=== PATIENT | male | born 1950 | race Caucasian/White ===

== ENCOUNTER 2023-02-28 02:02 | Inpatient (IN) | payer OTHER ==
--- OUTSIDE RECORDS SUMMARY | 2023-02-28 02:11 | XMS REPORT | Continuity of Care Document ---
:1950 Author Organization [facility] t Address [address] [facility] [address] [place] [address] Care Team Providers Name Role Phone JADEN WU Primary Care Physician Unavailable AYSE GONZALES Attending Clinician Unavailable Ayse Castillo Attending Clinician Vtc-Lab Attending Clinician Unavailable Sammy HERNANDEZ, Send[facility] Attending Clinician CARLOS CHRISTIANSON [facility] Attending Clinician Unavailable Pob, Adc Lab Main Attending Clinician Unavailable Neal Mars DO Attending Clinician Doctor Unassigned, [place] Attending Clinician Unavailable Anabella Call MD Attending Clinician ANABELLA CALL Attending Clinician Unavailable Tony Bustos RN Attending Clinician Unavailable Person Reddy HERNANDEZ Attending Clinician CHERYL HUGHES Attending Clinician Unavailable Cheryl Hughes MD Attending Clinician Person Reddy HERNANDEZ Admitting Clinician REDDY LUQUE Admitting Clinician Unavailable Payers Payer Name Policy Type Policy Number Effective Date Expiration Date S bellephil AL[employer] MEDICARE [id number] 2020 ADVANTAGE 00:00:00 [employer] [id number] 1999 ADMINISTRATION 00:00:00 Problems Condition Condition Condition Status Onset Resolution Last Treating Co mments Source Name Details Category Date Date Treatment Clinician Date Fall from Fall from Disease Active Uni vers ladder, ladder, 6-08 ity of initial initial 00:00: [place] encounter encounter 00 [facility] Branch Traumatic Traumatic Disease Active Uni vers fracture fracture 6-08 ity of of ribs of ribs 00:00: [place] with with 00 Medical pneumothor pneumothor Br anch ax, right, ax, right, closed, closed, initial initial encounter encounter JERAMY (acute JERAMY (acute Disease Active 2020-0 U nivers kidney kidney 02-13 ity of injury) injury) 00:00: [place] 00 Medical Branch Trauma Trauma Disease Active 2019-0 Univers 6-05 ity of 00:00: [place] 00 Medical Branch Allergies, Adverse Reactions, Alerts Allergy Allergy Status Severity Reaction(s) Onset Inactive Treating Comm ents Source Name Type Date Date Clinician PENICILL DRUG Active Unknown-Cmnt 0 Un karla IN INGREDI 6 ity of 00:00: [place] 00 Medical Branch Penicill Propensi Active Unknown - 2019-0 Uni vers in ty to See comments 02-10 ity of adverse 00:00: [place] reaction 00 Medical s Branch Penicill Propensi Active Unknown - 0 Uni vers in ty to See comments 6 ity of adverse 00:00: [place] reaction 00 Medical s Branch TOMATO DRUG Active Swelling 2006- Univers INGREDI 1-08 ity of 00:00: [place] 00 Medical Branch Tomato Propensi Active Swelling 2006- Tongue Univer s ty to 08 ity of adverse 00:00: [place] reaction 00 Medical s Branch NO KNOWN Drug Active Univers ALLERGIE Class ity of S [facility] Social History Social Habit Start Date Stop Date Quantity Comments Source History of Cigarette Smoker Universi ty of tobacco use [facility] Exposure to Not sure [facility] SARS-CoV-2 [place] [facility] (event) [place] Tobacco use and 2020-12-05 2020-12-05 Never used Universit y of exposure 00:00:00 00:00:00 [facility] Sex Assigned At [birth year] Universit y of 00:00:00 00:00:00 [facility] Smoking Status Start Date Stop Date Source Unknown if ever smoked Universit y [facility] Former smoker 2020-12-05 00:00:00 2020-12-05 00:00:00 Universi ty of [facility] Never smoker [facility] Medications Ordered Filled Start Stop Current Ordering Indication Dosage Frequency Signature Comments Components Source Medication Medication Date Date Medication? Clinician (SIG) Name Name tc 2020- No [id number] 43.2mCi 43.2 Univ ers 99m-tetrofo 4-04 11-08 [facility] 15:45: 15:35 , [place] ([facility]) 00 :00 Intravenou Medi arely injection s, ONCE, 1 Bran ch 43.2 dose, Camilla millicurie 12/14/20 at 1045, Routine tc 2020- No [id number] 16.3mCi 16.3 Univ ers 99m-tetrofo 4-04 11- [facility] 13:15: 13:07 , [place] ([facility]) 00 :00 Intravenou Medi arely injection s, ONCE, 1 Bran ch 16.3 dose, Camilla millicurie 12/14/20 at 0815, Routine lisinopriL 2020-0 Yes 20mg Take 1 Unive rs 20 mg 3-30 tablet by ity of tablet 00:00: mouth [place] 00 daily. Medical Branch magnesium 2020-0 Yes [id number] 71.5mg Take 1 Univers chloride 3-30 tablet by ity of (SLOW-MAG) 00:00: mouth [place] 71.5 mg 00 daily. Medical tablet Branch lisinopriL 2020-0 Yes 20mg Take 1 Unive rs 20 mg 3-30 tablet by ity of tablet 00:00: mouth [place] 00 daily. Medical Branch magnesium 2020-0 Yes [id number] 71.5mg Take 1 Univers chloride 3-30 tablet by ity of (SLOW-MAG) 00:00: mouth [place] 71.5 mg 00 daily. Medical tablet Branch lisinopriL 2020-0 Yes 20mg Take 1 Unive rs 20 mg 3-30 tablet by ity of tablet 00:00: mouth [place] 00 daily. Medical Branch magnesium 2020-0 Yes [id number] 71.5mg Take 1 Univers chloride 3-30 tablet by ity of (SLOW-MAG) 00:00: mouth [place] 71.5 mg 00 daily. Medical tablet Branch lisinopriL 2020-0 Yes 20mg Take 1 Unive rs 20 mg 3-30 tablet by ity of tablet 00:00: mouth [place] 00 daily. Medical Branch magnesium 2020-0 Yes [id number] 71.5mg Take 1 Univers chloride 3-30 tablet by ity of (SLOW-MAG) 00:00: mouth [place] 71.5 mg 00 daily. Medical tablet Branch lisinopriL 2020-0 Yes 20mg Take 1 Unive rs 20 mg 3-30 tablet by ity of tablet 00:00: mouth [place] 00 daily. Medical Branch magnesium 1-0 Yes [id number] 71.5mg Take 1 Univers chloride 3-30 tablet by ity of (SLOW-MAG) 00:00: mouth [place] 71.5 mg 00 daily. Medical tablet Branch lisinopriL 2020-0 Yes 20mg Take 1 Unive rs 20 mg 3-30 tablet by ity of tablet 00:00: mouth [place] 00 daily. Medical Branch magnesium 2020-0 Yes [id number] 71.5mg Take 1 Univers chloride 3-30 tablet by ity of (SLOW-MAG) 00:00: mouth [place] 71.5 mg 00 daily. Medical tablet Branch lisinopriL 2020-0 Yes 20mg Take 1 Unive rs 20 mg 3-30 tablet by ity of tablet 00:00: mouth [place] 00 daily. Medical Branch magnesium 2020-0 Yes [id number] 71.5mg Take 1 Univers chloride 3-30 tablet by ity of (SLOW-MAG) 00:00: mouth [place] 71.5 mg 00 daily. Medical tablet Branch lisinopriL 2020-0 Yes 20mg Take 1 Unive rs 20 mg 3-30 tablet by ity of tablet 00:00: mouth [place] 00 daily. Medical Branch magnesium 2020-0 Yes [id number] 71.5mg Take 1 Univers chloride 3-30 tablet by ity of (SLOW-MAG) 00:00: mouth [place] 71.5 mg 00 daily. Medical tablet Branch lisinopriL 2020-0 Yes 20mg Take 1 Unive rs 20 mg 3-30 tablet by ity of tablet 00:00: mouth [place] 00 daily. Medical Branch magnesium 2020-0 Yes [id number] 71.5mg Take 1 Univers chloride 3-30 tablet by ity of (SLOW-MAG) 00:00: mouth [place] 71.5 mg 00 daily. Medical tablet Branch lisinopriL 2020-0 Yes 20mg Take 1 Unive rs 20 mg 3-30 tablet by ity of tablet 00:00: mouth [place] 00 daily. Medical Branch magnesium 1-0 Yes [id number] 71.5mg Take 1 Univers chloride 3-30 tablet by ity of (SLOW-MAG) 00:00: mouth [place] 71.5 mg 00 daily. Medical tablet Branch lisinopriL 0 Yes 20mg Take 1 Unive rs 20 mg 3-30 tablet by ity of tablet 00:00: mouth [place] 00 daily. Medical Branch magnesium 0 Yes [id number] 71.5mg Take 1 Univers chloride 3-30 tablet by ity of (SLOW-MAG) 00:00: mouth [place] 71.5 mg 00 daily. Medical tablet Branch lisinopriL 0 Yes 20mg Take 1 Unive rs 20 mg 3-30 tablet by ity of tablet 00:00: mouth [place] 00 daily. Medical Branch magnesium 0 Yes [id number] 71.5mg Take 1 Univers chloride 3-30 tablet by ity of (SLOW-MAG) 00:00: mouth [place] 71.5 mg 00 daily. Medical tablet Branch aspirin 81 0 Yes 81mg Take 81 mg U nivers mg chewable 1-29 by mouth ity of tablet 17:10: daily. [place] [address] Medical Branch omeprazole 0 Yes 20mg Take 20 mg U nivers 20 mg 1-29 by mouth ity of capsule 17:10: daily. [place] [address] Medical Branch tamsulosin 0 Yes .4mg Take 0.4 Uni vers 0.4 mg 24 1-29 mg by ity of hr capsule 17:10: mouth [place] [address] daily. Medical Branch atorvastati 0 Yes 5mg Take 5 mg U nivers n 10 mg 1-29 by mouth ity of tablet 17:10: at [place] [address] bedtime. Medical Branch FLUoxetine 0 Yes 10mg Take 10 mg U nivers 10 mg 1-29 by mouth ity of capsule 17:10: daily. [place] [address] Medical Branch aspirin 81 0 Yes 81mg Take 81 mg U nivers mg chewable 1-29 by mouth ity of tablet 17:10: daily. [place] [address] Medical Branch omeprazole 0 Yes 20mg Take 20 mg U nivers 20 mg 1-29 by mouth ity of capsule 17:10: daily. [place] [address] Medical Branch tamsulosin 0 Yes .4mg Take 0.4 Uni vers 0.4 mg 24 1-29 mg by ity of hr capsule 17:10: mouth [place] 53 daily. Medical Branch atorvastati 0 Yes 5mg Take 5 mg U nivers n 10 mg 1-29 by mouth ity of tablet 17:10: at [place] [address] bedtime. Medical Branch FLUoxetine 2020-0 Yes 10mg Take 10 mg U nivers 10 mg 1-29 by mouth ity of capsule 17:10: daily. [place] [address] Medical Branch aspirin 81 2020-0 Yes 81mg Take 81 mg U nivers mg chewable 1-29 by mouth ity of tablet 17:10: daily. [place] [address] Medical Branch omeprazole 2020-0 Yes 20mg Take 20 mg U nivers 20 mg 1-29 by mouth ity of capsule 17:10: daily. [place] [address] Medical Branch tamsulosin 2020-0 Yes .4mg Take 0.4 Uni vers 0.4 mg 24 1-29 mg by ity of hr capsule 17:10: mouth [place] [address] daily. Medical Branch atorvastati 0 Yes 5mg Take 5 mg U nivers n 10 mg 1-29 by mouth ity of tablet 17:10: at [place] [address] bedtime. Medical Branch FLUoxetine 2020-0 Yes 10mg Take 10 mg U nivers 10 mg 1-29 by mouth ity of capsule 17:10: daily. [address] Branch aspirin 81 2020-0 Yes 81mg Take 81 mg U nivers mg chewable 1-29 by mouth ity of tablet 17:10: daily. [place] [address] Medical Branch omeprazole 2020-0 Yes 20mg Take 20 mg U nivers 20 mg 1-29 by mouth ity of capsule 17:10: daily. [place] [address] Medical Branch tamsulosin 2020-0 Yes .4mg Take 0.4 Uni vers 0.4 mg 24 1-29 mg by ity of hr capsule 17:10: mouth [place] [address] daily. Medical Branch atorvastati 2020-0 Yes 5mg Take 5 mg U nivers n 10 mg 1-29 by mouth ity of tablet 17:10: at [place] [address] bedtime. Medical Branch FLUoxetine 2020-0 Yes 10mg Take 10 mg U nivers 10 mg 1-29 by mouth ity of capsule 17:10: daily. [address] Branch aspirin 81 2020-0 Yes 81mg Take 81 mg U nivers mg chewable 1-29 by mouth ity of tablet 17:10: daily. [place] [address] Medical Branch omeprazole 2021-0 Yes 20mg Take 20 mg U nivers 20 mg 1-29 by mouth ity of capsule 17:10: daily. [place] [address] Medical Branch tamsulosin 2020-0 Yes .4mg Take 0.4 Uni vers 0.4 mg 24 1-29 mg by ity of hr capsule 17:10: mouth [place] [address] daily. Medical Branch atorvastati 2020-0 Yes 5mg Take 5 mg U nivers n 10 mg 1-29 by mouth ity of tablet 17:10: at [place] [address] bedtime. Medical Branch FLUoxetine 2020-0 Yes 10mg Take 10 mg U nivers 10 mg 1-29 by mouth ity of capsule 17:10: daily. [place] [address] Medical Branch aspirin 81 2020-0 Yes 81mg Take 81 mg U nivers mg chewable 1-29 by mouth ity of tablet 17:10: daily. [place] [address] Medical Branch omeprazole 0 Yes 20mg Take 20 mg U nivers 20 mg 1-29 by mouth ity of capsule 17:10: daily. [place] [address] Medical Branch tamsulosin 2020-0 Yes .4mg Take 0.4 Uni vers 0.4 mg 24 1-29 mg by ity of hr capsule 17:10: mouth [place] [address] daily. Medical Branch atorvastati 0 Yes 5mg Take 5 mg U nivers n 10 mg 1-29 by mouth ity of tablet 17:10: at [place] [address] bedtime. Medical Branch FLUoxetine 0 Yes 10mg Take 10 mg U nivers 10 mg 1-29 by mouth ity of capsule 17:10: daily. [place] [address] Medical Branch aspirin 81 2020-0 Yes 81mg Take 81 mg U nivers mg chewable 1-29 by mouth ity of tablet 17:10: daily. [place] [address] Medical Branch omeprazole 2020-0 Yes 20mg Take 20 mg U nivers 20 mg 1-29 by mouth ity of capsule 17:10: daily. [place] [address] Medical Branch tamsulosin 2020-0 Yes .4mg Take 0.4 Uni vers 0.4 mg 24 1-29 mg by ity of hr capsule 17:10: mouth [place] [address] daily. Medical Branch atorvastati 2020-0 Yes 5mg Take 5 mg U nivers n 10 mg 1-29 by mouth ity of tablet 17:10: at [place] [address] bedtime. Medical Branch FLUoxetine 2020-0 Yes 10mg Take 10 mg U nivers 10 mg 1-29 by mouth ity of capsule 17:10: daily. [address] Branch aspirin 81 2020-0 Yes 81mg Take 81 mg U nivers mg chewable 1-29 by mouth ity of tablet 17:10: daily. [address] Branch omeprazole 2020-0 Yes 20mg Take 20 mg U nivers 20 mg 1-29 by mouth ity of capsule 17:10: daily. [place] [address] Medical Branch tamsulosin 2020-0 Yes .4mg Take 0.4 Uni vers 0.4 mg 24 1-29 mg by ity of hr capsule 17:10: mouth [place] [address] daily. Medical Branch atorvastati 2020-0 Yes 5mg Take 5 mg U nivers n 10 mg 1-29 by mouth ity of tablet 17:10: at [place] [address] bedtime. Medical Branch FLUoxetine 2020-0 Yes 10mg Take 10 mg U nivers 10 mg 1-29 by mouth ity of capsule 17:10: daily. [address] aspirin 81 2020-0 Yes 81mg Take 81 mg U nivers mg chewable 1-29 by mouth ity of tablet 17:10: daily. [place] [address] Medical Branch omeprazole 2020-0 Yes 20mg Take 20 mg U nivers 20 mg 1-29 by mouth ity of capsule 17:10: daily. [address] Branch tamsulosin 2020-0 Yes .4mg Take 0.4 Uni vers 0.4 mg 24 1-29 mg by ity of hr capsule 17:10: mouth [place] [address] daily. Medical Branch atorvastati 2020-0 Yes 5mg Take 5 mg U nivers n 10 mg 1-29 by mouth ity of tablet 17:10: at [place] [address] bedtime. Medical Branch FLUoxetine 2020-0 Yes 10mg Take 10 mg U nivers 10 mg 1-29 by mouth ity of capsule 17:10: daily. [address] Branch aspirin 81 2020-0 Yes 81mg Take 81 mg U nivers mg chewable 1-29 by mouth ity of tablet 17:10: daily. [address] omeprazole 2020-0 Yes 20mg Take 20 mg U nivers 20 mg 1-29 by mouth ity of capsule 17:10: daily. [place] [address] Medical Branch tamsulosin 2021-0 Yes .4mg Take 0.4 Uni vers 0.4 mg 24 1-29 mg by ity of hr capsule 17:10: mouth [place] [address] daily. Medical Branch atorvastati 0 Yes 5mg Take 5 mg U nivers n 10 mg 1-29 by mouth ity of tablet 17:10: at [place] [address] bedtime. Medical Branch FLUoxetine 2020-0 Yes 10mg Take 10 mg U nivers 10 mg 1-29 by mouth ity of capsule 17:10: daily. [place] [address] Medical Branch aspirin 81 2020-0 Yes 81mg Take 81 mg U nivers mg chewable 1-29 by mouth ity of tablet 17:10: daily. [place] [address] Medical Branch omeprazole 0 Yes 20mg Take 20 mg U nivers 20 mg 1-29 by mouth ity of capsule 17:10: daily. [place] [address] Medical Branch tamsulosin 0 Yes .4mg Take 0.4 Uni vers 0.4 mg 24 1-29 mg by ity of hr capsule 17:10: mouth [place] [address] daily. Medical Branch atorvastati 0 Yes 5mg Take 5 mg U nivers n 10 mg 1-29 by mouth ity of tablet 17:10: at [place] [address] bedtime. Medical Branch FLUoxetine 0 Yes 10mg Take 10 mg U nivers 10 mg 1-29 by mouth ity of capsule 17:10: daily. [address] Branch aspirin 81 2020-0 Yes 81mg Take 81 mg U nivers mg chewable 1-29 by mouth ity of tablet 17:10: daily. [place] [address] Medical Branch omeprazole 2020-0 Yes 20mg Take 20 mg U nivers 20 mg 1-29 by mouth ity of capsule 17:10: daily. [place] [address] Medical Branch tamsulosin 0 Yes .4mg Take 0.4 Uni vers 0.4 mg 24 1-29 mg by ity of hr capsule 17:10: mouth [place] [address] daily. Medical Branch atorvastati 0 Yes 5mg Take 5 mg U nivers n 10 mg 1-29 by mouth ity of tablet 17:10: at [place] [address] bedtime. Medical Branch FLUoxetine 2020-0 Yes 10mg Take 10 mg U nivers 10 mg 1-29 by mouth ity of capsule 17:10: daily. [place] [address] Medical Branch aspirin 81 2020-0 Yes 81mg Take 81 mg U nivers mg chewable 1-29 by mouth ity of tablet 17:10: daily. [place] [address] Medical Branch omeprazole 2020-0 Yes 20mg Take 20 mg U nivers 20 mg 1-29 by mouth ity of capsule 17:10: daily. [address] Branch tamsulosin 0 Yes .4mg Take 0.4 Uni vers 0.4 mg 24 1-29 mg by ity of hr capsule 17:10: mouth [place] [address] daily. Medical Branch atorvastati 2020-0 Yes 5mg Take 5 mg U nivers n 10 mg 1-29 by mouth ity of tablet 17:10: at [place] [address] bedtime. Medical Branch FLUoxetine 2020-0 Yes 10mg Take 10 mg U nivers 10 mg 1-29 by mouth ity of capsule 17:10: daily. [address] aspirin 81 2020-0 Yes 81mg Take 81 mg U nivers mg chewable 1-29 by mouth ity of tablet 17:10: daily. [address] Branch omeprazole 2020-0 Yes 20mg Take 20 mg U nivers 20 mg 1-29 by mouth ity of capsule 17:10: daily. [address] Branch tamsulosin 0 Yes .4mg Take 0.4 Uni vers 0.4 mg 24 1-29 mg by ity of hr capsule 17:10: mouth [place] [address] daily. Medical Branch atorvastati 0 Yes 5mg Take 5 mg U nivers n 10 mg 1-29 by mouth ity of tablet 17:10: at [place] [address] bedtime. Medical Branch FLUoxetine 2020-0 Yes 10mg Take 10 mg U nivers 10 mg 1-29 by mouth ity of capsule 17:10: daily. [address] aspirin 81 2020-0 Yes 81mg Take 81 mg U nivers mg chewable 1-29 by mouth ity of tablet 17:10: daily. [address] Branch omeprazole 2020-0 Yes 20mg Take 20 mg U nivers 20 mg 1-29 by mouth ity of capsule 17:10: daily. [address] Branch tamsulosin 2020-0 Yes .4mg Take 0.4 Uni vers 0.4 mg 24 1-29 mg by ity of hr capsule 17:10: mouth [place] [address] daily. Medical Branch atorvastati 2021-0 Yes 5mg Take 5 mg U nivers n 10 mg 1-29 by mouth ity of tablet 17:10: at [place] [address] bedtime. Medical Branch FLUoxetine 2020-0 Yes 10mg Take 10 mg U nivers 10 mg 1-29 by mouth ity of capsule 17:10: daily. [address] Branch aspirin 81 2020-0 Yes 81mg Take 81 mg U nivers mg chewable 1-29 by mouth ity of tablet 17:10: daily. [address] Branch omeprazole 2020-0 Yes 20mg Take 20 mg U nivers 20 mg 1-29 by mouth ity of capsule 17:10: daily. [address] Branch tamsulosin 0 Yes .4mg Take 0.4 Uni vers 0.4 mg 24 1-29 mg by ity of hr capsule 17:10: mouth [place] [address] daily. Medical Branch atorvastati 0 Yes 5mg Take 5 mg U nivers n 10 mg 1-29 by mouth ity of tablet 17:10: at [place] [address] bedtime. Medical Branch FLUoxetine 2020-0 Yes 10mg Take 10 mg U nivers 10 mg 1-29 by mouth ity of capsule 17:10: daily. [address] Branch aspirin 81 0 Yes 81mg Take 81 mg U nivers mg chewable 1-29 by mouth ity of tablet 17:10: daily. [address] Branch omeprazole 2020-0 Yes 20mg Take 20 mg U nivers 20 mg 1-29 by mouth ity of capsule 17:10: daily. [address] tamsulosin 2020-0 Yes .4mg Take 0.4 Uni vers 0.4 mg 24 1-29 mg by ity of hr capsule 17:10: mouth [place] [address] daily. Medical Branch atorvastati 0 Yes 5mg Take 5 mg U nivers n 10 mg 1-29 by mouth ity of tablet 17:10: at [place] [address] bedtime. Medical Branch FLUoxetine 2020-0 Yes 10mg Take 10 mg U nivers 10 mg 1-29 by mouth ity of capsule 17:10: daily. [address] aspirin 81 2020-0 Yes 81mg Take 81 mg U nivers mg chewable 1-29 by mouth ity of tablet 17:10: daily. [address] Branch omeprazole 2020-0 Yes 20mg Take 20 mg U nivers 20 mg 1-29 by mouth ity of capsule 17:10: daily. [place] [address] Medical Branch tamsulosin 2020-0 Yes .4mg Take 0.4 Uni vers 0.4 mg 24 1-29 mg by ity of hr capsule 17:10: mouth [place] 53 daily. Medical Branch atorvastati 0 Yes 5mg Take 5 mg U nivers n 10 mg 1-29 by mouth ity of tablet 17:10: at [place] [address] bedtime. Medical Branch FLUoxetine 0 Yes 10mg Take 10 mg U nivers 10 mg 1-29 by mouth ity of capsule 17:10: daily. [place] [address] Medical Branch metFORMIN 2020-0 2020- No 500mg Take 500 Un karla 500 mg 24 1-29 01-29 mg by ity of hr tablet 17:10: 00:00 mouth [place] 40 :00 daily with Medical breakfast. Branch metFORMIN 2020-0 2020- No 500mg Take 500 Un karla 500 mg 24 1-29 01-29 mg by ity of hr tablet 17:10: 00:00 mouth [place] 40 :00 daily with Medical breakfast. Branch metFORMIN 2020-0 2020- No 500mg Take 500 Un karla 500 mg 24 1-29 01-29 mg by ity of hr tablet 17:10: 00:00 mouth [place] 40 :00 daily with Medical breakfast. Branch amLODIPine 0 Yes [id number] 10mg Take 1 U nivers 10 mg 1-19 tablet by ity of tablet 00:00: mouth [place] 00 daily. Medical Branch amLODIPine 2020-0 Yes [id number] 10mg Take 1 U nivers 10 mg 1-19 tablet by ity of tablet 00:00: mouth [place] 00 daily. Medical Branch magnesium 2020-0 Yes 400mg Take 1 Unive rs oxide 1-19 tablet by ity of (MAGOX) 400 00:00: mouth [place] mg (241.3 00 daily. Medical mg Branch magnesium) tablet amLODIPine 0 Yes [id number] 10mg Take 1 U nivers 10 mg 1-19 tablet by ity of tablet 00:00: mouth [place] 00 daily. Medical Branch magnesium 2020-0 Yes 400mg Take 1 Unive rs oxide 1-19 tablet by ity of (MAGOX) 400 00:00: mouth [place] mg (241.3 00 daily. Medical mg Branch magnesium) tablet amLODIPine 2020-0 Yes [id number] 10mg Take 1 U nivers 10 mg 1-19 tablet by ity of tablet 00:00: mouth [place] 00 daily. Medical Branch magnesium 2020-0 Yes 400mg Take 1 Unive rs oxide 1-19 tablet by ity of (MAGOX) 400 00:00: mouth [place] mg (241.3 00 daily. Medical mg Branch magnesium) tablet amLODIPine 2020-0 Yes [id number] 10mg Take 1 U nivers 10 mg 1-19 tablet by ity of tablet 00:00: mouth [place] 00 daily. Medical Branch magnesium 2020-0 Yes 400mg Take 1 Unive rs oxide 1-19 tablet by ity of (MAGOX) 400 00:00: mouth [place] mg (241.3 00 daily. Medical mg Branch magnesium) tablet amLODIPine 2020-0 Yes [id number] 10mg Take 1 U nivers 10 mg 1-19 tablet by ity of tablet 00:00: mouth [place] 00 daily. Medical Branch magnesium 2020-0 Yes 400mg Take 1 Unive rs oxide 1-19 tablet by ity of (MAGOX) 400 00:00: mouth [place] mg (241.3 00 daily. Medical mg Branch magnesium) tablet amLODIPine 2020-0 Yes [id number] 10mg Take 1 U nivers 10 mg 1-19 tablet by ity of tablet 00:00: mouth [place] 00 daily. Medical Branch magnesium 2020-0 Yes 400mg Take 1 Unive rs oxide 1-19 tablet by ity of (MAGOX) 400 00:00: mouth [place] mg (241.3 00 daily. Medical mg Branch magnesium) tablet amLODIPine 2020-0 Yes [id number] 10mg Take 1 U nivers 10 mg 1-19 tablet by ity of tablet 00:00: mouth [place] 00 daily. Medical Branch magnesium 2020-0 Yes 400mg Take 1 Unive rs oxide 1-19 tablet by ity of (MAGOX) 400 00:00: mouth [place] mg (241.3 00 daily. Medical mg Branch magnesium) tablet amLODIPine 2020-0 Yes [id number] 10mg Take 1 U nivers 10 mg 1-19 tablet by ity of tablet 00:00: mouth [place] 00 daily. Medical Branch amLODIPine 2020-0 Yes [id number] 10mg Take 1 U nivers 10 mg 1-19 tablet by ity of tablet 00:00: mouth [place] 00 daily. Medical Branch amLODIPine 0 Yes [id number] 10mg Take 1 U nivers 10 mg 1-19 tablet by ity of tablet 00:00: mouth [place] 00 daily. Medical Branch amLODIPine 0 Yes [id number] 10mg Take 1 U nivers 10 mg 1-19 tablet by ity of tablet 00:00: mouth [place] 00 daily. Medical Branch amLODIPine 0 Yes [id number] 10mg Take 1 U nivers 10 mg 1-19 tablet by ity of tablet 00:00: mouth [place] 00 daily. Medical Branch amLODIPine 0 Yes [id number] 10mg Take 1 U nivers 10 mg 1-19 tablet by ity of tablet 00:00: mouth [place] 00 daily. Medical Branch amLODIPine Yes [id number] 10mg Take 1 U nivers 10 mg 1-19 tablet by ity of tablet 00:00: mouth [place] 00 daily. Medical Branch amLODIPine Yes [id number] 10mg Take 1 U nivers 10 mg 1-19 tablet by ity of tablet 00:00: mouth [place] 00 daily. Medical Branch amLODIPine Yes [id number] 10mg Take 1 U nivers 10 mg 1-19 tablet by ity of tablet 00:00: mouth [place] 00 daily. Medical Branch amLODIPine Yes [id number] 10mg Take 1 U nivers 10 mg 1-19 tablet by ity of tablet 00:00: mouth [place] 00 daily. Medical Branch amLODIPine Yes [id number] 10mg Take 1 U nivers 10 mg 1-19 tablet by ity of tablet 00:00: mouth [place] 00 daily. Medical Branch magnesium 2020-0 2020- No 400mg Take 1 Univ ers oxide 1-19 03-30 tablet by ity of (MAGOX) 400 00:00: 00:00 [place] mg (241.3 00 :00 daily. Medical mg Branch magnesium) tablet magnesium 2020-0 2020- No 400mg Take 1 Univ ers oxide 1-19 03-30 tablet by ity of (MAGOX) 400 00:00: 00:00 [place] mg (241.3 00 :00 daily. Medical mg Branch magnesium) tablet metformin Yes TAKE TWO Univ ers ER 500 mg 1-11 TABLETS BY ity of 24 hr 00:00: MOUTH [place] tablet 00 TWICE A Medical DAY FOR Branch DIABETES *DO NOT CRUSH* CHANGE IN FORMULATIO N metformin Yes TAKE TWO Univ ers ER 500 mg 1-11 TABLETS BY ity of 24 hr 00:00: MOUTH [place] tablet 00 TWICE A Medical DAY FOR Branch DIABETES *DO NOT CRUSH* CHANGE IN FORMULATIO N metformin Yes TAKE TWO [facility] ER 500 mg 1-11 TABLETS BY it[facility] of 24 hr 00:00: MOUTH [place] tablet 00 TWICE A Medical DAY FOR Branch DIABETES *DO NOT CRUSH* CHANGE IN FORMULATIO N metformin Yes TAKE TWO [facility] ER 500 mg 1-11 TABLETS BY it[facility] of 24 hr 00:00: MOUTH [place] tablet 00 TWICE A Medical DAY FOR Branch DIABETES *DO NOT CRUSH* CHANGE IN FORMULATIO N metformin Yes TAKE TWO [facility] ER 500 mg 1-11 TABLETS BY it[facility] of 24 hr 00:00: MOUTH [place] tablet 00 TWICE A Medical DAY FOR Branch DIABETES *DO NOT CRUSH* CHANGE IN FORMULATIO N metformin Yes TAKE TWO [facility] ER 500 mg 1-11 TABLETS BY ity of 24 hr 00:00: MOUTH [place] tablet 00 TWICE A Medical DAY FOR Branch DIABETES *DO NOT CRUSH* CHANGE IN FORMULATIO N metformin Yes TAKE TWO [facility] ER 500 mg 1-11 TABLETS BY it[facility] of 24 hr 00:00: MOUTH [place] tablet 00 TWICE A Medical DAY FOR Branch DIABETES *DO NOT CRUSH* CHANGE IN FORMULATIO N metformin Yes TAKE TWO [facility] ER 500 mg 1-11 TABLETS BY it[facility] of 24 hr 00:00: MOUTH [place] tablet 00 TWICE A Medical DAY FOR Branch DIABETES *DO NOT CRUSH* CHANGE IN FORMULATIO N metformin Yes TAKE TWO [facility] ER 500 mg 1-11 TABLETS BY it[facility] of 24 hr 00:00: MOUTH [place] tablet 00 TWICE A Medical DAY FOR Branch DIABETES *DO NOT CRUSH* CHANGE IN FORMULATIO N metformin Yes TAKE TWO [facility] ER 500 mg 1-11 TABLETS BY it[facility] of 24 hr 00:00: MOUTH [place] tablet 00 TWICE A Medical DAY FOR Branch DIABETES *DO NOT CRUSH* CHANGE IN FORMULATIO N metformin Yes TAKE TWO [facility] ER 500 mg 1-11 TABLETS BY it[facility] of 24 hr 00:00: MOUTH [place] tablet 00 TWICE A Medical DAY FOR Branch DIABETES *DO NOT CRUSH* CHANGE IN FORMULATIO N metformin Yes TAKE TWO [facility] ER 500 mg 1-11 TABLETS BY it[facility] of 24 hr 00:00: MOUTH [place] tablet 00 TWICE A Medical DAY FOR Branch DIABETES *DO NOT CRUSH* CHANGE IN FORMULATIO N metformin Yes TAKE TWO [facility] ER 500 mg 1-11 TABLETS BY it[facility] of 24 hr 00:00: MOUTH [place] tablet 00 TWICE A Medical DAY FOR Branch DIABETES *DO NOT CRUSH* CHANGE IN FORMULATIO N metformin Yes TAKE TWO [facility] ER 500 mg 1-11 TABLETS BY it[facility] of 24 hr 00:00: MOUTH [place] tablet 00 TWICE A Medical DAY FOR Branch DIABETES *DO NOT CRUSH* CHANGE IN FORMULATIO N metformin 2020- No TAKE TWO [facility] ER 500 mg 1-11 06-30 TABLETS BY it[facility] of 24 hr 00:00: 00:00 MOUTH [place] tablet 00 :00 TWICE A Medical DAY FOR Branch DIABETES *DO NOT CRUSH* CHANGE IN FORMULATIO N metformin 2020- No TAKE TWO [facility] ER 500 mg 1-11 06-30 TABLETS BY [facility] of 24 hr 00:00: 00:00 MOUTH [place] tablet 00 :00 TWICE A Medical DAY FOR Branch DIABETES *DO NOT CRUSH* CHANGE IN FORMULATIO N AMLODIPINE 2019-09 Yes [id number] Take 1 [facility] 10 mg 2-08 tablet by [facility] of tablet 00:00: mouth daily Medical Branch AMLODIPINE 2020- Yes [id number] Take 1 [facility] 10 mg 2-08 tablet by ity of tablet 00:00: mouth once daily Medical Branch AMLODIPINE 2020- Yes [id number] Take 1 [facility] 10 mg 2-08 tablet by ity of tablet 00:00: mouth once daily Medical Branch AMLODIPINE 2020- Yes [id number] Take 1 [facility] 10 mg 2-08 tablet by ity of tablet 00:00: mouth once 00 daily Medical Branch AMLODIPINE 2020-2020- No [id number] Take 1 [facility] 10 mg 2-08 01-10 tablet by [facility] of tablet 00:00: 00:00 mouth [place] 00 :00 daily [facility] magnesium 2020-0 Yes 400mg Take 1 [facility] rs oxide 8-13 tablet by ity of (MAGOX) 400 00:00: mouth [place] mg (241.3 00 daily. Medical mg Call the Branch magnesium) office for tablet more informatio n magnesium 2020-0 Yes 400mg Take 1 [facility] oxide 8-13 tablet by ity of (MAGOX) 400 00:00: mouth [place] mg (241.3 00 daily. Medical mg Call the Branch magnesium) office for tablet more informatio n magnesium 2020-0 Yes 400mg Take 1 [facility] oxide 8-13 tablet by ity of (MAGOX) 400 00:00: mouth [place] mg (241.3 00 daily. Medical mg Call the Branch magnesium) office for tablet more informatio n magnesium 2020-0 Yes 400mg Take 1 [facility] oxide 8-13 tablet by ity of (MAGOX) 400 00:00: mouth [place] mg (241.3 00 daily. Medical mg Call the Branch magnesium) office for tablet more informatio n magnesium 2020-0 Yes 400mg Take 1 [facility] oxide 8-13 tablet by ity of (MAGOX) 400 00:00: mouth [place] mg (241.3 00 daily. Medical mg Call the Branch magnesium) office for tablet more informatio n magnesium 2020-0 Yes 400mg Take 1 [facility] oxide 8-13 tablet by ity of (MAGOX) 400 00:00: mouth [place] mg (241.3 00 daily. Medical mg Call the [place] magnesium) office for tablet more informatio n magnesium 2020-0 2021- No 400mg Take 1 [facility] ers oxide 8-13 01-10 tablet by ity of (MAGOX) 400 00:00: 00:00 mouth [place] mg (241.3 00 :00 daily. Medical mg Call the Branch magnesium) office for tablet more informatio n insulin 2020-0 Yes INJECT 6 [facility] aspart, 8-06 UNITS ity of niacinamide 00:00: UNDER THE [place] , 100 00 SKIN THREE Medical unit/mL (3 TIMES A Branch mL) InPn DAY 5 MINUTES BEFORE MEALS FOR DIABETES. DO NOT ADMINISTER IF A MEAL IS MISSED insulin 2020-0 Yes INJECT 6 [facility] aspart, 8-06 UNITS ity of niacinamide 00:00: UNDER THE [place] , 100 00 SKIN THREE Medical unit/mL (3 TIMES A Branch mL) InPn DAY 5 MINUTES BEFORE MEALS FOR DIABETES. DO NOT ADMINISTER IF A MEAL IS MISSED insulin 2020-0 Yes INJECT 6 [facility] aspart, 8-06 UNITS ity of niacinamide 00:00: UNDER THE [place] , 100 00 SKIN THREE Medical unit/mL (3 TIMES A Branch mL) InPn DAY 5 MINUTES BEFORE MEALS FOR DIABETES. DO NOT ADMINISTER IF A MEAL IS MISSED insulin 2020-0 Yes INJECT 6 [facility] aspart, 8-06 UNITS ity of niacinamide 00:00: UNDER THE [place] , 100 00 SKIN THREE Medical unit/mL (3 TIMES A Branch mL) InPn DAY 5 MINUTES BEFORE MEALS FOR DIABETES. DO NOT ADMINISTER IF A MEAL IS MISSED insulin 2020-0 Yes INJECT 6 [facility] aspart, 8-06 UNITS ity of niacinamide 00:00: UNDER THE [place] , 100 00 SKIN THREE Medical unit/mL (3 TIMES A Branch mL) InPn DAY 5 MINUTES BEFORE MEALS FOR DIABETES. DO NOT ADMINISTER IF A MEAL IS MISSED insulin 2020-0 Yes INJECT 6 [facility] aspart, 8-06 UNITS ity of niacinamide 00:00: UNDER THE [place] , 100 00 SKIN THREE Medical unit/mL (3 TIMES A Branch mL) InPn DAY 5 MINUTES BEFORE MEALS FOR DIABETES. DO NOT ADMINISTER IF A MEAL IS MISSED insulin 2020-0 Yes INJECT 6 [facility] aspart, 8-06 UNITS ity of niacinamide 00:00: UNDER THE [place] , 100 00 SKIN THREE Medical unit/mL (3 TIMES A Branch mL) InPn DAY 5 MINUTES BEFORE MEALS FOR DIABETES. DO NOT ADMINISTER IF A MEAL IS MISSED insulin 2020-0 Yes INJECT 6 [facility] aspart, 8-06 UNITS ity of niacinamide 00:00: UNDER THE [place] , 100 00 SKIN THREE Medical unit/mL (3 TIMES A Branch mL) InPn DAY 5 MINUTES BEFORE MEALS FOR DIABETES. DO NOT ADMINISTER IF A MEAL IS MISSED insulin 2020-0 Yes INJECT 6 [facility] aspart, 8-06 UNITS ity of niacinamide 00:00: UNDER THE [place] , 100 00 SKIN THREE Medical unit/mL (3 TIMES A Branch mL) InPn DAY 5 MINUTES BEFORE MEALS FOR DIABETES. DO NOT ADMINISTER IF A MEAL IS MISSED insulin 2020-0 Yes INJECT 6 [facility] aspart, 8-06 UNITS ity of niacinamide 00:00: UNDER THE [place] , 100 00 SKIN THREE Medical unit/mL (3 TIMES A Branch mL) InPn DAY 5 MINUTES BEFORE MEALS FOR DIABETES. DO NOT ADMINISTER IF A MEAL IS MISSED insulin 2020-0 Yes INJECT 6 [facility] aspart, 8-06 UNITS ity of niacinamide 00:00: UNDER THE [place] , 100 00 SKIN THREE Medical unit/mL (3 TIMES A Branch mL) InPn DAY 5 MINUTES BEFORE MEALS FOR DIABETES. DO NOT ADMINISTER IF A MEAL IS MISSED insulin 2020-0 Yes INJECT 6 [facility] aspart, 8-06 UNITS ity of niacinamide 00:00: UNDER THE [place] , 100 00 SKIN THREE Medical unit/mL (3 TIMES A Branch mL) InPn DAY 5 MINUTES BEFORE MEALS FOR DIABETES. DO NOT ADMINISTER IF A MEAL IS MISSED insulin 2020-0 Yes INJECT 6 [facility] aspart, 8-06 UNITS ity of niacinamide 00:00: UNDER THE [place] , 100 00 SKIN THREE Medical unit/mL (3 TIMES A Branch mL) InPn DAY 5 MINUTES BEFORE MEALS FOR DIABETES. DO NOT ADMINISTER IF A MEAL IS MISSED insulin 2020-0 Yes INJECT 6 [facility] aspart, 8-06 UNITS ity of niacinamide 00:00: UNDER THE [place] , 100 00 SKIN THREE Medical unit/mL (3 TIMES A Branch mL) InPn DAY 5 MINUTES BEFORE MEALS FOR DIABETES. DO NOT ADMINISTER IF A MEAL IS MISSED insulin 2020-0 Yes INJECT 6 [facility] aspart, 8-06 UNITS ity of niacinamide 00:00: UNDER THE [place] , 100 00 SKIN THREE Medical unit/mL (3 TIMES A Branch mL) InPn DAY 5 MINUTES BEFORE MEALS FOR DIABETES. DO NOT ADMINISTER IF A MEAL IS MISSED insulin 2020-0 Yes INJECT 6 [facility] aspart, 8-06 UNITS ity of niacinamide 00:00: UNDER THE [place] , 100 00 SKIN THREE Medical unit/mL (3 TIMES A Branch mL) InPn DAY 5 MINUTES BEFORE MEALS FOR DIABETES. DO NOT ADMINISTER IF A MEAL IS MISSED insulin 2020-0 Yes INJECT 6 [facility] aspart, 8-06 UNITS ity of niacinamide 00:00: UNDER THE [place] , 100 00 SKIN THREE Medical unit/mL (3 TIMES A Branch mL) InPn DAY 5 MINUTES BEFORE MEALS FOR DIABETES. DO NOT ADMINISTER IF A MEAL IS MISSED insulin 2020-0 Yes INJECT 6 [facility] aspart, 8-06 UNITS ity of niacinamide 00:00: UNDER THE [place] , 100 00 SKIN THREE Medical unit/mL (3 TIMES A Branch mL) InPn DAY 5 MINUTES BEFORE MEALS FOR DIABETES. DO NOT ADMINISTER IF A MEAL IS MISSED hydroCHLORO 2020-0 Yes [id number] 25mg Take 1 [facility] thiazide 25 7-17 tablet by ity of mg tablet 00:00: mouth [place] 00 daily. [facility] Branch amLODIPine 2020-0 Yes [id number] 10mg Take 1 U nivers 10 mg 7-17 tablet by ity of tablet 00:00: mouth [place] 00 daily. [facility] Branch hydroCHLORO 2020-0 Yes [id number] 25mg Take 1 [facility] thiazide 25 7-17 tablet by ity of mg tablet 00:00: mouth [place] 00 daily. [facility] Branch amLODIPine 2020-0 Yes [id number] 10mg Take 1 U nivers 10 mg 7-17 tablet by ity of tablet 00:00: mouth [place] 00 daily. [facility] Branch hydroCHLORO 2020-0 Yes [id number] 25mg Take 1 [facility] thiazide 25 7-17 tablet by ity of mg tablet 00:00: mouth [place] 00 daily. [facility] amLODIPine 2020-0 Yes [id number] 10mg Take 1 U nivers 10 mg 7-17 tablet by ity of tablet 00:00: mouth [place] 00 daily. [facility] hydroCHLORO 2020-0 Yes [id number] 25mg Take 1 [facility] thiazide 25 7-17 tablet by ity of mg tablet 00:00: mouth [place] 00 daily. [facility] hydroCHLORO 2020-0 Yes [id number] 25mg Take 1 [facility] thiazide 25 7-17 tablet by ity of mg tablet 00:00: mouth [place] 00 daily. [facility] hydroCHLORO 2020-0 Yes [id number] 25mg Take 1 [facility] thiazide 25 7-17 tablet by ity of mg tablet 00:00: mouth [place] 00 daily. [facility] hydroCHLORO 2020-0 Yes [id number] 25mg Take 1 [facility] thiazide 25 7-17 tablet by ity of mg tablet 00:00: mouth [place] 00 daily. [facility] hydroCHLORO 2020-0 Yes [id number] 25mg Take 1 [facility] thiazide 25 7-17 tablet by ity of mg tablet 00:00: mouth [place] 00 daily. [facility] hydroCHLORO 2020-0 Yes [id number] 25mg Take 1 [facility] thiazide 25 7-17 tablet by ity of mg tablet 00:00: mouth [place] 00 daily. Medical Branch hydroCHLORO 2020-0 Yes [id number] 25mg Take 1 [facility] thiazide 25 7-17 tablet by ity of mg tablet 00:00: mouth [place] 00 daily. Medical Branch hydroCHLORO 2020-0 Yes [id number] 25mg Take 1 [facility] thiazide 25 7-17 tablet by ity of mg tablet 00:00: mouth [place] 00 daily. Medical Branch hydroCHLORO 2020-0 Yes [id number] 25mg Take 1 [facility] thiazide 25 7-17 tablet by ity of mg tablet 00:00: mouth [place] 00 daily. Medical Branch hydroCHLORO 2020-0 Yes [id number] 25mg Take 1 [facility] thiazide 25 7-17 tablet by ity of mg tablet 00:00: mouth [place] 00 daily. [facility] Branch hydroCHLORO 2020-0 Yes [id number] 25mg Take 1 [facility] thiazide 25 7-17 tablet by ity of mg tablet 00:00: mouth [place] 00 daily. Medical Branch hydroCHLORO 2020-0 Yes [id number] 25mg Take 1 [facility] thiazide 25 7-17 tablet by ity of mg tablet 00:00: mouth [place] 00 daily. Medical Branch hydroCHLORO 2020-0 Yes [id number] 25mg Take 1 [facility] thiazide 25 7-17 tablet by ity of mg tablet 00:00: mouth [place] 00 daily. Medical Branch hydroCHLORO 2020-0 Yes [id number] 25mg Take 1 [facility] thiazide 25 7-17 tablet by ity of mg tablet 00:00: mouth [place] 00 daily. Medical Branch hydroCHLORO 2020-0 Yes [id number] 25mg Take 1 [facility] thiazide 25 7-17 tablet by ity of mg tablet 00:00: mouth [place] 00 daily. Medical Branch hydroCHLORO 2020-0 Yes [id number] 25mg Take 1 [facility] thiazide 25 7-17 tablet by ity of mg tablet 00:00: mouth [place] 00 daily. Medical Branch hydroCHLORO 2020-0 Yes [id number] 25mg Take 1 [facility] thiazide 25 7-17 tablet by ity of mg tablet 00:00: mouth [place] 00 daily. [facility] Branch hydroCHLORO 2020-0 Yes [id number] 25mg Take 1 [facility] thiazide 25 7-17 tablet by ity of mg tablet 00:00: mouth [place] 00 daily. [facility] Branch hydroCHLORO 2020-0 Yes [id number] 25mg Take 1 [facility] thiazide 25 7-17 tablet by ity of mg tablet 00:00: mouth [place] 00 daily. Medical Branch hydroCHLORO 2020-0 Yes [id number] 25mg Take 1 [facility] thiazide 25 7-17 tablet by ity of mg tablet 00:00: mouth [place] 00 daily. Medical Branch hydroCHLORO 2020-0 Yes [id number] 25mg Take 1 [facility] thiazide 25 7-17 tablet by ity of mg tablet 00:00: mouth [place] 00 daily. Medical Branch hydroCHLORO 2020-0 Yes [id number] 25mg Take 1 [facility] thiazide 25 7-17 tablet by ity of mg tablet 00:00: mouth [place] 00 daily. Medical Branch hydroCHLORO 2020-0 Yes [id number] 25mg Take 1 [facility] thiazide 25 7-17 tablet by ity of mg tablet 00:00: mouth [place] 00 daily. Medical Branch amLODIPine 2019-0 2020- No [id number] 10mg Take 1 [facility] 10 mg 7-17 12-08 tablet by ity of tablet 00:00: 00:00 mouth [place] 00 :00 daily. Medical Branch docusate 2020-0 Yes [id number] 100mg Take 1 [facility] 100 mg 6-12 capsule by ity of capsule 00:00: mouth [place] 00 daily. Medical Branch hydroCHLORO 2020-0 Yes [id number] 12.5mg Take 1 [facility] thiazide 6-12 capsule by ity o f 12.5 mg 00:00: mouth [place] capsule 00 daily. Medical Branch amLODIPine 2020-0 Yes [id number] 10mg Take 1 U nivers 10 mg 6-12 tablet by ity of tablet 00:00: mouth [place] 00 daily. Medical Branch docusate 2020-0 Yes [id number] 100mg Take 1 [facility] 100 mg 6-12 capsule by ity of capsule 00:00: mouth [place] 00 daily. Medical Branch hydroCHLORO 2020-0 Yes [id number] 12.5mg Take 1 [facility] thiazide 6-12 capsule by ity o f 12.5 mg 00:00: mouth [place] capsule 00 daily. Medical Branch amLODIPine 2020-0 Yes [id number] 10mg Take 1 U nivers 10 mg 6-12 tablet by ity of tablet 00:00: mouth [place] 00 daily. Medical Branch docusate 2020-0 Yes [id number] 100mg Take 1 [facility] 100 mg 6-12 capsule by ity of capsule 00:00: mouth [place] 00 daily. Medical Branch hydroCHLORO 2020-0 Yes [id number] 12.5mg Take 1 [facility] thiazide 6-12 capsule by ity o f 12.5 mg 00:00: mouth [place] capsule 00 daily. Medical Branch amLODIPine 2020-0 Yes [id number] 10mg Take 1 U nivers 10 mg 6-12 tablet by ity of tablet 00:00: mouth [place] 00 daily. Medical Branch docusate 2020-0 Yes [id number] 100mg Take 1 Un [facility] 100 mg 6-12 capsule by ity of capsule 00:00: mouth [place] 00 daily. Medical Branch hydroCHLORO 2020-0 Yes [id number] 12.5mg Take 1 [facility] thiazide 6-12 capsule by ity o f 12.5 mg 00:00: mouth [place] capsule 00 daily. Medical Branch amLODIPine 2020-0 Yes [id number] 10mg Take 1 U nivers 10 mg 6-12 tablet by ity of tablet 00:00: mouth [place] 00 daily. Medical Branch docusate 2020-0 Yes [id number] 100mg Take 1 [facility] 100 mg 6-12 capsule by ity of capsule 00:00: mouth [place] 00 daily. Medical Branch hydroCHLORO 2020-0 Yes [id number] 12.5mg Take 1 [facility] thiazide 6-12 capsule by ity o f 12.5 mg 00:00: mouth [place] capsule 00 daily. Medical Branch amLODIPine 2020-0 Yes [id number] 10mg Take 1 U nivers 10 mg 6-12 tablet by ity of tablet 00:00: mouth [place] 00 daily. Medical Branch docusate 2020-0 Yes [id number] 100mg Take 1 Un [facility] 100 mg 6-12 capsule by ity of capsule 00:00: mouth [place] 00 daily. Medical Branch hydroCHLORO 2020-0 Yes [id number] 12.5mg Take 1 [facility] thiazide 6-12 capsule by ity o f 12.5 mg 00:00: mouth [place] capsule 00 daily. Medical Branch amLODIPine 2020-0 Yes [id number] 10mg Take 1 U nivers 10 mg 6-12 tablet by ity of tablet 00:00: mouth [place] 00 daily. Medical Branch docusate 2020-0 Yes [id number] 100mg Take 1 Un [facility] 100 mg 6-12 capsule by ity of capsule 00:00: mouth [place] 00 daily. Medical Branch hydroCHLORO 2020-0 Yes [id number] 12.5mg Take 1 [facility] thiazide 6-12 capsule by ity o f 12.5 mg 00:00: mouth [place] capsule 00 daily. Medical Branch amLODIPine 2020-0 Yes [id number] 10mg Take 1 U nivers 10 mg 6-12 tablet by ity of tablet 00:00: mouth [place] 00 daily. Medical Branch docusate 2020-0 Yes [id number] 100mg Take 1 [facility] 100 mg 6-12 capsule by ity of capsule 00:00: mouth [place] 00 daily. Medical Branch hydroCHLORO 2020-0 Yes [id number] 12.5mg Take 1 [facility] thiazide 6-12 capsule by ity o f 12.5 mg 00:00: mouth [place] capsule 00 daily. Medical Branch amLODIPine 2020-0 Yes [id number] 10mg Take 1 U nivers 10 mg 6-12 tablet by ity of tablet 00:00: mouth [place] 00 daily. Medical Branch docusate 2020-0 Yes [id number] 100mg Take 1 [facility] 100 mg 6-12 capsule by ity of capsule 00:00: mouth [place] 00 daily. Medical Branch docusate 2020-0 Yes [id number] 100mg Take 1 [facility] 100 mg 6-12 capsule by ity of capsule 00:00: mouth [place] 00 daily. Medical Branch docusate 2020-0 Yes [id number] 100mg Take 1 [facility] 100 mg 6-12 capsule by ity of capsule 00:00: mouth [place] 00 daily. Medical Branch docusate 2020-0 Yes [id number] 100mg Take 1 [facility] 100 mg 6-12 capsule by ity of capsule 00:00: mouth [place] 00 daily. Medical Branch docusate 2020-0 Yes [id number] 100mg Take 1 [facility] 100 mg 6-12 capsule by ity of capsule 00:00: mouth [place] 00 daily. Medical Branch docusate 2020-0 Yes [id number] 100mg Take 1 [facility] 100 mg 6-12 capsule by ity of capsule 00:00: mouth [place] 00 daily. Medical Branch docusate 2020-0 Yes [id number] 100mg Take 1 [facility] 100 mg 6-12 capsule by ity of capsule 00:00: mouth [place] 00 daily. Medical Branch docusate 2020-0 Yes [id number] 100mg Take 1 [facility] 100 mg 6-12 capsule by ity of capsule 00:00: mouth [place] 00 daily. Medical Branch docusate 2020-0 Yes [id number] 100mg Take 1 [facility] 100 mg 6-12 capsule by ity of capsule 00:00: mouth [place] 00 daily. Medical Branch docusate 2020-0 Yes [id number] 100mg Take 1 [facility] 100 mg 6-12 capsule by ity of capsule 00:00: mouth [place] 00 daily. Medical Branch docusate 2020-0 Yes [id number] 100mg Take 1 [facility] 100 mg 6-12 capsule by ity of capsule 00:00: mouth [place] 00 daily. Medical Branch docusate 2020-0 Yes [id number] 100mg Take 1 [facility] 100 mg 6-12 capsule by ity of capsule 00:00: mouth [place] 00 daily. Medical Branch docusate 2020-0 Yes [id number] 100mg Take 1 [facility] 100 mg 6-12 capsule by ity of capsule 00:00: mouth [place] 00 daily. Medical Branch docusate 2020-0 Yes [id number] 100mg Take 1 [facility] 100 mg 6-12 capsule by ity of capsule 00:00: mouth [place] 00 daily. Medical Branch docusate 2020-0 Yes [id number] 100mg Take 1 [facility] 100 mg 6-12 capsule by ity of capsule 00:00: mouth [place] 00 daily. Medical Branch docusate 2020-0 Yes [id number] 100mg Take 1 [facility] 100 mg 6-12 capsule by ity of capsule 00:00: mouth [place] 00 daily. Medical Branch docusate 2020-0 Yes [id number] 100mg Take 1 [facility] 100 mg 6-12 capsule by ity of capsule 00:00: mouth [place] 00 daily. Medical Branch docusate 2020-0 Yes [id number] 100mg Take 1 [facility] 100 mg 6-12 capsule by ity of capsule 00:00: mouth [place] 00 daily. Medical Branch docusate 2020-0 Yes [id number] 100mg Take 1 [facility] 100 mg 6-12 capsule by ity of capsule 00:00: mouth [place] 00 daily. Medical Branch docusate 2020-0 Yes [id number] 100mg Take 1 [facility] 100 mg 6-12 capsule by ity of capsule 00:00: mouth [place] 00 daily. Medical Branch docusate 2020-0 Yes [id number] 100mg Take 1 [facility] 100 mg 6-12 capsule by ity of capsule 00:00: mouth [place] 00 daily. Medical Branch docusate 2020-0 Yes [id number] 100mg Take 1 [facility] 100 mg 6-12 capsule by ity of capsule 00:00: mouth [place] 00 daily. Medical Branch docusate 2020-0 Yes [id number] 100mg Take 1 [facility] 100 mg 6-12 capsule by ity of capsule 00:00: mouth [place] 00 daily. Medical Branch docusate 2020-0 Yes [id number] 100mg Take 1 [facility] 100 mg 6-12 capsule by ity of capsule 00:00: mouth [place] 00 daily. Medical Branch docusate 2020-0 Yes [id number] 100mg Take 1 [facility] 100 mg 6-12 capsule by ity of capsule 00:00: mouth [place] 00 daily. Medical Branch docusate 2020-0 Yes [id number] 100mg Take 1 [facility] 100 mg 6-12 capsule by ity of capsule 00:00: mouth [place] 00 daily. Medical Branch hydroCHLORO 2019-0 2020- No [id number] 12.5mg Take 1 [facility] thiazide 6-12 07-17 capsule by ity of 12.5 mg 00:00: 00:00 mouth [place] capsule 00 :00 daily. Medical Branch amLODIPine 2019-0 2020- No [id number] 10mg Take 1 [facility] 10 mg 6-12 07-16 tablet by ity of tablet 00:00: 00:00 mouth [place] 00 :00 daily. Medical Branch metFORMIN 2019-0 Yes 500mg Take 500 Uni vers 500 mg 24 6-11 mg by ity of hr tablet 17:50: mouth [place] 22 daily with Medical breakfast. Branch aspirin 81 2020-0 Yes 81mg Take 81 mg U nivers mg chewable 6-11 by mouth ity of tablet 17:50: daily. [place] [address] Medical Branch omeprazole 2020-0 Yes 20mg Take 20 mg U nivers 20 mg 6-11 by mouth ity of capsule 17:50: daily. [place] [address] Medical Branch tamsulosin 2020-0 Yes .4mg Take 0.4 Uni vers 0.4 mg 24 6-11 mg by ity of hr capsule 17:50: mouth [place] 22 daily. Medical Branch atorvastati 2020-0 Yes 5mg Take 5 mg U nivers n 10 mg 6-11 by mouth ity of tablet 17:50: at [place] [address] bedtime. Medical Branch FLUoxetine 2020-0 Yes 10mg Take 10 mg U nivers 10 mg 6-11 by mouth ity of capsule 17:50: daily. [place] [address] Medical Branch metFORMIN 2020-0 Yes 500mg Take 500 Uni vers 500 mg 24 6-11 mg by ity of hr tablet 17:50: mouth [place] 22 daily with Medical breakfast. Branch aspirin 81 2020-0 Yes 81mg Take 81 mg U nivers mg chewable 6-11 by mouth ity of tablet 17:50: daily. [place] [address] Medical Branch omeprazole 2020-0 Yes 20mg Take 20 mg U nivers 20 mg 6-11 by mouth ity of capsule 17:50: daily. [place] [address] Medical Branch tamsulosin 2020-0 Yes .4mg Take 0.4 Uni vers 0.4 mg 24 6-11 mg by ity of hr capsule 17:50: mouth [place] 22 daily. Medical Branch atorvastati 2020-0 Yes 5mg Take 5 mg U nivers n 10 mg 6-11 by mouth ity of tablet 17:50: at [place] 22 bedtime. Medical Branch FLUoxetine 2020-0 Yes 10mg Take 10 mg U nivers 10 mg 6-11 by mouth ity of capsule 17:50: daily. [place] [address] Medical Branch metFORMIN 2020-0 Yes 500mg Take 500 Uni vers 500 mg 24 6-11 mg by ity of hr tablet 17:50: mouth [place] 22 daily with Medical breakfast. Branch aspirin 81 2020-0 Yes 81mg Take 81 mg U nivers mg chewable 6-11 by mouth ity of tablet 17:50: daily. [place] [address] Medical Branch omeprazole 2020-0 Yes 20mg Take 20 mg U nivers 20 mg 6-11 by mouth ity of capsule 17:50: daily. [place] [address] Medical Branch tamsulosin 2020-0 Yes .4mg Take 0.4 Uni vers 0.4 mg 24 6-11 mg by ity of hr capsule 17:50: mouth [place] 22 daily. Medical Branch atorvastati 2020-0 Yes 5mg Take 5 mg U nivers n 10 mg 6-11 by mouth ity of tablet 17:50: at [place] 22 bedtime. Medical Branch FLUoxetine 2020-0 Yes 10mg Take 10 mg U nivers 10 mg 6-11 by mouth ity of capsule 17:50: daily. [place] [address] Medical Branch metFORMIN 2020-0 Yes 500mg Take 500 Uni vers 500 mg 24 6-11 mg by ity of hr tablet 17:50: mouth [place] 22 daily with Medical breakfast. Branch aspirin 81 2020-0 Yes 81mg Take 81 mg U nivers mg chewable 6-11 by mouth ity of tablet 17:50: daily. [place] [address] Medical Branch omeprazole 2020-0 Yes 20mg Take 20 mg U nivers 20 mg 6-11 by mouth ity of capsule 17:50: daily. [place] [address] Medical Branch tamsulosin 2020-0 Yes .4mg Take 0.4 Uni vers 0.4 mg 24 6-11 mg by ity of hr capsule 17:50: mouth [place] 22 daily. Medical Branch atorvastati 2020-0 Yes 5mg Take 5 mg U nivers n 10 mg 6-11 by mouth ity of tablet 17:50: at [place] 22 bedtime. Medical Branch FLUoxetine 2020-0 Yes 10mg Take 10 mg U nivers 10 mg 6-11 by mouth ity of capsule 17:50: daily. [place] [address] Medical Branch metFORMIN 2020-0 Yes 500mg Take 500 Uni vers 500 mg 24 6-11 mg by ity of hr tablet 17:50: mouth [place] 22 daily with Medical breakfast. Branch aspirin 81 2020-0 Yes 81mg Take 81 mg U nivers mg chewable 6-11 by mouth ity of tablet 17:50: daily. [place] [address] [facility] omeprazole 2020-0 Yes 20mg Take 20 mg U nivers 20 mg 6-11 by mouth ity of capsule 17:50: daily. [place] [address] [facility] tamsulosin 2020-0 Yes .4mg Take 0.4 Uni vers 0.4 mg 24 6-11 mg by ity of hr capsule 17:50: mouth [place] 22 daily. Medical Branch atorvastati 2020-0 Yes 5mg Take 5 mg U nivers n 10 mg 6-11 by mouth ity of tablet 17:50: at [place] 22 bedtime. Medical Branch FLUoxetine 2020-0 Yes 10mg Take 10 mg U nivers 10 mg 6-11 by mouth ity of capsule 17:50: daily. [place] [address] [facility] metFORMIN 2020-0 Yes 500mg Take 500 Uni vers 500 mg 24 6-11 mg by ity of hr tablet 17:50: mouth [place] 22 daily with Medical breakfast. Branch aspirin 81 2020-0 Yes 81mg Take 81 mg U nivers mg chewable 6-11 by mouth ity of tablet 17:50: daily. [place] [address] [facility] omeprazole 2020-0 Yes 20mg Take 20 mg U nivers 20 mg 6-11 by mouth ity of capsule 17:50: daily. [place] [address] [facility] tamsulosin 2020-0 Yes .4mg Take 0.4 Uni vers 0.4 mg 24 6-11 mg by ity of hr capsule 17:50: mouth [place] 22 daily. Medical Branch atorvastati 2020-0 Yes 5mg Take 5 mg U nivers n 10 mg 6-11 by mouth ity of tablet 17:50: at [place] 22 bedtime. Medical Branch FLUoxetine 2020-0 Yes 10mg Take 10 mg U nivers 10 mg 6-11 by mouth ity of capsule 17:50: daily. [place] [address] [facility] metFORMIN 2020-0 Yes 500mg Take 500 Uni vers 500 mg 24 6-11 mg by ity of hr tablet 17:50: mouth [place] 22 daily with Medical breakfast. Branch aspirin 81 2020-0 Yes 81mg Take 81 mg U nivers mg chewable 6-11 by mouth ity of tablet 17:50: daily. [place] [address] [facility] omeprazole 2020-0 Yes 20mg Take 20 mg U nivers 20 mg 6-11 by mouth ity of capsule 17:50: daily. [place] [address] [facility] tamsulosin 2020-0 Yes .4mg Take 0.4 Uni vers 0.4 mg 24 6-11 mg by ity of hr capsule 17:50: mouth [place] 22 daily. Medical Branch atorvastati 2020-0 Yes 5mg Take 5 mg U nivers n 10 mg 6-11 by mouth ity of tablet 17:50: at [place] 22 bedtime. Medical Branch FLUoxetine 2020-0 Yes 10mg Take 10 mg U nivers 10 mg 6-11 by mouth ity of capsule 17:50: daily. [place] [address] [facility] metFORMIN 2020-0 Yes 500mg Take 500 Uni vers 500 mg 24 6-11 mg by ity of hr tablet 17:50: mouth [place] 22 daily with Medical breakfast. Branch aspirin 81 2020-0 Yes 81mg Take 81 mg U nivers mg chewable 6-11 by mouth ity of tablet 17:50: daily. [place] [address] [facility] omeprazole 2020-0 Yes 20mg Take 20 mg U nivers 20 mg 6-11 by mouth ity of capsule 17:50: daily. [place] [address] [facility] tamsulosin 2020-0 Yes .4mg Take 0.4 Uni vers 0.4 mg 24 6-11 mg by ity of hr capsule 17:50: mouth [place] 22 daily. Medical Branch atorvastati 2020-0 Yes 5mg Take 5 mg U nivers n 10 mg 6-11 by mouth ity of tablet 17:50: at [place] 22 bedtime. Medical Branch FLUoxetine 2020-0 Yes 10mg Take 10 mg U nivers 10 mg 6-11 by mouth ity of capsule 17:50: daily. [place] [address] [facility] metFORMIN 2020-0 Yes 500mg Take 500 Uni vers 500 mg 24 6-11 mg by ity of hr tablet 17:50: mouth [place] 22 daily with Medical breakfast. Branch aspirin 81 2020-0 Yes 81mg Take 81 mg U nivers mg chewable 6-11 by mouth ity of tablet 17:50: daily. [place] [address] [facility] omeprazole 2020-0 Yes 20mg Take 20 mg U nivers 20 mg 6-11 by mouth ity of capsule 17:50: daily. [place] [address] [facility] tamsulosin 2020-0 Yes .4mg Take 0.4 Uni vers 0.4 mg 24 6-11 mg by ity of hr capsule 17:50: mouth [place] 22 daily. Medical Branch atorvastati 2020-0 Yes 5mg Take 5 mg U nivers n 10 mg 6-11 by mouth ity of tablet 17:50: at [place] [address] bedtime. Medical Branch FLUoxetine 2020-0 Yes 10mg Take 10 mg U nivers 10 mg 6-11 by mouth ity of capsule 17:50: daily. [place] [address] [facility] metFORMIN 2020-0 Yes 500mg Take 500 Uni vers 500 mg 24 6-11 mg by ity of hr tablet 17:50: mouth [place] 22 daily with Medical breakfast. Branch aspirin 81 2020-0 Yes 81mg Take 81 mg U nivers mg chewable 6-11 by mouth ity of tablet 17:50: daily. [place] [address] [facility] omeprazole 2020-0 Yes 20mg Take 20 mg U nivers 20 mg 6-11 by mouth ity of capsule 17:50: daily. [place] [address] [facility] tamsulosin 2020-0 Yes .4mg Take 0.4 Uni vers 0.4 mg 24 6-11 mg by ity of hr capsule 17:50: mouth [place] 22 daily. Medical Branch atorvastati 2020-0 Yes 5mg Take 5 mg U nivers n 10 mg 6-11 by mouth ity of tablet 17:50: at [place] [address] bedtime. Medical Branch FLUoxetine 2020-0 Yes 10mg Take 10 mg U nivers 10 mg 6-11 by mouth ity of capsule 17:50: daily. [place] [address] [facility] metFORMIN 2020-0 Yes 500mg Take 500 Uni vers 500 mg 24 6-11 mg by ity of hr tablet 17:50: mouth [place] 22 daily with Medical breakfast. Branch aspirin 81 2020-0 Yes 81mg Take 81 mg U nivers mg chewable 6-11 by mouth ity of tablet 17:50: daily. [place] [address] [facility] omeprazole 2020-0 Yes 20mg Take 20 mg U nivers 20 mg 6-11 by mouth ity of capsule 17:50: daily. [place] [address] [facility] tamsulosin 2020-0 Yes .4mg Take 0.4 Uni vers 0.4 mg 24 6-11 mg by ity of hr capsule 17:50: mouth [place] 22 daily. Medical Branch atorvastati 2020-0 Yes 5mg Take 5 mg U nivers n 10 mg 6-11 by mouth ity of tablet 17:50: at [place] 22 bedtime. Medical Branch FLUoxetine 2020-0 Yes 10mg Take 10 mg U nivers 10 mg 6-11 by mouth ity of capsule 17:50: daily. [place] [address] [facility] metFORMIN 2020-0 Yes 500mg Take 500 Uni vers 500 mg 24 6-11 mg by ity of hr tablet 17:50: mouth [place] 22 daily with Medical breakfast. Branch aspirin 81 2020-0 Yes 81mg Take 81 mg U nivers mg chewable 6-11 by mouth ity of tablet 17:50: daily. [place] [address] [facility] omeprazole 2020-0 Yes 20mg Take 20 mg U nivers 20 mg 6-11 by mouth ity of capsule 17:50: daily. [place] [address] [facility] tamsulosin 2020-0 Yes .4mg Take 0.4 Uni vers 0.4 mg 24 6-11 mg by ity of hr capsule 17:50: mouth [place] 22 daily. Medical Branch atorvastati 2020-0 Yes 5mg Take 5 mg U nivers n 10 mg 6-11 by mouth ity of tablet 17:50: at [place] 22 bedtime. Medical Branch FLUoxetine 2020-0 Yes 10mg Take 10 mg U nivers 10 mg 6-11 by mouth ity of capsule 17:50: daily. [place] [address] Medical [place] metFORMIN 2020-0 Yes 500mg Take 500 Uni vers 500 mg 24 6-11 mg by ity of hr tablet 17:50: mouth [place] 22 daily with Medical breakfast. Branch aspirin 81 2020-0 Yes 81mg Take 81 mg U nivers mg chewable 6-11 by mouth ity of tablet 17:50: daily. [place] [address] [facility] omeprazole 2020-0 Yes 20mg Take 20 mg U nivers 20 mg 6-11 by mouth ity of capsule 17:50: daily. [place] [address] [facility] tamsulosin 2020-0 Yes .4mg Take 0.4 Uni vers 0.4 mg 24 6-11 mg by ity of hr capsule 17:50: mouth [place] 22 daily. Medical Branch atorvastati 2020-0 Yes 5mg Take 5 mg U nivers n 10 mg 6-11 by mouth ity of tablet 17:50: at [place] 22 bedtime. Medical Branch FLUoxetine 2020-0 Yes 10mg Take 10 mg U nivers 10 mg 6-11 by mouth ity of capsule 17:50: daily. [place] [address] [facility] metFORMIN 2020-0 Yes 500mg Take 500 Uni vers 500 mg 24 6-11 mg by ity of hr tablet 17:50: mouth [place] 22 daily with Medical breakfast. Branch aspirin 81 2020-0 Yes 81mg Take 81 mg U nivers mg chewable 6-11 by mouth ity of tablet 17:50: daily. [place] [address] [facility] omeprazole 2020-0 Yes 20mg Take 20 mg U nivers 20 mg 6-11 by mouth ity of capsule 17:50: daily. [place] [address] [facility] tamsulosin 2020-0 Yes .4mg Take 0.4 Uni vers 0.4 mg 24 6-11 mg by ity of hr capsule 17:50: mouth [place] 22 daily. Medical Branch atorvastati 2020-0 Yes 5mg Take 5 mg U nivers n 10 mg 6-11 by mouth ity of tablet 17:50: at [place] 22 bedtime. Medical Branch FLUoxetine 2020-0 Yes 10mg Take 10 mg U nivers 10 mg 6-11 by mouth ity of capsule 17:50: daily. [place] [address] [facility] metFORMIN 2020-0 Yes 500mg Take 500 Uni vers 500 mg 24 6-11 mg by ity of hr tablet 17:50: mouth [place] 22 daily with Medical breakfast. Branch aspirin 81 2020-0 Yes 81mg Take 81 mg U nivers mg chewable 6-11 by mouth ity of tablet 17:50: daily. [place] [address] [facility] omeprazole 2020-0 Yes 20mg Take 20 mg U nivers 20 mg 6-11 by mouth ity of capsule 17:50: daily. [place] [address] [facility] tamsulosin 2020-0 Yes .4mg Take 0.4 Uni vers 0.4 mg 24 6-11 mg by ity of hr capsule 17:50: mouth [place] [address] daily. Medical Branch atorvastati 2020-0 Yes 5mg Take 5 mg U nivers n 10 mg 6-11 by mouth ity of tablet 17:50: at [place] [address] bedtime. Medical Branch FLUoxetine 2020-0 Yes 10mg Take 10 mg U nivers 10 mg 6-11 by mouth ity of capsule 17:50: daily. [place] [address] [facility] metFORMIN 2020-0 Yes 500mg Take 500 Uni vers 500 mg 24 6-11 mg by ity of hr tablet 17:50: mouth [place] [address] daily with Medical breakfast. Branch aspirin 81 2020-0 Yes 81mg Take 81 mg U nivers mg chewable 6-11 by mouth ity of tablet 17:50: daily. [place] [address] [facility] omeprazole 2020-0 Yes 20mg Take 20 mg U nivers 20 mg 6-11 by mouth ity of capsule 17:50: daily. [place] [address] [facility] tamsulosin 2020-0 Yes .4mg Take 0.4 Uni vers 0.4 mg 24 6-11 mg by ity of hr capsule 17:50: mouth [place] [address] daily. Medical Branch atorvastati 2020-0 Yes 5mg Take 5 mg U nivers n 10 mg 6-11 by mouth ity of tablet 17:50: at [place] [address] bedtime. Medical Branch FLUoxetine 2020-0 Yes 10mg Take 10 mg U nivers 10 mg 6-11 by mouth ity of capsule 17:50: daily. [place] [address] [facility] hydroCHLORO 2020-0 2020- No 25mg Take 25 mg [facility] thiazide 25 6-11 06-11 by mouth ity of mg tablet 15:13: 00:00 daily. 33 :00 Medical Branch lisinopril 2020-0 2020- No 20mg Take 20 mg [facility] 20 mg 6-11 06-11 by mouth ity of tablet 15:13: 00:00 daily. 33 :00 Medical Branch hydroCHLORO 2020-0 Yes 12.5mg 12.5 mg, [facility] thiazide 6-11 Oral, ity of (ESIDRIX) 14:00: DAILY, First dose Medica l 12.5 mg on [place] [facility] 02/17/20 at 0900, Until Discontinu ed, Routine amLODIPine 2020-0 Yes 10mg 10 mg, Unive rs (NORVASC) 6-11 Oral, ity of tablet 10 14:00: DAILY, [place] mg 00 First dose Medical on [place] [facility] 02/17/20 at 0900, Until Discontinu ed, Routine FLUoxetine 2020-0 Yes 10mg 10 mg, Unive rs (PROZAC) 6-11 Oral, ity of capsule 10 14:00: DAILY, [place] mg 00 First dose Medical on [place] [facility] 02/17/20 at 0900, Until Discontinu ed, Routine insulin 2020-0 Yes 45U 45 Units, Unive rs detemir 6-11 Subcutaneo ity of U-100 02:00: us, QHS, [place] (LEVEMIR 00 First dose Medic al U-100 on Fri Branch INSULIN) 02/16/20 at injection 2100, 45 Units Until Discontinu ed, Routine Sliding 2020-0 Yes Subcutaneo Univ ers Scale 6-11 us, Q4H, ity of Insulin - 01:00: First dose [place] Aspart 00 on Fri Medical (NOVOLOG) + 02/16/20 at Br anch Fsbg 2000, Testing Until Discontinu ed, Routine acetaminoph 2020-0 Yes [id number] 1000mg Take 2 Univers en 500 mg 6-11 tablets by ity of tablet 00:00: mouth [place] 00 every 8 Medical (eight) Branch hours as needed for Pain. acetaminoph 2020-0 Yes [id number] 1000mg Take 2 Univers en 500 mg 6-11 tablets by ity of tablet 00:00: mouth [place] 00 every 8 Medical (eight) Branch hours as needed for Pain. methocarbam 2020-0 Yes [id number] 500mg Take 1 Univers ol 500 mg 6-11 tablet by ity o f tablet 00:00: mouth 4 [place] 00 (four) Medical times Branch daily as needed (muscle spasms). acetaminoph 2020-0 Yes [id number] 1000mg Take 2 Univers en 500 mg 6-11 tablets by ity of tablet 00:00: mouth [place] 00 every 8 Medical (eight) Branch hours as needed for Pain. methocarbam 2020-0 Yes [id number] 500mg Take 1 Univers ol 500 mg 6-11 tablet by ity o f tablet 00:00: mouth 4 00 (four) Medical times Branch daily as needed (muscle spasms). acetaminoph 2020-0 Yes [id number] 1000mg Take 2 [facility] en 500 mg 6-11 tablets by ity of tablet 00:00: mouth [place] 00 every 8 Medical (eight) Branch hours as needed for Pain. methocarbam 2020-0 Yes [id number] 500mg Take 1 Univers ol 500 mg 6-11 tablet by ity o f tablet 00:00: mouth 00 (four) Medical times Branch daily as needed (muscle spasms). acetaminoph 2020-0 Yes [id number] 1000mg Take 2 [facility] en 500 mg 6-11 tablets by ity of tablet 00:00: mouth [place] 00 every 8 Medical (eight) Branch hours as needed for Pain. methocarbam 2020-0 Yes [id number] 500mg Take 1 Univers ol 500 mg 6-11 tablet by ity o f tablet 00:00: mouth (four) Medical times Branch daily as needed (muscle spasms). acetaminoph 2020-0 Yes [id number] 1000mg Take 2 [facility] en 500 mg 6-11 tablets by ity of tablet 00:00: mouth [place] 00 every 8 Medical (eight) Branch hours as needed for Pain. methocarbam 2020-0 Yes [id number] 500mg Take 1 [facility] ol 500 mg 6-11 tablet by ity o f tablet 00:00: mouth (four) Medical times Branch daily as needed (muscle spasms). acetaminoph 2020-0 Yes [id number] 1000mg Take 2 Univers en 500 mg 6-11 tablets by ity of tablet 00:00: mouth [place] 00 every 8 Medical (eight) Branch hours as needed for Pain. methocarbam 2020-0 Yes [id number] 500mg Take 1 Univers ol 500 mg 6-11 tablet by ity o f tablet 00:00: mouth (four) Medical times Branch daily as needed (muscle spasms). acetaminoph 2020-0 Yes [id number] 1000mg Take 2 Univers en 500 mg 6-11 tablets by ity of tablet 00:00: mouth [place] 00 every 8 Medical (eight) Branch hours as needed for Pain. methocarbam 2020-0 Yes [id number] 500mg Take 1 Univers ol 500 mg 6-11 tablet by ity o f tablet 00:00: mouth 4 [place] 00 (four) Medical times Branch daily as needed (muscle spasms). acetaminoph 2020-0 Yes [id number] 1000mg Take 2 Univers en 500 mg 6-11 tablets by ity of tablet 00:00: mouth [place] 00 every 8 Medical (eight) Branch hours as needed for Pain. methocarbam 2020-0 Yes [id number] 500mg Take 1 Univers ol 500 mg 6-11 tablet by ity o f tablet 00:00: mouth (four) Medical times Branch daily as needed (muscle spasms). acetaminoph 2020-0 Yes [id number] 1000mg Take 2 Univers en 500 mg 6-11 tablets by ity of tablet 00:00: mouth 00 every 8 Medical (eight) Branch hours as needed for Pain. methocarbam 2020-0 Yes [id number] 500mg Take 1 Univers ol 500 mg 6-11 tablet by ity o f tablet 00:00: mouth (four) Medical times Branch daily as needed (muscle spasms). acetaminoph 2020-0 Yes [id number] 1000mg Take 2 Univers en 500 mg 6-11 tablets by ity of tablet 00:00: mouth [place] 00 every 8 Medical (eight) Branch hours as needed for Pain. methocarbam 2020-0 Yes [id number] 500mg Take 1 Univers ol 500 mg 6-11 tablet by ity o f tablet 00:00: mouth (four) Medical times Branch daily as needed (muscle spasms). acetaminoph 2020-0 Yes [id number] 1000mg Take 2 Univers en 500 mg 6-11 tablets by ity of tablet 00:00: mouth 00 every 8 Medical (eight) Branch hours as needed for Pain. methocarbam 2020-0 Yes [id number] 500mg Take 1 Univers ol 500 mg 6-11 tablet by ity o f tablet 00:00: mouth (four) Medical times Branch daily as needed (muscle spasms). acetaminoph 2020-0 Yes [id number] 1000mg Take 2 Univers en 500 mg 6-11 tablets by ity of tablet 00:00: mouth [place] 00 every 8 Medical (eight) Branch hours as needed for Pain. methocarbam 2020-0 Yes [id number] 500mg Take 1 Univers ol 500 mg 6-11 tablet by ity o f tablet 00:00: mouth (four) Medical times Branch daily as needed (muscle spasms). acetaminoph 2020-0 Yes [id number] 1000mg Take 2 Univers en 500 mg 6-11 tablets by ity of tablet 00:00: mouth [place] 00 every 8 Medical (eight) Branch hours as needed for Pain. methocarbam 2020-0 Yes [id number] 500mg Take 1 Univers ol 500 mg 6-11 tablet by ity o f tablet 00:00: mouth 4 00 (four) Medical times Branch daily as needed (muscle spasms). acetaminoph 2020-0 Yes [id number] 1000mg Take 2 Univers en 500 mg 6-11 tablets by ity of tablet 00:00: mouth [place] 00 every 8 Medical (eight) Branch hours as needed for Pain. methocarbam 2020-0 Yes [id number] 500mg Take 1 Univers ol 500 mg 6-11 tablet by ity o f tablet 00:00: mouth (four) Medical times Branch daily as needed (muscle spasms). acetaminoph 2020-0 Yes [id number] 1000mg Take 2 Univers en 500 mg 6-11 tablets by ity of tablet 00:00: mouth [place] 00 every 8 Medical (eight) Branch hours as needed for Pain. methocarbam 2020-0 Yes [id number] 500mg Take 1 Univers ol 500 mg 6-11 tablet by ity o f tablet 00:00: mouth 00 (four) Medical times Branch daily as needed (muscle spasms). acetaminoph 2020-0 Yes [id number] 1000mg Take 2 Univers en 500 mg 6-11 tablets by ity of tablet 00:00: mouth [place] 00 every 8 Medical (eight) Branch hours as needed for Pain. methocarbam 2020-0 Yes [id number] 500mg Take 1 Univers ol 500 mg 6-11 tablet by ity o f tablet 00:00: mouth (four) Medical times Branch daily as needed (muscle spasms). acetaminoph 2020-0 Yes [id number] 1000mg Take 2 Univers en 500 mg 6-11 tablets by ity of tablet 00:00: mouth [place] 00 every 8 Medical (eight) Branch hours as needed for Pain. methocarbam 2020-0 Yes [id number] 500mg Take 1 Univers ol 500 mg 6-11 tablet by ity o f tablet 00:00: mouth 4 00 (four) Medical times Branch daily as needed (muscle spasms). acetaminoph 2020-0 Yes [id number] 1000mg Take 2 Univers en 500 mg 6-11 tablets by ity of tablet 00:00: mouth [place] 00 every 8 Medical (eight) Branch hours as needed for Pain. methocarbam 2020-0 Yes [id number] 500mg Take 1 [facility] ol 500 mg 6-11 tablet by ity o f tablet 00:00: mouth 4 [place] 00 (four) Medical times Branch daily as needed (muscle spasms). acetaminoph 2020-0 Yes [id number] 1000mg Take 2 Univers en 500 mg 6-11 tablets by ity of tablet 00:00: mouth [place] 00 every 8 Medical (eight) Branch hours as needed for Pain. methocarbam 2020-0 Yes [id number] 500mg Take 1 Univers ol 500 mg 6-11 tablet by ity o f tablet 00:00: mouth 00 (four) Medical times Branch daily as needed (muscle spasms). acetaminoph 2020-0 Yes [id number] 1000mg Take 2 Univers en 500 mg 6-11 tablets by ity of tablet 00:00: mouth [place] 00 every 8 Medical (eight) Branch hours as needed for Pain. methocarbam 2020-0 Yes [id number] 500mg Take 1 [facility] ol 500 mg 6-11 tablet by ity o f tablet 00:00: mouth 00 (four) Medical times Branch daily as needed (muscle spasms). acetaminoph 2020-0 Yes [id number] 1000mg Take 2 [facility] en 500 mg 6-11 tablets by ity of tablet 00:00: mouth [place] 00 every 8 Medical (eight) Branch hours as needed for Pain. methocarbam 2020-0 Yes [id number] 500mg Take 1 [facility] ol 500 mg 6-11 tablet by ity o f tablet 00:00: mouth 4 00 (four) Medical times Branch daily as needed (muscle spasms). acetaminoph 2020-0 Yes [id number] 1000mg Take 2 [facility] en 500 mg 6-11 tablets by ity of tablet 00:00: mouth [place] 00 every 8 Medical (eight) Branch hours as needed for Pain. methocarbam 2020-0 Yes [id number] 500mg Take 1 [facility] ol 500 mg 6-11 tablet by ity o f tablet 00:00: mouth 4 00 (four) Medical times Branch daily as needed (muscle spasms). acetaminoph 2020-0 Yes [id number] 1000mg Take 2 [facility] en 500 mg 6-11 tablets by ity of tablet 00:00: mouth [place] 00 every 8 Medical (eight) Branch hours as needed for Pain. methocarbam 2020-0 Yes [id number] 500mg Take 1 [facility] ol 500 mg 6-11 tablet by ity o f tablet 00:00: mouth 4 [place] 00 (four) Medical times Branch daily as needed (muscle spasms). acetaminoph 2020-0 Yes [id number] 1000mg Take 2 Univers en 500 mg 6-11 tablets by ity of tablet 00:00: mouth [place] 00 every 8 Medical (eight) Branch hours as needed for Pain. methocarbam 2020-0 Yes [id number] 500mg Take 1 [facility] ol 500 mg 6-11 tablet by ity o f tablet 00:00: mouth 4 00 (four) Medical times Branch daily as needed (muscle spasms). acetaminoph 2020-0 Yes [id number] 1000mg Take 2 [facility] en 500 mg 6-11 tablets by ity of tablet 00:00: mouth [place] 00 every 8 Medical (eight) Branch hours as needed for Pain. methocarbam 2020-0 Yes [id number] 500mg Take 1 [facility] ol 500 mg 6-11 tablet by ity o f tablet 00:00: mouth 00 (four) Medical times Branch daily as needed (muscle spasms). acetaminoph 2020-0 Yes [id number] 1000mg Take 2 [facility] en 500 mg 6-11 tablets by ity of tablet 00:00: mouth [place] 00 every 8 Medical (eight) Branch hours as needed for Pain. methocarbam 2020-0 Yes [id number] 500mg Take 1 [facility] ol 500 mg 6-11 tablet by ity o f tablet 00:00: mouth 00 (four) Medical times Branch daily as needed (muscle spasms). acetaminoph 2020-0 Yes [id number] 1000mg Take 2 [facility] en 500 mg 6-11 tablets by ity of tablet 00:00: mouth [place] 00 every 8 Medical (eight) Branch hours as needed for Pain. methocarbam 2020-0 Yes [id number] 500mg Take 1 [facility] ol 500 mg 6-11 tablet by ity o f tablet 00:00: mouth 4 [place] 00 (four) Medical times Branch daily as needed (muscle spasms). acetaminoph 2020-0 Yes [id number] 1000mg Take 2 [facility] en 500 mg 6-11 tablets by ity of tablet 00:00: mouth [place] 00 every 8 Medical (eight) Branch hours as needed for Pain. methocarbam 2020-0 Yes [id number] 500mg Take 1 [facility] ol 500 mg 6-11 tablet by ity o f tablet 00:00: mouth 4 (four) Medical times Branch daily as needed (muscle spasms). acetaminoph 2020-0 Yes [id number] 1000mg Take 2 [facility] en 500 mg 6-11 tablets by ity of tablet 00:00: mouth [place] 00 every 8 Medical (eight) Branch hours as needed for Pain. methocarbam 2020-0 Yes [id number] 500mg Take 1 [facility] ol 500 mg 6-11 tablet by ity o f tablet 00:00: mouth (four) Medical times Branch daily as needed (muscle spasms). acetaminoph 2020-0 Yes [id number] 1000mg Take 2 [facility] en 500 mg 6-11 tablets by ity of tablet 00:00: mouth [place] 00 every 8 Medical (eight) Branch hours as needed for Pain. methocarbam 2020-0 Yes [id number] 500mg Take 1 [facility] ol 500 mg 6-11 tablet by ity o f tablet 00:00: mouth (four) Medical times Branch daily as needed (muscle spasms). acetaminoph 2020-0 Yes [id number] 1000mg Take 2 [facility] en 500 mg 6-11 tablets by ity of tablet 00:00: mouth [place] 00 every 8 Medical (eight) Branch hours as needed for Pain. methocarbam 2020-0 Yes [id number] 500mg Take 1 [facility] ol 500 mg 6-11 tablet by ity o f tablet 00:00: mouth (four) Medical times Branch daily as needed (muscle spasms). acetaminoph 2020-0 Yes [id number] 1000mg Take 2 [facility] en 500 mg 6-11 tablets by ity of tablet 00:00: mouth [place] 00 every 8 Medical (eight) Branch hours as needed for Pain. acetaminoph 2020-0 Yes [id number] 1000mg Take 2 [facility] en 500 mg 6-11 tablets by ity of tablet 00:00: mouth [place] 00 every 8 Medical (eight) Branch hours as needed for Pain. methocarbam 2020-0 2021- No [id number] 500mg Take 1 [facility] ol 500 mg 6-11 07- tablet by ity of tablet 00:00: 00:00 mouth 4 [place] 00 :00 (four) Medical times Branch daily as needed (muscle spasms). methocarbam 2019-2020- No [id number] 500mg Take 1 [facility] ol 500 mg 02-16 tablet by ity of tablet 00:00: 00:00 mouth 4 [place] 00 :00 (four) Medical times Branch daily as needed (muscle spasms). magnesium 2019-2019- No 30mL 30 mL, Unive rs hydroxide 02-15 Oral, ity of (MILK OF 23:00: 00:32 ONCE, 1 [place] MAGNESIA) 00 :00 dose, Fri Medic al 400 mg/5 mL 02/16/20 at [facility] anch suspension 1800, 30 mL Routine bisacodyL Yes 10mg 10 mg, Univer s (DULCOLAX) 02-15 Rectal, ity of suppository 21:30: BID, First [place] 10 mg 00 dose on Medical Fri Branch 02/16/20 at 1630, Until Discontinu ed, Routine Sliding 2019- No Subcutaneo Uni vers Scale 02-15 us, Q4H, ity of Insulin - 17:00: 21:27 First dose [place] Aspart 00 :26 on Fri Medical (NOVOLOG) + 02/16/20 at Br anch Fsbg 1200, Testing Until Discontinu ed, Routine Polyethylen 2019- Yes 17g 17 g, Unive rs e Glycol 10 Oral, BID, ity o f 3350 13:15: First dose [place] (MIRALAX) 00 fri Medical powder 17 g 02/16/20 at [facility] 0815, Until Discontinu ed, Routine D5W 0.45% 2019- No IV Univers NaCl 02-15 Infusion, ity of (1/2NS) 1 L 11:00: 12:13 at 20 [place] + KCL 20 00 :20 mL/hr, Medical mEq CONTINUOUS Branch , Starting Fri02/16/20 at 0600, Until Fri02/16/20 at 0713, Routine amLODIPine 2019-2019- No 5mg 5 mg, Unive rs (NORVASC) 02-14 Oral, ity of tablet 5 mg 14:00: 11:43 DAILY, [place] 00 :37 First dose Medical on Fri Branch 02/15/20 at 0900, Until Discontinu ed, Routine D5W 0.45% 2020-0 2020- No IV Univers NaCl 02-14 06-10 Infusion, ity of (1/2NS) 1 L 12:45: 10:48 at 100 [place] + KCL 20 00 :43 mL/hr, Medical mEq CONTINUOUS Branch , Starting Fri02/15/20 at 0745, Until Fri02/16/20 at 0548, Routine lactated 2020-0 2020- No 500mL at 999 Unive rs ringers IV 02-13 06-08 mL/hr, 500 it y of infusion 16:30: 16:08 mL, [place] 500 mL 00 :00 Intravenou Medical s, ONCE, 1 Branch dose, Fri02/14/20 at 1130, Routine tamsulosin 2020-0 Yes .4mg 0.4 mg, Univ ers (FLOMAX) 6-08 Oral, ity of capsule 0.4 14:00: DAILY, [place] mg 00 First dose Medical on Fri [place] 02/14/20 at 0900, Until Discontinu ed, Routine omeprazole 2020-0 Yes 20mg 20 mg, Unive rs (PRILOSEC) - Oral, ity of capsule 20 14:00: DAILY, [place] mg 00 First dose Medical on Fri [place] 02/14/20 at 0900, Until Discontinu ed, Routine aspirin 2020-0 Yes 81mg 81 mg, Univers chewable 02-13 Oral, ity of tablet 81 14:00: DAILY, [place] mg 00 First dose Medical on Fri [place] 02/14/20 at 0900, Until Discontinu ed, Routine lactated 2020-0 2020- No 500mL at 999 Unive rs ringers IV 02-13 06-08 mL/hr, 500 it y of infusion 03:15: 02:09 mL, [place] 500 mL 00 :00 Intravenou Medical s, ONCE, 1 Branch dose, [place] 02/13/20 at 2215, Routine atorvastati 2020-0 Yes 5mg 5 mg, Unive rs n (LIPITOR) 6-08 Oral, QHS, it y of tablet 5 mg 02:00: First dose [place] 00 on [facility] 02/13/20 at Branch 2100, Until Discontinu ed, Routine lactated 2020-0 2020- No 1000mL at 999 Univ ers ringers IV 6- 06-07 mL/hr, ity of infusion 19:15: 18:24 1,000 mL, [place] 1,000 mL 00 :00 Intravenou Medic al s, ONCE, 1 Branch dose, [place] 02/13/20 at 1415, Routine bisacodyL 2019-0 2020- No 10mg 10 mg, Unive rs (DULCOLAX) 02-12 06-07 Rectal, ity o f suppository 19:15: 19:44 ONCE NOW, [place] 10 mg 00 :00 1 dose, [facility] 02/13/20 Branch at 1415, Routine ondansetron 2019-0 Yes 4mg 4 mg, Slow Univers (ZOFRAN 02-12 IV Push, ity of (PF)) 15:36: Q6HPRN, [place] injection 4 56 Starting Medi arely mg [place] 02/13/20 Branch at 1036, Until Discontinu ed, Routine, Nausea and Vomiting (N/V) docusate 2020-0 Yes 100mg 100 mg, Unive rs (COLACE) 02-11 Oral, ity of capsule 100 14:00: DAILY, [place] 00 First [place] Medical [place] Sat [place] 02/12/20 at 0900, Until Discontinu ed, Routine methocarbam 2019-0 Yes 500mg 500 mg, Un karla ol 06 Oral, QID, ity of (ROBAXIN) 01:00: [place] tablet 500 00 on Fri Medical mg 02/11/20 at Branch 2000, Until Discontinu ed, Routine gabapentin 2019-0 2020- No 100mg 100 mg, Un karla (NEURONTIN) 02-11 06-08 Oral, TID, i ty of capsule 100 01:00: 13:29 First dose [place] mg 00 :41 on Fri Medical 02/11/20 at Branch 2000, Until Discontinu ed, Routine morpHINE 30 2020-0 2020- No Unive rs mg/30 mL 02-10 06-07 ity of (fixed 23:15: 18:59 [place] dose) [employer] 00 :51 Medical injection [place] acetaminoph 2020-0 Yes 1000mg 1,000 mg, Univers en 05 Oral, Q6H, ity of (TYLENOL) 23:00: [place] tablet 00 on Fri Medical 1,000 mg 02/11/20 at Branch 1800, Until Discontinu ed, Routine Sliding 2019- No Subcutaneo Uni vers Scale 02-10 06 us, TID ity of Insulin - 22:00: 13:15 MEALS+HS, [place] Aspart 00 :25 First dose Medical (NOVOLOG) + on Fri Branch [facility] 02/11/20 at Testing 1700, Until Discontinu ed, Routine celecoxib 2019- No 100mg 100 mg, Uni vers (CELEBREX) 02-10 Oral, BID ity of capsule 100 22:00: 18:06 MEALS, [place] mg 00 :55 First dose Medical on Fri Branch 02/11/20 at 1700, Until Discontinu ed, Routine FENTanyl PF 2019- No 100ug 100 mcg, Univers (SUBLIMAZE 02-10 Slow IV ity o f (PF)) 21:45: 20:31 Push, [place] injection 00 :00 ONCE, 1 Medical 100 mcg dose, Fri Branch 02/11/20 at 1645, STAT FENTanyl PF No 75ug 75 mcg, Un karla (SUBLIMAZE 02-10 Slow IV ity o f (PF)) 19:00: 17:52 Push, [place] injection 00 :00 ONCE, 1 Medical 75 mcg dose, Fri Branch 02/11/20 at 1400, STAT FENTanyl PF 2019- No 75ug 75 mcg, Un karla (SUBLIMAZE 02-10 Slow IV ity o f (PF)) 18:45: 17:37 Push, [place] injection 00 :00 ONCE, 1 Medical 75 mcg dose, Fri Branch 02/11/20 at 1345, STAT ceFAZolin No 1000mg 1,000 mg, Univers (ANCEF) 02-10 IV ity of 1,000 mg in 18:45: 18:06 Piggyback, [place] NaCl 0.9% 00 :00 ONCE, 1 Medical (NS) 50 mL dose, Fri Bran ch MINI-BAG 02/11/20 at 1345, 50 mL
Reas on for Anti-Infec tive: Surgical Prophylaxi s
Surgi arely Prophylaxi s: Cardiothor acic
Du ration of therapy: within 24 hours of surgery ondansetron 2019- No 4mg 4 mg, Slow Univers (ZOFRAN 6-05 06-05 IV Push, ity of (PF)) 18:15: 17:05 ONCE, 1 [place] injection 4 00 :00 dose, Fri Med ical mg 02/11/20 at Branch 1315, DANNY FENTanyl PF No 75ug 75 mcg, Un karla (SUBLIMAZE 02-10 Slow IV ity o f (PF)) 18:15: 17:04 Push, [place] injection 00 :00 ONCE, 1 Medical 75 mcg dose, Fri Branch 02/11/20 at 1315, Routine iohexol 2019- No 120mL 120 mL, Unive rs (OMNIPAQUE 02-10 Intravenou it y of 350 17:45: 17:32 s, ONCE, 1 [place] BULK-150 00 :00 dose, Fri Medica l mL) 02/11/20 at [place] injection 1245, 120 mL Routine contrast No Intravenou Un karla previously 02-10 s, ONCE, 1 it y of administere 17:45: 17:32 dose, Fri [place] d 0 mL 00 :00 02/11/20 at [facility] [address] [place] [address] Routine Immunizations Ordered Filled Immunization Date Status Comments [facility] e Immunization Name Name SARS-COV-2 COVID-19 2020-11-14 Completed Unive rsity of PFIZER VACCINE 00:00:00 [facility] SARS-COV-2 COVID-19 2020-11-14 Completed Unive rsity of PFIZER VACCINE 00:00:00 [facility] SARS-COV-2 COVID-19 2020-11-14 Completed Unive rsity of PFIZER VACCINE 00:00:00 [facility] SARS-COV-2 COVID-19 2020-11-14 Completed Unive rsity of PFIZER VACCINE 00:00:00 [facility] SARS-COV-2 COVID-19 2020-11-14 Completed Unive rsity of PFIZER VACCINE 00:00:00 [facility] SARS-COV-2 COVID-19 2020-11-14 Completed Unive rsity of PFIZER VACCINE 00:00:00 [facility] SARS-COV-2 COVID-19 2020-11-14 Completed Unive rsity of PFIZER VACCINE 00:00:00 [place] Medi arely Branch SARS-COV-2 COVID-19 2020-11-14 Completed Unive rsity of PFIZER VACCINE 00:00:00 [facility] SARS-COV-2 COVID-19 2020-11-14 Completed Unive rsity of PFIZER VACCINE 00:00:00 [facility] SARS-COV-2 COVID-19 2020-11-14 Completed Unive rsity of PFIZER VACCINE 00:00:00 [facility] SARS-COV-2 COVID-19 2020-11-14 Completed Unive rsity of PFIZER VACCINE 00:00:00 [facility] SARS-COV-2 COVID-19 2020-11-14 Completed Unive rsity of PFIZER VACCINE 00:00:00 [facility] Influenza High Dose 2020-06-22 Completed Unive rsity of 00:00:00 [facility] Influenza High Dose 2020-06-22 Completed Unive rsity of 00:00:00 [facility] Influenza High Dose 2020-06-22 Completed Unive rsity of 00:00:00 [facility] Influenza High Dose 2020-06-22 Completed Unive rsity of 00:00:00 [facility] Influenza High Dose 2020-06-22 Completed Unive rsity of 00:00:00 [facility] Influenza High Dose 2020-06-22 Completed Unive rsity of 00:00:00 [facility] Influenza High Dose 2020-06-22 Completed Unive rsity of 00:00:00 [facility] Influenza High Dose 2020-06-22 Completed Unive rsity of 00:00:00 [facility] Influenza High Dose 2020-06-22 Completed Unive rsity of 00:00:00 [facility] Influenza High Dose 2020-06-22 Completed Unive rsity of 00:00:00 [facility] Influenza High Dose 2020-06-22 Completed Unive rsity of 00:00:00 [facility] Influenza High Dose 2020-06-22 Completed Unive rsity of 00:00:[address] [facility] Branch Influenza High Dose 2020-06-22 Completed Unive rsity of 00:00:00 [facility] Influenza High Dose 2020-06-22 Completed Unive rsity of 00:00:00 [facility] Influenza High Dose 2020-06-22 Completed Unive rsity of 00:00:00 [facility] Influenza High Dose 2020-06-22 Completed Unive rsity of 00:00:00 [facility] Influenza High Dose 2020-06-22 Completed Unive rsity of 00:00:00 [facility] Influenza High Dose 2020-06-22 Completed Unive rsity of 00:00:[address] [facility] Branch Pneumococcal 2019-03-17 Completed University o f Polysaccharide, 00:00:00 [place] Med ical PPSV23 (PNEUMOVAX) Branch Pneumococcal 2019-03-17 Completed University o f Polysaccharide, 00:00:00 [place] Med ical PPSV23 (PNEUMOVAX) Branch Pneumococcal 2019-03-17 Completed University o f Polysaccharide, 00:00:00 [place] Med ical PPSV23 (PNEUMOVAX) Branch Pneumococcal 2019-03-17 Completed University o f Polysaccharide, 00:00:00 [place] Med ical PPSV23 (PNEUMOVAX) Branch Pneumococcal 2019-03-17 Completed University o f Polysaccharide, 00:00:00 [place] Med ical PPSV23 (PNEUMOVAX) Branch Pneumococcal 2019-03-17 Completed University o f Polysaccharide, 00:00:00 [place] Med ical PPSV23 (PNEUMOVAX) Branch Pneumococcal 2019-03-17 Completed University o f Polysaccharide, 00:00:00 [place] Med ical PPSV23 (PNEUMOVAX) Branch Pneumococcal 2019-03-17 Completed University o f Polysaccharide, 00:00:00 [place] Med ical PPSV23 (PNEUMOVAX) Branch Pneumococcal 2019-03-17 Completed University o f Polysaccharide, 00:00:00 [place] Med ical PPSV23 (PNEUMOVAX) Branch Pneumococcal 2019-03-17 Completed University o f Polysaccharide, 00:00:00 [place] Med ical PPSV23 (PNEUMOVAX) Branch Pneumococcal 2019-03-17 Completed University o f Polysaccharide, 00:00:00 [place] Med ical PPSV23 (PNEUMOVAX) Branch Pneumococcal 2019-03-17 Completed University o f Polysaccharide, 00:00:00 [place] Med ical PPSV23 (PNEUMOVAX) Branch Pneumococcal 2019-03-17 Completed University o f Polysaccharide, 00:00:00 [place] Med ical PPSV23 (PNEUMOVAX) Branch Pneumococcal 2019-03-17 Completed University o f Polysaccharide, 00:00:00 [place] Med ical PPSV23 (PNEUMOVAX) Branch Pneumococcal 2019-03-17 Completed University o f Polysaccharide, 00:00:00 [place] Med ical PPSV23 (PNEUMOVAX) Branch Pneumococcal 2019-03-17 Completed University o f Polysaccharide, 00:00:00 [place] [facility] ical PPSV23 (PNEUMOVAX) Branch Pneumococcal 2019-03-17 Completed University o f Polysaccharide, 00:00:00 [place] Med ical PPSV23 (PNEUMOVAX) Branch Pneumococcal 2019-03-17 Completed University o f Polysaccharide, 00:00:00 [place] [facility] ical PPSV23 (PNEUMOVAX) Branch Pneumococcal 13 2017-11-18 Completed Universit y of Conjugate, PCV13 00:00:00 [place] Me [facility] (Prevnar 13) Branch Pneumococcal 13 2017-11-18 Completed Universit y of Conjugate, PCV13 00:00:00 [place] Me [facility]ical (Prevnar 13) Branch Pneumococcal 13 2017-11-18 Completed Universit y of Conjugate, PCV13 00:00:00 [place] Me dical (Prevnar 13) Branch Pneumococcal 13 2017-11-18 Completed Universit y of Conjugate, PCV13 00:00:00 [place] Me dical (Prevnar 13) Branch Pneumococcal 13 2017-11-18 Completed Universit y of Conjugate, PCV13 00:00:00 [place] Me dical (Prevnar 13) Branch Pneumococcal 13 2017-11-18 Completed Universit y of Conjugate, PCV13 00:00:00 [place] Me dical (Prevnar 13) Branch Pneumococcal 13 2017-11-18 Completed Universit y of Conjugate, PCV13 00:00:00 [place] Me [facility]ical (Prevnar 13) Branch Pneumococcal 13 2017-11-18 Completed Universit y of Conjugate, PCV13 00:00:00 [place] Me [facility]ical (Prevnar 13) Branch Pneumococcal 13 2017-11-18 Completed Universit y of Conjugate, PCV13 00:00:00 [place] Me [facility]ical (Prevnar 13) Branch Pneumococcal 13 2017-11-18 Completed Universit y of Conjugate, PCV13 00:00:00 [place] Me [facility]ical (Prevnar 13) Branch Pneumococcal 13 2017-11-18 Completed Universit y of Conjugate, PCV13 00:00:00 [place] Me dical (Prevnar 13) Branch Pneumococcal 13 2017-11-18 Completed Universit y of Conjugate, PCV13 00:00:00 [place] Me dical (Prevnar 13) Branch Influenza High Dose 2017-06-27 Completed Unive rsity of 00:00:[address] [facility] Branch Influenza High Dose 2017-06-27 Completed Unive rsity of 00:00:00 [facility] Influenza High Dose 2017-06-27 Completed Unive rsity of 00:00:00 [facility] Influenza High Dose 2017-06-27 Completed Unive rsity of 00:00:00 [facility] Influenza High Dose 2017-06-27 Completed Unive rsity of 00:00:00 [facility] Influenza High Dose 2017-06-27 Completed Unive rsity of 00:00:00 [facility] Influenza High Dose 2017-06-27 Completed Unive rsity of 00:00:00 [facility] Influenza High Dose 2017-06-27 Completed Unive rsity of 00:00:00 [facility] Influenza High Dose 2017-06-27 Completed Unive rsity of 00:00:00 [facility] Influenza High Dose 2017-06-27 Completed Unive rsity of 00:00:00 [facility] Influenza High Dose 2017-06-27 Completed Unive rsity of 00:00:00 [facility] Influenza High Dose 2017-06-27 Completed Unive rsity of 00:00:00 [facility] Influenza Virus 2015-06-28 Completed Universit y of Vaccine 00:00:00 [facility] Influenza Virus 2015-06-28 Completed Universit y of Vaccine (3+ yrs) 00:00:00 [facility] Influenza Virus 2015-06-28 Completed Universit y of Vaccine 00:00:00 [facility] Influenza Virus 2015-06-28 Completed Universit y of Vaccine (3+ yrs) 00:00:00 [facility] Influenza Virus 2015-06-28 Completed Universit y of Vaccine 00:00:00 [facility] Influenza Virus 2015-06-28 Completed Universit y of Vaccine (3+ yrs) 00:00:00 [facility] Influenza Virus 2015-06-28 Completed Universit y of Vaccine 00:00:00 [facility] Influenza Virus 2015-06-28 Completed Universit y of Vaccine (3+ yrs) 00:00:00 [facility] Influenza Virus 2015-06-28 Completed Universit y of Vaccine 00:00:00 [facility] Influenza Virus 2015-06-28 Completed Universit y of Vaccine (3+ yrs) 00:00:00 [facility] Influenza Virus 2015-06-28 Completed Universit y of Vaccine 00:00:00 [facility] Influenza Virus 2015-06-28 Completed Universit y of Vaccine (3+ yrs) 00:00:00 [facility] Influenza Virus 2015-06-28 Completed Universit y of Vaccine 00:00:00 [facility] Influenza Virus 2015-06-28 Completed Universit y of Vaccine (3+ yrs) 00:00:00 [facility] Influenza Virus 2015-06-28 Completed Universit y of Vaccine 00:00:00 [facility] Influenza Virus 2015-06-28 Completed Universit y of Vaccine (3+ yrs) 00:00:00 [facility] Influenza Virus 2015-06-28 Completed Universit y of Vaccine 00:00:00 [facility] Influenza Virus 2015-06-28 Completed Universit y of Vaccine (3+ yrs) 00:00:00 [facility] Influenza Virus 2015-06-28 Completed Universit y of Vaccine 00:00:00 [facility] Influenza Virus 2015-06-28 Completed Universit y of Vaccine (3+ yrs) 00:00:00 [facility] Influenza Virus 2015-06-28 Completed Universit y of Vaccine 00:00:00 [facility] Influenza Virus 2015-06-28 Completed Universit y of Vaccine (3+ yrs) 00:00:00 [facility] Influenza Virus 2015-06-28 Completed Universit y of Vaccine 00:00:00 [facility] Influenza Virus 2015-06-28 Completed Universit y of Vaccine (3+ yrs) 00:00:00 [facility] TDAP 2013-06-23 Completed University of 00:00:00 [facility] TDAP 2013-06-23 Completed University of 00:00:00 [facility] TDAP 2013-06-23 Completed University of 00:00:00 [facility] TDAP 2013-06-23 Completed University of 00:00:00 [facility] TDAP 2013-06-23 Completed University of 00:00:00 [facility] TDAP 2013-06-23 Completed University of 00:00:00 [facility] TDAP 2013-06-23 Completed University of 00:00:00 [facility] TDAP 2013-06-23 Completed University of 00:00:00 [facility] TDAP 2013-06-23 Completed University of 00:00:00 [facility] TDAP 2013-06-23 Completed University of 00:00:00 [facility] TDAP 2013-06-23 Completed University 00:00:[address] [facility] Branch TDAP 2013-06-23 Completed [facility] 00:00:[address] [facility] Zoster(Zostavax)( 2012-06-03 Completed Unive rsity of ingles) 00:00:[address] [facility] Branch Zoster(Zostavax)( 2012-06-03 Completed Unive rsity of ingles) 00:00:00 [facility] Zoster(Zostavax)( 2012-06-03 Completed Unive rsity of ingles) 00:00:[address] [facility] Branch Zoster(Zostavax)( 2012-06-03 Completed Unive rsity of ingles) 00:00:00 [facility] Zoster(Zostavax)( 2012-06-03 Completed Unive rsity of ingles) 00:00:[address] [facility] Branch Zoster(Zostavax)( 2012-06-03 Completed Unive rsity of ingles) 00:00:00 [facility] Zoster(Zostavax)( 2012-06-03 Completed Unive rsity of ingles) 00:00:00 [facility] Zoster(Zostavax)( 2012-06-03 Completed Unive rsity of ingles) 00:00:00 [facility] Zoster(Zostavax)( 2012-06-03 Completed Unive rsity of ingles) 00:00:00 [facility] Zoster(Zostavax)( 2012-06-03 Completed Unive rsity of ingles) 00:00:00 [facility] Zoster(Zostavax)( 2012-06-03 Completed Unive rsity of ingles) 00:00:00 [facility] Zoster(Zostavax)( 2012-06-03 Completed Unive rsity of ingles) 00:00:00 [facility] Influenza Virus 2005-06-26 Completed Universit y of Vaccine 00:00:00 [facility] Influenza Virus 2005-06-26 Completed Universit y of Vaccine 00:00:00 [facility] Influenza Virus 2005-06-26 Completed Universit y of Vaccine 00:00:00 [facility] Influenza Virus 2005-06-26 Completed Universit y of Vaccine 00:00:00 [facility] Influenza Virus 2005-06-26 Completed Universit y of Vaccine 00:00:00 [facility] Influenza Virus 2005-06-26 Completed Universit y of Vaccine 00:00:00 [facility] Influenza Virus 2005-06-26 Completed Universit y of Vaccine 00:00:00 [facility] Influenza Virus 2005-06-26 Completed Universit y of Vaccine 00:00:00 [facility] Influenza Virus 2005-06-26 Completed Universit y of Vaccine 00:00:00 [facility] Influenza Virus 2005-06-26 Completed Universit y of Vaccine 00:00:00 [facility] Influenza Virus 2005-06-26 Completed Universit y of Vaccine 00:00:00 [facility] Influenza Virus 2005-06-26 Completed Universit y of Vaccine 00:00:00 [facility] Influenza Virus 1999-07-10 Completed Universit y of Vaccine - Whole 00:00:00 [facility] Influenza Virus 1999-07-10 Completed Universit y of Vaccine - Whole 00:00:00 [facility] Influenza Virus 1999-07-10 Completed Universit y of Vaccine - Whole 00:00:00 [facility] Influenza Virus 1999-07-10 Completed Universit y of Vaccine - Whole 00:00:00 [facility] Influenza Virus 1999-07-10 Completed Universit y of Vaccine - Whole 00:00:00 [facility] Influenza Virus 1999-07-10 Completed Universit y of Vaccine - Whole 00:00:00 [facility] Influenza Virus 1999-07-10 Completed Universit y of Vaccine - Whole 00:00:00 [facility] Influenza Virus 1999-07-10 Completed Universit y of Vaccine - Whole 00:00:00 [facility] Influenza Virus 1999-07-10 Completed Universit y of Vaccine - Whole 00:00:00 [facility] Influenza Virus 1999-07-10 Completed Universit y of Vaccine - Whole 00:00:00 [facility] Influenza Virus 1999-07-10 Completed Universit y of Vaccine - Whole 00:00:00 [facility] Influenza Virus 1999-07-10 Completed Universit y of Vaccine - Whole 00:00:00 [facility] Tetanus/Diptheria 1999-04-19 Completed Univers ity of 00:00:00 [facility] DTP 1999-04-19 Completed University of 00:00:00 [facility] Tetanus/Diptheria 1999-04-19 Completed Univers ity of 00:00:00 [facility] DTP 1999-04-19 Completed University of 00:00:00 [facility] Tetanus/Diptheria 1999-04-19 Completed Univers ity of 00:00:00 [facility] DTP 1999-04-19 Completed University of 00:00:00 [facility] Tetanus/Diptheria 1999-04-19 Completed Univers ity of 00:00:00 [facility] DTP 1999-04-19 Completed University of 00:00:00 [facility] Tetanus/Diptheria 1999-04-19 Completed Univers ity of 00:00:00 [facility] DTP 1999-04-19 Completed University of 00:00:00 [facility] Tetanus/Diptheria 1999-04-19 Completed Univers ity of 00:00:00 [facility] DTP 1999-04-19 Completed University of 00:00:00 [facility] Tetanus/Diptheria 1999-04-19 Completed Univers ity of 00:00:00 [facility] DTP 1999-04-19 Completed University of 00:00:00 [facility] Tetanus/Diptheria 1999-04-19 Completed Univers ity of 00:00:00 [facility] DTP 1999-04-19 Completed University of 00:00:00 [facility] Tetanus/Diptheria 1999-04-19 Completed [facility] University of 00:00:00 [facility] Tetanus/Diptheria 1999-04-19 Completed Univers ity of 00:00:00 [facility] DTP 1999-04-19 Completed University of 00:00:00 [facility] Tetanus/Diptheria 1999-04-19 Completed Univers ity of 00:00:00 [facility] DTP 1999-04-19 Completed University of 00:00:00 [facility] Tetanus/Diptheria 1999-04-19 Completed [facility] 00:[facility]00 [facility] 1999[facility] Com[facility] University of 00:00:00 [facility] Vital Signs Vital Name Observation Time Observation Value Comments Source Systolic blood 2021-03-07 13:45:00 132 mm[Hg] Univer sity of pressure [facility] Diastolic blood 2021-03-07 13:45:00 73 mm[Hg] Unive rsity of pressure [facility] Heart rate 2021-03-07 13:45:00 54 /min [facility] [place] [facility] Body temperature 2021-03-07 13:44:00 35.67 Suze Univ ersity [facility] [place] [facility] Body height 2021-03-07 13:44:00 170.2 cm [facility] [place] [facility] Body weight 2021-03-07 13:44:00 81.693 kg [facility] [place] [facility] BMI 2021-03-07 13:44:00 28.21 kg/m2 [facility] [place] [facility] Oxygen saturation in 2021-03-07 13:44:00 97 /min University of Arterial blood by [place] [employer] arely Pulse oximetry Branch Systolic blood 2020-12-05 18:53:00 120 mm[Hg] Univer sity of pressure [facility] Diastolic blood 2020-12-05 18:53:00 72 mm[Hg] Unive rsity of pressure [facility] Heart rate 2020-12-05 18:53:00 67 /min [facility] [place] [facility] Body temperature 2020-12-05 18:51:00 36.06 Suze [facility] [place] [facility] Body height 2020-12-05 18:51:00 170.2 cm [facility] [place] [facility] Body weight 2020-12-05 18:51:00 80.786 kg [facility] [place] [facility] BMI 2020-12-05 18:51:00 27.89 kg/m2 [facility] [place] [facility] Oxygen saturation in 2020-12-05 18:51:00 96 /min University of Arterial blood by [facility] arely Pulse oximetry Branch Systolic blood 2020-10-06 17:23:00 131 mm[Hg] Univer sity of pressure [facility] Diastolic blood 2020-10-06 17:23:00 72 mm[Hg] Unive rsity of pressure [facility] Heart rate 2020-10-06 17:23:00 62 /min [facility] [place] [facility] Respiratory rate 2020-10-06 17:13:00 19 /min [facility] ers[facility] [place] [facility] Body height 2020-10-06 17:13:00 170.2 cm [facility] [place] [facility] Body weight 2020-10-06 17:13:00 82.872 kg Universi ty of [facility] BMI 2020-10-06 17:13:00 28.61 kg/m2 [facility] Oxygen saturation in 2020-10-06 17:13:00 95 /min University of Arterial blood by [facility] Pulse oximetry Branch Systolic blood 2020-02-29 20:25:00 178 mm[Hg] Univer sity of pressure [facility] Diastolic blood 2020-02-29 20:25:00 64 mm[Hg] Unive rsity of pressure [facility] Heart rate 2020-02-29 20:25:00 71 /min [facility] Body temperature 2020-02-29 20:25:00 36.83 Suze [facility] Respiratory rate 2020-02-29 20:25:00 18 /min [facility] Body weight 2020-02-29 20:25:00 81.375 kg [facility] BMI 2020-02-29 20:25:00 24.33 kg/m2 [facility] Systolic blood 2020-02-17 12:41:00 181 mm[Hg] Univer sity of pressure [facility] Diastolic blood 2020-02-17 12:41:00 68 mm[Hg] Unive rsity of pressure [facility] Heart rate 2020-02-17 12:41:00 49 /min [facility] Body temperature 2020-02-17 12:41:00 36.17 Suze [facility] Respiratory rate 2020-02-17 12:41:00 16 /min [facility] Oxygen saturation in 2020-02-17 12:41:00 94 /min [facility] Arterial blood by [facility] Pulse oximetry Branch Body height 2020-02-11 20:19:32 182.9 cm [facility] Body weight 2020-02-11 20:18:27 81.647 kg [facility] BMI 2020-02-11 20:18:27 24.41 kg/m2 [facility] Systolic blood 2020-02-11 19:00:00 92 mm[Hg] Univer sity of pressure [facility] Diastolic blood 2020-02-11 19:00:00 55 mm[Hg] Unive rsity of pressure [facility] Heart rate 2020-02-11 19:00:00 78 /min [facility] Body temperature 2020-02-11 19:00:00 36.17 Suze [facility] Respiratory rate 2020-02-11 19:00:00 19 /min [facility] Oxygen saturation in 2020-02-11 19:00:00 95 /min [facility] Arterial blood by [facility] Pulse oximetry [place] Body weight 2020-02-11 16:55:35 81.647 kg [facility] BMI 2020-02-11 16:55:35 28.19 kg/m2 [facility] Body height 2020-02-11 06:55:00 170.2 cm [facility] Procedures Procedure Date / Time Performing Clinician Source Performed [facility] ELECTROCARDIOGRAM, 2020-10-06 17:23:45 Carlos Christianson [facility] COMPLETE [facility] ASSIGNMENT OF BENEFITS 2020-02-29 20:10:25 Doctor Unassigned, [facility] [place] [facility] POCT GLUCOSE (AUTOMATED) 2020-02-17 12:38:00 Person, Reddy [facility] BASIC METABOLIC PANEL (NA, 2020-02-17 09:08:00 Sathya Cardoso [facility] K, CL, CO2, GLUCOSE, BUN, Medica l Branch CREATININE, CA) CBC WITH DIFFERENTIAL 2020-02-17 09:08:00 Sathya Cardoso [facility] sity [facility] POCT GLUCOSE (AUTOMATED) 2020-02-17 09:03:00 Person, Reddy [facility] XR CHEST 1 VW 2020-02-17 08:38:31 Jose Brody [facility] [place] Mari[place], [facility] POCT GLUCOSE (AUTOMATED) 2020-02-17 05:33:00 Person, Reddy [facility] POCT GLUCOSE (AUTOMATED) 2020-02-17 01:55:00 Person, Reddy [facility] POCT GLUCOSE (AUTOMATED) 2020-02-17 01:04:00 Person, Reddy [facility] POCT GLUCOSE (AUTOMATED) 2020-02-16 21:06:00 Person, Reddy [facility] POCT GLUCOSE (AUTOMATED) 2020-02-16 16:40:00 Person, Reddy [facility] TROPONIN I 2020-02-16 12:17:00 Danny Robbins, [facility] Cole [facility] BASIC METABOLIC PANEL (NA, 2020-02-16 10:29:00 [facility] K, CL, CO2, GLUCOSE, BUN, Medica l Branch CREATININE, CA) CBC WITH DIFFERENTIAL 2020-02-16 10:29:00 Sathya Cardoso [facility] GLYCOSYLATED HEMOGLOBIN 2020-02-16 10:29:00 Jose Brody [facility] (A1C) Mariya Luís [facility] XR CHEST 1 VW 2020-02-16 09:56:25 Charline Zavala [facility] POCT GLUCOSE (AUTOMATED) 2020-02-16 05:03:00 Person, Reddy [facility] POCT GLUCOSE (AUTOMATED) 2020-02-16 02:07:00 Person, Reddy [facility] POCT GLUCOSE (AUTOMATED) 2020-02-15 22:35:00 Person, Reddy [facility] POCT GLUCOSE (AUTOMATED) 2020-02-15 13:12:00 Person, Reddy [facility] US RETROPERITONEAL 2020-02-15 09:33:19 Benoit Laboy [facility] COMPLETE [facility] BASIC METABOLIC PANEL (NA, 2020-02-15 09:18:00 Sathya Cardoso [facility] [place] K, CL, CO2, GLUCOSE, BUN, Medica l Branch CREATININE, CA) CBC WITH DIFFERENTIAL 2020-02-15 09:18:00 Sathya Cardoso [facility] XR CHEST 1 VW 2020-02-15 09:15:00 Jose Brody [facility] MariyaLuís syed Medical Branc h SODIUM URINE 2020-02-15 05:02:00 Elder Dobson [facility] POCT GLUCOSE (AUTOMATED) 2020-02-15 01:56:00 Person, Reddy [facility] URINALYSIS 2020-02-15 00:50:00 Jose [facility] Mariya, [facility] POCT GLUCOSE (AUTOMATED) 2020-02-14 23:01:00 Person, Reddy [facility] POCT GLUCOSE (AUTOMATED) 2020-02-14 22:20:00 Person, Reddy [facility] XR CHEST 1 VW 2020-02-14 21:26:14 [facility] PO[facility] GLUCOSE (AUTOMATED) 2020-02-14 12:58:00 Person, Reddy [facility] BASIC METABOLIC PANEL (NA, 2020-02-14 08:59:00 Sathya Cardoso [facility] K, CL, CO2, GLUCOSE, BUN, Medica l Branch CREATININE, CA) CBC WITH DIFFERENTIAL 2020-02-14 08:59:00 Sathya Cardoso [facility] XR CHEST 1 VW 2020-02-14 08:01:53 Jose Brody [facility] Mariya, [facility] CREATININE, URINE RANDOM 2020-02-14 04:54:00 [facility], [facility]INE RANDOM 2020-02-14 04:54:00 Jose Brody [facility] Mariya, [facility] SODIUM, URINE RANDOM 2020-02-14 04:54:00 Jose Brody [facility] Mariya, [facility] CHLORIDE, URINE RANDOM 2020-02-14 04:54:00 Jose Brody [facility] Mariya, [facility] POCT GLUCOSE (AUTOMATED) 2020-02-14 01:53:00 Person, Reddy [facility] BASIC METABOLIC PANEL (NA, 2020-02-14 00:32:00 Jose Brody [facility] K, CL, CO2, GLUCOSE, BUN, Mariya, Lu[facility] ical Branch CREATININE, CA) POCT GLUCOSE (AUTOMATED) 2020-02-13 22:31:00 Person, Reddy [facility] POCT GLUCOSE (AUTOMATED) 2020-02-13 17:48:00 Person, Reddy [facility] BASIC METABOLIC PANEL (NA, 2020-02-13 15:29:00 Sathya Cardoso niversity [facility] K, CL, CO2, GLUCOSE, BUN, Medica l Branch CREATININE, CA) CBC WITH DIFFERENTIAL 2020-02-13 15:29:00 Sathya Cardoso [facility] POCT GLUCOSE (AUTOMATED) 2020-02-13 14:46:00 Person, Reddy [facility] XR CHEST 1 VW 2020-02-13 08:43:00 [facility] Mariya, [facility] POCT GLUCOSE (AUTOMATED) 2020-02-13 02:39:00 Person, Reddy Uni versity of [facility] POCT GLUCOSE (AUTOMATED) 2020-02-12 18:52:00 Person, Reddy Uni versity [facility] POCT GLUCOSE (AUTOMATED) 2020-02-12 13:35:00 Person, Reddy [facility] PHOSPHORUS 2020-02-12 09:55:00 Walker [facility] BASIC METABOLIC PANEL (NA, 2020-02-12 09:55:00 Sathya Card[facility] [place] K, CL, CO2, GLUCOSE, BUN, Medica l Branch CREATININE, CA) CBC WITH DIFFERENTIAL 2020-02-12 09:55:00 Sathya Cardoso [facility] XR CHEST 1 VW 2020-02-12 08:51:55 [facility] Mariya, [facility] POCT GLUCOSE (AUTOMATED) 2020-02-12 03:54:00 Person, Reddy [facility] POCT GLUCOSE (AUTOMATED) 2020-02-12 02:32:00 Person, Reddy [facility] CRITICAL CARE 2020-02-11 21:34:22 Saul [facility] XR CHEST 1 VW 2020-02-11 20:55:40 Walker [facility] XR CHEST 1 VW 2020-02-11 18:24:29 Saul [facility] CT TRAUMA THORAX W 2020-02-11 17:40:51 Cheryl [facility] [place] CONTRAST Medical Branch CT TRAUMA ABDOMEN PELVIS W 2020-02-11 17:40:51 [facility] CT TRAUMA HEAD WO CONTRAST 2020-02-11 17:39:21 [facility] CERVICAL SPINE 2020-02-11 17:39:21 Cheryl Hughes Uni versity [facility] CONTRAST Medical Branch CT TRAUMA THORACIC SPINE 2020-02-11 17:39:21 Cheryl Hughes [facility] CONTRAST Medical Branch CT TRAUMA LUMBAR SPINE WO 2020-02-11 17:39:21 Cher[facility] Branch XR CHEST 1 VW 2020-02-11 17:14:51 Cheryl Hughes [facility] COVID-19 (ID NOW RAPID 2020-02-11 17:08:00 Cheryl Hughes [facility] TESTING) Medical Branch LIPASE 2020-02-11 17:01:00 Cheryl Hughes [facility] TROPONIN I 2020-02-11 17:01:00 Cheryl Hughes [facility] HEPATIC FUNCTION PANEL 2020-02-11 17:01:00 Cheryl Hughes [facility] ([id number]) (ALB,T.PRO,BILI Medical Branch T,BU/BC,ALT,AST,ALK PHOS) BASIC METABOLIC PANEL (NA, 2020-02-11 17:01:00 Cheryl Hughes [facility] K, CL, CO2, GLUCOSE, BUN, Medica l Branch CREATININE, CA) CBC WITH DIFFERENTIAL 2020-02-11 17:01:00 Cheryl Hughes sity [facility] PROTHROMBIN TIME / INR 2020-02-11 17:01:00 Cheryl Hughes [facility] ACTIVATED PARTIAL THRMPLAS 2020-02-11 17:01:00 Cheryl Hughes [facility] SANJUANITA [facility] EKG-12 LEAD 2020-02-11 16:57:27 Cheryl Hughes [facility] Encounters Start End Encounter Admission Attending Care Care Encounter Source Date/Time Date/Time Type Type Clinicians Facility Department ID 2021-06-07 2021-06-07 Outpatient [place] [facility] [id number] Univers 08:30:00 08:30:00 AYSE ity [facility] 2021-06-04 2021-06-04 Outpatient R [place] [id number] Univers 09:00:00 09:00:00 AYSE ity [facility] 2021-03-16 2021-03-16 Telephone [facility] [id number] Univers 00:00:00 00:00:00 Ayse MULTISPEC [id number] [id number] [id number] [address] DI[facility]IC 2021-03-07 2021-03-07 Field Technical Assistant [facility] 1.2.840.114 [id number] Univers 09:13:33 09:28:33 Visit Ayse Gonzales 350.1.13.1 0 [id number] [id number] [facility] [address] [place] DI[facility] 2021-03-07 2021-03-07 Office [facility] [id number] Univers 08:27:54 09:14:25 Visit Ayse BLAIRPEC [id number] it[id number] [id number] [address] [facility] 2021-03-07 2021-03-07 Outpatient R [place] [id number] Univers 09:00:00 09:00:00 AYSE ity [facility] 2021-03-02 2021-03-02 Outpatient R [place] [id number] Univers 08:00:00 08:00:00 AYSE ity [facility] 2021-02-28 2021-02-28 Telephone [facility] 1.2.840.114 [id number] Univers 00:00:00 00:00:00 Ayse MULTISPEC [id number] it[place] [id number] [address] [facility] 2020-12-19 2020-12-19 Refill [facility] 1.2.825.354 [id number] Univers 00:00:00 00:00:00 Ayse MULTISPEC [id number] ity of IALTY [id number] [facility] [phone] [facility] AND [address] DIABETES CLINIC 2020-12-14 2020-12-14 [facility] 1.2.840.114 [id number] Univers 07:53:25 23:59:00 Encounter Sendil Jose L Garza [id number] ity of [place] 4.2.7.2.686 [facility] [id number] [facility] [address] [place] 2020-12-14 2020-12-14 [facility] 1.2.840.114 [id number] Univers 07:53:14 23:59:00 Encounter Sendil Jose L Shinton [id number] ity of [place] 4.2.7.2.686 [facility] [id number] [facility] [address] [place] 2020-12-14 2020-12-14 [facility] 1.2.840.114 [id number] Univers 07:53:04 23:59:00 Encounter Sendil Jose L Shinton [id number] ity of [place] 4.2.7.2.686 [facility] [id number] [facility] [address] [place] 2020-12-14 2020-12-14 [facility] 1.2.840.114 [id number] Univers 07:52:23 07:52:23 Encounter Sendil Jose L Shinton [id number] ity of [place] 4.2.7.2.686 [facility] [phone] [place] [id number] [place] 2020-12-14 2020-12-14 [facility] [id number] Univers 00:00:00 00:00:00 SENDIL ity of [facility] 2020-12-05 2020-12-05 Office [facility] 1.2.514.406 [id number] Univers 13:35:35 14:36:37 Visit Ayse TAYLOR [id number] ity of [place] 4.2.7.2.686 [facility] [id number] [address] DI[facility]ES [facility] 2020-12-05 2020-12-05 Outpatient R [place] [place] [id number] Univers 14:00:00 14:00:00 AYSE larry [facility] 2020-12-01 2020-12-01 Field Technical Assistant Tomer, Adc Lab Main [facility] 1.2.8 40.114 [id number] Univers 08:24:35 08:39:35 Visit Ayse Gonzales [id number] ity of [place] 4.2.7.2.686 [facility] [place] [phone] Al dical nal 353 [facility] 2020-12-01 2020-12-01 Outpatient R [place] [id number] Univers 08:30:00 08:30:00 AYSE larry [facility] 2020-11-28 2020-11-28 Telephone [facility] 1.2.840.114 [id number] Univers 00:00:00 00:00:00 Ayse TAYLOR 350.1.13.10 ity of [place] 4.2.7.2.686 [facility] [id number] [address] [facility] 2020-11-13 2020-11-13 Outpatient R [place] [id number] Univers 16:00:00 16:00:00 SENDIL itarnold of [facility] 2020-11-06 2020-11-06 Patient Jerad [facility] 1.2.840.114 [id number] Univers 00:00:00 00:00:00 Outreach Neal DEAL [id number] i ty of [place] ARIZMENDI 4.2.7.2.686 [facility] BLU [phone] Al dical [address] [place] 2020-10-06 2020-10-06 Office Sammy [facility] 1.2.840.114 [id number] Univers 10:53:30 12:21:03 Visit Carlos Garza [id number] it[place] [phone] Al dical nal 059 [facility] 2020-10-06 2020-10-06 Outpatient R SAM[place] [id number] Univers 11:00:00 11:00:00 SENDIL ity of [facility] 2020-09-17 2020-09-17 Refill Doctor [facility] 1.2.840.114 [id number] Univers 00:00:00 00:00:00 Unassigned, MULTISPEC 350.1.13.10 ity of [place] [id number] [address] [facility] 2020-09-05 2020-09-05 [facility] [id number] Univers 11:00:00 11:00:00 AYSE ity [facility] 2020-09-05 2020-09-05 Telemedici [facility] 1.2.840.114 [id number] Univers 07:24:28 07:54:28 ne Visit Ayse BLAIRPEC [id number] [place] [id number] [address] DI[facility]ES [facility] 2020-08-30 2020-08-30 Field Technical Assistant Tomer, Adc Lab Main [facility] 1.2.8 40.114 [id number] Univers 09:16:09 09:31:09 Visit Ayse Gonzales 350.1.13.10 it[place] [phone] Al dical nal 353 [facility] 2020-08-30 2020-08-30 [facility] [id number] Univers 09:15:00 09:15:00 AYSE ity [facility] 2020-08-29 2020-08-29 Telephone [facility] 1.2.840.114 [id number] Univers 00:00:00 00:00:00 Ayse MULTISPEC 350.1.13.10 [place] [id number] [address] DI[facility] 2020-08-14 2020-08-14 Refill [facility] [id number] Univers 00:00:00 00:00:00 Ayse BLAIRPEC 350.1.13.10 ity of IAL[place] 4.2.7.2.686 [facility] [place] [id number] [address] DI[facility] CLINIC 2020-04-14 2020-04-14 Telephone [facility] 1.2.840.114 [id number] Univers 00:00:00 00:00:00 Ayse MULTISPEC 350.1.13.10 ity of [place] 4.2.7.2.686 [facility] [place] [id number] [address] DIABETES CLINIC 2020-03-23 2020-03-23 Outpatient R [place] [id number] [facility] 13:00:00 13:00:00 AYSE ity [facility] 2020-03-23 2020-03-23 Telemedici [facility] 1.2.840.114 [id number] Univers 07:48:19 08:48:19 ne Visit [facility] 350.1.13.10 ity of IALTY 4.2.7.2.686 [facility] [place] [id number] [address] DIABETES CLINIC 2020-03-21 2020-03-21 Outpatient R [place] [id number] Univers 13:00:00 13:00:00 AYSE ity [facility] 2020-03-20 2020-03-20 Field Technical Assistant Yousuf Jeff Lab Main [facility] 1.2.8 40.114 [id number] Univers 08:13:42 08:28:42 Visit Ayse Gonzales 350.1.13.10 ity of [place] 4.2.7.2.686 [facility] Professio [id number] [address] 2020-03-20 2020-03-20 Outpatient R [place] [id number] Univers 07:30:00 07:30:00 AYSE ity [facility] 2020-03-16 2020-03-16 Telephone [facility] 1.2.840.114 [id number] Univers 00:00:00 00:00:00 Ayse MULTISPEC 350.1.13.10 it[place] [id number] [address] DI[facility]ETES CLINIC 2020-03-14 2020-03-14 Telephone [facility] 1.2.840.114 [id number] Univers 00:00:00 00:00:00 Ayse MULTISPEC 350.1.13.10 ity [place] [id number] [address] DIABETES CLINIC 2020-02-29 2020-02-29 Office [facility] 1.2.808.384 [id number] Univers 15:10:36 15:43:10 Visit Anabella Garza 350.1.13.10 i ty of [place] [id number] Al dical [address] 2020-02-29 2020-02-29 Outpatient R JAKUB [place] [id number] Univers 15:15:00 15:15:00 ANABELLA larry of [facility] 2020-02-29 2020-02-29 Orders Doctor DULCE 1.2.840.114 [id number] Univers 00:00:00 00:00:00 Only Unassigned, ROXANA 350.1.13.10 ity of [place] [facility] 4.2.7.2.686 [place] as [phone] [facility] 009 Branch 2020-02-18 2020-02-18 Transition Aquilino Bustos 1.2.840.114 [id number] Univers 00:00:00 00:00:00 of Care Tony Leblanc 350.1.13.10 ity of [place] [phone] [facility] 403 Branch 2020-02-11 2020-02-17 Hospital Nory Lquue 1.2.840.114 [id number] Univers 15:17:21 11:50:00 Encounter Reddy Oropeza 350.1.13.10 ity of Hospital 4.2.7.2.686 [place] as [phone] [facility] 098 Branch 2020-02-11 2020-02-11 Emergency X [facility] E[facility] [id number] Univers 11:54:46 14:08:00 CHERYL larry [facility] 2020-02-11 2020-02-11 Emergency [facility] 1.2.373.654 [id number] Univers 11:54:46 14:08:00 Cheryl Garza 350.1.13.10 i ty of [place] 4.2.7.2.686 [facility] [phone] [facility] [address] [place] 2020-02-11 2020-02-11 Emergency X [facility] ERT [id number] Univers 11:54:46 11:54:46 CHERYL [facility] Results Test Description Test Time Test Comments Results Result Sourc e Comments XR CHEST 1 VW 2020-02-07 EXAM: XR CHEST 1 Unive rsity of 1 VW HISTORY: ct [facility] 13:08:01 removal Branch COMPARISON: None. FINDINGS: The heart and great vessels are normal and the lungs are well expanded andclear.A pneumothorax is not detected. The left hemidiaphragm remains slightlyelevated. Subcutaneous emphysema is diminishing on the right. ? [facility], Radiant Results Inft User - 02/17/2020 8:09 AM CDTEXAM: XR CHEST 1 VWHISTORY: ct removal COMPARISON: None.FINDINGS:The heart and great vessels are normal and the lungs are well expanded andclear.A pneumothorax is not detected. The left hemidiaphragm remains slightlyelevated. Subcutaneous emphysema is diminishing on the right. POCT GLUCOSE (AUTOMATED) 2020-02-17 12:41:00 Test Item Value Reference Range Interpretation Comme nts POCT GLU (test code = 6299434944) 117 mg/dL 70-110 H Lab Interpretation (test code = 00688-1) [facility] (NA, K, CL, CO2, GLUCOSE, BUN, CREATININE, CA)2020-02-17 09:49:00 Test Item Value Reference Range Interpretation Comments NA (test code = 138 mmol/L 135-145 8260352628) K (test code = 4.9 mmol/L 3.5-5 1299982365) CL (test code = 106 mmol/L 98-108 6340020449) CO2 TOTAL (test code = 27 mmol/L 23-31 5701560703) AGAP (test code = 2-16 2026856085) BUN (test code = 38 mg/dL 7-23 H 7859142197) GLUCOSE (test code = 203 mg/dL 70-110 H 3559103703) CREATININE (test code = 1.44 mg/dL 0.6-1.25 H 0731099945) CALCIUM (test code = 8.7 mg/dL 8.6-10.6 8897669838) eGFR Calculation mL/min/1.73m2 (Non-) (test code = 2047711564) eGFR Calculation mL/min/1.73m2 () (test code = 1749521740) LOREN (test code = LOREN) Association of Glomerular Filtration Rate (GFR) and Staging of Kidney Disease* + --+ --+ ------+| GFR (mL/min/1.73 m2) ?| With Kidney Damage ?| ?Without Kidney Damage+ --------+ --------+ +| ?>90 ?| ?Stage one ?| ? Normal ?+ ---+ ---+ -------+| ?60-89 ?| ?Stage two ?| ? Decreased GFR ? + --+ --+ ------+| ?30-59 ?| ?Stage three ?| ? Stage three ? + --+ --+ ------+| ?15-29 ?| ?Stage four ? | ? Stage four ?+ ---+ ---+ -------+| ?<15 (or dialysis) ? ?| ?Stage five ? | ? Stage five ?+ ---+ ---+ -------+ *Each stage assumes the associated GFR level has been in effect for at least three months. ?Stages 1 to 5, with or without kidney disease, indicate chronic kidney disease. Notes: Determination of stages one and two (with eGFR >59mL/min/1.73 m2) requires estimation of kidney damage for at least three months as defined by structural or functional abnormalities of the kidney, manifested by either:Pathological abnormalities or Markers of kidney damage (including abnormalities in the composition of the blood or urine or abnormalities in imaging tests). Lab Interpretation Abnormal (test code = 83042-2) [facility] WITH [id number] 09:27:00 Test Item Value Reference Range Interpretation Comments WBC (test code = See_Comment [Automated 6690-2) message] The sy stem which generated this result transmitted reference range : 4.20 - 10.70 10*3/?L. The reference range was not used to interpret this result as normal/abnormal . RBC (test code = See_Comment L [Automated 789-8) message] The sy stem which generated this result transmitted reference range : 4.26 - 5.52 10*6/?L. The reference range was not used to interpret this result as normal/abnormal . HGB (test code = 11.2 g/dL 12.2-16.4 L 718-7) HCT (test code = 33.2 % 38.4-49.3 L 4544-3) MCV (test code = 91.5 fL 81.7-95.6 787-2) MCH (test code = 30.9 pg 26.1-32.7 785-6) MCHC (test code = 33.7 g/dL 31.2-35 786-4) RDW-SD (test code = 46.7 fL 38.5-51.6 80181-4) RDW-CV (test code = 14.1 % 12.1-15.4 788-0) PLT (test code = See_Comment [Automated 777-3) message] The sy stem which generated this result transmitted reference range : 150 - 328 10*3/ ?L. The reference r susi was not used to interpret this result as normal/abnormal . MPV (test code = 10.3 fL 9.8-13 57907-7) NRBC/100 WBC (test See_Comment [Automat ed code = 1718897738) message] The system which generated this result transmitted reference range : 0.0 - 10.0 /100 WBCs. The refer ence range was not u sed to interpret th is result as normal/abnormal . NRBC x10^3 (test code <0.01 See_Comment [Auto mated = 1208821732) message] The s ystem which generated this result transmitted reference range : 10*3/?L. The reference range was not used to interpret this result as normal/abnormal . GRAN MAT (NEUT) % 79.4 % (test code = 770-8) IMM GRAN % (test code 0.20 % = 5427537311) LYMPH % (test code = 11.2 % 736-9) MONO % (test code = 6.7 % 5905-5) EOS % (test code = 1.9 % 713-8) BASO % (test code = 0.6 % 706-2) GRAN MAT x10^3(ANC) 4.24 10*3/uL 1.99-6.95 (test code = 1027802753) IMM GRAN x10^3 (test <0.03 0-0.06 code = 0582184215) LYMPH x10^3 (test code 0.60 10*3/uL 1.09-3.23 L = 731-0) MONO x10^3 (test code 0.36 10*3/uL 0.36-1.02 = 742-7) EOS x10^3 (test code = 0.10 10*3/uL 0.06-0.53 711-2) BASO x10^3 (test code 0.03 10*3/uL 0.01-0.09 = 704-7) Lab Interpretation Abnormal (test code = 68321-7) [facility] GLUCOSE (AUTOMATED)2020-02-17 09:04:00 Test Item Value Reference Range Interpretation Comments POCT GLU (test code = 3686543972) 210 mg/dL 70-110 H Lab Interpretation (test code = Abnormal 97294-0) [facility] GLUCOSE (AUTOMATED)2020-02-17 05:34:00 Test Item Value Reference Range Interpretation Comments POCT GLU (test code = 3766437410) 251 mg/dL 70-110 H Lab Interpretation (test code = Abnormal 05207-5) [facility] GLUCOSE (AUTOMATED)2020-02-17 01:56:00 Test Item Value Reference Range Interpretation Comments POCT GLU (test code = 1862955389) 190 mg/dL 70-110 H Lab Interpretation (test code = Abnormal 00864-6) [facility] GLUCOSE (AUTOMATED)2020-02-17 01:06:00 Test Item Value Reference Range Interpretation Comments POCT GLU (test code = 5299522823) 224 mg/dL 70-110 H Lab Interpretation (test code = Abnormal 09214-1) [facility]-17 00:01:00 Test Item Value Reference Range Interpretation Comments HGB A1C (test code = 4548-4) 6.8 % 4-6 H Lab Interpretation (test code = Abnormal 68756-6) [facility] GLUCOSE (AUTOMATED)2020-02-16 21:07:00 Test Item Value Reference Range Interpretation Comments POCT GLU (test code = 0699808964) 303 mg/dL 70-110 H Lab Interpretation (test code = Abnormal 60100-6) [facility] GLUCOSE (AUTOMATED)2020-02-16 16:42:00 Test Item Value Reference Range Interpretation Comments POCT GLU (test code = 4236740091) 282 mg/dL 70-110 H Lab Interpretation (test code = Abnormal 03958-3) [facility] [id number] 13:17:11EXAM: XR CHEST 1 VW HISTORY: ptx COMPARISON: None. FINDINGS: The heart and great vessels are normal and the lungs are satisfactorilyexpanded and clear. The density superimposed upon the right lung baseisalmost certainly due to pectoral muscles. Subcutaneous emphysema persists. ? [facility], Radiant ResultsInft User - 02/16/2020 8:18 AM CDTEXAM: XR CHEST 1 VWHISTORY: ptx COMPARISON: None.FINDINGS:The heart and great vessels are normal and the lungs are satisfactorilyexpanded and clear. The density superimposed upon the right lung base isalmost certainly due to pectoral muscles. Subcutaneous emphysema persists.[facility] [id number] 13:04:00 Test Item Value Reference Range Interpretation Comments TROPONIN I (test 0.003 ng/mL See_Comment [Automated code = 4112411906) message] The system which generated this result transmitted reference range : <=0.034. The reference range was not used to interpret this result as normal/abnormal . LOREN (test code = Equal or Less than LOREN) 0.034 ng/ml---Normal ?Note: Cardiac troponin begins to rise 3-4 hours after the onset of ischemia. Repeat in 4-6 hours if the sample was drawn within 3-4 hours of the onset of the symptom and found normal. Between 0.035 and 0.120 ng/mL--- Borderline. Questionable myocardial injury or necrosis ? ?Note: Serial measurement may be necessary to confirm or exclude the diagnosis of myocardial injury or necrosis; Clinical correlation (symptoms, EKGs, imaging studies, and others) required; Repeat in 4-6 hours if clinically indicated. ? Equal or Higher than 0.121 ng/mL---Abnormal. Myocardial Injury or Necrosis Likely ? Biotin has been reported to cause a negative bias, interpret results relative to patient's use of biotin. ? Lab Interpretation Normal (test code = 20779-7) [facility] (NA, K, CL, CO2, GLUCOSE, BUN, CREATININE, CA)2020-02-16 11:11:00 Test Item Value Reference Range Interpretation Comments NA (test code = 135 mmol/L 135-145 5291368726) K (test code = 4.4 mmol/L 3.5-5 6746060256) CL (test code = 105 mmol/L 98-108 8725881392) CO2 TOTAL (test code = 24 mmol/L 23-31 9855453623) AGAP (test code = 2-16 2788039106) BUN (test code = 58 mg/dL 7-23 H 3847015297) GLUCOSE (test code = 226 mg/dL 70-110 H 9272512923) CREATININE (test code = 1.96 mg/dL 0.6-1.25 H 1810076268) CALCIUM (test code = 8.2 mg/dL 8.6-10.6 L 6463007282) eGFR Calculation mL/min/1.73m2 (Non-) (test code = 4823813194) eGFR Calculation mL/min/1.73m2 () (test code = 9964076219) LOREN (test code = LOREN) Association of Glomerular Filtration Rate (GFR) and Staging of Kidney Disease* + --+ --+ ------+| GFR (mL/min/1.73 m2) ?| With Kidney Damage ?| ?Without Kidney Damage+ --------+ --------+ +| ?>90 ?| ?Stage one ?| ? Normal ?+ ---+ ---+ -------+| ?60-89 ?| ?Stage two ?| ? Decreased GFR ? + --+ --+ ------+| ?30-59 ?| ?Stage three ?| ? Stage three ? + --+ --+ ------+| ?15-29 ?| ?Stage four ? | ? Stage four ?+ ---+ ---+ -------+| ?<15 (or dialysis) ? ?| ?Stage five ? | ? Stage five ?+ ---+ ---+ -------+ *Each stage assumes the associated GFR level has been in effect for at least three months. ?Stages 1 to 5, with or without kidney disease, indicate chronic kidney disease. Notes: Determination of stages one and two (with eGFR >59mL/min/1.73 m2) requires estimation of kidney damage for at least three months as defined by structural or functional abnormalities of the kidney, manifested by either:Pathological abnormalities or Markers of kidney damage (including abnormalities in the composition of the blood or urine or abnormalities in imaging tests). Lab Interpretation Abnormal (test code = 27913-0) [facility] WITH [id number] 10:36:00 Test Item Value Reference Range Interpretation Comments WBC (test code = See_Comment [Automated 6190-2) message] The sy stem which generated this result transmitted reference range : 4.20 - 10.70 10*3/?L. The reference range was not used to interpret this result as normal/abnormal . RBC (test code = See_Comment L [Automated 699-8) message] The sy stem which generated this result transmitted reference range : 4.26 - 5.52 10*6/?L. The reference range was not used to interpret this result as normal/abnormal . HGB (test code = 11.4 g/dL 12.2-16.4 L 718-7) HCT (test code = 33.6 % 38.4-49.3 L 4544-3) MCV (test code = 90.6 fL 81.7-95.6 787-2) MCH (test code = 30.7 pg 26.1-32.7 785-6) MCHC (test code = 33.9 g/dL 31.2-35 786-4) RDW-SD (test code = 45.3 fL 38.5-51.6 64452-3) RDW-CV (test code = 13.8 % 12.1-15.4 788-0) PLT (test code = See_Comment L [Automated 777-3) message] The sy stem which generated this result transmitted reference range : 150 - 328 10*3/ ?L. The reference r susi was not used to interpret this result as normal/abnormal . MPV (test code = 10.1 fL 9.8-13 51822-2) NRBC/100 WBC (test See_Comment [Automat ed code = 0456965812) message] The system which generated this result transmitted reference range : 0.0 - 10.0 /100 WBCs. The refer ence range was not u sed to interpret th is result as normal/abnormal . NRBC x10^3 (test code <0.01 See_Comment [Auto mated = 2015136885) message] The s ystem which generated this result transmitted reference range : 10*3/?L. The reference range was not used to interpret this result as normal/abnormal . GRAN MAT (NEUT) % 70.2 % (test code = 770-8) IMM GRAN % (test code 0.50 % = 6476958197) LYMPH % (test code = 15.7 % 736-9) MONO % (test code = 8.3 % 5905-5) EOS % (test code = 4.8 % 713-8) BASO % (test code = 0.5 % 706-2) GRAN MAT x10^3(ANC) 2.95 10*3/uL 1.99-6.95 (test code = 0639487562) IMM GRAN x10^3 (test <0.03 0-0.06 code = 4308131935) LYMPH x10^3 (test code 0.66 10*3/uL 1.09-3.23 L = 731-0) MONO x10^3 (test code 0.35 10*3/uL 0.36-1.02 L = 742-7) EOS x10^3 (test code = 0.20 10*3/uL 0.06-0.53 711-2) BASO x10^3 (test code <0.03 0.01-0.09 = 704-7) Lab Interpretation Abnormal (test code = 88356-1) [facility] GLUCOSE (AUTOMATED)2020-02-16 05:14:00 Test Item Value Reference Range Interpretation Comments POCT GLU (test code = 272 mg/dL 70-110 H Notifi ed Provider [id number]) Lab Interpretation (test Abnormal code = 09152-0) [facility] GLUCOSE (AUTOMATED)2020-02-16 02:08:00 Test Item Value Reference Range Interpretation Comments POCT GLU (test code = 1074481687) 302 mg/dL 70-110 H Lab Interpretation (test code = Abnormal 97255-4) [facility] GLUCOSE (AUTOMATED)2020-02-15 22:46:00 Test Item Value Reference Range Interpretation Comments POCT GLU (test code = 0681366544) 270 mg/dL 70-110 H Lab Interpretation (test code = Abnormal 94116-7) [facility] [id number] 15:11:50 Somewhat limited examination due to patient positioning. No sonographic evidence of left nephrolithiasis or left hydronephrosis. Images of the right kidney were not able to be obtained due to patientpositioning. Preliminary Report Dictated by Resident: Moise Palm MD., have reviewed this study and agree with the abovereport.HISTORY: JERAMY on possible CKD, s/p trauma . RENAL ULTRASOUND COMPARISON: None. TECHNIQUE: Heterogeneous grayscale and color Doppler ultrasound examinationofthe abdomen with emphasis on the bilateral kidneys was performed. Cineclips were then generated. Of note this, examination is somewhat limiteddue to patient positioning. FINDINGS: RIGHT KIDNEY: The right kidney is not visualized. LEFT KIDNEY: Normal size, contour, and echotexture. ?The left kidneymeasures 9.4 x 4.8 x 5 cm in length (119 ml). No hydronephrosis. [facility], Radiant Results Inft User - 02/15/2020 10:12 AM CDTHISTORY: JERAMY on possible CKD, s/p trauma . RENAL ULTRASOUNDCOMPARISON: None.TECHNIQUE: Heterogeneous grayscale and color Doppler ultrasound examinationof the abdomen with emphasis on the bilateral kidneys was performed. Cineclips were then generated. Of note this, examination is somewhat limiteddue to patient positioning.FINDINGS: RIGHT KIDNEY: The right kidney is not visualized.LEFT K IDNEY: Normal size, contour, and echotexture. The left kidneymeasures 9.4 x 4.8 x 5 cm in length (119 ml). No hydronephrosis.IMPRESSIONSomewhat limited examination due to patient positioning.No sonographic evidence of left nephrolithiasis or left hydronephrosis.Images of the right kidney were not able to be obtained due to patientpositioning.Preliminary Report Dictated by Resident: Marv Butler, Moise Muniz MD., have reviewed this study and agree with the abovereport.[facility]2020-02-15 13:20:00 Test Item Value Reference Range Interpretation Comments POCT GLU (test code = 3822954807) 155 mg/dL 70-110 H Lab Interpretation (test code = Abnormal 20439-7) [facility] [id number] 12:56:56EXAM: XR CHEST 1 VW HISTORY: MV COMPARISON: None. FINDINGS: The heart and great vessels are normal and the lungs remain clear exceptfor a streak of atelectasis in the right midlung laterally. Subcutaneousemphysema persists. ? [facility], Radiant Results Inft User - 02/15/2020 7:58 AM CDTEXAM: XR CHEST 1 VWHISTORY: MV COMPARISON: None.FINDINGS:The heart and great vessels are normal and the lungs remain clear exceptfor a streak of atelectasis in the right midlung laterally. Subcutaneousemphysema persists.[facility]OL[facility] PANEL (NA, K, CL, CO2, GLUCOSE, BUN, CREATININE, CA)2020-02-15 10:15:00 Test Item Value Reference Range Interpretation Comments NA (test code = 134 mmol/L 135-145 L 9909556059) K (test code = 4.6 mmol/L 3.5-5 8456674246) CL (test code = 101 mmol/L 98-108 9548315781) CO2 TOTAL (test code = 24 mmol/L 23-31 2614627644) AGAP (test code = 2-16 4648884475) BUN (test code = 76 mg/dL 7-23 H 5782277852) GLUCOSE (test code = 147 mg/dL 70-110 H 2146270574) CREATININE (test code = 3.26 mg/dL 0.6-1.25 H 8784748799) CALCIUM (test code = 8.1 mg/dL 8.6-10.6 L 4709065617) eGFR Calculation mL/min/1.73m2 (Non-) (test code = 7726312980) eGFR Calculation mL/min/1.73m2 () (test code = 7422502810) LOREN (test code = LOREN) Association of Glomerular Filtration Rate (GFR) and Staging of Kidney Disease* + --+ --+ ------+| GFR (mL/min/1.73 m2) ?| With Kidney Damage ?| ?Without Kidney Damage+ --------+ --------+ +| ?>90 ?| ?Stage one ?| ? Normal ?+ ---+ ---+ -------+| ?60-89 ?| ?Stage two ?| ? Decreased GFR ? + --+ --+ ------+| ?30-59 ?| ?Stage three ?| ? Stage three ? + --+ --+ ------+| ?15-29 ?| ?Stage four ? | ? Stage four ?+ ---+ ---+ -------+| ?<15 (or dialysis) ? ?| ?Stage five ? | ? Stage five ?+ ---+ ---+ -------+ *Each stage assumes the associated GFR level has been in effect for at least three months. ?Stages 1 to 5, with or without kidney disease, indicate chronic kidney disease. Notes: Determination of stages one and two (with eGFR >59mL/min/1.73 m2) requires estimation of kidney damage for at least three months as defined by structural or functional abnormalities of the kidney, manifested by either:Pathological abnormalities or Markers of kidney damage (including abnormalities in the composition of the blood or urine or abnormalities in imaging tests). Lab Interpretation Abnormal (test code = 63909-2) [facility] WITH [id number] 09:36:00 Test Item Value Reference Range Interpretation Comments WBC (test code = See_Comment [Automated 5690-2) message] The sy stem which generated this result transmitted reference range : 4.20 - 10.70 10*3/?L. The reference range was not used to interpret this result as normal/abnormal . RBC (test code = See_Comment L [Automated 789-8) message] The sy stem which generated this result transmitted reference range : 4.26 - 5.52 10*6/?L. The reference range was not used to interpret this result as normal/abnormal . HGB (test code = 10.7 g/dL 12.2-16.4 L 718-7) HCT (test code = 32.1 % 38.4-49.3 L 4544-3) MCV (test code = 92.0 fL 81.7-95.6 787-2) MCH (test code = 30.7 pg 26.1-32.7 785-6) MCHC (test code = 33.3 g/dL 31.2-35 786-4) RDW-SD (test code = 46.5 fL 38.5-51.6 73224-5) RDW-CV (test code = 14.0 % 12.1-15.4 788-0) PLT (test code = See_Comment L [Automated 777-3) message] The sy stem which generated this result transmitted reference range : 150 - 328 10*3/ ?L. The reference r susi was not used to interpret this result as normal/abnormal . MPV (test code = 10.9 fL 9.8-13 66360-7) NRBC/100 WBC (test See_Comment [Automat ed code = 3859116778) message] The system which generated this result transmitted reference range : 0.0 - 10.0 /100 WBCs. The refer ence range was not u sed to interpret th is result as normal/abnormal . NRBC x10^3 (test code <0.01 See_Comment [Auto mated = 9349129768) message] The s ystem which generated this result transmitted reference range : 10*3/?L. The reference range was not used to interpret this result as normal/abnormal . GRAN MAT (NEUT) % 78.7 % (test code = 770-8) IMM GRAN % (test code 0.50 % = 5917054519) LYMPH % (test code = 9.3 % 736-9) MONO % (test code = 8.2 % 5905-5) EOS % (test code = 2.9 % 713-8) BASO % (test code = 0.4 % 706-2) GRAN MAT x10^3(ANC) 4.32 10*3/uL 1.99-6.95 (test code = 7554657050) IMM GRAN x10^3 (test 0.03 10*3/uL 0-0.06 code = 4881150099) LYMPH x10^3 (test code 0.51 10*3/uL 1.09-3.23 L = 731-0) MONO x10^3 (test code 0.45 10*3/uL 0.36-1.02 = 742-7) EOS x10^3 (test code = 0.16 10*3/uL 0.06-0.53 711-2) BASO x10^3 (test code <0.03 0.01-0.09 = 704-7) Lab Interpretation Abnormal (test code = 66578-1) [facility] [id number] 05:53:00 Test Item Value Reference Range Interpretation Comments T. VOL U (test code = 700 mL 2882394110) HR COLLECT (test code = Hours 3967704659) NA URINE (test code = 22 mmol/L 7582335086) NA U/24H (test code = See_Comment L [Auto mated message] 4431091562) The system [employer] generated this result transmit boris reference range : 40 - 220 mmol/24 h rs. The reference r susi was not used to interpret this result as normal/abnormal . Lab Interpretation (test Abnormal code = 65594-3) [facility]2020-02-15 01:57:00 Test Item Value Reference Range Interpretation Comments POCT GLU (test code = 7920974342) 199 mg/dL 70-110 H Lab Interpretation (test code = Abnormal 82123-0) [facility] HospitalCHLORIDE, URINE [id number] 01:52:00 Test Item Value Reference Range Interpretation Comments CL URINE (test code = 5475875316) <15 30-260 L Lab Interpretation (test code = Abnormal 53395-2) [facility] HospitalPOT[facility]SIUM, URINE [id number] 01:39:00 Test Item Value Reference Range Interpretation Comments K URINE (test code = 3301400519) 60.5 mmol/L [facility]IN[facility]IS2020-06-09 01:10:00 Test Item Value Reference Range Interpretation Comments APPEARANCE (test code = Hazy Clear A 0923828762) COLOR (test code = Yellow Yellow 4149229185) PH (test code = 4.8-8.0 5303428347) SP GRAVITY (test code = 1.003-1.030 4745461090) GLU U QUAL (test code = Normal Normal 7952380302) BLOOD (test code = 2+ Negative A 3782161148) KETONES (test code = Negative Negative 5383282255) PROTEIN (test code = Negative Negative 2887-8) UROBILIN (test code = Normal Normal 6144444611) BILIRUBIN (test code = Negative Negative 2702451966) NITRITE (test code = Negative Negative 0756766094) LEUK [place] (test code = Negative Negative 1371443669) RBC/HPF (test code = See_Comment H [Autom ated message] 8372730001) The system [employer] generated this result transmitted ref erence range: 0 - 3 HP F. The reference range was not used to int erpret this result as normal/abnormal . WBC/HPF (test code = See_Comment [Autom ated message] 9341348825) The system [employer] generated this result transmitted ref erence range: 0 - 5 HP F. The reference range was not used to int erpret this result as normal/abnormal . BACTERIA (test code = Negative Negative 2055717052) MUCOUS (test code = Slight Negative LPF A 1966089556) SQ EPITH (test code = <1 See_Comment [Auto mated message] 8367688850) The system [employer] generated this result transmitted ref erence range: <=2 HPF. The reference range was not used to int erpret this result as normal/abnormal . Lab Interpretation (test Abnormal code = 39337-1) [facility], URINE [id number] 23:41:00 Test Item Value Reference Range Interpretation Comments NA URINE (test code = 2983332196) 20 mmol/L [facility])2020-02-14 23:12:00 Test Item Value Reference Range Interpretation Comments POCT GLU (test code = 2882376088) 115 mg/dL 70-110 H Lab Interpretation (test code = Abnormal 77187-0) [facility] GLUCOSE (AUTOMATED)2020-02-14 22:31:00 Test Item Value Reference Range Interpretation Comments POCT GLU (test code = 0222010449) 124 mg/dL 70-110 H Lab Interpretation (test code = Abnormal 16370-3) [facility] [id number] 21:47:22 FINDINGS/IMPRESSION: Right-sided chest tube has been intervally removed. Extensive subcutaneousemphysema throughout the right chest wall and right cervical soft tissuesis redemonstrated. Residual 6 mm pneumothorax over the lateral right lowerlung is suspected but evaluation is suboptimal secondary to s ubcutaneousemphysema resulting in partial obscuration. Attention at follow-up isrecommended. The lungs are otherwise clear. The heart is normal in size. No pleural effusion. Preliminary Report Dictatedby Resident: Estiven Cody I, Crystal Baca MD., have reviewed this study and agree with the abovereport.EXAM: XR CHEST 1 VW HISTORY: chest tube removed COMPARISON: X-ray dated 02/14/2020 [facility], Radiant Results Inft User - 02/14/2020 4:48 PM CDTEXAM:XR CHEST 1 VWHISTORY:chest tube removed COMPARISON:X-ray dated 02/14/2020IMPRESSIONFINDINGS/IMPRESSION: Right-sided chest tube has been intervally removed. Extensive subcutaneousemphysema throughout the right chest wall and right cervical soft tissuesis redemonstrated. Residual 6 mm pneumothorax over the lateral right lowerlung is suspected but evaluation is suboptimal secondary to subcutaneousemphysema resulting in partial obscuration. Attention atfollow-up isrecommended.The lungs are otherwise clear. The heart is normal in size. No pleural effusion.Preliminary Report Dictated by Resident: Crystal Ramos MD., have reviewed this study and agree with the abovereport.[facility] GLUCOSE (AUTOMATED) 2020-02-14 13:14:00 Test Item Value Reference Range Interpretation Comments POCT GLU (test code = 7898384462) 136 mg/dL 70-110 H Lab Interpretation (test code = Abnormal 86862-5) [facility] [id number] 13:02:33EXAM: XR CHEST 1 VW HISTORY: CT COMPARISON: None. FINDINGS: The chest tube draining the pleural space on the right has been slightlyretracted. The lungs are well expanded and clear except for the tiniestapical pneumothorax on the right. The left hemidiaphragm is slightlyelevated. The heart and great vessels are normal. Subcutaneous emphysemapersists on the right. ? [facility], Radiant Results Inft User - 02/14/2020 8:03 AM CDTEXAM: XR CHEST 1 VWHISTORY: CT COMPARISON: None.FINDINGS:The chest tube drainingthe pleural space on the right has been slightlyretracted. The lungs are well expanded and clear except for the tiniestapical pneumothorax on the right. The left hemidiaphragm is slightlyelevated. The heart and great vessels are normal. Subcutaneous emphysemapersists on the right.[facility]OL[facility] PANEL (NA, K, CL, CO2, GLUCOSE, BUN, CREATININE, CA)2020-02-14 09:35:00 Test Item Value Reference Range Interpretation Comments NA (test code = 134 mmol/L 135-145 L 1439891309) K (test code = 4.4 mmol/L 3.5-5 6227477347) CL (test code = 102 mmol/L 98-108 1163478054) CO2 TOTAL (test code = 25 mmol/L 23-31 1839380424) AGAP (test code = 2-16 2649486272) BUN (test code = 65 mg/dL 7-23 H 8671436209) GLUCOSE (test code = 136 mg/dL 70-110 H 7075176400) CREATININE (test code = 4.32 mg/dL 0.6-1.25 H 8863326155) CALCIUM (test code = 7.8 mg/dL 8.6-10.6 L 4336924145) eGFR Calculation mL/min/1.73m2 (Non-) (test code = 5368441721) eGFR Calculation mL/min/1.73m2 () (test code = 9339786186) LOREN (test code = LOREN) Association of Glomerular Filtration Rate (GFR) and Staging of Kidney Disease* + --+ --+ ------+| GFR (mL/min/1.73 m2) ?| With Kidney Damage ?| ?Without Kidney Damage+ --------+ --------+ +| ?>90 ?| ?Stage one ?| ? Normal ?+ ---+ ---+ -------+| ?60-89 ?| ?Stage two ?| ? Decreased GFR ? + --+ --+ ------+| ?30-59 ?| ?Stage three ?| ? Stage three ? + --+ --+ ------+| ?15-29 ?| ?Stage four ? | ? Stage four ?+ ---+ ---+ -------+| ?<15 (or dialysis) ? ?| ?Stage five ? | ? Stage five ?+ ---+ ---+ -------+ *Each stage assumes the associated GFR level has been in effect for at least three months. ?Stages 1 to 5, with or without kidney disease, indicate chronic kidney disease. Notes: Determination of stages one and two (with eGFR >59mL/min/1.73 m2) requires estimation of kidney damage for at least three months as defined by structural or functional abnormalities of the kidney, manifested by either:Pathological abnormalities or Markers of kidney damage (including abnormalities in the composition of the blood or urine or abnormalities in imaging tests). Lab Interpretation Abnormal (test code = 03665-7) [facility] WITH [id number] 09:15:00 Test Item Value Reference Range Interpretation Comments WBC (test code = See_Comment [Automated 1790-2) message] The sy stem which generated this result transmitted reference range : 4.20 - 10.70 10*3/?L. The reference range was not used to interpret this result as normal/abnormal . RBC (test code = See_Comment L [Automated 429-8) message] The sy stem which generated this result transmitted reference range : 4.26 - 5.52 10*6/?L. The reference range was not used to interpret this result as normal/abnormal . HGB (test code = 10.7 g/dL 12.2-16.4 L 718-7) HCT (test code = 32.2 % 38.4-49.3 L 4544-3) MCV (test code = 93.3 fL 81.7-95.6 787-2) MCH (test code = 31.0 pg 26.1-32.7 785-6) MCHC (test code = 33.2 g/dL 31.2-35 786-4) RDW-SD (test code = 47.9 fL 38.5-51.6 29872-7) RDW-CV (test code = 14.0 % 12.1-15.4 788-0) PLT (test code = See_Comment L [Automated 777-3) message] The sy stem which generated this result transmitted reference range : 150 - 328 10*3/ ?L. The reference r susi was not used to interpret this result as normal/abnormal . MPV (test code = 10.5 fL 9.8-13 14889-6) NRBC/100 WBC (test See_Comment [Automat ed code = 3062657014) message] The system which generated this result transmitted reference range : 0.0 - 10.0 /100 WBCs. The refer ence range was not u sed to interpret th is result as normal/abnormal . NRBC x10^3 (test code <0.01 See_Comment [Auto mated = 3438156077) message] The s ystem which generated this result transmitted reference range : 10*3/?L. The reference range was not used to interpret this result as normal/abnormal . GRAN MAT (NEUT) % 75.0 % (test code = 770-8) IMM GRAN % (test code 0.60 % = 7774804138) LYMPH % (test code = 13.3 % 736-9) MONO % (test code = 7.7 % 5905-5) EOS % (test code = 3.0 % 713-8) BASO % (test code = 0.4 % 706-2) GRAN MAT x10^3(ANC) 4.02 10*3/uL 1.99-6.95 (test code = 4135337486) IMM GRAN x10^3 (test 0.03 10*3/uL 0-0.06 code = 6386574950) LYMPH x10^3 (test code 0.71 10*3/uL 1.09-3.23 L = 731-0) MONO x10^3 (test code 0.41 10*3/uL 0.36-1.02 = 742-7) EOS x10^3 (test code = 0.16 10*3/uL 0.06-0.53 711-2) BASO x10^3 (test code <0.03 0.01-0.09 = 704-7) Lab Interpretation Abnormal (test code = 57053-5) [facility] [id number] 05:08:00 Test Item Value Reference Range Interpretation Comments CREAT U (test code = 7790595107) 226.2 mg/dL [facility]2020-02-14 01:54:00 Test Item Value Reference Range Interpretation Comments POCT GLU (test code = 5782172723) 173 mg/dL 70-110 H Lab Interpretation (test code = Abnormal 18850-5) [facility] METABOLIC PANEL (NA, K, CL, CO2, GLUCOSE, BUN, CREATININE, CA)2020-02-14 00:55:00 Test Item Value Reference Range Interpretation Comments NA (test code = 136 mmol/L 135-145 9702511563) K (test code = 4.8 mmol/L 3.5-5 5438761574) CL (test code = 101 mmol/L 98-108 0070628632) CO2 TOTAL (test code = 26 mmol/L 23-31 6122076490) AGAP (test code = 2-16 3705366575) BUN (test code = 64 mg/dL 7-23 H 6405568079) GLUCOSE (test code = 171 mg/dL 70-110 H 3956599784) CREATININE (test code = 4.30 mg/dL 0.6-1.25 H 6929020068) CALCIUM (test code = 8.5 mg/dL 8.6-10.6 L 5642230499) eGFR Calculation mL/min/1.73m2 (Non-) (test code = 1231917605) eGFR Calculation mL/min/1.73m2 () (test code = 2922104987) LOREN (test code = LOREN) Association of Glomerular Filtration Rate (GFR) and Staging of Kidney Disease* + --+ --+ ------+| GFR (mL/min/1.73 m2) ?| With Kidney Damage ?| ?Without Kidney Damage+ --------+ --------+ +| ?>90 ?| ?Stage one ?| ? Normal ?+ ---+ ---+ -------+| ?60-89 ?| ?Stage two ?| ? Decreased GFR ? + --+ --+ ------+| ?30-59 ?| ?Stage three ?| ? Stage three ? + --+ --+ ------+| ?15-29 ?| ?Stage four ? | ? Stage four ?+ ---+ ---+ -------+| ?<15 (or dialysis) ? ?| ?Stage five ? | ? Stage five ?+ ---+ ---+ -------+ *Each stage assumes the associated GFR level has been in effect for at least three months. ?Stages 1 to 5, with or without kidney disease, indicate chronic kidney disease. Notes: Determination of stages one and two (with eGFR >59mL/min/1.73 m2) requires estimation of kidney damage for at least three months as defined by structural or functional abnormalities of the kidney, manifested by either:Pathological abnormalities or Markers of kidney damage (including abnormalities in the composition of the blood or urine or abnormalities in imaging tests). Lab Interpretation Abnormal (test code = 06527-7) [facility]2020-02-13 22:34:00 Test Item Value Reference Range Interpretation Comments POCT GLU (test code = 4353341780) 170 mg/dL 70-110 H Lab Interpretation (test code = Abnormal 30593-6) [facility] [id number] 21:02:13 FINDINGS/IMPRESSION: The right chest tube is unchanged in position. No residual pneumothoraxnoted. Worsening of the right chest wall subcutaneous emphysema. The lungs are clear. No pleural effusion or pneumothorax is seen. The heartis normal in size. No acute bony abnormality. Preliminary Report Dictated by Resident: Crystal Mendosa MD., have reviewed this study and agree with the abovereport. PROCEDURE: XR CHEST 1 VW CLINICAL INDICATION: rib fx COMPARISON: Chestx-ray dated 02/12/2020. [facility], Radiant Results Inft User - 02/13/2020 4:03 PM CDTPROCEDURE: XR CHEST 1 VWCLINICAL INDICATION: rib fx COMPARISON: Chest x-ray dated 02/12/2020.IMPRESSIONFINDINGS/IMPRESSION:The right chest tube is unchanged in position. No residual pneumothoraxnoted. Worsening of the right chest wall subcutaneous emphysema.The lungs are clear. No pleural effusion or pneumothorax is seen. Theheartis normal in size.No acute bony abnormality.Preliminary Report Dictated by Resident: Sanjiv Merino, Crystal Gastelum MD., have reviewed this study and agree with the abovereport.[facility] 2020-02-13 17:49:00 Test Item Value Reference Range Interpretation Comments POCT GLU (test code = 8596275720) 185 mg/dL 70-110 H Lab Interpretation (test code = Abnormal 37141-7) [facility] (NA, K, CL, CO2, GLUCOSE, BUN, CREATININE, CA)2020-02-13 16:05:00 Test Item Value Reference Range Interpretation Comments NA (test code = 136 mmol/L 135-145 1805751450) K (test code = 4.7 mmol/L 3.5-5 4592009311) CL (test code = 102 mmol/L 98-108 1161122388) CO2 TOTAL (test code = 26 mmol/L 23-31 2915710093) AGAP (test code = 2-16 8585738790) BUN (test code = 54 mg/dL 7-23 H 7922316343) GLUCOSE (test code = 181 mg/dL 70-110 H 7087091985) CREATININE (test code = 4.11 mg/dL 0.6-1.25 H 4817700392) CALCIUM (test code = 8.5 mg/dL 8.6-10.6 L 3692344150) eGFR Calculation mL/min/1.73m2 (Non-) (test code = 0661294085) eGFR Calculation mL/min/1.73m2 () (test code = 0101814473) LOREN (test code = LOREN) Association of Glomerular Filtration Rate (GFR) and Staging of Kidney Disease* + --+ --+ ------+| GFR (mL/min/1.73 m2) ?| With Kidney Damage ?| ?Without Kidney Damage+ --------+ --------+ +| ?>90 ?| ?Stage one ?| ? Normal ?+ ---+ ---+ -------+| ?60-89 ?| ?Stage two ?| ? Decreased GFR ? + --+ --+ ------+| ?30-59 ?| ?Stage three ?| ? Stage three ? + --+ --+ ------+| ?15-29 ?| ?Stage four ? | ? Stage four ?+ ---+ ---+ -------+| ?<15 (or dialysis) ? ?| ?Stage five ? | ? Stage five ?+ ---+ ---+ -------+ *Each stage assumes the associated GFR level has been in effect for at least three months. ?Stages 1 to 5, with or without kidney disease, indicate chronic kidney disease. Notes: Determination of stages one and two (with eGFR >59mL/min/1.73 m2) requires estimation of kidney damage for at least three months as defined by structural or functional abnormalities of the kidney, manifested by either:Pathological abnormalities or Markers of kidney damage (including abnormalities in the composition of the blood or urine or abnormalities in imaging tests). Lab Interpretation Abnormal (test code = 46052-1) [facility] WITH [id number] 16:01:00 Test Item Value Reference Range Interpretation Comments WBC (test code = See_Comment [Automated 7959-2) message] The sy stem which generated this result transmitted reference range : 4.20 - 10.70 10*3/?L. The reference range was not used to interpret this result as normal/abnormal . RBC (test code = See_Comment L [Automated 500-8) message] The sy stem which generated this result transmitted reference range : 4.26 - 5.52 10*6/?L. The reference range was not used to interpret this result as normal/abnormal . HGB (test code = 13.2 g/dL 12.2-16.4 718-7) HCT (test code = 39.4 % 38.4-49.3 4544-3) MCV (test code = 92.9 fL 81.7-95.6 787-2) MCH (test code = 31.1 pg 26.1-32.7 785-6) MCHC (test code = 33.5 g/dL 31.2-35 786-4) RDW-SD (test code = 48.3 fL 38.5-51.6 84016-4) RDW-CV (test code = 14.2 % 12.1-15.4 788-0) PLT (test code = See_Comment [Automated 777-3) message] The sy stem which generated this result transmitted reference range : 150 - 328 10*3/ ?L. The reference r susi was not used to interpret this result as normal/abnormal . MPV (test code = 11.1 fL 9.8-13 01601-6) NRBC/100 WBC (test See_Comment [Automat ed code = 3428093231) message] The system which generated this result transmitted reference range : 0.0 - 10.0 /100 WBCs. The refer ence range was not u sed to interpret th is result as normal/abnormal . NRBC x10^3 (test code <0.01 See_Comment [Auto mated = 7174661300) message] The s ystem which generated this result transmitted reference range : 10*3/?L. The reference range was not used to interpret this result as normal/abnormal . GRAN MAT (NEUT) % 78.8 % (test code = 770-8) IMM GRAN % (test code 0.40 % = 3446575440) LYMPH % (test code = 12.4 % 736-9) MONO % (test code = 6.5 % 5905-5) EOS % (test code = 1.4 % 713-8) BASO % (test code = 0.5 % 706-2) GRAN MAT x10^3(ANC) 6.28 10*3/uL 1.99-6.95 (test code = 5886890955) IMM GRAN x10^3 (test 0.03 10*3/uL 0-0.06 code = 9212138341) LYMPH x10^3 (test code 0.99 10*3/uL 1.09-3.23 L = 731-0) MONO x10^3 (test code 0.52 10*3/uL 0.36-1.02 = 742-7) EOS x10^3 (test code = 0.11 10*3/uL 0.06-0.53 711-2) BASO x10^3 (test code 0.04 10*3/uL 0.01-0.09 = 704-7) Lab Interpretation Abnormal (test code = 43490-0) [facility] GLUCOSE (AUTOMATED)2020-02-13 14:49:00 Test Item Value Reference Range Interpretation Comments POCT GLU (test code = 6083731575) 188 mg/dL 70-110 H Lab Interpretation (test code = Abnormal 10659-3) [facility] GLUCOSE (AUTOMATED)2020-02-13 02:44:00 Test Item Value Reference Range Interpretation Comments POCT GLU (test code = 5451628419) 160 mg/dL 70-110 H Lab Interpretation (test code = Abnormal 15580-7) [facility] GLUCOSE (AUTOMATED)2020-02-12 18:57:00 Test Item Value Reference Range Interpretation Comments POCT GLU (test code = 2566527824) 172 mg/dL 70-110 H Lab Interpretation (test code = Abnormal 53165-3) [facility] [id number] 17:57:29 Unchanged right chest tube without residual pneumothorax seen. Mild increase in the right subcutaneous emphysema. Non displaced right sided rib fractures. Preliminary Report Dictated by Resident: Crystal Mendosa MD., have reviewed this study and agree with the abovereport.PROCEDURE: XR CHEST 1 VW CLINICAL INDICATION: CT COMPARISON: Chest x-ray dated 02/11/2020. FINDINGS: The right chest tube is unchanged in position. No residual pneumothorax orpleural effusion identified. The lungs are clear. The heart is normal in size. Right sided 4th, 8th, and 9th rib fractures without displacement are seen.Chest wall subcutaneous emphysema is present, increased in comparison toprior. [facility], Radiant Results Inft User - 02/12/2020 12:58 PM CDTPROCEDURE: XR CHEST 1 VWCLINICAL INDICATION: CT COMPARISON: Chest x-ray dated 02/11/2020.FINDINGS:The right chest tube is unchanged in position. No residual pneumothorax orpleural effusion identified.The lungs are clear. The heart is normal in size.Right sided 4th, 8th, and 9th rib fractures without displacement are seen.Chest wall subcutaneous emphysema is present, increased in comparison toprior.IMPRESSIONUnchanged right chest tube without residual pneumothorax seen.Mild increase in the right subcutaneous emphysema.Non displaced right sided rib fractures.Preliminary Report Dictated by Resident: Sanjiv Merino,Crystal Gastelum MD., have reviewed this study and agree with the abovereport.[facility]2020-02-12 13:36:00 Test Item Value Reference Range Interpretation Comments POCT GLU (test code = 4827962365) 232 mg/dL 70-110 H Lab Interpretation (test code = Abnormal 43255-9) [facility] METABOLIC PANEL (NA, K, CL, CO2, GLUCOSE, BUN, CREATININE, CA)2020-02-12 10:32:00 Test Item Value Reference Range Interpretation Comments NA (test code = 137 mmol/L 135-145 0541727297) K (test code = 5.0 mmol/L 3.5-5 7095381331) CL (test code = 104 mmol/L 98-108 5529503310) CO2 TOTAL (test code = 25 mmol/L 23-31 4872252288) AGAP (test code = 2-16 3686835986) BUN (test code = 30 mg/dL 7-23 H 7086972503) GLUCOSE (test code = 178 mg/dL 70-110 H 2943947358) CREATININE (test code = 1.71 mg/dL 0.6-1.25 H 2937527516) CALCIUM (test code = 8.5 mg/dL 8.6-10.6 L 0494721885) eGFR Calculation mL/min/1.73m2 (Non-) (test code = 3168698016) eGFR Calculation mL/min/1.73m2 () (test code = 7252370895) LOREN (test code = LOREN) Association of Glomerular Filtration Rate (GFR) and Staging of Kidney Disease* + --+ --+ ------+| GFR (mL/min/1.73 m2) ?| With Kidney Damage ?| ?Without Kidney Damage+ --------+ --------+ +| ?>90 ?| ?Stage one ?| ? Normal ?+ ---+ ---+ -------+| ?60-89 ?| ?Stage two ?| ? Decreased GFR ? + --+ --+ ------+| ?30-59 ?| ?Stage three ?| ? Stage three ? + --+ --+ ------+| ?15-29 ?| ?Stage four ? | ? Stage four ?+ ---+ ---+ -------+| ?<15 (or dialysis) ? ?| ?Stage five ? | ? Stage five ?+ ---+ ---+ -------+ *Each stage assumes the associated GFR level has been in effect for at least three months. ?Stages 1 to 5, with or without kidney disease, indicate chronic kidney disease. Notes: Determination of stages one and two (with eGFR >59mL/min/1.73 m2) requires estimation of kidney damage for at least three months as defined by structural or functional abnormalities of the kidney, manifested by either:Pathological abnormalities or Markers of kidney damage (including abnormalities in the composition of the blood or urine or abnormalities in imaging tests). Lab Interpretation Abnormal (test code = 76198-5) [facility] 10:31:00 Test Item Value Reference Range Interpretation Comments PHOSPHORUS (test code = 5686481061) 5.4 mg/dL 2.5-5 H Lab Interpretation (test code = Abnormal 94150-7) [facility] WITH [id number] 10:10:00 Test Item Value Reference Range Interpretation Comments WBC (test code = See_Comment [Automated 9390-2) message] The sy stem which generated this result transmitted reference range : 4.20 - 10.70 10*3/?L. The reference range was not used to interpret this result as normal/abnormal . RBC (test code = See_Comment L [Automated 189-8) message] The sy stem which generated this result transmitted reference range : 4.26 - 5.52 10*6/?L. The reference range was not used to interpret this result as normal/abnormal . HGB (test code = 13.0 g/dL 12.2-16.4 718-7) HCT (test code = 38.6 % 38.4-49.3 4544-3) MCV (test code = 91.5 fL 81.7-95.6 787-2) MCH (test code = 30.8 pg 26.1-32.7 785-6) MCHC (test code = 33.7 g/dL 31.2-35 786-4) RDW-SD (test code = 47.4 fL 38.5-51.6 50629-8) RDW-CV (test code = 14.3 % 12.1-15.4 788-0) PLT (test code = See_Comment [Automated 777-3) message] The sy stem which generated this result transmitted reference range : 150 - 328 10*3/ ?L. The reference r susi was not used to interpret this result as normal/abnormal . MPV (test code = 10.8 fL 9.8-13 18069-3) NRBC/100 WBC (test See_Comment [Automat ed code = 0042334729) message] The system which generated this result transmitted reference range : 0.0 - 10.0 /100 WBCs. The refer ence range was not u sed to interpret th is result as normal/abnormal . NRBC x10^3 (test code <0.01 See_Comment [Auto mated = 6453564085) message] The s ystem which generated this result transmitted reference range : 10*3/?L. The reference range was not used to interpret this result as normal/abnormal . GRAN MAT (NEUT) % 79.1 % (test code = 770-8) IMM GRAN % (test code 0.40 % = 8299202125) LYMPH % (test code = 9.6 % 736-9) MONO % (test code = 9.5 % 5905-5) EOS % (test code = 0.9 % 713-8) BASO % (test code = 0.5 % 706-2) GRAN MAT x10^3(ANC) 6.24 10*3/uL 1.99-6.95 (test code = 8656393295) IMM GRAN x10^3 (test 0.03 10*3/uL 0-0.06 code = 3956786921) LYMPH x10^3 (test code 0.76 10*3/uL 1.09-3.23 L = 731-0) MONO x10^3 (test code 0.75 10*3/uL 0.36-1.02 = 742-7) EOS x10^3 (test code = 0.07 10*3/uL 0.06-0.53 711-2) BASO x10^3 (test code 0.04 10*3/uL 0.01-0.09 = 704-7) Lab Interpretation Abnormal (test code = 99005-3) [facility] GLUCOSE (AUTOMATED)2020-02-12 03:58:00 Test Item Value Reference Range Interpretation Comments POCT GLU (test code = 9665133199) 165 mg/dL 70-110 H Lab Interpretation (test code = Abnormal 23048-8) [facility] GLUCOSE (AUTOMATED)2020-02-12 02:33:00 Test Item Value Reference Range Interpretation Comments POCT GLU (test code = 170 mg/dL 70-110 H Notifi ed Provider [id number]) Lab Interpretation (test Abnormal code = 36571-4) [facility] [id number] 01:02:10 Interval advancement of right chest tube with resolution of rightpneumothorax. Right- sided chest wall emphysema persists. Preliminary Report Dictated by Resident: Moraima Taylor MD.,have reviewed this study and agree with theabove report.EXAM: XR CHEST 1 VW CLINICAL INDICATION: chest tube COMPARISON: 02/11/2020 FINDINGS: Interval advancement of a right chest tube. The lungs are well-expanded andclear without focal consolidation or pleural effusion. No residualpneumothorax is identified. The cardiac silhouette is normal in size. The aorta is tortuous. Rib fractures, better evaluated on the prior CT. [facility], Radiant Results Inft User - 02/11/2020 8:03 PM CDTEXAM: XR CHEST 1 VWCLINICAL INDICATION: chest tube COMPARISON: 02/11/2020FINDINGS:Interval advancement of a right chest tube. Thelungs are well-expanded andclear without focal consolidation or pleural effusion. No residualpneumothorax is identified.The cardiac silhouette is normal in size. The aorta is tortuous.Rib fractures, bet ter evaluated on the prior CT.IMPRESSIONInterval advancement of right chest tube with resolution of rightpneumothorax. Right-sided chest wall emphysema persists.Preliminary Report Dictated by Resident:Moraima Santana MD., have reviewed this study and agree with theabove report.[facility] [id number] 21:34:22Cheryl Hughes MD ? ? 02/11/2020 ?4:34 PMCritical CarePerformed by: Cheryl Hughes MDAuthorized by: Cheryl Hughes MD Critical care provider statement: ?Critical care time (minutes): ?60 ?Critical care was necessary to treat or prevent imminent or life-threatening deterioration of the following conditions: ?Trauma ?Critical care was time spent personally by me on the following activities: ?Blood draw for specimens, development of treatment plan with patient or surrogate, discussions with consultants, discussions with primary provider, evaluation of patient's response to treatment, examination of patient, pulse oximetry, ordering and review of radiographic studies, ordering and review of laboratory studies and ordering and performing treatments and interventionsNacogdoches Memorial HospitalCOVID- 19 (ID NOW RAPID TESTING)2020-02-11 18:06:00 Test Item Value Reference Range Interpretation Comments SARS-CoV-2 Rapid ID NOW Not Detected Not Detected (test code = 27106-6) LOREN (test code = LOREN) ID NOW COVID-19 Assay is an isothermal nucleic acid amplification test intended for the qualitative detection of nucleic acid from SARS-CoV-2 viral RNA in nasopharyngeal (DIE CASTER) specimens. It is used under Emergency Use Authorization (EUA) by FDA. The limit of detection (LOD) of the assay is 125 Genome Equivalents/mL. A positive result is indicative of the presence of SARS-CoV-2 RNA. ?Clinical correlation with patient history and other diagnostic information is necessary to determine patient infection status. A negative (Not Detected) result does not preclude SARS-CoV-2 infection. In patients with clinical symptoms and other tests that are consistent with SARS-CoV-2 infection, negative results should be treated as presumptive negative and a new specimen should be tested with alternative PCR molecular test. Invalid: Please collect a new specimen for repeat patient testing if clinically indicated. Lab Interpretation Normal (test code = 69703-6) [facility] HospitalCT [facility]MA THORACIC SPINE WO [id number] 18:01:27 No acute intracranial abnormality. No fracture or traumatic malalignment of the cervical, thoracic or lumbarspine. 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 Partially visualized large right pneumothorax. At the time of dictation, the treating team is aware of and treating thepneumothoraxCT TRAUMA CERVICAL SPINE WO CONTRAST,CT TRAUMA LUMBAR SPINE WO CONTRAST,CT TRAUMA THORACIC SPINE WO CONTRAST,CT TRAUMA HEAD WO CONTRAST HISTORY: Male 69 years Polytrauma, critical, head/C-spine injury suspectedCT TRAUMA PANEL (FALL >20 FT WITH OBVIOUS SERIOUS INJURIES) COMPARISON: None TECHNIQUE: Routine CT head and cervical spine were obtained without IVcontrast. CT thoracolumbar spine were reconstructed from thecontrast- enhanced CT abdomen/pelvis studies. FINDINGS: CT head: The ventricles and cerebral sulci are normal in caliber and configuration.No hydrocephalus, midline shift or pathological extra-axial fluidcollection is present. The basal cisterns are unremarkable. No acute intracranial hemorrhage or mass effect is present. The torres-whitematter differentiation is preserved. A small, remote lacunar infarct isseen in the right caudate body. No additional parenchymal attenuationabnormality is present. The calvarium and skull baseare unremarkable. The mastoid air cells andvisualized paranasal air sinuses are clear. CT cervical spine: The vertebral bodies are normal in height and in normal alignment. No facetfracture or subluxation is present. A well-corticated, chronic, nonunitedfracture of the C7 spinous process is incidentally noted. The craniocervical junction is intact. The prevertebral soft tissues areunremarkable. Incidental note is made of developmental incomplete fusion of the Q3vlnhkovvu arch. Multilevel mild to moderate degenerative changes are most pronounced at theC7-T1 level. CT thoracic spine: The vertebral bodies are normal in height and in normal alignment. No facetfracture or subluxation is present. Mild levocurvature is noted. There are thin, bridging syndesmophytes throughout the thoracic spine fromT3-T12. At least partial osseous fusion across the intervertebral discspaces is seen at T3-T4 and from T5-T8. A large right-sided pneumothorax is partially visualized. Moderatecentrilobular emphysematous kaelyn nges are seen in the visualized lungs. CT lumbar spine: The vertebral bodies are normal in height and in normal alignment. No facetfracture or subluxation is present. 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 Bridging syndesmophytes are noted throughout the lumbarspine. There iscomplete osseous fusion across the sacroiliac joints. [facility], Radiant Results Inft User- 02/11/2020 1:02 PM CDTCT TRAUMA CERVICAL SPINE WO CONTRAST,CT TRAUMA LUMBAR SPINE WO CONTRAST,CT TRAUMA THORACIC SPINE WO CONTRAST,CT TRAUMA HEAD WO CONTRASTHISTORY: Male 69 years Polytrauma, critical, head/C-spine injury suspectedCT TRAUMA PANEL (FALL >20 FT WITH OBVIOUS SERIOUS INJURIES)COMPARIS ON: NoneTECHNIQUE: Routine CT head and cervical spine were obtained without IVcontrast. CT thoracolumbar spine were reconstructed from thecontrast-enhanced CT abdomen/pelvis studies.FINDINGS:CT head:The ventricles and cerebral sulci are normal in caliber and configuration.No hydrocephalus, midline shift or pathological extra-axial fluidcollection is present. The basal cisterns are unremarkable.No acute intracranial hemorrhage or mass effect is present. The torres-whitematter differentiation is preserved. A small, remote lacunar infarct isseen in the right caudate body. No additional parenchymal attenu ationabnormality is present.The calvarium and skull base are unremarkable. The mastoid air cells andvisualized paranasal air sinuses are clear.CT cervical spine:The vertebral bodies are normal in height and in normal alignment. No facetfracture or subluxation is present. A well-corticated, chronic, non unitedfracture of the C7 spinous process is incidentally noted.The craniocervical junction is intact. The prevertebral soft tissues areunremarkable.Incidental note is made of developmental incomplete fusion of the [id number] arch.Multilevel mild to moderate degenerative changes are most pronounced attheC7-T1 level.CT thoracic spine:The vertebral bodies are normal in height and in normal alignment. No facetfracture or subluxation is present. Mild levocurvature is noted.There are thin, bridging syndesmophytes throughout the thoracic spine fromT3-T12. At least partial osseous fusion across the interv ertebral discspaces is seen at T3-T4 and from T5-T8.A large right-sided pneumothorax is partially visualized. Moderatecentrilobular emphysematous changes are seen in the visualized lungs.CT lumbar spine:The vertebral bodies are normal in height and in normal alignment. No facetfracture or subluxation is present. 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 There iscomplete osseous fusion across the sacroiliac joints.IMPRESSIONNo acute intracranial abnormality.No fracture or traumatic malalignment of thecervical, thoracic or lumbarspine. 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 [facility] HospitalCT TRAU[facility] LUM[facility] SPINE WO [id number] 18:01:27 No acute intracranial abnormality. No fracture or traumatic malalignment of the cervical, thoracic or lumbarspine. 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 Partially visualized large right pneumothorax. At the time of dictation, the treating team is aware of and treating thepneumothoraxCT TRAUMA CERVICAL SPINE WO CONTRAST,CT TRAUMA LUMBAR SPINE WO CONTRAST,CT TRAUMA THORACIC SPINE WO CONTRAST,CT TRAUMA HEAD WO CONTRAST HISTORY: Male 69 years Polytrauma, critical, head/C-spine injury suspectedCT TRAUMA PANEL (FALL >20 FT WITH OBVIOUS SERIOUS INJURIES) COMPARISON: None TECHNIQUE: Routine CT head and cervical spine were obtained without IVcontrast. CT thoracolumbar spine were reconstructed from thecontrast- enhanced CT abdomen/pelvis studies. FINDINGS: CT head: The ventricles and cerebral sulci are normal in caliber and configuration.No hydrocephalus, midline shift or pathological extra-axial fluidcollection is present. The basal cisterns are unremarkable. No acute intracranial hemorrhage or mass effect is present. The torres-whitematter differentiation is preserved. A small, remote lacunar infarct isseen in the right caudate body. No additional parenchymal attenuationabnormality is present. The calvarium and skull baseare unremarkable. The mastoid air cells andvisualized paranasal air sinuses are clear. CT cervical spine: The vertebral bodies are normal in height and in normal alignment. No facetfracture or subluxation is present. A well-corticated, chronic, nonunitedfracture of the C7 spinous process is incidentally noted. The craniocervical junction is intact. The prevertebral soft tissues areunremarkable. Incidental note is made of developmental incomplete fusion of the T1ctqexjdzx arch. Multilevel mild to moderate degenerative changes are most pronounced at theC7-T1 level. CT thoracic spine: The vertebral bodies are normal in height and in normal alignment. No facetfracture or subluxation is present. Mild levocurvature is noted. There are thin, bridging syndesmophytes throughout the thoracic spine fromT3-T12. At least partial osseous fusion across the intervertebral discspaces is seen at T3-T4 and from T5-T8. A large right-sided pneumothorax is partially visualized. Moderatecentrilobular emphysematous kaelyn nges are seen in the visualized lungs. CT lumbar spine: The vertebral bodies are normal in height and in normal alignment. No facetfracture or subluxation is present. 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 Bridging syndesmophytes are noted throughout the lumbarspine. There iscomplete osseous fusion across the sacroiliac joints. [facility], Radiant Results Inft User- 02/11/2020 1:02 PM CDTCT TRAUMA CERVICAL SPINE WO CONTRAST,CT TRAUMA LUMBAR SPINE WO CONTRAST,CT TRAUMA THORACIC SPINE WO CONTRAST,CT TRAUMA HEAD WO CONTRASTHISTORY: Male 69 years Polytrauma, critical, head/C-spine injury suspectedCT TRAUMA PANEL (FALL >20 FT WITH OBVIOUS SERIOUS INJURIES)COMPARIS ON: NoneTECHNIQUE: Routine CT head and cervical spine were obtained without IVcontrast. CT thoracolumbar spine were reconstructed from thecontrast-enhanced CT abdomen/pelvis studies.FINDINGS:CT head:The ventricles and cerebral sulci are normal in caliber and configuration.No hydrocephalus, midline shift or pathological extra-axial fluidcollection is present. The basal cisterns are unremarkable.No acute intracranial hemorrhage or mass effect is present. The torres-whitematter differentiation is preserved. A small, remote lacunar infarct isseen in the right caudate body. No additional parenchymal attenu ationabnormality is present.The calvarium and skull base are unremarkable. The mastoid air cells andvisualized paranasal air sinuses are clear.CT cervical spine:The vertebral bodies are normal in height and in normal alignment. No facetfracture or subluxation is present. A well-corticated, chronic, non unitedfracture of the C7 spinous process is incidentally noted.The craniocervical junction is intact. The prevertebral soft tissues areunremarkable.Incidental note is made of developmental incomplete fusion of the [id number] arch.Multilevel mild to moderate degenerative changes are most pronounced attheC7-T1 level.CT thoracic spine:The vertebral bodies are normal in height and in normal alignment. No facetfracture or subluxation is present. Mild levocurvature is noted.There are thin, bridging syndesmophytes throughout the thoracic spine fromT3-T12. At least partial osseous fusion across the interv ertebral discspaces is seen at T3-T4 and from T5-T8.A large right-sided pneumothorax is partially visualized. Moderatecentrilobular emphysematous changes are seen in the visualized lungs.CT lumbar spine:The vertebral bodies are normal in height and in normal alignment. No facetfracture or subluxation is present. 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 There iscomplete osseous fusion across the sacroiliac joints.IMPRESSIONNo acute intracranial abnormality.No fracture or traumatic malalignment of thecervical, thoracic or lumbarspine. 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 [facility] HospitalCT TRAUMA HEAD WO CONTRAST 2020-02-11 18:01:27 No acute intracranial abnormality. No fracture or traumatic malalignment of the cervical, thoracic or lumbarspine. 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 Partially visualized large right pneumothorax. At the time of dictation, the treating team is aware of and treating thepneumothoraxCT TRAUMA CERVICAL SPINE WO CONTRAST,CT TRAUMA LUMBAR SPINE WO CONTRAST,CT TRAUMA THORACIC SPINE WO CONTRAST,CT TRAUMA HEAD WO CONTRAST HISTORY: Male 69 years Polytrauma, critical, head/C-spine injury suspectedCT TRAUMA PANEL (FALL >20 FT WITH OBVIOUS SERIOUS INJURIES) COMPARISON: None TECHNIQUE: Routine CT head and cervical spine were obtained without IVcontrast. CT thoracolumbar spine were reconstructed from thecontrast- enhanced CT abdomen/pelvis studies. FINDINGS: CT head: The ventricles and cerebral sulci are normal in caliber and configuration.No hydrocephalus, midline shift or pathological extra-axial fluidcollection is present. The basal cisterns are unremarkable. No acute intracranial hemorrhage or mass effect is present. The torres-whitematter differentiation is preserved. A small, remote lacunar infarct isseen in the right caudate body. No additional parenchymal attenuationabnormality is present. The calvarium and skull baseare unremarkable. The mastoid air cells andvisualized paranasal air sinuses are clear. CT cervical spine: The vertebral bodies are normal in height and in normal alignment. No facetfracture or subluxation is present. A well-corticated, chronic, nonunitedfracture of the C7 spinous process is incidentally noted. The craniocervical junction is intact. The prevertebral soft tissues areunremarkable. Incidental note is made of developmental incomplete fusion of the G1cbozqetwr arch. Multilevel mild to moderate degenerative changes are most pronounced at theC7-T1 level. CT thoracic spine: The vertebral bodies are normal in height and in normal alignment. No facetfracture or subluxation is present. Mild levocurvature is noted. There are thin, bridging syndesmophytes throughout the thoracic spine fromT3-T12. At least partial osseous fusion across the intervertebral discspaces is seen at T3-T4 and from T5-T8. A large right-sided pneumothorax is partially visualized. Moderatecentrilobular emphysematous kaelyn nges are seen in the visualized lungs. CT lumbar spine: The vertebral bodies are normal in height and in normal alignment. No facetfracture or subluxation is present. 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 Bridging syndesmophytes are noted throughout the lumbarspine. There iscomplete osseous fusion across the sacroiliac joints. [facility], Radiant Results Inft User- 02/11/2020 1:02 PM CDTCT TRAUMA CERVICAL SPINE WO CONTRAST,CT TRAUMA LUMBAR SPINE WO CONTRAST,CT TRAUMA THORACIC SPINE WO CONTRAST,CT TRAUMA HEAD WO CONTRASTHISTORY: Male 69 years Polytrauma, critical, head/C-spine injury suspectedCT TRAUMA PANEL (FALL >20 FT WITH OBVIOUS SERIOUS INJURIES)COMPARIS ON: NoneTECHNIQUE: Routine CT head and cervical spine were obtained without IVcontrast. CT thoracolumbar spine were reconstructed from thecontrast-enhanced CT abdomen/pelvis studies.FINDINGS:CT head:The ventricles and cerebral sulci are normal in caliber and configuration.No hydrocephalus, midline shift or pathological extra-axial fluidcollection is present. The basal cisterns are unremarkable.No acute intracranial hemorrhage or mass effect is present. The torres-whitematter differentiation is preserved. A small, remote lacunar infarct isseen in the right caudate body. No additional parenchymal attenu ationabnormality is present.The calvarium and skull base are unremarkable. The mastoid air cells andvisualized paranasal air sinuses are clear.CT cervical spine:The vertebral bodies are normal in height and in normal alignment. No facetfracture or subluxation is present. A well-corticated, chronic, non unitedfracture of the C7 spinous process is incidentally noted.The craniocervical junction is intact. The prevertebral soft tissues areunremarkable.Incidental note is made of developmental incomplete fusion of the U1lkvghxqxp arch.Multilevel mild to moderate degenerative changes are most pronounced attheC7-T1 level.CT thoracic spine:The vertebral bodies are normal in height and in normal alignment. No facetfracture or subluxation is present. Mild levocurvature is noted.There are thin, bridging syndesmophytes throughout the thoracic spine fromT3-T12. At least partial osseous fusion across the interv ertebral discspaces is seen at T3-T4 and from T5-T8.A large right-sided pneumothorax is partially visualized. Moderatecentrilobular emphysematous changes are seen in the visualized lungs.CT lumbar spine:The vertebral bodies are normal in height and in normal alignment. No facetfracture or subluxation is present. 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 There iscomplete osseous fusion across the sacroiliac joints.IMPRESSIONNo acute intracranial abnormality.No fracture or traumatic malalignment of thecervical, thoracic or lumbarspine. 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 No fracture or traumatic malalignment of the cervical, thoracic or lumbarspine. 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 Partially visualized large right pneumothorax. At the time of dictation, the treating team is aware of and treating thepneumothoraxCT TRAUMA CERVICAL SPINE WO CONTRAST,CT TRAUMA LUMBAR SPINE WO CONTRAST,CT TRAUMA THORACIC SPINE WO CONTRAST,CT TRAUMA HEAD WO CONTRAST HISTORY: Male 69 years Polytrauma, critical, head/C-spine injury suspectedCT TRAUMA PANEL (FALL >20 FT WITH OBVIOUS SERIOUS INJURIES) COMPARISON: None TECHNIQUE: Routine CT head and cervical spine were obtained without IVcontrast. CT thoracolumbar spine were reconstructed from thecontrast- enhanced CT abdomen/pelvis studies. FINDINGS: CT head: The ventricles and cerebral sulci are normal in caliber and configuration.No hydrocephalus, midline shift or pathological extra-axial fluidcollection is present. The basal cisterns are unremarkable. No acute intracranial hemorrhage or mass effect is present. The torres-whitematter differentiation is preserved. A small, remote lacunar infarct isseen in the right caudate body. No additional parenchymal attenuationabnormality is present. The calvarium and skull baseare unremarkable. The mastoid air cells andvisualized paranasal air sinuses are clear. CT cervical spine: The vertebral bodies are normal in height and in normal alignment. No facetfracture or subluxation is present. A well-corticated, chronic, nonunitedfracture of the C7 spinous process is incidentally noted. The craniocervical junction is intact. The prevertebral soft tissues areunremarkable. Incidental note is made of developmental incomplete fusion of the H1kmecfulcy arch. Multilevel mild to moderate degenerative changes are most pronounced at theC7-T1 level. CT thoracic spine: The vertebral bodies are normal in height and in normal alignment. No facetfracture or subluxation is present. Mild levocurvature is noted. There are thin, bridging syndesmophytes throughout the thoracic spine fromT3-T12. At least partial osseous fusion across the intervertebral discspaces is seen at T3-T4 and from T5-T8. A large right-sided pneumothorax is partially visualized. Moderatecentrilobular emphysematous kaelyn nges are seen in the visualized lungs. CT lumbar spine: The vertebral bodies are normal in height and in normal alignment. No facetfracture or subluxation is present. 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 Bridging syndesmophytes are noted throughout the lumbarspine. There iscomplete osseous fusion across the sacroiliac joints. [facility], Radiant Results Inft User- 02/11/2020 1:02 PM CDTCT TRAUMA CERVICAL SPINE WO CONTRAST,CT TRAUMA LUMBAR SPINE WO CONTRAST,CT TRAUMA THORACIC SPINE WO CONTRAST,CT TRAUMA HEAD WO CONTRASTHISTORY: Male 69 years Polytrauma, critical, head/C-spine injury suspectedCT TRAUMA PANEL (FALL >20 FT WITH OBVIOUS SERIOUS INJURIES)COMPARIS ON: NoneTECHNIQUE: Routine CT head and cervical spine were obtained without IVcontrast. CT thoracolumbar spine were reconstructed from thecontrast-enhanced CT abdomen/pelvis studies.FINDINGS:CT head:The ventricles and cerebral sulci are normal in caliber and configuration.No hydrocephalus, midline shift or pathological extra-axial fluidcollection is present. The basal cisterns are unremarkable.No acute intracranial hemorrhage or mass effect is present. The torres-whitematter differentiation is preserved. A small, remote lacunar infarct isseen in the right caudate body. No additional parenchymal attenu ationabnormality is present.The calvarium and skull base are unremarkable. The mastoid air cells andvisualized paranasal air sinuses are clear.CT cervical spine:The vertebral bodies are normal in height and in normal alignment. No facetfracture or subluxation is present. A well-corticated, chronic, non unitedfracture of the C7 spinous process is incidentally noted.The craniocervical junction is intact. The prevertebral soft tissues areunremarkable.Incidental note is made of developmental incomplete fusion of the B0duawxbxoo arch.Multilevel mild to moderate degenerative changes are most pronounced attheC7-T1 level.CT thoracic spine:The vertebral bodies are normal in height and in normal alignment. No facetfracture or subluxation is present. Mild levocurvature is noted.There are thin, bridging syndesmophytes throughout the thoracic spine fromT3-T12. At least partial osseous fusion across the interv ertebral discspaces is seen at T3-T4 and from T5-T8.A large right-sided pneumothorax is partially visualized. Moderatecentrilobular emphysematous changes are seen in the visualized lungs.CT lumbar spine:The vertebral bodies are normal in height and in normal alignment. No facetfracture or subluxation is present. 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 There iscomplete osseous fusion across the sacroiliac joints.IMPRESSIONNo acute intracranial abnormality.No fracture or traumatic malalignment of thecervical, thoracic or lumbarspine. 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 [facility] HospitalCT TRAUMA THORAX W CONTRAST 2020-02-11 17:59:251. Large right pneumothorax2. Nondisplaced fractures involving the right 4th through 12th ribs withassociated subcutaneous emphysema3. Small right pleural effusion, likely hemothorax related to rib frac tures4. Moderately severe centrilobular emphysematous changes with large bullaare noted in the para mediastinal area5. No acute traumatic injury to the organs of the abdomen or pelvis6. Diffuse diverticulosis of the sigmoid and descending colon EXAM: CT scan of the chest with contrast EXAM: CT scan ofthe abdomen and pelvis with contrast HISTORY: Chest trauma, blunt, high energy, initial exam TECHNIQUE:2 mm axial images are obtained from lung apices to the diaphragmsand 3 mm axial images are obtained from diaphragms to the symphysis pubisfollowing intravenous administration of 120 mL of Omnipaque 350. [place] coronal reformation is carried out. COMPARISON: None FINDINGS: CT SCAN OF THE CHEST: The thyroid gland is normal. Thoracic aorta is normal in size. There is no evidence of traumatic injuryto the thoracic aorta. Scattered atherosclerotic calcifications are noted.Classic three-vessel archanatomy is present. The pulmonary arteries normalin size. Heart size is normal. No pericardial effusion is present. Scatteredcoronary artery calcifications are noted. A few nonspecific lymph nodes are seen in the mediastinum, not enlarged byCT criteria. The trachea is normal in size. A small soft tissue density is seen to theright side of the upper trachea at the level of the sternoclavicularjoints. Centrilobular emphysematous changes are seen in both lungs. Multiplescattered bulla are seen predominantly in the right upper lobe and in theparamediastinal area. A very large right pneumothorax is seen. A small right pleural effusion ispresent. Changes of ankylosis are seen involving the thoracic spine. No acutefracture of the thoracic vertebral bodies is seen. The sternum appears araseli normal. Nondisplaced fractures are seen involving fourth through 12th ribs on theright. Associated subcutaneous emphysema is seen involving the right chestwall. CT SCAN OF THE ABDOMEN AND PELVIS: Liver, spleen, gallbladder, pancreas, adrenal glands and kidneys arenormal. No free fluid or free air is seen within the abdomen. No enlarged lymphnodes are noted. Abdominal aorta is normal in size. Dense atherosclerotic calcifications areseen in the aorta and all of its branches. The bowel loops are normal in caliber. Noevidence of bowel obstruction isseen. Diffuse diverticulosis of the descending and sigmoid colon is noted. Prostate gland and urinary bladder grossly normal. Bilateral inguinal hernia is seen with herniation of fat. Ankyloses of the thoracolumbar spine is seen. There is no evidence of anacute fracture. [facility], Radiant Results Inft User - 02/11/2020 1:00 PM CDTEXAM: CT scan of the chest with contrastEXAM: CT scan of the abdomen and pelvis with contrastHISTORY: Chest trauma, blunt, high energy, initial examTECHNIQUE:2 mm axial images are obtained from lung apices to the diaphragmsand 3 mm axial images are obtained from diaphragms to the symphysis pubisfollowing intravenous administration of 120 mL of Omnipaque 350. [place] coronal reformation is carried out.COMPARISON: NoneFINDINGS:CT SCAN OF THECHEST:The thyroid gland is normal.Thoracic aorta is normal in size. There is no evidence of traumatic injuryto the thoracic aorta. Scattered atherosclerotic calcifications are noted.Classic three-vessel arch anatomy is present. The pulmonary arteries normalin size.Heart size is normal. No pericardial effusion is present. Scatteredcoronary artery calcifications are noted.A few nonspecific lymph nodes are seen in the mediastinum, not enlarged byCT criteria.The trachea is normal in size. A small soft tissue density is seen to theright side of the upper trachea at the level of the sternoclavicularjoints .Centrilobular emphysematous changes are seen in both lungs. Multiplescattered bulla are seen predominantly in the right upper lobe and in theparamediastinal area.A very large right pneumothorax is seen. A small right pleural effusion ispresent.Changes of ankylosis are seen involving the thoracic spine. No acutefracture of the thoracic vertebral bodies is seen. The sternum appears araseli normal.Nondisplaced fractures are seen involving fourth through 12th ribs on theright. Associated subcutaneous emphysema is seen involving the right chestwall.CT SCAN OF THE ABDOMEN AND PELVIS:Liver, spleen, gallbladder, pancreas, adrenal glands and kidneys arenormal.No free fluid or free air is seen within the abdomen. No enlarged lymphnodes are noted.Abdominal aorta is normal in size. Dense atherosclerotic calcifications areseen in the aorta and all of its branches.The bowel loops are normal in caliber. No evidence of bowel obstruction isseen. Diffuse diverticulosis of the descending and sigmoid colon is noted.Prostate gland and urinary bladder grossly normal.Bilateral inguinal hernia is seen with herniation of fat.Ankyloses of the thoracolumbar spine is seen. There is no evidence of anacute fracture.IMPRESSION1. Large right pneumothorax2. Nondisplaced fractures involving the right 4th through 12th ribs withassociated subcutaneous emphysema3. Small right pleural effusion, likely hemothorax related to rib fractures4. Moderately severe centrilobular emphysematous changes with large bullaare noted in the paramediastinal area5. No acute traumatic injury to the organs of the abdomen or pelvis6. Diffuse diverti culosis of the sigmoid and descending colonUnCHI St. [facility] HospitalCT TRAUMA ABDOMEN PELVIS W [id number] 17:59:251. Large right pneumothorax2. Nondisplaced fractures involving the right 4th through 12th ribs withassociated subcutaneous emphysema3. Small right pleural effusion, likely hemothorax related to rib fractures4. Moderately severe centrilobular emphysematous changes with large bullaare noted in the para mediastinal area5. No acute traumatic injury to the organs of the abdomen or pelvis6. Diffuse diverticulosis of the sigmoid and descending colon EXAM: CT scan of the chest with contrast EXAM: CT scan ofthe abdomen and pelvis with contrast HISTORY: Chest trauma, blunt, high energy, initial exam TECHNIQUE:2 mm axial images are obtained from lung apices to the diaphragmsand 3 mm axial images are obtained from diaphragms to the symphysis pubisfollowing intravenous administration of 120 mL of Omnipaque 350. [place] coronal reformation is carried out. COMPARISON: None FINDINGS: CT SCAN OF THE CHEST: The thyroid gland is normal. Thoracic aorta is normal in size. There is no evidence of traumatic injuryto the thoracic aorta. Scattered atherosclerotic calcifications are noted.Classic three-vessel archanatomy is present. The pulmonary arteries normalin size. Heart size is normal. No pericardial effusion is present. Scatteredcoronary artery calcifications are noted. A few nonspecific lymph nodes are seen in the mediastinum, not enlarged byCT criteria. The trachea is normal in size. A small soft tissue density is seen to theright side of the upper trachea at the level of the sternoclavicularjoints. Centrilobular emphysematous changes are seen in both lungs. Multiplescattered bulla are seen predominantly in the right upper lobe and in theparamediastinal area. A very large right pneumothorax is seen. A small right pleural effusion ispresent. Changes of ankylosis are seen involving the thoracic spine. No acutefracture of the thoracic vertebral bodies is seen. The sternum appears araseli normal. Nondisplaced fractures are seen involving fourth through 12th ribs on theright. Associated subcutaneous emphysema is seen involving the right chestwall. CT SCAN OF THE ABDOMEN AND PELVIS: Liver, spleen, gallbladder, pancreas, adrenal glands and kidneys arenormal. No free fluid or free air is seen within the abdomen. No enlarged lymphnodes are noted. Abdominal aorta is normal in size. Dense atherosclerotic calcifications areseen in the aorta and all of its branches. The bowel loops are normal in caliber. Noevidence of bowel obstruction isseen. Diffuse diverticulosis of the descending and sigmoid colon is noted. Prostate gland and urinary bladder grossly normal. Bilateral inguinal hernia is seen with herniation of fat. Ankyloses of the thoracolumbar spine is seen. There is no evidence of anacute fracture. [facility], Radiant Results Inft User - 02/11/2020 1:00 PM CDTEXAM: CT scan of the chest with contrastEXAM: CT scan of the abdomen and pelvis with contrastHISTORY: Chest trauma, blunt, high energy, initial examTECHNIQUE:2 mm axial images are obtained from lung apices to the diaphragmsand 3 mm axial images are obtained from diaphragms to the symphysis pubisfollowing intravenous administration of 120 mL of Omnipaque 350. [place] coronal reformation is carried out.COMPARISON: NoneFINDINGS:CT SCAN OF THECHEST:The thyroid gland is normal.Thoracic aorta is normal in size. There is no evidence of traumatic injuryto the thoracic aorta. Scattered atherosclerotic calcifications are noted.Classic three-vessel arch anatomy is present. The pulmonary arteries normalin size.Heart size is normal. No pericardial effusion is present. Scatteredcoronary artery calcifications are noted.A few nonspecific lymph nodes are seen in the mediastinum, not enlarged byCT criteria.The trachea is normal in size. A small soft tissue density is seen to theright side of the upper trachea at the level of the sternoclavicularjoints .Centrilobular emphysematous changes are seen in both lungs. Multiplescattered bulla are seen predominantly in the right upper lobe and in theparamediastinal area.A very large right pneumothorax is seen. A small right pleural effusion ispresent.Changes of ankylosis are seen involving the thoracic spine. No acutefracture of the thoracic vertebral bodies is seen. The sternum appears araseli normal.Nondisplaced fractures are seen involving fourth through 12th ribs on theright. Associated subcutaneous emphysema is seen involving the right chestwall.CT SCAN OF THE ABDOMEN AND PELVIS:Liver, spleen, gallbladder, pancreas, adrenal glands and kidneys arenormal.No free fluid or free air is seen within the abdomen. No enlarged lymphnodes are noted.Abdominal aorta is normal in size. Dense atherosclerotic calcifications areseen in the aorta and all of its branches.The bowel loops are normal in caliber. No evidence of bowel obstruction isseen. Diffuse diverticulosis of the descending and sigmoid colon is noted.Prostate gland and urinary bladder grossly normal.Bilateral inguinal hernia is seen with herniation of fat.Ankyloses of the thoracolumbar spine is seen. There is no evidence of anacute fracture.IMPRESSION1. Large right pneumothorax2. Nondisplaced fractures involving the right 4th through 12th ribs withassociated subcutaneous emphysema3. Small right pleural effusion, likely hemothorax related to rib fractures4. Moderately severe centrilobular emphysematous changes with large bullaare noted in the paramediastinal area5. No acute traumatic injury to the organs of the abdomen or pelvis6. Diffuse diverti culosis of the sigmoid and descending colonUnCHI St. [facility]'s [facility] – Lakeside HospitalXR CHEST 1 [id number] 17:45:46CHEST PORTABLE ONE VIEW HISTORY:Dyspnea, pneumothorax TECHNIQUE: Frontal, portable projection of thechest is obtained. FINDINGS: The lung apices are not completely included on the study. Thelungs are clear. The heart size and mediastinal silhouette are normal. Nopleural effusion is seen. A large right pneumothorax is seen. Also seen is subcutaneous emphysema inthe right chest wall. Nondisplaced fractures are suspected involving the fourth and fifth rightribs. CONCLUSIONS: Large right pneumothorax, right chest wall emphysema and nondisplaced ribfractures Findings discussed with Dr. Hughes at 12:45 PM by phone on 02/11/2020[facility], Radiant Results Inft User - 02/11/2020 12:46 PM CDTCHEST PORTABLE ONE VIEWHISTORY:Dyspnea, pneumothoraxTECHNIQUE: Frontal, portable projection of the chest is obtained.FINDINGS: The lung apices are not completely included on the study. Thelungs are clear. The heart size and mediastinal silhouette are normal. Nopleural effusion is seen.A large right pneumothorax is seen. Also seen is subcutaneous emphysema inthe right chest wall.Nondisplaced fractures are suspected involving the fourth and fifth rightribs.CONCLUSIONS:Large right pneumothorax, right chest wall emphysema and nondisplaced ribfracturesFindings discussed with Dr. Hughes at 12:45 PM by phone on 02/11/2020UnUniversity [facility] Centernin [id number] 17:32:00 Test Item Value Reference Range Interpretation Comments TROPONIN I (test <0.012 See_Comment [Automated code = 7598979039) message] The system which generated this result transmitted reference range : <=0.034 ng/mL. The reference range was not used to interpr et this result as normal/abnormal . LOREN (test code = Equal or Less than LOREN) 0.034 ng/ml---Normal ?Note: Cardiac troponin begins to rise 3-4 hours after the onset of ischemia. Repeat in 4-6 hours if the sample was drawn within 3-4 hours of the onset of the symptom and found normal. Between 0.035 and 0.120 ng/mL--- Borderline. Questionable myocardial injury or necrosis ? ?Note: Serial measurement may be necessary to confirm or exclude the diagnosis of myocardial injury or necrosis; Clinical correlation (symptoms, EKGs, imaging studies, and others) required; Repeat in 4-6 hours if clinically indicated. ? Equal or Higher than 0.121 ng/mL---Abnormal. Myocardial Injury or Necrosis Likely ? Biotin has been reported to cause a negative bias, interpret results relative to patient's use of biotin. ? Lab Interpretation Normal (test code = 45928-8) [facility] (NA, K, CL, CO2, GLUCOSE, BUN, CREATININE, CA)2020-02-11 17:21:00 Test Item Value Reference Range Interpretation Comments NA (test code = 139 mmol/L 135-145 7934279509) K (test code = 4.6 mmol/L 3.5-5 2370525126) CL (test code = 107 mmol/L 98-108 8940434239) CO2 TOTAL (test code = 27 mmol/L 23-31 4020165309) AGAP (test code = 2-16 1695619078) BUN (test code = 22 mg/dL 7-23 3092097129) GLUCOSE (test code = 166 mg/dL 70-110 H 7143903297) CREATININE (test code = 1.12 mg/dL 0.6-1.25 6098491915) CALCIUM (test code = 9.4 mg/dL 8.6-10.6 7742918952) eGFR Calculation mL/min/1.73m2 (Non-) (test code = 0067645443) eGFR Calculation mL/min/1.73m2 () (test code = 1900914816) LOREN (test code = LOREN) Association of Glomerular Filtration Rate (GFR) and Staging of Kidney Disease* + --+ --+ ------+| GFR (mL/min/1.73 m2) ?| With Kidney Damage ?| ?Without Kidney Damage+ --------+ --------+ +| ?>90 ?| ?Stage one ?| ? Normal ?+ ---+ ---+ -------+| ?60-89 ?| ?Stage two ?| ? Decreased GFR ? + --+ --+ ------+| ?30-59 ?| ?Stage three ?| ? Stage three ? + --+ --+ ------+| ?15-29 ?| ?Stage four ? | ? Stage four ?+ ---+ ---+ -------+| ?<15 (or dialysis) ? ?| ?Stage five ? | ? Stage five ?+ ---+ ---+ -------+ *Each stage assumes the associated GFR level has been in effect for at least three months. ?Stages 1 to 5, with or without kidney disease, indicate chronic kidney disease. Notes: Determination of stages one and two (with eGFR >59mL/min/1.73 m2) requires estimation of kidney damage for at least three months as defined by structural or functional abnormalities of the kidney, manifested by either:Pathological abnormalities or Markers of kidney damage (including abnormalities in the composition of the blood or urine or abnormalities in imaging tests). Lab Interpretation Abnormal (test code = 99639-1) [facility] HospitalHepatic Function Panel (ALB, T.PRO, BILI T, BU/BC, ALT, AST, ALK PHOS)2020-02-11 17:21:00 Test Item Value Reference Range Interpretation Comments TOTAL BILI (test code = 5619218513) 0.6 mg/dL 0.1-1.1 BILI UNCON (test code = 9958933544) 0.7 mg/dL 0.1-1.1 BILI CONJ (test code = 0846101133) 0.0 mg/dL 0-0.3 T PROTEIN (test code = 9447399527) 7.8 g/dL 6.3-8.2 ALBUMIN (test code = 5838625348) 4.4 g/dL 3.5-5 ALK PHOS (test code = 8915247146) 79 U/L 34-122 ALTv (test code = 1742-6) 43 U/L 5-50 AST(SGOT) (test code = 9076489715) 63 U/L 13-40 H Lab Interpretation (test code = Abnormal 57512-1) [facility] HospitalProthrombin Time (PT) / [id number] 17:21:00 Test Item Value Reference Range Interpretation Comments PROTIME PATIENT (test See_Comment [Auto mated message] code = 5964-2) The system wh ich generated this result transmitted ref erence range: 12.0 - 1 4.7 Seconds. The re ference range was not u sed to interpret this result as normal/abnor mal. INR (test code = 6301-6) Nor mal INR <1.1; Warfarin Therap eutic range 2.0 to 3. 0 or 2.5 to 3.5, dep ending upon the indica tions. Lab Interpretation (test Normal code = 33448-4) [facility] HospitalaPTT2020-06-05 17:20:00 Test Item Value Reference Range Interpretation Comments APTT Patient (test See_Comment [Automat ed code = 3173-2) message] The system which generated this result transmitted reference range : 23 - 38 Seconds . The reference range was not used to interpr et this result as normal/abnormal . LOREN (test code = LOREN) The [facility] patient population mean normal value for aPTT is 30 seconds. Lab Interpretation Normal (test code = 72611-3) [facility] HospitalLipase [id number] 17:20:00 Test Item Value Reference Range Interpretation Comments LIPASE (test code = 6183468008) 118 U/L 0-220 Lab Interpretation (test code = Normal 12368-3) [facility] HospitalCBC WITH [id number] 17:07:00 Test Item Value Reference Range Interpretation Comments WBC (test code = See_Comment [Automated message] 8990-2) The system [employer] generated this result transmitted ref erence range: 4.20 - 1 0.70 10*3/?L. The re ference range was not u sed to interpret this result as normal/abnor mal. RBC (test code = See_Comment [Automated message] 869-8) The system [employer] generated this result transmitted ref erence range: 4.26 - 5 .52 10*6/?L. The re ference range was not u sed to interpret this result as normal/abnor mal. HGB (test code = 14.3 g/dL 12.2-16.4 718-7) HCT (test code = 42.0 % 38.4-49.3 4544-3) MCV (test code = 90.7 fL 81.7-95.6 787-2) MCH (test code = 30.9 pg 26.1-32.7 785-6) MCHC (test code = 34.0 g/dL 31.2-35 786-4) RDW-SD (test code 45.1 fL 38.5-51.6 = 37368-5) RDW-CV (test code 13.7 % 12.1-15.4 = 788-0) PLT (test code = See_Comment [Automated message] 087-3) The system [employer] generated this result transmitted ref erence range: 150 - 32 8 10*3/?L. The re ference range was not u sed to interpret this result as normal/abnor mal. MPV (test code = 10.5 fL 9.8-13 16115-0) NRBC/100 WBC (test See_Comment [Automat ed message] code = 0709064971) The syste m which generated this result transmitted ref erence range: 0.0 - 10 .0 /100 WBCs. The refer ence range was not u sed to interpret this result as normal/abnor mal. NRBC x10^3 (test <0.01 See_Comment [Automated message] code = 9094935135) The syste m which generated this result transmitted ref erence range: 10*3/?L. The reference range was not used to interpr et this result as normal/abnormal . GRAN MAT (NEUT) % 73.2 % (test code = 770-8) IMM GRAN % (test 0.90 % code = 0300888378) LYMPH % (test code 16.8 % = 736-9) MONO % (test code 6.3 % = 5905-5) EOS % (test code = 2.1 % 713-8) BASO % (test code 0.7 % = 706-2) GRAN MAT 5.14 10*3/uL 1.99-6.95 x10^3(ANC) (test code = 4232564137) IMM GRAN x10^3 0.06 10*3/uL 0-0.06 (test code = 7000930745) LYMPH x10^3 (test 1.18 10*3/uL 1.09-3.23 code = 731-0) MONO x10^3 (test 0.44 10*3/uL 0.36-1.02 code = 742-7) EOS x10^3 (test 0.15 10*3/uL 0.06-0.53 code = 711-2) BASO x10^3 (test 0.05 10*3/uL 0.01-0.09 code = 704-7) [facility]"
[2023-02-28 02:25] LABS: Absolute Lymphocytes (CBC) 0.5 K/uL (0.7-4.9); Hematocrit 35.5 % (39.6-49.0); Lymphocytes % 10.3 % (15.3-44.8); MCV 91.2 fL (80-100); MPV 8.7 fL (7.6-11.3)
[2023-02-28 02:28] LABS: Protime INR 1.25
[2023-02-28] MEDS ORDERED: MORPHINE 4 MG/ML SYR ONE (02:36)
[2023-02-28] MEDS ORDERED: DIPHENHYDRAMINE 50 MG/ML VIAL ONE (02:36)
[2023-02-28] MEDS ORDERED: ONDANSETRON 4 MG/2 ML VIAL ONE (02:37)
[2023-02-28] MEDS ORDERED: AMIODARONE HCL 200 MG TAB ONE (02:37)
[2023-02-28 02:53] LABS: ALT/SGPT 21 U/L (16-61); AST/SGOT 14 U/L (15-37); Albumin 3.3 g/dL (3.4-5.0); Alkaline Phosphatase 107 U/L (45-117); BUN Blood Urea Nitrogen 33 mg/dL (7-18); Bicarbonate 31 mEq/L (21-32); Bilirubin Direct < 0.1 mg/dL (0-0.2); Bilirubin Indirect, Calculated ND mg/dL (0.2-0.8); Bilirubin Total 0.3 mg/dL (0.2-1.0); Glomerular Filtration Rate 45 ml/min (=/>90); Glucose Level 287 mg/dL (74-106); Lipase 31 U/L (13-75); NT PRO-BNP 3915 pg/mL (<125); Potassium 4.1 mEq/L (3.5-5.1); Protein, Total 7.2 g/dL (6.4-8.2); Sodium Level 142 mEq/L (136-145); Troponin High Sensitivity 19.3 pg/mL (<58.9)
--- NOTE | 2023-02-28 03:48 | EDPHYS ---
Physician Documentation [facility] Name: Sergey Nye Age: 72 yrs Sex: Male : 1950 Arrival Date: 02/28/2023 Time: 02:02 Bed 19 Private MD: ED Physician Ishmael Chauhan HPI: 02/28 02:06 This 72 yrs old Male presents to ER via Unassigned with complaints of Chest sp4 pain and dyspnea . 03:29 Patient arrived with EMS after he developed acute chest pain and dyspnea at home chest sp4 pain described as moderate 4 out of 10 on a scale and midsternal. Patient has recent admission on 12/18/2022 for pulmonary embolism, acute kidney injury, hyperglycemia with type 2 diabetes, bigeminy rhythm, COPD, hypertension, and chronic right posterior eighth rib fracture. . Patient has history of chronic obstructive pulmonary disease, type 2 diabetes hypertension atrial fibrillation and he was admitted in bigeminal rhythm at that time troponins were normal, chest x-ray revealed no acute cardiopulmonary disease, bilateral lower extremity Dopplers revealed no evidence of DVT VQ scan revealed VQ mismatch compatible with high probability of pulmonary embolus, cardiology was consulted for bigeminy he was evaluated by Dr. Schwarz echocardiogram revealed unremarkable findings he was cleared for discharge home with outpatient cardiac stress test. Patient was sent home with Symbicort and apixaban twice a day. He was discharged on 12/19/2022. Patient's medications include Eliquis 5 mg p.o. twice daily, budesonide/formoterol fumarate twice a day, fluoxetine daily, insulin aspart insulin glargine and metoprolol tartrate.. Historical: - Allergies: 02:11 PENICILLINS; vc1 - Home Meds: 02:11 Eliquis oral [Active]; vc1 - PMHx: 02:11 Anxiety; COPD; diabetes mellitus; Hypertensive disorder; Prostate Cancer; vc1 02:12 Atrial fibrillation; vc1 - PSHx: 02:11 None; vc1 - Immunization history:: Client reports receiving the 2nd dose of the Covid vaccine. - Social history:: Smoking status: Patient/guardian denies using tobacco, but has a distant history of tobacco abuse. - Family history:: not pertinent. ROS: 03:29 Constitutional: Negative for fever, chills, and weight loss, Eyes: Negative for injury, sp4 pain, redness, and discharge, ENT: Negative for injury, pain, and discharge, Neck: Negative for injury, pain, and swelling, Cardiovascular: Negative for palpitations, and edema, positive for chest pain and dyspnea Respiratory: Negative for cough, wheezing, and pleuritic chest pain, positive for dyspnea Abdomen/GI: Negative for abdominal pain, nausea, vomiting, diarrhea, and constipation, Back: Negative for injury and pain, : Negative for injury, bleeding, discharge, and swelling, MS/Extremity: Negative for injury and deformity, Skin: Negative for injury, rash, and discoloration, Neuro: Negative for headache, weakness, numbness, tingling, and seizure, Psych: Negative for depression, anxiety, Allergy/Immunology: Negative for hives, rash, and allergies Endocrine: Negative for neck swelling, polydipsia, polyuria, polyphagia, and weight changes Hematologic/Lymphatic: Negative for swollen nodes, abnormal bleeding, and unusual bruising Exam: 03:29 Constitutional: This is a well developed, well nourished patient who is awake, alert, sp4 ill-appearing male nontoxic Head/Face: Normocephalic, atraumatic. Eyes: Pupils equal round and reactive to light, extra-ocular motions intact. Lids and lashes normal. Conjunctiva and sclera are not injected. Cornea within normal limits. Periorbital areas with no swelling, redness, or edema. ENT: Nares patent. No nasal discharge, no septal abnormalities noted. Tympanic membranes are normal and external auditory canals are clear. Oropharynx with no redness, swelling, or masses, exudates, or evidence of obstruction, uvula midline. Mucous membranes moist. Neck: Trachea midline, no thyromegaly or masses palpated, and no cervical lymphadenopathy. Supple, full range of motion without nuchal rigidity, or vertebral point tenderness. Chest/axilla: Normal chest wall appearance and motion. Nontender with no deformity. No lesions are appreciated. Cardiovascular: Regular rate and rhythm with a normal S1 and S2. No gallops, murmurs, or rubs. Normal PMI, no JVD. No pulse deficits. Respiratory: Lungs have equal breath sounds bilaterally, clear to auscultation and percussion. No rales, rhonchi or wheezes noted. No increased work of breathing, no retractions or nasal flaring. Abdomen/GI: Soft, non-tender, with normal bowel sounds. No distension or tympany. No guarding or rebound. No evidence of tenderness throughout. Back: No spinal tenderness. No costovertebral tenderness. Skin: Warm, dry with normal turgor. Normal color with no rashes, no lesions, and no evidence of cellulitis. MS/ Extremity: Pulses equal, no cyanosis. Neurovascular intact. Full, normal range of motion. Neuro: Awake and alert, GCS 15, oriented to person, place, time, and situation. Cranial nerves II-XII grossly intact. Motor strength 5/5 in all extremities. Sensory grossly intact. Psych: Awake, alert, with orientation to person, place and time. Behavior, mood, and affect are within normal limits 03:29 ECG was reviewed by the Attending Physician. Initial EKG 0207 revealed sinus rhythm sp4 with frequent PVCs in a bigeminy pattern, left axis deviation, rate of 85, no ST elevation or depression Vital Signs: 02:09 BP 171 / 100; Pulse 88; Resp 12; Pulse Ox 99% ; Weight 82.55 kg; Height 5 ft. 7 in. ; vc1 Pain 4/10; 03:00 BP 133 / 65; Pulse 67; Resp 16; Pulse Ox 96% ; vc1 04:00 BP 137 / 73; Pulse 60; Resp 18; Temp 98.1; Pulse Ox 98% ; vc1 02:09 Body Mass Index 28.50 (82.55 kg, 170.18 cm) vc1 02:09 Pain Scale: Adult vc1 MDM: 02:06 Patient medically screened. sp4 03:40 Differential Diagnosis sepsis, flu, Unstable angina, stable angina, COPD exacerbation. sp4 Data reviewed: vital signs, nurses notes, old medical records, lab test result(s), cardiac enzymes, CBC, electrolytes, hepatic panel, EKG, radiologic studies, plain films. Consideration of Admission/Observation Patient was admitted/placed on observation. Escalation of care including admission/observation considered. Management of patient was discussed with the following: Hospitalist: Discussed with admission team. ED course: Chest x-ray revealed no acute cardiopulmonary abnormality.. Patient has history of recent pulmonary embolus managed in December. History of prior atrial fibrillation. He is on Eliquis. Patient has risk factors for coronary artery disease and warrants admission for monitoring and cardiology assessment in the morning. . 02/28 02:06 Order name: Basic Metabolic Panel; Complete Time: 03:23 sp4 02/28 02:06 Order name: CBC with Diff; Complete Time: 03:23 sp4 02/28 02:06 Order name: LFT's; Complete Time: 03:23 sp4 02/28 02:06 Order name: Magnesium; Complete Time: 03:23 sp4 02/28 02:06 Order name: NT PRO-BNP; Complete Time: 03:23 sp4 02/28 02:06 Order name: PT-INR; Complete Time: 03:23 sp4 02/28 02:06 Order name: Troponin HS; Complete Time: 03:23 sp4 02/28 02:06 Order name: Lipase; Complete Time: 03:23 sp4 02/28 02:06 Order name: TSH; Complete Time: 03:23 sp4 02/28 07:17 Order name: Glucose, Ancillary Testing EDSD 02/28 09:45 Order name: Troponin High Sensitivity EDSD 02/28 09:47 Order name: Lipid Profile EDSD 02/28 02:06 Order name: XRAY Chest (1 view) sp4 02/28 02:06 Order name: EKG; Complete Time: 02:07 sp4 02/28 02:06 Order name: Cardiac monitoring; Complete Time: 02:16 sp4 02/28 02:06 Order name: EKG - Nurse/Tech; Complete Time: 02:16 sp4 02/28 02:06 Order name: IV Saline Lock; Complete Time: 02:16 sp4 02/28 02:06 Order name: Labs collected and sent; Complete Time: 02:16 sp4 02/28 02:06 Order name: O2 Per Protocol; Complete Time: 02:16 sp4 02/28 02:06 Order name: O2 Sat Monitoring; Complete Time: 02:16 sp4 EC:29 Rate is 85 beats/min. Rhythm is regular, Sinus Rhythm with Unifocal PVCs. Left axis sp4 deviation noted. TN interval is normal. QRS interval is normal. No ST changes noted. Clinical impression: No evidence of ischemia. Interpreted by me. Administered Medications: 02:39 Drug: morphine IVP or IV 4 mg Route: IVP; Infused Over: 4 mins; Site: right antecubital;vc1 03:29 Follow up: Response: No adverse reaction; Marked relief of symptoms vc1 02:39 Drug: diphenhydrAMINE IVP 25 mg Route: IVP; Site: right antecubital; vc1 03:29 Follow up: Response: No adverse reaction; Marked relief of symptoms vc1 02:39 Drug: Ondansetron IVP 4 mg Route: IVP; Site: right antecubital; vc1 03:29 Follow up: Response: No adverse reaction; Marked relief of symptoms vc1 02:39 Drug: amiodarone PO 400 mg Route: PO; vc1 03:30 Follow up: Response: No adverse reaction; Marked relief of symptoms vc1 Disposition Summary: 02/28/23 03:48 Hospitalization Ordered Hospitalization Status: Observation sp4 Provider: Olaf Giron spGeorgina Condition: Stable sp4 Problem: new sp4 Symptoms: have improved sp4 Bed/Room Type: Standard sp4 Location: Telemetry/MedSurg (observation)(02/28/23 11:05) [facility] Room Assignment: 220(02/28/23 11:05) [facility] Diagnosis - Unstable angina sp4 - COPD exacerbation, premature ventricular contractions and bigeminy pattern sp4 Forms: - Medication Reconciliation Form sp4 - SBAR form sp4 Signatures: Dispatcher [employer] EDSofía Burnham RN RN cg Jonh Ken RN RN ja1 Aydee Esparza RN RN vc1 Ishmael Chauhan MD MD sp4 Corrections: (The following items were deleted from the chart) 04:00 03:48 Telemetry/MedSurg (observation) sp4 cg 04:00 03:48 sp4 cg 04:58 02:11 Allergies: No Known Allergies; vc1 vc1 11:05 04:00 [facility] ER HOLD cg ja1 11:05 04:00 ERHOLD- cg ja1
--- NOTE | 2023-02-28 03:48 | ER ---
Nurse's Notes [facility] Name: Sergey Nye Age: 72 yrs Sex: Male : 1950 Arrival Date: 02/28/2023 Time: 02:02 Bed 19 Private MD: Diagnosis: Unstable angina;COPD exacerbation, premature ventricular contractions and bigeminy pattern Presentation: 02/28 02:09 Chief complaint: EMS states: "We were toned out for chest pain, he said he usually has vc1 chest pain but this time it woke him up out of a sleep.". Coronavirus screen: Vaccine status: Patient reports receiving the 2nd dose of the covid vaccine. [employer] Client denies travel out of the [place] in the last 14 days. At this time, the client does not indicate any symptoms associated with coronavirus-19. Ebola Screen: Patient negative for fever greater than or equal to 101.5 degrees Fahrenheit, and additional compatible Ebola Virus Disease symptoms Patient denies exposure to infectious person. Patient denies travel to an Ebola-affected area in the 21 days before illness onset. No symptoms or risks identified at this time. Initial Sepsis Screen: Does the patient meet any 2 criteria? No. Patient's initial sepsis screen is negative. Does the patient have a suspected source of infection? No. Patient's initial sepsis screen is negative. Risk Assessment: Do you want to hurt yourself or someone else? Patient reports no desire to harm self or others. Onset of symptoms was February 28, 2023 at 01:00. 02:09 Method Of Arrival: [facility]: [facility] vc1 02:09 Acuity: RAYA 3 vc1 02:17 Care prior to arrival: Medication(s) given: ASA, 81 mg, x 4, IV initiated. 20 GA, in vc1 the right antecubital area, Glucose check: 268. Activity prior to arrival: None. Triage Assessment: 02:12 General: Appears in no apparent distress. uncomfortable, obese, Behavior is vc1 cooperative, appropriate for age. Pain: Complains of pain in chest Pain does not radiate. Pain currently is 4 out of 10 on a pain scale. at worst was 8 out of 10 on a pain scale. Alleviated by medications. EENT: No deficits noted. No signs and/or symptoms were reported regarding the EENT system. Neuro: Level of Consciousness is awake, alert, obeys commands, Oriented to person, place, time, situation, Appropriate for age. Cardiovascular: Reports chest pain, Chest pain is described as severe, quality is sharp, is located in left chest wall began suddenly, 2 hours prior to arrival. Respiratory: Airway is patent Respiratory effort is even, unlabored, Respiratory pattern is regular, symmetrical. GI: No deficits noted. No signs and/or symptoms were reported involving the gastrointestinal system. : No deficits noted. No signs and/or symptoms were reported regarding the genitourinary system. Derm: No deficits noted. No signs and/or symptoms reported regarding the dermatologic system. Musculoskeletal: No deficits noted. No signs and/or symptoms reported regarding the musculoskeletal system. Historical: - Allergies: 02:11 PENICILLINS; vc1 - Home Meds: 02:11 Eliquis oral [Active]; vc1 - PMHx: 02:11 Anxiety; COPD; diabetes mellitus; Hypertensive disorder; Prostate Cancer; vc1 02:12 Atrial fibrillation; vc1 - PSHx: 02:11 None; vc1 - Immunization history:: Client reports receiving the 2nd dose of the Covid vaccine. - Social history:: Smoking status: Patient/guardian denies using tobacco, but has a distant history of tobacco abuse. - Family history:: not pertinent. Screenin:14 [facility] ED Fall Risk Assessment (Adult) History of falling in the last 3 months, vc1 including since admission No falls in past 3 months (0 pts) Confusion or Disorientation No (0 pts) Intoxicated or Sedated No (0 pts) Impaired Gait No (0 pts) Mobility Assist Device Used No (0 pt) Altered Elimination No (0 pt) Score/Fall Risk Level 0 - 2 = Low Risk Oriented to surroundings, Maintained a safe environment, Educated pt \\T\\ family on fall prevention, incl call for assistance when getting out of bed. Abuse screen: Denies threats or abuse. Nutritional screening: No deficits noted. Tuberculosis screening: No symptoms or risk factors identified. Assessment: 03:00 Reassessment: Patient and/or family updated on plan of care and expected duration. Pain vc1 level reassessed. Patient is alert, oriented x 3, equal unlabored respirations, skin warm/dry/pink. Patient states feeling better. Patient states symptoms have improved. 04:00 Reassessment: Patient and/or family updated on plan of care and expected duration. Pain vc1 level reassessed. Patient is alert, oriented x 3, equal unlabored respirations, skin warm/dry/pink. Patient denies pain at this time. Patient states feeling better. Patient states symptoms have improved. Vital Signs: 02:09 BP 171 / 100; Pulse 88; Resp 12; Pulse Ox 99% ; Weight 82.55 kg; Height 5 ft. 7 in. ; vc1 Pain 4/10; 03:00 BP 133 / 65; Pulse 67; Resp 16; Pulse Ox 96% ; vc1 04:00 BP 137 / 73; Pulse 60; Resp 18; Temp 98.1; Pulse Ox 98% ; vc1 02:09 Body Mass Index 28.50 (82.55 kg, 170.18 cm) vc1 02:09 Pain Scale: Adult vc1 ED Course: 02:03 Patient arrived in ED. la1 02:05 Ishmael Chauhan MD is Attending Physician. sp4 02:11 Triage completed. vc1 02:14 Arm band placed on right wrist. vc1 02:14 Patient has correct armband on for positive identification. Bed in low position. Call vc1 light in reach. Client placed on continuous cardiac and pulse oximetry monitoring. NIBP monitoring applied. 02:17 Initial lab(s) drawn, by me, sent to lab. Inserted saline lock: 20 gauge in left jw7 antecubital area, using aseptic technique. Blood collected. 02:17 Basic Metabolic Panel Sent. jw7 02:17 CBC with Diff Sent. jw7 02:17 LFT's Sent. jw7 02:17 Magnesium Sent. jw7 02:17 NT PRO-BNP Sent. jw7 02:17 PT-INR Sent. jw7 02:17 Troponin HS Sent. jw7 02:17 TSH Sent. jw7 02:17 Lipase Sent. jw7 02:18 Aydee Esparza RN is Primary Nurse. vc1 02:41 XRAY Chest (1 view) In Process Unspecified. EDMS 03:47 Olaf Giron MD is Hospitalizing Provider. sp4 03:53 Called [facility]. Referral ID: [id number]. rv1 04:30 No provider procedures requiring assistance completed. Patient admitted, IV remains in vc1 place. 07:00 Report received from Aydee Bolden RN. kc6 09:33 Assisted to bathroom. aw1 Administered Medications: 02:39 Drug: morphine IVP or IV 4 mg Route: IVP; Infused Over: 4 mins; Site: right antecubital;vc1 03:29 Follow up: Response: No adverse reaction; Marked relief of symptoms vc1 02:39 Drug: diphenhydrAMINE IVP 25 mg Route: IVP; Site: right antecubital; vc1 03:29 Follow up: Response: No adverse reaction; Marked relief of symptoms vc1 02:39 Drug: Ondansetron IVP 4 mg Route: IVP; Site: right antecubital; vc1 03:29 Follow up: Response: No adverse reaction; Marked relief of symptoms vc1 02:39 Drug: amiodarone PO 400 mg Route: PO; vc1 03:30 Follow up: Response: No adverse reaction; Marked relief of symptoms vc1 Medication: 02:14 VIS not applicable for this client. vc1 Outcome: 03:48 Decision to Hospitalize by Provider. sp4 04:30 Admitted to ER Hold. Please see [facility] for further documentation. vc1 04:30 Condition: good 04:30 Instructed on the need for admit. vc1 11:41 Patient left the ED. jl7 Signatures: Dispatcher [employer] EDMS Froylan Gutierrez, BRENT-C STANDARD MACHINE STITCHER-Cla1 Abbie Van RN RN jl7 Aydee Esparza RN RN vc1 Yudith Jaramillo7 Zahra Kessler RN RN kc6 Vaishnavi Larios Sergey, MD MD sp4 Sherine Padilla aw1 Corrections: (The following items were deleted from the chart) 04:58 02:11 Allergies: No Known Allergies; vc1 vc1
--- NOTE | 2023-02-28 04:33 | P.HP ---
Certification for Inpatient Patient admitted to: Observation With expected LOS: <2 Midnights Patient will require the following post-hospital care: None Practitioner: I am a practitioner with admitting privileges, knowledge of patient current condition, hospital course, and medical plan of care. Services: Services provided to patient in accordance with Admission requirements found in Title 42 Section 412.3 of the Code of Federal Regulations <Froylan Gutierrez - Last Filed: 02/28/23 04:30> Patient History Date of Service: 02/28/23 Reason for admission: Chest pain History of Present Illness: 72-year-old male with history of PE on anticoagulation, insulin-dependent diabetes, hypertension, COPD, bigeminy presents to the emergency department with chief complaint of chest pain. He reports he was awoken from his sleep with a stabbing-like chest pain radiating to his left shoulder area with tingling in his left arm which lasted for approximately 30 minutes. He could not find a thing that made the pain better or worse during this time. He last ate around 4 PM on the . He reports he has had similar episodes in the past but none were this bad. He recently had what sounds to be a Holter monitor in place from the [facility] as well as a "walking test". He reports his last stress test was approximately 3 years ago and he has never had a heart catheterization. He was evaluated here in the emergency department his labs are significant for creatinine of 1.62 initial high-sensitivity troponin 19.3 BNP 3915, his chest x- ray is pending interpretation at this time. He was admitted on 12/18/2022 overnight for chest pain, at that time he was diagnosed with a pulmonary embolism and started on Eliquis which she has been compliant with since then. At that time he was instructed to follow-up with the [facility] for further evaluation for cardiology and possible outpatient stress test. He will be admitted under observation for chest pain. - Past Medical/Surgical History -: Insulin-dependent diabetes -: Hypertension -: COPD -: PE -: Right knee replacement -: Left cataract surgery Psychosocial/ Personal History: Patient lives at home with family - Family History Mother -: Heart disease Brother -: Heart disease - Social History Smoking Status: Former smoker CD- Drugs: No Caffeine use: Yes Place of Residence: Home <Froylan Gutierrez - Last Filed: 02/28/23 04:30> Date of Service: 02/28/23 <Olaf Giron - Last Filed: 02/28/23 15:26> Allergies Penicillins Allergy (Verified 12/18/22 04:43) Itching/Hives/Rash Home Medications: Apixaban [Eliquis] 5 mg PO BID #60 tab 12/19/22 Budesonide/Formoterol Fumarate [Symbicort 160-4.5 Mcg Inhaler] 2 puff IH BID #1 inhaler 12/19/22 Insulin Aspart [Novolog Flexpen] See Protocol SQ SEECOM 12/19/22 Aspirin Chewable [Aspirin Chewable*] 81 mg PO DAILY 02/28/23 Atorvastatin Calcium [Lipitor] 0.5 tab PO BEDTIME 02/28/23 Calcium Carb/Vitamin D3/Vit K1 [Calcium + D Soft Chewable Tab] 2 each PO DAILY 02/28/23 Cyanocobalamin (Vitamin B-12) [Vitamin B-12] 1 cap PO DAILY 02/28/23 Insulin Detemir [Levemir Flexpen] 50 unit SQ BEDTIME 02/28/23 Ipratropium/Albuterol Sulfate [Combivent Respimat 20-100 Mcg] 1 puff IH PRN PRN 02/28/23 Latanoprost Ophth [Xalatan 0.005%*] 1 drop EACH EYE BEDTIME 02/28/23 Lisinopril [Zestril] 20 mg PO DAILY 02/28/23 Metoprolol Tartrate [Lopressor*] 25 mg PO BID 6AM 6PM 02/28/23 Tamsulosin HCl 2 tab PO BEDTIME 02/28/23 hydroCHLOROthiazide [Hydrochlorothiazide] 25 mg PO DAILY 02/28/23 oxyBUTYnin chloride [Oxybutynin Chloride] 5 mg PO BID 02/28/23 Review of Systems 10-point ROS is otherwise unremarkable Cardiovascular: Chest Pain <Froylan Gutierrez - Last Filed: 02/28/23 04:30> Physical Examination - Physical Exam General: Alert, In no apparent distress, Oriented x3 HEENT: Atraumatic, PERRLA, Mucous membr. moist/pink, EOMI, Sclerae nonicteric Neck: Supple, 2+ carotid pulse no bruit, No LAD, Without JVD or thyroid abnormality Respiratory: Clear to auscultation bilaterally, Normal air movement Cardiovascular: Regular rate/rhythm, Normal S1 S2 Gastrointestinal: Normal bowel sounds, No tenderness Musculoskeletal: No tenderness Integumentary: No rashes Neurological: Normal gait, Normal speech, Normal strength at 5/5 x4 extr, Normal tone, Normal affect Lymphatics: No axilla or inguinal lymphadenopathy - Studies Laboratory Data (last 24 hrs) 02/28/23 02:14: PT 13.7 H, INR 1.25 02/28/23 02:14: WBC 4.40, Hgb 11.7 L, Hct 35.5 L, Plt Count 144 L 02/28/23 02:14: Sodium 142, Potassium 4.1, BUN 33 H, Creatinine 1.62 H, Glucose 287 H, Magnesium 2.0, Total Bilirubin 0.3, AST 14 L, ALT 21, Alkaline Phosphatase 107, Lipase 31 <Froylan Gutierrez - Last Filed: 02/28/23 04:30> - Studies Laboratory Data (last 24 hrs) 02/28/23 02:14: PT 13.7 H, INR 1.25 02/28/23 02:14: WBC 4.40, Hgb 11.7 L, Hct 35.5 L, Plt Count 144 L 02/28/23 02:14: Sodium 142, Potassium 4.1, BUN 33 H, Creatinine 1.62 H, Glucose 287 H, Magnesium 2.0, Total Bilirubin 0.3, AST 14 L, ALT 21, Alkaline Phosphatase 107, Lipase 31 <Olaf Giron - Last Filed: 02/28/23 15:26> Assessment and Plan - Plan Assessment: Chest pain rule out ACS History of PE on anticoagulation Bigeminy-resolved Hypertension COPD Plan: Chest pain rule out ACS Trend troponins, monitor on telemetry, cardiology consult in place. Follow-up chest x-ray results, BNP elevated over previous, does not appear grossly overloaded at this time. History of PE on anticoagulation Continue Eliquis, patient has been compliant with anticoagulation at home. He is not hypoxic nor short of breath. Bigeminy-resolved Continue p.o. metoprolol, he was given a dose of oral amiodarone in the ER which seemed to have resolved his bigeminy. Appreciate further input from cardiology. Hypertension Metoprolol 25 mg p.o. twice daily continued. COPD As needed nebulizer treatments. DVT PPX: Continue Eliquis Code status: Full Discharge Plan: Home Plan to discharge in: 24 Hours - Advance Directives Does patient have a Living Will: No Does patient have a Durable POA for Healthcare: No - Code Status/Comfort Care Code Status Assessed: Yes (Full code) Critical Care: No Time Spent Managing Pts Care (In Minutes): 55 <Froylan Gutierrez - Last Filed: 02/28/23 04:30> - Plan Patient seen and examined on rounds this morning. Short of breath with exertion, worsening over last month chest pain is different compared to when presented with new PEs unable to get CTA due to risk of worsening renal function ACS vs CHF vs COPD component, no wheez this morning, reports slight wheeze yesterday trop trending up Cardiology consulted <Olaf Giron - Last Filed: 02/28/23 15:26>
[2023-02-28] MEDS ORDERED: ONDANSETRON 4 MG/2 ML VIAL IV PRN (04:57)
[2023-02-28] MEDS: NA CHLORIDE 0.9% 1,000 ML IV SCH ×3 (05:00→21:15)
[2023-02-28 05:06] VITALS: BMI 28.5
[2023-02-28] MEDS ORDERED: METOPROLOL TAR 25 MG TAB ONE (05:47)
[2023-02-28] MEDS ORDERED: NA CHLORIDE 0.9% 1,000 ML ONE (05:47)
[2023-02-28] MEDS: METOPROLOL TAR 25 MG TAB PO SCH ×2 (06:00→16:17)
[2023-02-28] MEDS ORDERED: INSULIN -REGULAR HUMAN 50 UNIT/0.5 ML ML ONE (07:30)
[2023-02-28] MEDS: INSULIN -REGULAR HUMAN 50 UNIT/0.5 ML ML SQ SCH ×4 (07:30→21:07)
[2023-02-28] MEDS ORDERED: APIXABAN 5 MG TABLET ONE (07:30)
[2023-02-28] MEDS: APIXABAN 5 MG TABLET PO SCH ×2 (08:11→21:08)
--- NOTE | 2023-02-28 11:11 | RAD REPORT ---
EXAM DESCRIPTION: RAD - Chest Single View - 02/28/2023 2:39 am CLINICAL HISTORY: The patient is 72 years old and is Male; CHEST PAIN [facility] MAIN TECHNIQUE: Frontal view of the chest. COMPARISON: 12/17/2022 chest radiograph FINDINGS: LUNGS: No discrete focal consolidation. PLEURAL SPACE: No appreciable pleural effusion. No pneumothorax. HEART: Stable. MEDIASTINUM: Stable cardiomediastinal silhouette. BONES/JOINTS: Remote posterior right eighth rib fracture again noted. No acute osseous abnormality. VASCULATURE: Calcified atherosclerosis of the thoracic aorta. IMPRESSION: No acute findings in the chest. Electronically signed by: Simeon Forbes MD 02/28/2023 2:58 AM CDT Due to temporary technical issues with the PACS/Fluency reporting system, reports are being signed by the in house radiologist without review as a courtesy to ensure prompt reporting. The interpreting r adiologist is fully responsible for the content of the report.
--- NOTE | 2023-02-28 16:28 | EKG ---
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
--- NOTE | 2023-02-28 17:26 | CON ---
Date of Consultation: 02/28/2023 Reason For Consultation: Chest pain, elevated troponin. History Of Present Illness: 72-year-old male, history of PE, on anticoagulation, diabetes, hypertens ion, COPD, presented with chest pain, pressure-like, woke him up from sleep and it lasted for about 3 0 minutes and since it has been coming on and off. Last episode was last night. No known history of coronary artery disease. Past Medical History: Diabetes, hypertension, COPD, PE, and dyslipidemia. Medications: Refer to reconciliation sheet for detailed list. Allergies: PENICILLIN. Family History: No premature coronary artery disease or cancer. Social History: He is an ex-smoker. Does not drink. Does not use any drugs. Review of Systems: All systems reviewed and they were negative except what mentioned in HPI. Physical Examination: Vital Signs: Reviewed. Head and Neck: Pupils are equal, reactive to light. Intact eye movements. No JVD. No cervical lym phadenopathy. Neck is supple. Thyroid is not enlarged. Lungs: Clear to auscultation bilaterally. No rhonchi, wheezing, or crackles. No accessory muscle u se. Heart: Irregular. No extra sounds. Abdomen: Soft, nontender. Bowel sounds positive. No organomegaly. No masses or hernia. No rigidi ty or rebound. Extremities: No clubbing or cyanosis. Intact pulses. Skin: No rash. Neurologic: Alert, awake, oriented x3. No acute focal deficits appreciated. Investigations: Troponins 111, BUN 33, creatinine 1.61, hemoglobin 11.7. Assessment And Recommendations: 1.Chest pain with elevated troponin suggestive of acute coronary syndrome. Discontinue the Eliquis, put him on Lovenox 1 mg/kg subcu q.12 hours and plan to keep him n.p.o. past midnight on Friday. Co ronary angiogram on Friday morning. 2.Hypertension, pressure is controlled. SR/MODL Voice ID: [id number] Report ID: [id number]
[2023-02-28] MEDS: FLUOXETINE 10 MG CAP PO SCH (18:28)
[2023-03-01 03:30] LABS: Absolute Lymphocytes (CBC) 0.5 K/uL (0.7-4.9); Hematocrit 33.2 % (39.6-49.0); Lymphocytes % 9.8 % (15.3-44.8); MCV 91.7 fL (80-100); MPV 9.1 fL (7.6-11.3); RBC Red Blood Cell Count 3.62 M/uL (4.33-5.43)
[2023-03-01 03:48] LABS: Potassium 4.4 mEq/L (3.5-5.1)
[2023-03-01] MEDS: METOPROLOL TAR 25 MG TAB PO SCH ×2 (05:16→17:26)
--- NOTE | 2023-03-01 07:01 | P.PN ---
Date of Service: 03/01/23 Subjective: feeling a little better continues to get SOB on exertion +headache otherwise no new / worsening problems ROS: 10 point ROS as noted above, otherwise negative Physical Exam: GEN: Alert, oriented, NAD HEENT: Normal conjunctiva, sclera anicteric CV: Regular rate and rhythm, no edema Pulm: Nonlabored respirations at rest, +dyspnea and tachypnea with exertion ABD: Soft, nontender, nondistended Neuro: Normal speech, normal affect vitals reviewed Problem List: Chest pain, NSTEMI History of recent PE on anticoagulation Bigeminy-resolved Hypertension COPD, chronic BPH Chest pain, NSTEMI troponins trended up, monitor on telemetry cardiology consulted unable to get CTA due to risk of worsening renal function ACS vs CHF vs COPD component, no wheeze this morning, reports slight wheeze 2 days ago Cardiology consulted tentative plan for heart cath on saturday 03/03 switched eliquis to lovenox on 03/01 AM, in preparation for cath on friday IVF DCd PRN tylenol PO statin at bedtime History of recent PE on anticoagulation hold Eliquis, patient has been compliant with anticoagulation at home. He is not hypoxic nor short of breath. switched to Lovenox 03/01 Bigeminy-resolved Continue p.o. metoprolol, given oral amiodarone in the ER which seemed to have resolved his bigeminy. Hypertension Metoprolol 25 mg p.o. twice daily lisinopril COPD, chronic less likely an acute exacerbation. continue PRN nebulizer treatments BPH -continue flomax VTE: Lovenox Code: Full Dispo: Home ~Friday, after cardiac cath
[2023-03-01] MEDS: INSULIN -REGULAR HUMAN 50 UNIT/0.5 ML ML SQ SCH ×4 (07:30→21:00)
[2023-03-01] MEDS ORDERED: ACETAMINOPHEN 500 MG TAB PO PRN (08:19)
[2023-03-01] MEDS: FLUOXETINE 10 MG CAP PO SCH (08:25)
[2023-03-01] MEDS: ENOXAPARIN 80 MG/0.8 ML SQ SCH ×2 (08:26→21:27)
[2023-03-01] MEDS: lisinopriL 20 MG TAB PO SCH (08:26)
[2023-03-01] MEDS: LATANOPROST 0.005% 2.5ML OPTH OPTH SCH ×2 (21:00)
[2023-03-01] MEDS: ATORVASTATIN 10 MG TAB PO SCH (21:26)
[2023-03-01] MEDS: TAMSULOSIN 0.4 MG SR CAP PO SCH (21:27)
[2023-03-02 02:57] LABS: Absolute Lymphocytes (CBC) 0.4 K/uL (0.7-4.9); Hematocrit 32.5 % (39.6-49.0); Lymphocytes % 8.1 % (15.3-44.8); MCV 90.9 fL (80-100); MPV 9.1 fL (7.6-11.3); RBC Red Blood Cell Count 3.57 M/uL (4.33-5.43)
[2023-03-02] MEDS: METOPROLOL TAR 25 MG TAB PO SCH ×2 (06:46→17:02)
--- NOTE | 2023-03-02 06:56 | P.PN ---
Date of Service: 03/02/23 Subjective: intermittent chest pain, severity improving "squeezing" chest pain worsens at night ~1-2am feels breathing is slightly worse, SOB getting easier to trigger, +cough ROS: 10 point ROS as noted above, otherwise negative Physical Exam: GEN: Alert, oriented, NAD HEENT: Normal conjunctiva, sclera anicteric CV: Regular rate and rhythm, no edema Pulm: Nonlabored respirations on 2L NC , mild rhonchi bilaterally, +dyspnea and tachypnea with exertion ABD: Soft, nontender, nondistended Neuro: Normal speech, normal affect vitals reviewed Problem List: Chest pain, NSTEMI History of recent PE on anticoagulation Bigeminy-resolved Hypertension COPD, chronic BPH Chest pain, NSTEMI cardiology consulted CXR (02/27): No acute findings ; CXR (03/02): ordered ACS vs CHF vs COPD component, no wheeze this morning, reports slight wheeze 2-3 days ago Cardiology consulted tentative plan for heart cath on saturday 03/03 switched eliquis to lovenox on 03/01 AM, in preparation for cath on friday IVF DCd lasix x1 on 03/02 PRN tylenol PO statin at bedtime History of recent PE on anticoagulation hold Eliquis, patient has been compliant with anticoagulation at home. switched to Lovenox 03/01 Bigeminy-resolved Continue p.o. metoprolol, given oral amiodarone in the ER which seemed to have resolved his bigeminy. Hypertension Metoprolol 25 mg p.o. twice daily lisinopril COPD, chronic less likely an acute exacerbation. continue PRN nebulizer treatments BPH -continue flomax VTE: Lovenox Code: Full Dispo: Home, ~2 days pending cardiac cath still dyspneic, pending improvement
[2023-03-02] MEDS: INSULIN -REGULAR HUMAN 50 UNIT/0.5 ML ML SQ SCH ×4 (07:30→21:00)
[2023-03-02] MEDS: lisinopriL 20 MG TAB PO SCH (08:48)
[2023-03-02] MEDS: FLUOXETINE 10 MG CAP PO SCH (08:49)
[2023-03-02] MEDS: ENOXAPARIN 80 MG/0.8 ML SQ SCH ×3 (08:49→20:19)
[2023-03-02] MEDS: BENZONATATE 100 MG CAP PO PRN ×2 (10:16→20:18)
--- NOTE | 2023-03-02 13:06 | RAD REPORT ---
EXAM DESCRIPTION: RAD - Chest Single View - 03/02/2023 12:56 pm CLINICAL HISTORY: cough, increased shortness of breath Chest pain. COMPARISON: Chest Single View dated 02/28/2023; Chest Single View dated 12/17/2022; Chest Single View dated 12/13/2022 FINDINGS: Portable technique limits examination quality. Mild bilateral interstitial opacity compatible with interstitial pulmonary edema. Trace bilateral ple ural effusions. The heart is mildly prominent. No displaced fractures. IMPRESSION: Mild CHF versus volume overload pattern.
[2023-03-02] MEDS ORDERED: FUROSEMIDE 20 MG/ 2ML VIAL IV ONE (17:21)
[2023-03-02] MEDS: ATORVASTATIN 10 MG TAB PO SCH (20:18)
[2023-03-02] MEDS: LATANOPROST 0.005% 2.5ML OPTH OPTH SCH (20:18)
[2023-03-02] MEDS: TAMSULOSIN 0.4 MG SR CAP PO SCH (20:19)
--- NOTE | 2023-03-02 21:12 | PN ---
Date of Progress Note: 03/02/2023 Subjective: Seen by bedside. He continues to have chest pain with minimal exertion. No nausea, vom iting, or diarrhea. No abdominal pain. Review of Systems: All other systems reviewed and they were negative. Physical Examination: Vital signs: Reviewed. Head and Neck: Pupils are equal, reactive to light. Intact eye movements. No JVD. No cervical lym phadenopathy. Neck is supple. Thyroid is not enlarged. Lungs: Clear to auscultation bilaterally. No rhonchi, wheezing, or crackles. No accessory muscle u se. Heart: Regular rate and rhythm. No extra sounds. Abdomen: Soft, nontender. Bowel sounds positive. No organomegaly. No masses or hernia. No rigidi ty. Extremities: No edema, clubbing, or cyanosis. Intact pulses. Skin: No rashes. Neurologic: Alert, awake, and oriented x3. No acute focal deficits appreciated. Investigations: BUN 29, creatinine 1.27, and troponin peaked at 112, and hemoglobin is 10.9. Assessment And Recommendation: 1.Chest pain with positive troponin. This could represent acute coronary syndrome. Agree with anti coagulation with Lovenox and aspirin, to hold after tonight's dose of Lovenox. Plan for coronary ang iogram tomorrow morning and continue aspirin. 2.Hypertension. Blood pressure is uncontrolled. Recommend to increase lisinopril to 40 mg twice a day. 3.Dyslipidemia. Recommend to decrease the Lipitor to at least 10 mg and titrate up as needed. SR/MODL Voice ID: [id number] Report ID: [id number]
[2023-03-03 03:57] LABS: Absolute Lymphocytes (CBC) 0.4 K/uL (0.7-4.9); Hematocrit 29.4 % (39.6-49.0); Lymphocytes % 10.2 % (15.3-44.8); MPV 8.7 fL (7.6-11.3); RBC Red Blood Cell Count 3.23 M/uL (4.33-5.43)
[2023-03-03 04:13] LABS: Magnesium 1.9 mg/dL (1.6-2.4); Potassium 3.7 mEq/L (3.5-5.1)
[2023-03-03] MEDS: METOPROLOL TAR 25 MG TAB PO SCH (06:20)
--- NOTE | 2023-03-03 06:47 | P.PN ---
Date of Service: 03/03/23 Subjective: ROS: 10 point ROS as noted above, otherwise negative Physical Exam: GEN: Alert, oriented, NAD HEENT: Normal conjunctiva, sclera anicteric CV: Regular rate and rhythm, no edema Pulm: Nonlabored respirations on 2L NC , mild rhonchi bilaterally, +dyspnea and tachypnea with exertion ABD: Soft, nontender, nondistended Neuro: Normal speech, normal affect vitals reviewed Problem List: Chest pain, NSTEMI History of recent PE on anticoagulation Bigeminy-resolved Hypertension COPD, chronic BPH Chest pain, NSTEMI cardiology consulted CXR (02/27): No acute findings ; CXR (03/02): ordered ACS vs CHF vs COPD component, no wheeze this morning, reports slight wheeze 2-3 days ago Cardiology consulted NPO for heart cath today 03/03 switched eliquis to lovenox on 03/01 AM, in preparation for cath on friday IVF DCd lasix x1 on 03/02 PRN tylenol PO statin at bedtime History of recent PE on anticoagulation hold Eliquis, patient has been compliant with anticoagulation at home. switched to Lovenox 03/01 Bigeminy-resolved Continue p.o. metoprolol, given oral amiodarone in the ER which seemed to have resolved his bigeminy. Hypertension Metoprolol 25 mg p.o. twice daily lisinopril COPD, chronic less likely an acute exacerbation. continue PRN nebulizer treatments BPH -continue flomax VTE: Lovenox Code: Full Dispo: Home, ~2 days pending cardiac cath still dyspneic, pending improvement
[2023-03-03] MEDS ORDERED: NA CHLORIDE 0.9% 500 ML ONE (07:02)
[2023-03-03] MEDS ORDERED: HEPA 1000U/500MLS 2,000 UNIT/1,000 ML BAG IV ONE (07:03)
[2023-03-03] MEDS ORDERED: MIDAZOLAM HCL 2 MG/2 ML INJ ONE (07:03)
[2023-03-03] MEDS ORDERED: FENTANYL CITR 100 MCG/2 ML ONE (07:03)
[2023-03-03] MEDS ORDERED: LIDOCAINE 1% 20 ML MDV ONE ×2 (07:03→07:40)
[2023-03-03] MEDS ORDERED: HEPARIN 5000 UNIT/ML 1 ML VIAL ONE (07:03)
[2023-03-03] MEDS ORDERED: VERAPAMIL HCL 10 MG/4 ML VIAL IV ONE (07:04)
[2023-03-03] MEDS ORDERED: HEPARIN 10,000 UNIT/10 ML VIAL IV ONE (07:04)
[2023-03-03] MEDS ORDERED: TICAGRELOR 90 MG TABLET PO ONE (07:04)
[2023-03-03] MEDS ORDERED: CLOPIDOGREL 75 MG TABLET ONE (07:04)
[2023-03-03] MEDS ORDERED: ASPIRIN 325 MG TAB ONE (07:04)
[2023-03-03] MEDS ORDERED: ATROPINE SULF 1 MG/10 ML SYR IV ONE (07:05)
[2023-03-03] MEDS ORDERED: FUROSEMIDE 20 MG/ 2ML VIAL ONE (07:11)
[2023-03-03] MEDS: INSULIN -REGULAR HUMAN 50 UNIT/0.5 ML ML SQ SCH ×2 (07:30→11:30)
[2023-03-03] MEDS: lisinopriL 20 MG TAB PO SCH (08:14)
[2023-03-03] MEDS: FLUOXETINE 10 MG CAP PO SCH (08:14)
[2023-03-03 10:25] VITALS: O2SAT 100
--- NOTE | 2023-03-03 11:30 | OP ---
Date of Procedure: 03/03/2023 Surgeon: AUTUMN ALFORD Procedure Performed: Selective coronary angiogram. Indication: [id number] myocardial infarction. Access: Right radial artery 6-Brazilian closed with TR band. Complications: None. Bleeding: Less than 20 mL. Description Of Procedure: After risks, benefits, and alternatives were explained, patient agreed to the procedure, and signed informed consent. Patient was brought into the cardiac catheterization lab oratory, prepped and draped in usual sterile fashion. Then, I accessed right radial artery using ped iatric micropuncture kit, and placed 6-Brazilian Slender sheath and took 5-Brazilian [place] 4 catheter into the aortic root and engaged left main, then the right coronary artery and took standard views. I rem mehrdad the catheter and the sheath, placed TR band with good hemostasis. Findings: 1.Left main: Large and normal. 2.LAD: Large vessel in the mid segment right before diagonal branch takeoff, 99% eccentric plaque, heavily calcified with a takeoff of a big septal and the diagonal branch and then after that, there i s a 30% stenosis. Diagonal branches are with luminal irregularities. 3.Left circumflex: It is a moderate-sized vessel with proximal 60% to 70% stenosis. 4.RCA: It is moderate-size vessel and codominant in the distal 80% on the bend area. Conclusion: Severe multivessel coronary artery disease. Recommendation: CABG evaluation. We will transfer to [facility] for CT Surgery eval. /MODL Voice ID: [id number] Report ID: [id number]
[2023-03-03] MEDS: BENZONATATE 100 MG CAP PO PRN (12:03)
[2023-03-03 16:15] VITALS: BP 166/72; TEMP 97.3
--- NOTE | 2023-03-03 16:18 | P.DS ---
Admission Date: 02/28/23 Discharge Date: 03/03/23 Disposition: TRANSFER TO [facility] Reason for Admission: Chest pain Consultations: Cardiology - Dr. Rinaldi Brief History of Present Illness: 72yo M, PMH: recent PE on anticoagulation, IDDM2, HTN, COPD Presented to ED with chest pain and dyspnea on exertion. Associated with pain radiating to left shoulder and tingling to his left arm. Cr: 1.62, HS-Trop: 19.3, BNP: 3915. Admitted for ACS rule out Hospital Course: Problem List: NSTEMI, CAD History of recent PE on anticoagulation Bigeminy-resolved Hypertension COPD, chronic BPH Patient continued with shortness of breath and mild chest discomfort. His troponin increased to low 100s. Cardiology was consulted for NSTEMI. He underwent cardiac catheterization on 03/03 and noted to have multivessel disease (cath report pending). Corporate Aircraft Mechanic initiated and arranged transfer to [facility] for CT surgery evaluation for CABG. During hospitalization patient did have shortness of breath, and repeat CXR on 03/02 noted some increase in pulmonary edema. He was given lasix. Vital Signs/Physical Exam: Temp Pulse Resp BP Pulse Ox 96.9 F 65 14 151/67 H 100 03/03/23 12:00 03/03/23 12:00 03/03/23 12:00 03/03/23 12:00 03/03/23 12:00 General: Alert, In no apparent distress, Oriented x3 HEENT: EOMI, Sclerae nonicteric Neck: Supple, No LAD Respiratory: Diminished, Expiratory wheezes Cardiovascular: No edema, Regular rate/rhythm Gastrointestinal: Soft and benign, Non-distended, No tenderness Musculoskeletal: No contractures, No tenderness Integumentary: No rashes, No significant lesion Neurological: Normal speech, Normal affect Laboratory Data at Discharge: WBC 3.40 thou/uL (4.3-10.9) L 03/03/23 02:37 Hgb 10.0 g/dL (13.6-17.9) L D 03/03/23 02:37 Hct 29.4 % (39.6-49.0) L 03/03/23 02:37 Plt Count 102 thou/uL (152-406) L 03/03/23 02:37 PT 13.7 SECONDS (9.5-12.5) H 02/28/23 02:14 INR 1.25 02/28/23 02:14 Sodium 143 mEq/L (136-145) 03/03/23 02:37 Potassium 3.7 mEq/L (3.5-5.1) 03/03/23 02:37 BUN 27 mg/dL (7-18) H 03/03/23 02:37 Creatinine 1.09 mg/dL (0.70-1.30) 03/03/23 02:37 Glucose 176 mg/dL (74-106) H 03/03/23 02:37 Magnesium 1.9 mg/dL (1.6-2.4) 03/03/23 02:37 Total Bilirubin 0.3 mg/dL (0.2-1.0) 02/28/23 02:14 AST 14 U/L (15-37) L 02/28/23 02:14 ALT 21 U/L (16-61) 02/28/23 02:14 Alkaline Phosphatase 107 U/L (45-117) 02/28/23 02:14 Triglycerides 232 mg/dL (<150) H 02/28/23 09:08 Cholesterol 88 mg/dL (<200) 02/28/23 09:08 HDL Cholesterol 28 mg/dL (40-60) L 02/28/23 09:08 Cholesterol/HDL Ratio 3.14 02/28/23 09:08 Lipase 31 U/L (13-75) 02/28/23 02:14 Home Medications: Apixaban [Eliquis] 5 mg PO BID #60 tab 12/19/22 Budesonide/Formoterol Fumarate [Symbicort 160-4.5 Mcg Inhaler] 2 puff IH BID #1 inhaler 12/19/22 Insulin Aspart [Novolog Flexpen] See Protocol SQ SEECOM 12/19/22 Aspirin Chewable [Aspirin Chewable*] 81 mg PO DAILY 02/28/23 Atorvastatin Calcium [Lipitor] 0.5 tab PO BEDTIME 02/28/23 Calcium Carb/Vitamin D3/Vit K1 [Calcium + D Soft Chewable Tab] 2 each PO DAILY 02/28/23 Cyanocobalamin (Vitamin B-12) [Vitamin B-12] 1 cap PO DAILY 02/28/23 Fluoxetine HCl [Prozac*] 10 mg PO DAILY 02/28/23 Insulin Detemir [Levemir Flexpen] 50 unit SQ BEDTIME 02/28/23 Ipratropium/Albuterol Sulfate [Combivent Respimat 20-100 Mcg] 1 puff IH PRN PRN 02/28/23 Latanoprost Ophth [Xalatan 0.005%*] 1 drop EACH EYE BEDTIME 02/28/23 Lisinopril [Zestril] 20 mg PO DAILY 02/28/23 Metoprolol Tartrate [Lopressor*] 25 mg PO BID 6AM 6PM 02/28/23 Tamsulosin HCl 2 tab PO BEDTIME 02/28/23 hydroCHLOROthiazide [Hydrochlorothiazide] 25 mg PO DAILY 02/28/23 oxyBUTYnin chloride [Oxybutynin Chloride] 5 mg PO BID 02/28/23 Followup: NONE,NONE [Primary Care Provider] - Time spent managing pt's care (in minutes): 45
--- NOTE | 2023-03-03 17:18 | EKG ---
Test Date: 2023-02-28 Test Time: 03:35:01 Journeyman Sheet Metal Worker: TEDDY MEASUREMENT RESULTS: Intervals: Rate: 65 CO: 172 QRSD: 92 QT: 408 QTc: 424 [place]: P: 56 CO: 172 QRS: -54 T: 132 INTERPRETIVE STATEMENTS: Normal sinus rhythm Left axis deviation ST & T wave abnormality, consider anterolateral ischemia Abnormal ECG Compared to ECG 02/28/2023 02:07:30 Ventricular premature complex(es) no longer present ST (T wave) deviation still present Possible ischemia still present Electronically Signed On 03-03-23 17:12:35 CDT by Bienvenido Rnialdi
== END 2023-03-03 16:23 | disposition short-term general hospital (02) | DRG 282 ==
LOC: ER 02:02 → ERHOLD 04:18 → 2ND 11:41 → OBSVTOIN 03-02 11:51
PROVIDERS: ADMIT Hospitalist; ATTEND Hospitalist
PROC: 4A023N7 Measurement of Cardiac Sampling and Pressure, Left Heart, Percutaneous Approach (ICD-10-PCS; principal; 2023-03-03)
PROC: B2111ZZ Fluoroscopy of Multiple Coronary Arteries using Low Osmolar Contrast (ICD-10-PCS; 2023-03-03)
DX: I21.4 Non-ST elevation (NSTEMI) myocardial infarction (principal); E11.9 Type 2 diabetes mellitus without complications; I10 Essential (primary) hypertension; I49.3 Ventricular premature depolarization; E78.5 Hyperlipidemia, unspecified; N40.0 Benign prostatic hyperplasia without lower urinary tract symptoms; I48.91 Unspecified atrial fibrillation; I25.10 Atherosclerotic heart disease of native coronary artery without angina pectoris; Z79.4 Long term (current) use of insulin; Z88.0 Allergy status to penicillin; Z79.51 Long term (current) use of inhaled steroids; Z79.01 Long term (current) use of anticoagulants; Z85.46 Personal history of malignant neoplasm of prostate; Z86.711 Personal history of pulmonary embolism; Z87.891 Personal history of nicotine dependence; Z96.651 Presence of right artificial knee joint
CPT/HCPCS: 36415; 71045; 76937; 80048; 80061; 80076; 82947; 83690; 83735; 83880; 84443; 84484; 85025; 85610; 87070; 87205; 93005; 93454; 96374; 96375; 99285; C1893; G0378; J0461; J1200; J1644; J1815; J1940; J2001; J2250; J2405; J3010; J7030; J7040; Q9966

== ENCOUNTER 2023-07-23 09:30 | Inpatient (IN) | payer OTHER ==
--- OUTSIDE RECORDS SUMMARY | 2023-07-23 09:44 | XMS REPORT | Continuity of Care Document ---
:1950 Author Organization [facility] t Address [address] [facility] [facility] [place] [address] Care Team Providers Name Role Phone Giuliano Meyer MD Primary Care Physician Rojelio Magaña Attending Clinician Unavailable Dulce Mcguire Attending Clinician Unavailable Luci Villeda Attending Clinician Unavailable AYSE GONZALES Attending Clinician Unavailable Ayse Castillo Attending Clinician Vtc-Lab Attending Clinician Unavailable Sammy HERNANDEZ, Sendil K.[facility]. Attending Clinician RYAN CHRISTIANSON K.H. Attending Clinician Unavailable Pob, Ad[facility] Lab Main Attending Clinician Unavailable Neal Mars DO Attending Clinician Doctor Unassigned, [place] Attending Clinician Unavailable Perri Call MD Attending Clinician PERRI CALL Attending Clinician Unavailable Tony Bustos RN Attending Clinician Unavailable Reddy Luque MD Attending Clinician CHERYL HUGEHS Attending Clinician Unavailable Cheryl Hughes MD Attending Clinician Elvie Gamboa Admitting Clinician Unavailable Dulce Mcguire Admitting Clinician Unavailable Luci Villeda Admitting Clinician Unavailable Person Reddy HERNANDEZ Admitting Clinician REDDY LQUUE Admitting Clinician Unavailable Payers Payer Name Policy Type Policy Number Effective Date Expiration Date Abbie escobar [employer] MEDICARE [id number] 2020 ADVANTAGE 00:00:00 [employer] [id number] 1999 ADMINISTRATION 00:00:00 Problems Condition Condition Condition Status Onset Resolution Last Treating Co mments Source Name Details Category Date Date Treatment Clinician Date Fall from Fall from Disease Active Uni vers ladder, ladder, 6 ity of initial initial 00:00: [place] encounter encounter 00 [facility] Traumatic Traumatic Disease Active Uni vers fracture fracture 02-13 ity of of ribs of ribs 00:00: [place] with with 00 Medical pneumothor pneumothor Br anch ax, right, ax, right, closed, closed, initial initial encounter encounter JERAMY (acute JERAMY (acute Disease Active U nivers kidney kidney 02-13 ity of injury) injury) 00:00: [place] 00 [facility] Trauma Trauma Disease Active 2019-0 Univers 6- ity of 00:00: [place] 00 [facility] Allergies, Adverse Reactions, Alerts Allergy Allergy Status Severity Reaction(s) Onset Inactive Treating Comm ents Source Name Type Date Date Clinician Penicill DA Active U USE COMMENT [facility] 03-03 Clear 00:00: [address] PENICILL DRUG Active Unknown-Cmnt 0 Un karla IN INGREDI 6 ity of 00:00: [place] 00 Medical Branch Penicill Propensi Active Unknown - 2020-0 Uni vers in ty to See comments 02-10 ity of adverse 00:00: [place] reaction 00 Medical s Branch Penicill Propensi Active Unknown - 2020-0 Uni vers in ty to See comments 6- ity of adverse 00:00: [place] reaction 00 Medical s Branch TOMATO DRUG Active Swelling 2006-09 Univers INGREDI 09-15 ity of 00:00: [place] 00 Medical Branch Tomato Propensi Active Swelling 2006-09 Tongue Univer s ty to 09-15 ity of adverse 00:00: [place] reaction 00 Medical s [place] NO KNOWN Drug Active Univers ALLERGIE Class ity of [facility] Social History Social Habit Start Date Stop Date Quantity Comments Source Sexual orientation Univer sity [facility] [place] [facility] History of tobacco Cigarette Smoker [facility] Exposure to 2021-02-05 2021-03-07 Not sure [facility]-CoV-2 (event) 00:00:00 08:25:00 [facility] History of Social 2020-12-05 2020-12-05 Univers ity of function 00:00:00 00:00:00 [facility] Tobacco use and 2020-02-11 2020-02-11 Smokeless Universit y of exposure 00:00:00 00:00:00 tobacco non-user [facility] Sex Ass[birth year] Universit y [facility] 00:00:00 [facility] Smoking Status Start Date Stop Date Source Unknown if ever smoked Universit y [facility] [place] [facility] Ex-smoker 2020-10-06 00:00:00 2020-10-06 00:00:00 Universi ty [facility] [place] [facility] Never smoked tobacco [facility] Medications Ordered Filled Start Stop Current Ordering Indication Dosage Frequency Signature Comments Components Source Medication Medication Date Date Medication? Clinician (SIG) Name Name tc 2020- No [id number] 43.2mCi 43.2 Univ ers 99m-tetrofo 4-04 11-[address] [facility] 15:45: 15:35 , [place] ([facility]) 00 :00 Intravenou Medi arely injection s, ONCE, 1 Bran ch 43.2 dose, Camilla millicurie 12/14/20 at 1045, Routine tc 2020- No [id number] 16.3mCi 16.3 Univ ers 99m-tetrofo -04 11-08 millicurie i ty of smin 13:15: 13:07 , [place] ([facility]) 00 :00 Intravenou Medi arely injection s, ONCE, 1 Bran ch 16.3 dose, Camilla millicurie 12/14/20 at 0815, Routine lisinopriL Yes 20mg Take 1 Unive rs 20 mg 3-30 tablet by ity of tablet 00:00: mouth [place] 00 daily. Medical Branch magnesium 1-0 Yes [id number] 71.5mg Take 1 Univers chloride 3-30 tablet by ity of (SLOW-MAG) 00:00: mouth [place] 71.5 mg 00 daily. Medical tablet Branch lisinopriL 1-0 Yes 20mg Take 1 Unive rs 20 mg 3-30 tablet by ity of tablet 00:00: mouth [place] 00 daily. Medical Branch magnesium 1-0 Yes [id number] 71.5mg Take 1 Univers chloride 3-30 tablet by ity of (SLOW-MAG) 00:00: mouth [place] 71.5 mg 00 daily. Medical tablet Branch lisinopriL 2020-0 Yes 20mg Take 1 Unive rs 20 mg 3-30 tablet by ity of tablet 00:00: mouth [place] 00 daily. Medical Branch magnesium 1-0 Yes [id number] 71.5mg Take 1 Univers chloride 3-30 tablet by ity of (SLOW-MAG) 00:00: mouth [place] 71.5 mg 00 daily. Medical tablet Branch lisinopriL 2020-0 Yes 20mg Take 1 Unive rs 20 mg 3-30 tablet by ity of tablet 00:00: mouth [place] 00 daily. Medical Branch magnesium 2020-0 Yes [id number] 71.5mg Take 1 Univers chloride 3-30 tablet by ity of (SLOW-MAG) 00:00: mouth [place] 71.5 mg 00 daily. Medical tablet Branch lisinopriL 2020-0 Yes 20mg Take 1 Unive rs 20 mg 3-30 tablet by ity of tablet 00:00: mouth [place] 00 daily. Medical Branch magnesium 1-0 Yes [id number] 71.5mg Take 1 Univers chloride 3-30 tablet by ity of (SLOW-MAG) 00:00: mouth [place] 71.5 mg 00 daily. Medical tablet Branch lisinopriL 1-0 Yes 20mg Take 1 Unive rs 20 mg 3-30 tablet by ity of tablet 00:00: mouth [place] 00 daily. Medical Branch magnesium 2021-0 Yes [id number] 71.5mg Take 1 Univers chloride 3-30 tablet by ity of (SLOW-MAG) 00:00: mouth [place] 71.5 mg 00 daily. Medical tablet Branch lisinopriL 2021-0 Yes 20mg Take 1 Unive rs 20 mg 3-30 tablet by ity of tablet 00:00: mouth [place] 00 daily. Medical Branch magnesium 2020-0 Yes [id number] 71.5mg Take 1 Univers chloride 3-30 tablet by ity of (SLOW-MAG) 00:00: mouth [place] 71.5 mg 00 daily. Medical tablet Branch lisinopriL 2020-0 Yes 20mg Take 1 Unive rs 20 mg 3-30 tablet by ity of tablet 00:00: mouth [place] 00 daily. Medical Branch magnesium 2020-0 Yes [id number] 71.5mg Take 1 Univers chloride 3-30 tablet by ity of (SLOW-MAG) 00:00: mouth [place] 71.5 mg 00 daily. Medical tablet Branch lisinopriL 2020-0 Yes 20mg Take 1 Unive rs 20 mg 3-30 tablet by ity of tablet 00:00: mouth [place] 00 daily. Medical Branch magnesium 2020-0 Yes [id number] 71.5mg Take 1 Univers chloride 3-30 tablet by ity of (SLOW-MAG) 00:00: mouth [place] 71.5 mg 00 daily. Medical tablet Branch lisinopriL 2020-0 Yes 20mg Take 1 Unive rs 20 mg 3-30 tablet by ity of tablet 00:00: mouth [place] 00 daily. Medical Branch magnesium 2020-0 Yes [id number] 71.5mg Take 1 Univers chloride 3-30 tablet by ity of (SLOW-MAG) 00:00: mouth [place] 71.5 mg 00 daily. Medical tablet Branch lisinopriL 2020-0 Yes 20mg Take 1 Unive rs 20 mg 3-30 tablet by ity of tablet 00:00: mouth [place] 00 daily. Medical Branch magnesium 2020-0 Yes [id number] 71.5mg Take 1 Univers chloride 3-30 tablet by ity of (SLOW-MAG) 00:00: mouth [place] 71.5 mg 00 daily. Medical tablet Branch lisinopriL 2020-0 Yes 20mg Take 1 Unive rs 20 mg 3-30 tablet by ity of tablet 00:00: mouth [place] 00 daily. Medical Branch magnesium 2020-0 Yes [id number] 71.5mg Take 1 Univers chloride 3-30 tablet by ity of (SLOW-MAG) 00:00: mouth [place] 71.5 mg 00 daily. Medical tablet Branch lisinopriL 2020-0 Yes 20mg Take 1 Unive rs 20 mg 3-30 tablet by ity of tablet 00:00: mouth [place] 00 daily. Medical Branch magnesium 2020-0 Yes [id number] 71.5mg Take 1 Univers chloride 3-30 tablet by ity of (SLOW-MAG) 00:00: mouth [place] 71.5 mg 00 daily. Medical tablet Branch lisinopriL 0 Yes 20mg Take 1 Unive rs 20 mg 3-30 tablet by ity of tablet 00:00: mouth [place] 00 daily. Medical Branch magnesium 0 Yes [id number] 71.5mg Take 1 Univers chloride 3-30 tablet by ity of (SLOW-MAG) 00:00: mouth [place] 71.5 mg 00 daily. Medical tablet Branch lisinopriL 0 Yes 20mg Take 1 Unive rs 20 mg 3-30 tablet by ity of tablet 00:00: mouth [place] 00 daily. Medical Branch magnesium 0 Yes [id number] 71.5mg Take 1 Univers chloride 3-30 tablet by ity of (SLOW-MAG) 00:00: mouth [place] 71.5 mg 00 daily. Medical tablet Branch aspirin 81 0 Yes 81mg Take 81 mg U nivers mg chewable 1-29 by mouth ity of tablet 17:10: daily. [place] [address] Medical Branch omeprazole 0 Yes 20mg Take 20 mg U nivers 20 mg 1-29 by mouth ity of capsule 17:10: daily. [place] [address] Medical Branch tamsulosin 2020-0 Yes .4mg Take 0.4 Uni vers 0.4 mg 24 1-29 mg by ity of hr capsule 17:10: mouth [place] [address] daily. Medical Branch atorvastati 2020-0 Yes 5mg Take 5 mg U nivers n 10 mg 1-29 by mouth ity of tablet 17:10: at [place] [address] bedtime. Medical Branch FLUoxetine 0 Yes 10mg Take 10 mg U nivers 10 mg 1-29 by mouth ity of capsule 17:10: daily. [place] [address] Medical Branch aspirin 81 2020-0 Yes 81mg Take 81 mg U nivers mg chewable 1-29 by mouth ity of tablet 17:10: daily. [place] [address] Medical Branch omeprazole 2020-0 Yes 20mg Take 20 mg U nivers 20 mg 1-29 by mouth ity of capsule 17:10: daily. [place] [address] Medical Branch tamsulosin 2020-0 Yes .4mg Take 0.4 Uni vers 0.4 mg 24 1-29 mg by ity of hr capsule 17:10: mouth [place] [address] daily. Medical Branch atorvastati 2020-0 Yes 5mg Take 5 mg U nivers n 10 mg 1-29 by mouth ity of tablet 17:10: at [place] [address] bedtime. Medical Branch FLUoxetine 2020-0 Yes 10mg Take 10 mg U nivers 10 mg 1-29 by mouth ity of capsule 17:10: daily. [place] [address] Medical Branch aspirin 81 2020-0 Yes 81mg Take 81 mg U nivers mg chewable 1-29 by mouth ity of tablet 17:10: daily. [place] [address] Medical Branch omeprazole 2020-0 Yes 20mg Take 20 mg U nivers 20 mg 1-29 by mouth ity of capsule 17:10: daily. [address] Branch tamsulosin 2020-0 Yes .4mg Take 0.4 Uni vers 0.4 mg 24 1-29 mg by ity of hr capsule 17:10: mouth [place] [address] daily. Medical Branch atorvastati 0 Yes 5mg Take 5 mg U nivers n 10 mg 1-29 by mouth ity of tablet 17:10: at [place] [address] bedtime. Medical Branch FLUoxetine 2020-0 Yes 10mg Take 10 mg U nivers 10 mg 1-29 by mouth ity of capsule 17:10: daily. [address] aspirin 81 2020-0 Yes 81mg Take 81 mg U nivers mg chewable 1-29 by mouth ity of tablet 17:10: daily. [place] [address] Medical Branch omeprazole 2020-0 Yes 20mg Take 20 mg U nivers 20 mg 1-29 by mouth ity of capsule 17:10: daily. [place] [address] Medical Branch tamsulosin 2020-0 Yes .4mg Take 0.4 Uni vers 0.4 mg 24 1-29 mg by ity of hr capsule 17:10: mouth [place] [address] daily. Medical Branch atorvastati 2020-0 Yes 5mg Take 5 mg U nivers n 10 mg 1-29 by mouth ity of tablet 17:10: at [place] [address] bedtime. Medical Branch FLUoxetine 2020-0 Yes 10mg Take 10 mg U nivers 10 mg 1-29 by mouth ity of capsule 17:10: daily. [place] [address] Medical Branch aspirin 81 2020-0 Yes 81mg Take 81 mg U nivers mg chewable 1-29 by mouth ity of tablet 17:10: daily. [place] [address] Medical Branch omeprazole 2020-0 Yes 20mg Take 20 mg U nivers 20 mg 1-29 by mouth ity of capsule 17:10: daily. [place] [address] Medical Branch tamsulosin 2020-0 Yes .4mg Take 0.4 Uni vers 0.4 mg 24 1-29 mg by ity of hr capsule 17:10: mouth [place] [address] daily. Medical Branch atorvastati 2020-0 Yes 5mg Take 5 mg U nivers n 10 mg 1-29 by mouth ity of tablet 17:10: at [place] [address] bedtime. Medical Branch FLUoxetine 2020-0 Yes 10mg Take 10 mg U nivers 10 mg 1-29 by mouth ity of capsule 17:10: daily. [address] Branch aspirin 81 2020-0 Yes 81mg Take 81 mg U nivers mg chewable 1-29 by mouth ity of tablet 17:10: daily. [place] [address] Medical Branch omeprazole 2020-0 Yes 20mg Take 20 mg U nivers 20 mg 1-29 by mouth ity of capsule 17:10: daily. [place] [address] Medical Branch tamsulosin 2020-0 Yes .4mg Take 0.4 Uni vers 0.4 mg 24 1-29 mg by ity of hr capsule 17:10: mouth [place] [address] daily. Medical Branch atorvastati 2020-0 Yes 5mg Take 5 mg U nivers n 10 mg 1-29 by mouth ity of tablet 17:10: at [place] [address] bedtime. Medical Branch FLUoxetine 2020-0 Yes 10mg Take 10 mg U nivers 10 mg 1-29 by mouth ity of capsule 17:10: daily. [place] [address] Medical Branch aspirin 81 2020-0 Yes 81mg Take 81 mg U nivers mg chewable 1-29 by mouth ity of tablet 17:10: daily. [address] Branch omeprazole 2020-0 Yes 20mg Take 20 mg U nivers 20 mg 1-29 by mouth ity of capsule 17:10: daily. [address] Branch tamsulosin 2020-0 Yes .4mg Take 0.4 Uni vers 0.4 mg 24 1-29 mg by ity of hr capsule 17:10: mouth [place] 53 daily. Medical Branch atorvastati 2020-0 Yes 5mg Take 5 mg U nivers n 10 mg 1-29 by mouth ity of tablet 17:10: at [place] [address] bedtime. Medical Branch FLUoxetine 2020-0 Yes 10mg Take 10 mg U nivers 10 mg 1-29 by mouth ity of capsule 17:10: daily. [place] [address] Medical Branch aspirin 81 2020-0 Yes 81mg Take 81 mg U nivers mg chewable 1-29 by mouth ity of tablet 17:10: daily. [place] [address] Medical Branch omeprazole 2020-0 Yes 20mg Take 20 mg U nivers 20 mg 1-29 by mouth ity of capsule 17:10: daily. [place] [address] Medical Branch tamsulosin 2020-0 Yes .4mg Take 0.4 Uni vers 0.4 mg 24 1-29 mg by ity of hr capsule 17:10: mouth [place] [address] daily. Medical Branch atorvastati 2020-0 Yes 5mg Take 5 mg U nivers n 10 mg 1-29 by mouth ity of tablet 17:10: at [place] [address] bedtime. Medical Branch FLUoxetine 2020-0 Yes 10mg Take 10 mg U nivers 10 mg 1-29 by mouth ity of capsule 17:10: daily. [address] Branch aspirin 81 2020-0 Yes 81mg Take 81 mg U nivers mg chewable 1-29 by mouth ity of tablet 17:10: daily. [place] [address] Medical Branch omeprazole 2020-0 Yes 20mg Take 20 mg U nivers 20 mg 1-29 by mouth ity of capsule 17:10: daily. [place] [address] Medical Branch tamsulosin 2020-0 Yes .4mg Take 0.4 Uni vers 0.4 mg 24 1-29 mg by ity of hr capsule 17:10: mouth [place] 53 daily. Medical Branch atorvastati 2020-0 Yes 5mg Take 5 mg U nivers n 10 mg 1-29 by mouth ity of tablet 17:10: at [place] [address] bedtime. Medical Branch FLUoxetine 2020-0 Yes 10mg Take 10 mg U nivers 10 mg 1-29 by mouth ity of capsule 17:10: daily. [place] [address] Medical Branch aspirin 81 2020-0 Yes 81mg Take 81 mg U nivers mg chewable 1-29 by mouth ity of tablet 17:10: daily. [place] [address] Medical Branch omeprazole 2020-0 Yes 20mg Take 20 mg U nivers 20 mg 1-29 by mouth ity of capsule 17:10: daily. [place] [address] Medical Branch tamsulosin 2020-0 Yes .4mg Take 0.4 Uni vers 0.4 mg 24 1-29 mg by ity of hr capsule 17:10: mouth [place] [address] daily. Medical Branch atorvastati 2020-0 Yes 5mg Take 5 mg U nivers n 10 mg 1-29 by mouth ity of tablet 17:10: at [place] [address] bedtime. Medical Branch FLUoxetine 2020-0 Yes 10mg Take 10 mg U nivers 10 mg 1-29 by mouth ity of capsule 17:10: daily. [address] Branch aspirin 81 2020-0 Yes 81mg Take 81 mg U nivers mg chewable 1-29 by mouth ity of tablet 17:10: daily. [address] Branch omeprazole 2020-0 Yes 20mg Take 20 mg U nivers 20 mg 1-29 by mouth ity of capsule 17:10: daily. [place] [address] Medical Branch tamsulosin 2020-0 Yes .4mg Take 0.4 Uni vers 0.4 mg 24 1-29 mg by ity of hr capsule 17:10: mouth [place] [address] daily. Medical Branch atorvastati 2020-0 Yes 5mg Take 5 mg U nivers n 10 mg 1-29 by mouth ity of tablet 17:10: at [place] [address] bedtime. Medical Branch FLUoxetine 2020-0 Yes 10mg Take 10 mg U nivers 10 mg 1-29 by mouth ity of capsule 17:10: daily. [address] Branch aspirin 81 2020-0 Yes 81mg Take 81 mg U nivers mg chewable 1-29 by mouth ity of tablet 17:10: daily. [place] [address] Medical Branch omeprazole 2020-0 Yes 20mg Take 20 mg U nivers 20 mg 1-29 by mouth ity of capsule 17:10: daily. [place] [address] Medical Branch tamsulosin 2020-0 Yes .4mg Take 0.4 Uni vers 0.4 mg 24 1-29 mg by ity of hr capsule 17:10: mouth [place] [address] daily. Medical Branch atorvastati 2020-0 Yes 5mg Take 5 mg U nivers n 10 mg 1-29 by mouth ity of tablet 17:10: at [place] [address] bedtime. Medical Branch FLUoxetine 2020-0 Yes 10mg Take 10 mg U nivers 10 mg 1-29 by mouth ity of capsule 17:10: daily. [place] [address] Medical Branch aspirin 81 2020-0 Yes 81mg Take 81 mg U nivers mg chewable 1-29 by mouth ity of tablet 17:10: daily. [address] Branch omeprazole 2020-0 Yes 20mg Take 20 mg U nivers 20 mg 1-29 by mouth ity of capsule 17:10: daily. [place] [address] Medical Branch tamsulosin 2020-0 Yes .4mg Take 0.4 Uni vers 0.4 mg 24 1-29 mg by ity of hr capsule 17:10: mouth [place] [address] daily. Medical Branch atorvastati 2020-0 Yes 5mg Take 5 mg U nivers n 10 mg 1-29 by mouth ity of tablet 17:10: at [place] [address] bedtime. Medical Branch FLUoxetine 2020-0 Yes 10mg Take 10 mg U nivers 10 mg 1-29 by mouth ity of capsule 17:10: daily. [address] Branch aspirin 81 2020-0 Yes 81mg Take 81 mg U nivers mg chewable 1-29 by mouth ity of tablet 17:10: daily. [address] Branch omeprazole 2020-0 Yes 20mg Take 20 mg U nivers 20 mg 1-29 by mouth ity of capsule 17:10: daily. [address] tamsulosin 2020-0 Yes .4mg Take 0.4 Uni vers 0.4 mg 24 1-29 mg by ity of hr capsule 17:10: mouth [place] [address] daily. Medical Branch atorvastati 2020-0 Yes 5mg Take 5 mg U nivers n 10 mg 1-29 by mouth ity of tablet 17:10: at [place] [address] bedtime. Medical Branch FLUoxetine 2020-0 Yes 10mg Take 10 mg U nivers 10 mg 1-29 by mouth ity of capsule 17:10: daily. [address] Branch aspirin 81 2020-0 Yes 81mg Take 81 mg U nivers mg chewable 1-29 by mouth ity of tablet 17:10: daily. [address] omeprazole 2020-0 Yes 20mg Take 20 mg U nivers 20 mg 1-29 by mouth ity of capsule 17:10: daily. [place] [address] Medical Branch tamsulosin 2020-0 Yes .4mg Take 0.4 Uni vers 0.4 mg 24 1-29 mg by ity of hr capsule 17:10: mouth [place] [address] daily. Medical Branch atorvastati 2020-0 Yes 5mg Take 5 mg U nivers n 10 mg 1-29 by mouth ity of tablet 17:10: at [place] [address] bedtime. Medical Branch FLUoxetine 2020-0 Yes 10mg Take 10 mg U nivers 10 mg 1-29 by mouth ity of capsule 17:10: daily. [address] Branch aspirin 81 2020-0 Yes 81mg Take 81 mg U nivers mg chewable 1-29 by mouth ity of tablet 17:10: daily. [place] [address] Medical Branch omeprazole 2020-0 Yes 20mg Take 20 mg U nivers 20 mg 1-29 by mouth ity of capsule 17:10: daily. [address] Branch tamsulosin 2020-0 Yes .4mg Take 0.4 Uni vers 0.4 mg 24 1-29 mg by ity of hr capsule 17:10: mouth [place] [address] daily. Medical Branch atorvastati 2020-0 Yes 5mg Take 5 mg U nivers n 10 mg 1-29 by mouth ity of tablet 17:10: at [place] [address] bedtime. Medical Branch FLUoxetine 2020-0 Yes 10mg Take 10 mg U nivers 10 mg 1-29 by mouth ity of capsule 17:10: daily. [address] aspirin 81 2020-0 Yes 81mg Take 81 mg U nivers mg chewable 1-29 by mouth ity of tablet 17:10: daily. [place] [address] Medical Branch omeprazole 2020-0 Yes 20mg Take 20 mg U nivers 20 mg 1-29 by mouth ity of capsule 17:10: daily. [place] [address] Medical Branch tamsulosin 2020-0 Yes .4mg Take 0.4 Uni vers 0.4 mg 24 1-29 mg by ity of hr capsule 17:10: mouth [place] [address] daily. Medical Branch atorvastati 2020-0 Yes 5mg Take 5 mg U nivers n 10 mg 1-29 by mouth ity of tablet 17:10: at [place] [address] bedtime. Medical Branch FLUoxetine 2020-0 Yes 10mg Take 10 mg U nivers 10 mg 1-29 by mouth ity of capsule 17:10: daily. [address] aspirin 81 2020-0 Yes 81mg Take 81 mg U nivers mg chewable 1-29 by mouth ity of tablet 17:10: daily. [place] [address] Medical Branch omeprazole 2020-0 Yes 20mg Take 20 mg U nivers 20 mg 1-29 by mouth ity of capsule 17:10: daily. [place] [address] Medical Branch tamsulosin 2020-0 Yes .4mg Take 0.4 Uni vers 0.4 mg 24 1-29 mg by ity of hr capsule 17:10: mouth [place] 53 daily. Medical Branch atorvastati 2020-0 Yes 5mg Take 5 mg U nivers n 10 mg 1-29 by mouth ity of tablet 17:10: at [place] [address] bedtime. Medical Branch FLUoxetine 2020-0 Yes 10mg Take 10 mg U nivers 10 mg 1-29 by mouth ity of capsule 17:10: daily. [place] [address] Medical Branch metFORMIN 2020-0 2020- No 500mg [...] daily with Medical breakfast. Branch metFORMIN 2020-0 202- No 500mg Take 500 Un karla 500 mg 24 1-29 01-29 mg by ity of hr tablet 17:10: 00:00 mouth [place] 40 :00 daily with Medical breakfast. Branch aspirin 81 2020-0 Yes 81mg Take 81 mg U nivers mg chewable 1-29 by mouth ity of tablet 11:10: daily. [address] Branch omeprazole 2020-0 Yes 20mg Take 20 mg U nivers 20 mg 1-29 by mouth ity of capsule 11:10: daily. [address] tamsulosin 2020-0 Yes .4mg Take 0.4 Uni vers 0.4 mg 24 1-29 mg by ity of hr capsule 11:10: mouth [place] [address] daily. Medical Branch atorvastati 2020-0 Yes 5mg Take 5 mg U nivers n 10 mg 1-29 by mouth ity of tablet 11:10: at [place] [address] bedtime. Medical Branch FLUoxetine 2020-0 Yes 10mg Take 10 mg U nivers 10 mg 1-29 by mouth ity of capsule 11:10: daily. [place] [address] Medical Branch aspirin 81 2020-0 Yes 81mg Take 81 mg U nivers mg chewable 1-29 by mouth ity of tablet 11:10: daily. [place] [address] Medical Branch omeprazole 2020-0 Yes 20mg Take 20 mg U nivers 20 mg 1-29 by mouth ity of capsule 11:10: daily. [place] [address] Medical Branch tamsulosin 2020-0 Yes .4mg Take 0.4 Uni vers 0.4 mg 24 1-29 mg by ity of hr capsule 11:10: mouth [place] [address] daily. Medical Branch atorvastati 2020-0 Yes 5mg Take 5 mg U nivers n 10 mg 1-29 by mouth ity of tablet 11:10: at [place] [address] bedtime. Medical Branch FLUoxetine 2020-0 Yes 10mg Take 10 mg U nivers 10 mg 1-29 by mouth ity of capsule 11:10: daily. [address] Branch aspirin 81 2020-0 Yes 81mg Take 81 mg U nivers mg chewable 1-29 by mouth ity of tablet 11:10: daily. [place] [address] Medical Branch omeprazole 2020-0 Yes 20mg Take 20 mg U nivers 20 mg 1-29 by mouth ity of capsule 11:10: daily. [address] Branch tamsulosin 2020-0 Yes .4mg Take 0.4 Uni vers 0.4 mg 24 1-29 mg by ity of hr capsule 11:10: mouth [place] [address] daily. Medical Branch atorvastati 2020-0 Yes 5mg Take 5 mg U nivers n 10 mg 1-29 by mouth ity of tablet 11:10: at [place] [address] bedtime. Medical Branch FLUoxetine 2020-0 Yes 10mg Take 10 mg U nivers 10 mg 1-29 by mouth ity of capsule 11:10: daily. [address] Branch aspirin 81 2020-0 Yes 81mg Take 81 mg U nivers mg chewable 1-29 by mouth ity of tablet 11:10: daily. [address] omeprazole 2020-0 Yes 20mg Take 20 mg U nivers 20 mg 1-29 by mouth ity of capsule 11:10: daily. [place] 53 Medical Branch tamsulosin 2020-0 Yes .4mg Take 0.4 Uni vers 0.4 mg 24 1-29 mg by ity of hr capsule 11:10: mouth [place] 53 daily. Medical Branch atorvastati 2020-0 Yes 5mg Take 5 mg U nivers n 10 mg 1-29 by mouth ity of tablet 11:10: at [place] 53 bedtime. Medical Branch FLUoxetine 2020-0 Yes 10mg Take 10 mg U nivers 10 mg 1-29 by mouth ity of capsule 11:10: daily. [place] 53 Medical Branch amLODIPine 2020-0 Yes [id number] 10mg Take 1 U nivers 10 mg 1-19 tablet by ity of tablet 00:00: mouth [place] 00 daily. Medical Branch amLODIPine 2020-0 Yes [id number] 10mg Take 1 U nivers 10 mg 1-19 tablet by ity of tablet 00:00: mouth [place] 00 daily. Medical Branch amLODIPine 2020-0 Yes [id number] 10mg Take 1 U nivers 10 mg 1-19 tablet by ity of tablet 00:00: mouth [place] 00 daily. Medical Branch amLODIPine 2020-0 Yes [id number] 10mg Take 1 U nivers 10 mg 1-19 tablet by ity of tablet 00:00: mouth [place] 00 daily. Medical Branch amLODIPine 2020-0 Yes [id number] 10mg Take 1 U nivers 10 mg 1-19 tablet by ity of tablet 00:00: mouth [place] 00 daily. Medical Branch magnesium 2020-0 Yes 400mg Take 1 Unive rs oxide 1-19 tablet by ity of (MAGOX) 400 00:00: mouth [place] mg (241.3 00 daily. Medical mg Branch magnesium) tablet amLODIPine 2020-0 Yes [id number] 10mg Take 1 U nivers 10 mg 1-19 tablet by ity of tablet 00:00: mouth [place] 00 daily. [facility] Branch magnesium 2020-0 Yes 400mg Take 1 Un[facility] rs oxide 1-19 tablet by ity of (MAGOX) 400 00:00: mouth [place] mg (241.3 00 daily. Medical mg Branch magnesium) tablet amLODIPine 2020-0 Yes [id number] 10mg Take 1 U nivers 10 mg 1-19 tablet by ity of tablet 00:00: mouth [place] 00 daily. [facility] magnesium 2020-0 Yes 400mg Take 1 Un[facility] rs oxide 1-19 tablet by ity of (MAGOX) 400 00:00: mouth [place] mg (241.3 00 daily. Medical mg Branch magnesium) tablet amLODIPine 2020-0 Yes [id number] 10mg Take 1 U nivers 10 mg 1-19 tablet by ity of tablet 00:00: mouth [place] 00 daily. [facility] magnesium 2020-0 Yes 400mg Take 1 Unive rs oxide 1-19 tablet by ity of (MAGOX) 400 00:00: mouth [place] mg (241.3 00 daily. Medical mg Branch magnesium) tablet amLODIPine 2020-0 Yes [id number] 10mg Take 1 U nivers 10 mg 1-19 tablet by ity of tablet 00:00: mouth [place] 00 daily. [facility] magnesium 2020-0 Yes 400mg Take 1 Un[facility] rs oxide 1-19 tablet by ity of (MAGOX) 400 00:00: mouth [place] mg (241.3 00 daily. Medical mg Branch magnesium) tablet amLODIPine 2020-0 Yes [id number] 10mg Take 1 U nivers 10 mg 1-19 tablet by ity of tablet 00:00: mouth [place] 00 daily. [facility] magnesium 2020-0 Yes 400mg Take 1 Un[facility] rs oxide 1-19 tablet by ity of (MAGOX) 400 00:00: mouth [place] mg (241.3 00 daily. Medical mg Branch magnesium) tablet amLODIPine 2020-0 Yes [id number] 10mg Take 1 U nivers 10 mg 1-19 tablet by ity of tablet 00:00: mouth [place] 00 daily. [facility] magnesium 2020-0 Yes 400mg Take 1 [facility] rs oxide 1-19 tablet by ity of (MAGOX) 400 00:00: mouth [place] mg (241.3 00 daily. Medical mg Branch magnesium) tablet amLODIPine 2020-0 Yes [id number] 10mg Take 1 [facility] nivers 10 mg 1-19 tablet by ity of tablet 00:00: mouth [place] 00 daily. [facility] amLODIPine 2020-0 Yes [id number] 10mg Take 1 [facility] nivers 10 mg 1-19 tablet by ity of tablet 00:00: mouth [place] 00 daily. [facility] amLODIPine 2020-0 Yes [id number] 10mg Take 1 [facility] nivers 10 mg 1-19 tablet by ity of tablet 00:00: mouth [place] 00 daily. [facility] amLODIPine 2020-0 Yes [id number] 10mg Take 1 [facility] nivers 10 mg 1-19 tablet by ity of tablet 00:00: mouth [place] 00 daily. [facility] amLODIPine Yes [id number] 10mg Take 1 [facility] nivers 10 mg 1-19 tablet by ity of tablet 00:00: mouth [place] 00 daily. [facility] amLODIPine Yes [id number] 10mg Take 1 [facility] nivers 10 mg 1-19 tablet by ity of tablet 00:00: mouth [place] 00 daily. [facility] amLODIPine Yes [id number] 10mg Take 1 [facility] nivers 10 mg 1-19 tablet by ity of tablet 00:00: mouth [place] 00 daily. [facility] amLODIPine Yes [id number] 10mg Take 1 [facility] nivers 10 mg 1-19 tablet by ity of tablet 00:00: mouth [place] 00 daily. [facility] amLODIPine Yes [id number] 10mg Take 1 [facility] nivers 10 mg 1-19 tablet by ity of tablet 00:00: mouth [place] 00 daily. [facility] amLODIPine Yes [id number] 10mg Take 1 [facility] nivers 10 mg 1-19 tablet by ity of tablet 00:00: mouth [place] 00 daily. [facility] amLODIPine Yes [id number] 10mg Take 1 [facility] nivers 10 mg 1-19 tablet by ity of tablet 00:00: mouth [place] 00 daily. [facility] magnesium 2020- No 400mg Take 1 [facility] ers oxide 1-19 03-30 tablet by ity of (MAGOX) 400 00:00: 00:00 mouth [place] mg (241.3 00 :00 daily. Medical mg Branch magnesium) tablet magnesium 2020- No 400mg Take 1 [facility] ers [...] CHANGE IN FORMULATIO N AMLODIPINE 2019-09 Yes [id number] Take 1 [facility] nivers 10 mg 2-08 tablet by ity of tablet 00:00: mouth [place] 00 daily [facility] AMLODIPINE 2020- Yes [id number] Take 1 [facility] nivers 10 mg 2-08 tablet by ity of tablet 00:00: mouth [place] 00 daily [facility] AMLODIPINE 2020- Yes [id number] Take 1 [facility] nivers 10 mg 2-08 tablet by ity of tablet 00:00: mouth once 00 daily [facility] Branch AMLODIPINE 2020- Yes [id number] Take 1 [facility] nivers 10 mg 2-08 tablet by ity of tablet 00:00: mouth once [place] 00 daily Medical Branch AMLODIPINE 2020-1 2020- No [id number] Take 1 [facility] 10 mg 2-08 01-10 tablet by [facility] tablet 00:00: 00:[place] mouth [place] 00 :00 daily [facility] magnesium 2019-0 Yes 400mg Take 1 Un[facility] rs oxide 8-13 tablet by ity of (MAGOX) 400 00:00: mouth [place] mg (241.3 00 daily. Medical mg Call the Branch magnesium) office for tablet more informatio n magnesium Yes 400mg Take 1 Unive rs oxide [...] ADMINISTER IF A MEAL IS MISSED insulin 2019-0 Yes INJECT 6 Univer s aspart, 8-06 UNITS ity of niacinamide 00:00: [place]ER THE [place] , 100 00 SKIN THREE Medical unit/mL (3 TIMES A Branch mL) InPn DAY 5 MINUTES BEFORE MEALS FOR DIABETES. DO NOT ADMINISTER IF A MEAL IS MISSED hydroCHLORO 2020-0 Yes [id number] 25mg Take 1 [facility] thiazide 25 7-17 tablet by ity of mg tablet 00:00: mouth [place] 00 daily. Medical Branch hydroCHLORO 2020-0 Yes [id number] 25mg Take 1 [facility] thiazide 25 7-17 tablet by ity of mg tablet 00:00: mouth [place] 00 daily. [facility] hydroCHLORO 2020-0 Yes [id number] 25mg Take 1 [facility] thiazide 25 7-17 tablet by ity of mg tablet 00:00: mouth [place] 00 daily. [facility] hydroCHLORO 2020-0 Yes [id number] 25mg Take 1 [facility] thiazide 25 7-17 tablet by ity of mg tablet 00:00: mouth [place] 00 daily. [facility] hydroCHLORO 2020-0 Yes [id number] 25mg Take 1 [facility] thiazide 25 7-17 tablet by ity of mg tablet 00:00: mouth [place] 00 daily. [facility] amLODIPine 2020-0 Yes [id number] 10mg Take 1 [facility] nivers 10 mg 7-17 tablet by ity of tablet 00:00: mouth [place] 00 daily. [facility] hydroCHLORO 2020-0 Yes [id number] 25mg Take 1 [facility] thiazide 25 7-17 tablet by ity of mg tablet 00:00: mouth [place] 00 daily. [facility] amLODIPine 2020-0 Yes [id number] 10mg Take 1 [facility] nivers 10 mg 7-17 tablet by ity of tablet 00:00: mouth [place] 00 daily. [facility] hydroCHLORO 2020-0 Yes [id number] 25mg Take 1 [facility] thiazide 25 7-17 tablet by ity of mg tablet 00:00: mouth [place] 00 daily. [facility] amLODIPine 2020-0 Yes [id number] 10mg Take 1 [facility] nivers 10 mg 7-17 tablet by ity of tablet 00:00: mouth [place] 00 daily. [facility] hydroCHLORO 2020-0 Yes [id number] 25mg Take 1 [facility] thiazide 25 7-17 tablet by ity of mg tablet 00:00: mouth [place] 00 daily. [facility] hydroCHLORO 2020-0 Yes [id number] 25mg Take 1 [facility] thiazide 25 7-17 tablet by ity of mg tablet 00:00: mouth [place] 00 daily. [facility] hydroCHLORO 2020-0 Yes [id number] 25mg Take 1 [facility] thiazide 25 7-17 tablet by ity of mg tablet 00:00: mouth [place] 00 daily. [facility] hydroCHLORO 2020-0 Yes [id number] 25mg Take 1 [facility] thiazide 25 7-17 tablet by ity of mg tablet 00:00: mouth [place] 00 daily. [facility] hydroCHLORO 2020-0 Yes [id number] 25mg Take 1 [facility] thiazide 25 7-17 tablet by ity of mg tablet 00:00: mouth [place] 00 daily. [facility] hydroCHLORO 2020-0 Yes [id number] 25mg Take 1 [facility] thiazide 25 7-17 tablet by ity of mg tablet 00:00: mouth [place] 00 daily. [facility] hydroCHLORO 2020-0 Yes [id number] 25mg Take 1 [facility] thiazide 25 7-17 tablet by ity of mg tablet 00:00: mouth [place] 00 daily. [facility] hydroCHLORO 2020-0 Yes [id number] 25mg Take 1 [facility] thiazide 25 7-17 tablet by ity of mg tablet 00:00: mouth [place] 00 daily. [facility] hydroCHLORO 2020-0 Yes [id number] 25mg Take 1 [facility] thiazide 25 7-17 tablet by ity of mg tablet 00:00: mouth [place] 00 daily. [facility] hydroCHLORO 2020-0 Yes [id number] 25mg Take 1 [facility] thiazide 25 7-17 tablet by ity of mg tablet 00:00: mouth [place] 00 daily. [facility] hydroCHLORO 2020-0 Yes [id number] 25mg Take 1 [facility] thiazide 25 7-17 tablet by ity of mg tablet 00:00: mouth [place] 00 daily. [facility] hydroCHLORO 2020-0 Yes [id number] 25mg Take 1 [facility] thiazide 25 7-17 tablet by ity of mg tablet 00:00: mouth [place] 00 daily. [facility] hydroCHLORO 2020-0 Yes [id number] 25mg Take 1 [facility] thiazide 25 7-17 tablet by ity of mg tablet 00:00: mouth [place] 00 daily. [facility] hydroCHLORO 2020-0 Yes [id number] 25mg Take 1 [facility] thiazide 25 7-17 tablet by ity of mg tablet 00:00: mouth [place] 00 daily. [facility] hydroCHLORO 2020-0 Yes [id number] 25mg Take 1 [facility] thiazide 25 7-17 tablet by ity of mg tablet 00:00: mouth [place] 00 daily. [facility] hydroCHLORO 2020-0 Yes [id number] 25mg Take 1 [facility] thiazide 25 7-17 tablet by ity of mg tablet 00:00: mouth [place] 00 daily. [facility] hydroCHLORO 2020-0 Yes [id number] 25mg Take 1 [facility] thiazide 25 7-17 tablet by ity of mg tablet 00:00: mouth [place] 00 daily. [facility] hydroCHLORO 2020-0 Yes [id number] 25mg Take 1 [facility] thiazide 25 7-17 tablet by ity of mg tablet 00:00: mouth [place] 00 daily. [facility] hydroCHLORO 2020-0 Yes [id number] 25mg Take 1 [facility] thiazide 25 7-17 tablet by ity of mg tablet 00:00: mouth [place] 00 daily. [facility] hydroCHLORO 2020-0 Yes [id number] 25mg Take 1 [facility] thiazide 25 7-17 tablet by ity of mg tablet 00:00: mouth [place] 00 daily. [facility] hydroCHLORO 2020-0 Yes [id number] 25mg Take 1 [facility] thiazide 25 7-17 tablet by ity of mg tablet 00:00: mouth [place] 00 daily. [facility] hydroCHLORO 2020-0 Yes [id number] 25mg Take 1 [facility] thiazide 25 7-17 tablet by ity of mg tablet 00:00: mouth [place] 00 daily. [facility] hydroCHLORO 2020-0 Yes [id number] 25mg Take 1 [facility] thiazide 25 7-17 tablet by ity of mg tablet 00:00: mouth [place] 00 daily. [facility] amLODIPine 2019-0 2020- No [id number] 10mg Take 1 [facility] 10 mg 7-17 12-08 tablet by ity of tablet 00:00: 00:00 mouth [place] 00 :00 daily. [facility] docusate 2020-0 Yes [id number] 100mg Take 1 [facility] [place] 100 mg 6-12 capsule by ity of capsule 00:00: mouth [place] 00 daily. [facility] docusate 2020-0 Yes [id number] 100mg Take 1 [facility] [place] 100 mg 6-12 capsule by ity of capsule 00:00: mouth [place] 00 daily. [facility] docusate 2020-0 Yes [id number] 100mg Take 1 [facility] [place] 100 mg 6-12 capsule by ity of capsule 00:00: mouth [place] 00 daily. [facility] docusate 2020-0 Yes [id number] 100mg Take 1 Un [place] 100 mg 6-12 capsule by ity of capsule 00:00: mouth [place] 00 daily. [facility] docusate 2020-0 Yes [id number] 100mg Take 1 [facility] [place] 100 mg 6-12 capsule by ity of capsule 00:00: mouth [place] 00 daily. [facility] hydroCHLORO 2020-0 Yes [id number] 12.5mg Take 1 [facility] thiazide 6-12 capsule by ity o f 12.5 mg 00:00: mouth [place] capsule 00 daily. [facility] amLODIPine 2020-0 Yes [id number] 10mg Take 1 [facility] nivers 10 mg 6-12 tablet by ity of tablet 00:00: mouth [place] 00 daily. [facility] docusate 2020-0 Yes [id number] 100mg Take 1 [facility] [place] 100 mg 6-12 capsule by ity of capsule 00:00: mouth [place] 00 daily. [facility] hydroCHLORO 2020-0 Yes [id number] 12.5mg Take 1 [facility] thiazide 6-12 capsule by ity o f 12.5 mg 00:00: mouth [place] capsule 00 daily. [facility] amLODIPine 2020-0 Yes [id number] 10mg Take 1 [facility] nivers 10 mg 6-12 tablet by ity of tablet 00:00: mouth [place] 00 daily. [facility] docusate 2020-0 Yes [id number] 100mg Take 1 [facility] [place] 100 mg 6-12 capsule by ity of capsule 00:00: mouth [place] 00 daily. [facility] hydroCHLORO 2020-0 Yes [id number] 12.5mg Take 1 [facility] thiazide 6-12 capsule by ity o f 12.5 mg 00:00: mouth [place] capsule 00 daily. [facility] amLODIPine 2020-0 Yes [id number] 10mg Take 1 [facility] nivers 10 mg 6-12 tablet by ity of tablet 00:00: mouth [place] 00 daily. [facility] docusate 2020-0 Yes [id number] 100mg Take 1 [facility] [place] 100 mg 6-12 capsule by ity of capsule 00:00: mouth [place] 00 daily. [facility] hydroCHLORO 2020-0 Yes [id number] 12.5mg Take 1 [facility] thiazide 6-12 capsule by ity o f 12.5 mg 00:00: mouth [place] capsule 00 daily. Medical [facility] amLODIPine 2020-0 Yes [id number] 10mg Take 1 [facility] nivers 10 mg 6-12 tablet by ity of tablet 00:00: mouth [place] 00 daily. [facility] docusate 2020-0 Yes [id number] 100mg Take 1 [facility] [place] 100 mg 6-12 capsule by ity of capsule 00:00: mouth [place] 00 daily. [facility] hydroCHLORO 2020-0 Yes [id number] 12.5mg Take 1 [facility] thiazide 6-12 capsule by ity o f 12.5 mg 00:00: mouth [place] capsule 00 daily. [facility] amLODIPine 2020-0 Yes [id number] 10mg Take 1 [facility] nivers 10 mg 6-12 tablet by ity of tablet 00:00: mouth [place] 00 daily. [facility] docusate 2020-0 Yes [id number] 100mg Take 1 [facility] [place] 100 mg 6-12 capsule by ity of capsule 00:00: mouth [place] 00 daily. [facility] hydroCHLORO 2020-0 Yes [id number] 12.5mg Take 1 [facility] thiazide 6-12 capsule by ity o f 12.5 mg 00:00: mouth [place] capsule 00 daily. Medical Branch amLODIPine 2020-0 Yes [id number] 10mg Take 1 U nivers 10 mg 6-12 tablet by ity of tablet 00:00: mouth [place] 00 daily. [facility] docusate 2020-0 Yes [id number] 100mg Take 1 [facility] [place] 100 mg 6-12 capsule by ity of capsule 00:00: mouth [place] 00 daily. [facility] hydroCHLORO 2020-0 Yes [id number] 12.5mg Take 1 [facility] thiazide 6-12 capsule by ity o f 12.5 mg 00:00: mouth [place] capsule 00 daily. [facility] Branch amLODIPine 2020-0 Yes [id number] 10mg Take 1 [facility] nivers 10 mg 6-12 tablet by ity of tablet 00:00: mouth [place] 00 daily. [facility] docusate 2020-0 Yes [id number] 100mg Take 1 [facility] [place] 100 mg 6-12 capsule by ity of capsule 00:00: mouth [place] 00 daily. [facility] hydroCHLORO 2020-0 Yes [id number] 12.5mg Take 1 [facility] thiazide 6-12 capsule by ity o f 12.5 mg 00:00: mouth [place] capsule 00 daily. [facility] amLODIPine 2020-0 Yes [id number] 10mg Take 1 [facility] nivers 10 mg 6-12 tablet by ity of tablet 00:00: mouth [place] 00 daily. [facility] docusate 2020-0 Yes [id number] 100mg Take 1 [facility] [place] 100 mg 6-12 capsule by ity of capsule 00:00: mouth [place] 00 daily. [facility] docusate 2020-0 Yes [id number] 100mg Take 1 [facility] [place] 100 mg 6-12 capsule by ity of capsule 00:00: mouth [place] 00 daily. [facility] docusate 2020-0 Yes [id number] 100mg Take 1 [facility] [place] 100 mg 6-12 capsule by ity of capsule 00:00: mouth [place] 00 daily. [facility] docusate 2020-0 Yes [id number] 100mg Take 1 [facility] [place] 100 mg 6-12 capsule by ity of capsule 00:00: mouth [place] 00 daily. [facility] docusate 2020-0 Yes [id number] 100mg Take 1 [facility] [place] 100 mg 6-12 capsule by ity of capsule 00:00: mouth [place] 00 daily. [facility] docusate 2020-0 Yes [id number] 100mg Take 1 [facility] [place] 100 mg 6-12 capsule by ity of capsule 00:00: mouth [place] 00 daily. [facility] docusate 2020-0 Yes [id number] 100mg Take 1 [facility] [place] 100 mg 6-12 capsule by ity of capsule 00:00: mouth [place] 00 daily. [facility] docusate 2020-0 Yes [id number] 100mg Take 1 [facility] [place] 100 mg 6-12 capsule by ity of capsule 00:00: mouth [place] 00 daily. [facility] docusate 2020-0 Yes [id number] 100mg Take 1 [facility] [place] 100 mg 6-12 capsule by ity of capsule 00:00: mouth [place] 00 daily. [facility] docusate 2020-0 Yes [id number] 100mg Take 1 [facility] [place] 100 mg 6-12 capsule by ity of capsule 00:00: mouth [place] 00 daily. [facility] docusate 2020-0 Yes [id number] 100mg Take 1 [facility] [place] 100 mg 6-12 capsule by ity of capsule 00:00: mouth [place] 00 daily. [facility] docusate 2020-0 Yes [id number] 100mg Take 1 [facility] [place] 100 mg 6-12 capsule by ity of capsule 00:00: mouth [place] 00 daily. [facility] docusate 2020-0 Yes [id number] 100mg Take 1 [facility] [place] 100 mg 6-12 capsule by ity of capsule 00:00: mouth [place] 00 daily. [facility] docusate 2020-0 Yes [id number] 100mg Take 1 [facility] [place] 100 mg 6-12 capsule by ity of capsule 00:00: mouth [place] 00 daily. [facility] docusate 2020-0 Yes [id number] 100mg Take 1 [facility] [place] 100 mg 6-12 capsule by ity of capsule 00:00: mouth [place] 00 daily. [facility] docusate 2020-0 Yes [id number] 100mg Take 1 [facility] [place] 100 mg 6-12 capsule by ity of capsule 00:00: mouth [place] 00 daily. [facility] docusate 2020-0 Yes [id number] 100mg Take 1 [facility] [place] 100 mg 6-12 capsule by ity of capsule 00:00: mouth [place] 00 daily. [facility] docusate 2020-0 Yes [id number] 100mg Take 1 [facility] [place] 100 mg 6-12 capsule by ity of capsule 00:00: mouth [place] 00 daily. [facility] docusate 2020-0 Yes [id number] 100mg Take 1 [facility] [place] 100 mg 6-12 capsule by ity of capsule 00:00: mouth [place] 00 daily. [facility] docusate 2020-0 Yes [id number] 100mg Take 1 [facility] [place] 100 mg 6-12 capsule by ity of capsule 00:00: mouth [place] 00 daily. [facility] docusate 2020-0 Yes [id number] 100mg Take 1 [facility] [place] 100 mg 6-12 capsule by ity of capsule 00:00: mouth [place] 00 daily. [facility] docusate 2020-0 Yes [id number] 100mg Take 1 [facility] [place] 100 mg 6-12 capsule by ity of capsule 00:00: mouth [place] 00 daily. [facility] docusate 2020-0 Yes [id number] 100mg Take 1 [facility] [place] 100 mg 6-12 capsule by ity of capsule 00:00: mouth [place] 00 daily. [facility] docusate 2020-0 Yes [id number] 100mg Take 1 [facility] [place] 100 mg 6-12 capsule by ity of capsule 00:00: mouth [place] 00 daily. [facility] docusate 2020-0 Yes [id number] 100mg Take 1 [facility] [place] 100 mg 6-12 capsule by ity of capsule 00:00: mouth [place] 00 daily. [facility] Branch docusate 2020-0 Yes [id number] 100mg Take 1 [facility] [place] 100 mg 6-12 capsule by ity of capsule 00:00: mouth [place] 00 daily. [facility] Branch hydroCHLORO 2020-0 2020- No [id number] 12.5mg Take 1 [facility] thiazide 6-12 07-17 capsule by ity of 12.5 mg 00:00: 00:00 mouth [place] capsule 00 :00 daily. Medical Branch amLODIPine 2019-0 2020- No [id number] 10mg Take 1 [facility] 10 mg 6-12 07-16 tablet by ity of tablet 00:00: 00:00 mouth [place] 00 :00 daily. [facility] Branch metFORMIN 2019-0 Yes 500mg Take 500 Uni vers 500 mg 24 6-11 mg by ity of hr tablet 17:50: mouth [place] 22 daily with Medical breakfast. Branch aspirin 81 2019-0 Yes 81mg Take 81 mg U nivers mg chewable 6-11 by mouth ity of tablet 17:50: daily. [place] [address] Medical Branch omeprazole 2020-0 Yes 20mg Take 20 mg U nivers 20 mg 6-11 by mouth ity of capsule 17:50: daily. [place] [address] Medical Branch tamsulosin 2020-0 Yes .4mg Take 0.4 Uni vers 0.4 mg 24 6-11 mg by ity of hr capsule 17:50: mouth [place] 22 daily. Medical Branch atorvastati 2020-0 Yes 5mg Take 5 mg U nivers n 10 mg 6-11 by mouth ity of tablet 17:50: at [place] [address] bedtime. Medical Branch FLUoxetine 2020-0 Yes 10mg Take 10 mg U nivers 10 mg 6-11 by mouth ity of capsule 17:50: daily. [place] [address] Medical Branch metFORMIN 2020-0 Yes 500mg Take 500 Uni vers 500 mg 24 6-11 mg by ity of hr tablet 17:50: mouth [place] 22 daily with Medical breakfast. Branch aspirin 81 2020-0 Yes 81mg Take 81 mg U nivers mg chewable 6-11 by mouth ity of tablet 17:50: daily. [place] [address] Medical Branch omeprazole 2020-0 Yes 20mg Take 20 mg U nivers 20 mg 6-11 by mouth ity of capsule 17:50: daily. [place] [address] Medical Branch tamsulosin 2020-0 Yes .4mg Take [...] by mouth ity of capsule 17:50: daily. [place] [address] Medical Branch metFORMIN 2020-0 Yes 500mg Take 500 Uni vers 500 mg 24 6-11 mg by ity of hr tablet 17:50: mouth [place] 22 daily with Medical breakfast. Branch aspirin 81 2020-0 Yes 81mg Take 81 mg U nivers mg chewable 6-11 by mouth ity of tablet 17:50: daily. [place] [address] Medical Branch omeprazole 2020-0 Yes 20mg Take 20 mg U nivers 20 mg 6-11 by mouth ity of capsule 17:50: daily. [place] [address] [facility] Branch tamsulosin 2020-0 Yes .4mg Take 0.4 Uni vers 0.4 mg 24 6-11 mg by ity of hr capsule 17:50: mouth [place] 22 daily. Medical Branch atorvastati 2020-0 Yes 5mg Take 5 mg U nivers n 10 mg 6-11 by mouth ity of tablet 17:50: at [place] [address] bedtime. Medical Branch FLUoxetine 2020-0 Yes 10mg Take 10 mg U nivers 10 mg 6-11 by mouth ity of capsule 17:50: daily. [place] [address] Medical Branch metFORMIN 2020-0 Yes 500mg Take 500 Uni vers 500 mg 24 6-11 mg by ity of hr tablet 17:50: mouth [place] 22 daily with Medical breakfast. Branch aspirin 81 2020-0 Yes 81mg Take 81 mg U nivers mg chewable 6-11 by mouth ity of tablet 17:50: daily. [place] [address] Medical [place] omeprazole 2020-0 Yes 20mg Take 20 mg U nivers 20 mg 6-11 by mouth ity of capsule 17:50: daily. [place] [address] Medical Branch tamsulosin 2020-0 Yes .4mg Take [...] by mouth ity of capsule 17:50: daily. [place] [address] [facility] Branch metFORMIN 2020-0 Yes 500mg Take 500 [facility] vers 500 mg 24 6-11 mg by ity of hr tablet 17:50: mouth [place] 22 daily with Medical breakfast. Branch aspirin 81 2020-0 Yes 81mg Take 81 mg U nivers mg chewable 6-11 by mouth ity of tablet 17:50: daily. [place] [address] Medical Branch omeprazole 2020-0 Yes 20mg Take 20 mg U nivers 20 mg 6-11 by mouth ity of capsule 17:50: daily. [place] [address] [facility] Branch tamsulosin 2020-0 Yes .4mg Take [...] by mouth ity of capsule 17:50: daily. [place] [address] [facility] Branch metFORMIN 2020-0 Yes 500mg Take 500 [facility] vers 500 mg 24 6-11 mg by ity of hr tablet 17:50: mouth [place] 22 daily with Medical breakfast. Branch aspirin 81 2020-0 Yes 81mg Take 81 mg U nivers mg chewable 6-11 by mouth ity of tablet 17:50: daily. [place] [address] [facility] Branch omeprazole 2020-0 Yes 20mg Take 20 mg [facility] nivers 20 mg 6-11 by mouth ity of capsule 17:50: daily. [place] [address] [facility] Branch tamsulosin 2020-0 Yes .4mg Take [...] by mouth ity of capsule 17:50: daily. [place] [address] [facility] Branch metFORMIN 2020-0 Yes 500mg Take 500 [facility] vers 500 mg 24 6-11 mg by ity of hr tablet 17:50: mouth [place] 22 daily with Medical breakfast. Branch aspirin 81 2020-0 Yes 81mg Take 81 mg U nivers mg chewable 6-11 by mouth ity of tablet 17:50: daily. [place] [address] [facility] Branch omeprazole 2020-0 Yes 20mg Take 20 mg U nivers 20 mg 6-11 by mouth ity of capsule 17:50: daily. [place] [address] [facility] Branch tamsulosin 2020-0 Yes .4mg Take 0.4 Uni vers 0.4 mg 24 6-11 mg by ity of hr capsule 17:50: mouth [place] 22 daily. Medical Branch atorvastati 2020-0 Yes 5mg Take 5 mg U nivers n 10 mg 6-11 by mouth ity of tablet 17:50: at [place] [address] bedtime. Medical Branch FLUoxetine 2020-0 Yes 10mg Take 10 mg U nivers 10 mg 6-11 by mouth ity of capsule 17:50: daily. [place] [address] [facility] Branch metFORMIN 2020-0 Yes 500mg Take 500 [facility] vers 500 mg 24 6-11 mg by ity of hr tablet 17:50: mouth [place] 22 daily with Medical breakfast. Branch aspirin 81 2020-0 Yes 81mg Take 81 mg U nivers mg chewable 6-11 by mouth ity of tablet 17:50: daily. [place] [address] [facility] Branch omeprazole 2020-0 Yes 20mg Take 20 mg [facility] nivers 20 mg 6-11 by mouth ity of capsule 17:50: daily. [place] [address] [facility] Branch tamsulosin 2020-0 Yes .4mg Take 0.4 Uni vers 0.4 mg 24 6-11 mg by ity of hr capsule 17:50: mouth [place] 22 daily. Medical Branch atorvastati 2020-0 Yes 5mg Take 5 mg U nivers n 10 mg 6-11 by mouth ity of tablet 17:50: at [place] 22 bedtime. Medical Branch FLUoxetine 2020-0 Yes 10mg Take 10 mg U nivers 10 mg 6-11 by mouth ity of capsule 17:50: daily. [place] [address] [facility] Branch metFORMIN 2020-0 Yes 500mg Take 500 [facility] vers 500 mg 24 6-11 mg by ity of hr tablet 17:50: mouth [place] 22 daily with Medical breakfast. Branch aspirin 81 2020-0 Yes 81mg Take 81 mg U nivers mg chewable 6-11 by mouth ity of tablet 17:50: daily. [place] [address] [facility] Branch omeprazole 2020-0 Yes 20mg Take 20 mg U nivers 20 mg 6-11 by mouth ity of capsule 17:50: daily. [place] [address] [facility] Branch tamsulosin 2020-0 Yes .4mg Take [...] by mouth ity of capsule 17:50: daily. [place] [address] [facility] Branch metFORMIN 2020-0 Yes 500mg Take 500 [facility] vers 500 mg 24 6-11 mg by ity of hr tablet 17:50: mouth [place] 22 daily with Medical breakfast. Branch aspirin 81 2020-0 Yes 81mg Take 81 mg U nivers mg chewable 6-11 by mouth ity of tablet 17:50: daily. [place] [address] [facility] Branch omeprazole 2020-0 Yes 20mg Take 20 mg U nivers 20 mg 6-11 by mouth ity of capsule 17:50: daily. [place] [address] [facility] Branch tamsulosin 2020-0 Yes .4mg Take [...] by mouth ity of capsule 17:50: daily. [place] [address] [facility] Branch metFORMIN 2020-0 Yes 500mg Take 500 [facility] vers 500 mg 24 6-11 mg by ity of hr tablet 17:50: mouth [place] 22 daily with Medical breakfast. Branch aspirin 81 2020-0 Yes 81mg Take 81 mg U nivers mg chewable 6-11 by mouth ity of tablet 17:50: daily. [place] [address] [facility] Branch omeprazole 2020-0 Yes 20mg Take 20 mg [facility] nivers 20 mg 6-11 by mouth ity of capsule 17:50: daily. [place] [address] [facility] Branch tamsulosin 2020-0 Yes .4mg Take 0.4 Uni vers 0.4 mg 24 6-11 mg by ity of hr capsule 17:50: mouth [place] 22 daily. Medical Branch atorvastati 2020-0 Yes 5mg Take 5 mg U nivers n 10 mg 6-11 by mouth ity of tablet 17:50: at [place] [address] bedtime. Medical Branch FLUoxetine 2020-0 Yes 10mg Take 10 mg U nivers 10 mg 6-11 by mouth ity of capsule 17:50: daily. [place] [address] [facility] Branch metFORMIN 2020-0 Yes 500mg Take 500 Uni vers 500 mg 24 6-11 mg by ity of hr tablet 17:50: mouth [place] 22 daily with Medical breakfast. Branch aspirin 81 2020-0 Yes 81mg Take 81 mg U nivers mg chewable 6-11 by mouth ity of tablet 17:50: daily. [place] [address] Medical Branch omeprazole 2020-0 Yes 20mg Take 20 mg U nivers 20 mg 6-11 by mouth ity of capsule 17:50: daily. [place] [address] Medical Branch tamsulosin 2020-0 Yes .4mg Take 0.4 Uni vers 0.4 mg 24 6-11 mg by ity of hr capsule 17:50: mouth [place] 22 daily. Medical Branch atorvastati 2020-0 Yes 5mg Take 5 mg U nivers n 10 mg 6-11 by mouth ity of tablet 17:50: at [place] [address] bedtime. Medical Branch FLUoxetine 2020-0 Yes 10mg Take 10 mg U nivers 10 mg 6-11 by mouth ity of capsule 17:50: daily. [place] [address] Medical Branch metFORMIN 2020-0 Yes 500mg Take 500 Uni vers 500 mg 24 6-11 mg by ity of hr tablet 17:50: mouth [place] 22 daily with Medical breakfast. Branch aspirin 81 2020-0 Yes 81mg Take 81 mg U nivers mg chewable 6-11 by mouth ity of tablet 17:50: daily. [place] [address] Medical Branch omeprazole 2020-0 Yes 20mg Take 20 mg U nivers 20 mg 6-11 by mouth ity of capsule 17:50: daily. [place] [address] Medical Branch tamsulosin 2020-0 Yes .4mg Take 0.4 Uni vers 0.4 mg 24 6-11 mg by ity of hr capsule 17:50: mouth [place] 22 daily. Medical Branch atorvastati 2020-0 Yes 5mg Take 5 mg U nivers n 10 mg 6-11 by mouth ity of tablet 17:50: at [place] [address] bedtime. Medical Branch FLUoxetine 2020-0 Yes 10mg Take 10 mg U nivers 10 mg 6-11 by mouth ity of capsule 17:50: daily. [place] [address] Medical Branch metFORMIN 2020-0 Yes 500mg Take 500 Uni vers 500 mg 24 6-11 mg by ity of hr tablet 17:50: mouth [place] 22 daily with Medical breakfast. Branch aspirin 81 2020-0 Yes 81mg Take 81 mg U nivers mg chewable 6-11 by mouth ity of tablet 17:50: daily. [place] [address] Medical Branch omeprazole 2020-0 Yes 20mg Take 20 mg U nivers 20 mg 6-11 by mouth ity of capsule 17:50: daily. [place] [address] Medical Branch tamsulosin 2020-0 Yes .4mg Take 0.4 Uni vers 0.4 mg 24 6-11 mg by ity of hr capsule 17:50: mouth [place] 22 daily. Medical Branch atorvastati 2020-0 Yes 5mg Take 5 mg U nivers n 10 mg 6-11 by mouth ity of tablet 17:50: at [place] [address] bedtime. Medical Branch FLUoxetine 2020-0 Yes 10mg Take 10 mg U nivers 10 mg 6-11 by mouth ity of capsule 17:50: daily. [place] [address] Medical Branch metFORMIN 2020-0 Yes 500mg Take 500 Uni vers 500 mg 24 6-11 mg by ity of hr tablet 17:50: mouth [place] 22 daily with Medical breakfast. Branch aspirin 81 2020-0 Yes 81mg Take 81 mg U nivers mg chewable 6-11 by mouth ity of tablet 17:50: daily. [place] [address] Medical Branch omeprazole 2020-0 Yes 20mg Take 20 mg U nivers 20 mg 6-11 by mouth ity of capsule 17:50: daily. [place] [address] Medical Branch tamsulosin 2020-0 Yes .4mg Take 0.4 Uni vers 0.4 mg 24 6-11 mg by ity of hr capsule 17:50: mouth [place] [address] daily. Medical Branch atorvastati 2020-0 Yes 5mg Take 5 mg U nivers n 10 mg 6-11 by mouth ity of tablet 17:50: at [place] [address] bedtime. Medical Branch FLUoxetine 2020-0 Yes 10mg Take 10 mg U nivers 10 mg 6-11 by mouth ity of capsule 17:50: daily. [place] [address] Medical Branch metFORMIN 2020-0 Yes 500mg Take 500 Uni vers 500 mg 24 6-11 mg by ity of hr tablet 17:50: mouth [place] [address] daily with Medical breakfast. Branch aspirin 81 2020-0 Yes 81mg Take 81 mg U nivers mg chewable 6-11 by mouth ity of tablet 17:50: daily. [place] [address] Medical Branch omeprazole 2020-0 Yes 20mg Take 20 mg U nivers 20 mg 6-11 by mouth ity of capsule 17:50: daily. [place] [address] Medical Branch tamsulosin 2020-0 Yes .4mg Take 0.4 Uni vers 0.4 mg 24 6-11 mg by ity of hr capsule 17:50: mouth [place] [address] daily. Medical Branch atorvastati 2020-0 Yes 5mg Take 5 mg U nivers n 10 mg 6-11 by mouth ity of tablet 17:50: at [place] [address] bedtime. Medical Branch FLUoxetine 2020-0 Yes 10mg Take 10 mg U nivers 10 mg 6-11 by mouth ity of capsule 17:50: daily. [place] [address] Medical Branch hydroCHLORO 2020-0 2020- No 25mg Take 25 mg Univers thiazide 25 -02-16 by mouth ity of mg tablet 15:13: 00:00 daily. [place] 33 :00 Medical Branch lisinopril 2020-0 2020- No 20mg Take 20 mg Univers 20 mg -11 02-16 by mouth ity of tablet 15:13: 00:00 daily. [place] 33 :00 Medical Branch hydroCHLORO 2020-0 Yes 12.5mg 12.5 mg, Univers thiazide 6-11 Oral, ity of (ESIDRIX) 14:00: DAILY, [place] capsule 00 First dose Medica l 12.5 mg on [...] Subcutaneo ity of U-100 02:00: us, QHS, [place] (LEVEMIR 00 First dose Medic al U-100 on Fri Branch INSULIN) 02/16/20 at injection 2100, 45 Units Until Discontinu ed, Routine Sliding 2020-0 Yes Subcutaneo Univ ers Scale 6-11 us, Q4H, ity of Insulin - 01:00: First dose [place] Aspart 00 on Fri Medical (NOVOLOG) + 02/16/20 at Br anch Fsbg 2000, Testing Until Discontinu ed, Routine acetaminoph 2020-0 Yes [id number] 1000mg Take 2 Univers en 500 mg 6-11 tablets by ity of tablet 00:00: mouth [place] 00 every 8 Medical (eight) Branch hours as needed for Pain. acetaminoph 2020-0 Yes [id number] 1000mg Take 2 Univers en 500 mg 6-11 tablets by ity of tablet 00:00: mouth [place] 00 every 8 Medical (eight) Branch hours as needed for Pain. acetaminoph 2020-0 Yes [id number] 1000mg Take 2 Univers en 500 mg 6-11 tablets by ity of tablet 00:00: mouth [place] 00 every 8 Medical (eight) Branch hours as needed for Pain. acetaminoph 2020-0 Yes [id number] 1000mg Take 2 Univers en 500 mg 6-11 tablets by ity of tablet 00:00: mouth [place] 00 every 8 Medical (eight) Branch hours as needed for Pain. acetaminoph 2020-0 Yes [id number] 1000mg Take 2 Univers en 500 mg 6-11 tablets by ity of tablet 00:00: mouth [place] 00 every 8 Medical (eight) Branch hours as needed for Pain. acetaminoph 2020-0 Yes [id number] 1000mg Take 2 [facility] en 500 mg 6-11 tablets by ity of tablet 00:00: mouth [place] 00 every 8 Medical (eight) Branch hours as needed for Pain. methocarbam 2020-0 Yes [id number] 500mg Take 1 [facility] ol 500 mg 6-11 tablet by ity o f tablet 00:00: mouth 00 (four) Medical times Branch daily as needed (muscle spasms). acetaminoph 2020-0 Yes [id number] 1000mg Take 2 [facility] en 500 mg 6-11 tablets by ity of tablet 00:00: mouth [place] 00 every 8 Medical (eight) Branch hours as needed for Pain. methocarbam 2020-0 Yes [id number] 500mg Take 1 [facility] ol 500 mg 6-11 tablet by ity o f tablet 00:00: mouth 00 (four) Medical times Branch daily as needed (muscle spasms). acetaminoph 2020-0 Yes [id number] 1000mg Take 2 [facility] en 500 mg 6-11 tablets by ity of tablet 00:00: mouth [place] 00 every 8 Medical (eight) Branch hours as needed for Pain. methocarbam 2020-0 Yes [id number] 500mg Take 1 [facility] ol 500 mg 6-11 tablet by ity o f tablet 00:00: mouth 00 (four) Medical times Branch daily as needed (muscle spasms). acetaminoph 2020-0 Yes [id number] 1000mg Take 2 [facility] en 500 mg 6-11 tablets by ity of tablet 00:00: mouth [place] 00 every 8 Medical (eight) Branch hours as needed for Pain. methocarbam 2020-0 Yes [id number] 500mg Take 1 [facility] ol 500 mg 6-11 tablet by ity o f tablet 00:00: mouth (four) Medical times Branch daily as needed (muscle spasms). acetaminoph 2020-0 Yes [id number] 1000mg Take 2 [facility] en 500 mg 6-11 tablets by ity of tablet 00:00: mouth [place] 00 every 8 Medical (eight) Branch hours as needed for Pain. methocarbam 2020-0 Yes [id number] 500mg Take 1 [facility] ol 500 mg 6-11 tablet by ity o f tablet 00:00: mouth 4 00 (four) Medical times Branch daily as needed (muscle spasms). acetaminoph 2020-0 Yes [id number] 1000mg Take 2 [facility] en 500 mg 6-11 tablets by ity of tablet 00:00: mouth [place] 00 every 8 Medical (eight) Branch hours as needed for Pain. methocarbam 2020-0 Yes [id number] 500mg Take 1 [facility] ol 500 mg 6-11 tablet by ity o f tablet 00:00: mouth (four) Medical times Branch daily as needed (muscle spasms). acetaminoph 2020-0 Yes [id number] 1000mg Take 2 [facility] en 500 mg 6-11 tablets by ity of tablet 00:00: mouth [place] 00 every 8 Medical (eight) Branch hours as needed for Pain. methocarbam 2020-0 Yes [id number] 500mg Take 1 [facility] ol 500 mg 6-11 tablet by ity o f tablet 00:00: mouth 00 (four) Medical times Branch daily as needed (muscle spasms). acetaminoph 2020-0 Yes [id number] 1000mg Take 2 [facility] en 500 mg 6-11 tablets by ity of tablet 00:00: mouth [place] 00 every 8 Medical (eight) Branch hours as needed for Pain. methocarbam 2020-0 Yes [id number] 500mg Take 1 [facility] ol 500 mg 6-11 tablet by ity o f tablet 00:00: mouth (four) Medical times Branch daily as needed (muscle spasms). acetaminoph 2020-0 Yes [id number] 1000mg Take 2 [facility] en 500 mg 6-11 tablets by ity of tablet 00:00: mouth [place] 00 every 8 Medical (eight) Branch hours as needed for Pain. methocarbam 2020-0 Yes [id number] 500mg Take 1 [facility] ol 500 mg 6-11 tablet by ity o f tablet 00:00: mouth (four) Medical times Branch daily as needed (muscle spasms). acetaminoph 2020-0 Yes [id number] 1000mg Take 2 [facility] en 500 mg 6-11 tablets by ity of tablet 00:00: mouth [place] 00 every 8 Medical (eight) Branch hours as needed for Pain. methocarbam 2020-0 Yes [id number] 500mg Take 1 [facility] ol 500 mg 6-11 tablet by ity o f tablet 00:00: mouth (four) Medical times Branch daily as needed (muscle spasms). acetaminoph 2020-0 Yes [id number] 1000mg Take 2 Univers en 500 mg 6-11 tablets by ity of tablet 00:00: mouth [place] 00 every 8 Medical (eight) Branch hours as needed for Pain. methocarbam 2020-0 Yes [id number] 500mg Take 1 Univers ol 500 mg 6-11 tablet by ity o f tablet 00:00: mouth 4 00 (four) Medical times Branch daily as needed (muscle spasms). acetaminoph 2020-0 Yes [id number] 1000mg Take 2 Univers en 500 mg 6-11 tablets by ity of tablet 00:00: mouth [place] 00 every 8 Medical (eight) Branch hours as needed for Pain. methocarbam 2020-0 Yes [id number] 500mg Take 1 [facility] ol 500 mg 6-11 tablet by ity o f tablet 00:00: mouth 4 [place] 00 (four) Medical times Branch daily as needed (muscle spasms). acetaminoph 2020-0 Yes [id number] 1000mg Take 2 [facility] en 500 mg 6-11 tablets by ity of tablet 00:00: mouth [place] 00 every 8 Medical (eight) Branch hours as needed for Pain. methocarbam 2020-0 Yes [id number] 500mg Take 1 [facility] ol 500 mg 6-11 tablet by ity o f tablet 00:00: mouth 00 (four) Medical times Branch daily as needed (muscle spasms). acetaminoph 2020-0 Yes [id number] 1000mg Take 2 Univers en 500 mg 6-11 tablets by ity of tablet 00:00: mouth [place] 00 every 8 Medical (eight) Branch hours as needed for Pain. methocarbam 2020-0 Yes [id number] 500mg Take 1 [facility] ol 500 mg 6-11 tablet by ity o f tablet 00:00: mouth (four) Medical times Branch daily as needed (muscle spasms). acetaminoph 2020-0 Yes [id number] 1000mg Take 2 [facility] en 500 mg 6-11 tablets by ity of tablet 00:00: mouth [place] 00 every 8 Medical (eight) Branch hours as needed for Pain. methocarbam 2020-0 Yes [id number] 500mg Take 1 [facility] ol 500 mg 6-11 tablet by ity o f tablet 00:00: mouth 4 00 (four) Medical times Branch daily as needed (muscle spasms). acetaminoph 2020-0 Yes [id number] 1000mg Take 2 [facility] en 500 mg 6-11 tablets by ity of tablet 00:00: mouth [place] 00 every 8 Medical (eight) Branch hours as needed for Pain. methocarbam 2020-0 Yes [id number] 500mg Take 1 [facility] ol 500 mg 6-11 tablet by ity o f tablet 00:00: mouth 4 00 (four) Medical times Branch daily as needed (muscle spasms). acetaminoph 2020-0 Yes [id number] 1000mg Take 2 Univers en 500 mg 6-11 tablets by ity of tablet 00:00: mouth [place] 00 every 8 Medical (eight) Branch hours as needed for Pain. methocarbam 2020-0 Yes [id number] 500mg Take 1 Univers ol 500 mg 6-11 tablet by ity o f tablet 00:00: mouth 00 (four) Medical times Branch daily as needed (muscle spasms). acetaminoph 2020-0 Yes [id number] 1000mg Take 2 Univers en 500 mg 6-11 tablets by ity of tablet 00:00: mouth [place] 00 every 8 Medical (eight) Branch hours as needed for Pain. methocarbam 2020-0 Yes [id number] 500mg Take 1 [facility] ol 500 mg 6-11 tablet by ity o f tablet 00:00: mouth (four) Medical times Branch daily as needed (muscle spasms). acetaminoph 2020-0 Yes [id number] 1000mg Take 2 Univers en 500 mg 6-11 tablets by ity of tablet 00:00: mouth [place] 00 every 8 Medical (eight) Branch hours as needed for Pain. methocarbam 2020-0 Yes [id number] 500mg Take 1 Univers ol 500 mg 6-11 tablet by ity o f tablet 00:00: mouth (four) Medical times Branch daily as needed (muscle spasms). acetaminoph 2020-0 Yes [id number] 1000mg Take 2 Univers en 500 mg 6-11 tablets by ity of tablet 00:00: mouth [place] 00 every 8 Medical (eight) Branch hours as needed for Pain. methocarbam 2020-0 Yes [id number] 500mg Take 1 [facility] ol 500 mg 6-11 tablet by ity o f tablet 00:00: mouth (four) Medical times Branch daily as needed (muscle spasms). acetaminoph 2020-0 Yes [id number] 1000mg Take 2 [facility] en 500 mg 6-11 tablets by ity of tablet 00:00: mouth [place] 00 every 8 Medical (eight) Branch hours as needed for Pain. methocarbam 2020-0 Yes [id number] 500mg Take 1 Univers ol 500 mg 6-11 tablet by ity o f tablet 00:00: mouth 4 [place] 00 (four) Medical times Branch daily as needed (muscle spasms). acetaminoph 2020-0 Yes [id number] 1000mg Take 2 Univers en 500 mg 6-11 tablets by ity of tablet 00:00: mouth [place] 00 every 8 Medical (eight) Branch hours as needed for Pain. methocarbam 2020-0 Yes [id number] 500mg Take 1 [facility] ol 500 mg 6-11 tablet by ity o f tablet 00:00: mouth (four) Medical times Branch daily as needed (muscle spasms). acetaminoph 2020-0 Yes [id number] 1000mg Take 2 [facility] en 500 mg 6-11 tablets by ity of tablet 00:00: mouth 00 every 8 Medical (eight) Branch hours as needed for Pain. methocarbam 2020-0 Yes [id number] 500mg Take 1 [facility] ol 500 mg 6-11 tablet by ity o f tablet 00:00: mouth (four) Medical times Branch daily as needed (muscle spasms). acetaminoph 2020-0 Yes [id number] 1000mg Take 2 [facility] en 500 mg 6-11 tablets by ity of tablet 00:00: mouth [place] 00 every 8 Medical (eight) Branch hours as needed for Pain. methocarbam 2020-0 Yes [id number] 500mg Take 1 [facility] ol 500 mg 6-11 tablet by ity o f tablet 00:00: mouth (four) Medical times Branch daily as needed (muscle spasms). acetaminoph 2020-0 Yes [id number] 1000mg Take 2 [facility] en 500 mg 6-11 tablets by ity of tablet 00:00: mouth 00 every 8 Medical (eight) Branch hours as needed for Pain. methocarbam 2020-0 Yes [id number] 500mg Take 1 [facility] ol 500 mg 6-11 tablet by ity o f tablet 00:00: mouth (four) Medical times Branch daily as needed (muscle spasms). acetaminoph 2020-0 Yes [id number] 1000mg Take 2 [facility] en 500 mg 6-11 tablets by ity of tablet 00:00: mouth [place] 00 every 8 Medical (eight) Branch hours as needed for Pain. methocarbam 2020-0 Yes [id number] 500mg Take 1 [facility] ol 500 mg 6-11 tablet by ity o f tablet 00:00: mouth (four) Medical times Branch daily as needed (muscle spasms). acetaminoph 2020-0 Yes [id number] 1000mg Take 2 [facility] en 500 mg 6-11 tablets by ity of tablet 00:00: mouth [place] 00 every 8 Medical (eight) Branch hours as needed for Pain. methocarbam 2020-0 Yes [id number] 500mg Take 1 [facility] ol 500 mg 6-11 tablet by ity o f tablet 00:00: mouth 4 00 (four) Medical times Branch daily as needed (muscle spasms). acetaminoph 2020-0 Yes [id number] 1000mg Take 2 [facility] en 500 mg 6-11 tablets by ity of tablet 00:00: mouth [place] 00 every 8 Medical (eight) Branch hours as needed for Pain. methocarbam 2020-0 Yes [id number] 500mg Take 1 [facility] ol 500 mg 6-11 tablet by ity o f tablet 00:00: mouth (four) Medical times Branch daily as needed (muscle spasms). acetaminoph 2020-0 Yes [id number] 1000mg Take 2 [facility] en 500 mg 6-11 tablets by ity of tablet 00:00: mouth [place] 00 every 8 Medical (eight) Branch hours as needed for Pain. methocarbam 2020-0 Yes [id number] 500mg Take 1 [facility] ol 500 mg 6-11 tablet by ity o f tablet 00:00: mouth 00 (four) Medical times Branch daily as needed (muscle spasms). acetaminoph 2020-0 Yes [id number] 1000mg Take 2 [facility] en 500 mg 6-11 tablets by ity of tablet 00:00: mouth [place] 00 every 8 Medical (eight) Branch hours as needed for Pain. methocarbam 2020-0 Yes [id number] 500mg Take 1 [facility] ol 500 mg 6-11 tablet by ity o f tablet 00:00: mouth (four) Medical times Branch daily as needed (muscle spasms). acetaminoph 2020-0 Yes [id number] 1000mg Take 2 [facility] en 500 mg 6-11 tablets by ity of tablet 00:00: mouth [place] 00 every 8 Medical (eight) Branch hours as needed for Pain. methocarbam 2020-0 Yes [id number] 500mg Take 1 [facility] ol 500 mg 6-11 tablet by ity o f tablet 00:00: mouth 4 00 (four) Medical times Branch daily as needed (muscle spasms). acetaminoph 2020-0 Yes [id number] 1000mg Take 2 [facility] en 500 mg 6-11 tablets by ity of tablet 00:00: mouth [place] 00 every 8 Medical (eight) Branch hours as needed for Pain. acetaminoph 2020-0 Yes [id number] 1000mg Take 2 [facility] en 500 mg 6-11 tablets by ity of tablet 00:00: mouth [place] 00 every 8 Medical (eight) Branch hours as needed for Pain. methocarbam 2020-0 2020- No [id number] 500mg Take 1 [facility] ol 500 mg 6-11 - tablet by ity of tablet 00:00: 00:00 mouth 4 [place] 00 :00 (four) Medical times Branch daily as needed (muscle spasms). methocarbam 2020-0 2020- No [id number] 500mg Take 1 Univers ol 500 mg 6-07 15- tablet by ity of tablet 00:00: 00:00 mouth 4 [place] 00 :00 (four) Medical times Branch daily as needed (muscle spasms). magnesium 2020-0 2019- No 30mL 30 mL, Unive rs hydroxide -06 13- Oral, ity of (MILK OF 23:00: 00:32 ONCE, 1 [place] MAGNESIA) 00 :00 dose, Wed Medic al 400 mg/5 mL 02/16/20 at Br anch suspension 1800, 30 mL Routine bisacodyL 2019-0 Yes 10mg 10 mg, Univer s (DULCOLAX) 6-10 Rectal, ity of suppository 21:30: BID, First [place] 10 mg 00 dose on Medical Wed Branch 02/16/20 at 1630, Until Discontinu ed, Routine Sliding 2019-0 2020- No Subcutaneo Uni vers Scale 02-15 06-10 us, Q4H, ity of Insulin - 17:00: 21:27 First dose [place] Aspart 00 :26 on Fri Medical (NOVOLOG) + 02/16/20 at Br anch Fsbg 1200, Testing Until Discontinu ed, Routine Polyethylen 2020-0 Yes 17g 17 g, Unive rs e Glycol 6-10 Oral, BID, ity o f 3350 13:15: First dose [place] (MIRALAX) 00 on Fri Medical powder 17 g 02/16/20 at Br anch 0815, Until Discontinu ed, Routine D5W 0.45% 2019-0 2020- No IV Univers NaCl 6-10 06-10 Infusion, ity of (1/2NS) 1 L 11:00: 12:13 at 20 [place] + KCL 20 00 :20 mL/hr, Medical mEq CONTINUOUS Branch , Starting Fri02/16/20 at 0600, Until Fri02/16/20 at 0713, Routine amLODIPine 2020-0 2020- No 5mg 5 mg, Unive rs (NORVASC) 02-14-11 Oral, ity of tablet 5 mg 14:00: 11:43 DAILY, [place] 00 :37 First dose Medical on Fri02/15/20 at 0900, Until Discontinu ed, Routine D5W 0.45% 2020-0 2020- No IV Univers NaCl 02-14 Infusion, ity of (1/2NS) 1 L 12:45: [...] Yes .4mg 0.4 mg, Univ ers (FLOMAX) 02-13 Oral, ity of capsule 0.4 14:00: DAILY, [place] mg 00 First dose Medical on Fri02/14/20 at 0900, Until Discontinu ed, Routine omeprazole 2020-0 Yes 20mg 20 mg, Unive rs (PRILOSEC) 02-13 Oral, ity of capsule 20 14:00: DAILY, [place] mg 00 First dose Medical on Fri02/14/20 at 0900, Until Discontinu ed, Routine aspirin 2020-0 Yes 81mg 81 mg, Univers chewable 02-13 Oral, ity of tablet 81 14:00: DAILY, [place] mg 00 First dose Medical on Fri02/14/20 at 0900, Until Discontinu ed, Routine lactated 2020-0 2020- No 500mL at 999 Unive rs ringers IV 6-08 06-08 mL/hr, 500 it y of infusion 03:15: 02:09 mL, [place] 500 mL 00 :00 Intravenou Medical s, ONCE, 1 Branch dose, [place] 02/13/20 at 2215, Routine atorvastati 2020-0 Yes 5mg 5 mg, Unive rs n (LIPITOR) 6-08 Oral, QHS, it y of tablet 5 mg 02:00: First dose [place] [facility] on [facility] 02/13/20 at Branch 2100, Until Discontinu ed, Routine lactated 2020-0 2020- No 1000mL at 999 Univ ers ringers IV 02-12-07 mL/hr, ity of infusion 19:15: 18:24 1,000 mL, [place] 1,000 mL 00 :00 Intravenou Medic al s, ONCE, 1 [place] dose, [place] 02/13/20 at 1415, Routine bisacodyL 2020-0 2020- No 10mg 10 mg, Unive rs (DULCOLAX) 02-12-07 Rectal, ity o f suppository 19:15: 19:44 ONCE NOW, [place] 10 mg 00 :00 1 dose, Medical [place] 02/13/20 Branch at 1415, Routine ondansetron 2020-0 Yes 4mg 4 mg, Slow Univers (ZOFRAN 02-12 IV Push, ity of (PF)) 15:36: Q6HPRN, [place] injection 4 56 Starting Medi arely mg [place] 02/13/20 Branch at 1036, Until Discontinu ed, Routine, Nausea and Vomiting (N/V) docusate 2020-0 Yes 100mg 100 mg, Unive rs (COLACE) - Oral, ity of capsule 100 14:00: DAILY, [place] mg 00 First dose Medical on [facility] Branch 02/12/20 at 0900, Until Discontinu ed, Routine methocarbam 2020-0 Yes 500mg 500 mg, Un karla ol 6-06 Oral, QID, ity of (ROBAXIN) 01:00: First dose [place] tablet 500 00 on Fri Medical mg 02/11/20 at Branch 2000, Until Discontinu ed, Routine gabapentin 2020-0 2020- No 100mg 100 mg, Un karla (NEURONTIN) 02-11 06-08 Oral, TID, i ty of capsule 100 01:00: 13:29 First dose [place] mg 00 :41 on Fri Medical 02/11/20 at Branch 2000, Until Discontinu ed, Routine morpHINE 30 2019- No Unive rs mg/30 mL 02-1007 ity of (fixed 23:15: 18:59 [place] dose) [employer] 00 :51 Medical injection [place] acetaminoph Yes 1000mg 1,000 mg, Univers en 05 Oral, Q6H, ity of (TYLENOL) 23:00: First dose [place] tablet 00 on Fri Medical 1,000 mg 02/11/20 at Branch 1800, Until Discontinu ed, Routine Sliding 2019- No Subcutaneo Uni vers Scale 02-10 06-10 us, TID ity of Insulin - 22:00: [...] Branch 02/11/20 at 1645, STAT FENTanyl PF 2019- No 75ug 75 mcg, Un karla (SUBLIMAZE 02-10 Slow IV ity o f (PF)) 19:00: 17:52 Push, [place] injection 00 :00 ONCE, 1 Medical 75 mcg dose, Fri Branch 02/11/20 at 1400, STAT FENTanyl PF 2019- 2020- No 75ug 75 mcg, Un karla (SUBLIMAZE 02-10 Slow IV ity o f (PF)) 18:45: 17:37 Push, [place] injection 00 :00 ONCE, 1 Medical 75 mcg dose, Fri Branch 02/11/20 at 1345, STAT ceFAZolin 2019- No 1000mg 1,000 mg, Univers (ANCEF) 02-10 IV ity of 1,000 mg in 18:45: 18:06 Piggyback, [place] NaCl 0.9% 00 :00 ONCE, 1 Medical (NS) 50 mL dose, Fri Bran ch MINI-BAG 02/11/20 at 1345, 50 mL
Reas on for Anti-Infec tive: Surgical Prophylaxi s
Surgi arely Prophylaxi s: Cardiothor acic
Du ration of therapy: within 24 hours of surgery ondansetron 2019- No 4mg 4 mg, Slow Univers (ZOFRAN 02-10 IV Push, ity of (PF)) 18:15: 17:05 ONCE, 1 [place] injection 4 00 :00 dose, Fri Med ical mg 02/11/20 at Branch 1315, DANNY FENTanyl PF No 75ug 75 mcg, Un karla (SUBLIMAZE 02-10 Slow IV ity o f (PF)) 18:15: 17:04 Push, [place] injection 00 :00 ONCE, 1 Medical 75 mcg dose, Fri Branch 02/11/20 at 1315, Routine iohexol 2019- No 120mL 120 mL, Unive rs (OMNIPAQUE 02-10 Intravenou it y of 350 17:45: 17:32 s, ONCE, 1 [place] BULK-150 00 :00 dose, Fri Medica l mL) 02/11/20 at [place] injection 1245, 120 mL Routine contrast 2019- 2020- No Intravenou Un karla previously 02-10 s, ONCE, 1 it y of administere 17:45: 17:32 dose, Fri [place] d 0 mL 00 :00 02/11/20 at [facility] [address] [place] [address] Routine Immunizations Ordered Filled Date Status Comments Source Immunization Name Immunization Name SARS-COV-2 COVID-19 2020-11-14 Completed Unive rsity of PFIZER VACCINE 00:00:00 [facility] SARS-COV-2 COVID-19 2020-11-14 Completed Unive rsity of PFIZER VACCINE 00:00:00 [facility] SARS-COV-2 COVID-19 2020-11-14 Completed Unive rsity of PFIZER VACCINE 00:00:00 [facility] SARS-COV-2 COVID-19 2020-11-14 Completed Unive rsity of PFIZER VACCINE 00:00:00 [facility] SARS-COV-2 COVID-19 2020-11-14 Completed Unive rsity of PFIZER VACCINE 00:00:00 [facility] SARS-COV-2 COVID-19 2020-11-14 Completed Unive rsity of PFIZER VACCINE 00:00:00 [facility] SARS-COV-2 COVID-19 2020-11-14 Completed Unive rsity of PFIZER VACCINE 00:00:00 [facility] SARS-COV-2 COVID-19 2020-11-14 Completed Unive rsity of PFIZER VACCINE 00:00:00 [facility] SARS-COV-2 COVID-19 2020-11-14 Completed Unive rsity of PFIZER VACCINE 00:00:00 [facility] SARS-COV-2 COVID-19 2020-11-14 Completed Unive rsity of PFIZER VACCINE 00:00:00 [facility] SARS-COV-2 COVID-19 2020-11-14 Completed Unive rsity of PFIZER VACCINE 00:00:00 [facility] SARS-COV-2 COVID-19 2020-11-14 Completed Unive rsity of PFIZER VACCINE 00:00:00 [facility] Influenza High Dose 2020-06-22 Completed [facility] Influenza High Dose 2020-06-22 Completed [facility] Influ[facility] High Dose 2020-06-22 Completed [facility] Influenza High Dose 2020-06-22 Completed [facility]ive rsity of 00:00:00 [facility] Influenza High Dose 2020-06-22 Completed [facility] Influenza High Dose 2020-06-22 Completed Unive rsity of 00:00:00 [facility] Influenza High Dose 2020-06-22 Completed [facility] Influenza High Dose 2020-06-22 Completed [facility] Influenza High Dose 2020-06-22 Completed [facility] Influenza High Dose 2020-06-22 Completed [facility] Influenza High Dose 2020-06-22 Completed [facility] Influenza High Dose 2020-06-22 Completed [facility] Influenza High Dose 2020-06-22 Completed [facility] 00:[facility] Influenza High Dose 2020-06-22 Completed [facility] Influenza High Dose 2020-06-22 Completed [facility] Influenza High Dose 2020-06-22 Completed [facility] Influenza High Dose 2020-06-22 Completed [facility] Influenza High Dose 2020-06-22 Completed [facility] Pneumococcal 2019-03-17 Completed University o f Polysaccharide, [...] [place] [facility] PPSV23 (PNEUMOVAX) Branch Pneumococcal 13 2017-11-18 [...] Universit y of Conjugate, PCV13 00:00:00 [facility] dical (Prevnar 13) Branch Pneumococcal 13 2017-11-18 Completed Universit y of Conjugate, PCV13 00:00:00 [facility] dical (Prevnar 13) Branch Pneumococcal 13 2017-11-18 Completed Universit y of Conjugate, PCV13 00:00:00 [facility] dical (Prevnar 13) Branch Influenza High Dose 2017-06-27 Completed [facility] Influenza High Dose 2017-06-27 Completed [facility] Influenza High Dose 2017-06-27 Completed [facility] Influenza High Dose 2017-06-27 Completed [facility] Influenza High Dose 2017-06-27 Completed [facility] Influenza High Dose 2017-06-27 Completed [facility] 00:[facility] Influenza High Dose 2017-06-27 Completed [facility] 00:[facility] Influenza High Dose 2017-06-27 Completed [facility] 00:[facility] Influenza High Dose 2017-06-27 Completed [facility] Influenza High Dose 2017-06-27 Completed [facility] 00:[facility] Influenza High Dose 2017-06-27 Completed [facility] 00:[facility] Influenza High Dose 2017-06-27 Completed [facility] Influenza Virus 2015-06-28 Completed [facility]it y [facility] Vaccine 00:00:00 [facility] Influenza Virus 2015-06-28 Completed Universit y of Vaccine (3+ yrs) 00:00:00 [facility] Influenza Virus 2015-06-28 Completed [facility] Vaccine [facility] Influenza Virus 2015-06-28 Completed Universit y of Vaccine (3+ yrs) 00:00:00 [facility] Influenza Virus 2015-06-28 Completed [facility] Vaccine [facility] Influenza Virus 2015-06-28 Completed Universit y of Vaccine (3+ yrs) 00:00:00 [facility] Influenza Virus 2015-06-28 Completed [facility] Vaccine [facility] Influenza Virus 2015-06-28 Completed Universit y of Vaccine (3+ yrs) 00:00:00 [facility] Influenza Virus 2015-06-28 Completed [facility] Vaccine [facility] Influenza Virus 2015-06-28 Completed Universit y of Vaccine (3+ yrs) 00:00:00 [facility] Influenza Virus 2015-06-28 Completed [facility] Vaccine 00:[facility] Influenza Virus 2015-06-28 Completed Universit y of Vaccine (3+ yrs) 00:00:00 [facility] Influenza Virus 2015-06-28 Completed [facility] Vaccine 00:[facility] Influenza Virus 2015-06-28 Completed Universit y of Vaccine (3+ yrs) 00:00:00 [facility] Influenza Virus 2015-06-28 Completed [facility] Vaccine 00:[facility] Influenza Virus 2015-06-28 Completed Universit y of Vaccine (3+ yrs) 00:00:00 [facility] Influenza Virus 2015-06-28 Completed [facility] Vaccine 00:[facility] Influenza Virus 2015-06-28 Completed Universit y of Vaccine (3+ yrs) 00:00:00 [facility] Influenza Virus 2015-06-28 Completed [facility] Vaccine 00:[facility] Influenza Virus 2015-06-28 Completed Universit y of Vaccine (3+ yrs) 00:00:00 [facility] Influenza Virus 2015-06-28 Completed [facility] Vaccine 00:[facility] Influenza Virus 2015-06-28 Completed Universit y of Vaccine (3+ yrs) 00:00:00 [facility] Influenza Virus 2015-06-28 Completed [facility] Vaccine 00:[facility] Influenza Virus 2015-06-28 Completed Universit y of Vaccine (3+ yrs) 00:00:00 [facility] TDAP 2013-06-23 Completed [facility] TDAP 2013-06-23 Completed [facility] 00:[facility] TDAP 2013-06-23 Completed [facility] 00:[facility] TDAP 2013-06-23 Completed [facility] 00:00:00 [facility] TDAP 2013-06-23 Completed University [facility] 00:00:00 [facility] TDAP 2013-06-23 Completed University [facility] 00:00:00 [facility] TDAP 2013-06-23 Completed University of 00:00:00 [facility] TDAP 2013-06-23 Completed University of 00:00:00 [facility] TDAP 2013-06-23 Completed University of 00:00:00 [facility] TDAP 2013-06-23 Completed University of 00:00:00 [facility] TDAP 2013-06-23 Completed University of 00:00:00 [facility] TDAP 2013-06-23 Completed University of 00:00:00 [facility] Zoster(Zostavax)( 2012-06-03 Completed Unive rsity of ingles) 00:00:00 [facility] Zoster(Zostavax)( 2012-06-03 Completed Unive rsity of ingles) 00:00:00 [facility] Zoster(Zostavax)( 2012-06-03 Completed Unive rsity of ingles) 00:00:00 [facility] Zoster(Zostavax)( 2012-06-03 Completed Unive rsity of ingles) 00:00:00 [facility] Zoster(Zostavax)( 2012-06-03 Completed Unive rsity of ingles) 00:00:00 [facility] Zoster(Zostavax)( 2012-06-03 Completed Unive rsity of ingles) 00:00:00 [facility] Zoster(Zostavax)( 2012-06-03 Completed Unive rsity of ingles) 00:00:00 [facility] Zoster(Zostavax)( 2012-06-03 Completed Unive rsity of ingles) 00:00:00 [facility] Zoster(Zostavax)( 2012-06-03 Completed Unive rsity of ingles) 00:00:00 [facility] Zoster(Zostavax)( 2012-06-03 Completed Unive rsity of ingles) 00:00:00 [facility] Zoster(Zostavax)( 2012-06-03 Completed Unive rsity of ingles) 00:00:00 [facility] Zoster(Zostavax)( 2012-06-03 Completed [facility]ive rsity of arash) [facility] Influenza Virus 2005-06-26 Completed [facility]it [facility] Vaccine 00:00:[facility] Influenza Virus 2005-06-26 Completed [facility] Vaccine 00:[facility] Influenza Virus 2005-06-26 Completed [facility] Vaccine 00:00:[facility] Influenza Virus 2005-06-26 Completed [facility] Vaccine 00:00:[facility] Influenza Virus 2005-06-26 Completed [facility] Vaccine 00:00:[facility] Influenza Virus 2005-06-26 Completed [facility] of Vaccine 00:00:[facility] Influenza Virus 2005-06-26 Completed [facility] Vaccine 00:00:[facility] Influenza Virus 2005-06-26 Completed [facility]it [facility] of Vaccine 00:00:00 [facility] Influenza Virus 2005-06-26 Completed [facility]it [facility] of Vaccine 00:00:00 [facility] Influenza Virus 2005-06-26 Completed [facility] Vaccine 00:00:[facility] Influenza Virus 2005-06-26 Completed [facility] Vaccine 00:[facility] Influenza Virus 2005-06-26 Completed [facility] Vaccine 00:[facility] Influenza Virus 1999-07-10 Completed Universit y of Vaccine - Whole 00:00:00 [facility] Influenza Virus 1999-07-10 Completed Universit y of Vaccine - Whole 00:00:00 [facility] Influenza Virus 1999-07-10 Completed Universit y of Vaccine - Whole 00:00:00 [facility] Influenza Virus 1999-07-10 Completed Universit y of Vaccine - Whole 00:00:00 [facility] Influenza Virus 1999-07-10 Completed Universit y of Vaccine - Whole 00:00:00 [facility] Influenza Virus 1999-07-10 Completed Universit y of Vaccine - Whole 00:00:00 [facility] Influenza Virus 1999-07-10 Completed Universit y of Vaccine - Whole 00:00:00 [facility] Influenza Virus 1999-07-10 Completed Universit y of Vaccine - Whole 00:00:00 [facility] Influenza Virus 1999-07-10 Completed Universit y of Vaccine - Whole 00:00:00 [facility] Influenza Virus 1999-07-10 Completed Universit y of Vaccine - Whole 00:00:00 [facility] Influenza Virus 1999-07-10 Completed Universit y of Vaccine - Whole 00:00:00 [facility] Influenza Virus 1999-07-10 Completed Universit y of Vaccine - Whole 00:00:00 [facility] Tetanus/Diptheria 1999-04-19 Completed [facility] DTP 1999-04-19 Completed University of 00:00:00 [facility] Tetanus/Diptheria 1999-04-19 Completed [facility] 00:[facility] DTP 1999-04-19 Completed University of 00:00:00 [facility] Tetanus/Diptheria 1999-04-19 Completed [facility] 00:00:00 [facility] DTP 1999-04-19 Completed [facility] 00:[facility] Tetanus/Diptheria 1999-04-19 Completed [facility] 00:00:00 [facility] DTP 1999-04-19 Completed University of 00:00:00 [facility] Tetanus/Diptheria 1999-04-19 Completed [facility] 00:00:00 [facility] DTP 1999-04-19 Completed University of 00:00:00 [facility] Tetanus/Diptheria 1999-04-19 Completed [facility] it[facility] 00:00:00 [facility] DTP 1999-04-19 Completed University of 00:00:00 [facility] Tetanus/Diptheria 1999-04-19 Completed [facility] 00:00:00 [facility] DTP 1999-04-19 Completed University of 00:00:00 [facility] Tetanus/Diptheria 1999-04-19 Completed [facility] 00:00:00 [facility] DTP 1999-04-19 Completed University of 00:00:00 [facility] Tetanus/Diptheria 1999-04-19 Completed [facility] 00:00:00 [facility] DTP 1999-04-19 Completed University of 00:00:00 [facility] Tetanus/Diptheria 1999-04-19 Completed [facility] 00:00:00 [facility] DTP 1999-04-19 Completed University of 00:00:00 [facility] Tetanus/Diptheria 1999-04-19 Completed [facility] it[facility] 00:00:00 [facility] DTP 1999-04-19 Completed [facility] 00:[facility] Tetanus/Diptheria 1999-04-19 Completed [facility] 00:00:00 [facility] DTP 1999-04-19 Completed [facility] 00[facility] Influenza High Dose Unknown Completed [facility] Pneumococcal Unknown Completed University o f Polysaccharide, [facility] ical PPSV23 (PNEUMOVAX) Branch Zoster(Zostavax)(Sh Unknown Completed Unive rsity of ingles) [facility] Tetanus/Diptheria Unknown Completed Univers [facility] TDAP Unknown Completed [facility] Pneumococcal 13 Unknown Completed Universit y of Conjugate, PCV13 [facility] dical (Prevnar 13) Branch Influenza Virus Unknown Completed Universit y of Vaccine - Whole [facility] SARS-COV-2 COVID-19 Unknown Completed Unive rsity of PFIZER VACCINE [facility] DTP Unknown Completed [facility] Influenza Virus Unknown Completed [facility] Vaccine [facility] Influenza Virus Unknown Completed [facility] of Vaccine [facility] Influenza High Dose Unknown Completed [facility] Influenza Virus Unknown Completed [facility] (3+ yrs) [facility] D[facility] Unknown Completed [facility] Pneumococcal Unknown Completed University o f Polysaccharide, [facility] PPSV23 (PNEUMOVAX) Branch Zoster(Zostavax)(Sh Unknown Completed [facility] rsity of ingles) [facility] Tetanus/Diptheria Unknown Completed [facility] TDAP Unknown Completed [facility] Pneumococcal 13 Unknown Completed Universit y of Conjugate, PCV13 [facility] dical (Prevnar 13) Branch Influenza Virus Unknown Completed Universit y of Vaccine - Whole [facility] SARS-COV-2 COVID-19 Unknown Completed Unive rsity of PFIZER VACCINE [facility] DTP Unknown Completed [facility] Influenza Virus Unknown Completed [facility] y of Vaccine [facility] Influenza Virus Unknown Completed [facility] y of Vaccine [facility] Influenza High Dose Unknown Completed [facility] Influenza Virus Unknown Completed Universit y of Vaccine (3+ yrs) [facility] [place] Influenza High Dose Unknown Completed [facility] of [facility] Pneumococcal Unknown Completed University o f Polysaccharide, [facility] PPSV23 (PNEUMOVAX) Branch Zoster(Zostavax)(Sh Unknown Completed [facility]ive rsity of ingles) [facility] Tetanus/Diptheria Unknown Completed [facility] TDAP Unknown Completed [facility] Pneumococcal 13 Unknown Completed Universit y of Conjugate, PCV13 [facility] dicwi (Prevnar 13) [place] Influenza Virus Unknown Completed Universit y of Vaccine - Whole [facility] SARS-COV-2 COVID-19 Unknown Completed Unive rsity of PFIZER VACCINE [facility] DTP Unknown Completed [facility] Influenza Virus Unknown Completed [facility] y of Vaccine [facility] Influenza Virus Unknown Completed [facility] y of Vaccine [facility] Influenza High Dose Unknown Completed Unive rsity [facility] Influenza Virus Unknown Completed Universit y of Vaccine (3+ yrs) [facility] Influenza High Dose Unknown Completed Unive rsity [facility] Pneumococcal Unknown Completed University o f Polysaccharide, [facility] PPSV23 (PNEUMOVAX) Branch Zoster(Zostavax)(Sh Unknown Completed Unive rsity of ingdonell) [facility] Tetanus/Diptheria Unknown Completed [facility] TDAP Unknown Completed [facility] Pneumococcal 13 Unknown Completed Universit y of Conjugate, PCV13 [facility] (Prevnar 13) Branch Influenza Virus Unknown Completed Universit y of Vaccine - Whole [facility] DTP Unknown Completed [facility] Influenza Virus Unknown Completed [facility] y of Vaccine [facility] Influenza Virus Unknown Completed [facility] y of Vaccine [facility] Influenza High Dose Unknown Completed Unive rsity [facility] Influenza Virus Unknown Completed Universit y of Vaccine (3+ yrs) [facility] Vital Signs Vital Name Observation Time Observation Value Comments Source Systolic blood 2021-03-07 13:45:00 132 mm[Hg] [facility] Diastolic blood 2021-03-07 13:45:00 73 mm[Hg] [facility] pressure [facility] Heart rate 2021-03-07 13:45:00 54 [facility] Body temperature 2021-03-07 13:44:00 35.67 Suze Univ ersity [facility] Body height 2021-03-07 13:44:00 170.2 cm Universi ty [facility] Body weight 2021-03-07 13:44:00 81.693 kg [facility] [place] [facility] BMI 2021-03-07 13:44:00 28.21 kg/m2 [facility] Oxygen saturation in 2021-03-07 13:44:00 97 /min University of Arterial blood by [place] [facility] Pulse oximetry Branch Systolic blood 2020-12-05 18:53:00 120 mm[Hg] Univer sity of pressure [facility] Diastolic blood 2020-12-05 18:53:00 72 mm[Hg] Unive rsity of pressure [facility] Heart rate 2020-12-05 18:53:00 67 /min [facility] Body temperature 2020-12-05 18:51:00 36.06 Suze Univ ers[facility] Body height 2020-12-05 18:51:00 170.2 cm [facility] Body weight 2020-12-05 18:51:00 80.786 kg [facility] BMI 2020-12-05 18:51:00 27.89 kg/m2 [facility] Oxygen saturation in 2020-12-05 18:51:00 96 /min University of Arterial blood by [facility] Pulse oximetry Branch Systolic blood 2020-10-06 17:23:00 131 mm[Hg] Univer sity of pressure [facility] Diastolic blood 2020-10-06 17:23:00 72 mm[Hg] Unive rsity of pressure [facility] Heart rate 2020-10-06 17:23:00 62 /min [facility] Respiratory rate 2020-10-06 17:13:00 19 /min Univ ersity of [facility] Body height 2020-10-06 17:13:00 170.2 cm [facility] Body weight 2020-10-06 17:13:00 82.872 kg [facility] BMI 2020-10-06 17:13:00 28.61 kg/m2 [facility] Oxygen saturation in 2020-10-06 17:13:00 95 /min University of Arterial blood by [facility] arely Pulse oximetry Branch Systolic blood 2020-02-29 20:25:00 178 mm[Hg] Univer sity of pressure [facility] Diastolic blood 2020-02-29 20:25:00 64 mm[Hg] Unive rsity of pressure [facility] Heart rate 2020-02-29 20:25:00 71 /min [facility] Body temperature 2020-02-29 20:25:00 36.83 Suze Univ ersity of [facility] Respiratory rate 2020-02-29 20:25:00 18 /min Univ ersity of [facility] Body weight 2020-02-29 20:25:00 81.375 kg [facility] BMI 2020-02-29 20:25:00 24.33 kg/m2 [facility] Systolic blood 2020-02-17 12:41:00 181 mm[Hg] Univer sity of pressure [facility] Diastolic blood 2020-02-17 12:41:00 68 mm[Hg] Unive rsity of pressure [facility] Heart rate 2020-02-17 12:41:00 49 /min [facility] Body temperature 2020-02-17 12:41:00 36.17 Suze Univ ers[facility] Respiratory rate 2020-02-17 12:41:00 16 /min Univ ersity [facility] Oxygen saturation in 2020-02-17 12:41:00 94 /min [facility] Arterial blood by [facility] Pulse oximetry [place] Body height 2020-02-11 20:19:32 182.9 cm [facility] Body weight 2020-02-11 20:18:27 81.647 kg [facility] BMI 2020-02-11 20:18:27 24.41 kg/m2 [facility] Systolic blood 2020-02-11 19:00:00 92 mm[Hg] Univer sity of pressure [facility] Diastolic blood 2020-02-11 19:00:00 55 mm[Hg] Unive rsity of pressure [facility] Heart rate 2020-02-11 19:00:00 78 /min [facility] Body temperature 2020-02-11 19:00:00 36.17 Suze Univ ers[facility] of [facility] Respiratory rate 2020-02-11 19:00:00 19 /min Univ ers[facility] Oxygen saturation in 2020-02-11 19:00:00 95 /min [facility] Arterial blood by [facility] Pulse oximetry Branch Body weight 2020-02-11 16:55:35 81.647 kg [facility] BMI 2020-02-11 16:55:35 28.19 kg/m2 [facility] Body height 2020-02-11 06:55:00 170.2 cm [facility] Procedures Procedure Date / Time Performing Clinician Source Performed [id number] 2023-04-17 00:00:00 KYRPO [facility] [id number] 2023-04-17 00:00:00 KYRPO [facility] [id number] 2023-03-04 00:00:00 CHAAB.01 [facility] [id number] 2023-03-04 00:00:00 CHAAB.01 [facility] [id number] 2023-03-04 00:00:00 CHAAB.[address] [facility] [id number] 2023-03-04 00:00:00 CHAAB.01 [facility] [id number] 2023-03-04 00:00:00 CHAAB.01 [facility] [id number] 2023-03-04 00:00:00 CHAAB.01 [facility] [id number] 2023-03-04 00:00:00 CHAAB.01 [facility] [id number] 2023-03-04 00:00:00 CHAAB.01 [facility] [id number] 2023-03-04 00:00:00 CHAAB.01 [facility] [id number] 2023-03-04 00:00:00 CHAAB.01 [facility] MT ELECTROCARDIOGRAM, 2020-10-06 17:23:45 [facility] [place] [facility] [place] ASSIGNMENT OF BENEFITS 2020-02-29 20:10:25 Doctor Unassigned, [facility] [place] [facility] POCT GLUCOSE (AUTOMATED) 2020-02-17 12:38:00 Reddy Luque versity [facility] BASIC METABOLIC PANEL (NA, 2020-02-17 09:08:00 Sathya Cardoso [facility] [place] K, CL, CO2, GLUCOSE, BUN, Medica l Branch CREATININE, CA) CBC WITH DIFFERENTIAL 2020-02-17 09:08:00 Sathya Cardoso [facility] POCT GLUCOSE (AUTOMATED) 2020-02-17 09:03:00 [facility] 2020-02-17 08:38:31 [facility] Mariya, [facility] POCT GLUCOSE (AUTOMATED) 2020-02-17 05:33:00 Person, Reddy Uni versity [facility] POCT GLUCOSE (AUTOMATED) 2020-02-17 01:55:00 Person, Reddy [facility] POCT GLUCOSE (AUTOMATED) 2020-02-17 01:04:00 Person, Reddy Uni versity [facility] POCT GLUCOSE (AUTOMATED) 2020-02-16 21:06:00 Person, Reddy Uni versity [facility] POCT GLUCOSE (AUTOMATED) 2020-02-16 16:40:00 Person, Reddy Uni versity [facility] TROPONIN I 2020-02-16 12:17[facility]00 [facility] (NA, 2020-02-16 10:29:00 Sathya Cardoso [facility] [place] K, CL, CO2, GLUCOSE, BUN, Medica l Branch CREATININE, CA) CBC WITH DIFFERENTIAL 2020-02-16 10:29:00 Sathya Cardoso [facility] GLYCOSYLATED HEMOGLOBIN 2020-02-16 10:29:00 Jose [facility] (A1C) Mariya, [facility] XR CHEST 1 VW 2020-02-16 09:56:25 Charline Zavala [facility] POCT GLUCOSE (AUTOMATED) 2020-02-16 05:03:00 Person, Reddy [facility] POCT GLUCOSE (AUTOMATED) 2020-02-16 02:07:00 Person, Reddy [facility] POCT GLUCOSE (AUTOMATED) 2020-02-15 22:35:00 Person, Reddy [facility]) 2020-02-15 13:12:00 Person, Reddy [facility] US RETROPERITONEAL 2020-02-15 09:33:19 Benoit Laboy [facility] COMPLETE [facility] BASIC METABOLIC PANEL (NA, 2020-02-15 09:18:00 Sathya Cardoso [facility] [place] K, CL, CO2, GLUCOSE, BUN, Medica l Branch CREATININE, CA) CBC WITH DIFFERENTIAL 2020-02-15 09:18:00 Sathya Cardoso [facility] XR CHEST 1 VW 2020-02-15 09:15:00 [facility] Mariya[facility] SODIUM URINE 2020-02-15 05:02:[address] [facility] POCT GLUCOSE (AUTOMATED) 2020-02-15 01:56:00 Person, Reddy Kandace [facility] URINALYSIS 2020-02-15 00:50:00 [facility] Mariya[facility] POCT GLUCOSE (AUTOMATED) 2020-02-14 23:01:00 Person, Reddy Uni [facility] POCT GLUCOSE (AUTOMATED) 2020-02-14 22:20:00 Person, Reddy Uni [facility] XR CHEST 1 VW 2020-02-14 21:26:14 [facility]) 2020-02-14 12:58:00 Person, Reddy Uni [facility] BASIC METABOLIC PANEL (NA, 2020-02-14 08:59:00 Sathya Cardoso [facility] [place] K, CL, CO2, GLUCOSE, BUN, Medica l Branch CREATININE, CA) CBC WITH DIFFERENTIAL 2020-02-14 08:59:00 Sathya Cardoso [facility] XR CHEST 1 VW 2020-02-14 08:01:53 [facility] Mariya[facility] CREATININE, URINE RANDOM 2020-02-14 04:54:00 Elder Dobson, [facility] POTASSIUM, URINE RANDOM 2020-02-14 04:54:00 Jose Brody [facility] Mariya, [facility] SODIUM, URINE RANDOM 2020-02-14 04:54:00 Jose bean [facility] Mariya, [facility] CHLORIDE, URINE RANDOM 2020-02-14 04:54:00 Jose Brody [facility] Mariya, [facility] POCT GLUCOSE (AUTOMATED) 2020-02-14 01:53:00 Person, Reddy Uni [facility] BASIC METABOLIC PANEL (NA, 2020-02-14 00:32:00 Jose Brody [facility] K, CL, CO2, GLUCOSE, BUN, Mariya, [facility] CREATININE, CA) POCT GLUCOSE (AUTOMATED) 2020-02-13 22:31:00 Person, Reddy Uni [facility] POCT GLUCOSE (AUTOMATED) 2020-02-13 17:48:00 Person, Reddy [facility] BASIC METABOLIC PANEL (NA, 2020-02-13 15:29:00 Sathya Cardoso [facility] K, CL, CO2, GLUCOSE, BUN, Medica l Branch CREATININE, CA) CBC WITH DIFFERENTIAL 2020-02-13 15:29:00 Sathya Cardoso [facility] POCT GLUCOSE (AUTOMATED) 2020-02-13 14:46:00 Person, Reddy [facility] XR CHEST 1 VW 2020-02-13 08:43:00 Jose [facility] Mariya, [facility] POCT GLUCOSE (AUTOMATED) 2020-02-13 02:39:00 Person, Reddy Uni [facility] POCT GLUCOSE (AUTOMATED) 2020-02-12 18:52:00 Person, Reddy Uni [facility] POCT GLUCOSE (AUTOMATED) 2020-02-12 13:35:00 Person, Reddy Uni [facility] PHOSPHORUS 2020-02-12 09:55:00 Sathya Cardoso [facility] BASIC METABOLIC PANEL (NA, 2020-02-12 09:55:00 Sathya Cardoso U [facility] K, CL, CO2, GLUCOSE, BUN, Medica l Branch CREATININE, CA) CBC WITH DIFFERENTIAL 2020-02-12 09:55:00 Sathya Cardoso [facility] XR CHEST 1 VW 2020-02-12 08:51:55 Jose [facility] Mariya, [facility] POCT GLUCOSE (AUTOMATED) 2020-02-12 03:54:00 Person, Reddy [facility] POCT GLUCOSE (AUTOMATED) 2020-02-12 02:32:00 Person, Reddy [facility] CRITICAL CARE 2020-02-11 21:34:22 Cheryl Hughes [facility] XR CHEST 1 VW 2020-02-11 20:55:40 Sathya Cardoso [facility] XR CHEST 1 2020-02-11 18:24:29 Cheryl Hughes [facility] CT TRAUMA THORAX W 2020-02-11 17:40:51 Cheryl Hughes [facility] CONTRAST Medical Branch CT TRAUMA ABDOMEN PELVIS W 2020-02-11 17:40:51 Cheryl Hughes [facility] CONTRAST Medical Branch CT TRAUMA HEAD WO CONTRAST 2020-02-11 17:39:21 [facility] CERVICAL SPINE 2020-02-11 17:39:21 Cheryl Hughes [facility] CONTRAST Medical Branch CT TRAUMA THORACIC SPINE 2020-02-11 17:39:21 Cheryl Hughes [facility] CONTRAST Medical Branch CT TRAUMA LUMBAR SPINE WO 2020-02-11 17:39:[address] Medical Branch XR CHEST 1 VW 2020-02-11 17:14:51 Cheryl Hughes [facility] COVID-19 (ID NOW RAPID 2020-02-11 17:08:00 Cheryl Hughes [facility] TESTING) Medical Branch LIPASE 2020-02-11 17:01:00 Cheryl Hughes [facility] TROPONIN I 2020-02-11 17:01:00 Cheryl Hughes [facility] HEPATIC FUNCTION PANEL 2020-02-11 17:01:[address] [facility] ([id number]) (ALB,T.PRO,BILI Medical Branch T,BU/BC,ALT,AST,ALK PHOS) BASIC METABOLIC PANEL (NA, 2020-02-11 17:01:00 Cheryl Hughes [facility] K, CL, CO2, GLUCOSE, BUN, Medica l Branch CREATININE, CA) CBC WITH DIFFERENTIAL 2020-02-11 17:01:[address] [facility] / INR 2020-02-11 17:01:[address] [facility] ACTIVATED PARTIAL THRMPLAS 2020-02-11 17:01:00 Cheryl Hughes [facility] EKG-12 LEAD 2020-02-11 16:57:27 [facility] Encounters Start End Encounter Admission Attending Care Care Encounter Source Date/Time Date/Time Type Type Clinicians Facility Department ID 2023-04-08 Inpatient [facility] [id number] [facility] 10:53:00 97 [facility] 2023-04-08 2023-04-19 Inpatient SHAGGY Magaña[facility] [id number] [facility] 16:50:00 16:02:00 Rojelio 97 [facility] 2023-03-19 2023-03-19 Outpatient Dul[address] Harp [facility] [id number] [facility] 14:09:00 14:09:00 70 [facility] 2023-03-03 2023-03-13 Inpatient RADHA Villeda[facility] INTE [id number] [facility] 18:32:00 16:01:00 Samia 87 [facility] 2021-06-07 2021-06-07 Outpatient Karuna GONZALES [facility] [id number] Univers 08:30:00 08:30:00 [facility] 2021-06-04 2021-06-04 Outpatient Karuna GONZALES [facility] [id number] Univers 09:00:00 09:00:00 [facility] 2021-03-16 2021-03-16 [facility] [id number] Univers 00:00:00 00:00:00 Ayse MULTISPEC 350.1.13.10 [place] [id number] [facility] AND [address] [facility] 2021-03-16 2021-03-16 Patient Christian [facility] [id number] Univers 00:00:00 00:00:00 Secure Msg Ayse MULTISPEC 350.1.13.10 [place] [id number] [facility] AND [address] [facility] 2021-03-07 2021-03-07 Dispensing Operator [facility] 1.2.840.114 [id number] Univers 09:13:33 09:28:33 Visit Ayse Gonzales 350.1.13.1 0 [place] [id number] [facility] AND [address] [facility] 2021-03-07 2021-03-07 Office Christian [facility] [id number] Univers 08:27:54 09:14:25 Visit Ayse MULTISPEC 350.1.13.10 ity of [place] 4.2.7.2.686 [facility] OLAR [id number] [address] [facility] 2021-03-07 2021-03-07 Outpatient R CHRISTIAN [facility] [id number] Univers 09:00:00 09:00:00 AYSE ity [facility] 2021-03-02 2021-03-02 Outpatient R CHRISTIAN [facility] [id number] Univers 08:00:00 08:00:00 AYSE ity [facility] 2021-02-28 2021-02-28 Telephone Christian [facility] 1.2.840.114 [id number] Univers 00:00:00 00:00:00 Ayse MULTISPEC 350.1.13.10 [place] [id number] [address] [facility] 2020-12-252020-12-25 [facility] [id number] Univers 00:00:00 00:00:00 Secure Msg Ayse MULTISPEC 350.1.13.10 [place] [id number] [address] [facility] 2020-12-20 2020-12-20 Patient Christian [facility] [id number] Univers 00:00:00 00:00:00 Secure Msg Ayse MULTISPEC 350.1.13.10 [place] [id number] [address] [facility] 2020-12-19 2020-12-19 [facility]ill [facility] [id number] Univers 00:00:00 00:00:00 Ayse MULTISPEC 350.1.13.10 ity of [place] 4.2.7.2.686 [facility] [id number] [address] [facility] 2020-12-14 2020-12-14 [facility] 1.2.840.114 [id number] Univers 07:53:25 23:59:00 Encounter Ryan Garza 350.1.13.10 ity of [place] 4.2.7.2.686 [facility] [id number] [facility] [address] 2020-12-14 2020-12-14 [facility] 1.2.840.114 [id number] Univers 07:53:14 23:59:00 Encounter Sendignacio Garza 350.1.13.10 ity of [place] 4.2.7.2.686 [facility] [place] [id number] [facility] [address] 2020-12-14 2020-12-14 [facility] 1.2.840.114 [id number] Univers 07:53:04 23:59:00 Encounter Sendignacio Garza 350.1.13.10 ity of [place] 4.2.7.2.686 [facility] [id number] [facility] [address] 2020-12-14 2020-12-14 Hospital [facility] 1.2.840.114 [id number] Univers 07:52:23 07:52:23 Encounter Ryan Garza 350.1.13.10 ity of [place] 4.2.7.2.686 [facility] [id number] [facility] [address] 2020-12-14 2020-12-14 Outpatient SAMMY [facility] [id number] Univers 00:00:00 00:00:00 SENDIL itarnold [facility] 2020-12-05 2020-12-05 Office [facility] [id number] Univers 13:35:35 14:36:37 Visit Ayse TAYLOR 350.1.13.10 ity of [place] 4.2.7.2.686 [facility] [id number] [address] [facility] 2020-12-05 2020-12-05 Outpatient R CHRISTIAN [facility] [id number] Univers 14:00:00 14:00:00 AYSE larry [facility] 2020-12-01 2020-12-01 Dispensing Operator Tomer, Yousuf Lab Main [facility] 1.2.8 40.114 [id number] Univers 08:24:35 08:39:35 Visit Ayse Gonzales 350.1.13.10 ity [facility] 4.2.7.2.686 [facility] Profess [id number] Id dical nal 353 [facility] 2020-12-01 2020-12-01 Outpatient R CHRISTIAN [facility] [id number] Univers 08:30:00 08:30:00 AYSE larry [facility] 2020-11-28 2020-11-28 Telephone Christian [facility] 1.2.840.114 [id number] Univers 00:00:00 00:00:00 Ayse TAYLOR 350.1.13.10 ity of [place] 4.2.7.2.686 [facility] [id number] [address] [facility] 2020-11-13 2020-11-13 Outpatient R CHRISTIANSON, [facility] [id number] Univers 16:00:00 16:00:00 SENDIL ity [facility] 2020-11-06 2020-11-06 Patient Jerad [facility] 1.2.840.114 [id number] Univers 00:00:00 00:00:00 Outreach Neal PRIMARY 350.1.13.10 i [facility] [place] [id number] Id dical [address] 2020-10-06 2020-10-06 Office Sammy [facility] 1.2.840.114 [id number] Univers 10:53:30 12:21:03 Visit Ryan Garza 350.1.13.10 [place] [id number] Id dical nal 059 [facility] 2020-10-06 2020-10-06 Outpatient Karuna CHRISTIANSON [facility] [id number] Univers 11:00:00 11:00:00 SENDIL ity [facility] 2020-09-17 2020-09-17 Refill Doctor [facility] 1.2.840.114 [id number] Univers 00:00:00 00:00:00 Unassigned, MULTISPEC 350.1.13.10 ity of [place] [facility] 4.2.7.2.686 [facility] OLAR [id number] [address] [facility] 2020-09-05 2020-09-05 Outpatient Karuna GONZALES [facility] [id number] Univers 11:00:00 11:00:00 AYSE ity [facility] 2020-09-05 2020-09-05 Telemedici [facility] 1.2.840.114 [id number] Univers 07:24:28 07:54:28 ne Visit Ayse MULTISPEC 350.1.13.10 ity of [place] 4.2.7.2.686 [facility] OLAR [id number] [address] [facility] 2020-09-05 2020-09-05 Patient Doctor [facility] 1.2.840.114 [id number] Univers 00:00:00 00:00:00 Secure Msg Unassigned, MULTISPEC 350.1.13.10 [place] [id number] [address] [facility] 2020-08-30 2020-08-30 Dispensing Operator Tomer, Adc Lab Main [facility] 1.2.8 40.114 [id number] Univers 09:16:09 09:31:09 Visit Ayse Gonzales 350.1.13.10 ity of [place] 4.2.7.2.686 [facility] Professio [id number] Id dical [address] 2020-08-30 2020-08-30 Outpatient R CHRISTIAN [facility] [id number] Univers 09:15:00 09:15:00 AYSE itarnold [facility] 2020-08-29 2020-08-29 Telephone [facility] 1.2.840.114 [id number] Univers 00:00:00 00:00:00 [facility] 350.1.13.10 ity of [place] 4.2.7.2.686 [facility] OLAR [id number] [address] [facility] 2020-08-14 2020-08-14 [facility] 1.2.383.324 [id number] Univers 00:00:00 00:00:00 [facility] 350.1.13.10 ity of [place] 4.2.7.2.686 [facility] OLAR [id number] [address] [facility] 2020-04-14 2020-04-14 Telephone [facility] 1.2.840.114 [id number] Univers 00:00:00 00:00:00 [facility] 350.1.13.10 ity of [place] 4.2.7.2.686 [facility] CENTER [id number] [address] [facility] 2020-03-23 2020-03-23 Outpatient R CHRISTIAN [facility] [id number] Univers 13:00:00 13:00:00 AYSE ity [facility] 2020-03-23 2020-03-23 Telemedici [facility] 1.2.840.114 [id number] Univers 07:48:19 08:48:19 ne [facility] 350.1.13.10 [place] [id number] [address] DIABETES [facility] 2020-03-21 2020-03-21 [facility] [id number] Univers 13:00:00 13:00:00 AYSE ity [facility] 2020-03-20 2020-03-20 Dispensing Operator Tomer, Adc Lab Main [facility] 1.2.8 40.114 [id number] [facility] 08:13:42 08:28:42 Visit Ayse Gonzales 350.1.13.10 [place] [id number] Id dical nal 353 [facility] 2020-03-20 2020-03-20 [facility] [id number] [facility] 07:30:00 07:30:00 AYSE ity [facility] 2020-03-16 2020-03-16 Telephone [facility] 1.2.840.114 [id number] Univers 00:00:00 00:00:00 Ayseiron [facility] 350.1.13.10 [place] [id number] [address] DIABETES [facility] 2020-03-14 2020-03-14 Telephone [facility] 1.2.840.114 [id number] Univers 00:00:00 00:00:00 Ayse [facility] 350.1.13.10 [place] [id number] [address] DIABETES [facility] 2020-02-29 2020-02-29 Office [facility] 1.2.545.004 [id number] Univers 15:10:36 15:43:10 Visit Perri Greg 350.1.13.10 i ty [place] [id number] Id dical nal 377 [facility] 2020-02-29 2020-02-29 [facility] [id number] Univers 15:15:00 15:15:00 PERRI itarnold [facility] 2020-02-29 2020-02-29 Orders Doctor DULCE 1.2.840.114 [id number] Univers 00:00:00 00:00:00 Only Unassigned, ROXANA 350.1.13.10 ity of [place] [facility] 4.2.7.2.686 [place] as [id number] [facility] [address] 2020-02-18 2020-02-18 Transition AkashAquilino 1.2.840.114 [id number] Univers 00:00:00 00:00:00 of Care Tony Leblanc 350.1.13.10 ity of [place] [id number] [facility] [address] 2020-02-11 2020-02-17 Hospital Nory Luque 1.2.840.114 [id number] Univers 15:17:21 11:50:00 Encounter Reddy Oropeza 350.1.13.10 ity of [facility] 4.2.7.2.686 [place] as [id number] [facility] [address] 2020-02-11 2020-02-11 Emergency [facility] E[facility] [id number] Univers 11:54:46 14:08:00 CHERYL kendy [facility] 2020-02-11 2020-02-11 Emergency [facility] [id number] [id number] Univers 11:54:46 14:08:00 Cheryl Garza 350.1.13.10 i ty of [place] [id number] [facility] [address] 2020-02-11 2020-02-11 Emergency X [facility] ERT [id number] Univers 11:54:46 11:54:46 CHERYL larry [facility] Results Test Description Test Time Test Comments Results Result Comments Source CHEMISTRY MISCELLANEOUS TEST 2023-05-03 09:49:00 Test Item Value Reference Range Interpretation Comme nts CHEMISTRY TEST (test code = TESTC) CHEMISTRY TEST RESULT (test code = NEOTYPE ANALYSIS: MDS/CMML Profile Results RESULTC) Summary 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* Pertinent Negatives: NO a lterations detected in the following genes : FLT3, IDH1, IDH2, NPM1 InterpretationD NMT3A, located on 2p23, encodes for a p rotein involved inepigenetic regulation crit ical for the silencing of tumorsuppressor genes associated with hematopoietic n eoplasms.DNMT3A mutations are found in 31% of acute myeloidleukemia (PMID: 25152108), 13% of myelodysplastic syndrome(PMID: 24862645), 13% of refractory anemia with rin gsideroblasts associated with marked thromboc ytosis (PMID:94458708), 8% of blastic plasmac ytoid dendritic cellneoplasm (PMID: 84276589 ), 6% of primary myelofibrosis ( PMID: 27952781), 6% of essential throm bocythemia, 2% ofpolycythemia vera (PMID: 292 27224), and 4% of chronic myelomonocytic leukemia (PMID: 50986842). DNMT3A mutation sare associated with an unfavorable pro gnosis in myelodysplastic syndrome when S F3B1 is not mutated, and also unfavorable out comes and shorter survival after hematopoi etic stem cell transplantation (PMID: 52823643). DNMT3A mutations are a ssociated with an unfavorable prognosis in ac lizzie myeloid leukemia with FLT3-ITD mutati onand normal karyotype or intermediate-ri sk cytogenetic abnormalities, but improved ou tcome in patients treated with high-dose induction chemotherapy compared withst andard-dose induction chemotherapy (P MID: 05595091). Somatic mutations in le ukemiaassociated genes (particularly A SXL1, DNMT3A, or TET2) can also be found i n about 10% of elderly individuals wit hout known hematologic malignancy, a c ondition known as clonal hematopoiesis o f indeterminate potential (CHIP). Most of these individuals, however, lack cytopenias and have only a single mutation with l ow allele frequency. The presence of a s omatic mutation is associated with increases in the risk ofdeveloping a hematologic mal ignancy and in all-causemortal ity, with the risk of developing a he matologic malignancy increased by a factor of nearly 50 in individuals wit h allele frequency of 10% or more (PMID: 254 47734). Somatic mutations in leukemia-associ ated genes are also commonly found in patien tswith unexplained cytopenias who do not meet diagnosticcriteria for myelodysplastic syndrome, a condition known asclonal cytope nias of undetermined significance (C CUS) (PMID:29033148 and PMID: 55917076). Bob Ho M.D., Pathologi st SEE SCANNED COPY FOR FULL REPORT. FLUORESCENCE INSITU [id number] 09:49:00 Test Item Value Reference Range Interpretation Comments FLUORESCENCE INSITU FISH Kia lysis - MDS HYBRID (test code = Extended Results: Normal FISH) Interpretation: +19 Not Detected Chromo some 8 Not Detected Chromo some 20 Not Detected 5q-/-5 /+5 tricolor Not De tected 7q-/-7 tri Not Detected p53 (17p13.1)/ NF1 (17q11) Not Detected ET V6 (12p13) Not DetectedKMT 2A (MLL) (11q23) Not Det ected RPN1/MECOM (3q) Not Detected There is no evidence of abn ormalities. NOTE: The prese nce of other abnormali ties, not detectable byth is FISH probe set, michelle ot be ruled out. RECOMMENDA TION: These results should be interpreted inc onjunction with clinical a nd other laboratory find ings. Electronic Sign Murray Beyer M.D. , Hematopathologi st See scanned copy fo r full report. CHROMOSOME CAROLINE BONE [id number] 09:49:00 Test Item Value Reference Range Interpretation Comments CHROMOSOME CAROLINE Cytogenetic sOncology BONE MARROW (test Chromosome Analysis Specimen code = CHROMBM) Type: Bone M arrowBody Site: Left Iliac Hans t Karyotype: 45,X,-Y[3]/46,X Y[10] Interpretation: ABNORMAL MALE KARYOTYPE - SEE COMMENT Three cells analyzed show loss of the Y chromosom e as thesole anomaly. The re maining ten cells show a no rmal malekaryotype. Loss of the Y chromosome is a n age-related change in older males, and is not considered clinically significant. Du e to poor mitotic index, only thirteen metaphase cells areavailable for analysis. T his study does not exclude the presence of an abnormal clone within standard analys is parameters. Comments:Standa rd cytogenetic analysis may no t detect subtlesubmicros copic rearrangements and may not include metapha sesfrom abnormal cell p opulations with low mitoti c rates or present in low levels. Analysis Code: [id number], QC ([id number]) Jorge Luis t Detail:Metaphas es Counted: 13Metaphases An alyzed: 13Metaphases Ka ryotyped: 4Culture Type: 24EB, 48EBBanding Pennie hnique: GTGBanding Reso lution: 350 Electronic SignatureChrist tutu Cheema M.D., Pathologi st - [facility] . LEUK/LYMPHOMA [id number] 09:49:00 Test Item Value Reference Range Interpretation Comments LEUK/LYMPHOMA Flow Cytometry Analysis PANEL (test code = Specimen Type: Bone MarrowBody LEULYM) Site: Left Peterson c Crest Diagnosis:1) FI NDINGS SUGGESTIVE OF I MMATURE MONOCYTES2) ROBLES SMA CELL STUDIES ORDERED ADDENDUM ([id number]):- N O EVIDENCE FOR PLASMA CELL JESUS PLASM DETECTED Comments:Phenot ype: ?dim CD7 (subset), dim C D11c, CD13, CD33, CD34,CD38 , CD64, CD117, HLA-DR; negativ e for CD10 and CD19 Monocytes demonstrate heterogeneous e xpression of WL59xzotjrrjzb of monocyte immaturity. 0.9 % myeloid blasts aredetec boris with equivocal expre ssion of CD7 noted in a subs et of blasts. These findings may sometimes be associated w ith a myeloid neoplasm. Eosin ophils are 6%. Cytogenetic vane yotyping, FISH and next gen se quencing studies are alr blessing in progress as req uested. No evidence for ac lizzie leukemia, increased CD34/ CX115ebedfjrl blasts, lymphop roliferative disorder is det ected. Clinical and morphologic correlation is recommended for fullinterpretat ion. ADDENDUM(13AUG2 [id number]): Cytoplasmic lig ht chain and CD138 studiesde monstrate polytypic light chain expression in p lasmacells. No evidence for pl asma cell neoplasm is det ected at this time. Flow Diff erential (%) and Population Analysis: Lymphocytes: 2. 4%T cells in this region are 90% (2% of total events). CD4 toCD8 ratio is 2.7. NK cell s are 6% and large granular lymphocytes are 5% (less than 1 %) each. B cells are 2% (l ess than 0.1%) and show lambda predominance but polytypic l ight chain expression. Mon ocytes: 3.4%Heterogeneo us expression of CD14 is note d; negative forCD56. Granul ocytes: 89.6%Full spect rum maturation expression kendra blanca is noted.Eosinophi ls are 6% of total events. C D45 Dim: 3.6%0.9% are CD 34 positive myeloid blasts with equivocal dimexpression o f CD7 in a subset of event s. Markers Performed:CD2, CD3, CD4, CD5, CD7, CD8, CD10, CD11c, CD13, CD14, CD16,CD19 , CD20, CD23, CD33, CD34, CD3 8, CD45, CD56, CD64, CD117,CD1 38, cKappa, cLambda, HLA-DR , [place], Lambda (27 Markers ) Immunophenotypi ng:Analysis Code: 3-3903 AD DENDED: Diagnosis adden ded for plasma cell studies on ly Electronic Elvin Pryor M.D., Pathologist BONE [id number] 13:47:00 Test Item Value Reference Range Interpretation Comments BONE MARROW (test code = BR) R UN DATE: 04/30/23 [place] [facility] PAGE 1 RUN TIME: 1419 Specimen Inquiry RUN USER: INTERFACE P ATIENT: TEVIN VAUGHAN LOC: ANAMIKA Shay #: [id number] AGE/SX: 73/M ROOM: [facility] RE04/08/23REG DR: Rojelio Magaña MD : 51 BED: 1 DIS: 04/19/23 STATUS: DIS IN TLOC: SPEC #: [id number] RECD: 04/17/23 STATUS: GILBERT REQ #: [id number] BHAVANI: 04/17/23- [facility] DR: Pablo Kumar MD ENTERED: 04/17/23 SP TYPE: BM OTHR DR: Self Referred Anibal Haynes MD, Majd Byrne, John G MD Chaugle, Abdul Hannan MD Gibberman, Jeffrey B MD Gray,Bryson Gamboa,Reyna Chahal MD DPM Dakota Arvizu MD,David Mcclelland,Atif Paz,Glendy Ceron MDORDERED: 15007, 89490/2, SPEC STAIN GR2/4, 00743, IHC ADD 01018/6, 66033, 02228, ANATOMIC SPEC COPIES TO: Self Referred Anibal aHynes MD [address] [place] [address] Sharmila Alan [address] [place] [address] [place] [address] Dulce Mcguire MD [address] [place] [address] [address] [place] [address] Luci Villeda MD [address] [place] [address]. [address] [place] [address] Davi Hilton MD [address] [facility] [address] [place] [address] CONTINUED ON NEXT PAGE R UN DATE: 04/30/23 [place] [facility] PAGE 2 RUN TIME: 1419 Specimen Inquiry RUN USER: INTERFACE S PEC #: [id number] PATIENT: TEVIN VAUGHAN #[id number] (Continued) COPIES TO: (Continued) [place] [address] [facility] [address] [place] [address] Elvie Gamboa MD [address] [place] [address]. [place] [address] Reyna Washington DP [address] [place] [address] Pablo Kumar MD [address] [place] [address] Dakota Arvizu MD [address] [place] [address] David Butler MD [address] [place] [address] Atif Ahn MD [address] [place] [address] [address] [place], [place] [address] Glendy Paz MD [address] [place] [address] PROCEDURES: 73719 (04/17/23) 18090 (04/17/23) SPEC STAIN GR2 (04/17/23) 64482 (04/21/23) IHC ADD 93773 (04/21/23) 72984 (04/21/23) 31789 (04/21/23) CONTINUED ON NEXT PAGE R UN DATE: 04/30/23 [place] - LAB PAGE 3 RUN TIME: 1419 Specimen Inquiry RUN USER: INTERFACE S PEC #: [id number] PATIENT: TEVIN VAUGHAN #[id number] (Continued) TISSUES: A. BONE MARROW BIOPSY/ BONE MARROW PARTICLE CLOT - LEFT ILIAC CREST ADDENDUM FINDINGS Addendum #3 Entered: 04/30/23-0318 This addenum is issued to report the results of ancillary studies performed and interpretedat [facility] (see below). 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 DNMT3A mutations are found in 31% of acute myeloidleukemia (PMID: 67651130), 13% of myelodysplastic syndrome (PMID: 87047642), 13% ofrefractory anemia with ring sideroblasts associated with marked thrombocytosis (PMID:03075021), 8% of blastic plasmacytoid dendritic cell neoplasm (PMID: 73240108), 6% ofprimary myelofibrosis (PMID: 59900131), 6% of essential thrombocythemia, 2% of polycythemiavera (PMID: 94221718), and 4% of chronic myelomonocytic leukemia (PMID: 35333636). RHHL3Qbplvusgdd are associated with an unfavorable prognosis in myelodysplastic syndrome lzhcNQ0M8 is not mutated, and also unfavorable outcomes and shorter survival afterhematopoietic stem cell transplantation (PMID: 66128081). DNMT3A mutations are associatedwith an unfavorable prognosis in acute myeloid leukemia with FLT3-ITD mutation and normalkaryotype or intermediate-risk cytogenetic abnormalities, but improved outcome in patientstreated with high-dose induction chemotherapy compared with standard-dose inductionchemotherapy (PMID: 10318715). Somatic mutations in leukemia associated genes (particularlyASXL1, DNMT3A, or TET2) can also be found in about 10% of elderly individuals withoutknown hematologic malignancy, a condition known as clonal hematopoiesis of indeterminatepotential (CHIP). Most of these individuals, however, lack cytopenias and have only asingle mutation with low allele frequency. The presence of a somatic mutation is associatedwith increases in the risk of developing a hematologic malignancy and in all-causemortality, with the risk of developing a hematologic malignancy increased by a factor ofnearly 50 in individuals with allele frequency of 10% or more (PMID: 02369230). Somaticmutations in leukemia-associated genes are also commonly found in patients with unexplainedcytopenias who do not meet diagnostic criteria for myelodysplastic syndrome, a conditionknown as clonal cytopenias of undetermined significance (CCUS) (PMID: 64508320 and PMID:66386251). PLEASE SEE ORIGINAL REFERENCE LAB REPORT FOR DETAILS Addendum Signed SIGNATURE ON FILE Shun Vasquez 04/30/23 1418 Addendum #2 Entered: 04/25/23-1155 This addenum is issued to report the results of ancillary studies performed and interpretedat [facility] (see below). 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 The remaining tencells show a normal male karyotype. Loss of the Y chromosome is an age-related change inolder males, and is not considered clinically significant. Due to poor mitotic index, onlythirteen metaphase cells are available for analysis. This study does not exclude thepresence of an abnormal clone within standard analysis parameters. PLEASE SEE ORIGINAL REFERENCE LAB REPORT FOR DETAILS Addendum Signed SIGNATURE ON FILE Shun Vasquez 04/25/23 1155 Addendum #1 Entered: 04/23/23 This addenum is issued to report the results of ancillary studies performed and interpretedat [facility] (see below). FISH MDS extended: Normal PLEASE SEE ORIGINAL REFERENCE LAB REPORT FOR DETAILS Addendum Signed SIGNATURE ON FILE Shun Vasquez 04/23/23 0952 CLINICAL HISTORY SAME FINAL DIAGNOSIS Bone marrow, left, core biopsy, clot section, aspirate smears, and peripheral blood smear: -Normocellular marrow (30% cellular) with relative erythroid hyperplasia and erythroidmaturation dyssynchrony. -Rare immature monocytes seen (1 to 2% of cells). -No significant fibrosis or increase in blasts identified. -Normal storage iron; no ring sideroblasts identified. -Peripheral blood: Normochromic normocytic anemia with occasional microspherocytes,schistocytes, polychromasia, and basophilic stippling; absolute lymphopenia; rarehypersegmented neutrophils present; thrombocytopenia. -Flow cytometry (performed at [facility]): Findings suggestive of immature monocytes. CONTINUED ON NEXT PAGE R UN DATE: 04/30/23 [place] - LAB PAGE 5 RUN TIME: 1419 Specimen Inquiry RUN USER: INTERFACE S PEC #: [id number] PATIENT: TEVIN VAUGHAN #[id number] (Continued) FINAL DIAGNOSIS (Continued) Comment: The above findings can be seen in both reactive and neoplastic conditions(particularly myelodysplastic syndrome). Correlation with pending ancillary studies isrecommended which may support the diagnosis of myelodysplastic syndrome. Additionally,given the peripheral blood findings, a hemolytic process should be ruled out. GROSS DESCRIPTION Specimen #1 is received in formalin in a container labeled with the patient's name anddesignated "bone biopsy" and consists of 1 fragment of tissue, measuring 1.6 cm. Thespecimen is entirely submitted in cassette BB after decalcification. Specimen #2 is received in formalin in a container labeled with the patient's name anddesignated "bone marrow aspirate" and consists of 2 fragments of tissue, measuring 1.2 cm. The specimen is entirely submitted in cassette BM. Also reviewed are 2 peripheral blood smears, 2 bone marrow aspirate smears, 2 iron stainedaspirate smears, 1 iron stained core biopsy, and 1 iron stained clot section. Technical component performed at [facility],[address] [place] [address], [place] [address] Unless gross only, the diagnosis is based upon microscopic examination.Immunohistochemistr y: This test was developed and its performance characteristicsdetermined by this laboratory. It has not been approved nor does it need approvalby the [place] FDA. Appropriate positive and negative controls are reviewed and judgedto be acceptable for performedimmunohistochemistry and/or special stains. This laboratoryis certified under the Clinical Laboratory Improvement Amendments (CLIA-88) as qualified toperform high complexity clinical laboratory testing. MICROSCOPIC DESCRIPTION Review of the peripheral blood smear slides show normochromic normocytic anemia withanisopoikilocytosis including microspherocytes and target cells. Schistocytes are alsoseen but do not appear to be overtly increased. There is mild polychromasia and basophilicstippling present. There is leukopenia with associated lymphopenia. The granulocytesgenerally show normal nuclear segmentation and appropriate cytoplasmic granulation. Rarehypersegmented forms are seen. No Augie rods are seen. No significant left shift is seen. No clear dysplastic features are noted in the white blood cells. There is thrombocytopeniawith generally normal platelet morphology. Review the bone marrow aspirate smears show particles for evaluation. The granulocytesshow normal maturation to segmented cells with appropriate cytoplasmic granulation. Nosignificant dysplasia or left shift is seen. No Augie rods are seen. Lymphocytes andmyeloblasts are not overtly increased. Megakaryocytes are present and are generallymorphologically unremarkable. Erythroid cells are present and generally show fullmaturation though there is some nucleus to cytoplasmic maturation dyssynchrony. A subsetof the monocytes show more open chromatin than normal and prominent nucleoli, likelyrepresenting the immature monocytes seen on flow cytometry. These monocytes are 1 to 2% of CONTINUED ON NEXT PAGE R UN DATE: 04/30/23 [place] [facility] PAGE 6 RUN TIME: 1419 Specimen Inquiry RUN USER: INTERFACE S PEC #: [id number] PATIENT: TEVIN VAUGHAN #[id number] (Continued) MICROSCOPIC DESCRIPTION (Continued) all cells. The myeloid to erythroid ratio is 0.8. Sections of the core biopsy show a normocellular marrow for age (30% cellular). Trilineagehematopoiesis is identified though there appears to be an erythroid predominance. Numerouserythroid islands are seen. The megakaryocytes are present and are generally unremarkablemorphologically. The bony trabeculae are unremarkable. No lymphoid or blast aggregatesare identified. Reticulin stain performed on block BB shows no significant fibrosis. H E sections of the clot section show similar findings to the core biopsy. The erythroidhyperplasia is once again seen. No lymphoid or blast aggregates are identified. Noclearly dysplastic features are noted. Immunohistochemical stains are performed on blockBM. CD3 stains scattered T cells. CD20 stains rare scattered B cells. CD34 stains rarescattered blasts. CD61 highlights megakaryocytes including some small forms. No tightclustering is seen. CD117 stains scattered myeloid cells. E-cadherin highlights theerythroid cells with variable intensity. P53 stains rare cells and is not increased. Iron stain performed on the aspirate smears, core biopsy, and clot section show normalstorage iron. No ring sideroblasts are identified. 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 [facility] CBC W/AUTO [id number] 08:08:00 Test Item Value Reference Range Interpretation Comments WHITE BLOOD CELL (test code = 3.3 x10 3/uL 4.5-11.0 L WBC) RED BLOOD CELL (test code = 2.64 x10 6/uL 4.00-5.60 L RBC) HEMOGLOBIN (test code = HGB) 7.8 g/dL 12.5-16.9 L HEMATOCRIT (test code = HCT) 25.4 % 37.5-50.7 L MEAN CELL VOLUME (test code = 96.2 fL 81.0-99.0 N MCV) MEAN CELL HGB (test code = MCH) 29.5 pg 27.0-33.0 N MEAN CELL HGB CONCETRATION 30.7 g/dL 33.0-37.0 L (test code = MCHC) RED CELL DISTRIBUTION WIDTH CV 17.9 % 11.5-14.5 H (test code = RDW) RED CELL DISTRIBUTION WIDTH SD 62.7 fL 37.0-54.0 H (test code = RDW-SD) PLATELET COUNT (test code = 144 x10 3/uL 150-400 L PLT) MEAN PLATELET VOLUME (test code 11.5 fL 7.0-9.0 H = MPV) NEUTROPHIL % (test code = NT%) 73.0 % 56.0-77.0 N IMMATURE GRANULOCYTE % (test 0.6 % 0.0-2.0 N code = IG%) LYMPHOCYTE % (test code = LY%) 12.6 % 14.0-32.0 L MONOCYTE % (test code = MO%) 10.7 % 4.8-9.0 H EOSINOPHIL % (test code = EO%) 2.5 % 0.3-3.7 N BASOPHIL % (test code = BA%) 0.6 % 0.0-2.0 N NUCLEATED RBC % (test code = 0.0 % 0-0 N NRBC%) NEUTROPHIL # (test code = NT#) 2.38 x10 3/uL 2.0-7.6 N IMMATURE GRANULOCYTE # (test 0.02 x10 3/uL 0.00-0.03 N code = IG#) LYMPHOCYTE # (test code = LY#) 0.41 x10 3/uL 1.0-3.8 L MONOCYTE # (test code = MO#) 0.35 x10 3/uL 0.1-0.8 N EOSINOPHIL # (test code = EO#) 0.08 x10 3/uL 0.0-0.2 N BASOPHIL # (test code = BA#) 0.02 x10 3/uL 0.0-0.2 N NUCLEATED RBC # (test code = 0.00 x10 3/uL 0.0-0.1 N NRBC#) MANUAL DIFF REQUIRED (test code NO = MDIFF) GLUCOSE [id number] 07:41:00 Test Item Value Reference Range Interpretation Comments GLUCOSE BEDSIDE (test 186 MG/DL 70-110 H Perfor med by certified code = GLUBED) 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 [facility] BASIC METABOLIC [id number] 07:37:00 Test Item Value Reference Range Interpretation Comments SODIUM (test code = 140 mEq/L 134-147 N NA) POTASSIUM (test code 4.2 mEq/L 3.4-5.0 N = K) CHLORIDE (test code 107 mEq/L 100-108 N = CL) CARBON DIOXIDE (test 26 mEq/l 21-33 N code = CO2) ANION GAP (test code 12 0-20 N = GAP) GLUCOSE (test code = 164 mg/dL 70-110 H GLU) BLOOD UREA NITROGEN 19 mg/dL 7-18 H (test code = BUN) GLOMERULAR 58.4 70-80 L The Glomerular FILTRATION RATE Filtration R ate is a (test code = GFR) calculated parameterbased on serum Creatinine, pat ient age and sex. GFR va luesless than 60 mL/min/ 1.73 square meters a re indicative ofCh ronic Kidney Disease. Values less than 15 mL/min/1.73squa re meters indicate Kidney failure. The calculation forGFR is based on the CKD-EPI (2020) calculat ion. This formulais race indifferent and is the recommended for nereida for GFRby the Nat nal Kidney Foundati on for Adults.The GFR will not calculate if th e sex is unknown or if thepatient's ag e is <18 years. 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 [facility] GLUCOSE [id number] 11:32:00 Test Item Value Reference Range Interpretation Comments GLUCOSE BEDSIDE (test 247 MG/DL 70-110 H Perfor med by certified code = GLUBED) 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 [facility] BASIC METABOLIC [id number] 09:06:00 Test Item Value Reference Range Interpretation Comments SODIUM (test code = 139 mEq/L 134-147 N NA) POTASSIUM (test code 4.6 mEq/L 3.4-5.0 N = K) CHLORIDE (test code 107 mEq/L 100-108 N = CL) CARBON DIOXIDE (test 24 mEq/l 21-33 N code = CO2) ANION GAP (test code 12 0-20 N = GAP) GLUCOSE (test code = 199 mg/dL 70-110 H GLU) BLOOD UREA NITROGEN 19 mg/dL 7-18 H (test code = BUN) GLOMERULAR 58.4 70-80 L The Glomerular FILTRATION RATE Filtration R ate is a (test code = GFR) calculated parameterbased on serum Creatinine, pat ient age and sex. GFR va luesless than 60 mL/min/ 1.73 square meters a re indicative ofCh ronic Kidney Disease. Values less than 15 mL/min/1.73squa re meters indicate Kidney failure. The calculation forGFR is based on the CKD-EPI (2020) calculat ion. This formulais race indifferent and is the recommended for nereida for GFRby the Nat nal Kidney Foundati on for Adults.The GFR will not calculate if th e sex is unknown or if thepatient's ag e is <18 years. CREATININE (test 1.3 mg/dL 0.6-1.3 N code = CREAT) CALCIUM (test code = 8.3 mg/dL 8.0-10.5 N CA) CBC W/AUTO [id number] 08:26:00 Test Item Value Reference Range Interpretation Comments WHITE BLOOD CELL (test code = 3.7 x10 3/uL 4.5-11.0 L WBC) RED BLOOD CELL (test code = 2.62 x10 6/uL 4.00-5.60 L RBC) HEMOGLOBIN (test code = HGB) 7.7 g/dL 12.5-16.9 L HEMATOCRIT (test code = HCT) 25.0 % 37.5-50.7 L MEAN CELL VOLUME (test code = 95.4 fL 81.0-99.0 N MCV) MEAN CELL HGB (test code = MCH) 29.4 pg 27.0-33.0 N MEAN CELL HGB CONCETRATION 30.8 g/dL 33.0-37.0 L (test code = MCHC) RED CELL DISTRIBUTION WIDTH CV 18.1 % 11.5-14.5 H (test code = RDW) RED CELL DISTRIBUTION WIDTH SD 61.8 fL 37.0-54.0 H (test code = RDW-SD) PLATELET COUNT (test code = 139 x10 3/uL 150-400 L PLT) MEAN PLATELET VOLUME (test code 10.7 fL 7.0-9.0 H = MPV) NEUTROPHIL % (test code = NT%) 74.4 % 56.0-77.0 N IMMATURE GRANULOCYTE % (test 0.8 % 0.0-2.0 N code = IG%) LYMPHOCYTE % (test code = LY%) 12.4 % 14.0-32.0 L MONOCYTE % (test code = MO%) 9.7 % 4.8-9.0 H EOSINOPHIL % (test code = EO%) 1.9 % 0.3-3.7 N BASOPHIL % (test code = BA%) 0.8 % 0.0-2.0 N NUCLEATED RBC % (test code = 0.0 % 0-0 N NRBC%) NEUTROPHIL # (test code = NT#) 2.75 x10 3/uL 2.0-7.6 N IMMATURE GRANULOCYTE # (test 0.03 x10 3/uL 0.00-0.03 N code = IG#) LYMPHOCYTE # (test code = LY#) 0.46 x10 3/uL 1.0-3.8 L MONOCYTE # (test code = MO#) 0.36 x10 3/uL 0.1-0.8 N EOSINOPHIL # (test code = EO#) 0.07 x10 3/uL 0.0-0.2 N BASOPHIL # (test code = BA#) 0.03 x10 3/uL 0.0-0.2 N NUCLEATED RBC # (test code = 0.00 x10 3/uL 0.0-0.1 N NRBC#) MANUAL DIFF REQUIRED (test code NO = MDIFF) GLUCOSE [id number] 08:19:00 Test Item Value Reference Range Interpretation Comments GLUCOSE BEDSIDE (test 196 MG/DL 70-110 H Perfor med by certified code = GLUBED) 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 [facility] GLUCOSE [id number] 19:34:00 Test Item Value Reference Range Interpretation Comments GLUCOSE BEDSIDE (test 203 MG/DL 70-110 H Perfor med by certified code = GLUBED) 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 [facility] PROTEIN ELECTROPHORESIS [id number] 16:11:00 Test Item Value Reference Range Interpretation Comments TOTAL PROTEIN 5.5 g/dL 6.0-8.5 L (test code = PROTE) ALBUMIN (test 2.6 g/dL 2.9-4.4 A code = ALBE) SZIYA-5-BABPZBGP 0.3 g/dL 0.0-0.4 (test code = A1G) QPIZP-4-JHCEKRZY 0.7 g/dL 0.4-1.0 (test code = A2G) BETA GLOBULIN 0.7 g/dL 0.7-1.3 (test code = BG) GAMMA GLOBULIN 1.2 g/dL 0.4-1.8 (test code = GG) M-SPIKE,SERUM Not Observed g/dL Not Observed (test code = MSPIKES) GLOBULIN ELECT 2.9 g/dL 2.2-3.9 (test code = GLOBE) ALBUMIN/GLOBULIN 0.9 0.7-1.7 RATIO (test code = AGE) PROT.ELECTROPH.IN See_Comment The SPE pa ttern TERPRETATION reflects (test code = hypoalbuminemia . ELEINT) Evidence ofmonoclonal pr otein is not apparent.Perfor med At: [facility] [address] [place], [place] [id number] Kyle L MD Ph:[phone] rform ed At: [facility] [address] [place], [place] [id number] h CN MD Ph:[phone] 0The SPE pattern ref lects hypoalbuminemia . Evidence ofmonoclonal pr otein is not apparent.Perfor med At: [facility] [address] [place], [place] [id number] Kyle L MD Ph:[phone] rform ed At: [facility] [address] [place], [place] [id number] h CN MD Ph:[phone] [Automated mess age] The system [employer] generated this result transmit boris reference range : (). The reference r susi was not used to interpret this result as normal/abnormal . 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 [facility] BASIC METABOLIC [id number] 08:24:00 Test Item Value Reference Range Interpretation Comments SODIUM (test code = 137 mEq/L 134-147 N NA) POTASSIUM (test code 4.4 mEq/L 3.4-5.0 N = K) CHLORIDE (test code 110 mEq/L 100-108 H = CL) CARBON DIOXIDE (test 27 mEq/l 21-33 N code = CO2) ANION GAP (test code 4 0-20 N = GAP) GLUCOSE (test code = 192 mg/dL 70-110 H GLU) BLOOD UREA NITROGEN 22 mg/dL 7-18 H (test code = BUN) GLOMERULAR 53.4 70-80 L The Glomerular FILTRATION RATE Filtration R ate is a (test code = GFR) calculated parameterbased on serum Creatinine, pat ient age and sex. GFR va luesless than 60 mL/min/ 1.73 square meters a re indicative ofCh ronic Kidney Disease. Values less than 15 mL/min/1.73squa re meters indicate Kidney failure. The calculation forGFR is based on the CKD-EPI (2020) calculat ion. This formulais race indifferent and is the recommended for nereida for GFRby the [facility] Kidney Foundati on for Adults.The GFR will not calculate if th e sex is unknown or if thepatient's ag e is <18 years. CREATININE (test 1.4 mg/dL 0.6-1.3 H code = CREAT) CALCIUM (test code = 8.0 mg/dL 8.0-10.5 N CA) CBC W/AUTO [id number] 08:09:00 Test Item Value Reference Range Interpretation Comments WHITE BLOOD CELL (test code = 3.1 x10 3/uL 4.5-11.0 L WBC) RED BLOOD CELL (test code = 2.58 x10 6/uL 4.00-5.60 L RBC) HEMOGLOBIN (test code = HGB) 7.5 g/dL 12.5-16.9 L HEMATOCRIT (test code = HCT) 24.3 % 37.5-50.7 L MEAN CELL VOLUME (test code = 94.2 fL 81.0-99.0 N MCV) MEAN CELL HGB (test code = MCH) 29.1 pg 27.0-33.0 N MEAN CELL HGB CONCETRATION 30.9 g/dL 33.0-37.0 L (test code = MCHC) RED CELL DISTRIBUTION WIDTH CV 17.8 % 11.5-14.5 H (test code = RDW) RED CELL DISTRIBUTION WIDTH SD 59.1 fL 37.0-54.0 H (test code = RDW-SD) PLATELET COUNT (test code = 137 x10 3/uL 150-400 L PLT) MEAN PLATELET VOLUME (test code 11.0 fL 7.0-9.0 H = MPV) NEUTROPHIL % (test code = NT%) 73.8 % 56.0-77.0 N IMMATURE GRANULOCYTE % (test 1.0 % 0.0-2.0 N code = IG%) LYMPHOCYTE % (test code = LY%) 12.8 % 14.0-32.0 L MONOCYTE % (test code = MO%) 9.8 % 4.8-9.0 H EOSINOPHIL % (test code = EO%) 1.6 % 0.3-3.7 N BASOPHIL % (test code = BA%) 1.0 % 0.0-2.0 N NUCLEATED RBC % (test code = 0.0 % 0-0 N NRBC%) NEUTROPHIL # (test code = NT#) 2.25 x10 3/uL 2.0-7.6 N IMMATURE GRANULOCYTE # (test 0.03 x10 3/uL 0.00-0.03 N code = IG#) LYMPHOCYTE # (test code = LY#) 0.39 x10 3/uL 1.0-3.8 L MONOCYTE # (test code = MO#) 0.30 x10 3/uL 0.1-0.8 N EOSINOPHIL # (test code = EO#) 0.05 x10 3/uL 0.0-0.2 N BASOPHIL # (test code = BA#) 0.03 x10 3/uL 0.0-0.2 N NUCLEATED RBC # (test code = 0.00 x10 3/uL 0.0-0.1 N NRBC#) MANUAL DIFF REQUIRED (test code NO = RADHA) GLUCOSE [id number] 07:24:00 Test Item Value Reference Range Interpretation Comments GLUCOSE BEDSIDE (test 180 MG/DL 70-110 H Perfor med by certified code = GLUBED) 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 [facility] - CT GUID [facility] (Biopsy/Asp)2023-04-17 00:00:00 [facility] 1950 Sex: M Name: TEVIN VAUGHAN [facility] : 1950 Age/S: 73 / M [address] [place] [address] Unit #: [id number] Loc: TERESA [place] [address] Phys: Dakota Arvizu MD Acct: [id number] Dis Date: Status: ADM IN PHONE #: [phone] Exam Date: 04/17/2023 1035 FAX #: [phone] Reason: Anemia, leucopenia, evaluate for MDS EXAMS: CPT CODE: [id number] CT GUID [facility] (Biopsy/Asp) [address] PROCEDURE INFORMATION: Exam: IR Diagnostic Bone Marrow Biopsies And Aspirations Exam date and time: 04/17/2023 10:19 AM Age: 73 years old Clinical indication: Other: Anemia, leucopenia, evaluate for mds TECHNIQUE: Imaging protocol: Diagnostic bone marrow biopsies and aspirations. The interpreting physician was present and supervised the procedure. CT guidance was provided. Radiation optimization: All CT scans at this facility use at least one of these dose optimization techniques: automated exposure control; mA and/or kV adjustment per patient size (includes targeted exams where dose is matched to clinical indication); or iter ative reconstruction. Guidance contrast: CT contrast route: Intra-venous; COMPARISON: US RETRPERITONEAL COM 11/13/2022 06:55 RADIATION DOSE METRICS: Reference air kerma (JUANCARLOS): Not provided. Total DLP (mGy-cm): 118 FINDINGS: Advanced practice providers: None. CONSENT AND SEDATION INFO: Consent: The risk s, benefits and alternatives of the procedure were discussed prior to the procedure. Informed consent was obtained. Time out: Timeout was performed prior to the procedure. Level of sedation: I administered moderate sedation throughout this procedure. The patient was monitored and observed by a hospital nurse, an independent trained observer. The nurse pushed medications at my direction and monitored the patient's level of consciousness and physiological status throughout. Moderate sedation record ispermanently stored in the hospital information system. Medications for sedation: 1 mg of IV Versed and 50 mcg of IV Fentanyl. Total intra-service sedation time (minutes): 10 minutes. Sterile technique:All elements of maximal sterile barrier technique were followed which include cap, mask, sterile gown, sterile gloves, sterile full-body drape, hand hygiene, 2% chlorhexidine for cutaneous antisepsis (skin prep), sterile ultrasound gel, and sterile probe cover. Procedure summary: The patient was placed in the prone position. 1% lidocaine was used for local anesthesia. Using CT guidance, 11-gauge needle PAGE 1 Signed Report (CONTINUED) Name: TEVIN VAUGHAN [facility] : 1950 Age/S: 73 / M [address] [place] [address] Unit #: [id number] Loc: [place] [address] Phys: Dakota Arvizu MD Acct: [id number] Dis Date: Status: ADM IN PHONE #: [phone] Exam Date: 04/17/2023 1035 FAX #: [phone] Reason: Anemia, leucopenia, evaluate for MDS EXAMS: CPT CODE: [id number] CT GUID [facility] (Biopsy/Asp) 65275 (Continued) was advanced into the posterior left iliac bone. CT imaging confirmed proper p ositioning of the needle with the tip in the medullary bone. Approximately 1 cc of bone marrow was initially aspirated and given to pathology. The presence of spicules was confirmed. Ten cc of bone marrow was aspirated and given to pathology. Two cm long core biopsy sample of bone marrow was obtained utilizing the guide needle. The core biopsy sample was placed in formalin container and appeared grossly adequate. Pressure was applied at the puncture site with adequate hemostasis. Procedural imaging: Post biopsy imaging demonstrates no hematoma. Complications: No immediate complications. IMPRESSION: CT-guided bone marrow aspiration and core biopsy. at 1128 Reported and signed by: Ashley Croft M.D. 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 [facility] GLUCOSE [id number] 17:00:00 Test Item Value Reference Range Interpretation Comments GLUCOSE BEDSIDE (test 180 MG/DL 70-110 H Perfor med by certified code = GLUBED) 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 [facility] [id number] 16:11:00 Test Item Value Reference Range Interpretation Comments HAPTOGLOBIN (test code 125 mg/dL 34-355 Perfo rmed At: DA = HAPT) [facility] [address] [place], [place] [id number] h POP HERNANDEZ Ph:[phone] GLUCOSE [id number] 11:14:00 Test Item Value Reference Range Interpretation Comments GLUCOSE BEDSIDE (test 218 MG/DL 70-110 H Perfor med by certified code = GLUBED) 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 [facility] CBC W/AUTO [id number] 08:32:00 Test Item Value Reference Range Interpretation Comments WHITE BLOOD CELL (test code = 3.7 x10 3/uL 4.5-11.0 L WBC) RED BLOOD CELL (test code = 2.50 x10 6/uL 4.00-5.60 L RBC) HEMOGLOBIN (test code = HGB) 7.3 g/dL 12.5-16.9 L HEMATOCRIT (test code = HCT) 23.5 % 37.5-50.7 L MEAN CELL VOLUME (test code = 94.0 fL 81.0-99.0 N MCV) MEAN CELL HGB (test code = MCH) 29.2 pg 27.0-33.0 N MEAN CELL HGB CONCETRATION 31.1 g/dL 33.0-37.0 L (test code = MCHC) RED CELL DISTRIBUTION WIDTH CV 17.9 % 11.5-14.5 H (test code = RDW) RED CELL DISTRIBUTION WIDTH SD 58.3 fL 37.0-54.0 H (test code = RDW-SD) PLATELET COUNT (test code = 149 x10 3/uL 150-400 L PLT) MEAN PLATELET VOLUME (test code 11.1 fL 7.0-9.0 H = MPV) NEUTROPHIL % (test code = NT%) 75.6 % 56.0-77.0 N IMMATURE GRANULOCYTE % (test 0.8 % 0.0-2.0 N code = IG%) LYMPHOCYTE % (test code = LY%) 10.2 % 14.0-32.0 L MONOCYTE % (test code = MO%) 10.5 % 4.8-9.0 H EOSINOPHIL % (test code = EO%) 2.4 % 0.3-3.7 N BASOPHIL % (test code = BA%) 0.5 % 0.0-2.0 N NUCLEATED RBC % (test code = 0.0 % 0-0 N NRBC%) NEUTROPHIL # (test code = NT#) 2.80 x10 3/uL 2.0-7.6 N IMMATURE GRANULOCYTE # (test 0.03 x10 3/uL 0.00-0.03 N code = IG#) LYMPHOCYTE # (test code = LY#) 0.38 x10 3/uL 1.0-3.8 L MONOCYTE # (test code = MO#) 0.39 x10 3/uL 0.1-0.8 N EOSINOPHIL # (test code = EO#) 0.09 x10 3/uL 0.0-0.2 N BASOPHIL # (test code = BA#) 0.02 x10 3/uL 0.0-0.2 N NUCLEATED RBC # (test code = 0.00 x10 3/uL 0.0-0.1 N NRBC#) MANUAL DIFF REQUIRED (test code NO = MDIFF) BASIC METABOLIC [id number] 08:29:00 Test Item Value Reference Range Interpretation Comments SODIUM (test code = 137 mEq/L 134-147 N NA) POTASSIUM (test code 4.2 mEq/L 3.4-5.0 N = K) CHLORIDE (test code 107 mEq/L 100-108 N = CL) CARBON DIOXIDE (test 27 mEq/l 21-33 N code = CO2) ANION GAP (test code 8 0-20 N = GAP) GLUCOSE (test code = 204 mg/dL 70-110 H GLU) BLOOD UREA NITROGEN 24 mg/dL 7-18 H (test code = BUN) GLOMERULAR 53.4 70-80 L The Glomerular FILTRATION RATE Filtration R ate is a (test code = GFR) calculated parameterbased on serum Creatinine, pat ient age and sex. GFR va luesless than 60 mL/min/ 1.73 square meters a re indicative ofCh ronic Kidney Disease. Values less than 15 mL/min/1.73squa re meters indicate Kidney failure. The calculation forGFR is based on the CKD-EPI (2020) calculat ion. This formulais race indifferent and is the recommended for nereida for GFRby the [facility] on for Adults.The GFR will not calculate if th e sex is unknown or if thepatient's ag e is <18 years. 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 [facility] GLUCOSE [id number] 15:45:00 Test Item Value Reference Range Interpretation Comments GLUCOSE BEDSIDE (test 184 MG/DL 70-110 H Perfor med by certified code = GLUBED) 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 [facility] GLUCOSE [id number] 10:59:00 Test Item Value Reference Range Interpretation Comments GLUCOSE BEDSIDE (test 202 MG/DL 70-110 H Perfor med by certified code = GLUBED) 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 [facility] VITAMIN [id number] 08:33:00 Test Item Value Reference Range Interpretation Comments VITAMIN B12 (test code = VITB12) 589 pg/mL 193-986 N FOLIC [id number] 08:33:00 Test Item Value Reference Range Interpretation Comments FOLIC ACID (test code = FOL) 14.0 ng/mL 3.1-17.5 N BASIC METABOLIC [id number] 08:06:00 Test Item Value Reference Range Interpretation Comments SODIUM (test code = 138 mEq/L 134-147 N NA) POTASSIUM (test code 4.1 mEq/L 3.4-5.0 N = K) CHLORIDE (test code 109 mEq/L 100-108 H = CL) CARBON DIOXIDE (test 26 mEq/l 21-33 N code = CO2) ANION GAP (test code 7 0-20 N = GAP) GLUCOSE (test code = 192 mg/dL 70-110 H GLU) BLOOD UREA NITROGEN 20 mg/dL 7-18 H (test code = BUN) GLOMERULAR 58.4 70-80 L The Glomerular FILTRATION RATE Filtration R ate is a (test code = GFR) calculated parameterbased on serum Creatinine, pat ient age and sex. GFR va luesless than 60 mL/min/ 1.73 square meters a re indicative ofCh ronic Kidney Disease. Values less than 15 mL/min/1.73squa re meters indicate Kidney failure. The calculation forGFR is based on the CKD-EPI (2020) calculat ion. This formulais race indifferent and is the recommended for nereida for GFRby the [facility] on for Adults.The GFR will not calculate if th e sex is unknown or if thepatient's ag e is <18 years. CREATININE (test 1.3 mg/dL 0.6-1.3 N code = CREAT) CALCIUM (test code = 8.4 mg/dL 8.0-10.5 N CA) LACTIC DEHYDROGENASE(LDH)2023-04-15 08:06:00 Test Item Value Reference Range Interpretation Comments LACTIC DEHYDROGENASE(LDH) (test 191 IUnits/L 87-241 N code = LDH) [id number] 08:06:00 Test Item Value Reference Range Interpretation Comments MAGNESIUM (test code = MAG) 1.94 mg/dL 1.80-2.40 RETIC COUNT (AUTOMATED)2023-04-15 07:32:00 Test Item Value Reference Range Interpretation Comments RETIC COUNT (AUTOMATED) (test code = 5.9 % 0.3-2.3 H RETICA) CBC W/AUTO [id number] 07:31:00 Test Item Value Reference Range Interpretation Comments WHITE BLOOD CELL (test code = 3.9 x10 3/uL 4.5-11.0 L WBC) RED BLOOD CELL (test code = 2.72 x10 6/uL 4.00-5.60 L RBC) HEMOGLOBIN (test code = HGB) 8.0 g/dL 12.5-16.9 L HEMATOCRIT (test code = HCT) 25.6 % 37.5-50.7 L MEAN CELL VOLUME (test code = 94.1 fL 81.0-99.0 N MCV) MEAN CELL HGB (test code = MCH) 29.4 pg 27.0-33.0 N MEAN CELL HGB CONCETRATION 31.3 g/dL 33.0-37.0 L (test code = MCHC) RED CELL DISTRIBUTION WIDTH CV 17.6 % 11.5-14.5 H (test code = RDW) RED CELL DISTRIBUTION WIDTH SD 57.1 fL 37.0-54.0 H (test code = RDW-SD) PLATELET COUNT (test code = 164 x10 3/uL 150-400 N PLT) MEAN PLATELET VOLUME (test code 11.0 fL 7.0-9.0 H = MPV) NEUTROPHIL % (test code = NT%) 80.3 % 56.0-77.0 H IMMATURE GRANULOCYTE % (test 0.5 % 0.0-2.0 N code = IG%) LYMPHOCYTE % (test code = LY%) 7.3 % 14.0-32.0 L MONOCYTE % (test code = MO%) 9.6 % 4.8-9.0 H EOSINOPHIL % (test code = EO%) 1.8 % 0.3-3.7 N BASOPHIL % (test code = BA%) 0.5 % 0.0-2.0 N NUCLEATED RBC % (test code = 0.0 % 0-0 N NRBC%) NEUTROPHIL # (test code = NT#) 3.10 x10 3/uL 2.0-7.6 N IMMATURE GRANULOCYTE # (test 0.02 x10 3/uL 0.00-0.03 N code = IG#) LYMPHOCYTE # (test code = LY#) 0.28 x10 3/uL 1.0-3.8 L MONOCYTE # (test code = MO#) 0.37 x10 3/uL 0.1-0.8 N EOSINOPHIL # (test code = EO#) 0.07 x10 3/uL 0.0-0.2 N BASOPHIL # (test code = BA#) 0.02 x10 3/uL 0.0-0.2 N NUCLEATED RBC # (test code = 0.00 x10 3/uL 0.0-0.1 N NRBC#) MANUAL DIFF REQUIRED (test code NO = MDIFF) GLUCOSE [id number] 07:05:00 Test Item Value Reference Range Interpretation Comments GLUCOSE BEDSIDE (test 207 MG/DL 70-110 H Perfor med by certified code = GLUBED) 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 [facility] GLUCOSE [id number] 20:41:00 Test Item Value Reference Range Interpretation Comments GLUCOSE BEDSIDE (test 204 MG/DL 70-110 H Perfor med by certified code = GLUBED) 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 [facility] GLUCOSE [id number] 16:37:00 Test Item Value Reference Range Interpretation Comments GLUCOSE BEDSIDE (test 215 MG/DL 70-110 H Perfor med by certified code = GLUBED) 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 [facility] LOW MOLECULAR WT [id number] 14:03:00 Test Item Value Reference Range Interpretation Comments LOW MOLECULAR WT 0.96 IU/mL 0.60-1.00 N LMWH Therap eutic HEPARIN (test code = Ranges (target anti-Xa LMWHEP) levels measured 3-5 hours after dose):Enoxapari n (Lovenox) - Twi ce daily dosin .6-1.0 IU/mL Once stefano y dosing: >1.0 IU/mLTinzaparin (lnnohep) - Onc e daily dosin.85 IU/mLDalteparin (FragMin) - Onc e daily dosin.05 IU /mL GLUCOSE [id number] 11:32:00 Test Item Value Reference Range Interpretation Comments GLUCOSE BEDSIDE (test 209 MG/DL 70-110 H Perfor med by certified code = GLUBED) 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 [facility] CBC W/AUTO [id number] 08:46:00 Test Item Value Reference Range Interpretation Comments WHITE BLOOD CELL (test code = 3.5 x10 3/uL 4.5-11.0 L WBC) RED BLOOD CELL (test code = 2.72 x10 6/uL 4.00-5.60 L RBC) HEMOGLOBIN (test code = HGB) 8.0 g/dL 12.5-16.9 L HEMATOCRIT (test code = HCT) 25.5 % 37.5-50.7 L MEAN CELL VOLUME (test code = 93.8 fL 81.0-99.0 N MCV) MEAN CELL HGB (test code = MCH) 29.4 pg 27.0-33.0 N MEAN CELL HGB CONCETRATION 31.4 g/dL 33.0-37.0 L (test code = MCHC) RED CELL DISTRIBUTION WIDTH CV 16.8 % 11.5-14.5 H (test code = RDW) RED CELL DISTRIBUTION WIDTH SD 55.1 fL 37.0-54.0 H (test code = RDW-SD) PLATELET COUNT (test code = 158 x10 3/uL 150-400 N PLT) MEAN PLATELET VOLUME (test code 10.6 fL 7.0-9.0 H = MPV) NEUTROPHIL % (test code = NT%) 78.5 % 56.0-77.0 H IMMATURE GRANULOCYTE % (test 0.9 % 0.0-2.0 N code = IG%) LYMPHOCYTE % (test code = LY%) 9.7 % 14.0-32.0 L MONOCYTE % (test code = MO%) 8.6 % 4.8-9.0 N EOSINOPHIL % (test code = EO%) 1.4 % 0.3-3.7 N BASOPHIL % (test code = BA%) 0.9 % 0.0-2.0 N NUCLEATED RBC % (test code = 0.0 % 0-0 N NRBC%) NEUTROPHIL # (test code = NT#) 2.74 x10 3/uL 2.0-7.6 N IMMATURE GRANULOCYTE # (test 0.03 x10 3/uL 0.00-0.03 N code = IG#) LYMPHOCYTE # (test code = LY#) 0.34 x10 3/uL 1.0-3.8 L MONOCYTE # (test code = MO#) 0.30 x10 3/uL 0.1-0.8 N EOSINOPHIL # (test code = EO#) 0.05 x10 3/uL 0.0-0.2 N BASOPHIL # (test code = BA#) 0.03 x10 3/uL 0.0-0.2 N NUCLEATED RBC # (test code = 0.00 x10 3/uL 0.0-0.1 N NRBC#) MANUAL DIFF REQUIRED (test code NO = MDIFF) GLUCOSE [id number] 07:31:00 Test Item Value Reference Range Interpretation Comments GLUCOSE BEDSIDE (test 200 MG/DL 70-110 H [facility] med by certified code = GLUBED) 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 [facility] COMPREHENSIVE METABOLIC [id number] 06:23:00 Test Item Value Reference Range Interpretation Comments SODIUM (test code = 139 mEq/L 134-147 N NA) POTASSIUM (test code 4.2 mEq/L 3.4-5.0 N = K) CHLORIDE (test code 110 mEq/L 100-108 H = CL) CARBON DIOXIDE (test 26 mEq/l 21-33 N code = CO2) ANION GAP (test code 7 0-20 N = GAP) GLUCOSE (test code = 208 mg/dL 70-110 H GLU) BLOOD UREA NITROGEN 16 mg/dL 7-18 N (test code = BUN) GLOMERULAR 58.4 70-80 L The Glomerular FILTRATION RATE Filtration R ate is a (test code = GFR) calculated parameterbased on serum Creatinine, pat ient age and sex. GFR va luesless than 60 mL/min/ 1.73 square meters a re indicative ofCh ronic Kidney Disease. Values less than 15 mL/min/1.73squa re meters indicate Kidney failure. The calculation for GFR is based on the CK D-EPI (2020) calculat ion. This formulais race indifferent and is the recommended for nereida for GFRby the [facility] for Adults.The GFR will not calculate if th e sex is unknown or if thepatient's ag e is <18 years. CREATININE (test 1.3 mg/dL 0.6-1.3 N code = CREAT) TOTAL PROTEIN (test 5.6 g/dL 6.4-8.2 L code = PROT) ALBUMIN (test code = 2.50 g/dL 3.4-5.0 L ALB) CALCIUM (test code = 8.3 mg/dL 8.0-10.5 N CA) BILIRUBIN TOTAL 0.20 mg/dL 0.0-1.0 N (test code = BILT) SGOT/AST (test code 17 IUnit/L 15-37 N = AST) SGPT/ALT (test code 19 IUnit/L 30-65 L = ALT) ALKALINE PHOSPHATASE 80 IUnit/L 20-125 N TOTAL (test code = ALKP) [id number] 06:23:00 Test Item Value Reference Range Interpretation Comments MAGNESIUM (test code = MAG) 1.39 mg/dL 1.80-2.40 L CALCIUM [id number] 06:23:00 Test Item Value Reference Range Interpretation Comments CALCIUM IONIZED (test code = BIBIANA) 1.16 MMOL/L 1.09-1.30 N - XR CHEST 1 [id number] 00:00:00 [facility] : 1950 Sex: M FAX: Dulce Mcguire MD [place]: St: [facility] FAX: Elvie Gamboa MD [phone] Name: TEVIN VAUGHAN [facility] Gabriella Pope : 1950 Age/S: 73/M [address] [place] [address] Bl Unit #: [id number] Loc: G.5517 [place] [address] Phys: Elvie Gamboa MD Acct: [id number] Dis Date: Status: ADM IN PHONE #: [phone] Exam Date: 04/13/2023 1720 FAX #: [phone] Reason: SHORTNESS OF BREADTH EXAMS: CPT CODE: [id number] XR CHEST 1 V 49018 PROCEDURE INFORMATION: Exam: XR Chest Exam date and time: 04/13/2023 4:56 PM Age: 73 years old Clinical indication: Shortness of breath; Additional info: Shortness of breadth TECHNIQUE: Imaging protocol: Radiologic exam of the chest. Views: 1 view. COMPARISON: 1. DX XR CHEST 2 V 04/08/2023 2:38 PM 2. CTA CHEST, CTA CHEST 03/03/2023 11:42 PM FINDINGS: Lungs: Nodular opacity in the right lower lung is again seen. Otherwise, no focal airspace disease or evidence of pulmonary edema. Pleural spaces: No pleu ral effusion. No pneumothorax. Heart/Mediastinum: Unchanged cardiomediastinal silhouette. Bones/joints: Median sternotomy changes. IMPRESSION: No acute cardiopulmonary abnormality. at 0616 Reported and signed by: Margarito Borges M.D. 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 [facility] GLUCOSE [id number] 16:31:00 Test Item Value Reference Range Interpretation Comments GLUCOSE BEDSIDE (test 135 MG/DL 70-110 H Perfor med by certified code = GLUBED) 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 [facility] GLUCOSE [id number] 12:11:00 Test Item Value Reference Range Interpretation Comments GLUCOSE BEDSIDE (test 211 MG/DL 70-110 H Perfor med by certified code = GLUBED) 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 [facility] GLUCOSE [id number] 08:31:00 Test Item Value Reference Range Interpretation Comments GLUCOSE BEDSIDE (test 170 MG/DL 70-110 H Perfor med by certified code = GLUBED) 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 [facility] BASIC METABOLIC [id number] 07:58:00 Test Item Value Reference Range Interpretation Comments SODIUM (test code = 141 mEq/L 134-147 N NA) POTASSIUM (test code 5.0 mEq/L 3.4-5.0 N SPECIME N = K) HEMOLYZED.Resul ts known to be adversely affected by hemolysis ar e: Potassium Magne sium LDH Phosphorus CHLORIDE (test code 112 mEq/L 100-108 H = CL) CARBON DIOXIDE (test 24 mEq/l 21-33 N code = CO2) ANION GAP (test code 10 0-20 N = GAP) GLUCOSE (test code = 173 mg/dL 70-110 H GLU) BLOOD UREA NITROGEN 13 mg/dL 7-18 N (test code = BUN) GLOMERULAR 64.3 70-80 L The Glomerular FILTRATION RATE Filtration R ate is a (test code = GFR) calculated parameterbased on serum Creatinine, pat ient age and sex. GFR va luesless than 60 mL/min/ 1.73 square meters a re indicative ofCh ronic Kidney Disease. Values less than 15 mL/min/1.73squa re meters indicate Kidney failure. The calculation forGFR is based on the CKD-EPI (2020) calculat ion. This formulais race indifferent and is the recommended for nereida for GFRby the [facility] on for Adults.The GFR will not calculate if th e sex is unknown or if thepatient's ag e is <18 years. CREATININE (test 1.2 mg/dL 0.6-1.3 N code = CREAT) CALCIUM (test code = 8.1 mg/dL 8.0-10.5 N CA) LOW MOLECULAR WT [id number] 07:32:00 Test Item Value Reference Range Interpretation Comments LOW MOLECULAR WT 0.56 IU/mL 0.60-1.00 L LMWH Therap eutic HEPARIN (test code = Ranges (target anti-Xa LMWHEP) levels measured 3-5 hours after dose):Enoxapari n (Lovenox) - Twi ce daily dosin .6-1.0 IU/mL Once stefano y dosing: >1.0 IU/mLTinzaparin (lnnohep) - Onc e daily dosin.85 IU/mLDalteparin (FragMin) - Onc e daily dosin.05 IU /mL CBC W/AUTO [id number] 07:19:00 Test Item Value Reference Range Interpretation Comments WHITE BLOOD CELL (test code = 3.6 x10 3/uL 4.5-11.0 L WBC) RED BLOOD CELL (test code = 3.13 x10 6/uL 4.00-5.60 L RBC) HEMOGLOBIN (test code = HGB) 9.0 g/dL 12.5-16.9 L HEMATOCRIT (test code = HCT) 29.6 % 37.5-50.7 L MEAN CELL VOLUME (test code = 94.6 fL 81.0-99.0 N MCV) MEAN CELL HGB (test code = MCH) 28.8 pg 27.0-33.0 N MEAN CELL HGB CONCETRATION 30.4 g/dL 33.0-37.0 L (test code = MCHC) RED CELL DISTRIBUTION WIDTH CV 16.8 % 11.5-14.5 H (test code = RDW) RED CELL DISTRIBUTION WIDTH SD 55.4 fL 37.0-54.0 H (test code = RDW-SD) PLATELET COUNT (test code = 180 x10 3/uL 150-400 N PLT) MEAN PLATELET VOLUME (test code 10.5 fL 7.0-9.0 H = MPV) NEUTROPHIL % (test code = NT%) 80.5 % 56.0-77.0 H IMMATURE GRANULOCYTE % (test 1.4 % 0.0-2.0 N code = IG%) LYMPHOCYTE % (test code = LY%) 8.9 % 14.0-32.0 L MONOCYTE % (test code = MO%) 6.7 % 4.8-9.0 N EOSINOPHIL % (test code = EO%) 1.7 % 0.3-3.7 N BASOPHIL % (test code = BA%) 0.8 % 0.0-2.0 N NUCLEATED RBC % (test code = 0.0 % 0-0 N NRBC%) NEUTROPHIL # (test code = NT#) 2.90 x10 3/uL 2.0-7.6 N IMMATURE GRANULOCYTE # (test 0.05 x10 3/uL 0.00-0.03 H code = IG#) LYMPHOCYTE # (test code = LY#) 0.32 x10 3/uL 1.0-3.8 L MONOCYTE # (test code = MO#) 0.24 x10 3/uL 0.1-0.8 N EOSINOPHIL # (test code = EO#) 0.06 x10 3/uL 0.0-0.2 N BASOPHIL # (test code = BA#) 0.03 x10 3/uL 0.0-0.2 N NUCLEATED RBC # (test code = 0.00 x10 3/uL 0.0-0.1 N NRBC#) MANUAL DIFF REQUIRED (test code NO = MDIFF) GLUCOSE [id number] 16:46:00 Test Item Value Reference Range Interpretation Comments GLUCOSE BEDSIDE (test 172 MG/DL 70-110 H Perfor med by certified code = GLUBED) 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 [facility] GLUCOSE [id number] 11:02:00 Test Item Value Reference Range Interpretation Comments GLUCOSE BEDSIDE (test 139 MG/DL 70-110 H Perfor med by certified code = GLUBED) 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 [facility] COMPREHENSIVE METABOLIC [id number] 07:57:00 Test Item Value Reference Range Interpretation Comments SODIUM (test code = 143 mEq/L 134-147 N NA) POTASSIUM (test code 4.4 mEq/L 3.4-5.0 N = K) CHLORIDE (test code 111 mEq/L 100-108 H = CL) CARBON DIOXIDE (test 25 mEq/l 21-33 N code = CO2) ANION GAP (test code 12 0-20 N = GAP) GLUCOSE (test code = 171 mg/dL 70-110 H GLU) BLOOD UREA NITROGEN 20 mg/dL 7-18 H (test code = BUN) GLOMERULAR 58.4 70-80 L The Glomerular FILTRATION RATE Filtration R ate is a (test code = GFR) calculated parameterbased on serum Creatinin e, patient age and sex. GFR valuesless than 60 mL/min/1.73 squ are meters are sherita cative ofChronic Kidne y Disease. Values less than 15 mL/min/1.73squa re meters indicate Kidney failure. The calculation for GFR is based on the CK D-EPI (2020) calculat ion. This formulais race indifferent and is the recommended for nereida for GFRby the [facility] for Ad[facility].The GFR will not calculate i f the sex is unknown or if thepatient's ag e is <18 years. CREATININE (test 1.3 mg/dL 0.6-1.3 N code = CREAT) TOTAL PROTEIN (test 6.5 g/dL 6.4-8.2 N code = PROT) ALBUMIN (test code = 2.90 g/dL 3.4-5.0 L ALB) CALCIUM (test code = 8.3 mg/dL 8.0-10.5 N CA) BILIRUBIN TOTAL 0.20 mg/dL 0.0-1.0 N (test code = BILT) SGOT/AST (test code 16 IUnit/L 15-37 N = AST) SGPT/ALT (test code 17 IUnit/L 30-65 L = ALT) ALKALINE PHOSPHATASE 102 IUnit/L 20-125 N TOTAL (test code = ALKP) CBC W/AUTO [id number] 07:54:00 Test Item Value Reference Range Interpretation Comments WHITE BLOOD CELL (test code = 4.2 x10 3/uL 4.5-11.0 L WBC) RED BLOOD CELL (test code = 3.35 x10 6/uL 4.00-5.60 L RBC) HEMOGLOBIN (test code = HGB) 9.7 g/dL 12.5-16.9 L HEMATOCRIT (test code = HCT) 31.9 % 37.5-50.7 L MEAN CELL VOLUME (test code = 95.2 fL 81.0-99.0 N MCV) MEAN CELL HGB (test code = MCH) 29.0 pg 27.0-33.0 N MEAN CELL HGB CONCETRATION 30.4 g/dL 33.0-37.0 L (test code = MCHC) RED CELL DISTRIBUTION WIDTH CV 16.3 % 11.5-14.5 H (test code = RDW) RED CELL DISTRIBUTION WIDTH SD 53.3 fL 37.0-54.0 N (test code = RDW-SD) PLATELET COUNT (test code = 220 x10 3/uL 150-400 N PLT) MEAN PLATELET VOLUME (test code 10.6 fL 7.0-9.0 H = MPV) NEUTROPHIL % (test code = NT%) 80.9 % 56.0-77.0 H IMMATURE GRANULOCYTE % (test 1.4 % 0.0-2.0 N code = IG%) LYMPHOCYTE % (test code = LY%) 8.1 % 14.0-32.0 L MONOCYTE % (test code = MO%) 6.2 % 4.8-9.0 N EOSINOPHIL % (test code = EO%) 2.4 % 0.3-3.7 N BASOPHIL % (test code = BA%) 1.0 % 0.0-2.0 N NUCLEATED RBC % (test code = 0.0 % 0-0 N NRBC%) NEUTROPHIL # (test code = NT#) 3.40 x10 3/uL 2.0-7.6 N IMMATURE GRANULOCYTE # (test 0.06 x10 3/uL 0.00-0.03 H code = IG#) LYMPHOCYTE # (test code = LY#) 0.34 x10 3/uL 1.0-3.8 L MONOCYTE # (test code = MO#) 0.26 x10 3/uL 0.1-0.8 N EOSINOPHIL # (test code = EO#) 0.10 x10 3/uL 0.0-0.2 N BASOPHIL # (test code = BA#) 0.04 x10 3/uL 0.0-0.2 N NUCLEATED RBC # (test code = 0.00 x10 3/uL 0.0-0.1 N NRBC#) MANUAL DIFF REQUIRED (test code NO = MDIFF) GLUCOSE [id number] 07:54:00 Test Item Value Reference Range Interpretation Comments GLUCOSE BEDSIDE (test 255 MG/DL 70-110 H Perfor med by certified code = GLUBED) 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 [facility] GLUCOSE [id number] 07:24:00 Test Item Value Reference Range Interpretation Comments GLUCOSE BEDSIDE (test 178 MG/DL 70-110 H Perfor med by certified code = GLUBED) 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 [facility] LOW MOLECULAR WT [id number] 23:57:00 Test Item Value Reference Range Interpretation Comments LOW MOLECULAR WT 0.76 IU/mL 0.60-1.00 N LMWH Therap eutic HEPARIN (test code = Ranges (target anti-Xa LMWHEP) levels measured 3-5 hours after dose):Enoxapari n (Lovenox) - Twi ce daily dosin .6-1.0 IU/mL Once stefano y dosing: >1.0 IU/mLTinzaparin (lnnohep) - Onc e daily dosin.85 IU/mLDalteparin (FragMin) - Onc e daily dosin.05 I U/mL COMMENTS: DRAW LEVEL 4 HOURS AFTER GIVING LOVENOX SHOTGLUCOSE [id number] 17:43:00 Test Item Value Reference Range Interpretation Comments GLUCOSE BEDSIDE (test 214 MG/DL 70-110 H Perfor med by certified code = GLUBED) 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 [facility] GLUCOSE [id number] 12:11:00 Test Item Value Reference Range Interpretation Comments GLUCOSE BEDSIDE (test 230 MG/DL 70-110 H Perfor med by certified code = GLUBED) 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 [facility] BASIC METABOLIC [id number] 08:42:00 Test Item Value Reference Range Interpretation Comments SODIUM (test code = 140 mEq/L 134-147 N NA) POTASSIUM (test code 4.3 mEq/L 3.4-5.0 N = K) CHLORIDE (test code 110 mEq/L 100-108 H = CL) CARBON DIOXIDE (test 27 mEq/l 21-33 N code = CO2) ANION GAP (test code 7 0-20 N = GAP) GLUCOSE (test code = 205 mg/dL 70-110 H GLU) BLOOD UREA NITROGEN 30 mg/dL 7-18 H (test code = BUN) GLOMERULAR 37.0 70-80 L The Glomerular FILTRATION RATE Filtration R ate is a (test code = GFR) calculated parameterbased on serum Creatinine, pat ient age and sex. GFR va luesless than 60 mL/min/ 1.73 square meters a re indicative ofCh ronic Kidney Disease. Values less than 15 mL/min/1.73squa re meters indicate Kidney failure. The calculation forGFR is based on the CKD-EPI (2020) calculat ion. This formulais race indifferent and is the recommended for nereida for GFRby the [facility] on for Adults.The GFR will not calculate if th e sex is unknown or if thepatient's ag e is <18 years. CREATININE (test 1.9 mg/dL 0.6-1.3 H code = CREAT) CALCIUM (test code = 7.9 mg/dL 8.0-10.5 L CA) CBC W/AUTO [id number] 08:42:00 Test Item Value Reference Range Interpretation Comments WHITE BLOOD CELL (test code = 3.8 x10 3/uL 4.5-11.0 L WBC) RED BLOOD CELL (test code = 2.61 x10 6/uL 4.00-5.60 L RBC) HEMOGLOBIN (test code = HGB) 7.6 g/dL 12.5-16.9 L HEMATOCRIT (test code = HCT) 24.3 % 37.5-50.7 L MEAN CELL VOLUME (test code = 93.1 fL 81.0-99.0 N MCV) MEAN CELL HGB (test code = MCH) 29.1 pg 27.0-33.0 N MEAN CELL HGB CONCETRATION 31.3 g/dL 33.0-37.0 L (test code = MCHC) RED CELL DISTRIBUTION WIDTH CV 15.9 % 11.5-14.5 H (test code = RDW) RED CELL DISTRIBUTION WIDTH SD 51.7 fL 37.0-54.0 N (test code = RDW-SD) PLATELET COUNT (test code = 183 x10 3/uL 150-400 N PLT) MEAN PLATELET VOLUME (test code 10.1 fL 7.0-9.0 H = MPV) NEUTROPHIL % (test code = NT%) 79.8 % 56.0-77.0 H IMMATURE GRANULOCYTE % (test 1.6 % 0.0-2.0 N code = IG%) LYMPHOCYTE % (test code = LY%) 9.6 % 14.0-32.0 L MONOCYTE % (test code = MO%) 6.6 % 4.8-9.0 N EOSINOPHIL % (test code = EO%) 1.9 % 0.3-3.7 N BASOPHIL % (test code = BA%) 0.5 % 0.0-2.0 N NUCLEATED RBC % (test code = 0.0 % 0-0 N NRBC%) NEUTROPHIL # (test code = NT#) 3.00 x10 3/uL 2.0-7.6 N IMMATURE GRANULOCYTE # (test 0.06 x10 3/uL 0.00-0.03 H code = IG#) LYMPHOCYTE # (test code = LY#) 0.36 x10 3/uL 1.0-3.8 L MONOCYTE # (test code = MO#) 0.25 x10 3/uL 0.1-0.8 N EOSINOPHIL # (test code = EO#) 0.07 x10 3/uL 0.0-0.2 N BASOPHIL # (test code = BA#) 0.02 x10 3/uL 0.0-0.2 N NUCLEATED RBC # (test code = 0.00 x10 3/uL 0.0-0.1 N NRBC#) MANUAL DIFF REQUIRED (test code NO = MDIFF) GLUCOSE [id number] 08:32:00 Test Item Value Reference Range Interpretation Comments GLUCOSE BEDSIDE (test 199 MG/DL 70-110 H Perfor med by certified code = GLUBED) 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 The test resultshould be correlated into the clinical contex t forinterpretati on. PROTEIN/CREATININE 0.44 RATIO (test code = P/CRATIO) - RETROPERITONEAL [id number] 00:00:00 [facility] 1950 Sex: M Name: TEVIN VAUGHAN [facility] [place] : 1950 Age/S: 73 / M [address] [place] [address] Blvd Unit #: [id number] Loc: [place] [address] Phys: Monserrat Bobo MD Acct: [id number] Dis Date: Status: ADM IN PHONE #: [phone] Exam Date: 04/10/2023 112 FAX #: [phone] Reason: arf EXAMS: CPT CODE: [id number] US RETROPERITONEAL COM [id number] PROCEDURE INFORMATION: Exam: US Retroperitoneal; Complete; Kidneys andBladder Exam date and time: 04/10/2023 6:55 AM Age: 73 years old Clinical indication: Other: Arf TECHNIQUE: Imaging protocol: Real-time ultrasound of the retroperitoneum with image documentation. Complete exam focused on the kidneys and bladder. COMPARISON: CR XR ABDOMEN AP 1 V 03/05/2023 7:47 AM FINDINGS: Right kidney: Right kidney is normal in morphology and echogenicity without hydronephrosis or cortical thinning measuring 10.5 cm in length. Left kidney: The left kidney is normal morphology and echogenicity without hydronephrosis or cortical thinning measuring 9.6 cm length. Trace perinephric free fluid appears to be present. Aorta: Visualized portions of the abdominal aorta is normal in caliberwith portions obscured by overlying gas including the bifurcation. Inferior vena cava: The IVC demonstrates color flow. Urinary bladder: Small amount of anechoic fluid is present in the urinary bladder. IMPRESSION: Trace left perinephric free fluid. Otherwise, normal renal ultrasound. at 0809 Reported and signed by: Ranjit Del Castillo M.D. 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 [facility] TOTAL IRON BINDING [id number] 17:06:00 Test Item Value Reference Range Interpretation Comments SERUM IRON (test code = IRON) 47 mcg/dL 35-150 N TOTAL IRON BINDING CAPACITY (test 204 mcg/dL 260-445 L code = TIBC) UIBC (test code = UIBC) 157 mcg/dL IRON SATURATION (test code = 23.0 % 14-34 N FESAT) [id number] 17:06:00 Test Item Value Reference Range Interpretation Comments FERRITIN (test code = BRIAN) 255.2 ng/mL 23.9-336.2 N GLUCOSE [id number] 16:58:00 Test Item Value Reference Range Interpretation Comments GLUCOSE BEDSIDE (test 213 MG/DL 70-110 H Perfor med by certified code = GLUBED) 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 [facility] GLUCOSE [id number] 11:53:00 Test Item Value Reference Range Interpretation Comments GLUCOSE BEDSIDE (test 283 MG/DL 70-110 H Perfor med by certified code = GLUBED) 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 [facility] - XR FOOT 3 + V [id number] 11:15:00 [facility] : 1950 Sex: M FAX: Dulce Mcguire MD [place]: [facility]: [facility] FAX: Elvie Gamboa MD [phone] FAX: Reyna Bardales DPM [phone] Name: TEVIN VAUGHAN [facility] : 1950 Age/S: 73/M [address] [place] [address] Unit #: [id number] Loc: G.[address] [place] [address] Phys: Reyna Washington DPM Acct: [id number] Dis Date: Status: ADM IN PHONE #: [phone] Exam Date: 04/09/2023 1501 FAX #: [phone] Reason: ULCER LEFT UPPER FOOT EXAMS: CPT CODE: [id number] XR FOOT 3 + [place] LT [id number] EXAM: Left foot series, 3 views Dictation location: H10 INDICATION: Ulcer left upper foot COMPARISON: None. DISCUSSION: Frontal, oblique, and lateral views of the left foot are submitted. No fracture, dislocation, or lytic or blastic lesions are identified. Joint spaces are well preserved. No bony erosion is seen. Monckeberg vascular calcifications are identified. IMPRESSION: No acute bony abnormalities or evidence of osteomyelitis. at 1115 Reported and signed by: Morales Reyna M.D.CC: Dulce Mcguire MD; Elvie Gamboa MD; Reyna Washington DPM Technologist: RT Aroldo(Karuna) Trnscrd Date/Time/By: 04/10/2023 (1113) : By: [email or web address] Orig Print D/T: S: 04/10/2023 (7248) PAGE 1 Signed ReportBASIC METABOLIC [id number] 08:31:00 Test Item Value Reference Range Interpretation Comments SODIUM (test code = 142 mEq/L 134-147 N NA) POTASSIUM (test code 4.3 mEq/L 3.4-5.0 N = K) CHLORIDE (test code 108 mEq/L 100-108 N = CL) CARBON DIOXIDE (test 28 mEq/l 21-33 N code = CO2) ANION GAP (test code 10 0-20 N = GAP) GLUCOSE (test code = 178 mg/dL 70-110 H GLU) BLOOD UREA NITROGEN 42 mg/dL 7-18 H (test code = BUN) GLOMERULAR 28.0 70-80 L The Glomerular FILTRATION RATE Filtration R ate is a (test code = GFR) calculated parameterbased on serum Creatinine, pat ient age and sex. GFR va luesless than 60 mL/min/ 1.73 square meters a re indicative ofCh ronic Kidney Disease. Values less than 15 mL/min/1.73squa re meters indicate Kidney failure. The calculation forGFR is based on the CKD-EPI (2020) calculat ion. This formulais race indifferent and is the recommended for nereida for GFRby the [facility] for Adults.The GFR will not calculate if th e sex is unknown or if thepatient's ag e is <18 years. CREATININE (test 2.4 mg/dL 0.6-1.3 H code = CREAT) CALCIUM (test code = 8.6 mg/dL 8.0-10.5 N CA) CBC W/AUTO [id number] 08:30:00 Test Item Value Reference Range Interpretation Comments WHITE BLOOD CELL (test code = 4.4 x10 3/uL 4.5-11.0 L WBC) RED BLOOD CELL (test code = 2.81 x10 6/uL 4.00-5.60 L RBC) HEMOGLOBIN (test code = HGB) 8.1 g/dL 12.5-16.9 L HEMATOCRIT (test code = HCT) 26.7 % 37.5-50.7 L MEAN CELL VOLUME (test code = 95.0 fL 81.0-99.0 N MCV) MEAN CELL HGB (test code = MCH) 28.8 pg 27.0-33.0 N MEAN CELL HGB CONCETRATION 30.3 g/dL 33.0-37.0 L (test code = MCHC) RED CELL DISTRIBUTION WIDTH CV 15.8 % 11.5-14.5 H (test code = RDW) RED CELL DISTRIBUTION WIDTH SD 53.1 fL 37.0-54.0 N (test code = RDW-SD) PLATELET COUNT (test code = 212 x10 3/uL 150-400 N PLT) MEAN PLATELET VOLUME (test code 10.5 fL 7.0-9.0 H = MPV) NEUTROPHIL % (test code = NT%) 81.0 % 56.0-77.0 H IMMATURE GRANULOCYTE % (test 1.1 % 0.0-2.0 N code = IG%) LYMPHOCYTE % (test code = LY%) 8.6 % 14.0-32.0 L MONOCYTE % (test code = MO%) 7.7 % 4.8-9.0 N EOSINOPHIL % (test code = EO%) 0.7 % 0.3-3.7 N BASOPHIL % (test code = BA%) 0.9 % 0.0-2.0 N NUCLEATED RBC % (test code = 0.0 % 0-0 N NRBC%) NEUTROPHIL # (test code = NT#) 3.58 x10 3/uL 2.0-7.6 N IMMATURE GRANULOCYTE # (test 0.05 x10 3/uL 0.00-0.03 H code = IG#) LYMPHOCYTE # (test code = LY#) 0.38 x10 3/uL 1.0-3.8 L MONOCYTE # (test code = MO#) 0.34 x10 3/uL 0.1-0.8 N EOSINOPHIL # (test code = EO#) 0.03 x10 3/uL 0.0-0.2 N BASOPHIL # (test code = BA#) 0.04 x10 3/uL 0.0-0.2 N NUCLEATED RBC # (test code = 0.00 x10 3/uL 0.0-0.1 N NRBC#) MANUAL DIFF REQUIRED (test code NO = MDIFF) GLUCOSE [id number] 07:33:00 Test Item Value Reference Range Interpretation Comments GLUCOSE BEDSIDE (test 180 MG/DL 70-110 H Perfor med by certified code = GLUBED) 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 [facility] GLUCOSE [id number] 19:15:00 Test Item Value Reference Range Interpretation Comments GLUCOSE BEDSIDE (test 281 MG/DL 70-110 H Perfor med by certified code = GLUBED) 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 YesBASIC METABOLIC [id number] 08:26:00 Test Item Value Reference Range Interpretation Comments SODIUM (test code = 141 mEq/L 134-147 N NA) POTASSIUM (test code 4.5 mEq/L 3.4-5.0 N = K) CHLORIDE (test code 105 mEq/L 100-108 N = CL) CARBON DIOXIDE (test 30 mEq/l 21-33 N code = CO2) ANION GAP (test code 10 0-20 N = GAP) GLUCOSE (test code = 121 mg/dL 70-110 H GLU) BLOOD UREA NITROGEN 47 mg/dL 7-18 H (test code = BUN) GLOMERULAR 22.3 70-80 L The Glomerular FILTRATION RATE Filtration R ate is a (test code = GFR) calculated parameterbased on serum Creatinine, pat ient age and sex. GFR va luesless than 60 mL/min/ 1.73 square meters a re indicative ofCh ronic Kidney Disease. Values less than 15 mL/min/1.73squa re meters indicate Kidney failure. The calculation forGFR is based on the CKD-EPI (2020) calculat ion. This formulais race indifferent and is the recommended for nereida for GFRby the [facility] on for Adults.The GFR will not calculate if th e sex is unknown or if thepatient's ag e is <18 years. CREATININE (test 2.9 mg/dL 0.6-1.3 H code = CREAT) CALCIUM (test code = 9.1 mg/dL 8.0-10.5 N CA) CBC W/AUTO [id number] 08:17:00 Test Item Value Reference Range Interpretation Comments WHITE BLOOD CELL (test code = 4.8 x10 3/uL 4.5-11.0 N WBC) RED BLOOD CELL (test code = 2.75 x10 6/uL 4.00-5.60 L RBC) HEMOGLOBIN (test code = HGB) 8.1 g/dL 12.5-16.9 L HEMATOCRIT (test code = HCT) 25.6 % 37.5-50.7 L MEAN CELL VOLUME (test code = 93.1 fL 81.0-99.0 N MCV) MEAN CELL HGB (test code = MCH) 29.5 pg 27.0-33.0 N MEAN CELL HGB CONCETRATION 31.6 g/dL 33.0-37.0 L (test code = MCHC) RED CELL DISTRIBUTION WIDTH CV 15.8 % 11.5-14.5 H (test code = RDW) RED CELL DISTRIBUTION WIDTH SD 51.8 fL 37.0-54.0 N (test code = RDW-SD) PLATELET COUNT (test code = 238 x10 3/uL 150-400 N PLT) MEAN PLATELET VOLUME (test code 10.2 fL 7.0-9.0 H = MPV) NEUTROPHIL % (test code = NT%) 82.4 % 56.0-77.0 H IMMATURE GRANULOCYTE % (test 1.9 % 0.0-2.0 N code = IG%) LYMPHOCYTE % (test code = LY%) 7.1 % 14.0-32.0 L MONOCYTE % (test code = MO%) 6.5 % 4.8-9.0 N EOSINOPHIL % (test code = EO%) 1.5 % 0.3-3.7 N BASOPHIL % (test code = BA%) 0.6 % 0.0-2.0 N NUCLEATED RBC % (test code = 0.0 % 0-0 N NRBC%) NEUTROPHIL # (test code = NT#) 3.96 x10 3/uL 2.0-7.6 N IMMATURE GRANULOCYTE # (test 0.09 x10 3/uL 0.00-0.03 H code = IG#) LYMPHOCYTE # (test code = LY#) 0.34 x10 3/uL 1.0-3.8 L MONOCYTE # (test code = MO#) 0.31 x10 3/uL 0.1-0.8 N EOSINOPHIL # (test code = EO#) 0.07 x10 3/uL 0.0-0.2 N BASOPHIL # (test code = BA#) 0.03 x10 3/uL 0.0-0.2 N NUCLEATED RBC # (test code = 0.00 x10 3/uL 0.0-0.1 N NRBC#) MANUAL DIFF REQUIRED (test code NO = MDIFF) GLUCOSE [id number] 05:04:00 Test Item Value Reference Range Interpretation Comments GLUCOSE BEDSIDE (test 121 MG/DL 70-110 H Perfor med by certified code = GLUBED) 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 [facility] - DUP VEIN [id number] 00:00:00 [facility] 1950 Sex: M Name: TEVIN VAUGHAN [facility] : 1950 Age/S: 73 / M [address] [place] [address] Unit #: [id number] Loc: [place] [address] Phys: Daniela Mari AGACNP Acct: [id number] Dis Date: Status: ADM IN PHONE #: [phone] Exam Date: 04/09/2023 1659 FAX #: [phone] Reason: rule out DVT EXAMS: CPT CODE: [id number] DUP VEIN MERT [id number] PROCEDURE INFORMATION: Exam: US Duplex Lower Extremity Veins, Bilateral Exam date and time: 04/09/2023 4:20 PM Age: 73 years old Clinical indication: Screening exam; Rule out dvt TECHNIQUE: Imaging protocol: Real-time duplex ultrasound of the bilateral extremities with 2-D nj scale, color Doppler flow and spectral waveform analysis including responses to compression and other maneuvers (when performed) with image documentation. Complete exam focused on the lower extremity veins. COMPARISON: US DUP VEIN MERT 03/12/2023 6:29 AM FINDINGS: Right deep veins: Unremarkable. The common femoral, femoral, proximal profunda femoral and popliteal veins are patent without thrombus. Normal Doppler waveforms. Normal compressibility and/or augmentation response. Left deep veins: Unremarkable. The common femoral, femoral, proximal profunda femoral and popliteal veins are patent without thrombus. Normal Doppler waveforms. Normal compressibility and/or augmentation response.Superficial veins: Bilateral saphenofemoral junctions are patent without thrombus. Soft tissues: Unremarkable. IMPRESSION: No evidence of deep vein thrombosis. at 1755 Reported and signed by: Chilo Cabrera M.D. CC: Dulce Mcguire MD; Elvie Gamboa MD; Daniela Mari Technologist: Claudia Woods RDMS(AB) Trnscb Date/Time: 2022 (1754) [email or web address] Orig Print D/T: S: 04/09/2023 (799) Probe: PAGE 1 Signed Report- DUP LE ART [id number] 00:00:00 [facility] : 1950 Sex: M Name: TEVIN VAUGHAN [facility] : 1950 Age/S: 73 / M [address] [place] [address] Unit #: [id number] Loc: [place] [address] Phys: Daniela Mari Acct: [id number] Dis Date: Status: ADM IN PHONE #: [phone] Exam Date: 04/09/2023 1653 FAX #: [phone] Reason: rule out PAD EXAMS: CPT CODE: [id number] DUP LE ART MERT [id number] PROCEDURE INFORMATION: Exam: US Duplex Bilateral Lower Extremity Arteries Exam date and time: 04/09/2023 5:05 PM Age: 73 years old Clinical indication: Screening exam; Rule out pad TECHNIQUE: Imaging protocol: Real-time ultrasound scan of the arteries of the bilateral lower extremities with 2-D nj scale, color Doppler flow and spectral waveform analysis. Images documented and saved. COMPARISON: US DUP VEIN MERT 04/09/2023 4:20 PM FINDINGS: Right common femoralartery: No occlusion or significant stenosis. Normal waveform. The peak systolic velocity is 94 cm/sRight superficial femoral artery: No occlusion or significant stenosis. Normal waveform. Peak systolic velocity is 102 cm/s Right popliteal artery: No occlusion or significant stenosis. Peak systolic velocity is 87 cm/s with suggestion of slight flow reversal in the systolic phase on spectral Doppler waveform. The waveforms are biphasic Right calf/foot arteries: No occlusion or significant stenosis in the visualized arteries. Normal waveforms. Dorsalis pedis artery is patent. The peak systolic velocity for the posterior tibial artery is 49 cm/s and is low amplitude and monophasic, dorsalis pedis is 47 cm/s and is monophasic Left common femoral artery: No occlusion or significant stenosis. Prominent spectral broadening is demonstrated in the left common femoral artery with an elevated peak systolic velocity of 182 cm/s. Left superficial femoral artery: No occlusion or significant stenosis. . Peak systolic velocity is 76 cm/s and is monophasic with flow reversal during systole. Left popliteal artery: No occlusion or significant stenosis. Monophasic waveforms. Peak systolic velocity is 68 cm/s.Left calf/foot arteries: No occlusion or significant stenosis in the visualized arteries. Normal waveforms. Dorsalis pedis artery is patent. Peak systolic velocity for the posterior tibial artery is 46cm/s and is monophasic with slight systolic flow reversal, dorsalis pedis is 52 cm/s and is monophasic with systolic flow reversal. The right ankle brachial index is 0.88 and the left ankle-brachial ind ex could not be performed due to noncompressibility due to arterial sclerotic disease. IMPRESSION: PAGE 1 Signed Report (CONTINUED) Name: TEVIN VAUGHAN [facility] : 1950 Age/S: 73 / M [address] [place] [address] Blvd Unit #: [id number] Loc: [place] [address] Phys: Daniela Mari Acct: [id number] Dis Date: Status: ADM IN PHONE #: [phone] Exam Date: 04/09/2023 1659 FAX #: [phone] Reason: rule out PAD EXAMS: CPT CODE: [id number] DUP LE ART MERT [id number] (Continued) Suspicion of stenosis disc proximal to the right popliteal artery with abnormal spectral Doppler waveforms distally. On the left side findings are suspicious for proximal stenosis in the area of the left common femoral artery with decreased amplitude monophasic waveforms in the arterial system throughout. The findings are concerning for stenosis throughout the arterial system of the left lower extremity. Furtherassessment with a CT angiogram of the lower extremities with peripheral runoffs may be useful, if clinically indicated. at 1920 Reported and signed by: Slava Tran M.D. CC: Dulce Mcguire MD; Elvie Gamboa MD; Daniela Mari Technologist: RT Cristino(R)(CT); Claudia Woods RDMS(AB); ...Trnscb Date/Time: 04/09/2023 (1919) [email or web address] Orig Print D/T: S: 04/09/2023 (1919) Probe: PAGE 2 Signed Report- NM LUNG PERF [id number] 00:00:00 [facility] TEVIN VAUGHAN : 1950 Sex: M FAX: Dulce Mcguire MD [place]: [facility] [facility] FAX: Elvie Gamboa MD [phone] FAX: Daniela Mari [phone] Name: TEVIN VAUGHAN [facility] : 1950 Age/S: 73/M [address] [place] [address] Unit #: [id number] Loc: G.5517 [place] [address] Phys: Daniela Mari AGACNP Acct: [id number] Dis Date: Status: ADM IN PHONE #: [phone] Exam Date: 04/09/2023 1210 FAX #: [phone] Reason: R/O PE, elevated D-dimer, SOB EXAMS: CPT CODE: [id number] NM LUNG PERF PARTICULATE [id number] PROCEDURE INFORMATION: Exam: NM Lung Perfusion Exam date and time: 04/09/2023 12:29 PM Age: 73 years old Clinical indication: Other: R/O pe, elevated d-dimer, SOB TECHNIQUE: Imaging protocol: Nuclear pulmonary perfusion imaging was per formed. Views: Perfusion acquired with multiple projections. ADDITIONAL STUDY INFORMATION: Radiopharmaceutical: 5 mCi Tc-99m MAA (Macroaggregated Albumin), through the left antecubital IV. COMPARISON: DX XR CHEST 2 V 04/08/2023 2:38 PM FINDINGS: Perfusion: Decreased perfusion is seen to the upper lungs bilaterally. Moderate defect is seen to the lateral right upper lung. Mild decreased perfusion to thelateral left mid lung and left lung base and to the lateral right lung base. No other significant subsegmental or segmental defects throughout both lungs. Emphysematous changes seen on chest radiograph. IMPRESSION: 1. Intermediate likelihood ratio for pulmonary embolism. Recommend CTA chest with contrast using PE protocol for further evaluation. Normal: < 5% probability of pulmonary embolism. Lowlikelihood ratio: < 20 % probability of pulmonary embolism. Intermediate likelihood ratio: 20-80%probability of pulmonary embolism. High likelihood ratio: > 80% probability of pulmonary embolism. at 1257 Reported and signed by: Manish Son M.D. 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 [facility] BASIC METABOLIC [id number] 22:19:00 Test Item Value Reference Range Interpretation Comments SODIUM (test code = 141 mEq/L 134-147 N NA) POTASSIUM (test code 4.3 mEq/L 3.4-5.0 N = K) CHLORIDE (test code 105 mEq/L 100-108 N = CL) CARBON DIOXIDE (test 26 mEq/l 21-33 N code = CO2) ANION GAP (test code 14 0-20 N = GAP) GLUCOSE (test code = 88 mg/dL 70-110 GLU) BLOOD UREA NITROGEN 47 mg/dL 7-18 H (test code = BUN) GLOMERULAR 21.4 70-80 L The Glomerular FILTRATION RATE Filtration R ate is a (test code = GFR) calculated parameterbased on serum Creatinine, pat ient age and sex. GFR va luesless than 60 mL/min/ 1.73 square meters a re indicative ofCh ronic Kidney Disease. Values less than 15 mL/min/1.73squa re meters indicate Kidney failure. The calculation forGFR is based on the CKD-EPI (2020) calculat ion. This formulais race indifferent and is the recommended for nereida for GFRby the [facility] Kidney Foundati on for Adults.The GFR will not calculate if e sex is unknown or if thepatient's ag e is <18 years. 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 YESTHROMBOSIS A ND/OR PULMONARY EMBOL ISM AND THE CLINICAL CUT- O FF VALUE FOR EXCLUSION (500 ng/mL FEU) OF THESE CONDIT IONSIS VALIDATED BY E HOLDER PILE DRIVING OF THE METHOD. A NEGATIVE D-DI JEAN-PAUL RESULT WHEN COMBINED W ITH A CLINICALASSESSM ENT OF LOW PRETEST PROBABI LITY HAS BEEN SHOWN TO H AVEA HIGH NEGATIVE PREDIC TIVE VALUE OF DVT OR PE. D -DIMER VALUES >500 ng/ mL FEU ARE NOT DIAGNOSTIC FOR DVT, PEor DIC WITHOU T OTHER CONFIRMATORY TE STS AND APPROPRIATECLIN ICAL EUALUATIONS. [A utomated message] The sy stem which generated this result transmitted ref erence range: <=500. T he reference range was not u sed to interpret this result as normal/abnormal . UA RFLX MICR CULT IF [id number] 15:41:00 Test Item Value Reference Range Interpretation Comments UA COLOR (test code = COLU) STRAW YEL/STRAW UA APPEARANCE (test code = CLEAR CLEAR APPU) UA GLUCOSE DIPSTICK (test code NEGATIVE NEGATIVE = DGLUU) UA BILIRUBIN DIPSTICK (test NEGATIVE NEGATIVE code = BILU) UA KETONE DIPSTICK (test code NEGATIVE NEGATIVE = KETU) UA SPECIFIC GRAVITY (test code 1.006 1.005-1.030 N = SGU) UA BLOOD DIPSTICK (test code = NEGATIVE NEGATIVE KYLE) UA PH DIPSTICK (test code = 5.0 5.0-7.0 N LITA) UA PROTEIN DIPSTICK (test code NEGATIVE NEGATIVE = PROU) UA UROBILINIOGEN DIPSTICK 0.2 mg/dL 0.2-1.0 (test code = URO) UA NITRITE DIPSTICK (test code NEGATIVE NEGATIVE = SUKUMAR) UA LEUKOCYTE ESTERASE DIPSTICK NEGATIVE NEGATIVE (test code = LEUU) UA WBC (test code = WBCU) 0-3 WBC/HPF 0-3 UA RBC (test code = RBCU) 0-3 RBC/HPF 0-3 UA WBC NO REFLEX (test code = 0-3 WBC/HPF 0-3 WBCUCL) UA BACTERIA (test code = BACU) NONE SEEN /HPF NONE SEEN UA SQUAMOUS CELLS (test code = NONE SEEN /HPF NONE SEEN SQU) UA MUCUS (test code = MUCU) TRACE /LPF NONE SEEN Indication for culture: Dysuria/FrequencySpecimen Description: CLEAN CATCHB-TYPE NATRIURETIC [id number] 14:50:00 Test Item Value Reference Range Interpretation Comments B-TYPE NATRIURETIC PEPTIDE (test 396.0 PG/ML 0-100 H code = BNP) COMPREHENSIVE METABOLIC [id number] 14:44:00 Test Item Value Reference Range Interpretation Comments SODIUM (test code = 142 mEq/L 134-147 N NA) POTASSIUM (test code 4.2 mEq/L 3.4-5.0 N = K) CHLORIDE (test code 108 mEq/L 100-108 N = CL) CARBON DIOXIDE (test 26 mEq/l 21-33 N code = CO2) ANION GAP (test code 13 0-20 N = GAP) GLUCOSE (test code = 63 mg/dL 70-110 L GLU) BLOOD UREA NITROGEN 46 mg/dL 7-18 H (test code = BUN) GLOMERULAR 22.3 70-80 L The Glomerular FILTRATION RATE Filtration R ate is a (test code = GFR) calculated parameterbased on serum Creatinine, pat ient age and sex. GFR va luesless than 60 mL/min/ 1.73 square meters a re indicative ofCh ronic Kidney Disease. Values less than 15 mL/min/1.73squa re meters indicate Kidney failure. The calculation for GFR is based on the CK D-EPI (2020) calculat ion. This formulais race indifferent and is the recommended for nereida for GFRby the Natio nal Kidney Foundati on for Adults.The GFR will not calculate if th e sex is unknown or if thepatient's ag e is <18 years. CREATININE (test 2.9 mg/dL 0.6-1.3 H code = CREAT) TOTAL PROTEIN (test 6.2 g/dL 6.4-8.2 L code = PROT) ALBUMIN (test code = 2.70 g/dL 3.4-5.0 L ALB) CALCIUM (test code = 8.4 mg/dL 8.0-10.5 N CA) BILIRUBIN TOTAL 0.20 mg/dL 0.0-1.0 N (test code = BILT) SGOT/AST (test code 21 IUnit/L 15-37 N = AST) SGPT/ALT (test code 27 IUnit/L 30-65 L = ALT) ALKALINE PHOSPHATASE 89 IUnit/L 20-125 N TOTAL (test code = ALKP) TROP-I HIGH [id number] 14:44:00 Test Item Value Reference Range Interpretation Comments TROP-I HIGH 16 ng/L 0-54 N CAUTION: Units of the SENSITIVITY (test current te st methodology code = TROPIHS) (ng/L) diffe rfrom the prior test methodolog y (ng/mL) by a factor of 1000. 99th Percentile Upper Reference Limit (URL): Females: 34 ng/LMales: 54 n g/L In order to distinguish acute elevations of h igh sensitivitytrop onin from other clinical conditions, the FourthUnive rsal Definition of M yocardial Infarction stre ssesclinical assessment and the demonstration o f a rise and/orfall in s erial troponin result s above the URL. These resu lts were obtained using Siemens Atellica IM TnI Hreagent. Results from di fferent methodologies s hould not becompared to o ne another as quantitative results and URLs mayvary by method. CBC W/AUTO [id number] 14:24:00 Test Item Value Reference Range Interpretation Comments WHITE BLOOD CELL (test code = 5.7 x10 3/uL 4.5-11.0 N WBC) RED BLOOD CELL (test code = 3.12 x10 6/uL 4.00-5.60 L RBC) HEMOGLOBIN (test code = HGB) 8.9 g/dL 12.5-16.9 L HEMATOCRIT (test code = HCT) 28.2 % 37.5-50.7 L MEAN CELL VOLUME (test code = 90.4 fL 81.0-99.0 N MCV) MEAN CELL HGB (test code = MCH) 28.5 pg 27.0-33.0 N MEAN CELL HGB CONCETRATION 31.6 g/dL 33.0-37.0 L (test code = MCHC) RED CELL DISTRIBUTION WIDTH CV 15.9 % 11.5-14.5 H (test code = RDW) PLATELET COUNT (test code = 266 x10 3/uL 150-400 N PLT) NEUTROPHIL % (test code = NT%) 83.9 % 56.0-77.0 H LYMPHOCYTE % (test code = LY%) 7.5 % 14.0-32.0 L NEUTROPHIL # (test code = NT#) 4.78 x10 3/uL 2.0-7.6 N LYMPHOCYTE # (test code = LY#) 0.43 x10 3/uL 1.0-3.8 L MANUAL DIFF REQUIRED (test code NO = MDIFF) RED CELL DISTRIBUTION WIDTH SD 50.5 fL 37.0-54.0 N (test code = RDW-SD) MEAN PLATELET VOLUME (test code 10.1 fL 7.0-9.0 H = MPV) IMMATURE GRANULOCYTE % (test 1.6 % 0.0-2.0 N code = IG%) MONOCYTE % (test code = MO%) 5.6 % 4.8-9.0 N EOSINOPHIL % (test code = EO%) 0.7 % 0.3-3.7 N BASOPHIL % (test code = BA%) 0.7 % 0.0-2.0 N NUCLEATED RBC % (test code = 0.0 % 0-0 N NRBC%) IMMATURE GRANULOCYTE # (test 0.09 x10 3/uL 0.00-0.03 H code = IG#) MONOCYTE # (test code = MO#) 0.32 x10 3/uL 0.1-0.8 N EOSINOPHIL # (test code = EO#) 0.04 x10 3/uL 0.0-0.2 N BASOPHIL # (test code = BA#) 0.04 x10 3/uL 0.0-0.2 N NUCLEATED RBC # (test code = 0.00 x10 3/uL 0.0-0.1 N NRBC#) - CHEST 2 [id number] 00:00:00 [facility] : 1950 Sex: M FAX: Dulce Mcguire MD [place]: St: [facility] FAX: Paolo Arreola Name: TEVIN VAUGHAN [facility] : 1950 Age/S: 73/M [address] [place] [address] Bl Unit #: [id number] Loc: [place] [address] Phys: Tod Arreola MD Acct: [id number] Dis Date: Status: REG ER PHONE #: [phone] Exam Date: 04/08/2023 1445 FAX #: [phone] Reason: SOB, CHEST PAIN EXAMS: CPT CODE: [id number] XR CHEST 2 V [id number] PROCEDURE INFORMATION: Exam: XR Chest Exam date and time: 04/08/2023 2:38 PM Age: 73 years old Clinical indication:Shortness of breath; Additional info: SOB, chest pain TECHNIQUE: Imaging protocol: Radiologic exam of the chest. Views: 2 views. PA and Lateral COMPARISON: CR XR CHEST COMP 4 + V 03/19/2023 2:37 PM FINDINGS: Lungs: Emphysematous changes noted in the right lower lung. Prominent peribronchiolar markings are noted. No consolidation is identified. Pleural spaces: No pleural effusion. No pneumothorax. Heart/Mediastinum: Heart size is within normal limits.. Bones/joints: Median sternotomy wires are noted. IMPRESSION: Emphysematous changes noted in the right lower lung with prominent peribronchiolar markings noted. at 1534 Reported and signed by: Karen Valentin M.D. CC: Dulce Mcguire MD; Paolo Arreola MD Technologist: Mela Acevedo, RT(R) Trnscrd Date/Time/By: 04/08/2023 (1534) : By: BuckCER Orig Print D/T: S: 04/08/2023 (5388) PAGE 1 Signed Report- XR CHEST COMP [id number] 00:00:00[facility] : 1950 Sex: M FAX: Dulce Mcguire MD [place]: St: REG Name: TEVIN VAUGHAN [facility] : 1950 Age/S: 72/M [address] [place] [address] Unit #: [id number] Loc: [place] [address] Phys: Dulce Mcguire MD Acct: [id number] Dis Date: Status: REG CLI PHONE #: [phone] Exam Date: 03/19/2023 1511 FAX #: [phone] Reason: J44.9 EXAMS: CPT CODE: [id number] XR CHEST COMP 4+V 11198 PROCEDURE INFORMATION: Exam: XR Chest Exam dateand time: 03/19/2023 2:37 PM Age: 72 years old Clinical indication: Other: J44.9 TECHNIQUE: Imaging protocol: Radiologic exam of the chest. Views: 4 or more views. COMPARISON: CR XR CHEST 1V 03/12/2023 5:54 AM FINDINGS: Lungs: Emphysematous changes are seen. No consolidation. Pleural spaces: Unremarkable. No pleural effusion. No pneumothorax. Heart/Mediastinum: Unremarkable. No cardiomegaly. Bones/joints: There are multiple sternotomy wires which appear intact. IMPRESSION: 1. Bilateral emphysema. 2. No acute changes. at 1533 Reported and signed by: Lucille Mauricio M.D. 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 [facility] BASIC METABOLIC [id number] 05:21:00 Test Item Value Reference Range Interpretation Comments SODIUM (test code = 143 mEq/L 134-147 N NA) POTASSIUM (test code 4.2 mEq/L 3.4-5.0 N = K) CHLORIDE (test code 105 mEq/L 100-108 N = CL) CARBON DIOXIDE (test 33 mEq/l 21-33 N code = CO2) ANION GAP (test code 9 0-20 N = GAP) GLUCOSE (test code = 187 mg/dL 70-110 H GLU) BLOOD UREA NITROGEN 43 mg/dL 7-18 H (test code = BUN) GLOMERULAR 45.8 70-80 L The Glomerular FILTRATION RATE Filtration R ate is a (test code = GFR) calculated parameterbased on serum Creatinine, pat ient age and sex. GFR va luesless than 60 mL/min/ 1.73 square meters a re indicative ofCh ronic Kidney Disease. Values less than 15 mL/min/1.73squa re meters indicate Kidney failure. The calculation forGFR is based on the CKD-EPI (2020) calculat ion. This formulais race indifferent and is the recommended for nereida for GFRby the Natio nal Kidney Foundati on for Adults.The GFR will not calculate if th e sex is unknown or if thepatient's ag e is <18 years. CREATININE (test 1.6 mg/dL 0.6-1.3 H code = CREAT) CALCIUM (test code = 8.5 mg/dL 8.0-10.5 N CA) [id number] 05:21:00 Test Item Value Reference Range Interpretation Comments MAGNESIUM (test code = MAG) 1.81 mg/dL 1.80-2.40 N CBC W/AUTO [id number] 05:05:00 Test Item Value Reference Range Interpretation Comments WHITE BLOOD CELL (test code = 6.2 x10 3/uL 4.5-11.0 N WBC) RED BLOOD CELL (test code = 3.43 x10 6/uL 4.00-5.60 L RBC) HEMOGLOBIN (test code = HGB) 10.4 g/dL 12.5-16.9 L HEMATOCRIT (test code = HCT) 31.9 % 37.5-50.7 L MEAN CELL VOLUME (test code = 93.0 fL 81.0-99.0 N MCV) MEAN CELL HGB (test code = MCH) 30.3 pg 27.0-33.0 N MEAN CELL HGB CONCETRATION 32.6 g/dL 33.0-37.0 L (test code = MCHC) RED CELL DISTRIBUTION WIDTH CV 14.8 % 11.5-14.5 H (test code = RDW) RED CELL DISTRIBUTION WIDTH SD 50.4 fL 37.0-54.0 N (test code = RDW-SD) PLATELET COUNT (test code = 169 x10 3/uL 150-400 N PLT) MEAN PLATELET VOLUME (test code 10.6 fL 7.0-9.0 H = MPV) NEUTROPHIL % (test code = NT%) 85.4 % 56.0-77.0 H IMMATURE GRANULOCYTE % (test 1.0 % 0.0-2.0 N code = IG%) LYMPHOCYTE % (test code = LY%) 4.6 % 14.0-32.0 L MONOCYTE % (test code = MO%) 7.2 % 4.8-9.0 N EOSINOPHIL % (test code = EO%) 1.8 % 0.3-3.7 N BASOPHIL % (test code = BA%) 0.0 % 0.0-2.0 N NUCLEATED RBC % (test code = 0.0 % 0-0 N NRBC%) NEUTROPHIL # (test code = NT#) 5.33 x10 3/uL 2.0-7.6 N IMMATURE GRANULOCYTE # (test 0.06 x10 3/uL 0.00-0.03 H code = IG#) LYMPHOCYTE # (test code = LY#) 0.29 x10 3/uL 1.0-3.8 L MONOCYTE # (test code = MO#) 0.45 x10 3/uL 0.1-0.8 N EOSINOPHIL # (test code = EO#) 0.11 x10 3/uL 0.0-0.2 N BASOPHIL # (test code = BA#) 0.00 x10 3/uL 0.0-0.2 N NUCLEATED RBC # (test code = 0.00 x10 3/uL 0.0-0.1 N NRBC#) MANUAL DIFF REQUIRED (test code NO = MDIFF) GLUCOSE [id number] 19:22:00 Test Item Value Reference Range Interpretation Comments GLUCOSE BEDSIDE (test 235 MG/DL 70-110 H Perfor med by certified code = GLUBED) 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 [facility] GLUCOSE [id number] 16:47:00 Test Item Value Reference Range Interpretation Comments GLUCOSE BEDSIDE (test 186 MG/DL 70-110 H Perfor med by certified code = GLUBED) 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 [facility] GLUCOSE [id number] 12:04:00 Test Item Value Reference Range Interpretation Comments GLUCOSE BEDSIDE (test 279 MG/DL 70-110 H Perfor med by certified code = GLUBED) 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 [facility] GLUCOSE [id number] 08:19:00 Test Item Value Reference Range Interpretation Comments GLUCOSE BEDSIDE (test 204 MG/DL 70-110 H Perfor med by certified code = GLUBED) 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 [facility] BASIC METABOLIC [id number] 04:59:00 Test Item Value Reference Range Interpretation Comments SODIUM (test code = 144 mEq/L 134-147 N NA) POTASSIUM (test code 4.5 mEq/L 3.4-5.0 N = K) CHLORIDE (test code 106 mEq/L 100-108 N = CL) CARBON DIOXIDE (test 33 mEq/l 21-33 N code = CO2) ANION GAP (test code 9 0-20 N = GAP) GLUCOSE (test code = 182 mg/dL 70-110 H GLU) BLOOD UREA NITROGEN 45 mg/dL 7-18 H (test code = BUN) GLOMERULAR 45.8 70-80 L The Glomerular FILTRATION RATE Filtration R ate is a (test code = GFR) calculated parameterbased on serum Creatinine, pat ient age and sex. GFR aury braunless than 60 mL/min/ 1.73 square meters a re indicative ofCh ronic Kidney Disease. Values less than 15 mL/min/1.73squa re meters indicate Kidney failure. The calculation forGFR is based on the CKD-EPI (2020) calculat ion. This formulais race indifferent and is the recommended for nereida for GFRby the [facility] Kidney Foundati on for Adults.The GFR will not calculate if th e sex is unknown or if thepatient's ag e is <18 years. CREATININE (test 1.6 mg/dL 0.6-1.3 H code = CREAT) CALCIUM (test code = 8.3 mg/dL 8.0-10.5 N CA) [id number] 04:59:00 Test Item Value Reference Range Interpretation Comments MAGNESIUM (test code = MAG) 1.95 mg/dL 1.80-2.40 N CBC W/AUTO [id number] 04:48:00 Test Item Value Reference Range Interpretation Comments WHITE BLOOD CELL (test code = 5.8 x10 3/uL 4.5-11.0 N WBC) RED BLOOD CELL (test code = 3.59 x10 6/uL 4.00-5.60 L RBC) HEMOGLOBIN (test code = HGB) 11.2 g/dL 12.5-16.9 L HEMATOCRIT (test code = HCT) 32.9 % 37.5-50.7 L MEAN CELL VOLUME (test code = 91.6 fL 81.0-99.0 N MCV) MEAN CELL HGB (test code = MCH) 31.2 pg 27.0-33.0 N MEAN CELL HGB CONCETRATION 34.0 g/dL 33.0-37.0 N (test code = MCHC) RED CELL DISTRIBUTION WIDTH CV 14.9 % 11.5-14.5 H (test code = RDW) RED CELL DISTRIBUTION WIDTH SD 50.3 fL 37.0-54.0 N (test code = RDW-SD) PLATELET COUNT (test code = 193 x10 3/uL 150-400 N PLT) MEAN PLATELET VOLUME (test code 11.3 fL 7.0-9.0 H = MPV) NEUTROPHIL % (test code = NT%) 82.0 % 56.0-77.0 H IMMATURE GRANULOCYTE % (test 1.2 % 0.0-2.0 N code = IG%) LYMPHOCYTE % (test code = LY%) 5.8 % 14.0-32.0 L MONOCYTE % (test code = MO%) 9.3 % 4.8-9.0 H EOSINOPHIL % (test code = EO%) 1.7 % 0.3-3.7 N BASOPHIL % (test code = BA%) 0.0 % 0.0-2.0 N NUCLEATED RBC % (test code = 0.0 % 0-0 N NRBC%) NEUTROPHIL # (test code = NT#) 4.78 x10 3/uL 2.0-7.6 N IMMATURE GRANULOCYTE # (test 0.07 x10 3/uL 0.00-0.03 H code = IG#) LYMPHOCYTE # (test code = LY#) 0.34 x10 3/uL 1.0-3.8 L MONOCYTE # (test code = MO#) 0.54 x10 3/uL 0.1-0.8 N EOSINOPHIL # (test code = EO#) 0.10 x10 3/uL 0.0-0.2 N BASOPHIL # (test code = BA#) 0.00 x10 3/uL 0.0-0.2 N NUCLEATED RBC # (test code = 0.00 x10 3/uL 0.0-0.1 N NRBC#) MANUAL DIFF REQUIRED (test code NO = MDIFF) - XR SWLW FUNC W/C [id number] 00:00:00 [facility] : 1950 Sex: M FAX: Luci Wang [phone] [place]: St: ADM FAX: Evon Garcia Phy [phone] ----- Name: [facility] [place] [facility] 1950 Age/S: 72/M [address] [place] [address] Unit #: [id number] Loc: G.3343 [place] [address] Phys: Evon Andrew Physic Acct: [id number] Dis Date: Status: ADM IN PHONE #: [phone] Exam Date: 03/12/2023 1356 FAX #: [phone] Reason: PROBLEMS SWALLOWING EXAMS: CPT CODE: [id number] XR [facility] W/C V 62723 PROCEDURE INFORMATION: Exam: FL Swallowing Function with Cine or Video Exam date and time: 03/12/2023 1:16 PM Age: 72 years old Clinical indication: Dysphagia (difficultyswallowing); Additional info: Problems swallowing TECHNIQUE: Imaging protocol: Swallowing function, with cineradiography/ videoradiograph. Guided with fluoroscopy. COMPARISON: CR XR CHEST 1V 03/12/2023 5:54 AM RADIATION DOSE METRICS: Fluoroscopy time (seconds): seconds= 20 Number of fluoro spot images: images= 8 Reference air kerma (JUANCARLOS): 0.93 mGy FINDINGS: Assistants: See also separate speech pathology report. Scalp Specialist: Mild multilevel cervical spondylosis. Procedure summary: Normal swallowing with solid and liquids. No aspiration. IMPRESSION: Unremarkable swallowing study. The reader is referred to dedicated speech therapy report for details. at 1425 Reported and signed by: Erlin Brown M.D. CC: Luci Villeda MD; Kailey Veloz Physic Kamran Technologist: RT Ofe(Karuna) Trnmnstef Date/Time/By: 03/12/2023 (0808) : By: AdanL Orig Print D/T: S: 03/12/2023 (3892) PAGE 1 Signed Report- DUP VEIN [id number] 00:00:00 [facility] : 1950 Sex: M Name: TEVIN VAUGHAN [facility] : 1950 Age/S: 72 / M [address] [place] [address] Unit #: [id number] Loc: [place] [address] Phys: Evon Andrew Acct: [id number] Dis Date: Status: ADM IN PHONE #: [phone] Exam Date: 03/12/2023701 FAX #: [phone] Reason: R/O DVT EXAMS: CPT CODE: [id number] DUP VEIN MERT [id number] PROCEDURE INFORMATION: Exam: US Duplex Lower Extremity Veins, Bilateral Exam date and time: 03/12/2023 6:29 AM Age: 72 years old Clinical indication: Screening exam; S/P cabg; Additional info: R/O dvt TECHNIQUE: Imaging protocol: Real-time duplex ultrasound of the bilateral extremities with 2-D nj scale, color Doppler flow and spectral waveform analysis including responses to compression and other maneuvers (when performed) with image documentation. Complete exam focused on the lower extremity veins. COMPARISON: US DUP VEIN MERT 03/04/2023 4:44 AM FINDINGS: Right deepveins: Common femoral, superficial femoral, popliteal and posterior tibial veins are patent without t hrombus. Normal Doppler waveforms. Normal compressibility and/or augmentation response. Right superficial veins: Saphenofemoral junction is patent without thrombus. Left deep veins: Common femoral, superficial femoral, popliteal and posterior tibial veins are patent without thrombus. Normal Doppler waveforms. Normal compressibility and/or augmentation response. Left superficial veins: Saphenofemoraljunction is patent without thrombus. Soft tissues: Unremarkable. IMPRESSION: No evidence of deep venous thrombosis in either lower extremity. at 0719 Reported and signed by: You Moore M.D. CC: Luci Villeda MD; Evon Andrew Technologist: Nancy Márquez RDMS(AB)(OB) Trnscb Date/Time: 03/12/2023 (718) [email or web address] Orig Print D/T: S: 03/12/2023 (718) Probe: PAGE 1 Signed Report- XR CHEST 1 [id number] 00:00:00 [facility] : 1950 Sex: M FAX: Luci Wang [phone] [place]: St: [facility] FAX: Evon Garcia [phone] ----- Name: CLEMENTREJI TAMAYOMY [facility] : 1950 Age/S: 72/M 82 [place] [address] Blvd Unit #: [id number] Loc: G.3343 [place] [address] Phys: Evon Andrew Physic Acct: [id number] Dis Date: Status: ADM IN PHONE #: [phone] Exam Date: 03/12/2023 0640 FAX #: [phone] Reason: S/P CABG, R/O EFFUSION EXAMS: CPT CODE:[id number] XR CHEST 1 V [id number] PROCEDURE INFORMATION: Exam: XR Chest Exam date and time: 03/12/2023 5:54 AM Age: 72 years old Clinical indication: Other: S/P cabg, R/O effusion TECHNIQUE: Imaging protocol: Radiologic exam of the chest. Views: 1 view. COMPARISON: CR XR CHEST 1V 03/11/2023 5:41 AM FINDINGS: Tubes, catheters and devices: None. Lungs: Dren-bx-qswhkoev bilateral perihilar and basilar interstitial lung opacities, suggesting pulmonary edema versus infiltrates. The peripheral lungs are otherwise clear. Bilateral pulmonary opacities are most prominent within the basilar lungs. The lung opacities appear stable to improved since previous imaging. Pleural spaces: Small volume bilateral pleural effusions. Heart/Mediastinum: Cardiac silhouette appears mildly enlarged. Vasculature: Tortuous and ectatic aorta is demonstrated. Mild atherosclerotic calcification demonstrated within the aorta. Bones/joints: Sternotomy wires, hardware is demonstrated. IMPRESSION: 1. Mild enlarged cardiac silhouette. 2. Small bilateral pleural effusions. 3. Fakb-ni-dilcmotm pulmonary edema versus infiltrates. at 0733 Reported and signed by:David Espinal M.D. 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 [facility] GLUCOSE [id number] 15:02:00 Test Item Value Reference Range Interpretation Comments GLUCOSE BEDSIDE (test 206 MG/DL 70-110 H Perfor med by certified code = GLUBED) 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 [facility] GLUCOSE [id number] 11:44:00 Test Item Value Reference Range Interpretation Comments GLUCOSE BEDSIDE (test 196 MG/DL 70-110 H Perfor med by certified code = GLUBED) 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 [facility] CBC W/AUTO [id number] 04:54:00 Test Item Value Reference Range Interpretation Comments WHITE BLOOD CELL (test code = 7.6 x10 3/uL 4.5-11.0 WBC) RED BLOOD CELL (test code = 3.80 x10 6/uL 4.00-5.60 L RBC) HEMOGLOBIN (test code = HGB) 11.4 g/dL 12.5-16.9 L HEMATOCRIT (test code = HCT) 35.8 % 37.5-50.7 L MEAN CELL VOLUME (test code = 94.2 fL 81.0-99.0 MCV) MEAN CELL HGB (test code = MCH) 30.0 pg 27.0-33.0 N MEAN CELL HGB CONCETRATION 31.8 g/dL 33.0-37.0 L (test code = MCHC) RED CELL DISTRIBUTION WIDTH CV 15.4 % 11.5-14.5 H (test code = RDW) RED CELL DISTRIBUTION WIDTH SD 53.1 fL 37.0-54.0 N (test code = RDW-SD) PLATELET COUNT (test code = 169 x10 3/uL 150-400 N PLT) MEAN PLATELET VOLUME (test code 10.9 fL 7.0-9.0 H = MPV) NEUTROPHIL % (test code = NT%) 82.5 % 56.0-77.0 H IMMATURE GRANULOCYTE % (test 1.7 % 0.0-2.0 N code = IG%) LYMPHOCYTE % (test code = LY%) 5.5 % 14.0-32.0 L MONOCYTE % (test code = MO%) 9.6 % 4.8-9.0 H EOSINOPHIL % (test code = EO%) 0.3 % 0.3-3.7 N BASOPHIL % (test code = BA%) 0.4 % 0.0-2.0 N NUCLEATED RBC % (test code = 0.0 % 0-0 N NRBC%) NEUTROPHIL # (test code = NT#) 6.31 x10 3/uL 2.0-7.6 N IMMATURE GRANULOCYTE # (test 0.13 x10 3/uL 0.00-0.03 H code = IG#) LYMPHOCYTE # (test code = LY#) 0.42 x10 3/uL 1.0-3.8 L MONOCYTE # (test code = MO#) 0.73 x10 3/uL 0.1-0.8 N EOSINOPHIL # (test code = EO#) 0.02 x10 3/uL 0.0-0.2 N BASOPHIL # (test code = BA#) 0.03 x10 3/uL 0.0-0.2 N NUCLEATED RBC # (test code = 0.00 x10 3/uL 0.0-0.1 N NRBC#) MANUAL DIFF REQUIRED (test code NO = MDIFF) BASIC METABOLIC [id number] 04:47:00 Test Item Value Reference Range Interpretation Comments SODIUM (test code = 140 mEq/L 134-147 N NA) POTASSIUM (test code 4.0 mEq/L 3.4-5.0 N = K) CHLORIDE (test code 105 mEq/L 100-108 N = CL) CARBON DIOXIDE (test 28 mEq/l 21-33 N code = CO2) ANION GAP (test code 11 0-20 N = GAP) GLUCOSE (test code = 204 mg/dL 70-110 H GLU) BLOOD UREA NITROGEN 34 mg/dL 7-18 H (test code = BUN) GLOMERULAR 45.8 70-80 L The Glomerular FILTRATION RATE Filtration R ate is a (test code = GFR) calculated parameterbased on serum Creatinine, pat ient age and sex. GFR va luesless than 60 mL/min/ 1.73 square meters a re indicative ofCh ronic Kidney Disease. Values less than 15 mL/min/1.73squa re meters indicate Kidney failure. The calculation forGFR is based on the CKD-EPI (2020) calculat ion. This formulais race indifferent and is the recommended for nereida for GFRby the [facility] on for Adults.The GFR will not calculate if th e sex is unknown or if thepatient's ag e is <18 years. CREATININE (test 1.6 mg/dL 0.6-1.3 H code = CREAT) CALCIUM (test code = 8.7 mg/dL 8.0-10.5 N CA) [id number] 04:47:00 Test Item Value Reference Range Interpretation Comments MAGNESIUM (test code = MAG) 2.13 mg/dL 1.80-2.40 - XR CHEST 1 [id number] 00:00:00 [facility] : 1950 Sex: M FAX: Luci Wang [phone] [place]: St: ADM FAX: Evon Garcia y [phone] ----- Name: TEVIN VAUGHAN [facility] : 1950 Age/S: 72/M [address] [place] [address] Unit #: [id number] Loc: G.3343 [place] [address] Phys: Evon Andrew [facility] Acct: [id number] Dis Date: Status: ADM IN PHONE #: [phone] Exam Date: 03/11/2023 0650 FAX #: [phone] Reason: S/P CABG, R/O EFFUSION EXAMS: CPT CODE:[id number] XR CHEST 1 V [id number] PROCEDURE INFORMATION: Exam: XR Chest Exam date and time: 03/11/2023 5:41AM Age: 72 years old Clinical indication: Other: S/P cabg, R/O effusion TECHNIQUE: Imaging protocol:Radiologic exam of the chest. Views: 1 view. COMPARISON: CR XR CHEST 1V 03/10/2023 5:13 AM FINDINGS: Tubes, catheters and devices: None. Lungs: Moderate degree bilateral perihilar and basilar interstitial alveolar pulmonary edema versus infiltrates, pneumonia within the lungs. The pulmonary opacities are most prominent within the lower right lung. Progression of bilateral lower lung opacities is demonstrated. Pleural spaces: Small volume bilateral pleural effusions. No pneumothorax identified. Heart/Mediastinum: Cardiac silhouette appears mildly enlarged. Vasculature: Mild atherosclerotic calcification demonstrated within the aorta. Bones/joints: Sternotomy wires, hardware is demonstrated. Mild generalized bony degenerative changes. Bony structures appear otherwise unremarkable. IMPRESSION: 1. Moderate pulmonary edema versus infiltrates, pneumonia. 2. Small bilateral pleural effusions. 3. Mild enlarged cardiac silhouette. at 0730 Reported and signed by: David Espinal M.D. 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 [facility] GLUCOSE [id number] 08:42:00 Test Item Value Reference Range Interpretation Comments GLUCOSE BEDSIDE (test 198 MG/DL 70-110 H [facility] by certified code = GLUBED) 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 [facility] BASIC METABOLIC [id number] 03:47:00 Test Item Value Reference Range Interpretation Comments SODIUM (test code = 143 mEq/L 134-147 N NA) POTASSIUM (test code 4.1 mEq/L 3.4-5.0 N = K) CHLORIDE (test code 109 mEq/L 100-108 H = CL) CARBON DIOXIDE (test 30 mEq/l 21-33 N code = CO2) ANION GAP (test code 8 0-20 N = GAP) GLUCOSE (test code = 174 mg/dL 70-110 H GLU) BLOOD UREA NITROGEN 55 mg/dL 7-18 H (test code = BUN) GLOMERULAR 49.5 70-80 L The Glomerular FILTRATION RATE Filtration R ate is a (test code = GFR) calculated parameterbased on serum Creatinine, pat ient age and sex. GFR va luesless than 60 mL/min/ 1.73 square meters a re indicative ofCh ronic Kidney Disease. Values less than 15 mL/min/1.73squa re meters indicate Kidney failure. The calculation forGFR is based on the CKD-EPI (2020) calculat ion. This formulais race indifferent and is the recommended for nereida for GFRby the [facility] Kidney Foundati on for Adults.The GFR will not calculate if th e sex is unknown or if thepatient's ag e is <18 years. CREATININE (test 1.5 mg/dL 0.6-1.3 H code = CREAT) CALCIUM (test code = 8.2 mg/dL 8.0-10.5 N CA) [id number] 03:47:00 Test Item Value Reference Range Interpretation Comments MAGNESIUM (test code = MAG) 2.52 mg/dL 1.80-2.40 H CALCIUM [id number] 03:47:00 Test Item Value Reference Range Interpretation Comments CALCIUM IONIZED (test code = BIBIANA) 1.09 MMOL/L 1.09-1.30 N CBC W/AUTO [id number] 03:31:00 Test Item Value Reference Range Interpretation Comments WHITE BLOOD CELL (test code = 5.3 x10 3/uL 4.5-11.0 N WBC) RED BLOOD CELL (test code = 3.59 x10 6/uL 4.00-5.60 L RBC) HEMOGLOBIN (test code = HGB) 10.6 g/dL 12.5-16.9 L HEMATOCRIT (test code = HCT) 32.4 % 37.5-50.7 L MEAN CELL VOLUME (test code = 90.3 fL 81.0-99.0 N MCV) MEAN CELL HGB (test code = MCH) 29.5 pg 27.0-33.0 N MEAN CELL HGB CONCETRATION 32.7 g/dL 33.0-37.0 L (test code = MCHC) RED CELL DISTRIBUTION WIDTH CV 15.2 % 11.5-14.5 H (test code = RDW) RED CELL DISTRIBUTION WIDTH SD 50.2 fL 37.0-54.0 N (test code = RDW-SD) PLATELET COUNT (test code = 135 x10 3/uL 150-400 L PLT) MEAN PLATELET VOLUME (test code 11.3 fL 7.0-9.0 H = MPV) NEUTROPHIL % (test code = NT%) 82.4 % 56.0-77.0 H IMMATURE GRANULOCYTE % (test 1.0 % 0.0-2.0 N code = IG%) LYMPHOCYTE % (test code = LY%) 6.5 % 14.0-32.0 L MONOCYTE % (test code = MO%) 9.5 % 4.8-9.0 H EOSINOPHIL % (test code = EO%) 0.4 % 0.3-3.7 N BASOPHIL % (test code = BA%) 0.2 % 0.0-2.0 N NUCLEATED RBC % (test code = 0.0 % 0-0 N NRBC%) NEUTROPHIL # (test code = NT#) 4.33 x10 3/uL 2.0-7.6 N IMMATURE GRANULOCYTE # (test 0.05 x10 3/uL 0.00-0.03 H code = IG#) LYMPHOCYTE # (test code = LY#) 0.34 x10 3/uL 1.0-3.8 L MONOCYTE # (test code = MO#) 0.50 x10 3/uL 0.1-0.8 N EOSINOPHIL # (test code = EO#) 0.02 x10 3/uL 0.0-0.2 N BASOPHIL # (test code = BA#) 0.01 x10 3/uL 0.0-0.2 N NUCLEATED RBC # (test code = 0.00 x10 3/uL 0.0-0.1 N NRBC#) MANUAL DIFF REQUIRED (test code NO = MDIFF) POC ARTERIAL BLOOD [id number] 03:20:00 Test Item Value Reference Range Interpretation Comments POC ARTERIAL BLOOD GAS PH (test 7.438 7.35-7.45 N code = POCPHA) POC ARTERIAL BLOOD GAS PCO2 (test 39.5 mmHg 35.0-45 N code = ORIFGH0L) POC TCO2 ARTERIAL (test code = 28.2 POCTCO2) POC ARTERIAL BLOOD GAS PO2 (test 93.2 mmHg 80-100.0 N code = [id number]) POC HCO3 ARTERIAL (test code = 26.9 MMOL/L 22.0-26.0 H [id number]) POC BASE EXCESS (test code = 2.5 MMOL/L -4.0-4.0 N POCBEA) POC O2 SATURATION (test code = 97.7 % 90-100 N POCO2S) ABG DELIVERY (test code = RACIEL) HFNC ABG TEMPERATURE (test code = 97.2 F TEMPA) ABG SITE (test code = SITEA) Art Line SHAYLA'S TEST (test code = ALLENS) Positive BASIC METABOLIC [id number] 03:20:00 Test Item Value Reference Range Interpretation Comments SODIUM (test code = NA/ABG) 147 mmol/L 134-147 N POTASSIUM (test code = K/ABG) 4.0 mmol/L 3.4-5.0 N CHLORIDE (test code = CL/ABG) 110 mmol/L 100-108 H CREATININE ABG (test code = 1.4 mg/dL 0.8-1.3 H CREAABG) POC IONIZED CALCIUM (test code = 1.16 MMOL/L 1.12-1.32 N POCCA) POC GLUCOSE (test code = POCGLU) 147 MG/DL 70-110 H HEMOGLOBIN [id number] 03:20:00 Test Item Value Reference Range Interpretation Comments HEMOGLOBIN ABG (test code = 11.0 G/DL 12.5-16.9 L HGB/ABG) [id number] 03:20:00 Test Item Value Reference Range Interpretation Comments HEMATOCRIT (test code = HCT/ABG) 32 % 37.5-50.7 L POC LACTIC [id number] 03:20:00 Test Item Value Reference Range Interpretation Comments POC LACTIC ACID (test code = 0.4 mmol/l 0.9-1.7 L POCLAC) - XR CHEST 1 [id number] 00:00:00 [facility] : 1950 Sex: M FAX: Luci Wang [phone] [place]: St: ADM FAX: Evon Garcia [facility] [phone] ----- Name: CLEMENTREJI TAMAYOMY [facility] : 1950 Age/S: 72/M [address] [place] [address] Unit #: [id number] Loc: G.[address] [place] [address] Phys: Evon Andrew Physic Acct: [id number] Dis Date: Status: ADM IN PHONE #: [phone] Exam Date: 03/10/2023513 FAX #: [phone] Reason: Cardiac Surgery Post Op EXAMS: CPT CODE: [id number] XR CHEST 1 V [id number] PROCEDURE INFORMATION: Exam: XR Chest Exam date and time: 03/10/2023 5:13 AM Age: 72 years old Clinical indication: Other: Cardiac surgery post op TECHNIQUE: Imaging protocol: Radiologic exam of the chest. Views: 1 view. COMPARISON: CR XR CHEST 1V 03/09/2023 6:24 AM FINDINGS: Tubes, catheters and devices: None. Lungs: Moderate degree bilateral perihilar and basilar interstitial alveolar pulmonary edema versus infiltrates, pneumonia within the lungs. The pulmonary opacities are most prominent within the lower right lung. Progression of bilateral lower lung opacities is demonstrated. Pleural spaces: Small to moderate volume bilateral pleural effusions. Pleural effusion appears larger on the right side. Heart/Mediastinum: Cardiac silhouette appears vjiy-vg-zrohamsatc enlarged. Vasculature: Mild atherosclerotic calcification demonstrated within the aorta. Bones/joints: Sternotomy wires, hardware is demonstrated. Mild generalized bony degenerative changes. Soft tissues: Right neck sheath tip is positioned over the upper chest region. This study is limited by patient's body habitus. IMPRESSION: 1. Small to moderate bilateral pleural effusions. 2. Moderate pulmonary edema versus infiltrates, pneumonia. 3. Puwd-zw-kevsykasam enlarged cardiac silhouette. ElectronicallySigned by Clarissa Espinal on 03/10/2023 at 0734 Reported and signed by: David Espinal M.D. 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 [facility] BASIC METABOLIC [id number] 16:06:00 Test Item Value Reference Range Interpretation Comments SODIUM (test code = 142 mEq/L 134-147 N NA) POTASSIUM (test code 4.4 mEq/L 3.4-5.0 N = K) CHLORIDE (test code 109 mEq/L 100-108 H = CL) CARBON DIOXIDE (test 27 mEq/l 21-33 N code = CO2) ANION GAP (test code 10 0-20 N = GAP) GLUCOSE (test code = 228 mg/dL 70-110 H GLU) BLOOD UREA NITROGEN 61 mg/dL 7-18 H (test code = BUN) GLOMERULAR 39.7 70-80 L The Glomerular FILTRATION RATE Filtration R ate is a (test code = GFR) calculated parameterbased on serum Creatinine, pat ient age and sex. GFR va luesless than 60 mL/min/ 1.73 square meters a re indicative ofCh ronic Kidney Disease. Values less than 15 mL/min/1.73squa re meters indicate Kidney failure. The calculation forGFR is based on the CKD-EPI (2020) calculat ion. This formulais race indifferent and is the recommended for nereida for GFRby the [facility] on for Adults.The GFR will not calculate if th e sex is unknown or if thepatient's ag e is <18 years. 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 [facility] BASIC METABOLIC [id number] 02:38:00 Test Item Value Reference Range Interpretation Comments SODIUM (test code = 144 mEq/L 134-147 N NA) POTASSIUM (test code 3.9 mEq/L 3.4-5.0 N = K) CHLORIDE (test code 108 mEq/L 100-108 N = CL) CARBON DIOXIDE (test 30 mEq/l 21-33 N code = CO2) ANION GAP (test code 10 0-20 N = GAP) GLUCOSE (test code = 224 mg/dL 70-110 H GLU) BLOOD UREA NITROGEN 67 mg/dL 7-18 H (test code = BUN) GLOMERULAR 37.3 70-80 L The Glomerular FILTRATION RATE Filtration R ate is a (test code = GFR) calculated parameterbased on serum Creatinine, pat ient age and sex. GFR va luesless than 60 mL/min/ 1.73 square meters a re indicative ofCh ronic Kidney Disease. Values less than 15 mL/min/1.73squa re meters indicate Kidney failure. The calculation forGFR is based on the CKD-EPI (2020) calculat ion. This formulais race indifferent and is the recommended for nereida for GFRby the [facility] Kidney Foundati on for Adults.The GFR will not calculate if th e sex is unknown or if thepatient's ag e is <18 years. CREATININE (test 1.9 mg/dL 0.6-1.3 H code = CREAT) CALCIUM (test code = 8.6 mg/dL 8.0-10.5 N CA) [id number] 02:38:00 Test Item Value Reference Range Interpretation Comments MAGNESIUM (test code = MAG) 2.70 mg/dL 1.80-2.40 H CBC W/AUTO [id number] 02:35:00 Test Item Value Reference Range Interpretation Comments WHITE BLOOD CELL (test code = 5.6 x10 3/uL 4.5-11.0 N WBC) RED BLOOD CELL (test code = 3.50 x10 6/uL 4.00-5.60 L RBC) HEMOGLOBIN (test code = HGB) 10.5 g/dL 12.5-16.9 L HEMATOCRIT (test code = HCT) 31.8 % 37.5-50.7 L MEAN CELL VOLUME (test code = 90.9 fL 81.0-99.0 N MCV) MEAN CELL HGB (test code = MCH) 30.0 pg 27.0-33.0 N MEAN CELL HGB CONCETRATION 33.0 g/dL 33.0-37.0 N (test code = MCHC) RED CELL DISTRIBUTION WIDTH CV 15.7 % 11.5-14.5 H (test code = RDW) RED CELL DISTRIBUTION WIDTH SD 52.2 fL 37.0-54.0 N (test code = RDW-SD) PLATELET COUNT (test code = 119 x10 3/uL 150-400 L PLT) MEAN PLATELET VOLUME (test code 11.3 fL 7.0-9.0 H = MPV) NEUTROPHIL % (test code = NT%) 85.6 % 56.0-77.0 H IMMATURE GRANULOCYTE % (test 0.7 % 0.0-2.0 N code = IG%) LYMPHOCYTE % (test code = LY%) 4.6 % 14.0-32.0 L MONOCYTE % (test code = MO%) 9.1 % 4.8-9.0 H EOSINOPHIL % (test code = EO%) 0.0 % 0.3-3.7 L BASOPHIL % (test code = BA%) 0.0 % 0.0-2.0 N NUCLEATED RBC % (test code = 0.0 % 0-0 N NRBC%) NEUTROPHIL # (test code = NT#) 4.81 x10 3/uL 2.0-7.6 N IMMATURE GRANULOCYTE # (test 0.04 x10 3/uL 0.00-0.03 H code = IG#) LYMPHOCYTE # (test code = LY#) 0.26 x10 3/uL 1.0-3.8 L MONOCYTE # (test code = MO#) 0.51 x10 3/uL 0.1-0.8 N EOSINOPHIL # (test code = EO#) 0.00 x10 3/uL 0.0-0.2 N BASOPHIL # (test code = BA#) 0.00 x10 3/uL 0.0-0.2 N NUCLEATED RBC # (test code = 0.00 x10 3/uL 0.0-0.1 N NRBC#) MANUAL DIFF REQUIRED (test code NO = MDIFF) POC ARTERIAL BLOOD [id number] 02:05:00 Test Item Value Reference Range Interpretation Comments POC ARTERIAL BLOOD GAS PH (test 7.455 7.35-7.45 H code = POCPHA) POC ARTERIAL BLOOD GAS PCO2 (test 39.2 mmHg 35.0-45 N code = DGRICI3O) POC TCO2 ARTERIAL (test code = 28.8 POCTCO2) POC ARTERIAL BLOOD GAS PO2 (test 81.3 mmHg 80-100.0 N code = KPSBT2M) POC HCO3 ARTERIAL (test code = 27.6 MMOL/L 22.0-26.0 H SCIQKJ0P) POC BASE EXCESS (test code = 3.7 MMOL/L -4.0-4.0 N POCBEA) POC O2 SATURATION (test code = 96.6 % 90-100 N POCO2S) ABG DELIVERY (test code = RACIEL) HFNC ABG TEMPERATURE (test code = 98.3 F TEMPA) ABG SITE (test code = SITEA) Art Line SHAYLA'S TEST (test code = ALLENS) N/A BASIC METABOLIC [id number] 02:05:00 Test Item Value Reference Range Interpretation Comments SODIUM (test code = NA/ABG) 143 mmol/L 134-147 N POTASSIUM (test code = K/ABG) 3.9 mmol/L 3.4-5.0 N CHLORIDE (test code = CL/ABG) 106 mmol/L 100-108 N CREATININE ABG (test code = 1.9 mg/dL 0.8-1.3 H CREAABG) POC IONIZED CALCIUM (test code = 1.17 MMOL/L 1.12-1.32 N POCCA) POC GLUCOSE (test code = POCGLU) 212 MG/DL 70-110 H HEMOGLOBIN [id number] 02:05:00 Test Item Value Reference Range Interpretation Comments HEMOGLOBIN ABG (test code = 11.1 G/DL 12.5-16.9 L HGB/ABG) [id number] 02:05:00 Test Item Value Reference Range Interpretation Comments HEMATOCRIT (test code = HCT/ABG) 33 % 37.5-50.7 L POC LACTIC [id number] 02:05:00 Test Item Value Reference Range Interpretation Comments POC LACTIC ACID (test code = 0.6 mmol/l 0.9-1.7 L POCLAC) GLUCOSE [id number] 01:25:00 Test Item Value Reference Range Interpretation Comments GLUCOSE BEDSIDE (test 244 MG/DL 70-110 H Perfor med by certified code = GLUBED) 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 [facility] GLUCOSE [id number] 00:45:00 Test Item Value Reference Range Interpretation Comments GLUCOSE BEDSIDE (test 252 MG/DL 70-110 H Perfor med by certified code = GLUBED) 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 [facility] - XR CHEST 1 [id number] 00:00:00 [facility] : 1950 Sex: M FAX: Luci Wang [phone] [place]: St: ADM FAX: Evon Garcia [facility] [phone] ----- Name: TEVIN VAUGHAN [facility] : 1950 Age/S: 72/M [address] [place] [address] Unit #: [id number] Loc: G.[address] [place] [address] Phys: Evon Andrew Physic Acct: [id number] Dis Date: Status: ADM IN PHONE #: [phone] Exam Date: 03/09/2023 0802 FAX #: [phone] Reason: Cardiac Surgery Post Op EXAMS: CPT CODE:[id number] XR CHEST 1 V [id number] PROCEDURE INFORMATION: Exam: XR Chest Exam date and time: 03/09/2023 6:24AM Age: 72 years old Clinical indication: Other: Cardiac surgery post op TECHNIQUE: Imaging protocol: Radiologic exam of the chest. Views: 1 view. COMPARISON: CR XR CHEST 1V 03/08/2023 6:12 AM FINDINGS: T ubes, catheters and devices: Vascular sheath in the right side of the neck with tip projecting over upper aspect of the SVC. Lungs: Bilateral lung opacities have not significantly changed. Pleural spaces: No pneumothorax. Likely right pleural effusion. Heart/Mediastinum: The heart size is stable. 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 Bones/joints: Stable. IMPRESSION: No significant change in the lungs. at 0817 Reported and signed by: Ezekiel Esteves M.D. 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 [facility] GLUCOSE [id number] 19:45:00 Test Item Value Reference Range Interpretation Comments GLUCOSE BEDSIDE (test 234 MG/DL 70-110 H Perfor med by certified code = GLUBED) 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 [facility] BASIC METABOLIC [id number] 18:44:00 Test Item Value Reference Range Interpretation Comments SODIUM (test code = 143 mEq/L 134-147 N NA) POTASSIUM (test code 4.2 mEq/L 3.4-5.0 N = K) CHLORIDE (test code 109 mEq/L 100-108 H = CL) CARBON DIOXIDE (test 29 mEq/l 21-33 N code = CO2) ANION GAP (test code 9 0-20 N = GAP) GLUCOSE (test code = 243 mg/dL 70-110 H GLU) BLOOD UREA NITROGEN 67 mg/dL 7-18 H (test code = BUN) GLOMERULAR 35.0 70-80 L The Glomerular FILTRATION RATE Filtration R ate is a (test code = GFR) calculated parameterbased on serum Creatinine, pat ient age and sex. GFR va luesless than 60 mL/min/ 1.73 square meters a re indicative ofCh ronic Kidney Disease. Values less than 15 mL/min/1.73squa re meters indicate Kidney failure. The calculation forGFR is based on the CKD-EPI (2020) calculat ion. This formulais race indifferent and is the recommended for nereida for GFRby the [facility] on for Adults.The GFR will not calculate if th e sex is unknown or if thepatient's ag e is <18 years. 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 [facility] GLUCOSE [id number] 08:16:00 Test Item Value Reference Range Interpretation Comments GLUCOSE BEDSIDE (test 136 MG/DL 70-110 H Perfor med by certified code = GLUBED) 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 [facility] GLUCOSE [id number] 06:37:00 Test Item Value Reference Range Interpretation Comments GLUCOSE BEDSIDE (test 132 MG/DL 70-110 H Perfor med by certified code = GLUBED) 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 [facility] BASIC METABOLIC [id number] 02:36:00 Test Item Value Reference Range Interpretation Comments SODIUM (test code = 144 mEq/L 134-147 N NA) POTASSIUM (test code 3.9 mEq/L 3.4-5.0 N = K) CHLORIDE (test code 110 mEq/L 100-108 H = CL) CARBON DIOXIDE (test 31 mEq/l 21-33 N code = CO2) ANION GAP (test code 7 0-20 N = GAP) GLUCOSE (test code = 140 mg/dL 70-110 H GLU) BLOOD UREA NITROGEN 74 mg/dL 7-18 H (test code = BUN) GLOMERULAR 26.8 70-80 L The Glomerular FILTRATION RATE Filtration R ate is a (test code = GFR) calculated parameterbased on serum Creatinine, pat ient age and sex. GFR va luesless than 60 mL/min/ 1.73 square meters a re indicative ofCh ronic Kidney Disease. Values less than 15 mL/min/1.73squa re meters indicate Kidney failure. The calculation forGFR is based on the CKD-EPI (2020) calculat ion. This formulais race indifferent and is the recommended for nereida for GFRby the [facility] on for Adults.The GFR will not calculate if th e sex is unknown or if thepatient's ag e is <18 years. CREATININE (test 2.5 mg/dL 0.6-1.3 H code = CREAT) CALCIUM (test code = 7.9 mg/dL 8.0-10.5 L CA) [id number] 02:36:00 Test Item Value Reference Range Interpretation Comments MAGNESIUM (test code = MAG) 2.83 mg/dL 1.80-2.40 H CBC W/AUTO [id number] 02:24:00 Test Item Value Reference Range Interpretation Comments WHITE BLOOD CELL (test code = 6.2 x10 3/uL 4.5-11.0 N WBC) RED BLOOD CELL (test code = 3.14 x10 6/uL 4.00-5.60 L RBC) HEMOGLOBIN (test code = HGB) 9.4 g/dL 12.5-16.9 L HEMATOCRIT (test code = HCT) 29.0 % 37.5-50.7 L MEAN CELL VOLUME (test code = 92.4 fL 81.0-99.0 N MCV) MEAN CELL HGB (test code = MCH) 29.9 pg 27.0-33.0 N MEAN CELL HGB CONCETRATION 32.4 g/dL 33.0-37.0 L (test code = MCHC) RED CELL DISTRIBUTION WIDTH CV 16.5 % 11.5-14.5 H (test code = RDW) RED CELL DISTRIBUTION WIDTH SD 56.0 fL 37.0-54.0 H (test code = RDW-SD) PLATELET COUNT (test code = 100 x10 3/uL 150-400 L PLT) MEAN PLATELET VOLUME (test code 11.1 fL 7.0-9.0 H = MPV) NEUTROPHIL % (test code = NT%) 87.0 % 56.0-77.0 H IMMATURE GRANULOCYTE % (test 0.3 % 0.0-2.0 N code = IG%) LYMPHOCYTE % (test code = LY%) 3.9 % 14.0-32.0 L MONOCYTE % (test code = MO%) 8.6 % 4.8-9.0 N EOSINOPHIL % (test code = EO%) 0.0 % 0.3-3.7 L BASOPHIL % (test code = BA%) 0.2 % 0.0-2.0 N NUCLEATED RBC % (test code = 0.0 % 0-0 N NRBC%) NEUTROPHIL # (test code = NT#) 5.39 x10 3/uL 2.0-7.6 N IMMATURE GRANULOCYTE # (test 0.02 x10 3/uL 0.00-0.03 N code = IG#) LYMPHOCYTE # (test code = LY#) 0.24 x10 3/uL 1.0-3.8 L MONOCYTE # (test code = MO#) 0.53 x10 3/uL 0.1-0.8 N EOSINOPHIL # (test code = EO#) 0.00 x10 3/uL 0.0-0.2 N BASOPHIL # (test code = BA#) 0.01 x10 3/uL 0.0-0.2 N NUCLEATED RBC # (test code = 0.00 x10 3/uL 0.0-0.1 N NRBC#) MANUAL DIFF REQUIRED (test code NO = MDIFF) GLUCOSE [id number] 02:23:00 Test Item Value Reference Range Interpretation Comments GLUCOSE BEDSIDE (test 121 MG/DL 70-110 H Perfor med by certified code = GLUBED) 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 [facility] POC ARTERIAL BLOOD [id number] 02:22:00 Test Item Value Reference Range Interpretation Comments POC ARTERIAL BLOOD GAS PH (test 7.352 7.35-7.45 N code = POCPHA) POC ARTERIAL BLOOD GAS PCO2 (test 52.2 mmHg 35.0-45 HH code = [id number]) POC TCO2 ARTERIAL (test code = 30.7 POCTCO2) POC ARTERIAL BLOOD GAS PO2 (test 156.1 mmHg 80-100.0 H code = DMKXY4A) POC HCO3 ARTERIAL (test code = 29.0 MMOL/L 22.0-26.0 HH [id number]) POC BASE EXCESS (test code = 3.4 MMOL/L -4.0-4.0 N POCBEA) POC O2 SATURATION (test code = 99.3 % 90-100 N POCO2S) ABG DELIVERY (test code = RACIEL) HFNC ABG TEMPERATURE (test code = 98.2 F TEMPA) ABG SITE (test code = SITEA) Art Line SHAYLA'S TEST (test code = ALLENS) N/A BASIC METABOLIC [id number] 02:22:00 Test Item Value Reference Range Interpretation Comments SODIUM (test code = NA/ABG) 145 mmol/L 134-147 N POTASSIUM (test code = K/ABG) 3.9 mmol/L 3.4-5.0 N CHLORIDE (test code = CL/ABG) 107 mmol/L 100-108 N CREATININE ABG (test code = 2.4 mg/dL 0.8-1.3 H CREAABG) POC IONIZED CALCIUM (test code = 1.22 MMOL/L 1.12-1.32 N POCCA) POC GLUCOSE (test code = POCGLU) 102 MG/DL 70-110 N HEMOGLOBIN [id number] 02:22:00 Test Item Value Reference Range Interpretation Comments HEMOGLOBIN ABG (test code = HGB/ABG) 9.5 G/DL 12.5-16.9 L [id number] 02:22:00 Test Item Value Reference Range Interpretation Comments HEMATOCRIT (test code = HCT/ABG) 28 % 37.5-50.7 L POC LACTIC [id number] 02:22:00 Test Item Value Reference Range Interpretation Comments POC LACTIC ACID (test code = < 0.3 mmol/l 0.9-1.7 L POCLAC) GLUCOSE [id number] 00:53:00 Test Item Value Reference Range Interpretation Comments GLUCOSE BEDSIDE (test 126 MG/DL 70-110 H Perfor med by certified code = GLUBED) 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 [facility] - XR CHEST 1 [id number] 00:00:00 [facility] : 1950 Sex: M FAX: Luci Wang [phone] [place]: St: ADM FAX: Evon Garcia Phy [phone] ----- Name[facility] [place] [facility] 1950 Age/S: 72/M [address] [place] [address] Unit #: [id number] Loc: [address] [address] Phys: Evon Andrew Physic Acct: [id number] Dis Date: Status: ADM IN PHONE #: [phone] Exam Date: 03/08/2023818 FAX #: [phone] Reason: Cardiac Surgery Post Op EXAMS: CPT CODE: [id number] XR CHEST 1 V 69579 PROCEDURE INFORMATION: Exam: XR Chest Exam date and time: 03/08/2023 6:12 AM Age: 72 years old Clinical indication: Other: Cardiac surgery post op TECHNIQUE: Imaging protocol: Radiologic exam of the chest. Views: 1 view. COMPARISON: CR XR CHEST 1V 03/07/2023 5:09 AM FINDINGS: Tubes, catheters and devices: Interval removal of mediastinal/chest tube. Unchanged right neck vascular sheath. Lungs: Bilateral lung opacities have not significantly changed. Pleural spaces: No pneumothorax. Likely right pleural effusion. Heart/Mediastinum: The heart size is stable. 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 Bones/joints: Stable. IMPRESSION: Unchanged appearance of the lungs. [id number] Reported and signed by: Ezekiel Esteves M.D. 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 [facility] GLUCOSE [id number] 20:10:00 Test Item Value Reference Range Interpretation Comments GLUCOSE BEDSIDE (test 94 MG/DL 70-110 N Perfor med by certified code = GLUBED) 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 [facility] BASIC METABOLIC [id number] 18:01:00 Test Item Value Reference Range Interpretation Comments SODIUM (test code = 144 mEq/L 134-147 N NA) POTASSIUM (test code 4.0 mEq/L 3.4-5.0 N = K) CHLORIDE (test code 109 mEq/L 100-108 H = CL) CARBON DIOXIDE (test 28 mEq/l 21-33 N code = CO2) ANION GAP (test code 11 0-20 N = GAP) GLUCOSE (test code = 151 mg/dL 70-110 H GLU) BLOOD UREA NITROGEN 68 mg/dL 7-18 H (test code = BUN) GLOMERULAR 24.4 70-80 L The Glomerular FILTRATION RATE Filtration R ate is a (test code = GFR) calculated parameterbased on serum Creatinine, pat ient age and sex. GFR va luesless than 60 mL/min/ 1.73 square meters a re indicative ofCh ronic Kidney Disease. Values less than 15 mL/min/1.73squa re meters indicate Kidney failure. The calculation forGFR is based on the CKD-EPI (2020) calculat ion. This formulais race indifferent and is the recommended for nereida for GFRby the [facility].The GFR will not calculate if th e sex is unknown or if thepatient's ag e is <18 years. 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 [facility] BASIC METABOLIC [id number] 09:31:00 Test Item Value Reference Range Interpretation Comments SODIUM (test code = 144 mEq/L 134-147 N NA) POTASSIUM (test code 4.2 mEq/L 3.4-5.0 N = K) CHLORIDE (test code 108 mEq/L 100-108 N = CL) CARBON DIOXIDE (test 25 mEq/l 21-33 N code = CO2) ANION GAP (test code 15 0-20 N = GAP) GLUCOSE (test code = 214 mg/dL 70-110 H GLU) BLOOD UREA NITROGEN 66 mg/dL 7-18 H (test code = BUN) GLOMERULAR 23.4 70-80 L The Glomerular FILTRATION RATE Filtration R ate is a (test code = GFR) calculated parameterbased on serum Creatinine, pat ient age and sex. GFR va luesless than 60 mL/min/ 1.73 square meters a re indicative ofCh ronic Kidney Disease. Values less than 15 mL/min/1.73squa re meters indicate Kidney failure. The calculation forGFR is based on the CKD-EPI (2020) calculat ion. This formulais race indifferent and is the recommended for nereida for [facility]by the [facility].The GFR will not calculate if th e sex is unknown or if thepatient's ag e is <18 years. 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 [facility] BASIC METABOLIC [id number] 03:33:00 Test Item Value Reference Range Interpretation Comments SODIUM (test code = 144 mEq/L 134-147 N NA) POTASSIUM (test code 4.3 mEq/L 3.4-5.0 N = K) CHLORIDE (test code 110 mEq/L 100-108 H = CL) CARBON DIOXIDE (test 28 mEq/l 21-33 N code = CO2) ANION GAP (test code 11 0-20 N = GAP) GLUCOSE (test code = 157 mg/dL 70-110 H GLU) BLOOD UREA NITROGEN 56 mg/dL 7-18 H (test code = BUN) GLOMERULAR 22.4 70-80 L The Glomerular FILTRATION RATE Filtration R ate is a (test code = GFR) calculated parameterbased on serum Creatinine, pat ient age and sex. GFR va luesless than 60 mL/min/ 1.73 square meters a re indicative ofCh ronic Kidney Disease. Values less than 15 mL/min/1.73squa re meters indicate Kidney failure. The calculation forGFR is based on the CKD-EPI (2020) calculat ion. This formulais race indifferent and is the recommended for nereida for GFRby the [facility] for Adults.The GFR will not calculate if th e sex is unknown or if thepatient's ag e is <18 years. CREATININE (test 2.9 mg/dL 0.6-1.3 H code = CREAT) CALCIUM (test code = 8.6 mg/dL 8.0-10.5 N CA) COMMENTS: POD #1HEPATIC FUNCTION [id number] 03:33:00 Test Item Value Reference Range Interpretation Comments TOTAL PROTEIN (test code = PROT) 5.7 g/dL 6.4-8.2 L ALBUMIN (test code = ALB) 3.40 g/dL 3.4-5.0 N BILIRUBIN TOTAL (test code = BILT) 0.40 mg/dL 0.0-1.0 BILIRUBIN DIRECT (test code = 0.20 MG/DL 0.0-0.30 N BILD) BILIRUBIN INDIRECT (test code = 0.20 MG/DL BILIND) SGOT/AST (test code = AST) 26 IUnit/L 15-37 N SGPT/ALT (test code = ALT) 17 IUnit/L 30-65 L ALKALINE PHOSPHATASE TOTAL (test 41 IUnit/L 20-125 N code = ALKP) COMMENTS: POD #[id number] 03:33:00 Test Item Value Reference Range Interpretation Comments MAGNESIUM (test code = MAG) 2.71 mg/dL 1.80-2.40 H COMMENTS: POD #1CBC W/AUTO [id number] 03:29:00 Test Item Value Reference Range Interpretation Comments WHITE BLOOD CELL (test code = 7.8 x10 3/uL 4.5-11.0 N WBC) RED BLOOD CELL (test code = 3.42 x10 6/uL 4.00-5.60 L RBC) HEMOGLOBIN (test code = HGB) 10.1 g/dL 12.5-16.9 L HEMATOCRIT (test code = HCT) 31.4 % 37.5-50.7 L MEAN CELL VOLUME (test code = 91.8 fL 81.0-99.0 N MCV) MEAN CELL HGB (test code = MCH) 29.5 pg 27.0-33.0 N MEAN CELL HGB CONCETRATION 32.2 g/dL 33.0-37.0 L (test code = MCHC) RED CELL DISTRIBUTION WIDTH CV 17.1 % 11.5-14.5 H (test code = RDW) RED CELL DISTRIBUTION WIDTH SD 57.5 fL 37.0-54.0 H (test code = RDW-SD) PLATELET COUNT (test code = 103 x10 3/uL 150-400 L PLT) MEAN PLATELET VOLUME (test code 10.8 fL 7.0-9.0 H = MPV) NEUTROPHIL % (test code = NT%) 89.8 % 56.0-77.0 H IMMATURE GRANULOCYTE % (test 0.8 % 0.0-2.0 N code = IG%) LYMPHOCYTE % (test code = LY%) 2.7 % 14.0-32.0 L MONOCYTE % (test code = MO%) 6.7 % 4.8-9.0 N EOSINOPHIL % (test code = EO%) 0.0 % 0.3-3.7 L BASOPHIL % (test code = BA%) 0.0 % 0.0-2.0 N NUCLEATED RBC % (test code = 0.0 % 0-0 N NRBC%) NEUTROPHIL # (test code = NT#) 6.96 x10 3/uL 2.0-7.6 N IMMATURE GRANULOCYTE # (test 0.06 x10 3/uL 0.00-0.03 H code = IG#) LYMPHOCYTE # (test code = LY#) 0.21 x10 3/uL 1.0-3.8 L MONOCYTE # (test code = MO#) 0.52 x10 3/uL 0.1-0.8 N EOSINOPHIL # (test code = EO#) 0.00 x10 3/uL 0.0-0.2 N BASOPHIL # (test code = BA#) 0.00 x10 3/uL 0.0-0.2 N NUCLEATED RBC # (test code = 0.00 x10 3/uL 0.0-0.1 N NRBC#) MANUAL DIFF REQUIRED (test code NO = MDIFF) POC ARTERIAL BLOOD [id number] 02:41:00 Test Item Value Reference Range Interpretation Comments POC ARTERIAL BLOOD GAS PH (test 7.361 7.35-7.45 N code = POCPHA) POC ARTERIAL BLOOD GAS PCO2 (test 49.1 mmHg 35.0-45 H code = [id number]) POC TCO2 ARTERIAL (test code = 29.3 POCTCO2) POC ARTERIAL BLOOD GAS PO2 (test 79.1 mmHg 80-100.0 L code = VBRNG4G) POC HCO3 ARTERIAL (test code = 27.8 MMOL/L 22.0-26.0 H EVVLPK2T) POC BASE EXCESS (test code = 2.3 MMOL/L -4.0-4.0 N POCBEA) POC O2 SATURATION (test code = 94.9 % 90-100 N POCO2S) ABG DELIVERY (test code = RACIEL) [facility] ABG SITE (test code = SITEA) Art Line SHAYLA'S TEST (test code = ALLENS) Positive BASIC METABOLIC [id number] 02:41:00 Test Item Value Reference Range Interpretation Comments SODIUM (test code = NA/ABG) 146 mmol/L 134-147 N POTASSIUM (test code = K/ABG) 4.4 mmol/L 3.4-5.0 N CHLORIDE (test code = CL/ABG) 109 mmol/L 100-108 H CREATININE ABG (test code = 3.3 mg/dL 0.8-1.3 H CREAABG) POC IONIZED CALCIUM (test code = 1.21 MMOL/L 1.12-1.32 N POCCA) POC GLUCOSE (test code = POCGLU) 128 MG/DL 70-110 H HEMOGLOBIN [id number] 02:41:00 Test Item Value Reference Range Interpretation Comments HEMOGLOBIN ABG (test code = 10.7 G/DL 12.5-16.9 L HGB/ABG) [id number] 02:41:00 Test Item Value Reference Range Interpretation Comments HEMATOCRIT (test code = HCT/ABG) 32 % 37.5-50.7 L GLUCOSE [id number] 01:24:00 Test Item Value Reference Range Interpretation Comments GLUCOSE BEDSIDE (test 134 MG/DL 70-110 H Perfor med by certified code = GLUBED) 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 CHEST 1 [id number] 00:00:00 [facility] : 1950 Sex: M FAX: Luci Wang [phone] [place]: St: [facility] FAX: Evon Garcia [facility] [phone] ----- Name: TVEIN VAUGHAN [facility] : 1950 Age/S: 72/M [address] [place] [address] Blvd Unit #: [id number] Loc: G.2205 [place] [address] Phys: Evon Andrew Physic Acct: [id number] Dis Date: Status: ADM IN PHONE #: [phone] Exam Date: 03/07/2023 05 FAX #: [phone] Reason: Cardiac Surgery Post Op EXAMS: CPT CODE: [id number] XR CHEST 1 V [id number] PROCEDURE INFORMATION: Exam: XR Chest Exam date and time: 03/07/2023 5:09 AM Age: 72 years old Clinical indication: Other: Cardiac surgery post op TECHNIQUE: Imaging protocol: Radiologic exam of the chest. Views: 1 view. COMPARISON: 1. CR XR CHEST 1V 03/06/2023 5:07 AM 2.CR XR CHEST 1V 03/05/2023 4:59 AM FINDINGS: Limitations: Suboptimal positioning with portions of the lung bases beyond the field of view. Tubes, catheters and devices: Raritan-Murray catheter sheath in place. Left thoracostomy drain in place. Lungs: Indistinct interstitial lines bilateral. Indistinct basilar opacities asymmetric on the right. The right hemidiaphragm is now obscured. The left remains partially visible. Pleural spaces: Small left pneumothorax with separation at the apex less than 1 cm, without significant change. The costophrenic angles are indistinct. Heart/Mediastinum: The cardiomediastinal silhouette is stable. Bones/joints: Sternotomy wires are intact. IMPRESSION: 1. Increased interstitial opacities compatible with edema. 2. Increased right pleural effusion with associated basilar atelectasis versus airspace disease. 3. Stable small volume left pneumothorax with thoracostomy tube inplace. Stable left basilar pleuroparenchymal changes. at 0758 Reported and signed by: Erlin Brown M.D. 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 [facility] POC ARTERIAL BLOOD [id number] 21:10:00 Test Item Value Reference Range Interpretation Comments POC ARTERIAL BLOOD GAS PH (test 7.385 7.35-7.45 N code = POCPHA) POC ARTERIAL BLOOD GAS PCO2 (test 44.2 mmHg 35.0-45 N code = [id number]) POC TCO2 ARTERIAL (test code = 27.7 POCTCO2) POC ARTERIAL BLOOD GAS PO2 (test 75.5 mmHg 80-100.0 L code = UDGBL9H) POC HCO3 ARTERIAL (test code = 26.4 MMOL/L 22.0-26.0 H [id number]) POC BASE EXCESS (test code = 1.4 MMOL/L -4.0-4.0 N POCBEA) POC O2 SATURATION (test code = 94.5 % 90-100 N POCO2S) ABG DELIVERY (test code = RACIEL) Cannula ABG TEMPERATURE (test code = 99 F TEMPA) ABG SITE (test code = SITEA) Art Line SHAYLA'S TEST (test code = ALLENS) Positive BASIC METABOLIC [id number] 21:10:00 Test Item Value Reference Range Interpretation Comments SODIUM (test code = NA/ABG) 145 mmol/L 134-147 N POTASSIUM (test code = K/ABG) 4.6 mmol/L 3.4-5.0 N CHLORIDE (test code = CL/ABG) 108 mmol/L 100-108 N CREATININE ABG (test code = 3.8 mg/dL 0.8-1.3 H CREAABG) POC IONIZED CALCIUM (test code = 1.18 MMOL/L 1.12-1.32 N POCCA) POC GLUCOSE (test code = POCGLU) 213 MG/DL 70-110 H HEMOGLOBIN [id number] 21:10:00 Test Item Value Reference Range Interpretation Comments HEMOGLOBIN ABG (test code = 10.5 G/DL 12.5-16.9 L HGB/ABG) [id number] 21:10:00 Test Item Value Reference Range Interpretation Comments HEMATOCRIT (test code = HCT/ABG) 31 % 37.5-50.7 L BASIC METABOLIC [id number] 20:32:00 Test Item Value Reference Range Interpretation Comments SODIUM (test code = 145 mEq/L 134-147 N NA) POTASSIUM (test code 4.4 mEq/L 3.4-5.0 N = K) CHLORIDE (test code 110 mEq/L 100-108 H = CL) CARBON DIOXIDE (test 27 mEq/l 21-33 N code = CO2) ANION GAP (test code 13 0-20 N = GAP) GLUCOSE (test code = 231 mg/dL 70-110 H GLU) BLOOD UREA NITROGEN 58 mg/dL 7-18 H (test code = BUN) GLOMERULAR 21.5 70-80 L The Glomerular FILTRATION RATE Filtration R ate is a (test code = GFR) calculated parameterbased on serum Creatinine, pat ient age and sex. GFR va luesless than 60 mL/min/ 1.73 square meters a re indicative ofCh ronic Kidney Disease. Values less than 15 mL/min/1.73squa re meters indicate Kidney failure. The calculation forGFR is based on the CKD-EPI (2020) calculat ion. This formulais race indifferent and is the recommended for nereida for GFRby the [facility] on for Adults.The GFR will not calculate if th e sex is unknown or if thepatient's ag e is <18 years. CREATININE (test 3.0 mg/dL 0.6-1.3 H code = CREAT) CALCIUM (test code = 8.4 mg/dL 8.0-10.5 N CA) [id number] 20:32:00 Test Item Value Reference Range Interpretation Comments MAGNESIUM (test code = MAG) 2.53 mg/dL 1.80-2.40 H CBC W/AUTO [id number] 16:47:00 Test Item Value Reference Range Interpretation Comments WHITE BLOOD CELL (test code = 7.7 x10 3/uL 4.5-11.0 WBC) RED BLOOD CELL (test code = 3.30 x10 6/uL 4.00-5.60 L RBC) HEMOGLOBIN (test code = HGB) 10.1 g/dL 12.5-16.9 L HEMATOCRIT (test code = HCT) 30.3 % 37.5-50.7 L MEAN CELL VOLUME (test code = 91.8 fL 81.0-99.0 MCV) MEAN CELL HGB (test code = MCH) 30.6 pg 27.0-33.0 N MEAN CELL HGB CONCETRATION 33.3 g/dL 33.0-37.0 N (test code = MCHC) RED CELL DISTRIBUTION WIDTH CV 17.2 % 11.5-14.5 H (test code = RDW) RED CELL DISTRIBUTION WIDTH SD 58.3 fL 37.0-54.0 H (test code = RDW-SD) PLATELET COUNT (test code = 97 x10 3/uL 150-400 L PLT) MEAN PLATELET VOLUME (test code 11.1 fL 7.0-9.0 H = MPV) NEUTROPHIL % (test code = NT%) 91.1 % 56.0-77.0 H IMMATURE GRANULOCYTE % (test 0.9 % 0.0-2.0 N code = IG%) LYMPHOCYTE % (test code = LY%) 2.7 % 14.0-32.0 L MONOCYTE % (test code = MO%) 5.2 % 4.8-9.0 N EOSINOPHIL % (test code = EO%) 0.0 % 0.3-3.7 L BASOPHIL % (test code = BA%) 0.1 % 0.0-2.0 N NUCLEATED RBC % (test code = 0.0 % 0-0 N NRBC%) NEUTROPHIL # (test code = NT#) 7.00 x10 3/uL 2.0-7.6 N IMMATURE GRANULOCYTE # (test 0.07 x10 3/uL 0.00-0.03 H code = IG#) LYMPHOCYTE # (test code = LY#) 0.21 x10 3/uL 1.0-3.8 L MONOCYTE # (test code = MO#) 0.40 x10 3/uL 0.1-0.8 N EOSINOPHIL # (test code = EO#) 0.00 x10 3/uL 0.0-0.2 N BASOPHIL # (test code = BA#) 0.01 x10 3/uL 0.0-0.2 N NUCLEATED RBC # (test code = 0.00 x10 3/uL 0.0-0.1 N NRBC#) MANUAL DIFF REQUIRED (test code NO = MDIFF) POC ARTERIAL BLOOD [id number] 16:14:00 Test Item Value Reference Range Interpretation Comments POC ARTERIAL BLOOD GAS PH (test 7.331 7.35-7.45 L code = POCPHA) POC ARTERIAL BLOOD GAS PCO2 (test 51.3 mmHg 35.0-45 HH code = [id number]) POC TCO2 ARTERIAL (test code = 28.5 POCTCO2) POC ARTERIAL BLOOD GAS PO2 (test 112.0 mmHg 80-100.0 H code = [id number]) POC HCO3 ARTERIAL (test code = 27.0 MMOL/L 22.0-26.0 H [id number]) POC BASE EXCESS (test code = 1.2 MMOL/L -4.0-4.0 N POCBEA) POC O2 SATURATION (test code = 97.8 % 90-100 N POCO2S) ABG DELIVERY (test code = RACIEL) Cannula ABG TEMPERATURE (test code = 99.3 F TEMPA) ABG SITE (test code = SITEA) Art Line BASIC METABOLIC [id number] 16:14:00 Test Item Value Reference Range Interpretation Comments SODIUM (test code = NA/ABG) 144 mmol/L 134-147 N POTASSIUM (test code = K/ABG) 3.8 mmol/L 3.4-5.0 N CHLORIDE (test code = CL/ABG) 109 mmol/L 100-108 H CREATININE ABG (test code = 3.3 mg/dL 0.8-1.3 H CREAABG) POC IONIZED CALCIUM (test code = 1.18 MMOL/L 1.12-1.32 N POCCA) POC GLUCOSE (test code = POCGLU) 131 MG/DL 70-110 H HEMOGLOBIN [id number] 16:14:00 Test Item Value Reference Range Interpretation Comments HEMOGLOBIN ABG (test code = 10.0 G/DL 12.5-16.9 L HGB/ABG) [id number] 16:14:00 Test Item Value Reference Range Interpretation Comments HEMATOCRIT (test code = HCT/ABG) 29 % 37.5-50.7 L POC LACTIC [id number] 16:14:00 Test Item Value Reference Range Interpretation Comments POC LACTIC ACID (test code = 0.4 mmol/l 0.9-1.7 L POCLAC) GLUCOSE [id number] 14:02:00 Test Item Value Reference Range Interpretation Comments GLUCOSE BEDSIDE (test 176 MG/DL 70-110 H [facility] by certified code = GLUBED) 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 [facility] [id number] 13:38:00 Test Item Value Reference Interpretation Comments Range SURGICAL (test code = SR) RUN DATE: 03/06/23 [place] - LAB PAGE 1 RUN TIME: 1338 Specimen Inquiry RUN USER: INTERFACE PATIENT: TEVIN VAUGHAN LOC: CEDRICKU U #: [id number] AGE/SX: 72/M ROOM: [facility] RE03/03/23FERNIE DR: Luci Villeda : 52 BED: 1 DIS: STATUS: ADM IN TLOC: SPEC #: [id number] RECD: 03/05/23-1015 STATUS: GILBERT FORREST #: [id number] BHAVANI: 03/04/23- SUBM DR: Luci Villeda MD ENTERED: 03/05/23 SP TYPE: SURGICAL OTHR DR: No Primary or Family Physician Self Referred Noé Madrid MD, Molham MD Alnas, MajdORDERED: [id number], ANATOMIC SPEC COPIES TO: No Primary or Family Physician Self Referred Noé Madrid MD [address] [place] [address] Anibal Haynes MD [address] [place] [address] Sharmila Alan [address] [place] [address] [place] [address] Luci Villeda MD [address] [place] [address]. [address] [place] [address] PROCEDURES: [id number] (03/05/23) TISSUES: A. ATRIUM - LEFT ATRIAL APPENDAGE CLINICAL HISTORY SAME CONTINUED ON NEXT PAGE RUN DATE: 03/06/23 [place] - LAB PAGE 2 RUN TIME: 1338 Specimen Inquiry RUN USER: INTERFACE SPEC #: [id number] PATIENT: TEVIN VAUGHAN #[id number] (Continued) - FINAL DIAGNOSIS Heart, left atrial appendage, submitted: Cardiac muscle with some degenerative changes,consistent with atrial appendage. GROSS DESCRIPTION Received in formalin labeled left atrial appendage is a 3.5 x 2 x 1 cm portion of cysticmuscular tissue with attached adipose submitted (A). Technical component performed at [facility],[address] [place] [address], [place] [address] Unless gross only, the diagnosis is based upon microscopic examination.Immunohistochemistry: This test was developed and its performance characteristicsdetermined by this laboratory. It has not been approved nor does it need approvalby the [place] FDA. Appropriate positive and negative controls are reviewed and judgedto be acceptable for performedimmunohistochemistry and/or special stains. This laboratoryis certified under the Clinical Laboratory Improvement Amendments (CLIA-88) as qualified toperform high complexity clinical laboratory testing. 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 [facility] POC ARTERIAL BLOOD [id number] 10:46:00 Test Item Value Reference Range Interpretation Comments POC ARTERIAL BLOOD GAS PH (test 7.320 7.35-7.45 L code = POCPHA) POC ARTERIAL BLOOD GAS PCO2 (test 51.3 mmHg 35.0-45 HH code = [id number]) POC TCO2 ARTERIAL (test code = 27.9 POCTCO2) POC ARTERIAL BLOOD GAS PO2 (test 86.5 mmHg 80-100.0 N code = KCXYN9M) POC HCO3 ARTERIAL (test code = 26.3 MMOL/L 22.0-26.0 H LLAHVN3F) POC BASE EXCESS (test code = 0.3 MMOL/L -4.0-4.0 N POCBEA) POC O2 SATURATION (test code = 95.4 % 90-100 N POCO2S) ABG DELIVERY (test code = RACIEL) Cannula ABG TEMPERATURE (test code = 99.1 F TEMPA) ABG SITE (test code = SITEA) Art Line BASIC METABOLIC [id number] 10:46:00 Test Item Value Reference Range Interpretation Comments SODIUM (test code = NA/ABG) 144 mmol/L 134-147 N POTASSIUM (test code = K/ABG) 3.9 mmol/L 3.4-5.0 N CHLORIDE (test code = CL/ABG) 110 mmol/L 100-108 H CREATININE ABG (test code = 3.7 mg/dL 0.8-1.3 H CREAABG) POC IONIZED CALCIUM (test code = 1.16 MMOL/L 1.12-1.32 N POCCA) POC GLUCOSE (test code = POCGLU) 146 MG/DL 70-110 H HEMOGLOBIN [id number] 10:46:00 Test Item Value Reference Range Interpretation Comments HEMOGLOBIN ABG (test code = HGB/ABG) 8.6 G/DL 12.5-16.9 L [id number] 10:46:00 Test Item Value Reference Range Interpretation Comments HEMATOCRIT (test code = HCT/ABG) 25 % 37.5-50.7 L POC LACTIC [id number] 10:46:00 Test Item Value Reference Range Interpretation Comments POC LACTIC ACID (test code = 0.7 mmol/l 0.9-1.7 L POCLAC) GLUCOSE [id number] 08:47:00 Test Item Value Reference Range Interpretation Comments GLUCOSE BEDSIDE (test 130 MG/DL 70-110 H Perfor med by certified code = GLUBED) 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 [facility] POC ARTERIAL BLOOD [id number] 05:54:00 Test Item Value Reference Range Interpretation Comments POC ARTERIAL BLOOD GAS PH (test 7.318 7.35-7.45 L code = POCPHA) POC ARTERIAL BLOOD GAS PCO2 (test 52.4 mmHg 35.0-45 HH code = AGIGUZ1Q) POC TCO2 ARTERIAL (test code = 28.4 POCTCO2) POC ARTERIAL BLOOD GAS PO2 (test 74.1 mmHg 80-100.0 L code = BMVYO8F) POC HCO3 ARTERIAL (test code = 26.8 MMOL/L 22.0-26.0 H BOIMDD4B) POC BASE EXCESS (test code = 0.7 MMOL/L -4.0-4.0 N POCBEA) POC O2 SATURATION (test code = 93.1 % 90-100 N POCO2S) ABG DELIVERY (test code = RACIEL) 2L HFNC ABG SITE (test code = SITEA) Art Line BASIC METABOLIC [id number] 05:54:00 Test Item Value Reference Range Interpretation Comments SODIUM (test code = NA/ABG) 145 mmol/L 134-147 N POTASSIUM (test code = K/ABG) 4.0 mmol/L 3.4-5.0 N CHLORIDE (test code = CL/ABG) 110 mmol/L 100-108 H CREATININE ABG (test code = 3.4 mg/dL 0.8-1.3 H CREAABG) POC IONIZED CALCIUM (test code = 1.15 MMOL/L 1.12-1.32 N POCCA) POC GLUCOSE (test code = POCGLU) 128 MG/DL 70-110 H HEMOGLOBIN [id number] 05:54:00 Test Item Value Reference Range Interpretation Comments HEMOGLOBIN ABG (test code = HGB/ABG) 7.0 G/DL 12.5-16.9 L [id number] 05:54:00 Test Item Value Reference Range Interpretation Comments HEMATOCRIT (test code = HCT/ABG) 21 % 37.5-50.7 L POC LACTIC [id number] 05:54:00 Test Item Value Reference Range Interpretation Comments POC LACTIC ACID (test code = 0.3 mmol/l 0.9-1.7 L POCLAC) BASIC METABOLIC [id number] 03:47:00 Test Item Value Reference Range Interpretation Comments SODIUM (test code = 148 mEq/L 134-147 H NA) POTASSIUM (test code 4.4 mEq/L 3.4-5.0 N = K) CHLORIDE (test code 111 mEq/L 100-108 H = CL) CARBON DIOXIDE (test 27 mEq/l 21-33 N code = CO2) ANION GAP (test code 15 0-20 N = GAP) GLUCOSE (test code = 135 mg/dL 70-110 H GLU) BLOOD UREA NITROGEN 46 mg/dL 7-18 H (test code = BUN) GLOMERULAR 20.7 70-80 L The Glomerular FILTRATION RATE Filtration R ate is a (test code = GFR) calculated parameterbased on serum Creatinine, pat ient age and sex. GFR va luesless than 60 mL/min/ 1.73 square meters a re indicative ofCh ronic Kidney Disease. Values less than 15 mL/min/1.73squa re meters indicate Kidney failure. The calculation forGFR is based on the CKD-EPI (2020) calculat ion. This formulais race indifferent and is the recommended for nereida for GFRby the [facility] on for Adults.The GFR will not calculate if th e sex is unknown or if thepatient's ag e is <18 years. CREATININE (test 3.1 mg/dL 0.6-1.3 H code = CREAT) CALCIUM (test code = 9.1 mg/dL 8.0-10.5 N CA) COMMENTS: POD #1HEPATIC FUNCTION [id number] 03:47:00 Test Item Value Reference Range Interpretation Comments TOTAL PROTEIN (test code = PROT) 5.4 g/dL 6.4-8.2 L ALBUMIN (test code = ALB) 3.40 g/dL 3.4-5.0 N BILIRUBIN TOTAL (test code = BILT) 0.30 mg/dL 0.0-1.0 N BILIRUBIN DIRECT (test code = 0.20 MG/DL 0.0-0.30 N BILD) BILIRUBIN INDIRECT (test code = 0.10 MG/DL BILIND) SGOT/AST (test code = AST) 30 IUnit/L 15-37 N SGPT/ALT (test code = ALT) 15 IUnit/L 30-65 L ALKALINE PHOSPHATASE TOTAL (test 30 IUnit/L 20-125 N code = ALKP) COMMENTS: POD #[id number] 03:47:00 Test Item Value Reference Range Interpretation Comments MAGNESIUM (test code = MAG) 2.60 mg/dL 1.80-2.40 H COMMENTS: POD #1POC ARTERIAL BLOOD [id number] 01:35:00 Test Item Value Reference Range Interpretation Comments POC ARTERIAL BLOOD GAS PH (test 7.318 7.35-7.45 L code = POCPHA) POC ARTERIAL BLOOD GAS PCO2 (test 54.4 mmHg 35.0-45 HH code = PYERBA1H) POC TCO2 ARTERIAL (test code = 29.5 POCTCO2) POC ARTERIAL BLOOD GAS PO2 (test 147.3 mmHg 80-100.0 H code = ISDGG7R) POC HCO3 ARTERIAL (test code = 27.9 MMOL/L 22.0-26.0 H TVHEUH0B) POC BASE EXCESS (test code = 1.7 MMOL/L -4.0-4.0 N POCBEA) POC O2 SATURATION (test code = 99.0 % 90-100 N POCO2S) ABG DELIVERY (test code = RACIEL) 4L HFNC ABG SITE (test code = SITEA) Art Line BASIC METABOLIC [id number] 01:35:00 Test Item Value Reference Range Interpretation Comments SODIUM (test code = NA/ABG) 145 mmol/L 134-147 N POTASSIUM (test code = K/ABG) 4.1 mmol/L 3.4-5.0 N CHLORIDE (test code = CL/ABG) 109 mmol/L 100-108 H CREATININE ABG (test code = 3.3 mg/dL 0.8-1.3 H CREAABG) POC IONIZED CALCIUM (test code = 1.18 MMOL/L 1.12-1.32 N POCCA) POC GLUCOSE (test code = POCGLU) 114 MG/DL 70-110 H HEMOGLOBIN [id number] 01:35:00 Test Item Value Reference Range Interpretation Comments HEMOGLOBIN ABG (test code = HGB/ABG) 6.2 G/DL 12.5-16.9 L [id number] 01:35:00 Test Item Value Reference Range Interpretation Comments HEMATOCRIT (test code = HCT/ABG) 18 % 37.5-50.7 L POC LACTIC [id number] 01:35:00 Test Item Value Reference Range Interpretation Comments POC LACTIC ACID (test code = < 0.3 mmol/l 0.9-1.7 L POCLAC) CBC W/AUTO [id number] 01:34:00 Test Item Value Reference Range Interpretation Comments WHITE BLOOD CELL (test code = 3.8 x10 3/uL 4.5-11.0 L WBC) RED BLOOD CELL (test code = 2.16 x10 6/uL 4.00-5.60 L RBC) HEMOGLOBIN (test code = HGB) 6.6 g/dL 12.5-16.9 L HEMATOCRIT (test code = HCT) 20.9 % 37.5-50.7 L MEAN CELL VOLUME (test code = 96.8 fL 81.0-99.0 N MCV) MEAN CELL HGB (test code = MCH) 30.6 pg 27.0-33.0 N MEAN CELL HGB CONCETRATION 31.6 g/dL 33.0-37.0 L (test code = MCHC) RED CELL DISTRIBUTION WIDTH CV 17.2 % 11.5-14.5 H (test code = RDW) RED CELL DISTRIBUTION WIDTH SD 61.0 fL 37.0-54.0 H (test code = RDW-SD) PLATELET COUNT (test code = 77 x10 3/uL 150-400 L PLT) MEAN PLATELET VOLUME (test code 11.4 fL 7.0-9.0 H = MPV) NEUTROPHIL % (test code = NT%) 85.2 % 56.0-77.0 H IMMATURE GRANULOCYTE % (test 0.8 % 0.0-2.0 N code = IG%) LYMPHOCYTE % (test code = LY%) 4.2 % 14.0-32.0 L MONOCYTE % (test code = MO%) 9.8 % 4.8-9.0 H EOSINOPHIL % (test code = EO%) 0.0 % 0.3-3.7 L BASOPHIL % (test code = BA%) 0.0 % 0.0-2.0 N NUCLEATED RBC % (test code = 0.0 % 0-0 N NRBC%) NEUTROPHIL # (test code = NT#) 3.22 x10 3/uL 2.0-7.6 N IMMATURE GRANULOCYTE # (test 0.03 x10 3/uL 0.00-0.03 N code = IG#) LYMPHOCYTE # (test code = LY#) 0.16 x10 3/uL 1.0-3.8 L MONOCYTE # (test code = MO#) 0.37 x10 3/uL 0.1-0.8 N EOSINOPHIL # (test code = EO#) 0.00 x10 3/uL 0.0-0.2 N BASOPHIL # (test code = BA#) 0.00 x10 3/uL 0.0-0.2 N NUCLEATED RBC # (test code = 0.00 x10 3/uL 0.0-0.1 N NRBC#) MANUAL DIFF REQUIRED (test code NO = MDIFF) - XR CHEST 1 [id number] 00:00:00 [facility] 1950 Sex: M FAX: Luci Wang [phone] [place]: St: [facility] FAX: Evon Garcia y [phone] ----- Name: TEVIN VAUGHAN [facility] : 1950 Age/S: 72/M [address] [place] [address] Unit #: [id number] Loc: G.2201 [place] [address] Phys: Evon Andrew Acct: [id number] Dis Date: Status: ADM IN PHONE #: [phone] Exam Date: 03/06/2023 0639 FAX #: [phone] Reason: Cardiac Surgery Post Op EXAMS: CPT CODE: [id number] XR CHEST 1 V [id number] PROCEDURE INFORMATION: Exam: XR Chest Exam date and time: 03/06/2023 5:07 AM Age: 72 years old Clinical indication: Other: Cardiac surgery post op TECHNIQUE: Imaging protocol: Radiologic exam of the chest. Views: 1 view. COMPARISON: CR XR CHEST 1V 03/05/2023 4:59 AM FINDINGS: Tubes, catheters and devices: Stable right IJ central line. Lungs: The bilateral lung opacities are grossly stable. Pleural spaces: Small pleural effusions could be present. Stable small left pneumothorax involving less than 10% volume. Heart/Mediastinum: The heart size is stable. Vasculature: Atherosclerotic calcifications. Bones/joints: Stable. Median sternotomy wires. IMPRESSION: 1. Grossly stable exam. 2. Stable small left pneumothorax involving less than 10% volume. Stable left chest tube. at 0805 Reported and signed by: Bon Spangler M.D. CC: Luci Villeda MD; Evon Andrew Technologist: RT Perla(R) Trnscrd Date/Time/By: 03/06/2023 (804) : By: [email or web address] Orig Print D/T: S: 03/06/2023 (804) PAGE 1 Signed ReportCBC W/AUTO [id number] 23:46:00 Test Item Value Reference Range Interpretation Comments WHITE BLOOD CELL (test code = 4.6 x10 3/uL 4.5-11.0 N WBC) RED BLOOD CELL (test code = 2.32 x10 6/uL 4.00-5.60 L RBC) HEMOGLOBIN (test code = HGB) 7.2 g/dL 12.5-16.9 L HEMATOCRIT (test code = HCT) 22.0 % 37.5-50.7 L MEAN CELL VOLUME (test code = 94.8 fL 81.0-99.0 N MCV) MEAN CELL HGB (test code = MCH) 31.0 pg 27.0-33.0 N MEAN CELL HGB CONCETRATION 32.7 g/dL 33.0-37.0 L (test code = MCHC) RED CELL DISTRIBUTION WIDTH CV 17.2 % 11.5-14.5 H (test code = RDW) RED CELL DISTRIBUTION WIDTH SD 58.8 fL 37.0-54.0 H (test code = RDW-SD) PLATELET COUNT (test code = 84 x10 3/uL 150-400 L PLT) MEAN PLATELET VOLUME (test code 10.9 fL 7.0-9.0 H = MPV) NEUTROPHIL % (test code = NT%) 87.8 % 56.0-77.0 H IMMATURE GRANULOCYTE % (test 0.6 % 0.0-2.0 N code = IG%) LYMPHOCYTE % (test code = LY%) 3.2 % 14.0-32.0 L MONOCYTE % (test code = MO%) 8.4 % 4.8-9.0 N EOSINOPHIL % (test code = EO%) 0.0 % 0.3-3.7 L BASOPHIL % (test code = BA%) 0.0 % 0.0-2.0 N NUCLEATED RBC % (test code = 0.0 % 0-0 N NRBC%) NEUTROPHIL # (test code = NT#) 4.05 x10 3/uL 2.0-7.6 N IMMATURE GRANULOCYTE # (test 0.03 x10 3/uL 0.00-0.03 N code = IG#) LYMPHOCYTE # (test code = LY#) 0.15 x10 3/uL 1.0-3.8 L MONOCYTE # (test code = MO#) 0.39 x10 3/uL 0.1-0.8 N EOSINOPHIL # (test code = EO#) 0.00 x10 3/uL 0.0-0.2 N BASOPHIL # (test code = BA#) 0.00 x10 3/uL 0.0-0.2 N NUCLEATED RBC # (test code = 0.00 x10 3/uL 0.0-0.1 N NRBC#) MANUAL DIFF REQUIRED (test code NO = MDIFF) BASIC METABOLIC [id number] 23:21:00 Test Item Value Reference Range Interpretation Comments SODIUM (test code = 147 mEq/L 134-147 N NA) POTASSIUM (test code 4.4 mEq/L 3.4-5.0 N = K) CHLORIDE (test code 110 mEq/L 100-108 H = CL) CARBON DIOXIDE (test 29 mEq/l 21-33 N code = CO2) ANION GAP (test code 12 0-20 N = GAP) GLUCOSE (test code = 158 mg/dL 70-110 H GLU) BLOOD UREA NITROGEN 44 mg/dL 7-18 H (test code = BUN) GLOMERULAR 22.4 70-80 L The Glomerular FILTRATION RATE Filtration R ate is a (test code = GFR) calculated parameterbased on serum Creatinine, pat ient age and sex. GFR va luesless than 60 mL/min/ 1.73 square meters a re indicative ofCh ronic Kidney Disease. Values less than 15 mL/min/1.73squa re meters indicate Kidney failure. The calculation forGFR is based on the CKD-EPI (2020) calculat ion. This formulais race indifferent and is the recommended for nereida for GFRby the [facility]ney Foundati on for Adults.The GFR will not calculate if th e sex is unknown or if thepatient's ag e is <18 years. CREATININE (test 2.9 mg/dL 0.6-1.3 H code = CREAT) CALCIUM (test code = 8.8 mg/dL 8.0-10.5 N CA) [id number] 23:21:00 Test Item Value Reference Range Interpretation Comments PHOSPHOROUS (test code = PHOS) 5.2 MG/DL 2.5-4.9 H [id number] 23:21:00 Test Item Value Reference Range Interpretation Comments MAGNESIUM (test code = MAG) 2.69 mg/dL 1.80-2.40 H POC ARTERIAL BLOOD [id number] 23:18:00 Test Item Value Reference Range Interpretation Comments POC ARTERIAL BLOOD GAS PH (test 7.354 7.35-7.45 N code = POCPHA) POC ARTERIAL BLOOD GAS PCO2 (test 49.1 mmHg 35.0-45 H code = BNMIRC5N) POC TCO2 ARTERIAL (test code = 28.9 POCTCO2) POC ARTERIAL BLOOD GAS PO2 (test 94.7 mmHg 80-100.0 N code = IKOOH8R) POC HCO3 ARTERIAL (test code = 27.4 MMOL/L 22.0-26.0 H NHPCUE9D) POC BASE EXCESS (test code = 1.8 MMOL/L -4.0-4.0 N POCBEA) POC O2 SATURATION (test code = 96.9 % 90-100 N POCO2S) ABG DELIVERY (test code = RACIEL) 4L HFNC ABG SITE (test code = SITEA) Art Line BASIC METABOLIC [id number] 23:18:00 Test Item Value Reference Range Interpretation Comments SODIUM (test code = NA/ABG) 145 mmol/L 134-147 N POTASSIUM (test code = K/ABG) 3.9 mmol/L 3.4-5.0 N CHLORIDE (test code = CL/ABG) 110 mmol/L 100-108 H CREATININE ABG (test code = 2.8 mg/dL 0.8-1.3 H CREAABG) POC IONIZED CALCIUM (test code = 1.20 MMOL/L 1.12-1.32 N POCCA) POC GLUCOSE (test code = POCGLU) 116 MG/DL 70-110 H HEMOGLOBIN [id number] 23:18:00 Test Item Value Reference Range Interpretation Comments HEMOGLOBIN ABG (test code = HGB/ABG) 6.8 G/DL 12.5-16.9 L [id number] 23:18:00 Test Item Value Reference Range Interpretation Comments HEMATOCRIT (test code = HCT/ABG) 20 % 37.5-50.7 L POC LACTIC [id number] 23:18:00 Test Item Value Reference Range Interpretation Comments POC LACTIC ACID (test code = 0.7 mmol/l 0.9-1.7 L POCLAC) POC ARTERIAL BLOOD [id number] 22:10:00 Test Item Value Reference Range Interpretation Comments POC ARTERIAL BLOOD GAS PH (test 7.341 7.35-7.45 L code = POCPHA) POC ARTERIAL BLOOD GAS PCO2 (test 54.8 mmHg 35.0-45 HH code = NJAYTE3A) POC TCO2 ARTERIAL (test code = 31.3 POCTCO2) POC ARTERIAL BLOOD GAS PO2 (test 91.2 mmHg 80-100.0 N code = AARSD9A) POC HCO3 ARTERIAL (test code = 29.6 MMOL/L 22.0-26.0 HH [id number]) POC BASE EXCESS (test code = 3.9 MMOL/L -4.0-4.0 N POCBEA) POC O2 SATURATION (test code = 96.3 % 90-100 N POCO2S) BASIC METABOLIC [id number] 22:10:00 Test Item Value Reference Range Interpretation Comments SODIUM (test code = NA/ABG) 146 mmol/L 134-147 N POTASSIUM (test code = K/ABG) 4.2 mmol/L 3.4-5.0 N CHLORIDE (test code = CL/ABG) 112 mmol/L 100-108 H CREATININE ABG (test code = 3.0 mg/dL 0.8-1.3 H CREAABG) POC IONIZED CALCIUM (test code = 1.17 MMOL/L 1.12-1.32 N POCCA) POC GLUCOSE (test code = POCGLU) 104 MG/DL 70-110 N HEMOGLOBIN [id number] 22:10:00 Test Item Value Reference Range Interpretation Comments HEMOGLOBIN ABG (test code = HGB/ABG) 7.8 G/DL 12.5-16.9 L [id number] 22:10:00 Test Item Value Reference Range Interpretation Comments HEMATOCRIT (test code = HCT/ABG) 23 % 37.5-50.7 L POC LACTIC [id number] 22:10:00 Test Item Value Reference Range Interpretation Comments POC LACTIC ACID (test code = 0.4 mmol/l 0.9-1.7 L POCLAC) GLUCOSE [id number] 20:35:00 Test Item Value Reference Range Interpretation Comments GLUCOSE BEDSIDE (test 124 MG/DL 70-110 H Perfor med by certified code = GLUBED) 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 [facility] POC ARTERIAL BLOOD [id number] 20:23:00 Test Item Value Reference Range Interpretation Comments POC ARTERIAL BLOOD GAS PH (test 7.342 7.35-7.45 L code = POCPHA) POC ARTERIAL BLOOD GAS PCO2 53.0 mmHg 35.0-45 HH (test code = YBSDDA2U) POC TCO2 ARTERIAL (test code = 30.4 POCTCO2) POC ARTERIAL BLOOD GAS PO2 (test 202.6 mmHg 80-100.0 HH code = LHXJK5T) POC HCO3 ARTERIAL (test code = 28.7 MMOL/L 22.0-26.0 HH [id number]) POC BASE EXCESS (test code = 3.0 MMOL/L -4.0-4.0 N POCBEA) POC O2 SATURATION (test code = 99.7 % 90-100 N POCO2S) FIO2 (test code = FIO2A) 60 % PaO2/FiO2 (test code = SGL0UIH6) 337.66 mm/Hg ABG DELIVERY (test code = RACIEL) AVAPS ABG SITE (test code = SITEA) Art Line BASIC METABOLIC [id number] 20:23:00 Test Item Value Reference Range Interpretation Comments SODIUM (test code = NA/ABG) 146 mmol/L 134-147 N POTASSIUM (test code = K/ABG) 4.1 mmol/L 3.4-5.0 N CHLORIDE (test code = CL/ABG) 110 mmol/L 100-108 H CREATININE ABG (test code = 2.0 mg/dL 0.8-1.3 H CREAABG) POC IONIZED CALCIUM (test code = 1.15 MMOL/L 1.12-1.32 N POCCA) POC GLUCOSE (test code = POCGLU) 116 MG/DL 70-110 H HEMOGLOBIN [id number] 20:23:00 Test Item Value Reference Range Interpretation Comments HEMOGLOBIN ABG (test code = HGB/ABG) 7.6 G/DL 12.5-16.9 L [id number] 20:23:00 Test Item Value Reference Range Interpretation Comments HEMATOCRIT (test code = HCT/ABG) 22 % 37.5-50.7 L POC LACTIC [id number] 20:23:00 Test Item Value Reference Range Interpretation Comments POC LACTIC ACID (test code = < 0.3 mmol/l 0.9-1.7 L POCLAC) UR SODIUM [id number] 19:27:00 Test Item Value Reference Range Interpretation Comments UR SODIUM RANDOM 14 MEQ/L The Referen ce Range and (test code = JERSON) Method Per formance specificationsh ave not been established for this fluid. The test result should be correlated into the clinical context forinte rpretation. UR CREATININE [id number] 19:27:00 Test Item Value Reference Range Interpretation Comments UR CREATININE 53.7 mg/dL The Reference Range and RANDOM (test code Method Per formance = CREATU) specificationsh ave not been establishe d for this fluid. The test resultshould be correlated into the clinical contex t forinterpretati on. POC ARTERIAL BLOOD [id number] 18:16:00 Test Item Value Reference Range Interpretation Comments POC ARTERIAL BLOOD GAS PH (test 7.339 7.35-7.45 L code = POCPHA) POC ARTERIAL BLOOD GAS PCO2 55.2 mmHg 35.0-45 HH (test code = [id number]) POC TCO2 ARTERIAL (test code = 31.4 POCTCO2) POC ARTERIAL BLOOD GAS PO2 (test 85.1 mmHg 80-100.0 N code = [id number]) POC HCO3 ARTERIAL (test code = 29.7 MMOL/L 22.0-26.0 HH [id number]) POC BASE EXCESS (test code = 4.0 MMOL/L -4.0-4.0 N POCBEA) POC O2 SATURATION (test code = 95.5 % 90-100 N POCO2S) FIO2 (test code = FIO2A) 60.0 % PaO2/FiO2 (test code = [id number]) 141.80 mm/Hg ABG DELIVERY (test code = RACIEL) BiPAP ABG SITE (test code = SITEA) Art Line SHAYLA'S TEST (test code = N/A ALLENS) BASIC METABOLIC [id number] 18:16:00 Test Item Value Reference Range Interpretation Comments SODIUM (test code = NA/ABG) 144 mmol/L 134-147 N POTASSIUM (test code = K/ABG) 4.2 mmol/L 3.4-5.0 N CHLORIDE (test code = CL/ABG) 111 mmol/L 100-108 H CREATININE ABG (test code = 2.8 mg/dL 0.8-1.3 H CREAABG) POC IONIZED CALCIUM (test code = 1.16 MMOL/L 1.12-1.32 N POCCA) POC GLUCOSE (test code = POCGLU) 186 MG/DL 70-110 H HEMOGLOBIN [id number] 18:16:00 Test Item Value Reference Range Interpretation Comments HEMOGLOBIN ABG (test code = HGB/ABG) 8.3 G/DL 12.5-16.9 L [id number] 18:16:00 Test Item Value Reference Range Interpretation Comments HEMATOCRIT (test code = HCT/ABG) 24 % 37.5-50.7 L POC LACTIC [id number] 18:16:00 Test Item Value Reference Range Interpretation Comments POC LACTIC ACID (test code = 0.8 mmol/l 0.9-1.7 L POCLAC) BASIC METABOLIC [id number] 17:33:00 Test Item Value Reference Range Interpretation Comments SODIUM (test code = 148 mEq/L 134-147 H NA) POTASSIUM (test code 4.5 mEq/L 3.4-5.0 N = K) CHLORIDE (test code 109 mEq/L 100-108 H = CL) CARBON DIOXIDE (test 27 mEq/l 21-33 N code = CO2) ANION GAP (test code 16 0-20 N = GAP) GLUCOSE (test code = 217 mg/dL 70-110 H GLU) BLOOD UREA NITROGEN 41 mg/dL 7-18 H (test code = BUN) GLOMERULAR 24.4 70-80 L The Glomerular FILTRATION RATE Filtration R ate is a (test code = GFR) calculated parameterbased on serum Creatinine, pat ient age and sex. GFR va luesless than 60 mL/min/ 1.73 square meters a re indicative ofCh ronic Kidney Disease. Values less than 15 mL/min/1.73squa re meters indicate Kidney failure. The calculation forGFR is based on the CKD-EPI (2020) calculat ion. This formulais race indifferent and is the recommended for nereida for GFRby the [facility] on for Adults.The GFR will not calculate if th e sex is unknown or if thepatient's ag e is <18 years. 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 [facility] POC ARTERIAL BLOOD [id number] 15:47:00 Test Item Value Reference Range Interpretation Comments POC ARTERIAL BLOOD GAS PH (test 7.275 7.35-7.45 LL code = POCPHA) POC ARTERIAL BLOOD GAS PCO2 (test 62.7 mmHg 35.0-45 HH code = [id number]) POC TCO2 ARTERIAL (test code = 31.0 POCTCO2) POC ARTERIAL BLOOD GAS PO2 (test 110.1 mmHg 80-100.0 H code = UTUAQ0S) POC HCO3 ARTERIAL (test code = 29.1 MMOL/L 22.0-26.0 HH [id number]) POC BASE EXCESS (test code = 2.3 MMOL/L -4.0-4.0 N POCBEA) POC O2 SATURATION (test code = 97.4 % 90-100 N POCO2S) ABG DELIVERY (test code = RACIEL) BiPAP ABG SITE (test code = SITEA) Art Line BASIC METABOLIC [id number] 15:47:00 Test Item Value Reference Range Interpretation Comments SODIUM (test code = NA/ABG) 145 mmol/L 134-147 N POTASSIUM (test code = K/ABG) 4.4 mmol/L 3.4-5.0 N CHLORIDE (test code = CL/ABG) 110 mmol/L 100-108 H CREATININE ABG (test code = 2.7 mg/dL 0.8-1.3 H CREAABG) POC IONIZED CALCIUM (test code = 1.21 MMOL/L 1.12-1.32 N POCCA) POC GLUCOSE (test code = POCGLU) 196 MG/DL 70-110 H HEMOGLOBIN [id number] 15:47:00 Test Item Value Reference Range Interpretation Comments HEMOGLOBIN ABG (test code = HGB/ABG) 8.4 G/DL 12.5-16.9 L [id number] 15:47:00 Test Item Value Reference Range Interpretation Comments HEMATOCRIT (test code = HCT/ABG) 25 % 37.5-50.7 L POC LACTIC [id number] 15:47:00 Test Item Value Reference Range Interpretation Comments POC LACTIC ACID (test code = 0.5 mmol/l 0.9-1.7 L POCLAC) POC ARTERIAL BLOOD [id number] 14:48:00 Test Item Value Reference Range Interpretation Comments POC ARTERIAL BLOOD GAS PH (test 7.317 7.35-7.45 L code = POCPHA) POC ARTERIAL BLOOD GAS PCO2 55.6 mmHg 35.0-45 HH (test code = NJJNRC3A) POC TCO2 ARTERIAL (test code = 30.1 POCTCO2) POC ARTERIAL BLOOD GAS PO2 (test 185.9 mmHg 80-100.0 H code = PPUIY0Q) POC HCO3 ARTERIAL (test code = 28.4 MMOL/L 22.0-26.0 HH [id number]) POC BASE EXCESS (test code = 2.3 MMOL/L -4.0-4.0 N POCBEA) POC O2 SATURATION (test code = 99.5 % 90-100 N POCO2S) FIO2 (test code = FIO2A) 40 % PaO2/FiO2 (test code = [id number]) 464.75 mm/Hg ABG DELIVERY (test code = RACIEL) BiPAP ABG VENT RESP RATE (test code = 20 /MIN RRA) ABG TIDAL VOLUME (test code = 450 ml TVA) ABG PEEP (test code = PEEPA) 8 cmH2O ABG PRESSURE SUPPORT (test code 25 cmH2O = PSABG) ABG TEMPERATURE (test code = 98.8 F TEMPA) ABG SITE (test code = SITEA) Art Line SHAYLA'S TEST (test code = N/A ALLENS) BASIC METABOLIC [id number] 14:48:00 Test Item Value Reference Range Interpretation Comments SODIUM (test code = NA/ABG) 145 mmol/L 134-147 N POTASSIUM (test code = K/ABG) 4.4 mmol/L 3.4-5.0 N CHLORIDE (test code = CL/ABG) 112 mmol/L 100-108 H CREATININE ABG (test code = 2.4 mg/dL 0.8-1.3 H CREAABG) POC IONIZED CALCIUM (test code = 1.17 MMOL/L 1.12-1.32 N POCCA) POC GLUCOSE (test code = POCGLU) 223 MG/DL 70-110 H HEMOGLOBIN [id number] 14:48:00 Test Item Value Reference Range Interpretation Comments HEMOGLOBIN ABG (test code = HGB/ABG) 7.9 G/DL 12.5-16.9 L [id number] 14:48:00 Test Item Value Reference Range Interpretation Comments HEMATOCRIT (test code = HCT/ABG) 23 % 37.5-50.7 L POC LACTIC [id number] 14:48:00 Test Item Value Reference Range Interpretation Comments POC LACTIC ACID (test code = 0.8 mmol/l 0.9-1.7 L POCLAC) CBC W/AUTO [id number] 11:05:00 Test Item Value Reference Range Interpretation Comments WHITE BLOOD CELL (test code = 7.2 x10 3/uL 4.5-11.0 WBC) RED BLOOD CELL (test code = 2.71 x10 6/uL 4.00-5.60 L RBC) HEMOGLOBIN (test code = HGB) 8.3 g/dL 12.5-16.9 L HEMATOCRIT (test code = HCT) 25.2 % 37.5-50.7 L MEAN CELL VOLUME (test code = 93.0 fL 81.0-99.0 N MCV) MEAN CELL HGB (test code = MCH) 30.6 pg 27.0-33.0 N MEAN CELL HGB CONCETRATION 32.9 g/dL 33.0-37.0 L (test code = MCHC) RED CELL DISTRIBUTION WIDTH CV 17.1 % 11.5-14.5 H (test code = RDW) RED CELL DISTRIBUTION WIDTH SD 57.0 fL 37.0-54.0 H (test code = RDW-SD) PLATELET COUNT (test code = 123 x10 3/uL 150-400 L PLT) MEAN PLATELET VOLUME (test code 11.0 fL 7.0-9.0 H = MPV) NEUTROPHIL % (test code = NT%) 85.7 % 56.0-77.0 H IMMATURE GRANULOCYTE % (test 0.4 % 0.0-2.0 N code = IG%) LYMPHOCYTE % (test code = LY%) 3.6 % 14.0-32.0 L MONOCYTE % (test code = MO%) 10.3 % 4.8-9.0 H EOSINOPHIL % (test code = EO%) 0.0 % 0.3-3.7 L BASOPHIL % (test code = BA%) 0.0 % 0.0-2.0 N NUCLEATED RBC % (test code = 0.0 % 0-0 N NRBC%) NEUTROPHIL # (test code = NT#) 6.16 x10 3/uL 2.0-7.6 N IMMATURE GRANULOCYTE # (test 0.03 x10 3/uL 0.00-0.03 N code = IG#) LYMPHOCYTE # (test code = LY#) 0.26 x10 3/uL 1.0-3.8 L MONOCYTE # (test code = MO#) 0.74 x10 3/uL 0.1-0.8 N EOSINOPHIL # (test code = EO#) 0.00 x10 3/uL 0.0-0.2 N BASOPHIL # (test code = BA#) 0.00 x10 3/uL 0.0-0.2 N NUCLEATED RBC # (test code = 0.00 x10 3/uL 0.0-0.1 N NRBC#) MANUAL DIFF REQUIRED (test code NO = MDIFF) POC ARTERIAL BLOOD [id number] 10:51:00 Test Item Value Reference Range Interpretation Comments POC ARTERIAL BLOOD GAS PH (test 7.327 7.35-7.45 L code = POCPHA) POC ARTERIAL BLOOD GAS PCO2 63.4 mmHg 35.0-45 HH (test code = ZDGRBY2Q) POC TCO2 ARTERIAL (test code = 35.2 POCTCO2) POC ARTERIAL BLOOD GAS PO2 (test 108.3 mmHg 80-100.0 H code = VEDJB4V) POC HCO3 ARTERIAL (test code = 33.2 MMOL/L 22.0-26.0 HH [id number]) POC BASE EXCESS (test code = 7.2 MMOL/L -4.0-4.0 H POCBEA) POC O2 SATURATION (test code = 97.6 % 90-100 N POCO2S) FIO2 (test code = FIO2A) 30 % PaO2/FiO2 (test code = [id number]) 361.00 mm/Hg ABG DELIVERY (test code = RACIEL) BiPAP ABG VENT RESP RATE (test code = 24 /MIN RRA) ABG PEEP (test code = PEEPA) 7 cmH2O ABG PRESSURE SUPPORT (test code 15 cmH2O = PSABG) ABG TEMPERATURE (test code = 98.6 F TEMPA) ABG SITE (test code = SITEA) Art Line SHAYLA'S TEST (test code = N/A ROBERT) BASIC METABOLIC [id number] 10:51:00 Test Item Value Reference Range Interpretation Comments SODIUM (test code = NA/ABG) 148 mmol/L 134-147 H POTASSIUM (test code = K/ABG) 4.4 mmol/L 3.4-5.0 N CHLORIDE (test code = CL/ABG) 108 mmol/L 100-108 N CREATININE ABG (test code = 2.4 mg/dL 0.8-1.3 H CREAABG) POC IONIZED CALCIUM (test code = 1.25 MMOL/L 1.12-1.32 N POCCA) POC GLUCOSE (test code = POCGLU) 88 MG/DL 70-110 N HEMOGLOBIN [id number] 10:51:00 Test Item Value Reference Range Interpretation Comments HEMOGLOBIN ABG (test code = HGB/ABG) 8.0 G/DL 12.5-16.9 L [id number] 10:51:00 Test Item Value Reference Range Interpretation Comments HEMATOCRIT (test code = HCT/ABG) 24 % 37.5-50.7 L POC LACTIC [id number] 10:51:00 Test Item Value Reference Range Interpretation Comments POC LACTIC ACID (test code = 0.5 mmol/l 0.9-1.7 L POCLAC) GLUCOSE [id number] 10:17:00 Test Item Value Reference Range Interpretation Comments GLUCOSE BEDSIDE (test 110 MG/DL 70-110 N [facility] med by certified code = GLUBED) 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 [facility] BASIC METABOLIC [id number] 08:28:00 Test Item Value Reference Range Interpretation Comments SODIUM (test code = 148 mEq/L 134-147 H NA) POTASSIUM (test code 4.6 mEq/L 3.4-5.0 N = K) CHLORIDE (test code 111 mEq/L 100-108 H = CL) CARBON DIOXIDE (test 32 mEq/l 21-33 N code = CO2) ANION GAP (test code 10 0-20 N = GAP) GLUCOSE (test code = 134 mg/dL 70-110 H GLU) BLOOD UREA NITROGEN 37 mg/dL 7-18 H (test code = BUN) GLOMERULAR 29.6 70-80 L The Glomerular FILTRATION RATE Filtration R ate is a (test code = GFR) calculated parameterbased on serum Creatinine, pat ient age and sex. GFR va luesless than 60 mL/min/ 1.73 square meters a re indicative ofCh ronic Kidney Disease. Values less than 15 mL/min/1.73squa re meters indicate Kidney failure. The calculation forGFR is based on the CKD-EPI (2020) calculat ion. This formulais race indifferent and is the recommended for nereida for GFRby the [facility] for Ad[facility].The GFR will not calculate if th e sex is unknown or if thepatient's ag e is <18 years. CREATININE (test 2.3 mg/dL 0.6-1.3 H code = CREAT) CALCIUM (test code = 8.7 mg/dL 8.0-10.5 N CA) [id number] 08:28:00 Test Item Value Reference Range Interpretation Comments MAGNESIUM (test code = MAG) 2.35 mg/dL 1.80-2.40 N CALCIUM [id number] 08:28:00 Test Item Value Reference Range Interpretation Comments CALCIUM IONIZED (test code = BIBIANA) 1.14 MMOL/L 1.09-1.30 N POC ARTERIAL BLOOD [id number] 07:46:00 Test Item Value Reference Range Interpretation Comments POC ARTERIAL BLOOD GAS PH (test 7.343 7.35-7.45 L code = POCPHA) POC ARTERIAL BLOOD GAS PCO2 58.9 mmHg 35.0-45 HH (test code = DIETWF3R) POC TCO2 ARTERIAL (test code = 33.8 POCTCO2) POC ARTERIAL BLOOD GAS PO2 (test 82.1 mmHg 80-100.0 N code = ZIXXV0B) POC HCO3 ARTERIAL (test code = 32.0 MMOL/L 22.0-26.0 HH [id number]) POC BASE EXCESS (test code = 6.3 MMOL/L -4.0-4.0 H POCBEA) POC O2 SATURATION (test code = 95.1 % 90-100 N POCO2S) FIO2 (test code = FIO2A) 30 % PaO2/FiO2 (test code = [id number]) 273.66 mm/Hg ABG DELIVERY (test code = RACIEL) Bagging ABG VENT MODE (test code = CPAP/PS MODEA) ABG TEMPERATURE (test code = 98.3 F TEMPA) ABG SITE (test code = SITEA) Art Line SHAYLA'S TEST (test code = N/A ALLENS) BASIC METABOLIC [id number] 07:46:00 Test Item Value Reference Range Interpretation Comments SODIUM (test code = NA/ABG) 147 mmol/L 134-147 N POTASSIUM (test code = K/ABG) 4.6 mmol/L 3.4-5.0 N CHLORIDE (test code = CL/ABG) 108 mmol/L 100-108 N CREATININE ABG (test code = 2.4 mg/dL 0.8-1.3 H CREAABG) POC IONIZED CALCIUM (test code = 1.19 MMOL/L 1.12-1.32 N POCCA) POC GLUCOSE (test code = POCGLU) 113 MG/DL 70-110 H HEMOGLOBIN [id number] 07:46:00 Test Item Value Reference Range Interpretation Comments HEMOGLOBIN ABG (test code = HGB/ABG) 7.8 G/DL 12.5-16.9 L [id number] 07:46:00 Test Item Value Reference Range Interpretation Comments HEMATOCRIT (test code = HCT/ABG) 23 % 37.5-50.7 L POC LACTIC [id number] 07:46:00 Test Item Value Reference Range Interpretation Comments POC LACTIC ACID (test code = 0.9 mmol/l 0.9-1.7 N POCLAC) POC ARTERIAL BLOOD [id number] 06:42:00 Test Item Value Reference Range Interpretation Comments POC ARTERIAL BLOOD GAS PH (test 7.322 7.35-7.45 L code = POCPHA) POC ARTERIAL BLOOD GAS PCO2 58.5 mmHg 35.0-45 HH (test code = FZVXDN2S) POC TCO2 ARTERIAL (test code = 32.1 POCTCO2) POC ARTERIAL BLOOD GAS PO2 (test 105.9 mmHg 80-100.0 H code = EJNJG7L) POC HCO3 ARTERIAL (test code = 30.3 MMOL/L 22.0-26.0 HH PCYCKN0C) POC BASE EXCESS (test code = 4.2 MMOL/L -4.0-4.0 H POCBEA) POC O2 SATURATION (test code = 97.4 % 90-100 N POCO2S) FIO2 (test code = FIO2A) 35 % PaO2/FiO2 (test code = OSB2BUS6) 302.57 mm/Hg ABG DELIVERY (test code = RCAIEL) BiPAP ABG VENT MODE (test code = 08/12 MODEA) ABG SITE (test code = SITEA) Art Line BASIC METABOLIC [id number] 06:42:00 Test Item Value Reference Range Interpretation Comments SODIUM (test code = NA/ABG) 147 mmol/L 134-147 N POTASSIUM (test code = K/ABG) 4.6 mmol/L 3.4-5.0 N CHLORIDE (test code = CL/ABG) 108 mmol/L 100-108 N CREATININE ABG (test code = 1.8 mg/dL 0.8-1.3 H CREAABG) POC IONIZED CALCIUM (test code = 1.22 MMOL/L 1.12-1.32 N POCCA) POC GLUCOSE (test code = POCGLU) 126 MG/DL 70-110 H HEMOGLOBIN [id number] 06:42:00 Test Item Value Reference Range Interpretation Comments HEMOGLOBIN ABG (test code = HGB/ABG) 7.1 G/DL 12.5-16.9 L [id number] 06:42:00 Test Item Value Reference Range Interpretation Comments HEMATOCRIT (test code = HCT/ABG) 21 % 37.5-50.7 L POC LACTIC [id number] 06:42:00 Test Item Value Reference Range Interpretation Comments POC LACTIC ACID (test code = 1.0 mmol/l 0.9-1.7 N POCLAC) POC ARTERIAL BLOOD [id number] 05:35:00 Test Item Value Reference Range Interpretation Comments POC ARTERIAL BLOOD GAS PH (test 7.259 7.35-7.45 LL code = POCPHA) POC ARTERIAL BLOOD GAS PCO2 66.1 mmHg 35.0-45 HH (test code = GQEBRG3O) POC TCO2 ARTERIAL (test code = 31.7 POCTCO2) POC ARTERIAL BLOOD GAS PO2 (test 106.5 mmHg 80-100.0 H code = VSYIW0V) POC HCO3 ARTERIAL (test code = 29.6 MMOL/L 22.0-26.0 HH [id number]) POC BASE EXCESS (test code = 2.5 MMOL/L -4.0-4.0 N POCBEA) POC O2 SATURATION (test code = 96.9 % 90-100 N POCO2S) FIO2 (test code = FIO2A) 40 % PaO2/FiO2 (test code = [id number]) 266.25 mm/Hg ABG DELIVERY (test code = RACIEL) BiPAP ABG VENT MODE (test code = 08/12 MODEA) ABG SITE (test code = SITEA) Art Line BASIC METABOLIC [id number] 05:35:00 Test Item Value Reference Range Interpretation Comments SODIUM (test code = NA/ABG) 145 mmol/L 134-147 N POTASSIUM (test code = K/ABG) 4.7 mmol/L 3.4-5.0 N CHLORIDE (test code = CL/ABG) 109 mmol/L 100-108 H CREATININE ABG (test code = 1.9 mg/dL 0.8-1.3 H CREAABG) POC IONIZED CALCIUM (test code = 1.23 MMOL/L 1.12-1.32 N POCCA) POC GLUCOSE (test code = POCGLU) 146 MG/DL 70-110 H HEMOGLOBIN [id number] 05:35:00 Test Item Value Reference Range Interpretation Comments HEMOGLOBIN ABG (test code = HGB/ABG) 7.4 G/DL 12.5-16.9 L [id number] 05:35:00 Test Item Value Reference Range Interpretation Comments HEMATOCRIT (test code = HCT/ABG) 22 % 37.5-50.7 L POC LACTIC [id number] 05:35:00 Test Item Value Reference Range Interpretation Comments POC LACTIC ACID (test code = 1.7 mmol/l 0.9-1.7 N POCLAC) POC ARTERIAL BLOOD [id number] 04:59:00 Test Item Value Reference Range Interpretation Comments POC ARTERIAL BLOOD GAS PH (test 7.218 7.35-7.45 LL code = POCPHA) POC ARTERIAL BLOOD GAS PCO2 (test 77.2 mmHg 35.0-45 HH code = VLLICH4M) POC TCO2 ARTERIAL (test code = 33.8 POCTCO2) POC ARTERIAL BLOOD GAS PO2 (test 103.7 mmHg 80-100.0 H code = YBQDQ4Z) POC HCO3 ARTERIAL (test code = 31.5 MMOL/L 22.0-26.0 HH [id number]) POC BASE EXCESS (test code = 3.7 MMOL/L -4.0-4.0 N POCBEA) POC O2 SATURATION (test code = 96.2 % 90-100 N POCO2S) ABG VENT MODE (test code = MODEA) 4L HFNC ABG SITE (test code = SITEA) Art Line BASIC METABOLIC [id number] 04:59:00 Test Item Value Reference Range Interpretation Comments SODIUM (test code = NA/ABG) 149 mmol/L 134-147 H POTASSIUM (test code = K/ABG) 4.7 mmol/L 3.4-5.0 N CHLORIDE (test code = CL/ABG) 108 mmol/L 100-108 N CREATININE ABG (test code = 2.1 mg/dL 0.8-1.3 H CREAABG) POC IONIZED CALCIUM (test code = 1.30 MMOL/L 1.12-1.32 N POCCA) POC GLUCOSE (test code = POCGLU) 126 MG/DL 70-110 H HEMOGLOBIN [id number] 04:59:00 Test Item Value Reference Range Interpretation Comments HEMOGLOBIN ABG (test code = HGB/ABG) 8.0 G/DL 12.5-16.9 L [id number] 04:59:00 Test Item Value Reference Range Interpretation Comments HEMATOCRIT (test code = HCT/ABG) 24 % 37.5-50.7 L POC LACTIC [id number] 04:59:00 Test Item Value Reference Range Interpretation Comments POC LACTIC ACID (test code = 2.0 mmol/l 0.9-1.7 H POCLAC) BASIC METABOLIC [id number] 02:47:00 Test Item Value Reference Range Interpretation Comments SODIUM (test code = 150 mEq/L 134-147 H NA) POTASSIUM (test code 4.4 mEq/L 3.4-5.0 N = K) CHLORIDE (test code 113 mEq/L 100-108 H = CL) CARBON DIOXIDE (test 30 mEq/l 21-33 N code = CO2) ANION GAP (test code 12 0-20 N = GAP) GLUCOSE (test code = 132 mg/dL 70-110 H GLU) BLOOD UREA NITROGEN 30 mg/dL 7-18 H (test code = BUN) GLOMERULAR 37.3 70-80 L The Glomerular FILTRATION RATE Filtration R ate is a (test code = GFR) calculated parameterbased on serum Creatinine, pat ient age and sex. GFR va luesless than 60 mL/min/ 1.73 square meters a re indicative ofCh ronic Kidney Disease. Values less than 15 mL/min/1.73squa re meters indicate Kidney failure. The calculation forGFR is based on the CKD-EPI (2020) calculat ion. This formulais race indifferent and is the recommended for nereida for GFRby the [facility] Found[facility] on for Adults.The GFR will not calculate if th e sex is unknown or if thepatient's ag e is <18 years. CREATININE (test 1.9 mg/dL 0.6-1.3 H code = CREAT) CALCIUM (test code = 9.3 mg/dL 8.0-10.5 N CA) COMMENTS: POD #1HEPATIC FUNCTION [id number] 02:47:00 Test Item Value Reference Range Interpretation Comments TOTAL PROTEIN (test code = PROT) 5.1 g/dL 6.4-8.2 L ALBUMIN (test code = ALB) 3.40 g/dL 3.4-5.0 N BILIRUBIN TOTAL (test code = BILT) 0.40 mg/dL 0.0-1.0 BILIRUBIN DIRECT (test code = 0.20 MG/DL 0.0-0.30 BILD) BILIRUBIN INDIRECT (test code = 0.20 MG/DL BILIND) SGOT/AST (test code = AST) 40 IUnit/L 15-37 H SGPT/ALT (test code = ALT) 13 IUnit/L 30-65 L ALKALINE PHOSPHATASE TOTAL (test 26 IUnit/L 20-125 N code = ALKP) COMMENTS: POD #[id number] 02:47:00 Test Item Value Reference Range Interpretation Comments MAGNESIUM (test code = MAG) 2.66 mg/dL 1.80-2.40 H COMMENTS: POD #1LACTIC ACID 2ND [id number] 02:43:00 Test Item Value Reference Range Interpretation Comments LACTIC ACID 2ND REPEAT (test code 2.4 mmol/L 0.4-1.9 H = LACT2) CBC W/AUTO [id number] 02:21:00 Test Item Value Reference Range Interpretation Comments WHITE BLOOD CELL (test code = 3.9 x10 3/uL 4.5-11.0 L WBC) RED BLOOD CELL (test code = 2.51 x10 6/uL 4.00-5.60 L RBC) HEMOGLOBIN (test code = HGB) 7.7 g/dL 12.5-16.9 L HEMATOCRIT (test code = HCT) 22.9 % 37.5-50.7 L MEAN CELL VOLUME (test code = 91.2 fL 81.0-99.0 N MCV) MEAN CELL HGB (test code = MCH) 30.7 pg 27.0-33.0 N MEAN CELL HGB CONCETRATION 33.6 g/dL 33.0-37.0 N (test code = MCHC) RED CELL DISTRIBUTION WIDTH CV 16.2 % 11.5-14.5 H (test code = RDW) RED CELL DISTRIBUTION WIDTH SD 53.5 fL 37.0-54.0 N (test code = RDW-SD) PLATELET COUNT (test code = 88 x10 3/uL 150-400 L PLT) MEAN PLATELET VOLUME (test code 11.0 fL 7.0-9.0 H = MPV) NEUTROPHIL % (test code = NT%) 86.9 % 56.0-77.0 H IMMATURE GRANULOCYTE % (test 0.5 % 0.0-2.0 N code = IG%) LYMPHOCYTE % (test code = LY%) 3.1 % 14.0-32.0 L MONOCYTE % (test code = MO%) 9.5 % 4.8-9.0 H EOSINOPHIL % (test code = EO%) 0.0 % 0.3-3.7 L BASOPHIL % (test code = BA%) 0.0 % 0.0-2.0 N NUCLEATED RBC % (test code = 0.0 % 0-0 N NRBC%) NEUTROPHIL # (test code = NT#) 3.39 x10 3/uL 2.0-7.6 N IMMATURE GRANULOCYTE # (test 0.02 x10 3/uL 0.00-0.03 N code = IG#) LYMPHOCYTE # (test code = LY#) 0.12 x10 3/uL 1.0-3.8 L MONOCYTE # (test code = MO#) 0.37 x10 3/uL 0.1-0.8 N EOSINOPHIL # (test code = EO#) 0.00 x10 3/uL 0.0-0.2 N BASOPHIL # (test code = BA#) 0.00 x10 3/uL 0.0-0.2 N NUCLEATED RBC # (test code = 0.00 x10 3/uL 0.0-0.1 N NRBC#) MANUAL DIFF REQUIRED (test code NO = MDIFF) POC ARTERIAL BLOOD [id number] 02:16:00 Test Item Value Reference Range Interpretation Comments POC ARTERIAL BLOOD GAS PH (test 7.312 7.35-7.45 L code = POCPHA) POC ARTERIAL BLOOD GAS PCO2 (test 65.1 mmHg 35.0-45 HH code = [id number]) POC TCO2 ARTERIAL (test code = 35.0 POCTCO2) POC ARTERIAL BLOOD GAS PO2 (test 97.2 mmHg 80-100.0 N code = FSVVD5S) POC HCO3 ARTERIAL (test code = 33.0 MMOL/L 22.0-26.0 HH [id number]) POC BASE EXCESS (test code = 6.7 MMOL/L -4.0-4.0 H POCBEA) POC O2 SATURATION (test code = 96.5 % 90-100 N POCO2S) ABG DELIVERY (test code = RACIEL) 4L HFNC ABG SITE (test code = SITEA) Art Line BASIC METABOLIC [id number] 02:16:00 Test Item Value Reference Range Interpretation Comments SODIUM (test code = NA/ABG) 147 mmol/L 134-147 N POTASSIUM (test code = K/ABG) 4.4 mmol/L 3.4-5.0 N CHLORIDE (test code = CL/ABG) 108 mmol/L 100-108 N CREATININE ABG (test code = 2.1 mg/dL 0.8-1.3 H CREAABG) POC IONIZED CALCIUM (test code = 1.33 MMOL/L 1.12-1.32 H POCCA) POC GLUCOSE (test code = POCGLU) 121 MG/DL 70-110 H HEMOGLOBIN [id number] 02:16:00 Test Item Value Reference Range Interpretation Comments HEMOGLOBIN ABG (test code = HGB/ABG) 7.2 G/DL 12.5-16.9 L [id number] 02:16:00 Test Item Value Reference Range Interpretation Comments HEMATOCRIT (test code = HCT/ABG) 21 % 37.5-50.7 L POC LACTIC [id number] 02:16:00 Test Item Value Reference Range Interpretation Comments POC LACTIC ACID (test code = 1.8 mmol/l 0.9-1.7 H POCLAC) LACTIC ACID [id number] 00:31:00 Test Item Value Reference Range Interpretation Comments LACTIC ACID REPEAT (test code = 4.2 mmol/l 0.4-1.9 HH LACTR) - XR ABDOMEN 1V (KUB)2023-03-05 00:00:00 [facility] : 1950 Sex: M FAX: Luci Wang [phone] [place]: St: ADM FAX: Emery Sheehan Jr [phone] ------- Name: TEVIN VAUGHAN [facility] : 1950 Age/S: 72/M [address] [place] [address] Blvd Unit #: [id number] Loc: G.[address] [place] [id number] Phys: Emery Sheehan Jr, MD Acct: [id number] Dis Date: Status: ADM IN PHONE #: [phone] Exam Date: 03/05/2023 0838 FAX #: [phone] Reason: ABD PAIN EXAMS: CPT CODE: [id number] XR ABDOMEN 1V (KUB) [id number] PROCEDURE INFORMATION: Exam: XR Abdomen Exam date and time: 03/05/2023 7:47 AM Age: 72 years old Clinical indication: Abdominal pain; Additional info: Abd pain TECHNIQUE: Imaging protocol: Radiologic exam of the abdomen. Views: Frontal supine view of the abdomen. 1 View. COMPARISON: CRXR CHEST 1V 03/05/2023 4:59 AM FINDINGS: Gastrointestinal tract: Nonobstructive small bowel gas pattern. Normal colonic gas and stool within the visualized portions. Bones/joints: Lumbar spine bony ankylosis. Bilateral sacroiliac joint fusion as well. Correlate clinically for underlying spondyloarthropathy. Soft tissues: No abnormal radiopaque densities. IMPRESSION: No pathologic bowel distention. at 0851 Reported and signed by: Davi Walton M.D. CC: Luci Villeda MD; Emery Sheehan Jr, MD Technologist: RT Ofe(R) Trnscrd Date/Time/By: 03/05/2023 (850) : By: [email or web address] Orig Print D/T: S: 03/05/2023 (0852) PAGE 1 Signed Report- XR CHEST 1 [id number] 00:00:00 [facility] : 1950 Sex: M FAX: Luci Wang [phone] [place]: St: ADM FAX: Evon Garcia Phy [phone] ----- Name: [facility] [place] : 1950 Age/S: 72/M [address] [place] [address] Unit #: [id number] Loc: [address] [place] [address] Phys: Evon Andrew Physic Acct: [id number] Dis Date: Status: ADM IN PHONE #: [phone] Exam Date: 03/05/2023500 FAX #: [phone] Reason: Cardiac Surgery Post Op EXAMS: CPT CODE: [id number] XR CHEST 1 V 28950 PROCEDURE INFORMATION: Exam: XR Chest Exam date and time: 03/05/2023 4:59 AM Age: 72 years old Clinical indication: Other: Cardiac surgery post op TECHNIQUE: Imaging protocol: Radiologic exam of the chest. Views: 1 view. COMPARISON: CR XR CHEST 1V 03/04/2023 6:11 PM FINDINGS: Tubes, catheters and devices: Mediastinal drain and left chest tube in place. Right IJ sheath with tip projecting in the SVC. Lungs: Unchanged mild bibasilar airspace disease. Pleural spaces: No pleural effusion. No pneumothorax. Heart/Mediastinum: Unchanged cardiomediastinal silhouette. Bones/joints: Median sternotomy changes. IMPRESSION: 1. Unchanged mild bibasilar airspace disease. 2. Lines and tubes, as above. at 0826 Reported andsigned by: Margarito Borges M.D. CC: Luci Villeda MD; Evon Andrew Technologist: RT Lelia(R) Trnscrd Date/Time/By: 03/05/2023 (0826) : By: [email or web address] Orig Print D/T: S: 03/05/2023 (9007) PAGE 1 Signed ReportPOC ARTERIAL BLOOD [id number] 23:12:00 Test Item Value Reference Range Interpretation Comments POC ARTERIAL BLOOD GAS PH (test 7.328 7.35-7.45 L code = POCPHA) POC ARTERIAL BLOOD GAS PCO2 (test 53.9 mmHg 35.0-45 HH code = [id number]) POC TCO2 ARTERIAL (test code = 30.2 POCTCO2) POC ARTERIAL BLOOD GAS PO2 (test 72.6 mmHg 80-100.0 L code = [id number]) POC HCO3 ARTERIAL (test code = 28.5 MMOL/L 22.0-26.0 HH [id number]) POC BASE EXCESS (test code = 2.4 MMOL/L -4.0-4.0 N POCBEA) POC O2 SATURATION (test code = 93.3 % 90-100 N POCO2S) ABG DELIVERY (test code = RACIEL) 4L HFNC ABG TEMPERATURE (test code = 97.7 F TEMPA) ABG SITE (test code = SITEA) Art Line [id number] 23:12:00 Test Item Value Reference Range Interpretation Comments SODIUM (test code = NA/ABG) 148 mmol/L 134-147 H [id number] 23:12:00 Test Item Value Reference Range Interpretation Comments POTASSIUM (test code = K/ABG) 3.9 mmol/L 3.4-5.0 N [id number] 23:12:00 Test Item Value Reference Range Interpretation Comments CHLORIDE (test code = CL/ABG) 108 mmol/L 100-108 N CREATININE [id number] 23:12:00 Test Item Value Reference Range Interpretation Comments CREATININE ABG (test code = 1.6 mg/dL 0.8-1.3 H CREAABG) HEMOGLOBIN [id number] 23:12:00 Test Item Value Reference Range Interpretation Comments HEMOGLOBIN ABG (test code = HGB/ABG) 7.4 G/DL 12.5-16.9 L [id number] 23:12:00 Test Item Value Reference Range Interpretation Comments HEMATOCRIT (test code = HCT/ABG) 22 % 37.5-50.7 L POC LACTIC [id number] 23:12:00 Test Item Value Reference Range Interpretation Comments POC LACTIC ACID (test code = 4.3 mmol/l 0.9-1.7 HH POCLAC) POC [id number] 23:12:00 Test Item Value Reference Range Interpretation Comments POC GLUCOSE (test code = POCGLU) 178 MG/DL 70-110 H CBC W/AUTO [id number] 22:39:00 Test Item Value Reference Range Interpretation Comments WHITE BLOOD CELL (test code = 5.2 x10 3/uL 4.5-11.0 WBC) RED BLOOD CELL (test code = 2.80 x10 6/uL 4.00-5.60 L RBC) HEMOGLOBIN (test code = HGB) 8.6 g/dL 12.5-16.9 L HEMATOCRIT (test code = HCT) 25.4 % 37.5-50.7 L MEAN CELL VOLUME (test code = 90.7 fL 81.0-99.0 MCV) MEAN CELL HGB (test code = MCH) 30.7 pg 27.0-33.0 N MEAN CELL HGB CONCETRATION 33.9 g/dL 33.0-37.0 N (test code = MCHC) RED CELL DISTRIBUTION WIDTH CV 15.6 % 11.5-14.5 H (test code = RDW) RED CELL DISTRIBUTION WIDTH SD 51.9 fL 37.0-54.0 N (test code = RDW-SD) PLATELET COUNT (test code = 92 x10 3/uL 150-400 L PLT) MEAN PLATELET VOLUME (test code 10.8 fL 7.0-9.0 H = MPV) NEUTROPHIL % (test code = NT%) 86.5 % 56.0-77.0 H IMMATURE GRANULOCYTE % (test 1.3 % 0.0-2.0 N code = IG%) LYMPHOCYTE % (test code = LY%) 3.3 % 14.0-32.0 L MONOCYTE % (test code = MO%) 8.7 % 4.8-9.0 N EOSINOPHIL % (test code = EO%) 0.0 % 0.3-3.7 L BASOPHIL % (test code = BA%) 0.2 % 0.0-2.0 N NUCLEATED RBC % (test code = 0.0 % 0-0 N NRBC%) NEUTROPHIL # (test code = NT#) 4.49 x10 3/uL 2.0-7.6 N IMMATURE GRANULOCYTE # (test 0.07 x10 3/uL 0.00-0.03 H code = IG#) LYMPHOCYTE # (test code = LY#) 0.17 x10 3/uL 1.0-3.8 L MONOCYTE # (test code = MO#) 0.45 x10 3/uL 0.1-0.8 N EOSINOPHIL # (test code = EO#) 0.00 x10 3/uL 0.0-0.2 N BASOPHIL # (test code = BA#) 0.01 x10 3/uL 0.0-0.2 N NUCLEATED RBC # (test code = 0.00 x10 3/uL 0.0-0.1 N NRBC#) MANUAL DIFF REQUIRED (test code NO = MDIFF) PLT [id number] 22:39:00 Test Item Value Reference Range Interpretation Comments PLATELET ESTIMATE (test code 140-175 THOUSAND ADEQUATE = PLTEST) PLATELET MORPHOLOGY (test NORMAL code = PLTMORPH) BASIC METABOLIC [id number] 22:10:00 Test Item Value Reference Range Interpretation Comments SODIUM (test code = 151 mEq/L 134-147 H NA) POTASSIUM (test code 4.1 mEq/L 3.4-5.0 = K) CHLORIDE (test code 110 mEq/L 100-108 H = CL) CARBON DIOXIDE (test 27 mEq/l 21-33 N code = CO2) ANION GAP (test code 18 0-20 N = GAP) GLUCOSE (test code = 212 mg/dL 70-110 H GLU) BLOOD UREA NITROGEN 29 mg/dL 7-18 H (test code = BUN) GLOMERULAR 39.7 70-80 L The Glomerular FILTRATION RATE Filtration R ate is a (test code = GFR) calculated parameterbased on serum Creatinine, pat ient age and sex. GFR va luesless than 60 mL/min/ 1.73 square meters a re indicative ofCh ronic Kidney Disease. Values less than 15 mL/min/1.73squa re meters indicate Kidney failure. The calculation forGFR is based on the CKD-EPI (2020) calculat ion. This formulais race indifferent and is the recommended for nereida for GFRby the Natio nal Kidney Foundati on for Adults.The GFR will not calculate if th e sex is unknown or if thepatient's ag e is <18 years. CREATININE (test 1.8 mg/dL 0.6-1.3 H code = CREAT) CALCIUM (test code = 7.6 mg/dL 8.0-10.5 L CA) HEPATIC FUNCTION [id number] 22:10:00 Test Item Value Reference Range Interpretation Comments TOTAL PROTEIN (test code = PROT) 4.8 g/dL 6.4-8.2 L ALBUMIN (test code = ALB) 2.80 g/dL 3.4-5.0 L BILIRUBIN TOTAL (test code = BILT) 0.70 mg/dL 0.0-1.0 BILIRUBIN DIRECT (test code = 0.40 MG/DL 0.0-0.30 H BILD) SGOT/AST (test code = AST) 40 IUnit/L 15-37 H SGPT/ALT (test code = ALT) 11 IUnit/L 30-65 L ALKALINE PHOSPHATASE TOTAL (test 28 IUnit/L 20-125 N code = ALKP) BILIRUBIN INDIRECT (test code = 0.30 MG/DL BILIND) CALCIUM [id number] 22:10:00 Test Item Value Reference Range Interpretation Comments CALCIUM IONIZED (test code = BIBIANA) 0.95 MMOL/L 1.09-1.30 L LACTIC [id number] 22:03:00 Test Item Value Reference Range Interpretation Comments LACTIC ACID (test 8.6 mmol/L 0.4-1.9 HH Critical r esult called code = LACT) to RAJ FordLAB.JN1 at 30 1003/04/23Nheath r vicenta back result and tech confirmed it's correct? Y POC ARTERIAL BLOOD [id number] 21:10:00 Test Item Value Reference Range Interpretation Comments POC ARTERIAL BLOOD GAS PH (test 7.337 7.35-7.45 L code = POCPHA) POC ARTERIAL BLOOD GAS PCO2 49.8 mmHg 35.0-45 H (test code = PQUTPP1M) POC TCO2 ARTERIAL (test code = 28.7 POCTCO2) POC ARTERIAL BLOOD GAS PO2 (test 80.9 mmHg 80-100.0 N code = UBUVK7T) POC HCO3 ARTERIAL (test code = 27.1 MMOL/L 22.0-26.0 H [id number]) POC BASE EXCESS (test code = 1.0 MMOL/L -4.0-4.0 N POCBEA) POC O2 SATURATION (test code = 95.7 % 90-100 N POCO2S) FIO2 (test code = FIO2A) 40 % PaO2/FiO2 (test code = [id number]) 202.25 mm/Hg ABG DELIVERY (test code = RACIEL) Adult Vent ABG VENT MODE (test code = SPONT MODEA) ABG PEEP (test code = PEEPA) 5 cmH2O ABG PRESSURE SUPPORT (test code 20 cmH2O = PSABG) ABG TEMPERATURE (test code = 96.1 F TEMPA) ABG SITE (test code = SITEA) Art Line BASIC METABOLIC [id number] 21:10:00 Test Item Value Reference Range Interpretation Comments SODIUM (test code = NA/ABG) 148 mmol/L 134-147 H POTASSIUM (test code = K/ABG) 4.0 mmol/L 3.4-5.0 N CHLORIDE (test code = CL/ABG) 108 mmol/L 100-108 N CREATININE ABG (test code = 1.8 mg/dL 0.8-1.3 H CREAABG) POC IONIZED CALCIUM (test code = 1.10 MMOL/L 1.12-1.32 L POCCA) POC GLUCOSE (test code = POCGLU) 214 MG/DL 70-110 H HEMOGLOBIN [id number] 21:10:00 Test Item Value Reference Range Interpretation Comments HEMOGLOBIN ABG (test code = HGB/ABG) 7.9 G/DL 12.5-16.9 L [id number] 21:10:00 Test Item Value Reference Range Interpretation Comments HEMATOCRIT (test code = HCT/ABG) 23 % 37.5-50.7 L POC LACTIC [id number] 21:10:00 Test Item Value Reference Range Interpretation Comments POC LACTIC ACID (test code = 6.5 mmol/l 0.9-1.7 HH POCLAC) POC ARTERIAL BLOOD [id number] 20:29:00 Test Item Value Reference Range Interpretation Comments POC ARTERIAL BLOOD GAS PH (test 7.342 7.35-7.45 L code = POCPHA) POC ARTERIAL BLOOD GAS PCO2 50.2 mmHg 35.0-45 HH (test code = [id number]) POC TCO2 ARTERIAL (test code = 28.7 POCTCO2) POC ARTERIAL BLOOD GAS PO2 (test 382.6 mmHg 80-100.0 HH code = WTQJD2M) POC HCO3 ARTERIAL (test code = 27.2 MMOL/L 22.0-26.0 H [id number]) POC BASE EXCESS (test code = 1.5 MMOL/L -4.0-4.0 N POCBEA) POC O2 SATURATION (test code = 99.9 % 90-100 N POCO2S) FIO2 (test code = FIO2A) 100 % PaO2/FiO2 (test code = [id number]) 382.60 mm/Hg ABG VENT MODE (test code = AC MODEA) ABG SITE (test code = SITEA) Art Line BASIC METABOLIC [id number] 20:29:00 Test Item Value Reference Range Interpretation Comments SODIUM (test code = NA/ABG) 146 mmol/L 134-147 N POTASSIUM (test code = K/ABG) 3.7 mmol/L 3.4-5.0 N CHLORIDE (test code = CL/ABG) 105 mmol/L 100-108 N CREATININE ABG (test code = 0.9 mg/dL 0.8-1.3 CREAABG) POC IONIZED CALCIUM (test code = 1.10 MMOL/L 1.12-1.32 L POCCA) POC GLUCOSE (test code = POCGLU) 219 MG/DL 70-110 H HEMOGLOBIN [id number] 20:29:00 Test Item Value Reference Range Interpretation Comments HEMOGLOBIN ABG (test code = HGB/ABG) 7.7 G/DL 12.5-16.9 L [id number] 20:29:00 Test Item Value Reference Range Interpretation Comments HEMATOCRIT (test code = HCT/ABG) 23 % 37.5-50.7 L POC LACTIC [id number] 20:29:00 Test Item Value Reference Range Interpretation Comments POC LACTIC ACID (test code = 5.0 mmol/l 0.9-1.7 HH POCLAC) POC ARTERIAL BLOOD [id number] 19:38:00 Test Item Value Reference Range Interpretation Comments POC ARTERIAL BLOOD GAS PH (test 7.204 7.35-7.45 LL code = POCPHA) POC ARTERIAL BLOOD GAS PCO2 50.2 mmHg 35.0-45 HH (test code = [id number]) POC TCO2 ARTERIAL (test code = 21.3 POCTCO2) POC ARTERIAL BLOOD GAS PO2 (test 125.4 mmHg 80-100.0 H code = QJDEM9S) POC HCO3 ARTERIAL (test code = 19.8 MMOL/L 22.0-26.0 L [id number]) POC BASE EXCESS (test code = -8.2 MMOL/L -4.0-4.0 L POCBEA) POC O2 SATURATION (test code = 97.9 % 90-100 N POCO2S) FIO2 (test code = FIO2A) 40 % PaO2/FiO2 (test code = [id number]) 313.50 mm/Hg ABG DELIVERY (test code = RACIEL) Adult Vent ABG VENT RESP RATE (test code = 18 /MIN RRA) ABG TIDAL VOLUME (test code = 480 ml TVA) ABG PEEP (test code = PEEPA) 5 cmH2O ABG SITE (test code = SITEA) Art Line BASIC METABOLIC [id number] 19:38:00 Test Item Value Reference Range Interpretation Comments SODIUM (test code = NA/ABG) 140 mmol/L 134-147 N POTASSIUM (test code = K/ABG) 3.5 mmol/L 3.4-5.0 N CHLORIDE (test code = CL/ABG) 108 mmol/L 100-108 N CREATININE ABG (test code = 1.2 mg/dL 0.8-1.3 N CREAABG) POC IONIZED CALCIUM (test code = 1.21 MMOL/L 1.12-1.32 N POCCA) POC GLUCOSE (test code = POCGLU) 223 MG/DL 70-110 H HEMOGLOBIN [id number] 19:38:00 Test Item Value Reference Range Interpretation Comments HEMOGLOBIN ABG (test code = HGB/ABG) 7.8 G/DL 12.5-16.9 L [id number] 19:38:00 Test Item Value Reference Range Interpretation Comments HEMATOCRIT (test code = HCT/ABG) 23 % 37.5-50.7 L POC LACTIC [id number] 19:38:00 Test Item Value Reference Range Interpretation Comments POC LACTIC ACID (test code = 3.9 mmol/l 0.9-1.7 H POCLAC) BASIC METABOLIC [id number] 18:27:00 Test Item Value Reference Range Interpretation Comments SODIUM (test code = 143 mEq/L 134-147 N NA) POTASSIUM (test code 3.3 mEq/L 3.4-5.0 L = K) CHLORIDE (test code 110 mEq/L 100-108 H = CL) CARBON DIOXIDE (test 22 mEq/l 21-33 N code = CO2) ANION GAP (test code 14 0-20 N = GAP) GLUCOSE (test code = 225 mg/dL 70-110 H GLU) BLOOD UREA NITROGEN 37 mg/dL 7-18 H (test code = BUN) GLOMERULAR 42.6 70-80 L The Glomerular FILTRATION RATE Filtration R ate is a (test code = GFR) calculated parameterbased on serum Creatinine, pat ient age and sex. GFR va luesless than 60 mL/min/ 1.73 square meters a re indicative ofCh ronic Kidney Disease. Values less than 15 mL/min/1.73squa re meters indicate Kidney failure. The calculation forGFR is based on the CKD-EPI (2020) calculat ion. This formulais race indifferent and is the recommended for nereida for GFRby the Natio nal Kidney Foundati on for Adults.The GFR will not calculate if th e sex is unknown or if thepatient's ag e is <18 years. CREATININE (test 1.7 mg/dL 0.6-1.3 H code = CREAT) CALCIUM (test code = 8.3 mg/dL 8.0-10.5 N CA) COMMENTS: On arrivalComment: On [id number] 18:27:00 Test Item Value Reference Range Interpretation Comments MAGNESIUM (test code = MAG) 2.98 mg/dL 1.80-2.40 H COMMENTS: On arrivalComment: On arrivalPROTHROMBIN [id number] 18:19:00 Test Item Value Reference Range Interpretation Comments PROTHROMBIN TIME 16.4 SECONDS 9.3-12.9 H PATIENT (test code = PTP) INTERNATIONAL NORMAL 1.5 0.8-1.2 H TARGET INR BY RATIO (test code = INDICATIO N Indication INR) INR1. Prophylax is of venous thrombos is 2.0 - 3.0 (orthoped ic surgery), Proph ylaxis of venous throm bosis (other than hig h-risk surgery), Treat ment of Deep Vein Thrombosis/Pulm onary Embolism, Preve ntion of systemic emb olism - Tissue heart va lves, Acute Myocardia l Infarction (to prevent systemic emboli sm), Valvular heart disease, Atrial Fibrillation, Bileaflet mecha nical valve in aortic position.2. Mec hanical prosthetic valv es (high risk), 2. 5 - 3.5 Presence of Lup us Anticoagulant o r Antiphospholipi d Antibodies, Pre vention of systemic emb olism - Acute Myocardia l Infarction (to prevent recurrent infar ct). COMMENTS: On arrivalTHROMBOPLASTIN TIME [id number] 18:19:00 Test Item Value Reference Range Interpretation Comments THROMBOPLASTIN TIME 30.8 Seconds 25.0-39.5 Therape utic Range: PARTIAL (test code = 50.4 - 88.3 Seconds PTT) Effective 12/22/2018 COMMENTS: On arrivalCBC W/AUTO [id number] 18:18:00 Test Item Value Reference Range Interpretation Comments WHITE BLOOD CELL (test code = 9.1 x10 3/uL 4.5-11.0 WBC) RED BLOOD CELL (test code = 2.46 x10 6/uL 4.00-5.60 L RBC) HEMOGLOBIN (test code = HGB) 7.5 g/dL 12.5-16.9 L HEMATOCRIT (test code = HCT) 23.3 % 37.5-50.7 L MEAN CELL VOLUME (test code = 94.7 fL 81.0-99.0 N MCV) MEAN CELL HGB (test code = MCH) 30.5 pg 27.0-33.0 N MEAN CELL HGB CONCETRATION 32.2 g/dL 33.0-37.0 L (test code = MCHC) RED CELL DISTRIBUTION WIDTH CV 14.4 % 11.5-14.5 N (test code = RDW) RED CELL DISTRIBUTION WIDTH SD 50.0 fL 37.0-54.0 N (test code = RDW-SD) PLATELET COUNT (test code = 109 x10 3/uL 150-400 L PLT) MEAN PLATELET VOLUME (test code 10.8 fL 7.0-9.0 H = MPV) NEUTROPHIL % (test code = NT%) 84.1 % 56.0-77.0 H IMMATURE GRANULOCYTE % (test 1.0 % 0.0-2.0 N code = IG%) LYMPHOCYTE % (test code = LY%) 6.5 % 14.0-32.0 L MONOCYTE % (test code = MO%) 8.1 % 4.8-9.0 N EOSINOPHIL % (test code = EO%) 0.2 % 0.3-3.7 L BASOPHIL % (test code = BA%) 0.1 % 0.0-2.0 N NUCLEATED RBC % (test code = 0.0 % 0-0 N NRBC%) NEUTROPHIL # (test code = NT#) 7.61 x10 3/uL 2.0-7.6 H IMMATURE GRANULOCYTE # (test 0.09 x10 3/uL 0.00-0.03 H code = IG#) LYMPHOCYTE # (test code = LY#) 0.59 x10 3/uL 1.0-3.8 L MONOCYTE # (test code = MO#) 0.73 x10 3/uL 0.1-0.8 N EOSINOPHIL # (test code = EO#) 0.02 x10 3/uL 0.0-0.2 N BASOPHIL # (test code = BA#) 0.01 x10 3/uL 0.0-0.2 N NUCLEATED RBC # (test code = 0.00 x10 3/uL 0.0-0.1 N NRBC#) MANUAL DIFF REQUIRED (test code NO = MDIFF) [facility] [id number] 18:02:00 Test Item Value Reference Range Interpretation Comments POC ARTERIAL BLOOD GAS PH (test 7.280 7.35-7.45 LL code = POCPHA) POC ARTERIAL BLOOD GAS PCO2 43.0 mmHg 35.0-45 N (test code = QHPUAU0F) POC TCO2 ARTERIAL (test code = 21.5 POCTCO2) POC ARTERIAL BLOOD GAS PO2 (test 175.5 mmHg 80-100.0 H code = XPKHJ7K) POC HCO3 ARTERIAL (test code = 20.2 MMOL/L 22.0-26.0 L [id number]) POC BASE EXCESS (test code = -6.5 MMOL/L -4.0-4.0 L POCBEA) POC O2 SATURATION (test code = 99.4 % 90-100 N POCO2S) FIO2 (test code = FIO2A) 50 % PaO2/FiO2 (test code = [id number]) 351.00 mm/Hg ABG DELIVERY (test code = RACIEL) Adult Vent ABG VENT MODE (test code = AC MODEA) ABG VENT RESP RATE (test code = 18 /MIN RRA) ABG TIDAL VOLUME (test code = 480 ml TVA) ABG PEEP (test code = PEEPA) 5 cmH2O ABG SITE (test code = SITEA) Art Line SHAYLA'S TEST (test code = N/A ALLENS) BASIC METABOLIC [id number] 18:02:00 Test Item Value Reference Range Interpretation Comments SODIUM (test code = NA/ABG) 141 mmol/L 134-147 N POTASSIUM (test code = K/ABG) 3.3 mmol/L 3.4-5.0 L CHLORIDE (test code = CL/ABG) 107 mmol/L 100-108 N CREATININE ABG (test code = 1.5 mg/dL 0.8-1.3 H CREAABG) POC IONIZED CALCIUM (test code = 1.21 MMOL/L 1.12-1.32 N POCCA) POC GLUCOSE (test code = POCGLU) 230 MG/DL 70-110 H HEMOGLOBIN [id number] 18:02:00 Test Item Value Reference Range Interpretation Comments HEMOGLOBIN ABG (test code = HGB/ABG) 6.9 G/DL 12.5-16.9 L [id number] 18:02:00 Test Item Value Reference Range Interpretation Comments HEMATOCRIT (test code = HCT/ABG) 20 % 37.5-50.7 L POC ARTERIAL BLOOD [id number] 17:38:00 Test Item Value Reference Range Interpretation Comments POC ARTERIAL BLOOD GAS PH (test 7.323 7.35-7.45 L code = POCPHA) POC ARTERIAL BLOOD GAS PCO2 (test 41.3 mmHg 35.0-45 N code = [id number]) POC TCO2 ARTERIAL (test code = 22.7 POCTCO2) POC ARTERIAL BLOOD GAS PO2 (test 402.1 mmHg 80-100.0 HH code = AMICK6T) POC HCO3 ARTERIAL (test code = 21.4 MMOL/L 22.0-26.0 L [id number]) POC BASE EXCESS (test code = -4.4 MMOL/L -4.0-4.0 L POCBEA) POC O2 SATURATION (test code = 100.0 % 90-100 N POCO2S) BASIC METABOLIC [id number] 17:38:00 Test Item Value Reference Range Interpretation Comments SODIUM (test code = NA/ABG) 143 mmol/L 134-147 N POTASSIUM (test code = K/ABG) 3.3 mmol/L 3.4-5.0 L CHLORIDE (test code = CL/ABG) 109 mmol/L 100-108 H CREATININE ABG (test code = 1.4 mg/dL 0.8-1.3 H CREAABG) POC IONIZED CALCIUM (test code = 1.22 MMOL/L 1.12-1.32 N POCCA) POC GLUCOSE (test code = POCGLU) 196 MG/DL 70-110 H HEMOGLOBIN [id number] 17:38:00 Test Item Value Reference Range Interpretation Comments HEMOGLOBIN ABG (test code = HGB/ABG) 8.3 G/DL 12.5-16.9 L [id number] 17:38:00 Test Item Value Reference Range Interpretation Comments HEMATOCRIT (test code = HCT/ABG) 25 % 37.5-50.7 L POC LACTIC [id number] 17:38:00 Test Item Value Reference Range Interpretation Comments POC LACTIC ACID (test code = 3.2 mmol/l 0.9-1.7 H POCLAC) [id number] 17:35:00 Test Item Value Reference Range Interpretation Comments ACT-ISTAT (test code 149 SEC 74-137 H Perform ed by certified = ACTI) 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 [facility] [id number] 16:46:00 Test Item Value Reference Range Interpretation Comments ACT-ISTAT (test code 630 SEC 74-137 H Perform ed by certified = ACTI) 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 [facility] POC ARTERIAL BLOOD [id number] 16:38:00 Test Item Value Reference Range Interpretation Comments POC ARTERIAL BLOOD GAS PH (test 7.383 7.35-7.45 N code = POCPHA) POC ARTERIAL BLOOD GAS PCO2 (test 39.4 mmHg 35.0-45 N code = [id number]) POC TCO2 ARTERIAL (test code = 24.7 POCTCO2) POC ARTERIAL BLOOD GAS PO2 (test 405.8 mmHg 80-100.0 HH code = DASUL9F) POC HCO3 ARTERIAL (test code = 23.5 MMOL/L 22.0-26.0 N [id number]) POC BASE EXCESS (test code = -1.5 MMOL/L -4.0-4.0 N POCBEA) POC O2 SATURATION (test code = 100.0 % 90-100 N POCO2S) BASIC METABOLIC [id number] 16:38:00 Test Item Value Reference Range Interpretation Comments SODIUM (test code = NA/ABG) 139 mmol/L 134-147 N POTASSIUM (test code = K/ABG) 4.6 mmol/L 3.4-5.0 N CHLORIDE (test code = CL/ABG) 106 mmol/L 100-108 N CREATININE ABG (test code = 1.4 mg/dL 0.8-1.3 H CREAABG) POC IONIZED CALCIUM (test code = 1.08 MMOL/L 1.12-1.32 L POCCA) POC GLUCOSE (test code = POCGLU) 232 MG/DL 70-110 H HEMOGLOBIN [id number] 16:38:00 Test Item Value Reference Range Interpretation Comments HEMOGLOBIN ABG (test code = HGB/ABG) 6.2 G/DL 12.5-16.9 L [id number] 16:38:00 Test Item Value Reference Range Interpretation Comments HEMATOCRIT (test code = HCT/ABG) 18 % 37.5-50.7 L POC LACTIC [id number] 16:38:00 Test Item Value Reference Range Interpretation Comments POC LACTIC ACID (test code = 2.0 mmol/l 0.9-1.7 H POCLAC) [id number] 16:29:00 Test Item Value Reference Range Interpretation Comments ACT-ISTAT (test code 756 SEC 74-137 H Perform ed by certified = ACTI) 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 [facility] POC ARTERIAL BLOOD [id number] 16:13:00 Test Item Value Reference Range Interpretation Comments POC ARTERIAL BLOOD GAS PH (test 7.382 7.35-7.45 N code = POCPHA) POC ARTERIAL BLOOD GAS PCO2 (test 40.6 mmHg 35.0-45 N code = PBSDMN0E) POC TCO2 ARTERIAL (test code = 25.3 POCTCO2) POC ARTERIAL BLOOD GAS PO2 (test 476.4 mmHg 80-100.0 HH code = ILYTB1R) POC HCO3 ARTERIAL (test code = 24.1 MMOL/L 22.0-26.0 N [id number]) POC BASE EXCESS (test code = -0.9 MMOL/L -4.0-4.0 N POCBEA) POC O2 SATURATION (test code = 100.0 % 90-100 N POCO2S) BASIC METABOLIC [id number] 16:13:00 Test Item Value Reference Range Interpretation Comments SODIUM (test code = NA/ABG) 140 mmol/L 134-147 N POTASSIUM (test code = K/ABG) 4.4 mmol/L 3.4-5.0 N CHLORIDE (test code = CL/ABG) 108 mmol/L 100-108 N CREATININE ABG (test code = 1.4 mg/dL 0.8-1.3 H CREAABG) POC IONIZED CALCIUM (test code = 1.07 MMOL/L 1.12-1.32 L POCCA) POC GLUCOSE (test code = POCGLU) 245 MG/DL 70-110 H HEMOGLOBIN [id number] 16:13:00 Test Item Value Reference Range Interpretation Comments HEMOGLOBIN ABG (test code = HGB/ABG) 6.7 G/DL 12.5-16.9 L [id number] 16:13:00 Test Item Value Reference Range Interpretation Comments HEMATOCRIT (test code = HCT/ABG) 20 % 37.5-50.7 L POC LACTIC [id number] 16:13:00 Test Item Value Reference Range Interpretation Comments POC LACTIC ACID (test code = 1.7 mmol/l 0.9-1.7 N POCLAC) [id number] 15:57:00 Test Item Value Reference Range Interpretation Comments ACT-ISTAT (test code 967 SEC 74-137 H Perform ed by certified = ACTI) 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 [facility] POC LACTIC [id number] 15:39:00 Test Item Value Reference Range Interpretation Comments POC LACTIC ACID (test code = 0.6 mmol/l 0.9-1.7 L POCLAC) POC ARTERIAL BLOOD [id number] 15:39:00 Test Item Value Reference Range Interpretation Comments POC ARTERIAL BLOOD GAS PH (test 7.367 7.35-7.45 N code = POCPHA) POC ARTERIAL BLOOD GAS PCO2 (test 43.1 mmHg 35.0-45 N code = [id number]) POC TCO2 ARTERIAL (test code = 26.1 POCTCO2) POC ARTERIAL BLOOD GAS PO2 (test 489.2 mmHg 80-100.0 HH code = SZOPM1R) POC HCO3 ARTERIAL (test code = 24.7 MMOL/L 22.0-26.0 N [id number]) POC BASE EXCESS (test code = -0.6 MMOL/L -4.0-4.0 N POCBEA) POC O2 SATURATION (test code = 100.0 % 90-100 N POCO2S) BASIC METABOLIC [id number] 15:39:00 Test Item Value Reference Range Interpretation Comments SODIUM (test code = NA/ABG) 140 mmol/L 134-147 N POTASSIUM (test code = K/ABG) 4.5 mmol/L 3.4-5.0 N CHLORIDE (test code = CL/ABG) 106 mmol/L 100-108 N CREATININE ABG (test code = 1.3 mg/dL 0.8-1.3 N CREAABG) POC IONIZED CALCIUM (test code = 1.02 MMOL/L 1.12-1.32 L POCCA) POC GLUCOSE (test code = POCGLU) 241 MG/DL 70-110 H HEMOGLOBIN [id number] 15:39:00 Test Item Value Reference Range Interpretation Comments HEMOGLOBIN ABG (test code = HGB/ABG) 6.6 G/DL 12.5-16.9 L [id number] 15:39:00 Test Item Value Reference Range Interpretation Comments HEMATOCRIT (test code = HCT/ABG) 20 % 37.5-50.7 L [id number] 15:19:00 Test Item Value Reference Range Interpretation Comments ACT-ISTAT (test code 834 SEC 74-137 H Perform ed by certified = ACTI) 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 [facility] POC ARTERIAL BLOOD [id number] 15:08:00 Test Item Value Reference Range Interpretation Comments POC ARTERIAL BLOOD GAS PH (test 7.221 7.35-7.45 LL code = POCPHA) POC ARTERIAL BLOOD GAS PCO2 (test 56.0 mmHg 35.0-45 HH code = [id number]) POC TCO2 ARTERIAL (test code = 24.7 POCTCO2) POC ARTERIAL BLOOD GAS PO2 (test 497.4 mmHg 80-100.0 HH code = [id number]) POC HCO3 ARTERIAL (test code = 23.0 MMOL/L 22.0-26.0 N [id number]) POC BASE EXCESS (test code = -4.8 MMOL/L -4.0-4.0 L POCBEA) POC O2 SATURATION (test code = 100.0 % 90-100 N POCO2S) BASIC METABOLIC [id number] 15:08:00 Test Item Value Reference Range Interpretation Comments SODIUM (test code = NA/ABG) 141 mmol/L 134-147 N POTASSIUM (test code = K/ABG) 3.4 mmol/L 3.4-5.0 N CHLORIDE (test code = CL/ABG) 109 mmol/L 100-108 H CREATININE ABG (test code = 1.2 mg/dL 0.8-1.3 N CREAABG) POC IONIZED CALCIUM (test code = 1.15 MMOL/L 1.12-1.32 N POCCA) POC GLUCOSE (test code = POCGLU) 271 MG/DL 70-110 H HEMOGLOBIN [id number] 15:08:00 Test Item Value Reference Range Interpretation Comments HEMOGLOBIN ABG (test code = HGB/ABG) 8.8 G/DL 12.5-16.9 L [id number] 15:08:00 Test Item Value Reference Range Interpretation Comments HEMATOCRIT (test code = HCT/ABG) 26 % 37.5-50.7 L POC LACTIC [id number] 15:08:00 Test Item Value Reference Range Interpretation Comments POC LACTIC ACID (test code = < 0.3 mmol/l 0.9-1.7 L POCLAC) [id number] 12:33:00 Test Item Value Reference Range Interpretation Comments ACT-ISTAT (test code 179 SEC 74-137 H Perform ed by certified = ACTI) 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 [facility] POC ARTERIAL BLOOD [id number] 12:31:00 Test Item Value Reference Range Interpretation Comments POC ARTERIAL BLOOD GAS PH (test 7.390 7.35-7.45 N code = POCPHA) POC ARTERIAL BLOOD GAS PCO2 (test 36.7 mmHg 35.0-45 N code = [id number]) POC TCO2 ARTERIAL (test code = 23.3 POCTCO2) POC ARTERIAL BLOOD GAS PO2 (test 449.5 mmHg 80-100.0 HH code = [id number]) POC HCO3 ARTERIAL (test code = 22.2 MMOL/L 22.0-26.0 N [id number]) POC BASE EXCESS (test code = -2.4 MMOL/L -4.0-4.0 N POCBEA) POC O2 SATURATION (test code = 100.0 % 90-100 N POCO2S) BASIC METABOLIC [id number] 12:31:00 Test Item Value Reference Range Interpretation Comments SODIUM (test code = NA/ABG) 140 mmol/L 134-147 N POTASSIUM (test code = K/ABG) 4.4 mmol/L 3.4-5.0 N CHLORIDE (test code = CL/ABG) 107 mmol/L 100-108 N CREATININE ABG (test code = 1.3 mg/dL 0.8-1.3 N CREAABG) POC IONIZED CALCIUM (test code = 1.15 MMOL/L 1.12-1.32 N POCCA) POC GLUCOSE (test code = POCGLU) 399 MG/DL 70-110 H HEMOGLOBIN [id number] 12:31:00 Test Item Value Reference Range Interpretation Comments HEMOGLOBIN ABG (test code = HGB/ABG) 9.8 G/DL 12.5-16.9 L [id number] 12:31:00 Test Item Value Reference Range Interpretation Comments HEMATOCRIT (test code = HCT/ABG) 29 % 37.5-50.7 L POC LACTIC [id number] 12:31:00 Test Item Value Reference Range Interpretation Comments POC LACTIC ACID (test code = 0.7 mmol/l 0.9-1.7 L POCLAC) TROP-I HIGH [id number] 08:10:00 Test Item Value Reference Range Interpretation Comments TROP-I HIGH 617 ng/L 0-54 HH Critical result called to SENSITIVITY (test Radha JEFFERSON code = TROPIHS) G.LAB.[facility] at 0810 03/04/23Nurse r ead back result and tech confirmed it's correct? Y CAUTION: Units of the cu rrent test methodology (ng /L) differfrom the prior test methodology (ng /mL) by a factor of 1000. 99t h Percentile Uppe r Reference Limit (URL): Fe males: 34 ng/LMales: 54 n g/L In order to distin guish acute elevations of h igh sensitivitytrop onin from other clinical conditions, the FourthUnive rsal Definition of M yocardial Infarction stressesclinica l assessment and the demonstration o f a rise and/orfall in s erial troponin result s above the URL. These resu lts were obtained using Siemens AtellPunchd IM TnI Hreagent. Results from di fferent methodologies s hould not becompared to o ne another as quantitative results and URLs mayvar y by method. COMPREHENSIVE METABOLIC [id number] 04:55:00 Test Item Value Reference Range Interpretation Comments SODIUM (test code = 140 mEq/L 134-147 N NA) POTASSIUM (test code 4.6 mEq/L 3.4-5.0 N = K) CHLORIDE (test code 106 mEq/L 100-108 N = CL) CARBON DIOXIDE (test 22 mEq/l 21-33 N code = CO2) ANION GAP (test code 17 0-20 N = GAP) GLUCOSE (test code = 295 mg/dL 70-110 H GLU) BLOOD UREA NITROGEN 27 mg/dL 7-18 H (test code = BUN) GLOMERULAR 58.7 70-80 L The Glomerular FILTRATION RATE Filtration R ate is a (test code = GFR) calculated parameterbased on serum Creatinine, pat ient age and sex. GFR va luesless than 60 mL/min/ 1.73 square meters a re indicative ofCh ronic Kidney Disease. Values less than 15 mL/min/1.73squa re meters indicate Kidney failure. The calculation for GFR is based on the CK D-EPI (2020) calculat ion. This formulais race indifferent and is the recommended for nereida for GFRby the [facility] on for Adults.The GFR will not calculate if th e sex is unknown or if thepatient's ag e is <18 years. CREATININE (test 1.3 mg/dL 0.6-1.3 N code = CREAT) TOTAL PROTEIN (test 6.0 g/dL 6.4-8.2 L code = PROT) ALBUMIN (test code = 3.00 g/dL 3.4-5.0 L ALB) CALCIUM (test code = 8.4 mg/dL 8.0-10.5 N CA) BILIRUBIN TOTAL 0.50 mg/dL 0.0-1.0 N (test code = BILT) SGOT/AST (test code 17 IUnit/L 15-37 N = AST) SGPT/ALT (test code 8 IUnit/L 30-65 L = ALT) ALKALINE PHOSPHATASE 45 IUnit/L 20-125 N TOTAL (test code = ALKP) [id number] 04:55:00 Test Item Value Reference Range Interpretation Comments MAGNESIUM (test code = MAG) 1.76 mg/dL 1.80-2.40 L UA RFLX MICR CULT IF [id number] 04:55:00 Test Item Value Reference Range Interpretation Comments UA COLOR (test code = COLU) YELLOW YEL/STRAW UA APPEARANCE (test code = CLEAR CLEAR APPU) UA GLUCOSE DIPSTICK (test code NEGATIVE NEGATIVE = DGLUU) UA BILIRUBIN DIPSTICK (test NEGATIVE NEGATIVE code = BILU) UA KETONE DIPSTICK (test code 1+ NEGATIVE A = KETU) UA SPECIFIC GRAVITY (test code 1.043 1.005-1.030 H = SGU) UA BLOOD DIPSTICK (test code = NEGATIVE NEGATIVE KYLE) UA PH DIPSTICK (test code = 5.0 5.0-7.0 N LITA) UA PROTEIN DIPSTICK (test code 3+ NEGATIVE A = PROU) UA UROBILINIOGEN DIPSTICK 0.2 mg/dL 0.2-1.0 (test code = URO) UA NITRITE DIPSTICK (test code NEGATIVE NEGATIVE = SUKUMAR) UA LEUKOCYTE ESTERASE DIPSTICK NEGATIVE NEGATIVE (test code = LEUU) UA WBC (test code = WBCU) 0-3 WBC/HPF 0-3 UA RBC (test code = RBCU) 0-3 RBC/HPF 0-3 UA WBC NO REFLEX (test code = 0-3 WBC/HPF 0-3 WBCUCL) UA BACTERIA (test code = BACU) NONE SEEN /HPF NONE SEEN UA SQUAMOUS CELLS (test code = NONE SEEN /HPF NONE SEEN SQU) UA MUCUS (test code = MUCU) TRACE /LPF NONE SEEN Indication for culture: Flank PainSpecimen Description: CLEAN CATCHCOVID 19 Asymptomatic IH [id number] 04:07:00 Test Item Value Reference Range Interpretation Comments COVID 19 Asymptomatic Negative Negative A nega tive result is IH AG (test code = presumpti ve and should COVNONPUIAG) be confirmedwit h an FDA authorized mole cular assay, if neces beatrice forpatient jak gement.A positive result does not rule out co-inf ections withother patho gens.This test detects enzo th viable (live) and non-viable,SARS -CoV, and SARS-CoV-2. Jorge Luis t performance dep ends on theamount of vi deepali (antigen) in th e sample.This jorge luis t has not been FDA cleare d or approved; the t est hasbeen authori zed by FDA under an Em ergency Use Authorizati on(EUA) for use by labo ratories certified under the CLIA thatmeet the requirements to perform moderate, high or waivedcomplexit y tests. THROMBOPLASTIN TIME [id number] 03:44:00 Test Item Value Reference Range Interpretation Comments THROMBOPLASTIN TIME 80.6 Seconds 25.0-39.5 H Therape utic Range: PARTIAL (test code = 50.4 - 88.3 Seconds PTT) Effective 12/22/2018 COMMENTS: DRAW PTT 6 HOURS AFTER INITIATION OF HEPARINCBC W/AUTO [id number] 03:27:00 Test Item Value Reference Range Interpretation Comments WHITE BLOOD CELL (test code = 5.4 x10 3/uL 4.5-11.0 N WBC) RED BLOOD CELL (test code = 3.36 x10 6/uL 4.00-5.60 L RBC) HEMOGLOBIN (test code = HGB) 10.4 g/dL 12.5-16.9 L HEMATOCRIT (test code = HCT) 31.4 % 37.5-50.7 L MEAN CELL VOLUME (test code = 93.5 fL 81.0-99.0 N MCV) MEAN CELL HGB (test code = MCH) 31.0 pg 27.0-33.0 N MEAN CELL HGB CONCETRATION 33.1 g/dL 33.0-37.0 N (test code = MCHC) RED CELL DISTRIBUTION WIDTH CV 14.4 % 11.5-14.5 N (test code = RDW) RED CELL DISTRIBUTION WIDTH SD 48.8 fL 37.0-54.0 N (test code = RDW-SD) PLATELET COUNT (test code = 117 x10 3/uL 150-400 L PLT) MEAN PLATELET VOLUME (test code 10.6 fL 7.0-9.0 H = MPV) NEUTROPHIL % (test code = NT%) 90.9 % 56.0-77.0 H IMMATURE GRANULOCYTE % (test 0.9 % 0.0-2.0 N code = IG%) LYMPHOCYTE % (test code = LY%) 5.0 % 14.0-32.0 L MONOCYTE % (test code = MO%) 2.8 % 4.8-9.0 L EOSINOPHIL % (test code = EO%) 0.2 % 0.3-3.7 L BASOPHIL % (test code = BA%) 0.2 % 0.0-2.0 N NUCLEATED RBC % (test code = 0.0 % 0-0 N NRBC%) NEUTROPHIL # (test code = NT#) 4.95 x10 3/uL 2.0-7.6 N IMMATURE GRANULOCYTE # (test 0.05 x10 3/uL 0.00-0.03 H code = IG#) LYMPHOCYTE # (test code = LY#) 0.27 x10 3/uL 1.0-3.8 L MONOCYTE # (test code = MO#) 0.15 x10 3/uL 0.1-0.8 N EOSINOPHIL # (test code = EO#) 0.01 x10 3/uL 0.0-0.2 N BASOPHIL # (test code = BA#) 0.01 x10 3/uL 0.0-0.2 N NUCLEATED RBC # (test code = 0.00 x10 3/uL 0.0-0.1 N NRBC#) MANUAL DIFF REQUIRED (test code NO = MDIFF) COMMENTS: Daily while on Heparin- CT HEAD/BRAIN W/O [id number] 00:00:00 [facility] 1950 Sex: M Name: TEVIN VAUGHAN [facility] : 1950 Age/S: 72 / M [address] [place] [address] Unit #: [id number] Loc: [place] [address] Phys: Noé Madrid MD Acct: [id number] Dis Date: Status: ADM IN PHONE #: [phone] Exam Date: 03/04/20231932 FAX #: [phone] Reason: MINIMAL NEURO ACTIVITY Report Has Been Amended EXAMS: CPT CODE: [id number] CT HEAD/BRAIN W/O CONT [id number] Addendum - 03/04/2023 SIGNED 03/04/2023 ADDENDUM: [id number] CT/CTHDBRWO Findings have been communicated by telephone to Vaishanvi, the nurse taking care of the patient, at 7:44 p.m. on 03/04/2023. at 1944 Reported and signed by: Carisa Schuler M.D.Report PROCEDURE INFORMATION: Exam: CT Head Without Contrast Exam date and time: 03/04/2023 7:26 PM Age: 72 years old Clinical indication: Stroke- like symptoms; Other: Minimal neuro activity TECHNIQUE:Imaging protocol: Computed tomography of the head without contrast. Radiation optimization: All CT scans at this facility use at least one of these dose optimization techniques: automated exposure control; mA and/or kV adjustment per patient size (includes targeted exams where dose is matched to clinical indication); or iterative reconstruction. Other technique: STROKE PROTOCOL was implemented. REPORTING DATA: Count of CT and Cardiac NM exams in prior 12 months: This patient has received [address] and 0 known cardiac nuclear medicine studies in the 12 months prior to the current study. COMPARISON:US DUP EXTRACRANIAL MERT 03/03/2023 11:54 PM FINDINGS: Brain: No hemorrhage, mass or mass effect is seen. The nj- white junction is intact. There is upss-yx-eqlelfng patchy low attenuation in the cerebral white matter, likely reflecting chronic small vessel ischemic disease. Small lacunar infarcts are present in the right caudate head and anterior limb left internal capsule. There are probably severalold lacunar infarcts in the jose bilaterally. One on the left is small. PAGE 1 Signed Report (CONTINUED) Name: TEVIN VAUGHAN [facility] : 1950 Age/S: 72 / M [address] [place] [address] Blvd Unit#: [id number] Loc: [place] [address] Phys: Noé Madrid MD Acct: [id number] Dis Date: Status: ADM IN PHONE #: [phone] Exam Date: 03/04/20231932 FAX #: [phone] Reason: MINIMAL NEURO ACTIVITY Report Has Been Amended EXAMS: CPT CODE: [id number] CT HEAD/BRAIN W/O CONT 84981 (Continued) Another on the right is large. These are probably old, but clinical correlation is requested. There are heavy intracranial arterial vascular calcifications. Cerebral ventricles: No ventriculomegaly. Paranasal sinuses: Small air-fluid levels are present in the sphenoid sinuses bilaterally. There is minimal mucosal thickening in the right maxillary antrum, with mild mucosal thickening in the sphenoid and ethmoid sinuses bilaterally.. Mastoid air cells: Visualized mastoid air cells are well aerated. Bones/joints: Unremarkable. No acute fracture. Soft tissues: Unremarkable. IMPRESSION: 1. No acute intracranial abnormality. 2. Chronic ischemic changes are present as described. 3. There is mild acute andchronic paranasal sinus disease. ASSESSMENT: ASPECTS ([place] Stroke Program Early CT Score) is 10. at 1940 Reported and signedby: Carisa Schuler M.D. CC: Noé Madrid MD; Luci Villeda MD Technologist:Nani Birmingham, (R)(CT) CTDI: DLP: Trnscb Date/Time: 03/04/2023 (1939) ShaYA Orig Print D/T: S: 03/04/2023 (1939)PAGE 2 Signed Report- XR CHEST 1 [id number] 00:00:00 [facility] : 1950 Sex: M FAX: Luci Wang [phone] [place]: St: [facility] FAX: Evon Garcia [facility] [phone] ---- Name: REJI VAUGHANMY [facility] : 1950 Age/S: 72/M [address] [place] [address] Unit #: [id number] Loc: [place] [address] Phys: Evon Andrew Physic Acct: [id number] Dis Date: Status: ADM IN PHONE #: [phone] Exam Date: 03/04/20231821 FAX #: [phone] Reason: Cardiac Surgery Post Op EXAMS: CPT CODE: [id number] XR CHEST 1 V 17207 PROCEDURE INFORMATION: Exam: XR Chest Exam date and time: 36:11 PM Age: 72 years old Clinical indication: Other: Cardiac surgery post op TECHNIQUE: Imaging protocol: Radiologic exam of the chest. Views: 1 view. COMPARISON: CR XR CHEST 1V 03/04/2023 5:06 AM FINDINGS: Tubes, catheters and devices: ET tube noted with tip 1 cm above the cristian. A right IJ CVC catheter is present with tip overlying the distal SVC. A left-sided basilar chest tube is present. A right-sided chest tube is noted with tip in the right hilar region. Lungs: Mild decreased lung volumes. There is mild prominence of interstitial markings, with mild right basilar atelectasis. No consolidation. Pleural spaces: Unremarkable. No pleural effusion. No pneumothorax. Heart/Mediastinum: Heart sizeis within normal limits. There is mild tortuosity of the thoracic aorta.. Bones/joints: Median sternotomy wires are seen. IMPRESSION: 1. Lines and tubes are in satisfactory position. 2. St. Mild bibasi lar atelectasis. ernal wires are seen at 1936 Reported and signed by: Carisa Schuler M.D. CC: Luci Villeda MD; Evon Andrew Technologist: SHONNA Bae) Trnscrd Date/Time/By: 03/04/2023 (1935) : By: Jose Juan Carter Print D/T: S: 03/04/2023 (1936) PAGE 1 Signed Report- XR CHEST 1 [id number] 00:00:00 [facility] : 1950 Sex: M FAX: Luci Wang [phone] [place]: St: ADM FAX: Emery Sheehan Jr [phone] ------ Name: TEVIN VAUGHAN [facility] : 1950 Age/S: 72/M [address] [place] [address] Blvd Unit #: [id number] Loc: [address] [address] Phys: Emery Sheehan Jr, MD Acct: [id number] Dis Date: Status: ADM IN PHONE #: [phone] Exam Date: 03/04/202351 FAX #: [phone] Reason: DAILY IN CVICU EXAMS: CPT CODE: [id number] XR CHEST 1 V 26505 PROCEDURE INFORMATION: Exam: XR Chest Exam date and time: 03/04/2023 5:06 AM Age: 72 years old Clinical indication: Other: Daily in cvicu TECHNIQUE: Imaging protocol: Radiologic exam of the chest. Views: 1 view. COMPARISON: CTA CHEST, CTA CHEST 03/03/2023 11:42 PM FINDINGS: Lungs: Emphysema. Nonspecific bibasilar opacities. The upper and mid lung tidwell are clear. Pleural spaces: No large pleural effusion. No pneumothorax. Heart/Mediastinum: No cardiomegaly. Vasculature: Atherosclerotic calcifications. Bones/joints: No acute fracture. IMPRESSION: Mild bibasilar opacities which may represent atelectasis or infiltrate. at 0806 Reported and signed by: Bon Spangler M.D. CC: Luci Villeda MD; Emery Sheehan Jr, MD Technologist: Artemio Downing RT(R) Trnmnrd Date/Time/By: 03/04/2023 (805) : By: [email or web address] Orig Print D/T: S: 03/04/2023 (806) PAGE 1 Signed Report- DUP VEIN [id number] 00:00:00 [facility] : 1950 Sex: M Name: TEVIN VAUGHAN [facility] : 1950 Age/S: 72 / M [address] [place] [address] Blvd Unit #: [id number] Loc: [place] [address] Phys: Sharmila Alan Acct: [id number] Dis Date: Status: ADM IN PHONE #: [phone] Exam Date: 03/04/2023712 FAX #: [phone] Reason: Swelling, R/O DVT EXAMS: CPT CODE: [id number] DUP VEIN MERT 69671 PROCEDURE INFORMATION: Exam: US Duplex Lower Extremity Veins, Bilateral Exam date and time: 03/04/2023 4:44 AM Age: 72 years old Clinical indication: Edema, localized; Lower extremity, bilateral; Additional info: Swelling, R/O dvt TECHNIQUE: Imaging protocol: Real-time duplex ultrasound of the bilateral extremities with 2-D nj scale, color Doppler flow and spectral waveform analysis including responses to compression and other maneuvers (when performed) with image documentation. Complete exam focused on the lower extremity veins. COMPARISON: US DUP VEIN MERT 03/04/2023 12:07 AM FINDINGS: Right deep veins: Unremarkable. The common femoral, femoral, proximal profunda femoral and popliteal veins are patent without thrombus. Normal Doppler waveforms. Normal compressibility and/or augmentation response. Right superficial veins: Saphenofemoral junction is patent withoutthrombus. Left deep veins: Unremarkable. The common femoral, femoral, proximal profunda femoral and popliteal veins are patent without thrombus. Normal Doppler waveforms. Normal compressibility and/or augmentation response. Left superficial veins: Saphenofemoral junction is patent without thrombus. Soft tissues: Unremarkable. IMPRESSION: No evidence of deep vein thrombosis. at 0804 Reported and signed by: Ezekiel Esteves M.D. CC: Sharmila Alan; Luci Villeda MD Technologist: Nancy Márquez RDMS(AB)(OB) Trnscb Date/Time: 03/04/2023 (803) t.[email or web address] Orig Print D/T: S: 03/04/2023 (804) Probe: PAGE 1 Signed Report- CT ANGIO [id number] 00:00:00 [facility] : 1950 Sex: M Name: TEVIN VAUGHAN [facility] : 1950 Age/S: 72 / M [address] [place] [address] Unit #: [id number] Loc: [place] [address] Phys: Sharmila Alan Acct: [id number] Dis Date: Status: ADM IN PHONE #: [phone] Exam Date: 03/03/20232341 FAX #: [phone] Reason: R/O PE EXAMS: CPT CODE: [id number] ANGIO CHEST 13350 PROCEDURE INFORMATION: Exam: CTA Chest With Contrast Exam date and time: 03/03/2023 11:42 PM Age: 72 years old Clinical indication: Cough and shortness of breath; concern for pulmonary embolism. TECHNIQUE: Imaging protocol: Computed tomographic angiography of the chest with contrast. Exam focused on the arteries. 3D rendering (Not supervised by radiologist): MIP and/or 3D reconstructed images were created by the technologist. Radiation optimization: All CT scans at this facilityuse at least one of these dose optimization techniques: automated exposure control; mA and/or kV adjustment per patient size (includes targeted exams where dose is matched to clinical indication); or iterative reconstruction. Contrast material: ISO 300; Contrast volume: 100 ml; Contrast route: INTRAVENOUS (IV); REPORTING DATA: Count of CT and Cardiac NM exams in prior 12 months: This patient has received 0 known CTs and 0 known cardiac nuclear medicine studies in the 12 months prior to the current study. COMPARISON: No relevant prior studies available. FINDINGS: Pulmonary arteries: No acute pulmonary emboli. Aorta: Atherosclerotic calcifications of the thoracic aorta and great vessel origins. Lungs: Emphysematous changes within both lungs. Subsegmental atelectasis at the lung bases. A 1.5 x 0.8 cm nodular opacity within the right lower lobe (axial series 2, image 79). Pleural spaces: Trace bilateral pleural effusions. Heart: Trace pericardial effusion. Coronary arteries: Coronary artery calcifications. Lymph nodes: No enlarged lymph nodes. Bones/joints: Degenerative changes within the spine. Soft tissues: Unremarkable. IMPRESSION: 1. No evidence of acute pulmonary embolism. 2. Emphysematous changes within both lungs. 3. A 1.5 x 0.8 cm nodular opacity within the right lower lobe. This may represent neoplastic etiology or possible scarring. As per 2017 Fleischner criteria guidelines, in low and high risk patients, CT of the chest, PET/CT, or tissue sampling should be performed in 3 months. PAGE 1 Signed Report (CONTINUED) Name: TEVIN VAUGHAN [facility] [place] : 1950 Age/S: 72 / M [address] [place] [address] Unit #: [id number] Loc: [place] [address] Phys: Sharmila Alan Acct: [id number] Date: Status: ADM IN PHONE #: [phone] Exam Date: 03/03/2023 2342 FAX #: [phone] Reason: R/O PE EXAMS: CPT CODE: [id number] CT ANGIO CHEST 49134 (Continued) at 0150 Reported and signed by: Alvino Roman M.D. CC: Sharmila Alan; Luci Villeda MD Technologist:Barbra Emmanuel, RT(R) CTDI: DLP: Trnscb Date/Time: 03/04/2023 (149) [email or web address] Orig Print D/T: S: 03/04/2023 (149) PAGE 2 Signed Report- DUP VEIN [id number] 00:00:00 [facility] : 1950 Sex: M Name: TEVIN VAUGHAN [facility] : 1950 Age/S: 72 / M [address] [place] [address] Unit #: [id number] Loc: [place] [address] Phys: Luci Villeda MD Acct: [id number] Dis Date: Status: ADM IN PHONE #: [phone] Exam Date: 03/04/202320 FAX #: [phone] Reason: Cardiac Surgery Pre Op EXAMS: CPT CODE: [id number] DUP VEIN MERT 61939 PROCEDURE INFORMATION: Exam: US Duplex Lower Extremity Veins; Vein mapping Exam date and time: 03/04/2023 12:07 AM Age: 72 years old Clinical indication: Screening exam; Pre op cabg; Additional info: Cardiac surgery pre op TECHNIQUE: Imaging protocol: Real-time duplex ultrasound of the extremities with 2-D nj scale, color Doppler flow and spectral waveform analysis including responses to compression and other maneuvers (when performed) with image documentation. Complete exam focused on the bilateral lower extremity veins for vein mapping. COMPARISON: No relevant prior studies available. FINDINGS: Right superficial veins: Normal Doppler waveforms. Normal compressibility. Greater saphenous vein is patent. Right great saphenous vein- upper thigh: 4.2 mmRight great saphenous vein-mid thigh: 2.5 mm Right great saphenous vein-lower thigh: 1.9 mm Right great saphenous vein-upper le.7 mm Right great saphenous vein-mid le.6 mm Right great saphenousvein-lower le.3 mm Left superficial veins: Normal Doppler waveforms. Normal compressibility. Greater saphenous vein is patent. Left great saphenous vein-upper thigh: 2.5 mm Left great saphenous vein-mid thigh: 3.1 mm Left great saphenous vein-lower thigh: 2.2 mm Left great saphenous vein-upper le.2 mm Left great saphenous vein-mid le.6 mm Left great saphenous vein-lower le.5 mm Soft tissues: Unremarkable. IMPRESSION: Greater saphenous veins are patent. Vein mapping as described. at 0206 Reported and signed by:Morales Villegas M.D. CC: Luci Villeda MD Technologist: Arcelia Dawn RDMS(AB)(OB) Trnscb Date/Time: 03/04/2023 (205) [email or web address] Orig Print D/T: S: 03/04/2023 (020) Probe: PAGE 1 Signed Report- DUP EXTRACRANIAL [id number] 00:00:00 [facility] : 1950 Sex: M Name: TEVIN VAUGHAN [facility] Gabriella Pope : 1950 Age/S: 72 / M [address] [place] [address] Blvd Unit #: [id number] Loc: [place] [address] Phys: Luci Villeda MD Acct: [id number] Dis Date: Status: ADM IN PHONE #: [phone] Exam Date: 03/03/202320 FAX #: [phone] Reason: Cardiac Surgery Pre Op EXAMS: CPT CODE: [id number] DUP EXTRACRANIAL MERT 84282 PROCEDURE INFORMATION: Exam: US Duplex Bilateral Extracranial Arteries; Complete; Carotid Arteries Exam date and time: 03/03/2023 11:54 PM Age: 72 years old Clinical indication: Screening exam; Cardiac surgery pre op TECHNIQUE: Imaging protocol: Real-time duplex ultrasound scan of the bilateral extracranial arteries combining nj scale, color Doppler and spectral waveform analysis with image documentation. Complete exam. Exam focused on the carotid arteries. COMPARISON: CTA CHEST, CTA CHEST 03/03/2023 11:42 PM FINDINGS: Right common carotid artery: Mild plaque at the right common carotid artery bifurcation. Peak systolic velocity 100.3 cm/s. No occlusion or stenosis. Waveforms are normal. Right internal carotid artery: Peak systolic zfegoxpo406.2 cm/s. No occlusion or stenosis. Waveforms are normal. Right ICA/CCA ratio: Within normal limits. 1.1 Right external carotid artery: No stenosis in the origin. Right vertebral artery: Antegrade flow. Left common carotid artery: Moderate to severe plaque along the left common carotid artery bifurcation. Peak systolic velocity 103.4 cm/s. No occlusion or stenosis. Waveforms are normal. Left internal carotid artery: Peak systolic velocity 421 cm/s. Turbulent flow. Left ICA/CCA ratio: Abnormal. 4.1 Left external carotid artery: No stenosis in the origin. Left vertebral artery: Antegrade flow. IMPR ESSION: 1. Severe stenosis of the left proximal internal carotid artery by NASCET criteria. ConsiderCTA of the neck for complete assessment. 2. No significant stenosis within the proximal right internal carotid artery. REFERENCES: The degree of internal carotid artery stenosis is based on criteria defined by the IAC Vascular Testing criteria. Normal is no stenosis. Mild is less than 50% stenosis. Moderate is 50-69% stenosis. Severe is greater than 69% stenosis to near occlusion. Near occlusion is amarkedly narrowed lumen. Total occlusion is no detectable patent lumen. PAGE 1 Signed Report (CONTINUED) Name: TEVIN VAUGHAN [facility] : 1950 Age/S: 72 / M [address] [place] [address] Blvd Unit#: [id number] Loc: [place] [address] Phys: Luci Villeda MD Acct: [id number] Dis Date: Status: ADM IN PHONE #: [phone] Exam Date: 03/03/202320 FAX #: [phone] Reason: Cardiac Surgery Pre Op EXAMS: CPT CODE: [id number] DUP EXTRACRANIAL MERT [id number] (Continued) at 0217 Reported and signed by: Alvino Roman M.D. CC: Luci Villeda MD Technologist: Arcelia Dawn RDMS(AB)(OB) Trnscb Date/Time: 03/04/2023 (216) [id number] Orig Print D/T: S: 03/04/2023 (217) Probe: PAGE 2 Signed ReportB-TYPE NATRIURETIC [id number] 22:13:00 Test Item Value Reference Range Interpretation Comments B-TYPE NATRIURETIC PEPTIDE (test 802.0 PG/ML 0-100 H code = BNP) HGBA1C%2023-03-03 21:50:00 Test Item Value Reference Range Interpretation Comments HGBA1C% (test code = HGBA1C%) 7.1 %A1C 4.8-6.0 H COMPREHENSIVE METABOLIC [id number] 21:43:00 Test Item Value Reference Range Interpretation Comments SODIUM (test code = 142 mEq/L 134-147 N NA) POTASSIUM (test code 4.2 mEq/L 3.4-5.0 N = K) CHLORIDE (test code 109 mEq/L 100-108 H = CL) CARBON DIOXIDE (test 28 mEq/l 21-33 N code = CO2) ANION GAP (test code 9 0-20 N = GAP) GLUCOSE (test code = 148 mg/dL 70-110 H GLU) BLOOD UREA NITROGEN 24 mg/dL 7-18 H (test code = BUN) GLOMERULAR 64.7 70-80 L The Glomerular FILTRATION RATE Filtration R ate is a (test code = GFR) calculated parameterbased on serum Creatinin e, patient age and sex. GFR valuesless than 60 mL/min/1.73 squ are meters are sherita cative ofChronic Kidne y Disease. Values less than 15 mL/min/1.73squa re meters indicate Kidney failure. The calculation for GFR is based on the CK D-EPI (2020) calculat ion. This formulais race indifferent and is the recommended for nereida for GFRby the [facility] on for Adults.The GFR will not calculate i f the sex is unknown or if thepatient's ag e is <18 years. CREATININE (test 1.2 mg/dL 0.6-1.3 N code = CREAT) TOTAL PROTEIN (test 6.4 g/dL 6.4-8.2 N code = PROT) ALBUMIN (test code = 3.20 g/dL 3.4-5.0 L ALB) CALCIUM (test code = 8.5 mg/dL 8.0-10.5 N CA) BILIRUBIN TOTAL 0.50 mg/dL 0.0-1.0 N (test code = BILT) SGOT/AST (test code 15 IUnit/L 15-37 N = AST) SGPT/ALT (test code < 7 IUnit/L 30-65 L = ALT) ALKALINE PHOSPHATASE 48 IUnit/L 20-125 N TOTAL (test code = ALKP) LIPID PROFILE (CORONARY RISK)2023-03-03 21:43:00 Test Item Value Reference Range Interpretation Comments TRIGLYCERIDES (test 170 mg/dL 40-150 H code = TRIG) CHOLESTEROL (test 100 mg/dL <200 code = CHOL) CHOLESTEROL/HDL 4.74 RATIO 3.43-4.97 N RISK ASSOCIA BORIS WITH RATIO (test code = CHOL/HDL RATIOS: RISK CHOLHDL) MALE FEMALE1/2 AVERAGE 3.43 3.27AVERAG E 4.97 4.442X AVERAGE 9.55 7.053X AVERAGE 23.39 11.04 NOTE THAT THE REFERENCE VALUE IS RELATEDTO RISK LEVELS RECOMMENDED BY THE NATL.HEART, FABIOLA G, AND BLOOD INST. HDL CHOLESTEROL 21.1 mg/dL 32-72 L (test code = HDL) LIPOPROTEIN LDL 53.0 mg/dL 0-100 N <100 OPTIMAL 100-129 (test code = LDL) NEAR OPTIM AL/ABOVE [id number] 89 HIGH>SN=730 JIMENA Y HIGH*Guidelines provided by the [facility] terol EducationProgra m Adult Treatment Panel III PROTHROMBIN [id number] 21:40:00 Test Item Value Reference Range Interpretation Comments PROTHROMBIN TIME 14.4 SECONDS 9.3-12.9 H PATIENT (test code = PTP) INTERNATIONAL NORMAL 1.3 0.8-1.2 H TARGET INR BY RATIO (test code = INDICATIO N Indication INR) INR1. Prophylax is of venous thrombos is 2.0 - 3.0 (orthoped ic surgery), Proph ylaxis of venous throm bosis (other than hig h-risk surgery), Treat ment of Deep Vein Thrombosis/Pulm onary Embolism, Preve ntion of systemic emb olism - Tissue heart va lves, Acute Myocardia l Infarction (to prevent systemic emboli sm), Valvular heart disease, Atrial Fibrillation, Bileaflet mecha nical valve in aortic position.2. Mec hanical prosthetic valv es (high risk), 2. 5 - 3.5 Presence of Lup us Anticoagulant o r Antiphospholipi d Antibodies, Pre vention of systemic emb olism - Acute Myocardia l Infarction (to prevent recurrent infar ct). COMMENTS: IF NOT ALREADY DONE WITHIN LAST 24 HOURSTHROMBOPLASTIN TIME PARTIAL 2023-03-03 21:40:00 Test Item Value Reference Range Interpretation Comments THROMBOPLASTIN TIME 39.0 Seconds 25.0-39.5 N Therape utic Range: PARTIAL (test code = 50.4 - 88.3 Seconds PTT) Effective 12/22/2018 COMMENTS: IF NOT ALREADY DONE WITHIN LAST 24 HOURSCBC W/AUTO [id number] 21:29:00 Test Item Value Reference Range Interpretation Comments WHITE BLOOD CELL (test code = 5.0 x10 3/uL 4.5-11.0 N WBC) RED BLOOD CELL (test code = 3.45 x10 6/uL 4.00-5.60 L RBC) HEMOGLOBIN (test code = HGB) 10.6 g/dL 12.5-16.9 L HEMATOCRIT (test code = HCT) 32.5 % 37.5-50.7 L MEAN CELL VOLUME (test code = 94.2 fL 81.0-99.0 N MCV) MEAN CELL HGB (test code = MCH) 30.7 pg 27.0-33.0 N MEAN CELL HGB CONCETRATION 32.6 g/dL 33.0-37.0 L (test code = MCHC) RED CELL DISTRIBUTION WIDTH CV 14.3 % 11.5-14.5 N (test code = RDW) RED CELL DISTRIBUTION WIDTH SD 48.4 fL 37.0-54.0 N (test code = RDW-SD) PLATELET COUNT (test code = 118 x10 3/uL 150-400 L PLT) MEAN PLATELET VOLUME (test code 11.2 fL 7.0-9.0 H = MPV) NEUTROPHIL % (test code = NT%) 84.2 % 56.0-77.0 H IMMATURE GRANULOCYTE % (test 0.2 % 0.0-2.0 N code = IG%) LYMPHOCYTE % (test code = LY%) 6.4 % 14.0-32.0 L MONOCYTE % (test code = MO%) 7.8 % 4.8-9.0 N EOSINOPHIL % (test code = EO%) 1.0 % 0.3-3.7 N BASOPHIL % (test code = BA%) 0.4 % 0.0-2.0 N NUCLEATED RBC % (test code = 0.0 % 0-0 N NRBC%) NEUTROPHIL # (test code = NT#) 4.18 x10 3/uL 2.0-7.6 N IMMATURE GRANULOCYTE # (test 0.01 x10 3/uL 0.00-0.03 N code = IG#) LYMPHOCYTE # (test code = LY#) 0.32 x10 3/uL 1.0-3.8 L MONOCYTE # (test code = MO#) 0.39 x10 3/uL 0.1-0.8 N EOSINOPHIL # (test code = EO#) 0.05 x10 3/uL 0.0-0.2 N BASOPHIL # (test code = BA#) 0.02 x10 3/uL 0.0-0.2 N NUCLEATED RBC # (test code = 0.00 x10 3/uL 0.0-0.1 N NRBC#) MANUAL DIFF REQUIRED (test code NO = MDIFF) COMMENTS: IF NOT ALREADY DONE WITHIN LAST 24 HOURSXR CHEST 1 [id number] 13:08:01EXAM: XR CHEST 1 VW HISTORY: ct removal COMPARISON: None. FINDINGS: The heart and great vessels are normal and the lungs are well expanded andclear.A pneumothorax is not detected. The left hemidiaphragm remains slightlyelevated. Subcutaneous emphysema is diminishing on the right. ? [facility], Radiant Results Inft User - 02/17/2020 8:09 AM CDTEXAM: XR CHEST 1 VWHISTORY: ct removal COMPARISON: None.FINDINGS:The heart and great vessels are normal and the lungs are well expanded andclear.A pneumothorax is not detected. The left hemidiaphragm remains slightlyelevated. Subcutaneous emphysema is diminishing onthe right.[facility]2020-02-17 12:41:00 Test Item Value Reference Range Interpretation Comments POCT GLU (test code = 4505544296) 117 mg/dL 70-110 H Lab Interpretation (test code = Abnormal 03271-2) [facility] (NA, K, CL, CO2, GLUCOSE, BUN, CREATININE, CA)2020-02-17 09:49:00 Test Item Value Reference Range Interpretation Comments NA (test code = 138 mmol/L 135-145 3118181654) K (test code = 4.9 mmol/L 3.5-5 6360737300) CL (test code = 106 mmol/L 98-108 4600778999) CO2 TOTAL (test code = 27 mmol/L 23-31 6878956721) AGAP (test code = 2-16 5528250940) BUN (test code = 38 mg/dL 7-23 H 2813815615) GLUCOSE (test code = 203 mg/dL 70-110 H 9971366564) CREATININE (test code = 1.44 mg/dL 0.6-1.25 H 5621368220) CALCIUM (test code = 8.7 mg/dL 8.6-10.6 9646341801) eGFR Calculation mL/min/1.73m2 (Non-) (test code = 6659521768) eGFR Calculation mL/min/1.73m2 () (test code = 1006903057) LOREN (test code = LOREN) Association of [...] tests). Lab Interpretation Abnormal (test code = 08606-7) [facility] WITH [id number] 09:27:00 Test Item Value Reference Range Interpretation Comments WBC (test code = See_Comment [Automated 3690-2) message] The sy stem which generated this result transmitted reference range : 4.20 - 10.70 10*3/?L. The reference range was not used to interpret this result as normal/abnormal . RBC (test code = See_Comment L [Automated 869-8) message] The sy stem which generated this [...] RDW-SD (test code = 46.7 fL 38.5-51.6 60803-5) RDW-CV (test code = 14.1 % 12.1-15.4 788-0) PLT (test code = See_Comment [Automated 777-3) message] The sy stem which generated this result transmitted reference range : 150 - 328 10*3/ ?L. The reference r susi was not used to interpret this result as normal/abnormal . MPV (test code = 10.3 fL 9.8-13 82653-2) NRBC/100 WBC (test See_Comment [Automat ed code = 5540967233) message] The system which generated this result transmitted reference range : 0.0 - 10.0 /100 WBCs. The refer ence range was not u sed to interpret th is result as normal/abnormal . NRBC x10^3 (test code <0.01 See_Comment [Auto mated = 1877164137) message] The s ystem which generated this result transmitted reference range : 10*3/?L. The reference range was not used to interpret this result as normal/abnormal . GRAN MAT (NEUT) % 79.4 % (test code = 770-8) IMM GRAN % (test code 0.20 % = 4725793108) LYMPH % (test code = 11.2 % 736-9) MONO % (test code = 6.7 % 5905-5) EOS % (test code = 1.9 % 713-8) BASO % (test code = 0.6 % 706-2) GRAN MAT x10^3(ANC) 4.24 10*3/uL 1.99-6.95 (test code = 0522431437) IMM GRAN x10^3 (test <0.03 0-0.06 code = 3193304507) LYMPH x10^3 (test code 0.60 10*3/uL 1.09-3.23 L = 731-0) MONO x10^3 (test code 0.36 10*3/uL 0.36-1.02 = 742-7) EOS x10^3 (test code = 0.10 10*3/uL 0.06-0.53 711-2) BASO x10^3 (test code 0.03 10*3/uL 0.01-0.09 = 704-7) Lab Interpretation Abnormal (test code = 74867-6) [facility] GLUCOSE (AUTOMATED)2020-02-17 09:04:00 Test Item Value Reference Range Interpretation Comments POCT GLU (test code = 6795912689) 210 mg/dL 70-110 H Lab Interpretation (test code = Abnormal 96214-8) [facility] GLUCOSE (AUTOMATED)2020-02-17 05:34:00 Test Item Value Reference Range Interpretation Comments POCT GLU (test code = 2775383485) 251 mg/dL 70-110 H Lab Interpretation (test code = Abnormal 35914-9) [facility] GLUCOSE (AUTOMATED)2020-02-17 01:56:00 Test Item Value Reference Range Interpretation Comments POCT GLU (test code = 1661703712) 190 mg/dL 70-110 H Lab Interpretation (test code = Abnormal 65013-1) [facility] GLUCOSE (AUTOMATED)2020-02-17 01:06:00 Test Item Value Reference Range Interpretation Comments POCT GLU (test code = 3247026657) 224 mg/dL 70-110 H Lab Interpretation (test code = Abnormal 15952-4) [facility]GLOB[facility] (A1C)2020-02-17 00:01:00 Test Item Value Reference Range Interpretation Comments HGB A1C (test code = 4548-4) 6.8 % 4-6 H Lab Interpretation (test code = Abnormal 56680-3) [facility] GLUCOSE (AUTOMATED)2020-02-16 21:07:00 Test Item Value Reference Range Interpretation Comments POCT GLU (test code = 7932958285) 303 mg/dL 70-110 H Lab Interpretation (test code = Abnormal 46459-1) [facility] GLUCOSE (AUTOMATED)2020-02-16 16:42:00 Test Item Value Reference Range Interpretation Comments POCT GLU (test code = 8606680355) 282 mg/dL 70-110 H Lab Interpretation (test code = Abnormal 21255-5) [facility] [id number] 13:17:11EXAM: XR CHEST 1 VW HISTORY: ptx COMPARISON: None. FINDINGS: The heart and great vessels are normal and the lungs are satisfactorilyexpanded and clear. The density superimposed upon the right lung baseisalmost certainly due to pectoral muscles. Subcutaneous emphysema persists. ? [facility], Radiant ResultsInft User - 02/16/2020 8:18 AM CDTEXAM: XR CHEST 1 VWHISTORY: ptx COMPARISON: None.FINDINGS:The heart and great vessels are normal and the lungs are satisfactorilyexpanded and clear. The density superimposed upon the right lung base isalmost certainly due to pectoral muscles. Subcutaneous emphysema persists.[facility] CenterTROPONIN [id number] 13:04:00 Test Item Value Reference Range Interpretation Comments TROPONIN I (test 0.003 ng/mL See_Comment [Automated code = 9096119919) message] The system which generated this result [...] ? Lab Interpretation Normal (test code = 33626-9) [facility] METABOLIC PANEL (NA, K, CL, CO2, GLUCOSE, BUN, CREATININE, CA)2020-02-16 11:11:00 Test Item Value Reference Range Interpretation Comments NA (test code = 135 mmol/L 135-145 2907231234) K (test code = 4.4 mmol/L 3.5-5 1443144876) CL (test code = 105 mmol/L 98-108 4731556270) CO2 TOTAL (test code = 24 mmol/L 23-31 2901720478) AGAP (test code = 2-16 9280447010) BUN (test code = 58 mg/dL 7-23 H 8513745675) GLUCOSE (test code = 226 mg/dL 70-110 H 9194205713) CREATININE (test code = 1.96 mg/dL 0.6-1.25 H 1508847968) CALCIUM (test code = 8.2 mg/dL 8.6-10.6 L 2969040559) eGFR Calculation mL/min/1.73m2 (Non-) (test code = 9312512828) eGFR Calculation mL/min/1.73m2 () (test code = 9578010291) LOREN (test code = LOREN) Association of [...] tests). Lab Interpretation Abnormal (test code = 78103-7) [facility] WITH [id number] 10:36:00 Test Item Value Reference Range Interpretation [...] RDW-SD (test code = 45.3 fL 38.5-51.6 98863-8) RDW-CV (test code = 13.8 % 12.1-15.4 788-0) PLT (test code = See_Comment L [Automated 777-3) message] The sy stem which generated this result transmitted reference range : 150 - 328 10*3/ ?L. The reference r suis was not used to interpret this result as normal/abnormal . MPV (test code = 10.1 fL 9.8-13 28520-9) NRBC/100 WBC (test See_Comment [Automat ed code = 2424532497) message] The system which generated this result transmitted reference range : 0.0 - 10.0 /100 WBCs. The refer ence range was not u sed to interpret th is result as normal/abnormal . NRBC x10^3 (test code <0.01 See_Comment [Auto mated = 1927426540) message] The s ystem which generated this result transmitted reference range : 10*3/?L. The reference range was not used to interpret this result as normal/abnormal . GRAN MAT (NEUT) % 70.2 % (test code = 770-8) IMM GRAN % (test code 0.50 % = 7110980691) LYMPH % (test code = 15.7 % 736-9) MONO % (test code = 8.3 % 5905-5) EOS % (test code = 4.8 % 713-8) BASO % (test code = 0.5 % 706-2) GRAN MAT x10^3(ANC) 2.95 10*3/uL 1.99-6.95 (test code = 2842646782) IMM GRAN x10^3 (test <0.03 0-0.06 code = 4604929591) LYMPH x10^3 (test code 0.66 10*3/uL 1.09-3.23 L = 731-0) MONO x10^3 (test code 0.35 10*3/uL 0.36-1.02 L = 742-7) EOS x10^3 (test code = 0.20 10*3/uL 0.06-0.53 711-2) BASO x10^3 (test code <0.03 0.01-0.09 = 704-7) Lab Interpretation Abnormal (test code = 96823-2) [facility] GLUCOSE (AUTOMATED)2020-02-16 05:14:00 Test Item Value Reference Range Interpretation Comments POCT GLU (test code = 272 mg/dL 70-110 H Notifi ed Provider 8222549069) Lab Interpretation (test Abnormal code = 75198-9) [facility] GLUCOSE (AUTOMATED)2020-02-16 02:08:00 Test Item Value Reference Range Interpretation Comments POCT GLU (test code = 6007895230) 302 mg/dL 70-110 H Lab Interpretation (test code = Abnormal 18943-6) [facility]2020-02-15 22:46:00 Test Item Value Reference Range Interpretation Comments POCT GLU (test code = 9258712359) 270 mg/dL 70-110 H Lab Interpretation (test code = Abnormal 07116-4) [facility] CenterUS RETROPERITONEAL [id number] 15:11:50 Somewhat limited examination due to patient [...] cm in length (119 ml). No hydronephrosis. [facility], Radiant Results Inft User - 02/15/2020 10:12 [...] due to patientpositioning.Preliminary Report Dictated by Resident: Moise Quarles MD., have reviewed this study and agree with the abovereport.[facility]PO[facility]2020-02-15 13:20:00 Test Item Value Reference Range Interpretation Comments POCT GLU (test code = 3458120471) 155 mg/dL 70-110 H Lab Interpretation (test code = Abnormal 85691-2) [facility] [id number] 12:56:56EXAM: XR CHEST 1 VW HISTORY: MV [...] atelectasis in the right midlung laterally. Subcutaneousemphysema persists.[facility] CenterBASIC MET[facility]OLIC PANEL (NA, K, CL, CO2, GLUCOSE, BUN, CREATININE, CA)2020-02-15 10:15:00 Test Item Value Reference Range Interpretation Comments NA (test code = 134 mmol/L 135-145 L 8751282324) K (test code = 4.6 mmol/L 3.5-5 4110502521) CL (test code = 101 mmol/L 98-108 4249296056) CO2 TOTAL (test code = 24 mmol/L 23-31 2873412589) AGAP (test code = 2-16 1090710114) BUN (test code = 76 mg/dL 7-23 H 1793933717) GLUCOSE (test code = 147 mg/dL 70-110 H 5364660078) CREATININE (test code = 3.26 mg/dL 0.6-1.25 H 4760909731) CALCIUM (test code = 8.1 mg/dL 8.6-10.6 L 3554071189) eGFR Calculation mL/min/1.73m2 (Non-) (test code = 4459190914) eGFR Calculation mL/min/1.73m2 () (test code = 5376197523) LOREN (test code = LOREN) Association of [...] tests). Lab Interpretation Abnormal (test code = 56068-5) [facility] WITH [id number] 09:36:00 Test Item Value Reference Range Interpretation Comments WBC (test code = See_Comment [Automated 6593-2) message] The sy stem which generated this result transmitted reference range : 4.20 - 10.70 10*3/?L. The reference range was not used to interpret this result as normal/abnormal . RBC (test code = See_Comment L [Automated 848-8) message] The sy stem which generated this [...] RDW-SD (test code = 46.5 fL 38.5-51.6 69446-3) RDW-CV (test code = 14.0 % 12.1-15.4 788-0) PLT (test code = See_Comment L [Automated 777-3) message] The sy stem which generated this result transmitted reference range : 150 - 328 10*3/ ?L. The reference r susi was not used to interpret this result as normal/abnormal . MPV (test code = 10.9 fL 9.8-13 65257-1) NRBC/100 WBC (test See_Comment [Automat ed code = 2388295056) message] The system which generated this result transmitted reference range : 0.0 - 10.0 /100 WBCs. The refer ence range was not u sed to interpret th is result as normal/abnormal . NRBC x10^3 (test code <0.01 See_Comment [Auto mated = 7645696857) message] The s ystem which generated this result transmitted reference range : 10*3/?L. The reference range was not used to interpret this result as normal/abnormal . GRAN MAT (NEUT) % 78.7 % (test code = 770-8) IMM GRAN % (test code 0.50 % = 3894254689) LYMPH % (test code = 9.3 % 736-9) MONO % (test code = 8.2 % 5905-5) EOS % (test code = 2.9 % 713-8) BASO % (test code = 0.4 % 706-2) GRAN MAT x10^3(ANC) 4.32 10*3/uL 1.99-6.95 (test code = 5842826305) IMM GRAN x10^3 (test 0.03 10*3/uL 0-0.06 code = 0556031817) LYMPH x10^3 (test code 0.51 10*3/uL 1.09-3.23 L = 731-0) MONO x10^3 (test code 0.45 10*3/uL 0.36-1.02 = 742-7) EOS x10^3 (test code = 0.16 10*3/uL 0.06-0.53 711-2) BASO x10^3 (test code <0.03 0.01-0.09 = 704-7) Lab Interpretation Abnormal (test code = 43479-9) [facility] CenterSODIUM [id number] 05:53:00 Test Item Value Reference Range Interpretation Comments T. VOL U (test code = 700 mL 2495243312) HR COLLECT (test code = Hours 6722838150) NA URINE (test code = 22 mmol/L 0131063062) NA U/24H (test code = See_Comment L [Auto mated message] 8973533388) The system [employer] generated this result transmit boris reference range : 40 - 220 mmol/24 h rs. The reference r susi was not used to interpret this result as normal/abnormal . Lab Interpretation (test Abnormal code = 47404-8) [facility]2020-02-15 01:57:00 Test Item Value Reference Range Interpretation Comments POCT GLU (test code = 3035651362) 199 mg/dL 70-110 H Lab Interpretation (test code = Abnormal 19183-3) [facility] CenterCHLORIDE, URINE [id number] 01:52:00 Test Item Value Reference Range Interpretation Comments CL URINE (test code = 0625946584) <15 30-260 L Lab Interpretation (test code = Abnormal 64818-3) [facility] CenterPOTASSIUM, URINE [id number] 01:39:00 Test Item Value Reference Range Interpretation Comments K URINE (test code = 7692325055) 60.5 mmol/L [facility] CenterURINALYSIS2020-06-09 01:10:00 Test Item Value Reference Range Interpretation Comments APPEARANCE (test code = Hazy Clear A 3390874930) COLOR (test code = Yellow Yellow 0771738092) PH (test code = 4.8-8.0 6048959183) SP GRAVITY (test code = 1.003-1.030 2174095321) GLU U QUAL (test code = Normal Normal 2721777268) BLOOD (test code = 2+ Negative A 4399988835) KETONES (test code = Negative Negative 1940944679) PROTEIN (test code = Negative Negative 2887-8) UROBILIN (test code = Normal Normal 0758388372) BILIRUBIN (test code = Negative Negative 2091208161) NITRITE (test code = Negative Negative 3474006687) [place] (test code = Negative Negative 0761192560) RBC/HPF (test code = See_Comment H [Autom ated message] 5130299678) The system [employer] generated this result transmitted ref erence range: 0 - 3 HP F. The reference range was not used to int erpret this result as normal/abnormal . WBC/HPF (test code = See_Comment [Autom ated message] 6441735035) The system [employer] generated this result transmitted ref erence range: 0 - 5 HP F. The reference range was not used to int erpret this result as normal/abnormal . BACTERIA (test code = Negative Negative 7753559376) MUCOUS (test code = Slight Negative LPF A 3855676829) SQ EPITH (test code = <1 See_Comment [Auto mated message] 4324862793) The system [employer] generated this result transmitted ref erence range: <=2 HPF. The reference range was not used to int erpret this result as normal/abnormal . Lab Interpretation (test Abnormal code = 29099-2) [facility] CenterSODIUM, URINE [id number] 23:41:00 Test Item Value Reference Range Interpretation Comments NA URINE (test code = 6697324606) 20 mmol/L [facility] GLUCOSE (AUTOMATED)2020-02-14 23:12:00 Test Item Value Reference Range Interpretation Comments POCT GLU (test code = 4076439847) 115 mg/dL 70-110 H Lab Interpretation (test code = Abnormal 06525-7) [facility] GLUCOSE (AUTOMATED)2020-02-14 22:31:00 Test Item Value Reference Range Interpretation Comments POCT GLU (test code = 9760569199) 124 mg/dL 70-110 H Lab Interpretation (test code = Abnormal 89502-0) [facility] [id number] 21:47:22 FINDINGS/IMPRESSION: Right-sided chest tube has been [...] No pleural effusion. Preliminary Report Dictatedby Resident: Crystal Mckeon MD., have reviewed this study and agree [...] No pleural effusion.Preliminary Report Dictated by Resident: Estiven Bryan, Crystal Gastelum MD., have reviewed this study and agree with the abovereport.[facility]PO[facility] 2020-02-14 13:14:00 Test Item Value Reference Range Interpretation Comments POCT GLU (test code = 6454777840) 136 mg/dL 70-110 H Lab Interpretation (test code = Abnormal 28316-2) [facility] [id number] 13:02:33EXAM: XR CHEST 1 VW HISTORY: CT [...] vessels are normal. Subcutaneous emphysemapersists on the right.[facility] CenterBASI METABOLIC PANEL (NA, K, CL, CO2, GLUCOSE, BUN, CREATININE, CA)2020-02-14 09:35:00 Test Item Value Reference Range Interpretation Comments NA (test code = 134 mmol/L 135-145 L 4398892344) K (test code = 4.4 mmol/L 3.5-5 4381288895) CL (test code = 102 mmol/L 98-108 6599627958) CO2 TOTAL (test code = 25 mmol/L 23-31 2566291025) AGAP (test code = 2-16 2165340634) BUN (test code = 65 mg/dL 7-23 H 6121513482) GLUCOSE (test code = 136 mg/dL 70-110 H 9986924894) CREATININE (test code = 4.32 mg/dL 0.6-1.25 H 5536228767) CALCIUM (test code = 7.8 mg/dL 8.6-10.6 L 9931754612) eGFR Calculation mL/min/1.73m2 (Non-) (test code = 1125535441) eGFR Calculation mL/min/1.73m2 () (test code = 9950642829) LOREN (test code = LOREN) Association of [...] tests). Lab Interpretation Abnormal (test code = 70877-0) [facility] WITH [id number] 09:15:00 Test Item Value Reference Range Interpretation Comments WBC (test code = See_Comment [Automated 0790-2) message] The sy stem which generated this [...] RDW-SD (test code = 47.9 fL 38.5-51.6 55621-1) RDW-CV (test code = 14.0 % 12.1-15.4 788-0) PLT (test code = See_Comment L [Automated 777-3) message] The sy stem which generated this result transmitted reference range : 150 - 328 10*3/ ?L. The reference r susi was not used to interpret this result as normal/abnormal . MPV (test code = 10.5 fL 9.8-13 59054-0) NRBC/100 WBC (test See_Comment [Automat ed code = [id number]) message] The system which generated this result transmitted reference range : 0.0 - 10.0 /100 WBCs. The refer ence range was not u sed to interpret th is result as normal/abnormal . NRBC x10^3 (test code <0.01 See_Comment [Auto mated = 5153849094) message] The s ystem which generated this result transmitted reference range : 10*3/?L. The reference range was not used to interpret this result as normal/abnormal . GRAN MAT (NEUT) % 75.0 % (test code = 770-8) IMM GRAN % (test code 0.60 % = 0066020236) LYMPH % (test code = 13.3 % 736-9) MONO % (test code = 7.7 % 5905-5) EOS % (test code = 3.0 % 713-8) BASO % (test code = 0.4 % 706-2) GRAN MAT x10^3(ANC) 4.02 10*3/uL 1.99-6.95 (test code = 3360018764) IMM GRAN x10^3 (test 0.03 10*3/uL 0-0.06 code = 3467507002) LYMPH x10^3 (test code 0.71 10*3/uL 1.09-3.23 L = 731-0) MONO x10^3 (test code 0.41 10*3/uL 0.36-1.02 = 742-7) EOS x10^3 (test code = 0.16 10*3/uL 0.06-0.53 711-2) BASO x10^3 (test code <0.03 0.01-0.09 = 704-7) Lab Interpretation Abnormal (test code = 29407-6) [facility] [id number] 05:08:00 Test Item Value Reference Range Interpretation Comments CREAT U (test code = 5351916315) 226.2 mg/dL [facility]2020-02-14 01:54:00 Test Item Value Reference Range Interpretation Comments POCT GLU (test code = 1992445974) 173 mg/dL 70-110 H Lab Interpretation (test code = Abnormal 98274-5) [facility] METABOLIC PANEL (NA, K, CL, CO2, GLUCOSE, BUN, CREATININE, CA)2020-02-14 00:55:00 Test Item Value Reference Range Interpretation Comments NA (test code = 136 mmol/L 135-145 6135308824) K (test code = 4.8 mmol/L 3.5-5 8818871681) CL (test code = 101 mmol/L 98-108 4426073105) CO2 TOTAL (test code = 26 mmol/L 23-31 3236903067) AGAP (test code = 2-16 5830222784) BUN (test code = 64 mg/dL 7-23 H 2875847171) GLUCOSE (test code = 171 mg/dL 70-110 H 4248020082) CREATININE (test code = 4.30 mg/dL 0.6-1.25 H 6382657971) CALCIUM (test code = 8.5 mg/dL 8.6-10.6 L 7714401634) eGFR Calculation mL/min/1.73m2 (Non-) (test code = 1363064485) eGFR Calculation mL/min/1.73m2 () (test code = 3781691624) LOREN (test code = LOREN) Association of [...] tests). Lab Interpretation Abnormal (test code = 05607-9) [facility] GLUCOSE (AUTOMATED)2020-02-13 22:34:00 Test Item Value Reference Range Interpretation Comments POCT GLU (test code = 3401143847) 170 mg/dL 70-110 H Lab Interpretation (test code = Abnormal 95677-9) [facility] 1 [id number] 21:02:13 FINDINGS/IMPRESSION: The right chest tube is [...] INDICATION: rib fx COMPARISON: Chestx-ray dated 02/12/2020. [facility], Radiant Results Inft User - 02/13/2020 4:03 PM CDTPROCEDURE: XR CHEST 1 VWCLINICAL INDICATION: rib fx COMPARISON: Chest x-ray dated 02/12/2020.IMPRESSIONFINDINGS/IMPRESSION:The right chest tube is unchanged in position. No residual pneumothoraxnoted. Worsening of the right chest wall subcutaneous emphysema.The lungs are clear. No pleural effusion or pneumothorax is seen. Theheartis normal in size.No acute bony abnormality.Preliminary Report Dictated by Resident: Crystal Fischer MD., have reviewed this study and agree with the abovereport.[facility] GLUCOSE (AUTOMATED) 2020-02-13 17:49:00 Test Item Value Reference Range Interpretation Comments POCT GLU (test code = 6094197139) 185 mg/dL 70-110 H Lab Interpretation (test code = Abnormal 81274-6) [facility] METABOLIC PANEL (NA, K, CL, CO2, GLUCOSE, BUN, CREATININE, CA)2020-02-13 16:05:00 Test Item Value Reference Range Interpretation Comments NA (test code = 136 mmol/L 135-145 2430822883) K (test code = 4.7 mmol/L 3.5-5 8879152770) CL (test code = 102 mmol/L 98-108 4210316392) CO2 TOTAL (test code = 26 mmol/L 23-31 6666428974) AGAP (test code = 2-16 2966099999) BUN (test code = 54 mg/dL 7-23 H 6774826048) GLUCOSE (test code = 181 mg/dL 70-110 H 9633619163) CREATININE (test code = 4.11 mg/dL 0.6-1.25 H 4919545865) CALCIUM (test code = 8.5 mg/dL 8.6-10.6 L 2975808911) eGFR Calculation mL/min/1.73m2 (Non-) (test code = 4075186863) eGFR Calculation mL/min/1.73m2 () (test code = 6928350289) LOREN (test code = LOREN) Association of [...] tests). Lab Interpretation Abnormal (test code = 22737-4) [facility] WITH [id number] 16:01:00 Test Item Value Reference Range Interpretation Comments WBC (test code = See_Comment [Automated 2890-2) message] The sy stem which generated this result transmitted reference range : 4.20 - 10.70 10*3/?L. The reference range was not used to interpret this result as normal/abnormal . RBC (test code = See_Comment L [Automated 939-8) message] The sy stem which generated this [...] RDW-SD (test code = 48.3 fL 38.5-51.6 44356-0) RDW-CV (test code = 14.2 % 12.1-15.4 788-0) PLT (test code = See_Comment [Automated 777-3) message] The sy stem which generated this result transmitted reference range : 150 - 328 10*3/ ?L. The reference r susi was not used to interpret this result as normal/abnormal . MPV (test code = 11.1 fL 9.8-13 81058-5) NRBC/100 WBC (test See_Comment [Automat ed code = 6767390852) message] The system which generated this result transmitted reference range : 0.0 - 10.0 /100 WBCs. The refer ence range was not u sed to interpret th is result as normal/abnormal . NRBC x10^3 (test code <0.01 See_Comment [Auto mated = 4097271367) message] The s ystem which generated this result transmitted reference range : 10*3/?L. The reference range was not used to interpret this result as normal/abnormal . GRAN MAT (NEUT) % 78.8 % (test code = 770-8) IMM GRAN % (test code 0.40 % = 8180764079) LYMPH % (test code = 12.4 % 736-9) MONO % (test code = 6.5 % 5905-5) EOS % (test code = 1.4 % 713-8) BASO % (test code = 0.5 % 706-2) GRAN MAT x10^3(ANC) 6.28 10*3/uL 1.99-6.95 (test code = 8531333334) IMM GRAN x10^3 (test 0.03 10*3/uL 0-0.06 code = 2349897945) LYMPH x10^3 (test code 0.99 10*3/uL 1.09-3.23 L = 731-0) MONO x10^3 (test code 0.52 10*3/uL 0.36-1.02 = 742-7) EOS x10^3 (test code = 0.11 10*3/uL 0.06-0.53 711-2) BASO x10^3 (test code 0.04 10*3/uL 0.01-0.09 = 704-7) Lab Interpretation Abnormal (test code = 97122-3) [facility] GLUCOSE (AUTOMATED)2020-02-13 14:49:00 Test Item Value Reference Range Interpretation Comments POCT GLU (test code = 7178197063) 188 mg/dL 70-110 H Lab Interpretation (test code = Abnormal 96088-3) [facility] GLUCOSE (AUTOMATED)2020-02-13 02:44:00 Test Item Value Reference Range Interpretation Comments POCT GLU (test code = 7593656289) 160 mg/dL 70-110 H Lab Interpretation (test code = Abnormal 71393-1) [facility] GLUCOSE (AUTOMATED)2020-02-12 18:57:00 Test Item Value Reference Range Interpretation Comments POCT GLU (test code = 2264984679) 172 mg/dL 70-110 H Lab Interpretation (test code = Abnormal 34578-2) [facility] [id number] 17:57:29 Unchanged right chest tube without residual [...] sided rib fractures.Preliminary Report Dictated by Resident: Crystal Fischer MD., have reviewed this study and agree with the abovereport.[facility] GLUCOSE (AUTOMATED)2020-02-12 13:36:00 Test Item Value Reference Range Interpretation Comments POCT GLU (test code = 4366700069) 232 mg/dL 70-110 H Lab Interpretation (test code = Abnormal 09127-7) [facility] (NA, K, CL, CO2, GLUCOSE, BUN, CREATININE, CA)2020-02-12 10:32:00 Test Item Value Reference Range Interpretation Comments NA (test code = 137 mmol/L 135-145 5579675751) K (test code = 5.0 mmol/L 3.5-5 8815176738) CL (test code = 104 mmol/L 98-108 0007120365) CO2 TOTAL (test code = 25 mmol/L 23-31 5397602761) AGAP (test code = 2-16 1893108897) BUN (test code = 30 mg/dL 7-23 H 5765757347) GLUCOSE (test code = 178 mg/dL 70-110 H 6078976939) CREATININE (test code = 1.71 mg/dL 0.6-1.25 H 1830480830) CALCIUM (test code = 8.5 mg/dL 8.6-10.6 L 3715753417) eGFR Calculation mL/min/1.73m2 (Non-) (test code = 2361735848) eGFR Calculation mL/min/1.73m2 () (test code = 9379960830) LOREN (test code = LOREN) Association of [...] tests). Lab Interpretation Abnormal (test code = 66133-5) [facility]PHOSPHORUS2020-06-06 10:31:00 Test Item Value Reference Range Interpretation Comments PHOSPHORUS (test code = 7156347135) 5.4 mg/dL 2.5-5 H Lab Interpretation (test code = Abnormal 12419-8) [facility]CBC WITH [id number] 10:10:00 Test Item Value Reference Range Interpretation Comments WBC (test code = See_Comment [Automated 9090-2) message] The sy stem which generated this result transmitted reference range : 4.20 - 10.70 10*3/?L. The reference range was not used to interpret this result as normal/abnormal . RBC (test code = See_Comment L [Automated 669-8) message] The sy stem which generated this [...] RDW-SD (test code = 47.4 fL 38.5-51.6 66056-4) RDW-CV (test code = 14.3 % 12.1-15.4 788-0) PLT (test code = See_Comment [Automated 777-3) message] The sy stem which generated this result transmitted reference range : 150 - 328 10*3/ ?L. The reference r susi was not used to interpret this result as normal/abnormal . MPV (test code = 10.8 fL 9.8-13 32134-6) NRBC/100 WBC (test See_Comment [Automat ed code = 6578091393) message] The system which generated this result transmitted reference range : 0.0 - 10.0 /100 WBCs. The refer ence range was not u sed to interpret th is result as normal/abnormal . NRBC x10^3 (test code <0.01 See_Comment [Auto mated = 8371633877) message] The s ystem which generated this result transmitted reference range : 10*3/?L. The reference range was not used to interpret this result as normal/abnormal . GRAN MAT (NEUT) % 79.1 % (test code = 770-8) IMM GRAN % (test code 0.40 % = 3695593707) LYMPH % (test code = 9.6 % 736-9) MONO % (test code = 9.5 % 5905-5) EOS % (test code = 0.9 % 713-8) BASO % (test code = 0.5 % 706-2) GRAN MAT x10^3(ANC) 6.24 10*3/uL 1.99-6.95 (test code = 0737707061) IMM GRAN x10^3 (test 0.03 10*3/uL 0-0.06 code = 3663958127) LYMPH x10^3 (test code 0.76 10*3/uL 1.09-3.23 L = 731-0) MONO x10^3 (test code 0.75 10*3/uL 0.36-1.02 = 742-7) EOS x10^3 (test code = 0.07 10*3/uL 0.06-0.53 711-2) BASO x10^3 (test code 0.04 10*3/uL 0.01-0.09 = 704-7) Lab Interpretation Abnormal (test code = 67963-2) [facility] GLUCOSE (AUTOMATED)2020-02-12 03:58:00 Test Item Value Reference Range Interpretation Comments POCT GLU (test code = 7781048402) 165 mg/dL 70-110 H Lab Interpretation (test code = Abnormal 45451-5) [facility] GLUCOSE (AUTOMATED)2020-02-12 02:33:00 Test Item Value Reference Range Interpretation Comments POCT GLU (test code = 170 mg/dL 70-110 H Notifi ed Provider [id number]) Lab Interpretation (test Abnormal code = 97353-2) [facility] 1 [id number] 01:02:10 Interval advancement of right chest tube [...] reviewed this study and agree with theabove report.[facility] CenterCritical [id number] 21:34:22Cheryl Hughes MD ? ? 02/11/2020 ?4:34 [...] studies and ordering and performing treatments and interventionsO[facility]Bend Medical CenterCOVID- 19 (ID NOW RAPID TESTING)2020-02-11 18:06:00 Test Item Value Reference Range Interpretation Comments SARS-CoV-2 Rapid ID NOW Not Detected Not Detected (test code = 57238-0) LOREN (test code = LOREN) ID NOW COVID-19 Assay is an isothermal nucleic acid amplification test intended for the qualitative detection of nucleic acid from SARS-CoV-2 viral RNA in nasopharyngeal ([employer]IL [employer]IST) specimens. It is used under Emergency Use [...] indicated. Lab Interpretation Normal (test code = 93673-3) [facility] CenterCT TRAUMA THORACIC SPINE WO [id number] 18:01:27 No acute intracranial abnormality. No fracture [...] hemorrhage or mass effect is present. The nj-whitematter differentiation is preserved. 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 Multilevel mild to moderate degenerative changes [...] hemorrhage or mass effect is present. The nj-whitematter differentiation is preserved. A small, remote lacunar [...] made of developmental incomplete fusion of the A0xnbbybzmg arch.Multilevel mild to moderate degenerative changes are [...] treating team is aware of and treating thepneumothoraxUnHereford Regional Medical CenterCT TRAUMA LUMBAR SPINE WO [id number] 18:01:27 No acute intracranial abnormality. No fracture [...] hemorrhage or mass effect is present. The nj-whitematter differentiation is preserved. A small, remote lacunar [...] made of developmental incomplete fusion of the Y8gjjcnyhdj arch. Multilevel mild to moderate degenerative changes [...] hemorrhage or mass effect is present. The nj-whitematter differentiation is preserved. A small, remote lacunar [...] made of developmental incomplete fusion of the K9oqzjckydd arch.Multilevel mild to moderate degenerative changes are [...] treating team is aware of and treating thepneumothoraxOakBend Medical CenterCT TRAUMA HEAD WO CONTRAST 2020-02-11 18:01:27 No [...] hemorrhage or mass effect is present. The nj-whitematter differentiation is preserved. A small, remote lacunar [...] made of developmental incomplete fusion of the K2comomgpjt arch. Multilevel mild to moderate degenerative changes [...] hemorrhage or mass effect is present. The nj-whitematter differentiation is preserved. A small, remote lacunar [...] made of developmental incomplete fusion of the U0docbnbqiu arch.Multilevel mild to moderate degenerative changes are [...] treating team is aware of and treating thepneumothoraxUnHereford Regional Medical CenterCT TRAUMA CERVICAL SPINE WO [id number] 18:01:27 No acute intracranial abnormality. No fracture [...] hemorrhage or mass effect is present. The nj-whitematter differentiation is preserved. A small, remote lacunar [...] made of developmental incomplete fusion of the C8pdssaqtqp arch. Multilevel mild to moderate degenerative changes [...] hemorrhage or mass effect is present. The nj-whitematter differentiation is preserved. A small, remote lacunar [...] made of developmental incomplete fusion of the Q4biipqcvdg arch.Multilevel mild to moderate degenerative changes are [...] treating team is aware of and treating thepneumothoraxUnHereford Regional Medical CenterCT TRAUMA THORAX W CONTRAST 2020-02-11 17:59:251. Large [...] diverti culosis of the sigmoid and descending colonUnHereford Regional Medical CenterCT TRAUMA ABDOMEN PELVIS W [id number] 17:59:251. Large right pneumothorax2. Nondisplaced fractures involving [...] diverti culosis of the sigmoid and descending colonUnHereford Regional Medical CenterXR CHEST 1 [id number] 17:45:46CHEST PORTABLE ONE VIEW HISTORY:Dyspnea, pneumothorax TECHNIQUE: [...] Hughes at 12:45 PM by phone on 02/11/2020UnHereford Regional Medical CenterTroponin [id number] 17:32:00 Test Item Value Reference Range Interpretation Comments TROPONIN I (test <0.012 See_Comment [Automated code = 2175327605) message] The system which generated this result [...] ? Lab Interpretation Normal (test code = 47195-3) [facility] (NA, K, CL, CO2, GLUCOSE, BUN, CREATININE, CA)2020-02-11 17:21:00 Test Item Value Reference Range Interpretation Comments NA (test code = 139 mmol/L 135-145 9461490818) K (test code = 4.6 mmol/L 3.5-5 6789428908) CL (test code = 107 mmol/L 98-108 6152627370) CO2 TOTAL (test code = 27 mmol/L 23-31 9069623718) AGAP (test code = 2-16 5825642729) BUN (test code = 22 mg/dL 7-23 6017144042) GLUCOSE (test code = 166 mg/dL 70-110 H 7093765780) CREATININE (test code = 1.12 mg/dL 0.6-1.25 9786462415) CALCIUM (test code = 9.4 mg/dL 8.6-10.6 1872473942) eGFR Calculation mL/min/1.73m2 (Non-) (test code = 7601617111) eGFR Calculation mL/min/1.73m2 () (test code = 8109720905) LOREN (test code = LOREN) Association of [...] tests). Lab Interpretation Abnormal (test code = 32983-4) [facility] CenterHepatic Function Panel (ALB, T.PRO, BILI T, BU/BC, ALT, AST, ALK PHOS)2020-02-11 17:21:00 Test Item Value Reference Range Interpretation Comments TOTAL BILI (test code = 0752165199) 0.6 mg/dL 0.1-1.1 BILI UNCON (test code = 2102859492) 0.7 mg/dL 0.1-1.1 BILI CONJ (test code = 5427798556) 0.0 mg/dL 0-0.3 T PROTEIN (test code = 3230940034) 7.8 g/dL 6.3-8.2 ALBUMIN (test code = 3494542221) 4.4 g/dL 3.5-5 ALK PHOS (test code = 6873549823) 79 U/L 34-122 ALTv (test code = 1742-6) 43 U/L 5-50 AST(SGOT) (test code = 6277481732) 63 U/L 13-40 H Lab Interpretation (test code = Abnormal 57709-2) [facility] CenterProthrombin Time (PT) / [id number] 17:21:00 Test Item Value Reference Range Interpretation [...] tions. Lab Interpretation (test Normal code = 80597-9) [facility] CenteraPTT2020-06-05 17:20:00 Test Item Value Reference Range Interpretation Comments APTT Patient (test See_Comment [Automat ed code = 3173-2) message] The system which generated this result transmitted reference range : 23 - 38 Seconds . The reference range was not used to interpr et this result as normal/abnormal . LOREN (test code = LOREN) The [facility] patient population mean normal value for aPTT is 30 seconds. Lab Interpretation Normal (test code = 90933-7) [facility] CenterLipase [id number] 17:20:00 Test Item Value Reference Range Interpretation Comments LIPASE (test code = 4851194222) 118 U/L 0-220 Lab Interpretation (test code = Normal 90690-0) [facility] CenterCBC WITH [id number] 17:07:00 Test Item Value Reference Range Interpretation Comments WBC (test code = See_Comment [Automated message] 8526-2) The system [employer] generated this result transmitted ref erence range: 4.20 - 1 0.70 10*3/?L. The re ference range was not u sed to interpret this result as normal/abnor mal. RBC (test code = See_Comment [Automated message] 9-8) The system [employer] generated this result transmitted ref erence range: [...] RDW-SD (test code 45.1 fL 38.5-51.6 = 78569-6) RDW-CV (test code 13.7 % 12.1-15.4 = 788-0) PLT (test code = See_Comment [Automated message] 467-3) The system [employer] generated this result transmitted ref erence range: 150 - 32 8 10*3/?L. The re ference range was not u sed to interpret this result as normal/abnor mal. MPV (test code = 10.5 fL 9.8-13 42936-2) NRBC/100 WBC (test See_Comment [Automat ed message] code = 1831362012) The syste m which generated this result transmitted ref erence range: 0.0 - 10 .0 /100 WBCs. The refer ence range was not u sed to interpret this result as normal/abnor mal. NRBC x10^3 (test <0.01 See_Comment [Automated message] code = 4707932705) The syste m which generated this result transmitted ref erence range: 10*3/?L. The reference range was not used to interpr et this result as normal/abnormal . GRAN MAT (NEUT) % 73.2 % (test code = 770-8) IMM GRAN % (test 0.90 % code = 7557695870) LYMPH % (test code 16.8 % = 736-9) MONO % (test code 6.3 % = 5905-5) EOS % (test code = 2.1 % 713-8) BASO % (test code 0.7 % = 706-2) GRAN MAT 5.14 10*3/uL 1.99-6.95 x10^3(ANC) (test code = 8964297872) IMM GRAN x10^3 0.06 10*3/uL 0-0.06 (test code = 1189163429) LYMPH x10^3 (test 1.18 10*3/uL 1.09-3.23 code = 731-0) MONO x10^3 (test 0.44 10*3/uL 0.36-1.02 code = 742-7) EOS x10^3 (test 0.15 10*3/uL 0.06-0.53 code = 711-2) BASO x10^3 (test 0.05 10*3/uL 0.01-0.09 code = 704-7) [facility]
[2023-07-23 10:02] LABS: Arterial Blood Carboxyhemoglob 1.3 % (0-1.5); Blood Gas Oxyhemoglobin 93.1 % (94-97); Blood O2 Saturation 95.9 % (92-98.5)
[2023-07-23 10:15] LABS: Absolute Lymphocytes (CBC) 0.3 K/uL (0.7-4.9); Hematocrit 40.5 % (39.6-49.0); Lymphocytes % 1.9 % (15.3-44.8); MCV 90.1 fL (80-100); MPV 8.4 fL (7.6-11.3); Platelets 284 thou/uL (152-406)
[2023-07-23] MEDS ORDERED: NA CHLORIDE 0.9% 250 ML ONE (10:23)
[2023-07-23] MEDS ORDERED: CEFTRIAXONE 1000 MG/VIAL ONE (10:23)
--- NOTE | 2023-07-23 10:29 | RAD REPORT ---
EXAM DESCRIPTION: RADChest Single View07/23/2023 10:10 am CLINICAL HISTORY: COUGH COMPARISON: Chest Single View dated 03/02/2023; Chest Single View dated 02/28/2023; Chest Single View dated 12/17/2022; Chest Single View dated 12/13/2022 TECHNIQUE: Portable AP view of the chest. FINDINGS: The lungs are clear. Diffuse hyperinflation. Deformities along the right seventh through n inth ribs, stable, suggestive of healed fractures. No pneumothorax or effusion. The cardiomediastinal contours are unremarkable. Sequelae of CABG. IMPRESSION: No acute cardiopulmonary process. Chronic findings as above.
[2023-07-23 10:33] LABS: Protime INR 1.46
[2023-07-23 10:34] LABS: Bilirubin Total 0.4 mg/dL (0.2-1.0); Protein, Total 7.4 g/dL (6.4-8.2)
[2023-07-23 10:38] LABS: Potassium 6.2 mEq/L (3.5-5.1)
[2023-07-23 10:45] LABS: Blood Morphology Comment NOT SEEN (NOT SEEN); Platelet Estimate ADEQ; White Blood Cell Scan OK (OK)
--- NOTE | 2023-07-23 10:57 | ER ---
Nurse's Notes [facility] Name: Sergey Nye Age: 73 yrs Sex: Male : 1950 Arrival Date: 07/23/2023 Time: 09:30 Bed 16 Private MD: Diagnosis: Diabetes mellitus due to underlying condition with hyperosmolarity without nonketotic hyperglycemic-hyperosmolar coma (NKHHC);Psuedohyponatremia;Sepsis, unspecified organism;Hyperkalemia Presentation: 07/23 09:36 Chief complaint: EMS states: toned out to home for h/s, dizziness and weakness. Recent eh3 Hx of pneumonia 2-3 weeks ago and pt states he has about 6 doses of oral antibiotics left. Hx of DM and HTN, doesn't remember if he took home meds this AM. EMS report BP of 210 systolic on arrival and BGL read HIGH. O2 sat 95% on RA, pt states he uses home O2 PRN, EMS initiated O2 at 3L NC. Coronavirus screen: Vaccine status: Patient reports receiving the 2nd dose of the covid vaccine. Ebola Screen: No symptoms or risks identified at this time. Initial Sepsis Screen: Does the patient meet any 2 criteria? HR > 90 bpm. No. Patient's initial sepsis screen is negative. Does the patient have a suspected source of infection? Yes: Productive cough/pneumonia. Risk Assessment: Do you want to hurt yourself or someone else? Patient reports no desire to harm self or others. Onset of symptoms was July 23, 2023. 09:36 Method Of Arrival: EMS: [facility] 3 09:36 Acuity: RAYA 3 eh3 09:39 Care prior to arrival: Medication(s) given: Normal saline infusion, 1000 mL, IV eh3 initiated. 20 GA, in the right antecubital area, Oxygen administered. via nasal cannula. Triage Assessment: 09:39 Headache History: Denies prior headaches. General: Appears in no apparent distress. eh3 uncomfortable, Behavior is cooperative, appropriate for age. Pain: Complains of pain in right muslim and left muslim Pain does not radiate. Pain currently is 6 out of 10 on a pain scale. Pain began suddenly, 3 hours ago. Also complains of no other associated symptoms. Neuro: Level of Consciousness is awake, alert, confused, Oriented to person, place, time, situation. Cardiovascular: Capillary refill < 3 seconds Patient's skin is warm and dry. Respiratory: Airway is patent Respiratory effort is even, unlabored, Respiratory pattern is regular, symmetrical. GI: Abdomen is round non-distended. Derm: Skin is pink, warm \T\ dry. Musculoskeletal: Circulation, motion, and sensation intact. Historical: - Allergies: 09:39 PENICILLINS; eh3 - Home Meds: 09:39 Eliquis oral [Active]; eh3 - PMHx: 09:39 Anxiety; Atrial fibrillation; COPD; diabetes mellitus; Hypertensive disorder; Prostate eh3 Cancer; - Immunization history:: Adult Immunizations unknown. - Social history:: Smoking status: unknown. Screenin:36 [facility] ED Fall Risk Assessment (Adult) Score/Fall Risk Level 0 - 2 = Low Risk. Abuse eh3 screen: Denies threats or abuse. Denies injuries from another. Nutritional screening: No deficits noted. Tuberculosis screening: No symptoms or risk factors identified. Assessment: 09:36 Reassessment: No changes from previously documented assessment. See triage assessment. eh3 Pain: Complains of pain in left muslim and right muslim. 10:00 Reassessment: Patient appears in no apparent distress at this time. Patient and/or 3 family updated on plan of care and expected duration. Pain level reassessed. Patient is alert, oriented x 3, equal unlabored respirations, skin warm/dry/pink. 11:00 Reassessment: Patient appears in no apparent distress at this time. Patient and/or 3 family updated on plan of care and expected duration. Pain level reassessed. Patient is alert, oriented x 3, equal unlabored respirations, skin warm/dry/pink. 12:00 Reassessment: Patient appears in no apparent distress at this time. Patient and/or 3 family updated on plan of care and expected duration. Pain level reassessed. Patient is alert, oriented x 3, equal unlabored respirations, skin warm/dry/pink. Vital Signs: 09:30 BP 218 / 100; Pulse 94; Resp 18; Pulse Ox 97% on R/A; eh3 09:36 BP 210 / 100; Pulse 94; Resp 20; Temp 97.6(O); Pulse Ox 97% on R/A; Pain 6/10; eh3 10:00 BP 221 / 90; Pulse 95; Resp 20; Pulse Ox 96% on R/A; eh3 10:30 BP 183 / 160; Pulse 101; Resp 20; Pulse Ox 97% on R/A; eh3 10:54 BP 183 / 160; Pulse 100; ec2 11:00 BP 198 / 106; Pulse 97; Resp 20; Pulse Ox 96% on R/A; eh3 11:30 BP 180 / 99; Pulse 88; Resp 19; Pulse Ox 98% on R/A; eh3 12:00 BP 173 / 86; Pulse 82; Resp 19; Pulse Ox 97% on R/A; eh3 12:27 BP 202 / 113; Pulse 74; eh3 09:36 Pain Scale: Adult eh3 ED Course: 09:35 Patient arrived in ED. eh3 09:36 Taco Tsai MD is Attending Physician. ec2 09:36 Patient has correct armband on for positive identification. Placed in gown. Bed in low eh3 position. Call light in reach. Side rails up X2. Provided Education on: use of call warner. Client placed on continuous cardiac and pulse oximetry monitoring. NIBP monitoring applied. 09:39 Triage completed. eh3 09:39 Arm band placed on. eh3 09:45 Inserted saline lock: 22 gauge in left antecubital area, using aseptic technique. Blood eh3 collected. 10:04 Nicolasa Irving, RAJ is Primary Nurse. eh3 10:12 Chest Single View XRAY In Process Unspecified. EDMS 10:55 Margaret Smith MD is Hospitalizing Provider. ec2 12:30 No provider procedures requiring assistance completed. Patient admitted, IV remains in eh3 place. Administered Medications: 10:20 Drug: NS 0.9% IV 2000 ml IV at 2 bolus Per protocol; 2000mL bolus Route: IV; Rate: 2 eh3 bolus; Site: left antecubital; 12:10 Follow up: IV Status: Completed infusion; IV Intake: 2000ml eh3 10:20 Drug: Rocephin IV 1 grams IV at calculated rate once; Given slow IV push per pharmacy eh3 instructions Route: IV; Rate: calculated rate; Site: left antecubital; 11:00 Follow up: Response: No adverse reaction; IV Status: Completed infusion; IV Intake: [id number] 10:35 Drug: AZITHromycin IVPB 500 mg IVPB once over 1 hrs; (mix in 250 mL NS) Route: IVPB; eh3 Infused Over: 1 hrs; Site: right antecubital; 12:00 Follow up: Response: No adverse reaction; IV Status: Completed infusion; IV Intake: eh3 250ml 11:26 Drug: Insulin Drip - (Insulin Regular Human IVP 100 units, NS 0.9% IV 100 ml) IV at eh3 calculated rate continuous; Standard concentration 1unit/ml; Dose for DKA is 0.1 units/kg/hr {Co-Signature: db (Jojo Babb RN).} Route: IV; Rate: calculated rate; Site: right antecubital; 12:27 Follow up: Response: No adverse reaction; IV Status: Infusion continued upon admission eh3 12:00 Drug: Labetalol IV 10 mg IV at bolus once Route: IV; Rate: bolus; Site: left 3 antecubital; 12:27 Follow up: BP 202 / 113; Pulse 74 bpm; Response: No adverse reaction; IV Intake: 10ml eh3 12:28 Follow up: IV Status: Completed infusion eh3 Medication: 12:30 VIS not applicable for this client. eh3 Intake: 11:00 IV: 50ml; Total: 50ml. eh3 12:00 IV: 250ml; Total: 300ml. eh3 12:10 IV: 2000ml; Total: 2300ml. eh3 12:27 IV: 10ml; Total: 2310ml. eh3 Outcome: 10:56 Decision to Hospitalize by Provider. ec2 12:30 Admitted to ICU accompanied by nurse, via stretcher, room 1, Report called to bedside eh3 report received by RN 12:30 Condition: stable 12:30 Instructed on the need for admit, 12:32 Patient left the ED. 3 Signatures: Dispatcher [employer] Nicolasa Duran RN RN eh3 Taco Tsai MD MD ec2 Jojo Babb RN db
--- NOTE | 2023-07-23 10:57 | EDPHYS ---
Physician Documentation [facility] Name: Sergey Nye Age: 73 yrs Sex: Male : 1950 Arrival Date: 07/23/2023 Time: 09:30 Bed 16 Private MD: ED Physician Taco Tsai HPI: 07/23 09:39 This 73 yrs old Male presents to ER via Unassigned with complaints of ec2 Headache, Dizziness, Weakness. 09:39 Patient arrives today for evaluation of generalized weakness in the setting of a recent ec2 pneumonia diagnosis. States that he was diagnosed with pneumonia just over a week ago and still has some antibiotics left lower. States that he was generally weak and had poor p.o. intake and felt lightheaded as well as body aches and headache. Patient reports he is diabetic. EMS reports that his blood sugar was reading as high.. Historical: - Allergies: 09:39 PENICILLINS; eh3 - Home Meds: 09:39 Eliquis oral [Active]; eh3 - PMHx: 09:39 Anxiety; Atrial fibrillation; COPD; diabetes mellitus; Hypertensive disorder; Prostate eh3 Cancer; - Immunization history:: Adult Immunizations unknown. - Social history:: Smoking status: unknown. ROS: 09:39 Constitutional: as per hpi ec2 Exam: 09:39 Constitutional: GEN: NAD Head: atraumatic Eyes: EOMI Ears: External ears are ec2 normal. CV: regular rate LUNGS: no respiratory distress, no wheezes, rales, rhonchi ABD: non-distended SKIN: no evidence of rashes MSK: no evidence of trauma NEURO: moves all extremities equally Vital Signs: 09:30 BP 218 / 100; Pulse 94; Resp 18; Pulse Ox 97% on R/A; eh3 09:36 BP 210 / 100; Pulse 94; Resp 20; Temp 97.6(O); Pulse Ox 97% on R/A; Pain 6/10; eh3 10:00 BP 221 / 90; Pulse 95; Resp 20; Pulse Ox 96% on R/A; eh3 10:30 BP 183 / 160; Pulse 101; Resp 20; Pulse Ox 97% on R/A; eh3 10:54 BP 183 / 160; Pulse 100; ec2 11:00 BP 198 / 106; Pulse 97; Resp 20; Pulse Ox 96% on R/A; eh3 11:30 BP 180 / 99; Pulse 88; Resp 19; Pulse Ox 98% on R/A; eh3 12:00 BP 173 / 86; Pulse 82; Resp 19; Pulse Ox 97% on R/A; eh3 12:27 BP 202 / 113; Pulse 74; eh3 09:36 Pain Scale: Adult 3 MDM: 09:31 Patient medically screened. ec2 09:39 ED course: Patient with history of diabetes arrives today due to concern for ec2 generalized weakness in setting of recent pneumonia diagnosis. Examination remarkable for nontoxic individual who is in no acute respiratory distress with reassuring pulmonary sounds. Given the high readings on glucometer with EMS, concern will be for possible DKA. Additionally considering pneumonia, viral process. We will give the patient additional crystalloid, obtain a septic work-up and empirically treat with antibiotics. Currently considering DKA, pneumonia, viral process.. 10:46 ED course: Patient with marked hyperglycemia with a glucose of 1200. Significant renal ec2 dysfunction with a creatinine of 2.75. Pseudohyponatremia noted. Lactic within normal ranges. Chest x-ray shows no acute intrathoracic process. We will start the patient on insulin drip given the marked hyperglycemia, suspect HHS given the patient's slight alteration in his mental status. pH status is reassuring. Additionally no anion gap elevation. . 10:48 Data reviewed: vital signs. ec2 07/23 09:38 Order name: Blood Culture Adult (2) ec2 07/23 09:38 Order name: CBC with Diff; Complete Time: 10:48 ec2 07/23 09:38 Order name: CMP; Complete Time: 10:45 ec2 07/23 09:38 Order name: Lactate w/ 2H reflex if indic.; Complete Time: 10:45 ec2 07/23 09:38 Order name: Protime (+inr); Complete Time: 10:45 ec2 07/23 09:38 Order name: Ptt, Activated; Complete Time: 10:45 ec2 07/23 09:38 Order name: ABG; Complete Time: 10:20 ec2 07/23 09:39 Order name: UAM ec2 07/23 09:41 Order name: COVID-19 SARS RT PCR ec2 07/23 09:41 Order name: Influenza Screen (a \T\ B) ec2 07/23 10:45 Order name: CBC Smear Scan; Complete Time: 10:48 EDMS 07/23 10:47 Order name: Osmolality, Serum ec2 07/23 10:47 Order name: Magnesium ec2 07/23 10:47 Order name: Phosphorus ec2 07/23 11:52 Order name: Glucose, Ancillary Testing EDMS 07/23 09:38 Order name: Chest Single View XRAY; Complete Time: 10:45 ec2 07/23 09:38 Order name: EKG; Complete Time: 09:40 ec2 07/23 11:33 Order name: CONS Physician Consult EDMS 07/23 09:38 Order name: Accucheck; Complete Time: 09:42 ec2 07/23 09:38 Order name: Cardiac monitoring; Complete Time: 09:42 ec2 07/23 09:38 Order name: EKG - Nurse/Tech; Complete Time: 09:42 ec2 07/23 09:38 Order name: IV Saline Lock - Large Bore; Complete Time: 10:04 ec2 07/23 09:38 Order name: Labs collected and sent; Complete Time: 10:04 ec2 07/23 09:38 Order name: O2 Per Protocol; Complete Time: 09:42 ec2 07/23 09:38 Order name: O2 Sat Monitoring; Complete Time: 09:42 ec2 07/23 09:38 Order name: Vital Signs; Complete Time: 09:42 ec2 Administered Medications: 10:20 Drug: NS 0.9% IV 2000 ml IV at 2 bolus Per protocol; 2000mL bolus Route: IV; Rate: 2 eh3 bolus; Site: left antecubital; 12:10 Follow up: IV Status: Completed infusion; IV Intake: 2000ml eh3 10:20 Drug: Rocephin IV 1 grams IV at calculated rate once; Given slow IV push per pharmacy eh3 instructions Route: IV; Rate: calculated rate; Site: left antecubital; 11:00 Follow up: Response: No adverse reaction; IV Status: Completed infusion; IV Intake: [id number] 10:35 Drug: AZITHromycin IVPB 500 mg IVPB once over 1 hrs; (mix in 250 mL NS) Route: IVPB; eh3 Infused Over: 1 hrs; Site: right antecubital; 12:00 Follow up: Response: No adverse reaction; IV Status: Completed infusion; IV Intake: eh3 250ml 11:26 Drug: Insulin Drip - (Insulin Regular Human IVP 100 units, NS 0.9% IV 100 ml) IV at eh3 calculated rate continuous; Standard concentration 1unit/ml; Dose for DKA is 0.1 units/kg/hr {Co-Signature: db (Jojo Babb RN).} Route: IV; Rate: calculated rate; Site: right antecubital; 12:27 Follow up: Response: No adverse reaction; IV Status: Infusion continued upon admission eh3 12:00 Drug: Labetalol IV 10 mg IV at bolus once Route: IV; Rate: bolus; Site: left 3 antecubital; 12:27 Follow up: BP 202 / 113; Pulse 74 bpm; Response: No adverse reaction; IV Intake: 10ml eh3 12:28 Follow up: IV Status: Completed infusion eh3 Disposition Summary: 07/23/23 10:56 Hospitalization Ordered Notes: Hospitalization Status: Inpatient Admission ec2 Provider: Margaret Smith ec2 Location: Intensive Care Unit ec2 Condition: Stable ec2 Problem: an acute exacerbation ec2 Symptoms: have improved ec2 Bed/Room Type: Standard ec2 Room Assignment: 1-(07/23/23 11:31) bd Diagnosis - Diabetes mellitus due to underlying condition with hyperosmolarity without ec2 nonketotic hyperglycemic-hyperosmolar coma (NKHHC) - Psuedohyponatremia ec2 - Sepsis, unspecified organism ec2 - Hyperkalemia ec2 Forms: - Medication Reconciliation Form ec2 - SBAR form ec2 - Leadership Thank You Letter ec2 Critical care time excluding procedures: 10:47 Critical care time: Bedside Care: 30 minutes, Consultation: 5 minutes. Total time: 35 ec2 minutes Signatures: Dispatcher [employer] EDAnalia Hightower Erin, RN RN 3 Taco Tsai MD MD ec2 Jojo Babb RN db Corrections: (The following items were deleted from the chart) 09:36 09:36 Patient medically screened. ec2 ec2 11:31 10:56 ec2 bd
[2023-07-23 11:01] LABS: Specific Gravity 1.025 (1.005-1.030); Urine Bacteria None Seen /HPF (<20); Urine Bilirubin NEGATIVE (Negative); Urine Blood 1+ (Negative); Urine Clarity Clear (Clear); Urine Color Colorless (Yellow); Urine Glucose 4+ (Over) (Negative); Urine Protein 1+ (Negative); Urine Urobilinogen Normal (Normal)
--- NOTE | 2023-07-23 11:30 | P.HP ---
Certification for Inpatient Patient admitted to: Inpatient With expected LOS: <2 Midnights Patient will require the following post-hospital care: None Practitioner: I am a practitioner with admitting privileges, knowledge of patient current condition, hospital course, and medical plan of care. Services: Services provided to patient in accordance with Admission requirements found in Title 42 Section 412.3 of the Code of Federal Regulations Patient History Date of Service: 07/23/23 Reason for admission: hyperglycemia History of Present Illness: 73 yrs old Male with past medical history of Anxiety; Atrial fibrillation; COPD; diabetes mellitus; Hypertensive disorder; Prostate Cancer resents to emergency room with generalized weakness, reports recent diagnosis of pneumonia. being treated with steroids. He reports blood sugars running "high". Very heard to understand. AOx 3, brother is at bedside. He denies chest pain, fever, chills, NVD. cough. BP 210 / 100; Pulse 94; Resp 20; Temp 97.6(O); Pulse Ox 97% on R/A; Pain 6/10; BG 1197, K6.2, Lab WBC 13.50, lactic normal 1.5 UA glucose +4, CXR IMPRESSION: No acute cardiopulmonary process. Chronic findings as above. Allergies Penicillins Allergy (Verified 12/18/22 04:43) Itching/Hives/Rash Home Medications: Apixaban [Eliquis] 5 mg PO BID #60 tab 12/19/22 Budesonide/Formoterol Fumarate [Symbicort 160-4.5 Mcg Inhaler] 2 puff IH BID #1 inhaler 12/19/22 Insulin Aspart [Novolog Flexpen] See Protocol SQ SEECOM 12/19/22 Aspirin Chewable [Aspirin Chewable*] 81 mg PO DAILY 02/28/23 Atorvastatin Calcium [Lipitor] 0.5 tab PO BEDTIME 02/28/23 Calcium Carb/Vitamin D3/Vit K1 [Calcium + D Soft Chewable Tab] 2 each PO DAILY 02/28/23 Cyanocobalamin (Vitamin B-12) [Vitamin B-12] 1 cap PO DAILY 02/28/23 Fluoxetine HCl [Prozac*] 10 mg PO DAILY 02/28/23 Insulin Detemir [Levemir Flexpen] 50 unit SQ BEDTIME 02/28/23 Ipratropium/Albuterol Sulfate [Combivent Respimat 20-100 Mcg] 1 puff IH PRN PRN 02/28/23 Latanoprost Ophth [Xalatan 0.005%*] 1 drop EACH EYE BEDTIME 02/28/23 Lisinopril [Zestril] 20 mg PO DAILY 02/28/23 Metoprolol Tartrate [Lopressor*] 25 mg PO BID 6AM 6PM 02/28/23 Tamsulosin HCl 2 tab PO BEDTIME 02/28/23 hydroCHLOROthiazide [Hydrochlorothiazide] 25 mg PO DAILY 02/28/23 oxyBUTYnin chloride [Oxybutynin Chloride] 5 mg PO BID 02/28/23 - Past Medical/Surgical History Diabetic: Yes -: Insulin-dependent diabetes -: Hypertension -: COPD -: PE -: Atrial Fibrillation -: Anxiety -: Prostate Cancer -: Right knee replacement -: Left cataract surgery Psychosocial/ Personal History: Patient lives at home with family - Family History Mother -: Heart disease Brother -: Heart disease Father -: Heart disease Notes: anuyrsm - Social History CD- Drugs: No Caffeine use: Yes Review of Systems 10-point ROS is otherwise unremarkable Physical Examination - Physical Exam General: Alert, In no apparent distress, Oriented x3, Obese HEENT: Atraumatic, Normocephalic Neck: Supple, 2+ carotid pulse no bruit Respiratory: Normal air movement, Diminished Cardiovascular: Normal pulses, Regular rate/rhythm Capillary refill: <2 Seconds Gastrointestinal: Normal bowel sounds, Soft and benign Musculoskeletal: No clubbing, No swelling Integumentary: No rashes, No breakdown Neurological: Normal speech, Normal strength at 5/5 x4 extr, Other (genernalized weakness) - Studies Laboratory Data (last 24 hrs) 07/23/23 07/23/23 07/23/23 10:00 10:00 10:00 WBC 13.50 H Hgb 13.2 L Hct 40.5 Plt Count 284 PT 16.1 H INR 1.46 APTT 32.7 Sodium 127 L Potassium 6.2 H* BUN 107 H Creatinine 2.75 H Glucose 1197 H* Total Bilirubin 0.4 AST 16 ALT 47 Alkaline Phosphatase 493 H Microbiology Data (last 24 hrs): 07/23/23 10:44 Nasopharnyx Influenza Type A Antigen Screen - Final 07/23/23 10:44 Nasopharnyx Influenza Type B Antigen Screen - Final Assessment and Plan - Plan Assessment/Plan Diabetes HHS with hyperglycemia Admitted to ICU, insulin drip Every 4 hours BMPs BG 1197 Lab WBC 13.50, lactic normal 1.5 UA glucose +4, CXR IMPRESSION: No acute cardiopulmonary process. Chronic findings as above. Azithromycin, ceftriaxone Hypertensive urgency As needed antihypertensives Resume appropriate home medications P 210 / 100; Pulse 94; Resp 20; Temp 97.6(O); Pulse Ox 97% on R/A; Pain 6/10; Acute on chronic kidney injury unknown baseline Trend kidney function Nephrology consult Hyperkalemia K6.2, Atrial fibrillation chronic COPD History of prostate cancer Resume appropriate home medications DVT prophylaxis Full code Diet n.p.o. Discharge Plan: Home Plan to discharge in: 48 Hours - Advance Directives Does patient have a Living Will: No Does patient have a Durable POA for Healthcare: No - Code Status/Comfort Care Code Status Assessed: No Code Status: Full Code Physician Review: Patient Assessed, Agree with Above Assessment and Plan Critical Care: Yes Time Spent Managing Pts Care (In Minutes): 60
[2023-07-23] MEDS ORDERED: ALBUTEROL 2.5 MG/3 ML NEB SOL NEB PRN (11:45)
[2023-07-23] MEDS ORDERED: IPRATROPIUM BROM 0.5MG/2.5ML NEB PRN (11:46)
[2023-07-23 12:02] LABS: Magnesium 2.6 mg/dL (1.6-2.4)
[2023-07-23] MEDS ORDERED: LABETALOL 20 MG/4ML SYRINGE IV ONE (12:10)
[2023-07-23] MEDS: HYDRALAZINE HCL 20 MG/ML VIAL IV PRN (12:47)
[2023-07-23] MEDS ORDERED: HYDRALAZINE HCL 20 MG/ML VIAL ONE (12:56)
[2023-07-23] MEDS ORDERED: ONDANSETRON 4 MG/2 ML VIAL IV PRN (13:01)
[2023-07-23] MEDS ORDERED: ACETAMINOPHEN 500 MG TAB PO PRN (13:01)
[2023-07-23] MEDS: D5 0.45 NS 1,000 ML IV SCH ×2 (13:01→19:41)
[2023-07-23] MEDS ORDERED: INSULIN -REGULAR HUMAN 100 UNIT in NA CHLORIDE 0.9% 100 ML IV SCH (13:14)
[2023-07-23] MEDS: NA CHLORIDE 0.9% 1,000 ML IV SCH ×2 (16:43→19:41)
[2023-07-23 17:13] LABS: Potassium 4.1 mEq/L (3.5-5.1)
[2023-07-23] MEDS: INSULIN -REGULAR HUMAN 100 UNIT in NA CHLORIDE 0.9% 100 ML IV SCH ×2 (17:48→19:03)
--- NOTE | 2023-07-23 20:07 | P.CNS ---
Date of Consult: 07/23/23 Reason for Consult: JERAMY Requesting Physician: Margaret Smith Primary Care Provider: [place] Chief Complaint: Hyperglycemia History of Present Illness: 73 yrs old Male with past medical history of Anxiety; Atrial fibrillation; COPD; diabetes mellitus; Hypertensive disorder; Prostate Cancer resents to emergency room with generalized weakness, reports recent diagnosis of pneumonia. being treated with steroids. He reports blood sugars running "high". Very heard to understand. AOx 3, brother is at bedside. He denies chest pain, fever, chills, NVD. cough. BP 210 / 100; Pulse 94; Resp 20; Temp 97.6(O); Pulse Ox 97% on R/A; Pain 6/10; BG 1197, K6.2, Lab WBC 13.50, lactic normal 1.5 UA glucose +4, CXR IMPRESSION: No acute cardiopulmonary process. Chronic findings as above. 09:39 This 73 yrs old Male presents to ER via Unassigned with complaints of ec2 Headache, Dizziness, Weakness. 09:39 Patient arrives today for evaluation of generalized weakness in the setting of a recent ec2 pneumonia diagnosis. States that he was diagnosed with pneumonia just over a week ago and still has some antibiotics left lower. States that he was generally weak and had poor p.o. intake and felt lightheaded as well as body aches and headache. Patient reports he is diabetic. EMS reports that his blood sugar was reading as high.. Diagnosis: Diabetes mellitus due to underlying condition with hyperosmolarity without nonketotic hyperglycemic-hyperosmolar coma ([facility]);Psuedohyponatremia;Sepsis, unspecified organism;Hyperkalemia Presentation: 07/23 09:36 Chief complaint: EMS states: toned out to home for h/s, dizziness and weakness. Recent eh3 Hx of pneumonia 2-3 weeks ago and pt states he has about 6 doses of oral antibiotics left. Hx of DM and HTN, doesn't remember if he took home meds this AM. EMS report BP of 210 systolic on arrival and BGL read HIGH. O2 sat 95% on RA, pt states he uses home O2 PRN, EMS initiated O2 at 3L [facility]. He reports getting his care at the [facility] and follows with a [facility] public service administrator. He was told that his kidneys are not doing well. No NSAIDs. Reports urinary frequency and feeling like he always has to empty his bladder. Allergies Penicillins Allergy (Verified 12/18/22 04:43) Itching/Hives/Rash Home medications list reviewed: Yes Home Medications: Apixaban [Eliquis] 5 mg PO BID #60 tab 12/19/22 Budesonide/Formoterol Fumarate [Symbicort 160-4.5 Mcg Inhaler] 2 puff IH BID #1 inhaler 12/19/22 Insulin Aspart [Novolog Flexpen] See Protocol SQ [facility] 12/19/22 Aspirin Chewable [Aspirin Chewable*] 81 mg PO DAILY 02/28/23 Atorvastatin Calcium [Lipitor] 0.5 tab PO BEDTIME 02/28/23 Calcium Carb/Vitamin D3/Vit K1 [Calcium + D Soft Chewable Tab] 2 each PO DAILY 02/28/23 Cyanocobalamin (Vitamin B-12) [Vitamin B-12] 1 cap PO DAILY 02/28/23 Fluoxetine HCl [Prozac*] 10 mg PO DAILY 02/28/23 Insulin Detemir [Levemir Flexpen] 50 unit SQ BEDTIME 02/28/23 Ipratropium/Albuterol Sulfate [Combivent Respimat 20-100 Mcg] 1 puff IH PRN PRN 02/28/23 Latanoprost Ophth [Xalatan 0.005%*] 1 drop EACH EYE BEDTIME 02/28/23 Lisinopril [Zestril] 20 mg PO DAILY 02/28/23 Metoprolol Tartrate [Lopressor*] 25 mg PO BID 6AM 6PM 02/28/23 Tamsulosin HCl 2 tab PO BEDTIME 02/28/23 hydroCHLOROthiazide [Hydrochlorothiazide] 25 mg PO DAILY 02/28/23 oxyBUTYnin chloride [Oxybutynin Chloride] 5 mg PO BID 02/28/23 Amiodarone HCl [Pacerone] 200 mg PO BID 07/23/23 Furosemide [Lasix] 20 mg PO BIDL 07/23/23 Losartan Potassium 25 mg PO DAILY 07/23/23 - Past Medical/Surgical History Diabetic: Yes -: Insulin-dependent diabetes -: Hypertension -: CKD (Dr. Lynn/ Dr. Flanagan) -: COPD. Hx PE -: Atrial Fibrillation -: Anxiety -: Hx Prostate Cancer/ Enlarged Prostate -: Glaucoma -: Right knee replacement -: Left cataract surgery Psychosocial/ Personal History: Patient lives at home with family - Family History Mother Medical History: Heart disease Brother History Unknown: Yes Medical History: Heart disease Father Medical History: Heart disease Notes: anuyrsm - Social History Smoking Status: Former smoker Alcohol use: No CD- Drugs: No Caffeine use: Yes Place of Residence: Home Review of Systems 10-point ROS is otherwise unremarkable General: Weakness, Malaise Genitourinary: Frequency, Retention Neurological: Confusion Physical Examination Temp Pulse Resp BP Pulse Ox 97.0 F 90 22 H 147/77 H 97 07/23/23 19:00 07/23/23 19:00 07/23/23 19:00 07/23/23 19:00 07/23/23 19:00 General: In no apparent distress, Cooperative HEENT: Atraumatic Neck: Supple Respiratory: Clear to auscultation bilaterally, Normal air movement Cardiovascular: No edema, Regular rate/rhythm Gastrointestinal: No guarding, Distended, Tenderness Musculoskeletal: No clubbing, No contractures Integumentary: No rashes, No cyanosis Neurological: Normal speech Laboratory Data (last 24 hrs) 07/23/23 07/23/23 07/23/23 11:33 10:00 10:00 WBC Hgb Hct Plt Count PT 16.1 H INR 1.46 APTT 32.7 Sodium 127 L Potassium 6.2 H* BUN 107 H Creatinine 2.75 H Glucose 1197 H* Phosphorus 3.0 Magnesium 2.6 H Total Bilirubin 0.4 AST 16 ALT 47 Alkaline Phosphatase 493 H 07/23/23 10:00 WBC 13.50 H Hgb 13.2 L Hct 40.5 Plt Count 284 PT INR APTT Sodium Potassium BUN Creatinine Glucose Phosphorus Magnesium Total Bilirubin AST ALT Alkaline Phosphatase Imagings Data: EXAM DESCRIPTION: RADChest Single View07/23/2023 10:10 am CLINICAL HISTORY: COUGH COMPARISON: Chest Single View dated 03/02/2023; Chest Single View dated 02/28/2023; Chest Single View dated 12/17/2022; Chest Single View dated 12/13/2022 TECHNIQUE: Portable AP view of the chest. FINDINGS: The lungs are clear. Diffuse hyperinflation. Deformities along the right seventh through ninth ribs, stable, suggestive of healed fractures. No pneumothorax or effusion. The cardiomediastinal contours are unremarkable. Sequelae of CABG. IMPRESSION: No acute cardiopulmonary process. Chronic findings as above. Conclusions/Impression: Stage II JERAMY in the setting of hypovolemia and urinary retention CKD II with Proteinuria -No NSAIDs -Continue IVF Hypernatremia/ Dehydration -Change IVF 1/2NS Hyperkalemia -Insulin gtt HTN with CKD -Hydralazine prn DM II with Hyperglycemia Hyperglycemic Hyperosmolar State -Insulin gtt Enlarged Prostate Hx Prostate Cancer -Restart tamsulosin -Nurse to perform bladder scan to check for urinary retention Hospitalist and ER notes reviewed [facility] Thank you kindly for the consultation Critical Care: Yes (>30min)
[2023-07-23] MEDS: NACHLORIDE 0.45% 1,000 ML IV SCH (21:00)
[2023-07-23] MEDS ORDERED: ACETAMINOPHEN 500 MG TAB ONE (21:03)
[2023-07-23] MEDS: TAMSULOSIN 0.4 MG SR CAP PO SCH (21:34)
[2023-07-23] MEDS ORDERED: TAMSULOSIN 0.4 MG SR CAP ONE (21:47)
[2023-07-23 22:47] LABS: Potassium 3.9 mEq/L (3.5-5.1)
[2023-07-23] MEDS ORDERED: INSULIN GLARGINE 100 UNIT/ML SQ ONE (23:47)
[2023-07-23] MEDS ORDERED: GLUCAGON 1 MG/VIAL IM PRN (23:49)
[2023-07-23] MEDS ORDERED: D50W 25 GM/50 ML SYRINGE IV PRN (23:49)
[2023-07-24] MEDS: HYDRALAZINE HCL 20 MG/ML VIAL IV PRN (00:24)
[2023-07-24] MEDS ORDERED: HYDRALAZINE HCL 20 MG/ML VIAL ONE (00:37)
[2023-07-24] MEDS: NACHLORIDE 0.45% 1,000 ML IV SCH ×4 (02:11→22:36)
[2023-07-24] MEDS ORDERED: NACHLORIDE 0.45% 1,000 ML IV ONE (02:23)
[2023-07-24] MEDS: INSULIN REGULAR (HUMAN) 100 UNIT/ML SQ SCH ×5 (03:15→20:42)
[2023-07-24] MEDS ORDERED: INSULIN REGULAR (HUMAN) 100 UNIT/ML ONE ×2 (03:27→20:47)
[2023-07-24] MEDS ORDERED: METOPROLOL TAR 25 MG TAB ONE (05:40)
[2023-07-24] MEDS: METOPROLOL TAR 25 MG TAB PO SCH ×2 (05:45→18:00)
[2023-07-24 06:15] LABS: UR PROTEIN 86.8 mg/dL (<11.9); Urine Protein/Creatinine Ratio 1.36 ratio (<0.15)
[2023-07-24 06:45] LABS: Renal Epithelial <5 /HPF (None Seen); Specific Gravity 1.022 (1.005-1.030); Urine Bacteria None Seen /HPF (<20); Urine Bilirubin NEGATIVE (Negative); Urine Blood Negative (Negative); Urine Clarity Clear (Clear); Urine Color Light-Yellow (Yellow); Urine Glucose 1+ (Negative); Urine Protein 1+ (Negative); Urine RBC <5 /HPF (None Seen); Urine Urobilinogen Normal (Normal); Urine pH 6.5 (5.0-7.0)
[2023-07-24 07:31] LABS: UR MICROALBUMIN 63.3 mg/dL (< 1.9)
[2023-07-24 07:44] LABS: Absolute Lymphocytes (CBC) 0.7 K/uL (0.7-4.9); Hematocrit 34.7 % (39.6-49.0); Lymphocytes % 4.1 % (15.3-44.8); MCV 85.3 fL (80-100); MPV 8.1 fL (7.6-11.3); Platelets 235 thou/uL (152-406); RBC Red Blood Cell Count 4.07 M/uL (4.33-5.43)
[2023-07-24] MEDS ORDERED: lisinopriL 20 MG TAB ONE (07:54)
[2023-07-24 07:55] LABS: Magnesium 2.8 mg/dL (1.6-2.4); Phosphorus 2.6 mg/dL (2.5-4.9); Potassium 4.2 mEq/L (3.5-5.1); Uric Acid 6.3 mg/dL (3.5-7.2)
[2023-07-24] MEDS ORDERED: AZITHROMYCIN 500 MG INJ IVPB ONE (07:55)
[2023-07-24] MEDS ORDERED: APIXABAN 5 MG TABLET ONE (07:56)
[2023-07-24] MEDS: TAMSULOSIN 0.4 MG SR CAP PO SCH (08:06)
[2023-07-24] MEDS ORDERED: NA CHLORIDE 0.9% 50 ML ONE (08:06)
[2023-07-24] MEDS: APIXABAN 5 MG TABLET PO SCH ×2 (08:06→20:42)
[2023-07-24] MEDS: lisinopriL 20 MG TAB PO SCH (08:06)
[2023-07-24] MEDS ORDERED: NA CHLORIDE 0.9% 250 ML ONE (08:06)
[2023-07-24] MEDS: AMIODARONE HCL 200 MG TAB PO SCH ×2 (08:07→20:42)
[2023-07-24] MEDS: FLUOXETINE 10 MG CAP PO SCH (08:25)
[2023-07-24] MEDS ORDERED: CEFTRIAXONE 1,000 MG in NA CHLORIDE 0.9% 50 ML IVPB SCH ×4 (09:00)
[2023-07-24] MEDS ORDERED: AZITHROMYCIN IV 500 MG in NA CHLORIDE 0.9% 250 ML IVPB SCH (09:00)
[2023-07-24] MEDS ORDERED: hydroCHLOROthiazide 25 MG TAB PO SCH (09:00)
[2023-07-24 09:28] LABS: Blood Morphology Comment NOT SEEN (NOT SEEN); Platelet Estimate ADEQ; White Blood Cell Scan OK (OK)
[2023-07-24] MEDS: IPRATROPIUM BROM 0.5MG/2.5ML NEB PRN ×2 (09:36→15:01)
[2023-07-24] MEDS: ALBUTEROL 2.5 MG/3 ML NEB SOL NEB PRN ×2 (09:36→15:01)
[2023-07-24] MEDS ORDERED: ALBUTEROL 2.5 MG/3 ML NEB SOL ONE ×3 (09:44→21:07)
--- NOTE | 2023-07-24 10:45 | EKG ---
Test Date: 2023-07-23 Test Time: 09:34:39 Sfdc Technical Architect: LUIS MEASUREMENT RESULTS: Intervals: Rate: 95 AL: 166 QRSD: 118 QT: 374 QTc: 469 [place]: P: 70 AL: 166 QRS: -72 T: 73 INTERPRETIVE STATEMENTS: Normal sinus rhythm Left axis deviation Nonspecific ST abnormality Abnormal ECG Compared to ECG 02/28/2023 03:35:01 Possible ischemia no longer present ST (T wave) deviation still present Electronically Signed On 07-24-23 10:42:23 CODING TECHNICIAN by Bienvenido Rinaldi
[2023-07-24 12:21] VITALS: BMI 26.6
[2023-07-24] MEDS ORDERED: IPRATROPIUM BROM 0.5MG/2.5ML ONE ×2 (14:51→21:07)
--- NOTE | 2023-07-24 18:15 | RAD REPORT ---
EXAM DESCRIPTION: US - Renal Ultrasound-Complete - 07/24/2023 2:56 pm CLINICAL HISTORY: JERAMY/ CKD COMPARISON: Chest Single View dated 07/23/2023 TECHNIQUE: Sonographic grayscale and color flow images of the kidneys and bladder were obtained. FINDINGS: Both kidneys are normal in size, shape, and echotexture. The right kidney measures 9.7 cm in length. No hydronephrosis, focal mass, or echogenic calculi. The left kidney measures 9.6 cm in length. No hydronephrosis, focal mass, or echogenic calculi. The urinary bladder is decompressed with Valencia catheter placed. Incidentally noted partially decompressed gallbladder with mild apparent wall thickening, and echogen ic sludge versus small stones. IMPRESSION: No renal abnormalities. Bladder is decompressed with Valencia catheter in place. Incidentally noted partially decompressed gallbladder with mild apparent wall thickening, and echogen ic sludge versus small stones.
--- NOTE | 2023-07-24 20:15 | P.PN ---
Date of Service: 07/24/23 Vital Signs Temp Pulse Resp BP Pulse Ox 96.6 F L 82 22 H 170/72 H 96 07/24/23 16:00 07/24/23 18:00 07/24/23 18:00 07/24/23 18:00 07/24/23 18:00 Medications Acetaminophen (Acetaminophen 500 Mg Tab) 500 mg PO Q4HP PRN PRN Reason: Pain scale 2-4 (Mild) Last Admin: 07/23/23 20:50 Dose: 500 mg Albuterol Sulfate (Albuterol 2.5 Mg/3 Ml Neb Jenna) 2.5 mg NEB [id number] PRN PRN Reason: SHORTNESS OF BREATH Last Admin: 07/24/23 15:01 Dose: 2.5 mg Amiodarone HCl (Amiodarone Hcl 200 Mg Tab) 200 mg PO BID [facility] Last Admin: 07/24/23 08:07 Dose: 200 mg Apixaban (Apixaban 5 Mg Tablet) 5 mg PO BID [facility] Last Admin: 07/24/23 08:06 Dose: 5 mg Aspirin (Aspirin 81 Mg Chewable Tablet) 81 mg PO DAILY [facility] Atorvastatin Calcium (Atorvastatin 10 Mg Tab) 5 mg PO BEDTIME [facility] Cyanocobalamin (Cyanocobalamin 1,000 Mcg Tab) 1,000 mcg PO DAILY [facility] Fluoxetine HCl (Fluoxetine 10 Mg Cap) 10 mg PO DAILY [facility] Last Admin: 07/24/23 08:25 Dose: 10 mg Furosemide (Furosemide 20 Mg Tablet) 20 mg PO BIDL [facility] Glucagon (Glucagon 1 Mg/Vial) 1 mg IM 1X PRN; Protocol PRN Reason: HYPOGLYCEMIA Home Med (Budesonide/Formoterol Fumarate [Symbicort 160-4.5 Mcg Inhaler]) 2 puff IH BID [facility] Home Med (Calcium Carb/Vitamin D3/Vit K1 [Calcium + D Soft Chewable Tab]) 2 each PO DAILY [facility] Home Med (Latanoprost Ophth [Xalatan 0.005%*]) 1 drop EACH EYE BEDTIME IFTIKHAR Hydralazine HCl (Hydralazine Hcl 20 Mg/Ml Vial) 10 mg IV Q6HP PRN PRN Reason: Goal to achieve SBP in comment Last Admin: 07/24/23 00:24 Dose: 10 mg Sodium Chloride (Sodium Chloride 0.45%) 1,000 mls @ 150 mls/hr IV .Q6H40M [facility] Last Admin: 07/24/23 02:11 Dose: 1,000 mls Insulin Glargine (Insulin Glargine 100 Unit/Ml) 50 unit SQ BEDTIME [facility] Insulin Human Regular (Insulin Regular (Human) 100 Unit/Ml) 0 unit SQ ACHS [facility]; Protocol Last Admin: 07/24/23 16:48 Dose: 9 unit Ipratropium [place] (Ipratropium Brom 0.5mg/2.5ml) 0.5 mg NEB [id number] PRN PRN Reason: SHORTNESS OF BREATH Last Admin: 07/24/23 15:01 Dose: 0.5 mg Lisinopril (Lisinopril 20 Mg Tab) 20 mg PO DAILY [facility] Last Admin: 07/24/23 08:06 Dose: 20 mg Metoprolol Tartrate (Metoprolol Tar 25 Mg Tab) 25 mg PO BID 6AM 6PM [facility] Last Admin: 07/24/23 18:00 Dose: 25 mg Ondansetron HCl (Ondansetron 4 Mg/2 Ml Vial) 4 mg IV Q6HP PRN PRN Reason: NAUSEA / VOMITING Oxybutynin Chloride (Oxybutynin Chloride 5 Mg Tab) 5 mg PO BID [facility] Tamsulosin HCl (Tamsulosin 0.4 Mg Sr Cap) 0.8 mg PO BEDTIME [facility] Microbiology Results 07/23/23 09:45 Blood - Blood Aerobic Blood Culture - Preliminary No growth in 24 hours. 07/23/23 09:45 Blood - Blood Anaerobic Blood Culture - Preliminary No growth in 24 hours. 07/23/23 10:00 Blood - Blood Aerobic Blood Culture - Preliminary No growth in 24 hours. 07/23/23 10:00 Blood - Blood Anaerobic Blood Culture - Preliminary No growth in 24 hours. 07/23/23 10:44 Nasopharnyx Influenza Type A Antigen Screen - Final 07/23/23 10:44 Nasopharnyx Influenza Type B Antigen Screen - Final Assessment/ Plan: Nephrology No dyspnea No chest pain Feeling better Fatigue No acute events overnight Vitals, medications, blood work and imaging reviewed in the chart. General: In no apparent distress, Cooperative HEENT: Atraumatic Neck: Supple Respiratory: Clear to auscultation bilaterally, Normal air movement Cardiovascular: No edema, Regular rate/rhythm Gastrointestinal: No guarding, Distended, Tenderness Musculoskeletal: No clubbing, No contractures Integumentary: No rashes, No cyanosis Neurological: Normal speech Laboratory Data (last 24 hrs) 07/23/23 07/23/23 07/23/23 11:33 10:00 10:00 WBC Hgb Hct Plt Count PT 16.1 H INR 1.46 APTT 32.7 Sodium 127 L Potassium 6.2 H* BUN 107 H Creatinine 2.75 H Glucose 1197 H* Phosphorus 3.0 Magnesium 2.6 H Total Bilirubin 0.4 AST 16 ALT 47 Alkaline Phosphatase 493 H 07/23/23 10:00 WBC 13.50 H Hgb 13.2 L Hct 40.5 Plt Count 284 PT INR APTT Sodium Potassium BUN Creatinine Glucose Phosphorus Magnesium Total Bilirubin AST ALT Alkaline Phosphatase Imagings Data: EXAM DESCRIPTION: RADChest Single View07/23/2023 10:10 am CLINICAL HISTORY: COUGH COMPARISON: Chest Single View dated 03/02/2023; Chest Single View dated 02/28/2023; Chest Single View dated 12/17/2022; Chest Single View dated 12/13/2022 TECHNIQUE: Portable AP view of the chest. FINDINGS: The lungs are clear. Diffuse hyperinflation. Deformities along the right seventh through ninth ribs, stable, suggestive of healed fractures. No pneumothorax or effusion. The cardiomediastinal contours are unremarkable. Sequelae of CABG. IMPRESSION: No acute cardiopulmonary process. Chronic findings as above. EXAM DESCRIPTION: US - Renal Ultrasound-Complete - 07/24/2023 2:56 pm CLINICAL HISTORY: JERAMY/ CKD COMPARISON: Chest Single View dated 07/23/2023 TECHNIQUE: Sonographic grayscale and color flow images of the kidneys and bladder were obtained. FINDINGS: Both kidneys are normal in size, shape, and echotexture. The right kidney measures 9.7 cm in length. No hydronephrosis, focal mass, or echogenic calculi. The left kidney measures 9.6 cm in length. No hydronephrosis, focal mass, or echogenic calculi. The urinary bladder is decompressed with Valencia catheter placed. Incidentally noted partially decompressed gallbladder with mild apparent wall thickening, and echogenic sludge versus small stones. IMPRESSION: No renal abnormalities. Bladder is decompressed with Valencia catheter in place. Conclusions/Impression: Stage II JERAMY in the setting of hypovolemia and urinary retention CKD II with Proteinuria -No NSAIDs -Continue IVF -Renal US ordered and reviewed -[facility] Hypernatremia/ Dehydration -Continue IVF 1/2NS Hyperkalemia, resolved HTN with CKD -Continue Lisinopril -Increase Metoprolol DM II with Hyperglycemia Hyperglycemic Hyperosmolar State -Continue Lantus -RISS Anemia in chronic illness -Monitor H&H Enlarged Prostate/ Urinary Retention Hx Prostate Cancer -Continue tamsulosin -Valencia inserted for urinary retention Case reviewed with Dr. Smith Hospitalist note reviewed
[2023-07-24] MEDS: oxyBUTYnin chloride 5 MG TAB PO SCH (20:42)
[2023-07-24] MEDS: DULERA 100/5 (MOMETASONE/FORMOTEROL) INHALER IH SCH (20:46)
[2023-07-24] MEDS ORDERED: AMIODARONE HCL 200 MG TAB ONE (20:48)
[2023-07-24] MEDS ORDERED: TAMSULOSIN 0.4 MG SR CAP ONE (20:51)
[2023-07-24] MEDS ORDERED: TAMSULOSIN 0.4 MG SR CAP PO SCH (21:00)
[2023-07-24] MEDS ORDERED: ATORVASTATIN 10 MG TAB PO SCH (21:00)
[2023-07-24] MEDS ORDERED: LATANOPROST 0.005% 2.5ML OPTH OPTH SCH (21:00)
[2023-07-24] MEDS ORDERED: INSULIN GLARGINE 100 UNIT/ML SQ SCH (21:00)
[2023-07-25 02:56] LABS: Albumin 2.2 g/dL (3.4-5.0); Bilirubin Total 0.1 mg/dL (0.2-1.0); Magnesium 2.9 mg/dL (1.6-2.4); Potassium 4.2 mEq/L (3.5-5.1); Protein, Total 5.3 g/dL (6.4-8.2)
[2023-07-25 03:07] LABS: Absolute Lymphocytes (CBC) 0.5 K/uL (0.7-4.9); Hematocrit 33.5 % (39.6-49.0); Lymphocytes % 4.7 % (15.3-44.8); MCV 85.6 fL (80-100); MPV 8.6 fL (7.6-11.3); Platelets 193 thou/uL (152-406); RBC Red Blood Cell Count 3.92 M/uL (4.33-5.43)
[2023-07-25] MEDS ORDERED: METOPROLOL TAR 50 MG TAB PO SCH (06:00)
[2023-07-25] MEDS: INSULIN REGULAR (HUMAN) 100 UNIT/ML SQ SCH ×2 (07:30→11:30)
[2023-07-25] MEDS: APIXABAN 5 MG TABLET PO SCH (08:39)
[2023-07-25] MEDS: lisinopriL 20 MG TAB PO SCH (08:39)
[2023-07-25] MEDS: NACHLORIDE 0.45% 1,000 ML IV SCH (08:40)
[2023-07-25] MEDS: AMIODARONE HCL 200 MG TAB PO SCH (08:40)
[2023-07-25] MEDS: oxyBUTYnin chloride 5 MG TAB PO SCH (08:40)
[2023-07-25] MEDS: DULERA 100/5 (MOMETASONE/FORMOTEROL) INHALER IH SCH (08:49)
[2023-07-25] MEDS ORDERED: ASPIRIN 81 MG CHEWABLE TABLET PO SCH (09:00)
[2023-07-25] MEDS ORDERED: CALCIUM CARB 500MG/VIT D 200 IU TAB PO SCH (09:00)
[2023-07-25] MEDS: FLUOXETINE 10 MG CAP PO SCH (09:00)
[2023-07-25] MEDS ORDERED: CYANOCOBALAMIN 1,000 MCG TAB PO SCH (09:00)
[2023-07-25] MEDS ORDERED: FUROSEMIDE 20 MG TABLET PO SCH (09:00)
[2023-07-25 09:32] VITALS: O2SAT 97
[2023-07-25] MEDS ORDERED: NACHLORIDE 0.45% 1,000 ML IV SCH (10:09)
[2023-07-25 10:49] LABS: Hepatitis B Core Ab, Total Nonreactive (Nonreactive); Hepatitis B surface AG Interp. Nonreactive (Nonreactive); Hepatitis C Virus Ab Nonreactive (Nonreactive)
[2023-07-25 10:51] LABS: Hepatitis B Surface Ab - Quant < 3.10 mIU/mL (<8.0)
--- NOTE | 2023-07-25 11:12 | P.PN ---
Nephrology (S) Pt reports no acute complaints, doing fair, has been OOB only briefly, tires easily. Lopez remains in place, draining well. (O) Vitals, medications, blood work and imaging reviewed in the chart. General: In no apparent distress, Cooperative HEENT: Atraumatic, sclera anicteric, not on O2 Neck: Supple Respiratory: Clear to auscultation anteriorly, Normal air movement Cardiovascular: No sig edema, Regular rate/rhythm mostly Gastrointestinal: No guarding, mild distention, NT, lopez present Musculoskeletal: No muscle tenderness Integumentary: No rashes Neurological: Normal speech, awake, alert, no tremors Imagings Data: EXAM DESCRIPTION: US - Renal Ultrasound-Complete - 07/24/2023 2:56 pm CLINICAL HISTORY: JERAMY/ CKD COMPARISON: Chest Single View dated 07/23/2023 TECHNIQUE: Sonographic grayscale and color flow images of the kidneys and bladder were obtained. FINDINGS: Both kidneys are normal in size, shape, and echotexture. The right kidney measures 9.7 cm in length. No hydronephrosis, focal mass, or echogenic calculi. The left kidney measures 9.6 cm in length. No hydronephrosis, focal mass, or echogenic calculi. The urinary bladder is decompressed with Lopez catheter placed. Incidentally noted partially decompressed gallbladder with mild apparent wall thickening, and echogenic sludge versus small stones. IMPRESSION: No renal abnormalities. Bladder is decompressed with Lopez catheter in place. Conclusions/Impression: Stage II JERAMY in the setting of fluid depletion with hyperglycemia/pre-renal state, retention of urine, other CKD NOS underlying in the setting of chronic illnesses/DM -Cr level downward trending, no hydro seen on imaging s/p bladder decompression. BP lower this AM after it was sig elevated on admission, avoid relative hypotension, cont gentle hydration. Suspend diuretics temp, lower ACEi dose (which was resumed prev) Hypernatremia/ Dehydration -Resolved, Na level acceptable, pt remains on hypotonic IVF Hyperkalemia, resolved HTN with CKD -BP lower this AM, avoid rapid over-correction of BP, trend DM II with Hyperglycemia -Management per primary team Urine retention unspecified Hx Prostate Cancer s/p XRT -Pt had 1100 cc out with lopez insertion per reports, maintain lopez for now. Pt was takin both an alpha she and anti-spasmodic and the latter certainly can be assoc with urinary retention so will d/c that. OP f/u with Urology Adarsh Flanagan MD, YOLIE
[2023-07-25 17:12] VITALS: BP 111/57; TEMP 97.4
[2023-07-25] MEDS ORDERED: OPTH OPTH SCH (21:00)
[2023-07-25] MEDS ORDERED: XALATAN 0.005% OPTH SCH (21:00)
[2023-07-26] MEDS ORDERED: lisinopriL 10 MG TAB PO SCH (09:00)
== END 2023-07-25 18:05 | disposition home or self-care (01) | DRG 638 ==
LOC: ER 09:30 → 3RD-ICU 11:38 → EEVIPCON 11:38 → 2ND 07-24 21:48
PROVIDERS: ADMIT Hospitalist; ATTEND Hospitalist
DX: E11.00 Type 2 diabetes mellitus with hyperosmolarity without nonketotic hyperglycemic-hyperosmolar coma (NKHHC) (principal); I48.20 Chronic atrial fibrillation, unspecified; N17.9 Acute kidney failure, unspecified; E87.5 Hyperkalemia; I16.0 Hypertensive urgency; I12.9 Hypertensive chronic kidney disease with stage 1 through stage 4 chronic kidney disease, or unspecified chronic kidney disease; N18.2 Chronic kidney disease, stage 2 (mild); D63.1 Anemia in chronic kidney disease; D63.8 Anemia in other chronic diseases classified elsewhere; E86.0 Dehydration; J44.9 Chronic obstructive pulmonary disease, unspecified; N40.1 Benign prostatic hyperplasia with lower urinary tract symptoms; R33.8 Other retention of urine; Z88.0 Allergy status to penicillin; Z79.4 Long term (current) use of insulin; Z85.46 Personal history of malignant neoplasm of prostate; Z11.52 Encounter for screening for COVID-19; Z79.01 Long term (current) use of anticoagulants; Z79.82 Long term (current) use of aspirin; Z99.81 Dependence on supplemental oxygen; Z87.891 Personal history of nicotine dependence; Z79.899 Other long term (current) drug therapy; Z96.651 Presence of right artificial knee joint; Z86.711 Personal history of pulmonary embolism
CPT/HCPCS: 36415; 36600; 71045; 76770; 80048; 80053; 80061; 81001; 82043; 82570; 82805; 82947; 83036; 83605; 83735; 83930; 84100; 84145; 84156; 84550; 85025; 85610; 85730; 86038; 86160; 86704; 86706; 86803; 87040; 87086; 87088; 87340; 87635; 87804; 93005; 94640; 99285; J0360; J0696; J1815; J2405; J3535; J7050; J7613; J7644

== ENCOUNTER 2024-02-10 15:01 | Emergency (ER) | payer OTHER ==
--- OUTSIDE RECORDS SUMMARY | 2024-02-10 15:16 | XMS REPORT | Continuity of Care Document ---
Author Name Unknown Address [address] [facility] [address] [place] [address] [facility] Address [address] [facility] [place] [address] Care Team Providers Care Principal Security Architect Name Role Phone Giuliano Meyer MD Primary Care Physician + [phone] Rojelio Magaña Attending Clinician Unavailab Samuel Haywood Attending Clinician Unavailable Luci Villeda Attending Clinician AYSE Juan Attending Clinician UnavailAyse Jiménez Attending Clinician + [phone] [facility] Attending Clinician Unavailable Sammy HERNANDEZ, Sendignacio K.H. Attending Clinician + [phone] RYAN CHRISTIANSON K.HMurphy Attending Clinician Unavailbaldomero Jeff, [facility] Main Attending Clinician Neal Reid DO Attending Clinician [phone] Doctor Unassigned, Goodman Attending Clinician U Perri Armenta MD Attending Clinician [phone] PERRI CALL Attending Clinician Unavailable Akash ANTHONY, Tony Thorpe Attending Clinician Unavail Sheila Richards MD Attending Clinician [phone] CHERYL HUGHES Attending Clinician Unavailable Cheryl Hughes MD Attending Clinician [phone] Elvie Gamboa Admitting Clinician Unavailable Samuel Mcguire Admitting Clinician Unavailable Luci Villeda Admitting Clinician Sheila Stephens MD Admitting Clinician [phone] SHEILA LUQUE Admitting Clinician Unavailable Payers Payer Name Policy Type Policy Number Effective Date Expirati on Date Source [employer] MEDICARE ADVANTAGE [id number] 2020 00:00:00 [facility] ADMINISTRATION [id number] 1999 00:00:00 Problems Condition Name Condition Details Condition Category Status Onset Date Resolution Date Last Treatment Date Treating Clinician Comments Source Fall from ladder, initial encounter Fall from ladder, initial encounter Disease Active 02-13 00:00: 00 [facility] Traumatic fracture of ribs with pneumothor ax, right, closed, initial encounter Traumatic fracture of ribs with pneumothor ax, right, closed, initial encounter Disease Active 02-13 00:00: 00 [facility] JERAMY (acute kidney injury) JERAMY (acute kidney injury) Disease Active 02-13 00:00: 00 [facility] Trauma Trauma Disease Active 02-10 00:00: 00 [facility] Allergies, Adverse Reactions, Alerts Allergy Name Allergy Type Status Severity Reaction(s) Onset Date Inactive Date Treating Clinician Comments Source Penicill ins DA Active U USE COMMENT BUTTON 03-03 00:00: 00 [facility] PENICILL IN DRUG INGREDI Active Unknown-Cmnt 02-10 00:00: 00 [facility] Penicill in Propensi ty to adverse reaction s Active Unknown - See comments 02-10 00:00: 00 [facility] Penicill in Propensi ty to adverse reaction s Active Unknown - See comments 02-10 00:00: 00 [facility] TOMATO DRUG INGREDI Active Swelling 2006-09 00:00: 00 [facility] Tomato Propensi ty to adverse reaction s Active Swelling 2006-09 00:00: 00 Tongue [facility] NO KNOWN ALLERGIE S Drug Class Active [facility] Social History Social Habit Start Date Stop Date Quantity Comments Source Sexual orientation [facility] History of tobacco use Cigarette Smoker [facility] Exposure to SARS-CoV-2 (event) 2021-02-05 00:00:00 2021-03-07 08:25:00 Not sure [facility] History of Social function 2020-12-05 00:00:00 2020-12-05 00:00:00 [facility] Tobacco use and exposure 2020-02-11 00:00:00 2020-02-11 00:00:00 Smokeless tobacco non-user [facility] Sex Assigned At 1950 00:00:00 1950 00:00:00 [facility] Smoking Status Start Date Stop Date Source Unknown if ever smoked [facility] Ex-smoker 2020-10-06 00:00:00 2020-10-06 00:00:00 [facility] Never smoked tobacco [facility] Medications Ordered Medication Name Filled Medication Name Start Date Stop Date Current Medication? Ordering Clinician Indication Dosage Frequency Signature (SIG) Comments Components Source tc 99m-tetrofo smin (MYOVIEW) injection 43.2 millicurie 12-14 15:45: 00 12-14 15:35 :00 No [id number] 43.2mCi 43.2 millicurie , Intravenou s, ONCE, 1 dose, Camilla 12/14/20 at 1045, Routine [facility] tc 99m-tetrofo smin (MYOVIEW) injection 16.3 millicurie 12-14 13:15: 00 12-14 13:07 :00 No [id number] 16.3mCi 16.3 millicurie , Intravenou s, ONCE, 1 dose, Camilla 12/14/20 at 0815, Routine [facility] lisinopriL 20 mg tablet 12-05 00:00: 00 Yes 20mg Take 1 tablet by mouth daily. [facility] magnesium chloride (SLOW-MAG) 71.5 mg tablet 12-05 00:00: 00 Yes [id number] 71.5mg Take 1 tablet by mouth daily. [facility] aspirin 81 mg chewable tablet 10-06 17:10: 53 Yes 81mg Take 81 mg by mouth daily. [facility] omeprazole 20 mg capsule 10-06 17:10: 53 Yes 20mg Take 20 mg by mouth daily. [facility] tamsulosin 0.4 mg 24 hr capsule 10-06 17:10: 53 Yes .4mg Take 0.4 mg by mouth daily. [facility] atorvastati n 10 mg tablet 10-06 17:10: 53 Yes 5mg Take 5 mg by mouth at bedtime. [facility] FLUoxetine 10 mg capsule 10-06 17:10: 53 Yes 10mg Take 10 mg by mouth daily. [facility] metFORMIN 500 mg 24 hr tablet 10-06 17:10: 40 10-06 00:00 :00 No 500mg Take 500 mg by mouth daily with breakfast. [facility] aspirin 81 mg chewable tablet 10-06 11:10: 53 Yes 81mg Take 81 mg by mouth daily. [facility] omeprazole 20 mg capsule 10-06 11:10: 53 Yes 20mg Take 20 mg by mouth daily. [facility] tamsulosin 0.4 mg 24 hr capsule 10-06 11:10: 53 Yes .4mg Take 0.4 mg by mouth daily. [facility] atorvastati n 10 mg tablet 10-06 11:10: 53 Yes 5mg Take 5 mg by mouth at bedtime. [facility] FLUoxetine 10 mg capsule 10-06 11:10: 53 Yes 10mg Take 10 mg by mouth daily. [facility] amLODIPine 10 mg tablet 09-26 00:00: 00 Yes [id number] 10mg Take 1 tablet by mouth daily. [facility] magnesium oxide (MAGOX) 400 mg (241.3 mg magnesium) tablet 1-19 00:00: 00 12-05 00:00 :00 No 400mg Take 1 tablet by mouth daily. [facility] metformin ER 500 mg 24 hr tablet 1- 00:00: 00 03-07 00:00 :00 No TAKE TWO TABLETS BY MOUTH TWICE A DAY FOR DIABETES *DO NOT CRUSH* CHANGE IN FORMULATIO N [facility] AMLODIPINE 10 mg tablet 2019-09 2-08 00:00: 00 09-17 00:00 :00 No [id number] Take 1 tablet by mouth once daily [facility] magnesium oxide (MAGOX) 400 mg (241.3 mg magnesium) tablet 813 00:00: 00 09-17 00:00 :00 No 400mg Take 1 tablet by mouth daily. Call the office for more informatio n [facility] insulin aspart, niacinamide , 100 unit/mL (3 mL) InPn 04-13 00:00: 00 Yes INJECT 6 UNITS UNDER THE SKIN THREE TIMES A DAY 5 MINUTES BEFORE MEALS FOR DIABETES. DO NOT ADMINISTER IF A MEAL IS MISSED [facility] hydroCHLORO thiazide 25 mg tablet 03-24 00:00: 00 Yes [id number] 25mg Take 1 tablet by mouth daily. [facility] amLODIPine 10 mg tablet 03-24 00:00: 00 08-15 00:00 :00 No [id number] 10mg Take 1 tablet by mouth daily. [facility] docusate 100 mg capsule 02-17 00:00: 00 Yes [id number] 100mg Take 1 capsule by mouth daily. [facility] hydroCHLORO thiazide 12.5 mg capsule 02-17 00:00: 00 03-24 00:00 :00 No [id number] 12.5mg Take 1 capsule by mouth daily. [facility] amLODIPine 10 mg tablet 02-17 00:00: 00 03-23 00:00 :00 No [id number] 10mg Take 1 tablet by mouth daily. [facility] metFORMIN 500 mg 24 hr tablet 02-16 17:50: 22 Yes 500mg Take 500 mg by mouth daily with breakfast. [facility] aspirin 81 mg chewable tablet 02-16 17:50: 22 Yes 81mg Take 81 mg by mouth daily. [facility] omeprazole 20 mg capsule 02-16 17:50: 22 Yes 20mg Take 20 mg by mouth daily. [facility] tamsulosin 0.4 mg 24 hr capsule 02-16 17:50: 22 Yes .4mg Take 0.4 mg by mouth daily. [facility] atorvastati n 10 mg tablet 02-16 17:50: 22 Yes 5mg Take 5 mg by mouth at bedtime. [facility] FLUoxetine 10 mg capsule 02-16 17:50: 22 Yes 10mg Take 10 mg by mouth daily. [facility] hydroCHLORO thiazide 25 mg tablet 02-16 15:13: 33 02-16 00:00 :00 No 25mg Take 25 mg by mouth daily. [facility] lisinopril 20 mg tablet 02-16 15:13: 33 02-16 00:00 :00 No 20mg Take 20 mg by mouth daily. [facility] hydroCHLORO thiazide (ESIDRIX) capsule 12.5 mg 02-16 14:00: 00 Yes 12.5mg 12.5 mg, Oral, DAILY, First dose on Fri02/17/20 at 0900, Until Discontinu ed, Routine [facility] amLODIPine (NORVASC) tablet 10 mg 02-16 14:00: 00 Yes 10mg 10 mg, Oral, DAILY, First dose on Camilla 02/17/20 at 0900, Until Discontinu ed, Routine [facility] FLUoxetine (PROZAC) capsule 10 mg 02-16 14:00: 00 Yes 10mg 10 mg, Oral, DAILY, First dose on Camilla 02/17/20 at 0900, Until Discontinu ed, Routine [facility] insulin detemir U-100 (LEVEMIR U-100 INSULIN) injection 45 Units 02-16 02:00: 00 Yes 45U 45 Units, Subcutaneo us, QHS, First dose on Fri02/16/20 at 2100, Until Discontinu ed, Routine [facility] Sliding Scale Insulin - Aspart (NOVOLOG) + Fsbg Testing 02-16 01:00: 00 Yes Subcutaneo us, Q4H, First dose on Fri02/16/20 at 2000, Until Discontinu ed, Routine [facility] acetaminoph en 500 mg tablet 02-16 00:00: 00 Yes [id number] 1000mg Take 2 tablets by mouth every 8 (eight) hours as needed for Pain. [facility] methocarbam ol 500 mg tablet 02-16 00:00: 00 03-08 00:00 :00 No [id number] 500mg Take 1 tablet by mouth 4 (four) times daily as needed (muscle spasms). [facility] magnesium hydroxide (MILK OF MAGNESIA) 400 mg/5 mL suspension 30 mL 02-15 23:00: 00 02-16 00:32 :00 No 30mL 30 mL, Oral, ONCE, 1 dose, Fri02/16/20 at 1800, Routine [facility] bisacodyL (DULCOLAX) suppository 10 mg 02-15 21:30: 00 Yes 10mg 10 mg, Rectal, BID, First dose on Fri02/16/20 at 1630, Until Discontinu ed, Routine [facility] Sliding Scale Insulin - Aspart (NOVOLOG) + Fsbg Testing 02-15 17:00: 00 02-15 21:27 :26 No Subcutaneo us, Q4H, First dose on Fri02/16/20 at 1200, Until Discontinu ed, Routine [facility] Polyethylen e Glycol 3350 (MIRALAX) powder 17 g 02-15 13:15: 00 Yes 17g 17 g, Oral, BID, First dose on Fri02/16/20 at 0815, Until Discontinu ed, Routine [facility] D5W 0.45% NaCl (1/2NS) 1 L + KCL 20 mEq 02-15 11:00: 00 02-15 12:13 :20 No IV Infusion, at 20 mL/hr, CONTINUOUS , Starting Fri02/16/20 at 0600, Until Fri02/16/20 at 0713, Routine [facility] amLODIPine (NORVASC) tablet 5 mg 02-14 14:00: 00 02-16 11:43 :37 No 5mg 5 mg, Oral, DAILY, First dose on Fri02/15/20 at 0900, Until Discontinu ed, Routine [facility] D5W 0.45% NaCl (1/2NS) 1 L + KCL 20 mEq 02-14 12:45: 00 02-15 10:48 :43 No IV Infusion, at 100 mL/hr, CONTINUOUS , Starting Fri02/15/20 at 0745, Until Fri02/16/20 at 0548, [facility] 500 mL 02-13 16:30: 00 02-13 16:08 :00 No 500mL at 999 mL/hr, 500 mL, Intravenou s, ONCE, 1 dose, Fri02/14/20 at 1130, [facility] tamsulosin (FLOMAX) capsule 0.4 mg 02-13 14:00: 00 Yes .4mg 0.4 mg, Oral, DAILY, First dose on Fri02/14/20 at 0900, Until Discontinu ed, Routine [facility] omeprazole (PRILOSEC) capsule 20 mg 02-13 14:00: 00 Yes 20mg 20 mg, Oral, DAILY, First dose on Fri02/14/20 at 0900, Until Discontinu ed, Routine [facility] aspirin chewable tablet 81 mg 02-13 14:00: 00 Yes 81mg 81 mg, Oral, DAILY, First dose on Fri02/14/20 at 0900, Until Discontinu ed, [facility] lact[facility] 500 mL 02-13 03:15: 00 02-13 02:09 :00 No 500mL at 999 mL/hr, 500 mL, Intravenou s, ONCE, 1 dose, Nellis 02/13/20 at 2215, Routine [facility] atorvastati n (LIPITOR) tablet 5 mg 02-13 02:00: 00 Yes 5mg 5 mg, Oral, QHS, First dose on 02/13/20 at 2100, Until Discontinu ed, Routine [facility] lactated ringers IV infusion 1,000 mL 02-12 19:15: 00 02-12 18:24 :00 No 1000mL at 999 mL/hr, 1,000 mL, Intravenou s, ONCE, 1 dose, Nellis 02/13/20 at 1415, Routine [facility] bisacodyL (DULCOLAX) suppository 10 mg 02-12 19:15: 02-12 19:44 :00 No 10mg 10 mg, Rectal, ONCE NOW, 1 dose, Nellis 02/13/20 at 1415, Routine [facility] ondansetron (ZOFRAN (PF)) injection 4 mg 02-12 15:36: 56 Yes 4mg 4 mg, Slow IV Push, Q6HPRN, Starting 02/13/20 at 1036, Until Discontinu ed, Routine, Nausea and Vomiting (N/V) [facility] docusate (COLACE) capsule 100 mg 02-11 14:00: 00 Yes 100mg 100 mg, Oral, DAILY, First dose on Fri02/12/20 at 0900, Until Discontinu ed, Routine [facility] methocarbam ol (ROBAXIN) tablet 500 mg 02-11 01:00: 00 Yes 500mg 500 mg, Oral, QID, First dose on Fri02/11/20 at 2000, Until Discontinu ed, [facility] gabap[facility] (NEURONTIN) capsule 100 mg 02-11 01:00: 00 02-13 13:29 :41 No 100mg 100 mg, Oral, TID, First dose on Fri02/11/20 at 2000, Until Discontinu ed, Routine [facility] morpHINE 30 mg/30 mL (fixed dose) PRICING CLERK injection 02-10 23:15: 00 02-12 18:59 :51 No [facility] acetaminoph en (TYLENOL) tablet 1,000 mg 02-10 23:00: 00 Yes 1000mg 1,000 mg, Oral, Q6H, First dose on Fri02/11/20 at 1800, Until Discontinu ed, Routine [facility] Sliding Scale Insulin - Aspart (NOVOLOG) + Fsbg Testing 02-10 22:00: 00 02-15 13:15 :25 No Subcutaneo us, TID MEALS+HS, First dose on Fri02/11/20 at 1700, Until Discontinu ed, Routine [facility] celecoxib (CELEBREX) capsule 100 mg 02-10 22:00: 00 02-12 18:06 :55 No 100mg 100 mg, Oral, BID MEALS, First dose on Fri02/11/20 at 1700, Until Discontinu ed, Routine [facility] FENTanyl PF (SUBLIMAZE (PF)) injection 100 mcg 02-10 21:45: 00 02-10 20:31 :00 No 100ug 100 mcg, Slow IV Push, ONCE, 1 dose, Fri02/11/20 at 1645, STAT [facility] FENTanyl PF (SUBLIMAZE (PF)) injection 75 mcg 02-10 19:00: 00 02-10 17:52 :00 No 75ug 75 mcg, Slow IV Push, ONCE, 1 dose, Fri02/11/20 at 1400, STAT [facility] FENTanyl PF (SUBLIMAZE (PF)) injection 75 mcg 02-10 18:45: 00 02-10 17:37 :00 No 75ug 75 mcg, Slow IV Push, ONCE, 1 dose, Fri02/11/20 at 1345, STAT [facility] ceFAZolin (ANCEF) 1,000 mg in NaCl 0.9% (NS) 50 mL MINI-BAG 02-10 18:45: 00 02-10 18:06 :00 No 1000mg 1,000 mg, IV Piggyback, ONCE, 1 dose, 02/11/20 at 1345, 50 mL
Reas on for Anti-Infec tive: Surgical Prophylaxi s
Surgi arely Prophylaxi s: Cardiothor acic
Du ration of therapy: within 24 hours of surgery [facility] ondansetron (ZOFRAN (PF)) injection 4 mg 02-10 18:15: 00 02-10 17:05 :00 No 4mg 4 mg, Slow IV Push, ONCE, 1 dose, 02/11/20 at 1315, DANNY [facility] FENTanyl PF (SUBLIMAZE (PF)) injection 75 mcg 02-10 18:15: 00 02-10 17:04 :00 No 75ug 75 mcg, Slow IV Push, ONCE, 1 dose, 02/11/20 at 1315, Routine [facility] iohexol (OMNIPAQUE 350 BULK-150 mL) injection 120 mL 02-10 17:45: 00 02-10 17:32 :00 No 120mL 120 mL, Intravenou s, ONCE, 1 dose, 02/11/20 at 1245, Routine [facility] contrast previously administere d 0 mL 02-10 17:45: 00 02-10 17:32 :00 No Intravenou s, ONCE, 1 dose, 02/11/20 at 1245, Routine [facility] Immunizations Ordered Immunization Name Filled Immunization Name Date Status Comments Source SARS-COV-2 COVID-19 PFIZER VACCINE 2020-11-14 00:00:00 Completed [facility] SARS-COV-2 COVID-19 PFIZER VACCINE 2020-11-14 00:00:00 Completed [facility] SARS-COV-2 COVID-19 PFIZER VACCINE 2020-11-14 00:00:00 Completed [facility] SARS-COV-2 COVID-19 PFIZER VACCINE 2020-11-14 00:00:00 Completed [facility] SARS-COV-2 COVID-19 PFIZER VACCINE 2020-11-14 00:00:00 Completed [facility] SARS-COV-2 COVID-19 PFIZER VACCINE 2020-11-14 00:00:00 Completed [facility] SARS-COV-2 COVID-19 PFIZER VACCINE 2020-11-14 00:00:00 Completed [facility] SARS-COV-2 COVID-19 PFIZER VACCINE 2020-11-14 00:00:00 Completed [facility] SARS-COV-2 COVID-19 PFIZER VACCINE 2020-11-14 00:00:00 Completed [facility] SARS-COV-2 COVID-19 PFIZER VACCINE 2020-11-14 00:00:00 Completed [facility] SARS-COV-2 COVID-19 PFIZER VACCINE 2020-11-14 00:00:00 Completed [facility] SARS-COV-2 COVID-19 PFIZER VACCINE 2020-11-14 00:00:00 Completed [facility] Influenza High Dose 2020-06-22 00:00:00 Completed [facility] Influenza High Dose 2020-06-22 00:00:00 Completed [facility] Influenza High Dose 2020-06-22 00:00:00 Completed [facility] Influenza High Dose 2020-06-22 00:00:00 Completed [facility] Influenza High Dose 2020-06-22 00:00:00 Completed [facility] Influenza High Dose 2020-06-22 00:00:00 Completed [facility] Influenza High Dose 2020-06-22 00:00:00 Completed [facility] Influenza High Dose 2020-06-22 00:00:00 Completed [facility] Influenza High Dose 2020-06-22 00:00:00 Completed [facility] Influenza High Dose 2020-06-22 00:00:00 Completed [facility] Influenza High Dose 2020-06-22 00:00:00 Completed [facility] Influenza High Dose 2020-06-22 00:00:00 Completed [facility] Influenza High Dose 2020-06-22 00:00:00 Completed [facility] Influenza High Dose 2020-06-22 00:00:00 Completed [facility] Influenza High Dose 2020-06-22 00:00:00 Completed [facility] Influenza High Dose 2020-06-22 00:00:00 Completed [facility] Influenza High Dose 2020-06-22 00:00:00 Completed [facility] Influenza High Dose 2020-06-22 00:00:00 Completed [facility] Pneumococcal Polysaccharide, PPSV23 (PNEUMOVAX) 2019-03-17 00:00:00 Completed [facility] Pneumococcal Polysaccharide, PPSV23 (PNEUMOVAX) 2019-03-17 00:00:00 Completed [facility] Pneumococcal Polysaccharide, PPSV23 (PNEUMOVAX) 2019-03-17 00:00:00 Completed [facility] Pneumococcal Polysaccharide, PPSV23 (PNEUMOVAX) 2019-03-17 00:00:00 Completed [facility] Pneumococcal Polysaccharide, PPSV23 (PNEUMOVAX) 2019-03-17 00:00:00 Completed [facility] Pneumococcal Polysaccharide, PPSV23 (PNEUMOVAX) 2019-03-17 00:00:00 Completed [facility] Pneumococcal Polysaccharide, PPSV23 (PNEUMOVAX) 2019-03-17 00:00:00 Completed [facility] Pneumococcal Polysaccharide, PPSV23 (PNEUMOVAX) 2019-03-17 00:00:00 Completed [facility] Pneumococcal Polysaccharide, PPSV23 (PNEUMOVAX) 2019-03-17 00:00:00 Completed [facility] Pneumococcal Polysaccharide, PPSV23 (PNEUMOVAX) 2019-03-17 00:00:00 Completed [facility] Pneumococcal Polysaccharide, PPSV23 (PNEUMOVAX) 2019-03-17 00:00:00 Completed [facility] Pneumococcal Polysaccharide, PPSV23 (PNEUMOVAX) 2019-03-17 00:00:00 Completed [facility] Pneumococcal Polysaccharide, PPSV23 (PNEUMOVAX) 2019-03-17 00:00:00 Completed [facility] Pneumococcal Polysaccharide, PPSV23 (PNEUMOVAX) 2019-03-17 00:00:00 Completed [facility] Pneumococcal Polysaccharide, PPSV23 (PNEUMOVAX) 2019-03-17 00:00:00 Completed [facility] Pneumococcal Polysaccharide, PPSV23 (PNEUMOVAX) 2019-03-17 00:00:00 Completed [facility] Pneumococcal Polysaccharide, PPSV23 (PNEUMOVAX) 2019-03-17 00:00:00 Completed [facility] Pneumococcal Polysaccharide, PPSV23 (PNEUMOVAX) 2019-03-17 00:00:00 Completed [facility] Pneumococcal 13 Conjugate, PCV13 (Prevnar 13) 2017-11-18 00:00:00 Completed [facility] Pneumococcal 13 Conjugate, PCV13 (Prevnar 13) 2017-11-18 00:00:00 Completed [facility] Pneumococcal 13 Conjugate, PCV13 (Prevnar 13) 2017-11-18 00:00:00 Completed [facility] Pneumococcal 13 Conjugate, PCV13 (Prevnar 13) 2017-11-18 00:00:00 Completed [facility] Pneumococcal 13 Conjugate, PCV13 (Prevnar 13) 2017-11-18 00:00:00 Completed [facility] Pneumococcal 13 Conjugate, PCV13 (Prevnar 13) 2017-11-18 00:00:00 Completed [facility] Pneumococcal 13 Conjugate, PCV13 (Prevnar 13) 2017-11-18 00:00:00 Completed [facility] Pneumococcal 13 Conjugate, PCV13 (Prevnar 13) 2017-11-18 00:00:00 Completed [facility] Pneumococcal 13 Conjugate, PCV13 (Prevnar 13) 2017-11-18 00:00:00 Completed [facility] Pneumococcal 13 Conjugate, PCV13 (Prevnar 13) 2017-11-18 00:00:00 Completed [facility] Pneumococcal 13 Conjugate, PCV13 (Prevnar 13) 2017-11-18 00:00:00 Completed [facility] Pneumococcal 13 Conjugate, PCV13 (Prevnar 13) 2017-11-18 00:00:00 Completed [facility] Influenza High Dose 2017-06-27 00:00:00 Completed [facility] Influenza High Dose 2017-06-27 00:00:00 Completed [facility] Influenza High Dose 2017-06-27 00:00:00 Completed [facility] Influenza High Dose 2017-06-27 00:00:00 Completed [facility] Influenza High Dose 2017-06-27 00:00:00 Completed [facility] Influenza High Dose 2017-06-27 00:00:00 Completed [facility] Influenza High Dose 2017-06-27 00:00:00 Completed [facility] Influenza High Dose 2017-06-27 00:00:00 Completed [facility] Influenza High Dose 2017-06-27 00:00:00 Completed [facility] Influenza High Dose 2017-06-27 00:00:00 Completed [facility] Influenza High Dose 2017-06-27 00:00:00 Completed [facility] Influenza High Dose 2017-06-27 00:00:00 Completed [facility] Influenza Virus Vaccine 2015-06-28 00:00:00 Completed [facility] Influenza Virus Vaccine (3+ yrs) 2015-06-28 00:00:00 Completed [facility] Influenza Virus Vaccine 2015-06-28 00:00:00 Completed [facility] Influenza Virus Vaccine (3+ yrs) 2015-06-28 00:00:00 Completed [facility] Influenza Virus Vaccine 2015-06-28 00:00:00 Completed [facility] Influenza Virus Vaccine (3+ yrs) 2015-06-28 00:00:00 Completed [facility] Influenza Virus Vaccine 2015-06-28 00:00:00 Completed [facility] Influenza Virus Vaccine (3+ yrs) 2015-06-28 00:00:00 Completed [facility] Influenza Virus Vaccine 2015-06-28 00:00:00 Completed [facility] Influenza Virus Vaccine (3+ yrs) 2015-06-28 00:00:00 Completed [facility] Influenza Virus Vaccine 2015-06-28 00:00:00 Completed [facility] Influenza Virus Vaccine (3+ yrs) 2015-06-28 00:00:00 Completed [facility] Influenza Virus Vaccine 2015-06-28 00:00:00 Completed [facility] Influenza Virus Vaccine (3+ yrs) 2015-06-28 00:00:00 Completed [facility] Influenza Virus Vaccine 2015-06-28 00:00:00 Completed [facility] Influenza Virus Vaccine (3+ yrs) 2015-06-28 00:00:00 Completed [facility] Influenza Virus Vaccine 2015-06-28 00:00:00 Completed [facility] Influenza Virus Vaccine (3+ yrs) 2015-06-28 00:00:00 Completed [facility] Influenza Virus Vaccine 2015-06-28 00:00:00 Completed [facility] Influenza Virus Vaccine (3+ yrs) 2015-06-28 00:00:00 Completed [facility] Influenza Virus Vaccine 2015-06-28 00:00:00 Completed [facility] Influenza Virus Vaccine (3+ yrs) 2015-06-28 00:00:00 Completed [facility] Influenza Virus Vaccine 2015-06-28 00:00:00 Completed [facility] Influenza Virus Vaccine (3+ yrs) 2015-06-28 00:00:00 Completed [facility] TDAP 2013-06-23 00:00:00 Completed [facility] TDAP 2013-06-23 00:00:00 Completed [facility] TDAP 2013-06-23 00:00:00 Completed [facility] TDAP 2013-06-23 00:00:00 Completed [facility] TDAP 2013-06-23 00:00:00 Completed [facility] TDAP 2013-06-23 00:00:00 Completed [facility] TDAP 2013-06-23 00:00:00 Completed [facility] TDAP 2013-06-23 00:00:00 Completed [facility] TDAP 2013-06-23 00:00:00 Completed [facility] TDAP 2013-06-23 00:00:00 Completed [facility] TDAP 2013-06-23 00:00:00 Completed [facility] TDAP 2013-06-23 00:00:00 Completed [facility] Zoster(Zostavax)([facility]) 2012-06-03 00:00:00 Completed [facility] Zoster(Zostavax)([facility]) 2012-06-03 00:00:00 Completed [facility] Zoster(Zostavax)([facility]) 2012-06-03 00:00:00 Completed [facility] 2012-[facility]-03 00:00:00 Completed [facility] 2012-06-03 00:00:00 Completed [facility] 2012-06-03 00:00:00 Completed [facility] Zoster(Zostavax)([facility]) 2012-06-03 00:00:00 Completed [facility] 2012-06-03 00:00:00 Completed [facility] Zoster(Zostavax)([facility]) 2012-06-03 00:00:00 Completed [facility] Zoster(Zostavax)([facility]) 2012-06-03 00:00:00 Completed [facility] Zoster(Zostavax)([facility]) 2012-06-03 00:00:00 Completed [facility] Zoster(Zostavax)([facility]) 2012-06-03 00:00:00 Completed [facility] Influenza Virus Vaccine 2005-06-26 00:00:00 Completed [facility] Influenza Virus Vaccine 2005-06-26 00:00:00 Completed [facility] Influenza Virus Vaccine 2005-06-26 00:00:00 Completed [facility] Influenza Virus Vaccine 2005-06-26 00:00:00 Completed [facility] Influenza Virus Vaccine 2005-06-26 00:00:00 Completed [facility] Influenza Virus Vaccine 2005-06-26 00:00:00 Completed [facility] Influenza Virus Vaccine 2005-06-26 00:00:00 Completed [facility] Influenza Virus Vaccine 2005-06-26 00:00:00 Completed [facility] Influenza Virus Vaccine 2005-06-26 00:00:00 Completed [facility] Influenza Virus Vaccine 2005-06-26 00:00:00 Completed [facility] Influenza Virus Vaccine 2005-06-26 00:00:00 Completed [facility] Influenza Virus Vaccine 2005-06-26 00:00:00 Completed [facility] Influenza Virus Vaccine - Whole 1999-07-10 00:00:00 Completed [facility] Influenza Virus Vaccine - Whole 1999-07-10 00:00:00 Completed [facility] Influenza Virus Vaccine - Whole 1999-07-10 00:00:00 Completed [facility] Influenza Virus Vaccine - Whole 1999-07-10 00:00:00 Completed [facility] Influenza Virus Vaccine - Whole 1999-07-10 00:00:00 Completed [facility] Influenza Virus Vaccine - Whole 1999-07-10 00:00:00 Completed [facility] Influenza Virus Vaccine - Whole 1999-07-10 00:00:00 Completed [facility] Influenza Virus Vaccine - Whole 1999-07-10 00:00:00 Completed [facility] Influenza Virus Vaccine - Whole 1999-07-10 00:00:00 Completed [facility] Influenza Virus Vaccine - Whole 1999-07-10 00:00:00 Completed [facility] Influenza Virus Vaccine - Whole 1999-07-10 00:00:00 Completed [facility] Influenza Virus Vaccine - Whole 1999-07-10 00:00:00 Completed [facility] Tetanus/Diptheria 1999-04-19 00:00:00 Completed [facility] DTP 1999-04-19 00:00:00 Completed [facility] Tetanus/Diptheria 1999-04-19 00:00:00 Completed [facility] DTP 1999-04-19 00:00:00 Completed [facility] Tetanus/Diptheria 1999-04-19 00:00:00 Completed [facility] DTP 1999-04-19 00:00:00 Completed [facility] Tetanus/Diptheria 1999-04-19 00:00:00 Completed [facility] DTP 1999-04-19 00:00:00 Completed [facility] Tetanus/Diptheria 1999-04-19 00:00:00 Completed [facility] DTP 1999-04-19 00:00:00 Completed [facility] Tetanus/Diptheria 1999-04-19 00:00:00 Completed [facility] DTP 1999-04-19 00:00:00 Completed [facility] Tetanus/Diptheria 1999-04-19 00:00:00 Completed [facility] DTP 1999-04-19 00:00:00 Completed [facility] Tetanus/Diptheria 1999-04-19 00:00:00 Completed [facility] DTP 1999-04-19 00:00:00 Completed [facility] Tetanus/Diptheria 1999-04-19 00:00:00 Completed [facility] DTP 1999-04-19 00:00:00 Completed [facility] Tetanus/Diptheria 1999-04-19 00:00:00 Completed [facility] DTP 1999-04-19 00:00:00 Completed [facility] Tetanus/Diptheria 1999-04-19 00:00:00 Completed [facility] DTP 1999-04-19 00:00:00 Completed [facility] Tetanus/Diptheria 1999-04-19 00:00:00 Completed [facility] DTP 1999-04-19 00:00:00 Completed [facility] Influenza High Dose Unknown Completed [facility] Pneumococcal Polysaccharide, PPSV23 (PNEUMOVAX) Unknown Completed [facility] Zoster(Zostavax)(Sh ingles) Unknown Completed [facility] Tetanus/Diptheria Unknown [facility] Com[facility] Pneumococcal 13 Conjugate, PCV13 (Prevnar 13) Unknown Completed [facility] Influenza Virus Vaccine - Whole Unknown Completed [facility] SARS-COV-2 COVID-19 PFIZER VACCINE Unknown Completed [facility] DTP Unknown Completed [facility] Influenza Virus Vaccine Unknown Completed [facility] Influenza Virus Vaccine Unknown Completed [facility] Influenza High Dose Unknown Completed [facility] Influenza Virus Vaccine (3+ yrs) Unknown Completed [facility] Influenza High Dose Unknown Completed [facility] Pneumococcal Polysaccharide, PPSV23 (PNEUMOVAX) Unknown Completed [facility] Zoster(Zostavax)(Sh ingles) Unknown Completed [facility] Tetanus/Diptheria Unknown [facility] Completed [facility] Pneumococcal 13 Conjugate, PCV13 (Prevnar 13) Unknown Completed [facility] Influenza Virus Vaccine - Whole Unknown Completed [facility] SARS-COV-2 COVID-19 PFIZER VACCINE Unknown Completed [facility] DTP Unknown Completed [facility] Influenza Virus Vaccine Unknown Completed [facility] Influenza Virus Vaccine Unknown Completed [facility] Influenza High Dose Unknown Completed [facility] Influenza Virus Vaccine (3+ yrs) Unknown Completed [facility] Influenza High Dose Unknown Completed [facility] Pneumococcal Polysaccharide, PPSV23 (PNEUMOVAX) Unknown Completed [facility] Zoster(Zostavax)(Sh ingles) Unknown Completed [facility] Tetanus/Diptheria Unknown [facility] Pneumococcal 13 Conjugate, PCV13 (Prevnar 13) Unknown Completed [facility] Influenza Virus Vaccine - Whole Unknown Completed [facility] SARS-COV-2 COVID-19 PFIZER VACCINE Unknown Completed [facility] DTP Unknown Completed [facility] Influenza Virus Vaccine Unknown Completed [facility] Influenza Virus Vaccine Unknown Completed [facility] Influenza High Dose Unknown Completed [facility] Influenza Virus Vaccine (3+ yrs) Unknown Completed [facility] Influenza High Dose Unknown Completed [facility] Pneumococcal Polysaccharide, PPSV23 (PNEUMOVAX) Unknown Completed [facility] Zoster(Zostavax)(Sh ingles) Unknown Completed [facility] Tetanus/Diptheria Unknown Completed [facility] TDAP Unknown Completed [facility] Pneumococcal 13 Conjugate, PCV13 (Prevnar 13) Unknown Completed [facility] Influenza Virus Vaccine - Whole Unknown Completed [facility] DTP Unknown Completed [facility] Influenza Virus Vaccine Unknown Completed [facility] Influenza Virus Vaccine Unknown Completed [facility] Influenza High Dose Unknown Completed [facility] Influenza Virus Vaccine (3+ yrs) Unknown Completed [facility] Vital Signs Vital Name Observation Time Observation Value Comments S ource Systolic blood pressure 2021-03-07 13:45:00 132 mm[Hg] [facility] Diastolic blood pressure 2021-03-07 13:45:00 73 mm[Hg] [facility] Heart rate 2021-03-07 13:45:00 54 /min [facility] Body temperature 2021-03-07 13:44:00 35.67 Suze [facility] Body height 2021-03-07 13:44:00 170.2 cm [facility] Body weight 2021-03-07 13:44:00 81.693 kg [facility] BMI 2021-03-07 13:44:00 28.21 kg/m2 [facility] Oxygen saturation in Arterial blood by Pulse oximetry 2021-03-07 13:44:00 97 /min [facility] Systolic blood pressure 2020-12-05 18:53:00 120 mm[Hg] [facility] Diastolic blood pressure 2020-12-05 18:53:00 72 mm[Hg] [facility] Heart rate 2020-12-05 18:53:00 67 /min [facility] Body temperature 2020-12-05 18:51:00 36.06 Suze [facility] Body height 2020-12-05 18:51:00 170.2 cm [facility] Body weight 2020-12-05 18:51:00 80.786 kg [facility] BMI 2020-12-05 18:51:00 27.89 kg/m2 [facility] Oxygen saturation in Arterial blood by Pulse oximetry 2020-12-05 18:51:00 96 /min [facility] Systolic blood pressure 2020-10-06 17:23:00 131 mm[Hg] [facility] Diastolic blood pressure 2020-10-06 17:23:00 72 mm[Hg] [facility] Heart rate 2020-10-06 17:23:00 62 /min [facility] Respiratory rate 2020-10-06 17:13:00 19 /min [facility] Body height 2020-10-06 17:13:00 170.2 cm [facility] Body weight 2020-10-06 17:13:00 82.872 kg [facility] BMI 2020-10-06 17:13:00 28.61 kg/m2 [facility] Oxygen saturation in Arterial blood by Pulse oximetry 2020-10-06 17:13:00 95 /min [facility] Systolic blood pressure 2020-02-29 20:25:00 178 mm[Hg] [facility] Diastolic blood pressure 2020-02-29 20:25:00 64 mm[Hg] [facility] Heart rate 2020-02-29 20:25:00 71 /min [facility] Body temperature 2020-02-29 20:25:00 36.83 Suze [facility] Respiratory rate 2020-02-29 20:25:00 18 /min [facility] Body weight 2020-02-29 20:25:00 81.375 kg [facility] BMI 2020-02-29 20:25:00 24.33 kg/m2 [facility] Systolic blood pressure 2020-02-17 12:41:00 181 mm[Hg] [facility] Diastolic blood pressure 2020-02-17 12:41:00 68 mm[Hg] [facility] Heart rate 2020-02-17 12:41:00 49 /min [facility] Body temperature 2020-02-17 12:41:00 36.17 Suze [facility] Respiratory rate 2020-02-17 12:41:00 16 /min [facility] Oxygen saturation in Arterial blood by Pulse oximetry 2020-02-17 12:41:00 94 /min [facility] Body height 2020-02-11 20:19:32 182.9 cm [facility] Body weight 2020-02-11 20:18:27 81.647 kg [facility] BMI 2020-02-11 20:18:27 24.41 kg/m2 [facility] Systolic blood pressure 2020-02-11 19:00:00 92 mm[Hg] [facility] Diastolic blood pressure 2020-02-11 19:00:00 55 mm[Hg] [facility] Heart rate 2020-02-11 19:00:00 78 /min [facility] Body temperature 2020-02-11 19:00:00 36.17 [facility] Respiratory rate 2020-02-11 19:00:00 19 /min [facility] Oxygen saturation in Arterial blood by Pulse oximetry 2020-02-11 19:00:00 95 /min [facility] Body weight 2020-02-11 16:55:35 81.647 kg [facility] BMI 2020-02-11 16:55:35 28.19 kg/m2 [facility] Body height 2020-02-11 06:55:00 170.2 cm [facility] Procedures Procedure Date / Time Performed Performing Clinician Source [id number] 2023-04-17 00:00:00 DEBBY SCHMIDT [facility] [id number] 2023-04-17 00:00:00 KYRPO [facility] [id number] 2023-03-04 00:00:00 CHAAB.01 [facility] [id number] 2023-03-04 00:00:00 [facility]01 [facility] [id number] 2023-03-04 00:00:00 [facility]01 [facility] [id number] 2023-03-04 00:00:00 [facility]01 [facility] [id number] 2023-03-04 00:00:00 [facility]01 [facility] [id number] 2023-03-04 00:00:00 [facility]01 [facility] [id number] 2023-03-04 00:00:00 [facility]01 [facility] [id number] 2023-03-04 00:00:00 [facility]01 [facility] [id number] 2023-03-04 00:00:00 [facility]01 [facility] [id number] 2023-03-04 00:00:00 [facility]AA[facility].01 [facility] [place] ELECTROCARDIOGRAM, COMPLETE 2020-10-06 17:23:45 Ryan Christianson [facility] ASSIGNMENT OF BENEFITS 2020-02-29 20:10:25 Docto r Unassigned, Goodman [facility] POCT GLUCOSE (AUTOMATED) 2020-02-17 12:38:00 Omaira Luque [facility] BASIC METABOLIC PANEL (NA, K, CL, CO2, GLUCOSE, BUN, CREATININE, CA) 2020-02-17 09:08:00 Sathya Cardoso [facility] CBC WITH DIFFERENTIAL 2020-02-17 09:08:00 Arely Cardoso [facility] POCT GLUCOSE (AUTOMATED) 2020-02-17 09:03:00 Omaira Luque [facility] XR CHEST 1 VW 2020-02-17 08:38:31 Luís Tatum [facility] POCT GLUCOSE (AUTOMATED) 2020-02-17 05:33:00 Person, Omaira [facility] POCT GLUCOSE (AUTOMATED) 2020-02-17 01:55:00 Person, [facility] POCT GLUCOSE (AUTOMATED) 2020-02-17 01:04:00 Person, Omaira [facility] POCT GLUCOSE (AUTOMATED) 2020-02-16 21:06:00 Person, [facility] POCT GLUCOSE (AUTOMATED) 2020-02-16 16:40:00 Person, [place] [facility] TROPONIN I 2020-02-16 12:17:00 Cole Rivas [facility] BASIC METABOLIC PANEL (NA, K, CL, CO2, GLUCOSE, BUN, CREATININE, CA) 2020-02-16 10:29:00 Sathya Cardoso [facility] CBC WITH DIFFERENTIAL 2020-02-16 10:29:00 Arely Cardoso [facility] GLYCOSYLATED HEMOGLOBIN (A1C) 2020-02-16 10:29:00 Jose Brantley [facility] XR CHEST 1 VW 2020-02-16 09:56:25 Mckenzie Zavala [facility] POCT GLUCOSE (AUTOMATED) 2020-02-16 05:03:00 Person, [facility] POCT GLUCOSE (AUTOMATED) 2020-02-16 02:07:00 Person, [facility] POCT GLUCOSE (AUTOMATED) 2020-02-15 22:35:00 Person, [facility] POCT GLUCOSE (AUTOMATED) 2020-02-15 13:12:00 Person, [place] [facility] US RETROPERITONEAL COMPLETE 2020-02-15 09:33:19 Benoit Laboy [facility] BASIC METABOLIC PANEL (NA, K, CL, CO2, GLUCOSE, BUN, CREATININE, CA) 2020-02-15 09:18:00 Sathya Cardoso [facility] CBC WITH DIFFERENTIAL 2020-02-15 09:18:00 Arely Cardoso [facility] XR CHEST 1 VW 2020-02-15 09:15:00 Jose Ronn de Mariya, [facility] SODIUM URINE 2020-02-15 05:02:00 Elder nazario [facility] POCT GLUCOSE (AUTOMATED) 2020-02-15 01:56:00 Person, [place] [facility] URINALYSIS 2020-02-15 00:50:00 Jose Brantley [facility] POCT GLUCOSE (AUTOMATED) 2020-02-14 23:01:00 Person, [place] [facility] POCT GLUCOSE (AUTOMATED) 2020-02-14 22:20:00 Person, Oma[place] [facility] XR CHEST 1 VW 2020-02-14 21:26:14 Magalis [facility] POCT GLUCOSE (AUTOMATED) 2020-02-14 12:58:00 Person, [place] [facility] BASIC METABOLIC PANEL (NA, K, CL, CO2, GLUCOSE, BUN, CREATININE, CA) 2020-02-14 08:59:00 Sathya Cardoso [facility] CBC WITH DIFFERENTIAL 2020-02-14 08:59:00 Arely Cardoso [facility] XR CHEST 1 VW 2020-02-14 08:01:53 Jose Brantley [facility] CREATININE, URINE RANDOM 2020-02-14 04:54:00 Mane Dobson [facility] POTASSIUM, URINE RANDOM 2020-02-14 04:54:00 Trip Brantley [facility] SODIUM, URINE RANDOM 2020-02-14 04:54:00 Jose Brantley [facility] CHLORIDE, URINE RANDOM 2020-02-14 04:54:00 Bonnie Brantley [facility] POCT GLUCOSE (AUTOMATED) 2020-02-14 01:53:00 [facility] METABOLIC PANEL (NA, K, CL, CO2, GLUCOSE, BUN, CREATININE, CA) 2020-02-14 00:32:00 Jose Brantley [facility] POCT GLUCOSE (AUTOMATED) 2020-02-13 22:31:00 Person, Omaira [facility] POCT GLUCOSE (AUTOMATED) 2020-02-13 17:48:00 Person, Omaira [facility] BASIC METABOLIC PANEL (NA, K, CL, CO2, GLUCOSE, BUN, CREATININE, CA) 2020-02-13 15:29:00 Walker [facility] CBC WITH DIFFERENTIAL 2020-02-13 15:29:00 Arely Cardoso [facility] POCT GLUCOSE (AUTOMATED) 2020-02-13 14:46:00 [facility], [facility] CHEST 1 VW 2020-02-13 08:43:00 [facility] 2020-02-13 02:39:00 Person, Omaira [facility] POCT GLUCOSE (AUTOMATED) 2020-02-12 18:52:00 Person, Omaira [facility] POCT GLUCOSE (AUTOMATED) 2020-02-12 13:35:00 [facility], [facility] PHOSPHORUS 2020-02-12 09:55:00 Walker Sathya [facility] BASIC METABOLIC PANEL (NA, K, CL, CO2, GLUCOSE, BUN, CREATININE, CA) 2020-02-12 09:55:00 Sathya Cardoso [facility] CBC WITH DIFFERENTIAL 2020-02-12 09:55:00 Arely Cardoso [facility] XR CHEST 1 VW 2020-02-12 08:51:55 [facility]) 2020-02-12 03:54:00 Person, Omaira [facility] POCT GLUCOSE (AUTOMATED) 2020-02-12 02:32:00 Person, Omaira [facility] CRITICAL CARE 2020-02-11 21:34:22 Cheryl Hughes [facility] XR CHEST 1 VW 2020-02-11 20:55:40 Sathya Cardoso [facility] XR CHEST 1 VW 2020-02-11 18:24:29 [facility] THORAX W CONTRAST 2020-02-11 17:40:51 [facility] ABDOMEN PELVIS W CONTRAST 2020-02-11 17:40:51 Cheryl Hughes [facility] CT TRAUMA HEAD WO CONTRAST 2020-02-11 17:39:21 Cheryl Hughes [facility] CT TRAUMA CERVICAL SPINE WO CONTRAST 2020-02-11 17:39:21 Cheryl Hughes [facility] CT TRAUMA THORACIC SPINE WO CONTRAST 2020-02-11 17:39:21 Cheryl Hughes [facility] CT TRAUMA LUMBAR SPINE WO CONTRAST 2020-02-11 17:39:21 [facility]ST 1 VW 2020-02-11 17:14:51 Cheryl Hughes [facility] COVID-19 (ID NOW RAPID TESTING) 2020-02-11 17:08:00 Cheryl Hughes [facility] LIPASE 2020-02-11 17:01:00 Cheryl Hughes [facility] TROPONIN I 2020-02-11 17:01:00 [facility] HEPATIC FUNCTION PANEL (44733) (ALB,T.PRO,BILI T,BU/BC,ALT,AST,ALK PHOS) 2020-02-11 17:01:00 Cheryl Hughes [facility] BASIC METABOLIC PANEL (NA, K, CL, CO2, GLUCOSE, BUN, CREATININE, CA) 2020-02-11 17:01:00 Cheryl Hughes [facility] CBC WITH DIFFERENTIAL 2020-02-11 17:01:00 Joni Hughes [facility] PROTHROMBIN TIME / INR 2020-02-11 17:01:00 Boyd Hughes [facility] ACTIVATED PARTIAL THRMPLAS SANJUANITA 2020-02-11 17:01:00 Cheryl Hughes [facility] EKG-12 LEAD 2020-02-11 16:57:27 Cheryl Hughes [facility] Encounters Start Date/Time End Date/Time Encounter Type Admission Type Attending [facility] Facility Care Department Encounter ID Source 2023-04-08 10:53:00 Inpatient HCACL LAUREANO [id number] [facility] 2023-04-08 16:50:00 2023-04-19 16:02:00 [id number] 2023-03-19 14:09:00 2023-03-19 14:09:00 Outpatient Smauel Harp HCACL RADI [id number] [facility] 2023-03-03 18:32:00 2023-03-13 16:01:00 Inpatient Samia Beltran HCAC[facility] INTE [id number] [facility] 2021-06-07 08:30:00 2021-06-07 08:30:00 Outpatient R AYSE GONZALES [facility] [id number] [facility] 2021-06-04 09:00:00 2021-06-04 09:00:00 [facility] [id number] 2021-03-16 00:00:00 2021-03-16 00:00:00 [facility] 1.840.114 350.1.13.10 4.2.7.2.686 [id number] [facility] 2021-03-16 00:00:00 2021-03-16 00:00:00 Patient Secure Msg [facility] 1.840.114 350.1.13.10 4.2.7.2.686 [id number] [facility] 2021-03-07 09:13:33 2021-03-07 09:28:33 Customer Servicer Visit Vtc-Lab Ayse Gonzales [facility] 1.840.114 350.1.13.10 4.2.7.2.686 [id number] [facility] 2021-03-07 08:27:54 2021-03-07 09:14:25 [facility] 1.2840.114 350.1.13.10 4.2.7.2.686 [id number] [facility] 2021-03-07 09:00:00 2021-03-07 09:00:00 [facility] [id number] [facility] 2021-03-02 08:00:00 2021-03-02 08:00:00 Outpatient R [facility]STIAN [facility] [id number] [facility] 2021-02-28 00:00:00 2021-02-28 00:00:00 Telephone [facility] 1.2840.114 350.1.13.10 4.2.7.2.686 [id number] [facility] 2020-12-25 00:00:00 2020-12-25 00:00:00 [facility] 1.2840.114 350.1.13.10 4.2.7.2.686 [id number] [facility] 2020-12-20 00:00:00 2020-12-20 00:00:00 [facility] 1.2840.114 350.1.13.10 4.2.7.2.686 [id number] [facility] 2020-12-19 00:00:00 2020-12-19 00:00:00 [facility] 1.2840.114 350.1.13.10 4.2.7.2.686 [id number] [facility] 2020-12-14 07:53:25 2020-12-14 23:59:00 Hospital Encounter Ryan Christianson [facility] 1.2.840.114 350.1.13.10 4.2.7.2.686 [id number] [facility] 2020-12-14 07:53:14 2020-12-14 23:59:00 Hospital Encounter Ryan Christianson [facility] 1.2.840.114 350.1.13.10 4.2.7.2.686 [id number] [facility] 2020-12-14 07:53:04 2020-12-14 23:59:00 Hospital Encounter Ryan Christianson [facility] 1.2.840.114 350.1.13.10 4.2.7.2.686 [id number] [facility] 2020-12-14 07:52:23 2020-12-14 07:52:23 Hospital Encounter Ryan Christianson [facility] 1.2.840.114 350.1.13.10 4.2.7.2.686 [id number] [facility] 2020-12-14 00:00:00 2020-12-14 00:00:00 Outpatient SAMMY GWYNIGNACIO [facility] [id number] [facility] 2020-12-05 13:35:35 2020-12-05 14:36:37 [facility] 1.2.840.114 350.1.13.10 4.2.7.2.686 [id number] [facility] 2020-12-05 14:00:00 2020-12-05 14:00:00 Outpatient R AYSE GONZALES [facility] [id number] [facility] 2020-12-01 08:24:35 2020-12-01 08:39:35 Customer Servicer Visit Pob, Adc Lab Main Christian [facility] 1.84.114 350.1.13.10 4.2.7.2.686 [id number] [facility] 2020-12-01 08:30:00 2020-12-01 08:30:00 Outpatient R [facility]RI[facility]IAN [facility] [id number] [facility] 2020-11-28 00:00:00 2020-11-28 00:00:00 [facility] 1.114 350.1.13.10 4.2.7.2.686 [id number] [facility] 2020-11-13 16:00:00 2020-11-13 16:00:00 Outpatient RYAN CADE [facility] [id number] [facility] 2020-11-06 00:00:00 2020-11-06 00:00:00 Patient Outreach Neal Mars [facility] 1.114 350.1.13.10 4.2.7.2.686 [id number] [facility] 2020-10-06 10:53:30 2020-10-06 12:21:03 Office Visit Ryan Christianson [facility] 1.84.114 350.1.13.10 4.2.7.2.686 [id number] [facility] 2020-10-06 11:00:00 2020-10-06 11:00:00 Outpatient RYAN CADE [facility] [id number] [facility] 2020-09-17 00:00:00 2020-09-17 00:00:00 Refill Doctor Unassigned, Goodman [facility] 1.114 350.1.13.10 4.2.7.2.686 [id number] [facility] 2020-09-05 11:00:00 2020-09-05 11:00:00 Outpatient R AYSE GONZALES [facility] [id number] [facility] 2020-09-05 07:24:28 2020-09-05 07:54:28 Telemedici ne Visit [facility] 1..114 350.1.13.10 4.2.7.2.686 [id number] [facility] 2020-09-05 00:00:00 2020-09-05 00:00:00 Patient Secure Msg Doctor Unassigned, Goodman [facility] 1..114 350.1.13.10 4.2.7.2.686 [id number] [facility] 2020-08-30 09:16:09 2020-08-30 09:31:09 Customer Servicer Visit Pob, Adc Lab Main Christian [facility] 1.114 350.1.13.10 4.2.7.2.686 [id number] [facility] 2020-08-30 09:15:00 2020-08-30 09:15:00 Outpatient R AYSE GONZALES [facility] [id number] [facility] 2020-08-29 00:00:00 2020-08-29 00:00:00 Telephone [facility] 1..114 350.1.13.10 4.2.7.2.686 [id number] [facility] 2020-08-14 00:00:00 2020-08-14 00:00:00 [facility] 1..114 350.1.13.10 4.2.7.2.686 [id number] [facility] 2020-04-14 00:00:00 2020-04-14 00:00:00 [facility] 1.114 350.1.13.10 4.2.7.2.686 [id number] [facility] 2020-03-23 13:00:00 2020-03-23 13:00:00 Outpatient R AYSE GONZALES [facility] [id number] [facility] 2020-03-23 07:48:19 2020-03-23 08:48:19 Telemedici ne Visit [facility] 1.114 350.1.13.10 4.2.7.2.686 [id number] [facility] 2020-03-21 13:00:00 2020-03-21 13:00:00 Outpatient R AYSE GONZALES [facility] [id number] [facility] 2020-03-20 08:13:42 2020-03-20 08:28:42 Customer Servicer Visit Pob, Adc Lab Main Christian Ayse [facility] 1.84.114 350.1.13.10 4.2.7.2.686 [id number] [facility] 2020-03-20 07:30:00 2020-03-20 07:30:00 Outpatient R AYSE GONZALES [facility] [id number] [facility] 2020-03-16 00:00:00 2020-03-16 00:00:00 Telephone Ayse Gonzales [facility] 1.114 350.1.13.10 4.2.7.2.686 [id number] [facility] 2020-03-14 00:00:00 2020-03-14 00:00:00 [facility] 1.0.114 350.1.13.10 4.2.7.2.686 [id number] [facility] 2020-02-29 15:10:36 2020-02-29 15:43:10 Office Visit Perri Call [facility] 1.2840.114 350.1.13.10 4.2.7.2.686 [id number] [facility] 2020-02-29 15:15:00 2020-02-29 15:15:00 Outpatient R CALL, PERRI [facility] [id number] [facility] 2020-02-29 00:00:00 2020-02-29 00:00:00 Orders Only Doctor Unassigned, Goodman [facility] 1.840.114 350.1.13.10 4.2.7.2.686 [id number] [facility] 2020-02-18 00:00:00 2020-02-18 00:00:00 Transition of Care Tony Bustos 1.0.114 350.1.13.10 4.2.7.2.686 [id number] [facility] 2020-02-11 15:17:21 2020-02-17 11:50:00 Hospital Encounter Person, Sheila Cueto [facility] 1..114 350.1.13.10 4.2.7.2.686 [id number] [facility] 2020-02-11 11:54:46 2020-02-11 14:08:00 Emergency X CHERYL HUGHES [facility] ERT [id number] [facility] 2020-02-11 11:54:46 2020-02-11 14:08:00 Emergency Cheryl Hughes [facility] 1.840.114 350.1.13.10 4.2.7.2.686 [id number] [facility] 2020-02-11 11:54:46 2020-02-11 11:54:46 Emergency X CHERYL HUGHES [facility] ERT [id number] [facility] Results Test Description Test Time Test Comments Results Result Co mments Source FLUORESCENCE INSITU [id number] 09:49:00* Test Item Value Reference Range Interpretation Comme nts FLUORESCENCE INSITU HYBRID (test code = FISH) FISH Analysis - MDS Extended Results: Normal Interpretation: +19 Not Detected Chromosome 8 Not Detected Chromosome 20 Not Detected 5q-/-5/+5 tricolor Not Detected 7q-/-7 tri Not Detected p53 (17p13.1)/ NF1 (17q11) Not Detected ETV6 (12p13) Not VikinidgBBP1D (MLL) (11q23) Not Detected RPN1/MECOM (3q) Not Detected There is no evidence of abnormalities. NOTE: The presence of other abnormalities, not detectable bythis FISH probe set, cannot be ruled out. RECOMMENDATION: These results should be interpreted inconjunction with clinical and other laboratory findings. Electronic SignatureMunale Beyer M.D., Hematopathologist See scanned copy for full report. 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 The remaining ten cells show a normal malekaryotype. Loss of the Y chromosome is an age-related change in oldermales, and is not considered clinically significant. Due to poor mitotic index, only thirteen metaphase cells areavailable for analysis. This study does not exclude thepresence of an abnormal clone within standard analysis parameters. Comments:Standard cytogenetic analysis may not detect subtlesubmicroscopic rearrangements and may not include metaphasesfrom abnormal cell populations with low mitotic rates or present in low levels. Analysis Code: [id number], QC ([id number]) Test Detail:Metaphases Counted: 13Metaphases Analyzed: 13Metaphases Karyotyped: 4Culture Type: 24EB, 48EBBanding Technique: GTGBanding Resolution: 350 Electronic [facility]o Cheema M.D., Pathologist - [facility]. LEUK/LYMPHOMA [id number] 09:49:00* Test Item Value Reference Range Interpretation Comme nts LEUK/LYMPHOMA PANEL (test code = LEULYM) Flow Cytometry A nalysis Specimen Type: Bone MarrowBody Site: Left Iliac Crest Diagnosis:1) FINDINGS SUGGESTIVE OF IMMATURE MONOCYTES2) PLASMA CELL STUDIES ORDERED ADDENDUM ([id number]):- NO EVIDENCE FOR PLASMA CELL NEOPLASM DETECTED Comments:Phenotype: ?dim CD7 (subset), dim CD11c, CD13, CD33, CD34,CD38, CD64, CD117, HLA-DR; negative for CD10 and CD19 Monocytes demonstrate heterogeneous expression of XI70xsvgxxvjrw of monocyte immaturity. 0.9% myeloid blasts aredetected with equivocal expression of CD7 noted in a subset of blasts. These findings may sometimes be associated with a myeloid neoplasm. Eosinophils are 6%. Cytogenetic karyotyping, FISH and next gen sequencing studies are already in progress as requested. No evidence for acute leukemia, increased CD34/MI954okuxqrcx blasts, lymphoproliferative disorder is detected. Clinical and morphologic correlation is recommended for fullinterpretation. ADDENDUM([id number]): Cytoplasmic light chain and CD138 studiesdemonstrate polytypic light chain expression in plasmacells. No evidence for plasma cell neoplasm is detected at this time. Flow Differential (%) and Population Analysis: Lymphocytes: 2.4%T cells in this region are 90% (2% of total events). CD4 toCD8 ratio is 2.7. NK cells are 6% and large granular lymphocytes are 5% (less than 1%) each. B cells are 2% (less than 0.1%) and show lambda predominance but polytypic light chain expression. Monocytes: 3.4%Heterogeneous expression of CD14 is noted; negative forCD56. Granulocytes: 89.6%Full spectrum maturation expression pattern is noted.Eosinophils are 6% of total events. CD45 Dim: 3.6%0.9% are CD34 positive myeloid blasts with equivocal dimexpression of CD7 in a subset of events. Markers Performed:CD2, CD3, CD4, CD5, CD7, CD8, CD10, CD11c, CD13, CD14, CD16,CD19, CD20, CD23, CD33, CD34, CD38, CD45, CD56, CD64, CD117,CD138, cKappa, cLambda, HLA-DR, [place], Lambda (27 Markers ) Immunophenotyping:Analysis Code: 3-3903 ADDENDED: Diagnosis addended for plasma cell studies only Electronic Elvin Pryor M.D., Pathologist BONE [id number] 13:47:00* Test Item Value Reference Range Interpretation Comments BONE MARROW (test code = BR) RUN DATE: 04/30/23 [facility] - LAB PAGE 1 RUN TIME: 1419 Specimen Inquiry RUN USER: INTERFACE PATIENT: TEVIN NYE LOC: ANAMIKA #: [id number] AGE/SX: 73/M ROOM: [facility] RE04/08/23REG DR: Rojelio Magaña MD : 51 BED: 1 DIS: 04/19/23 STATUS: DIS IN TLOC: SPEC #: [id number] RECD: 04/17/23 STATUS: GILBERT FORREST #: [id number] BHAVANI: 04/17/23- [facility] DR: Pablo Kumar MD ENTERED: 04/17/23 SP TYPE: BM OTHR DR: Self Referred Anibal Haynes MD, Majd Byrne, John G MD Chaugle, Abdul Hannan MD Gibberman,Davi Nj,Bryson Gamboa,Elvie Washington,Reyna DPM Nolberto,Dakota Butler,David Mcclelland,Atif Paz,Glendy Ceron MDORDERED: 72401, 94250/2, SPEC STAIN GR2/4, 87789, IHC ADD 96239/6, 96960, 33409, ANATOMIC SPEC COPIES TO: Self Referred Anibal Haynes MD [address] [place] [address] Sharmila Alan [address] [facility] [place] [address] [place] [address] Samuel Mcguire MD [address] [place] [address] [address] [place] [address] Luci Villeda MD [address] [place] [address]. [address] [place] [address] Davi Hilton MD [address] [facility] [address] [place] [address] CONTINUED ON NEXT PAGE RUN DATE: 04/30/23 [facility] - LAB PAGE 2 RUN TIME: 1419 Specimen Inquiry RUN USER: INTERFACE SPEC #: [id number] PATIENT: TEVIN NYE #[id number] (Continued) COPIES TO: (Continued) Bryson Nj [address] [facility] [address] [place] [address] Elvie Gamboa MD [address] [facility] [place] [address] Reyna Washington [facility] [address] [place] [address] Pablo Kumar MD [address] [place] [address] Dakota Arvizu MD [address] [place] [address] David Butler MD [address] [place] [address] Atif Mcclelland MD [facility] [facility] [address] [place] [address] Glendy Paz MD [address] [place] [address] PROCEDURES: 05149 (04/17/23) 49616 (04/17/23) SPEC STAIN GR2 (04/17/23) 21077 (04/21/23) IHC ADD 78849 (04/21/23) 16396 (04/21/23) 14425 (04/21/23) CONTINUED ON NEXT PAGE RUN DATE: 04/30/23 [facility] PAGE 3 RUN TIME: 141 Specimen Inquiry RUN USER: INTERFACE SPEC #: [id number] PATIENT: TEVIN NYE #[id number] (Continued) TISSUES: A. BONE MARROW BIOPSY/ BONE MARROW PARTICLE CLOT - LEFT ILIAC CREST ADDENDUM FINDINGS Addendum #3 Entered: 04/30/234655 This addenum is issued to report the results of ancillary studies performed and interpretedat [facility] (see below). 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 DNMT3A mutations are found in 31% of acute myeloidleukemia (PMID: 46775587), 13% of myelodysplastic syndrome (PMID: 11283634), 13% ofrefractory anemia with ring sideroblasts associated with marked thrombocytosis (PMID:94558455), 8% of blastic plasmacytoid dendritic cell neoplasm (PMID: 18557020), 6% ofprimary myelofibrosis (PMID: 33722074), 6% of essential thrombocythemia, 2% of polycythemiavera (PMID: 32104364), and 4% of chronic myelomonocytic leukemia (PMID: 59821606). KZHV2Tkkgrilgry are associated with an unfavorable prognosis in myelodysplastic syndrome esqxGO7Y0 is not mutated, and also unfavorable outcomes and shorter survival afterhematopoietic stem cell transplantation (PMID: 59651473). DNMT3A mutations are associatedwith an unfavorable prognosis in acute myeloid leukemia with FLT3-ITD mutation and normalkaryotype or intermediate-risk cytogenetic abnormalities, but improved outcome in patientstreated with high-dose induction chemotherapy compared with standard-dose inductionchemotherapy (PMID: 34132474). Somatic mutations in leukemia associated genes (particularlyASXL1, [...] allele frequency of 10% or more (PMID: 20543700). Somaticmutations in leukemia-associated genes are also commonly found in patients with unexplainedcytopenias who do not meet diagnostic criteria for myelodysplastic syndrome, a conditionknown as clonal cytopenias of undetermined significance (CCUS) (PMID: 09334382 and PMID:04491483). PLEASE SEE ORIGINAL REFERENCE LAB REPORT FOR DETAILS Addendum Signed SIGNATURE ON FILE Shun Vasquez 04/30/23 1418 Addendum #2 Entered: 04/25/23-1152 This addenum is issued to report the results of ancillary studies performed and interpretedat [facility] (see below). CONTINUED ON NEXT PAGE RUN DATE: 04/30/23 [facility] - LAB PAGE 4 RUN TIME: 1419 Specimen Inquiry RUN USER: INTERFACE SPEC #: [id number] PATIENT: TEVIN NYE #[id number] (Continued) ADDENDUM FINDINGS (Continued) Oncology chromosome analysis: [...] results of ancillary studies performed and interpretedat [facility]) (see below). FISH MDS extended: Normal PLEASE [...] neutrophils present; thrombocytopenia. -Flow cytometry ([facility] Findings suggestive of immature monocytes. CONTINUED ON NEXT PAGE RUN DATE: 04/30/23 [facility] - LAB PAGE 5 RUN TIME: 1419 Specimen Inquiry RUN USER: INTERFACE SPEC #: [id number] PATIENT: TEVIN NYE #[id number] (Continued) FINAL DIAGNOSIS (Continued) Comment: The above [...] stained clot section. Technical component performed at [facility],[address] [place] [address], [place] [address] Unless gross only, the diagnosis is based [...] to 2% of CONTINUED ON NEXT PAGE RUN DATE: 04/30/23 [facility] LAB PAGE 6 RUN TIME: 1419 Specimen Inquiry RUN USER: INTERFACE SPEC #: [id number] PATIENT: TEVIN NYE #[id number] (Continued) MICROSCOPIC DESCRIPTION (Continued) all cells. The [...] CLINICAL INFORMATION ANEMIA, LEUKOPENIA, EVAL FOR MDS Signed SIGNATURE ON FILE Shun Vasquez 04/21/23 1347 END OF REPORT GLUCOSE [id number] 11:24:00* Test Item Value Reference Range Interpretation Comme nts GLUCOSE BEDSIDE (test code = GLUBED) 194 MG/DL 70-110 H Performed by wendy malcolm 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 [facility] CBC W/AUTO [id number] 08:08:00* Test Item Value Reference Range Interpretation Comme nts WHITE BLOOD CELL (test code = WBC) 3.3 x10 3/uL 4.5-11.0 L RED BLOOD CELL (test code = RBC) 2.64 x10 6/uL 4.00-5.60 L HEMOGLOBIN (test code = HGB) 7.8 g/dL 12.5-16.9 L HEMATOCRIT (test code = HCT) 25.4 % 37.5-50.7 L MEAN CELL VOLUME (test code = MCV) 96.2 fL 81.0-99.0 N MEAN CELL HGB (test code = MCH) 29.5 pg 27.0-33.0 N MEAN CELL HGB CONCETRATION (test code = MCHC) 30.7 g/dL 33.0-37.0 L RED CELL DISTRIBUTION WIDTH CV (test code = RDW) 17.9 % 11.5-14.5 H RED CELL DISTRIBUTION WIDTH SD (test code = RDW-SD) 62.7 fL 37.0-54.0 H PLATELET COUNT (test code = PLT) 144 x10 3/uL 150-400 L MEAN PLATELET VOLUME (test c ode = MPV) 11.5 fL 7.0-9.0 H NEUTROPHIL % (test code = NT%) 73.0 % 56.0-77.0 N IMMATURE GRANULOCYTE % (test code = IG%) 0.6 % 0.0-2.0 N LYMPHOCYTE % (test code = LY%) 12.6 % 14.0-32.0 L MONOCYTE % (test code = MO%) 10.7 % 4.8-9.0 H EOSINOPHIL % (test code = EO%) 2.5 % 0.3-3.7 N BASOPHIL % (test code = BA%) 0.6 % 0.0-2.0 N NUCLEATED RBC % (test code = NRBC%) 0.0 % 0-0 N NEUTROPHIL # (test code = NT#) 2.38 x10 3/uL 2.0-7.6 N IMMATURE GRANULOCYTE # (test code = IG#) 0.02 x10 3/uL 0.00-0.03 N LYMPHOCYTE # (test code = LY#) 0.41 x10 3/uL 1.0-3.8 L MONOCYTE # (test code = MO#) 0.35 x10 3/uL 0.1-0.8 N EOSINOPHIL # (test code = EO#) 0.08 x10 3/uL 0.0-0.2 N BASOPHIL # (test code = BA#) 0.02 x10 3/uL 0.0-0.2 N NUCLEATED RBC # (test code = NRBC#) 0.00 x10 3/uL 0.0-0.1 N MANUAL DIFF REQUIRED (test c ode = MDIFF) NO GLUCOSE [id number] 07:41:00* Test Item Value Reference Range Interpretation Comme nts GLUCOSE BEDSIDE (test code = GLUBED) 186 MG/DL 70-110 H Performed by cer tified 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 [facility] BASIC METABOLIC [id number] 07:37:00* Test Item Value Reference Range Interpretation Comme nts SODIUM (test code = NA) 140 mEq/L 134-147 N POTASSIUM (test code = K) 4.2 mEq/L 3.4-5.0 N CHLORIDE (test code = CL) 107 mEq/L 100-108 N CARBON DIOXIDE (test code = CO2) 26 mEq/l 21-33 N ANION GAP (test code = GAP) 12 0-20 N GLUCOSE (test code = GLU) 164 mg/dL 70-110 H BLOOD UREA NITROGEN (test code = BUN) 19 mg/dL 7-18 H GLOMERULAR FILTRATION RATE (test code = GFR) 58.4 70-80 L The Glomerular Filtration Rate is a calculated parameterbased on serum Creatinine, patient age and sex. GFR valuesless than 60 mL/min/1.73 square meters are indicative ofChronic Kidney Disease. Values less than 15 mL/min/1.73square meters indicate Kidney failure. The calculation forGFR is based on the CKD-EPI (2020) calculation. This formulais race indifferent and is the recommended formula for GFRby the National Kidney Foundation for Adults.The GFR will not calculate if the sex is unknown or if thepatient's age is <18 years. CREATININE (test code = CREAT) 1.3 mg/dL 0.6-1.3 N CALCIUM (test code = CA) 8.2 mg/dL 8.0-10.5 N GLUCOSE [id number] 20:52:00* Test Item Value Reference Range Interpretation Comme nts GLUCOSE BEDSIDE (test code = GLUBED) 203 MG/DL 70-110 H Performed by cer tified 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 [facility] GLUCOSE [id number] 16:19:00* Test Item Value Reference Range Interpretation Comme nts GLUCOSE BEDSIDE (test code = GLUBED) 195 MG/DL 70-110 H Performed by [employer] 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 [facility] GLUCOSE [id number] 11:32:00* Test Item Value Reference Range Interpretation Comme nts GLUCOSE BEDSIDE (test code = GLUBED) 247 MG/DL 70-110 H Performed by [employer] 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 [facility] BASIC METABOLIC [id number] 09:06:00* Test Item Value Reference Range Interpretation Comme nts SODIUM (test code = NA) 139 mEq/L 134-147 N POTASSIUM (test code = K) 4.6 mEq/L 3.4-5.0 N CHLORIDE (test code = CL) 107 mEq/L 100-108 N CARBON DIOXIDE (test code = CO2) 24 mEq/l 21-33 N ANION GAP (test code = GAP) 12 0-20 N GLUCOSE (test code = GLU) 199 mg/dL 70-110 H BLOOD UREA NITROGEN (test code = BUN) 19 mg/dL 7-18 H GLOMERULAR FILTRATION RATE (test code = GFR) 58.4 70-80 L The Glomerular Filtration Rate is a calculated parameterbased on serum Creatinine, patient age and sex. GFR valuesless than 60 mL/min/1.73 square meters are indicative ofChronic Kidney Disease. Values less than 15 mL/min/1.73square meters indicate Kidney failure. The calculation forGFR is based on the CKD-EPI (202) calculation. This formulais race indifferent and is the recommended formula for GFRby the National Kidney Foundation for Adults.The GFR will not calculate if the sex is unknown or if thepatient's age is <18 years. CREATININE (test code = CREAT) 1.3 mg/dL 0.6-1.3 N CALCIUM (test code = CA) 8.3 mg/dL 8.0-10.5 N CBC W/AUTO [id number] 08:26:00* Test Item Value Reference Range Interpretation Comme nts WHITE BLOOD CELL (test code = WBC) 3.7 x10 3/uL 4.5-11.0 L RED BLOOD CELL (test code = RBC) 2.62 x10 6/uL 4.00-5.60 L HEMOGLOBIN (test code = HGB) 7.7 g/dL 12.5-16.9 L HEMATOCRIT (test code = HCT) 25.0 % 37.5-50.7 L MEAN CELL VOLUME (test code = MCV) 95.4 fL 81.0-99.0 N MEAN CELL HGB (test code = MCH) 29.4 pg 27.0-33.0 N MEAN CELL HGB CONCETRATION (test code = MCHC) 30.8 g/dL 33.0-37.0 L RED CELL DISTRIBUTION WIDTH CV (test code = RDW) 18.1 % 11.5-14.5 H RED CELL DISTRIBUTION WIDTH SD (test code = RDW-SD) 61.8 fL 37.0-54.0 H PLATELET COUNT (test code = PLT) 139 x10 3/uL 150-400 L MEAN PLATELET VOLUME (test c ode = MPV) 10.7 fL 7.0-9.0 H NEUTROPHIL % (test code = NT%) 74.4 % 56.0-77.0 N IMMATURE GRANULOCYTE % (test code = IG%) 0.8 % 0.0-2.0 N LYMPHOCYTE % (test code = LY%) 12.4 % 14.0-32.0 L MONOCYTE % (test code = MO%) 9.7 % 4.8-9.0 H EOSINOPHIL % (test code = EO%) 1.9 % 0.3-3.7 N BASOPHIL % (test code = BA%) 0.8 % 0.0-2.0 N NUCLEATED RBC % (test code = NRBC%) 0.0 % 0-0 N NEUTROPHIL # (test code = NT#) 2.75 x10 3/uL 2.0-7.6 N IMMATURE GRANULOCYTE # (test code = IG#) 0.03 x10 3/uL 0.00-0.03 N LYMPHOCYTE # (test code = LY#) 0.46 x10 3/uL 1.0-3.8 L MONOCYTE # (test code = MO#) 0.36 x10 3/uL 0.1-0.8 N EOSINOPHIL # (test code = EO#) 0.07 x10 3/uL 0.0-0.2 N BASOPHIL # (test code = BA#) 0.03 x10 3/uL 0.0-0.2 N NUCLEATED RBC # (test code = NRBC#) 0.00 x10 3/uL 0.0-0.1 N MANUAL DIFF REQUIRED (test c ode = MDIFF) NO GLUCOSE [id number] 08:19:00* Test Item Value Reference Range Interpretation Comme [facility] GLU[facility]SE BEDSIDE (test code = GLUBED) 196 MG/DL 70-110 H Performed by cer tified 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 [facility] GLUCOSE [id number] 19:34:00* Test Item Value Reference Range Interpretation Comme [facility] GLUCOSE BEDSIDE (test code = GLUBED) 203 MG/DL 70-110 H Performed by [employer] 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 [facility] PROTEIN ELECTROPHORESIS [id number] 16:11:00* Test Item Value Reference Range Interpretation Comme nts TOTAL PROTEIN (test code = PROTE) 5.5 g/dL 6.0-8.5 L ALBUMIN (test code = ALBE) 2.6 g/dL 2.9-4.4 A [id number]-[id number]-PJSFDCOT (test code = A1G) 0.3 g/dL 0.0-0.4 HATTF-7-BRZDREQY (test code = A2G) 0.7 g/dL 0.4-1.0 BETA GLOBULIN (test code = BG) 0.7 g/dL 0.7-1.3 GAMMA GLOBULIN (test code = GG) 1.2 g/dL 0.4-1.8 M-SPIKE,SERUM (test code = MSPIKES) Not Observed g/dL Not Observed GLOBULIN ELECT (test code = GLOBE) 2.9 g/dL 2.2-3.9 ALBUMIN/GLOBULIN RATIO (test code = AGE) 0.9 0.7-1.7 PROT.ELECTROPH.IN TERPRETATION (test code = ELEINT) See_Comment The SPE pattern reflects hypoalbuminemia. Evidence ofmonoclonal protein is not apparent.Performed At: [facility] [id number] Veloz MD Ph:[phone] ed At: [address] [id number] CN MD Ph:[phone] SPE pattern reflects hypoalbuminemia. Evidence ofmonoclonal protein is not apparent.Performed At: [address] [id number] Veloz MD Ph:[phone] ed At: [address] [id number] CN MD Ph:[phone] [Automated message] The system which generated this result transmitted reference range: (). The reference range was not used to interpret this result as normal/abnormal. GLUCOSE [id number] 12:12:00* Test Item Value Reference Range Interpretation Comme [facility] GLUCOSE BEDSIDE (test code = GLUBED) 175 MG/DL 70-110 H Performed by cer [employer] 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 [facility] GLUCOSE [id number] 12:12:00* Test Item Value Reference Range Interpretation Comme [facility] GLUCOSE BEDSIDE (test code = GLUBED) 177 MG/DL 70-110 H Performed by [employer] 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 [facility] BASIC METABOLIC [id number] 08:24:00* Test Item Value Reference Range Interpretation Comme nts SODIUM (test code = NA) 137 mEq/L 134-147 N POTASSIUM (test code = K) 4.4 mEq/L 3.4-5.0 N CHLORIDE (test code = CL) 110 mEq/L 100-108 H CARBON DIOXIDE (test code = CO2) 27 mEq/l 21-33 N ANION GAP (test code = GAP) 4 0-20 N GLUCOSE (test code = GLU) 192 mg/dL 70-110 H BLOOD UREA NITROGEN (test code = BUN) 22 mg/dL 7-18 H GLOMERULAR FILTRATION RATE (test code = GFR) 53.4 70-80 L The Glomerular Filtration Rate is a calculated parameterbased on serum Creatinine, patient age and sex. GFR valuesless than 60 mL/min/1.73 square meters are indicative ofChronic Kidney Disease. Values less than 15 mL/min/1.73square meters indicate Kidney failure. The calculation forGFR is based on the CKD-EPI (202) calculation. This formulais race indifferent and is the recommended formula for GFRby the National Kidney Foundation for Adults.The GFR will not calculate if the sex is unknown or if thepatient's age is <18 years. CREATININE (test code = CREAT) 1.4 mg/dL 0.6-1.3 H CALCIUM (test code = CA) 8.0 mg/dL 8.0-10.5 N CBC W/AUTO [id number] 08:09:00* Test Item Value Reference Range Interpretation Comme nts WHITE BLOOD CELL (test code = WBC) 3.1 x10 3/uL 4.5-11.0 L RED BLOOD CELL (test code = RBC) 2.58 x10 6/uL 4.00-5.60 L HEMOGLOBIN (test code = HGB) 7.5 g/dL 12.5-16.9 L HEMATOCRIT (test code = HCT) 24.3 % 37.5-50.7 L MEAN CELL VOLUME (test code = MCV) 94.2 fL 81.0-99.0 N MEAN CELL HGB (test code = MCH) 29.1 pg 27.0-33.0 N MEAN CELL HGB CONCETRATION (test code = MCHC) 30.9 g/dL 33.0-37.0 L RED CELL DISTRIBUTION WIDTH CV (test code = RDW) 17.8 % 11.5-14.5 H RED CELL DISTRIBUTION WIDTH SD (test code = RDW-SD) 59.1 fL 37.0-54.0 H PLATELET COUNT (test code = PLT) 137 x10 3/uL 150-400 L MEAN PLATELET VOLUME (test c ode = MPV) 11.0 fL 7.0-9.0 H NEUTROPHIL % (test code = NT%) 73.8 % 56.0-77.0 N IMMATURE GRANULOCYTE % (test code = IG%) 1.0 % 0.0-2.0 N LYMPHOCYTE % (test code = LY%) 12.8 % 14.0-32.0 L MONOCYTE % (test code = MO%) 9.8 % 4.8-9.0 H EOSINOPHIL % (test code = EO%) 1.6 % 0.3-3.7 N BASOPHIL % (test code = BA%) 1.0 % 0.0-2.0 N NUCLEATED RBC % (test code = NRBC%) 0.0 % 0-0 N NEUTROPHIL # (test code = NT#) 2.25 x10 3/uL 2.0-7.6 N IMMATURE GRANULOCYTE # (test code = IG#) 0.03 x10 3/uL 0.00-0.03 N LYMPHOCYTE # (test code = LY#) 0.39 x10 3/uL 1.0-3.8 L MONOCYTE # (test code = MO#) 0.30 x10 3/uL 0.1-0.8 N EOSINOPHIL # (test code = EO#) 0.05 x10 3/uL 0.0-0.2 N BASOPHIL # (test code = BA#) 0.03 x10 3/uL 0.0-0.2 N NUCLEATED RBC # (test code = NRBC#) 0.00 x10 3/uL 0.0-0.1 N MANUAL DIFF REQUIRED (test c ode = MDIFF) NO GLUCOSE [id number] 07:24:00* Test Item Value Reference Range Interpretation Comme nts GLUCOSE BEDSIDE (test code = GLUBED) 180 MG/DL 70-110 H Performed by cer yun 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 [facility] - CT GUID NDL PLCMT (Biopsy/Asp)2023-04-17 00:00:00 [facility] 1950 Sex: M Name: TEVIN NYE [facility] Gabriella Pope : 1950 Age/S: 73 / M [address] [place] [address] Blvd Unit #: [id number] Loc: [place] [address] Phys: Dakota Arvizu MD Acct: [id number] Dis Date: Status: ADM INPHONE #: [phone] Exam Date: 04/17/2023 1035 FAX #: [phone] Reason: Anemia, leucopenia, evaluate for MDS EXAMS: CPT CODE: [id number] CT GUID NDL [facility] (Biopsy/Asp) [address]304 PROCEDURE INFORMATION: Exam: IR Diagnostic Bone Marrow [...] matched to clinical indication); or iterative reconstruction. Guidance contrast: CT contrast route: Intra-venous; COMPARISON: USRE[facility]ITONEAL [facility] 11/13/2022 06:55 RADIATION DOSE METRICS: Reference air kerma (JUANCARLOS): Not provided. Total DLP (mGy-cm): 118 FINDINGS: Advanced practice providers: None. CONSENT AND SEDATION INFO: Consent: The risks, benefits and alternatives of the procedure were [...] and physiological status throughout. Moderate sedation record is permanently stored in the hospital information system. Medications for sedation: 1 mg of IV Versed and 50 mcg of IV Fentanyl. Total intra-service sedation time (minutes): 10 minutes. Sterile technique: All elements of maximal sterile barrier technique were followed which includecap, mask, sterile gown, sterile gloves, sterile full-body drape, hand hygiene, 2% chlorhexidine for cutaneous antisepsis (skin prep), sterile ultrasound gel, and sterile probe cover. Procedure summary: The patient was placed in the prone position. 1% lidocaine was used for local anesthesia. Using CT guidance, 11- gauge needle PAGE 1 Signed Report (CONTINUED) Name: TEVIN NYE [facility] : 1950 Age/S: 73 / M [address] [place] [address] Unit #: [id number] Loc: [place] [address] Phys: Dakota Arvizu MD Acct: [id number] Dis Date: Status: ADM IN PHONE #: [phone] Exam Date: 04/17/2023 1035 FAX #: [phone] Reason: Anemia, leucopenia, evaluate for MDS EXAMS: CPT CODE: [id number] CT GUID NDL [facility] (Biopsy/Asp) 93186 (Continued) was advanced into the posterior left iliac bone. CT imaging confirmed proper positioning of the needle with the tip in [...] Post biopsy imaging demonstrates no hematoma. Complications: Noimmediate complications. IMPRESSION: CT-guided bone marrow aspiration and core biopsy. at 1128 Reported and signed by: Clarissa Zhang CC: Samuel Mcguire MD; Elvie Gamboa MD; Pablo Kumar MD; Dakota Arvizu Technologist:Magalie Michaels RT(R)(CT) CTDI: DLP: Trnscb Date/Time: 04/17/2023 (1128) [email or web address] Orig Print D/T: S: 04/17/2023 (8000) PAGE 2 Signed ReportGLUCOSE BEDSIDE 2023-04-16 21:24:00* Test Item Value Reference Range Interpretation Comme nts GLUCOSE BEDSIDE (test code = GLUBED) 186 MG/DL 70-110 H Performed by cer tified 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 [facility] GLUCOSE [id number] 17:00:00* Test Item Value Reference Range Interpretation Comme nts GLUCOSE BEDSIDE (test code = GLUBED) 180 MG/DL 70-110 H Performed by cer tified 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 [facility] [id number] 16:11:00* Test Item Value Reference Range Interpretation Comme nts HAPTOGLOBIN (test code = HAPT) 125 mg/dL 34-355 Performed At[facility] [address] [place], [place] [id number] CN MD Ph:[phone] GLUCOSE [id number] 11:14:00* Test Item Value Reference Range Interpretation Comme nts GLUCOSE BEDSIDE (test code = GLUBED) 218 MG/DL 70-110 H Performed by cer tified 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 [facility] CBC W/AUTO [id number] 08:32:00* Test Item Value Reference Range Interpretation Comme nts WHITE BLOOD CELL (test code = WBC) 3.7 x10 3/uL 4.5-11.0 L RED BLOOD CELL (test code = RBC) 2.50 x10 6/uL 4.00-5.60 L HEMOGLOBIN (test code = HGB) 7.3 g/dL 12.5-16.9 L HEMATOCRIT (test code = HCT) 23.5 % 37.5-50.7 L MEAN CELL VOLUME (test code = MCV) 94.0 fL 81.0-99.0 N MEAN CELL HGB (test code = MCH) 29.2 pg 27.0-33.0 N MEAN CELL HGB CONCETRATION (test code = MCHC) 31.1 g/dL 33.0-37.0 L RED CELL DISTRIBUTION WIDTH CV (test code = RDW) 17.9 % 11.5-14.5 H RED CELL DISTRIBUTION WIDTH SD (test code = RDW-SD) 58.3 fL 37.0-54.0 H PLATELET COUNT (test code = PLT) 149 x10 3/uL 150-400 L MEAN PLATELET VOLUME (test c ode = MPV) 11.1 fL 7.0-9.0 H NEUTROPHIL % (test code = NT%) 75.6 % 56.0-77.0 N IMMATURE GRANULOCYTE % (test code = IG%) 0.8 % 0.0-2.0 N LYMPHOCYTE % (test code = LY%) 10.2 % 14.0-32.0 L MONOCYTE % (test code = MO%) 10.5 % 4.8-9.0 H EOSINOPHIL % (test code = EO%) 2.4 % 0.3-3.7 N BASOPHIL % (test code = BA%) 0.5 % 0.0-2.0 N NUCLEATED RBC % (test code = NRBC%) 0.0 % 0-0 N NEUTROPHIL # (test code = NT#) 2.80 x10 3/uL 2.0-7.6 N IMMATURE GRANULOCYTE # (test code = IG#) 0.03 x10 3/uL 0.00-0.03 N LYMPHOCYTE # (test code = LY#) 0.38 x10 3/uL 1.0-3.8 L MONOCYTE # (test code = MO#) 0.39 x10 3/uL 0.1-0.8 N EOSINOPHIL # (test code = EO#) 0.09 x10 3/uL 0.0-0.2 N BASOPHIL # (test code = BA#) 0.02 x10 3/uL 0.0-0.2 N NUCLEATED RBC # (test code = NRBC#) 0.00 x10 3/uL 0.0-0.1 N MANUAL DIFF REQUIRED (test c ode = MDIFF) NO BASIC METABOLIC [id number] 08:29:00* Test Item Value Reference Range Interpretation Comme nts SODIUM (test code = NA) 137 mEq/L 134-147 N POTASSIUM (test code = K) 4.2 mEq/L 3.4-5.0 N CHLORIDE (test code = CL) 107 mEq/L 100-108 N CARBON DIOXIDE (test code = CO2) 27 mEq/l 21-33 N ANION GAP (test code = GAP) 8 0-20 N GLUCOSE (test code = GLU) 204 mg/dL 70-110 H BLOOD UREA NITROGEN (test code = BUN) 24 mg/dL 7-18 H GLOMERULAR FILTRATION RATE (test code = GFR) 53.4 70-80 L The Glomerular Filtration Rate is a calculated parameterbased on serum Creatinine, patient age and sex. GFR valuesless than 60 mL/min/1.73 square meters are indicative ofChronic Kidney Disease. Values less than 15 mL/min/1.73square meters indicate Kidney failure. The calculation forGFR is based on the CKD-EPI (202) calculation. This formulais race indifferent and is the recommended formula for GFRby the National Kidney Foundation for Adults.The GFR will not calculate if the sex is unknown or if thepatient's age is <18 years. CREATININE (test code = CREAT) 1.4 mg/dL 0.6-1.3 H CALCIUM (test code = CA) 8.0 mg/dL 8.0-10.5 N GLUCOSE [id number] 07:54:00* Test Item Value Reference Range Interpretation Comme nts GLUCOSE BEDSIDE (test code = GLUBED) 193 MG/DL 70-110 H Performed by cer [employer] 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 [facility] GLUCOSE [id number] 23:55:00* Test Item Value Reference Range Interpretation Comme nts GLUCOSE BEDSIDE (test code = GLUBED) 173 MG/DL 70-110 H Performed by [employer] 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 [facility] GLUCOSE [id number] 15:45:00* Test Item Value Reference Range Interpretation Comme nts GLUCOSE BEDSIDE (test code = GLUBED) 184 MG/DL 70-110 H Performed by [employer] 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 [facility] GLUCOSE [id number] 10:59:00* Test Item Value Reference Range Interpretation Comme nts GLUCOSE BEDSIDE (test code = GLUBED) 202 MG/DL 70-110 H Performed by [employer] 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 [facility] VITAMIN [id number] 08:33:00* Test Item Value Reference Range Interpretation Comme nts VITAMIN B12 (test code = VITB12) 589 pg/mL 193-986 N FOLIC [id number] 08:33:00* Test Item Value Reference Range Interpretation Comme nts FOLIC ACID (test code = FOL) 14.0 ng/mL 3.1-17.5 N BASIC METABOLIC [id number] 08:06:00* Test Item Value Reference Range Interpretation Comme nts SODIUM (test code = NA) 138 mEq/L 134-147 N POTASSIUM (test code = K) 4.1 mEq/L 3.4-5.0 N CHLORIDE (test code = CL) 109 mEq/L 100-108 H CARBON DIOXIDE (test code = CO2) 26 mEq/l 21-33 N ANION GAP (test code = GAP) 7 0-20 N GLUCOSE (test code = GLU) 192 mg/dL 70-110 H BLOOD UREA NITROGEN (test code = BUN) 20 mg/dL 7-18 H GLOMERULAR FILTRATION RATE (test code = GFR) 58.4 70-80 L The Glomerular Filtration Rate is a calculated parameterbased on serum Creatinine, patient age and sex. GFR valuesless than 60 mL/min/1.73 square meters are indicative ofChronic Kidney Disease. Values less than 15 mL/min/1.73square meters indicate Kidney failure. The calculation forGFR is based on the CKD-EPI (2020) calculation. This formulais race indifferent and is the recommended formula for GFRby the National Kidney Foundation for Adults.The GFR will not calculate if the sex is unknown or if thepatient's age is <18 years. CREATININE (test code = CREAT) 1.3 mg/dL 0.6-1.3 N CALCIUM (test code = CA) 8.4 mg/dL 8.0-10.5 N LACTIC DEHYDROGENASE(LDH)2023-04-15 08:06:00* Test Item Value Reference Range Interpretation Comme nts LACTIC DEHYDROGENASE(LDH) (t est code = LDH) 191 IUnits/L 87-241 N [id number] 08:06:00* Test Item Value Reference Range Interpretation Comme nts MAGNESIUM (test code = MAG) 1.94 mg/dL 1.80-2.40 RETIC COUNT (AUTOMATED)2023-04-15 07:32:00* Test Item Value Reference Range Interpretation Comme nts RETIC COUNT (AUTOMATED) (jorge luis t code = RETICA) 5.9 % 0.3-2.3 H CBC W/AUTO [id number] 07:31:00* Test Item Value Reference Range Interpretation Comme nts WHITE BLOOD CELL (test code = WBC) 3.9 x10 3/uL 4.5-11.0 L RED BLOOD CELL (test code = RBC) 2.72 x10 6/uL 4.00-5.60 L HEMOGLOBIN (test code = HGB) 8.0 g/dL 12.5-16.9 L HEMATOCRIT (test code = HCT) 25.6 % 37.5-50.7 L MEAN CELL VOLUME (test code = MCV) 94.1 fL 81.0-99.0 N MEAN CELL HGB (test code = MCH) 29.4 pg 27.0-33.0 N MEAN CELL HGB CONCETRATION (test code = MCHC) 31.3 g/dL 33.0-37.0 L RED CELL DISTRIBUTION WIDTH CV (test code = RDW) 17.6 % 11.5-14.5 H RED CELL DISTRIBUTION WIDTH SD (test code = RDW-SD) 57.1 fL 37.0-54.0 H PLATELET COUNT (test code = PLT) 164 x10 3/uL 150-400 N MEAN PLATELET VOLUME (test c ode = MPV) 11.0 fL 7.0-9.0 H NEUTROPHIL % (test code = NT%) 80.3 % 56.0-77.0 H IMMATURE GRANULOCYTE % (test code = IG%) 0.5 % 0.0-2.0 N LYMPHOCYTE % (test code = LY%) 7.3 % 14.0-32.0 L MONOCYTE % (test code = MO%) 9.6 % 4.8-9.0 H EOSINOPHIL % (test code = EO%) 1.8 % 0.3-3.7 N BASOPHIL % (test code = BA%) 0.5 % 0.0-2.0 N NUCLEATED RBC % (test code = NRBC%) 0.0 % 0-0 N NEUTROPHIL # (test code = NT#) 3.10 x10 3/uL 2.0-7.6 N IMMATURE GRANULOCYTE # (test code = IG#) 0.02 x10 3/uL 0.00-0.03 N LYMPHOCYTE # (test code = LY#) 0.28 x10 3/uL 1.0-3.8 L MONOCYTE # (test code = MO#) 0.37 x10 3/uL 0.1-0.8 N EOSINOPHIL # (test code = EO#) 0.07 x10 3/uL 0.0-0.2 N BASOPHIL # (test code = BA#) 0.02 x10 3/uL 0.0-0.2 N NUCLEATED RBC # (test code = NRBC#) 0.00 x10 3/uL 0.0-0.1 N MANUAL DIFF REQUIRED (test c ode = MDIFF) NO GLUCOSE [id number] 07:05:00* Test Item Value Reference Range Interpretation Comme nts GLUCOSE BEDSIDE (test code = GLUBED) 207 MG/DL 70-110 H Performed by cer tified 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 [facility] GLUCOSE [id number] 20:41:00* Test Item Value Reference Range Interpretation Comme nts GLUCOSE BEDSIDE (test code = GLUBED) 204 MG/DL 70-110 H Performed by cer tified 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 [facility] GLUCOSE [id number] 16:37:00* Test Item Value Reference Range Interpretation Comme nts GLUCOSE BEDSIDE (test code = GLUBED) 215 MG/DL 70-110 H Performed by cer tified 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 [facility] LOW MOLECULAR WT [id number] 14:03:00* Test Item Value Reference Range Interpretation Comme [facility] LOW MOLECULAR WT HEPARIN (test code = LMWHEP) 0.96 IU/mL 0.60-1.00 N LMWH Therapeutic Ranges (target anti-Xa levels measured 3-5 hours after dose):Enoxaparin (Lovenox) - Twice daily dosin.6-1.0 IU/mL Once daily dosing: >1.0 IU/mLTinzaparin (lnnohep) - Once daily dosin.85 IU/mLDalteparin (FragMin) - Once daily dosin.05 IU/mL GLUCOSE [id number] 11:32:00* Test Item Value Reference Range Interpretation Comme [facility] GLUCOSE BEDSIDE (test code = GLUBED) 209 MG/DL 70-110 H Performed by cer tified 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 [facility] CBC W/AUTO [id number] 08:46:00* Test Item Value Reference Range Interpretation Comme nts WHITE BLOOD CELL (test code = WBC) 3.5 x10 3/uL 4.5-11.0 L RED BLOOD CELL (test code = RBC) 2.72 x10 6/uL 4.00-5.60 L HEMOGLOBIN (test code = HGB) 8.0 g/dL 12.5-16.9 L HEMATOCRIT (test code = HCT) 25.5 % 37.5-50.7 L MEAN CELL VOLUME (test code = MCV) 93.8 fL 81.0-99.0 N MEAN CELL HGB (test code = MCH) 29.4 pg 27.0-33.0 N MEAN CELL HGB CONCETRATION (test code = MCHC) 31.4 g/dL 33.0-37.0 L RED CELL DISTRIBUTION WIDTH CV (test code = RDW) 16.8 % 11.5-14.5 H RED CELL DISTRIBUTION WIDTH SD (test code = RDW-SD) 55.1 fL 37.0-54.0 H PLATELET COUNT (test code = PLT) 158 x10 3/uL 150-400 N MEAN PLATELET VOLUME (test c ode = MPV) 10.6 fL 7.0-9.0 H NEUTROPHIL % (test code = NT%) 78.5 % 56.0-77.0 H IMMATURE GRANULOCYTE % (test code = IG%) 0.9 % 0.0-2.0 N LYMPHOCYTE % (test code = LY%) 9.7 % 14.0-32.0 L MONOCYTE % (test code = MO%) 8.6 % 4.8-9.0 N EOSINOPHIL % (test code = EO%) 1.4 % 0.3-3.7 N BASOPHIL % (test code = BA%) 0.9 % 0.0-2.0 N NUCLEATED RBC % (test code = NRBC%) 0.0 % 0-0 N NEUTROPHIL # (test code = NT#) 2.74 x10 3/uL 2.0-7.6 N IMMATURE GRANULOCYTE # (test code = IG#) 0.03 x10 3/uL 0.00-0.03 N LYMPHOCYTE # (test code = LY#) 0.34 x10 3/uL 1.0-3.8 L MONOCYTE # (test code = MO#) 0.30 x10 3/uL 0.1-0.8 N EOSINOPHIL # (test code = EO#) 0.05 x10 3/uL 0.0-0.2 N BASOPHIL # (test code = BA#) 0.03 x10 3/uL 0.0-0.2 N NUCLEATED RBC # (test code = NRBC#) 0.00 x10 3/uL 0.0-0.1 N MANUAL DIFF REQUIRED (test c ode = MDIFF) NO GLUCOSE [id number] 07:31:00* Test Item Value Reference Range Interpretation Comme nts GLUCOSE BEDSIDE (test code = GLUBED) 200 MG/DL 70-110 H Performed by cer janisjenna 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 [facility] COMPREHENSIVE METABOLIC [id number] 06:23:00* Test Item Value Reference Range Interpretation Comme nts SODIUM (test code = NA) 139 mEq/L 134-147 N POTASSIUM (test code = K) 4.2 mEq/L 3.4-5.0 N CHLORIDE (test code = CL) 110 mEq/L 100-108 H CARBON DIOXIDE (test code = CO2) 26 mEq/l 21-33 N ANION GAP (test code = GAP) 7 0-20 N GLUCOSE (test code = GLU) 208 mg/dL 70-110 H BLOOD UREA NITROGEN (test code = BUN) 16 mg/dL 7-18 N GLOMERULAR FILTRATION RATE (test code = GFR) 58.4 70-80 L The Glomerular Filtration Rate is a calculated parameterbased on serum Creatinine, patient age and sex. GFR valuesless than 60 mL/min/1.73 square meters are indicative ofChronic Kidney Disease. Values less than 15 mL/min/1.73square meters indicate Kidney failure. The calculation forGFR is based on the CKD-EPI (202) calculation. This formulais race indifferent and is the recommended formula for GFRby the National Kidney Foundation for Adults.The GFR will not calculate if the sex is unknown or if thepatient's age is <18 years. CREATININE (test code = CREAT) 1.3 mg/dL 0.6-1.3 N TOTAL PROTEIN (test code = PROT) 5.6 g/dL 6.4-8.2 L ALBUMIN (test code = ALB) 2.50 g/dL 3.4-5.0 L CALCIUM (test code = CA) 8.3 mg/dL 8.0-10.5 N BILIRUBIN TOTAL (test code = BILT) 0.20 mg/dL 0.0-1.0 N SGOT/AST (test code = AST) 17 IUnit/L 15-37 N SGPT/ALT (test code = ALT) 19 IUnit/L 30-65 L ALKALINE PHOSPHATASE TOTAL (test code = ALKP) 80 IUnit/L 20-125 N [id number] 06:23:00* Test Item Value Reference Range Interpretation Comme nts MAGNESIUM (test code = MAG) 1.39 mg/dL 1.80-2.40 L CALCIUM [id number] 06:23:00* Test Item Value Reference Range Interpretation Comme nts CALCIUM IONIZED (test code = BIBIANA) 1.16 MMOL/L 1.09-1.30 N - XR CHEST 1 [id number] 00:00:00 [facility] 1950 Sex: M FAX: Samuel Mcguire MD [place]: St: ADM FAX: Elvie Gamboa MD [phone] Name: TEVIN NYE [facility] : 1950 Age/S: 73/M [address] [place] [address] Unit #: [id number] Loc: G.5517 [place] [address] Phys: Elvie Gamboa MD Acct: [id number] Dis Date: Status: ADM IN PHONE #: [phone] Exam Date: 04/13/2023 1720 FAX #: [phone] Reason: SHORTNESS OF BREADTH EXAMS: CPT CODE: [id number] XR CHEST 1 [id number] PROCEDURE INFORMATION: Exam: XR Chest Exam date [...] evidence of pulmonary edema. Pleural spaces: No pleural effusion. No pneumothorax. Heart/Mediastinum: Unchanged cardiomediastinal silhouette. Bones/joints: Median sternotomy changes. IMPRESSION: No acute cardiopulmonary abnormality. at 0616 Reported and signed by: Margarito Borges M.D. CC: Samuel Mcguire MD; Elvie Gamboa MD Technologist: Keila Botello, RT(R); Rosetta Gil RT(R) Trniard Date/Time/By: 04/14/2023 (615) : By: [email or web address] Orig Print D/T: S: 04/14/2023 (615) PAGE 1 Signed ReportGLUCOSE [id number] 21:51:00* Test Item Value Reference Range Interpretation Comme nts GLUCOSE BEDSIDE (test code = GLUBED) 223 MG/DL 70-110 H Performed by cer tified 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 [facility] GLUCOSE [id number] 16:31:00* Test Item Value Reference Range Interpretation Comme nts GLUCOSE BEDSIDE (test code = GLUBED) 135 MG/DL 70-110 H Performed by cer tified 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 [facility] GLUCOSE [id number] 12:11:00* Test Item Value Reference Range Interpretation Comme nts GLUCOSE BEDSIDE (test code = GLUBED) 211 MG/DL 70-110 H Performed by cer tified 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 [facility] GLUCOSE [id number] 08:31:00* Test Item Value Reference Range Interpretation Comme nts GLUCOSE BEDSIDE (test code = GLUBED) 170 MG/DL 70-110 H Performed by [facility] tified 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 [facility] BASIC METABOLIC [id number] 07:58:00* Test Item Value Reference Range Interpretation Comme nts SODIUM (test code = NA) 141 mEq/L 134-147 N POTASSIUM (test code = K) 5.0 mEq/L 3.4-5.0 N SPECIMEN HEMOLYZED.Results known to be adversely affected by hemolysis are: Potassium Magnesium LDH Phosphorus CHLORIDE (test code = CL) 112 mEq/L 100-108 H CARBON DIOXIDE (test code = CO2) 24 mEq/l 21-33 N ANION GAP (test code = GAP) 10 0-20 N GLUCOSE (test code = GLU) 173 mg/dL 70-110 H BLOOD UREA NITROGEN (test code = BUN) 13 mg/dL 7-18 N GLOMERULAR FILTRATION RATE (test code = GFR) 64.3 70-80 L The Glomerular Filtration Rate is a calculated parameterbased on serum Creatinine, patient age and sex. GFR valuesless than 60 mL/min/1.73 square meters are indicative ofChronic Kidney Disease. Values less than 15 mL/min/1.73square meters indicate Kidney failure. The calculation forGFR is based on the CKD-EPI (2020) calculation. This formulais race indifferent and is the recommended formula for GFRby the National Kidney Foundation for Adults.The GFR will not calculate if the sex is unknown or if thepatient's age is <18 years. CREATININE (test code = CREAT) 1.2 mg/dL 0.6-1.3 N CALCIUM (test code = CA) 8.1 mg/dL 8.0-10.5 N LOW MOLECULAR WT [id number] 07:32:00* Test Item Value Reference Range Interpretation Comme nts LOW MOLECULAR WT HEPARIN (test code = LMWHEP) 0.56 IU/mL 0.60-1.00 L LMWH Therapeutic Ranges (target anti-Xa levels measured 3-5 hours after dose):Enoxaparin (Lovenox) - Twice daily dosin.6-1.0 IU/mL Once daily dosing: >1.0 IU/mLTinzaparin (lnnohep) - Once daily dosin.85 IU/mLDalteparin (FragMin) - Once daily dosin.05 IU/mL CBC W/AUTO [id number] 07:19:00* Test Item Value Reference Range Interpretation Comme nts WHITE BLOOD CELL (test code = WBC) 3.6 x10 3/uL 4.5-11.0 L RED BLOOD CELL (test code = RBC) 3.13 x10 6/uL 4.00-5.60 L HEMOGLOBIN (test code = HGB) 9.0 g/dL 12.5-16.9 L HEMATOCRIT (test code = HCT) 29.6 % 37.5-50.7 L MEAN CELL VOLUME (test code = MCV) 94.6 fL 81.0-99.0 N MEAN CELL HGB (test code = MCH) 28.8 pg 27.0-33.0 N MEAN CELL HGB CONCETRATION (test code = MCHC) 30.4 g/dL 33.0-37.0 L RED CELL DISTRIBUTION WIDTH CV (test code = RDW) 16.8 % 11.5-14.5 H RED CELL DISTRIBUTION WIDTH SD (test code = RDW-SD) 55.4 fL 37.0-54.0 H PLATELET COUNT (test code = PLT) 180 x10 3/uL 150-400 N MEAN PLATELET VOLUME (test c ode = MPV) 10.5 fL 7.0-9.0 H NEUTROPHIL % (test code = NT%) 80.5 % 56.0-77.0 H IMMATURE GRANULOCYTE % (test code = IG%) 1.4 % 0.0-2.0 N LYMPHOCYTE % (test code = LY%) 8.9 % 14.0-32.0 L MONOCYTE % (test code = MO%) 6.7 % 4.8-9.0 N EOSINOPHIL % (test code = EO%) 1.7 % 0.3-3.7 N BASOPHIL % (test code = BA%) 0.8 % 0.0-2.0 N NUCLEATED RBC % (test code = NRBC%) 0.0 % 0-0 N NEUTROPHIL # (test code = NT#) 2.90 x10 3/uL 2.0-7.6 N IMMATURE GRANULOCYTE # (test code = IG#) 0.05 x10 3/uL 0.00-0.03 H LYMPHOCYTE # (test code = LY#) 0.32 x10 3/uL 1.0-3.8 L MONOCYTE # (test code = MO#) 0.24 x10 3/uL 0.1-0.8 N EOSINOPHIL # (test code = EO#) 0.06 x10 3/uL 0.0-0.2 N BASOPHIL # (test code = BA#) 0.03 x10 3/uL 0.0-0.2 N NUCLEATED RBC # (test code = NRBC#) 0.00 x10 3/uL 0.0-0.1 N MANUAL DIFF REQUIRED (test c ode = MDIFF) NO GLUCOSE [id number] 16:46:00* Test Item Value Reference Range Interpretation Comme nts GLUCOSE BEDSIDE (test code = GLUBED) 172 MG/DL 70-110 H Performed by cer tified 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 [facility] GLUCOSE [id number] 11:02:00* Test Item Value Reference Range Interpretation Comme nts GLUCOSE BEDSIDE (test code = GLUBED) 139 MG/DL 70-110 H Performed by [facility] tified 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 [facility] COMPREHENSIVE METABOLIC [id number] 07:57:00* Test Item Value Reference Range Interpretation Comme nts SODIUM (test code = NA) 143 mEq/L 134-147 N POTASSIUM (test code = K) 4.4 mEq/L 3.4-5.0 N CHLORIDE (test code = CL) 111 mEq/L 100-108 H CARBON DIOXIDE (test code = CO2) 25 mEq/l 21-33 N ANION GAP (test code = GAP) 12 0-20 N GLUCOSE (test code = GLU) 171 mg/dL 70-110 H BLOOD UREA NITROGEN (test code = BUN) 20 mg/dL 7-18 H GLOMERULAR FILTRATION RATE (test code = GFR) 58.4 70-80 L The Glomerular Filtration Rate is a calculated parameterbased on serum Creatinine, patient age and sex. GFR valuesless than 60 mL/min/1.73 square meters are indicative ofChronic Kidney Disease. Values less than 15 mL/min/1.73square meters indicate Kidney failure. The calculation forGFR is based on the CKD-EPI (202) calculation. This formulais race indifferent and is the recommended formula for GFRby the National Kidney Foundation for Adults.The GFR will not calculate if the sex is unknown or if thepatient's age is <18 years. CREATININE (test code = CREAT) 1.3 mg/dL 0.6-1.3 N TOTAL PROTEIN (test code = PROT) 6.5 g/dL 6.4-8.2 N ALBUMIN (test code = ALB) 2.90 g/dL 3.4-5.0 L CALCIUM (test code = CA) 8.3 mg/dL 8.0-10.5 N BILIRUBIN TOTAL (test code = BILT) 0.20 mg/dL 0.0-1.0 N SGOT/AST (test code = AST) 16 IUnit/L 15-37 N SGPT/ALT (test code = ALT) 17 IUnit/L 30-65 L ALKALINE PHOSPHATASE TOTAL (test code = ALKP) 102 IUnit/L 20-125 N CBC W/AUTO [id number] 07:54:00* Test Item Value Reference Range Interpretation Comme nts WHITE BLOOD CELL (test code = WBC) 4.2 x10 3/uL 4.5-11.0 L RED BLOOD CELL (test code = RBC) 3.35 x10 6/uL 4.00-5.60 L HEMOGLOBIN (test code = HGB) 9.7 g/dL 12.5-16.9 L HEMATOCRIT (test code = HCT) 31.9 % 37.5-50.7 L MEAN CELL VOLUME (test code = MCV) 95.2 fL 81.0-99.0 N MEAN CELL HGB (test code = MCH) 29.0 pg 27.0-33.0 N MEAN CELL HGB CONCETRATION (test code = MCHC) 30.4 g/dL 33.0-37.0 L RED CELL DISTRIBUTION WIDTH CV (test code = RDW) 16.3 % 11.5-14.5 H RED CELL DISTRIBUTION WIDTH SD (test code = RDW-SD) 53.3 fL 37.0-54.0 N PLATELET COUNT (test code = PLT) 220 x10 3/uL 150-400 N MEAN PLATELET VOLUME (test c ode = MPV) 10.6 fL 7.0-9.0 H NEUTROPHIL % (test code = NT%) 80.9 % 56.0-77.0 H IMMATURE GRANULOCYTE % (test code = IG%) 1.4 % 0.0-2.0 N LYMPHOCYTE % (test code = LY%) 8.1 % 14.0-32.0 L MONOCYTE % (test code = MO%) 6.2 % 4.8-9.0 N EOSINOPHIL % (test code = EO%) 2.4 % 0.3-3.7 N BASOPHIL % (test code = BA%) 1.0 % 0.0-2.0 N NUCLEATED RBC % (test code = NRBC%) 0.0 % 0-0 N NEUTROPHIL # (test code = NT#) 3.40 x10 3/uL 2.0-7.6 N IMMATURE GRANULOCYTE # (test code = IG#) 0.06 x10 3/uL 0.00-0.03 H LYMPHOCYTE # (test code = LY#) 0.34 x10 3/uL 1.0-3.8 L MONOCYTE # (test code = MO#) 0.26 x10 3/uL 0.1-0.8 N EOSINOPHIL # (test code = EO#) 0.10 x10 3/uL 0.0-0.2 N BASOPHIL # (test code = BA#) 0.04 x10 3/uL 0.0-0.2 N NUCLEATED RBC # (test code = NRBC#) 0.00 x10 3/uL 0.0-0.1 N MANUAL DIFF REQUIRED (test c ode = MDIFF) NO GLUCOSE [id number] 07:54:00* Test Item Value Reference Range Interpretation Comme [facility] GLU[facility]SE BEDSIDE (test code = GLUBED) 255 MG/DL 70-110 H Performed by cer [employer] 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 [facility] GLUCOSE [id number] 07:24:00* Test Item Value Reference Range Interpretation Comme [facility] GLUCOSE BEDSIDE (test code = GLUBED) 178 MG/DL 70-110 H Performed by [employer] 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 [facility] LOW MOLECULAR WT [id number] 23:57:00* Test Item Value Reference Range Interpretation Comme [facility] LOW MOLECULAR WT HEPARIN (test code = LMWHEP) 0.76 IU/mL 0.60-1.00 N LMWH Therapeutic Ranges (target anti-Xa levels measured 3-5 hours after dose):Enoxaparin (Lovenox) - Twice daily dosin.6-1.0 IU/mL Once daily dosing: >1.0 IU/mLTinzaparin (lnnohep) - Once daily dosin.85 IU/mLDalteparin (FragMin) - Once daily dosin.05 IU/mL COMMENTS: DRAW LEVEL 4 HOURS AFTER GIVING LOVENOX SHOTGLUCOSE [id number] 17:43:00* Test Item Value Reference Range Interpretation Comme nts GLUCOSE BEDSIDE (test code = GLUBED) 214 MG/DL 70-110 H Performed by cer tified 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 [facility] GLUCOSE [id number] 12:11:00* Test Item Value Reference Range Interpretation Comme nts GLUCOSE BEDSIDE (test code = GLUBED) 230 MG/DL 70-110 H Performed by cer tified 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 [facility] BASIC METABOLIC [id number] 08:42:00* Test Item Value Reference Range Interpretation Comme nts SODIUM (test code = NA) 140 mEq/L 134-147 N POTASSIUM (test code = K) 4.3 mEq/L 3.4-5.0 N CHLORIDE (test code = CL) 110 mEq/L 100-108 H CARBON DIOXIDE (test code = CO2) 27 mEq/l 21-33 N ANION GAP (test code = GAP) 7 0-20 N GLUCOSE (test code = GLU) 205 mg/dL 70-110 H BLOOD UREA NITROGEN (test code = BUN) 30 mg/dL 7-18 H GLOMERULAR FILTRATION RATE (test code = GFR) 37.0 70-80 L The Glomerular Filtration Rate is a calculated parameterbased on serum Creatinine, patient age and sex. GFR valuesless than 60 mL/min/1.73 square meters are indicative ofChronic Kidney Disease. Values less than 15 mL/min/1.73square meters indicate Kidney failure. The calculation forGFR is based on the CKD-EPI (202) calculation. This formulais race indifferent and is the recommended formula for GFRby the National Kidney Foundation for Adults.The GFR will not calculate if the sex is unknown or if thepatient's age is <18 years. CREATININE (test code = CREAT) 1.9 mg/dL 0.6-1.3 H CALCIUM (test code = CA) 7.9 mg/dL 8.0-10.5 L CBC W/AUTO [id number] 08:42:00* Test Item Value Reference Range Interpretation Comme nts WHITE BLOOD CELL (test code = WBC) 3.8 x10 3/uL 4.5-11.0 L RED BLOOD CELL (test code = RBC) 2.61 x10 6/uL 4.00-5.60 L HEMOGLOBIN (test code = HGB) 7.6 g/dL 12.5-16.9 L HEMATOCRIT (test code = HCT) 24.3 % 37.5-50.7 L MEAN CELL VOLUME (test code = MCV) 93.1 fL 81.0-99.0 N MEAN CELL HGB (test code = MCH) 29.1 pg 27.0-33.0 N MEAN CELL HGB CONCETRATION (test code = MCHC) 31.3 g/dL 33.0-37.0 L RED CELL DISTRIBUTION WIDTH CV (test code = RDW) 15.9 % 11.5-14.5 H RED CELL DISTRIBUTION WIDTH SD (test code = RDW-SD) 51.7 fL 37.0-54.0 N PLATELET COUNT (test code = PLT) 183 x10 3/uL 150-400 N MEAN PLATELET VOLUME (test c ode = MPV) 10.1 fL 7.0-9.0 H NEUTROPHIL % (test code = NT%) 79.8 % 56.0-77.0 H IMMATURE GRANULOCYTE % (test code = IG%) 1.6 % 0.0-2.0 N LYMPHOCYTE % (test code = LY%) 9.6 % 14.0-32.0 L MONOCYTE % (test code = MO%) 6.6 % 4.8-9.0 N EOSINOPHIL % (test code = EO%) 1.9 % 0.3-3.7 N BASOPHIL % (test code = BA%) 0.5 % 0.0-2.0 N NUCLEATED RBC % (test code = NRBC%) 0.0 % 0-0 N NEUTROPHIL # (test code = NT#) 3.00 x10 3/uL 2.0-7.6 N IMMATURE GRANULOCYTE # (test code = IG#) 0.06 x10 3/uL 0.00-0.03 H LYMPHOCYTE # (test code = LY#) 0.36 x10 3/uL 1.0-3.8 L MONOCYTE # (test code = MO#) 0.25 x10 3/uL 0.1-0.8 N EOSINOPHIL # (test code = EO#) 0.07 x10 3/uL 0.0-0.2 N BASOPHIL # (test code = BA#) 0.02 x10 3/uL 0.0-0.2 N NUCLEATED RBC # (test code = NRBC#) 0.00 x10 3/uL 0.0-0.1 N MANUAL DIFF REQUIRED (test c ode = MDIFF) NO GLUCOSE [id number] 08:32:00* Test Item Value Reference Range Interpretation Comme nts GLUCOSE BEDSIDE (test code = GLUBED) 199 MG/DL 70-110 H Performed by cer tified 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 [facility] UR SMEAR EOSINOPHIL [id number] 06:11:00* Test Item Value Reference Range Interpretation Comme nts UR SMEAR EOSINOPHIL COUNT (t est code = EOSCTU) NONE SEEN UR PROTEIN/CREATININE [id number] 06:11:00* Test Item Value Reference Range Interpretation Comme nts UR PROTEIN RANDOM (test code = PROTU) 40 mg/dL UR CREATININE RANDOM (test code = CREATU) 91.5 mg/dL The Reference Ra nge and Method Performance specificationshave not been established for this fluid. The test resultshould be correlated into the clinical context forinterpretation. PROTEIN/CREATININE RATIO (test code = P/CRATIO) 0.44 - [id number] 00:00:00 [facility] 1950 Sex: M Name: TEVIN NYE [facility] : 1950 Age/S: 73 / M [address] [place] [address] Unit #: [id number] Loc: [place] [address] Phys: Monserrat Bobo MD Acct: [id number] Dis Date: Status: ADM IN PHONE #: [phone] Exam Date: 04/10/2023 1127 FAX #: [phone] Reason: arf EXAMS: CPT CODE: [id number] US RETROPERITONEAL COM [id number] PROCEDURE INFORMATION: Exam: US Retroperitoneal; Complete; Kidneys and Bladder Exam date and time: 04/10/2023 6:55 AM [...] cortical thinning measuring 9.6 cm length. Trace perin ephric free fluid appears to be present. Aorta: Visualized portions of the abdominal aorta is normal in caliber with portions obscured by overlying gas including the bifurcation. Inferior vena cava: The IVC demonstrates color flow. Urinary bladder: Small amount of anechoic fluid is present in the urinary bladder. IMPRESSION: Trace left perinephric free fluid. Otherwise, normal renal ultrasound. at 0809 Reported and signed by: Ranjit Del Castillo M.D. CC: Samuel Mcguire MD; Elvie Gamboa MD; Monserrat Bobo MD Technologist: Jeremie Roman Trnscb Date/Time: 04/11/2023 (808) [email or web address] Orig Print D/T: S: 04/11/2023 (0809) Probe: PAGE 1 Signed ReportGLUCOSE [id number] 22:02:00* Test Item Value Reference Range Interpretation Comme nts GLUCOSE BEDSIDE (test code = GLUBED) 198 MG/DL 70-110 H Performed by wendy malcolm 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 [facility] TOTAL IRON BINDING [id number] 17:06:00* Test Item Value Reference Range Interpretation Comme nts SERUM IRON (test code = IRON) 47 mcg/dL 35-150 N TOTAL IRON BINDING CAPACITY (test code = TIBC) 204 mcg/dL 260-445 L UIBC (test code = UIBC) 157 mcg/dL IRON SATURATION (test code = FESAT) 23.0 % 14-34 N [id number] 17:06:00* Test Item Value Reference Range Interpretation Comme nts FERRITIN (test code = BRIAN) 255.2 ng/mL 23.9-336.2 N GLUCOSE [id number] 16:58:00* Test Item Value Reference Range Interpretation Comme nts GLUCOSE BEDSIDE (test code = GLUBED) 213 MG/DL 70-110 H Performed by cer tified 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 [facility] GLUCOSE [id number] 11:53:00* Test Item Value Reference Range Interpretation Comme nts GLUCOSE BEDSIDE (test code = GLUBED) 283 MG/DL 70-110 H Performed by cer tified 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 [facility] - XR FOOT 3 + V [id number] 11:15:00 [facility] : 1950 Sex: M FAX: Samuel Mcguire MD [place]: St: [facility] FAX: Elvie Gamboa MD [phone] FAX: Reyna Bardales [phone] Name: TEVIN NYE [facility] : 1950 Age/S: 73/M [address] [place] [address] Unit #: [id number] Loc: [address] [employer] [place], [place] [address] Phys: Reyna Washington DPM Acct: [id number] Dis Date: Status: ADM IN PHONE #: [phone] Exam Date: 04/09/2023 1501 FAX #: [phone] Reason: ULCER LEFT UPPER FOOT EXAMS: CPT CODE: [id number] XR FOOT 3 + [place] [id number] EXAM: Left foot series, 3 views Dictation location: H10 INDICATION: Ulcer left upper foot COMPARISON: None. DISCUSSION: Frontal, oblique, and lateralviews of the left foot are submitted. No fracture, dislocation, or lytic or blastic lesions are identified. Joint spaces are well preserved. No bony erosion is seen. Monckeberg vascular calcifications are identified. IMPRESSION: No acute bony abnormalities or evidence of osteomyelitis. at 1115 Reported and signed by: Morales Reyna M.D. CC: Samuel Mcguire MD; Elvie Gamboa MD; Reyna Washington DPM Technologist: RT Aroldo(Karuna) Trnscrd Date/Time/By: 04/10/2023 (1117) : By: [email or web address] Orig Print D/T: S: 04/10/2023 (1114) PAGE 1 Signed ReportBASIC METABOLIC [id number] 08:31:00* Test Item Value Reference Range Interpretation Comme nts SODIUM (test code = NA) 142 mEq/L 134-147 N POTASSIUM (test code = K) 4.3 mEq/L 3.4-5.0 N CHLORIDE (test code = CL) 108 mEq/L 100-108 N CARBON DIOXIDE (test code = CO2) 28 mEq/l 21-33 N ANION GAP (test code = GAP) 10 0-20 N GLUCOSE (test code = GLU) 178 mg/dL 70-110 H BLOOD UREA NITROGEN (test code = BUN) 42 mg/dL 7-18 H GLOMERULAR FILTRATION RATE (test code = GFR) 28.0 70-80 L The Glomerular Filtration Rate is a calculated parameterbased on serum Creatinine, patient age and sex. GFR valuesless than 60 mL/min/1.73 square meters are indicative ofChronic Kidney Disease. Values less than 15 mL/min/1.73square meters indicate Kidney failure. The calculation forGFR is based on the CKD-EPI (202) calculation. This formulais race indifferent and is the recommended formula for GFRby the National Kidney Foundation for Adults.The GFR will not calculate if the sex is unknown or if thepatient's age is <18 years. CREATININE (test code = CREAT) 2.4 mg/dL 0.6-1.3 H CALCIUM (test code = CA) 8.6 mg/dL 8.0-10.5 N CBC W/AUTO [id number] 08:30:00* Test Item Value Reference Range Interpretation Comme nts WHITE BLOOD CELL (test code = WBC) 4.4 x10 3/uL 4.5-11.0 L RED BLOOD CELL (test code = RBC) 2.81 x10 6/uL 4.00-5.60 L HEMOGLOBIN (test code = HGB) 8.1 g/dL 12.5-16.9 L HEMATOCRIT (test code = HCT) 26.7 % 37.5-50.7 L MEAN CELL VOLUME (test code = MCV) 95.0 fL 81.0-99.0 N MEAN CELL HGB (test code = MCH) 28.8 pg 27.0-33.0 N MEAN CELL HGB CONCETRATION (test code = MCHC) 30.3 g/dL 33.0-37.0 L RED CELL DISTRIBUTION WIDTH CV (test code = RDW) 15.8 % 11.5-14.5 H RED CELL DISTRIBUTION WIDTH SD (test code = RDW-SD) 53.1 fL 37.0-54.0 N PLATELET COUNT (test code = PLT) 212 x10 3/uL 150-400 N MEAN PLATELET VOLUME (test c ode = MPV) 10.5 fL 7.0-9.0 H NEUTROPHIL % (test code = NT%) 81.0 % 56.0-77.0 H IMMATURE GRANULOCYTE % (test code = IG%) 1.1 % 0.0-2.0 N LYMPHOCYTE % (test code = LY%) 8.6 % 14.0-32.0 L MONOCYTE % (test code = MO%) 7.7 % 4.8-9.0 N EOSINOPHIL % (test code = EO%) 0.7 % 0.3-3.7 N BASOPHIL % (test code = BA%) 0.9 % 0.0-2.0 N NUCLEATED RBC % (test code = NRBC%) 0.0 % 0-0 N NEUTROPHIL # (test code = NT#) 3.58 x10 3/uL 2.0-7.6 N IMMATURE GRANULOCYTE # (test code = IG#) 0.05 x10 3/uL 0.00-0.03 H LYMPHOCYTE # (test code = LY#) 0.38 x10 3/uL 1.0-3.8 L MONOCYTE # (test code = MO#) 0.34 x10 3/uL 0.1-0.8 N EOSINOPHIL # (test code = EO#) 0.03 x10 3/uL 0.0-0.2 N BASOPHIL # (test code = BA#) 0.04 x10 3/uL 0.0-0.2 N NUCLEATED RBC # (test code = NRBC#) 0.00 x10 3/uL 0.0-0.1 N MANUAL DIFF REQUIRED (test c ode = MDIFF) NO GLUCOSE [id number] 07:33:00* Test Item Value Reference Range Interpretation Comme nts GLUCOSE BEDSIDE (test code = GLUBED) 180 MG/DL 70-110 H Performed by cer tified 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 [facility] GLUCOSE [id number] 19:15:00* Test Item Value Reference Range Interpretation Comme nts GLUCOSE BEDSIDE (test code = GLUBED) 281 MG/DL 70-110 H Performed by cer tified 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 [facility] GLUCOSE [id number] 13:10:00* Test Item Value Reference Range Interpretation Comme nts GLUCOSE BEDSIDE (test code = GLUBED) 162 MG/DL 70-110 H Performed by cer tified 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 [facility] [id number] 12:15:00* Test Item Value Reference Range Interpretation Comme nts MAGNESIUM (test code = MAG) 2.06 mg/dL 1.80-2.40 Comment: pls add to AM labsADD ON TEST? YesBASIC METABOLIC [id number] 08:26:00* Test Item Value Reference Range Interpretation Comme nts SODIUM (test code = NA) 141 mEq/L 134-147 N POTASSIUM (test code = K) 4.5 mEq/L 3.4-5.0 N CHLORIDE (test code = CL) 105 mEq/L 100-108 N CARBON DIOXIDE (test code = CO2) 30 mEq/l 21-33 N ANION GAP (test code = GAP) 10 0-20 N GLUCOSE (test code = GLU) 121 mg/dL 70-110 H BLOOD UREA NITROGEN (test code = BUN) 47 mg/dL 7-18 H GLOMERULAR FILTRATION RATE (test code = GFR) 22.3 70-80 L The Glomerular Filtration Rate is a calculated parameterbased on serum Creatinine, patient age and sex. GFR valuesless than 60 mL/min/1.73 square meters are indicative ofChronic Kidney Disease. Values less than 15 mL/min/1.73square meters indicate Kidney failure. The calculation forGFR is based on the CKD-EPI (202) calculation. This formulais race indifferent and is the recommended formula for GFRby the National Kidney Foundation for Adults.The GFR will not calculate if the sex is unknown or if thepatient's age is <18 years. CREATININE (test code = CREAT) 2.9 mg/dL 0.6-1.3 H CALCIUM (test code = CA) 9.1 mg/dL 8.0-10.5 N CBC W/AUTO [id number] 08:17:00* Test Item Value Reference Range Interpretation Comme nts WHITE BLOOD CELL (test code = WBC) 4.8 x10 3/uL 4.5-11.0 N RED BLOOD CELL (test code = RBC) 2.75 x10 6/uL 4.00-5.60 L HEMOGLOBIN (test code = HGB) 8.1 g/dL 12.5-16.9 L HEMATOCRIT (test code = HCT) 25.6 % 37.5-50.7 L MEAN CELL VOLUME (test code = MCV) 93.1 fL 81.0-99.0 N MEAN CELL HGB (test code = MCH) 29.5 pg 27.0-33.0 N MEAN CELL HGB CONCETRATION (test code = MCHC) 31.6 g/dL 33.0-37.0 L RED CELL DISTRIBUTION WIDTH CV (test code = RDW) 15.8 % 11.5-14.5 H RED CELL DISTRIBUTION WIDTH SD (test code = RDW-SD) 51.8 fL 37.0-54.0 N PLATELET COUNT (test code = PLT) 238 x10 3/uL 150-400 N MEAN PLATELET VOLUME (test c ode = MPV) 10.2 fL 7.0-9.0 H NEUTROPHIL % (test code = NT%) 82.4 % 56.0-77.0 H IMMATURE GRANULOCYTE % (test code = IG%) 1.9 % 0.0-2.0 N LYMPHOCYTE % (test code = LY%) 7.1 % 14.0-32.0 L MONOCYTE % (test code = MO%) 6.5 % 4.8-9.0 N EOSINOPHIL % (test code = EO%) 1.5 % 0.3-3.7 N BASOPHIL % (test code = BA%) 0.6 % 0.0-2.0 N NUCLEATED RBC % (test code = NRBC%) 0.0 % 0-0 N NEUTROPHIL # (test code = NT#) 3.96 x10 3/uL 2.0-7.6 N IMMATURE GRANULOCYTE # (test code = IG#) 0.09 x10 3/uL 0.00-0.03 H LYMPHOCYTE # (test code = LY#) 0.34 x10 3/uL 1.0-3.8 L MONOCYTE # (test code = MO#) 0.31 x10 3/uL 0.1-0.8 N EOSINOPHIL # (test code = EO#) 0.07 x10 3/uL 0.0-0.2 N BASOPHIL # (test code = BA#) 0.03 x10 3/uL 0.0-0.2 N NUCLEATED RBC # (test code = NRBC#) 0.00 x10 3/uL 0.0-0.1 N MANUAL DIFF REQUIRED (test c ode = MDIFF) NO GLUCOSE [id number] 05:04:00* Test Item Value Reference Range Interpretation Comme nts GLUCOSE BEDSIDE (test code = GLUBED) 121 MG/DL 70-110 H Performed by wendy ferguson at [facility] - DUP VEIN [id number] 00:00:00 [facility] GABRIELLA ELGINName: TEVIN NYE : 1950 Sex: M Name: TEVIN NYE [facility] [place] : 1950 Age/S: 73 / M [address] [place] [address] Blvd Unit #: [id number] Loc: [place] [address] Phys: Daniela Mari Acct: [id number] Dis Date: Status: ADM IN PHONE #: [phone] Exam Date: 04/09/2023 1659 FAX #: [phone] Reason: rule out DVT EXAMS: CPT CODE: [id number] DUP VEIN SCOTTY 64615 PROCEDURE INFORMATION: Exam: US Duplex Lower Extremity [...] lower extremity veins. COMPARISON: US DUP VEIN SCOTTY 03/12/2023 6:29 AM FINDINGS: Right deep veins: Unremarkable. The common femoral, femoral, proximal profunda femoral and popliteal veins are pat ent without thrombus. Normal Doppler waveforms. Normal compressibility and/or augmentation response. Left deep veins: Unremarkable. The common femoral, femoral, proximal profunda femoral and popliteal veins are patent without thrombus. Normal Doppler waveforms. Normal compressibility and/or augmentation response. Superficial veins: Bilateral saphenofemoral junctions are patent without thrombus. Soft tissues: Unremarkable. IMPRESSION: No evidence of deep vein thrombosis. at 1755 Reported and signed by: Chilo Cabrera M.D. CC: Samuel Mcguire MD; Elvie Gamboa MD; Daniela Mari Technologist: Claudia Woods RDMS(AB) Trnscb Date/Time: 04/09/2023 (1754) [id number] Orig Print D/T: S: 04/09/2023 (1755) Probe: PAGE 1 Signed Report- ENRRIQUE CEDILLO [id number] 00:00:00 [facility] 1950 Sex: M Name: TEVIN NYE [facility] : 1950 Age/S: 73 / M [address] [place] [address] Blvd Unit #: [id number] Loc: [place] [address] Phys: Daniela Mari Acct: [id number] Dis Date: Status: ADM IN PHONE #: [phone] Exam Date: 04/09/2023 1659 FAX #: [phone] Reason: rule out PAD EXAMS: CPT CODE: [id number] [facility] DEENA SCOTTY 73868 PROCEDURE INFORMATION: Exam: US Duplex Bilateral Lower Extremity Arteries Exam date and time: 04/09/2023 5:05 PM Age: 73 years old Clinical indication: Screening exam; Rule out pad TECHNIQUE: Imaging protocol: Real-time ultrasound scan of the arteries of the bilateral lower extremities with 2-D nj scale, color Doppler flow and spectral waveform analysis. Images documented and saved. COMPARISON: US [facility] VEIN SCOTTY 04/09/2023 4:20 PM FINDINGS: Right common femoral artery: No occlusion or significant stenosis. Normal waveform. The peak systolic velocityis 94 cm/s Right superficial femoral artery: No occlusion or significant stenosis. Normal waveform.Peak systolic velocity is 102 cm/s Right popliteal [...] 49 cm/s and is low amplitude and monophasic,dorsalis pedis is 47 cm/s and is monophasic Left common femoral artery: No occlusion or significantstenosis. Prominent spectral broadening is demonstrated in the left common femoral artery with an elevated peak systolic velocity of 182 cm/s. Left superficial femoral artery: No occlusion or signific ant stenosis. . Peak systolic velocity is 76 cm/s and is monophasic with flow reversal during systole. Left popliteal artery: No occlusion or significant stenosis. Monophasic waveforms. Peak systolic velocity is 68 cm/s. Left calf/foot arteries: No occlusion or significant stenosis in the visualized arteries. Normal waveforms. Dorsalis pedis artery is patent. Peak systolic velocity for the posterior tibial artery is 46 cm/s and is monophasic with slight systolic flow reversal, dorsalis pedis is 52 cm/s and is monophasic with systolic flow reversal. The right ankle brachial index is 0.88 and the left ankle-brachial index could not be performed due to noncompressibility due to arterial sclerotic disease. IMPRESSION: PAGE 1 Signed Report (CONTINUED) Name: TEVIN NYE [facility] : 1950 Age/S: 73 / M [address] [place] [address] Blvd Unit #: [id number] Loc: [place] [address] Phys: Daniela Mari AGACNP Acct: [id number] Dis Date: Status: ADM IN PHONE #: [phone] Exam Date: 04/09/2023 1132 FAX #: [phone] Reason: rule out PAD EXAMS: CPT CODE: [id number] DUP LE ART SCOTTY 53099 (Continued) Suspicion of stenosis disc proximal to the right popliteal artery with abnormal spectral Doppler waveforms distally. On the left side findings are suspicious for proximal stenosis in the area of the left common femoral artery with decreased amplitude monophasic waveforms in thearterial system throughout. The findings are concerning for stenosis throughout the arterial systemof the left lower extremity. Further assessment with a CT angiogram of the lower extremities with peripheral runoffs may be useful, if clinically indicated. at 1920 Reported and signed by: Slava Tran M.D. CC: Samuel Maxwell MD; Elvie Gamboa MD; Daniela Mari Technologist: Beryl Hanson, RT(R)(CT); Claudia Woods, KRUPA(AB); ...Trnscb Date/Time: 04/09/2023 (1919) [email or web address] Orig Print D/T: S: 04/09/2023 (1919) Probe: PAGE 2 Signed Report- NM LUNG PERF [id number] 00:00:00 [facility] : 1950 Sex: M FAX: Samuel Mcguire MD Mather: St: [facility] FAX: Elvie Gamboa MD [phone] FAX: Daniela Mari [phone] Name: CLEMENTTEVIN [facility] : 1950 Age/S: 73/M [address] [place] [address] Blvd Unit #: [id number] Loc: G.5517 [place] [address] Phys: Daniela Mari Acct: [id number] Dis Date: Status: ADM IN PHONE #: [phone] Exam Date: 04/09/2023 1210 FAX #: [phone] Reason: R/O PE, elevated D-dimer, SOB EXAMS: CPT CODE: [id number] NM LUNG PERF PARTICULATE [id number] PROCEDURE INFORMATION: Exam: NM Lung Perfusion Exam date and time: 04/09/2023 12:29 PM Age: 73 years old Clinical indication: Other: R/O pe, elevated d-dimer, SOB TECHNIQUE: Imaging protocol: Nuclear pulmonary perfusion imaging was performed. Views: Perfusion acquired with multiple projections. ADDITIONAL STUDY INFORMATION: Radiopharmaceutical: 5 mCi Tc-99m MAA (Macroaggregated Albumin), through the left antecubital IV. COMPARISON: DX XR CHEST 2 V 04/08/2023 2:38 PM FINDINGS: Perfusion: Decreased perfusion is seen to the upper lungs bilaterally. Moderate defect is seen to the lateral right upper lung. Mild decreased perfu harvey to the lateral left mid lung and left lung base and to the lateral right lung base. No other significant subsegmental or segmental defects throughout both lungs. Emphysematous changes seen on chest radiograph. IMPRESSION: 1. Intermediate likelihood ratio for pulmonary embolism. Recommend CTA chest with contrast using PE protocol for further evaluation. Normal: < 5% probability of pulmonary embolism. Low likelihood ratio: < 20 % probability of pulmonary embolism. Intermediate likelihood ratio: 20-80% probability of pulmonary embolism. High likelihood ratio: > 80% probability of pulmonary embolism. at 1257 Reported and signed by: Manish Son M.D. CC: Samuel Mcguire MD; Elvie Gamboa MD; Daniela Mari Technologist: DIANE Prabhakar (N)(CT) Trnscrd Date/Time/By: 04/09/2023 (1257) : By: BuckCS18 Orig Print D/T: S: 04/09/2023 (2493) PAGE 1 Signed ReportGLUCOSE [id number] 23:27:00* Test Item Value Reference Range Interpretation Comme nts GLUCOSE BEDSIDE (test code = GLUBED) 119 MG/DL 70-110 H Performed by wendy malcolm 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 [facility] BASIC METABOLIC [id number] 22:19:00* Test Item Value Reference Range Interpretation Comme nts SODIUM (test code = NA) 141 mEq/L 134-147 N POTASSIUM (test code = K) 4.3 mEq/L 3.4-5.0 N CHLORIDE (test code = CL) 105 mEq/L 100-108 N CARBON DIOXIDE (test code = CO2) 26 mEq/l 21-33 N ANION GAP (test code = GAP) 14 0-20 N GLUCOSE (test code = GLU) 88 mg/dL 70-110 BLOOD UREA NITROGEN (test code = BUN) 47 mg/dL 7-18 H GLOMERULAR FILTRATION RATE (test code = GFR) 21.4 70-80 L The Glomerular Filtration Rate is a calculated parameterbased on serum Creatinine, patient age and sex. GFR valuesless than 60 mL/min/1.73 square meters are indicative ofChronic Kidney Disease. Values less than 15 mL/min/1.73square meters indicate Kidney failure. The calculation forGFR is based on the CKD-EPI (2020) calculation. This formulais race indifferent and is the recommended formula for GFRby the National Kidney Foundation for Adults.The GFR will not calculate if the sex is unknown or if thepatient's age is <18 years. CREATININE (test code = CREAT) 3.0 mg/dL 0.6-1.3 H CALCIUM (test code = CA) 9.2 mg/dL 8.0-10.5 N [id number] 22:19:00* Test Item Value Reference Range Interpretation Comme nts MAGNESIUM (test code = MAG) 1.66 mg/dL 1.80-2.40 L CALCIUM [id number] 22:19:00* Test Item Value Reference Range Interpretation Comme nts CALCIUM IONIZED (test code = BIBIANA) 1.20 MMOL/L 1.09-1.30 N GLUCOSE [id number] 20:37:00* Test Item Value Reference Range Interpretation Comme nts GLUCOSE BEDSIDE (test code = GLUBED) 84 MG/DL 70-110 N Performed by cer tified 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 [facility] GLUCOSE [id number] 20:19:00* Test Item Value Reference Range Interpretation Comme nts GLUCOSE BEDSIDE (test code = GLUBED) 69 MG/DL 70-110 L Performed by cer tified 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 [facility] [id number] 17:06:00* Test Item Value Reference Range Interpretation Comme nts D-DIMER (test code = DDIMER) 1496 ng/mlFEU See_Comment HH Critical result called to Radha [email or web address].[email or web address] at 1703 04/08/23Nurse read back result and tech confirmed it's correct? YESTHROMBOSIS AND/OR PULMONARY EMBOLISM AND THE CLINICAL CUT- OFF VALUE FOR EXCLUSION (500 ng/mL FEU) OF THESE CONDITIONSIS VALIDATED BY THE STORE CONSULTANT OF THE METHOD. A NEGATIVE D-DIMER RESULT WHEN COMBINED WITH A CLINICALASSESSMENT OF LOW PRETEST PROBABILITY HAS BEEN SHOWN TO HAVEA HIGH NEGATIVE PREDICTIVE VALUE OF DVT OR PE. D-DIMER VALUES >500 ng/mL FEU ARE NOT DIAGNOSTIC FOR DVT, PEor DIC WITHOUT OTHER CONFIRMATORY TESTS AND APPROPRIATECLINICAL EUALUATIONS. [Automated message] The system which generated this result transmitted reference range: <=500. The reference range was not used to interpret this result as normal/abnormal. UA RFLX MICR CULT IF [id number] 15:41:00* Test Item Value Reference Range Interpretation Comme nts UA COLOR (test code = COLU) STRAW YEL/STRAW UA APPEARANCE (test code = APPU) CLEAR CLEAR UA GLUCOSE DIPSTICK (test co de = DGLUU) NEGATIVE NEGATIVE UA BILIRUBIN DIPSTICK (test code = BILU) NEGATIVE NEGATIVE UA KETONE DIPSTICK (test cod e = KETU) NEGATIVE NEGATIVE UA SPECIFIC GRAVITY (test co de = SGU) 1.006 1.005-1.030 N UA BLOOD DIPSTICK (test code = KYLE) NEGATIVE NEGATIVE UA PH DIPSTICK (test code = LITA) 5.0 5.0-7.0 N UA PROTEIN DIPSTICK (test co de = PROU) NEGATIVE NEGATIVE UA UROBILINIOGEN DIPSTICK (test code = URO) 0.2 mg/dL 0.2-1.0 UA NITRITE DIPSTICK (test co de = SUKUMAR) NEGATIVE NEGATIVE UA LEUKOCYTE ESTERASE DIPSTI CK (test code = LEUU) NEGATIVE NEGATIVE UA WBC (test code = WBCU) 0-3 WBC/HPF 0-3 UA RBC (test code = RBCU) 0-3 RBC/HPF 0-3 UA WBC NO REFLEX (test code = WBCUCL) 0-3 WBC/HPF 0-3 UA BACTERIA (test code = BACU) NONE SEEN /HPF NONE SEEN UA SQUAMOUS CELLS (test code = SQU) NONE SEEN /HPF NONE SEEN UA MUCUS (test code = MUCU) TRACE /LPF NONE SEEN Indication for culture: Dysuria/FrequencySpecimen Description: CLEAN CATCHB-TYPE NATRIURETIC [id number] 14:50:00* Test Item Value Reference Range Interpretation Comme nts B-TYPE NATRIURETIC PEPTIDE ( test code = BNP) 396.0 PG/ML 0-100 H COMPREHENSIVE METABOLIC [id number] 14:44:00* Test Item Value Reference Range Interpretation Comme nts SODIUM (test code = NA) 142 mEq/L 134-147 N POTASSIUM (test code = K) 4.2 mEq/L 3.4-5.0 N CHLORIDE (test code = CL) 108 mEq/L 100-108 N CARBON DIOXIDE (test code = CO2) 26 mEq/l 21-33 N ANION GAP (test code = GAP) 13 0-20 N GLUCOSE (test code = GLU) 63 mg/dL 70-110 L BLOOD UREA NITROGEN (test code = BUN) 46 mg/dL 7-18 H GLOMERULAR FILTRATION RATE (test code = GFR) 22.3 70-80 L The Glomerular Filtration Rate is a calculated parameterbased on serum Creatinine, patient age and sex. GFR valuesless than 60 mL/min/1.73 square meters are indicative ofChronic Kidney Disease. Values less than 15 mL/min/1.73square meters indicate Kidney failure. The calculation forGFR is based on the CKD-EPI (202) calculation. This formulais race indifferent and is the recommended formula for GFRby the National Kidney Foundation for Adults.The GFR will not calculate if the sex is unknown or if thepatient's age is <18 years. CREATININE (test code = CREAT) 2.9 mg/dL 0.6-1.3 H TOTAL PROTEIN (test code = PROT) 6.2 g/dL 6.4-8.2 L ALBUMIN (test code = ALB) 2.70 g/dL 3.4-5.0 L CALCIUM (test code = CA) 8.4 mg/dL 8.0-10.5 N BILIRUBIN TOTAL (test code = BILT) 0.20 mg/dL 0.0-1.0 N SGOT/AST (test code = AST) 21 IUnit/L 15-37 N SGPT/ALT (test code = ALT) 27 IUnit/L 30-65 L ALKALINE PHOSPHATASE TOTAL (test code = ALKP) 89 IUnit/L 20-125 N TROP-I HIGH [id number] 14:44:00* Test Item Value Reference Range Interpretation Comme nts TROP-I HIGH SENSITIVITY (test code = TROPIHS) 16 ng/L 0-54 N CAUTION: Units o f the current test methodology (ng/L) differfrom the prior test methodology (ng/mL) by a factor of 1000. 99th Percentile Upper Reference Limit (URL): Females: 34 ng/LMales: 54 ng/L In order to distinguish acute elevations of high sensitivitytroponin from other clinical conditions, the FourthUniversal Definition of Myocardial Infarction stressesclinical assessment and the demonstration of a rise and/orfall in serial troponin results above the URL. These results were obtained using Siemens CoworkingON IM TnIHreagent. Results from different methodologies should not becompared to one another as quantitative results and URLs mayvary by method. CBC W/AUTO [id number] 14:24:00* Test Item Value Reference Range Interpretation Comme nts WHITE BLOOD CELL (test code = WBC) 5.7 x10 3/uL 4.5-11.0 N RED BLOOD CELL (test code = RBC) 3.12 x10 6/uL 4.00-5.60 L HEMOGLOBIN (test code = HGB) 8.9 g/dL 12.5-16.9 L HEMATOCRIT (test code = HCT) 28.2 % 37.5-50.7 L MEAN CELL VOLUME (test code = MCV) 90.4 fL 81.0-99.0 N MEAN CELL HGB (test code = MCH) 28.5 pg 27.0-33.0 N MEAN CELL HGB CONCETRATION (test code = MCHC) 31.6 g/dL 33.0-37.0 L RED CELL DISTRIBUTION WIDTH CV (test code = RDW) 15.9 % 11.5-14.5 H PLATELET COUNT (test code = PLT) 266 x10 3/uL 150-400 N NEUTROPHIL % (test code = NT%) 83.9 % 56.0-77.0 H LYMPHOCYTE % (test code = LY%) 7.5 % 14.0-32.0 L NEUTROPHIL # (test code = NT#) 4.78 x10 3/uL 2.0-7.6 N LYMPHOCYTE # (test code = LY#) 0.43 x10 3/uL 1.0-3.8 L MANUAL DIFF REQUIRED (test c ode = MDIFF) NO RED CELL DISTRIBUTION WIDTH SD (test code = RDW-SD) 50.5 fL 37.0-54.0 N MEAN PLATELET VOLUME (test c ode = MPV) 10.1 fL 7.0-9.0 H IMMATURE GRANULOCYTE % (test code = IG%) 1.6 % 0.0-2.0 N MONOCYTE % (test code = MO%) 5.6 % 4.8-9.0 N EOSINOPHIL % (test code = EO%) 0.7 % 0.3-3.7 N BASOPHIL % (test code = BA%) 0.7 % 0.0-2.0 N NUCLEATED RBC % (test code = NRBC%) 0.0 % 0-0 N IMMATURE GRANULOCYTE # (test code = IG#) 0.09 x10 3/uL 0.00-0.03 H MONOCYTE # (test code = MO#) 0.32 x10 3/uL 0.1-0.8 N EOSINOPHIL # (test code = EO#) 0.04 x10 3/uL 0.0-0.2 N BASOPHIL # (test code = BA#) 0.04 x10 3/uL 0.0-0.2 N NUCLEATED RBC # (test code = NRBC#) 0.00 x10 3/uL 0.0-0.1 N - XR CHEST 2 [id number] 00:00:00 [facility] 1950 Sex: M FAX: Samuel Mcguire MD Mather: St: [facility] FAX: Paolo Arreola Name: TEVIN NYE [facility] : 1950 Age/S: 73/M [address] [place] [address] Unit #: [id number] Loc: [place] [address] Phys: Danny Arreola MD Acct: [id number] Dis Date: Status: [facility] ER PHONE #: [phone] Exam Date: FAX #: [phone] Reason: SOB, CHEST PAIN EXAMS: CPT CODE: [id number] XR CHEST 2 V 09413 PROCEDURE INFORMATION: Exam: XR Chest Exam date and time: 04/08/2023 2:38 PM Age: 73 years old Clinical indication: Shortness of breath; Additional info: SOB, chest pain [...] in the right lower lung with prominent peribr onchiolar markings noted. [id number] Reported and signed by: Karen Valentin M.D. CC: Samuel Mcguire MD; Paolo Arreola MD Technologist: RT Ofe(R) Trnscrd Date/Time/By: 04/08/2023 (1534) : By: Chang.CER Orig Print D/T: S: 04/08/2023 (6816) PAGE 1 Signed Report- XR CHEST COMP [id number] 00:00:00 [facility] GABRIELLA POPEName: TEVIN NYE : 1950 Sex: M FAX: Samuel Mcguire MD Mather: St: [facility] Name: TEVIN NYE [facility] Gabriella Pope : 1950 Age/S: 72/M [address] [place] [address] Unit #: [id number] Loc: [place] [address] Phys: Samuel Mcguire MD Acct: [id number] Dis Date: Status: REG CLI PHONE #: [phone] Exam Date: 03/19/2023 1511 FAX #: [phone] Reason: J44.9 EXAMS: CPT CODE: [id number] XR CHEST COMP 4+V 48260 PROCEDURE INFORMATION: Exam: XR Chest Exam date and time: 03/19/2023 2:37 PM Age: 72 years [...] and signed by: Lucille Mauricio M.D. CC: Samuel Mcguire MD Technologist: RT Stacia(R) Trnscrd Date/Time/By: 03/19/2023 (153) : By: BuckAB61 Orig Print D/T: S: 03/19/2023 (153) PAGE 1 Signed ReportGLUCOSE BEDSIDE 2023-03-13 12:34:00* Test Item Value Reference Range Interpretation Comme nts GLUCOSE BEDSIDE (test code = GLUBED) 307 MG/DL 70-110 H Performed by cer yun 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 [facility] GLUCOSE [id number] 07:44:00* Test Item Value Reference Range Interpretation Comme nts GLUCOSE BEDSIDE (test code = GLUBED) 198 MG/DL 70-110 H Performed by [facility] janisied 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 [facility] BASIC METABOLIC [id number] 05:21:00* Test Item Value Reference Range Interpretation Comme nts SODIUM (test code = NA) 143 mEq/L 134-147 N POTASSIUM (test code = K) 4.2 mEq/L 3.4-5.0 N CHLORIDE (test code = CL) 105 mEq/L 100-108 N CARBON DIOXIDE (test code = CO2) 33 mEq/l 21-33 N ANION GAP (test code = GAP) 9 0-20 N GLUCOSE (test code = GLU) 187 mg/dL 70-110 H BLOOD UREA NITROGEN (test code = BUN) 43 mg/dL 7-18 H GLOMERULAR FILTRATION RATE (test code = GFR) 45.8 70-80 L The Glomerular Filtration Rate is a calculated parameterbased on serum Creatinine, patient age and sex. GFR valuesless than 60 mL/min/1.73 square meters are indicative ofChronic Kidney Disease. Values less than 15 mL/min/1.73square meters indicate Kidney failure. The calculation forGFR is based on the CKD-EPI (202) calculation. This formulais race indifferent and is the recommended formula for GFRby the National Kidney Foundation for Adults.The GFR will not calculate if the sex is unknown or if thepatient's age is <18 years. CREATININE (test code = CREAT) 1.6 mg/dL 0.6-1.3 H CALCIUM (test code = CA) 8.5 mg/dL 8.0-10.5 N [id number] 05:21:00* Test Item Value Reference Range Interpretation Comme nts MAGNESIUM (test code = MAG) 1.81 mg/dL 1.80-2.40 N CBC W/AUTO [id number] 05:05:00* Test Item Value Reference Range Interpretation Comme nts WHITE BLOOD CELL (test code = WBC) 6.2 x10 3/uL 4.5-11.0 N RED BLOOD CELL (test code = RBC) 3.43 x10 6/uL 4.00-5.60 L HEMOGLOBIN (test code = HGB) 10.4 g/dL 12.5-16.9 L HEMATOCRIT (test code = HCT) 31.9 % 37.5-50.7 L MEAN CELL VOLUME (test code = MCV) 93.0 fL 81.0-99.0 N MEAN CELL HGB (test code = MCH) 30.3 pg 27.0-33.0 N MEAN CELL HGB CONCETRATION (test code = MCHC) 32.6 g/dL 33.0-37.0 L RED CELL DISTRIBUTION WIDTH CV (test code = RDW) 14.8 % 11.5-14.5 H RED CELL DISTRIBUTION WIDTH SD (test code = RDW-SD) 50.4 fL 37.0-54.0 N PLATELET COUNT (test code = PLT) 169 x10 3/uL 150-400 N MEAN PLATELET VOLUME (test c ode = MPV) 10.6 fL 7.0-9.0 H NEUTROPHIL % (test code = NT%) 85.4 % 56.0-77.0 H IMMATURE GRANULOCYTE % (test code = IG%) 1.0 % 0.0-2.0 N LYMPHOCYTE % (test code = LY%) 4.6 % 14.0-32.0 L MONOCYTE % (test code = MO%) 7.2 % 4.8-9.0 N EOSINOPHIL % (test code = EO%) 1.8 % 0.3-3.7 N BASOPHIL % (test code = BA%) 0.0 % 0.0-2.0 N NUCLEATED RBC % (test code = NRBC%) 0.0 % 0-0 N NEUTROPHIL # (test code = NT#) 5.33 x10 3/uL 2.0-7.6 N IMMATURE GRANULOCYTE # (test code = IG#) 0.06 x10 3/uL 0.00-0.03 H LYMPHOCYTE # (test code = LY#) 0.29 x10 3/uL 1.0-3.8 L MONOCYTE # (test code = MO#) 0.45 x10 3/uL 0.1-0.8 N EOSINOPHIL # (test code = EO#) 0.11 x10 3/uL 0.0-0.2 N BASOPHIL # (test code = BA#) 0.00 x10 3/uL 0.0-0.2 N NUCLEATED RBC # (test code = NRBC#) 0.00 x10 3/uL 0.0-0.1 N MANUAL DIFF REQUIRED (test c ode = MDIFF) NO GLUCOSE [id number] 19:22:00* Test Item Value Reference Range Interpretation Comme [facility] GLU[facility] B[facility] (test code = GLUBED) 235 MG/DL 70-110 H Performed by cer tified 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 [facility] GLUCOSE [id number] 16:47:00* Test Item Value Reference Range Interpretation Comme nts GLUCOSE BEDSIDE (test code = GLUBED) 186 MG/DL 70-110 H Performed by cer tified 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 [facility] GLUCOSE [id number] 12:04:00* Test Item Value Reference Range Interpretation Comme nts GLUCOSE BEDSIDE (test code = GLUBED) 279 MG/DL 70-110 H Performed by cer tified 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 [facility] GLUCOSE [id number] 08:19:00* Test Item Value Reference Range Interpretation Comme nts GLUCOSE BEDSIDE (test code = GLUBED) 204 MG/DL 70-110 H Performed by cer tified 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 [facility] BASIC METABOLIC [id number] 04:59:00* Test Item Value Reference Range Interpretation Comme nts SODIUM (test code = NA) 144 mEq/L 134-147 N POTASSIUM (test code = K) 4.5 mEq/L 3.4-5.0 N CHLORIDE (test code = CL) 106 mEq/L 100-108 N CARBON DIOXIDE (test code = CO2) 33 mEq/l 21-33 N ANION GAP (test code = GAP) 9 0-20 N GLUCOSE (test code = GLU) 182 mg/dL 70-110 H BLOOD UREA NITROGEN (test code = BUN) 45 mg/dL 7-18 H GLOMERULAR FILTRATION RATE (test code = GFR) 45.8 70-80 L The Glomerular Filtration Rate is a calculated parameterbased on serum Creatinine, patient age and sex. GFR valuesless than 60 mL/min/1.73 square meters are indicative ofChronic Kidney Disease. Values less than 15 mL/min/1.73square meters indicate Kidney failure. The calculation forGFR is based on the CKD-EPI (2020) calculation. This formulais race indifferent and is the recommended formula for GFRby the National Kidney Foundation for Adults.The GFR will not calculate if the sex is unknown or if thepatient's age is <18 years. CREATININE (test code = CREAT) 1.6 mg/dL 0.6-1.3 H CALCIUM (test code = CA) 8.3 mg/dL 8.0-10.5 N [id number] 04:59:00* Test Item Value Reference Range Interpretation Comme nts MAGNESIUM (test code = MAG) 1.95 mg/dL 1.80-2.40 N CBC W/AUTO [id number] 04:48:00* Test Item Value Reference Range Interpretation Comme nts WHITE BLOOD CELL (test code = WBC) 5.8 x10 3/uL 4.5-11.0 N RED BLOOD CELL (test code = RBC) 3.59 x10 6/uL 4.00-5.60 L HEMOGLOBIN (test code = HGB) 11.2 g/dL 12.5-16.9 L HEMATOCRIT (test code = HCT) 32.9 % 37.5-50.7 L MEAN CELL VOLUME (test code = MCV) 91.6 fL 81.0-99.0 N MEAN CELL HGB (test code = MCH) 31.2 pg 27.0-33.0 N MEAN CELL HGB CONCETRATION (test code = MCHC) 34.0 g/dL 33.0-37.0 N RED CELL DISTRIBUTION WIDTH CV (test code = RDW) 14.9 % 11.5-14.5 H RED CELL DISTRIBUTION WIDTH SD (test code = RDW-SD) 50.3 fL 37.0-54.0 N PLATELET COUNT (test code = PLT) 193 x10 3/uL 150-400 N MEAN PLATELET VOLUME (test c ode = MPV) 11.3 fL 7.0-9.0 H NEUTROPHIL % (test code = NT%) 82.0 % 56.0-77.0 H IMMATURE GRANULOCYTE % (test code = IG%) 1.2 % 0.0-2.0 N LYMPHOCYTE % (test code = LY%) 5.8 % 14.0-32.0 L MONOCYTE % (test code = MO%) 9.3 % 4.8-9.0 H EOSINOPHIL % (test code = EO%) 1.7 % 0.3-3.7 N BASOPHIL % (test code = BA%) 0.0 % 0.0-2.0 N NUCLEATED RBC % (test code = NRBC%) 0.0 % 0-0 N NEUTROPHIL # (test code = NT#) 4.78 x10 3/uL 2.0-7.6 N IMMATURE GRANULOCYTE # (test code = IG#) 0.07 x10 3/uL 0.00-0.03 H LYMPHOCYTE # (test code = LY#) 0.34 x10 3/uL 1.0-3.8 L MONOCYTE # (test code = MO#) 0.54 x10 3/uL 0.1-0.8 N EOSINOPHIL # (test code = EO#) 0.10 x10 3/uL 0.0-0.2 N BASOPHIL # (test code = BA#) 0.00 x10 3/uL 0.0-0.2 N NUCLEATED RBC # (test code = NRBC#) 0.00 x10 3/uL 0.0-0.1 N MANUAL DIFF REQUIRED (test c ode = MDIFF) NO - XR SWLW FUNC W/C [id number] 00:00:00 [facility] GABRIELLA POPEName: TEVIN NYE : 1950 Sex: M FAX: Luci Wang [phone] Mather: St: ADM FAX: Evon Garcia [facility] [phone] -- Name: TIGRE NYE : 1950 Age/S: 72/M [address] [place] [address] Blvd Unit #: [id number] Loc: [place] [place] [address] Phys: Evon Andrew Physic Acct: [id number] Dis Date: Status: ADM IN PHONE #: [phone] Exam Date: 03/12/2023 1356 FAX #: [phone] Reason: PROBLEMS SWALLOWING EXAMS: CPT CODE: [id number] XR SWLW FUN W/C V 63841 PROCEDURE INFORMATION: Exam: FL Swallowing Function with Cine or Video Exam date and time: 03/12/2023 1:16 PM Age: 72 years old Clinical indication: Dysphagia (difficulty swallowing); Additional info: Problems swallowing TECHNIQUE: Imaging protocol: Swallowing function, with cineradiography/ videoradiograph. Guided with fluoroscopy. COMPARISON: CR XR CHEST 1V 03/12/2023 5:54 AM RADIATION DOSE METRICS: Fluoroscopy time (seconds): seconds= 20 Number of fluoro spot images: images= 8 Reference air kerma (JUANCARLOS): 0.93 mGy FINDINGS: Assistants: See also separate speech pathology report. Plate Conditioner: Mild multilevel cervical spondylosis. Procedure summary: Normal swallowing with solid and liquids. No aspiration. IMPRESSION: Unremarkable swallowing study. The reader is referred to dedicated speech therapy report for details. at 1425 Reported and signed by: Erlin Brown M.D. CC: Luci Villeda MD; Evon Andrew Technologist: RT Ofe(R) Trnscrd Date/Time/By: 03/12/2023 (1424) : By: Wilbert Orig Print D/T: S: 03/12/2023 (1424) PAGE 1 Signed Report- [facility] [id number] 00:00:00 [facility] GABRIELLA POPEName: TEVIN NYE : 1950 Sex: M Name: TEVIN NYE [facility] : 1950 Age/S: 72 / M [address] [place] [address] Unit #: [id number] Loc: TERESA Lerma [address] Phys: Evon Andrew Acct: [id number] Dis Date: Status: ADM IN PHONE #: [phone] Exam Date: 03/12/2023701 FAX #: [phone] Reason: R/O DVT EXAMS: CPT CODE: [id number] DUP VEIN SCOTTY 13213 PROCEDURE INFORMATION: Exam: US Duplex Lower Extremity Veins, Bilateral Exam date and time: 03/12/2023 6:29 AM Age: 72 years old Clinical indication: Screening exam; S/P cabg; Additional info: R/O dvt TECHNIQUE: Imaging protocol: Real-time duplex ultrasound of thebilateral extremities with 2-D nj scale, color Doppler flow and spectral waveform analysis including responses to compression and other maneuvers (when performed) with image documentation. Complete exam focused on the lower extremity veins. COMPARISON: US DUP VEIN SCOTTY 03/04/2023 4:44 AM FINDINGS:Right deep veins: Common femoral, superficial femoral, popliteal [...] Andrew Technologist: Nancy Márquez RDMS(AB)(OB) Trnscb Date/Time: (718) BuckAC53 Orig Print D/T: S: 03/12/2023 (718) Probe: PAGE 1 Signed Report- XR CHEST 1 [id number] 00:00:00 [facility] 1950 Sex: M FAX: Luci Wang [phone] Mather: St: ADM FAX: Evon Garcia [facility] [phone] -- Name: TEVIN NYE [facility] : 1950 Age/S: 72/M [address] [place] [address] Unit #: [id number] Loc: G.[address] [place] [address] Phys: Evon Andrew Physic Acct: [id number] Dis Date: Status: ADM IN PHONE #: [phone] Exam Date: 03/12/2023 0640 FAX #: [phone] Reason: S/P CABG, R/O EFFUSION EXAMS: CPT CODE: [id number] XR CHEST 1 V 23469 PROCEDURE INFORMATION: Exam: XR Chest Exam date and time: 03/12/2023 5:54 AM Age: 72 years old Clinical indication: Other: S/P cabg, R/O effusion TECHNIQUE: Imagingprotocol: Radiologic exam of the chest. Views: 1 view. COMPARISON: CR XR CHEST 1V 03/11/2023 5:41 AM FINDINGS: Tubes, catheters and devices: None. Lungs: Qxpo-em-qgvytkwm bilateral perihilar and basilar interstitial lung opacities, suggesting pulmonary edema versus infiltrates. The peripheral lungs are otherwise clear. Bilateral pulmonary opacities are most prominent within the basilar lungs. The lung opacities appear stable to improved since previous imaging. Pleural spaces: Small volume bilatera l pleural effusions. Heart/Mediastinum: Cardiac silhouette appears mildly enlarged. Vasculature: Tortuous and ectatic aorta is demonstrated. Mild atherosclerotic calcification demonstrated within theaorta. Bones/joints: Sternotomy wires, hardware is demonstrated. IMPRESSION: 1. Mild enlarged cardiac silhouette. 2. Small bilateral pleural effusions. 3. Lwbl-dk-vbeqszgi pulmonary edema versus infiltrates. at 0733 Reported and signed by: David Espinal M.D. CC: Luci Villeda MD; Evon Andrew Technologist: SHONNA Duncan) Trnscrd Date/Time/By: 03/12/2023 (732) : By: [email or web address] Orig Vianca nt D/T: S: 03/12/2023 (732) PAGE 1 Signed ReportGLUCOSE [id number] 20:22:00* Test Item Value Reference Range Interpretation Comme nts GLUCOSE BEDSIDE (test code = GLUBED) 136 MG/DL 70-110 H Performed by [facility] tified 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 [facility] GLUCOSE [id number] 18:31:00* Test Item Value Reference Range Interpretation Comme nts GLUCOSE BEDSIDE (test code = GLUBED) 199 MG/DL 70-110 H Performed by [facility] tified 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 [facility] GLUCOSE [id number] 15:02:00* Test Item Value Reference Range Interpretation Comme nts GLUCOSE BEDSIDE (test code = GLUBED) 206 MG/DL 70-110 H Performed by cer tified 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 [facility] GLUCOSE [id number] 11:44:00* Test Item Value Reference Range Interpretation Comme nts GLUCOSE BEDSIDE (test code = GLUBED) 196 MG/DL 70-110 H Performed by [facility] tified 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 [facility] CBC W/AUTO [id number] 04:54:00* Test Item Value Reference Range Interpretation Comme nts WHITE BLOOD CELL (test code = WBC) 7.6 x10 3/uL 4.5-11.0 RED BLOOD CELL (test code = RBC) 3.80 x10 6/uL 4.00-5.60 L HEMOGLOBIN (test code = HGB) 11.4 g/dL 12.5-16.9 L HEMATOCRIT (test code = HCT) 35.8 % 37.5-50.7 L MEAN CELL VOLUME (test code = MCV) 94.2 fL 81.0-99.0 MEAN CELL HGB (test code = MCH) 30.0 pg 27.0-33.0 N MEAN CELL HGB CONCETRATION (test code = MCHC) 31.8 g/dL 33.0-37.0 L RED CELL DISTRIBUTION WIDTH CV (test code = RDW) 15.4 % 11.5-14.5 H RED CELL DISTRIBUTION WIDTH SD (test code = RDW-SD) 53.1 fL 37.0-54.0 N PLATELET COUNT (test code = PLT) 169 x10 3/uL 150-400 N MEAN PLATELET VOLUME (test c ode = MPV) 10.9 fL 7.0-9.0 H NEUTROPHIL % (test code = NT%) 82.5 % 56.0-77.0 H IMMATURE GRANULOCYTE % (test code = IG%) 1.7 % 0.0-2.0 N LYMPHOCYTE % (test code = LY%) 5.5 % 14.0-32.0 L MONOCYTE % (test code = MO%) 9.6 % 4.8-9.0 H EOSINOPHIL % (test code = EO%) 0.3 % 0.3-3.7 N BASOPHIL % (test code = BA%) 0.4 % 0.0-2.0 N NUCLEATED RBC % (test code = NRBC%) 0.0 % 0-0 N NEUTROPHIL # (test code = NT#) 6.31 x10 3/uL 2.0-7.6 N IMMATURE GRANULOCYTE # (test code = IG#) 0.13 x10 3/uL 0.00-0.03 H LYMPHOCYTE # (test code = LY#) 0.42 x10 3/uL 1.0-3.8 L MONOCYTE # (test code = MO#) 0.73 x10 3/uL 0.1-0.8 N EOSINOPHIL # (test code = EO#) 0.02 x10 3/uL 0.0-0.2 N BASOPHIL # (test code = BA#) 0.03 x10 3/uL 0.0-0.2 N NUCLEATED RBC # (test code = NRBC#) 0.00 x10 3/uL 0.0-0.1 N MANUAL DIFF REQUIRED (test c ode = MDIFF) NO BASIC METABOLIC [id number] 04:47:00* Test Item Value Reference Range Interpretation Comme nts SODIUM (test code = NA) 140 mEq/L 134-147 N POTASSIUM (test code = K) 4.0 mEq/L 3.4-5.0 N CHLORIDE (test code = CL) 105 mEq/L 100-108 N CARBON DIOXIDE (test code = CO2) 28 mEq/l 21-33 N ANION GAP (test code = GAP) 11 0-20 N GLUCOSE (test code = GLU) 204 mg/dL 70-110 H BLOOD UREA NITROGEN (test code = BUN) 34 mg/dL 7-18 H GLOMERULAR FILTRATION RATE (test code = GFR) 45.8 70-80 L The Glomerular Filtration Rate is a calculated parameterbased on serum Creatinine, patient age and sex. GFR valuesless than 60 mL/min/1.73 square meters are indicative ofChronic Kidney Disease. Values less than 15 mL/min/1.73square meters indicate Kidney failure. The calculation forGFR is based on the CKD-EPI (2020) calculation. This formulais race indifferent and is the recommended formula for GFRby the National Kidney Foundation for Adults.The GFR will not calculate if the sex is unknown or if thepatient's age is <18 years. CREATININE (test code = CREAT) 1.6 mg/dL 0.6-1.3 H CALCIUM (test code = CA) 8.7 mg/dL 8.0-10.5 N [id number] 04:47:00* Test Item Value Reference Range Interpretation Comme nts MAGNESIUM (test code = MAG) 2.13 mg/dL 1.80-2.40 - XR CHEST 1 [id number] 00:00:00 [facility] TEVIN NYE : 1950 Sex: M FAX: Arnold HoganJim acevesnan [phone] M[place]: St: ADM FAX: Evon Garcia [facility] [phone] -- Name: TEVIN NYE [facility] : 1950 Age/S: 72/M [address] [place] [address] Unit #: [id number] Loc: G.[address] [place] [address] Phys: Evon Andrew Physic Acct: [id number] Dis Date: Status: ADM IN PHONE #: [phone] Exam Date: 03/11/2023 0650 FAX #: [phone] Reason: S/P CABG, R/O EFFUSION EXAMS: CPTCODE: [id number] XR CHEST 1 V 83506 PROCEDURE INFORMATION: Exam: XR Chest Exam date and time: 03/11/2023 5:41 AM Age: 72 years old Clinical indication: [...] Luci Villeda MD; Evon Andrew Technologist: RT Perla(Karuna) Trnscrd Date/Time/By: 03/11/2023 (729) : By: [email or web address] Orig Print D/T: S: 03/11/2023 (729) PAGE 1 Signed ReportGLUCOSE [id number] 20:50:00* Test Item Value Reference Range Interpretation Comme [facility] GLUCOSE BEDSIDE (test code = GLUBED) 231 MG/DL 70-110 H Performed by cer tified 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 [facility] GLUCOSE [id number] 12:37:00* Test Item Value Reference Range Interpretation Comme nts GLUCOSE BEDSIDE (test code = GLUBED) 197 MG/DL 70-110 H Performed by [facility] tified 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 [facility] GLUCOSE [id number] 08:42:00* Test Item Value Reference Range Interpretation Comme [facility] GLUCOSE BEDSIDE (test code = GLUBED) 198 MG/DL 70-110 H Performed by [facility] tified 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 [facility] BASIC METABOLIC [id number] 03:47:00* Test Item Value Reference Range Interpretation Comme nts SODIUM (test code = NA) 143 mEq/L 134-147 N POTASSIUM (test code = K) 4.1 mEq/L 3.4-5.0 N CHLORIDE (test code = CL) 109 mEq/L 100-108 H CARBON DIOXIDE (test code = CO2) 30 mEq/l 21-33 N ANION GAP (test code = GAP) 8 0-20 N GLUCOSE (test code = GLU) 174 mg/dL 70-110 H BLOOD UREA NITROGEN (test code = BUN) 55 mg/dL 7-18 H GLOMERULAR FILTRATION RATE (test code = GFR) 49.5 70-80 L The Glomerular Filtration Rate is a calculated parameterbased on serum Creatinine, patient age and sex. GFR valuesless than 60 mL/min/1.73 square meters are indicative ofChronic Kidney Disease. Values less than 15 mL/min/1.73square meters indicate Kidney failure. The calculation forGFR is based on the CKD-EPI (202) calculation. This formulais race indifferent and is the recommended formula for GFRby the National Kidney Foundation for Adults.The GFR will not calculate if the sex is unknown or if thepatient's age is <18 years. CREATININE (test code = CREAT) 1.5 mg/dL 0.6-1.3 H CALCIUM (test code = CA) 8.2 mg/dL 8.0-10.5 N [id number] 03:47:00* Test Item Value Reference Range Interpretation Comme nts MAGNESIUM (test code = MAG) 2.52 mg/dL 1.80-2.40 H CALCIUM [id number] 03:47:00* Test Item Value Reference Range Interpretation Comme nts CALCIUM IONIZED (test code = BIBIANA) 1.09 MMOL/L 1.09-1.30 N CBC W/AUTO [id number] 03:31:00* Test Item Value Reference Range Interpretation Comme nts WHITE BLOOD CELL (test code = WBC) 5.3 x10 3/uL 4.5-11.0 N RED BLOOD CELL (test code = RBC) 3.59 x10 6/uL 4.00-5.60 L HEMOGLOBIN (test code = HGB) 10.6 g/dL 12.5-16.9 L HEMATOCRIT (test code = HCT) 32.4 % 37.5-50.7 L MEAN CELL VOLUME (test code = MCV) 90.3 fL 81.0-99.0 N MEAN CELL HGB (test code = MCH) 29.5 pg 27.0-33.0 N MEAN CELL HGB CONCETRATION (test code = MCHC) 32.7 g/dL 33.0-37.0 L RED CELL DISTRIBUTION WIDTH CV (test code = RDW) 15.2 % 11.5-14.5 H RED CELL DISTRIBUTION WIDTH SD (test code = RDW-SD) 50.2 fL 37.0-54.0 N PLATELET COUNT (test code = PLT) 135 x10 3/uL 150-400 L MEAN PLATELET VOLUME (test c ode = MPV) 11.3 fL 7.0-9.0 H NEUTROPHIL % (test code = NT%) 82.4 % 56.0-77.0 H IMMATURE GRANULOCYTE % (test code = IG%) 1.0 % 0.0-2.0 N LYMPHOCYTE % (test code = LY%) 6.5 % 14.0-32.0 L MONOCYTE % (test code = MO%) 9.5 % 4.8-9.0 H EOSINOPHIL % (test code = EO%) 0.4 % 0.3-3.7 N BASOPHIL % (test code = BA%) 0.2 % 0.0-2.0 N NUCLEATED RBC % (test code = NRBC%) 0.0 % 0-0 N NEUTROPHIL # (test code = NT#) 4.33 x10 3/uL 2.0-7.6 N IMMATURE GRANULOCYTE # (test code = IG#) 0.05 x10 3/uL 0.00-0.03 H LYMPHOCYTE # (test code = LY#) 0.34 x10 3/uL 1.0-3.8 L MONOCYTE # (test code = MO#) 0.50 x10 3/uL 0.1-0.8 N EOSINOPHIL # (test code = EO#) 0.02 x10 3/uL 0.0-0.2 N BASOPHIL # (test code = BA#) 0.01 x10 3/uL 0.0-0.2 N NUCLEATED RBC # (test code = NRBC#) 0.00 x10 3/uL 0.0-0.1 N MANUAL DIFF REQUIRED (test c ode = MDIFF) NO POC ARTERIAL BLOOD [id number] 03:20:00* Test Item Value Reference Range Interpretation Comme nts POC ARTERIAL BLOOD GAS PH (t est code = POCPHA) 7.438 7.35-7.45 N POC ARTERIAL BLOOD GAS PCO2 (test code = BIRVCN8C) 39.5 mmHg 35.0-45 N POC TCO2 ARTERIAL (test code = POCTCO2) 28.2 POC ARTERIAL BLOOD GAS PO2 ( test code = DMXGO1N) 93.2 mmHg 80-100.0 N POC HCO3 ARTERIAL (test code = MMVWGZ7O) 26.9 MMOL/L 22.0-26.0 H POC BASE EXCESS (test code = POCBEA) 2.5 MMOL/L -4.0-4.0 N POC O2 SATURATION (test code = POCO2S) 97.7 % 90-100 N ABG DELIVERY (test code = RACIEL) HFNC ABG TEMPERATURE (test code = TEMPA) 97.2 F ABG SITE (test code = SITEA) Art Line SHAYLA'S TEST (test code = ALLENS) Positive BASIC METABOLIC [id number] 03:20:00* Test Item Value Reference Range Interpretation Comme nts SODIUM (test code = NA/ABG) 147 mmol/L 134-147 N POTASSIUM (test code = K/ABG) 4.0 mmol/L 3.4-5.0 N CHLORIDE (test code = CL/ABG) 110 mmol/L 100-108 H CREATININE ABG (test code = CREAABG) 1.4 mg/dL 0.8-1.3 H POC IONIZED CALCIUM (test co de = POCCA) 1.16 MMOL/L 1.12-1.32 N POC GLUCOSE (test code = POCGLU) 147 MG/DL 70-110 H HEMOGLOBIN [id number] 03:20:00* Test Item Value Reference Range Interpretation Comme nts HEMOGLOBIN ABG (test code = HGB/ABG) 11.0 G/DL 12.5-16.9 L [id number] 03:20:00* Test Item Value Reference Range Interpretation Comme nts HEMATOCRIT (test code = HCT/ABG) 32 % 37.5-50.7 L POC LACTIC [id number] 03:20:00* Test Item Value Reference Range Interpretation Comme nts POC LACTIC ACID (test code = POCLAC) 0.4 mmol/l 0.9-1.7 L - XR CHEST 1 [id number] 00:00:00 [facility]EVIN [facility] : 1950 Sex: M FAX: Luci Wang [phone] M[place]: St: ADM FAX: Arnold RamirezAndrewStacy campbellzakiya Veloz y [phone] -- Name: TEVIN NYE [facility] : 1950 Age/S: 72/M [address] [place] [address] Unit #: [id number] Loc: [address] [place] [address] Phys: Evon Andrew Physic Acct: [id number] Dis Date: Status: ADM IN PHONE #: [phone] Exam Date: 03/10/2023513 FAX #: [phone] Reason: Cardiac Surgery Post Op EXAMS: CPT CODE: [id number] XR CHEST 1 V 06902 PROCEDURE INFORMATION: Exam: XR Chest Exam date [...] the right side. Heart/Mediastinum: Cardiac silhouette appears kjtu-uv-iypxadfrfr enlarged. Vasculature: Mild atherosclerotic calcification demonstrated within the aorta. Bones/joints: Sternotomy wires, hardware is demonstrated. Mild generalized bony degenerative changes. Soft tissues: Right neck sheath tip is positioned over the upper chest region. This study is limited by patient's body habitus. IMPRESSION: 1. Small to moderate bilateral pleural effusions. 2. Moderate pulmonary edema versus infiltrates, pneumonia. 3. Kcmh-ey-fpgzovwqci enlarged cardiac silhouette. at 0734 Reported andsigned by: David Espinal M.D. CC: Luci Villeda MD; Evon Andrew Technologist: RT Lelia(Karuna) Trnscrd Date/Time/By: 03/10/2023 (0734) : By: [email or web address] Orig Print D/T:S: 03/10/2023 (733) PAGE 1 Signed ReportGLUCOSE [id number] 19:50:00* Test Item Value Reference Range Interpretation Comme nts GLUCOSE BEDSIDE (test code = GLUBED) 173 MG/DL 70-110 H Performed by cer tified 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 [facility] BASIC METABOLIC [id number] 16:06:00* Test Item Value Reference Range Interpretation Comme nts SODIUM (test code = NA) 142 mEq/L 134-147 N POTASSIUM (test code = K) 4.4 mEq/L 3.4-5.0 N CHLORIDE (test code = CL) 109 mEq/L 100-108 H CARBON DIOXIDE (test code = CO2) 27 mEq/l 21-33 N ANION GAP (test code = GAP) 10 0-20 N GLUCOSE (test code = GLU) 228 mg/dL 70-110 H BLOOD UREA NITROGEN (test code = BUN) 61 mg/dL 7-18 H GLOMERULAR FILTRATION RATE (test code = GFR) 39.7 70-80 L The Glomerular Filtration Rate is a calculated parameterbased on serum Creatinine, patient age and sex. GFR valuesless than 60 mL/min/1.73 square meters are indicative ofChronic Kidney Disease. Values less than 15 mL/min/1.73square meters indicate Kidney failure. The calculation forGFR is based on the CKD-EPI (2020) calculation. This formulais race indifferent and is the recommended formula for GFRby the National Kidney Foundation for Adults.The GFR will not calculate if the sex is unknown or if thepatient's age is <18 years. CREATININE (test code = CREAT) 1.8 mg/dL 0.6-1.3 H CALCIUM (test code = CA) 8.7 mg/dL 8.0-10.5 N GLUCOSE [id number] 10:39:00* Test Item Value Reference Range Interpretation Comme nts GLUCOSE BEDSIDE (test code = GLUBED) 197 MG/DL 70-110 H Performed by cer tified 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 [facility] GLUCOSE [id number] 04:14:00* Test Item Value Reference Range Interpretation Comme nts GLUCOSE BEDSIDE (test code = GLUBED) 123 MG/DL 70-110 H Performed by cer tified 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 [facility] BASIC METABOLIC [id number] 02:38:00* Test Item Value Reference Range Interpretation Comme nts SODIUM (test code = NA) 144 mEq/L 134-147 N POTASSIUM (test code = K) 3.9 mEq/L 3.4-5.0 N CHLORIDE (test code = CL) 108 mEq/L 100-108 N CARBON DIOXIDE (test code = CO2) 30 mEq/l 21-33 N ANION GAP (test code = GAP) 10 0-20 N GLUCOSE (test code = GLU) 224 mg/dL 70-110 H BLOOD UREA NITROGEN (test code = BUN) 67 mg/dL 7-18 H GLOMERULAR FILTRATION RATE (test code = GFR) 37.3 70-80 L The Glomerular Filtration Rate is a calculated parameterbased on serum Creatinine, patient age and sex. GFR valuesless than 60 mL/min/1.73 square meters are indicative ofChronic Kidney Disease. Values less than 15 mL/min/1.73square meters indicate Kidney failure. The calculation forGFR is based on the CKD-EPI (2021) calculation. This formulais race indifferent and is the recommended formula for GFRby the National Kidney Foundation for Adults.The GFR will not calculate if the sex is unknown or if thepatient's age is <18 years. CREATININE (test code = CREAT) 1.9 mg/dL 0.6-1.3 H CALCIUM (test code = CA) 8.6 mg/dL 8.0-10.5 N [id number] 02:38:00* Test Item Value Reference Range Interpretation Comme nts MAGNESIUM (test code = MAG) 2.70 mg/dL 1.80-2.40 H CBC W/AUTO [id number] 02:35:00* Test Item Value Reference Range Interpretation Comme nts WHITE BLOOD CELL (test code = WBC) 5.6 x10 3/uL 4.5-11.0 N RED BLOOD CELL (test code = RBC) 3.50 x10 6/uL 4.00-5.60 L HEMOGLOBIN (test code = HGB) 10.5 g/dL 12.5-16.9 L HEMATOCRIT (test code = HCT) 31.8 % 37.5-50.7 L MEAN CELL VOLUME (test code = MCV) 90.9 fL 81.0-99.0 N MEAN CELL HGB (test code = MCH) 30.0 pg 27.0-33.0 N MEAN CELL HGB CONCETRATION (test code = MCHC) 33.0 g/dL 33.0-37.0 N RED CELL DISTRIBUTION WIDTH CV (test code = RDW) 15.7 % 11.5-14.5 H RED CELL DISTRIBUTION WIDTH SD (test code = RDW-SD) 52.2 fL 37.0-54.0 N PLATELET COUNT (test code = PLT) 119 x10 3/uL 150-400 L MEAN PLATELET VOLUME (test c ode = MPV) 11.3 fL 7.0-9.0 H NEUTROPHIL % (test code = NT%) 85.6 % 56.0-77.0 H IMMATURE GRANULOCYTE % (test code = IG%) 0.7 % 0.0-2.0 N LYMPHOCYTE % (test code = LY%) 4.6 % 14.0-32.0 L MONOCYTE % (test code = MO%) 9.1 % 4.8-9.0 H EOSINOPHIL % (test code = EO%) 0.0 % 0.3-3.7 L BASOPHIL % (test code = BA%) 0.0 % 0.0-2.0 N NUCLEATED RBC % (test code = NRBC%) 0.0 % 0-0 N NEUTROPHIL # (test code = NT#) 4.81 x10 3/uL 2.0-7.6 N IMMATURE GRANULOCYTE # (test code = IG#) 0.04 x10 3/uL 0.00-0.03 H LYMPHOCYTE # (test code = LY#) 0.26 x10 3/uL 1.0-3.8 L MONOCYTE # (test code = MO#) 0.51 x10 3/uL 0.1-0.8 N EOSINOPHIL # (test code = EO#) 0.00 x10 3/uL 0.0-0.2 N BASOPHIL # (test code = BA#) 0.00 x10 3/uL 0.0-0.2 N NUCLEATED RBC # (test code = NRBC#) 0.00 x10 3/uL 0.0-0.1 N MANUAL DIFF REQUIRED (test c ode = MDIFF) NO POC ARTERIAL BLOOD [id number] 02:05:00* Test Item Value Reference Range Interpretation Comme nts POC ARTERIAL BLOOD GAS PH (t est code = POCPHA) 7.455 7.35-7.45 H POC ARTERIAL BLOOD GAS PCO2 (test code = [id number]) 39.2 mmHg 35.0-45 N POC TCO2 ARTERIAL (test code = POCTCO2) 28.8 POC ARTERIAL BLOOD GAS PO2 ( test code = IHNNI6C) 81.3 mmHg 80-100.0 N POC HCO3 ARTERIAL (test code = [id number]) 27.6 MMOL/L 22.0-26.0 H POC BASE EXCESS (test code = POCBEA) 3.7 MMOL/L -4.0-4.0 N POC O2 SATURATION (test code = POCO2S) 96.6 % 90-100 N ABG DELIVERY (test code = RACIEL) HFNC ABG TEMPERATURE (test code = TEMPA) 98.3 F ABG SITE (test code = SITEA) Art Line SHAYLA'S TEST (test code = ALLENS) N/A BASIC METABOLIC [id number] 02:05:00* Test Item Value Reference Range Interpretation Comme nts SODIUM (test code = NA/ABG) 143 mmol/L 134-147 N POTASSIUM (test code = K/ABG) 3.9 mmol/L 3.4-5.0 N CHLORIDE (test code = CL/ABG) 106 mmol/L 100-108 N CREATININE ABG (test code = CREAABG) 1.9 mg/dL 0.8-1.3 H POC IONIZED CALCIUM (test co de = POCCA) 1.17 MMOL/L 1.12-1.32 N POC GLUCOSE (test code = POCGLU) 212 MG/DL 70-110 H HEMOGLOBIN [id number] 02:05:00* Test Item Value Reference Range Interpretation Comme nts HEMOGLOBIN ABG (test code = HGB/ABG) 11.1 G/DL 12.5-16.9 L [id number] 02:05:00* Test Item Value Reference Range Interpretation Comme nts HEMATOCRIT (test code = HCT/ABG) 33 % 37.5-50.7 L POC LACTIC [id number] 02:05:00* Test Item Value Reference Range Interpretation Comme nts POC LACTIC ACID (test code = POCLAC) 0.6 mmol/l 0.9-1.7 L GLUCOSE [id number] 01:25:00* Test Item Value Reference Range Interpretation [facility]me [facility] GLU[facility] BEDSIDE (test code = GLUBED) 244 MG/DL 70-110 H Performed by cer tified 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 [facility] GLUCOSE [id number] 00:45:00* Test Item Value Reference Range Interpretation Com[facility] GLUCOSE BEDSIDE (test code = GLUBED) 252 MG/DL 70-110 H Performed by cer tified 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 [facility] - XR CHEST 1 [id number] 00:00:00 [facility] 1950 Sex: M FAX: Luci Wang [phone] [place]: St: [facility] FAX: Evon Garcia Phy [phone] -- Name: TEVIN NYE [facility] : 1950 Age/S: 72/M [address] [place] [address] Blvd Unit #: [id number] Loc: TERESA Valdovinos [address] Phys: Evon Andrew Acct: [id number] Dis Date: Status: ADM IN PHONE #:[phone] Exam Date: 03/09/2023801 FAX #: [phone] Reason: Cardiac Surgery Post Op EXAMS:CPT CODE: [id number] XR CHEST 1 V 83694 PROCEDURE INFORMATION: Exam: XR Chest Exam date and time: 03/09/2023 6:24 AM Age: 72 years old Clinical indication: Other: Cardiac surgery post op TECHNIQUE: Imaging protocol: Radiologic exam of the chest. Views: 1 view. COMPARISON: CR XR CHEST 1V 03/08/2023 6:12AM FINDINGS: Tubes, catheters and devices: Vascular sheath in the [...] Luci Villeda MD; Evon Andrew Technologist: RT Shae(Karuna) Trnscrd Date/Time/By: 03/09/2023 (816) : By: BuckAB53 Orig Print D/T: S: 03/09/2023 (18) PAGE 1 Signed ReportGLUCOSE [id number] 23:42:00* Test Item Value Reference Range Interpretation Comme nts GLUCOSE BEDSIDE (test code = GLUBED) 215 MG/DL 70-110 H Performed by cer yun 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 [facility] GLUCOSE [id number] 21:41:00* Test Item Value Reference Range Interpretation Comme nts GLUCOSE BEDSIDE (test code = GLUBED) 193 MG/DL 70-110 H Performed by cer tified 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 [facility] GLUCOSE [id number] 19:45:00* Test Item Value Reference Range Interpretation Comme nts GLUCOSE BEDSIDE (test code = GLUBED) 234 MG/DL 70-110 H Performed by cer tified 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 [facility] BASIC METABOLIC [id number] 18:44:00* Test Item Value Reference Range Interpretation Comme nts SODIUM (test code = NA) 143 mEq/L 134-147 N POTASSIUM (test code = K) 4.2 mEq/L 3.4-5.0 N CHLORIDE (test code = CL) 109 mEq/L 100-108 H CARBON DIOXIDE (test code = CO2) 29 mEq/l 21-33 N ANION GAP (test code = GAP) 9 0-20 N GLUCOSE (test code = GLU) 243 mg/dL 70-110 H BLOOD UREA NITROGEN (test code = BUN) 67 mg/dL 7-18 H GLOMERULAR FILTRATION RATE (test code = GFR) 35.0 70-80 L The Glomerular Filtration Rate is a calculated parameterbased on serum Creatinine, patient age and sex. GFR valuesless than 60 mL/min/1.73 square meters are indicative ofChronic Kidney Disease. Values less than 15 mL/min/1.73square meters indicate Kidney failure. The calculation forGFR is based on the CKD-EPI (2020) calculation. This formulais race indifferent and is the recommended formula for GFRby the National Kidney Foundation for Adults.The GFR will not calculate if the sex is unknown or if thepatient's age is <18 years. CREATININE (test code = CREAT) 2.0 mg/dL 0.6-1.3 H CALCIUM (test code = CA) 8.2 mg/dL 8.0-10.5 N GLUCOSE [id number] 15:57:00* Test Item Value Reference Range Interpretation Comme nts GLUCOSE BEDSIDE (test code = GLUBED) 218 MG/DL 70-110 H Performed by cer tified 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 [facility] GLUCOSE [id number] 10:10:00* Test Item Value Reference Range Interpretation Comme nts GLUCOSE BEDSIDE (test code = GLUBED) 229 MG/DL 70-110 H Performed by cer tified 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 [facility] GLUCOSE [id number] 08:16:00* Test Item Value Reference Range Interpretation Comme nts GLUCOSE BEDSIDE (test code = GLUBED) 136 MG/DL 70-110 H Performed by cer tified 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 [facility] GLUCOSE [id number] 06:37:00* Test Item Value Reference Range Interpretation Comme nts GLUCOSE BEDSIDE (test code = GLUBED) 132 MG/DL 70-110 H Performed by cer tified 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 [facility] BASIC METABOLIC [id number] 02:36:00* Test Item Value Reference Range Interpretation Comme nts SODIUM (test code = NA) 144 mEq/L 134-147 N POTASSIUM (test code = K) 3.9 mEq/L 3.4-5.0 N CHLORIDE (test code = CL) 110 mEq/L 100-108 H CARBON DIOXIDE (test code = CO2) 31 mEq/l 21-33 N ANION GAP (test code = GAP) 7 0-20 N GLUCOSE (test code = GLU) 140 mg/dL 70-110 H BLOOD UREA NITROGEN (test code = BUN) 74 mg/dL 7-18 H GLOMERULAR FILTRATION RATE (test code = GFR) 26.8 70-80 L The Glomerular Filtration Rate is a calculated parameterbased on serum Creatinine, patient age and sex. GFR valuesless than 60 mL/min/1.73 square meters are indicative ofChronic Kidney Disease. Values less than 15 mL/min/1.73square meters indicate Kidney failure. The calculation forGFR is based on the CKD-EPI (202) calculation. This formulais race indifferent and is the recommended formula for GFRby the National Kidney Foundation for Adults.The GFR will not calculate if the sex is unknown or if thepatient's age is <18 years. CREATININE (test code = CREAT) 2.5 mg/dL 0.6-1.3 H CALCIUM (test code = CA) 7.9 mg/dL 8.0-10.5 L [id number] 02:36:00* Test Item Value Reference Range Interpretation Comme nts MAGNESIUM (test code = MAG) 2.83 mg/dL 1.80-2.40 H CBC W/AUTO [id number] 02:24:00* Test Item Value Reference Range Interpretation Comme nts WHITE BLOOD CELL (test code = WBC) 6.2 x10 3/uL 4.5-11.0 N RED BLOOD CELL (test code = RBC) 3.14 x10 6/uL 4.00-5.60 L HEMOGLOBIN (test code = HGB) 9.4 g/dL 12.5-16.9 L HEMATOCRIT (test code = HCT) 29.0 % 37.5-50.7 L MEAN CELL VOLUME (test code = MCV) 92.4 fL 81.0-99.0 N MEAN CELL HGB (test code = MCH) 29.9 pg 27.0-33.0 N MEAN CELL HGB CONCETRATION (test code = MCHC) 32.4 g/dL 33.0-37.0 L RED CELL DISTRIBUTION WIDTH CV (test code = RDW) 16.5 % 11.5-14.5 H RED CELL DISTRIBUTION WIDTH SD (test code = RDW-SD) 56.0 fL 37.0-54.0 H PLATELET COUNT (test code = PLT) 100 x10 3/uL 150-400 L MEAN PLATELET VOLUME (test c ode = MPV) 11.1 fL 7.0-9.0 H NEUTROPHIL % (test code = NT%) 87.0 % 56.0-77.0 H IMMATURE GRANULOCYTE % (test code = IG%) 0.3 % 0.0-2.0 N LYMPHOCYTE % (test code = LY%) 3.9 % 14.0-32.0 L MONOCYTE % (test code = MO%) 8.6 % 4.8-9.0 N EOSINOPHIL % (test code = EO%) 0.0 % 0.3-3.7 L BASOPHIL % (test code = BA%) 0.2 % 0.0-2.0 N NUCLEATED RBC % (test code = NRBC%) 0.0 % 0-0 N NEUTROPHIL # (test code = NT#) 5.39 x10 3/uL 2.0-7.6 N IMMATURE GRANULOCYTE # (test code = IG#) 0.02 x10 3/uL 0.00-0.03 N LYMPHOCYTE # (test code = LY#) 0.24 x10 3/uL 1.0-3.8 L MONOCYTE # (test code = MO#) 0.53 x10 3/uL 0.1-0.8 N EOSINOPHIL # (test code = EO#) 0.00 x10 3/uL 0.0-0.2 N BASOPHIL # (test code = BA#) 0.01 x10 3/uL 0.0-0.2 N NUCLEATED RBC # (test code = NRBC#) 0.00 x10 3/uL 0.0-0.1 N MANUAL DIFF REQUIRED (test c ode = MDIFF) NO GLUCOSE [id number] 02:23:00* Test Item Value Reference Range Interpretation Comme nts GLUCOSE BEDSIDE (test code = GLUBED) 121 MG/DL 70-110 H Performed by cer yun 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 [facility] POC ARTERIAL BLOOD [id number] 02:22:00* Test Item Value Reference Range Interpretation Comme nts POC ARTERIAL BLOOD GAS PH (t est code = POCPHA) 7.352 7.35-7.45 N POC ARTERIAL BLOOD GAS PCO2 (test code = FYIVRG8O) 52.2 mmHg 35.0-45 HH POC TCO2 ARTERIAL (test code = POCTCO2) 30.7 POC ARTERIAL BLOOD GAS PO2 ( test code = XFMMC7H) 156.1 mmHg 80-100.0 H POC HCO3 ARTERIAL (test code = GGHTJV7X) 29.0 MMOL/L 22.0-26.0 HH POC BASE EXCESS (test code = POCBEA) 3.4 MMOL/L -4.0-4.0 N POC O2 SATURATION (test code = POCO2S) 99.3 % 90-100 N ABG DELIVERY (test code = RACIEL) HFNC ABG TEMPERATURE (test code = TEMPA) 98.2 F ABG SITE (test code = SITEA) Art Line SHAYLA'S TEST (test code = ALLENS) N/A BASIC METABOLIC [id number] 02:22:00* Test Item Value Reference Range Interpretation Comme nts SODIUM (test code = NA/ABG) 145 mmol/L 134-147 N POTASSIUM (test code = K/ABG) 3.9 mmol/L 3.4-5.0 N CHLORIDE (test code = CL/ABG) 107 mmol/L 100-108 N CREATININE ABG (test code = CREAABG) 2.4 mg/dL 0.8-1.3 H POC IONIZED CALCIUM (test co de = POCCA) 1.22 MMOL/L 1.12-1.32 N POC GLUCOSE (test code = POCGLU) 102 MG/DL 70-110 N HEMOGLOBIN [id number] 02:22:00* Test Item Value Reference Range Interpretation Comme nts HEMOGLOBIN ABG (test code = HGB/ABG) 9.5 G/DL 12.5-16.9 L [id number] 02:22:00* Test Item Value Reference Range Interpretation Comme nts HEMATOCRIT (test code = HCT/ABG) 28 % 37.5-50.7 L POC LACTIC [id number] 02:22:00* Test Item Value Reference Range Interpretation Comme nts POC LACTIC ACID (test code = POCLAC) < 0.3 mmol/l 0.9-1.7 L GLUCOSE [id number] 00:53:00* Test Item Value Reference Range Interpretation Comme [facility] GLU[facility]SE BEDSIDE (test code = GLUBED) 126 MG/DL 70-110 H Performed by cer tified 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 [facility] - XR CHEST 1 [id number] 00:00:00 [facility] 1950 Sex: M FAX: Luci Wang [phone] [place]: St: [facility] FAX: Evon Garcia Phy [phone] -- Name: TEVIN NYE [facility] : 1950 Age/S: 72/M [address] [place] [address] Unit #: [id number] Loc: [place] [address] Phys: Evon Andrew Acct: [id number] Dis Date: Status: ADM IN PHONE #: [phone] Exam Date: 03/08/2023818 FAX #: [phone] Reason: Cardiac Surgery Post Op EXAMS: CPT CODE: [id number] XR CHEST 1 V 32077 PROCEDURE INFORMATION: Exam: XR Chest Exam date and time: 03/08/2023 6:12 AM Age: 72 years old Clinical indication: Other: Cardiac surgery post op TECHNIQUE: Imaging protocol: Radiologic exam of the chest. Views: 1 view. COMPARISON: CR XR CHEST 1V 03/07/2023 5:09AM FINDINGS: Tubes, catheters and devices: Interval removal of mediastinal/chest tube. Unchanged right neck vascular sheath. Lungs: Bilateral lung opacities have not significantly changed. Pleural spaces: No pneumothorax. Likely right pleural effusion. Heart/Mediastinum: The heart size is stable. 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 Bones/joints: Stable. IMPRESSION: Unchanged appearance of the lungs. at 0835 Reported and signed by: Ezekiel Esteves M.D. CC: Luci Villeda MD; Evon Andrew Technologist: RT Shae(R); RT Bhupinder(R) Trnscrd Date/Time/By: 03/08/2023 (0835) : By: BuckAB53 PAGE 1 Signed ReportGLUCOSE [id number] 23:01:00* Test Item Value Reference Range Interpretation Comme nts GLUCOSE BEDSIDE (test code = GLUBED) 128 MG/DL 70-110 H Performed by wendy malcolm 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 [facility] GLUCOSE [id number] 21:38:00* Test Item Value Reference Range Interpretation Comme nts GLUCOSE BEDSIDE (test code = GLUBED) 132 MG/DL 70-110 H Performed by wendy malcolm 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 [facility] GLUCOSE [id number] 20:10:00* Test Item Value Reference Range Interpretation Comme nts GLUCOSE BEDSIDE (test code = GLUBED) 94 MG/DL 70-110 N Performed by cer tified 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 [facility] BASIC METABOLIC [id number] 18:01:00* Test Item Value Reference Range Interpretation Comme nts SODIUM (test code = NA) 144 mEq/L 134-147 N POTASSIUM (test code = K) 4.0 mEq/L 3.4-5.0 N CHLORIDE (test code = CL) 109 mEq/L 100-108 H CARBON DIOXIDE (test code = CO2) 28 mEq/l 21-33 N ANION GAP (test code = GAP) 11 0-20 N GLUCOSE (test code = GLU) 151 mg/dL 70-110 H BLOOD UREA NITROGEN (test code = BUN) 68 mg/dL 7-18 H GLOMERULAR FILTRATION RATE (test code = GFR) 24.4 70-80 L The Glomerular Filtration Rate is a calculated parameterbased on serum Creatinine, patient age and sex. GFR valuesless than 60 mL/min/1.73 square meters are indicative ofChronic Kidney Disease. Values less than 15 mL/min/1.73square meters indicate Kidney failure. The calculation forGFR is based on the CKD-EPI (202) calculation. This formulais race indifferent and is the recommended formula for GFRby the National Kidney Foundation for Adults.The GFR will not calculate if the sex is unknown or if thepatient's age is <18 years. CREATININE (test code = CREAT) 2.7 mg/dL 0.6-1.3 H CALCIUM (test code = CA) 8.2 mg/dL 8.0-10.5 N GLUCOSE [id number] 16:10:00* Test Item Value Reference Range Interpretation Comme nts GLUCOSE BEDSIDE (test code = GLUBED) 189 MG/DL 70-110 H Performed by cer tified 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 [facility] GLUCOSE [id number] 12:07:00* Test Item Value Reference Range Interpretation Comme nts GLUCOSE BEDSIDE (test code = GLUBED) 202 MG/DL 70-110 H Performed by cer tified 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 [facility] BASIC METABOLIC [id number] 09:31:00* Test Item Value Reference Range Interpretation Comme nts SODIUM (test code = NA) 144 mEq/L 134-147 N POTASSIUM (test code = K) 4.2 mEq/L 3.4-5.0 N CHLORIDE (test code = CL) 108 mEq/L 100-108 N CARBON DIOXIDE (test code = CO2) 25 mEq/l 21-33 N ANION GAP (test code = GAP) 15 0-20 N GLUCOSE (test code = GLU) 214 mg/dL 70-110 H BLOOD UREA NITROGEN (test code = BUN) 66 mg/dL 7-18 H GLOMERULAR FILTRATION RATE (test code = GFR) 23.4 70-80 L The Glomerular Filtration Rate is a calculated parameterbased on serum Creatinine, patient age and sex. GFR valuesless than 60 mL/min/1.73 square meters are indicative ofChronic Kidney Disease. Values less than 15 mL/min/1.73square meters indicate Kidney failure. The calculation forGFR is based on the CKD-EPI (2020) calculation. This formulais race indifferent and is the recommended formula for GFRby the National Kidney Foundation for Adults.The GFR will not calculate if the sex is unknown or if thepatient's age is <18 years. CREATININE (test code = CREAT) 2.8 mg/dL 0.6-1.3 H CALCIUM (test code = CA) 8.3 mg/dL 8.0-10.5 N GLUCOSE [id number] 08:19:00* Test Item Value Reference Range Interpretation Comme nts GLUCOSE BEDSIDE (test code = GLUBED) 183 MG/DL 70-110 H Performed by cer tified 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 [facility] BASIC METABOLIC [id number] 03:33:00* Test Item Value Reference Range Interpretation Comme nts SODIUM (test code = NA) 144 mEq/L 134-147 N POTASSIUM (test code = K) 4.3 mEq/L 3.4-5.0 N CHLORIDE (test code = CL) 110 mEq/L 100-108 H CARBON DIOXIDE (test code = CO2) 28 mEq/l 21-33 N ANION GAP (test code = GAP) 11 0-20 N GLUCOSE (test code = GLU) 157 mg/dL 70-110 H BLOOD UREA NITROGEN (test code = BUN) 56 mg/dL 7-18 H GLOMERULAR FILTRATION RATE (test code = GFR) 22.4 70-80 L The Glomerular Filtration Rate is a calculated parameterbased on serum Creatinine, patient age and sex. GFR valuesless than 60 mL/min/1.73 square meters are indicative ofChronic Kidney Disease. Values less than 15 mL/min/1.73square meters indicate Kidney failure. The calculation forGFR is based on the CKD-EPI (202) calculation. This formulais race indifferent and is the recommended formula for GFRby the National Kidney Foundation for Adults.The GFR will not calculate if the sex is unknown or if thepatient's age is <18 years. CREATININE (test code = CREAT) 2.9 mg/dL 0.6-1.3 H CALCIUM (test code = CA) 8.6 mg/dL 8.0-10.5 N COMMENTS: POD #1HEPATIC FUNCTION [id number] 03:33:00* Test Item Value Reference Range Interpretation Comme nts TOTAL PROTEIN (test code = PROT) 5.7 g/dL 6.4-8.2 L ALBUMIN (test code = ALB) 3.40 g/dL 3.4-5.0 N BILIRUBIN TOTAL (test code = BILT) 0.40 mg/dL 0.0-1.0 BILIRUBIN DIRECT (test code = BILD) 0.20 MG/DL 0.0-0.30 N BILIRUBIN INDIRECT (test cod e = BILIND) 0.20 MG/DL SGOT/AST (test code = AST) 26 IUnit/L 15-37 N SGPT/ALT (test code = ALT) 17 IUnit/L 30-65 L ALKALINE PHOSPHATASE TOTAL ( test code = ALKP) 41 IUnit/L 20-125 N COMMENTS: POD #[id number] 03:33:00* Test Item Value Reference Range Interpretation Comme nts MAGNESIUM (test code = MAG) 2.71 mg/dL 1.80-2.40 H COMMENTS: POD #1CBC W/AUTO [id number] 03:29:00* Test Item Value Reference Range Interpretation Comme nts WHITE BLOOD CELL (test code = WBC) 7.8 x10 3/uL 4.5-11.0 N RED BLOOD CELL (test code = RBC) 3.42 x10 6/uL 4.00-5.60 L HEMOGLOBIN (test code = HGB) 10.1 g/dL 12.5-16.9 L HEMATOCRIT (test code = HCT) 31.4 % 37.5-50.7 L MEAN CELL VOLUME (test code = MCV) 91.8 fL 81.0-99.0 N MEAN CELL HGB (test code = MCH) 29.5 pg 27.0-33.0 N MEAN CELL HGB CONCETRATION (test code = MCHC) 32.2 g/dL 33.0-37.0 L RED CELL DISTRIBUTION WIDTH CV (test code = RDW) 17.1 % 11.5-14.5 H RED CELL DISTRIBUTION WIDTH SD (test code = RDW-SD) 57.5 fL 37.0-54.0 H PLATELET COUNT (test code = PLT) 103 x10 3/uL 150-400 L MEAN PLATELET VOLUME (test c ode = MPV) 10.8 fL 7.0-9.0 H NEUTROPHIL % (test code = NT%) 89.8 % 56.0-77.0 H IMMATURE GRANULOCYTE % (test code = IG%) 0.8 % 0.0-2.0 N LYMPHOCYTE % (test code = LY%) 2.7 % 14.0-32.0 L MONOCYTE % (test code = MO%) 6.7 % 4.8-9.0 N EOSINOPHIL % (test code = EO%) 0.0 % 0.3-3.7 L BASOPHIL % (test code = BA%) 0.0 % 0.0-2.0 N NUCLEATED RBC % (test code = NRBC%) 0.0 % 0-0 N NEUTROPHIL # (test code = NT#) 6.96 x10 3/uL 2.0-7.6 N IMMATURE GRANULOCYTE # (test code = IG#) 0.06 x10 3/uL 0.00-0.03 H LYMPHOCYTE # (test code = LY#) 0.21 x10 3/uL 1.0-3.8 L MONOCYTE # (test code = MO#) 0.52 x10 3/uL 0.1-0.8 N EOSINOPHIL # (test code = EO#) 0.00 x10 3/uL 0.0-0.2 N BASOPHIL # (test code = BA#) 0.00 x10 3/uL 0.0-0.2 N NUCLEATED RBC # (test code = NRBC#) 0.00 x10 3/uL 0.0-0.1 N MANUAL DIFF REQUIRED (test c ode = MDIFF) NO POC ARTERIAL BLOOD [id number] 02:41:00* Test Item Value Reference Range Interpretation Comme nts POC ARTERIAL BLOOD GAS PH (t est code = POCPHA) 7.361 7.35-7.45 N POC ARTERIAL BLOOD GAS PCO2 (test code = DTZTUH2E) 49.1 mmHg 35.0-45 H POC TCO2 ARTERIAL (test code = POCTCO2) 29.3 POC ARTERIAL BLOOD GAS PO2 ( test code = WTPFT6N) 79.1 mmHg 80-100.0 L POC HCO3 ARTERIAL (test code = KIFWUB5I) 27.8 MMOL/L 22.0-26.0 H POC BASE EXCESS (test code = POCBEA) 2.3 MMOL/L -4.0-4.0 N POC O2 SATURATION (test code = POCO2S) 94.9 % 90-100 N ABG DELIVERY (test code = RACIEL) HFNC ABG SITE (test code = SITEA) Art Line SHAYLA'S TEST (test code = ALLENS) Positive BASIC METABOLIC [id number] 02:41:00* Test Item Value Reference Range Interpretation Comme nts SODIUM (test code = NA/ABG) 146 mmol/L 134-147 N POTASSIUM (test code = K/ABG) 4.4 mmol/L 3.4-5.0 N CHLORIDE (test code = CL/ABG) 109 mmol/L 100-108 H CREATININE ABG (test code = CREAABG) 3.3 mg/dL 0.8-1.3 H POC IONIZED CALCIUM (test co de = POCCA) 1.21 MMOL/L 1.12-1.32 N POC GLUCOSE (test code = POCGLU) 128 MG/DL 70-110 H HEMOGLOBIN [id number] 02:41:00* Test Item Value Reference Range Interpretation Comme nts HEMOGLOBIN ABG (test code = HGB/ABG) 10.7 G/DL 12.5-16.9 L [id number] 02:41:00* Test Item Value Reference Range Interpretation Comme nts HEMATOCRIT (test code = HCT/ABG) 32 % 37.5-50.7 L GLUCOSE [id number] 01:24:00* Test Item Value Reference Range Interpretation Comme nts GLUCOSE BEDSIDE (test code = GLUBED) 134 MG/DL 70-110 H Performed by wendy malcolm 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 [facility] - XR CHEST 1 [id number] 00:00:00 [facility] 1950 Sex: M FAX: Luci Wang [phone] [place]: St: ADM FAX: Evon Garcia [facility] [phone] -- Name: TEVIN NYE [facility] : 1950 Age/S: 72/M [address] [place] [address] Unit #: [id number] Loc: G.[address] [place] [address] Phys: Evon Andrew Physic Acct: [id number] Dis Date: Status: ADM IN PHONE #: [phone] Exam Date: 03/07/2023510 FAX #: [phone] Reason: Cardiac Surgery Post Op EXAMS: CPT CODE: [id number] XR CHEST 1 V 31857 PROCEDURE INFORMATION: Exam: XR Chest Exam date and time: 03/07/2023 5:09 AM Age: 72 years old Clinical indication: Other: Cardiac surgery post op TECHNIQUE: Imaging protocol: Radiologic exam of the chest. Views: 1 view. COMPARISON: 1. CR XR CHEST 1V 03/06/2023 5:07 AM 2. CR XR CHEST 1V 03/05/2023 4:59 AM FINDINGS: Limitations: Suboptimal positioning with portions of the lung bases beyond the field of view. Tubes, catheters and devices: [place] catheter sheath in place. Left thoracostomy drain in place. Lungs: Indistinct interstitial lines bilateral. Indistinct basilar opacities asymmetric on the right. The right hemidiaphragm is now obscured. The left rem ains partially visible. Pleural spaces: Small left pneumothorax with separation at the apex less than 1 cm, without significant change. The costophrenic angles are indistinct. Heart/Mediastinum: The cardiomediastinal silhouette is stable. Bones/joints: Sternotomy wires are intact. IMPRESSION: 1. Increased interstitial opacities compatible with edema. 2. Increased right pleural effusion with associ ated basilar atelectasis versus airspace disease. 3. Stable small volume left pneumothorax with thoracostomy tube in place. Stable left basilar pleuroparenchymal changes. at 0758 Reported and signed by: Erlin Brown M.D. CC: Luci Villeda MD; Evon Andrew Technologist: SHONNA Rowell) Trndrissrd Date/Time/By: 03/07/2023 (0758) : By: Wilbert Orig Print D/T: S: 03/07/2023 (0758) PAGE 1 Signed ReportGLUCOSE [id number] 23:17:00* Test Item Value Reference Range Interpretation Comme [facility] GLU[facility] BEDSIDE (test code = GLUBED) 181 MG/DL 70-110 H Performed by wendy malcolm 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 [facility] POC ARTERIAL BLOOD [id number] 21:10:00* Test Item Value Reference Range Interpretation Comme [facility] POC ARTERIAL BLOOD GAS PH (t est code = POCPHA) 7.385 7.35-7.45 N POC ARTERIAL BLOOD GAS PCO2 (test code = UNHEOU8I) 44.2 mmHg 35.0-45 N POC TCO2 ARTERIAL (test code = POCTCO2) 27.7 POC ARTERIAL BLOOD GAS PO2 ( test code = GIIAV6X) 75.5 mmHg 80-100.0 L POC HCO3 ARTERIAL (test code = LWQWKR2W) 26.4 MMOL/L 22.0-26.0 H POC BASE EXCESS (test code = POCBEA) 1.4 MMOL/L -4.0-4.0 N POC O2 SATURATION (test code = POCO2S) 94.5 % 90-100 N ABG DELIVERY (test code = RACIEL) Cannula ABG TEMPERATURE (test code = TEMPA) 99 F ABG SITE (test code = SITEA) Art Line SHAYLA'S TEST (test code = ALLENS) Positive BASIC METABOLIC [id number] 21:10:00* Test Item Value Reference Range Interpretation Comme nts SODIUM (test code = NA/ABG) 145 mmol/L 134-147 N POTASSIUM (test code = K/ABG) 4.6 mmol/L 3.4-5.0 N CHLORIDE (test code = CL/ABG) 108 mmol/L 100-108 N CREATININE ABG (test code = CREAABG) 3.8 mg/dL 0.8-1.3 H POC IONIZED CALCIUM (test co de = POCCA) 1.18 MMOL/L 1.12-1.32 N POC GLUCOSE (test code = POCGLU) 213 MG/DL 70-110 H HEMOGLOBIN [id number] 21:10:00* Test Item Value Reference Range Interpretation Comme nts HEMOGLOBIN ABG (test code = HGB/ABG) 10.5 G/DL 12.5-16.9 L [id number] 21:10:00* Test Item Value Reference Range Interpretation Comme nts HEMATOCRIT (test code = HCT/ABG) 31 % 37.5-50.7 L BASIC METABOLIC [id number] 20:32:00* Test Item Value Reference Range Interpretation Comme nts SODIUM (test code = NA) 145 mEq/L 134-147 N POTASSIUM (test code = K) 4.4 mEq/L 3.4-5.0 N CHLORIDE (test code = CL) 110 mEq/L 100-108 H CARBON DIOXIDE (test code = CO2) 27 mEq/l 21-33 N ANION GAP (test code = GAP) 13 0-20 N GLUCOSE (test code = GLU) 231 mg/dL 70-110 H BLOOD UREA NITROGEN (test code = BUN) 58 mg/dL 7-18 H GLOMERULAR FILTRATION RATE (test code = GFR) 21.5 70-80 L The Glomerular Filtration Rate is a calculated parameterbased on serum Creatinine, patient age and sex. GFR valuesless than 60 mL/min/1.73 square meters are indicative ofChronic Kidney Disease. Values less than 15 mL/min/1.73square meters indicate Kidney failure. The calculation forGFR is based on the CKD-EPI (202) calculation. This formulais race indifferent and is the recommended formula for GFRby the National Kidney Foundation for Adults.The GFR will not calculate if the sex is unknown or if thepatient's age is <18 years. CREATININE (test code = CREAT) 3.0 mg/dL 0.6-1.3 H CALCIUM (test code = CA) 8.4 mg/dL 8.0-10.5 N [id number] 20:32:00* Test Item Value Reference Range Interpretation Comme nts MAGNESIUM (test code = MAG) 2.53 mg/dL 1.80-2.40 H CBC W/AUTO [id number] 16:47:00* Test Item Value Reference Range Interpretation Comme nts WHITE BLOOD CELL (test code = WBC) 7.7 x10 3/uL 4.5-11.0 RED BLOOD CELL (test code = RBC) 3.30 x10 6/uL 4.00-5.60 L HEMOGLOBIN (test code = HGB) 10.1 g/dL 12.5-16.9 L HEMATOCRIT (test code = HCT) 30.3 % 37.5-50.7 L MEAN CELL VOLUME (test code = MCV) 91.8 fL 81.0-99.0 MEAN CELL HGB (test code = MCH) 30.6 pg 27.0-33.0 N MEAN CELL HGB CONCETRATION (test code = MCHC) 33.3 g/dL 33.0-37.0 N RED CELL DISTRIBUTION WIDTH CV (test code = RDW) 17.2 % 11.5-14.5 H RED CELL DISTRIBUTION WIDTH SD (test code = RDW-SD) 58.3 fL 37.0-54.0 H PLATELET COUNT (test code = PLT) 97 x10 3/uL 150-400 L MEAN PLATELET VOLUME (test c ode = MPV) 11.1 fL 7.0-9.0 H NEUTROPHIL % (test code = NT%) 91.1 % 56.0-77.0 H IMMATURE GRANULOCYTE % (test code = IG%) 0.9 % 0.0-2.0 N LYMPHOCYTE % (test code = LY%) 2.7 % 14.0-32.0 L MONOCYTE % (test code = MO%) 5.2 % 4.8-9.0 N EOSINOPHIL % (test code = EO%) 0.0 % 0.3-3.7 L BASOPHIL % (test code = BA%) 0.1 % 0.0-2.0 N NUCLEATED RBC % (test code = NRBC%) 0.0 % 0-0 N NEUTROPHIL # (test code = NT#) 7.00 x10 3/uL 2.0-7.6 N IMMATURE GRANULOCYTE # (test code = IG#) 0.07 x10 3/uL 0.00-0.03 H LYMPHOCYTE # (test code = LY#) 0.21 x10 3/uL 1.0-3.8 L MONOCYTE # (test code = MO#) 0.40 x10 3/uL 0.1-0.8 N EOSINOPHIL # (test code = EO#) 0.00 x10 3/uL 0.0-0.2 N BASOPHIL # (test code = BA#) 0.01 x10 3/uL 0.0-0.2 N NUCLEATED RBC # (test code = NRBC#) 0.00 x10 3/uL 0.0-0.1 N MANUAL DIFF REQUIRED (test c ode = MDIFF) NO POC ARTERIAL BLOOD [id number] 16:14:00* Test Item Value Reference Range Interpretation Comme nts POC ARTERIAL BLOOD GAS PH (t est code = POCPHA) 7.331 7.35-7.45 L POC ARTERIAL BLOOD GAS PCO2 (test code = NNCQHE5F) 51.3 mmHg 35.0-45 HH POC TCO2 ARTERIAL (test code = POCTCO2) 28.5 POC ARTERIAL BLOOD GAS PO2 ( test code = XIVSJ6P) 112.0 mmHg 80-100.0 H POC HCO3 ARTERIAL (test code = IQGMQI1R) 27.0 MMOL/L 22.0-26.0 H POC BASE EXCESS (test code = POCBEA) 1.2 MMOL/L -4.0-4.0 N POC O2 SATURATION (test code = POCO2S) 97.8 % 90-100 N ABG DELIVERY (test code = RACIEL) Cannula ABG TEMPERATURE (test code = TEMPA) 99.3 F ABG SITE (test code = SITEA) Art Line BASIC METABOLIC [id number] 16:14:00* Test Item Value Reference Range Interpretation Comme nts SODIUM (test code = NA/ABG) 144 mmol/L 134-147 N POTASSIUM (test code = K/ABG) 3.8 mmol/L 3.4-5.0 N CHLORIDE (test code = CL/ABG) 109 mmol/L 100-108 H CREATININE ABG (test code = CREAABG) 3.3 mg/dL 0.8-1.3 H POC IONIZED CALCIUM (test co de = POCCA) 1.18 MMOL/L 1.12-1.32 N POC GLUCOSE (test code = POCGLU) 131 MG/DL 70-110 H HEMOGLOBIN [id number] 16:14:00* Test Item Value Reference Range Interpretation Comme nts HEMOGLOBIN ABG (test code = HGB/ABG) 10.0 G/DL 12.5-16.9 L [id number] 16:14:00* Test Item Value Reference Range Interpretation Comme nts HEMATOCRIT (test code = HCT/ABG) 29 % 37.5-50.7 L POC LACTIC [id number] 16:14:00* Test Item Value Reference Range Interpretation Comme nts POC LACTIC ACID (test code = POCLAC) 0.4 mmol/l 0.9-1.7 L GLUCOSE [id number] 14:02:00* Test Item Value Reference Range Interpretation Comme nts GLUCOSE BEDSIDE (test code = GLUBED) 176 MG/DL 70-110 H Performed by wendy ferguson at [facility] [id number] 13:38:00* Test Item Value Reference Range Interpretation Comments SURGICAL (test code = SR) RUN DATE: 03/06/23 [facility] - LAB PAGE 1 RUN TIME: 1338 Specimen Inquiry RUN USER: INTERFACE PATIENT: TEVIN NYE LOC: NANDINI U #: [id number] AGE/SX: 72/M ROOM: [facility] RE03/03/23REG DR: Luci Villeda : 52 BED: 1 DIS: STATUS: ADM IN TLOC: SPEC #: [id number] RECD: 03/05/23 STATUS: GILBERT REQ #: [id number] BHAVANI: 03/04/23- [facility] DR: Luci Villeda MD ENTERED: 03/05/23 SP TYPE: SURGICAL OTHR DR: No Primary or Family Physician Self Referred Noé Madrid MD, Molham MD Alnas, MajdORDERED: [id number], ANATOMIC SPEC COPIES TO: No Primary or Family Physician Self Referred Noé Madrid MD [address] [place] [address] Anibal Haynes MD [address] [place] [address] Sharmila Alan [address] [facility] [place] [address] Luci Villeda MD [address] [place] [address]. [address] [place] [address] PROCEDURES: 32312 (03/05/23-1016) TISSUES: A. ATRIUM - LEFT ATRIAL APPENDAGE CLINICAL HISTORY SAME CONTINUED ON NEXT PAGE RUN DATE: 03/06/23 [facility] - LAB PAGE 2 RUN TIME: 1338 Specimen Inquiry RUN USER: INTERFACE SPEC #: [id number] PATIENT: TEVIN NYE #[id number] (Continued) - FINAL DIAGNOSIS Heart, left atrial appendage, submitted: Cardiac muscle with some degenerative changes,consistent with atrial appendage. GROSS DESCRIPTION Received in formalin labeled left atrial appendage is a 3.5 x 2 x 1 cm portion of cysticmuscular tissue with attached adipose submitted (A). [facility] [place] [address], [place] [address] Unless gross only, the diagnosis is based [...] Su 03/06/23 1338 END OF REPORT GLUCOSE [id number] 12:19:00* Test Item Value Reference Range Interpretation Comme [facility] GLUCOSE BEDSIDE (test code = GLUBED) 152 MG/DL 70-110 H Performed by cer yun 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 [facility] POC ARTERIAL BLOOD [id number] 10:46:00* Test Item Value Reference Range Interpretation Comme [facility] POC ARTERIAL BLOOD GAS PH (t est code = POCPHA) 7.320 7.35-7.45 L POC ARTERIAL BLOOD GAS PCO2 (test code = IOFYEG8W) 51.3 mmHg 35.0-45 HH POC TCO2 ARTERIAL (test code = POCTCO2) 27.9 POC ARTERIAL BLOOD GAS PO2 ( test code = VVTSG7Q) 86.5 mmHg 80-100.0 N POC HCO3 ARTERIAL (test code = FOLHTO7T) 26.3 MMOL/L 22.0-26.0 H POC BASE EXCESS (test code = POCBEA) 0.3 MMOL/L -4.0-4.0 N POC O2 SATURATION (test code = POCO2S) 95.4 % 90-100 N ABG DELIVERY (test code = RACIEL) Cannula ABG TEMPERATURE (test code = TEMPA) 99.1 F ABG SITE (test code = SITEA) Art Line BASIC METABOLIC [id number] 10:46:00* Test Item Value Reference Range Interpretation Comme nts SODIUM (test code = NA/ABG) 144 mmol/L 134-147 N POTASSIUM (test code = K/ABG) 3.9 mmol/L 3.4-5.0 N CHLORIDE (test code = CL/ABG) 110 mmol/L 100-108 H CREATININE ABG (test code = CREAABG) 3.7 mg/dL 0.8-1.3 H POC IONIZED CALCIUM (test co de = POCCA) 1.16 MMOL/L 1.12-1.32 N POC GLUCOSE (test code = POCGLU) 146 MG/DL 70-110 H HEMOGLOBIN [id number] 10:46:00* Test Item Value Reference Range Interpretation Comme nts HEMOGLOBIN ABG (test code = HGB/ABG) 8.6 G/DL 12.5-16.9 L [id number] 10:46:00* Test Item Value Reference Range Interpretation Comme nts HEMATOCRIT (test code = HCT/ABG) 25 % 37.5-50.7 L POC LACTIC [id number] 10:46:00* Test Item Value Reference Range Interpretation Comme nts POC LACTIC ACID (test code = POCLAC) 0.7 mmol/l 0.9-1.7 L GLUCOSE [id number] 08:47:00* Test Item Value Reference Range Interpretation Comme nts GLUCOSE BEDSIDE (test code = GLUBED) 130 MG/DL 70-110 H Performed by cer tified 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 [facility] POC ARTERIAL BLOOD [id number] 05:54:00* Test Item Value Reference Range Interpretation Comme nts POC ARTERIAL BLOOD GAS PH (t est code = POCPHA) 7.318 7.35-7.45 L POC ARTERIAL BLOOD GAS PCO2 (test code = HWRQNP8Z) 52.4 mmHg 35.0-45 HH POC TCO2 ARTERIAL (test code = POCTCO2) 28.4 POC ARTERIAL BLOOD GAS PO2 ( test code = KEPZM5U) 74.1 mmHg 80-100.0 L POC HCO3 ARTERIAL (test code = CESZMZ1C) 26.8 MMOL/L 22.0-26.0 H POC BASE EXCESS (test code = POCBEA) 0.7 MMOL/L -4.0-4.0 N POC O2 SATURATION (test code = POCO2S) 93.1 % 90-100 N ABG DELIVERY (test code = RACIEL) 2L HFNC ABG SITE (test code = SITEA) Art Line BASIC METABOLIC [id number] 05:54:00* Test Item Value Reference Range Interpretation Comme nts SODIUM (test code = NA/ABG) 145 mmol/L 134-147 N POTASSIUM (test code = K/ABG) 4.0 mmol/L 3.4-5.0 N CHLORIDE (test code = CL/ABG) 110 mmol/L 100-108 H CREATININE ABG (test code = CREAABG) 3.4 mg/dL 0.8-1.3 H POC IONIZED CALCIUM (test co de = POCCA) 1.15 MMOL/L 1.12-1.32 N POC GLUCOSE (test code = POCGLU) 128 MG/DL 70-110 H HEMOGLOBIN [id number] 05:54:00* Test Item Value Reference Range Interpretation Comme nts HEMOGLOBIN ABG (test code = HGB/ABG) 7.0 G/DL 12.5-16.9 L [id number] 05:54:00* Test Item Value Reference Range Interpretation Comme nts HEMATOCRIT (test code = HCT/ABG) 21 % 37.5-50.7 L POC LACTIC [id number] 05:54:00* Test Item Value Reference Range Interpretation Comme nts POC LACTIC ACID (test code = POCLAC) 0.3 mmol/l 0.9-1.7 L BASIC METABOLIC [id number] 03:47:00* Test Item Value Reference Range Interpretation Comme nts SODIUM (test code = NA) 148 mEq/L 134-147 H POTASSIUM (test code = K) 4.4 mEq/L 3.4-5.0 N CHLORIDE (test code = CL) 111 mEq/L 100-108 H CARBON DIOXIDE (test code = CO2) 27 mEq/l 21-33 N ANION GAP (test code = GAP) 15 0-20 N GLUCOSE (test code = GLU) 135 mg/dL 70-110 H BLOOD UREA NITROGEN (test code = BUN) 46 mg/dL 7-18 H GLOMERULAR FILTRATION RATE (test code = GFR) 20.7 70-80 L The Glomerular Filtration Rate is a calculated parameterbased on serum Creatinine, patient age and sex. GFR valuesless than 60 mL/min/1.73 square meters are indicative ofChronic Kidney Disease. Values less than 15 mL/min/1.73square meters indicate Kidney failure. The calculation forGFR is based on the CKD-EPI (2020) calculation. This formulais race indifferent and is the recommended formula for GFRby the National Kidney Foundation for Adults.The GFR will not calculate if the sex is unknown or if thepatient's age is <18 years. CREATININE (test code = CREAT) 3.1 mg/dL 0.6-1.3 H CALCIUM (test code = CA) 9.1 mg/dL 8.0-10.5 N COMMENTS: POD #1HEPATIC FUNCTION [id number] 03:47:00* Test Item Value Reference Range Interpretation Comme nts TOTAL PROTEIN (test code = PROT) 5.4 g/dL 6.4-8.2 L ALBUMIN (test code = ALB) 3.40 g/dL 3.4-5.0 N BILIRUBIN TOTAL (test code = BILT) 0.30 mg/dL 0.0-1.0 N BILIRUBIN DIRECT (test code = BILD) 0.20 MG/DL 0.0-0.30 N BILIRUBIN INDIRECT (test cod e = BILIND) 0.10 MG/DL SGOT/AST (test code = AST) 30 IUnit/L 15-37 N SGPT/ALT (test code = ALT) 15 IUnit/L 30-65 L ALKALINE PHOSPHATASE TOTAL ( test code = ALKP) 30 IUnit/L 20-125 N COMMENTS: POD #[id number] 03:47:00* Test Item Value Reference Range Interpretation Comme nts MAGNESIUM (test code = MAG) 2.60 mg/dL 1.80-2.40 H COMMENTS: POD #1POC ARTERIAL BLOOD [id number] 01:35:00* Test Item Value Reference Range Interpretation Comme nts POC ARTERIAL BLOOD GAS PH (t est code = POCPHA) 7.318 7.35-7.45 L POC ARTERIAL BLOOD GAS PCO2 (test code = JZYRKP8B) 54.4 mmHg 35.0-45 HH POC TCO2 ARTERIAL (test code = POCTCO2) 29.5 POC ARTERIAL BLOOD GAS PO2 ( test code = EQDUJ9Z) 147.3 mmHg 80-100.0 H POC HCO3 ARTERIAL (test code = XVLJIW4J) 27.9 MMOL/L 22.0-26.0 H POC BASE EXCESS (test code = POCBEA) 1.7 MMOL/L -4.0-4.0 N POC O2 SATURATION (test code = POCO2S) 99.0 % 90-100 N ABG DELIVERY (test code = RACIEL) 4L HFNC ABG SITE (test code = SITEA) Art Line BASIC METABOLIC [id number] 01:35:00* Test Item Value Reference Range Interpretation Comme nts SODIUM (test code = NA/ABG) 145 mmol/L 134-147 N POTASSIUM (test code = K/ABG) 4.1 mmol/L 3.4-5.0 N CHLORIDE (test code = CL/ABG) 109 mmol/L 100-108 H CREATININE ABG (test code = CREAABG) 3.3 mg/dL 0.8-1.3 H POC IONIZED CALCIUM (test co de = POCCA) 1.18 MMOL/L 1.12-1.32 N POC GLUCOSE (test code = POCGLU) 114 MG/DL 70-110 H HEMOGLOBIN [id number] 01:35:00* Test Item Value Reference Range Interpretation Comme nts HEMOGLOBIN ABG (test code = HGB/ABG) 6.2 G/DL 12.5-16.9 L [id number] 01:35:00* Test Item Value Reference Range Interpretation Comme nts HEMATOCRIT (test code = HCT/ABG) 18 % 37.5-50.7 L POC LACTIC [id number] 01:35:00* Test Item Value Reference Range Interpretation Comme nts POC LACTIC ACID (test code = POCLAC) < 0.3 mmol/l 0.9-1.7 L CBC W/AUTO [id number] 01:34:00* Test Item Value Reference Range Interpretation Comme nts WHITE BLOOD CELL (test code = WBC) 3.8 x10 3/uL 4.5-11.0 L RED BLOOD CELL (test code = RBC) 2.16 x10 6/uL 4.00-5.60 L HEMOGLOBIN (test code = HGB) 6.6 g/dL 12.5-16.9 L HEMATOCRIT (test code = HCT) 20.9 % 37.5-50.7 L MEAN CELL VOLUME (test code = MCV) 96.8 fL 81.0-99.0 N MEAN CELL HGB (test code = MCH) 30.6 pg 27.0-33.0 N MEAN CELL HGB CONCETRATION (test code = MCHC) 31.6 g/dL 33.0-37.0 L RED CELL DISTRIBUTION WIDTH CV (test code = RDW) 17.2 % 11.5-14.5 H RED CELL DISTRIBUTION WIDTH SD (test code = RDW-SD) 61.0 fL 37.0-54.0 H PLATELET COUNT (test code = PLT) 77 x10 3/uL 150-400 L MEAN PLATELET VOLUME (test c ode = MPV) 11.4 fL 7.0-9.0 H NEUTROPHIL % (test code = NT%) 85.2 % 56.0-77.0 H IMMATURE GRANULOCYTE % (test code = IG%) 0.8 % 0.0-2.0 N LYMPHOCYTE % (test code = LY%) 4.2 % 14.0-32.0 L MONOCYTE % (test code = MO%) 9.8 % 4.8-9.0 H EOSINOPHIL % (test code = EO%) 0.0 % 0.3-3.7 L BASOPHIL % (test code = BA%) 0.0 % 0.0-2.0 N NUCLEATED RBC % (test code = NRBC%) 0.0 % 0-0 N NEUTROPHIL # (test code = NT#) 3.22 x10 3/uL 2.0-7.6 N IMMATURE GRANULOCYTE # (test code = IG#) 0.03 x10 3/uL 0.00-0.03 N LYMPHOCYTE # (test code = LY#) 0.16 x10 3/uL 1.0-3.8 L MONOCYTE # (test code = MO#) 0.37 x10 3/uL 0.1-0.8 N EOSINOPHIL # (test code = EO#) 0.00 x10 3/uL 0.0-0.2 N BASOPHIL # (test code = BA#) 0.00 x10 3/uL 0.0-0.2 N NUCLEATED RBC # (test code = NRBC#) 0.00 x10 3/uL 0.0-0.1 N MANUAL DIFF REQUIRED (test c ode = MDIFF) NO - XR CHEST 1 [id number] 00:00:00 [facility] : 1950 Sex: M FAX: Luci Wang [phone] [place]: St: [facility] FAX: Evon Garcia [facility] [phone] -- Name: REJI NYEMY [facility] : 1950 Age/S: 72/M [address] [place] [address] Unit #: [id number] Loc: [place] [address] Phys: Evon Andrew Physic Acct: [id number] Dis Date: Status: ADM IN PHONE #: [phone] Exam Date: 03/06/2023 06 FAX #: [phone] Reason: Cardiac Surgery Post Op EXAMS: CPT CODE: [id number] XR CHEST 1 V [id number] PROCEDURE INFORMATION: Exam: XR Chest Exam date and time: 03/06/2023 5:07 AM Age: 72 years old Clinical indication: Other: Cardiac surgery post op TECHNIQUE: Imaging protocol: Radiologic exam of the chest. Views: 1 view. COMPARISON: CR XR CHEST 1V 03/05/2023 4:59AM FINDINGS: Tubes, catheters and devices: Stable right IJ central line. Lungs: The bilateral lung opacities are grossly stable. Pleural spaces: Small pleural effusions could be present. Stable smallleft pneumothorax involving less than 10% volume. Heart/Mediastinum: The heart size is stable. Vasculature: Atherosclerotic calcifications. Bones/joints: Stable. Median sternotomy wires. IMPRESSION: 1. Grossly stable exam. 2. Stable small left pneumothorax involving less than 10% volume. Stable left chest tube. at 0805 Reported and signed by: Bon Spangler M.D. CC: Luci Villeda MD; Evon Andrew Technologist: RT Perla(Karuna) Trnscrd Date/Time/By: 03/06/2023 (804) : By: [email or web address] Orig Print D/T: S: 03/06/2023 (804) PAGE 1 Signed ReportCBC W/AUTO [id number] 23:46:00* Test Item Value Reference Range Interpretation Comme nts WHITE BLOOD CELL (test code = WBC) 4.6 x10 3/uL 4.5-11.0 N RED BLOOD CELL (test code = RBC) 2.32 x10 6/uL 4.00-5.60 L HEMOGLOBIN (test code = HGB) 7.2 g/dL 12.5-16.9 L HEMATOCRIT (test code = HCT) 22.0 % 37.5-50.7 L MEAN CELL VOLUME (test code = MCV) 94.8 fL 81.0-99.0 N MEAN CELL HGB (test code = MCH) 31.0 pg 27.0-33.0 N MEAN CELL HGB CONCETRATION (test code = MCHC) 32.7 g/dL 33.0-37.0 L RED CELL DISTRIBUTION WIDTH CV (test code = RDW) 17.2 % 11.5-14.5 H RED CELL DISTRIBUTION WIDTH SD (test code = RDW-SD) 58.8 fL 37.0-54.0 H PLATELET COUNT (test code = PLT) 84 x10 3/uL 150-400 L MEAN PLATELET VOLUME (test c ode = MPV) 10.9 fL 7.0-9.0 H NEUTROPHIL % (test code = NT%) 87.8 % 56.0-77.0 H IMMATURE GRANULOCYTE % (test code = IG%) 0.6 % 0.0-2.0 N LYMPHOCYTE % (test code = LY%) 3.2 % 14.0-32.0 L MONOCYTE % (test code = MO%) 8.4 % 4.8-9.0 N EOSINOPHIL % (test code = EO%) 0.0 % 0.3-3.7 L BASOPHIL % (test code = BA%) 0.0 % 0.0-2.0 N NUCLEATED RBC % (test code = NRBC%) 0.0 % 0-0 N NEUTROPHIL # (test code = NT#) 4.05 x10 3/uL 2.0-7.6 N IMMATURE GRANULOCYTE # (test code = IG#) 0.03 x10 3/uL 0.00-0.03 N LYMPHOCYTE # (test code = LY#) 0.15 x10 3/uL 1.0-3.8 L MONOCYTE # (test code = MO#) 0.39 x10 3/uL 0.1-0.8 N EOSINOPHIL # (test code = EO#) 0.00 x10 3/uL 0.0-0.2 N BASOPHIL # (test code = BA#) 0.00 x10 3/uL 0.0-0.2 N NUCLEATED RBC # (test code = NRBC#) 0.00 x10 3/uL 0.0-0.1 N MANUAL DIFF REQUIRED (test c ode = MDIFF) NO BASIC METABOLIC [id number] 23:21:00* Test Item Value Reference Range Interpretation Comme nts SODIUM (test code = NA) 147 mEq/L 134-147 N POTASSIUM (test code = K) 4.4 mEq/L 3.4-5.0 N CHLORIDE (test code = CL) 110 mEq/L 100-108 H CARBON DIOXIDE (test code = CO2) 29 mEq/l 21-33 N ANION GAP (test code = GAP) 12 0-20 N GLUCOSE (test code = GLU) 158 mg/dL 70-110 H BLOOD UREA NITROGEN (test code = BUN) 44 mg/dL 7-18 H GLOMERULAR FILTRATION RATE (test code = GFR) 22.4 70-80 L The Glomerular Filtration Rate is a calculated parameterbased on serum Creatinine, patient age and sex. GFR valuesless than 60 mL/min/1.73 square meters are indicative ofChronic Kidney Disease. Values less than 15 mL/min/1.73square meters indicate Kidney failure. The calculation forGFR is based on the CKD-EPI (2020) calculation. This formulais race indifferent and is the recommended formula for GFRby the National Kidney Foundation for Adults.The GFR will not calculate if the sex is unknown or if thepatient's age is <18 years. CREATININE (test code = CREAT) 2.9 mg/dL 0.6-1.3 H CALCIUM (test code = CA) 8.8 mg/dL 8.0-10.5 N [id number] 23:21:00* Test Item Value Reference Range Interpretation Comme nts PHOSPHOROUS (test code = PHOS) 5.2 MG/DL 2.5-4.9 H [id number] 23:21:00* Test Item Value Reference Range Interpretation Comme nts MAGNESIUM (test code = MAG) 2.69 mg/dL 1.80-2.40 H POC ARTERIAL BLOOD [id number] 23:18:00* Test Item Value Reference Range Interpretation Comme nts POC ARTERIAL BLOOD GAS PH (t est code = POCPHA) 7.354 7.35-7.45 N POC ARTERIAL BLOOD GAS PCO2 (test code = FXNOEA7J) 49.1 mmHg 35.0-45 H POC TCO2 ARTERIAL (test code = POCTCO2) 28.9 POC ARTERIAL BLOOD GAS PO2 ( test code = ENKPT0U) 94.7 mmHg 80-100.0 N POC HCO3 ARTERIAL (test code = ONGCCL2J) 27.4 MMOL/L 22.0-26.0 H POC BASE EXCESS (test code = POCBEA) 1.8 MMOL/L -4.0-4.0 N POC O2 SATURATION (test code = POCO2S) 96.9 % 90-100 N ABG DELIVERY (test code = RACIEL) 4L HFNC ABG SITE (test code = SITEA) Art Line BASIC METABOLIC [id number] 23:18:00* Test Item Value Reference Range Interpretation Comme nts SODIUM (test code = NA/ABG) 145 mmol/L 134-147 N POTASSIUM (test code = K/ABG) 3.9 mmol/L 3.4-5.0 N CHLORIDE (test code = CL/ABG) 110 mmol/L 100-108 H CREATININE ABG (test code = CREAABG) 2.8 mg/dL 0.8-1.3 H POC IONIZED CALCIUM (test co de = POCCA) 1.20 MMOL/L 1.12-1.32 N POC GLUCOSE (test code = POCGLU) 116 MG/DL 70-110 H HEMOGLOBIN [id number] 23:18:00* Test Item Value Reference Range Interpretation Comme nts HEMOGLOBIN ABG (test code = HGB/ABG) 6.8 G/DL 12.5-16.9 L [id number] 23:18:00* Test Item Value Reference Range Interpretation Comme nts HEMATOCRIT (test code = HCT/ABG) 20 % 37.5-50.7 L POC LACTIC [id number] 23:18:00* Test Item Value Reference Range Interpretation Comme nts POC LACTIC ACID (test code = POCLAC) 0.7 mmol/l 0.9-1.7 L POC ARTERIAL BLOOD [id number] 22:10:00* Test Item Value Reference Range Interpretation Comme nts POC ARTERIAL BLOOD GAS PH (t est code = POCPHA) 7.341 7.35-7.45 L POC ARTERIAL BLOOD GAS PCO2 (test code = FNLXSD6M) 54.8 mmHg 35.0-45 HH POC TCO2 ARTERIAL (test code = POCTCO2) 31.3 POC ARTERIAL BLOOD GAS PO2 ( test code = AMLME1O) 91.2 mmHg 80-100.0 N POC HCO3 ARTERIAL (test code = QLOLUG3J) 29.6 MMOL/L 22.0-26.0 HH POC BASE EXCESS (test code = POCBEA) 3.9 MMOL/L -4.0-4.0 N POC O2 SATURATION (test code = POCO2S) 96.3 % 90-100 N BASIC METABOLIC [id number] 22:10:00* Test Item Value Reference Range Interpretation Comme nts SODIUM (test code = NA/ABG) 146 mmol/L 134-147 N POTASSIUM (test code = K/ABG) 4.2 mmol/L 3.4-5.0 N CHLORIDE (test code = CL/ABG) 112 mmol/L 100-108 H CREATININE ABG (test code = CREAABG) 3.0 mg/dL 0.8-1.3 H POC IONIZED CALCIUM (test co de = POCCA) 1.17 MMOL/L 1.12-1.32 N POC GLUCOSE (test code = POCGLU) 104 MG/DL 70-110 N HEMOGLOBIN [id number] 22:10:00* Test Item Value Reference Range Interpretation Comme nts HEMOGLOBIN ABG (test code = HGB/ABG) 7.8 G/DL 12.5-16.9 L [id number] 22:10:00* Test Item Value Reference Range Interpretation Comme nts HEMATOCRIT (test code = HCT/ABG) 23 % 37.5-50.7 L POC LACTIC [id number] 22:10:00* Test Item Value Reference Range Interpretation Comme nts POC LACTIC ACID (test code = POCLAC) 0.4 mmol/l 0.9-1.7 L GLUCOSE [id number] 20:35:00* Test Item Value Reference Range Interpretation Comme nts GLUCOSE BEDSIDE (test code = GLUBED) 124 MG/DL 70-110 H Performed by cer tified 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 [facility] POC ARTERIAL BLOOD [id number] 20:23:00* Test Item Value Reference Range Interpretation Comme nts POC ARTERIAL BLOOD GAS PH (t est code = POCPHA) 7.342 7.35-7.45 L POC ARTERIAL BLOOD GAS PCO2 (test code = IFNSWN6M) 53.0 mmHg 35.0-45 HH POC TCO2 ARTERIAL (test code = POCTCO2) 30.4 POC ARTERIAL BLOOD GAS PO2 ( test code = SLOUK2I) 202.6 mmHg 80-100.0 HH POC HCO3 ARTERIAL (test code = PNCARS0F) 28.7 MMOL/L 22.0-26.0 HH POC BASE EXCESS (test code = POCBEA) 3.0 MMOL/L -4.0-4.0 N POC O2 SATURATION (test code = POCO2S) 99.7 % 90-100 N FIO2 (test code = FIO2A) 60 % PaO2/FiO2 (test code = [id number]) 337.66 mm/Hg ABG DELIVERY (test code = RACIEL) AVAPS ABG SITE (test code = SITEA) Art Line BASIC METABOLIC [id number] 20:23:00* Test Item Value Reference Range Interpretation Comme nts SODIUM (test code = NA/ABG) 146 mmol/L 134-147 N POTASSIUM (test code = K/ABG) 4.1 mmol/L 3.4-5.0 N CHLORIDE (test code = CL/ABG) 110 mmol/L 100-108 H CREATININE ABG (test code = CREAABG) 2.0 mg/dL 0.8-1.3 H POC IONIZED CALCIUM (test co de = POCCA) 1.15 MMOL/L 1.12-1.32 N POC GLUCOSE (test code = POCGLU) 116 MG/DL 70-110 H HEMOGLOBIN [id number] 20:23:00* Test Item Value Reference Range Interpretation Comme nts HEMOGLOBIN ABG (test code = HGB/ABG) 7.6 G/DL 12.5-16.9 L [id number] 20:23:00* Test Item Value Reference Range Interpretation Comme nts HEMATOCRIT (test code = HCT/ABG) 22 % 37.5-50.7 L POC LACTIC [id number] 20:23:00* Test Item Value Reference Range Interpretation Comme nts POC LACTIC ACID (test code = POCLAC) < 0.3 mmol/l 0.9-1.7 L UR SODIUM [id number] 19:27:00* Test Item Value Reference Range Interpretation Comme nts UR SODIUM RANDOM (test code = JERSON) 14 MEQ/L The Reference Range and Method Performance specificationshave not been established for this fluid. The test resultshould be correlated into the clinical context forinterpretation. UR CREATININE [id number] 19:27:00* Test Item Value Reference Range Interpretation Comme nts UR CREATININE RANDOM (test code = CREATU) 53.7 mg/dL The Reference Ra nge and Method Performance specificationshave not been established for this fluid. The test resultshould be correlated into the clinical context forinterpretation. POC ARTERIAL BLOOD [id number] 18:16:00* Test Item Value Reference Range Interpretation Comme nts POC ARTERIAL BLOOD GAS PH (t est code = POCPHA) 7.339 7.35-7.45 L POC ARTERIAL BLOOD GAS PCO2 (test code = QGGMRU4V) 55.2 mmHg 35.0-45 HH POC TCO2 ARTERIAL (test code = POCTCO2) 31.4 POC ARTERIAL BLOOD GAS PO2 ( test code = XPDWD1W) 85.1 mmHg 80-100.0 N POC HCO3 ARTERIAL (test code = TDZXOI0U) 29.7 MMOL/L 22.0-26.0 HH POC BASE EXCESS (test code = POCBEA) 4.0 MMOL/L -4.0-4.0 N POC O2 SATURATION (test code = POCO2S) 95.5 % 90-100 N FIO2 (test code = FIO2A) 60.0 % PaO2/FiO2 (test code = [id number]) 141.80 mm/Hg ABG DELIVERY (test code = RACIEL) BiPAP ABG SITE (test code = SITEA) Art Line SHAYLA'S TEST (test code = ALLENS) N/A BASIC METABOLIC [id number] 18:16:00* Test Item Value Reference Range Interpretation Comme nts SODIUM (test code = NA/ABG) 144 mmol/L 134-147 N POTASSIUM (test code = K/ABG) 4.2 mmol/L 3.4-5.0 N CHLORIDE (test code = CL/ABG) 111 mmol/L 100-108 H CREATININE ABG (test code = CREAABG) 2.8 mg/dL 0.8-1.3 H POC IONIZED CALCIUM (test co de = POCCA) 1.16 MMOL/L 1.12-1.32 N POC GLUCOSE (test code = POCGLU) 186 MG/DL 70-110 H HEMOGLOBIN [id number] 18:16:00* Test Item Value Reference Range Interpretation Comme nts HEMOGLOBIN ABG (test code = HGB/ABG) 8.3 G/DL 12.5-16.9 L [id number] 18:16:00* Test Item Value Reference Range Interpretation Comme nts HEMATOCRIT (test code = HCT/ABG) 24 % 37.5-50.7 L POC LACTIC [id number] 18:16:00* Test Item Value Reference Range Interpretation Comme nts POC LACTIC ACID (test code = POCLAC) 0.8 mmol/l 0.9-1.7 L BASIC METABOLIC [id number] 17:33:00* Test Item Value Reference Range Interpretation Comme nts SODIUM (test code = NA) 148 mEq/L 134-147 H POTASSIUM (test code = K) 4.5 mEq/L 3.4-5.0 N CHLORIDE (test code = CL) 109 mEq/L 100-108 H CARBON DIOXIDE (test code = CO2) 27 mEq/l 21-33 N ANION GAP (test code = GAP) 16 0-20 N GLUCOSE (test code = GLU) 217 mg/dL 70-110 H BLOOD UREA NITROGEN (test code = BUN) 41 mg/dL 7-18 H GLOMERULAR FILTRATION RATE (test code = GFR) 24.4 70-80 L The Glomerular Filtration Rate is a calculated parameterbased on serum Creatinine, patient age and sex. GFR valuesless than 60 mL/min/1.73 square meters are indicative ofChronic Kidney Disease. Values less than 15 mL/min/1.73square meters indicate Kidney failure. The calculation forGFR is based on the CKD-EPI (2020) calculation. This formulais race indifferent and is the recommended formula for GFRby the National Kidney Foundation for Adults.The GFR will not calculate if the sex is unknown or if thepatient's age is <18 years. CREATININE (test code = CREAT) 2.7 mg/dL 0.6-1.3 H CALCIUM (test code = CA) 9.0 mg/dL 8.0-10.5 N [id number] 17:33:00* Test Item Value Reference Range Interpretation Comme nts MAGNESIUM (test code = MAG) 2.58 mg/dL 1.80-2.40 H CALCIUM [id number] 17:33:00* Test Item Value Reference Range Interpretation Comme nts CALCIUM IONIZED (test code = BIBIANA) 1.11 MMOL/L 1.09-1.30 N GLUCOSE [id number] 16:08:00* Test Item Value Reference Range Interpretation Comme nts GLUCOSE BEDSIDE (test code = GLUBED) 210 MG/DL 70-110 H Performed by cer yun 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 [facility] POC ARTERIAL BLOOD [id number] 15:47:00* Test Item Value Reference Range Interpretation Comme nts POC ARTERIAL BLOOD GAS PH (t est code = POCPHA) 7.275 7.35-7.45 LL POC ARTERIAL BLOOD GAS PCO2 (test code = ZZMAME6S) 62.7 mmHg 35.0-45 HH POC TCO2 ARTERIAL (test code = POCTCO2) 31.0 POC ARTERIAL BLOOD GAS PO2 ( test code = POXOX2B) 110.1 mmHg 80-100.0 H POC HCO3 ARTERIAL (test code = KFRFBB3Z) 29.1 MMOL/L 22.0-26.0 HH POC BASE EXCESS (test code = POCBEA) 2.3 MMOL/L -4.0-4.0 N POC O2 SATURATION (test code = POCO2S) 97.4 % 90-100 N ABG DELIVERY (test code = RACIEL) BiPAP ABG SITE (test code = SITEA) Art Line BASIC METABOLIC [id number] 15:47:00* Test Item Value Reference Range Interpretation Comme nts SODIUM (test code = NA/ABG) 145 mmol/L 134-147 N POTASSIUM (test code = K/ABG) 4.4 mmol/L 3.4-5.0 N CHLORIDE (test code = CL/ABG) 110 mmol/L 100-108 H CREATININE ABG (test code = CREAABG) 2.7 mg/dL 0.8-1.3 H POC IONIZED CALCIUM (test co de = POCCA) 1.21 MMOL/L 1.12-1.32 N POC GLUCOSE (test code = POCGLU) 196 MG/DL 70-110 H HEMOGLOBIN [id number] 15:47:00* Test Item Value Reference Range Interpretation Comme nts HEMOGLOBIN ABG (test code = HGB/ABG) 8.4 G/DL 12.5-16.9 L [id number] 15:47:00* Test Item Value Reference Range Interpretation Comme nts HEMATOCRIT (test code = HCT/ABG) 25 % 37.5-50.7 L POC LACTIC [id number] 15:47:00* Test Item Value Reference Range Interpretation Comme nts POC LACTIC ACID (test code = POCLAC) 0.5 mmol/l 0.9-1.7 L POC ARTERIAL BLOOD [id number] 14:48:00* Test Item Value Reference Range Interpretation Comme nts POC ARTERIAL BLOOD GAS PH (t est code = POCPHA) 7.317 7.35-7.45 L POC ARTERIAL BLOOD GAS PCO2 (test code = IWSPUC8H) 55.6 mmHg 35.0-45 HH POC TCO2 ARTERIAL (test code = POCTCO2) 30.1 POC ARTERIAL BLOOD GAS PO2 ( test code = GHIDI3K) 185.9 mmHg 80-100.0 H POC HCO3 ARTERIAL (test code = CCIZIM7W) 28.4 MMOL/L 22.0-26.0 HH POC BASE EXCESS (test code = POCBEA) 2.3 MMOL/L -4.0-4.0 N POC O2 SATURATION (test code = POCO2S) 99.5 % 90-100 N FIO2 (test code = FIO2A) 40 % PaO2/FiO2 (test code = JEO4RPU1) 464.75 mm/Hg ABG DELIVERY (test code = RACIEL) BiPAP ABG VENT RESP RATE (test cod e = RRA) 20 /MIN ABG TIDAL VOLUME (test code = TVA) 450 ml ABG PEEP (test code = PEEPA) 8 cmH2O ABG PRESSURE SUPPORT (test c ode = PSABG) 25 cmH2O ABG TEMPERATURE (test code = TEMPA) 98.8 F ABG SITE (test code = SITEA) Art Line SHAYLA'S TEST (test code = ALLENS) N/A BASIC METABOLIC [id number] 14:48:00* Test Item Value Reference Range Interpretation Comme nts SODIUM (test code = NA/ABG) 145 mmol/L 134-147 N POTASSIUM (test code = K/ABG) 4.4 mmol/L 3.4-5.0 N CHLORIDE (test code = CL/ABG) 112 mmol/L 100-108 H CREATININE ABG (test code = CREAABG) 2.4 mg/dL 0.8-1.3 H POC IONIZED CALCIUM (test co de = POCCA) 1.17 MMOL/L 1.12-1.32 N POC GLUCOSE (test code = POCGLU) 223 MG/DL 70-110 H HEMOGLOBIN [id number] 14:48:00* Test Item Value Reference Range Interpretation Comme nts HEMOGLOBIN ABG (test code = HGB/ABG) 7.9 G/DL 12.5-16.9 L [id number] 14:48:00* Test Item Value Reference Range Interpretation Comme nts HEMATOCRIT (test code = HCT/ABG) 23 % 37.5-50.7 L POC LACTIC [id number] 14:48:00* Test Item Value Reference Range Interpretation Comme nts POC LACTIC ACID (test code = POCLAC) 0.8 mmol/l 0.9-1.7 L CBC W/AUTO [id number] 11:05:00* Test Item Value Reference Range Interpretation Comme nts WHITE BLOOD CELL (test code = WBC) 7.2 x10 3/uL 4.5-11.0 RED BLOOD CELL (test code = RBC) 2.71 x10 6/uL 4.00-5.60 L HEMOGLOBIN (test code = HGB) 8.3 g/dL 12.5-16.9 L HEMATOCRIT (test code = HCT) 25.2 % 37.5-50.7 L MEAN CELL VOLUME (test code = MCV) 93.0 fL 81.0-99.0 N MEAN CELL HGB (test code = MCH) 30.6 pg 27.0-33.0 N MEAN CELL HGB CONCETRATION (test code = MCHC) 32.9 g/dL 33.0-37.0 L RED CELL DISTRIBUTION WIDTH CV (test code = RDW) 17.1 % 11.5-14.5 H RED CELL DISTRIBUTION WIDTH SD (test code = RDW-SD) 57.0 fL 37.0-54.0 H PLATELET COUNT (test code = PLT) 123 x10 3/uL 150-400 L MEAN PLATELET VOLUME (test c ode = MPV) 11.0 fL 7.0-9.0 H NEUTROPHIL % (test code = NT%) 85.7 % 56.0-77.0 H IMMATURE GRANULOCYTE % (test code = IG%) 0.4 % 0.0-2.0 N LYMPHOCYTE % (test code = LY%) 3.6 % 14.0-32.0 L MONOCYTE % (test code = MO%) 10.3 % 4.8-9.0 H EOSINOPHIL % (test code = EO%) 0.0 % 0.3-3.7 L BASOPHIL % (test code = BA%) 0.0 % 0.0-2.0 N NUCLEATED RBC % (test code = NRBC%) 0.0 % 0-0 N NEUTROPHIL # (test code = NT#) 6.16 x10 3/uL 2.0-7.6 N IMMATURE GRANULOCYTE # (test code = IG#) 0.03 x10 3/uL 0.00-0.03 N LYMPHOCYTE # (test code = LY#) 0.26 x10 3/uL 1.0-3.8 L MONOCYTE # (test code = MO#) 0.74 x10 3/uL 0.1-0.8 N EOSINOPHIL # (test code = EO#) 0.00 x10 3/uL 0.0-0.2 N BASOPHIL # (test code = BA#) 0.00 x10 3/uL 0.0-0.2 N NUCLEATED RBC # (test code = NRBC#) 0.00 x10 3/uL 0.0-0.1 N MANUAL DIFF REQUIRED (test c ode = MDIFF) NO POC ARTERIAL BLOOD [id number] 10:51:00* Test Item Value Reference Range Interpretation Comme nts POC ARTERIAL BLOOD GAS PH (t est code = POCPHA) 7.327 7.35-7.45 L POC ARTERIAL BLOOD GAS PCO2 (test code = HPMUMK1O) 63.4 mmHg 35.0-45 HH POC TCO2 ARTERIAL (test code = POCTCO2) 35.2 POC ARTERIAL BLOOD GAS PO2 ( test code = VAHRI3L) 108.3 mmHg 80-100.0 H POC HCO3 ARTERIAL (test code = VKTKBD8G) 33.2 MMOL/L 22.0-26.0 HH POC BASE EXCESS (test code = POCBEA) 7.2 MMOL/L -4.0-4.0 H POC O2 SATURATION (test code = POCO2S) 97.6 % 90-100 N FIO2 (test code = FIO2A) 30 % PaO2/FiO2 (test code = OQN4XJP7) 361.00 mm/Hg ABG DELIVERY (test code = RACIEL) BiPAP ABG VENT RESP RATE (test cod e = RRA) 24 /MIN ABG PEEP (test code = PEEPA) 7 cmH2O ABG PRESSURE SUPPORT (test c ode = PSABG) 15 cmH2O ABG TEMPERATURE (test code = TEMPA) 98.6 F ABG SITE (test code = SITEA) Art Line SHAYLA'S TEST (test code = ALLENS) N/A BASIC METABOLIC [id number] 10:51:00* Test Item Value Reference Range Interpretation Comme nts SODIUM (test code = NA/ABG) 148 mmol/L 134-147 H POTASSIUM (test code = K/ABG) 4.4 mmol/L 3.4-5.0 N CHLORIDE (test code = CL/ABG) 108 mmol/L 100-108 N CREATININE ABG (test code = CREAABG) 2.4 mg/dL 0.8-1.3 H POC IONIZED CALCIUM (test co de = POCCA) 1.25 MMOL/L 1.12-1.32 N POC GLUCOSE (test code = POCGLU) 88 MG/DL 70-110 N HEMOGLOBIN [id number] 10:51:00* Test Item Value Reference Range Interpretation Comme nts HEMOGLOBIN ABG (test code = HGB/ABG) 8.0 G/DL 12.5-16.9 L [id number] 10:51:00* Test Item Value Reference Range Interpretation Comme nts HEMATOCRIT (test code = HCT/ABG) 24 % 37.5-50.7 L POC LACTIC [id number] 10:51:00* Test Item Value Reference Range Interpretation Comme nts POC LACTIC ACID (test code = POCLAC) 0.5 mmol/l 0.9-1.7 L GLUCOSE [id number] 10:17:00* Test Item Value Reference Range Interpretation Comme nts GLUCOSE BEDSIDE (test code = GLUBED) 110 MG/DL 70-110 N Performed by cer tified 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 [facility] BASIC METABOLIC [id number] 08:28:00* Test Item Value Reference Range Interpretation Comme nts SODIUM (test code = NA) 148 mEq/L 134-147 H POTASSIUM (test code = K) 4.6 mEq/L 3.4-5.0 N CHLORIDE (test code = CL) 111 mEq/L 100-108 H CARBON DIOXIDE (test code = CO2) 32 mEq/l 21-33 N ANION GAP (test code = GAP) 10 0-20 N GLUCOSE (test code = GLU) 134 mg/dL 70-110 H BLOOD UREA NITROGEN (test code = BUN) 37 mg/dL 7-18 H GLOMERULAR FILTRATION RATE (test code = GFR) 29.6 70-80 L The Glomerular Filtration Rate is a calculated parameterbased on serum Creatinine, patient age and sex. GFR valuesless than 60 mL/min/1.73 square meters are indicative ofChronic Kidney Disease. Values less than 15 mL/min/1.73square meters indicate Kidney failure. The calculation forGFR is based on the CKD-EPI (2020) calculation. This formulais race indifferent and is the recommended formula for GFRby the National Kidney Foundation for Adults.The GFR will not calculate if the sex is unknown or if thepatient's age is <18 years. CREATININE (test code = CREAT) 2.3 mg/dL 0.6-1.3 H CALCIUM (test code = CA) 8.7 mg/dL 8.0-10.5 N [id number] 08:28:00* Test Item Value Reference Range Interpretation Comme nts MAGNESIUM (test code = MAG) 2.35 mg/dL 1.80-2.40 N CALCIUM [id number] 08:28:00* Test Item Value Reference Range Interpretation Comme nts CALCIUM IONIZED (test code = BIBIANA) 1.14 MMOL/L 1.09-1.30 N POC ARTERIAL BLOOD [id number] 07:46:00* Test Item Value Reference Range Interpretation Comme nts POC ARTERIAL BLOOD GAS PH (t est code = POCPHA) 7.343 7.35-7.45 L POC ARTERIAL BLOOD GAS PCO2 (test code = TKHOIG9B) 58.9 mmHg 35.0-45 HH POC TCO2 ARTERIAL (test code = POCTCO2) 33.8 POC ARTERIAL BLOOD GAS PO2 ( test code = JQAMZ2P) 82.1 mmHg 80-100.0 N POC HCO3 ARTERIAL (test code = MWANEQ6A) 32.0 MMOL/L 22.0-26.0 HH POC BASE EXCESS (test code = POCBEA) 6.3 MMOL/L -4.0-4.0 H POC O2 SATURATION (test code = POCO2S) 95.1 % 90-100 N FIO2 (test code = FIO2A) 30 % PaO2/FiO2 (test code = FVV4PSH5) 273.66 mm/Hg ABG DELIVERY (test code = RACIEL) Bagging ABG VENT MODE (test code = MODEA) CPAP/PS ABG TEMPERATURE (test code = TEMPA) 98.3 F ABG SITE (test code = SITEA) Art Line SHAYLA'S TEST (test code = ALLENS) N/A BASIC METABOLIC [id number] 07:46:00* Test Item Value Reference Range Interpretation Comme nts SODIUM (test code = NA/ABG) 147 mmol/L 134-147 N POTASSIUM (test code = K/ABG) 4.6 mmol/L 3.4-5.0 N CHLORIDE (test code = CL/ABG) 108 mmol/L 100-108 N CREATININE ABG (test code = CREAABG) 2.4 mg/dL 0.8-1.3 H POC IONIZED CALCIUM (test co de = POCCA) 1.19 MMOL/L 1.12-1.32 N POC GLUCOSE (test code = POCGLU) 113 MG/DL 70-110 H HEMOGLOBIN [id number] 07:46:00* Test Item Value Reference Range Interpretation Comme nts HEMOGLOBIN ABG (test code = HGB/ABG) 7.8 G/DL 12.5-16.9 L [id number] 07:46:00* Test Item Value Reference Range Interpretation Comme nts HEMATOCRIT (test code = HCT/ABG) 23 % 37.5-50.7 L POC LACTIC [id number] 07:46:00* Test Item Value Reference Range Interpretation Comme nts POC LACTIC ACID (test code = POCLAC) 0.9 mmol/l 0.9-1.7 N POC ARTERIAL BLOOD [id number] 06:42:00* Test Item Value Reference Range Interpretation Comme nts POC ARTERIAL BLOOD GAS PH (t est code = POCPHA) 7.322 7.35-7.45 L POC ARTERIAL BLOOD GAS PCO2 (test code = NASVNO7A) 58.5 mmHg 35.0-45 HH POC TCO2 ARTERIAL (test code = POCTCO2) 32.1 POC ARTERIAL BLOOD GAS PO2 ( test code = AHOPZ5K) 105.9 mmHg 80-100.0 H POC HCO3 ARTERIAL (test code = ZSQYWC4P) 30.3 MMOL/L 22.0-26.0 HH POC BASE EXCESS (test code = POCBEA) 4.2 MMOL/L -4.0-4.0 H POC O2 SATURATION (test code = POCO2S) 97.4 % 90-100 N FIO2 (test code = FIO2A) 35 % PaO2/FiO2 (test code = THF8TEQ3) 302.57 mm/Hg ABG DELIVERY (test code = RACIEL) BiPAP ABG VENT MODE (test code = MODEA) 08/12 ABG SITE (test code = SITEA) Art Line BASIC METABOLIC [id number] 06:42:00* Test Item Value Reference Range Interpretation Comme nts SODIUM (test code = NA/ABG) 147 mmol/L 134-147 N POTASSIUM (test code = K/ABG) 4.6 mmol/L 3.4-5.0 N CHLORIDE (test code = CL/ABG) 108 mmol/L 100-108 N CREATININE ABG (test code = CREAABG) 1.8 mg/dL 0.8-1.3 H POC IONIZED CALCIUM (test co de = POCCA) 1.22 MMOL/L 1.12-1.32 N POC GLUCOSE (test code = POCGLU) 126 MG/DL 70-110 H HEMOGLOBIN [id number] 06:42:00* Test Item Value Reference Range Interpretation Comme nts HEMOGLOBIN ABG (test code = HGB/ABG) 7.1 G/DL 12.5-16.9 L [id number] 06:42:00* Test Item Value Reference Range Interpretation Comme nts HEMATOCRIT (test code = HCT/ABG) 21 % 37.5-50.7 L POC LACTIC [id number] 06:42:00* Test Item Value Reference Range Interpretation Comme nts POC LACTIC ACID (test code = POCLAC) 1.0 mmol/l 0.9-1.7 N POC ARTERIAL BLOOD [id number] 05:35:00* Test Item Value Reference Range Interpretation Comme nts POC ARTERIAL BLOOD GAS PH (t est code = POCPHA) 7.259 7.35-7.45 LL POC ARTERIAL BLOOD GAS PCO2 (test code = YJLDFJ7Z) 66.1 mmHg 35.0-45 HH POC TCO2 ARTERIAL (test code = POCTCO2) 31.7 POC ARTERIAL BLOOD GAS PO2 ( test code = LTVFH4Q) 106.5 mmHg 80-100.0 H POC HCO3 ARTERIAL (test code = QRKVPM6D) 29.6 MMOL/L 22.0-26.0 HH POC BASE EXCESS (test code = POCBEA) 2.5 MMOL/L -4.0-4.0 N POC O2 SATURATION (test code = POCO2S) 96.9 % 90-100 N FIO2 (test code = FIO2A) 40 % PaO2/FiO2 (test code = CGR4HBI7) 266.25 mm/Hg ABG DELIVERY (test code = RACIEL) BiPAP ABG VENT MODE (test code = MODEA) 12/5 ABG SITE (test code = SITEA) Art Line BASIC METABOLIC [id number] 05:35:00* Test Item Value Reference Range Interpretation Comme nts SODIUM (test code = NA/ABG) 145 mmol/L 134-147 N POTASSIUM (test code = K/ABG) 4.7 mmol/L 3.4-5.0 N CHLORIDE (test code = CL/ABG) 109 mmol/L 100-108 H CREATININE ABG (test code = CREAABG) 1.9 mg/dL 0.8-1.3 H POC IONIZED CALCIUM (test co de = POCCA) 1.23 MMOL/L 1.12-1.32 N POC GLUCOSE (test code = POCGLU) 146 MG/DL 70-110 H HEMOGLOBIN [id number] 05:35:00* Test Item Value Reference Range Interpretation Comme nts HEMOGLOBIN ABG (test code = HGB/ABG) 7.4 G/DL 12.5-16.9 L [id number] 05:35:00* Test Item Value Reference Range Interpretation Comme nts HEMATOCRIT (test code = HCT/ABG) 22 % 37.5-50.7 L POC LACTIC [id number] 05:35:00* Test Item Value Reference Range Interpretation Comme nts POC LACTIC ACID (test code = POCLAC) 1.7 mmol/l 0.9-1.7 N POC ARTERIAL BLOOD [id number] 04:59:00* Test Item Value Reference Range Interpretation Comme nts POC ARTERIAL BLOOD GAS PH (t est code = POCPHA) 7.218 7.35-7.45 LL POC ARTERIAL BLOOD GAS PCO2 (test code = UPYLHS2M) 77.2 mmHg 35.0-45 HH POC TCO2 ARTERIAL (test code = POCTCO2) 33.8 POC ARTERIAL BLOOD GAS PO2 ( test code = ANTGO1D) 103.7 mmHg 80-100.0 H POC HCO3 ARTERIAL (test code = TOFOGE0I) 31.5 MMOL/L 22.0-26.0 HH POC BASE EXCESS (test code = POCBEA) 3.7 MMOL/L -4.0-4.0 N POC O2 SATURATION (test code = POCO2S) 96.2 % 90-100 N ABG VENT MODE (test code = MODEA) 4L HFNC ABG SITE (test code = SITEA) Art Line BASIC METABOLIC [id number] 04:59:00* Test Item Value Reference Range Interpretation Comme nts SODIUM (test code = NA/ABG) 149 mmol/L 134-147 H POTASSIUM (test code = K/ABG) 4.7 mmol/L 3.4-5.0 N CHLORIDE (test code = CL/ABG) 108 mmol/L 100-108 N CREATININE ABG (test code = CREAABG) 2.1 mg/dL 0.8-1.3 H POC IONIZED CALCIUM (test co de = POCCA) 1.30 MMOL/L 1.12-1.32 N POC GLUCOSE (test code = POCGLU) 126 MG/DL 70-110 H HEMOGLOBIN [id number] 04:59:00* Test Item Value Reference Range Interpretation Comme nts HEMOGLOBIN ABG (test code = HGB/ABG) 8.0 G/DL 12.5-16.9 L [id number] 04:59:00* Test Item Value Reference Range Interpretation Comme nts HEMATOCRIT (test code = HCT/ABG) 24 % 37.5-50.7 L POC LACTIC [id number] 04:59:00* Test Item Value Reference Range Interpretation Comme nts POC LACTIC ACID (test code = POCLAC) 2.0 mmol/l 0.9-1.7 H BASIC METABOLIC [id number] 02:47:00* Test Item Value Reference Range Interpretation Comme nts SODIUM (test code = NA) 150 mEq/L 134-147 H POTASSIUM (test code = K) 4.4 mEq/L 3.4-5.0 N CHLORIDE (test code = CL) 113 mEq/L 100-108 H CARBON DIOXIDE (test code = CO2) 30 mEq/l 21-33 N ANION GAP (test code = GAP) 12 0-20 N GLUCOSE (test code = GLU) 132 mg/dL 70-110 H BLOOD UREA NITROGEN (test code = BUN) 30 mg/dL 7-18 H GLOMERULAR FILTRATION RATE (test code = GFR) 37.3 70-80 L The Glomerular Filtration Rate is a calculated parameterbased on serum Creatinine, patient age and sex. GFR valuesless than 60 mL/min/1.73 square meters are indicative ofChronic Kidney Disease. Values less than 15 mL/min/1.73square meters indicate Kidney failure. The calculation forGFR is based on the CKD-EPI (2020) calculation. This formulais race indifferent and is the recommended formula for GFRby the National Kidney Foundation for Adults.The GFR will not calculate if the sex is unknown or if thepatient's age is <18 years. CREATININE (test code = CREAT) 1.9 mg/dL 0.6-1.3 H CALCIUM (test code = CA) 9.3 mg/dL 8.0-10.5 N COMMENTS: POD #1HEPATIC FUNCTION [id number] 02:47:00* Test Item Value Reference Range Interpretation Comme nts TOTAL PROTEIN (test code = PROT) 5.1 g/dL 6.4-8.2 L ALBUMIN (test code = ALB) 3.40 g/dL 3.4-5.0 N BILIRUBIN TOTAL (test code = BILT) 0.40 mg/dL 0.0-1.0 BILIRUBIN DIRECT (test code = BILD) 0.20 MG/DL 0.0-0.30 BILIRUBIN INDIRECT (test cod e = BILIND) 0.20 MG/DL SGOT/AST (test code = AST) 40 IUnit/L 15-37 H SGPT/ALT (test code = ALT) 13 IUnit/L 30-65 L ALKALINE PHOSPHATASE TOTAL ( test code = ALKP) 26 IUnit/L 20-125 N COMMENTS: POD #[id number] 02:47:00* Test Item Value Reference Range Interpretation Comme nts MAGNESIUM (test code = MAG) 2.66 mg/dL 1.80-2.40 H COMMENTS: POD #1LACTIC ACID 2ND [id number] 02:43:00* Test Item Value Reference Range Interpretation Comme nts LACTIC ACID 2ND REPEAT (test code = LACT2) 2.4 mmol/L 0.4-1.9 H CBC W/AUTO [id number] 02:21:00* Test Item Value Reference Range Interpretation Comme nts WHITE BLOOD CELL (test code = WBC) 3.9 x10 3/uL 4.5-11.0 L RED BLOOD CELL (test code = RBC) 2.51 x10 6/uL 4.00-5.60 L HEMOGLOBIN (test code = HGB) 7.7 g/dL 12.5-16.9 L HEMATOCRIT (test code = HCT) 22.9 % 37.5-50.7 L MEAN CELL VOLUME (test code = MCV) 91.2 fL 81.0-99.0 N MEAN CELL HGB (test code = MCH) 30.7 pg 27.0-33.0 N MEAN CELL HGB CONCETRATION (test code = MCHC) 33.6 g/dL 33.0-37.0 N RED CELL DISTRIBUTION WIDTH CV (test code = RDW) 16.2 % 11.5-14.5 H RED CELL DISTRIBUTION WIDTH SD (test code = RDW-SD) 53.5 fL 37.0-54.0 N PLATELET COUNT (test code = PLT) 88 x10 3/uL 150-400 L MEAN PLATELET VOLUME (test c ode = MPV) 11.0 fL 7.0-9.0 H NEUTROPHIL % (test code = NT%) 86.9 % 56.0-77.0 H IMMATURE GRANULOCYTE % (test code = IG%) 0.5 % 0.0-2.0 N LYMPHOCYTE % (test code = LY%) 3.1 % 14.0-32.0 L MONOCYTE % (test code = MO%) 9.5 % 4.8-9.0 H EOSINOPHIL % (test code = EO%) 0.0 % 0.3-3.7 L BASOPHIL % (test code = BA%) 0.0 % 0.0-2.0 N NUCLEATED RBC % (test code = NRBC%) 0.0 % 0-0 N NEUTROPHIL # (test code = NT#) 3.39 x10 3/uL 2.0-7.6 N IMMATURE GRANULOCYTE # (test code = IG#) 0.02 x10 3/uL 0.00-0.03 N LYMPHOCYTE # (test code = LY#) 0.12 x10 3/uL 1.0-3.8 L MONOCYTE # (test code = MO#) 0.37 x10 3/uL 0.1-0.8 N EOSINOPHIL # (test code = EO#) 0.00 x10 3/uL 0.0-0.2 N BASOPHIL # (test code = BA#) 0.00 x10 3/uL 0.0-0.2 N NUCLEATED RBC # (test code = NRBC#) 0.00 x10 3/uL 0.0-0.1 N MANUAL DIFF REQUIRED (test c ode = MDIFF) NO POC ARTERIAL BLOOD [id number] 02:16:00* Test Item Value Reference Range Interpretation Comme nts POC ARTERIAL BLOOD GAS PH (t est code = POCPHA) 7.312 7.35-7.45 L POC ARTERIAL BLOOD GAS PCO2 (test code = FMYWHD3H) 65.1 mmHg 35.0-45 HH POC TCO2 ARTERIAL (test code = POCTCO2) 35.0 POC ARTERIAL BLOOD GAS PO2 ( test code = HUQFS1O) 97.2 mmHg 80-100.0 N POC HCO3 ARTERIAL (test code = BBFGOG2B) 33.0 MMOL/L 22.0-26.0 HH POC BASE EXCESS (test code = POCBEA) 6.7 MMOL/L -4.0-4.0 H POC O2 SATURATION (test code = POCO2S) 96.5 % 90-100 N ABG DELIVERY (test code = RACIEL) 4L HFNC ABG SITE (test code = SITEA) Art Line BASIC METABOLIC [id number] 02:16:00* Test Item Value Reference Range Interpretation Comme nts SODIUM (test code = NA/ABG) 147 mmol/L 134-147 N POTASSIUM (test code = K/ABG) 4.4 mmol/L 3.4-5.0 N CHLORIDE (test code = CL/ABG) 108 mmol/L 100-108 N CREATININE ABG (test code = CREAABG) 2.1 mg/dL 0.8-1.3 H POC IONIZED CALCIUM (test co de = POCCA) 1.33 MMOL/L 1.12-1.32 H POC GLUCOSE (test code = POCGLU) 121 MG/DL 70-110 H HEMOGLOBIN [id number] 02:16:00* Test Item Value Reference Range Interpretation Comme nts HEMOGLOBIN ABG (test code = HGB/ABG) 7.2 G/DL 12.5-16.9 L [id number] 02:16:00* Test Item Value Reference Range Interpretation Comme nts HEMATOCRIT (test code = HCT/ABG) 21 % 37.5-50.7 L POC LACTIC [id number] 02:16:00* Test Item Value Reference Range Interpretation Comme nts POC LACTIC ACID (test code = POCLAC) 1.8 mmol/l 0.9-1.7 H LACTIC ACID [id number] 00:31:00* Test Item Value Reference Range Interpretation Comme nts LACTIC ACID REPEAT (test cod e = LACTR) 4.2 mmol/l 0.4-1.9 HH - XR ABDOMEN 1V (KUB)2023-03-05 00:00:00 [facility] : 1950 Sex: M FAX: Luci Wang [phone] [place]: St: [facility] FAX: Emery Sheehan Jr [phone] ---- Name: TEVIN NYE [facility] Gabriella Pope : 1950 Age/S: 72/M [address] [place] [address] Unit #: [id number] Loc: G.[address] [place] [address] Phys: Emery Sheehan Jr, MD Acct: [id number] Dis Date: Status: ADM IN PHONE #: [phone] Exam Date: 03/05/2023837 FAX #: [phone] Reason: ABD PAIN EXAMS: CPT CODE: [id number] ABDOMEN 1V (KUB) [id number] PROCEDURE INFORMATION: Exam: XR Abdomen Exam date and time: 03/05/2023 7:47 AM Age: 72 years old Clinical indication: Abdominal pain; Additional info: Abd pain TECHNIQUE: Imaging protocol: Radiologic exam of the abdomen. Views: Frontal supine view of the abdomen. 1 View. COMPARISON: CR XR CHEST 1V 03/05/2023 4:59 AM FINDINGS: Gastrointestinal [...] Villeda MD; Emery Sheehan Jr, MD Technologist: Mela Acevedo RT(R) Trnscrd Date/Time/By: 03/05/2023 (0851) : By: [email or web address] Orig Print D/T: S: 03/05/2023 ([id number]) PAGE 1 Signed Report- XR CHEST 1 V 2023-03-05 00:00:00 [facility] 1950 Sex: M FAX: Luci Wang [phone] [place]: St: ADM FAX: Evon Garcia [facility] [phone] -- Name: TEVIN NYE [facility] : 1950 Age/S: 72/M [address] [place] [address] Unit #: [id number] Loc: G.[address] [place] [address] Phys: Evon Andrew Physic Acct: [id number] Dis Date: Status: ADM IN PHONE #: [phone] Exam Date: 03/05/2023 0501 FAX #: [phone] Reason: Cardiac Surgery Post Op EXAMS: CPT CODE: [id number] XR CHEST 1 V [id number] PROCEDURE INFORMATION: Exam: XR Chest Exam date and time: 03/05/2023 4:59 AM Age: 72 years old Clinical indication: Other: Cardiac surgery post op TECHNIQUE: Imaging protocol: Radiologic exam of the chest. Views: 1 view. COMPARISON: CR XR CHEST 1V 03/04/2023 6:11PM FINDINGS: Tubes, catheters and devices: Mediastinal drain and left chest tube in place. Right IJsheath with tip projecting in the SVC. Lungs: Unchanged mild bibasilar airspace disease. Pleural spaces: No pleural effusion. No pneumothorax. Heart/Mediastinum: Unchanged cardiomediastinal silhouette. Bones/joints: Median sternotomy changes. IMPRESSION: 1. Unchanged mild bibasilar airspace disease. 2. Lines and tubes, as above. at 0826 Reported and signed by: Margarito Borges M.D. CC: Luci Villeda MD; Evon Andrew Technologist: Irene Gibson RT(R) Trnscrd Date/Time/By: 03/05/2023 (825) : By: [email or web address] Orig PrintD/T: S: 03/05/2023 (826) PAGE 1 Signed ReportPOC ARTERIAL BLOOD [id number] 23:12:00 * Test Item Value Reference Range Interpretation Comme nts POC ARTERIAL BLOOD GAS PH (t est code = POCPHA) 7.328 7.35-7.45 L POC ARTERIAL BLOOD GAS PCO2 (test code = MBIQEJ4A) 53.9 mmHg 35.0-45 HH POC TCO2 ARTERIAL (test code = POCTCO2) 30.2 POC ARTERIAL BLOOD GAS PO2 ( test code = URUEW0U) 72.6 mmHg 80-100.0 L POC HCO3 ARTERIAL (test code = NGLZJL6I) 28.5 MMOL/L 22.0-26.0 HH POC BASE EXCESS (test code = POCBEA) 2.4 MMOL/L -4.0-4.0 N POC O2 SATURATION (test code = POCO2S) 93.3 % 90-100 N ABG DELIVERY (test code = RACIEL) 4L HFNC ABG TEMPERATURE (test code = TEMPA) 97.7 F ABG SITE (test code = SITEA) Art Line [id number] 23:12:00* Test Item Value Reference Range Interpretation Comme nts SODIUM (test code = NA/ABG) 148 mmol/L 134-147 H [id number] 23:12:00* Test Item Value Reference Range Interpretation Comme nts POTASSIUM (test code = K/ABG) 3.9 mmol/L 3.4-5.0 N [id number] 23:12:00* Test Item Value Reference Range Interpretation Comme nts CHLORIDE (test code = CL/ABG) 108 mmol/L 100-108 N CREATININE [id number] 23:12:00* Test Item Value Reference Range Interpretation Comme nts CREATININE ABG (test code = CREAABG) 1.6 mg/dL 0.8-1.3 H HEMOGLOBIN [id number] 23:12:00* Test Item Value Reference Range Interpretation Comme nts HEMOGLOBIN ABG (test code = HGB/ABG) 7.4 G/DL 12.5-16.9 L [id number] 23:12:00* Test Item Value Reference Range Interpretation Comme nts HEMATOCRIT (test code = HCT/ABG) 22 % 37.5-50.7 L POC LACTIC [id number] 23:12:00* Test Item Value Reference Range Interpretation Comme nts POC LACTIC ACID (test code = POCLAC) 4.3 mmol/l 0.9-1.7 HH POC [id number] 23:12:00* Test Item Value Reference Range Interpretation Comme nts POC GLUCOSE (test code = POCGLU) 178 MG/DL 70-110 H CBC W/AUTO [id number] 22:39:00* Test Item Value Reference Range Interpretation Comme nts WHITE BLOOD CELL (test code = WBC) 5.2 x10 3/uL 4.5-11.0 RED BLOOD CELL (test code = RBC) 2.80 x10 6/uL 4.00-5.60 L HEMOGLOBIN (test code = HGB) 8.6 g/dL 12.5-16.9 L HEMATOCRIT (test code = HCT) 25.4 % 37.5-50.7 L MEAN CELL VOLUME (test code = MCV) 90.7 fL 81.0-99.0 MEAN CELL HGB (test code = MCH) 30.7 pg 27.0-33.0 N MEAN CELL HGB CONCETRATION (test code = MCHC) 33.9 g/dL 33.0-37.0 N RED CELL DISTRIBUTION WIDTH CV (test code = RDW) 15.6 % 11.5-14.5 H RED CELL DISTRIBUTION WIDTH SD (test code = RDW-SD) 51.9 fL 37.0-54.0 N PLATELET COUNT (test code = PLT) 92 x10 3/uL 150-400 L MEAN PLATELET VOLUME (test c ode = MPV) 10.8 fL 7.0-9.0 H NEUTROPHIL % (test code = NT%) 86.5 % 56.0-77.0 H IMMATURE GRANULOCYTE % (test code = IG%) 1.3 % 0.0-2.0 N LYMPHOCYTE % (test code = LY%) 3.3 % 14.0-32.0 L MONOCYTE % (test code = MO%) 8.7 % 4.8-9.0 N EOSINOPHIL % (test code = EO%) 0.0 % 0.3-3.7 L BASOPHIL % (test code = BA%) 0.2 % 0.0-2.0 N NUCLEATED RBC % (test code = NRBC%) 0.0 % 0-0 N NEUTROPHIL # (test code = NT#) 4.49 x10 3/uL 2.0-7.6 N IMMATURE GRANULOCYTE # (test code = IG#) 0.07 x10 3/uL 0.00-0.03 H LYMPHOCYTE # (test code = LY#) 0.17 x10 3/uL 1.0-3.8 L MONOCYTE # (test code = MO#) 0.45 x10 3/uL 0.1-0.8 N EOSINOPHIL # (test code = EO#) 0.00 x10 3/uL 0.0-0.2 N BASOPHIL # (test code = BA#) 0.01 x10 3/uL 0.0-0.2 N NUCLEATED RBC # (test code = NRBC#) 0.00 x10 3/uL 0.0-0.1 N MANUAL DIFF REQUIRED (test c ode = MDIFF) NO PLT [id number] 22:39:00* Test Item Value Reference Range Interpretation Comme nts PLATELET ESTIMATE (test code = PLTEST) 140-175 THOUSAND ADEQUATE PLATELET MORPHOLOGY (test code = PLTMORPH) NORMAL BASIC METABOLIC [id number] 22:10:00* Test Item Value Reference Range Interpretation Comme nts SODIUM (test code = NA) 151 mEq/L 134-147 H POTASSIUM (test code = K) 4.1 mEq/L 3.4-5.0 CHLORIDE (test code = CL) 110 mEq/L 100-108 H CARBON DIOXIDE (test code = CO2) 27 mEq/l 21-33 N ANION GAP (test code = GAP) 18 0-20 N GLUCOSE (test code = GLU) 212 mg/dL 70-110 H BLOOD UREA NITROGEN (test code = BUN) 29 mg/dL 7-18 H GLOMERULAR FILTRATION RATE (test code = GFR) 39.7 70-80 L The Glomerular Filtration Rate is a calculated parameterbased on serum Creatinine, patient age and sex. GFR valuesless than 60 mL/min/1.73 square meters are indicative ofChronic Kidney Disease. Values less than 15 mL/min/1.73square meters indicate Kidney failure. The calculation forGFR is based on the CKD-EPI (2020) calculation. This formulais race indifferent and is the recommended formula for GFRby the National Kidney Foundation for Adults.The GFR will not calculate if the sex is unknown or if thepatient's age is <18 years. CREATININE (test code = CREAT) 1.8 mg/dL 0.6-1.3 H CALCIUM (test code = CA) 7.6 mg/dL 8.0-10.5 L HEPATIC FUNCTION [id number] 22:10:00* Test Item Value Reference Range Interpretation Comme nts TOTAL PROTEIN (test code = PROT) 4.8 g/dL 6.4-8.2 L ALBUMIN (test code = ALB) 2.80 g/dL 3.4-5.0 L BILIRUBIN TOTAL (test code = BILT) 0.70 mg/dL 0.0-1.0 BILIRUBIN DIRECT (test code = BILD) 0.40 MG/DL 0.0-0.30 H SGOT/AST (test code = AST) 40 IUnit/L 15-37 H SGPT/ALT (test code = ALT) 11 IUnit/L 30-65 L ALKALINE PHOSPHATASE TOTAL ( test code = ALKP) 28 IUnit/L 20-125 N BILIRUBIN INDIRECT (test cod e = BILIND) 0.30 MG/DL CALCIUM [id number] 22:10:00* Test Item Value Reference Range Interpretation Comme nts CALCIUM IONIZED (test code = BIBIANA) 0.95 MMOL/L 1.09-1.30 L LACTIC [id number] 22:03:00* Test Item Value Reference Range Interpretation Comme nts LACTIC ACID (test code = LACT) 8.6 mmol/L 0.4-1.9 HH [place] [address]/04/23Nurse read back result and tech confirmed it's correct? Y POC ARTERIAL BLOOD [id number] 21:10:00* Test Item Value Reference Range Interpretation Comme nts POC ARTERIAL BLOOD GAS PH (t est code = POCPHA) 7.337 7.35-7.45 L POC ARTERIAL BLOOD GAS PCO2 (test code = ZVXRYP5J) 49.8 mmHg 35.0-45 H POC TCO2 ARTERIAL (test code = POCTCO2) 28.7 POC ARTERIAL BLOOD GAS PO2 ( test code = MOGUQ4D) 80.9 mmHg 80-100.0 N POC HCO3 ARTERIAL (test code = YWIJYX3G) 27.1 MMOL/L 22.0-26.0 H POC BASE EXCESS (test code = POCBEA) 1.0 MMOL/L -4.0-4.0 N POC O2 SATURATION (test code = POCO2S) 95.7 % 90-100 N FIO2 (test code = FIO2A) 40 % PaO2/FiO2 (test code = SHJ0JVS3) 202.25 mm/Hg ABG DELIVERY (test code = RACIEL) Adult Vent ABG VENT MODE (test code = MODEA) SPONT ABG PEEP (test code = PEEPA) 5 cmH2O ABG PRESSURE SUPPORT (test c ode = PSABG) 20 cmH2O ABG TEMPERATURE (test code = TEMPA) 96.1 F ABG SITE (test code = SITEA) Art Line BASIC METABOLIC [id number] 21:10:00* Test Item Value Reference Range Interpretation Comme nts SODIUM (test code = NA/ABG) 148 mmol/L 134-147 H POTASSIUM (test code = K/ABG) 4.0 mmol/L 3.4-5.0 N CHLORIDE (test code = CL/ABG) 108 mmol/L 100-108 N CREATININE ABG (test code = CREAABG) 1.8 mg/dL 0.8-1.3 H POC IONIZED CALCIUM (test co de = POCCA) 1.10 MMOL/L 1.12-1.32 L POC GLUCOSE (test code = POCGLU) 214 MG/DL 70-110 H HEMOGLOBIN [id number] 21:10:00* Test Item Value Reference Range Interpretation Comme nts HEMOGLOBIN ABG (test code = HGB/ABG) 7.9 G/DL 12.5-16.9 L [id number] 21:10:00* Test Item Value Reference Range Interpretation Comme nts HEMATOCRIT (test code = HCT/ABG) 23 % 37.5-50.7 L POC LACTIC [id number] 21:10:00* Test Item Value Reference Range Interpretation Comme nts POC LACTIC ACID (test code = POCLAC) 6.5 mmol/l 0.9-1.7 HH POC ARTERIAL BLOOD [id number] 20:29:00* Test Item Value Reference Range Interpretation Comme nts POC ARTERIAL BLOOD GAS PH (t est code = POCPHA) 7.342 7.35-7.45 L POC ARTERIAL BLOOD GAS PCO2 (test code = BEJJPY2J) 50.2 mmHg 35.0-45 HH POC TCO2 ARTERIAL (test code = POCTCO2) 28.7 POC ARTERIAL BLOOD GAS PO2 ( test code = KBOAU2H) 382.6 mmHg 80-100.0 HH POC HCO3 ARTERIAL (test code = SUDKLA0S) 27.2 MMOL/L 22.0-26.0 H POC BASE EXCESS (test code = POCBEA) 1.5 MMOL/L -4.0-4.0 N POC O2 SATURATION (test code = POCO2S) 99.9 % 90-100 N FIO2 (test code = FIO2A) 100 % PaO2/FiO2 (test code = UJY1BLL7) 382.60 mm/Hg ABG VENT MODE (test code = MODEA) AC ABG SITE (test code = SITEA) Art Line BASIC METABOLIC [id number] 20:29:00* Test Item Value Reference Range Interpretation Comme nts SODIUM (test code = NA/ABG) 146 mmol/L 134-147 N POTASSIUM (test code = K/ABG) 3.7 mmol/L 3.4-5.0 N CHLORIDE (test code = CL/ABG) 105 mmol/L 100-108 N CREATININE ABG (test code = CREAABG) 0.9 mg/dL 0.8-1.3 POC IONIZED CALCIUM (test co de = POCCA) 1.10 MMOL/L 1.12-1.32 L POC GLUCOSE (test code = POCGLU) 219 MG/DL 70-110 H HEMOGLOBIN [id number] 20:29:00* Test Item Value Reference Range Interpretation Comme nts HEMOGLOBIN ABG (test code = HGB/ABG) 7.7 G/DL 12.5-16.9 L [id number] 20:29:00* Test Item Value Reference Range Interpretation Comme nts HEMATOCRIT (test code = HCT/ABG) 23 % 37.5-50.7 L POC LACTIC [id number] 20:29:00* Test Item Value Reference Range Interpretation Comme nts POC LACTIC ACID (test code = POCLAC) 5.0 mmol/l 0.9-1.7 HH POC ARTERIAL BLOOD [id number] 19:38:00* Test Item Value Reference Range Interpretation Comme nts POC ARTERIAL BLOOD GAS PH (t est code = POCPHA) 7.204 7.35-7.45 LL POC ARTERIAL BLOOD GAS PCO2 (test code = SOUSLD6C) 50.2 mmHg 35.0-45 HH POC TCO2 ARTERIAL (test code = POCTCO2) 21.3 POC ARTERIAL BLOOD GAS PO2 ( test code = DWAAP9D) 125.4 mmHg 80-100.0 H POC HCO3 ARTERIAL (test code = WEKJWH9N) 19.8 MMOL/L 22.0-26.0 L POC BASE EXCESS (test code = POCBEA) -8.2 MMOL/L -4.0-4.0 L POC O2 SATURATION (test code = POCO2S) 97.9 % 90-100 N FIO2 (test code = FIO2A) 40 % PaO2/FiO2 (test code = ZTH8ESN1) 313.50 mm/Hg ABG DELIVERY (test code = RACIEL) Adult Vent ABG VENT RESP RATE (test cod e = RRA) 18 /MIN ABG TIDAL VOLUME (test code = TVA) 480 ml ABG PEEP (test code = PEEPA) 5 cmH2O ABG SITE (test code = SITEA) Art Line BASIC METABOLIC [id number] 19:38:00* Test Item Value Reference Range Interpretation Comme nts SODIUM (test code = NA/ABG) 140 mmol/L 134-147 N POTASSIUM (test code = K/ABG) 3.5 mmol/L 3.4-5.0 N CHLORIDE (test code = CL/ABG) 108 mmol/L 100-108 N CREATININE ABG (test code = CREAABG) 1.2 mg/dL 0.8-1.3 N POC IONIZED CALCIUM (test co de = POCCA) 1.21 MMOL/L 1.12-1.32 N POC GLUCOSE (test code = POCGLU) 223 MG/DL 70-110 H HEMOGLOBIN [id number] 19:38:00* Test Item Value Reference Range Interpretation Comme nts HEMOGLOBIN ABG (test code = HGB/ABG) 7.8 G/DL 12.5-16.9 L [id number] 19:38:00* Test Item Value Reference Range Interpretation Comme nts HEMATOCRIT (test code = HCT/ABG) 23 % 37.5-50.7 L POC LACTIC [id number] 19:38:00* Test Item Value Reference Range Interpretation Comme nts POC LACTIC ACID (test code = POCLAC) 3.9 mmol/l 0.9-1.7 H BASIC METABOLIC [id number] 18:27:00* Test Item Value Reference Range Interpretation Comme nts SODIUM (test code = NA) 143 mEq/L 134-147 N POTASSIUM (test code = K) 3.3 mEq/L 3.4-5.0 L CHLORIDE (test code = CL) 110 mEq/L 100-108 H CARBON DIOXIDE (test code = CO2) 22 mEq/l 21-33 N ANION GAP (test code = GAP) 14 0-20 N GLUCOSE (test code = GLU) 225 mg/dL 70-110 H BLOOD UREA NITROGEN (test code = BUN) 37 mg/dL 7-18 H GLOMERULAR FILTRATION RATE (test code = GFR) 42.6 70-80 L The Glomerular Filtration Rate is a calculated parameterbased on serum Creatinine, patient age and sex. GFR valuesless than 60 mL/min/1.73 square meters are indicative ofChronic Kidney Disease. Values less than 15 mL/min/1.73square meters indicate Kidney failure. The calculation forGFR is based on the CKD-EPI (202) calculation. This formulais race indifferent and is the recommended formula for GFRby the National Kidney Foundation for Adults.The GFR will not calculate if the sex is unknown or if thepatient's age is <18 years. CREATININE (test code = CREAT) 1.7 mg/dL 0.6-1.3 H CALCIUM (test code = CA) 8.3 mg/dL 8.0-10.5 N COMMENTS: On arrivalComment: On [id number] 18:27:00* Test Item Value Reference Range Interpretation Comme nts MAGNESIUM (test code = MAG) 2.98 mg/dL 1.80-2.40 H COMMENTS: On arrivalComment: On arrivalPROTHROMBIN [id number] 18:19:00* Test Item Value Reference Range Interpretation Comme nts PROTHROMBIN TIME PATIENT (test code = PTP) 16.4 SECONDS 9.3-12.9 H INTERNATIONAL NORMAL RATIO (test code = INR) 1.5 0.8-1.2 H TARGET INR BY INDICATION Indication INR1. Prophylaxis of venous thrombosis 2.0 - 3.0 (orthopedic surgery), Prophylaxis of venous thrombosis (other than high-risk surgery), Treatment of Deep Vein Thrombosis/Pulmonary Embolism, Prevention of systemic embolism - Tissue heart valves, Acute Myocardial Infarction (to prevent systemic embolism), Valvular heart disease, Atrial Fibrillation, Bileaflet mechanical valve in aortic position.2. Mechanical prosthetic valves (high risk), 2.5 - 3.5 Presence of Lupus Anticoagulant or Antiphospholipid Antibodies, Prevention of systemic embolism - Acute Myocardial Infarction (to prevent recurrent infarct). COMMENTS: On arrivalTHROMBOPLASTIN TIME [id number] 18:19:00* Test Item Value Reference Range Interpretation Comme [facility] THROMBOPLASTIN TIME PARTIAL (test code = PTT) 30.8 Seconds 25.0-39.5 Therapeutic Rang e: 50.4 - 88.3 Seconds Effective 12/22/2018 COMMENTS: On arrivalCBC W/AUTO [id number] 18:18:00* Test Item Value Reference Range Interpretation Comme nts WHITE BLOOD CELL (test code = WBC) 9.1 x10 3/uL 4.5-11.0 RED BLOOD CELL (test code = RBC) 2.46 x10 6/uL 4.00-5.60 L HEMOGLOBIN (test code = HGB) 7.5 g/dL 12.5-16.9 L HEMATOCRIT (test code = HCT) 23.3 % 37.5-50.7 L MEAN CELL VOLUME (test code = MCV) 94.7 fL 81.0-99.0 N MEAN CELL HGB (test code = MCH) 30.5 pg 27.0-33.0 N MEAN CELL HGB CONCETRATION (test code = MCHC) 32.2 g/dL 33.0-37.0 L RED CELL DISTRIBUTION WIDTH CV (test code = RDW) 14.4 % 11.5-14.5 N RED CELL DISTRIBUTION WIDTH SD (test code = RDW-SD) 50.0 fL 37.0-54.0 N PLATELET COUNT (test code = PLT) 109 x10 3/uL 150-400 L MEAN PLATELET VOLUME (test c ode = MPV) 10.8 fL 7.0-9.0 H NEUTROPHIL % (test code = NT%) 84.1 % 56.0-77.0 H IMMATURE GRANULOCYTE % (test code = IG%) 1.0 % 0.0-2.0 N LYMPHOCYTE % (test code = LY%) 6.5 % 14.0-32.0 L MONOCYTE % (test code = MO%) 8.1 % 4.8-9.0 N EOSINOPHIL % (test code = EO%) 0.2 % 0.3-3.7 L BASOPHIL % (test code = BA%) 0.1 % 0.0-2.0 N NUCLEATED RBC % (test code = NRBC%) 0.0 % 0-0 N NEUTROPHIL # (test code = NT#) 7.61 x10 3/uL 2.0-7.6 H IMMATURE GRANULOCYTE # (test code = IG#) 0.09 x10 3/uL 0.00-0.03 H LYMPHOCYTE # (test code = LY#) 0.59 x10 3/uL 1.0-3.8 L MONOCYTE # (test code = MO#) 0.73 x10 3/uL 0.1-0.8 N EOSINOPHIL # (test code = EO#) 0.02 x10 3/uL 0.0-0.2 N BASOPHIL # (test code = BA#) 0.01 x10 3/uL 0.0-0.2 N NUCLEATED RBC # (test code = NRBC#) 0.00 x10 3/uL 0.0-0.1 N MANUAL DIFF REQUIRED (test c ode = MDIFF) NO [facility] [id number] 18:02:00* Test Item Value Reference Range Interpretation Comme nts POC ARTERIAL BLOOD GAS PH (t est code = POCPHA) 7.280 7.35-7.45 LL POC ARTERIAL BLOOD GAS PCO2 (test code = GBKVCY3N) 43.0 mmHg 35.0-45 N POC TCO2 ARTERIAL (test code = POCTCO2) 21.5 POC ARTERIAL BLOOD GAS PO2 ( test code = EMVDP9J) 175.5 mmHg 80-100.0 H POC HCO3 ARTERIAL (test code = LGCXEX4D) 20.2 MMOL/L 22.0-26.0 L POC BASE EXCESS (test code = POCBEA) -6.5 MMOL/L -4.0-4.0 L POC O2 SATURATION (test code = POCO2S) 99.4 % 90-100 N FIO2 (test code = FIO2A) 50 % PaO2/FiO2 (test code = GYC6BIJ7) 351.00 mm/Hg ABG DELIVERY (test code = RACIEL) Adult Vent ABG VENT MODE (test code = MODEA) AC ABG VENT RESP RATE (test cod e = RRA) 18 /MIN ABG TIDAL VOLUME (test code = TVA) 480 ml ABG PEEP (test code = PEEPA) 5 cmH2O ABG SITE (test code = SITEA) Art Line SHAYLA'S TEST (test code = ALLENS) N/A BASIC METABOLIC [id number] 18:02:00* Test Item Value Reference Range Interpretation Comme nts SODIUM (test code = NA/ABG) 141 mmol/L 134-147 N POTASSIUM (test code = K/ABG) 3.3 mmol/L 3.4-5.0 L CHLORIDE (test code = CL/ABG) 107 mmol/L 100-108 N CREATININE ABG (test code = CREAABG) 1.5 mg/dL 0.8-1.3 H POC IONIZED CALCIUM (test co de = POCCA) 1.21 MMOL/L 1.12-1.32 N POC GLUCOSE (test code = POCGLU) 230 MG/DL 70-110 H HEMOGLOBIN [id number] 18:02:00* Test Item Value Reference Range Interpretation Comme nts HEMOGLOBIN ABG (test code = HGB/ABG) 6.9 G/DL 12.5-16.9 L [id number] 18:02:00* Test Item Value Reference Range Interpretation Comme nts HEMATOCRIT (test code = HCT/ABG) 20 % 37.5-50.7 L POC ARTERIAL BLOOD [id number] 17:38:00* Test Item Value Reference Range Interpretation Comme nts POC ARTERIAL BLOOD GAS PH (t est code = POCPHA) 7.323 7.35-7.45 L POC ARTERIAL BLOOD GAS PCO2 (test code = WGVCLL9O) 41.3 mmHg 35.0-45 N POC TCO2 ARTERIAL (test code = POCTCO2) 22.7 POC ARTERIAL BLOOD GAS PO2 ( test code = SEQTQ0N) 402.1 mmHg 80-100.0 HH POC HCO3 ARTERIAL (test code = RXYSKF2R) 21.4 MMOL/L 22.0-26.0 L POC BASE EXCESS (test code = POCBEA) -4.4 MMOL/L -4.0-4.0 L POC O2 SATURATION (test code = POCO2S) 100.0 % 90-100 N BASIC METABOLIC [id number] 17:38:00* Test Item Value Reference Range Interpretation Comme nts SODIUM (test code = NA/ABG) 143 mmol/L 134-147 N POTASSIUM (test code = K/ABG) 3.3 mmol/L 3.4-5.0 L CHLORIDE (test code = CL/ABG) 109 mmol/L 100-108 H CREATININE ABG (test code = CREAABG) 1.4 mg/dL 0.8-1.3 H POC IONIZED CALCIUM (test co de = POCCA) 1.22 MMOL/L 1.12-1.32 N POC GLUCOSE (test code = POCGLU) 196 MG/DL 70-110 H HEMOGLOBIN [id number] 17:38:00* Test Item Value Reference Range Interpretation Comme nts HEMOGLOBIN ABG (test code = HGB/ABG) 8.3 G/DL 12.5-16.9 L [id number] 17:38:00* Test Item Value Reference Range Interpretation Comme nts HEMATOCRIT (test code = HCT/ABG) 25 % 37.5-50.7 L POC LACTIC [id number] 17:38:00* Test Item Value Reference Range Interpretation Comme nts POC LACTIC ACID (test code = POCLAC) 3.2 mmol/l 0.9-1.7 H [id number] 17:35:00* Test Item Value Reference Range Interpretation Comme nts ACT-ISTAT (test code = ACTI) 149 SEC 74-137 H Performed by cer tified 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 [facility] [id number] 16:46:00* Test Item Value Reference Range Interpretation Comme nts ACT-ISTAT (test code = ACTI) 630 SEC 74-137 H Performed by cer tified 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 [facility] POC ARTERIAL BLOOD [id number] 16:38:00* Test Item Value Reference Range Interpretation Comme nts POC ARTERIAL BLOOD GAS PH (t est code = POCPHA) 7.383 7.35-7.45 N POC ARTERIAL BLOOD GAS PCO2 (test code = YEDOOI0Z) 39.4 mmHg 35.0-45 N POC TCO2 ARTERIAL (test code = POCTCO2) 24.7 POC ARTERIAL BLOOD GAS PO2 ( test code = BUXKR5E) 405.8 mmHg 80-100.0 HH POC HCO3 ARTERIAL (test code = EORYZV3H) 23.5 MMOL/L 22.0-26.0 N POC BASE EXCESS (test code = POCBEA) -1.5 MMOL/L -4.0-4.0 N POC O2 SATURATION (test code = POCO2S) 100.0 % 90-100 N BASIC METABOLIC [id number] 16:38:00* Test Item Value Reference Range Interpretation Comme nts SODIUM (test code = NA/ABG) 139 mmol/L 134-147 N POTASSIUM (test code = K/ABG) 4.6 mmol/L 3.4-5.0 N CHLORIDE (test code = CL/ABG) 106 mmol/L 100-108 N CREATININE ABG (test code = CREAABG) 1.4 mg/dL 0.8-1.3 H POC IONIZED CALCIUM (test co de = POCCA) 1.08 MMOL/L 1.12-1.32 L POC GLUCOSE (test code = POCGLU) 232 MG/DL 70-110 H HEMOGLOBIN [id number] 16:38:00* Test Item Value Reference Range Interpretation Comme nts HEMOGLOBIN ABG (test code = HGB/ABG) 6.2 G/DL 12.5-16.9 L [id number] 16:38:00* Test Item Value Reference Range Interpretation Comme nts HEMATOCRIT (test code = HCT/ABG) 18 % 37.5-50.7 L POC LACTIC [id number] 16:38:00* Test Item Value Reference Range Interpretation Comme nts POC LACTIC ACID (test code = POCLAC) 2.0 mmol/l 0.9-1.7 H [id number] 16:29:00* Test Item Value Reference Range Interpretation Comme nts ACT-ISTAT (test code = ACTI) 756 SEC 74-137 H Performed by cer tified 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 [facility] POC ARTERIAL BLOOD [id number] 16:13:00* Test Item Value Reference Range Interpretation Comme nts POC ARTERIAL BLOOD GAS PH (t est code = POCPHA) 7.382 7.35-7.45 N POC ARTERIAL BLOOD GAS PCO2 (test code = KDTFFT7V) 40.6 mmHg 35.0-45 N POC TCO2 ARTERIAL (test code = POCTCO2) 25.3 POC ARTERIAL BLOOD GAS PO2 ( test code = QFXHA7Q) 476.4 mmHg 80-100.0 HH POC HCO3 ARTERIAL (test code = LLMFXE9H) 24.1 MMOL/L 22.0-26.0 N POC BASE EXCESS (test code = POCBEA) -0.9 MMOL/L -4.0-4.0 N POC O2 SATURATION (test code = POCO2S) 100.0 % 90-100 N BASIC METABOLIC [id number] 16:13:00* Test Item Value Reference Range Interpretation Comme nts SODIUM (test code = NA/ABG) 140 mmol/L 134-147 N POTASSIUM (test code = K/ABG) 4.4 mmol/L 3.4-5.0 N CHLORIDE (test code = CL/ABG) 108 mmol/L 100-108 N CREATININE ABG (test code = CREAABG) 1.4 mg/dL 0.8-1.3 H POC IONIZED CALCIUM (test co de = POCCA) 1.07 MMOL/L 1.12-1.32 L POC GLUCOSE (test code = POCGLU) 245 MG/DL 70-110 H HEMOGLOBIN [id number] 16:13:00* Test Item Value Reference Range Interpretation Comme nts HEMOGLOBIN ABG (test code = HGB/ABG) 6.7 G/DL 12.5-16.9 L [id number] 16:13:00* Test Item Value Reference Range Interpretation Comme nts HEMATOCRIT (test code = HCT/ABG) 20 % 37.5-50.7 L POC LACTIC [id number] 16:13:00* Test Item Value Reference Range Interpretation Comme nts POC LACTIC ACID (test code = POCLAC) 1.7 mmol/l 0.9-1.7 N [id number] 15:57:00* Test Item Value Reference Range Interpretation Comme nts ACT-ISTAT (test code = ACTI) 967 SEC 74-137 H Performed by cer tified 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 [facility] POC ARTERIAL BLOOD [id number] 15:39:00* Test Item Value Reference Range Interpretation Comme nts POC ARTERIAL BLOOD GAS PH (t est code = POCPHA) 7.367 7.35-7.45 N POC ARTERIAL BLOOD GAS PCO2 (test code = TRKEIT6G) 43.1 mmHg 35.0-45 N POC TCO2 ARTERIAL (test code = POCTCO2) 26.1 POC ARTERIAL BLOOD GAS PO2 ( test code = FPCOE8E) 489.2 mmHg 80-100.0 HH POC HCO3 ARTERIAL (test code = KAJCYT4W) 24.7 MMOL/L 22.0-26.0 N POC BASE EXCESS (test code = POCBEA) -0.6 MMOL/L -4.0-4.0 N POC O2 SATURATION (test code = POCO2S) 100.0 % 90-100 N BASIC METABOLIC [id number] 15:39:00* Test Item Value Reference Range Interpretation Comme nts SODIUM (test code = NA/ABG) 140 mmol/L 134-147 N POTASSIUM (test code = K/ABG) 4.5 mmol/L 3.4-5.0 N CHLORIDE (test code = CL/ABG) 106 mmol/L 100-108 N CREATININE ABG (test code = CREAABG) 1.3 mg/dL 0.8-1.3 N POC IONIZED CALCIUM (test co de = POCCA) 1.02 MMOL/L 1.12-1.32 L POC GLUCOSE (test code = POCGLU) 241 MG/DL 70-110 H HEMOGLOBIN [id number] 15:39:00* Test Item Value Reference Range Interpretation Comme nts HEMOGLOBIN ABG (test code = HGB/ABG) 6.6 G/DL 12.5-16.9 L [id number] 15:39:00* Test Item Value Reference Range Interpretation Comme nts HEMATOCRIT (test code = HCT/ABG) 20 % 37.5-50.7 L POC LACTIC [id number] 15:39:00* Test Item Value Reference Range Interpretation Comme nts POC LACTIC ACID (test code = POCLAC) 0.6 mmol/l 0.9-1.7 L [id number] 15:19:00* Test Item Value Reference Range Interpretation Comme nts ACT-ISTAT (test code = ACTI) 834 SEC 74-137 H Performed by cer tified 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 [facility] POC ARTERIAL BLOOD [id number] 15:08:00* Test Item Value Reference Range Interpretation Comme nts POC ARTERIAL BLOOD GAS PH (t est code = POCPHA) 7.221 7.35-7.45 LL POC ARTERIAL BLOOD GAS PCO2 (test code = KIAMFU7N) 56.0 mmHg 35.0-45 HH POC TCO2 ARTERIAL (test code = POCTCO2) 24.7 POC ARTERIAL BLOOD GAS PO2 ( test code = FSKAP6X) 497.4 mmHg 80-100.0 HH POC HCO3 ARTERIAL (test code = QDBSKF3S) 23.0 MMOL/L 22.0-26.0 N POC BASE EXCESS (test code = POCBEA) -4.8 MMOL/L -4.0-4.0 L POC O2 SATURATION (test code = POCO2S) 100.0 % 90-100 N BASIC METABOLIC [id number] 15:08:00* Test Item Value Reference Range Interpretation Comme nts SODIUM (test code = NA/ABG) 141 mmol/L 134-147 N POTASSIUM (test code = K/ABG) 3.4 mmol/L 3.4-5.0 N CHLORIDE (test code = CL/ABG) 109 mmol/L 100-108 H CREATININE ABG (test code = CREAABG) 1.2 mg/dL 0.8-1.3 N POC IONIZED CALCIUM (test co de = POCCA) 1.15 MMOL/L 1.12-1.32 N POC GLUCOSE (test code = POCGLU) 271 MG/DL 70-110 H HEMOGLOBIN [id number] 15:08:00* Test Item Value Reference Range Interpretation Comme nts HEMOGLOBIN ABG (test code = HGB/ABG) 8.8 G/DL 12.5-16.9 L [id number] 15:08:00* Test Item Value Reference Range Interpretation Comme nts HEMATOCRIT (test code = HCT/ABG) 26 % 37.5-50.7 L POC LACTIC [id number] 15:08:00* Test Item Value Reference Range Interpretation Comme nts POC LACTIC ACID (test code = POCLAC) < 0.3 mmol/l 0.9-1.7 L [id number] 12:33:00* Test Item Value Reference Range Interpretation Comme nts ACT-ISTAT (test code = ACTI) 179 SEC 74-137 H Performed by cer tified 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 [facility] POC ARTERIAL BLOOD [id number] 12:31:00* Test Item Value Reference Range Interpretation Comme nts POC ARTERIAL BLOOD GAS PH (t est code = POCPHA) 7.390 7.35-7.45 N POC ARTERIAL BLOOD GAS PCO2 (test code = QXNJQA2A) 36.7 mmHg 35.0-45 N POC TCO2 ARTERIAL (test code = POCTCO2) 23.3 POC ARTERIAL BLOOD GAS PO2 ( test code = OERSS3Z) 449.5 mmHg 80-100.0 HH POC HCO3 ARTERIAL (test code = QKPFNZ2B) 22.2 MMOL/L 22.0-26.0 N POC BASE EXCESS (test code = POCBEA) -2.4 MMOL/L -4.0-4.0 N POC O2 SATURATION (test code = POCO2S) 100.0 % 90-100 N BASIC METABOLIC [id number] 12:31:00* Test Item Value Reference Range Interpretation Comme nts SODIUM (test code = NA/ABG) 140 mmol/L 134-147 N POTASSIUM (test code = K/ABG) 4.4 mmol/L 3.4-5.0 N CHLORIDE (test code = CL/ABG) 107 mmol/L 100-108 N CREATININE ABG (test code = CREAABG) 1.3 mg/dL 0.8-1.3 N POC IONIZED CALCIUM (test co de = POCCA) 1.15 MMOL/L 1.12-1.32 N POC GLUCOSE (test code = POCGLU) 399 MG/DL 70-110 H HEMOGLOBIN [id number] 12:31:00* Test Item Value Reference Range Interpretation Comme nts HEMOGLOBIN ABG (test code = HGB/ABG) 9.8 G/DL 12.5-16.9 L [id number] 12:31:00* Test Item Value Reference Range Interpretation Comme nts HEMATOCRIT (test code = HCT/ABG) 29 % 37.5-50.7 L POC LACTIC [id number] 12:31:00* Test Item Value Reference Range Interpretation Comme nts POC LACTIC ACID (test code = POCLAC) 0.7 mmol/l 0.9-1.7 L TROP-I HIGH [id number] 08:10:00* Test Item Value Reference Range Interpretation Comme nts TROP-I HIGH SENSITIVITY (test code = TROPIHS) 617 ng/L 0-54 HH Critical result called to Radha DEL RIO.[facility] at 0810 03/04/23Nurse read back result and tech confirmed it's correct? YCAUTION: Units of the current test methodology (ng/L) differfrom the prior test methodology (ng/mL) by a factor of 1000. 99th Percentile Upper Reference Limit (URL): Females: 34 ng/LMales: 54 ng/L In order to distinguish acute elevations of high sensitivitytroponin from other clinical conditions, the FourthUniversal Definition of Myocardial Infarction stressesclinical assessment and the demonstration of a rise and/orfall in serial troponin results above the URL. These results were obtained using [employer] IM TnIHreagent. Results from different methodologies should not becompared to one another as quantitative results and URLs mayvary by method. COMPREHENSIVE METABOLIC [id number] 04:55:00* Test Item Value Reference Range Interpretation Comme nts SODIUM (test code = NA) 140 mEq/L 134-147 N POTASSIUM (test code = K) 4.6 mEq/L 3.4-5.0 N CHLORIDE (test code = CL) 106 mEq/L 100-108 N CARBON DIOXIDE (test code = CO2) 22 mEq/l 21-33 N ANION GAP (test code = GAP) 17 0-20 N GLUCOSE (test code = GLU) 295 mg/dL 70-110 H BLOOD UREA NITROGEN (test code = BUN) 27 mg/dL 7-18 H GLOMERULAR FILTRATION RATE (test code = GFR) 58.7 70-80 L The Glomerular Filtration Rate is a calculated parameterbased on serum Creatinine, patient age and sex. GFR valuesless than 60 mL/min/1.73 square meters are indicative ofChronic Kidney Disease. Values less than 15 mL/min/1.73square meters indicate Kidney failure. The calculation forGFR is based on the CKD-EPI (2020) calculation. This formulais race indifferent and is the recommended formula for GFRby the National Kidney Foundation for Adults.The GFR will not calculate if the sex is unknown or if thepatient's age is <18 years. CREATININE (test code = CREAT) 1.3 mg/dL 0.6-1.3 N TOTAL PROTEIN (test code = PROT) 6.0 g/dL 6.4-8.2 L ALBUMIN (test code = ALB) 3.00 g/dL 3.4-5.0 L CALCIUM (test code = CA) 8.4 mg/dL 8.0-10.5 N BILIRUBIN TOTAL (test code = BILT) 0.50 mg/dL 0.0-1.0 N SGOT/AST (test code = AST) 17 IUnit/L 15-37 N SGPT/ALT (test code = ALT) 8 IUnit/L 30-65 L ALKALINE PHOSPHATASE TOTAL (test code = ALKP) 45 IUnit/L 20-125 N [id number] 04:55:00* Test Item Value Reference Range Interpretation Comme nts MAGNESIUM (test code = MAG) 1.76 mg/dL 1.80-2.40 L UA RFLX MICR CULT IF [id number] 04:55:00* Test Item Value Reference Range Interpretation Comme nts UA COLOR (test code = COLU) YELLOW YEL/STRAW UA APPEARANCE (test code = APPU) CLEAR CLEAR UA GLUCOSE DIPSTICK (test co de = DGLUU) NEGATIVE NEGATIVE UA BILIRUBIN DIPSTICK (test code = BILU) NEGATIVE NEGATIVE UA KETONE DIPSTICK (test cod e = KETU) 1+ NEGATIVE A UA SPECIFIC GRAVITY (test co de = SGU) 1.043 1.005-1.030 H UA BLOOD DIPSTICK (test code = KYLE) NEGATIVE NEGATIVE UA PH DIPSTICK (test code = LITA) 5.0 5.0-7.0 N UA PROTEIN DIPSTICK (test co de = PROU) 3+ NEGATIVE A UA UROBILINIOGEN DIPSTICK (test code = URO) 0.2 mg/dL 0.2-1.0 UA NITRITE DIPSTICK (test co de = SUKUMAR) NEGATIVE NEGATIVE UA LEUKOCYTE ESTERASE DIPSTI CK (test code = LEUU) NEGATIVE NEGATIVE UA WBC (test code = WBCU) 0-3 WBC/HPF 0-3 UA RBC (test code = RBCU) 0-3 RBC/HPF 0-3 UA WBC NO REFLEX (test code = WBCUCL) 0-3 WBC/HPF 0-3 UA BACTERIA (test code = BACU) NONE SEEN /HPF NONE SEEN UA SQUAMOUS CELLS (test code = SQU) NONE SEEN /HPF NONE SEEN UA MUCUS (test code = MUCU) TRACE /LPF NONE SEEN Indication for culture: Flank PainSpecimen Description: CLEAN CATCHCOVID 19 Asymptomatic IH [id number] 04:07:00* Test Item Value Reference Range Interpretation Comme nts COVID 19 Asymptomatic IH AG (test code = COVNONPUIAG) Negative Negative A negative resul t is presumptive and should be confirmedwith an FDA authorized molecular assay, if necessary forpatient management.A positive result does not rule out co-infections withother pathogens.This test detects both viable (live) and non-viable,SARS-CoV, and SARS-CoV-2. Test performance depends on theamount of virus (antigen) in the sample.This test has not been FDA cleared or approved; the test hasbeen authorized by FDA under an Emergency Use Authorization(EUA) for use by laboratories certified under the CLIA thatmeet the requirements to perform moderate, high or waivedcomplexity tests. THROMBOPLASTIN TIME [id number] 03:44:00* Test Item Value Reference Range Interpretation Comme nts THROMBOPLASTIN TIME PARTIAL (test code = PTT) 80.6 Seconds 25.0-39.5 H Therapeutic Rang e: 50.4 - 88.3 Seconds Effective 12/22/2018 COMMENTS: DRAW PTT 6 HOURS AFTER INITIATION OF HEPARINCBC W/AUTO [id number] 03:27:00* Test Item Value Reference Range Interpretation Comme nts WHITE BLOOD CELL (test code = WBC) 5.4 x10 3/uL 4.5-11.0 N RED BLOOD CELL (test code = RBC) 3.36 x10 6/uL 4.00-5.60 L HEMOGLOBIN (test code = HGB) 10.4 g/dL 12.5-16.9 L HEMATOCRIT (test code = HCT) 31.4 % 37.5-50.7 L MEAN CELL VOLUME (test code = MCV) 93.5 fL 81.0-99.0 N MEAN CELL HGB (test code = MCH) 31.0 pg 27.0-33.0 N MEAN CELL HGB CONCETRATION (test code = MCHC) 33.1 g/dL 33.0-37.0 N RED CELL DISTRIBUTION WIDTH CV (test code = RDW) 14.4 % 11.5-14.5 N RED CELL DISTRIBUTION WIDTH SD (test code = RDW-SD) 48.8 fL 37.0-54.0 N PLATELET COUNT (test code = PLT) 117 x10 3/uL 150-400 L MEAN PLATELET VOLUME (test c ode = MPV) 10.6 fL 7.0-9.0 H NEUTROPHIL % (test code = NT%) 90.9 % 56.0-77.0 H IMMATURE GRANULOCYTE % (test code = IG%) 0.9 % 0.0-2.0 N LYMPHOCYTE % (test code = LY%) 5.0 % 14.0-32.0 L MONOCYTE % (test code = MO%) 2.8 % 4.8-9.0 L EOSINOPHIL % (test code = EO%) 0.2 % 0.3-3.7 L BASOPHIL % (test code = BA%) 0.2 % 0.0-2.0 N NUCLEATED RBC % (test code = NRBC%) 0.0 % 0-0 N NEUTROPHIL # (test code = NT#) 4.95 x10 3/uL 2.0-7.6 N IMMATURE GRANULOCYTE # (test code = IG#) 0.05 x10 3/uL 0.00-0.03 H LYMPHOCYTE # (test code = LY#) 0.27 x10 3/uL 1.0-3.8 L MONOCYTE # (test code = MO#) 0.15 x10 3/uL 0.1-0.8 N EOSINOPHIL # (test code = EO#) 0.01 x10 3/uL 0.0-0.2 N BASOPHIL # (test code = BA#) 0.01 x10 3/uL 0.0-0.2 N NUCLEATED RBC # (test code = NRBC#) 0.00 x10 3/uL 0.0-0.1 N MANUAL DIFF REQUIRED (test c ode = MDIFF) NO COMMENTS: Daily while on Heparin- CT HEAD/BRAIN W/O [id number] 00:00[facility]00 [facility] 1950 Sex: M Name: TVEIN NYE [facility] : 1950 Age/S: 72 / M [address] [facility] Unit #: [id number] Loc: [place] [address] Phys: Noé Madrid MD Acct: [id number] Dis Date: Status: ADM IN PHONE #: [phone] Exam Date: 03/04/20231932 FAX #: [phone] Reason: MINIMAL NEURO ACTIVITY Report Has Been Amended EXAMS: CPT CODE: [id number] CT HEAD/BRAIN W/O CONT 56269 Addendum - 03/04/2023 SIGNED 03/04/2023 ADDENDUM: [id number] CT/CTHDBRWO Findings have been communicated by telephone to Vaishnavi, the nurse taking care of the patient, at 7:44 p.m. on 03/04/2023. at 1944 Reported and signed by: Carisa coronado M.D. Report PROCEDURE INFORMATION: Exam: CT Head Without Contrast Exam date and time: 03/04/2023 7:26 PM Age: 72 years old Clinical indication: Stroke-like symptoms; Other: Minimal neuro activityTECHNIQUE: Imaging protocol: Computed tomography of the head without [...] months prior to the current study. COMPARISON: US DUP EXTRACRANIAL SCOTTY 03/03/2023 11:54 PM FINDINGS: Brain: No hemorrhage, mass ormass effect is seen. The nj- white junction is intact. There is scmy-sr-yqslkwar patchy low attenuation in the cerebral white matter, likely reflecting chronic small vessel ischemic disease. Small lacunar infarcts are present in the right caudate head and anterior limb left internal capsule. Thereare probably several old lacunar infarcts in the jose bilaterally. One on the left is small. PAGE 1 Signed Report (CONTINUED) Name: TEVIN NYE [facility] Gabriella Pope : 1950 Age/S: 72 / M [address] [place], [place] [address] Unit #: [id number] Loc: [place] [address] Phys: Noé Madrid MD Acct: [id number] Dis Date: Status: ADM IN PHONE #: [phone] Exam Date: 03/04/20231932 FAX #: [phone] Reason: MINIMAL NEURO ACTIVITY Report Has Been Amended EXAMS: CPT CODE: [id number] CT HEAD/BRAINW/O CONT 68506 (Continued) Another on the right is large. [...] Bones/joints: Unremarkable. No acute fracture. Soft tissues: Unremarkab le. IMPRESSION: 1. No acute intracranial abnormality. 2. Chronic ischemic changes are present as described. 3. There is mild acute and chronic paranasal sinus disease. ASSESSMENT: ASPECTS ([place] Stroke Program Early CT Score) is 10. at 1940 Reported and signed by: Carisa Schuler M.D. CC: Noé Madrid MD; Luci Villeda MD Technologist:Nani Birmingham RT(R)(CT) CTDI: DLP: Trnscb Date/Time: 03/04/2023 (1939) BuckJYA Orig Print D/T: S: 03/04/2023 (1939) PAGE 2 Signed Report- XR CHEST 1 [id number] 00:00:00 [facility] : 1950 Sex: M FAX: Luci Wang [phone] [place]: St: ADM FAX: Arnold KamranEvon Veloz [facility] [phone] - Name: TIGRE NYE : 1950 Age/S: 72/M [address] [place] [address] Unit #: [id number] Loc: [address] [address] Phys: Evon Andrew Physic Acct: [id number] Dis Date: Status: ADM IN PHONE #:[phone] Exam Date: 03/04/20231821 FAX #: [phone] Reason: Cardiac Surgery Post Op EXAMS: CPT CODE: [id number] XR CHEST 1 V 38049 PROCEDURE INFORMATION: Exam: XR Chest Exam date and time: 03/04/2023 6:11 PM Age: 72 years old Clinical indication: [...] pneumothorax. Heart/Mediastinum: Heart size is within normal limits. There is mild tortuosity of the thoracic aorta.. Bones/joints: Median sternotomy wires are seen. IMPRESSION: 1. Lines and tubes are in satisfactory position. 2.St. Mild bibasilar atelectasis. ernal wires are seen at 1936 Reported and signed by: Carisa Schuler M.D. CC: Samia Carrillo MD; Evon Andrew Technologist: RT Saleem Bae (R) Date/Time/By: 03/04/2023 (1935) : By: Jose Juan Carter Print D/T: S: 03/04/2023 (1936) PAGE 1 Signed Report- XR CHEST 1 [id number] 00:00:00 [facility] : 1950 Sex: M FAX: Luci Wang [phone] [place]: St: [facility] FAX: Emery Sheehan Jr [phone] ---- Name: TEVIN NYE [facility] : 1950 Age/S: 72/M [address] [place] [address] Unit #: [id number] Loc: [place] [address] Phys: Emery Sheehan Jr, MD Acct: [id number] Dis Date: Status: ADM IN PHONE #: [phone] Exam Date: 03/04/2023 06 FAX #: [phone] Reason: DAILY IN CVICU EXAMS: CPT CODE: [id number] XR CHEST 1 V 92108 PROCEDURE INFORMATION: Exam: XR Chest Exam date and time: 03/04/2023 5:06 AM Age: 72 years old Clinical indication: Other: Daily in cvicu TECHNIQUE: Imaging protocol: Radiologic exam of the chest. Views: 1 view. COMPARISON: CTA CHEST, CTA CHEST 03/03/2023 11:42 PM FINDINGS: Lungs: Emphysema. Nonspecific bibasilar opacities. The upper and mid lung tidwell are clear. Pleuralspaces: No large pleural effusion. No pneumothorax. Heart/Mediastinum: No cardiomegaly. Vasculature: Atherosclerotic calcifications. Bones/joints: No acute fracture. IMPRESSION: Mild bibasilar opacities which may represent atelectasis or infiltrate. Electronically Signed by Clarissa Spangler on03/04/2023 at 0806 Reported and signed by: Bon Spangler M.D. CC: Luci Villeda MD; Emery Sheehan Jr, MD Technologist: RT Perla(R) Trnscrd Date/Time/By: 03/04/2023 (805) : By: [email or web address] Orig Print D/T: S: 03/04/2023 (806) PAGE 1 Signed Report- [facility] [id number] 00:00:00 [facility] TEVIN [facility] : 1950 Sex: M Name: TEVIN NYE [facility] Gabriella Pope : 1950 Age/S: 72 / M [address] [place] [address] Unit #: [id number] Loc: [place] [address] Phys: Sharmila Alan Acct: [id number] Dis Date: Status: ADM IN PHONE #: [phone] Exam Date: 03/04/2023712 FAX #: [phone] Reason: Swelling, R/O DVT EXAMS: CPT CODE: [id number] DUP VEIN SCOTTY 18920 PROCEDURE INFORMATION: Exam: US Duplex Lower Extremity [...] lower extremity veins. COMPARISON: US DUP VEIN BIL03/04/2023 12:07 AM FINDINGS: Right deep veins: Unremarkable. The common femoral, femoral, proximal profunda femoral and popliteal veins are patent without thrombus. Normal Doppler waveforms. Normal compressibility and/or augmentation response. Right superficial veins: Saphenofemoral junction is patent without thrombus. Left deep veins: Unremarkable. The common femoral, femoral, proximal profundafemoral and popliteal veins are patent without thrombus. Normal Doppler waveforms. Normal compressibility and/or augmentation response. Left superficial veins: Saphenofemoral junction is patent without thrombus. Soft tissues: Unremarkable. IMPRESSION: No evidence of deep vein thrombosis. at 0804 Reported and signed by: Ezekiel Esteves M.D. CC: Sharmila Alan; Luci Villeda MD Technologist: Nancy Márquez RDMS(AB)(OB) Trnscb Date/Time: 03/04/2023 (803) [email or web address] Orig Print D/T: S: 03/04/2023 (804) Probe: PAGE 1 Signed Report- CT ANGIO [id number] 00:00:00[facility] GABRIELLA POPEName: TEVIN NYE : 1950 Sex: M Name: TEVIN NYE [facility] [place] : 1950 Age/S: 72 / M [address] [place] [address] Blvd Unit #: [id number] Loc: [place] [address] Phys: Sharmila Alan Acct: [id number] Dis Date: Status: ADM IN PHONE #: [phone] Exam Date: 03/03/20232341 FAX #: [phone] Reason: R/O PE EXAMS: CPT CODE: [id number] CT ANGIO CHEST 28512 PROCEDURE INFORMATION: Exam: CTA Chest With Contrast Exam date and time: 03/03/2023 11:42 PM Age: 72 years old Clinical indication: Cough and shortness of breath; concern forpulmonary embolism. TECHNIQUE: Imaging protocol: Computed tomographic angiography of the chest withcontrast. Exam focused on the arteries. 3D rendering (Not supervised by radiologist): MIP and/or 3Dreconstructed images were created by the technologist. Radiation optimization: All CT scans at [facility] use at least one of these dose optimization techniques: automated exposure control; mA and/or kV adjustment per patient size (includes targeted exams where dose is matched to clinical indicat ion); or iterative reconstruction. Contrast material: ISO 300; Contrast volume: 100 ml; Contrast route: INTRAVENOUS (IV); REPORTING DATA: Count of CT and Cardiac NM exams in prior 12 months: This patient has received 0 known CTs and 0 known cardiac nuclear medicine studies in the 12 months prior tothe current study. COMPARISON: No relevant prior studies [...] the chest, PET/CT, or tissue sampling should beperformed in 3 months. PAGE 1 Signed Report (CONTINUED) Name: TEVIN NYE [facility] : 1950 Age/S: 72 / M [address] [place] [address] Unit #: [id number] Loc: [place] [address] Phys: Sharmila Alan Acct: [id number] Dis Date: Status: ADM IN PHONE #: [phone] Exam Date: 03/03/2023 2342 FAX #: [phone] Reason: R/O PE EXAMS: CPT CODE: [id number] CT ANGIO CHEST 83998 (Continued) at 0150 Reported and signed by: Alvino Roman M.D. CC: Sharmila Alan; Luci Villeda MD Technologist:Barbra Emmanuel, RT(R) CTDI: DLP: Trnscb Date/Time: 03/04/2023 (149) [email or web address] Orig Print D/T: S: 03/04/2023 (149) PAGE 2 Signed Report- DUP VEIN [id number] 00:00:00 [facility] 1950 Sex: M Name: TEVIN NYE [facility] Gabriella Pope : 1950 Age/S: 72 / M [address] [place] [address] Unit #: [id number] Loc: [place] [address] Phys: Luci Villeda MD Acct: [id number] Dis Date: Status:ADM IN PHONE #: [phone] Exam Date: 03/04/202320 FAX #: [phone] Reason: Cardiac Surgery Pre Op EXAMS: CPT CODE: [id number] DUP VEIN SCOTTY 67102 PROCEDURE INFORMATION: Exam: US Duplex Lower Extremity [...] studies available. FINDINGS: Right superficial veins: Normal Dopplerwaveforms. Normal compressibility. Greater saphenous vein is patent. Right great saphenous vein-upper thigh: 4.2 mm Right great saphenous vein-mid thigh: 2.5 mm Right great saphenous vein-lower thigh: 1.9 mm Right great saphenous vein-upper le.7 mm Right great saphenous vein-mid le.6 mm Right great saphenous vein- lower le.3 mm Left superficial veins: Normal Doppler waveforms. Normal co mpressibility. Greater saphenous vein is patent. Left great saphenous vein-upper thigh: 2.5 mm Leftgreat saphenous vein-mid thigh: 3.1 mm Left great saphenous vein-lower thigh: 2.2 mm Left great saphenous vein-upper le.2 mm Left great saphenous vein-mid le.6 mm Left great saphenous vein-lower le.5 mm Soft tissues: Unremarkable. IMPRESSION: Greater saphenous veins are patent. Vein map ping as described. at 0206 Reported and signed by: Morales Villegas M.D. CC: Luci Villeda MD Technologist: Arcelia Dawn RDMS(AB)(OB) Trnscb Date/Time: 03/04/2023 (205) [email or web address] Orig Print D/T: S: 03/04/2023 (205) Probe: PAGE 1 Signed Report- DUP EXTRACRANIAL [id number] 00:00:00 [facility] 1950 Sex: M Name: TEVIN NYE [facility] : 1950 Age/S: 72 / M [address] [place] [address] Unit #: [id number] Loc: [place] [address] Phys: Luci Villeda MD Acct: [id number] Dis Date: Status: ADM IN PHONE #: [phone] Exam Date: 03/03/202320 FAX #: [phone] Reason: Cardiac Surgery Pre Op EXAMS: CPT CODE: [id number] DUP EXTRACRANIAL SCOTTY 59249 PROCEDURE INFORMATION: Exam: US DuplexBilateral Extracranial Arteries; Complete; Carotid Arteries Exam date and time: 03/03/2023 11:54 PMAge: 72 years old Clinical indication: Screening exam; Cardiac surgery pre op TECHNIQUE: Imaging protocol: Real-time duplex ultrasound scan of the bilateral extracranial arteries combining nj scale, color Doppler and spectral waveform analysis with image documentation. Complete exam. Exam focusedon the carotid arteries. COMPARISON: CTA CHEST, CTA CHEST 03/03/2023 11:42 PM FINDINGS: Right commoncarotid artery: Mild plaque at the right common carotid artery bifurcation. Peak systolic velocity 100.3 cm/s. No occlusion or stenosis. Waveforms are normal. Right internal carotid artery: Peak systolic velocity 106.2 cm/s. No occlusion or stenosis. Waveforms are [...] the origin. Left vertebral artery: Antegrade flow. IMPRESSION: 1. Severe stenosis of the left proximal internal carotid artery by NASCETcriteria. Consider CTA of the neck for complete assessment. 2. No significant stenosis within the proximal right internal carotid artery. REFERENCES: The degree of internal carotid artery stenosis isbased on criteria defined by the IAC Vascular Testing criteria. Normal is no stenosis. Mild is lessthan 50% stenosis. Moderate is 50-69% stenosis. Severe is greater than 69% stenosis to near occlusion. Near occlusion is a markedly narrowed lumen. Total occlusion is no detectable patent lumen. PAGE1 Signed Report (CONTINUED) Name: TEVIN NYE [facility] : 1950 Age/S: 72 / M [address] [place] [address] Unit #: [id number] Loc: [place] [address] Phys: Luci Villeda MD Acct: [id number] Dis Date: Status: ADM IN PHONE #: [phone] Exam Date: 03/03/202320 FAX #: [phone] Reason: Cardiac Surgery Pre Op EXAMS: CPT CODE: [id number] DUP EXTRACRANIAL SCOTTY 99242 (Continued) at 0217 Reported and signed by: Alvino Roman M.D. CC: Luci Villeda MD Technologist: Arcelia Dawn RDMS(AB)(OB) Trnscb Date/Time:03/04/2023 (216) [email or web address] Orig Print D/T: S: 03/04/2023 (217) Probe: PAGE 2 Signed ReportB- TYPE NATRIURETIC [id number] 22:13:00* Test Item Value Reference Range Interpretation Comme nts B-TYPE NATRIURETIC PEPTIDE ( test code = BNP) 802.0 PG/ML 0-100 H HGBA1C%2023-03-03 21:50:00* Test Item Value Reference Range Interpretation Comme nts HGBA1C% (test code = HGBA1C%) 7.1 %A1C 4.8-6.0 H COMPREHENSIVE METABOLIC [id number] 21:43:00* Test Item Value Reference Range Interpretation Comme nts SODIUM (test code = NA) 142 mEq/L 134-147 N POTASSIUM (test code = K) 4.2 mEq/L 3.4-5.0 N CHLORIDE (test code = CL) 109 mEq/L 100-108 H CARBON DIOXIDE (test code = CO2) 28 mEq/l 21-33 N ANION GAP (test code = GAP) 9 0-20 N GLUCOSE (test code = GLU) 148 mg/dL 70-110 H BLOOD UREA NITROGEN (test code = BUN) 24 mg/dL 7-18 H GLOMERULAR FILTRATION RATE (test code = GFR) 64.7 70-80 L The Glomerular Filtration Rate is a calculated parameterbased on serum Creatinine, patient age and sex. GFR valuesless than 60 mL/min/1.73 square meters are indicative ofChronic Kidney Disease. Values less than 15 mL/min/1.73square meters indicate Kidney failure. The calculation forGFR is based on the CKD-EPI (2020) calculation. This formulais race indifferent and is the recommended formula for GFRby the National Kidney Foundation for Adults.The GFR will not calculate if the sex is unknown or if thepatient's age is <18 years. CREATININE (test code = CREAT) 1.2 mg/dL 0.6-1.3 N TOTAL PROTEIN (test code = PROT) 6.4 g/dL 6.4-8.2 N ALBUMIN (test code = ALB) 3.20 g/dL 3.4-5.0 L CALCIUM (test code = CA) 8.5 mg/dL 8.0-10.5 N BILIRUBIN TOTAL (test code = BILT) 0.50 mg/dL 0.0-1.0 N SGOT/AST (test code = AST) 15 IUnit/L 15-37 N SGPT/ALT (test code = ALT) < 7 IUnit/L 30-65 L ALKALINE PHOSPHATASE TOTAL (test code = ALKP) 48 IUnit/L 20-125 N LIPID PROFILE (CORONARY RISK)2023-03-03 21:43:00* Test Item Value Reference Range Interpretation Comme nts TRIGLYCERIDES (test code = TRIG) 170 mg/dL 40-150 H CHOLESTEROL (test code = CHOL) 100 mg/dL <200 CHOLESTEROL/HDL RATIO (test code = CHOLHDL) 4.74 RATIO 3.43-4.97 N RISK ASSOCIATED WITH CHOL/HDL RATIOS: RISK MALE FEMALE1/2 AVERAGE 3.43 3.27AVERAGE 4.97 4.442X AVERAGE 9.55 7.053X AVERAGE 23.39 11.04 NOTE THAT THE REFERENCE VALUE IS RELATEDTO RISK LEVELS RECOMMENDED BY THE NATL.HEART, LUNG, AND BLOOD INST. HDL CHOLESTEROL (test code = HDL) 21.1 mg/dL 32-72 L LIPOPROTEIN LDL (test code = LDL) 53.0 mg/dL 0-100 N <100 [id number] 0-129 NEAR OPTIMAL/ABOVE [id number] HIGH>CC=507 VERY HIGH*Guidelines provided by the National Cholesterol EducationProgram Adult Treatment Panel III PROTHROMBIN [id number] 21:40:00* Test Item Value Reference Range Interpretation Comme nts PROTHROMBIN TIME PATIENT (test code = PTP) 14.4 SECONDS 9.3-12.9 H INTERNATIONAL NORMAL RATIO (test code = INR) 1.3 0.8-1.2 H TARGET INR BY INDICATION Indication INR1. Prophylaxis of venous thrombosis 2.0 - 3.0 (orthopedic surgery), Prophylaxis of venous thrombosis (other than high-risk surgery), Treatment of Deep Vein Thrombosis/Pulmonary Embolism, Prevention of systemic embolism - Tissue heart valves, Acute Myocardial Infarction (to prevent systemic embolism), Valvular heart disease, Atrial Fibrillation, Bileaflet mechanical valve in aortic position.2. Mechanical prosthetic valves (high risk), 2.5 - 3.5 Presence of Lupus Anticoagulant or Antiphospholipid Antibodies, Prevention of systemic embolism - Acute Myocardial Infarction (to prevent recurrent infarct). COMMENTS: IF NOT ALREADY DONE WITHIN LAST 24 HOURSTHROMBOPLASTIN TIME PARTIAL 2023-03-03 21:40:00* Test Item Value Reference Range Interpretation Comme nts THROMBOPLASTIN TIME PARTIAL (test code = PTT) 39.0 Seconds 25.0-39.5 N Therapeutic Rang e: 50.4 - 88.3 Seconds Effective 12/22/2018 COMMENTS: IF NOT ALREADY DONE WITHIN LAST 24 HOURSCBC W/AUTO [id number] 21:29:00* Test Item Value Reference Range Interpretation Comme nts WHITE BLOOD CELL (test code = WBC) 5.0 x10 3/uL 4.5-11.0 N RED BLOOD CELL (test code = RBC) 3.45 x10 6/uL 4.00-5.60 L HEMOGLOBIN (test code = HGB) 10.6 g/dL 12.5-16.9 L HEMATOCRIT (test code = HCT) 32.5 % 37.5-50.7 L MEAN CELL VOLUME (test code = MCV) 94.2 fL 81.0-99.0 N MEAN CELL HGB (test code = MCH) 30.7 pg 27.0-33.0 N MEAN CELL HGB CONCETRATION (test code = MCHC) 32.6 g/dL 33.0-37.0 L RED CELL DISTRIBUTION WIDTH CV (test code = RDW) 14.3 % 11.5-14.5 N RED CELL DISTRIBUTION WIDTH SD (test code = RDW-SD) 48.4 fL 37.0-54.0 N PLATELET COUNT (test code = PLT) 118 x10 3/uL 150-400 L MEAN PLATELET VOLUME (test c ode = MPV) 11.2 fL 7.0-9.0 H NEUTROPHIL % (test code = NT%) 84.2 % 56.0-77.0 H IMMATURE GRANULOCYTE % (test code = IG%) 0.2 % 0.0-2.0 N LYMPHOCYTE % (test code = LY%) 6.4 % 14.0-32.0 L MONOCYTE % (test code = MO%) 7.8 % 4.8-9.0 N EOSINOPHIL % (test code = EO%) 1.0 % 0.3-3.7 N BASOPHIL % (test code = BA%) 0.4 % 0.0-2.0 N NUCLEATED RBC % (test code = NRBC%) 0.0 % 0-0 N NEUTROPHIL # (test code = NT#) 4.18 x10 3/uL 2.0-7.6 N IMMATURE GRANULOCYTE # (test code = IG#) 0.01 x10 3/uL 0.00-0.03 N LYMPHOCYTE # (test code = LY#) 0.32 x10 3/uL 1.0-3.8 L MONOCYTE # (test code = MO#) 0.39 x10 3/uL 0.1-0.8 N EOSINOPHIL # (test code = EO#) 0.05 x10 3/uL 0.0-0.2 N BASOPHIL # (test code = BA#) 0.02 x10 3/uL 0.0-0.2 N NUCLEATED RBC # (test code = NRBC#) 0.00 x10 3/uL 0.0-0.1 N MANUAL DIFF REQUIRED (test c ode = MDIFF) NO COMMENTS: IF NOT ALREADY DONE WITHIN LAST 24 HOURSXR CHEST 1 [id number] 13:08:01EXAM: XR CHEST 1 VW HISTORY: ct removal COMPARISON: None. FINDINGS: The heart and great vessels arenormal and the lungs are well expanded andclear.A [...] slightlyelevated. Subcutaneous emphysema is diminishing on the right.[facility]2020-02-17 12:41:00* Test Item Value Reference Range Interpretation Comme nts POCT GLU (test code = 6699369316) 117 mg/dL 70-110 H Lab Interpretation (test cod e = 10626-7) Abnormal [facility] METABOLIC PANEL (NA, K, CL, CO2, GLUCOSE, BUN, CREATININE, CA)2020-02-17 09:49:00* Test Item Value Reference Range Interpretation Comme nts NA (test code = 6897738339) 138 mmol/L 135-145 K (test code = 6700849903) 4.9 mmol/L 3.5-5 CL (test code = 1376776291) 106 mmol/L 98-108 CO2 TOTAL (test code = 1916704486) 27 mmol/L 23-31 AGAP (test code = 2034405156) 2-16 BUN (test code = 1914991695) 38 mg/dL 7-23 H GLUCOSE (test code = 7649522414) 203 mg/dL 70-110 H CREATININE (test code = 9601124939) 1.44 mg/dL 0.6-1.25 H CALCIUM (test code = 5859948955) 8.7 mg/dL 8.6-10.6 eGFR Calculation (Non-) (test code = 2563382717) mL/min/1.73m2 eGFR Calculation () (test code = 7409396407) mL/min/1.73m2 LOREN (test code = LOREN) Association of [...] or abnormalities in imaging tests). Lab Interpretation (test code = 70702-9) Abnormal [facility] WITH [id number] 09:27:00* Test Item Value Reference Range Interpretation Comme nts WBC (test code = 6690-2) See_Comment [Automated SaveFans!a ge] The system which generated this result transmitted reference range: 4.20 - 10.70 10*3/?L. The reference range was not used to interpret this result as normal/abnormal. RBC (test code = 789-8) See_Comment L [Automated SaveFans!a ge] The system which generated this result transmitted reference range: 4.26 - 5.52 10*6/?L. The reference range was not used to interpret this result as normal/abnormal. HGB (test code = 718-7) 11.2 g/dL 12.2-16.4 L HCT (test code = 4544-3) 33.2 % 38.4-49.3 L MCV (test code = 787-2) 91.5 fL 81.7-95.6 MCH (test code = 785-6) 30.9 pg 26.1-32.7 MCHC (test code = 786-4) 33.7 g/dL 31.2-35 RDW-SD (test code = 13777-1) 46.7 fL 38.5-51.6 RDW-CV (test code = 788-0) 14.1 % 12.1-15.4 PLT (test code = 777-3) See_Comment [Automated SaveFans!a ge] The system which generated this result transmitted reference range: 150 - 328 10*3/?L. The reference range was not used to interpret this result as normal/abnormal. MPV (test code = 67817-8) 10.3 fL 9.8-13 NRBC/100 WBC (test code = 4540686492) See_Comment [Automated Freezing Point ssage] The system which generated this result transmitted reference range: 0.0 - 10.0 /100 WBCs. The reference range was not used to interpret this result as normal/abnormal. NRBC x10^3 (test code = 7564149914) <0.01 See_Comment [Automated messa ge] The system which generated this result transmitted reference range: 10*3/?L. The reference range was not used to interpret this result as normal/abnormal. GRAN MAT (NEUT) % (test code = 770-8) 79.4 % IMM GRAN % (test code = 5507325678) 0.20 % LYMPH % (test code = 736-9) 11.2 % MONO % (test code = 5905-5) 6.7 % EOS % (test code = 713-8) 1.9 % BASO % (test code = 706-2) 0.6 % GRAN MAT x10^3(ANC) (test code = 5950259214) 4.24 10*3/uL 1.99-6.95 IMM GRAN x10^3 (test code = 9541350991) <0.03 0-0.06 LYMPH x10^3 (test code = 731-0) 0.60 10*3/uL 1.09-3.23 L MONO x10^3 (test code = 742-7) 0.36 10*3/uL 0.36-1.02 EOS x10^3 (test code = 711-2) 0.10 10*3/uL 0.06-0.53 BASO x10^3 (test code = 704-7) 0.03 10*3/uL 0.01-0.09 Lab Interpretation (test code = 70776-3) Abnormal [facility] GLUCOSE (AUTOMATED)2020-02-17 09:04:00* Test Item Value Reference Range Interpretation Comme nts POCT GLU (test code = 2161510743) 210 mg/dL 70-110 H Lab Interpretation (test cod e = 30319-3) Abnormal [facility] GLUCOSE (AUTOMATED)2020-02-17 05:34:00* Test Item Value Reference Range Interpretation Comme nts POCT GLU (test code = 1506355483) 251 mg/dL 70-110 H Lab Interpretation (test cod e = 17080-0) Abnormal [facility] GLUCOSE (AUTOMATED)2020-02-17 01:56:00* Test Item Value Reference Range Interpretation Comme nts POCT GLU (test code = 5183917823) 190 mg/dL 70-110 H Lab Interpretation (test cod e = 75067-3) Abnormal [facility] GLUCOSE (AUTOMATED)2020-02-17 01:06:00* Test Item Value Reference Range Interpretation Comme nts POCT GLU (test code = 1762159421) 224 mg/dL 70-110 H Lab Interpretation (test cod e = 86390-2) [facility]normal [facility] FallsGLYCOSYLATED HEMOGLOBIN (A1C)2020-02-17 00:01:00* Test Item Value Reference Range Interpretation Comme nts HGB A1C (test code = 4548-4) 6.8 % 4-6 H Lab Interpretation (test cod e = 68270-4) Abnormal [facility] GLUCOSE (AUTOMATED)2020-02-16 21:07:00* Test Item Value Reference Range Interpretation Comme nts POCT GLU (test code = 4977716701) 303 mg/dL 70-110 H Lab Interpretation (test cod e = 60379-4) Abnormal [facility] GLUCOSE (AUTOMATED)2020-02-16 16:42:00* Test Item Value Reference Range Interpretation Comme nts POCT GLU (test code = 7153372033) 282 mg/dL 70-110 H Lab Interpretation (test cod e = 71431-6) [facility]normal [facility] FallsXR [facility] 1 [id number] 13:17:11EXAM: XR CHEST 1 VW HISTORY: ptx COMPARISON: None. FINDINGS: The heart and great vessels are normaland the lungs are satisfactorilyexpanded and clear. The density superimposed upon the right lung base isalmost certainly due to pectoral muscles. Subcutaneous emphysema persists. ? [facility], Radiant Results Inft User - 02/16/2020 8:18 AM CDTEXAM: XR CHEST 1 VWHISTORY: ptx COMPARISON: None.FINDINGS:The heart and great vessels are normal and the lungs are satisfactorilyexpanded and clear. The density superimposed upon the right lung base isalmost certainly due to pectoral muscles. Subcutaneous emphysema persists.[facility] FallsTROPONIN [id number] 13:04:00* Test Item Value Reference Range Interpretation Comme nts TROPONIN I (test code = 5208599541) 0.003 ng/mL See_Comment [Automated message] The system which generated this result transmitted reference range: <=0.034. The reference range was not used to interpret this result as normal/abnormal. LOREN (test code = LOREN) Equal or Less than 0.034 ng/ml---Normal ?Note: Cardiac troponin begins to [...] patient's use of biotin. ? Lab Interpretation (test code = 10430-3) Normal [facility] (NA, K, CL, CO2, GLUCOSE, BUN, CREATININE, CA)2020-02-16 11:11:00* Test Item Value Reference Range Interpretation Comme nts NA (test code = 8114445672) 135 mmol/L 135-145 K (test code = 1971514634) 4.4 mmol/L 3.5-5 CL (test code = 5362079924) 105 mmol/L 98-108 CO2 TOTAL (test code = 1726596104) 24 mmol/L 23-31 AGAP (test code = 2190311371) 2-16 BUN (test code = 9659562327) 58 mg/dL 7-23 H GLUCOSE (test code = 7122111239) 226 mg/dL 70-110 H CREATININE (test code = 7638146663) 1.96 mg/dL 0.6-1.25 H CALCIUM (test code = 6851666716) 8.2 mg/dL 8.6-10.6 L eGFR Calculation (Non-) (test code = 9509416115) mL/min/1.73m2 eGFR Calculation () (test code = 1462037970) mL/min/1.73m2 LOREN (test code = LOREN) Association of [...] or abnormalities in imaging tests). Lab Interpretation (test code = 52509-1) Abnormal [facility] WITH [id number] 10:36:00* Test Item Value Reference Range Interpretation Comme nts WBC (test code = 6690-2) See_Comment [Automated GLIIF] The system which generated this result transmitted reference range: 4.20 - 10.70 10*3/?L. The reference range was not used to interpret this result as normal/abnormal. RBC (test code = 789-8) See_Comment L [Automated GLIIF] The system which generated this result transmitted reference range: 4.26 - 5.52 10*6/?L. The reference range was not used to interpret this result as normal/abnormal. HGB (test code = 718-7) 11.4 g/dL 12.2-16.4 L HCT (test code = 4544-3) 33.6 % 38.4-49.3 L MCV (test code = 787-2) 90.6 fL 81.7-95.6 MCH (test code = 785-6) 30.7 pg 26.1-32.7 MCHC (test code = 786-4) 33.9 g/dL 31.2-35 RDW-SD (test code = 29793-5) 45.3 fL 38.5-51.6 RDW-CV (test code = 788-0) 13.8 % 12.1-15.4 PLT (test code = 777-3) See_Comment L [Automated messa ge] The system which generated this result transmitted reference range: 150 - 328 10*3/?L. The reference range was not used to interpret this result as normal/abnormal. MPV (test code = 29654-0) 10.1 fL 9.8-13 NRBC/100 WBC (test code = 3384880609) See_Comment [Automated me ssage] The system which generated this result transmitted reference range: 0.0 - 10.0 /100 WBCs. The reference range was not used to interpret this result as normal/abnormal. NRBC x10^3 (test code = 2712575430) <0.01 See_Comment [Automated messa ge] The system which generated this result transmitted reference range: 10*3/?L. The reference range was not used to interpret this result as normal/abnormal. GRAN MAT (NEUT) % (test code = 770-8) 70.2 % IMM GRAN % (test code = 5611566671) 0.50 % LYMPH % (test code = 736-9) 15.7 % MONO % (test code = 5905-5) 8.3 % EOS % (test code = 713-8) 4.8 % BASO % (test code = 706-2) 0.5 % GRAN MAT x10^3(ANC) (test code = 5951425962) 2.95 10*3/uL 1.99-6.95 IMM GRAN x10^3 (test code = 8008104945) <0.03 0-0.06 LYMPH x10^3 (test code = 731-0) 0.66 10*3/uL 1.09-3.23 L MONO x10^3 (test code = 742-7) 0.35 10*3/uL 0.36-1.02 L EOS x10^3 (test code = 711-2) 0.20 10*3/uL 0.06-0.53 BASO x10^3 (test code = 704-7) <0.03 0.01-0.09 Lab Interpretation (test code = 30099-7) Abnormal [facility] GLUCOSE (AUTOMATED)2020-02-16 05:14:00* Test Item Value Reference Range Interpretation Comme nts POCT GLU (test code = 6484750306) 272 mg/dL 70-110 H Notified Provide r Lab Interpretation (test code = 75403-2) Abnormal [facility] GLUCOSE (AUTOMATED)2020-02-16 02:08:00* Test Item Value Reference Range Interpretation Comme nts POCT GLU (test code = 3297836643) 302 mg/dL 70-110 H Lab Interpretation (test cod e = 53329-6) Abnormal [facility] GLUCOSE (AUTOMATED)2020-02-15 22:46:00* Test Item Value Reference Range Interpretation Comme nts POCT GLU (test code = 4697628553) 270 mg/dL 70-110 H Lab Interpretation (test cod e = 18445-1) [facility]normal [facility] [id number] 15:11:50 Somewhat limited examination due to patient positioning. No sonographic evidence of left nephrolithiasis or left hydronephrosis. Images of the right kidney were not able to be obtained due to patientpositioning. Preliminary Report Dictated by Resident: Moise Palm MD., have reviewed this study and agree with the abovereport.HISTORY: JERAMY on possible CKD, s/p trauma . RENAL ULT RASOUND COMPARISON: None. TECHNIQUE: Heterogeneous grayscale and color Doppler ultrasound examinationof the abdomen with emphasis on the bilateral kidneys was performed. Cineclips were then generated. Of note this, examination is somewhat limiteddue to patient positioning. FINDINGS: RIGHT KIDNEY: The right kidney is not visualized. LEFT KIDNEY: Normal size, contour, and echotexture. ?The left kidneymeasures 9.4 x 4.8 x 5 cm in length (119 ml). No hydronephrosis. [facility], Radiant Results Inft User - 02/15/2020 10:12 AM CDTHISTORY: JERAMY on possible CKD, s/p trauma . RENAL ULTRASOUNDCOMPARISON: None.TECHNIQUE: Heterogeneous grayscale and color Doppler ultrasound examinationof the abdomen with emphasis on the bilateral kidneys was performed. Cineclips were then generated. Of note this, examination is somewhat limiteddue to patient positioning.FINDINGS: RIGHT KIDNEY: The right kidney is not visualized.LEFT KIDNEY: Normal size, contour, and echotexture. The left kidneymeasures 9.4 x 4.8 x 5 cm in length (119 ml). No hydronephrosis.IMPRESSIONSomewhat limited examination due to patient positioni ng.No sonographic evidence of left nephrolithiasis or left hydronephrosis.Images of the right kidney were not able to be obtained due to patientpositioning.Preliminary Report Dictated by Resident: Moise Quarles MD., have reviewed this study and agree with the abovereport. [facility] (AUTOM[facility])2020-02-15 13:20:00* Test Item Value Reference Range Interpretation Comme [facility] PO[facility] GLU (test code = 6283018883) 155 mg/dL 70-110 H Lab Interpretation (test cod e = 23030-5) Abnormal [facility] FallsXR CHEST 1 [id number] 12:56:56EXAM: XR CHEST 1 VW HISTORY: MV COMPARISON: None. FINDINGS: The heart and great vessels are normal and the lungs remain clear exceptfor a streak of atelectasis in the right midlung laterally. Subcutaneousemphysema persists. ? [facility], Radiant Results Inft User - 02/15/2020 7:58 AM CDTEXAM: XR CHEST 1 VWHISTORY: MV COMPARISON: None.FINDINGS:The heart and great vessels are normal and the lungs remain clear exceptfor a streak of atelectasis in the right midlung laterally. Subcutaneousemphysema persists.[facility] FallsBASIC METABOLIC PANEL (NA, K, CL, CO2, GLUCOSE, BUN, CREATININE, CA)2020-02-15 10:15:00* Test Item Value Reference Range Interpretation Comme nts NA (test code = 7377449200) 134 mmol/L 135-145 L K (test code = 9657285791) 4.6 mmol/L 3.5-5 CL (test code = 5652745187) 101 mmol/L 98-108 CO2 TOTAL (test code = 0388673490) 24 mmol/L 23-31 AGAP (test code = 3999345347) 2-16 BUN (test code = 5506140036) 76 mg/dL 7-23 H GLUCOSE (test code = 1564284413) 147 mg/dL 70-110 H CREATININE (test code = 5158264751) 3.26 mg/dL 0.6-1.25 H CALCIUM (test code = 1389473956) 8.1 mg/dL 8.6-10.6 L eGFR Calculation (Non-) (test code = 1139549390) mL/min/1.73m2 eGFR Calculation () (test code = 7897475659) mL/min/1.73m2 LOREN (test code = LOREN) Association of [...] or abnormalities in imaging tests). Lab Interpretation (test code = 08763-4) Abnormal [facility] WITH [id number] 09:36:00* Test Item Value Reference Range Interpretation Comme nts WBC (test code = 6690-2) See_Comment [Automated SaveFans!a ge] The system which generated this result transmitted reference range: 4.20 - 10.70 10*3/?L. The reference range was not used to interpret this result as normal/abnormal. RBC (test code = 789-8) See_Comment L [Automated [employer]!a ge] The system which generated this result transmitted reference range: 4.26 - 5.52 10*6/?L. The reference range was not used to interpret this result as normal/abnormal. HGB (test code = 718-7) 10.7 g/dL 12.2-16.4 L HCT (test code = 4544-3) 32.1 % 38.4-49.3 L MCV (test code = 787-2) 92.0 fL 81.7-95.6 MCH (test code = 785-6) 30.7 pg 26.1-32.7 MCHC (test code = 786-4) 33.3 g/dL 31.2-35 RDW-SD (test code = 67449-5) 46.5 fL 38.5-51.6 RDW-CV (test code = 788-0) 14.0 % 12.1-15.4 PLT (test code = 777-3) See_Comment L [Automated Save[employer]ans!a ge] The system which generated this result transmitted reference range: 150 - 328 10*3/?L. The reference range was not used to interpret this result as normal/abnormal. MPV (test code = 12764-5) 10.9 fL 9.8-13 NRBC/100 WBC (test code = 7565822939) See_Comment [Automated Freezing Point ssage] The system which generated this result transmitted reference range: 0.0 - 10.0 /100 WBCs. The reference range was not used to interpret this result as normal/abnormal. NRBC x10^3 (test code = 2374794555) <0.01 See_Comment [Automated messa ge] The system which generated this result transmitted reference range: 10*3/?L. The reference range was not used to interpret this result as normal/abnormal. GRAN MAT (NEUT) % (test code = 770-8) 78.7 % IMM GRAN % (test code = 4859717195) 0.50 % LYMPH % (test code = 736-9) 9.3 % MONO % (test code = 5905-5) 8.2 % EOS % (test code = 713-8) 2.9 % BASO % (test code = 706-2) 0.4 % GRAN MAT x10^3(ANC) (test code = 8881794009) 4.32 10*3/uL 1.99-6.95 IMM GRAN x10^3 (test code = 6684157199) 0.03 10*3/uL 0-0.06 LYMPH x10^3 (test code = 731-0) 0.51 10*3/uL 1.09-3.23 L MONO x10^3 (test code = 742-7) 0.45 10*3/uL 0.36-1.02 EOS x10^3 (test code = 711-2) 0.16 10*3/uL 0.06-0.53 BASO x10^3 (test code = 704-7) <0.03 0.01-0.09 Lab Interpretation (test code = 43920-6) Abnormal [facility] [id number] 05:53:00* Test Item Value Reference Range Interpretation Comme nts T. VOL U (test code = 0589721965) 700 mL HR COLLECT (test code = 9989785344) Hours NA URINE (test code = 7692495363) 22 mmol/L NA U/24H (test code = 9882418640) See_Comment L [Automated messa ge] The system which generated this result transmitted reference range: 40 - 220 mmol/24 hrs. The reference range was not used to interpret this result as normal/abnormal. Lab Interpretation (test code = 76469-4) Abnormal [facility] GLUCOSE (AUTOMATED)2020-02-15 01:57:00* Test Item Value Reference Range Interpretation Comme nts POCT GLU (test code = 8554141781) 199 mg/dL 70-110 H Lab Interpretation (test cod e = 47116-3) Abnormal [facility] FallsCHLORIDE, URINE [id number] 01:52:00* Test Item Value Reference Range Interpretation Comme nts CL URINE (test code = 2235506908) <15 30-260 L Lab Interpretation (test cod e = 35235-5) Abnormal [facility] FallsPOTASSIUM, URINE [id number] 01:39:00* Test Item Value Reference Range Interpretation Comme nts K URINE (test code = 7772782822) 60.5 mmol/L [facility] FallsURINALYSIS2020-06-09 01:10:00* Test Item Value Reference Range Interpretation Comme nts APPEARANCE (test code = 2277801529) Hazy Clear A COLOR (test code = 7374391553) Yellow Yellow PH (test code = 1392044785) 4.8-8.0 SP GRAVITY (test code = 3523062953) 1.003-1.030 GLU U QUAL (test code = 6376514883) Normal Normal BLOOD (test code = 4260534709) 2+ Negative A KETONES (test code = 3526985167) Negative Negative PROTEIN (test code = 2887-8) Negative Negative UROBILIN (test code = 4706139594) Normal Normal BILIRUBIN (test code = 3274440026) Negative Negative NITRITE (test code = 9976197794) Negative Negative [place] (test code = 3835365918) Negative Negative RBC/HPF (test code = 6421292216) See_Comment H [Automated messa ge] The system which generated this result transmitted reference range: 0 - 3 HPF. The reference range was not used to interpret this result as normal/abnormal. WBC/HPF (test code = 3747693876) See_Comment [Automated SaveFans!a ge] The system which generated this result transmitted reference range: 0 - 5 HPF. The reference range was not used to interpret this result as normal/abnormal. BACTERIA (test code = 4261026887) Negative Negative MUCOUS (test code = 6322107252) Slight Negative LPF A SQ EPITH (test code = 7300460420) <1 See_Comment [Automated SaveFans!a ge] The system which generated this result transmitted reference range: <=2 HPF. The reference range was not used to interpret this result as normal/abnormal. Lab Interpretation (test code = 64152-9) Abnormal [facility] FallsSODIUM, URINE [id number] 23:41:00* Test Item Value Reference Range Interpretation Comme nts NA URINE (test code = 3855365582) 20 mmol/L [facility] GLUCOSE (AUTOMATED)2020-02-14 23:12:00* Test Item Value Reference Range Interpretation Comme nts POCT GLU (test code = 1862234063) 115 mg/dL 70-110 H Lab Interpretation (test cod e = 76390-6) Abnormal [facility] GLUCOSE (AUTOMATED)2020-02-14 22:31:00* Test Item Value Reference Range Interpretation Comme nts POCT GLU (test code = 3703789942) 124 mg/dL 70-110 H Lab Interpretation (test cod e = 85119-1) [facility]normal [facility] FallsXR CHEST 1 [id number] 21:47:22 FINDINGS/IMPRESSION: Right-sided chest tube has been intervally removed. Extensive subcutaneousemphysema throughout the right chest wall and right cervical soft tissuesis redemonstrated. Residual 6 mm pneumothorax over the lateral right lowerlung is suspected but evaluation is suboptimal secondary to subcutaneousemphysema resulting in partial obscuration. Attention at follow-up isrecommended. Thelungs are otherwise clear. The heart is normal in size. No pleural effusion. Preliminary Report Dictated by Resident: Crystal Mckeon MD., have reviewed this study and agree with the abovereport.EXAM: XR CHEST 1 VW HISTORY: chest tube removed COMPARISON: X-ray dated 02/14/2020 [facility], Radiant Results Inft User - 02/14/2020 4:48 PM CDTEXAM:XR CHEST 1 VWHISTORY:chest tube removedCOMPARISON:X-ray dated 02/14/2020IMPRESSIONFINDINGS/IMPRESSION: Right-sided chest tube has been interv ally removed. Extensive subcutaneousemphysema throughout the right chest wall and right cervical soft tissuesis redemonstrated. Residual 6 mm pneumothorax over the lateral right lowerlung is suspected but evaluation is suboptimal secondary to subcutaneousemphysema resulting in partial obscuration. Attention at follow-up isrecommended.The lungs are otherwise clear. The heart is normal in size. No pleural effusion.Preliminary Report Dictated by Resident: Estiven Bryan, Crystal Gastelum MD., have reviewed this study and agree with the abovereport.[facility]UCOSE (AUTOMATED)2020-02-14 13:14:00* Test Item Value Reference Range Interpretation Comme nts POCT GLU (test code = 2709590263) 136 mg/dL 70-110 H Lab Interpretation (test cod e = 60398-2) Abnormal [facility] FallsXR CHEST 1 [id number] 13:02:33EXAM: XR CHEST 1 VW HISTORY: CT COMPARISON: None. FINDINGS: The chest tube draining the pleural space on the right has been slightlyretracted. The lungs are well expanded and clear except for the tiniestapical pneumothorax on the right. The left hemidiaphragm is slightlyelevated. The heart and great vessels are normal. Subcutaneous emphysemapersists on the right. ? [facility], Radiant Results Inft User- 02/14/2020 8:03 AM CDTEXAM: XR CHEST 1 VWHISTORY: CT COMPARISON: None.FINDINGS:The chest tube draining the pleural space on the right has been slightlyretracted. The lungs are well expanded and clear except for the tiniestapical pneumothorax on the right. The left hemidiaphragm is slightlyelevated. The heart and great vessels are normal. Subcutaneous emphysemapersists on the right.[facility] FallsBASIC METABOLIC PANEL (NA, K, CL, CO2, GLUCOSE, BUN, CREATININE, CA)2020-02-14 09:35:00* Test Item Value Reference Range Interpretation Comme nts NA (test code = 2717161481) 134 mmol/L 135-145 L K (test code = 0305356728) 4.4 mmol/L 3.5-5 CL (test code = 7360568166) 102 mmol/L 98-108 CO2 TOTAL (test code = 3308488188) 25 mmol/L 23-31 AGAP (test code = 7430841967) 2-16 BUN (test code = 6464462488) 65 mg/dL 7-23 H GLUCOSE (test code = 6668951903) 136 mg/dL 70-110 H CREATININE (test code = 3757787930) 4.32 mg/dL 0.6-1.25 H CALCIUM (test code = 5812864489) 7.8 mg/dL 8.6-10.6 L eGFR Calculation (Non-) (test code = 9989521488) mL/min/1.73m2 eGFR Calculation () (test code = 3182538509) mL/min/1.73m2 LOREN (test code = LOREN) Association of [...] or abnormalities in imaging tests). Lab Interpretation (test code = 88078-9) Abnormal [facility] WITH [id number] 09:15:00* Test Item Value Reference Range Interpretation Comme nts WBC (test code = 6690-2) See_Comment [Automated GLIIF] The system which generated this result transmitted reference range: 4.20 - 10.70 10*3/?L. The reference range was not used to interpret this result as normal/abnormal. RBC (test code = 789-8) See_Comment L [Automated messa ge] The system which generated this result transmitted reference range: 4.26 - 5.52 10*6/?L. The reference range was not used to interpret this result as normal/abnormal. HGB (test code = 718-7) 10.7 g/dL 12.2-16.4 L HCT (test code = 4544-3) 32.2 % 38.4-49.3 L MCV (test code = 787-2) 93.3 fL 81.7-95.6 MCH (test code = 785-6) 31.0 pg 26.1-32.7 MCHC (test code = 786-4) 33.2 g/dL 31.2-35 RDW-SD (test code = 78127-8) 47.9 fL 38.5-51.6 RDW-CV (test code = 788-0) 14.0 % 12.1-15.4 PLT (test code = 777-3) See_Comment L [Automated messa ge] The system which generated this result transmitted reference range: 150 - 328 10*3/?L. The reference range was not used to interpret this result as normal/abnormal. MPV (test code = 82447-6) 10.5 fL 9.8-13 NRBC/100 WBC (test code = 0907694109) See_Comment [Automated Free[employer] ssage] The system which generated this result transmitted reference range: 0.0 - 10.0 /100 WBCs. The reference range was not used to interpret this result as normal/abnormal. NRBC x10^3 (test code = 2283891629) <0.01 See_Comment [Automated messa ge] The system which generated this result transmitted reference range: 10*3/?L. The reference range was not used to interpret this result as normal/abnormal. GRAN MAT (NEUT) % (test code = 770-8) 75.0 % IMM GRAN % (test code = 8133699412) 0.60 % LYMPH % (test code = 736-9) 13.3 % MONO % (test code = 5905-5) 7.7 % EOS % (test code = 713-8) 3.0 % BASO % (test code = 706-2) 0.4 % GRAN MAT x10^3(ANC) (test code = 9729722328) 4.02 10*3/uL 1.99-6.95 IMM GRAN x10^3 (test code = 1407600697) 0.03 10*3/uL 0-0.06 LYMPH x10^3 (test code = 731-0) 0.71 10*3/uL 1.09-3.23 L MONO x10^3 (test code = 742-7) 0.41 10*3/uL 0.36-1.02 EOS x10^3 (test code = 711-2) 0.16 10*3/uL 0.06-0.53 BASO x10^3 (test code = 704-7) <0.03 0.01-0.09 Lab Interpretation (test code = 07071-2) Abnormal [facility] FallsCREATININE, URINE [id number] 05:08:00* Test Item Value Reference Range Interpretation Comme nts CREAT U (test code = 3706618571) 226.2 mg/dL [facility] FallsPOID GLUCOSE (AUTOMATED)2020-02-14 01:54:00* Test Item Value Reference Range Interpretation Comme nts POCT GLU (test code = 3014743697) 173 mg/dL 70-110 H Lab Interpretation (test cod e = 22655-0) Abnormal [facility] METABOLIC PANEL (NA, K, CL, CO2, GLUCOSE, BUN, CREATININE, CA)2020-02-14 00:55:00* Test Item Value Reference Range Interpretation Comme nts NA (test code = 6035870298) 136 mmol/L 135-145 K (test code = 1571830585) 4.8 mmol/L 3.5-5 CL (test code = 7147412229) 101 mmol/L 98-108 CO2 TOTAL (test code = 1802080802) 26 mmol/L 23-31 AGAP (test code = 9058778840) 2-16 BUN (test code = 7326319463) 64 mg/dL 7-23 H GLUCOSE (test code = 1612780735) 171 mg/dL 70-110 H CREATININE (test code = 6300639845) 4.30 mg/dL 0.6-1.25 H CALCIUM (test code = 1191885414) 8.5 mg/dL 8.6-10.6 L eGFR Calculation (Non-) (test code = 4706175914) mL/min/1.73m2 eGFR Calculation () (test code = 9256972876) mL/min/1.73m2 LOREN (test code = LOREN) Association of [...] or abnormalities in imaging tests). Lab Interpretation (test code = 77978-2) Abnormal [facility]POCT GLUCOSE (AUTOMATED)2020-02-13 22:34:00* Test Item Value Reference Range Interpretation Comme [facility] PO[facility]U (test code = 3410398780) 170 mg/dL 70-110 H Lab Interpretation (test cod e = 68045-0) Abnormal [facility]XR CHE[facility] 1 [id number] 21:02:13 FINDINGS/IMPRESSION: The right chest tube is [...] 1 VW CLINICAL INDICATION: rib fx COMPARISON: Chest x-ray dated 02/12/2020. [facility], Radiant Results Inft User - 02/13/2020 4:03 PM CDTPROCEDURE: XR CHEST 1 VWCLINICAL INDICATION: rib fx COMPARISON: Chest x-ray dated 02/12/2020.IMPRESSIONFINDINGS/IMPRESSION:The right chest tube is unchanged in position. No residual pneumothoraxnoted. Worsening of the right chest wall subcutaneous emphysema.The lungs are clear. No pleural effusion or pneumothorax is seen. The heartis normal in size.No acute bony abnormality.Preliminary Report Dictated by Resident: Crystal Fischer MD., have reviewed this study and agree with the abovereport.[facility] FallsPOID GLUCOSE (AUTOMATED) 2020-02-13 17:49:00* Test Item Value Reference Range Interpretation Comme [facility] POCT GLU (test code = 2630797501) 185 mg/dL 70-110 H Lab Interpretation (test cod e = 44611-2) Abnormal [facility] FallsBAC METABOLIC PANEL (NA, K, CL, CO2, GLUCOSE, BUN, CREATININE, CA)2020-02-13 16:05:00* Test Item Value Reference Range Interpretation Comme [facility] NA (test code = 2895516799) 136 mmol/L 135-145 K (test code = 3245807733) 4.7 mmol/L 3.5-5 CL (test code = 8473510184) 102 mmol/L 98-108 CO2 TOTAL (test code = 2203276980) 26 mmol/L 23-31 AGAP (test code = 4380898441) 2-16 BUN (test code = 3979651944) 54 mg/dL 7-23 H GLUCOSE (test code = 2696573912) 181 mg/dL 70-110 H CREATININE (test code = 4082445522) 4.11 mg/dL 0.6-1.25 H CALCIUM (test code = 1675019230) 8.5 mg/dL 8.6-10.6 L eGFR Calculation (Non-) (test code = 9925890197) mL/min/1.73m2 eGFR Calculation () (test code = 0107533131) mL/min/1.73m2 LOREN (test code = LOREN) Association of [...] or abnormalities in imaging tests). Lab Interpretation (test code = 64057-5) Abnormal [facility] WITH [id number] 16:01:00* Test Item Value Reference Range Interpretation Comme nts WBC (test code = 6690-2) See_Comment [Automated GLIIF] The system which generated this result transmitted reference range: 4.20 - 10.70 10*3/?L. The reference range was not used to interpret this result as normal/abnormal. RBC (test code = 789-8) See_Comment L [Automated messa ge] The system which generated this result transmitted reference range: 4.26 - 5.52 10*6/?L. The reference range was not used to interpret this result as normal/abnormal. HGB (test code = 718-7) 13.2 g/dL 12.2-16.4 HCT (test code = 4544-3) 39.4 % 38.4-49.3 MCV (test code = 787-2) 92.9 fL 81.7-95.6 MCH (test code = 785-6) 31.1 pg 26.1-32.7 MCHC (test code = 786-4) 33.5 g/dL 31.2-35 RDW-SD (test code = 80352-8) 48.3 fL 38.5-51.6 RDW-CV (test code = 788-0) 14.2 % 12.1-15.4 PLT (test code = 777-3) See_Comment [Automated [employer]!a ge] The system which generated this result transmitted reference range: 150 - 328 10*3/?L. The reference range was not used to interpret this result as normal/abnormal. MPV (test code = 97816-7) 11.1 fL 9.8-13 NRBC/100 WBC (test code = 8366354069) See_Comment [Automated Freezing [place] ssage] The system which generated this result transmitted reference range: 0.0 - 10.0 /100 WBCs. The reference range was not used to interpret this result as normal/abnormal. NRBC x10^3 (test code = 7756409061) <0.01 See_Comment [Automated messa ge] The system which generated this result transmitted reference range: 10*3/?L. The reference range was not used to interpret this result as normal/abnormal. GRAN MAT (NEUT) % (test code = 770-8) 78.8 % IMM GRAN % (test code = 0041762867) 0.40 % LYMPH % (test code = 736-9) 12.4 % MONO % (test code = 5905-5) 6.5 % EOS % (test code = 713-8) 1.4 % BASO % (test code = 706-2) 0.5 % GRAN MAT x10^3(ANC) (test code = 2752407523) 6.28 10*3/uL 1.99-6.95 IMM GRAN x10^3 (test code = 4447820453) 0.03 10*3/uL 0-0.06 LYMPH x10^3 (test code = 731-0) 0.99 10*3/uL 1.09-3.23 L MONO x10^3 (test code = 742-7) 0.52 10*3/uL 0.36-1.02 EOS x10^3 (test code = 711-2) 0.11 10*3/uL 0.06-0.53 BASO x10^3 (test code = 704-7) 0.04 10*3/uL 0.01-0.09 Lab Interpretation (test code = 93003-9) Abnormal [facility] GLUCOSE (AUTOMATED)2020-02-13 14:49:00* Test Item Value Reference Range Interpretation Comme nts POCT GLU (test code = 8663114008) 188 mg/dL 70-110 H Lab Interpretation (test cod e = 73267-5) Abnormal [facility] GLUCOSE (AUTOMATED)2020-02-13 02:44:00* Test Item Value Reference Range Interpretation Comme nts POCT GLU (test code = 2425330644) 160 mg/dL 70-110 H Lab Interpretation (test cod e = 46708-9) Abnormal [facility] GLUCOSE (AUTOMATED)2020-02-12 18:57:00* Test Item Value Reference Range Interpretation Comme nts POCT GLU (test code = 0510977151) 172 mg/dL 70-110 H Lab Interpretation (test cod e = 73535-7) [facility]normal [facility] 1 [id number] 17:57:29Unchanged right chest tube without residual pneumothorax seen. Mild increase in the right subcutaneous emphysema. Non displaced right sided rib fractures. Preliminary Report Dictated by Resident: Crystal Mendosa MD., have reviewed this study and agree with the abovereport.PROCEDURE: XR CHEST 1 VW CLINICAL INDICATION: CT COMPARISON: Chest x-ray dated 02/11/2020. F INDINGS: The right chest tube is unchanged in position. No residual pneumothorax orpleural effusionidentified. The lungs are clear. The heart is normal in size. Right sided 4th, 8th, and 9th rib fractures without displacement are seen.Chest wall subcutaneous emphysema is present, increased in comparison toprior. [facility], Radiant Results Inft User - 02/12/2020 12:58 PM CDTPROCEDURE: XR CHEST 1 VWCLIN ICAL INDICATION: CT COMPARISON: Chest x-ray dated 02/11/2020.FINDINGS:The [...] rib fractures.Preliminary Report Dictated by Resident: Sanjiv Merino, Crystal Gastelum MD., have reviewed this study and agree with the abovereport.[facility] (AUTOMATED)2020-02-12 13:36:00* Test Item Value Reference Range Interpretation Comme nts POCT GLU (test code = 1230012275) 232 mg/dL 70-110 H Lab Interpretation (test cod e = 14439-6) Abnormal [facility] (NA, K, CL, CO2, GLUCOSE, BUN, CREATININE, CA)2020-02-12 10:32:00* Test Item Value Reference Range Interpretation Comme [facility] NA (test code = 2665142137) 137 mmol/L 135-145 K (test code = 9691908828) 5.0 mmol/L 3.5-5 CL (test code = 3055659737) 104 mmol/L 98-108 CO2 TOTAL (test code = 3724666123) 25 mmol/L 23-31 AGAP (test code = 4006157540) 2-16 BUN (test code = 0210052864) 30 mg/dL 7-23 H GLUCOSE (test code = 4822111288) 178 mg/dL 70-110 H CREATININE (test code = 0832512573) 1.71 mg/dL 0.6-1.25 H CALCIUM (test code = 5870162715) 8.5 mg/dL 8.6-10.6 L eGFR Calculation (Non-) (test code = 9369590304) mL/min/1.73m2 eGFR Calculation () (test code = 2395642611) mL/min/1.73m2 LOREN (test code = LOREN) Association of [...] or abnormalities in imaging tests). Lab Interpretation (test code = 50087-4) Abnormal [facility] FallsPHOSPHORUS2020-06-06 10:31:00* Test Item Value Reference Range Interpretation Comme nts PHOSPHORUS (test code = 4119991840) 5.4 mg/dL 2.5-5 H Lab Interpretation (test cod e = 76991-8) Abnormal [facility] FallsCBC WITH [id number] 10:10:00* Test Item Value Reference Range Interpretation Comme nts WBC (test code = 6690-2) See_Comment [Automated GLIIF] The system which generated this result transmitted reference range: 4.20 - 10.70 10*3/?L. The reference range was not used to interpret this result as normal/abnormal. RBC (test code = 789-8) See_Comment L [Automated messa ge] The system which generated this result transmitted reference range: 4.26 - 5.52 10*6/?L. The reference range was not used to interpret this result as normal/abnormal. HGB (test code = 718-7) 13.0 g/dL 12.2-16.4 HCT (test code = 4544-3) 38.6 % 38.4-49.3 MCV (test code = 787-2) 91.5 fL 81.7-95.6 MCH (test code = 785-6) 30.8 pg 26.1-32.7 MCHC (test code = 786-4) 33.7 g/dL 31.2-35 RDW-SD (test code = 37525-6) 47.4 fL 38.5-51.6 RDW-CV (test code = 788-0) 14.3 % 12.1-15.4 PLT (test code = 777-3) See_Comment [Automated messa ge] The system which generated this result transmitted reference range: 150 - 328 10*3/?L. The reference range was not used to interpret this result as normal/abnormal. MPV (test code = 04035-4) 10.8 fL 9.8-13 NRBC/100 WBC (test code = 3655583958) See_Comment [Automated Freezing Point ssage] The system which generated this result transmitted reference range: 0.0 - 10.0 /100 WBCs. The reference range was not used to interpret this result as normal/abnormal. NRBC x10^3 (test code = 5805532829) <0.01 See_Comment [Automated messa ge] The system which generated this result transmitted reference range: 10*3/?L. The reference range was not used to interpret this result as normal/abnormal. GRAN MAT (NEUT) % (test code = 770-8) 79.1 % IMM GRAN % (test code = 5473374745) 0.40 % LYMPH % (test code = 736-9) 9.6 % MONO % (test code = 5905-5) 9.5 % EOS % (test code = 713-8) 0.9 % BASO % (test code = 706-2) 0.5 % GRAN MAT x10^3(ANC) (test code = 0163034141) 6.24 10*3/uL 1.99-6.95 IMM GRAN x10^3 (test code = 7658692049) 0.03 10*3/uL 0-0.06 LYMPH x10^3 (test code = 731-0) 0.76 10*3/uL 1.09-3.23 L MONO x10^3 (test code = 742-7) 0.75 10*3/uL 0.36-1.02 EOS x10^3 (test code = 711-2) 0.07 10*3/uL 0.06-0.53 BASO x10^3 (test code = 704-7) 0.04 10*3/uL 0.01-0.09 Lab Interpretation (test code = 34176-1) Abnormal [facility] GLUCOSE (AUTOMATED)2020-02-12 03:58:00* Test Item Value Reference Range Interpretation Comme nts POCT GLU (test code = 3903728041) 165 mg/dL 70-110 H Lab Interpretation (test cod e = 23836-8) Abnormal [facility] GLUCOSE (AUTOMATED)2020-02-12 02:33:00* Test Item Value Reference Range Interpretation Comme nts POCT GLU (test code = 3701598410) 170 mg/dL 70-110 H Notified Provide r Lab Interpretation (test code = 38668-3) [facility]normal [facility] 1 [id number] 01:02:10Interval advancement of right chest tube with resolution of rightpneumothorax. Right- sided chest wall emphysema persists. Preliminary Report Dictated by Resident: Moraima Taylor MD., have reviewed this study and agree with theabove report.EXAM: XR CHEST 1 VW CLINICAL INDICATION: chest tube COMPARISON: 02/11/2020 FINDINGS: Interval advancement of a right chest tube. The lungs are we ll-expanded andclear without focal consolidation or pleural effusion. No residualpneumothorax is identified. The cardiac silhouette is normal in size. The aorta is tortuous. Rib fractures, better evaluated on the prior CT. [facility], Radiant Results Inft User - 02/11/2020 8:03 PM CDTEXAM: XR CHEST 1 VWCLINICAL INDICATION: chest tube COMPARISON: 02/11/2020FINDINGS:Interval advancement of a right chest tube. The lungs are well-expanded andclear without focal consolidation or pleural effusion. No residualpneumothorax is identified.The cardiac silhouette is normal in size. The aorta is tortuous.Rib fractures, better evaluated on the prior CT.IMPRESSIONInterval advancement of right chest tube with resolution of rightpneumothorax. Right-sided chest wall emphysema persists.Preliminary Report Dictated by Resident: Moraima Santana MD., have reviewed this study and agree with theabove report.[facility] FallsCritical [id number] 21:34:22NeCheryl morales MD ? ? 02/11/2020 ?4:34 PMCritical CarePerformed by: Cheryl Hughes MDAuthorized by: Cheryl Hughes MD Critical care provider statement: ?Critical care time (minutes): ?60 ?Critical care was necessary to treat or prevent imminent or life-threatening deterioration of the followingconditions: ?Trauma ?Critical care was time spent personally by me on the following activities: ?Blood draw for specimens, development of treatment plan with patient or surrogate, discussions with con sultants, discussions with primary provider, evaluation of patient's response to treatment, examination of patient, pulse oximetry, ordering and review of radiographic studies, ordering and review oflaboratory studies and ordering and performing treatments and interventionsUnParkview Regional HospitalCOVID- 19 (ID NOW RAPID TESTING)2020-02-11 18:06:00* Test Item Value Reference Range Interpretation Comme nts SARS-CoV-2 Rapid ID NOW (test code = 84399-8) Not Detected Not Detected LOREN (test code = LOREN) ID NOW COVID-19 As say is an isothermal nucleic acid amplification test intended for the qualitative detection of nucleic acid from SARS-CoV-2 viral RNA in nasopharyngeal ([employer]) specimens. It is used under Emergency Use [...] patient testing if clinically indicated. Lab Interpretation (test code = 94578-7) Normal [facility] FallsCT TRAUMA THORACIC SPINE WO [id number] 18:01:27No acute intracranial abnormality. No fracture or traumatic malalignment of the cervical, thoracic or lumbarspine. 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 Partially visualized large right pneumothorax. At the time of dictation, the treating team is aware of and treating thepneumothoraxCT TRAUMA CERVICAL SPINE WO CONTRAST,CT TRAUMA LUMBAR SPINE WO CONTRAST,CT TRAUMA THORACIC SPINE WO CONTRAST,CT TRAUMA HEAD WO CONTRAST H ISTORY: Male 69 years Polytrauma, critical, head/C-spine injury suspectedCT TRAUMA PANEL (FALL >20 FT WITH OBVIOUS SERIOUS INJURIES) COMPARISON: None TECHNIQUE: Routine CT head and cervical spine were obtained without IVcontrast. CT thoracolumbar spine were reconstructed from thecontrast-enhanced CT abdomen/pelvis studies. FINDINGS: CT head: The ventricles and cerebral sulci are normal in caliber and configuration.No hydrocephalus, midline shift or pathological extra-axial fluidcollection ispresent. The basal cisterns are unremarkable. No acute intracranial hemorrhage or mass effect is present. The nj-whitematter differentiation is preserved. A small, remote lacunar infarct isseen in the right caudate body. No additional parenchymal attenuationabnormality is present. The calvarium and skull base are unremarkable. The mastoid air cells andvisualized paranasal air sinuses are clear.CT cervical spine: The vertebral bodies are normal in height and in normal alignment. No facetfracture or subluxation is present. A well-corticated, chronic, nonunitedfracture of the C7 spinous process is incidentally noted. The craniocervical junction is intact. The prevertebral soft tissues areunr emarkable. Incidental note is made of developmental incomplete fusion of the D5uvkenediv arch. Multilevel mild to moderate degenerative changes [...] emphysematous changes are seen in the visualized lungs. CT lumbar spine: The vertebral bodies are normal in height and in normal alignment. No facetfracture or subluxation is present. 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 Bridging syndesmophytes are noted throughout the lumbar spine. There iscomplete osseous fusion across the sacroiliac joints. [facility], Radiant Results Inft User - 02/11/2020 1:02 PM CDTCT TRAUMA CERVICAL SPINE WO CONTRAST,CT TRAUMA LUMBAR SPINE WO CONTRAST,CT TRAUMA THORACIC SPINE WO CONTRAST,CT TRAUMA HEAD WO CONTRASTHISTORY: Male69 years Polytrauma, critical, head/C-spine injury suspectedCT TRAUMA PANEL (FALL >20 FT WITH OBVIOUS SERIOUS INJURIES)COMPARISON: NoneTECHNIQUE: Routine CT head and cervical spine [...] caudate body. No additional parenchymal attenuationabnormality is present.The calvarium and skull base are [...] made of developmental incomplete fusion of the W4oqyfnhigk arch.Multilevel mild to moderate degenerative changes are most pronounced at theC7-T1 level.CT thoracic spine:The vertebral bodies arenormal in height and in normal alignment. No [...] subluxation is present. There is a well-corticated osseousdefectin the right L2 pars interarticularis.Bridging syndesmophytes are noted throughout the lumbar spine. There iscomplete osseous fusion across the sacroiliac joints.IMPRESSIONNo acute intracranial abnormality.No fracture or traumatic malalignment of the cervical, thoracic or lumbarspine. 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 No fracture or traumatic [...] spine were reconstructed from thecontrast-enhanced CT abdomen/pelvis studies. FINDINGS: CT head: The ventricles and cerebral sulci are normal in caliber and configuration.No hydrocephalus, midline shift or pathological extra-axial fluidcollection ispresent. The basal cisterns are unremarkable. No acute intracranial hemorrhage or mass effect is present. The nj-whitematter differentiation is preserved. A small, remote lacunar infarct isseen in the right caudate body. No additional parenchymal attenuationabnormality is present. The calvarium and skull base are unremarkable. The mastoid air cells andvisualized paranasal air sinuses are clear.CT cervical spine: The vertebral bodies are normal in height and in normal alignment. No facetfracture or subluxation is present. A well-corticated, chronic, nonunitedfracture of the C7 spinous process is incidentally noted. The craniocervical junction is intact. The prevertebral soft tissues areunr emarkable. Incidental note is made of developmental incomplete fusion of the E6yqjnxywgp arch. Multilevel mild to moderate degenerative changes [...] emphysematous changes are seen in the visualized lungs. CT lumbar spine: The vertebral bodies are normal in height and in normal alignment. No facetfracture or subluxation is present. 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 Bridging syndesmophytes are noted throughout the lumbar spine. There iscomplete osseous fusion across the sacroiliac joints. [facility], Radiant Results Inft User - 02/11/2020 1:02 PM CDTCT TRAUMA CERVICAL SPINE WO CONTRAST,CT TRAUMA LUMBAR SPINE WO CONTRAST,CT TRAUMA THORACIC SPINE WO CONTRAST,CT TRAUMA HEAD WO CONTRASTHISTORY: Male69 years Polytrauma, critical, head/C-spine injury suspectedCT TRAUMA PANEL (FALL >20 FT WITH OBVIOUS SERIOUS INJURIES)COMPARISON: NoneTECHNIQUE: Routine CT head and cervical spine [...] caudate body. No additional parenchymal attenuationabnormality is present.The calvarium and skull base are [...] made of developmental incomplete fusion of the D3wxdygyhqt arch.Multilevel mild to moderate degenerative changes are most pronounced at theC7-T1 level.CT thoracic spine:The vertebral bodies arenormal in height and in normal alignment. No [...] subluxation is present. There is a well-corticated osseousdefectin the right L2 pars interarticularis.Bridging syndesmophytes are noted throughout the lumbar spine. There iscomplete osseous fusion across the sacroiliac joints.IMPRESSIONNo acute intracranial abnormality.No fracture or traumatic malalignment of the cervical, thoracic or lumbarspine. 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 No fracture or traumatic [...] spine were reconstructed from thecontrast-enhanced CT abdomen/pelvis studies. FINDINGS: CT head: The ventricles and cerebral sulci are normal in caliber and configuration.No hydrocephalus, midline shift or pathological extra-axial fluidcollection ispresent. The basal cisterns are unremarkable. No acute intracranial hemorrhage or mass effect is present. The nj-whitematter differentiation is preserved. A small, remote lacunar infarct isseen in the right caudate body. No additional parenchymal attenuationabnormality is present. The calvarium and skull base are unremarkable. The mastoid air cells andvisualized paranasal air sinuses are clear.CT cervical spine: The vertebral bodies are normal in height and in normal alignment. No facetfracture or subluxation is present. A well-corticated, chronic, nonunitedfracture of the C7 spinous process is incidentally noted. The craniocervical junction is intact. The prevertebral soft tissues areunr emarkable. Incidental note is made of developmental incomplete fusion of the X8bajvqdywb arch. Multilevel mild to moderate degenerative changes [...] emphysematous changes are seen in the visualized lungs. CT lumbar spine: The vertebral bodies are normal in height and in normal alignment. No facetfracture or subluxation is present. 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 Bridging syndesmophytes are noted throughout the lumbar spine. There iscomplete osseous fusion across the sacroiliac joints. [facility], Radiant Results Inft User - 02/11/2020 1:02 PM CDTCT TRAUMA CERVICAL SPINE WO CONTRAST,CT TRAUMA LUMBAR SPINE WO CONTRAST,CT TRAUMA THORACIC SPINE WO CONTRAST,CT TRAUMA HEAD WO CONTRASTHISTORY: Male69 years Polytrauma, critical, head/C-spine injury suspectedCT TRAUMA PANEL (FALL >20 FT WITH OBVIOUS SERIOUS INJURIES)COMPARISON: NoneTECHNIQUE: Routine CT head and cervical spine [...] caudate body. No additional parenchymal attenuationabnormality is present.The calvarium and skull base are [...] made of developmental incomplete fusion of the F9rbkgxqyae arch.Multilevel mild to moderate degenerative changes are most pronounced at theC7-T1 level.CT thoracic spine:The vertebral bodies arenormal in height and in normal alignment. No [...] subluxation is present. There is a well-corticated osseousdefectin the right L2 pars interarticularis.Bridging syndesmophytes are noted throughout the lumbar spine. There iscomplete osseous fusion across the sacroiliac joints.IMPRESSIONNo acute intracranial abnormality.No fracture or traumatic malalignment of the cervical, thoracic or lumbarspine. 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 No fracture or traumatic [...] spine were reconstructed from thecontrast-enhanced CT abdomen/pelvis studies. FINDINGS: CT head: The ventricles and cerebral sulci are normal in caliber and configuration.No hydrocephalus, midline shift or pathological extra-axial fluidcollection ispresent. The basal cisterns are unremarkable. No acute intracranial hemorrhage or mass effect is present. The nj-whitematter differentiation is preserved. A small, remote lacunar infarct isseen in the right caudate body. No additional parenchymal attenuationabnormality is present. The calvarium and skull base are unremarkable. The mastoid air cells andvisualized paranasal air sinuses are clear.CT cervical spine: The vertebral bodies are normal in height and in normal alignment. No facetfracture or subluxation is present. A well-corticated, chronic, nonunitedfracture of the C7 spinous process is incidentally noted. The craniocervical junction is intact. The prevertebral soft tissues areunr emarkable. Incidental note is made of developmental incomplete fusion of the N1gbwgoayxr arch. Multilevel mild to moderate degenerative changes [...] emphysematous changes are seen in the visualized lungs. CT lumbar spine: The vertebral bodies are normal in height and in normal alignment. No facetfracture or subluxation is present. 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 Bridging syndesmophytes are noted throughout the lumbar spine. There iscomplete osseous fusion across the sacroiliac joints. [facility], Radiant Results Inft User - 02/11/2020 1:02 PM CDTCT TRAUMA CERVICAL SPINE WO CONTRAST,CT TRAUMA LUMBAR SPINE WO CONTRAST,CT TRAUMA THORACIC SPINE WO CONTRAST,CT TRAUMA HEAD WO CONTRASTHISTORY: Male69 years Polytrauma, critical, head/C-spine injury suspectedCT TRAUMA PANEL (FALL >20 FT WITH OBVIOUS SERIOUS INJURIES)COMPARISON: NoneTECHNIQUE: Routine CT head and cervical spine [...] caudate body. No additional parenchymal attenuationabnormality is present.The calvarium and skull base are [...] made of developmental incomplete fusion of the P9fnkbzsesk arch.Multilevel mild to moderate degenerative changes are most pronounced at theC7-T1 level.CT thoracic spine:The vertebral bodies arenormal in height and in normal alignment. No [...] subluxation is present. There is a well-corticated osseousdefectin the right L2 pars interarticularis.Bridging syndesmophytes are noted throughout the lumbar spine. There iscomplete osseous fusion across the sacroiliac joints.IMPRESSIONNo acute intracranial abnormality.No fracture or traumatic malalignment of the cervical, thoracic or lumbarspine. 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 Large right pneumothorax2. Nondisplaced fractures involving the right 4th through 12th ribs withassociated subcutaneous emphysema3. Small right pleural effusion, likely hemothorax related to rib fr actures4. Moderately severe centrilobular emphysematous changes with large bullaare noted in the para mediastinal area5. No acute traumatic injury to the organs of the abdomen or pelvis6. Diffuse diverticulosis of the sigmoid and descending colon EXAM: CT scan of the chest with contrast EXAM: CT scan of the abdomen and pelvis with contrast HISTORY: Chest [...] anatomy is present. The pulmonary arteries normalin size. Heart size is normal. No perica rdial effusion is present. Scatteredcoronary artery calcifications are [...] effusion ispresent. Changes of ankylosis are seen involvingthe thoracic spine. No acutefracture of the thoracic vertebral bodies is seen. The sternum appears araseli normal. Nondisplaced fractures are seen involving fourth through 12th ribs on theright. Associated subcutaneous emphysema is seen involving the right chestwall. CT SCAN OF THE ABDOMEN AND PELVIS:Liver, spleen, gallbladder, pancreas, adrenal glands and kidneys arenormal. No free fluid or free air is seen within the abdomen. No enlarged lymphnodes are noted. Abdominal aorta is normal in size. Dense atherosclerotic calcifications areseen in the aorta and all of its branches. The bowel loops are normal in caliber. No [...] the abdomen and pelvis with contrastHISTORY: Chest trauma,blunt, high energy, initial examTECHNIQUE:2 mm axial images are obtained from lung apices to the renea phragmsand 3 mm axial images are obtained from diaphragms to the symphysis pubisfollowing intravenous administration of 120 mL of Omnipaque 350. [place] coronal reformation is carried out.COMPARISON: NoneFINDINGS:CT SCAN OF THE CHEST:The thyroid gland is normal.Thoracic aorta is normal in size.There is no evidence of traumatic injuryto the thoracic aorta. Scattered atherosclerotic calcifications are noted.Classic three-vessel arch anatomy is present. The pulmonary arteries normalin size.Heart size is normal. No pericardial effusion is present. Scatteredcoronary artery calcifications are n oted.A few nonspecific lymph nodes are seen in the mediastinum, not enlarged byCT criteria.The trachea is normal in size. A small soft tissue density is seen to theright side of the upper trachea at the level of the sternoclavicularjoints.Centrilobular emphysematous changes are seen in both lungs. [...] is noted.Prostate gland and urinary bladder grossly normal.Scotty ateral inguinal hernia is seen with herniation of fat.Ankyloses of the thoracolumbar spine is seen.There is no evidence of anacute fracture.IMPRESSION1. Large [...] Diffuse diverticulosis of the sigmoid and descending colonUnParkview Regional HospitalCT TRAUMA ABDOMEN PELVIS W [id number] 17:59:251. Large right pneumothorax2. Nondisplaced fractures involving the right 4th through 12th ribs withassociated subcutaneous emphysema3. Small right pleural effusion, likely hemothorax related to rib fr actures4. Moderately severe centrilobular emphysematous changes with large bullaare noted in the para mediastinal area5. No acute traumatic injury to the organs of the abdomen or pelvis6. Diffuse diverticulosis of the sigmoid and descending colon EXAM: CT scan of the chest with contrast EXAM: CT scan of the abdomen and pelvis with contrast HISTORY: Chest [...] anatomy is present. The pulmonary arteries normalin size. Heart size is normal. No perica rdial effusion is present. Scatteredcoronary artery calcifications are [...] effusion ispresent. Changes of ankylosis are seen involvingthe thoracic spine. No acutefracture of the thoracic vertebral bodies is seen. The sternum appears araseli normal. Nondisplaced fractures are seen involving fourth through 12th ribs on theright. Associated subcutaneous emphysema is seen involving the right chestwall. CT SCAN OF THE ABDOMEN AND PELVIS:Liver, spleen, gallbladder, pancreas, adrenal glands and kidneys arenormal. No free fluid or free air is seen within the abdomen. No enlarged lymphnodes are noted. Abdominal aorta is normal in size. Dense atherosclerotic calcifications areseen in the aorta and all of its branches. The bowel loops are normal in caliber. No [...] the abdomen and pelvis with contrastHISTORY: Chest trauma,blunt, high energy, initial examTECHNIQUE:2 mm axial images are obtained from lung apices to the renea phragmsand 3 mm axial images are obtained from diaphragms to the symphysis pubisfollowing intravenous administration of 120 mL of Omnipaque 350. [place] coronal reformation is carried out.COMPARISON: NoneFINDINGS:CT SCAN OF THE CHEST:The thyroid gland is normal.Thoracic aorta is normal in size.There is no evidence of traumatic injuryto the thoracic aorta. Scattered atherosclerotic calcifications are noted.Classic three-vessel arch anatomy is present. The pulmonary arteries normalin size.Heart size is normal. No pericardial effusion is present. Scatteredcoronary artery calcifications are n oted.A few nonspecific lymph nodes are seen in the mediastinum, not enlarged byCT criteria.The trachea is normal in size. A small soft tissue density is seen to theright side of the upper trachea at the level of the sternoclavicularjoints.Centrilobular emphysematous changes are seen in both lungs. [...] is noted.Prostate gland and urinary bladder grossly normal.Scotty ateral inguinal hernia is seen with herniation of fat.Ankyloses of the thoracolumbar spine is seen.There is no evidence of anacute fracture.IMPRESSION1. Large [...] Diffuse diverticulosis of the sigmoid and descending colonUnParkview Regional HospitalXR CHEST 1 [id number] 17:45:46CHEST PORTABLE ONE VIEW HISTORY:Dyspnea, pneumothorax TECHNIQUE: Frontal, portable projection of the chest is obtained. FINDINGS: The lung apices are [...] Inft User - 02/11/2020 12:46 PM CDTCHEST PORTABLEONE VIEWHISTORY:Dyspnea, pneumothoraxTECHNIQUE: Frontal, portable projection of the chest is obtained.FINDINGS: The lung apices are not completely included on the study. Thelungs are clear. The heartsize and mediastinal silhouette are normal. Nopleural effusion is seen.A large right pneumothorax is seen. Also seen is subcutaneous emphysema inthe right chest wall.Nondisplaced fractures are suspected involving the fourth and fifth rightribs.CONCLUSIONS:Large right pneumothorax, right chest wall emphysema and nondisplaced ribfracturesFindings discussed with Dr. Hughes at 12:45 PM by phone on 02/11/2020[facility] [id number] 17:32:00* Test Item Value Reference Range Interpretation Comme nts TROPONIN I (test code = 8185130862) <0.012 See_Comment [Automated message] The system which generated this result transmitted reference range: <=0.034 ng/mL. The reference range was not used to interpret this result as normal/abnormal. LOREN (test code = LOREN) Equal or Less than 0.034 ng/ml---Normal ?Note: Cardiac troponin begins to [...] patient's use of biotin. ? Lab Interpretation (test code = 77743-7) Normal [facility] Metabolic Panel (NA, K, CL, CO2, GLUCOSE, BUN, CREATININE, CA)2020-02-11 17:21:00* Test Item Value Reference Range Interpretation Comme nts NA (test code = 8749568319) 139 mmol/L 135-145 K (test code = 1261052366) 4.6 mmol/L 3.5-5 CL (test code = 9908792531) 107 mmol/L 98-108 CO2 TOTAL (test code = 6818414205) 27 mmol/L 23-31 AGAP (test code = 6455609508) 2-16 BUN (test code = 9487221385) 22 mg/dL 7-23 GLUCOSE (test code = 0417655473) 166 mg/dL 70-110 H CREATININE (test code = 8812802258) 1.12 mg/dL 0.6-1.25 CALCIUM (test code = 7053515182) 9.4 mg/dL 8.6-10.6 eGFR Calculation (Non-) (test code = 6144517256) mL/min/1.73m2 eGFR Calculation () (test code = 0621505981) mL/min/1.73m2 LOREN (test code = LOREN) Association of [...] or abnormalities in imaging tests). Lab Interpretation (test code = 50723-3) Abnormal [facility] FallsHepatic Function Panel (ALB, T.PRO, BILI T, BU/BC, ALT, AST, ALK PHOS)2020-02-11 17:21:00* Test Item Value Reference Range Interpretation Comme nts TOTAL BILI (test code = 2884698062) 0.6 mg/dL 0.1-1.1 BILI UNCON (test code = 4307890104) 0.7 mg/dL 0.1-1.1 BILI CONJ (test code = 0531669999) 0.0 mg/dL 0-0.3 T PROTEIN (test code = 2790453870) 7.8 g/dL 6.3-8.2 ALBUMIN (test code = 3920595991) 4.4 g/dL 3.5-5 ALK PHOS (test code = 6094117088) 79 U/L 34-122 ALTv (test code = 1742-6) 43 U/L 5-50 AST(SGOT) (test code = 2980962634) 63 U/L 13-40 H Lab Interpretation (test cod e = 88398-9) Abnormal [facility] FallsProthrombin Time (PT) / [id number] 17:21:00 * Test Item Value Reference Range Interpretation Comme nts PROTIME PATIENT (test code = 5964-2) See_Comment [Automated GLIIF] The system which generated this result transmitted reference range: 12.0 - 14.7 Seconds. The reference range was not used to interpret this result as normal/abnormal. INR (test code = 6301-6) Normal INR <1.1; Warfarin Therapeutic range 2.0 to 3.0 or 2.5 to 3.5, depending upon the indications. Lab Interpretation (test code = 19012-0) Normal [facility] FallsaPTT2020-06-05 17:20:00* Test Item Value Reference Range Interpretation Comme nts APTT Patient (test code = 3173-2) See_Comment [Automated message] The system which generated this result transmitted reference range: 23 - 38 Seconds. The reference range was not used to interpret this result as normal/abnormal. LOREN (test code = LOREN) The [facility] patient population mean normal value for aPTT is 30 seconds. Lab Interpretation (test code = 76027-0) Normal [facility] FallsLipase [id number] 17:20:00* Test Item Value Reference Range Interpretation Comme [facility] LIPASE (test code = 9109704242) 118 U/L 0-220 Lab Interpretation (test cod e = 83543-0) Normal [facility] FallsCBC WITH [id number] 17:07:00* Test Item Value Reference Range Interpretation Comme [facility] WBC (test code = 6690-2) See_Comment [Automated SaveFans!a ge] The system which generated this result transmitted reference range: 4.20 - 10.70 10*3/?L. The reference range was not used to interpret this result as normal/abnormal. RBC (test code = 789-8) See_Comment [Automated [employer]!a ge] The system which generated this result transmitted reference range: 4.26 - 5.52 10*6/?L. The reference range was not used to interpret this result as normal/abnormal. HGB (test code = 718-7) 14.3 g/dL 12.2-16.4 HCT (test code = 4544-3) 42.0 % 38.4-49.3 MCV (test code = 787-2) 90.7 fL 81.7-95.6 MCH (test code = 785-6) 30.9 pg 26.1-32.7 MCHC (test code = 786-4) 34.0 g/dL 31.2-35 RDW-SD (test code = 91507-3) 45.1 fL 38.5-51.6 RDW-CV (test code = 788-0) 13.7 % 12.1-15.4 PLT (test code = 777-3) See_Comment [Automated messa ge] The system which generated this result transmitted reference range: 150 - 328 10*3/?L. The reference range was not used to interpret this result as normal/abnormal. MPV (test code = 19265-4) 10.5 fL 9.8-13 NRBC/100 WBC (test code = 9201883066) See_Comment [Automated me ssage] The system which generated this result transmitted reference range: 0.0 - 10.0 /100 WBCs. The reference range was not used to interpret this result as normal/abnormal. NRBC x10^3 (test code = 9854251722) <0.01 See_Comment [Automated me ssage] The system which generated this result transmitted reference range: 10*3/?L. The reference range was not used to interpret this result as normal/abnormal. GRAN MAT (NEUT) % (test code = 770-8) 73.2 % IMM GRAN % (test code = 7952033672) 0.90 % LYMPH % (test code = 736-9) 16.8 % MONO % (test code = 5905-5) 6.3 % EOS % (test code = 713-8) 2.1 % BASO % (test code = 706-2) 0.7 % GRAN MAT x10^3(ANC) (test code = 6096992555) 5.14 10*3/uL 1.99-6.95 IMM GRAN x10^3 (test code = 4669366303) 0.06 10*3/uL 0-0.06 LYMPH x10^3 (test code = 731-0) 1.18 10*3/uL 1.09-3.23 MONO x10^3 (test code = 742-7) 0.44 10*3/uL 0.36-1.02 EOS x10^3 (test code = 711-2) 0.15 10*3/uL 0.06-0.53 BASO x10^3 (test code = 704-7) 0.05 10*3/uL 0.01-0.09 [facility] Notes Date/Time Note Provider Source 2023-04-23 15:18:00 [id number]/[id number] sTo1iCLrk1ycKgJoLbRsqv9YofvHl CsGJQWVPr/kO9uuOYkkUfn4iyv78020-56-84Z13:18:56217 6-[address] [place] [address] PATIENT NAME: TEVIN NYE ADMIT DATE: 04/08/23ACCOUNT NO: [id number] ROOM NO: [id number] AGE: 73 REPORT TYPE: 360 - QUERY RESPONSE DOCUMENT SEX: M ADMITTING PHYSICIAN:Elvie Gamboa MD ATTENDING PHYSICIAN:Rojelio Magaña MD Provider Query QUERY TEXT: Condition General 360MD Query related questions should be directed to: [facility] Coding Query Helpline Based on your clincial judgment could you please confirm the etiology of SOB( Pulmonary Embolism, Acute on chronic hypoxemic respiratory failure, COPD No exacerbation.) The patient's Clinical Indicators include:ADT Medical Reason: SOB, CHEST PAIN.Pulmonology Progress Note 04/16/2023 (1)Free Text A P:COPD No exacerbation.Pulmonology Progress Note 04/19/2023 (1)Free Text A P:Acute on chronic hypoxemic respiratory failure.ECHOCARDIOGRAM 04/10/2023 (2)Findings:The estimated ejection fraction is 55-59%. Options provided:-- Respond - Create new note now-- Dismiss - Not applicable / Not valid-- Dismiss - Clinically unable to determine / Unknown-- Assign to another provider QUERY RESPONSE: Provider was clinically unable to determine a response for this query Query created by: CLARA KAHN on 04/23/2023 10:08 AM at 1518 PATIENT NAME: TEVIN NYE noteG.[id number] for patient otppLEVKSIHJKSNTYU4244-33-73J38:18:45 [facility] 2023-04-19 21:44:00 [id number]+6/IzTa x5XIeAVcS7hXAWYcX2uqdQvOsFAb7 +xUfK5chEcepUujqkynGLCXp7Lv8057-65-77Z56:44:00 [facility] ([facility])Hospitalist Discharge SummaryREPORT#:[id number] REPORT STATUS: SignedDATE:04/19/23 TIME: 2143 PATIENT: TEVIN NYE UNIT #: [id number]#: [id number] [address] AGE: 73 SEX: M ATTEND: Rojelio Magaña [facility] AUTHOR: Rojelio Magaña MD * ALL edits or amendments must be made on the electronic/computer document * General InformationDate of admission:Observation Start Date: Date of admission: 04/08/23 Discharge date: 04/19/23Admission diagnosis:SOB (presumed PE) anemia (pancytopenia)AKICOPDh/o CADs/p CABG X4 on 3DMHTNHLDProstate cancerpulmonary noduleDebilityiDischarge diagnosis:SOB (presumed PE) anemia (pancytopenia)AKICOPDh/o CADs/p CABG X4 on 3DMHTNHLDProstate cancerpulmonary noduleDebilityiHospital course:SOB (presumed PE) cardiology and pulmonary seenon 2.5 to 3 liters of oxygen per n/cecho wnlwill give lasix twenty mg one time dosecheck chest xray04/14- CXR on 04/13 was negative. pulmonary following. elevated D-dimer (presumed PE)V-Q scan with intermediate probabilityon therapeutic lovenox renally dosed for now04/14- pulmonary following...worsening anemia, but guiaiac negaive anemia (pancytopenia)04/14- hgb dropped to 8 today (9.7 two days ago). ask heme to see. h/o cancer. guiaiac negative. 04/15- hgb stable at 8. 8/9- hgb 7.3...bone marrow bx planned today?8/10 - hgb 7.5. s/p BM bx today. results pending. JERAMY with CKDrenal seenon IVFcreat improving COPDon home oxygen h/o CADs/p CABG X4 on 3CTS consulted and seen DMaccuchecks and SSI prncheck A1CBG controlled HTNbp controlledresumed home meds HLDon statinstable Prostate cancers/p XRT pulmonary nodule04/17 - need f/u in 3 months. Debilityper PT/OT could be a post acute rehab candidate consulted rehabrecommend IRF check labs in [facility] wi DR. Rinaldi 04/14- awiaitng tranfer to rehab. folow h/h. ask heme to see.04/15- h/h stable. cleared by GI to change lovenox to Eliquis if pulmonary wishes. 04/16- hgb 7.3. Bone marrow bx planned.04/17 - s/p bm bx today. results pending. hgb 7.5. on full dose lovenox. change to Eliquis when ok with pulmonary. need outpt f/u for pulmonary nodule. Pt is contemplating going home if no approval for rehab. 04/18 - doing better, more likely too high level for rehab. Plan to d/c home tomorrow with HH if ok will all MD's.04/19 - d/c home today Pt. condition on discharge: improved, stableAllergies:Allergies:Penicillins (Coded, USE COMMENT BUTTON, 03/03/23) Med Rec Med RecDischarge meds:Stop taking the following medications:METOPROLOL TARTRATE (LOPRESSOR) 25 MG TAB 25 MILLIGRAM ORAL EVERY 12 HOURS. Days = 30 Qty = 60 amLODIPine (NORVASC) 10 MG TAB 10 MILLIGRAM ORAL DAILY. Days = 30 Qty = 30 FUROSEMIDE (LASIX) 20 MG TAB 20 MILLIGRAM ORAL TWICE DAILY. SULFAMETHOXAZOLE/TMP (BACTRIM DS 800/160 MG) 800 MG-160 MG TAB 1 TABLET ORAL TWICE DAILY. HYDROCHLOROTHIAZIDE (HYDRODIURIL) 25 MG TAB 25 MILLIGRAM ORAL DAILY. LISINOPRIL (ZESTRIL) 20 MG TAB 20 MILLIGRAM ORAL DAILY. Continue taking these medications:OXYBUTYNIN (DITROPAN) 5 MG TAB 5 MILLIGRAM ORAL TWICE DAILY. TAMSULOSIN ER (FLOMAX) 0.4 MG CAP.SR.24H 0.8 MILLIGRAM ORAL BEDTIME. Qty = 2 FLUoxetine (PROzac) 10 MG CAP 10 MILLIGRAM ORAL EVERY MORNING. LATANOPROST (XALATAN 0.005% OPHTH SOLN) 0.005 % OPHTH.SOLN 1 DROPS EACH EYE BEDTIME. INSULIN LISPRO (HumaLOG KWIKPEN (3mL)) 100 UNIT/ML INSULN.PEN 6 INSULIN LISPRO (HumaLOG) 100 UNIT/ML VIAL 30 CALCIUM CARBONATE/VIT D3 (CALCIUM CARB/VIT D3 500 MG/200 UNITS) 500 MG CALCIUM-5MCG (200 UNIT) TAB 2 TABLET ORAL DAILY. CYANOCOBALAMIN (VITAMIN B-12) 100 MCG TAB 100 MICROGRAM ORAL DAILY. ATORVASTATIN (LIPITOR) 40 MG TAB 40 MILLIGRAM ORAL 2100 Days = 30 Qty = 30 ASPIRIN (ASPIRIN) 81 MG TAB.CHEW 81 MILLIGRAM ORAL DAILY. Days = 30 Qty = 30 BRIMONIDINE (ALPHAGAN 0.2% OPHTH SOLN) 0.2 % OPHTH.SOLN 1 DROPS EACH EYE TWICE DAILY. Start taking the following new medications:AMIODARONE (PACERONE) 200 MG TAB 200 MILLIGRAM ORAL DAILY. Qty = 30 No Refills METOPROLOL TARTRATE (LOPRESSOR) 50 MG TAB 50 MILLIGRAM ORAL TWICE DAILY. Qty = 60 Refills = 2 APIXABAN (ELIQUIS) 5 MG TAB 5 MILLIGRAM ORAL TWICE DAILY. Qty = 60 Refills = 4 ObjectiveVS/I OLast Documented: Result Date Time Pulse Ox 94 04/19 1105 O2 Delivery Room air 04/19 1105 B/P 119/56 04/19 0937 B/P Mean 76.8 04/19 0937 Pulse 69 04/19 0937 O2 Flow Rate 2.5 04/19 0800 Temp 97.7 04/19 727 Resp 15 04/19 07 FiO2 28 04/18 1948 General appearance: alert, awake, orientedHead/Eyes: atraumatic, clear cornea, EOMINeck: supple/no meningismusCardiovascular: normal heart sounds, regular rate rhythm, no gallop, no murmur, no rubRespiratory: aerating well, clear to auscultation, symmetric expansionAbdomen: non-tender, normal bowel sounds, soft, no distentionExtremities: no clubbing, no cyanosis, no edemaMusculoskeletal: normal inspection, painless range of motionNeuro/SALES ASSISTANT: alert, oriented X 3, CNII-XII intactSkin: dry, intactUlcer: Type/cause: scab left foot. ResultsFindings/Data:Laboratory Tests: 04/19 04/19 04/19 1111 0730 0330 Chemistry Sodium (134 - 147 mEq/L) 140 Potassium (3.4 - 5.0 mEq/L) 4.2 Chloride (100 - 108 mEq/L) 107 Carbon Dioxide (21 - 33 mEq/l) 26 Anion Gap (0 - 20) 12 BUN (7 - 18 mg/dL) 19 H Creatinine (0.6 - 1.3 mg/dL) 1.3 Glomerular Filtr Rate (70 - 80) 58.4 L Glucose (70 - 110 mg/dL) 164 H POC Glucose (70 - 110 MG/DL) 194 H 186 H Calcium (8.0 - 10.5 mg/dL) 8.2 Hematology WBC (4.5 - 11.0 x10 3/uL) 3.3 L RBC (4.00 - 5.60 x10 6/uL) 2.64 L Hgb (12.5 - 16.9 g/dL) 7.8 L Hct (37.5 - 50.7 %) 25.4 L MCV (81.0 - 99.0 fL) 96.2 MCH (27.0 - 33.0 pg) 29.5 MCHC (33.0 - 37.0 g/dL) 30.7 L RDW (11.5 - 14.5 %) 17.9 H Plt Count (150 - 400 x10 3/uL) 144 L MPV (7.0 - 9.0 fL) 11.5 H Neut % (Auto) (56.0 - 77.0 %) 73.0 Lymph % (Auto) (14.0 - 32.0 %) 12.6 L [place] % (Auto) (4.8 - 9.0 %) 10.7 H Eos % (Auto) (0.3 - 3.7 %) 2.5 Baso % (Auto) (0.0 - 2.0 %) 0.6 Neut # (Auto) (2.0 - 7.6 x10 3/uL) 2.38 Lymph # (Auto) (1.0 - 3.8 x10 3/uL) 0.41 L [place] # (Auto) (0.1 - 0.8 x10 3/uL) 0.35 Eos # (Auto) (0.0 - 0.2 x10 3/uL) 0.08 Baso # (Auto) (0.0 - 0.2 x10 3/uL) 0.02 Abs Immat Gran (auto) (0.00 - 0.03 x10 3/uL) 0.02 Add Manual Diff NO Immature Gran % (0.0 - 2.0 %) 0.6 Nucleated RBC % (0 - 0 %) 0.0 Nucleated RBCs # (Man) (0.0 - 0.1 x10 3/uL) 0.00 Discharge Instructions PCPPCP follow-up:PCP: Samuel Mcguire MD Discharge to: Home/Self CareAdditional Discharge Routines: PCP Follow-Up, Imaging Technologist Follow-UpDiet: DiabeticActivity: As Tolerated Follow-up AppointmentsPCP follow-up: PCP: Samuel Mcguire MD PCP follow up timeframe: In 2-3 weeksAttending Physician: Attending Physician: Rojelio Magaña MD Chlhtkrshr provider 1: Provider 1: Bienvenido Rinaldi MD Specialty: CardiologyInterventional Consult follow up timeframe: In 2-3 weeksConsulting provider 2: Provider 2: Dakota Arvizu MD Specialty: Hematology and Oncology Follow up timeframe: In 2-3 weeks Special instructions:f/u for anemia and bone avila biopsyConsulting provider 3: Provider 3: Sharmila Alan Specialty: Pulmonary Disease Follow up timeframe: In 4-5 weeks Special instructions:needs f/u for Pe and Pulmonary nodule Quality: Discharge Advanced Care Plan 65 or OlderDiscussed with: patientDiscussion included: living will (yes), power of sports attorney (yes), code status (full code) Current MedicationsCurrent medication review:I attest that the foregoing medication list in the medical record is true, accurate, and complete to the best of my knowledge. at 2148 RPT #:[id number] OF REPORTDSDischarge dozylqu7347-07-64O24:44:00G.[id number] ailable for patient wbayDITCKJSHBBBBYC4605-72-50V94:48:37 [facility] 2023-04-19 16:59:00 [id number] 6BvRJ2qgMWOzzMCso3QBOLmfY+lXb Qs4GIiN10VSk80TH6LmUISc9COu1227-47-50K74:59:00 [facility])Podiatry Progress NoteREPORT#:[id number] REPORT STATUS: SignedDATE:04/19/23 TIME: 1658 PATIENT: TEVIN NYE UNIT #: [id number]#: [id number] [address] [birth year] AGE: 73 SEX: M ATTEND: Rojelio Magaña [facility] AUTHOR: Andres Rachel DPM * ALL edits or amendments must be made on the electronic/computer document * SubjectiveChief complaint:left foot ulcerPatient reports: no confusion, no dizziness, no fever, no heartburn Objective GeneralVS:Last Documented: Result Date Time Pulse Ox 94 04/19 1105 O2 Delivery Room air 04/19 1105 B/P 119/56 04/19 0937 B/P Mean 76.8 04/19 937 Pulse 69 04/19 937 O2 Flow Rate 2.5 04/19 0800 Temp 36.5 04/19 727 Resp 15 04/19 727 FiO2 28 04/188 PATIENT WEIGHT: Weight (lb): Weight (oz): Weight (kg): 86.200 Medications:Active Meds + DC'd Last 24 HrsApixaban (ELIQUIS 5MG TABLET) 5 MG BID PO (DCD) Metoprolol Tartrate (LOPRESSOR) 50 MG BID PO (DCD) Amiodarone HCl (CORDARONE) 200 MG DAILY PO (DCD) Atorvastatin Calcium (LIPITOR) 40 MG 2100 PO (DCD) Lactulose (LACTULOSE) 20 GM BID PRN PRN PO (DCD) Sterile Water (WATER FOR IRRIGATION) DRESSING CHANGE ASDIR PRN IRR (DCD) Aspirin (ASPIRIN) 81 MG DAILY PO (DCD) Fluoxetine HCl (PROzac) 10 MG QAM PO (DCD) Insulin Human Lispro (HUMALOG) 0 AC HS SUBQ (DCD) Albuterol/Ipratropium (DUONEB) 3 ML RTQ4H NEB (DCD) Tamsulosin HCl (Flomax 0.4 mg) 0.8 MG BEDTIME PO (DCD) Acetaminophen (TYLENOL) 650 MG Q4H PRN PRN PO (DCD) Ondansetron HCl (ZOFRAN) 4 MG Q4H PRN PRN IV (DCD) Dietitian nutrition assessmentThe data set between the solid lines has been imported from the dietitian's assessment. BMI Calculated: 29.8Nutrition related diagnosis: Nutrition diagnosis details: Nutrition problem: Nutrition etiology: Nutrition signs and symptoms: Nutrition prescription: Dietitian name: Assessment completed: Physical ExamGeneral appearance: alert, awake, orientedWound/incision: Location:bilat foot Site condition: small pinpoint ulcer right foot. ulcer left forefoot dorsal. partial and full thickness. no erythema. no depth.LE vascular pulse assess:Nonpalpable R posterior tibialis, Nonpalpable L posterior tibialis, Nonpalpable R dorsalis pedis, Nonpalpable L dorsalis pedis ResultsFindings/Data:Laboratory Tests: 04/19 04/19 04/19 04/18 1111 0730 0330 2938 Chemistry Sodium (134 - 147 mEq/L) 140 Potassium (3.4 - 5.0 mEq/L) 4.2 Chloride (100 - 108 mEq/L) 107 Carbon Dioxide (21 - 33 mEq/l) 26 Anion Gap (0 - 20) 12 BUN (7 - 18 mg/dL) 19 H Creatinine (0.6 - 1.3 mg/dL) 1.3 Glomerular Filtr Rate (70 - 80) 58.4 L Glucose (70 - 110 mg/dL) 164 H POC Glucose (70 - 110 MG/DL) 194 H 186 H 203 H Calcium (8.0 - 10.5 mg/dL) 8.2 Hematology WBC (4.5 - 11.0 x10 3/uL) 3.3 L RBC (4.00 - 5.60 x10 6/uL) 2.64 L Hgb (12.5 - 16.9 g/dL) 7.8 L Hct (37.5 - 50.7 %) 25.4 L MCV (81.0 - 99.0 fL) 96.2 MCH (27.0 - 33.0 pg) 29.5 MCHC (33.0 - 37.0 g/dL) 30.7 L RDW (11.5 - 14.5 %) 17.9 H Plt Count (150 - 400 x10 3/uL) 144 L MPV (7.0 - 9.0 fL) 11.5 H Neut % (Auto) (56.0 - 77.0 %) 73.0 Lymph % (Auto) (14.0 - 32.0 %) 12.6 L [place] % (Auto) (4.8 - 9.0 %) 10.7 H Eos % (Auto) (0.3 - 3.7 %) 2.5 Baso % (Auto) (0.0 - 2.0 %) 0.6 Neut # (Auto) (2.0 - 7.6 x10 3/uL) 2.38 Lymph # (Auto) (1.0 - 3.8 x10 3/uL) 0.41 L [place] # (Auto) (0.1 - 0.8 x10 3/uL) 0.35 Eos # (Auto) (0.0 - 0.2 x10 3/uL) 0.08 Baso # (Auto) (0.0 - 0.2 x10 3/uL) 0.02 Abs Immat Gran (auto) (0.00 - 0.03 x10 3/uL) 0.02 Add Manual Diff NO Immature Gran % (0.0 - 2.0 %) 0.6 Nucleated RBC % (0 - 0 %) 0.0 Nucleated RBCs # (Man) (0.0 - 0.1 x10 3/uL) 0.00 Diagnosis, Assessment PlanFree Text A P:ulcer left foot.painPVD ulcer is benign...starting to peelcontinue local wound care.no xray found.venous u/s neg NIAS: pvd as expected.rec'd to pt prevalon boots.pt to go home today covering for Dr. [place] at 1700 RPT #:[id number] OF REPORTPRProgress [id number]:59:00G.[id number] able for patient folnMOHZSTYSPXXVSW7468-91-86Z46:00:57 [facility] 2023-04-19 15:40:00 [id number] y+Christy/KNSh1eqOn/GtPgEjJeXIimJ SEOCpnsoNJqU8KCFWgv/sc4qMxG5432-11-05T04:40:00 [facility] ([facility])Pulmonology Progress NoteREPORT#:[id number] REPORT STATUS: SignedDATE:04/19/23 TIME: 1540 PATIENT: TEVIN NYE UNIT #: [id number]#: [id number] [address] [birth year] AGE: 73 SEX: M ATTEND: Rojelio Magaña MDADM AUTHOR: Sharmila Alan * ALL edits or amendments must be made on the electronic/computer document * SubjectiveComments:On NC, no new complaints ROSAll systems rev neg: except as marked Objective GeneralVS/I O:Last Documented: Result Date Time Pulse Ox 94 04/19 1105 O2 Delivery Room air 04/19 1105 B/P 119/56 04/19 937 B/P Mean 76.8 04/19 937 Pulse 69 04/19 937 O2 Flow Rate 2.5 04/19 0800 Temp 36.5 04/19 07 Resp 15 04/19 727 FiO2 28 04/18 1948 PATIENT WEIGHT: Weight (lb): Weight (oz): Weight (kg): 86.200 Medications:Active Meds + DC'd Last 24 HrsApixaban (ELIQUIS 5MG TABLET) 5 MG BID PO Metoprolol Tartrate (LOPRESSOR) 50 MG BID PO Amiodarone HCl (CORDARONE) 200 MG DAILY PO Atorvastatin Calcium (LIPITOR) 40 MG 2100 PO Lactulose (LACTULOSE) 20 GM BID PRN PRN PO Sterile Water (WATER FOR IRRIGATION) DRESSING CHANGE ASDIR PRN IRR Aspirin (ASPIRIN) 81 MG DAILY PO Fluoxetine HCl (PROzac) 10 MG QAM PO Insulin Human Lispro (HUMALOG) 0 AC HS SUBQ Albuterol/Ipratropium (DUONEB) 3 ML RTQ4H NEB Tamsulosin HCl (Flomax 0.4 mg) 0.8 MG BEDTIME PO Acetaminophen (TYLENOL) 650 MG Q4H PRN PRN PO Ondansetron HCl (ZOFRAN) 4 MG Q4H PRN PRN IV Physical ExamGeneral appearance: alert, awake, oriented, no acute distressHead/eyes: atraumatic, normocephalic, PERRL, EOMINeck: no JVD, no lymphadenopathyCardiovascular: normal heart sounds, normal S1/S2, regular rate rhythmRespiratory/chest: decreased breath sounds, on oxygen, aerating well, symmetric expansionAbdomen: soft, no guardingExtremities: moves all, no clubbing, no cyanosis, no edemaNeuro/SALES ASSISTANT: CNII-XII intactSkin: dry, intactUlcer: Type/cause: scab left foot.Psychiatry: normal affect, normal judgment/insight, normal mood ResultsFindings/Data:Laboratory Tests 04/19/23 0330:[Embedded Image Not Available]Laboratory Tests 04/19 04/19 04/19 04/18 1111 0730 0330 1931 Chemistry Sodium (134 - 147 mEq/L) 140 Potassium (3.4 - 5.0 mEq/L) 4.2 Chloride (100 - 108 mEq/L) 107 Carbon Dioxide (21 - 33 mEq/l) 26 Anion Gap (0 - 20) 12 BUN (7 - 18 mg/dL) 19 H Creatinine (0.6 - 1.3 mg/dL) 1.3 Glomerular Filtr Rate (70 - 80) 58.4 L Glucose (70 - 110 mg/dL) 164 H POC Glucose (70 - 110 MG/DL) 194 H 186 H 203 H Calcium (8.0 - 10.5 mg/dL) 8.2 Laboratory Tests 04/19 0330 Hematology WBC (4.5 - 11.0 x10 3/uL) 3.3 L RBC (4.00 - 5.60 x10 6/uL) 2.64 L Hgb (12.5 - 16.9 g/dL) 7.8 L Hct (37.5 - 50.7 %) 25.4 L MCV (81.0 - 99.0 fL) 96.2 MCH (27.0 - 33.0 pg) 29.5 MCHC (33.0 - 37.0 g/dL) 30.7 L RDW (11.5 - 14.5 %) 17.9 H Plt Count (150 - 400 x10 3/uL) 144 L MPV (7.0 - 9.0 fL) 11.5 H Neut % (Auto) (56.0 - 77.0 %) 73.0 Lymph % (Auto) (14.0 - 32.0 %) 12.6 L [place] % (Auto) (4.8 - 9.0 %) 10.7 H Eos % (Auto) (0.3 - 3.7 %) 2.5 Baso % (Auto) (0.0 - 2.0 %) 0.6 Neut # (Auto) (2.0 - 7.6 x10 3/uL) 2.38 Lymph # (Auto) (1.0 - 3.8 x10 3/uL) 0.41 L [place] # (Auto) (0.1 - 0.8 x10 3/uL) 0.35 Eos # (Auto) (0.0 - 0.2 x10 3/uL) 0.08 Baso # (Auto) (0.0 - 0.2 x10 3/uL) 0.02 Abs Immat Gran (auto) (0.00 - 0.03 x10 3/uL) 0.02 Add Manual Diff NO Immature Gran % (0.0 - 2.0 %) 0.6 Nucleated RBC % (0 - 0 %) 0.0 Nucleated RBCs # (Man) (0.0 - 0.1 x10 3/uL) 0.00 Diagnosis, Assessment PlanFree Text A P:Acute on chronic hypoxemic respiratory failure supplemental O2 as needed and wean as tolerated Pulmonary embolism Initially diagnosed in November 2022 at outside hospital; was on Eliquis from diagnosis through February. CTA chest 03/03/2023 was negative for pulmonary embolism. Patient was discharged home 03/13/2023 and told to discontinue taking Eliquis.-D-dimer 1496. -VQ scan with intermediate probability. 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 Check bilateral lower extremity Dopplers -> neg-Renally dose lovenox @ 1mg/kg once daily -d/w cardio. will ultimately AC with eliquis ASA. Off plavix. COPD No exacerbation. On Combivent and ipratropium nebs at home.-May need repeat pulmonary function test outpatient. [facility] due [facility] issues with [facility] RLL nodule CT chest 03/03/2023. 1.5 x 0.8 cm nodular opacity in RLL needs follow-up in 3 months CAD / PAD S/p CABG 03/04/2023 Cardiothoracic surgery following Echo noted JERAMY/CKD Nephrology consult Strict I O. 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 S/P BMB per Heme PT/OTRehab eval- Heme recs noted. Switched to Eliquis - F/U in office for repeat CT scan in 2-4 weeks at 1542 RPT #:[id number] OF REPORTPRProgress [id number]:40:00G.[id number] able for patient huhnDKHJESJGIQDBBV6906-19-35Z74:42:55 [facility] 2023-04-19 15:10:00 [id number] SjIH5qTEQNYvKemqkjqPgeJ/f5YUB IOtvGRQ4EIpb3eXh3G8vKOUKb/C7554-63-25G10:10:00 [facility] ([facility])Avery/Oncology Progress NoteREPORT#:[id number] REPORT STATUS: SignedDATE:04/19/23 TIME: 1510 PATIENT: TEVIN NYE UNIT #: [id number]#: [id number] [address] [birth year] AGE: 73 SEX: M ATTEND: Rojelio Magaña [facility] AUTHOR: Dakota Arvizu MD * ALL edits or amendments must be made on the electronic/computer document * SubjectiveChief Complaint:Doing better. Objective Physical ExamVS:Vital Signs Date Temp Pulse Resp B/P B/P Mean Pulse Ox FiO2 04/18-04/19 36.5-36.8 56-77 14-16 110-173/55-71 74.4-94.1 94-100 28 Last Documented: Result Date Time Pulse Ox 94 04/19 1105 O2 Delivery Room air 04/19 1105 B/P 119/56 04/19 0937 B/P Mean 76.8 04/19 0937 Pulse 69 04/19 0937 O2 Flow Rate 2 04/19 0800 Temp 36.5 04/19 0727 Resp 15 04/19 0727 FiO2 28 04/18 1948 General appearance: alert, awakeHEENT: atraumatic, normocephalicNeck: full range of motion, non-tender, supple/no meningismus, no JVD, no lymphadenopathyCardiovascular: regular rate and rhythmRespiratory: clear to auscultationAbdomen: non-tender, normal bowel sounds, soft, no distention, no guarding, no mass/organomegaly, no reboundExtremities: moves all, normal capillary refill, no edemaMusculoskeletal: full range of motion, normal inspectionNeuro/SALES ASSISTANT: alert, oriented X 3Ulcer: Type/cause: scab left foot. ResultsFindings/Data:Laboratory Tests 04/19/23 0330:[Embedded Image Not Available]Laboratory Tests 04/19 04/19 04/19 04/18 04/18 1111 0730 0330 1931 1520 Chemistry Sodium (134 - 147 mEq/L) 140 Potassium (3.4 - 5.0 mEq/L) 4.2 Chloride (100 - 108 mEq/L) 107 Carbon Dioxide (21 - 33 mEq/l) 26 Anion Gap (0 - 20) 12 BUN (7 - 18 mg/dL) 19 H Creatinine (0.6 - 1.3 mg/dL) 1.3 Glomerular Filtr Rate (70 - 80) 58.4 L Glucose (70 - 110 mg/dL) 164 H POC Glucose (70 - 110 MG/DL) 194 H 186 H 203 H 195 H Calcium (8.0 - 10.5 mg/dL) 8.2 Laboratory Tests 04/19 0330 Hematology WBC (4.5 - 11.0 x10 3/uL) 3.3 L RBC (4.00 - 5.60 x10 6/uL) 2.64 L Hgb (12.5 - 16.9 g/dL) 7.8 L Hct (37.5 - 50.7 %) 25.4 L MCV (81.0 - 99.0 fL) 96.2 MCH (27.0 - 33.0 pg) 29.5 MCHC (33.0 - 37.0 g/dL) 30.7 L RDW (11.5 - 14.5 %) 17.9 H Plt Count (150 - 400 x10 3/uL) 144 L MPV (7.0 - 9.0 fL) 11.5 H Neut % (Auto) (56.0 - 77.0 %) 73.0 Lymph % (Auto) (14.0 - 32.0 %) 12.6 L [place] % (Auto) (4.8 - 9.0 %) 10.7 H Eos % (Auto) (0.3 - 3.7 %) 2.5 Baso % (Auto) (0.0 - 2.0 %) 0.6 Neut # (Auto) (2.0 - 7.6 x10 3/uL) 2.38 Lymph # (Auto) (1.0 - 3.8 x10 3/uL) 0.41 L [place] # (Auto) (0.1 - 0.8 x10 3/uL) 0.35 Eos # (Auto) (0.0 - 0.2 x10 3/uL) 0.08 Baso # (Auto) (0.0 - 0.2 x10 3/uL) 0.02 Abs Immat Gran (auto) (0.00 - 0.03 x10 3/uL) 0.02 Add Manual Diff NO Immature Gran % (0.0 - 2.0 %) 0.6 Nucleated RBC % (0 - 0 %) 0.0 Nucleated RBCs # (Man) (0.0 - 0.1 x10 3/uL) 0.00 Radiology data:Current Medications Sig/Yas Start time Last Medication Dose Route Stop Time Status Admin Apixaban 5 MG BID 04/18 2100 AC 04/19 PO 05/18 2059 09 Metoprolol Tartrate 50 MG BID 04/18 2100 AC 04/19 PO 05/10 1359 0936 Amiodarone HCl 200 MG DAILY 04/14 09 AC 04/19 PO 05/14 0859 0911 Atorvastatin Calcium 40 MG 2100 04/09 2100 AC 04/18 PO 05/09 2059 213 Lactulose 20 GM BID PRN PRN 04/09 1900 AC 04/09 PO 05/09 1859 1933 Sterile Water See Dose ASDIR PRN 04/09 1230 AC Insts (1) IRR 05/09 1229 Aspirin 81 MG DAILY 04/09 1015 AC 04/19 PO 05/09 1014 0911 Fluoxetine HCl 10 MG QAM 04/09 0900 AC 04/19 PO 05/09 0859 0911 Insulin Human Lispro 0 AC HS 04/09 0730 AC 04/19 SUBQ 05/09 0729 1213 Albuterol/Ipratropium 3 ML RTQ4H 04/09 0000 AC 04/19 NEB 05/09 0000 1106 Tamsulosin HCl 0.8 MG BEDTIME 04/08 2300 AC 04/18 PO 05/08 2259 2134 Acetaminophen 650 MG Q4H PRN PRN 04/08 1800 AC 04/13 PO 05/08 1759 2147 Ondansetron HCl 4 MG Q4H PRN PRN 04/08 1800 AC IV 05/08 175 Dose Instructions:(1)Sterile Water: DRESSING CHANGE Results: labs reviewed, vital signs stable Diagnosis, Assessment Plan Free Text DxA P NotesFree Text DxA P Notes:ASSESSMENT:* Normocytic, hypochromic anemia. This seems to be an anemia of chronic disease. With iron panel being normal it is less likely to be GI blood loss. Considering his leukopenia I suspect that he may be developing underlying primary bone marrow disease such as MDS.* Recurrent pulmonary embolism based on intermediate probability VQ scan.* History of coronary artery disease, status post 2 coronary artery bypass graftsurgery. PLAN:* Continues to have persistent normocytic, hypochromic anemia and leukopenia. Discussed with the patient that I am concerned that he may be developing any primary bone marrow disease such as MDS. Therefore have recommended a bone marrow aspiration and biopsy for further evaluation. He is agreeable to this plan.* Monitor CBC.* Patient may need to continue with anticoagulation considering benefits more than the risk.* Apparently his lower GI bleed is associated with constipation.* I will continue to follow. 8/9Counts continue to be low.Bone marrow aspiration biopsy ordered, pending.Continue to follow. 8/10Status post bone marrow aspiration and biopsy today.Counts remain low but stable.Await biopsy results.Continue with Eliquis for anticoagulation. Discussed with the patient that he needs to take that on a long-term basis. 8/11Counts remain low but stable.Okay for discharge from hematology.Should continue with Eliquis for anticoagulation on a long-term basis.We will plan for outpatient follow-up in 1 week. 8/12Has remained stable.Counts have remained stable as well.Okay for discharge from hematology.We will plan for outpatient follow-up. at 1511 [facility] #:[id number] OF REPORTPRProgress [id number]:10:00G.[id number] able for patient ygivCBEEAWZVFSCCRO6389-84-51P75:11:49 [facility] 2023-04-19 08:50:00 [id number] W2pC4EZPpp4dqQjNmrT7VASIyJxQd DtAHz2iL3JNap5i/2qlgFYbv0mj2858-78-80V42:50:00 [facility] ([facility])Nephrology Progress NoteREPORT#:[id number] REPORT STATUS: SignedDATE:04/19/23 TIME: 0850 PATIENT: TEVIN NYE UNIT #: [id number]#: [id number] [address] [birth year] AGE: 73 SEX: M ATTEND: Rojelio Magaña MDA AUTHOR: Monserrat Bobo MD * ALL edits or amendments must be made on the electronic/computer document * SubjectiveChief complaint:Follow-up of acute renal failure, ATN/AIN Review of SystemsConstitutional:Reports: generalized weakness. All systems rev neg: except as marked Objective GeneralVS/I O:Vital Signs: Date Time Temp Pulse Resp B/P B/P Pulse O2 O2 Flow FiO2 Mean Ox Delivery Rate 04/19 0727 97.7 56 15 110/57 74.4 98 04/19 0406 98.2 58 14 139/71 93.8 97 04/19 0016 2.5 04/18 2348 97.7 63 14 128/62 84.0 100 04/18 1948 96 Nasal 2 28 cannula 04/18 1933 97.9 77 16 173/55 94.1 97 04/18 1519 98.2 71 15 144/56 85.3 98 Room air 04/18 1050 98.1 76 15 147/55 85.9 97 Room air 04/18 0944 99 Nasal 2 cannula PATIENT WEIGHT: Weight (lb): Weight (oz): Weight (kg): 86.200 MedicationsActive Meds + DC'd Last 24 HrsApixaban (ELIQUIS 5MG TABLET) 5 MG BID PO Metoprolol Tartrate (LOPRESSOR) 50 MG BID PO Enoxaparin Sodium (lovENOX) 70 MG 0800,1999 SUBQ (DC) Amiodarone HCl (CORDARONE) 200 MG DAILY PO Metoprolol Tartrate (LOPRESSOR) 25 MG Q8HR PO (DC) Atorvastatin Calcium (LIPITOR) 40 MG 2100 PO Lactulose (LACTULOSE) 20 GM BID PRN PRN PO Miscellaneous Information ([facility] TO [facility]SE) 1 EACH ASDIR SUBQ (DC) Sterile Water (WATER FOR IRRIGATION) DRESSING CHANGE ASDIR PRN IRR Aspirin (ASPIRIN) 81 MG DAILY PO Fluoxetine HCl (PROzac) 10 MG QAM PO Insulin Human Lispro (HUMALOG) 0 AC HS SUBQ Albuterol/Ipratropium (DUONEB) 3 ML RTQ4H NEB Tamsulosin HCl (Flomax 0.4 mg) 0.8 MG BEDTIME PO Acetaminophen (TYLENOL) 650 MG Q4H PRN PRN PO Ondansetron HCl (ZOFRAN) 4 MG Q4H PRN PRN IV Physical ExamGeneral appearance: alert, awake, orientedHead/eyes: atraumatic, normocephalicENT: moist mucous membranesNeck: supple/no meningismus, no JVDCardiovascular: normal heart sounds, no rubRespiratory: aerating well, clear to auscultation, no distressGenitourinary: no bladder distentionExtremities: no edemaUlcer: Type/cause: scab left foot. ResultsFindings/Data:Laboratory Tests 04/19 04/19 04/18 04/18 04/18 0730 0330 1931 1520 1051 Chemistry Sodium (134 - 147 mEq/L) 140 Potassium (3.4 - 5.0 mEq/L) 4.2 Chloride (100 - 108 mEq/L) 107 Carbon Dioxide (21 - 33 mEq/l) 26 Anion Gap (0 - 20) 12 BUN (7 - 18 mg/dL) 19 H Creatinine (0.6 - 1.3 mg/dL) 1.3 Glomerular Filtr Rate (70 - 80) 58.4 L Glucose (70 - 110 mg/dL) 164 H POC Glucose (70 - 110 MG/DL) 186 H 203 H 195 H 247 H Calcium (8.0 - 10.5 mg/dL) 8.2 Laboratory Tests 04/19 0330 Hematology WBC (4.5 - 11.0 x10 3/uL) 3.3 L RBC (4.00 - 5.60 x10 6/uL) 2.64 L Hgb (12.5 - 16.9 g/dL) 7.8 L Hct (37.5 - 50.7 %) 25.4 L MCV (81.0 - 99.0 fL) 96.2 MCH (27.0 - 33.0 pg) 29.5 MCHC (33.0 - 37.0 g/dL) 30.7 L RDW (11.5 - 14.5 %) 17.9 H Plt Count (150 - 400 x10 3/uL) 144 L MPV (7.0 - 9.0 fL) 11.5 H Neut % (Auto) (56.0 - 77.0 %) 73.0 Lymph % (Auto) (14.0 - 32.0 %) 12.6 L [place] % (Auto) (4.8 - 9.0 %) 10.7 H Eos % (Auto) (0.3 - 3.7 %) 2.5 Baso % (Auto) (0.0 - 2.0 %) 0.6 Neut # (Auto) (2.0 - 7.6 x10 3/uL) 2.38 Lymph # (Auto) (1.0 - 3.8 x10 3/uL) 0.41 L [place] # (Auto) (0.1 - 0.8 x10 3/uL) 0.35 Eos # (Auto) (0.0 - 0.2 x10 3/uL) 0.08 Baso # (Auto) (0.0 - 0.2 x10 3/uL) 0.02 Abs Immat Gran (auto) (0.00 - 0.03 x10 3/uL) 0.02 Add Manual Diff NO Immature Gran % (0.0 - 2.0 %) 0.6 Nucleated RBC % (0 - 0 %) 0.0 Nucleated RBCs # (Man) (0.0 - 0.1 x10 3/uL) 0.00 Diagnosis, Assessment PlanFree Text A P:Assessment/plan:1. Acute renal failure most likely secondary to volume depletion, overdiuresis and ATN/AIN with Bactrim and lisinopril on board. JERAMY resolved. Creatinine at baseline, 2.9-2.4-1.9 > 1.2 >1.3>1.4>1.3. 2. CKD stage IIIa Cr 1.4, stable today 2. Coronary artery disease: Status post CABG, continue home medications 3. COPD: Symptomatic treatment 4. History of prostate cancer, s/p radiation 2021 5. Anemia: Requested stool occult blood-not sent yet, and iron studies reviewed-ok, transfuse as needed for hemoglobin less than 7. Hematology following, sp bone marrow biopsy at 1453 RPT #:[id number] OF REPORTPRProgress [id number]:50:00G.[id number] able for patient saqlDQYUJPKCKYYLEU1468-61-15F84:53:16 [facility] 2023-04-18 22:13:00 [id number] Snrhz6S9rPhf63OTInRpCoEunP6n6 ao4lQqEckBqL9aREEFDSl4UYL/o2305-99-97R54:13:00 [facility] Progress NoteREPORT#:[id number] REPORT STATUS: SignedDATE:04/18/23 TIME: 2212 PATIENT: TEVIN NYE UNIT #: [id number]#: [id number] [address] [birth year] AGE: 73 SEX: M ATTEND: Rojelio Magaña MDADM AUTHOR: Andres Rachel DPM * ALL edits or amendments must be made on the electronic/computer document * SubjectiveChief complaint:left foot ulcerPatient reports: no confusion, no diarrhea, no dizziness, no itching, no nauseaComments:pt very pleasant. doesnt have prevalon boots.is interested. dressing had fallen off of the foot. pt has pain. only takes tylenol. on exam: ulcer dorsal left forefoot with scabbing.dry peeling necrosisulcer is getting smaller and smaller Objective GeneralVS:Last Documented: Result Date Time Pulse Ox 96 04/18 1948 FiO2 28 04/18 1948 O2 Delivery Nasal cannula 04/18 1948 O2 Flow Rate 2 04/18 1948 B/P 173/55 04/18 1933 B/P Mean 94.1 04/18 1933 Temp 36.6 04/18 1933 Pulse 77 04/18 1933 Resp 16 04/18 1933 PATIENT WEIGHT: Weight (lb): Weight (oz): Weight (kg): 86.200 Medications:Active Meds + DC'd Last 24 HrsApixaban (ELIQUIS 5MG TABLET) 5 MG BID PO Metoprolol Tartrate (LOPRESSOR) 50 MG BID PO Enoxaparin Sodium (lovENOX) 70 MG 0800,2000 SUBQ (DC) Amiodarone HCl (CORDARONE) 200 MG DAILY PO Metoprolol Tartrate (LOPRESSOR) 25 MG Q8HR PO (DC) Atorvastatin Calcium (LIPITOR) 40 MG 2100 PO Lactulose (LACTULOSE) 20 GM BID PRN PRN PO Miscellaneous Information (LOVENOX PHARMACY TO DOSE) 1 EACH ASDIR SUBQ (DC) Sterile Water (WATER FOR IRRIGATION) DRESSING CHANGE ASDIR PRN IRR Aspirin (ASPIRIN) 81 MG DAILY PO Fluoxetine HCl (PROzac) 10 MG QAM PO Insulin Human Lispro (HUMALOG) 0 AC HS SUBQ Albuterol/Ipratropium (DUONEB) 3 ML RTQ4H NEB Tamsulosin HCl (Flomax 0.4 mg) 0.8 MG BEDTIME PO Acetaminophen (TYLENOL) 650 MG Q4H PRN PRN PO Ondansetron HCl (ZOFRAN) 4 MG Q4H PRN PRN IV I O:24 hour I O ending at 0700: 0811 0700 08/ 1900 Intake Total Output Total 200 Balance -200 Number Voids 1 Output, Urine 200 Dietitian nutrition assessmentThe data set between the solid lines has been imported from the dietitian's assessment. BMI Calculated: 29.8Nutrition related diagnosis: Nutrition diagnosis details: Nutrition problem: Nutrition etiology: Nutrition signs and symptoms: Nutrition prescription: Dietitian name: Assessment completed: Physical ExamGeneral appearance: alert, awake, orientedWound/incision: Location:bilat foot Site condition: small pinpoint ulcer right foot. ulcer left forefoot dorsal. partial and full thickness. no erythema. no depth.LE vascular pulse assess:Nonpalpable R posterior tibialis, Nonpalpable L posterior tibialis, Nonpalpable R dorsalis pedis, Nonpalpable L dorsalis pedis ResultsFindings/Data:Laboratory Tests: 04/18 04/18 04/18 04/18 04/18 1931 1520 1051 0737 0731Chemistry Sodium (134 - 147 mEq/L) 139 Potassium (3.4 - 5.0 mEq/L) 4.6 Chloride (100 - 108 mEq/L) 107 Carbon Dioxide (21 - 33 mEq/l) 24 Anion Gap (0 - 20) 12 BUN (7 - 18 mg/dL) 19 H Creatinine (0.6 - 1.3 mg/dL) 1.3 Glomerular Filtr Rate (70 - 80) 58.4 L Glucose (70 - 110 mg/dL) 199 H POC Glucose (70 - 110 MG/DL) 203 H 195 H 247 H 196 H Calcium (8.0 - 10.5 mg/dL) 8.3Hematology WBC (4.5 - 11.0 x10 3/uL) 3.7 L RBC (4.00 - 5.60 x10 6/uL) 2.62 L Hgb (12.5 - 16.9 g/dL) 7.7 L Hct (37.5 - 50.7 %) 25.0 L MCV (81.0 - 99.0 fL) 95.4 MCH (27.0 - 33.0 pg) 29.4 MCHC (33.0 - 37.0 g/dL) 30.8 L RDW (11.5 - 14.5 %) 18.1 H Plt Count (150 - 400 x10 3/uL) 139 L MPV (7.0 - 9.0 fL) 10.7 H Neut % (Auto) (56.0 - 77.0 %) 74.4 Lymph % (Auto) (14.0 - 32.0 %) 12.4 L [place] % (Auto) (4.8 - 9.0 %) 9.7 H Eos % (Auto) (0.3 - 3.7 %) 1.9 Baso % (Auto) (0.0 - 2.0 %) 0.8 Neut # (Auto) (2.0 - 7.6 x10 3/uL) 2.75 Lymph # (Auto) (1.0 - 3.8 x10 3/uL) 0.46 L [place] # (Auto) (0.1 - 0.8 x10 3/uL) 0.36 Eos # (Auto) (0.0 - 0.2 x10 3/uL) 0.07 Baso # (Auto) (0.0 - 0.2 x10 3/uL) 0.03 Abs Immat Gran (auto) (0.00 - 0.03 0.03x10 3/uL) Add Manual Diff NO Immature Gran % (0.0 - 2.0 %) 0.8 Nucleated RBC % (0 - 0 %) 0.0 Nucleated RBCs # (Man) (0.0 - 0.1 0.00x10 3/uL) Diagnosis, Assessment PlanFree Text A P:ulcer left foot.painPVD ulcer is benign...starting to peelcontinue local wound care.no xray found.venous u/s neg NIAS: pvd as expected.rec'd to pt prevalon boots. covering for Dr. [place] at 2215 RPT #:[id number] OF REPORTPRProgress [id number]:13:00G.[id number] able for patient rdqaQGMKKCTISATUNJ3654-73-62B18:15:34 [facility] 2023-04-18 17:26:00 [id number] GcEUqinT6cIf9mc2yw7McfnR4heG5 2y9qcDxR+istCm3uzppU9TGrIzC1371-58-79D97:26:00 [facility] ([facility])Avery/Oncology Progress NoteREPORT#:[id number] REPORT STATUS: SignedDATE:04/18/23 TIME: 1726 PATIENT: TEVIN NYE UNIT #: [id number]#: [id number] ROOM[facility]BED: [facility]DOB: [birth year] AGE: 73 SEX: M ATTEND: Rojelio Magaña [facility] AUTHOR: Dakota Arvizu MD * ALL edits or amendments must be made on the electronic/computer document * SubjectiveChief Complaint:Doing better. Objective Physical ExamVS:Vital Signs Date Temp Pulse Resp B/P B/P Mean Pulse Ox FiO2 04/17-04/18 36.4-36.8 62-85 14-16 109-147/52-66 70.7-86.2 95-99 28 Last Documented: Result Date Time Pulse Ox 98 04/18 1519 B/P 144/56 04/18 1519 B/P Mean 85.3 04/18 1519 O2 Delivery Room air 04/18 1519 Temp 36.8 04/18 1519 Pulse 71 04/18 1519 Resp 15 04/18 1519 O2 Flow Rate 2 04/18 0944 FiO2 28 04/17 2053 General appearance: alert, awakeHEENT: atraumatic, normocephalicNeck: full range of motion, non-tender, supple/no meningismus, no JVD, no lymphadenopathyCardiovascular: regular rate and rhythmRespiratory: clear to auscultationAbdomen: non-tender, normal bowel sounds, soft, no distention, no guarding, no mass/organomegaly, no reboundExtremities: moves all, normal capillary refill, no edemaMusculoskeletal: full range of motion, normal inspectionNeuro/SALES ASSISTANT: alert, oriented X 3Ulcer: Type/cause: scab left foot. ResultsFindings/Data:Laboratory Tests 04/18/23 0737:[Embedded Image Not Available]Laboratory Tests 04/18 04/18 04/18 04/18 04/17 1520 1051 0737 0733 1922 Chemistry Sodium (134 - 147 mEq/L) 139 Potassium (3.4 - 5.0 mEq/L) 4.6 Chloride (100 - 108 mEq/L) 107 Carbon Dioxide (21 - 33 mEq/l) 24 Anion Gap (0 - 20) 12 BUN (7 - 18 mg/dL) 19 H Creatinine (0.6 - 1.3 mg/dL) 1.3 Glomerular Filtr Rate (70 - 80) 58.4 L Glucose (70 - 110 mg/dL) 199 H POC Glucose (70 - 110 MG/DL) 195 H 247 H 196 H 203 H Calcium (8.0 - 10.5 mg/dL) 8.3 Laboratory Tests 04/18 0737 Hematology WBC (4.5 - 11.0 x10 3/uL) 3.7 L RBC (4.00 - 5.60 x10 6/uL) 2.62 L Hgb (12.5 - 16.9 g/dL) 7.7 L Hct (37.5 - 50.7 %) 25.0 L MCV (81.0 - 99.0 fL) 95.4 MCH (27.0 - 33.0 pg) 29.4 MCHC (33.0 - 37.0 g/dL) 30.8 L RDW (11.5 - 14.5 %) 18.1 H Plt Count (150 - 400 x10 3/uL) 139 L MPV (7.0 - 9.0 fL) 10.7 H Neut % (Auto) (56.0 - 77.0 %) 74.4 Lymph % (Auto) (14.0 - 32.0 %) 12.4 L [place] % (Auto) (4.8 - 9.0 %) 9.7 H Eos % (Auto) (0.3 - 3.7 %) 1.9 Baso % (Auto) (0.0 - 2.0 %) 0.8 Neut # (Auto) (2.0 - 7.6 x10 3/uL) 2.75 Lymph # (Auto) (1.0 - 3.8 x10 3/uL) 0.46 L [place] # (Auto) (0.1 - 0.8 x10 3/uL) 0.36 Eos # (Auto) (0.0 - 0.2 x10 3/uL) 0.07 Baso # (Auto) (0.0 - 0.2 x10 3/uL) 0.03 Abs Immat Gran (auto) (0.00 - 0.03 x10 3/uL) 0.03 Add Manual Diff NO Immature Gran % (0.0 - 2.0 %) 0.8 Nucleated RBC % (0 - 0 %) 0.0 Nucleated RBCs # (Man) (0.0 - 0.1 x10 3/uL) 0.00 Radiology data:Current Medications Sig/Yas Start time Last Medication Dose Route Stop Time Status Admin Apixaban 5 MG BID 04/18 2100 AC PO 05/18 205 Metoprolol Tartrate 50 MG BID 04/18 2100 AC PO 05/10 1359 Enoxaparin Sodium 70 MG 08,04/15 DC 04/18 SUBQ 05/15 1959 1100 Amiodarone HCl 200 MG DAILY 04/14 09 AC 04/18 PO 05/14 0859 1045 Metoprolol Tartrate 25 MG Q8HR 04/10 1400 DC 04/18 PO 05/08 2259 0514 Atorvastatin Calcium 40 MG 2100 04/09 2100 AC 04/17 PO 05/09 2059 2212 Lactulose 20 GM BID PRN PRN 04/09 1900 AC 04/09 PO 05/09 1859 1933 Miscellaneous 1 EACH ASDIR 04/09 1530 DC Information SUBQ 05/16 1529 Sterile Water See Dose ASDIR PRN 04/09 1230 AC Insts (1) IRR 05/09 1229 Aspirin 81 MG DAILY 04/09 1015 AC 04/18 PO 05/09 1014 1045 Fluoxetine HCl 10 MG QAM 04/09 0900 AC 04/18 PO 05/09 0859 1045 Insulin Human Lispro 0 AC HS 04/09 0730 AC 04/18 SUBQ 05/09 0729 1105 Albuterol/Ipratropium 3 ML RTQ4H 04/09 0000 AC 04/18 NEB 05/09 0000 1453 Tamsulosin HCl 0.8 MG BEDTIME 04/08 2300 AC 04/17 PO 05/08 2259 2212 Acetaminophen 650 MG Q4H PRN PRN 04/08 1800 AC 04/13 PO 05/08 1759 2147 Ondansetron HCl 4 MG Q4H PRN PRN 04/08 1800 AC IV 05/08 1759 Dose Instructions:(1)Sterile Water: DRESSING CHANGE Results: labs reviewed, vital signs stable Diagnosis, Assessment Plan Free Text DxA P NotesFree Text DxA P Notes:ASSESSMENT:* Normocytic, hypochromic anemia. This seems to be an anemia of chronic disease. With iron panel being normal it is less likely to be GI blood loss. Considering his leukopenia I suspect that he may be developing underlying primary bone marrow disease such as MDS.* Recurrent pulmonary embolism based on intermediate probability VQ scan.* History of coronary artery disease, status post 2 coronary artery bypass graftsurgery. PLAN:* Continues to have persistent normocytic, hypochromic anemia and leukopenia. Discussed with the patient that I am concerned that he may be developing any primary bone marrow disease such as MDS. Therefore have recommended a bone marrow aspiration and biopsy for further evaluation. He is agreeable to this plan.* Monitor CBC.* Patient may need to continue with anticoagulation considering benefits more than the risk.* Apparently his lower GI bleed is associated with constipation.* I will continue to follow. 8/9Counts continue to be low.Bone marrow aspiration biopsy ordered, pending.Continue to follow. 8/10Status post bone marrow aspiration and biopsy today.Counts remain low but stable.Await biopsy results.Continue with Eliquis for anticoagulation. Discussed with the patient that he needs to take that on a long-term basis. 8/11Counts remain low but stable.Okay for discharge from hematology.Should continue with Eliquis for anticoagulation on a long-term basis.We will plan for outpatient follow-up in 1 week. at 1727 RPT #:[id number] OF REPORTPRProgress gupc2191-50-10P04:26:00G.[id number] able for patient llqrMKOBRZJWMLOJRF2873-51-02Y36:28:30 [facility] 2023-04-18 14:43:00 [id number] 2ZgM87cF0pBJt7X4GnadcLT9GzD4738-80-24T68:43:00 [facility] CenterHospital[facility] Progress NoteREPORT#:[id number] REPORT STATUS: SignedDATE:04/18/23 TIME: 1443 PATIENT: TEVIN NYE UNIT #: [id number]#: [id number] [address] [birth year] AGE: 73 SEX: M ATTEND: Rojelio Magaña AUTHOR: Rojelio Magaña MD * ALL edits or amendments must be made on the electronic/computer document * SubjectiveChief complaint:No new complaints. ambulating Objective GeneralVS/I O:Vital Signs: Date Time Temp Pulse Resp B/P B/P Pulse O2 O2 Flow FiO2 Mean Ox Delivery Rate 04/18 1050 98.1 76 15 147/55 85.9 97 Room air 04/18 0944 99 Nasal 2 cannula 04/18 0800 2 04/18 0730 98.1 62 15 127/66 86.2 98 Room air 04/18 0401 97.7 85 16 116/63 80.6 97 04/18 0120 2 04/17 2246 97.5 78 14 109/52 70.7 98 04/17 2053 95 Nasal 2 28 cannula 04/17 1924 98.1 74 14 119/59 79.1 97 04/17 1631 49 04/17 1600 98.2 37 15 136/52 80.1 96 Nasal cannula 24 hour I O ending at 0700: 04/18 0700 04/17 1900 Intake Total Output Total 200 Balance -200 Number Voids 1 Output, Urine 200 PATIENT WEIGHT: Weight (lb): Weight (oz): Weight (kg): 86.200 Physical ExamGeneral appearance: alert, awake, orientedHead/Eyes: atraumatic, clear cornea, EOMINeck: supple/no meningismusCardiovascular: normal heart sounds, regular rate rhythm, no gallop, no murmur, no rubRespiratory: aerating well, clear to auscultation, symmetric expansionAbdomen: non-tender, normal bowel sounds, soft, no distentionExtremities: no clubbing, no cyanosis, no edemaMusculoskeletal: normal inspection, painless range of motionNeuro/SALES ASSISTANT: alert, oriented X 3, CNII-XII intactSkin: dry, intactUlcer: Type/cause: scab left foot. ResultsFindings/Data:Laboratory Tests 04/18 04/18 04/18 04/17 1051 0737 0731 1922 Chemistry Sodium (134 - 147 mEq/L) 139 Potassium (3.4 - 5.0 mEq/L) 4.6 Chloride (100 - 108 mEq/L) 107 Carbon Dioxide (21 - 33 mEq/l) 24 Anion Gap (0 - 20) 12 BUN (7 - 18 mg/dL) 19 H Creatinine (0.6 - 1.3 mg/dL) 1.3 Glomerular Filtr Rate (70 - 80) 58.4 L Glucose (70 - 110 mg/dL) 199 H POC Glucose (70 - 110 MG/DL) 247 H 196 H 203 H Calcium (8.0 - 10.5 mg/dL) 8.3 Laboratory Tests 04/18 0737 Hematology WBC (4.5 - 11.0 x10 3/uL) 3.7 L RBC (4.00 - 5.60 x10 6/uL) 2.62 L Hgb (12.5 - 16.9 g/dL) 7.7 L Hct (37.5 - 50.7 %) 25.0 L MCV (81.0 - 99.0 fL) 95.4 MCH (27.0 - 33.0 pg) 29.4 MCHC (33.0 - 37.0 g/dL) 30.8 L RDW (11.5 - 14.5 %) 18.1 H Plt Count (150 - 400 x10 3/uL) 139 L MPV (7.0 - 9.0 fL) 10.7 H Neut % (Auto) (56.0 - 77.0 %) 74.4 Lymph % (Auto) (14.0 - 32.0 %) 12.4 L [place] % (Auto) (4.8 - 9.0 %) 9.7 H Eos % (Auto) (0.3 - 3.7 %) 1.9 Baso % (Auto) (0.0 - 2.0 %) 0.8 Neut # (Auto) (2.0 - 7.6 x10 3/uL) 2.75 Lymph # (Auto) (1.0 - 3.8 x10 3/uL) 0.46 L [place] # (Auto) (0.1 - 0.8 x10 3/uL) 0.36 Eos # (Auto) (0.0 - 0.2 x10 3/uL) 0.07 Baso # (Auto) (0.0 - 0.2 x10 3/uL) 0.03 Abs Immat Gran (auto) (0.00 - 0.03 x10 3/uL) 0.03 Add Manual Diff NO Immature Gran % (0.0 - 2.0 %) 0.8 Nucleated RBC % (0 - 0 %) 0.0 Nucleated RBCs # (Man) (0.0 - 0.1 x10 3/uL) 0.00 Diagnosis, Assessment Plan Free Text DxA P NotesFree text DxA P notes:SOB (presumed PE) cardiology and pulmonary seenon 2.5 to 3 liters of oxygen per n/cecho wnlwill give lasix twenty mg one time dosecheck chest xray04/14- CXR on 04/13 was negative. pulmonary following. elevated D-dimer (presumed PE)V-Q scan with intermediate probabilityon therapeutic lovenox renally dosed for now04/14- pulmonary following...worsening anemia, but guiaiac negaive anemia (pancytopenia)04/14- hgb dropped to 8 today (9.7 two days ago). ask heme to see. h/o cancer. guiaiac negative. 04/15- hgb stable at 8. 04/16- hgb 7.3...bone marrow bx planned today?04/17 - hgb 7.5. s/p BM bx today. results pending. JERAMY with CKDrenal seenon IVFcreat improving COPDon home oxygen h/o CADs/p CABG X4 on 3CTS consulted and seen DMaccuchecks and SSI prncheck A1CBG controlled HTNbp controlledresumed home meds HLDon statinstable Prostate cancers/p XRT pulmonary nodule04/17 - need f/u in 3 months. Debilityper PT/OT could be a post acute rehab candidate consulted rehabrecommend IRF check labs in [facility]/up wiht DR. Rinaldi 04/14- awiaitng tranfer to rehab. folow h/h. ask heme to see.04/15- h/h stable. cleared by GI to change lovenox to Eliquis if pulmonary wishes. 04/16- hgb 7.3. Bone marrow bx planned.04/17 - s/p bm bx today. results pending. hgb 7.5. on full dose lovenox. change to Eliquis when ok with pulmonary. need outpt f/u for pulmonary nodule. Pt is contemplating going home if no approval for rehab. 04/18 - doing better, more likely too high level for rehab. Plan to d/c home tomorrow with HH if ok will all MD's. at 1445 RPT #:[id number] OF REPORTPRProgress kuvt6623-45-30M53:43:00G.[id number] able for patient rtnhHFSJMDIDJJTXYL9529-48-76H40:45:56 [facility] 2023-04-18 14:38:00 [id number]jEM 8ACv4Z/IamRJry8jq6ThECqDwr76339-89-12D29:38:00 [facility] ([facility])Cardiology Progress NoteREPORT#:[id number] REPORT STATUS: SignedDATE:04/18/23 TIME: 1438 PATIENT: TEVIN NYE UNIT #: [id number]#: [id number] [address] [birth year] AGE: 73 SEX: M ATTEND: Rojelio Magaña [facility] AUTHOR: Daniela Mari * ALL edits or amendments must be made on the electronic/computer document * SubjectivePatient reports:No: complaints. Review of SystemsRespiratory:Denies: SOB. Cardiovascular:Denies: chest pain, edema, orthopnea. Objective GeneralVS/I O:24 hour I O ending at 0700: 04/18 0700 04/17 1900 Intake Total Output Total 200 Balance -200 Number Voids 1 Output, Urine 200 Vital Signs: Date Time Temp Pulse Resp B/P B/P Pulse O2 O2 Flow FiO2 Mean Ox Delivery Rate 04/18 1050 36.7 76 15 147/55 85.9 97 Room air 04/18 0944 99 Nasal 2 cannula 04/18 0800 2 04/18 0730 36.7 62 15 127/66 86.2 98 Room air 04/18 0401 36.5 85 16 116/63 80.6 97 04/18 0120 2 04/17 2246 36.4 78 14 109/52 70.7 98 04/17 2053 95 Nasal 2 28 cannula 04/17 1924 36.7 74 14 119/59 79.1 97 04/17 1631 49 04/17 1600 36.8 37 15 136/52 80.1 96 Nasal cannula PATIENT WEIGHT: Weight (lb): Weight (oz): Weight (kg): 86.200 Medications:Active Meds + DC'd Last 24 HrsApixaban (ELIQUIS 5MG TABLET) 5 MG BID PO Enoxaparin Sodium (lovENOX) 70 MG 0800,1999 SUBQ (DC) Amiodarone HCl (CORDARONE) 200 MG DAILY PO Metoprolol Tartrate (LOPRESSOR) 25 MG Q8HR PO Atorvastatin Calcium (LIPITOR) 40 MG 2100 PO Lactulose (LACTULOSE) 20 GM BID PRN PRN PO Miscellaneous Information (LOVENOX PHARMACY TO DOSE) 1 EACH ASDIR SUBQ (DC) Sterile Water (WATER FOR IRRIGATION) DRESSING CHANGE ASDIR PRN IRR Aspirin (ASPIRIN) 81 MG DAILY PO Fluoxetine HCl (PROzac) 10 MG QAM PO Insulin Human Lispro (HUMALOG) 0 AC HS SUBQ Albuterol/Ipratropium (DUONEB) 3 ML RTQ4H NEB Tamsulosin HCl (Flomax 0.4 mg) 0.8 MG BEDTIME PO Acetaminophen (TYLENOL) 650 MG Q4H PRN PRN PO Ondansetron HCl (ZOFRAN) 4 MG Q4H PRN PRN IV Physical ExamGeneral appearance: alert, awake, orientedNeck: non-tender, no JVDCardiovascular: CV assessment: ectopy, regular rate and rhythmRespiratory: decreased breath sounds, no distressAbdomen: soft, non-tender, normal bowel sounds, no distentionGenitourinary: no flank pain, no urinary catheterLower extremity: LE assessment: abnormal pedal pulseMusculoskeletal: normal inspectionNeuro/SALES ASSISTANT: alert, oriented X 3, normal speechSkin: dry, intactUlcer: Type/cause: scab left foot.Psychiatry: normal affect, normal judgment/insight, normal mood ResultsFindings/Data:Laboratory Tests 04/18 04/18 04/18 04/17 1051 0737 0731 1922 Chemistry Sodium (134 - 147 mEq/L) 139 Potassium (3.4 - 5.0 mEq/L) 4.6 Chloride (100 - 108 mEq/L) 107 Carbon Dioxide (21 - 33 mEq/l) 24 Anion Gap (0 - 20) 12 BUN (7 - 18 mg/dL) 19 H Creatinine (0.6 - 1.3 mg/dL) 1.3 Glomerular Filtr Rate (70 - 80) 58.4 L Glucose (70 - 110 mg/dL) 199 H POC Glucose (70 - 110 MG/DL) 247 H 196 H 203 H Calcium (8.0 - 10.5 mg/dL) 8.3 Laboratory Tests 04/18 0737 Hematology WBC (4.5 - 11.0 x10 3/uL) 3.7 L RBC (4.00 - 5.60 x10 6/uL) 2.62 L Hgb (12.5 - 16.9 g/dL) 7.7 L Hct (37.5 - 50.7 %) 25.0 L MCV (81.0 - 99.0 fL) 95.4 MCH (27.0 - 33.0 pg) 29.4 MCHC (33.0 - 37.0 g/dL) 30.8 L RDW (11.5 - 14.5 %) 18.1 H Plt Count (150 - 400 x10 3/uL) 139 L MPV (7.0 - 9.0 fL) 10.7 H Neut % (Auto) (56.0 - 77.0 %) 74.4 Lymph % (Auto) (14.0 - 32.0 %) 12.4 L [place] % (Auto) (4.8 - 9.0 %) 9.7 H Eos % (Auto) (0.3 - 3.7 %) 1.9 Baso % (Auto) (0.0 - 2.0 %) 0.8 Neut # (Auto) (2.0 - 7.6 x10 3/uL) 2.75 Lymph # (Auto) (1.0 - 3.8 x10 3/uL) 0.46 L [place] # (Auto) (0.1 - 0.8 x10 3/uL) 0.36 Eos # (Auto) (0.0 - 0.2 x10 3/uL) 0.07 Baso # (Auto) (0.0 - 0.2 x10 3/uL) 0.03 Abs Immat Gran (auto) (0.00 - 0.03 x10 3/uL) 0.03 Add Manual Diff NO Immature Gran % (0.0 - 2.0 %) 0.8 Nucleated RBC % (0 - 0 %) 0.0 Nucleated RBCs # (Man) (0.0 - 0.1 x10 3/uL) 0.00 Results: labs reviewed, vital signs reviewedTelemetry Interpretation:Sinus rhythm with PVCs Diagnosis, Assessment PlanPlan discussed with: patient, collaborating MD, nurse Free Text DxA P NotesFree Text DxA P Notes:73 YO male with MHx of CAD s/p CABG less than 1 month ago, COPD, PE. He presentswith generalized weakness and near syncope. Per family the patient was progressively getting weak since being discharged from the hospital post CABG. Yesterday he was noticed to be really weak. The patient remarked he felt he was going to pass out. Other symptoms reported includes SOB, anorexia, LE edema, wound on the dorsum of the right foot. Creatinine elevated at 3, it was 1.6 when he was discharged few weeks ago. D-dimer elevated 1496. He has abnormal pedal pulses. 1. Dyspnea and presyncope likely d/t PE * Hx of PE, elevated D-dimer* Unable to CTA due to elevated creatinine* echocardiogram preserved LVEF* VQ suggestive of pulmonary embolism* On Eliquis 5 mg twice daily 2. CAD s/p CABG* stop Plavix, continue baby ASA plus AC of choice by pulmonology* continue BB and statin 3. JERAMY on CKD 2/2 volume depletion* creatinine trending down 3->2.9->2.4->1.9->1.3* resume lisinopril when ok with nephrology* nephrology following 4. Left foot ulcer/abnormal arterial doppler* looks like the left foot wound is healing. In the event the left foot woundfailed to heal then we will consider peripheral angiogram outpatient* podiatry following - wound benign per podiatry 5. Hx of COPD* pulmonary following 6. Acute Pulmonary embolism - recurrent* AC per pulmonology* LE venous doppler no DVT 7. PVCs* Multiple PVCs * continue amiodarone 200 mg daily and metoprolol * Replace low magnesium Overall doing well.Okay to discharge or transfer to rehab from cardiology standpointOutpatient follow-up with Dr. Rinaldi MDM by Dr. Haynes. at 1443 at 1429 RPT #:[id number] OF REPORTPRProgress ppql3506-66-75N91:38:00G.[id number] able for patient zolnMVIWLSMGDLKENP3384-98-61O80:43:56 [facility] 2023-04-18 14:19:00 [id number]:19:00 [facility] ([facility])Rehab Progress NoteREPORT#:[id number] REPORT STATUS: SignedDATE:04/18/23 TIME: 1419 PATIENT: TEVIN NYE UNIT #: [id number]#: [id number] [address] AGE: 73 SEX: M ATTEND: Rojelio Magaña [facility] AUTHOR: Nicolasa Galeano PA-C * ALL edits or amendments must be made on the electronic/computer document * SubjectiveChief complaint:S/P bone marrow Bx. He is up standing in his room IND brushing his teeth. Discussed DC home. He states he will think about it. Objective GeneralVS:Vital Signs: Date Time Temp Pulse Resp B/P B/P Pulse O2 O2 Flow FiO2 Mean Ox Delivery Rate 04/18 1050 98.1 76 15 147/55 85.9 97 Room air 04/18 0944 99 Nasal 2 cannula 04/18 0800 2 04/18 0730 98.1 62 15 127/66 86.2 98 Room air 04/18 0401 97.7 85 16 116/63 80.6 97 04/18 0120 2 04/176 97.5 78 14 109/52 70.7 98 08/10 2053 95 Nasal 2 28 cannula 04/17 1924 98.1 74 14 119/59 79.1 97 04/17 1631 49 04/17 1600 98.2 37 15 136/52 80.1 96 Nasal cannula PATIENT WEIGHT: Weight (lb): Weight (oz): Weight (kg): 86.200 Medications:Active Meds + DC'd Last 24 HrsApixaban (ELIQUIS 5MG TABLET) 5 MG BID PO Metoprolol Tartrate (LOPRESSOR) 50 MG BID PO Amiodarone HCl (CORDARONE) 200 MG DAILY PO Metoprolol Tartrate (LOPRESSOR) 25 MG Q8HR PO (DC) Atorvastatin Calcium (LIPITOR) 40 MG 2100 PO Lactulose (LACTULOSE) 20 GM BID PRN PRN PO Sterile Water (WATER FOR IRRIGATION) DRESSING CHANGE ASDIR PRN IRR Aspirin (ASPIRIN) 81 MG DAILY PO Fluoxetine HCl (PROzac) 10 MG QAM PO Insulin Human Lispro (HUMALOG) 0 AC HS SUBQ Albuterol/Ipratropium (DUONEB) 3 ML RTQ4H NEB Tamsulosin HCl (Flomax 0.4 mg) 0.8 MG BEDTIME PO Acetaminophen (TYLENOL) 650 MG Q4H PRN PRN PO Ondansetron HCl (ZOFRAN) 4 MG Q4H PRN PRN IV Functional ProgressFunctional progress:1. One on one supervision with cueing and assistance provided to ensure proper performance of all activities. Yes Precautions: Fall Pre- Gait Mobility Y/N: Yes Safety addressed through use of: Gait Belt Verbal Cues Tactile Cues Extra Personnel Gait Device RW WC TO FOLLOW Vital Signs/Oxygen: Yes Weightbearing: No Restriction Ambulation Distance: 150 FT , 200 FT w/c follow. Progression: Forward Assistance Level: Supervision or Set-up Gait Deviations: SHORT STEPS FLEXED FORWARD Antalgic Gait Left Document Pain/Education: No Advanced Progression: No Effects of Treatment: [place] of care decreased Circulation improved Gait quality improved Function Improved Post TX Precautions: FALL Review Plan of Care: Yes PT charges: Gait Training 52002 Gait Cmt: PATIENT WAS ABLE TO AMBULATE 150 FT WITH RW FOLLOWED BY WC WITH SUPERVISION, THEN 200 FT. PATIENT WAS ON 3 L O2 DURING AMBULATION , OXYGEN SAT WAS 97% THROUGHOUT THE SESSION. INFORMED CM FOR DME NEEDS: RW AND HOMEHEALTH CARE WHEN DC TO HOME. If this is the patient's last treatment, this entry serves as the discharge summary: Y Start Time: 1318 Stop Time: 1341 Treatment Time: (minutes) 0:23 Completed by: Sebastian Harrison Conference/Supervising PT: Yes Supervising Therapist: [email or web address] Sebastian Harrison Reviewed and Approved By: SEBASTIAN HARRISON, PT . BED MOBILITY: Yes Rolling Right/Left: Independent Supine to Sit: Modified Baker Sit to Supine: Modified Baker Scooting in bed: Independent TRANSFERS: Yes Bed to/from chair: Supervision or Set-up Sit to/from stand: Supervision or Set-up CARDIO-RESPIRATORY IMPAIRMENT Items determined to be OUTSIDE the Functional Limits are as follows: Patient on Telemetry?: Yes Patient receiving Oxygen?: Yes Liters/min: 3 L Oxygen Saturation (%): 97 Post Treatment: 97 . Physical ExamGeneral appearance: alert, awakePsych: alert, normal affectNeck: non-tender, suppleCardiovascular: regular rate rhythm, S1/M0Vjqulfqyjtz: diminished breath sounds, aerating wellAbdomen: bowel sounds present, soft, non-tenderUlcer: Type/cause: scab left foot.Musculoskeletal - general: Musculoskeletal - general: normal muscle massNeuro/SALES ASSISTANT: alert, oriented X 3, CNII-XII intact, normal speech, no sensory deficits ResultsFindings/Data:Laboratory Tests: 04/18 04/18 04/18 04/17 1051 0737 0731 1922 Chemistry Sodium (134 - 147 mEq/L) 139 Potassium (3.4 - 5.0 mEq/L) 4.6 Chloride (100 - 108 mEq/L) 107 Carbon Dioxide (21 - 33 mEq/l) 24 Anion Gap (0 - 20) 12 BUN (7 - 18 mg/dL) 19 H Creatinine (0.6 - 1.3 mg/dL) 1.3 Glomerular Filtr Rate (70 - 80) 58.4 L Glucose (70 - 110 mg/dL) 199 H POC Glucose (70 - 110 MG/DL) 247 H 196 H 203 H Calcium (8.0 - 10.5 mg/dL) 8.3 Hematology WBC (4.5 - 11.0 x10 3/uL) 3.7 L RBC (4.00 - 5.60 x10 6/uL) 2.62 L Hgb (12.5 - 16.9 g/dL) 7.7 L Hct (37.5 - 50.7 %) 25.0 L MCV (81.0 - 99.0 fL) 95.4 MCH (27.0 - 33.0 pg) 29.4 MCHC (33.0 - 37.0 g/dL) 30.8 L RDW (11.5 - 14.5 %) 18.1 H Plt Count (150 - 400 x10 3/uL) 139 L MPV (7.0 - 9.0 fL) 10.7 H Neut % (Auto) (56.0 - 77.0 %) 74.4 Lymph % (Auto) (14.0 - 32.0 %) 12.4 L [place] % (Auto) (4.8 - 9.0 %) 9.7 H Eos % (Auto) (0.3 - 3.7 %) 1.9 Baso % (Auto) (0.0 - 2.0 %) 0.8 Neut # (Auto) (2.0 - 7.6 x10 3/uL) 2.75 Lymph # (Auto) (1.0 - 3.8 x10 3/uL) 0.46 L [place] # (Auto) (0.1 - 0.8 x10 3/uL) 0.36 Eos # (Auto) (0.0 - 0.2 x10 3/uL) 0.07 Baso # (Auto) (0.0 - 0.2 x10 3/uL) 0.03 Abs Immat Gran (auto) (0.00 - 0.03 x10 3/uL) 0.03 Add Manual Diff NO Immature Gran % (0.0 - 2.0 %) 0.8 Nucleated RBC % (0 - 0 %) 0.0 Nucleated RBCs # (Man) (0.0 - 0.1 x10 3/uL) 0.00 Diagnosis, Assessment PlanFree Text A P:73 year old male with acute on chronic respiratory failure, elevated D-dimer, JERAMY on CKD, recent CABG and weakness. Continue with PT/OT. Recommend IRF placement for his ongoing medical and rehabilitation needs. He is willing to stay here at [facility]. 04/14: Continue with therapy as tolerated. Pending IRF transfer. Encouraged increased time EOB/OOB to build endurance, balance and strength.8/8: Gi cleared to start on anticoagulation given PE gareth. Cr stable and trending down. Hematology consulted due to leukopenia along with anemia. Pt noted with elevated retic count. ? may need bone marrow bx. PT/OT continued. OOBdaily. 04/16: Planning for bone marrow bx. PT/OT. States improving gait. Hgb dropping. Today 7.3. Monitor when OOB. 04/17: Continue OOB daily and working with therapy. Hgb dropped. Bone marrow Bx today. Remains pancytopenic. 04/18: Making great progress. He is doing well up and moving. Discussed with himabout DC home. Discussed with IM. OK to DC home with HH. Rehab attestation:Face to face exam completed. Treatment plan discussed with patient. at 1303 RPT #:[id number] OF REPORTPRProgress mgjt2281-04-91P64:19:00G.[id number] able for patient tqwgTNXSVXCGVWTQVO0243-07-57P69:03:34 [facility] 2023-04-18 12:52:00 [id number] fHEtOVNHWgR2cNnOu7nWEIniFjEAc kfS7+yPEKDIn34+xh58jTXHY1Dz4913-81-84R82:52:00 [facility] ([facility])Pulmonology Progress NoteREPORT#:[id number] REPORT STATUS: SignedDATE:04/18/23 TIME: 1252 PATIENT: TEVIN NYE UNIT #: [id number]#: [id number] [address] AGE: 73 SEX: M ATTEND: Rojelio Magaña MDADM AUTHOR: Sharmila Alan * ALL edits or amendments must be made on the electronic/computer document * SubjectiveComments:On NC, no new complaints ROSAll systems rev neg: except as marked Objective GeneralVS/I O:Last Documented: Result Date Time Pulse Ox 97 04/18 1050 B/P 147/55 04/18 1050 B/P Mean 85.9 04/18 1050 O2 Delivery Room air 04/18 1050 Temp 36.7 04/18 1050 Pulse 76 04/18 1050 Resp 15 04/18 1050 O2 Flow Rate 2 04/18 0944 FiO2 28 04/17 2053 24 hour I O ending at 0700: 04/18 0700 04/17 1900 Intake Total Output Total 200 Balance -200 Number Voids 1 Output, Urine 200 PATIENT WEIGHT: Weight (lb): Weight (oz): Weight (kg): 86.200 Medications:Active Meds + DC'd Last 24 HrsApixaban (ELIQUIS 5MG TABLET) 5 MG BID PO (UNV) Enoxaparin Sodium (lovENOX) 70 MG 0800,1999 SUBQ (DCr) Amiodarone HCl (CORDARONE) 200 MG DAILY PO Metoprolol Tartrate (LOPRESSOR) 25 MG Q8HR PO Atorvastatin Calcium (LIPITOR) 40 MG 2100 PO Lactulose (LACTULOSE) 20 GM BID PRN PRN PO Miscellaneous Information ([facility] TO [facility]SE) 1 EACH ASDIR SUBQ (DCr) Sterile Water (WATER FOR IRRIGATION) DRESSING CHANGE ASDIR PRN IRR Aspirin (ASPIRIN) 81 MG DAILY PO Fluoxetine HCl (PROzac) 10 MG QAM PO Insulin Human Lispro (HUMALOG) 0 AC HS SUBQ Albuterol/Ipratropium (DUONEB) 3 ML RTQ4H NEB Tamsulosin HCl (Flomax 0.4 mg) 0.8 MG BEDTIME PO Acetaminophen (TYLENOL) 650 MG Q4H PRN PRN PO Ondansetron HCl (ZOFRAN) 4 MG Q4H PRN PRN IV Physical ExamGeneral appearance: alert, awake, oriented, no acute distressHead/eyes: atraumatic, normocephalic, PERRL, EOMINeck: no JVD, no lymphadenopathyCardiovascular: normal heart sounds, normal S1/S2, regular rate rhythmRespiratory/chest: decreased breath sounds, on oxygen, aerating well, symmetric expansionAbdomen: soft, no guardingExtremities: moves all, no clubbing, no cyanosis, no edemaNeuro/SALES ASSISTANT: CNII-XII intactSkin: dry, intactUlcer: Type/cause: scab left foot.Psychiatry: normal affect, normal judgment/insight, normal mood ResultsFindings/Data:Laboratory Tests 04/18/23 0737:[Embedded Image Not Available]Laboratory Tests 04/18 04/18 04/18 04/17 1051 0737 0731 1922 Chemistry Sodium (134 - 147 mEq/L) 139 Potassium (3.4 - 5.0 mEq/L) 4.6 Chloride (100 - 108 mEq/L) 107 Carbon Dioxide (21 - 33 mEq/l) 24 Anion Gap (0 - 20) 12 BUN (7 - 18 mg/dL) 19 H Creatinine (0.6 - 1.3 mg/dL) 1.3 Glomerular Filtr Rate (70 - 80) 58.4 L Glucose (70 - 110 mg/dL) 199 H POC Glucose (70 - 110 MG/DL) 247 H 196 H 203 H Calcium (8.0 - 10.5 mg/dL) 8.3 Laboratory Tests 04/18 0737 Hematology WBC (4.5 - 11.0 x10 3/uL) 3.7 L RBC (4.00 - 5.60 x10 6/uL) 2.62 L Hgb (12.5 - 16.9 g/dL) 7.7 L Hct (37.5 - 50.7 %) 25.0 L MCV (81.0 - 99.0 fL) 95.4 MCH (27.0 - 33.0 pg) 29.4 MCHC (33.0 - 37.0 g/dL) 30.8 L RDW (11.5 - 14.5 %) 18.1 H Plt Count (150 - 400 x10 3/uL) 139 L MPV (7.0 - 9.0 fL) 10.7 H Neut % (Auto) (56.0 - 77.0 %) 74.4 Lymph % (Auto) (14.0 - 32.0 %) 12.4 L [place] % (Auto) (4.8 - 9.0 %) 9.7 H Eos % (Auto) (0.3 - 3.7 %) 1.9 Baso % (Auto) (0.0 - 2.0 %) 0.8 Neut # (Auto) (2.0 - 7.6 x10 3/uL) 2.75 Lymph # (Auto) (1.0 - 3.8 x10 3/uL) 0.46 L [place] # (Auto) (0.1 - 0.8 x10 3/uL) 0.36 Eos # (Auto) (0.0 - 0.2 x10 3/uL) 0.07 Baso # (Auto) (0.0 - 0.2 x10 3/uL) 0.03 Abs Immat Gran (auto) (0.00 - 0.03 x10 3/uL) 0.03 Add Manual Diff NO Immature Gran % (0.0 - 2.0 %) 0.8 Nucleated RBC % (0 - 0 %) 0.0 Nucleated RBCs # (Man) (0.0 - 0.1 x10 3/uL) 0.00 Diagnosis, Assessment PlanFree Text A P:Acute on chronic hypoxemic respiratory failure supplemental O2 as needed and wean as tolerated Pulmonary embolism Initially diagnosed in November 2022 at outside hospital; was on Eliquis from diagnosis through February. CTA chest 03/03/2023 was negative for pulmonary embolism. Patient was discharged home 03/13/2023 and told to discontinue taking Eliquis.-D-dimer 1496. -VQ scan with intermediate probability. 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 Check bilateral lower extremity Dopplers -> neg-Renally dose lovenox @ 1mg/kg once daily -d/w cardio. will ultimately AC with eliquis ASA. Off plavix. COPD No exacerbation. On Combivent and ipratropium nebs at home.-May need repeat pulmonary function test outpatient. [facility] registration [facility] due [facility] issues with [facility] RLL nodule CT chest 03/03/2023. 1.5 x 0.8 cm nodular opacity in RLL needs follow-up in 3 months CAD / PAD S/p CABG 03/04/2023 Cardiothoracic surgery following Echo noted JERAMY/CKD Nephrology consult Strict I O. 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 S/P BMB per Heme PT/OTRehab eval- Heme recs noted. Switch to Eliquis at 1254 RPT #:[id number] OF REPORTPRProgress vssb5610-90-47L90:52:00G.[id number] able for patient znhbJQBEYQUSFLABPJ6892-89-70C61:54:16 [facility] 2023-04-18 12:23:00 [id number] afsaneh+fcMaqrRnAQmW3YRzc6AmexDvF tlrw4/1UgNC7sJw6FHkVKt8AFiN5864-92-76E38:23:00 [facility] ([facility])Gastroenterology Progress NoteREPORT#:[id number] REPORT STATUS: SignedDATE:04/18/23 TIME: 1223 PATIENT: TEVIN NYE UNIT #: [id number]#: [id number] [address] [birth year] AGE: 73 SEX: M ATTEND: Rojelio Magaña MDADM AUTHOR: Clint Roman * ALL edits or amendments must be made on the electronic/computer document * Clint Roman 04/18/23 1223:SubjectiveComments:tolerating po. no nausea, vomiting, or abdominal pain. denies rectal bleeding Review of SystemsAdditional notes:10 point ros neg except hpi Objective GeneralVS/I O:Last Documented: Result Date Time Pulse Ox 97 04/18 1050 B/P 147/55 04/18 1050 B/P Mean 85.9 04/18 1050 O2 Delivery Room air 04/18 1050 Temp 98.1 04/18 1050 Pulse 76 04/18 1050 Resp 15 04/18 1050 O2 Flow Rate 2 04/18 0944 FiO2 28 04/17 2053 24 hour I O ending at 0700: 04/18 0700 04/17 1900 Intake Total Output Total 200 Balance -200 Number Voids 1 Output, Urine 200 PATIENT WEIGHT: Weight (lb): Weight (oz): Weight (kg): 86.200 Medications:Active Meds + DC'd Last 24 HrsEnoxaparin Sodium (lovENOX) 70 MG 0800,2000 SUBQ Amiodarone HCl (CORDARONE) 200 MG DAILY PO Metoprolol Tartrate (LOPRESSOR) 25 MG Q8HR PO Atorvastatin Calcium (LIPITOR) 40 MG 2100 PO Lactulose (LACTULOSE) 20 GM BID PRN PRN PO Miscellaneous Information ([facility] TO DOSE) 1 EACH ASDIR SUBQ (CKD) Sterile Water (WATER FOR IRRIGATION) DRESSING CHANGE ASDIR PRN IRR Aspirin (ASPIRIN) 81 MG DAILY PO Fluoxetine HCl (PROzac) 10 MG QAM PO Insulin Human Lispro (HUMALOG) 0 AC HS SUBQ Albuterol/Ipratropium (DUONEB) 3 ML RTQ4H NEB Tamsulosin HCl (Flomax 0.4 mg) 0.8 MG BEDTIME PO Acetaminophen (TYLENOL) 650 MG Q4H PRN PRN PO Ondansetron HCl (ZOFRAN) 4 MG Q4H PRN PRN IV Physical ExamGeneral appearance: alert, awakeHEENT: atraumatic, normocephalicNeck: decreased range of motionCardiovascular: normal capillary refill, regular rate rhythmRespiratory: no distress, on oxygenAbdomen: non-tender, soft, no distentionExtremities: decreased range of motionNeuro/SALES ASSISTANT: alert, oriented X 3Skin: dry, intactUlcer: Type/cause: scab left foot.Psychiatry: normal affect, normal judgment/insight ResultsFindings/Data:Laboratory Tests 04/18/23 0737:[Embedded Image Not Available]Laboratory Tests 04/18 04/18 04/18 04/17 1051 0737 0731 1922 Chemistry Sodium (134 - 147 mEq/L) 139 Potassium (3.4 - 5.0 mEq/L) 4.6 Chloride (100 - 108 mEq/L) 107 Carbon Dioxide (21 - 33 mEq/l) 24 Anion Gap (0 - 20) 12 BUN (7 - 18 mg/dL) 19 H Creatinine (0.6 - 1.3 mg/dL) 1.3 Glomerular Filtr Rate (70 - 80) 58.4 L Glucose (70 - 110 mg/dL) 199 H POC Glucose (70 - 110 MG/DL) 247 H 196 H 203 H Calcium (8.0 - 10.5 mg/dL) 8.3 Laboratory Tests 04/18 0737 Hematology WBC (4.5 - 11.0 x10 3/uL) 3.7 L RBC (4.00 - 5.60 x10 6/uL) 2.62 L Hgb (12.5 - 16.9 g/dL) 7.7 L Hct (37.5 - 50.7 %) 25.0 L MCV (81.0 - 99.0 fL) 95.4 MCH (27.0 - 33.0 pg) 29.4 MCHC (33.0 - 37.0 g/dL) 30.8 L RDW (11.5 - 14.5 %) 18.1 H Plt Count (150 - 400 x10 3/uL) 139 L MPV (7.0 - 9.0 fL) 10.7 H Neut % (Auto) (56.0 - 77.0 %) 74.4 Lymph % (Auto) (14.0 - 32.0 %) 12.4 L [place] % (Auto) (4.8 - 9.0 %) 9.7 H Eos % (Auto) (0.3 - 3.7 %) 1.9 Baso % (Auto) (0.0 - 2.0 %) 0.8 Neut # (Auto) (2.0 - 7.6 x10 3/uL) 2.75 Lymph # (Auto) (1.0 - 3.8 x10 3/uL) 0.46 L [place] # (Auto) (0.1 - 0.8 x10 3/uL) 0.36 Eos # (Auto) (0.0 - 0.2 x10 3/uL) 0.07 Baso # (Auto) (0.0 - 0.2 x10 3/uL) 0.03 Abs Immat Gran (auto) (0.00 - 0.03 x10 3/uL) 0.03 Add Manual Diff NO Immature Gran % (0.0 - 2.0 %) 0.8 Nucleated RBC % (0 - 0 %) 0.0 Nucleated RBCs # (Man) (0.0 - 0.1 x10 3/uL) 0.00 Diagnosis, Assessment PlanFree Text A P:Assessment dyspnea on exertionPE, on lovenoxhx of prostate cancer, s/p radiation therapy pancytopeniarectal bleeding, mild, resolved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 Plan: - monitor h/h, transfuse as needed- monitor for further bleeding - diet as tolerated - bone marrow biopsy results pending- switched to eliquis for PE Roberto Galeano 04/18/23 1549:Attestations Physician AttestationAgree w/findings plan:Agree with the findings and plan as documented by Abel PRITCHARD; at 1415 at 1549 RPT #:[id number] OF REPORTPRProgress [id number]:23:00G.[id number] able for patient avaaVWRZDEAJSLMXMB6496-99-78C38:16:01 [facility] 2023-04-18 08:08:00 [id number] gA2/gfu46b9ogceFmrHXBvSiIWddu g3P86zQ7uagLTS6SCDReMWVKQy43938-03-37P16:08:00 [facility] ([facility])Nephrology Progress NoteREPORT#:[id number] REPORT STATUS: SignedDATE:04/18/23 TIME: 08 PATIENT: TEVIN NYE UNIT #: [id number]#: [id number] [address] [birth year] AGE: 73 SEX: M ATTEND: Rojelio Magaña MDADM AUTHOR: Glendy Paz MD * ALL edits or amendments must be made on the electronic/computer document * SubjectiveChief complaint:Follow-up of acute renal failure, ATN/AINComments:Doing well, no complaint. Objective GeneralVS/I O:Vital Signs: Date Time Temp Pulse Resp B/P B/P Pulse O2 O2 Flow FiO2 Mean Ox Delivery Rate 04/18 730 98.1 62 15 127/66 86.2 98 Room air 04/18 0401 97.7 85 16 116/63 80.6 97 04/18 0120 2 04/17 2246 97.5 78 14 109/52 70.7 98 04/17 2053 95 Nasal 2 28 cannula 08/10 1924 98.1 74 14 119/59 79.1 97 / 1631 49 /10 1600 98.2 37 15 136/52 80.1 96 Nasal cannula 04/17 1328 131/67 70 Nasal 2 cannula 04/17 1146 98.1 57 15 123/66 84.8 98 Nasal cannula 04/17 1050 56 18 115/52 99 Nasal 2 cannula 04/17 1045 60 14 102/49 98 Nasal 3 cannula 04/17 1040 59 15 109/45 98 Nasal 3 cannula 04/17 1035 57 13 90/54 100 Nasal 3 cannula 04/17 1030 58 14 66/41 100 Nasal 3 cannula 04/17 1029 Nasal 2 cannula 04/17 1025 67 20 134/53 100 Nasal 2 cannula 24 hour I O ending at 0700: 04/18 0700 04/17 1900 Intake Total Output Total 200 Balance -200 Number Voids 1 Output, Urine 200 PATIENT WEIGHT: Weight (lb): Weight (oz): Weight (kg): 86.200 MedicationsActive Meds + DC'd Last 24 HrsFentanyl Citrate (SUBLIMAZE) 0 .STK-MED ONE IV (DC) Heparin Sodium (HEPARIN 5000 UNITS/ML) 0 .STK-MED ONE MISC (DC) Lidocaine HCl (XYLOCAINE) 0 .STK-MED ONE LOCAL (DC) Midazolam HCl (VERSED) 0 .STK-MED ONE IV (DC) Enoxaparin Sodium (lovENOX) 70 MG 0800,1999 SUBQ Amiodarone HCl (CORDARONE) 200 MG DAILY PO Metoprolol Tartrate (LOPRESSOR) 25 MG Q8HR PO Atorvastatin Calcium (LIPITOR) 40 MG 2100 PO Lactulose (LACTULOSE) 20 GM BID PRN PRN PO Miscellaneous Information ([facility] TO DOSE) 1 EACH ASDIR SUBQ (CKD) Sterile Water (WATER FOR IRRIGATION) DRESSING CHANGE ASDIR PRN IRR Aspirin (ASPIRIN) 81 MG DAILY PO Fluoxetine HCl (PROzac) 10 MG QAM PO Insulin Human Lispro (HUMALOG) 0 AC HS SUBQ Albuterol/Ipratropium (DUONEB) 3 ML RTQ4H NEB Tamsulosin HCl (Flomax 0.4 mg) 0.8 MG BEDTIME PO Acetaminophen (TYLENOL) 650 MG Q4H PRN PRN PO Ondansetron HCl (ZOFRAN) 4 MG Q4H PRN PRN IV Physical ExamGeneral appearance: alert, awake, orientedHead/eyes: atraumatic, normocephalicENT: moist mucous membranesNeck: supple/no meningismus, no JVDCardiovascular: normal heart sounds, no rubRespiratory: aerating well, clear to auscultation, no distressGenitourinary: no bladder distentionExtremities: no edemaUlcer: Type/cause: scab left foot. ResultsFindings/Data:Laboratory Tests 04/17 04/17 04/17 1922 1150 1149 Chemistry POC Glucose (70 - 110 MG/DL) 203 H 175 H 177 H Radiology data:Recent Impressions:CAT SCAN - CT GUID NDL [facility] (Biopsy/Asp) 04/17 1035 Report Impression - Status: SIGNED Entered: 04/17/2023 1128 IMPRESSION: CT-guided bone marrow aspiration and core biopsy.Impression By: [id number] Og Croft M.D. Diagnosis, Assessment PlanFree Text A P:Assessment/plan:1. Acute renal failure most likely secondary to volume depletion, overdiuresis and ATN/AIN with Bactrim and lisinopril on board. JERAMY resolved. Creatinine at baseline, 2.9-2.4-1.9 > 1.2 >1.3>1.4 today. 2. CKD stage IIIa Cr 1.4, stable today 2. Coronary artery disease: Status post CABG, continue home medications 3. COPD: Symptomatic treatment 4. History of prostate cancer, s/p radiation 2021 5. Anemia: Requested stool occult blood-not sent yet, and iron studies reviewed-ok, transfuse as needed for hemoglobin less than 7. Hematology following, sp bone marrow biopsy pending rehab. stable from nephrology for discharge. at 1039 RPT #:[id number] OF REPORTPRProgress mgdy5649-52-59K66:08:00G.[id number] able for patient hjpyUCCJQNMGJVDTLG3784-05-33S03:40:17 [facility] 2023-04-17 23:01:00 [id number] jcCuIGaqisKEVQIISTBRSLj3KPBsB fpPqxbKo9LoQ8IWACezW9JY/he74346-64-70U11:01:00 [facility] ([facility]/Oncology Progress NoteREPORT#:[id number] REPORT STATUS: SignedDATE:04/17/23 TIME: 230 PATIENT: TEVIN NYE UNIT #: [id number]#: [id number] [address] [birth year] AGE: 73 SEX: M ATTEND: Pablo Kumar [facility] AUTHOR: Dakota Arvizu MD * ALL edits or amendments must be made on the electronic/computer document * SubjectiveChief Complaint:Status post bone marrow aspiration and biopsy today. Objective Physical ExamVS:Vital Signs Date Temp Pulse Resp B/P B/P Mean Pulse Ox FiO2 04/16-04/17 36.4-36.8 37-78 13-20 66-136/41-67 70.7-84.8 70-100 28 Last Documented: Result Date Time Pulse Ox 98 04/17 2246 B/P 109/52 04/17 2246 B/P Mean 70.7 04/17 2246 Temp 36.4 04/17 2246 Pulse 78 04/17 2246 Resp 14 04/17 2246 FiO2 28 04/17 2053 O2 Delivery Nasal cannula 04/17 2053 O2 Flow Rate 2 04/17 2053 General appearance: alert, awakeHEENT: atraumatic, normocephalicNeck: full range of motion, non-tender, supple/no meningismus, no JVD, no lymphadenopathyCardiovascular: regular rate and rhythmRespiratory: clear to auscultationAbdomen: non-tender, normal bowel sounds, soft, no distention, no guarding, no mass/organomegaly, no reboundExtremities: moves all, normal capillary refill, no edemaMusculoskeletal: full range of motion, normal inspectionNeuro/SALES ASSISTANT: alert, oriented X 3Ulcer: Type/cause: scab left foot. ResultsFindings/Data:Laboratory Tests 04/17/23 0722:[Embedded Image Not Available]Laboratory Tests 04/17 1150 1149 0722 0713 Chemistry Sodium (134 - 147 mEq/L) 137 Potassium (3.4 - 5.0 mEq/L) 4.4 Chloride (100 - 108 mEq/L) 110 H Carbon Dioxide (21 - 33 mEq/l) 27 Anion Gap (0 - 20) 4 BUN (7 - 18 mg/dL) 22 H Creatinine (0.6 - 1.3 mg/dL) 1.4 H Glomerular Filtr Rate (70 - 80) 53.4 L Glucose (70 - 110 mg/dL) 192 H POC Glucose (70 - 110 MG/DL) 203 H 175 H 177 H 180 H Calcium (8.0 - 10.5 mg/dL) 8.0 Laboratory Tests 04/17 0722 Hematology WBC (4.5 - 11.0 x10 3/uL) 3.1 L RBC (4.00 - 5.60 x10 6/uL) 2.58 L Hgb (12.5 - 16.9 g/dL) 7.5 L Hct (37.5 - 50.7 %) 24.3 L MCV (81.0 - 99.0 fL) 94.2 MCH (27.0 - 33.0 pg) 29.1 MCHC (33.0 - 37.0 g/dL) 30.9 L RDW (11.5 - 14.5 %) 17.8 H Plt Count (150 - 400 x10 3/uL) 137 L MPV (7.0 - 9.0 fL) 11.0 H Neut % (Auto) (56.0 - 77.0 %) 73.8 Lymph % (Auto) (14.0 - 32.0 %) 12.8 L [place] % (Auto) (4.8 - 9.0 %) 9.8 H Eos % (Auto) (0.3 - 3.7 %) 1.6 Baso % (Auto) (0.0 - 2.0 %) 1.0 Neut # (Auto) (2.0 - 7.6 x10 3/uL) 2.25 Lymph # (Auto) (1.0 - 3.8 x10 3/uL) 0.39 L [place] # (Auto) (0.1 - 0.8 x10 3/uL) 0.30 Eos # (Auto) (0.0 - 0.2 x10 3/uL) 0.05 Baso # (Auto) (0.0 - 0.2 x10 3/uL) 0.03 Abs Immat Gran (auto) (0.00 - 0.03 x10 3/uL) 0.03 Add Manual Diff NO Immature Gran % (0.0 - 2.0 %) 1.0 Nucleated RBC % (0 - 0 %) 0.0 Nucleated RBCs # (Man) (0.0 - 0.1 x10 3/uL) 0.00 Radiology data:Current Medications Sig/Yas Start time Last Medication Dose Route Stop Time Status Admin Fentanyl Citrate 0 .STK-MED ONE 04/17 941 DC 04/17 IV 1025 Heparin Sodium 0 .STK-MED ONE 04/17 941 DC 04/17 MISC 1026 Lidocaine HCl 0 .STK-MED ONE 04/17 941 DC 04/17 LOCAL 1026 Midazolam HCl 0 .STK-MED ONE 04/17 941 DC 04/17 IV 1025 Enoxaparin Sodium 70 MG 08,04/15 AC 04/16 SUBQ 05/15 1959 2140 Amiodarone HCl 200 MG DAILY 04/14 09 AC 04/16 PO 05/14 0859 0902 Metoprolol Tartrate 25 MG Q8HR 04/10 1400 AC 04/17 PO 05/08 2259 0507 Atorvastatin Calcium 40 MG 2100 04/09 2100 AC 04/17 PO 05/09 2059 2212 Lactulose 20 GM BID PRN PRN 04/09 1900 AC 04/09 PO 05/09 1859 1933 Miscellaneous 1 EACH ASDIR 04/09 1530 CKD Information SUBQ 05/16 1529 Sterile Water See Dose ASDIR PRN 04/09 1230 AC Insts (1) IRR 05/09 1229 Aspirin 81 MG DAILY 04/09 1015 AC 04/17 PO 05/09 1014 1119 Fluoxetine HCl 10 MG QAM 04/09 0900 AC 04/17 PO 05/09 0859 1120 Insulin Human Lispro 0 AC HS 04/09 0730 AC 04/17 SUBQ 05/09 0729 1734 Albuterol/Ipratropium 3 ML RTQ4H 04/09 0000 AC 04/17 NEB 05/09 0000 2052 Tamsulosin HCl 0.8 MG BEDTIME 04/08 2300 AC 04/17 PO 05/08 2259 221 Acetaminophen 650 MG Q4H PRN PRN 04/08 1800 AC 04/13 PO 05/08 175 2147 Ondansetron HCl 4 MG Q4H PRN PRN 04/08 1800 AC IV 05/08 175 Dose Instructions:(1)Sterile Water: DRESSING CHANGE Recent Impressions:CAT SCAN - CT GUID NDL PLCMT (Biopsy/Asp) 04/17 1035 Report Impression - Status: SIGNED Entered: 04/17/2023 1128 IMPRESSION: CT-guided bone marrow aspiration and core biopsy.Impression By: BuckPKCharles Croft M.D. Results: labs reviewed, vital signs stable Diagnosis, Assessment Plan Free Text DxA P NotesFree Text DxA P Notes:ASSESSMENT:* Normocytic, hypochromic anemia. This seems to be an anemia of chronic disease. With iron panel being normal it is less likely to be GI blood loss. Considering his leukopenia I suspect that he may be developing underlying primary bone marrow disease such as MDS.* Recurrent pulmonary embolism based on intermediate probability VQ scan.* History of coronary artery disease, status post 2 coronary artery bypass graftsurgery. PLAN:* Continues to have persistent normocytic, hypochromic anemia and leukopenia. Discussed with the patient that I am concerned that he may be developing any primary bone marrow disease such as MDS. Therefore have recommended a bone marrow aspiration and biopsy for further evaluation. He is agreeable to this plan.* Monitor CBC.* Patient may need to continue with anticoagulation considering benefits more than the risk.* Apparently his lower GI bleed is associated with constipation.* I will continue to follow. 89Counts continue to be low.Bone marrow aspiration biopsy ordered, pending.Continue to follow. 10Status post bone marrow aspiration and biopsy today.Counts remain low but stable.Await biopsy results.Continue with Eliquis for anticoagulation. Discussed with the patient that he needs to take that on a long-term basis. at 2305 RPT #:[id number] OF REPORTPRProgress [id number]:01:00G.[id number] able for patient fpryZGXQATPCZSAXPP3578-67-46B37:05:19 [facility] 2023-04-17 22:52:00 [id number] QdKka6efPi4UQRg8TVRjHyUOBRw3998-72-67C62:52:00 [facility])Podiatry Progress NoteREPORT#:[id number] REPORT STATUS: SignedDATE:04/17/23 TIME: 2251 PATIENT: TEVIN NYE UNIT #: [id number]#: [id number] [address] [birth year] AGE: 73 SEX: M ATTEND: Pablo Kumar [facility] AUTHOR: Andres Rachel DPM * ALL edits or amendments must be made on the electronic/computer document * SubjectiveChief complaint:left foot ulcerPatient reports: no dizziness, no fatigue, no headache, no itchingComments:pt very pleasant. doesnt have prevalon boots.is interested. dressing had fallen off of the foot. pt has pain. only takes tylenol. on exam: ulcer dorsal left forefoot with scabbing.dry peeling necrosis Objective GeneralVS:Last Documented: Result Date Time Pulse Ox 98 04/17 2246 B/P 109/52 04/17 2246 B/P Mean 70.7 04/17 2246 Temp 36.4 04/17 2246 Pulse 78 04/17 2246 Resp 14 04/17 2246 FiO2 28 04/17 2053 O2 Delivery Nasal cannula 04/17 2053 O2 Flow Rate 2 04/17 2053 PATIENT WEIGHT: Weight (lb): Weight (oz): Weight (kg): 86.200 Medications:Active Meds + DC'd Last 24 HrsFentanyl Citrate (SUBLIMAZE) 0 .STK-MED ONE IV (DC) Heparin Sodium (HEPARIN 5000 UNITS/ML) 0 .STK-MED ONE MISC (DC) Lidocaine HCl (XYLOCAINE) 0 .STK-MED ONE LOCAL (DC) Midazolam HCl (VERSED) 0 .STK-MED ONE IV (DC) Enoxaparin Sodium (lovENOX) 70 MG 0800,1999 SUBQ Amiodarone HCl (CORDARONE) 200 MG DAILY PO Metoprolol Tartrate (LOPRESSOR) 25 MG Q8HR PO Atorvastatin Calcium (LIPITOR) 40 MG 2100 PO Lactulose (LACTULOSE) 20 GM BID PRN PRN PO Miscellaneous Information (LOVENOX PHARMACY TO DOSE) 1 EACH ASDIR SUBQ (CKD) Sterile Water (WATER FOR IRRIGATION) DRESSING CHANGE ASDIR PRN IRR Aspirin (ASPIRIN) 81 MG DAILY PO Fluoxetine HCl (PROzac) 10 MG QAM PO Insulin Human Lispro (HUMALOG) 0 AC HS SUBQ Albuterol/Ipratropium (DUONEB) 3 ML RTQ4H NEB Tamsulosin HCl (Flomax 0.4 mg) 0.8 MG BEDTIME PO Acetaminophen (TYLENOL) 650 MG Q4H PRN PRN PO Ondansetron HCl (ZOFRAN) 4 MG Q4H PRN PRN IV I O:24 hour I O ending at 0700: 04/17 0700 04/16 1900 Intake Total Output Total 400 Balance -400 Output, Urine 400 Physical ExamGeneral appearance: alert, awake, orientedWound/incision: Location:bilat foot Site condition: small pinpoint ulcer right foot. ulcer left forefoot dorsal. partial and full thickness. no erythema. no depth.LE vascular pulse assess:Nonpalpable R posterior tibialis, Nonpalpable L posterior tibialis, Nonpalpable R dorsalis pedis, Nonpalpable L dorsalis pedis ResultsFindings/Data:Laboratory Tests: 04/17 04/17 04/17 04/17 1922 1150 1149 0722Chemistry Sodium (134 - 147 mEq/L) 137 Potassium (3.4 - 5.0 mEq/L) 4.4 Chloride (100 - 108 mEq/L) 110 H Carbon Dioxide (21 - 33 mEq/l) 27 Anion Gap (0 - 20) 4 BUN (7 - 18 mg/dL) 22 H Creatinine (0.6 - 1.3 mg/dL) 1.4 H Glomerular Filtr Rate (70 - 80) 53.4 L Glucose (70 - 110 mg/dL) 192 H POC Glucose (70 - 110 MG/DL) 203 H 175 H 177 H Calcium (8.0 - 10.5 mg/dL) 8.0Hematology WBC (4.5 - 11.0 x10 3/uL) 3.1 L RBC (4.00 - 5.60 x10 6/uL) 2.58 L Hgb (12.5 - 16.9 g/dL) 7.5 L Hct (37.5 - 50.7 %) 24.3 L MCV (81.0 - 99.0 fL) 94.2 MCH (27.0 - 33.0 pg) 29.1 MCHC (33.0 - 37.0 g/dL) 30.9 L RDW (11.5 - 14.5 %) 17.8 H Plt Count (150 - 400 x10 3/uL) 137 L MPV (7.0 - 9.0 fL) 11.0 H Neut % (Auto) (56.0 - 77.0 %) 73.8 Lymph % (Auto) (14.0 - 32.0 %) 12.8 L [place] % (Auto) (4.8 - 9.0 %) 9.8 H Eos % (Auto) (0.3 - 3.7 %) 1.6 Baso % (Auto) (0.0 - 2.0 %) 1.0 Neut # (Auto) (2.0 - 7.6 x10 3/uL) 2.25 Lymph # (Auto) (1.0 - 3.8 x10 3/uL) 0.39 L [place] # (Auto) (0.1 - 0.8 x10 3/uL) 0.30 Eos # (Auto) (0.0 - 0.2 x10 3/uL) 0.05 Baso # (Auto) (0.0 - 0.2 x10 3/uL) 0.03 Abs Immat Gran (auto) (0.00 - 0.03 x10 3/uL) 0.03 Add Manual Diff NO Immature Gran % (0.0 - 2.0 %) 1.0 Nucleated RBC % (0 - 0 %) 0.0 Nucleated RBCs # (Man) (0.0 - 0.1 x10 3/uL) 0.00 04/17 0713 Chemistry POC Glucose (70 - 110 MG/DL) 180 H Recent Impressions:CAT SCAN - CT GUID NDL PLCMT (Biopsy/Asp) 04/17 1035 Report Impression - Status: SIGNED Entered: 04/17/2023 1128 IMPRESSION: CT-guided bone marrow aspiration and core biopsy.Impression By: [email or web address] Og Croft M.D. Diagnosis, Assessment PlanFree Text A P:ulcer left foot.painPVD ulcer is benign...starting to peelcontinue local wound care.no xray found.venous u/s neg NIAS: pvd as expected.rec'd to pt prevalon boots. covering for Dr. Washington at 2254 RPT #:[id number] OF REPORTPRProgress ltnw4998-04-48A61:52:00G.[id number] able for patient rroqUWQWVLRKBTIQQC1980-00-55D04:54:19 [facility] 2023-04-17 17:59:00 [id number]/9h+Jz1o9qdFJ 0R9dxsyQ5FqE/RiLlilSF/OIhCn3035-53-32Y56:59:00 [facility] ([facility])Pulmonology Progress NoteREPORT#:[id number] REPORT STATUS: SignedDATE:04/17/23 TIME: 1759 PATIENT: TEVIN NYE UNIT #: [id number]#: [id number] [address] [birth year] AGE: 73 SEX: M ATTEND: Pablo Kumar MDADM AUTHOR: Sharmila Alan * ALL edits or amendments must be made on the electronic/computer document * SubjectiveComments:On room air, feels better, no new complaints ROSAll systems rev neg: except as marked Objective GeneralVS/I O:Last Documented: Result Date Time Pulse 49 04/17 1631 Pulse Ox 96 04/17 1600 B/P 136/52 04/17 1600 B/P Mean 80.1 04/17 1600 O2 Delivery Nasal cannula 04/17 1600 Temp 36.8 04/17 1600 Resp 15 04/17 1600 O2 Flow Rate 2 04/17 1328 FiO2 28 04/10 0800 24 hour I O ending at 0700: 04/17 0700 04/16 1900 Intake Total Output Total 400 Balance -400 Output, Urine 400 PATIENT WEIGHT: Weight (lb): Weight (oz): Weight (kg): 86.200 Medications:Active Meds + DC'd Last 24 HrsFentanyl Citrate (SUBLIMAZE) 0 .STK-MED ONE IV (DC) Heparin Sodium (HEPARIN 5000 UNITS/ML) 0 .STK-MED ONE MISC (DC) Lidocaine HCl (XYLOCAINE) 0 .STK-MED ONE LOCAL (DC) Midazolam HCl (VERSED) 0 .STK-MED ONE IV (DC) Enoxaparin Sodium (lovENOX) 70 MG 0800,1999 SUBQ Amiodarone HCl (CORDARONE) 200 MG DAILY PO Metoprolol Tartrate (LOPRESSOR) 25 MG Q8HR PO Atorvastatin Calcium (LIPITOR) 40 MG 2100 PO Lactulose (LACTULOSE) 20 GM BID PRN PRN PO Miscellaneous Information (LOVENOX PHARMACY TO DOSE) 1 EACH ASDIR SUBQ (CKD) Sterile Water (WATER FOR IRRIGATION) DRESSING CHANGE ASDIR PRN IRR Aspirin (ASPIRIN) 81 MG DAILY PO Fluoxetine HCl (PROzac) 10 MG QAM PO Insulin Human Lispro (HUMALOG) 0 AC HS SUBQ Albuterol/Ipratropium (DUONEB) 3 ML RTQ4H NEB Tamsulosin HCl (Flomax 0.4 mg) 0.8 MG BEDTIME PO Acetaminophen (TYLENOL) 650 MG Q4H PRN PRN PO Ondansetron HCl (ZOFRAN) 4 MG Q4H PRN PRN IV Physical ExamGeneral appearance: alert, awake, oriented, no acute distressHead/eyes: atraumatic, normocephalic, PERRL, EOMINeck: no JVD, no lymphadenopathyCardiovascular: normal heart sounds, normal S1/S2, regular rate rhythmRespiratory/chest: decreased breath sounds, on oxygen, aerating well, symmetric expansionAbdomen: soft, no guardingExtremities: moves all, no clubbing, no cyanosis, no edemaNeuro/SALES ASSISTANT: CNII-XII intactSkin: dry, intactUlcer: Type/cause: scab left foot.Psychiatry: normal affect, normal judgment/insight, normal mood ResultsFindings/Data:Laboratory Tests 04/17/23721:[Embedded Image Not Available]Laboratory Tests 04/17 04/17 04/17 04/17 04/16 1150 1149 0722 0713 2029 Chemistry Sodium (134 - 147 mEq/L) 137 Potassium (3.4 - 5.0 mEq/L) 4.4 Chloride (100 - 108 mEq/L) 110 H Carbon Dioxide (21 - 33 mEq/l) 27 Anion Gap (0 - 20) 4 BUN (7 - 18 mg/dL) 22 H Creatinine (0.6 - 1.3 mg/dL) 1.4 H Glomerular Filtr Rate (70 - 80) 53.4 L Glucose (70 - 110 mg/dL) 192 H POC Glucose (70 - 110 MG/DL) 175 H 177 H 180 H 186 H Calcium (8.0 - 10.5 mg/dL) 8.0 Laboratory Tests 04/17 722 Hematology WBC (4.5 - 11.0 x10 3/uL) 3.1 L RBC (4.00 - 5.60 x10 6/uL) 2.58 L Hgb (12.5 - 16.9 g/dL) 7.5 L Hct (37.5 - 50.7 %) 24.3 L MCV (81.0 - 99.0 fL) 94.2 MCH (27.0 - 33.0 pg) 29.1 MCHC (33.0 - 37.0 g/dL) 30.9 L RDW (11.5 - 14.5 %) 17.8 H Plt Count (150 - 400 x10 3/uL) 137 L MPV (7.0 - 9.0 fL) 11.0 H Neut % (Auto) (56.0 - 77.0 %) 73.8 Lymph % (Auto) (14.0 - 32.0 %) 12.8 L [place] % (Auto) (4.8 - 9.0 %) 9.8 H Eos % (Auto) (0.3 - 3.7 %) 1.6 Baso % (Auto) (0.0 - 2.0 %) 1.0 Neut # (Auto) (2.0 - 7.6 x10 3/uL) 2.25 Lymph # (Auto) (1.0 - 3.8 x10 3/uL) 0.39 L [place] # (Auto) (0.1 - 0.8 x10 3/uL) 0.30 Eos # (Auto) (0.0 - 0.2 x10 3/uL) 0.05 Baso # (Auto) (0.0 - 0.2 x10 3/uL) 0.03 Abs Immat Gran (auto) (0.00 - 0.03 x10 3/uL) 0.03 Add Manual Diff NO Immature Gran % (0.0 - 2.0 %) 1.0 Nucleated RBC % (0 - 0 %) 0.0 Nucleated RBCs # (Man) (0.0 - 0.1 x10 3/uL) 0.00 Radiology data:Recent Impressions:CAT SCAN - CT GUID NDL [facility] (Biopsy/Asp) 04/17 1035 Report Impression - Status: SIGNED Entered: 04/17/2023 1128 IMPRESSION: CT-guided bone marrow aspiration and core biopsy.Impression By: [email or web address] Og Croft M.D. Diagnosis, Assessment PlanFree Text A P:Acute on chronic hypoxemic respiratory failure supplemental O2 as needed and wean as tolerated Pulmonary embolism Initially diagnosed in November 2022 at outside hospital; was on Eliquis from diagnosis through February. CTA chest 03/03/2023 was negative for pulmonary embolism. Patient was discharged home 03/13/2023 and told to discontinue taking Eliquis.-D-dimer 1496. -VQ scan with intermediate probability. 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 Check bilateral lower extremity Dopplers -> neg-Renally dose lovenox @ 1mg/kg once daily -d/w cardio. will ultimately AC with eliquis ASA. Off plavix. Continue lovenoxfor now. COPD No exacerbation. On Combivent and ipratropium nebs at home.-May need repeat pulmonary function test outpatient. [facility] registration [facility] due to issues with the [facility] RLL nodule CT chest 03/03/2023. 1.5 x 0.8 cm nodular opacity in RLL needs follow-up in 3 months CAD / PAD S/p CABG 03/04/2023 Cardiothoracic surgery following Echo noted JERAMY/CKD Nephrology consult Strict I O. 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 S/P BMB per Heme PT/OTRehab eval at 1801 RPT #:[id number] OF REPORTPRProgress [id number]:59:00G.[id number] able for patient licrUGWZHIHWBBBIPH0488-98-72G54:01:43 [facility] 2023-04-17 14:41:00 [id number]+ [id number]+4u4EbtzsSKR5P azrWRRA366D0JckcumWrGn3Rc6J2594-18-32S48:41:00 [facility] Progress NoteREPORT#:[id number] REPORT STATUS: SignedDATE:04/17/23 TIME: 1441 PATIENT: TEVIN NYE UNIT #: [id number]#: [id number] [address] [birth year] AGE: 73 SEX: M ATTEND: Pablo Kumar [facility] AUTHOR: Pablo Kumar MD * ALL edits or amendments must be made on the electronic/computer document * SubjectiveChief complaint:s/p CT guided bm bx today. no major c/o. no cp. no sob. Objective GeneralVS/I O:Vital Signs: Date Time Temp Pulse Resp B/P B/P Pulse O2 O2 Flow FiO2 Mean Ox Delivery Rate 04/17 1328 131/67 70 Nasal 2 cannula 04/17 1146 98.1 57 15 123/66 84.8 98 Nasal cannula 04/17 1050 56 18 115/52 99 Nasal 2 cannula 04/17 1045 60 14 102/49 98 Nasal 3 cannula 04/17 1040 59 15 109/45 98 Nasal 3 cannula 04/17 1035 57 13 90/54 100 Nasal 3 cannula 04/17 1030 58 14 66/41 100 Nasal 3 cannula 04/17 1029 Nasal 2 cannula 04/17 1025 67 20 134/53 100 Nasal 2 cannula 04/17 0730 94 Nasal 2 cannula 04/17 0712 97.7 52 15 125/56 79.3 99 Room air 04/17 0331 97.5 64 14 130/61 84.0 100 04/16 2339 98.1 73 14 119/56 77.3 98 04/16 2146 98 Nasal 3 cannula 04/16 1912 98.1 59 14 117/56 76.4 97 04/16 1622 97.9 78 14 152/77 102.1 99 Room air 04/16 1553 94 Nasal 2 cannula 24 hour I O ending at 0700: 04/17 0700 04/16 1900 Intake Total Output Total 400 Balance -400 Output, Urine 400 PATIENT WEIGHT: Weight (lb): Weight (oz): Weight (kg): 86.200 Physical ExamGeneral appearance: alert, awakeHead/Eyes: atraumatic, clear cornea, EOMINeck: supple/no meningismusCardiovascular: normal heart sounds, regular rate rhythm, no gallop, no murmur, no rubRespiratory: aerating well, clear to auscultation, symmetric expansionAbdomen: non-tender, normal bowel sounds, soft, no distentionExtremities: no clubbing, no cyanosis, no edemaMusculoskeletal: normal inspection, painless range of motionNeuro/SALES ASSISTANT: alert, oriented X 3, CNII-XII intactSkin: dry, intactUlcer: Type/cause: scab left foot. ResultsRadiology data:Laboratory Tests 04/17/23 0722:[Embedded Image Not Available] 04/16/23 0643:[Embedded Image Not Available] Current Medications Sig/Yas Start time Last Medication Dose Route Stop Time Status Admin Fentanyl Citrate 0 .STK-MED ONE 04/17 941 DC 04/17 IV 1025 Heparin Sodium 0 .STK-MED ONE 04/17 941 DC 04/17 MISC 1026 Lidocaine HCl 0 .STK-MED ONE 04/17 941 DC 04/17 LOCAL 1026 Midazolam HCl 0 .STK-MED ONE 04/17 941 DC 04/17 IV 1025 Enoxaparin Sodium 70 MG 0800,04/15 AC 04/16 SUBQ 05/15 1959 2140 Amiodarone HCl 200 MG DAILY 04/14 09 AC 04/16 PO 05/14 0859 0902 Metoprolol Tartrate 25 MG Q8HR 04/10 1400 AC 04/17 PO 05/08 2259 0507 Atorvastatin Calcium 40 MG 2100 04/09 2100 AC 04/16 PO 05/09 205 2141 Lactulose 20 GM BID PRN PRN 04/09 1900 AC 04/09 PO 05/09 1859 1933 Miscellaneous 1 EACH ASDIR 04/09 1530 CKD Information SUBQ 05/16 1529 Sterile Water See Dose ASDIR PRN 04/09 1230 AC Insts (1) IRR 05/09 1229 Aspirin 81 MG DAILY 04/09 1015 AC 04/17 PO 05/09 1014 1119 Fluoxetine HCl 10 MG QAM 04/09 0900 AC 04/17 PO 05/09 0859 1120 Insulin Human Lispro 0 AC HS 04/09 0730 AC 04/16 SUBQ 05/09 0729 1745 Albuterol/Ipratropium 3 ML RTQ4H 04/09 0000 AC 04/17 NEB 05/09 0000 1206 Tamsulosin HCl 0.8 MG BEDTIME 04/08 2300 AC 04/16 PO 05/08 2259 2140 Acetaminophen 650 MG Q4H PRN PRN 04/08 1800 AC 04/13 PO 05/08 1759 2147 Ondansetron HCl 4 MG Q4H PRN PRN 04/08 1800 AC IV 05/08 1759 Dose Instructions:(1)Sterile Water: DRESSING CHANGE Laboratory Tests: 04/17 04/17 04/17 04/17 04/16 1150 1149 0722 0713 2028Chemistry Sodium (134 - 147 mEq/L) 137 Potassium (3.4 - 5.0 mEq/L) 4.4 Chloride (100 - 108 mEq/L) 110 H Carbon Dioxide (21 - 33 mEq/l) 27 Anion Gap (0 - 20) 4 BUN (7 - 18 mg/dL) 22 H Creatinine (0.6 - 1.3 mg/dL) 1.4 H Glomerular Filtr Rate (70 - 80) 53.4 L Glucose (70 - 110 mg/dL) 192 H POC Glucose (70 - 110 MG/DL) 175 H 177 H 180 H 186 H Calcium (8.0 - 10.5 mg/dL) 8.0Hematology WBC (4.5 - 11.0 x10 3/uL) 3.1 L RBC (4.00 - 5.60 x10 6/uL) 2.58 L Hgb (12.5 - 16.9 g/dL) 7.5 L Hct (37.5 - 50.7 %) 24.3 L MCV (81.0 - 99.0 fL) 94.2 MCH (27.0 - 33.0 pg) 29.1 MCHC (33.0 - 37.0 g/dL) 30.9 L RDW (11.5 - 14.5 %) 17.8 H Plt Count (150 - 400 x10 3/uL) 137 L MPV (7.0 - 9.0 fL) 11.0 H Neut % (Auto) (56.0 - 77.0 %) 73.8 Lymph % (Auto) (14.0 - 32.0 %) 12.8 L [place] % (Auto) (4.8 - 9.0 %) 9.8 H Eos % (Auto) (0.3 - 3.7 %) 1.6 Baso % (Auto) (0.0 - 2.0 %) 1.0 Neut # (Auto) (2.0 - 7.6 x10 3/uL) 2.25 Lymph # (Auto) (1.0 - 3.8 x10 3/uL) 0.39 L [place] # (Auto) (0.1 - 0.8 x10 3/uL) 0.30 Eos # (Auto) (0.0 - 0.2 x10 3/uL) 0.05 Baso # (Auto) (0.0 - 0.2 x10 3/uL) 0.03 Abs Immat Gran (auto) (0.00 - 0.03 0.03x10 3/uL) Add Manual Diff NO Immature Gran % (0.0 - 2.0 %) 1.0 Nucleated RBC % (0 - 0 %) 0.0 Nucleated RBCs # (Man) (0.0 - 0.1 0.00x10 3/uL) 04/16 1621 Chemistry POC Glucose (70 - 110 MG/DL) 180 H Recent Impressions:CAT SCAN - CT GUID NDL [facility] (Biopsy/Asp) 04/17 1035 Report Impression - Status: SIGNED Entered: 04/17/2023 1128 IMPRESSION: CT-guided bone marrow aspiration and core biopsy.Impression By: [email or web address] - Ashley Croft M.D. Diagnosis, Assessment Plan Free Text DxA P NotesFree text DxA P notes:SOB (presumed PE) cardiology and pulmonary seenon 2.5 to 3 liters of oxygen per n/cecho wnlwill give lasix twenty mg one time dosecheck chest xray04/14- CXR on 04/13 was negative. pulmonary following. elevated D-dimer (presumed PE)V-Q scan with intermediate probabilityon therapeutic lovenox renally dosed for now04/14- pulmonary following...worsening anemia, but guiaiac negaive anemia (pancytopenia)04/14- hgb dropped to 8 today (9.7 two days ago). ask heme to see. h/o cancer. guiaiac negative. 04/15- hgb stable at 8. 8- hgb 7.3...bone marrow bx planned today?04/17 - hgb 7.5. s/p BM bx today. results pending. JERAMY with CKDrenal seenon IVFcreat improving COPDon home oxygen h/o CADs/p CABG X4 on 3CTS consulted and seen DMaccuchecks and SSI prncheck A1CBG controlled HTNbp controlledresumed home meds HLDon statinstable Prostate cancers/p XRT pulmonary nodule04/17 - need f/u in 3 months. Debilityper PT/OT could be a post acute rehab candidate consulted rehabrecommend IRF check labs in [facility]/up wiht DR. Rinaldi 04/14- awiaitng tranfer to rehab. folow h/h. ask heme to see.8/8- h/h stable. cleared by GI to change lovenox to Eliquis if pulmonary wishes. 8- hgb 7.3. Bone marrow bx planned.04/17 - s/p bm bx today. results pending. hgb 7.5. on full dose lovenox. change to Eliquis when ok with pulmonary. need outpt f/u for pulmonary nodule. Pt is contemplating going home if no approval for rehab. at 1446 RPT #:[id number] OF REPORTPRProgress [id number]:41:00G.[id number] able for patient mmykXAVCXHKWTFNHNQ0774-54-40Q77:46:20 [facility] 2023-04-17 11:38:00 [id number]+TM9CIV1/ZLd5FSOkIZ0tDg8JH h95/YDMKWRw2l499anSFhlovoQC9889-21-09Q84:38:00 [facility] Progress NoteREPORT#:[id number] REPORT STATUS: SignedDATE:04/17/23 TIME: 1138 PATIENT: TEVIN NYE UNIT #: [id number]#: [id number] [address] [birth year] AGE: 73 SEX: M ATTEND: Pablo Kumar [facility] AUTHOR: Glendy Paz MD * ALL edits or amendments must be made on the electronic/computer document * SubjectiveChief complaint:Follow-up of acute renal failure, ATN/AINComments:Status post bone marrow biopsy Objective GeneralVS/I O:Vital Signs: Date Time Temp Pulse Resp B/P B/P Pulse O2 O2 Flow FiO2 Mean Ox Delivery Rate 04/17 1029 Nasal 2 cannula 04/17 0730 94 Nasal 2 cannula 04/17 0712 97.7 52 15 125/56 79.3 99 Room air 04/17 0331 97.5 64 14 130/61 84.0 100 04/16 2339 98.1 73 14 119/56 77.3 98 04/16 2146 98 Nasal 3 cannula 04/16 1912 98.1 59 14 117/56 76.4 97 04/16 1622 97.9 78 14 152/77 102.1 99 Room air 04/16 1553 94 Nasal 2 cannula 04/16 1221 Nasal 2 cannula 24 hour I O ending at 0700: 04/17 0700 04/16 1900 Intake Total Output Total 400 Balance -400 Output, Urine 400 PATIENT WEIGHT: Weight (lb): Weight (oz): Weight (kg): 86.200 MedicationsActive Meds + DC'd Last 24 HrsFentanyl Citrate (SUBLIMAZE) 0 .STK-MED ONE .ROUTE (DC) Heparin Sodium (HEPARIN 5000 UNITS/ML) 0 .STK-MED ONE .ROUTE (DC) Lidocaine HCl (XYLOCAINE) 0 .STK-MED ONE .ROUTE (DC) Midazolam HCl (VERSED) 0 .STK-MED ONE .ROUTE (DC) Enoxaparin Sodium (lovENOX) 70 MG 0800,1999 SUBQ Amiodarone HCl (CORDARONE) 200 MG DAILY PO Metoprolol Tartrate (LOPRESSOR) 25 MG Q8HR PO Atorvastatin Calcium (LIPITOR) 40 MG 2100 PO Lactulose (LACTULOSE) 20 GM BID PRN PRN PO Miscellaneous Information (LOVENOX PHARMACY TO DOSE) 1 EACH ASDIR SUBQ (CKD) Sterile Water (WATER FOR IRRIGATION) DRESSING CHANGE ASDIR PRN IRR Aspirin (ASPIRIN) 81 MG DAILY PO Fluoxetine HCl (PROzac) 10 MG QAM PO Insulin Human Lispro (HUMALOG) 0 AC HS SUBQ Albuterol/Ipratropium (DUONEB) 3 ML RTQ4H NEB Tamsulosin HCl (Flomax 0.4 mg) 0.8 MG BEDTIME PO Acetaminophen (TYLENOL) 650 MG Q4H PRN PRN PO Ondansetron HCl (ZOFRAN) 4 MG Q4H PRN PRN IV Physical ExamGeneral appearance: sleeping comfortablyHead/eyes: atraumatic, normocephalicENT: moist mucous membranesNeck: supple/no meningismus, no JVDCardiovascular: normal heart sounds, no rubRespiratory: aerating well, clear to auscultation, no distressGenitourinary: no bladder distentionExtremities: no edemaUlcer: Type/cause: scab left foot. ResultsFindings/Data:Laboratory Tests 04/17 04/17 04/16 04/16 0722 0713 2029 1621 Chemistry Sodium (134 - 147 mEq/L) 137 Potassium (3.4 - 5.0 mEq/L) 4.4 Chloride (100 - 108 mEq/L) 110 H Carbon Dioxide (21 - 33 mEq/l) 27 Anion Gap (0 - 20) 4 BUN (7 - 18 mg/dL) 22 H Creatinine (0.6 - 1.3 mg/dL) 1.4 H Glomerular Filtr Rate (70 - 80) 53.4 L Glucose (70 - 110 mg/dL) 192 H POC Glucose (70 - 110 MG/DL) 180 H 186 H 180 H Calcium (8.0 - 10.5 mg/dL) 8.0 Laboratory Tests 04/17 0722 Hematology WBC (4.5 - 11.0 x10 3/uL) 3.1 L RBC (4.00 - 5.60 x10 6/uL) 2.58 L Hgb (12.5 - 16.9 g/dL) 7.5 L Hct (37.5 - 50.7 %) 24.3 L MCV (81.0 - 99.0 fL) 94.2 MCH (27.0 - 33.0 pg) 29.1 MCHC (33.0 - 37.0 g/dL) 30.9 L RDW (11.5 - 14.5 %) 17.8 H Plt Count (150 - 400 x10 3/uL) 137 L MPV (7.0 - 9.0 fL) 11.0 H Neut % (Auto) (56.0 - 77.0 %) 73.8 Lymph % (Auto) (14.0 - 32.0 %) 12.8 L [place] % (Auto) (4.8 - 9.0 %) 9.8 H Eos % (Auto) (0.3 - 3.7 %) 1.6 Baso % (Auto) (0.0 - 2.0 %) 1.0 Neut # (Auto) (2.0 - 7.6 x10 3/uL) 2.25 Lymph # (Auto) (1.0 - 3.8 x10 3/uL) 0.39 L [place] # (Auto) (0.1 - 0.8 x10 3/uL) 0.30 Eos # (Auto) (0.0 - 0.2 x10 3/uL) 0.05 Baso # (Auto) (0.0 - 0.2 x10 3/uL) 0.03 Abs Immat Gran (auto) (0.00 - 0.03 x10 3/uL) 0.03 Add Manual Diff NO Immature Gran % (0.0 - 2.0 %) 1.0 Nucleated RBC % (0 - 0 %) 0.0 Nucleated RBCs # (Man) (0.0 - 0.1 x10 3/uL) 0.00 Radiology data:[facility] Impressions:[facility]17 1035 Report Impression - Status: SIGNED Entered: 04/17/2023 1128 IMPRESSION: CT-guided bone marrow aspiration and core biopsy.Impression By: BuckPKCharles Croft M.D. Diagnosis, Assessment PlanFree Text A P:Assessment/plan:1. Acute renal failure most likely secondary to volume depletion, overdiuresis and ATN/AIN with Bactrim and lisinopril on board. Cr further better 2.9-2.4-1.9> 1.2 >1.3>1.4, stable today, renal sono without hydronephrosis. Likely has underlying CKD. 2. Coronary artery disease: Status post CABG, continue home medications 3. COPD: Symptomatic treatment 4. History of prostate cancer, s/p radiation 2021 5. Anemia: Requested stool occult blood-not sent yet, and iron studies reviewed-ok, transfuse as needed for hemoglobin less than 7. Hematology following, sp bone marrow biopsy pending rehab. stable from nephrology for discharge. at 1421 RPT #:[id number] OF REPORTPRProgress [id number]:38:00G.[id number] able for patient [id number]:24:56 [facility] 2023-04-17 11:27:00 [id number] [id number]:27:00 [facility] Progress NoteREPORT#:[id number] REPORT STATUS: SignedDATE:04/17/23 TIME: 1127 PATIENT: TEVIN NYE UNIT #: [id number]#: [id number] ROOM[address]DOB: [birth year] AGE: 73 SEX: M ATTEND: StacyPablo Arnold MDADM AUTHOR: Roberto Galeano MD * ALL edits or amendments must be made on the electronic/computer document * SubjectiveComments:no bleeding Review of SystemsAdditional notes:10 point ros neg except hpi Objective GeneralVS/I O:Last Documented: Result Date Time O2 Delivery Nasal cannula 04/17 1029 O2 Flow Rate 2 04/17 1029 Pulse Ox 94 04/17 0730 B/P 125/56 04/17 0712 B/P Mean 79.3 04/17 07 Temp 36.5 04/17 07 Pulse 52 04/17 07 Resp 15 04/17 0712 FiO2 28 04/10 0800 24 hour I O ending at 0700: 04/17 0700 04/16 1900 Intake Total Output Total 400 Balance -400 Output, Urine 400 PATIENT WEIGHT: Weight (lb): Weight (oz): Weight (kg): 86.200 Medications:Active Meds + DC'd Last 24 HrsFentanyl Citrate (SUBLIMAZE) 0 .STK-MED ONE .ROUTE (DC) Heparin Sodium (HEPARIN 5000 UNITS/ML) 0 .STK-MED ONE .ROUTE (DC) Lidocaine HCl (XYLOCAINE) 0 .STK-MED ONE .ROUTE (DC) Midazolam HCl (VERSED) 0 .STK-MED ONE .ROUTE (DC) Enoxaparin Sodium (lovENOX) 70 MG 0800,2000 SUBQ Amiodarone HCl (CORDARONE) 200 MG DAILY PO Metoprolol Tartrate (LOPRESSOR) 25 MG Q8HR PO Atorvastatin Calcium (LIPITOR) 40 MG 2100 PO Lactulose (LACTULOSE) 20 GM BID PRN PRN PO Miscellaneous Information (LOVENOX PHARMACY TO DOSE) 1 EACH ASDIR SUBQ (CKD) Sterile Water (WATER FOR IRRIGATION) DRESSING CHANGE ASDIR PRN IRR Aspirin (ASPIRIN) 81 MG DAILY PO Fluoxetine HCl (PROzac) 10 MG QAM PO Insulin Human Lispro (HUMALOG) 0 AC HS SUBQ Albuterol/Ipratropium (DUONEB) 3 ML RTQ4H NEB Tamsulosin HCl (Flomax 0.4 mg) 0.8 MG BEDTIME PO Acetaminophen (TYLENOL) 650 MG Q4H PRN PRN PO Ondansetron HCl (ZOFRAN) 4 MG Q4H PRN PRN IV Physical ExamGeneral appearance: alert, awakeHEENT: atraumatic, normocephalicNeck: decreased range of motionCardiovascular: normal capillary refill, regular rate rhythmRespiratory: no distress, on oxygenAbdomen: non-tender, soft, no distentionExtremities: decreased range of motionNeuro/SALES ASSISTANT: alert, oriented X 3Skin: dry, intactUlcer: Type/cause: scab left foot.Psychiatry: normal affect, normal judgment/insight ResultsFindings/Data:Laboratory Tests 04/17/23721:[Embedded Image Not Available]Laboratory Tests 04/17 0713 2028 1621 Chemistry Sodium (134 - 147 mEq/L) 137 Potassium (3.4 - 5.0 mEq/L) 4.4 Chloride (100 - 108 mEq/L) 110 H Carbon Dioxide (21 - 33 mEq/l) 27 Anion Gap (0 - 20) 4 BUN (7 - 18 mg/dL) 22 H Creatinine (0.6 - 1.3 mg/dL) 1.4 H Glomerular Filtr Rate (70 - 80) 53.4 L Glucose (70 - 110 mg/dL) 192 H POC Glucose (70 - 110 MG/DL) 180 H 186 H 180 H Calcium (8.0 - 10.5 mg/dL) 8.0 Laboratory Tests 04/17 722 Hematology WBC (4.5 - 11.0 x10 3/uL) 3.1 L RBC (4.00 - 5.60 x10 6/uL) 2.58 L Hgb (12.5 - 16.9 g/dL) 7.5 L Hct (37.5 - 50.7 %) 24.3 L MCV (81.0 - 99.0 fL) 94.2 MCH (27.0 - 33.0 pg) 29.1 MCHC (33.0 - 37.0 g/dL) 30.9 L RDW (11.5 - 14.5 %) 17.8 H Plt Count (150 - 400 x10 3/uL) 137 L MPV (7.0 - 9.0 fL) 11.0 H Neut % (Auto) (56.0 - 77.0 %) 73.8 Lymph % (Auto) (14.0 - 32.0 %) 12.8 L [place] % (Auto) (4.8 - 9.0 %) 9.8 H Eos % (Auto) (0.3 - 3.7 %) 1.6 Baso % (Auto) (0.0 - 2.0 %) 1.0 Neut # (Auto) (2.0 - 7.6 x10 3/uL) 2.25 Lymph # (Auto) (1.0 - 3.8 x10 3/uL) 0.39 L [place] # (Auto) (0.1 - 0.8 x10 3/uL) 0.30 Eos # (Auto) (0.0 - 0.2 x10 3/uL) 0.05 Baso # (Auto) (0.0 - 0.2 x10 3/uL) 0.03 Abs Immat Gran (auto) (0.00 - 0.03 x10 3/uL) 0.03 Add Manual Diff NO Immature Gran % (0.0 - 2.0 %) 1.0 Nucleated RBC % (0 - 0 %) 0.0 Nucleated RBCs # (Man) (0.0 - 0.1 x10 3/uL) 0.00 Diagnosis, Assessment PlanFree Text A P:Assessment dyspnea on exertionPE, on lovenoxhx of prostate cancer, s/p radiation therapy pancytopeniarectal bleeding, mild, resolved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 Plan: - monitor h/h, transfuse as needed- monitor for further bleeding - diet as tolerated at 1131 [facility] #:[id number] OF REPORTPRProgress [id number]:27:00G.[id number] able for patient [id number]:31:42 [facility] 2023-04-17 09:02:00 [id number]Pk1+ Z0YhLavwryi/I2NPUbC0V2ojnKp4117-49-76S15:02:00 [facility] ([facility])Rehab Progress NoteREPORT#:[id number] REPORT STATUS: SignedDATE:04/17/23 TIME: 901 PATIENT: TEVIN NYE UNIT #: [id number]#: [id number] [address]DOB: [birth year] AGE: 73 SEX: M ATTEND: Pablo Kumar [facility] AUTHOR: Nicolasa Galeano PA-C * ALL edits or amendments must be made on the electronic/computer document * SubjectiveChief complaint:Pt seen and examined. No acute distress.He is bed. Today he is to get a bone marrow bx. States not sure what time. NPO. Objective GeneralVS:Vital Signs: Date Time Temp Pulse Resp B/P B/P Pulse O2 O2 Flow FiO2 Mean Ox Delivery Rate 04/17 0712 97.7 52 15 125/56 79.3 99 Room air 04/17 0331 97.5 64 14 130/61 84.0 100 04/16 2339 98.1 73 14 119/56 77.3 98 04/16 2146 98 Nasal 3 cannula 04/16 1912 98.1 59 14 117/56 76.4 97 04/16 1622 97.9 78 14 152/77 102.1 99 Room air 04/16 1553 94 Nasal 2 cannula 04/16 1221 Nasal 2 cannula 04/16 1101 98.4 76 18 135/71 92.0 93 Room air PATIENT WEIGHT: Weight (lb): Weight (oz): Weight (kg): 86.200 Medications:Active Meds + DC'd Last 24 HrsEnoxaparin Sodium (lovENOX) 70 MG 0800,2000 SUBQ Amiodarone HCl (CORDARONE) 200 MG DAILY PO Metoprolol Tartrate (LOPRESSOR) 25 MG Q8HR PO Atorvastatin Calcium (LIPITOR) 40 MG 2100 PO Lactulose (LACTULOSE) 20 GM BID PRN PRN PO Miscellaneous Information (LOVENOX PHARMACY TO DOSE) 1 EACH ASDIR SUBQ (CKD) Sterile Water (WATER FOR IRRIGATION) DRESSING CHANGE ASDIR PRN IRR Aspirin (ASPIRIN) 81 MG DAILY PO Fluoxetine HCl (PROzac) 10 MG QAM PO Insulin Human Lispro (HUMALOG) 0 AC HS SUBQ Albuterol/Ipratropium (DUONEB) 3 ML RTQ4H NEB Tamsulosin HCl (Flomax 0.4 mg) 0.8 MG BEDTIME PO Acetaminophen (TYLENOL) 650 MG Q4H PRN PRN PO Ondansetron HCl (ZOFRAN) 4 MG Q4H PRN PRN IV Functional ProgressFunctional progress: GAIT TRAINING 1. Medical Record reviewed. 2. Explanation of procedure, desired effects, and precautions reviewed with patient and/or caregiver. 3. Patient positioned for comfort, dressed for privacy, footwear utilized. 4. Exposed skin inspected before and after procedure. 5. Patient checked for lines, tubes, dressing, incisions, and other medical devices for safe mobility and/or positioning. SUPERVISION: 1. One on one supervision with cueing and assistance provided to ensure proper performance of all activities. Yes Precautions: Fall Pre- Gait Mobility Y/N: Yes Safety addressed through use of: Gait Belt Verbal Cues Tactile Cues Extra Personnel Gait Device RW Weightbearing: No Restriction Ambulation Distance: 15'X1 170'X1 w/ RW w/c follow. Progression: Forward Lateral, Right Lateral, Left Assistance Level: Supervision or Set-up Gait Deviations: SHORT STEPS FLEXED FORWARD Antalgic Gait Left Effects of Treatment: [place] of care decreased Circulation improved Gait quality improved Function Improved Post TX Precautions: FALL WC TO FOLLOW Review Plan of Care: Yes PT charges: Gait Training [id number] Gait Cmt: Pt tolerated tx, very motivated to participate in gait training however distance limited today due to increased SOB on 3L. SpO2 94%. Pt left sitting up in chair, notified RN. If this is the patient's last treatment, this entry Start Time: 1426 Stop Time: 4 Treatment Time: (minutes) 0:28 Completed by: Kali Charles Conference/Supervising PT: Yes Supervising Therapist: Roya Henderson BED MOBILITY: Yes Supine to Sit: Modified Baker TRANSFERS: Yes Sit to/from stand: Supervision or Set-up CARDIO-RESPIRATORY IMPAIRMENT Items determined to be OUTSIDE the Functional Limits are as follows: . Mobility: How much help from another person does the patient currently need: Moving from lying on your back to sitting on the side of a flat bed . Physical Therapy: Plan of Care PT Problem List: 1 Impaired Functional Mobil 4 Impaired Strength/ROM 3 Impaired Balance 5 Impaired Activity Xavier. 8 Impaired Gait Short Term Goals TARGET DATE GOAL MET 1: PATIENT TO PERFORM BED <> CHAIR MOD I. 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 Medical Record reviewed. 2. Explanation of procedure, desired effects, and precautions reviewed with patient and/or caregiver. 3. Patient positioned for comfort and privacy. 4. Exposed skin inspected before and after procedure. 5. Patient checked for lines, tubes, dressing, incisions, and other medical devices for safe mobility and/or positioning. 6. Patient verbalizes awareness and willingness to participate as applicable. SUPERVISION: 1. One on one supervision with cueing and assistance provided to ensure proper performance of all activities: Yes ACTIVITIES PERFORMED: Lower Extremity Dressing: Yes Precautions: Fall Requires verbal cues to direct task: Yes Positions Used: Supine in bed with HOB up FUNCTIONAL BALANCE DURING ACTIVITY: Fair TREATMENT OUTCOMES: Goals Achieved: N Progress demonstrated toward desired goals: Y Decreased level of assistance needed: Y Performance limited by: Fatigue Activity tolerance: 20-30 minutes Document OT charges: SELF/HOME MGT/ADL [id number] If this is the patient's last treatment, this entry Start Time: 1001 Stop Time: 1027 Treatment time (minutes): 0:26 Completed by: Elise Randhawa Conference/Supervising OT: Arnold Supervising Therapist: Alia Hassan GROOMING/HYGIENE: Safety awareness demonstrated Lower Extremity Dressing: Maximal Assistance Increased time required: Yes Requires set up of supplies: Yes Requires physical assist to dress Lower Extremity: Don Clothing and Adjust Doff Clothing and Adjust Due to: Decrease mobility/balance Decreased Range of Motion . 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 . Physical ExamGeneral appearance: alert, awakePsych: alert, normal affectNeck: non-tender, suppleCardiovascular: regular rate rhythm, S1/J0Ihctnyznfmk: diminished breath sounds, aerating wellAbdomen: bowel sounds present, soft, non-tenderUlcer: Type/cause: scab left foot.Musculoskeletal - general: Musculoskeletal - general: normal muscle massNeuro/SALES ASSISTANT: alert, oriented X 3, CNII-XII intact, normal speech, no sensory deficits ResultsFindings/Data:Laboratory Tests: 04/17 04/17 04/16 04/16 04/16 0722 0713 2029 1621 1103Chemistry Sodium (134 - 147 mEq/L) 137 Potassium (3.4 - 5.0 mEq/L) 4.4 Chloride (100 - 108 mEq/L) 110 H Carbon Dioxide (21 - 33 mEq/l) 27 Anion Gap (0 - 20) 4 BUN (7 - 18 mg/dL) 22 H Creatinine (0.6 - 1.3 mg/dL) 1.4 H Glomerular Filtr Rate (70 - 80) 53.4 L Glucose (70 - 110 mg/dL) 192 H POC Glucose (70 - 110 MG/DL) 180 H 186 H 180 H 218 H Calcium (8.0 - 10.5 mg/dL) 8.0Hematology WBC (4.5 - 11.0 x10 3/uL) 3.1 L RBC (4.00 - 5.60 x10 6/uL) 2.58 L Hgb (12.5 - 16.9 g/dL) 7.5 L Hct (37.5 - 50.7 %) 24.3 L MCV (81.0 - 99.0 fL) 94.2 MCH (27.0 - 33.0 pg) 29.1 MCHC (33.0 - 37.0 g/dL) 30.9 L RDW (11.5 - 14.5 %) 17.8 H Plt Count (150 - 400 x10 3/uL) 137 L MPV (7.0 - 9.0 fL) 11.0 H Neut % (Auto) (56.0 - 77.0 %) 73.8 Lymph % (Auto) (14.0 - 32.0 %) 12.8 L [place] % (Auto) (4.8 - 9.0 %) 9.8 H Eos % (Auto) (0.3 - 3.7 %) 1.6 Baso % (Auto) (0.0 - 2.0 %) 1.0 Neut # (Auto) (2.0 - 7.6 x10 3/uL) 2.25 Lymph # (Auto) (1.0 - 3.8 x10 3/uL) 0.39 L [place] # (Auto) (0.1 - 0.8 x10 3/uL) 0.30 Eos # (Auto) (0.0 - 0.2 x10 3/uL) 0.05 Baso # (Auto) (0.0 - 0.2 x10 3/uL) 0.03 Abs Immat Gran (auto) (0.00 - 0.03 0.03x10 3/uL) Add Manual Diff NO Immature Gran % (0.0 - 2.0 %) 1.0 Nucleated RBC % (0 - 0 %) 0.0 Nucleated RBCs # (Man) (0.0 - 0.1 0.00x10 3/uL) Diagnosis, Assessment PlanFree Text A P:73 year old male with acute on chronic respiratory failure, elevated D-dimer, JERAMY on CKD, recent CABG and weakness. Continue with PT/OT. Recommend IRF placement for his ongoing medical and rehabilitation needs. He is willing to stay here at [facility]. 04/14: Continue with therapy as tolerated. Pending IRF transfer. Encouraged increased time EOB/OOB to build endurance, balance and strength.04/15: Gi cleared to start on anticoagulation given PE gareth. Cr stable and trending down. Hematology consulted due to leukopenia along with anemia. Pt noted with elevated retic count. ? may need bone marrow bx. PT/OT continued. OOBdaily. 04/16: Planning for bone marrow bx. PT/OT. States improving gait. Hgb dropping. Today 7.3. Monitor when OOB. 04/17: Continue OOB daily and working with therapy. Hgb dropped. Bone marrow Bx today. Remains pancytopenic. Rehab attestation:Face to face exam completed. Treatment plan discussed with patient. Meets continued stay criteria. Agree with interdisciplinary treatment plan. at 1748 RPT #:[id number] OF REPORTPRProgress [id number]:02:00G.[id number] able for patient ibdjATKEYORRGKQINX6449-96-24W24:49:01 [facility] 2023-04-16 22:54:00 [id number] [id number]/oB10xIEC3/G603805-20-26V85:54:00 [facility] ([facility])Avery/Oncology Progress NoteREPORT#:[id number] REPORT STATUS: SignedDATE:04/16/23 TIME: 2253 PATIENT: TEVIN NYE UNIT #: [id number]#: [id number] [address] [birth year] AGE: 73 SEX: M [facility] AUTHOR: Dakota Arvizu MD * ALL edits or amendments must be made on the electronic/computer document * SubjectiveChief Complaint:Denies having any pain or other symptoms. Objective Physical ExamVS:Vital SignsDate Temp Pulse Resp B/P B/P Mean Pulse Ox DcX539/-04/16 36.6-36.9 50-78 14-18 109-152/45-77 66.4-102.1 93-99 Last Documented: Result Date Time Pulse Ox 98 04/16 2146 O2 Delivery Nasal cannula 04/16 2146 O2 Flow Rate 3 04/16 2146 B/P 117/56 04/16 1912 B/P Mean 76.4 04/16 1912 Temp 36.7 04/16 1912 Pulse 59 04/16 1912 Resp 14 04/16 1912 FiO2 28 04/10 0800 General appearance: alert, awakeHEENT: atraumatic, normocephalicNeck: full range of motion, non-tender, supple/no meningismus, no JVD, no lymphadenopathyCardiovascular: regular rate and rhythmRespiratory: clear to auscultationAbdomen: non-tender, normal bowel sounds, soft, no distention, no guarding, no mass/organomegaly, no reboundExtremities: moves all, normal capillary refill, no edemaMusculoskeletal: full range of motion, normal inspectionNeuro/SALES ASSISTANT: alert, oriented X 3Ulcer: Type/cause: scab left foot. ResultsFindings/Data:Laboratory Tests 04/16/23 0643:[Embedded Image Not Available]Laboratory Tests 04/16 1621 1103 0744 0643 Chemistry Sodium (134 - 147 mEq/L) 137 Potassium (3.4 - 5.0 mEq/L) 4.2 Chloride (100 - 108 mEq/L) 107 Carbon Dioxide (21 - 33 mEq/l) 27 Anion Gap (0 - 20) 8 BUN (7 - 18 mg/dL) 24 H Creatinine (0.6 - 1.3 mg/dL) 1.4 H Glomerular Filtr Rate (70 - 80) 53.4 L Glucose (70 - 110 mg/dL) 204 H POC Glucose (70 - 110 MG/DL) 186 H 180 H 218 H 193 H Calcium (8.0 - 10.5 mg/dL) 8.0 Laboratory Tests 04/16 0643 Hematology WBC (4.5 - 11.0 x10 3/uL) 3.7 L RBC (4.00 - 5.60 x10 6/uL) 2.50 L Hgb (12.5 - 16.9 g/dL) 7.3 L Hct (37.5 - 50.7 %) 23.5 L MCV (81.0 - 99.0 fL) 94.0 MCH (27.0 - 33.0 pg) 29.2 MCHC (33.0 - 37.0 g/dL) 31.1 L RDW (11.5 - 14.5 %) 17.9 H Plt Count (150 - 400 x10 3/uL) 149 L MPV (7.0 - 9.0 fL) 11.1 H Neut % (Auto) (56.0 - 77.0 %) 75.6 Lymph % (Auto) (14.0 - 32.0 %) 10.2 L [place] % (Auto) (4.8 - 9.0 %) 10.5 H Eos % (Auto) (0.3 - 3.7 %) 2.4 Baso % (Auto) (0.0 - 2.0 %) 0.5 Neut # (Auto) (2.0 - 7.6 x10 3/uL) 2.80 Lymph # (Auto) (1.0 - 3.8 x10 3/uL) 0.38 L [place] # (Auto) (0.1 - 0.8 x10 3/uL) 0.39 Eos # (Auto) (0.0 - 0.2 x10 3/uL) 0.09 Baso # (Auto) (0.0 - 0.2 x10 3/uL) 0.02 Abs Immat Gran (auto) (0.00 - 0.03 x10 3/uL) 0.03 Add Manual Diff NO Immature Gran % (0.0 - 2.0 %) 0.8 Nucleated RBC % (0 - 0 %) 0.0 Nucleated RBCs # (Man) (0.0 - 0.1 x10 3/uL) 0.00 Radiology data:Current Medications Sig/Yas Start time Last Medication Dose Route Stop Time Status Admin Enoxaparin Sodium 70 MG 08,04/15 AC 04/16 SUBQ 05/15 1959 2140 Amiodarone HCl 200 MG DAILY 04/14 900 AC 04/16 PO 05/14 0859 09 Metoprolol Tartrate 25 MG Q8HR 04/10 1400 AC 04/16 PO 05/08 225 2140 Atorvastatin Calcium 40 MG 2100 04/09 2100 AC 04/16 PO 05/09 205 2141 Lactulose 20 GM BID PRN PRN 04/09 1900 AC 04/09 PO 05/09 1859 1933 Miscellaneous 1 EACH ASDIR 04/09 1530 CKD Information SUBQ 05/16 1529 Sterile Water See Dose ASDIR PRN 04/09 1230 AC Insts (1) IRR 05/09 1229 Aspirin 81 MG DAILY 04/09 1015 AC 04/16 PO 05/09 1014 0902 Fluoxetine HCl 10 MG QAM 04/09 09 AC 04/16 PO 05/09 0859 0902 Insulin Human Lispro 0 AC HS 04/09 0730 AC 04/16 SUBQ 05/09 0729 1745 Albuterol/Ipratropium 3 ML RTQ4H 04/09 0000 AC 04/16 NEB 05/09 0000 2146 Tamsulosin HCl 0.8 MG BEDTIME 04/08 2300 AC 04/16 PO 05/08 2259 2140 Acetaminophen 650 MG Q4H PRN PRN 04/08 1800 AC 04/13 PO 05/08 1759 2147 Ondansetron HCl 4 MG Q4H PRN PRN 04/08 1800 AC IV 05/08 1759 Dose Instructions:(1)Sterile Water: DRESSING CHANGE Results: labs reviewed, vital signs stable Diagnosis, Assessment Plan Free Text DxA P NotesFree Text DxA P Notes:ASSESSMENT:* Normocytic, hypochromic anemia. This seems to be an anemia of chronic disease. With iron panel being normal it is less likely to be GI blood loss. Considering his leukopenia I suspect that he may be developing underlying primary bone marrow disease such as MDS.* Recurrent pulmonary embolism based on intermediate probability VQ scan.* History of coronary artery disease, status post 2 coronary artery bypass graftsurgery. PLAN:* Continues to have persistent normocytic, hypochromic anemia and leukopenia. Discussed with the patient that I am concerned that he may be developing any primary bone marrow disease such as MDS. Therefore have recommended a bone marrow aspiration and biopsy for further evaluation. He is agreeable to this plan.* Monitor CBC.* Patient may need to continue with anticoagulation considering benefits more than the risk.* Apparently his lower GI bleed is associated with constipation.* I will continue to follow. 8/9Counts continue to be low.Bone marrow aspiration biopsy ordered, pending.Continue to follow. at 2256 RPT #:[id number] OF REPORTPRProgress [id number]:54:00G.[id number] able for patient ltcmTQVTMLOMXBKVNX1713-57-22E71:56:34 [facility] 2023-04-16 20:47:00 [id number] GxJ8marglce1C3gJRzySebwySPTwC l/SqwxIN/6xyjPJhqT+4roNSqDN0132-73-42G18:47:00 [facility] ([facility])Podiatry Progress NoteREPORT#:[id number] REPORT STATUS: SignedDATE:04/16/23 TIME: 2046 PATIENT: TEVIN NYE UNIT #: [id number]#: [id number] [address] [birth year] AGE: 73 SEX: M ATTEND: Pablo Kumar AUTHOR: Reyhani,Andres X DPM * ALL edits or amendments must be made on the electronic/computer document * SubjectiveChief complaint:left foot ulcerPatient reports: no confusion, no diarrhea, no headacheComments:pt very pleasant. dressing had fallen off of the foot. pt has pain. only takes tylenol. on exam: ulcer dorsal right forefoot with scabbing.dry peeling necrosis.slightly healthier. Objective GeneralVS:Last Documented: Result Date Time Pulse Ox 97 04/16 1912 B/P 117/56 04/16 1912 B/P Mean 76.4 04/16 1912 Temp 36.7 04/16 1912 Pulse 59 04/16 1912 Resp 14 04/16 1912 O2 Delivery Room air 04/16 1622 O2 Flow Rate 2 04/16 1553 FiO2 28 04/10 08 PATIENT WEIGHT: Weight (lb): Weight (oz): Weight (kg): 86.200 Medications:Active Meds + DC'd Last 24 HrsEnoxaparin Sodium (lovENOX) 70 MG 0800,1999 SUBQ Amiodarone HCl (CORDARONE) 200 MG DAILY PO Metoprolol Tartrate (LOPRESSOR) 25 MG Q8HR PO Atorvastatin Calcium (LIPITOR) 40 MG 2100 PO Lactulose (LACTULOSE) 20 GM BID PRN PRN PO Miscellaneous Information (LOVENOX PHARMACY TO DOSE) 1 EACH ASDIR SUBQ (CKD) Sterile Water (WATER FOR IRRIGATION) DRESSING CHANGE ASDIR PRN IRR Aspirin (ASPIRIN) 81 MG DAILY PO Fluoxetine HCl (PROzac) 10 MG QAM PO Insulin Human Lispro (HUMALOG) 0 AC HS SUBQ Albuterol/Ipratropium (DUONEB) 3 ML RTQ4H NEB Tamsulosin HCl (Flomax 0.4 mg) 0.8 MG BEDTIME PO Acetaminophen (TYLENOL) 650 MG Q4H PRN PRN PO Ondansetron HCl (ZOFRAN) 4 MG Q4H PRN PRN IV Dietitian nutrition assessmentThe data set between the solid lines has been imported from the dietitian's assessment. BMI Calculated: 29.8Nutrition related diagnosis: Nutrition diagnosis details: Nutrition problem: Nutrition etiology: Nutrition signs and symptoms: Nutrition prescription: Dietitian name: Assessment completed: Physical ExamWound/incision: Location:bilat foot Site condition: small pinpoint ulcer right foot. ulcer left forefoot dorsal. partial and full thickness. no erythema. no depth.LE vascular pulse assess:Nonpalpable R posterior tibialis, Nonpalpable L posterior tibialis, Nonpalpable R dorsalis pedis, Nonpalpable L dorsalis pedis Diagnosis, Assessment PlanFree Text A P:ulcer left foot.painPVD ulcer is benign...starting to peelcontinue local wound care.no xray found.venous u/s neg NIAS: pvd as expected.rec'd to pt prevalon boots. covering for Dr. Washington at 2048 RPT #:[id number] OF REPORTPRProgress [id number]:47:00G.[id number] able for patient ebphKNHTTYIQKKURTB1071-52-24J55:48:33 [facility] 2023-04-16 16:43:00 [id number]+ [id number]yH VfZ8EPCt7ip2nK2IcVsHAFTQ6h06601-81-78E91:43:00 [facility] ([facility])Cardiology Progress NoteREPORT#:[id number] REPORT STATUS: SignedDATE:04/16/23 TIME: 1643 PATIENT: TEVIN NYE UNIT #: [id number]#: [id number] [address] [birth year] AGE: 73 SEX: M ATTEND: Rojelio Magaña [facility] AUTHOR: Daniela Mari * ALL edits or amendments must be made on the electronic/computer document * SubjectivePatient reports:No: complaints, chest pain, palpitations. Review of SystemsRespiratory:Reports: SOB. Cardiovascular:Denies: chest pain, palpitations. GI:Denies: abdominal pain, nausea, vomiting. Objective GeneralVS/I O:Vital Signs: Date Time Temp Pulse Resp B/P B/P Pulse O2 O2 Flow FiO2 Mean Ox Delivery Rate 04/16 1622 36.6 78 14 152/77 102.1 99 Room air 04/16 1553 94 Nasal 2 cannula 04/16 1221 Nasal 2 cannula 04/16 1101 36.9 76 18 135/71 92.0 93 Room air 04/16 0744 97 Nasal 3 cannula 04/16 0739 36.6 69 18 116/65 82.2 97 Nasal cannula 04/16 0431 36.7 73 16 137/63 87.5 98 Nasal cannula 04/15 2259 36.7 50 16 109/45 66.4 97 Nasal cannula 04/15 2030 Nasal 2 cannula 04/15 2015 100 Room air 04/15 2008 36.7 42 16 127/60 82.3 98 Nasal cannula PATIENT WEIGHT: Weight (lb): Weight (oz): Weight (kg): 86.200 Medications:Active Meds + DC'd Last 24 HrsEnoxaparin Sodium (lovENOX) 70 MG 0800,2000 SUBQ Amiodarone HCl (CORDARONE) 200 MG DAILY PO Metoprolol Tartrate (LOPRESSOR) 25 MG Q8HR PO Atorvastatin Calcium (LIPITOR) 40 MG 2100 PO Lactulose (LACTULOSE) 20 GM BID PRN PRN PO Miscellaneous Information (LOVENOX PHARMACY TO DOSE) 1 EACH ASDIR SUBQ (CKD) Sterile Water (WATER FOR IRRIGATION) DRESSING CHANGE ASDIR PRN IRR Aspirin (ASPIRIN) 81 MG DAILY PO Fluoxetine HCl (PROzac) 10 MG QAM PO Insulin Human Lispro (HUMALOG) 0 AC HS SUBQ Albuterol/Ipratropium (DUONEB) 3 ML RTQ4H NEB Tamsulosin HCl (Flomax 0.4 mg) 0.8 MG BEDTIME PO Acetaminophen (TYLENOL) 650 MG Q4H PRN PRN PO Ondansetron HCl (ZOFRAN) 4 MG Q4H PRN PRN IV Physical ExamGeneral appearance: alert, awakeNeck: non-tender, no JVDCardiovascular: CV assessment: ectopy, regular rate and rhythmRespiratory: decreased breath sounds, no distressAbdomen: soft, non-tender, normal bowel sounds, no distentionGenitourinary: no flank pain, no urinary catheterLower extremity: LE assessment: abnormal pedal pulseMusculoskeletal: normal inspectionNeuro/SALES ASSISTANT: alert, oriented X 3, normal speechSkin: dry, intactUlcer: Type/cause: scab left foot.Psychiatry: normal affect, normal judgment/insight, normal mood ResultsFindings/Data:Laboratory Tests 04/16 04/16 04/16 04/15 1103 0744 0643 2006 Chemistry Sodium (134 - 147 mEq/L) 137 Potassium (3.4 - 5.0 mEq/L) 4.2 Chloride (100 - 108 mEq/L) 107 Carbon Dioxide (21 - 33 mEq/l) 27 Anion Gap (0 - 20) 8 BUN (7 - 18 mg/dL) 24 H Creatinine (0.6 - 1.3 mg/dL) 1.4 H Glomerular Filtr Rate (70 - 80) 53.4 L Glucose (70 - 110 mg/dL) 204 H POC Glucose (70 - 110 MG/DL) 218 H 193 H 173 H Calcium (8.0 - 10.5 mg/dL) 8.0 Laboratory Tests 04/16 0643 Hematology WBC (4.5 - 11.0 x10 3/uL) 3.7 L RBC (4.00 - 5.60 x10 6/uL) 2.50 L Hgb (12.5 - 16.9 g/dL) 7.3 L Hct (37.5 - 50.7 %) 23.5 L MCV (81.0 - 99.0 fL) 94.0 MCH (27.0 - 33.0 pg) 29.2 MCHC (33.0 - 37.0 g/dL) 31.1 L RDW (11.5 - 14.5 %) 17.9 H Plt Count (150 - 400 x10 3/uL) 149 L MPV (7.0 - 9.0 fL) 11.1 H Neut % (Auto) (56.0 - 77.0 %) 75.6 Lymph % (Auto) (14.0 - 32.0 %) 10.2 L [place] % (Auto) (4.8 - 9.0 %) 10.5 H Eos % (Auto) (0.3 - 3.7 %) 2.4 Baso % (Auto) (0.0 - 2.0 %) 0.5 Neut # (Auto) (2.0 - 7.6 x10 3/uL) 2.80 Lymph # (Auto) (1.0 - 3.8 x10 3/uL) 0.38 L [place] # (Auto) (0.1 - 0.8 x10 3/uL) 0.39 Eos # (Auto) (0.0 - 0.2 x10 3/uL) 0.09 Baso # (Auto) (0.0 - 0.2 x10 3/uL) 0.02 Abs Immat Gran (auto) (0.00 - 0.03 x10 3/uL) 0.03 Add Manual Diff NO Immature Gran % (0.0 - 2.0 %) 0.8 Nucleated RBC % (0 - 0 %) 0.0 Nucleated RBCs # (Man) (0.0 - 0.1 x10 3/uL) 0.00 Results: labs reviewed, vital signs reviewed, rhythm personally rev'd Diagnosis, Assessment PlanPlan discussed with: patient, collaborating MD Free Text DxA P NotesFree Text DxA P Notes:73 YO male with MHx of CAD s/p CABG less than 1 month ago, COPD, PE. He presentswith generalized weakness and near syncope. Per family the patient was progressively getting weak since being discharged from the hospital post CABG. Yesterday he was noticed to be really weak. The patient remarked he felt he was going to pass out. Other symptoms reported includes SOB, anorexia, LE edema, wound on the dorsum of the right foot. Creatinine elevated at 3, it was 1.6 when he was discharged few weeks ago. D-dimer elevated 1496. He has abnormal pedal pulses. 1. Dyspnea and presyncope likely d/t PE * Hx of PE, elevated D-dimer* Unable to CTA due to elevated creatinine* echocardiogram preserved LVEF* VQ suggestive of pulmonary embolism* On Lovenox full dose, transition to AC anytime 2. CAD s/p CABG* stop Plavix, continue baby ASA plus AC of choice by pulmonology* continue BB and statin 3. JERAMY on CKD 2/2 volume depletion* creatinine trending down 3->2.9->2.4->1.9->1.3->1.4* resume lisinopril when ok with nephrology* nephrology following 4. Left foot ulcer/abnormal arterial doppler* looks like the left foot wound is healing. In the event the left foot woundfailed to heal then we will consider peripheral angiogram outpatient* podiatry following - wound benign per podiatry 5. Hx of COPD* pulmonary following 6. Acute Pulmonary embolism - recurrent* AC per pulmonology* LE venous doppler no DVT 7. PVCs* Multiple PVCs * Add amiodarone 200 mg daily and continue metoprolol * Replace low magnesium Overall doing well.Rehab consultedOkay to transfer to rehab once bed available. MDM by Dr. Haynes. at 1645 at 1443 RPT #:[id number] OF REPORTPRProgress [id number]:43:00G.[id number] able for patient vpcdAAEWXWHDIFVMEP2597-77-18U38:46:21 [facility] 2023-04-16 14:07:00 [id number] ioQPkxK+zPCOSdpfoW4i5Ia9qFK4224-26-22Q15:07:00 [facility] ([facility])Nephrology Progress NoteREPORT#:[id number] REPORT STATUS: SignedDATE:04/16/23 TIME: 1407 PATIENT: TEVIN NYE UNIT #: [id number]#: [id number] [address] [birth year] AGE: 73 SEX: M ATTEND: Pablo Kumar Arnold MDADM AUTHOR: Glendy Paz MD * ALL edits or amendments must be made on the electronic/computer document * SubjectiveChief complaint:Follow-up of acute renal failure, ATN/AINComments:Laying flat in bed, but complains of shortness of breath on exertion Objective GeneralVS/I O:Vital Signs: Date Time Temp Pulse Resp B/P B/P Pulse O2 O2 Flow FiO2 Mean Ox Delivery Rate 04/16 1221 Nasal 2 cannula 04/16 1101 98.4 76 18 135/71 92.0 93 Room air 04/16 0744 97 Nasal 3 cannula 04/16 0739 97.9 69 18 116/65 82.2 97 Nasal cannula 04/16 0431 98.1 73 16 137/63 87.5 98 Nasal cannula 04/15 2259 98.1 50 16 109/45 66.4 97 Nasal cannula 04/15 2030 Nasal 2 cannula 04/15 2015 100 Room air 04/15 2008 98.1 42 16 127/60 82.3 98 Nasal cannula 04/15 1534 98.6 77 17 142/56 84.7 93 PATIENT WEIGHT: Weight (lb): Weight (oz): Weight (kg): 86.200 MedicationsActive Meds + DC'd Last 24 HrsEnoxaparin Sodium (lovENOX) 70 MG 0800,2000 SUBQ Amiodarone HCl (CORDARONE) 200 MG DAILY PO Metoprolol Tartrate (LOPRESSOR) 25 MG Q8HR PO Atorvastatin Calcium (LIPITOR) 40 MG 2100 PO Lactulose (LACTULOSE) 20 GM BID PRN PRN PO Miscellaneous Information (LOVENOX PHARMACY TO DOSE) 1 EACH ASDIR SUBQ (CKD) Sterile Water (WATER FOR IRRIGATION) DRESSING CHANGE ASDIR PRN IRR Aspirin (ASPIRIN) 81 MG DAILY PO Fluoxetine HCl (PROzac) 10 MG QAM PO Insulin Human Lispro (HUMALOG) 0 AC HS SUBQ Albuterol/Ipratropium (DUONEB) 3 ML RTQ4H NEB Tamsulosin HCl (Flomax 0.4 mg) 0.8 MG BEDTIME PO Acetaminophen (TYLENOL) 650 MG Q4H PRN PRN PO Ondansetron HCl (ZOFRAN) 4 MG Q4H PRN PRN IV Physical ExamGeneral appearance: alert, awake, orientedHead/eyes: atraumatic, normocephalicENT: moist mucous membranesNeck: supple/no meningismus, no JVDCardiovascular: normal heart sounds, no rubRespiratory: aerating well, clear to auscultation, no distressGenitourinary: no bladder distentionExtremities: no edemaNeuro/SALES ASSISTANT: alert, oriented X 3Ulcer: Type/cause: scab left foot. ResultsFindings/Data:Laboratory Tests 04/16 04/16 04/16 04/15 04/15 1103 0744 0643 2006 1533 Chemistry Sodium (134 - 147 mEq/L) 137 Potassium (3.4 - 5.0 mEq/L) 4.2 Chloride (100 - 108 mEq/L) 107 Carbon Dioxide (21 - 33 mEq/l) 27 Anion Gap (0 - 20) 8 BUN (7 - 18 mg/dL) 24 H Creatinine (0.6 - 1.3 mg/dL) 1.4 H Glomerular Filtr Rate (70 - 80) 53.4 L Glucose (70 - 110 mg/dL) 204 H POC Glucose (70 - 110 MG/DL) 218 H 193 H 173 H 184 H Calcium (8.0 - 10.5 mg/dL) 8.0 Laboratory Tests 04/16 0643 Hematology WBC (4.5 - 11.0 x10 3/uL) 3.7 L RBC (4.00 - 5.60 x10 6/uL) 2.50 L Hgb (12.5 - 16.9 g/dL) 7.3 L Hct (37.5 - 50.7 %) 23.5 L MCV (81.0 - 99.0 fL) 94.0 MCH (27.0 - 33.0 pg) 29.2 MCHC (33.0 - 37.0 g/dL) 31.1 L RDW (11.5 - 14.5 %) 17.9 H Plt Count (150 - 400 x10 3/uL) 149 L MPV (7.0 - 9.0 fL) 11.1 H Neut % (Auto) (56.0 - 77.0 %) 75.6 Lymph % (Auto) (14.0 - 32.0 %) 10.2 L [place] % (Auto) (4.8 - 9.0 %) 10.5 H Eos % (Auto) (0.3 - 3.7 %) 2.4 Baso % (Auto) (0.0 - 2.0 %) 0.5 Neut # (Auto) (2.0 - 7.6 x10 3/uL) 2.80 Lymph # (Auto) (1.0 - 3.8 x10 3/uL) 0.38 L [place] # (Auto) (0.1 - 0.8 x10 3/uL) 0.39 Eos # (Auto) (0.0 - 0.2 x10 3/uL) 0.09 Baso # (Auto) (0.0 - 0.2 x10 3/uL) 0.02 Abs Immat Gran (auto) (0.00 - 0.03 x10 3/uL) 0.03 Add Manual Diff NO Immature Gran % (0.0 - 2.0 %) 0.8 Nucleated RBC % (0 - 0 %) 0.0 Nucleated RBCs # (Man) (0.0 - 0.1 x10 3/uL) 0.00 Diagnosis, Assessment PlanFree Text A P:Assessment/plan:1. Acute renal failure most likely secondary to volume depletion, overdiuresis and ATN/AIN with Bactrim and lisinopril on board. Cr further better 2.9-2.4-1.9> 1.2 >1.3>1.4, stable today, renal sono without hydronephrosis. Likely has underlying CKD. 2. Coronary artery disease: Status post CABG, continue home medications 3. COPD: Symptomatic treatment 4. History of prostate cancer, s/p radiation 2021 5. Anemia: Requested stool occult blood-not sent yet, and iron studies reviewed-ok, transfuse as needed for hemoglobin less than 7. Hematology following, bone marrow biopsy tomorrow pending rehab. stable from nephrology for discharge. at 1624 RPT #:[id number] OF REPORTPRProgress [id number]:07:00G.[id number] able for patient dhteOTWWTMNORCGZXZ4589-36-35N68:25:14 [facility] 2023-04-16 13:37:00 [id number] xPkWck8U5O61Toh01WLpFXZJUvksJ uqBf9ruxso7CbBHP61m2Fb6cguV4423-90-33B60:37:00 [facility] ([facility])Pulmonology Progress NoteREPORT#:[id number] REPORT STATUS: SignedDATE:04/16/23 TIME: 1337 PATIENT: TEVIN NYE UNIT #: [id number]#: [id number] [address] [birth year] AGE: 73 SEX: M ATTEND: Pablo Kumar MDADM AUTHOR: Sharmila Alan * ALL edits or amendments must be made on the electronic/computer document * SubjectiveComments:On NC, comfortable, no new complaints ROSAll systems rev neg: except as marked Objective GeneralVS/I O:Last Documented: Result Date Time O2 Delivery Nasal cannula 04/16 1221 O2 Flow Rate 2 04/16 1221 Pulse Ox 93 04/16 1101 B/P 135/71 04/16 1101 B/P Mean 92.0 04/16 1101 Temp 36.9 04/16 1101 Pulse 76 04/16 1101 Resp 18 04/16 1101 FiO2 28 / 0800 PATIENT WEIGHT: Weight (lb): Weight (oz): Weight (kg): 86.200 Medications:Active Meds + DC'd Last 24 HrsEnoxaparin Sodium (lovENOX) 70 MG 0800,1999 SUBQ Amiodarone HCl (CORDARONE) 200 MG DAILY PO Metoprolol Tartrate (LOPRESSOR) 25 MG Q8HR PO Atorvastatin Calcium (LIPITOR) 40 MG 2100 PO Lactulose (LACTULOSE) 20 GM BID PRN PRN PO Miscellaneous Information (LOVENOX PHARMACY TO DOSE) 1 EACH ASDIR SUBQ (CKD) Sterile Water (WATER FOR IRRIGATION) DRESSING CHANGE ASDIR PRN IRR Aspirin (ASPIRIN) 81 MG DAILY PO Fluoxetine HCl (PROzac) 10 MG QAM PO Insulin Human Lispro (HUMALOG) 0 AC HS SUBQ Albuterol/Ipratropium (DUONEB) 3 ML RTQ4H NEB Tamsulosin HCl (Flomax 0.4 mg) 0.8 MG BEDTIME PO Acetaminophen (TYLENOL) 650 MG Q4H PRN PRN PO Ondansetron HCl (ZOFRAN) 4 MG Q4H PRN PRN IV Physical ExamGeneral appearance: alert, awake, oriented, no acute distressHead/eyes: atraumatic, normocephalic, PERRL, EOMINeck: no JVD, no lymphadenopathyCardiovascular: normal heart sounds, normal S1/S2, regular rate rhythmRespiratory/chest: decreased breath sounds, on oxygen, aerating well, symmetric expansionAbdomen: soft, no guardingExtremities: moves all, no clubbing, no cyanosis, no edemaNeuro/SALES ASSISTANT: CNII-XII intactSkin: dry, intactUlcer: Type/cause: scab left foot.Psychiatry: normal affect, normal judgment/insight, normal mood ResultsFindings/Data:Laboratory Tests 04/16/23 0643:[Embedded Image Not Available]Laboratory Tests 04/16 04/16 04/16 04/15 04/15 1103 0744 0643 2006 1533 Chemistry Sodium (134 - 147 mEq/L) 137 Potassium (3.4 - 5.0 mEq/L) 4.2 Chloride (100 - 108 mEq/L) 107 Carbon Dioxide (21 - 33 mEq/l) 27 Anion Gap (0 - 20) 8 BUN (7 - 18 mg/dL) 24 H Creatinine (0.6 - 1.3 mg/dL) 1.4 H Glomerular Filtr Rate (70 - 80) 53.4 L Glucose (70 - 110 mg/dL) 204 H POC Glucose (70 - 110 MG/DL) 218 H 193 H 173 H 184 H Calcium (8.0 - 10.5 mg/dL) 8.0 Laboratory Tests 04/16 0643 Hematology WBC (4.5 - 11.0 x10 3/uL) 3.7 L RBC (4.00 - 5.60 x10 6/uL) 2.50 L Hgb (12.5 - 16.9 g/dL) 7.3 L Hct (37.5 - 50.7 %) 23.5 L MCV (81.0 - 99.0 fL) 94.0 MCH (27.0 - 33.0 pg) 29.2 MCHC (33.0 - 37.0 g/dL) 31.1 L RDW (11.5 - 14.5 %) 17.9 H Plt Count (150 - 400 x10 3/uL) 149 L MPV (7.0 - 9.0 fL) 11.1 H Neut % (Auto) (56.0 - 77.0 %) 75.6 Lymph % (Auto) (14.0 - 32.0 %) 10.2 L [place] % (Auto) (4.8 - 9.0 %) 10.5 H Eos % (Auto) (0.3 - 3.7 %) 2.4 Baso % (Auto) (0.0 - 2.0 %) 0.5 Neut # (Auto) (2.0 - 7.6 x10 3/uL) 2.80 Lymph # (Auto) (1.0 - 3.8 x10 3/uL) 0.38 L [place] # (Auto) (0.1 - 0.8 x10 3/uL) 0.39 Eos # (Auto) (0.0 - 0.2 x10 3/uL) 0.09 Baso # (Auto) (0.0 - 0.2 x10 3/uL) 0.02 Abs Immat Gran (auto) (0.00 - 0.03 x10 3/uL) 0.03 Add Manual Diff NO Immature Gran % (0.0 - 2.0 %) 0.8 Nucleated RBC % (0 - 0 %) 0.0 Nucleated RBCs # (Man) (0.0 - 0.1 x10 3/uL) 0.00 Diagnosis, Assessment PlanFree Text A P:Acute on chronic hypoxemic respiratory failure supplemental O2 as needed and wean as tolerated Pulmonary embolism Initially diagnosed in November 2022 at outside hospital; was on Eliquis from diagnosis through February. CTA chest 03/03/2023 was negative for pulmonary embolism. Patient was discharged home 03/13/2023 and told to discontinue taking Eliquis.-D-dimer 1496. -VQ scan with intermediate probability. 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 Check bilateral lower extremity Dopplers -> neg-Renally dose lovenox @ 1mg/kg once daily -d/w cardio. will ultimately AC with eliquis ASA. Off plavix. Continue lovenoxfor now. COPD No exacerbation. On Combivent and ipratropium nebs at home.-May need repeat pulmonary function test outpatient. Follows with the OR but looking for civilian patient registration specialist due to issues with the [facility] RLL nodule CT chest 03/03/2023. 1.5 x 0.8 cm nodular opacity in RLL needs follow-up in 3 months CAD / PAD S/p CABG 03/04/2023 Cardiothoracic surgery following Pending echo- will need periph angio when cr improved JERAMY/CKD Nephrology consult Strict I O. 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 Await BMB per Heme PT/OTRehab eval at 1338 RPT #:[id number] OF REPORTPRProgress [id number]:37:00G.[id number] able for patient hlqmXSPUORBLZPPGCQ8983-43-57S83:39:18 [facility] 2023-04-16 11:12:00 [id number] IDlsZNGkLK+vwIMoL21KTOlAiXl8p QOzrRPZZlca6+Eu8YGjd/BqEbMQ0586-26-55K51:12:00 [facility])Gastroenterology Progress NoteREPORT#:[id number] REPORT STATUS: SignedDATE:04/16/23 TIME: 1112 PATIENT: TEVIN NYE UNIT #: [id number]#: [id number] [address] [birth year] AGE: 73 SEX: M ATTEND: Pablo Kumar [facility] AUTHOR: Clint Roman * ALL edits or amendments must be made on the electronic/computer document * Clint Roman 04/16/23 1112:SubjectiveComments:no nausea, vomiting, or abdominal pain. No overt gi bleeding Review of SystemsAdditional notes:10 point ros neg except hpi Objective GeneralVS/I O:Last Documented: Result Date Time Pulse Ox 93 04/16 1101 B/P 135/71 04/16 1101 B/P Mean 92.0 04/16 1101 O2 Delivery Room air 04/16 110 Temp 98.4 04/16 1101 Pulse 76 04/16 1101 Resp 18 04/16 1101 O2 Flow Rate 3 04/16 0744 FiO2 28 04/10 0800 PATIENT WEIGHT: Weight (lb): Weight (oz): Weight (kg): 86.200 Medications:Active Meds + DC'd Last 24 HrsEnoxaparin Sodium (lovENOX) 70 MG 0800,1999 SUBQ Amiodarone HCl (CORDARONE) 200 MG DAILY PO Metoprolol Tartrate (LOPRESSOR) 25 MG Q8HR PO Atorvastatin Calcium (LIPITOR) 40 MG 2100 PO Lactulose (LACTULOSE) 20 GM BID PRN PRN PO Miscellaneous Information (LOVENOX PHARMACY TO DOSE) 1 EACH ASDIR SUBQ (CKD) Sterile Water (WATER FOR IRRIGATION) DRESSING CHANGE ASDIR PRN IRR Aspirin (ASPIRIN) 81 MG DAILY PO Fluoxetine HCl (PROzac) 10 MG QAM PO Insulin Human Lispro (HUMALOG) 0 AC HS SUBQ Albuterol/Ipratropium (DUONEB) 3 ML RTQ4H NEB Tamsulosin HCl (Flomax 0.4 mg) 0.8 MG BEDTIME PO Acetaminophen (TYLENOL) 650 MG Q4H PRN PRN PO Ondansetron HCl (ZOFRAN) 4 MG Q4H PRN PRN IV Physical ExamGeneral appearance: alert, awakeHEENT: atraumatic, normocephalicNeck: full range of motionCardiovascular: normal heart sounds, regular rate rhythmRespiratory: no distress, on oxygenAbdomen: non-tender, normal bowel sounds, soft, no distentionExtremities: decreased range of motionNeuro/SALES ASSISTANT: alert, oriented X 3Skin: dry, intactUlcer: Type/cause: scab left foot.Psychiatry: normal affect, normal judgment/insight ResultsFindings/Data:Laboratory Tests 04/16/23 0643:[Embedded Image Not Available]Laboratory Tests 04/16 04/16 04/15 04/15 0744 0643 2006 1533 Chemistry Sodium (134 - 147 mEq/L) 137 Potassium (3.4 - 5.0 mEq/L) 4.2 Chloride (100 - 108 mEq/L) 107 Carbon Dioxide (21 - 33 mEq/l) 27 Anion Gap (0 - 20) 8 BUN (7 - 18 mg/dL) 24 H Creatinine (0.6 - 1.3 mg/dL) 1.4 H Glomerular Filtr Rate (70 - 80) 53.4 L Glucose (70 - 110 mg/dL) 204 H POC Glucose (70 - 110 MG/DL) 193 H 173 H 184 H Calcium (8.0 - 10.5 mg/dL) 8.0 Laboratory Tests 04/16 0643 Hematology WBC (4.5 - 11.0 x10 3/uL) 3.7 L RBC (4.00 - 5.60 x10 6/uL) 2.50 L Hgb (12.5 - 16.9 g/dL) 7.3 L Hct (37.5 - 50.7 %) 23.5 L MCV (81.0 - 99.0 fL) 94.0 MCH (27.0 - 33.0 pg) 29.2 MCHC (33.0 - 37.0 g/dL) 31.1 L RDW (11.5 - 14.5 %) 17.9 H Plt Count (150 - 400 x10 3/uL) 149 L MPV (7.0 - 9.0 fL) 11.1 H Neut % (Auto) (56.0 - 77.0 %) 75.6 Lymph % (Auto) (14.0 - 32.0 %) 10.2 L [place] % (Auto) (4.8 - 9.0 %) 10.5 H Eos % (Auto) (0.3 - 3.7 %) 2.4 Baso % (Auto) (0.0 - 2.0 %) 0.5 Neut # (Auto) (2.0 - 7.6 x10 3/uL) 2.80 Lymph # (Auto) (1.0 - 3.8 x10 3/uL) 0.38 L [place] # (Auto) (0.1 - 0.8 x10 3/uL) 0.39 Eos # (Auto) (0.0 - 0.2 x10 3/uL) 0.09 Baso # (Auto) (0.0 - 0.2 x10 3/uL) 0.02 Abs Immat Gran (auto) (0.00 - 0.03 x10 3/uL) 0.03 Add Manual Diff NO Immature Gran % (0.0 - 2.0 %) 0.8 Nucleated RBC % (0 - 0 %) 0.0 Nucleated RBCs # (Man) (0.0 - 0.1 x10 3/uL) 0.00 Diagnosis, Assessment PlanFree Text A P:Assessment dyspnea on exertionPE hx of prostate cancer, s/p radiation therapy anemia rectal bleeding, mild, resolved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leukopenia pancytopenia Plan:- monitor h/h, transfuse as needed- monitor for further bleeding - diet as tolerated - agree with pulm recs, ok from gi standpoint to eventually transition to eliquis when ok with hematology, benefits > risks- hematology following, appreciate input, plans for bone marrow biopsy Roberto Galeano 04/16/23 1653:Attestations Physician AttestationAgree w/findings plan:Agree with the findings and plan as documented by Abel PRITCHARD; at 1450 at 1653 RPT #:[id number] OF REPORTPRProgress [id number]:12:00G.[id number] able for patient vmleOVFNVVRTTHXRRU0530-86-76Y60:50:58 [facility] 2023-04-16 10:13:00 [id number] i+pzizzgMJ+zgyIXLInoeQ20JlQMB 5lAXms+pV5RIlWxz4+C5Qt1Qbka6973-30-74B56:13:00 [facility] ([facility])Hospitalist Progress NoteREPORT#:[id number] REPORT STATUS: SignedDATE:04/16/23 TIME: 1013 PATIENT: TEVIN NYE UNIT #: [id number]#: [id number] [address] [birth year] AGE: 73 SEX: M ATTEND: Pablo Kumar AUTHOR: Pbalo Kumar MD * ALL edits or amendments must be made on the electronic/computer document * SubjectiveChief complaint:no sob. no cp. ambulating. awaitng BM bx. Objective GeneralVS/I O:Vital Signs: Date Time Temp Pulse Resp B/P B/P Pulse O2 O2 Flow FiO2 Mean Ox Delivery Rate 04/16 0739 97.9 69 18 116/65 82.2 97 Nasal cannula 04/16 0431 98.1 73 16 137/63 87.5 98 Nasal cannula 04/15 2259 98.1 50 16 109/45 66.4 97 Nasal cannula 04/15 2030 Nasal 2 cannula 04/15 2015 100 Room air 04/15 2008 98.1 42 16 127/60 82.3 98 Nasal cannula 04/15 1534 98.6 77 17 142/56 84.7 93 04/15 1047 98.2 64 17 127/69 88.5 99 PATIENT WEIGHT: Weight (lb): Weight (oz): Weight (kg): 86.200 Physical ExamGeneral appearance: alert, awakeHead/Eyes: atraumatic, clear cornea, EOMINeck: supple/no meningismusCardiovascular: normal heart sounds, regular rate rhythm, no gallop, no murmur, no rubRespiratory: aerating well, clear to auscultation, symmetric expansionAbdomen: non-tender, normal bowel sounds, soft, no distentionExtremities: no clubbing, no cyanosis, no edemaMusculoskeletal: normal inspection, painless range of motionNeuro/SALES ASSISTANT: alert, oriented X 3, CNII-XII intactSkin: dry, intactUlcer: Type/cause: scab left foot. ResultsRadiology data:Laboratory Tests 04/16/23 0643:[Embedded Image Not Available] 04/15/23 0615:[Embedded Image Not Available] Current Medications Sig/Yas Start time Last Medication Dose Route Stop Time Status Admin Enoxaparin Sodium 70 MG 799,04/15 AC 04/16 SUBQ 05/15 195 09 Furosemide 20 MG ONCE ONE 04/15 1100 DC 04/15 IV 04/15 1101 1229 Amiodarone HCl 200 MG DAILY 04/14 900 AC 04/16 PO 05/14 0859 0902 Metoprolol Tartrate 25 MG Q8HR 04/10 1400 AC 04/16 PO 05/08 225 0510 Atorvastatin Calcium 40 MG 2100 04/09 2100 AC 04/15 PO 05/09 205 210 Lactulose 20 GM BID PRN PRN 04/09 1900 AC 04/09 PO 05/09 1859 1933 Miscellaneous 1 EACH ASDIR 04/09 1530 CKD Information SUBQ 04/16 1529 Sterile Water See Dose ASDIR PRN 04/09 1230 AC Insts (1) IRR 05/09 1229 Aspirin 81 MG DAILY 04/09 1015 AC 04/16 PO 05/09 1014 0902 Fluoxetine HCl 10 MG QAM 04/09 0900 AC 04/16 PO 05/09 0859 0902 Insulin Human Lispro 0 AC HS 04/09 0730 AC 04/16 SUBQ 05/09 0729 0902 Albuterol/Ipratropium 3 ML RTQ4H 04/09 0000 AC 04/16 NEB 05/09 0000 0744 Tamsulosin HCl 0.8 MG BEDTIME 04/08 2300 AC 04/15 PO 05/08 225 210 Acetaminophen 650 MG Q4H PRN PRN 04/08 1800 AC 04/13 PO 05/08 1759 2147 Ondansetron HCl 4 MG Q4H PRN PRN 04/08 1800 AC IV 05/08 175 Dose Instructions:(1)Sterile Water: DRESSING CHANGE Laboratory Tests: 04/16 04/16 04/15 04/15 04/15 0744 0643 2006 1533 1046Chemistry Sodium (134 - 147 mEq/L) 137 Potassium (3.4 - 5.0 mEq/L) 4.2 Chloride (100 - 108 mEq/L) 107 Carbon Dioxide (21 - 33 mEq/l) 27 Anion Gap (0 - 20) 8 BUN (7 - 18 mg/dL) 24 H Creatinine (0.6 - 1.3 mg/dL) 1.4 H Glomerular Filtr Rate (70 - 80) 53.4 L Glucose (70 - 110 mg/dL) 204 H POC Glucose (70 - 110 MG/DL) 193 H 173 H 184 H 202 H Calcium (8.0 - 10.5 mg/dL) 8.0Hematology WBC (4.5 - 11.0 x10 3/uL) 3.7 L RBC (4.00 - 5.60 x10 6/uL) 2.50 L Hgb (12.5 - 16.9 g/dL) 7.3 L Hct (37.5 - 50.7 %) 23.5 L MCV (81.0 - 99.0 fL) 94.0 MCH (27.0 - 33.0 pg) 29.2 MCHC (33.0 - 37.0 g/dL) 31.1 L RDW (11.5 - 14.5 %) 17.9 H Plt Count (150 - 400 x10 3/uL) 149 L MPV (7.0 - 9.0 fL) 11.1 H Neut % (Auto) (56.0 - 77.0 %) 75.6 Lymph % (Auto) (14.0 - 32.0 %) 10.2 L [place] % (Auto) (4.8 - 9.0 %) 10.5 H Eos % (Auto) (0.3 - 3.7 %) 2.4 Baso % (Auto) (0.0 - 2.0 %) 0.5 Neut # (Auto) (2.0 - 7.6 x10 3/uL) 2.80 Lymph # (Auto) (1.0 - 3.8 x10 3/uL) 0.38 L [place] # (Auto) (0.1 - 0.8 x10 3/uL) 0.39 Eos # (Auto) (0.0 - 0.2 x10 3/uL) 0.09 Baso # (Auto) (0.0 - 0.2 x10 3/uL) 0.02 Abs Immat Gran (auto) (0.00 - 0.03 0.03x10 3/uL) Add Manual Diff NO Immature Gran % (0.0 - 2.0 %) 0.8 Nucleated RBC % (0 - 0 %) 0.0 Nucleated RBCs # (Man) (0.0 - 0.1 0.00x10 3/uL) Diagnosis, Assessment Plan Free Text DxA P NotesFree text DxA P notes:SOBcardiology and pulmonary seenon 2.5 to 3 liters of oxygen per n/cecho wnlwill give lasix twenty mg one time dosecheck chest xray04/14- CXR on 04/13 was negative. pulmonary following. elevated D-dimerV-Q scan with intermediate probabilityon therapeutic lovenox renally dosed for now8- pulmonary following...worsening anemia, but guiaiac negaive anemia (pancytopenia)8/- hgb dropped to 8 today (9.7 two days ago). ask heme to see. h/o cancer. guiaiac negative. 8/8- hgb stable at 8. 8/9- hgb 7.3...bone marrow bx planned today? JERAMY with CKDrenal seenon IVFcreat improving COPDon home oxygen h/o CADs/p CABG X4 on 03/04/2023TS consulted and seen DMaccuchecks and SSI prncheck A1CBG controlled HTNbp controlledresumed home meds HLDon statinstable Prostate cancers/p XRT Debilityper PT/OT could be a post acute rehab candidate consulted rehabrecommend IRF check labs in [facility]/up wiht DR. Rinaldi 04/14- awiaitng tranfer to rehab. folow h/h. ask heme to see.8/8- h/h stable. cleared by GI to change lovenox to Eliquis if pulmonary wishes. 8/9- hgb 7.3. Bone marrow bx planned. at 1014 RPT #:[id number] OF REPORTPRProgress [id number]:13:00G.[id number] able for patient [id number]:15:18 [facility] 2023-04-16 09:22:00 [id number] mWPjnBBLv+[id number]/[id number]:22:00 [facility] NoteREPORT#:[id number] REPORT STATUS: SignedDATE:04/16/23 TIME: 921 PATIENT: TEVIN NYE UNIT #: [id number]#: [id number] ROOM/BED: 5517-1DOB: [birth year] AGE: 73 SEX: M ATTEND: StacyPablo Arnold MDADM AUTHOR: Nicolasa Galeano PA-C * ALL edits or amendments must be made on the electronic/computer document * SubjectiveChief complaint:Pt seen and examined. No acute distress. No complaints. Going for a bone marrow bx tomorrow. Objective GeneralVS:Vital Signs: Date Time Temp Pulse Resp B/P B/P Pulse O2 O2 Flow FiO2 Mean Ox Delivery Rate 04/16 0739 97.9 69 18 116/65 82.2 97 Nasal cannula 04/16 0431 98.1 73 16 137/63 87.5 98 Nasal cannula 04/15 2259 98.1 50 16 109/45 66.4 97 Nasal cannula 04/15 2030 Nasal 2 cannula 04/15 2015 100 Room air 04/15 2008 98.1 42 16 127/60 82.3 98 Nasal cannula 04/15 1534 98.6 77 17 142/56 84.7 93 04/15 1047 98.2 64 17 127/69 88.5 99 PATIENT WEIGHT: Weight (lb): Weight (oz): Weight (kg): 86.200 Medications:Active Meds + DC'd Last 24 HrsEnoxaparin Sodium (lovENOX) 70 MG 0800,2000 SUBQ Furosemide (LASIX 20MG INJ) 20 MG ONCE ONE IV (DC) Amiodarone HCl (CORDARONE) 200 MG DAILY PO Metoprolol Tartrate (LOPRESSOR) 25 MG Q8HR PO Atorvastatin Calcium (LIPITOR) 40 MG 2100 PO Lactulose (LACTULOSE) 20 GM BID PRN PRN PO Miscellaneous Information (LOVENOX PHARMACY TO DOSE) 1 EACH ASDIR SUBQ (CKD) Sterile Water (WATER FOR IRRIGATION) DRESSING CHANGE ASDIR PRN IRR Aspirin (ASPIRIN) 81 MG DAILY PO Fluoxetine HCl (PROzac) 10 MG QAM PO Insulin Human Lispro (HUMALOG) 0 AC HS SUBQ Albuterol/Ipratropium (DUONEB) 3 ML RTQ4H NEB Tamsulosin HCl (Flomax 0.4 mg) 0.8 MG BEDTIME PO Acetaminophen (TYLENOL) 650 MG Q4H PRN PRN PO Ondansetron HCl (ZOFRAN) 4 MG Q4H PRN PRN IV Functional ProgressFunctional progress: GAIT TRAINING 1. Medical Record reviewed. 2. Explanation of procedure, desired effects, and precautions reviewed with patient and/or caregiver. 3. Patient positioned for comfort, dressed for privacy, footwear utilized. 4. Exposed skin inspected before and after procedure. 5. Patient checked for lines, tubes, dressing, incisions, and other medical devices for safe mobility and/or positioning. SUPERVISION: 1. One on one supervision with cueing and assistance provided to ensure proper performance of all activities. Yes Precautions: Fall Pre- Gait Mobility Y/N: Yes Safety addressed through use of: Gait Belt Verbal Cues Tactile Cues Extra Personnel Gait Device RW Weightbearing: No Restriction Ambulation Distance: 260'x1 240'x1 Progression: Forward Lateral, Right Lateral, Left Assistance Level: Supervision or Set-up Gait Deviations: SHORT STEPS FLEXED FORWARD [place] Gait Left Effects of Treatment: [place] of care decreased Circulation improved Gait quality improved Function Improved Post TX Precautions: FALL WC TO FOLLOW Review Plan of Care: Yes PT charges: Gait Training [id number] Gait Cmt: Pt tolerated tx well demo progress in gait distance. Pt SOB w/ amb on 2L O2 however SpO2 94%. Pt left sitting EOB w/ call light all needs within reach. If this is the patient's last treatment, this entry Start Time: 942 Stop Time: 1014 Treatment Time: (minutes) 0:31 Completed by: Kali Charles Conference/Supervising PT: Yes Supervising Therapist: Roya Henderson BED MOBILITY: Yes Supine to Sit: Independent TRANSFERS: Yes Sit to/from stand: Supervision or Set-up CARDIO-RESPIRATORY IMPAIRMENT Items determined to be OUTSIDE the Functional Limits are as follows: . Mobility: How much help from another person does the patient currently need: Moving from lying on your back to sitting on the side of a flat bed . Physical Therapy: Plan of Care PT Problem List: 1 Impaired Functional Mobil 4 Impaired Strength/ROM 3 Impaired Balance 5 Impaired Activity Xavier. 8 Impaired Gait Short Term Goals TARGET DATE GOAL MET 1: PATIENT TO PERFORM BED <> CHAIR MOD I. : 04/16/23 ST GL1: N 2: PATIENT TO WALK 200 FEET USING RW WITH : 04/16/23 GL2: Y SUPERVISION. [employer] Operator Goals TARGET DATE GOAL MET Physical ExamGeneral appearance: alert, awakePsych: alert, normal affectNeck: non-tender, suppleCardiovascular: regular rate rhythm, S1/A9Jbdckfpztjd: diminished breath sounds, aerating wellAbdomen: bowel sounds present, soft, non-tenderUlcer: Type/cause: scab left foot.Musculoskeletal - general: Musculoskeletal - general: normal muscle massNeuro/SALES ASSISTANT: alert, oriented X 3, CNII-XII intact, normal speech, no sensory deficits ResultsFindings/Data:Laboratory Tests: 04/16 04/16 04/15 04/15 04/15 0744 0643 2006 1533 1046Chemistry Sodium (134 - 147 mEq/L) 137 Potassium (3.4 - 5.0 mEq/L) 4.2 Chloride (100 - 108 mEq/L) 107 Carbon Dioxide (21 - 33 mEq/l) 27 Anion Gap (0 - 20) 8 BUN (7 - 18 mg/dL) 24 H Creatinine (0.6 - 1.3 mg/dL) 1.4 H Glomerular Filtr Rate (70 - 80) 53.4 L Glucose (70 - 110 mg/dL) 204 H POC Glucose (70 - 110 MG/DL) 193 H 173 H 184 H 202 H Calcium (8.0 - 10.5 mg/dL) 8.0Hematology WBC (4.5 - 11.0 x10 3/uL) 3.7 L RBC (4.00 - 5.60 x10 6/uL) 2.50 L Hgb (12.5 - 16.9 g/dL) 7.3 L Hct (37.5 - 50.7 %) 23.5 L MCV (81.0 - 99.0 fL) 94.0 MCH (27.0 - 33.0 pg) 29.2 MCHC (33.0 - 37.0 g/dL) 31.1 L RDW (11.5 - 14.5 %) 17.9 H Plt Count (150 - 400 x10 3/uL) 149 L MPV (7.0 - 9.0 fL) 11.1 H Neut % (Auto) (56.0 - 77.0 %) 75.6 Lymph % (Auto) (14.0 - 32.0 %) 10.2 L [place] % (Auto) (4.8 - 9.0 %) 10.5 H Eos % (Auto) (0.3 - 3.7 %) 2.4 Baso % (Auto) (0.0 - 2.0 %) 0.5 Neut # (Auto) (2.0 - 7.6 x10 3/uL) 2.80 Lymph # (Auto) (1.0 - 3.8 x10 3/uL) 0.38 L [place] # (Auto) (0.1 - 0.8 x10 3/uL) 0.39 Eos # (Auto) (0.0 - 0.2 x10 3/uL) 0.09 Baso # (Auto) (0.0 - 0.2 x10 3/uL) 0.02 Abs Immat Gran (auto) (0.00 - 0.03 0.03x10 3/uL) Add Manual Diff NO Immature Gran % (0.0 - 2.0 %) 0.8 Nucleated RBC % (0 - 0 %) 0.0 Nucleated RBCs # (Man) (0.0 - 0.1 0.00x10 3/uL) Diagnosis, Assessment PlanFree Text A P:73 year old male with acute on chronic respiratory failure, elevated D-dimer, JERAMY on CKD, recent CABG and weakness. Continue with PT/OT. Recommend IRF placement for his ongoing medical and rehabilitation needs. He is willing to stay here at [facility]. 04/14: Continue with therapy as tolerated. Pending IRF transfer. Encouraged increased time EOB/OOB to build endurance, balance and strength.04/15: Gi cleared to start on anticoagulation given PE carlosley. Cr stable and trending down. Hematology consulted due to leukopenia along with anemia. Pt noted with elevated retic count. ? may need bone marrow bx. PT/OT continued. OOBdaily. 04/16: Planning for bone marrow bx. PT/OT. States improving gait. Hgb dropping. Today 7.3. Monitor when OOB. Rehab attestation:Face to face exam completed. Treatment plan discussed with patient. Meets continued stay criteria. Agree with interdisciplinary treatment plan. at 4460 RPT #:[id number] OF REPORTPRProgress [id number]:22:00G.[id number] able for patient rcupENPCVMRWPOGLNX9012-75-35Q76:16:46 [facility] 2023-04-15 22:15:00 [id number]+[id number]+fvIQatg6ZM 2IrmytIOjQbZ8T3HwVPB0sKsCeL2497-60-32Y88:15:00 [facility] ([facility])Avery/Oncology Progress NoteREPORT#:[id number] REPORT STATUS: SignedDATE:04/15/23 TIME: 2214 PATIENT: TEVIN NYE UNIT #: [id number]#: [id number] [address] AGE: 73 SEX: M ATTEND: Pablo Kumar [facility] AUTHOR: Dakota Arvizu MD * ALL edits or amendments must be made on the electronic/computer document * SubjectiveChief Complaint:Denies having any pain or other symptoms. Objective Physical ExamVS:Vital SignsDate Temp Pulse Resp B/P B/P Mean Pulse Ox AlM666/-04/15 36.7-37.0 42-84 14-17 116-146/56-85 80.7-105.5 93-100 Last Documented: Result Date Time Pulse Ox 100 04/15 2015 O2 Delivery Room air 04/15 2015 B/P 127/60 04/15 2008 B/P Mean 82.3 04/15 2008 Temp 36.7 04/15 2008 Pulse 42 04/15 2008 Resp 16 04/15 2008 O2 Flow Rate 2 04/15 0915 FiO2 28 04/10 0800 General appearance: alert, awakeHEENT: atraumatic, normocephalicNeck: full range of motion, non-tender, supple/no meningismus, no JVD, no lymphadenopathyCardiovascular: regular rate and rhythmRespiratory: clear to auscultationAbdomen: non-tender, normal bowel sounds, soft, no distention, no guarding, no mass/organomegaly, no reboundExtremities: moves all, normal capillary refill, no edemaMusculoskeletal: full range of motion, normal inspectionNeuro/SALES ASSISTANT: alert, oriented X 3Ulcer: Type/cause: scab left foot. ResultsFindings/Data:Laboratory Tests 04/15/23 0615:[Embedded Image Not Available]Laboratory Tests 04/15 04/15 04/15 04/15 04/15 1533 1046 0651 0615 0615Chemistry Sodium (134 - 147 mEq/L) 138 Potassium (3.4 - 5.0 mEq/L) 4.1 Chloride (100 - 108 mEq/L) 109 H Carbon Dioxide (21 - 33 mEq/l) 26 Anion Gap (0 - 20) 7 BUN (7 - 18 mg/dL) 20 H Creatinine (0.6 - 1.3 mg/dL) 1.3 Glomerular Filtr Rate (70 - 80) 58.4 L Glucose (70 - 110 mg/dL) 192 H POC Glucose (70 - 110 MG/DL) 184 H 202 H 207 H Calcium (8.0 - 10.5 mg/dL) 8.4 Magnesium (1.80 - 2.40 mg/dL) 1.94 Lactate Dehydrogenase (87 - 241 191IUnits/L) Vitamin B12 (193 - 986 pg/mL) 589 Folate (3.1 - 17.5 ng/mL) 14.0 Laboratory Tests 04/15 04/15 0615 0615 Hematology WBC (4.5 - 11.0 x10 3/uL) 3.9 L RBC (4.00 - 5.60 x10 6/uL) 2.72 L Hgb (12.5 - 16.9 g/dL) 8.0 L Hct (37.5 - 50.7 %) 25.6 L MCV (81.0 - 99.0 fL) 94.1 MCH (27.0 - 33.0 pg) 29.4 MCHC (33.0 - 37.0 g/dL) 31.3 L RDW (11.5 - 14.5 %) 17.6 H Plt Count (150 - 400 x10 3/uL) 164 MPV (7.0 - 9.0 fL) 11.0 H Neut % (Auto) (56.0 - 77.0 %) 80.3 H Lymph % (Auto) (14.0 - 32.0 %) 7.3 L [place] % (Auto) (4.8 - 9.0 %) 9.6 H Eos % (Auto) (0.3 - 3.7 %) 1.8 Baso % (Auto) (0.0 - 2.0 %) 0.5 Neut # (Auto) (2.0 - 7.6 x10 3/uL) 3.10 Lymph # (Auto) (1.0 - 3.8 x10 3/uL) 0.28 L [place] # (Auto) (0.1 - 0.8 x10 3/uL) 0.37 Eos # (Auto) (0.0 - 0.2 x10 3/uL) 0.07 Baso # (Auto) (0.0 - 0.2 x10 3/uL) 0.02 Abs Immat Gran (auto) (0.00 - 0.03 x10 3/uL) 0.02 Add Manual Diff NO Immature Gran % (0.0 - 2.0 %) 0.5 Nucleated RBC % (0 - 0 %) 0.0 Nucleated RBCs # (Man) (0.0 - 0.1 x10 3/uL) 0.00 Retic Count (auto) (0.3 - 2.3 %) 5.9 H Radiology data:Current Medications Sig/Yas Start time Last Medication Dose Route Stop Time Status Admin Enoxaparin Sodium 70 MG 08,04/15 2000 AC 04/15 SUBQ 05/15 1959 2107 Furosemide 20 MG ONCE ONE 04/15 1100 DC 04/15 IV 04/15 1101 1229 Amiodarone HCl 200 MG DAILY 04/14 0900 AC 04/15 PO 05/14 0859 0834 Enoxaparin Sodium 85 MG Q12H 04/12 1800 DC 04/15 SUBQ 05/12 1759 0528 Metoprolol Tartrate 25 MG Q8HR 04/10 1400 AC 04/15 PO 05/08 2259 1514 Atorvastatin Calcium 40 MG 2100 04/09 2100 AC 04/15 PO 05/09 2059 2107 Lactulose 20 GM BID PRN PRN 04/09 1900 AC 04/09 PO 05/09 1859 1933 Miscellaneous 1 EACH ASDIR 04/09 1530 CKD Information SUBQ 04/16 1529 Sterile Water See Dose ASDIR PRN 04/09 1230 AC Insts (1) IRR 05/09 1229 Aspirin 81 MG DAILY 04/09 1015 AC 04/15 PO 05/09 1014 0833 Fluoxetine HCl 10 MG QAM 04/09 0900 AC 04/15 PO 05/09 0859 0833 Insulin Human Lispro 0 AC HS 04/09 0730 AC 04/15 SUBQ 05/09 0729 1614 Albuterol/Ipratropium 3 ML RTQ4H 04/09 0000 AC 04/15 NEB 05/09 0000 2009 Tamsulosin HCl 0.8 MG BEDTIME 04/08 2300 AC 04/15 PO 05/08 225 210 Acetaminophen 650 MG Q4H PRN PRN 04/08 1800 AC 04/13 PO 05/08 1759 214 Ondansetron HCl 4 MG Q4H PRN PRN 04/08 1800 AC IV 05/08 175 Dose Instructions:(1)Sterile Water: DRESSING CHANGE Results: labs reviewed, vital signs stable Diagnosis, Assessment Plan Free Text DxA P NotesFree Text DxA P Notes:ASSESSMENT:* Normocytic, hypochromic anemia. This seems to be an anemia of chronic disease. With iron panel being normal it is less likely to be GI blood loss. Considering his leukopenia I suspect that he may be developing underlying primary bone marrow disease such as MDS.* Recurrent pulmonary embolism based on intermediate probability VQ scan.* History of coronary artery disease, status post 2 coronary artery bypass graftsurgery. PLAN:* Continues to have persistent normocytic, hypochromic anemia and leukopenia. Discussed with the patient that I am concerned that he may be developing any primary bone marrow disease such as MDS. Therefore have recommended a bone marrow aspiration and biopsy for further evaluation. He is agreeable to this plan.* Monitor CBC.* Patient may need to continue with anticoagulation considering benefits more than the risk.* Apparently his lower GI bleed is associated with constipation.* I will continue to follow. at 2219 RPT #:[id number] OF REPORTPRProgress [id number]:15:00G.[id number] able for patient uxrlUELUXEBGSMPBTZ9050-59-24E47:20:18 [facility] 2023-04-15 20:52:00 [id number] xIpu5ujNBoRO3dlKRkYf7TjecxcOh 5hLxllOOYdhdJPBsOvZlzGTFscs8383-37-89T11:52:00 [facility] ([facility])Podiatry Progress NoteREPORT#:[id number] REPORT STATUS: SignedDATE:04/15/23 TIME: 2051 PATIENT: TEVIN NYE UNIT #: [id number]#: [id number] [address] [birth year] AGE: 73 SEX: M ATTEND: Pablo Kumar MDADM AUTHOR: Andres Rachel DPM * ALL edits or amendments must be made on the electronic/computer document * SubjectiveChief complaint:left foot ulcerPatient reports: no confusion, no diarrhea, no fatigue, no fever, no heartburn, no nauseaComments:pt very pleasant. doesnt have prevalon boots.is interested. dressing had fallen off of the foot. pt has pain. only takes tylenol. on exam: ulcer dorsal right forefoot with scabbing.dry peeling necrosis Objective GeneralVS:Last Documented: Result Date Time Pulse Ox 98 04/15 2008 B/P 127/60 04/15 2008 B/P Mean 82.3 04/15 2008 O2 Delivery Nasal cannula 04/15 2008 Temp 36.7 04/15 2008 Pulse 42 04/15 2008 Resp 16 04/15 2008 O2 Flow Rate 2 04/15 0915 FiO2 28 04/10 0800 PATIENT WEIGHT: Weight (lb): Weight (oz): Weight (kg): 86.200 Medications:Active Meds + DC'd Last 24 HrsEnoxaparin Sodium (lovENOX) 70 MG 0800,1999 SUBQ Furosemide (LASIX 20MG INJ) 20 MG ONCE ONE IV (DC) Amiodarone HCl (CORDARONE) 200 MG DAILY PO Enoxaparin Sodium (lovENOX) 85 MG Q12H SUBQ (DC) Metoprolol Tartrate (LOPRESSOR) 25 MG Q8HR PO Atorvastatin Calcium (LIPITOR) 40 MG 2100 PO Lactulose (LACTULOSE) 20 GM BID PRN PRN PO Miscellaneous Information (LOVENOX PHARMACY TO DOSE) 1 EACH ASDIR SUBQ (CKD) Sterile Water (WATER FOR IRRIGATION) DRESSING CHANGE ASDIR PRN IRR Aspirin (ASPIRIN) 81 MG DAILY PO Fluoxetine HCl (PROzac) 10 MG QAM PO Insulin Human Lispro (HUMALOG) 0 AC HS SUBQ Albuterol/Ipratropium (DUONEB) 3 ML RTQ4H NEB Tamsulosin HCl (Flomax 0.4 mg) 0.8 MG BEDTIME PO Acetaminophen (TYLENOL) 650 MG Q4H PRN PRN PO Ondansetron HCl (ZOFRAN) 4 MG Q4H PRN PRN IV I O:24 hour I O ending at 0700: 08 0700 04/14 1900 Intake Total Output Total 800 Balance -800 Output, Urine 800 Dietitian nutrition assessmentThe data set between the solid lines has been imported from the dietitian's assessment. BMI Calculated: 29.8Nutrition related diagnosis: Nutrition diagnosis details: Nutrition problem: Nutrition etiology: Nutrition signs and symptoms: Nutrition prescription: Dietitian name: Assessment completed: Physical ExamGeneral appearance: alert, awake, orientedWound/incision: Location:bilat foot Site condition: small pinpoint ulcer right foot. ulcer left forefoot dorsal. partial and full thickness. no erythema. no depth.LE vascular pulse assess:Nonpalpable R posterior tibialis, Nonpalpable L posterior tibialis, Nonpalpable R dorsalis pedis, Nonpalpable L dorsalis pedis ResultsFindings/Data:Laboratory Tests: 04/15 04/15 04/15 04/15 1533 1046 0651 0615 Chemistry POC Glucose (70 - 110 MG/DL) 184 H 202 H 207 H Vitamin B12 (193 - 986 pg/mL) 589 Folate (3.1 - 17.5 ng/mL) 14.0 Hematology Retic Count (auto) (0.3 - 2.3 %) 5.9 H 08/08 0615 Chemistry Sodium (134 - 147 mEq/L) 138 Potassium (3.4 - 5.0 mEq/L) 4.1 Chloride (100 - 108 mEq/L) 109 H Carbon Dioxide (21 - 33 mEq/l) 26 Anion Gap (0 - 20) 7 BUN (7 - 18 mg/dL) 20 H Creatinine (0.6 - 1.3 mg/dL) 1.3 Glomerular Filtr Rate (70 - 80) 58.4 L Glucose (70 - 110 mg/dL) 192 H Calcium (8.0 - 10.5 mg/dL) 8.4 Magnesium (1.80 - 2.40 mg/dL) 1.94 Lactate Dehydrogenase (87 - 241 IUnits/L) 191 Hematology WBC (4.5 - 11.0 x10 3/uL) 3.9 L RBC (4.00 - 5.60 x10 6/uL) 2.72 L Hgb (12.5 - 16.9 g/dL) 8.0 L Hct (37.5 - 50.7 %) 25.6 L MCV (81.0 - 99.0 fL) 94.1 MCH (27.0 - 33.0 pg) 29.4 MCHC (33.0 - 37.0 g/dL) 31.3 L RDW (11.5 - 14.5 %) 17.6 H Plt Count (150 - 400 x10 3/uL) 164 MPV (7.0 - 9.0 fL) 11.0 H Neut % (Auto) (56.0 - 77.0 %) 80.3 H Lymph % (Auto) (14.0 - 32.0 %) 7.3 L [place] % (Auto) (4.8 - 9.0 %) 9.6 H Eos % (Auto) (0.3 - 3.7 %) 1.8 Baso % (Auto) (0.0 - 2.0 %) 0.5 Neut # (Auto) (2.0 - 7.6 x10 3/uL) 3.10 Lymph # (Auto) (1.0 - 3.8 x10 3/uL) 0.28 L [place] # (Auto) (0.1 - 0.8 x10 3/uL) 0.37 Eos # (Auto) (0.0 - 0.2 x10 3/uL) 0.07 Baso # (Auto) (0.0 - 0.2 x10 3/uL) 0.02 Abs Immat Gran (auto) (0.00 - 0.03 x10 3/uL) 0.02 Add Manual Diff NO Immature Gran % (0.0 - 2.0 %) 0.5 Nucleated RBC % (0 - 0 %) 0.0 Nucleated RBCs # (Man) (0.0 - 0.1 x10 3/uL) 0.00 Diagnosis, Assessment PlanFree Text A P:ulcer left foot.painPVD ulcer is benign...starting to peelcontinue local wound care.no xray found.venous u/s neg NIAS: pvd as expected.rec'd to pt prevalon boots. covering for Dr. [place] at 2053 RPT #:[id number] OF REPORTPRProgress [id number]:52:00G.[id number] able for patient zbxiJQACVCUIKINKRH8041-02-88R34:54:11 [facility] 2023-04-15 11:57:00 [id number]X08l 4J5vo3vaV0//QNxX/pResza8e0u4037-67-36F98:57:00 [facility] Progress NoteREPORT#:[id number] REPORT STATUS: SignedDATE:04/15/23 TIME: 1156 PATIENT: TEVIN NYE UNIT #: [id number]#: [id number] [address] [birth year] AGE: 73 SEX: M ATTEND: Pablo Kumar [facility] AUTHOR: Clint Roman * ALL edits or amendments must be made on the electronic/computer document * Clint Roman 04/15/23 1157:SubjectiveComments:no further rectal bleeding reported. no nausea or vomiting. no abdominal pain Review of SystemsAdditional notes:10 point ros neg except hpi Objective GeneralVS/I O:Last Documented: Result Date Time Pulse Ox 99 04/15 1047 B/P 127/69 04/15 1047 B/P Mean 88.5 04/15 1047 Temp 98.2 04/15 104 Pulse 64 04/15 1047 Resp 17 04/15 104 O2 Delivery Nasal cannula 04/15 915 O2 Flow Rate 2 04/15 915 FiO2 28 04/10 08 24 hour I O ending at 0700: 04/15 0700 04/14 1900 Intake Total Output Total 800 Balance -800 Output, Urine 800 PATIENT WEIGHT: Weight (lb): Weight (oz): Weight (kg): 86.200 Medications:Active Meds + DC'd Last 24 HrsEnoxaparin Sodium (lovENOX) 70 MG 0800,2000 SUBQ Furosemide (LASIX 20MG INJ) 20 MG ONCE ONE IV (DC) Furosemide (LASIX 20MG INJ) 20 MG ONCE ONE IV (DC) Amiodarone HCl (CORDARONE) 200 MG DAILY PO Enoxaparin Sodium (lovENOX) 85 MG Q12H SUBQ (DC) Metoprolol Tartrate (LOPRESSOR) 25 MG Q8HR PO Atorvastatin Calcium (LIPITOR) 40 MG 2100 PO Lactulose (LACTULOSE) 20 GM BID PRN PRN PO Miscellaneous Information (LOVENOX PHARMACY TO DOSE) 1 EACH ASDIR SUBQ (CKD) Sterile Water (WATER FOR IRRIGATION) DRESSING CHANGE ASDIR PRN IRR Aspirin (ASPIRIN) 81 MG DAILY PO Fluoxetine HCl (PROzac) 10 MG QAM PO Insulin Human Lispro (HUMALOG) 0 AC HS SUBQ Albuterol/Ipratropium (DUONEB) 3 ML RTQ4H NEB Tamsulosin HCl (Flomax 0.4 mg) 0.8 MG BEDTIME PO Acetaminophen (TYLENOL) 650 MG Q4H PRN PRN PO Ondansetron HCl (ZOFRAN) 4 MG Q4H PRN PRN IV Physical ExamGeneral appearance: alert, awakeHEENT: atraumatic, normocephalicNeck: full range of motionCardiovascular: normal heart sounds, regular rate rhythmRespiratory: no distress, on oxygenAbdomen: non-tender, normal bowel sounds, soft, no distentionExtremities: decreased range of motionNeuro/SALES ASSISTANT: alert, oriented X 3Skin: dry, intactUlcer: Type/cause: scab left foot.Psychiatry: normal affect, normal judgment/insight ResultsFindings/Data:Laboratory Tests 04/15/2315:[Embedded Image Not Available]Laboratory Tests 04/15 04/15 04/15 04/15 04/14 1046 0651 0615 15 2028Chemistry Sodium (134 - 147 mEq/L) 138 Potassium (3.4 - 5.0 mEq/L) 4.1 Chloride (100 - 108 mEq/L) 109 H Carbon Dioxide (21 - 33 mEq/l) 26 Anion Gap (0 - 20) 7 BUN (7 - 18 mg/dL) 20 H Creatinine (0.6 - 1.3 mg/dL) 1.3 Glomerular Filtr Rate (70 - 80) 58.4 L Glucose (70 - 110 mg/dL) 192 H POC Glucose (70 - 110 MG/DL) 202 H 207 H 204 H Calcium (8.0 - 10.5 mg/dL) 8.4 Magnesium (1.80 - 2.40 mg/dL) 1.94 Lactate Dehydrogenase (87 - 241 IUnits/L) 191 Vitamin B12 (193 - 986 pg/mL) 589 Folate (3.1 - 17.5 ng/mL) 14.0 04/14 1626 Chemistry POC Glucose (70 - 110 MG/DL) 215 H Laboratory Tests 04/15 04/15 0615 0615 Hematology WBC (4.5 - 11.0 x10 3/uL) 3.9 L RBC (4.00 - 5.60 x10 6/uL) 2.72 L Hgb (12.5 - 16.9 g/dL) 8.0 L Hct (37.5 - 50.7 %) 25.6 L MCV (81.0 - 99.0 fL) 94.1 MCH (27.0 - 33.0 pg) 29.4 MCHC (33.0 - 37.0 g/dL) 31.3 L RDW (11.5 - 14.5 %) 17.6 H Plt Count (150 - 400 x10 3/uL) 164 MPV (7.0 - 9.0 fL) 11.0 H Neut % (Auto) (56.0 - 77.0 %) 80.3 H Lymph % (Auto) (14.0 - 32.0 %) 7.3 L [place] % (Auto) (4.8 - 9.0 %) 9.6 H Eos % (Auto) (0.3 - 3.7 %) 1.8 Baso % (Auto) (0.0 - 2.0 %) 0.5 Neut # (Auto) (2.0 - 7.6 x10 3/uL) 3.10 Lymph # (Auto) (1.0 - 3.8 x10 3/uL) 0.28 L [place] # (Auto) (0.1 - 0.8 x10 3/uL) 0.37 Eos # (Auto) (0.0 - 0.2 x10 3/uL) 0.07 Baso # (Auto) (0.0 - 0.2 x10 3/uL) 0.02 Abs Immat Gran (auto) (0.00 - 0.03 x10 3/uL) 0.02 Add Manual Diff NO Immature Gran % (0.0 - 2.0 %) 0.5 Nucleated RBC % (0 - 0 %) 0.0 Nucleated RBCs # (Man) (0.0 - 0.1 x10 3/uL) 0.00 Retic Count (auto) (0.3 - 2.3 %) 5.9 H Diagnosis, Assessment PlanFree Text A P:Assessment dyspnea on exertionPE hx of prostate cancer, s/p radiation therapy anemia rectal bleeding, mild, resolved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leukopenia Patient is a 73 year old presented with dyspnea on exertion, being treated for recurrent PE, currently on lovenox. He denies any significant issues with gi bleeding when previously on eliquis for prior pulmonary embolism. He reports intermittent mild rectal bleeding and a history of prostate cancer with completion of radiation therapy. Currently, denies any further bleeding. Plan:- monitor h/h, transfuse as needed- monitor for further bleeding - diet as tolerated - agree with pulm recs, plans for eventual transition to eliquis - ok from gi standpoint to transition to eliquis, benefits > risks- hematology following, appreciate input Roberto Galeano 04/16/23 4350:Attestations Physician AttestationAgree w/findings plan:Agree with the findings and plan as documented by Abel PRITCHARD; at 1253 at 1653 RPT #:[id number] OF REPORTPRProgress [id number]:57:00G.[id number] able for patient tywzONCSBUFJAJSOMI1214-35-96Q55:53:29 [facility] 2023-04-15 10:44:00 [id number] 28rg7soHIcHuSofUIbzRizU4Dnb3343-24-43G50:44:00 [facility] CenterHospital[facility] Progress NoteREPORT#:[id number] REPORT STATUS: SignedDATE:04/15/23 TIME: 1044 PATIENT: TEVIN NYE UNIT #: [id number]#: [id number] [address] [birth year] AGE: 73 SEX: M ATTEND: Pablo Kumar [facility] AUTHOR: Pablo Kumar MD * ALL edits or amendments must be made on the electronic/computer document * SubjectiveChief complaint:doing fine. no cp. no sob. Objective GeneralVS/I O:Vital Signs: Date Time Temp Pulse Resp B/P B/P Pulse O2 O2 Flow FiO2 Mean Ox Delivery Rate 04/15 0915 Nasal 2 cannula 04/15 0824 96 Room air 04/15 0652 98.2 57 17 120/63 82.1 93 04/15 0528 84 139/76 97 04/15 0456 98.2 64 16 116/63 80.7 97 Room air 04/15 0227 98.4 60 16 146/85 105.5 95 Nasal cannula 04/14 2250 59 14 134/72 92 98 Nasal 2 cannula 04/147 99 Nasal 2 cannula 04/141 98.2 39 16 126/51 76.2 92 Nasal cannula 04/14 2000 Nasal 2 cannula 04/14 1557 98.1 47 17 137/76 96.5 93 04/14 1107 98.1 69 17 153/70 97.5 98 24 hour I O ending at 0700: 04/15 0700 04/14 1900 Intake Total Output Total 800 Balance -800 Output, Urine 800 PATIENT WEIGHT: Weight (lb): Weight (oz): Weight (kg): 86.200 Physical ExamGeneral appearance: alert, awakeHead/Eyes: atraumatic, clear cornea, EOMINeck: supple/no meningismusCardiovascular: normal heart sounds, regular rate rhythm, no gallop, no murmur, no rubRespiratory: aerating well, clear to auscultation, symmetric expansionAbdomen: non-tender, normal bowel sounds, soft, no distentionExtremities: no clubbing, no cyanosis, no edemaMusculoskeletal: normal inspection, painless range of motionNeuro/SALES ASSISTANT: alert, oriented X 3, CNII-XII intactSkin: dry, intactUlcer: Type/cause: scab left foot. ResultsRadiology data:Laboratory Tests 04/15/23 0615:[Embedded Image Not Available] 04/14/23 0454:[Embedded Image Not Available] Current Medications Sig/Yas Start time Last Medication Dose Route Stop Time Status Admin Enoxaparin Sodium 70 MG 08,04/15 AC SUBQ 05/15 195 Furosemide 20 MG ONCE ONE 04/14 1415 DC 04/14 IV 04/14 1416 1533 Amiodarone HCl 200 MG DAILY 04/14 0900 AC 04/15 PO 05/14 0859 0834 Magnesium Sulfate 100 ML ONCE ONE 04/14 0745 DC 04/14 IV 04/14 1144 0919 Enoxaparin Sodium 85 MG Q12H 04/12 1800 DC 04/15 SUBQ 05/12 1759 0528 Metoprolol Tartrate 25 MG Q8HR 04/10 1400 AC 04/15 PO 05/08 225 0527 Atorvastatin Calcium 40 MG 2100 04/09 2100 AC 04/14 PO 05/09 205 2248 Lactulose 20 GM BID PRN PRN 04/09 1900 AC 04/09 PO 05/09 1859 1933 Miscellaneous 1 EACH ASDIR 04/09 1530 CKD Information SUBQ 04/16 1529 Sterile Water See Dose ASDIR PRN 04/09 1230 AC Insts (1) IRR 05/09 1229 Aspirin 81 MG DAILY 04/09 1015 AC 04/15 PO 05/09 1014 0833 Fluoxetine HCl 10 MG QAM 04/09 0900 AC 04/15 PO 05/09 0859 0833 Insulin Human Lispro 0 AC HS 04/09 0730 AC 04/15 SUBQ 05/09 0729 0834 Albuterol/Ipratropium 3 ML RTQ4H 04/09 0000 AC 04/15 NEB 05/09 0000 0822 Tamsulosin HCl 0.8 MG BEDTIME 04/08 2300 AC 04/14 PO 05/08 2259 2247 Acetaminophen 650 MG Q4H PRN PRN 04/08 1800 AC 04/13 PO 05/08 1759 2147 Ondansetron HCl 4 MG Q4H PRN PRN 04/08 1800 AC IV 05/08 1759 Dose Instructions:(1)Sterile Water: DRESSING CHANGE Laboratory Tests: 04/15 04/15 04/15 04/14 04/14 0651 0615 0615 2028 1626Chemistry Sodium (134 - 147 mEq/L) 138 Potassium (3.4 - 5.0 mEq/L) 4.1 Chloride (100 - 108 mEq/L) 109 H Carbon Dioxide (21 - 33 mEq/l) 26 Anion Gap (0 - 20) 7 BUN (7 - 18 mg/dL) 20 H Creatinine (0.6 - 1.3 mg/dL) 1.3 Glomerular Filtr Rate (70 - 80) 58.4 L Glucose (70 - 110 mg/dL) 192 H POC Glucose (70 - 110 MG/DL) 207 H 204 H 215 H Calcium (8.0 - 10.5 mg/dL) 8.4 Magnesium (1.80 - 2.40 mg/dL) 1.94 Lactate Dehydrogenase (87 - 241 IUnits/L) 191 Vitamin B12 (193 - 986 pg/mL) 589 Folate (3.1 - 17.5 ng/mL) 14.0Hematology WBC (4.5 - 11.0 x10 3/uL) 3.9 L RBC (4.00 - 5.60 x10 6/uL) 2.72 L Hgb (12.5 - 16.9 g/dL) 8.0 L Hct (37.5 - 50.7 %) 25.6 L MCV (81.0 - 99.0 fL) 94.1 MCH (27.0 - 33.0 pg) 29.4 MCHC (33.0 - 37.0 g/dL) 31.3 L RDW (11.5 - 14.5 %) 17.6 H Plt Count (150 - 400 x10 3/uL) 164 MPV (7.0 - 9.0 fL) 11.0 H Neut % (Auto) (56.0 - 77.0 %) 80.3 H Lymph % (Auto) (14.0 - 32.0 %) 7.3 L [place] % (Auto) (4.8 - 9.0 %) 9.6 H Eos % (Auto) (0.3 - 3.7 %) 1.8 Baso % (Auto) (0.0 - 2.0 %) 0.5 Neut # (Auto) (2.0 - 7.6 x10 3/uL) 3.10 Lymph # (Auto) (1.0 - 3.8 x10 3/uL) 0.28 L [place] # (Auto) (0.1 - 0.8 x10 3/uL) 0.37 Eos # (Auto) (0.0 - 0.2 x10 3/uL) 0.07 Baso # (Auto) (0.0 - 0.2 x10 3/uL) 0.02 Abs Immat Gran (auto) (0.00 - 0.03 0.02x10 3/uL) Add Manual Diff NO Immature Gran % (0.0 - 2.0 %) 0.5 Nucleated RBC % (0 - 0 %) 0.0 Nucleated RBCs # (Man) (0.0 - 0.1 0.00x10 3/uL) Retic Count (auto) (0.3 - 2.3 %) 5.9 H 08/07 1106 Chemistry POC Glucose (70 - 110 MG/DL) 209 H Diagnosis, Assessment Plan Free Text DxA P NotesFree text DxA P notes:SOBcardiology and pulmonary seenon 2.5 to 3 liters of oxygen per n/cecho wnlwill give lasix twenty mg one time dosecheck chest xray8/- CXR on 04/13 was negative. pulmonary following. elevated D-dimerV-Q scan with intermediate probabilityon therapeutic lovenox renally dosed for now04/14- pulmonary following...worsening anemia, but guiaiac negaive anemia04/14- hgb dropped to 8 today (9.7 two days ago). ask heme to see. h/o cancer. guiaiac negative. 04/15- hgb stable at 8. JERAMY with CKDrenal seenon IVFcreat improving COPDon home oxygen h/o CADs/p CABG X4 on 3CTS consulted and seen DMaccuchecks and SSI prncheck A1CBG controlled HTNbp controlledresumed home meds HLDon statinstable Prostate cancers/p XRT Debilityper PT/OT could be a post acute rehab candidate consulted rehabrecommend IRF check labs in [facility]/up wiht DR. Rinaldi 04/14- awiaitng tranfer to rehab. folow h/h. ask heme to see.04/15- h/h stable. cleared by GI to change lovenox to Eliquis if pulmonary wishes. at 1046 RPT #:[id number] OF REPORTPRProgress [id number]:44:00G.[id number] able for patient mwzyAGJCVGEJVMKCZI0046-10-41Q58:46:52 [facility] 2023-04-15 10:25:00 [id number] 8qk2UfdP+qvCO3m0ebVuIqFz2cX2382-57-62X37:25:00 [facility] ([facility])Pulmonology Progress NoteREPORT#:[id number] REPORT STATUS: SignedDATE:04/15/23 TIME: 1025 PATIENT: TEVIN NYE UNIT #: [id number]#: [id number] ROOM/BED: [facility]DOB: [birth year] AGE: 73 SEX: M ATTEND: Pablo Kumar [facility] AUTHOR: Sharmila Alna * ALL edits or amendments must be made on the electronic/computer document * SubjectiveComments:On NC, comfortable, no new complaints ROSAll systems rev neg: except as marked Objective GeneralVS/I O:Last Documented: Result Date Time O2 Delivery Nasal cannula 04/15 915 O2 Flow Rate 2 04/15 915 Pulse Ox 96 04/15 0824 B/P 120/63 04/15 652 B/P Mean 82.1 04/15 652 Temp 36.8 04/15 652 Pulse 57 04/15 652 Resp 17 04/15 652 FiO2 28 04/10 08 24 hour I O ending at 0700: 04/15 0700 04/14 1900 Intake Total Output Total 800 Balance -800 Output, Urine 800 PATIENT WEIGHT: Weight (lb): Weight (oz): Weight (kg): 86.200 Medications:Active Meds + DC'd Last 24 HrsEnoxaparin Sodium (lovENOX) 70 MG 0800,2000 SUBQ Furosemide (LASIX 20MG INJ) 20 MG ONCE ONE IV (DC) Amiodarone HCl (CORDARONE) 200 MG DAILY PO Magnesium Sulfate (MAGNESIUM SULFATE 4GM/SWFI 100ML) 100 ML ONCE ONE IV (DC) Enoxaparin Sodium (lovENOX) 85 MG Q12H SUBQ (DC) Metoprolol Tartrate (LOPRESSOR) 25 MG Q8HR PO Atorvastatin Calcium (LIPITOR) 40 MG 2100 PO Lactulose (LACTULOSE) 20 GM BID PRN PRN PO Miscellaneous Information (LOVENOX PHARMACY TO DOSE) 1 EACH ASDIR SUBQ (CKD) Sterile Water (WATER FOR IRRIGATION) DRESSING CHANGE ASDIR PRN IRR Aspirin (ASPIRIN) 81 MG DAILY PO Fluoxetine HCl (PROzac) 10 MG QAM PO Insulin Human Lispro (HUMALOG) 0 AC HS SUBQ Albuterol/Ipratropium (DUONEB) 3 ML RTQ4H NEB Tamsulosin HCl (Flomax 0.4 mg) 0.8 MG BEDTIME PO Acetaminophen (TYLENOL) 650 MG Q4H PRN PRN PO Ondansetron HCl (ZOFRAN) 4 MG Q4H PRN PRN IV Physical ExamGeneral appearance: alert, awake, oriented, no acute distressHead/eyes: atraumatic, normocephalic, PERRL, EOMINeck: no JVD, no lymphadenopathyCardiovascular: normal heart sounds, normal S1/S2, regular rate rhythmRespiratory/chest: decreased breath sounds, on oxygen, aerating well, symmetric expansionAbdomen: soft, no guardingExtremities: moves all, no clubbing, no cyanosis, no edemaNeuro/SALES ASSISTANT: CNII-XII intactSkin: dry, intactUlcer: Type/cause: scab left foot.Psychiatry: normal affect, normal judgment/insight, normal mood ResultsFindings/Data:Laboratory Tests 04/15/23614:[Embedded Image Not Available]Laboratory Tests 04/15 1626Chemistry Sodium (134 - 147 mEq/L) 138 Potassium (3.4 - 5.0 mEq/L) 4.1 Chloride (100 - 108 mEq/L) 109 H Carbon Dioxide (21 - 33 mEq/l) 26 Anion Gap (0 - 20) 7 BUN (7 - 18 mg/dL) 20 H Creatinine (0.6 - 1.3 mg/dL) 1.3 Glomerular Filtr Rate (70 - 80) 58.4 L Glucose (70 - 110 mg/dL) 192 H POC Glucose (70 - 110 MG/DL) 207 H 204 H 215 H Calcium (8.0 - 10.5 mg/dL) 8.4 Magnesium (1.80 - 2.40 mg/dL) 1.94 Lactate Dehydrogenase (87 - 241 IUnits/L) 191 Vitamin B12 (193 - 986 pg/mL) 589 Folate (3.1 - 17.5 ng/mL) 14.0 04/14 1106 Chemistry POC Glucose (70 - 110 MG/DL) 209 H Laboratory Tests 04/1515 0615 Hematology WBC (4.5 - 11.0 x10 3/uL) 3.9 L RBC (4.00 - 5.60 x10 6/uL) 2.72 L Hgb (12.5 - 16.9 g/dL) 8.0 L Hct (37.5 - 50.7 %) 25.6 L MCV (81.0 - 99.0 fL) 94.1 MCH (27.0 - 33.0 pg) 29.4 MCHC (33.0 - 37.0 g/dL) 31.3 L RDW (11.5 - 14.5 %) 17.6 H Plt Count (150 - 400 x10 3/uL) 164 MPV (7.0 - 9.0 fL) 11.0 H Neut % (Auto) (56.0 - 77.0 %) 80.3 H Lymph % (Auto) (14.0 - 32.0 %) 7.3 L [place] % (Auto) (4.8 - 9.0 %) 9.6 H Eos % (Auto) (0.3 - 3.7 %) 1.8 Baso % (Auto) (0.0 - 2.0 %) 0.5 Neut # (Auto) (2.0 - 7.6 x10 3/uL) 3.10 Lymph # (Auto) (1.0 - 3.8 x10 3/uL) 0.28 L [place] # (Auto) (0.1 - 0.8 x10 3/uL) 0.37 Eos # (Auto) (0.0 - 0.2 x10 3/uL) 0.07 Baso # (Auto) (0.0 - 0.2 x10 3/uL) 0.02 Abs Immat Gran (auto) (0.00 - 0.03 x10 3/uL) 0.02 Add Manual Diff NO Immature Gran % (0.0 - 2.0 %) 0.5 Nucleated RBC % (0 - 0 %) 0.0 Nucleated RBCs # (Man) (0.0 - 0.1 x10 3/uL) 0.00 Retic Count (auto) (0.3 - 2.3 %) 5.9 H Diagnosis, Assessment PlanFree Text A P:Acute on chronic hypoxemic respiratory failure supplemental O2 as needed and wean as tolerated Pulmonary embolism Initially diagnosed in November 2022 at outside hospital; was on Eliquis from diagnosis through February. CTA chest 03/03/2023 was negative for pulmonary embolism. Patient was discharged home 03/13/2023 and told to discontinue taking Eliquis.-D-dimer 1496. -VQ scan with intermediate probability. 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 Check bilateral lower extremity Dopplers -> neg-Renally dose lovenox @ 1mg/kg once daily -d/w cardio. will ultimately AC with eliquis asa and off plavix. Continue lovenox for now. COPD No exacerbation. On Combivent and ipratropium nebs at home.-May need repeat pulmonary function test outpatient. Follows with the OR but looking for civilian patient registration specialist due to issues with the [facility] care RLL nodule CT chest 03/03/2023. 1.5 x 0.8 cm nodular opacity in RLL needs follow-up in 3 months CAD / PAD S/p CABG 03/04/2023 Cardiothoracic surgery following Pending echo- will need periph angio when cr improved JERAMY/CKD Nephrology consult Strict I O. 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- GI clearance prior [facility] PT/OTRehab eval at 1026 RPT #:[id number] OF REPORTPRProgress [id number]:25:00G.[id number] able for patient zyqzSSNXLJYXSAIKMX6446-96-92U33:27:10 [facility] 2023-04-15 09:34:00 [id number]/bbNfZXbFaWsOKhp5M+BVDG CjquTl2ZYbYnUTe9Xb2o28K1NKy4005-97-79N21:34:00 [facility])Rehab Progress NoteREPORT#:[id number] REPORT STATUS: SignedDATE:04/15/23 TIME: 933 PATIENT: TEVIN NYE UNIT #: [id number]#: [id number] RO[address]DOB: [birth year] AGE: 73 SEX: M ATTEND: Pablo Kumar [facility] AUTHOR: Nicolasa Galeano PA-C * ALL edits or amendments must be made on the electronic/computer document * SubjectiveChief complaint:Pt seen and examined in bed. No acute distress. States that his breathing is getting better. States that he is always taken off his Prac on admission which causes hightened anxiety. Objective GeneralVS:Vital Signs: Date Time Temp Pulse Resp B/P B/P Pulse O2 O2 Flow FiO2 Mean Ox Delivery Rate 04/15 0824 96 Room air 04/15 0652 98.2 57 17 120/63 82.1 93 04/15 0528 84 139/76 97 04/15 0456 98.2 64 16 116/63 80.7 97 Room air 04/15 0227 98.4 60 16 146/85 105.5 95 Nasal cannula 04/14 2250 59 14 134/72 92 98 Nasal 2 cannula 04/14 2057 99 Nasal 2 cannula 04/14 2031 98.2 39 16 126/51 76.2 92 Nasal cannula 04/14 2000 Nasal 2 cannula 04/14 1557 98.1 47 17 137/76 96.5 93 04/14 1107 98.1 69 17 153/70 97.5 98 PATIENT WEIGHT: Weight (lb): Weight (oz): Weight (kg): 86.200 Medications:Active Meds + DC'd Last 24 HrsEnoxaparin Sodium (lovENOX) 70 MG 0800,1999 SUBQ Furosemide (LASIX 20MG INJ) 20 MG ONCE ONE IV (DC) Amiodarone HCl (CORDARONE) 200 MG DAILY PO Enoxaparin Sodium (lovENOX) 85 MG Q12H SUBQ (DC) Metoprolol Tartrate (LOPRESSOR) 25 MG Q8HR PO Atorvastatin Calcium (LIPITOR) 40 MG 2100 PO Lactulose (LACTULOSE) 20 GM BID PRN PRN PO Miscellaneous Information (LOVENOX PHARMACY TO DOSE) 1 EACH ASDIR SUBQ (CKD) Sterile Water (WATER FOR IRRIGATION) DRESSING CHANGE ASDIR PRN IRR Aspirin (ASPIRIN) 81 MG DAILY PO Fluoxetine HCl (PROzac) 10 MG QAM PO Insulin Human Lispro (HUMALOG) 0 AC HS SUBQ Albuterol/Ipratropium (DUONEB) 3 ML RTQ4H NEB Tamsulosin HCl (Flomax 0.4 mg) 0.8 MG BEDTIME PO Acetaminophen (TYLENOL) 650 MG Q4H PRN PRN PO Ondansetron HCl (ZOFRAN) 4 MG Q4H PRN PRN IV Functional ProgressFunctional progress:PT: Precautions: Fall Pre- Gait Mobility Y/N: Yes Safety addressed through use of: Gait Belt Verbal Cues Tactile Cues Extra Personnel Gait Device RW Vital Signs/Oxygen: Yes Weightbearing: No Restriction Ambulation Distance: 100 FT 200 FT Progression: Forward Assistance Level: Minimal Assistance Gait Deviations: SHORT STEPS FLEXED FORWARD Antalgic Gait Left Document Pain/Education: No Advanced Progression: No Effects of Treatment: [place] of care decreased Circulation improved Post [place] Precautions: FALL WC TO FOLLOW Review Plan of Care: Yes PT charges: Gait Training [id number] Gait Cmt: PATIENT COULD AMBULATE FOR 100 FT AND 200 FT USING RW WITH MIN. ASSSIST, HAD TO REST CORRECTION DUE TO SHORTNESS OF BREATH , O2 STATE WAS 91 % ON ROOM AIR. WHEN OXYGEN WAS REPLACED AND O2 STAT INCREASED TO 97% PATIENT ANXIOUS AND EASILY GETS NERVOUS. If this is the patient's last treatment, this entry serves as the discharge summary: Y Start Time: 1435 Stop Time: 1450 Treatment Time: (minutes) 0:15 Completed by: Sebastian Harrison Conference/Supervising PT: Yes Supervising Therapist: Sebastian Hawkins Reviewed and Approved By: SEBASTIAN HARRISON, PT Physical ExamGeneral appearance: alert, awakePsych: alert, normal affectNeck: non-tender, suppleCardiovascular: regular rate rhythm, S1/K2Pxkadojpoij: diminished breath sounds, aerating wellAbdomen: bowel sounds present, soft, non-tenderUlcer: Type/cause: scab left foot.Musculoskeletal - general: Musculoskeletal - general: normal muscle massNeuro/SALES ASSISTANT: alert, oriented X 3, CNII-XII intact, normal speech, no sensory deficits ResultsFindings/Data:Laboratory Tests: 04/15 04/15 04/15 04/14 04/14 0651 0615 0615 2028 1626Chemistry Sodium (134 - 147 mEq/L) 138 Potassium (3.4 - 5.0 mEq/L) 4.1 Chloride (100 - 108 mEq/L) 109 H Carbon Dioxide (21 - 33 mEq/l) 26 Anion Gap (0 - 20) 7 BUN (7 - 18 mg/dL) 20 H Creatinine (0.6 - 1.3 mg/dL) 1.3 Glomerular Filtr Rate (70 - 80) 58.4 L Glucose (70 - 110 mg/dL) 192 H POC Glucose (70 - 110 MG/DL) 207 H 204 H 215 H Calcium (8.0 - 10.5 mg/dL) 8.4 Magnesium (1.80 - 2.40 mg/dL) 1.94 Lactate Dehydrogenase (87 - 241 IUnits/L) 191 Vitamin B12 (193 - 986 pg/mL) 589 Folate (3.1 - 17.5 ng/mL) 14.0Hematology WBC (4.5 - 11.0 x10 3/uL) 3.9 L RBC (4.00 - 5.60 x10 6/uL) 2.72 L Hgb (12.5 - 16.9 g/dL) 8.0 L Hct (37.5 - 50.7 %) 25.6 L MCV (81.0 - 99.0 fL) 94.1 MCH (27.0 - 33.0 pg) 29.4 MCHC (33.0 - 37.0 g/dL) 31.3 L RDW (11.5 - 14.5 %) 17.6 H Plt Count (150 - 400 x10 3/uL) 164 MPV (7.0 - 9.0 fL) 11.0 H Neut % (Auto) (56.0 - 77.0 %) 80.3 H Lymph % (Auto) (14.0 - 32.0 %) 7.3 L [place] % (Auto) (4.8 - 9.0 %) 9.6 H Eos % (Auto) (0.3 - 3.7 %) 1.8 Baso % (Auto) (0.0 - 2.0 %) 0.5 Neut # (Auto) (2.0 - 7.6 x10 3/uL) 3.10 Lymph # (Auto) (1.0 - 3.8 x10 3/uL) 0.28 L [place] # (Auto) (0.1 - 0.8 x10 3/uL) 0.37 Eos # (Auto) (0.0 - 0.2 x10 3/uL) 0.07 Baso # (Auto) (0.0 - 0.2 x10 3/uL) 0.02 Abs Immat Gran (auto) (0.00 - 0.03 0.02x10 3/uL) Add Manual Diff NO Immature Gran % (0.0 - 2.0 %) 0.5 Nucleated RBC % (0 - 0 %) 0.0 Nucleated RBCs # (Man) (0.0 - 0.1 0.00x10 3/uL) Retic Count (auto) (0.3 - 2.3 %) 5.9 H 04/14 04/14 1106 1023 Chemistry POC Glucose (70 - 110 MG/DL) 209 H Coagulation Heparin Anti-Xa, LM Wt (0.60 - 1.00 IU/mL) 0.96 Diagnosis, Assessment PlanFree Text A P:73 year old male with acute on chronic respiratory failure, elevated D-dimer, JERAMY on CKD, recent CABG and weakness. Continue with PT/OT. Recommend IRF placement for his ongoing medical and rehabilitation needs. He is willing to stay here at [facility]. 04/14: Continue with therapy as tolerated. Pending IRF transfer. Encouraged increased time EOB/OOB to build endurance, balance and strength.04/15: Gi cleared to start on anticoagulation given LUIS servin. Cr stable and trending down. Hematology consulted due to leukopenia along with anemia. Pt noted with elevated retic count. ? may need bone marrow bx. PT/OT continued. OOBdaily. Rehab attestation:Face to face exam completed. Treatment plan discussed with patient. at 2134 RPT #:[id number] OF REPORTPRProgress [id number]:34:00G.[id number] able for patient ewwsNAUZNWUSMYAEVJ8562-50-29F87:34:35 [facility] 2023-04-15 08:06:00 [id number]ORue HKkOBskX/K2s3b4RHGEbQ1oFDpq6650-94-14B01:06:00 [facility] ([facility])Nephrology Progress NoteREPORT#:[id number] REPORT STATUS: SignedDATE:04/15/23 TIME: 805 PATIENT: TEVIN NYE UNIT #: [id number]#: [id number] [address] [birth year] AGE: 73 SEX: M ATTEND: Pablo Kumar AUTHOR: Glendy Paz MD * ALL edits or amendments must be made on the electronic/computer document * SubjectiveChief complaint:Follow-up of acute renal failure, ATN/AINComments:Breathing better Objective GeneralVS/I O:Vital Signs: Date Time Temp Pulse Resp B/P B/P Pulse O2 O2 Flow FiO2 Mean Ox Delivery Rate 04/15 0652 98.2 57 17 120/63 82.1 93 04/15 0528 84 139/76 97 04/15 0456 98.2 64 16 116/63 80.7 97 Room air 04/15 0227 98.4 60 16 146/85 105.5 95 Nasal cannula 04/14 2250 59 14 134/72 92 98 Nasal 2 cannula 04/14 2057 99 Nasal 2 cannula 04/14 2031 98.2 39 16 126/51 76.2 92 Nasal cannula 04/14 2000 Nasal 2 cannula 04/14 1557 98.1 47 17 137/76 96.5 93 04/14 1107 98.1 69 17 153/70 97.5 98 04/14 0930 Nasal 2 cannula 04/14 0850 100 Nasal 3 cannula 24 hour I O ending at 0700: 04/15 0700 04/14 1900 Intake Total Output Total 800 Balance -800 Output, Urine 800 PATIENT WEIGHT: Weight (lb): Weight (oz): Weight (kg): 86.200 MedicationsActive Meds + DC'd Last 24 HrsFurosemide (LASIX 20MG INJ) 20 MG ONCE ONE IV (DC) Amiodarone HCl (CORDARONE) 200 MG DAILY PO Magnesium Sulfate (MAGNESIUM SULFATE 4GM/SWFI 100ML) 100 ML ONCE ONE IV (DC) Enoxaparin Sodium (lovENOX) 85 MG Q12H SUBQ Metoprolol Tartrate (LOPRESSOR) 25 MG Q8HR PO Atorvastatin Calcium (LIPITOR) 40 MG 2100 PO Lactulose (LACTULOSE) 20 GM BID PRN PRN PO Miscellaneous Information (LOVENOX PHARMACY TO DOSE) 1 EACH ASDIR SUBQ (CKD) Sterile Water (WATER FOR IRRIGATION) DRESSING CHANGE ASDIR PRN IRR Aspirin (ASPIRIN) 81 MG DAILY PO Fluoxetine HCl (PROzac) 10 MG QAM PO Insulin Human Lispro (HUMALOG) 0 AC HS SUBQ Albuterol/Ipratropium (DUONEB) 3 ML RTQ4H NEB Tamsulosin HCl (Flomax 0.4 mg) 0.8 MG BEDTIME PO Acetaminophen (TYLENOL) 650 MG Q4H PRN PRN PO Ondansetron HCl (ZOFRAN) 4 MG Q4H PRN PRN IV Physical ExamGeneral appearance: alert, awake, oriented, no acute distressHead/eyes: atraumatic, normocephalicENT: moist mucous membranesNeck: supple/no meningismus, no JVDCardiovascular: normal heart sounds, no rubRespiratory: crackles (AT BASES)Genitourinary: no bladder distentionExtremities: no edemaNeuro/SALES ASSISTANT: alert, oriented X 3Ulcer: Type/cause: scab left foot. ResultsFindings/Data:Laboratory Tests 04/15 04/14 04/14 04/14 0651 9 1626 1106 Chemistry POC Glucose (70 - 110 MG/DL) 207 H 204 H 215 H 209 H Laboratory Tests 04/14 1023 Coagulation Heparin Anti-Xa, LM Wt (0.60 - 1.00 IU/mL) 0.96 Laboratory Tests 04/15 04/15 0615 0615 Hematology WBC (4.5 - 11.0 x10 3/uL) 3.9 L RBC (4.00 - 5.60 x10 6/uL) 2.72 L Hgb (12.5 - 16.9 g/dL) 8.0 L Hct (37.5 - 50.7 %) 25.6 L MCV (81.0 - 99.0 fL) 94.1 MCH (27.0 - 33.0 pg) 29.4 MCHC (33.0 - 37.0 g/dL) 31.3 L RDW (11.5 - 14.5 %) 17.6 H Plt Count (150 - 400 x10 3/uL) 164 MPV (7.0 - 9.0 fL) 11.0 H Neut % (Auto) (56.0 - 77.0 %) 80.3 H Lymph % (Auto) (14.0 - 32.0 %) 7.3 L [place] % (Auto) (4.8 - 9.0 %) 9.6 H Eos % (Auto) (0.3 - 3.7 %) 1.8 Baso % (Auto) (0.0 - 2.0 %) 0.5 Neut # (Auto) (2.0 - 7.6 x10 3/uL) 3.10 Lymph # (Auto) (1.0 - 3.8 x10 3/uL) 0.28 L [place] # (Auto) (0.1 - 0.8 x10 3/uL) 0.37 Eos # (Auto) (0.0 - 0.2 x10 3/uL) 0.07 Baso # (Auto) (0.0 - 0.2 x10 3/uL) 0.02 Abs Immat Gran (auto) (0.00 - 0.03 x10 3/uL) 0.02 Add Manual Diff NO Immature Gran % (0.0 - 2.0 %) 0.5 Nucleated RBC % (0 - 0 %) 0.0 Nucleated RBCs # (Man) (0.0 - 0.1 x10 3/uL) 0.00 Retic Count (auto) (0.3 - 2.3 %) 5.9 H Diagnosis, Assessment PlanFree Text A P:Assessment/plan:1. Acute renal failure most likely secondary to volume depletion, overdiuresis and ATN/AIN with Bactrim and lisinopril on board. Cr further better 2.9-2.4-1.9> 1.2 >1.3, stable today, renal sono without hydronephrosisLasix 20 mg IV x1 today 2. Coronary artery disease: Status post CABG, continue home medications 3. COPD: Symptomatic treatment 4. History of prostate cancer, s/p radiation 2021 5. Anemia: Requested stool occult blood-not sent yet, and iron studies reviewed-ok, transfuse as needed for hemoglobin less than 7. hgb 8.0 pending rehab. stable from nephrology for discharge. at 1624 RPT #:[id number] OF REPORTPRProgress [id number]:06:00G.[id number] able for patient tvboGONEZFQFMOKPVI5039-19-59L25:24:43 [facility] 2023-04-14 23:05:00 [id number] aIIRVnDvr6Kqjm9XoPTdnzgMNlhjR lAYUmbiMAracxMuxd+pOr6l4EAw9292-14-82X14:05:00 [facility] ([facility]/Oncology Consult NoteREPORT#:[id number] REPORT STATUS: SignedDATE:04/14/23 TIME: 2305 PATIENT: TEVIN NYE UNIT #: [id number]#: [id number] [address] [birth year] AGE: 73 SEX: M [facility]END[facility] Pablo [facility] AUTHOR: Dakota Arvizu MD * ALL edits or amendments must be made on the electronic/computer document * History of Present IllnessRequesting clinician: Robert Hidalgo for consult:Severe anemia, patient on anti-coagulation.Chief complaint:SOB.HPI:This is a 73-year-old man with past medical history remarkable pulmonary embolism in November 2022 for which he was treated with Eliquis which she continuedthrough February 2023 at which point a repeat CT of the chest that was negative and therefore Eliquis was discontinued, coronary artery disease, status post 2 coronary artery bypass graft surgery in February 2023. He also has a history of prostate cancer for which she underwent radiation in 2021, COPD with home oxygen. He presented to the hospital with complaints of progressively worseningshortness of breath. Patient was found to be in acute kidney insufficiency and therefore could not undergo a CT angiogram of the chest. He did have a VQ scan performed which showed intermediate probability for PE. Has been thought to have likely recurrent pulmonary embolism and therefore has been continued on anticoagulation. He is currently also being treated for COPD. There is a right lower lobe nodule, 1.5 x [address] of the chest from 03/03/2023 which will require a follow-up in 3 months. His hospital course is also complicated by the development of blood per rectum for which GI has been consulted. GI recommends continuation of Eliquis as the benefits outweigh the risks. This hematology consultation has been requested as patient has been found to be anemic. He had initially presented with a hemoglobin of 7.6, improving to 9.7 but dropping again to 8.0 today. Patient has not had any obvious GI bleed. Apparently his last EGD and colonoscopy were about 6 years ago. His last PRBC transfusion was in February 2023. Patient did have iron panel performed which showed serum iron of 47 TIBC 204 iron saturation of 23% and serum ferritin of 255.2. History - Adult longitudinalPast medical history:Reports: COPD, Diabetes mellitus, Hypertension, BPH, Dyslipidemia. Additional medical history:CAD s/p CABG 2022 Pulmonary embolism 2022 COPD Prostate cancer s/p radiation 2021 Hypertension Hyperlipidemia Diabetes Knee surgery Carotid artery stenosis CKDPast surgical history:Reports: Knee procedure, Lung surgery (collapsed lung). Additional surgical history:knee surgeryAdditional family history:noneAlcohol use: Denies EtOH useDrug use: Denies recreational drugsSmoking status for patients 13 years old or older: Former SmokerAdditional social history:LIVES AT HOME ALONE. HIS YOUNGER BROTHER LIVES A[address]OSS [address]. [place]. NO STAIRS. HE WAS IND PLOF. NO DME USED . OCCASSIONAL CANE USED. NO OXYGENMedications:Home Medications:Medication Dose/Rte/Freq Days Qty Entered Last Max Daily Dose Reviewed OXYBUTYNIN (DITROPAN) 5 MG PO BID 03/03/23 04/08/23Strength: 5 MG TAB 1937 1837 FLUoxetine (PROzac) 10 MG PO QAM 03/03/23 04/08/23Strength: 10 MG CAP 1938 1842 LATANOPROST 1 DROP EACH EYE 03/03/23 04/08/23 (XALATAN 0.005% OPHTH BEDTIME 1939 1843 SOLN)Strength: 0.005 %OPHTH.SOLN INSULIN LISPRO 6 03/03/23 04/08/23 (HumaLOG KWIKPEN (3mL)) 1942 1844Strength: 100 UNIT/MLINSULN.PEN CALCIUM CARBONATE/VIT 2 TAB PO DAILY 03/03/23 04/08/23 D3 1944 1836 (CALCIUM CARB/VIT D3 500 MG/200 UNITS)Strength: 500 MGCALCIUM-5 MCG (200 UNIT)TAB CYANOCOBALAMIN 100 MCG PO DAILY 03/03/23 04/08/23 (VITAMIN B-12) 1944 1843Strength: 100 MCG TAB TAMSULOSIN ER (FLOMAX) 0.8 MG PO BEDTIME 2 03/03/23 04/08/23Strength: 0.4 MG 1938 1838CAP.SR.24H INSULIN LISPRO (HumaLOG) 30 03/03/23 04/08/23Strength: 100 UNIT/ML 1943 1844VIAL FUROSEMIDE (LASIX) 20 MG PO BID 04/08/23 04/08/23Strength: 20 MG TAB 184 184 BRIMONIDINE 1 DROP EACH EYE BID 04/08/23 04/08/23 (ALPHAGAN 0.2% OPHTH [id number] SOLN)Strength: 0.2 %OPHTH.SOLN SULFAMETHOXAZOLE/TMP 1 TAB PO BID 04/08/23 04/08/23 (BACTRIM DS 800/160 MG) 1847 1848Strength: 800 MG-160 MGTAB HYDROCHLOROTHIAZIDE 25 MG PO DAILY 04/08/23 04/08/23 (HYDRODIURIL) [id number]: 25 MG TAB LISINOPRIL (ZESTRIL) 20 MG PO DAILY 04/08/23 04/08/23Strength: 20 MG TAB 184 184 ATORVASTATIN (LIPITOR) 40 MG PO 2100 30 30 03/13/23 04/08/23Strength: 40 MG TAB 1446 1841 METOPROLOL TARTRATE 25 MG PO Q12HR 30 60 03/13/23 04/08/23 (LOPRESSOR) 1446 1842Strength: 25 MG TAB amLODIPine (NORVASC) 10 MG PO DAILY 30 30 03/13/23 04/08/23Strength: 10 MG TAB 1446 1842 ASPIRIN 81 MG PO DAILY 30 30 03/13/23 04/08/23Strength: 81 MG TAB.CHEW 1447 1836 Current Hospital Medications:Autonomic Drugs Sig/Yas Start time Last Medication Dose Route Stop Time Status Admin Albuterol/Ipratropium 3 ML RTQ4H 04/09 0000 AC 04/14 (DUONEB) NEB 05/09 0000 2056 Tamsulosin HCl 0.8 MG BEDTIME 04/08 2300 AC 04/14 (Flomax 0.4 mg) PO 05/08 Blood Formation,Coagulation Sig/Yas Start time Last Medication Dose Route Stop Time Status Admin Enoxaparin Sodium 85 MG Q12H 04/12 1800 AC 04/14 (lovENOX) SUBQ 05/12 1759 1733 Cardiovascular Drugs Sig/Yas Start time Last Medication Dose Route Stop Time Status Admin Amiodarone HCl 200 MG DAILY 04/14 0900 AC 04/14 (CORDARONE) PO 05/14 0859 0921 Metoprolol Tartrate 25 MG Q8HR 04/10 1400 AC 04/14 (LOPRESSOR) PO 05/08 2259 1532 Atorvastatin Calcium 40 MG 2100 04/09 2100 AC 04/14 (LIPITOR) PO 05/09 2059 2248 Central Nervous System Agents Sig/Yas Start time Last Medication Dose Route Stop Time Status Admin Magnesium Sulfate 100 ML ONCE ONE 04/14 0745 DC 04/14 (MAGNESIUM SULFATE IV 04/14 1144 0919 4GM/SWFI 100ML) Aspirin 81 MG DAILY 04/09 1015 AC 04/14 (ASPIRIN) PO 05/09 1014 0920 Fluoxetine HCl 10 MG QAM 04/09 0900 AC 04/14 (PROzac) PO 05/09 0859 0921 Acetaminophen 650 MG Q4H PRN PRN 04/08 1800 AC 04/13 (TYLENOL) PO 05/08 1759 2147 Electrolytic, Caloric, And Agata Sig/Yas Start time Last Medication Dose Route Stop Time Status Admin Furosemide 20 MG ONCE ONE 04/14 1415 DC 04/14 (LASIX 20MG INJ) IV 04/14 1416 1533 Lactulose 20 GM BID PRN PRN 04/09 1900 AC 04/09 (LACTULOSE) PO 05/09 1859 1933 Sterile Water See Dose ASDIR PRN 04/09 1230 AC (WATER FOR Insts (1) IRR 05/09 1229 IRRIGATION) Gastrointestinal Drugs Sig/Yas Start time Last Medication Dose Route Stop Time Status Admin Ondansetron HCl 4 MG Q4H PRN PRN 04/08 1800 AC (ZOFRAN) IV 05/08 1759 Hormones And Synthetic Substit Sig/Yas Start time Last Medication Dose Route Stop Time Status Admin Insulin Human Lispro 0 AC HS 04/09 0730 AC 04/14 (HUMALOG) SUBQ 05/09 0729 1732 Other Sig/Yas Start time Last Medication Dose Route Stop Time Status Admin Miscellaneous 1 EACH ASDIR 04/09 1530 CKD Information SUBQ 04/16 1529 ([facility] TO DOSE) Dose Instructions:(1)Sterile Water (WATER FOR IRRIGATION): DRESSING CHANGE Allergies:Coded Allergies:Penicillins (USE COMMENT BUTTON 03/03/23) PT STATES THAT HE WAS JUST TOLD THAT HE'S ALLERGIC TO PENICILLIN AND ITS NOT GONNA WORK FOR HIM Objective Physical ExamVS:Vital Signs Date Temp Pulse Resp B/P B/P Mean Pulse Ox FiO2 04/14 36.7-36.8 39-86 14-17 108-153/51-79 71.7-100.3 92-100 Last Documented: Result Date Time Pulse Ox 98 04/14 2250 B/P 134/72 04/14 2250 B/P Mean 92 04/14 2250 O2 Delivery Nasal cannula 04/14 2250 O2 Flow Rate 2 04/14 225 Pulse 59 04/14 2250 Resp 14 04/14 2250 Temp 36.8 04/14 203 FiO2 28 04/10 0800 PATIENT WEIGHT: Weight (lb): Weight (oz): Weight (kg): 86.200 General appearance: alert, awakeHEENT: normocephalicNeck: full range of motion, non-tender, supple/no meningismus, no JVD, no lymphadenopathyCardiovascular: regular rate and rhythmRespiratory: decreased breath soundsAbdomen: non-tender, normal bowel sounds, soft, no distention, no guarding, no mass/organomegaly, no reboundExtremities: moves all, normal capillary refill, no edemaMusculoskeletal: full range of motion, normal inspectionNeuro/SALES ASSISTANT: alert, oriented X 3Ulcer: Type/cause: scab left foot. ResultsFindings/Data:Laboratory Tests 04/14/23 0454:[Embedded Image Not Available]Laboratory Tests 04/14 1626 1106 0719 0454Chemistry Sodium (134 - 147 mEq/L) 139 Potassium (3.4 - 5.0 mEq/L) 4.2 Chloride (100 - 108 mEq/L) 110 H Carbon Dioxide (21 - 33 mEq/l) 26 Anion Gap (0 - 20) 7 BUN (7 - 18 mg/dL) 16 Creatinine (0.6 - 1.3 mg/dL) 1.3 Glomerular Filtr Rate (70 - 80) 58.4 L Glucose (70 - 110 mg/dL) 208 H POC Glucose (70 - 110 MG/DL) 204 H 215 H 209 H 200 H Calcium (8.0 - 10.5 mg/dL) 8.3 Ionized Calcium [place] (1.09 - 1.30 1.16MMOL/L) Magnesium (1.80 - 2.40 mg/dL) 1.39 L Total Bilirubin (0.0 - 1.0 mg/dL) 0.20 AST (15 - 37 IUnit/L) 17 ALT (30 - 65 IUnit/L) 19 L Total Alk Phosphatase (20 - 125 80IUnit/L) Total Protein (6.4 - 8.2 g/dL) 5.6 L Albumin (3.4 - 5.0 g/dL) 2.50 L Laboratory Tests 04/14 1023 Coagulation Heparin Anti-Xa, LM Wt (0.60 - 1.00 IU/mL) 0.96 Laboratory Tests 04/14 0454 Hematology WBC (4.5 - 11.0 x10 3/uL) 3.5 L RBC (4.00 - 5.60 x10 6/uL) 2.72 L Hgb (12.5 - 16.9 g/dL) 8.0 L Hct (37.5 - 50.7 %) 25.5 L MCV (81.0 - 99.0 fL) 93.8 MCH (27.0 - 33.0 pg) 29.4 MCHC (33.0 - 37.0 g/dL) 31.4 L RDW (11.5 - 14.5 %) 16.8 H Plt Count (150 - 400 x10 3/uL) 158 MPV (7.0 - 9.0 fL) 10.6 H Neut % (Auto) (56.0 - 77.0 %) 78.5 H Lymph % (Auto) (14.0 - 32.0 %) 9.7 L [place] % (Auto) (4.8 - 9.0 %) 8.6 Eos % (Auto) (0.3 - 3.7 %) 1.4 Baso % (Auto) (0.0 - 2.0 %) 0.9 Neut # (Auto) (2.0 - 7.6 x10 3/uL) 2.74 Lymph # (Auto) (1.0 - 3.8 x10 3/uL) 0.34 L [place] # (Auto) (0.1 - 0.8 x10 3/uL) 0.30 Eos # (Auto) (0.0 - 0.2 x10 3/uL) 0.05 Baso # (Auto) (0.0 - 0.2 x10 3/uL) 0.03 Abs Immat Gran (auto) (0.00 - 0.03 x10 3/uL) 0.03 Add Manual Diff NO Immature Gran % (0.0 - 2.0 %) 0.9 Nucleated RBC % (0 - 0 %) 0.0 Nucleated RBCs # (Man) (0.0 - 0.1 x10 3/uL) 0.00 Radiology data:Current Medications Sig/Yas Start time Last Medication Dose Route Stop Time Status Admin Furosemide 20 MG ONCE ONE 04/14 1415 DC 04/14 IV 04/14 1416 1533 Amiodarone HCl 200 MG DAILY 04/14 0900 AC 04/14 PO 05/14 0859 0921 Magnesium Sulfate 100 ML ONCE ONE 04/14 0745 DC 04/14 IV 04/14 1144 0919 Enoxaparin Sodium 85 MG Q12H 04/12 1800 AC 04/14 SUBQ 05/12 1759 1733 Metoprolol Tartrate 25 MG Q8HR 04/10 1400 AC 04/14 PO 05/08 2259 1532 Atorvastatin Calcium 40 MG 2100 04/09 2100 AC 04/14 PO 05/09 2059 2248 Lactulose 20 GM BID PRN PRN 04/09 1900 AC 04/09 PO 05/09 1859 1933 Miscellaneous 1 EACH ASDIR 04/09 1530 CKD Information SUBQ 04/16 1529 Sterile Water See Dose ASDIR PRN 04/09 1230 AC Insts (1) IRR 05/09 1229 Aspirin 81 MG DAILY 04/09 1015 AC 04/14 PO 05/09 1014 0920 Fluoxetine HCl 10 MG QAM 04/09 0900 AC 04/14 PO 05/09 0859 0921 Insulin Human Lispro 0 AC HS 04/09 0730 AC 04/14 SUBQ 05/09 0729 1732 Albuterol/Ipratropium 3 ML RTQ4H 04/09 0000 AC 04/14 NEB 05/09 0000 205 Tamsulosin HCl 0.8 MG BEDTIME 04/08 2300 AC 04/14 PO 05/08 225 224 Acetaminophen 650 MG Q4H PRN PRN 04/08 1800 AC 04/13 PO 05/08 175 2147 Ondansetron HCl 4 MG Q4H PRN PRN 04/08 1800 AC IV 05/08 175 Dose Instructions:(1)Sterile Water: DRESSING CHANGE Results: labs reviewed, vital signs reviewed Diagnosis, Assessment PlanFree Text A P:ASSESSMENT:* Normocytic, hypochromic anemia. This seems to be an anemia of chronic disease. With iron panel being normal it is less likely to be GI blood loss. Considering his leukopenia I suspect that he may be developing underlying primary bone marrow disease such as MDS.* Recurrent pulmonary embolism based on intermediate probability VQ scan.* History of coronary artery disease, status post 2 coronary artery bypass graftsurgery. PLAN:* Complete anemia work-up by ordering reticulocyte count, haptoglobin, direct Ivet test, LDH, B12, serum folate and serum protein electrophoresis.* We will consider patient for a bone marrow aspiration and biopsy.* Monitor CBC.* Patient may need to continue with anticoagulation considering benefits more than the risk.* Apparently his lower GI bleed is associated with constipation.* I will continue to follow.* Thank you very much for this consultation. at 2327 RPT #:[id number] OF REPORTIESmucowgpfbak9395-88-05E58:05:00G.PDOC2 [id number] for patient [id number]:27:18 [facility] 2023-04-14 21:57:00 [id number] LISA+hEg5pDy2Z/rq6KGSwPKfVa1mk gZOsovFMSatEnjJY369o8PikNvs4405-29-21Q06:57:00 [facility])Podiatry Progress NoteREPORT#:[id number] REPORT STATUS: SignedDATE:04/14/23 TIME: 2156 PATIENT: TEVIN NYE UNIT #: [id number]#: [id number] [address]DOB: [birth year] AGE: 73 SEX: M ATTEND: Pablo Kumar MDADM AUTHOR: Andres Rachel DPM * ALL edits or amendments must be made on the electronic/computer document * SubjectiveChief complaint:left foot ulcerPatient reports: no confusion, no dizziness, no headache, no heartburnComments:pt very pleasant. doesnt have prevalon boots.is interested. dressing had fallen off of the foot. pt has pain. only takes tylenol. events notes. states PT done and went well Objective GeneralVS:Last Documented: Result Date Time Pulse Ox 99 04/14 2057 O2 Delivery Nasal cannula 04/14 2057 O2 Flow Rate 2 04/14 2057 B/P 126/51 04/14 2031 B/P Mean 76.2 04/14 2031 Temp 36.8 04/14 2031 Pulse 39 04/14 2031 Resp 16 04/14 2031 FiO2 28 04/10 800 PATIENT WEIGHT: Weight (lb): Weight (oz): Weight (kg): 86.200 Medications:Active Meds + DC'd Last 24 HrsFurosemide (LASIX 20MG INJ) 20 MG ONCE ONE IV (DC) Amiodarone HCl (CORDARONE) 200 MG DAILY PO Magnesium Sulfate (MAGNESIUM SULFATE 4GM/SWFI 100ML) 100 ML ONCE ONE IV (DC) Enoxaparin Sodium (lovENOX) 85 MG Q12H SUBQ Metoprolol Tartrate (LOPRESSOR) 25 MG Q8HR PO Atorvastatin Calcium (LIPITOR) 40 MG 2100 PO Lactulose (LACTULOSE) 20 GM BID PRN PRN PO Miscellaneous Information ([facility] TO DOSE) 1 EACH ASDIR SUBQ (CKD) Sterile Water (WATER FOR IRRIGATION) DRESSING CHANGE ASDIR PRN IRR Aspirin (ASPIRIN) 81 MG DAILY PO Fluoxetine HCl (PROzac) 10 MG QAM PO Insulin Human Lispro (HUMALOG) 0 AC HS SUBQ Albuterol/Ipratropium (DUONEB) 3 ML RTQ4H NEB Tamsulosin HCl (Flomax 0.4 mg) 0.8 MG BEDTIME PO Acetaminophen (TYLENOL) 650 MG Q4H PRN PRN PO Ondansetron HCl (ZOFRAN) 4 MG Q4H PRN PRN IV I O:24 hour I O ending at 0700: 04/14 0700 04/13 1900 Intake Total 75.00 Output Total 325 Balance -250.00 Intake, IV 75.00 Output, Urine 325 Dietitian nutrition assessmentThe data set between the solid lines has been imported from the dietitian's assessment. BMI Calculated: 29.8Nutrition related diagnosis: Nutrition diagnosis details: Nutrition problem: Nutrition etiology: Nutrition signs and symptoms: Nutrition prescription: Dietitian name: Assessment completed: Physical ExamGeneral appearance: alert, awake, oriented, conversational, mental status normalWound/incision: Location:bilat foot Site condition: small pinpoint ulcer right foot. ulcer left forefoot dorsal. partial and full thickness. no erythema. no depth.LE vascular pulse assess:Nonpalpable R posterior tibialis, Nonpalpable L posterior tibialis, Nonpalpable R dorsalis pedis, Nonpalpable L dorsalis pedis ResultsFindings/Data:Laboratory Tests: 04/14 04/14 04/14 04/14 04/14 2029 1626 1106 1023 0719Chemistry POC Glucose (70 - 110 MG/DL) 204 H 215 H 209 H 200 HCoagulation Heparin Anti-Xa, LM Wt (0.60 - 1.00 IU/mL) 0.96 04/14 0454 Chemistry Sodium (134 - 147 mEq/L) 139 Potassium (3.4 - 5.0 mEq/L) 4.2 Chloride (100 - 108 mEq/L) 110 H Carbon Dioxide (21 - 33 mEq/l) 26 Anion Gap (0 - 20) 7 BUN (7 - 18 mg/dL) 16 Creatinine (0.6 - 1.3 mg/dL) 1.3 Glomerular Filtr Rate (70 - 80) 58.4 L Glucose (70 - 110 mg/dL) 208 H Calcium (8.0 - 10.5 mg/dL) 8.3 Ionized Calcium [place] (1.09 - 1.30 MMOL/L) 1.16 Magnesium (1.80 - 2.40 mg/dL) 1.39 L Total Bilirubin (0.0 - 1.0 mg/dL) 0.20 AST (15 - 37 IUnit/L) 17 ALT (30 - 65 IUnit/L) 19 L Total Alk Phosphatase (20 - 125 IUnit/L) 80 Total Protein (6.4 - 8.2 g/dL) 5.6 L Albumin (3.4 - 5.0 g/dL) 2.50 L Hematology WBC (4.5 - 11.0 x10 3/uL) 3.5 L RBC (4.00 - 5.60 x10 6/uL) 2.72 L Hgb (12.5 - 16.9 g/dL) 8.0 L Hct (37.5 - 50.7 %) 25.5 L MCV (81.0 - 99.0 fL) 93.8 MCH (27.0 - 33.0 pg) 29.4 MCHC (33.0 - 37.0 g/dL) 31.4 L RDW (11.5 - 14.5 %) 16.8 H Plt Count (150 - 400 x10 3/uL) 158 MPV (7.0 - 9.0 fL) 10.6 H Neut % (Auto) (56.0 - 77.0 %) 78.5 H Lymph % (Auto) (14.0 - 32.0 %) 9.7 L [place] % (Auto) (4.8 - 9.0 %) 8.6 Eos % (Auto) (0.3 - 3.7 %) 1.4 Baso % (Auto) (0.0 - 2.0 %) 0.9 Neut # (Auto) (2.0 - 7.6 x10 3/uL) 2.74 Lymph # (Auto) (1.0 - 3.8 x10 3/uL) 0.34 L [place] # (Auto) (0.1 - 0.8 x10 3/uL) 0.30 Eos # (Auto) (0.0 - 0.2 x10 3/uL) 0.05 Baso # (Auto) (0.0 - 0.2 x10 3/uL) 0.03 Abs Immat Gran (auto) (0.00 - 0.03 x10 3/uL) 0.03 Add Manual Diff NO Immature Gran % (0.0 - 2.0 %) 0.9 Nucleated RBC % (0 - 0 %) 0.0 Nucleated RBCs # (Man) (0.0 - 0.1 x10 3/uL) 0.00 Diagnosis, Assessment PlanFree Text A P:ulcer left foot.painPVD ulcer is benign...starting to peelcontinue local wound care.no xray found.venous u/s neg NIAS: pvd as expected.rec'd to pt prevalon boots. covering for Dr. [place] at 2158 RPT #:[id number] OF REPORTPRProgress rgla4284-50-24Z25:57:00G.[id number] able for patient xdlnWVZIYWMWGXVYJR1087-92-06D81:59:13 [facility] 2023-04-14 14:58:00 [id number] O4XF2h+Qjns0qsR9rWLs22iqgm403 LYdGouRnq/he/XrupEOCuBy0ySM4496-37-36F88:58:00 [facility] ([facility])GE Consultation NoteREPORT#:[id number] REPORT STATUS: SignedDATE:04/14/23 TIME: 1457 PATIENT: TEVIN NYE UNIT #: [id number]#: [id number] [address] [birth year] AGE: 73 SEX: M ATTEND: Pablo Kumar [facility] AUTHOR: Clint Roman PA * ALL edits or amendments must be made on the electronic/computer document * Clint Roman 04/14/23 1458:History of Present IllnessHPI:Patient is a 73 year old male with a PMHx of CAD s/p CABG on 03/04/23, pulmonary embolism in November 2022, hx of prostate cancer s/p radiation therapy, completed in August 2022, hypertension, diabetes, and COPD on home oxygen who presented to the hospital on 04/08/23 with increasing dyspnea on exertion. VQ scan showed intermediate likelihood ratio for pulmonary embolism. Pulmonology was consulted and started on lovenox for concerns for recurrent PE. GI consulted for clearancefor anticoagulation with eliquis. Patient was initially found to have a PE in November 2022, he was on eliquis till about the end of February, he had a repeat CTA that was negative, and was told to discontinue anticoagulation. He states he didnot have any signficant issues with bleeding while on eliquis. He says he occasionally has mild rectal bleeding, but only upon wiping. He may go multiple days without having a bowel movement, and then when he has a bm he may notice some bleeding. He denies any significant history of gi bleeding. He had a prior blood transfusion in the past during heart surgery, but states he never had a gibleed requiring transfusion. Last egd and colonoscopy were about 6 years ago. EGD showed a hiatal hernia, otherwise ok. Colonoscopy was reportedly umremarkable. He was also on aspirin and plavix following recent CABG. Now during this admission, patient is on aspirin and lovenox, plavix was discontinued. Currently, patient reports rectal bleeding has resolved, he had a BM this morning. He denies any nausea, vomiting, abdominal pain, melena, or hematemesis. History - Adult longitudinalPast medical history:Reports: COPD, Diabetes mellitus, Hypertension, BPH, Dyslipidemia. Additional medical history:CAD s/p CABG 2022 Pulmonary embolism 2022 COPD Prostate cancer s/p radiation 2021 Hypertension Hyperlipidemia Diabetes Knee surgery [facility]id [facility]Past [facility] history:Reports: Knee procedure, Lung surgery (collapsed lung). Additional surgical history:knee surgeryAdditional family history:noneAlcohol use: Denies EtOH useDrug use: Denies recreational drugsSmoking status for patients 13 years old or older: Former SmokerAdditional social history:LIVES AT HOME ALONE. HIS YOUNGER BROTHER LIVES ACROSS THE STRE[address]. [place]. NO STAIRS. HE WAS IND PLOF. NO DME USED . OCCASSIONAL CANE USED. NO OXYGENMedications:Home Medications:Medication Dose/Rte/Freq Days Qty Entered Last Max Daily Dose Reviewed OXYBUTYNIN (DITROPAN) 5 MG PO BID 03/03/23 04/08/23Strength: 5 MG TAB 1937 1837 FLUoxetine (PROzac) 10 MG PO QAM 03/03/23 04/08/23Strength: 10 MG CAP 1938 1842 LATANOPROST 1 DROP EACH EYE 03/03/23 04/08/23 (XALATAN 0.005% OPHTH BEDTIME 1939 1843 SOLN)Strength: 0.005 %OPHTH.SOLN INSULIN LISPRO 6 03/03/23 04/08/23 (HumaLOG KWIKPEN (3mL)) 1942 1844Strength: 100 UNIT/MLINSULN.PEN CALCIUM CARBONATE/VIT 2 TAB PO DAILY 03/03/23 04/08/23 D3 1944 1836 (CALCIUM CARB/VIT D3 500 MG/200 UNITS)Strength: 500 MGCALCIUM-5 MCG (200 UNIT)TAB CYANOCOBALAMIN 100 MCG PO DAILY 03/03/23 04/08/23 (VITAMIN B-12) 1944 1843Strength: 100 MCG TAB TAMSULOSIN ER (FLOMAX) 0.8 MG PO BEDTIME 2 03/03/23 04/08/23Strength: 0.4 MG 1938 1838CAP.SR.24H INSULIN LISPRO (HumaLOG) 30 03/03/23 04/08/23Strength: 100 UNIT/ML 1943 1844VIAL FUROSEMIDE (LASIX) 20 MG PO BID 04/08/23 04/08/23Strength: 20 MG TAB 1840 1840 BRIMONIDINE 1 DROP EACH EYE BID 04/08/23 04/08/23 (ALPHAGAN 0.2% OPHTH 1845 1848 SOLN)Strength: 0.2 %OPHTH.SOLN SULFAMETHOXAZOLE/TMP 1 TAB PO BID 04/08/23 04/08/23 (BACTRIM DS 800/160 MG) 1847 1848Strength: 800 MG-160 MGTAB HYDROCHLOROTHIAZIDE 25 MG PO DAILY 04/08/23 04/08/23 (HYDRODIURIL) 1848 184Strength: 25 MG TAB LISINOPRIL (ZESTRIL) 20 MG PO DAILY 04/08/23 04/08/23Strength: 20 MG TAB 1849 184 ATORVASTATIN (LIPITOR) 40 MG PO 2100 30 30 03/13/23 04/08/23Strength: 40 MG TAB 1446 1841 METOPROLOL TARTRATE 25 MG PO Q12HR 30 60 03/13/23 04/08/23 (LOPRESSOR) 1446 1842Strength: 25 MG TAB amLODIPine (NORVASC) 10 MG PO DAILY 30 30 03/13/23 04/08/23Strength: 10 MG TAB 1446 184 ASPIRIN 81 MG PO DAILY 30 30 03/13/23 04/08/23Strength: 81 MG TAB.CHEW 1447 183 Allergies:Coded Allergies:Penicillins (USE COMMENT BUTTON 03/03/23) PT STATES THAT HE WAS JUST TOLD THAT HE'S ALLERGIC TO PENICILLIN AND ITS NOT GONNA WORK FOR HIM Review of SystemsAdditional notes:10 point ros neg except hpi Objective Physical ExamVS/I O:Last Documented: Result Date Time Pulse Ox 98 04/14 1107 B/P 153/70 04/14 1107 B/P Mean 97.5 04/14 1107 Temp 98.1 04/14 1107 Pulse 69 04/14 1107 Resp 17 04/14 1107 O2 Delivery Nasal cannula 04/14 0850 O2 Flow Rate 3 /07 0850 FiO2 28 / 0800 24 hour I O ending at 0700: 04/14 0700 04/13 1900 Intake Total 75.00 Output Total 325 Balance -250.00 Intake, IV 75.00 Output, Urine 325 PATIENT WEIGHT: Weight (lb): Weight (oz): Weight (kg): 86.200 Medications:Active Meds + DC'd Last 24 HrsFurosemide (LASIX 20MG INJ) 20 MG ONCE ONE IV (DC) Amiodarone HCl (CORDARONE) 200 MG DAILY PO Magnesium Sulfate (MAGNESIUM SULFATE 4GM/SWFI 100ML) 100 ML ONCE ONE IV (DC) Enoxaparin Sodium (lovENOX) 85 MG Q12H SUBQ Metoprolol Tartrate (LOPRESSOR) 25 MG Q8HR PO Atorvastatin Calcium (LIPITOR) 40 MG 2100 PO Lactulose (LACTULOSE) 20 GM BID PRN PRN PO Miscellaneous Information ([facility] TO DOSE) 1 EACH ASDIR SUBQ (CKD) Sterile Water (WATER FOR IRRIGATION) DRESSING CHANGE ASDIR PRN IRR Aspirin (ASPIRIN) 81 MG DAILY PO Fluoxetine HCl (PROzac) 10 MG QAM PO Insulin Human Lispro (HUMALOG) 0 AC HS SUBQ Albuterol/Ipratropium (DUONEB) 3 ML RTQ4H NEB Tamsulosin HCl (Flomax 0.4 mg) 0.8 MG BEDTIME PO Acetaminophen (TYLENOL) 650 MG Q4H PRN PRN PO Hydrocodone Bitart/Acetaminophen (NORCO 5/325) 1 TAB Q4H PRN PRN PO (DC) Morphine Sulfate (morphine SULFATE) 4 MG Q4H PRN PRN IV (DC) Ondansetron HCl (ZOFRAN) 4 MG Q4H PRN PRN IV General appearance: alert, awake, orientedHEENT: atraumatic, normocephalicNeck: full range of motionCardiovascular: normal heart sounds, regular rate rhythmRespiratory: no distress, on oxygenAbdomen: non-tender, normal bowel sounds, soft, no distentionExtremities: decreased range of motionNeuro/SALES ASSISTANT: alert, oriented X 3Skin: dry, intactUlcer: Type/cause: scab left foot.Psychiatry: normal affect, normal judgment/insight ResultsFindings/Data:Laboratory Tests 04/14/23 0454:[Embedded Image Not Available]Laboratory Tests 04/14 04/14 04/14 04/13 04/13 1106 0719 0454 2140 1619Chemistry Sodium (134 - 147 mEq/L) 139 Potassium (3.4 - 5.0 mEq/L) 4.2 Chloride (100 - 108 mEq/L) 110 H Carbon Dioxide (21 - 33 mEq/l) 26 Anion Gap (0 - 20) 7 BUN (7 - 18 mg/dL) 16 Creatinine (0.6 - 1.3 mg/dL) 1.3 Glomerular Filtr Rate (70 - 80) 58.4 L Glucose (70 - 110 mg/dL) 208 H POC Glucose (70 - 110 MG/DL) 209 H 200 H 223 H 135 H Calcium (8.0 - 10.5 mg/dL) 8.3 Ionized Calcium [place] (1.09 - 1.30 1.16MMOL/L) Magnesium (1.80 - 2.40 mg/dL) 1.39 L Total Bilirubin (0.0 - 1.0 mg/dL) 0.20 AST (15 - 37 IUnit/L) 17 ALT (30 - 65 IUnit/L) 19 L Total Alk Phosphatase (20 - 125 80IUnit/L) Total Protein (6.4 - 8.2 g/dL) 5.6 L Albumin (3.4 - 5.0 g/dL) 2.50 L Laboratory Tests 04/14 1023 Coagulation Heparin Anti-Xa, LM Wt (0.60 - 1.00 IU/mL) 0.96 Laboratory Tests 04/14 0454 Hematology WBC (4.5 - 11.0 x10 3/uL) 3.5 L RBC (4.00 - 5.60 x10 6/uL) 2.72 L Hgb (12.5 - 16.9 g/dL) 8.0 L Hct (37.5 - 50.7 %) 25.5 L MCV (81.0 - 99.0 fL) 93.8 MCH (27.0 - 33.0 pg) 29.4 MCHC (33.0 - 37.0 g/dL) 31.4 L RDW (11.5 - 14.5 %) 16.8 H Plt Count (150 - 400 x10 3/uL) 158 MPV (7.0 - 9.0 fL) 10.6 H Neut % (Auto) (56.0 - 77.0 %) 78.5 H Lymph % (Auto) (14.0 - 32.0 %) 9.7 L [place] % (Auto) (4.8 - 9.0 %) 8.6 Eos % (Auto) (0.3 - 3.7 %) 1.4 Baso % (Auto) (0.0 - 2.0 %) 0.9 Neut # (Auto) (2.0 - 7.6 x10 3/uL) 2.74 Lymph # (Auto) (1.0 - 3.8 x10 3/uL) 0.34 L [place] # (Auto) (0.1 - 0.8 x10 3/uL) 0.30 Eos # (Auto) (0.0 - 0.2 x10 3/uL) 0.05 Baso # (Auto) (0.0 - 0.2 x10 3/uL) 0.03 Abs Immat Gran (auto) (0.00 - 0.03 x10 3/uL) 0.03 Add Manual Diff NO Immature Gran % (0.0 - 2.0 %) 0.9 Nucleated RBC % (0 - 0 %) 0.0 Nucleated RBCs # (Man) (0.0 - 0.1 x10 3/uL) 0.00 Microbiology Date/Time Procedure - Status Source Growth 04/13 1640 Occult Blood - COMP STOOL Radiology data:Recent Impressions:RADIOLOGY - XR CHEST 1 V 04/13 1720 Report Impression - Status: SIGNED Entered: 04/14/2023 0616 IMPRESSION: No acute cardiopulmonary abnormality.Impression By: Erasmo - Margarito Borges M.D. Diagnosis, Assessment Plan Free Text DxA P NotesFree Text DxA P Notes:Assessment dyspnea on exertionPE hx of prostate cancer, s/p radiation therapy anemia rectal bleeding, mild, resolved Patient is a 73 year old presented with dyspnea on exertion, being treated for recurrent PE, currently on lovenox. He denies any significant issues with gi bleeding when previously on eliquis for prior pulmonary embolism. He reports intermittent mild rectal bleeding and a history of prostate cancer with completion of radiation therapy. Currently, denies any further bleeding. Plan:- monitor h/h, transfuse as needed- monitor for further bleeding - diet as tolerated - agree with pulm recs, plans for eventual transition to eliquis - ok from gi standpoint to transition to eliquis, benefits > risks Roberto Galeano 04/16/23 1653:Attestations Physician AttestationAgree w/findings plan:Agree with the findings and plan as documented by Abel PRITCHARD; at 1704 at 1653 RPT #:[id number] OF [id number]:58:00G.PDOC2 [id number] for patient gcwmVNHIGODKGWLSTB3009-09-72Q72:04:38 [facility] 2023-04-14 12:10:00 [id number] lJzSDm2l9RUpAEkWMKbFIzRyhHxZv bGT4W98ouuwWL6seZIeTTZcEa1a2231-07-15P57:10:00 [facility] ([facility])Pulmonology Progress NoteREPORT#:[id number] REPORT STATUS: SignedDATE:04/14/23 TIME: 1210 PATIENT: TEVIN NYE UNIT #: [id number]#: [id number] [address] [birth year] AGE: 73 SEX: M ATTEND: Pablo Kumar [facility] AUTHOR: Sharmila Alan * ALL edits or amendments must be made on the electronic/computer document * SubjectiveComments:On NC, feels better, no new complaints ROSAll systems rev neg: except as marked Objective GeneralVS/I O:Last Documented: Result Date Time Pulse Ox 98 04/14 1107 B/P 153/70 04/14 1107 B/P Mean 97.5 04/14 1107 Temp 36.7 04/14 1107 Pulse 69 04/14 1107 Resp 17 04/14 1107 O2 Delivery Nasal cannula 04/14 0518 O2 Flow Rate 3 04/13 0902 FiO2 28 /03 0800 24 hour I O ending at 0700: 0807 0700 0806 1900 Intake Total 75.00 Output Total 325 Balance -250.00 Intake, IV 75.00 Output, Urine 325 PATIENT WEIGHT: Weight (lb): Weight (oz): Weight (kg): 86.200 Medications:Active Meds + DC'd Last 24 HrsAmiodarone HCl (CORDARONE) 200 MG DAILY PO Magnesium Sulfate (MAGNESIUM SULFATE 4GM/SWFI 100ML) 100 ML ONCE ONE IV (DC) Furosemide (LASIX 20MG INJ) 20 MG ONCE ONE IV (DC) Enoxaparin Sodium (lovENOX) 85 MG Q12H SUBQ Metoprolol Tartrate (LOPRESSOR) 25 MG Q8HR PO Atorvastatin Calcium (LIPITOR) 40 MG 2100 PO Lactulose (LACTULOSE) 20 GM BID PRN PRN PO Miscellaneous Information (LOVENOX PHARMACY TO DOSE) 1 EACH ASDIR SUBQ (CKD) Sterile Water (WATER FOR IRRIGATION) DRESSING CHANGE ASDIR PRN IRR Aspirin (ASPIRIN) 81 MG DAILY PO Fluoxetine HCl (PROzac) 10 MG QAM PO Insulin Human Lispro (HUMALOG) 0 AC HS SUBQ Albuterol/Ipratropium (DUONEB) 3 ML RTQ4H NEB Tamsulosin HCl (Flomax 0.4 mg) 0.8 MG BEDTIME PO Acetaminophen (TYLENOL) 650 MG Q4H PRN PRN PO Hydrocodone Bitart/Acetaminophen (NORCO 5/325) 1 TAB Q4H PRN PRN PO (DC) Morphine Sulfate (morphine SULFATE) 4 MG Q4H PRN PRN IV (DC) Ondansetron HCl (ZOFRAN) 4 MG Q4H PRN PRN IV Physical ExamGeneral appearance: alert, awake, oriented, no acute distressHead/eyes: atraumatic, normocephalic, PERRL, EOMINeck: no JVD, no lymphadenopathyCardiovascular: normal heart sounds, normal S1/S2, regular rate rhythmRespiratory/chest: decreased breath sounds, on oxygen, aerating well, symmetric expansionAbdomen: soft, no guardingExtremities: moves all, no clubbing, no cyanosis, no edemaNeuro/SALES ASSISTANT: CNII-XII intactSkin: dry, intactUlcer: Type/cause: scab left foot.Psychiatry: normal affect, normal judgment/insight, normal mood ResultsFindings/Data:Laboratory Tests 04/14/23 0454:[Embedded Image Not Available]Laboratory Tests 04/14 04/14 04/14 04/13 04/13 1106 0719 0454 2140 1619Chemistry Sodium (134 - 147 mEq/L) 139 Potassium (3.4 - 5.0 mEq/L) 4.2 Chloride (100 - 108 mEq/L) 110 H Carbon Dioxide (21 - 33 mEq/l) 26 Anion Gap (0 - 20) 7 BUN (7 - 18 mg/dL) 16 Creatinine (0.6 - 1.3 mg/dL) 1.3 Glomerular Filtr Rate (70 - 80) 58.4 L Glucose (70 - 110 mg/dL) 208 H POC Glucose (70 - 110 MG/DL) 209 H 200 H 223 H 135 H Calcium (8.0 - 10.5 mg/dL) 8.3 Ionized Calcium Breana (1.09 - 1.30 MMOL/L) 1.16 Magnesium (1.80 - 2.40 mg/dL) 1.39 L Total Bilirubin (0.0 - 1.0 mg/dL) 0.20 AST (15 - 37 IUnit/L) 17 ALT (30 - 65 IUnit/L) 19 L Total Alk Phosphatase (20 - 125 IUnit/L) 80 Total Protein (6.4 - 8.2 g/dL) 5.6 L Albumin (3.4 - 5.0 g/dL) 2.50 L Laboratory Tests 04/14 0454 Hematology WBC (4.5 - 11.0 x10 3/uL) 3.5 L RBC (4.00 - 5.60 x10 6/uL) 2.72 L Hgb (12.5 - 16.9 g/dL) 8.0 L Hct (37.5 - 50.7 %) 25.5 L MCV (81.0 - 99.0 fL) 93.8 MCH (27.0 - 33.0 pg) 29.4 MCHC (33.0 - 37.0 g/dL) 31.4 L RDW (11.5 - 14.5 %) 16.8 H Plt Count (150 - 400 x10 3/uL) 158 MPV (7.0 - 9.0 fL) 10.6 H Neut % (Auto) (56.0 - 77.0 %) 78.5 H Lymph % (Auto) (14.0 - 32.0 %) 9.7 L [place] % (Auto) (4.8 - 9.0 %) 8.6 Eos % (Auto) (0.3 - 3.7 %) 1.4 Baso % (Auto) (0.0 - 2.0 %) 0.9 Neut # (Auto) (2.0 - 7.6 x10 3/uL) 2.74 Lymph # (Auto) (1.0 - 3.8 x10 3/uL) 0.34 L [place] # (Auto) (0.1 - 0.8 x10 3/uL) 0.30 Eos # (Auto) (0.0 - 0.2 x10 3/uL) 0.05 Baso # (Auto) (0.0 - 0.2 x10 3/uL) 0.03 Abs Immat Gran (auto) (0.00 - 0.03 x10 3/uL) 0.03 Add Manual Diff NO Immature Gran % (0.0 - 2.0 %) 0.9 Nucleated RBC % (0 - 0 %) 0.0 Nucleated RBCs # (Man) (0.0 - 0.1 x10 3/uL) 0.00 Microbiology Date/Time Procedure - Status Source Growth 04/13 1640 Occult Blood - COMP STOOL Radiology data:Recent Impressions:RADIOLOGY - XR CHEST 1 V 04/13 1720 Report Impression - Status: SIGNED Entered: 04/14/2023 0616 IMPRESSION: No acute cardiopulmonary abnormality.Impression By: Erasmo - Margarito Borges M.D. Results: x-ray personally reviewed Diagnosis, Assessment PlanFree Text A P:Acute on chronic hypoxemic respiratory failure supplemental O2 as needed and wean as tolerated Pulmonary embolism Initially diagnosed in November 2022 at outside hospital; was on Eliquis from diagnosis through February. CTA chest 03/03/2023 was negative for pulmonary embolism. Patient was discharged home 03/13/2023 and told to discontinue taking Eliquis.-D-dimer 1496. -VQ scan with intermediate probability. 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 Check bilateral lower extremity Dopplers -> neg-Renally dose lovenox @ 1mg/kg once daily -d/w cardio. will ultimately AC with eliquis asa and DC plavix. Continue lovenox for now. COPD No exacerbation. On Combivent and ipratropium nebs at home.-May need repeat pulmonary function test outpatient. [facility] due [facility] with [facility] RLL nodule CT chest 03/03/2023. 1.5 x 0.8 cm nodular opacity in RLL needs follow-up in 3 months CAD / PAD S/p CABG 03/04/2023 Cardiothoracic surgery following Pending echo- will need periph angio when cr improved JERAMY/CKD Nephrology consult Strict I O. 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- GI clearance prior to transitioning to Eliquis at 1213 RPT #:[id number] OF REPORTPRProgress [id number]:10:00G.[id number] able for patient fajgNKRADJCIPYQNMA3709-34-03Y57:14:01 [facility] 2023-04-14 11:26:00 [id number] HxIeNHxHSuXnJCA8bvAYk8VMSRO3649-16-49J60:26:00 [facility] ([facility]ENephrology Progress NoteREPORT#:[id number] REPORT STATUS: SignedDATE:04/14/23 TIME: 1126 PATIENT: TEVIN NYE UNIT #: [id number]#: [id number] [address] [birth year] AGE: 73 SEX: M ATTEND: Pablo Kumar [facility] AUTHOR: Glendy Paz MD * ALL edits or amendments must be made on the electronic/computer document * SubjectiveChief complaint:Follow-up of acute renal failure, ATN/AINComments:Breathing better Objective GeneralVS/I O:Vital Signs: Date Time Temp Pulse Resp B/P B/P Pulse O2 O2 Flow FiO2 Mean Ox Delivery Rate 04/14 1107 98.1 69 17 153/70 97.5 98 04/14 0720 98.1 42 17 142/58 86.1 99 04/14 0518 98.1 57 16 142/79 100.3 100 Nasal cannula 04/14 0045 98.2 86 16 108/53 71.7 99 Nasal cannula 04/13 2237 98.1 41 16 147/56 86.4 98 Nasal cannula 04/13 2145 98.2 42 18 156/62 93.7 99 04/13 1927 93 Room air 04/13 1621 98.1 39 17 145/64 91.0 98 04/13 1204 98.1 83 17 157/65 95.5 99 24 hour I O ending at 0700: 0807 0700 08/06 1900 Intake Total 75.00 Output Total 325 Balance -250.00 Intake, IV 75.00 Output, Urine 325 PATIENT WEIGHT: Weight (lb): Weight (oz): Weight (kg): 86.200 MedicationsActive Meds + DC'd Last 24 HrsAmiodarone HCl (CORDARONE) 200 MG DAILY PO Magnesium Sulfate (MAGNESIUM SULFATE 4GM/SWFI 100ML) 100 ML ONCE ONE IV Furosemide (LASIX 20MG INJ) 20 MG ONCE ONE IV (DC) Furosemide (LASIX 20MG INJ) 20 MG ONCE ONE IV (DC) Enoxaparin Sodium (lovENOX) 85 MG Q12H SUBQ Metoprolol Tartrate (LOPRESSOR) 25 MG Q8HR PO Atorvastatin Calcium (LIPITOR) 40 MG 2100 PO Lactulose (LACTULOSE) 20 GM BID PRN PRN PO Miscellaneous Information (LOVENOX PHARMACY TO DOSE) 1 EACH ASDIR SUBQ (CKD) Sterile Water (WATER FOR IRRIGATION) DRESSING CHANGE ASDIR PRN IRR Sodium Chloride (SODIUM CHLORIDE 0.9%) 1,000 ML .[id number] IV (DC) Aspirin (ASPIRIN) 81 MG DAILY PO Fluoxetine HCl (PROzac) 10 MG QAM PO Insulin Human Lispro (HUMALOG) 0 AC HS SUBQ Albuterol/Ipratropium (DUONEB) 3 ML RTQ4H NEB Tamsulosin HCl (Flomax 0.4 mg) 0.8 MG BEDTIME PO Acetaminophen (TYLENOL) 650 MG Q4H PRN PRN PO Hydrocodone Bitart/Acetaminophen (NORCO 5/325) 1 TAB Q4H PRN PRN PO (DC) Morphine Sulfate (morphine SULFATE) 4 MG Q4H PRN PRN IV (DC) Ondansetron HCl (ZOFRAN) 4 MG Q4H PRN PRN IV Physical ExamGeneral appearance: alert, awakeHead/eyes: atraumatic, normocephalicENT: moist mucous membranesNeck: supple/no meningismus, no JVDCardiovascular: normal heart sounds, no rubRespiratory: crackles (AT BASES)Genitourinary: no bladder distentionExtremities: no edemaNeuro/SALES ASSISTANT: alert, oriented X 3Ulcer: Type/cause: scab left foot. ResultsFindings/Data:Laboratory Tests 04/14 04/14 04/13 04/13 04/13 0719 0454 2140 1619 1159Chemistry Sodium (134 - 147 mEq/L) 139 Potassium (3.4 - 5.0 mEq/L) 4.2 Chloride (100 - 108 mEq/L) 110 H Carbon Dioxide (21 - 33 mEq/l) 26 Anion Gap (0 - 20) 7 BUN (7 - 18 mg/dL) 16 Creatinine (0.6 - 1.3 mg/dL) 1.3 Glomerular Filtr Rate (70 - 80) 58.4 L Glucose (70 - 110 mg/dL) 208 H POC Glucose (70 - 110 MG/DL) 200 H 223 H 135 H 211 H Calcium (8.0 - 10.5 mg/dL) 8.3 Ionized Calcium Breana (1.09 - 1.30 1.16MMOL/L) Magnesium (1.80 - 2.40 mg/dL) 1.39 L Total Bilirubin (0.0 - 1.0 mg/dL) 0.20 AST (15 - 37 IUnit/L) 17 ALT (30 - 65 IUnit/L) 19 L Total Alk Phosphatase (20 - 125 80IUnit/L) Total Protein (6.4 - 8.2 g/dL) 5.6 L Albumin (3.4 - 5.0 g/dL) 2.50 L Laboratory Tests 04/14 454 Hematology WBC (4.5 - 11.0 x10 3/uL) 3.5 L RBC (4.00 - 5.60 x10 6/uL) 2.72 L Hgb (12.5 - 16.9 g/dL) 8.0 L Hct (37.5 - 50.7 %) 25.5 L MCV (81.0 - 99.0 fL) 93.8 MCH (27.0 - 33.0 pg) 29.4 MCHC (33.0 - 37.0 g/dL) 31.4 L RDW (11.5 - 14.5 %) 16.8 H Plt Count (150 - 400 x10 3/uL) 158 MPV (7.0 - 9.0 fL) 10.6 H Neut % (Auto) (56.0 - 77.0 %) 78.5 H Lymph % (Auto) (14.0 - 32.0 %) 9.7 L [place] % (Auto) (4.8 - 9.0 %) 8.6 Eos % (Auto) (0.3 - 3.7 %) 1.4 Baso % (Auto) (0.0 - 2.0 %) 0.9 Neut # (Auto) (2.0 - 7.6 x10 3/uL) 2.74 Lymph # (Auto) (1.0 - 3.8 x10 3/uL) 0.34 L [place] # (Auto) (0.1 - 0.8 x10 3/uL) 0.30 Eos # (Auto) (0.0 - 0.2 x10 3/uL) 0.05 Baso # (Auto) (0.0 - 0.2 x10 3/uL) 0.03 Abs Immat Gran (auto) (0.00 - 0.03 x10 3/uL) 0.03 Add Manual Diff NO Immature Gran % (0.0 - 2.0 %) 0.9 Nucleated RBC % (0 - 0 %) 0.0 Nucleated RBCs # (Man) (0.0 - 0.1 x10 3/uL) 0.00 Microbiology Date/Time Procedure - Status Source Growth 04/13 1640 Occult Blood - COMP STOOL Radiology data:Recent Impressions:RADIOLOGY - XR CHEST 1 V 04/13 1720 Report Impression - Status: SIGNED Entered: 04/14/2023 0616 IMPRESSION: No acute cardiopulmonary abnormality.Impression By: [email or web address] - Margarito Borges M.D. Diagnosis, Assessment PlanFree Text A P:Assessment/plan:1. Acute renal failure most likely secondary to volume depletion, overdiuresis and ATN/AIN with Bactrim and lisinopril on board. Cr further better 2.9-2.4-1.9> 1.2 >1.3 today, renal sono reviewed, urine proten/cr ratio 0.4Lasix 20 mg IV x1 today 2. Coronary artery disease: Status post CABG, continue home medications 3. COPD: Symptomatic treatment 4. History of prostate cancer, s/p radiation 2021 5. Anemia: Requested stool occult blood-not sent yet, and iron studies reviewed-ok, transfuse as needed for hemoglobin less than 7. pending rehab. stable from nephrology for discharge. at 1334 [facility] #:[id number] OF REPORTPRProgress [id number]:26:00G.[id number] able for patient jvkvJYDZQBRYWWWQBZ1714-02-88J58:35:11 [facility] 2023-04-14 10:38:00 [id number]/[id number] lI7aXveAW6jiprbGe1WeVj4nG933647-38-20X71:38:00 [facility] ProgREPORT#:[id number] REPORT STATUS: SignedDATE:04/14/23 TIME: 1038 PATIENT: TEVIN NYE UNIT #: [id number]#: [id number] [address] [birth year] AGE: 73 SEX: M ATTEND: Rojelio Magaña MDADM AUTHOR: Evon Andrew Physic * ALL edits or amendments must be made on the electronic/computer document * GeneralStatus post:03/04/2023 CABG x 4 (MCCORMICK-LAD,SVG-Renea, SVG-OM, SVG-PDA SubjectiveChief complaint:Resting comfortable.Denies complaintFeeling better Review of SystemsConstitutional:Denies: fever, generalized weakness. Respiratory:Denies: SOB. Cardiovascular:Reports: [place] (dyspnea on exertion). Denies: chest pain, edema. GI:Denies: constipation, diarrhea. Musculoskeletal:Denies: joint pain, joint swelling. Heme:Denies: bleeding, bruising. Endocrine:Denies: polydipsia, polyuria. Neuro:Denies: dizziness. Psych:Denies: agitation, anxiety. All systems rev neg: except as marked Objective GeneralVS/I OLast Documented: Result Date Time Pulse Ox 99 04/14 720 B/P 142/58 04/14 720 B/P Mean 86.1 04/14 720 Temp 98.1 04/14 720 Pulse 42 04/14 720 Resp 17 04/14 720 O2 Delivery Nasal cannula 04/14 05 O2 Flow Rate 3 04/13 0902 FiO2 28 04/10 800 24 hour I O ending at 0700: 04/14 0700 04/13 1900 Intake Total 75.00 Output Total 325 Balance -250.00 Intake, IV 75.00 Output, Urine 325 PATIENT WEIGHT: Weight (lb): Weight (oz): Weight (kg): 86.200 Physical ExamGeneral appearance: alert, awake, orientedHEENT: mucosal membranes moistCardiovascular: regular rate rhythmRespiratory: aerating well, clear to auscultationAbdomen: soft, non-tenderExtremities: dry, moves allMusculoskeletal: full range of motionNeuro/SALES ASSISTANT: alert, oriented X 3Skin: dry, intactUlcer: Type/cause: scab left foot. Diagnosis, Assessment PlanHospital course to date:This is a 73-year-old gentleman with past medical history of coronary artery disease status post coronary artery bypass graft surgery on 3CABG x 4 (MCCORMICK-LAD,SVG-Renea, SVG-OM, SVG-PDA) Patient was DC'd home on 03/13/2023. He was DC'd home on home oxygen for findingsconsistent with COPD. The patient reports over the past few weeks he has experienced increased shortness of breath with exertion.The patient denies any lower extremity edema and in fact reports his lower extremity edema has slightly improved since his hospital stay. The patient presented to hospital on [facility] for evaluation of shortness ofbreath. During his hospitalization for coronary bypass graft surgery the patient's creatinine wero to 3 and came down to baseline of 1.6.His admission creatinine today 2.9 The patient denies any chest pains, denies any palpitations. Assessment/plan1. Coronary artery disease Status post coronary bypass graft surgery . CKD Consult renal3. COPD4. Shortness of breath Sternal wound is clean and dry. There is no signs of infection. Sternum is stable.Left leg wound graft site also clean and dry no signs of infection We will obtain echocardiogram, cardiac consultation and renal consultation.Continue daily labsDaily chest x-rayWe will continue to follow 04/09/23Patient resting comfortableON 2 L NCLabs reviewedElevated Creatine. Nephrology consulted.Awaiting echo-Cardiology consulted. COPD, will consult pulmonaryPatient was seen and examined by Dr. Villeda. Continue supportive care 04/10/23Patient resting comfortableDenies complaints, feeling betterCreatinine improving, renal following. Given IV fluidsRestart back on Eliquis as per pulmonary recommendation due to history of PE, DC PlavixEchocardiogram completed showing EF 55-59%, Trivial pericardial effusionCOPD, pulmonary followingContinue supportive care. 04/11/23Patient resting comfortable, denies chest pains, denies shortness of breathCreatinine improving, renal followingShortness of breath improvedRestarted on patient's Eliquis. History of PEs followed by pulmonaryPatient doing well.Discharge planning in progress as per multidisciplinary teams.No CV surgical indicationPatient was seen and examined by Dr. Villeda 04/12/23Patient resting comfortable. Denies complaintsFeeling betteron 2 L NC. Shortness of breath improved. Renal function improved. Disposisiton will be rehab. 04/13/23Patient resting comfortable, denies complaintsOn 2 L nasal cannula, followed by pulmonaryRenal function improved creatinine 1.3Rehab following. Patient will benefit from inpatient rehab stayLabs reviewed, electrolytes replaced by cardiologyFoot ulcer improving, followed by podiatryOverall making good progress. Disposition will be rehab at 1040 at 1227 [facility] #:[id number] OF REPORTPRProgress [id number]:38:00G.[id number] able for patient hhulYDJEEAMARSHCAS7857-61-89Y30:41:03 [facility] 2023-04-14 10:34:00 [id number]/jO3gIZ3FWdU2jEqPMrt CBtKJRzmnnbZIyv8Wj1fuqjdffj9370-95-22I54:34:00 [facility] ([facility])Hospitalist Progress NoteREPORT#:[id number] REPORT STATUS: SignedDATE:04/14/23 TIME: 1034 PATIENT: TEVIN NYE UNIT #: [id number]#: [id number] ROOM/BED: 5517-1DOB: [birth year] AGE: 73 SEX: M ATTEND: Pablo Kumar [facility] AUTHOR: Pablo Kumar MD * ALL edits or amendments must be made on the electronic/computer document * SubjectiveChief complaint:no c/o. no cp no sob. awaiitng transfer to rehab. Objective GeneralVS/I O:Vital Signs: Date Time Temp Pulse Resp B/P B/P Pulse O2 O2 Flow FiO2 Mean Ox Delivery Rate 04/14 0720 98.1 42 17 142/58 86.1 99 04/14 0518 98.1 57 16 142/79 100.3 100 Nasal cannula 04/14 0045 98.2 86 16 108/53 71.7 99 Nasal cannula 04/13 2237 98.1 41 16 147/56 86.4 98 Nasal cannula 04/13 2145 98.2 42 18 156/62 93.7 99 04/13 1927 93 Room air 04/13 1621 98.1 39 17 145/64 91.0 98 04/13 1204 98.1 83 17 157/65 95.5 99 24 hour I O ending at 0700: 04/14 0700 04/13 1900 Intake Total 75.00 Output Total 325 Balance -250.00 Intake, IV 75.00 Output, Urine 325 PATIENT WEIGHT: Weight (lb): Weight (oz): Weight (kg): 86.200 Physical ExamGeneral appearance: alert, awakeHead/Eyes: atraumatic, clear cornea, EOMINeck: supple/no meningismusCardiovascular: normal heart sounds, regular rate rhythm, no gallop, no murmur, no rubRespiratory: aerating well, clear to auscultation, symmetric expansionAbdomen: non-tender, normal bowel sounds, soft, no distentionExtremities: no clubbing, no cyanosis, no edemaMusculoskeletal: normal inspection, painless range of motionNeuro/SALES ASSISTANT: alert, oriented X 3, CNII-XII intactSkin: dry, intactUlcer: Type/cause: scab left foot. ResultsRadiology data:Laboratory Tests 04/14/23 0454:[Embedded Image Not Available] 04/13/23 0620:[Embedded Image Not Available] Current Medications Sig/Yas Start time Last Medication Dose Route Stop Time Status Admin Amiodarone HCl 200 MG DAILY 04/14 09 AC 04/14 PO 05/14 0859 0921 Magnesium Sulfate 100 ML ONCE ONE 04/14 0745 AC 04/14 IV 04/14 1144 0919 Furosemide 20 MG ONCE ONE 04/13 1400 DC 04/13 IV 04/13 1401 1637 Furosemide 20 MG ONCE ONE 04/13 1145 DC 04/13 IV 04/13 1146 1316 Enoxaparin Sodium 85 MG Q12H 04/12 1800 AC 04/14 SUBQ 05/12 1759 0623 Metoprolol Tartrate 25 MG Q8HR 04/10 1400 AC 04/14 PO 05/08 2259 0623 Atorvastatin Calcium 40 MG 2100 04/09 2100 AC 04/13 PO 05/09 2059 2146 Lactulose 20 GM BID PRN PRN 04/09 1900 AC 04/09 PO 05/09 1859 1933 Miscellaneous 1 EACH ASDIR 04/09 1530 CKD Information SUBQ 04/16 1529 Sterile Water See Dose ASDIR PRN 04/09 1230 AC Insts (1) IRR 05/09 1229 Sodium Chloride 1,000 ML .[id number] 04/09 1145 DC 04/13 IV 05/09 1144 1130 Aspirin 81 MG DAILY 04/09 1015 AC 04/14 PO 05/09 1014 0920 Fluoxetine HCl 10 MG QAM 04/09 0900 AC 04/14 PO 05/09 0859 0921 Insulin Human Lispro 0 AC HS 04/09 0730 AC 04/14 SUBQ 05/09 0729 0920 Albuterol/Ipratropium 3 ML RTQ4H 04/09 0000 AC 04/14 NEB 05/09 0000 0841 Tamsulosin HCl 0.8 MG BEDTIME 04/08 2300 AC 04/13 PO 05/08 2259 2146 Acetaminophen 650 MG Q4H PRN PRN 04/08 1800 AC 04/13 PO 05/08 1759 2147 Hydrocodone Bitart/ 1 TAB Q4H PRN PRN 04/08 1800 DC Acetaminophen PO 04/13 1759 Morphine Sulfate 4 MG Q4H PRN PRN 04/08 1800 DC IV 04/13 1759 Ondansetron HCl 4 MG Q4H PRN PRN 04/08 1800 AC IV 05/08 1759 Dose Instructions:(1)Sterile Water: DRESSING CHANGE Laboratory Tests: 04/14 04/14 04/13 04/13 0719 0454 2140 1619Chemistry Sodium (134 - 147 mEq/L) 139 Potassium (3.4 - 5.0 mEq/L) 4.2 Chloride (100 - 108 mEq/L) 110 H Carbon Dioxide (21 - 33 mEq/l) 26 Anion Gap (0 - 20) 7 BUN (7 - 18 mg/dL) 16 Creatinine (0.6 - 1.3 mg/dL) 1.3 Glomerular Filtr Rate (70 - 80) 58.4 L Glucose (70 - 110 mg/dL) 208 H POC Glucose (70 - 110 MG/DL) 200 H 223 H 135 H Calcium (8.0 - 10.5 mg/dL) 8.3 Ionized Calcium Breana (1.09 - 1.30 MMOL/L) 1.16 Magnesium (1.80 - 2.40 mg/dL) 1.39 L Total Bilirubin (0.0 - 1.0 mg/dL) 0.20 AST (15 - 37 IUnit/L) 17 ALT (30 - 65 IUnit/L) 19 L Total Alk Phosphatase (20 - 125 IUnit/L) 80 Total Protein (6.4 - 8.2 g/dL) 5.6 L Albumin (3.4 - 5.0 g/dL) 2.50 LHematology WBC (4.5 - 11.0 x10 3/uL) 3.5 L RBC (4.00 - 5.60 x10 6/uL) 2.72 L Hgb (12.5 - 16.9 g/dL) 8.0 L Hct (37.5 - 50.7 %) 25.5 L MCV (81.0 - 99.0 fL) 93.8 MCH (27.0 - 33.0 pg) 29.4 MCHC (33.0 - 37.0 g/dL) 31.4 L RDW (11.5 - 14.5 %) 16.8 H Plt Count (150 - 400 x10 3/uL) 158 MPV (7.0 - 9.0 fL) 10.6 H Neut % (Auto) (56.0 - 77.0 %) 78.5 H Lymph % (Auto) (14.0 - 32.0 %) 9.7 L [place] % (Auto) (4.8 - 9.0 %) 8.6 Eos % (Auto) (0.3 - 3.7 %) 1.4 Baso % (Auto) (0.0 - 2.0 %) 0.9 Neut # (Auto) (2.0 - 7.6 x10 3/uL) 2.74 Lymph # (Auto) (1.0 - 3.8 x10 3/uL) 0.34 L [place] # (Auto) (0.1 - 0.8 x10 3/uL) 0.30 Eos # (Auto) (0.0 - 0.2 x10 3/uL) 0.05 Baso # (Auto) (0.0 - 0.2 x10 3/uL) 0.03 Abs Immat Gran (auto) (0.00 - 0.03 x10 3/uL) 0.03 Add Manual Diff NO Immature Gran % (0.0 - 2.0 %) 0.9 Nucleated RBC % (0 - 0 %) 0.0 Nucleated RBCs # (Man) (0.0 - 0.1 x10 3/uL) 0.00 04/13 1159 Chemistry POC Glucose (70 - 110 MG/DL) 211 H Microbiology:04/13 1640 STOOL: Occult Blood - COMP Recent Impressions:RADIOLOGY - XR CHEST 1 V 04/13 1720 Report Impression - Status: SIGNED Entered: 04/14/2023 0616 IMPRESSION: No acute cardiopulmonary abnormality.Impression By: [email or web address] - Margarito Borges M.D. Diagnosis, Assessment Plan Free Text DxA P NotesFree text DxA P notes:SOBcardiology and pulmonary seenon 2.5 to 3 liters of oxygen per n/cecho wnlwill give lasix twenty mg one time dosecheck chest xray04/14- CXR on 04/13 was negative. pulmonary following. elevated D-dimerV-Q scan with intermediate probabilityon therapeutic lovenox renally dosed for now04/14- pulmonary following...worsening anemia, but guiaiac negaive anemia9/8- hgb dropped to 8 today (9.7 two days ago). ask heme to see. h/o cancer. guiaiac negative. JERAMY with CKDrenal seenon IVFcreat improving COPDon home oxygen h/o CADs/p CABG X4 on 3CTS consulted and seen DMaccuchecks and SSI prncheck A1CBG controlled HTNbp controlledresumed home meds HLDon statinstable Prostate cancers/p XRT Debilityper PT/OT could be a post acute rehab candidate consulted rehabrecommend IRF check labs in amf/up wiht DR. Rinaldi 04/14- awiaitng tranfer to rehab. folow h/h. ask heme to see. at 1040 RPT #:[id number] OF REPORTPRProgress [id number]:34:00G.[id number] able for patient bnatTZZHUUJWEPUYKG4847-59-54O76:41:13 [facility] 2023-04-14 10:25:00 [id number] 58FfYUKdi6MIbrWnoRbxB2akfkg5852-83-03G54:25:00 [facility]Re[facility] Progress NoteREPORT#:[id number] REPORT STATUS: SignedDATE:04/14/23 TIME: 1025 PATIENT: TEVIN NYE UNIT #: [id number]#: [id number] [address] [birth year] AGE: 73 SEX: M ATTEND: Pablo Kumar [facility] AUTHOR: Kelsi Cornelius * ALL edits or amendments must be made on the electronic/computer document * SubjectiveChief complaint:The patient was seen today for rehab follow up. He was sitting EOB for AM meal. Pending transfer to IRF. Objective GeneralVS:Vital Signs: Date Time Temp Pulse Resp B/P B/P Pulse O2 O2 Flow FiO2 Mean Ox Delivery Rate 04/14 07 98.1 42 17 142/58 86.1 99 04/14 0518 98.1 57 16 142/79 100.3 100 Nasal cannula 04/14 0045 98.2 86 16 108/53 71.7 99 Nasal cannula 04/13 2237 98.1 41 16 147/56 86.4 98 Nasal cannula 04/13 2145 98.2 42 18 156/62 93.7 99 04/13 1927 93 Room air 04/13 1621 98.1 39 17 145/64 91.0 98 04/13 1204 98.1 83 17 157/65 95.5 99 PATIENT WEIGHT: Weight (lb): Weight (oz): Weight (kg): 86.200 Functional ProgressFunctional progress: ACTIVITIES PERFORMED: Grooming and Hygiene: Yes Toileting: Yes [facility] Activity: No Precautions: Fall Requires verbal cues to direct task: No Positions Used: Supine in bed with HOB up Sitting on edge of bed Standing with Assist FUNCTIONAL BALANCE DURING ACTIVITY: Fair TREATMENT OUTCOMES: Goals Achieved: No Progress demonstrated toward desired goals: No Decreased level of assistance needed: No Patient unable to tolerate intervention: No Performance limited by: Decrease mobility/balance Decreased Range of Motion Activity tolerance: 10-20 minutes Comments: PLEASE SEE OT INITIAL EVAL NOTES. Document OT charges: SELF/HOME MGT/ADL [id number] Document Pain/Education: No Review OT Plan of Care: No If this is the patient's last treatment, this entry serves as the discharge summary: Y Start Time: 830 Stop Time: 845 Treatment time (minutes): 0:15 Completed by: Alia Mak GROOMING/HYGIENE: Washing hands/face: Supervision or Set-up Combing/brushing hair: Supervision or Set-up Toileting: Supervision or Set-up Safety awareness demonstrated during completion of task: Yes Requires set up of supplies: Yes Comments: URINAL FOR TOILETING. Physical ExamGeneral appearance: alert, no acute distress, conversational, mental status normalPsych: alert, normal affectNeck: non-tender, suppleCardiovascular: regular rate rhythm, S1/G9Wmfrpnkvurf: diminished breath sounds, aerating wellAbdomen: bowel sounds present, soft, non-tenderUlcer: Type/cause: scab left foot.Musculoskeletal - general: Musculoskeletal - general: normal muscle massNeuro/SALES ASSISTANT: alert, oriented X 3, CNII-XII intact, normal speech, no sensory deficits ResultsFindings/Data:Laboratory Tests: 04/14 04/14 04/13 04/13 04/13 0719 0454 2140 1619 1159Chemistry Sodium (134 - 147 mEq/L) 139 Potassium (3.4 - 5.0 mEq/L) 4.2 Chloride (100 - 108 mEq/L) 110 H Carbon Dioxide (21 - 33 mEq/l) 26 Anion Gap (0 - 20) 7 BUN (7 - 18 mg/dL) 16 Creatinine (0.6 - 1.3 mg/dL) 1.3 Glomerular Filtr Rate (70 - 80) 58.4 L Glucose (70 - 110 mg/dL) 208 H POC Glucose (70 - 110 MG/DL) 200 H 223 H 135 H 211 H Calcium (8.0 - 10.5 mg/dL) 8.3 Ionized Calcium Breana (1.09 - 1.30 MMOL/L) 1.16 Magnesium (1.80 - 2.40 mg/dL) 1.39 L Total Bilirubin (0.0 - 1.0 mg/dL) 0.20 AST (15 - 37 IUnit/L) 17 ALT (30 - 65 IUnit/L) 19 L Total Alk Phosphatase (20 - 125 IUnit/L) 80 Total Protein (6.4 - 8.2 g/dL) 5.6 L Albumin (3.4 - 5.0 g/dL) 2.50 LHematology WBC (4.5 - 11.0 x10 3/uL) 3.5 L RBC (4.00 - 5.60 x10 6/uL) 2.72 L Hgb (12.5 - 16.9 g/dL) 8.0 L Hct (37.5 - 50.7 %) 25.5 L MCV (81.0 - 99.0 fL) 93.8 MCH (27.0 - 33.0 pg) 29.4 MCHC (33.0 - 37.0 g/dL) 31.4 L RDW (11.5 - 14.5 %) 16.8 H Plt Count (150 - 400 x10 3/uL) 158 MPV (7.0 - 9.0 fL) 10.6 H Neut % (Auto) (56.0 - 77.0 %) 78.5 H Lymph % (Auto) (14.0 - 32.0 %) 9.7 L [place] % (Auto) (4.8 - 9.0 %) 8.6 Eos % (Auto) (0.3 - 3.7 %) 1.4 Baso % (Auto) (0.0 - 2.0 %) 0.9 Neut # (Auto) (2.0 - 7.6 x10 3/uL) 2.74 Lymph # (Auto) (1.0 - 3.8 x10 3/uL) 0.34 L [place] # (Auto) (0.1 - 0.8 x10 3/uL) 0.30 Eos # (Auto) (0.0 - 0.2 x10 3/uL) 0.05 Baso # (Auto) (0.0 - 0.2 x10 3/uL) 0.03 Abs Immat Gran (auto) (0.00 - 0.03 0.03x10 3/uL) Add Manual Diff NO Immature Gran % (0.0 - 2.0 %) 0.9 Nucleated RBC % (0 - 0 %) 0.0 Nucleated RBCs # (Man) (0.0 - 0.1 0.00x10 3/uL) Microbiology:04/13 1640 STOOL: Occult Blood - COMP Radiology data:Recent Impressions:RADIOLOGY - XR CHEST 1 V 04/13 1720 Report Impression - Status: SIGNED Entered: 04/14/2023 0616 IMPRESSION: No acute cardiopulmonary abnormality.Impression By: Rosie01 - Margarito Borges M.D. Diagnosis, Assessment PlanFree Text A P:73 year old male with acute on chronic respiratory failure, elevated D-dimer, JERAMY on CKD, recent CABG and weakness. Continue with PT/OT. Recommend IRF placement for his ongoing medical and rehabilitation needs. He is willing to stay here at [facility]. 04/14: Continue with therapy as tolerated. Pending IRF transfer. Encouraged increased time EOB/OOB to build endurance, balance and strength. Rehab attestation:Face to face exam completed. Treatment plan discussed with patient. at 1641 RPT #:[id number] OF REPORTPRProgress [id number]:25:00G.[id number] able for patient zcrzUWIIVKFTBCQNRU7091-82-50U69:41:15 [facility] 2023-04-14 07:35:00 [id number] [id number]+ebRbzQQXauLnTE gH2nOGUO3Sh8R02KOuKHBYREY8u6356-07-69F86:35:00 [facility] CenterCard[facility] Progress NoteREPORT#:[id number] REPORT STATUS: SignedDATE:04/14/23 TIME: 734 PATIENT: TEVIN NYE UNIT #: [id number]#: [id number] [address] AGE: 73 SEX: M ATTEND: Rojelio Magaña MDA AUTHOR: Daniela Mari AGACNP * ALL edits or amendments must be made on the electronic/computer document * SubjectivePatient reports:No: complaints. Objective GeneralVS/I O:24 hour I O ending at 0700: 04/14 0700 04/13 1900 Intake Total 75.00 Output Total 325 Balance -250.00 Intake, IV 75.00 Output, Urine 325 Vital Signs: Date Time Temp Pulse Resp B/P B/P Pulse O2 O2 Flow FiO2 Mean Ox Delivery Rate 04/14 720 36.7 42 17 142/58 86.1 99 04/14 0518 36.7 57 16 142/79 100.3 100 Nasal cannula 04/14 0045 36.8 86 16 108/53 71.7 99 Nasal cannula 04/13 2237 36.7 41 16 147/56 86.4 98 Nasal cannula 04/13 2145 36.8 42 18 156/62 93.7 99 / 1927 93 Room air 04/13 1621 36.7 39 17 145/64 91.0 98 / 1204 36.7 83 17 157/65 95.5 99 04/13 0902 99 Nasal 3 cannula 04/13 0900 Nasal 2 cannula 04/13 0808 36.7 69 17 157/69 98.2 99 Nasal 3.50 cannula PATIENT WEIGHT: Weight (lb): Weight (oz): Weight (kg): 86.200 Medications:Active Meds + DC'd Last 24 HrsFurosemide (LASIX 20MG INJ) 20 MG ONCE ONE IV (DC) Furosemide (LASIX 20MG INJ) 20 MG ONCE ONE IV (DC) Enoxaparin Sodium (lovENOX) 85 MG Q12H SUBQ Metoprolol Tartrate (LOPRESSOR) 25 MG Q8HR PO Atorvastatin Calcium (LIPITOR) 40 MG 2100 PO Lactulose (LACTULOSE) 20 GM BID PRN PRN PO Miscellaneous Information (LOVENOX PHARMACY TO DOSE) 1 EACH ASDIR SUBQ (CKD) Sterile Water (WATER FOR IRRIGATION) DRESSING CHANGE ASDIR PRN IRR Sodium Chloride (SODIUM CHLORIDE 0.9%) 1,000 ML .[id number] IV (DC) Aspirin (ASPIRIN) 81 MG DAILY PO Fluoxetine HCl (PROzac) 10 MG QAM PO Insulin Human Lispro (HUMALOG) 0 AC HS SUBQ Albuterol/Ipratropium (DUONEB) 3 ML RTQ4H NEB Tamsulosin HCl (Flomax 0.4 mg) 0.8 MG BEDTIME PO Acetaminophen (TYLENOL) 650 MG Q4H PRN PRN PO Hydrocodone Bitart/Acetaminophen (NORCO 5/325) 1 TAB Q4H PRN PRN PO (DC) Morphine Sulfate (morphine SULFATE) 4 MG Q4H PRN PRN IV (DC) Ondansetron HCl (ZOFRAN) 4 MG Q4H PRN PRN IV Physical ExamGeneral appearance: alert, awakeNeck: non-tender, no JVDCardiovascular: CV assessment: ectopy, irregular rhythmRespiratory: decreased breath sounds, no distressAbdomen: soft, non-tender, normal bowel sounds, no distentionGenitourinary: no flank pain, no urinary catheterLower extremity: LE assessment: abnormal pedal pulseMusculoskeletal: normal inspectionNeuro/SALES ASSISTANT: alert, oriented X 3, normal speechSkin: dry, intactUlcer: Type/cause: scab left foot.Psychiatry: normal affect, normal judgment/insight, normal mood ResultsFindings/Data:Laboratory Tests 04/14 04/14 04/13 04/13 04/13 0719 0454 2140 1619 1159Chemistry Sodium (134 - 147 mEq/L) 139 Potassium (3.4 - 5.0 mEq/L) 4.2 Chloride (100 - 108 mEq/L) 110 H Carbon Dioxide (21 - 33 mEq/l) 26 Anion Gap (0 - 20) 7 BUN (7 - 18 mg/dL) 16 Creatinine (0.6 - 1.3 mg/dL) 1.3 Glomerular Filtr Rate (70 - 80) 58.4 L Glucose (70 - 110 mg/dL) 208 H POC Glucose (70 - 110 MG/DL) 200 H 223 H 135 H 211 H Calcium (8.0 - 10.5 mg/dL) 8.3 Ionized Calcium Breana (1.09 - 1.30 MMOL/L) 1.16 Magnesium (1.80 - 2.40 mg/dL) 1.39 L Total Bilirubin (0.0 - 1.0 mg/dL) 0.20 AST (15 - 37 IUnit/L) 17 ALT (30 - 65 IUnit/L) 19 L Total Alk Phosphatase (20 - 125 IUnit/L) 80 Total Protein (6.4 - 8.2 g/dL) 5.6 L Albumin (3.4 - 5.0 g/dL) 2.50 L 04/13 08 Chemistry POC Glucose (70 - 110 MG/DL) 170 H Microbiology Date/Time Procedure - Status Source Growth 04/13 1640 Occult Blood - COMP STOOL Laboratory Tests 04/14 0454 Chemistry Magnesium (1.80 - 2.40 mg/dL) 1.39 L Radiology data:Recent Impressions:RADIOLOGY - XR CHEST 1 V 04/13 1720 Report Impression - Status: SIGNED Entered: 04/14/2023 0616 IMPRESSION: No acute cardiopulmonary abnormality.Impression By: Erasmo - Margarito Borges M.D. Telemetry Interpretation:Sinus rhythm with frequent PVCs Diagnosis, Assessment PlanPlan discussed with: patient, collaborating MD Free Text DxA P NotesFree Text DxA P Notes:73 YO male with MHx of CAD s/p CABG less than 1 month ago, COPD, PE. He presentswith generalized weakness and near syncope. Per family the patient was progressively getting weak since being discharged from the hospital post CABG. Yesterday he was noticed to be really weak. The patient remarked he felt he was going to pass out. Other symptoms reported includes SOB, anorexia, LE edema, wound on the dorsum of the right foot. Creatinine elevated at 3, it was 1.6 when he was discharged few weeks ago. D-dimer elevated 1496. He has abnormal pedal pulses. 1. Dyspnea and presyncope likely d/t PE * Hx of PE, elevated D-dimer* Unable to CTA due to elevated creatinine* echocardiogram preserved LVEF* VQ suggestive of pulmonary embolism* On Lovenox full dose, transition to AC anytime 2. CAD s/p CABG* stop Plavix, continue baby ASA plus AC of choice by pulmonology* continue BB and statin 3. JERAMY on CKD 2/2 volume depletion* creatinine trending down 3->2.9->2.4->1.9->1.3* resume lisinopril when ok with nephrology* nephrology following 4. Left foot ulcer/abnormal arterial doppler* looks like the left foot wound is healing. In the event the left foot woundfailed to heal then we will consider peripheral angiogram outpatient* podiatry following - wound benign per podiatry 5. Hx of COPD* pulmonary following 6. Acute Pulmonary embolism - recurrent* AC per pulmonology* LE venous doppler no DVT 7. PVCs* Multiple PVCs * Add amiodarone 200 mg daily and continue metoprolol * Replace low magnesium Overall doing well.Rehab consultedOkay to transfer to rehab once bed available. MDM by Dr. Haynes. at 1432 at 1243 [facility] #:[id number] OF REPORTPRProgress [id number]:35:00G.[id number] able for patient mvqzKNZJRMIBLZBSYO7761-57-11H09:32:54 [facility] 2023-04-13 23:58:00 [id number] cWvxRrZ3Dv3rRt0f1cvE2A4PRnWlC wTVA/Q6kn6n2UhmTr3DoXeRUFe00401-80-03S29:58:00 [facility] CenterHospitalist Progress NoteREPORT#:[id number] REPORT STATUS: SignedDATE:04/13/23 TIME: 8 PATIENT: TEVIN NYE UNIT #: [id number]#: [id number] [address] AGE: 73 SEX: M ATTEND: Elvie Gamboa AUTHOR: Elvie Gamboa MD * ALL edits or amendments must be made on the electronic/computer document * SubjectiveChief complaint:more sob todayHPI:Patient is a 73-year-old male with past medical history of CAD s/p CABG by Dr. Villeda 03/03/2028, pulmonary embolism in November 2022, prostate cancer s/p radiation 2021, former smoker with COPD on home oxygen. Patient presenting for shortness of breath. no fevers, chills or sweats. no other comPatient is a 73-year-old male with past medical history of CAD s/p CABG by Dr. Villeda 03/03/2028, pulmonary embolism in November 2022, prostate cancer s/p radiation 2021, former smoker with COPD on home oxygen. Patient presenting for shortness of breath. Labs and imaging obtained have been personally reviewed. Objective GeneralVS/I O:Vital Signs: Date Time Temp Pulse Resp B/P B/P Pulse O2 O2 Flow FiO2 Mean Ox Delivery Rate 04/13 2237 98.1 41 16 147/56 86.4 98 Nasal cannula 04/13 2145 98.2 42 18 156/62 93.7 99 04/13 1927 93 Room air 04/13 1621 98.1 39 17 145/64 91.0 98 04/13 1204 98.1 83 17 157/65 95.5 99 04/13 0902 99 Nasal 3 cannula 04/13 0900 Nasal 2 cannula 04/13 0808 98.1 69 17 157/69 98.2 99 Nasal 3.50 cannula 04/13 0543 97.7 48 16 160/64 95.7 97 Room air 04/13 0049 98.1 86 16 145/71 95.8 98 Nasal cannula 24 hour I O ending at 0700: 04/13 0700 04/12 1900 Intake Total 100 500 Output Total 500 Balance 100 0 Intake, Oral 100 500 Number Voids 1 Output, Urine 500 PATIENT WEIGHT: Weight (lb): Weight (oz): Weight (kg): 86.200 Medications:Active Meds + DC'd Last 24 HrsFurosemide (LASIX 20MG INJ) 20 MG ONCE ONE IV (DC) Furosemide (LASIX 20MG INJ) 20 MG ONCE ONE IV (DC) Enoxaparin Sodium (lovENOX) 85 MG Q12H SUBQ Metoprolol Tartrate (LOPRESSOR) 25 MG Q8HR PO Atorvastatin Calcium (LIPITOR) 40 MG 2100 PO Lactulose (LACTULOSE) 20 GM BID PRN PRN PO Miscellaneous Information (LOVENOX PHARMACY TO DOSE) 1 EACH ASDIR SUBQ (CKD) Sterile Water (WATER FOR IRRIGATION) DRESSING CHANGE ASDIR PRN IRR Sodium Chloride (SODIUM CHLORIDE 0.9%) 1,000 ML .[id number] IV (DC) Aspirin (ASPIRIN) 81 MG DAILY PO Fluoxetine HCl (PROzac) 10 MG QAM PO Insulin Human Lispro (HUMALOG) 0 AC HS SUBQ Albuterol/Ipratropium (DUONEB) 3 ML RTQ4H NEB Tamsulosin HCl (Flomax 0.4 mg) 0.8 MG BEDTIME PO Acetaminophen (TYLENOL) 650 MG Q4H PRN PRN PO Hydrocodone Bitart/Acetaminophen (NORCO 5/325) 1 TAB Q4H PRN PRN PO (DC) Morphine Sulfate (morphine SULFATE) 4 MG Q4H PRN PRN IV (DC) Ondansetron HCl (ZOFRAN) 4 MG Q4H PRN PRN IV Physical ExamGeneral appearance: no acute distressHead/Eyes: atraumatic, clear cornea, EOMINeck: supple/no meningismusCardiovascular: normal heart sounds, regular rate rhythm, no gallop, no murmur, no rubRespiratory: aerating well, clear to auscultation, symmetric expansionAbdomen: non-tender, normal bowel sounds, soft, no distentionExtremities: no clubbing, no cyanosis, no edemaMusculoskeletal: normal inspection, painless range of motionNeuro/SALES ASSISTANT: alert, oriented X 3, CNII-XII intactSkin: dry, intactUlcer: Type/cause: scab left foot. ResultsFindings/Data:Laboratory Tests 04/13 04/13 04/13 04/13 04/13 2140 1619 1159 0803 0620 Chemistry Sodium (134 - 147 mEq/L) 141 Potassium (3.4 - 5.0 mEq/L) 5.0 Chloride (100 - 108 mEq/L) 112 H Carbon Dioxide (21 - 33 mEq/l) 24 Anion Gap (0 - 20) 10 BUN (7 - 18 mg/dL) 13 Creatinine (0.6 - 1.3 mg/dL) 1.2 Glomerular Filtr Rate (70 - 80) 64.3 L Glucose (70 - 110 mg/dL) 173 H POC Glucose (70 - 110 MG/DL) 223 H 135 H 211 H 170 H Calcium (8.0 - 10.5 mg/dL) 8.1 Laboratory Tests 04/13 620 Coagulation Heparin Anti-Xa, LM Wt (0.60 - 1.00 IU/mL) 0.56 L Laboratory Tests 04/13 620 Hematology WBC (4.5 - 11.0 x10 3/uL) 3.6 L RBC (4.00 - 5.60 x10 6/uL) 3.13 L Hgb (12.5 - 16.9 g/dL) 9.0 L Hct (37.5 - 50.7 %) 29.6 L MCV (81.0 - 99.0 fL) 94.6 MCH (27.0 - 33.0 pg) 28.8 MCHC (33.0 - 37.0 g/dL) 30.4 L RDW (11.5 - 14.5 %) 16.8 H Plt Count (150 - 400 x10 3/uL) 180 MPV (7.0 - 9.0 fL) 10.5 H Neut % (Auto) (56.0 - 77.0 %) 80.5 H Lymph % (Auto) (14.0 - 32.0 %) 8.9 L [place] % (Auto) (4.8 - 9.0 %) 6.7 Eos % (Auto) (0.3 - 3.7 %) 1.7 Baso % (Auto) (0.0 - 2.0 %) 0.8 Neut # (Auto) (2.0 - 7.6 x10 3/uL) 2.90 Lymph # (Auto) (1.0 - 3.8 x10 3/uL) 0.32 L [place] # (Auto) (0.1 - 0.8 x10 3/uL) 0.24 Eos # (Auto) (0.0 - 0.2 x10 3/uL) 0.06 Baso # (Auto) (0.0 - 0.2 x10 3/uL) 0.03 Abs Immat Gran (auto) (0.00 - 0.03 x10 3/uL) 0.05 H Add Manual Diff NO Immature Gran % (0.0 - 2.0 %) 1.4 Nucleated RBC % (0 - 0 %) 0.0 Nucleated RBCs # (Man) (0.0 - 0.1 x10 3/uL) 0.00 Microbiology Date/Time Procedure - Status Source Growth 04/13 1640 Occult Blood - COMP STOOL Diagnosis, Assessment Plan Free Text DxA P NotesFree text DxA P notes:SOBcardiology and pulmonary seenon 2.5 to 3 liters of oxygen per n/cecho wnlwill give lasix twenty mg one time dosecheck chest xray elevated D-dimerV-Q scan with intermediate probabilityon therapeutic lovenox renally dosed for now JERAMY with CKDrenal seenon IVFcreat improving COPDon home oxygen h/o CADs/p CABG X4 on 3CTS consulted and seen DMaccuchecks and SSI prncheck A1CBG controlled HTNbp controlledresumed home meds HLDon statinstable Prostate cancers/p XRT anemiahgb stablehas been having blood in stoolcheck FOBT Debilityper PT/OT could be a post acute rehab candidate consulted rehabrecommend IRF check labs in [facility]/ wi DR. Rinaldi at 0022 RPT #:[id number] OF REPORTPRProgress [id number]:58:00G.[id number] able for patient pvhwMFDRIWTRSHGLBY0005-67-22B42:22:43 [facility] 2023-04-13 14:27:00 [id number] Zx8sqCUWGm65+F7QUdhB7BppjfWfa DM4jXEWh8zFQEiLiTx7MpPetAE33593-08-27U51:27:00 [facility] ([facility])Podiatry Progress NoteREPORT#:[id number] REPORT STATUS: SignedDATE:04/13/23 TIME: 1426 PATIENT: TEVIN NYE UNIT #: [id number]#: [id number] [address] [birth year] AGE: 73 SEX: M ATTEND: Rojelio Magaña [facility] AUTHOR: Earle Og DPM * ALL edits or amendments must be made on the electronic/computer document * SubjectiveChief complaint:left foot ulcerHPI:Patient seen at bedside this afternoon. No acute overnight events. No complaints Review of SystemsConstitutional:Denies: chills, fatigue, fever, generalized weakness. Respiratory:Denies: [place] (dyspnea on exertion), non productive cough, productive cough (sputum), wheezing. Cardiovascular:Denies: chest pain, [place] (dyspnea on exertion), palpitations. GI:Denies: abdominal pain, constipation, diarrhea, nausea, vomiting. Neuro:Denies: change in LOC, confusion, dizziness, headache, lightheaded. Objective GeneralVS:Last Documented: Result Date Time Pulse Ox 99 04/13 1204 B/P 157/65 04/13 1204 B/P Mean 95.5 04/13 1204 Temp 98.1 04/13 1204 Pulse 83 04/13 1204 Resp 17 04/13 1204 O2 Delivery Nasal cannula 04/13 0902 O2 Flow Rate 3 04/13 0902 FiO2 28 04/10 0800 PATIENT WEIGHT: Weight (lb): Weight (oz): Weight (kg): 86.200 Medications:Active Meds + DC'd Last 24 HrsFurosemide (LASIX 20MG INJ) 20 MG ONCE ONE IV (DC) Furosemide (LASIX 20MG INJ) 20 MG ONCE ONE IV (DC) Enoxaparin Sodium (lovENOX) 95 MG Q24H SUBQ (CAN) Enoxaparin Sodium (lovENOX) 85 MG Q12H SUBQ Metoprolol Tartrate (LOPRESSOR) 25 MG Q8HR PO Atorvastatin Calcium (LIPITOR) 40 MG 2100 PO Lactulose (LACTULOSE) 20 GM BID PRN PRN PO Miscellaneous Information (LOVENOX PHARMACY TO DOSE) 1 EACH ASDIR SUBQ (CKD) Sterile Water (WATER FOR IRRIGATION) DRESSING CHANGE ASDIR PRN IRR Sodium Chloride (SODIUM CHLORIDE 0.9%) 1,000 ML .[id number] IV (DC) Aspirin (ASPIRIN) 81 MG DAILY PO Fluoxetine HCl (PROzac) 10 MG QAM PO Insulin Human Lispro (HUMALOG) 0 AC HS SUBQ Albuterol/Ipratropium (DUONEB) 3 ML RTQ4H NEB Tamsulosin HCl (Flomax 0.4 mg) 0.8 MG BEDTIME PO Acetaminophen (TYLENOL) 650 MG Q4H PRN PRN PO Hydrocodone Bitart/Acetaminophen (NORCO 5/325) 1 TAB Q4H PRN PRN PO Morphine Sulfate (morphine SULFATE) 4 MG Q4H PRN PRN IV Ondansetron HCl (ZOFRAN) 4 MG Q4H PRN PRN IV I O:24 hour I O ending at 0700: 06 0700 04/12 1900 Intake Total 100 500 Output Total 500 Balance 100 0 Intake, Oral 100 500 Number Voids 1 Output, Urine 500 Dietitian nutrition assessmentThe data set between the solid lines has been imported from the dietitian's assessment. BMI Calculated: 29.8Nutrition related diagnosis: Nutrition diagnosis details: Nutrition problem: Nutrition etiology: Nutrition signs and symptoms: Nutrition prescription: Dietitian name: Assessment completed: Physical ExamGeneral appearance: no acute distress, no respiratory distressWound/incision: Location:bilat foot Site condition: small pinpoint ulcer right foot. ulcer left forefoot dorsal. partial and full thickness. no erythema. no depth.LE vascular pulse assess:Nonpalpable R posterior tibialis, Nonpalpable L posterior tibialis, Nonpalpable R dorsalis pedis, Nonpalpable L dorsalis pedis ResultsFindings/Data:Laboratory Tests: 04/13 04/13 04/13 04/12 1159 0803 0620 1635Chemistry Sodium (134 - 147 mEq/L) 141 Potassium (3.4 - 5.0 mEq/L) 5.0 Chloride (100 - 108 mEq/L) 112 H Carbon Dioxide (21 - 33 mEq/l) 24 Anion Gap (0 - 20) 10 BUN (7 - 18 mg/dL) 13 Creatinine (0.6 - 1.3 mg/dL) 1.2 Glomerular Filtr Rate (70 - 80) 64.3 L Glucose (70 - 110 mg/dL) 173 H POC Glucose (70 - 110 MG/DL) 211 H 170 H 172 H Calcium (8.0 - 10.5 mg/dL) 8.1Coagulation Heparin Anti-Xa, LM Wt (0.60 - 1.00 IU/mL) 0.56 LHematology WBC (4.5 - 11.0 x10 3/uL) 3.6 L RBC (4.00 - 5.60 x10 6/uL) 3.13 L Hgb (12.5 - 16.9 g/dL) 9.0 L Hct (37.5 - 50.7 %) 29.6 L MCV (81.0 - 99.0 fL) 94.6 MCH (27.0 - 33.0 pg) 28.8 MCHC (33.0 - 37.0 g/dL) 30.4 L RDW (11.5 - 14.5 %) 16.8 H Plt Count (150 - 400 x10 3/uL) 180 MPV (7.0 - 9.0 fL) 10.5 H Neut % (Auto) (56.0 - 77.0 %) 80.5 H Lymph % (Auto) (14.0 - 32.0 %) 8.9 L [place] % (Auto) (4.8 - 9.0 %) 6.7 Eos % (Auto) (0.3 - 3.7 %) 1.7 Baso % (Auto) (0.0 - 2.0 %) 0.8 Neut # (Auto) (2.0 - 7.6 x10 3/uL) 2.90 Lymph # (Auto) (1.0 - 3.8 x10 3/uL) 0.32 L [place] # (Auto) (0.1 - 0.8 x10 3/uL) 0.24 Eos # (Auto) (0.0 - 0.2 x10 3/uL) 0.06 Baso # (Auto) (0.0 - 0.2 x10 3/uL) 0.03 Abs Immat Gran (auto) (0.00 - 0.03 x10 3/uL) 0.05 H Add Manual Diff NO Immature Gran % (0.0 - 2.0 %) 1.4 Nucleated RBC % (0 - 0 %) 0.0 Nucleated RBCs # (Man) (0.0 - 0.1 x10 3/uL) 0.00 Diagnosis, Assessment PlanFree Text A P:ulcer left foot.painPVD Labs reviewedulcer is benign...starting to peelcontinue local wound care.no xray found.venous u/s neg NIAS: pvd as expected. covering for Dr. Washington at 1118 RPT #:[id number] OF REPORTPRProgress [id number]:27:00G.[id number] able for patient oscoYMJUAJDZVCFWHL1127-88-19L89:19:22 [facility] 2023-04-13 13:56:00 [id number] i+22afFkaoQOuIKO8Xj169hkBLEU+ bGPrr1YDU6O9iunVQXIhUi/6Q1N0079-53-97U63:56:00 [facility] ([facility])Pulmonology Progress NoteREPORT#:[id number] REPORT STATUS: SignedDATE:04/13/23 TIME: 1355 PATIENT: TEVIN NYE UNIT #: [id number]#: [id number] [address] [birth year] AGE: 73 SEX: M ATTEND: Elvie Gamboa [facility] AUTHOR: David Goodwin PA * ALL edits or amendments must be made on the electronic/computer document * David Goodwin 04/13/23 1356:SubjectiveChief complaint:sobHPI:Coverage for Dr. Alan. Seen and examined, events noted.h/h slowly downtrendingreports small amount of blood in stool on O2 via NCless sobROS neg f/c, n/v, cpPatient reports:Yes: feeling better, resting comfortably. No: chest pain, congestion, cough, pain, shortness of breath, sputum. Comments:Seen and examined, events noted. Continues on 2 to 3 L/min supplemental oxygen via nasal cannula. Complains of blood in stool, worsening over the past 24 to 48 hours. ROS: Denies CP, SOB, cough, congestion, N/V/C/D, GARCIA, chills Objective GeneralVS/I O:Last Documented: Result Date Time Pulse Ox 99 04/13 1204 B/P 157/65 04/13 1204 B/P Mean 95.5 04/13 1204 Temp 36.7 04/13 1204 Pulse 83 04/13 1204 Resp 17 04/13 1204 O2 Delivery Nasal cannula 04/13 09 O2 Flow Rate 3 04/13 0902 FiO2 28 04/10 0800 24 hour I O ending at 0700: 04/13 0700 08/05 1900 Intake Total 100 500 Output Total 500 Balance 100 0 Intake, Oral 100 500 Number Voids 1 Output, Urine 500 PATIENT WEIGHT: Weight (lb): Weight (oz): Weight (kg): 86.200 Medications:Active Meds + DC'd Last 24 HrsFurosemide (LASIX 20MG INJ) 20 MG ONCE ONE IV Furosemide (LASIX 20MG INJ) 20 MG ONCE ONE IV (DC) Enoxaparin Sodium (lovENOX) 95 MG Q24H SUBQ (CAN) Enoxaparin Sodium (lovENOX) 85 MG Q12H SUBQ Metoprolol Tartrate (LOPRESSOR) 25 MG Q8HR PO Atorvastatin Calcium (LIPITOR) 40 MG 2100 PO Lactulose (LACTULOSE) 20 GM BID PRN PRN PO Miscellaneous Information (LOVENOX PHARMACY TO DOSE) 1 EACH ASDIR SUBQ (CKD) Sterile Water (WATER FOR IRRIGATION) DRESSING CHANGE ASDIR PRN IRR Sodium Chloride (SODIUM CHLORIDE 0.9%) 1,000 ML .[id number] IV (DC) Aspirin (ASPIRIN) 81 MG DAILY PO Fluoxetine HCl (PROzac) 10 MG QAM PO Insulin Human Lispro (HUMALOG) 0 AC HS SUBQ Albuterol/Ipratropium (DUONEB) 3 ML RTQ4H NEB Tamsulosin HCl (Flomax 0.4 mg) 0.8 MG BEDTIME PO Acetaminophen (TYLENOL) 650 MG Q4H PRN PRN PO Hydrocodone Bitart/Acetaminophen (NORCO 5/325) 1 TAB Q4H PRN PRN PO Morphine Sulfate (morphine SULFATE) 4 MG Q4H PRN PRN IV Ondansetron HCl (ZOFRAN) 4 MG Q4H PRN PRN IV Physical ExamGeneral appearance: alert, awake, oriented, no acute distress, pleasantHead/eyes: atraumatic, normocephalic, PERRL, EOMINeck: no JVD, no lymphadenopathyCardiovascular: normal heart sounds, normal S1/S2, regular rate rhythmRespiratory/chest: decreased breath sounds, on oxygen, aerating well, symmetric expansionAbdomen: soft, no guardingExtremities: moves all, no clubbing, no cyanosis, no edemaNeuro/SALES ASSISTANT: CNII-XII intactSkin: dry, intactUlcer: Type/cause: scab left foot.Psychiatry: normal affect, normal judgment/insight, normal mood ResultsFindings/Data:Laboratory Tests 04/13/23 0620:[Embedded Image Not Available]Laboratory Tests 04/13 04/13 04/13 04/12 [id number] 0620 1635 Chemistry Sodium (134 - 147 mEq/L) 141 Potassium (3.4 - 5.0 mEq/L) 5.0 Chloride (100 - 108 mEq/L) 112 H Carbon Dioxide (21 - 33 mEq/l) 24 Anion Gap (0 - 20) 10 BUN (7 - 18 mg/dL) 13 Creatinine (0.6 - 1.3 mg/dL) 1.2 Glomerular Filtr Rate (70 - 80) 64.3 L Glucose (70 - 110 mg/dL) 173 H POC Glucose (70 - 110 MG/DL) 211 H 170 H 172 H Calcium (8.0 - 10.5 mg/dL) 8.1 Laboratory Tests 04/13 620 Coagulation Heparin Anti-Xa, LM Wt (0.60 - 1.00 IU/mL) 0.56 L Laboratory Tests 04/13 620 Hematology WBC (4.5 - 11.0 x10 3/uL) 3.6 L RBC (4.00 - 5.60 x10 6/uL) 3.13 L Hgb (12.5 - 16.9 g/dL) 9.0 L Hct (37.5 - 50.7 %) 29.6 L MCV (81.0 - 99.0 fL) 94.6 MCH (27.0 - 33.0 pg) 28.8 MCHC (33.0 - 37.0 g/dL) 30.4 L RDW (11.5 - 14.5 %) 16.8 H Plt Count (150 - 400 x10 3/uL) 180 MPV (7.0 - 9.0 fL) 10.5 H Neut % (Auto) (56.0 - 77.0 %) 80.5 H Lymph % (Auto) (14.0 - 32.0 %) 8.9 L [place] % (Auto) (4.8 - 9.0 %) 6.7 Eos % (Auto) (0.3 - 3.7 %) 1.7 Baso % (Auto) (0.0 - 2.0 %) 0.8 Neut # (Auto) (2.0 - 7.6 x10 3/uL) 2.90 Lymph # (Auto) (1.0 - 3.8 x10 3/uL) 0.32 L [place] # (Auto) (0.1 - 0.8 x10 3/uL) 0.24 Eos # (Auto) (0.0 - 0.2 x10 3/uL) 0.06 Baso # (Auto) (0.0 - 0.2 x10 3/uL) 0.03 Abs Immat Gran (auto) (0.00 - 0.03 x10 3/uL) 0.05 H Add Manual Diff NO Immature Gran % (0.0 - 2.0 %) 1.4 Nucleated RBC % (0 - 0 %) 0.0 Nucleated RBCs # (Man) (0.0 - 0.1 x10 3/uL) 0.00 Diagnosis, Assessment PlanFree Text A P:Acute on chronic hypoxemic respiratory failure supplemental O2 as needed and wean as tolerated Pulmonary embolism Initially diagnosed in November 2022 at outside hospital; was on Eliquis from diagnosis through February. CTA chest 03/03/2023 was negative for pulmonary embolism. Patient was discharged home 03/13/2023 and told to discontinue taking Eliquis.-D-dimer 1496. -VQ scan with intermediate probability. 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 Check bilateral lower extremity Dopplers -> neg-Renally dose lovenox @ 1mg/kg once daily -d/w cardio. will ultimately AC with eliquis asa and DC plavix. Continue lovenox for now. COPD No exacerbation. On Combivent and ipratropium nebs at home.-May need repeat pulmonary function test outpatient. Follows with the OR but looking for civilian patient registration specialist due to issues with the [facility] RLL nodule CT chest 03/03/2023. 1.5 x 0.8 cm nodular opacity in RLL needs follow-up in 3 months CAD / PAD S/p CABG 03/04/2023 Cardiothoracic surgery following Pending echo- will need periph angio when cr improved JERAMY/CKD Nephrology consult Strict I O. 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 I agree with the findings and plan as documented by Ezra Goodwin PA-C. at 1401 at 1744 RPT #:[id number] OF REPORTPRProgress [id number]:56:00G.[id number] able for patient goiiSKQFCRNHCDPNMV8795-70-64W19:01:25 [facility] 2023-04-13 11:45:00 [id number] iOJwYKZLS0Xm+5iJ0lrqVmCAfTDi+ TWy5aajfoN0ayW3a47fFgbOsgPO1419-32-03J25:45:00 [facility])Nephrology Progress NoteREPORT#:[id number] REPORT STATUS: SignedDATE:04/13/23 TIME: 1145 PATIENT: TEVIN NYE UNIT #: [id number]#: [id number] [address] [birth year] AGE: 73 SEX: M ATTEND: Elvie Gamboa [facility] AUTHOR: Sg More MD * ALL edits or amendments must be made on the electronic/computer document * SubjectiveChief complaint:Follow-up of acute renal failure, ATN/AIN Objective GeneralVS/I O:Vital Signs: Date Time Temp Pulse Resp B/P B/P Pulse O2 O2 Flow FiO2 Mean Ox Delivery Rate 04/13 902 99 Nasal 3 cannula 04/13 0808 98.1 69 17 157/69 98.2 99 Nasal 3.50 cannula 04/13 0543 97.7 48 16 160/64 95.7 97 Room air 04/13 0049 98.1 86 16 145/71 95.8 98 Nasal cannula 04/12 1942 98.1 51 16 135/61 85.5 100 04/12 1940 95 Nasal 2 cannula 04/12 1635 97.9 38 15 148/62 90.4 97 24 hour I O ending at 0700: 04/13 0700 04/12 1900 Intake Total 100 500 Output Total 500 Balance 100 0 Intake, Oral 100 500 Number Voids 1 Output, Urine 500 PATIENT WEIGHT: Weight (lb): Weight (oz): Weight (kg): 86.200 MedicationsActive Meds + DC'd Last 24 HrsFurosemide (LASIX 20MG INJ) 20 MG ONCE ONE IV (UNV) Enoxaparin Sodium (lovENOX) 95 MG Q24H SUBQ (CAN) Enoxaparin Sodium (lovENOX) 85 MG Q12H SUBQ Metoprolol Tartrate (LOPRESSOR) 25 MG Q8HR PO Atorvastatin Calcium (LIPITOR) 40 MG 2100 PO Lactulose (LACTULOSE) 20 GM BID PRN PRN PO Miscellaneous Information (LOVENOX PHARMACY TO DOSE) 1 EACH ASDIR SUBQ (CKD) Sterile Water (WATER FOR IRRIGATION) DRESSING CHANGE ASDIR PRN IRR Sodium Chloride (SODIUM CHLORIDE 0.9%) 1,000 ML .[id number] IV (DCr) Aspirin (ASPIRIN) 81 MG DAILY PO Fluoxetine HCl (PROzac) 10 MG QAM PO Insulin Human Lispro (HUMALOG) 0 AC HS SUBQ Albuterol/Ipratropium (DUONEB) 3 ML RTQ4H NEB Tamsulosin HCl (Flomax 0.4 mg) 0.8 MG BEDTIME PO Acetaminophen (TYLENOL) 650 MG Q4H PRN PRN PO Hydrocodone Bitart/Acetaminophen (NORCO 5/325) 1 TAB Q4H PRN PRN PO Morphine Sulfate (morphine SULFATE) 4 MG Q4H PRN PRN IV Ondansetron HCl (ZOFRAN) 4 MG Q4H PRN PRN IV Physical ExamGeneral appearance: alert, awakeHead/eyes: atraumatic, normocephalicENT: moist mucous membranesNeck: supple/no meningismus, no JVDCardiovascular: normal heart sounds, no rubRespiratory: aerating well, clear to auscultationGenitourinary: no bladder distentionExtremities: no edemaNeuro/SALES ASSISTANT: alert, oriented X 3Ulcer: Type/cause: scab left foot. ResultsFindings/Data:Laboratory Tests 04/13 04/13 04/12 0803 0620 1635 Chemistry Sodium (134 - 147 mEq/L) 141 Potassium (3.4 - 5.0 mEq/L) 5.0 Chloride (100 - 108 mEq/L) 112 H Carbon Dioxide (21 - 33 mEq/l) 24 Anion Gap (0 - 20) 10 BUN (7 - 18 mg/dL) 13 Creatinine (0.6 - 1.3 mg/dL) 1.2 Glomerular Filtr Rate (70 - 80) 64.3 L Glucose (70 - 110 mg/dL) 173 H POC Glucose (70 - 110 MG/DL) 170 H 172 H Calcium (8.0 - 10.5 mg/dL) 8.1 Laboratory Tests 04/13 620 Coagulation Heparin Anti-Xa, LM Wt (0.60 - 1.00 IU/mL) 0.56 L Laboratory Tests 04/13 620 Hematology WBC (4.5 - 11.0 x10 3/uL) 3.6 L RBC (4.00 - 5.60 x10 6/uL) 3.13 L Hgb (12.5 - 16.9 g/dL) 9.0 L Hct (37.5 - 50.7 %) 29.6 L MCV (81.0 - 99.0 fL) 94.6 MCH (27.0 - 33.0 pg) 28.8 MCHC (33.0 - 37.0 g/dL) 30.4 L RDW (11.5 - 14.5 %) 16.8 H Plt Count (150 - 400 x10 3/uL) 180 MPV (7.0 - 9.0 fL) 10.5 H Neut % (Auto) (56.0 - 77.0 %) 80.5 H Lymph % (Auto) (14.0 - 32.0 %) 8.9 L [place] % (Auto) (4.8 - 9.0 %) 6.7 Eos % (Auto) (0.3 - 3.7 %) 1.7 Baso % (Auto) (0.0 - 2.0 %) 0.8 Neut # (Auto) (2.0 - 7.6 x10 3/uL) 2.90 Lymph # (Auto) (1.0 - 3.8 x10 3/uL) 0.32 L [place] # (Auto) (0.1 - 0.8 x10 3/uL) 0.24 Eos # (Auto) (0.0 - 0.2 x10 3/uL) 0.06 Baso # (Auto) (0.0 - 0.2 x10 3/uL) 0.03 Abs Immat Gran (auto) (0.00 - 0.03 x10 3/uL) 0.05 H Add Manual Diff NO Immature Gran % (0.0 - 2.0 %) 1.4 Nucleated RBC % (0 - 0 %) 0.0 Nucleated RBCs # (Man) (0.0 - 0.1 x10 3/uL) 0.00 Diagnosis, Assessment PlanFree Text A P:Assessment/plan:1. Acute renal failure most likely secondary to volume depletion, overdiuresis and ATN/AIN with Bactrim and lisinopril on board. Cr further better 2.9-2.4-1.9> 1.2 today, renal sono reviewed, urine proten/cr ratio 0.4more SOB with exersion > DC IVF and gave laix 20 mg X 1 on 04/13. 2. Coronary artery disease: Status post CABG, continue home medications 3. COPD: Symptomatic treatment 4. History of prostate cancer, s/p radiation 2021 5. Anemia: Requested stool occult blood-not sent yet, and iron studies reviewed-ok, transfuse as needed for hemoglobin less than 7. pending rehab. stable from nephrology for discharge. at 1149 RPT #:[id number] OF REPORTPRProgress [id number]:45:00G.[id number] able for patient isolBGGGXKYWTHLBWX0341-82-21V72:50:01 [facility] 2023-04-13 07:29:00 [id number] C1dUzyN2OlwRoFTW/MrqbHe4M26tt fWTfekNFN9q+phvSs0nkvHqplPj4832-67-73I92:29:00 [facility] ([facility])Cardiothoracic Surgery ProgRNEWPORT HOSPITAL#:[id number] REPORT STATUS: SignedDATE:04/13/23 TIME: 728 PATIENT: TEVIN NYE UNIT #: [id number]#: [id number] ROOM/BED: 5517-1DOB: [birth year] AGE: 73 SEX: M ATTEND: Elvie Gamboa [facility] AUTHOR: Evon Andrew Physic * ALL edits or amendments must be made on the electronic/computer document * GeneralStatus post:03/04/2023 CABG x 4 (MCCORMICK-LAD,SVG-Renea, SVG-OM, SVG-PDA SubjectiveChief complaint:Resting comfortable. Review of SystemsConstitutional:Denies: fever, generalized weakness. Respiratory:Reports: SOB. Cardiovascular:Reports: [place] (dyspnea on exertion). Denies: chest pain, edema. GI:Denies: constipation, diarrhea. Musculoskeletal:Denies: joint pain, joint swelling. Heme:Denies: bleeding, bruising. Endocrine:Denies: polydipsia, polyuria. Neuro:Denies: dizziness. Psych:Denies: agitation, anxiety. All systems rev neg: except as marked Objective Physical ExamGeneral appearance: alert, awake, orientedHEENT: mucosal membranes moistCardiovascular: regular rate rhythmRespiratory: aerating well, clear to auscultationAbdomen: soft, non-tenderExtremities: dry, moves allMusculoskeletal: full range of motionNeuro/SALES ASSISTANT: alert, oriented X 3Skin: dry, intactUlcer: Type/cause: scab left foot. Diagnosis, Assessment PlanHospital course to date:This is a 73-year-old gentleman with past medical history of coronary artery disease status post coronary artery bypass graft surgery on 3CABG x 4 (MCCORMICK-LAD,SVG-Renea, SVG-OM, SVG-PDA) Patient was DC'd home on 03/13/2023. He was DC'd home on home oxygen for findingsconsistent with COPD. The patient reports over the past few weeks he has experienced increased shortness of breath with exertion.The patient denies any lower extremity edema and in fact reports his lower extremity edema has slightly improved since his hospital stay. The patient presented to hospital on [facility] for evaluation of shortness ofbreath. During his hospitalization for coronary bypass graft surgery the patient's creatinine wero to 3 and came down to baseline of 1.6.His admission creatinine today 2.9 The patient denies any chest pains, denies any palpitations. Assessment/plan1. Coronary artery disease Status post coronary bypass graft surgery . CKD Consult renal3. COPD4. Shortness of breath Sternal wound is clean and dry. There is no signs of infection. Sternum is stable.Left leg wound graft site also clean and dry no signs of infection We will obtain echocardiogram, cardiac consultation and renal consultation.Continue daily labsDaily chest x-rayWe will continue to follow 04/09/23Patient resting comfortableON 2 L NCLabs reviewedElevated Creatine. Nephrology consulted.Awaiting echo-Cardiology consulted. COPD, will consult pulmonaryPatient was seen and examined by Dr. Villeda. Continue supportive care 04/10/23Patient resting comfortableDenies complaints, feeling betterCreatinine improving, renal following. Given IV fluidsRestart back on Eliquis as per pulmonary recommendation due to history of PE, DC PlavixEchocardiogram completed showing EF 55-59%, Trivial pericardial effusionCOPD, pulmonary followingContinue supportive care. 04/11/23Patient resting comfortable, denies chest pains, denies shortness of breathCreatinine improving, renal followingShortness of breath improvedRestarted on patient's Eliquis. History of PEs followed by pulmonaryPatient doing well.Discharge planning in progress as per multidisciplinary teams.No CV surgical indicationPatient was seen and examined by Dr. Villeda 04/12/23Patienr resting comfortable. Denies complaintsFeeling betteron 2 L NC. Shortness of breath improved. Renal function improved. Disposisiton will be rehab. at 0732 at 0726 RPT #:[id number] OF REPORTPRProgress [id number]:29:00G.[id number] able for patient lkpnSZASNVOBIEVDEO4484-42-91S27:33:14 [facility] 2023-04-12 15:35:00 [id number]/ [id number]+mdZhvc2gT wui11DAmgcZ5oHxcFFUvx1LQeGE0496-70-04X71:35:00 [facility] ([facility])Hospitalist Progress NoteREPORT#:[id number] REPORT STATUS: SignedDATE:04/12/23 TIME: 153 PATIENT: TEVIN NYE UNIT #: [id number]#: [id number] [address] [birth year] AGE: 73 SEX: M ATTEND: Elvie Gamboa AUTHOR: Elvie Gamboa MD * ALL edits or amendments must be made on the electronic/computer document * SubjectiveChief complaint: feeling better. back to home oxygenHPI:Patient is a 73-year-old male with past medical history of CAD s/p CABG by Dr. Villeda 03/03/2028, pulmonary embolism in November 2022, prostate cancer s/p radiation 2021, former smoker with COPD on home oxygen. Patient presenting for shortness of breath. no fevers, chills or sweats. no other comPatient is a 73-year-old male with past medical history of CAD s/p CABG by Dr. Villeda 03/03/2028, pulmonary embolism in November 2022, prostate cancer s/p radiation 2021, former smoker with COPD on home oxygen. Patient presenting for shortness of breath. Labs and imaging obtained have been personally reviewed. Objective GeneralVS/I O:Vital Signs: Date Time Temp Pulse Resp B/P B/P Pulse O2 O2 Flow FiO2 Mean Ox Delivery Rate 04/12 1050 97.9 71 16 142/60 87.7 99 04/12 0900 Nasal 2 cannula 04/12 0711 97.7 70 16 143/68 93.1 96 04/12 0415 97.7 63 14 139/66 90.5 96 04/12 0349 96 Nasal 2 cannula 04/12 0000 97.9 68 14 143/64 90.1 95 04/11 2028 98 Nasal 2 cannula 04/11 1947 98.1 84 14 152/68 96.4 98 04/11 1733 97.2 97 14 140/64 89.4 98 Room air 24 hour I O ending at 0700: 04/12 0700 04/11 1900 Intake Total 100 Output Total 830 600 Balance -730 -600 Intake, Oral 100 Output, Urine 830 600 PATIENT WEIGHT: Weight (lb): Weight (oz): Weight (kg): 86.200 Medications:Active Meds + DC'd Last 24 HrsEnoxaparin Sodium (lovENOX) 95 MG Q24H SUBQ Metoprolol Tartrate (LOPRESSOR) 25 MG Q8HR PO Atorvastatin Calcium (LIPITOR) 40 MG 2100 PO Lactulose (LACTULOSE) 20 GM BID PRN PRN PO Enoxaparin Sodium (lovENOX) 86 MG Q24H SUBQ (DC) Miscellaneous Information (LOVENOX PHARMACY TO DOSE) 1 EACH ASDIR SUBQ (CKD) Sterile Water (WATER FOR IRRIGATION) DRESSING CHANGE ASDIR PRN IRR Sodium Chloride (SODIUM CHLORIDE 0.9%) 1,000 ML .V28Y26L IV Aspirin (ASPIRIN) 81 MG DAILY PO Fluoxetine HCl (PROzac) 10 MG QAM PO Insulin Human Lispro (HUMALOG) 0 AC HS SUBQ Albuterol/Ipratropium (DUONEB) 3 ML RTQ4H NEB Tamsulosin HCl (Flomax 0.4 mg) 0.8 MG BEDTIME PO Acetaminophen (TYLENOL) 650 MG Q4H PRN PRN PO Hydrocodone Bitart/Acetaminophen (NORCO 5/325) 1 TAB Q4H PRN PRN PO Morphine Sulfate (morphine SULFATE) 4 MG Q4H PRN PRN IV Ondansetron HCl (ZOFRAN) 4 MG Q4H PRN PRN IV Physical ExamGeneral appearance: no acute distressHead/Eyes: atraumatic, clear cornea, EOMINeck: supple/no meningismusCardiovascular: normal heart sounds, regular rate rhythm, no gallop, no murmur, no rubRespiratory: aerating well, clear to auscultation, symmetric expansionAbdomen: non-tender, normal bowel sounds, soft, no distentionExtremities: no clubbing, no cyanosis, no edemaMusculoskeletal: normal inspection, painless range of motionNeuro/SALES ASSISTANT: alert, oriented X 3, CNII-XII intactSkin: dry, intactUlcer: Type/cause: scab left foot. ResultsFindings/Data:Laboratory Tests 04/12 04/12 04/12 04/11 04/11 1050 0713 0450 1940 1731 Chemistry Sodium (134 - 147 mEq/L) 143 Potassium (3.4 - 5.0 mEq/L) 4.4 Chloride (100 - 108 mEq/L) 111 H Carbon Dioxide (21 - 33 mEq/l) 25 Anion Gap (0 - 20) 12 BUN (7 - 18 mg/dL) 20 H Creatinine (0.6 - 1.3 mg/dL) 1.3 Glomerular Filtr Rate (70 - 80) 58.4 L Glucose (70 - 110 mg/dL) 171 H POC Glucose (70 - 110 MG/DL) 139 H 178 H 255 H 214 H Calcium (8.0 - 10.5 mg/dL) 8.3 Total Bilirubin (0.0 - 1.0 mg/dL) 0.20 AST (15 - 37 IUnit/L) 16 ALT (30 - 65 IUnit/L) 17 L Total Alk Phosphatase (20 - 125 IUnit/L) 102 Total Protein (6.4 - 8.2 g/dL) 6.5 Albumin (3.4 - 5.0 g/dL) 2.90 L Laboratory Tests 04/11 2240 Coagulation Heparin Anti-Xa, LM Wt (0.60 - 1.00 IU/mL) 0.76 Laboratory Tests 04/12 0450 Hematology WBC (4.5 - 11.0 x10 3/uL) 4.2 L RBC (4.00 - 5.60 x10 6/uL) 3.35 L Hgb (12.5 - 16.9 g/dL) 9.7 L Hct (37.5 - 50.7 %) 31.9 L MCV (81.0 - 99.0 fL) 95.2 MCH (27.0 - 33.0 pg) 29.0 MCHC (33.0 - 37.0 g/dL) 30.4 L RDW (11.5 - 14.5 %) 16.3 H Plt Count (150 - 400 x10 3/uL) 220 MPV (7.0 - 9.0 fL) 10.6 H Neut % (Auto) (56.0 - 77.0 %) 80.9 H Lymph % (Auto) (14.0 - 32.0 %) 8.1 L [place] % (Auto) (4.8 - 9.0 %) 6.2 Eos % (Auto) (0.3 - 3.7 %) 2.4 Baso % (Auto) (0.0 - 2.0 %) 1.0 Neut # (Auto) (2.0 - 7.6 x10 3/uL) 3.40 Lymph # (Auto) (1.0 - 3.8 x10 3/uL) 0.34 L [place] # (Auto) (0.1 - 0.8 x10 3/uL) 0.26 Eos # (Auto) (0.0 - 0.2 x10 3/uL) 0.10 Baso # (Auto) (0.0 - 0.2 x10 3/uL) 0.04 Abs Immat Gran (auto) (0.00 - 0.03 x10 3/uL) 0.06 H Add Manual Diff NO Immature Gran % (0.0 - 2.0 %) 1.4 Nucleated RBC % (0 - 0 %) 0.0 Nucleated RBCs # (Man) (0.0 - 0.1 x10 3/uL) 0.00 Diagnosis, Assessment Plan Free Text DxA P NotesFree text DxA P notes:SOBcardiology and pulmonary seenon 2 liters of oxygen per n/cecho wnl elevated D-dimerV-Q scan with intermediate probabilityon therapeutic lovenox renally dosed for now JERAMY with CKDrenal seenon IVFcreat improving COPDon home oxygen h/o CADs/p CABG X4 on 3CTS consulted and seen DMaccuchecks and SSI prncheck A1CBG controlled HTNbp controlledresumed home meds HLDon statinstable Prostate cancers/p XRT anemiahgb stable Debilityper PT/OT could be a post acute rehab candidate consulted rehabrecommend IRF follow labsf/up wiht DR. Rinaldi at 1538 RPT #:[id number] OF REPORTPRProgress [id number]:35:00G.[id number] able for patient eijqZZYWXIAJSDFNKF7551-45-95V45:38:21 [facility] 2023-04-12 15:01:00 [id number]/A Wv2/Ry2WDnt3vqsnhpDCF2JEMPqyb g1lE46OO6scyflGajfSqbsWVIQL0799-17-68O39:01:00 [facility] ([facility])Pulmonology Progress NoteREPORT#:[id number] REPORT STATUS: SignedDATE:04/12/23 TIME: 1501 PATIENT: TEVIN NYE UNIT #: [id number]#: [id number] [address] [birth year] AGE: 73 SEX: M ATTEND: Elvie Gamboa [facility] AUTHOR: David Goodwin PA * ALL edits or amendments must be made on the electronic/computer document * David Goodwin 04/12/23 1501:SubjectiveChief complaint:sobHPI:Coverage for Dr. Alan. Seen and examined, events noted.h/h slowly downtrendingreports small amount of blood in stool on O2 via NCless sobROS neg f/c, n/v, cpPatient reports:Yes: feeling better, resting comfortably. No: chest pain, congestion, cough, pain, shortness of breath, sputum. Comments:Seen and examined, events noted. Doing wel, no new issues or c/o. ROS: Denies CP, SOB, cough, congestion, N/V/C/D, GARCIA, chills Objective GeneralVS/I O:Last Documented: Result Date Time Pulse Ox 99 04/12 1050 B/P 142/60 04/12 1050 B/P Mean 87.7 04/12 1050 Temp 36.6 04/12 1050 Pulse 71 04/12 1050 Resp 16 04/12 1050 O2 Delivery Nasal cannula 04/12 09 O2 Flow Rate 2 04/12 0900 FiO2 28 04/10 0800 24 hour I O ending at 0700: 04/12 0700 08 1900 Intake Total 100 Output Total 830 600 Balance -730 -600 Intake, Oral 100 Output, Urine 830 600 PATIENT WEIGHT: Weight (lb): Weight (oz): Weight (kg): 86.200 Medications:Active Meds + DC'd Last 24 HrsEnoxaparin Sodium (lovENOX) 95 MG Q24H SUBQ Metoprolol Tartrate (LOPRESSOR) 25 MG Q8HR PO Atorvastatin Calcium (LIPITOR) 40 MG 2100 PO Lactulose (LACTULOSE) 20 GM BID PRN PRN PO Enoxaparin Sodium (lovENOX) 86 MG Q24H SUBQ (DC) Miscellaneous Information (LOVENOX PHARMACY TO DOSE) 1 EACH ASDIR SUBQ (CKD) Sterile Water (WATER FOR IRRIGATION) DRESSING CHANGE ASDIR PRN IRR Sodium Chloride (SODIUM CHLORIDE 0.9%) 1,000 ML .F61S33T IV Aspirin (ASPIRIN) 81 MG DAILY PO Fluoxetine HCl (PROzac) 10 MG QAM PO Insulin Human Lispro (HUMALOG) 0 AC HS SUBQ Albuterol/Ipratropium (DUONEB) 3 ML RTQ4H NEB Tamsulosin HCl (Flomax 0.4 mg) 0.8 MG BEDTIME PO Acetaminophen (TYLENOL) 650 MG Q4H PRN PRN PO Hydrocodone Bitart/Acetaminophen (NORCO 5/325) 1 TAB Q4H PRN PRN PO Morphine Sulfate (morphine SULFATE) 4 MG Q4H PRN PRN IV Ondansetron HCl (ZOFRAN) 4 MG Q4H PRN PRN IV Physical ExamGeneral appearance: alert, awake, oriented, no acute distressHead/eyes: atraumatic, normocephalic, PERRL, EOMINeck: no JVD, no lymphadenopathyCardiovascular: normal heart sounds, normal S1/S2, regular rate rhythmRespiratory/chest: decreased breath sounds, on oxygen, aerating well, symmetric expansionAbdomen: soft, no guardingExtremities: moves all, no clubbing, no cyanosis, no edemaNeuro/SALES ASSISTANT: CNII-XII intactSkin: dry, intactUlcer: Type/cause: scab left foot.Psychiatry: normal affect, normal judgment/insight, normal mood ResultsFindings/Data:Laboratory Tests 04/12/23 0450:[Embedded Image Not Available]Laboratory Tests 04/12 04/12 04/12 04/11 04/11 1050 0713 0450 1940 1731 Chemistry Sodium (134 - 147 mEq/L) 143 Potassium (3.4 - 5.0 mEq/L) 4.4 Chloride (100 - 108 mEq/L) 111 H Carbon Dioxide (21 - 33 mEq/l) 25 Anion Gap (0 - 20) 12 BUN (7 - 18 mg/dL) 20 H Creatinine (0.6 - 1.3 mg/dL) 1.3 Glomerular Filtr Rate (70 - 80) 58.4 L Glucose (70 - 110 mg/dL) 171 H POC Glucose (70 - 110 MG/DL) 139 H 178 H 255 H 214 H Calcium (8.0 - 10.5 mg/dL) 8.3 Total Bilirubin (0.0 - 1.0 mg/dL) 0.20 AST (15 - 37 IUnit/L) 16 ALT (30 - 65 IUnit/L) 17 L Total Alk Phosphatase (20 - 125 IUnit/L) 102 Total Protein (6.4 - 8.2 g/dL) 6.5 Albumin (3.4 - 5.0 g/dL) 2.90 L Laboratory Tests 04/11 2240 Coagulation Heparin Anti-Xa, LM Wt (0.60 - 1.00 IU/mL) 0.76 Laboratory Tests 04/12 0450 Hematology WBC (4.5 - 11.0 x10 3/uL) 4.2 L RBC (4.00 - 5.60 x10 6/uL) 3.35 L Hgb (12.5 - 16.9 g/dL) 9.7 L Hct (37.5 - 50.7 %) 31.9 L MCV (81.0 - 99.0 fL) 95.2 MCH (27.0 - 33.0 pg) 29.0 MCHC (33.0 - 37.0 g/dL) 30.4 L RDW (11.5 - 14.5 %) 16.3 H Plt Count (150 - 400 x10 3/uL) 220 MPV (7.0 - 9.0 fL) 10.6 H Neut % (Auto) (56.0 - 77.0 %) 80.9 H Lymph % (Auto) (14.0 - 32.0 %) 8.1 L [place] % (Auto) (4.8 - 9.0 %) 6.2 Eos % (Auto) (0.3 - 3.7 %) 2.4 Baso % (Auto) (0.0 - 2.0 %) 1.0 Neut # (Auto) (2.0 - 7.6 x10 3/uL) 3.40 Lymph # (Auto) (1.0 - 3.8 x10 3/uL) 0.34 L [place] # (Auto) (0.1 - 0.8 x10 3/uL) 0.26 Eos # (Auto) (0.0 - 0.2 x10 3/uL) 0.10 Baso # (Auto) (0.0 - 0.2 x10 3/uL) 0.04 Abs Immat Gran (auto) (0.00 - 0.03 x10 3/uL) 0.06 H Add Manual Diff NO Immature Gran % (0.0 - 2.0 %) 1.4 Nucleated RBC % (0 - 0 %) 0.0 Nucleated RBCs # (Man) (0.0 - 0.1 x10 3/uL) 0.00 Diagnosis, Assessment PlanFree Text A P:Acute on chronic hypoxemic respiratory failure supplemental O2 as needed and wean as tolerated Pulmonary embolism Initially diagnosed in November 2022 at outside hospital; was on Eliquis from diagnosis through February. CTA chest 03/03/2023 was negative for pulmonary embolism. Patient was discharged home 03/13/2023 and told to discontinue taking Eliquis.-D-dimer 1496. -VQ scan with intermediate probability. 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 Check bilateral lower extremity Dopplers -> neg-Renally dose lovenox @ 1mg/kg once daily -d/w cardio. will ultimately AC with eliquis asa and DC plavix. Continue lovenox for now. COPD No exacerbation. On Combivent and ipratropium nebs at home.-May need repeat pulmonary function test outpatient. Follows with the OR but looking for civilian patient registration specialist due to issues with the [facility] RLL nodule CT chest 03/03/2023. 1.5 x 0.8 cm nodular opacity in RLL needs follow-up in 3 months CAD / PAD S/p CABG 03/04/2023 Cardiothoracic surgery following Pending echo- will need periph angio when cr improved JERAMY/CKD Nephrology consult Strict I O. Measure UOP.- IVF Follow labs History of prostate cancer S/p radiation in 2021 Christiano Gutierrez 04/12/23 2156:Attestations Physician AttestationAgree w/findings plan:Seen and examined. I agree with the findings and plan as documented by Ezra Goodwin PA-C. at 1502 at 2159 RPT #:[id number] OF REPORTPRProgress [id number]:01:00G.[id number] able for patient [id number]:02:36 [facility] 2023-04-12 09:09:00 [id number] pxCbHlvi+ahY/[id number] TEMYd7wR30cCMPw57bAY+zgCj7S0573-05-49L70:09:00 [facility] CenterCard[facility] Progress NoteREPORT#:[id number] REPORT STATUS: SignedDATE:04/12/23 TIME: 908 PATIENT: TEVIN NYE UNIT #: [id number]#: [id number] [address] AGE: 73 SEX: M ATTEND: Elvie Gamboa MDADM AUTHOR: Daniela Mari AGACNP * ALL edits or amendments must be made on the electronic/computer document * SubjectivePatient reports:No: complaints. Objective GeneralVS/I O:24 hour I O ending at 0700: 0805 0700 08/ 1900 Intake Total 100 Output Total 830 600 Balance -730 -600 Intake, Oral 100 Output, Urine 830 600 Vital Signs: Date Time Temp Pulse Resp B/P B/P Pulse O2 O2 Flow FiO2 Mean Ox Delivery Rate 04/12 0711 36.5 70 16 143/68 93.1 96 04/12 0415 36.5 63 14 139/66 90.5 96 04/12 0349 96 Nasal 2 cannula 04/12 0000 36.6 68 14 143/64 90.1 95 04/11 2028 98 Nasal 2 cannula 04/11 1947 36.7 84 14 152/68 96.4 98 04/11 1733 36.2 97 14 140/64 89.4 98 Room air 04/11 1202 36.4 78 14 106/48 67.0 97 Room air PATIENT WEIGHT: Weight (lb): Weight (oz): Weight (kg): 86.200 Medications:Active Meds + DC'd Last 24 HrsEnoxaparin Sodium (lovENOX) 95 MG Q24H SUBQ Metoprolol Tartrate (LOPRESSOR) 25 MG Q8HR PO Atorvastatin Calcium (LIPITOR) 40 MG 2100 PO Lactulose (LACTULOSE) 20 GM BID PRN PRN PO Enoxaparin Sodium (lovENOX) 86 MG Q24H SUBQ (DC) Miscellaneous Information (LOVENOX [facility]ARMACY TO DOSE) 1 EACH ASDIR SUBQ (CKD) Sterile Water (WATER FOR IRRIGATION) DRESSING CHANGE ASDIR PRN IRR Sodium Chloride (SODIUM CHLORIDE 0.9%) 1,000 ML .[id number] IV Aspirin (ASPIRIN) 81 MG DAILY PO Fluoxetine HCl (PROzac) 10 MG QAM PO Insulin Human Lispro (HUMALOG) 0 AC HS SUBQ Albuterol/Ipratropium (DUONEB) 3 ML RTQ4H NEB Tamsulosin HCl (Flomax 0.4 mg) 0.8 MG BEDTIME PO Acetaminophen (TYLENOL) 650 MG Q4H PRN PRN PO Hydrocodone Bitart/Acetaminophen (NORCO 5/325) 1 TAB Q4H PRN PRN PO Morphine Sulfate (morphine SULFATE) 4 MG Q4H PRN PRN IV Ondansetron HCl (ZOFRAN) 4 MG Q4H PRN PRN IV Physical ExamGeneral appearance: alert, awake, orientedNeck: non-tender, no JVDCardiovascular: CV assessment: ectopy, irregular rhythmRespiratory: decreased breath sounds, no distressAbdomen: soft, non-tender, normal bowel sounds, no distentionGenitourinary: no flank pain, no urinary catheterLower extremity: LE assessment: abnormal pedal pulseMusculoskeletal: normal inspectionNeuro/SALES ASSISTANT: alert, oriented X 3, normal speechSkin: dry, intactUlcer: Type/cause: scab left foot.Psychiatry: normal affect, normal judgment/insight, normal mood ResultsFindings/Data:Laboratory Tests 04/12 04/12 04/11 04/11 04/11 0713 0450 1940 1731 1200 Chemistry Sodium (134 - 147 mEq/L) 143 Potassium (3.4 - 5.0 mEq/L) 4.4 Chloride (100 - 108 mEq/L) 111 H Carbon Dioxide (21 - 33 mEq/l) 25 Anion Gap (0 - 20) 12 BUN (7 - 18 mg/dL) 20 H Creatinine (0.6 - 1.3 mg/dL) 1.3 Glomerular Filtr Rate (70 - 80) 58.4 L Glucose (70 - 110 mg/dL) 171 H POC Glucose (70 - 110 MG/DL) 178 H 255 H 214 H 230 H Calcium (8.0 - 10.5 mg/dL) 8.3 Total Bilirubin (0.0 - 1.0 mg/dL) 0.20 AST (15 - 37 IUnit/L) 16 ALT (30 - 65 IUnit/L) 17 L Total Alk Phosphatase (20 - 125 IUnit/L) 102 Total Protein (6.4 - 8.2 g/dL) 6.5 Albumin (3.4 - 5.0 g/dL) 2.90 L Laboratory Tests 04/11 2240 Coagulation Heparin Anti-Xa, LM Wt (0.60 - 1.00 IU/mL) 0.76 Laboratory Tests 04/12 0450 Hematology WBC (4.5 - 11.0 x10 3/uL) 4.2 L RBC (4.00 - 5.60 x10 6/uL) 3.35 L Hgb (12.5 - 16.9 g/dL) 9.7 L Hct (37.5 - 50.7 %) 31.9 L MCV (81.0 - 99.0 fL) 95.2 MCH (27.0 - 33.0 pg) 29.0 MCHC (33.0 - 37.0 g/dL) 30.4 L RDW (11.5 - 14.5 %) 16.3 H Plt Count (150 - 400 x10 3/uL) 220 MPV (7.0 - 9.0 fL) 10.6 H Neut % (Auto) (56.0 - 77.0 %) 80.9 H Lymph % (Auto) (14.0 - 32.0 %) 8.1 L [place] % (Auto) (4.8 - 9.0 %) 6.2 Eos % (Auto) (0.3 - 3.7 %) 2.4 Baso % (Auto) (0.0 - 2.0 %) 1.0 Neut # (Auto) (2.0 - 7.6 x10 3/uL) 3.40 Lymph # (Auto) (1.0 - 3.8 x10 3/uL) 0.34 L [place] # (Auto) (0.1 - 0.8 x10 3/uL) 0.26 Eos # (Auto) (0.0 - 0.2 x10 3/uL) 0.10 Baso # (Auto) (0.0 - 0.2 x10 3/uL) 0.04 Abs Immat Gran (auto) (0.00 - 0.03 x10 3/uL) 0.06 H Add Manual Diff NO Immature Gran % (0.0 - 2.0 %) 1.4 Nucleated RBC % (0 - 0 %) 0.0 Nucleated RBCs # (Man) (0.0 - 0.1 x10 3/uL) 0.00 Microbiology Date/Time Procedure - Status Source Growth 04/11 0945 MRSA DNA Surveillance Screen - COMP NASAL Results: labs reviewed, vital signs reviewed, rhythm personally rev'dTelemetry Interpretation:sinus rhythtm Diagnosis, Assessment PlanPlan discussed with: patient, family, collaborating MD, nurse Free Text DxA P NotesFree Text DxA P Notes:73 YO male with MHx of CAD s/p CABG less than 1 month ago, COPD, PE. He presentswith generalized weakness and near syncope. Per family the patient was progressively getting weak since being discharged from the hospital post CABG. Yesterday he was noticed to be really weak. The patient remarked he felt he was going to pass out. Other symptoms reported includes SOB, anorexia, LE edema, wound on the dorsum of the right foot. Creatinine elevated at 3, it was 1.6 when he was discharged few weeks ago. D-dimer elevated 1496. He has abnormal pedal pulses. 1. Dyspnea and presyncope likely d/t PE * Hx of PE, elevated D-dimer* Unable to CTA due to elevated creatinine* echocardiogram preserved LVEF* VQ suggestive of pulmonary embolism 2. CAD s/p CABG* stop Plavix, continue baby ASA plus AC of choice by pulmonology* continue BB and statin 3. JERAMY on CKD 2/2 volume depletion* creatinine trending down 3->2.9->2.4->1.9->1.3* resume lisinopril when ok with nephrology* nephrology following 4. Left foot ulcer/abnormal arterial doppler* outpatient peripheral angiogram* podiatry following - wound benign per podiatry 5. Hx of COPD* pulmonary following 6. Acute Pulmonary embolism - recurrent* AC per pulmonology* LE venous doppler no DVT 7. PVCs* continue metoprolol for PVC and CAD Overall doing well.Rehab consultedOkay to transfer to rehab once bed available. MDM by Dr. Haynes. at 1448 at 1822 RPT #:[id number] OF REPORTPRProgress [id number]:09:00G.[id number] able for patient [id number]:48:24 [facility] 2023-04-12 08:15:00 [id number]:15:00 [facility] ([facility]AREAcute Rehab ConsultREPORT#:[id number] REPORT STATUS: SignedDATE:04/12/23 TIME: 814 PATIENT: TEVIN NYE UNIT #: [id number]#: [id number] [address] AGE: 73 SEX: M ATTEND: Bee,Elvie J MDADM AUTHOR: Kelsi Cornelius * ALL edits or amendments must be made on the electronic/computer document * History of Present Illness HPIReason for consult: evaluation of Rehab needsHPI:This patient is a 73 year old male admitted wiht c/o weakness and near syncope. He recently underwent CABG on 03/04/2023. CABG x 4 (MCCORMICK-LAD,SVG-Renea, SVG-OM, SVG-PDA). He was discharged home 03/13/2023. He has been having increased weakness and shortness of breath with exertion. CXR showed emphysematous changesin the right lower lung with prominent peribronchiolar markings. Nuclear pulmonary perfusion imaging with intermediate likelihood ratio for pulmonary embolism. Pulmonary medicine team was consulted. The patient was found to have apulmonary embolism back in November 2022 and placed on Eliquis. CTA of the chest 03/03/2023 was negative. BLE dopplers negative. He was renally dosed for Lovenox. He is now on his home oxygen dose. I have been consulted for input regarding hisphysical medicine and rehabilitation needs. Functional StatusPT evaluation: Primary Diagnosis: CP; SOB; LIGHTHEADED, NEAR SYNCOPE Functional Treatment Diagnosis: Impaired Mobility Impaired Endurance Impaired Gait Referring Physician: Christiano Em MD Physician Orders: EVAL AND TREAT History of Falls: NO RECENT FALLS REPORTED BY PATIENT Weightbearing Restrictions: No Restriction Length of Stay: 3 Height ft: 5 Height in: 7 Chief Complaint: CHEST PAIN AND SOB Pertinent Medical History: Patient is a 73-year-old male with past medical history of CAD s/p CABG by Dr. Villeda 03/03/2023, pulmonary embolism in November 2022, prostate cancer s/p radiation 2021, former smoker with COPD on home oxygen. Information Provided By: Chart Patient Pertinent Surgical History: SEE SURGCAL HISTORY (CABG ON 03/05/2023) Precautions: Fall (In Addition to Standard) Cognitive Status: OX4 - P/PL/T/Situation Language Spoken: Mauritian Remote Coders provided: No Prior Level of Function: Independent Home Environment: Single Story House Environmental Details: Tub shower Patient Lives With: Alone Durable Medical Equipment Pre-Hospitalization: O2 AT HOME CANE OCCASIONALLY Medical Appliances/Devices: I.V. Line(s) O2 2 LITERS System Evaluation/Within Functional Limits Assessment Data: MUSCULOSKELETAL WFL: No NEUROLOGICAL WFL: Yes LIGHT TOUCH SENSATION WFL: Yes FUNCTIONAL MOBILITY WFL: No VISUAL WFL: Yes HEARING WFL: Yes INTEGUMENTARY WFL: Not tested SKIN ALTERATION CMT: SEE NURSING ASSESMENT CARDIORESPIRATORY WFL: No EDEMA PRESENT: No Plan of Care, Type: Physical Therapy Review Plan of Care: Yes Plan of Care - LT ST Goals: Yes Treatment Details: Yes Enter PT Clarification Orders: Yes Patient/Caregiver informed of Risks of not participating in Physical Therapy: Y Patient/Caregiver informed of Benefits of participating in Physical Therapy: Y Increased/improved functional performance: Y Prevention or promotion of wellness: Y Improved quality of life: Y Functioning at age appropriate level: Y Patient agrees to comply: Y Patient/Family Goals: RETURN HOME Modified Mary Score: No Rehabilitation Potential: Good Post [place] Precautions: FALL Post [place] Comments: PATIENT COULD AMBULATE 100 FEET USING RW WITH MIN ASSIST, O2 DROPPED TO 90 ON ROOM AIR AND WAS UP TO 95% UPON RELACING O2. Therapist recommended discharge needs: PostAcute Document Pain/Education: No Evaluation Type: High Complexity Reason for Eval Complexity: Multiple Comorbidities Impaired Gait Impaired Strength Impaired Endurance PT charges: Eval PT High Comp [id number] If this is the patient's last treatment, this entry serves as the discharge summary: Y Start Time: 1038 Stop Time: 1057 Eval Time(min): 0:19 Completed by: Marialuisa Whalen Supervising Therapist: Sebastian Hawkins Reviewed and Approved By: SEBASTIAN FLORES, PT MUSCULOSKELETAL MUSCULOSKELETAL Items determined to be OUTSIDE the Functional Limits are as follows: RANGE OF MOTION (Degrees): Active unless otherwise noted UPPER EXTREMITIES: Yes Upper Extremity Measurements and Comments: WFL LOWER EXTREMITIES: Yes Lower Extremity Measurements and Comments: WFL SPINE: Yes Spine Measurements and Comments: WFL Items determined to be OUTSIDE the Functional Limits are as follows: OBSERVED MUSCLE STRENGTH: Yes RIGHT UPPER EXTREMITY: Yes RUE Muscle Strength and Comments: 4/5 GROSSLY LEFT UPPER EXTREMITY: Yes LUE Muscle Strength and Comments: 4/5 GROSSLY RIGHT LOWER EXTREMITY: Yes RLE Muscle Strength and Comments: 4/5 GROSSLY LEFT LOWER EXTREMITY: Yes LLE Muscle Strength and Comments: 4/5 GROSSLY Specific Muscle Testing Comments / Specific Comments: Generalized Weakness NEUROLOGICAL NEUROLOGICAL Items determined to be OUTSIDE the Functional Limits are as follows: Items determined to be OUTSIDE the Functional Limits are as follows: Items determined to be OUTSIDE the Functional Limits are as follows: SENSATION LIGHT TOUCH SENSATION Items determined to be OUTSIDE the Functional Limits are as follows: FUNCTIONAL MOBILITY Mobility: How much help from another person does the patient currently need: Turning from your back to your side in a flat bed without using bedrails? 4 Moving from lying on your back to sitting on the side of a flat bed without using bedrails: 4 Moving to and from a bed to a chair, including wheelchair: 3 Standing up from a chair using your arms (wheelchair, bedside chair); 3 To walk in hospital room? 3 [facility] Mobility Score: 17 FUNCTIONAL MOBILITY Items determined to be OUTSIDE the Functional Limits are as follows: BED MOBILITY: Yes Rolling Right/Left: Independent Supine to Sit: Independent Sit to Supine: Independent Scooting in bed: Independent TRANSFERS: Yes Bed to/from chair: Supervision or Set-up Sit to/from stand: Supervision or Set-up Items determined to be OUTSIDE the Functional Limits are as follows: BALANCE: Yes Static Standing: Supervision or Set-up Dynamic Standing: Supervision or Set-up Static Sitting: Independent Dynamic Sitting: Independent Patient Ambulatory: Yes Gait Assist: Minimal Assistance Gait Device RW Ambulation Distance: 100 FEET Gait Deviations: SHORT STEPS FLEXED FORWARD Antalgic Gait Left Weightbearing: No Restriction Gait Pattern Cmt: TACTILE CUES FOR STABILITY. OT evaluation: Primary Diagnosis: CP; SOB; LIGHTHEADED, NEAR SYNCOPE Treatment Diagnosis: Decreased self care skill Generalized weakness Referring Physician: Christiano Em MD Physician Orders: OT JANIYA MOORE Information Obtained From: Patient Chart Length of Stay: 3 Precautions: Fall (In Addition to Standard) Weight Bearing: No Restriction Durable Medical Equipment Pre-Hospitalization: CANE HOME 02-2L Medical Appliances/Devices: I.V. Line(s) Oxygen Telemetry Pertinent Medical History: PMH: 73-year-old male with a past medical his hypertension, diabetes, hyperlipidemia, CAD status post CABG in March 2023 at our facility, COPD on2 L home oxygen Past Medical History: Reports: COPD, Diabetes mellitus, Hypertension, BPH, Dyslipidemia. Past Surgical History: Reports: Knee procedure, Lung surgery (collapsed lung). Language Spoken: Mauritian Remote Coders Provided: No Hand Preference: Right Hand Prior Level of Function: BROTHER SPV W/ ADLS, SPC OCCASIONALLY, BROTHER (A) W/ IN/OUT TUB PER PT. Home Environment: Single Story House Environmental Details: Tub shower Patient Lives With: Alone Occupation: Retired System Evaluation/Within Functional Limits Assessment Data: UPPER EXTREMITY FUNCTION WFL: No FUNCTIONAL MOBILITY WFL: No ACTIVITIES OF DAILY LIVING WFL: No NEUROLOGICAL WFL: Not tested SENSATION WFL: Yes COGNITION WFL: Yes VISUAL/PERCEPTION WFL: Not tested COMMUNICATION WFL: Yes CARDIORESPIRATORY WFL: No EDEMA Y/N: Not tested INTEGUMENTARY WFL: Not tested SKIN ALTERATION CMT: SEE NURSES NOTES. Plan of Care Type: Occupational Therapy Review Plan of Care: Yes Plan of Care - LT ST Goals: Yes Treatment Details: Yes Enter OT Clarification Orders: Yes Patient/Caregiver informed of Risks of not participating in Occupational Therapy: Y Patient/Caregiver informed of Benefits of participating in Occupational Therapy: Y Therapist recommended discharge needs: PostAcute Rehabilitation Potential: Fair Recommendations: Case Management PT Consult Modified Mary Score: No MR Screening Performed: Discharge Screening Document Pain/Education: No Post [place] Precautions: In Bed, rails Up Bed Alarm [employer] Light in Reach Nursing Notified O2 on Post [place] Comments: PT EDU ON SAFETY/ SELF CARE. Evaluation Type: High Complexity Reason for Eval Complexity: Multiple Comorbidities Document OT charges: EVAL OT HIGH COMP [id number] Comments: PT WOULD BENEFIT FROM SKILLED OT SERVICES TO ADDRESS THE NOTED PERF DEFICITS. If this is the patient's last treatment, this entry serves as the discharge summary: Y Start Time: 0815 Stop Time: 0823 Eval Time (minutes): 0:08 Completed by: Alia Mak UPPER EXTREMETY FUNCTION UPPER BODY FUNCTION Items determined to be outside Functional Limits are as follows: RANGE OF MOTION (Degrees): Active unless otherwise noted RIGHT UPPER EXTREMITY ROM: Yes RUE ROM Measurements and Cmts: WFL LEFT UPPER EXTREMITY ROM: Yes LUE ROM Measurements and Cmts: WFL MANUAL MUSCLE TEST RIGHT UPPER EXTREMITY: Yes Right Upper Extremity Measurements and Cmts: 3+/5 LEFT UPPER EXTREMITY: Yes Left Upper Extremity Measurements and Cmt: 3+/5 Fine Motor Coordination: Normal Gross Motor Coordination: Normal Right Hand Coffee Attendant Strength: Fair Left Hand Coffee Attendant Strength: Fair FUNCTIONAL MOBILITY FUNCTIONAL MOBILITY Items determined to be outside Functional Limits are as follows: Bed Mobility: Supervision or Set-up Rolling Right: Supervision or Set-up Scooting in Bed, Up: Supervision or Set-up Scooting to edge of bed, Right: Supervision or Set-up Scooting to edge of bed, Left: Supervision or Set-up Supine to Sit: Supervision or Set-up Sit to Supine: Supervision or Set-up Sit to Stand: Minimal Assistance Functional Activity Tolerance Sitting Unsupported: 10-20 minutes Standing Supported: 0-10 minutes TRANSFERS Comments: PT AMBULATED ALONG EOB. BALANCE Static Sitting: Good Dynamic Sitting: Fair Static Standing: Fair Dynamic Standing: Fair ACTIVITIES OF DAILY LIVING Activity: How much help from another person does the patient currently need: Putting on and taking off regular lower body clothing? 1 Toileting which includes using toilet, bedpan, or urinal? 3 Putting on and taking off regular upper body clothing? 2 Taking care of personal grooming, such as brushing teeth? 3 [facility] Activity Score: 9 ACTIVITIES OF DAILY LIVING Items determined to be outside Functional Limits areas follows: Upper Body Dressing: Moderate Assistance Lower Body Dressing: Dependent Hygiene/Grooming: Supervision or Set-up Toileting: Supervision or Set-up Comments: URINAL FOR TOILETING. HistoryPast medical history:Reports: COPD, Diabetes mellitus, Hypertension, BPH, Dyslipidemia. Additional medical history:CAD s/p CABG 2022 Pulmonary embolism 2022 COPD Prostate cancer s/p radiation 2021 Hypertension Hyperlipidemia Diabetes Knee surgery Carotid artery stenosis CKDPast surgical history:Reports: Knee procedure, Lung surgery (collapsed lung). Additional surgical history:knee surgeryAdditional family history:noneAlcohol use: Denies EtOH useDrug use: Denies recreational drugsSmoking status for patients 13 years old or older: Former SmokerAdditional social history:LIVES AT HOME ALONE. HIS YOUNGER BROTHER LIVES ACROSS THE STREET. SSH. NO STAIRS. HE WAS IND PLOF. NO DME USED . OCCASSIONAL CANE USED. NO OXYGENMedications:Home Medications:Medication Dose/Rte/Freq Days Qty Entered Last Max Daily Dose Reviewed OXYBUTYNIN (DITROPAN) 5 MG PO BID 03/03/23 04/08/23Strength: 5 MG TAB 1937 1837 FLUoxetine (PROzac) 10 MG PO QAM 03/03/23 04/08/23Strength: 10 MG CAP 1938 1842 LATANOPROST 1 DROP EACH EYE 03/03/23 04/08/23 (XALATAN 0.005% OPHTH BEDTIME 1939 1843 SOLN)Strength: 0.005 %OPHTH.SOLN INSULIN LISPRO 6 03/03/23 04/08/23 (HumaLOG KWIKPEN (3mL)) 1942 1844Strength: 100 UNIT/MLINSULN.PEN CALCIUM CARBONATE/VIT 2 TAB PO DAILY 03/03/23 04/08/23 D3 1944 1836 (CALCIUM CARB/VIT D3 500 MG/200 UNITS)Strength: 500 MGCALCIUM-5 MCG (200 UNIT)TAB CYANOCOBALAMIN 100 MCG PO DAILY 03/03/23 04/08/23 (VITAMIN B-12) 1944 1843Strength: 100 MCG TAB TAMSULOSIN ER (FLOMAX) 0.8 MG PO BEDTIME 2 03/03/23 04/08/23Strength: 0.4 MG 1938 1838CAP.SR.24H INSULIN LISPRO (HumaLOG) 30 03/03/23 04/08/23Strength: 100 UNIT/ML 1943 1844VIAL FUROSEMIDE (LASIX) 20 MG PO BID 04/08/23 04/08/23Strength: 20 MG TAB 184 184 BRIMONIDINE 1 DROP EACH EYE BID 04/08/23 04/08/23 (ALPHAGAN 0.2% OPHTH 1845 1848 SOLN)Strength: 0.2 %OPHTH.SOLN SULFAMETHOXAZOLE/TMP 1 TAB PO BID 04/08/23 04/08/23 (BACTRIM DS 800/160 MG) 1847 1848Strength: 800 MG-160 MGTAB HYDROCHLOROTHIAZIDE 25 MG PO DAILY 04/08/23 04/08/23 (HYDRODIURIL) 1841848Strength: 25 MG TAB LISINOPRIL (ZESTRIL) 20 MG PO DAILY 04/08/23 04/08/23Strength: 20 MG TAB 184 184 ATORVASTATIN (LIPITOR) 40 MG PO 2100 30 30 03/13/23 04/08/23Strength: 40 MG TAB 144 184 METOPROLOL TARTRATE 25 MG PO Q12HR 30 60 03/13/23 04/08/23 (LOPRESSOR) 1446 1842Strength: 25 MG TAB amLODIPine (NORVASC) 10 MG PO DAILY 30 30 03/13/23 04/08/23Strength: 10 MG TAB 1446 1842 ASPIRIN 81 MG PO DAILY 30 03/13/23 04/08/23Strength: 81 MG TAB.CHEW 1447 1836 Current Hospital Medications:Autonomic Drugs Sig/Yas Start time Last Medication Dose Route Stop Time Status Admin Albuterol/Ipratropium 3 ML RTQ4H 04/09 0000 AC 04/12 (DUONEB) NEB 05/09 0000 0349 Tamsulosin HCl 0.8 MG BEDTIME 04/08 2300 AC 04/11 (Flomax 0.4 mg) PO 05/08 2259 2132 Blood Formation,Coagulation Sig/Yas Start time Last Medication Dose Route Stop Time Status Admin Enoxaparin Sodium 95 MG Q24H / 1830 AC (lovENOX) SUBQ 05/12 1829 Enoxaparin Sodium 86 MG Q24H 04/09 1615 DC 04/11 (lovENOX) SUBQ 05/09 1614 1830 Cardiovascular Drugs Sig/Yas Start time Last Medication Dose Route Stop Time Status Admin Metoprolol Tartrate 25 MG Q8HR 04/10 1400 AC 04/11 (LOPRESSOR) PO 05/08 225 2133 Atorvastatin Calcium 40 MG 2100 04/09 2100 AC 04/11 (LIPITOR) PO 05/09 205 2133 Central Nervous System Agents Sig/Yas Start time Last Medication Dose Route Stop Time Status Admin Aspirin 81 MG DAILY 04/09 1015 AC 04/11 (ASPIRIN) PO 05/09 1014 1009 Fluoxetine HCl 10 MG QAM 04/09 0900 AC 04/11 (PROzac) PO 05/09 0859 1009 Acetaminophen 650 MG Q4H PRN PRN 04/08 1800 AC 04/11 (TYLENOL) PO 05/08 1759 2138 Hydrocodone Bitart/ 1 TAB Q4H PRN PRN 04/08 1800 AC Acetaminophen PO 04/13 1759 (NORCO 5/325) Morphine Sulfate 4 MG Q4H PRN PRN / 1800 AC (morphine SULFATE) IV 04/13 1759 Electrolytic, Caloric, And Agata Sig/Yas Start time Last Medication Dose Route Stop Time Status Admin Lactulose 20 GM BID PRN PRN 04/09 1900 AC 04/09 (LACTULOSE) PO 05/09 1859 1933 Sterile Water See Dose ASDIR PRN 04/09 1230 AC (WATER FOR Insts (1) IRR 05/09 1229 IRRIGATION) Sodium Chloride 1,000 ML .[id number] 04/09 1145 AC 04/12 (SODIUM CHLORIDE IV 05/09 1144 0800 0.9%) Gastrointestinal Drugs Sig/Yas Start time Last Medication Dose Route Stop Time Status Admin Ondansetron HCl 4 MG Q4H PRN PRN 04/08 1800 AC (ZOFRAN) IV 05/08 1759 Hormones And Synthetic Substit Sig/Yas Start time Last Medication Dose Route Stop Time Status Admin Insulin Human Lispro 0 AC HS 04/09 0730 AC 04/12 (HUMALOG) SUBQ 05/09 0729 0800 Other Sig/Yas Start time Last Medication Dose Route Stop Time Status Admin Miscellaneous 1 EACH ASDIR 04/09 1530 CKD Information SUBQ 04/16 1529 (LOV[facility]OX [facility]AC[facility] TO DOSE) Dose Instructions:(1)Sterile Water (WATER FOR IRRIGATION): DRESSING CHANGE Allergies:Coded Allergies:Penicillins (USE COMMENT BUTTON 03/03/23) PT STATES THAT HE WAS JUST TOLD THAT HE'S ALLERGIC TO PENICILLIN AND ITS NOT GONNA WORK FOR HIM Review of Symptoms ROSROS comments:C/o weakness. SOB improving since hospitalization. He is interested in staying for inpatient rehab. Objective Physical ExamVS:Last Documented: Result Date Time Pulse Ox 96 04/12 07 B/P 143/68 04/12 07 B/P Mean 93.1 04/12 07 Temp 97.7 04/12 07 Pulse 70 04/12 07 Resp 16 04/12 07 O2 Delivery Nasal cannula 04/12 0349 O2 Flow Rate 2 04/12 0349 FiO2 28 04/10 0800 PATIENT WEIGHT: Weight (lb): Weight (oz): Weight (kg): 86.200 General appearance: alert, orientedPsych: alert, normal affectNeck: non-tender, suppleCardiovascular: regular rate rhythm, S1/B0Cukwejepxpl: diminished breath sounds, on oxygen, aerating wellAbdomen: bowel sounds present, soft, non-tenderUlcer: Type/cause: scab left foot.Musculoskeletal - general: Musculoskeletal - general: normal muscle massNeuro/SALES ASSISTANT: alert, oriented X 3, CNII-XII intact, normal speech, no sensory deficits ResultsFindings/Data:Recent Impressions:NUCLEAR MEDICINE - NM LUNG PERF PARTICULATE 04/09 1130 Report Impression - Status: SIGNED Entered: 04/09/2023 1257 IMPRESSION:1. Intermediate likelihood ratio for pulmonary embolism. Recommend CTA chest with contrast using PE protocol for further evaluation.Normal: < 5% probability of pulmonary embolism.Low likelihood ratio: < 20 % probability of pulmonary embolism.Intermediate likelihood ratio: 20-80% probability of pulmonary embolism.High likelihood ratio: > 80% probability of pulmonary embolism.Impression By: [email or web address] Og Son M.D.RADIOLOGY - XR FOOT 3 + V LT 04/09 1501 Report Impression - Status: SIGNED Entered: 04/10/2023 1119 IMPRESSION: No acute bony abnormalities or evidence of osteomyelitis.Impression By: [email or web address] - Morales Reyna M.D.ULTRASOUND - DUP VEIN SCOTTY 04/09 1659 Report Impression - Status: SIGNED Entered: 04/09/2023 1756 IMPRESSION: No evidence of deep vein thrombosis. Impression By: [email or web address] - Chilo Cabrera M.D.ULTRASOUND - DUP LE ART SCOTTY 04/09 1659 Report Impression - Status: SIGNED Entered: 04/09/2023 1920 IMPRESSION: Suspicion of stenosis disc proximal to the right popliteal artery with abnormal spectral Doppler waveforms distally. On the left side findings are suspicious for proximal stenosis in the area of the left common femoral artery with decreased amplitude monophasic waveforms in the arterial system throughout. The findings are concerning for stenosis throughout the arterial system of the left lower extremity. Further assessment with a CT angiogram of the lower extremities with peripheral runoffs may be useful, if clinically indicated.Impression By: [email or web address] Og Tran M.D.ULTRASOUND - US RETROPERITONEAL COM 04/10 1127 Report Impression - Status: SIGNED Entered: 04/11/2023 0809 IMPRESSION: Trace left perinephric free fluid. Otherwise, normal renal ultrasound. Impression By: [email or web address] - Ranjit Del Castillo M.D. Laboratory Tests: 04/12 04/12 04/11 04/11 0713 0450 2240 1940 Chemistry Sodium (134 - 147 mEq/L) 143 Potassium (3.4 - 5.0 mEq/L) 4.4 Chloride (100 - 108 mEq/L) 111 H Carbon Dioxide (21 - 33 mEq/l) 25 Anion Gap (0 - 20) 12 BUN (7 - 18 mg/dL) 20 H Creatinine (0.6 - 1.3 mg/dL) 1.3 Glomerular Filtr Rate (70 - 80) 58.4 L Glucose (70 - 110 mg/dL) 171 H POC Glucose (70 - 110 MG/DL) 178 H 255 H Calcium (8.0 - 10.5 mg/dL) 8.3 Total Bilirubin (0.0 - 1.0 mg/dL) 0.20 AST (15 - 37 IUnit/L) 16 ALT (30 - 65 IUnit/L) 17 L Total Alk Phosphatase (20 - 125 IUnit/L) 102 Total Protein (6.4 - 8.2 g/dL) 6.5 Albumin (3.4 - 5.0 g/dL) 2.90 L Coagulation Heparin Anti-Xa, LM Wt (0.60 - 1.00 IU/mL) 0.76 Hematology WBC (4.5 - 11.0 x10 3/uL) 4.2 L RBC (4.00 - 5.60 x10 6/uL) 3.35 L Hgb (12.5 - 16.9 g/dL) 9.7 L Hct (37.5 - 50.7 %) 31.9 L MCV (81.0 - 99.0 fL) 95.2 MCH (27.0 - 33.0 pg) 29.0 MCHC (33.0 - 37.0 g/dL) 30.4 L RDW (11.5 - 14.5 %) 16.3 H Plt Count (150 - 400 x10 3/uL) 220 MPV (7.0 - 9.0 fL) 10.6 H Neut % (Auto) (56.0 - 77.0 %) 80.9 H Lymph % (Auto) (14.0 - 32.0 %) 8.1 L [place] % (Auto) (4.8 - 9.0 %) 6.2 Eos % (Auto) (0.3 - 3.7 %) 2.4 Baso % (Auto) (0.0 - 2.0 %) 1.0 Neut # (Auto) (2.0 - 7.6 x10 3/uL) 3.40 Lymph # (Auto) (1.0 - 3.8 x10 3/uL) 0.34 L [place] # (Auto) (0.1 - 0.8 x10 3/uL) 0.26 Eos # (Auto) (0.0 - 0.2 x10 3/uL) 0.10 Baso # (Auto) (0.0 - 0.2 x10 3/uL) 0.04 Abs Immat Gran (auto) (0.00 - 0.03 x10 3/uL) 0.06 H Add Manual Diff NO Immature Gran % (0.0 - 2.0 %) 1.4 Nucleated RBC % (0 - 0 %) 0.0 Nucleated RBCs # (Man) (0.0 - 0.1 x10 3/uL) 0.00 04/11 04/11 1731 1200 Chemistry POC Glucose (70 - 110 MG/DL) 214 H 230 H Microbiology:04/11 0945 NASAL: MRSA DNA Surveillance Screen - COMP Diagnosis, Assessment PlanFree Text A P:73 year old male with acute on chronic respiratory failure, elevated D-dimer, JERAMY on CKD, recent CABG and weakness. Continue with PT/OT. Recommend IRF placement for his ongoing medical and rehabilitation needs. He is willing to stay here at [facility]. Thank you for this consult, we will follow along and make any further rehab recommendations based on his overall functional status/progress. at 1354 RPT #:[id number] OF REPORTMVVhbifmcmttev0811-29-41Y89:15:00G.PDOC2 [id number] for patient udteDOUZZMEBWJQQFV5068-65-03S62:54:59 [facility] 2023-04-11 23:38:00 [id number] ZpoKTjSiIlF3pM3yKZxtMw+mADON4 7oc7jZwdYfLQveNAC83x93sEoAH8934-21-42Q33:38:00 [facility] ([facility])Hospitalist Progress NoteREPORT#:[id number] REPORT STATUS: SignedDATE:04/11/23 TIME: 2338 PATIENT: TEVIN NYE UNIT #: [id number]#: [id number] ROOM/BED: 5517-1DOB: [birth year] AGE: 73 SEX: M ATTEND: Elvie Gamboa [facility] AUTHOR: Elvie Gamboa MD * ALL edits or amendments must be made on the electronic/computer document * SubjectiveChief complaint: feeling better. back to home oxygenHPI:Patient is a 73-year-old male with past medical history of CAD s/p CABG by Dr. Villeda 03/03/2028, pulmonary embolism in November 2022, prostate cancer s/p radiation 2021, former smoker with COPD on home oxygen. Patient presenting for shortness of breath. no fevers, chills or sweats. no other comPatient is a 73-year-old male with past medical history of CAD s/p CABG by Dr. Villeda 03/03/2028, pulmonary embolism in November 2022, prostate cancer s/p radiation 2021, former smoker with COPD on home oxygen. Patient presenting for shortness of breath. Labs and imaging obtained have been personally reviewed. Objective GeneralVS/I O:Vital Signs: Date Time Temp Pulse Resp B/P B/P Pulse O2 O2 Flow FiO2 Mean Ox Delivery Rate 04/11 2028 98 Nasal 2 cannula 04/11 1947 98.1 84 14 152/68 96.4 98 04/11 1733 97.2 97 14 140/64 89.4 98 Room air 04/11 1202 97.5 78 14 106/48 67.0 97 Room air 04/11 0900 Nasal 2 cannula 04/11 0851 99 Nasal 3 cannula 04/11 0822 97.5 61 14 107/60 76.0 97 Nasal cannula 04/11 0439 98.4 80 14 107/58 74.7 95 04/11 0001 98.1 74 14 110/54 72.6 97 24 hour I O ending at 0700: 04/11 0700 04/10 1900 Intake Total 900.00 Output Total 900 Balance 0 Intake, IV 900.00 Number 1 Bowel Movements Output, Urine 900 PATIENT WEIGHT: Weight (lb): Weight (oz): Weight (kg): 86.200 Medications:Active Meds + DC'd Last 24 HrsMetoprolol Tartrate (LOPRESSOR) 25 MG Q8HR PO Atorvastatin Calcium (LIPITOR) 40 MG 2100 PO Lactulose (LACTULOSE) 20 GM BID PRN PRN PO Enoxaparin Sodium (lovENOX) 86 MG Q24H SUBQ Miscellaneous Information (LOVENOX PHARMACY TO DOSE) 1 EACH ASDIR SUBQ (CKD) Sterile Water (WATER FOR IRRIGATION) DRESSING CHANGE ASDIR PRN IRR Sodium Chloride (SODIUM CHLORIDE 0.9%) 1,000 ML .[id number] IV Aspirin (ASPIRIN) 81 MG DAILY PO Fluoxetine HCl (PROzac) 10 MG QAM PO Insulin Human Lispro (HUMALOG) 0 AC HS SUBQ Albuterol/Ipratropium (DUONEB) 3 ML RTQ4H NEB Tamsulosin HCl (Flomax 0.4 mg) 0.8 MG BEDTIME PO Acetaminophen (TYLENOL) 650 MG Q4H PRN PRN PO Hydrocodone Bitart/Acetaminophen (NORCO 5/325) 1 TAB Q4H PRN PRN PO Morphine Sulfate (morphine SULFATE) 4 MG Q4H PRN PRN IV Ondansetron HCl (ZOFRAN) 4 MG Q4H PRN PRN IV Physical ExamGeneral appearance: no acute distressHead/Eyes: atraumatic, clear cornea, EOMINeck: supple/no meningismusCardiovascular: normal heart sounds, regular rate rhythm, no gallop, no murmur, no rubRespiratory: aerating well, clear to auscultation, symmetric expansionAbdomen: non-tender, normal bowel sounds, soft, no distentionExtremities: no clubbing, no cyanosis, no edemaMusculoskeletal: normal inspection, painless range of motionNeuro/SALES ASSISTANT: alert, oriented X 3, CNII-XII intactSkin: dry, intactUlcer: Type/cause: scab left foot. ResultsFindings/Data:Laboratory Tests 04/11 04/11 04/11 04/11 1731 1200 0821 0559 Chemistry Sodium (134 - 147 mEq/L) 140 Potassium (3.4 - 5.0 mEq/L) 4.3 Chloride (100 - 108 mEq/L) 110 H Carbon Dioxide (21 - 33 mEq/l) 27 Anion Gap (0 - 20) 7 BUN (7 - 18 mg/dL) 30 H Creatinine (0.6 - 1.3 mg/dL) 1.9 H Glomerular Filtr Rate (70 - 80) 37.0 L Glucose (70 - 110 mg/dL) 205 H POC Glucose (70 - 110 MG/DL) 214 H 230 H 199 H Calcium (8.0 - 10.5 mg/dL) 7.9 L Laboratory Tests 04/11 04/11 0559 0443 Hematology WBC (4.5 - 11.0 x10 3/uL) 3.8 L RBC (4.00 - 5.60 x10 6/uL) 2.61 L Hgb (12.5 - 16.9 g/dL) 7.6 L Hct (37.5 - 50.7 %) 24.3 L MCV (81.0 - 99.0 fL) 93.1 MCH (27.0 - 33.0 pg) 29.1 MCHC (33.0 - 37.0 g/dL) 31.3 L RDW (11.5 - 14.5 %) 15.9 H Plt Count (150 - 400 x10 3/uL) 183 MPV (7.0 - 9.0 fL) 10.1 H Neut % (Auto) (56.0 - 77.0 %) 79.8 H Lymph % (Auto) (14.0 - 32.0 %) 9.6 L [place] % (Auto) (4.8 - 9.0 %) 6.6 Eos % (Auto) (0.3 - 3.7 %) 1.9 Baso % (Auto) (0.0 - 2.0 %) 0.5 Neut # (Auto) (2.0 - 7.6 x10 3/uL) 3.00 Lymph # (Auto) (1.0 - 3.8 x10 3/uL) 0.36 L [place] # (Auto) (0.1 - 0.8 x10 3/uL) 0.25 Eos # (Auto) (0.0 - 0.2 x10 3/uL) 0.07 Baso # (Auto) (0.0 - 0.2 x10 3/uL) 0.02 Abs Immat Gran (auto) (0.00 - 0.03 x10 3/uL) 0.06 H Add Manual Diff NO Immature Gran % (0.0 - 2.0 %) 1.6 Nucleated RBC % (0 - 0 %) 0.0 Nucleated RBCs # (Man) (0.0 - 0.1 x10 3/uL) 0.00 Eos Smear Total Cells NONE SEEN Laboratory Tests 04/11 0443 Urines Ur Random Creatinine (mg/dL) 91.5 U Random Total Protein (mg/dL) 40 Protein/Creatinin Ratio 0.44 Microbiology Date/Time Procedure - Status Source Growth 04/11 0945 MRSA DNA Surveillance Screen - COMP NASAL Diagnosis, Assessment Plan Free Text DxA P NotesFree text DxA P notes:SOBcardiology and pulmonary seenon 2 liters of oxygen per n/cecho wnl elevated D-dimerV-Q scan with intermediate probabilityon therapeutic lovenox renally dosed for now JERAMY with CKDrenal seenon IVFcreat improving COPDon home oxygen h/o CADs/p CABG X4 on 3CTS consulted and seen DMaccuchecks and SSI prncheck A1CBG controlled HTNbp controlledresumed home meds HLDon statinstable Prostate cancers/p XRT anemiahgb stable Debilityper PT/OT could be a post acute rehab candidateconsult rehabconsulted CM for possible transfer to IRF follow labs at 1113 RPT #:[id number] OF REPORTPRProgress [id number]:38:00G.[id number] able for patient wvcnMRJTXFFENISSJN7612-69-10V27:14:18 [facility] 2023-04-11 15:27:00 [id number] c6XJrVS2bId5ZFOY9o0MRZDgHKDzU x205y7B3Te3c1qHeUPOGMXqUVM80805-34-66H30:27:00 [facility] ([facility])Podiatry Progress NoteREPORT#:[id number] REPORT STATUS: SignedDATE:04/11/23 TIME: 1527 PATIENT: TEVIN NYE UNIT #: [id number]#: [id number] [address]: [birth year] AGE: 73 SEX: M ATTEND: Elvie Gamboa MDADM AUTHOR: Andres Rachel DPM * ALL edits or amendments must be made on the electronic/computer document * SubjectivePatient reports: no constipation, no diarrhea, no fatigue, no headache, no heartburnComments:dressing had fallen off of the foot. pt has pain. only takes tylenol. events notes. states 1st PT done and wetn well Objective GeneralVS:Last Documented: Result Date Time Pulse Ox 97 04/11 1202 B/P 106/48 04/11 1202 B/P Mean 67.0 04/11 1202 O2 Delivery Room air 04/11 1202 Temp 36.4 / 1202 Pulse 78 04/11 1202 Resp 14 04/11 1202 O2 Flow Rate 2 04/11 0900 FiO2 28 04/10 0800 PATIENT WEIGHT: Weight (lb): Weight (oz): Weight (kg): 86.200 Medications:Active Meds + DC'd Last 24 HrsMetoprolol Tartrate (LOPRESSOR) 25 MG Q8HR PO Atorvastatin Calcium (LIPITOR) 40 MG 2100 PO Lactulose (LACTULOSE) 20 GM BID PRN PRN PO Enoxaparin Sodium (lovENOX) 86 MG Q24H SUBQ Miscellaneous Information (LOVENOX PHARMACY TO DOSE) 1 EACH ASDIR SUBQ (CKD) Sterile Water (WATER FOR IRRIGATION) DRESSING CHANGE ASDIR PRN IRR Sodium Chloride (SODIUM CHLORIDE 0.9%) 1,000 ML .[id number] IV Aspirin (ASPIRIN) 81 MG DAILY PO Fluoxetine HCl (PROzac) 10 MG QAM PO Insulin Human Lispro (HUMALOG) 0 AC HS SUBQ Albuterol/Ipratropium (DUONEB) 3 ML RTQ4H NEB Tamsulosin HCl (Flomax 0.4 mg) 0.8 MG BEDTIME PO Acetaminophen (TYLENOL) 650 MG Q4H PRN PRN PO Hydrocodone Bitart/Acetaminophen (NORCO 5/325) 1 TAB Q4H PRN PRN PO Morphine Sulfate (morphine SULFATE) 4 MG Q4H PRN PRN IV Ondansetron HCl (ZOFRAN) 4 MG Q4H PRN PRN IV I O:24 hour I O ending at 0700: 04/11 0700 04/10 1900 Intake Total 900.00 Output Total 900 Balance 0 Intake, IV 900.00 Number 1 Bowel Movements Output, Urine 900 Dietitian nutrition assessmentThe data set between the solid lines has been imported from the dietitian's assessment. BMI Calculated: 29.8Nutrition related diagnosis: Nutrition diagnosis details: Nutrition problem: Nutrition etiology: Nutrition signs and symptoms: Nutrition prescription: Dietitian name: Assessment completed: Physical ExamGeneral appearance: alert, awake, orientedWound/incision: Location:bilat foot Site condition: small pinpoint ulcer right foot. ulcer left forefoot dorsal. partial and full thickness. no erythema. no depth.LE vascular pulse assess:Nonpalpable R posterior tibialis, Nonpalpable L posterior tibialis, Nonpalpable R dorsalis pedis, Nonpalpable L dorsalis pedis ResultsFindings/Data:Laboratory Tests: 04/11 04/11 04/11 04/11 1200 0821 0559 0443Chemistry Sodium (134 - 147 mEq/L) 140 Potassium (3.4 - 5.0 mEq/L) 4.3 Chloride (100 - 108 mEq/L) 110 H Carbon Dioxide (21 - 33 mEq/l) 27 Anion Gap (0 - 20) 7 BUN (7 - 18 mg/dL) 30 H Creatinine (0.6 - 1.3 mg/dL) 1.9 H Glomerular Filtr Rate (70 - 80) 37.0 L Glucose (70 - 110 mg/dL) 205 H POC Glucose (70 - 110 MG/DL) 230 H 199 H Calcium (8.0 - 10.5 mg/dL) 7.9 LHematology WBC (4.5 - 11.0 x10 3/uL) 3.8 L RBC (4.00 - 5.60 x10 6/uL) 2.61 L Hgb (12.5 - 16.9 g/dL) 7.6 L Hct (37.5 - 50.7 %) 24.3 L MCV (81.0 - 99.0 fL) 93.1 MCH (27.0 - 33.0 pg) 29.1 MCHC (33.0 - 37.0 g/dL) 31.3 L RDW (11.5 - 14.5 %) 15.9 H Plt Count (150 - 400 x10 3/uL) 183 MPV (7.0 - 9.0 fL) 10.1 H Neut % (Auto) (56.0 - 77.0 %) 79.8 H Lymph % (Auto) (14.0 - 32.0 %) 9.6 L [place] % (Auto) (4.8 - 9.0 %) 6.6 Eos % (Auto) (0.3 - 3.7 %) 1.9 Baso % (Auto) (0.0 - 2.0 %) 0.5 Neut # (Auto) (2.0 - 7.6 x10 3/uL) 3.00 Lymph # (Auto) (1.0 - 3.8 x10 3/uL) 0.36 L [place] # (Auto) (0.1 - 0.8 x10 3/uL) 0.25 Eos # (Auto) (0.0 - 0.2 x10 3/uL) 0.07 Baso # (Auto) (0.0 - 0.2 x10 3/uL) 0.02 Abs Immat Gran (auto) (0.00 - 0.03 0.06 Hx10 3/uL) Add Manual Diff NO Immature Gran % (0.0 - 2.0 %) 1.6 Nucleated RBC % (0 - 0 %) 0.0 Nucleated RBCs # (Man) (0.0 - 0.1 0.00x10 3/uL) Eos Smear Total Cells NONE SEENUrines Ur Random Creatinine (mg/dL) 91.5 U Random Total Protein (mg/dL) 40 Protein/Creatinin Ratio 0.44 08/03 08/03 08/03 1955 1620 1613 Chemistry POC Glucose (70 - 110 MG/DL) 198 H 213 H Iron (35 - 150 mcg/dL) 47 TIBC (260 - 445 mcg/dL) 204 L % Saturation (14 - 34 %) 23.0 Unsat Iron Binding (mcg/dL) 157 Ferritin (23.9 - 336.2 ng/mL) 255.2 Diagnosis, Assessment PlanFree Text A P:ulcer left foot.painPVD ulcer is benign...starting to peelcontinue local wound care.no xray found.venous u/s neg NIAS: pvd as expected. covering for Dr. Washington at 1529 RPT #:[id number] OF REPORTPRProgress [id number]:27:00G.[id number] able for patient eyknMDWJGWWESFQVAZ6344-77-16L03:30:04 [facility] 2023-04-11 14:53:00 [id number] e8UcXNmIfSxYKHiSu8nkHEtTj88iJ vtKOW6C6nUXALhZLBP+fp2jyRM92826-49-15I21:53:00 [facility] ([facility])Pulmonology Progress NoteREPORT#:[id number] REPORT STATUS: SignedDATE:04/11/23 TIME: 1452 PATIENT: TEVIN NYE UNIT #: [id number]#: [id number] [address] [birth year] AGE: 73 SEX: M ATTEND: Elvie Gamboa [facility] AUTHOR: Rose Canseco * ALL edits or amendments must be made on the electronic/computer document * Rose Canseco 04/11/23 1453:SubjectiveChief complaint:sobHPI:Coverage for Dr. Alan. Seen and examined, events noted.h/h slowly downtrendingreports small amount of blood in stool on O2 via NCless sobROS neg f/c, n/v, cp Objective GeneralVS/I O:Last Documented: Result Date Time Pulse Ox 97 04/11 1202 B/P 106/48 04/11 1202 B/P Mean 67.0 04/11 1202 O2 Delivery Room air 04/11 1202 Temp 97.5 04/11 1202 Pulse 78 04/11 1202 Resp 14 04/11 1202 O2 Flow Rate 2 04/11 0900 FiO2 28 04/10 0800 24 hour I O ending at 0700: 04/11 0700 04/10 1900 Intake Total 900.00 Output Total 900 Balance 0 Intake, IV 900.00 Number 1 Bowel Movements Output, Urine 900 PATIENT WEIGHT: Weight (lb): Weight (oz): Weight (kg): 86.200 Physical ExamGeneral appearance: alert, awake, oriented, no acute distressHead/eyes: atraumatic, normocephalic, PERRL, EOMINeck: no JVD, no lymphadenopathyCardiovascular: normal heart sounds, normal S1/S2, regular rate rhythmRespiratory/chest: decreased breath sounds, on oxygen, aerating well, symmetric expansionAbdomen: soft, no guardingExtremities: moves all, no clubbing, no cyanosis, no edemaNeuro/SALES ASSISTANT: CNII-XII intactSkin: dry, intactUlcer: Type/cause: scab left foot.Psychiatry: normal affect, normal judgment/insight, normal mood ResultsFindings/Data:Laboratory Tests 04/11/23 0559:[Embedded Image Not Available]Laboratory Tests 04/11 04/11 04/11 04/10 04/10 1200 0821 0559 1955 1620 Chemistry Sodium (134 - 147 mEq/L) 140 Potassium (3.4 - 5.0 mEq/L) 4.3 Chloride (100 - 108 mEq/L) 110 H Carbon Dioxide (21 - 33 mEq/l) 27 Anion Gap (0 - 20) 7 BUN (7 - 18 mg/dL) 30 H Creatinine (0.6 - 1.3 mg/dL) 1.9 H Glomerular Filtr Rate (70 - 80) 37.0 L Glucose (70 - 110 mg/dL) 205 H POC Glucose (70 - 110 MG/DL) 230 H 199 H 198 H Calcium (8.0 - 10.5 mg/dL) 7.9 L Iron (35 - 150 mcg/dL) 47 TIBC (260 - 445 mcg/dL) 204 L % Saturation (14 - 34 %) 23.0 Unsat Iron Binding (mcg/dL) 157 Ferritin (23.9 - 336.2 ng/mL) 255.2 04/10 1613 Chemistry POC Glucose (70 - 110 MG/DL) 213 H Laboratory Tests 04/11 04/11 0559 0443 Hematology WBC (4.5 - 11.0 x10 3/uL) 3.8 L RBC (4.00 - 5.60 x10 6/uL) 2.61 L Hgb (12.5 - 16.9 g/dL) 7.6 L Hct (37.5 - 50.7 %) 24.3 L MCV (81.0 - 99.0 fL) 93.1 MCH (27.0 - 33.0 pg) 29.1 MCHC (33.0 - 37.0 g/dL) 31.3 L RDW (11.5 - 14.5 %) 15.9 H Plt Count (150 - 400 x10 3/uL) 183 MPV (7.0 - 9.0 fL) 10.1 H Neut % (Auto) (56.0 - 77.0 %) 79.8 H Lymph % (Auto) (14.0 - 32.0 %) 9.6 L [place] % (Auto) (4.8 - 9.0 %) 6.6 Eos % (Auto) (0.3 - 3.7 %) 1.9 Baso % (Auto) (0.0 - 2.0 %) 0.5 Neut # (Auto) (2.0 - 7.6 x10 3/uL) 3.00 Lymph # (Auto) (1.0 - 3.8 x10 3/uL) 0.36 L [place] # (Auto) (0.1 - 0.8 x10 3/uL) 0.25 Eos # (Auto) (0.0 - 0.2 x10 3/uL) 0.07 Baso # (Auto) (0.0 - 0.2 x10 3/uL) 0.02 Abs Immat Gran (auto) (0.00 - 0.03 x10 3/uL) 0.06 H Add Manual Diff NO Immature Gran % (0.0 - 2.0 %) 1.6 Nucleated RBC % (0 - 0 %) 0.0 Nucleated RBCs # (Man) (0.0 - 0.1 x10 3/uL) 0.00 Eos Smear Total Cells NONE SEEN Laboratory Tests 04/11 0443 Urines Ur Random Creatinine (mg/dL) 91.5 U Random Total Protein (mg/dL) 40 Protein/Creatinin Ratio 0.44 Diagnosis, Assessment PlanFree Text A P:Acute on chronic hypoxemic respiratory failure supplemental O2 as needed and wean as tolerated Pulmonary embolism Initially diagnosed in November 2022 at outside hospital; was on Eliquis from diagnosis through February. CTA chest 03/03/2023 was negative for pulmonary embolism. Patient was discharged home 03/13/2023 and told to discontinue taking Eliquis.-D-dimer 1496. -VQ scan with intermediate probability. 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 Check bilateral lower extremity Dopplers -> neg-Renally dose lovenox @ 1mg/kg once daily -d/w cardio. will ultimately AC with eliquis asa and DC plavix. Continue lovenox for now. COPD No exacerbation. On Combivent and ipratropium nebs at home.-May need repeat pulmonary function test outpatient. [facility] registration [facility] due to issues with [facility] RLL nodule CT chest 03/03/2023. 1.5 x 0.8 cm nodular opacity in RLL needs follow-up in 3 months CAD / PAD S/p CABG 03/04/2023 Cardiothoracic surgery following Pending echo- will need periph angio when cr improved JERAMY/CKD Nephrology consult Strict I O. Measure UOP.- IVF Follow labs History of prostate cancer S/p radiation in 2021 MattChristiano [place] 04/11/23 1847:Diagnosis, Assessment PlanOrders: Procedure Date/time Status CBC W/AUTO DIFF 04/12 0500 Active EVAL PT HIGH COMPLEX [id number] 04/11 1404 Active PT: POCC - PT STAFF ONLY 04/11 1404 Active ADL 15 MIN 04/11 1113 Active FUNCTIONAL TRAINING 04/11 1108 Active OT: POCC - OT STAFF ONLY 04/11 1103 Active EVAL OT HIGH COMPLEX 05534HZ 04/11 1103 Active Attestations Physician AttestationAgree w/findings plan:Seen and examined. I agree with the findings and plan as documented by Abbie Canseco PA-C. at 1458 at 1380 RPT #:[id number] OF REPORTPRProgress eehy7323-94-85D75:53:00G.QPVM98928610-5703XPNqpda able for patient eokxMIHEWNJAXIXVAF3232-46-86Q12:59:10 [facility] 2023-04-11 12:37:00 [id number] BG2mu2skbOWyFR6S8DkWeuR7b0Hrx adj6pYQOaWdvX/t71TAmLJapWp56646-21-40B25:37:00 [facility] ([facility])Cardiology Progress NoteREPORT#:[id number] REPORT STATUS: SignedDATE:04/11/23 TIME: 1237 PATIENT: TEVIN NYE UNIT #: [id number]#: [id number] [address] [birth year] AGE: 73 SEX: M ATTEND: Elvie Gamboa [facility] AUTHOR: Daniela Mari AGACNRashmi * ALL edits or amendments must be made on the electronic/computer document * Objective GeneralVS/I O:24 hour I O ending at 0700: 04/11 0700 04/10 1900 Intake Total 900.00 Output Total 900 Balance 0 Intake, IV 900.00 Number 1 Bowel Movements Output, Urine 900 Vital Signs: Date Time Temp Pulse Resp B/P B/P Pulse O2 O2 Flow FiO2 Mean Ox Delivery Rate 04/11 1202 36.4 78 14 106/48 67.0 97 Room air 04/11 0900 Nasal 2 cannula 04/11 0851 99 Nasal 3 cannula 04/11 0822 36.4 61 14 107/60 76.0 97 Nasal cannula 04/11 0439 36.9 80 14 107/58 74.7 95 04/11 0001 36.7 74 14 110/54 72.6 97 04/10 2110 Nasal 2 cannula 04/10 2034 98 Nasal 2 cannula 04/10 1956 36.5 80 14 122/53 76.3 96 04/10 1645 98 Nasal 3 cannula 04/10 1614 36.3 42 14 117/51 72.5 94 Nasal cannula PATIENT WEIGHT: Weight (lb): Weight (oz): Weight (kg): 86.200 Medications:Active Meds + DC'd Last 24 HrsMetoprolol Tartrate (LOPRESSOR) 25 MG Q8HR PO Atorvastatin Calcium (LIPITOR) 40 MG 2100 PO Lactulose (LACTULOSE) 20 GM BID PRN PRN PO Enoxaparin Sodium (lovENOX) 86 MG Q24H SUBQ Miscellaneous Information (LOVENOX PHARMACY TO DOSE) 1 EACH ASDIR SUBQ (CKD) Sterile Water (WATER FOR IRRIGATION) DRESSING CHANGE ASDIR PRN IRR Sodium Chloride (SODIUM CHLORIDE 0.9%) 1,000 ML .[id number] IV Aspirin (ASPIRIN) 81 MG DAILY PO Fluoxetine HCl (PROzac) 10 MG QAM PO Insulin Human Lispro (HUMALOG) 0 AC HS SUBQ Albuterol/Ipratropium (DUONEB) 3 ML RTQ4H NEB Tamsulosin HCl (Flomax 0.4 mg) 0.8 MG BEDTIME PO Acetaminophen (TYLENOL) 650 MG Q4H PRN PRN PO Hydrocodone Bitart/Acetaminophen (NORCO 5/325) 1 TAB Q4H PRN PRN PO Morphine Sulfate (morphine SULFATE) 4 MG Q4H PRN PRN IV Ondansetron HCl (ZOFRAN) 4 MG Q4H PRN PRN IV Physical ExamGeneral appearance: alert, awake, orientedNeck: non-tender, no JVDCardiovascular: CV assessment: ectopy, irregular rhythmRespiratory: decreased breath sounds, no distressAbdomen: soft, non-tender, normal bowel sounds, no distentionGenitourinary: no flank pain, no urinary catheterLower extremity: LE assessment: abnormal pedal pulseMusculoskeletal: normal inspectionNeuro/SALES ASSISTANT: alert, oriented X 3, normal speechSkin: dry, intactUlcer: Type/cause: scab left foot.Psychiatry: normal affect, normal judgment/insight, normal mood ResultsFindings/Data:Laboratory Tests 04/11 04/11 04/11 04/10 04/10 1200 0821 0559 1955 1620 Chemistry Sodium (134 - 147 mEq/L) 140 Potassium (3.4 - 5.0 mEq/L) 4.3 Chloride (100 - 108 mEq/L) 110 H Carbon Dioxide (21 - 33 mEq/l) 27 Anion Gap (0 - 20) 7 BUN (7 - 18 mg/dL) 30 H Creatinine (0.6 - 1.3 mg/dL) 1.9 H Glomerular Filtr Rate (70 - 80) 37.0 L Glucose (70 - 110 mg/dL) 205 H POC Glucose (70 - 110 MG/DL) 230 H 199 H 198 H Calcium (8.0 - 10.5 mg/dL) 7.9 L Iron (35 - 150 mcg/dL) 47 TIBC (260 - 445 mcg/dL) 204 L % Saturation (14 - 34 %) 23.0 Unsat Iron Binding (mcg/dL) 157 Ferritin (23.9 - 336.2 ng/mL) 255.2 04/10 1613 Chemistry POC Glucose (70 - 110 MG/DL) 213 H Laboratory Tests 04/11 04/11 0559 0443 Hematology WBC (4.5 - 11.0 x10 3/uL) 3.8 L RBC (4.00 - 5.60 x10 6/uL) 2.61 L Hgb (12.5 - 16.9 g/dL) 7.6 L Hct (37.5 - 50.7 %) 24.3 L MCV (81.0 - 99.0 fL) 93.1 MCH (27.0 - 33.0 pg) 29.1 MCHC (33.0 - 37.0 g/dL) 31.3 L RDW (11.5 - 14.5 %) 15.9 H Plt Count (150 - 400 x10 3/uL) 183 MPV (7.0 - 9.0 fL) 10.1 H Neut % (Auto) (56.0 - 77.0 %) 79.8 H Lymph % (Auto) (14.0 - 32.0 %) 9.6 L [place] % (Auto) (4.8 - 9.0 %) 6.6 Eos % (Auto) (0.3 - 3.7 %) 1.9 Baso % (Auto) (0.0 - 2.0 %) 0.5 Neut # (Auto) (2.0 - 7.6 x10 3/uL) 3.00 Lymph # (Auto) (1.0 - 3.8 x10 3/uL) 0.36 L [place] # (Auto) (0.1 - 0.8 x10 3/uL) 0.25 Eos # (Auto) (0.0 - 0.2 x10 3/uL) 0.07 Baso # (Auto) (0.0 - 0.2 x10 3/uL) 0.02 Abs Immat Gran (auto) (0.00 - 0.03 x10 3/uL) 0.06 H Add Manual Diff NO Immature Gran % (0.0 - 2.0 %) 1.6 Nucleated RBC % (0 - 0 %) 0.0 Nucleated RBCs # (Man) (0.0 - 0.1 x10 3/uL) 0.00 Eos Smear Total Cells NONE SEEN Laboratory Tests 04/11 0443 Urines Ur Random Creatinine (mg/dL) 91.5 U Random Total Protein (mg/dL) 40 Protein/Creatinin Ratio 0.44 Results: labs reviewed, vital signs reviewed, rhythm personally rev'dTelemetry Interpretation:sinus with PVC Diagnosis, Assessment PlanPlan discussed with: patient, son, collaborating MD Free Text DxA P NotesFree Text DxA P Notes:73 YO male with MHx of CAD s/p CABG less than 1 month ago, COPD, PE. He presentswith generalized weakness and near syncope. Per family the patient was progressively getting weak since being discharged from the hospital post CABG. Yesterday he was noticed to be really weak. The patient remarked he felt he was going to pass out. Other symptoms reported includes SOB, anorexia, LE edema, wound on the dorsum of the right foot. Creatinine elevated at 3, it was 1.6 when he was discharged few weeks ago. D-dimer elevated 1496. He has abnormal pedal pulses. 1. Dyspnea and presyncope likely d/t PE * Hx of PE, elevated D-dimer* Unable to CTA due to elevated creatinine* pulmonary is also consulted* echocardiogram preserved LVEF* VQ suggestive of pulmonary embolism 2. CAD s/p CABG* stop Plavix, continue baby ASA plus AC of choice by pulmonology* continue BB and statin 3. JERAMY on CKD 2/2 volume depletion* creatinine trending down 3->2.9->2.4->1.9 (creat 1.6 when he was discharge 2 weeks ago)* hold lisinopril* nephrology following* continue IVF 4. Left foot ulcer/abnormal arterial doppler* possible peripheral angiogram when kidney function stabilize* podiatry following 5. Hx of COPD* pulmonary following 6. Acute Pulmonary embolism - recurrent* AC per pulmonology* LE venous doppler no DVT 7. PVCs* Stop amlodipine as BP is soft* continue metoprolol for PVC and CAD Overall doing well. Stable CV status.mobilize OOB.PT/OT. MDM by Dr. Haynes. at 1240 at 1653 RPT #:[id number] OF REPORTPRProgress [id number]:37:00G.[id number] able for patient qoavASVRXMUMLKUKBG1887-94-33J03:41:34 [facility] 2023-04-11 10:54:00 [id number] 0BD440pXFIyezduQyMePf6tmRJb3344-50-42K06:54:00 [facility] ProgREPORT#:[id number] REPORT STATUS: SignedDATE:04/11/23 TIME: 1054 PATIENT: TEVIN NYE UNIT #: [id number]#: [id number] [address] [birth year] AGE: 73 SEX: M ATTEND: Elvie Gamboa [facility] AUTHOR: Evon Andrew Physic * ALL edits or amendments must be made on the electronic/computer document * GeneralStatus post:03/04/2023 CABG x 4 (MCCORMICK-LAD,SVG-Renea, SVG-OM, SVG-PDA SubjectiveChief complaint:Resting comfortable. Review of SystemsConstitutional:Denies: fever, generalized weakness. Respiratory:Reports: SOB. Cardiovascular:Reports: [place] (dyspnea on exertion). Denies: chest pain, edema. GI:Denies: constipation, diarrhea. Musculoskeletal:Denies: joint pain, joint swelling. Heme:Denies: bleeding, bruising. Endocrine:Denies: polydipsia, polyuria. Neuro:Denies: dizziness. Psych:Denies: agitation, anxiety. All systems rev neg: except as marked Objective GeneralVS/I OLast Documented: Result Date Time Pulse Ox 99 04/11 851 O2 Delivery Nasal cannula 04/11 851 O2 Flow Rate 3 04/11 851 B/P 107/60 04/11 822 B/P Mean 76.0 04/11 822 Temp 97.5 04/11 822 Pulse 61 04/11 822 Resp 14 04/11 822 FiO2 28 04/10 08 24 hour I O ending at 0700: 04/11 0700 04/10 1900 Intake Total 900.00 Output Total 900 Balance 0 Intake, IV 900.00 Number 1 Bowel Movements Output, Urine 900 PATIENT WEIGHT: Weight (lb): Weight (oz): Weight (kg): 86.200 Physical ExamGeneral appearance: alert, awake, orientedHEENT: mucosal membranes moistCardiovascular: regular rate rhythmRespiratory: aerating well, clear to auscultationAbdomen: soft, non-tenderExtremities: dry, moves allMusculoskeletal: full range of motionNeuro/SALES ASSISTANT: alert, oriented X 3Skin: dry, intactUlcer: Type/cause: scab left foot. Diagnosis, Assessment PlanHospital course to date:This is a 73-year-old gentleman with past medical history of coronary artery disease status post coronary artery bypass graft surgery on 3CABG x 4 (MCCORMICK-LAD,SVG-Renea, SVG-OM, SVG-PDA) Patient was DC'd home on 03/13/2023. He was DC'd home on home oxygen for findingsconsistent with COPD. The patient reports over the past few weeks he has experienced increased shortness of breath with exertion.The patient denies any lower extremity edema and in fact reports his lower extremity edema has slightly improved since his hospital stay. The patient presented to hospital on [facility] for evaluation of shortness ofbreath. During his hospitalization for coronary bypass graft surgery the patient's creatinine wero to 3 and came down to baseline of 1.6.His admission creatinine today 2.9 The patient denies any chest pains, denies any palpitations. Assessment/plan1. Coronary artery disease Status post coronary bypass graft surgery . CKD Consult renal3. COPD4. Shortness of breath Sternal wound is clean and dry. There is no signs of infection. Sternum is stable.Left leg wound graft site also clean and dry no signs of infection We will obtain echocardiogram, cardiac consultation and renal consultation.Continue daily labsDaily chest x-rayWe will continue to follow 04/09/23Patient resting comfortableON 2 L NCLabs reviewedElevated Creatine. Nephrology consulted.Awaiting echo-Cardiology consulted. COPD, will consult pulmonaryPatient was seen and examined by Dr. Villeda. Continue supportive care 04/10/23Patient resting comfortableDenies complaints, feeling betterCreatinine improving, renal following. Given IV fluidsRestart back on Eliquis as per pulmonary recommendation due to history of PE, DC PlavixEchocardiogram completed showing EF 55-59%, Trivial pericardial effusionCOPD, pulmonary followingContinue supportive care. 04/11/23Patient resting comfortable, denies chest pains, denies shortness of breathCreatinine improving, renal followingShortness of breath improvedRestarted on patient's Eliquis. History of PEs followed by pulmonaryPatient doing well.Discharge planning in progress as per multidisciplinary teams.No CV surgical indicationPatient was seen and examined by Dr. Villeda at 1056 at 0731 RPT #:[id number] OF REPORTPRProgress [id number]:54:00G.[id number] able for patient ydjmTPUTYSCPRTSIDU0790-52-87U49:56:31 [facility] 2023-04-11 09:10:00 [id number] WFCEeTsjGtnRk7d0qcJIPW57uKJ5943-38-43O66:10:00 [facility] ([facility])Nephrology Progress NoteREPORT#:[id number] REPORT STATUS: SignedDATE:04/11/23 TIME: 09 PATIENT: TEVIN NYE UNIT #: [id number]#: [id number] [address] [birth year] AGE: 73 SEX: M ATTEND: Elvie Gamboa MDADM AUTHOR: Monserrat Bobo MD * ALL edits or amendments must be made on the electronic/computer document * SubjectiveChief complaint:Follow-up of acute renal failure, ATN/AIN Review of SystemsConstitutional:Reports: generalized weakness. All systems rev neg: except as marked Objective GeneralVS/I O:Vital Signs: Date Time Temp Pulse Resp B/P B/P Pulse O2 O2 Flow FiO2 Mean Ox Delivery Rate 04/11 1202 97.5 78 14 106/48 67.0 97 Room air 04/11 0900 Nasal 2 cannula 04/11 0851 99 Nasal 3 cannula 04/11 0822 97.5 61 14 107/60 76.0 97 Nasal cannula 04/11 0439 98.4 80 14 107/58 74.7 95 04/11 0001 98.1 74 14 110/54 72.6 97 04/10 2110 Nasal 2 cannula 04/10 2034 98 Nasal 2 cannula 04/10 1956 97.7 80 14 122/53 76.3 96 24 hour I O ending at 0700: 04/11 0700 04/10 1900 Intake Total 900.00 Output Total 900 Balance 0 Intake, IV 900.00 Number 1 Bowel Movements Output, Urine 900 PATIENT WEIGHT: Weight (lb): Weight (oz): Weight (kg): 86.200 MedicationsActive Meds + DC'd Last 24 HrsMetoprolol Tartrate (LOPRESSOR) 25 MG Q8HR PO Atorvastatin Calcium (LIPITOR) 40 MG 2100 PO Lactulose (LACTULOSE) 20 GM BID PRN PRN PO Enoxaparin Sodium (lovENOX) 86 MG Q24H SUBQ Miscellaneous Information (LOVENOX PHARMACY TO DOSE) 1 EACH ASDIR SUBQ (CKD) Sterile Water (WATER FOR IRRIGATION) DRESSING CHANGE ASDIR PRN IRR Sodium Chloride (SODIUM CHLORIDE 0.9%) 1,000 ML .[id number] IV Aspirin (ASPIRIN) 81 MG DAILY PO Fluoxetine HCl (PROzac) 10 MG QAM PO Insulin Human Lispro (HUMALOG) 0 AC HS SUBQ Albuterol/Ipratropium (DUONEB) 3 ML RTQ4H NEB Tamsulosin HCl (Flomax 0.4 mg) 0.8 MG BEDTIME PO Acetaminophen (TYLENOL) 650 MG Q4H PRN PRN PO Hydrocodone Bitart/Acetaminophen (NORCO 5/325) 1 TAB Q4H PRN PRN PO Morphine Sulfate (morphine SULFATE) 4 MG Q4H PRN PRN IV Ondansetron HCl (ZOFRAN) 4 MG Q4H PRN PRN IV Physical ExamGeneral appearance: alert, awake, orientedHead/eyes: atraumatic, normocephalicENT: moist mucous membranesNeck: supple/no meningismus, no JVDCardiovascular: normal heart sounds, no rubRespiratory: aerating well, clear to auscultationGenitourinary: no bladder distentionExtremities: no edemaNeuro/SALES ASSISTANT: alert, oriented X 3Ulcer: Type/cause: scab left foot. ResultsFindings/Data:Laboratory Tests 04/11 04/11 04/11 04/10 1200 0821 0559 1955 Chemistry Sodium (134 - 147 mEq/L) 140 Potassium (3.4 - 5.0 mEq/L) 4.3 Chloride (100 - 108 mEq/L) 110 H Carbon Dioxide (21 - 33 mEq/l) 27 Anion Gap (0 - 20) 7 BUN (7 - 18 mg/dL) 30 H Creatinine (0.6 - 1.3 mg/dL) 1.9 H Glomerular Filtr Rate (70 - 80) 37.0 L Glucose (70 - 110 mg/dL) 205 H POC Glucose (70 - 110 MG/DL) 230 H 199 H 198 H Calcium (8.0 - 10.5 mg/dL) 7.9 L Laboratory Tests 04/11 04/11 0559 0443 Hematology WBC (4.5 - 11.0 x10 3/uL) 3.8 L RBC (4.00 - 5.60 x10 6/uL) 2.61 L Hgb (12.5 - 16.9 g/dL) 7.6 L Hct (37.5 - 50.7 %) 24.3 L MCV (81.0 - 99.0 fL) 93.1 MCH (27.0 - 33.0 pg) 29.1 MCHC (33.0 - 37.0 g/dL) 31.3 L RDW (11.5 - 14.5 %) 15.9 H Plt Count (150 - 400 x10 3/uL) 183 MPV (7.0 - 9.0 fL) 10.1 H Neut % (Auto) (56.0 - 77.0 %) 79.8 H Lymph % (Auto) (14.0 - 32.0 %) 9.6 L [place] % (Auto) (4.8 - 9.0 %) 6.6 Eos % (Auto) (0.3 - 3.7 %) 1.9 Baso % (Auto) (0.0 - 2.0 %) 0.5 Neut # (Auto) (2.0 - 7.6 x10 3/uL) 3.00 Lymph # (Auto) (1.0 - 3.8 x10 3/uL) 0.36 L [place] # (Auto) (0.1 - 0.8 x10 3/uL) 0.25 Eos # (Auto) (0.0 - 0.2 x10 3/uL) 0.07 Baso # (Auto) (0.0 - 0.2 x10 3/uL) 0.02 Abs Immat Gran (auto) (0.00 - 0.03 x10 3/uL) 0.06 H Add Manual Diff NO Immature Gran % (0.0 - 2.0 %) 1.6 Nucleated RBC % (0 - 0 %) 0.0 Nucleated RBCs # (Man) (0.0 - 0.1 x10 3/uL) 0.00 Eos Smear Total Cells NONE SEEN Laboratory Tests 04/11 0443 Urines Ur Random Creatinine (mg/dL) 91.5 U Random Total Protein (mg/dL) 40 Protein/Creatinin Ratio 0.44 Diagnosis, Assessment PlanFree Text A P:Assessment/plan:1. Acute renal failure most likely secondary to volume depletion, overdiuresis and ATN/AIN with Bactrim and lisinopril on board, continue normal saline hydration, Cr further better 2.9-2.4-1.9 today, renal sono reviewed, urine eosinophils pending, urine proten/cr ratio 0.4CKD baseline creatinine 1.6 back in March 2023 2. Coronary artery disease: Status post CABG, continue home medications 3. COPD: Symptomatic treatment 4. History of prostate cancer, s/p radiation 2021 5. Anemia: Requested stool occult blood-not sent yet, and iron studies reviewed-ok, transfuse as needed for hemoglobin less than 7. at 1652 RPT #:[id number] OF REPORTPRProgress [id number]:10:00G.[id number] able for patient xwuhKNBSWRMTGZVQFU2179-36-16K99:52:30 [facility] 2023-04-11 01:48:00 [id number] kfg/BccpFkzBRNp13eSy8L1EuRQA6 nVkOQoTrxxsizzpjRLydRmM1GX/7580-02-86Y15:48:00 [facility] CenterHospital[facility] Progress NoteREPORT#:[id number] REPORT STATUS: SignedDATE:04/11/23 TIME: 0148 PATIENT: TEVIN NYE UNIT #: [id number]#: [id number] [address] [birth year] AGE: 73 SEX: M ATTEND: Elvie Gamboa AUTHOR: Elvie Gamboa MD * ALL edits or amendments must be made on the electronic/computer document * SubjectiveChief complaint:late entry note for april 10feeling better. back to home oxygenHPI:Patient is a 73-year-old male with past medical history of CAD s/p CABG by Dr. Villeda 03/03/2028, pulmonary embolism in November 2022, prostate cancer s/p radiation 2021, former smoker with COPD on home oxygen. Patient presenting for shortness of breath. no fevers, chills or sweats. no other comPatient is a 73-year-old male with past medical history of CAD s/p CABG by Dr. Villeda 03/03/2028, pulmonary embolism in November 2022, prostate cancer s/p radiation 2021, former smoker with COPD on home oxygen. Patient presenting for shortness of breath. Labs and imaging obtained have been personally reviewed. Objective GeneralVS/I O:Vital Signs: Date Time Temp Pulse Resp B/P B/P Pulse O2 O2 Flow FiO2 Mean Ox Delivery Rate 04/11 0001 98.1 74 14 110/54 72.6 97 / 2110 Nasal 2 cannula 04/10 2034 98 Nasal 2 cannula / 1956 97.7 80 14 122/53 76.3 96 / 1645 98 Nasal 3 cannula 04/10 1614 97.3 42 14 117/51 72.5 94 Nasal cannula / 1143 97.7 38 14 113/57 75.9 91 Room air 04/10 1032 Nasal 3 cannula 04/10 0800 98 Nasal 2 28 cannula 04/10 0729 97.9 68 16 103/51 68.2 99 Room air / 0316 97.7 49 14 110/71 84.2 97 24 hour I O ending at 0700: 04 0700 04/10 1900 Intake Total Output Total Balance Number 1 Bowel Movements PATIENT WEIGHT: Weight (lb): Weight (oz): Weight (kg): 86.200 Medications:Active Meds + DC'd Last 24 HrsMetoprolol Tartrate (LOPRESSOR) 25 MG Q8HR PO Atorvastatin Calcium (LIPITOR) 40 MG 2100 PO Lactulose (LACTULOSE) 20 GM BID PRN PRN PO Enoxaparin Sodium (lovENOX) 86 MG Q24H SUBQ Miscellaneous Information (LOVENOX PHARMACY TO DOSE) 1 EACH ASDIR SUBQ (CKD) Sterile Water (WATER FOR IRRIGATION) DRESSING CHANGE ASDIR PRN IRR Sodium Chloride (SODIUM CHLORIDE 0.9%) 1,000 ML .[id number] IV Aspirin (ASPIRIN) 81 MG DAILY PO Clopidogrel Bisulfate (Plavix) 75 MG DAILY PO (DC) Amlodipine Besylate (NORVASC) 10 MG DAILY PO (DC) Fluoxetine HCl (PROzac) 10 MG QAM PO Insulin Human Lispro (HUMALOG) 0 AC HS SUBQ Albuterol/Ipratropium (DUONEB) 3 ML RTQ4H NEB Metoprolol Tartrate (LOPRESSOR) 25 MG Q12HR PO (DC) Tamsulosin HCl (Flomax 0.4 mg) 0.8 MG BEDTIME PO Acetaminophen (TYLENOL) 650 MG Q4H PRN PRN PO Hydrocodone Bitart/Acetaminophen (NORCO 5/325) 1 TAB Q4H PRN PRN PO Morphine Sulfate (morphine SULFATE) 4 MG Q4H PRN PRN IV Ondansetron HCl (ZOFRAN) 4 MG Q4H PRN PRN IV Physical ExamGeneral appearance: no acute distressHead/Eyes: atraumatic, clear cornea, EOMINeck: supple/no meningismusCardiovascular: normal heart sounds, regular rate rhythm, no gallop, no murmur, no rubRespiratory: aerating well, clear to auscultation, symmetric expansionAbdomen: non-tender, normal bowel sounds, soft, no distentionExtremities: no clubbing, no cyanosis, no edemaMusculoskeletal: normal inspection, painless range of motionNeuro/SALES ASSISTANT: alert, oriented X 3, CNII-XII intactSkin: dry, intactUlcer: Type/cause: scab left foot. ResultsFindings/Data:Laboratory Tests 04/10 1620 1613 1142 0722 Chemistry POC Glucose (70 - 110 MG/DL) 198 H 213 H 283 H 180 H Iron (35 - 150 mcg/dL) 47 TIBC (260 - 445 mcg/dL) 204 L % Saturation (14 - 34 %) 23.0 Unsat Iron Binding (mcg/dL) 157 Ferritin (23.9 - 336.2 ng/mL) 255.2 04/10 0614 Chemistry Sodium (134 - 147 mEq/L) 142 Potassium (3.4 - 5.0 mEq/L) 4.3 Chloride (100 - 108 mEq/L) 108 Carbon Dioxide (21 - 33 mEq/l) 28 Anion Gap (0 - 20) 10 BUN (7 - 18 mg/dL) 42 H Creatinine (0.6 - 1.3 mg/dL) 2.4 H Glomerular Filtr Rate (70 - 80) 28.0 L Glucose (70 - 110 mg/dL) 178 H Calcium (8.0 - 10.5 mg/dL) 8.6 Laboratory Tests 04/10 0615 Hematology WBC (4.5 - 11.0 x10 3/uL) 4.4 L RBC (4.00 - 5.60 x10 6/uL) 2.81 L Hgb (12.5 - 16.9 g/dL) 8.1 L Hct (37.5 - 50.7 %) 26.7 L MCV (81.0 - 99.0 fL) 95.0 MCH (27.0 - 33.0 pg) 28.8 MCHC (33.0 - 37.0 g/dL) 30.3 L RDW (11.5 - 14.5 %) 15.8 H Plt Count (150 - 400 x10 3/uL) 212 MPV (7.0 - 9.0 fL) 10.5 H Neut % (Auto) (56.0 - 77.0 %) 81.0 H Lymph % (Auto) (14.0 - 32.0 %) 8.6 L [place] % (Auto) (4.8 - 9.0 %) 7.7 Eos % (Auto) (0.3 - 3.7 %) 0.7 Baso % (Auto) (0.0 - 2.0 %) 0.9 Neut # (Auto) (2.0 - 7.6 x10 3/uL) 3.58 Lymph # (Auto) (1.0 - 3.8 x10 3/uL) 0.38 L [place] # (Auto) (0.1 - 0.8 x10 3/uL) 0.34 Eos # (Auto) (0.0 - 0.2 x10 3/uL) 0.03 Baso # (Auto) (0.0 - 0.2 x10 3/uL) 0.04 Abs Immat Gran (auto) (0.00 - 0.03 x10 3/uL) 0.05 H Add Manual Diff NO Immature Gran % (0.0 - 2.0 %) 1.1 Nucleated RBC % (0 - 0 %) 0.0 Nucleated RBCs # (Man) (0.0 - 0.1 x10 3/uL) 0.00 Diagnosis, Assessment Plan Free Text DxA P NotesFree text DxA P notes:SOBcardiology and pulmonary seenon 2 liters of oxygen per n/cecho wnl elevated D-dimerV-Q scan with intermediate probabilityon therapeutic lovenox renally dosed for now JERAMY with CKDrenal seenon IVFcreat improving COPDon home oxygen h/o CADs/p CABG X4 on 3CTS consulted and seen DMaccuchecks and SSI prncheck A1CBG controlled HTNbp controlledresumed home meds HLDon statinstable Prostate cancers/p XRT anemiahgb dropping could be dilutationno signs of active bleedingcontinue to monitor follow labs at 1112 RPT #:[id number] OF REPORTPRProgress [id number]:48:00G.[id number] able for patient fetpUWFDOESKMQLZNH5354-85-40B42:12:58 [facility] 2023-04-10 14:17:00 [id number] MPdyjxhJ75O+lL4OB6CEEvLHxQBbH gNc1Yyp+FXeXuUY4tJ7jpFW7OXg5231-09-38B44:17:00 [facility] CenterNephrology Progress NoteREPORT#:[id number] REPORT STATUS: SignedDATE:04/10/23 TIME: 1417 PATIENT: TEVIN NYE UNIT #: [id number]#: [id number] [address] [birth year] AGE: 73 SEX: M ATTEND: Elvie Gamboa MDADM AUTHOR: Monserrat Bobo MD * ALL edits or amendments must be made on the electronic/computer document * SubjectiveChief complaint:Follow-up of acute renal failure, ATN/AIN Review of SystemsConstitutional:Reports: generalized weakness. All systems rev neg: except as marked Objective GeneralVS/I O:Vital Signs: Date Time Temp Pulse Resp B/P B/P Pulse O2 O2 Flow FiO2 Mean Ox Delivery Rate 04/10 1143 97.7 38 14 113/57 75.9 91 Room air 08/03 1032 Nasal 3 cannula 04/10 0800 98 Nasal 2 28 cannula 04/10 0729 97.9 68 16 103/51 68.2 99 Room air 04/10 0316 97.7 49 14 110/71 84.2 97 04/09 2315 98.1 79 14 107/65 78.8 97 04/09 2230 Nasal 3 cannula 04/09 2013 Nasal 3 cannula 04/09 1947 97 Nasal 2 cannula 04/09 1902 97.7 73 14 121/64 83.3 100 PATIENT WEIGHT: Weight (lb): Weight (oz): Weight (kg): 86.200 MedicationsActive Meds + DC'd Last 24 HrsMetoprolol Tartrate (LOPRESSOR) 25 MG Q8HR PO Atorvastatin Calcium (LIPITOR) 40 MG 2100 PO Lactulose (LACTULOSE) 20 GM BID PRN PRN PO Enoxaparin Sodium (lovENOX) 86 MG Q24H SUBQ Miscellaneous Information (LOVENOX PHARMACY TO DOSE) 1 EACH ASDIR SUBQ (CKD) Sterile Water (WATER FOR IRRIGATION) DRESSING CHANGE ASDIR PRN IRR Sodium Chloride (SODIUM CHLORIDE 0.9%) 1,000 ML .[id number] IV Aspirin (ASPIRIN) 81 MG DAILY PO Clopidogrel Bisulfate (Plavix) 75 MG DAILY PO (DC) Amlodipine Besylate (NORVASC) 10 MG DAILY PO (DC) Fluoxetine HCl (PROzac) 10 MG QAM PO Insulin Human Lispro (HUMALOG) 0 AC HS SUBQ Albuterol/Ipratropium (DUONEB) 3 ML RTQ4H NEB Metoprolol Tartrate (LOPRESSOR) 25 MG Q12HR PO (DC) Tamsulosin HCl (Flomax 0.4 mg) 0.8 MG BEDTIME PO Acetaminophen (TYLENOL) 650 MG Q4H PRN PRN PO Hydrocodone Bitart/Acetaminophen (NORCO 5/325) 1 TAB Q4H PRN PRN PO Morphine Sulfate (morphine SULFATE) 4 MG Q4H PRN PRN IV Ondansetron HCl (ZOFRAN) 4 MG Q4H PRN PRN IV Physical ExamGeneral appearance: alert, awake, orientedHead/eyes: atraumatic, normocephalicENT: moist mucous membranesNeck: supple/no meningismus, no JVDCardiovascular: normal heart sounds, no rubRespiratory: aerating well, clear to auscultationGenitourinary: no bladder distentionExtremities: no edemaNeuro/SALES ASSISTANT: alert, oriented X 3Ulcer: Type/cause: scab left foot. ResultsFindings/Data:Laboratory Tests 04/10 04/10 04/10 04/09 1142 0722 0614 1903 Chemistry Sodium (134 - 147 mEq/L) 142 Potassium (3.4 - 5.0 mEq/L) 4.3 Chloride (100 - 108 mEq/L) 108 Carbon Dioxide (21 - 33 mEq/l) 28 Anion Gap (0 - 20) 10 BUN (7 - 18 mg/dL) 42 H Creatinine (0.6 - 1.3 mg/dL) 2.4 H Glomerular Filtr Rate (70 - 80) 28.0 L Glucose (70 - 110 mg/dL) 178 H POC Glucose (70 - 110 MG/DL) 283 H 180 H 281 H Calcium (8.0 - 10.5 mg/dL) 8.6 Laboratory Tests 04/10 0615 Hematology WBC (4.5 - 11.0 x10 3/uL) 4.4 L RBC (4.00 - 5.60 x10 6/uL) 2.81 L Hgb (12.5 - 16.9 g/dL) 8.1 L Hct (37.5 - 50.7 %) 26.7 L MCV (81.0 - 99.0 fL) 95.0 MCH (27.0 - 33.0 pg) 28.8 MCHC (33.0 - 37.0 g/dL) 30.3 L RDW (11.5 - 14.5 %) 15.8 H Plt Count (150 - 400 x10 3/uL) 212 MPV (7.0 - 9.0 fL) 10.5 H Neut % (Auto) (56.0 - 77.0 %) 81.0 H Lymph % (Auto) (14.0 - 32.0 %) 8.6 L [place] % (Auto) (4.8 - 9.0 %) 7.7 Eos % (Auto) (0.3 - 3.7 %) 0.7 Baso % (Auto) (0.0 - 2.0 %) 0.9 Neut # (Auto) (2.0 - 7.6 x10 3/uL) 3.58 Lymph # (Auto) (1.0 - 3.8 x10 3/uL) 0.38 L [place] # (Auto) (0.1 - 0.8 x10 3/uL) 0.34 Eos # (Auto) (0.0 - 0.2 x10 3/uL) 0.03 Baso # (Auto) (0.0 - 0.2 x10 3/uL) 0.04 Abs Immat Gran (auto) (0.00 - 0.03 x10 3/uL) 0.05 H Add Manual Diff NO Immature Gran % (0.0 - 2.0 %) 1.1 Nucleated RBC % (0 - 0 %) 0.0 Nucleated RBCs # (Man) (0.0 - 0.1 x10 3/uL) 0.00 Radiology data:Recent Impressions:RADIOLOGY - XR FOOT 3 + V LT 04/09 1501 Report Impression - Status: SIGNED Entered: 04/10/2023 1119 IMPRESSION: No acute bony abnormalities or evidence of osteomyelitis.Impression By: BuckBC0 - Morales Reyna M.D.ULTRASOUND - DUP VEIN SCOTTY 04/09 1659 Report Impression - Status: SIGNED Entered: 04/09/2023 1756 IMPRESSION: No evidence of deep vein thrombosis. Impression By: BuckWH3 - Chilo Cabrera M.D.ULTRASOUND - DUP LE ART SCOTTY 04/09 1659 Report Impression - Status: SIGNED Entered: 04/09/2023 1920 IMPRESSION: Suspicion of stenosis disc proximal to the right popliteal artery with abnormal spectral Doppler waveforms distally. On the left side findings are suspicious for proximal stenosis in the area of the left common femoral artery with decreased amplitude monophasic waveforms in the arterial system throughout. The findings are concerning for stenosis throughout the arterial system of the left lower extremity. Further assessment with a CT angiogram of the lower extremities with peripheral runoffs may be useful, if clinically indicated.Impression By: [email or web address] - Slava Tran M.D. Diagnosis, Assessment PlanFree Text A P:Assessment/plan:1. Acute renal failure most likely secondary to volume depletion, overdiuresis and ATN/AIN with Bactrim and lisinopril on board, continue normal saline hydration, Cr litle better 2.9-2.4 today, renal sono pending, urine eosinophils pending, urine studiesCKD baseline creatinine 1.6 back in March 2023 2. Coronary artery disease: Status post CABG, continue home medications 3. COPD: Symptomatic treatment 4. History of prostate cancer, s/p radiation 2021 5. anemia: Requested stool occult blood and iron studies, transfuse as needed for hemoglobin less than 7. at 1426 RPT #:[id number] OF REPORTPRProgress goia3432-35-61P20:17:00G.[id number] able for patient hncbSEAOTSSXXWVWUX0990-47-98N27:26:46 [facility] 2023-04-10 11:14:00 [id number]+zOk7Ru2r76h0mG hk/oMQ+8vCHCbkTLna2TDEamDx65381-50-59N63:14:00 [facility])Cardiothoracic Surgery ProgREPORT#:[id number] REPORT STATUS: SignedDATE:04/10/23 TIME: 1114 PATIENT: TEVIN NYE UNIT #: [id number]#: [id number] [address] [birth year] AGE: 73 SEX: M ATTEND: Elvie Gamboa MDADM AUTHOR: Evon Andrew Physic * ALL edits or amendments must be made on the electronic/computer document * GeneralStatus post:03/04/2023 CABG x 4 (MCCORMICK-LAD,SVG-Renea, SVG-OM, SVG-PDA SubjectiveChief complaint:Resting comfortable. Review of SystemsConstitutional:Denies: fever, generalized weakness. Respiratory:Reports: SOB. Cardiovascular:Reports: [place] (dyspnea on exertion). Denies: chest pain, edema. GI:Denies: constipation, diarrhea. Musculoskeletal:Denies: joint pain, joint swelling. Heme:Denies: bleeding, bruising. Endocrine:Denies: polydipsia, polyuria. Neuro:Denies: dizziness. Psych:Denies: agitation, anxiety. Objective GeneralVS/I OLast Documented: Result Date Time O2 Delivery Nasal cannula 04/10 103 O2 Flow Rate 3 04/10 1032 Pulse Ox 99 04/10 729 B/P 103/51 04/10 729 B/P Mean 68.2 04/10 729 Temp 97.9 04/10 729 Pulse 68 04/10 729 Resp 16 04/10 729 PATIENT WEIGHT: Weight (lb): Weight (oz): Weight (kg): 86.200 Physical ExamGeneral appearance: alert, awake, orientedHEENT: mucosal membranes moistCardiovascular: regular rate rhythmRespiratory: aerating well, clear to auscultationAbdomen: soft, non-tenderExtremities: dry, moves allMusculoskeletal: full range of motionNeuro/SALES ASSISTANT: alert, oriented X 3Skin: dry, intact Diagnosis, Assessment PlanHospital course to date:This is a 73-year-old gentleman with past medical history of coronary artery disease status post coronary artery bypass graft surgery on 3CABG x 4 (MCCORMICK-LAD,SVG-Renea, SVG-OM, SVG-PDA) Patient was DC'd home on 03/13/2023. He was DC'd home on home oxygen for findingsconsistent with COPD. The patient reports over the past few weeks he has experienced increased shortness of breath with exertion.The patient denies any lower extremity edema and in fact reports his lower extremity edema has slightly improved since his hospital stay. The patient presented to hospital on [facility] for evaluation of shortness ofbreath. During his hospitalization for coronary bypass graft surgery the patient's creatinine wero to 3 and came down to baseline of 1.6.His admission creatinine today 2.9 The patient denies any chest pains, denies any palpitations. Assessment/plan1. Coronary artery disease Status post coronary bypass graft surgery . CKD Consult renal3. COPD4. Shortness of breath Sternal wound is clean and dry. There is no signs of infection. Sternum is stable.Left leg wound graft site also clean and dry no signs of infection We will obtain echocardiogram, cardiac consultation and renal consultation.Continue daily labsDaily chest x-rayWe will continue to follow 04/09/23Patient resting comfortableON 2 L NCLabs reviewedElevated Creatine. Nephrology consulted.Awaiting echo-Cardiology consulted. COPD, will consult pulmonaryPatient was seen and examined by Dr. Villeda. Continue supportive care 04/10/23Patient resting comfortableDenies complaints, feeling betterCreatinine improving, renal following. Given IV fluidsRestart back on Eliquis as per pulmonary recommendation due to history of PE, DC PlavixEchocardiogram completed showing EF 55-59%, Trivial pericardial effusionCOPD, pulmonary followingContinue supportive care. at 1141 at 0731 RPT #:[id number] OF REPORTPRProgress [id number]:14:00G.[id number] able for patient qmzwRNCAVTYAIZCVAO0499-32-37C24:42:08 [facility] 2023-04-10 09:30:00 [id number]+lSW5 XQZX3Wx7c6RpCxuUckXToS/f8m60820-78-05Q19:30:33074 3-0012 [place] [id number] PATIENT NAME: TEVIN NYE ADMIT DATE: 04/08/23ACCOUNT NO: [id number] ROOM NO: G.5517 AGE: 73 REPORT TYPE: eECHOCARDIOGRAM REPORT SEX: M ADMITTING PHYSICIAN:Elvie Gamboa MD ATTENDING PHYSICIAN:Elvie Gamboa MD *[address] [address]Vrtev: [phone]: [phone] Transthoracic Echocardiogram Patient: Tevin NyeStudarnold Date: 04/09/2023 BP: 103 / 58 Location: [facility]: [id number] : 1950 Age: 73 Height: 67 in / 170.2 cmAccession#: [id number] Gender: M Weight: 189.6 lb / 86.2 kgBMI/BSA: 29.8 kg/m 2 / 1.98 m 2 *Ordering Physician: * Evon Andrew *Interpreting Physician: * Anibal Haynes MD*Financial Cost Analyst: * Tori Gunn Indications: Shortness of Breath; S/P CABG. Study data: Transthoracic echocardiogram. Procedure: Transthoracicechocardiography was performed. Image quality was adequate. The studywas technically limited due to body habitus. Complete 2D, completespectral Doppler, and color Doppler. Location: Bedside. Patientstatus: Inpatient. Patient room number: 5517. Study status: Routine.Rhythm: Bradycardia. Findings Left ventricle: The cavity size is normal. Wall thickness is normal.Systolic function is normal. The estimated ejection fraction is 55-59%.Average global longitudinal strain is -10.6. The tissue Dopplerparameters are abnormal.Right ventricle: Estimated TAPSE is 1.8 cm. The cavity size is normal.PATIENT NAME: TEVIN NYE Systolic function is normal. Systolic pressure is within the normalrange.Left atrium: The atrium is normal in size.Right atrium: The atrium is normal in size.Aorta: Aortic root: The aortic root is normal in size.Aortic valve: The valve is structurally normal. The valve istrileaflet. There is no evidence of stenosis. There is noregurgitation.Mitral valve: The valve is structurally normal. There is noevidence of stenosis. There is mild regurgitation.Tricuspid valve: Estimated right ventricular systollic pressure is 25mmHg. The valve is structurally normal. There is mild regurgitation.Pulmonic valve: Not visualized. There is no regurgitation.Pericardium: A trivial pericardial effusion is identified.Pulmonary arteries:Main pulmonary artery: The artery is of normal size.Systemic veins:Inferior vena cava: The vessel is normal in size. The respirophasicdiameter changes are in the normal range (= 50%). Measurements Left ventricle Value 03/11/2023 Ref GLS, 2D -17 % ---- PHIL, LAX 4.4 cm 4.4 4.2 - 5.8 ESD, LAX 3.2 cm 3.3 2.5 - 4.0 ESD/bsa, 1.6 cm/m 2 1.7 1.3 LAX - 2.1 FS, LAX 29 % 24 25 - 43 ESD/bsa 3.3 cm/m 2 3.6 ---- major ax, A4C PHIL/bsa 3.3 cm/m 2 3.6 ---- minor ax, A4C PHIL major 7.5 cm 8.1 ---- ax, A2C ESD major 6.0 cm 8.1 ---- ax, A2C PHIL/bsa 3.8 cm/m 2 4.1 ---- major ax, A2C ESD/bsa 3.1 cm/m 2 4.1 ---- major ax, A2C PW, ED 0.7 cm 0.9 0.6 -PATIENT NAME: TEVIN NYE 1.0 IVS/PW, ED 1.28 0.94 ---- EF 56 % 48 52 - 72 E', lat 13.6 cm/sec >=10 mercedes, TDI .0 E/e', lat 9 ---- mercedes, TDI E', med 7.3 cm/sec >=7. mercedes, TDI 0 E/e', med 16 ---- mercedes, TDI E', avg, 10.5 cm/sec ---- TDI E/e', avg, 11 <=14 TDI LVOT Value 03/11/2023 Ref Diam, S 1.89 cm ---- Area 2.8 cm 2 ---- Peak kirby, 1.04 m/sec ---- S Mean kirby, 0.64 m/sec ---- S VTI, S 22.1 cm ---- Peak grad, 4 mm Hg ---- S Mean grad, 2 mm Hg ---- S SV 62 ml ---- Qs 3.5 L/min ---- Qs/bsa 1.8 L/(min-m 2) ---- SV/bsa 31 ml/m 2 ---- Ventricular septum Value 03/11/2023 Ref IVS, ED 0.9 cm 0.9 0.6 - 1.0 Right ventricle Value 03/11/2023 Ref PHIL, LAX 2.6 cm ---- TAPSE, MM 1.8 cm 1.9 1.7 - 3.1 RVOT Value 03/11/2023 Ref Peak v, S 0.55 m/sec ---- Peak grad, 1 mm Hg ---- S Left atrium Value 03/11/2023 Ref AP dim, ES 3.79 cm 3.00 - 4.00PATIENT NAME: TEVIN NYE Vol/bsa, 19 ml/m 2 12 12 - ES, 1-p 37 A4C Vol, ES, 41 ml 40 ---- 2-p Vol/bsa, 21 ml/m 2 20 16 - ES, 2-p 34 Vol/bsa, 21 ml/m 2 12 16 - ES, A/L 34 AP dim, ES 3.6 cm 3.0 MM - 4.0 LA/Ao root 1.05 ---- ratio, MM Right atrium Value 03/11/2023 Ref Area, ES 15 cm 2 10 - 18 SI dim, 4.8 cm 3.4 ES, A4C - 5.3 SI 2.4 cm/m 2 1.8 dim/bsa, - ES, A4C 3.0 Vol, ES, 41 ml ---- A/L Vol, ES, 38 ml ---- 1-p A4C Vol/bsa, 19 ml/m 2 11 - ES, 1-p 39 A4C Aortic valve Value 03/11/2023 Ref Leaflet 2.63 cm ---- sep, MM Peak v, S 1.27 m/sec ---- Mean v, S 0.83 m/sec ---- VTI, S 24.5 cm ---- Mean grad, 3.1 mm Hg ---- S Peak grad, 6.5 mm Hg ---- S LVOT/AV, 0.9 ---- VTI ratio MEL, VTI 2.53 cm 2 ---- LVOT/AV, 0.82 ---- Vpeak ratio MEL, Vmax 2.30 cm 2 ---- Mitral valve Value 03/11/2023 Ref Peak E 1.18 m/sec ---- Peak A 0.74 m/sec ---- Mean v, D 0.62 m/sec ----PATIENT NAME: TEVIN NYE VTI 37.1 cm ---- leaflet coapt Decel time 189 ms ---- PHT 75 ms ---- Mean grad, 1.9 mm Hg ---- D Peak grad, 5.6 mm Hg ---- D Peak E/A 1.6 ---- ratio MVA, PHT 2.9 cm 2 ---- MR peak v 2.57 m/sec ---- Pulmonic valve Value 03/11/2023 Ref MN v, ED 0.56 m/sec ---- Tricuspid valve Value 03/11/2023 Ref TR peak v 2.24 m/sec <=2. 8 Peak RV-RA 20 mm Hg ---- Abbie verudgo Aortic root Value 03/11/2023 Ref Root diam, 3.42 cm ---- ED MM Conclusions Summary: 1. Left ventricle: The cavity size is normal. Wall thickness is normal. Systolic function is normal. The estimated ejection fraction is 55-59%.2. Mitral valve: There is mild regurgitation.3. Tricuspid valve: Estimated right ventricular systollic pressure is 25 mmHg. There is mild regurgitation.4. Pericardium, extracardiac: A trivial pericardial effusion is identified. Prepared and electronically signed by Anibal Haynes MD04/10/2023 09:30 at 0930 PATIENT NAME: TEVIN NYE :30:0 0G.[id number] for patient xgnvKHHNOUAULTEAQX2993-13-72T96:31:28 [facility] 2023-04-10 08:17:00 [id number] inxnfbSRaxqK8oQaYwr1H2Nqz3npM jJ0pAxR80k3k9mN9zOXmGVPKofF1059-83-87G24:17:00 [facility] ([facility])Pulmonology Progress NoteREPORT#:[id number] REPORT STATUS: SignedDATE:04/10/23 TIME: 816 PATIENT: TEVIN NYE UNIT #: [id number]#: [id number] [address]DOB: [birth year] AGE: 73 SEX: M ATTEND: Elvie Gamboa [facility] AUTHOR: Rose Canseco * ALL edits or amendments must be made on the electronic/computer document * Rose Canseco 04/10/23 0817:SubjectiveChief complaint:sobHPI:Coverage for Dr. Alan. Seen and examined, events noted.BLE doppler neg DVTdiscussed anticoag with cardio to maximize therapy and limit bleed riskcardio okay with DC'ing plavix to initiate dual therapy with eliquis/asawill need periph angio when cr improvedpt with no new c/o. discussed poc pt is agreeable. ROS neg f/c, n/v, cp Objective GeneralVS/I O:Last Documented: Result Date Time Pulse Ox 99 04/10 729 B/P 103/51 04/10 729 B/P Mean 68.2 04/10 729 O2 Delivery Room air 04/10 729 Temp 97.9 04/10 07 Pulse 68 04/10 0729 Resp 16 04/10 729 O2 Flow Rate 3 04/09 2230 PATIENT WEIGHT: Weight (lb): Weight (oz): Weight (kg): 86.200 Physical ExamGeneral appearance: alert, awake, oriented, no acute distressHead/eyes: atraumatic, normocephalic, PERRL, EOMINeck: no JVD, no lymphadenopathyCardiovascular: normal heart sounds, normal S1/S2, regular rate rhythmRespiratory/chest: decreased breath sounds, on oxygen, aerating well, symmetric expansionAbdomen: soft, no guardingExtremities: moves all, no clubbing, no cyanosis, no edemaNeuro/SALES ASSISTANT: CNII-XII intactSkin: dry, intactPsychiatry: normal affect, normal judgment/insight, normal mood ResultsFindings/Data:Laboratory Tests 04/10/23 0615:[Embedded Image Not Available] 04/10/23 0614:[Embedded Image Not Available]Laboratory Tests 04/10 04/10 04/09 04/09 0722 0614 1903 1257 Chemistry Sodium (134 - 147 mEq/L) 142 Potassium (3.4 - 5.0 mEq/L) 4.3 Chloride (100 - 108 mEq/L) 108 Carbon Dioxide (21 - 33 mEq/l) 28 Anion Gap (0 - 20) 10 BUN (7 - 18 mg/dL) 42 H Creatinine (0.6 - 1.3 mg/dL) 2.4 H Glomerular Filtr Rate (70 - 80) 28.0 L Glucose (70 - 110 mg/dL) 178 H POC Glucose (70 - 110 MG/DL) 180 H 281 H 162 H Calcium (8.0 - 10.5 mg/dL) 8.6 Laboratory Tests 04/10 0615 Hematology WBC (4.5 - 11.0 x10 3/uL) 4.4 L RBC (4.00 - 5.60 x10 6/uL) 2.81 L Hgb (12.5 - 16.9 g/dL) 8.1 L Hct (37.5 - 50.7 %) 26.7 L MCV (81.0 - 99.0 fL) 95.0 MCH (27.0 - 33.0 pg) 28.8 MCHC (33.0 - 37.0 g/dL) 30.3 L RDW (11.5 - 14.5 %) 15.8 H Plt Count (150 - 400 x10 3/uL) 212 MPV (7.0 - 9.0 fL) 10.5 H Neut % (Auto) (56.0 - 77.0 %) 81.0 H Lymph % (Auto) (14.0 - 32.0 %) 8.6 L [place] % (Auto) (4.8 - 9.0 %) 7.7 Eos % (Auto) (0.3 - 3.7 %) 0.7 Baso % (Auto) (0.0 - 2.0 %) 0.9 Neut # (Auto) (2.0 - 7.6 x10 3/uL) 3.58 Lymph # (Auto) (1.0 - 3.8 x10 3/uL) 0.38 L [place] # (Auto) (0.1 - 0.8 x10 3/uL) 0.34 Eos # (Auto) (0.0 - 0.2 x10 3/uL) 0.03 Baso # (Auto) (0.0 - 0.2 x10 3/uL) 0.04 Abs Immat Gran (auto) (0.00 - 0.03 x10 3/uL) 0.05 H Add Manual Diff NO Immature Gran % (0.0 - 2.0 %) 1.1 Nucleated RBC % (0 - 0 %) 0.0 Nucleated RBCs # (Man) (0.0 - 0.1 x10 3/uL) 0.00 Radiology data:Recent Impressions:NUCLEAR MEDICINE - NM LUNG PERF PARTICULATE 04/09 1130 Report Impression - Status: SIGNED Entered: 04/09/2023 1257 IMPRESSION:1. Intermediate likelihood ratio for pulmonary embolism. Recommend CTA chest with contrast using PE protocol for further evaluation.Normal: < 5% probability of pulmonary embolism.Low likelihood ratio: < 20 % probability of pulmonary embolism.Intermediate likelihood ratio: 20-80% probability of pulmonary embolism.High likelihood ratio: > 80% probability of pulmonary embolism.Impression By: [email or web address] - Manish Son M.D.ULTRASOUND - DUP VEIN SCOTTY 04/09 1659 Report Impression - Status: SIGNED Entered: 04/09/2023 1756 IMPRESSION: No evidence of deep vein thrombosis. Impression By: [email or web address] - Chilo Cabrera M.D.ULTRASOUND - DUP LE ART SCOTTY 04/09 1659 Report Impression - Status: SIGNED Entered: 04/09/2023 1920 IMPRESSION: Suspicion of stenosis disc proximal to the right popliteal artery with abnormal spectral Doppler waveforms distally. On the left side findings are suspicious for proximal stenosis in the area of the left common femoral artery with decreased amplitude monophasic waveforms in the arterial system throughout. The findings are concerning for stenosis throughout the arterial system of the left lower extremity. Further assessment with a CT angiogram of the lower extremities with peripheral runoffs may be useful, if clinically indicated.Impression By: [email or web address] - Slava Tran M.D. Diagnosis, Assessment PlanFree Text A P:Acute on chronic hypoxemic respiratory failure supplemental O2 as needed and wean as tolerated Pulmonary embolism Initially diagnosed in November 2022 at outside hospital; was on Eliquis from diagnosis through February. CTA chest 03/03/2023 was negative for pulmonary embolism. Patient was discharged home 03/13/2023 and told to discontinue taking Eliquis.-D-dimer 1496. -VQ scan with intermediate probability. 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 Check bilateral lower extremity Dopplers -> neg-Renally dose lovenox @ 1mg/kg once daily -d/w cardio. will ultimately AC with eliquis asa and DC plavix. Continue lovenox for now. COPD No exacerbation. On Combivent and ipratropium nebs at home.-May need repeat pulmonary function test outpatient. Follows with the OR but looking for civilian patient registration specialist due to issues with the [facility] RLL nodule CT chest 03/03/2023. 1.5 x 0.8 cm nodular opacity in RLL needs follow-up in 3 months CAD / PAD S/p CABG 03/04/2023 Cardiothoracic surgery following Pending echo- will need periph angio when cr improved JERAMY/CKD Nephrology consult Strict I O. Measure UOP.- IVF Follow labs History of prostate cancer S/p radiation in 2021 Christiano Gutierrez 04/10/23 1805:Attestations Physician AttestationAgree w/findings plan:Seen and examined.I agree with the findings and plan as documented by Abbie Casneco PA-C. at 1435 at 1813 RPT #:[id number] OF REPORTPRProgress [id number]:17:00G.[id number] able for patient extqHTZUKZYWYTGNJR6005-57-48F45:35:37 [facility] 2023-04-10 06:34:00 [id number] +HVO1CMsnlCRe05Mlt3NLjtXL/h97 KrNuJgj8cZdoG0MlXUQqn1jUBPa1938-91-41R95:34:00 [facility] ([facility])Podiatry Progress NoteREPORT#:[id number] REPORT STATUS: SignedDATE:04/10/23 TIME: 633 PATIENT: TEVIN NYE UNIT #: [id number]#: [id number] [address] [birth year] AGE: 73 SEX: M ATTEND: Elvie Gamboa AUTHOR: Andres Rachel DPM * ALL edits or amendments must be made on the electronic/computer document * SubjectivePatient reports: no constipation, no diarrhea, no dizziness, no fatigue, no headache, no heartburn, no nauseaComments:dressing had fallen off of the foot. pt has pain. only takes tylenol. events notes. states xray done. Review of SystemsConstitutional:Reports: generalized weakness, lethargy, malaise. Skin:Reports: abrasion, bruising, contusion. Neuro:Reports: numbness. Denies: seizure. Objective GeneralVS:Last Documented: Result Date Time Pulse Ox 97 04/10 316 B/P 110/71 04/10 316 B/P Mean 84.2 04/10 316 Temp 36.5 04/10 316 Pulse 49 04/10 316 Resp 14 04/10 316 O2 Delivery Nasal cannula 04/09 2230 O2 Flow Rate 3 04/09 2230 PATIENT WEIGHT: Weight (lb): Weight (oz): Weight (kg): 86.200 Medications:Active Meds + DC'd Last 24 HrsAtorvastatin Calcium (LIPITOR) 40 MG 2100 PO Lactulose (LACTULOSE) 20 GM BID PRN PRN PO Enoxaparin Sodium (lovENOX) 86 MG Q24H SUBQ Miscellaneous Information (LOVENOX PHARMACY TO DOSE) 1 EACH ASDIR SUBQ (CKD) Sterile Water (WATER FOR IRRIGATION) DRESSING CHANGE ASDIR PRN IRR Sodium Chloride (SODIUM CHLORIDE 0.9%) 1,000 ML .[id number] IV Aspirin (ASPIRIN) 81 MG DAILY PO Clopidogrel Bisulfate (Plavix) 75 MG DAILY PO Amlodipine Besylate (NORVASC) 10 MG DAILY PO Fluoxetine HCl (PROzac) 10 MG QAM PO Insulin Human Lispro (HUMALOG) 0 AC HS SUBQ Albuterol/Ipratropium (DUONEB) 3 ML RTQ4H NEB Metoprolol Tartrate (LOPRESSOR) 25 MG Q12HR PO Tamsulosin HCl (Flomax 0.4 mg) 0.8 MG BEDTIME PO Acetaminophen (TYLENOL) 650 MG Q4H PRN PRN PO Hydrocodone Bitart/Acetaminophen (NORCO 5/325) 1 TAB Q4H PRN PRN PO Morphine Sulfate (morphine SULFATE) 4 MG Q4H PRN PRN IV Ondansetron HCl (ZOFRAN) 4 MG Q4H PRN PRN IV Dietitian nutrition assessmentThe data set between the solid lines has been imported from the dietitian's assessment. BMI Calculated: 29.8Nutrition related diagnosis: Nutrition diagnosis details: Nutrition problem: Nutrition etiology: Nutrition signs and symptoms: Nutrition prescription: Dietitian name: Assessment completed: Physical ExamGeneral appearance: alert, awake, oriented, no acute distress, pleasant, conversationalWound/incision: Location:bilat foot Site condition: small pinpoint ulcer right foot. ulcer left forefoot dorsal. partial and full thickness. no erythema. no depth.LE vascular pulse assess:Nonpalpable R posterior tibialis, Nonpalpable L posterior tibialis, Nonpalpable R dorsalis pedis, Nonpalpable L dorsalis pedisFeet Top - Top View (L)[Embedded Image Not Available] 1) ResultsFindings/Data:Laboratory Tests: 04/09 04/09 1903 1257 Chemistry POC Glucose (70 - 110 MG/DL) 281 H 162 H Recent Impressions:NUCLEAR MEDICINE - NM LUNG PERF PARTICULATE 04/09 1130 Report Impression - Status: SIGNED Entered: 04/09/2023 1257 IMPRESSION:1. Intermediate likelihood ratio for pulmonary embolism. Recommend CTA chest with contrast using PE protocol for further evaluation.Normal: < 5% probability of pulmonary embolism.Low likelihood ratio: < 20 % probability of pulmonary embolism.Intermediate likelihood ratio: 20-80% probability of pulmonary embolism.High likelihood ratio: > 80% probability of pulmonary embolism.Impression By: [email or web address] - Manish Soderstrom, M.D.ULTRASOUND - DUP VEIN SCOTTY 04/09 1659 Report Impression - Status: SIGNED Entered: 04/09/2023 175 IMPRESSION: No evidence of deep vein thrombosis. Impression By: [email or web address] - Chilo Cabrera M.D.ULTRASOUND - DUP LE ART SCOTTY 04/09 1659 Report Impression - Status: SIGNED Entered: 04/09/2023 1920 IMPRESSION: Suspicion of stenosis disc proximal to the right popliteal artery with abnormal spectral Doppler waveforms distally. On the left side findings are suspicious for proximal stenosis in the area of the left common femoral artery with decreased amplitude monophasic waveforms in the arterial system throughout. The findings are concerning for stenosis throughout the arterial system of the left lower extremity. Further assessment with a CT angiogram of the lower extremities with peripheral runoffs may be useful, if clinically indicated.Impression By: [email or web address] Og Tran M.D. Allergies Allergy Severity Reaction Updated Coded Penicillins Unknown USE COMMENT BUTTON 03/03/23 Laboratory Tests 04/09/23 0502:[Embedded Image Not Available] 04/08/23 2030:[Embedded Image Not Available] 04/08/23 1307:[Embedded Image Not Available]Recent Impressions-Last 72 HrsRADIOLOGY - XR CHEST 2 V 04/08 1445 Report Impression - Status: SIGNED Entered: 04/08/2023 1534 IMPRESSION: Emphysematous changes noted in the right lower lung with prominent peribronchiolar markings noted. Impression By: Amber Valentin M.D.NUCLEAR MEDICINE - NM LUNG PERF PARTICULATE 04/09 1130 Report Impression - Status: SIGNED Entered: 04/09/2023 1257 IMPRESSION:1. Intermediate likelihood ratio for pulmonary embolism. Recommend CTA chest with contrast using PE protocol for further evaluation.Normal: < 5% probability of pulmonary embolism.Low likelihood ratio: < 20 % probability of pulmonary embolism.Intermediate likelihood ratio: 20-80% probability of pulmonary embolism.High likelihood ratio: > 80% probability of pulmonary embolism.Impression By: [email or web address] - Manish Son M.D.ULTRASOUND - DUP VEIN SCOTTY 04/09 1659 Report Impression - Status: SIGNED Entered: 04/09/2023 1756 IMPRESSION: No evidence of deep vein thrombosis. Impression By: [email or web address] Og Cabrera M.D.ULTRASOUND - DUP LE ART SCOTTY 04/09 165 Report Impression - Status: SIGNED Entered: 04/09/20231919 IMPRESSION: Suspicion of stenosis disc proximal to the right popliteal artery with abnormal spectral Doppler waveforms distally. On the left side findings are suspicious for proximal stenosis in the area of the left common femoral artery with decreased amplitude monophasic waveforms in the arterial system throughout. The findings are concerning for stenosis throughout the arterial system of the left lower extremity. Further assessment with a CT angiogram of the lower extremities with peripheral runoffs may be useful, if clinically indicated.Impression By: [email or web address] Og Tran M.D. Diagnosis, Assessment PlanFree Text A P:ulcer left foot.painPVD ulcer is benign...starting to peelcontinue local wound care.no xray found.venous u/s neg NIAS: pvd as expected. covering for Dr. [place] at 0639 RPT #:[id number] OF REPORTPRProgress wfvt5891-13-89P46:34:00G.[id number] able for patient rvlnMRUBIFNVDFSHEW2262-83-87S70:39:31 [facility] 2023-04-10 06:33:00 [id number] XoieQIiwWHMdRBlZD9u90Nz83Xsdh fEwo95rFLiJfT9ym51MLjeHeEK38322-31-08Z90:33:00 [facility] ([facility])Cardiology Progress NoteREPORT#:[id number] REPORT STATUS: SignedDATE:04/10/23 TIME: 06 PATIENT: TEVIN NYE UNIT #: [id number]#: [id number] ROOM/BED: 5517-1DOB: [birth year] AGE: 73 SEX: M ATTEND: Elvie Gamboa [facility] AUTHOR: Daniela Mari * ALL edits or amendments must be made on the electronic/computer document * SubjectiveComments:States he feels better. No SOB and has more energy compared to yesterday. Objective GeneralVS/I O:Vital Signs: Date Time Temp Pulse Resp B/P B/P Pulse O2 O2 Flow FiO2 Mean Ox Delivery Rate 04/106 36.5 49 14 110/71 84.2 97 04/09 2315 36.7 79 14 107/65 78.8 97 04/09 2230 Nasal 3 cannula 04/09 2013 Nasal 3 cannula 04/09 1947 97 Nasal 2 cannula 04/09 1902 36.5 73 14 121/64 83.3 100 04/09 1150 36.7 65 16 99/54 69.0 97 Nasal cannula 04/09 0846 99 Nasal 2 cannula 04/09 0846 99 Nasal 2 cannula 04/09 0706 36.6 67 16 96/50 65.3 96 Room air PATIENT WEIGHT: Weight (lb): Weight (oz): Weight (kg): 86.200 Medications:Active Meds + DC'd Last 24 HrsAtorvastatin Calcium (LIPITOR) 40 MG 2100 PO Lactulose (LACTULOSE) 20 GM BID PRN PRN PO Enoxaparin Sodium (lovENOX) 86 MG Q24H SUBQ Miscellaneous Information (LOVENOX PHARMACY TO DOSE) 1 EACH ASDIR SUBQ (CKD) Sterile Water (WATER FOR IRRIGATION) DRESSING CHANGE ASDIR PRN IRR Sodium Chloride (SODIUM CHLORIDE 0.9%) 1,000 ML .[id number] IV Aspirin (ASPIRIN) 81 MG DAILY PO Clopidogrel Bisulfate (Plavix) 75 MG DAILY PO Amlodipine Besylate (NORVASC) 10 MG DAILY PO Fluoxetine HCl (PROzac) 10 MG QAM PO Insulin Human Lispro (HUMALOG) 0 AC HS SUBQ Albuterol/Ipratropium (DUONEB) 3 ML RTQ4H NEB Metoprolol Tartrate (LOPRESSOR) 25 MG Q12HR PO Tamsulosin HCl (Flomax 0.4 mg) 0.8 MG BEDTIME PO Acetaminophen (TYLENOL) 650 MG Q4H PRN PRN PO Hydrocodone Bitart/Acetaminophen (NORCO 5/325) 1 TAB Q4H PRN PRN PO Morphine Sulfate (morphine SULFATE) 4 MG Q4H PRN PRN IV Ondansetron HCl (ZOFRAN) 4 MG Q4H PRN PRN IV Physical ExamGeneral appearance: alert, awake, orientedNeck: non-tender, no JVDCardiovascular: CV assessment: ectopy, irregular rhythmRespiratory: decreased breath sounds, no distressAbdomen: soft, non-tender, normal bowel sounds, no distentionGenitourinary: no flank pain, no urinary catheterLower extremity: LE assessment: abnormal pedal pulseMusculoskeletal: normal inspectionNeuro/SALES ASSISTANT: alert, oriented X 3, normal speechSkin: dry, intactUlcer: Type/cause: scab left foot.Psychiatry: normal affect, normal judgment/insight, normal mood ResultsFindings/Data:Laboratory Tests 04/09 04/09 1903 1257 Chemistry POC Glucose (70 - 110 MG/DL) 281 H 162 HLaboratory Tests 04/10/23 0615:[Embedded Image Not Available] 04/10/23 0614:[Embedded Image Not Available] 04/09/23 0502:[Embedded Image Not Available] 04/08/23 2030:[Embedded Image Not Available] 04/08/23 1307:[Embedded Image Not Available] Radiology data:Recent Impressions:NUCLEAR MEDICINE - NM LUNG PERF PARTICULATE 04/09 1130 Report Impression - Status: SIGNED Entered: 04/09/2023 1257 IMPRESSION:1. Intermediate likelihood ratio for pulmonary embolism. Recommend CTA chest with contrast using PE protocol for further evaluation.Normal: < 5% probability of pulmonary embolism.Low likelihood ratio: < 20 % probability of pulmonary embolism.Intermediate likelihood ratio: 20-80% probability of pulmonary embolism.High likelihood ratio: > 80% probability of pulmonary embolism.Impression By: [email or web address] - Manish Son M.D.ULTRASOUND - DUP VEIN SCOTTY 04/09 1659 Report Impression - Status: SIGNED Entered: 04/09/2023 1756 IMPRESSION: No evidence of deep vein thrombosis. Impression By: [email or web address] - Chilo Cabrera M.D.ULTRASOUND - DUP LE ART SCOTTY 04/09 1659 Report Impression - Status: SIGNED Entered: 04/09/2023 1920 IMPRESSION: Suspicion of stenosis disc proximal to the right popliteal artery with abnormal spectral Doppler waveforms distally. On the left side findings are suspicious for proximal stenosis in the area of the left common femoral artery with decreased amplitude monophasic waveforms in the arterial system throughout. The findings are concerning for stenosis throughout the arterial system of the left lower extremity. Further assessment with a CT angiogram of the lower extremities with peripheral runoffs may be useful, if clinically indicated.Impression By: [id number] Og Tran M.D. Results: labs reviewed, vital signs reviewed, rhythm personally rev'dTelemetry Interpretation:sinus rhythm with frequent triplets PVCs and trigeminal PVCsEcho results:Summary: 1. Left ventricle: The cavity size is normal. Wall thickness is normal. Systolic function is normal. The estimated ejection fraction is 55-59%.2. Mitral valve: There is mild regurgitation.3. Tricuspid valve: Estimated right ventricular systollic pressure is 25 mmHg. There is mild regurgitation.4. Pericardium, extracardiac: A trivial pericardial effusion is identified. Diagnosis, Assessment PlanPlan discussed with: patient, collaborating MD, consultants (henok PRITCHARD) Free Text DxA P NotesFree Text DxA P Notes:73 YO male with MHx of CAD s/p CABG less than 1 month ago, COPD, PE. He presentswith generalized weakness and near syncope. Per family the patient was progressively getting weak since being discharged from the hospital post CABG. Yesterday he was noticed to be really weak. The patient remarked he felt he was going to pass out. Other symptoms reported includes SOB, anorexia, LE edema, wound on the dorsum of the right foot. Creatinine elevated at 3, it was 1.6 when he was discharged few weeks ago. D-dimer elevated 1496. He has abnormal pedal pulses. 1. Dyspnea and presyncope likely d/t PE * Hx of PE, elevated D-dimer* Unable to CTA due to elevated creatinine* pulmonary is also consulted* echocardiogram preserrved LVEF* VQ suggestive of pulmonary embolism 2. CAD s/p CABG* stop Plavix, continue baby ASA plus AC of choice by pulmonology* continue BB and statin 3. JERAMY on CKD 2/2 volume depletion* creatinine trending down 3->2.9->2.4, (creat 1.6 when he was discharge 2 weeksago)* hold lisinopril* nephrology following* continue IVF 4. Left foot ulcer/abnormal arterial doppler* possible peripheral angiogram when kidney function stabilize* podiatry following 5. Hx of COPD* pulmonary following 6. Acute Pulmonary embolism - recurrent* AC per pulmonology* LE venous doppler no DVT 7. PVCs* Stop amlodipine as BP is soft* will go up on metoprolol to suppress frequent PVCs Stable CV status.mobilize OOB.PT/OT. MDM by Dr. Haynes. at 1133 at 1653 RPT #:[id number] OF REPORTPRProgress [id number]:33:00G.[id number] able for patient [id number]:34:05 [facility] 2023-04-09 23:51:00 [id number] FGq8/MKsEyqimR8WHN8nZ9xgUrN0f 6Il12LEFxx8i33hJrVwfPZG8Kyd4973-59-30H26:51:00 [facility] Progress NoteREPORT#:[id number] REPORT STATUS: SignedDATE:04/09/23 TIME: 2351 PATIENT: TEVIN NYE UNIT #: [id number]#: [id number] [address] [birth year] AGE: 73 SEX: M ATTEND: Elvie Gamboa AUTHOR: Elvie Gamboa MD * ALL edits or amendments must be made on the electronic/computer document * SubjectiveChief complaint:feeling better. back to home oxygenHPI:Patient is a 73-year-old male with past medical history of CAD s/p CABG by Dr. Villeda 03/03/2028, pulmonary embolism in November 2022, prostate cancer s/p radiation 2021, former smoker with COPD on home oxygen. Patient presenting for shortness of breath. no fevers, chills or sweats. no other comPatient is a 73-year-old male with past medical history of CAD s/p CABG by Dr. Villeda 03/03/2028, pulmonary embolism in November 2022, prostate cancer s/p radiation 2021, former smoker with COPD on home oxygen. Patient presenting for shortness of breath. Labs and imaging obtained have been personally reviewed. Objective GeneralVS/I O:Vital Signs: Date Time Temp Pulse Resp B/P B/P Pulse O2 O2 Flow FiO2 Mean Ox Delivery Rate 04/09 2315 98.1 79 14 107/65 78.8 97 04/09 2013 Nasal 3 cannula 04/09 1947 97 Nasal 2 cannula 04/09 1902 97.7 73 14 121/64 83.3 100 04/09 1150 98.1 65 16 99/54 69.0 97 Nasal cannula 04/09 0846 99 Nasal 2 cannula 04/09 0846 99 Nasal 2 cannula 04/09 0706 97.9 67 16 96/50 65.3 96 Room air 04/09 0330 98.1 65 18 103/58 73.1 97 04/08 2354 97 Nasal 3 cannula 24 hour I O ending at 0700: 04/09 0700 04/08 1900 Intake Total 750.00 Output Total 1100 Balance -350.00 Intake, IV 50.00 Intake, Oral 700 Number 0 Bowel Movements Number Voids 1 Output, Urine 1100 Patient 190 lb Weight Weight Bed scale Measurement Method PATIENT WEIGHT: Weight (lb): Weight (oz): Weight (kg): 86.200 Medications:Active Meds + DC'd Last 24 HrsAtorvastatin Calcium (LIPITOR) 40 MG 2100 PO Lactulose (LACTULOSE) 20 GM BID PRN PRN PO Enoxaparin Sodium (lovENOX) 86 MG Q24H SUBQ Miscellaneous Information (LOVENOX PHARMACY TO DOSE) 1 EACH ASDIR SUBQ (CKD) Sterile Water (WATER FOR IRRIGATION) DRESSING CHANGE ASDIR PRN IRR Sodium Chloride (SODIUM CHLORIDE 0.9%) 1,000 ML .K20S30R IV Aspirin (ASPIRIN) 81 MG DAILY PO Clopidogrel Bisulfate (Plavix) 75 MG DAILY PO Amlodipine Besylate (NORVASC) 10 MG DAILY PO Fluoxetine HCl (PROzac) 10 MG QAM PO Insulin Human Lispro (HUMALOG) 0 AC HS SUBQ Albuterol/Ipratropium (DUONEB) 3 ML RTQ4H NEB Metoprolol Tartrate (LOPRESSOR) 25 MG Q12HR PO Tamsulosin HCl (Flomax 0.4 mg) 0.8 MG BEDTIME PO Magnesium Sulfate (MAGNESIUM SULFATE 2GM/SWFI 50ML) 50 ML ONCE ONE IV (DC) Acetaminophen (TYLENOL) 650 MG Q4H PRN PRN PO Hydrocodone Bitart/Acetaminophen (NORCO 5/325) 1 TAB Q4H PRN PRN PO Morphine Sulfate (morphine SULFATE) 4 MG Q4H PRN PRN IV Ondansetron HCl (ZOFRAN) 4 MG Q4H PRN PRN IV Physical ExamGeneral appearance: no acute distressHead/Eyes: atraumatic, clear cornea, EOMINeck: supple/no meningismusCardiovascular: normal heart sounds, regular rate rhythm, no gallop, no murmur, no rubRespiratory: aerating well, clear to auscultation, symmetric expansionAbdomen: non-tender, normal bowel sounds, soft, no distentionExtremities: no clubbing, no cyanosis, no edemaMusculoskeletal: normal inspection, painless range of motionNeuro/SALES ASSISTANT: alert, oriented X 3, CNII-XII intactSkin: dry, intact ResultsFindings/Data:Laboratory Tests 04/09 04/09 04/09 04/09 04/09 1903 1257 0502 0502 0453 Chemistry Sodium (134 - 147 mEq/L) 141 Potassium (3.4 - 5.0 mEq/L) 4.5 Chloride (100 - 108 mEq/L) 105 Carbon Dioxide (21 - 33 mEq/l) 30 Anion Gap (0 - 20) 10 BUN (7 - 18 mg/dL) 47 H Creatinine (0.6 - 1.3 mg/dL) 2.9 H Glomerular Filtr Rate (70 - 80) 22.3 L Glucose (70 - 110 mg/dL) 121 H POC Glucose (70 - 110 MG/DL) 281 H 162 H 121 H Calcium (8.0 - 10.5 mg/dL) 9.1 Magnesium (1.80 - 2.40 mg/dL) 2.06 Laboratory Tests 04/09 0502 Hematology WBC (4.5 - 11.0 x10 3/uL) 4.8 RBC (4.00 - 5.60 x10 6/uL) 2.75 L Hgb (12.5 - 16.9 g/dL) 8.1 L Hct (37.5 - 50.7 %) 25.6 L MCV (81.0 - 99.0 fL) 93.1 MCH (27.0 - 33.0 pg) 29.5 MCHC (33.0 - 37.0 g/dL) 31.6 L RDW (11.5 - 14.5 %) 15.8 H Plt Count (150 - 400 x10 3/uL) 238 MPV (7.0 - 9.0 fL) 10.2 H Neut % (Auto) (56.0 - 77.0 %) 82.4 H Lymph % (Auto) (14.0 - 32.0 %) 7.1 L [place] % (Auto) (4.8 - 9.0 %) 6.5 Eos % (Auto) (0.3 - 3.7 %) 1.5 Baso % (Auto) (0.0 - 2.0 %) 0.6 Neut # (Auto) (2.0 - 7.6 x10 3/uL) 3.96 Lymph # (Auto) (1.0 - 3.8 x10 3/uL) 0.34 L [place] # (Auto) (0.1 - 0.8 x10 3/uL) 0.31 Eos # (Auto) (0.0 - 0.2 x10 3/uL) 0.07 Baso # (Auto) (0.0 - 0.2 x10 3/uL) 0.03 Abs Immat Gran (auto) (0.00 - 0.03 x10 3/uL) 0.09 H Add Manual Diff NO Immature Gran % (0.0 - 2.0 %) 1.9 Nucleated RBC % (0 - 0 %) 0.0 Nucleated RBCs # (Man) (0.0 - 0.1 x10 3/uL) 0.00 Radiology data:Recent Impressions:NUCLEAR MEDICINE - NM LUNG PERF PARTICULATE 04/09 1130 Report Impression - Status: SIGNED Entered: 04/09/2023 1257 IMPRESSION:1. Intermediate likelihood ratio for pulmonary embolism. Recommend CTA chest with contrast using PE protocol for further evaluation.Normal: < 5% probability of pulmonary embolism.Low likelihood ratio: < 20 % probability of pulmonary embolism.Intermediate likelihood ratio: 20-80% probability of pulmonary embolism.High likelihood ratio: > 80% probability of pulmonary embolism.Impression By: [id number] Og Son M.D.ULTRASOUND - DUP VEIN SCOTTY 04/09 1659 Report Impression - Status: SIGNED Entered: 04/09/2023 1756 IMPRESSION: No evidence of deep vein thrombosis. Impression By: BuckWH3 Og Cabrera M.D.ULTRASOUND - DUP LE ART SCOTTY 04/09 1659 Report Impression - Status: SIGNED Entered: 04/09/2023 1920 IMPRESSION: Suspicion of stenosis disc proximal to the right popliteal artery with abnormal spectral Doppler waveforms distally. On the left side findings are suspicious for proximal stenosis in the area of the left common femoral artery with decreased amplitude monophasic waveforms in the arterial system throughout. The findings are concerning for stenosis throughout the arterial system of the left lower extremity. Further assessment with a CT angiogram of the lower extremities with peripheral runoffs may be useful, if clinically indicated.Impression By: [id number] Og Tran M.D. Diagnosis, Assessment Plan Free Text DxA P NotesFree text DxA P notes:SOBcardiology and pulmonary seenon 2 liters of oxygen per n/cecho ordered elevated D-dimerV-Q scan with intermediate probability-defer to pulmonary JERAMY with CKDrenal seenon IVF COPDon home oxygen h/o CADs/p CABG X4 on 03/04/2023TS consulted and seen DMaccuchecks and SSI prncheck A1CBG controlled HTNbp controlledresumed home meds HLDon statinstable Prostate cancers/p XRT follow labs at 1051 RPT #:[id number] OF REPORTPRProgress [id number]:51:00G.[id number] able for patient dqrePBURWEIPYHHLNX3625-13-96Y41:52:26 [facility] 2023-04-09 18:10:00 [id number]/pd oS6feJxh5c3NBB5aNPUbnc/F8cs7a PwMGz5A7vm/ZfWzz9TbCMD857eq3891-90-87D06:10:00 [facility] ([facility])Nephrology Consultation NoteREPORT#:[id number] REPORT STATUS: SignedDATE:04/09/23 TIME: 1809 PATIENT: TEVIN NYE UNIT #: [id number]#: [id number] [address] [birth year] AGE: 73 SEX: M ATTEND: Elvie Gamboa [facility] AUTHOR: Monserrat Bobo MD * ALL edits or amendments must be made on the electronic/computer document * See AddendumHistory of Present IllnessRequesting clinician: Dr Hoffman for consult:Julia complaint:Shortness of breathPCP:PCP: Samuel Mcguire MD HPI:Patient is 73 years old man with past medical history of coronary artery disease, s/p CABG, pulmonary embolism, prostate cancer s/p radiation, former smoker, COPD presented to emergency department with shortness of breath. Patient has family member in the room who states that patient has been swollen mostly and hehas been noticing that for the last few days he has not been swollen. Patient denies having any nausea vomiting diarrhea. He felt very lightheaded and almostfainted before coming to hospital.Nephrology was consulted for acute renal failure. Patient states he had kidney disease dating back in 2019, when he had a fall from the ladder and when he wentto ER he was told to have kidney problem and it got worse in the hospital, he states he acute renal failure but then recovered. Patient states when he was admitted few months ago to hospital he had acute renal failure but he recovered. Baseline creatinine last month 1.6. On admission creatinine was 2.9. Patient has been on diuretics at home, he takes Lasix 20 mg p.o. twice daily, patient isalso on lisinopril and recently on 03/27/2023 he was started on Bactrim.Hx Obtained From Patient History - Adult longitudinalPast medical history:Reports: COPD, Diabetes mellitus, Hypertension, BPH, Dyslipidemia. Past surgical history:Reports: Knee procedure, Lung surgery (collapsed lung). Additional surgical history:CABGAdditional family history:UTOAlcohol use: Denies EtOH useDrug use: Denies recreational drugsSmoking status for patients 13 years old or older: Former SmokerAdditional social history:LIVES AT HOME ALONE. HIS YOUNGER BROTHER LIVES ACROSS THE STREET. SSH. NO STAIRS. HE WAS IND PLOF. NO DME USED . OCCASSIONAL CANE USED. NO OXYGENMedications:Home Medications:Medication Dose/Rte/Freq Days Qty Entered Last Max Daily Dose Reviewed OXYBUTYNIN (DITROPAN) 5 MG PO BID 03/03/23 04/08/23Strength: 5 MG TAB 1937 1837 FLUoxetine (PROzac) 10 MG PO QAM 03/03/23 04/08/23Strength: 10 MG CAP 1938 1842 LATANOPROST 1 DROP EACH EYE 03/03/23 04/08/23 (XALATAN 0.005% OPHTH BEDTIME 1939 1843 SOLN)Strength: 0.005 %OPHTH.SOLN INSULIN LISPRO 6 03/03/23 04/08/23 (HumaLOG KWIKPEN (3mL)) 1942 1844Strength: 100 UNIT/MLINSULN.PEN CALCIUM CARBONATE/VIT 2 TAB PO DAILY 03/03/23 04/08/23 D3 1944 1836 (CALCIUM CARB/VIT D3 500 MG/200 UNITS)Strength: 500 MGCALCIUM-5 MCG (200 UNIT)TAB CYANOCOBALAMIN 100 MCG PO DAILY 03/03/23 04/08/23 (VITAMIN B-12) 1944 1843Strength: 100 MCG TAB TAMSULOSIN ER (FLOMAX) 0.8 MG PO BEDTIME 2 03/03/23 04/08/23Strength: 0.4 MG 1938 1838CAP.SR.24H INSULIN LISPRO (HumaLOG) 30 03/03/23 04/08/23Strength: 100 UNIT/ML 1943 1844VIAL FUROSEMIDE (LASIX) 20 MG PO BID 04/08/23 04/08/23Strength: 20 MG TAB 1840 1840 BRIMONIDINE 1 DROP EACH EYE BID 04/08/23 04/08/23 (ALPHAGAN 0.2% OPHTH 1845 1848 SOLN)Strength: 0.2 %OPHTH.SOLN SULFAMETHOXAZOLE/TMP 1 TAB PO BID 04/08/23 04/08/23 (BACTRIM DS 800/160 MG) 1848 1849Strength: 800 MG-160 MGTAB HYDROCHLOROTHIAZIDE 25 MG PO DAILY 04/08/23 04/08/23 (HYDRODIURIL) 1848 1849Strength: 25 MG TAB LISINOPRIL (ZESTRIL) 20 MG PO DAILY 04/08/23 04/08/23Strength: 20 MG TAB 1849 1849 ATORVASTATIN (LIPITOR) 40 MG PO 2100 30 30 03/13/23 04/08/23Strength: 40 MG TAB 1446 1841 METOPROLOL TARTRATE 25 MG PO Q12HR 30 60 03/13/23 04/08/23 (LOPRESSOR) 1446 1842Strength: 25 MG TAB amLODIPine (NORVASC) 10 MG PO DAILY 30 30 03/13/23 04/08/23Strength: 10 MG TAB 1446 1842 ASPIRIN 81 MG PO DAILY 30 30 03/13/23 04/08/23Strength: 81 MG TAB.CHEW 1447 1836 Current Hospital Medications:Autonomic Drugs Sig/Yas Start time Last Medication Dose Route Stop Time Status Admin Albuterol/Ipratropium 3 ML RTQ4H 04/09 0000 AC 04/09 (DUONEB) NEB 05/09 0000 0845 Tamsulosin HCl 0.8 MG BEDTIME 04/08 2300 AC 04/08 (Flomax 0.4 mg) PO 05/08 2259 2308 Blood Formation,Coagulation Sig/Yas Start time Last Medication Dose Route Stop Time Status Admin Enoxaparin Sodium 86 MG Q24H 04/09 1615 AC (lovENOX) SUBQ 05/09 1614 Clopidogrel Bisulfate 75 MG DAILY 04/09 1015 AC 04/09 (Plavix) PO 05/09 1014 1251 Cardiovascular Drugs Sig/Yas Start time Last Medication Dose Route Stop Time Status Admin Atorvastatin Calcium 40 MG 2100 04/09 2100 AC (LIPITOR) PO 05/09 2059 Amlodipine Besylate 10 MG DAILY 04/09 0900 AC (NORVASC) PO 05/09 0859 Metoprolol Tartrate 25 MG Q12HR 04/08 2300 AC 04/08 (LOPRESSOR) PO 05/08 2259 2308 Central Nervous System Agents Sig/Yas Start time Last Medication Dose Route Stop Time Status Admin Aspirin 81 MG DAILY 04/09 1015 AC 04/09 (ASPIRIN) PO 05/09 1014 1250 Fluoxetine HCl 10 MG QAM 04/09 0900 AC 04/09 (PROzac) PO 05/09 0859 0915 Magnesium Sulfate 50 ML ONCE ONE 04/08 2245 DC 04/08 (MAGNESIUM SULFATE IV 04/09 0044 2307 2GM/SWFI 50ML) Acetaminophen 650 MG Q4H PRN PRN 04/08 1800 AC (TYLENOL) PO 05/08 175 Hydrocodone Bitart/ 1 TAB Q4H PRN PRN 04/08 1800 AC Acetaminophen PO 04/13 1759 (NORCO 5/325) Morphine Sulfate 4 MG Q4H PRN PRN 04/08 1800 AC (morphine SULFATE) IV 04/13 175 Electrolytic, Caloric, And Agata Sig/Yas Start time Last Medication Dose Route Stop Time Status Admin Sterile Water See Dose ASDIR PRN 04/09 1230 AC (WATER FOR Insts (1) IRR 05/09 1229 IRRIGATION) Sodium Chloride 1,000 ML .Q20H 04/09 1145 AC 04/09 (SODIUM CHLORIDE IV 05/09 1144 1251 0.9%) Gastrointestinal Drugs Sig/Yas Start time Last Medication Dose Route Stop Time Status Admin Ondansetron HCl 4 MG Q4H PRN PRN 04/08 1800 AC (ZOFRAN) IV 05/08 1759 Hormones And Synthetic Substit Sig/Yas Start time Last Medication Dose Route Stop Time Status Admin Insulin Human Lispro 0 AC HS 04/09 0730 AC 04/09 (HUMALOG) SUBQ 05/09 0729 1258 Other Sig/Yas Start time Last Medication Dose Route Stop Time Status Admin Miscellaneous 1 EACH ASDIR 04/09 1530 CKD Information SUBQ 04/16 1529 (LOVENOX PHARMACY TO DOSE) Dose Instructions:(1)Sterile Water (WATER FOR IRRIGATION): DRESSING CHANGE Allergies:Coded Allergies:Penicillins (USE COMMENT BUTTON 03/03/23) PT STATES THAT HE WAS JUST TOLD THAT HE'S ALLERGIC TO PENICILLIN AND ITS NOT GONNA WORK FOR HIM Diagnosis, Assessment Plan Free Text DxA P NotesFree text DxA P notes:Assessment/plan:1. Acute renal failure most likely secondary to volume depletion, overdiuresis and ATN/AIN with Bactrim and lisinopril on board, stop nephrotoxic medications, hold RAJ inhibitors, start normal saline hydration, renal sono requested, urine eosinophils, urine studiesCKD baseline creatinine 1.6 back in March 2023 2. Coronary artery disease: Status post CABG, continue home medications 3. COPD: Symptomatic treatment 4. History of prostate cancer, s/p radiation 2021 Thank you very much for involving me in taking care of this patient, will followclosely.Covering for Dr. Paz at 1820 Addendum 1: 04/10/23 1426 by Monserrat Bobo MD Physical ExamGeneral appearance: alert, awake, orientedHead/eyes: atraumatic, normocephalicENT: moist mucous membranesNeck: supple/no meningismus, no JVDCardiovascular: normal heart sounds, no rubRespiratory: aerating well, clear to auscultationGenitourinary: no bladder distentionExtremities: no edemaNeuro/SALES ASSISTANT: alert, oriented X 3Ulcer: Type/cause: scab left foot. at 1427 RPT #:[id number] OF REPORTAACrneyvfoybjk1217-66-97X89:10:00G.PDOC2 [id number] for patient lzimGCSRZUJVCIRCBB4375-68-88W73:21:02 [facility] 2023-04-09 12:16:00 [id number] TeXEX3vT8vTgn/ElP0hKrkCYGKz1245-78-14U95:16:00 [facility] ([facility])Pulmonary Consultation NoteREPORT#:[id number] REPORT STATUS: SignedDATE:04/09/23 TIME: 1216 PATIENT: TEVIN NYE UNIT #: [id number]#: [id number] [address] [birth year] AGE: 73 SEX: M ATTEND: Elvie Gamboa AUTHOR: Rose Canseco * ALL edits or amendments must be made on the electronic/computer document * Rose Canseco 04/09/23 1216:History of Present Illness HPIHPI:Patient is a 73-year-old male with past medical history of CAD s/p CABG by Dr. Villeda 03/03/2028, pulmonary embolism in November 2022, prostate cancer s/p radiation 2021, former smoker with COPD on home oxygen. Patient presenting for shortness of breath. Labs and imaging obtained have been personally reviewed. At the time of my visit patient is just returning from VQ scan, brother and other family members are at bedside. Patient reports after last discharge on 03/13/2023 his breathing has progressively become worse. At the time of last discharge he was able to ambulate with oxygen and without shortness of breath. At home he has become progressively more dyspneic with exertion and has needed to increase his home O2. Patient has pulse ox at home and recently he will havedesaturations into the low 80s with exertion. Patient having dyspnea on exertion ambulating from bed to bathroom which is just a few feet away. Patienthad near syncopal episode due to severe shortness of breath and patient's brother called ambulance for transport to hospital. Patient and brother report on EMS arrival patient noted to have an irregular heart rhythm and rate. EKG done in hospital showing normal sinus rhythm. Patient denies chest pain, nausea, vomiting, increased edema, cough, orthopnea, paroxysmal nocturnal dyspnea. Past medical history:CAD s/p CABG ulmonary embolism OPDProstate cancer s/p radiation 2021HypertensionHyperlipidemiaDiabetesKnee surgeryCarotid artery stenosisCKDFormer smoker Review of systems:General: No current fevers or chills.Eyes: No recent visual change, redness, discharge.ENT: No recent hearing loss, nasal congestion, sinus problems, or sore throat.Respiratory: See HPI.Cardiovascular: No chest pain or leg edema.Gastrointestinal: No nausea vomiting or diarrhea.Genitourinary: No dysuria, urgency, or hematuria.Musculoskeletal: No arthralgias, myalgias, joint pain or swelling.Neurologic: No seizures, syncope, or focal weakness.Psychiatric: No anxiety, agitation, depression, or confusion.Skin: No rash, swelling, bruising. Physical examination:General: Awake, Alert, NAD.HEENT: NC/AT, PERRL, EOMI, No JVD, Trachea Midline. Respiratory: Diminished Breath Sounds. Symmetric to expansion. No distress.Cardiac: RRR, without murmur, rub, or gallop.Abdomen: Soft. + bowel sounds. No HSM or masses.Extremities :No Edema. No cyanosis, clubbing. Lymphatic: No palpable lymphadenopathy.Neurologic: Cranial nerves II through XII are grossly intact. Musculoskeletal: No deformity is apparent. Normal muscle bulk and tone. History - Adult longitudinalPast medical history:Reports: COPD, Diabetes mellitus, Hypertension, BPH, Dyslipidemia. Past surgical history:Reports: Knee procedure, Lung surgery (collapsed lung). Additional family history:UTOAlcohol use: Denies EtOH useDrug use: Denies recreational drugsSmoking status for patients 13 years old or older: Former SmokerAdditional social history:LIVES AT HOME ALONE. HIS YOUNGER BROTHER LIVES ACROSS THE STREET. SSH. NO STAIRS. HE WAS IND PLOF. NO DME USED . OCCASSIONAL CANE USED. NO OXYGENAllergies:Coded Allergies:Penicillins (USE COMMENT BUTTON 03/03/23) PT STATES THAT HE WAS JUST TOLD THAT HE'S ALLERGIC TO PENICILLIN AND ITS NOT GONNA WORK FOR HIM Objective Physical ExamVitals:Last Documented: Result Date Time Pulse Ox 97 04/09 1150 B/P 99/54 04/09 1150 B/P Mean 69.0 04/09 1150 O2 Delivery Nasal cannula 04/09 1150 Temp 98.1 04/09 1150 Pulse 65 04/09 1150 Resp 16 04/09 1150 O2 Flow Rate 3 04/08 2354 ResultsFindings/Data:Laboratory Tests 04/09/23 0502:[Embedded Image Not Available] 04/08/23 2030:[Embedded Image Not Available] 04/08/23 1307:[Embedded Image Not Available]Laboratory Tests 04/09 04/09 04/09 04/08 04/08 0502 0502 0453 1846 2029Chemistry Sodium (134 - 147 mEq/L) 141 141 Potassium (3.4 - 5.0 mEq/L) 4.5 4.3 Chloride (100 - 108 mEq/L) 105 105 Carbon Dioxide (21 - 33 mEq/l) 30 26 Anion Gap (0 - 20) 10 14 BUN (7 - 18 mg/dL) 47 H 47 H Creatinine (0.6 - 1.3 mg/dL) 2.9 H 3.0 H Glomerular Filtr Rate (70 - 80) 22.3 L 21.4 L Glucose (70 - 110 mg/dL) 121 H 88 POC Glucose (70 - 110 MG/DL) 121 H 119 H Calcium (8.0 - 10.5 mg/dL) 9.1 9.2 Ionized Calcium Breana (1.09 - 1.30 MMOL/L) 1.20 Magnesium (1.80 - 2.40 mg/dL) 2.06 1.66 L 04/08 1307 1307 Chemistry Sodium (134 - 147 mEq/L) 142 Potassium (3.4 - 5.0 mEq/L) 4.2 Chloride (100 - 108 mEq/L) 108 Carbon Dioxide (21 - 33 mEq/l) 26 Anion Gap (0 - 20) 13 BUN (7 - 18 mg/dL) 46 H Creatinine (0.6 - 1.3 mg/dL) 2.9 H Glomerular Filtr Rate (70 - 80) 22.3 L Glucose (70 - 110 mg/dL) 63 L POC Glucose (70 - 110 MG/DL) 84 69 L Calcium (8.0 - 10.5 mg/dL) 8.4 Total Bilirubin (0.0 - 1.0 mg/dL) 0.20 AST (15 - 37 IUnit/L) 21 ALT (30 - 65 IUnit/L) 27 L Total Alk Phosphatase (20 - 125 IUnit/L) 89 Troponin I High Sens (0 - 54 ng/L) 16 B-Natriuretic Peptide (0 - 100 PG/ML) 396.0 H Total Protein (6.4 - 8.2 g/dL) 6.2 L Albumin (3.4 - 5.0 g/dL) 2.70 L Laboratory Tests 04/08 1307 Coagulation D-Dimer (<=500 ng/mlFEU) 1496 *H Laboratory Tests 04/09 04/08 0502 1307 Hematology WBC (4.5 - 11.0 x10 3/uL) 4.8 5.7 RBC (4.00 - 5.60 x10 6/uL) 2.75 L 3.12 L Hgb (12.5 - 16.9 g/dL) 8.1 L 8.9 L Hct (37.5 - 50.7 %) 25.6 L 28.2 L MCV (81.0 - 99.0 fL) 93.1 90.4 MCH (27.0 - 33.0 pg) 29.5 28.5 MCHC (33.0 - 37.0 g/dL) 31.6 L 31.6 L RDW (11.5 - 14.5 %) 15.8 H 15.9 H Plt Count (150 - 400 x10 3/uL) 238 266 MPV (7.0 - 9.0 fL) 10.2 H 10.1 H Neut % (Auto) (56.0 - 77.0 %) 82.4 H 83.9 H Lymph % (Auto) (14.0 - 32.0 %) 7.1 L 7.5 L [place] % (Auto) (4.8 - 9.0 %) 6.5 5.6 Eos % (Auto) (0.3 - 3.7 %) 1.5 0.7 Baso % (Auto) (0.0 - 2.0 %) 0.6 0.7 Neut # (Auto) (2.0 - 7.6 x10 3/uL) 3.96 4.78 Lymph # (Auto) (1.0 - 3.8 x10 3/uL) 0.34 L 0.43 L [place] # (Auto) (0.1 - 0.8 x10 3/uL) 0.31 0.32 Eos # (Auto) (0.0 - 0.2 x10 3/uL) 0.07 0.04 Baso # (Auto) (0.0 - 0.2 x10 3/uL) 0.03 0.04 Abs Immat Gran (auto) (0.00 - 0.03 x10 3/uL) 0.09 H 0.09 H Add Manual Diff NO NO Immature Gran % (0.0 - 2.0 %) 1.9 1.6 Nucleated RBC % (0 - 0 %) 0.0 0.0 Nucleated RBCs # (Man) (0.0 - 0.1 x10 3/uL) 0.00 0.00 Laboratory Tests 04/08 1510 Urines Urine Color (YEL/STRAW) STRAW Urine Appearance (CLEAR) CLEAR Urine pH (5.0 - 7.0) 5.0 Ur Specific [place] (1.005 - 1.030) 1.006 Urine Protein (NEGATIVE) NEGATIVE Urine Glucose (UA) (NEGATIVE) NEGATIVE Urine Ketones (NEGATIVE) NEGATIVE Urine Blood (NEGATIVE) NEGATIVE Urine Nitrite (NEGATIVE) NEGATIVE Urine Bilirubin (NEGATIVE) NEGATIVE Urine Urobilinogen (0.2 - 1.0 mg/dL) 0.2 Ur Leukocyte Esterase (NEGATIVE) NEGATIVE Urine RBC (0 - 3 RBC/HPF) 0-3 Urine WBC (0 - 3 WBC/HPF) 0-3 Ur Squamous Epith Cells (NONE SEEN /HPF) NONE SEEN Urine Bacteria (NONE SEEN /HPF) NONE SEEN Urine Mucus (NONE SEEN /LPF) TRACE Radiology Data:Recent Impressions:RADIOLOGY - XR CHEST 2 V 04/08 1445 Report Impression - Status: SIGNED Entered: 04/08/2023 1534 IMPRESSION: Emphysematous changes noted in the right lower lung with prominent peribronchiolar markings noted. Impression By: Amber Valentin M.D. Diagnosis, Assessment Plan Free Text DxA P NotesFree Text DxA P Notes:Acute on chronic hypoxemic respiratory failure supplemental O2 as needed and wean as tolerated Pulmonary embolism Initially diagnosed in November 2022 at outside hospital; was on Eliquis from diagnosis through February. CTA chest 03/03/2023 was negative for pulmonary embolism. Patient was discharged home 03/13/2023 and told to discontinue taking Eliquis.-D-dimer 1496. -VQ scan with intermediate probability. 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 Check bilateral lower extremity Dopplers-Renally dose lovenox @ 1mg/kg once daily -Will likely need to be on lifelong AC COPD No exacerbation. On Combivent and ipratropium nebs at home.-May need repeat pulmonary function test outpatient. [facility] due [facility] with [facility] RLL nodule CT chest 03/03/2023. 1.5 x 0.8 cm nodular opacity in RLL needs follow-up in 3 months Coronary artery disease S/p CABG 03/04/2023 Cardiothoracic surgery following Pending echo JERAMY/CKD Nephrology consult Strict I O. Measure UOP. Follow labs History of prostate cancer S/p radiation in 2021 Thank you for the consult. Christiano Gutierrez 04/09/23 2224:Attestations Physician AttestationAgree w/findings plan:Seen and examined. I agree with the findings and plan as documented by Abbie Canseco PA-C.Discussed in depth with Abbie Canseco PA-C. at 1531 at 2230 RPT #:[id number] OF REPORTENTkbxksrarzjb4623-41-00G37:16:00G.PDOC2 [id number] for patient xwtdQHPKOUEHHXNUGC7304-09-91L48:32:17 [facility] 2023-04-09 11:56:00 [id number] TMdiGBRgwrLw7sGxpswXx/Q35yB4614-75-11X55:56:00 [facility])Podiatry Consult NoteREPORT#:[id number] REPORT STATUS: SignedDATE:04/09/23 TIME: 1156 PATIENT: TEVIN NYE UNIT #: [id number]#: [id number] [address] [birth year] AGE: 73 SEX: M ATTEND: Rojelio Magaña [facility] AUTHOR: Reyna Washington DPM * ALL edits or amendments must be made on the electronic/computer document * History - Adult longitudinalPast medical history:Reports: COPD, Diabetes mellitus, Hypertension, BPH, Dyslipidemia. Past surgical history:Reports: Knee procedure, Lung surgery (collapsed lung). Additional family history:UTOAlcohol use: Denies EtOH useDrug use: Denies recreational drugsSmoking status for patients 13 years old or older: Former SmokerAdditional social history:LIVES AT HOME ALONE. HIS YOUNGER BROTHER LIVES ACROSS THE STREET. SSH. NO STAIRS. HE WAS IND PLOF. NO DME USED . OCCASSIONAL CANE USED. NO OXYGENAllergies:Coded Allergies:Penicillins (USE COMMENT BUTTON 03/03/23) PT STATES THAT HE WAS JUST TOLD THAT HE'S ALLERGIC TO PENICILLIN AND ITS NOT GONNA WORK FOR HIM Objective GeneralVS:Last Documented: Result Date Time Pulse Ox 97 04/09 1150 B/P 99/54 04/09 1150 B/P Mean 69.0 04/09 1150 O2 Delivery Nasal cannula 04/09 1150 Temp 36.7 04/09 1150 Pulse 65 04/09 1150 Resp 16 04/09 1150 O2 Flow Rate 3 04/08 2354 PATIENT WEIGHT: Weight (lb): Weight (oz): Weight (kg): 86.200 Medications:Active Meds + DC'd Last 24 HrsAtorvastatin Calcium (LIPITOR) 40 MG 2100 PO Sodium Chloride (SODIUM CHLORIDE 0.9%) 1,000 ML .Q20H IV Aspirin (ASPIRIN) 81 MG DAILY PO Clopidogrel Bisulfate (Plavix) 75 MG DAILY PO Amlodipine Besylate (NORVASC) 10 MG DAILY PO Fluoxetine HCl (PROzac) 10 MG QAM PO Insulin Human Lispro (HUMALOG) 0 AC HS SUBQ Albuterol/Ipratropium (DUONEB) 3 ML RTQ4H NEB Metoprolol Tartrate (LOPRESSOR) 25 MG Q12HR PO Tamsulosin HCl (Flomax 0.4 mg) 0.8 MG BEDTIME PO Magnesium Sulfate (MAGNESIUM SULFATE 2GM/SWFI 50ML) 50 ML ONCE ONE IV (DC) Acetaminophen (TYLENOL) 650 MG Q4H PRN PRN PO Hydrocodone Bitart/Acetaminophen (NORCO 5/325) 1 TAB Q4H PRN PRN PO Morphine Sulfate (morphine SULFATE) 4 MG Q4H PRN PRN IV Ondansetron HCl (ZOFRAN) 4 MG Q4H PRN PRN IV I O:24 hour I O ending at 0700: 02 0700 04/08 1900 Intake Total 750.00 Output Total 1100 Balance -350.00 Intake, IV 50.00 Intake, Oral 700 Number 0 Bowel Movements Number Voids 1 Output, Urine 1100 Patient 86.2 kg Weight Weight Bed scale Measurement Method Dietitian nutrition assessmentThe data set between the solid lines has been imported from the dietitian's assessment. BMI Calculated: 29.8Nutrition related diagnosis: Nutrition diagnosis details: Nutrition problem: Nutrition etiology: Nutrition signs and symptoms: Nutrition prescription: Dietitian name: Assessment completed: ResultsFindings/Data:Laboratory Tests: 04/09 04/09 04/08 04/08 04/08 0502 0453 9466 1575 6Chemistry Sodium (134 - 147 mEq/L) 141 141 Potassium (3.4 - 5.0 mEq/L) 4.5 4.3 Chloride (100 - 108 mEq/L) 105 105 Carbon Dioxide (21 - 33 mEq/l) 30 26 Anion Gap (0 - 20) 10 14 BUN (7 - 18 mg/dL) 47 H 47 H Creatinine (0.6 - 1.3 mg/dL) 2.9 H 3.0 H Glomerular Filtr Rate (70 - 80) 22.3 L 21.4 L Glucose (70 - 110 mg/dL) 121 H 88 POC Glucose (70 - 110 MG/DL) 121 H 119 H 84 Calcium (8.0 - 10.5 mg/dL) 9.1 9.2 Ionized Calcium [place] (1.09 - 1.30 MMOL/L) 1.20 Magnesium (1.80 - 2.40 mg/dL) 1.66 LHematology WBC (4.5 - 11.0 x10 3/uL) 4.8 RBC (4.00 - 5.60 x10 6/uL) 2.75 L Hgb (12.5 - 16.9 g/dL) 8.1 L Hct (37.5 - 50.7 %) 25.6 L MCV (81.0 - 99.0 fL) 93.1 MCH (27.0 - 33.0 pg) 29.5 MCHC (33.0 - 37.0 g/dL) 31.6 L RDW (11.5 - 14.5 %) 15.8 H Plt Count (150 - 400 x10 3/uL) 238 MPV (7.0 - 9.0 fL) 10.2 H Neut % (Auto) (56.0 - 77.0 %) 82.4 H Lymph % (Auto) (14.0 - 32.0 %) 7.1 L [place] % (Auto) (4.8 - 9.0 %) 6.5 Eos % (Auto) (0.3 - 3.7 %) 1.5 Baso % (Auto) (0.0 - 2.0 %) 0.6 Neut # (Auto) (2.0 - 7.6 x10 3/uL) 3.96 Lymph # (Auto) (1.0 - 3.8 x10 3/uL) 0.34 L [place] # (Auto) (0.1 - 0.8 x10 3/uL) 0.31 Eos # (Auto) (0.0 - 0.2 x10 3/uL) 0.07 Baso # (Auto) (0.0 - 0.2 x10 3/uL) 0.03 Abs Immat Gran (auto) (0.00 - 0.03 0.09 Hx10 3/uL) Add Manual Diff NO Immature Gran % (0.0 - 2.0 %) 1.9 Nucleated RBC % (0 - 0 %) 0.0 Nucleated RBCs # (Man) (0.0 - 0.1 0.00x10 3/uL) 04/08 1510 1307 1307Chemistry Sodium (134 - 147 mEq/L) 142 Potassium (3.4 - 5.0 mEq/L) 4.2 Chloride (100 - 108 mEq/L) 108 Carbon Dioxide (21 - 33 mEq/l) 26 Anion Gap (0 - 20) 13 BUN (7 - 18 mg/dL) 46 H Creatinine (0.6 - 1.3 mg/dL) 2.9 H Glomerular Filtr Rate (70 - 80) 22.3 L Glucose (70 - 110 mg/dL) 63 L POC Glucose (70 - 110 MG/DL) 69 L Calcium (8.0 - 10.5 mg/dL) 8.4 Total Bilirubin (0.0 - 1.0 mg/dL) 0.20 AST (15 - 37 IUnit/L) 21 ALT (30 - 65 IUnit/L) 27 L Total Alk Phosphatase (20 - 125 IUnit/L) 89 Troponin I High Sens (0 - 54 ng/L) 16 B-Natriuretic Peptide (0 - 100 PG/ML) 396.0 H Total Protein (6.4 - 8.2 g/dL) 6.2 L Albumin (3.4 - 5.0 g/dL) 2.70 LCoagulation D-Dimer (<=500 ng/mlFEU) 1496 *HHematology WBC (4.5 - 11.0 x10 3/uL) 5.7 RBC (4.00 - 5.60 x10 6/uL) 3.12 L Hgb (12.5 - 16.9 g/dL) 8.9 L Hct (37.5 - 50.7 %) 28.2 L MCV (81.0 - 99.0 fL) 90.4 MCH (27.0 - 33.0 pg) 28.5 MCHC (33.0 - 37.0 g/dL) 31.6 L RDW (11.5 - 14.5 %) 15.9 H Plt Count (150 - 400 x10 3/uL) 266 MPV (7.0 - 9.0 fL) 10.1 H Neut % (Auto) (56.0 - 77.0 %) 83.9 H Lymph % (Auto) (14.0 - 32.0 %) 7.5 L [place] % (Auto) (4.8 - 9.0 %) 5.6 Eos % (Auto) (0.3 - 3.7 %) 0.7 Baso % (Auto) (0.0 - 2.0 %) 0.7 Neut # (Auto) (2.0 - 7.6 x10 3/uL) 4.78 Lymph # (Auto) (1.0 - 3.8 x10 3/uL) 0.43 L [place] # (Auto) (0.1 - 0.8 x10 3/uL) 0.32 Eos # (Auto) (0.0 - 0.2 x10 3/uL) 0.04 Baso # (Auto) (0.0 - 0.2 x10 3/uL) 0.04 Abs Immat Gran (auto) (0.00 - 0.03 0.09 Hx10 3/uL) Add Manual Diff NO Immature Gran % (0.0 - 2.0 %) 1.6 Nucleated RBC % (0 - 0 %) 0.0 Nucleated RBCs # (Man) (0.0 - 0.1 0.00x10 3/uL)Urines Urine Color (YEL/STRAW) STRAW Urine Appearance (CLEAR) CLEAR Urine pH (5.0 - 7.0) 5.0 Ur Specific [place] (1.005 - 1.030) 1.006 Urine Protein (NEGATIVE) NEGATIVE Urine Glucose (UA) (NEGATIVE) NEGATIVE Urine Ketones (NEGATIVE) NEGATIVE Urine Blood (NEGATIVE) NEGATIVE Urine Nitrite (NEGATIVE) NEGATIVE Urine Bilirubin (NEGATIVE) NEGATIVE Urine Urobilinogen (0.2 - 1.0 mg/dL) 0.2 Ur Leukocyte Esterase (NEGATIVE) NEGATIVE Urine RBC (0 - 3 RBC/HPF) 0-3 Urine WBC (0 - 3 WBC/HPF) 0-3 Ur Squamous Epith Cells (NONE SEEN /HPF) NONE SEEN Urine Bacteria (NONE SEEN /HPF) NONE SEEN Urine Mucus (NONE SEEN /LPF) TRACE Recent Impressions:RADIOLOGY - XR CHEST 2 V 04/08 1445 Report Impression - Status: SIGNED Entered: 04/08/2023 1534 IMPRESSION: Emphysematous changes noted in the right lower lung with prominent peribronchiolar markings noted. Impression By: Amber Valentin M.D. Results: labs reviewed at 1034 RPT #:[id number] OF REPORTYYYlaoohfupxzr7018-19-65V67:56:00G.PDOC2 [id number] for patient ngwbHJHNAKMSBBZBJR5007-88-49Z09:34:45 [facility] 2023-04-09 10:02:00 [id number]k fKhS6b0PSE8Pl8gXK9O24XbIkyX8157-70-49E89:02:00 [facility] ([facility])Cardiology ConsultationREPORT#:[id number] REPORT STATUS: SignedDATE:04/09/23 TIME: 1002 PATIENT: TEVIN NYE UNIT #: [id number]#: [id number] [address] [birth year] AGE: 73 SEX: M ATTEND: Elvie Gamboa [facility] AUTHOR: Daniela Mari AGACNP * ALL edits or amendments must be made on the electronic/computer document * See AddendumHistory of Present Illness HPIRequesting Clinician: Dr. Villeda/Evon Tirado for consult:SOBChinella complaint:Weakness, diaphoresis, presyncopePCP:PCP: Samuel Mcguire MD HPI:73 YO male with MHx of CAD s/p CABG less than 1 month ago, COPD, PE. He presentswith generalized weakness and near syncope. Per family the patient was progressively getting weak since being discharged from the hospital post CABG. Yesterday he was noticed to be really weak. The patient remarked he felt he was going to pass out. Other symptoms reported includes SOB, anorexia, LE edema, wound on the dorsum of the right foot. Creatinine elevated at 3, it was 1.6 when he was discharged few weeks ago. D-dimer elevated 1496. He has abnormal pedal pulses. 1. Dyspnea and presyncope - rule out PE* Hx of PE, elevated D-dimer* Unable to CTA due to elevated creatinine, will do VQ scan to rule out PE* pulmonary is also consulted* echocardiogram 2. CAD s/p CABG* start back on Plavix and ASA* continue BB if BP allows it* continue statin 3. JERAMY on CKD* appear volume depleted on exam* creatinine 3 down to 2.9, it was 1.6 when he was discharge 2 weeks ago* hold lisinopril* nephrology consultation* start IVF NS 50 ml/hr 4. Right foot ulcer/abnormal pedal pulses* arterial and venous doppler to R/O DVT and occlusive PAD* podiatry consultation 5. Hx of COPD* pulmonary consulted* pulmonary consultation Appreciate the referral. MDM by Dr. Haynes. History - Adult longitudinalPast medical history:Reports: COPD, Diabetes mellitus, Hypertension, BPH, Dyslipidemia. Past surgical history:Reports: Knee procedure, Lung surgery (collapsed lung). Additional family history:UTOAlcohol use: Denies EtOH useDrug use: Denies recreational drugsSmoking status for patients 13 years old or older: Former SmokerAdditional social history:LIVES AT HOME ALONE. HIS YOUNGER BROTHER LIVES ACROSS THE STRE[address]. SSH. NO STAIRS. HE WAS IND PLOF. NO DME USED . OCCASSIONAL CANE USED. NO OXYGENAllergies:Coded Allergies:Penicillins (USE COMMENT BUTTON 03/03/23) PT STATES THAT HE WAS JUST TOLD THAT HE'S ALLERGIC TO PENICILLIN AND ITS NOT GONNA WORK FOR HIM Objective GeneralVS/I O:Vital Signs: Date Time Temp Pulse Resp B/P B/P Pulse O2 O2 Flow FiO2 Mean Ox Delivery Rate 04/09 0706 36.6 67 16 96/50 65.3 96 Room air 04/09 0330 36.7 65 18 103/58 73.1 97 04/08 2354 97 Nasal 3 cannula 04/08 2319 36.4 42 18 118/56 77.0 97 04/08 2016 Nasal 3 cannula 04/08 2001 36.6 84 17 117/61 79.8 95 04/08 1834 Nasal 2 cannula 04/08 1800 80 120/56 81 96 04/08 1706 Nasal cannula 04/08 1700 77 16 106/54 76 96 04/08 1600 72 19 134/62 89 97 04/08 1515 Nasal 2 cannula 04/08 1501 72 18 129/60 86 97 04/08 1400 71 15 115/56 79 100 04/08 1344 Nasal 2 cannula 04/08 1303 75 15 120/57 82 04/08 1251 36.5 75 17 120/57 78 97 Nasal 2 cannula 24 hour I O ending at 0700: 04/09 0700 04/08 1900 Intake Total 750.00 Output Total 1100 Balance -350.00 Intake, IV 50.00 Intake, Oral 700 Number 0 Bowel Movements Number Voids 1 Output, Urine 1100 Patient 86.2 kg Weight Weight Bed scale Measurement Method PATIENT WEIGHT: Weight (lb): Weight (oz): Weight (kg): 86.200 Medications:Active Meds + DC'd Last 24 HrsAtorvastatin Calcium (LIPITOR) 40 MG 2100 PO Amlodipine Besylate (NORVASC) 10 MG DAILY PO Fluoxetine HCl (PROzac) 10 MG QAM PO Insulin Human Lispro (HUMALOG) 0 AC HS SUBQ Albuterol/Ipratropium (DUONEB) 3 ML RTQ4H NEB Metoprolol Tartrate (LOPRESSOR) 25 MG Q12HR PO Tamsulosin HCl (Flomax 0.4 mg) 0.8 MG BEDTIME PO Magnesium Sulfate (MAGNESIUM SULFATE 2GM/SWFI 50ML) 50 ML ONCE ONE IV (DC) Acetaminophen (TYLENOL) 650 MG Q4H PRN PRN PO Hydrocodone Bitart/Acetaminophen (NORCO 5/325) 1 TAB Q4H PRN PRN PO Morphine Sulfate (morphine SULFATE) 4 MG Q4H PRN PRN IV Ondansetron HCl (ZOFRAN) 4 MG Q4H PRN PRN IV ResultsFindings/Data:Laboratory Tests 04/09 04/09 04/08 04/08 04/08 0502 8628 7987 8500 7Dhemistry Sodium (134 - 147 mEq/L) 141 141 Potassium (3.4 - 5.0 mEq/L) 4.5 4.3 Chloride (100 - 108 mEq/L) 105 105 Carbon Dioxide (21 - 33 mEq/l) 30 26 Anion Gap (0 - 20) 10 14 BUN (7 - 18 mg/dL) 47 H 47 H Creatinine (0.6 - 1.3 mg/dL) 2.9 H 3.0 H Glomerular Filtr Rate (70 - 80) 22.3 L 21.4 L Glucose (70 - 110 mg/dL) 121 H 88 POC Glucose (70 - 110 MG/DL) 121 H 119 H 84 Calcium (8.0 - 10.5 mg/dL) 9.1 9.2 Ionized Calcium [place] (1.09 - 1.30 MMOL/L) 1.20 Magnesium (1.80 - 2.40 mg/dL) 1.66 L 04/08 1307 1307 Chemistry Sodium (134 - 147 mEq/L) 142 Potassium (3.4 - 5.0 mEq/L) 4.2 Chloride (100 - 108 mEq/L) 108 Carbon Dioxide (21 - 33 mEq/l) 26 Anion Gap (0 - 20) 13 BUN (7 - 18 mg/dL) 46 H Creatinine (0.6 - 1.3 mg/dL) 2.9 H Glomerular Filtr Rate (70 - 80) 22.3 L Glucose (70 - 110 mg/dL) 63 L POC Glucose (70 - 110 MG/DL) 69 L Calcium (8.0 - 10.5 mg/dL) 8.4 Total Bilirubin (0.0 - 1.0 mg/dL) 0.20 AST (15 - 37 IUnit/L) 21 ALT (30 - 65 IUnit/L) 27 L Total Alk Phosphatase (20 - 125 IUnit/L) 89 Troponin I High Sens (0 - 54 ng/L) 16 B-Natriuretic Peptide (0 - 100 PG/ML) 396.0 H Total Protein (6.4 - 8.2 g/dL) 6.2 L Albumin (3.4 - 5.0 g/dL) 2.70 L Laboratory Tests 04/08 1307 Coagulation D-Dimer (<=500 ng/mlFEU) 1496 *H Laboratory Tests 04/09 04/08 0502 1307 Hematology WBC (4.5 - 11.0 x10 3/uL) 4.8 5.7 RBC (4.00 - 5.60 x10 6/uL) 2.75 L 3.12 L Hgb (12.5 - 16.9 g/dL) 8.1 L 8.9 L Hct (37.5 - 50.7 %) 25.6 L 28.2 L MCV (81.0 - 99.0 fL) 93.1 90.4 MCH (27.0 - 33.0 pg) 29.5 28.5 MCHC (33.0 - 37.0 g/dL) 31.6 L 31.6 L RDW (11.5 - 14.5 %) 15.8 H 15.9 H Plt Count (150 - 400 x10 3/uL) 238 266 MPV (7.0 - 9.0 fL) 10.2 H 10.1 H Neut % (Auto) (56.0 - 77.0 %) 82.4 H 83.9 H Lymph % (Auto) (14.0 - 32.0 %) 7.1 L 7.5 L [place] % (Auto) (4.8 - 9.0 %) 6.5 5.6 Eos % (Auto) (0.3 - 3.7 %) 1.5 0.7 Baso % (Auto) (0.0 - 2.0 %) 0.6 0.7 Neut # (Auto) (2.0 - 7.6 x10 3/uL) 3.96 4.78 Lymph # (Auto) (1.0 - 3.8 x10 3/uL) 0.34 L 0.43 L [place] # (Auto) (0.1 - 0.8 x10 3/uL) 0.31 0.32 Eos # (Auto) (0.0 - 0.2 x10 3/uL) 0.07 0.04 Baso # (Auto) (0.0 - 0.2 x10 3/uL) 0.03 0.04 Abs Immat Gran (auto) (0.00 - 0.03 x10 3/uL) 0.09 H 0.09 H Add Manual Diff NO NO Immature Gran % (0.0 - 2.0 %) 1.9 1.6 Nucleated RBC % (0 - 0 %) 0.0 0.0 Nucleated RBCs # (Man) (0.0 - 0.1 x10 3/uL) 0.00 0.00 Laboratory Tests 04/08 1510 Urines Urine Color (YEL/STRAW) STRAW Urine Appearance (CLEAR) CLEAR Urine pH (5.0 - 7.0) 5.0 Ur Specific [place] (1.005 - 1.030) 1.006 Urine Protein (NEGATIVE) NEGATIVE Urine Glucose (UA) (NEGATIVE) NEGATIVE Urine Ketones (NEGATIVE) NEGATIVE Urine Blood (NEGATIVE) NEGATIVE Urine Nitrite (NEGATIVE) NEGATIVE Urine Bilirubin (NEGATIVE) NEGATIVE Urine Urobilinogen (0.2 - 1.0 mg/dL) 0.2 Ur Leukocyte Esterase (NEGATIVE) NEGATIVE Urine RBC (0 - 3 RBC/HPF) 0-3 Urine WBC (0 - 3 WBC/HPF) 0-3 Ur Squamous Epith Cells (NONE SEEN /HPF) NONE SEEN Urine Bacteria (NONE SEEN /HPF) NONE SEEN Urine Mucus (NONE SEEN /LPF) TRACE Laboratory Tests 04/08 04/08 2030 1307 Chemistry Magnesium (1.80 - 2.40 mg/dL) 1.66 L B-Natriuretic Peptide (0 - 100 PG/ML) 396.0 H Radiology Data:Recent Impressions:RADIOLOGY - XR CHEST 2 V 04/08 1445 Report Impression - Status: SIGNED Entered: 04/08/2023 8054 IMPRESSION: Emphysematous changes noted in the right lower lung with prominent peribronchiolar markings noted. Impression By: Walker GarciaD. at 1322 at 1653 Addendum 1: 04/10/23 1759 by Daniela Mari Correction, patient has left foot ulcer, not right foot ulcer. at 1800 RPT #:[id number] OF REPORTKXPmefktjdhdhm8449-72-98H51:02:00G.PDOC2 [id number] for patient tpzaSXIQZFVVUBAUXA9214-23-90C76:22:57 [facility] 2023-04-09 05:32:00 [id number] CTdRnUBeBFUycQGyJkFu88aDH1x4490-98-79Z61:32:00 [facility])Cardiothoracic Surgery ProgREPORT#:[id number] REPORT STATUS: SignedDATE:04/09/23 TIME: 0532 PATIENT: TEVIN NYE UNIT #: [id number]#: [id number] [address] [birth year] AGE: 73 SEX: M ATTEND: Elvie Gamboa [facility] AUTHOR: Evon Andrew Physic * ALL edits or amendments must be made on the electronic/computer document * GeneralStatus post: 3CABG x 4 (MCCORMICK-LAD,SVG-Renea, SVG-OM, SVG-PDA SubjectiveChief complaint:Resting comfortable. Review of SystemsConstitutional:Denies: fever, generalized weakness. Respiratory:Reports: SOB. Cardiovascular:Reports: [place] (dyspnea on exertion). Denies: chest pain, edema. GI:Denies: constipation, diarrhea. Musculoskeletal:Denies: joint pain, joint swelling. Heme:Denies: bleeding, bruising. Endocrine:Denies: polydipsia, polyuria. Neuro:Denies: dizziness. Psych:Denies: agitation, anxiety. Objective GeneralVS/I OLast Documented: Result Date Time Pulse Ox 97 04/09 330 B/P 103/58 04/09 330 B/P Mean 73.1 04/09 330 Temp 98.1 04/09 330 Pulse 65 04/09 033 Resp 18 04/09 330 O2 Delivery Nasal cannula 04/08 2354 O2 Flow Rate 3 04/08 2354 24 hour I O ending at 0700: 04/09 0700 04/08 1900 Intake Total 250 Output Total 500 Balance -250 Intake, Oral 250 Number Voids 1 Output, Urine 500 Patient 86.2 kg Weight Weight Bed scale Measurement Method PATIENT WEIGHT: Weight (lb): Weight (oz): Weight (kg): 86.200 Physical ExamGeneral appearance: alert, awake, orientedHEENT: mucosal membranes moistCardiovascular: regular rate rhythmRespiratory: aerating well, clear to auscultationAbdomen: soft, non-tenderExtremities: dry, moves allMusculoskeletal: full range of motionNeuro/SALES ASSISTANT: alert, oriented X 3Skin: dry, intact Diagnosis, Assessment PlanHospital course to date:This is a 73-year-old gentleman with past medical history of coronary artery disease status post coronary artery bypass graft surgery on 3CABG x 4 (MCCORMICK-LAD,SVG-Renea, SVG-OM, SVG-PDA) Patient was DC'd home on 03/13/2023. He was DC'd home on home oxygen for findingsconsistent with COPD. The patient reports over the past few weeks he has experienced increased shortness of breath with exertion.The patient denies any lower extremity edema and in fact reports his lower extremity edema has slightly improved since his hospital stay. The patient presented to hospital on [facility] for evaluation of shortness ofbreath. During his hospitalization for coronary bypass graft surgery the patient's creatinine wero to 3 and came down to baseline of 1.6.His admission creatinine today 2.9 The patient denies any chest pains, denies any palpitations. Assessment/plan1. Coronary artery disease Status post coronary bypass graft surgery . CKD Consult renal3. COPD4. Shortness of breath Sternal wound is clean and dry. There is no signs of infection. Sternum is stable.Left leg wound graft site also clean and dry no signs of infection We will obtain echocardiogram, cardiac consultation and renal consultation.Continue daily labsDaily chest x-rayWe will continue to follow 04/09/23Patient resting comfortableON 2 L NCLabs reviewedElevated Creatine. Nephrology consulted.Awaiting echo-Cardiology consulted. COPD, will consult pulmonaryPatient was seen and examined by Dr. Villeda. Continue supportive care at 0721 at 1005 RPT #:[id number] OF REPORTPRProgress [id number]:32:00G.[id number] able for patient mgmjVDSFAOMBDAINKE3937-05-71L31:21:26 [facility] 2023-04-08 20:36:00 [id number]/[id number]/D3C fGqVTJ+sj8kCE5WPjeA1HgVH48P3138-28-08Z82:36:58202 2-[address] [address] PATIENT NAME: TEVIN NYE ADMIT DATE: 04/08/23ACCOUNT NO: [id number] ROOM NO: [facility] AGE: 73 REPORT TYPE: eELECTROCARDIOGRAM REPORT SEX: M ADMITTING PHYSICIAN:Elvie Gamboa MD ATTENDING PHYSICIAN:Elvie Gamboa MD Order:[id number] Reason : RAPID Test Date/Time Stamp:FriApr 08 2023 20:36:36Blood Pressure : / mmHGVent. Rate : 086 BPM Atrial Rate : 086 BPM P-R Int : 154 ms QRS Dur : 090 ms QT Int : 396 ms P-R-T Axes : 065 -65 085 degrees QTc Int : 473 ms Sinus rhythm with frequent premature ventricular complexesLeft axis deviationSeptal infarct , age undeterminedAbnormal ECGWhen compared with ECG of 06-MAR-2023 01:03,No changesConfirmed by MD SYLVESTER GERARD ([id number]) on 04/09/2023 7:03:25 AM Referred By: Self Referred Confirmed by:ANUJ SYLVESTER MD at 0703 PATIENT NAME: TEVIN NYE .[id number] AVAvailable for patient [id number]:03:54 [facility] 2023-04-08 17:55:00 [id number] /[id number] [id number]:55:00 [facility] History PhysicalREPORT#:[id number] REPORT STATUS: SignedDATE:04/08/23 TIME: 1755 PATIENT: TEVIN NYE UNIT #: [id number]#: [id number] [address] AGE: 73 SEX: M ATTEND: Elvie Gamboa MDADM AUTHOR: Elvie Gamboa MD * ALL edits or amendments must be made on the electronic/computer document * History of Present Illness HPIChief complaint:SOBPCP:PCP: Samuel Mcguire MD HPI:Patient is a 73-year-old male with past medical history of CAD s/p CABG by Dr. Villeda 03/03/2028, pulmonary embolism in November 2022, prostate cancer s/p radiation 2021, former smoker with COPD on home oxygen. Patient presenting for shortness of breath. no fevers, chills or sweats. no other comPatient is a 73-year-old male with past medical history of CAD s/p CABG by Dr. Villeda 03/03/2028, pulmonary embolism in November 2022, prostate cancer s/p radiation 2021, former smoker with COPD on home oxygen. Patient presenting for shortness of breath. No other complaints. History Past Medical Surgical HxAdditional medical history:CAD s/p CABG ulmonary embolism OPDProstate cancer s/p radiation 2021HypertensionHyperlipidemiaDiabetesKnee surgeryCarotid artery stenosisCKDAdditional surgical history:knee surgery Family HistoryAdditional family history:none Social HistoryAlcohol use: Denies EtOH useDrug use: Denies recreational drugsSmoking status for patients 13 years old or older: Former SmokerAdditional social history:LIVES AT HOME ALONE. HIS YOUNGER BROTHER LIVES ACROSS THE STREET. SSH. NO STAIRS. HE WAS IND PLOF. NO DME USED . OCCASSIONAL CANE USED. NO OXYGEN Medication/Allergy-Vaccine HxAllergies:Coded Allergies:Penicillins (USE COMMENT BUTTON 03/03/23) PT STATES THAT HE WAS JUST TOLD THAT HE'S ALLERGIC TO PENICILLIN AND ITS NOT GONNA WORK FOR HIM Review of SystemsAll systems rev neg: except as noted (in the history note) OBJECTIVEVS/I O:Vital Signs Date Temp Pulse Resp B/P B/P Mean Pulse Ox FiO2 04/08 97.7 71-77 15-19 106-134/54-62 76-89 96-100 Last Documented: Result Date Time O2 Delivery Nasal cannula 04/08 1706 Pulse Ox 96 08/ 1700 B/P 106/54 08/ 1700 B/P Mean 76 / 1700 Pulse 77 / 1700 Resp 16 04/08 1700 O2 Flow Rate 2 04/08 1515 Temp 97.7 04/08 1251 Patient Weight and BMI Weight (kg): 86.200 BMI: 29.8 Medications:Active Meds + DC'd Last 24 HrsAcetaminophen (TYLENOL) 650 MG Q4H PRN PRN PO (UNV) Hydrocodone Bitart/Acetaminophen (NORCO 5/325) 1 TAB Q4H PRN PRN PO (UNV) Morphine Sulfate (morphine SULFATE) 4 MG Q4H PRN PRN IV (UNV) Ondansetron HCl (ZOFRAN) 4 MG Q4H PRN PRN IV (UNV) General appearance: alert, awake, orientedHead/Eyes: atraumatic, clear cornea, EOMINeck: supple/no meningismusCardiovascular: normal heart sounds, regular rate rhythm, no gallop, no murmur, no rubRespiratory: aerating well, clear to auscultation, symmetric expansionAbdomen: non-tender, normal bowel sounds, soft, no distentionExtremities: no clubbing, no cyanosis, no edemaMusculoskeletal: normal inspection, painless range of motionNeuro/SALES ASSISTANT: alert, oriented X 3, CNII-XII intactSkin: dry, intact ResultsFindings/Data:Laboratory Tests: 04/08 04/08 04/08 1510 1307 1307 Chemistry Sodium (134 - 147 mEq/L) 142 Potassium (3.4 - 5.0 mEq/L) 4.2 Chloride (100 - 108 mEq/L) 108 Carbon Dioxide (21 - 33 mEq/l) 26 Anion Gap (0 - 20) 13 BUN (7 - 18 mg/dL) 46 H Creatinine (0.6 - 1.3 mg/dL) 2.9 H Glomerular Filtr Rate (70 - 80) 22.3 L Glucose (70 - 110 mg/dL) 63 L Calcium (8.0 - 10.5 mg/dL) 8.4 Total Bilirubin (0.0 - 1.0 mg/dL) 0.20 AST (15 - 37 IUnit/L) 21 ALT (30 - 65 IUnit/L) 27 L Total Alk Phosphatase (20 - 125 IUnit/L) 89 Troponin I High Sens (0 - 54 ng/L) 16 B-Natriuretic Peptide (0 - 100 PG/ML) 396.0 H Total Protein (6.4 - 8.2 g/dL) 6.2 L Albumin (3.4 - 5.0 g/dL) 2.70 L Coagulation D-Dimer (<=500 ng/mlFEU) 1496 *H Hematology WBC (4.5 - 11.0 x10 3/uL) 5.7 RBC (4.00 - 5.60 x10 6/uL) 3.12 L Hgb (12.5 - 16.9 g/dL) 8.9 L Hct (37.5 - 50.7 %) 28.2 L MCV (81.0 - 99.0 fL) 90.4 MCH (27.0 - 33.0 pg) 28.5 MCHC (33.0 - 37.0 g/dL) 31.6 L RDW (11.5 - 14.5 %) 15.9 H Plt Count (150 - 400 x10 3/uL) 266 MPV (7.0 - 9.0 fL) 10.1 H Neut % (Auto) (56.0 - 77.0 %) 83.9 H Lymph % (Auto) (14.0 - 32.0 %) 7.5 L [place] % (Auto) (4.8 - 9.0 %) 5.6 Eos % (Auto) (0.3 - 3.7 %) 0.7 Baso % (Auto) (0.0 - 2.0 %) 0.7 Neut # (Auto) (2.0 - 7.6 x10 3/uL) 4.78 Lymph # (Auto) (1.0 - 3.8 x10 3/uL) 0.43 L [place] # (Auto) (0.1 - 0.8 x10 3/uL) 0.32 Eos # (Auto) (0.0 - 0.2 x10 3/uL) 0.04 Baso # (Auto) (0.0 - 0.2 x10 3/uL) 0.04 Abs Immat Gran (auto) (0.00 - 0.03 x10 3/uL) 0.09 H Add Manual Diff NO Immature Gran % (0.0 - 2.0 %) 1.6 Nucleated RBC % (0 - 0 %) 0.0 Nucleated RBCs # (Man) (0.0 - 0.1 x10 3/uL) 0.00 Urines Urine Color (YEL/STRAW) STRAW Urine Appearance (CLEAR) CLEAR Urine pH (5.0 - 7.0) 5.0 Ur Specific [place] (1.005 - 1.030) 1.006 Urine Protein (NEGATIVE) NEGATIVE Urine Glucose (UA) (NEGATIVE) NEGATIVE Urine Ketones (NEGATIVE) NEGATIVE Urine Blood (NEGATIVE) NEGATIVE Urine Nitrite (NEGATIVE) NEGATIVE Urine Bilirubin (NEGATIVE) NEGATIVE Urine Urobilinogen (0.2 - 1.0 mg/dL) 0.2 Ur Leukocyte Esterase (NEGATIVE) NEGATIVE Urine RBC (0 - 3 RBC/HPF) 0-3 Urine WBC (0 - 3 WBC/HPF) 0-3 Ur Squamous Epith Cells (NONE SEEN /HPF) NONE SEEN Urine Bacteria (NONE SEEN /HPF) NONE SEEN Urine Mucus (NONE SEEN /LPF) TRACE Laboratory Tests 04/08/23 1307:[Embedded Image Not Available] Diagnosis, Assessment PlanFree Text A P:SOBconsult cardiology and consult pulmonaryon 5 liters of oxygen per n/cwean to home oxygen which is about 2-3 litersecho ordered elevated D-dimercannot get CTA as elevated Creatwill get V-Q scan JERAMY with CKDconsult renalplaced on IVF COPDon home oxygen h/o CADs/p CABG X4 on 03/04/2023TS consulted DMaccuchecks and SSI prncheck A1C HTNbp controlledresumed home meds HLDon statinstable Prostate cancers/p XRT follow labs at 1049 RPT #:[id number] OF REPORTHPHistory and physical ijcffytgybg1454-99-00B84:55:00G.[id number] AVAvailable for patient ldjiLCOSXWBPXNQYYR7510-55-39C31:49:55 [facility] 2023-04-08 16:57:00 [id number] O+5lRlfGe6PoDNU8K4PhMyddWf5U6 4gmDZy/maOlG0iHvsBMULfBgaJZ4332-66-94R83:57:00 [facility])Cardiothoracic Surgery ConsultREPORT#:[id number] REPORT STATUS: SignedDATE:04/08/23 TIME: 1656 PATIENT: TEVIN NYE UNIT #: [id number]#: [id number] [address] AGE: 73 SEX: M ATTEND: Elvie Gamboa [facility] AUTHOR: Evon Andrew Physic * ALL edits or amendments must be made on the electronic/computer document * Evon Andrew 04/08/23 165:History of Present Illness HPIHPI:This is a 73-year-old gentleman with past medical history of coronary artery disease status post coronary artery bypass graft surgery on 6/27/2023CABG x 4 (MCCORMICK-LAD,SVG-Renea, SVG-OM, SVG-PDA) Patient was DC'd home on 03/13/2023. He was DC'd home on home oxygen for findingsconsistent with COPD. The patient reports over the past few weeks he has experienced increased shortness of breath with exertion.The patient denies any lower extremity edema and in fact reports his lower extremity edema has slightly improved since his hospital stay. The patient presented to hospital on [facility] for evaluation of shortness ofbreath. During his hospitalization for coronary bypass graft surgery the patient's creatinine wero to 3 and came down to baseline of 1.6.His admission creatinine today 2.9 The patient denies any chest pains, denies any palpitations. HistoryPast Medical History:Reports: COPD, Diabetes mellitus, Hypertension, BPH, Dyslipidemia. Past Surgical History:Reports: Knee procedure, Lung surgery (collapsed lung). Alcohol Use Denies EtOH useDrug Use Denies recreational drugsSmoking status for patients 13 years old or older: Former SmokerAdditional Social History:LIVES AT HOME ALONE. HIS YOUNGER BROTHER LIVES ACROSS THE ST[address]. [place]. NO STAIRS. HE WAS IND PLOF. NO DME USED . OCCASSIONAL CANE USED. NO OXYGENAllergies:Coded Allergies:Penicillins (USE COMMENT BUTTON 03/03/23) PT STATES THAT HE WAS JUST TOLD THAT HE'S ALLERGIC TO PENICILLIN AND ITS NOT GONNA WORK FOR HIM Review of Systems Free Text ROS NotesFree Text ROS Notes:Constitutional: Negative for fever, chills, weight loss Skin: Negative for rash, negative for swelling negative for any laceration HEENT: Denies hearing loss denies any ear ringing Respiratory: Dyspnea on exertionCardiac: Denies chest pain, denies palpitations denies orthopnea GI: Denies constipation denies diarrhea : Denies hematuria denies dysuria denies flank pain Musculoskeletal: Denies any joint pain denies any joint swelling denies any myalgia Hematologic: Denies any easy bruising, denies any bleeding Endocrine: denies any night sweats, denies polyuria polydipsia Neurologic: Denies any lightheaded denies any headache denies any confusion denies any dizziness Objective Physical ExamVS/I O:Last Documented: Result Date Time O2 Delivery Nasal cannula 04/08 1515 O2 Flow Rate 2 04/08 1515 Pulse Ox 97 04/08 1501 B/P 129/60 04/08 1501 B/P Mean 86 04/08 1501 Pulse 72 04/08 1501 Resp 18 04/08 1501 Temp 97.7 04/08 1251 PATIENT WEIGHT: Weight (lb): Weight (oz): Weight (kg): 86.200 General appearance: alert, awake, oriented Free Text Obj NotesFree Text Obj Notes:General: well nourished, well groomed, no acute distress. HEENT: conjunctiva clear, extraocular movement intact, PERRLA, sclera anicteric. Neck: no, JVD, trachea midline, no, lymphadenopathy, neck supple, normal ROM. Respiratory: Clear to auscultation, no distress. Cardiovascular: regular rate and rhythm, S1, S2, normal, without murmurs, rubs or gallops, pulses, palpable, symetric. Abdomen: Soft, non tender. No rebound. No guarding Extremities: dry, moves all. Musculoskeletal: Full range of motion, no CVA tenderness, no muscle spasm Skin: warm, dry, no, lesions, rash. Neurologic: Alert and oriented x3. Psychiatric: affect and demeanor normal Diagnosis, Assessment PlanAdditional comments:This is a 73-year-old gentleman with past medical history of coronary artery disease status post coronary artery bypass graft surgery on 3CABG x 4 (MCCORMICK-LAD,SVG-Renea, SVG-OM, SVG-PDA) Patient was DC'd home on 03/13/2023. He was DC'd home on home oxygen for findingsconsistent with COPD. The patient reports over the past few weeks he has experienced increased shortness of breath with exertion.The patient denies any lower extremity edema and in fact reports his lower extremity edema has slightly improved since his hospital stay. The patient presented to hospital on [facility] for evaluation of shortness ofbreath. During his hospitalization for coronary bypass graft surgery the patient's creatinine wero to 3 and came down to baseline of 1.6.His admission creatinine today 2.9 The patient denies any chest pains, denies any palpitations. Assessment/plan1. Coronary artery disease Status post coronary bypass graft surgery . CKD Consult renal3. COPD4. Shortness of breath Sternal wound is clean and dry. There is no signs of infection. Sternum is stable.Left leg wound graft site also clean and dry no signs of infection We will obtain echocardiogram, cardiac consultation and renal consultation.Continue daily labsDaily chest x-rayWe will continue to follow at 1706 at 1005 RPT #:[id number] OF REPORTRDTlaqftzdicyw2143-35-95W23:57:00G.PDOC2 [id number] for patient kcskBCVNDYNEBVRBOK2323-25-88M13:06:58 [facility] 2023-04-08 13:58:00 [id number] AcamDKsIlR3qC68qOYntjDmjsZ3CU 2gcc/F8dilvOKt/GSYOtCs8+jb17750-80-60K64:58:00 [facility] ([facility])EMERGENCY PROVIDER REPORTREPORT#:[id number] REPORT STATUS: SignedDATE:04/08/23 TIME: 1358 PATIENT: TEVIN NYE UNIT #: [id number]#: [id number] [facility]ED[facility]AGE: 73 SEX: M PCP PHYS: Samuel Mcguire MDSERVICE AUTHOR: Paolo Arreola MD * ALL edits or amendments must be made on the electronic/computer document * HPI-General Illness GeneralInitial Greet Date/Time 04/08/23 1252 PresentationChief Complaint Chest pain, Shortness of breath, LIGHTHEADED, NEAR SYNCOPE Free Text HPI NotesFree Text HPI Zqlwa26-wkxt-yoo male with a past medical his hypertension, diabetes, hyperlipidemia,CAD status post CABG in March 2023 at our facility, COPD on 2 L home oxygen. Presents to the emergency department for increased SOB with exertion. Denied fever, chills, URI symptoms, abd pain, diarrhea, nausea and vomiting, dysuria, melena, hematochezia. Review of Systems ROS StatementsAll systems rev neg except as marked. Review of SystemsRespiratoryReports: Shortness of breath. CardiovascularReports: Chest pain. NeurologicReports: Syncope. Past Medical History - AdultStated Complaint PNEUMONIA, HYPOTENSION, DIZZINESS, TRIGEMINYAllergiesCoded Allergies:Penicillins (USE COMMENT BUTTON 03/03/23) PT STATES THAT HE WAS JUST TOLD THAT HE'S ALLERGIC TO PENICILLIN AND ITS NOT GONNA WORK FOR HIM Home MedicationsActive ScriptsATORVASTATIN (LIPITOR) 40 MG PO 2100 30 Days #30 TAB Prov: 03/13/23ASPIRIN 81 MG PO DAILY 30 Days #30 TAB Prov: 03/13/23 Reported MedicationsOXYBUTYNIN (DITROPAN) 5 MG PO BID FLUoxetine (PROzac) 10 MG PO QAM LATANOPROST (XALATAN 0.005% OPHTH SOLN) 1 DROP EACH EYE BEDTIME INSULIN LISPRO (HumaLOG KWIKPEN (3mL)) 6 CALCIUM CARBONATE/VIT D3 (CALCIUM CARB/VIT D3 500 MG/200 UNITS) 2 TAB PO DAILY CYANOCOBALAMIN (VITAMIN B-12) 100 MCG PO DAILY TAMSULOSIN ER (FLOMAX) 0.8 MG PO BEDTIME TAMSULOSIN ER (FLOMAX) 0.8 MG PO BEDTIME #2 TAB INSULIN LISPRO (HumaLOG) 30 BRIMONIDINE (ALPHAGAN 0.2% OPHTH SOLN) 1 DROP EACH EYE BID Calculated Suicide Risk (nurs) No riskPast Medical History:Reports: COPD, Diabetes mellitus, Hypertension, BPH, Dyslipidemia. Past Surgical History:Reports: Knee procedure, Lung surgery (collapsed lung). Additional Family HistoryUTOAlcohol Use Denies EtOH useDrug Use Denies recreational drugsSmoking status for patients 13 years old or older: Former SmokerAdditional Social HistoryLIVES AT HOME ALONE. HIS YOUNGER BROTHER LIVES ACROSS THE STRE[address]. [place]. NO STAIRS. HE WAS IND PLOF. NO DME USED . OCCASSIONAL CANE USED. NO OXYGEN Physical Exam Vital SignsVital SignsFirst Documented: Result Date Time Pulse Ox 97 04/08 1251 B/P 120/57 04/08 1251 B/P Mean 78 04/08 1251 O2 Delivery Nasal cannula 04/08 1251 O2 Flow Rate 2 04/08 1251 Temp 36.5 04/08 1251 Pulse 75 04/08 1251 Resp 17 04/08 1251 Last Documented: Result Date Time Pulse Ox 97 04/08 1600 B/P 134/62 04/08 1600 B/P Mean 89 04/08 1600 Pulse 72 04/08 1600 Resp 19 04/08 1600 O2 Delivery Nasal cannula 04/08 151 O2 Flow Rate 2 04/08 1515 Temp 36.5 04/08 1251 Review of Vital Signs Reviewed, Vital signs normal Free Text PE NotesFree Text PE NotesGeneral/Const Awake, AlertHENT Head atraumatic, normocephalic, ears/nose/throat airway patent, TMs clear bilaterallyMS Neck Neck Supple, no swelling, no tenderness to palpationResp/Chest CTAB, No respiratory distress, no rales, no rhonchi, no wheezingCardiovascular Normal rate, regular rhythm, heart sounds. No rubs murmurs gallopsAbdomen/GI Normal bowel sounds, soft, nontender, nondistended. No rebound or guardingMS1+ pitting edema to the lower extremities, wound to the dorsum of the left foot healing appropriately with no surrounding cellulitis.Skin Skin Warm, Dry, no abrasions, rashes, lacerationsNeurologic Neurologic Oriented X3, Speech NL, no focal neuro deficits, CN 2-12 intact, 5/5 strength, sensation intact Interpretation Diagnostics Lab Results InterpretationResultsLaboratory Tests 04/08/23 1307:[Embedded Image Not Available]Laboratory Tests: 04/08 04/08 04/08 1510 1307 1307 Chemistry Sodium (134 - 147 mEq/L) 142 Potassium (3.4 - 5.0 mEq/L) 4.2 Chloride (100 - 108 mEq/L) 108 Carbon Dioxide (21 - 33 mEq/l) 26 Anion Gap (0 - 20) 13 BUN (7 - 18 mg/dL) 46 H Creatinine (0.6 - 1.3 mg/dL) 2.9 H Glomerular Filtr Rate (70 - 80) 22.3 L Glucose (70 - 110 mg/dL) 63 L Calcium (8.0 - 10.5 mg/dL) 8.4 Total Bilirubin (0.0 - 1.0 mg/dL) 0.20 AST (15 - 37 IUnit/L) 21 ALT (30 - 65 IUnit/L) 27 L Total Alk Phosphatase (20 - 125 IUnit/L) 89 Troponin I High Sens (0 - 54 ng/L) 16 B-Natriuretic Peptide (0 - 100 PG/ML) 396.0 H Total Protein (6.4 - 8.2 g/dL) 6.2 L Albumin (3.4 - 5.0 g/dL) 2.70 L Coagulation D-Dimer (<=500 ng/mlFEU) 1496 *H Hematology WBC (4.5 - 11.0 x10 3/uL) 5.7 RBC (4.00 - 5.60 x10 6/uL) 3.12 L Hgb (12.5 - 16.9 g/dL) 8.9 L Hct (37.5 - 50.7 %) 28.2 L MCV (81.0 - 99.0 fL) 90.4 MCH (27.0 - 33.0 pg) 28.5 MCHC (33.0 - 37.0 g/dL) 31.6 L RDW (11.5 - 14.5 %) 15.9 H Plt Count (150 - 400 x10 3/uL) 266 MPV (7.0 - 9.0 fL) 10.1 H Neut % (Auto) (56.0 - 77.0 %) 83.9 H Lymph % (Auto) (14.0 - 32.0 %) 7.5 L [place] % (Auto) (4.8 - 9.0 %) 5.6 Eos % (Auto) (0.3 - 3.7 %) 0.7 Baso % (Auto) (0.0 - 2.0 %) 0.7 Neut # (Auto) (2.0 - 7.6 x10 3/uL) 4.78 Lymph # (Auto) (1.0 - 3.8 x10 3/uL) 0.43 L [place] # (Auto) (0.1 - 0.8 x10 3/uL) 0.32 Eos # (Auto) (0.0 - 0.2 x10 3/uL) 0.04 Baso # (Auto) (0.0 - 0.2 x10 3/uL) 0.04 Abs Immat Gran (auto) (0.00 - 0.03 x10 3/uL) 0.09 H Add Manual Diff NO Immature Gran % (0.0 - 2.0 %) 1.6 Nucleated RBC % (0 - 0 %) 0.0 Nucleated RBCs # (Man) (0.0 - 0.1 x10 3/uL) 0.00 Urines Urine Color (YEL/STRAW) STRAW Urine Appearance (CLEAR) CLEAR Urine pH (5.0 - 7.0) 5.0 Ur Specific [place] (1.005 - 1.030) 1.006 Urine Protein (NEGATIVE) NEGATIVE Urine Glucose (UA) (NEGATIVE) NEGATIVE Urine Ketones (NEGATIVE) NEGATIVE Urine Blood (NEGATIVE) NEGATIVE Urine Nitrite (NEGATIVE) NEGATIVE Urine Bilirubin (NEGATIVE) NEGATIVE Urine Urobilinogen (0.2 - 1.0 mg/dL) 0.2 Ur Leukocyte Esterase (NEGATIVE) NEGATIVE Urine RBC (0 - 3 RBC/HPF) 0-3 Urine WBC (0 - 3 WBC/HPF) 0-3 Ur Squamous Epith Cells (NONE SEEN /HPF) NONE SEEN Urine Bacteria (NONE SEEN /HPF) NONE SEEN Urine Mucus (NONE SEEN /LPF) TRACE Recent Impressions:RADIOLOGY - XR CHEST 2 V 04/08 1445 Report Impression - Status: SIGNED Entered: 04/08/2023 1534 IMPRESSION: Emphysematous changes noted in the right lower lung with prominent peribronchiolar markings noted. Impression By: Amber Valentin M.D. Lab Imaging StatementLaboratory radiographic studies reviewed and considered in the medical decision-making. ECG #1 InterpretationText/Dict Note73 bpm normal sinus rhythm no ST elevation, ST depression or T wave inversions noted.Date 04/08/23Time 1318Interpreted by and reviewed by me, ED physician Free Text I D NotesFree Text I D NotesRecent Impressions:RADIOLOGY - XR CHEST 2 V 04/08 1445 Report Impression - Status: SIGNED Entered: 04/08/2023 1534 IMPRESSION: Emphysematous changes noted in the right lower lung with prominent peribronchiolar markings noted. Impression By: Amber Valentin M.D. Re-Evaluation MDM ConsultationConsultation Referral/Consult Name Luci Villeda MD Call Returned Call returned Call Returned Time 1647 Call Returned Date 04/08/23 Free Text Consult NotesADMIT TO MEDICINE, [facility] CON[facility]. ORDER ECHO Free Text MDM NotesFree Text MDM Pgvyk90-azuj-mmv male with a past medical his hypertension, diabetes, hyperlipidemia,CAD status post CABG in March 2023 at our facility, COPD on 2 L home oxygen. Presents to the emergency department for increased SOB with exertion. Denied fever, chills, URI symptoms, abd pain, diarrhea, nausea and vomiting, dysuria, melena, hematochezia. VSS. Lungs CTAB. No lower extremity edema. Labs showed normal trop, mildly elevated BNP 396, elevated ddimer. CXR showed no acute cardiopulmonary findings, Emphysematous changes noted in the right lower lung with prominent peribronchiola. Will hold off on CT PE study as patient has elevated creatinine. Low suspicion for PE, however patient will likely need VQ scan. Willadmit to hospital medicine for further evaluation and treatment. Will place a consult for CT surgery. Patient Discharge Departure Vital Signs/ConditionVital SignsFirst Documented: Result Date Time Pulse Ox 97 04/08 1251 B/P 120/57 04/08 1251 B/P Mean 78 04/08 1251 O2 Delivery Nasal cannula 04/08 1251 O2 Flow Rate 2 04/08 1251 Temp 36.5 04/08 1251 Pulse 75 04/08 1251 Resp 17 04/08 1251 Last Documented: Result Date Time Pulse Ox 97 04/08 1600 B/P 134/62 04/08 1600 B/P Mean 89 04/08 1600 Pulse 72 04/08 1600 Resp 19 04/08 1600 O2 Delivery Nasal cannula 04/08 1515 O2 Flow Rate 2 04/08 1515 Temp 36.5 04/08 1251 All vital signs available at the time of this entry have been reviewed. Condition Stable Clinical ImpressionClinical ImpressionPrimary Impression: Chest painSecondary Impressions: Near syncope, SOB (shortness of breath) Disposition DecisionHospitalize Hosp Physician Name Elvie Gamboa MD )( Accepts Hospitalization Yes )( Reason for HospitalizationCHEST PAIN, SOB, NEAR SYNCOPE )( Accepted Time 1646 )( Accepted Date 04/08/23 Call Information will see patient Discharge/Care PlanCounseled Regarding Diagnosis, Lab results, Imaging studies, Need for admission(Auto) PrescriptionsCurrent Visit ScriptsMETOPROLOL TARTRATE (LOPRESSOR) 50 MG PO BID METOPROLOL TARTRATE (LOPRESSOR) 50 MG PO BID #60 TAB Ref 2 AMIODARONE (PACERONE) 200 MG PO DAILY AMIODARONE (PACERONE) 200 MG PO DAILY #30 TAB APIXABAN (ELIQUIS) 5 MG PO BID APIXABAN (ELIQUIS) 5 MG PO BID #60 TAB Ref 4 Admit NoteI have spoken with the patient and/or caregivers. I have explained the patient'scondition, diagnoses and treatment plan based on the information available to meat this time. I have answered the patient's and/or caregiver's questions and addressed any concerns. The patient and/or caregivers have as good an understanding of the patient's diagnosis, condition and treatment plan as can beexpected at this point. The patient has been stabilized within the capability [facility] emergency department. The patient will be transported for further care and management or will be moved to an observation or inpatient service. I have communicated with the staff or medical practitioner taking over this patient's care. at 1226RPT #:[id number] OF REPORTEDEmergreat river medical center department maofwn1501-61-63L41:58:00G.[id number] ilable for patient dbfwLZWGJIULNFJLEC5551-97-38J75:27:08 [facility] 2023-04-08 13:17:00 [id number] DBbxOgjnCxs9EAwq1txWgUNOkB1OG 5ejhU1SDk3OdWkObuitEMSJiOhn7073-97-86S96:17:80517 1-[address] [place] [address] PATIENT NAME: TEVIN NYE ADMIT DATE: 04/08/23ACCOUNT NO: [id number] ROOM NO: G.5517 AGE: 73 REPORT TYPE: eELECTROCARDIOGRAM REPORT SEX: M ADMITTING PHYSICIAN:Elvie Gamboa MD ATTENDING PHYSICIAN:Elvie Gamboa MD Order:[id number] Reason : DONE IN ER Test Date/Time Stamp:FriApr 08 2023 13:17:45Blood Pressure : / mmHGVent. Rate : 072 BPM Atrial Rate : 072 BPM P-R Int : 144 ms QRS Dur : 100 ms QT Int : 410 ms P-R-T Axes : 061 -69 091 degrees QTc Int : 448 ms Normal sinus rhythmLeft axis deviationNonspecific T wave abnormalityAbnormal ECGWhen compared with ECG of 06-MAR-2023 01:03,Significant changes have occurredSee Emergency Department physician record for final interpretation.Confirmed by JAYANT GROVER MD ([id number]), medical editor KEZIA GROVES ([id number]) on 38:48:43 PM Referred By: Elvie Gamboa Confirmed by:JAYANT GROVER MD at 2048 PATIENT NAME: TEVIN NYE .[id number] AVAvailable for patient gqstTUFHJONPYANFYK4586-38-57A56:49:06 [facility] 2023-04-04 09:07:00 [id number] lIKMIQFPt04LtkF2GJducjzABPqwC GBxbx9lmhuV18lKhUYUTd4mAZUC9875-43-90G12:07:00 [facility] Oper[facility] NoteREPORT#:[id number] REPORT STATUS: SignedDATE:04/04/23 TIME: 09 PATIENT: TEVIN NYE UNIT #: [id number]#: [id number] ROOM/BED:: 51 AGE: 73 SEX: M ATTEND: Samuel Mcguire DT: AUTHOR: Samuel Mcguire MD * ALL edits or amendments must be made on the electronic/computer document * Operative Report Operative NoteNote:On 03/04/[address] Villeda with the aparicio features of this operation incluidng CABGs and LAAA Samuel Mcguire MD at 0908 RPT #:[id number] OF REPORTOPOperative lttjea5196-75-29W29:07:00G.[id number] ilable for patient xxluPBAYBDOQSOCPZJ9547-81-25O64:08:41 [facility] 2023-03-18 14:39:00 [id number] i8haxFmO8icqpXUckjBytl/WVyvSW zRxQcaiXmyScvhpanS6GFKSOBU48749-59-23F58:39:15266 1-[address]75 [place] [address] PATIENT NAME: TEVIN NYE ADMIT DATE: 03/03/23ACCOUNT NO: [id number] ROOM NO: G.3343 AGE: 72 REPORT TYPE: 360 - QUERY RESPONSE DOCUMENT SEX: M ADMITTING PHYSICIAN:Luci Villeda MD ATTENDING PHYSICIAN:Luci Villeda MD Provider Query QUERY TEXT: Stage CKD 360MD Query related questions should be directed to:[facility] Coding Query Helpline Based on your clinical judgment, can you further specify the stage of the chronic kidney disease located in [Critical Care Progress Note 03/10/2023.]? Pertinent lab findings are as follows:[Insert serum creatinine and/or glomerular filtration rate and date(s)] Stages of Kidney Damage according to the National Kidney Foundation are defined as follows:-- Stage 1 Kidney damage with normal kidney function (GFR > 90)-- Stage 2 Kidney damage with mildly decreased kidney function (GFR 60-89)-- Stage 3a Kidney damage with mildly to moderately decreased kidney function (GFR 45-59)-- Stage 3b Kidney damage with moderately to severely decreased kidney function (GFR 30-44)-- Stage 4 Kidney damage with severely decreased kidney function (GFR 15-29)-- Stage 5 Kidney failure (GFR <15 or on dialysis)-- End Stage Renal Disease (GFR <15 or on dialysis or transplant) The patient's Clinical Indicators include:Developed acute kidney injury on CKD-Critical Care Progress Note 03/10/2023. CREATININE (mg/dL) 1.6H 1.6H 1.6H 1.5H 1.8H 1.9H 2.0H 2.5H 2.7H 2.8H 2.9H 3.0H 3.1H 2.9H 2.GLOMERULAR FILTRATION RATE 45.8L 45.8L 45.8L 49.5L 39.7L 37.3L 35.0L 26.8L 24.4L 23.4L 22.4L 21.5L 20.BUN (7 - 18 mg/dL) 37 H-Nephrology Consultation Note 03/05/2023.NS 1,000 mL-MAROptions provided:-- Stage 1-- Stage 2-- Stage 3a-- Stage 3b-- Stage 3-- Stage 4-- Stage 5-- End Stage-- Other - I will add my own diagnosis-- Dismiss - Not applicable / Not valid-- Dismiss - Clinically unable to determine / Unknown-- Assign to another provider QUERY RESPONSE: The patient has stage 3b chronic kidney disease. Query created by: Kolby Soriano on 03/16/2023 10:28 PM at 1439 PATIENT NAME: TEVIN NYE noteG.[id number] for patient sojcFUYLRXDDDXNDBR9450-67-86J41:40:24 [facility] 2023-03-14 16:47:00 [id number] [id number] dkoa4KNyn2GWn3mN33uY45+ww571664-43-83B69:47:00 [facility] ([facility])Discharge SummaryREPORT#:[id number] REPORT STATUS: SignedDATE:03/14/23 TIME: 1646 PATIENT: TEVIN NYE UNIT #: [id number]#: [id number] [address] [birth year] AGE: 72 SEX: M ATTEND: Luci Villeda [facility] AUTHOR: Evon Andrew Physic * ALL edits or amendments must be made on the electronic/computer document * General InformationDischarge date: 03/13/23Discharge diagnosis:CAD, S/P CABGHospital course:This is a pleasant 72 year old male with past medical history of hypertension, dyslipidemia, DM-2 (on insulin), former smoker (quit 2018), BPH, prostate CA s/pradiation, COPD (uses inhaler at home, no home oxygen), and PE (November 2022 on eliquis) who presented to [facility] with chest pain, dyspnea on exertion, and NSTEMI. Coronary angiogram was done and revealed severe multivessel coronary artery disease. Patient was then transferred to [facility] for CV surgery evaluation and need for CABG. PLAN Admit patient to CVICUInitiate preop workupIncentive spirometer teachingCarotid ultrasoundBLE vein mappingCT chest non-contrastUA to r/o UTIEchocardiogramHeparin and Nitro dripConsult pulmonary, cardiology, and intensivistCoronary angiogram reviewed and patient will benefit from surgical revascularizaton. The surgery, risks involved, STS score, benefits, complications and alternatives were explained to the patient and his brother. He acknowledged understanding and is willing to proceed. We will tentatively schedule him for surgery tomorrow morning.Further recommendations to follow. 03/04/23CABG x 4 (MCCORMICK-LAD,SVG-Renea, SVG-OM, SVG-PDA)ALAAEVH (LGSV)Posterior pericardiotomy 03/05/23POD 1Patient alert, awake, and orientedLabs and CXR reviewedOn bipap 12/5 40%, wean off as toleratedTrend abgsWean off levo as toleratedKeep both chest tubesMonitor strict I Os and renal functionPT/OT, ambulate, OOB in chairDVT ppx with SCDsMonitor patient closely in CVICU 03/06/23POD 2Patient in stable conditionCXR and labs reviewedHGB 6.6, transfuse 2 units PRBCDiscontinue dopamine dripEchocardiogramDiscontinue both chest tubesCR increasing, renal following, UOP 25 cc/hrOOB in chairMonitor closely in CVICU 03/07/23POD 3Patient alert, awake, and oriented, no complaintsLabs and CXR reviewedOn 2l nasal cannula, encourage I-S useHgb stable 10.1Discontinue left pleural chest tubeOn david villasenorip 0.5Monitor renal function, Cr 2.9Consult rehabAmbulate patient with PT/OTKeep patient in CVICU 03/08/23POD 4Patient recovering wellCXR and labs reviewedWean oxygen off as toleratedNSR, off amio drip, continue poRenal following, CR improving now 2.5Encourage mobilization and I-S useKeep in CVICU 03/09/23POD 5Patient resting comfortable, out of bed in reclinerOn room airEncourage I-S useDiurese with lasix, CR 1.9Monitor strict I OsRehab consultedKeep central line and foleyPT/OTMonitor patient in CVICU 03/10/23POD 3UANd0Katqcpigfxe: On room air 97%, Encourage IS, Deep Breathing, CXR reviewed Cardiac: Remains sinus rhythm, pacing wires on standbyGI: + BM, Continue Bowel regimenGU: DC Valencia todayUO:1450, diuresing well.Continue PT/OTDisposition: Rehab versus homeDVT prophylaxisLabs reveiwed- replace electrolytes as neededPatient seen and examined by Dr. Villeda. Plan of care discussed with multidisciplinary teamDC neck line 03/11/23POD 6GKEy1Cvpgzasit of feeling anxious. Denies chest pains, denies shortness of breathRenal following started on Lasix 40 twice dailyCardiac: Remains sinus rhythm, pacing wires DC'd Will obtain echoRespiratory: On room airPatient declines inpatient rehab, patient states he will go home with his [facility] with case management, patient states he will go home withhis brother for supportPatient was seen and examined by Dr. Kathleenart home ProzacContinue PT OT, out of bedNeeds more diuresing, renal followingHome soon 03/12/23POD 9TGFo9Pqjjdgl resting comfortable. On 2 L nasal cannulaPacing wires DC'd yesterday. Echo shows no pericardial effusionDVT studies completed this morning. No evidence for DVTChest x-ray reviewedRespiratory: Still requiring 2 L nasal cannula, Wean as tolerated. Cardiac: Remains sinus rhythmGI:+ BM. Eating wellGU: Voiding well. 800 urine outputRenal following- Recieving Lasix 40 mg IV twice daily monitor creatinineLabs reviewed.Patient continues diuresing.Pulmonary followingCoutninue out of bed, walking twice daily today. discussed with nurse. 03/13/23POD 4VHKh1Oiwrjex resting comfortable. On 2 L nasal cannulaPacing wires DC'd Echo shows no pericardial effusionDVT studies completed No evidence for DVTChest x-ray reviewedRespiratory: Still requiring 2 L nasal cannula, Patient did walk test with nurse, Desat to 81%, averages 87-90%Cardiac: Remains sinus rhythmGI:+ BM. Eating wellGU: Voiding well. 185 urine outputRenal following- Recieving Lasix 40 mg IV twice daily Creatine stable 1.6Labs reviewed.Patient continues diuresing.Pulmonary followingHolden Hospitale health ordered. - patient will need home O2 Patient DC'd home when home O2 arranged. Consultants: anesthesiology, cardiology, cardiovascular surgery, critical/osteopathy doctor, hospitalist Med Rec PCPPCP:PCP: No Primary or Family Physician Med RecDischarge meds:Stop taking the following medications:LISINOPRIL (ZESTRIL) 20 MG TAB 20 MILLIGRAM ORAL DAILY. METOPROLOL TARTRATE (LOPRESSOR) 50 MG TAB 25 MILLIGRAM ORAL TWICE DAILY. HYDROCHLOROTHIAZIDE (HYDRODIURIL) 25 MG TAB 25 MILLIGRAM ORAL DAILY. APIXABAN (ELIQUIS) 5 MG TAB 5 MILLIGRAM ORAL TWICE DAILY. ASPIRIN (ASPIRIN) 81 MG TAB.CHEW 81 MILLIGRAM ORAL DAILY. ATORVASTATIN (LIPITOR) 10 MG TAB 5 MILLIGRAM ORAL DAILY. Continue taking these medications:OXYBUTYNIN (DITROPAN) 5 MG TAB 5 MILLIGRAM ORAL TWICE DAILY. TAMSULOSIN ER (FLOMAX) 0.4 MG CAP.SR.24H 0.8 MILLIGRAM ORAL DAILY. FLUoxetine (PROzac) 10 MG CAP 10 MILLIGRAM ORAL EVERY MORNING. LATANOPROST (XALATAN 0.005% OPHTH SOLN) 0.005 % OPHTH.SOLN 1 DROPS EACH EYE BEDTIME. INSULIN LISPRO (HumaLOG KWIKPEN (3mL)) 100 UNIT/ML INSULN.PEN 6 INSULIN LISPRO (HumaLOG) 100 UNIT/ML VIAL 50 CALCIUM CARBONATE/VIT D3 (CALCIUM CARB/VIT D3 500 MG/200 UNITS) 500 MG CALCIUM-5MCG (200 UNIT) TAB 2 TABLET ORAL DAILY. CYANOCOBALAMIN (VITAMIN B-12) 100 MCG TAB 100 MICROGRAM ORAL DAILY. Start taking the following new medications:CLOPIDOGREL (PLAVIX) 75 MG TAB 75 MILLIGRAM ORAL DAILY. Days = 30 Qty = 30 No Refills AMIODARONE (PACERONE) 200 MG TAB 200 MILLIGRAM ORAL EVERY 12 HOURS. Days = 30 Qty = 30 No Refills Instructions: Take 200 mg BID x 1 week, then 200 mg QD x 1 week ATORVASTATIN (LIPITOR) 40 MG TAB 40 MILLIGRAM ORAL 2100 Days = 30 Qty = 30 No Refills METOPROLOL TARTRATE (LOPRESSOR) 25 MG TAB 25 MILLIGRAM ORAL EVERY 12 HOURS. Days = 30 Qty = 60 No Refills amLODIPine (NORVASC) 10 MG TAB 10 MILLIGRAM ORAL DAILY. Days = 30 Qty = 30 No Refills ASPIRIN (ASPIRIN) 81 MG TAB.CHEW 81 MILLIGRAM ORAL DAILY. Days = 30 Qty = 30 No Refills FUROSEMIDE (LASIX) 40 MG TAB 20 MILLIGRAM ORAL DAILY. Days = 30 Qty = 30 No Refills ObjectiveVS/I OLast Documented: Result Date Time O2 Flow Rate 2 03/13 1230 Pulse Ox 96 07/ 1110 B/P 124/58 07/ 1110 B/P Mean 0.0 / 1110 O2 Delivery Room air 03/13 1110 Temp 98.2 07/06 1110 Pulse 63 07/06 1110 Resp 25 / 1110 FiO2 28 / 2131 24 hour I O ending at 0700: 07 0700 07 1900 Intake Total 500 Output Total Balance 500 Intake, Oral 500 Number Voids 3 PATIENT WEIGHT: Weight (lb): 184Weight (oz): 8.43Weight (kg): 83.700 General appearance: alert, awake, oriented Discharge Instructions PCPPCP:PCP: No Primary or Family Physician )( Discharge to: Home Health [facility] of Care Discharge InstructionsAdditional Discharge Routines: Attending Follow-Up)( Diet: Cardiac Follow-up AppointmentsAttending Physician: Attending Physician: Luci Villeda MD Attending physician follow up timeframe: In 1-2 weeks at 1651 at 1838 RPT #:[id number] OF REPORTDSDischarge ffpwiei3199-03-25J13:47:00G.[id number] ailable for patient qnfrBJQOEHETFNQFXC0524-69-76V77:51:34 [facility] 2023-03-13 13:19:00 [id number] cL1pDuJwKI2XkPgzjB40UTeuL/wOc vjQRhJGGFZ2YL+6uAoa6FkJGGMq3991-61-12W72:19:00 [facility] ([facility])Pulmonology Progress NoteREPORT#:[id number] REPORT STATUS: SignedDATE:03/13/23 TIME: 1319 PATIENT: TEVIN NYE UNIT #: [id number]#: [id number] [address] [birth year] AGE: 72 SEX: M ATTEND: Luci Villeda MDADM AUTHOR: Sharmila Alan * ALL edits or amendments must be made on the electronic/computer document * SubjectiveComments:On room air, no new complaints ROSAll systems rev neg: except as marked Objective GeneralVS/I O:Last Documented: Result Date Time Pulse Ox 96 03/13 1110 B/P 124/58 03/13 1110 B/P Mean 0.0 03/13 1110 O2 Delivery Room air 03/13 1110 Temp 36.8 03/13 1110 Pulse 63 03/13 1110 Resp 25 03/13 1110 O2 Flow Rate 2 03/12 2200 FiO2 28 /04 2131 24 hour I O ending at 0700: 06 0700 07/05 1900 Intake Total 1040 Output Total 2200 Balance -1160 Intake, Oral 1040 Number Voids 2 Output, Urine 2200 Patient 83.7 kg Weight Weight Standing scale Measurement Method PATIENT WEIGHT: Weight (lb): 184Weight (oz): 8.43Weight (kg): 83.700 Medications:Active Meds + DC'd Last 24 HrsFurosemide (LASIX) 40 MG BID 9A 5P PO Furosemide (LASIX 40 mg/4 mL INJECTION) 40 MG BID 9A 5P IV (DC) Metoprolol Tartrate (LOPRESSOR) 25 MG Q12HR PO Amlodipine Besylate (NORVASC) 10 MG DAILY PO Fluoxetine HCl (PROzac) 10 MG DAILY PO Insulin Human Lispro (HUMALOG) 0 AC HS SUBQ Ipratropium [place] (ATROVENT) 500 MCG RTQ2H PRN PRN INH Amiodarone HCl (CORDARONE) 400 MG Q12HR PO (CKD) Cyanocobalamin (Vitamin B-12 500 mcg tab) 500 MCG DAILY PO Ferrous Sulfate (FERROUS SULFATE) 325 MG DAILY PO Calcium Carbonate (TUMS CHEW TAB) 1,000 MG Q6H PRN PRN PO Bisacodyl (DULCOLAX) 10 MG ONCE PRN RECTAL Atorvastatin Calcium (LIPITOR) 40 MG 2100 PO Budesonide (PULMICORT RESPULES) 0.5 MG RTBID INH Formoterol Fumarate (PERFOROMIST) 20 MCG RTBID NEB Sterile Water (WATER FOR INJECTION) 1 ML ASDIR PRN IV Tamsulosin HCl (Flomax 0.4 mg) 0.8 MG PC BK PO Clopidogrel Bisulfate (Plavix) 75 MG DAILY PO Polyethylene Glycol (MIRALAX) 17 GM DAILY PO Amiodarone HCl (AMIODARONE HCL) 450 MG ASDIR IV (CKD) Dextrose/Water (D5%W NON-DEHP) 250 MLPantoprazole (PROTONIX) 40 MG DAILY@0600 PO Aspirin (ASPIRIN) 81 MG DAILY PO Docusate Sodium (COLACE) 100 MG BID PO Sennosides (Senna Lax 8.6 MG TABLET) 17.2 MG BEDTIME PO Acetaminophen (TYLENOL) 650 MG Q4H PRN PRN PO Acetaminophen (TYLENOL) 650 MG Q4H PRN PRN RECTAL Calcium Chloride (CALCIUM CHLORIDE) 1 GM ASDIR PRN IV Dextrose/Water (DEXTROSE 10% IN WATER) 125 ML ASDIR PRN IV (CKD) Dextrose/Water (DEXTROSE 10% IN WATER) 250 ML ASDIR PRN IV (CKD) Epinephrine (ADRENALIN CHLORIDE) 4 MG ASDIR IV Dextrose/Water (DEXTROSE 5% WATER) 246 MLGlucagon (GLUCAGON) 1 MG ASDIR PRN IM Magnesium Sulfate (MAGNESIUM SULFATE 4GM/SWFI 100ML) 100 ML ASDIR PRN IV Magnesium Sulfate (MAGNESIUM SULFATE 2GM/SWFI 50ML) 50 ML ASDIR PRN IV Magnesium Sulfate/Dextrose (MAGNESIUM SULFATE 1GM/D5W 100ML) 100 ML ASDIR PRN IV Nitroglycerin/Dextrose (NITROGLYCERIN 50,000MCG/D5W 250ML) 250 ML ASDIR IV Ondansetron HCl (ZOFRAN) 4 MG Q6H PRN PRN IV Potassium Chloride (KCL 20MEQ/SWFI 100ML) 100 ML ASDIR PRN IV Sodium Bicarbonate (SODIUM BICARBONATE) 50 MEQ ASDIR PRN IV Physical ExamGeneral appearance: alert, awake, oriented, no acute distressHead/eyes: atraumatic, normocephalic, PERRLNeck: supple/no meningismus, no bruit/NL carotids, no JVD, no lymphadenopathyCardiovascular: normal S1/S2, no rub, no gallopRespiratory/chest: decreased breath sounds, prolonged exp phase, wheezing, symmetric expansionAbdomen: soft, normal bowel sounds, no distention, no guardingExtremities: no clubbing, no cyanosisNeuro/SALES ASSISTANT: alert, oriented X 3, no motor deficitsSkin: dry, normal colorPsychiatry: normal affect, no hallucinations ResultsFindings/Data:Laboratory Tests 03/13/23 0454:[Embedded Image Not Available]Laboratory Tests 03/13 03/13 03/13 03/12 03/12 1104 0639 0454 1837 1612 Chemistry Sodium (134 - 147 mEq/L) 143 Potassium (3.4 - 5.0 mEq/L) 4.2 Chloride (100 - 108 mEq/L) 105 Carbon Dioxide (21 - 33 mEq/l) 33 Anion Gap (0 - 20) 9 BUN (7 - 18 mg/dL) 43 H Creatinine (0.6 - 1.3 mg/dL) 1.6 H Glomerular Filtr Rate (70 - 80) 45.8 L Glucose (70 - 110 mg/dL) 187 H POC Glucose (70 - 110 MG/DL) 307 H 198 H 235 H 186 H Calcium (8.0 - 10.5 mg/dL) 8.5 Magnesium (1.80 - 2.40 mg/dL) 1.81 Laboratory Tests 03/13 0454 Hematology WBC (4.5 - 11.0 x10 3/uL) 6.2 RBC (4.00 - 5.60 x10 6/uL) 3.43 L Hgb (12.5 - 16.9 g/dL) 10.4 L Hct (37.5 - 50.7 %) 31.9 L MCV (81.0 - 99.0 fL) 93.0 MCH (27.0 - 33.0 pg) 30.3 MCHC (33.0 - 37.0 g/dL) 32.6 L RDW (11.5 - 14.5 %) 14.8 H Plt Count (150 - 400 x10 3/uL) 169 MPV (7.0 - 9.0 fL) 10.6 H Neut % (Auto) (56.0 - 77.0 %) 85.4 H Lymph % (Auto) (14.0 - 32.0 %) 4.6 L [place] % (Auto) (4.8 - 9.0 %) 7.2 Eos % (Auto) (0.3 - 3.7 %) 1.8 Baso % (Auto) (0.0 - 2.0 %) 0.0 Neut # (Auto) (2.0 - 7.6 x10 3/uL) 5.33 Lymph # (Auto) (1.0 - 3.8 x10 3/uL) 0.29 L [place] # (Auto) (0.1 - 0.8 x10 3/uL) 0.45 Eos # (Auto) (0.0 - 0.2 x10 3/uL) 0.11 Baso # (Auto) (0.0 - 0.2 x10 3/uL) 0.00 Abs Immat Gran (auto) (0.00 - 0.03 x10 3/uL) 0.06 H Add Manual Diff NO Immature Gran % (0.0 - 2.0 %) 1.0 Nucleated RBC % (0 - 0 %) 0.0 Nucleated RBCs # (Man) (0.0 - 0.1 x10 3/uL) 0.00 Radiology data:Recent Impressions:RADIOLOGY - XR [facility] W/C V 03/12 0156 Report Impression - Status: SIGNED Entered: 03/12/2023 1856 IMPRESSION: Unremarkable swallowing study. The reader is referred to dedicated speech therapy report for details.Impression By: t.SDR.KWL - Erlin Brown M.D. Diagnosis, Assessment PlanFree Text A P:1- Acute COPD exacerbation/postop respiratory insufficiency2- Recent pulmonary embolism s/p Eliquis3- NSTEMI/Multivessel coronary artery disease5- Hypertension6- History of tobacco use7- Obesity8- Acute renal failure9- S/P CABG X4 03/04/23 - On room air- S/P IV Solu-Medrol- Continue Pulmicort Perforomist and Atrovent nebulizers- Mucomyst/Hypersal as needed- CTA chest reviewed, no PE, emphysema, small effusions, RLL 1.[address] chest in 6-8 weeks. Patient informed - Renal function improving, nephrology following. On PO Lasix- CXR improving- PT/OT- Home with home O2 at 1320 RPT #:[id number] OF REPORTPRProgress yzek1870-18-63B26:19:00G.[id number] able for patient jszaXOTLPPNOHSQYJX3314-59-35J26:20:37 [facility] 2023-03-13 10:12:00 [id number] eL1WhrLgCGm0zxf5Xyg2vZx1AiDDm vnxVbWVjZJX4Z+EMU3e4lGvOcpy2380-58-98M58:12:00 [facility] ([facility])Nephrology Progress NoteREPORT#:[id number] REPORT STATUS: SignedDATE:03/13/23 TIME: 1012 PATIENT: TEVIN NYE UNIT #: [id number]#: [id number] [address] [birth year] AGE: 72 SEX: M ATTEND: Luci Villeda [facility] AUTHOR: Glendy Paz MD * ALL edits or amendments must be made on the electronic/computer document * SubjectiveComments:Doing well Objective GeneralVS/I O:Vital Signs: Date Time Temp Pulse Resp B/P B/P Pulse O2 O2 Flow FiO2 Mean Ox Delivery Rate 03/13 0642 98.1 69 20 126/60 0.0 95 Room air 03/13 0352 98.2 63 13 135/63 0.0 97 Nasal cannula 03/12 2320 97.9 65 13 151/70 0.0 97 Nasal cannula 03/12 2200 100 Nasal 2 cannula 03/12 1915 Nasal 2 cannula 03/12 1842 97.7 67 13 134/61 0.0 95 Room air 03/12 1611 69 26 132/60 87 99 / 1611 97.7 70 24 132/60 0.0 97 / 1144 63 27 101/55 75 98 / 1144 97.7 63 22 101/55 0.0 98 24 hour I O ending at 0700: 03/13 0700 03/12 1900 Intake Total 1040 Output Total 2200 Balance -1160 Intake, Oral 1040 Number Voids 2 Output, Urine 2200 Patient 83.7 kg Weight Weight Standing scale Measurement Method PATIENT WEIGHT: Weight (lb): 184Weight (oz): 8.43Weight (kg): 83.700 MedicationsActive Meds + DC'd Last 24 HrsFurosemide (LASIX 40 mg/4 mL INJECTION) 40 MG BID 9A 5P IV (DC) Metoprolol Tartrate (LOPRESSOR) 25 MG Q12HR PO Amlodipine Besylate (NORVASC) 10 MG DAILY PO Fluoxetine HCl (PROzac) 10 MG DAILY PO Insulin Human Lispro (HUMALOG) 0 AC HS SUBQ Ipratropium [place] (ATROVENT) 500 MCG RTQ2H PRN PRN INH Amiodarone HCl (CORDARONE) 400 MG Q12HR PO (CKD) Cyanocobalamin (Vitamin B-12 500 mcg tab) 500 MCG DAILY PO Ferrous Sulfate (FERROUS SULFATE) 325 MG DAILY PO Calcium Carbonate (TUMS CHEW TAB) 1,000 MG Q6H PRN PRN PO Bisacodyl (DULCOLAX) 10 MG ONCE PRN RECTAL Atorvastatin Calcium (LIPITOR) 40 MG 2100 PO Budesonide (PULMICORT RESPULES) 0.5 MG RTBID INH Formoterol Fumarate (PERFOROMIST) 20 MCG RTBID NEB Sterile Water (WATER FOR INJECTION) 1 ML ASDIR PRN IV Tamsulosin HCl (Flomax 0.4 mg) 0.8 MG PC BK PO Clopidogrel Bisulfate (Plavix) 75 MG DAILY PO Polyethylene Glycol (MIRALAX) 17 GM DAILY PO Amiodarone HCl (AMIODARONE HCL) 450 MG ASDIR IV (CKD) Dextrose/Water (D5%W NON-DEHP) 250 MLPantoprazole (PROTONIX) 40 MG DAILY@0600 PO Aspirin (ASPIRIN) 81 MG DAILY PO Docusate Sodium (COLACE) 100 MG BID PO Sennosides (Senna Lax 8.6 MG TABLET) 17.2 MG BEDTIME PO Acetaminophen (TYLENOL) 650 MG Q4H PRN PRN PO Acetaminophen (TYLENOL) 650 MG Q4H PRN PRN RECTAL Calcium Chloride (CALCIUM CHLORIDE) 1 GM ASDIR PRN IV Dextrose/Water (DEXTROSE 10% IN WATER) 125 ML ASDIR PRN IV (CKD) Dextrose/Water (DEXTROSE 10% IN WATER) 250 ML ASDIR PRN IV (CKD) Epinephrine (ADRENALIN CHLORIDE) 4 MG ASDIR IV Dextrose/Water (DEXTROSE 5% WATER) 246 MLGlucagon (GLUCAGON) 1 MG ASDIR PRN IM Magnesium Sulfate (MAGNESIUM SULFATE 4GM/SWFI 100ML) 100 ML ASDIR PRN IV Magnesium Sulfate (MAGNESIUM SULFATE 2GM/SWFI 50ML) 50 ML ASDIR PRN IV Magnesium Sulfate/Dextrose (MAGNESIUM SULFATE 1GM/D5W 100ML) 100 ML ASDIR PRN IV Nitroglycerin/Dextrose (NITROGLYCERIN 50,000MCG/D5W 250ML) 250 ML ASDIR IV Ondansetron HCl (ZOFRAN) 4 MG Q6H PRN PRN IV Potassium Chloride (KCL 20MEQ/SWFI 100ML) 100 ML ASDIR PRN IV Sodium Bicarbonate (SODIUM BICARBONATE) 50 MEQ ASDIR PRN IV Physical ExamGeneral appearance: alert, awake, orientedHead/eyes: atraumatic, normocephalic, PERRLANeck: no JVD, no lymphadenopathyCardiovascular: normal heart sounds, regular rate and rhythm, no rubRespiratory: decreased breath sounds, aerating well, no distressAbdomen: non-tender, normal bowel sounds, soft, no reboundExtremities: pitting edema, no gangreneNeuro/SALES ASSISTANT: alert, normal speech ResultsFindings/Data:Laboratory Tests 07/03/13 0454 1837 1612 1145 Chemistry Sodium (134 - 147 mEq/L) 143 Potassium (3.4 - 5.0 mEq/L) 4.2 Chloride (100 - 108 mEq/L) 105 Carbon Dioxide (21 - 33 mEq/l) 33 Anion Gap (0 - 20) 9 BUN (7 - 18 mg/dL) 43 H Creatinine (0.6 - 1.3 mg/dL) 1.6 H Glomerular Filtr Rate (70 - 80) 45.8 L Glucose (70 - 110 mg/dL) 187 H POC Glucose (70 - 110 MG/DL) 198 H 235 H 186 H 279 H Calcium (8.0 - 10.5 mg/dL) 8.5 Magnesium (1.80 - 2.40 mg/dL) 1.81 Laboratory Tests 03/134 Hematology WBC (4.5 - 11.0 x10 3/uL) 6.2 RBC (4.00 - 5.60 x10 6/uL) 3.43 L Hgb (12.5 - 16.9 g/dL) 10.4 L Hct (37.5 - 50.7 %) 31.9 L MCV (81.0 - 99.0 fL) 93.0 MCH (27.0 - 33.0 pg) 30.3 MCHC (33.0 - 37.0 g/dL) 32.6 L RDW (11.5 - 14.5 %) 14.8 H Plt Count (150 - 400 x10 3/uL) 169 MPV (7.0 - 9.0 fL) 10.6 H Neut % (Auto) (56.0 - 77.0 %) 85.4 H Lymph % (Auto) (14.0 - 32.0 %) 4.6 L [place] % (Auto) (4.8 - 9.0 %) 7.2 Eos % (Auto) (0.3 - 3.7 %) 1.8 Baso % (Auto) (0.0 - 2.0 %) 0.0 Neut # (Auto) (2.0 - 7.6 x10 3/uL) 5.33 Lymph # (Auto) (1.0 - 3.8 x10 3/uL) 0.29 L [place] # (Auto) (0.1 - 0.8 x10 3/uL) 0.45 Eos # (Auto) (0.0 - 0.2 x10 3/uL) 0.11 Baso # (Auto) (0.0 - 0.2 x10 3/uL) 0.00 Abs Immat Gran (auto) (0.00 - 0.03 x10 3/uL) 0.06 H Add Manual Diff NO Immature Gran % (0.0 - 2.0 %) 1.0 Nucleated RBC % (0 - 0 %) 0.0 Nucleated RBCs # (Man) (0.0 - 0.1 x10 3/uL) 0.00 Radiology data:Recent Impressions:RADIOLOGY - XR SWLW FUNC W/C V 03/12 5866 Report Impression - Status: SIGNED Entered: 03/12/2023 4125 IMPRESSION: Unremarkable swallowing study. The reader is referred to dedicated speech therapy report for details.Impression By: Wilbert Brown M.D. Diagnosis, Assessment PlanFree Text A P:1. JERAMY likely ATN secondary to IV contrast. Urine output improving. Sp NS at 75 cc/h for 1 L. Monitor respiratory status closely. Avoid nephrotoxic medications.creatinine improving at 3.1> 2.8>2.5 >1.9>1.5>1.6 today. Weight decreased to 84.8>83.7 kg today. Start Lasix 40 mg p.o. twice daily 2. COPD on room air currently. Pulmonary following 3. Coronary disease status post CABG postop care per CT surgery 4. Left carotid artery stenosis 5. Anemia PRBC as needed 6. Hypertension better controlled Okay to DC when okay with others 1. Left ventricle: The cavity size is normal. Wall thickness is normal. Systolic function is mildly reduced. The estimated ejection fraction is 40-44%. Doppler parameters are consistent with abnormal left ventricular relaxation (grade 1 diastolic dysfunction).2. Regional wall motion abnormality: Severe hypokinesis of the apical anterior, apical septal, apical lateral, and apical myocardium; hypokinesis of the basal-mid anteroseptal myocardium.3. Right ventricle: Systolic pressure is moderately increased.4. Mitral valve: There is mild regurgitation.5. Tricuspid valve: Estimated right ventricular systolic pressure is 46 mmHg. There is moderate regurgitation.6. Pericardium, extracardiac: A trivial pericardial effusion is identified.7. Inferior vena cava: The vessel is dilated. The respirophasic diameter changes are in the normal range (= 50%). Inferior vena cava diameter is 2.1 cm. on 03/04/23 at 1717 at 1157 RPT #:[id number] OF REPORTPRProgress dbsu5765-04-06T84:12:00G.XSXF05240404-0813ZWMcwhr able for patient sbwqLDWURMVSVVLZOI0110-77-02U80:57:34 [facility] 2023-03-13 09:50:00 [id number] ffbMjxdzOZgwPPymVuBm4GlrV6soX WznZ71fH6bgu+WP7pFhqcYQYeig9252-33-97C46:50:00 [facility])Rehab Progress NoteREPORT#:[id number] REPORT STATUS: SignedDATE:03/13/23 TIME: 0950 PATIENT: TEVIN NYE UNIT #: [id number]#: [id number] [address] AGE: 73 SEX: M ATTEND: Luci Villeda [facility] AUTHOR: Nicolasa Galeano PA-C * ALL edits or amendments must be made on the electronic/computer document * SubjectiveChief complaint:Pt seen and examined. He deneis acute complaints. Hoping to DC home today. Objective GeneralVS:Vital Signs: Date Time Temp Pulse Resp B/P B/P Pulse O2 O2 Flow FiO2 Mean Ox Delivery Rate 03/13 0642 98.1 69 20 126/60 0.0 95 Room air 03/13 0352 98.2 63 13 135/63 0.0 97 Nasal cannula 03/12 2320 97.9 65 13 151/70 0.0 97 Nasal cannula 03/12 2200 100 Nasal 2 cannula 03/12 1915 Nasal 2 cannula 03/12 1842 97.7 67 13 134/61 0.0 95 Room air 03/12 1611 69 26 132/60 87 99 07/05 1611 97.7 70 24 132/60 0.0 97 07/05 1144 63 27 101/55 75 98 07/05 1144 97.7 63 22 101/55 0.0 98 07/05 1001 98 Nasal 2 cannula PATIENT WEIGHT: Weight (lb): 184Weight (oz): 8.43Weight (kg): 83.700 Medications:Active Meds + DC'd Last 24 HrsFurosemide (LASIX 40 mg/4 mL INJECTION) 40 MG BID 9A 5P IV (DC) Metoprolol Tartrate (LOPRESSOR) 25 MG Q12HR PO Amlodipine Besylate (NORVASC) 10 MG DAILY PO Fluoxetine HCl (PROzac) 10 MG DAILY PO Insulin Human Lispro (HUMALOG) 0 AC HS SUBQ Ipratropium [place] (ATROVENT) 500 MCG RTQ2H PRN PRN INH Amiodarone HCl (CORDARONE) 400 MG Q12HR PO (CKD) Cyanocobalamin (Vitamin B-12 500 mcg tab) 500 MCG DAILY PO Ferrous Sulfate (FERROUS SULFATE) 325 MG DAILY PO Calcium Carbonate (TUMS CHEW TAB) 1,000 MG Q6H PRN PRN PO Bisacodyl (DULCOLAX) 10 MG ONCE PRN RECTAL Atorvastatin Calcium (LIPITOR) 40 MG 2100 PO Budesonide (PULMICORT RESPULES) 0.5 MG RTBID INH Formoterol Fumarate (PERFOROMIST) 20 MCG RTBID NEB Sterile Water (WATER FOR INJECTION) 1 ML ASDIR PRN IV Tamsulosin HCl (Flomax 0.4 mg) 0.8 MG PC BK PO Clopidogrel Bisulfate (Plavix) 75 MG DAILY PO Polyethylene Glycol (MIRALAX) 17 GM DAILY PO Amiodarone HCl (AMIODARONE HCL) 450 MG ASDIR IV (CKD) Dextrose/Water (D5%W NON-DEHP) 250 MLPantoprazole (PROTONIX) 40 MG DAILY@0600 PO Aspirin (ASPIRIN) 81 MG DAILY PO Docusate Sodium (COLACE) 100 MG BID PO Sennosides (Senna Lax 8.6 MG TABLET) 17.2 MG BEDTIME PO Acetaminophen (TYLENOL) 650 MG Q4H PRN PRN PO Acetaminophen (TYLENOL) 650 MG Q4H PRN PRN RECTAL Calcium Chloride (CALCIUM CHLORIDE) 1 GM ASDIR PRN IV Dextrose/Water (DEXTROSE 10% IN WATER) 125 ML ASDIR PRN IV (CKD) Dextrose/Water (DEXTROSE 10% IN WATER) 250 ML ASDIR PRN IV (CKD) Epinephrine (ADRENALIN CHLORIDE) 4 MG ASDIR IV Dextrose/Water (DEXTROSE 5% WATER) 246 MLGlucagon (GLUCAGON) 1 MG ASDIR PRN IM Magnesium Sulfate (MAGNESIUM SULFATE 4GM/SWFI 100ML) 100 ML ASDIR PRN IV Magnesium Sulfate (MAGNESIUM SULFATE 2GM/SWFI 50ML) 50 ML ASDIR PRN IV Magnesium Sulfate/Dextrose (MAGNESIUM SULFATE 1GM/D5W 100ML) 100 ML ASDIR PRN IV Nitroglycerin/Dextrose (NITROGLYCERIN 50,000MCG/D5W 250ML) 250 ML ASDIR IV Ondansetron HCl (ZOFRAN) 4 MG Q6H PRN PRN IV Potassium Chloride (KCL 20MEQ/SWFI 100ML) 100 ML ASDIR PRN IV Sodium Bicarbonate (SODIUM BICARBONATE) 50 MEQ ASDIR PRN IV Functional ProgressFunctional progress: Primary Diagnosis: S/P CABG x 4 Past Medical Hx: This is a pleasant 72 year old male with past medical history of hypertension, dyslipidemia, DM-2 (on insulin), former smoker (quit 2018), BPH, prostate CA s/p radiation, COPD (uses inhaler at home, no home oxygen), and PE (November 2022 on eliquis) who presented to [facility] with chest pain, dyspnea on exertion, and NSTEMI. Coronary angiogram was done and revealed severe multivessel coronary artery disease. Patient was then transferred to [facility] for CV surgery evaluation and need for CABG. Hx of Present Illness: PT STATED HE HAD CHEST CONGESTION PRIOR TO BEING Swallow Etiology ADMITTED INTO THE HOSPITAL. Functional Treatment Diagnosis: DYSPHAGIA Radiologist Present: Erlin Mayfield Referring Physician: Nicolasa Arenas PA-C Language Spoken: Mauritian Patient Consented to Treatment: Verbalized Subjective Evaluation: PT PLEASANT AND COOPERATIVE SITTING UPRIGHT IN CHAIR. RADIOLOGIST AND CONTACT CENTER PROFESSIONAL PRESENT. MBSS COMPLETED IN LATERAL VIEW. PT WAS ABLE TO FOLLOW DIRECTIONS DURING THE PROCEDURE. Precautions: Aspiration Current Diet: Regular IDDSI 0 Thin liquids Method of Intake: Oral Patient Complaints/Nursing Observations Drooling: No Pocketing of Food: No Wet Voice Quality: No Slow Rate on Intake: No Rapid Rate on Intake: No Painful Swallowing: No Food/Liquid Catching in Throat: No Difficulty Drinking from Cup/Straw: No Difficulty Swallowing Medications: No Multiple Swallows per Spoonful: No Coughing during PO Intake: No Decreased Intake: No Difficulty Removing Food from Utensil: No Tracheostomy: No Objective Quality of Cough: Weak Oral Care Status: Good Cognitive Status/Alertness: OX3 - Person/Place/Time Respiratory Status: Room Air Positionin Degrees Vocal Quality: Normal Viewing Planes: Lateral (Faces CONTACT CENTER PROFESSIONAL) Oral Motor Examination: Secretion Management: Within Functional Limits Dentition: Adequate Natural Buccal Facial: Within Functional Limit Oral Preparatory Stage: Labial Seal: Within Functional Limits Bolus control: Within Functional Limits Bolus Formation: Within Functional Limits Mastication: Within Functional Limits Oral Prep Cmt: ORAL PREPERATION WAS WNL'S. - Oral Phase - 1: Thin Liquids Observations: Within Functional Limits 2: Puree Solids Observations: Within Functional Limits 3: Mechanical Soft Observations: Within Functional Limits 6: Thin Liquids Observations: Within Functional Limits 7: Puree Solids Observations: Within Functional Limits 8: Mechanical Soft Observations: Within Functional Limits - Pharyngeal Phase - 1: Thin Liquids Observations: Within functional limits 2: Puree Solids Observations: Within functional limits 3: Mechanical Soft Observations: Within functional limits 6: Thin Liquids Observations: Within functional limits 7: Puree Solids Observations: Within functional limits 8: Mechanical Soft Observations: Within functional limits Pharyngeal Stage: Rotate to A/P View: No Physiology Labial Function: Within Normal Limits Lingual Function: Within Normal Limits Mandibular Function: Within Normal Limits Coordination of Swallow: Within Normal Limits Clinical Indicator of Aspiration: NO ASPIRATION OR PENETRATION DURING MBSS PROCEDURE. Laryngeal Elevation: Within Normal Limits Hyolaryngeal Excursion: Within Normal Limits Tongue Base Retraction: Within Normal Limits Epiglottic Inversion: Within Normal Limits Pharyngeal Constriction: Within Normal Limits Esophageal Screening Backflow/Reflux: No Clinical Impression: MBSS PROCEDURE WAS COMPLETED WITH THE PATIENT SEATED IN LATERAL VIEW. THIN LIQUIDS VIA A STRAW, PUREE, AND MECHANICAL SOFT CONSISTENCIES PRESENTED TO PT. NO DYSPHAGIA OBSERVED DURING MBSS PROCEDURE. PT'S SWALLOWING FUNCTION ANDSAFETY IS WITHIN NORMAL LIMITS PER PROCEDURE. NO ST SERVICES RECOMMENDED. RECOMMEND TO KEEP PT ON A REGULAR DIET AND THIN LIQUIDS. Diet Recommendations: REGULAR DIET AND THIN LIQUIDS. Swallow Precautions: Upright to 90 degrees Small Bites/Sips No Straws Allowed Alternate Bites/Sips Cue Swallow *2 Feeding Recommendations: Self Feeds Handoff to Nursing Staff: Handoff to Nurse ST Followup Services Recommended: No Rehabilitation Potential: Not Applicable Therapist recommended discharge needs: Home Speech Specific Discharge Plan: No ST interventions Reqd Plan of Care, Type: Speech Therapy Review Plan of Care: Yes POC- Document ST LT goals: Yes ST Treatment Details: Yes Enter ST Clarification Orders: Yes Document ST Charges: MBS/Fluoro Eval Swa 72117 If this is the patient's last treatment, this entry Time Started: 1355 Time Finished: 1415 Total Time(min): 0:20 Completed by: Delilah Franklin during evaluation: . Speech Therapy: Plan of Care ST Problem List: 9 Impaired Swallow Function Short Term Goals TARGET DATE GOAL MET 1: PT WILL BE ABLE TO SAFELY SWALLOW A REGULAR DIET AND THIN LIQUIDS W/O CLINICAL S/S OF ASPIRATION 2: PT WILL BE ABLE TO PARTICIPATE IN MBSS PROCEDURE IN ORDER TO DETERMINE THE SAFEST LEAST RESTRICTIVE DIET CONSISTENCY. . . [facility] Goals TARGET DATE GOAL MET 1: PT WILL BE ABLE TO SAFELY SWALLOW A REGULAR DIET AND THIN LIQUIDS WITHOUT CLICNIAL S/S OF ASPIRATION/PENETRATION. Plan of care: Speech Therapy Planned Interventions: ST for Swallow Function Treatment Plan: NONE Discharge Recommendations: D/C FROM ST SERVICES Physical ExamHEENT: anicteric, mucosal membranes moist, sclera clearNeck: supple, no JVDCardiovascular: regular rate rhythm, S1/F2Kirbozdkepn: on oxygen (1 liter NC ), aerating well, clear bilaterallyAbdomen: bowel sounds present, non-distended, soft, non-tenderSkin: incision (C/D/I ), dry, intact, no rashMusculoskeletal - general: Musculoskeletal - general: swelling (ble), joints normal, normal muscle mass,range of motion normal, strength testing normal, no atrophyNeuro/SALES ASSISTANT: alert, oriented X 3, normal speech, no motor deficits, no sensory deficits ResultsFindings/Data:Laboratory Tests: 03/13 03/13 03/12 03/12 03/12 0639 0454 1837 1612 1145Chemistry Sodium (134 - 147 mEq/L) 143 Potassium (3.4 - 5.0 mEq/L) 4.2 Chloride (100 - 108 mEq/L) 105 Carbon Dioxide (21 - 33 mEq/l) 33 Anion Gap (0 - 20) 9 BUN (7 - 18 mg/dL) 43 H Creatinine (0.6 - 1.3 mg/dL) 1.6 H Glomerular Filtr Rate (70 - 80) 45.8 L Glucose (70 - 110 mg/dL) 187 H POC Glucose (70 - 110 MG/DL) 198 H 235 H 186 H 279 H Calcium (8.0 - 10.5 mg/dL) 8.5 Magnesium (1.80 - 2.40 mg/dL) 1.81Hematology WBC (4.5 - 11.0 x10 3/uL) 6.2 RBC (4.00 - 5.60 x10 6/uL) 3.43 L Hgb (12.5 - 16.9 g/dL) 10.4 L Hct (37.5 - 50.7 %) 31.9 L MCV (81.0 - 99.0 fL) 93.0 MCH (27.0 - 33.0 pg) 30.3 MCHC (33.0 - 37.0 g/dL) 32.6 L RDW (11.5 - 14.5 %) 14.8 H Plt Count (150 - 400 x10 3/uL) 169 MPV (7.0 - 9.0 fL) 10.6 H Neut % (Auto) (56.0 - 77.0 %) 85.4 H Lymph % (Auto) (14.0 - 32.0 %) 4.6 L [place] % (Auto) (4.8 - 9.0 %) 7.2 Eos % (Auto) (0.3 - 3.7 %) 1.8 Baso % (Auto) (0.0 - 2.0 %) 0.0 Neut # (Auto) (2.0 - 7.6 x10 3/uL) 5.33 Lymph # (Auto) (1.0 - 3.8 x10 3/uL) 0.29 L [place] # (Auto) (0.1 - 0.8 x10 3/uL) 0.45 Eos # (Auto) (0.0 - 0.2 x10 3/uL) 0.11 Baso # (Auto) (0.0 - 0.2 x10 3/uL) 0.00 Abs Immat Gran (auto) (0.00 - 0.03 0.06 Hx10 3/uL) Add Manual Diff NO Immature Gran % (0.0 - 2.0 %) 1.0 Nucleated RBC % (0 - 0 %) 0.0 Nucleated RBCs # (Man) (0.0 - 0.1 0.00x10 3/uL) Radiology data:Recent Impressions:RADIOLOGY - XR SWLW FUNC W/C V 03/12 1356 Report Impression - Status: SIGNED Entered: 03/12/2023 1119 IMPRESSION: Unremarkable swallowing study. The reader is referred to dedicated speech therapy report for details.Impression By: Wilbert Brown M.D. Diagnosis, Assessment PlanFree Text A P:Pt is a 72 yr old male admitted with NSTEMI, Multivessel CAD, Acute COPD exacerbation/postop respiratory failure, recent pulmonary embolism on Eliquis, Hypertension, History of tobacco use, Obesity, Acute renal failure due to ATN contrast induced, S/P CABG X4 03/04/23. Plan: PT/OT consulted. He is noted to be MOD A with mobility and fatigues eaisily. He lives at home alone and given his multiple medical issues including COPD exacerbation/s/p CABG with AKF he would benefit from IRF for close daily MD FU and aggressive rehab. Monitor volume status and BP. Wean O2 along with Prednisone. Thank you for allowing us to particapte in angela care of the pt. Will continue to follow. 03/10:PT /OT to follow. Making progress. He is on 1 liter. Giving diuretics. Pt wanting to DC home with HH now. 03/12: Pt seen. On room air. AMbulating in his room. States he is hoping to DC home tomorrow. He will be DC home with his brother staying with him. No DME needed exceot possible home O2. Home with HH planning.03/13:Pt seen. No acute distress. He will be dc home with HH and with his brother staying with him. Encourage daily gait and mobility. Sternal precautions. Consultants: anesthesiology, cardiology, cardiovascular surgery, critical/osteopathy doctor, hospitalistRehab attestation:Face to face exam completed. Treatment plan discussed with patient. Meets continued stay criteria. Agree with interdisciplinary treatment plan. at 1839 RPT #:[id number] OF REPORTPRProgress [id number]:50:00G.[id number] able for patient [id number]:40:25 [facility]ACL 2023-03-13 07:21:00 [id number] xDE6X+FgCgsW+[id number]:21:00 [facility] ([facility])Cardiology Progress NoteREPORT#:[id number] REPORT STATUS: SignedDATE:03/13/23 TIME: 720 PATIENT: TEVIN NYE UNIT #: [id number]#: [id number] [address] AGE: 72 SEX: M ATTEND: Luci Villeda [facility] AUTHOR: Anuj Sylvester MD * ALL edits or amendments must be made on the electronic/computer document * SubjectiveChief complaint:Anxious but Better Objective GeneralVS/I O:24 hour I O ending at 0700: 03/13 0700 03/12 1900 Intake Total 1040 Output Total 2200 Balance -1160 Intake, Oral 1040 Number Voids 2 Output, Urine 2200 Patient 83.7 kg Weight Weight Standing scale Measurement Method Vital Signs: Date Time Temp Pulse Resp B/P B/P Pulse O2 O2 Flow FiO2 Mean Ox Delivery Rate 03/13 0642 98.1 69 20 126/60 0.0 95 Room air 03/13 0352 98.2 63 13 135/63 0.0 97 Nasal cannula 03/12 2320 97.9 65 13 151/70 0.0 97 Nasal cannula 03/12 2200 100 Nasal 2 cannula 03/12 1915 Nasal 2 cannula 03/12 1842 97.7 67 13 134/61 0.0 95 Room air 03/12 1611 69 26 132/60 87 99 03/12 1611 97.7 70 24 132/60 0.0 97 07/05 1144 63 27 101/55 75 98 07/ 1144 97.7 63 22 101/55 0.0 98 07/05 1001 98 Nasal 2 cannula 03/12 0832 69 132/60 86 93 / 0807 98.1 69 24 120/62 80.9 94 PATIENT WEIGHT: Weight (lb): 184Weight (oz): 8.43Weight (kg): 83.700 Medications:Active Meds + DC'd Last 24 HrsFurosemide (LASIX 40 mg/4 mL INJECTION) 40 MG BID 9A 5P IV (DC) Metoprolol Tartrate (LOPRESSOR) 25 MG Q12HR PO Amlodipine Besylate (NORVASC) 10 MG DAILY PO Fluoxetine HCl (PROzac) 10 MG DAILY PO Insulin Human Lispro (HUMALOG) 0 AC HS SUBQ Ipratropium [place] (ATROVENT) 500 MCG RTQ2H PRN PRN INH Amiodarone HCl (CORDARONE) 400 MG Q12HR PO (CKD) Cyanocobalamin (Vitamin B-12 500 mcg tab) 500 MCG DAILY PO Ferrous Sulfate (FERROUS SULFATE) 325 MG DAILY PO Calcium Carbonate (TUMS CHEW TAB) 1,000 MG Q6H PRN PRN PO Bisacodyl (DULCOLAX) 10 MG ONCE PRN RECTAL Atorvastatin Calcium (LIPITOR) 40 MG 2100 PO Budesonide (PULMICORT RESPULES) 0.5 MG RTBID INH Formoterol Fumarate (PERFOROMIST) 20 MCG RTBID NEB Sterile Water (WATER FOR INJECTION) 1 ML ASDIR PRN IV Tamsulosin HCl (Flomax 0.4 mg) 0.8 MG PC BK PO Clopidogrel Bisulfate (Plavix) 75 MG DAILY PO Polyethylene Glycol (MIRALAX) 17 GM DAILY PO Amiodarone HCl (AMIODARONE HCL) 450 MG ASDIR IV (CKD) Dextrose/Water (D5%W NON-DEHP) 250 MLPantoprazole (PROTONIX) 40 MG DAILY@0600 PO Aspirin (ASPIRIN) 81 MG DAILY PO Docusate Sodium (COLACE) 100 MG BID PO Sennosides (Senna Lax 8.6 MG TABLET) 17.2 MG BEDTIME PO Acetaminophen (TYLENOL) 650 MG Q4H PRN PRN PO Acetaminophen (TYLENOL) 650 MG Q4H PRN PRN RECTAL Calcium Chloride (CALCIUM CHLORIDE) 1 GM ASDIR PRN IV Dextrose/Water (DEXTROSE 10% IN WATER) 125 ML ASDIR PRN IV (CKD) Dextrose/Water (DEXTROSE 10% IN WATER) 250 ML ASDIR PRN IV (CKD) Epinephrine (ADRENALIN CHLORIDE) 4 MG ASDIR IV Dextrose/Water (DEXTROSE 5% WATER) 246 MLGlucagon (GLUCAGON) 1 MG ASDIR PRN IM Magnesium Sulfate (MAGNESIUM SULFATE 4GM/SWFI 100ML) 100 ML ASDIR PRN IV Magnesium Sulfate (MAGNESIUM SULFATE 2GM/SWFI 50ML) 50 ML ASDIR PRN IV Magnesium Sulfate/Dextrose (MAGNESIUM SULFATE 1GM/D5W 100ML) 100 ML ASDIR PRN IV Nitroglycerin/Dextrose (NITROGLYCERIN 50,000MCG/D5W 250ML) 250 ML ASDIR IV Ondansetron HCl (ZOFRAN) 4 MG Q6H PRN PRN IV Potassium Chloride (KCL 20MEQ/SWFI 100ML) 100 ML ASDIR PRN IV Sodium Bicarbonate (SODIUM BICARBONATE) 50 MEQ ASDIR PRN IV Physical ExamGeneral appearance: alert, awakeNeck: full range of motion, non-tender, normal thyroid, supple/no meningismus, no bruit/NL carotids, no JVD, no lymphadenopathy, no masses or swellingCardiovascular: CV assessment: regular rate and rhythmRespiratory: decreased breath sounds, clear to auscultationAbdomen: non-tender, normal bowel sounds, no distention, no guarding, no mass/organomegaly, no pulsatile mass, no reboundUpper extremity: UE assessment: normal capillary refill, no edemaLower extremity: LE assessment: normal capillary refill, no edema Diagnosis, Assessment PlanConsultants: anesthesiology, cardiology, cardiovascular surgery, critical/osteopathy doctor, hospitalist Free Text DxA P NotesFree Text DxA P Notes:1- Severe COPD with exacerbation: As per Pulm2- Recent pulmonary embolism on Eliquis3- NSTEMI/Multivessel coronary artery disease: S/P CBBG, on tele and doing fair5- Hypertension" No wbetter conrol and on Norvasc 10mg and Metoprolol to 50 BID6- History of tobacco use7. Wide complex tachy: Was asymptomatic, no recurrence last night and suggests AFIB/SVT with aberrancy, now resolved. On po amio8. Acute on chronic renal failure at 0722 RPT #:[id number] OF REPORTPRProgress [id number]:21:00G.[id number] able for patient [id number]:22:13 [facility] 2023-03-13 05:16:00 [id number] [id number]:16:00 [facility])Cardiothoracic Surgery ProgREPORT#:[id number] REPORT STATUS: SignedDATE:03/13/23 TIME: 0516 PATIENT: TEVIN NYE UNIT #: [id number]#: [id number] [address] [birth year] AGE: 73 SEX: M ATTEND: Luci Villeda [facility] AUTHOR: Evon Andrew Physic * ALL edits or amendments must be made on the electronic/computer document * GeneralPost-op: day 9Status post:03/04/23 CABG x 4 (MCCORMICK-LAD,SVG-Renea, SVG-OM, SVG-PDA) ALAA GENAROH (LGSV) Posterior pericardiotomy SubjectiveChief complaint:chest painFollow up CABG Review of SystemsConstitutional:Denies: chills, fatigue, generalized weakness. Skin:Denies: abrasion, bruising, laceration. Allergy/Immun:Denies: allergic reaction, anaphylaxis, rhinorrhea. Eyes:Denies: redness, visual loss/blurred, eye pain. ENT:Denies: ear ringing, throat swelling, toothache. Respiratory:Denies: [place] (dyspnea on exertion), pneumonia, SOB. Cardiovascular:Denies: chest pain, edema, orthopnea. GI:Denies: abdominal pain, anorexia, melena, nausea. :Denies: dysuria, flank pain. Musculoskeletal:Denies: arthritis, extremity pain, lumbar pain. Heme:Denies: adenopathy, bleeding, petechiae. Endocrine:Denies: cold intolerance, polydipsia, weight gain. Neuro:Denies: confusion, dizziness, seizure, syncope. All systems rev neg: except as marked Objective GeneralVS/I OLast Documented: Result Date Time Pulse Ox 97 03/13 352 B/P 135/63 03/13 352 B/P Mean 0.0 03/13 352 O2 Delivery Nasal cannula 03/13 352 Temp 98.2 03/13 352 Pulse 63 03/13 352 Resp 13 03/13 352 O2 Flow Rate 2 03/12 2200 FiO2 28 03/11 2131 24 hour I O ending at 0700: 03/13 0700 03/12 1900 Intake Total 800 Output Total 1850 Balance -1050 Intake, Oral 800 Number Voids 2 Output, Urine 1850 Patient 83.7 kg Weight Weight Standing scale Measurement Method PATIENT WEIGHT: Weight (lb): 184Weight (oz): 8.43Weight (kg): 83.700 Physical ExamGeneral appearance: alert, awake, orientedWound/incision: Location:sternal Site condition: edges approximated, incision intactHEENT: anicteric, mucosal membranes moist, pupils reactive to lightNeck: full range of motion, non-tenderCardiovascular: irregular rhythm, normal heart sounds, regular rate rhythmRespiratory: decreased breath sounds, aerating well, symmetric expansionAbdomen: soft, non-tenderGenitourinary: no bladder distentionExtremities: dry, moves allMusculoskeletal: full range of motionNeuro/SALES ASSISTANT: alert, oriented X 3Skin: dry, intactPsychiatry: normal affect, normal mood Current MedicationsMedications:Active Meds + DC'd Last 24 HrsFurosemide (LASIX) 40 MG BID 9A 5P PO Furosemide (LASIX 40 mg/4 mL INJECTION) 40 MG BID 9A 5P IV (DC) Metoprolol Tartrate (LOPRESSOR) 25 MG Q12HR PO Amlodipine Besylate (NORVASC) 10 MG DAILY PO Fluoxetine HCl (PROzac) 10 MG DAILY PO Insulin Human Lispro (HUMALOG) 0 AC HS SUBQ Ipratropium [place] (ATROVENT) 500 MCG RTQ2H PRN PRN INH Amiodarone HCl (CORDARONE) 400 MG Q12HR PO (CKD) Cyanocobalamin (Vitamin B-12 500 mcg tab) 500 MCG DAILY PO Ferrous Sulfate (FERROUS SULFATE) 325 MG DAILY PO Calcium Carbonate (TUMS CHEW TAB) 1,000 MG Q6H PRN PRN PO Bisacodyl (DULCOLAX) 10 MG ONCE PRN RECTAL Atorvastatin Calcium (LIPITOR) 40 MG 2100 PO Budesonide (PULMICORT RESPULES) 0.5 MG RTBID INH Formoterol Fumarate (PERFOROMIST) 20 MCG RTBID NEB Sterile Water (WATER FOR INJECTION) 1 ML ASDIR PRN IV Tamsulosin HCl (Flomax 0.4 mg) 0.8 MG PC BK PO Clopidogrel Bisulfate (Plavix) 75 MG DAILY PO Polyethylene Glycol (MIRALAX) 17 GM DAILY PO Amiodarone HCl (AMIODARONE HCL) 450 MG ASDIR IV (CKD) Dextrose/Water (D5%W NON-DEHP) 250 MLPantoprazole (PROTONIX) 40 MG DAILY@0600 PO Aspirin (ASPIRIN) 81 MG DAILY PO Docusate Sodium (COLACE) 100 MG BID PO Sennosides (Senna Lax 8.6 MG TABLET) 17.2 MG BEDTIME PO Acetaminophen (TYLENOL) 650 MG Q4H PRN PRN PO Acetaminophen (TYLENOL) 650 MG Q4H PRN PRN RECTAL Calcium Chloride (CALCIUM CHLORIDE) 1 GM ASDIR PRN IV Dextrose/Water (DEXTROSE 10% IN WATER) 125 ML ASDIR PRN IV (CKD) Dextrose/Water (DEXTROSE 10% IN WATER) 250 ML ASDIR PRN IV (CKD) Epinephrine (ADRENALIN CHLORIDE) 4 MG ASDIR IV Dextrose/Water (DEXTROSE 5% WATER) 246 MLGlucagon (GLUCAGON) 1 MG ASDIR PRN IM Magnesium Sulfate (MAGNESIUM SULFATE 4GM/SWFI 100ML) 100 ML ASDIR PRN IV Magnesium Sulfate (MAGNESIUM SULFATE 2GM/SWFI 50ML) 50 ML ASDIR PRN IV Magnesium Sulfate/Dextrose (MAGNESIUM SULFATE 1GM/D5W 100ML) 100 ML ASDIR PRN IV Nitroglycerin/Dextrose (NITROGLYCERIN 50,000MCG/D5W 250ML) 250 ML ASDIR IV Ondansetron HCl (ZOFRAN) 4 MG Q6H PRN PRN IV Potassium Chloride (KCL 20MEQ/SWFI 100ML) 100 ML ASDIR PRN IV Sodium Bicarbonate (SODIUM BICARBONATE) 50 MEQ ASDIR PRN IV ResultsFindings/Data:Laboratory Tests 03/13 03/13 03/13 03/12 03/12 1104 0639 0454 1837 1612 Chemistry Sodium (134 - 147 mEq/L) 143 Potassium (3.4 - 5.0 mEq/L) 4.2 Chloride (100 - 108 mEq/L) 105 Carbon Dioxide (21 - 33 mEq/l) 33 Anion Gap (0 - 20) 9 BUN (7 - 18 mg/dL) 43 H Creatinine (0.6 - 1.3 mg/dL) 1.6 H Glomerular Filtr Rate (70 - 80) 45.8 L Glucose (70 - 110 mg/dL) 187 H POC Glucose (70 - 110 MG/DL) 307 H 198 H 235 H 186 H Calcium (8.0 - 10.5 mg/dL) 8.5 Magnesium (1.80 - 2.40 mg/dL) 1.81 Laboratory Tests 03/13 0454 Hematology WBC (4.5 - 11.0 x10 3/uL) 6.2 RBC (4.00 - 5.60 x10 6/uL) 3.43 L Hgb (12.5 - 16.9 g/dL) 10.4 L Hct (37.5 - 50.7 %) 31.9 L MCV (81.0 - 99.0 fL) 93.0 MCH (27.0 - 33.0 pg) 30.3 MCHC (33.0 - 37.0 g/dL) 32.6 L RDW (11.5 - 14.5 %) 14.8 H Plt Count (150 - 400 x10 3/uL) 169 MPV (7.0 - 9.0 fL) 10.6 H Neut % (Auto) (56.0 - 77.0 %) 85.4 H Lymph % (Auto) (14.0 - 32.0 %) 4.6 L [place] % (Auto) (4.8 - 9.0 %) 7.2 Eos % (Auto) (0.3 - 3.7 %) 1.8 Baso % (Auto) (0.0 - 2.0 %) 0.0 Neut # (Auto) (2.0 - 7.6 x10 3/uL) 5.33 Lymph # (Auto) (1.0 - 3.8 x10 3/uL) 0.29 L [place] # (Auto) (0.1 - 0.8 x10 3/uL) 0.45 Eos # (Auto) (0.0 - 0.2 x10 3/uL) 0.11 Baso # (Auto) (0.0 - 0.2 x10 3/uL) 0.00 Abs Immat Gran (auto) (0.00 - 0.03 x10 3/uL) 0.06 H Add Manual Diff NO Immature Gran % (0.0 - 2.0 %) 1.0 Nucleated RBC % (0 - 0 %) 0.0 Nucleated RBCs # (Man) (0.0 - 0.1 x10 3/uL) 0.00 Radiology data:Recent Impressions:[facility]C V 03/12 1356 Report Impression - Status: SIGNED Entered: 03/12/2023 3561 IMPRESSION: Unremarkable swallowing study. The reader is referred to dedicated speech therapy report for details.Impression By: Wilbert Brown M.D. Results: labs reviewed, vital signs stable, rythm personally rev'd, x-ray personally reviewed, current med profile rev'd Diagnosis, Assessment PlanHospital course to date:This is a pleasant 72 year old male with past medical history of hypertension, dyslipidemia, DM-2 (on insulin), former smoker (quit 2018), BPH, prostate CA s/pradiation, COPD (uses inhaler at home, no home oxygen), and PE (November 2022 on eliquis) who presented to [facility] with chest pain, dyspnea on exertion, and NSTEMI. Coronary angiogram was done and revealed severe multivessel coronary artery disease. Patient was then transferred to [facility] for CV surgery evaluation and need for CABG. PLAN Admit patient to CVICUInitiate preop workupIncentive spirometer teachingCarotid ultrasoundBLE vein mappingCT chest non-contrastUA to r/o UTIEchocardiogramHeparin and Nitro dripConsult pulmonary, cardiology, and intensivistCoronary angiogram reviewed and patient will benefit from surgical revascularizaton. The surgery, risks involved, STS score, benefits, complications and alternatives were explained to the patient and his brother. He acknowledged understanding and is willing to proceed. We will tentatively schedule him for surgery tomorrow morning.Further recommendations to follow. 03/04/23CABG x 4 (MCCORMICK-LAD,SVG-Renea, SVG-OM, SVG-PDA)ALAAEVH (LGSV)Posterior pericardiotomy 03/05/23POD 1Patient alert, awake, and orientedLabs and CXR reviewedOn bipap 12/5 40%, wean off as toleratedTrend abgsWean off levo as toleratedKeep both chest tubesMonitor strict I Os and renal functionPT/OT, ambulate, OOB in chairDVT ppx with SCDsMonitor patient closely in CVICU 03/06/23POD 2Patient in stable conditionCXR and labs reviewedHGB 6.6, transfuse 2 units PRBCDiscontinue dopamine dripEchocardiogramDiscontinue both chest tubesCR increasing, renal following, UOP 25 cc/hrOOB in chairMonitor closely in CVICU 03/07/23POD 3Patient alert, awake, and oriented, no complaintsLabs and CXR reviewedOn 2l nasal cannula, encourage I-S useHgb stable 10.1Discontinue left pleural chest tubeOn amio drip 0.5Monitor renal function, Cr 2.9Consult rehabAmbulate patient with PT/OTKeep patient in CVICU 03/08/23POD 4Patient recovering wellCXR and labs reviewedWean oxygen off as toleratedNSR, off amio drip, continue poRenal following, CR improving now 2.5Encourage mobilization and I-S useKeep in CVICU 03/09/23POD 5Patient resting comfortable, out of bed in reclinerOn room airEncourage I-S useDiurese with lasix, CR 1.9Monitor strict I OsRehab consultedKeep central line and foleyPT/OTMonitor patient in CVICU 03/10/23POD [id number]: On room air 97%, Encourage IS, Deep Breathing, CXR reviewed Cardiac: Remains sinus rhythm, pacing wires on standbyGI: + BM, Continue Bowel regimenGU: DC Valencia todayUO:1450, diuresing well.Continue PT/OTDisposition: Rehab versus homeDVT prophylaxisLabs reveiwed- replace electrolytes as neededPatient seen and examined by Dr. Villeda. Plan of care discussed with multidisciplinary teamDC neck line 03/11/23POD [id number] of feeling anxious. Denies chest pains, denies shortness of breathRenal following started on Lasix 40 twice dailyCardiac: Remains sinus rhythm, pacing wires DC'd Will obtain echoRespiratory: On room airPatient declines inpatient rehab, patient states he will go home with his brotherWill order home health with case management, patient states he will go home withhis brother for supportPatient was seen and examined by Dr. Heredia home ProzacContinue PT OT, out of bedNeeds more diuresing, renal followingHome soon 03/12/23POD [id number] resting comfortable. On 2 L nasal cannulaPacing wires DC'd yesterday. Echo shows no pericardial effusionDVT studies completed this morning. No evidence for DVTChest x-ray reviewedRespiratory: Still requiring 2 L nasal cannula, Wean as tolerated. Cardiac: Remains sinus rhythmGI:+ BM. Eating wellGU: Voiding well. 800 urine outputRenal following- Recieving Lasix 40 mg IV twice daily monitor creatinineLabs reviewed.Patient continues diuresing.Pulmonary followingCoutninue out of bed, walking twice daily today. discussed with nurse. 03/13/23POD 1ZIRl7Elapapd resting comfortable. On 2 L nasal cannulaPacing wires DC'd Echo shows no pericardial effusionDVT studies completed No evidence for DVTChest x-ray reviewedRespiratory: Still requiring 2 L nasal cannula, Patient did walk test with nurse, Desat to 81%, averages 87-90%Cardiac: Remains sinus rhythmGI:+ BM. Eating wellGU: Voiding well. 1850 urine outputRenal following- Recieving Lasix 40 mg IV twice daily Creatine stable 1.6Labs reviewed.Patient continues diuresing.Pulmonary followingHome health ordered. - patient will need home O2 Consultants: anesthesiology, cardiology, cardiovascular surgery, critical/osteopathy doctor, hospitalist at 1406 at 0646 RPT #:[id number] OF REPORTPRProgress [id number]:16:00G.[id number] able for patient vozqZSLQADZRUPDAPW6028-31-18Q40:09:35 HCACL 2023-03-12 15:55:00 [id number]+dSqiQCnLgFYfnRCwatxk DQMEXTqzC6AYalbRMhvzpkmJadu1827-84-46E59:55:00 [facility]Ne[facility] Progress NoteREPORT#:[id number] REPORT STATUS: SignedDATE:03/12/23 TIME: 1555 PATIENT: TEVIN NYE UNIT #: [id number]#: [id number] [address] [birth year] AGE: 72 SEX: M ATTEND: Luci Villeda MDADM AUTHOR: Glendy Paz MD * ALL edits or amendments must be made on the electronic/computer document * SubjectiveComments:Doing well Objective GeneralVS/I O:Vital Signs: Date Time Temp Pulse Resp B/P B/P Pulse O2 O2 Flow FiO2 Mean Ox Delivery Rate 03/12 1144 97.7 63 22 101/55 0.0 98 03/12 1001 98 Nasal 2 cannula 03/12 0807 98.1 69 24 120/62 80.9 94 03/12 0700 Nasal 2 cannula 03/12 0403 98.2 63 14 148/63 0.0 98 Nasal cannula 03/11 2334 97.3 61 14 129/61 0.0 98 Nasal cannula 03/11 2131 96 Nasal 2 28 cannula 03/11 2100 Nasal 2 cannula 03/11 1933 97.5 72 14 137/64 0.0 98 Nasal cannula 24 hour I O ending at 0700: 03/12 0700 03/11 1900 Intake Total 350 Output Total 2 800 Balance 348 -800 Intake, Oral 350 Number 2 2 Bowel Movements Output, Urine 800 Output, 2 Urine/Stool Mix Patient 84.8 kg Weight Weight Standing scale Measurement Method PATIENT WEIGHT: Weight (lb): 186Weight (oz): 15.23Weight (kg): 84.800 MedicationsActive Meds + DC'd Last 24 HrsHaloperidol (HALDOL) 2.5 MG ONCE ONE PO (DC) Furosemide (LASIX 40 mg/4 mL INJECTION) 40 MG BID 9A 5P IV Metoprolol Tartrate (LOPRESSOR) 25 MG Q12HR PO Amlodipine Besylate (NORVASC) 10 MG DAILY PO Fluoxetine HCl (PROzac) 10 MG DAILY PO Insulin Human Lispro (HUMALOG) 0 AC HS SUBQ Ipratropium [place] (ATROVENT) 500 MCG RTQ2H PRN PRN INH Amiodarone HCl (CORDARONE) 400 MG Q12HR PO (CKD) Cyanocobalamin (Vitamin B-12 500 mcg tab) 500 MCG DAILY PO Ferrous Sulfate (FERROUS SULFATE) 325 MG DAILY PO Calcium Carbonate (TUMS CHEW TAB) 1,000 MG Q6H PRN PRN PO Bisacodyl (DULCOLAX) 10 MG ONCE PRN RECTAL Atorvastatin Calcium (LIPITOR) 40 MG 2100 PO Budesonide (PULMICORT RESPULES) 0.5 MG RTBID INH Formoterol Fumarate (PERFOROMIST) 20 MCG RTBID NEB Sterile Water (WATER FOR INJECTION) 1 ML ASDIR PRN IV Tamsulosin HCl (Flomax 0.4 mg) 0.8 MG PC BK PO Clopidogrel Bisulfate (Plavix) 75 MG DAILY PO Polyethylene Glycol (MIRALAX) 17 GM DAILY PO Amiodarone HCl (AMIODARONE HCL) 450 MG ASDIR IV (CKD) Dextrose/Water (D5%W NON-DEHP) 250 MLPantoprazole (PROTONIX) 40 MG DAILY@0600 PO Aspirin (ASPIRIN) 81 MG DAILY PO Docusate Sodium (COLACE) 100 MG BID PO Sennosides (Senna Lax 8.6 MG TABLET) 17.2 MG BEDTIME PO Acetaminophen (TYLENOL) 650 MG Q4H PRN PRN PO Acetaminophen (TYLENOL) 650 MG Q4H PRN PRN RECTAL Calcium Chloride (CALCIUM CHLORIDE) 1 GM ASDIR PRN IV Dextrose/Water (DEXTROSE 10% IN WATER) 125 ML ASDIR PRN IV (CKD) Dextrose/Water (DEXTROSE 10% IN WATER) 250 ML ASDIR PRN IV (CKD) Epinephrine (ADRENALIN CHLORIDE) 4 MG ASDIR IV Dextrose/Water (DEXTROSE 5% WATER) 246 MLGlucagon (GLUCAGON) 1 MG ASDIR PRN IM Magnesium Sulfate (MAGNESIUM SULFATE 4GM/SWFI 100ML) 100 ML ASDIR PRN IV Magnesium Sulfate (MAGNESIUM SULFATE 2GM/SWFI 50ML) 50 ML ASDIR PRN IV Magnesium Sulfate/Dextrose (MAGNESIUM SULFATE 1GM/D5W 100ML) 100 ML ASDIR PRN IV Nitroglycerin/Dextrose (NITROGLYCERIN 50,000MCG/D5W 250ML) 250 ML ASDIR IV Ondansetron HCl (ZOFRAN) 4 MG Q6H PRN PRN IV Potassium Chloride (KCL 20MEQ/SWFI 100ML) 100 ML ASDIR PRN IV Sodium Bicarbonate (SODIUM BICARBONATE) 50 MEQ ASDIR PRN IV Physical ExamGeneral appearance: alert, awake, orientedHead/eyes: atraumatic, normocephalic, PERRLANeck: no JVD, no lymphadenopathyCardiovascular: normal heart sounds, regular rate and rhythm, no rubRespiratory: decreased breath sounds, aerating well, no distressAbdomen: non-tender, normal bowel sounds, soft, no reboundGenitourinary: urinary catheter, urineExtremities: pitting edema, no gangreneNeuro/SALES ASSISTANT: alert, normal speech ResultsFindings/Data:Laboratory Tests 03/12 03/12 03/12 03/11 1145 0808 0312 1926 Chemistry Sodium (134 - 147 mEq/L) 144 Potassium (3.4 - 5.0 mEq/L) 4.5 Chloride (100 - 108 mEq/L) 106 Carbon Dioxide (21 - 33 mEq/l) 33 Anion Gap (0 - 20) 9 BUN (7 - 18 mg/dL) 45 H Creatinine (0.6 - 1.3 mg/dL) 1.6 H Glomerular Filtr Rate (70 - 80) 45.8 L Glucose (70 - 110 mg/dL) 182 H POC Glucose (70 - 110 MG/DL) 279 H 204 H 136 H Calcium (8.0 - 10.5 mg/dL) 8.3 Magnesium (1.80 - 2.40 mg/dL) 1.95 Laboratory Tests 03/12 0312 Hematology WBC (4.5 - 11.0 x10 3/uL) 5.8 RBC (4.00 - 5.60 x10 6/uL) 3.59 L Hgb (12.5 - 16.9 g/dL) 11.2 L Hct (37.5 - 50.7 %) 32.9 L MCV (81.0 - 99.0 fL) 91.6 MCH (27.0 - 33.0 pg) 31.2 MCHC (33.0 - 37.0 g/dL) 34.0 RDW (11.5 - 14.5 %) 14.9 H Plt Count (150 - 400 x10 3/uL) 193 MPV (7.0 - 9.0 fL) 11.3 H Neut % (Auto) (56.0 - 77.0 %) 82.0 H Lymph % (Auto) (14.0 - 32.0 %) 5.8 L [place] % (Auto) (4.8 - 9.0 %) 9.3 H Eos % (Auto) (0.3 - 3.7 %) 1.7 Baso % (Auto) (0.0 - 2.0 %) 0.0 Neut # (Auto) (2.0 - 7.6 x10 3/uL) 4.78 Lymph # (Auto) (1.0 - 3.8 x10 3/uL) 0.34 L [place] # (Auto) (0.1 - 0.8 x10 3/uL) 0.54 Eos # (Auto) (0.0 - 0.2 x10 3/uL) 0.10 Baso # (Auto) (0.0 - 0.2 x10 3/uL) 0.00 Abs Immat Gran (auto) (0.00 - 0.03 x10 3/uL) 0.07 H Add Manual Diff NO Immature Gran % (0.0 - 2.0 %) 1.2 Nucleated RBC % (0 - 0 %) 0.0 Nucleated RBCs # (Man) (0.0 - 0.1 x10 3/uL) 0.00 Radiology data:Recent Impressions:RADIOLOGY - XR CHEST 1 V 03/12 0640 Report Impression - Status: SIGNED Entered: 03/12/2023 4140 IMPRESSION: 1. Mild enlarged cardiac silhouette. 2. Small bilateral pleural effusions. 3. Ymul-lc-dxfpvmnr pulmonary edema versus infiltrates. Impression By: [email or web address] - David Espinal M.D.ULTRASOUND - DUP VEIN SCOTTY 03/12 0702 Report Impression - Status: SIGNED Entered: 03/12/2023 0719 IMPRESSION: No evidence of deep venous thrombosis in either lower extremity. Impression By: [email or web address] - You Moore M.D.RADIOLOGY - XR SWLW FUNC W/C V 03/12 1356 Report Impression - Status: SIGNED Entered: 03/12/2023 1425 IMPRESSION: Unremarkable swallowing study. The reader is referred to dedicated speech therapy report for details.Impression By: Wilbert Brown M.D. Diagnosis, Assessment PlanFree Text A P:1. JERAMY likely ATN secondary to IV contrast. Urine output improving. Sp NS at 75 cc/h for 1 L. Monitor respiratory status closely. Avoid nephrotoxic medications.creatinine improving at 3.1> 2.8>2.5 >1.9>1.5>1.6 today. Will continue with Lasix 40 mg IV bid. Weight decreased to 84.8 kg 2. COPD on room air currently. Pulmonary following 3. Coronary disease status post CABG postop care per CT surgery 4. Left carotid artery stenosis 5. Anemia PRBC as needed 6. Hypertension better controlled 1. Left ventricle: The cavity size is normal. Wall thickness is normal. Systolic function is mildly reduced. The estimated ejection fraction is 40-44%. Doppler parameters are consistent with abnormal left ventricular relaxation (grade 1 diastolic dysfunction).2. Regional wall motion abnormality: Severe hypokinesis of the apical anterior, apical septal, apical lateral, and apical myocardium; hypokinesis of the basal-mid anteroseptal myocardium.3. Right ventricle: Systolic pressure is moderately increased.4. Mitral valve: There is mild regurgitation.5. Tricuspid valve: Estimated right ventricular systolic pressure is 46 mmHg. There is moderate regurgitation.6. Pericardium, extracardiac: A trivial pericardial effusion is identified.7. Inferior vena cava: The vessel is dilated. The respirophasic diameter changes are in the normal range (= 50%). Inferior vena cava diameter is 2.1 cm. on 03/04/23 at 1717Consultants: anesthesiology, cardiology, cardiovascular surgery, critical/osteopathy doctor, hospitalist at 1720 RPT #:[id number] OF REPORTPRProgress [id number]:55:00G.[id number] able for patient jysuQBSYPPDBALECRT9677-76-39Z78:59:20 HCACL 2023-03-12 14:19:00 [id number] [id number] KgfIPclM2/Z/Algc3fW+zRqRebQ0306-79-66E22:19:00 [facility] ([facility])Rehab Progress NoteREPORT#:[id number] REPORT STATUS: SignedDATE:03/12/23 TIME: 1419 PATIENT: TEVIN NYE UNIT #: [id number]#: [id number] [address] [birth year] AGE: 72 SEX: M ATTEND: Luci Villeda [facility] AUTHOR: Nicolasa Galeano PA-C * ALL edits or amendments must be made on the electronic/computer document * SubjectiveChief complaint:Pt seen and examined. Seen sitting inthe bedside chair. No acute distress. [place]. He has been up and ambulating in his room. Objective GeneralVS:Vital Signs: Date Time Temp Pulse Resp B/P B/P Pulse O2 O2 Flow FiO2 Mean Ox Delivery Rate 03/12 1144 97.7 63 22 101/55 0.0 98 03/12 1001 98 Nasal 2 cannula 03/12 0807 98.1 69 24 120/62 80.9 94 07/ 0700 Nasal 2 cannula 03/12 0403 98.2 63 14 148/63 0.0 98 Nasal cannula 03/11 2334 97.3 61 14 129/61 0.0 98 Nasal cannula 03/11 2131 96 Nasal 2 28 cannula 03/11 2100 Nasal 2 cannula 03/11 1933 97.5 72 14 137/64 0.0 98 Nasal cannula PATIENT WEIGHT: Weight (lb): 186Weight (oz): 15.23Weight (kg): 84.800 Medications:Active Meds + DC'd Last 24 HrsHaloperidol (HALDOL) 2.5 MG ONCE ONE PO (DC) Furosemide (LASIX 40 mg/4 mL INJECTION) 40 MG BID 9A 5P IV Metoprolol Tartrate (LOPRESSOR) 25 MG Q12HR PO Amlodipine Besylate (NORVASC) 10 MG DAILY PO Fluoxetine HCl (PROzac) 10 MG DAILY PO Insulin Human Lispro (HUMALOG) 0 AC HS SUBQ Ipratropium [place] (ATROVENT) 500 MCG RTQ2H PRN PRN INH Amiodarone HCl (CORDARONE) 400 MG Q12HR PO (CKD) Cyanocobalamin (Vitamin B-12 500 mcg tab) 500 MCG DAILY PO Ferrous Sulfate (FERROUS SULFATE) 325 MG DAILY PO Calcium Carbonate (TUMS CHEW TAB) 1,000 MG Q6H PRN PRN PO Bisacodyl (DULCOLAX) 10 MG ONCE PRN RECTAL Atorvastatin Calcium (LIPITOR) 40 MG 2100 PO Budesonide (PULMICORT RESPULES) 0.5 MG RTBID INH Formoterol Fumarate (PERFOROMIST) 20 MCG RTBID NEB Sterile Water (WATER FOR INJECTION) 1 ML ASDIR PRN IV Tamsulosin HCl (Flomax 0.4 mg) 0.8 MG PC BK PO Clopidogrel Bisulfate (Plavix) 75 MG DAILY PO Polyethylene Glycol (MIRALAX) 17 GM DAILY PO Amiodarone HCl (AMIODARONE HCL) 450 MG ASDIR IV (CKD) Dextrose/Water (D5%W NON-DEHP) 250 MLPantoprazole (PROTONIX) 40 MG DAILY@0600 PO Aspirin (ASPIRIN) 81 MG DAILY PO Docusate Sodium (COLACE) 100 MG BID PO Sennosides (Senna Lax 8.6 MG TABLET) 17.2 MG BEDTIME PO Acetaminophen (TYLENOL) 650 MG Q4H PRN PRN PO Acetaminophen (TYLENOL) 650 MG Q4H PRN PRN RECTAL Calcium Chloride (CALCIUM CHLORIDE) 1 GM ASDIR PRN IV Dextrose/Water (DEXTROSE 10% IN WATER) 125 ML ASDIR PRN IV (CKD) Dextrose/Water (DEXTROSE 10% IN WATER) 250 ML ASDIR PRN IV (CKD) Epinephrine (ADRENALIN CHLORIDE) 4 MG ASDIR IV Dextrose/Water (DEXTROSE 5% WATER) 246 MLGlucagon (GLUCAGON) 1 MG ASDIR PRN IM Magnesium Sulfate (MAGNESIUM SULFATE 4GM/SWFI 100ML) 100 ML ASDIR PRN IV Magnesium Sulfate (MAGNESIUM SULFATE 2GM/SWFI 50ML) 50 ML ASDIR PRN IV Magnesium Sulfate/Dextrose (MAGNESIUM SULFATE 1GM/D5W 100ML) 100 ML ASDIR PRN IV Nitroglycerin/Dextrose (NITROGLYCERIN 50,000MCG/D5W 250ML) 250 ML ASDIR IV Ondansetron HCl (ZOFRAN) 4 MG Q6H PRN PRN IV Potassium Chloride (KCL 20MEQ/SWFI 100ML) 100 ML ASDIR PRN IV Sodium Bicarbonate (SODIUM BICARBONATE) 50 MEQ ASDIR PRN IV Functional ProgressFunctional progress: Viewing Planes: Lateral (Faces [facility]ESSION[facility]) Oral Motor Examination: Secretion Management: Within Functional Limits Dentition: Adequate Natural Buccal Facial: Within Functional Limit Oral Preparatory Stage: Labial Seal: Within Functional Limits Bolus control: Within Functional Limits Bolus Formation: Within Functional Limits Mastication: Within Functional Limits Oral Prep Cmt: ORAL PREPERATION WAS WNL'S. - Oral Phase - 1: Thin Liquids Observations: Within Functional Limits 2: Puree Solids Observations: Within Functional Limits 3: Mechanical Soft Observations: Within Functional Limits 6: Thin Liquids Observations: Within Functional Limits 7: Puree Solids Observations: Within Functional Limits 8: Mechanical Soft Observations: Within Functional Limits - Pharyngeal Phase - 1: Thin Liquids Observations: Within functional limits 2: Puree Solids Observations: Within functional limits 3: Mechanical Soft Observations: Within functional limits 6: Thin Liquids Observations: Within functional limits 7: Puree Solids Observations: Within functional limits 8: Mechanical Soft Observations: Within functional limits Pharyngeal Stage: Rotate to A/P View: No Physiology Labial Function: Within Normal Limits Lingual Function: Within Normal Limits Mandibular Function: Within Normal Limits Coordination of Swallow: Within Normal Limits Clinical Indicator of Aspiration: NO ASPIRATION OR PENETRATION DURING MBSS PROCEDURE. Laryngeal Elevation: Within Normal Limits Hyolaryngeal Excursion: Within Normal Limits Tongue Base Retraction: Within Normal Limits Epiglottic Inversion: Within Normal Limits Pharyngeal Constriction: Within Normal Limits Esophageal Screening Backflow/Reflux: No Clinical Impression: MBSS PROCEDURE WAS COMPLETED WITH THE PATIENT SEATED IN LATERAL VIEW. THIN LIQUIDS VIA A STRAW, PUREE, AND MECHANICAL SOFT CONSISTENCIES PRESENTED TO PT. NO DYSPHAGIA OBSERVED DURING MBSS PROCEDURE. PT'S SWALLOWING FUNCTION ANDSAFETY IS WITHIN NORMAL LIMITS PER PROCEDURE. NO ST SERVICES RECOMMENDED. RECOMMEND TO KEEP PT ON A REGULAR DIET AND THIN LIQUIDS. Diet Recommendations: REGULAR DIET AND THIN LIQUIDS. Swallow Precautions: Upright to 90 degrees Small Bites/Sips No Straws Allowed Alternate Bites/Sips Cue Swallow *2 Feeding Recommendations: Self Feeds Handoff to Nursing Staff: Handoff to Nurse ST Followup Services Recommended: No Rehabilitation Potential: Not Applicable Therapist recommended discharge needs: Home Speech Specific Discharge Plan: No ST interventions Reqd performance of all activities: Yes ACTIVITIES PERFORMED: Grooming and Hygiene: Yes Toileting: Yes Precautions: SEE OT EVAL Positions Used: Standing with Assist Other TREATMENT OUTCOMES: Activity tolerance: 0-10 minutes Durable Medical Equipment Recomended: TBD Comments: INCREASED STANDING TOLERANCE AND DECREASED LEVEL OF ASSIST FOR SELF-CARE ACTIVITIES. Document OT charges: SELF/HOME MGT/ADL [id number] Document Pain/Education: Yes Review OT Plan of Care: Yes If this is the patient's last treatment, this entry serves as the discharge summary: Y Start Time: 1038 Stop Time: 1048 Treatment time (minutes): 0:10 Completed by: Samuel Hardin GROOMING/HYGIENE: Washing hands/face: Supervision or Set-up Toileting: Moderate Assistance Safety awareness demonstrated . Occupational Therapy: Plan of Care OT Problem List: 1 Impaired Strength/ROM 3 Impaired Balance 5 Impaired Functional Mobil ROOF TILER GOALS TARGET DATE GOAL MET 1: PT WILL PERFORM LB DRESSING TO MOD I : 03/21/23 LT GL1: N SHORT TERM GOALS TARGET DATE GOAL MET Activity: How much help from another person does the patient currently need: . . Physical ExamGeneral appearance: alert, awakeHEENT: anicteric, mucosal membranes moist, sclera clearNeck: supple, no JVDCardiovascular: regular rate rhythm, S1/R2Tswjnzzzhqt: aerating well, clear bilaterallyAbdomen: bowel sounds present, non-distended, soft, non-tenderSkin: incision (C/D/I ), dry, intact, no rashMusculoskeletal - general: Musculoskeletal - general: swelling (ble), joints normal, normal muscle mass,range of motion normal, strength testing normal, no atrophyNeuro/SALES ASSISTANT: alert, oriented X 3, normal speech, no motor deficits, no sensory deficits ResultsFindings/Data:Laboratory Tests: 03/12 03/12 03/12 03/11 1145 0802 9073 1926Chemistry Sodium (134 - 147 mEq/L) 144 Potassium (3.4 - 5.0 mEq/L) 4.5 Chloride (100 - 108 mEq/L) 106 Carbon Dioxide (21 - 33 mEq/l) 33 Anion Gap (0 - 20) 9 BUN (7 - 18 mg/dL) 45 H Creatinine (0.6 - 1.3 mg/dL) 1.6 H Glomerular Filtr Rate (70 - 80) 45.8 L Glucose (70 - 110 mg/dL) 182 H POC Glucose (70 - 110 MG/DL) 279 H 204 H 136 H Calcium (8.0 - 10.5 mg/dL) 8.3 Magnesium (1.80 - 2.40 mg/dL) 1.95Hematology WBC (4.5 - 11.0 x10 3/uL) 5.8 RBC (4.00 - 5.60 x10 6/uL) 3.59 L Hgb (12.5 - 16.9 g/dL) 11.2 L Hct (37.5 - 50.7 %) 32.9 L MCV (81.0 - 99.0 fL) 91.6 MCH (27.0 - 33.0 pg) 31.2 MCHC (33.0 - 37.0 g/dL) 34.0 RDW (11.5 - 14.5 %) 14.9 H Plt Count (150 - 400 x10 3/uL) 193 MPV (7.0 - 9.0 fL) 11.3 H Neut % (Auto) (56.0 - 77.0 %) 82.0 H Lymph % (Auto) (14.0 - 32.0 %) 5.8 L [place] % (Auto) (4.8 - 9.0 %) 9.3 H Eos % (Auto) (0.3 - 3.7 %) 1.7 Baso % (Auto) (0.0 - 2.0 %) 0.0 Neut # (Auto) (2.0 - 7.6 x10 3/uL) 4.78 Lymph # (Auto) (1.0 - 3.8 x10 3/uL) 0.34 L [place] # (Auto) (0.1 - 0.8 x10 3/uL) 0.54 Eos # (Auto) (0.0 - 0.2 x10 3/uL) 0.10 Baso # (Auto) (0.0 - 0.2 x10 3/uL) 0.00 Abs Immat Gran (auto) (0.00 - 0.03 x10 3/uL) 0.07 H Add Manual Diff NO Immature Gran % (0.0 - 2.0 %) 1.2 Nucleated RBC % (0 - 0 %) 0.0 Nucleated RBCs # (Man) (0.0 - 0.1 x10 3/uL) 0.00 / 1540 Chemistry POC Glucose (70 - 110 MG/DL) 199 H Radiology data:Recent Impressions:RADIOLOGY - XR CHEST 1 V 03/12 0640 Report Impression - Status: SIGNED Entered: 03/12/2023 0733 IMPRESSION: 1. Mild enlarged cardiac silhouette. 2. Small bilateral pleural effusions. 3. Lxql-xo-yvsypxpc pulmonary edema versus infiltrates. Impression By: [email or web address] - David Espinal M.D.ULTRASOUND - DUP VEIN SCOTTY 03/12 702 Report Impression - Status: SIGNED Entered: 03/12/2023718 IMPRESSION: No evidence of deep venous thrombosis in either lower extremity. Impression By: [email or web address] - You Moore M.D. Diagnosis, Assessment PlanFree Text A P:Pt is a 72 yr old male admitted with NSTEMI, Multivessel CAD, Acute COPD exacerbation/postop respiratory failure, recent pulmonary embolism on Eliquis, Hypertension, History of tobacco use, Obesity, Acute renal failure due to ATN contrast induced, S/P CABG X4 03/04/23. Plan: PT/OT consulted. He is noted to be MOD A with mobility and fatigues eaisily. He lives at home alone and given his multiple medical issues including COPD exacerbation/s/p CABG with AKF he would benefit from IRF for close daily MD FU and aggressive rehab. Monitor volume status and BP. Wean O2 along with Prednisone. Thank you for allowing us to particapte in angela care of the pt. Will continue to follow. 03/10:PT /OT to follow. Making progress. He is on 1 liter. Giving diuretics. Pt wanting to DC home with HH now. 03/12: Pt seen. On room air. AMbulating in his room. States he is hoping to DC home tomorrow. He will be DC home with his brother staying with him. No DME needed exceot possible home O2. Home with HH planning. Consultants: anesthesiology, cardiology, cardiovascular surgery, critical/osteopathy doctor, hospitalistRehab attestation:Face to face exam completed. Treatment plan discussed with patient. at 1230 RPT #:[id number] OF REPORTPRProgress [id number]:19:00G.[id number] able for patient qhiyOKSDJYUMIQHFVM2646-54-76M64:30:46 HCACL 2023-03-12 12:58:00 [id number] [id number]/TDtcq7naO702v 6sQMuMknU54GTqfmzaFMN4zi8SC6619-95-28I33:58:00 [facility])Pulmonology Progress NoteREPORT#:[id number] REPORT STATUS: SignedDATE:03/12/23 TIME: 1258 PATIENT: TEVIN NYE UNIT #: [id number]#: [id number] [address] [birth year] AGE: 72 SEX: M ATTEND: Luci Villeda [facility] AUTHOR: Sharmila Alan * ALL edits or amendments must be made on the electronic/computer document * SubjectiveComments:On room air, no new complaints ROSAll systems rev neg: except as marked Objective GeneralVS/I O:Last Documented: Result Date Time Pulse Ox 98 03/12 1144 B/P 101/55 03/12 1144 B/P Mean 0.0 03/12 1144 Temp 36.5 03/12 1144 Pulse 63 03/12 1144 Resp 22 03/12 1144 O2 Delivery Nasal cannula 03/12 1001 O2 Flow Rate 2 03/12 1001 FiO2 28 03/11 2131 24 hour I O ending at 0700: 03/12 0700 03/11 1900 Intake Total 350 Output Total 2 800 Balance 348 -800 Intake, Oral 350 Number 2 2 Bowel Movements Output, Urine 800 Output, 2 Urine/Stool Mix Patient 84.8 kg Weight Weight Standing scale Measurement Method PATIENT WEIGHT: Weight (lb): 186Weight (oz): 15.23Weight (kg): 84.800 Medications:Active Meds + DC'd Last 24 HrsHaloperidol (HALDOL) 2.5 MG ONCE ONE PO (DC) Furosemide (LASIX 40 mg/4 mL INJECTION) 40 MG BID 9A 5P IV Metoprolol Tartrate (LOPRESSOR) 25 MG Q12HR PO Amlodipine Besylate (NORVASC) 10 MG DAILY PO Fluoxetine HCl (PROzac) 10 MG DAILY PO Insulin Human Lispro (HUMALOG) 0 AC HS SUBQ Ipratropium [place] (ATROVENT) 500 MCG RTQ2H PRN PRN INH Amiodarone HCl (CORDARONE) 400 MG Q12HR PO (CKD) Cyanocobalamin (Vitamin B-12 500 mcg tab) 500 MCG DAILY PO Ferrous Sulfate (FERROUS SULFATE) 325 MG DAILY PO Calcium Carbonate (TUMS CHEW TAB) 1,000 MG Q6H PRN PRN PO Bisacodyl (DULCOLAX) 10 MG ONCE PRN RECTAL Atorvastatin Calcium (LIPITOR) 40 MG 2100 PO Budesonide (PULMICORT RESPULES) 0.5 MG RTBID INH Formoterol Fumarate (PERFOROMIST) 20 MCG RTBID NEB Sterile Water (WATER FOR INJECTION) 1 ML ASDIR PRN IV Tamsulosin HCl (Flomax 0.4 mg) 0.8 MG PC BK PO Clopidogrel Bisulfate (Plavix) 75 MG DAILY PO Polyethylene Glycol (MIRALAX) 17 GM DAILY PO Amiodarone HCl (AMIODARONE HCL) 450 MG ASDIR IV (CKD) Dextrose/Water (D5%W NON-DEHP) 250 MLPantoprazole (PROTONIX) 40 MG DAILY@0600 PO Aspirin (ASPIRIN) 81 MG DAILY PO Docusate Sodium (COLACE) 100 MG BID PO Sennosides (Senna Lax 8.6 MG TABLET) 17.2 MG BEDTIME PO Acetaminophen (TYLENOL) 650 MG Q4H PRN PRN PO Acetaminophen (TYLENOL) 650 MG Q4H PRN PRN RECTAL Calcium Chloride (CALCIUM CHLORIDE) 1 GM ASDIR PRN IV Dextrose/Water (DEXTROSE 10% IN WATER) 125 ML ASDIR PRN IV (CKD) Dextrose/Water (DEXTROSE 10% IN WATER) 250 ML ASDIR PRN IV (CKD) Epinephrine (ADRENALIN CHLORIDE) 4 MG ASDIR IV Dextrose/Water (DEXTROSE 5% WATER) 246 MLGlucagon (GLUCAGON) 1 MG ASDIR PRN IM Magnesium Sulfate (MAGNESIUM SULFATE 4GM/SWFI 100ML) 100 ML ASDIR PRN IV Magnesium Sulfate (MAGNESIUM SULFATE 2GM/SWFI 50ML) 50 ML ASDIR PRN IV Magnesium Sulfate/Dextrose (MAGNESIUM SULFATE 1GM/D5W 100ML) 100 ML ASDIR PRN IV Nitroglycerin/Dextrose (NITROGLYCERIN 50,000MCG/D5W 250ML) 250 ML ASDIR IV Ondansetron HCl (ZOFRAN) 4 MG Q6H PRN PRN IV Potassium Chloride (KCL 20MEQ/SWFI 100ML) 100 ML ASDIR PRN IV Sodium Bicarbonate (SODIUM BICARBONATE) 50 MEQ ASDIR PRN IV Physical ExamGeneral appearance: alert, awake, oriented, no acute distressHead/eyes: atraumatic, normocephalic, PERRLNeck: supple/no meningismus, no bruit/NL carotids, no JVD, no lymphadenopathyCardiovascular: normal S1/S2, no rub, no gallopRespiratory/chest: decreased breath sounds, prolonged exp phase, wheezing, symmetric expansionAbdomen: soft, normal bowel sounds, no distention, no guardingExtremities: no clubbing, no cyanosisNeuro/SALES ASSISTANT: alert, oriented X 3, no motor deficitsSkin: dry, normal colorPsychiatry: normal affect, no hallucinations ResultsFindings/Data:Laboratory Tests 03/12/23 0312:[Embedded Image Not Available]Laboratory Tests 03/12 03/12 03/12 03/11 03/11 1145 0808 0312 1926 1540 Chemistry Sodium (134 - 147 mEq/L) 144 Potassium (3.4 - 5.0 mEq/L) 4.5 Chloride (100 - 108 mEq/L) 106 Carbon Dioxide (21 - 33 mEq/l) 33 Anion Gap (0 - 20) 9 BUN (7 - 18 mg/dL) 45 H Creatinine (0.6 - 1.3 mg/dL) 1.6 H Glomerular Filtr Rate (70 - 80) 45.8 L Glucose (70 - 110 mg/dL) 182 H POC Glucose (70 - 110 MG/DL) 279 H 204 H 136 H 199 H Calcium (8.0 - 10.5 mg/dL) 8.3 Magnesium (1.80 - 2.40 mg/dL) 1.95 03/11 1313 Chemistry POC Glucose (70 - 110 MG/DL) 206 H Laboratory Tests 03/12 0312 Hematology WBC (4.5 - 11.0 x10 3/uL) 5.8 RBC (4.00 - 5.60 x10 6/uL) 3.59 L Hgb (12.5 - 16.9 g/dL) 11.2 L Hct (37.5 - 50.7 %) 32.9 L MCV (81.0 - 99.0 fL) 91.6 MCH (27.0 - 33.0 pg) 31.2 MCHC (33.0 - 37.0 g/dL) 34.0 RDW (11.5 - 14.5 %) 14.9 H Plt Count (150 - 400 x10 3/uL) 193 MPV (7.0 - 9.0 fL) 11.3 H Neut % (Auto) (56.0 - 77.0 %) 82.0 H Lymph % (Auto) (14.0 - 32.0 %) 5.8 L [place] % (Auto) (4.8 - 9.0 %) 9.3 H Eos % (Auto) (0.3 - 3.7 %) 1.7 Baso % (Auto) (0.0 - 2.0 %) 0.0 Neut # (Auto) (2.0 - 7.6 x10 3/uL) 4.78 Lymph # (Auto) (1.0 - 3.8 x10 3/uL) 0.34 L [place] # (Auto) (0.1 - 0.8 x10 3/uL) 0.54 Eos # (Auto) (0.0 - 0.2 x10 3/uL) 0.10 Baso # (Auto) (0.0 - 0.2 x10 3/uL) 0.00 Abs Immat Gran (auto) (0.00 - 0.03 x10 3/uL) 0.07 H Add Manual Diff NO Immature Gran % (0.0 - 2.0 %) 1.2 Nucleated RBC % (0 - 0 %) 0.0 Nucleated RBCs # (Man) (0.0 - 0.1 x10 3/uL) 0.00 Radiology data:Recent Impressions:RADIOLOGY - XR CHEST 1 V 03/12 0640 Report Impression - Status: SIGNED Entered: 03/12/2023 0733 IMPRESSION: 1. Mild enlarged cardiac silhouette. 2. Small bilateral pleural effusions. 3. Lcyb-jv-vpriacxo pulmonary edema versus infiltrates. Impression By: [email or web address] - David Espinal M.D.ULTRASOUND - DUP VEIN SCOTTY 03/12 702 Report Impression - Status: SIGNED Entered: 03/12/2023 0719 IMPRESSION: No evidence of deep venous thrombosis in either lower extremity. Impression By: [email or web address] - You Moore M.D. Results: x-ray personally reviewed Diagnosis, Assessment PlanFree Text A P:1- Acute COPD exacerbation/postop respiratory insufficiency2- Recent pulmonary embolism s/p Eliquis3- NSTEMI/Multivessel coronary artery disease5- Hypertension6- History of tobacco use7- Obesity8- Acute renal failure9- S/P CABG X4 03/04/23 - On room air- S/P IV Solu-Medrol- Continue Pulmicort Perforomist and Atrovent nebulizers- Mucomyst/Hypersal as needed- CTA chest reviewed, no PE, emphysema, small effusions, RLL 1.[address] chest in 6-8 weeks. Patient informed - Renal function improving, nephrology following. On IV Lasix- CXR improving- PT/OT at 1303 RPT #:[id number] OF REPORTPRProgress pgjf4100-36-57W17:58:00G.[id number] able for patient eexbNTYMXTELKGWJBX1774-53-53G16:04:13 [facility] 2023-03-12 06:55:00 [id number] DNJ27tMaHmDKDZ0lwhxk5E3UxgD8499-74-76O18:55:00 [facility] CenterCard[facility] Progress NoteREPORT#:[id number] REPORT STATUS: SignedDATE:03/12/23 TIME: 06 PATIENT: TEVIN NYE UNIT #: [id number]#: [id number] ROOM[facility]BED[facility] [place]-1DOB: [birth year] AGE: 72 SEX: M ATTEND: ChristianaSamialibby Crews [facility] AUTHOR: Anuj Sylvester MD * ALL edits or amendments must be made on the electronic/computer document * SubjectiveChief complaint:Anxious but Better Objective GeneralVS/I O:24 hour I O ending at 0700: 03/12 0700 03/11 1900 Intake Total 350 Output Total 2 800 Balance 348 -800 Intake, Oral 350 Number 2 2 Bowel Movements Output, Urine 800 Output, 2 Urine/Stool Mix Patient 84.8 kg Weight Weight Standing scale Measurement Method Vital Signs: Date Time Temp Pulse Resp B/P B/P Pulse O2 O2 Flow FiO2 Mean Ox Delivery Rate 03/12 0403 98.2 63 14 148/63 0.0 98 Nasal cannula 03/11 2334 97.3 61 14 129/61 0.0 98 Nasal cannula / 2131 96 Nasal 2 28 cannula 03/11 2100 Nasal 2 cannula 03/11 1933 97.5 72 14 137/64 0.0 98 Nasal cannula / 1221 97.9 63 14 134/62 0.0 07/ 0844 96 Room air 03/11 0830 Nasal 1 cannula 03/11 0723 97.9 73 14 140/62 0.0 95 Nasal cannula PATIENT WEIGHT: Weight (lb): 186Weight (oz): 15.23Weight (kg): 84.800 Medications:Active Meds + DC'd Last 24 HrsHaloperidol (HALDOL) 2.5 MG ONCE ONE PO (DC) Furosemide (LASIX 40 mg/4 mL INJECTION) 40 MG BID 9A 5P IV Metoprolol Tartrate (LOPRESSOR) 25 MG Q12HR PO Amlodipine Besylate (NORVASC) 10 MG DAILY PO Fluoxetine HCl (PROzac) 10 MG DAILY PO Insulin Human Lispro (HUMALOG) 0 AC HS SUBQ Ipratropium [place] (ATROVENT) 500 MCG RTQ2H PRN PRN INH Amiodarone HCl (CORDARONE) 400 MG Q12HR PO (CKD) Cyanocobalamin (Vitamin B-12 500 mcg tab) 500 MCG DAILY PO Ferrous Sulfate (FERROUS SULFATE) 325 MG DAILY PO Calcium Carbonate (TUMS CHEW TAB) 1,000 MG Q6H PRN PRN PO Bisacodyl (DULCOLAX) 10 MG ONCE PRN RECTAL Atorvastatin Calcium (LIPITOR) 40 MG 2100 PO Budesonide (PULMICORT RESPULES) 0.5 MG RTBID INH Formoterol Fumarate (PERFOROMIST) 20 MCG RTBID NEB Sterile Water (WATER FOR INJECTION) 1 ML ASDIR PRN IV Tamsulosin HCl (Flomax 0.4 mg) 0.8 MG PC BK PO Clopidogrel Bisulfate (Plavix) 75 MG DAILY PO Polyethylene Glycol (MIRALAX) 17 GM DAILY PO Amiodarone HCl (AMIODARONE HCL) 450 MG ASDIR IV (CKD) Dextrose/Water (D5%W NON-DEHP) 250 MLPantoprazole (PROTONIX) 40 MG DAILY@0600 PO Aspirin (ASPIRIN) 81 MG DAILY PO Docusate Sodium (COLACE) 100 MG BID PO Sennosides (Senna Lax 8.6 MG TABLET) 17.2 MG BEDTIME PO Acetaminophen (TYLENOL) 650 MG Q4H PRN PRN PO Acetaminophen (TYLENOL) 650 MG Q4H PRN PRN RECTAL Calcium Chloride (CALCIUM CHLORIDE) 1 GM ASDIR PRN IV Dextrose/Water (DEXTROSE 10% IN WATER) 125 ML ASDIR PRN IV (CKD) Dextrose/Water (DEXTROSE 10% IN WATER) 250 ML ASDIR PRN IV (CKD) Epinephrine (ADRENALIN CHLORIDE) 4 MG ASDIR IV Dextrose/Water (DEXTROSE 5% WATER) 246 MLGlucagon (GLUCAGON) 1 MG ASDIR PRN IM Magnesium Sulfate (MAGNESIUM SULFATE 4GM/SWFI 100ML) 100 ML ASDIR PRN IV Magnesium Sulfate (MAGNESIUM SULFATE 2GM/SWFI 50ML) 50 ML ASDIR PRN IV Magnesium Sulfate/Dextrose (MAGNESIUM SULFATE 1GM/D5W 100ML) 100 ML ASDIR PRN IV Nitroglycerin/Dextrose (NITROGLYCERIN 50,000MCG/D5W 250ML) 250 ML ASDIR IV Ondansetron HCl (ZOFRAN) 4 MG Q6H PRN PRN IV Potassium Chloride (KCL 20MEQ/SWFI 100ML) 100 ML ASDIR PRN IV Sodium Bicarbonate (SODIUM BICARBONATE) 50 MEQ ASDIR PRN IV Physical ExamGeneral appearance: alert, awakeNeck: full range of motion, non-tender, normal thyroid, supple/no meningismus, no bruit/NL carotids, no JVD, no lymphadenopathy, no masses or swellingCardiovascular: CV assessment: regular rate and rhythmRespiratory: decreased breath sounds, clear to auscultationAbdomen: non-tender, normal bowel sounds, no distention, no guarding, no mass/organomegaly, no pulsatile mass, no reboundUpper extremity: UE assessment: normal capillary refill, no edemaLower extremity: LE assessment: normal capillary refill, no edema ResultsFindings/Data:Laboratory Tests 03/12 1926 1540 1313 0703 Chemistry Sodium (134 - 147 mEq/L) 144 Potassium (3.4 - 5.0 mEq/L) 4.5 Chloride (100 - 108 mEq/L) 106 Carbon Dioxide (21 - 33 mEq/l) 33 Anion Gap (0 - 20) 9 BUN (7 - 18 mg/dL) 45 H Creatinine (0.6 - 1.3 mg/dL) 1.6 H Glomerular Filtr Rate (70 - 80) 45.8 L Glucose (70 - 110 mg/dL) 182 H POC Glucose (70 - 110 MG/DL) 136 H 199 H 206 H 196 H Calcium (8.0 - 10.5 mg/dL) 8.3 Magnesium (1.80 - 2.40 mg/dL) 1.95 Laboratory Tests 03/12 312 Hematology WBC (4.5 - 11.0 x10 3/uL) 5.8 RBC (4.00 - 5.60 x10 6/uL) 3.59 L Hgb (12.5 - 16.9 g/dL) 11.2 L Hct (37.5 - 50.7 %) 32.9 L MCV (81.0 - 99.0 fL) 91.6 MCH (27.0 - 33.0 pg) 31.2 MCHC (33.0 - 37.0 g/dL) 34.0 RDW (11.5 - 14.5 %) 14.9 H Plt Count (150 - 400 x10 3/uL) 193 MPV (7.0 - 9.0 fL) 11.3 H Neut % (Auto) (56.0 - 77.0 %) 82.0 H Lymph % (Auto) (14.0 - 32.0 %) 5.8 L [place] % (Auto) (4.8 - 9.0 %) 9.3 H Eos % (Auto) (0.3 - 3.7 %) 1.7 Baso % (Auto) (0.0 - 2.0 %) 0.0 Neut # (Auto) (2.0 - 7.6 x10 3/uL) 4.78 Lymph # (Auto) (1.0 - 3.8 x10 3/uL) 0.34 L [place] # (Auto) (0.1 - 0.8 x10 3/uL) 0.54 Eos # (Auto) (0.0 - 0.2 x10 3/uL) 0.10 Baso # (Auto) (0.0 - 0.2 x10 3/uL) 0.00 Abs Immat Gran (auto) (0.00 - 0.03 x10 3/uL) 0.07 H Add Manual Diff NO Immature Gran % (0.0 - 2.0 %) 1.2 Nucleated RBC % (0 - 0 %) 0.0 Nucleated RBCs # (Man) (0.0 - 0.1 x10 3/uL) 0.00 Laboratory Tests 03/12 0312 Chemistry Magnesium (1.80 - 2.40 mg/dL) 1.95 Diagnosis, Assessment PlanConsultants: anesthesiology, cardiology, cardiovascular surgery, critical/osteopathy doctor, hospitalist Free Text DxA P NotesFree Text DxA P Notes:1- Severe COPD with exacerbation: As per Pulm2- Recent pulmonary embolism on Eliquis3- NSTEMI/Multivessel coronary artery disease: S/P CBBG, on tele and doing fair5- Hypertension" No wbetter conrol and on Norvasc 10mg and Metoprolol to 50 BID6- History of tobacco use7. Wide complex tachy: Was asymptomatic, no recurrence last night and suggests AFIB/SVT with aberrancy, now resolved. On po amio8. Acute on chronic renal failure at 0657 RPT #:[id number] OF REPORTPRProgress [id number]:55:00G.[id number] able for patient cwhdMTKDPNUUFMVZEW5793-23-90J79:58:13 [facility] 2023-03-12 05:03:00 [id number] poXOr+H4+/L9zEiptOMyWX8/eNQKF ygDRQA4fpCZZlbNc2wuNRXKUaU02038-35-66F61:03:00 [facility] CenterCardi[facility] ProgREPORT#:[id number] REPORT STATUS: SignedDATE:03/12/23 TIME: 0503 PATIENT: TEVIN NYE UNIT #: [id number]#: [id number] [address] [birth year] AGE: 72 SEX: M ATTEND: Luci Villeda [facility] AUTHOR: Evon Andrew Physic * ALL edits or amendments must be made on the electronic/computer document * GeneralPost-op: day 8Status post:03/04/23 CABG x 4 (MCCORMICK-LAD,SVG-Renea, SVG-OM, SVG-PDA) ALAA EVH (LGSV) Posterior pericardiotomy SubjectiveChief complaint:chest painFollow up CABG Review of SystemsConstitutional:Denies: chills, fatigue, generalized weakness. Skin:Denies: abrasion, bruising, laceration. Allergy/Immun:Denies: allergic reaction, anaphylaxis, rhinorrhea. Eyes:Denies: redness, visual loss/blurred, eye pain. ENT:Denies: ear ringing, throat swelling, toothache. Respiratory:Denies: [place] (dyspnea on exertion), pneumonia, SOB. Cardiovascular:Denies: chest pain, edema, orthopnea. GI:Denies: abdominal pain, anorexia, melena, nausea. :Denies: dysuria, flank pain. Musculoskeletal:Denies: arthritis, extremity pain, lumbar pain. Heme:Denies: adenopathy, bleeding, petechiae. Endocrine:Denies: cold intolerance, polydipsia, weight gain. Neuro:Denies: confusion, dizziness, seizure, syncope. All systems rev neg: except as marked Objective GeneralVS/I OLast Documented: Result Date Time Pulse Ox 98 03/12 403 B/P 148/63 03/12 040 B/P Mean 0.0 03/12 403 O2 Delivery Nasal cannula 03/12 403 Temp 98.2 03/12 403 Pulse 63 03/12 040 Resp 14 03/12 403 FiO2 28 03/11 2131 O2 Flow Rate 2 03/11 2131 24 hour I O ending at 0700: 03/12 0700 03/11 1900 Intake Total Output Total 800 Balance -800 Number 2 Bowel Movements Output, Urine 800 Patient 84.8 kg Weight Weight Standing scale Measurement Method PATIENT WEIGHT: Weight (lb): 186Weight (oz): 15.23Weight (kg): 84.800 Physical ExamGeneral appearance: alert, awake, orientedWound/incision: Location:sternal Site condition: edges approximated, incision intactHEENT: anicteric, mucosal membranes moist, pupils reactive to lightNeck: full range of motion, non-tenderCardiovascular: irregular rhythm, normal heart sounds, regular rate rhythmRespiratory: decreased breath sounds, aerating well, symmetric expansionAbdomen: soft, non-tenderGenitourinary: no bladder distentionExtremities: dry, moves allMusculoskeletal: full range of motionNeuro/SALES ASSISTANT: alert, oriented X 3Skin: dry, intactPsychiatry: normal affect, normal mood Diagnosis, Assessment PlanHospital course to date:This is a pleasant 72 year old male with past medical history of hypertension, dyslipidemia, DM-2 (on insulin), former smoker (quit 2018), BPH, prostate CA s/pradiation, COPD (uses inhaler at home, no home oxygen), and PE (November 2022 on eliquis) who presented to [facility] with chest pain, dyspnea on exertion, and NSTEMI. Coronary angiogram was done and revealed severe multivessel coronary artery disease. Patient was then transferred to [facility] for CV surgery evaluation and need for CABG. PLAN Admit patient to CVICUInitiate preop workupIncentive spirometer teachingCarotid ultrasoundBLE vein mappingCT chest non-contrastUA to r/o UTIEchocardiogramHeparin and Nitro dripConsult pulmonary, cardiology, and intensivistCoronary angiogram reviewed and patient will benefit from surgical revascularizaton. The surgery, risks involved, STS score, benefits, complications and alternatives were explained to the patient and his brother. He acknowledged understanding and is willing to proceed. We will tentatively schedule him for surgery tomorrow morning.Further recommendations to follow. 03/04/23CABG x 4 (MCCORMICK-LAD,SVG-Renea, SVG-OM, SVG-PDA)ALAAEVH (LGSV)Posterior pericardiotomy 03/05/23POD 1Patient alert, awake, and orientedLabs and CXR reviewedOn bipap 12/5 40%, wean off as toleratedTrend abgsWean off levo as toleratedKeep both chest tubesMonitor strict I Os and renal functionPT/OT, ambulate, OOB in chairDVT ppx with SCDsMonitor patient closely in CVICU 03/06/23POD 2Patient in stable conditionCXR and labs reviewedHGB 6.6, transfuse 2 units PRBCDiscontinue dopamine dripEchocardiogramDiscontinue both chest tubesCR increasing, renal following, UOP 25 cc/hrOOB in chairMonitor closely in CVICU 03/07/23POD 3Patient alert, awake, and oriented, no complaintsLabs and CXR reviewedOn 2l nasal cannula, encourage I-S useHgb stable 10.1Discontinue left pleural chest tubeOn amio drip 0.5Monitor renal function, Cr 2.9Consult rehabAmbulate patient with PT/OTKeep patient in CVICU 03/08/23POD 4Patient recovering wellCXR and labs reviewedWean oxygen off as toleratedNSR, off amio drip, continue poRenal following, CR improving now 2.5Encourage mobilization and I-S useKeep in CVICU 03/09/23POD 5Patient resting comfortable, out of bed in reclinerOn room airEncourage I-S useDiurese with lasix, CR 1.9Monitor strict I OsRehab consultedKeep central line and foleyPT/OTMonitor patient in CVICU 03/10/23POD 1XHGc9Rndhqahkhqb: On room air 97%, Encourage IS, Deep Breathing, CXR reviewed Cardiac: Remains sinus rhythm, pacing wires on standbyGI: + BM, Continue Bowel regimenGU: DC Valencia todayUO:1450, diuresing well.Continue PT/OTDisposition: Rehab versus homeDVT prophylaxisLabs reveiwed- replace electrolytes as neededPatient seen and examined by Dr. Villeda. Plan of care discussed with multidisciplinary teamDC neck line 03/11/23POD 0AVYe6Rtebigwcy of feeling anxious. Denies chest pains, denies shortness of breathRenal following started on Lasix 40 twice dailyCardiac: Remains sinus rhythm, pacing wires DC'd Will obtain echoRespiratory: On room airPatient declines inpatient rehab, patient states he will go home with his brotherWill order home health with case management, patient states he will go home withhis brother for supportPatient was seen and examined by Dr. Heredia home ProzacContinue PT OT, out of bedNeeds more diuresing, renal followingHome soon 03/12/23POD 6IBOt7Fvyyipw resting comfortable. On 2 L nasal cannulaPacing wires DC'd yesterday. Echo shows no pericardial effusionDVT studies completed this morning. No evidence for DVTChest x-ray reviewedRespiratory: Still requiring 2 L nasal cannula, Wean as tolerated. Cardiac: Remains sinus rhythmGI:+ BM. Eating wellGU: Voiding well. 800 urine outputRenal following- Recieving Lasix 40 mg IV twice daily monitor creatinineLabs reviewed.Patient continues diuresing.Pulmonary followingCoutninue out of bed, walking twice daily today. discussed with nurse. Consultants: anesthesiology, cardiology, cardiovascular surgery, critical/osteopathy doctor, hospitalist at 1546 at 5213 RPT #:[id number] OF REPORTPRProgress wvfi6713-01-24R14:03:00G.[id number] able for patient ixcqBGGQOHYKARQYCH8205-48-34O83:49:49 [facility] 2023-03-11 16:37:00 [id number]+ kdE/HC5tFeRTbZAX4hA8Y4/4yyb3w k3o18r8HA770gG3ufdcRv0g4CO70209-54-07X71:37:03413 4-[address] [place] [address] PATIENT NAME: TEVIN NYE ADMIT DATE: 03/03/23ACCOUNT NO: [id number] ROOM NO: G.3343 AGE: 72 REPORT TYPE: eECHOCARDIOGRAM REPORT SEX: M ADMITTING PHYSICIAN:Luci Villeda MD ATTENDING PHYSICIAN:Luci Villeda MD *[place], [place] [address]Phone: Ozf: [phone] Limited Transthoracic Echocardiogram Patient: Tevin NyeStudy Date: 03/11/2023 BP: 134 / 62 [id number] 1950 Age: 72 Height: 67 in / 170.2 cmAccession#: [id number] Gender: M Weight: 188.6 lb / 85.7 kgBMI/BSA: 29.6 kg/m 2 / 1.97 m 2 *Ordering Physician: * Evon Andrew *Interpreting Physician: * Anuj Sylvester MD*Financial Cost Analyst: * GURPREET Adams Indications: PACING WIRES DC'D. R/O EFFUSION. Study data: Transthoracic echocardiogram, limited study. Procedure:Transthoracic echocardiography was performed. Images were obtained usinga [employer] cardiac ultrasound machine. Image quality was good. Limited 2D andlimited spectral Doppler. Location: Bedside. Patient status:Inpatient. Patient room number: 3343. Study status: DANNY. Findings Left ventricle: The cavity size is normal. Systolic function is normal.The estimated ejection fraction is 50-54%. Regional wall motionabnormalities: Hypokinesis; consistent with postoperative changes.Right ventricle: TAPSE is 1.9 cm. Pacer wire noted in the rightventricle. Systolic function is normal.Left atrium: The atrium is normal in size.PATIENT NAME: TEVIN NYE Right atrium: Pacer wire noted in right atrium.Pericardium: There is no pericardial effusion.Systemic veins:Inferior vena cava: The vessel is normal in size. The respirophasicdiameter changes are in the normal range (= 50%). Measurements Left ventricle Value 03/06/2023 Ref PHIL, LAX 4.4 cm 5.2 4.2 - 5.8 ESD, LAX 3.3 cm 3.5 2.5 - 4.0 ESD/bsa, 1.7 cm/m 2 1.8 1.3 - 2.1 LAX FS, LAX 24 % 32 25 - 43 ESD/bsa 3.6 cm/m 2 3.7 --------- major ax, A4C PHIL/bsa 3.6 cm/m 2 3.7 --------- minor ax, A4C PHIL major 8.1 cm 8.3 --------- ax, A2C ESD major 8.1 cm 7.2 --------- ax, A2C PHIL/bsa 4.1 cm/m 2 4.1 --------- major ax, A2C ESD/bsa 4.1 cm/m 2 3.6 --------- major ax, A2C PW, ED 0.9 cm 0.8 0.6 - 1.0 IVS/PW, ED 0.94 0.57 --------- EF 48 % 60 52 - 72 Ventricular septum Value 03/06/2023 Ref IVS, ED 0.9 cm 0.5 0.6 - 1.0 Right ventricle Value 03/06/2023 Ref TAPSE, MM 1.9 cm 2.2 1.7 - 3.1 Left atrium Value 03/06/2023 Ref Vol/bsa, 12 ml/m 2 20 12 - 37 ES, 1-p A4C Vol, ES, 40 ml 50 --------- 2-p Vol/bsa, 20 ml/m 2 25 16 - 34 ES, 2-p Vol/bsa, 12 ml/m 2 21 16 - 34 ES, A/L ConclusionsPATIENT NAME: TEVIN NYE Summary: 1. Left ventricle: The cavity size is normal. Systolic function is normal. The estimated ejection fraction is 50-54%. Hypokinesis; consistent with postoperative changes.2. Pericardium, extracardiac: There is no pericardial effusion. Prepared and electronically signed by Anuj Sylvester MD03/11/2023 16:37 at 1637 PATIENT NAME: TEVIN NYE :37:0 0G.[id number] for patient vosvTDKMRMVFGEQFNB4574-37-70L39:38:37 [facility] 2023-03-11 11:09:00 [id number] [id number] 7V0lNvBXIT+D7CdFe++OSNvSexh5055-79-28I56:09:00 [facility] ([facility])Cardiology Progress NoteREPORT#:[id number] REPORT STATUS: SignedDATE:03/11/23 TIME: 1109 PATIENT: TEVIN NYE UNIT #: [id number]#: [id number] ROOM[facility]BED: [facility] [place]-1DOB: [birth year] AGE: 72 SEX: M ATTEND: Luci Villeda [facility] AUTHOR: Anuj Sylvester MD * ALL edits or amendments must be made on the electronic/computer document * SubjectiveChief complaint:Anxious but Better Objective GeneralVS/I O:24 hour I O ending at 0700: 03/11 0700 03/10 1900 Intake Total 250 460 Output Total 120 1300 Balance 130 -840 Intake, Oral 250 360 Intake, Oral 100 Supplement Number 2 Bowel Movements Number Voids 1 Output, Urine 120 1300 Patient 86.1 kg Weight Weight Standing scale Measurement Method Vital Signs: Date Time Temp Pulse Resp B/P B/P Pulse O2 O2 Flow FiO2 Mean Ox Delivery Rate 03/11 0844 96 Room air 03/11 0830 Nasal 1 cannula 03/11 723 97.9 73 14 140/62 0.0 95 Nasal cannula 03/11 0337 97.5 66 13 162/76 104.9 94 Room air 03/10 2242 98.1 70 13 145/69 94.3 94 Room air 03/106 98 Room air 21 03/10 2027 98.1 74 13 144/71 95.3 91 Room air 03/10 1420 97.9 70 14 126/66 86.0 93 Room air 03/10 1300 66 26 142/68 98 96 07/03 1200 65 24 148/70 100 96 07/03 1110 99 High flow 2 nasal cannula PATIENT WEIGHT: Weight (lb): 189Weight (oz): 13.09Weight (kg): 86.100 Medications:Active Meds + DC'd Last 24 HrsFurosemide (LASIX 40 mg/4 mL INJECTION) 40 MG BID 9A 5P IV Furosemide (LASIX 40 mg/4 mL INJECTION) 40 MG ONCE ONE IV (DC) Metoprolol Tartrate (LOPRESSOR) 25 MG Q12HR PO Amlodipine Besylate (NORVASC) 10 MG DAILY PO Fluoxetine HCl (PROzac) 10 MG DAILY PO Insulin Human Lispro (HUMALOG) 0 AC HS SUBQ Methylprednisolone Sodium Succinate (Solu-Medrol 40 MG Vial) 20 MG DAILY IV (DC) Ipratropium [place] (ATROVENT) 500 MCG RTQ2H PRN PRN INH Amiodarone HCl (CORDARONE) 400 MG Q12HR PO (CKD) Cyanocobalamin (Vitamin B-12 500 mcg tab) 500 MCG DAILY PO Ferrous Sulfate (FERROUS SULFATE) 325 MG DAILY PO Calcium Carbonate (TUMS CHEW TAB) 1,000 MG Q6H PRN PRN PO Bisacodyl (DULCOLAX) 10 MG ONCE PRN RECTAL Atorvastatin Calcium (LIPITOR) 40 MG 2100 PO Budesonide (PULMICORT RESPULES) 0.5 MG RTBID INH Formoterol Fumarate (PERFOROMIST) 20 MCG RTBID NEB Sterile Water (WATER FOR INJECTION) 1 ML ASDIR PRN IV Tamsulosin HCl (Flomax 0.4 mg) 0.8 MG PC BK PO Clopidogrel Bisulfate (Plavix) 75 MG DAILY PO Polyethylene Glycol (MIRALAX) 17 GM DAILY PO Amiodarone HCl (AMIODARONE HCL) 450 MG ASDIR IV (CKD) Dextrose/Water (D5%W NON-DEHP) 250 MLPantoprazole (PROTONIX) 40 MG DAILY@0600 PO Aspirin (ASPIRIN) 81 MG DAILY PO Docusate Sodium (COLACE) 100 MG BID PO Sennosides (Senna Lax 8.6 MG TABLET) 17.2 MG BEDTIME PO Acetaminophen (TYLENOL) 650 MG Q4H PRN PRN PO Acetaminophen (TYLENOL) 650 MG Q4H PRN PRN RECTAL Calcium Chloride (CALCIUM CHLORIDE) 1 GM ASDIR PRN IV Dextrose/Water (DEXTROSE 10% IN WATER) 125 ML ASDIR PRN IV (CKD) Dextrose/Water (DEXTROSE 10% IN WATER) 250 ML ASDIR PRN IV (CKD) Epinephrine (ADRENALIN CHLORIDE) 4 MG ASDIR IV Dextrose/Water (DEXTROSE 5% WATER) 246 MLGlucagon (GLUCAGON) 1 MG ASDIR PRN IM Magnesium Sulfate (MAGNESIUM SULFATE 4GM/SWFI 100ML) 100 ML ASDIR PRN IV Magnesium Sulfate (MAGNESIUM SULFATE 2GM/SWFI 50ML) 50 ML ASDIR PRN IV Magnesium Sulfate/Dextrose (MAGNESIUM SULFATE 1GM/D5W 100ML) 100 ML ASDIR PRN IV Nitroglycerin/Dextrose (NITROGLYCERIN 50,000MCG/D5W 250ML) 250 ML ASDIR IV Ondansetron HCl (ZOFRAN) 4 MG Q6H PRN PRN IV Potassium Chloride (KCL 20MEQ/SWFI 100ML) 100 ML ASDIR PRN IV Sodium Bicarbonate (SODIUM BICARBONATE) 50 MEQ ASDIR PRN IV Physical ExamGeneral appearance: alert, awakeNeck: full range of motion, non-tender, normal thyroid, supple/no meningismus, no bruit/NL carotids, no JVD, no lymphadenopathy, no masses or swellingCardiovascular: CV assessment: regular rate and rhythmRespiratory: decreased breath sounds, clear to auscultationAbdomen: non-tender, normal bowel sounds, no distention, no guarding, no mass/organomegaly, no pulsatile mass, no reboundUpper extremity: UE assessment: normal capillary refill, no edemaLower extremity: LE assessment: normal capillary refill, no edema ResultsFindings/Data:Laboratory Tests 03/11 03/10 03/10 0408 2039 1226 Chemistry Sodium (134 - 147 mEq/L) 140 Potassium (3.4 - 5.0 mEq/L) 4.0 Chloride (100 - 108 mEq/L) 105 Carbon Dioxide (21 - 33 mEq/l) 28 Anion Gap (0 - 20) 11 BUN (7 - 18 mg/dL) 34 H Creatinine (0.6 - 1.3 mg/dL) 1.6 H Glomerular Filtr Rate (70 - 80) 45.8 L Glucose (70 - 110 mg/dL) 204 H POC Glucose (70 - 110 MG/DL) 231 H 197 H Calcium (8.0 - 10.5 mg/dL) 8.7 Magnesium (1.80 - 2.40 mg/dL) 2.13 Laboratory Tests 03/11 0408 Hematology WBC (4.5 - 11.0 x10 3/uL) 7.6 RBC (4.00 - 5.60 x10 6/uL) 3.80 L Hgb (12.5 - 16.9 g/dL) 11.4 L Hct (37.5 - 50.7 %) 35.8 L MCV (81.0 - 99.0 fL) 94.2 MCH (27.0 - 33.0 pg) 30.0 MCHC (33.0 - 37.0 g/dL) 31.8 L RDW (11.5 - 14.5 %) 15.4 H Plt Count (150 - 400 x10 3/uL) 169 MPV (7.0 - 9.0 fL) 10.9 H Neut % (Auto) (56.0 - 77.0 %) 82.5 H Lymph % (Auto) (14.0 - 32.0 %) 5.5 L [place] % (Auto) (4.8 - 9.0 %) 9.6 H Eos % (Auto) (0.3 - 3.7 %) 0.3 Baso % (Auto) (0.0 - 2.0 %) 0.4 Neut # (Auto) (2.0 - 7.6 x10 3/uL) 6.31 Lymph # (Auto) (1.0 - 3.8 x10 3/uL) 0.42 L [place] # (Auto) (0.1 - 0.8 x10 3/uL) 0.73 Eos # (Auto) (0.0 - 0.2 x10 3/uL) 0.02 Baso # (Auto) (0.0 - 0.2 x10 3/uL) 0.03 Abs Immat Gran (auto) (0.00 - 0.03 x10 3/uL) 0.13 H Add Manual Diff NO Immature Gran % (0.0 - 2.0 %) 1.7 Nucleated RBC % (0 - 0 %) 0.0 Nucleated RBCs # (Man) (0.0 - 0.1 x10 3/uL) 0.00 Laboratory Tests 03/11 0408 Chemistry Magnesium (1.80 - 2.40 mg/dL) 2.13 Radiology data:Recent Impressions:RADIOLOGY - XR CHEST 1 V 03/11 0650 Report Impression - Status: SIGNED Entered: 03/11/2023 0730 IMPRESSION: 1. Moderate pulmonary edema versus infiltrates, pneumonia. 2. Small bilateral pleural effusions. 3. Mild enlarged cardiac silhouette. Impression By: [email or web address] - David Espinal M.D. Diagnosis, Assessment PlanConsultants: anesthesiology, cardiology, cardiovascular surgery, critical/osteopathy doctor, hospitalist Free Text DxA P NotesFree Text DxA P Notes:1- Severe COPD with exacerbation: As per Pulm2- Recent pulmonary embolism on Eliquis3- NSTEMI/Multivessel coronary artery disease: S/P CBBG, extubated and doing fair5- Hypertension" Will increase Norvasc 10mg and increase Metoprolol to 55 BID6- History of tobacco use7. Wide complex tachy: Asymptomatic and suggests AFIB/SVT with aberrancy, now resolved. On po amio8. Acute on chronic renal failure at 1110 RPT #:[id number] OF REPORTPRProgress [id number]:09:00G.[id number] able for patient nupnBTMWFISDALRONC9081-82-93T48:10:44 [facility] 2023-03-11 11:00:00 [id number]+[id number] Bkw76GoYRgP/52zMeg4uvJYxKSb9720-99-34N74:00:00 [facility] ([facility])Pulmonology Progress NoteREPORT#:[id number] REPORT STATUS: SignedDATE:03/11/23 TIME: 1100 PATIENT: TEVIN NYE UNIT #: [id number]#: [id number] ROOM[facility]BED[facility] [place]-1DOB: [birth year] AGE: 72 SEX: M ATTEND: Luci Villeda [facility] AUTHOR: Jonh Velasquez MD * ALL edits or amendments must be made on the electronic/computer document * SubjectiveChief complaint:Chest painComments:More short of breath todayConcerned about Prozac ROS: no nausea/vomitting or chest pain Objective GeneralVS/I O:Last Documented: Result Date Time Pulse Ox 96 03/11 844 O2 Delivery Room air 03/11 844 B/P 140/62 03/11 723 B/P Mean 0.0 03/11 723 Temp 97.9 03/11 723 Pulse 73 03/11 723 Resp 14 03/11 723 FiO2 21 03/10 2036 O2 Flow Rate 2 03/10 1110 24 hour I O ending at 0700: 03/10 1900 03/11 07 Intake Total 460 250 Output Total 1300 120 Balance -840 130 Intake, Oral 360 250 Intake, Oral 100 Supplement Number 2 Bowel Movements Number Voids 1 Output, Urine 1300 120 Patient 190 lb Weight Weight Standing scale Measurement Method PATIENT WEIGHT: Weight (lb): 189Weight (oz): 13.09Weight (kg): 86.100 Physical ExamGeneral appearance: chronically ill appearingHead/eyes: atraumatic, normocephalic, PERRLNeck: supple/no meningismus, no bruit/NL carotids, no JVD, no lymphadenopathyCardiovascular: normal S1/S2, no rub, no gallopRespiratory/chest: decreased breath sounds, prolonged exp phase, wheezing, symmetric expansionAbdomen: soft, normal bowel sounds, no distention, no guardingExtremities: no clubbing, no cyanosisNeuro/SALES ASSISTANT: alert, oriented X 3, no motor deficitsSkin: dry, normal colorPsychiatry: normal affect, no hallucinations ResultsFindings/Data:Laboratory Tests 03/11/23 0408:[Embedded Image Not Available]Laboratory Tests 03/10 03/10 03/11 1226 2039 0408 Chemistry Sodium (134 - 147 mEq/L) 140 Potassium (3.4 - 5.0 mEq/L) 4.0 Chloride (100 - 108 mEq/L) 105 Carbon Dioxide (21 - 33 mEq/l) 28 Anion Gap (0 - 20) 11 BUN (7 - 18 mg/dL) 34 H Creatinine (0.6 - 1.3 mg/dL) 1.6 H Glomerular Filtr Rate (70 - 80) 45.8 L Glucose (70 - 110 mg/dL) 204 H POC Glucose (70 - 110 MG/DL) 197 H 231 H Calcium (8.0 - 10.5 mg/dL) 8.7 Magnesium (1.80 - 2.40 mg/dL) 2.13 Laboratory Tests 03/11 0408 Hematology WBC (4.5 - 11.0 x10 3/uL) 7.6 RBC (4.00 - 5.60 x10 6/uL) 3.80 L Hgb (12.5 - 16.9 g/dL) 11.4 L Hct (37.5 - 50.7 %) 35.8 L MCV (81.0 - 99.0 fL) 94.2 MCH (27.0 - 33.0 pg) 30.0 MCHC (33.0 - 37.0 g/dL) 31.8 L RDW (11.5 - 14.5 %) 15.4 H Plt Count (150 - 400 x10 3/uL) 169 MPV (7.0 - 9.0 fL) 10.9 H Neut % (Auto) (56.0 - 77.0 %) 82.5 H Lymph % (Auto) (14.0 - 32.0 %) 5.5 L [place] % (Auto) (4.8 - 9.0 %) 9.6 H Eos % (Auto) (0.3 - 3.7 %) 0.3 Baso % (Auto) (0.0 - 2.0 %) 0.4 Neut # (Auto) (2.0 - 7.6 x10 3/uL) 6.31 Lymph # (Auto) (1.0 - 3.8 x10 3/uL) 0.42 L [place] # (Auto) (0.1 - 0.8 x10 3/uL) 0.73 Eos # (Auto) (0.0 - 0.2 x10 3/uL) 0.02 Baso # (Auto) (0.0 - 0.2 x10 3/uL) 0.03 Abs Immat Gran (auto) (0.00 - 0.03 x10 3/uL) 0.13 H Add Manual Diff NO Immature Gran % (0.0 - 2.0 %) 1.7 Nucleated RBC % (0 - 0 %) 0.0 Nucleated RBCs # (Man) (0.0 - 0.1 x10 3/uL) 0.00 Diagnosis, Assessment PlanFree Text A P:1- Acute COPD exacerbation/postop respiratory insufficiency2- Recent pulmonary embolism on Eliquis3- NSTEMI/Multivessel coronary artery disease5- Hypertension6- History of tobacco use7- Obesity8- Acute renal failure9- S/P CABG X4 03/04/23 - Continue Pulmicort Perforomist and Atrovent nebulizers- Mucomyst/Hypersal as needed- CTA chest reviewed, no PE, emphysema, small effusions, RLL 1.[address] chest in 6-8 weeks. Patient informed - Monitor renal function, nephrology following. s/p Lasix 40 mg X1- CXR noted with pulm edema-stable- PT/OT Overall improving at 1101 RPT #:[id number] OF REPORTPRProgress [id number]:00:00G.[id number] able for patient zglxHPIUKYEJAMKYMT6085-36-96M69:02:12 [facility] 2023-03-11 10:16:00 [id number] EpkjpkQ69UARB2G3uJF/5pE9JYC0650-97-30E54:16:00 [facility] ([facility])Nephrology Progress NoteREPORT#:[id number] REPORT STATUS: SignedDATE:03/11/23 TIME: 1016 PATIENT: TEVIN NYE UNIT #: [id number]#: [id number] [address] [birth year] AGE: 72 SEX: M ATTEND: Luci Villeda [facility] AUTHOR: Glendy Paz MD * ALL edits or amendments must be made on the electronic/computer document * SubjectiveComments:Out of ICU. Breathing okay. Still complaining of cough with productive sputum Objective GeneralVS/I O:Vital Signs: Date Time Temp Pulse Resp B/P B/P Pulse O2 O2 Flow FiO2 Mean Ox Delivery Rate 03/11 0844 96 Room air 03/11 0723 97.9 73 14 140/62 0.0 95 Nasal cannula 03/11 0337 97.5 66 13 162/76 104.9 94 Room air 03/10 2242 98.1 70 13 145/69 94.3 94 Room air 03/10 2036 98 Room air 21 03/10 2027 98.1 74 13 144/71 95.3 91 Room air 03/10 1420 97.9 70 14 126/66 86.0 93 Room air 03/10 1300 66 26 142/68 98 96 03/10 1200 65 24 148/70 100 96 03/10 1110 99 High flow 2 nasal cannula 03/10 1100 66 33 139/58 81 96 24 hour I O ending at 0700: 03/11 0700 03/10 1900 Intake Total 250 460 Output Total 120 1300 Balance 130 -840 Intake, Oral 250 360 Intake, Oral 100 Supplement Number 2 Bowel Movements Number Voids 1 Output, Urine 120 1300 Patient 86.1 kg Weight Weight Standing scale Measurement Method PATIENT WEIGHT: Weight (lb): 189Weight (oz): 13.09Weight (kg): 86.100 MedicationsActive Meds + DC'd Last 24 HrsFurosemide (LASIX 40 mg/4 mL INJECTION) 40 MG BID 9A 5P IV Furosemide (LASIX 40 mg/4 mL INJECTION) 40 MG ONCE ONE IV (DC) Metoprolol Tartrate (LOPRESSOR) 25 MG Q12HR PO Amlodipine Besylate (NORVASC) 10 MG DAILY PO Fluoxetine HCl (PROzac) 10 MG DAILY PO Insulin Human Lispro (HUMALOG) 0 AC HS SUBQ Methylprednisolone Sodium Succinate (Solu-Medrol 40 MG Vial) 20 MG DAILY IV (DC) Ipratropium [place] (ATROVENT) 500 MCG RTQ2H PRN PRN INH Amiodarone HCl (CORDARONE) 400 MG Q12HR PO (CKD) Cyanocobalamin (Vitamin B-12 500 mcg tab) 500 MCG DAILY PO Ferrous Sulfate (FERROUS SULFATE) 325 MG DAILY PO Calcium Carbonate (TUMS CHEW TAB) 1,000 MG Q6H PRN PRN PO Bisacodyl (DULCOLAX) 10 MG ONCE PRN RECTAL Atorvastatin Calcium (LIPITOR) 40 MG 2100 PO Budesonide (PULMICORT RESPULES) 0.5 MG RTBID INH Formoterol Fumarate (PERFOROMIST) 20 MCG RTBID NEB Sterile Water (WATER FOR INJECTION) 1 ML ASDIR PRN IV Tamsulosin HCl (Flomax 0.4 mg) 0.8 MG PC BK PO Clopidogrel Bisulfate (Plavix) 75 MG DAILY PO Polyethylene Glycol (MIRALAX) 17 GM DAILY PO Amiodarone HCl (AMIODARONE HCL) 450 MG ASDIR IV (CKD) Dextrose/Water (D5%W NON-DEHP) 250 MLPantoprazole (PROTONIX) 40 MG DAILY@0600 PO Aspirin (ASPIRIN) 81 MG DAILY PO Docusate Sodium (COLACE) 100 MG BID PO Sennosides (Senna Lax 8.6 MG TABLET) 17.2 MG BEDTIME PO Acetaminophen (TYLENOL) 650 MG Q4H PRN PRN PO Acetaminophen (TYLENOL) 650 MG Q4H PRN PRN RECTAL Calcium Chloride (CALCIUM CHLORIDE) 1 GM ASDIR PRN IV Dextrose/Water (DEXTROSE 10% IN WATER) 125 ML ASDIR PRN IV (CKD) Dextrose/Water (DEXTROSE 10% IN WATER) 250 ML ASDIR PRN IV (CKD) Epinephrine (ADRENALIN CHLORIDE) 4 MG ASDIR IV Dextrose/Water (DEXTROSE 5% WATER) 246 MLGlucagon (GLUCAGON) 1 MG ASDIR PRN IM Magnesium Sulfate (MAGNESIUM SULFATE 4GM/SWFI 100ML) 100 ML ASDIR PRN IV Magnesium Sulfate (MAGNESIUM SULFATE 2GM/SWFI 50ML) 50 ML ASDIR PRN IV Magnesium Sulfate/Dextrose (MAGNESIUM SULFATE 1GM/D5W 100ML) 100 ML ASDIR PRN IV Nitroglycerin/Dextrose (NITROGLYCERIN 50,000MCG/D5W 250ML) 250 ML ASDIR IV Ondansetron HCl (ZOFRAN) 4 MG Q6H PRN PRN IV Potassium Chloride (KCL 20MEQ/SWFI 100ML) 100 ML ASDIR PRN IV Sodium Bicarbonate (SODIUM BICARBONATE) 50 MEQ ASDIR PRN IV Physical ExamGeneral appearance: alert, awake, orientedHead/eyes: atraumatic, normocephalic, PERRLANeck: no JVD, no lymphadenopathyCardiovascular: normal heart sounds, regular rate and rhythm, no rubRespiratory: decreased breath sounds, aerating well, no distressAbdomen: non-tender, normal bowel sounds, soft, no reboundGenitourinary: urinary catheter, urineExtremities: pitting edema, no gangreneNeuro/SALES ASSISTANT: alert, normal speech ResultsFindings/Data:Laboratory Tests 03/119 1226 Chemistry Sodium (134 - 147 mEq/L) 140 Potassium (3.4 - 5.0 mEq/L) 4.0 Chloride (100 - 108 mEq/L) 105 Carbon Dioxide (21 - 33 mEq/l) 28 Anion Gap (0 - 20) 11 BUN (7 - 18 mg/dL) 34 H Creatinine (0.6 - 1.3 mg/dL) 1.6 H Glomerular Filtr Rate (70 - 80) 45.8 L Glucose (70 - 110 mg/dL) 204 H POC Glucose (70 - 110 MG/DL) 231 H 197 H Calcium (8.0 - 10.5 mg/dL) 8.7 Magnesium (1.80 - 2.40 mg/dL) 2.13 Laboratory Tests 03/11 408 Hematology WBC (4.5 - 11.0 x10 3/uL) 7.6 RBC (4.00 - 5.60 x10 6/uL) 3.80 L Hgb (12.5 - 16.9 g/dL) 11.4 L Hct (37.5 - 50.7 %) 35.8 L MCV (81.0 - 99.0 fL) 94.2 MCH (27.0 - 33.0 pg) 30.0 MCHC (33.0 - 37.0 g/dL) 31.8 L RDW (11.5 - 14.5 %) 15.4 H Plt Count (150 - 400 x10 3/uL) 169 MPV (7.0 - 9.0 fL) 10.9 H Neut % (Auto) (56.0 - 77.0 %) 82.5 H Lymph % (Auto) (14.0 - 32.0 %) 5.5 L [place] % (Auto) (4.8 - 9.0 %) 9.6 H Eos % (Auto) (0.3 - 3.7 %) 0.3 Baso % (Auto) (0.0 - 2.0 %) 0.4 Neut # (Auto) (2.0 - 7.6 x10 3/uL) 6.31 Lymph # (Auto) (1.0 - 3.8 x10 3/uL) 0.42 L [place] # (Auto) (0.1 - 0.8 x10 3/uL) 0.73 Eos # (Auto) (0.0 - 0.2 x10 3/uL) 0.02 Baso # (Auto) (0.0 - 0.2 x10 3/uL) 0.03 Abs Immat Gran (auto) (0.00 - 0.03 x10 3/uL) 0.13 H Add Manual Diff NO Immature Gran % (0.0 - 2.0 %) 1.7 Nucleated RBC % (0 - 0 %) 0.0 Nucleated RBCs # (Man) (0.0 - 0.1 x10 3/uL) 0.00 Radiology data:Recent Impressions:RADIOLOGY - XR CHEST 1 V 03/11 0650 Report Impression - Status: SIGNED Entered: 03/11/2023 7898 IMPRESSION: 1. Moderate pulmonary edema versus infiltrates, pneumonia. 2. Small bilateral pleural effusions. 3. Mild enlarged cardiac silhouette. Impression By: [email or web address] - David Espinal M.D. Diagnosis, Assessment PlanFree Text A P:1. JERAMY likely ATN secondary to IV contrast. Urine output improving. Sp NS at 75 cc/h for 1 L. Monitor respiratory status closely. Avoid nephrotoxic medications.creatinine improving at 3.1> 2.8>2.5 >1.9>1.5>1.6 today. Will continue with Lasix 40 mg IV bid 2. COPD on room air currently. Pulmonary following 3. Coronary disease status post CABG postop care per CT surgery 4. Left carotid artery stenosis 5. Anemia PRBC as needed 6. Hypertension better controlled Discussed with brother at bedside 1. Left ventricle: The cavity size is normal. Wall thickness is normal. Systolic function is mildly reduced. The estimated ejection fraction is 40-44%. Doppler parameters are consistent with abnormal left ventricular relaxation (grade 1 diastolic dysfunction).2. Regional wall motion abnormality: Severe hypokinesis of the apical anterior, apical septal, apical lateral, and apical myocardium; hypokinesis of the basal-mid anteroseptal myocardium.3. Right ventricle: Systolic pressure is moderately increased.4. Mitral valve: There is mild regurgitation.5. Tricuspid valve: Estimated right ventricular systolic pressure is 46 mmHg. There is moderate regurgitation.6. Pericardium, extracardiac: A trivial pericardial effusion is identified.7. Inferior vena cava: The vessel is dilated. The respirophasic diameter changes are in the normal range (= 50%). Inferior vena cava diameter is 2.1 cm. on 03/04/23 at 1717 at 1234 RPT #:[id number] OF REPORTPRProgress [id number]:16:00G.[id number] able for patient [id number]:34:36 [facility] 2023-03-11 05:42:00 [id number]+DwLa [id number]0:42:00 [facility])Cardiothoracic Surgery ProgREPORT#:[id number] REPORT STATUS: SignedDATE:03/11/23 TIME: 05 PATIENT: TEVIN NYE UNIT #: [id number]#: [id number] [address] [birth year] AGE: 72 SEX: M ATTEND: Luci Villeda [facility] AUTHOR: Evon Andrew Physic * ALL edits or amendments must be made on the electronic/computer document * GeneralPost-op: day 7Status post:03/04/23CABG x 4 (MCCORMICK-LAD,SVG-Renea, SVG-OM, SVG-PDA)ALAAEVH (LGSV)Posterior pericardiotomy SubjectiveChief complaint:chest painFollow up CABG Review of SystemsConstitutional:Denies: chills, fatigue, generalized weakness. Skin:Denies: abrasion, bruising, laceration. Allergy/Immun:Denies: allergic reaction, anaphylaxis, rhinorrhea. Eyes:Denies: redness, visual loss/blurred, eye pain. ENT:Denies: ear ringing, throat swelling, toothache. Respiratory:Denies: [place] (dyspnea on exertion), pneumonia, SOB. Cardiovascular:Denies: chest pain, edema, orthopnea. GI:Denies: abdominal pain, anorexia, melena, nausea. :Denies: dysuria, flank pain. Musculoskeletal:Denies: arthritis, extremity pain, lumbar pain. Heme:Denies: adenopathy, bleeding, petechiae. Endocrine:Denies: cold intolerance, polydipsia, weight gain. Neuro:Denies: confusion, dizziness, seizure, syncope. All systems rev neg: except as marked Objective Physical ExamWound/incision: Location:sternal Site condition: edges approximated, incision intactHEENT: anicteric, mucosal membranes moist, pupils reactive to lightNeck: full range of motion, non-tenderCardiovascular: irregular rhythm, normal heart sounds, regular rate rhythmRespiratory: decreased breath sounds, aerating well, symmetric expansionAbdomen: soft, non-tenderGenitourinary: no bladder distentionExtremities: dry, moves allMusculoskeletal: full range of motionNeuro/SALES ASSISTANT: alert, oriented X 3Skin: dry, intactPsychiatry: normal affect, normal mood Diagnosis, Assessment PlanHospital course to date:This is a pleasant 72 year old male with past medical history of hypertension, dyslipidemia, DM-2 (on insulin), former smoker (quit 2018), BPH, prostate CA s/pradiation, COPD (uses inhaler at home, no home oxygen), and PE (November 2022 on eliquis) who presented to [facility] with chest pain, dyspnea on exertion, and NSTEMI. Coronary angiogram was done and revealed severe multivessel coronary artery disease. Patient was then transferred to [facility] for CV surgery evaluation and need for CABG. PLAN Admit patient to CVICUInitiate preop workupIncentive spirometer teachingCarotid ultrasoundBLE vein mappingCT chest non-contrastUA to r/o UTIEchocardiogramHeparin and Nitro dripConsult pulmonary, cardiology, and intensivistCoronary angiogram reviewed and patient will benefit from surgical revascularizaton. The surgery, risks involved, STS score, benefits, complications and alternatives were explained to the patient and his brother. He acknowledged understanding and is willing to proceed. We will tentatively schedule him for surgery tomorrow morning.Further recommendations to follow. 03/04/23CABG x 4 (MCCORMICK-LAD,SVG-Renea, SVG-OM, SVG-PDA)ALAAEVH (LGSV)Posterior pericardiotomy 03/05/23POD 1Patient alert, awake, and orientedLabs and CXR reviewedOn bipap 12/5 40%, wean off as toleratedTrend abgsWean off levo as toleratedKeep both chest tubesMonitor strict I Os and renal functionPT/OT, ambulate, OOB in chairDVT ppx with SCDsMonitor patient closely in CVICU 03/06/23POD 2Patient in stable conditionCXR and labs reviewedHGB 6.6, transfuse 2 units PRBCDiscontinue dopamine dripEchocardiogramDiscontinue both chest tubesCR increasing, renal following, UOP 25 cc/hrOOB in chairMonitor closely in CVICU 03/07/23POD 3Patient alert, awake, and oriented, no complaintsLabs and CXR reviewedOn 2l nasal cannula, encourage I-S useHgb stable 10.1Discontinue left pleural chest tubeOn amio drip 0.5Monitor renal function, Cr 2.9Consult rehabAmbulate patient with PT/OTKeep patient in CVICU 03/08/23POD 4Patient recovering wellCXR and labs reviewedWean oxygen off as toleratedNSR, off amio drip, continue poRenal following, CR improving now 2.5Encourage mobilization and I-S useKeep in CVICU 03/09/23POD 5Patient resting comfortable, out of bed in reclinerOn room airEncourage I-S useDiurese with lasix, CR 1.9Monitor strict I OsRehab consultedKeep central line and foleyPT/OTMonitor patient in CVICU 03/10/23POD 7BVWy4Hrzmjqeorgt: On room air 97%, Encourage IS, Deep Breathing, CXR reviewed Cardiac: Remains sinus rhythm, pacing wires on standbyGI: + BM, Continue Bowel regimenGU: DC Valencia todayUO:1450, diuresing well.Continue PT/OTDisposition: Rehab versus homeDVT prophylaxisLabs reveiwed- replace electrolytes as neededPatient seen and examined by Dr. Villeda. Plan of care discussed with multidisciplinary teamDC neck line 03/11/23POD 2WEPg3Eqyxcowpn of feeling anxious. Denies chest pains, denies shortness of breathRenal following started on Lasix 40 twice dailyCardiac: Remains sinus rhythm, pacing wires DC'd Will obtain echoRespiratory: On room airPatient declines inpatient rehab, patient states he will go home with his brotherWill order home health with case management, patient states he will go home withhis brother for supportPatient was seen and examined by Dr. Heredia home ProzacContinue PT OT, out of bedNeeds more diuresing, renal followingHome soon Consultants: anesthesiology, cardiology, cardiovascular surgery, critical/osteopathy doctor, hospitalist at 1133 at 1837 RPT #:[id number] OF REPORTPRProgress [id number]:42:00G.[id number] able for patient mifvJFPYTOQDJXRPCF1903-79-76Q79:33:57 [facility] 2023-03-10 11:50:00 [id number]/pe2l pxIa0zNcI5HiuRNWUnvtRenA5/J3888-11-29F78:50:00 [facility] ([facility])Critical Care Progress NoteREPORT#:[id number] REPORT STATUS: SignedDATE:03/10/23 TIME: 1150 PATIENT: TEVIN NYE UNIT #: [id number]#: [id number] [address] [birth year] AGE: 72 SEX: M ATTEND: Luci Villeda [facility] AUTHOR: Dina Mccain MD * ALL edits or amendments must be made on the electronic/computer document * SubjectiveChief complaint: Chest pain/Unstable angina Wheezing Dyspnea Multivessel coronary artery disease Non-ST elevation NM Status post CABG x5 and ILAA Elective ventilator dependence Acute pulmonary insufficiency following major cardiothoracic surgery Acute blood loss anemia Metabolic acidosis Lactic acidosis Hypokalemia Hyperglycemia Chronic steroid dependence Severe left carotid stenosis History of severe COPD ConstipationHPI: Patient seen and examined in CVICU room #2201 this morning and discussed during CT surgery rounds. No acute events were reported overnight. Patient is postop day 5 after CABG x5 and isolation of left atrial appendage. Postop course was complicated with acute kidney injury with a creatinine of 1.9 mg/dL. Patient also had severe metabolic acidosis that responded to multiple intravenous bicarbinfusions. Urine output is adequate. Patient is off oxygen on room air now. He is able to ambulate without any difficulty. Tolerating oral diet. DC Valencia catheter. Patient will receive 1 dose of Lasix 40 mg IV today. Start on amlodipine 5 mg PO daily as tolerated. Will receive milk of magnesia for bowel movement. Patient is still 6 kg heavier than the admission weight. Vital signs stable with mildly elevated blood pressure. Patient is awake, interactive, following commands and moving all 4 extremities. Tevin Nye is a 72-year-old gentleman with past medical history significant for hypertension, diabetes, dyslipidemia, former smoker quit in 2008, BPH, prostate cancer status postradiation severe COPD, not home oxygen dependent, severe left carotid stenosis, who was admitted to the medical floor with diagnosis of NSTEMI. He was found to have severe multivessel coronary disease on cardiac catheterization. Patient also had shortness of breath and wheezing. He was seen by pulmonology and started on steroid therapy along with nebulizer treatments. Patient underwent elective coronary artery bypass grafting surgery and received 4 jumps along with isolation of left atrial appendage. He came outof the OR with norepinephrine at 4 mcg and epinephrine at 2 mcg. EF was normal. Patient received parasternal block. Intraoperatively he received 1.5 L of crystalloids, 250 mL of Cell Saver, hemoglobin was 8.3 g/dL but on arrival his latest hemoglobin is 6.9 g/dL. Patient has been ordered 2 units of packed red cells. Intra-Op urine output was 425 mL and EBL was 100 mL. Patient received fentanyl and last neuromuscular blockade dose was at 3:15 PM. Patient was givenhydrocortisone 100 mg IV at 2:45 PM for chronic steroid dependence. He is currently on assist-control at 18 tidal volume 480 PEEP of 5 and 50% FiO2 and ismoving tidal volumes at 470+. Vital signs are stable with heart rate 82 sinus rhythm, blood pressure 95/41 mmHg, pulse ox 100% while on 50% FiO2 and respiratory rate is 14. Chest tube output is minimal at 3 mm each. Patient wasordered albumin 25% to 50 mL. Pupils are bilaterally symmetrical and reactive to light measuring 3 mm on each side. Lab work upon arrival in the CVICU room #2201 revealed a potassium of 3.3, glucose 230, creatinine 1.46 mg/dL, hemoglobinof 6.9 g/dL and hematocrit of 20%. Tevin Gonzalez is a 72 y.o. male with PMH of hypertension, dyslipidemia, diabetes, former smoker (quit 2008), BPH, prostate CA s/p radiation, COPD (uses inhaler at home, no home oxygen), and PE (November 2022 on eliquis) who presented to [facility] with chest pain, dyspnea on exertion, and NSTEMI. Coronary angiogram was done and revealed severe multivessel coronary artery disease. Patient was then transferred to [facility] for CV surgery evaluation and need for CABG. on the floor he had chest pain at rest and was transferred to the ICU for nitroglycerin drip and preoperative workup. Also noted to have chest pain - which he states is better and related to when he coughs. Currently without any pain. Patient underwent elective CABG x5 and isolation of left atrial appendage on 03/04/2023. Comments:Interval history- Patient is on 2 L. Wean down as tolerated.Had a bowel movement. Objective GeneralVS/I OLast Documented: Result Date Time Pulse Ox 96 03/10 1100 B/P 139/58 03/10 1100 B/P Mean 81 / 1100 Pulse 66 07/ 1100 Resp 33 07 1100 Temp 36.4 03/10 0800 O2 Delivery Room air 03/10 0400 O2 Flow Rate 2 / 0356 FiO2 21 / 1906 24 hour I O ending at 0700: 03/10 0700 07 1900 Intake Total 530.00 1700 Output Total 1100 1470 Balance -570.00 230 Intake, IV 50.00 Intake, Oral 480 980 Intake, Oral 720 Supplement Number 1 2 Bowel Movements Output, Urine 1100 1470 Patient 88.4 kg Weight Weight Standing scale Measurement Method PATIENT WEIGHT: Weight (lb): 194Weight (oz): 14.22Weight (kg): 88.400 Medications:Active Meds + DC'd Last 24 HrsMetoprolol Tartrate (LOPRESSOR) 25 MG Q12HR PO Furosemide (LASIX 40 mg/4 mL INJECTION) 40 MG ONCE ONE IV (DC) Amlodipine Besylate (NORVASC) 10 MG DAILY PO Calcium Gluconate (Calcium Gluconate 1 GM/NS 50 mL (B2)) 50 ML ONCE ONE IV (DC) Alprazolam (XANAX 0.25) 0.25 MG NOW ONE PO (DC) Furosemide (LASIX 40 mg/4 mL INJECTION) 40 MG ONCE ONE IV (CAN) Amlodipine Besylate (NORVASC) 5 MG DAILY PO (DC) Fluoxetine HCl (PROzac) 10 MG DAILY PO Insulin Human Lispro (HUMALOG) 0 AC HS SUBQ Methylprednisolone Sodium Succinate (Solu-Medrol 40 MG Vial) 20 MG DAILY IV Metoprolol Tartrate (LOPRESSOR) 12.5 MG Q12HR PO (DC) Ipratropium [place] (ATROVENT) 500 MCG RTQ2H PRN PRN INH Amiodarone HCl (CORDARONE) 400 MG Q12HR PO (CKD) Cyanocobalamin (Vitamin B-12 500 mcg tab) 500 MCG DAILY PO Ferrous Sulfate (FERROUS SULFATE) 325 MG DAILY PO Calcium Carbonate (TUMS CHEW TAB) 1,000 MG Q6H PRN PRN PO Bisacodyl (DULCOLAX) 10 MG ONCE PRN RECTAL Atorvastatin Calcium (LIPITOR) 40 MG 2100 PO Budesonide (PULMICORT RESPULES) 0.5 MG RTBID INH Formoterol Fumarate (PERFOROMIST) 20 MCG RTBID NEB Sterile Water (WATER FOR INJECTION) 1 ML ASDIR PRN IV Tamsulosin HCl (Flomax 0.4 mg) 0.8 MG PC BK PO Clopidogrel Bisulfate (Plavix) 75 MG DAILY PO Mupirocin (BACTROBAN 2% 22 GM OINTMENT) 1 APPLIC BID NASAL (DC) Polyethylene Glycol (MIRALAX) 17 GM DAILY PO Amiodarone HCl (AMIODARONE HCL) 450 MG ASDIR IV (CKD) Dextrose/Water (D5%W NON-DEHP) 250 MLPantoprazole (PROTONIX) 40 MG DAILY@0600 PO Aspirin (ASPIRIN) 81 MG DAILY PO Docusate Sodium (COLACE) 100 MG BID PO Sennosides (Senna Lax 8.6 MG TABLET) 17.2 MG BEDTIME PO Acetaminophen (TYLENOL) 650 MG Q4H PRN PRN PO Acetaminophen (TYLENOL) 650 MG Q4H PRN PRN RECTAL Calcium Chloride (CALCIUM CHLORIDE) 1 GM ASDIR PRN IV Dextrose/Water (DEXTROSE 10% IN WATER) 125 ML ASDIR PRN IV (CKD) Dextrose/Water (DEXTROSE 10% IN WATER) 250 ML ASDIR PRN IV (CKD) Epinephrine (ADRENALIN CHLORIDE) 4 MG ASDIR IV Dextrose/Water (DEXTROSE 5% WATER) 246 MLGlucagon (GLUCAGON) 1 MG ASDIR PRN IM Magnesium Sulfate (MAGNESIUM SULFATE 4GM/SWFI 100ML) 100 ML ASDIR PRN IV Magnesium Sulfate (MAGNESIUM SULFATE 2GM/SWFI 50ML) 50 ML ASDIR PRN IV Magnesium Sulfate/Dextrose (MAGNESIUM SULFATE 1GM/D5W 100ML) 100 ML ASDIR PRN IV Nitroglycerin/Dextrose (NITROGLYCERIN 50,000MCG/D5W 250ML) 250 ML ASDIR IV Ondansetron HCl (ZOFRAN) 4 MG Q6H PRN PRN IV Potassium Chloride (KCL 20MEQ/SWFI 100ML) 100 ML ASDIR PRN IV Sodium Bicarbonate (SODIUM BICARBONATE) 50 MEQ ASDIR PRN IV Post-op: day 5Status post: CABG times 5 and ILAA Physical ExamHead/eyes: EOMI, PERRLENT: moist mucosal membranesCardiovascular: normal capillary refill, normal heart sounds, regular rate and rhythm, normal S1/Y2Vlbymvlbcsj: aerating well, clear to auscultation, symmetric expansionAbdomen: soft, non-tenderGenitourinary: urinary catheter, no bladder distentionExtremities: no clubbing, no cyanosis, no edemaMusculoskeletal normal inspectionNeuro/SALES ASSISTANT: alert, oriented X 3, CNII-XII intact, normal speech, reflexes equal bilat, no motor deficits, no sensory deficitsSkin: dry, normal color, normal temperature, no rashPsychiatry: normal affect, normal judgment/insight, normal mood, not homicidal, not suicidal, no hallucinations ResultsFindings/data:Laboratory Tests 03/10 315 Blood Gas Puncture Site Art Line O2 Saturation (90 - 100 %) 97.7 ABG pH (7.35 - 7.45) 7.438 ABG pCO2 (35.0 - 45 mmHg) 39.5 ABG pO2 (80 - 100.0 mmHg) 93.2 ABG HCO3 (22.0 - 26.0 MMOL/L) 26.9 H ABG Total CO2 28.2 ABG Base Excess (-4.0 - 4.0 MMOL/L) 2.5 ABG Hematocrit (37.5 - 50.7 %) 32 L ABG Hemoglobin (12.5 - 16.9 G/DL) 11.0 L Shayla Test Positive Sodium (134 - 147 mmol/L) 147 Potassium (3.4 - 5.0 mmol/L) 4.0 Chloride (100 - 108 mmol/L) 110 H Ionized Calcium (1.12 - 1.32 MMOL/L) 1.16 Lactic Acid (0.9 - 1.7 mmol/l) 0.4 L Temperature (F) 97.2 O2 Delivery Device [facility] Laboratory Tests 03/10 03/10 03/10 03/09 0831 0315 1939 Chemistry Sodium (134 - 147 mEq/L) 143 Potassium (3.4 - 5.0 mEq/L) 4.1 Chloride (100 - 108 mEq/L) 109 H Carbon Dioxide (21 - 33 mEq/l) 30 Anion Gap (0 - 20) 8 BUN (7 - 18 mg/dL) 55 H Creatinine (0.6 - 1.3 mg/dL) 1.5 H POC Creatinine (0.8 - 1.3 mg/dL) 1.4 H Glomerular Filtr Rate (70 - 80) 49.5 L Glucose (70 - 110 mg/dL) 174 H POC Glucose (70 - 110 MG/DL) 198 H 173 H POC Glucose (mg/dL) (70 - 110 MG/DL) 147 H Calcium (8.0 - 10.5 mg/dL) 8.2 Ionized Calcium [place] (1.09 - 1.30 MMOL/L) 1.09 Magnesium (1.80 - 2.40 mg/dL) 2.52 H 07/02 1540 Chemistry Sodium (134 - 147 mEq/L) 142 Potassium (3.4 - 5.0 mEq/L) 4.4 Chloride (100 - 108 mEq/L) 109 H Carbon Dioxide (21 - 33 mEq/l) 27 Anion Gap (0 - 20) 10 BUN (7 - 18 mg/dL) 61 H Creatinine (0.6 - 1.3 mg/dL) 1.8 H Glomerular Filtr Rate (70 - 80) 39.7 L Glucose (70 - 110 mg/dL) 228 H Calcium (8.0 - 10.5 mg/dL) 8.7 Laboratory Tests 03/10 0315 Hematology WBC (4.5 - 11.0 x10 3/uL) 5.3 RBC (4.00 - 5.60 x10 6/uL) 3.59 L Hgb (12.5 - 16.9 g/dL) 10.6 L Hct (37.5 - 50.7 %) 32.4 L MCV (81.0 - 99.0 fL) 90.3 MCH (27.0 - 33.0 pg) 29.5 MCHC (33.0 - 37.0 g/dL) 32.7 L RDW (11.5 - 14.5 %) 15.2 H Plt Count (150 - 400 x10 3/uL) 135 L MPV (7.0 - 9.0 fL) 11.3 H Neut % (Auto) (56.0 - 77.0 %) 82.4 H Lymph % (Auto) (14.0 - 32.0 %) 6.5 L [place] % (Auto) (4.8 - 9.0 %) 9.5 H Eos % (Auto) (0.3 - 3.7 %) 0.4 Baso % (Auto) (0.0 - 2.0 %) 0.2 Neut # (Auto) (2.0 - 7.6 x10 3/uL) 4.33 Lymph # (Auto) (1.0 - 3.8 x10 3/uL) 0.34 L [place] # (Auto) (0.1 - 0.8 x10 3/uL) 0.50 Eos # (Auto) (0.0 - 0.2 x10 3/uL) 0.02 Baso # (Auto) (0.0 - 0.2 x10 3/uL) 0.01 Abs Immat Gran (auto) (0.00 - 0.03 x10 3/uL) 0.05 H Add Manual Diff NO Immature Gran % (0.0 - 2.0 %) 1.0 Nucleated RBC % (0 - 0 %) 0.0 Nucleated RBCs # (Man) (0.0 - 0.1 x10 3/uL) 0.00 Laboratory Tests 03/10/23 0315:[Embedded Image Not Available] 03/09/23 1540:[Embedded Image Not Available] Radiology dataRecent Impressions:RADIOLOGY - XR CHEST 1 V 03/10 0514 Report Impression - Status: SIGNED Entered: 03/10/2023 5533 IMPRESSION: 1. Small to moderate bilateral pleural effusions. 2. Moderate pulmonary edema versus infiltrates, pneumonia. 3. [id number]-[id number] enlarged cardiac silhouette. Impression By: [email or web address] - David Espinal M.D. Diagnosis, Assessment PlanFree text A P: Problem List: Chest painWheezingDyspneaMultivessel coronary artery diseaseNon-ST elevation MIStatus post CABG x5 and ILAAElective ventilator dependenceAcute pulmonary insufficiency following major cardiothoracic surgeryAcute blood loss anemiaMetabolic acidosisLactic acidosisHypokalemiaHyperglycemiaChronic steroid dependenceSevere left carotid stenosisHistory of severe COPDConstipation Assessment and Plan: Tevin Nye is a 72-year-old gentleman with past medical history significant for hypertension, diabetes, dyslipidemia, former smoker quit in 2008, BPH, prostate cancer status postradiation severe COPD, not home oxygen dependent, severe left carotid stenosis, who was admitted to the medical floor with diagnosis of NSTEMI. He was found to have severe multivessel coronary disease on cardiac catheterization. Patient also had shortness of breath and wheezing. He was seen by pulmonology and started on steroid therapy along with nebulizer treatments. Patient underwent elective coronary artery bypass grafting surgery and received 4 jumps along with isolation of left atrial appendage. He came outof the OR with norepinephrine at 4 mcg and epinephrine at 2 mcg. EF was normal. Patient received parasternal block. Intraoperatively he received 1.5 L of crystalloids, 250 mL of Cell Saver, hemoglobin was 8.3 g/dL but on arrival his latest hemoglobin is 6.9 g/dL. Patient has been ordered 2 units of packed red cells. Intra-Op urine output was 425 mL and EBL was 100 mL. Patient received fentanyl and last neuromuscular blockade dose was at 3:15 PM. Patient was givenhydrocortisone 100 mg IV at 2:45 PM for chronic steroid dependence. He is currently on assist-control at 18 tidal volume 480 PEEP of 5 and 50% FiO2 and ismoving tidal volumes at 470+. Vital signs are stable with heart rate 82 sinus rhythm, blood pressure 95/41 mmHg, pulse ox 100% while on 50% FiO2 and respiratory rate is 14. Chest tube output is minimal at 3 mm each. Patient wasordered albumin 25% to 50 mL. Pupils are bilaterally symmetrical and reactive to light measuring 3 mm on each side. Lab work upon arrival in the CVICU room #2201 revealed a potassium of 3.3, glucose 230, creatinine 1.46 mg/dL, hemoglobinof 6.9 g/dL and hematocrit of 20%. Tevin Gonzalez is a 72 y.o. male with PMH of hypertension, dyslipidemia, diabetes, former smoker (quit 2008), BPH, prostate CA s/p radiation, COPD (uses inhaler at home, no home oxygen), and PE (November 2022 on eliquis) who presented to [facility] with chest pain, dyspnea on exertion, and NSTEMI. Coronary angiogram was done and revealed severe multivessel coronary artery disease. Patient was then transferred to [facility] for CV surgery evaluation and need for CABG. on the floor he had chest pain at rest and was transferred to the ICU for nitroglycerin drip and preoperative workup. Also noted to have chest pain - which he states is better and related to when he coughs. Currently without any pain. Patient underwent elective CABG x5 and isolation of left atrial appendage on 03/04/2023. Patient is postop day 0 after CABG x5 and ILAAHas severe left carotid stenosisOptimize systolic blood pressure to greater than 130 mmHgPatient was on chronic steroid therapy with Solu-MedrolAdrenal cortical support with hydrocortisone 25 mg IV every 8 hoursHas acute blood loss anemia with a hemoglobin of 6.9 g/dLTransfuse 2 units of packed red cellsPatient received Hydrocortisone 100 mg IV at 2:45 PM Start on Hydrocortisone 25 mg every 8 hoursAlso received parasternal blockCurrently on assist-control at 18 tidal volume 480 PEEP of 5 and 50% [id number] blood gas shows a pH of 7.28, pCO2 of 43 mmHg, pO2 of 175 mmHg and bicarbonate of 20 mmol with base excess at -6.5Patient has been ordered 1 amp of sodium bicarbonateRecheck ABGs in 1 hourChest tube output is minimal at 3 mL in both left pleural and mediastinal chest tubeBlood pressure is low upon arrival at 95/41 mm of HgOptimize blood pressure with Norepinephrine, titrate to a map of 70 or greaterAvoid sedationMonitor chest tube outputPupils are bilaterally symmetrical and reactive to light measuring 3 mm on each sideReplete potassium, check magnesium and ionized calciumFollow BMPGlycemic control with insulin drip, latest blood glucose is 230 mg/dL SCDs for DVT prophylaxis Noé Madrid MD FACP [facility].32 PM 03/07/2023Neurologically patient is at baseline. Pain well controlledOn NC 2 L during the day and BiPAP at night. ABG and CXR reviewed. small right pleural effusion seen Continue duonebs, wean steroids to daily, pulmonary following In SR, stop amiodarone drip, continue beta she 12.5 mg metoprolol and amidoarone 400 BID LFTs within normal limits.Continue aspirin and Plavix.PPI daily.Discontinue the left pleural chest tube.No bowel movement yet. Abdomen soft. Give milk of mag.Creatinine is downtrending and is now 2.8.Continue to monitor the urine output.Renal following.Hold nephrotoxic medications.On insulin drip since he is on steroids. Continue to monitor for now.SCDs for DVT prophylaxis.Rehab evaluation Total critical care time 45 minutes excluding procedures 03/08/2023 Patient seen and examined in CVICU room #2201 this morning. Patient is postop day 4 after CABG x5 and isolation of left atrial appendage. No acute events reported overnight. Kidney function is improving and the creatinine is 2.5 mg/dL this morning. Urine output was 550 mL overnight. Patient is on 2 L nasal cannula oxygen. He has history of COPD. Tolerating oral diet and having bowel movement. Patient has been able to ambulate with physical therapy. All drips have been discontinued. Blood pressure stable. Vital signs stable. Patient isawake, interactive, following commands and moving all 4 extremities. Tevin Nye is a 72-year-old gentleman with past medical history significant for hypertension, diabetes, dyslipidemia, former smoker quit in 2008, BPH, prostate cancer status postradiation severe COPD, not home oxygen dependent, severe left carotid stenosis, who was admitted to the medical floor with diagnosis of NSTEMI. He was found to have severe multivessel coronary disease on cardiac catheterization. Patient also had shortness of breath and wheezing. He was seen by pulmonology and started on steroid therapy along with nebulizer treatments. Patient underwent elective coronary artery bypass grafting surgery and received 4 jumps along with isolation of left atrial appendage. He came outof the OR with norepinephrine at 4 mcg and epinephrine at 2 mcg. EF was normal. Patient received parasternal block. Intraoperatively he received 1.5 L of crystalloids, 250 mL of Cell Saver, hemoglobin was 8.3 g/dL but on arrival his latest hemoglobin is 6.9 g/dL. Patient has been ordered 2 units of packed red cells. Intra-Op urine output was 425 mL and EBL was 100 mL. Patient received fentanyl and last neuromuscular blockade dose was at 3:15 PM. Patient was givenhydrocortisone 100 mg IV at 2:45 PM for chronic steroid dependence. He is currently on assist-control at 18 tidal volume 480 PEEP of 5 and 50% FiO2 and ismoving tidal volumes at 470+. Vital signs are stable with heart rate 82 sinus rhythm, blood pressure 95/41 mmHg, pulse ox 100% while on 50% FiO2 and respiratory rate is 14. Chest tube output is minimal at 3 mm each. Patient wasordered albumin 25% to 50 mL. Pupils are bilaterally symmetrical and reactive to light measuring 3 mm on each side. Lab work upon arrival in the CVICU room #2201 revealed a potassium of 3.3, glucose 230, creatinine 1.46 mg/dL, hemoglobinof 6.9 g/dL and hematocrit of 20%. eTvin Gonzalez is a 72 y.o. male with PMH of hypertension, dyslipidemia, diabetes, former smoker (quit 2008), BPH, prostate CA s/p radiation, COPD (uses inhaler at home, no home oxygen), and PE (November 2022 on eliquis) who presented to [facility] with chest pain, dyspnea on exertion, and NSTEMI. Coronary angiogram was done and revealed severe multivessel coronary artery disease. Patient was then transferred to [facility] for CV surgery evaluation and need for CABG. on the floor he had chest pain at rest and was transferred to the ICU for nitroglycerin drip and preoperative workup. Also noted to have chest pain - which he states is better and related to when he coughs. Currently without any pain. Patient underwent elective CABG x5 and isolation of left atrial appendage on 03/04/2023. Patient is postop day 4 after CABG x5 and isolation of left atrial appendageExtubated now, tolerating oral diet and having bowel movementPatient was able to ambulate with physical therapyImmediate postop course was complicated with unresponsiveness and requiring reversal of anesthetic agentsPupils were blown and 5 mm unreactive to light bilaterallyEmergent CT scan of the head was unremarkable in the immediate postoperative.Patient had profound acidosis that was reversed with multiple bicarb infusionsEventually neurological status was resolvedPatient is awake, interactive, following commands and moving all 4 extremitiesAll drips have been discontinued Has severe COPDNot home oxygen dependentCurrently on 2 L nasal cannula oxygenAssess need for home O2 requirementDeveloped acute kidney injury on CKDCreatinine is 2.5 mg/dL slightly improved from 2.7 mg/dL yesterdayUrine output was 550 mL overnightFollow urine output and BMPPatient is tolerating oral dietBoth chest tubes have been removed SCDs for DVT prophylaxis Noé Madrid MD [facility].42 AM 03/09/2023 Patient seen and examined in CVICU room #2201 this morning and discussed during CT surgery rounds. No acute events were reported overnight. Patient is postop day 5 after CABG x5 and isolation of left atrial appendage. Postop course was complicated with acute kidney injury with a creatinine of 1.9 mg/dL. Patient also had severe metabolic acidosis that responded to multiple intravenous bicarbinfusions. Urine output is adequate. Patient is off oxygen on room air now. He is able to ambulate without any difficulty. Tolerating oral diet. DC Valencia catheter. Patient will receive 1 dose of Lasix 40 mg IV today. Start on amlodipine 5 mg PO daily as tolerated. Will receive milk of magnesia for bowel movement. Patient is still 6 kg heavier than the admission weight. Vital signs stable with mildly elevated blood pressure. Patient is awake, interactive, following commands and moving all 4 extremities. Tevin Nye is a 72-year-old gentleman with past medical history significant for hypertension, diabetes, dyslipidemia, former smoker quit in 2008, BPH, prostate cancer status postradiation severe COPD, not home oxygen dependent, severe left carotid stenosis, who was admitted to the medical floor with diagnosis of NSTEMI. He was found to have severe multivessel coronary disease on cardiac catheterization. Patient also had shortness of breath and wheezing. He was seen by pulmonology and started on steroid therapy along with nebulizer treatments. Patient underwent elective coronary artery bypass grafting surgery and received 4 jumps along with isolation of left atrial appendage. He came outof the OR with norepinephrine at 4 mcg and epinephrine at 2 mcg. EF was normal. Patient received parasternal block. Intraoperatively he received 1.5 L of crystalloids, 250 mL of Cell Saver, hemoglobin was 8.3 g/dL but on arrival his latest hemoglobin is 6.9 g/dL. Patient has been ordered 2 units of packed red cells. Intra-Op urine output was 425 mL and EBL was 100 mL. Patient received fentanyl and last neuromuscular blockade dose was at 3:15 PM. Patient was givenhydrocortisone 100 mg IV at 2:45 PM for chronic steroid dependence. He is currently on assist-control at 18 tidal volume 480 PEEP of 5 and 50% FiO2 and ismoving tidal volumes at 470+. Vital signs are stable with heart rate 82 sinus rhythm, blood pressure 95/41 mmHg, pulse ox 100% while on 50% FiO2 and respiratory rate is 14. Chest tube output is minimal at 3 mm each. Patient wasordered albumin 25% to 50 mL. Pupils are bilaterally symmetrical and reactive to light measuring 3 mm on each side. Lab work upon arrival in the CVICU room #2201 revealed a potassium of 3.3, glucose 230, creatinine 1.46 mg/dL, hemoglobinof 6.9 g/dL and hematocrit of 20%. Tevin Gonzalez is a 72 y.o. male with PMH of hypertension, dyslipidemia, diabetes, former smoker (quit 2008), BPH, prostate CA s/p radiation, COPD (uses inhaler at home, no home oxygen), and PE (November 2022 on eliquis) who presented to [facility] with chest pain, dyspnea on exertion, and NSTEMI. Coronary angiogram was done and revealed severe multivessel coronary artery disease. Patient was then transferred to [facility] for CV surgery evaluation and need for CABG. on the floor he had chest pain at rest and was transferred to the ICU for nitroglycerin drip and preoperative workup. Also noted to have chest pain - which he states is better and related to when he coughs. Currently without any pain. Patient underwent elective CABG x5 and isolation of left atrial appendage on 03/04/2023. Patient is postop day 5 after CABG x5 and isolation of left atrial appendageImaging postop course was complicated with acute kidney injury and severe metabolic acidosisPatient had bilaterally dilated and fixed pupils for a while till acidosis was corrected with multiple bicarbonate infusions and pushes after which she was able to recover neurologicallyImmediate CT scan of the head without contrast was unremarkablePatient is extubated now, ambulating with physical therapy, tolerating oral dietawaiting bowel movementHe is still 6 kg heavier than admission weight of 83 kg weighing 89 todayPatient required oxygen because of prior history of pulmonary fibrosis and COVIDinfectionHe is on room air now with oxygen saturation 93%Adequate urine output overnightCreatinine improved from 2.5 to 2 mg/deciliter yesterday and today stands at 1.9mg/dLPatient will receive another dose of 40 mg Lasix IVFollow urine output and BMPBlood pressure is mildly elevated at 157/84 mmHgPatient was on amlodipine in the pastWe will restart amlodipine 5 mg PO daily as toleratedDC Valencia catheterLeave central venous catheter and art line for nowMilk of magnesia for bowel movementHas anemia of acute blood lossDoes not meet transfusion threshold at this timeAwaiting placement SCDs for DVT prophylaxis Noé Madrid MD [facility].13 PM 03/10/2023Neurologically patient is intact.Patient is on 2 L nasal cannula wean down as tolerated.ABG and chest x-ray reviewed.Does have a right pleural effusion. Continue diuresis.Increase Lasix to 40 IV twice daily. Renal following. Creatinine improving.Continue DuoNebs.Patient having bowel movements.Discontinue IJ Valencia and A-line.Sugars are controlled.We will stop Solu-Medrol.SCDs for DVT prophylaxis.On aspirin and Plavix.PPI daily. Rehab following. Total critical care time 33 minutes excluding proceduresConsultants: anesthesiology, cardiology, cardiovascular surgery, critical/osteopathy doctor, hospitalist at 1159 RPT #:[id number] OF REPORTPRProgress [id number]:[id number] able for patient [id number]:59:38 HCACL 2023-03-10 10:13:00 [id number]:00 [facility] CenterNephrology Progress NoteREPORT#:[id number] REPORT STATUS: SignedDATE:03/10/23 TIME: 1013 PATIENT: TEVIN NYE UNIT #: [id number]#: [id number] [address] [birth year] AGE: 72 SEX: M ATTEND: Luci Villeda [facility] AUTHOR: Glendy Paz MD * ALL edits or amendments must be made on the electronic/computer document * SubjectiveComments:Doing okay. Walked around the nurses station. Objective GeneralVS/I O:Vital Signs: Date Time Temp Pulse Resp B/P B/P Pulse O2 O2 Flow FiO2 Mean Ox Delivery Rate 03/10 0900 68 26 171/75 107 98 / 0800 171/78 112 / 0800 97.6 80 29 193/76 113 95 / 0730 165/82 113 /03 0700 170/77 111 /03 0700 71 24 193/76 113 95 / 0630 149/63 100 07/ 0619 162/74 106 / 0530 163/76 109 / 0433 97.5 63 23 155/56 89 97 07/03 0430 97.3 64 24 166/60 98 98 07/03 0401 97.3 65 11 162/63 97 96 07/03 0400 98.0 Room air 07/03 0400 97.3 66 14 162/65 98 100 07/03 0356 97 Nasal 2 cannula 07/03 0330 97.2 66 26 162/57 93 07/03 0301 97.0 65 23 156/54 90 99 07/03 0230 147/69 99 07/03 0230 97.0 59 19 136/51 79 99 07/03 0201 142/67 96 07/03 0201 97.0 59 18 136/49 78 99 07/03 0200 97.0 59 18 135/49 78 99 07/03 0130 160/72 104 07/03 0130 97.2 59 18 145/51 83 99 07/03 0100 138/75 99 07/03 0100 97.0 63 17 155/58 94 99 07/03 0030 134/64 91 07/03 0030 97.2 56 17 123/46 72 99 07/03 0000 98.0 Nasal 3 cannula 07/03 0000 137/67 94 07/03 0000 97.3 58 18 129/49 76 99 07/02 2330 97.5 62 21 150/58 91 98 07/02 2300 153/73 105 07/02 2300 97.5 60 18 145/54 86 89 07/02 2230 146/68 98 07/02 2230 97.9 60 20 139/51 80 91 07/02 2200 141/64 92 07/02 2200 98.2 56 23 132/48 75 98 07/02 2130 98.2 59 23 154/56 89 100 07/02 2100 158/77 110 07/02 2100 98.1 67 34 164/70 102 94 07/02 2030 161/77 110 07/02 1999 97.3 Nasal 3 cannula 07/02 1999 Nasal 3 cannula 07/02 1999 145/69 99 07/02 1999 98.4 64 23 147/53 84 99 07/02 1930 98.6 67 24 147/53 83 99 07/02 1906 95 Room air 21 07/02 1800 184/81 116 07/02 1800 98.6 77 26 184/65 102 100 07/02 1734 78 28 186/81 116 98 07/02 1700 155/71 102 07/02 1700 98.6 69 26 154/54 85 96 07/02 1630 163/74 106 07/02 1630 98.6 66 15 140/56 83 100 07/02 1625 94 Room air 21 07/02 1600 144/65 94 07/02 1600 98.6 65 24 144/49 76 93 07/02 1530 153/70 101 07/02 1530 98.4 67 24 148/58 84 93 07/02 1510 139/66 95 07/02 1510 98.6 72 30 184/64 96 94 07/02 1430 159/68 98 07/02 1430 98.4 71 39 168/60 91 92 07/02 1400 154/70 100 07/02 1400 98.6 67 24 143/55 84 93 07/02 1330 118/58 84 07/02 1330 98.4 65 29 139/45 72 92 07/02 1300 124/58 84 07/02 1300 98.2 66 26 134/45 71 93 07/02 1235 95 Room air 21 07/02 1230 123/58 84 07/02 1230 98.1 64 27 125/47 71 93 07/02 1200 111/56 80 07/02 1200 98.1 62 27 123/46 68 93 07/02 1138 128/65 89 07/02 1138 98.1 64 35 128/45 75 96 07/02 1100 150/67 96 07/02 1100 97.2 60 29 155/57 88 95 07/02 1030 146/53 81 07/02 1030 97.2 60 24 137/63 91 93 24 hour I O ending at 0700: 07/03 0700 07/02 1900 Intake Total 530.00 1700 Output Total 1100 1470 Balance -570.00 230 Intake, IV 50.00 Intake, Oral 480 980 Intake, Oral 720 Supplement Number 1 2 Bowel Movements Output, Urine 1100 1470 Patient 88.4 kg Weight Weight Standing scale Measurement Method PATIENT WEIGHT: Weight (lb): 194Weight (oz): 14.22Weight (kg): 88.400 MedicationsActive Meds + DC'd Last 24 HrsMetoprolol Tartrate (LOPRESSOR) 25 MG Q12HR PO Furosemide (LASIX 40 mg/4 mL INJECTION) 40 MG ONCE ONE IV (DC) Amlodipine Besylate (NORVASC) 10 MG DAILY PO Calcium Gluconate (Calcium Gluconate 1 GM/NS 50 mL (B2)) 50 ML ONCE ONE IV (DC) Alprazolam (XANAX 0.25) 0.25 MG NOW ONE PO (DC) Furosemide (LASIX 40 mg/4 mL INJECTION) 40 MG ONCE ONE IV (CAN) Furosemide (LASIX 40 mg/4 mL INJECTION) 40 MG ONCE ONE IV (DC) Amlodipine Besylate (NORVASC) 5 MG DAILY PO (DC) Fluoxetine HCl (PROzac) 10 MG DAILY PO Insulin Human Lispro (HUMALOG) 0 AC HS SUBQ Methylprednisolone Sodium Succinate (Solu-Medrol 40 MG Vial) 20 MG DAILY IV Metoprolol Tartrate (LOPRESSOR) 12.5 MG Q12HR PO (DC) Ipratropium [place] (ATROVENT) 500 MCG RTQ2H PRN PRN INH Amiodarone HCl (CORDARONE) 400 MG Q12HR PO (CKD) Cyanocobalamin (Vitamin B-12 500 mcg tab) 500 MCG DAILY PO Ferrous Sulfate (FERROUS SULFATE) 325 MG DAILY PO Calcium Carbonate (TUMS CHEW TAB) 1,000 MG Q6H PRN PRN PO Bisacodyl (DULCOLAX) 10 MG ONCE PRN RECTAL Atorvastatin Calcium (LIPITOR) 40 MG 2100 PO Budesonide (PULMICORT RESPULES) 0.5 MG RTBID INH Formoterol Fumarate (PERFOROMIST) 20 MCG RTBID NEB Sterile Water (WATER FOR INJECTION) 1 ML ASDIR PRN IV Tamsulosin HCl (Flomax 0.4 mg) 0.8 MG PC BK PO Clopidogrel Bisulfate (Plavix) 75 MG DAILY PO Mupirocin (BACTROBAN 2% 22 GM OINTMENT) 1 APPLIC BID NASAL (DC) Polyethylene Glycol (MIRALAX) 17 GM DAILY PO Amiodarone HCl (AMIODARONE HCL) 450 MG ASDIR IV (CKD) Dextrose/Water (D5%W NON-DEHP) 250 MLPantoprazole (PROTONIX) 40 MG DAILY@0600 PO Aspirin (ASPIRIN) 81 MG DAILY PO Docusate Sodium (COLACE) 100 MG BID PO Sennosides (Senna Lax 8.6 MG TABLET) 17.2 MG BEDTIME PO Acetaminophen (TYLENOL) 650 MG Q4H PRN PRN PO Acetaminophen (TYLENOL) 650 MG Q4H PRN PRN RECTAL Calcium Chloride (CALCIUM CHLORIDE) 1 GM ASDIR PRN IV Dextrose/Water (DEXTROSE 10% IN WATER) 125 ML ASDIR PRN IV (CKD) Dextrose/Water (DEXTROSE 10% IN WATER) 250 ML ASDIR PRN IV (CKD) Epinephrine (ADRENALIN CHLORIDE) 4 MG ASDIR IV Dextrose/Water (DEXTROSE 5% WATER) 246 MLGlucagon (GLUCAGON) 1 MG ASDIR PRN IM Magnesium Sulfate (MAGNESIUM SULFATE 4GM/SWFI 100ML) 100 ML ASDIR PRN IV Magnesium Sulfate (MAGNESIUM SULFATE 2GM/SWFI 50ML) 50 ML ASDIR PRN IV Magnesium Sulfate/Dextrose (MAGNESIUM SULFATE 1GM/D5W 100ML) 100 ML ASDIR PRN IV Nitroglycerin/Dextrose (NITROGLYCERIN 50,000MCG/D5W 250ML) 250 ML ASDIR IV Ondansetron HCl (ZOFRAN) 4 MG Q6H PRN PRN IV Potassium Chloride (KCL 20MEQ/SWFI 100ML) 100 ML ASDIR PRN IV Sodium Bicarbonate (SODIUM BICARBONATE) 50 MEQ ASDIR PRN IV Physical ExamGeneral appearance: alert, awake, orientedHead/eyes: atraumatic, normocephalic, PERRLANeck: no JVD, no lymphadenopathyCardiovascular: normal heart sounds, regular rate and rhythm, no rubRespiratory: decreased breath sounds, aerating well, no distressAbdomen: non-tender, normal bowel sounds, soft, no reboundGenitourinary: urinary catheter, urineExtremities: pitting edema, no gangreneNeuro/SALES ASSISTANT: alert, normal speech ResultsFindings/Data:Laboratory Tests 03/10 0315 Blood Gas Puncture Site Art Line O2 Saturation (90 - 100 %) 97.7 ABG pH (7.35 - 7.45) 7.438 ABG pCO2 (35.0 - 45 mmHg) 39.5 ABG pO2 (80 - 100.0 mmHg) 93.2 ABG HCO3 (22.0 - 26.0 MMOL/L) 26.9 H ABG Total CO2 28.2 ABG Base Excess (-4.0 - 4.0 MMOL/L) 2.5 ABG Hematocrit (37.5 - 50.7 %) 32 L ABG Hemoglobin (12.5 - 16.9 G/DL) 11.0 L Shayla Test Positive Sodium (134 - 147 mmol/L) 147 Potassium (3.4 - 5.0 mmol/L) 4.0 Chloride (100 - 108 mmol/L) 110 H Ionized Calcium (1.12 - 1.32 MMOL/L) 1.16 Lactic Acid (0.9 - 1.7 mmol/l) 0.4 L Temperature (F) 97.2 O2 Delivery Device [facility] Laboratory Tests 03/10 03/10 03/10 03/09 0831 0315 0315 1939 Chemistry Sodium (134 - 147 mEq/L) 143 Potassium (3.4 - 5.0 mEq/L) 4.1 Chloride (100 - 108 mEq/L) 109 H Carbon Dioxide (21 - 33 mEq/l) 30 Anion Gap (0 - 20) 8 BUN (7 - 18 mg/dL) 55 H Creatinine (0.6 - 1.3 mg/dL) 1.5 H POC Creatinine (0.8 - 1.3 mg/dL) 1.4 H Glomerular Filtr Rate (70 - 80) 49.5 L Glucose (70 - 110 mg/dL) 174 H POC Glucose (70 - 110 MG/DL) 198 H 173 H POC Glucose (mg/dL) (70 - 110 MG/DL) 147 H Calcium (8.0 - 10.5 mg/dL) 8.2 Ionized Calcium [place] (1.09 - 1.30 MMOL/L) 1.09 Magnesium (1.80 - 2.40 mg/dL) 2.52 H 03/09 03/09 1540 1028 Chemistry Sodium (134 - 147 mEq/L) 142 Potassium (3.4 - 5.0 mEq/L) 4.4 Chloride (100 - 108 mEq/L) 109 H Carbon Dioxide (21 - 33 mEq/l) 27 Anion Gap (0 - 20) 10 BUN (7 - 18 mg/dL) 61 H Creatinine (0.6 - 1.3 mg/dL) 1.8 H Glomerular Filtr Rate (70 - 80) 39.7 L Glucose (70 - 110 mg/dL) 228 H POC Glucose (70 - 110 MG/DL) 197 H Calcium (8.0 - 10.5 mg/dL) 8.7 Laboratory Tests 03/10 315 Hematology WBC (4.5 - 11.0 x10 3/uL) 5.3 RBC (4.00 - 5.60 x10 6/uL) 3.59 L Hgb (12.5 - 16.9 g/dL) 10.6 L Hct (37.5 - 50.7 %) 32.4 L MCV (81.0 - 99.0 fL) 90.3 MCH (27.0 - 33.0 pg) 29.5 MCHC (33.0 - 37.0 g/dL) 32.7 L RDW (11.5 - 14.5 %) 15.2 H Plt Count (150 - 400 x10 3/uL) 135 L MPV (7.0 - 9.0 fL) 11.3 H Neut % (Auto) (56.0 - 77.0 %) 82.4 H Lymph % (Auto) (14.0 - 32.0 %) 6.5 L [place] % (Auto) (4.8 - 9.0 %) 9.5 H Eos % (Auto) (0.3 - 3.7 %) 0.4 Baso % (Auto) (0.0 - 2.0 %) 0.2 Neut # (Auto) (2.0 - 7.6 x10 3/uL) 4.33 Lymph # (Auto) (1.0 - 3.8 x10 3/uL) 0.34 L [place] # (Auto) (0.1 - 0.8 x10 3/uL) 0.50 Eos # (Auto) (0.0 - 0.2 x10 3/uL) 0.02 Baso # (Auto) (0.0 - 0.2 x10 3/uL) 0.01 Abs Immat Gran (auto) (0.00 - 0.03 x10 3/uL) 0.05 H Add Manual Diff NO Immature Gran % (0.0 - 2.0 %) 1.0 Nucleated RBC % (0 - 0 %) 0.0 Nucleated RBCs # (Man) (0.0 - 0.1 x10 3/uL) 0.00 Radiology data:Recent Impressions:RADIOLOGY - XR CHEST 1 V 03/10 0514 Report Impression - Status: SIGNED Entered: 03/10/2023 7395 IMPRESSION: 1. Small to moderate bilateral pleural effusions. 2. Moderate pulmonary edema versus infiltrates, pneumonia. 3. Jlct-jb-gcqymaaley enlarged cardiac silhouette. Impression By: [email or web address] - David Espinal M.D. Diagnosis, Assessment PlanFree Text A P:1. JERAMY likely ATN secondary to IV contrast. Urine output improving. Sp NS at 75 cc/h for 1 L. Monitor respiratory status closely. Avoid nephrotoxic medications.creatinine improving at 3.1> 2.8>2.5 >1.9>1.5 today. Will start Lasix 40 mg IV bid 2. Acute hypercapnic respiratory failure with COPD on room air currently. Pulmonary following 3. Coronary disease status post CABG postop care per CT surgery 4. Left carotid artery stenosis 5. Anemia PRBC as needed Discussed with brother at bedside and ICC 1. Left ventricle: The cavity size is normal. Wall thickness is normal. Systolic function is mildly reduced. The estimated ejection fraction is 40-44%. Doppler parameters are consistent with abnormal left ventricular relaxation (grade 1 diastolic dysfunction).2. Regional wall motion abnormality: Severe hypokinesis of the apical anterior, apical septal, apical lateral, and apical myocardium; hypokinesis of the basal-mid anteroseptal myocardium.3. Right ventricle: Systolic pressure is moderately increased.4. Mitral valve: There is mild regurgitation.5. Tricuspid valve: Estimated right ventricular systolic pressure is 46 mmHg. There is moderate regurgitation.6. Pericardium, extracardiac: A trivial pericardial effusion is identified.7. Inferior vena cava: The vessel is dilated. The respirophasic diameter changes are in the normal range (= 50%). Inferior vena cava diameter is 2.1 cm. on 03/04/23 at 1717 at 1233 RPT #:[id number] OF REPORTPRProgress [id number]:13:00G.[id number] able for patient [id number]:33:35 [facility] 2023-03-10 09:28:00 [id number] [id number]/Fm4kFbFqMYmXY AG+r4z+AIMzw8ud0FfrBWegMSOT8383-68-65T39:28:00 [facility] ([facility])Pulmonology Progress NoteREPORT#:[id number] REPORT STATUS: SignedDATE:03/10/23 TIME: 927 PATIENT: TEVIN NYE UNIT #: [id number]#: [id number] [address] [birth year] AGE: 72 SEX: M ATTEND: Luci Villeda [facility] AUTHOR: Jonh Velasquez MD * ALL edits or amendments must be made on the electronic/computer document * SubjectiveChief complaint:Chest painComments:Doing about the sameOxygen weanIJ remains in place ROS: no nausea/vomitting or chest pain Objective GeneralVS/I O:Last Documented: Result Date Time B/P 171/78 03/10 0800 B/P Mean 112 03/10 0800 Pulse Ox 95 03/10 0800 Pulse 80 03/10 0800 Resp 29 03/10 0800 Temp 97.5 03/10 0433 O2 Delivery Room air 03/10 0400 O2 Flow Rate 2 03/10 0356 FiO2 21 03/09 1906 24 hour I O ending at 0700: 03/09 1900 03/10 0700 Intake Total 1700 530.00 Output Total 1470 1100 Balance 230 -570.00 Intake, IV 50.00 Intake, Oral 980 480 Intake, Oral 720 Supplement Number 2 1 Bowel Movements Output, Urine 1470 1100 Patient 195 lb Weight Weight Standing scale Measurement Method PATIENT WEIGHT: Weight (lb): 194Weight (oz): 14.22Weight (kg): 88.400 Physical ExamGeneral appearance: chronically ill appearingHead/eyes: atraumatic, normocephalic, PERRLNeck: supple/no meningismus, no bruit/NL carotids, no JVD, no lymphadenopathyCardiovascular: normal S1/S2, no rub, no gallopRespiratory/chest: decreased breath sounds, prolonged exp phase, wheezing, symmetric expansionAbdomen: soft, normal bowel sounds, no distention, no guardingExtremities: no clubbing, no cyanosisNeuro/SALES ASSISTANT: alert, oriented X 3, no motor deficitsSkin: dry, normal colorPsychiatry: normal affect, no hallucinations ResultsFindings/Data:Laboratory Tests 03/09/23 1540:[Embedded Image Not Available] 03/10/23 0315:[Embedded Image Not Available]Laboratory Tests 07/03 0315 Blood Gas Puncture Site Art Line O2 Saturation (90 - 100 %) 97.7 ABG pH (7.35 - 7.45) 7.438 ABG pCO2 (35.0 - 45 mmHg) 39.5 ABG pO2 (80 - 100.0 mmHg) 93.2 ABG HCO3 (22.0 - 26.0 MMOL/L) 26.9 H ABG Total CO2 28.2 ABG Base Excess (-4.0 - 4.0 MMOL/L) 2.5 ABG Hematocrit (37.5 - 50.7 %) 32 L ABG Hemoglobin (12.5 - 16.9 G/DL) 11.0 L Shayla Test Positive Sodium (134 - 147 mmol/L) 147 Potassium (3.4 - 5.0 mmol/L) 4.0 Chloride (100 - 108 mmol/L) 110 H Ionized Calcium (1.12 - 1.32 MMOL/L) 1.16 Lactic Acid (0.9 - 1.7 mmol/l) 0.4 L Temperature (F) 97.2 O2 Delivery Device [facility] Laboratory Tests 03/09 03/09 03/09 03/10 03/10 1028 1540 1939 0315 0315Chemistry Sodium (134 - 147 mEq/L) 142 143 Potassium (3.4 - 5.0 mEq/L) 4.4 4.1 Chloride (100 - 108 mEq/L) 109 H 109 H Carbon Dioxide (21 - 33 mEq/l) 27 30 Anion Gap (0 - 20) 10 8 BUN (7 - 18 mg/dL) 61 H 55 H Creatinine (0.6 - 1.3 mg/dL) 1.8 H 1.5 H POC Creatinine (0.8 - 1.3 mg/dL) 1.4 H Glomerular Filtr Rate (70 - 80) 39.7 L 49.5 L Glucose (70 - 110 mg/dL) 228 H 174 H POC Glucose (70 - 110 MG/DL) 197 H 173 H POC Glucose (mg/dL) (70 - 110 MG/DL) 147 H Calcium (8.0 - 10.5 mg/dL) 8.7 8.2 Ionized Calcium [place] (1.09 - 1.30 MMOL/L) 1.09 Magnesium (1.80 - 2.40 mg/dL) 2.52 H 03/10 0831 Chemistry POC Glucose (70 - 110 MG/DL) 198 H Laboratory Tests 03/10 0315 Hematology WBC (4.5 - 11.0 x10 3/uL) 5.3 RBC (4.00 - 5.60 x10 6/uL) 3.59 L Hgb (12.5 - 16.9 g/dL) 10.6 L Hct (37.5 - 50.7 %) 32.4 L MCV (81.0 - 99.0 fL) 90.3 MCH (27.0 - 33.0 pg) 29.5 MCHC (33.0 - 37.0 g/dL) 32.7 L RDW (11.5 - 14.5 %) 15.2 H Plt Count (150 - 400 x10 3/uL) 135 L MPV (7.0 - 9.0 fL) 11.3 H Neut % (Auto) (56.0 - 77.0 %) 82.4 H Lymph % (Auto) (14.0 - 32.0 %) 6.5 L [place] % (Auto) (4.8 - 9.0 %) 9.5 H Eos % (Auto) (0.3 - 3.7 %) 0.4 Baso % (Auto) (0.0 - 2.0 %) 0.2 Neut # (Auto) (2.0 - 7.6 x10 3/uL) 4.33 Lymph # (Auto) (1.0 - 3.8 x10 3/uL) 0.34 L [place] # (Auto) (0.1 - 0.8 x10 3/uL) 0.50 Eos # (Auto) (0.0 - 0.2 x10 3/uL) 0.02 Baso # (Auto) (0.0 - 0.2 x10 3/uL) 0.01 Abs Immat Gran (auto) (0.00 - 0.03 x10 3/uL) 0.05 H Add Manual Diff NO Immature Gran % (0.0 - 2.0 %) 1.0 Nucleated RBC % (0 - 0 %) 0.0 Nucleated RBCs # (Man) (0.0 - 0.1 x10 3/uL) 0.00 Diagnosis, Assessment PlanFree Text A P:1- Acute COPD exacerbation/postop respiratory insufficiency2- Recent pulmonary embolism on Eliquis3- NSTEMI/Multivessel coronary artery disease5- Hypertension6- History of tobacco use7- Obesity8- Acute renal failure9- S/P CABG X4 03/04/23 - BIPAP support as needed,- IV Solu-Medrol 20 mg daily- Continue Pulmicort Perforomist and Atrovent nebulizers- Mucomyst/Hypersal as needed- CTA chest reviewed, no PE, emphysema, small effusions, RLL 1.[address] chest in 6-8 weeks. Patient informed - Monitor renal function, nephrology following. s/p Lasix 40 mg X1- CXR noted with pulm edema-stable- PT/OT Overall improving at 0928 RPT #:[id number] OF REPORTPRProgress [id number]:28:00G.[id number] able for patient [id number]:29:13 [facility] 2023-03-10 09:00:00 [id number]+KtGvbrhjRdNX+1mSj2Wlmy S1h/hk9RJhprtj+[id number]:00:00 [facility] NoteREPORT#:[id number] REPORT STATUS: SignedDATE:03/10/23 TIME: 09 PATIENT: TEVIN NYE UNIT #: [id number]#: [id number] [place] [facility] [place] [birth year] AGE: 72 SEX: M ATTEND: Luci Villeda [facility] AUTHOR: Nicolasa Galeano PA-C * ALL edits or amendments must be made on the electronic/computer document * SubjectiveChief complaint:Pt seen and examined. He is sitting up in the bedside chair. No acute distress. States still with SOB and panic attacks. On 1 liters NC. Objective GeneralVS:Vital Signs: Date Time Temp Pulse Resp B/P B/P Pulse O2 O2 Flow FiO2 Mean Ox Delivery Rate 07/03 0800 171/78 112 07/03 0800 80 29 193/76 113 95 07/03 0730 165/82 113 07/03 0700 170/77 111 07/03 0700 71 24 193/76 113 95 07/03 0630 149/63 100 07/03 0619 162/74 106 07/03 0530 163/76 109 07/03 0433 97.5 63 23 155/56 89 97 07/03 0430 97.3 64 24 166/60 98 98 07/03 0401 97.3 65 11 162/63 97 96 07/03 0400 98.0 Room air 07/03 0400 97.3 66 14 162/65 98 100 07/03 0356 97 Nasal 2 cannula 07/03 0330 97.2 66 26 162/57 93 07/03 0301 97.0 65 23 156/54 90 99 07/03 0230 147/69 99 07/03 0230 97.0 59 19 136/51 79 99 07/03 0201 142/67 96 07/03 0201 97.0 59 18 136/49 78 99 07/03 0200 97.0 59 18 135/49 78 99 07/03 0130 160/72 104 07/03 0130 97.2 59 18 145/51 83 99 07/03 0100 138/75 99 07/03 0100 97.0 63 17 155/58 94 99 07/03 0030 134/64 91 07/03 0030 97.2 56 17 123/46 72 99 07/03 0000 98.0 Nasal 3 cannula 07/03 0000 137/67 94 07/03 0000 97.3 58 18 129/49 76 99 07/02 2330 97.5 62 21 150/58 91 98 07/02 2300 153/73 105 07/02 2300 97.5 60 18 145/54 86 89 07/02 2230 146/68 98 07/02 2230 97.9 60 20 139/51 80 91 07/02 2200 141/64 92 07/02 2200 98.2 56 23 132/48 75 98 07/02 2130 98.2 59 23 154/56 89 100 07/02 2100 158/77 110 07/02 2100 98.1 67 34 164/70 102 94 07/02 2030 161/77 110 07/02 1999 97.3 Nasal 3 cannula 07/02 1999 Nasal 3 cannula 07/02 1999 145/69 99 07/02 1999 98.4 64 23 147/53 84 99 07/02 1930 98.6 67 24 147/53 83 99 07/02 1906 95 Room air 21 07/02 1800 184/81 116 07/02 1800 98.6 77 26 184/65 102 100 07/02 1734 78 28 186/81 116 98 07/02 1700 155/71 102 07/02 1700 98.6 69 26 154/54 85 96 07/02 1630 163/74 106 07/02 1630 98.6 66 15 140/56 83 100 07/02 1625 94 Room air 21 07/02 1600 144/65 94 07/02 1600 98.6 65 24 144/49 76 93 07/02 1530 153/70 101 07/02 1530 98.4 67 24 148/58 84 93 07/02 1510 139/66 95 07/02 1510 98.6 72 30 184/64 96 94 07/02 1430 159/68 98 07/02 1430 98.4 71 39 168/60 91 92 07/02 1400 154/70 100 07/02 1400 98.6 67 24 143/55 84 93 07/02 1330 118/58 84 07/02 1330 98.4 65 29 139/45 72 92 07/02 1300 124/58 84 07/02 1300 98.2 66 26 134/45 71 93 07/02 1235 95 Room air 21 07/02 1230 123/58 84 07/02 1230 98.1 64 27 125/47 71 93 07/02 1200 111/56 80 07/02 1200 98.1 62 27 123/46 68 93 07/02 1138 128/65 89 07/02 1138 98.1 64 35 128/45 75 96 07/02 1100 150/67 96 07/02 1100 97.2 60 29 155/57 88 95 07/02 1030 146/53 81 07/02 1030 97.2 60 24 137/63 91 93 07/02 1000 135/54 80 07/02 1000 97.3 61 25 135/65 93 92 07/02 0930 150/51 80 07/02 0930 97.3 60 22 136/62 89 92 PATIENT WEIGHT: Weight (lb): 194Weight (oz): 14.22Weight (kg): 88.400 Medications:Active Meds + DC'd Last 24 HrsMetoprolol Tartrate (LOPRESSOR) 25 MG Q12HR PO Furosemide (LASIX 40 mg/4 mL INJECTION) 40 MG ONCE ONE IV (DC) Amlodipine Besylate (NORVASC) 10 MG DAILY PO Calcium Gluconate (Calcium Gluconate 1 GM/NS 50 mL (B2)) 50 ML ONCE ONE IV (DC) Alprazolam (XANAX 0.25) 0.25 MG NOW ONE PO (DC) Furosemide (LASIX 40 mg/4 mL INJECTION) 40 MG ONCE ONE IV (CAN) Furosemide (LASIX 40 mg/4 mL INJECTION) 40 MG ONCE ONE IV (DC) Amlodipine Besylate (NORVASC) 5 MG DAILY PO (DC) Fluoxetine HCl (PROzac) 10 MG DAILY PO Insulin Human Lispro (HUMALOG) 0 AC HS SUBQ Methylprednisolone Sodium Succinate (Solu-Medrol 40 MG Vial) 20 MG DAILY IV Metoprolol Tartrate (LOPRESSOR) 12.5 MG Q12HR PO (DC) Ipratropium [place] (ATROVENT) 500 MCG RTQ2H PRN PRN INH Amiodarone HCl (CORDARONE) 400 MG Q12HR PO (CKD) Cyanocobalamin (Vitamin B-12 500 mcg tab) 500 MCG DAILY PO Ferrous Sulfate (FERROUS SULFATE) 325 MG DAILY PO Calcium Carbonate (TUMS CHEW TAB) 1,000 MG Q6H PRN PRN PO Bisacodyl (DULCOLAX) 10 MG ONCE PRN RECTAL Atorvastatin Calcium (LIPITOR) 40 MG 2100 PO Budesonide (PULMICORT RESPULES) 0.5 MG RTBID INH Formoterol Fumarate (PERFOROMIST) 20 MCG RTBID NEB Sterile Water (WATER FOR INJECTION) 1 ML ASDIR PRN IV Tamsulosin HCl (Flomax 0.4 mg) 0.8 MG PC BK PO Clopidogrel Bisulfate (Plavix) 75 MG DAILY PO Mupirocin (BACTROBAN 2% 22 GM OINTMENT) 1 APPLIC BID NASAL (DC) Polyethylene Glycol (MIRALAX) 17 GM DAILY PO Amiodarone HCl (AMIODARONE HCL) 450 MG ASDIR IV (CKD) Dextrose/Water (D5%W NON-DEHP) 250 MLPantoprazole (PROTONIX) 40 MG DAILY@0600 PO Aspirin (ASPIRIN) 81 MG DAILY PO Docusate Sodium (COLACE) 100 MG BID PO Sennosides (Senna Lax 8.6 MG TABLET) 17.2 MG BEDTIME PO Acetaminophen (TYLENOL) 650 MG Q4H PRN PRN PO Acetaminophen (TYLENOL) 650 MG Q4H PRN PRN RECTAL Calcium Chloride (CALCIUM CHLORIDE) 1 GM ASDIR PRN IV Dextrose/Water (DEXTROSE 10% IN WATER) 125 ML ASDIR PRN IV (CKD) Dextrose/Water (DEXTROSE 10% IN WATER) 250 ML ASDIR PRN IV (CKD) Epinephrine (ADRENALIN CHLORIDE) 4 MG ASDIR IV Dextrose/Water (DEXTROSE 5% WATER) 246 MLGlucagon (GLUCAGON) 1 MG ASDIR PRN IM Magnesium Sulfate (MAGNESIUM SULFATE 4GM/SWFI 100ML) 100 ML ASDIR PRN IV Magnesium Sulfate (MAGNESIUM SULFATE 2GM/SWFI 50ML) 50 ML ASDIR PRN IV Magnesium Sulfate/Dextrose (MAGNESIUM SULFATE 1GM/D5W 100ML) 100 ML ASDIR PRN IV Nitroglycerin/Dextrose (NITROGLYCERIN 50,000MCG/D5W 250ML) 250 ML ASDIR IV Norepinephrine Bitartrate (NOREPINEPHRINE 8 MG/NS 250 ML) 250 ML TITRATE IV (DC) Ondansetron HCl (ZOFRAN) 4 MG Q6H PRN PRN IV Potassium Chloride (KCL 20MEQ/SWFI 100ML) 100 ML ASDIR PRN IV Sodium Bicarbonate (SODIUM BICARBONATE) 50 MEQ ASDIR PRN IV Functional ProgressFunctional progress:ctherapy evals pending. Physical ExamGeneral appearance: alert, awakeHEENT: anicteric, mucosal membranes moist, sclera clearNeck: supple, no JVDCardiovascular: regular rate rhythm, S1/O2Iedknmlcmrh: on oxygen (1 liter NC ), aerating well, clear bilaterallyAbdomen: bowel sounds present, non-distended, soft, non-tenderSkin: incision (C/D/I ), dry, intact, no rashMusculoskeletal - general: Musculoskeletal - general: swelling (ble), joints normal, normal muscle mass,range of motion normal, strength testing normal, no atrophyNeuro/SALES ASSISTANT: alert, oriented X 3, normal speech, no motor deficits, no sensory deficits ResultsFindings/Data:Laboratory Tests: 03/10 03/10 03/10 03/09 0831 [id number] 1939 Blood Gas Puncture Site Art Line O2 Saturation (90 - 100 %) 97.7 ABG pH (7.35 - 7.45) 7.438 ABG pCO2 (35.0 - 45 mmHg) 39.5 ABG pO2 (80 - 100.0 mmHg) 93.2 ABG HCO3 (22.0 - 26.0 MMOL/L) 26.9 H ABG Total CO2 28.2 ABG Base Excess (-4.0 - 4.0 MMOL/L) 2.5 ABG Hematocrit (37.5 - 50.7 %) 32 L ABG Hemoglobin (12.5 - 16.9 G/DL) 11.0 L Shayla Test Positive Sodium (134 - 147 mmol/L) 147 Potassium (3.4 - 5.0 mmol/L) 4.0 Chloride (100 - 108 mmol/L) 110 H Ionized Calcium (1.12 - 1.32 MMOL/L) 1.16 Lactic Acid (0.9 - 1.7 mmol/l) 0.4 L Temperature (F) 97.2 O2 Delivery Device HFNC Chemistry Sodium (134 - 147 mEq/L) 143 Potassium (3.4 - 5.0 mEq/L) 4.1 Chloride (100 - 108 mEq/L) 109 H Carbon Dioxide (21 - 33 mEq/l) 30 Anion Gap (0 - 20) 8 BUN (7 - 18 mg/dL) 55 H Creatinine (0.6 - 1.3 mg/dL) 1.5 H POC Creatinine (0.8 - 1.3 mg/dL) 1.4 H Glomerular Filtr Rate (70 - 80) 49.5 L Glucose (70 - 110 mg/dL) 174 H POC Glucose (70 - 110 MG/DL) 198 H 173 H POC Glucose (mg/dL) (70 - 110 MG/DL) 147 H Calcium (8.0 - 10.5 mg/dL) 8.2 Ionized Calcium [place] (1.09 - 1.30 MMOL/L) 1.09 Magnesium (1.80 - 2.40 mg/dL) 2.52 H Hematology WBC (4.5 - 11.0 x10 3/uL) 5.3 RBC (4.00 - 5.60 x10 6/uL) 3.59 L Hgb (12.5 - 16.9 g/dL) 10.6 L Hct (37.5 - 50.7 %) 32.4 L MCV (81.0 - 99.0 fL) 90.3 MCH (27.0 - 33.0 pg) 29.5 MCHC (33.0 - 37.0 g/dL) 32.7 L RDW (11.5 - 14.5 %) 15.2 H Plt Count (150 - 400 x10 3/uL) 135 L MPV (7.0 - 9.0 fL) 11.3 H Neut % (Auto) (56.0 - 77.0 %) 82.4 H Lymph % (Auto) (14.0 - 32.0 %) 6.5 L [place] % (Auto) (4.8 - 9.0 %) 9.5 H Eos % (Auto) (0.3 - 3.7 %) 0.4 Baso % (Auto) (0.0 - 2.0 %) 0.2 Neut # (Auto) (2.0 - 7.6 x10 3/uL) 4.33 Lymph # (Auto) (1.0 - 3.8 x10 3/uL) 0.34 L [place] # (Auto) (0.1 - 0.8 x10 3/uL) 0.50 Eos # (Auto) (0.0 - 0.2 x10 3/uL) 0.02 Baso # (Auto) (0.0 - 0.2 x10 3/uL) 0.01 Abs Immat Gran (auto) (0.00 - 0.03 x10 3/uL) 0.05 H Add Manual Diff NO Immature Gran % (0.0 - 2.0 %) 1.0 Nucleated RBC % (0 - 0 %) 0.0 Nucleated RBCs # (Man) (0.0 - 0.1 x10 3/uL) 0.00 07/02 07/ 1540 1028 Chemistry Sodium (134 - 147 mEq/L) 142 Potassium (3.4 - 5.0 mEq/L) 4.4 Chloride (100 - 108 mEq/L) 109 H Carbon Dioxide (21 - 33 mEq/l) 27 Anion Gap (0 - 20) 10 BUN (7 - 18 mg/dL) 61 H Creatinine (0.6 - 1.3 mg/dL) 1.8 H Glomerular Filtr Rate (70 - 80) 39.7 L Glucose (70 - 110 mg/dL) 228 H POC Glucose (70 - 110 MG/DL) 197 H Calcium (8.0 - 10.5 mg/dL) 8.7 Radiology data:Recent Impressions:RADIOLOGY - XR CHEST 1 V 03/10 514 Report Impression - Status: SIGNED Entered: 03/10/2023 0734 IMPRESSION: 1. Small to moderate bilateral pleural effusions. 2. Moderate pulmonary edema versus infiltrates, pneumonia. 3. Dqaj-fb-cjpjligfmx enlarged cardiac silhouette. Impression By: [email or web address] - David Espinal M.D. Diagnosis, Assessment PlanFree Text A P:Pt is a 72 yr old male admitted with NSTEMI, Multivessel CAD, Acute COPD exacerbation/postop respiratory failure, recent pulmonary embolism on Eliquis, Hypertension, History of tobacco use, Obesity, Acute renal failure due to ATN contrast induced, S/P CABG X4 03/04/23. Plan: PT/OT consulted. He is noted to be MOD A with mobility and fatigues eaisily. He lives at home alone and given his multiple medical issues including COPD exacerbation/s/p CABG with AKF he would benefit from IRF for close daily MD FU and aggressive rehab. Monitor volume status and BP. Wean O2 along with Prednisone. Thank you for allowing us to particapte in angela care of the pt. Will continue to follow. 03/10:PT /OT to follow. Making progress. He is on 1 liter. Giving diuretics. Pt wanting to DC home with HH now. Consultants: anesthesiology, cardiology, cardiovascular surgery, critical/osteopathy doctor, hospitalistRehab attestation:Face to face exam completed. Treatment plan discussed with patient. Meets continued stay criteria. Agree with interdisciplinary treatment plan. at 1446 RPT #:[id number] OF REPORTPRProgress [id number]:00:00G.[id number] able for patient feokKSDDTTJXMYJDEM4591-12-86W51:46:42 [facility] 2023-03-10 06:54:00 [id number] PcfEbdh7j8BPHitY/e3ozUYo5wqfd Ix4QA+abZYnkO8ilh/5MvfEqBpK8765-61-73M28:54:00 [facility] ([facility])Cardiology Progress NoteREPORT#:[id number] REPORT STATUS: SignedDATE:03/10/23 TIME: 0654 PATIENT: TEVIN NYE UNIT #: [id number]#: [id number] [address] [birth year] AGE: 72 SEX: M ATTEND: Luci Villeda MDADM AUTHOR: Anuj Sylvester MD * ALL edits or amendments must be made on the electronic/computer document * SubjectiveChief complaint:Better Objective GeneralVS/I O:24 hour I O ending at 0700: 03/10 0700 07/02 1900 Intake Total 530.00 1700 Output Total 1100 1470 Balance -570.00 230 Intake, IV 50.00 Intake, Oral 480 980 Intake, Oral 720 Supplement Number 1 2 Bowel Movements Output, Urine 1100 1470 Patient 88.4 kg Weight Weight Standing scale Measurement Method Vital Signs: Date Time Temp Pulse Resp B/P B/P Pulse O2 O2 Flow FiO2 Mean Ox Delivery Rate / 0433 97.5 63 23 155/56 89 97 07/03 0430 97.3 64 24 166/60 98 98 07/03 0401 97.3 65 11 162/63 97 96 07/03 0400 98.0 Room air 07/03 0400 97.3 66 14 162/65 98 100 07/03 0356 97 Nasal 2 cannula 07/ 0330 97.2 66 26 162/57 93 07/03 0301 97.0 65 23 156/54 90 99 07/03 0230 147/69 99 07/03 0230 97.0 59 19 136/51 79 99 07/03 0201 142/67 96 07/03 0201 97.0 59 18 136/49 78 99 07/03 0200 97.0 59 18 135/49 78 99 07/03 0130 160/72 104 07/03 0130 97.2 59 18 145/51 83 99 07/03 0100 138/75 99 07/03 0100 97.0 63 17 155/58 94 99 07/03 0030 134/64 91 07/03 0030 97.2 56 17 123/46 72 99 07/03 0000 98.0 Nasal 3 cannula 07/03 0000 137/67 94 07/03 0000 97.3 58 18 129/49 76 99 07/02 2330 97.5 62 21 150/58 91 98 07/02 2300 153/73 105 07/02 2300 97.5 60 18 145/54 86 89 07/02 2230 146/68 98 07/02 2230 97.9 60 20 139/51 80 91 07/02 2200 141/64 92 07/02 2200 98.2 56 23 132/48 75 98 07/02 2130 98.2 59 23 154/56 89 100 07/02 2100 158/77 110 07/02 2100 98.1 67 34 164/70 102 94 07/02 2030 161/77 110 07/02 1999 97.3 Nasal 3 cannula 07/02 1999 Nasal 3 cannula 07/02 1999 145/69 99 07/02 1999 98.4 64 23 147/53 84 99 07/02 1930 98.6 67 24 147/53 83 99 07/02 1906 95 Room air 21 07/02 1800 184/81 116 07/02 1800 98.6 77 26 184/65 102 100 07/02 1734 78 28 186/81 116 98 07/02 1700 155/71 102 07/02 1700 98.6 69 26 154/54 85 96 07/02 1630 163/74 106 07/02 1630 98.6 66 15 140/56 83 100 07/02 1625 94 Room air 21 07/02 1600 144/65 94 07/02 1600 98.6 65 24 144/49 76 93 07/02 1530 153/70 101 07/02 1530 98.4 67 24 148/58 84 93 07/02 1510 139/66 95 07/02 1510 98.6 72 30 184/64 96 94 07/02 1430 159/68 98 07/02 1430 98.4 71 39 168/60 91 92 07/02 1400 154/70 100 07/02 1400 98.6 67 24 143/55 84 93 07/02 1330 118/58 84 07/02 1330 98.4 65 29 139/45 72 92 07/02 1300 124/58 84 07/02 1300 98.2 66 26 134/45 71 93 07/02 1235 95 Room air 21 07/02 1230 123/58 84 07/02 1230 98.1 64 27 125/47 71 93 07/02 1200 111/56 80 07/02 1200 98.1 62 27 123/46 68 93 07/02 1138 128/65 89 07/02 1138 98.1 64 35 128/45 75 96 07/02 1100 150/67 96 07/02 1100 97.2 60 29 155/57 88 95 07/02 1030 146/53 81 07/02 1030 97.2 60 24 137/63 91 93 07/02 1000 135/54 80 07/02 1000 97.3 61 25 135/65 93 92 07/02 0930 150/51 80 07/02 0930 97.3 60 22 136/62 89 92 07/02 0900 130/61 87 07/02 0900 97.5 62 18 141/54 81 90 07/02 0830 159/70 100 07/02 0830 97.7 60 25 162/56 88 93 07/02 0807 168/59 95 07/02 0807 97.7 67 25 154/72 104 92 07/02 0730 162/70 101 07/02 0730 94 Room air 21 07/02 0730 97.9 67 29 158/57 89 93 07/02 0700 169/73 105 07/02 0700 62 23 166/58 92 92 PATIENT WEIGHT: Weight (lb): 194Weight (oz): 14.22Weight (kg): 88.400 Medications:Active Meds + DC'd Last 24 HrsCalcium Gluconate (Calcium Gluconate 1 GM/NS 50 mL (B2)) 50 ML ONCE ONE IV (DC) Alprazolam (XANAX 0.25) 0.25 MG NOW ONE PO (DC) Furosemide (LASIX 40 mg/4 mL INJECTION) 40 MG ONCE ONE IV (CAN) Furosemide (LASIX 40 mg/4 mL INJECTION) 40 MG ONCE ONE IV (DC) Amlodipine Besylate (NORVASC) 5 MG DAILY PO Fluoxetine HCl (PROzac) 10 MG DAILY PO Potassium Chloride (POTASSIUM CHLORIDE 20MEQ TAB.ER) 40 MEQ ONCE ONE PO (DC) Insulin Human Lispro (HUMALOG) 0 AC HS SUBQ Methylprednisolone Sodium Succinate (Solu-Medrol 40 MG Vial) 20 MG DAILY IV Metoprolol Tartrate (LOPRESSOR) 12.5 MG Q12HR PO Ipratropium [place] (ATROVENT) 500 MCG RTQ2H PRN PRN INH Amiodarone HCl (CORDARONE) 400 MG Q12HR PO (CKD) Cyanocobalamin (Vitamin B-12 500 mcg tab) 500 MCG DAILY PO Ferrous Sulfate (FERROUS SULFATE) 325 MG DAILY PO Calcium Carbonate (TUMS CHEW TAB) 1,000 MG Q6H PRN PRN PO Bisacodyl (DULCOLAX) 10 MG ONCE PRN RECTAL Atorvastatin Calcium (LIPITOR) 40 MG 2100 PO Budesonide (PULMICORT RESPULES) 0.5 MG RTBID INH Formoterol Fumarate (PERFOROMIST) 20 MCG RTBID NEB Sterile Water (WATER FOR INJECTION) 1 ML ASDIR PRN IV Tamsulosin HCl (Flomax 0.4 mg) 0.8 MG PC BK PO Clopidogrel Bisulfate (Plavix) 75 MG DAILY PO Mupirocin (BACTROBAN 2% 22 GM OINTMENT) 1 APPLIC BID NASAL (DC) Polyethylene Glycol (MIRALAX) 17 GM DAILY PO Amiodarone HCl (AMIODARONE HCL) 450 MG ASDIR IV (CKD) Dextrose/Water (D5%W NON-DEHP) 250 MLPantoprazole (PROTONIX) 40 MG DAILY@0600 PO Aspirin (ASPIRIN) 81 MG DAILY PO Docusate Sodium (COLACE) 100 MG BID PO Sennosides (Senna Lax 8.6 MG TABLET) 17.2 MG BEDTIME PO Acetaminophen (TYLENOL) 650 MG Q4H PRN PRN PO Acetaminophen (TYLENOL) 650 MG Q4H PRN PRN RECTAL Calcium Chloride (CALCIUM CHLORIDE) 1 GM ASDIR PRN IV Dextrose/Water (DEXTROSE 10% IN WATER) 125 ML ASDIR PRN IV (CKD) Dextrose/Water (DEXTROSE 10% IN WATER) 250 ML ASDIR PRN IV (CKD) Epinephrine (ADRENALIN CHLORIDE) 4 MG ASDIR IV Dextrose/Water (DEXTROSE 5% WATER) 246 MLGlucagon (GLUCAGON) 1 MG ASDIR PRN IM Magnesium Sulfate (MAGNESIUM SULFATE 4GM/SWFI 100ML) 100 ML ASDIR PRN IV Magnesium Sulfate (MAGNESIUM SULFATE 2GM/SWFI 50ML) 50 ML ASDIR PRN IV Magnesium Sulfate/Dextrose (MAGNESIUM SULFATE 1GM/D5W 100ML) 100 ML ASDIR PRN IV Nitroglycerin/Dextrose (NITROGLYCERIN 50,000MCG/D5W 250ML) 250 ML ASDIR IV Norepinephrine Bitartrate (NOREPINEPHRINE 8 MG/NS 250 ML) 250 ML TITRATE IV (DC) Ondansetron HCl (ZOFRAN) 4 MG Q6H PRN PRN IV Potassium Chloride (KCL 20MEQ/SWFI 100ML) 100 ML ASDIR PRN IV Sodium Bicarbonate (SODIUM BICARBONATE) 50 MEQ ASDIR PRN IV Physical ExamGeneral appearance: alert, awakeNeck: full range of motion, non-tender, normal thyroid, supple/no meningismus, no bruit/NL carotids, no JVD, no lymphadenopathy, no masses or swellingCardiovascular: CV assessment: regular rate and rhythmRespiratory: decreased breath sounds, clear to auscultationAbdomen: non-tender, normal bowel sounds, no distention, no guarding, no mass/organomegaly, no pulsatile mass, no reboundUpper extremity: UE assessment: normal capillary refill, no edemaLower extremity: LE assessment: normal capillary refill, no edema ResultsFindings/Data:Laboratory Tests 03/10 315 Blood Gas Puncture Site Art Line O2 Saturation (90 - 100 %) 97.7 ABG pH (7.35 - 7.45) 7.438 ABG pCO2 (35.0 - 45 mmHg) 39.5 ABG pO2 (80 - 100.0 mmHg) 93.2 ABG HCO3 (22.0 - 26.0 MMOL/L) 26.9 H ABG Total CO2 28.2 ABG Base Excess (-4.0 - 4.0 MMOL/L) 2.5 ABG Hematocrit (37.5 - 50.7 %) 32 L ABG Hemoglobin (12.5 - 16.9 G/DL) 11.0 L Shayla Test Positive Sodium (134 - 147 mmol/L) 147 Potassium (3.4 - 5.0 mmol/L) 4.0 Chloride (100 - 108 mmol/L) 110 H Ionized Calcium (1.12 - 1.32 MMOL/L) 1.16 Lactic Acid (0.9 - 1.7 mmol/l) 0.4 L Temperature (F) 97.2 O2 Delivery Device [facility] Laboratory Tests 03/10 0315 1939 1540 1028Chemistry Sodium (134 - 147 mEq/L) 143 142 Potassium (3.4 - 5.0 mEq/L) 4.1 4.4 Chloride (100 - 108 mEq/L) 109 H 109 H Carbon Dioxide (21 - 33 mEq/l) 30 27 Anion Gap (0 - 20) 8 10 BUN (7 - 18 mg/dL) 55 H 61 H Creatinine (0.6 - 1.3 mg/dL) 1.5 H 1.8 H POC Creatinine (0.8 - 1.3 mg/dL) 1.4 H Glomerular Filtr Rate (70 - 80) 49.5 L 39.7 L Glucose (70 - 110 mg/dL) 174 H 228 H POC Glucose (70 - 110 MG/DL) 173 H 197 H POC Glucose (mg/dL) (70 - 110 MG/DL) 147 H Calcium (8.0 - 10.5 mg/dL) 8.2 8.7 Ionized Calcium [place] (1.09 - 1.30 MMOL/L) 1.09 Magnesium (1.80 - 2.40 mg/dL) 2.52 H Laboratory Tests 03/10 315 Hematology WBC (4.5 - 11.0 x10 3/uL) 5.3 RBC (4.00 - 5.60 x10 6/uL) 3.59 L Hgb (12.5 - 16.9 g/dL) 10.6 L Hct (37.5 - 50.7 %) 32.4 L MCV (81.0 - 99.0 fL) 90.3 MCH (27.0 - 33.0 pg) 29.5 MCHC (33.0 - 37.0 g/dL) 32.7 L RDW (11.5 - 14.5 %) 15.2 H Plt Count (150 - 400 x10 3/uL) 135 L MPV (7.0 - 9.0 fL) 11.3 H Neut % (Auto) (56.0 - 77.0 %) 82.4 H Lymph % (Auto) (14.0 - 32.0 %) 6.5 L [place] % (Auto) (4.8 - 9.0 %) 9.5 H Eos % (Auto) (0.3 - 3.7 %) 0.4 Baso % (Auto) (0.0 - 2.0 %) 0.2 Neut # (Auto) (2.0 - 7.6 x10 3/uL) 4.33 Lymph # (Auto) (1.0 - 3.8 x10 3/uL) 0.34 L [place] # (Auto) (0.1 - 0.8 x10 3/uL) 0.50 Eos # (Auto) (0.0 - 0.2 x10 3/uL) 0.02 Baso # (Auto) (0.0 - 0.2 x10 3/uL) 0.01 Abs Immat Gran (auto) (0.00 - 0.03 x10 3/uL) 0.05 H Add Manual Diff NO Immature Gran % (0.0 - 2.0 %) 1.0 Nucleated RBC % (0 - 0 %) 0.0 Nucleated RBCs # (Man) (0.0 - 0.1 x10 3/uL) 0.00 Laboratory Tests 03/10 0315 Chemistry Magnesium (1.80 - 2.40 mg/dL) 2.52 H Radiology data:Recent Impressions:RADIOLOGY - XR CHEST 1 V 03/09 08 Report Impression - Status: SIGNED Entered: 03/09/2023 0818 IMPRESSION: No significant change in the lungs.Impression By: BuckABDavid - Ezekiel Esteves M.D. Diagnosis, Assessment PlanConsultants: anesthesiology, cardiology, cardiovascular surgery, critical/osteopathy doctor, hospitalist Free Text DxA P NotesFree Text DxA P Notes:1- Severe COPD with exacerbation: As per Pulm2- Recent pulmonary embolism on Eliquis3- NSTEMI/Multivessel coronary artery disease: S/P CBBG, extubated and doing fair5- Hypertension" Will increase Norvasc 10mg and increase Metoprolol to 55 BID6- History of tobacco use7. Wide complex tachy: Asymptomatic and suggests AFIB/SVT with aberrancy, now resolved. On po amio8. Acute on chronic renal failure at 0656 RPT #:[id number] OF REPORTPRProgress [id number]:54:00G.[id number] able for patient lxbuUXIMIMVFQMCKPL4929-42-20R80:56:54 [facility] 2023-03-10 05:54:00 [id number]O y4ZkpQ/pi/Y3KhWRaeRJC7QTjuN9413-05-57X13:54:00 [facility] ProgREPORT#:[id number] REPORT STATUS: SignedDATE:03/10/23 TIME: 553 PATIENT: TEVIN NYE UNIT #: [id number]#: [id number] [address] [birth year] AGE: 72 SEX: M ATTEND: Luci Villeda [facility] AUTHOR: Evon Andrew Physic * ALL edits or amendments must be made on the electronic/computer document * GeneralPost-op: day 6Status post:03/04/23 CABG x 4 (MCCORMICK-LAD,SVG-Renea, SVG-OM, SVG-PDA) ALAA EVH (LGSV) Posterior pericardiotomy SubjectiveChief complaint:chest painFollow up CABG Review of SystemsConstitutional:Denies: chills, fatigue, generalized weakness. Skin:Denies: abrasion, bruising, laceration. Allergy/Immun:Denies: allergic reaction, anaphylaxis, rhinorrhea. Eyes:Denies: redness, visual loss/blurred, eye pain. ENT:Denies: ear ringing, throat swelling, toothache. Respiratory:Denies: [place] (dyspnea on exertion), pneumonia, SOB. Cardiovascular:Denies: chest pain, edema, orthopnea. GI:Denies: abdominal pain, anorexia, melena, nausea. :Denies: dysuria, flank pain. Musculoskeletal:Denies: arthritis, extremity pain, lumbar pain. Heme:Denies: adenopathy, bleeding, petechiae. Endocrine:Denies: cold intolerance, polydipsia, weight gain. Neuro:Denies: confusion, dizziness, seizure, syncope. All systems rev neg: except as marked Objective Physical ExamWound/incision: Location:sternal Site condition: edges approximated, incision intactHEENT: anicteric, mucosal membranes moist, pupils reactive to lightNeck: full range of motion, non-tenderCardiovascular: irregular rhythm, normal heart sounds, regular rate rhythmRespiratory: decreased breath sounds, aerating well, symmetric expansionAbdomen: soft, non-tenderGenitourinary: no bladder distentionExtremities: dry, moves allMusculoskeletal: full range of motionNeuro/SALES ASSISTANT: alert, oriented X 3Skin: dry, intactPsychiatry: normal affect, normal mood Diagnosis, Assessment PlanHospital course to date:This is a pleasant 72 year old male with past medical history of hypertension, dyslipidemia, DM-2 (on insulin), former smoker (quit 2018), BPH, prostate CA s/pradiation, COPD (uses inhaler at home, no home oxygen), and PE (November 2022 on eliquis) who presented to [facility] with chest pain, dyspnea on exertion, and NSTEMI. Coronary angiogram was done and revealed severe multivessel coronary artery disease. Patient was then transferred to [facility] for CV surgery evaluation and need for CABG. PLAN Admit patient to CVICUInitiate preop workupIncentive spirometer teachingCarotid ultrasoundBLE vein mappingCT chest non-contrastUA to r/o UTIEchocardiogramHeparin and Nitro dripConsult pulmonary, cardiology, and intensivistCoronary angiogram reviewed and patient will benefit from surgical revascularizaton. The surgery, risks involved, STS score, benefits, complications and alternatives were explained to the patient and his brother. He acknowledged understanding and is willing to proceed. We will tentatively schedule him for surgery tomorrow morning.Further recommendations to follow. 03/04/23CABG x 4 (MCCORMICK-LAD,SVG-Renea, SVG-OM, SVG-PDA)ALAAEVH (LGSV)Posterior pericardiotomy 03/05/23POD 1Patient alert, awake, and orientedLabs and CXR reviewedOn bipap 08/12 40%, wean off as toleratedTrend abgsWean off levo as toleratedKeep both chest tubesMonitor strict I Os and renal functionPT/OT, ambulate, OOB in chairDVT ppx with SCDsMonitor patient closely in CVICU 03/06/23POD 2Patient in stable conditionCXR and labs reviewedHGB 6.6, transfuse 2 units PRBCDiscontinue dopamine dripEchocardiogramDiscontinue both chest tubesCR increasing, renal following, UOP 25 cc/hrOOB in chairMonitor closely in CVICU 03/07/23POD 3Patient alert, awake, and oriented, no complaintsLabs and CXR reviewedOn 2l nasal cannula, encourage I-S useHgb stable 10.1Discontinue left pleural chest tubeOn amio drip 0.5Monitor renal function, Cr 2.9Consult rehabAmbulate patient with PT/OTKeep patient in CVICU 03/08/23POD 4Patient recovering wellCXR and labs reviewedWean oxygen off as toleratedNSR, off amio drip, continue poRenal following, CR improving now 2.5Encourage mobilization and I-S useKeep in CVICU 03/09/23POD 5Patient resting comfortable, out of bed in reclinerOn room airEncourage I-S useDiurese with lasix, CR 1.9Monitor strict I OsRehab consultedKeep central line and foleyPT/OTMonitor patient in CVICU 03/10/23POD 0MEOm5Szwbzrqscbn: On room air 97%, Encourage IS, Deep Breathing, CXR reviewed Cardiac: Remains sinus rhythm, pacing wires on standbyGI: + BM, Continue Bowel regimenGU: DC Valencia todayUO:1450, diuresing well.Continue PT/OTDisposition: Rehab versus homeDVT prophylaxisLabs reveiwed- replace electrolytes as neededPatient seen and examined by Dr. Villeda. Plan of care discussed with multidisciplinary teamDC neck line Consultants: anesthesiology, cardiology, cardiovascular surgery, critical/osteopathy doctor, hospitalist at 1643 at 1842 RPT #:[id number] OF REPORTPRProgress [id number]:54:00G.[id number] able for patient mbfoGWNMLRMWJWIHKR0658-67-48M93:43:54 [facility] 2023-03-09 11:44:00 [id number] e+iwaSLH7XGr7TXZl9DuHP3XupayX fdy/c+jecTVdzIxGoP9LE1TDvea9556-19-31H17:44:00 [facility] ([facility])Cardiology Progress NoteREPORT#:[id number] REPORT STATUS: SignedDATE:03/09/23 TIME: 1144 PATIENT: TEVIN NYE UNIT #: [id number]#: [id number] [address] [birth year] AGE: 72 SEX: M ATTEND: Luci Villeda [facility] AUTHOR: Willie Lorenzana MD * ALL edits or amendments must be made on the electronic/computer document * SubjectiveChief complaint:Better Objective GeneralVS/I O:24 hour I O ending at 0700: 02 0700 07/ 1900 Intake Total 400 1471.00 Output Total 800 1645 Balance -400 -174.00 Intake, IV 31.00 Intake, Oral 400 720 Intake, Oral 720 Supplement Number 1 Bowel Movements Output, Urine 800 1645 Patient 89.8 kg Weight Weight Standing scale Measurement Method Vital Signs: Date Time Temp Pulse Resp B/P B/P Pulse O2 O2 Flow FiO2 Mean Ox Delivery Rate / 1000 135/54 80 07/02 1000 36.3 61 25 135/65 93 92 07/02 0930 150/51 80 07/02 0930 36.3 60 22 136/62 89 92 07/02 0900 130/61 87 07/02 0900 36.4 62 18 141/54 81 90 07/02 0830 159/70 100 07/02 0830 36.5 60 25 162/56 88 93 07/02 0807 168/59 95 07/02 0807 36.5 67 25 154/72 104 92 07/02 0730 162/70 101 07/02 0730 94 Room air 21 07/ 0730 36.6 67 29 158/57 89 93 07/02 0700 169/73 105 07/02 0700 62 23 166/58 92 92 07/02 0601 165/73 105 07/02 0600 66 25 170/62 97 96 07/02 0501 139/65 93 07/02 0500 60 24 153/58 87 98 07/02 0400 155/56 85 07/02 0400 61 22 144/63 91 99 07/02 0314 98 Nasal 2 cannula 07/02 0301 63 26 130/65 91 98 07/02 0200 152/55 83 07/02 0200 61 24 140/63 91 97 07/02 0100 146/50 80 07/02 0100 61 27 131/66 93 98 07/02 0000 138/50 77 07/02 0000 64 30 127/60 86 97 07/01 2301 129/45 70 07/01 2300 61 33 121/45 70 96 07/01 2200 139/54 83 07/01 2200 71 28 139/73 101 96 07/01 2100 184/64 101 07/01 2100 78 28 166/79 113 96 07/01 2047 94 Nasal 2 28 cannula 07/01 1999 161/55 88 07/01 1999 37.1 64 20 152/74 107 98 07/01 1900 36.8 07/01 1900 High flow 4 nasal cannula 07/01 1900 158/53 84 07/01 1900 37.1 66 22 144/67 96 97 07/01 1845 165/60 93 07/01 1845 37.0 70 25 166/73 105 96 07/01 1830 162/60 92 07/01 1830 37.0 71 27 145/65 99 94 07/01 1815 179/59 95 07/01 1815 36.9 71 26 162/72 103 96 07/01 1800 178/54 90 07/01 1800 36.9 70 21 179/74 107 97 07/01 1745 146/45 73 07/01 1745 36.9 66 26 133/63 91 98 07/01 1730 162/53 86 07/01 1730 36.8 67 25 159/72 103 97 07/01 1716 170/59 93 07/01 1716 36.8 69 33 158/70 101 97 07/01 1700 176/62 97 07/01 1700 36.8 70 24 164/92 116 96 07/01 1646 162/63 95 07/01 1646 36.8 66 25 139/91 107 96 07/01 1630 160/56 86 07/01 1630 36.8 62 20 142/67 97 98 07/01 1615 168/57 88 07/01 1615 36.9 62 19 146/74 104 97 07/01 1600 163/55 84 07/01 1600 36.9 63 21 145/69 100 97 07/01 1545 171/57 88 07/01 1545 37.0 64 18 146/70 101 97 07/01 1530 168/57 86 07/01 1530 37.0 63 20 136/66 95 97 07/01 1515 172/58 87 07/01 1515 37.1 64 25 143/66 97 96 07/01 1500 171/58 88 07/01 1500 37.1 66 23 144/69 99 95 07/01 1446 145/122 130 07/01 1446 98 High flow 4 nasal cannula 07/01 1446 37.1 68 29 147/65 94 98 07/01 1430 138/59 86 07/01 1430 37.1 66 32 128/58 87 98 07/01 1415 158/58 87 07/01 1415 37.2 65 21 140/67 97 99 07/01 1400 151/53 80 07/01 1400 37.2 65 24 140/65 94 100 07/01 1345 149/55 81 07/01 1345 37.2 65 26 133/62 89 98 07/01 1332 158/66 96 07/01 1332 37.2 69 24 158/68 98 100 07/01 1215 133/55 78 07/01 1215 37.3 62 28 116/60 81 99 07/01 1200 137/53 75 07/01 1200 37.3 61 25 109/58 79 99 07/01 1145 155/60 89 07/01 1145 37.3 61 25 133/65 89 100 PATIENT WEIGHT: Weight (lb): 197Weight (oz): 15.6Weight (kg): 89.800 Medications:Active Meds + DC'd Last 24 HrsFurosemide (LASIX 40 mg/4 mL INJECTION) 40 MG ONCE ONE IV (DC) Amlodipine Besylate (NORVASC) 5 MG DAILY PO Fluoxetine HCl (PROzac) 10 MG DAILY PO Potassium Chloride (POTASSIUM CHLORIDE 20MEQ TAB.ER) 40 MEQ ONCE ONE PO (DC) Insulin Human Lispro (HUMALOG) 0 AC HS SUBQ Methylprednisolone Sodium Succinate (Solu-Medrol 40 MG Vial) 20 MG DAILY IV Metoprolol Tartrate (LOPRESSOR) 12.5 MG Q12HR PO Ipratropium [place] (ATROVENT) 500 MCG RTQ2H PRN PRN INH Amiodarone HCl (CORDARONE) 400 MG Q12HR PO (CKD) Cyanocobalamin (Vitamin B-12 500 mcg tab) 500 MCG DAILY PO Ferrous Sulfate (FERROUS SULFATE) 325 MG DAILY PO Calcium Carbonate (TUMS CHEW TAB) 1,000 MG Q6H PRN PRN PO Bisacodyl (DULCOLAX) 10 MG ONCE PRN RECTAL Atorvastatin Calcium (LIPITOR) 40 MG 2100 PO Budesonide (PULMICORT RESPULES) 0.5 MG RTBID INH Formoterol Fumarate (PERFOROMIST) 20 MCG RTBID NEB Sterile Water (WATER FOR INJECTION) 1 ML ASDIR PRN IV Tamsulosin HCl (Flomax 0.4 mg) 0.8 MG PC BK PO Clopidogrel Bisulfate (Plavix) 75 MG DAILY PO Mupirocin (BACTROBAN 2% 22 GM OINTMENT) 1 APPLIC BID NASAL Polyethylene Glycol (MIRALAX) 17 GM DAILY PO Amiodarone HCl (AMIODARONE HCL) 450 MG ASDIR IV (CKD) Dextrose/Water (D5%W NON-DEHP) 250 MLPantoprazole (PROTONIX) 40 MG DAILY@0600 PO Aspirin (ASPIRIN) 81 MG DAILY PO Docusate Sodium (COLACE) 100 MG BID PO Sennosides (Senna Lax 8.6 MG TABLET) 17.2 MG BEDTIME PO Acetaminophen (TYLENOL) 650 MG Q4H PRN PRN PO Acetaminophen (TYLENOL) 650 MG Q4H PRN PRN RECTAL Calcium Chloride (CALCIUM CHLORIDE) 1 GM ASDIR PRN IV Dextrose/Water (DEXTROSE 10% IN WATER) 125 ML ASDIR PRN IV (CKD) Dextrose/Water (DEXTROSE 10% IN WATER) 250 ML ASDIR PRN IV (CKD) Epinephrine (ADRENALIN CHLORIDE) 4 MG ASDIR IV Dextrose/Water (DEXTROSE 5% WATER) 246 MLGlucagon (GLUCAGON) 1 MG ASDIR PRN IM Magnesium Sulfate (MAGNESIUM SULFATE 4GM/SWFI 100ML) 100 ML ASDIR PRN IV Magnesium Sulfate (MAGNESIUM SULFATE 2GM/SWFI 50ML) 50 ML ASDIR PRN IV Magnesium Sulfate/Dextrose (MAGNESIUM SULFATE 1GM/D5W 100ML) 100 ML ASDIR PRN IV Nitroglycerin/Dextrose (NITROGLYCERIN 50,000MCG/D5W 250ML) 250 ML ASDIR IV Norepinephrine Bitartrate (NOREPINEPHRINE 8 MG/NS 250 ML) 250 ML TITRATE IV (DC) Ondansetron HCl (ZOFRAN) 4 MG Q6H PRN PRN IV Potassium Chloride (KCL 20MEQ/SWFI 100ML) 100 ML ASDIR PRN IV Sodium Bicarbonate (SODIUM BICARBONATE) 50 MEQ ASDIR PRN IV Physical ExamGeneral appearance: alert, awakeNeck: full range of motion, non-tender, normal thyroid, supple/no meningismus, no bruit/NL carotids, no JVD, no lymphadenopathy, no masses or swellingCardiovascular: CV assessment: regular rate and rhythmRespiratory: decreased breath sounds, clear to auscultationAbdomen: non-tender, normal bowel sounds, no distention, no guarding, no mass/organomegaly, no pulsatile mass, no reboundUpper extremity: UE assessment: normal capillary refill, no edemaLower extremity: LE assessment: normal capillary refill, no edema ResultsFindings/Data:Laboratory Tests 03/09 0202 Blood Gas Puncture Site Art Line O2 Saturation (90 - 100 %) 96.6 ABG pH (7.35 - 7.45) 7.455 H ABG pCO2 (35.0 - 45 mmHg) 39.2 ABG pO2 (80 - 100.0 mmHg) 81.3 ABG HCO3 (22.0 - 26.0 MMOL/L) 27.6 H ABG Total CO2 28.8 ABG Base Excess (-4.0 - 4.0 MMOL/L) 3.7 ABG Hematocrit (37.5 - 50.7 %) 33 L ABG Hemoglobin (12.5 - 16.9 G/DL) 11.1 L Shayla Test N/A Sodium (134 - 147 mmol/L) 143 Potassium (3.4 - 5.0 mmol/L) 3.9 Chloride (100 - 108 mmol/L) 106 Ionized Calcium (1.12 - 1.32 MMOL/L) 1.17 Lactic Acid (0.9 - 1.7 mmol/l) 0.6 L Temperature (F) 98.3 O2 Delivery Device HFNC Laboratory Tests 03/09 03/09 03/09 03/09 03/09 1028 0403 0202 0156 0114 Chemistry Sodium (134 - 147 mEq/L) 144 Potassium (3.4 - 5.0 mEq/L) 3.9 Chloride (100 - 108 mEq/L) 108 Carbon Dioxide (21 - 33 mEq/l) 30 Anion Gap (0 - 20) 10 BUN (7 - 18 mg/dL) 67 H Creatinine (0.6 - 1.3 mg/dL) 1.9 H POC Creatinine (0.8 - 1.3 mg/dL) 1.9 H Glomerular Filtr Rate (70 - 80) 37.3 L Glucose (70 - 110 mg/dL) 224 H POC Glucose (70 - 110 MG/DL) 197 H 123 H 244 H POC Glucose (mg/dL) (70 - 110 MG/DL) 212 H Calcium (8.0 - 10.5 mg/dL) 8.6 Magnesium (1.80 - 2.40 mg/dL) 2.70 H 03/09 03/08 03/08 03/08 03/08 0034 2331 2131 1934 1818 Chemistry Sodium (134 - 147 mEq/L) 143 Potassium (3.4 - 5.0 mEq/L) 4.2 Chloride (100 - 108 mEq/L) 109 H Carbon Dioxide (21 - 33 mEq/l) 29 Anion Gap (0 - 20) 9 BUN (7 - 18 mg/dL) 67 H Creatinine (0.6 - 1.3 mg/dL) 2.0 H Glomerular Filtr Rate (70 - 80) 35.0 L Glucose (70 - 110 mg/dL) 243 H POC Glucose (70 - 110 MG/DL) 252 H 215 H 193 H 234 H Calcium (8.0 - 10.5 mg/dL) 8.2 03/08 1546 Chemistry POC Glucose (70 - 110 MG/DL) 218 H Laboratory Tests 03/09 0156 Hematology WBC (4.5 - 11.0 x10 3/uL) 5.6 RBC (4.00 - 5.60 x10 6/uL) 3.50 L Hgb (12.5 - 16.9 g/dL) 10.5 L Hct (37.5 - 50.7 %) 31.8 L MCV (81.0 - 99.0 fL) 90.9 MCH (27.0 - 33.0 pg) 30.0 MCHC (33.0 - 37.0 g/dL) 33.0 RDW (11.5 - 14.5 %) 15.7 H Plt Count (150 - 400 x10 3/uL) 119 L MPV (7.0 - 9.0 fL) 11.3 H Neut % (Auto) (56.0 - 77.0 %) 85.6 H Lymph % (Auto) (14.0 - 32.0 %) 4.6 L [place] % (Auto) (4.8 - 9.0 %) 9.1 H Eos % (Auto) (0.3 - 3.7 %) 0.0 L Baso % (Auto) (0.0 - 2.0 %) 0.0 Neut # (Auto) (2.0 - 7.6 x10 3/uL) 4.81 Lymph # (Auto) (1.0 - 3.8 x10 3/uL) 0.26 L [place] # (Auto) (0.1 - 0.8 x10 3/uL) 0.51 Eos # (Auto) (0.0 - 0.2 x10 3/uL) 0.00 Baso # (Auto) (0.0 - 0.2 x10 3/uL) 0.00 Abs Immat Gran (auto) (0.00 - 0.03 x10 3/uL) 0.04 H Add Manual Diff NO Immature Gran % (0.0 - 2.0 %) 0.7 Nucleated RBC % (0 - 0 %) 0.0 Nucleated RBCs # (Man) (0.0 - 0.1 x10 3/uL) 0.00 Laboratory Tests 03/09 0156 Chemistry Magnesium (1.80 - 2.40 mg/dL) 2.70 H Radiology data:Recent Impressions:RADIOLOGY - XR CHEST 1 V 03/09 08 Report Impression - Status: SIGNED Entered: 03/09/2023817 IMPRESSION: No significant change in the lungs.Impression By: BuckABDavid - Ezekiel Esteves M.D. Diagnosis, Assessment Plan Free Text DxA P NotesFree Text DxA P Notes:1- Severe COPD with exacerbation: As per Pulm2- Recent pulmonary embolism on Eliquis3- NSTEMI/Multivessel coronary artery disease: S/P CBBG, extubated and doing fair5- Hypertension" Will add Norvasc 5mg and increase Metoprolol to 25 BID6- History of tobacco use7. Wide complex tachy: Asymptomatic and suggests AFIB/SVT with aberrancy. Respomded to bolus of IV Amio. will increase po amio8. Acute on chronic renal failure pt is stable discussed with cvicu nurse and pt / stable stable hemodynamics continue above plan discussed with pt an d icu nurse at 1146 RPT #:[id number] OF REPORTPRProgress [id number]:44:00G.[id number] able for patient yqudRTMFQFPKUSDTWG0165-92-98U44:46:49 [facility] 2023-03-09 10:30:00 [id number] /UNQtWqLIgBqD78Qj9E5GXMH4/Martina /lzEms56Rc+G3qd0NZXbqswlSrT0422-31-04P96:30:00 [facility] ([facility])Pulmonology Progress NoteREPORT#:[id number] REPORT STATUS: SignedDATE:03/09/23 TIME: 1030 PATIENT: TEVIN NYE UNIT #: [id number]#: [id number] [address] [birth year] AGE: 72 SEX: M ATTEND: Luci Villeda [facility] AUTHOR: Jonh Velasquez MD * ALL edits or amendments must be made on the electronic/computer document * SubjectiveChief complaint:Chest painComments:Feels much betterOxygen weanPlan for A-line removal today ROS: no nausea/vomitting or chest pain Objective GeneralVS/I O:Last Documented: Result Date Time B/P 135/54 07/ 1000 B/P Mean 80 07/02 1000 Pulse Ox 92 07/ 1000 Temp 97.3 07/ 1000 Pulse 61 07/ 1000 Resp 25 03/09 1000 FiO2 21 03/09 0730 O2 Delivery Room air 07/02 0730 O2 Flow Rate 2 03/09 0314 24 hour I O ending at 0700: 03/08 1900 03/09 0700 Intake Total 1471.00 400 Output Total 1645 800 Balance -174.00 -400 Intake, IV 31.00 Intake, Oral 720 400 Intake, Oral 720 Supplement Number 1 Bowel Movements Output, Urine 1645 800 Patient 198 lb Weight Weight Standing scale Measurement Method PATIENT WEIGHT: Weight (lb): 197Weight (oz): 15.6Weight (kg): 89.800 Physical ExamGeneral appearance: chronically ill appearingHead/eyes: atraumatic, normocephalic, PERRLNeck: supple/no meningismus, no bruit/NL carotids, no JVD, no lymphadenopathyCardiovascular: normal S1/S2, no rub, no gallopRespiratory/chest: decreased breath sounds, prolonged exp phase, wheezing, symmetric expansionAbdomen: soft, normal bowel sounds, no distention, no guardingExtremities: no clubbing, no cyanosisNeuro/SALES ASSISTANT: alert, oriented X 3, no motor deficitsSkin: dry, normal colorPsychiatry: normal affect, no hallucinations ResultsFindings/Data:Laboratory Tests 03/08/23 1818:[Embedded Image Not Available] 03/09/23 0156:[Embedded Image Not Available]Laboratory Tests 03/09 0202 Blood Gas Puncture Site Art Line O2 Saturation (90 - 100 %) 96.6 ABG pH (7.35 - 7.45) 7.455 H ABG pCO2 (35.0 - 45 mmHg) 39.2 ABG pO2 (80 - 100.0 mmHg) 81.3 ABG HCO3 (22.0 - 26.0 MMOL/L) 27.6 H ABG Total CO2 28.8 ABG Base Excess (-4.0 - 4.0 MMOL/L) 3.7 ABG Hematocrit (37.5 - 50.7 %) 33 L ABG Hemoglobin (12.5 - 16.9 G/DL) 11.1 L Shayla Test N/A Sodium (134 - 147 mmol/L) 143 Potassium (3.4 - 5.0 mmol/L) 3.9 Chloride (100 - 108 mmol/L) 106 Ionized Calcium (1.12 - 1.32 MMOL/L) 1.17 Lactic Acid (0.9 - 1.7 mmol/l) 0.6 L Temperature (F) 98.3 O2 Delivery Device [facility] Laboratory Tests 03/08 03/08 03/08 03/08 03/08 1546 1818 1934 2131 2331 Chemistry Sodium (134 - 147 mEq/L) 143 Potassium (3.4 - 5.0 mEq/L) 4.2 Chloride (100 - 108 mEq/L) 109 H Carbon Dioxide (21 - 33 mEq/l) 29 Anion Gap (0 - 20) 9 BUN (7 - 18 mg/dL) 67 H Creatinine (0.6 - 1.3 mg/dL) 2.0 H Glomerular Filtr Rate (70 - 80) 35.0 L Glucose (70 - 110 mg/dL) 243 H POC Glucose (70 - 110 MG/DL) 218 H 234 H 193 H 215 H Calcium (8.0 - 10.5 mg/dL) 8.2 03/09 03/09 03/09 03/09 03/09 0034 0114 0156 0202 0403Chemistry Sodium (134 - 147 mEq/L) 144 Potassium (3.4 - 5.0 mEq/L) 3.9 Chloride (100 - 108 mEq/L) 108 Carbon Dioxide (21 - 33 mEq/l) 30 Anion Gap (0 - 20) 10 BUN (7 - 18 mg/dL) 67 H Creatinine (0.6 - 1.3 mg/dL) 1.9 H POC Creatinine (0.8 - 1.3 mg/dL) 1.9 H Glomerular Filtr Rate (70 - 80) 37.3 L Glucose (70 - 110 mg/dL) 224 H POC Glucose (70 - 110 MG/DL) 252 H 244 H 123 H POC Glucose (mg/dL) (70 - 110 MG/DL) 212 H Calcium (8.0 - 10.5 mg/dL) 8.6 Magnesium (1.80 - 2.40 mg/dL) 2.70 H Laboratory Tests 03/09 0156 Hematology WBC (4.5 - 11.0 x10 3/uL) 5.6 RBC (4.00 - 5.60 x10 6/uL) 3.50 L Hgb (12.5 - 16.9 g/dL) 10.5 L Hct (37.5 - 50.7 %) 31.8 L MCV (81.0 - 99.0 fL) 90.9 MCH (27.0 - 33.0 pg) 30.0 MCHC (33.0 - 37.0 g/dL) 33.0 RDW (11.5 - 14.5 %) 15.7 H Plt Count (150 - 400 x10 3/uL) 119 L MPV (7.0 - 9.0 fL) 11.3 H Neut % (Auto) (56.0 - 77.0 %) 85.6 H Lymph % (Auto) (14.0 - 32.0 %) 4.6 L [place] % (Auto) (4.8 - 9.0 %) 9.1 H Eos % (Auto) (0.3 - 3.7 %) 0.0 L Baso % (Auto) (0.0 - 2.0 %) 0.0 Neut # (Auto) (2.0 - 7.6 x10 3/uL) 4.81 Lymph # (Auto) (1.0 - 3.8 x10 3/uL) 0.26 L [place] # (Auto) (0.1 - 0.8 x10 3/uL) 0.51 Eos # (Auto) (0.0 - 0.2 x10 3/uL) 0.00 Baso # (Auto) (0.0 - 0.2 x10 3/uL) 0.00 Abs Immat Gran (auto) (0.00 - 0.03 x10 3/uL) 0.04 H Add Manual Diff NO Immature Gran % (0.0 - 2.0 %) 0.7 Nucleated RBC % (0 - 0 %) 0.0 Nucleated RBCs # (Man) (0.0 - 0.1 x10 3/uL) 0.00 Diagnosis, Assessment PlanFree Text A P:1- Acute COPD exacerbation/postop respiratory insufficiency2- Recent pulmonary embolism on Eliquis3- NSTEMI/Multivessel coronary artery disease5- Hypertension6- History of tobacco use7- Obesity8- Acute renal failure9- S/P CABG X4 03/04/23 - BIPAP support as needed,- IV Solu-Medrol 20 mg daily- Continue Pulmicort Perforomist and Atrovent nebulizers- Mucomyst/Hypersal as needed- CTA chest reviewed, no PE, emphysema, small effusions, RLL 1.[address] chest in 6-8 weeks. Patient informed - Monitor renal function, nephrology following. s/p Lasix 40 mg X1- CXR noted with pulm edema-stable- PT/OT at 1031 RPT #:[id number] OF REPORTPRProgress [id number]:30:00G.[id number] able for patient fgoyBMCCJPFNWQTXUM0732-43-27X28:31:20 [facility] 2023-03-09 10:14:00 [id number] JvooSPtQ3pucvKFDAHg+AbpAKKdXc 2tSqHnke8imLlr2SxzX5XIcKkAb2783-26-88V54:14:00 [facility] ([facility])Nephrology Progress NoteREPORT#:[id number] REPORT STATUS: SignedDATE:03/09/23 TIME: 1014 PATIENT: TEVIN NYE UNIT #: [id number]#: [id number] [address] [birth year] AGE: 72 SEX: M ATTEND: Luci Villeda [facility] AUTHOR: Glendy Paz MD * ALL edits or amendments must be made on the electronic/computer document * SubjectiveComments:Sitting up in the chair, on room air. Doing very well Objective GeneralVS/I O:Vital Signs: Date Time Temp Pulse Resp B/P B/P Pulse O2 O2 Flow FiO2 Mean Ox Delivery Rate 03/09 1000 135/54 80 / 1000 97.3 61 25 135/65 93 92 / 0930 150/51 80 / 0930 97.3 60 22 136/62 89 92 07/ 0900 130/61 87 07/ 0900 97.5 62 18 141/54 81 90 / 0830 159/70 100 07/ 0830 97.7 60 25 162/56 88 93 / 0807 168/59 95 / 0807 97.7 67 25 154/72 104 92 07/02 0730 162/70 101 07/02 0730 94 Room air 21 07/02 0730 97.9 67 29 158/57 89 93 07/02 0700 169/73 105 07/02 0700 62 23 166/58 92 92 07/02 0601 165/73 105 07/02 0600 66 25 170/62 97 96 07/02 0501 139/65 93 07/02 0500 60 24 153/58 87 98 07/02 0400 155/56 85 07/02 0400 61 22 144/63 91 99 07/02 0314 98 Nasal 2 cannula 07/02 0301 63 26 130/65 91 98 07/02 0200 152/55 83 07/02 0200 61 24 140/63 91 97 07/02 0100 146/50 80 07/02 0100 61 27 131/66 93 98 07/02 0000 138/50 77 07/02 0000 64 30 127/60 86 97 07/01 2301 129/45 70 07/01 2300 61 33 121/45 70 96 07/01 2200 139/54 83 07/01 2200 71 28 139/73 101 96 07/01 2100 184/64 101 07/01 2100 78 28 166/79 113 96 07/01 2047 94 Nasal 2 28 cannula 07/1999 161/55 88 07/01 1999 98.8 64 20 152/74 107 98 07/01 1900 98.2 07/01 1900 High flow 4 nasal cannula 07/01 1900 158/53 84 07/01 1900 98.8 66 22 144/67 96 97 07/01 1845 165/60 93 07/01 1845 98.6 70 25 166/73 105 96 07/01 1830 162/60 92 07/01 1830 98.6 71 27 145/65 99 94 07/01 1815 179/59 95 07/01 1815 98.4 71 26 162/72 103 96 07/01 1800 178/54 90 07/01 1800 98.4 70 21 179/74 107 97 07/01 1745 146/45 73 07/01 1745 98.4 66 26 133/63 91 98 07/01 1730 162/53 86 07/01 1730 98.2 67 25 159/72 103 97 07/01 1716 170/59 93 07/01 1716 98.2 69 33 158/70 101 97 07/01 1700 176/62 97 07/01 1700 98.2 70 24 164/92 116 96 07/01 1646 162/63 95 07/01 1646 98.2 66 25 139/91 107 96 07/01 1630 160/56 86 07/01 1630 98.2 62 20 142/67 97 98 07/01 1615 168/57 88 07/01 1615 98.4 62 19 146/74 104 97 07/01 1600 163/55 84 07/01 1600 98.4 63 21 145/69 100 97 07/01 1545 171/57 88 07/01 1545 98.6 64 18 146/70 101 97 07/01 1530 168/57 86 07/01 1530 98.6 63 20 136/66 95 97 07/01 1515 172/58 87 07/01 1515 98.8 64 25 143/66 97 96 07/01 1500 171/58 88 07/01 1500 98.8 66 23 144/69 99 95 07/01 1446 145/122 130 07/01 1446 98 High flow 4 nasal cannula 07/01 1446 98.8 68 29 147/65 94 98 07/01 1430 138/59 86 07/01 1430 98.8 66 32 128/58 87 98 07/01 1415 158/58 87 07/01 1415 99.0 65 21 140/67 97 99 07/01 1400 151/53 80 07/01 1400 99.0 65 24 140/65 94 100 07/01 1345 149/55 81 07/01 1345 99.0 65 26 133/62 89 98 07/01 1332 158/66 96 07/01 1332 99.0 69 24 158/68 98 100 07/01 1215 133/55 78 07/01 1215 99.1 62 28 116/60 81 99 07/01 1200 137/53 75 07/01 1200 99.1 61 25 109/58 79 99 07/01 1145 155/60 89 07/01 1145 99.1 61 25 133/65 89 100 07/01 1130 150/58 84 07/01 1130 99.0 58 27 132/65 92 99 07/01 1115 140/54 81 07/01 1115 99.0 60 23 125/58 86 97 07/01 1101 143/62 87 07/01 1101 99.0 59 8 159/73 109 100 03/08 1059 96 High flow 4 nasal cannula 03/08 1046 150/57 84 03/08 1046 99.0 60 21 147/70 100 99 03/08 1030 135/55 78 03/08 1030 99.0 59 26 119/59 84 98 03/08 1015 137/54 76 03/08 1015 99.0 54 20 122/58 84 99 24 hour I O ending at 0700: 03/09 0700 03/08 1900 Intake Total 400 1471.00 Output Total 800 1645 Balance -400 -174.00 Intake, IV 31.00 Intake, Oral 400 720 Intake, Oral 720 Supplement Number 1 Bowel Movements Output, Urine 800 1645 Patient 89.8 kg Weight Weight Standing scale Measurement Method PATIENT WEIGHT: Weight (lb): 197Weight (oz): 15.6Weight (kg): 89.800 MedicationsActive Meds + DC'd Last 24 HrsAmlodipine Besylate (NORVASC) 5 MG DAILY PO Fluoxetine HCl (PROzac) 10 MG DAILY PO Potassium Chloride (POTASSIUM CHLORIDE 20MEQ TAB.ER) 40 MEQ ONCE ONE PO (DC) Insulin Human Lispro (HUMALOG) 0 AC HS SUBQ Furosemide (LASIX 40 mg/4 mL INJECTION) 40 MG ONCE ONE IV (DC) Methylprednisolone Sodium Succinate (Solu-Medrol 40 MG Vial) 20 MG DAILY IV Metoprolol Tartrate (LOPRESSOR) 12.5 MG Q12HR PO Ipratropium [place] (ATROVENT) 500 MCG RTQ2H PRN PRN INH Amiodarone HCl (CORDARONE) 400 MG Q12HR PO (CKD) Cyanocobalamin (Vitamin B-12 500 mcg tab) 500 MCG DAILY PO Ferrous Sulfate (FERROUS SULFATE) 325 MG DAILY PO Calcium Carbonate (TUMS CHEW TAB) 1,000 MG Q6H PRN PRN PO Bisacodyl (DULCOLAX) 10 MG ONCE PRN RECTAL Atorvastatin Calcium (LIPITOR) 40 MG 2100 PO Budesonide (PULMICORT RESPULES) 0.5 MG RTBID INH Formoterol Fumarate (PERFOROMIST) 20 MCG RTBID NEB Sterile Water (WATER FOR INJECTION) 1 ML ASDIR PRN IV Tamsulosin HCl (Flomax 0.4 mg) 0.8 MG PC BK PO Clopidogrel Bisulfate (Plavix) 75 MG DAILY PO Mupirocin (BACTROBAN 2% 22 GM OINTMENT) 1 APPLIC BID NASAL Polyethylene Glycol (MIRALAX) 17 GM DAILY PO Amiodarone HCl (AMIODARONE HCL) 450 MG ASDIR IV (CKD) Dextrose/Water (D5%W NON-DEHP) 250 MLPantoprazole (PROTONIX) 40 MG DAILY@0600 PO Aspirin (ASPIRIN) 81 MG DAILY PO Docusate Sodium (COLACE) 100 MG BID PO Sennosides (Senna Lax 8.6 MG TABLET) 17.2 MG BEDTIME PO Acetaminophen (TYLENOL) 650 MG Q4H PRN PRN PO Acetaminophen (TYLENOL) 650 MG Q4H PRN PRN RECTAL Calcium Chloride (CALCIUM CHLORIDE) 1 GM ASDIR PRN IV Dextrose/Water (DEXTROSE 10% IN WATER) 125 ML ASDIR PRN IV (CKD) Dextrose/Water (DEXTROSE 10% IN WATER) 250 ML ASDIR PRN IV (CKD) Epinephrine (ADRENALIN CHLORIDE) 4 MG ASDIR IV Dextrose/Water (DEXTROSE 5% WATER) 246 MLGlucagon (GLUCAGON) 1 MG ASDIR PRN IM Insulin Human Regular (HumuLIN R) 100 UNIT ASDIR IV (DC) Sodium Chloride (SODIUM CHLORIDE 0.9%) 99 MLMagnesium Sulfate (MAGNESIUM SULFATE 4GM/SWFI 100ML) 100 ML ASDIR PRN IV Magnesium Sulfate (MAGNESIUM SULFATE 2GM/SWFI 50ML) 50 ML ASDIR PRN IV Magnesium Sulfate/Dextrose (MAGNESIUM SULFATE 1GM/D5W 100ML) 100 ML ASDIR PRN IV Nitroglycerin/Dextrose (NITROGLYCERIN 50,000MCG/D5W 250ML) 250 ML ASDIR IV Norepinephrine Bitartrate (NOREPINEPHRINE 8 MG/NS 250 ML) 250 ML TITRATE IV (DC) Ondansetron HCl (ZOFRAN) 4 MG Q6H PRN PRN IV Potassium Chloride (KCL 20MEQ/SWFI 100ML) 100 ML ASDIR PRN IV Sodium Bicarbonate (SODIUM BICARBONATE) 50 MEQ ASDIR PRN IV Physical ExamGeneral appearance: alert, awake, orientedHead/eyes: atraumatic, normocephalic, PERRLANeck: no JVD, no lymphadenopathyCardiovascular: normal heart sounds, regular rate and rhythm, no rubRespiratory: decreased breath sounds, aerating well, no distressAbdomen: non-tender, normal bowel sounds, soft, no reboundGenitourinary: urinary catheter, urineExtremities: pitting edema, no gangreneNeuro/SALES ASSISTANT: alert, normal speech ResultsFindings/Data:Laboratory Tests 03/09 0202 Blood Gas Puncture Site Art Line O2 Saturation (90 - 100 %) 96.6 ABG pH (7.35 - 7.45) 7.455 H ABG pCO2 (35.0 - 45 mmHg) 39.2 ABG pO2 (80 - 100.0 mmHg) 81.3 ABG HCO3 (22.0 - 26.0 MMOL/L) 27.6 H ABG Total CO2 28.8 ABG Base Excess (-4.0 - 4.0 MMOL/L) 3.7 ABG Hematocrit (37.5 - 50.7 %) 33 L ABG Hemoglobin (12.5 - 16.9 G/DL) 11.1 L Shayla Test N/A Sodium (134 - 147 mmol/L) 143 Potassium (3.4 - 5.0 mmol/L) 3.9 Chloride (100 - 108 mmol/L) 106 Ionized Calcium (1.12 - 1.32 MMOL/L) 1.17 Lactic Acid (0.9 - 1.7 mmol/l) 0.6 L Temperature (F) 98.3 O2 Delivery Device [facility] Laboratory Tests 03/09 03/09 03/09 03/09 03/09 0403 0202 0156 0114 0034 Chemistry Sodium (134 - 147 mEq/L) 144 Potassium (3.4 - 5.0 mEq/L) 3.9 Chloride (100 - 108 mEq/L) 108 Carbon Dioxide (21 - 33 mEq/l) 30 Anion Gap (0 - 20) 10 BUN (7 - 18 mg/dL) 67 H Creatinine (0.6 - 1.3 mg/dL) 1.9 H POC Creatinine (0.8 - 1.3 mg/dL) 1.9 H Glomerular Filtr Rate (70 - 80) 37.3 L Glucose (70 - 110 mg/dL) 224 H POC Glucose (70 - 110 MG/DL) 123 H 244 H 252 H POC Glucose (mg/dL) (70 - 110 MG/DL) 212 H Calcium (8.0 - 10.5 mg/dL) 8.6 Magnesium (1.80 - 2.40 mg/dL) 2.70 H 03/08 03/08 03/08 03/08 03/08 2331 2131 1934 1818 1546 Chemistry Sodium (134 - 147 mEq/L) 143 Potassium (3.4 - 5.0 mEq/L) 4.2 Chloride (100 - 108 mEq/L) 109 H Carbon Dioxide (21 - 33 mEq/l) 29 Anion Gap (0 - 20) 9 BUN (7 - 18 mg/dL) 67 H Creatinine (0.6 - 1.3 mg/dL) 2.0 H Glomerular Filtr Rate (70 - 80) 35.0 L Glucose (70 - 110 mg/dL) 243 H POC Glucose (70 - 110 MG/DL) 215 H 193 H 234 H 218 H Calcium (8.0 - 10.5 mg/dL) 8.2 Laboratory Tests 03/09 0156 Hematology WBC (4.5 - 11.0 x10 3/uL) 5.6 RBC (4.00 - 5.60 x10 6/uL) 3.50 L Hgb (12.5 - 16.9 g/dL) 10.5 L Hct (37.5 - 50.7 %) 31.8 L MCV (81.0 - 99.0 fL) 90.9 MCH (27.0 - 33.0 pg) 30.0 MCHC (33.0 - 37.0 g/dL) 33.0 RDW (11.5 - 14.5 %) 15.7 H Plt Count (150 - 400 x10 3/uL) 119 L MPV (7.0 - 9.0 fL) 11.3 H Neut % (Auto) (56.0 - 77.0 %) 85.6 H Lymph % (Auto) (14.0 - 32.0 %) 4.6 L [place] % (Auto) (4.8 - 9.0 %) 9.1 H Eos % (Auto) (0.3 - 3.7 %) 0.0 L Baso % (Auto) (0.0 - 2.0 %) 0.0 Neut # (Auto) (2.0 - 7.6 x10 3/uL) 4.81 Lymph # (Auto) (1.0 - 3.8 x10 3/uL) 0.26 L [place] # (Auto) (0.1 - 0.8 x10 3/uL) 0.51 Eos # (Auto) (0.0 - 0.2 x10 3/uL) 0.00 Baso # (Auto) (0.0 - 0.2 x10 3/uL) 0.00 Abs Immat Gran (auto) (0.00 - 0.03 x10 3/uL) 0.04 H Add Manual Diff NO Immature Gran % (0.0 - 2.0 %) 0.7 Nucleated RBC % (0 - 0 %) 0.0 Nucleated RBCs # (Man) (0.0 - 0.1 x10 3/uL) 0.00 Radiology data:Recent Impressions:RADIOLOGY - XR CHEST 1 V 03/09 802 Report Impression - Status: SIGNED Entered: 03/09/2023817 IMPRESSION: No significant change in the lungs.Impression By: BuckABDavid - Ezekiel Esteves M.D. Diagnosis, Assessment PlanFree Text A P:1. JERAMY likely ATN secondary to IV contrast. Urine output improving. Sp NS at 75 cc/h for 1 L. Monitor respiratory status closely. Avoid nephrotoxic medications.creatinine improving at 3.1> 2.8>2.5 >1.9 today. Will give Lasix 40mg IV x1 today 2. Acute hypercapnic respiratory failure with COPD on room air currently. Pulmonary following 3. Coronary disease status post CABG postop care per CT surgery 4. Left carotid artery stenosis 5. Anemia PRBC as needed Discussed with brother at bedside and CT surgery 1. Left ventricle: The cavity size is normal. Wall thickness is normal. Systolic function is mildly reduced. The estimated ejection fraction is 40-44%. Doppler parameters are consistent with abnormal left ventricular relaxation (grade 1 diastolic dysfunction).2. Regional wall motion abnormality: Severe hypokinesis of the apical anterior, apical septal, apical lateral, and apical myocardium; hypokinesis of the basal-mid anteroseptal myocardium.3. Right ventricle: Systolic pressure is moderately increased.4. Mitral valve: There is mild regurgitation.5. Tricuspid valve: Estimated right ventricular systolic pressure is 46 mmHg. There is moderate regurgitation.6. Pericardium, extracardiac: A trivial pericardial effusion is identified.7. Inferior vena cava: The vessel is dilated. The respirophasic diameter changes are in the normal range (= 50%). Inferior vena cava diameter is 2.1 cm. on 03/04/23 at 1717 at 1230 RPT #:[id number] OF REPORTPRProgress [id number]:14:00G.[id number] able for patient lifoLURKPUSVVYJIJI3711-17-36M22:30:27 [facility] 2023-03-09 09:40:00 [id number]+qRftg6FXvsVOfSYT [id number]73-91-00U01:40:00 [facility] ProgREPORT#:[id number] REPORT STATUS: SignedDATE:03/09/23 TIME: 0940 PATIENT: TEVIN NYE UNIT #: [id number]#: [id number] [address] [birth year] AGE: 72 SEX: M ATTEND: Luci Villeda [facility] AUTHOR: Luci Villeda MD * ALL edits or amendments must be made on the electronic/computer document * GeneralPost-op: day 5Status post:03/04/23 CABG x 4 (MCCORMICK-LAD,SVG-Renea, SVG-OM, SVG-PDA) ALAA EVH (LGSV) Posterior pericardiotomy SubjectiveChief complaint:chest pain Follow up CABG Review of SystemsConstitutional:Denies: chills, fatigue, generalized weakness. Skin:Denies: abrasion, bruising, laceration. Allergy/Immun:Denies: allergic reaction, anaphylaxis, rhinorrhea. Eyes:Denies: redness, visual loss/blurred, eye pain. ENT:Denies: ear ringing, throat swelling, toothache. Respiratory:Denies: [place] (dyspnea on exertion), pneumonia, SOB. Cardiovascular:Denies: chest pain, edema, orthopnea. GI:Denies: abdominal pain, anorexia, melena, nausea. :Denies: dysuria, flank pain. Musculoskeletal:Denies: arthritis, extremity pain, lumbar pain. Heme:Denies: adenopathy, bleeding, petechiae. Endocrine:Denies: cold intolerance, polydipsia, weight gain. Neuro:Denies: confusion, dizziness, seizure, syncope. All systems rev neg: except as marked Objective GeneralVS/I OLast Documented: Result Date Time B/P 130/61 03/09 900 B/P Mean 87 03/09 900 Pulse Ox 90 03/09 900 Temp 36.4 03/09 900 Pulse 62 03/09 0900 Resp 18 03/09 0900 FiO2 21 03/09 0730 O2 Delivery Room air 03/09 07 O2 Flow Rate 2 03/09 0314 24 hour I O ending at 0700: 03/09 0700 03/08 1900 Intake Total 400 1471.00 Output Total 800 1645 Balance -400 -174.00 Intake, IV 31.00 Intake, Oral 400 720 Intake, Oral 720 Supplement Number 1 Bowel Movements Output, Urine 800 1645 Patient 89.8 kg Weight Weight Standing scale Measurement Method PATIENT WEIGHT: Weight (lb): 197Weight (oz): 15.6Weight (kg): 89.800 Physical ExamGeneral appearance: alert, awake, orientedWound/incision: Location:sternal Site condition: edges approximated, incision intactHEENT: anicteric, mucosal membranes moist, pupils reactive to lightNeck: full range of motion, non-tenderCardiovascular: irregular rhythm, normal heart sounds, regular rate rhythmRespiratory: decreased breath sounds, aerating well, symmetric expansionAbdomen: soft, non-tenderGenitourinary: no bladder distentionExtremities: dry, moves allMusculoskeletal: full range of motionNeuro/SALES ASSISTANT: alert, oriented X 3Skin: dry, intactPsychiatry: normal affect, normal mood Current MedicationsMedications:Active Meds + DC'd Last 24 HrsAmlodipine Besylate (NORVASC) 5 MG DAILY PO Fluoxetine HCl (PROzac) 10 MG DAILY PO Potassium Chloride (POTASSIUM CHLORIDE 20MEQ TAB.ER) 40 MEQ ONCE ONE PO (DC) Insulin Human Lispro (HUMALOG) 0 AC HS SUBQ Furosemide (LASIX 40 mg/4 mL INJECTION) 40 MG ONCE ONE IV (DC) Methylprednisolone Sodium Succinate (Solu-Medrol 40 MG Vial) 20 MG DAILY IV Metoprolol Tartrate (LOPRESSOR) 12.5 MG Q12HR PO Ipratropium [place] (ATROVENT) 500 MCG RTQ2H PRN PRN INH Amiodarone HCl (CORDARONE) 400 MG Q12HR PO (CKD) Cyanocobalamin (Vitamin B-12 500 mcg tab) 500 MCG DAILY PO Ferrous Sulfate (FERROUS SULFATE) 325 MG DAILY PO Calcium Carbonate (TUMS CHEW TAB) 1,000 MG Q6H PRN PRN PO Bisacodyl (DULCOLAX) 10 MG ONCE PRN RECTAL Atorvastatin Calcium (LIPITOR) 40 MG 2100 PO Budesonide (PULMICORT RESPULES) 0.5 MG RTBID INH Formoterol Fumarate (PERFOROMIST) 20 MCG RTBID NEB Sterile Water (WATER FOR INJECTION) 1 ML ASDIR PRN IV Tamsulosin HCl (Flomax 0.4 mg) 0.8 MG PC BK PO Clopidogrel Bisulfate (Plavix) 75 MG DAILY PO Mupirocin (BACTROBAN 2% 22 GM OINTMENT) 1 APPLIC BID NASAL Polyethylene Glycol (MIRALAX) 17 GM DAILY PO Amiodarone HCl (AMIODARONE HCL) 450 MG ASDIR IV (CKD) Dextrose/Water (D5%W NON-DEHP) 250 MLPantoprazole (PROTONIX) 40 MG DAILY@0600 PO Aspirin (ASPIRIN) 81 MG DAILY PO Docusate Sodium (COLACE) 100 MG BID PO Sennosides (Senna Lax 8.6 MG TABLET) 17.2 MG BEDTIME PO Acetaminophen (TYLENOL) 650 MG Q4H PRN PRN PO Acetaminophen (TYLENOL) 650 MG Q4H PRN PRN RECTAL Calcium Chloride (CALCIUM CHLORIDE) 1 GM ASDIR PRN IV Dextrose/Water (DEXTROSE 10% IN WATER) 125 ML ASDIR PRN IV (CKD) Dextrose/Water (DEXTROSE 10% IN WATER) 250 ML ASDIR PRN IV (CKD) Epinephrine (ADRENALIN CHLORIDE) 4 MG ASDIR IV Dextrose/Water (DEXTROSE 5% WATER) 246 MLGlucagon (GLUCAGON) 1 MG ASDIR PRN IM Insulin Human Regular (HumuLIN R) 100 UNIT ASDIR IV (DC) Sodium Chloride (SODIUM CHLORIDE 0.9%) 99 MLMagnesium Sulfate (MAGNESIUM SULFATE 4GM/SWFI 100ML) 100 ML ASDIR PRN IV Magnesium Sulfate (MAGNESIUM SULFATE 2GM/SWFI 50ML) 50 ML ASDIR PRN IV Magnesium Sulfate/Dextrose (MAGNESIUM SULFATE 1GM/D5W 100ML) 100 ML ASDIR PRN IV Nitroglycerin/Dextrose (NITROGLYCERIN 50,000MCG/D5W 250ML) 250 ML ASDIR IV Norepinephrine Bitartrate (NOREPINEPHRINE 8 MG/NS 250 ML) 250 ML TITRATE IV (DCr) Ondansetron HCl (ZOFRAN) 4 MG Q6H PRN PRN IV Potassium Chloride (KCL 20MEQ/SWFI 100ML) 100 ML ASDIR PRN IV Sodium Bicarbonate (SODIUM BICARBONATE) 50 MEQ ASDIR PRN IV ResultsFindings/Data:Laboratory Tests 03/09 0202 Blood Gas Puncture Site Art Line O2 Saturation (90 - 100 %) 96.6 ABG pH (7.35 - 7.45) 7.455 H ABG pCO2 (35.0 - 45 mmHg) 39.2 ABG pO2 (80 - 100.0 mmHg) 81.3 ABG HCO3 (22.0 - 26.0 MMOL/L) 27.6 H ABG Total CO2 28.8 ABG Base Excess (-4.0 - 4.0 MMOL/L) 3.7 ABG Hematocrit (37.5 - 50.7 %) 33 L ABG Hemoglobin (12.5 - 16.9 G/DL) 11.1 L Shayla Test N/A Sodium (134 - 147 mmol/L) 143 Potassium (3.4 - 5.0 mmol/L) 3.9 Chloride (100 - 108 mmol/L) 106 Ionized Calcium (1.12 - 1.32 MMOL/L) 1.17 Lactic Acid (0.9 - 1.7 mmol/l) 0.6 L Temperature (F) 98.3 O2 Delivery Device [facility] Laboratory Tests 03/09 03/09 03/09 03/09 03/09 0403 0202 0156 0114 0034Chemistry Sodium (134 - 147 mEq/L) 144 Potassium (3.4 - 5.0 mEq/L) 3.9 Chloride (100 - 108 mEq/L) 108 Carbon Dioxide (21 - 33 mEq/l) 30 Anion Gap (0 - 20) 10 BUN (7 - 18 mg/dL) 67 H Creatinine (0.6 - 1.3 mg/dL) 1.9 H POC Creatinine (0.8 - 1.3 mg/dL) 1.9 H Glomerular Filtr Rate (70 - 80) 37.3 L Glucose (70 - 110 mg/dL) 224 H POC Glucose (70 - 110 MG/DL) 123 H 244 H 252 H POC Glucose (mg/dL) (70 - 110 MG/DL) 212 H Calcium (8.0 - 10.5 mg/dL) 8.6 Magnesium (1.80 - 2.40 mg/dL) 2.70 H 03/08 03/08 03/08 03/08 03/08 2331 2131 1934 1818 1546 Chemistry Sodium (134 - 147 mEq/L) 143 Potassium (3.4 - 5.0 mEq/L) 4.2 Chloride (100 - 108 mEq/L) 109 H Carbon Dioxide (21 - 33 mEq/l) 29 Anion Gap (0 - 20) 9 BUN (7 - 18 mg/dL) 67 H Creatinine (0.6 - 1.3 mg/dL) 2.0 H Glomerular Filtr Rate (70 - 80) 35.0 L Glucose (70 - 110 mg/dL) 243 H POC Glucose (70 - 110 MG/DL) 215 H 193 H 234 H 218 H Calcium (8.0 - 10.5 mg/dL) 8.2 07 0959 Chemistry POC Glucose (70 - 110 MG/DL) 229 H Laboratory Tests 03/09 0156 Hematology WBC (4.5 - 11.0 x10 3/uL) 5.6 RBC (4.00 - 5.60 x10 6/uL) 3.50 L Hgb (12.5 - 16.9 g/dL) 10.5 L Hct (37.5 - 50.7 %) 31.8 L MCV (81.0 - 99.0 fL) 90.9 MCH (27.0 - 33.0 pg) 30.0 MCHC (33.0 - 37.0 g/dL) 33.0 RDW (11.5 - 14.5 %) 15.7 H Plt Count (150 - 400 x10 3/uL) 119 L MPV (7.0 - 9.0 fL) 11.3 H Neut % (Auto) (56.0 - 77.0 %) 85.6 H Lymph % (Auto) (14.0 - 32.0 %) 4.6 L [place] % (Auto) (4.8 - 9.0 %) 9.1 H Eos % (Auto) (0.3 - 3.7 %) 0.0 L Baso % (Auto) (0.0 - 2.0 %) 0.0 Neut # (Auto) (2.0 - 7.6 x10 3/uL) 4.81 Lymph # (Auto) (1.0 - 3.8 x10 3/uL) 0.26 L [place] # (Auto) (0.1 - 0.8 x10 3/uL) 0.51 Eos # (Auto) (0.0 - 0.2 x10 3/uL) 0.00 Baso # (Auto) (0.0 - 0.2 x10 3/uL) 0.00 Abs Immat Gran (auto) (0.00 - 0.03 x10 3/uL) 0.04 H Add Manual Diff NO Immature Gran % (0.0 - 2.0 %) 0.7 Nucleated RBC % (0 - 0 %) 0.0 Nucleated RBCs # (Man) (0.0 - 0.1 x10 3/uL) 0.00 Radiology data:Recent Impressions:RADIOLOGY - XR CHEST 1 V 03/09 08 Report Impression - Status: SIGNED Entered: 03/09/202318 IMPRESSION: No significant change in the lungs.Impression By: Herlinda - Ezekiel Esteves M.D. Results: labs reviewed, vital signs stable, rythm personally rev'd, x-ray personally reviewed, current med profile rev'd Diagnosis, Assessment PlanHospital course to date:This is a pleasant 72 year old male with past medical history of hypertension, dyslipidemia, DM-2 (on insulin), former smoker (quit 2018), BPH, prostate CA s/pradiation, COPD (uses inhaler at home, no home oxygen), and PE (November 2022 on eliquis) who presented to [facility] with chest pain, dyspnea on exertion, and NSTEMI. Coronary angiogram was done and revealed severe multivessel coronary artery disease. Patient was then transferred to [facility] for CV surgery evaluation and need for CABG. PLAN Admit patient to CVICUInitiate preop workupIncentive spirometer teachingCarotid ultrasoundBLE vein mappingCT chest non-contrastUA to r/o UTIEchocardiogramHeparin and Nitro dripConsult pulmonary, cardiology, and intensivistCoronary angiogram reviewed and patient will benefit from surgical revascularizaton. The surgery, risks involved, STS score, benefits, complications and alternatives were explained to the patient and his brother. He acknowledged understanding and is willing to proceed. We will tentatively schedule him for surgery tomorrow morning.Further recommendations to follow. 03/04/23CABG x 4 (MCCORMICK-LAD,SVG-Renea, SVG-OM, SVG-PDA)ALAAEVH (LGSV)Posterior pericardiotomy 03/05/23POD 1Patient alert, awake, and orientedLabs and CXR reviewedOn bipap 12/5 40%, wean off as toleratedTrend abgsWean off levo as toleratedKeep both chest tubesMonitor strict I Os and renal functionPT/OT, ambulate, OOB in chairDVT ppx with SCDsMonitor patient closely in CVICU 03/06/23POD 2Patient in stable conditionCXR and labs reviewedHGB 6.6, transfuse 2 units PRBCDiscontinue dopamine dripEchocardiogramDiscontinue both chest tubesCR increasing, renal following, UOP 25 cc/hrOOB in chairMonitor closely in CVICU 03/07/23POD 3Patient alert, awake, and oriented, no complaintsLabs and CXR reviewedOn 2l nasal cannula, encourage I-S useHgb stable 10.1Discontinue left pleural chest tubeOn amio drip 0.5Monitor renal function, Cr 2.9Consult rehabAmbulate patient with PT/OTKeep patient in CVICU 03/08/23POD 4Patient recovering wellCXR and labs reviewedWean oxygen off as toleratedNSR, off amio drip, continue poRenal following, CR improving now 2.5Encourage mobilization and I-S useKeep in CVICU 03/09/23POD 5Patient resting comfortable, out of bed in reclinerOn room airEncourage I-S useDiurese with lasix, CR 1.9Monitor strict I OsRehab consultedKeep central line and foleyPT/OTMonitor patient in CVICU Consultants: anesthesiology, cardiology, cardiovascular surgery, critical/osteopathy doctor, hospitalist at 1844 RPT #:[id number] OF REPORTPRProgress [id number]:40:00G.[id number] able for patient [id number]:44:50 HCACL 2023-03-09 08:59:00 [id number]:59:00 [facility] ([facility])Critical Care Progress NoteREPORT#:[id number] REPORT STATUS: SignedDATE:03/09/23 TIME: 0859 PATIENT: TEVIN NYE UNIT #: [id number]#: [id number] [address] AGE: 72 SEX: M ATTEND: Luci Villeda [facility] AUTHOR: Noé Madrid MD * ALL edits or amendments must be made on the electronic/computer document * SubjectiveChief complaint: Chest pain/Unstable anginaWheezingDyspneaMultivessel coronary artery diseaseNon-ST elevation MIStatus post CABG x5 and ILAAElective ventilator dependenceAcute pulmonary insufficiency following major cardiothoracic surgeryAcute blood loss anemiaMetabolic acidosisLactic acidosisHypokalemiaHyperglycemiaChronic steroid dependenceSevere left carotid stenosisHistory of severe COPDConstipation HPI: Patient seen and examined in CVICU room #2201 this morning and discussed during CT surgery rounds. No acute events were reported overnight. Patient is postop day 5 after CABG x5 and isolation of left atrial appendage. Postop course was complicated with acute kidney injury with a creatinine of 1.9 mg/dL. Patient also had severe metabolic acidosis that responded to multiple intravenous bicarbinfusions. Urine output is adequate. Patient is off oxygen on room air now. He is able to ambulate without any difficulty. Tolerating oral diet. DC Valencia catheter. Patient will receive 1 dose of Lasix 40 mg IV today. Start on amlodipine 5 mg PO daily as tolerated. Will receive milk of magnesia for bowel movement. Patient is still 6 kg heavier than the admission weight. Vital signs stable with mildly elevated blood pressure. Patient is awake, interactive, following commands and moving all 4 extremities. Tevin Nye is a 72-year-old gentleman with past medical history significant for hypertension, diabetes, dyslipidemia, former smoker quit in 2008, BPH, prostate cancer status postradiation severe COPD, not home oxygen dependent, severe left carotid stenosis, who was admitted to the medical floor with diagnosis of NSTEMI. He was found to have severe multivessel coronary disease on cardiac catheterization. Patient also had shortness of breath and wheezing. He was seen by pulmonology and started on steroid therapy along with nebulizer treatments. Patient underwent elective coronary artery bypass grafting surgery and received 4 jumps along with isolation of left atrial appendage. He came outof the OR with norepinephrine at 4 mcg and epinephrine at 2 mcg. EF was normal. Patient received parasternal block. Intraoperatively he received 1.5 L of crystalloids, 250 mL of Cell Saver, hemoglobin was 8.3 g/dL but on arrival his latest hemoglobin is 6.9 g/dL. Patient has been ordered 2 units of packed red cells. Intra-Op urine output was 425 mL and EBL was 100 mL. Patient received fentanyl and last neuromuscular blockade dose was at 3:15 PM. Patient was givenhydrocortisone 100 mg IV at 2:45 PM for chronic steroid dependence. He is currently on assist-control at 18 tidal volume 480 PEEP of 5 and 50% FiO2 and ismoving tidal volumes at 470+. Vital signs are stable with heart rate 82 sinus rhythm, blood pressure 95/41 mmHg, pulse ox 100% while on 50% FiO2 and respiratory rate is 14. Chest tube output is minimal at 3 mm each. Patient wasordered albumin 25% to 50 mL. Pupils are bilaterally symmetrical and reactive to light measuring 3 mm on each side. Lab work upon arrival in the CVICU room #2201 revealed a potassium of 3.3, glucose 230, creatinine 1.46 mg/dL, hemoglobinof 6.9 g/dL and hematocrit of 20%. Tevin Gonzalez is a 72 y.o. male with PMH of hypertension, dyslipidemia, diabetes, former smoker (quit 2008), BPH, prostate CA s/p radiation, COPD (uses inhaler at home, no home oxygen), and PE (November 2022 on eliquis) who presented to [facility] with chest pain, dyspnea on exertion, and NSTEMI. Coronary angiogram was done and revealed severe multivessel coronary artery disease. Patient was then transferred to [facility] for CV surgery evaluation and need for CABG. on the floor he had chest pain at rest and was transferred to the ICU for nitroglycerin drip and preoperative workup. Also noted to have chest pain - which he states is better and related to when he coughs. Currently without any pain. Patient underwent elective CABG x5 and isolation of left atrial appendage on 03/04/2023. Patient reports:No: abdominal pain, bowel movement, diarrhea, fever, headache, shortness of breath, vomiting. Nursing reports:Yes: constipation. No: abdominal pain, agitated, bowel movement, confusion, delirium, diarrhea, fever, headache, shortness of breath, vomiting. Review of SystemsConstitutional:Denies: fatigue, fever. Skin:Denies: diaphoresis, ecchymosis, rash. Allergy/Immun:Denies: anaphylaxis, hives. Eyes:Denies: redness, discharge. ENT:Denies: nose bleeding, throat swelling, tongue swelling. Respiratory:Denies: [place] (dyspnea on exertion), hemoptysis, SOB, wheezing. Cardiovascular:Denies: [place] (dyspnea on exertion), edema. GI:Reports: constipation. Denies: abdominal pain, anorexia, dysphagia, hematemesis, hematochezia, hiatal hernia, nausea, vomiting. :Denies: hematuria, nocturia. Heme:Denies: bleeding, bruising. Endocrine:Denies: polydipsia, polyphagia. Neuro:Denies: confusion, dizziness, focal weakness, seizure. Psych:Denies: delusional, depression, insomnia. Objective GeneralVS/I OLast Documented: Result Date Time B/P 130/61 03/09 0900 B/P Mean 87 03/09 0900 Pulse Ox 90 03/09 0900 Temp 36.4 07/02 0900 Pulse 62 03/09 0900 Resp 18 03/09 0900 O2 Delivery Nasal cannula 03/09 0314 O2 Flow Rate 2 03/09 0314 FiO2 28 03/08 2047 24 hour I O ending at 0700: 03/09 0700 07 1900 Intake Total 400 1471.00 Output Total 800 1645 Balance -400 -174.00 Intake, IV 31.00 Intake, Oral 400 720 Intake, Oral 720 Supplement Number 1 Bowel Movements Output, Urine 800 1645 Patient 89.8 kg Weight Weight Standing scale Measurement Method PATIENT WEIGHT: Weight (lb): 197Weight (oz): 15.6Weight (kg): 89.800 Medications:Active Meds + DC'd Last 24 HrsAmlodipine Besylate (NORVASC) 5 MG DAILY PO Fluoxetine HCl (PROzac) 10 MG DAILY PO Potassium Chloride (POTASSIUM CHLORIDE 20MEQ TAB.ER) 40 MEQ ONCE ONE PO (DC) Insulin Human Lispro (HUMALOG) 0 AC HS SUBQ Furosemide (LASIX 40 mg/4 mL INJECTION) 40 MG ONCE ONE IV (DC) Methylprednisolone Sodium Succinate (Solu-Medrol 40 MG Vial) 20 MG DAILY IV Metoprolol Tartrate (LOPRESSOR) 12.5 MG Q12HR PO Ipratropium [place] (ATROVENT) 500 MCG RTQ2H PRN PRN INH Amiodarone HCl (CORDARONE) 400 MG Q12HR PO (CKD) Cyanocobalamin (Vitamin B-12 500 mcg tab) 500 MCG DAILY PO Ferrous Sulfate (FERROUS SULFATE) 325 MG DAILY PO Calcium Carbonate (TUMS CHEW TAB) 1,000 MG Q6H PRN PRN PO Bisacodyl (DULCOLAX) 10 MG ONCE PRN RECTAL Atorvastatin Calcium (LIPITOR) 40 MG 2100 PO Budesonide (PULMICORT RESPULES) 0.5 MG RTBID INH Formoterol Fumarate (PERFOROMIST) 20 MCG RTBID NEB Sterile Water (WATER FOR INJECTION) 1 ML ASDIR PRN IV Tamsulosin HCl (Flomax 0.4 mg) 0.8 MG PC BK PO Clopidogrel Bisulfate (Plavix) 75 MG DAILY PO Mupirocin (BACTROBAN 2% 22 GM OINTMENT) 1 APPLIC BID NASAL Polyethylene Glycol (MIRALAX) 17 GM DAILY PO Amiodarone HCl (AMIODARONE HCL) 450 MG ASDIR IV (CKD) Dextrose/Water (D5%W NON-DEHP) 250 MLPantoprazole (PROTONIX) 40 MG DAILY@0600 PO Aspirin (ASPIRIN) 81 MG DAILY PO Docusate Sodium (COLACE) 100 MG BID PO Sennosides (Senna Lax 8.6 MG TABLET) 17.2 MG BEDTIME PO Acetaminophen (TYLENOL) 650 MG Q4H PRN PRN PO Acetaminophen (TYLENOL) 650 MG Q4H PRN PRN RECTAL Calcium Chloride (CALCIUM CHLORIDE) 1 GM ASDIR PRN IV Dextrose/Water (DEXTROSE 10% IN WATER) 125 ML ASDIR PRN IV (CKD) Dextrose/Water (DEXTROSE 10% IN WATER) 250 ML ASDIR PRN IV (CKD) Epinephrine (ADRENALIN CHLORIDE) 4 MG ASDIR IV Dextrose/Water (DEXTROSE 5% WATER) 246 MLGlucagon (GLUCAGON) 1 MG ASDIR PRN IM Insulin Human Regular (HumuLIN R) 100 UNIT ASDIR IV (DC) Sodium Chloride (SODIUM CHLORIDE 0.9%) 99 MLMagnesium Sulfate (MAGNESIUM SULFATE 4GM/SWFI 100ML) 100 ML ASDIR PRN IV Magnesium Sulfate (MAGNESIUM SULFATE 2GM/SWFI 50ML) 50 ML ASDIR PRN IV Magnesium Sulfate/Dextrose (MAGNESIUM SULFATE 1GM/D5W 100ML) 100 ML ASDIR PRN IV Nitroglycerin/Dextrose (NITROGLYCERIN 50,000MCG/D5W 250ML) 250 ML ASDIR IV Norepinephrine Bitartrate (NOREPINEPHRINE 8 MG/NS 250 ML) 250 ML TITRATE IV Ondansetron HCl (ZOFRAN) 4 MG Q6H PRN PRN IV Potassium Chloride (KCL 20MEQ/SWFI 100ML) 100 ML ASDIR PRN IV Sodium Bicarbonate (SODIUM BICARBONATE) 50 MEQ ASDIR PRN IV Post-op: day 5Status post: CABG times 5 and ILAA Physical ExamGeneral appearance: alert, awake, oriented, no acute distress, pleasant, conversational, mental status normal, no respiratory distressHead/eyes: EOMI, PERRLENT: moist mucosal membranesCardiovascular: normal capillary refill, normal heart sounds, regular rate and rhythm, normal S1/R1Lrttfmudgma: aerating well, clear to auscultation, symmetric expansionAbdomen: soft, non-tenderGenitourinary: urinary catheter, no bladder distentionExtremities: no clubbing, no cyanosis, no edemaMusculoskeletal normal inspectionNeuro/SALES ASSISTANT: alert, oriented X 3, CNII-XII intact, normal speech, reflexes equal bilat, no motor deficits, no sensory deficitsSkin: dry, normal color, normal temperature, no rashPsychiatry: normal affect, normal judgment/insight, normal mood, not homicidal, not suicidal, no hallucinations ResultsFindings/data:Laboratory Tests 03/09 0202 Blood Gas Puncture Site Art Line O2 Saturation (90 - 100 %) 96.6 ABG pH (7.35 - 7.45) 7.455 H ABG pCO2 (35.0 - 45 mmHg) 39.2 ABG pO2 (80 - 100.0 mmHg) 81.3 ABG HCO3 (22.0 - 26.0 MMOL/L) 27.6 H ABG Total CO2 28.8 ABG Base Excess (-4.0 - 4.0 MMOL/L) 3.7 ABG Hematocrit (37.5 - 50.7 %) 33 L ABG Hemoglobin (12.5 - 16.9 G/DL) 11.1 L Shayla Test N/A Sodium (134 - 147 mmol/L) 143 Potassium (3.4 - 5.0 mmol/L) 3.9 Chloride (100 - 108 mmol/L) 106 Ionized Calcium (1.12 - 1.32 MMOL/L) 1.17 Lactic Acid (0.9 - 1.7 mmol/l) 0.6 L Temperature (F) 98.3 O2 Delivery Device [facility] Laboratory Tests 03/09 03/09 03/09 03/09 03/09 0403 0202 0156 0114 0034 Chemistry Sodium (134 - 147 mEq/L) 144 Potassium (3.4 - 5.0 mEq/L) 3.9 Chloride (100 - 108 mEq/L) 108 Carbon Dioxide (21 - 33 mEq/l) 30 Anion Gap (0 - 20) 10 BUN (7 - 18 mg/dL) 67 H Creatinine (0.6 - 1.3 mg/dL) 1.9 H POC Creatinine (0.8 - 1.3 mg/dL) 1.9 H Glomerular Filtr Rate (70 - 80) 37.3 L Glucose (70 - 110 mg/dL) 224 H POC Glucose (70 - 110 MG/DL) 123 H 244 H 252 H POC Glucose (mg/dL) (70 - 110 MG/DL) 212 H Calcium (8.0 - 10.5 mg/dL) 8.6 Magnesium (1.80 - 2.40 mg/dL) 2.70 H 03/08 03/08 03/08 03/08 03/08 2331 2131 1934 1818 1546 Chemistry Sodium (134 - 147 mEq/L) 143 Potassium (3.4 - 5.0 mEq/L) 4.2 Chloride (100 - 108 mEq/L) 109 H Carbon Dioxide (21 - 33 mEq/l) 29 Anion Gap (0 - 20) 9 BUN (7 - 18 mg/dL) 67 H Creatinine (0.6 - 1.3 mg/dL) 2.0 H Glomerular Filtr Rate (70 - 80) 35.0 L Glucose (70 - 110 mg/dL) 243 H POC Glucose (70 - 110 MG/DL) 215 H 193 H 234 H 218 H Calcium (8.0 - 10.5 mg/dL) 8.2 03/08 0959 Chemistry POC Glucose (70 - 110 MG/DL) 229 H Laboratory Tests 03/09 0156 Hematology WBC (4.5 - 11.0 x10 3/uL) 5.6 RBC (4.00 - 5.60 x10 6/uL) 3.50 L Hgb (12.5 - 16.9 g/dL) 10.5 L Hct (37.5 - 50.7 %) 31.8 L MCV (81.0 - 99.0 fL) 90.9 MCH (27.0 - 33.0 pg) 30.0 MCHC (33.0 - 37.0 g/dL) 33.0 RDW (11.5 - 14.5 %) 15.7 H Plt Count (150 - 400 x10 3/uL) 119 L MPV (7.0 - 9.0 fL) 11.3 H Neut % (Auto) (56.0 - 77.0 %) 85.6 H Lymph % (Auto) (14.0 - 32.0 %) 4.6 L [place] % (Auto) (4.8 - 9.0 %) 9.1 H Eos % (Auto) (0.3 - 3.7 %) 0.0 L Baso % (Auto) (0.0 - 2.0 %) 0.0 Neut # (Auto) (2.0 - 7.6 x10 3/uL) 4.81 Lymph # (Auto) (1.0 - 3.8 x10 3/uL) 0.26 L [place] # (Auto) (0.1 - 0.8 x10 3/uL) 0.51 Eos # (Auto) (0.0 - 0.2 x10 3/uL) 0.00 Baso # (Auto) (0.0 - 0.2 x10 3/uL) 0.00 Abs Immat Gran (auto) (0.00 - 0.03 x10 3/uL) 0.04 H Add Manual Diff NO Immature Gran % (0.0 - 2.0 %) 0.7 Nucleated RBC % (0 - 0 %) 0.0 Nucleated RBCs # (Man) (0.0 - 0.1 x10 3/uL) 0.00 Laboratory Tests 03/09/23 0156:[Embedded Image Not Available] 03/08/23 1818:[Embedded Image Not Available] Radiology dataRecent Impressions:RADIOLOGY - XR CHEST 1 V 03/09 08 Report Impression - Status: SIGNED Entered: 03/09/202318 IMPRESSION: No significant change in the lungs.Impression By: [email or web address] - Ezekiel Esteves M.D. Results: labs reviewed, vital signs reviewed, rhythm personally rev'd, current med profile rev'd Diagnosis, Assessment PlanFree text A P: Problem List: Chest painWheezingDyspneaMultivessel coronary artery diseaseNon-ST elevation MIStatus post CABG x5 and ILAAElective ventilator dependenceAcute pulmonary insufficiency following major cardiothoracic surgeryAcute blood loss anemiaMetabolic acidosisLactic acidosisHypokalemiaHyperglycemiaChronic steroid dependenceSevere left carotid stenosisHistory of severe COPDConstipation Assessment and Plan: Tevin Nye is a 72-year-old gentleman with past medical history significant for hypertension, diabetes, dyslipidemia, former smoker quit in 2008, BPH, prostate cancer status postradiation severe COPD, not home oxygen dependent, severe left carotid stenosis, who was admitted to the medical floor with diagnosis of NSTEMI. He was found to have severe multivessel coronary disease on cardiac catheterization. Patient also had shortness of breath and wheezing. He was seen by pulmonology and started on steroid therapy along with nebulizer treatments. Patient underwent elective coronary artery bypass grafting surgery and received 4 jumps along with isolation of left atrial appendage. He came outof the OR with norepinephrine at 4 mcg and epinephrine at 2 mcg. EF was normal. Patient received parasternal block. Intraoperatively he received 1.5 L of crystalloids, 250 mL of Cell Saver, hemoglobin was 8.3 g/dL but on arrival his latest hemoglobin is 6.9 g/dL. Patient has been ordered 2 units of packed red cells. Intra-Op urine output was 425 mL and EBL was 100 mL. Patient received fentanyl and last neuromuscular blockade dose was at 3:15 PM. Patient was givenhydrocortisone 100 mg IV at 2:45 PM for chronic steroid dependence. He is currently on assist-control at 18 tidal volume 480 PEEP of 5 and 50% FiO2 and ismoving tidal volumes at 470+. Vital signs are stable with heart rate 82 sinus rhythm, blood pressure 95/41 mmHg, pulse ox 100% while on 50% FiO2 and respiratory rate is 14. Chest tube output is minimal at 3 mm each. Patient wasordered albumin 25% to 50 mL. Pupils are bilaterally symmetrical and reactive to light measuring 3 mm on each side. Lab work upon arrival in the CVICU room #2201 revealed a potassium of 3.3, glucose 230, creatinine 1.46 mg/dL, hemoglobinof 6.9 g/dL and hematocrit of 20%. Tevin Gonzalez is a 72 y.o. male with PMH of hypertension, dyslipidemia, diabetes, former smoker (quit 2008), BPH, prostate CA s/p radiation, COPD (uses inhaler at home, no home oxygen), and PE (November 2022 on eliquis) who presented to [facility] with chest pain, dyspnea on exertion, and NSTEMI. Coronary angiogram was done and revealed severe multivessel coronary artery disease. Patient was then transferred to [facility] for CV surgery evaluation and need for CABG. on the floor he had chest pain at rest and was transferred to the ICU for nitroglycerin drip and preoperative workup. Also noted to have chest pain - which he states is better and related to when he coughs. Currently without any pain. Patient underwent elective CABG x5 and isolation of left atrial appendage on 03/04/2023. Patient is postop day 0 after CABG x5 and ILAAHas severe left carotid stenosisOptimize systolic blood pressure to greater than 130 mmHgPatient was on chronic steroid therapy with Solu-MedrolAdrenal cortical support with hydrocortisone 25 mg IV every 8 hoursHas acute blood loss anemia with a hemoglobin of 6.9 g/dLTransfuse 2 units of packed red cellsPatient received Hydrocortisone 100 mg IV at 2:45 PM Start on Hydrocortisone 25 mg every 8 hoursAlso received parasternal blockCurrently on assist-control at 18 tidal volume 480 PEEP of 5 and 50% UrF7Uvptdq blood gas shows a pH of 7.28, pCO2 of 43 mmHg, pO2 of 175 mmHg and bicarbonate of 20 mmol with base excess at -6.5Patient has been ordered 1 amp of sodium bicarbonateRecheck ABGs in 1 hourChest tube output is minimal at 3 mL in both left pleural and mediastinal chest tubeBlood pressure is low upon arrival at 95/41 mm of HgOptimize blood pressure with Norepinephrine, titrate to a map of 70 or greaterAvoid sedationMonitor chest tube outputPupils are bilaterally symmetrical and reactive to light measuring 3 mm on each sideReplete potassium, check magnesium and ionized calciumFollow BMPGlycemic control with insulin drip, latest blood glucose is 230 mg/dL SCDs for DVT prophylaxis Noézach Madrid MD [facility].32 PM 03/07/2023Neurologically patient is at baseline. Pain well controlledOn NC 2 L during the day and BiPAP at night. ABG and CXR reviewed. small right pleural effusion seen Continue duonebs, wean steroids to daily, pulmonary following In SR, stop amiodarone drip, continue beta she 12.5 mg metoprolol and amidoarone 400 BID LFTs within normal limits.Continue aspirin and Plavix.PPI daily.Discontinue the left pleural chest tube.No bowel movement yet. Abdomen soft. Give milk of mag.Creatinine is downtrending and is now 2.8.Continue to monitor the urine output.Renal following.Hold nephrotoxic medications.On insulin drip since he is on steroids. Continue to monitor for now.SCDs for DVT prophylaxis.Rehab evaluation Total critical care time 45 minutes excluding procedures 03/08/2023 Patient seen and examined in CVICU room #2201 this morning. Patient is postop day 4 after CABG x5 and isolation of left atrial appendage. No acute events reported overnight. Kidney function is improving and the creatinine is 2.5 mg/dL this morning. Urine output was 550 mL overnight. Patient is on 2 L nasal cannula oxygen. He has history of COPD. Tolerating oral diet and having bowel movement. Patient has been able to ambulate with physical therapy. All drips have been discontinued. Blood pressure stable. Vital signs stable. Patient isawake, interactive, following commands and moving all 4 extremities. Tevin Nye is a 72-year-old gentleman with past medical history significant for hypertension, diabetes, dyslipidemia, former smoker quit in 2008, BPH, prostate cancer status postradiation severe COPD, not home oxygen dependent, severe left carotid stenosis, who was admitted to the medical floor with diagnosis of NSTEMI. He was found to have severe multivessel coronary disease on cardiac catheterization. Patient also had shortness of breath and wheezing. He was seen by pulmonology and started on steroid therapy along with nebulizer treatments. Patient underwent elective coronary artery bypass grafting surgery and received 4 jumps along with isolation of left atrial appendage. He came outof the OR with norepinephrine at 4 mcg and epinephrine at 2 mcg. EF was normal. Patient received parasternal block. Intraoperatively he received 1.5 L of crystalloids, 250 mL of Cell Saver, hemoglobin was 8.3 g/dL but on arrival his latest hemoglobin is 6.9 g/dL. Patient has been ordered 2 units of packed red cells. Intra-Op urine output was 425 mL and EBL was 100 mL. Patient received fentanyl and last neuromuscular blockade dose was at 3:15 PM. Patient was givenhydrocortisone 100 mg IV at 2:45 PM for chronic steroid dependence. He is currently on assist-control at 18 tidal volume 480 PEEP of 5 and 50% FiO2 and ismoving tidal volumes at 470+. Vital signs are stable with heart rate 82 sinus rhythm, blood pressure 95/41 mmHg, pulse ox 100% while on 50% FiO2 and respiratory rate is 14. Chest tube output is minimal at 3 mm each. Patient wasordered albumin 25% to 50 mL. Pupils are bilaterally symmetrical and reactive to light measuring 3 mm on each side. Lab work upon arrival in the CVICU room #2201 revealed a potassium of 3.3, glucose 230, creatinine 1.46 mg/dL, hemoglobinof 6.9 g/dL and hematocrit of 20%. Tevin Gonzalez is a 72 y.o. male with PMH of hypertension, dyslipidemia, diabetes, former smoker (quit 2008), BPH, prostate CA s/p radiation, COPD (uses inhaler at home, no home oxygen), and PE (November 2022 on eliquis) who presented to [facility] with chest pain, dyspnea on exertion, and NSTEMI. Coronary angiogram was done and revealed severe multivessel coronary artery disease. Patient was then transferred to [facility] for CV surgery evaluation and need for CABG. on the floor he had chest pain at rest and was transferred to the ICU for nitroglycerin drip and preoperative workup. Also noted to have chest pain - which he states is better and related to when he coughs. Currently without any pain. Patient underwent elective CABG x5 and isolation of left atrial appendage on 03/04/2023. Patient is postop day 4 after CABG x5 and isolation of left atrial appendageExtubated now, tolerating oral diet and having bowel movementPatient was able to ambulate with physical therapyImmediate postop course was complicated with unresponsiveness and requiring reversal of anesthetic agentsPupils were blown and 5 mm unreactive to light bilaterallyEmergent CT scan of the head was unremarkable in the immediate postoperative.Patient had profound acidosis that was reversed with multiple bicarb infusionsEventually neurological status was resolvedPatient is awake, interactive, following commands and moving all 4 extremitiesAll drips have been discontinued Has severe COPDNot home oxygen dependentCurrently on 2 L nasal cannula oxygenAssess need for home O2 requirementDeveloped acute kidney injury on CKDCreatinine is 2.5 mg/dL slightly improved from 2.7 mg/dL yesterdayUrine output was 550 mL overnightFollow urine output and BMPPatient is tolerating oral dietBoth chest tubes have been removed SCDs for DVT prophylaxis Noé Madrid MD [facility].42 AM 03/09/2023 Patient seen and examined in CVICU room #2201 this morning and discussed during CT surgery rounds. No acute events were reported overnight. Patient is postop day 5 after CABG x5 and isolation of left atrial appendage. Postop course was complicated with acute kidney injury with a creatinine of 1.9 mg/dL. Patient also had severe metabolic acidosis that responded to multiple intravenous bicarbinfusions. Urine output is adequate. Patient is off oxygen on room air now. He is able to ambulate without any difficulty. Tolerating oral diet. DC Valencia catheter. Patient will receive 1 dose of Lasix 40 mg IV today. Start on amlodipine 5 mg PO daily as tolerated. Will receive milk of magnesia for bowel movement. Patient is still 6 kg heavier than the admission weight. Vital signs stable with mildly elevated blood pressure. Patient is awake, interactive, following commands and moving all 4 extremities. Tevin Nye is a 72-year-old gentleman with past medical history significant for hypertension, diabetes, dyslipidemia, former smoker quit in 2008, BPH, prostate cancer status postradiation severe COPD, not home oxygen dependent, severe left carotid stenosis, who was admitted to the medical floor with diagnosis of NSTEMI. He was found to have severe multivessel coronary disease on cardiac catheterization. Patient also had shortness of breath and wheezing. He was seen by pulmonology and started on steroid therapy along with nebulizer treatments. Patient underwent elective coronary artery bypass grafting surgery and received 4 jumps along with isolation of left atrial appendage. He came outof the OR with norepinephrine at 4 mcg and epinephrine at 2 mcg. EF was normal. Patient received parasternal block. Intraoperatively he received 1.5 L of crystalloids, 250 mL of Cell Saver, hemoglobin was 8.3 g/dL but on arrival his latest hemoglobin is 6.9 g/dL. Patient has been ordered 2 units of packed red cells. Intra-Op urine output was 425 mL and EBL was 100 mL. Patient received fentanyl and last neuromuscular blockade dose was at 3:15 PM. Patient was givenhydrocortisone 100 mg IV at 2:45 PM for chronic steroid dependence. He is currently on assist-control at 18 tidal volume 480 PEEP of 5 and 50% FiO2 and ismoving tidal volumes at 470+. Vital signs are stable with heart rate 82 sinus rhythm, blood pressure 95/41 mmHg, pulse ox 100% while on 50% FiO2 and respiratory rate is 14. Chest tube output is minimal at 3 mm each. Patient wasordered albumin 25% to 50 mL. Pupils are bilaterally symmetrical and reactive to light measuring 3 mm on each side. Lab work upon arrival in the CVICU room #2201 revealed a potassium of 3.3, glucose 230, creatinine 1.46 mg/dL, hemoglobinof 6.9 g/dL and hematocrit of 20%. Tevin Gonzalez is a 72 y.o. male with PMH of hypertension, dyslipidemia, diabetes, former smoker (quit 2008), BPH, prostate CA s/p radiation, COPD (uses inhaler at home, no home oxygen), and PE (November 2022 on eliquis) who presented to [facility] with chest pain, dyspnea on exertion, and NSTEMI. Coronary angiogram was done and revealed severe multivessel coronary artery disease. Patient was then transferred to [facility] for CV surgery evaluation and need for CABG. on the floor he had chest pain at rest and was transferred to the ICU for nitroglycerin drip and preoperative workup. Also noted to have chest pain - which he states is better and related to when he coughs. Currently without any pain. Patient underwent elective CABG x5 and isolation of left atrial appendage on 03/04/2023. Patient is postop day 5 after CABG x5 and isolation of left atrial appendageImaging postop course was complicated with acute kidney injury and severe metabolic acidosisPatient had bilaterally dilated and fixed pupils for a while till acidosis was corrected with multiple bicarbonate infusions and pushes after which she was able to recover neurologicallyImmediate CT scan of the head without contrast was unremarkablePatient is extubated now, ambulating with physical therapy, tolerating oral dietawaiting bowel movementHe is still 6 kg heavier than admission weight of 83 kg weighing 89 todayPatient required oxygen because of prior history of pulmonary fibrosis and COVIDinfectionHe is on room air now with oxygen saturation 93%Adequate urine output overnightCreatinine improved from 2.5 to 2 mg/deciliter yesterday and today stands at 1.9mg/dLPatient will receive another dose of 40 mg Lasix IVFollow urine output and BMPBlood pressure is mildly elevated at 157/84 mmHgPatient was on amlodipine in the pastWe will restart amlodipine 5 mg PO daily as toleratedDC Valencia catheterLeave central venous catheter and art line for nowMilk of magnesia for bowel movementHas anemia of acute blood lossDoes not meet transfusion threshold at this timeAwaiting placement SCDs for DVT prophylaxis Noé Madrid MD [facility].13 PM Consultants: anesthesiology, cardiology, cardiovascular surgery, critical/osteopathy doctor, hospitalistCode status: full codePlan discussed with: patient, consultants, nurseCritical care time: Minutes: 40 at 1424 RPT #:[id number] OF REPORTPRProgress [id number]:00G.[id number] able for patient [id number]:24:20 [facility] 2023-03-08 15:31:00 [id number]:31:00 [facility] ([facility])Pulmonology Progress NoteREPORT#:[id number] REPORT STATUS: SignedDATE:03/08/23 TIME: 1531 PATIENT: TEVIN NYE UNIT #: [id number]#: [id number] [address] AGE: 72 SEX: M ATTEND: Luci Villeda [facility] AUTHOR: Sharmila Alan * ALL edits or amendments must be made on the electronic/computer document * SubjectiveComments:On NC, feels better, no new complaints ROSAll systems rev neg: except as marked Objective GeneralVS/I O:Last Documented: Result Date Time B/P 171/58 03/08 1500 B/P Mean 88 03/08 1500 Pulse Ox 95 03/08 1500 Temp 37.1 03/08 1500 Pulse 66 03/08 1500 Resp 23 03/08 1500 O2 Delivery High flow nasal cannula 03/08 1059 O2 Flow Rate 4 03/08 1059 FiO2 40 03/08 0358 24 hour I O ending at 0700: 03/08 0700 03/07 1900 Intake Total 214.00 1647.00 Output Total 550 760 Balance -336.00 887.00 Intake, IV 14.00 87.00 Intake, Oral 200 1560 Output, Chest 80 Tube Drainage Output, Urine 550 680 Patient 89.9 kg Weight Weight Bed scale Measurement Method PATIENT WEIGHT: Weight (lb): 198Weight (oz): 3.13Weight (kg): 89.900 Medications:Active Meds + DC'd Last 24 HrsInsulin Human Lispro (HUMALOG) 0 AC HS SUBQ Furosemide (LASIX 40 mg/4 mL INJECTION) 40 MG ONCE ONE IV (DC) Methylprednisolone Sodium Succinate (Solu-Medrol 40 MG Vial) 20 MG DAILY IV Metoprolol Tartrate (LOPRESSOR) 12.5 MG Q12HR PO Ipratropium [place] (ATROVENT) 500 MCG RTQ2H PRN PRN INH Amiodarone HCl (CORDARONE) 400 MG Q12HR PO (CKD) Cyanocobalamin (Vitamin B-12 500 mcg tab) 500 MCG DAILY PO Ferrous Sulfate (FERROUS SULFATE) 325 MG DAILY PO Calcium Carbonate (TUMS CHEW TAB) 1,000 MG Q6H PRN PRN PO Bisacodyl (DULCOLAX) 10 MG ONCE PRN RECTAL Atorvastatin Calcium (LIPITOR) 40 MG 2100 PO Budesonide (PULMICORT RESPULES) 0.5 MG RTBID INH Formoterol Fumarate (PERFOROMIST) 20 MCG RTBID NEB Sterile Water (WATER FOR INJECTION) 1 ML ASDIR PRN IV Tamsulosin HCl (Flomax 0.4 mg) 0.8 MG PC BK PO Clopidogrel Bisulfate (Plavix) 75 MG DAILY PO Mupirocin (BACTROBAN 2% 22 GM OINTMENT) 1 APPLIC BID NASAL Polyethylene Glycol (MIRALAX) 17 GM DAILY PO Amiodarone HCl (AMIODARONE HCL) 450 MG ASDIR IV (CKD) Dextrose/Water (D5%W NON-DEHP) 250 MLPantoprazole (PROTONIX) 40 MG DAILY@0600 PO Aspirin (ASPIRIN) 81 MG DAILY PO Docusate Sodium (COLACE) 100 MG BID PO Sennosides (Senna Lax 8.6 MG TABLET) 17.2 MG BEDTIME PO Ipratropium [place] (ATROVENT) 500 MCG RTQ4H INH (DC) Acetaminophen (TYLENOL) 650 MG Q4H PRN PRN PO Acetaminophen (TYLENOL) 650 MG Q4H PRN PRN RECTAL Calcium Chloride (CALCIUM CHLORIDE) 1 GM ASDIR PRN IV Dextrose/Water (DEXTROSE 10% IN WATER) 125 ML ASDIR PRN IV (CKD) Dextrose/Water (DEXTROSE 10% IN WATER) 250 ML ASDIR PRN IV (CKD) Epinephrine (ADRENALIN CHLORIDE) 4 MG ASDIR IV Dextrose/Water (DEXTROSE 5% WATER) 246 MLGlucagon (GLUCAGON) 1 MG ASDIR PRN IM Insulin Human Regular (HumuLIN R) 100 UNIT ASDIR IV (DC) Sodium Chloride (SODIUM CHLORIDE 0.9%) 99 MLMagnesium Sulfate (MAGNESIUM SULFATE 4GM/SWFI 100ML) 100 ML ASDIR PRN IV Magnesium Sulfate (MAGNESIUM SULFATE 2GM/SWFI 50ML) 50 ML ASDIR PRN IV Magnesium Sulfate/Dextrose (MAGNESIUM SULFATE 1GM/D5W 100ML) 100 ML ASDIR PRN IV Nitroglycerin/Dextrose (NITROGLYCERIN 50,000MCG/D5W 250ML) 250 ML ASDIR IV Norepinephrine Bitartrate (NOREPINEPHRINE 8 MG/NS 250 ML) 250 ML TITRATE IV Ondansetron HCl (ZOFRAN) 4 MG Q6H PRN PRN IV Potassium Chloride (KCL 20MEQ/SWFI 100ML) 100 ML ASDIR PRN IV Sodium Bicarbonate (SODIUM BICARBONATE) 50 MEQ ASDIR PRN IV Physical ExamGeneral appearance: alert, awake, oriented, no acute distressHead/eyes: atraumatic, normocephalic, PERRLNeck: supple/no meningismus, no bruit/NL carotids, no JVD, no lymphadenopathyCardiovascular: normal S1/S2, no rub, no gallopRespiratory/chest: decreased breath sounds, prolonged exp phase, wheezing, symmetric expansionAbdomen: soft, normal bowel sounds, no distention, no guardingExtremities: no clubbing, no cyanosisNeuro/SALES ASSISTANT: alert, oriented X 3, no motor deficitsSkin: dry, normal colorPsychiatry: normal affect, no hallucinations ResultsFindings/Data:Laboratory Tests 03/08/23 0203:[Embedded Image Not Available] 03/07/23 1736:[Embedded Image Not Available]Laboratory Tests 03/08 209 Blood Gas Puncture Site Art Line O2 Saturation (90 - 100 %) 99.3 ABG pH (7.35 - 7.45) 7.352 ABG pCO2 (35.0 - 45 mmHg) 52.2 *H ABG pO2 (80 - 100.0 mmHg) 156.1 H ABG HCO3 (22.0 - 26.0 MMOL/L) 29.0 *H ABG Total CO2 30.7 ABG Base Excess (-4.0 - 4.0 MMOL/L) 3.4 ABG Hematocrit (37.5 - 50.7 %) 28 L ABG Hemoglobin (12.5 - 16.9 G/DL) 9.5 L Shayla Test N/A Sodium (134 - 147 mmol/L) 145 Potassium (3.4 - 5.0 mmol/L) 3.9 Chloride (100 - 108 mmol/L) 107 Ionized Calcium (1.12 - 1.32 MMOL/L) 1.22 Lactic Acid (0.9 - 1.7 mmol/l) < 0.3 L Temperature (F) 98.2 O2 Delivery Device [facility] Laboratory Tests 03/08 03/08 03/08 03/08 03/08 0959 0805 0625 0212 0209 Chemistry POC Creatinine (0.8 - 1.3 mg/dL) 2.4 H POC Glucose (70 - 110 MG/DL) 229 H 136 H 132 H 121 H POC Glucose (mg/dL) (70 - 110 MG/DL) 102 03/08 03/08 03/07 03/07 03/07 0203 0042 2251 2124 1959 Chemistry Sodium (134 - 147 mEq/L) 144 Potassium (3.4 - 5.0 mEq/L) 3.9 Chloride (100 - 108 mEq/L) 110 H Carbon Dioxide (21 - 33 mEq/l) 31 Anion Gap (0 - 20) 7 BUN (7 - 18 mg/dL) 74 H Creatinine (0.6 - 1.3 mg/dL) 2.5 H Glomerular Filtr Rate (70 - 80) 26.8 L Glucose (70 - 110 mg/dL) 140 H POC Glucose (70 - 110 MG/DL) 126 H 128 H 132 H 94 Calcium (8.0 - 10.5 mg/dL) 7.9 L Magnesium (1.80 - 2.40 mg/dL) 2.83 H 03/07 03/07 1736 1600 Chemistry Sodium (134 - 147 mEq/L) 144 Potassium (3.4 - 5.0 mEq/L) 4.0 Chloride (100 - 108 mEq/L) 109 H Carbon Dioxide (21 - 33 mEq/l) 28 Anion Gap (0 - 20) 11 BUN (7 - 18 mg/dL) 68 H Creatinine (0.6 - 1.3 mg/dL) 2.7 H Glomerular Filtr Rate (70 - 80) 24.4 L Glucose (70 - 110 mg/dL) 151 H POC Glucose (70 - 110 MG/DL) 189 H Calcium (8.0 - 10.5 mg/dL) 8.2 Laboratory Tests 03/08 0203 Hematology WBC (4.5 - 11.0 x10 3/uL) 6.2 RBC (4.00 - 5.60 x10 6/uL) 3.14 L Hgb (12.5 - 16.9 g/dL) 9.4 L Hct (37.5 - 50.7 %) 29.0 L MCV (81.0 - 99.0 fL) 92.4 MCH (27.0 - 33.0 pg) 29.9 MCHC (33.0 - 37.0 g/dL) 32.4 L RDW (11.5 - 14.5 %) 16.5 H Plt Count (150 - 400 x10 3/uL) 100 L MPV (7.0 - 9.0 fL) 11.1 H Neut % (Auto) (56.0 - 77.0 %) 87.0 H Lymph % (Auto) (14.0 - 32.0 %) 3.9 L [place] % (Auto) (4.8 - 9.0 %) 8.6 Eos % (Auto) (0.3 - 3.7 %) 0.0 L Baso % (Auto) (0.0 - 2.0 %) 0.2 Neut # (Auto) (2.0 - 7.6 x10 3/uL) 5.39 Lymph # (Auto) (1.0 - 3.8 x10 3/uL) 0.24 L [place] # (Auto) (0.1 - 0.8 x10 3/uL) 0.53 Eos # (Auto) (0.0 - 0.2 x10 3/uL) 0.00 Baso # (Auto) (0.0 - 0.2 x10 3/uL) 0.01 Abs Immat Gran (auto) (0.00 - 0.03 x10 3/uL) 0.02 Add Manual Diff NO Immature Gran % (0.0 - 2.0 %) 0.3 Nucleated RBC % (0 - 0 %) 0.0 Nucleated RBCs # (Man) (0.0 - 0.1 x10 3/uL) 0.00 Radiology data:Recent Impressions:RADIOLOGY - XR CHEST 1 V 03/08 08 Report Impression - Status: SIGNED Entered: 03/08/2023 0836 IMPRESSION: Unchanged appearance of the lungs.Impression By: BuckABDavid - Ezekiel Esteves M.D. Results: x-ray personally reviewed Diagnosis, Assessment PlanFree Text A P:1- Acute COPD exacerbation/postop respiratory insufficiency2- Recent pulmonary embolism on Eliquis3- NSTEMI/Multivessel coronary artery disease5- Hypertension6- History of tobacco use7- Obesity8- Acute renal failure9- S/P CABG X4 03/04/23 - BIPAP support as needed,- IV Solu-Medrol 20 mg daily- Continue Pulmicort Perforomist and Atrovent nebulizers- Chest tubes per CTS- Mucomyst/Hypersal as needed- CTA chest reviewed, no PE, emphysema, small effusions, RLL 1.[address] chest in 6-8 weeks. Patient informed - Monitor renal function, nephrology following. s/p Lasix 40 mg X1- CXR noted with pulm edema-stable- PT/OT at 1533 RPT #:[id number] OF REPORTPRProgress [id number]:[id number] able for patient [id number]:33:33 [facility] 2023-03-08 15:11:00 [id number]:11:00 [facility])Cardiothoracic Surgery ProgREPORT#:[id number] REPORT STATUS: SignedDATE:03/08/23 TIME: 1511 PATIENT: TEVIN NYE UNIT #: [id number]#: [id number] [address] [birth year] AGE: 72 SEX: M ATTEND: Luci Villeda MDADM AUTHOR: Luci Villeda MD * ALL edits or amendments must be made on the electronic/computer document * GeneralPost-op: day 4Status post:03/04/23 CABG x 4 (MCCORMICK-LAD,SVG-Renea, SVG-OM, SVG-PDA) ALAA EVH (LGSV) Posterior pericardiotomy SubjectiveChief complaint:chest pain Follow up CABG Review of SystemsConstitutional:Denies: chills, fatigue, generalized weakness. Skin:Denies: abrasion, bruising, laceration. Allergy/Immun:Denies: allergic reaction, anaphylaxis, rhinorrhea. Eyes:Denies: redness, visual loss/blurred, eye pain. ENT:Denies: ear ringing, throat swelling, toothache. Respiratory:Denies: [place] (dyspnea on exertion), pneumonia, SOB. Cardiovascular:Denies: chest pain, edema, orthopnea. GI:Denies: abdominal pain, anorexia, melena, nausea. :Denies: dysuria, flank pain. Musculoskeletal:Denies: arthritis, extremity pain, lumbar pain. Heme:Denies: adenopathy, bleeding, petechiae. Endocrine:Denies: cold intolerance, polydipsia, weight gain. Neuro:Denies: confusion, dizziness, seizure, syncope. All systems rev neg: except as marked Objective GeneralVS/I OLast Documented: Result Date Time B/P 133/55 03/08 1215 B/P Mean 78 03/08 1215 Pulse Ox 99 03/08 1215 Temp 37.3 03/08 1215 Pulse 62 03/08 1215 Resp 28 03/08 1215 O2 Delivery High flow nasal cannula 03/08 1059 O2 Flow Rate 4 03/08 1059 FiO2 40 03/08 0358 24 hour I O ending at 0700: 03/08 0700 03/07 1900 Intake Total 214.00 1647.00 Output Total 550 760 Balance -336.00 887.00 Intake, IV 14.00 87.00 Intake, Oral 200 1560 Output, Chest 80 Tube Drainage Output, Urine 550 680 Patient 89.9 kg Weight Weight Bed scale Measurement Method PATIENT WEIGHT: Weight (lb): 198Weight (oz): 3.13Weight (kg): 89.900 Dietitian Nutrition assessmentThe data set between the solid lines has been imported from the dietitian's assessment. BMI Calculated: 31.0Nutrition related diagnosis: Nutrition diagnosis details: Nutrition problem: Increased nutrient needsNutrition etiology: Acute illnessNutrition signs and symptoms: ESTIMATED NEEDS S/P SURGERYNutrition prescription: 1. RECOMMEND ADVANCE TO A CCD5 CARDIAC DIET APPROPRIATE. 2. PROVIDE GLUCERNA TID WITH MEALS. 3. HEALTHY HEART DIET EDUCATIONPRIOR TO DISCHARGE. 4. MONITOR PO, WT, LABS, BM.Dietitian name: Purvi Garay, DIETAssessment completed: 03/05/23 Physical ExamGeneral appearance: alert, awake, orientedWound/incision: Location:sternal Site condition: dressing clean dry, dressing intactHEENT: anicteric, mucosal membranes moist, pupils reactive to lightNeck: full range of motion, non-tenderCardiovascular: irregular rhythm, normal heart sounds, regular rate rhythmRespiratory: decreased breath sounds, aerating well, symmetric expansionAbdomen: soft, non-tenderGenitourinary: no bladder distentionExtremities: dry, moves allMusculoskeletal: full range of motionNeuro/SALES ASSISTANT: alert, oriented X 3Skin: dry, intactPsychiatry: normal affect, normal mood Current MedicationsMedications:Active Meds + DC'd Last 24 HrsInsulin Human Lispro (HUMALOG) 0 AC HS SUBQ Furosemide (LASIX 40 mg/4 mL INJECTION) 40 MG ONCE ONE IV (DC) Methylprednisolone Sodium Succinate (Solu-Medrol 40 MG Vial) 20 MG DAILY IV Metoprolol Tartrate (LOPRESSOR) 12.5 MG Q12HR PO Ipratropium [place] (ATROVENT) 500 MCG RTQ2H PRN PRN INH Amiodarone HCl (CORDARONE) 400 MG Q12HR PO (CKD) Cyanocobalamin (Vitamin B-12 500 mcg tab) 500 MCG DAILY PO Ferrous Sulfate (FERROUS SULFATE) 325 MG DAILY PO Calcium Carbonate (TUMS CHEW TAB) 1,000 MG Q6H PRN PRN PO Bisacodyl (DULCOLAX) 10 MG ONCE PRN RECTAL Atorvastatin Calcium (LIPITOR) 40 MG 2100 PO Budesonide (PULMICORT RESPULES) 0.5 MG RTBID INH Formoterol Fumarate (PERFOROMIST) 20 MCG RTBID NEB Sterile Water (WATER FOR INJECTION) 1 ML ASDIR PRN IV Tamsulosin HCl (Flomax 0.4 mg) 0.8 MG PC BK PO Clopidogrel Bisulfate (Plavix) 75 MG DAILY PO Mupirocin (BACTROBAN 2% 22 GM OINTMENT) 1 APPLIC BID NASAL Polyethylene Glycol (MIRALAX) 17 GM DAILY PO Amiodarone HCl (AMIODARONE HCL) 450 MG ASDIR IV (CKD) Dextrose/Water (D5%W NON-DEHP) 250 MLPantoprazole (PROTONIX) 40 MG DAILY@0600 PO Aspirin (ASPIRIN) 81 MG DAILY PO Docusate Sodium (COLACE) 100 MG BID PO Sennosides (Senna Lax 8.6 MG TABLET) 17.2 MG BEDTIME PO Ipratropium [place] (ATROVENT) 500 MCG RTQ4H INH (DC) Acetaminophen (TYLENOL) 650 MG Q4H PRN PRN PO Acetaminophen (TYLENOL) 650 MG Q4H PRN PRN RECTAL Calcium Chloride (CALCIUM CHLORIDE) 1 GM ASDIR PRN IV Dextrose/Water (DEXTROSE 10% IN WATER) 125 ML ASDIR PRN IV (CKD) Dextrose/Water (DEXTROSE 10% IN WATER) 250 ML ASDIR PRN IV (CKD) Epinephrine (ADRENALIN CHLORIDE) 4 MG ASDIR IV Dextrose/Water (DEXTROSE 5% WATER) 246 MLGlucagon (GLUCAGON) 1 MG ASDIR PRN IM Insulin Human Regular (HumuLIN R) 100 UNIT ASDIR IV (DC) Sodium Chloride (SODIUM CHLORIDE 0.9%) 99 MLMagnesium Sulfate (MAGNESIUM SULFATE 4GM/SWFI 100ML) 100 ML ASDIR PRN IV Magnesium Sulfate (MAGNESIUM SULFATE 2GM/SWFI 50ML) 50 ML ASDIR PRN IV Magnesium Sulfate/Dextrose (MAGNESIUM SULFATE 1GM/D5W 100ML) 100 ML ASDIR PRN IV Nitroglycerin/Dextrose (NITROGLYCERIN 50,000MCG/D5W 250ML) 250 ML ASDIR IV Norepinephrine Bitartrate (NOREPINEPHRINE 8 MG/NS 250 ML) 250 ML TITRATE IV Ondansetron HCl (ZOFRAN) 4 MG Q6H PRN PRN IV Potassium Chloride (KCL 20MEQ/SWFI 100ML) 100 ML ASDIR PRN IV Sodium Bicarbonate (SODIUM BICARBONATE) 50 MEQ ASDIR PRN IV ResultsFindings/Data:Laboratory Tests 03/08 020 Blood Gas Puncture Site Art Line O2 Saturation (90 - 100 %) 99.3 ABG pH (7.35 - 7.45) 7.352 ABG pCO2 (35.0 - 45 mmHg) 52.2 *H ABG pO2 (80 - 100.0 mmHg) 156.1 H ABG HCO3 (22.0 - 26.0 MMOL/L) 29.0 *H ABG Total CO2 30.7 ABG Base Excess (-4.0 - 4.0 MMOL/L) 3.4 ABG Hematocrit (37.5 - 50.7 %) 28 L ABG Hemoglobin (12.5 - 16.9 G/DL) 9.5 L Shayla Test N/A Sodium (134 - 147 mmol/L) 145 Potassium (3.4 - 5.0 mmol/L) 3.9 Chloride (100 - 108 mmol/L) 107 Ionized Calcium (1.12 - 1.32 MMOL/L) 1.22 Lactic Acid (0.9 - 1.7 mmol/l) < 0.3 L Temperature (F) 98.2 O2 Delivery Device HFNC Laboratory Tests 03/08 03/08 03/08 03/08 03/08 0959 0805 0673 9424 0208 Chemistry POC Creatinine (0.8 - 1.3 mg/dL) 2.4 H POC Glucose (70 - 110 MG/DL) 229 H 136 H 132 H 121 H POC Glucose (mg/dL) (70 - 110 MG/DL) 102 07/01 07/01 06/30 06/30 06/30 0203 0042 2251 2123 1959 Chemistry Sodium (134 - 147 mEq/L) 144 Potassium (3.4 - 5.0 mEq/L) 3.9 Chloride (100 - 108 mEq/L) 110 H Carbon Dioxide (21 - 33 mEq/l) 31 Anion Gap (0 - 20) 7 BUN (7 - 18 mg/dL) 74 H Creatinine (0.6 - 1.3 mg/dL) 2.5 H Glomerular Filtr Rate (70 - 80) 26.8 L Glucose (70 - 110 mg/dL) 140 H POC Glucose (70 - 110 MG/DL) 126 H 128 H 132 H 94 Calcium (8.0 - 10.5 mg/dL) 7.9 L Magnesium (1.80 - 2.40 mg/dL) 2.83 H 03/07 03/07 1736 1600 Chemistry Sodium (134 - 147 mEq/L) 144 Potassium (3.4 - 5.0 mEq/L) 4.0 Chloride (100 - 108 mEq/L) 109 H Carbon Dioxide (21 - 33 mEq/l) 28 Anion Gap (0 - 20) 11 BUN (7 - 18 mg/dL) 68 H Creatinine (0.6 - 1.3 mg/dL) 2.7 H Glomerular Filtr Rate (70 - 80) 24.4 L Glucose (70 - 110 mg/dL) 151 H POC Glucose (70 - 110 MG/DL) 189 H Calcium (8.0 - 10.5 mg/dL) 8.2 Laboratory Tests 03/08 203 Hematology WBC (4.5 - 11.0 x10 3/uL) 6.2 RBC (4.00 - 5.60 x10 6/uL) 3.14 L Hgb (12.5 - 16.9 g/dL) 9.4 L Hct (37.5 - 50.7 %) 29.0 L MCV (81.0 - 99.0 fL) 92.4 MCH (27.0 - 33.0 pg) 29.9 MCHC (33.0 - 37.0 g/dL) 32.4 L RDW (11.5 - 14.5 %) 16.5 H Plt Count (150 - 400 x10 3/uL) 100 L MPV (7.0 - 9.0 fL) 11.1 H Neut % (Auto) (56.0 - 77.0 %) 87.0 H Lymph % (Auto) (14.0 - 32.0 %) 3.9 L [place] % (Auto) (4.8 - 9.0 %) 8.6 Eos % (Auto) (0.3 - 3.7 %) 0.0 L Baso % (Auto) (0.0 - 2.0 %) 0.2 Neut # (Auto) (2.0 - 7.6 x10 3/uL) 5.39 Lymph # (Auto) (1.0 - 3.8 x10 3/uL) 0.24 L [place] # (Auto) (0.1 - 0.8 x10 3/uL) 0.53 Eos # (Auto) (0.0 - 0.2 x10 3/uL) 0.00 Baso # (Auto) (0.0 - 0.2 x10 3/uL) 0.01 Abs Immat Gran (auto) (0.00 - 0.03 x10 3/uL) 0.02 Add Manual Diff NO Immature Gran % (0.0 - 2.0 %) 0.3 Nucleated RBC % (0 - 0 %) 0.0 Nucleated RBCs # (Man) (0.0 - 0.1 x10 3/uL) 0.00 Radiology data:Recent Impressions:RADIOLOGY - XR CHEST 1 V 03/08 0819 Report Impression - Status: SIGNED Entered: 03/08/2023 0836 IMPRESSION: Unchanged appearance of the lungs.Impression By: [email or web address] - Ezekiel Esteves M.D. Results: labs reviewed, vital signs stable, rythm personally rev'd, x-ray personally reviewed, current med profile rev'd Diagnosis, Assessment PlanHospital course to date:This is a pleasant 72 year old male with past medical history of hypertension, dyslipidemia, DM-2 (on insulin), former smoker (quit 2018), BPH, prostate CA s/pradiation, COPD (uses inhaler at home, no home oxygen), and PE (November 2022 on eliquis) who presented to [facility] with chest pain, dyspnea on exertion, and NSTEMI. Coronary angiogram was done and revealed severe multivessel coronary artery disease. Patient was then transferred to [facility] for CV surgery evaluation and need for CABG. PLAN Admit patient to CVICUInitiate preop workupIncentive spirometer teachingCarotid ultrasoundBLE vein mappingCT chest non-contrastUA to r/o UTIEchocardiogramHeparin and Nitro dripConsult pulmonary, cardiology, and intensivistCoronary angiogram reviewed and patient will benefit from surgical revascularizaton. The surgery, risks involved, STS score, benefits, complications and alternatives were explained to the patient and his brother. He acknowledged understanding and is willing to proceed. We will tentatively schedule him for surgery tomorrow morning.Further recommendations to follow. 03/04/23CABG x 4 (MCCORMICK-LAD,SVG-Renea, SVG-OM, SVG-PDA)ALAAEVH (LGSV)Posterior pericardiotomy 03/05/23POD 1Patient alert, awake, and orientedLabs and CXR reviewedOn bipap 12/5 40%, wean off as toleratedTrend abgsWean off levo as toleratedKeep both chest tubesMonitor strict I Os and renal functionPT/OT, ambulate, OOB in chairDVT ppx with SCDsMonitor patient closely in CVICU 03/06/23POD 2Patient in stable conditionCXR and labs reviewedHGB 6.6, transfuse 2 units PRBCDiscontinue dopamine dripEchocardiogramDiscontinue both chest tubesCR increasing, renal following, UOP 25 cc/hrOOB in chairMonitor closely in CVICU 03/07/23POD 3Patient alert, awake, and oriented, no complaintsLabs and CXR reviewedOn 2l nasal cannula, encourage I-S useHgb stable 10.1Discontinue left pleural chest tubeOn amio drip 0.5Monitor renal function, Cr 2.9Consult rehabAmbulate patient with PT/OTKeep patient in CVICU 03/08/23POD 4Patient recovering wellCXR and labs reviewedWean oxygen off as toleratedNSR, off amio drip, continue poRenal following, CR improving now 2.5Encourage mobilization and I-S useKeep in CVICU Consultants: anesthesiology, cardiology, cardiovascular surgery, critical/osteopathy doctor, hospitalist at 1844 RPT #:[id number] OF REPORTPRProgress [id number]:11:00G.[id number] able for patient [id number]:44:39 [facility]ACL 2023-03-08 10:46:00 [id number] +[id number]/6N [id number]:46:00 [facility] ([facility]ECardiology Progress NoteREPORT#:[id number] REPORT STATUS: SignedDATE:03/08/23 TIME: 1046 PATIENT: TEVIN NYE UNIT #: [id number]#: [id number] [address] [birth year] AGE: 72 SEX: M ATTEND: Luci Villeda MDADM AUTHOR: Willie Lorenzana MD * ALL edits or amendments must be made on the electronic/computer document * SubjectiveChief complaint:Better Objective GeneralVS/I O:24 hour I O ending at 0700: 03/08 0700 06 1900 Intake Total 214.00 1647.00 Output Total 550 760 Balance -336.00 887.00 Intake, IV 14.00 87.00 Intake, Oral 200 1560 Output, Chest 80 Tube Drainage Output, Urine 550 680 Patient 89.9 kg Weight Weight Bed scale Measurement Method Vital Signs: Date Time Temp Pulse Resp B/P B/P Pulse O2 O2 Flow FiO2 Mean Ox Delivery Rate 03/08 815 157/58 87 03/08 815 36.8 72 26 145/66 95 99 03/08 0800 159/57 86 03/08 800 36.7 64 20 141/59 92 100 03/08 0746 165/59 90 03/08 0746 36.8 64 22 144/67 97 100 03/08 0730 127/52 76 07/01 0730 36.8 65 31 116/58 83 98 07/01 0716 140/53 79 07/01 0716 36.7 61 21 141/64 92 99 07/01 0713 99 High flow 4 nasal cannula 07/01 0700 Nasal 4 cannula 07/01 0700 142/49 76 07/01 0700 36.7 61 12 130/61 89 100 07/01 0630 154/52 81 07/01 0630 36.7 60 21 140/67 96 99 07/01 0600 150/56 86 07/01 0600 36.6 65 24 138/65 93 98 07/01 0530 36.4 66 24 158/59 91 07/01 0500 154/58 88 07/01 0500 36.4 59 20 140/66 95 99 07/01 0430 155/64 93 07/01 0430 36.4 59 20 127/64 88 99 07/01 0400 135/52 77 07/01 0400 36.5 52 19 123/62 87 99 07/01 0358 55 100 40 07/01 0358 100 BiPAP 40 07/01 0331 152/59 90 07/01 0330 36.4 56 26 155/61 91 100 07/01 0300 147/57 86 07/01 0300 36.4 55 17 134/68 94 100 07/01 0230 150/58 87 07/01 0230 36.5 58 20 143/62 89 99 07/01 0200 126/47 71 07/01 0200 36.6 53 20 117/59 83 100 07/01 0131 136/50 76 07/01 0130 36.6 57 18 138/52 78 88 07/01 0100 123/50 72 07/01 0100 36.7 52 18 112/56 78 98 07/01 0045 56 98 40 07/01 0045 98 BiPAP 40 07/01 0030 135/51 76 07/01 0030 36.7 57 21 119/60 85 96 07/01 0000 126/49 71 07/01 0000 36.7 54 19 114/56 79 97 06/30 2330 126/49 71 06/30 2330 36.7 54 20 117/59 84 99 06/30 2300 125/51 73 06/30 2300 36.9 59 21 112/58 82 96 06/30 2230 37.0 53 20 110/55 78 99 06/30 2200 37.0 54 21 111/57 80 98 06/30 2139 97 Nasal 4 cannula 30 2130 36.9 58 23 127/63 90 97 06/30 2100 36.8 68 21 141/65 94 98 06/30 2030 37.2 65 21 127/59 85 98 06/30 2000 37.3 71 23 136/63 93 97 06/30 1930 37.4 71 24 140/65 93 98 06/30 1900 36.8 06/30 1900 Nasal 4 cannula 03/07 1900 37.4 70 33 108/45 66 97 06/30 1830 136/49 73 06/30 1830 37.5 69 23 128/63 90 97 06/30 1815 133/49 72 06/30 1815 37.5 70 23 126/62 89 97 06/30 1800 136/48 71 06/30 1800 37.5 68 23 116/58 81 100 06/30 1745 116/43 63 06/30 1745 37.5 71 18 116/57 81 97 06/30 1730 116/43 64 06/30 1730 37.5 71 25 112/57 81 97 06/30 1715 147/51 76 06/30 1715 37.5 72 26 134/65 93 98 06/30 1700 140/48 73 06/30 1700 37.5 71 26 135/62 89 96 06/30 1646 95/38 55 06/30 1646 37.5 71 23 111/54 77 94 06/30 1630 128/47 70 06/30 1630 37.5 73 25 127/60 87 96 06/30 1616 125/48 70 06/30 1616 37.5 73 28 126/70 88 97 06/30 1600 133/47 71 06/30 1600 37.5 72 27 122/56 84 97 06/30 1545 142/49 74 06/30 1545 37.5 74 21 133/70 95 97 06/30 1530 139/55 80 06/30 1530 37.5 72 10 137/76 103 98 06/30 1527 99 High flow 4 nasal cannula 30 1515 119/46 68 06/30 1515 37.5 73 22 135/69 96 96 06/30 1500 148/52 79 06/30 1500 37.5 72 22 137/64 92 97 06/30 1446 117/47 69 06/30 1446 37.5 72 28 145/67 97 98 30 1431 135/47 72 03/07 1431 37.5 71 26 114/59 83 97 03/07 1415 149/50 77 03/07 1415 37.5 72 22 133/63 90 97 30 1400 151/51 79 03/07 1400 37.5 71 23 138/56 90 98 30 1345 157/53 82 03/07 1345 37.4 72 22 149/67 96 98 03/07 1330 114/41 65 03/07 1330 37.4 71 26 132/58 80 98 03/07 1315 146/49 76 03/07 1315 37.4 70 23 137/65 93 97 03/07 1300 144/48 76 03/07 1300 37.4 71 23 137/64 92 97 03/07 1245 142/47 73 03/07 1245 37.4 70 19 130/57 87 97 03/07 1230 149/49 76 03/07 1230 37.3 74 24 136/64 92 96 03/07 1215 149/50 77 03/07 1215 37.3 74 24 137/59 91 96 03/07 1200 153/50 79 03/07 1200 37.2 73 23 143/63 91 97 03/07 1145 146/52 80 03/07 1145 37.2 75 28 137/62 89 97 03/07 1130 122/47 72 03/07 1130 37.2 72 30 131/60 86 96 03/07 1115 140/48 73 03/07 1115 37.2 65 19 128/62 89 98 03/07 1100 121/43 66 03/07 1100 37.2 71 23 108/55 76 96 PATIENT WEIGHT: Weight (lb): 198Weight (oz): 3.13Weight (kg): 89.900 Medications:Active Meds + DC'd Last 24 HrsInsulin Human Lispro (HUMALOG) 0 AC HS SUBQ Methylprednisolone Sodium Succinate (Solu-Medrol 40 MG Vial) 20 MG DAILY IV Metoprolol Tartrate (LOPRESSOR) 12.5 MG Q12HR PO Ipratropium [place] (ATROVENT) 500 MCG RTQ2H PRN PRN INH Amiodarone HCl (CORDARONE) 400 MG Q12HR PO (CKD) Amlodipine Besylate (NORVASC) 5 MG DAILY PO (DC) Cyanocobalamin (Vitamin B-12 500 mcg tab) 500 MCG DAILY PO Ferrous Sulfate (FERROUS SULFATE) 325 MG DAILY PO Metoprolol Tartrate (LOPRESSOR) 25 MG Q12HR PO (DC) Methylprednisolone Sodium Succinate (Solu-Medrol 40 MG Vial) 20 MG Q12H IV (DC) Calcium Carbonate (TUMS CHEW TAB) 1,000 MG Q6H PRN PRN PO Bisacodyl (DULCOLAX) 10 MG ONCE PRN RECTAL Atorvastatin Calcium (LIPITOR) 40 MG 2100 PO Budesonide (PULMICORT RESPULES) 0.5 MG RTBID INH Formoterol Fumarate (PERFOROMIST) 20 MCG RTBID NEB Sterile Water (WATER FOR INJECTION) 1 ML ASDIR PRN IV Tamsulosin HCl (Flomax 0.4 mg) 0.8 MG PC BK PO Clopidogrel Bisulfate (Plavix) 75 MG DAILY PO Mupirocin (BACTROBAN 2% 22 GM OINTMENT) 1 APPLIC BID NASAL Polyethylene Glycol (MIRALAX) 17 GM DAILY PO Amiodarone HCl (AMIODARONE HCL) 450 MG ASDIR IV (CKD) Dextrose/Water (D5%W NON-DEHP) 250 MLPantoprazole (PROTONIX) 40 MG DAILY@0600 PO Aspirin (ASPIRIN) 81 MG DAILY PO Docusate Sodium (COLACE) 100 MG BID PO Sennosides (Senna Lax 8.6 MG TABLET) 17.2 MG BEDTIME PO Ipratropium [place] (ATROVENT) 500 MCG RTQ4H INH (DC) Acetaminophen (TYLENOL) 650 MG Q4H PRN PRN PO Acetaminophen (TYLENOL) 650 MG Q4H PRN PRN RECTAL Calcium Chloride (CALCIUM CHLORIDE) 1 GM ASDIR PRN IV Dextrose/Water (DEXTROSE 10% IN WATER) 125 ML ASDIR PRN IV (CKD) Dextrose/Water (DEXTROSE 10% IN WATER) 250 ML ASDIR PRN IV (CKD) Epinephrine (ADRENALIN CHLORIDE) 4 MG ASDIR IV Dextrose/Water (DEXTROSE 5% WATER) 246 MLGlucagon (GLUCAGON) 1 MG ASDIR PRN IM Insulin Human Regular (HumuLIN R) 100 UNIT ASDIR IV (DC) Sodium Chloride (SODIUM CHLORIDE 0.9%) 99 MLMagnesium Sulfate (MAGNESIUM SULFATE 4GM/SWFI 100ML) 100 ML ASDIR PRN IV Magnesium Sulfate (MAGNESIUM SULFATE 2GM/SWFI 50ML) 50 ML ASDIR PRN IV Magnesium Sulfate/Dextrose (MAGNESIUM SULFATE 1GM/D5W 100ML) 100 ML ASDIR PRN IV Nitroglycerin/Dextrose (NITROGLYCERIN 50,000MCG/D5W 250ML) 250 ML ASDIR IV Norepinephrine Bitartrate (NOREPINEPHRINE 8 MG/NS 250 ML) 250 ML TITRATE IV Ondansetron HCl (ZOFRAN) 4 MG Q6H PRN PRN IV Potassium Chloride (KCL 20MEQ/SWFI 100ML) 100 ML ASDIR PRN IV Sodium Bicarbonate (SODIUM BICARBONATE) 50 MEQ ASDIR PRN IV Physical ExamGeneral appearance: alert, awakeNeck: full range of motion, non-tender, normal thyroid, supple/no meningismus, no bruit/NL carotids, no JVD, no lymphadenopathy, no masses or swellingCardiovascular: CV assessment: regular rate and rhythmRespiratory: decreased breath sounds, clear to auscultationAbdomen: non-tender, normal bowel sounds, no distention, no guarding, no mass/organomegaly, no pulsatile mass, no reboundUpper extremity: UE assessment: normal capillary refill, no edemaLower extremity: LE assessment: normal capillary refill, no edema ResultsFindings/Data:Laboratory Tests 03/08 020 Blood Gas Puncture Site Art Line O2 Saturation (90 - 100 %) 99.3 ABG pH (7.35 - 7.45) 7.352 ABG pCO2 (35.0 - 45 mmHg) 52.2 *H ABG pO2 (80 - 100.0 mmHg) 156.1 H ABG HCO3 (22.0 - 26.0 MMOL/L) 29.0 *H ABG Total CO2 30.7 ABG Base Excess (-4.0 - 4.0 MMOL/L) 3.4 ABG Hematocrit (37.5 - 50.7 %) 28 L ABG Hemoglobin (12.5 - 16.9 G/DL) 9.5 L Shayla Test N/A Sodium (134 - 147 mmol/L) 145 Potassium (3.4 - 5.0 mmol/L) 3.9 Chloride (100 - 108 mmol/L) 107 Ionized Calcium (1.12 - 1.32 MMOL/L) 1.22 Lactic Acid (0.9 - 1.7 mmol/l) < 0.3 L Temperature (F) 98.2 O2 Delivery Device HFNC Laboratory Tests 03/08 03/08 03/08 03/08 03/08 0959 0805 0625 0212 0209 Chemistry POC Creatinine (0.8 - 1.3 mg/dL) 2.4 H POC Glucose (70 - 110 MG/DL) 229 H 136 H 132 H 121 H POC Glucose (mg/dL) (70 - 110 MG/DL) 102 03/08 03/08 03/07 03/07 03/07 0203 0042 2251 2124 1959 Chemistry Sodium (134 - 147 mEq/L) 144 Potassium (3.4 - 5.0 mEq/L) 3.9 Chloride (100 - 108 mEq/L) 110 H Carbon Dioxide (21 - 33 mEq/l) 31 Anion Gap (0 - 20) 7 BUN (7 - 18 mg/dL) 74 H Creatinine (0.6 - 1.3 mg/dL) 2.5 H Glomerular Filtr Rate (70 - 80) 26.8 L Glucose (70 - 110 mg/dL) 140 H POC Glucose (70 - 110 MG/DL) 126 H 128 H 132 H 94 Calcium (8.0 - 10.5 mg/dL) 7.9 L Magnesium (1.80 - 2.40 mg/dL) 2.83 H 03/07 03/07 03/07 1736 1600 1156 Chemistry Sodium (134 - 147 mEq/L) 144 Potassium (3.4 - 5.0 mEq/L) 4.0 Chloride (100 - 108 mEq/L) 109 H Carbon Dioxide (21 - 33 mEq/l) 28 Anion Gap (0 - 20) 11 BUN (7 - 18 mg/dL) 68 H Creatinine (0.6 - 1.3 mg/dL) 2.7 H Glomerular Filtr Rate (70 - 80) 24.4 L Glucose (70 - 110 mg/dL) 151 H POC Glucose (70 - 110 MG/DL) 189 H 202 H Calcium (8.0 - 10.5 mg/dL) 8.2 Laboratory Tests 03/08 203 Hematology WBC (4.5 - 11.0 x10 3/uL) 6.2 RBC (4.00 - 5.60 x10 6/uL) 3.14 L Hgb (12.5 - 16.9 g/dL) 9.4 L Hct (37.5 - 50.7 %) 29.0 L MCV (81.0 - 99.0 fL) 92.4 MCH (27.0 - 33.0 pg) 29.9 MCHC (33.0 - 37.0 g/dL) 32.4 L RDW (11.5 - 14.5 %) 16.5 H Plt Count (150 - 400 x10 3/uL) 100 L MPV (7.0 - 9.0 fL) 11.1 H Neut % (Auto) (56.0 - 77.0 %) 87.0 H Lymph % (Auto) (14.0 - 32.0 %) 3.9 L [place] % (Auto) (4.8 - 9.0 %) 8.6 Eos % (Auto) (0.3 - 3.7 %) 0.0 L Baso % (Auto) (0.0 - 2.0 %) 0.2 Neut # (Auto) (2.0 - 7.6 x10 3/uL) 5.39 Lymph # (Auto) (1.0 - 3.8 x10 3/uL) 0.24 L [place] # (Auto) (0.1 - 0.8 x10 3/uL) 0.53 Eos # (Auto) (0.0 - 0.2 x10 3/uL) 0.00 Baso # (Auto) (0.0 - 0.2 x10 3/uL) 0.01 Abs Immat Gran (auto) (0.00 - 0.03 x10 3/uL) 0.02 Add Manual Diff NO Immature Gran % (0.0 - 2.0 %) 0.3 Nucleated RBC % (0 - 0 %) 0.0 Nucleated RBCs # (Man) (0.0 - 0.1 x10 3/uL) 0.00 Laboratory Tests 03/08 0203 Chemistry Magnesium (1.80 - 2.40 mg/dL) 2.83 H Radiology data:Recent Impressions:RADIOLOGY - XR CHEST 1 V 03/08 819 Report Impression - Status: SIGNED Entered: 03/08/202336 IMPRESSION: Unchanged appearance of the lungs.Impression By: Herlinda Esteves M.D. Diagnosis, Assessment Plan Free Text DxA P NotesFree Text DxA P Notes:1- Severe COPD with exacerbation: As per Pulm2- Recent pulmonary embolism on Eliquis3- NSTEMI/Multivessel coronary artery disease: S/P CBBG, extubated and doing fair5- Hypertension" Will add Norvasc 5mg and increase Metoprolol to 25 BID6- History of tobacco use7. Wide complex tachy: Asymptomatic and suggests AFIB/SVT with aberrancy. Respomded to bolus of IV Amio. will increase po amio8. Acute on chronic renal failure pt is stable discussed with cvicu nurse and pt at 1048 RPT #:[id number] OF REPORTPRProgress [id number]:46:00G.[id number] able for patient [id number]:48:30 [facility] 2023-03-08 10:13:00 [id number] i/UKE35nurvtOjnC4FkK5dBDbEl1704-69-20T68:13:00 [facility] ([facility])Nephrology Progress NoteREPORT#:[id number] REPORT STATUS: SignedDATE:03/08/23 TIME: 1013 PATIENT: TEVIN NYE UNIT #: [id number]#: [id number] [address] [birth year] AGE: 72 SEX: M ATTEND: Luci Villeda [facility] AUTHOR: Glendy Paz MD * ALL edits or amendments must be made on the electronic/computer document * SubjectiveComments:Sitting up in the chair, still coughing up brownish sputum. Objective GeneralVS/I O:Vital Signs: Date Time Temp Pulse Resp B/P B/P Pulse O2 O2 Flow FiO2 Mean Ox Delivery Rate 03/08 815 157/58 87 03/08 815 98.2 72 26 145/66 95 99 03/08 800 159/57 86 03/08 800 98.1 64 20 141/59 92 100 07/01 0746 165/59 90 07/01 0746 98.2 64 22 144/67 97 100 07/01 0730 127/52 76 07/01 0730 98.2 65 31 116/58 83 98 07/01 0716 140/53 79 07/01 0716 98.1 61 21 141/64 92 99 07/01 0713 99 High flow 4 nasal cannula 07/01 0700 Nasal 4 cannula 07/01 0700 142/49 76 07/01 0700 98.1 61 12 130/61 89 100 07/01 0630 154/52 81 07/01 0630 98.1 60 21 140/67 96 99 07/01 0600 150/56 86 07/01 0600 97.9 65 24 138/65 93 98 07/01 0530 97.5 66 24 158/59 91 07/01 0500 154/58 88 07/01 0500 97.5 59 20 140/66 95 99 07/01 0430 155/64 93 07/01 0430 97.5 59 20 127/64 88 99 07/01 0400 135/52 77 07/01 0400 97.7 52 19 123/62 87 99 07/01 0358 55 100 40 07/01 0358 100 BiPAP 40 07/01 0331 152/59 90 07/01 0330 97.5 56 26 155/61 91 100 07/01 0300 147/57 86 07/01 0300 97.5 55 17 134/68 94 100 07/01 0230 150/58 87 07/01 0230 97.7 58 20 143/62 89 99 07/01 0200 126/47 71 07/01 0200 97.9 53 20 117/59 83 100 07/01 0131 136/50 76 07/01 0130 97.9 57 18 138/52 78 88 07/01 0100 123/50 72 07/01 0100 98.1 52 18 112/56 78 98 07/01 0045 56 98 40 07/01 0045 98 BiPAP 40 07/01 0030 135/51 76 07/01 0030 98.1 57 21 119/60 85 96 07/01 0000 126/49 71 07/01 0000 98.1 54 19 114/56 79 97 06/30 2330 126/49 71 06/30 2330 98.1 54 20 117/59 84 99 06/30 2300 125/51 73 06/30 2300 98.4 59 21 112/58 82 96 06/30 2230 98.6 53 20 110/55 78 99 06/30 2200 98.6 54 21 111/57 80 98 06/30 2139 97 Nasal 4 cannula 30 2130 98.4 58 23 127/63 90 97 06/30 2100 98.2 68 21 141/65 94 98 06/30 2030 99.0 65 21 127/59 85 98 06/30 2000 99.1 71 23 136/63 93 97 06/30 1930 99.3 71 24 140/65 93 98 06/30 1900 98.2 06/30 1900 Nasal 4 cannula 03/07 1900 99.3 70 33 108/45 66 97 06/30 1830 136/49 73 06/30 1830 99.5 69 23 128/63 90 97 06/30 1815 133/49 72 06/30 1815 99.5 70 23 126/62 89 97 06/30 1800 136/48 71 06/30 1800 99.5 68 23 116/58 81 100 06/30 1745 116/43 63 06/30 1745 99.5 71 18 116/57 81 97 06/30 1730 116/43 64 06/30 1730 99.5 71 25 112/57 81 97 06/30 1715 147/51 76 06/30 1715 99.5 72 26 134/65 93 98 06/30 1700 140/48 73 06/30 1700 99.5 71 26 135/62 89 96 06/30 1646 95/38 55 06/30 1646 99.5 71 23 111/54 77 94 06/30 1630 128/47 70 06/30 1630 99.5 73 25 127/60 87 96 06/30 1616 125/48 70 06/30 1616 99.5 73 28 126/70 88 97 06/30 1600 133/47 71 06/30 1600 99.5 72 27 122/56 84 97 06/30 1545 142/49 74 06/30 1545 99.5 74 21 133/70 95 97 06/30 1530 139/55 80 06/30 1530 99.5 72 10 137/76 103 98 06/30 1527 99 High flow 4 nasal cannula 03/07 1515 119/46 68 06/30 1515 99.5 73 22 135/69 96 96 06/30 1500 148/52 79 06/30 1500 99.5 72 22 137/64 92 97 06/30 1446 117/47 69 06/30 1446 99.5 72 28 145/67 97 98 06/30 1431 135/47 72 06/30 1431 99.5 71 26 114/59 83 97 06/30 1415 149/50 77 06/30 1415 99.5 72 22 133/63 90 97 06/30 1400 151/51 79 06/30 1400 99.5 71 23 138/56 90 98 06/30 1345 157/53 82 0630 1345 99.3 72 22 149/67 96 98 06/30 1330 114/41 65 0630 1330 99.3 71 26 132/58 80 98 06/30 1315 146/49 76 0630 1315 99.3 70 23 137/65 93 97 06/ 1300 144/48 76 06 1300 99.3 71 23 137/64 92 97 30 1245 142/47 73 03/07 1245 99.3 70 19 130/57 87 97 30 1230 149/49 76 03/07 1230 99.1 74 24 136/64 92 96 06/30 1215 149/50 77 0630 1215 99.1 74 24 137/59 91 96 06/30 1200 153/50 79 06/30 1200 99.0 73 23 143/63 91 97 /30 1145 146/52 80 06/30 1145 99.0 75 28 137/62 89 97 /30 1130 122/47 72 03/07 1130 99.0 72 30 131/60 86 96 06/30 1115 140/48 73 30 1115 99.0 65 19 128/62 89 98 06/30 1100 121/43 66 06 1100 99.0 71 23 108/55 76 96 0630 1045 142/51 78 06 1045 95 High flow 4 nasal cannula 03/07 1045 99.0 71 21 130/57 87 95 06/30 1030 128/46 70 06 1030 99.0 67 30 118/59 85 98 06/30 1015 136/48 72 06 1015 99.0 72 23 129/60 86 95 24 hour I O ending at 0700: 07/01 0700 06/30 1900 Intake Total 214.00 1647.00 Output Total 550 760 Balance -336.00 887.00 Intake, IV 14.00 87.00 Intake, Oral 200 1560 Output, Chest 80 Tube Drainage Output, Urine 550 680 Patient 89.9 kg Weight Weight Bed scale Measurement Method PATIENT WEIGHT: Weight (lb): 198Weight (oz): 3.13Weight (kg): 89.900 MedicationsActive Meds + DC'd Last 24 HrsMethylprednisolone Sodium Succinate (Solu-Medrol 40 MG Vial) 20 MG DAILY IV Metoprolol Tartrate (LOPRESSOR) 12.5 MG Q12HR PO Ipratropium [place] (ATROVENT) 500 MCG RTQ2H PRN PRN INH Amiodarone HCl (CORDARONE) 400 MG Q12HR PO (CKD) Amlodipine Besylate (NORVASC) 5 MG DAILY PO (DC) Cyanocobalamin (Vitamin B-12 500 mcg tab) 500 MCG DAILY PO Ferrous Sulfate (FERROUS SULFATE) 325 MG DAILY PO Metoprolol Tartrate (LOPRESSOR) 25 MG Q12HR PO (DC) Methylprednisolone Sodium Succinate (Solu-Medrol 40 MG Vial) 20 MG Q12H IV (DC) Calcium Carbonate (TUMS CHEW TAB) 1,000 MG Q6H PRN PRN PO Bisacodyl (DULCOLAX) 10 MG ONCE PRN RECTAL Atorvastatin Calcium (LIPITOR) 40 MG 2100 PO Budesonide (PULMICORT RESPULES) 0.5 MG RTBID INH Formoterol Fumarate (PERFOROMIST) 20 MCG RTBID NEB Sterile Water (WATER FOR INJECTION) 1 ML ASDIR PRN IV Tamsulosin HCl (Flomax 0.4 mg) 0.8 MG PC BK PO Clopidogrel Bisulfate (Plavix) 75 MG DAILY PO Mupirocin (BACTROBAN 2% 22 GM OINTMENT) 1 APPLIC BID NASAL Polyethylene Glycol (MIRALAX) 17 GM DAILY PO Amiodarone HCl (AMIODARONE HCL) 450 MG ASDIR IV (CKD) Dextrose/Water (D5%W NON-DEHP) 250 MLPantoprazole (PROTONIX) 40 MG DAILY@0600 PO Aspirin (ASPIRIN) 81 MG DAILY PO Docusate Sodium (COLACE) 100 MG BID PO Sennosides (Senna Lax 8.6 MG TABLET) 17.2 MG BEDTIME PO Ipratropium [place] (ATROVENT) 500 MCG RTQ4H INH (DC) Acetaminophen (TYLENOL) 650 MG Q4H PRN PRN PO Acetaminophen (TYLENOL) 650 MG Q4H PRN PRN RECTAL Calcium Chloride (CALCIUM CHLORIDE) 1 GM ASDIR PRN IV Dextrose/Water (DEXTROSE 10% IN WATER) 125 ML ASDIR PRN IV (CKD) Dextrose/Water (DEXTROSE 10% IN WATER) 250 ML ASDIR PRN IV (CKD) Epinephrine (ADRENALIN CHLORIDE) 4 MG ASDIR IV Dextrose/Water (DEXTROSE 5% WATER) 246 MLGlucagon (GLUCAGON) 1 MG ASDIR PRN IM Insulin Human Regular (HumuLIN R) 100 UNIT ASDIR IV (CKD) Sodium Chloride (SODIUM CHLORIDE 0.9%) 99 MLMagnesium Sulfate (MAGNESIUM SULFATE 4GM/SWFI 100ML) 100 ML ASDIR PRN IV Magnesium Sulfate (MAGNESIUM SULFATE 2GM/SWFI 50ML) 50 ML ASDIR PRN IV Magnesium Sulfate/Dextrose (MAGNESIUM SULFATE 1GM/D5W 100ML) 100 ML ASDIR PRN IV Nitroglycerin/Dextrose (NITROGLYCERIN 50,000MCG/D5W 250ML) 250 ML ASDIR IV Norepinephrine Bitartrate (NOREPINEPHRINE 8 MG/NS 250 ML) 250 ML TITRATE IV Ondansetron HCl (ZOFRAN) 4 MG Q6H PRN PRN IV Potassium Chloride (KCL 20MEQ/SWFI 100ML) 100 ML ASDIR PRN IV Sodium Bicarbonate (SODIUM BICARBONATE) 50 MEQ ASDIR PRN IV Physical ExamGeneral appearance: alert, awake, orientedHead/eyes: atraumatic, normocephalic, PERRLANeck: no JVD, no lymphadenopathyCardiovascular: normal heart sounds, regular rate and rhythm, no rubRespiratory: decreased breath sounds, aerating well, no distressAbdomen: non-tender, normal bowel sounds, soft, no reboundGenitourinary: urinary catheter, urineExtremities: pitting edema, no gangreneNeuro/SALES ASSISTANT: alert, normal speech ResultsFindings/Data:Laboratory Tests 03/08 020 Blood Gas Puncture Site Art Line O2 Saturation (90 - 100 %) 99.3 ABG pH (7.35 - 7.45) 7.352 ABG pCO2 (35.0 - 45 mmHg) 52.2 *H ABG pO2 (80 - 100.0 mmHg) 156.1 H ABG HCO3 (22.0 - 26.0 MMOL/L) 29.0 *H ABG Total CO2 30.7 ABG Base Excess (-4.0 - 4.0 MMOL/L) 3.4 ABG Hematocrit (37.5 - 50.7 %) 28 L ABG Hemoglobin (12.5 - 16.9 G/DL) 9.5 L Shayla Test N/A Sodium (134 - 147 mmol/L) 145 Potassium (3.4 - 5.0 mmol/L) 3.9 Chloride (100 - 108 mmol/L) 107 Ionized Calcium (1.12 - 1.32 MMOL/L) 1.22 Lactic Acid (0.9 - 1.7 mmol/l) < 0.3 L Temperature (F) 98.2 O2 Delivery Device [facility] Laboratory Tests 03/08 03/08 03/08 03/08 03/08 0959 0805 0625 0212 0209 Chemistry POC Creatinine (0.8 - 1.3 mg/dL) 2.4 H POC Glucose (70 - 110 MG/DL) 229 H 136 H 132 H 121 H POC Glucose (mg/dL) (70 - 110 MG/DL) 102 03/08 03/08 03/07 03/07 03/07 0203 0042 2251 2307 1959 Chemistry Sodium (134 - 147 mEq/L) 144 Potassium (3.4 - 5.0 mEq/L) 3.9 Chloride (100 - 108 mEq/L) 110 H Carbon Dioxide (21 - 33 mEq/l) 31 Anion Gap (0 - 20) 7 BUN (7 - 18 mg/dL) 74 H Creatinine (0.6 - 1.3 mg/dL) 2.5 H Glomerular Filtr Rate (70 - 80) 26.8 L Glucose (70 - 110 mg/dL) 140 H POC Glucose (70 - 110 MG/DL) 126 H 128 H 132 H 94 Calcium (8.0 - 10.5 mg/dL) 7.9 L Magnesium (1.80 - 2.40 mg/dL) 2.83 H 03/07 03/07 03/07 1736 1600 1156 Chemistry Sodium (134 - 147 mEq/L) 144 Potassium (3.4 - 5.0 mEq/L) 4.0 Chloride (100 - 108 mEq/L) 109 H Carbon Dioxide (21 - 33 mEq/l) 28 Anion Gap (0 - 20) 11 BUN (7 - 18 mg/dL) 68 H Creatinine (0.6 - 1.3 mg/dL) 2.7 H Glomerular Filtr Rate (70 - 80) 24.4 L Glucose (70 - 110 mg/dL) 151 H POC Glucose (70 - 110 MG/DL) 189 H 202 H Calcium (8.0 - 10.5 mg/dL) 8.2 Laboratory Tests 03/08 0203 Hematology WBC (4.5 - 11.0 x10 3/uL) 6.2 RBC (4.00 - 5.60 x10 6/uL) 3.14 L Hgb (12.5 - 16.9 g/dL) 9.4 L Hct (37.5 - 50.7 %) 29.0 L MCV (81.0 - 99.0 fL) 92.4 MCH (27.0 - 33.0 pg) 29.9 MCHC (33.0 - 37.0 g/dL) 32.4 L RDW (11.5 - 14.5 %) 16.5 H Plt Count (150 - 400 x10 3/uL) 100 L MPV (7.0 - 9.0 fL) 11.1 H Neut % (Auto) (56.0 - 77.0 %) 87.0 H Lymph % (Auto) (14.0 - 32.0 %) 3.9 L [place] % (Auto) (4.8 - 9.0 %) 8.6 Eos % (Auto) (0.3 - 3.7 %) 0.0 L Baso % (Auto) (0.0 - 2.0 %) 0.2 Neut # (Auto) (2.0 - 7.6 x10 3/uL) 5.39 Lymph # (Auto) (1.0 - 3.8 x10 3/uL) 0.24 L [place] # (Auto) (0.1 - 0.8 x10 3/uL) 0.53 Eos # (Auto) (0.0 - 0.2 x10 3/uL) 0.00 Baso # (Auto) (0.0 - 0.2 x10 3/uL) 0.01 Abs Immat Gran (auto) (0.00 - 0.03 x10 3/uL) 0.02 Add Manual Diff NO Immature Gran % (0.0 - 2.0 %) 0.3 Nucleated RBC % (0 - 0 %) 0.0 Nucleated RBCs # (Man) (0.0 - 0.1 x10 3/uL) 0.00 Radiology data:Recent Impressions:RADIOLOGY - XR CHEST 1 V 03/08 0819 Report Impression - Status: SIGNED Entered: 03/08/2023 0836 IMPRESSION: Unchanged appearance of the lungs.Impression By: Herlinda Esteves M.D. Diagnosis, Assessment PlanFree Text A P:1. JERAMY likely ATN secondary to IV contrast. Urine output improving. Sp NS at 75 cc/h for 1 L. Monitor respiratory status closely. Avoid nephrotoxic medications.creatinine improving at 3.1> 2.8>2.5 today. Will give Lasix 40 mg IV x1 today 2. Acute hypercapnic respiratory failure with COPD on nasal cannula currently. Pulmonary following 3. Coronary disease status post CABG postop care per CT surgery 4. Left carotid artery stenosis 5. Anemia PRBC as needed Discussed with brother at bedside 1. Left ventricle: The cavity size is normal. Wall thickness is normal. Systolic function is mildly reduced. The estimated ejection fraction is 40-44%. Doppler parameters are consistent with abnormal left ventricular relaxation (grade 1 diastolic dysfunction).2. Regional wall motion abnormality: Severe hypokinesis of the apical anterior, apical septal, apical lateral, and apical myocardium; hypokinesis of the basal-mid anteroseptal myocardium.3. Right ventricle: Systolic pressure is moderately increased.4. Mitral valve: There is mild regurgitation.5. Tricuspid valve: Estimated right ventricular systolic pressure is 46 mmHg. There is moderate regurgitation.6. Pericardium, extracardiac: A trivial pericardial effusion is identified.7. Inferior vena cava: The vessel is dilated. The respirophasic diameter changes are in the normal range (= 50%). Inferior vena cava diameter is 2.1 cm. on 03/04/23 at 1717 at 1243 RPT #:[id number] OF REPORTPRProgress [id number] able for patient [id number] [facility] 2023-03-08 09:36:00 [id number]:00 [facility])Critical Care Progress NoteREPORT#:[id number] REPORT STATUS: SignedDATE:03/08/23 TIME: 935 PATIENT: TEVIN NYE UNIT #: [id number]#: [id number] [address] AGE: 72 SEX: M ATTEND: Luci Villeda MDADM AUTHOR: Noé Madrid MD * ALL edits or amendments must be made on the electronic/computer document * SubjectiveChief complaint: Chest pain/Unstable anginaWheezingDyspneaMultivessel coronary artery diseaseNon-ST elevation MIStatus post CABG x5 and ILAAElective ventilator dependenceAcute pulmonary insufficiency following major cardiothoracic surgeryAcute blood loss anemiaMetabolic acidosisLactic acidosisHypokalemiaHyperglycemiaChronic steroid dependenceSevere left carotid stenosisHistory of severe COPD HPI: Patient seen and examined in CVICU room #2201 this morning. Patient is postop day 4 after CABG x5 and isolation of left atrial appendage. No acute events reported overnight. Kidney function is improving and the creatinine is 2.5 mg/dL this morning. Urine output was 550 mL overnight. Patient is on 2 L nasal cannula oxygen. He has history of COPD. Tolerating oral diet and having bowel movement. Patient has been able to ambulate with physical therapy. All drips have been discontinued. Blood pressure stable. Vital signs stable. Patient isawake, interactive, following commands and moving all 4 extremities. Tevin Nye is a 72-year-old gentleman with past medical history significant for hypertension, diabetes, dyslipidemia, former smoker quit in 2008, BPH, prostate cancer status postradiation severe COPD, not home oxygen dependent, severe left carotid stenosis, who was admitted to the medical floor with diagnosis of NSTEMI. He was found to have severe multivessel coronary disease on cardiac catheterization. Patient also had shortness of breath and wheezing. He was seen by pulmonology and started on steroid therapy along with nebulizer treatments. Patient underwent elective coronary artery bypass grafting surgery and received 4 jumps along with isolation of left atrial appendage. He came outof the OR with norepinephrine at 4 mcg and epinephrine at 2 mcg. EF was normal. Patient received parasternal block. Intraoperatively he received 1.5 L of crystalloids, 250 mL of Cell Saver, hemoglobin was 8.3 g/dL but on arrival his latest hemoglobin is 6.9 g/dL. Patient has been ordered 2 units of packed red cells. Intra-Op urine output was 425 mL and EBL was 100 mL. Patient received fentanyl and last neuromuscular blockade dose was at 3:15 PM. Patient was givenhydrocortisone 100 mg IV at 2:45 PM for chronic steroid dependence. He is currently on assist-control at 18 tidal volume 480 PEEP of 5 and 50% FiO2 and ismoving tidal volumes at 470+. Vital signs are stable with heart rate 82 sinus rhythm, blood pressure 95/41 mmHg, pulse ox 100% while on 50% FiO2 and respiratory rate is 14. Chest tube output is minimal at 3 mm each. Patient wasordered albumin 25% to 50 mL. Pupils are bilaterally symmetrical and reactive to light measuring 3 mm on each side. Lab work upon arrival in the CVICU room #2201 revealed a potassium of 3.3, glucose 230, creatinine 1.46 mg/dL, hemoglobinof 6.9 g/dL and hematocrit of 20%. Tevin Gonzalez is a 72 y.o. male with PMH of hypertension, dyslipidemia, diabetes, former smoker (quit 2008), BPH, prostate CA s/p radiation, COPD (uses inhaler at home, no home oxygen), and PE (November 2022 on eliquis) who presented to [facility] with chest pain, dyspnea on exertion, and NSTEMI. Coronary angiogram was done and revealed severe multivessel coronary artery disease. Patient was then transferred to [facility] for CV surgery evaluation and need for CABG. on the floor he had chest pain at rest and was transferred to the ICU for nitroglycerin drip and preoperative workup. Also noted to have chest pain - which he states is better and related to when he coughs. Currently without any pain. Patient underwent elective CABG x5 and isolation of left atrial appendage on 03/04/2023. Patient reports:No: abdominal pain, back pain, diarrhea, fever, shortness of breath, vomiting. Nursing reports:No: diarrhea, fever, shortness of breath, vomiting. Review of SystemsConstitutional:Denies: fatigue, fever. Skin:Denies: diaphoresis, ecchymosis. Allergy/Immun:Denies: anaphylaxis, hives. Eyes:Denies: discharge, visual loss/blurred, itching, diplopia. ENT:Denies: nose bleeding, throat swelling, tongue swelling. Respiratory:Denies: [place] (dyspnea on exertion), hemoptysis, SOB, wheezing. Cardiovascular:Denies: [place] (dyspnea on exertion), edema. GI:Denies: hematemesis, hematochezia. :Denies: hematuria, nocturia. Heme:Denies: bleeding, bruising. Endocrine:Denies: polydipsia, polyphagia. Neuro:Denies: confusion, dizziness, seizure. Psych:Denies: agitation, anxiety, hostile, stress. Objective GeneralVS/I OLast Documented: Result Date Time B/P 157/58 03/08 0815 B/P Mean 87 03/08 0815 Pulse Ox 99 03/08 0815 Temp 36.8 03/08 0815 Pulse 72 03/08 0815 Resp 26 03/08 0815 O2 Delivery Nasal cannula 03/08 07 O2 Flow Rate 4 03/08 0700 FiO2 40 03/08 0358 24 hour I O ending at 0700: 03/08 0700 03/07 1900 Intake Total 214.00 1647.00 Output Total 550 760 Balance -336.00 887.00 Intake, IV 14.00 87.00 Intake, Oral 200 1560 Output, Chest 80 Tube Drainage Output, Urine 550 680 Patient 89.9 kg Weight Weight Bed scale Measurement Method PATIENT WEIGHT: Weight (lb): 198Weight (oz): 3.13Weight (kg): 89.900 Medications:Active Meds + DC'd Last 24 HrsMethylprednisolone Sodium Succinate (Solu-Medrol 40 MG Vial) 20 MG DAILY IV Metoprolol Tartrate (LOPRESSOR) 12.5 MG Q12HR PO Ipratropium [place] (ATROVENT) 500 MCG RTQ2H PRN PRN INH Amiodarone HCl (CORDARONE) 400 MG Q12HR PO (CKD) Amlodipine Besylate (NORVASC) 5 MG DAILY PO (DC) Cyanocobalamin (Vitamin B-12 500 mcg tab) 500 MCG DAILY PO Ferrous Sulfate (FERROUS SULFATE) 325 MG DAILY PO Metoprolol Tartrate (LOPRESSOR) 25 MG Q12HR PO (DC) Methylprednisolone Sodium Succinate (Solu-Medrol 40 MG Vial) 20 MG Q12H IV (DC) Calcium Carbonate (TUMS CHEW TAB) 1,000 MG Q6H PRN PRN PO Bisacodyl (DULCOLAX) 10 MG ONCE PRN RECTAL Atorvastatin Calcium (LIPITOR) 40 MG 2100 PO Budesonide (PULMICORT RESPULES) 0.5 MG RTBID INH Formoterol Fumarate (PERFOROMIST) 20 MCG RTBID NEB Sterile Water (WATER FOR INJECTION) 1 ML ASDIR PRN IV Tamsulosin HCl (Flomax 0.4 mg) 0.8 MG PC BK PO Clopidogrel Bisulfate (Plavix) 75 MG DAILY PO Mupirocin (BACTROBAN 2% 22 GM OINTMENT) 1 APPLIC BID NASAL Polyethylene Glycol (MIRALAX) 17 GM DAILY PO Amiodarone HCl (AMIODARONE HCL) 450 MG ASDIR IV (CKD) Dextrose/Water (D5%W NON-DEHP) 250 MLPantoprazole (PROTONIX) 40 MG DAILY@0600 PO Aspirin (ASPIRIN) 81 MG DAILY PO Docusate Sodium (COLACE) 100 MG BID PO Sennosides (Senna Lax 8.6 MG TABLET) 17.2 MG BEDTIME PO Ipratropium [place] (ATROVENT) 500 MCG RTQ4H INH (DC) Acetaminophen (TYLENOL) 650 MG Q4H PRN PRN PO Acetaminophen (TYLENOL) 650 MG Q4H PRN PRN RECTAL Calcium Chloride (CALCIUM CHLORIDE) 1 GM ASDIR PRN IV Dextrose/Water (DEXTROSE 10% IN WATER) 125 ML ASDIR PRN IV (CKD) Dextrose/Water (DEXTROSE 10% IN WATER) 250 ML ASDIR PRN IV (CKD) Epinephrine (ADRENALIN CHLORIDE) 4 MG ASDIR IV Dextrose/Water (DEXTROSE 5% WATER) 246 MLGlucagon (GLUCAGON) 1 MG ASDIR PRN IM Insulin Human Regular (HumuLIN R) 100 UNIT ASDIR IV (CKD) Sodium Chloride (SODIUM CHLORIDE 0.9%) 99 MLMagnesium Sulfate (MAGNESIUM SULFATE 4GM/SWFI 100ML) 100 ML ASDIR PRN IV Magnesium Sulfate (MAGNESIUM SULFATE 2GM/SWFI 50ML) 50 ML ASDIR PRN IV Magnesium Sulfate/Dextrose (MAGNESIUM SULFATE 1GM/D5W 100ML) 100 ML ASDIR PRN IV Nitroglycerin/Dextrose (NITROGLYCERIN 50,000MCG/D5W 250ML) 250 ML ASDIR IV Norepinephrine Bitartrate (NOREPINEPHRINE 8 MG/NS 250 ML) 250 ML TITRATE IV Ondansetron HCl (ZOFRAN) 4 MG Q6H PRN PRN IV Potassium Chloride (KCL 20MEQ/SWFI 100ML) 100 ML ASDIR PRN IV Sodium Bicarbonate (SODIUM BICARBONATE) 50 MEQ ASDIR PRN IV Post-op: day 4Status post: CABG times 5 and ILAA Physical ExamGeneral appearance: alert, awake, oriented, no acute distress, pleasant, conversational, mental status normal, no respiratory distressHead/eyes: EOMI, PERRLENT: moist mucosal membranesCardiovascular: normal capillary refill, normal heart sounds, regular rate and rhythm, normal S1/B5Tgmvsgsbigf: aerating well, clear to auscultation, symmetric expansionAbdomen: soft, non-tenderGenitourinary: urinary catheter, no bladder distentionExtremities: no clubbing, no cyanosis, no edemaSkin: abnormal temperature, dry, no rashPsychiatry: normal affect, normal judgment/insight, normal mood, not homicidal, not suicidal, no hallucinations ResultsFindings/data:Laboratory Tests 03/08 020 Blood Gas Puncture Site Art Line O2 Saturation (90 - 100 %) 99.3 ABG pH (7.35 - 7.45) 7.352 ABG pCO2 (35.0 - 45 mmHg) 52.2 *H ABG pO2 (80 - 100.0 mmHg) 156.1 H ABG HCO3 (22.0 - 26.0 MMOL/L) 29.0 *H ABG Total CO2 30.7 ABG Base Excess (-4.0 - 4.0 MMOL/L) 3.4 ABG Hematocrit (37.5 - 50.7 %) 28 L ABG Hemoglobin (12.5 - 16.9 G/DL) 9.5 L Shayla Test N/A Sodium (134 - 147 mmol/L) 145 Potassium (3.4 - 5.0 mmol/L) 3.9 Chloride (100 - 108 mmol/L) 107 Ionized Calcium (1.12 - 1.32 MMOL/L) 1.22 Lactic Acid (0.9 - 1.7 mmol/l) < 0.3 L Temperature (F) 98.2 O2 Delivery Device [facility] Laboratory Tests 03/08 03/08 03/08 03/08 03/08 0805 0625 0212 0209 0203Chemistry Sodium (134 - 147 mEq/L) 144 Potassium (3.4 - 5.0 mEq/L) 3.9 Chloride (100 - 108 mEq/L) 110 H Carbon Dioxide (21 - 33 mEq/l) 31 Anion Gap (0 - 20) 7 BUN (7 - 18 mg/dL) 74 H Creatinine (0.6 - 1.3 mg/dL) 2.5 H POC Creatinine (0.8 - 1.3 mg/dL) 2.4 H Glomerular Filtr Rate (70 - 80) 26.8 L Glucose (70 - 110 mg/dL) 140 H POC Glucose (70 - 110 MG/DL) 136 H 132 H 121 H POC Glucose (mg/dL) (70 - 110 MG/DL) 102 Calcium (8.0 - 10.5 mg/dL) 7.9 L Magnesium (1.80 - 2.40 mg/dL) 2.83 H 03/08 03/07 03/07 03/07 03/07 0042 2251 2124 1959 1736 Chemistry Sodium (134 - 147 mEq/L) 144 Potassium (3.4 - 5.0 mEq/L) 4.0 Chloride (100 - 108 mEq/L) 109 H Carbon Dioxide (21 - 33 mEq/l) 28 Anion Gap (0 - 20) 11 BUN (7 - 18 mg/dL) 68 H Creatinine (0.6 - 1.3 mg/dL) 2.7 H Glomerular Filtr Rate (70 - 80) 24.4 L Glucose (70 - 110 mg/dL) 151 H POC Glucose (70 - 110 MG/DL) 126 H 128 H 132 H 94 Calcium (8.0 - 10.5 mg/dL) 8.2 03/07 03/07 1600 1156 Chemistry POC Glucose (70 - 110 MG/DL) 189 H 202 H Laboratory Tests 03/08 0203 Hematology WBC (4.5 - 11.0 x10 3/uL) 6.2 RBC (4.00 - 5.60 x10 6/uL) 3.14 L Hgb (12.5 - 16.9 g/dL) 9.4 L Hct (37.5 - 50.7 %) 29.0 L MCV (81.0 - 99.0 fL) 92.4 MCH (27.0 - 33.0 pg) 29.9 MCHC (33.0 - 37.0 g/dL) 32.4 L RDW (11.5 - 14.5 %) 16.5 H Plt Count (150 - 400 x10 3/uL) 100 L MPV (7.0 - 9.0 fL) 11.1 H Neut % (Auto) (56.0 - 77.0 %) 87.0 H Lymph % (Auto) (14.0 - 32.0 %) 3.9 L [place] % (Auto) (4.8 - 9.0 %) 8.6 Eos % (Auto) (0.3 - 3.7 %) 0.0 L Baso % (Auto) (0.0 - 2.0 %) 0.2 Neut # (Auto) (2.0 - 7.6 x10 3/uL) 5.39 Lymph # (Auto) (1.0 - 3.8 x10 3/uL) 0.24 L [place] # (Auto) (0.1 - 0.8 x10 3/uL) 0.53 Eos # (Auto) (0.0 - 0.2 x10 3/uL) 0.00 Baso # (Auto) (0.0 - 0.2 x10 3/uL) 0.01 Abs Immat Gran (auto) (0.00 - 0.03 x10 3/uL) 0.02 Add Manual Diff NO Immature Gran % (0.0 - 2.0 %) 0.3 Nucleated RBC % (0 - 0 %) 0.0 Nucleated RBCs # (Man) (0.0 - 0.1 x10 3/uL) 0.00 Laboratory Tests 03/08/23 0203:[Embedded Image Not Available] 03/07/23 1736:[Embedded Image Not Available] Radiology dataRecent Impressions:RADIOLOGY - XR CHEST 1 V 03/08 0819 Report Impression - Status: SIGNED Entered: 03/08/2023 0836 IMPRESSION: Unchanged appearance of the lungs.Impression By: Herlinda Esteves M.D. Results: labs reviewed, vital signs reviewed, rhythm personally rev'd, current med profile rev'd Diagnosis, Assessment PlanFree text A P: Problem List: Chest painWheezingDyspneaMultivessel coronary artery diseaseNon-ST elevation MIStatus post CABG x5 and ILAAElective ventilator dependenceAcute pulmonary insufficiency following major cardiothoracic surgeryAcute blood loss anemiaMetabolic acidosisLactic acidosisHypokalemiaHyperglycemiaChronic steroid dependenceSevere left carotid stenosisHistory of severe COPD Assessment and Plan: Tevin Nye is a 72-year-old gentleman with past medical history significant for hypertension, diabetes, dyslipidemia, former smoker quit in 2008, BPH, prostate cancer status postradiation severe COPD, not home oxygen dependent, severe left carotid stenosis, who was admitted to the medical floor with diagnosis of NSTEMI. He was found to have severe multivessel coronary disease on cardiac catheterization. Patient also had shortness of breath and wheezing. He was seen by pulmonology and started on steroid therapy along with nebulizer treatments. Patient underwent elective coronary artery bypass grafting surgery and received 4 jumps along with isolation of left atrial appendage. He came outof the OR with norepinephrine at 4 mcg and epinephrine at 2 mcg. EF was normal. Patient received parasternal block. Intraoperatively he received 1.5 L of crystalloids, 250 mL of Cell Saver, hemoglobin was 8.3 g/dL but on arrival his latest hemoglobin is 6.9 g/dL. Patient has been ordered 2 units of packed red cells. Intra-Op urine output was 425 mL and EBL was 100 mL. Patient received fentanyl and last neuromuscular blockade dose was at 3:15 PM. Patient was givenhydrocortisone 100 mg IV at 2:45 PM for chronic steroid dependence. He is currently on assist-control at 18 tidal volume 480 PEEP of 5 and 50% FiO2 and ismoving tidal volumes at 470+. Vital signs are stable with heart rate 82 sinus rhythm, blood pressure 95/41 mmHg, pulse ox 100% while on 50% FiO2 and respiratory rate is 14. Chest tube output is minimal at 3 mm each. Patient wasordered albumin 25% to 50 mL. Pupils are bilaterally symmetrical and reactive to light measuring 3 mm on each side. Lab work upon arrival in the CVICU room #2201 revealed a potassium of 3.3, glucose 230, creatinine 1.46 mg/dL, hemoglobinof 6.9 g/dL and hematocrit of 20%. Tevin Gonzalez is a 72 y.o. male with PMH of hypertension, dyslipidemia, diabetes, former smoker (quit 2008), BPH, prostate CA s/p radiation, COPD (uses inhaler at home, no home oxygen), and PE (November 2022 on eliquis) who presented to [facility] with chest pain, dyspnea on exertion, and NSTEMI. Coronary angiogram was done and revealed severe multivessel coronary artery disease. Patient was then transferred to [facility] for CV surgery evaluation and need for CABG. on the floor he had chest pain at rest and was transferred to the ICU for nitroglycerin drip and preoperative workup. Also noted to have chest pain - which he states is better and related to when he coughs. Currently without any pain. Patient underwent elective CABG x5 and isolation of left atrial appendage on 03/04/2023. Patient is postop day 0 after CABG x5 and ILAAHas severe left carotid stenosisOptimize systolic blood pressure to greater than 130 mmHgPatient was on chronic steroid therapy with Solu-MedrolAdrenal cortical support with hydrocortisone 25 mg IV every 8 hoursHas acute blood loss anemia with a hemoglobin of 6.9 g/dLTransfuse 2 units of packed red cellsPatient received Hydrocortisone 100 mg IV at 2:45 PM Start on Hydrocortisone 25 mg every 8 hoursAlso received parasternal blockCurrently on assist-control at 18 tidal volume 480 PEEP of 5 and 50% NcS5Luaahr blood gas shows a pH of 7.28, pCO2 of 43 mmHg, pO2 of 175 mmHg and bicarbonate of 20 mmol with base excess at -6.5Patient has been ordered 1 amp of sodium bicarbonateRecheck ABGs in 1 hourChest tube output is minimal at 3 mL in both left pleural and mediastinal chest tubeBlood pressure is low upon arrival at 95/41 mm of HgOptimize blood pressure with Norepinephrine, titrate to a map of 70 or greaterAvoid sedationMonitor chest tube outputPupils are bilaterally symmetrical and reactive to light measuring 3 mm on each sideReplete potassium, check magnesium and ionized calciumFollow BMPGlycemic control with insulin drip, latest blood glucose is 230 mg/dL SCDs for DVT prophylaxis Noé Madrid MD [facility].32 PM 03/07/2023Neurologically patient is at baseline. Pain well controlledOn NC 2 L during the day and BiPAP at night. ABG and CXR reviewed. small right pleural effusion seen Continue duonebs, wean steroids to daily, pulmonary following In SR, stop amiodarone drip, continue beta she 12.5 mg metoprolol and amidoarone 400 BID LFTs within normal limits.Continue aspirin and Plavix.PPI daily.Discontinue the left pleural chest tube.No bowel movement yet. Abdomen soft. Give milk of mag.Creatinine is downtrending and is now 2.8.Continue to monitor the urine output.Renal following.Hold nephrotoxic medications.On insulin drip since he is on steroids. Continue to monitor for now.SCDs for DVT prophylaxis.Rehab evaluation Total critical care time 45 minutes excluding procedures 03/08/2023 Patient seen and examined in CVICU room #2201 this morning. Patient is postop day 4 after CABG x5 and isolation of left atrial appendage. No acute events reported overnight. Kidney function is improving and the creatinine is 2.5 mg/dL this morning. Urine output was 550 mL overnight. Patient is on 2 L nasal cannula oxygen. He has history of COPD. Tolerating oral diet and having bowel movement. Patient has been able to ambulate with physical therapy. All drips have been discontinued. Blood pressure stable. Vital signs stable. Patient isawake, interactive, following commands and moving all 4 extremities. Tevin Nye is a 72-year-old gentleman with past medical history significant for hypertension, diabetes, dyslipidemia, former smoker quit in 2008, BPH, prostate cancer status postradiation severe COPD, not home oxygen dependent, severe left carotid stenosis, who was admitted to the medical floor with diagnosis of NSTEMI. He was found to have severe multivessel coronary disease on cardiac catheterization. Patient also had shortness of breath and wheezing. He was seen by pulmonology and started on steroid therapy along with nebulizer treatments. Patient underwent elective coronary artery bypass grafting surgery and received 4 jumps along with isolation of left atrial appendage. He came outof the OR with norepinephrine at 4 mcg and epinephrine at 2 mcg. EF was normal. Patient received parasternal block. Intraoperatively he received 1.5 L of crystalloids, 250 mL of Cell Saver, hemoglobin was 8.3 g/dL but on arrival his latest hemoglobin is 6.9 g/dL. Patient has been ordered 2 units of packed red cells. Intra-Op urine output was 425 mL and EBL was 100 mL. Patient received fentanyl and last neuromuscular blockade dose was at 3:15 PM. Patient was givenhydrocortisone 100 mg IV at 2:45 PM for chronic steroid dependence. He is currently on assist-control at 18 tidal volume 480 PEEP of 5 and 50% FiO2 and ismoving tidal volumes at 470+. Vital signs are stable with heart rate 82 sinus rhythm, blood pressure 95/41 mmHg, pulse ox 100% while on 50% FiO2 and respiratory rate is 14. Chest tube output is minimal at 3 mm each. Patient wasordered albumin 25% to 50 mL. Pupils are bilaterally symmetrical and reactive to light measuring 3 mm on each side. Lab work upon arrival in the CVICU room #2201 revealed a potassium of 3.3, glucose 230, creatinine 1.46 mg/dL, hemoglobinof 6.9 g/dL and hematocrit of 20%. Tevin Gonzalez is a 72 y.o. male with PMH of hypertension, dyslipidemia, diabetes, former smoker (quit 2008), BPH, prostate CA s/p radiation, COPD (uses inhaler at home, no home oxygen), and PE (November 2022 on eliquis) who presented to [facility] with chest pain, dyspnea on exertion, and NSTEMI. Coronary angiogram was done and revealed severe multivessel coronary artery disease. Patient was then transferred to [facility] for CV surgery evaluation and need for CABG. on the floor he had chest pain at rest and was transferred to the ICU for nitroglycerin drip and preoperative workup. Also noted to have chest pain - which he states is better and related to when he coughs. Currently without any pain. Patient underwent elective CABG x5 and isolation of left atrial appendage on 03/04/2023. Patient is postop day 4 after CABG x5 and isolation of left atrial appendageExtubated now, tolerating oral diet and having bowel movementPatient was able to ambulate with physical therapyImmediate postop course was complicated with unresponsiveness and requiring reversal of anesthetic agentsPupils were blown and 5 mm unreactive to light bilaterallyEmergent CT scan of the head was unremarkable in the immediate postoperative.Patient had profound acidosis that was reversed with multiple bicarb infusionsEventually neurological status was resolvedPatient is awake, interactive, following commands and moving all 4 extremitiesAll drips have been discontinued Has severe COPDNot home oxygen dependentCurrently on 2 L nasal cannula oxygenAssess need for home O2 requirementDeveloped acute kidney injury on CKDCreatinine is 2.5 mg/dL slightly improved from 2.7 mg/dL yesterdayUrine output was 550 mL overnightFollow urine output and BMPPatient is tolerating oral dietBoth chest tubes have been removed SCDs for DVT prophylaxis Noé Madrid MD FACP [facility].42 AM Consultants: anesthesiology, cardiology, cardiovascular surgery, critical/osteopathy doctor, hospitalistCode status: full codePlan discussed with: patient, consultants, nurse, interdisc care teamCritical care time: Minutes: 35 at 0945 RPT #:[id number] OF REPORTPRProgress [id number]:36:00G.[id number] able for patient [id number]:46:22 [facility] 2023-03-07 15:02:00 [id number]+[id number]:02:00 [facility]Ne[facility] Progress NoteREPORT#:[id number] REPORT STATUS: SignedDATE:03/07/23 TIME: 1502 PATIENT: TEVIN NYE UNIT #: [id number]#: [id number] [address] [birth year] AGE: 72 SEX: M ATTEND: Luci Villeda [facility] AUTHOR: Glendy Paz MD * ALL edits or amendments must be made on the electronic/computer document * SubjectiveComments:Sitting up in the chair, coughing with brownish sputum. Objective GeneralVS/I O:Vital Signs: Date Time Temp Pulse Resp B/P B/P Pulse O2 O2 Flow FiO2 Mean Ox Delivery Rate 03/07 1145 146/52 80 03/07 1145 99.0 75 28 137/62 89 97 03/07 1130 122/47 72 03/07 1130 99.0 72 30 131/60 86 96 03/07 1115 140/48 73 03/07 1115 99.0 65 19 128/62 89 98 03/07 1100 121/43 66 03/07 1100 99.0 71 23 108/55 76 96 / 1045 142/51 78 06 1045 95 High flow 4 nasal cannula 03/07 1045 99.0 71 21 130/57 87 95 06/30 1030 128/46 70 06/30 1030 99.0 67 30 118/59 85 98 / 1015 136/48 72 03/07 1015 99.0 72 23 129/60 86 95 06/30 1000 99.0 72 20 153/67 96 97 /30 0945 99.0 80 29 144/54 95 99 /30 0942 85 26 154/67 97 98 06/30 0915 151/58 86 06/30 0915 99.0 72 22 162/72 104 100 06/30 0900 162/54 85 06/30 0900 98.8 72 24 162/72 103 99 /30 0850 164/53 85 06/30 0850 75 32 155/65 94 100 06/30 0800 Nasal 2 cannula /30 0747 146/55 82 06/30 0747 71 26 190/78 112 92 06/30 0744 93 High flow 2 nasal cannula /30 0731 147/53 79 06/30 0731 67 23 95/55 70 96 06/30 0716 156/55 83 06/30 0716 68 26 140/63 91 94 06/30 0700 146/54 81 06/30 0700 98.8 67 23 145/67 96 93 06/30 0659 68 25 147/56 83 92 06/30 0646 136/56 82 06/30 0646 68 26 147/67 96 92 06/30 0645 66 32 155/60 91 93 06/30 0642 67 20 93 06/30 0639 66 23 168/61 94 94 06/30 0636 167/60 92 06/30 0636 67 25 92 06/30 0630 67 23 164/102 126 93 06/30 0615 150/62 88 06/30 0615 63 24 130/66 92 100 06/30 0600 131/66 93 06/30 0600 65 19 142/61 85 99 06/30 0545 131/65 93 06/30 0545 65 19 136/60 82 99 06/30 0530 141/65 93 06/30 0530 63 20 149/118 121 100 06/30 0515 154/73 105 06/30 0515 71 26 95 06/30 0513 154/68 98 06/30 0513 72 30 158/59 88 90 06/30 0500 66 19 144/14 68 06/30 0445 158/74 107 06/30 0445 66 21 100 06/30 0430 156/72 103 06/30 0430 62 25 162/65 95 100 06/30 0415 138/68 97 06/30 0415 66 20 156/62 91 99 06/30 0400 140/65 97 06/30 0400 62 21 154/60 89 99 06/30 0353 62 21 153/60 89 99 06/30 0345 151/70 101 06/30 0345 64 22 167/63 97 99 06/30 0330 158/69 106 06/30 0330 68 29 183/70 107 100 06/30 0315 66 21 176/68 103 99 06/30 0301 98.1 68 15 145/63 91 93 06/30 0300 68 23 159/62 94 93 06/30 0300 68 93 06/30 0245 67 21 95 06/30 0230 150/68 97 06/30 0230 64 21 166/66 99 97 06/30 0215 140/66 95 06/30 0215 67 23 160/62 93 96 06/30 0200 152/74 106 06/30 0200 62 19 161/65 96 99 06/30 0145 154/70 107 06/30 0145 61 18 99 06/30 0130 65 21 99 06/30 0125 68 100 40 03/07 0122 168/79 113 06 0122 67 20 99 0630 0115 70 21 92 0630 0100 139/73 96 06/30 0100 63 21 157/63 92 97 06/30 0045 144/73 102 06/30 0045 98.6 63 19 161/64 95 97 06/30 0030 143/70 100 06/30 0030 63 20 161/64 94 97 0630 0015 160/72 104 06/30 0015 65 23 95 06/ 0000 142/66 99 06/ 0000 66 22 158/62 92 95 03/06 2345 157/70 101 03/06 2345 66 23 167/66 97 94 03/06 2330 159/74 107 03/06 2330 65 23 96 03/06 2315 66 22 95 03/06 2300 149/77 103 03/06 2300 69 24 165/66 99 94 03/06 2245 139/71 99 03/06 2245 64 18 152/61 89 97 03/06 2230 142/70 98 03/06 2230 65 20 152/60 89 96 03/06 2215 141/69 99 03/06 2215 64 20 154/60 89 96 03/06 2200 140/67 97 03/06 2200 63 19 155/60 89 96 03/06 2145 69 20 95 03/06 2130 147/70 100 03/06 2130 65 21 160/61 93 95 03/06 2115 160/75 108 03/06 2115 69 24 93 03/06 2100 70 25 93 03/06 2045 151/71 105 03/06 2045 66 20 163/64 95 96 03/06 2030 156/74 106 03/06 2030 66 20 166/64 96 95 03/06 2015 141/70 100 03/06 2015 66 19 160/62 92 95 03/06 2000 99.0 03/06 2000 Nasal 2 cannula 03/06 2000 144/68 98 03/06 2000 67 22 167/64 145 97 03/06 1945 144/66 95 03/06 1945 68 23 155/59 88 97 03/06 1930 165/79 113 03/06 1930 72 22 104 97 03/06 1922 71 95 03/06 1922 95 Nasal 4 cannula 03/06 1915 166/76 109 03/06 1915 71 24 93 03/06 1900 159/74 107 03/06 1900 72 22 169/58 92 95 03/06 1845 162/66 105 03/06 1845 99.7 73 23 172/60 94 96 03/06 1839 167/74 107 03/06 1839 99.5 74 23 172/59 93 95 03/06 1815 152/70 101 03/06 1815 99.5 72 24 155/52 84 96 03/06 1800 140/63 90 03/06 1800 99.3 75 24 156/53 84 95 03/06 1745 149/67 95 03/06 1745 99.3 70 25 151/51 79 98 03/06 1730 131/62 89 03/06 1730 99.1 71 25 138/47 74 96 03/06 1715 156/70 100 03/06 1715 99.1 70 26 149/52 80 96 03/06 1700 179/63 106 03/06 1700 99.1 74 24 153/53 82 95 03/06 1645 169/74 107 03/06 1645 99.1 74 24 164/60 92 97 03/06 1630 134/62 92 03/06 1630 99.3 66 18 130/49 73 98 03/06 1615 144/69 98 03/06 1615 99.3 68 17 151/55 83 98 03/06 1600 146/66 98 03/06 1600 99.3 68 19 148/55 82 98 03/06 1545 150/71 102 03/06 1545 99.3 71 19 162/58 89 98 03/06 1530 152/72 103 03/06 1530 99.5 71 16 162/58 88 99 03/06 1515 146/69 100 03/06 1515 99.5 68 18 152/55 84 99 24 hour I O ending at 0700: 03/07 0700 03/06 1900 Intake Total 431.70 2474.00 Output Total 695 805 Balance -263.30 1669.00 Intake, IV 231.70 564.00 Intake, Oral 200 1080 Intake, Oral 480 Supplement Intake, 350 Packed Cells Output, Chest 170 180 Tube Drainage Output, Urine 525 625 Patient 90.9 kg 89.811 kg Weight Weight Standing scale Measurement Method PATIENT WEIGHT: Weight (lb): 200Weight (oz): 6.4Weight (kg): 90.900 MedicationsActive Meds + DC'd Last 24 HrsMethylprednisolone Sodium Succinate (Solu-Medrol 40 MG Vial) 20 MG DAILY IV Metoprolol Tartrate (LOPRESSOR) 12.5 MG Q12HR PO Ipratropium [place] (ATROVENT) 500 MCG RTQ2H PRN PRN INH Amiodarone HCl (CORDARONE) 400 MG Q12HR PO (CKD) Amlodipine Besylate (NORVASC) 5 MG DAILY PO (DC) Cyanocobalamin (Vitamin B-12 500 mcg tab) 500 MCG DAILY PO Ferrous Sulfate (FERROUS SULFATE) 325 MG DAILY PO Metoprolol Tartrate (LOPRESSOR) 25 MG Q12HR PO (DC) Methylprednisolone Sodium Succinate (Solu-Medrol 40 MG Vial) 20 MG Q12H IV (DC) Calcium Carbonate (TUMS CHEW TAB) 1,000 MG Q6H PRN PRN PO Potassium Chloride (POTASSIUM CHLORIDE 20MEQ TAB.ER) 20 MEQ STAT STA PO (DC) Perflutren Protein Type A Microsphe (OPTISON 3ML VIAL) 0 .STK-MED ONE IV (DC) Bisacodyl (DULCOLAX) 10 MG ONCE PRN RECTAL Magnesium Hydroxide (MILK OF MAGNESIA) 30 ML ONCE PRN PO (DC) Amiodarone HCl (CORDARONE) 400 MG TID PO (DC) Atorvastatin Calcium (LIPITOR) 40 MG 2100 PO Budesonide (PULMICORT RESPULES) 0.5 MG RTBID INH Formoterol Fumarate (PERFOROMIST) 20 MCG RTBID NEB Methylprednisolone Sodium Succinate (Solu-Medrol 40 MG Vial) 40 MG Q12H IV (DC) Sterile Water (WATER FOR INJECTION) 1 ML ASDIR PRN IV Tamsulosin HCl (Flomax 0.4 mg) 0.8 MG PC BK PO Clopidogrel Bisulfate (Plavix) 75 MG DAILY PO Mupirocin (BACTROBAN 2% 22 GM OINTMENT) 1 APPLIC BID NASAL Polyethylene Glycol (MIRALAX) 17 GM DAILY PO Amiodarone HCl (AMIODARONE HCL) 450 MG ASDIR IV (CKD) Dextrose/Water (D5%W NON-DEHP) 250 MLPantoprazole (PROTONIX) 40 MG DAILY@0600 PO Aspirin (ASPIRIN) 81 MG DAILY PO Docusate Sodium (COLACE) 100 MG BID PO Metoprolol Tartrate (LOPRESSOR) 12.5 MG Q12HR PO (DC) Sennosides (Senna Lax 8.6 MG TABLET) 17.2 MG BEDTIME PO Ipratropium [place] (ATROVENT) 500 MCG RTQ4H INH Acetaminophen (TYLENOL) 650 MG Q4H PRN PRN PO Acetaminophen (TYLENOL) 650 MG Q4H PRN PRN RECTAL Calcium Chloride (CALCIUM CHLORIDE) 1 GM ASDIR PRN IV Dextrose/Water (DEXTROSE 10% IN WATER) 125 ML ASDIR PRN IV (CKD) Dextrose/Water (DEXTROSE 10% IN WATER) 250 ML ASDIR PRN IV (CKD) Epinephrine (ADRENALIN CHLORIDE) 4 MG ASDIR IV Dextrose/Water (DEXTROSE 5% WATER) 246 MLGlucagon (GLUCAGON) 1 MG ASDIR PRN IM Insulin Human Regular (HumuLIN R) 100 UNIT ASDIR IV (CKD) Sodium Chloride (SODIUM CHLORIDE 0.9%) 99 MLMagnesium Sulfate (MAGNESIUM SULFATE 4GM/SWFI 100ML) 100 ML ASDIR PRN IV Magnesium Sulfate (MAGNESIUM SULFATE 2GM/SWFI 50ML) 50 ML ASDIR PRN IV Magnesium Sulfate/Dextrose (MAGNESIUM SULFATE 1GM/D5W 100ML) 100 ML ASDIR PRN IV Nitroglycerin/Dextrose (NITROGLYCERIN 50,000MCG/D5W 250ML) 250 ML ASDIR IV Norepinephrine Bitartrate (NOREPINEPHRINE 8 MG/NS 250 ML) 250 ML TITRATE IV Ondansetron HCl (ZOFRAN) 4 MG Q6H PRN PRN IV Potassium Chloride (KCL 20MEQ/SWFI 100ML) 100 ML ASDIR PRN IV Sodium Bicarbonate (SODIUM BICARBONATE) 50 MEQ ASDIR PRN IV Physical ExamGeneral appearance: alert, awake, orientedHead/eyes: atraumatic, normocephalic, PERRLANeck: no JVD, no lymphadenopathyCardiovascular: normal heart sounds, regular rate and rhythm, no rubRespiratory: decreased breath sounds, aerating well, no distressAbdomen: non-tender, normal bowel sounds, soft, no reboundGenitourinary: urinary catheter, urineExtremities: no edema, no gangreneNeuro/SALES ASSISTANT: alert, normal speech ResultsFindings/Data:Laboratory Tests 03/07 03/06 03/06 0236 2107 1607 Blood Gas Puncture Site Art Line Art Line Art Line O2 Saturation (90 - 100 %) 94.9 94.5 97.8 ABG pH (7.35 - 7.45) 7.361 7.385 7.331 L ABG pCO2 (35.0 - 45 mmHg) 49.1 H 44.2 51.3 *H ABG pO2 (80 - 100.0 mmHg) 79.1 L 75.5 L 112.0 H ABG HCO3 (22.0 - 26.0 MMOL/L) 27.8 H 26.4 H 27.0 H ABG Total CO2 29.3 27.7 28.5 ABG Base Excess (-4.0 - 4.0 MMOL/L) 2.3 1.4 1.2 ABG Hematocrit (37.5 - 50.7 %) 32 L 31 L 29 L ABG Hemoglobin (12.5 - 16.9 G/DL) 10.7 L 10.5 L 10.0 L Shayla Test Positive Positive Sodium (134 - 147 mmol/L) 146 145 144 Potassium (3.4 - 5.0 mmol/L) 4.4 4.6 3.8 Chloride (100 - 108 mmol/L) 109 H 108 109 H Ionized Calcium (1.12 - 1.32 MMOL/L) 1.21 1.18 1.18 Lactic Acid (0.9 - 1.7 mmol/l) 0.4 L Temperature (F) 99 99.3 O2 Delivery Device HFNC Cannula Cannula Laboratory Tests 03/07 03/07 03/07 03/07 03/07 1156 0856 0809 0236 0231Chemistry Sodium (134 - 147 mEq/L) 144 144 Potassium (3.4 - 5.0 mEq/L) 4.2 4.3 Chloride (100 - 108 mEq/L) 108 110 H Carbon Dioxide (21 - 33 mEq/l) 25 28 Anion Gap (0 - 20) 15 11 BUN (7 - 18 mg/dL) 66 H 56 H Creatinine (0.6 - 1.3 mg/dL) 2.8 H 2.9 H POC Creatinine (0.8 - 1.3 mg/dL) 3.3 H Glomerular Filtr Rate (70 - 80) 23.4 L 22.4 L Glucose (70 - 110 mg/dL) 214 H 157 H POC Glucose (70 - 110 MG/DL) 202 H 183 H POC Glucose (mg/dL) (70 - 110 MG/DL) 128 H Calcium (8.0 - 10.5 mg/dL) 8.3 8.6 Magnesium (1.80 - 2.40 mg/dL) 2.71 H Total Bilirubin (0.0 - 1.0 mg/dL) 0.40 Direct Bilirubin (0.0 - 0.30 MG/DL) 0.20 Indirect Bilirubin (MG/DL) 0.20 AST (15 - 37 IUnit/L) 26 ALT (30 - 65 IUnit/L) 17 L Total Alk Phosphatase (20 - 125 41IUnit/L) Total Protein (6.4 - 8.2 g/dL) 5.7 L Albumin (3.4 - 5.0 g/dL) 3.40 03/07 03/06 03/06 03/06 03/06 0114 2305 7 1954 1607Chemistry Sodium (134 - 147 mEq/L) 145 Potassium (3.4 - 5.0 mEq/L) 4.4 Chloride (100 - 108 mEq/L) 110 H Carbon Dioxide (21 - 33 mEq/l) 27 Anion Gap (0 - 20) 13 BUN (7 - 18 mg/dL) 58 H Creatinine (0.6 - 1.3 mg/dL) 3.0 H POC Creatinine (0.8 - 1.3 mg/dL) 3.8 H 3.3 H Glomerular Filtr Rate (70 - 80) 21.5 L Glucose (70 - 110 mg/dL) 231 H POC Glucose (70 - 110 MG/DL) 134 H 181 H POC Glucose (mg/dL) (70 - 110 MG/DL) 213 H 131 H Calcium (8.0 - 10.5 mg/dL) 8.4 Magnesium (1.80 - 2.40 mg/dL) 2.53 H Laboratory Tests 03/07 03/06 0231 1606 Hematology WBC (4.5 - 11.0 x10 3/uL) 7.8 7.7 RBC (4.00 - 5.60 x10 6/uL) 3.42 L 3.30 L Hgb (12.5 - 16.9 g/dL) 10.1 L 10.1 L Hct (37.5 - 50.7 %) 31.4 L 30.3 L MCV (81.0 - 99.0 fL) 91.8 91.8 MCH (27.0 - 33.0 pg) 29.5 30.6 MCHC (33.0 - 37.0 g/dL) 32.2 L 33.3 RDW (11.5 - 14.5 %) 17.1 H 17.2 H Plt Count (150 - 400 x10 3/uL) 103 L 97 L MPV (7.0 - 9.0 fL) 10.8 H 11.1 H Neut % (Auto) (56.0 - 77.0 %) 89.8 H 91.1 H Lymph % (Auto) (14.0 - 32.0 %) 2.7 L 2.7 L [place] % (Auto) (4.8 - 9.0 %) 6.7 5.2 Eos % (Auto) (0.3 - 3.7 %) 0.0 L 0.0 L Baso % (Auto) (0.0 - 2.0 %) 0.0 0.1 Neut # (Auto) (2.0 - 7.6 x10 3/uL) 6.96 7.00 Lymph # (Auto) (1.0 - 3.8 x10 3/uL) 0.21 L 0.21 L [place] # (Auto) (0.1 - 0.8 x10 3/uL) 0.52 0.40 Eos # (Auto) (0.0 - 0.2 x10 3/uL) 0.00 0.00 Baso # (Auto) (0.0 - 0.2 x10 3/uL) 0.00 0.01 Abs Immat Gran (auto) (0.00 - 0.03 x10 3/uL) 0.06 H 0.07 H Add Manual Diff NO NO Immature Gran % (0.0 - 2.0 %) 0.8 0.9 Nucleated RBC % (0 - 0 %) 0.0 0.0 Nucleated RBCs # (Man) (0.0 - 0.1 x10 3/uL) 0.00 0.00 Radiology data:Recent Impressions:RADIOLOGY - XR CHEST 1 V 03/07 9211 Report Impression - Status: SIGNED Entered: 03/07/2023 1462 IMPRESSION: 1. Increased interstitial opacities compatible with edema. 2. Increased right pleural effusion with associated basilar atelectasis versus airspace disease. 3. Stable small volume left pneumothorax with thoracostomy tube in place. Stable left basilar pleuroparenchymal changes. Impression By: Wilbert Brown M.D. Diagnosis, Assessment PlanFree Text A P:1. JERAMY likely ATN secondary to IV contrast. Urine output improving. Sp NS at 75 cc/h for 1 L. Monitor respiratory status closely. Avoid nephrotoxic medications.creatinine improving at 3.1> 2.8 today. May give Lasix 40 mg IV tonight or in the morning if urine output does not pickle pumper or respiratory statusworsens 2. Acute hypercapnic respiratory failure with COPD on BiPAP. Pulmonary following 3. Coronary disease status post CABG postop care per CT surgery 4. Left carotid artery stenosis5. Anemia PRBC as neededDiscussed with ICC 1. Left ventricle: The cavity size is normal. Wall thickness is normal. Systolic function is mildly reduced. The estimated ejection fraction is 40-44%. Doppler parameters are consistent with abnormal left ventricular relaxation (grade 1 diastolic dysfunction).2. Regional wall motion abnormality: Severe hypokinesis of the apical anterior, apical septal, apical lateral, and apical myocardium; hypokinesis of the basal-mid anteroseptal myocardium.3. Right ventricle: Systolic pressure is moderately increased.4. Mitral valve: There is mild regurgitation.5. Tricuspid valve: Estimated right ventricular systolic pressure is 46 mmHg. There is moderate regurgitation.6. Pericardium, extracardiac: A trivial pericardial effusion is identified.7. Inferior vena cava: The vessel is dilated. The respirophasic diameter changes are in the normal range (= 50%). Inferior vena cava diameter is 2.1 cm. on 03/04/23 at 1717 at 7777 RPT #:[id number] OF REPORTPRProgress [id number]:02:00G.[id number] able for patient [id number]:49:47 [facility] 2023-03-07 14:15:00 [id number] /[id number] R5aEcjbfBtxvzHrn0XKLRWz4mNX1985-47-69O32:15:00 [facility] ([facility])Acute Rehab ConsultREPORT#:[id number] REPORT STATUS: SignedDATE:03/07/23 TIME: 5 PATIENT: TEVIN NYE UNIT #: [id number]#: [id number] [address] [birth year] AGE: 72 SEX: M ATTEND: Luci Villeda [facility] AUTHOR: Nicolasa Galeano PA-C * ALL edits or amendments must be made on the electronic/computer document * History of Present Illness HPIReason for consult: evaluation of Rehab needsPCP:PCP: No Primary or Family Physician Requesting clinician: DR Saraviaologic diagnosis:CIM HPI:Tevin Nye is a 72-year-old gentleman with past medical history significant for hypertension, diabetes, dyslipidemia, former smoker quit in 2008, BPH, prostate cancer status postradiation severe COPD, not home oxygen dependent, severe left carotid stenosis, who was admitted to the medical floor with diagnosis of NSTEMI. He was found to have severe multivessel coronary disease on cardiac catheterization. Patient also had shortness of breath and wheezing. He was seen by pulmonology and started on steroid therapy along with nebulizer treatments. Patient underwent elective coronary artery bypass grafting surgery with isolation of left atrial appendage. POst op noted to have fixed dilated pupils after receiving narcan. CODE [place] called. EEG with diffuse slowing without epileptiform activity. CTH was grossly unremarkable with no ICH, early ischemic changes and there were no hyperdense vessels noted. Repeat echo with EF60-64% . He was extubated and now weaned to NC. His Cr climed to max of 3.1. [place] to be ATN secondary to contrast. Nephrology following. On NC 2 L during theday and BiPAP at night. ABG and CXR reviewed with intersistial edema and small right pleural effusion. Pulmonary recommending continue duonebs and wean steroids to daily. Currently in NSR and transitioned to PO 12.5 mg metoprolol and amidoarone 400 BID. Functional StatusPT evaluation: SUPERVISION: 1. One on one supervision with cueing and assistance provided to ensure proper performance of all activities. Yes Precautions: STERNAL FALL CARDIAC Safety addressed through use of: Verbal Cues Tactile Cues Gait Device WC HANDLE WC FOLLOW Weightbearing: No Restriction Ambulation Distance: 200 FT Progression: Forward Assistance Level: Minimal Assistance Gait Deviations: SHORT STEP [facility] Mobility: No Document Pain/Education: No Advanced Progression: No Effects of Treatment: Tolerance increased Cardio tolerance improved Post [place] Precautions: In Chair Call Light in Reach Nursing Notified Review Plan of Care: Yes PT charges: Gait Training [id number] Gait Cmt: AMBULATED FAIR USING WC HANDLES FOR BALANCE. Pt ON 3L O2VIA NC BUT FELT SOB W SPO2 95+. Pt EDUCATED ON PLB AND RELAXATION. WILL PROGRESS TOLERATED. Pt WILL BENEFIT FROM IRF CONSULT. If this is the patient's last treatment, this entry serves as the discharge summary: Y Start Time: 909 Stop Time: 919 Treatment Time: (minutes) 0:10 Completed by: Giuliano Mcwilliams OT evaluation:Therapist recommended discharge needs: PostAcute Rehabilitation Potential: Fair to Good Recommendations: PT Consult Modified [place] Score: No MR Screening Performed: Pre-Morbid Screening Document Pain/Education: Yes Post [place] Precautions: In Bed, rails Up Call Light in Reach Nursing Notified O2 on Post [place] Comments: ALL NEEDS IN REACH Evaluation Type: Low Complexity Reason for Eval Complexity: Impaired balance Document OT charges: EVAL OT HIGH COMP [id number] Comments: PT DECREASE STRENGTH, ENDURANCE, STANDING BALANCE AND ADL SKILLS. PT WILL BENEFIT FROM SKILLED OT TO INCREASE STRENGTH, ENDURANCE, STANDING BALANCE FOR ADL. CO-TREAT W/P.T., PT AMBULATED 200FT HOLDING TRANSPORT CHAIR HANDLE W/ MIN A. If this is the patient's last treatment, this entry serves as the discharge summary: Y Start Time: 920 Stop Time: 944 Eval Time (minutes): 0:24 Completed by: Flakita Wolfe UPPER EXTREMETY FUNCTION UPPER BODY FUNCTION Items determined to be outside Functional Limits are as follows: RANGE OF MOTION (Degrees): Active unless otherwise noted RIGHT UPPER EXTREMITY ROM: Yes RUE ROM Measurements and Cmts: WFL MODIFIED W/ STERNAL PREC LEFT UPPER EXTREMITY ROM: Yes LUE ROM Measurements and Cmts: WFL MODIFIED W/ STERNAL PREC MANUAL MUSCLE TEST RIGHT UPPER EXTREMITY: No LEFT UPPER EXTREMITY: No Fine Motor Coordination: Normal Gross Motor Coordination: Normal Right Hand Coffee Attendant Strength: Fair Left Hand Coffee Attendant Strength: Fair Comments: MMT NOT TEST D/T STERNALPREC FUNCTIONAL MOBILITY FUNCTIONAL MOBILITY Items determined to be outside Functional Limits are as follows: Sit to Supine: Minimal Assistance Sit to Stand: Minimal Assistance Functional Activity Tolerance TRANSFERS Chair/Wheelchair: Minimal Assistance BALANCE Static Sitting: Fair Dynamic Sitting: Fair Static Standing: Fair Dynamic Standing: Fair ACTIVITIES OF DAILY LIVING Activity: How much help from another person does the patient currently need: Putting on and taking off regular lower body clothing? 1 Toileting which includes using toilet, bedpan, or urinal? 1 Putting on and taking off regular upper body clothing? 3 Taking care of personal grooming, such as brushing teeth? 3 Eating meals? 3 [facility] Activity Score: 11 ACTIVITIES OF DAILY LIVING Items determined to be outside Functional Limits areas follows: Upper Body Dressing: Minimal Assistance Lower Body Dressing: Dependent Hygiene/Grooming: Supervision or Set-up Feeding: Supervision or Set-up Toileting: Dependent HistoryPast medical history:Reports: COPD, Diabetes mellitus, Hypertension, BPH, Dyslipidemia. Past surgical history:Reports: Knee procedure, Lung surgery (collapsed lung). Additional family history:UTOAlcohol use: Denies EtOH useDrug use: Denies recreational drugsSmoking status for patients 13 years old or older: Former SmokerPacks per day: 1Years smoked: 20Pack years: 20Additional social history:LIVES AT HOME ALONE. HIS YOUNGER BROTHER LIVES ACROSS THE STREET. [place]. NO STAIRS. HE WAS IND PLOF. NO DME USED . OCCASSIONAL CANE USED. NO OXYGEN Medications:Home Medications:Medication Dose/Rte/Freq Days Qty Entered Last Max Daily Dose Reviewed OXYBUTYNIN (DITROPAN) 5 MG PO BID 03/03/23 03/03/23Strength: 5 MG TAB 1937 1948 TAMSULOSIN ER (FLOMAX) 0.8 MG PO DAILY 03/03/23 03/03/23Strength: 0.4 MG CAP.SR.24H 1938 1948 FLUoxetine (PROzac) 10 MG PO QAM 03/03/23 03/03/23Strength: 10 MG CAP 1938 1948 LATANOPROST 1 DROP EACH EYE 03/03/23 03/03/23 (XALATAN 0.005% OPHTH BEDTIME 1939 1948 SOLCarmelina)Strength: 0.005 % OPHTH.SOLN LISINOPRIL (ZESTRIL) 20 MG PO DAILY 03/03/23 03/03/23Strength: 20 MG TAB 1939 1948 METOPROLOL TARTRATE 25 MG PO BID 03/03/23 03/03/23 (LOPRESSOR) 1940 1948Strength: 50 MG TAB INSULIN LISPRO 6 03/03/23 03/03/23 (HumaLOG KWIKPEN (3mL)) 1942 1948Strength: 100 UNIT/MLINSULN.PEN INSULIN LISPRO (HumaLOG) 50 03/03/23 03/03/23Strength: 100 UNIT/ML VIAL 1943 1948 CALCIUM CARBONATE/VIT 2 TAB PO DAILY 03/03/23 03/03/23 D3 1944 1948 (CALCIUM CARB/VIT D3 500 MG/200 UNITS)Strength: 500 MG CALCIUM-5MCG (200 UNIT) TAB CYANOCOBALAMIN 100 MCG PO DAILY 03/03/23 03/03/23 (VITAMIN B-12) 1944 1948Strength: 100 MCG TAB HYDROCHLOROTHIAZIDE 25 MG PO DAILY 03/03/23 03/03/23 (HYDRODIURIL) 1945 1948Strength: 25 MG TAB APIXABAN (ELIQUIS) 5 MG PO BID 03/03/23 03/03/23Strength: 5 MG TAB 1946 1948 ASPIRIN 81 MG PO DAILY 03/03/23 03/03/23Strength: 81 MG TAB.CHEW 1946 1948 ATORVASTATIN (LIPITOR) 5 MG PO DAILY 03/03/23 03/03/23Strength: 10 MG TAB 1947 1948 Current Hospital Medications:Autonomic Drugs Sig/Yas Start time Last Medication Dose Route Stop Time Status Admin Ipratropium [place] 500 MCG RTQ2H PRN PRN 03/07 1655 AC (ATROVENT) INH 04/06 1654 Formoterol Fumarate 20 MCG RTBID 03/05 1315 AC 03/07 (PERFOROMIST) NEB 04/04 1314 0744 Tamsulosin HCl 0.8 MG PC BK 03/05 1115 AC 03/07 (Flomax 0.4 mg) PO 04/04 1114 0749 Ipratropium [place] 500 MCG RTQ4H 03/04 2000 AC 03/07 (ATROVENT) INH 03/07 1655 1045 Epinephrine 4 MG ASDIR 03/04 1700 AC (ADRENALIN CHLORIDE) IV 04/03 1659 Dextrose/Water 246 ML (DEXTROSE 5% WATER) Norepinephrine 250 ML TITRATE 03/04 1700 AC Bitartrate IV 04/03 165 (NOREPINEPHRINE 8 MG/ NS 250 ML) Blood Formation,Coagulation Sig/Yas Start time Last Medication Dose Route Stop Time Status Admin Ferrous Sulfate 325 MG DAILY 03/07 09 AC (FERROUS SULFATE) PO 04/06 0859 Clopidogrel Bisulfate 75 MG DAILY 03/05 0900 AC 03/07 (Plavix) PO 04/04 0859 0746 Cardiovascular Drugs Sig/Yas Start time Last Medication Dose Route Stop Time Status Admin Metoprolol Tartrate 12.5 MG Q12HR 03/07 2100 AC (LOPRESSOR) PO 04/06 2059 Amiodarone HCl 400 MG Q12HR 03/07 0900 CKD 03/07 (CORDARONE) PO 04/06 0859 0750 Amlodipine Besylate 5 MG DAILY 03/07 09 DC 03/07 (NORVASC) PO 04/06 0859 0748 Metoprolol Tartrate 25 MG Q12HR 03/07 0900 DC 03/07 (LOPRESSOR) PO 04/06 0859 0746 Amiodarone HCl 400 MG TID 03/06 09 DC 03/06 (CORDARONE) PO 04/05 0859 2046 Atorvastatin Calcium 40 MG 2100 03/05 2100 AC 03/06 (LIPITOR) PO 04/04 2059 2047 Amiodarone HCl 450 MG ASDIR 03/05 0745 CKD 03/07 (AMIODARONE HCL) IV 04/04 0744 1019 Dextrose/Water 250 ML (D5%W NON-DEHP) Metoprolol Tartrate 12.5 MG Q12HR 03/04 2100 DC (LOPRESSOR) PO 04/03 205 Nitroglycerin/ 250 ML ASDIR 03/04 1700 AC Dextrose IV 04/03 165 (NITROGLYCERIN 50,000MCG/D5W 250ML) Central Nervous System Agents Sig/Yas Start time Last Medication Dose Route Stop Time Status Admin Aspirin 81 MG DAILY 03/04 2255 AC 03/07 (ASPIRIN) PO 04/03 2254 0748 Acetaminophen 650 MG Q4H PRN PRN 03/04 1700 AC 03/07 (TYLENOL) PO 04/03 1659 0746 Acetaminophen 650 MG Q4H PRN PRN 03/04 1700 AC (TYLENOL) RECTAL 04/03 1659 Magnesium Sulfate 100 ML ASDIR PRN 03/04 1700 AC (MAGNESIUM SULFATE IV 04/03 1659 4GM/SWFI 100ML) Magnesium Sulfate 50 ML ASDIR PRN 03/04 1700 AC (MAGNESIUM SULFATE IV 04/03 1659 2GM/SWFI 50ML) Magnesium Sulfate/ 100 ML ASDIR PRN 03/04 1700 AC Dextrose IV 04/03 165 (MAGNESIUM SULFATE 1GM/D5W 100ML) Electrolytic, Caloric, And Agata Sig/Yas Start time Last Medication Dose Route Stop Time Status Admin Calcium Carbonate 1,000 MG Q6H PRN PRN 03/06 191 AC 03/06 (TUMS CHEW TAB) PO 04/05 1914 204 Potassium Chloride 20 MEQ STAT STA 03/06 1802 DC 03/06 (POTASSIUM CHLORIDE PO 03/06 1803 1818 20MEQ TAB.ER) Calcium Chloride 1 GM ASDIR PRN 03/04 1700 AC (CALCIUM CHLORIDE) IV 04/03 1659 Dextrose/Water 125 ML ASDIR PRN 03/04 1700 CKD (DEXTROSE 10% IN IV 04/03 165 WATER) Dextrose/Water 250 ML ASDIR PRN 03/04 1700 CKD (DEXTROSE 10% IN IV 04/03 165 WATER) Potassium Chloride 100 ML ASDIR PRN 03/04 1700 AC 03/04 (KCL 20MEQ/SWFI IV 04/03 1659 1900 100ML) Sodium Bicarbonate 50 MEQ ASDIR PRN 03/04 1700 AC 03/04 (SODIUM BICARBONATE) IV 04/03 165 2130 Eye, Ear, Nose And Throat (Een Sig/Yas Start time Last Medication Dose Route Stop Time Status Admin Budesonide 0.5 MG RTBID 03/05 1315 AC 03/07 (PULMICORT RESPULES) INH 04/04 1314 0744 Gastrointestinal Drugs Sig/Yas Start time Last Medication Dose Route Stop Time Status Admin Bisacodyl 10 MG ONCE PRN 03/06 1200 AC (DULCOLAX) RECTAL 04/05 1159 Magnesium Hydroxide 30 ML ONCE PRN 03/06 1200 DC 03/07 (MILK OF MAGNESIA) PO 0516 Polyethylene Glycol 17 GM DAILY 03/05 0900 AC 03/07 (MIRALAX) PO 04/04 0859 0748 Pantoprazole 40 MG DAILY@0600 03/05 0600 AC 03/07 (PROTONIX) PO 04/04 0559 0516 Docusate Sodium 100 MG BID 03/04 2100 AC 03/07 (COLACE) PO 04/0346 Sennosides 17.2 MG BEDTIME 03/04 2100 AC 03/06 (Senna Lax 8.6 MG PO 04/03 TABLET) Ondansetron HCl 4 MG Q6H PRN PRN 03/04 1700 AC 03/05 (ZOFRAN) IV 04/03 1659 1342 Hormones And Synthetic Substit Sig/Yas Start time Last Medication Dose Route Stop Time Status Admin Methylprednisolone 20 MG DAILY 03/08 900 AC Sodium Succinate IV 04/07 0859 (Solu-Medrol 40 MG Vial) Methylprednisolone 20 MG Q12H 03/07 0115 DC 03/07 Sodium Succinate IV 04/06 0114 0022 (Solu-Medrol 40 MG Vial) Methylprednisolone 40 MG Q12H 03/05 1315 DC 03/06 Sodium Succinate IV 04/04 1314 1214 (Solu-Medrol 40 MG Vial) Glucagon 1 MG ASDIR PRN 03/04 1700 AC (GLUCAGON) IM 04/03 1659 Insulin Human Regular 100 UNIT ASDIR 03/04 1700 CKD 03/06 (HumuLIN R) IV 04/03 1659 1902 Sodium Chloride 99 ML (SODIUM CHLORIDE 0.9%) Miscellaneous Therapeutic Agen Sig/Yas Start time Last Medication Dose Route Stop Time Status Admin Perflutren Protein 0 .STK-MED ONE 03/06 1525 DC Type A Microsphe IV (OPTISON 3ML VIAL) Pharmaceutical Aids Sig/Yas Start time Last Medication Dose Route Stop Time Status Admin Sterile Water 1 ML ASDIR PRN 03/05 1315 AC 03/07 (WATER FOR INJECTION) IV 04/04 1314 0022 Skin And Mucous Membrane Agent Sig/Yas Start time Last Medication Dose Route Stop Time Status Admin Mupirocin 1 APPLIC BID 03/05 0900 AC 03/07 (BACTROBAN 2% 22 GM NASAL 03/09 2101 0750 OINTMENT) Vitamins Sig/Yas Start time Last Medication Dose Route Stop Time Status Admin Cyanocobalamin 500 MCG DAILY 03/07 09 AC (Vitamin B-12 500 PO 04/06 0859 mcg tab) Allergies:Coded Allergies:Penicillins (USE COMMENT BUTTON 03/03/23) PT STATES THAT HE WAS JUST TOLD THAT HE'S ALLERGIC TO PENICILLIN AND ITS NOT GONNA WORK FOR HIM Review of Symptoms ROSROS comments:14 POINT ROS REVIEWED AND NEGATIVE EXCEPT STATED ABOVE. STATES SOB, FATIGUE WITHGAIT. NO CP, ABD PAIN. +BM. Objective Physical ExamVS:Last Documented: Result Date Time B/P 146/52 03/07 1145 B/P Mean 80 03/07 1145 Pulse Ox 97 03/07 1145 Temp 99.0 03/07 1145 Pulse 75 03/07 1145 Resp 28 03/07 1145 O2 Delivery High flow nasal cannula 03/07 1045 O2 Flow Rate 4 03/07 1045 FiO2 40 03/07 0125 PATIENT WEIGHT: Weight (lb): 200Weight (oz): 6.4Weight (kg): 90.900 General appearance: alert, awakeHEENT: anicteric, mucosal membranes moist, sclera clearNeck: supple, no JVDCardiovascular: regular rate rhythm, S1/H4Uonkvrpdkqv: aerating well, clear bilaterallyAbdomen: bowel sounds present, non-distended, soft, non-tenderSkin: incision (C/D/I ), dry, intact, no rashMusculoskeletal - general: Musculoskeletal - general: swelling (ble), joints normal, normal muscle mass,range of motion normal, strength testing normal, no atrophyNeuro/SALES ASSISTANT: alert, oriented X 3, normal speech, no motor deficits, no sensory deficits ResultsFindings/Data:Laboratory Tests: 03/07 03/07 03/07 03/07 1156 0856 0809 0236 Blood Gas Puncture Site Art Line O2 Saturation (90 - 100 %) 94.9 ABG pH (7.35 - 7.45) 7.361 ABG pCO2 (35.0 - 45 mmHg) 49.1 H ABG pO2 (80 - 100.0 mmHg) 79.1 L ABG HCO3 (22.0 - 26.0 MMOL/L) 27.8 H ABG Total CO2 29.3 ABG Base Excess (-4.0 - 4.0 MMOL/L) 2.3 ABG Hematocrit (37.5 - 50.7 %) 32 L ABG Hemoglobin (12.5 - 16.9 G/DL) 10.7 L Shayla Test Positive Sodium (134 - 147 mmol/L) 146 Potassium (3.4 - 5.0 mmol/L) 4.4 Chloride (100 - 108 mmol/L) 109 H Ionized Calcium (1.12 - 1.32 MMOL/L) 1.21 O2 Delivery Device HFNC Chemistry Sodium (134 - 147 mEq/L) 144 Potassium (3.4 - 5.0 mEq/L) 4.2 Chloride (100 - 108 mEq/L) 108 Carbon Dioxide (21 - 33 mEq/l) 25 Anion Gap (0 - 20) 15 BUN (7 - 18 mg/dL) 66 H Creatinine (0.6 - 1.3 mg/dL) 2.8 H POC Creatinine (0.8 - 1.3 mg/dL) 3.3 H Glomerular Filtr Rate (70 - 80) 23.4 L Glucose (70 - 110 mg/dL) 214 H POC Glucose (70 - 110 MG/DL) 202 H 183 H POC Glucose (mg/dL) (70 - 110 MG/DL) 128 H Calcium (8.0 - 10.5 mg/dL) 8.3 03/07 03/07 03/06 03/06 0231 0114 2305 2107Blood Gas Puncture Site Art Line O2 Saturation (90 - 100 %) 94.5 ABG pH (7.35 - 7.45) 7.385 ABG pCO2 (35.0 - 45 mmHg) 44.2 ABG pO2 (80 - 100.0 mmHg) 75.5 L ABG HCO3 (22.0 - 26.0 MMOL/L) 26.4 H ABG Total CO2 27.7 ABG Base Excess (-4.0 - 4.0 MMOL/L) 1.4 ABG Hematocrit (37.5 - 50.7 %) 31 L ABG Hemoglobin (12.5 - 16.9 G/DL) 10.5 L Shayla Test Positive Sodium (134 - 147 mmol/L) 145 Potassium (3.4 - 5.0 mmol/L) 4.6 Chloride (100 - 108 mmol/L) 108 Ionized Calcium (1.12 - 1.32 MMOL/L) 1.18 Temperature (F) 99 O2 Delivery Device CannulaChemistry Sodium (134 - 147 mEq/L) 144 Potassium (3.4 - 5.0 mEq/L) 4.3 Chloride (100 - 108 mEq/L) 110 H Carbon Dioxide (21 - 33 mEq/l) 28 Anion Gap (0 - 20) 11 BUN (7 - 18 mg/dL) 56 H Creatinine (0.6 - 1.3 mg/dL) 2.9 H POC Creatinine (0.8 - 1.3 mg/dL) 3.8 H Glomerular Filtr Rate (70 - 80) 22.4 L Glucose (70 - 110 mg/dL) 157 H POC Glucose (70 - 110 MG/DL) 134 H 181 H POC Glucose (mg/dL) (70 - 110 MG/DL) 213 H Calcium (8.0 - 10.5 mg/dL) 8.6 Magnesium (1.80 - 2.40 mg/dL) 2.71 H Total Bilirubin (0.0 - 1.0 mg/dL) 0.40 Direct Bilirubin (0.0 - 0.30 MG/DL) 0.20 Indirect Bilirubin (MG/DL) 0.20 AST (15 - 37 IUnit/L) 26 ALT (30 - 65 IUnit/L) 17 L Total Alk Phosphatase (20 - 125 IUnit/L) 41 Total Protein (6.4 - 8.2 g/dL) 5.7 L Albumin (3.4 - 5.0 g/dL) 3.40Hematology WBC (4.5 - 11.0 x10 3/uL) 7.8 RBC (4.00 - 5.60 x10 6/uL) 3.42 L Hgb (12.5 - 16.9 g/dL) 10.1 L Hct (37.5 - 50.7 %) 31.4 L MCV (81.0 - 99.0 fL) 91.8 MCH (27.0 - 33.0 pg) 29.5 MCHC (33.0 - 37.0 g/dL) 32.2 L RDW (11.5 - 14.5 %) 17.1 H Plt Count (150 - 400 x10 3/uL) 103 L MPV (7.0 - 9.0 fL) 10.8 H Neut % (Auto) (56.0 - 77.0 %) 89.8 H Lymph % (Auto) (14.0 - 32.0 %) 2.7 L [place] % (Auto) (4.8 - 9.0 %) 6.7 Eos % (Auto) (0.3 - 3.7 %) 0.0 L Baso % (Auto) (0.0 - 2.0 %) 0.0 Neut # (Auto) (2.0 - 7.6 x10 3/uL) 6.96 Lymph # (Auto) (1.0 - 3.8 x10 3/uL) 0.21 L [place] # (Auto) (0.1 - 0.8 x10 3/uL) 0.52 Eos # (Auto) (0.0 - 0.2 x10 3/uL) 0.00 Baso # (Auto) (0.0 - 0.2 x10 3/uL) 0.00 Abs Immat Gran (auto) (0.00 - 0.03 0.06 Hx10 3/uL) Add Manual Diff NO Immature Gran % (0.0 - 2.0 %) 0.8 Nucleated RBC % (0 - 0 %) 0.0 Nucleated RBCs # (Man) (0.0 - 0.1 x10 3/uL) 0.00 03/06 1607 1606 Blood Gas Puncture Site Art Line O2 Saturation (90 - 100 %) 97.8 ABG pH (7.35 - 7.45) 7.331 L ABG pCO2 (35.0 - 45 mmHg) 51.3 *H ABG pO2 (80 - 100.0 mmHg) 112.0 H ABG HCO3 (22.0 - 26.0 MMOL/L) 27.0 H ABG Total CO2 28.5 ABG Base Excess (-4.0 - 4.0 MMOL/L) 1.2 ABG Hematocrit (37.5 - 50.7 %) 29 L ABG Hemoglobin (12.5 - 16.9 G/DL) 10.0 L Sodium (134 - 147 mmol/L) 144 Potassium (3.4 - 5.0 mmol/L) 3.8 Chloride (100 - 108 mmol/L) 109 H Ionized Calcium (1.12 - 1.32 MMOL/L) 1.18 Lactic Acid (0.9 - 1.7 mmol/l) 0.4 L Temperature (F) 99.3 O2 Delivery Device Cannula Chemistry Sodium (134 - 147 mEq/L) 145 Potassium (3.4 - 5.0 mEq/L) 4.4 Chloride (100 - 108 mEq/L) 110 H Carbon Dioxide (21 - 33 mEq/l) 27 Anion Gap (0 - 20) 13 BUN (7 - 18 mg/dL) 58 H Creatinine (0.6 - 1.3 mg/dL) 3.0 H POC Creatinine (0.8 - 1.3 mg/dL) 3.3 H Glomerular Filtr Rate (70 - 80) 21.5 L Glucose (70 - 110 mg/dL) 231 H POC Glucose (mg/dL) (70 - 110 MG/DL) 131 H Calcium (8.0 - 10.5 mg/dL) 8.4 Magnesium (1.80 - 2.40 mg/dL) 2.53 H Hematology WBC (4.5 - 11.0 x10 3/uL) 7.7 RBC (4.00 - 5.60 x10 6/uL) 3.30 L Hgb (12.5 - 16.9 g/dL) 10.1 L Hct (37.5 - 50.7 %) 30.3 L MCV (81.0 - 99.0 fL) 91.8 MCH (27.0 - 33.0 pg) 30.6 MCHC (33.0 - 37.0 g/dL) 33.3 RDW (11.5 - 14.5 %) 17.2 H Plt Count (150 - 400 x10 3/uL) 97 L MPV (7.0 - 9.0 fL) 11.1 H Neut % (Auto) (56.0 - 77.0 %) 91.1 H Lymph % (Auto) (14.0 - 32.0 %) 2.7 L [place] % (Auto) (4.8 - 9.0 %) 5.2 Eos % (Auto) (0.3 - 3.7 %) 0.0 L Baso % (Auto) (0.0 - 2.0 %) 0.1 Neut # (Auto) (2.0 - 7.6 x10 3/uL) 7.00 Lymph # (Auto) (1.0 - 3.8 x10 3/uL) 0.21 L [place] # (Auto) (0.1 - 0.8 x10 3/uL) 0.40 Eos # (Auto) (0.0 - 0.2 x10 3/uL) 0.00 Baso # (Auto) (0.0 - 0.2 x10 3/uL) 0.01 Abs Immat Gran (auto) (0.00 - 0.03 x10 3/uL) 0.07 H Add Manual Diff NO Immature Gran % (0.0 - 2.0 %) 0.9 Nucleated RBC % (0 - 0 %) 0.0 Nucleated RBCs # (Man) (0.0 - 0.1 x10 3/uL) 0.00 Radiology data:Recent Impressions:RADIOLOGY - XR CHEST 1 V 03/07 0511 Report Impression - Status: SIGNED Entered: 03/07/2023 7591 IMPRESSION: 1. Increased interstitial opacities compatible with edema. 2. Increased right pleural effusion with associated basilar atelectasis versus airspace disease. 3. Stable small volume left pneumothorax with thoracostomy tube in place. Stable left basilar pleuroparenchymal changes. Impression By: Wilbert Brown M.D. Diagnosis, Assessment PlanFree Text A P:Pt is a 72 yr old male admitted with NSTEMI, Multivessel CAD, Acute COPD exacerbation/postop respiratory failure, recent pulmonary embolism on Eliquis, Hypertension, History of tobacco use, Obesity, Acute renal failure due to ATN contrast induced, S/P CABG X4 03/04/23. Plan: PT/OT consulted. He is noted to be MOD A with mobility and fatigues eaisily. He lives at home alone and given his multiple medical issues including COPD exacerbation/s/p CABG with AKF he would benefit from IRF for close daily MD FU and aggressive rehab. Monitor volume status and BP. Wean O2 along with Prednisone. Thank you for allowing us to particapte in angela care of the pt. Will continue to follow. at 1759 RPT #:[id number] OF [id number]:15:00G.PDOC2 [id number] for patient [id number]:00:11 HCACL 2023-03-07 13:00:00 [id number]+[id number] rfZu6yfHmPCIYcyU5HCLAv/[id number]:00:00 [facility] ([facility])Pulmonology Progress NoteREPORT#:[id number] REPORT STATUS: SignedDATE:03/07/23 TIME: 1300 PATIENT: TEVIN NYE UNIT #: [id number]#: [id number] [address] AGE: 72 SEX: M ATTEND: Luci Villeda MDADM AUTHOR: Sharmila Alan * ALL edits or amendments must be made on the electronic/computer document * SubjectiveComments:On NC, sitting in chair, feels better ROSAll systems rev neg: except as marked Objective GeneralVS/I O:Last Documented: Result Date Time B/P 146/52 03/07 1145 B/P Mean 80 03/07 1145 Pulse Ox 97 03/07 1145 Temp 37.2 03/07 1145 Pulse 75 03/07 1145 Resp 28 03/07 1145 O2 Delivery Nasal cannula 03/07 0800 O2 Flow Rate 2 03/07 0800 FiO2 40 03/07 0125 24 hour I O ending at 0700: 03/07 0700 03/06 1900 Intake Total 431.70 2474.00 Output Total 695 805 Balance -263.30 1669.00 Intake, IV 231.70 564.00 Intake, Oral 200 1080 Intake, Oral 480 Supplement Intake, 350 Packed Cells Output, Chest 170 180 Tube Drainage Output, Urine 525 625 Patient 90.9 kg 89.811 kg Weight Weight Standing scale Measurement Method PATIENT WEIGHT: Weight (lb): 200Weight (oz): 6.4Weight (kg): 90.900 Medications:Active Meds + DC'd Last 24 HrsMethylprednisolone Sodium Succinate (Solu-Medrol 40 MG Vial) 20 MG DAILY IV Metoprolol Tartrate (LOPRESSOR) 12.5 MG Q12HR PO Ipratropium [place] (ATROVENT) 500 MCG RTQ2H PRN PRN INH Amiodarone HCl (CORDARONE) 400 MG Q12HR PO (CKD) Amlodipine Besylate (NORVASC) 5 MG DAILY PO (DC) Cyanocobalamin (Vitamin B-12 500 mcg tab) 500 MCG DAILY PO Ferrous Sulfate (FERROUS SULFATE) 325 MG DAILY PO Metoprolol Tartrate (LOPRESSOR) 25 MG Q12HR PO (DC) Methylprednisolone Sodium Succinate (Solu-Medrol 40 MG Vial) 20 MG Q12H IV (DC) Calcium Carbonate (TUMS CHEW TAB) 1,000 MG Q6H PRN PRN PO Potassium Chloride (POTASSIUM CHLORIDE 20MEQ TAB.ER) 20 MEQ STAT STA PO (DC) Perflutren Protein Type A Microsphe (OPTISON 3ML VIAL) 0 .STK-MED ONE IV (DC) Bisacodyl (DULCOLAX) 10 MG ONCE PRN RECTAL Magnesium Hydroxide (MILK OF MAGNESIA) 30 ML ONCE PRN PO (DC) Amiodarone HCl (CORDARONE) 400 MG TID PO (DC) Atorvastatin Calcium (LIPITOR) 40 MG 2100 PO Budesonide (PULMICORT RESPULES) 0.5 MG RTBID INH Formoterol Fumarate (PERFOROMIST) 20 MCG RTBID NEB Methylprednisolone Sodium Succinate (Solu-Medrol 40 MG Vial) 40 MG Q12H IV (DC) Sterile Water (WATER FOR INJECTION) 1 ML ASDIR PRN IV Tamsulosin HCl (Flomax 0.4 mg) 0.8 MG PC BK PO Clopidogrel Bisulfate (Plavix) 75 MG DAILY PO Mupirocin (BACTROBAN 2% 22 GM OINTMENT) 1 APPLIC BID NASAL Polyethylene Glycol (MIRALAX) 17 GM DAILY PO Amiodarone HCl (AMIODARONE HCL) 450 MG ASDIR IV (CKD) Dextrose/Water (D5%W NON-DEHP) 250 MLPantoprazole (PROTONIX) 40 MG DAILY@0600 PO Aspirin (ASPIRIN) 81 MG DAILY PO Docusate Sodium (COLACE) 100 MG BID PO Metoprolol Tartrate (LOPRESSOR) 12.5 MG Q12HR PO (DC) Sennosides (Senna Lax 8.6 MG TABLET) 17.2 MG BEDTIME PO Ipratropium [place] (ATROVENT) 500 MCG RTQ4H INH Acetaminophen (TYLENOL) 650 MG Q4H PRN PRN PO Acetaminophen (TYLENOL) 650 MG Q4H PRN PRN RECTAL Calcium Chloride (CALCIUM CHLORIDE) 1 GM ASDIR PRN IV Dextrose/Water (DEXTROSE 10% IN WATER) 125 ML ASDIR PRN IV (CKD) Dextrose/Water (DEXTROSE 10% IN WATER) 250 ML ASDIR PRN IV (CKD) Epinephrine (ADRENALIN CHLORIDE) 4 MG ASDIR IV Dextrose/Water (DEXTROSE 5% WATER) 246 MLGlucagon (GLUCAGON) 1 MG ASDIR PRN IM Insulin Human Regular (HumuLIN R) 100 UNIT ASDIR IV (CKD) Sodium Chloride (SODIUM CHLORIDE 0.9%) 99 MLMagnesium Sulfate (MAGNESIUM SULFATE 4GM/SWFI 100ML) 100 ML ASDIR PRN IV Magnesium Sulfate (MAGNESIUM SULFATE 2GM/SWFI 50ML) 50 ML ASDIR PRN IV Magnesium Sulfate/Dextrose (MAGNESIUM SULFATE 1GM/D5W 100ML) 100 ML ASDIR PRN IV Nitroglycerin/Dextrose (NITROGLYCERIN 50,000MCG/D5W 250ML) 250 ML ASDIR IV Norepinephrine Bitartrate (NOREPINEPHRINE 8 MG/NS 250 ML) 250 ML TITRATE IV Ondansetron HCl (ZOFRAN) 4 MG Q6H PRN PRN IV Potassium Chloride (KCL 20MEQ/SWFI 100ML) 100 ML ASDIR PRN IV Sodium Bicarbonate (SODIUM BICARBONATE) 50 MEQ ASDIR PRN IV Physical ExamGeneral appearance: alert, awake, oriented, no acute distressHead/eyes: atraumatic, normocephalic, PERRLNeck: supple/no meningismus, no bruit/NL carotids, no JVD, no lymphadenopathyCardiovascular: normal S1/S2, no rub, no gallopRespiratory/chest: decreased breath sounds, prolonged exp phase, wheezing, symmetric expansionAbdomen: soft, normal bowel sounds, no distention, no guardingExtremities: no clubbing, no cyanosisNeuro/SALES ASSISTANT: alert, oriented X 3, no motor deficitsSkin: dry, normal colorPsychiatry: normal affect, no hallucinations ResultsFindings/Data:Laboratory Tests 03/07/23 0856:[Embedded Image Not Available] 03/07/23 0231:[Embedded Image Not Available] 03/06/23 1955:[Embedded Image Not Available] 03/06/23 1606:[Embedded Image Not Available]Laboratory Tests 03/07 03/06 03/06 0236 2107 1607 Blood Gas Puncture Site Art Line Art Line Art Line O2 Saturation (90 - 100 %) 94.9 94.5 97.8 ABG pH (7.35 - 7.45) 7.361 7.385 7.331 L ABG pCO2 (35.0 - 45 mmHg) 49.1 H 44.2 51.3 *H ABG pO2 (80 - 100.0 mmHg) 79.1 L 75.5 L 112.0 H ABG HCO3 (22.0 - 26.0 MMOL/L) 27.8 H 26.4 H 27.0 H ABG Total CO2 29.3 27.7 28.5 ABG Base Excess (-4.0 - 4.0 MMOL/L) 2.3 1.4 1.2 ABG Hematocrit (37.5 - 50.7 %) 32 L 31 L 29 L ABG Hemoglobin (12.5 - 16.9 G/DL) 10.7 L 10.5 L 10.0 L Shayla Test Positive Positive Sodium (134 - 147 mmol/L) 146 145 144 Potassium (3.4 - 5.0 mmol/L) 4.4 4.6 3.8 Chloride (100 - 108 mmol/L) 109 H 108 109 H Ionized Calcium (1.12 - 1.32 MMOL/L) 1.21 1.18 1.18 Lactic Acid (0.9 - 1.7 mmol/l) 0.4 L Temperature (F) 99 99.3 O2 Delivery Device HFNC Cannula Cannula Laboratory Tests 03/07 03/07 03/07 03/07 03/07 1156 0856 0809 0236 0231Chemistry Sodium (134 - 147 mEq/L) 144 144 Potassium (3.4 - 5.0 mEq/L) 4.2 4.3 Chloride (100 - 108 mEq/L) 108 110 H Carbon Dioxide (21 - 33 mEq/l) 25 28 Anion Gap (0 - 20) 15 11 BUN (7 - 18 mg/dL) 66 H 56 H Creatinine (0.6 - 1.3 mg/dL) 2.8 H 2.9 H POC Creatinine (0.8 - 1.3 mg/dL) 3.3 H Glomerular Filtr Rate (70 - 80) 23.4 L 22.4 L Glucose (70 - 110 mg/dL) 214 H 157 H POC Glucose (70 - 110 MG/DL) 202 H 183 H POC Glucose (mg/dL) (70 - 110 MG/DL) 128 H Calcium (8.0 - 10.5 mg/dL) 8.3 8.6 Magnesium (1.80 - 2.40 mg/dL) 2.71 H Total Bilirubin (0.0 - 1.0 mg/dL) 0.40 Direct Bilirubin (0.0 - 0.30 MG/DL) 0.20 Indirect Bilirubin (MG/DL) 0.20 AST (15 - 37 IUnit/L) 26 ALT (30 - 65 IUnit/L) 17 L Total Alk Phosphatase (20 - 125 41IUnit/L) Total Protein (6.4 - 8.2 g/dL) 5.7 L Albumin (3.4 - 5.0 g/dL) 3.40 03/07 03/06 03/06 03/06 03/06 0114 2305 7 1954 1607Chemistry Sodium (134 - 147 mEq/L) 145 Potassium (3.4 - 5.0 mEq/L) 4.4 Chloride (100 - 108 mEq/L) 110 H Carbon Dioxide (21 - 33 mEq/l) 27 Anion Gap (0 - 20) 13 BUN (7 - 18 mg/dL) 58 H Creatinine (0.6 - 1.3 mg/dL) 3.0 H POC Creatinine (0.8 - 1.3 mg/dL) 3.8 H 3.3 H Glomerular Filtr Rate (70 - 80) 21.5 L Glucose (70 - 110 mg/dL) 231 H POC Glucose (70 - 110 MG/DL) 134 H 181 H POC Glucose (mg/dL) (70 - 110 MG/DL) 213 H 131 H Calcium (8.0 - 10.5 mg/dL) 8.4 Magnesium (1.80 - 2.40 mg/dL) 2.53 H 03/06 1351 Chemistry POC Glucose (70 - 110 MG/DL) 176 H Laboratory Tests 03/07 03/06 0231 1606 Hematology WBC (4.5 - 11.0 x10 3/uL) 7.8 7.7 RBC (4.00 - 5.60 x10 6/uL) 3.42 L 3.30 L Hgb (12.5 - 16.9 g/dL) 10.1 L 10.1 L Hct (37.5 - 50.7 %) 31.4 L 30.3 L MCV (81.0 - 99.0 fL) 91.8 91.8 MCH (27.0 - 33.0 pg) 29.5 30.6 MCHC (33.0 - 37.0 g/dL) 32.2 L 33.3 RDW (11.5 - 14.5 %) 17.1 H 17.2 H Plt Count (150 - 400 x10 3/uL) 103 L 97 L MPV (7.0 - 9.0 fL) 10.8 H 11.1 H Neut % (Auto) (56.0 - 77.0 %) 89.8 H 91.1 H Lymph % (Auto) (14.0 - 32.0 %) 2.7 L 2.7 L [place] % (Auto) (4.8 - 9.0 %) 6.7 5.2 Eos % (Auto) (0.3 - 3.7 %) 0.0 L 0.0 L Baso % (Auto) (0.0 - 2.0 %) 0.0 0.1 Neut # (Auto) (2.0 - 7.6 x10 3/uL) 6.96 7.00 Lymph # (Auto) (1.0 - 3.8 x10 3/uL) 0.21 L 0.21 L [place] # (Auto) (0.1 - 0.8 x10 3/uL) 0.52 0.40 Eos # (Auto) (0.0 - 0.2 x10 3/uL) 0.00 0.00 Baso # (Auto) (0.0 - 0.2 x10 3/uL) 0.00 0.01 Abs Immat Gran (auto) (0.00 - 0.03 x10 3/uL) 0.06 H 0.07 H Add Manual Diff NO NO Immature Gran % (0.0 - 2.0 %) 0.8 0.9 Nucleated RBC % (0 - 0 %) 0.0 0.0 Nucleated RBCs # (Man) (0.0 - 0.1 x10 3/uL) 0.00 0.00 Radiology data:Recent Impressions:RADIOLOGY - XR CHEST 1 V 03/07 5951 Report Impression - Status: SIGNED Entered: 03/07/2023 3014 IMPRESSION: 1. Increased interstitial opacities compatible with edema. 2. Increased right pleural effusion with associated basilar atelectasis versus airspace disease. 3. Stable small volume left pneumothorax with thoracostomy tube in place. Stable left basilar pleuroparenchymal changes. Impression By: Wilbert Brown M.D. Results: x-ray personally reviewed Diagnosis, Assessment PlanFree Text A P:1- Acute COPD exacerbation/postop respiratory insufficiency2- Recent pulmonary embolism on Eliquis3- NSTEMI/Multivessel coronary artery disease5- Hypertension6- History of tobacco use7- Obesity8- Acute renal failure9- S/P CABG X4 03/04/23 - BIPAP support as needed,- Taper IV Solu-Medrol 20 mg daily- Continue Pulmicort Perforomist and Atrovent nebulizers- Chest tubes per CTS- Mucomyst/Hypersal as needed- CTA chest reviewed, no PE, emphysema, small effusions, RLL 1.[address] Need[address] CT chest in 6-8 weeks. Patient informed - Monitor renal function, nephrology following. Need diuresis- CXR noted with pulm edema- PT/OT at 1303 RPT #:[id number] OF REPORTPRProgress [id number]:00:[id number] able for patient [id number]:03:43 [facility] 2023-03-07 12:02:00 [id number]:02:00 [facility] ProgREPORT#:[id number] REPORT STATUS: SignedDATE:03/07/23 TIME: 1202 PATIENT: TEVIN NYE UNIT #: [id number]#: [id number] ROOM[address]DOB: [birth year] AGE: 73 SEX: M ATTEND: Luci Villeda MDADM AUTHOR: Luci Villeda MD * ALL edits or amendments must be made on the electronic/computer document * GeneralPost-op: day 3Status post:03/04/23 CABG x 4 (MCCORMICK-LAD,SVG-Renea, SVG-OM, SVG-PDA) [facility]AA EVH (LGSV) Posterior pericardiotomy SubjectiveChief complaint:chest pain Follow up CABG Review of SystemsConstitutional:Denies: chills, fatigue, generalized weakness. Skin:Denies: abrasion, bruising, laceration. Allergy/Immun:Denies: allergic reaction, anaphylaxis, rhinorrhea. Eyes:Denies: redness, visual loss/blurred, eye pain. ENT:Denies: ear ringing, throat swelling, toothache. Respiratory:Denies: [place] (dyspnea on exertion), pneumonia, SOB. Cardiovascular:Denies: chest pain, edema, orthopnea. GI:Denies: abdominal pain, anorexia, melena, nausea. :Denies: dysuria, flank pain. Musculoskeletal:Denies: arthritis, extremity pain, lumbar pain. Heme:Denies: adenopathy, bleeding, petechiae. Endocrine:Denies: cold intolerance, polydipsia, weight gain. Neuro:Denies: confusion, dizziness, seizure, syncope. All systems rev neg: except as marked Objective GeneralVS/I OLast Documented: Result Date Time B/P 146/52 03/07 1145 B/P Mean 80 03/07 1145 Pulse Ox 97 03/07 1145 Temp 37.2 03/07 1145 Pulse 75 03/07 1145 Resp 28 03/07 1145 O2 Delivery Nasal cannula 03/07 0800 O2 Flow Rate 2 03/07 0800 FiO2 40 03/07 0125 24 hour I O ending at 0700: 03/07 0700 03/06 1900 Intake Total 431.70 2474.00 Output Total 695 805 Balance -263.30 1669.00 Intake, IV 231.70 564.00 Intake, Oral 200 1080 Intake, Oral 480 Supplement Intake, 350 Packed Cells Output, Chest 170 180 Tube Drainage Output, Urine 525 625 Patient 90.9 kg 89.811 kg Weight Weight Standing scale Measurement Method PATIENT WEIGHT: Weight (lb): 200Weight (oz): 6.4Weight (kg): 90.900 Dietitian Nutrition assessmentThe data set between the solid lines has been imported from the dietitian's assessment. BMI Calculated: 31.4Nutrition related diagnosis: Nutrition diagnosis details: Nutrition problem: Increased nutrient needsNutrition etiology: Acute illnessNutrition signs and symptoms: ESTIMATED NEEDS S/P SURGERYNutrition prescription: 1. RECOMMEND ADVANCE TO A CCD5 CARDIAC DIET APPROPRIATE. 2. PROVIDE GLUCERNA TID WITH MEALS. 3. HEALTHY HEART DIET EDUCATIONPRIOR TO DISCHARGE. 4. MONITOR PO, WT, LABS, BM.Dietitian name: Purvi Garay, DIETAssessment completed: 03/05/23 Physical ExamGeneral appearance: alert, awake, orientedWound/incision: Location:sternal Site condition: dressing clean dry, dressing intactHEENT: anicteric, mucosal membranes moist, pupils reactive to lightNeck: full range of motion, non-tenderCardiovascular: irregular rhythm, normal heart sounds, regular rate rhythmRespiratory: decreased breath sounds, aerating well, symmetric expansionAbdomen: soft, non-tenderGenitourinary: no bladder distentionExtremities: dry, moves allMusculoskeletal: full range of motionNeuro/SALES ASSISTANT: alert, oriented X 3Skin: dry, intactPsychiatry: normal affect, normal mood Current MedicationsMedications:Active Meds + DC'd Last 24 HrsMethylprednisolone Sodium Succinate (Solu-Medrol 40 MG Vial) 20 MG DAILY IV (UNVr) Metoprolol Tartrate (LOPRESSOR) 12.5 MG Q12HR PO (UNV) Ipratropium [place] (ATROVENT) 500 MCG RTQ2H PRN PRN INH Amiodarone HCl (CORDARONE) 400 MG Q12HR PO (CKD) Amlodipine Besylate (NORVASC) 5 MG DAILY PO (DCr) Cyanocobalamin (Vitamin B-12 500 mcg tab) 500 MCG DAILY PO Ferrous Sulfate (FERROUS SULFATE) 325 MG DAILY PO Metoprolol Tartrate (LOPRESSOR) 25 MG Q12HR PO (DCr) Methylprednisolone Sodium Succinate (Solu-Medrol 40 MG Vial) 20 MG Q12H IV (DCr) Calcium Carbonate (TUMS CHEW TAB) 1,000 MG Q6H PRN PRN PO Potassium Chloride (POTASSIUM CHLORIDE 20MEQ TAB.ER) 20 MEQ STAT STA PO (DC) Perflutren Protein Type A Microsphe (OPTISON 3ML VIAL) 0 .STK-MED ONE IV (DC) Bisacodyl (DULCOLAX) 10 MG ONCE PRN RECTAL Magnesium Hydroxide (MILK OF MAGNESIA) 30 ML ONCE PRN PO (DC) Amiodarone HCl (CORDARONE) 400 MG TID PO (DC) Atorvastatin Calcium (LIPITOR) 40 MG 2100 PO Budesonide (PULMICORT RESPULES) 0.5 MG RTBID INH Formoterol Fumarate (PERFOROMIST) 20 MCG RTBID NEB Methylprednisolone Sodium Succinate (Solu-Medrol 40 MG Vial) 40 MG Q12H IV (DC) Sterile Water (WATER FOR INJECTION) 1 ML ASDIR PRN IV Tamsulosin HCl (Flomax 0.4 mg) 0.8 MG PC BK PO Clopidogrel Bisulfate (Plavix) 75 MG DAILY PO Mupirocin (BACTROBAN 2% 22 GM OINTMENT) 1 APPLIC BID NASAL Polyethylene Glycol (MIRALAX) 17 GM DAILY PO Amiodarone HCl (AMIODARONE HCL) 450 MG ASDIR IV (CKD) Dextrose/Water (D5%W NON-DEHP) 250 MLPantoprazole (PROTONIX) 40 MG DAILY@0600 PO Aspirin (ASPIRIN) 81 MG DAILY PO Docusate Sodium (COLACE) 100 MG BID PO Metoprolol Tartrate (LOPRESSOR) 12.5 MG Q12HR PO (DC) Sennosides (Senna Lax 8.6 MG TABLET) 17.2 MG BEDTIME PO Ipratropium [place] (ATROVENT) 500 MCG RTQ4H INH Acetaminophen (TYLENOL) 650 MG Q4H PRN PRN PO Acetaminophen (TYLENOL) 650 MG Q4H PRN PRN RECTAL Calcium Chloride (CALCIUM CHLORIDE) 1 GM ASDIR PRN IV Dextrose/Water (DEXTROSE 10% IN WATER) 125 ML ASDIR PRN IV (CKD) Dextrose/Water (DEXTROSE 10% IN WATER) 250 ML ASDIR PRN IV (CKD) Epinephrine (ADRENALIN CHLORIDE) 4 MG ASDIR IV Dextrose/Water (DEXTROSE 5% WATER) 246 MLGlucagon (GLUCAGON) 1 MG ASDIR PRN IM Insulin Human Regular (HumuLIN R) 100 UNIT ASDIR IV (CKD) Sodium Chloride (SODIUM CHLORIDE 0.9%) 99 MLMagnesium Sulfate (MAGNESIUM SULFATE 4GM/SWFI 100ML) 100 ML ASDIR PRN IV Magnesium Sulfate (MAGNESIUM SULFATE 2GM/SWFI 50ML) 50 ML ASDIR PRN IV Magnesium Sulfate/Dextrose (MAGNESIUM SULFATE 1GM/D5W 100ML) 100 ML ASDIR PRN IV Nitroglycerin/Dextrose (NITROGLYCERIN 50,000MCG/D5W 250ML) 250 ML ASDIR IV Norepinephrine Bitartrate (NOREPINEPHRINE 8 MG/NS 250 ML) 250 ML TITRATE IV Ondansetron HCl (ZOFRAN) 4 MG Q6H PRN PRN IV Potassium Chloride (KCL 20MEQ/SWFI 100ML) 100 ML ASDIR PRN IV Sodium Bicarbonate (SODIUM BICARBONATE) 50 MEQ ASDIR PRN IV Sodium Chloride (SODIUM CHLORIDE 0.9%) 250 ML Q24H IV (DC) ResultsFindings/Data:Laboratory Tests 03/07 03/06 03/06 8030 8646 8860 Blood Gas Puncture Site Art Line Art Line Art Line O2 Saturation (90 - 100 %) 94.9 94.5 97.8 ABG pH (7.35 - 7.45) 7.361 7.385 7.331 L ABG pCO2 (35.0 - 45 mmHg) 49.1 H 44.2 51.3 *H ABG pO2 (80 - 100.0 mmHg) 79.1 L 75.5 L 112.0 H ABG HCO3 (22.0 - 26.0 MMOL/L) 27.8 H 26.4 H 27.0 H ABG Total CO2 29.3 27.7 28.5 ABG Base Excess (-4.0 - 4.0 MMOL/L) 2.3 1.4 1.2 ABG Hematocrit (37.5 - 50.7 %) 32 L 31 L 29 L ABG Hemoglobin (12.5 - 16.9 G/DL) 10.7 L 10.5 L 10.0 L Shayla Test Positive Positive Sodium (134 - 147 mmol/L) 146 145 144 Potassium (3.4 - 5.0 mmol/L) 4.4 4.6 3.8 Chloride (100 - 108 mmol/L) 109 H 108 109 H Ionized Calcium (1.12 - 1.32 MMOL/L) 1.21 1.18 1.18 Lactic Acid (0.9 - 1.7 mmol/l) 0.4 L Temperature (F) 99 99.3 O2 Delivery Device HFNC Cannula Cannula Laboratory Tests 03/07 03/07 03/07 03/07 03/07 0856 0809 0236 0231 0114Chemistry Sodium (134 - 147 mEq/L) 144 144 Potassium (3.4 - 5.0 mEq/L) 4.2 4.3 Chloride (100 - 108 mEq/L) 108 110 H Carbon Dioxide (21 - 33 mEq/l) 25 28 Anion Gap (0 - 20) 15 11 BUN (7 - 18 mg/dL) 66 H 56 H Creatinine (0.6 - 1.3 mg/dL) 2.8 H 2.9 H POC Creatinine (0.8 - 1.3 mg/dL) 3.3 H Glomerular Filtr Rate (70 - 80) 23.4 L 22.4 L Glucose (70 - 110 mg/dL) 214 H 157 H POC Glucose (70 - 110 MG/DL) 183 H 134 H POC Glucose (mg/dL) (70 - 110 MG/DL) 128 H Calcium (8.0 - 10.5 mg/dL) 8.3 8.6 Magnesium (1.80 - 2.40 mg/dL) 2.71 H Total Bilirubin (0.0 - 1.0 mg/dL) 0.40 Direct Bilirubin (0.0 - 0.30 MG/DL) 0.20 Indirect Bilirubin (MG/DL) 0.20 AST (15 - 37 IUnit/L) 26 ALT (30 - 65 IUnit/L) 17 L Total Alk Phosphatase (20 - 125 IUnit/L) 41 Total Protein (6.4 - 8.2 g/dL) 5.7 L Albumin (3.4 - 5.0 g/dL) 3.40 03/06 03/06 03/06 03/06 03/06 2305 2107 1955 1607 1351 Chemistry Sodium (134 - 147 mEq/L) 145 Potassium (3.4 - 5.0 mEq/L) 4.4 Chloride (100 - 108 mEq/L) 110 H Carbon Dioxide (21 - 33 mEq/l) 27 Anion Gap (0 - 20) 13 BUN (7 - 18 mg/dL) 58 H Creatinine (0.6 - 1.3 mg/dL) 3.0 H POC Creatinine (0.8 - 1.3 mg/dL) 3.8 H 3.3 H Glomerular Filtr Rate (70 - 80) 21.5 L Glucose (70 - 110 mg/dL) 231 H POC Glucose (70 - 110 MG/DL) 181 H 176 H POC Glucose (mg/dL) (70 - 110 MG/DL) 213 H 131 H Calcium (8.0 - 10.5 mg/dL) 8.4 Magnesium (1.80 - 2.40 mg/dL) 2.53 H 03/06 1205 Chemistry POC Glucose (70 - 110 MG/DL) 152 H Laboratory Tests 03/07 03/06 0231 1606 Hematology WBC (4.5 - 11.0 x10 3/uL) 7.8 7.7 RBC (4.00 - 5.60 x10 6/uL) 3.42 L 3.30 L Hgb (12.5 - 16.9 g/dL) 10.1 L 10.1 L Hct (37.5 - 50.7 %) 31.4 L 30.3 L MCV (81.0 - 99.0 fL) 91.8 91.8 MCH (27.0 - 33.0 pg) 29.5 30.6 MCHC (33.0 - 37.0 g/dL) 32.2 L 33.3 RDW (11.5 - 14.5 %) 17.1 H 17.2 H Plt Count (150 - 400 x10 3/uL) 103 L 97 L MPV (7.0 - 9.0 fL) 10.8 H 11.1 H Neut % (Auto) (56.0 - 77.0 %) 89.8 H 91.1 H Lymph % (Auto) (14.0 - 32.0 %) 2.7 L 2.7 L [place] % (Auto) (4.8 - 9.0 %) 6.7 5.2 Eos % (Auto) (0.3 - 3.7 %) 0.0 L 0.0 L Baso % (Auto) (0.0 - 2.0 %) 0.0 0.1 Neut # (Auto) (2.0 - 7.6 x10 3/uL) 6.96 7.00 Lymph # (Auto) (1.0 - 3.8 x10 3/uL) 0.21 L 0.21 L [place] # (Auto) (0.1 - 0.8 x10 3/uL) 0.52 0.40 Eos # (Auto) (0.0 - 0.2 x10 3/uL) 0.00 0.00 Baso # (Auto) (0.0 - 0.2 x10 3/uL) 0.00 0.01 Abs Immat Gran (auto) (0.00 - 0.03 x10 3/uL) 0.06 H 0.07 H Add Manual Diff NO NO Immature Gran % (0.0 - 2.0 %) 0.8 0.9 Nucleated RBC % (0 - 0 %) 0.0 0.0 Nucleated RBCs # (Man) (0.0 - 0.1 x10 3/uL) 0.00 0.00 Radiology data:Recent Impressions:RADIOLOGY - XR CHEST 1 V 03/07 0511 Report Impression - Status: SIGNED Entered: 03/07/2023 3660 IMPRESSION: 1. Increased interstitial opacities compatible with edema. 2. Increased right pleural effusion with associated basilar atelectasis versus airspace disease. 3. Stable small volume left pneumothorax with thoracostomy tube in place. Stable left basilar pleuroparenchymal changes. Impression By: Wilbert Brown M.D. Results: labs reviewed, vital signs stable, rythm personally rev'd, x-ray personally reviewed, current med profile rev'd Diagnosis, Assessment PlanHospital course to date:This is a pleasant 72 year old male with past medical history of hypertension, dyslipidemia, DM-2 (on insulin), former smoker (quit 2018), BPH, prostate CA s/pradiation, COPD (uses inhaler at home, no home oxygen), and PE (November 2022 on eliquis) who presented to [facility] with chest pain, dyspnea on exertion, and NSTEMI. Coronary angiogram was done and revealed severe multivessel coronary artery disease. Patient was then transferred to [facility] for CV surgery evaluation and need for CABG. PLAN Admit patient to CVICUInitiate preop workupIncentive spirometer teachingCarotid ultrasoundBLE vein mappingCT chest non-contrastUA to r/o UTIEchocardiogramHeparin and Nitro dripConsult pulmonary, cardiology, and intensivistCoronary angiogram reviewed and patient will benefit from surgical revascularizaton. The surgery, risks involved, STS score, benefits, complications and alternatives were explained to the patient and his brother. He acknowledged understanding and is willing to proceed. We will tentatively schedule him for surgery tomorrow morning.Further recommendations to follow. 03/04/23CABG x 4 (MCCORMICK-LAD,SVG-Renea, SVG-OM, SVG-PDA)ALAAEVH (LGSV)Posterior pericardiotomy 03/05/23POD 1Patient alert, awake, and orientedLabs and CXR reviewedOn bipap 12/5 40%, wean off as toleratedTrend abgsWean off levo as toleratedKeep both chest tubesMonitor strict I Os and renal functionPT/OT, ambulate, OOB in chairDVT ppx with SCDsMonitor patient closely in CVICU 03/06/23POD 2Patient in stable conditionCXR and labs reviewedHGB 6.6, transfuse 2 units PRBCDiscontinue dopamine dripEchocardiogramDiscontinue both chest tubesCR increasing, renal following, UOP 25 cc/hrOOB in chairMonitor closely in CVICU 03/07/23POD 3Patient alert, awake, and oriented, no complaintsLabs and CXR reviewedOn 2l nasal cannula, encourage I-S useHgb stable 10.1Discontinue left pleural chest tubeOn amio drip 0.5Monitor renal function, Cr 2.9Consult rehabAmbulate patient with PT/OTKeep patient in CVICU Consultants: anesthesiology, cardiology, cardiovascular surgery, critical/osteopathy doctor, hospitalist at 1732 RPT #:[id number] OF REPORTPRProgress [id number]:02:00G.[id number] able for patient [id number]:32:52 HCACL 2023-03-07 11:25:00 [id number] [id number]+[id number]:25:00 [facility] ([facility])Critical Care Progress NoteREPORT#:[id number] REPORT STATUS: SignedDATE:03/07/23 TIME: 1125 PATIENT: TEVIN NYE UNIT #: [id number]#: [id number] [address] AGE: 72 SEX: M ATTEND[facility]a [facility] AUTHOR: Dina Mccain MD * ALL edits or amendments must be made on the electronic/computer document * SubjectiveChief complaint: Dyspnea Wheezing Chest pain/Unstable anginaHPI: Tevin Nye is a 72-year-old gentleman with past medical history significant for hypertension, diabetes, dyslipidemia, former smoker quit in 2008, BPH, prostate cancer status postradiation severe COPD, not home oxygen dependent, severe left carotid stenosis, who was admitted to the medical floor with diagnosis of NSTEMI. He was found to have severe multivessel coronary disease on cardiac catheterization. Patient also had shortness of breath and wheezing. He was seen by pulmonology and started on steroid therapy along with nebulizer treatments. Patient underwent elective coronary artery bypass grafting surgery and received 4 jumps along with isolation of left atrial appendage. He came outof the OR with norepinephrine at 4 mcg and epinephrine at 2 mcg. EF was normal. Patient received parasternal block. Intraoperatively he received 1.5 L of crystalloids, 250 mL of Cell Saver, hemoglobin was 8.3 g/dL but on arrival his latest hemoglobin is 6.9 g/dL. Patient has been ordered 2 units of packed red cells. Intra-Op urine output was 425 mL and EBL was 100 mL. Patient received fentanyl and last neuromuscular blockade dose was at 3:15 PM. Patient was givenhydrocortisone 100 mg IV at 2:45 PM for chronic steroid dependence. He is currently on assist-control at 18 tidal volume 480 PEEP of 5 and 50% FiO2 and ismoving tidal volumes at 470+. Vital signs are stable with heart rate 82 sinus rhythm, blood pressure 95/41 mmHg, pulse ox 100% while on 50% FiO2 and respiratory rate is 14. Chest tube output is minimal at 3 mm each. Patient wasordered albumin 25% to 50 mL. Pupils are bilaterally symmetrical and reactive to light measuring 3 mm on each side. Lab work upon arrival in the CVICU room #2201 revealed a potassium of 3.3, glucose 230, creatinine 1.46 mg/dL, hemoglobinof 6.9 g/dL and hematocrit of 20%. Tevin Gonzalez is a 72 y.o. male with PMH of hypertension, dyslipidemia, diabetes, former smoker (quit 2008), BPH, prostate CA s/p radiation, COPD (uses inhaler at home, no home oxygen), and PE (November 2022 on eliquis) who presented to [facility] with chest pain, dyspnea on exertion, and NSTEMI. Coronary angiogram was done and revealed severe multivessel coronary artery disease. Patient was then transferred to [facility] for CV surgery evaluation and need for CABG. on the floor he had chest pain at rest and was transferred to the ICU for nitroglycerin drip and preoperative workup. Also noted to have chest pain - which he states is better and related to when he coughs. Currently without any pain. Patient underwent elective CABG x5 and isolation of left atrial appendage on 03/04/2023. Comments:Interval history- Patient is not on any pressors Will discontinue chest tube Making good urine Objective GeneralVS/I OLast Documented: Result Date Time B/P 140/48 03/07 1115 B/P Mean 73 03/07 1115 Pulse Ox 98 03/07 1115 Temp 37.2 03/07 1115 Pulse 65 03/07 1115 Resp 19 03/07 1115 O2 Delivery Nasal cannula 03/07 0800 O2 Flow Rate 2 03/07 0800 FiO2 40 03/07 0125 24 hour I O ending at 0700: 03/07 0700 03/06 1900 Intake Total 431.70 2474.00 Output Total 695 805 Balance -263.30 1669.00 Intake, IV 231.70 564.00 Intake, Oral 200 1080 Intake, Oral 480 Supplement Intake, 350 Packed Cells Output, Chest 170 180 Tube Drainage Output, Urine 525 625 Patient 90.9 kg 89.811 kg Weight Weight Standing scale Measurement Method PATIENT WEIGHT: Weight (lb): 200Weight (oz): 6.4Weight (kg): 90.900 Medications:Active Meds + DC'd Last 24 HrsIpratropium [place] (ATROVENT) 500 MCG RTQ2H PRN PRN INH Amiodarone HCl (CORDARONE) 400 MG Q12HR PO (CKD) Amlodipine Besylate (NORVASC) 5 MG DAILY PO Cyanocobalamin (Vitamin B-12 500 mcg tab) 500 MCG DAILY PO Ferrous Sulfate (FERROUS SULFATE) 325 MG DAILY PO Metoprolol Tartrate (LOPRESSOR) 25 MG Q12HR PO Methylprednisolone Sodium Succinate (Solu-Medrol 40 MG Vial) 20 MG Q12H IV Calcium Carbonate (TUMS CHEW TAB) 1,000 MG Q6H PRN PRN PO Potassium Chloride (POTASSIUM CHLORIDE 20MEQ TAB.ER) 20 MEQ STAT STA PO (DC) Perflutren Protein Type A Microsphe (OPTISON 3ML VIAL) 0 .STK-MED ONE IV (DC) Bisacodyl (DULCOLAX) 10 MG ONCE PRN RECTAL Magnesium Hydroxide (MILK OF MAGNESIA) 30 ML ONCE PRN PO (DC) Amiodarone HCl (CORDARONE) 400 MG TID PO (DC) Atorvastatin Calcium (LIPITOR) 40 MG 2100 PO Budesonide (PULMICORT RESPULES) 0.5 MG RTBID INH Formoterol Fumarate (PERFOROMIST) 20 MCG RTBID NEB Methylprednisolone Sodium Succinate (Solu-Medrol 40 MG Vial) 40 MG Q12H IV (DC) Sterile Water (WATER FOR INJECTION) 1 ML ASDIR PRN IV Tamsulosin HCl (Flomax 0.4 mg) 0.8 MG PC BK PO Clopidogrel Bisulfate (Plavix) 75 MG DAILY PO Mupirocin (BACTROBAN 2% 22 GM OINTMENT) 1 APPLIC BID NASAL Polyethylene Glycol (MIRALAX) 17 GM DAILY PO Amiodarone HCl (AMIODARONE HCL) 450 MG ASDIR IV (CKD) Dextrose/Water (D5%W NON-DEHP) 250 MLPantoprazole (PROTONIX) 40 MG DAILY@0600 PO Aspirin (ASPIRIN) 81 MG DAILY PO Docusate Sodium (COLACE) 100 MG BID PO Metoprolol Tartrate (LOPRESSOR) 12.5 MG Q12HR PO (DC) Sennosides (Senna Lax 8.6 MG TABLET) 17.2 MG BEDTIME PO Ipratropium [place] (ATROVENT) 500 MCG RTQ4H INH Acetaminophen (TYLENOL) 650 MG Q4H PRN PRN PO Acetaminophen (TYLENOL) 650 MG Q4H PRN PRN RECTAL Calcium Chloride (CALCIUM CHLORIDE) 1 GM ASDIR PRN IV Dextrose/Water (DEXTROSE 10% IN WATER) 125 ML ASDIR PRN IV (CKD) Dextrose/Water (DEXTROSE 10% IN WATER) 250 ML ASDIR PRN IV (CKD) Epinephrine (ADRENALIN CHLORIDE) 4 MG ASDIR IV Dextrose/Water (DEXTROSE 5% WATER) 246 MLGlucagon (GLUCAGON) 1 MG ASDIR PRN IM Insulin Human Regular (HumuLIN R) 100 UNIT ASDIR IV (CKD) Sodium Chloride (SODIUM CHLORIDE 0.9%) 99 MLMagnesium Sulfate (MAGNESIUM SULFATE 4GM/SWFI 100ML) 100 ML ASDIR PRN IV Magnesium Sulfate (MAGNESIUM SULFATE 2GM/SWFI 50ML) 50 ML ASDIR PRN IV Magnesium Sulfate/Dextrose (MAGNESIUM SULFATE 1GM/D5W 100ML) 100 ML ASDIR PRN IV Nitroglycerin/Dextrose (NITROGLYCERIN 50,000MCG/D5W 250ML) 250 ML ASDIR IV Norepinephrine Bitartrate (NOREPINEPHRINE 8 MG/NS 250 ML) 250 ML TITRATE IV Ondansetron HCl (ZOFRAN) 4 MG Q6H PRN PRN IV Potassium Chloride (KCL 20MEQ/SWFI 100ML) 100 ML ASDIR PRN IV Sodium Bicarbonate (SODIUM BICARBONATE) 50 MEQ ASDIR PRN IV Sodium Chloride (SODIUM CHLORIDE 0.9%) 250 ML Q24H IV (DC) Physical ExamHead/eyes: EOMI, PERRLCardiovascular: normal capillary refill, normal heart sounds, regular rate and rhythm, normal S1/W8Qkjkhumsxpw: aerating well, clear to auscultation, symmetric expansionAbdomen: soft, non-tenderGenitourinary: urinary catheter, no bladder distentionExtremities: no clubbing, no cyanosis, no edemaSkin: abnormal temperature, dry, no rashPsychiatry: unable to evaluate ResultsFindings/data:Laboratory Tests 03/07 03/06 03/06 0236 2107 1607 Blood Gas Puncture Site Art Line Art Line Art Line O2 Saturation (90 - 100 %) 94.9 94.5 97.8 ABG pH (7.35 - 7.45) 7.361 7.385 7.331 L ABG pCO2 (35.0 - 45 mmHg) 49.1 H 44.2 51.3 *H ABG pO2 (80 - 100.0 mmHg) 79.1 L 75.5 L 112.0 H ABG HCO3 (22.0 - 26.0 MMOL/L) 27.8 H 26.4 H 27.0 H ABG Total CO2 29.3 27.7 28.5 ABG Base Excess (-4.0 - 4.0 MMOL/L) 2.3 1.4 1.2 ABG Hematocrit (37.5 - 50.7 %) 32 L 31 L 29 L ABG Hemoglobin (12.5 - 16.9 G/DL) 10.7 L 10.5 L 10.0 L Shayla Test Positive Positive Sodium (134 - 147 mmol/L) 146 145 144 Potassium (3.4 - 5.0 mmol/L) 4.4 4.6 3.8 Chloride (100 - 108 mmol/L) 109 H 108 109 H Ionized Calcium (1.12 - 1.32 MMOL/L) 1.21 1.18 1.18 Lactic Acid (0.9 - 1.7 mmol/l) 0.4 L Temperature (F) 99 99.3 O2 Delivery Device HFNC Cannula Cannula Laboratory Tests 03/07 03/07 03/07 03/07 03/07 0856 0809 0236 0231 0114Chemistry Sodium (134 - 147 mEq/L) 144 144 Potassium (3.4 - 5.0 mEq/L) 4.2 4.3 Chloride (100 - 108 mEq/L) 108 110 H Carbon Dioxide (21 - 33 mEq/l) 25 28 Anion Gap (0 - 20) 15 11 BUN (7 - 18 mg/dL) 66 H 56 H Creatinine (0.6 - 1.3 mg/dL) 2.8 H 2.9 H POC Creatinine (0.8 - 1.3 mg/dL) 3.3 H Glomerular Filtr Rate (70 - 80) 23.4 L 22.4 L Glucose (70 - 110 mg/dL) 214 H 157 H POC Glucose (70 - 110 MG/DL) 183 H 134 H POC Glucose (mg/dL) (70 - 110 MG/DL) 128 H Calcium (8.0 - 10.5 mg/dL) 8.3 8.6 Magnesium (1.80 - 2.40 mg/dL) 2.71 H Total Bilirubin (0.0 - 1.0 mg/dL) 0.40 Direct Bilirubin (0.0 - 0.30 MG/DL) 0.20 Indirect Bilirubin (MG/DL) 0.20 AST (15 - 37 IUnit/L) 26 ALT (30 - 65 IUnit/L) 17 L Total Alk Phosphatase (20 - 125 IUnit/L) 41 Total Protein (6.4 - 8.2 g/dL) 5.7 L Albumin (3.4 - 5.0 g/dL) 3.40 03/06 03/06 03/06 03/06 03/06 2305 2107 1955 1607 1351 Chemistry Sodium (134 - 147 mEq/L) 145 Potassium (3.4 - 5.0 mEq/L) 4.4 Chloride (100 - 108 mEq/L) 110 H Carbon Dioxide (21 - 33 mEq/l) 27 Anion Gap (0 - 20) 13 BUN (7 - 18 mg/dL) 58 H Creatinine (0.6 - 1.3 mg/dL) 3.0 H POC Creatinine (0.8 - 1.3 mg/dL) 3.8 H 3.3 H Glomerular Filtr Rate (70 - 80) 21.5 L Glucose (70 - 110 mg/dL) 231 H POC Glucose (70 - 110 MG/DL) 181 H 176 H POC Glucose (mg/dL) (70 - 110 MG/DL) 213 H 131 H Calcium (8.0 - 10.5 mg/dL) 8.4 Magnesium (1.80 - 2.40 mg/dL) 2.53 H 03/06 1205 Chemistry POC Glucose (70 - 110 MG/DL) 152 H Laboratory Tests 03/07 03/06 0231 1606 Hematology WBC (4.5 - 11.0 x10 3/uL) 7.8 7.7 RBC (4.00 - 5.60 x10 6/uL) 3.42 L 3.30 L Hgb (12.5 - 16.9 g/dL) 10.1 L 10.1 L Hct (37.5 - 50.7 %) 31.4 L 30.3 L MCV (81.0 - 99.0 fL) 91.8 91.8 MCH (27.0 - 33.0 pg) 29.5 30.6 MCHC (33.0 - 37.0 g/dL) 32.2 L 33.3 RDW (11.5 - 14.5 %) 17.1 H 17.2 H Plt Count (150 - 400 x10 3/uL) 103 L 97 L MPV (7.0 - 9.0 fL) 10.8 H 11.1 H Neut % (Auto) (56.0 - 77.0 %) 89.8 H 91.1 H Lymph % (Auto) (14.0 - 32.0 %) 2.7 L 2.7 L [place] % (Auto) (4.8 - 9.0 %) 6.7 5.2 Eos % (Auto) (0.3 - 3.7 %) 0.0 L 0.0 L Baso % (Auto) (0.0 - 2.0 %) 0.0 0.1 Neut # (Auto) (2.0 - 7.6 x10 3/uL) 6.96 7.00 Lymph # (Auto) (1.0 - 3.8 x10 3/uL) 0.21 L 0.21 L [place] # (Auto) (0.1 - 0.8 x10 3/uL) 0.52 0.40 Eos # (Auto) (0.0 - 0.2 x10 3/uL) 0.00 0.00 Baso # (Auto) (0.0 - 0.2 x10 3/uL) 0.00 0.01 Abs Immat Gran (auto) (0.00 - 0.03 x10 3/uL) 0.06 H 0.07 H Add Manual Diff NO NO Immature Gran % (0.0 - 2.0 %) 0.8 0.9 Nucleated RBC % (0 - 0 %) 0.0 0.0 Nucleated RBCs # (Man) (0.0 - 0.1 x10 3/uL) 0.00 0.00 Laboratory Tests 03/07/23 0856:[Embedded Image Not Available] 03/07/23 0231:[Embedded Image Not Available] 03/06/23 1955:[Embedded Image Not Available] 03/06/23 1606:[Embedded Image Not Available] Radiology dataRecent Impressions:RADIOLOGY - XR CHEST 1 V 03/07 0511 Report Impression - Status: SIGNED Entered: 03/07/2023 0755 IMPRESSION: 1. Increased interstitial opacities compatible with edema. 2. Increased right pleural effusion with associated basilar atelectasis versus airspace disease. 3. Stable small volume left pneumothorax with thoracostomy tube in place. Stable left basilar pleuroparenchymal changes. Impression By: Wilbert Brown M.D. Diagnosis, Assessment PlanFree text A P: Problem List: Chest painWheezingDyspneaMultivessel coronary artery diseaseNon-ST elevation MIStatus post CABG x5 and ILAAElective ventilator dependenceAcute pulmonary insufficiency following major cardiothoracic surgeryAcute blood loss anemiaMetabolic acidosisLactic acidosisHypokalemiaHyperglycemiaChronic steroid dependenceSevere left carotid stenosisHistory of severe COPD Assessment and Plan: Tevin Nye is a 72-year-old gentleman with past medical history significant for hypertension, diabetes, dyslipidemia, former smoker quit in 2008, BPH, prostate cancer status postradiation severe COPD, not home oxygen dependent, severe left carotid stenosis, who was admitted to the medical floor with diagnosis of NSTEMI. He was found to have severe multivessel coronary disease on cardiac catheterization. Patient also had shortness of breath and wheezing. He was seen by pulmonology and started on steroid therapy along with nebulizer treatments. Patient underwent elective coronary artery bypass grafting surgery and received 4 jumps along with isolation of left atrial appendage. He came outof the OR with norepinephrine at 4 mcg and epinephrine at 2 mcg. EF was normal. Patient received parasternal block. Intraoperatively he received 1.5 L of crystalloids, 250 mL of Cell Saver, hemoglobin was 8.3 g/dL but on arrival his latest hemoglobin is 6.9 g/dL. Patient has been ordered 2 units of packed red cells. Intra-Op urine output was 425 mL and EBL was 100 mL. Patient received fentanyl and last neuromuscular blockade dose was at 3:15 PM. Patient was givenhydrocortisone 100 mg IV at 2:45 PM for chronic steroid dependence. He is currently on assist-control at 18 tidal volume 480 PEEP of 5 and 50% FiO2 and ismoving tidal volumes at 470+. Vital signs are stable with heart rate 82 sinus rhythm, blood pressure 95/41 mmHg, pulse ox 100% while on 50% FiO2 and respiratory rate is 14. Chest tube output is minimal at 3 mm each. Patient wasordered albumin 25% to 50 mL. Pupils are bilaterally symmetrical and reactive to light measuring 3 mm on each side. Lab work upon arrival in the [facility] room #[id number] revealed a potassium of 3.3, glucose 230, creatinine 1.46 mg/dL, hemoglobinof 6.9 g/dL and hematocrit of 20%. Tevin Gonzalez is a 72 y.o. male with PMH of hypertension, dyslipidemia, diabetes, former smoker (quit 2008), BPH, prostate CA s/p radiation, COPD (uses inhaler at home, no home oxygen), and PE (November 2022 on eliquis) who presented to [facility] with chest pain, dyspnea on exertion, and NSTEMI. Coronary angiogram was done and revealed severe multivessel coronary artery disease. Patient was then transferred to [facility] for CV surgery evaluation and need for CABG. on the floor he had chest pain at rest and was transferred to the ICU for nitroglycerin drip and preoperative workup. Also noted to have chest pain - which he states is better and related to when he coughs. Currently without any pain. Patient underwent elective CABG x5 and isolation of left atrial appendage on 03/04/2023. Patient is postop day 0 after CABG x5 and ILAAHas severe left carotid stenosisOptimize systolic blood pressure to greater than 130 mmHgPatient was on chronic steroid therapy with Solu-MedrolAdrenal cortical support with hydrocortisone 25 mg IV every 8 hoursHas acute blood loss anemia with a hemoglobin of 6.9 g/dLTransfuse 2 units of packed red cellsPatient received Hydrocortisone 100 mg IV at 2:45 PM Start on Hydrocortisone 25 mg every 8 hoursAlso received parasternal blockCurrently on assist-control at 18 tidal volume 480 PEEP of 5 and 50% [id number] blood gas shows a pH of 7.28, pCO2 of 43 mmHg, pO2 of 175 mmHg and bicarbonate of 20 mmol with base excess at -6.5Patient has been ordered 1 amp of sodium bicarbonateRecheck ABGs in 1 hourChest tube output is minimal at 3 mL in both left pleural and mediastinal chest tubeBlood pressure is low upon arrival at 95/41 mm of HgOptimize blood pressure with Norepinephrine, titrate to a map of 70 or greaterAvoid sedationMonitor chest tube outputPupils are bilaterally symmetrical and reactive to light measuring 3 mm on each sideReplete potassium, check magnesium and ionized calciumFollow BMPGlycemic control with insulin drip, latest blood glucose is 230 mg/dL SCDs for DVT prophylaxis Noézach Madrid MD FACP [facility].32 PM 03/07/2023Neurologically patient is at baseline. Pain well controlledOn NC 2 L during the day and BiPAP at night. ABG and CXR reviewed. small right pleural effusion seen Continue duonebs, wean steroids to daily, pulmonary following In SR, stop amiodarone drip, continue beta she 12.5 mg metoprolol and amidoarone 400 BID LFTs within normal limits.Continue aspirin and Plavix.PPI daily.Discontinue the left pleural chest tube.No bowel movement yet. Abdomen soft. Give milk of mag.Creatinine is downtrending and is now 2.8.Continue to monitor the urine output.Renal following.Hold nephrotoxic medications.On insulin drip since he is on steroids. Continue to monitor for now.SCDs for DVT prophylaxis.Rehab evaluation Total critical care time 45 minutes excluding proceduresConsultants: anesthesiology, cardiology, cardiovascular surgery, critical/osteopathy doctor, hospitalist at 1139 RPT #:[id number] OF REPORTPRProgress [id number]:25:00G.[id number] able for patient oztmXSFFMNUCEFVBGC0737-41-09G41:40:55 HCACL 2023-03-07 06:50:00 [id number]+NGNnE5od b+PhKZuXnquBSJzp3BzPnt+KjTw1218-39-24V20:50:00 [facility] ([facility])Cardiology Progress NoteREPORT#:[id number] REPORT STATUS: SignedDATE:03/07/23 TIME: 0650 PATIENT: TEVIN NYE UNIT #: [id number]#: [id number] [address] [birth year] AGE: 72 SEX: M ATTEND: Luci Villeda [facility] AUTHOR: Anuj Sylvester MD * ALL edits or amendments must be made on the electronic/computer document * SubjectiveChief complaint:Better Objective GeneralVS/I O:24 hour I O ending at 0700: 03/07 0700 03/06 1900 Intake Total 431.70 2474.00 Output Total 695 805 Balance -263.30 1669.00 Intake, IV 231.70 564.00 Intake, Oral 200 1080 Intake, Oral 480 Supplement Intake, 350 Packed Cells Output, Chest 170 180 Tube Drainage Output, Urine 525 625 Patient 90.9 kg 89.811 kg Weight Weight Standing scale Measurement Method Vital Signs: Date Time Temp Pulse Resp B/P B/P Pulse O2 O2 Flow FiO2 Mean Ox Delivery Rate 03/07 0639 66 23 168/61 94 94 03/07 0636 167/60 92 03/07 0636 67 25 92 03/07 0630 67 23 164/102 126 93 03/07 0615 150/62 88 03/07 0615 63 24 130/66 92 100 03/07 0600 131/66 93 03/07 0600 65 19 142/61 85 99 03/07 0545 131/65 93 03/07 0545 65 19 136/60 82 99 03/07 0530 141/65 93 03/07 0530 63 20 149/118 121 100 03/07 0515 154/73 105 03/07 0515 71 26 95 03/07 0513 154/68 98 06/30 0513 72 30 158/59 88 90 06/30 0500 66 19 144/14 68 06/30 0445 158/74 107 06/30 0445 66 21 100 06/30 0430 156/72 103 06/30 0430 62 25 162/65 95 100 06/30 0415 138/68 97 06/30 0415 66 20 156/62 91 99 06/30 0400 140/65 97 06/30 0400 62 21 154/60 89 99 06/30 0353 62 21 153/60 89 99 06/30 0345 151/70 101 06/30 0345 64 22 167/63 97 99 06/30 0330 158/69 106 06/30 0330 68 29 183/70 107 100 06/30 0315 66 21 176/68 103 99 06/30 0301 98.1 68 15 145/63 91 93 06/30 0300 68 23 159/62 94 93 06/30 0300 68 93 06/30 0245 67 21 95 06/30 0230 150/68 97 06/30 0230 64 21 166/66 99 97 06/30 0215 140/66 95 06/30 0215 67 23 160/62 93 96 06/30 0200 152/74 106 06/30 0200 62 19 161/65 96 99 06/30 0145 154/70 107 06/30 0145 61 18 99 06/30 0130 65 21 99 06/30 0125 68 100 40 06/30 0122 168/79 113 06/30 0122 67 20 99 06/30 0115 70 21 92 06/30 0100 139/73 96 06/30 0100 63 21 157/63 92 97 06/30 0045 144/73 102 06/30 0045 98.6 63 19 161/64 95 97 06/30 0030 143/70 100 06/30 0030 63 20 161/64 94 97 06/30 0015 160/72 104 06/30 0015 65 23 95 06/30 0000 142/66 99 06/30 0000 66 22 158/62 92 95 06/29 2345 157/70 101 06/29 2345 66 23 167/66 97 94 06/29 2330 159/74 107 06/29 2330 65 23 96 06/29 2315 66 22 95 06/29 2300 149/77 103 06/29 2300 69 24 165/66 99 94 06/29 2245 139/71 99 06/29 2245 64 18 152/61 89 97 03/06 2230 142/70 98 03/06 2230 65 20 152/60 89 96 03/06 2215 141/69 99 03/06 2215 64 20 154/60 89 96 03/06 2200 140/67 97 03/06 2200 63 19 155/60 89 96 03/06 2145 69 20 95 03/06 2130 147/70 100 03/06 2130 65 21 160/61 93 95 03/06 2115 160/75 108 03/06 2115 69 24 93 03/06 2100 70 25 93 03/06 2045 151/71 105 03/06 2045 66 20 163/64 95 96 03/06 2030 156/74 106 03/06 2030 66 20 166/64 96 95 03/06 2015 141/70 100 03/06 2015 66 19 160/62 92 95 03/06 2000 99.0 03/06 2000 Nasal 2 cannula 03/06 2000 144/68 98 03/06 2000 67 22 167/64 145 97 03/06 1945 144/66 95 03/06 1945 68 23 155/59 88 97 03/06 1930 165/79 113 03/06 1930 72 22 104 97 03/06 1922 71 95 03/06 1922 95 Nasal 4 cannula 03/06 1915 166/76 109 03/06 1915 71 24 93 03/06 1900 159/74 107 03/06 1900 72 22 169/58 92 95 03/06 1845 162/66 105 03/06 1845 99.7 73 23 172/60 94 96 03/06 1839 167/74 107 03/06 1839 99.5 74 23 172/59 93 95 03/06 1815 152/70 101 03/06 1815 99.5 72 24 155/52 84 96 03/06 1800 140/63 90 03/06 1800 99.3 75 24 156/53 84 95 03/06 1745 149/67 95 03/06 1745 99.3 70 25 151/51 79 98 03/06 1730 131/62 89 03/06 1730 99.1 71 25 138/47 74 96 03/06 1715 156/70 100 03/06 1715 99.1 70 26 149/52 80 96 03/06 1700 179/63 106 03/06 1700 99.1 74 24 153/53 82 95 / 1645 169/74 107 03/06 1645 99.1 74 24 164/60 92 97 06 1630 134/62 92 03/06 1630 99.3 66 18 130/49 73 98 06/ 1615 144/69 98 06/ 1615 99.3 68 17 151/55 83 98 06/ 1600 146/66 98 06/ 1600 99.3 68 19 148/55 82 98 06 1545 150/71 102 06 1545 99.3 71 19 162/58 89 98 06/ 1530 152/72 103 06 1530 99.5 71 16 162/58 88 99 06 1515 146/69 100 06 1515 99.5 68 18 152/55 84 99 03/06 1500 149/72 102 06 1500 99.5 75 24 160/58 88 96 03/06 1445 141/72 100 06 1445 99.5 73 25 152/55 84 97 03/06 1430 165/74 107 03/06 1430 99.5 77 21 162/58 89 95 03/06 1415 148/66 95 03/06 1415 99.5 79 15 139/57 84 92 03/06 1400 136/64 92 03/06 1400 99.5 79 23 151/55 84 93 03/06 1345 142/67 96 03/06 1345 99.5 76 20 147/51 79 96 03/06 1330 144/61 95 03/06 1330 99.5 80 25 149/52 81 95 03/06 1315 146/66 95 03/06 1315 99.3 82 21 152/53 82 94 06/ 1300 131/63 91 03/06 1300 99.3 84 19 126/52 76 93 / 1245 141/69 95 03/06 1245 99.3 80 20 151/53 81 97 03/06 1230 137/65 93 03/06 1230 99.3 85 24 143/57 85 94 06/ 1215 148/70 101 03/06 1215 99.3 83 24 166/61 93 94 06/ 1200 152/66 95 06 1200 99.1 81 24 148/52 82 96 06/ 1145 124/59 85 03/06 1145 99.1 87 26 136/53 79 92 06/ 1130 126/58 83 03/06 1130 99.1 89 19 144/57 84 94 03/06 1128 94 High flow 3 nasal cannula 03/06 1115 135/65 93 03/06 1115 99.0 93 14 148/54 83 94 03/06 1100 132/60 87 03/06 1100 99.1 87 15 139/52 78 94 03/06 1046 100/53 74 03/06 1046 99.1 78 27 103/46 63 96 03/06 1030 106/51 74 03/06 1030 99.1 80 16 130/48 73 96 03/06 1015 132/60 87 03/06 1015 99.1 80 19 142/52 80 97 03/06 1000 118/59 80 03/06 1000 99.3 82 25 124/46 70 96 03/06 0946 103/58 71 03/06 0946 99.3 85 30 109/46 65 95 03/06 0941 90/51 65 03/06 0941 99.3 85 31 109/43 64 98 03/06 0900 101/58 71 03/06 0900 99.0 123 26 106/50 67 94 03/06 0830 132/62 89 03/06 0830 98.6 82 21 149/58 85 96 03/06 0815 118/56 81 03/06 0815 98.8 130 22 117/55 74 94 03/06 0801 122/66 84 03/06 0801 98.6 140 0 121/62 80 99 03/06 0800 Nasal 4 cannula 03/06 0752 96 Nasal 3 cannula 03/06 0730 119/57 82 03/06 0730 98.6 83 14 137/57 81 94 03/06 0700 123/62 86 03/06 0700 98.6 131 27 144/65 88 94 PATIENT WEIGHT: Weight (lb): 200Weight (oz): 6.4Weight (kg): 90.900 Medications:Active Meds + DC'd Last 24 HrsIpratropium Green[place] (ATROVENT) 500 MCG RTQ2H PRN PRN INH Cyanocobalamin (Vitamin B-12 500 mcg tab) 500 MCG DAILY PO Ferrous Sulfate (FERROUS SULFATE) 325 MG DAILY PO Methylprednisolone Sodium Succinate (Solu-Medrol 40 MG Vial) 20 MG Q12H IV Calcium Carbonate (TUMS CHEW TAB) 1,000 MG Q6H PRN PRN PO Potassium Chloride (POTASSIUM CHLORIDE 20MEQ TAB.ER) 20 MEQ STAT STA PO (DC) Perflutren Protein Type A Microsphe (OPTISON 3ML VIAL) 0 .STK-MED ONE IV (DC) Bisacodyl (DULCOLAX) 10 MG ONCE PRN RECTAL Magnesium Hydroxide (MILK OF MAGNESIA) 30 ML ONCE PRN PO (DC) Amiodarone HCl (CORDARONE) 400 MG TID PO (CKD) Atorvastatin Calcium (LIPITOR) 40 MG 2100 PO Sodium Chloride (SODIUM CHLORIDE 0.9%) 1,000 ML .[id number] IV (DC) Budesonide (PULMICORT RESPULES) 0.5 MG RTBID INH Formoterol Fumarate (PERFOROMIST) 20 MCG RTBID NEB Methylprednisolone Sodium Succinate (Solu-Medrol 40 MG Vial) 40 MG Q12H IV (DC) Sterile Water (WATER FOR INJECTION) 1 ML ASDIR PRN IV Tamsulosin HCl (Flomax 0.4 mg) 0.8 MG PC BK PO Dopamine HCl/Dextrose (DOPamine 400MG/D5W 250ML) 250 ML ASDIR IV (DC) Clopidogrel Bisulfate (Plavix) 75 MG DAILY PO Mupirocin (BACTROBAN 2% 22 GM OINTMENT) 1 APPLIC BID NASAL Polyethylene Glycol (MIRALAX) 17 GM DAILY PO Amiodarone HCl (AMIODARONE HCL) 450 MG ASDIR IV (CKD) Dextrose/Water (D5%W NON-DEHP) 250 MLPantoprazole (PROTONIX) 40 MG DAILY@0600 PO Aspirin (ASPIRIN) 81 MG DAILY PO Amiodarone HCl (CORDARONE) 200 MG TID PO (DC) Docusate Sodium (COLACE) 100 MG BID PO Metoprolol Tartrate (LOPRESSOR) 12.5 MG Q12HR PO Sennosides (Senna Lax 8.6 MG TABLET) 17.2 MG BEDTIME PO Ipratropium [place] (ATROVENT) 500 MCG RTQ4H INH Acetaminophen (TYLENOL) 650 MG Q4H PRN PRN PO Acetaminophen (TYLENOL) 650 MG Q4H PRN PRN RECTAL Calcium Chloride (CALCIUM CHLORIDE) 1 GM ASDIR PRN IV Dextrose/Water (DEXTROSE 10% IN WATER) 125 ML ASDIR PRN IV (CKD) Dextrose/Water (DEXTROSE 10% IN WATER) 250 ML ASDIR PRN IV (CKD) Epinephrine (ADRENALIN CHLORIDE) 4 MG ASDIR IV Dextrose/Water (DEXTROSE 5% WATER) 246 MLGlucagon (GLUCAGON) 1 MG ASDIR PRN IM Insulin Human Regular (HumuLIN R) 100 UNIT ASDIR IV (CKD) Sodium Chloride (SODIUM CHLORIDE 0.9%) 99 MLMagnesium Sulfate (MAGNESIUM SULFATE 4GM/SWFI 100ML) 100 ML ASDIR PRN IV Magnesium Sulfate (MAGNESIUM SULFATE 2GM/SWFI 50ML) 50 ML ASDIR PRN IV Magnesium Sulfate/Dextrose (MAGNESIUM SULFATE 1GM/D5W 100ML) 100 ML ASDIR PRN IV Nitroglycerin/Dextrose (NITROGLYCERIN 50,000MCG/D5W 250ML) 250 ML ASDIR IV Norepinephrine Bitartrate (NOREPINEPHRINE 8 MG/NS 250 ML) 250 ML TITRATE IV Ondansetron HCl (ZOFRAN) 4 MG Q6H PRN PRN IV Potassium Chloride (KCL 20MEQ/SWFI 100ML) 100 ML ASDIR PRN IV Sodium Bicarbonate (SODIUM BICARBONATE) 50 MEQ ASDIR PRN IV Sodium Chloride (SODIUM CHLORIDE 0.9%) 250 ML Q24H IV (DC) Physical ExamGeneral appearance: alert, awakeNeck: full range of motion, non-tender, normal thyroid, supple/no meningismus, no bruit/NL carotids, no JVD, no lymphadenopathy, no masses or swellingCardiovascular: CV assessment: regular rate and rhythmRespiratory: decreased breath sounds, clear to auscultationAbdomen: non-tender, normal bowel sounds, no distention, no guarding, no mass/organomegaly, no pulsatile mass, no reboundUpper extremity: UE assessment: normal capillary refill, no edemaLower extremity: LE assessment: normal capillary refill, no edema ResultsFindings/Data:Laboratory Tests 03/07 03/06 03/06 03/06 0236 2107 1607 1039 Blood Gas Puncture Site Art Line Art Line Art Line Art Line O2 Saturation (90 - 100 %) 94.9 94.5 97.8 95.4 ABG pH (7.35 - 7.45) 7.361 7.385 7.331 L 7.320 L ABG pCO2 (35.0 - 45 mmHg) 49.1 H 44.2 51.3 *H 51.3 *H ABG pO2 (80 - 100.0 mmHg) 79.1 L 75.5 L 112.0 H 86.5 ABG HCO3 (22.0 - 26.0 MMOL/L) 27.8 H 26.4 H 27.0 H 26.3 H ABG Total CO2 29.3 27.7 28.5 27.9 ABG Base Excess (-4.0 - 4.0 MMOL/L) 2.3 1.4 1.2 0.3 ABG Hematocrit (37.5 - 50.7 %) 32 L 31 L 29 L 25 L ABG Hemoglobin (12.5 - 16.9 G/DL) 10.7 L 10.5 L 10.0 L 8.6 L Shayla Test Positive Positive Sodium (134 - 147 mmol/L) 146 145 144 144 Potassium (3.4 - 5.0 mmol/L) 4.4 4.6 3.8 3.9 Chloride (100 - 108 mmol/L) 109 H 108 109 H 110 H Ionized Calcium (1.12 - 1.32 MMOL/L) 1.21 1.18 1.18 1.16 Lactic Acid (0.9 - 1.7 mmol/l) 0.4 L 0.7 L Temperature (F) 99 99.3 99.1 O2 Delivery Device HFNC Cannula Cannula Cannula Laboratory Tests 03/07 03/07 03/07 03/06 03/06 0236 0231 0114 2305 2107 Chemistry Sodium (134 - 147 mEq/L) 144 Potassium (3.4 - 5.0 mEq/L) 4.3 Chloride (100 - 108 mEq/L) 110 H Carbon Dioxide (21 - 33 mEq/l) 28 Anion Gap (0 - 20) 11 BUN (7 - 18 mg/dL) 56 H Creatinine (0.6 - 1.3 mg/dL) 2.9 H POC Creatinine (0.8 - 1.3 mg/dL) 3.3 H 3.8 H Glomerular Filtr Rate (70 - 80) 22.4 L Glucose (70 - 110 mg/dL) 157 H POC Glucose (70 - 110 MG/DL) 134 H 181 H POC Glucose (mg/dL) (70 - 110 MG/DL) 128 H 213 H Calcium (8.0 - 10.5 mg/dL) 8.6 Magnesium (1.80 - 2.40 mg/dL) 2.71 H Total Bilirubin (0.0 - 1.0 mg/dL) 0.40 Direct Bilirubin (0.0 - 0.30 MG/DL) 0.20 Indirect Bilirubin (MG/DL) 0.20 AST (15 - 37 IUnit/L) 26 ALT (30 - 65 IUnit/L) 17 L Total Alk Phosphatase (20 - 125 IUnit/L) 41 Total Protein (6.4 - 8.2 g/dL) 5.7 L Albumin (3.4 - 5.0 g/dL) 3.40 03/06 1607 1351 1205 1039 Chemistry Sodium (134 - 147 mEq/L) 145 Potassium (3.4 - 5.0 mEq/L) 4.4 Chloride (100 - 108 mEq/L) 110 H Carbon Dioxide (21 - 33 mEq/l) 27 Anion Gap (0 - 20) 13 BUN (7 - 18 mg/dL) 58 H Creatinine (0.6 - 1.3 mg/dL) 3.0 H POC Creatinine (0.8 - 1.3 mg/dL) 3.3 H 3.7 H Glomerular Filtr Rate (70 - 80) 21.5 L Glucose (70 - 110 mg/dL) 231 H POC Glucose (70 - 110 MG/DL) 176 H 152 H POC Glucose (mg/dL) (70 - 110 MG/DL) 131 H 146 H Calcium (8.0 - 10.5 mg/dL) 8.4 Magnesium (1.80 - 2.40 mg/dL) 2.53 H 03/06 0836 Chemistry POC Glucose (70 - 110 MG/DL) 130 H Laboratory Tests 03/07 03/06 0231 1606 Hematology WBC (4.5 - 11.0 x10 3/uL) 7.8 7.7 RBC (4.00 - 5.60 x10 6/uL) 3.42 L 3.30 L Hgb (12.5 - 16.9 g/dL) 10.1 L 10.1 L Hct (37.5 - 50.7 %) 31.4 L 30.3 L MCV (81.0 - 99.0 fL) 91.8 91.8 MCH (27.0 - 33.0 pg) 29.5 30.6 MCHC (33.0 - 37.0 g/dL) 32.2 L 33.3 RDW (11.5 - 14.5 %) 17.1 H 17.2 H Plt Count (150 - 400 x10 3/uL) 103 L 97 L MPV (7.0 - 9.0 fL) 10.8 H 11.1 H Neut % (Auto) (56.0 - 77.0 %) 89.8 H 91.1 H Lymph % (Auto) (14.0 - 32.0 %) 2.7 L 2.7 L [place] % (Auto) (4.8 - 9.0 %) 6.7 5.2 Eos % (Auto) (0.3 - 3.7 %) 0.0 L 0.0 L Baso % (Auto) (0.0 - 2.0 %) 0.0 0.1 Neut # (Auto) (2.0 - 7.6 x10 3/uL) 6.96 7.00 Lymph # (Auto) (1.0 - 3.8 x10 3/uL) 0.21 L 0.21 L [place] # (Auto) (0.1 - 0.8 x10 3/uL) 0.52 0.40 Eos # (Auto) (0.0 - 0.2 x10 3/uL) 0.00 0.00 Baso # (Auto) (0.0 - 0.2 x10 3/uL) 0.00 0.01 Abs Immat Gran (auto) (0.00 - 0.03 x10 3/uL) 0.06 H 0.07 H Add Manual Diff NO NO Immature Gran % (0.0 - 2.0 %) 0.8 0.9 Nucleated RBC % (0 - 0 %) 0.0 0.0 Nucleated RBCs # (Man) (0.0 - 0.1 x10 3/uL) 0.00 0.00 Laboratory Tests 03/07 03/06 0235 Chemistry Magnesium (1.80 - 2.40 mg/dL) 2.71 H 2.53 H Diagnosis, Assessment PlanConsultants: anesthesiology, cardiology, cardiovascular surgery, critical/osteopathy doctor, hospitalist Free Text DxA P NotesFree Text DxA P Notes:1- Severe COPD with exacerbation: As per Pulm2- Recent pulmonary embolism on Eliquis3- NSTEMI/Multivessel coronary artery disease: S/P CBBG, extubated and doing fair5- Hypertension" Will add Norvasc 5mg and increase Metoprolol to 25 BID6- History of tobacco use7. Wide complex tachy: Asymptomatic and suggests AFIB/SVT with aberrancy. Respomded to bolus of IV Amio. will increase po amio8. Acute on chronic renal failure at 0654 RPT #:[id number] OF REPORTPRProgress [id number]:50:00G.[id number] able for patient nediSFZESDKFQRWPMP6014-54-29H93:54:56 [facility] 2023-03-06 18:26:00 [id number]/rNwIO0JX7ZfJMU5MEPI1 d5iKp+d82Y5gqS+DSZ31vdJyeZC1891-53-73I31:26:00 [facility] ([facility])Pulmonology Progress NoteREPORT#:[id number] REPORT STATUS: SignedDATE:03/06/23 TIME: 1825 PATIENT: TEVIN NYE UNIT #: [id number]#: [id number] [address] [birth year] AGE: 72 SEX: M ATTEND: Luci Villeda [facility] AUTHOR: Sharmila Alan * ALL edits or amendments must be made on the electronic/computer document * SubjectiveComments:On NC, feels better, no distress ROSAll systems rev neg: except as marked Objective GeneralVS/I O:Last Documented: Result Date Time B/P 134/62 03/06 1630 B/P Mean 92 03/06 1630 Pulse Ox 98 03/06 1630 Temp 37.4 03/06 1630 Pulse 66 03/06 1630 Resp 18 03/06 1630 O2 Delivery High flow nasal cannula 03/06 1128 O2 Flow Rate 3 03/06 1128 FiO2 60 03/05 2000 24 hour I O ending at 0700: 03/06 0700 03/05 1900 Intake Total 2388.00 969.00 Output Total 255 595 Balance 2133.00 374.00 Intake, IV 1558.00 769.00 Intake, Oral 480 200 Intake, 350 Packed Cells Output, Chest 250 Tube Drainage Output, Urine 255 345 Patient 89.9 kg Weight Weight Bed scale Measurement Method PATIENT WEIGHT: Weight (lb): 198Weight (oz): 3.13Weight (kg): 89.811 Medications:Active Meds + DC'd Last 24 HrsIpratropium [place] (ATROVENT) 500 MCG RTQ2H PRN PRN INH Cyanocobalamin (Vitamin B-12 500 mcg tab) 500 MCG DAILY PO Ferrous Sulfate (FERROUS SULFATE) 325 MG DAILY PO Methylprednisolone Sodium Succinate (Solu-Medrol 40 MG Vial) 20 MG Q12H IV (UNV) Potassium Chloride (POTASSIUM CHLORIDE 20MEQ TAB.ER) 20 MEQ STAT STA PO (DC) Perflutren Protein Type A Microsphe (OPTISON 3ML VIAL) 0 .STK-MED ONE IV (DC) Bisacodyl (DULCOLAX) 10 MG ONCE PRN RECTAL Magnesium Hydroxide (MILK OF MAGNESIA) 30 ML ONCE PRN PO Amiodarone HCl (CORDARONE) 400 MG TID PO (CKD) Albumin Human (ALBUMINAR 5% 12.5GM/250ML) 250 ML Q30M IV (DC) Calcium Gluconate (Calcium Gluconate 1 GM/NS 50 mL (B2)) 50 ML ONCE ONE IV (DC) Atorvastatin Calcium (LIPITOR) 40 MG 2100 PO Amiodarone HCl (NEXTERONE 150MG/D5W 100ML) 100 ML .STK-MED ONE IV (DC) Amiodarone HCl (NEXTERONE 150MG/D5W 100ML) 100 ML STAT STA IV (DC) Sodium Chloride (SODIUM CHLORIDE 0.9%) 1,000 ML .[id number] IV (DC) Budesonide (PULMICORT RESPULES) 0.5 MG RTBID INH Formoterol Fumarate (PERFOROMIST) 20 MCG RTBID NEB Methylprednisolone Sodium Succinate (Solu-Medrol 40 MG Vial) 40 MG Q12H IV (DCr) Sterile Water (WATER FOR INJECTION) 1 ML ASDIR PRN IV Tamsulosin HCl (Flomax 0.4 mg) 0.8 MG PC BK PO Dopamine HCl/Dextrose (DOPamine 400MG/D5W 250ML) 250 ML ASDIR IV (DC) Clopidogrel Bisulfate (Plavix) 75 MG DAILY PO Mupirocin (BACTROBAN 2% 22 GM OINTMENT) 1 APPLIC BID NASAL Polyethylene Glycol (MIRALAX) 17 GM DAILY PO Amiodarone HCl (AMIODARONE HCL) 450 MG ASDIR IV (CKD) Dextrose/Water (D5%W NON-DEHP) 250 MLPantoprazole (PROTONIX) 40 MG DAILY@0600 PO Aspirin (ASPIRIN) 81 MG DAILY PO Amiodarone HCl (CORDARONE) 200 MG TID PO (DC) Docusate Sodium (COLACE) 100 MG BID PO Metoprolol Tartrate (LOPRESSOR) 12.5 MG Q12HR PO Sennosides (Senna Lax 8.6 MG TABLET) 17.2 MG BEDTIME PO Ipratropium [place] (ATROVENT) 500 MCG RTQ4H INH Acetaminophen (TYLENOL) 650 MG Q4H PRN PRN PO Acetaminophen (TYLENOL) 650 MG Q4H PRN PRN RECTAL Calcium Chloride (CALCIUM CHLORIDE) 1 GM ASDIR PRN IV Dextrose/Water (DEXTROSE 10% IN WATER) 125 ML ASDIR PRN IV (CKD) Dextrose/Water (DEXTROSE 10% IN WATER) 250 ML ASDIR PRN IV (CKD) Epinephrine (ADRENALIN CHLORIDE) 4 MG ASDIR IV Dextrose/Water (DEXTROSE 5% WATER) 246 MLGlucagon (GLUCAGON) 1 MG ASDIR PRN IM Insulin Human Regular (HumuLIN R) 100 UNIT ASDIR IV (CKD) Sodium Chloride (SODIUM CHLORIDE 0.9%) 99 MLMagnesium Sulfate (MAGNESIUM SULFATE 4GM/SWFI 100ML) 100 ML ASDIR PRN IV Magnesium Sulfate (MAGNESIUM SULFATE 2GM/SWFI 50ML) 50 ML ASDIR PRN IV Magnesium Sulfate/Dextrose (MAGNESIUM SULFATE 1GM/D5W 100ML) 100 ML ASDIR PRN IV Nitroglycerin/Dextrose (NITROGLYCERIN 50,000MCG/D5W 250ML) 250 ML ASDIR IV Norepinephrine Bitartrate (NOREPINEPHRINE 8 MG/NS 250 ML) 250 ML TITRATE IV Ondansetron HCl (ZOFRAN) 4 MG Q6H PRN PRN IV Potassium Chloride (KCL 20MEQ/SWFI 100ML) 100 ML ASDIR PRN IV Sodium Bicarbonate (SODIUM BICARBONATE) 50 MEQ ASDIR PRN IV Sodium Chloride (SODIUM CHLORIDE 0.9%) 1,000 ML .Q20H IV (DC) Sodium Chloride (SODIUM CHLORIDE 0.9%) 250 ML Q24H IV (DC) Physical ExamGeneral appearance: alert, awake, oriented, no acute distressHead/eyes: atraumatic, normocephalic, PERRLNeck: supple/no meningismus, no bruit/NL carotids, no JVD, no lymphadenopathyCardiovascular: normal S1/S2, no rub, no gallopRespiratory/chest: decreased breath sounds, prolonged exp phase, wheezing, symmetric expansionAbdomen: soft, normal bowel sounds, no distention, no guardingExtremities: no clubbing, no cyanosisNeuro/SALES ASSISTANT: alert, oriented X 3, no motor deficitsSkin: dry, normal colorPsychiatry: normal affect, no hallucinations ResultsFindings/Data:Laboratory Tests 03/06/23 1606:[Embedded Image Not Available] 03/06/23 0313:[Embedded Image Not Available] 03/06/23 0118:[Embedded Image Not Available] 03/05/23 2334:[Embedded Image Not Available] 03/05/23 2254:[Embedded Image Not Available]Laboratory Tests 03/06 03/06 03/06 03/06 1607 1039 [id number] 0111 Blood Gas Puncture Site Art Line Art Line Art Line Art Line O2 Saturation (90 - 100 %) 97.8 95.4 93.1 99.0 ABG pH (7.35 - 7.45) 7.331 L 7.320 L 7.318 L 7.318 L ABG pCO2 (35.0 - 45 mmHg) 51.3 *H 51.3 *H 52.4 *H 54.4 *H ABG pO2 (80 - 100.0 mmHg) 112.0 H 86.5 74.1 L 147.3 H ABG HCO3 (22.0 - 26.0 MMOL/L) 27.0 H 26.3 H 26.8 H 27.9 H ABG Total CO2 28.5 27.9 28.4 29.5 ABG Base Excess (-4.0 - 4.0 MMOL/L) 1.2 0.3 0.7 1.7 ABG Hematocrit (37.5 - 50.7 %) 29 L 25 L 21 L 18 L ABG Hemoglobin (12.5 - 16.9 G/DL) 10.0 L 8.6 L 7.0 L 6.2 L Sodium (134 - 147 mmol/L) 144 144 145 145 Potassium (3.4 - 5.0 mmol/L) 3.8 3.9 4.0 4.1 Chloride (100 - 108 mmol/L) 109 H 110 H 110 H 109 H Ionized Calcium (1.12 - 1.32 MMOL/L) 1.18 1.16 1.15 1.18 Lactic Acid (0.9 - 1.7 mmol/l) 0.4 L 0.7 L 0.3 L < 0.3 L Temperature (F) 99.3 99.1 O2 Delivery Device Cannula Cannula 2L HFNC 4L HFNC 03/05 03/05 03/05 [id number] 2007 Blood Gas Puncture Site Art Line Art Line O2 Saturation (90 - 100 %) 96.9 96.3 99.7 ABG pH (7.35 - 7.45) 7.354 7.341 L 7.342 L ABG pCO2 (35.0 - 45 mmHg) 49.1 H 54.8 *H 53.0 *H ABG pO2 (80 - 100.0 mmHg) 94.7 91.2 202.6 *H ABG PO2/FiO2 Ratio (mm/Hg) 337.66 ABG HCO3 (22.0 - 26.0 MMOL/L) 27.4 H 29.6 *H 28.7 *H ABG Total CO2 28.9 31.3 30.4 ABG Base Excess (-4.0 - 4.0 MMOL/L) 1.8 3.9 3.0 ABG Hematocrit (37.5 - 50.7 %) 20 L 23 L 22 L ABG Hemoglobin (12.5 - 16.9 G/DL) 6.8 L 7.8 L 7.6 L Sodium (134 - 147 mmol/L) 145 146 146 Potassium (3.4 - 5.0 mmol/L) 3.9 4.2 4.1 Chloride (100 - 108 mmol/L) 110 H 112 H 110 H Ionized Calcium (1.12 - 1.32 MMOL/L) 1.20 1.17 1.15 Lactic Acid (0.9 - 1.7 mmol/l) 0.7 L 0.4 L < 0.3 L O2 Delivery Device 4L HFNC AVAPS FiO2 (%) 60 Laboratory Tests 03/06 03/06 03/06 03/06 03/06 1607 1351 1205 [id number] [id number] Chemistry POC Creatinine (0.8 - 1.3 mg/dL) 3.3 H 3.7 H POC Glucose (70 - 110 MG/DL) 176 H 152 H 130 H POC Glucose (mg/dL) (70 - 110 MG/DL) 131 H 146 H 03/06 03/06 03/06 03/05 03/05 0547 0313 0111 6363 2254Chemistry Sodium (134 - 147 mEq/L) 148 H 147 Potassium (3.4 - 5.0 mEq/L) 4.4 4.4 Chloride (100 - 108 mEq/L) 111 H 110 H Carbon Dioxide (21 - 33 mEq/l) 27 29 Anion Gap (0 - 20) 15 12 BUN (7 - 18 mg/dL) 46 H 44 H Creatinine (0.6 - 1.3 mg/dL) 3.1 H 2.9 H POC Creatinine (0.8 - 1.3 mg/dL) 3.4 H 3.3 H 2.8 H Glomerular Filtr Rate (70 - 80) 20.7 L 22.4 L Glucose (70 - 110 mg/dL) 135 H 158 H POC Glucose (mg/dL) (70 - 110 MG/DL) 128 H 114 H 116 H Calcium (8.0 - 10.5 mg/dL) 9.1 8.8 Phosphorus (2.5 - 4.9 MG/DL) 5.2 H Magnesium (1.80 - 2.40 mg/dL) 2.60 H 2.69 H Total Bilirubin (0.0 - 1.0 mg/dL) 0.30 Direct Bilirubin (0.0 - 0.30 MG/DL) 0.20 Indirect Bilirubin (MG/DL) 0.10 AST (15 - 37 IUnit/L) 30 ALT (30 - 65 IUnit/L) 15 L Total Alk Phosphatase (20 - 125 IUnit/L) 30 Total Protein (6.4 - 8.2 g/dL) 5.4 L Albumin (3.4 - 5.0 g/dL) 3.40 06/03/05 Chemistry POC Creatinine (0.8 - 1.3 mg/dL) 3.0 H 2.0 H POC Glucose (70 - 110 MG/DL) 124 H POC Glucose (mg/dL) (70 - 110 MG/DL) 104 116 H Laboratory Tests 03/06 03/06 03/05 1606 0118 2334 Hematology WBC (4.5 - 11.0 x10 3/uL) 7.7 3.8 L 4.6 RBC (4.00 - 5.60 x10 6/uL) 3.30 L 2.16 L 2.32 L Hgb (12.5 - 16.9 g/dL) 10.1 L 6.6 L 7.2 L Hct (37.5 - 50.7 %) 30.3 L 20.9 L 22.0 L MCV (81.0 - 99.0 fL) 91.8 96.8 94.8 MCH (27.0 - 33.0 pg) 30.6 30.6 31.0 MCHC (33.0 - 37.0 g/dL) 33.3 31.6 L 32.7 L RDW (11.5 - 14.5 %) 17.2 H 17.2 H 17.2 H Plt Count (150 - 400 x10 3/uL) 97 L 77 L 84 L MPV (7.0 - 9.0 fL) 11.1 H 11.4 H 10.9 H Neut % (Auto) (56.0 - 77.0 %) 91.1 H 85.2 H 87.8 H Lymph % (Auto) (14.0 - 32.0 %) 2.7 L 4.2 L 3.2 L [place] % (Auto) (4.8 - 9.0 %) 5.2 9.8 H 8.4 Eos % (Auto) (0.3 - 3.7 %) 0.0 L 0.0 L 0.0 L Baso % (Auto) (0.0 - 2.0 %) 0.1 0.0 0.0 Neut # (Auto) (2.0 - 7.6 x10 3/uL) 7.00 3.22 4.05 Lymph # (Auto) (1.0 - 3.8 x10 3/uL) 0.21 L 0.16 L 0.15 L [place] # (Auto) (0.1 - 0.8 x10 3/uL) 0.40 0.37 0.39 Eos # (Auto) (0.0 - 0.2 x10 3/uL) 0.00 0.00 0.00 Baso # (Auto) (0.0 - 0.2 x10 3/uL) 0.01 0.00 0.00 Abs Immat Gran (auto) (0.00 - 0.03 x10 3/uL) 0.07 H 0.03 0.03 Add Manual Diff NO NO NO Immature Gran % (0.0 - 2.0 %) 0.9 0.8 0.6 Nucleated RBC % (0 - 0 %) 0.0 0.0 0.0 Nucleated RBCs # (Man) (0.0 - 0.1 x10 3/uL) 0.00 0.00 0.00 Laboratory Tests 03/05 1849 Urines Ur Random Creatinine (mg/dL) 53.7 Ur Random Sodium (MEQ/L) 14 Radiology data:Recent Impressions:RADIOLOGY - XR CHEST 1 V 03/06 0639 Report Impression - Status: SIGNED Entered: 03/06/2023 0805 IMPRESSION: 1. Grossly stable exam. 2. Stable small left pneumothorax involving less than 10% volume. Stable left chest tube. Impression By: [email or web address] - Bon Spangler M.D. Results: x-ray personally reviewed Diagnosis, Assessment PlanFree Text A P:1- Acute COPD exacerbation/postop respiratory insufficiency2- Recent pulmonary embolism on Eliquis3- NSTEMI/Multivessel coronary artery disease5- Hypertension6- History of tobacco use7- Obesity8- Acute renal failure9- S/P CABG X4 03/04/23 - BIPAP support as needed,- Taper IV Solu-Medrol 20 mg every 12 hours- Continue Pulmicort Perforomist and Atrovent nebulizers- Chest tubes per CTS- Mucomyst/Hypersal as needed- CTA chest reviewed, no PE, emphysema, small effusions, RLL 1.[address] chest in 6-8 weeks. Patient informed - Monitor renal function, nephrology following- D/W ICC at 1827 RPT #:[id number] OF REPORTPRProgress [id number]:26:00G.[id number] able for patient [id number]:29:04 [facility] 2023-03-06 18:09:00 [id number]+gzP8lHefAvRb 6wGgtI/XoOj14GTQCmhr/U2u2Jb5655-28-68B31:09:00 [facility] ([facility])Cardiothoracic Surgery ProgREPORT#:[id number] REPORT STATUS: SignedDATE:03/06/23 TIME: 1808 PATIENT: TEVIN NYE UNIT #: [id number]#: [id number] [address] AGE: 73 SEX: M ATTEND: Luci Villeda [facility] AUTHOR: Luci Villeda MD * ALL edits or amendments must be made on the electronic/computer document * GeneralPost-op: day 2Status post:03/04/23 CABG x 4 (MCCORMICK-LAD,SVG-Renea, SVG-OM, SVG-PDA) ALAA EVH (LGSV) Posterior pericardiotomy SubjectiveChief complaint:chest pain Follow up CABG Review of SystemsConstitutional:Denies: chills, fatigue, generalized weakness. Skin:Denies: abrasion, bruising, laceration. Allergy/Immun:Denies: allergic reaction, anaphylaxis, rhinorrhea. Eyes:Denies: redness, visual loss/blurred, eye pain. ENT:Denies: ear ringing, throat swelling, toothache. Respiratory:Denies: [place] (dyspnea on exertion), pneumonia, SOB. Cardiovascular:Denies: chest pain, edema, orthopnea. GI:Denies: abdominal pain, anorexia, melena, nausea. :Denies: dysuria, flank pain. Musculoskeletal:Denies: arthritis, extremity pain, lumbar pain. Heme:Denies: adenopathy, bleeding, petechiae. Endocrine:Denies: cold intolerance, polydipsia, weight gain. Neuro:Denies: confusion, dizziness, seizure, syncope. All systems rev neg: except as marked Objective GeneralVS/I OLast Documented: Result Date Time B/P 134/62 03/06 1630 B/P Mean 92 03/06 1630 Pulse Ox 98 03/06 1630 Temp 37.4 03/06 1630 Pulse 66 03/06 1630 Resp 18 03/06 1630 O2 Delivery High flow nasal cannula 03/06 1128 O2 Flow Rate 3 03/06 1128 FiO2 60 03/05 2000 24 hour I O ending at 0700: 03/06 0700 03/05 1900 Intake Total 2388.00 969.00 Output Total 255 595 Balance 2133.00 374.00 Intake, IV 1558.00 769.00 Intake, Oral 480 200 Intake, 350 Packed Cells Output, Chest 250 Tube Drainage Output, Urine 255 345 Patient 89.9 kg Weight Weight Bed scale Measurement Method PATIENT WEIGHT: Weight (lb): 198Weight (oz): 3.13Weight (kg): 89.811 Dietitian Nutrition assessmentThe data set between the solid lines has been imported from the dietitian's assessment. BMI Calculated: 31.0Nutrition related diagnosis: Nutrition diagnosis details: Nutrition problem: Increased nutrient needsNutrition etiology: Acute illnessNutrition signs and symptoms: ESTIMATED NEEDS S/P SURGERYNutrition prescription: 1. RECOMMEND ADVANCE TO A CCD5 CARDIAC DIET APPROPRIATE. 2. PROVIDE GLUCERNA TID WITH MEALS. 3. HEALTHY HEART DIET EDUCATIONPRIOR TO DISCHARGE. 4. MONITOR PO, WT, LABS, BM.Dietitian name: Purvi Garay, DIETAssessment completed: 03/05/23 Physical ExamGeneral appearance: alert, awake, orientedWound/incision: Location:sternal Site condition: dressing clean dry, dressing intactHEENT: anicteric, mucosal membranes moist, pupils reactive to lightNeck: full range of motion, non-tenderCardiovascular: irregular rhythm, normal heart sounds, regular rate rhythmRespiratory: decreased breath sounds, aerating well, symmetric expansionAbdomen: soft, non-tenderGenitourinary: no bladder distentionExtremities: dry, moves allMusculoskeletal: full range of motionNeuro/SALES ASSISTANT: alert, oriented X 3Skin: dry, intactPsychiatry: normal affect, normal mood Current MedicationsMedications:Active Meds + DC'd Last 24 HrsIpratropium [place] (ATROVENT) 500 MCG RTQ2H PRN PRN INH Cyanocobalamin (Vitamin B-12 500 mcg tab) 500 MCG DAILY PO Ferrous Sulfate (FERROUS SULFATE) 325 MG DAILY PO Potassium Chloride (POTASSIUM CHLORIDE 20MEQ TAB.ER) 20 MEQ STAT STA PO (DC) Perflutren Protein Type A Microsphe (OPTISON 3ML VIAL) 0 .STK-MED ONE IV (DC) Bisacodyl (DULCOLAX) 10 MG ONCE PRN RECTAL Magnesium Hydroxide (MILK OF MAGNESIA) 30 ML ONCE PRN PO Amiodarone HCl (CORDARONE) 400 MG TID PO (CKD) Albumin Human (ALBUMINAR 5% 12.5GM/250ML) 250 ML Q30M IV (DC) Calcium Gluconate (Calcium Gluconate 1 GM/NS 50 mL (B2)) 50 ML ONCE ONE IV (DC) Atorvastatin Calcium (LIPITOR) 40 MG 2100 PO Amiodarone HCl (NEXTERONE 150MG/D5W 100ML) 100 ML .STK-MED ONE IV (DC) Amiodarone HCl (NEXTERONE 150MG/D5W 100ML) 100 ML STAT STA IV (DC) Sodium Chloride (SODIUM CHLORIDE 0.9%) 1,000 ML .[id number] IV (DC) Budesonide (PULMICORT RESPULES) 0.5 MG RTBID INH Formoterol Fumarate (PERFOROMIST) 20 MCG RTBID NEB Methylprednisolone Sodium Succinate (Solu-Medrol 40 MG Vial) 40 MG Q12H IV Sterile Water (WATER FOR INJECTION) 1 ML ASDIR PRN IV Tamsulosin HCl (Flomax 0.4 mg) 0.8 MG PC BK PO Dopamine HCl/Dextrose (DOPamine 400MG/D5W 250ML) 250 ML ASDIR IV (DC) Clopidogrel Bisulfate (Plavix) 75 MG DAILY PO Mupirocin (BACTROBAN 2% 22 GM OINTMENT) 1 APPLIC BID NASAL Polyethylene Glycol (MIRALAX) 17 GM DAILY PO Amiodarone HCl (AMIODARONE HCL) 450 MG ASDIR IV (CKD) Dextrose/Water (D5%W NON-DEHP) 250 MLPantoprazole (PROTONIX) 40 MG DAILY@0600 PO Aspirin (ASPIRIN) 81 MG DAILY PO Amiodarone HCl (CORDARONE) 200 MG TID PO (DC) Docusate Sodium (COLACE) 100 MG BID PO Metoprolol Tartrate (LOPRESSOR) 12.5 MG Q12HR PO Sennosides (Senna Lax 8.6 MG TABLET) 17.2 MG BEDTIME PO Ipratropium [place] (ATROVENT) 500 MCG RTQ4H INH Acetaminophen (TYLENOL) 650 MG Q4H PRN PRN PO Acetaminophen (TYLENOL) 650 MG Q4H PRN PRN RECTAL Calcium Chloride (CALCIUM CHLORIDE) 1 GM ASDIR PRN IV Dextrose/Water (DEXTROSE 10% IN WATER) 125 ML ASDIR PRN IV (CKD) Dextrose/Water (DEXTROSE 10% IN WATER) 250 ML ASDIR PRN IV (CKD) Epinephrine (ADRENALIN CHLORIDE) 4 MG ASDIR IV Dextrose/Water (DEXTROSE 5% WATER) 246 MLGlucagon (GLUCAGON) 1 MG ASDIR PRN IM Insulin Human Regular (HumuLIN R) 100 UNIT ASDIR IV (CKD) Sodium Chloride (SODIUM CHLORIDE 0.9%) 99 MLMagnesium Sulfate (MAGNESIUM SULFATE 4GM/SWFI 100ML) 100 ML ASDIR PRN IV Magnesium Sulfate (MAGNESIUM SULFATE 2GM/SWFI 50ML) 50 ML ASDIR PRN IV Magnesium Sulfate/Dextrose (MAGNESIUM SULFATE 1GM/D5W 100ML) 100 ML ASDIR PRN IV Nitroglycerin/Dextrose (NITROGLYCERIN 50,000MCG/D5W 250ML) 250 ML ASDIR IV Norepinephrine Bitartrate (NOREPINEPHRINE 8 MG/NS 250 ML) 250 ML TITRATE IV Ondansetron HCl (ZOFRAN) 4 MG Q6H PRN PRN IV Potassium Chloride (KCL 20MEQ/SWFI 100ML) 100 ML ASDIR PRN IV Sodium Bicarbonate (SODIUM BICARBONATE) 50 MEQ ASDIR PRN IV Sodium Chloride (SODIUM CHLORIDE 0.9%) 1,000 ML .Q20H IV (DC) Sodium Chloride (SODIUM CHLORIDE 0.9%) 250 ML Q24H IV (DC) ResultsFindings/Data:Laboratory Tests 03/06 03/06 03/06 03/06 3567 1039 0547 0111 Blood Gas Puncture Site Art Line Art Line Art Line Art Line O2 Saturation (90 - 100 %) 97.8 95.4 93.1 99.0 ABG pH (7.35 - 7.45) 7.331 L 7.320 L 7.318 L 7.318 L ABG pCO2 (35.0 - 45 mmHg) 51.3 *H 51.3 *H 52.4 *H 54.4 *H ABG pO2 (80 - 100.0 mmHg) 112.0 H 86.5 74.1 L 147.3 H ABG HCO3 (22.0 - 26.0 MMOL/L) 27.0 H 26.3 H 26.8 H 27.9 H ABG Total CO2 28.5 27.9 28.4 29.5 ABG Base Excess (-4.0 - 4.0 MMOL/L) 1.2 0.3 0.7 1.7 ABG Hematocrit (37.5 - 50.7 %) 29 L 25 L 21 L 18 L ABG Hemoglobin (12.5 - 16.9 G/DL) 10.0 L 8.6 L 7.0 L 6.2 L Sodium (134 - 147 mmol/L) 144 144 145 145 Potassium (3.4 - 5.0 mmol/L) 3.8 3.9 4.0 4.1 Chloride (100 - 108 mmol/L) 109 H 110 H 110 H 109 H Ionized Calcium (1.12 - 1.32 MMOL/L) 1.18 1.16 1.15 1.18 Lactic Acid (0.9 - 1.7 mmol/l) 0.4 L 0.7 L 0.3 L < 0.3 L Temperature (F) 99.3 99.1 O2 Delivery Device Cannula Cannula 2L HFNC 4L HFNC 03/05 03/05 03/05 6857 6127 2007 Blood Gas Puncture Site Art Line Art Line O2 Saturation (90 - 100 %) 96.9 96.3 99.7 ABG pH (7.35 - 7.45) 7.354 7.341 L 7.342 L ABG pCO2 (35.0 - 45 mmHg) 49.1 H 54.8 *H 53.0 *H ABG pO2 (80 - 100.0 mmHg) 94.7 91.2 202.6 *H ABG PO2/FiO2 Ratio (mm/Hg) 337.66 ABG HCO3 (22.0 - 26.0 MMOL/L) 27.4 H 29.6 *H 28.7 *H ABG Total CO2 28.9 31.3 30.4 ABG Base Excess (-4.0 - 4.0 MMOL/L) 1.8 3.9 3.0 ABG Hematocrit (37.5 - 50.7 %) 20 L 23 L 22 L ABG Hemoglobin (12.5 - 16.9 G/DL) 6.8 L 7.8 L 7.6 L Sodium (134 - 147 mmol/L) 145 146 146 Potassium (3.4 - 5.0 mmol/L) 3.9 4.2 4.1 Chloride (100 - 108 mmol/L) 110 H 112 H 110 H Ionized Calcium (1.12 - 1.32 MMOL/L) 1.20 1.17 1.15 Lactic Acid (0.9 - 1.7 mmol/l) 0.7 L 0.4 L < 0.3 L O2 Delivery Device 4L HFNC AVAPS FiO2 (%) 60 Laboratory Tests 03/06 03/06 03/06 03/06 03/06 1607 1351 1205 1039 0836 Chemistry POC Creatinine (0.8 - 1.3 mg/dL) 3.3 H 3.7 H POC Glucose (70 - 110 MG/DL) 176 H 152 H 130 H POC Glucose (mg/dL) (70 - 110 MG/DL) 131 H 146 H 03/06 03/06 03/06 03/05 03/05 0548 0319 0112 2315 2254Chemistry Sodium (134 - 147 mEq/L) 148 H 147 Potassium (3.4 - 5.0 mEq/L) 4.4 4.4 Chloride (100 - 108 mEq/L) 111 H 110 H Carbon Dioxide (21 - 33 mEq/l) 27 29 Anion Gap (0 - 20) 15 12 BUN (7 - 18 mg/dL) 46 H 44 H Creatinine (0.6 - 1.3 mg/dL) 3.1 H 2.9 H POC Creatinine (0.8 - 1.3 mg/dL) 3.4 H 3.3 H 2.8 H Glomerular Filtr Rate (70 - 80) 20.7 L 22.4 L Glucose (70 - 110 mg/dL) 135 H 158 H POC Glucose (mg/dL) (70 - 110 MG/DL) 128 H 114 H 116 H Calcium (8.0 - 10.5 mg/dL) 9.1 8.8 Phosphorus (2.5 - 4.9 MG/DL) 5.2 H Magnesium (1.80 - 2.40 mg/dL) 2.60 H 2.69 H Total Bilirubin (0.0 - 1.0 mg/dL) 0.30 Direct Bilirubin (0.0 - 0.30 MG/DL) 0.20 Indirect Bilirubin (MG/DL) 0.10 AST (15 - 37 IUnit/L) 30 ALT (30 - 65 IUnit/L) 15 L Total Alk Phosphatase (20 - 125 IUnit/L) 30 Total Protein (6.4 - 8.2 g/dL) 5.4 L Albumin (3.4 - 5.0 g/dL) 3.40 03/055 2007 2006 Chemistry POC Creatinine (0.8 - 1.3 mg/dL) 3.0 H 2.0 H POC Glucose (70 - 110 MG/DL) 124 H POC Glucose (mg/dL) (70 - 110 MG/DL) 104 116 H Laboratory Tests 03/06 03/06 03/05 1606 0118 2334 Hematology WBC (4.5 - 11.0 x10 3/uL) 7.7 3.8 L 4.6 RBC (4.00 - 5.60 x10 6/uL) 3.30 L 2.16 L 2.32 L Hgb (12.5 - 16.9 g/dL) 10.1 L 6.6 L 7.2 L Hct (37.5 - 50.7 %) 30.3 L 20.9 L 22.0 L MCV (81.0 - 99.0 fL) 91.8 96.8 94.8 MCH (27.0 - 33.0 pg) 30.6 30.6 31.0 MCHC (33.0 - 37.0 g/dL) 33.3 31.6 L 32.7 L RDW (11.5 - 14.5 %) 17.2 H 17.2 H 17.2 H Plt Count (150 - 400 x10 3/uL) 97 L 77 L 84 L MPV (7.0 - 9.0 fL) 11.1 H 11.4 H 10.9 H Neut % (Auto) (56.0 - 77.0 %) 91.1 H 85.2 H 87.8 H Lymph % (Auto) (14.0 - 32.0 %) 2.7 L 4.2 L 3.2 L [place] % (Auto) (4.8 - 9.0 %) 5.2 9.8 H 8.4 Eos % (Auto) (0.3 - 3.7 %) 0.0 L 0.0 L 0.0 L Baso % (Auto) (0.0 - 2.0 %) 0.1 0.0 0.0 Neut # (Auto) (2.0 - 7.6 x10 3/uL) 7.00 3.22 4.05 Lymph # (Auto) (1.0 - 3.8 x10 3/uL) 0.21 L 0.16 L 0.15 L [place] # (Auto) (0.1 - 0.8 x10 3/uL) 0.40 0.37 0.39 Eos # (Auto) (0.0 - 0.2 x10 3/uL) 0.00 0.00 0.00 Baso # (Auto) (0.0 - 0.2 x10 3/uL) 0.01 0.00 0.00 Abs Immat Gran (auto) (0.00 - 0.03 x10 3/uL) 0.07 H 0.03 0.03 Add Manual Diff NO NO NO Immature Gran % (0.0 - 2.0 %) 0.9 0.8 0.6 Nucleated RBC % (0 - 0 %) 0.0 0.0 0.0 Nucleated RBCs # (Man) (0.0 - 0.1 x10 3/uL) 0.00 0.00 0.00 Laboratory Tests 03/05 1849 Urines Ur Random Creatinine (mg/dL) 53.7 Ur Random Sodium (MEQ/L) 14 Radiology data:Recent Impressions:RADIOLOGY - XR CHEST 1 V 03/06 0639 Report Impression - Status: SIGNED Entered: 03/06/2023 0805 IMPRESSION: 1. Grossly stable exam. 2. Stable small left pneumothorax involving less than 10% volume. Stable left chest tube. Impression By: [email or web address] - Bon Spangler M.D. Results: labs reviewed, vital signs stable, rythm personally rev'd, x-ray personally reviewed, current med profile rev'd Diagnosis, Assessment PlanHospital course to date:This is a pleasant 72 year old male with past medical history of hypertension, dyslipidemia, DM-2 (on insulin), former smoker (quit 2018), BPH, prostate CA s/pradiation, COPD (uses inhaler at home, no home oxygen), and PE (November 2022 on eliquis) who presented to [facility] with chest pain, dyspnea on exertion, and NSTEMI. Coronary angiogram was done and revealed severe multivessel coronary artery disease. Patient was then transferred to [facility] for CV surgery evaluation and need for CABG. PLAN Admit patient to CVICUInitiate preop workupIncentive spirometer teachingCarotid ultrasoundBLE vein mappingCT chest non-contrastUA to r/o UTIEchocardiogramHeparin and Nitro dripConsult pulmonary, cardiology, and intensivistCoronary angiogram reviewed and patient will benefit from surgical revascularizaton. The surgery, risks involved, STS score, benefits, complications and alternatives were explained to the patient and his brother. He acknowledged understanding and is willing to proceed. We will tentatively schedule him for surgery tomorrow morning.Further recommendations to follow. 03/04/23CABG x 4 (MCCORMICK-LAD,SVG-Renea, SVG-OM, SVG-PDA)ALAAEVH (LGSV)Posterior pericardiotomy 03/05/23POD 1Patient alert, awake, and orientedLabs and CXR reviewedOn bipap 12/5 40%, wean off as toleratedTrend abgsWean off levo as toleratedKeep both chest tubesMonitor strict I Os and renal functionPT/OT, ambulate, OOB in chairDVT ppx with SCDsMonitor patient closely in CVICU 03/06/23POD 2Patient in stable conditionCXR and labs reviewedHGB 6.6, transfuse 2 units PRBCDiscontinue dopamine dripEchocardiogramDiscontinue both chest tubesCR increasing, renal following, UOP 25 cc/hrOOB in chairMonitor closely in CVICU Consultants: anesthesiology, cardiology, cardiovascular surgery, critical/osteopathy doctor, hospitalist at 1731 RPT #:[id number] OF REPORTPRProgress [id number]:09:00G.[id number] able for patient [id number]:32:22 [facility] 2023-03-06 17:47:00 [id number] ci+qcM/J5b9oztOyzH4C+aXRmhsjc /tVENtsf0vYEK74HS4kCJhjQB2M9665-45-00Y98:47:21331 9-[address] [place] [address] PATIENT NAME: TEVIN NYE ADMIT DATE: 03/03/23ACCOUNT NO: [id number] ROOM NO: [facility] AGE: 72 REPORT TYPE: eECHOCARDIOGRAM REPORT SEX: M ADMITTING PHYSICIAN:Luci Villeda MD ATTENDING PHYSICIAN:Luci Villeda MD *[place], [place] [address]Phone: Hli: [phone] Transthoracic Echocardiogram Patient: Tevin NyeStudy Date: 03/06/2023 BP: 162 / 58 Location: RAQUELRN: [id number] : 1950 Age: 72 Height: 67 in / 170.2 cmAccession#: [id number] Gender: M Weight: 197.6 lb / 89.8 kgBMI/BSA: 31 kg/m 2 / 2.01 m 2 *Ordering Physician: * Luci Villeda MD *Interpreting Physician: * Anuj Sylvester MD*Financial Cost Analyst: * Tori Gunn Indications: Evaluation post CABG. Study data: Transthoracic echocardiogram. Procedure: Transthoracicechocardiography was performed. Image quality was adequate. Intravenouscontrast (Optison) was administered. Complete 2D, complete spectralDoppler, and color Doppler. Location: CVICU. Patient status:Inpatient. Patient room number: 2201. Study status: Routine. Rhythm:Normal sinus rhythm. Findings Left ventricle: The cavity size is normal. Wall thickness is normal.Systolic function is normal. The estimated ejection fraction is 60-64%.The tissue Doppler parameters are abnormal. Left ventricular diastolicfunction parameters are indeterminate.Right ventricle: Estimated TAPSE is 2.2 cm. The cavity size is normal.PATIENT NAME: TEVIN NYE Systolic function is normal.Left atrium: The atrium is normal in size.Right atrium: The atrium is normal in size.Aorta: Aortic root: The aortic root is normal in size.Aortic valve: The valve is structurally normal. The valve istrileaflet. There is no evidence of stenosis. There is noregurgitation.Mitral valve: The valve is structurally normal. There is noevidence of stenosis. There is trivial regurgitation.Tricuspid valve: The valve is structurally normal. There is trivialregurgitation.Pulmonic valve: Not visualized. There is no regurgitation.Pericardium: A trivial pericardial effusion is identified anterior tothe heart.Pulmonary arteries:Main pulmonary artery: The artery is of normal size.Systemic veins:Inferior vena cava: The vessel is dilated. The respirophasic diameterchanges are in the normal range (= 50%). Inferior vena cava diameter is2.1 cm. Measurements Left ventricle Value 03/04/2023 Ref PHIL, LAX 5.2 cm 5.4 4.2 - 5.8 ESD, LAX 3.5 cm 3.5 2.5 - 4.0 ESD/bsa, 1.8 cm/m 2 1.8 1.3 LAX - 2.1 FS, LAX 32 % 35 25 - 43 ESD/bsa 3.7 cm/m 2 3.9 ---- major ax, A4C PHIL/bsa 3.7 cm/m 2 3.9 ---- minor ax, A4C PHIL major 8.3 cm 8.5 ---- ax, A2C ESD major 7.2 cm 7.7 ---- ax, A2C PHIL/bsa 4.1 cm/m 2 4.4 ---- major ax, A2C ESD/bsa 3.6 cm/m 2 3.9 ---- major ax, A2C PW, ED 0.8 cm 1.0 0.6 -PATIENT NAME: TEVIN NYE 1.0 IVS/PW, ED 0.57 1.01 ---- EF 60 % 63 52 - 72 E', lat 5.7 cm/sec 7.9 >=10 mercedes, TDI .0 E/e', lat 21 10 ---- mercedes, TDI E', med 6.7 cm/sec 6.9 >=7. mercedes, TDI 0 E/e', med 18 11 ---- mercedes, TDI E', avg, 6.2 cm/sec 7.4 ---- TDI E/e', avg, 19 11 <=14 TDI LVOT Value 03/04/2023 Ref Diam, S 2.13 cm 1.99 ---- Area 3.5 cm 2 3.1 ---- Peak kirby, 0.84 m/sec 0.88 ---- S Mean kirby, 0.66 m/sec 0.63 ---- S VTI, S 18.4 cm 19.9 ---- Peak grad, 3 mm Hg 3 ---- S Mean grad, 2 mm Hg 2 ---- S SV 65 ml 62 ---- Qs 5.32 L/min 4.94 ---- Qs/bsa 2.6 L/(min-m 2) 2.5 ---- SV/bsa 32 ml/m 2 32 ---- Ventricular septum Value 03/04/2023 Ref IVS, ED 0.5 cm 1.0 0.6 - 1.0 Right ventricle Value 03/04/2023 Ref PHIL, LAX 1.8 cm 3.0 ---- TAPSE, MM 2.2 cm 2.8 1.7 - 3.1 S' lateral 14.7 cm/sec 6.0 - 13.4 Left atrium Value 03/04/2023 Ref AP dim, ES 3.10 cm 3.77 3.00 - 4.00 Vol/bsa, 20 ml/m 2 15 12 - ES, 1-p 37PATIENT NAME: TEVIN NYE A4C Vol, ES, 50 ml 42 ---- 2-p Vol/bsa, 25 ml/m 2 21 16 - ES, 2-p 34 Vol/bsa, 21 ml/m 2 17 16 - ES, A/L 34 Right atrium Value 03/04/2023 Ref Area, ES 13 cm 2 14 10 - 18 SI dim, 4.6 cm 4.7 3.4 ES, A4C - 5.3 SI 2.3 cm/m 2 2.4 1.8 dim/bsa, - ES, A4C 3.0 Vol, ES, 31 ml 36 ---- A/L Vol, ES, 29 ml 35 ---- 1-p A4C Vol/bsa, 15 ml/m 2 18 11 - ES, 1-p 39 A4C Aortic valve Value 03/04/2023 Ref Peak v, S 1.22 m/sec 1.1 ---- Mean v, S 0.85 m/sec 0.84 ---- VTI, S 24.4 cm 24.2 ---- Mean grad, 3.2 mm Hg 3.0 ---- S Peak grad, 5.9 mm Hg 4.9 ---- S LVOT/AV, 0.75 0.82 ---- VTI ratio MEL, VTI 2.68 cm 2 2.55 ---- LVOT/AV, 0.69 0.8 ---- Vpeak ratio MEL, Vmax 2.44 cm 2 2.48 ---- Mitral valve Value 03/04/2023 Ref Peak E 0.06 m/sec 0.07 ---- Peak A 0.64 m/sec 1.2 ---- Mean v, D 0.8 m/sec 0.83 ---- VTI 28.9 cm 34.1 ---- leaflet coapt Decel time 168 ms 251 ---- PHT 82 ms 82 ---- Mean grad, 2.9 mm Hg 2.9 ---- D Peak grad, 5.9 mm Hg 6.1 ---- DPATIENT NAME: TEVIN NYE Peak E/A 1.84 0.64 ---- ratio MVA, PHT 2.7 cm 2 2.7 ---- MR peak v 1.94 m/sec ---- Pulmonic valve Value 03/04/2023 Ref MN v, ED 0.81 m/sec 0.8 ---- Tricuspid valve Value 03/04/2023 Ref TR peak v 1.5 m/sec 3.07 <=2. 8 Peak RV-RA 9 mm Hg 38 ---- grad, S Conclusions Summary: 1. Left ventricle: The cavity size is normal. Wall thickness is normal. Systolic function is normal. The estimated ejection fraction is 60-64%. Left ventricular diastolic function parameters are indeterminate.2. Mitral valve: There is trivial regurgitation.3. Tricuspid valve: There is trivial regurgitation.4. Pericardium, extracardiac: A trivial pericardial effusion is identified anterior to the heart.5. Inferior vena cava: The vessel is dilated. The respirophasic diameter changes are in the normal range (= 50%). Inferior vena cava diameter is 2.1 cm. Prepared and electronically signed by Anuj Sylvester MD03/06/2023 17:47 at 1747 PATIENT NAME: TEVIN NYE :47:0 0G.[id number] for patient [id number]:48:13 [facility] 2023-03-06 13:27:00 [id number]:27:00 [facility] ([facility])Critical Care Progress NoteREPORT#:[id number] REPORT STATUS: SignedDATE:03/06/23 TIME: 1327 PATIENT: TEVIN NYE UNIT #: [id number]#: [id number] ROOM[address]DOB: [birth year] AGE: 72 SEX: M ATTEND: Luci Villeda [facility] AUTHOR: Dina Mccain MD * ALL edits or amendments must be made on the electronic/computer document * SubjectiveChief complaint: Dyspnea Wheezing Chest pain/Unstable anginaHPI: Tevin Nye is a 72-year-old gentleman with past medical history significant for hypertension, diabetes, dyslipidemia, former smoker quit in 2008, BPH, prostate cancer status postradiation severe COPD, not home oxygen dependent, severe left carotid stenosis, who was admitted to the medical floor with diagnosis of NSTEMI. He was found to have severe multivessel coronary disease on cardiac catheterization. Patient also had shortness of breath and wheezing. He was seen by pulmonology and started on steroid therapy along with nebulizer treatments. Patient underwent elective coronary artery bypass grafting surgery and received 4 jumps along with isolation of left atrial appendage. He came outof the OR with norepinephrine at 4 mcg and epinephrine at 2 mcg. EF was normal. Patient received parasternal block. Intraoperatively he received 1.5 L of crystalloids, 250 mL of Cell Saver, hemoglobin was 8.3 g/dL but on arrival his latest hemoglobin is 6.9 g/dL. Patient has been ordered 2 units of packed red cells. Intra-Op urine output was 425 mL and EBL was 100 mL. Patient received fentanyl and last neuromuscular blockade dose was at 3:15 PM. Patient was givenhydrocortisone 100 mg IV at 2:45 PM for chronic steroid dependence. He is currently on assist-control at 18 tidal volume 480 PEEP of 5 and 50% FiO2 and ismoving tidal volumes at 470+. Vital signs are stable with heart rate 82 sinus rhythm, blood pressure 95/41 mmHg, pulse ox 100% while on 50% FiO2 and respiratory rate is 14. Chest tube output is minimal at 3 mm each. Patient wasordered albumin 25% to 50 mL. Pupils are bilaterally symmetrical and reactive to light measuring 3 mm on each side. Lab work upon arrival in the CVICU room #2201 revealed a potassium of 3.3, glucose 230, creatinine 1.46 mg/dL, hemoglobinof 6.9 g/dL and hematocrit of 20%. Tevin Gonzalez is a 72 y.o. male with PMH of hypertension, dyslipidemia, diabetes, former smoker (quit 2008), BPH, prostate CA s/p radiation, COPD (uses inhaler at home, no home oxygen), and PE (November 2022 on eliquis) who presented to [facility] with chest pain, dyspnea on exertion, and NSTEMI. Coronary angiogram was done and revealed severe multivessel coronary artery disease. Patient was then transferred to [facility] for CV surgery evaluation and need for CABG. on the floor he had chest pain at rest and was transferred to the ICU for nitroglycerin drip and preoperative workup. Also noted to have chest pain - which he states is better and related to when he coughs. Currently without any pain. Patient underwent elective CABG x5 and isolation of left atrial appendage on 03/04/2023. Comments:Interval history- Patient is on dopamine 3 mics. Creatinine continues to worsen. Making urine output about 30 cc/h. Objective GeneralVS/I OLast Documented: Result Date Time B/P 135/65 03/06 1115 B/P Mean 93 03/06 1115 Pulse Ox 94 03/06 1115 Temp 37.2 03/06 1115 Pulse 93 03/06 1115 Resp 14 03/06 1115 O2 Delivery Nasal cannula 03/06 0800 O2 Flow Rate 4 03/06 0800 FiO2 60 03/05 2000 24 hour I O ending at 0700: 03/06 0700 03/05 1900 Intake Total 2388.00 969.00 Output Total 255 595 Balance 2133.00 374.00 Intake, IV 1558.00 769.00 Intake, Oral 480 200 Intake, 350 Packed Cells Output, Chest 250 Tube Drainage Output, Urine 255 345 Patient 89.9 kg Weight Weight Bed scale Measurement Method PATIENT WEIGHT: Weight (lb): 198Weight (oz): 3.13Weight (kg): 89.811 Medications:Active Meds + DC'd Last 24 HrsIpratropium Green[place] (ATROVENT) 500 MCG RTQ2H PRN PRN INH Cyanocobalamin (Vitamin B-12 500 mcg tab) 500 MCG DAILY PO Ferrous Sulfate (FERROUS SULFATE) 325 MG DAILY PO Bisacodyl (DULCOLAX) 10 MG ONCE PRN RECTAL Magnesium Hydroxide (MILK OF MAGNESIA) 30 ML ONCE PRN PO Amiodarone HCl (CORDARONE) 400 MG TID PO (CKD) Albumin Human (ALBUMINAR 5% 12.5GM/250ML) 250 ML Q30M IV (DC) Calcium Gluconate (Calcium Gluconate 1 GM/NS 50 mL (B2)) 50 ML ONCE ONE IV (DC) Atorvastatin Calcium (LIPITOR) 40 MG 2100 PO Amiodarone HCl (NEXTERONE 150MG/D5W 100ML) 100 ML .STK-MED ONE IV (DC) Amiodarone HCl (NEXTERONE 150MG/D5W 100ML) 100 ML STAT STA IV (DC) Sodium Chloride (SODIUM CHLORIDE 0.9%) 1,000 ML .[id number] IV (DC) Acetaminophen (OFIRMEV 10MG/ML) 100 ML ONCE ONE IV (DC) Budesonide (PULMICORT RESPULES) 0.5 MG RTBID INH Formoterol Fumarate (PERFOROMIST) 20 MCG RTBID NEB Methylprednisolone Sodium Succinate (Solu-Medrol 40 MG Vial) 40 MG Q12H IV Sterile Water (WATER FOR INJECTION) 1 ML ASDIR PRN IV Tamsulosin HCl (Flomax 0.4 mg) 0.8 MG PC BK PO Dopamine HCl/Dextrose (DOPamine 400MG/D5W 250ML) 250 ML ASDIR IV (DC) Clopidogrel Bisulfate (Plavix) 75 MG DAILY PO Mupirocin (BACTROBAN 2% 22 GM OINTMENT) 1 APPLIC BID NASAL Polyethylene Glycol (MIRALAX) 17 GM DAILY PO Amiodarone HCl (AMIODARONE HCL) 450 MG ASDIR IV (CKD) Dextrose/Water (D5%W NON-DEHP) 250 MLPantoprazole (PROTONIX) 40 MG DAILY@0600 PO Aspirin (ASPIRIN) 81 MG DAILY PO Amiodarone HCl (CORDARONE) 200 MG TID PO (DC) Docusate Sodium (COLACE) 100 MG BID PO Metoprolol Tartrate (LOPRESSOR) 12.5 MG Q12HR PO Sennosides (Senna Lax 8.6 MG TABLET) 17.2 MG BEDTIME PO Ipratropium [place] (ATROVENT) 500 MCG RTQ4H INH Acetaminophen (TYLENOL) 650 MG Q4H PRN PRN PO Acetaminophen (TYLENOL) 650 MG Q4H PRN PRN RECTAL Albumin Human (ALBUMINAR 25%) 25 GM ASDIR PRN IV (DC) Calcium Chloride (CALCIUM CHLORIDE) 1 GM ASDIR PRN IV Dextrose/Water (DEXTROSE 10% IN WATER) 125 ML ASDIR PRN IV (CKD) Dextrose/Water (DEXTROSE 10% IN WATER) 250 ML ASDIR PRN IV (CKD) Epinephrine (ADRENALIN CHLORIDE) 4 MG ASDIR IV Dextrose/Water (DEXTROSE 5% WATER) 246 MLGlucagon (GLUCAGON) 1 MG ASDIR PRN IM Insulin Human Regular (HumuLIN R) 100 UNIT ASDIR IV (CKD) Sodium Chloride (SODIUM CHLORIDE 0.9%) 99 MLMagnesium Sulfate (MAGNESIUM SULFATE 4GM/SWFI 100ML) 100 ML ASDIR PRN IV Magnesium Sulfate (MAGNESIUM SULFATE 2GM/SWFI 50ML) 50 ML ASDIR PRN IV Magnesium Sulfate/Dextrose (MAGNESIUM SULFATE 1GM/D5W 100ML) 100 ML ASDIR PRN IV Nitroglycerin/Dextrose (NITROGLYCERIN 50,000MCG/D5W 250ML) 250 ML ASDIR IV Norepinephrine Bitartrate (NOREPINEPHRINE 8 MG/NS 250 ML) 250 ML TITRATE IV Ondansetron HCl (ZOFRAN) 4 MG Q6H PRN PRN IV Potassium Chloride (KCL 20MEQ/SWFI 100ML) 100 ML ASDIR PRN IV Sodium Bicarbonate (SODIUM BICARBONATE) 50 MEQ ASDIR PRN IV Sodium Chloride (SODIUM CHLORIDE 0.9%) 1,000 ML .Q20H IV (DC) Sodium Chloride (SODIUM CHLORIDE 0.9%) 250 ML Q24H IV (DC) Physical ExamHead/eyes: EOMI, PERRLCardiovascular: normal capillary refill, normal heart sounds, regular rate and rhythm, normal S1/Y9Qkkrkdlwpok: aerating well, clear to auscultation, symmetric expansionAbdomen: soft, non-tenderGenitourinary: urinary catheter, no bladder distentionExtremities: no clubbing, no cyanosis, no edemaSkin: abnormal temperature, dry, no rashPsychiatry: unable to evaluate ResultsFindings/data:Laboratory Tests 03/06 03/06 03/06 03/05 1039 0547 0111 5752 Blood Gas Puncture Site Art Line Art Line Art Line Art Line O2 Saturation (90 - 100 %) 95.4 93.1 99.0 96.9 ABG pH (7.35 - 7.45) 7.320 L 7.318 L 7.318 L 7.354 ABG pCO2 (35.0 - 45 mmHg) 51.3 *H 52.4 *H 54.4 *H 49.1 H ABG pO2 (80 - 100.0 mmHg) 86.5 74.1 L 147.3 H 94.7 ABG HCO3 (22.0 - 26.0 MMOL/L) 26.3 H 26.8 H 27.9 H 27.4 H ABG Total CO2 27.9 28.4 29.5 28.9 ABG Base Excess (-4.0 - 4.0 MMOL/L) 0.3 0.7 1.7 1.8 ABG Hematocrit (37.5 - 50.7 %) 25 L 21 L 18 L 20 L ABG Hemoglobin (12.5 - 16.9 G/DL) 8.6 L 7.0 L 6.2 L 6.8 L Sodium (134 - 147 mmol/L) 144 145 145 145 Potassium (3.4 - 5.0 mmol/L) 3.9 4.0 4.1 3.9 Chloride (100 - 108 mmol/L) 110 H 110 H 109 H 110 H Ionized Calcium (1.12 - 1.32 MMOL/L) 1.16 1.15 1.18 1.20 Lactic Acid (0.9 - 1.7 mmol/l) 0.7 L 0.3 L < 0.3 L 0.7 L Temperature (F) 99.1 O2 Delivery Device Cannula 2L HFNC 4L HFNC 4L HFNC 03/05 1750 1543 Blood Gas Puncture Site Art Line Art Line Art Line O2 Saturation (90 - 100 %) 96.3 99.7 95.5 97.4 ABG pH (7.35 - 7.45) 7.341 L 7.342 L 7.339 L 7.275 *L ABG pCO2 (35.0 - 45 mmHg) 54.8 *H 53.0 *H 55.2 *H 62.7 *H ABG pO2 (80 - 100.0 mmHg) 91.2 202.6 *H 85.1 110.1 H ABG PO2/FiO2 Ratio (mm/Hg) 337.66 141.80 ABG HCO3 (22.0 - 26.0 MMOL/L) 29.6 *H 28.7 *H 29.7 *H 29.1 *H ABG Total CO2 31.3 30.4 31.4 31.0 ABG Base Excess (-4.0 - 4.0 MMOL/L) 3.9 3.0 4.0 2.3 ABG Hematocrit (37.5 - 50.7 %) 23 L 22 L 24 L 25 L ABG Hemoglobin (12.5 - 16.9 G/DL) 7.8 L 7.6 L 8.3 L 8.4 L Shayla Test N/A Sodium (134 - 147 mmol/L) 146 146 144 145 Potassium (3.4 - 5.0 mmol/L) 4.2 4.1 4.2 4.4 Chloride (100 - 108 mmol/L) 112 H 110 H 111 H 110 H Ionized Calcium (1.12 - 1.32 MMOL/L) 1.17 1.15 1.16 1.21 Lactic Acid (0.9 - 1.7 mmol/l) 0.4 L < 0.3 L 0.8 L 0.5 L O2 Delivery Device AVAPS BiPAP BiPAP FiO2 (%) 60 60.0 03/05 1436 Blood Gas Puncture Site Art Line O2 Saturation (90 - 100 %) 99.5 ABG pH (7.35 - 7.45) 7.317 L ABG pCO2 (35.0 - 45 mmHg) 55.6 *H ABG pO2 (80 - 100.0 mmHg) 185.9 H ABG PO2/FiO2 Ratio (mm/Hg) 464.75 ABG HCO3 (22.0 - 26.0 MMOL/L) 28.4 *H ABG Total CO2 30.1 ABG Base Excess (-4.0 - 4.0 MMOL/L) 2.3 ABG Hematocrit (37.5 - 50.7 %) 23 L ABG Hemoglobin (12.5 - 16.9 G/DL) 7.9 L Shayla Test N/A Sodium (134 - 147 mmol/L) 145 Potassium (3.4 - 5.0 mmol/L) 4.4 Chloride (100 - 108 mmol/L) 112 H Ionized Calcium (1.12 - 1.32 MMOL/L) 1.17 Lactic Acid (0.9 - 1.7 mmol/l) 0.8 L Temperature (F) 98.8 O2 Delivery Device BiPAP Vent Rate (/MIN) 20 FiO2 (%) 40 Tidal Volume (ml) 450 PEEP (cmH2O) 8 Pressure Support (cmH2O) 25 Laboratory Tests 03/06 03/06 03/06 03/06 03/06 1205 1039 0836 0547 0313 Chemistry Sodium (134 - 147 mEq/L) 148 H Potassium (3.4 - 5.0 mEq/L) 4.4 Chloride (100 - 108 mEq/L) 111 H Carbon Dioxide (21 - 33 mEq/l) 27 Anion Gap (0 - 20) 15 BUN (7 - 18 mg/dL) 46 H Creatinine (0.6 - 1.3 mg/dL) 3.1 H POC Creatinine (0.8 - 1.3 mg/dL) 3.7 H 3.4 H Glomerular Filtr Rate (70 - 80) 20.7 L Glucose (70 - 110 mg/dL) 135 H POC Glucose (70 - 110 MG/DL) 152 H 130 H POC Glucose (mg/dL) (70 - 110 MG/DL) 146 H 128 H Calcium (8.0 - 10.5 mg/dL) 9.1 Magnesium (1.80 - 2.40 mg/dL) 2.60 H Total Bilirubin (0.0 - 1.0 mg/dL) 0.30 Direct Bilirubin (0.0 - 0.30 MG/DL) 0.20 Indirect Bilirubin (MG/DL) 0.10 AST (15 - 37 IUnit/L) 30 ALT (30 - 65 IUnit/L) 15 L Total Alk Phosphatase (20 - 125 IUnit/L) 30 Total Protein (6.4 - 8.2 g/dL) 5.4 L Albumin (3.4 - 5.0 g/dL) 3.40 03/06 03/05 03/05 03/05 03/05 0111 2312 2254 5 2007 Chemistry Sodium (134 - 147 mEq/L) 147 Potassium (3.4 - 5.0 mEq/L) 4.4 Chloride (100 - 108 mEq/L) 110 H Carbon Dioxide (21 - 33 mEq/l) 29 Anion Gap (0 - 20) 12 BUN (7 - 18 mg/dL) 44 H Creatinine (0.6 - 1.3 mg/dL) 2.9 H POC Creatinine (0.8 - 1.3 mg/dL) 3.3 H 2.8 H 3.0 H 2.0 H Glomerular Filtr Rate (70 - 80) 22.4 L Glucose (70 - 110 mg/dL) 158 H POC Glucose (mg/dL) (70 - 110 MG/DL) 114 H 116 H 104 116 H Calcium (8.0 - 10.5 mg/dL) 8.8 Phosphorus (2.5 - 4.9 MG/DL) 5.2 H Magnesium (1.80 - 2.40 mg/dL) 2.69 H 03/05 1750 1610 1556 1543Chemistry Sodium (134 - 147 mEq/L) 148 H Potassium (3.4 - 5.0 mEq/L) 4.5 Chloride (100 - 108 mEq/L) 109 H Carbon Dioxide (21 - 33 mEq/l) 27 Anion Gap (0 - 20) 16 BUN (7 - 18 mg/dL) 41 H Creatinine (0.6 - 1.3 mg/dL) 2.7 H POC Creatinine (0.8 - 1.3 mg/dL) 2.8 H 2.7 H Glomerular Filtr Rate (70 - 80) 24.4 L Glucose (70 - 110 mg/dL) 217 H POC Glucose (70 - 110 MG/DL) 124 H 210 H POC Glucose (mg/dL) (70 - 110 MG/DL) 186 H 196 H Calcium (8.0 - 10.5 mg/dL) 9.0 Ionized Calcium [place] (1.09 - 1.30 MMOL/L) 1.11 Magnesium (1.80 - 2.40 mg/dL) 2.58 H 03/05 1436 Chemistry POC Creatinine (0.8 - 1.3 mg/dL) 2.4 H POC Glucose (mg/dL) (70 - 110 MG/DL) 223 H Laboratory Tests 03/06 03/05 0118 2334 Hematology WBC (4.5 - 11.0 x10 3/uL) 3.8 L 4.6 RBC (4.00 - 5.60 x10 6/uL) 2.16 L 2.32 L Hgb (12.5 - 16.9 g/dL) 6.6 L 7.2 L Hct (37.5 - 50.7 %) 20.9 L 22.0 L MCV (81.0 - 99.0 fL) 96.8 94.8 MCH (27.0 - 33.0 pg) 30.6 31.0 MCHC (33.0 - 37.0 g/dL) 31.6 L 32.7 L RDW (11.5 - 14.5 %) 17.2 H 17.2 H Plt Count (150 - 400 x10 3/uL) 77 L 84 L MPV (7.0 - 9.0 fL) 11.4 H 10.9 H Neut % (Auto) (56.0 - 77.0 %) 85.2 H 87.8 H Lymph % (Auto) (14.0 - 32.0 %) 4.2 L 3.2 L [place] % (Auto) (4.8 - 9.0 %) 9.8 H 8.4 Eos % (Auto) (0.3 - 3.7 %) 0.0 L 0.0 L Baso % (Auto) (0.0 - 2.0 %) 0.0 0.0 Neut # (Auto) (2.0 - 7.6 x10 3/uL) 3.22 4.05 Lymph # (Auto) (1.0 - 3.8 x10 3/uL) 0.16 L 0.15 L [place] # (Auto) (0.1 - 0.8 x10 3/uL) 0.37 0.39 Eos # (Auto) (0.0 - 0.2 x10 3/uL) 0.00 0.00 Baso # (Auto) (0.0 - 0.2 x10 3/uL) 0.00 0.00 Abs Immat Gran (auto) (0.00 - 0.03 x10 3/uL) 0.03 0.03 Add Manual Diff NO NO Immature Gran % (0.0 - 2.0 %) 0.8 0.6 Nucleated RBC % (0 - 0 %) 0.0 0.0 Nucleated RBCs # (Man) (0.0 - 0.1 x10 3/uL) 0.00 0.00 Laboratory Tests 03/05 1849 Urines Ur Random Creatinine (mg/dL) 53.7 Ur Random Sodium (MEQ/L) 14 Laboratory Tests 03/06/23 0313:[Embedded Image Not Available] 03/06/23 0118:[Embedded Image Not Available] 03/05/23 2334:[Embedded Image Not Available] 03/05/23 2254:[Embedded Image Not Available] 03/05/23 1610:[Embedded Image Not Available]Microbiology:03/03 1952 NASAL: MSSA Surveillance Screen - COMP03/03 1952 NASAL: MRSA DNA Surveillance Screen - COMP Radiology dataRecent Impressions:RADIOLOGY - XR CHEST 1 V 03/06 0639 Report Impression - Status: SIGNED Entered: 03/06/2023 0805 IMPRESSION: 1. Grossly stable exam. 2. Stable small left pneumothorax involving less than 10% volume. Stable left chest tube. Impression By: [email or web address] - Bon Spangler M.D. Diagnosis, Assessment PlanFree text A P: Problem List: Chest painWheezingDyspneaMultivessel coronary artery diseaseNon-ST elevation MIStatus post CABG x5 and ILAAElective ventilator dependenceAcute pulmonary insufficiency following major cardiothoracic surgeryAcute blood loss anemiaMetabolic acidosisLactic acidosisHypokalemiaHyperglycemiaChronic steroid dependenceSevere left carotid stenosisHistory of severe COPD Assessment and Plan: Tevin Nye is a 72-year-old gentleman with past medical history significant for hypertension, diabetes, dyslipidemia, former smoker quit in 2008, BPH, prostate cancer status postradiation severe COPD, not home oxygen dependent, severe left carotid stenosis, who was admitted to the medical floor with diagnosis of NSTEMI. He was found to have severe multivessel coronary disease on cardiac catheterization. Patient also had shortness of breath and wheezing. He was seen by pulmonology and started on steroid therapy along with nebulizer treatments. Patient underwent elective coronary artery bypass grafting surgery and received 4 jumps along with isolation of left atrial appendage. He came outof the OR with norepinephrine at 4 mcg and epinephrine at 2 mcg. EF was normal. Patient received parasternal block. Intraoperatively he received 1.5 L of crystalloids, 250 mL of Cell Saver, hemoglobin was 8.3 g/dL but on arrival his latest hemoglobin is 6.9 g/dL. Patient has been ordered 2 units of packed red cells. Intra-Op urine output was 425 mL and EBL was 100 mL. Patient received fentanyl and last neuromuscular blockade dose was at 3:15 PM. Patient was givenhydrocortisone 100 mg IV at 2:45 PM for chronic steroid dependence. He is currently on assist-control at 18 tidal volume 480 PEEP of 5 and 50% FiO2 and ismoving tidal volumes at 470+. Vital signs are stable with heart rate 82 sinus rhythm, blood pressure 95/41 mmHg, pulse ox 100% while on 50% FiO2 and respiratory rate is 14. Chest tube output is minimal at 3 mm each. Patient wasordered albumin 25% to 50 mL. Pupils are bilaterally symmetrical and reactive to light measuring 3 mm on each side. Lab work upon arrival in the CVICU room #2201 revealed a potassium of 3.3, glucose 230, creatinine 1.46 mg/dL, hemoglobinof 6.9 g/dL and hematocrit of 20%. Tevin Gonzalez is a 72 y.o. male with PMH of hypertension, dyslipidemia, diabetes, former smoker (quit 2008), BPH, prostate CA s/p radiation, COPD (uses inhaler at home, no home oxygen), and PE (November 2022 on eliquis) who presented to [facility] with chest pain, dyspnea on exertion, and NSTEMI. Coronary angiogram was done and revealed severe multivessel coronary artery disease. Patient was then transferred to [facility] for CV surgery evaluation and need for CABG. on the floor he had chest pain at rest and was transferred to the ICU for nitroglycerin drip and preoperative workup. Also noted to have chest pain - which he states is better and related to when he coughs. Currently without any pain. Patient underwent elective CABG x5 and isolation of left atrial appendage on 03/04/2023. Patient is postop day 0 after CABG x5 and ILAAHas severe left carotid stenosisOptimize systolic blood pressure to greater than 130 mmHgPatient was on chronic steroid therapy with Solu-MedrolAdrenal cortical support with hydrocortisone 25 mg IV every 8 hoursHas acute blood loss anemia with a hemoglobin of 6.9 g/dLTransfuse 2 units of packed red cellsPatient received Hydrocortisone 100 mg IV at 2:45 PM Start on Hydrocortisone 25 mg every 8 hoursAlso received parasternal blockCurrently on assist-control at 18 tidal volume 480 PEEP of 5 and 50% [id number] blood gas shows a pH of 7.28, pCO2 of 43 mmHg, pO2 of 175 mmHg and bicarbonate of 20 mmol with base excess at -6.5Patient has been ordered 1 amp of sodium bicarbonateRecheck ABGs in 1 hourChest tube output is minimal at 3 mL in both left pleural and mediastinal chest tubeBlood pressure is low upon arrival at 95/41 mm of HgOptimize blood pressure with Norepinephrine, titrate to a map of 70 or greaterAvoid sedationMonitor chest tube outputPupils are bilaterally symmetrical and reactive to light measuring 3 mm on each sideReplete potassium, check magnesium and ionized calciumFollow BMPGlycemic control with insulin drip, latest blood glucose is 230 mg/dL SCDs for DVT prophylaxis Noé Madrid MD [facility].32 PM 03/06/2023Neurologically patient is at baseline. More awake today.Patient has been weaned off the BiPAP. He is on nasal cannula 4 L. HypercapniaimprovingContinue DuoNebs.Will wean down the steroids to 40 daily.Chest x-ray and ABG reviewed.Patient went into A-fib with RVR. I received amiodarone bolus. Is in sinus rhythm. Will wean off the dopamine. If needed will use Levophed for blood pressure support to keep a MAP of more than 75.Continue to monitor the urine output. Patient currently making about 40 cc/h. Creatinine however worsening. Renal following. No IV fluids. Patient started to take oral intake.Patient's hemoglobin dropped to 6.6. Received 2 units of PRBC.No active bleeding on the chest tube. After walking we will reassess intake of the chest tube.Insulin drip for sugar control.Continue aspirin and Plavix.Platelets are down. Continue to monitor.Hypernatremia encourage oral intake.LFTs within normal.SCDs for DVT prophylaxis.PPI. Total critical care time 50 minutes excluding proceduresConsultants: anesthesiology, cardiology, cardiovascular surgery, critical/osteopathy doctor, hospitalist at 1336 RPT #:[id number] OF REPORTPRProgress [id number]:00G.[id number] able for patient [id number]:36:35 [facility] 2023-03-06 12:11:00 [id number]:11:00 [facility])Nephrology Progress NoteREPORT#:[id number] REPORT STATUS: SignedDATE:03/06/23 TIME: 1211 PATIENT: TEVIN NYE UNIT #: [id number]#: [id number] ROOM[address]DOB: [birth year] AGE: 72 SEX: M ATTEND: Luci Villeda [facility] AUTHOR: Glendy Paz MD * ALL edits or amendments must be made on the electronic/computer document * SubjectiveComments:Getting 1 unit of PRBC, increasing urine output. Objective GeneralVS/I O:Vital Signs: Date Time Temp Pulse Resp B/P B/P Pulse O2 O2 Flow FiO2 Mean Ox Delivery Rate 03/06 1115 135/65 93 03/06 1115 99.0 93 14 148/54 83 94 03/06 1100 132/60 87 03/06 1100 99.1 87 15 139/52 78 94 03/06 1046 100/53 74 03/06 1046 99.1 78 27 103/46 63 96 03/06 1030 106/51 74 03/06 1030 99.1 80 16 130/48 73 96 03/06 1015 132/60 87 03/06 1015 99.1 80 19 142/52 80 97 03/06 1000 118/59 80 03/06 1000 99.3 82 25 124/46 70 96 03/06 0946 103/58 71 03/06 0946 99.3 85 30 109/46 65 95 03/06 0941 90/51 65 03/06 0941 99.3 85 31 109/43 64 98 03/06 0900 101/58 71 03/06 0900 99.0 123 26 106/50 67 94 03/06 0830 132/62 89 03/06 0830 98.6 82 21 149/58 85 96 03/06 0815 118/56 81 03/06 0815 98.8 130 22 117/55 74 94 03/06 0801 122/66 84 03/06 0801 98.6 140 0 121/62 80 99 03/06 0752 96 Nasal 3 cannula 03/06 0730 119/57 82 03/06 0730 98.6 83 14 137/57 81 94 03/06 0700 123/62 86 03/06 0700 98.6 131 27 144/65 88 94 03/06 0619 98.6 80 24 162/58 88 94 03/06 0600 98.4 80 20 152/52 81 95 03/06 0530 98.4 76 21 137/49 76 95 03/06 0500 98.6 75 9 140/54 81 98 / 0430 98.8 76 14 137/52 77 97 / 0400 98.8 85 30 133/49 80 91 03/06 0330 98.6 79 14 130/51 74 95 03/06 0308 76 95 / 0300 98.6 77 12 133/50 74 93 / 0230 98.6 74 18 128/48 71 95 03/06 0200 98.8 72 13 121/45 68 97 03/06 0130 99.0 74 17 123/46 68 95 03/06 0030 99.3 73 12 123/46 68 100 03/06 0000 99.3 74 18 125/50 72 100 03/05 2330 99.5 75 16 126/47 70 100 03/05 2300 99.5 76 13 107/46 65 97 03/05 2300 74 100 03/05 2230 99.3 152 23 103/51 69 98 03/05 2200 99.3 92 13 146/58 84 100 03/05 2130 99.3 101 30 119/58 79 96 03/05 2100 99.5 75 13 110/45 63 100 03/05 2030 99.3 80 9 114/47 66 100 03/05 2000 BiPAP 60 03/05 2000 99.1 87 13 128/48 72 100 03/05 1930 99.3 84 10 128/48 72 100 03/05 1915 84 100 60 03/05 1915 100 BiPAP 60 03/05 1900 99.3 83 20 128/48 73 100 03/05 1800 99.1 95 18 147/56 84 100 03/05 1730 99.1 82 7 134/51 76 100 03/05 1700 99.0 92 12 147/62 89 100 03/05 1651 99.0 92 13 142/60 86 100 03/05 1630 99.0 91 17 148/61 88 100 03/05 1605 91 100 61 03/05 1600 98.8 91 18 149/63 91 100 03/05 1530 98.8 100 21 155/62 92 97 03/05 1500 98.8 91 10 154/64 93 100 03/05 1430 98.8 86 19 147/63 89 100 03/05 1411 85.5 70 33 80/40 54 100 03/05 1400 99.0 73 17 94/44 61 100 03/05 1330 99.0 71 18 117/48 68 100 03/05 1300 98.8 78 13 116/49 69 100 03/05 1230 98.6 92 0 167/62 97 98 24 hour I O ending at 0700: 03/06 0703/05 1900 Intake Total 2388.00 969.00 Output Total 255 595 Balance 2133.00 374.00 Intake, IV 1558.00 769.00 Intake, Oral 480 200 Intake, 350 Packed Cells Output, Chest 250 Tube Drainage Output, Urine 255 345 Patient 89.9 kg Weight Weight Bed scale Measurement Method PATIENT WEIGHT: Weight (lb): 198Weight (oz): 3.13Weight (kg): 89.811 MedicationsActive Meds + DC'd Last 24 HrsIpratropium [place] (ATROVENT) 500 MCG RTQ2H PRN PRN INH Cyanocobalamin (Vitamin B-12 500 mcg tab) 500 MCG DAILY PO Ferrous Sulfate (FERROUS SULFATE) 325 MG DAILY PO Bisacodyl (DULCOLAX) 10 MG ONCE PRN RECTAL Magnesium Hydroxide (MILK OF MAGNESIA) 30 ML ONCE PRN PO Amiodarone HCl (CORDARONE) 400 MG TID PO (CKD) Albumin Human (ALBUMINAR 5% 12.5GM/250ML) 250 ML Q30M IV (DC) Calcium Gluconate (Calcium Gluconate 1 GM/NS 50 mL (B2)) 50 ML ONCE ONE IV (DC) Atorvastatin Calcium (LIPITOR) 40 MG 2100 PO Amiodarone HCl (NEXTERONE 150MG/D5W 100ML) 100 ML .STK-MED ONE IV (DC) Amiodarone HCl (NEXTERONE 150MG/D5W 100ML) 100 ML STAT STA IV (DC) Sodium Chloride (SODIUM CHLORIDE 0.9%) 1,000 ML .[id number] IV (DC) Acetaminophen (OFIRMEV 10MG/ML) 100 ML ONCE ONE IV (DC) Budesonide (PULMICORT RESPULES) 0.5 MG RTBID INH Formoterol Fumarate (PERFOROMIST) 20 MCG RTBID NEB Methylprednisolone Sodium Succinate (Solu-Medrol 40 MG Vial) 40 MG Q12H IV Sterile Water (WATER FOR INJECTION) 1 ML ASDIR PRN IV Tamsulosin HCl (Flomax 0.4 mg) 0.8 MG PC BK PO Hydrocortisone Sodium Succinate (Solu-CORTEF) 25 MG Q8H IV (DC) Dopamine HCl/Dextrose (DOPamine 400MG/D5W 250ML) 250 ML ASDIR IV (DC) Clopidogrel Bisulfate (Plavix) 75 MG DAILY PO Mupirocin (BACTROBAN 2% 22 GM OINTMENT) 1 APPLIC BID NASAL Polyethylene Glycol (MIRALAX) 17 GM DAILY PO Amiodarone HCl (AMIODARONE HCL) 450 MG ASDIR IV (CKD) Dextrose/Water (D5%W NON-DEHP) 250 MLPantoprazole (PROTONIX) 40 MG DAILY@0600 PO Aspirin (ASPIRIN) 81 MG DAILY PO Amiodarone HCl (CORDARONE) 200 MG TID PO (DC) Docusate Sodium (COLACE) 100 MG BID PO Metoprolol Tartrate (LOPRESSOR) 12.5 MG Q12HR PO Sennosides (Senna Lax 8.6 MG TABLET) 17.2 MG BEDTIME PO Ipratropium [place] (ATROVENT) 500 MCG RTQ4H INH Acetaminophen (TYLENOL) 650 MG Q4H PRN PRN PO Acetaminophen (TYLENOL) 650 MG Q4H PRN PRN RECTAL Albumin Human (ALBUMINAR 25%) 25 GM ASDIR PRN IV (DC) Calcium Chloride (CALCIUM CHLORIDE) 1 GM ASDIR PRN IV Dextrose/Water (DEXTROSE 10% IN WATER) 125 ML ASDIR PRN IV (CKD) Dextrose/Water (DEXTROSE 10% IN WATER) 250 ML ASDIR PRN IV (CKD) Epinephrine (ADRENALIN CHLORIDE) 4 MG ASDIR IV Dextrose/Water (DEXTROSE 5% WATER) 246 MLGlucagon (GLUCAGON) 1 MG ASDIR PRN IM Insulin Human Regular (HumuLIN R) 100 UNIT ASDIR IV (CKD) Sodium Chloride (SODIUM CHLORIDE 0.9%) 99 MLMagnesium Sulfate (MAGNESIUM SULFATE 4GM/SWFI 100ML) 100 ML ASDIR PRN IV Magnesium Sulfate (MAGNESIUM SULFATE 2GM/SWFI 50ML) 50 ML ASDIR PRN IV Magnesium Sulfate/Dextrose (MAGNESIUM SULFATE 1GM/D5W 100ML) 100 ML ASDIR PRN IV Nitroglycerin/Dextrose (NITROGLYCERIN 50,000MCG/D5W 250ML) 250 ML ASDIR IV Norepinephrine Bitartrate (NOREPINEPHRINE 8 MG/NS 250 ML) 250 ML TITRATE IV Ondansetron HCl (ZOFRAN) 4 MG Q6H PRN PRN IV Potassium Chloride (KCL 20MEQ/SWFI 100ML) 100 ML ASDIR PRN IV Sodium Bicarbonate (SODIUM BICARBONATE) 50 MEQ ASDIR PRN IV Sodium Chloride (SODIUM CHLORIDE 0.9%) 1,000 ML .Q20H IV (DC) Sodium Chloride (SODIUM CHLORIDE 0.9%) 250 ML Q24H IV Physical ExamGeneral appearance: alert, awakeHead/eyes: atraumatic, normocephalic, PERRLANeck: no JVD, no lymphadenopathyCardiovascular: normal heart sounds, regular rate and rhythm, no rubRespiratory: decreased breath sounds, aerating well, no distressAbdomen: non-tender, normal bowel sounds, soft, no reboundGenitourinary: urinary catheter, urineExtremities: no edema, no gangreneNeuro/SALES ASSISTANT: alert, normal speech ResultsFindings/Data:Laboratory Tests 03/06 03/06 03/06 03/05 1039 0585 0111 2312 Blood Gas Puncture Site Art Line Art Line Art Line Art Line O2 Saturation (90 - 100 %) 95.4 93.1 99.0 96.9 ABG pH (7.35 - 7.45) 7.320 L 7.318 L 7.318 L 7.354 ABG pCO2 (35.0 - 45 mmHg) 51.3 *H 52.4 *H 54.4 *H 49.1 H ABG pO2 (80 - 100.0 mmHg) 86.5 74.1 L 147.3 H 94.7 ABG HCO3 (22.0 - 26.0 MMOL/L) 26.3 H 26.8 H 27.9 H 27.4 H ABG Total CO2 27.9 28.4 29.5 28.9 ABG Base Excess (-4.0 - 4.0 MMOL/L) 0.3 0.7 1.7 1.8 ABG Hematocrit (37.5 - 50.7 %) 25 L 21 L 18 L 20 L ABG Hemoglobin (12.5 - 16.9 G/DL) 8.6 L 7.0 L 6.2 L 6.8 L Sodium (134 - 147 mmol/L) 144 145 145 145 Potassium (3.4 - 5.0 mmol/L) 3.9 4.0 4.1 3.9 Chloride (100 - 108 mmol/L) 110 H 110 H 109 H 110 H Ionized Calcium (1.12 - 1.32 MMOL/L) 1.16 1.15 1.18 1.20 Lactic Acid (0.9 - 1.7 mmol/l) 0.7 L 0.3 L < 0.3 L 0.7 L Temperature (F) 99.1 O2 Delivery Device Cannula 2L HFNC 4L HFNC 4L HFNC 03/05 175 154 Blood Gas Puncture Site Art Line Art Line Art Line O2 Saturation (90 - 100 %) 96.3 99.7 95.5 97.4 ABG pH (7.35 - 7.45) 7.341 L 7.342 L 7.339 L 7.275 *L ABG pCO2 (35.0 - 45 mmHg) 54.8 *H 53.0 *H 55.2 *H 62.7 *H ABG pO2 (80 - 100.0 mmHg) 91.2 202.6 *H 85.1 110.1 H ABG PO2/FiO2 Ratio (mm/Hg) 337.66 141.80 ABG HCO3 (22.0 - 26.0 MMOL/L) 29.6 *H 28.7 *H 29.7 *H 29.1 *H ABG Total CO2 31.3 30.4 31.4 31.0 ABG Base Excess (-4.0 - 4.0 MMOL/L) 3.9 3.0 4.0 2.3 ABG Hematocrit (37.5 - 50.7 %) 23 L 22 L 24 L 25 L ABG Hemoglobin (12.5 - 16.9 G/DL) 7.8 L 7.6 L 8.3 L 8.4 L Shayla Test N/A Sodium (134 - 147 mmol/L) 146 146 144 145 Potassium (3.4 - 5.0 mmol/L) 4.2 4.1 4.2 4.4 Chloride (100 - 108 mmol/L) 112 H 110 H 111 H 110 H Ionized Calcium (1.12 - 1.32 MMOL/L) 1.17 1.15 1.16 1.21 Lactic Acid (0.9 - 1.7 mmol/l) 0.4 L < 0.3 L 0.8 L 0.5 L O2 Delivery Device AVAPS BiPAP BiPAP FiO2 (%) 60 60.0 03/05 1436 Blood Gas Puncture Site Art Line O2 Saturation (90 - 100 %) 99.5 ABG pH (7.35 - 7.45) 7.317 L ABG pCO2 (35.0 - 45 mmHg) 55.6 *H ABG pO2 (80 - 100.0 mmHg) 185.9 H ABG PO2/FiO2 Ratio (mm/Hg) 464.75 ABG HCO3 (22.0 - 26.0 MMOL/L) 28.4 *H ABG Total CO2 30.1 ABG Base Excess (-4.0 - 4.0 MMOL/L) 2.3 ABG Hematocrit (37.5 - 50.7 %) 23 L ABG Hemoglobin (12.5 - 16.9 G/DL) 7.9 L Hsayla Test N/A Sodium (134 - 147 mmol/L) 145 Potassium (3.4 - 5.0 mmol/L) 4.4 Chloride (100 - 108 mmol/L) 112 H Ionized Calcium (1.12 - 1.32 MMOL/L) 1.17 Lactic Acid (0.9 - 1.7 mmol/l) 0.8 L Temperature (F) 98.8 O2 Delivery Device BiPAP Vent Rate (/MIN) 20 FiO2 (%) 40 Tidal Volume (ml) 450 PEEP (cmH2O) 8 Pressure Support (cmH2O) 25 Laboratory Tests 03/06 03/06 03/06 03/06 03/06 1039 0836 0547 0313 0111 Chemistry Sodium (134 - 147 mEq/L) 148 H Potassium (3.4 - 5.0 mEq/L) 4.4 Chloride (100 - 108 mEq/L) 111 H Carbon Dioxide (21 - 33 mEq/l) 27 Anion Gap (0 - 20) 15 BUN (7 - 18 mg/dL) 46 H Creatinine (0.6 - 1.3 mg/dL) 3.1 H POC Creatinine (0.8 - 1.3 mg/dL) 3.7 H 3.4 H 3.3 H Glomerular Filtr Rate (70 - 80) 20.7 L Glucose (70 - 110 mg/dL) 135 H POC Glucose (70 - 110 MG/DL) 130 H POC Glucose (mg/dL) (70 - 110 MG/DL) 146 H 128 H 114 H Calcium (8.0 - 10.5 mg/dL) 9.1 Magnesium (1.80 - 2.40 mg/dL) 2.60 H Total Bilirubin (0.0 - 1.0 mg/dL) 0.30 Direct Bilirubin (0.0 - 0.30 MG/DL) 0.20 Indirect Bilirubin (MG/DL) 0.10 AST (15 - 37 IUnit/L) 30 ALT (30 - 65 IUnit/L) 15 L Total Alk Phosphatase (20 - 125 IUnit/L) 30 Total Protein (6.4 - 8.2 g/dL) 5.4 L Albumin (3.4 - 5.0 g/dL) 3.40 03/05 03/05 03/05 03/05 03/05 2312 2254 2205 2007 2006 Chemistry Sodium (134 - 147 mEq/L) 147 Potassium (3.4 - 5.0 mEq/L) 4.4 Chloride (100 - 108 mEq/L) 110 H Carbon Dioxide (21 - 33 mEq/l) 29 Anion Gap (0 - 20) 12 BUN (7 - 18 mg/dL) 44 H Creatinine (0.6 - 1.3 mg/dL) 2.9 H POC Creatinine (0.8 - 1.3 mg/dL) 2.8 H 3.0 H 2.0 H Glomerular Filtr Rate (70 - 80) 22.4 L Glucose (70 - 110 mg/dL) 158 H POC Glucose (70 - 110 MG/DL) 124 H POC Glucose (mg/dL) (70 - 110 MG/DL) 116 H 104 116 H Calcium (8.0 - 10.5 mg/dL) 8.8 Phosphorus (2.5 - 4.9 MG/DL) 5.2 H Magnesium (1.80 - 2.40 mg/dL) 2.69 H 03/05 03/05 03/05 03/05 03/05 1750 1610 1556 1543 1436Chemistry Sodium (134 - 147 mEq/L) 148 H Potassium (3.4 - 5.0 mEq/L) 4.5 Chloride (100 - 108 mEq/L) 109 H Carbon Dioxide (21 - 33 mEq/l) 27 Anion Gap (0 - 20) 16 BUN (7 - 18 mg/dL) 41 H Creatinine (0.6 - 1.3 mg/dL) 2.7 H POC Creatinine (0.8 - 1.3 mg/dL) 2.8 H 2.7 H 2.4 H Glomerular Filtr Rate (70 - 80) 24.4 L Glucose (70 - 110 mg/dL) 217 H POC Glucose (70 - 110 MG/DL) 210 H POC Glucose (mg/dL) (70 - 110 MG/DL) 186 H 196 H 223 H Calcium (8.0 - 10.5 mg/dL) 9.0 Ionized Calcium [place] (1.09 - 1.30 MMOL/L) 1.11 Magnesium (1.80 - 2.40 mg/dL) 2.58 H Laboratory Tests 03/06 03/05 0118 2334 Hematology WBC (4.5 - 11.0 x10 3/uL) 3.8 L 4.6 RBC (4.00 - 5.60 x10 6/uL) 2.16 L 2.32 L Hgb (12.5 - 16.9 g/dL) 6.6 L 7.2 L Hct (37.5 - 50.7 %) 20.9 L 22.0 L MCV (81.0 - 99.0 fL) 96.8 94.8 MCH (27.0 - 33.0 pg) 30.6 31.0 MCHC (33.0 - 37.0 g/dL) 31.6 L 32.7 L RDW (11.5 - 14.5 %) 17.2 H 17.2 H Plt Count (150 - 400 x10 3/uL) 77 L 84 L MPV (7.0 - 9.0 fL) 11.4 H 10.9 H Neut % (Auto) (56.0 - 77.0 %) 85.2 H 87.8 H Lymph % (Auto) (14.0 - 32.0 %) 4.2 L 3.2 L [place] % (Auto) (4.8 - 9.0 %) 9.8 H 8.4 Eos % (Auto) (0.3 - 3.7 %) 0.0 L 0.0 L Baso % (Auto) (0.0 - 2.0 %) 0.0 0.0 Neut # (Auto) (2.0 - 7.6 x10 3/uL) 3.22 4.05 Lymph # (Auto) (1.0 - 3.8 x10 3/uL) 0.16 L 0.15 L [place] # (Auto) (0.1 - 0.8 x10 3/uL) 0.37 0.39 Eos # (Auto) (0.0 - 0.2 x10 3/uL) 0.00 0.00 Baso # (Auto) (0.0 - 0.2 x10 3/uL) 0.00 0.00 Abs Immat Gran (auto) (0.00 - 0.03 x10 3/uL) 0.03 0.03 Add Manual Diff NO NO Immature Gran % (0.0 - 2.0 %) 0.8 0.6 Nucleated RBC % (0 - 0 %) 0.0 0.0 Nucleated RBCs # (Man) (0.0 - 0.1 x10 3/uL) 0.00 0.00 Laboratory Tests 03/05 1849 Urines Ur Random Creatinine (mg/dL) 53.7 Ur Random Sodium (MEQ/L) 14 Radiology data:Recent Impressions:RADIOLOGY - XR CHEST 1 V 03/06 0639 Report Impression - Status: SIGNED Entered: 03/06/2023 0805 IMPRESSION: 1. Grossly stable exam. 2. Stable small left pneumothorax involving less than 10% volume. Stable left chest tube. Impression By: [email or web address] - Bon Spangler M.D. Diagnosis, Assessment PlanFree Text A P:1. JERAMY likely ATN secondary to IV contrast. Urine output improving. Sp NS at 75 cc/h for 1 L. Monitor respiratory status closely. Avoid nephrotoxic medications.cr worse at 3.1 today. 2. Acute hypercapnic respiratory failure with COPD on BiPAP. Pulmonary following 3. Coronary disease status post CABG postop care per CT surgery 4. Left carotid artery stenosis5. Anemia we will get 2 units of PRBC todayDiscussed with ICC 1. Left ventricle: The cavity size is normal. Wall thickness is normal. Systolic function is mildly reduced. The estimated ejection fraction is 40-44%. Doppler parameters are consistent with abnormal left ventricular relaxation (grade 1 diastolic dysfunction).2. Regional wall motion abnormality: Severe hypokinesis of the apical anterior, apical septal, apical lateral, and apical myocardium; hypokinesis of the basal-mid anteroseptal myocardium.3. Right ventricle: Systolic pressure is moderately increased.4. Mitral valve: There is mild regurgitation.5. Tricuspid valve: Estimated right ventricular systolic pressure is 46 mmHg. There is moderate regurgitation.6. Pericardium, extracardiac: A trivial pericardial effusion is identified.7. Inferior vena cava: The vessel is dilated. The respirophasic diameter changes are in the normal range (= 50%). Inferior vena cava diameter is 2.1 cm. on 03/04/23 at 1717 at 1501 RPT #:[id number] OF REPORTPRProgress [id number] able for patient [id number]:02:25 [facility] 2023-03-06 06:55:00 [id number] [id number]:00 [facility]Card[facility] Progress NoteREPORT#:[id number] REPORT STATUS: SignedDATE:03/06/23 TIME: 06 PATIENT: TEVIN NYE UNIT #: [id number]#: [id number] [address] AGE: 72 SEX: M ATTEND: Luci Villeda [facility] AUTHOR: Anuj Sylvester MD * ALL edits or amendments must be made on the electronic/computer document * SubjectiveChief complaint:Weak Objective GeneralVS/I O:24 hour I O ending at 0700: 03/06 0700 03/05 1900 Intake Total 2388.00 969.00 Output Total 255 595 Balance 2133.00 374.00 Intake, IV 1558.00 769.00 Intake, Oral 480 200 Intake, 350 Packed Cells Output, Chest 250 Tube Drainage Output, Urine 255 345 Patient 89.9 kg Weight Weight Bed scale Measurement Method Vital Signs: Date Time Temp Pulse Resp B/P B/P Pulse O2 O2 Flow FiO2 Mean Ox Delivery Rate 03/06 0619 98.6 80 24 162/58 88 94 03/06 0600 98.4 80 20 152/52 81 95 03/06 0530 98.4 76 21 137/49 76 95 03/06 0500 98.6 75 9 140/54 81 98 03/06 0430 98.8 76 14 137/52 77 97 03/06 0400 98.8 85 30 133/49 80 91 03/06 0330 98.6 79 14 130/51 74 95 03/06 0308 76 95 03/06 0300 98.6 77 12 133/50 74 93 03/06 0230 98.6 74 18 128/48 71 95 03/06 0200 98.8 72 13 121/45 68 97 03/06 0130 99.0 74 17 123/46 68 95 03/06 0030 99.3 73 12 123/46 68 100 03/06 0000 99.3 74 18 125/50 72 100 03/05 2330 99.5 75 16 126/47 70 100 03/05 2300 99.5 76 13 107/46 65 97 03/05 2300 74 100 03/05 2230 99.3 152 23 103/51 69 98 03/05 2200 99.3 92 13 146/58 84 100 03/05 2130 99.3 101 30 119/58 79 96 03/05 2100 99.5 75 13 110/45 63 100 03/05 2030 99.3 80 9 114/47 66 100 03/05 2000 BiPAP 60 03/05 2000 99.1 87 13 128/48 72 100 03/05 1930 99.3 84 10 128/48 72 100 03/05 1915 84 100 60 03/05 1915 100 BiPAP 60 03/05 1900 99.3 83 20 128/48 73 100 03/05 1800 99.1 95 18 147/56 84 100 03/05 1730 99.1 82 7 134/51 76 100 03/05 1700 99.0 92 12 147/62 89 100 03/05 1651 99.0 92 13 142/60 86 100 03/05 1630 99.0 91 17 148/61 88 100 03/05 1605 91 100 61 03/05 1600 98.8 91 18 149/63 91 100 03/05 1530 98.8 100 21 155/62 92 97 03/05 1500 98.8 91 10 154/64 93 100 03/05 1430 98.8 86 19 147/63 89 100 03/05 1411 85.5 70 33 80/40 54 100 03/05 1400 99.0 73 17 94/44 61 100 03/05 1330 99.0 71 18 117/48 68 100 03/05 1300 98.8 78 13 116/49 69 100 03/05 1230 98.6 92 0 167/62 97 98 03/05 1208 90 99 40 03/05 1200 98.4 89 13 157/59 91 100 03/05 1130 98.6 81 19 117/48 70 100 03/05 1100 98.8 70 17 135/53 77 100 03/05 1030 98.6 69 8 142/51 77 100 03/05 1000 98.6 71 12 137/51 76 100 03/05 0930 98.4 71 9 132/50 76 100 03/05 0900 98.4 68 0 135/51 76 100 03/05 0830 98.4 74 17 129/53 78 100 03/05 0830 74 100 40 03/05 0830 100 BiPAP 40 03/05 0800 BiPAP 40 03/05 0800 98.2 73 12 135/53 79 100 03/05 0730 98.2 75 13 128/56 77 97 03/05 0708 98.2 82 17 119/57 77 97 PATIENT WEIGHT: Weight (lb): 198Weight (oz): 3.13Weight (kg): 89.900 Medications:Active Meds + DC'd Last 24 HrsIpratropium [place] (ATROVENT) 500 MCG RTQ2H PRN PRN INH Cyanocobalamin (Vitamin B-12 500 mcg tab) 500 MCG DAILY PO Ferrous Sulfate (FERROUS SULFATE) 325 MG DAILY PO Bisacodyl (DULCOLAX) 10 MG ONCE PRN RECTAL Magnesium Hydroxide (MILK OF MAGNESIA) 30 ML ONCE PRN PO Albumin Human (ALBUMINAR 5% 12.5GM/250ML) 250 ML Q30M IV (DC) Calcium Gluconate (Calcium Gluconate 1 GM/NS 50 mL (B2)) 50 ML ONCE ONE IV (DC) Atorvastatin Calcium (LIPITOR) 40 MG 2100 PO Amiodarone HCl (NEXTERONE 150MG/D5W 100ML) 100 ML .STK-MED ONE IV (DC) Amiodarone HCl (NEXTERONE 150MG/D5W 100ML) 100 ML STAT STA IV (DC) Sodium Chloride (SODIUM CHLORIDE 0.9%) 1,000 ML .[id number] IV Acetaminophen (OFIRMEV 10MG/ML) 100 ML ONCE ONE IV (DC) Budesonide (PULMICORT RESPULES) 0.5 MG RTBID INH Formoterol Fumarate (PERFOROMIST) 20 MCG RTBID NEB Methylprednisolone Sodium Succinate (Solu-Medrol 40 MG Vial) 40 MG Q12H IV Sterile Water (WATER FOR INJECTION) 1 ML ASDIR PRN IV Tamsulosin HCl (Flomax 0.4 mg) 0.8 MG PC BK PO Hydrocortisone Sodium Succinate (Solu-CORTEF) 25 MG Q8H IV (DC) Dopamine HCl/Dextrose (DOPamine 400MG/D5W 250ML) 250 ML ASDIR IV Magnesium Citrate (MAGNESIUM CITRATE) 150 ML ONCE ONE PO (DC) Clopidogrel Bisulfate (Plavix) 75 MG DAILY PO Mupirocin (BACTROBAN 2% 22 GM OINTMENT) 1 APPLIC BID NASAL Polyethylene Glycol (MIRALAX) 17 GM DAILY PO Amiodarone HCl (AMIODARONE HCL) 450 MG ASDIR IV (CKD) Dextrose/Water (D5%W NON-DEHP) 250 MLPantoprazole (PROTONIX) 40 MG DAILY@0600 PO Sodium Chloride (0.45% Sodium Chloride) 500 ML BOLUS ONCE ONE IV (DC) Oxycodone HCl (ROXICODONE) 5 MG Q4H PRN PRN PO (DC) Aspirin (ASPIRIN) 81 MG DAILY PO Amiodarone HCl (CORDARONE) 200 MG TID PO Docusate Sodium (COLACE) 100 MG BID PO Gabapentin (NEURONTIN) 200 MG BID PO (DC) Metoprolol Tartrate (LOPRESSOR) 12.5 MG Q12HR PO Sennosides (Senna Lax 8.6 MG TABLET) 17.2 MG BEDTIME PO Ipratropium [place] (ATROVENT) 500 MCG RTQ4H INH Acetaminophen (TYLENOL) 650 MG Q4H PRN PRN PO Acetaminophen (TYLENOL) 650 MG Q4H PRN PRN RECTAL Albumin Human (ALBUMINAR 25%) 25 GM ASDIR PRN IV (DC) Calcium Chloride (CALCIUM CHLORIDE) 1 GM ASDIR PRN IV Dextrose/Water (DEXTROSE 10% IN WATER) 125 ML ASDIR PRN IV (CKD) Dextrose/Water (DEXTROSE 10% IN WATER) 250 ML ASDIR PRN IV (CKD) Epinephrine (ADRENALIN CHLORIDE) 4 MG ASDIR IV Dextrose/Water (DEXTROSE 5% WATER) 246 MLGlucagon (GLUCAGON) 1 MG ASDIR PRN IM Insulin Human Regular (HumuLIN R) 100 UNIT ASDIR IV (CKD) Sodium Chloride (SODIUM CHLORIDE 0.9%) 99 MLMagnesium Sulfate (MAGNESIUM SULFATE 4GM/SWFI 100ML) 100 ML ASDIR PRN IV Magnesium Sulfate (MAGNESIUM SULFATE 2GM/SWFI 50ML) 50 ML ASDIR PRN IV Magnesium Sulfate/Dextrose (MAGNESIUM SULFATE 1GM/D5W 100ML) 100 ML ASDIR PRN IV Nitroglycerin/Dextrose (NITROGLYCERIN 50,000MCG/D5W 250ML) 250 ML ASDIR IV Norepinephrine Bitartrate (NOREPINEPHRINE 8 MG/NS 250 ML) 250 ML TITRATE IV Ondansetron HCl (ZOFRAN) 4 MG Q6H PRN PRN IV Potassium Chloride (KCL 20MEQ/SWFI 100ML) 100 ML ASDIR PRN IV Sodium Bicarbonate (SODIUM BICARBONATE) 50 MEQ ASDIR PRN IV Sodium Chloride (SODIUM CHLORIDE 0.9%) 1,000 ML .Q20H IV (DC) Sodium Chloride (SODIUM CHLORIDE 0.9%) 250 ML Q24H IV Physical ExamGeneral appearance: alert, awakeNeck: full range of motion, non-tender, normal thyroid, supple/no meningismus, no bruit/NL carotids, no JVD, no lymphadenopathy, no masses or swellingCardiovascular: CV assessment: regular rate and rhythmRespiratory: decreased breath sounds, clear to auscultationAbdomen: non-tender, normal bowel sounds, no distention, no guarding, no mass/organomegaly, no pulsatile mass, no reboundUpper extremity: UE assessment: normal capillary refill, no edemaLower extremity: LE assessment: normal capillary refill, no edema ResultsFindings/Data:Laboratory Tests 03/06 03/06 03/05 03/05 0547 0111 2312 2205 Blood Gas Puncture Site Art Line Art Line Art Line O2 Saturation (90 - 100 %) 93.1 99.0 96.9 96.3 ABG pH (7.35 - 7.45) 7.318 L 7.318 L 7.354 7.341 L ABG pCO2 (35.0 - 45 mmHg) 52.4 *H 54.4 *H 49.1 H 54.8 *H ABG pO2 (80 - 100.0 mmHg) 74.1 L 147.3 H 94.7 91.2 ABG HCO3 (22.0 - 26.0 MMOL/L) 26.8 H 27.9 H 27.4 H 29.6 *H ABG Total CO2 28.4 29.5 28.9 31.3 ABG Base Excess (-4.0 - 4.0 MMOL/L) 0.7 1.7 1.8 3.9 ABG Hematocrit (37.5 - 50.7 %) 21 L 18 L 20 L 23 L ABG Hemoglobin (12.5 - 16.9 G/DL) 7.0 L 6.2 L 6.8 L 7.8 L Sodium (134 - 147 mmol/L) 145 145 145 146 Potassium (3.4 - 5.0 mmol/L) 4.0 4.1 3.9 4.2 Chloride (100 - 108 mmol/L) 110 H 109 H 110 H 112 H Ionized Calcium (1.12 - 1.32 MMOL/L) 1.15 1.18 1.20 1.17 Lactic Acid (0.9 - 1.7 mmol/l) 0.3 L < 0.3 L 0.7 L 0.4 L O2 Delivery Device 2L HFNC 4L HFNC 4L HFNC 03/05 1750 1543 1436 Blood Gas Puncture Site Art Line Art Line Art Line Art Line O2 Saturation (90 - 100 %) 99.7 95.5 97.4 99.5 ABG pH (7.35 - 7.45) 7.342 L 7.339 L 7.275 *L 7.317 L ABG pCO2 (35.0 - 45 mmHg) 53.0 *H 55.2 *H 62.7 *H 55.6 *H ABG pO2 (80 - 100.0 mmHg) 202.6 *H 85.1 110.1 H 185.9 H ABG PO2/FiO2 Ratio (mm/Hg) 337.66 141.80 464.75 ABG HCO3 (22.0 - 26.0 MMOL/L) 28.7 *H 29.7 *H 29.1 *H 28.4 *H ABG Total CO2 30.4 31.4 31.0 30.1 ABG Base Excess (-4.0 - 4.0 MMOL/L) 3.0 4.0 2.3 2.3 ABG Hematocrit (37.5 - 50.7 %) 22 L 24 L 25 L 23 L ABG Hemoglobin (12.5 - 16.9 G/DL) 7.6 L 8.3 L 8.4 L 7.9 L Shayla Test N/A N/A Sodium (134 - 147 mmol/L) 146 144 145 145 Potassium (3.4 - 5.0 mmol/L) 4.1 4.2 4.4 4.4 Chloride (100 - 108 mmol/L) 110 H 111 H 110 H 112 H Ionized Calcium (1.12 - 1.32 MMOL/L) 1.15 1.16 1.21 1.17 Lactic Acid (0.9 - 1.7 mmol/l) < 0.3 L 0.8 L 0.5 L 0.8 L Temperature (F) 98.8 O2 Delivery Device AVAPS BiPAP BiPAP BiPAP Vent Rate (/MIN) 20 FiO2 (%) 60 60.0 40 Tidal Volume (ml) 450 PEEP (cmH2O) 8 Pressure Support (cmH2O) 03/05 1047 0743 Blood Gas Puncture Site Art Line Art Line O2 Saturation (90 - 100 %) 97.6 95.1 ABG pH (7.35 - 7.45) 7.327 L 7.343 L ABG pCO2 (35.0 - 45 mmHg) 63.4 *H 58.9 *H ABG pO2 (80 - 100.0 mmHg) 108.3 H 82.1 ABG PO2/FiO2 Ratio (mm/Hg) 361.00 273.66 ABG HCO3 (22.0 - 26.0 MMOL/L) 33.2 *H 32.0 *H ABG Total CO2 35.2 33.8 ABG Base Excess (-4.0 - 4.0 MMOL/L) 7.2 H 6.3 H ABG Hematocrit (37.5 - 50.7 %) 24 L 23 L ABG Hemoglobin (12.5 - 16.9 G/DL) 8.0 L 7.8 L Shayla Test N/A N/A Sodium (134 - 147 mmol/L) 148 H 147 Potassium (3.4 - 5.0 mmol/L) 4.4 4.6 Chloride (100 - 108 mmol/L) 108 108 Ionized Calcium (1.12 - 1.32 MMOL/L) 1.25 1.19 Lactic Acid (0.9 - 1.7 mmol/l) 0.5 L 0.9 Temperature (F) 98.6 98.3 O2 Delivery Device BiPAP Bagging Vent Mode CPAP/PS Vent Rate (/MIN) 24 FiO2 (%) 30 30 PEEP (cmH2O) 7 Pressure Support (cmH2O) 15 Laboratory Tests 03/06 03/06 03/06 03/05 03/05 0547 0313 0111 2312 2254Chemistry Sodium (134 - 147 mEq/L) 148 H 147 Potassium (3.4 - 5.0 mEq/L) 4.4 4.4 Chloride (100 - 108 mEq/L) 111 H 110 H Carbon Dioxide (21 - 33 mEq/l) 27 29 Anion Gap (0 - 20) 15 12 BUN (7 - 18 mg/dL) 46 H 44 H Creatinine (0.6 - 1.3 mg/dL) 3.1 H 2.9 H POC Creatinine (0.8 - 1.3 mg/dL) 3.4 H 3.3 H 2.8 H Glomerular Filtr Rate (70 - 80) 20.7 L 22.4 L Glucose (70 - 110 mg/dL) 135 H 158 H POC Glucose (mg/dL) (70 - 110 MG/DL) 128 H 114 H 116 H Calcium (8.0 - 10.5 mg/dL) 9.1 8.8 Phosphorus (2.5 - 4.9 MG/DL) 5.2 H Magnesium (1.80 - 2.40 mg/dL) 2.60 H 2.69 H Total Bilirubin (0.0 - 1.0 mg/dL) 0.30 Direct Bilirubin (0.0 - 0.30 MG/DL) 0.20 Indirect Bilirubin (MG/DL) 0.10 AST (15 - 37 IUnit/L) 30 ALT (30 - 65 IUnit/L) 15 L Total Alk Phosphatase (20 - 125 IUnit/L) 30 Total Protein (6.4 - 8.2 g/dL) 5.4 L Albumin (3.4 - 5.0 g/dL) 3.40 03/055 2007 2006 1749 1610Chemistry Sodium (134 - 147 mEq/L) 148 H Potassium (3.4 - 5.0 mEq/L) 4.5 Chloride (100 - 108 mEq/L) 109 H Carbon Dioxide (21 - 33 mEq/l) 27 Anion Gap (0 - 20) 16 BUN (7 - 18 mg/dL) 41 H Creatinine (0.6 - 1.3 mg/dL) 2.7 H POC Creatinine (0.8 - 1.3 mg/dL) 3.0 H 2.0 H 2.8 H Glomerular Filtr Rate (70 - 80) 24.4 L Glucose (70 - 110 mg/dL) 217 H POC Glucose (70 - 110 MG/DL) 124 H POC Glucose (mg/dL) (70 - 110 MG/DL) 104 116 H 186 H Calcium (8.0 - 10.5 mg/dL) 9.0 Ionized Calcium [place] (1.09 - 1.30 MMOL/L) 1.11 Magnesium (1.80 - 2.40 mg/dL) 2.58 H 03/05 03/05 03/05 03/05 03/05 1556 1543 1436 1047 1006 Chemistry POC Creatinine (0.8 - 1.3 mg/dL) 2.7 H 2.4 H 2.4 H POC Glucose (70 - 110 MG/DL) 210 H 110 POC Glucose (mg/dL) (70 - 110 MG/DL) 196 H 223 H 88 03/05 03/05 0748 0743 Chemistry Sodium (134 - 147 mEq/L) 148 H Potassium (3.4 - 5.0 mEq/L) 4.6 Chloride (100 - 108 mEq/L) 111 H Carbon Dioxide (21 - 33 mEq/l) 32 Anion Gap (0 - 20) 10 BUN (7 - 18 mg/dL) 37 H Creatinine (0.6 - 1.3 mg/dL) 2.3 H POC Creatinine (0.8 - 1.3 mg/dL) 2.4 H Glomerular Filtr Rate (70 - 80) 29.6 L Glucose (70 - 110 mg/dL) 134 H POC Glucose (mg/dL) (70 - 110 MG/DL) 113 H Calcium (8.0 - 10.5 mg/dL) 8.7 Ionized Calcium [place] (1.09 - 1.30 MMOL/L) 1.14 Magnesium (1.80 - 2.40 mg/dL) 2.35 Laboratory Tests 03/06 03/05 03/05 0118 2334 1052 Hematology WBC (4.5 - 11.0 x10 3/uL) 3.8 L 4.6 7.2 RBC (4.00 - 5.60 x10 6/uL) 2.16 L 2.32 L 2.71 L Hgb (12.5 - 16.9 g/dL) 6.6 L 7.2 L 8.3 L Hct (37.5 - 50.7 %) 20.9 L 22.0 L 25.2 L MCV (81.0 - 99.0 fL) 96.8 94.8 93.0 MCH (27.0 - 33.0 pg) 30.6 31.0 30.6 MCHC (33.0 - 37.0 g/dL) 31.6 L 32.7 L 32.9 L RDW (11.5 - 14.5 %) 17.2 H 17.2 H 17.1 H Plt Count (150 - 400 x10 3/uL) 77 L 84 L 123 L MPV (7.0 - 9.0 fL) 11.4 H 10.9 H 11.0 H Neut % (Auto) (56.0 - 77.0 %) 85.2 H 87.8 H 85.7 H Lymph % (Auto) (14.0 - 32.0 %) 4.2 L 3.2 L 3.6 L [place] % (Auto) (4.8 - 9.0 %) 9.8 H 8.4 10.3 H Eos % (Auto) (0.3 - 3.7 %) 0.0 L 0.0 L 0.0 L Baso % (Auto) (0.0 - 2.0 %) 0.0 0.0 0.0 Neut # (Auto) (2.0 - 7.6 x10 3/uL) 3.22 4.05 6.16 Lymph # (Auto) (1.0 - 3.8 x10 3/uL) 0.16 L 0.15 L 0.26 L [place] # (Auto) (0.1 - 0.8 x10 3/uL) 0.37 0.39 0.74 Eos # (Auto) (0.0 - 0.2 x10 3/uL) 0.00 0.00 0.00 Baso # (Auto) (0.0 - 0.2 x10 3/uL) 0.00 0.00 0.00 Abs Immat Gran (auto) (0.00 - 0.03 x10 3/uL) 0.03 0.03 0.03 Add Manual Diff NO NO NO Immature Gran % (0.0 - 2.0 %) 0.8 0.6 0.4 Nucleated RBC % (0 - 0 %) 0.0 0.0 0.0 Nucleated RBCs # (Man) (0.0 - 0.1 x10 3/uL) 0.00 0.00 0.00 Laboratory Tests 03/05 1849 Urines Ur Random Creatinine (mg/dL) 53.7 Ur Random Sodium (MEQ/L) 14 Laboratory Tests 03/06 03/05 03/05 03/05 0313 2254 1610 0748 Chemistry Magnesium (1.80 - 2.40 mg/dL) 2.60 H 2.69 H 2.58 H 2.35 Radiology data:Recent Impressions:RADIOLOGY - XR ABDOMEN 1V (KUB) 03/05 0838 Report Impression - Status: SIGNED Entered: 03/05/2023 0852 IMPRESSION: No pathologic bowel distention.Impression By: [email or web address] - Davi Walton M.D. Diagnosis, Assessment PlanConsultants: anesthesiology, cardiology, cardiovascular surgery, critical/osteopathy doctor, hospitalist Free Text DxA P NotesFree Text DxA P Notes:1- Severe COPD with exacerbation: As per Pulm2- Recent pulmonary embolism on Eliquis3- NSTEMI/Multivessel coronary artery disease: S/P CBBG, extubated and doing fair5- Hypertension6- History of tobacco use7. Wide complex tachy: Asymptomatic and suggests AFIB/SVT with aberrancy. Respomded to bolus of IV Amio. will increase po amio at 0658 RPT #:[id number] OF REPORTPRProgress [id number]:55:00G.[id number] able for patient [id number]:59:23 [facility] 2023-03-06 01:03:00 [id number] o9sD4BwVCzlERckpLCKMJCgEjl5m3 JZ9MqjCjgqx1bwZN2GD44nh+[id number]:03:91405 9-0084 [place] [address] PATIENT NAME: TEVIN NYE ADMIT DATE: 03/03/23ACCOUNT NO: [id number] ROOM NO: [facility] AGE: 72 REPORT TYPE: eELECTROCARDIOGRAM REPORT SEX: M ADMITTING PHYSICIAN:Luci Villeda MD ATTENDING PHYSICIAN:Luci Villeda MD Order:[id number] Reason : VTACH Test Date/Time Stamp:FriMar 06 2023 01:03:34Blood Pressure : / mmHGVent. Rate : 071 BPM Atrial Rate : 071 BPM P-R Int : 152 ms QRS Dur : 086 ms QT Int : 418 ms P-R-T Axes : 056 -43 045 degrees QTc Int : 454 ms Normal sinus rhythmLeft axis deviationLow voltage QRSAbnormal ECGWhen compared with ECG of 05-MAR-2023 22:26,Significant changes have occurredConfirmed by MD HIGINIO, ANUJ ([id number]) on 03/06/2023 6:03:26 PM Referred By: Self Referred Confirmed by:ANUJ SYLVESTER MD at 1803 PATIENT NAME: TEVIN NYE .[id number] AVAvailable for patient [id number]:03:58 [facility] 2023-03-05 22:26:00 [id number] 1kU8byF2EvM[id number]:26:93644 9-0081 [place] [address] PATIENT NAME: TEVIN NYE ADMIT DATE: 03/03/23ACCOUNT NO: [id number] ROOM NO: G.[id number] AGE: 72 REPORT TYPE: eELECTROCARDIOGRAM REPORT SEX: M ADMITTING PHYSICIAN:Luci Villeda MD ATTENDING PHYSICIAN:Luci Villeda MD Order:[id number] Reason : VTACH Test Date/Time Stamp:FriMar 05 2023 22:26:16Blood Pressure : / mmHGVent. Rate : 120 BPM Atrial Rate : 120 BPM P-R Int : 132 ms QRS Dur : 092 ms QT Int : 338 ms P-R-T Axes : 066 -53 057 degrees QTc Int : 477 ms Sinus tachycardiaLeft axis deviationLow voltage QRSSeptal infarct (cited on or before 04-MAR-2023)Possible Lateral infarct , age undeterminedAbnormal ECGWhen compared with ECG of 05-MAR-2023 20:08,No significant change was foundConfirmed by MD SYLVESTER GERARD ([id number]) on 03/06/2023 6:03:07 PM Referred By: Samia Villeda Confirmed by:ANJU SYLVESTER MD at 1803 PATIENT NAME: TEVIN NYE .[id number] AVAvailable for patient [id number]:03:37 [facility] 2023-03-05 20:08:00 [id number] 5POPSkpTQ1E2Zeo/[id number]:08:60087 [id number] [id number] PATIENT NAME: TEVIN NYE ADMIT DATE: 03/03/23ACCOUNT NO: [id number] ROOM NO: [facility] AGE: 72 REPORT TYPE: eELECTROCARDIOGRAM REPORT SEX: M ADMITTING PHYSICIAN:Luci Villeda MD ATTENDING PHYSICIAN:Luci Villeda MD Order:[id number] Reason : VTACH Test Date/Time Stamp:FriMar 05 2023 20:08:38Blood Pressure : / mmHGVent. Rate : 096 BPM Atrial Rate : 096 BPM P-R Int : 122 ms QRS Dur : 086 ms QT Int : 356 ms P-R-T Axes : 056 -56 069 degrees QTc Int : 449 ms Normal sinus rhythmLeft axis deviationPulmonary disease patternSeptal infarct (cited on or before 04-MAR-2023)Abnormal ECGWhen compared with ECG of 05-MAR-2023 02:33,No changesConfirmed by MD HIGINIO, ANUJ ([id number]) on 03/06/2023 6:02:59 PM Referred By: Samia Villeda Confirmed by:ANUJ SYLVESTER MD at 1802 PATIENT NAME: TEVIN NYE .[id number] AVAvailable for patient [id number]:03:28 [facility] 2023-03-05 17:19:00 [id number]+igxqRt NwVaBUa9CDdpMyHUPh/[id number]:19:00 [facility] ([facility])Cardiothoracic Surgery ProgREPORT#:[id number] REPORT STATUS: SignedDATE:03/05/23 TIME: 1719 PATIENT: TEVIN NYE UNIT #: [id number]#: [id number] [address] AGE: 73 SEX: M ATTEND: Luci Villeda MDADM AUTHOR: Luci Villeda MD * ALL edits or amendments must be made on the electronic/computer document * GeneralPost-op: day 1Status post:03/04/23CABG x 4 (MCCORMICK-LAD,SVG-Renea, SVG-OM, SVG-PDA)ALAAEVH (LGSV)Posterior pericardiotomy SubjectiveChief complaint:chest painFollow up CABG Review of SystemsConstitutional:Denies: chills, fatigue, generalized weakness. Skin:Denies: abrasion, bruising, laceration. Allergy/Immun:Denies: allergic reaction, anaphylaxis, rhinorrhea. Eyes:Denies: redness, visual loss/blurred, eye pain. ENT:Denies: ear ringing, throat swelling, toothache. Respiratory:Denies: [place] (dyspnea on exertion), pneumonia, SOB. Cardiovascular:Denies: chest pain, edema, orthopnea. GI:Denies: abdominal pain, anorexia, melena, nausea. :Denies: dysuria, flank pain. Musculoskeletal:Denies: arthritis, extremity pain, lumbar pain. Heme:Denies: adenopathy, bleeding, petechiae. Endocrine:Denies: cold intolerance, polydipsia, weight gain. Neuro:Denies: confusion, dizziness, seizure, syncope. All systems rev neg: except as marked Objective GeneralVS/I OLast Documented: Result Date Time Pulse Ox 100 03/05 1651 B/P 142/60 03/05 1651 B/P Mean 86 03/05 1651 Temp 37.2 03/05 1651 Pulse 92 03/05 1651 Resp 13 03/05 1651 FiO2 61 03/05 1605 O2 Delivery BiPAP 03/05 0830 O2 Flow Rate 3 03/05 0300 24 hour I O ending at 0700: 03/05 0700 03/04 1900 Intake Total 3628.00 Output Total 1045 50 Balance 2583.00 -50 Intake, IV 3038.00 Intake, Oral 240 Intake, 350 Packed Cells Output, Chest 720 Tube Drainage Output, Urine 325 50 Patient 88.3 kg Weight Weight Bed scale Measurement Method PATIENT WEIGHT: Weight (lb): 194Weight (oz): 10.69Weight (kg): 88.300 Dietitian Nutrition assessmentThe data set between the solid lines has been imported from the dietitian's assessment. BMI Calculated: 30.5Nutrition related diagnosis: Nutrition diagnosis details: Nutrition problem: Increased nutrient needsNutrition etiology: Acute illnessNutrition signs and symptoms: ESTIMATED NEEDS S/P SURGERYNutrition prescription: 1. RECOMMEND ADVANCE TO A CCD5 CARDIAC DIET APPROPRIATE. 2. PROVIDE GLUCERNA TID WITH MEALS. 3. HEALTHY HEART DIET EDUCATIONPRIOR TO DISCHARGE. 4. MONITOR PO, WT, LABS, BM.Dietitian name: Purvi Garay, DIETAssessment completed: 03/05/23 Physical ExamGeneral appearance: alert, awake, orientedWound/incision: Location:sternal Site condition: dressing clean dry, dressing intactHEENT: anicteric, mucosal membranes moist, pupils reactive to lightNeck: full range of motion, non-tenderCardiovascular: normal heart sounds, regular rate rhythmRespiratory: decreased breath sounds, aerating well, symmetric expansionAbdomen: soft, non-tenderGenitourinary: no bladder distentionExtremities: dry, moves allMusculoskeletal: full range of motionNeuro/SALES ASSISTANT: alert, oriented X 3Skin: dry, intactPsychiatry: normal affect, normal mood Current MedicationsMedications:Active Meds + DC'd Last 24 HrsIpratropium [place] (ATROVENT) 500 MCG RTQ2H PRN PRN INH Cyanocobalamin (Vitamin B-12 500 mcg tab) 500 MCG DAILY PO Ferrous Sulfate (FERROUS SULFATE) 325 MG DAILY PO Bisacodyl (DULCOLAX) 10 MG ONCE PRN RECTAL Magnesium Hydroxide (MILK OF MAGNESIA) 30 ML ONCE PRN PO Atorvastatin Calcium (LIPITOR) 40 MG 2100 PO Acetaminophen (OFIRMEV 10MG/ML) 100 ML ONCE ONE IV (DC) Budesonide (PULMICORT RESPULES) 0.5 MG RTBID INH Formoterol Fumarate (PERFOROMIST) 20 MCG RTBID NEB Methylprednisolone Sodium Succinate (Solu-Medrol 40 MG Vial) 40 MG Q12H IV Sterile Water (WATER FOR INJECTION) 1 ML ASDIR PRN IV Tamsulosin HCl (Flomax 0.4 mg) 0.8 MG PC BK PO Hydrocortisone Sodium Succinate (Solu-CORTEF) 25 MG Q8H IV (DC) Dopamine HCl/Dextrose (DOPamine 400MG/D5W 250ML) 250 ML ASDIR IV Magnesium Citrate (MAGNESIUM CITRATE) 150 ML ONCE ONE PO (DC) Clopidogrel Bisulfate (Plavix) 75 MG DAILY PO Mupirocin (BACTROBAN 2% 22 GM OINTMENT) 1 APPLIC BID NASAL Mupirocin (BACTROBAN 2% 22 GM OINTMENT) 1 APPLIC BID NASAL (CAN) Polyethylene Glycol (MIRALAX) 17 GM DAILY PO Amiodarone HCl (AMIODARONE HCL) 450 MG ASDIR IV (CKD) Dextrose/Water (D5%W NON-DEHP) 250 MLPantoprazole (PROTONIX) 40 MG DAILY@0600 PO Sodium Chloride (0.45% Sodium Chloride) 500 ML BOLUS ONCE ONE IV (DC) Vancomycin HCl (VANCOMYCIN HCL) 1,000 MG ONCE ONE IV (DC) Sodium Chloride (SODIUM CHLORIDE 0.9%) 250 MLOxycodone HCl (ROXICODONE) 5 MG Q4H PRN PRN PO (DC) Aspirin (ASPIRIN) 81 MG DAILY PO Calcium Chloride (CALCIUM CHLORIDE) 2 GM ONCE ONE IV (DC) Sodium Chloride (SODIUM CHLORIDE 0.9%) 100 MLAlbumin Human (ALBUMINAR 5% 12.5GM/250ML) 250 ML Q30M IV (DC) Hydrocortisone Sodium Succinate (Solu-CORTEF) 25 MG Q8HR IV (CAN) Amiodarone HCl (CORDARONE) 200 MG TID PO Docusate Sodium (COLACE) 100 MG BID PO Gabapentin (NEURONTIN) 200 MG BID PO (DC) Metoprolol Tartrate (LOPRESSOR) 12.5 MG Q12HR PO Sennosides (Senna Lax 8.6 MG TABLET) 17.2 MG BEDTIME PO Sugammadex Sodium (BRIDION) 0 .STK-MED ONE IV (DC) Ipratropium [place] (ATROVENT) 500 MCG RTQ4H INH Sugammadex Sodium (BRIDION) 0 .STK-MED ONE IV (DC) Sodium Bicarbonate (SODIUM BICARBONATE) 0 .STK-MED ONE IV (DC) Naloxone HCl (NARCAN) 0.4 MG ONCE ONE IV (DC) Naloxone HCl (NARCAN) 0 .STK-MED ONE IV (DC) Acetaminophen (TYLENOL) 650 MG Q4H PRN PRN PO Acetaminophen (TYLENOL) 650 MG Q4H PRN PRN RECTAL Albumin Human (ALBUMINAR 25%) 25 GM ASDIR PRN IV (DC) Calcium Chloride (CALCIUM CHLORIDE) 1 GM ASDIR PRN IV Dextrose/Water (DEXTROSE 10% IN WATER) 125 ML ASDIR PRN IV (CKD) Dextrose/Water (DEXTROSE 10% IN WATER) 250 ML ASDIR PRN IV (CKD) Epinephrine (ADRENALIN CHLORIDE) 4 MG ASDIR IV Dextrose/Water (DEXTROSE 5% WATER) 246 MLGlucagon (GLUCAGON) 1 MG ASDIR PRN IM Insulin Human Regular (HumuLIN R) 100 UNIT ASDIR IV (CKD) Sodium Chloride (SODIUM CHLORIDE 0.9%) 99 MLMagnesium Sulfate (MAGNESIUM SULFATE 4GM/SWFI 100ML) 100 ML ASDIR PRN IV Magnesium Sulfate (MAGNESIUM SULFATE 2GM/SWFI 50ML) 50 ML ASDIR PRN IV Magnesium Sulfate/Dextrose (MAGNESIUM SULFATE 1GM/D5W 100ML) 100 ML ASDIR PRN IV Nitroglycerin/Dextrose (NITROGLYCERIN 50,000MCG/D5W 250ML) 250 ML ASDIR IV Norepinephrine Bitartrate (NOREPINEPHRINE 8 MG/NS 250 ML) 250 ML TITRATE IV Ondansetron HCl (ZOFRAN) 4 MG Q6H PRN PRN IV Potassium Chloride (KCL 20MEQ/SWFI 100ML) 100 ML ASDIR PRN IV Sodium Bicarbonate (SODIUM BICARBONATE) 50 MEQ ASDIR PRN IV Sodium Chloride (SODIUM CHLORIDE 0.9%) 1,000 ML .Q20H IV Sodium Chloride (SODIUM CHLORIDE 0.9%) 250 ML Q24H IV Vancomycin HCl (VANCOMYCIN HCL) 1,000 MG Q12H IV (CAN) Sodium Chloride (SODIUM CHLORIDE 0.9%) 250 MLClindamycin Phosphate (CLEOCIN 900 MG/NS 50 ML) 50 ML PREOP ONCALL IV (DC) Vancomycin HCl (Vancomycin 1,250 mg Inj (B2)) 1,250 MG PREOP ONCALL IV (DC) Sodium Chloride (SODIUM CHLORIDE 0.9%) 250 MLVerapamil HCl (ISOPTIN) 16.6 MG .Q24H ONE IV (DC) Heparin Sodium (Porcine) (HEPARIN SODIUM) 1,660 UNIT Sodium Bicarbonate (SODIUM BICARBONATE) 0.7 ML Nitroglycerin/Dextrose (NITROGLYCERIN 50MG/D5W 250ML) 8.3 MG Lactated Ringer's (LACTATED RINGERS) 949.5 MLBudesonide (PULMICORT RESPULES) 0.5 MG RTBID INH (DC) Formoterol Fumarate (PERFOROMIST) 20 MCG RTBID NEB (DC) Doxycycline Hyclate (VIBRAMYCIN) 100 MG Q12HR IV (DC) Sodium Chloride (SODIUM CHLORIDE 0.9% 100 ML) 100 MLGuaifenesin (MUCINEX 600MG TAB SA) 600 MG Q12HR PO (DC) Mupirocin (BACTROBAN 2% 22 GM OINTMENT) 1 APPLIC BID NASAL (DC) Methylprednisolone Sodium Succinate (Solu-Medrol 40 MG Vial) 40 MG Q8H IV (DC) Sterile Water (WATER FOR INJECTION) 1 ML ASDIR PRN IV (DC) Heparin Sodium (HEPARIN 5000 UNITS/ML) 0 ASDIR PRN IV (DC) Heparin Sodium (Porcine) (HEPARIN 25,000 UNITS/ 1/2NS 500ML) 500 ML ASDIR IV (DC) Nitroglycerin/Dextrose (NITROGLYCERIN 50,000MCG/D5W 250ML) 250 ML ASDIR IV (DC) ResultsFindings/Data:Laboratory Tests 03/05 03/05 03/05 03/05 1543 1436 1047 0743 Blood Gas Puncture Site Art Line Art Line Art Line Art Line O2 Saturation (90 - 100 %) 97.4 99.5 97.6 95.1 ABG pH (7.35 - 7.45) 7.275 *L 7.317 L 7.327 L 7.343 L ABG pCO2 (35.0 - 45 mmHg) 62.7 *H 55.6 *H 63.4 *H 58.9 *H ABG pO2 (80 - 100.0 mmHg) 110.1 H 185.9 H 108.3 H 82.1 ABG PO2/FiO2 Ratio (mm/Hg) 464.75 361.00 273.66 ABG HCO3 (22.0 - 26.0 MMOL/L) 29.1 *H 28.4 *H 33.2 *H 32.0 *H ABG Total CO2 31.0 30.1 35.2 33.8 ABG Base Excess (-4.0 - 4.0 MMOL/L) 2.3 2.3 7.2 H 6.3 H ABG Hematocrit (37.5 - 50.7 %) 25 L 23 L 24 L 23 L ABG Hemoglobin (12.5 - 16.9 G/DL) 8.4 L 7.9 L 8.0 L 7.8 L Shayla Test N/A N/A N/A Sodium (134 - 147 mmol/L) 145 145 148 H 147 Potassium (3.4 - 5.0 mmol/L) 4.4 4.4 4.4 4.6 Chloride (100 - 108 mmol/L) 110 H 112 H 108 108 Ionized Calcium (1.12 - 1.32 MMOL/L) 1.21 1.17 1.25 1.19 Lactic Acid (0.9 - 1.7 mmol/l) 0.5 L 0.8 L 0.5 L 0.9 Temperature (F) 98.8 98.6 98.3 O2 Delivery Device BiPAP BiPAP BiPAP Bagging Vent Mode CPAP/PS Vent Rate (/MIN) 20 24 FiO2 (%) 40 30 30 Tidal Volume (ml) 450 PEEP (cmH2O) 8 7 Pressure Support (cmH2O) 25 15 03/05 03/05 03/05 03/05 0635 0532 0442 0209 Blood Gas Puncture Site Art Line Art Line Art Line Art Line O2 Saturation (90 - 100 %) 97.4 96.9 96.2 96.5 ABG pH (7.35 - 7.45) 7.322 L 7.259 *L 7.218 *L 7.312 L ABG pCO2 (35.0 - 45 mmHg) 58.5 *H 66.1 *H 77.2 *H 65.1 *H ABG pO2 (80 - 100.0 mmHg) 105.9 H 106.5 H 103.7 H 97.2 ABG PO2/FiO2 Ratio (mm/Hg) 302.57 266.25 ABG HCO3 (22.0 - 26.0 MMOL/L) 30.3 *H 29.6 *H 31.5 *H 33.0 *H ABG Total CO2 32.1 31.7 33.8 35.0 ABG Base Excess (-4.0 - 4.0 MMOL/L) 4.2 H 2.5 3.7 6.7 H ABG Hematocrit (37.5 - 50.7 %) 21 L 22 L 24 L 21 L ABG Hemoglobin (12.5 - 16.9 G/DL) 7.1 L 7.4 L 8.0 L 7.2 L Sodium (134 - 147 mmol/L) 147 145 149 H 147 Potassium (3.4 - 5.0 mmol/L) 4.6 4.7 4.7 4.4 Chloride (100 - 108 mmol/L) 108 109 H 108 108 Ionized Calcium (1.12 - 1.32 MMOL/L) 1.22 1.23 1.30 1.33 H Lactic Acid (0.9 - 1.7 mmol/l) 1.0 1.7 2.0 H 1.8 H O2 Delivery Device BiPAP BiPAP 4L HFNC Vent Mode 08/12 08/12 4L HFNC FiO2 (%) 35 40 03/04 1907Blood Gas Puncture Site Art Line Art Line Art Line Art Line O2 Saturation (90 - 100 %) 93.3 95.7 99.9 97.9 ABG pH (7.35 - 7.45) 7.328 L 7.337 L 7.342 L 7.204 *L ABG pCO2 (35.0 - 45 mmHg) 53.9 *H 49.8 H 50.2 *H 50.2 *H ABG pO2 (80 - 100.0 mmHg) 72.6 L 80.9 382.6 *H 125.4 H ABG PO2/FiO2 Ratio (mm/Hg) 202.25 382.60 313.50 ABG HCO3 (22.0 - 26.0 MMOL/L) 28.5 *H 27.1 H 27.2 H 19.8 L ABG Total CO2 30.2 28.7 28.7 21.3 ABG Base Excess (-4.0 - 4.0 2.4 1.0 1.5 -8.2 LMMOL/L) ABG Hematocrit (37.5 - 50.7 %) 22 L 23 L 23 L 23 L ABG Hemoglobin (12.5 - 16.9 G/DL) 7.4 L 7.9 L 7.7 L 7.8 L Sodium (134 - 147 mmol/L) 148 H 148 H 146 140 Potassium (3.4 - 5.0 mmol/L) 3.9 4.0 3.7 3.5 Chloride (100 - 108 mmol/L) 108 108 105 108 Ionized Calcium (1.12 - 1.32 1.10 L 1.10 L 1.21MMOL/L) Lactic Acid (0.9 - 1.7 mmol/l) 4.3 *H 6.5 *H 5.0 *H 3.9 H Temperature (F) 97.7 96.1 O2 Delivery Device 4L HFNC Adult Vent Adult Vent Vent Mode SPONT AC Vent Rate (/MIN) 18 FiO2 (%) 40 100 40 Tidal Volume (ml) 480 PEEP (cmH2O) 5 5 Pressure Support (cmH2O) 20 03/04 03/04 1758 1733 Blood Gas Puncture Site Art Line O2 Saturation (90 - 100 %) 99.4 100.0 ABG pH (7.35 - 7.45) 7.280 *L 7.323 L ABG pCO2 (35.0 - 45 mmHg) 43.0 41.3 ABG pO2 (80 - 100.0 mmHg) 175.5 H 402.1 *H ABG PO2/FiO2 Ratio (mm/Hg) 351.00 ABG HCO3 (22.0 - 26.0 MMOL/L) 20.2 L 21.4 L ABG Total CO2 21.5 22.7 ABG Base Excess (-4.0 - 4.0 MMOL/L) -6.5 L -4.4 L ABG Hematocrit (37.5 - 50.7 %) 20 L 25 L ABG Hemoglobin (12.5 - 16.9 G/DL) 6.9 L 8.3 L Shayla Test N/A Sodium (134 - 147 mmol/L) 141 143 Potassium (3.4 - 5.0 mmol/L) 3.3 L 3.3 L Chloride (100 - 108 mmol/L) 107 109 H Ionized Calcium (1.12 - 1.32 MMOL/L) 1.21 1.22 Lactic Acid (0.9 - 1.7 mmol/l) 3.2 H O2 Delivery Device Adult Vent Vent Mode AC Vent Rate (/MIN) 18 FiO2 (%) 50 Tidal Volume (ml) 480 PEEP (cmH2O) 5 Laboratory Tests 03/05 03/05 03/05 03/05 03/05 1610 1556 1543 1436 1047Chemistry Sodium (134 - 147 mEq/L) 148 H Potassium (3.4 - 5.0 mEq/L) 4.5 Chloride (100 - 108 mEq/L) 109 H Carbon Dioxide (21 - 33 mEq/l) 27 Anion Gap (0 - 20) 16 BUN (7 - 18 mg/dL) 41 H Creatinine (0.6 - 1.3 mg/dL) 2.7 H POC Creatinine (0.8 - 1.3 mg/dL) 2.7 H 2.4 H 2.4 H Glomerular Filtr Rate (70 - 80) 24.4 L Glucose (70 - 110 mg/dL) 217 H POC Glucose (70 - 110 MG/DL) 210 H POC Glucose (mg/dL) (70 - 110 MG/DL) 196 H 223 H 88 Calcium (8.0 - 10.5 mg/dL) 9.0 Magnesium (1.80 - 2.40 mg/dL) 2.58 H 03/05 03/05 03/05 03/05 03/05 1006 0748 0743 0635 0532Chemistry Sodium (134 - 147 mEq/L) 148 H Potassium (3.4 - 5.0 mEq/L) 4.6 Chloride (100 - 108 mEq/L) 111 H Carbon Dioxide (21 - 33 mEq/l) 32 Anion Gap (0 - 20) 10 BUN (7 - 18 mg/dL) 37 H Creatinine (0.6 - 1.3 mg/dL) 2.3 H POC Creatinine (0.8 - 1.3 mg/dL) 2.4 H 1.8 H 1.9 H Glomerular Filtr Rate (70 - 80) 29.6 L Glucose (70 - 110 mg/dL) 134 H POC Glucose (70 - 110 MG/DL) 110 POC Glucose (mg/dL) (70 - 110 MG/DL) 113 H 126 H 146 H Calcium (8.0 - 10.5 mg/dL) 8.7 Ionized Calcium [place] (1.09 - 1.30 1.14MMOL/L) Magnesium (1.80 - 2.40 mg/dL) 2.35 03/05 03/05 03/05 03/05 03/04 0442 0209 0201 0201 2348Chemistry Sodium (134 - 147 mEq/L) 150 H Potassium (3.4 - 5.0 mEq/L) 4.4 Chloride (100 - 108 mEq/L) 113 H Carbon Dioxide (21 - 33 mEq/l) 30 Anion Gap (0 - 20) 12 BUN (7 - 18 mg/dL) 30 H Creatinine (0.6 - 1.3 mg/dL) 1.9 H POC Creatinine (0.8 - 1.3 mg/dL) 2.1 H 2.1 H Glomerular Filtr Rate (70 - 80) 37.3 L Glucose (70 - 110 mg/dL) 132 H POC Glucose (mg/dL) (70 - 110 MG/DL) 126 H 121 H Lactic Acid (0.4 - 1.9 mmol/L) 2.4 H 4.2 *H Calcium (8.0 - 10.5 mg/dL) 9.3 Magnesium (1.80 - 2.40 mg/dL) 2.66 H Total Bilirubin (0.0 - 1.0 mg/dL) 0.40 Direct Bilirubin (0.0 - 0.30 MG/DL) 0.20 Indirect Bilirubin (MG/DL) 0.20 AST (15 - 37 IUnit/L) 40 H ALT (30 - 65 IUnit/L) 13 L Total Alk Phosphatase (20 - 125 26IUnit/L) Total Protein (6.4 - 8.2 g/dL) 5.1 L Albumin (3.4 - 5.0 g/dL) 3.40 03/04 03/04 03/04 03/04 03/04 2259 2132 2132 2056 1942Chemistry Sodium (134 - 147 mEq/L) 151 H Potassium (3.4 - 5.0 mEq/L) 4.1 Chloride (100 - 108 mEq/L) 110 H Carbon Dioxide (21 - 33 mEq/l) 27 Anion Gap (0 - 20) 18 BUN (7 - 18 mg/dL) 29 H Creatinine (0.6 - 1.3 mg/dL) 1.8 H POC Creatinine (0.8 - 1.3 mg/dL) 1.6 H 1.8 H 0.9 Glomerular Filtr Rate (70 - 80) 39.7 L Glucose (70 - 110 mg/dL) 212 H POC Glucose (mg/dL) (70 - 110 MG/DL) 178 H 214 H 219 H Lactic Acid (0.4 - 1.9 mmol/L) 8.6 *H Calcium (8.0 - 10.5 mg/dL) 7.6 L Ionized Calcium [place] (1.09 - 1.30 0.95 LMMOL/L) Total Bilirubin (0.0 - 1.0 mg/dL) 0.70 Direct Bilirubin (0.0 - 0.30 MG/DL) 0.40 H Indirect Bilirubin (MG/DL) 0.30 AST (15 - 37 IUnit/L) 40 H ALT (30 - 65 IUnit/L) 11 L Total Alk Phosphatase (20 - 125 28IUnit/L) Total Protein (6.4 - 8.2 g/dL) 4.8 L Albumin (3.4 - 5.0 g/dL) 2.80 L 03/04 03/04 03/04 03/04 1907 1758 1743 1733 Chemistry Sodium (134 - 147 mEq/L) 143 Potassium (3.4 - 5.0 mEq/L) 3.3 L Chloride (100 - 108 mEq/L) 110 H Carbon Dioxide (21 - 33 mEq/l) 22 Anion Gap (0 - 20) 14 BUN (7 - 18 mg/dL) 37 H Creatinine (0.6 - 1.3 mg/dL) 1.7 H POC Creatinine (0.8 - 1.3 mg/dL) 1.2 1.5 H 1.4 H Glomerular Filtr Rate (70 - 80) 42.6 L Glucose (70 - 110 mg/dL) 225 H POC Glucose (mg/dL) (70 - 110 MG/DL) 223 H 230 H 196 H Calcium (8.0 - 10.5 mg/dL) 8.3 Magnesium (1.80 - 2.40 mg/dL) 2.98 H Laboratory Tests 03/04 03/04 1743 1731 Coagulation INR (0.8 - 1.2) 1.5 H PTT ([place]) (25.0 - 39.5 Seconds) 30.8 PT Patient/Control Mix (9.3 - 12.9 SECONDS) 16.4 H Activated Coag Time (74 - 137 SEC) 149 H Laboratory Tests 03/05 03/05 03/04 03/04 1052 0201 2132 1743Hematology WBC (4.5 - 11.0 x10 3/uL) 7.2 3.9 L 5.2 9.1 RBC (4.00 - 5.60 x10 6/uL) 2.71 L 2.51 L 2.80 L 2.46 L Hgb (12.5 - 16.9 g/dL) 8.3 L 7.7 L 8.6 L 7.5 L Hct (37.5 - 50.7 %) 25.2 L 22.9 L 25.4 L 23.3 L MCV (81.0 - 99.0 fL) 93.0 91.2 90.7 94.7 MCH (27.0 - 33.0 pg) 30.6 30.7 30.7 30.5 MCHC (33.0 - 37.0 g/dL) 32.9 L 33.6 33.9 32.2 L RDW (11.5 - 14.5 %) 17.1 H 16.2 H 15.6 H 14.4 Plt Count (150 - 400 x10 3/uL) 123 L 88 L 92 L 109 L MPV (7.0 - 9.0 fL) 11.0 H 11.0 H 10.8 H 10.8 H Neut % (Auto) (56.0 - 77.0 %) 85.7 H 86.9 H 86.5 H 84.1 H Lymph % (Auto) (14.0 - 32.0 %) 3.6 L 3.1 L 3.3 L 6.5 L [place] % (Auto) (4.8 - 9.0 %) 10.3 H 9.5 H 8.7 8.1 Eos % (Auto) (0.3 - 3.7 %) 0.0 L 0.0 L 0.0 L 0.2 L Baso % (Auto) (0.0 - 2.0 %) 0.0 0.0 0.2 0.1 Neut # (Auto) (2.0 - 7.6 x10 3/uL) 6.16 3.39 4.49 7.61 H Lymph # (Auto) (1.0 - 3.8 x10 3/uL) 0.26 L 0.12 L 0.17 L 0.59 L [place] # (Auto) (0.1 - 0.8 x10 3/uL) 0.74 0.37 0.45 0.73 Eos # (Auto) (0.0 - 0.2 x10 3/uL) 0.00 0.00 0.00 0.02 Baso # (Auto) (0.0 - 0.2 x10 3/uL) 0.00 0.00 0.01 0.01 Abs Immat Gran (auto) (0.00 - 0.03 0.03 0.02 0.07 H 0.09 Hx10 3/uL) Add Manual Diff NO NO NO NO Immature Gran % (0.0 - 2.0 %) 0.4 0.5 1.3 1.0 Nucleated RBC % (0 - 0 %) 0.0 0.0 0.0 0.0 Nucleated RBCs # (Man) (0.0 - 0.1 0.00 0.00 0.00 0.00x10 3/uL) Platelet Estimate (ADEQUATE THOUSAND) 140-175 Plt Morphology Comment NORMAL Radiology data:Recent Impressions:RADIOLOGY - XR CHEST 1 V 03/04 1822 Report Impression - Status: SIGNED Entered: 03/04/20231936 IMPRESSION: 1. Lines and tubes are in satisfactory position. 2. St. Mild bibasilar atelectasis. ernal wires are seen Impression By: Jose Juan Schuler M.D.CAT SCAN - CT HEAD/BRAIN W/O CONT 03/04 1933 Report Impression - Status: SIGNED Entered: 03/04/20231939 IMPRESSION: 1. No acute intracranial abnormality. 2. Chronic ischemic changes are present as described. 3. There is mild acute and chronic paranasal sinus disease. ASSESSMENT: ASPECTS ([place] Stroke Program Early CT Score) is 10. Impression By: Jose Juan Schuler M.D.RADIOLOGY - XR CHEST 1 V 03/05 0501 Report Impression - Status: SIGNED Entered: 03/05/2023 0827 IMPRESSION: 1. Unchanged mild bibasilar airspace disease. 2. Lines and tubes, as above. Impression By: [email or web address] - Margarito Borges M.D.RADIOLOGY - XR ABDOMEN 1V (KUB) 03/05 0838 Report Impression - Status: SIGNED Entered: 03/05/2023 0852 IMPRESSION: No pathologic bowel distention.Impression By: [email or web address] - Davi Walton M.D. Results: labs reviewed, vital signs stable, rythm personally rev'd, x-ray personally reviewed, current med profile rev'd Diagnosis, Assessment PlanHospital course to date:This is a pleasant 72 year old male with past medical history of hypertension, dyslipidemia, DM-2 (on insulin), former smoker (quit 2018), BPH, prostate CA s/pradiation, COPD (uses inhaler at home, no home oxygen), and PE (November 2022 on eliquis) who presented to [facility] with chest pain, dyspnea on exertion, and NSTEMI. Coronary angiogram was done and revealed severe multivessel coronary artery disease. Patient was then transferred to [facility] for CV surgery evaluation and need for CABG. PLAN Admit patient to CVICUInitiate preop workupIncentive spirometer teachingCarotid ultrasoundBLE vein mappingCT chest non-contrastUA to r/o UTIEchocardiogramHeparin and Nitro dripConsult pulmonary, cardiology, and intensivistCoronary angiogram reviewed and patient will benefit from surgical revascularizaton. The surgery, risks involved, STS score, benefits, complications and alternatives were explained to the patient and his brother. He acknowledged understanding and is willing to proceed. We will tentatively schedule him for surgery tomorrow morning.Further recommendations to follow. 03/04/23CABG x 4 (MCCORMICK-LAD,SVG-Renea, SVG-OM, SVG-PDA)ALAAEVH (LGSV)Posterior pericardiotomy 03/05/23POD 1Patient alert, awake, and orientedLabs and CXR reviewedOn bipap 12/5 40%, wean off as toleratedTrend abgsWean off levo as toleratedKeep both chest tubesMonitor strict I Os and renal functionPT/OT, ambulate, OOB in chairDVT ppx with SCDsMonitor patient closely in CVICU Consultants: anesthesiology, cardiology, cardiovascular surgery, critical/osteopathy doctor, hospitalist at 2030 RPT #:[id number] OF REPORTPRProgress [id number]:19:00G.[id number] able for patient [id number]:31:47 [facility] 2023-03-05 16:57:00 [id number] [id number]/nTJCr5PerukRixdbXKXQkSM AlFu2mkd+UVb/CjMNPPMj0nB+jz3961-05-17U61:57:00 [facility] CenterCritical [facility] Progress NoteREPORT#:[id number] REPORT STATUS: SignedDATE:03/05/23 TIME: 1656 PATIENT: TEVIN NYE UNIT #: [id number]#: [id number] [address] AGE: 72 SEX: M ATTEND: Luci Villeda [facility] AUTHOR: Dina Mccain MD * ALL edits or amendments must be made on the electronic/computer document * SubjectiveChief complaint: Dyspnea Wheezing Chest pain/Unstable anginaHPI: Tevin Nye is a 72-year-old gentleman with past medical history significant for hypertension, diabetes, dyslipidemia, former smoker quit in 2008, BPH, prostate cancer status postradiation severe COPD, not home oxygen dependent, severe left carotid stenosis, who was admitted to the medical floor with diagnosis of NSTEMI. He was found to have severe multivessel coronary disease on cardiac catheterization. Patient also had shortness of breath and wheezing. He was seen by pulmonology and started on steroid therapy along with nebulizer treatments. Patient underwent elective coronary artery bypass grafting surgery and received 4 jumps along with isolation of left atrial appendage. He came outof the OR with norepinephrine at 4 mcg and epinephrine at 2 mcg. EF was normal. Patient received parasternal block. Intraoperatively he received 1.5 L of crystalloids, 250 mL of Cell Saver, hemoglobin was 8.3 g/dL but on arrival his latest hemoglobin is 6.9 g/dL. Patient has been ordered 2 units of packed red cells. Intra-Op urine output was 425 mL and EBL was 100 mL. Patient received fentanyl and last neuromuscular blockade dose was at 3:15 PM. Patient was givenhydrocortisone 100 mg IV at 2:45 PM for chronic steroid dependence. He is currently on assist-control at 18 tidal volume 480 PEEP of 5 and 50% FiO2 and ismoving tidal volumes at 470+. Vital signs are stable with heart rate 82 sinus rhythm, blood pressure 95/41 mmHg, pulse ox 100% while on 50% FiO2 and respiratory rate is 14. Chest tube output is minimal at 3 mm each. Patient wasordered albumin 25% to 50 mL. Pupils are bilaterally symmetrical and reactive to light measuring 3 mm on each side. Lab work upon arrival in the CVICU room #2201 revealed a potassium of 3.3, glucose 230, creatinine 1.46 mg/dL, hemoglobinof 6.9 g/dL and hematocrit of 20%. Tevin Gonzalez is a 72 y.o. male with PMH of hypertension, dyslipidemia, diabetes, former smoker (quit 2008), BPH, prostate CA s/p radiation, COPD (uses inhaler at home, no home oxygen), and PE (November 2022 on eliquis) who presented to [facility] with chest pain, dyspnea on exertion, and NSTEMI. Coronary angiogram was done and revealed severe multivessel coronary artery disease. Patient was then transferred to [facility] for CV surgery evaluation and need for CABG. on the floor he had chest pain at rest and was transferred to the ICU for nitroglycerin drip and preoperative workup. Also noted to have chest pain - which he states is better and related to when he coughs. Currently without any pain. Patient underwent elective CABG x5 and isolation of left atrial appendage on 03/04/2023. Comments:Interval history- Patient was placed on BiPAP last night Urine output about 25 cc/h.Creatinine worsening. Objective GeneralVS/I OLast Documented: Result Date Time Pulse Ox 100 03/05 1651 B/P 142/60 03/05 1651 B/P Mean 86 03/05 1651 Temp 37.2 03/05 1651 Pulse 92 03/05 1651 Resp 13 03/05 1651 FiO2 61 03/05 1605 O2 Delivery BiPAP 03/05 0830 O2 Flow Rate 3 03/05 0300 24 hour I O ending at 0700: 03/05 0700 03/04 1900 Intake Total 3628.00 Output Total 1045 50 Balance 2583.00 -50 Intake, IV 3038.00 Intake, Oral 240 Intake, 350 Packed Cells Output, Chest 720 Tube Drainage Output, Urine 325 50 Patient 88.3 kg Weight Weight Bed scale Measurement Method PATIENT WEIGHT: Weight (lb): 194Weight (oz): 10.69Weight (kg): 88.300 Medications:Active Meds + DC'd Last 24 HrsIpratropium [place] (ATROVENT) 500 MCG RTQ2H PRN PRN INH Cyanocobalamin (Vitamin B-12 500 mcg tab) 500 MCG DAILY PO Ferrous Sulfate (FERROUS SULFATE) 325 MG DAILY PO Bisacodyl (DULCOLAX) 10 MG ONCE PRN RECTAL Magnesium Hydroxide (MILK OF MAGNESIA) 30 ML ONCE PRN PO Atorvastatin Calcium (LIPITOR) 40 MG 2100 PO Acetaminophen (OFIRMEV 10MG/ML) 100 ML ONCE ONE IV (DC) Budesonide (PULMICORT RESPULES) 0.5 MG RTBID INH Formoterol Fumarate (PERFOROMIST) 20 MCG RTBID NEB Methylprednisolone Sodium Succinate (Solu-Medrol 40 MG Vial) 40 MG Q12H IV Sterile Water (WATER FOR INJECTION) 1 ML ASDIR PRN IV Tamsulosin HCl (Flomax 0.4 mg) 0.8 MG PC BK PO Hydrocortisone Sodium Succinate (Solu-CORTEF) 25 MG Q8H IV (DC) Dopamine HCl/Dextrose (DOPamine 400MG/D5W 250ML) 250 ML ASDIR IV Magnesium Citrate (MAGNESIUM CITRATE) 150 ML ONCE ONE PO (DC) Clopidogrel Bisulfate (Plavix) 75 MG DAILY PO Mupirocin (BACTROBAN 2% 22 GM OINTMENT) 1 APPLIC BID NASAL Mupirocin (BACTROBAN 2% 22 GM OINTMENT) 1 APPLIC BID NASAL (CAN) Polyethylene Glycol (MIRALAX) 17 GM DAILY PO Amiodarone HCl (AMIODARONE HCL) 450 MG ASDIR IV (CKD) Dextrose/Water (D5%W NON-DEHP) 250 MLPantoprazole (PROTONIX) 40 MG DAILY@0600 PO Sodium Chloride (0.45% Sodium Chloride) 500 ML BOLUS ONCE ONE IV (DC) Vancomycin HCl (VANCOMYCIN HCL) 1,000 MG ONCE ONE IV (DC) Sodium Chloride (SODIUM CHLORIDE 0.9%) 250 MLOxycodone HCl (ROXICODONE) 5 MG Q4H PRN PRN PO (DC) Aspirin (ASPIRIN) 81 MG DAILY PO Calcium Chloride (CALCIUM CHLORIDE) 2 GM ONCE ONE IV (DC) Sodium Chloride (SODIUM CHLORIDE 0.9%) 100 MLAlbumin Human (ALBUMINAR 5% 12.5GM/250ML) 250 ML Q30M IV (DC) Hydrocortisone Sodium Succinate (Solu-CORTEF) 25 MG Q8HR IV (CAN) Amiodarone HCl (CORDARONE) 200 MG TID PO Docusate Sodium (COLACE) 100 MG BID PO Gabapentin (NEURONTIN) 200 MG BID PO (DC) Metoprolol Tartrate (LOPRESSOR) 12.5 MG Q12HR PO Sennosides (Senna Lax 8.6 MG TABLET) 17.2 MG BEDTIME PO Sugammadex Sodium (BRIDION) 0 .STK-MED ONE IV (DC) Ipratropium [place] (ATROVENT) 500 MCG RTQ4H INH Sugammadex Sodium (BRIDION) 0 .STK-MED ONE IV (DC) Sodium Bicarbonate (SODIUM BICARBONATE) 0 .STK-MED ONE IV (DC) Naloxone HCl (NARCAN) 0.4 MG ONCE ONE IV (DC) Naloxone HCl (NARCAN) 0 .STK-MED ONE IV (DC) Acetaminophen (TYLENOL) 650 MG Q4H PRN PRN PO Acetaminophen (TYLENOL) 650 MG Q4H PRN PRN RECTAL Albumin Human (ALBUMINAR 25%) 25 GM ASDIR PRN IV (DC) Calcium Chloride (CALCIUM CHLORIDE) 1 GM ASDIR PRN IV Dextrose/Water (DEXTROSE 10% IN WATER) 125 ML ASDIR PRN IV (CKD) Dextrose/Water (DEXTROSE 10% IN WATER) 250 ML ASDIR PRN IV (CKD) Epinephrine (ADRENALIN CHLORIDE) 4 MG ASDIR IV Dextrose/Water (DEXTROSE 5% WATER) 246 MLGlucagon (GLUCAGON) 1 MG ASDIR PRN IM Insulin Human Regular (HumuLIN R) 100 UNIT ASDIR IV (CKD) Sodium Chloride (SODIUM CHLORIDE 0.9%) 99 MLMagnesium Sulfate (MAGNESIUM SULFATE 4GM/SWFI 100ML) 100 ML ASDIR PRN IV Magnesium Sulfate (MAGNESIUM SULFATE 2GM/SWFI 50ML) 50 ML ASDIR PRN IV Magnesium Sulfate/Dextrose (MAGNESIUM SULFATE 1GM/D5W 100ML) 100 ML ASDIR PRN IV Nitroglycerin/Dextrose (NITROGLYCERIN 50,000MCG/D5W 250ML) 250 ML ASDIR IV Norepinephrine Bitartrate (NOREPINEPHRINE 8 MG/NS 250 ML) 250 ML TITRATE IV Ondansetron HCl (ZOFRAN) 4 MG Q6H PRN PRN IV Potassium Chloride (KCL 20MEQ/SWFI 100ML) 100 ML ASDIR PRN IV Sodium Bicarbonate (SODIUM BICARBONATE) 50 MEQ ASDIR PRN IV Sodium Chloride (SODIUM CHLORIDE 0.9%) 1,000 ML .Q20H IV Sodium Chloride (SODIUM CHLORIDE 0.9%) 250 ML Q24H IV Vancomycin HCl (VANCOMYCIN HCL) 1,000 MG Q12H IV (CAN) Sodium Chloride (SODIUM CHLORIDE 0.9%) 250 MLClindamycin Phosphate (CLEOCIN 900 MG/NS 50 ML) 50 ML PREOP ONCALL IV (DC) Vancomycin HCl (Vancomycin 1,250 mg Inj (B2)) 1,250 MG PREOP ONCALL IV (DC) Sodium Chloride (SODIUM CHLORIDE 0.9%) 250 MLVerapamil HCl (ISOPTIN) 16.6 MG .Q24H ONE IV (DC) Heparin Sodium (Porcine) (HEPARIN SODIUM) 1,660 UNIT Sodium Bicarbonate (SODIUM BICARBONATE) 0.7 ML Nitroglycerin/Dextrose (NITROGLYCERIN 50MG/D5W 250ML) 8.3 MG Lactated Ringer's (LACTATED RINGERS) 949.5 MLBudesonide (PULMICORT RESPULES) 0.5 MG RTBID INH (DC) Formoterol Fumarate (PERFOROMIST) 20 MCG RTBID NEB (DC) Doxycycline Hyclate (VIBRAMYCIN) 100 MG Q12HR IV (DC) Sodium Chloride (SODIUM CHLORIDE 0.9% 100 ML) 100 MLGuaifenesin (MUCINEX 600MG TAB SA) 600 MG Q12HR PO (DC) Mupirocin (BACTROBAN 2% 22 GM OINTMENT) 1 APPLIC BID NASAL (DC) Methylprednisolone Sodium Succinate (Solu-Medrol 40 MG Vial) 40 MG Q8H IV (DC) Sterile Water (WATER FOR INJECTION) 1 ML ASDIR PRN IV (DC) Heparin Sodium (HEPARIN 5000 UNITS/ML) 0 ASDIR PRN IV (DC) Heparin Sodium (Porcine) (HEPARIN 25,000 UNITS/ 1/2NS 500ML) 500 ML ASDIR IV (DC) Nitroglycerin/Dextrose (NITROGLYCERIN 50,000MCG/D5W 250ML) 250 ML ASDIR IV (DC) Physical ExamHead/eyes: EOMI, PERRLCardiovascular: normal capillary refill, normal heart sounds, regular rate and rhythm, normal S1/V1Ymgxlwvokte: aerating well, clear to auscultation, symmetric expansionAbdomen: soft, non-tenderGenitourinary: urinary catheter, no bladder distentionExtremities: no clubbing, no cyanosis, no edemaSkin: abnormal temperature, dry, no rashPsychiatry: unable to evaluate ResultsFindings/data:Laboratory Tests 03/05 03/05 03/05 03/05 1543 1436 1047 0743 Blood Gas Puncture Site Art Line Art Line Art Line Art Line O2 Saturation (90 - 100 %) 97.4 99.5 97.6 95.1 ABG pH (7.35 - 7.45) 7.275 *L 7.317 L 7.327 L 7.343 L ABG pCO2 (35.0 - 45 mmHg) 62.7 *H 55.6 *H 63.4 *H 58.9 *H ABG pO2 (80 - 100.0 mmHg) 110.1 H 185.9 H 108.3 H 82.1 ABG PO2/FiO2 Ratio (mm/Hg) 464.75 361.00 273.66 ABG HCO3 (22.0 - 26.0 MMOL/L) 29.1 *H 28.4 *H 33.2 *H 32.0 *H ABG Total CO2 31.0 30.1 35.2 33.8 ABG Base Excess (-4.0 - 4.0 MMOL/L) 2.3 2.3 7.2 H 6.3 H ABG Hematocrit (37.5 - 50.7 %) 25 L 23 L 24 L 23 L ABG Hemoglobin (12.5 - 16.9 G/DL) 8.4 L 7.9 L 8.0 L 7.8 L Shayla Test N/A N/A N/A Sodium (134 - 147 mmol/L) 145 145 148 H 147 Potassium (3.4 - 5.0 mmol/L) 4.4 4.4 4.4 4.6 Chloride (100 - 108 mmol/L) 110 H 112 H 108 108 Ionized Calcium (1.12 - 1.32 MMOL/L) 1.21 1.17 1.25 1.19 Lactic Acid (0.9 - 1.7 mmol/l) 0.5 L 0.8 L 0.5 L 0.9 Temperature (F) 98.8 98.6 98.3 O2 Delivery Device BiPAP BiPAP BiPAP Bagging Vent Mode CPAP/PS Vent Rate (/MIN) 20 24 FiO2 (%) 40 30 30 Tidal Volume (ml) 450 PEEP (cmH2O) 8 7 Pressure Support (cmH2O) 25 15 03/05 03/05 03/05 03/05 0635 0532 0442 0209 Blood Gas Puncture Site Art Line Art Line Art Line Art Line O2 Saturation (90 - 100 %) 97.4 96.9 96.2 96.5 ABG pH (7.35 - 7.45) 7.322 L 7.259 *L 7.218 *L 7.312 L ABG pCO2 (35.0 - 45 mmHg) 58.5 *H 66.1 *H 77.2 *H 65.1 *H ABG pO2 (80 - 100.0 mmHg) 105.9 H 106.5 H 103.7 H 97.2 ABG PO2/FiO2 Ratio (mm/Hg) 302.57 266.25 ABG HCO3 (22.0 - 26.0 MMOL/L) 30.3 *H 29.6 *H 31.5 *H 33.0 *H ABG Total CO2 32.1 31.7 33.8 35.0 ABG Base Excess (-4.0 - 4.0 MMOL/L) 4.2 H 2.5 3.7 6.7 H ABG Hematocrit (37.5 - 50.7 %) 21 L 22 L 24 L 21 L ABG Hemoglobin (12.5 - 16.9 G/DL) 7.1 L 7.4 L 8.0 L 7.2 L Sodium (134 - 147 mmol/L) 147 145 149 H 147 Potassium (3.4 - 5.0 mmol/L) 4.6 4.7 4.7 4.4 Chloride (100 - 108 mmol/L) 108 109 H 108 108 Ionized Calcium (1.12 - 1.32 MMOL/L) 1.22 1.23 1.30 1.33 H Lactic Acid (0.9 - 1.7 mmol/l) 1.0 1.7 2.0 H 1.8 H O2 Delivery Device BiPAP BiPAP 4L HFNC Vent Mode 08/12 08/12 4L HFNC FiO2 (%) 35 40 03/04lood Gas Puncture Site Art Line Art Line Art Line Art Line O2 Saturation (90 - 100 %) 93.3 95.7 99.9 97.9 ABG pH (7.35 - 7.45) 7.328 L 7.337 L 7.342 L 7.204 *L ABG pCO2 (35.0 - 45 mmHg) 53.9 *H 49.8 H 50.2 *H 50.2 *H ABG pO2 (80 - 100.0 mmHg) 72.6 L 80.9 382.6 *H 125.4 H ABG PO2/FiO2 Ratio (mm/Hg) 202.25 382.60 313.50 ABG HCO3 (22.0 - 26.0 MMOL/L) 28.5 *H 27.1 H 27.2 H 19.8 L ABG Total CO2 30.2 28.7 28.7 21.3 ABG Base Excess (-4.0 - 4.0 2.4 1.0 1.5 -8.2 LMMOL/L) ABG Hematocrit (37.5 - 50.7 %) 22 L 23 L 23 L 23 L ABG Hemoglobin (12.5 - 16.9 G/DL) 7.4 L 7.9 L 7.7 L 7.8 L Sodium (134 - 147 mmol/L) 148 H 148 H 146 140 Potassium (3.4 - 5.0 mmol/L) 3.9 4.0 3.7 3.5 Chloride (100 - 108 mmol/L) 108 108 105 108 Ionized Calcium (1.12 - 1.32 1.10 L 1.10 L 1.21MMOL/L) Lactic Acid (0.9 - 1.7 mmol/l) 4.3 *H 6.5 *H 5.0 *H 3.9 H Temperature (F) 97.7 96.1 O2 Delivery Device 4L HFNC Adult Vent Adult Vent Vent Mode SPONT AC Vent Rate (/MIN) 18 FiO2 (%) 40 100 40 Tidal Volume (ml) 480 PEEP (cmH2O) 5 5 Pressure Support (cmH2O) 20 03/04 03/04 1758 1733 Blood Gas Puncture Site Art Line O2 Saturation (90 - 100 %) 99.4 100.0 ABG pH (7.35 - 7.45) 7.280 *L 7.323 L ABG pCO2 (35.0 - 45 mmHg) 43.0 41.3 ABG pO2 (80 - 100.0 mmHg) 175.5 H 402.1 *H ABG PO2/FiO2 Ratio (mm/Hg) 351.00 ABG HCO3 (22.0 - 26.0 MMOL/L) 20.2 L 21.4 L ABG Total CO2 21.5 22.7 ABG Base Excess (-4.0 - 4.0 MMOL/L) -6.5 L -4.4 L ABG Hematocrit (37.5 - 50.7 %) 20 L 25 L ABG Hemoglobin (12.5 - 16.9 G/DL) 6.9 L 8.3 L Shayla Test N/A Sodium (134 - 147 mmol/L) 141 143 Potassium (3.4 - 5.0 mmol/L) 3.3 L 3.3 L Chloride (100 - 108 mmol/L) 107 109 H Ionized Calcium (1.12 - 1.32 MMOL/L) 1.21 1.22 Lactic Acid (0.9 - 1.7 mmol/l) 3.2 H O2 Delivery Device Adult Vent Vent Mode AC Vent Rate (/MIN) 18 FiO2 (%) 50 Tidal Volume (ml) 480 PEEP (cmH2O) 5 Laboratory Tests 03/05 03/05 03/05 03/05 03/05 1610 1556 1543 1436 1047 Chemistry Sodium (134 - 147 mEq/L) 148 H Potassium (3.4 - 5.0 mEq/L) 4.5 Chloride (100 - 108 mEq/L) 109 H Carbon Dioxide (21 - 33 mEq/l) 27 Anion Gap (0 - 20) 16 BUN (7 - 18 mg/dL) 41 H Creatinine (0.6 - 1.3 mg/dL) 2.7 H POC Creatinine (0.8 - 1.3 mg/dL) 2.7 H 2.4 H 2.4 H Glomerular Filtr Rate (70 - 80) 24.4 L Glucose (70 - 110 mg/dL) 217 H POC Glucose (70 - 110 MG/DL) 210 H POC Glucose (mg/dL) (70 - 110 MG/DL) 196 H 223 H 88 Calcium (8.0 - 10.5 mg/dL) 9.0 Magnesium (1.80 - 2.40 mg/dL) 2.58 H 03/05 03/05 03/05 03/05 03/05 1006 0748 0743 0635 0532Chemistry Sodium (134 - 147 mEq/L) 148 H Potassium (3.4 - 5.0 mEq/L) 4.6 Chloride (100 - 108 mEq/L) 111 H Carbon Dioxide (21 - 33 mEq/l) 32 Anion Gap (0 - 20) 10 BUN (7 - 18 mg/dL) 37 H Creatinine (0.6 - 1.3 mg/dL) 2.3 H POC Creatinine (0.8 - 1.3 mg/dL) 2.4 H 1.8 H 1.9 H Glomerular Filtr Rate (70 - 80) 29.6 L Glucose (70 - 110 mg/dL) 134 H POC Glucose (70 - 110 MG/DL) 110 POC Glucose (mg/dL) (70 - 110 MG/DL) 113 H 126 H 146 H Calcium (8.0 - 10.5 mg/dL) 8.7 Ionized Calcium [place] (1.09 - 1.30 MMOL/L) 1.14 Magnesium (1.80 - 2.40 mg/dL) 2.35 03/05 03/05 03/05 03/05 03/04 0442 0209 0201 0201 2348Chemistry Sodium (134 - 147 mEq/L) 150 H Potassium (3.4 - 5.0 mEq/L) 4.4 Chloride (100 - 108 mEq/L) 113 H Carbon Dioxide (21 - 33 mEq/l) 30 Anion Gap (0 - 20) 12 BUN (7 - 18 mg/dL) 30 H Creatinine (0.6 - 1.3 mg/dL) 1.9 H POC Creatinine (0.8 - 1.3 mg/dL) 2.1 H 2.1 H Glomerular Filtr Rate (70 - 80) 37.3 L Glucose (70 - 110 mg/dL) 132 H POC Glucose (mg/dL) (70 - 110 MG/DL) 126 H 121 H Lactic Acid (0.4 - 1.9 mmol/L) 2.4 H 4.2 *H Calcium (8.0 - 10.5 mg/dL) 9.3 Magnesium (1.80 - 2.40 mg/dL) 2.66 H Total Bilirubin (0.0 - 1.0 mg/dL) 0.40 Direct Bilirubin (0.0 - 0.30 MG/DL) 0.20 Indirect Bilirubin (MG/DL) 0.20 AST (15 - 37 IUnit/L) 40 H ALT (30 - 65 IUnit/L) 13 L Total Alk Phosphatase (20 - 125 IUnit/L) 26 Total Protein (6.4 - 8.2 g/dL) 5.1 L Albumin (3.4 - 5.0 g/dL) 3.40 03/04 03/04 03/04 03/04 03/04 2259 2132 2132 2055 1942Chemistry Sodium (134 - 147 mEq/L) 151 H Potassium (3.4 - 5.0 mEq/L) 4.1 Chloride (100 - 108 mEq/L) 110 H Carbon Dioxide (21 - 33 mEq/l) 27 Anion Gap (0 - 20) 18 BUN (7 - 18 mg/dL) 29 H Creatinine (0.6 - 1.3 mg/dL) 1.8 H POC Creatinine (0.8 - 1.3 mg/dL) 1.6 H 1.8 H 0.9 Glomerular Filtr Rate (70 - 80) 39.7 L Glucose (70 - 110 mg/dL) 212 H POC Glucose (mg/dL) (70 - 110 MG/DL) 178 H 214 H 219 H Lactic Acid (0.4 - 1.9 mmol/L) 8.6 *H Calcium (8.0 - 10.5 mg/dL) 7.6 L Ionized Calcium [place] (1.09 - 1.30 MMOL/L) 0.95 L Total Bilirubin (0.0 - 1.0 mg/dL) 0.70 Direct Bilirubin (0.0 - 0.30 MG/DL) 0.40 H Indirect Bilirubin (MG/DL) 0.30 AST (15 - 37 IUnit/L) 40 H ALT (30 - 65 IUnit/L) 11 L Total Alk Phosphatase (20 - 125 IUnit/L) 28 Total Protein (6.4 - 8.2 g/dL) 4.8 L Albumin (3.4 - 5.0 g/dL) 2.80 L 03/04 03/04 03/04 03/04 1907 1758 1743 1733 Chemistry Sodium (134 - 147 mEq/L) 143 Potassium (3.4 - 5.0 mEq/L) 3.3 L Chloride (100 - 108 mEq/L) 110 H Carbon Dioxide (21 - 33 mEq/l) 22 Anion Gap (0 - 20) 14 BUN (7 - 18 mg/dL) 37 H Creatinine (0.6 - 1.3 mg/dL) 1.7 H POC Creatinine (0.8 - 1.3 mg/dL) 1.2 1.5 H 1.4 H Glomerular Filtr Rate (70 - 80) 42.6 L Glucose (70 - 110 mg/dL) 225 H POC Glucose (mg/dL) (70 - 110 MG/DL) 223 H 230 H 196 H Calcium (8.0 - 10.5 mg/dL) 8.3 Magnesium (1.80 - 2.40 mg/dL) 2.98 H Laboratory Tests 03/04 03/04 1743 1731 Coagulation INR (0.8 - 1.2) 1.5 H PTT ([place]) (25.0 - 39.5 Seconds) 30.8 PT Patient/Control Mix (9.3 - 12.9 SECONDS) 16.4 H Activated Coag Time (74 - 137 SEC) 149 H Laboratory Tests 03/05 03/05 03/04 03/04 1052 0201 2132 1743Hematology WBC (4.5 - 11.0 x10 3/uL) 7.2 3.9 L 5.2 9.1 RBC (4.00 - 5.60 x10 6/uL) 2.71 L 2.51 L 2.80 L 2.46 L Hgb (12.5 - 16.9 g/dL) 8.3 L 7.7 L 8.6 L 7.5 L Hct (37.5 - 50.7 %) 25.2 L 22.9 L 25.4 L 23.3 L MCV (81.0 - 99.0 fL) 93.0 91.2 90.7 94.7 MCH (27.0 - 33.0 pg) 30.6 30.7 30.7 30.5 MCHC (33.0 - 37.0 g/dL) 32.9 L 33.6 33.9 32.2 L RDW (11.5 - 14.5 %) 17.1 H 16.2 H 15.6 H 14.4 Plt Count (150 - 400 x10 3/uL) 123 L 88 L 92 L 109 L MPV (7.0 - 9.0 fL) 11.0 H 11.0 H 10.8 H 10.8 H Neut % (Auto) (56.0 - 77.0 %) 85.7 H 86.9 H 86.5 H 84.1 H Lymph % (Auto) (14.0 - 32.0 %) 3.6 L 3.1 L 3.3 L 6.5 L [place] % (Auto) (4.8 - 9.0 %) 10.3 H 9.5 H 8.7 8.1 Eos % (Auto) (0.3 - 3.7 %) 0.0 L 0.0 L 0.0 L 0.2 L Baso % (Auto) (0.0 - 2.0 %) 0.0 0.0 0.2 0.1 Neut # (Auto) (2.0 - 7.6 x10 3/uL) 6.16 3.39 4.49 7.61 H Lymph # (Auto) (1.0 - 3.8 x10 3/uL) 0.26 L 0.12 L 0.17 L 0.59 L [place] # (Auto) (0.1 - 0.8 x10 3/uL) 0.74 0.37 0.45 0.73 Eos # (Auto) (0.0 - 0.2 x10 3/uL) 0.00 0.00 0.00 0.02 Baso # (Auto) (0.0 - 0.2 x10 3/uL) 0.00 0.00 0.01 0.01 Abs Immat Gran (auto) (0.00 - 0.03 x10 3/uL) 0.03 0.02 0.07 H 0.09 H Add Manual Diff NO NO NO NO Immature Gran % (0.0 - 2.0 %) 0.4 0.5 1.3 1.0 Nucleated RBC % (0 - 0 %) 0.0 0.0 0.0 0.0 Nucleated RBCs # (Man) (0.0 - 0.1 x10 3/uL) 0.00 0.00 0.00 0.00 Platelet Estimate (ADEQUATE THOUSAND) 140-175 Plt Morphology Comment NORMAL Laboratory Tests 03/05/23 1610:[Embedded Image Not Available] 03/05/23 1052:[Embedded Image Not Available] 03/05/23 0748:[Embedded Image Not Available] 03/05/23 0201:[Embedded Image Not Available] 03/04/23 2132:[Embedded Image Not Available] 03/04/23 1743:[Embedded Image Not Available]Microbiology:03/03 1952 NASAL: MSSA Surveillance Screen - COMP03/03 1952 NASAL: MRSA DNA Surveillance Screen - COMP Radiology dataRecent Impressions:RADIOLOGY - XR CHEST 1 V 03/04 182 Report Impression - Status: SIGNED Entered: 03/04/20231936 IMPRESSION: 1. Lines and tubes are in satisfactory position. 2. St. Mild bibasilar atelectasis. ernal wires are seen Impression By: Jose Juan Schuler M.D.CAT SCAN - CT HEAD/BRAIN W/O CONT 03/04 1933 Report Impression - Status: SIGNED Entered: 03/04/20231939 IMPRESSION: 1. No acute intracranial abnormality. 2. Chronic ischemic changes are present as described. 3. There is mild acute and chronic paranasal sinus disease. ASSESSMENT: ASPECTS ([place] Stroke Program Early CT Score) is 10. Impression By: Jose Juan Schuler M.D.RADIOLOGY - XR CHEST 1 V 03/05 0501 Report Impression - Status: SIGNED Entered: 03/05/2023 0827 IMPRESSION: 1. Unchanged mild bibasilar airspace disease. 2. Lines and tubes, as above. Impression By: Erasmo Pimentel Jony, M.D.RADIOLOGY - XR ABDOMEN 1V (KUB) 03/05 0838 Report Impression - Status: SIGNED Entered: 03/05/2023 0852 IMPRESSION: No pathologic bowel distention.Impression By: [email or web address] - Davi Walton M.D. Diagnosis, Assessment PlanFree text A P: Problem List: Chest painWheezingDyspneaMultivessel coronary artery diseaseNon-ST elevation MIStatus post CABG x5 and ILAAElective ventilator dependenceAcute pulmonary insufficiency following major cardiothoracic surgeryAcute blood loss anemiaMetabolic acidosisLactic acidosisHypokalemiaHyperglycemiaChronic steroid dependenceSevere left carotid stenosisHistory of severe COPD Assessment and Plan: Tevin Nye is a 72-year-old gentleman with past medical history significant for hypertension, diabetes, dyslipidemia, former smoker quit in 2008, BPH, prostate cancer status postradiation severe COPD, not home oxygen dependent, severe left carotid stenosis, who was admitted to the medical floor with diagnosis of NSTEMI. He was found to have severe multivessel coronary disease on cardiac catheterization. Patient also had shortness of breath and wheezing. He was seen by pulmonology and started on steroid therapy along with nebulizer treatments. Patient underwent elective coronary artery bypass grafting surgery and received 4 jumps along with isolation of left atrial appendage. He came outof the OR with norepinephrine at 4 mcg and epinephrine at 2 mcg. EF was normal. Patient received parasternal block. Intraoperatively he received 1.5 L of crystalloids, 250 mL of Cell Saver, hemoglobin was 8.3 g/dL but on arrival his latest hemoglobin is 6.9 g/dL. Patient has been ordered 2 units of packed red cells. Intra-Op urine output was 425 mL and EBL was 100 mL. Patient received fentanyl and last neuromuscular blockade dose was at 3:15 PM. Patient was givenhydrocortisone 100 mg IV at 2:45 PM for chronic steroid dependence. He is currently on assist-control at 18 tidal volume 480 PEEP of 5 and 50% FiO2 and ismoving tidal volumes at 470+. Vital signs are stable with heart rate 82 sinus rhythm, blood pressure 95/41 mmHg, pulse ox 100% while on 50% FiO2 and respiratory rate is 14. Chest tube output is minimal at 3 mm each. Patient wasordered albumin 25% to 50 mL. Pupils are bilaterally symmetrical and reactive to light measuring 3 mm on each side. Lab work upon arrival in the CVICU room #[id number] revealed a potassium of 3.3, glucose 230, creatinine 1.46 mg/dL, hemoglobinof 6.9 g/dL and hematocrit of 20%. Tevin Gonzalez is a 72 y.o. male with PMH of hypertension, dyslipidemia, diabetes, former smoker (quit 2008), BPH, prostate CA s/p radiation, COPD (uses inhaler at home, no home oxygen), and PE (November 2022 on eliquis) who presented to [facility] with chest pain, dyspnea on exertion, and NSTEMI. Coronary angiogram was done and revealed severe multivessel coronary artery disease. Patient was then transferred to [facility] for CV surgery evaluation and need for CABG. on the floor he had chest pain at rest and was transferred to the ICU for nitroglycerin drip and preoperative workup. Also noted to have chest pain - which he states is better and related to when he coughs. Currently without any pain. Patient underwent elective CABG x5 and isolation of left atrial appendage on 03/04/2023. Patient is postop day 0 after CABG x5 and ILAAHas severe left carotid stenosisOptimize systolic blood pressure to greater than 130 mmHgPatient was on chronic steroid therapy with Solu-MedrolAdrenal cortical support with hydrocortisone 25 mg IV every 8 hoursHas acute blood loss anemia with a hemoglobin of 6.9 g/dLTransfuse 2 units of packed red cellsPatient received Hydrocortisone 100 mg IV at 2:45 PM Start on Hydrocortisone 25 mg every 8 hoursAlso received parasternal blockCurrently on assist-control at 18 tidal volume 480 PEEP of 5 and 50% [id number] blood gas shows a pH of 7.28, pCO2 of 43 mmHg, pO2 of 175 mmHg and bicarbonate of 20 mmol with base excess at -6.5Patient has been ordered 1 amp of sodium bicarbonateRecheck ABGs in 1 hourChest tube output is minimal at 3 mL in both left pleural and mediastinal chest tubeBlood pressure is low upon arrival at 95/41 mm of HgOptimize blood pressure with Norepinephrine, titrate to a map of 70 or greaterAvoid sedationMonitor chest tube outputPupils are bilaterally symmetrical and reactive to light measuring 3 mm on each sideReplete potassium, check magnesium and ionized calciumFollow BMPGlycemic control with insulin drip, latest blood glucose is 230 mg/dL SCDs for DVT prophylaxis Noé Madrid MD [facility].32 PM 03/05/2023Neurologically patient is at baseline. Avoid all opioids. Continue with Tylenol IV.Patient is requiring BiPAP. Once taken on the BiPAP became hypercapnic. Continue with the AVAPS 450. ABG slowly improving. Pulmonary following. On IVsteroids. On nebs.Patient has underlying emphysema.Chest x-ray and ABG reviewed.Patient blood pressures on the softer side. Continue keep higher perfusion pressure.Is on dopamine 3 mics. To help with the renal output. Creatinine has worsened to 2.7. Still making urine. Renal following.Minimize fluid intake.Insulin drip. Continue monitoring blood sugars.Continue aspirin and Plavix.Continue to monitor chest tube output.White count is stable. Hemoglobin stable.LFTs normal.SCDs for DVT prophylaxis.On PPI Total critical care time 60 minutes excluding proceduresConsultants: anesthesiology, cardiology, cardiovascular surgery, critical/osteopathy doctor, hospitalist at 1723 RPT #:[id number] OF REPORTPRProgress [id number]:57:00G.[id number] able for patient [id number]:23:35 [facility] 2023-03-05 15:46:00 [id number]++jTufLsFTa1 +JztLLtAYuXgkX/[id number]:46:00 [facility]Ne[facility] Consultation NoteREPORT#:[id number] REPORT STATUS: SignedDATE:03/05/23 TIME: 1546 PATIENT: TEVIN NYE UNIT #: [id number]#: [id number] [address] AGE: 72 SEX: M ATTEND: EdisonRossy aceveslibby Crews [facility] AUTHOR: Glendy Paz MD * ALL edits or amendments must be made on the electronic/computer document * History of Present IllnessReason for consult:AKIHPI:Patient is a 72 y.o. male with PMH of hypertension, dyslipidemia, diabetes, BPH,prostate CA s/p radiation, COPD, and history of PE on eliquis who was originally presented to [facility] with chest pain, dyspnea on exertion, and NSTEMI. Coronary angiogram showed severe multivessel coronary artery disease. Patient was then transferred to [facility] for CV surgery evaluation. Patient had CT with IV contrast as preop on March 03, 2023 and then underwent elective CABG x5 and isolation of left atrial appendage on 03/04/2023. Currently in ICU, on BiPAP and n.p.o. He has worsening creatinine. Last night had 2 bouts of V. tach. Was on low-dose Levophed and now switched todopamine. Urine output 25 to 30 cc/h. Nephrology was called. History - Adult longitudinalPast medical history:Reports: COPD, Diabetes mellitus, Hypertension, BPH, Dyslipidemia. Past surgical history:Reports: Knee procedure, Lung surgery (collapsed lung). Additional family history:UTOAlcohol use: Denies EtOH useDrug use: Denies recreational drugsSmoking status for patients 13 years old or older: Former SmokerPacks per day: 1Years smoked: 20Pack years: 20Allergies:Coded Allergies:Penicillins (USE COMMENT BUTTON 03/03/23) PT STATES THAT HE WAS JUST TOLD THAT HE'S ALLERGIC TO PENICILLIN AND ITS NOT GONNA WORK FOR HIM Review of SystemsConstitutional:Denies: chills, fatigue, fever, generalized weakness, lethargy, malaise, recent wt loss, other. Additional notes:Complains of pain at surgery site Objective GeneralVS/I O:Vital Signs: Date Time Temp Pulse Resp B/P B/P Pulse O2 O2 Flow FiO2 Mean Ox Delivery Rate 03/05 1208 90 99 40 03/05 0830 74 100 40 03/05 0830 100 BiPAP 40 03/05 0800 BiPAP 40 03/05 0708 98.2 82 17 119/57 77 97 / 0630 98.1 79 14 131/58 84 100 / 0600 98.2 78 13 105/55 75 99 / 0530 98.2 83 17 107/53 76 98 06/ 0520 80 100 40 / 0520 100 BiPAP 40 03/05 0500 97.9 86 18 120/56 80 94 06/ 0433 96.1 92 22 117/53 77 98 / 0400 97.7 88 15 123/54 78 98 06/ 0330 97.9 80 14 82/45 61 95 / 0300 98.1 82 12 111/59 79 98 / 0300 98 High flow 3 nasal cannula 03/05 0230 98.1 85 17 109/55 79 98 / 0200 98.1 86 15 116/56 81 99 / 0130 98.1 92 23 126/56 84 95 / 0100 97.7 88 18 141/65 93 98 / 0044 100 High flow 3 nasal cannula 03/05 0030 97.5 87 15 128/60 87 100 / 0015 97.5 84 15 115/58 78 100 / 0000 97.5 84 14 114/55 77 100 06/ 2330 97.3 89 23 106/57 77 98 / 2300 97.7 87 21 111/48 70 98 / 2230 97.3 85 15 108/51 74 98 / 2200 Nasal 4 cannula 03/04 2200 113/50 71 / 2200 97.2 85 14 71 97 / 2138 98 High flow 4 nasal cannula 03/04 2130 96.6 90 20 119/58 82 100 / 2100 96.1 84 15 115/56 78 98 / 2045 95.9 85 21 128/54 76 97 /27 2 86 13 98 06/27 2030 95.9 83 18 120/57 82 100 /5 86 98 40 / 2000 Ventilator 40 /1999 95.5 88 18 161/74 106 99 06/27 1955 87 100 100 06/27 1945 95.5 95 21 187/72 118 100 06/27 1940 100 Ventilator 100 06/ 1930 95.7 86 18 158/58 98 100 06/ 1900 96.1 93 18 114/56 81 100 03/04 1815 Ventilator 40 03/04 1801 40 03/04 1801 100 Ventilator 40 03/04 1750 100 Ventilator 50 03/04 1750 82 100 50 03/04 1750 82 18 89/37 100 24 hour I O ending at 0700: 03/05 0700 03/04 1900 Intake Total 3628.00 Output Total 1045 50 Balance 2583.00 -50 Intake, IV 3038.00 Intake, Oral 240 Intake, 350 Packed Cells Output, Chest 720 Tube Drainage Output, Urine 325 50 Patient 88.3 kg Weight Weight Bed scale Measurement Method PATIENT WEIGHT: Weight (lb): 194Weight (oz): 10.69Weight (kg): 88.300 Medications:Active Meds + DC'd Last 24 HrsIpratropium [place] (ATROVENT) 500 MCG RTQ2H PRN PRN INH Cyanocobalamin (Vitamin B-12 500 mcg tab) 500 MCG DAILY PO Ferrous Sulfate (FERROUS SULFATE) 325 MG DAILY PO Bisacodyl (DULCOLAX) 10 MG ONCE PRN RECTAL Magnesium Hydroxide (MILK OF MAGNESIA) 30 ML ONCE PRN PO Atorvastatin Calcium (LIPITOR) 40 MG 2100 PO Acetaminophen (OFIRMEV 10MG/ML) 100 ML ONCE ONE IV (DC) Budesonide (PULMICORT RESPULES) 0.5 MG RTBID INH Formoterol Fumarate (PERFOROMIST) 20 MCG RTBID NEB Methylprednisolone Sodium Succinate (Solu-Medrol 40 MG Vial) 40 MG Q12H IV Sterile Water (WATER FOR INJECTION) 1 ML ASDIR PRN IV Tamsulosin HCl (Flomax 0.4 mg) 0.8 MG PC BK PO Hydrocortisone Sodium Succinate (Solu-CORTEF) 25 MG Q8H IV (DC) Dopamine HCl/Dextrose (DOPamine 400MG/D5W 250ML) 250 ML ASDIR IV Magnesium Citrate (MAGNESIUM CITRATE) 150 ML ONCE ONE PO (DC) Clopidogrel Bisulfate (Plavix) 75 MG DAILY PO Mupirocin (BACTROBAN 2% 22 GM OINTMENT) 1 APPLIC BID NASAL Mupirocin (BACTROBAN 2% 22 GM OINTMENT) 1 APPLIC BID NASAL (CAN) Polyethylene Glycol (MIRALAX) 17 GM DAILY PO Amiodarone HCl (AMIODARONE HCL) 450 MG ASDIR IV (CKD) Dextrose/Water (D5%W NON-DEHP) 250 MLPantoprazole (PROTONIX) 40 MG DAILY@0600 PO Sodium Chloride (0.45% Sodium Chloride) 500 ML BOLUS ONCE ONE IV (DC) Vancomycin HCl (VANCOMYCIN HCL) 1,000 MG ONCE ONE IV (DC) Sodium Chloride (SODIUM CHLORIDE 0.9%) 250 MLOxycodone HCl (ROXICODONE) 5 MG Q4H PRN PRN PO (DC) Aspirin (ASPIRIN) 81 MG DAILY PO Calcium Chloride (CALCIUM CHLORIDE) 2 GM ONCE ONE IV (DC) Sodium Chloride (SODIUM CHLORIDE 0.9%) 100 MLAlbumin Human (ALBUMINAR 5% 12.5GM/250ML) 250 ML Q30M IV (DC) Hydrocortisone Sodium Succinate (Solu-CORTEF) 25 MG Q8HR IV (CAN) Amiodarone HCl (CORDARONE) 200 MG TID PO Docusate Sodium (COLACE) 100 MG BID PO Gabapentin (NEURONTIN) 200 MG BID PO (DC) Metoprolol Tartrate (LOPRESSOR) 12.5 MG Q12HR PO Sennosides (Senna Lax 8.6 MG TABLET) 17.2 MG BEDTIME PO Sugammadex Sodium (BRIDION) 0 .STK-MED ONE IV (DC) Ipratropium [place] (ATROVENT) 500 MCG RTQ4H INH Sugammadex Sodium (BRIDION) 0 .STK-MED ONE IV (DC) Sodium Bicarbonate (SODIUM BICARBONATE) 0 .STK-MED ONE IV (DC) Naloxone HCl (NARCAN) 0.4 MG ONCE ONE IV (DC) Naloxone HCl (NARCAN) 0 .STK-MED ONE IV (DC) Perflutren Protein Type A Microsphe (OPTISON 3ML VIAL) 0 .STK-MED ONE IV (DC) Acetaminophen (TYLENOL) 650 MG Q4H PRN PRN PO Acetaminophen (TYLENOL) 650 MG Q4H PRN PRN RECTAL Albumin Human (ALBUMINAR 25%) 25 GM ASDIR PRN IV Calcium Chloride (CALCIUM CHLORIDE) 1 GM ASDIR PRN IV Dextrose/Water (DEXTROSE 10% IN WATER) 125 ML ASDIR PRN IV (CKD) Dextrose/Water (DEXTROSE 10% IN WATER) 250 ML ASDIR PRN IV (CKD) Epinephrine (ADRENALIN CHLORIDE) 4 MG ASDIR IV Dextrose/Water (DEXTROSE 5% WATER) 246 MLGlucagon (GLUCAGON) 1 MG ASDIR PRN IM Insulin Human Regular (HumuLIN R) 100 UNIT ASDIR IV (CKD) Sodium Chloride (SODIUM CHLORIDE 0.9%) 99 MLMagnesium Sulfate (MAGNESIUM SULFATE 4GM/SWFI 100ML) 100 ML ASDIR PRN IV Magnesium Sulfate (MAGNESIUM SULFATE 2GM/SWFI 50ML) 50 ML ASDIR PRN IV Magnesium Sulfate/Dextrose (MAGNESIUM SULFATE 1GM/D5W 100ML) 100 ML ASDIR PRN IV Nitroglycerin/Dextrose (NITROGLYCERIN 50,000MCG/D5W 250ML) 250 ML ASDIR IV Norepinephrine Bitartrate (NOREPINEPHRINE 8 MG/NS 250 ML) 250 ML TITRATE IV Ondansetron HCl (ZOFRAN) 4 MG Q6H PRN PRN IV Potassium Chloride (KCL 20MEQ/SWFI 100ML) 100 ML ASDIR PRN IV Sodium Bicarbonate (SODIUM BICARBONATE) 50 MEQ ASDIR PRN IV Sodium Chloride (SODIUM CHLORIDE 0.9%) 1,000 ML .Q20H IV Sodium Chloride (SODIUM CHLORIDE 0.9%) 250 ML Q24H IV Vancomycin HCl (VANCOMYCIN HCL) 1,000 MG Q12H IV (CAN) Sodium Chloride (SODIUM CHLORIDE 0.9%) 250 MLInsulin Human Lispro (HUMALOG) 0 AC HS SUBQ (DC) Clindamycin Phosphate (CLEOCIN 900 MG/NS 50 ML) 50 ML PREOP ONCALL IV (DC) Vancomycin HCl (Vancomycin 1,250 mg Inj (B2)) 1,250 MG PREOP ONCALL IV (DC) Sodium Chloride (SODIUM CHLORIDE 0.9%) 250 MLVerapamil HCl (ISOPTIN) 16.6 MG .Q24H ONE IV (DC) Heparin Sodium (Porcine) (HEPARIN SODIUM) 1,660 UNIT Sodium Bicarbonate (SODIUM BICARBONATE) 0.7 ML Nitroglycerin/Dextrose (NITROGLYCERIN 50MG/D5W 250ML) 8.3 MG Lactated Ringer's (LACTATED RINGERS) 949.5 MLBudesonide (PULMICORT RESPULES) 0.5 MG RTBID INH (DC) Formoterol Fumarate (PERFOROMIST) 20 MCG RTBID NEB (DC) Doxycycline Hyclate (VIBRAMYCIN) 100 MG Q12HR IV (DC) Sodium Chloride (SODIUM CHLORIDE 0.9% 100 ML) 100 MLGuaifenesin (MUCINEX 600MG TAB SA) 600 MG Q12HR PO (DC) Ipratropium [place] (ATROVENT) 500 MCG RTQ6H INH (DC) Mupirocin (BACTROBAN 2% 22 GM OINTMENT) 1 APPLIC BID NASAL (DC) Methylprednisolone Sodium Succinate (Solu-Medrol 40 MG Vial) 40 MG Q8H IV (DC) Sterile Water (WATER FOR INJECTION) 1 ML ASDIR PRN IV (DC) Heparin Sodium (HEPARIN 5000 UNITS/ML) 0 ASDIR PRN IV (DC) Heparin Sodium (Porcine) (HEPARIN 25,000 UNITS/ 1/2NS 500ML) 500 ML ASDIR IV (DC) Nitroglycerin/Dextrose (NITROGLYCERIN 50,000MCG/D5W 250ML) 250 ML ASDIR IV (DC) Physical ExamGeneral appearance: respiratory support, awake, no respiratory distressHead/eyes: atraumatic, normocephalic, PERRLANeck: no JVD, no lymphadenopathyCardiovascular: normal heart sounds, regular rate and rhythm, no rubRespiratory: decreased breath sounds, aerating well, no distressAbdomen: non-tender, normal bowel sounds, soft, no reboundGenitourinary: urinary catheter, urineExtremities: no edema, no gangreneNeuro/SALES ASSISTANT: alert, normal speech ResultsFindings/Data:Laboratory Tests 03/05 03/05 03/05 03/05 1436 1047 0743 0635 Blood Gas Puncture Site Art Line Art Line Art Line Art Line O2 Saturation (90 - 100 %) 99.5 97.6 95.1 97.4 ABG pH (7.35 - 7.45) 7.317 L 7.327 L 7.343 L 7.322 L ABG pCO2 (35.0 - 45 mmHg) 55.6 *H 63.4 *H 58.9 *H 58.5 *H ABG pO2 (80 - 100.0 mmHg) 185.9 H 108.3 H 82.1 105.9 H ABG PO2/FiO2 Ratio (mm/Hg) 464.75 361.00 273.66 302.57 ABG HCO3 (22.0 - 26.0 MMOL/L) 28.4 *H 33.2 *H 32.0 *H 30.3 *H ABG Total CO2 30.1 35.2 33.8 32.1 ABG Base Excess (-4.0 - 4.0 MMOL/L) 2.3 7.2 H 6.3 H 4.2 H ABG Hematocrit (37.5 - 50.7 %) 23 L 24 L 23 L 21 L ABG Hemoglobin (12.5 - 16.9 G/DL) 7.9 L 8.0 L 7.8 L 7.1 L Shayla Test N/A N/A N/A Sodium (134 - 147 mmol/L) 145 148 H 147 147 Potassium (3.4 - 5.0 mmol/L) 4.4 4.4 4.6 4.6 Chloride (100 - 108 mmol/L) 112 H 108 108 108 Ionized Calcium (1.12 - 1.32 MMOL/L) 1.17 1.25 1.19 1.22 Lactic Acid (0.9 - 1.7 mmol/l) 0.8 L 0.5 L 0.9 1.0 Temperature (F) 98.8 98.6 98.3 O2 Delivery Device BiPAP BiPAP Bagging BiPAP Vent Mode CPAP/PS 12/5 Vent Rate (/MIN) 20 24 FiO2 (%) 40 30 30 35 Tidal Volume (ml) 450 PEEP (cmH2O) 8 7 Pressure Support (cmH2O) 25 15 03/05 03/05 03/05 03/04 0532 0442 0209 2256 Blood Gas Puncture Site Art Line Art Line Art Line Art Line O2 Saturation (90 - 100 %) 96.9 96.2 96.5 93.3 ABG pH (7.35 - 7.45) 7.259 *L 7.218 *L 7.312 L 7.328 L ABG pCO2 (35.0 - 45 mmHg) 66.1 *H 77.2 *H 65.1 *H 53.9 *H ABG pO2 (80 - 100.0 mmHg) 106.5 H 103.7 H 97.2 72.6 L ABG PO2/FiO2 Ratio (mm/Hg) 266.25 ABG HCO3 (22.0 - 26.0 MMOL/L) 29.6 *H 31.5 *H 33.0 *H 28.5 *H ABG Total CO2 31.7 33.8 35.0 30.2 ABG Base Excess (-4.0 - 4.0 MMOL/L) 2.5 3.7 6.7 H 2.4 ABG Hematocrit (37.5 - 50.7 %) 22 L 24 L 21 L 22 L ABG Hemoglobin (12.5 - 16.9 G/DL) 7.4 L 8.0 L 7.2 L 7.4 L Sodium (134 - 147 mmol/L) 145 149 H 147 148 H Potassium (3.4 - 5.0 mmol/L) 4.7 4.7 4.4 3.9 Chloride (100 - 108 mmol/L) 109 H 108 108 108 Ionized Calcium (1.12 - 1.32 MMOL/L) 1.23 1.30 1.33 H Lactic Acid (0.9 - 1.7 mmol/l) 1.7 2.0 H 1.8 H 4.3 *H Temperature (F) 97.7 O2 Delivery Device BiPAP 4L HFNC 4L HFNC Vent Mode 12/5 4L HFNC FiO2 (%) 40 03/04 Blood Gas Puncture Site Art Line Art Line Art Line O2 Saturation (90 - 100 %) 95.7 99.9 97.9 ABG pH (7.35 - 7.45) 7.337 L 7.342 L 7.204 *L ABG pCO2 (35.0 - 45 mmHg) 49.8 H 50.2 *H 50.2 *H ABG pO2 (80 - 100.0 mmHg) 80.9 382.6 *H 125.4 H ABG PO2/FiO2 Ratio (mm/Hg) 202.25 382.60 313.50 ABG HCO3 (22.0 - 26.0 MMOL/L) 27.1 H 27.2 H 19.8 L ABG Total CO2 28.7 28.7 21.3 ABG Base Excess (-4.0 - 4.0 MMOL/L) 1.0 1.5 -8.2 L ABG Hematocrit (37.5 - 50.7 %) 23 L 23 L 23 L ABG Hemoglobin (12.5 - 16.9 G/DL) 7.9 L 7.7 L 7.8 L Sodium (134 - 147 mmol/L) 148 H 146 140 Potassium (3.4 - 5.0 mmol/L) 4.0 3.7 3.5 Chloride (100 - 108 mmol/L) 108 105 108 Ionized Calcium (1.12 - 1.32 MMOL/L) 1.10 L 1.10 L 1.21 Lactic Acid (0.9 - 1.7 mmol/l) 6.5 *H 5.0 *H 3.9 H Temperature (F) 96.1 O2 Delivery Device Adult Vent Adult Vent Vent Mode SPONT AC Vent Rate (/MIN) 18 FiO2 (%) 40 100 40 Tidal Volume (ml) 480 PEEP (cmH2O) 5 5 Pressure Support (cmH2O) 03/04 1758 1733 1636 1609Blood Gas Puncture Site Art Line O2 Saturation (90 - 100 %) 99.4 100.0 100.0 100.0 ABG pH (7.35 - 7.45) 7.280 *L 7.323 L 7.383 7.382 ABG pCO2 (35.0 - 45 mmHg) 43.0 41.3 39.4 40.6 ABG pO2 (80 - 100.0 mmHg) 175.5 H 402.1 *H 405.8 *H 476.4 *H ABG PO2/FiO2 Ratio (mm/Hg) 351.00 ABG HCO3 (22.0 - 26.0 MMOL/L) 20.2 L 21.4 L 23.5 24.1 ABG Total CO2 21.5 22.7 24.7 25.3 ABG Base Excess (-4.0 - 4.0 MMOL/L) -6.5 L -4.4 L -1.5 -0.9 ABG Hematocrit (37.5 - 50.7 %) 20 L 25 L 18 L 20 L ABG Hemoglobin (12.5 - 16.9 G/DL) 6.9 L 8.3 L 6.2 L 6.7 L Shayla Test N/A Sodium (134 - 147 mmol/L) 141 143 139 140 Potassium (3.4 - 5.0 mmol/L) 3.3 L 3.3 L 4.6 4.4 Chloride (100 - 108 mmol/L) 107 109 H 106 108 Ionized Calcium (1.12 - 1.32 MMOL/L) 1.21 1.22 1.08 L 1.07 L Lactic Acid (0.9 - 1.7 mmol/l) 3.2 H 2.0 H 1.7 O2 Delivery Device Adult Vent Vent Mode AC Vent Rate (/MIN) 18 FiO2 (%) 50 Tidal Volume (ml) 480 PEEP (cmH2O) 5 Laboratory Tests 03/05 03/05 03/05 03/05 03/05 1436 1047 1006 0748 0743Chemistry Sodium (134 - 147 mEq/L) 148 H Potassium (3.4 - 5.0 mEq/L) 4.6 Chloride (100 - 108 mEq/L) 111 H Carbon Dioxide (21 - 33 mEq/l) 32 Anion Gap (0 - 20) 10 BUN (7 - 18 mg/dL) 37 H Creatinine (0.6 - 1.3 mg/dL) 2.3 H POC Creatinine (0.8 - 1.3 mg/dL) 2.4 H 2.4 H 2.4 H Glomerular Filtr Rate (70 - 80) 29.6 L Glucose (70 - 110 mg/dL) 134 H POC Glucose (70 - 110 MG/DL) 110 POC Glucose (mg/dL) (70 - 110 MG/DL) 223 H 88 113 H Calcium (8.0 - 10.5 mg/dL) 8.7 Ionized Calcium [place] (1.09 - 1.30 MMOL/L) 1.14 Magnesium (1.80 - 2.40 mg/dL) 2.35 03/05 03/05 03/05 03/05 03/05 0635 0532 0442 0209 0201 Chemistry POC Creatinine (0.8 - 1.3 mg/dL) 1.8 H 1.9 H 2.1 H 2.1 H POC Glucose (mg/dL) (70 - 110 MG/DL) 126 H 146 H 126 H 121 H Lactic Acid (0.4 - 1.9 mmol/L) 2.4 H 03/05 03/04 03/04 03/04 03/04 0201 2348 2259 2132 2132Chemistry Sodium (134 - 147 mEq/L) 150 H 151 H Potassium (3.4 - 5.0 mEq/L) 4.4 4.1 Chloride (100 - 108 mEq/L) 113 H 110 H Carbon Dioxide (21 - 33 mEq/l) 30 27 Anion Gap (0 - 20) 12 18 BUN (7 - 18 mg/dL) 30 H 29 H Creatinine (0.6 - 1.3 mg/dL) 1.9 H 1.8 H POC Creatinine (0.8 - 1.3 mg/dL) 1.6 H Glomerular Filtr Rate (70 - 80) 37.3 L 39.7 L Glucose (70 - 110 mg/dL) 132 H 212 H POC Glucose (mg/dL) (70 - 110 MG/DL) 178 H Lactic Acid (0.4 - 1.9 mmol/l) 4.2 *H 8.6 *H Calcium (8.0 - 10.5 mg/dL) 9.3 7.6 L Ionized Calcium [place] (1.09 - 1.30 0.95 LMMOL/L) Magnesium (1.80 - 2.40 mg/dL) 2.66 H Total Bilirubin (0.0 - 1.0 mg/dL) 0.40 0.70 Direct Bilirubin (0.0 - 0.30 MG/DL) 0.20 0.40 H Indirect Bilirubin (MG/DL) 0.20 0.30 AST (15 - 37 IUnit/L) 40 H 40 H ALT (30 - 65 IUnit/L) 13 L 11 L Total Alk Phosphatase (20 - 125 26 28IUnit/L) Total Protein (6.4 - 8.2 g/dL) 5.1 L 4.8 L Albumin (3.4 - 5.0 g/dL) 3.40 2.80 L 03/042 1907 1758 1743 Chemistry Sodium (134 - 147 mEq/L) 143 Potassium (3.4 - 5.0 mEq/L) 3.3 L Chloride (100 - 108 mEq/L) 110 H Carbon Dioxide (21 - 33 mEq/l) 22 Anion Gap (0 - 20) 14 BUN (7 - 18 mg/dL) 37 H Creatinine (0.6 - 1.3 mg/dL) 1.7 H POC Creatinine (0.8 - 1.3 mg/dL) 1.8 H 0.9 1.2 1.5 H Glomerular Filtr Rate (70 - 80) 42.6 L Glucose (70 - 110 mg/dL) 225 H POC Glucose (mg/dL) (70 - 110 MG/DL) 214 H 219 H 223 H 230 H Calcium (8.0 - 10.5 mg/dL) 8.3 Magnesium (1.80 - 2.40 mg/dL) 2.98 H 03/04 03/04 03/04 1733 1636 1609 Chemistry POC Creatinine (0.8 - 1.3 mg/dL) 1.4 H 1.4 H 1.4 H POC Glucose (mg/dL) (70 - 110 MG/DL) 196 H 232 H 245 H Laboratory Tests 03/04 03/04 03/04 03/04 1743 1731 1637 1611 Coagulation INR (0.8 - 1.2) 1.5 H PTT (Jarrett) (25.0 - 39.5 Seconds) 30.8 PT Patient/Control Mix (9.3 - 12.9 SECONDS) 16.4 H Activated Coag Time (74 - 137 SEC) 149 H 630 H 756 H Laboratory Tests 03/05 03/05 03/04 03/04 1052 0201 2132 1743Hematology WBC (4.5 - 11.0 x10 3/uL) 7.2 3.9 L 5.2 9.1 RBC (4.00 - 5.60 x10 6/uL) 2.71 L 2.51 L 2.80 L 2.46 L Hgb (12.5 - 16.9 g/dL) 8.3 L 7.7 L 8.6 L 7.5 L Hct (37.5 - 50.7 %) 25.2 L 22.9 L 25.4 L 23.3 L MCV (81.0 - 99.0 fL) 93.0 91.2 90.7 94.7 MCH (27.0 - 33.0 pg) 30.6 30.7 30.7 30.5 MCHC (33.0 - 37.0 g/dL) 32.9 L 33.6 33.9 32.2 L RDW (11.5 - 14.5 %) 17.1 H 16.2 H 15.6 H 14.4 Plt Count (150 - 400 x10 3/uL) 123 L 88 L 92 L 109 L MPV (7.0 - 9.0 fL) 11.0 H 11.0 H 10.8 H 10.8 H Neut % (Auto) (56.0 - 77.0 %) 85.7 H 86.9 H 86.5 H 84.1 H Lymph % (Auto) (14.0 - 32.0 %) 3.6 L 3.1 L 3.3 L 6.5 L [place] % (Auto) (4.8 - 9.0 %) 10.3 H 9.5 H 8.7 8.1 Eos % (Auto) (0.3 - 3.7 %) 0.0 L 0.0 L 0.0 L 0.2 L Baso % (Auto) (0.0 - 2.0 %) 0.0 0.0 0.2 0.1 Neut # (Auto) (2.0 - 7.6 x10 3/uL) 6.16 3.39 4.49 7.61 H Lymph # (Auto) (1.0 - 3.8 x10 3/uL) 0.26 L 0.12 L 0.17 L 0.59 L [place] # (Auto) (0.1 - 0.8 x10 3/uL) 0.74 0.37 0.45 0.73 Eos # (Auto) (0.0 - 0.2 x10 3/uL) 0.00 0.00 0.00 0.02 Baso # (Auto) (0.0 - 0.2 x10 3/uL) 0.00 0.00 0.01 0.01 Abs Immat Gran (auto) (0.00 - 0.03 x10 3/uL) 0.03 0.02 0.07 H 0.09 H Add Manual Diff NO NO NO NO Immature Gran % (0.0 - 2.0 %) 0.4 0.5 1.3 1.0 Nucleated RBC % (0 - 0 %) 0.0 0.0 0.0 0.0 Nucleated RBCs # (Man) (0.0 - 0.1 x10 3/uL) 0.00 0.00 0.00 0.00 Platelet Estimate (ADEQUATE THOUSAND) 140-175 Plt Morphology Comment NORMAL Radiology data:Recent Impressions:RADIOLOGY - XR CHEST 1 V 03/04 1822 Report Impression - Status: SIGNED Entered: 03/04/20231936 IMPRESSION: 1. Lines and tubes are in satisfactory position. 2. St. Mild bibasilar atelectasis. ernal wires are seen Impression By: Jose Juan Schuler M.D.CAT SCAN - CT HEAD/BRAIN W/O CONT 03/04 1933 Report Impression - Status: SIGNED Entered: 03/04/2023 194 IMPRESSION: 1. No acute intracranial abnormality. 2. Chronic ischemic changes are present as described. 3. There is mild acute and chronic paranasal sinus disease. ASSESSMENT: ASPECTS ([place] Stroke Program Early CT Score) is 10. Impression By: Jose Juan Schuler M.D.RADIOLOGY - XR CHEST 1 V 03/05 0501 Report Impression - Status: SIGNED Entered: 03/05/2023 0827 IMPRESSION: 1. Unchanged mild bibasilar airspace disease. 2. Lines and tubes, as above. Impression By: Erasmo Borges M.D.RADIOLOGY - XR ABDOMEN 1V (KUB) 03/05 0838 Report Impression - Status: SIGNED Entered: 03/05/2023 0852 IMPRESSION: No pathologic bowel distention.Impression By: [id number] Og Walton M.D. CT ANGIO CHEST 1. No evidence of acute pulmonary embolism. 2. Emphysematous changes within both lungs. 3. A 1.5 x 0.8 cm nodular opacity within the right lower lobe. This may represent neoplastic etiology or possible scarring. As per 2017 Fleischner criteria guidelines, in low and high risk patients, CT of the chest, PET/CT, or tissue sampling should be performed in 3 months. on 03/04/2023 Diagnosis, Assessment Plan Free Text DxA P NotesFree text DxA P notes:1. JERAMY likely ATN secondary to IV contrast. Marginal urine output. Patient isn.p.o. as currently on BiPAP. Start NS at 75 cc/h for 1 L. Monitor respiratorystatus closely. Avoid nephrotoxic medications. 2. Acute hypercapnic respiratory failure with COPD on BiPAP. Pulmonary following 3. Coronary disease status post CABG postop care per CT surgery 4. Left carotid artery stenosis Discussed with ICCThank you for the consult 1. Left ventricle: The cavity size is normal. Wall thickness is normal. Systolic function is mildly reduced. The estimated ejection fraction is 40-44%. Doppler parameters are consistent with abnormal left ventricular relaxation (grade 1 diastolic dysfunction).2. Regional wall motion abnormality: Severe hypokinesis of the apical anterior, apical septal, apical lateral, and apical myocardium; hypokinesis of the basal-mid anteroseptal myocardium.3. Right ventricle: Systolic pressure is moderately increased.4. Mitral valve: There is mild regurgitation.5. Tricuspid valve: Estimated right ventricular systolic pressure is 46 mmHg. There is moderate regurgitation.6. Pericardium, extracardiac: A trivial pericardial effusion is identified.7. Inferior vena cava: The vessel is dilated. The respirophasic diameter changes are in the normal range (= 50%). Inferior vena cava diameter is 2.1 cm. on 03/04/23 at 1717 at 1342 RPT #:[id number] OF [id number]:46:00G.PDOC2 [id number] for patient [id number]:42:46 [facility] 2023-03-05 13:33:00 [id number]/cASH2XDuvGMiA/Oml [id number]:33:00 [facility] ([facility])Pulmonology Progress NoteREPORT#:[id number] REPORT STATUS: SignedDATE:03/05/23 TIME: 1333 PATIENT: TEVIN NYE UNIT #: [id number]#: [id number] [address] AGE: 72 SEX: M ATTEND: Luci Villeda [facility] AUTHOR: Sharmila Alan * ALL edits or amendments must be made on the electronic/computer document * SubjectiveComments:On BIPAP, post op, off pressors ROSUnable to obtain due to:On BIPAP Objective GeneralVS/I O:Last Documented: Result Date Time Pulse Ox 100 03/05 0830 FiO2 40 03/05 0830 Pulse 74 03/05 0830 O2 Delivery BiPAP 03/05 0830 B/P 119/57 03/05 0708 B/P Mean 77 03/05 0708 Temp 36.8 03/05 0708 Resp 17 03/05 0708 O2 Flow Rate 3 03/05 0300 24 hour I O ending at 0700: 03/05 0700 03/04 1900 Intake Total 3628.00 Output Total 1045 50 Balance 2583.00 -50 Intake, IV 3038.00 Intake, Oral 240 Intake, 350 Packed Cells Output, Chest 720 Tube Drainage Output, Urine 325 50 Patient 88.3 kg Weight Weight Bed scale Measurement Method PATIENT WEIGHT: Weight (lb): 194Weight (oz): 10.69Weight (kg): 88.300 Medications:Active Meds + DC'd Last 24 HrsIpratropium [place] (ATROVENT) 500 MCG RTQ2H PRN PRN INH Cyanocobalamin (Vitamin B-12 500 mcg tab) 500 MCG DAILY PO Ferrous Sulfate (FERROUS SULFATE) 325 MG DAILY PO Bisacodyl (DULCOLAX) 10 MG ONCE PRN RECTAL Magnesium Hydroxide (MILK OF MAGNESIA) 30 ML ONCE PRN PO Atorvastatin Calcium (LIPITOR) 40 MG 2100 PO Budesonide (PULMICORT RESPULES) 0.5 MG RTBID INH Formoterol Fumarate (PERFOROMIST) 20 MCG RTBID NEB Methylprednisolone Sodium Succinate (Solu-Medrol 40 MG Vial) 40 MG Q12H IV Sterile Water (WATER FOR INJECTION) 1 ML ASDIR PRN IV Tamsulosin HCl (Flomax 0.4 mg) 0.8 MG PC BK PO Hydrocortisone Sodium Succinate (Solu-CORTEF) 25 MG Q8H IV (DC) Dopamine HCl/Dextrose (DOPamine 400MG/D5W 250ML) 250 ML ASDIR IV Magnesium Citrate (MAGNESIUM CITRATE) 150 ML ONCE ONE PO (DC) Clopidogrel Bisulfate (Plavix) 75 MG DAILY PO Mupirocin (BACTROBAN 2% 22 GM OINTMENT) 1 APPLIC BID NASAL Mupirocin (BACTROBAN 2% 22 GM OINTMENT) 1 APPLIC BID NASAL (CAN) Polyethylene Glycol (MIRALAX) 17 GM DAILY PO Amiodarone HCl (AMIODARONE HCL) 450 MG ASDIR IV (CKD) Dextrose/Water (D5%W NON-DEHP) 250 MLPantoprazole (PROTONIX) 40 MG DAILY@0600 PO Sodium Chloride (0.45% Sodium Chloride) 500 ML BOLUS ONCE ONE IV (DC) Vancomycin HCl (VANCOMYCIN HCL) 1,000 MG ONCE ONE IV (DC) Sodium Chloride (SODIUM CHLORIDE 0.9%) 250 MLOxycodone HCl (ROXICODONE) 5 MG Q4H PRN PRN PO (DC) Aspirin (ASPIRIN) 81 MG DAILY PO Calcium Chloride (CALCIUM CHLORIDE) 2 GM ONCE ONE IV (DC) Sodium Chloride (SODIUM CHLORIDE 0.9%) 100 MLAlbumin Human (ALBUMINAR 5% 12.5GM/250ML) 250 ML Q30M IV (DC) Hydrocortisone Sodium Succinate (Solu-CORTEF) 25 MG Q8HR IV (CAN) Amiodarone HCl (CORDARONE) 200 MG TID PO Docusate Sodium (COLACE) 100 MG BID PO Gabapentin (NEURONTIN) 200 MG BID PO (DC) Metoprolol Tartrate (LOPRESSOR) 12.5 MG Q12HR PO Sennosides (Senna Lax 8.6 MG TABLET) 17.2 MG BEDTIME PO Sugammadex Sodium (BRIDION) 0 .STK-MED ONE IV (DC) Ipratropium [place] (ATROVENT) 500 MCG RTQ4H INH Sugammadex Sodium (BRIDION) 0 .STK-MED ONE IV (DC) Sodium Bicarbonate (SODIUM BICARBONATE) 0 .STK-MED ONE IV (DC) Naloxone HCl (NARCAN) 0.4 MG ONCE ONE IV (DC) Naloxone HCl (NARCAN) 0 .STK-MED ONE IV (DC) Perflutren Protein Type A Microsphe (OPTISON 3ML VIAL) 0 .STK-MED ONE IV (DC) Acetaminophen (TYLENOL) 650 MG Q4H PRN PRN PO Acetaminophen (TYLENOL) 650 MG Q4H PRN PRN RECTAL Albumin Human (ALBUMINAR 25%) 25 GM ASDIR PRN IV Calcium Chloride (CALCIUM CHLORIDE) 1 GM ASDIR PRN IV Dextrose/Water (DEXTROSE 10% IN WATER) 125 ML ASDIR PRN IV (CKD) Dextrose/Water (DEXTROSE 10% IN WATER) 250 ML ASDIR PRN IV (CKD) Epinephrine (ADRENALIN CHLORIDE) 4 MG ASDIR IV Dextrose/Water (DEXTROSE 5% WATER) 246 MLGlucagon (GLUCAGON) 1 MG ASDIR PRN IM Insulin Human Regular (HumuLIN R) 100 UNIT ASDIR IV (CKD) Sodium Chloride (SODIUM CHLORIDE 0.9%) 99 MLMagnesium Sulfate (MAGNESIUM SULFATE 4GM/SWFI 100ML) 100 ML ASDIR PRN IV Magnesium Sulfate (MAGNESIUM SULFATE 2GM/SWFI 50ML) 50 ML ASDIR PRN IV Magnesium Sulfate/Dextrose (MAGNESIUM SULFATE 1GM/D5W 100ML) 100 ML ASDIR PRN IV Nitroglycerin/Dextrose (NITROGLYCERIN 50,000MCG/D5W 250ML) 250 ML ASDIR IV Norepinephrine Bitartrate (NOREPINEPHRINE 8 MG/NS 250 ML) 250 ML TITRATE IV Ondansetron HCl (ZOFRAN) 4 MG Q6H PRN PRN IV Potassium Chloride (KCL 20MEQ/SWFI 100ML) 100 ML ASDIR PRN IV Sodium Bicarbonate (SODIUM BICARBONATE) 50 MEQ ASDIR PRN IV Sodium Chloride (SODIUM CHLORIDE 0.9%) 1,000 ML .Q20H IV Sodium Chloride (SODIUM CHLORIDE 0.9%) 250 ML Q24H IV Vancomycin HCl (VANCOMYCIN HCL) 1,000 MG Q12H IV (CAN) Sodium Chloride (SODIUM CHLORIDE 0.9%) 250 MLAlbuterol Sulfate (VENTOLIN HFA) 0 .STK-MED ONE INH (DC) Hydrocortisone Sodium Succinate (Solu-CORTEF) 100 MG ONCE ONE IV (DC) Protamine Sulfate (PROTAMINE SULFATE) 0 .STK-MED ONE IV (DC) Insulin Human Lispro (HUMALOG) 0 AC HS SUBQ (DC) Clindamycin Phosphate (CLEOCIN 900 MG/NS 50 ML) 50 ML PREOP ONCALL IV (DC) Vancomycin HCl (Vancomycin 1,250 mg Inj (B2)) 1,250 MG PREOP ONCALL IV (DC) Sodium Chloride (SODIUM CHLORIDE 0.9%) 250 MLVerapamil HCl (ISOPTIN) 16.6 MG .Q24H ONE IV (DC) Heparin Sodium (Porcine) (HEPARIN SODIUM) 1,660 UNIT Sodium Bicarbonate (SODIUM BICARBONATE) 0.7 ML Nitroglycerin/Dextrose (NITROGLYCERIN 50MG/D5W 250ML) 8.3 MG Lactated Ringer's (LACTATED RINGERS) 949.5 MLBudesonide (PULMICORT RESPULES) 0.5 MG RTBID INH (DC) Formoterol Fumarate (PERFOROMIST) 20 MCG RTBID NEB (DC) Doxycycline Hyclate (VIBRAMYCIN) 100 MG Q12HR IV (DC) Sodium Chloride (SODIUM CHLORIDE 0.9% 100 ML) 100 MLGuaifenesin (MUCINEX 600MG TAB SA) 600 MG Q12HR PO (DC) Ipratropium [place] (ATROVENT) 500 MCG RTQ6H INH (DC) Mupirocin (BACTROBAN 2% 22 GM OINTMENT) 1 APPLIC BID NASAL (DC) Methylprednisolone Sodium Succinate (Solu-Medrol 40 MG Vial) 40 MG Q8H IV (DC) Sterile Water (WATER FOR INJECTION) 1 ML ASDIR PRN IV (DC) Acetaminophen (TYLENOL EXTRA STRENGTH) 1,000 MG PREOP ONCALL PO (DC) Gabapentin (NEURONTIN) 200 MG PREOP ONCALL PO (DC) Heparin Sodium (HEPARIN 5000 UNITS/ML) 0 ASDIR PRN IV (DC) Heparin Sodium (Porcine) (HEPARIN 25,000 UNITS/ 1/2NS 500ML) 500 ML ASDIR IV (DC) Nitroglycerin/Dextrose (NITROGLYCERIN 50,000MCG/D5W 250ML) 250 ML ASDIR IV (DC) Physical ExamGeneral appearance: respiratory support, sleeping comfortablyHead/eyes: atraumatic, normocephalic, PERRLNeck: supple/no meningismus, no bruit/NL carotids, no JVD, no lymphadenopathyCardiovascular: normal S1/S2, no rub, no gallopRespiratory/chest: decreased breath sounds, prolonged exp phase, wheezing, symmetric expansionAbdomen: soft, normal bowel sounds, no distention, no guardingExtremities: no clubbing, no cyanosisNeuro/SALES ASSISTANT: alert, oriented X 3, no motor deficitsSkin: dry, normal colorPsychiatry: normal affect, no hallucinations ResultsFindings/Data:Laboratory Tests 03/05/23 1052:[Embedded Image Not Available] 03/05/23 0748:[Embedded Image Not Available] 03/05/23 0201:[Embedded Image Not Available] 03/04/23 2132:[Embedded Image Not Available] 03/04/23 1743:[Embedded Image Not Available]Laboratory Tests 03/05 03/05 03/05 03/05 1047 0743 0635 0532 Blood Gas Puncture Site Art Line Art Line Art Line Art Line O2 Saturation (90 - 100 %) 97.6 95.1 97.4 96.9 ABG pH (7.35 - 7.45) 7.327 L 7.343 L 7.322 L 7.259 *L ABG pCO2 (35.0 - 45 mmHg) 63.4 *H 58.9 *H 58.5 *H 66.1 *H ABG pO2 (80 - 100.0 mmHg) 108.3 H 82.1 105.9 H 106.5 H ABG PO2/FiO2 Ratio (mm/Hg) 361.00 273.66 302.57 266.25 ABG HCO3 (22.0 - 26.0 MMOL/L) 33.2 *H 32.0 *H 30.3 *H 29.6 *H ABG Total CO2 35.2 33.8 32.1 31.7 ABG Base Excess (-4.0 - 4.0 MMOL/L) 7.2 H 6.3 H 4.2 H 2.5 ABG Hematocrit (37.5 - 50.7 %) 24 L 23 L 21 L 22 L ABG Hemoglobin (12.5 - 16.9 G/DL) 8.0 L 7.8 L 7.1 L 7.4 L Shayla Test N/A N/A Sodium (134 - 147 mmol/L) 148 H 147 147 145 Potassium (3.4 - 5.0 mmol/L) 4.4 4.6 4.6 4.7 Chloride (100 - 108 mmol/L) 108 108 108 109 H Ionized Calcium (1.12 - 1.32 MMOL/L) 1.25 1.19 1.22 1.23 Lactic Acid (0.9 - 1.7 mmol/l) 0.5 L 0.9 1.0 1.7 Temperature (F) 98.6 98.3 O2 Delivery Device BiPAP Bagging BiPAP BiPAP Vent Mode CPAP/PS 08/12 08/12 Vent Rate (/MIN) 24 FiO2 (%) 30 30 35 40 PEEP (cmH2O) 7 Pressure Support (cmH2O) 15 03/05 03/05 03/04 03/04 0442 0206 8636 lood Gas Puncture Site Art Line Art Line Art Line Art Line O2 Saturation (90 - 100 %) 96.2 96.5 93.3 95.7 ABG pH (7.35 - 7.45) 7.218 *L 7.312 L 7.328 L 7.337 L ABG pCO2 (35.0 - 45 mmHg) 77.2 *H 65.1 *H 53.9 *H 49.8 H ABG pO2 (80 - 100.0 mmHg) 103.7 H 97.2 72.6 L 80.9 ABG PO2/FiO2 Ratio (mm/Hg) 202.25 ABG HCO3 (22.0 - 26.0 MMOL/L) 31.5 *H 33.0 *H 28.5 *H 27.1 H ABG Total CO2 33.8 35.0 30.2 28.7 ABG Base Excess (-4.0 - 4.0 MMOL/L) 3.7 6.7 H 2.4 1.0 ABG Hematocrit (37.5 - 50.7 %) 24 L 21 L 22 L 23 L ABG Hemoglobin (12.5 - 16.9 G/DL) 8.0 L 7.2 L 7.4 L 7.9 L Sodium (134 - 147 mmol/L) 149 H 147 148 H 148 H Potassium (3.4 - 5.0 mmol/L) 4.7 4.4 3.9 4.0 Chloride (100 - 108 mmol/L) 108 108 108 108 Ionized Calcium (1.12 - 1.32 MMOL/L) 1.30 1.33 H 1.10 L Lactic Acid (0.9 - 1.7 mmol/l) 2.0 H 1.8 H 4.3 *H 6.5 *H Temperature (F) 97.7 96.1 O2 Delivery Device 4L HFNC 4L HFNC Adult Vent Vent Mode 4L HFNC SPONT FiO2 (%) 40 PEEP (cmH2O) 5 Pressure Support (cmH2O) 20 03/04 03/04 03/04 03/04 1942 1907 1758 1733Blood Gas Puncture Site Art Line Art Line Art Line O2 Saturation (90 - 100 %) 99.9 97.9 99.4 100.0 ABG pH (7.35 - 7.45) 7.342 L 7.204 *L 7.280 *L 7.323 L ABG pCO2 (35.0 - 45 mmHg) 50.2 *H 50.2 *H 43.0 41.3 ABG pO2 (80 - 100.0 mmHg) 382.6 *H 125.4 H 175.5 H 402.1 *H ABG PO2/FiO2 Ratio (mm/Hg) 382.60 313.50 351.00 ABG HCO3 (22.0 - 26.0 MMOL/L) 27.2 H 19.8 L 20.2 L 21.4 L ABG Total CO2 28.7 21.3 21.5 22.7 ABG Base Excess (-4.0 - 4.0 1.5 -8.2 L -6.5 L -4.4 LMMOL/L) ABG Hematocrit (37.5 - 50.7 %) 23 L 23 L 20 L 25 L ABG Hemoglobin (12.5 - 16.9 G/DL) 7.7 L 7.8 L 6.9 L 8.3 L Shayla Test N/A Sodium (134 - 147 mmol/L) 146 140 141 143 Potassium (3.4 - 5.0 mmol/L) 3.7 3.5 3.3 L 3.3 L Chloride (100 - 108 mmol/L) 105 108 107 109 H Ionized Calcium (1.12 - 1.32 1.10 L 1.21 1.21 1.22MMOL/L) Lactic Acid (0.9 - 1.7 mmol/l) 5.0 *H 3.9 H 3.2 H O2 Delivery Device Adult Vent Adult Vent Vent Mode AC AC Vent Rate (/MIN) 18 18 FiO2 (%) 100 40 50 Tidal Volume (ml) 480 480 PEEP (cmH2O) 5 5 03/04 03/04 03/04 03/04 1636 1609 1537 1506 Blood Gas O2 Saturation (90 - 100 %) 100.0 100.0 100.0 100.0 ABG pH (7.35 - 7.45) 7.383 7.382 7.367 7.221 *L ABG pCO2 (35.0 - 45 mmHg) 39.4 40.6 43.1 56.0 *H ABG pO2 (80 - 100.0 mmHg) 405.8 *H 476.4 *H 489.2 *H 497.4 *H ABG HCO3 (22.0 - 26.0 MMOL/L) 23.5 24.1 24.7 23.0 ABG Total CO2 24.7 25.3 26.1 24.7 ABG Base Excess (-4.0 - 4.0 MMOL/L) -1.5 -0.9 -0.6 -4.8 L ABG Hematocrit (37.5 - 50.7 %) 18 L 20 L 20 L 26 L ABG Hemoglobin (12.5 - 16.9 G/DL) 6.2 L 6.7 L 6.6 L 8.8 L Sodium (134 - 147 mmol/L) 139 140 140 141 Potassium (3.4 - 5.0 mmol/L) 4.6 4.4 4.5 3.4 Chloride (100 - 108 mmol/L) 106 108 106 109 H Ionized Calcium (1.12 - 1.32 MMOL/L) 1.08 L 1.07 L 1.02 L 1.15 Lactic Acid (0.9 - 1.7 mmol/l) 2.0 H 1.7 0.6 L < 0.3 L Laboratory Tests 03/05 03/05 03/05 03/05 03/05 1047 1006 0748 0743 0635Chemistry Sodium (134 - 147 mEq/L) 148 H Potassium (3.4 - 5.0 mEq/L) 4.6 Chloride (100 - 108 mEq/L) 111 H Carbon Dioxide (21 - 33 mEq/l) 32 Anion Gap (0 - 20) 10 BUN (7 - 18 mg/dL) 37 H Creatinine (0.6 - 1.3 mg/dL) 2.3 H POC Creatinine (0.8 - 1.3 mg/dL) 2.4 H 2.4 H 1.8 H Glomerular Filtr Rate (70 - 80) 29.6 L Glucose (70 - 110 mg/dL) 134 H POC Glucose (70 - 110 MG/DL) 110 POC Glucose (mg/dL) (70 - 110 MG/DL) 88 113 H 126 H Calcium (8.0 - 10.5 mg/dL) 8.7 Ionized Calcium [place] (1.09 - 1.30 MMOL/L) 1.14 Magnesium (1.80 - 2.40 mg/dL) 2.35 03/05 03/05 03/05 03/05 03/05 0532 0442 0209 0201 0201 Chemistry Sodium (134 - 147 mEq/L) 150 H Potassium (3.4 - 5.0 mEq/L) 4.4 Chloride (100 - 108 mEq/L) 113 H Carbon Dioxide (21 - 33 mEq/l) 30 Anion Gap (0 - 20) 12 BUN (7 - 18 mg/dL) 30 H Creatinine (0.6 - 1.3 mg/dL) 1.9 H POC Creatinine (0.8 - 1.3 mg/dL) 1.9 H 2.1 H 2.1 H Glomerular Filtr Rate (70 - 80) 37.3 L Glucose (70 - 110 mg/dL) 132 H POC Glucose (mg/dL) (70 - 110 MG/DL) 146 H 126 H 121 H Lactic Acid (0.4 - 1.9 mmol/L) 2.4 H Calcium (8.0 - 10.5 mg/dL) 9.3 Magnesium (1.80 - 2.40 mg/dL) 2.66 H Total Bilirubin (0.0 - 1.0 mg/dL) 0.40 Direct Bilirubin (0.0 - 0.30 MG/DL) 0.20 Indirect Bilirubin (MG/DL) 0.20 AST (15 - 37 IUnit/L) 40 H ALT (30 - 65 IUnit/L) 13 L Total Alk Phosphatase (20 - 125 IUnit/L) 26 Total Protein (6.4 - 8.2 g/dL) 5.1 L Albumin (3.4 - 5.0 g/dL) 3.40 03/04 03/04 03/04 03/04 03/04 2348 2259 2132 2132 2056Chemistry Sodium (134 - 147 mEq/L) 151 H Potassium (3.4 - 5.0 mEq/L) 4.1 Chloride (100 - 108 mEq/L) 110 H Carbon Dioxide (21 - 33 mEq/l) 27 Anion Gap (0 - 20) 18 BUN (7 - 18 mg/dL) 29 H Creatinine (0.6 - 1.3 mg/dL) 1.8 H POC Creatinine (0.8 - 1.3 mg/dL) 1.6 H 1.8 H Glomerular Filtr Rate (70 - 80) 39.7 L Glucose (70 - 110 mg/dL) 212 H POC Glucose (mg/dL) (70 - 110 MG/DL) 178 H 214 H Lactic Acid (0.4 - 1.9 mmol/l) 4.2 *H 8.6 *H Calcium (8.0 - 10.5 mg/dL) 7.6 L Ionized Calcium [place] (1.09 - 1.30 0.95 LMMOL/L) Total Bilirubin (0.0 - 1.0 mg/dL) 0.70 Direct Bilirubin (0.0 - 0.30 MG/DL) 0.40 H Indirect Bilirubin (MG/DL) 0.30 AST (15 - 37 IUnit/L) 40 H ALT (30 - 65 IUnit/L) 11 L Total Alk Phosphatase (20 - 125 IUnit/L) 28 Total Protein (6.4 - 8.2 g/dL) 4.8 L Albumin (3.4 - 5.0 g/dL) 2.80 L 03/04 03/04 03/04 03/04 03/04 1942 1907 1758 1743 1733 Chemistry Sodium (134 - 147 mEq/L) 143 Potassium (3.4 - 5.0 mEq/L) 3.3 L Chloride (100 - 108 mEq/L) 110 H Carbon Dioxide (21 - 33 mEq/l) 22 Anion Gap (0 - 20) 14 BUN (7 - 18 mg/dL) 37 H Creatinine (0.6 - 1.3 mg/dL) 1.7 H POC Creatinine (0.8 - 1.3 mg/dL) 0.9 1.2 1.5 H 1.4 H Glomerular Filtr Rate (70 - 80) 42.6 L Glucose (70 - 110 mg/dL) 225 H POC Glucose (mg/dL) (70 - 110 MG/DL) 219 H 223 H 230 H 196 H Calcium (8.0 - 10.5 mg/dL) 8.3 Magnesium (1.80 - 2.40 mg/dL) 2.98 H 03/04 03/04 03/04 03/04 1636 1609 1537 1506 Chemistry POC Creatinine (0.8 - 1.3 mg/dL) 1.4 H 1.4 H 1.3 1.2 POC Glucose (mg/dL) (70 - 110 MG/DL) 232 H 245 H 241 H 271 H Laboratory Tests 03/04 03/04 03/04 03/04 03/04 1743 1731 1637 1611 1539Coagulation INR (0.8 - 1.2) 1.5 H PTT ([place]) (25.0 - 39.5 Seconds) 30.8 PT Patient/Control Mix (9.3 - 12.9 16.4 HSECONDS) Activated Coag Time (74 - 137 SEC) 149 H 630 H 756 H 967 H 03/04 1508 Coagulation Activated Coag Time (74 - 137 SEC) 834 H Laboratory Tests 03/05 03/05 03/04 03/04 1052 0201 2132 1743Hematology WBC (4.5 - 11.0 x10 3/uL) 7.2 3.9 L 5.2 9.1 RBC (4.00 - 5.60 x10 6/uL) 2.71 L 2.51 L 2.80 L 2.46 L Hgb (12.5 - 16.9 g/dL) 8.3 L 7.7 L 8.6 L 7.5 L Hct (37.5 - 50.7 %) 25.2 L 22.9 L 25.4 L 23.3 L MCV (81.0 - 99.0 fL) 93.0 91.2 90.7 94.7 MCH (27.0 - 33.0 pg) 30.6 30.7 30.7 30.5 MCHC (33.0 - 37.0 g/dL) 32.9 L 33.6 33.9 32.2 L RDW (11.5 - 14.5 %) 17.1 H 16.2 H 15.6 H 14.4 Plt Count (150 - 400 x10 3/uL) 123 L 88 L 92 L 109 L MPV (7.0 - 9.0 fL) 11.0 H 11.0 H 10.8 H 10.8 H Neut % (Auto) (56.0 - 77.0 %) 85.7 H 86.9 H 86.5 H 84.1 H Lymph % (Auto) (14.0 - 32.0 %) 3.6 L 3.1 L 3.3 L 6.5 L [place] % (Auto) (4.8 - 9.0 %) 10.3 H 9.5 H 8.7 8.1 Eos % (Auto) (0.3 - 3.7 %) 0.0 L 0.0 L 0.0 L 0.2 L Baso % (Auto) (0.0 - 2.0 %) 0.0 0.0 0.2 0.1 Neut # (Auto) (2.0 - 7.6 x10 3/uL) 6.16 3.39 4.49 7.61 H Lymph # (Auto) (1.0 - 3.8 x10 3/uL) 0.26 L 0.12 L 0.17 L 0.59 L [place] # (Auto) (0.1 - 0.8 x10 3/uL) 0.74 0.37 0.45 0.73 Eos # (Auto) (0.0 - 0.2 x10 3/uL) 0.00 0.00 0.00 0.02 Baso # (Auto) (0.0 - 0.2 x10 3/uL) 0.00 0.00 0.01 0.01 Abs Immat Gran (auto) (0.00 - 0.03 x10 3/uL) 0.03 0.02 0.07 H 0.09 H Add Manual Diff NO NO NO NO Immature Gran % (0.0 - 2.0 %) 0.4 0.5 1.3 1.0 Nucleated RBC % (0 - 0 %) 0.0 0.0 0.0 0.0 Nucleated RBCs # (Man) (0.0 - 0.1 x10 3/uL) 0.00 0.00 0.00 0.00 Platelet Estimate (ADEQUATE THOUSAND) 140-175 Plt Morphology Comment NORMAL Radiology data:Recent Impressions:RADIOLOGY - XR CHEST 1 V 03/04 182 Report Impression - Status: SIGNED Entered: 03/04/2023 193 IMPRESSION: 1. Lines and tubes are in satisfactory position. 2. St. Mild bibasilar atelectasis. ernal wires are seen Impression By: Jose Juan Schuler M.D.CAT SCAN - CT HEAD/BRAIN W/O CONT 03/04 1933 Report Impression - Status: SIGNED Entered: 03/04/2023 1940 IMPRESSION: 1. No acute intracranial abnormality. 2. Chronic ischemic changes are present as described. 3. There is mild acute and chronic paranasal sinus disease. ASSESSMENT: ASPECTS ([place] Stroke Program Early CT Score) is 10. Impression By: Jose Juan Schuler M.D.RADIOLOGY - XR CHEST 1 V 03/05 0501 Report Impression - Status: SIGNED Entered: 03/05/2023 0827 IMPRESSION: 1. Unchanged mild bibasilar airspace disease. 2. Lines and tubes, as above. Impression By: Erasmo Borges M.D.RADIOLOGY - XR ABDOMEN 1V (KUB) 03/05 0838 Report Impression - Status: SIGNED Entered: 03/05/2023 0852 IMPRESSION: No pathologic bowel distention.Impression By: [id number] - Davi Walton M.D. Results: x-ray personally reviewed Diagnosis, Assessment PlanFree Text A P:1- Acute COPD exacerbation/postop respiratory insufficiency2- Recent pulmonary embolism on Eliquis3- NSTEMI/Multivessel coronary artery disease5- Hypertension6- History of tobacco use7- Obesity8- Acute renal failure9- S/P CABG X4 03/04/23 - BIPAP support, AVAPS mode- IV Solu-Medrol 40 mg every 12 hours- Pulmicort Perforomist and Atrovent nebulizers- Chest tubes per CTS- Mucomyst/Hypersal as needed- CTA chest reviewed, no PE, emphysema, small effusions, RLL 1.[address] chest in 6-8 weeks. Patient informed - Lower extremity Doppler negative for DVT- D/W ICC at 1337 RPT #:[id number] OF REPORTPRProgress [id number]:33:00G.[id number] able for patient [id number]:37:35 [facility] 2023-03-05 10:01:00 [id number] gXNqR/[id number]/PLs+Y9/[id number]:01:00 [facility] ([facility])Neurology Progress NoteREPORT#:[id number] REPORT STATUS: SignedDATE:03/05/23 TIME: 100 PATIENT: TEVIN NYE UNIT #: [id number]#: [id number] [address] [birth year] AGE: 72 SEX: M ATTEND: Luci Villeda [facility] AUTHOR: Ko Kerr MD * ALL edits or amendments must be made on the electronic/computer document * SubjectiveChief complaint:encephalopathy, non responsiveHPI:Patient significantly improved today. Extubated. On BiPAP. Moves all extremities and follows commands. Review of Systems Free Text ROS NotesFree Text ROS Notes:A 12 point review of systems was reviewed with the patient and negative other than noted in HPI. Objective GeneralVS:Last Documented: Result Date Time Pulse Ox 97 03/05 0708 B/P 119/57 03/05 0708 B/P Mean 77 03/05 0708 Temp 36.8 03/05 0708 Pulse 82 03/05 0708 Resp 17 03/05 07 FiO2 40 03/05 0520 O2 Delivery BiPAP 03/05 0520 O2 Flow Rate 3 03/05 0300 PATIENT WEIGHT: Weight (lb): 194Weight (oz): 10.69Weight (kg): 88.300 MedicationsCurrent Home MedicationsOXYBUTYNIN (DITROPAN) 5 MG PO BID TAMSULOSIN ER (FLOMAX) 0.8 MG PO DAILY FLUoxetine (PROzac) 10 MG PO QAM LATANOPROST (XALATAN 0.005% OPHTH SOLN) 1 DROP EACH EYE BEDTIME LISINOPRIL (ZESTRIL) 20 MG PO DAILY METOPROLOL TARTRATE (LOPRESSOR) 25 MG PO BID INSULIN LISPRO (HumaLOG KWIKPEN (3mL)) 6 INSULIN LISPRO (HumaLOG) 50 CALCIUM CARBONATE/VIT D3 (CALCIUM CARB/VIT D3 500 MG/200 UNITS) 2 TAB PO DAILY CYANOCOBALAMIN (VITAMIN B-12) 100 MCG PO DAILY HYDROCHLOROTHIAZIDE (HYDRODIURIL) 25 MG PO DAILY APIXABAN (ELIQUIS) 5 MG PO BID ASPIRIN 81 MG PO DAILY ATORVASTATIN (LIPITOR) 5 MG PO DAILY Active Meds + DC'd Last 24 HrsIpratropium [place] (ATROVENT) 500 MCG RTQ2H PRN PRN INH Cyanocobalamin (Vitamin B-12 500 mcg tab) 500 MCG DAILY PO Ferrous Sulfate (FERROUS SULFATE) 325 MG DAILY PO Bisacodyl (DULCOLAX) 10 MG ONCE PRN RECTAL Magnesium Hydroxide (MILK OF MAGNESIA) 30 ML ONCE PRN PO Atorvastatin Calcium (LIPITOR) 40 MG 2100 PO Hydrocortisone Sodium Succinate (Solu-CORTEF) 25 MG Q8H IV Dopamine HCl/Dextrose (DOPamine 400MG/D5W 250ML) 250 ML ASDIR IV Magnesium Citrate (MAGNESIUM CITRATE) 150 ML ONCE ONE PO (DC) Clopidogrel Bisulfate (Plavix) 75 MG DAILY PO Mupirocin (BACTROBAN 2% 22 GM OINTMENT) 1 APPLIC BID NASAL Mupirocin (BACTROBAN 2% 22 GM OINTMENT) 1 APPLIC BID NASAL (CAN) Polyethylene Glycol (MIRALAX) 17 GM DAILY PO Amiodarone HCl (AMIODARONE HCL) 450 MG ASDIR IV (CKD) Dextrose/Water (D5%W NON-DEHP) 250 MLPantoprazole (PROTONIX) 40 MG DAILY@0600 PO Sodium Chloride (0.45% Sodium Chloride) 500 ML BOLUS ONCE ONE IV (DC) Vancomycin HCl (VANCOMYCIN HCL) 1,000 MG ONCE ONE IV (DC) Sodium Chloride (SODIUM CHLORIDE 0.9%) 250 MLOxycodone HCl (ROXICODONE) 5 MG Q4H PRN PRN PO Aspirin (ASPIRIN) 81 MG DAILY PO Calcium Chloride (CALCIUM CHLORIDE) 2 GM ONCE ONE IV (DC) Sodium Chloride (SODIUM CHLORIDE 0.9%) 100 MLAlbumin Human (ALBUMINAR 5% 12.5GM/250ML) 250 ML Q30M IV (DC) Hydrocortisone Sodium Succinate (Solu-CORTEF) 25 MG Q8HR IV (CAN) Amiodarone HCl (CORDARONE) 200 MG TID PO Docusate Sodium (COLACE) 100 MG BID PO Gabapentin (NEURONTIN) 200 MG BID PO Metoprolol Tartrate (LOPRESSOR) 12.5 MG Q12HR PO Sennosides (Senna Lax 8.6 MG TABLET) 17.2 MG BEDTIME PO Sugammadex Sodium (BRIDION) 0 .STK-MED ONE IV (DC) Ipratropium [place] (ATROVENT) 500 MCG RTQ4H INH Sugammadex Sodium (BRIDION) 0 .STK-MED ONE IV (DC) Sodium Bicarbonate (SODIUM BICARBONATE) 0 .STK-MED ONE IV (DC) Naloxone HCl (NARCAN) 0.4 MG ONCE ONE IV (DC) Naloxone HCl (NARCAN) 0 .STK-MED ONE IV (DC) Perflutren Protein Type A Microsphe (OPTISON 3ML VIAL) 0 .STK-MED ONE IV (DC) Acetaminophen (TYLENOL) 650 MG Q4H PRN PRN PO Acetaminophen (TYLENOL) 650 MG Q4H PRN PRN RECTAL Albumin Human (ALBUMINAR 25%) 25 GM ASDIR PRN IV Calcium Chloride (CALCIUM CHLORIDE) 1 GM ASDIR PRN IV Dextrose/Water (DEXTROSE 10% IN WATER) 125 ML ASDIR PRN IV (CKD) Dextrose/Water (DEXTROSE 10% IN WATER) 250 ML ASDIR PRN IV (CKD) Epinephrine (ADRENALIN CHLORIDE) 4 MG ASDIR IV Dextrose/Water (DEXTROSE 5% WATER) 246 MLGlucagon (GLUCAGON) 1 MG ASDIR PRN IM Insulin Human Regular (HumuLIN R) 100 UNIT ASDIR IV (CKD) Sodium Chloride (SODIUM CHLORIDE 0.9%) 99 MLMagnesium Sulfate (MAGNESIUM SULFATE 4GM/SWFI 100ML) 100 ML ASDIR PRN IV Magnesium Sulfate (MAGNESIUM SULFATE 2GM/SWFI 50ML) 50 ML ASDIR PRN IV Magnesium Sulfate/Dextrose (MAGNESIUM SULFATE 1GM/D5W 100ML) 100 ML ASDIR PRN IV Nitroglycerin/Dextrose (NITROGLYCERIN 50,000MCG/D5W 250ML) 250 ML ASDIR IV Norepinephrine Bitartrate (NOREPINEPHRINE 8 MG/NS 250 ML) 250 ML TITRATE IV Ondansetron HCl (ZOFRAN) 4 MG Q6H PRN PRN IV Potassium Chloride (KCL 20MEQ/SWFI 100ML) 100 ML ASDIR PRN IV Sodium Bicarbonate (SODIUM BICARBONATE) 50 MEQ ASDIR PRN IV Sodium Chloride (SODIUM CHLORIDE 0.9%) 1,000 ML .Q20H IV Sodium Chloride (SODIUM CHLORIDE 0.9%) 250 ML Q24H IV Vancomycin HCl (VANCOMYCIN HCL) 1,000 MG Q12H IV (CAN) Sodium Chloride (SODIUM CHLORIDE 0.9%) 250 MLAlbuterol Sulfate (VENTOLIN HFA) 0 .STK-MED ONE INH (DC) Hydrocortisone Sodium Succinate (Solu-CORTEF) 100 MG ONCE ONE IV (DC) Protamine Sulfate (PROTAMINE SULFATE) 0 .STK-MED ONE IV (DC) Glycopyrrolate (GLYCOPYRROLATE) 0 .STK-MED ONE .ROUTE (DC) Neostigmine Methylsulfate (PROSTIGMIN) 0 .STK-MED ONE .ROUTE (DC) Protamine Sulfate (PROTAMINE SULFATE) 0 .STK-MED ONE IV (DC) Parenteral Electrolytes (PLASMA-LYTE A pH 7.4) 1,000 ML .STK-MED ONE IV (DC) Fentanyl Citrate (SUBLIMAZE) 0 .STK-MED ONE .ROUTE (DC) Papaverine HCl (PAPAVERINE HCL) 0 .STK-MED ONE IV (DC) Albumin Human (ALBUMINAR-25%) 100 ML .STK-MED ONE IV (DC) Fentanyl Citrate (SUBLIMAZE) 0 .STK-MED ONE IV (DC) Clindamycin Phosphate (CLEOCIN 900 MG/NS 50 ML) 50 ML .STK-MED ONE IV (DC) Sodium Chloride (SODIUM CHLORIDE 0.9%) 250 ML .STK-MED ONE IV (DC) Vancomycin HCl (Vancomycin 1,250 mg Inj (B2)) 0 .STK-MED ONE IV (DC) Insulin Human Lispro (HUMALOG) 0 AC HS SUBQ (DC) Rocuronium [place] (ZEMURON) 0 .STK-MED ONE IV (DC) Clindamycin Phosphate (CLEOCIN 900 MG/NS 50 ML) 50 ML PREOP ONCALL IV (DC) Vancomycin HCl (Vancomycin 1,250 mg Inj (B2)) 1,250 MG PREOP ONCALL IV (DC) Sodium Chloride (SODIUM CHLORIDE 0.9%) 250 MLVerapamil HCl (ISOPTIN) 16.6 MG .Q24H ONE IV (DC) Heparin Sodium (Porcine) (HEPARIN SODIUM) 1,660 UNIT Sodium Bicarbonate (SODIUM BICARBONATE) 0.7 ML Nitroglycerin/Dextrose (NITROGLYCERIN 50MG/D5W 250ML) 8.3 MG Lactated Ringer's (LACTATED RINGERS) 949.5 MLBudesonide (PULMICORT RESPULES) 0.5 MG RTBID INH (DC) Formoterol Fumarate (PERFOROMIST) 20 MCG RTBID NEB (DC) Doxycycline Hyclate (VIBRAMYCIN) 100 MG Q12HR IV (DC) Sodium Chloride (SODIUM CHLORIDE 0.9% 100 ML) 100 MLGuaifenesin (MUCINEX 600MG TAB SA) 600 MG Q12HR PO (DC) Ipratropium [place] (ATROVENT) 500 MCG RTQ6H INH (DC) Mupirocin (BACTROBAN 2% 22 GM OINTMENT) 1 APPLIC BID NASAL (DC) Methylprednisolone Sodium Succinate (Solu-Medrol 40 MG Vial) 40 MG Q8H IV (DC) Sterile Water (WATER FOR INJECTION) 1 ML ASDIR PRN IV (DC) Acetaminophen (TYLENOL EXTRA STRENGTH) 1,000 MG PREOP ONCALL PO (DC) Gabapentin (NEURONTIN) 200 MG PREOP ONCALL PO (DC) Heparin Sodium (HEPARIN 5000 UNITS/ML) 0 ASDIR PRN IV (DC) Heparin Sodium (Porcine) (HEPARIN 25,000 UNITS/ 1/2NS 500ML) 500 ML ASDIR IV (DC) Nitroglycerin/Dextrose (NITROGLYCERIN 50,000MCG/D5W 250ML) 250 ML ASDIR IV (DC) Dietitian nutrition assessmentThe data set between the solid lines has been imported from the dietitian's assessment. BMI Calculated: 30.5Nutrition related diagnosis: Nutrition diagnosis details: Nutrition problem: Nutrition etiology: Nutrition signs and symptoms: Nutrition prescription: Dietitian name: Assessment completed: Physical ExamNeuro comment:GEN: NAD, pleasant, cooperativeCVS: RRR, no carotid bruitCHEST: No signs of resp distress, on BiPAPABD: Soft, NTTP NEUROMENTAL STATUS: AAOx3, memory intact, fund of knowledge appropriate LANG/SPEECH: Naming and repetition intact, fluent, follows 3-step commands CRANIAL NERVES:II: Pupils equal and reactive, no RAPD, no VF deficits, normal fundusIII, IV, : EOM intact, no gaze preference or deviation, no nystagmus.V: normal sensation in V1, V2, and V3 segments bilaterallyVII: no asymmetry, no nasolabial fold flatteningVIII: normal hearing to speechIX, X: normal palatal elevation, no uvular deviationXI: 5/5 head turn and 5/5 shoulder shrug bilaterallyXII: midline tongue protrusion MOTOR:5/5 muscle power in Rt shoulder abductors/adductors, elbow flexors/extensors, wrist flexors/extensors, finger abductors/adductors. 5/5 in Rt hipflexors/extensors, knee flexors/extensors, ankle dorsiflexors and planter flexors. 5/5 muscle power in Lt shoulder abductors/adductors, elbow flexors/extensors, wrist flexors/extensors, finger abductors/adductors. 5/5 in Lt hipflexors/extensors, knee flexors/extensors, ankle dorsiflexors and planter flexors. REFLEXES: 2/4 throughout, bilateral flexor planter response, no Nelson's, no clonus SENSORY:Normal to touchNo hemineglect, no extinction to double sided stimulation (visual tactile) COORD: Normal finger to nose and heel to xavier, no tremor, no dysmetria Diagnosis, Assessment PlanFree Text A P:Patient is a 72 yo male with CAD s/p CABG today as well as severe carotid arterystenosis on the left for whom a code stroke was called due to fixed pupils afterreceiving narcan. Ceribell shows diffuse slowing without epileptiform activity. CTH was grossly unremarkable with no ICH, early ischemic changes and there were no hyperdense vessels noted. Discussed with Dr. Sheehan after train of four was only 1 of 4 and suggamadex was given following which the patient began to followcommands. - Can continue every 2 hours neurochecks while in the ICU, once transferred out can go to every 4 neurochecks- given improvement you can defer CTA H N- maintain SBP 110-180mmHg from neuro standpoint but will defer to cv surgery and ICC. - exam improved with NM blockade reversal- ceribell reviewed at bedside and can be removed- Please contact neurology with any change in exam. Disposition: Patient close to baseline, on BiPAP but following all commands and moving all extremities. No need for further inpatient neurologic work-up at this time. Continue neurochecks while in house and call for any changes. at 1003 RPT #:[id number] OF REPORTPRProgress [id number]:01:[id number] able for patient [id number]:04:05 [facility] 2023-03-05 06:47:00 [id number]:47:00 [facility] ([facility]CARECardiology Progress NoteREPORT#:[id number] REPORT STATUS: SignedDATE:03/05/23 TIME: 06 PATIENT: TEVIN NYE UNIT #: [id number]#: [id number] [address] AGE: 72 SEX: M ATTEND: Luci Villeda [facility] AUTHOR: Anuj Sylvester MD * ALL edits or amendments must be made on the electronic/computer document * SubjectiveChief complaint:Weak Objective GeneralVS/I O:24 hour I O ending at 0700: 03/05 0700 03/04 1900 Intake Total 3628.00 Output Total 1045 50 Balance 2583.00 -50 Intake, IV 3038.00 Intake, Oral 240 Intake, 350 Packed Cells Output, Chest 720 Tube Drainage Output, Urine 325 50 Patient 88.3 kg Weight Weight Bed scale Measurement Method Vital Signs: Date Time Temp Pulse Resp B/P B/P Pulse O2 O2 Flow FiO2 Mean Ox Delivery Rate 03/05 0520 80 100 40 03/05 0520 100 BiPAP 40 03/05 0300 98 High flow 3 nasal cannula 03/05 0044 100 High flow 3 nasal cannula 03/04 2330 97.3 89 23 106/57 77 98 03/04 2300 97.7 87 21 111/48 70 98 03/04 2230 97.3 85 15 108/51 74 98 03/04 220 Nasal 4 cannula 03/04 2200 113/50 71 03/04 2200 97.2 85 14 71 97 03/048 98 High flow 4 nasal cannula 03/04 2130 96.6 90 20 119/58 82 100 03/04 2100 96.1 84 15 115/56 78 98 03/04 2045 95.9 85 21 128/54 76 97 03/04 2032 86 13 98 03/04 2030 95.9 83 18 120/57 82 100 03/04 2025 86 98 40 03/04 2000 Ventilator 40 03/04 2000 95.5 88 18 161/74 106 99 03/04 1955 87 100 100 03/04 194 95.5 95 21 187/72 118 100 03/04 1940 100 Ventilator 100 03/04 1930 95.7 86 18 158/58 98 100 03/04 1900 96.1 93 18 114/56 81 100 03/04 1815 Ventilator 40 03/04 1801 40 03/04 1801 100 Ventilator 40 03/04 1750 100 Ventilator 50 03/04 1750 82 100 50 03/04 1750 82 18 89/37 100 03/04 1130 79 17 114/56 81 96 03/04 1100 86 26 124/62 87 89 06 1030 76 21 132/64 92 97 03/04 1000 79 16 138/63 91 98 03/04 0930 77 19 118/58 83 99 03/04 0900 74 17 115/57 82 100 03/04 0836 96 High flow 4 nasal cannula 03/04 0830 78 19 119/57 82 95 03/04 0800 Nasal 4 cannula 03/04 0800 76 17 111/58 81 94 03/04 0745 77 22 117/55 80 95 03/04 0730 80 19 123/61 86 97 03/04 0715 80 23 141/69 99 99 03/04 0700 84 18 153/76 106 100 PATIENT WEIGHT: Weight (lb): 194Weight (oz): 10.69Weight (kg): 88.300 Medications:Active Meds + DC'd Last 24 HrsIpratropium Green[place] (ATROVENT) 500 MCG RTQ2H PRN PRN INH Cyanocobalamin (Vitamin B-12 500 mcg tab) 500 MCG DAILY PO Ferrous Sulfate (FERROUS SULFATE) 325 MG DAILY PO Bisacodyl (DULCOLAX) 10 MG ONCE PRN RECTAL Magnesium Hydroxide (MILK OF MAGNESIA) 30 ML ONCE PRN PO Atorvastatin Calcium (LIPITOR) 40 MG 2100 PO Clopidogrel Bisulfate (Plavix) 75 MG DAILY PO Mupirocin (BACTROBAN 2% 22 GM OINTMENT) 1 APPLIC BID NASAL Mupirocin (BACTROBAN 2% 22 GM OINTMENT) 1 APPLIC BID NASAL (CAN) Polyethylene Glycol (MIRALAX) 17 GM DAILY PO Pantoprazole (PROTONIX) 40 MG DAILY@0600 PO Sodium Chloride (0.45% Sodium Chloride) 500 ML BOLUS ONCE ONE IV Vancomycin HCl (VANCOMYCIN HCL) 1,000 MG ONCE ONE IV (DC) Sodium Chloride (SODIUM CHLORIDE 0.9%) 250 MLOxycodone HCl (ROXICODONE) 5 MG Q4H PRN PRN PO Aspirin (ASPIRIN) 81 MG DAILY PO Calcium Chloride (CALCIUM CHLORIDE) 2 GM ONCE ONE IV (DC) Sodium Chloride (SODIUM CHLORIDE 0.9%) 100 MLAlbumin Human (ALBUMINAR 5% 12.5GM/250ML) 250 ML Q30M IV (DC) Hydrocortisone Sodium Succinate (Solu-CORTEF) 25 MG Q8HR IV (CAN) Amiodarone HCl (CORDARONE) 200 MG TID PO Docusate Sodium (COLACE) 100 MG BID PO Gabapentin (NEURONTIN) 200 MG BID PO Metoprolol Tartrate (LOPRESSOR) 12.5 MG Q12HR PO Sennosides (Senna Lax 8.6 MG TABLET) 17.2 MG BEDTIME PO Sugammadex Sodium (BRIDION) 0 .STK-MED ONE IV (DC) Ipratropium [place] (ATROVENT) 500 MCG RTQ4H INH Sugammadex Sodium (BRIDION) 0 .STK-MED ONE IV (DC) Sodium Bicarbonate (SODIUM BICARBONATE) 0 .STK-MED ONE IV (DC) Naloxone HCl (NARCAN) 0.4 MG ONCE ONE IV (DC) Naloxone HCl (NARCAN) 0 .STK-MED ONE IV (DC) Perflutren Protein Type A Microsphe (OPTISON 3ML VIAL) 0 .STK-MED ONE IV (DC) Acetaminophen (TYLENOL) 650 MG Q4H PRN PRN PO Acetaminophen (TYLENOL) 650 MG Q4H PRN PRN RECTAL Albumin Human (ALBUMINAR 25%) 25 GM ASDIR PRN IV Calcium Chloride (CALCIUM CHLORIDE) 1 GM ASDIR PRN IV Dextrose/Water (DEXTROSE 10% IN WATER) 125 ML ASDIR PRN IV (CKD) Dextrose/Water (DEXTROSE 10% IN WATER) 250 ML ASDIR PRN IV (CKD) Epinephrine (ADRENALIN CHLORIDE) 4 MG ASDIR IV Dextrose/Water (DEXTROSE 5% WATER) 246 MLGlucagon (GLUCAGON) 1 MG ASDIR PRN IM Insulin Human Regular (HumuLIN R) 100 UNIT ASDIR IV (CKD) Sodium Chloride (SODIUM CHLORIDE 0.9%) 99 MLMagnesium Sulfate (MAGNESIUM SULFATE 4GM/SWFI 100ML) 100 ML ASDIR PRN IV Magnesium Sulfate (MAGNESIUM SULFATE 2GM/SWFI 50ML) 50 ML ASDIR PRN IV Magnesium Sulfate/Dextrose (MAGNESIUM SULFATE 1GM/D5W 100ML) 100 ML ASDIR PRN IV Nitroglycerin/Dextrose (NITROGLYCERIN 50,000MCG/D5W 250ML) 250 ML ASDIR IV Norepinephrine Bitartrate (NOREPINEPHRINE 8 MG/NS 250 ML) 250 ML TITRATE IV Ondansetron HCl (ZOFRAN) 4 MG Q6H PRN PRN IV Potassium Chloride (KCL 20MEQ/SWFI 100ML) 100 ML ASDIR PRN IV Sodium Bicarbonate (SODIUM BICARBONATE) 50 MEQ ASDIR PRN IV Sodium Chloride (SODIUM CHLORIDE 0.9%) 1,000 ML .Q20H IV Sodium Chloride (SODIUM CHLORIDE 0.9%) 250 ML Q24H IV Vancomycin HCl (VANCOMYCIN HCL) 1,000 MG Q12H IV (CAN) Sodium Chloride (SODIUM CHLORIDE 0.9%) 250 MLAlbuterol Sulfate (VENTOLIN HFA) 0 .STK-MED ONE INH (DC) Hydrocortisone Sodium Succinate (Solu-CORTEF) 100 MG ONCE ONE IV (DC) Protamine Sulfate (PROTAMINE SULFATE) 0 .STK-MED ONE IV (DC) Glycopyrrolate (GLYCOPYRROLATE) 0 .STK-MED ONE .ROUTE (DC) Neostigmine Methylsulfate (PROSTIGMIN) 0 .STK-MED ONE .ROUTE (DC) Protamine Sulfate (PROTAMINE SULFATE) 0 .STK-MED ONE IV (DC) Parenteral Electrolytes (PLASMA-LYTE A pH 7.4) 1,000 ML .STK-MED ONE IV (DC) Fentanyl Citrate (SUBLIMAZE) 0 .STK-MED ONE .ROUTE (DC) Papaverine HCl (PAPAVERINE HCL) 0 .STK-MED ONE IV (DC) Albumin Human (ALBUMINAR-25%) 100 ML .STK-MED ONE IV (DC) Fentanyl Citrate (SUBLIMAZE) 0 .STK-MED ONE IV (DC) Clindamycin Phosphate (CLEOCIN 900 MG/NS 50 ML) 50 ML .STK-MED ONE IV (DC) Sodium Chloride (SODIUM CHLORIDE 0.9%) 250 ML .STK-MED ONE IV (DC) Vancomycin HCl (Vancomycin 1,250 mg Inj (B2)) 0 .STK-MED ONE IV (DC) Insulin Human Lispro (HUMALOG) 0 AC HS SUBQ (DC) Rocuronium [place] (ZEMURON) 0 .STK-MED ONE IV (DC) Fentanyl Citrate (SUBLIMAZE) 0 .STK-MED ONE .ROUTE (DC) Dexamethasone Sodium Phosphate (DECADRON) 0 .STK-MED ONE .ROUTE (DC) Heparin Sodium (HEPARIN SODIUM) 0 .STK-MED ONE .ROUTE (DC) Lidocaine HCl (XYLOCAINE) 0 .STK-MED ONE .ROUTE (DC) Ondansetron HCl (ZOFRAN) 0 .STK-MED ONE .ROUTE (DC) Rocuronium [place] (ZEMURON) 0 .STK-MED ONE IV (DC) Fentanyl Citrate (SUBLIMAZE) 0 .STK-MED ONE .ROUTE (DC) Propofol (DIPRIVAN 200MG/20ML INJECTION) 20 ML .STK-MED ONE IV (DC) Albumin Human (ALBUMINAR-25%) 50 ML .STK-MED ONE IV (DC) Heparin Sodium (HEPARIN SODIUM) 0 .STK-MED ONE .ROUTE (DC) Mannitol (Mannitol 20%) 500 ML .STK-MED ONE IV (DC) Sodium Chloride (SODIUM CHLORIDE 0.9%) 100 ML .STK-MED ONE IV (DC) Lidocaine HCl (XYLOCAINE IV) 0 .STK-MED ONE IV (DC) Magnesium Sulfate (MAGNESIUM SULFATE) 0 .STK-MED ONE IV (DC) Phenylephrine HCl (JESUS-SYNEPHRINE 10MG/ML AMP) 0 .STK-MED ONE .ROUTE (DC) Sodium Bicarbonate (SODIUM BICARBONATE) 0 .STK-MED ONE IV (DC) Dexamethasone Sodium Phosphate (DECADRON) 0 .STK-MED ONE .ROUTE (DC) Etomidate (AMIDATE) 0 .STK-MED ONE IV (DC) Lidocaine HCl (XYLOCAINE) 0 .STK-MED ONE .ROUTE (DC) Ondansetron HCl (ZOFRAN) 0 .STK-MED ONE .ROUTE (DC) Rocuronium [place] (ZEMURON) 0 .STK-MED ONE IV (DC) Succinylcholine Chloride (QUELICIN FLIPTOP) 0 .STK-MED ONE IV (DC) Epinephrine HCl (EPINEPHrine 4 mg/D5W 250 mL) 250 ML .STK-MED ONE IV (DC) Heparin Sodium (HEPARIN SODIUM) 0 .STK-MED ONE .ROUTE (DC) Insulin Human Regular (HumuLIN R 100 UNITS/NS 100ML) 100 ML .STK-MED ONE IV (DC) Norepinephrine Bitartrate (NOREPINEPHRINE 8 MG/NS 250 ML) 250 ML .STK-MED ONE IV (DC) Aminocaproic Acid (AMICAR) 0 .STK-MED ONE IV (DC) Calcium Chloride (CALCIUM CHLORIDE) 0 .STK-MED ONE IV (DC) Magnesium Sulfate (MAGNESIUM SULFATE) 0 .STK-MED ONE .ROUTE (DC) Nitroglycerin/Dextrose (NITROGLYCERIN 50,000MCG/D5W 250ML) 250 ML .STK-MED ONE IV (DC) Protamine Sulfate (PROTAMINE SULFATE) 0 .STK-MED ONE IV (DC) Ropivacaine (NAROPIN 0.5% 150 MG/30mL) 0 .STK-MED ONE .ROUTE (DC) Sodium Chloride (SODIUM CHLORIDE 0.9%) 100 ML .STK-MED ONE IV (DC) Morphine Sulfate (morphine SULFATE) 1 MG ONCE ONE IV (DC) Clindamycin Phosphate (CLEOCIN 900 MG/NS 50 ML) 50 ML PREOP ONCALL IV (DC) Vancomycin HCl (Vancomycin 1,250 mg Inj (B2)) 1,250 MG PREOP ONCALL IV (DC) Sodium Chloride (SODIUM CHLORIDE 0.9%) 250 MLVerapamil HCl (ISOPTIN) 16.6 MG .Q24H ONE IV (DC) Heparin Sodium (Porcine) (HEPARIN SODIUM) 1,660 UNIT Sodium Bicarbonate (SODIUM BICARBONATE) 0.7 ML Nitroglycerin/Dextrose (NITROGLYCERIN 50MG/D5W 250ML) 8.3 MG Lactated Ringer's (LACTATED RINGERS) 949.5 MLBudesonide (PULMICORT RESPULES) 0.5 MG RTBID INH (DC) Formoterol Fumarate (PERFOROMIST) 20 MCG RTBID NEB (DC) Doxycycline Hyclate (VIBRAMYCIN) 100 MG Q12HR IV (DC) Sodium Chloride (SODIUM CHLORIDE 0.9% 100 ML) 100 MLGuaifenesin (MUCINEX 600MG TAB SA) 600 MG Q12HR PO (DC) Ipratropium [place] (ATROVENT) 500 MCG RTQ6H INH (DC) Mupirocin (BACTROBAN 2% 22 GM OINTMENT) 1 APPLIC BID NASAL (DC) Methylprednisolone Sodium Succinate (Solu-Medrol 40 MG Vial) 40 MG Q8H IV (DC) Sterile Water (WATER FOR INJECTION) 1 ML ASDIR PRN IV (DC) Acetaminophen (TYLENOL EXTRA STRENGTH) 1,000 MG PREOP ONCALL PO (DC) Gabapentin (NEURONTIN) 200 MG PREOP ONCALL PO (DC) Heparin Sodium (HEPARIN 5000 UNITS/ML) 0 ASDIR PRN IV (DC) Heparin Sodium (Porcine) (HEPARIN 25,000 UNITS/ 1/2NS 500ML) 500 ML ASDIR IV (DC) Nitroglycerin/Dextrose (NITROGLYCERIN 50,000MCG/D5W 250ML) 250 ML ASDIR IV (DC) Physical ExamGeneral appearance: respiratory supportNeck: full range of motion, non-tender, normal thyroid, supple/no meningismus, no bruit/NL carotids, no JVD, no lymphadenopathy, no masses or swellingCardiovascular: CV assessment: regular rate and rhythmRespiratory: decreased breath sounds, clear to auscultationAbdomen: non-tender, normal bowel sounds, no distention, no guarding, no mass/organomegaly, no pulsatile mass, no reboundUpper extremity: UE assessment: normal capillary refill, no edemaLower extremity: LE assessment: normal capillary refill, no edema ResultsFindings/Data:Laboratory Tests 03/05 03/05 03/05 03/05 0635 0532 0442 0209 Blood Gas Puncture Site Art Line Art Line Art Line Art Line O2 Saturation (90 - 100 %) 97.4 96.9 96.2 96.5 ABG pH (7.35 - 7.45) 7.322 L 7.259 *L 7.218 *L 7.312 L ABG pCO2 (35.0 - 45 mmHg) 58.5 *H 66.1 *H 77.2 *H 65.1 *H ABG pO2 (80 - 100.0 mmHg) 105.9 H 106.5 H 103.7 H 97.2 ABG PO2/FiO2 Ratio (mm/Hg) 302.57 266.25 ABG HCO3 (22.0 - 26.0 MMOL/L) 30.3 *H 29.6 *H 31.5 *H 33.0 *H ABG Total CO2 32.1 31.7 33.8 35.0 ABG Base Excess (-4.0 - 4.0 MMOL/L) 4.2 H 2.5 3.7 6.7 H ABG Hematocrit (37.5 - 50.7 %) 21 L 22 L 24 L 21 L ABG Hemoglobin (12.5 - 16.9 G/DL) 7.1 L 7.4 L 8.0 L 7.2 L Sodium (134 - 147 mmol/L) 147 145 149 H 147 Potassium (3.4 - 5.0 mmol/L) 4.6 4.7 4.7 4.4 Chloride (100 - 108 mmol/L) 108 109 H 108 108 Ionized Calcium (1.12 - 1.32 MMOL/L) 1.22 1.23 1.30 1.33 H Lactic Acid (0.9 - 1.7 mmol/l) 1.0 1.7 2.0 H 1.8 H O2 Delivery Device BiPAP BiPAP 4L HFNC Vent Mode 08/12 12 4L HFNC FiO2 (%) 35 40 03/04 1907Blood Gas Puncture Site Art Line Art Line Art Line Art Line O2 Saturation (90 - 100 %) 93.3 95.7 99.9 97.9 ABG pH (7.35 - 7.45) 7.328 L 7.337 L 7.342 L 7.204 *L ABG pCO2 (35.0 - 45 mmHg) 53.9 *H 49.8 H 50.2 *H 50.2 *H ABG pO2 (80 - 100.0 mmHg) 72.6 L 80.9 382.6 *H 125.4 H ABG PO2/FiO2 Ratio (mm/Hg) 202.25 382.60 313.50 ABG HCO3 (22.0 - 26.0 MMOL/L) 28.5 *H 27.1 H 27.2 H 19.8 L ABG Total CO2 30.2 28.7 28.7 21.3 ABG Base Excess (-4.0 - 4.0 2.4 1.0 1.5 -8.2 LMMOL/L) ABG Hematocrit (37.5 - 50.7 %) 22 L 23 L 23 L 23 L ABG Hemoglobin (12.5 - 16.9 G/DL) 7.4 L 7.9 L 7.7 L 7.8 L Sodium (134 - 147 mmol/L) 148 H 148 H 146 140 Potassium (3.4 - 5.0 mmol/L) 3.9 4.0 3.7 3.5 Chloride (100 - 108 mmol/L) 108 108 105 108 Ionized Calcium (1.12 - 1.32 1.10 L 1.10 L 1.21MMOL/L) Lactic Acid (0.9 - 1.7 mmol/l) 4.3 *H 6.5 *H 5.0 *H 3.9 H Temperature (F) 97.7 96.1 O2 Delivery Device 4L HFNC Adult Vent Adult Vent Vent Mode SPONT AC Vent Rate (/MIN) 18 FiO2 (%) 40 100 40 Tidal Volume (ml) 480 PEEP (cmH2O) 5 5 Pressure Support (cmH2O) 20 03/04 03/04 03/04 03/04 1758 1733 1636 1609Blood Gas Puncture Site Art Line O2 Saturation (90 - 100 %) 99.4 100.0 100.0 100.0 ABG pH (7.35 - 7.45) 7.280 *L 7.323 L 7.383 7.382 ABG pCO2 (35.0 - 45 mmHg) 43.0 41.3 39.4 40.6 ABG pO2 (80 - 100.0 mmHg) 175.5 H 402.1 *H 405.8 *H 476.4 *H ABG PO2/FiO2 Ratio (mm/Hg) 351.00 ABG HCO3 (22.0 - 26.0 MMOL/L) 20.2 L 21.4 L 23.5 24.1 ABG Total CO2 21.5 22.7 24.7 25.3 ABG Base Excess (-4.0 - 4.0 MMOL/L) -6.5 L -4.4 L -1.5 -0.9 ABG Hematocrit (37.5 - 50.7 %) 20 L 25 L 18 L 20 L ABG Hemoglobin (12.5 - 16.9 G/DL) 6.9 L 8.3 L 6.2 L 6.7 L Shayla Test N/A Sodium (134 - 147 mmol/L) 141 143 139 140 Potassium (3.4 - 5.0 mmol/L) 3.3 L 3.3 L 4.6 4.4 Chloride (100 - 108 mmol/L) 107 109 H 106 108 Ionized Calcium (1.12 - 1.32 MMOL/L) 1.21 1.22 1.08 L 1.07 L Lactic Acid (0.9 - 1.7 mmol/l) 3.2 H 2.0 H 1.7 O2 Delivery Device Adult Vent Vent Mode AC Vent Rate (/MIN) 18 FiO2 (%) 50 Tidal Volume (ml) 480 PEEP (cmH2O) 5 03/04 03/04 03/04 1537 1506 1228 Blood Gas O2 Saturation (90 - 100 %) 100.0 100.0 100.0 ABG pH (7.35 - 7.45) 7.367 7.221 *L 7.390 ABG pCO2 (35.0 - 45 mmHg) 43.1 56.0 *H 36.7 ABG pO2 (80 - 100.0 mmHg) 489.2 *H 497.4 *H 449.5 *H ABG HCO3 (22.0 - 26.0 MMOL/L) 24.7 23.0 22.2 ABG Total CO2 26.1 24.7 23.3 ABG Base Excess (-4.0 - 4.0 MMOL/L) -0.6 -4.8 L -2.4 ABG Hematocrit (37.5 - 50.7 %) 20 L 26 L 29 L ABG Hemoglobin (12.5 - 16.9 G/DL) 6.6 L 8.8 L 9.8 L Sodium (134 - 147 mmol/L) 140 141 140 Potassium (3.4 - 5.0 mmol/L) 4.5 3.4 4.4 Chloride (100 - 108 mmol/L) 106 109 H 107 Ionized Calcium (1.12 - 1.32 MMOL/L) 1.02 L 1.15 1.15 Lactic Acid (0.9 - 1.7 mmol/l) 0.6 L < 0.3 L 0.7 L Laboratory Tests 03/05 03/05 03/05 03/05 03/05 0635 0532 0442 0209 0201 Chemistry POC Creatinine (0.8 - 1.3 mg/dL) 1.8 H 1.9 H 2.1 H 2.1 H POC Glucose (mg/dL) (70 - 110 MG/DL) 126 H 146 H 126 H 121 H Lactic Acid (0.4 - 1.9 mmol/L) 2.4 H 03/05 03/04 03/04 03/04 0201 2348 1500 2132 Chemistry Sodium (134 - 147 mEq/L) 150 H Potassium (3.4 - 5.0 mEq/L) 4.4 Chloride (100 - 108 mEq/L) 113 H Carbon Dioxide (21 - 33 mEq/l) 30 Anion Gap (0 - 20) 12 BUN (7 - 18 mg/dL) 30 H Creatinine (0.6 - 1.3 mg/dL) 1.9 H POC Creatinine (0.8 - 1.3 mg/dL) 1.6 H Glomerular Filtr Rate (70 - 80) 37.3 L Glucose (70 - 110 mg/dL) 132 H POC Glucose (mg/dL) (70 - 110 MG/DL) 178 H Lactic Acid (0.4 - 1.9 mmol/l) 4.2 *H 8.6 *H Calcium (8.0 - 10.5 mg/dL) 9.3 Magnesium (1.80 - 2.40 mg/dL) 2.66 H Total Bilirubin (0.0 - 1.0 mg/dL) 0.40 Direct Bilirubin (0.0 - 0.30 MG/DL) 0.20 Indirect Bilirubin (MG/DL) 0.20 AST (15 - 37 IUnit/L) 40 H ALT (30 - 65 IUnit/L) 13 L Total Alk Phosphatase (20 - 125 IUnit/L) 26 Total Protein (6.4 - 8.2 g/dL) 5.1 L Albumin (3.4 - 5.0 g/dL) 3.40 03/042 6 1941 1907 1758Chemistry Sodium (134 - 147 mEq/L) 151 H Potassium (3.4 - 5.0 mEq/L) 4.1 Chloride (100 - 108 mEq/L) 110 H Carbon Dioxide (21 - 33 mEq/l) 27 Anion Gap (0 - 20) 18 BUN (7 - 18 mg/dL) 29 H Creatinine (0.6 - 1.3 mg/dL) 1.8 H POC Creatinine (0.8 - 1.3 mg/dL) 1.8 H 0.9 1.2 1.5 H Glomerular Filtr Rate (70 - 80) 39.7 L Glucose (70 - 110 mg/dL) 212 H POC Glucose (mg/dL) (70 - 110 MG/DL) 214 H 219 H 223 H 230 H Calcium (8.0 - 10.5 mg/dL) 7.6 L Ionized Calcium [place] (1.09 - 1.30 0.95 LMMOL/L) Total Bilirubin (0.0 - 1.0 mg/dL) 0.70 Direct Bilirubin (0.0 - 0.30 MG/DL) 0.40 H Indirect Bilirubin (MG/DL) 0.30 AST (15 - 37 IUnit/L) 40 H ALT (30 - 65 IUnit/L) 11 L Total Alk Phosphatase (20 - 125 28IUnit/L) Total Protein (6.4 - 8.2 g/dL) 4.8 L Albumin (3.4 - 5.0 g/dL) 2.80 L 03/04 03/04 03/04 03/04 03/04 1743 1733 1636 1609 1537Chemistry Sodium (134 - 147 mEq/L) 143 Potassium (3.4 - 5.0 mEq/L) 3.3 L Chloride (100 - 108 mEq/L) 110 H Carbon Dioxide (21 - 33 mEq/l) 22 Anion Gap (0 - 20) 14 BUN (7 - 18 mg/dL) 37 H Creatinine (0.6 - 1.3 mg/dL) 1.7 H POC Creatinine (0.8 - 1.3 mg/dL) 1.4 H 1.4 H 1.4 H 1.3 Glomerular Filtr Rate (70 - 80) 42.6 L Glucose (70 - 110 mg/dL) 225 H POC Glucose (mg/dL) (70 - 110 MG/DL) 196 H 232 H 245 H 241 H Calcium (8.0 - 10.5 mg/dL) 8.3 Magnesium (1.80 - 2.40 mg/dL) 2.98 H 03/04 03/04 03/04 1506 1228 0726 Chemistry POC Creatinine (0.8 - 1.3 mg/dL) 1.2 1.3 POC Glucose (mg/dL) (70 - 110 MG/DL) 271 H 399 H Troponin I High Sens (0 - 54 ng/L) 617 *H Laboratory Tests 03/04 03/04 03/04 03/04 1743 1731 1637 1611 Coagulation INR (0.8 - 1.2) 1.5 H PTT (Jarrett) (25.0 - 39.5 Seconds) 30.8 PT Patient/Control Mix (9.3 - 12.9 SECONDS) 16.4 H Activated Coag Time (74 - 137 SEC) 149 H 630 H 756 H 03/04 03/04 03/04 1539 1508 1230 Coagulation Activated Coag Time (74 - 137 SEC) 967 H 834 H 179 H Laboratory Tests 03/05 03/04 03/04 0201 2132 1743 Hematology WBC (4.5 - 11.0 x10 3/uL) 3.9 L 5.2 9.1 RBC (4.00 - 5.60 x10 6/uL) 2.51 L 2.80 L 2.46 L Hgb (12.5 - 16.9 g/dL) 7.7 L 8.6 L 7.5 L Hct (37.5 - 50.7 %) 22.9 L 25.4 L 23.3 L MCV (81.0 - 99.0 fL) 91.2 90.7 94.7 MCH (27.0 - 33.0 pg) 30.7 30.7 30.5 MCHC (33.0 - 37.0 g/dL) 33.6 33.9 32.2 L RDW (11.5 - 14.5 %) 16.2 H 15.6 H 14.4 Plt Count (150 - 400 x10 3/uL) 88 L 92 L 109 L MPV (7.0 - 9.0 fL) 11.0 H 10.8 H 10.8 H Neut % (Auto) (56.0 - 77.0 %) 86.9 H 86.5 H 84.1 H Lymph % (Auto) (14.0 - 32.0 %) 3.1 L 3.3 L 6.5 L [place] % (Auto) (4.8 - 9.0 %) 9.5 H 8.7 8.1 Eos % (Auto) (0.3 - 3.7 %) 0.0 L 0.0 L 0.2 L Baso % (Auto) (0.0 - 2.0 %) 0.0 0.2 0.1 Neut # (Auto) (2.0 - 7.6 x10 3/uL) 3.39 4.49 7.61 H Lymph # (Auto) (1.0 - 3.8 x10 3/uL) 0.12 L 0.17 L 0.59 L [place] # (Auto) (0.1 - 0.8 x10 3/uL) 0.37 0.45 0.73 Eos # (Auto) (0.0 - 0.2 x10 3/uL) 0.00 0.00 0.02 Baso # (Auto) (0.0 - 0.2 x10 3/uL) 0.00 0.01 0.01 Abs Immat Gran (auto) (0.00 - 0.03 x10 3/uL) 0.02 0.07 H 0.09 H Add Manual Diff NO NO NO Immature Gran % (0.0 - 2.0 %) 0.5 1.3 1.0 Nucleated RBC % (0 - 0 %) 0.0 0.0 0.0 Nucleated RBCs # (Man) (0.0 - 0.1 x10 3/uL) 0.00 0.00 0.00 Platelet Estimate (ADEQUATE THOUSAND) 140-175 Plt Morphology Comment NORMAL Laboratory Tests 03/05 03/04 0201 1743 Chemistry Magnesium (1.80 - 2.40 mg/dL) 2.66 H 2.98 H Radiology data:Recent Impressions:RADIOLOGY - XR CHEST 1 V 03/04 0651 Report Impression - Status: SIGNED Entered: 03/04/2023 0807 IMPRESSION: Mild bibasilar opacities which may represent atelectasis or infiltrate. Impression By: [email or web address] - Bon Spangler M.D.ULTRASOUND - DUP VEIN SCOTTY 03/04 0713 Report Impression - Status: SIGNED Entered: 03/04/2023 0805 IMPRESSION: No evidence of deep vein thrombosis. Impression By: [email or web address] - Ezekiel Esteves M.D.RADIOLOGY - XR CHEST 1 V 03/042 Report Impression - Status: SIGNED Entered: 03/04/20231936 IMPRESSION: 1. Lines and tubes are in satisfactory position. 2. St. Mild bibasilar atelectasis. ernal wires are seen Impression By: Jose Juan Schuler M.D.CAT SCAN - CT HEAD/BRAIN W/O CONT 03/04 1933 Report Impression - Status: SIGNED Entered: 03/04/20231939 IMPRESSION: 1. No acute intracranial abnormality. 2. Chronic ischemic changes are present as described. 3. There is mild acute and chronic paranasal sinus disease. ASSESSMENT: ASPECTS ([place] Stroke Program Early CT Score) is 10. Impression By: Jose Juan Schuler M.D. Diagnosis, Assessment PlanConsultants: anesthesiology, cardiology, cardiovascular surgery, critical/osteopathy doctor, hospitalist Free Text DxA P NotesFree Text DxA P Notes:1- Severe COPD with exacerbation: As per Pulm2- Recent pulmonary embolism on Eliquis3- NSTEMI/Multivessel coronary artery disease: S/P CBBG, extubated and doing fair5- Hypertension6- History of tobacco use at 089 RPT #:[id number] OF REPORTPRProgress [id number] able for patient [id number] [facility] 2023-03-05 02:33:00 [id number] [place] [address] PATIENT NAME: TEVIN NYE ADMIT DATE: 03/03/23ACCOUNT NO: [id number] ROOM NO: [facility] AGE: 72 REPORT TYPE: eELECTROCARDIOGRAM REPORT SEX: M ADMITTING PHYSICIAN:Luci Villeda MD ATTENDING PHYSICIAN:Luci Villeda MD Order:[id number] Reason : Cardiac Surgery Post Op Test Date/Time Stamp:FriMar 05 2023 02:33:51Blood Pressure : / mmHGVent. Rate : 086 BPM Atrial Rate : 086 BPM P-R Int : 144 ms QRS Dur : 090 ms QT Int : 356 ms P-R-T Axes : 056 -50 067 degrees QTc Int : 426 ms Normal sinus rhythmLeft axis deviationLow voltage QRSCannot rule out Anterior infarct (cited on or before 04-MAR-2023)Abnormal ECGWhen compared with ECG of 04-MAR-2023 18:25,Significant changes have occurredConfirmed by MD SYLVESTER GERARD ([id number]) on 03/07/2023 1:32:56 PM Referred By: Self Referred Confirmed by:ANUJ SYLVESTER MD at 1332 PATIENT NAME: TEVIN NYE .[id number] AVAvailable for patient [id number]:33:20 [facility] 2023-03-04 19:40:00 [id number] +[id number]/[id number]:40:00 [facility] Consultation NoteREPORT#:[id number] REPORT STATUS: SignedDATE:03/04/23 TIME: 1939 PATIENT: TEVIN NYE UNIT #: [id number]#: [id number] ROOM/BED: [facility]-1DOB: [birth year] AGE: 72 SEX: M ATTEND: Luci Villeda MDAMARYCHUY AUTHOR: Faraz Maldonado MD * ALL edits or amendments must be made on the electronic/computer document * See AddendumHistory of Present Illness HPIRequesting clinician: Dr. Farrell for consult:svetlana stroke complaint:encephalopathy, non responsivePCP:PCP: No Primary or Family Physician HPI:Patient is a 72 yo male with HTN, DLD, DM, former smoker, prostate cancer s/p radiation, COPD, PE in November on who presented to an OSH with dyspnea on exertion and NSTEMI. Patient was vound to have multivessel CAD. Patient was transferred to [facility] for CABG evaluation. Preoperatively the patient was found to have severe L ICA stenosis with PSV of 421 cm/s. Patient underwent 4vCABG today with ligation of the left atrial appendage. Post operatively patient was slow to wake from anesthesia and was given narcan at which point his pupils became fixed and dilated. Code stroke was called and patient underwent CTH. Neurology was consulted for evaluation. No seizure like activity was noted. Patient has not been responsive post procedure. History - Adult longitudinalPast medical history:Reports: COPD, Diabetes mellitus, Hypertension, BPH, Dyslipidemia. Past surgical history:Reports: Knee procedure, Lung surgery (collapsed lung). Additional family history:UTOAlcohol use: Denies EtOH useDrug use: Denies recreational drugsSmoking status for patients 13 years old or older: Former SmokerPacks per day: 1Years smoked: 20Pack years: 20Allergies:Coded Allergies:Penicillins (USE COMMENT BUTTON 03/03/23) PT STATES THAT HE WAS JUST TOLD THAT HE'S ALLERGIC TO PENICILLIN AND ITS NOT GONNA WORK FOR HIM Review of SystemsUnable to obtain due to:intubated, comatose Objective GeneralVS:Last Documented: Result Date Time FiO2 40 03/04 1801 Pulse Ox 100 03/04 1801 O2 Delivery Ventilator 03/04 1801 Pulse 82 03/04 1750 B/P 89/37 03/04 1750 Resp 18 03/04 1750 B/P Mean 81 03/04 1130 O2 Flow Rate 4 03/04 0836 Temp 36.3 03/04 0045 PATIENT WEIGHT: Weight (lb): 182Weight (oz): 15.74Weight (kg): 83.000 MedicationsCurrent Home MedicationsOXYBUTYNIN (DITROPAN) 5 MG PO BID TAMSULOSIN ER (FLOMAX) 0.8 MG PO DAILY FLUoxetine (PROzac) 10 MG PO QAM LATANOPROST (XALATAN 0.005% OPHTH SOLN) 1 DROP EACH EYE BEDTIME LISINOPRIL (ZESTRIL) 20 MG PO DAILY METOPROLOL TARTRATE (LOPRESSOR) 25 MG PO BID INSULIN LISPRO (HumaLOG KWIKPEN (3mL)) 6 INSULIN LISPRO (HumaLOG) 50 CALCIUM CARBONATE/VIT D3 (CALCIUM CARB/VIT D3 500 MG/200 UNITS) 2 TAB PO DAILY CYANOCOBALAMIN (VITAMIN B-12) 100 MCG PO DAILY HYDROCHLOROTHIAZIDE (HYDRODIURIL) 25 MG PO DAILY APIXABAN (ELIQUIS) 5 MG PO BID ASPIRIN 81 MG PO DAILY ATORVASTATIN (LIPITOR) 5 MG PO DAILY Active Meds + DC'd Last 24 HrsIpratropium [place] (ATROVENT) 500 MCG RTQ2H PRN PRN INH Cyanocobalamin (Vitamin B-12 500 mcg tab) 500 MCG DAILY PO Ferrous Sulfate (FERROUS SULFATE) 325 MG DAILY PO Bisacodyl (DULCOLAX) 10 MG ONCE PRN RECTAL Magnesium Hydroxide (MILK OF MAGNESIA) 30 ML ONCE PRN PO Atorvastatin Calcium (LIPITOR) 40 MG 2100 PO Clopidogrel Bisulfate (Plavix) 75 MG DAILY PO Polyethylene Glycol (MIRALAX) 17 GM DAILY PO Pantoprazole (PROTONIX) 40 MG DAILY@0600 PO Vancomycin HCl (VANCOMYCIN HCL) 1,000 MG ONCE ONE IV Sodium Chloride (SODIUM CHLORIDE 0.9%) 250 MLAspirin (ASPIRIN) 81 MG DAILY PO Hydrocortisone Sodium Succinate (Solu-CORTEF) 25 MG Q8HR IV (CAN) Amiodarone HCl (CORDARONE) 200 MG TID PO Docusate Sodium (COLACE) 100 MG BID PO Gabapentin (NEURONTIN) 200 MG BID PO Metoprolol Tartrate (LOPRESSOR) 12.5 MG Q12HR PO Sennosides (Senna Lax 8.6 MG TABLET) 17.2 MG BEDTIME PO Ipratropium [place] (ATROVENT) 500 MCG RTQ4H INH Sugammadex Sodium (BRIDION) 0 .STK-MED ONE IV (DC) Sodium Bicarbonate (SODIUM BICARBONATE) 0 .STK-MED ONE IV (DC) Naloxone HCl (NARCAN) 0.4 MG ONCE ONE IV (DC) Naloxone HCl (NARCAN) 0 .STK-MED ONE .ROUTE (DC) Perflutren Protein Type A Microsphe (OPTISON 3ML VIAL) 0 .STK-MED ONE IV (DC) Acetaminophen (TYLENOL) 650 MG Q4H PRN PRN PO Acetaminophen (TYLENOL) 650 MG Q4H PRN PRN RECTAL Albumin Human (ALBUMINAR 25%) 25 GM ASDIR PRN IV Calcium Chloride (CALCIUM CHLORIDE) 1 GM ASDIR PRN IV Dextrose/Water (DEXTROSE 10% IN WATER) 125 ML ASDIR PRN IV (CKD) Dextrose/Water (DEXTROSE 10% IN WATER) 250 ML ASDIR PRN IV (CKD) Epinephrine (ADRENALIN CHLORIDE) 4 MG ASDIR IV Dextrose/Water (DEXTROSE 5% WATER) 246 MLGlucagon (GLUCAGON) 1 MG ASDIR PRN IM Insulin Human Regular (HumuLIN R) 100 UNIT ASDIR IV (CKD) Sodium Chloride (SODIUM CHLORIDE 0.9%) 99 MLMagnesium Sulfate (MAGNESIUM SULFATE 4GM/SWFI 100ML) 100 ML ASDIR PRN IV Magnesium Sulfate (MAGNESIUM SULFATE 2GM/SWFI 50ML) 50 ML ASDIR PRN IV Magnesium Sulfate/Dextrose (MAGNESIUM SULFATE 1GM/D5W 100ML) 100 ML ASDIR PRN IV Nitroglycerin/Dextrose (NITROGLYCERIN 50,000MCG/D5W 250ML) 250 ML ASDIR IV Norepinephrine Bitartrate (NOREPINEPHRINE 8 MG/NS 250 ML) 250 ML TITRATE IV Ondansetron HCl (ZOFRAN) 4 MG Q6H PRN PRN IV Potassium Chloride (KCL 20MEQ/SWFI 100ML) 100 ML ASDIR PRN IV Sodium Bicarbonate (SODIUM BICARBONATE) 50 MEQ ASDIR PRN IV Sodium Chloride (SODIUM CHLORIDE 0.9%) 1,000 ML .Q20H IV Sodium Chloride (SODIUM CHLORIDE 0.9%) 250 ML Q24H IV Vancomycin HCl (VANCOMYCIN HCL) 1,000 MG Q12H IV (CAN) Sodium Chloride (SODIUM CHLORIDE 0.9%) 250 MLAlbuterol Sulfate (VENTOLIN HFA) 0 .STK-MED ONE INH (DC) Hydrocortisone Sodium Succinate (Solu-CORTEF) 100 MG ONCE ONE IV (DC) Protamine Sulfate (PROTAMINE SULFATE) 0 .STK-MED ONE IV (DC) Glycopyrrolate (GLYCOPYRROLATE) 0 .STK-MED ONE .ROUTE (DC) Neostigmine Methylsulfate (PROSTIGMIN) 0 .STK-MED ONE .ROUTE (DC) Protamine Sulfate (PROTAMINE SULFATE) 0 .STK-MED ONE IV (DC) Parenteral Electrolytes (PLASMA-LYTE A pH 7.4) 1,000 ML .STK-MED ONE IV (DC) Fentanyl Citrate (SUBLIMAZE) 0 .STK-MED ONE .ROUTE (DC) Papaverine HCl (PAPAVERINE HCL) 0 .STK-MED ONE IV (DC) Albumin Human (ALBUMINAR-25%) 100 ML .STK-MED ONE IV (DC) Fentanyl Citrate (SUBLIMAZE) 0 .STK-MED ONE IV (DC) Clindamycin Phosphate (CLEOCIN 900 MG/NS 50 ML) 50 ML .STK-MED ONE IV (DC) Sodium Chloride (SODIUM CHLORIDE 0.9%) 250 ML .STK-MED ONE IV (DC) Vancomycin HCl (Vancomycin 1,250 mg Inj (B2)) 0 .STK-MED ONE IV (DC) Insulin Human Lispro (HUMALOG) 0 AC HS SUBQ (DC) Rocuronium [place] (ZEMURON) 0 .STK-MED ONE IV (DC) Fentanyl Citrate (SUBLIMAZE) 0 .STK-MED ONE .ROUTE (DC) Dexamethasone Sodium Phosphate (DECADRON) 0 .STK-MED ONE .ROUTE (DC) Heparin Sodium (HEPARIN SODIUM) 0 .STK-MED ONE .ROUTE (DC) Lidocaine HCl (XYLOCAINE) 0 .STK-MED ONE .ROUTE (DC) Ondansetron HCl (ZOFRAN) 0 .STK-MED ONE .ROUTE (DC) Rocuronium [place] (ZEMURON) 0 .STK-MED ONE IV (DC) Fentanyl Citrate (SUBLIMAZE) 0 .STK-MED ONE .ROUTE (DC) Propofol (DIPRIVAN 200MG/20ML INJECTION) 20 ML .STK-MED ONE IV (DC) Albumin Human (ALBUMINAR-25%) 50 ML .STK-MED ONE IV (DC) Heparin Sodium (HEPARIN SODIUM) 0 .STK-MED ONE .ROUTE (DC) Mannitol (Mannitol 20%) 500 ML .STK-MED ONE IV (DC) Sodium Chloride (SODIUM CHLORIDE 0.9%) 100 ML .STK-MED ONE IV (DC) Lidocaine HCl (XYLOCAINE IV) 0 .STK-MED ONE IV (DC) Magnesium Sulfate (MAGNESIUM SULFATE) 0 .STK-MED ONE IV (DC) Phenylephrine HCl (JESUS-SYNEPHRINE 10MG/ML AMP) 0 .STK-MED ONE .ROUTE (DC) Sodium Bicarbonate (SODIUM BICARBONATE) 0 .STK-MED ONE IV (DC) Dexamethasone Sodium Phosphate (DECADRON) 0 .STK-MED ONE .ROUTE (DC) Etomidate (AMIDATE) 0 .STK-MED ONE IV (DC) Lidocaine HCl (XYLOCAINE) 0 .STK-MED ONE .ROUTE (DC) Ondansetron HCl (ZOFRAN) 0 .STK-MED ONE .ROUTE (DC) Rocuronium [place] (ZEMURON) 0 .STK-MED ONE IV (DC) Succinylcholine Chloride (QUELICIN FLIPTOP) 0 .STK-MED ONE IV (DC) Epinephrine HCl (EPINEPHrine 4 mg/D5W 250 mL) 250 ML .STK-MED ONE IV (DC) Heparin Sodium (HEPARIN SODIUM) 0 .STK-MED ONE .ROUTE (DC) Insulin Human Regular (HumuLIN R 100 UNITS/NS 100ML) 100 ML .STK-MED ONE IV (DC) Norepinephrine Bitartrate (NOREPINEPHRINE 8 MG/NS 250 ML) 250 ML .STK-MED ONE IV (DC) Aminocaproic Acid (AMICAR) 0 .STK-MED ONE IV (DC) Calcium Chloride (CALCIUM CHLORIDE) 0 .STK-MED ONE IV (DC) Magnesium Sulfate (MAGNESIUM SULFATE) 0 .STK-MED ONE .ROUTE (DC) Nitroglycerin/Dextrose (NITROGLYCERIN 50,000MCG/D5W 250ML) 250 ML .STK-MED ONE IV (DC) Protamine Sulfate (PROTAMINE SULFATE) 0 .STK-MED ONE IV (DC) Ropivacaine (NAROPIN 0.5% 150 MG/30mL) 0 .STK-MED ONE .ROUTE (DC) Sodium Chloride (SODIUM CHLORIDE 0.9%) 100 ML .STK-MED ONE IV (DC) Morphine Sulfate (morphine SULFATE) 1 MG ONCE ONE IV (DC) Clindamycin Phosphate (CLEOCIN 900 MG/NS 50 ML) 50 ML PREOP ONCALL IV (CKD) Metoprolol Tartrate (LOPRESSOR) 6.25 MG ONCE ONE PO (DC) Vancomycin HCl (Vancomycin 1,250 mg Inj (B2)) 1,250 MG PREOP ONCALL IV (CKD) Sodium Chloride (SODIUM CHLORIDE 0.9%) 250 MLVerapamil HCl (ISOPTIN) 16.6 MG .Q24H ONE IV (CKD) Heparin Sodium (Porcine) (HEPARIN SODIUM) 1,660 UNIT Sodium Bicarbonate (SODIUM BICARBONATE) 0.7 ML Nitroglycerin/Dextrose (NITROGLYCERIN 50MG/D5W 250ML) 8.3 MG Lactated Ringer's (LACTATED RINGERS) 949.5 MLIopamidol (ISOVUE-300 100ML) 100 ML .STK-MED ONE IV (DC) Budesonide (PULMICORT RESPULES) 0.5 MG RTBID INH Formoterol Fumarate (PERFOROMIST) 20 MCG RTBID NEB Doxycycline Hyclate (VIBRAMYCIN) 100 MG Q12HR IV Sodium Chloride (SODIUM CHLORIDE 0.9% 100 ML) 100 MLGuaifenesin (MUCINEX 600MG TAB SA) 600 MG Q12HR PO Ipratropium [place] (ATROVENT) 500 MCG RTQ6H INH (DC) Mupirocin (BACTROBAN 2% 22 GM OINTMENT) 1 APPLIC BID NASAL Methylprednisolone Sodium Succinate (Solu-Medrol 40 MG Vial) 40 MG Q8H IV Sterile Water (WATER FOR INJECTION) 1 ML ASDIR PRN IV Acetaminophen (TYLENOL EXTRA STRENGTH) 1,000 MG PREOP ONCALL PO (DC) Gabapentin (NEURONTIN) 200 MG PREOP ONCALL PO (DC) Heparin Sodium (HEPARIN 5000 UNITS/ML) 0 ASDIR PRN IV Heparin Sodium (Porcine) (HEPARIN 25,000 UNITS/ 1/2NS 500ML) 500 ML ASDIR IV (CKD) Nitroglycerin/Dextrose (NITROGLYCERIN 50,000MCG/D5W 250ML) 250 ML ASDIR IV Dietitian nutrition assessmentThe data set between the solid lines has been imported from the dietitian's assessment. BMI Calculated: 28.7Nutrition related diagnosis: Nutrition diagnosis details: Nutrition problem: Nutrition etiology: Nutrition signs and symptoms: Nutrition prescription: Dietitian name: Assessment completed: ResultsFindings/Data:Laboratory Tests 03/04 03/04 03/04 03/04 1907 1758 1733 1636Blood Gas Puncture Site Art Line Art Line O2 Saturation (90 - 100 %) 97.9 99.4 100.0 100.0 ABG pH (7.35 - 7.45) 7.204 *L 7.280 *L 7.323 L 7.383 ABG pCO2 (35.0 - 45 mmHg) 50.2 *H 43.0 41.3 39.4 ABG pO2 (80 - 100.0 mmHg) 125.4 H 175.5 H 402.1 *H 405.8 *H ABG PO2/FiO2 Ratio (mm/Hg) 313.50 351.00 ABG HCO3 (22.0 - 26.0 MMOL/L) 19.8 L 20.2 L 21.4 L 23.5 ABG Total CO2 21.3 21.5 22.7 24.7 ABG Base Excess (-4.0 - 4.0 -8.2 L -6.5 L -4.4 L -1.5MMOL/L) ABG Hematocrit (37.5 - 50.7 %) 23 L 20 L 25 L 18 L ABG Hemoglobin (12.5 - 16.9 G/DL) 7.8 L 6.9 L 8.3 L 6.2 L Shayla Test N/A Sodium (134 - 147 mmol/L) 140 141 143 139 Potassium (3.4 - 5.0 mmol/L) 3.5 3.3 L 3.3 L 4.6 Chloride (100 - 108 mmol/L) 108 107 109 H 106 Ionized Calcium (1.12 - 1.32 1.21 1.21 1.22 1.08 LMMOL/L) Lactic Acid (0.9 - 1.7 mmol/l) 3.9 H 3.2 H 2.0 H O2 Delivery Device Adult Vent Adult Vent Vent Mode AC Vent Rate (/MIN) 18 18 FiO2 (%) 40 50 Tidal Volume (ml) 480 480 PEEP (cmH2O) 5 5 03/04 03/04 03/04 03/04 1609 1537 1506 1228 Blood Gas O2 Saturation (90 - 100 %) 100.0 100.0 100.0 100.0 ABG pH (7.35 - 7.45) 7.382 7.367 7.221 *L 7.390 ABG pCO2 (35.0 - 45 mmHg) 40.6 43.1 56.0 *H 36.7 ABG pO2 (80 - 100.0 mmHg) 476.4 *H 489.2 *H 497.4 *H 449.5 *H ABG HCO3 (22.0 - 26.0 MMOL/L) 24.1 24.7 23.0 22.2 ABG Total CO2 25.3 26.1 24.7 23.3 ABG Base Excess (-4.0 - 4.0 MMOL/L) -0.9 -0.6 -4.8 L -2.4 ABG Hematocrit (37.5 - 50.7 %) 20 L 20 L 26 L 29 L ABG Hemoglobin (12.5 - 16.9 G/DL) 6.7 L 6.6 L 8.8 L 9.8 L Sodium (134 - 147 mmol/L) 140 140 141 140 Potassium (3.4 - 5.0 mmol/L) 4.4 4.5 3.4 4.4 Chloride (100 - 108 mmol/L) 108 106 109 H 107 Ionized Calcium (1.12 - 1.32 MMOL/L) 1.07 L 1.02 L 1.15 1.15 Lactic Acid (0.9 - 1.7 mmol/l) 1.7 0.6 L < 0.3 L 0.7 L Laboratory Tests 03/04 03/04 03/04 03/04 03/04 1907 1758 1743 1733 1636Chemistry Sodium (134 - 147 mEq/L) 143 Potassium (3.4 - 5.0 mEq/L) 3.3 L Chloride (100 - 108 mEq/L) 110 H Carbon Dioxide (21 - 33 mEq/l) 22 Anion Gap (0 - 20) 14 BUN (7 - 18 mg/dL) 37 H Creatinine (0.6 - 1.3 mg/dL) 1.7 H POC Creatinine (0.8 - 1.3 mg/dL) 1.2 1.5 H 1.4 H 1.4 H Glomerular Filtr Rate (70 - 80) 42.6 L Glucose (70 - 110 mg/dL) 225 H POC Glucose (mg/dL) (70 - 110 MG/DL) 223 H 230 H 196 H 232 H Calcium (8.0 - 10.5 mg/dL) 8.3 Magnesium (1.80 - 2.40 mg/dL) 2.98 H 03/04 03/04 03/04 03/04 03/04 1609 1537 1506 1228 0726 Chemistry POC Creatinine (0.8 - 1.3 mg/dL) 1.4 H 1.3 1.2 1.3 POC Glucose (mg/dL) (70 - 110 MG/DL) 245 H 241 H 271 H 399 H Troponin I High Sens (0 - 54 ng/L) 617 *H 03/04 03/03 03/03 03/03 0354 2037 7 2037Chemistry Sodium (134 - 147 mEq/L) 140 142 Potassium (3.4 - 5.0 mEq/L) 4.6 4.2 Chloride (100 - 108 mEq/L) 106 109 H Carbon Dioxide (21 - 33 mEq/l) 22 28 Anion Gap (0 - 20) 17 9 BUN (7 - 18 mg/dL) 27 H 24 H Creatinine (0.6 - 1.3 mg/dL) 1.3 1.2 Glomerular Filtr Rate (70 - 80) 58.7 L 64.7 L Glucose (70 - 110 mg/dL) 295 H 148 H Hemoglobin A1c (4.8 - 6.0 %A1C) 7.1 H Calcium (8.0 - 10.5 mg/dL) 8.4 8.5 Magnesium (1.80 - 2.40 mg/dL) 1.76 L Total Bilirubin (0.0 - 1.0 mg/dL) 0.50 0.50 AST (15 - 37 IUnit/L) 17 15 ALT (30 - 65 IUnit/L) 8 L < 7 L Total Alk Phosphatase (20 - 125 IUnit/L) 45 48 B-Natriuretic Peptide (0 - 100 PG/ML) 802.0 H Total Protein (6.4 - 8.2 g/dL) 6.0 L 6.4 Albumin (3.4 - 5.0 g/dL) 3.00 L 3.20 L Triglycerides (40 - 150 mg/dL) 170 H Cholesterol (<200 mg/dL) 100 LDL Cholesterol [place] (0 - 100 mg/dL) 53.0 HDL Cholesterol (32 - 72 mg/dL) 21.1 L Cholesterol/HDL Ratio (3.43 - 4.97 RATIO) 4.74 Laboratory Tests 03/04 03/04 03/04 03/04 1743 1731 1637 1611 Coagulation INR (0.8 - 1.2) 1.5 H PTT ([place]) (25.0 - 39.5 Seconds) 30.8 PT Patient/Control Mix (9.3 - 12.9 SECONDS) 16.4 H Activated Coag Time (74 - 137 SEC) 149 H 630 H 756 H 03/04 03/04 03/04 03/04 1539 1508 1230 0235 Coagulation PTT ([place]) (25.0 - 39.5 Seconds) 80.6 H Activated Coag Time (74 - 137 SEC) 967 H 834 H 179 H 03/03 2037 Coagulation INR (0.8 - 1.2) 1.3 H PTT ([place]) (25.0 - 39.5 Seconds) 39.0 PT Patient/Control Mix (9.3 - 12.9 SECONDS) 14.4 H Laboratory Tests 03/04 03/04 03/03 1743 0235 2037 Hematology WBC (4.5 - 11.0 x10 3/uL) 9.1 5.4 5.0 RBC (4.00 - 5.60 x10 6/uL) 2.46 L 3.36 L 3.45 L Hgb (12.5 - 16.9 g/dL) 7.5 L 10.4 L 10.6 L Hct (37.5 - 50.7 %) 23.3 L 31.4 L 32.5 L MCV (81.0 - 99.0 fL) 94.7 93.5 94.2 MCH (27.0 - 33.0 pg) 30.5 31.0 30.7 MCHC (33.0 - 37.0 g/dL) 32.2 L 33.1 32.6 L RDW (11.5 - 14.5 %) 14.4 14.4 14.3 Plt Count (150 - 400 x10 3/uL) 109 L 117 L 118 L MPV (7.0 - 9.0 fL) 10.8 H 10.6 H 11.2 H Neut % (Auto) (56.0 - 77.0 %) 84.1 H 90.9 H 84.2 H Lymph % (Auto) (14.0 - 32.0 %) 6.5 L 5.0 L 6.4 L [place] % (Auto) (4.8 - 9.0 %) 8.1 2.8 L 7.8 Eos % (Auto) (0.3 - 3.7 %) 0.2 L 0.2 L 1.0 Baso % (Auto) (0.0 - 2.0 %) 0.1 0.2 0.4 Neut # (Auto) (2.0 - 7.6 x10 3/uL) 7.61 H 4.95 4.18 Lymph # (Auto) (1.0 - 3.8 x10 3/uL) 0.59 L 0.27 L 0.32 L [place] # (Auto) (0.1 - 0.8 x10 3/uL) 0.73 0.15 0.39 Eos # (Auto) (0.0 - 0.2 x10 3/uL) 0.02 0.01 0.05 Baso # (Auto) (0.0 - 0.2 x10 3/uL) 0.01 0.01 0.02 Abs Immat Gran (auto) (0.00 - 0.03 x10 3/uL) 0.09 H 0.05 H 0.01 Add Manual Diff NO NO NO Immature Gran % (0.0 - 2.0 %) 1.0 0.9 0.2 Nucleated RBC % (0 - 0 %) 0.0 0.0 0.0 Nucleated RBCs # (Man) (0.0 - 0.1 x10 3/uL) 0.00 0.00 0.00 Laboratory Tests 03/04 0354 Urines Urine Color (YEL/STRAW) YELLOW Urine Appearance (CLEAR) CLEAR Urine pH (5.0 - 7.0) 5.0 Ur Specific [place] (1.005 - 1.030) 1.043 H Urine Protein (NEGATIVE) 3+ H Urine Glucose (UA) (NEGATIVE) NEGATIVE Urine Ketones (NEGATIVE) 1+ H Urine Blood (NEGATIVE) NEGATIVE Urine Nitrite (NEGATIVE) NEGATIVE Urine Bilirubin (NEGATIVE) NEGATIVE Urine Urobilinogen (0.2 - 1.0 mg/dL) 0.2 Ur Leukocyte Esterase (NEGATIVE) NEGATIVE Urine RBC (0 - 3 RBC/HPF) 0-3 Urine WBC (0 - 3 WBC/HPF) 0-3 Ur Squamous Epith Cells (NONE SEEN /HPF) NONE SEEN Urine Bacteria (NONE SEEN /HPF) NONE SEEN Urine Mucus (NONE SEEN /LPF) TRACE Radiology Data:Recent Impressions:CAT SCAN - CT ANGIO CHEST 03/03 2342 Report Impression - Status: SIGNED Entered: 03/04/2023 0150 IMPRESSION: 1. No evidence of acute pulmonary embolism. 2. Emphysematous changes within both lungs. 3. A 1.5 x 0.8 cm nodular opacity within the right lower lobe. This may represent neoplastic etiology or possible scarring. As per 2017 Fleischner criteria guidelines, in low and high risk patients, CT of the chest, PET/CT, or tissue sampling should be performed in 3 months. Impression By: Ramón Roman M.D.ULTRASOUND - DUP EXTRACRANIAL SCOTTY 03/03 2350 Report Impression - Status: SIGNED Entered: 03/04/2023 0218 IMPRESSION: 1. Severe stenosis of the left proximal internal carotid artery by NASCET criteria. Consider CTA of the neck for complete assessment. 2. No significant stenosis within the proximal right internal carotid artery. REFERENCES: The degree of internal carotid artery stenosis is based on criteria defined by the IAC Vascular Testing criteria. Normal is no stenosis. Mild is less than 50% stenosis. Moderate is 50-69% stenosis. Severe is greater than 69% stenosis to near occlusion. Near occlusion is a markedly narrowed lumen. Total occlusion is no detectable patent lumen. Impression By: Ramón Roman M.D.ULTRASOUND - DUP VEIN SCOTTY 03/04 0021 Report Impression - Status: SIGNED Entered: 03/04/2023 0206 IMPRESSION: Greater saphenous veins are patent. Vein mapping as described. Impression By: [email or web address] - Morales Villegas M.D.RADIOLOGY - XR CHEST 1 V 03/04 0651 Report Impression - Status: SIGNED Entered: 03/04/2023 0807 IMPRESSION: Mild bibasilar opacities which may represent atelectasis or infiltrate. Impression By: [email or web address] - Bon Spangler M.D.ULTRASOUND - DUP VEIN SCOTTY 03/04 0713 Report Impression - Status: SIGNED Entered: 03/04/2023 0805 IMPRESSION: No evidence of deep vein thrombosis. Impression By: [email or web address] - Ezekiel Esteves M.D.RADIOLOGY - XR CHEST 1 V 03/04 1822 Report Impression - Status: SIGNED Entered: 03/04/2023 193 IMPRESSION: 1. Lines and tubes are in satisfactory position. 2. St. Mild bibasilar atelectasis. ernal wires are seen Impression By: Jose Juan Schuler M.D.CAT SCAN - CT HEAD/BRAIN W/O CONT 03/04 1933 Report Impression - Status: SIGNED Entered: 03/04/2023 194 IMPRESSION: 1. No acute intracranial abnormality. 2. Chronic ischemic changes are present as described. 3. There is mild acute and chronic paranasal sinus disease. ASSESSMENT: ASPECTS ([place] Stroke Program Early CT Score) is 10. Impression By: Jose Juan Schuler M.D. Free Text Obj NotesFree Text Obj Notes:General: intubatedHEENT: anicteric, NCAT, ETT in palceCV: RRRPulm: symmetric expansion, mechanically ventilatedAbdomen: distended, soft, no grimace to palpationExt: no rash NeuroMental status: E1M1V1 but improved to G3H2OiNyekyg: initially non responsive to command ,later following midline and appendicular commandsCN: Pupils 4mm and sluggish, improved to 3 and brisk. OCR very sluggish, restricted; later intact to commandcorneal - no blink but initiation of a Borges's phenomenon BLCough absent initially, later present spontaneouslyMotor: initially without motor response to central or peripheral noxious stimulus later with at least 4/5 strength throughout all 4 extHyporeflexicPlantar response mute Train of four 1/4 on initial assessment Scores - Neuro NIH Stroke ScaleNIHSS applicable: YesNIHSS NIHSS Response Value Level of consciousness: Postures/unresponsive (3) 3 Ask month age: 0 questions right (2) 2 Blink eyes/squeeze hands: Performs 0 tasks (2) 2 Horizontal EOM: NL side/side eye mvmt (0) 0 Visual tidwell: No visual loss (0) 0 Right arm motor drift (10s) No movement (4) 4 Left arm motor drift (10s) No movement (4) 4 Right leg motor drift (5s) No movement (4) 4 Left leg motor drift (5s) No movement (4) 4 Limb ataxia FNF/Heel-Xavier Paralyzed (0) 0 Sensation (arms/legs/face): No response quadrip (2) 2 Language aphasia: Mute, global aphasia (3) 3 Dysarthria: Mute, anarthric (2) 2 Extinction/inattention: No extinct/inattent (0) 0 Total 30 Diagnosis, Assessment Plan Free Text DxA P NotesFree text DxA P notes:Patient is a 72 yo male with CAD s/p CABG today as well as severe carotid arterystenosis on the left for whom a code stroke was called due to fixed pupils afterreceiving narcan. Ceribell shows diffuse slowing without epileptiform activity. CTH was grossly unremarkable with no ICH, early ischemic changes and there were no hyperdense vessels noted. Discussed with Dr. Sheehan after train of four was only 1 of 4 and suggamadex was given following which the patient began to followcommands. - continue q1h neurochecks- given improvement you can defer CTA H N- maintain SBP 110-180mmHg from neuro standpoint but will defer to cv surgery and ICC. - exam improved with NM blockade reversal- ceribell reviewed at bedside and can be removed- Please contact neurology with any change in exam. at 7802 Addendum 1: 03/06/23 1020 by Faraz Maldonado MD Patient was not a TNK candidate given his major surgery within the last 2 weeks. at 1021 RPT #:[id number] OF [id number]:40:00G.PDOC2 [id number] for patient [id number]:56:46 [facility] 2023-03-04 18:25:00 [id number] 9-0075 [place] [address] PATIENT NAME: TEVIN NYE ADMIT DATE: 03/03/23ACCOUNT NO: [id number] ROOM NO: G.2201 AGE: 72 REPORT TYPE: eELECTROCARDIOGRAM REPORT SEX: M ADMITTING PHYSICIAN:Luci Villeda MD ATTENDING PHYSICIAN:Luci Villeda MD Order:[id number] Reason : Cardiac Surgery Post Op Test Date/Time Stamp:FriMar 04 2023 18:25:45Blood Pressure : / mmHGVent. Rate : 085 BPM Atrial Rate : 085 BPM P-R Int : 200 ms QRS Dur : 100 ms QT Int : 362 ms P-R-T Axes : 069 -69 106 degrees QTc Int : 430 ms Normal sinus rhythmLeft axis deviationLow voltage QRSAbnormal ECGWhen compared with ECG of 04-MAR-2023 07:07,No changesConfirmed by MD HIGINIO, ANUJ ([id number]) on 03/06/2023 6:01:53 PM Referred By: Self Referred Confirmed by:ANUJ SYLVESTER MD at 1801 PATIENT NAME: TEVIN NYE .[id number] AVAvailable for patient [id number]:02:17 [facility] 2023-03-04 18:21:00 [id number]:21:00 [facility] ([facility])Critical Care Consult NoteREPORT#:[id number] REPORT STATUS: SignedDATE:03/04/23 TIME: 1820 PATIENT: TEVIN NYE UNIT #: [id number]#: [id number] [address] AGE: 72 SEX: M ATTEND: Luci Villeda MDA AUTHOR: Noé Madrid MD * ALL edits or amendments must be made on the electronic/computer document * History of Present Illness HPIRequesting clinician: Dr Mars Fuenteseaspenny for consult: Chest painWheezingDyspneaMultivessel coronary artery diseaseNon-ST elevation MIStatus post CABG x5 and ILAAElective ventilator dependenceAcute pulmonary insufficiency following major cardiothoracic surgeryAcute blood loss anemiaMetabolic acidosisLactic acidosisHypokalemiaHyperglycemiaChronic steroid dependenceSevere left carotid stenosisHistory of severe COPD Chief complaint: DyspneaWheezingChest pain/Unstable angina PCP:PCP: No Primary or Family Physician HPI: Tevin Nye is a 72-year-old gentleman with past medical history significant for hypertension, diabetes, dyslipidemia, former smoker quit in 2008, BPH, prostate cancer status postradiation severe COPD, not home oxygen dependent, severe left carotid stenosis, who was admitted to the medical floor with diagnosis of NSTEMI. He was found to have severe multivessel coronary disease on cardiac catheterization. Patient also had shortness of breath and wheezing. He was seen by pulmonology and started on steroid therapy along with nebulizer treatments. Patient underwent elective coronary artery bypass grafting surgery and received 4 jumps along with isolation of left atrial appendage. He came outof the OR with norepinephrine at 4 mcg and epinephrine at 2 mcg. EF was normal. Patient received parasternal block. Intraoperatively he received 1.5 L of crystalloids, 250 mL of Cell Saver, hemoglobin was 8.3 g/dL but on arrival his latest hemoglobin is 6.9 g/dL. Patient has been ordered 2 units of packed red cells. Intra-Op urine output was 425 mL and EBL was 100 mL. Patient received fentanyl and last neuromuscular blockade dose was at 3:15 PM. Patient was givenhydrocortisone 100 mg IV at 2:45 PM for chronic steroid dependence. He is currently on assist-control at 18 tidal volume 480 PEEP of 5 and 50% FiO2 and ismoving tidal volumes at 470+. Vital signs are stable with heart rate 82 sinus rhythm, blood pressure 95/41 mmHg, pulse ox 100% while on 50% FiO2 and respiratory rate is 14. Chest tube output is minimal at 3 mm each. Patient wasordered albumin 25% to 50 mL. Pupils are bilaterally symmetrical and reactive to light measuring 3 mm on each side. Lab work upon arrival in the CVICU room #[id number] revealed a potassium of 3.3, glucose 230, creatinine 1.46 mg/dL, hemoglobinof 6.9 g/dL and hematocrit of 20%. Tevin Gonzalez is a 72 y.o. male with PMH of hypertension, dyslipidemia, diabetes, former smoker (quit 2008), BPH, prostate CA s/p radiation, COPD (uses inhaler at home, no home oxygen), and PE (November 2022 on eliquis) who presented to [facility] with chest pain, dyspnea on exertion, and NSTEMI. Coronary angiogram was done and revealed severe multivessel coronary artery disease. Patient was then transferred to [facility] for CV surgery evaluation and need for CABG. on the floor he had chest pain at rest and was transferred to the ICU for nitroglycerin drip and preoperative workup. Also noted to have chest pain - which he states is better and related to when he coughs. Currently without any pain. Patient underwent elective CABG x5 and isolation of left atrial appendage on 03/04/2023. History - Adult longitudinalPast medical history:Reports: COPD, Diabetes mellitus, Hypertension, BPH, Dyslipidemia. Past surgical history:Reports: Knee procedure, Lung surgery (collapsed lung). Alcohol use: Denies EtOH useDrug use: Denies recreational drugsSmoking status for patients 13 years old or older: Former SmokerPacks per day: 1Years smoked: 20Pack years: 20Medications:Home Medications:Medication Dose/Rte/Freq Days Qty Entered Last Max Daily Dose Reviewed OXYBUTYNIN (DITROPAN) 5 MG PO BID 03/03/23 03/03/23Strength: 5 MG TAB 1937 1948 TAMSULOSIN ER (FLOMAX) 0.8 MG PO DAILY 03/03/23 03/03/23Strength: 0.4 MG CAP.SR.24H 1938 1948 FLUoxetine (PROzac) 10 MG PO QAM 03/03/23 03/03/23Strength: 10 MG CAP 1938 1948 LATANOPROST 1 DROP EACH EYE 03/03/23 03/03/23 (XALATAN 0.005% OPHTH BEDTIME 1939 1948 SOLN)Strength: 0.005 % OPHTH.SOLN LISINOPRIL (ZESTRIL) 20 MG PO DAILY 03/03/23 03/03/23Strength: 20 MG TAB 1939 1948 METOPROLOL TARTRATE 25 MG PO BID 03/03/23 03/03/23 (LOPRESSOR) 1940 1948Strength: 50 MG TAB INSULIN LISPRO 6 03/03/23 03/03/23 (HumaLOG KWIKPEN (3mL)) 1942 1948Strength: 100 UNIT/MLINSULN.PEN INSULIN LISPRO (HumaLOG) 50 03/03/23 03/03/23Strength: 100 UNIT/ML VIAL 1943 1948 CALCIUM CARBONATE/VIT 2 TAB PO DAILY 03/03/23 03/03/23 D3 1944 1948 (CALCIUM CARB/VIT D3 500 MG/200 UNITS)Strength: 500 MG CALCIUM-5MCG (200 UNIT) TAB CYANOCOBALAMIN 100 MCG PO DAILY 03/03/23 03/03/23 (VITAMIN B-12) 1944 1948Strength: 100 MCG TAB HYDROCHLOROTHIAZIDE 25 MG PO DAILY 03/03/23 03/03/23 (HYDRODIURIL) 1945 1948Strength: 25 MG TAB APIXABAN (ELIQUIS) 5 MG PO BID 03/03/23 03/03/23Strength: 5 MG TAB 1946 1948 ASPIRIN 81 MG PO DAILY 03/03/23 03/03/23Strength: 81 MG TAB.CHEW 1946 1948 ATORVASTATIN (LIPITOR) 5 MG PO DAILY 03/03/23 03/03/23Strength: 10 MG TAB 1947 1948 Current Hospital Medications:Anti-Infective Agents Sig/Yas Start time Last Medication Dose Route Stop Time Status Admin Vancomycin HCl 1,000 MG Q12H 03/04 1700 PEND (VANCOMYCIN HCL) IV 03/05 0559 Sodium Chloride 250 ML (SODIUM CHLORIDE 0.9%) Clindamycin Phosphate 50 ML .STK-MED ONE 03/04 1138 DC (CLEOCIN 900 MG/NS IV 50 ML) Vancomycin HCl 0 .STK-MED ONE 03/04 1138 DC (Vancomycin 1,250 mg IV Inj (B2)) Clindamycin Phosphate 50 ML PREOP ONCALL 03/04 0500 CKD (CLEOCIN 900 MG/NS IV 03/04 2359 50 ML) Vancomycin HCl 1,250 MG PREOP ONCALL 03/04 0500 CKD (Vancomycin 1,250 mg IV 03/04 2359 Inj (B2)) Sodium Chloride 250 ML (SODIUM CHLORIDE 0.9%) Doxycycline Hyclate 100 MG Q12HR 03/03 2100 AC 03/04 (VIBRAMYCIN) IV 03/08 2059 0954 Sodium Chloride 100 ML (SODIUM CHLORIDE 0.9% 100 ML) Autonomic Drugs Sig/Yas Start time Last Medication Dose Route Stop Time Status Admin Ipratropium [place] 500 MCG RTQ2H PRN PRN 03/07 1655 AC (ATROVENT) INH 04/06 1654 Ipratropium [place] 500 MCG RTQ4H 03/04 2000 AC (ATROVENT) INH 03/07 1655 Epinephrine 4 MG ASDIR 03/04 1700 AC (ADRENALIN CHLORIDE) IV 04/03 1659 Dextrose/Water 246 ML (DEXTROSE 5% WATER) Norepinephrine 250 ML TITRATE 03/04 1700 AC Bitartrate IV 04/03 1659 (NOREPINEPHRINE 8 MG/ NS 250 ML) Albuterol Sulfate 0 .STK-MED ONE 03/04 1511 DC (VENTOLIN HFA) INH Glycopyrrolate 0 .STK-MED ONE 03/04 1307 DC (GLYCOPYRROLATE) .ROUTE Neostigmine 0 .STK-MED ONE 03/04 1307 DC Methylsulfate .ROUTE (PROSTIGMIN) Rocuronium [place] 0 .STK-MED ONE 03/04 1019 DC (ZEMURON) IV Rocuronium [place] 0 .STK-MED ONE 03/04 0754 DC (ZEMURON) IV Phenylephrine HCl 0 .STK-MED ONE 03/04 0736 DC (JESUS-SYNEPHRINE 10MG/ .ROUTE ML AMP) Rocuronium [place] 0 .STK-MED ONE 03/04 0731 DC (ZEMURON) IV Succinylcholine 0 .STK-MED ONE 03/04 0731 DC Chloride IV (QUELICIN FLIPTOP) Epinephrine HCl 250 ML .STK-MED ONE 03/04 728 DC (EPINEPHrine 4 mg/ IV D5W 250 mL) Norepinephrine 250 ML .STK-MED ONE 03/04 728 DC Bitartrate IV (NOREPINEPHRINE 8 MG/ NS 250 ML) Formoterol Fumarate 20 MCG RTBID 03/03 2200 AC 03/03 (PERFOROMIST) NEB 04/02 Ipratropium [place] 500 MCG RTQ6H 03/03 2100 DC 03/04 (ATROVENT) INH 04/0236 Albuterol Sulfate 2.5 MG RTONCE ONE 03/03 2000 DC 03/03 (ALBUTEROL SULFATE) NEB 03/03 Blood Derivatives Sig/Yas Start time Last Medication Dose Route Stop Time Status Admin Albumin Human 25 GM ASDIR PRN 03/04 1700 AC (ALBUMINAR 25%) IV 03/05 1655 Albumin Human 100 ML .STK-MED ONE 03/04 1211 DC (ALBUMINAR-25%) IV Albumin Human 50 ML .STK-MED ONE 03/04 07 DC (ALBUMINAR-25%) IV Blood Formation,Coagulation Sig/Yas Start time Last Medication Dose Route Stop Time Status Admin Ferrous Sulfate 325 MG DAILY 03/07 0900 AC (FERROUS SULFATE) PO 04/06 0859 Clopidogrel Bisulfate 75 MG DAILY 03/05 0900 AC (Plavix) PO 04/04 0859 Protamine Sulfate 0 .STK-MED ONE 03/04 1400 DC (PROTAMINE SULFATE) IV Protamine Sulfate 0 .STK-MED ONE 03/04 1303 DC (PROTAMINE SULFATE) IV Heparin Sodium 0 .STK-MED ONE 03/04 0754 DC (HEPARIN SODIUM) .ROUTE Heparin Sodium 0 .STK-MED ONE 03/04 07 DC (HEPARIN SODIUM) .ROUTE Heparin Sodium 0 .STK-MED ONE 06/27 0728 DC (HEPARIN SODIUM) .ROUTE Aminocaproic Acid 0 .STK-MED ONE 03/04 727 DC (AMICAR) IV Protamine Sulfate 0 .STK-MED ONE 03/04 727 DC (PROTAMINE SULFATE) IV Heparin Sodium 0 ASDIR PRN 03/03 2000 AC (HEPARIN 5000 UNITS/ IV 04/02 195 ML) Heparin Sodium 500 ML ASDIR 03/03 2000 CKD 03/03 (Porcine) IV 04/02 (HEPARIN 25,000 UNITS/ 1/2NS 500ML) Cardiovascular Drugs Sig/Yas Start time Last Medication Dose Route Stop Time Status Admin Atorvastatin Calcium 40 MG 03/05 AC (LIPITOR) PO 04/04 2059 Amiodarone HCl 200 MG TID 03/04 2100 AC (CORDARONE) PO 04/03 2059 Metoprolol Tartrate 12.5 MG Q12HR 03/04 2100 AC (LOPRESSOR) PO 04/03 2059 Nitroglycerin/ 250 ML ASDIR 03/04 170 AC Dextrose IV 04/03 165 (NITROGLYCERIN 50,000MCG/D5W 250ML) Papaverine HCl 0 .STK-MED ONE 03/04 1224 DC (PAPAVERINE HCL) IV Lidocaine HCl 0 .STK-MED ONE 03/04 0754 DC (XYLOCAINE) .ROUTE Lidocaine HCl 0 .STK-MED ONE 03/04 0736 DC (XYLOCAINE IV) IV Lidocaine HCl 0 .STK-MED ONE 03/04 0731 DC (XYLOCAINE) .ROUTE Nitroglycerin/ 250 ML .STK-MED ONE 03/04 07 DC Dextrose IV (NITROGLYCERIN 50,000MCG/D5W 250ML) Metoprolol Tartrate 6.25 MG ONCE ONE 03/04 0500 DC 03/04 (LOPRESSOR) PO 03/04 0501 0433 Verapamil HCl 16.6 MG .Q24H ONE 03/04 0500 CKD (ISOPTIN) IV 03/05 0459 Heparin Sodium 1,660 UNIT (Porcine) (HEPARIN SODIUM) Sodium Bicarbonate 0.7 ML (SODIUM BICARBONATE) Nitroglycerin/ 8.3 MG Dextrose (NITROGLYCERIN 50MG/ D5W 250ML) Lactated Ringer's 949.5 ML (LACTATED RINGERS) Nitroglycerin/ 250 ML ASDIR 03/03 2000 AC 03/03 Dextrose IV 04/02 (NITROGLYCERIN 50,000MCG/D5W 250ML) Central Nervous System Agents Sig/Yas Start time Last Medication Dose Route Stop Time Status Admin Aspirin 81 MG DAILY 03/04 2255 AC (ASPIRIN) PO 04/03 225 Gabapentin 200 MG BID 03/04 2100 AC (NEURONTIN) PO 03/09 0901 Acetaminophen 650 MG Q4H PRN PRN 03/04 1700 AC (TYLENOL) PO 04/03 165 Acetaminophen 650 MG Q4H PRN PRN 03/04 1700 AC (TYLENOL) RECTAL 04/03 1659 Magnesium Sulfate 100 ML ASDIR PRN 03/04 1700 AC (MAGNESIUM SULFATE IV 04/03 165 4GM/SWFI 100ML) Magnesium Sulfate 50 ML ASDIR PRN 03/04 1700 AC (MAGNESIUM SULFATE IV 04/03 165 2GM/SWFI 50ML) Magnesium Sulfate/ 100 ML ASDIR PRN 03/04 1700 AC Dextrose IV 04/03 1659 (MAGNESIUM SULFATE 1GM/D5W 100ML) Fentanyl Citrate 0 .STK-MED ONE 03/04 1233 DC (SUBLIMAZE) .ROUTE Fentanyl Citrate 0 .STK-MED ONE 03/04 1145 DC (SUBLIMAZE) IV Fentanyl Citrate 0 .STK-MED ONE 03/04 0850 DC (SUBLIMAZE) .ROUTE Fentanyl Citrate 0 .STK-MED ONE 03/04 0753 DC (SUBLIMAZE) .ROUTE Propofol 20 ML .STK-MED ONE 03/04 0753 DC (DIPRIVAN 200MG/20ML IV INJECTION) Magnesium Sulfate 0 .STK-MED ONE 03/04 0736 DC (MAGNESIUM SULFATE) IV Etomidate 0 .STK-MED ONE 03/04 0731 DC (AMIDATE) IV Magnesium Sulfate 0 .STK-MED ONE 03/04 0727 DC (MAGNESIUM SULFATE) .ROUTE Morphine Sulfate 1 MG ONCE ONE 03/04 0700 DC 03/04 (morphine SULFATE) IV 03/04 0701 0704 Acetaminophen 1,000 MG PREOP ONCALL 03/03 2000 DC 03/04 (TYLENOL EXTRA PO 04/02 1959 0434 STRENGTH) Gabapentin 200 MG PREOP ONCALL 03/03 2000 DC 03/04 (NEURONTIN) PO 04/02 1049 0434 Diagnostic Agents Sig/Yas Start time Last Medication Dose Route Stop Time Status Admin Iopamidol 100 ML .STK-MED ONE 03/03 2343 DC 03/03 (ISOVUE-300 100ML) IV 03/034 2343 Electrolytic, Caloric, And Agata Sig/Yas Start time Last Medication Dose Route Stop Time Status Admin Calcium Chloride 1 GM ASDIR PRN 03/04 1700 AC (CALCIUM CHLORIDE) IV 04/03 1659 Dextrose/Water 125 ML ASDIR PRN 03/04 1700 CKD (DEXTROSE 10% IN IV 04/03 165 WATER) Dextrose/Water 250 ML ASDIR PRN 03/04 1700 CKD (DEXTROSE 10% IN IV 04/03 165 WATER) Potassium Chloride 100 ML ASDIR PRN 03/04 1700 AC (KCL 20MEQ/SWFI IV 04/03 165 100ML) Sodium Bicarbonate 50 MEQ ASDIR PRN 03/04 1700 AC (SODIUM BICARBONATE) IV 04/03 1659 Sodium Chloride 1,000 ML .Q20H 03/04 1700 AC (SODIUM CHLORIDE IV 04/03 165 0.9%) Sodium Chloride 250 ML Q24H 03/04 1700 AC (SODIUM CHLORIDE IV 04/03 165 0.9%) Parenteral 1,000 ML .ST-MED ONE 03/04 1250 DC Electrolytes IV (PLASMA-LYTE A pH 7.4) Sodium Chloride 250 ML .STK-MED ONE 03/04 1138 DC (SODIUM CHLORIDE IV 0.9%) Mannitol 500 ML .STK-MED ONE 03/04 0737 DC (Mannitol 20%) IV Sodium Chloride 100 ML .STK-MED ONE 03/04 0737 DC (SODIUM CHLORIDE IV 0.9%) Sodium Bicarbonate 0 .STK-MED ONE 03/04 0736 DC (SODIUM BICARBONATE) IV Calcium Chloride 0 .STK-MED ONE 03/04 0727 DC (CALCIUM CHLORIDE) IV Sodium Chloride 100 ML .STK-MED ONE 03/04 0727 DC (SODIUM CHLORIDE IV 0.9%) Eye, Ear, Nose And Throat (Een Sig/Yas Start time Last Medication Dose Route Stop Time Status Admin Dexamethasone Sodium 0 .STK-MED ONE 03/04 0754 DC Phosphate .ROUTE (DECADRON) Dexamethasone Sodium 0 .STK-MED ONE 03/04 0731 DC Phosphate .ROUTE (DECADRON) Budesonide 0.5 MG RTBID 03/03 2200 AC 03/04 (PULMICORT RESPULES) INH 04/02 2159 0836 Gastrointestinal Drugs Sig/Yas Start time Last Medication Dose Route Stop Time Status Admin Bisacodyl 10 MG ONCE PRN 03/06 1200 AC (DULCOLAX) RECTAL 04/05 1159 Magnesium Hydroxide 30 ML ONCE PRN 03/06 1200 AC (MILK OF MAGNESIA) PO Polyethylene Glycol 17 GM DAILY 03/05 0900 AC (MIRALAX) PO 04/04 0859 Pantoprazole 40 MG DAILY@0600 03/05 0600 AC (PROTONIX) PO 04/04 0559 Docusate Sodium 100 MG BID 03/04 2100 AC (COLACE) PO 04/03 2059 Sennosides 17.2 MG BEDTIME 03/04 2100 AC (Senna Lax 8.6 MG PO 04/03 2059 TABLET) Ondansetron HCl 4 MG Q6H PRN PRN 03/04 1700 AC (ZOFRAN) IV 04/03 1659 Ondansetron HCl 0 .STK-MED ONE 03/04 0754 DC (ZOFRAN) .ROUTE Ondansetron HCl 0 .STK-MED ONE 03/04 0731 DC (ZOFRAN) .ROUTE Hormones And Synthetic Substit Sig/Yas Start time Last Medication Dose Route Stop Time Status Admin Hydrocortisone 25 MG Q8HR 03/04 2200 PEND Sodium Succinate IV 04/03 2159 (Solu-CORTEF) Glucagon 1 MG ASDIR PRN 03/04 1700 AC (GLUCAGON) IM 04/03 1659 Insulin Human Regular 100 UNIT ASDIR 03/04 1700 CKD (HumuLIN R) IV 04/03 1659 Sodium Chloride 99 ML (SODIUM CHLORIDE 0.9%) Hydrocortisone 100 MG ONCE ONE 03/04 1445 DC Sodium Succinate IV 03/04 1446 (Solu-CORTEF) Insulin Human Lispro 0 AC HS 03/04 1130 DC (HUMALOG) SUBQ 04/03 1129 Insulin Human Regular 100 ML .STK-MED ONE 03/04 0728 DC (HumuLIN R 100 UNITS/ IV NS 100ML) Methylprednisolone 40 MG Q8H 03/03 2015 AC 03/04 Sodium Succinate IV 04/02 2014 0434 (Solu-Medrol 40 MG Vial) Local Anesthetics (Parenteral) Sig/Ays Start time Last Medication Dose Route Stop Time Status Admin Ropivacaine 0 .STK-MED ONE 06/27 0727 DC (NAROPIN 0.5% 150 MG/ .ROUTE 30mL) Miscellaneous Therapeutic Agen Sig/Yas Start time Last Medication Dose Route Stop Time Status Admin Perflutren Protein 0 .STK-MED ONE 03/04 1712 DC 03/04 Type A Microsphe IV 1715 (OPTISON 3ML VIAL) Pharmaceutical Aids Sig/Yas Start time Last Medication Dose Route Stop Time Status Admin Sterile Water 1 ML ASDIR PRN 03/03 2015 AC (WATER FOR INJECTION) IV 04/02 2014 Respiratory Tract Agents Sig/Yas Start time Last Medication Dose Route Stop Time Status Admin Guaifenesin 600 MG Q12HR 03/03 2100 AC 03/04 (MUCINEX 600MG TAB PO 04/02 2059 0953 SA) Skin And Mucous Membrane Agent Sig/Yas Start time Last Medication Dose Route Stop Time Status Admin Mupirocin 1 APPLIC BID 03/03 2100 AC 03/04 (BACTROBAN 2% 22 GM NASAL 03/08 0901 0953 OINTMENT) Vitamins Sig/Yas Start time Last Medication Dose Route Stop Time Status Admin Cyanocobalamin 500 MCG DAILY 03/07 0900 AC (Vitamin B-12 500 PO 04/06 0859 mcg tab) Allergies:Coded Allergies:Penicillins (USE COMMENT BUTTON 03/03/23) PT STATES THAT HE WAS JUST TOLD THAT HE'S ALLERGIC TO PENICILLIN AND ITS NOT GONNA WORK FOR HIM Review of Systems ROSUnable to obtain due to:Patient is orally intubated on the ventilator after major cardiothoracic surgery. He underwent CABG x5 along with isolation of left atrial appendage. Patient has been on chronic steroid therapy and required hydrocortisone 100 mg IV intraoperatively for a renal cortical support. Has acute blood loss anemia with hemoglobin of 6.9 g/dL and 2 units of packed red cells have been ordered. Objective Physical ExamVS/I O:Last Documented: Result Date Time FiO2 40 03/04 1801 Pulse Ox 100 03/04 1801 O2 Delivery Ventilator 03/04 1801 Pulse 82 03/04 1750 B/P 89/37 03/04 1750 Resp 18 03/04 1750 B/P Mean 81 03/04 1130 O2 Flow Rate 4 03/04 0836 Temp 36.3 03/04 0045 24 hour I O ending at 0700: 03/04 0700 03/03 1900 Intake Total Output Total Balance Patient 83 kg Weight Weight Stated/Reported Measurement Method Patient Weight and BMI Weight (kg): 83.000 BMI: 28.7 Medications:Active Meds + DC'd Last 24 HrsIpratropium [place] (ATROVENT) 500 MCG RTQ2H PRN PRN INH Cyanocobalamin (Vitamin B-12 500 mcg tab) 500 MCG DAILY PO Ferrous Sulfate (FERROUS SULFATE) 325 MG DAILY PO Bisacodyl (DULCOLAX) 10 MG ONCE PRN RECTAL Magnesium Hydroxide (MILK OF MAGNESIA) 30 ML ONCE PRN PO Atorvastatin Calcium (LIPITOR) 40 MG 2100 PO Clopidogrel Bisulfate (Plavix) 75 MG DAILY PO Polyethylene Glycol (MIRALAX) 17 GM DAILY PO Pantoprazole (PROTONIX) 40 MG DAILY@0600 PO Aspirin (ASPIRIN) 81 MG DAILY PO Hydrocortisone Sodium Succinate (Solu-CORTEF) 25 MG Q8HR IV (PEND) Amiodarone HCl (CORDARONE) 200 MG TID PO Docusate Sodium (COLACE) 100 MG BID PO Gabapentin (NEURONTIN) 200 MG BID PO Metoprolol Tartrate (LOPRESSOR) 12.5 MG Q12HR PO Sennosides (Senna Lax 8.6 MG TABLET) 17.2 MG BEDTIME PO Ipratropium [place] (ATROVENT) 500 MCG RTQ4H INH Perflutren Protein Type A Microsphe (OPTISON 3ML VIAL) 0 .STK-MED ONE IV (DC) Acetaminophen (TYLENOL) 650 MG Q4H PRN PRN PO Acetaminophen (TYLENOL) 650 MG Q4H PRN PRN RECTAL Albumin Human (ALBUMINAR 25%) 25 GM ASDIR PRN IV Calcium Chloride (CALCIUM CHLORIDE) 1 GM ASDIR PRN IV Dextrose/Water (DEXTROSE 10% IN WATER) 125 ML ASDIR PRN IV (CKD) Dextrose/Water (DEXTROSE 10% IN WATER) 250 ML ASDIR PRN IV (CKD) Epinephrine (ADRENALIN CHLORIDE) 4 MG ASDIR IV Dextrose/Water (DEXTROSE 5% WATER) 246 MLGlucagon (GLUCAGON) 1 MG ASDIR PRN IM Insulin Human Regular (HumuLIN R) 100 UNIT ASDIR IV (CKD) Sodium Chloride (SODIUM CHLORIDE 0.9%) 99 MLMagnesium Sulfate (MAGNESIUM SULFATE 4GM/SWFI 100ML) 100 ML ASDIR PRN IV Magnesium Sulfate (MAGNESIUM SULFATE 2GM/SWFI 50ML) 50 ML ASDIR PRN IV Magnesium Sulfate/Dextrose (MAGNESIUM SULFATE 1GM/D5W 100ML) 100 ML ASDIR PRN IV Nitroglycerin/Dextrose (NITROGLYCERIN 50,000MCG/D5W 250ML) 250 ML ASDIR IV Norepinephrine Bitartrate (NOREPINEPHRINE 8 MG/NS 250 ML) 250 ML TITRATE IV Ondansetron HCl (ZOFRAN) 4 MG Q6H PRN PRN IV Potassium Chloride (KCL 20MEQ/SWFI 100ML) 100 ML ASDIR PRN IV Sodium Bicarbonate (SODIUM BICARBONATE) 50 MEQ ASDIR PRN IV Sodium Chloride (SODIUM CHLORIDE 0.9%) 1,000 ML .Q20H IV Sodium Chloride (SODIUM CHLORIDE 0.9%) 250 ML Q24H IV Vancomycin HCl (VANCOMYCIN HCL) 1,000 MG Q12H IV (PEND) Sodium Chloride (SODIUM CHLORIDE 0.9%) 250 MLAlbuterol Sulfate (VENTOLIN HFA) 0 .STK-MED ONE INH (DC) Hydrocortisone Sodium Succinate (Solu-CORTEF) 100 MG ONCE ONE IV (DC) Protamine Sulfate (PROTAMINE SULFATE) 0 .STK-MED ONE IV (DC) Glycopyrrolate (GLYCOPYRROLATE) 0 .STK-MED ONE .ROUTE (DC) Neostigmine Methylsulfate (PROSTIGMIN) 0 .STK-MED ONE .ROUTE (DC) Protamine Sulfate (PROTAMINE SULFATE) 0 .STK-MED ONE IV (DC) Parenteral Electrolytes (PLASMA-LYTE A pH 7.4) 1,000 ML .STK-MED ONE IV (DC) Fentanyl Citrate (SUBLIMAZE) 0 .STK-MED ONE .ROUTE (DC) Papaverine HCl (PAPAVERINE HCL) 0 .STK-MED ONE IV (DC) Albumin Human (ALBUMINAR-25%) 100 ML .STK-MED ONE IV (DC) Fentanyl Citrate (SUBLIMAZE) 0 .STK-MED ONE IV (DC) Clindamycin Phosphate (CLEOCIN 900 MG/NS 50 ML) 50 ML .STK-MED ONE IV (DC) Sodium Chloride (SODIUM CHLORIDE 0.9%) 250 ML .STK-MED ONE IV (DC) Vancomycin HCl (Vancomycin 1,250 mg Inj (B2)) 0 .STK-MED ONE IV (DC) Insulin Human Lispro (HUMALOG) 0 AC HS SUBQ (DC) Rocuronium [place] (ZEMURON) 0 .STK-MED ONE IV (DC) Fentanyl Citrate (SUBLIMAZE) 0 .STK-MED ONE .ROUTE (DC) Dexamethasone Sodium Phosphate (DECADRON) 0 .STK-MED ONE .ROUTE (DC) Heparin Sodium (HEPARIN SODIUM) 0 .STK-MED ONE .ROUTE (DC) Lidocaine HCl (XYLOCAINE) 0 .STK-MED ONE .ROUTE (DC) Ondansetron HCl (ZOFRAN) 0 .STK-MED ONE .ROUTE (DC) Rocuronium [place] (ZEMURON) 0 .STK-MED ONE IV (DC) Fentanyl Citrate (SUBLIMAZE) 0 .STK-MED ONE .ROUTE (DC) Propofol (DIPRIVAN 200MG/20ML INJECTION) 20 ML .STK-MED ONE IV (DC) Albumin Human (ALBUMINAR-25%) 50 ML .STK-MED ONE IV (DC) Heparin Sodium (HEPARIN SODIUM) 0 .STK-MED ONE .ROUTE (DC) Mannitol (Mannitol 20%) 500 ML .STK-MED ONE IV (DC) Sodium Chloride (SODIUM CHLORIDE 0.9%) 100 ML .STK-MED ONE IV (DC) Lidocaine HCl (XYLOCAINE IV) 0 .STK-MED ONE IV (DC) Magnesium Sulfate (MAGNESIUM SULFATE) 0 .STK-MED ONE IV (DC) Phenylephrine HCl (JESUS-SYNEPHRINE 10MG/ML AMP) 0 .STK-MED ONE .ROUTE (DC) Sodium Bicarbonate (SODIUM BICARBONATE) 0 .STK-MED ONE IV (DC) Dexamethasone Sodium Phosphate (DECADRON) 0 .STK-MED ONE .ROUTE (DC) Etomidate (AMIDATE) 0 .STK-MED ONE IV (DC) Lidocaine HCl (XYLOCAINE) 0 .STK-MED ONE .ROUTE (DC) Ondansetron HCl (ZOFRAN) 0 .STK-MED ONE .ROUTE (DC) Rocuronium [place] (ZEMURON) 0 .STK-MED ONE IV (DC) Succinylcholine Chloride (QUELICIN FLIPTOP) 0 .STK-MED ONE IV (DC) Epinephrine HCl (EPINEPHrine 4 mg/D5W 250 mL) 250 ML .STK-MED ONE IV (DC) Heparin Sodium (HEPARIN SODIUM) 0 .STK-MED ONE .ROUTE (DC) Insulin Human Regular (HumuLIN R 100 UNITS/NS 100ML) 100 ML .STK-MED ONE IV (DC) Norepinephrine Bitartrate (NOREPINEPHRINE 8 MG/NS 250 ML) 250 ML .STK-MED ONE IV (DC) Aminocaproic Acid (AMICAR) 0 .STK-MED ONE IV (DC) Calcium Chloride (CALCIUM CHLORIDE) 0 .STK-MED ONE IV (DC) Magnesium Sulfate (MAGNESIUM SULFATE) 0 .STK-MED ONE .ROUTE (DC) Nitroglycerin/Dextrose (NITROGLYCERIN 50,000MCG/D5W 250ML) 250 ML .STK-MED ONE IV (DC) Protamine Sulfate (PROTAMINE SULFATE) 0 .STK-MED ONE IV (DC) Ropivacaine (NAROPIN 0.5% 150 MG/30mL) 0 .STK-MED ONE .ROUTE (DC) Sodium Chloride (SODIUM CHLORIDE 0.9%) 100 ML .STK-MED ONE IV (DC) Morphine Sulfate (morphine SULFATE) 1 MG ONCE ONE IV (DC) Clindamycin Phosphate (CLEOCIN 900 MG/NS 50 ML) 50 ML PREOP ONCALL IV (CKD) Metoprolol Tartrate (LOPRESSOR) 6.25 MG ONCE ONE PO (DC) Vancomycin HCl (Vancomycin 1,250 mg Inj (B2)) 1,250 MG PREOP ONCALL IV (CKD) Sodium Chloride (SODIUM CHLORIDE 0.9%) 250 MLVerapamil HCl (ISOPTIN) 16.6 MG .Q24H ONE IV (CKD) Heparin Sodium (Porcine) (HEPARIN SODIUM) 1,660 UNIT Sodium Bicarbonate (SODIUM BICARBONATE) 0.7 ML Nitroglycerin/Dextrose (NITROGLYCERIN 50MG/D5W 250ML) 8.3 MG Lactated Ringer's (LACTATED RINGERS) 949.5 MLIopamidol (ISOVUE-300 100ML) 100 ML .STK-MED ONE IV (DC) Budesonide (PULMICORT RESPULES) 0.5 MG RTBID INH Formoterol Fumarate (PERFOROMIST) 20 MCG RTBID NEB Doxycycline Hyclate (VIBRAMYCIN) 100 MG Q12HR IV Sodium Chloride (SODIUM CHLORIDE 0.9% 100 ML) 100 MLGuaifenesin (MUCINEX 600MG TAB SA) 600 MG Q12HR PO Ipratropium [place] (ATROVENT) 500 MCG RTQ6H INH (DC) Mupirocin (BACTROBAN 2% 22 GM OINTMENT) 1 APPLIC BID NASAL Methylprednisolone Sodium Succinate (Solu-Medrol 40 MG Vial) 40 MG Q8H IV Sterile Water (WATER FOR INJECTION) 1 ML ASDIR PRN IV Acetaminophen (TYLENOL EXTRA STRENGTH) 1,000 MG PREOP ONCALL PO (DC) Albuterol Sulfate (ALBUTEROL SULFATE) 2.5 MG RTONCE ONE NEB (DC) Gabapentin (NEURONTIN) 200 MG PREOP ONCALL PO (DC) Heparin Sodium (HEPARIN 5000 UNITS/ML) 0 ASDIR PRN IV Heparin Sodium (Porcine) (HEPARIN 25,000 UNITS/ 1/2NS 500ML) 500 ML ASDIR IV (CKD) Nitroglycerin/Dextrose (NITROGLYCERIN 50,000MCG/D5W 250ML) 250 ML ASDIR IV General appearance: altered mental status, respiratory support, no acute distress, no respiratory distressHead/Eyes: EOMI, PERRLCardiovascular: normal capillary refill, normal heart sounds, regular rate and rhythm, normal S1/L6Gythtrnvtda: aerating well, clear to auscultation, symmetric expansionAbdomen: soft, non-tenderGenitourinary: urinary catheter, no bladder distentionExtremities: no clubbing, no cyanosis, no edemaSkin: abnormal temperature, dry, no rashPsychiatry: unable to evaluate ResultsFindings/Data:Laboratory Tests 03/04/23 1743:[Embedded Image Not Available] 03/04/23 0354:[Embedded Image Not Available] 03/04/23 0235:[Embedded Image Not Available] 03/03/237:[Embedded Image Not Available]Laboratory Tests 03/04 03/04 03/04 03/04 1758 1733 1636 1609Blood Gas Puncture Site Art Line O2 Saturation (90 - 100 %) 99.4 100.0 100.0 100.0 ABG pH (7.35 - 7.45) 7.280 *L 7.323 L 7.383 7.382 ABG pCO2 (35.0 - 45 mmHg) 43.0 41.3 39.4 40.6 ABG pO2 (80 - 100.0 mmHg) 175.5 H 402.1 *H 405.8 *H 476.4 *H ABG PO2/FiO2 Ratio (mm/Hg) 351.00 ABG HCO3 (22.0 - 26.0 MMOL/L) 20.2 L 21.4 L 23.5 24.1 ABG Total CO2 21.5 22.7 24.7 25.3 ABG Base Excess (-4.0 - 4.0 MMOL/L) -6.5 L -4.4 L -1.5 -0.9 ABG Hematocrit (37.5 - 50.7 %) 20 L 25 L 18 L 20 L ABG Hemoglobin (12.5 - 16.9 G/DL) 6.9 L 8.3 L 6.2 L 6.7 L Shayla Test N/A Sodium (134 - 147 mmol/L) 141 143 139 140 Potassium (3.4 - 5.0 mmol/L) 3.3 L 3.3 L 4.6 4.4 Chloride (100 - 108 mmol/L) 107 109 H 106 108 Ionized Calcium (1.12 - 1.32 MMOL/L) 1.21 1.22 1.08 L 1.07 L Lactic Acid (0.9 - 1.7 mmol/l) 3.2 H 2.0 H 1.7 O2 Delivery Device Adult Vent Vent Mode AC Vent Rate (/MIN) 18 FiO2 (%) 50 Tidal Volume (ml) 480 PEEP (cmH2O) 5 03/04 03/04 03/04 1537 1506 1228 Blood Gas O2 Saturation (90 - 100 %) 100.0 100.0 100.0 ABG pH (7.35 - 7.45) 7.367 7.221 *L 7.390 ABG pCO2 (35.0 - 45 mmHg) 43.1 56.0 *H 36.7 ABG pO2 (80 - 100.0 mmHg) 489.2 *H 497.4 *H 449.5 *H ABG HCO3 (22.0 - 26.0 MMOL/L) 24.7 23.0 22.2 ABG Total CO2 26.1 24.7 23.3 ABG Base Excess (-4.0 - 4.0 MMOL/L) -0.6 -4.8 L -2.4 ABG Hematocrit (37.5 - 50.7 %) 20 L 26 L 29 L ABG Hemoglobin (12.5 - 16.9 G/DL) 6.6 L 8.8 L 9.8 L Sodium (134 - 147 mmol/L) 140 141 140 Potassium (3.4 - 5.0 mmol/L) 4.5 3.4 4.4 Chloride (100 - 108 mmol/L) 106 109 H 107 Ionized Calcium (1.12 - 1.32 MMOL/L) 1.02 L 1.15 1.15 Lactic Acid (0.9 - 1.7 mmol/l) 0.6 L < 0.3 L 0.7 L Laboratory Tests 03/04 03/04 03/04 03/04 03/04 1758 1743 1733 1636 1609 Chemistry Sodium (134 - 147 mEq/L) 143 Potassium (3.4 - 5.0 mEq/L) 3.3 L Chloride (100 - 108 mEq/L) 110 H Carbon Dioxide (21 - 33 mEq/l) 22 Anion Gap (0 - 20) 14 BUN (7 - 18 mg/dL) 37 H Creatinine (0.6 - 1.3 mg/dL) 1.7 H POC Creatinine (0.8 - 1.3 mg/dL) 1.5 H 1.4 H 1.4 H 1.4 H Glomerular Filtr Rate (70 - 80) 42.6 L Glucose (70 - 110 mg/dL) 225 H POC Glucose (mg/dL) (70 - 110 MG/DL) 230 H 196 H 232 H 245 H Calcium (8.0 - 10.5 mg/dL) 8.3 Magnesium (1.80 - 2.40 mg/dL) 2.98 H 03/04 03/04 03/04 03/04 03/04 1537 1506 1228 0726 0354Chemistry Sodium (134 - 147 mEq/L) 140 Potassium (3.4 - 5.0 mEq/L) 4.6 Chloride (100 - 108 mEq/L) 106 Carbon Dioxide (21 - 33 mEq/l) 22 Anion Gap (0 - 20) 17 BUN (7 - 18 mg/dL) 27 H Creatinine (0.6 - 1.3 mg/dL) 1.3 POC Creatinine (0.8 - 1.3 mg/dL) 1.3 1.2 1.3 Glomerular Filtr Rate (70 - 80) 58.7 L Glucose (70 - 110 mg/dL) 295 H POC Glucose (mg/dL) (70 - 110 MG/DL) 241 H 271 H 399 H Calcium (8.0 - 10.5 mg/dL) 8.4 Magnesium (1.80 - 2.40 mg/dL) 1.76 L Total Bilirubin (0.0 - 1.0 mg/dL) 0.50 AST (15 - 37 IUnit/L) 17 ALT (30 - 65 IUnit/L) 8 L Total Alk Phosphatase (20 - 125 IUnit/L) 45 Troponin I High Sens (0 - 54 ng/L) 617 *H Total Protein (6.4 - 8.2 g/dL) 6.0 L Albumin (3.4 - 5.0 g/dL) 3.00 L 03/03 Chemistry Sodium (134 - 147 mEq/L) 142 Potassium (3.4 - 5.0 mEq/L) 4.2 Chloride (100 - 108 mEq/L) 109 H Carbon Dioxide (21 - 33 mEq/l) 28 Anion Gap (0 - 20) 9 BUN (7 - 18 mg/dL) 24 H Creatinine (0.6 - 1.3 mg/dL) 1.2 Glomerular Filtr Rate (70 - 80) 64.7 L Glucose (70 - 110 mg/dL) 148 H Hemoglobin A1c (4.8 - 6.0 %A1C) 7.1 H Calcium (8.0 - 10.5 mg/dL) 8.5 Total Bilirubin (0.0 - 1.0 mg/dL) 0.50 AST (15 - 37 IUnit/L) 15 ALT (30 - 65 IUnit/L) < 7 L Total Alk Phosphatase (20 - 125 IUnit/L) 48 B-Natriuretic Peptide (0 - 100 PG/ML) 802.0 H Total Protein (6.4 - 8.2 g/dL) 6.4 Albumin (3.4 - 5.0 g/dL) 3.20 L Triglycerides (40 - 150 mg/dL) 170 H Cholesterol (<200 mg/dL) 100 LDL Cholesterol [place] (0 - 100 mg/dL) 53.0 HDL Cholesterol (32 - 72 mg/dL) 21.1 L Cholesterol/HDL Ratio (3.43 - 4.97 RATIO) 4.74 Laboratory Tests 03/04 03/04 03/04 03/04 03/04 1743 1731 1637 1611 1539Coagulation INR (0.8 - 1.2) 1.5 H PTT ([place]) (25.0 - 39.5 Seconds) 30.8 PT Patient/Control Mix (9.3 - 12.9 16.4 HSECONDS) Activated Coag Time (74 - 137 SEC) 149 H 630 H 756 H 967 H 03/04 03/04 03/04 03/03 1508 1230 0235 2037 Coagulation INR (0.8 - 1.2) 1.3 H PTT ([place]) (25.0 - 39.5 Seconds) 80.6 H 39.0 PT Patient/Control Mix (9.3 - 12.9 SECONDS) 14.4 H Activated Coag Time (74 - 137 SEC) 834 H 179 H Laboratory Tests 03/04 03/04 03/03 1743 0235 2037 Hematology WBC (4.5 - 11.0 x10 3/uL) 9.1 5.4 5.0 RBC (4.00 - 5.60 x10 6/uL) 2.46 L 3.36 L 3.45 L Hgb (12.5 - 16.9 g/dL) 7.5 L 10.4 L 10.6 L Hct (37.5 - 50.7 %) 23.3 L 31.4 L 32.5 L MCV (81.0 - 99.0 fL) 94.7 93.5 94.2 MCH (27.0 - 33.0 pg) 30.5 31.0 30.7 MCHC (33.0 - 37.0 g/dL) 32.2 L 33.1 32.6 L RDW (11.5 - 14.5 %) 14.4 14.4 14.3 Plt Count (150 - 400 x10 3/uL) 109 L 117 L 118 L MPV (7.0 - 9.0 fL) 10.8 H 10.6 H 11.2 H Neut % (Auto) (56.0 - 77.0 %) 84.1 H 90.9 H 84.2 H Lymph % (Auto) (14.0 - 32.0 %) 6.5 L 5.0 L 6.4 L [place] % (Auto) (4.8 - 9.0 %) 8.1 2.8 L 7.8 Eos % (Auto) (0.3 - 3.7 %) 0.2 L 0.2 L 1.0 Baso % (Auto) (0.0 - 2.0 %) 0.1 0.2 0.4 Neut # (Auto) (2.0 - 7.6 x10 3/uL) 7.61 H 4.95 4.18 Lymph # (Auto) (1.0 - 3.8 x10 3/uL) 0.59 L 0.27 L 0.32 L [place] # (Auto) (0.1 - 0.8 x10 3/uL) 0.73 0.15 0.39 Eos # (Auto) (0.0 - 0.2 x10 3/uL) 0.02 0.01 0.05 Baso # (Auto) (0.0 - 0.2 x10 3/uL) 0.01 0.01 0.02 Abs Immat Gran (auto) (0.00 - 0.03 x10 3/uL) 0.09 H 0.05 H 0.01 Add Manual Diff NO NO NO Immature Gran % (0.0 - 2.0 %) 1.0 0.9 0.2 Nucleated RBC % (0 - 0 %) 0.0 0.0 0.0 Nucleated RBCs # (Man) (0.0 - 0.1 x10 3/uL) 0.00 0.00 0.00 Laboratory Tests 03/03 1952 Serology SARS-CoV-2 Ag (Rapid) (Negative) Negative Laboratory Tests 03/04 0354 Urines Urine Color (YEL/STRAW) YELLOW Urine Appearance (CLEAR) CLEAR Urine pH (5.0 - 7.0) 5.0 Ur Specific [place] (1.005 - 1.030) 1.043 H Urine Protein (NEGATIVE) 3+ H Urine Glucose (UA) (NEGATIVE) NEGATIVE Urine Ketones (NEGATIVE) 1+ H Urine Blood (NEGATIVE) NEGATIVE Urine Nitrite (NEGATIVE) NEGATIVE Urine Bilirubin (NEGATIVE) NEGATIVE Urine Urobilinogen (0.2 - 1.0 mg/dL) 0.2 Ur Leukocyte Esterase (NEGATIVE) NEGATIVE Urine RBC (0 - 3 RBC/HPF) 0-3 Urine WBC (0 - 3 WBC/HPF) 0-3 Ur Squamous Epith Cells (NONE SEEN /HPF) NONE SEEN Urine Bacteria (NONE SEEN /HPF) NONE SEEN Urine Mucus (NONE SEEN /LPF) TRACE Microbiology:03/03 1952 NASAL: MSSA Surveillance Screen - COMP03/03 1952 NASAL: MRSA DNA Surveillance Screen - COMP Radiology data:Recent Impressions:CAT SCAN - CT ANGIO CHEST 03/03 2342 Report Impression - Status: SIGNED Entered: 03/04/2023 0150 IMPRESSION: 1. No evidence of acute pulmonary embolism. 2. Emphysematous changes within both lungs. 3. A 1.5 x 0.8 cm nodular opacity within the right lower lobe. This may represent neoplastic etiology or possible scarring. As per 2017 Fleischner criteria guidelines, in low and high risk patients, CT of the chest, PET/CT, or tissue sampling should be performed in 3 months. Impression By: Ramón Roman M.D.ULTRASOUND - DUP EXTRACRANIAL SCOTTY 03/03 2350 Report Impression - Status: SIGNED Entered: 03/04/2023 0218 IMPRESSION: 1. Severe stenosis of the left proximal internal carotid artery by NASCET criteria. Consider CTA of the neck for complete assessment. 2. No significant stenosis within the proximal right internal carotid artery. REFERENCES: The degree of internal carotid artery stenosis is based on criteria defined by the IAC Vascular Testing criteria. Normal is no stenosis. Mild is less than 50% stenosis. Moderate is 50-69% stenosis. Severe is greater than 69% stenosis to near occlusion. Near occlusion is a markedly narrowed lumen. Total occlusion is no detectable patent lumen. Impression By: BuckKPRich Roman M.D.ULTRASOUND - DUP VEIN SCOTTY 03/04 0021 Report Impression - Status: SIGNED Entered: 03/04/2023 0206 IMPRESSION: Greater saphenous veins are patent. Vein mapping as described. Impression By: [email or web address] Og Villegas M.D.RADIOLOGY - XR CHEST 1 V 03/04 0651 Report Impression - Status: SIGNED Entered: 03/04/2023 0807 IMPRESSION: Mild bibasilar opacities which may represent atelectasis or infiltrate. Impression By: [email or web address] Og Spangler M.D.ULTRASOUND - DUP VEIN SCOTTY 03/04 0713 Report Impression - Status: SIGNED Entered: 03/04/2023 0805 IMPRESSION: No evidence of deep vein thrombosis. Impression By: BuckABDavid Esteves M.D. Results: labs reviewed, vital signs reviewed, rhythm personally rev'd, x-ray personally reviewed, current med profile rev'd Diagnosis, Assessment Plan Diagnosis, Assessment PlanConsultants: anesthesiology, cardiology, cardiovascular surgery, critical/osteopathy doctor, hospitalistPlan discussed with: consultants, nurse, interdisc care teamCritical care time: Minutes: 55 Code Status/Resusc. DiscussionResuscitation discussion: Discussed with: patient, familyCode status: full codeFree text DxA P: Problem List: Chest painWheezingDyspneaMultivessel coronary artery diseaseNon-ST elevation MIStatus post CABG x5 and ILAAElective ventilator dependenceAcute pulmonary insufficiency following major cardiothoracic surgeryAcute blood loss anemiaMetabolic acidosisLactic acidosisHypokalemiaHyperglycemiaChronic steroid dependenceSevere left carotid stenosisHistory of severe COPD Assessment and Plan: Tevin Nye is a 72-year-old gentleman with past medical history significant for hypertension, diabetes, dyslipidemia, former smoker quit in 2008, BPH, prostate cancer status postradiation severe COPD, not home oxygen dependent, severe left carotid stenosis, who was admitted to the medical floor with diagnosis of NSTEMI. He was found to have severe multivessel coronary disease on cardiac catheterization. Patient also had shortness of breath and wheezing. He was seen by pulmonology and started on steroid therapy along with nebulizer treatments. Patient underwent elective coronary artery bypass grafting surgery and received 4 jumps along with isolation of left atrial appendage. He came outof the OR with norepinephrine at 4 mcg and epinephrine at 2 mcg. EF was normal. Patient received parasternal block. Intraoperatively he received 1.5 L of crystalloids, 250 mL of Cell Saver, hemoglobin was 8.3 g/dL but on arrival his latest hemoglobin is 6.9 g/dL. Patient has been ordered 2 units of packed red cells. Intra-Op urine output was 425 mL and EBL was 100 mL. Patient received fentanyl and last neuromuscular blockade dose was at 3:15 PM. Patient was givenhydrocortisone 100 mg IV at 2:45 PM for chronic steroid dependence. He is currently on assist-control at 18 tidal volume 480 PEEP of 5 and 50% FiO2 and ismoving tidal volumes at 470+. Vital signs are stable with heart rate 82 sinus rhythm, blood pressure 95/41 mmHg, pulse ox 100% while on 50% FiO2 and respiratory rate is 14. Chest tube output is minimal at 3 mm each. Patient wasordered albumin 25% to 50 mL. Pupils are bilaterally symmetrical and reactive to light measuring 3 mm on each side. Lab work upon arrival in the CVICU room #2201 revealed a potassium of 3.3, glucose 230, creatinine 1.46 mg/dL, hemoglobinof 6.9 g/dL and hematocrit of 20%. Tevin Gonzalez is a 72 y.o. male with PMH of hypertension, dyslipidemia, diabetes, former smoker (quit 2008), BPH, prostate CA s/p radiation, COPD (uses inhaler at home, no home oxygen), and PE (November 2022 on eliquis) who presented to [facility] with chest pain, dyspnea on exertion, and NSTEMI. Coronary angiogram was done and revealed severe multivessel coronary artery disease. Patient was then transferred to [facility] for CV surgery evaluation and need for CABG. on the floor he had chest pain at rest and was transferred to the ICU for nitroglycerin drip and preoperative workup. Also noted to have chest pain - which he states is better and related to when he coughs. Currently without any pain. Patient underwent elective CABG x5 and isolation of left atrial appendage on 03/04/2023. Patient is postop day 0 after CABG x5 and ILAAHas severe left carotid stenosisOptimize systolic blood pressure to greater than 130 mmHgPatient was on chronic steroid therapy with Solu-MedrolAdrenal cortical support with hydrocortisone 25 mg IV every 8 hoursHas acute blood loss anemia with a hemoglobin of 6.9 g/dLTransfuse 2 units of packed red cellsPatient received Hydrocortisone 100 mg IV at 2:45 PM Start on Hydrocortisone 25 mg every 8 hoursAlso received parasternal blockCurrently on assist-control at 18 tidal volume 480 PEEP of 5 and 50% NgC8Rhndkb blood gas shows a pH of 7.28, pCO2 of 43 mmHg, pO2 of 175 mmHg and bicarbonate of 20 mmol with base excess at -6.5Patient has been ordered 1 amp of sodium bicarbonateRecheck ABGs in 1 hourChest tube output is minimal at 3 mL in both left pleural and mediastinal chest tubeBlood pressure is low upon arrival at 95/41 mm of HgOptimize blood pressure with Norepinephrine, titrate to a map of 70 or greaterAvoid sedationMonitor chest tube outputPupils are bilaterally symmetrical and reactive to light measuring 3 mm on each sideReplete potassium, check magnesium and ionized calciumFollow BMPGlycemic control with insulin drip, latest blood glucose is 230 mg/dL SCDs for DVT prophylaxis Noé Madrid MD [facility].32 PM at 1836 RPT #:[id number] OF REPORTKRDukmpibwnfst6976-98-89Y30:21:00G.PDOC2 [id number] for patient ngpfYICILGSRNAIFRR8472-34-46V50:36:52 [facility] 2023-03-04 17:30:00 [id number]/Berhane +/igl8JNaLE/MKu0ybMH0S08wBd5d fntucBgslSXY/GZBINNFVByOOhG8231-45-34M98:30:[address] [place] [address] PATIENT NAME: TEVIN NYE ADMIT DATE: 03/03/23ACCOUNT NO: [id number] ROOM NO: [facility] AGE: 72 REPORT TYPE: OPERATIVE REPORT SEX: M ADMITTING PHYSICIAN:Luci Villeda MD ATTENDING PHYSICIAN:Luci Villeda MD OPERATION DATE: 03/04/2023 PREOPERATIVE DIAGNOSES:1. Coronary artery disease.2. Chronic obstructive pulmonary disease. POSTOPERATIVE DIAGNOSES:1. Coronary artery disease.2. Chronic obstructive pulmonary disease. PROCEDURES:1. Coronary artery bypass graft surgery x4 (MCCORMICK to LAD, saphenous vein to diagonal, saphenous vein to marginal, saphenous vein to PDA).2. Amputation of left atrial appendage.3. Endoscopic vein harvest (right greater saphenous vein).4. Posterior pericardiotomy. SURGEON: Luci Villeda M.D. PIPE FITTER SUPERVISOR MAINTENANCE: Samuel Mcguire. ANESTHESIOLOGIST: Dr. Diallo. ANESTHESIA: General endotracheal anesthesia. ESTIMATED BLOOD LOSS: 100 mL INDICATIONS: Mr. Nye is a 72-year-old gentleman with severe triple-vessel coronary artery disease and ldnjtpex-wu-ofgtdb COPD. After due preop counseling, he was brought to the operating room today for surgical revascularization. FINDINGS:1. Vein was harvested from the left leg using endoscopic vein harvest technique. Vein was of marginal quality, measuring about 4-5 mm in size.2. Osteoporotic sternum.3. Good quality MCCORMICK measuring 2 mm in size with excellent flow.4. Normal pericardium without any intrapericardial adhesion, minimal intrapericardial fluid.5. LAD 2 mm, slightly diseased artery.6. Diagonal 2 mm, good quality artery.7. Marginal 2 mm, good quality artery.8. PDA 2 mm, good quality artery. PATIENT NAME: TEVIN NYE 9. Left atrial appendage was amputated half a cm from the base. This was then repaired with two layers of running pledgeted 4-0 Prolene suture.10. Posterior pericardiotomy was performed by excising 2 cm segment of the posterior pericardium. DESCRIPTION OF PROCEDURE: Mr. Nye was identified in the preoperative holding area and brought to the operating room and placed supine on the operating table. After induction of general endotracheal anesthesia, Valencia catheter, radial arterial line, antibiotics were placed. The patient's anteriortorso and both legs were then prepped and draped in standard surgical fashion. Vein was harvested from the left leg using endoscopic vein harvest technique. Following harvesting of vein, subcutaneous tissue was closed with 2-0 Vicryl andskin with 4-0 Vicryl. Simultaneously, median sternotomy was performed. The left internal mammary artery was harvested. The patient was heparinized. Pericardium was opened longitudinally. Pericardial well was created. Cardiopulmonary bypass was instituted using ascending aorta and 3-stage cannula in the right atrium. The patient was cooled to 34 degrees centigrade. Crossclamp was applied and the heart was arrested with 1.5 liters antegrade coldblood cardioplegia. Cardioplegia was repeated at interval of 10 minutes all through the duration of crossclamp. We began by exploring the PDA. This was good quality artery measuring 2 mm in size. Arteriotomy was performed with [place] Blade and extended with Ruiz scissors. A segment of previously harvested reverse saphenous vein was anastomosed in end-to-side manner using 7-0Prolene suture. Vein graft to PDA was brought along the right side of the heartand sized. Aortotomy was performed on the right aspect of the aorta using 4 mm punch. Proximal ends of the PDA graft was then performed using running 6-0 Prolene suture. Next, the left atrial appendage was amputated half a cm from the base. This was then repaired with two layers of running pledgeted 4-0 Prolene suture. Next, the marginal was explored. This was a good quality artery measuring 2 mm in size. Arteriotomy was performed with [place] Blade and extended with Ruiz scissors. A segment of previously harvested reverse saphenous vein was anastomosed in end-to-side manner using running 7-0 Prolene suture. Vein graft to marginal was brought along the left side of the heart andsized. Aortotomy was performed on the left aspect of the aorta using 4 mm punch. Proximal anastomosis of the marginal graft was then performed using running 6-0 Prolene suture. Rewarming was commenced at this stage. Next, the diagonal was explored. This was good quality artery, measuring 2 mm in size. Arteriotomy was performed with [place] Blade and extended with Ruiz scissors. Asegment of previously harvested reverse saphenous vein was anastomosed in end-to-side manner using running 7-0 Prolene suture. Vein graft to diagonal wasbrought along the left side of the heart and sized. Aortotomy was performed on the left aspect of the aorta using 4 mm punch. Proximal anastomosis of the diagonal graft was then performed using running 6-0 Prolene suture. Finally, LAD was explored. This was diseased artery measuring 2 mm in size. Arteriotomy was performed with [place] Blade and extended with Ruiz scissors. MCCORMICK was anastomosed in end-to-side manner using running 8-0 Prolene suture. MCCORMICK pedicle was tacked to epicardium using two interrupted 6-0 Prolene suture. A slit was made in the pericardium on the left aspect, so as to accommodate the MCCORMICK. Careful de-aeration was performed and the cross-clamp was released. One ventricular wire was placed. A 28-Belarusian chest tube was placed in the mediastinum, 28-angled chest tube was placed in the left pleural space. Once thepatient had temperature, de-airing maneuvers were repeated and the patient was weaned off cardiopulmonary bypass with minimal inotropic support. Heparin was reversed with protamine. Decannulation was uneventful. After confirming PATIENT NAME: TEVIN NYE hemostasis, the chest was closed in layers using stainless steel wires for the sternum, #1 Vicryl for the fascia, 2-0 Vicryl for the subcutaneous tissue and 4-0 Vicryl for the skin. The patient was transferred to intensive care unit, intubated in stable condition. Dictated By: Luci Villeda MD Date Dictated: 03/04/2023 17:30:44Date Transcribed: 03/04/2023 20:41:42AC/Francisco #: [id number] ID: [id number] by Mars Villeda MD On 03/05/2023 02:30:07 PM at 0230 PATIENT NAME: TEVIN NYE ueqrgz9465-39-79Y46:41:00G.[id number] lable for patient ujmxORFKXHVBIJNDZI0167-51-19F99:30:43 [facility] 2023-03-04 17:30:00 [id number] I8tNK9RamWXFJIpSU7URR0zlMZvLE 1xKvYlM6jxd6WfwHh4Q8W91wjuH3548-67-43U74:30:00 [facility] ([facility])Clinical NoteREPORT#:[id number] REPORT STATUS: SignedDATE:03/04/23 TIME: 1730 PATIENT: TEVIN NYE UNIT #: [id number]#: [id number] ROOM[address]DOB: [birth year] AGE: 72 SEX: M ATTEND: Luci Villeda MDADM AUTHOR: Sameul Mcguire MD * ALL edits or amendments must be made on the electronic/computer document * Clinical NoteNote: STS RISK SCORES Procedure: Isolated CABG CALCULATE Risk of Mortality: 4.619% Renal Failure: 3.747% Permanent Stroke: 1.355% Prolonged Ventilation: 17.368% DSW Infection: 0.547% Reoperation: 2.463% Morbidity or Mortality: 24.062% Short Length of Stay: 18.785% Long Length of Stay: 13.176% at 1730 RPT #:[id number] OF REPORTCLClinical gooh0050-17-67Z29:30:00G.NJAL14431359-1244PSDtfww able for patient rmfzKHUYEIGRZVTWHM7419-81-47C19:31:11 [facility] 2023-03-04 17:19:00 [id number] Dccbgvy5epdL2H1jc5lQv99/v5FUi XE17kDP/7v/S6/VuIb+jmuDUk6H5646-26-79J37:19:00 [facility] ([facility]AREBrief Op NoteREPORT#:[id number] REPORT STATUS: SignedDATE:03/04/23 TIME: 1719 PATIENT: TEVIN NYE UNIT #: [id number]#: [id number] [address] [birth year] AGE: 72 SEX: M ATTEND: Luci Villeda MDADM AUTHOR: Luci Villeda MD * ALL edits or amendments must be made on the electronic/computer document * See AddendumOp/Inv Proc Note - BriefPre-procedure diagnosis:CADCOPDPost-procedure diagnosis: same as pre procedure dxProcedures performed:CABG x 4 (MCCORMICK-LAD,SVG-Renea, SVG-OM, SVG-PDA)ALAAEVH (LGSV)Posterior pericardiotomyPrimary Surgeon:ChristianaAssistant(s): ByrneFindings:LAD-2mm diseased areteryComplications: noneEstimated blood loss in ml's: 200 ccSpecimens removed/altered: ELIAS at 1724 Addendum 1: 03/04/231728 by Samuel Mcguire MD I assisted Dr Villeda with the aparicio features of this operation including CABGs and Jagdish Mcguire MD at 1729 RPT #:[id number] OF REPORTOPOperative rvbfyq6889-13-56G60:19:00G.[id number] ilable for patient dcgyNYDMBNLQANITTK4360-51-78M58:24:20 [facility] 2023-03-04 17:17:00 [id number] 8vnDs9oWOUDjqH0aFGo+agC3CkT5i bQDA92Lvm5Q3Ewpz2S3J3EgoZqx2886-31-56Y42:17:19967 7-[address] [place] [address] PATIENT NAME: TEVIN NYE ADMIT DATE: 03/03/23ACCOUNT NO: [id number] ROOM NO: G.2201 AGE: 72 REPORT TYPE: eECHOCARDIOGRAM REPORT SEX: M ADMITTING PHYSICIAN:Luci Villeda MD ATTENDING PHYSICIAN:Luci Villeda MD *[place], [place] [address]Phone: Han: [phone] Transthoracic Echocardiogram Patient: Tevin NyeStudy Date: 03/04/2023 BP: 109 / 55 Location: COCCLURN: [id number] : 1950 Age: 72 Height: 67 in / 170.2 cmAccession#: [id number] Gender: M Weight: 181.6 lb / 82.6 kgBMI/BSA: 28.5 kg/m 2 / 1.94 m 2 *Ordering Physician: * Luci Villeda MD *Interpreting Physician: * Anuj Sylvester MD*Financial Cost Analyst: * Tori Gunn Indications: Pre-Op CABG. Study data: Transthoracic echocardiogram. Procedure: Transthoracicechocardiography was performed. Image quality was adequate. Intravenouscontrast (Optison) was administered. Complete 2D, complete spectralDoppler, and color Doppler. Location: CVICU. Patient status:Inpatient. Patient room number: 2201. Study status: Routine. Rhythm:Normal sinus rhythm. Findings Left ventricle: The cavity size is normal. Wall thickness is normal.Systolic function is mildly reduced. The estimated ejection fraction is40-44%. Regional wall motion abnormalities: Severe hypokinesis of theapical anterior, apical septal, apical lateral, and apical myocardium;hypokinesis of the basal-mid anteroseptal myocardium. Doppler parametersPATIENT NAME: TEVIN NYE are consistent with abnormal left ventricular relaxation (grade 1diastolic dysfunction).Right ventricle: Estimated TAPSE is 2.8 cm. The cavity size is normal.Systolic function is normal. Systolic pressure is moderately increased.Left atrium: The atrium is normal in size.Right atrium: The atrium is normal in size.Aorta: Aortic root: The aortic root is normal in size.Aortic valve: The valve is structurally normal. The valve istrileaflet. There is no evidence of stenosis. There is noregurgitation.Mitral valve: The valve is structurally normal. There is noevidence of stenosis. There is mild regurgitation.Tricuspid valve: Estimated right ventricular systolic pressure is 46mmHg. The valve is structurally normal. There is moderateregurgitation.Pulmonic valve: The valve is structurally normal. There is noregurgitation.Pericardium: A trivial pericardial effusion is identified.Pulmonary arteries:The main pulmonary artery is normal-sized.Systemic veins:Inferior vena cava: The vessel is dilated. The respirophasic diameterchanges are in the normal range (= 50%). Inferior vena cava diameter is2.1 cm. Measurements Left ventricle Value Ref PHIL, LAX 5.4 cm 4.2 - 5.8 ESD, LAX 3.5 cm 2.5 - 4.0 ESD/bsa, LAX 1.8 cm/m 2 1.3 - 2.1 FS, LAX 35 % 25 - 43 ESD/bsa major 3.9 cm/m 2 --------- ax, A4C PHIL/bsa minor 3.9 cm/m 2 --------- ax, A4C PHIL major ax, 8.5 cm --------- A2C ESD major ax, 7.7 cm --------- A2C PHIL/bsa major 4.4 cm/m 2 --------- ax, A2C ESD/bsa major 3.9 cm/m 2 --------- ax, A2C PW, ED 1.0 cm 0.6 - 1.0 IVS/PW, ED 1.01 --------- EF 63 % 52 - 72 E', lat mercedes, TDI 7.9 cm/sec >=10.0 E/e', lat mercedes, 10 --------- TDI E', med mercedes, TDI 6.9 cm/sec >=7.0 E/e', med mercedes, 11 --------- TDIPATIENT NAME: TEVIN NYE E', avg, TDI 7.4 cm/sec --------- E/e', avg, TDI 11 <=14 LVOT Value Ref Diam, S 1.99 cm --------- Area 3.1 cm 2 --------- Peak kirby, S 0.88 m/sec --------- Mean kirby, S 0.63 m/sec --------- VTI, S 19.9 cm --------- Peak grad, S 3 mm Hg --------- Mean grad, S 2 mm Hg --------- SV 62 ml --------- Qs 4.94 L/min --------- Qs/bsa 2.5 L/(min-m 2) --------- SV/bsa 32 ml/m 2 --------- Ventricular septum Value Ref IVS, ED 1.0 cm 0.6 - 1.0 Right ventricle Value Ref PHIL, LAX 3.0 cm --------- TAPSE, MM 2.8 cm 1.7 - 3.1 Pressure, S 46 mm Hg --------- RVOT Value Ref Peak v, S 0.72 m/sec --------- Peak grad, S 2 mm Hg --------- Left atrium Value Ref AP dim, ES 3.77 cm 3.00 - 4.00 Vol/bsa, ES, 1-p 15 ml/m 2 12 - 37 A4C Vol, ES, 2-p 42 ml --------- Vol/bsa, ES, 2-p 21 ml/m 2 16 - 34 Vol/bsa, ES, A/L 17 ml/m 2 16 - 34 AP dim, ES MM 3.2 cm 3.0 - 4.0 LA/Ao root 0.9 --------- ratio, MM Right atrium Value Ref Area, ES 14 cm 2 10 - 18 SI dim, ES, A4C 4.7 cm 3.4 - 5.3 SI dim/bsa, ES, 2.4 cm/m 2 1.8 - 3.0 A4C Vol, ES, A/L 36 ml --------- Vol, ES, 1-p A4C 35 ml --------- Vol/bsa, ES, 1-p 18 ml/m 2 11 - 39 A4C Aortic valve Value Ref Leaflet sep, MM 1.65 cm --------- Peak v, S 1.1 m/sec --------- Mean v, S 0.84 m/sec ---------PATIENT NAME: TEVIN NYE VTI, S 24.2 cm --------- Mean grad, S 3.0 mm Hg --------- Peak grad, S 4.9 mm Hg --------- LVOT/AV, VTI 0.82 --------- ratio MEL, VTI 2.55 cm 2 --------- LVOT/AV, Vpeak 0.8 --------- ratio MEL, Vmax 2.48 cm 2 --------- Mitral valve Value Ref Peak E 0.07 m/sec --------- Peak A 1.2 m/sec --------- Mean v, D 0.83 m/sec --------- VTI leaflet 34.1 cm --------- coapt Decel time 251 ms --------- PHT 82 ms --------- Mean grad, D 2.9 mm Hg --------- Peak grad, D 6.1 mm Hg --------- Peak E/A ratio 0.64 --------- MVA, PHT 2.7 cm 2 --------- Pulmonic valve Value Ref MN v, ED 0.8 m/sec --------- Tricuspid valve Value Ref TR peak v 3.07 m/sec <=2.8 Peak RV-RA grad, 38 mm Hg --------- S Aortic root Value Ref Root diam, ED MM 3.55 cm --------- Pulmonary artery Value Ref Pressure, S 41.8 mm Hg --------- Systemic veins Value Ref Estimated CVP 8 mm Hg --------- Conclusions Summary: 1. Left ventricle: The cavity size is normal. Wall thickness is normal. Systolic function is mildly reduced. The estimated ejection fraction is 40-44%. Doppler parameters are consistent with abnormal left ventricular relaxation (grade 1 diastolic dysfunction).2. Regional wall motion abnormality: Severe hypokinesis of the apical anterior, apical septal, apical lateral, and apical myocardium; hypokinesis of the basal-mid anteroseptal myocardium.3. Right ventricle: Systolic pressure is moderately increased.4. Mitral valve: There is mild regurgitation.PATIENT NAME: TEVIN NYE 5. Tricuspid valve: Estimated right ventricular systolic pressure is 46 mmHg. There is moderate regurgitation.6. Pericardium, extracardiac: A trivial pericardial effusion is identified.7. Inferior vena cava: The vessel is dilated. The respirophasic diameter changes are in the normal range (= 50%). Inferior vena cava diameter is 2.1 cm. Prepared and electronically signed by Anuj Sylvester MD03/04/2023 17:17 at 1717 PATIENT NAME: TEVIN NYE :17:0 0G.[id number] for patient qbvzGQWVQLLWCZFDNU4874-71-41Q54:18:20 [facility] 2023-03-04 12:46:00 [id number] 3I0cci8V0LMHAO5O1ZHBgR0rxAc4V uApfQ9oDoOfN6PHdRJCXd4goTjX7777-20-79P92:46:00 [facility] ([facility])Pulmonology Progress NoteREPORT#:[id number] REPORT STATUS: SignedDATE:03/04/23 TIME: 1246 PATIENT: TEVIN NYE UNIT #: [id number]#: [id number] [address] [birth year] AGE: 72 SEX: M ATTEND: Luci Villeda MDADM AUTHOR: Sharmila Alan * ALL edits or amendments must be made on the electronic/computer document * SubjectiveComments:On room air, feels better, chest pain resolved with higher NTG gtt dose, on heparin gtt ROSAll systems rev neg: except as marked Objective GeneralVS/I O:Last Documented: Result Date Time Pulse Ox 96 03/04 1130 B/P 114/56 03/04 1130 B/P Mean 81 03/04 1130 Pulse 79 03/04 1130 Resp 17 03/04 1130 O2 Delivery High flow nasal cannula 03/04 0836 O2 Flow Rate 4 03/04 0836 Temp 36.3 03/04 0045 24 hour I O ending at 0700: 03/04 0700 03/03 1900 Intake Total Output Total Balance Patient 83 kg Weight Weight Stated/Reported Measurement Method PATIENT WEIGHT: Weight (lb): 182Weight (oz): 15.74Weight (kg): 83.000 Medications:Active Meds + DC'd Last 24 HrsFentanyl Citrate (SUBLIMAZE) 0 .STK-MED ONE .ROUTE (DC) Papaverine HCl (PAPAVERINE HCL) 0 .STK-MED ONE IV (DC) Albumin Human (ALBUMINAR-25%) 100 ML .STK-MED ONE IV (DC) Fentanyl Citrate (SUBLIMAZE) 0 .STK-MED ONE IV (DC) Clindamycin Phosphate (CLEOCIN 900 MG/NS 50 ML) 50 ML .STK-MED ONE IV (DC) Sodium Chloride (SODIUM CHLORIDE 0.9%) 250 ML .STK-MED ONE IV (DC) Vancomycin HCl (Vancomycin 1,250 mg Inj (B2)) 0 .STK-MED ONE IV (DC) Insulin Human Lispro (HUMALOG) 0 AC HS SUBQ Rocuronium [place] (ZEMURON) 0 .STK-MED ONE IV (DC) Fentanyl Citrate (SUBLIMAZE) 0 .STK-MED ONE .ROUTE (DC) Dexamethasone Sodium Phosphate (DECADRON) 0 .STK-MED ONE .ROUTE (DC) Heparin Sodium (HEPARIN SODIUM) 0 .STK-MED ONE .ROUTE (DC) Lidocaine HCl (XYLOCAINE) 0 .STK-MED ONE .ROUTE (DC) Ondansetron HCl (ZOFRAN) 0 .STK-MED ONE .ROUTE (DC) Rocuronium [place] (ZEMURON) 0 .STK-MED ONE IV (DC) Fentanyl Citrate (SUBLIMAZE) 0 .STK-MED ONE .ROUTE (DC) Propofol (DIPRIVAN 200MG/20ML INJECTION) 20 ML .STK-MED ONE IV (DC) Albumin Human (ALBUMINAR-25%) 100 ML .STK-MED ONE IV (DC) Heparin Sodium (HEPARIN SODIUM) 0 .STK-MED ONE .ROUTE (DC) Mannitol (Mannitol 20%) 500 ML .STK-MED ONE IV (DC) Sodium Chloride (SODIUM CHLORIDE 0.9%) 100 ML .STK-MED ONE IV (DC) Lidocaine HCl (XYLOCAINE IV) 0 .STK-MED ONE IV (DC) Magnesium Sulfate (MAGNESIUM SULFATE) 0 .STK-MED ONE IV (DC) Phenylephrine HCl (JESUS-SYNEPHRINE 10MG/ML AMP) 0 .STK-MED ONE .ROUTE (DC) Sodium Bicarbonate (SODIUM BICARBONATE) 0 .STK-MED ONE IV (DC) Dexamethasone Sodium Phosphate (DECADRON) 0 .STK-MED ONE .ROUTE (DC) Etomidate (AMIDATE) 0 .STK-MED ONE IV (DC) Lidocaine HCl (XYLOCAINE) 0 .STK-MED ONE .ROUTE (DC) Ondansetron HCl (ZOFRAN) 0 .STK-MED ONE .ROUTE (DC) Rocuronium [place] (ZEMURON) 0 .STK-MED ONE IV (DC) Succinylcholine Chloride (QUELICIN FLIPTOP) 0 .STK-MED ONE IV (DC) Epinephrine HCl (EPINEPHrine 4 mg/D5W 250 mL) 250 ML .STK-MED ONE IV (DC) Heparin Sodium (HEPARIN SODIUM) 0 .STK-MED ONE .ROUTE (DC) Insulin Human Regular (HumuLIN R 100 UNITS/NS 100ML) 100 ML .STK-MED ONE IV (DC) Norepinephrine Bitartrate (NOREPINEPHRINE 8 MG/NS 250 ML) 250 ML .STK-MED ONE IV (DC) Aminocaproic Acid (AMICAR) 0 .STK-MED ONE IV (DC) Calcium Chloride (CALCIUM CHLORIDE) 0 .STK-MED ONE IV (DC) Magnesium Sulfate (MAGNESIUM SULFATE) 0 .STK-MED ONE .ROUTE (DC) Nitroglycerin/Dextrose (NITROGLYCERIN 50,000MCG/D5W 250ML) 250 ML .STK-MED ONE IV (DC) Protamine Sulfate (PROTAMINE SULFATE) 0 .STK-MED ONE IV (DC) Ropivacaine (NAROPIN 0.5% 150 MG/30mL) 0 .STK-MED ONE .ROUTE (DC) Sodium Chloride (SODIUM CHLORIDE 0.9%) 100 ML .STK-MED ONE IV (DC) Morphine Sulfate (morphine SULFATE) 1 MG ONCE ONE IV (DC) Clindamycin Phosphate (CLEOCIN 900 MG/NS 50 ML) 50 ML PREOP ONCALL IV (CKD) Metoprolol Tartrate (LOPRESSOR) 6.25 MG ONCE ONE PO (DC) Vancomycin HCl (Vancomycin 1,250 mg Inj (B2)) 1,250 MG PREOP ONCALL IV (CKD) Sodium Chloride (SODIUM CHLORIDE 0.9%) 250 MLVerapamil HCl (ISOPTIN) 16.6 MG .Q24H ONE IV (CKD) Heparin Sodium (Porcine) (HEPARIN SODIUM) 1,660 UNIT Sodium Bicarbonate (SODIUM BICARBONATE) 0.7 ML Nitroglycerin/Dextrose (NITROGLYCERIN 50MG/D5W 250ML) 8.3 MG Lactated Ringer's (LACTATED RINGERS) 949.5 MLIopamidol (ISOVUE-300 100ML) 100 ML .STK-MED ONE IV (DC) Budesonide (PULMICORT RESPULES) 0.5 MG RTBID INH Formoterol Fumarate (PERFOROMIST) 20 MCG RTBID NEB Doxycycline Hyclate (VIBRAMYCIN) 100 MG Q12HR IV Sodium Chloride (SODIUM CHLORIDE 0.9% 100 ML) 100 MLGuaifenesin (MUCINEX 600MG TAB SA) 600 MG Q12HR PO Ipratropium [place] (ATROVENT) 500 MCG RTQ6H INH Mupirocin (BACTROBAN 2% 22 GM OINTMENT) 1 APPLIC BID NASAL Methylprednisolone Sodium Succinate (Solu-Medrol 40 MG Vial) 40 MG Q8H IV Sterile Water (WATER FOR INJECTION) 1 ML ASDIR PRN IV Acetaminophen (TYLENOL EXTRA STRENGTH) 1,000 MG PREOP ONCALL PO (CKD) Albuterol Sulfate (ALBUTEROL SULFATE) 2.5 MG RTONCE ONE NEB (DC) Gabapentin (NEURONTIN) 200 MG PREOP ONCALL PO (CKD) Heparin Sodium (HEPARIN 5000 UNITS/ML) 0 ASDIR PRN IV Heparin Sodium (Porcine) (HEPARIN 25,000 UNITS/ 1/2NS 500ML) 500 ML ASDIR IV (CKD) Nitroglycerin/Dextrose (NITROGLYCERIN 50,000MCG/D5W 250ML) 250 ML ASDIR IV Physical ExamGeneral appearance: alert, awake, oriented, no acute distressHead/eyes: atraumatic, normocephalic, PERRLNeck: supple/no meningismus, no bruit/NL carotids, no JVD, no lymphadenopathyCardiovascular: normal S1/S2, no rub, no gallopRespiratory/chest: decreased breath sounds, prolonged exp phase, wheezing, symmetric expansionAbdomen: soft, normal bowel sounds, no distention, no guardingExtremities: no clubbing, no cyanosisNeuro/SALES ASSISTANT: alert, oriented X 3, no motor deficitsSkin: dry, normal colorPsychiatry: normal affect, no hallucinations ResultsFindings/Data:Laboratory Tests 03/04/23 0354:[Embedded Image Not Available] 03/04/23 0235:[Embedded Image Not Available] 03/03/232036:[Embedded Image Not Available]Laboratory Tests 03/04 1228 Blood Gas O2 Saturation (90 - 100 %) 100.0 ABG pH (7.35 - 7.45) 7.390 ABG pCO2 (35.0 - 45 mmHg) 36.7 ABG pO2 (80 - 100.0 mmHg) 449.5 *H ABG HCO3 (22.0 - 26.0 MMOL/L) 22.2 ABG Total CO2 23.3 ABG Base Excess (-4.0 - 4.0 MMOL/L) -2.4 ABG Hematocrit (37.5 - 50.7 %) 29 L ABG Hemoglobin (12.5 - 16.9 G/DL) 9.8 L Sodium (134 - 147 mmol/L) 140 Potassium (3.4 - 5.0 mmol/L) 4.4 Chloride (100 - 108 mmol/L) 107 Ionized Calcium (1.12 - 1.32 MMOL/L) 1.15 Lactic Acid (0.9 - 1.7 mmol/l) 0.7 L Laboratory Tests 03/04 03/04 03/04 03/03 1228 0726 3114 2037 Chemistry Sodium (134 - 147 mEq/L) 140 Potassium (3.4 - 5.0 mEq/L) 4.6 Chloride (100 - 108 mEq/L) 106 Carbon Dioxide (21 - 33 mEq/l) 22 Anion Gap (0 - 20) 17 BUN (7 - 18 mg/dL) 27 H Creatinine (0.6 - 1.3 mg/dL) 1.3 POC Creatinine (0.8 - 1.3 mg/dL) 1.3 Glomerular Filtr Rate (70 - 80) 58.7 L Glucose (70 - 110 mg/dL) 295 H POC Glucose (mg/dL) (70 - 110 MG/DL) 399 H Hemoglobin A1c (4.8 - 6.0 %A1C) 7.1 H Calcium (8.0 - 10.5 mg/dL) 8.4 Magnesium (1.80 - 2.40 mg/dL) 1.76 L Total Bilirubin (0.0 - 1.0 mg/dL) 0.50 AST (15 - 37 IUnit/L) 17 ALT (30 - 65 IUnit/L) 8 L Total Alk Phosphatase (20 - 125 IUnit/L) 45 Troponin I High Sens (0 - 54 ng/L) 617 *H Total Protein (6.4 - 8.2 g/dL) 6.0 L Albumin (3.4 - 5.0 g/dL) 3.00 L 03/03 Chemistry Sodium (134 - 147 mEq/L) 142 Potassium (3.4 - 5.0 mEq/L) 4.2 Chloride (100 - 108 mEq/L) 109 H Carbon Dioxide (21 - 33 mEq/l) 28 Anion Gap (0 - 20) 9 BUN (7 - 18 mg/dL) 24 H Creatinine (0.6 - 1.3 mg/dL) 1.2 Glomerular Filtr Rate (70 - 80) 64.7 L Glucose (70 - 110 mg/dL) 148 H Calcium (8.0 - 10.5 mg/dL) 8.5 Total Bilirubin (0.0 - 1.0 mg/dL) 0.50 AST (15 - 37 IUnit/L) 15 ALT (30 - 65 IUnit/L) < 7 L Total Alk Phosphatase (20 - 125 IUnit/L) 48 B-Natriuretic Peptide (0 - 100 PG/ML) 802.0 H Total Protein (6.4 - 8.2 g/dL) 6.4 Albumin (3.4 - 5.0 g/dL) 3.20 L Triglycerides (40 - 150 mg/dL) 170 H Cholesterol (<200 mg/dL) 100 LDL Cholesterol [place] (0 - 100 mg/dL) 53.0 HDL Cholesterol (32 - 72 mg/dL) 21.1 L Cholesterol/HDL Ratio (3.43 - 4.97 RATIO) 4.74 Laboratory Tests 03/040 234 2036 Coagulation INR (0.8 - 1.2) 1.3 H PTT ([place]) (25.0 - 39.5 Seconds) 80.6 H 39.0 PT Patient/Control Mix (9.3 - 12.9 SECONDS) 14.4 H Activated Coag Time (74 - 137 SEC) 179 H Laboratory Tests 03/04 Hematology WBC (4.5 - 11.0 x10 3/uL) 5.4 5.0 RBC (4.00 - 5.60 x10 6/uL) 3.36 L 3.45 L Hgb (12.5 - 16.9 g/dL) 10.4 L 10.6 L Hct (37.5 - 50.7 %) 31.4 L 32.5 L MCV (81.0 - 99.0 fL) 93.5 94.2 MCH (27.0 - 33.0 pg) 31.0 30.7 MCHC (33.0 - 37.0 g/dL) 33.1 32.6 L RDW (11.5 - 14.5 %) 14.4 14.3 Plt Count (150 - 400 x10 3/uL) 117 L 118 L MPV (7.0 - 9.0 fL) 10.6 H 11.2 H Neut % (Auto) (56.0 - 77.0 %) 90.9 H 84.2 H Lymph % (Auto) (14.0 - 32.0 %) 5.0 L 6.4 L [place] % (Auto) (4.8 - 9.0 %) 2.8 L 7.8 Eos % (Auto) (0.3 - 3.7 %) 0.2 L 1.0 Baso % (Auto) (0.0 - 2.0 %) 0.2 0.4 Neut # (Auto) (2.0 - 7.6 x10 3/uL) 4.95 4.18 Lymph # (Auto) (1.0 - 3.8 x10 3/uL) 0.27 L 0.32 L [place] # (Auto) (0.1 - 0.8 x10 3/uL) 0.15 0.39 Eos # (Auto) (0.0 - 0.2 x10 3/uL) 0.01 0.05 Baso # (Auto) (0.0 - 0.2 x10 3/uL) 0.01 0.02 Abs Immat Gran (auto) (0.00 - 0.03 x10 3/uL) 0.05 H 0.01 Add Manual Diff NO NO Immature Gran % (0.0 - 2.0 %) 0.9 0.2 Nucleated RBC % (0 - 0 %) 0.0 0.0 Nucleated RBCs # (Man) (0.0 - 0.1 x10 3/uL) 0.00 0.00 Laboratory Tests 03/03 1952 Serology SARS-CoV-2 Ag (Rapid) (Negative) Negative Laboratory Tests 03/04 354 Urines Urine Color (YEL/STRAW) YELLOW Urine Appearance (CLEAR) CLEAR Urine pH (5.0 - 7.0) 5.0 Ur Specific [place] (1.005 - 1.030) 1.043 H Urine Protein (NEGATIVE) 3+ H Urine Glucose (UA) (NEGATIVE) NEGATIVE Urine Ketones (NEGATIVE) 1+ H Urine Blood (NEGATIVE) NEGATIVE Urine Nitrite (NEGATIVE) NEGATIVE Urine Bilirubin (NEGATIVE) NEGATIVE Urine Urobilinogen (0.2 - 1.0 mg/dL) 0.2 Ur Leukocyte Esterase (NEGATIVE) NEGATIVE Urine RBC (0 - 3 RBC/HPF) 0-3 Urine WBC (0 - 3 WBC/HPF) 0-3 Ur Squamous Epith Cells (NONE SEEN /HPF) NONE SEEN Urine Bacteria (NONE SEEN /HPF) NONE SEEN Urine Mucus (NONE SEEN /LPF) TRACE Microbiology Date/Time Procedure - Status Source Growth 03/03 1952 MSSA Surveillance Screen - COMP NASAL 03/03 1952 MRSA DNA Surveillance Screen - COMP NASAL Radiology data:Recent Impressions:CAT SCAN - CT ANGIO CHEST 03/03 2342 Report Impression - Status: SIGNED Entered: 03/04/2023 0150 IMPRESSION: 1. No evidence of acute pulmonary embolism. 2. Emphysematous changes within both lungs. 3. A 1.5 x 0.8 cm nodular opacity within the right lower lobe. This may represent neoplastic etiology or possible scarring. As per 2017 Fleischner criteria guidelines, in low and high risk patients, CT of the chest, PET/CT, or tissue sampling should be performed in 3 months. Impression By: Ramón Roman M.D.ULTRASOUND - DUP EXTRACRANIAL SCOTTY 03/03 2350 Report Impression - Status: SIGNED Entered: 03/04/2023 0218 IMPRESSION: 1. Severe stenosis of the left proximal internal carotid artery by NASCET criteria. Consider CTA of the neck for complete assessment. 2. No significant stenosis within the proximal right internal carotid artery. REFERENCES: The degree of internal carotid artery stenosis is based on criteria defined by the [employer] Vascular Testing criteria. Normal is no stenosis. Mild is less than 50% stenosis. Moderate is 50-69% stenosis. Severe is greater than 69% stenosis to near occlusion. Near occlusion is a markedly narrowed lumen. Total occlusion is no detectable patent lumen. Impression By: Ramón Roman M.D.ULTRASOUND - DUP VEIN SCOTTY 03/04 0021 Report Impression - Status: SIGNED Entered: 03/04/2023 0206 IMPRESSION: Greater saphenous veins are patent. Vein mapping as described. Impression By: [email or web address] - Morales Villegas M.D.RADIOLOGY - XR CHEST 1 V 03/04 0651 Report Impression - Status: SIGNED Entered: 03/04/2023 0807 IMPRESSION: Mild bibasilar opacities which may represent atelectasis or infiltrate. Impression By: [email or web address] - Bon Spangler M.D.ULTRASOUND - DUP VEIN SCOTTY 03/04 0713 Report Impression - Status: SIGNED Entered: 03/04/2023 0805 IMPRESSION: No evidence of deep vein thrombosis. Impression By: [email or web address] - Ezekiel Esteves M.D. Results: CT results reviewed, x-ray personally reviewed Diagnosis, Assessment PlanFree Text A P:1- Acute COPD exacerbation2- Recent pulmonary embolism on Eliquis3- NSTEMI/Multivessel coronary artery disease5- Hypertension6- History of tobacco use7- Obesity - Nasal cannula O2 as needed, titrate to keep sats above 94%. On room air- Continue IV Solu-Medrol 40 mg every 8 hours- IV Doxycycline- Pulmicort Perforomist and Atrovent nebulizers- Mucinex every 12 hours- CTA chest reviewed, no PE, emphysema, small effusions, RLL 1.[address] chest in 6-8 weeks. Patient informed - Lower extremity Doppler negative for DVT- Patient has increased risk for postoperative pulmonary complications due to underlying COPD- Will follow perioperatively- D/W CTS at 1252 RPT #:[id number] OF REPORTPRProgress [id number]:46:00G.[id number] able for patient [id number]:53:20 HCACL 2023-03-04 07:07:00 [id number]/hXoSmtvEZgcjs [id number]/7ZMQz/[id number]:[id number] [id number] [address] PATIENT NAME: TEVIN NYE ADMIT DATE: 03/03/23ACCOUNT NO: [id number] ROOM NO: [facility] AGE: 72 REPORT TYPE: eELECTROCARDIOGRAM REPORT SEX: M ADMITTING PHYSICIAN:Luci Villeda MD ATTENDING PHYSICIAN:Luci Villeda MD Order:[id number] Reason : chest pain Test Date/Time Stamp:FriMar 04 2023 07:07:35Blood Pressure : / mmHGVent. Rate : 083 BPM Atrial Rate : 083 BPM P-R Int : 182 ms QRS Dur : 090 ms QT Int : 366 ms P-R-T Axes : 064 -61 133 degrees QTc Int : 430 ms Normal sinus rhythmLeft axis deviationNonspecific ST and T wave abnormalityAbnormal ECGNo previous ECGs availableConfirmed by MD HIGINIO, ANUJ ([id number]) on 03/04/2023 5:14:35 PM Referred By: Self Referred Confirmed by:ANUJ SYLVESTER MD at 1714 PATIENT NAME: TEVIN NYE .[id number] AVAvailable for patient [id number]:14:50 [facility] 2023-03-04 06:57:00 [id number] SOBWAPHsaa/[id number] [id number]:57:00 [facility] ([facility])Cardiology Progress NoteREPORT#:[id number] REPORT STATUS: SignedDATE:03/04/23 TIME: 06 PATIENT: TEVIN NYE UNIT #: [id number]#: [id number] ROOM/BED: [facility]-1DOB: [birth year] AGE: 72 SEX: M ATTEND: Luci Villeda MDADM AUTHOR: Anuj Sylvester MD * ALL edits or amendments must be made on the electronic/computer document * SubjectiveChief complaint:No change Objective GeneralVS/I O:24 hour I O ending at 0700: 03/04 0700 03/03 1900 Intake Total Output Total Balance Patient 83 kg Weight Weight Stated/Reported Measurement Method Vital Signs: Date Time Temp Pulse Resp B/P B/P Pulse O2 O2 Flow FiO2 Mean Ox Delivery Rate 03/04 0202 96 Nasal 4 cannula 03/04 0145 91 20 109/55 76 97 03/04 0140 90 22 112/58 78 96 03/04 0135 90 20 127/62 87 97 03/04 0130 89 22 119/61 84 96 03/04 0125 91 16 127/68 94 99 03/04 0120 96 27 117/83 96 98 03/04 0110 89 22 111/53 78 96 03/04 0105 92 21 145/68 98 97 03/04 0100 93 22 135/65 93 98 03/04 0055 92 19 139/66 95 97 03/04 0054 91 03/04 0050 92 22 136/66 94 95 03/04 0045 93 16 140/67 96 97 03/04 0040 95 24 146/69 99 98 03/04 0035 97 136/63 91 99 / 0030 95 13 139/63 92 98 03/04 0025 93 147/70 99 100 03/04 0020 96 157/73 105 99 03/04 0015 93 156/73 107 98 03/04 0011 92 156/74 107 97 03/04 0010 93 03/03 2320 99 27 142/65 97 100 03/03 2315 97 22 156/74 106 100 03/03 2310 100 22 139/69 98 100 03/03 2308 98.4 98 13 141/68 0.0 100 Nasal cannula 03/03 2305 99 30 141/68 97 100 03/03 2300 94 28 144/70 101 96 03/03 2255 91 21 102/53 76 91 03/03 2250 88 21 113/54 78 95 03/03 2245 91 22 124/57 84 91 03/03 2240 92 17 130/61 89 95 03/03 2235 93 21 145/69 99 97 03/030 92 17 139/65 94 95 03/035 92 13 148/69 99 96 03/030 96 18 139/66 95 99 03/035 93 27 145/69 99 97 03/030 92 21 140/67 96 95 03/035 93 21 137/65 94 94 03/030 92 19 138/65 93 93 03/035 94 17 107/57 76 93 03/03 2152 97 23 105/57 77 93 03/030 97 27 131/58 84 93 03/03 2145 96 20 96 03/03 2140 98 22 161/76 109 97 03/03 2135 102 26 153/72 104 95 03/03 2130 Nasal 4 cannula 03/03 2130 97 22 150/71 102 96 03/03 2120 92 10 141/65 93 98 03/03 2118 92 11 130/62 89 95 03/03 2115 91 19 134/62 89 92 03/03 2100 91 14 132/59 83 94 Nasal 4 cannula 03/03 2052 99 Nasal 3 cannula 03/03 2030 92 14 145/66 92 Nasal 4 cannula 03/03 2000 92 14 165/75 105 97 Nasal 4 cannula 03/03 1837 98.2 79 13 158/70 0.0 96 Nasal cannula PATIENT WEIGHT: Weight (lb): 182Weight (oz): 15.74Weight (kg): 83.000 Medications:Active Meds + DC'd Last 24 HrsClindamycin Phosphate (CLEOCIN 900 MG/NS 50 ML) 50 ML PREOP ONCALL IV (CKD) Metoprolol Tartrate (LOPRESSOR) 6.25 MG ONCE ONE PO (DC) Vancomycin HCl (Vancomycin 1,250 mg Inj (B2)) 1,250 MG PREOP ONCALL IV (CKD) Sodium Chloride (SODIUM CHLORIDE 0.9%) 250 MLVerapamil HCl (ISOPTIN) 16.6 MG .Q24H ONE IV (CKD) Heparin Sodium (Porcine) (HEPARIN SODIUM) 1,660 UNIT Sodium Bicarbonate (SODIUM BICARBONATE) 0.7 ML Nitroglycerin/Dextrose (NITROGLYCERIN 50MG/D5W 250ML) 8.3 MG Lactated Ringer's (LACTATED RINGERS) 949.5 MLIopamidol (ISOVUE-300 100ML) 100 ML .STK-MED ONE IV (DC) Budesonide (PULMICORT RESPULES) 0.5 MG RTBID INH Formoterol Fumarate (PERFOROMIST) 20 MCG RTBID NEB Doxycycline Hyclate (VIBRAMYCIN) 100 MG Q12HR IV Sodium Chloride (SODIUM CHLORIDE 0.9% 100 ML) 100 MLGuaifenesin (MUCINEX 600MG TAB SA) 600 MG Q12HR PO Ipratropium [place] (ATROVENT) 500 MCG RTQ6H INH Mupirocin (BACTROBAN 2% 22 GM OINTMENT) 1 APPLIC BID NASAL Methylprednisolone Sodium Succinate (Solu-Medrol 40 MG Vial) 40 MG Q8H IV Sterile Water (WATER FOR INJECTION) 1 ML ASDIR PRN IV Acetaminophen (TYLENOL EXTRA STRENGTH) 1,000 MG PREOP ONCALL PO (CKD) Albuterol Sulfate (ALBUTEROL SULFATE) 2.5 MG RTONCE ONE NEB (DC) Gabapentin (NEURONTIN) 200 MG PREOP ONCALL PO (CKD) Heparin Sodium (HEPARIN 5000 UNITS/ML) 0 ASDIR PRN IV Heparin Sodium (Porcine) (HEPARIN 25,000 UNITS/ 1/2NS 500ML) 500 ML ASDIR IV (CKD) Nitroglycerin/Dextrose (NITROGLYCERIN 50,000MCG/D5W 250ML) 250 ML ASDIR IV Physical ExamGeneral appearance: alert, awakeNeck: full range of motion, non-tender, normal thyroid, supple/no meningismus, no bruit/NL carotids, no JVD, no lymphadenopathy, no masses or swellingCardiovascular: CV assessment: regular rate and rhythmRespiratory: decreased breath sounds, clear to auscultationAbdomen: non-tender, normal bowel sounds, no distention, no guarding, no mass/organomegaly, no pulsatile mass, no reboundUpper extremity: UE assessment: normal capillary refill, no edemaLower extremity: LE assessment: normal capillary refill, no edema ResultsFindings/Data:Laboratory Tests 03/04 03/03 03/03 03/03 0354 2036 2036 2036 Chemistry Sodium (134 - 147 mEq/L) 140 142 Potassium (3.4 - 5.0 mEq/L) 4.6 4.2 Chloride (100 - 108 mEq/L) 106 109 H Carbon Dioxide (21 - 33 mEq/l) 22 28 Anion Gap (0 - 20) 17 9 BUN (7 - 18 mg/dL) 27 H 24 H Creatinine (0.6 - 1.3 mg/dL) 1.3 1.2 Glomerular Filtr Rate (70 - 80) 58.7 L 64.7 L Glucose (70 - 110 mg/dL) 295 H 148 H Hemoglobin A1c (4.8 - 6.0 %A1C) 7.1 H Calcium (8.0 - 10.5 mg/dL) 8.4 8.5 Magnesium (1.80 - 2.40 mg/dL) 1.76 L Total Bilirubin (0.0 - 1.0 mg/dL) 0.50 0.50 AST (15 - 37 IUnit/L) 17 15 ALT (30 - 65 IUnit/L) 8 L < 7 L Total Alk Phosphatase (20 - 125 IUnit/L) 45 48 B-Natriuretic Peptide (0 - 100 PG/ML) 802.0 H Total Protein (6.4 - 8.2 g/dL) 6.0 L 6.4 Albumin (3.4 - 5.0 g/dL) 3.00 L 3.20 L Triglycerides (40 - 150 mg/dL) 170 H Cholesterol (<200 mg/dL) 100 LDL Cholesterol [place] (0 - 100 mg/dL) 53.0 HDL Cholesterol (32 - 72 mg/dL) 21.1 L Cholesterol/HDL Ratio (3.43 - 4.97 RATIO) 4.74 Laboratory Tests 03/04 Coagulation INR (0.8 - 1.2) 1.3 H PTT ([place]) (25.0 - 39.5 Seconds) 80.6 H 39.0 PT Patient/Control Mix (9.3 - 12.9 SECONDS) 14.4 H Laboratory Tests 03/04 Hematology WBC (4.5 - 11.0 x10 3/uL) 5.4 5.0 RBC (4.00 - 5.60 x10 6/uL) 3.36 L 3.45 L Hgb (12.5 - 16.9 g/dL) 10.4 L 10.6 L Hct (37.5 - 50.7 %) 31.4 L 32.5 L MCV (81.0 - 99.0 fL) 93.5 94.2 MCH (27.0 - 33.0 pg) 31.0 30.7 MCHC (33.0 - 37.0 g/dL) 33.1 32.6 L RDW (11.5 - 14.5 %) 14.4 14.3 Plt Count (150 - 400 x10 3/uL) 117 L 118 L MPV (7.0 - 9.0 fL) 10.6 H 11.2 H Neut % (Auto) (56.0 - 77.0 %) 90.9 H 84.2 H Lymph % (Auto) (14.0 - 32.0 %) 5.0 L 6.4 L [place] % (Auto) (4.8 - 9.0 %) 2.8 L 7.8 Eos % (Auto) (0.3 - 3.7 %) 0.2 L 1.0 Baso % (Auto) (0.0 - 2.0 %) 0.2 0.4 Neut # (Auto) (2.0 - 7.6 x10 3/uL) 4.95 4.18 Lymph # (Auto) (1.0 - 3.8 x10 3/uL) 0.27 L 0.32 L [place] # (Auto) (0.1 - 0.8 x10 3/uL) 0.15 0.39 Eos # (Auto) (0.0 - 0.2 x10 3/uL) 0.01 0.05 Baso # (Auto) (0.0 - 0.2 x10 3/uL) 0.01 0.02 Abs Immat Gran (auto) (0.00 - 0.03 x10 3/uL) 0.05 H 0.01 Add Manual Diff NO NO Immature Gran % (0.0 - 2.0 %) 0.9 0.2 Nucleated RBC % (0 - 0 %) 0.0 0.0 Nucleated RBCs # (Man) (0.0 - 0.1 x10 3/uL) 0.00 0.00 Laboratory Tests 03/03 1952 Serology SARS-CoV-2 Ag (Rapid) (Negative) Negative Laboratory Tests 03/04 354 Urines Urine Color (YEL/STRAW) YELLOW Urine Appearance (CLEAR) CLEAR Urine pH (5.0 - 7.0) 5.0 Ur Specific [place] (1.005 - 1.030) 1.043 H Urine Protein (NEGATIVE) 3+ H Urine Glucose (UA) (NEGATIVE) NEGATIVE Urine Ketones (NEGATIVE) 1+ H Urine Blood (NEGATIVE) NEGATIVE Urine Nitrite (NEGATIVE) NEGATIVE Urine Bilirubin (NEGATIVE) NEGATIVE Urine Urobilinogen (0.2 - 1.0 mg/dL) 0.2 Ur Leukocyte Esterase (NEGATIVE) NEGATIVE Urine RBC (0 - 3 RBC/HPF) 0-3 Urine WBC (0 - 3 WBC/HPF) 0-3 Ur Squamous Epith Cells (NONE SEEN /HPF) NONE SEEN Urine Bacteria (NONE SEEN /HPF) NONE SEEN Urine Mucus (NONE SEEN /LPF) TRACE Laboratory Tests 03/044 7 Chemistry Magnesium (1.80 - 2.40 mg/dL) 1.76 L B-Natriuretic Peptide (0 - 100 PG/ML) 802.0 H Radiology data:Recent Impressions:CAT SCAN - CT ANGIO CHEST 03/03 2342 Report Impression - Status: SIGNED Entered: 03/04/2023 0150 IMPRESSION: 1. No evidence of acute pulmonary embolism. 2. Emphysematous changes within both lungs. 3. A 1.5 x 0.8 cm nodular opacity within the right lower lobe. This may represent neoplastic etiology or possible scarring. As per 2017 Fleischner criteria guidelines, in low and high risk patients, CT of the chest, PET/CT, or tissue sampling should be performed in 3 months. Impression By: Ramón Roman M.D.ULTRASOUND - DUP EXTRACRANIAL SCOTTY 03/03 2350 Report Impression - Status: SIGNED Entered: 03/04/2023 0218 IMPRESSION: 1. Severe stenosis of the left proximal internal carotid artery by NASCET criteria. Consider CTA of the neck for complete assessment. 2. No significant stenosis within the proximal right internal carotid artery. REFERENCES: The degree of internal carotid artery stenosis is based on criteria defined by the [employer] Vascular Testing criteria. Normal is no stenosis. Mild is less than 50% stenosis. Moderate is 50-69% stenosis. Severe is greater than 69% stenosis to near occlusion. Near occlusion is a markedly narrowed lumen. Total occlusion is no detectable patent lumen. Impression By: Ramón Roman M.D.ULTRASOUND - DUP VEIN SCOTTY 03/04 0021 Report Impression - Status: SIGNED Entered: 03/04/2023 0206 IMPRESSION: Greater saphenous veins are patent. Vein mapping as described. Impression By: [email or web address] - Morales Villegas M.D. Diagnosis, Assessment Plan Free Text DxA P NotesFree Text DxA P Notes:1- Severe COPD with exacerbation: A per Pulm2- Recent pulmonary embolism on Eliquis3- NSTEMI/Multivessel coronary artery disease: Needs CBBG and is high risk5- Hypertension6- History of tobacco use7- ObesityWILL DO ECHO TODAY at 0658 RPT #:[id number] OF REPORTPRProgress [id number]:00G.[id number] able for patient [id number]:59:21 [facility] 2023-03-04 02:31:00 [id number]:31:00 [facility] ([facility])Critical Care Consult NoteREPORT#:[id number] REPORT STATUS: SignedDATE:03/04/23 TIME: 0231 PATIENT: TEVIN NYE UNIT #: [id number]#: [id number] [address] AGE: 72 SEX: M ATTEND: Luci Villeda [facility] AUTHOR: Emery Sheehan Jr, MD * ALL edits or amendments must be made on the electronic/computer document * History of Present Illness HPIHPI:72 y.o. male with PMH of hypertension, dyslipidemia, diabetes, former smoker (quit 2008), BPH, prostate CA s/p radiation, COPD (uses inhaler at home, no home oxygen), and PE (November 2022 on eliquis) who presented to [facility] with chest pain, dyspnea on exertion, and NSTEMI. Coronary angiogram was done and revealed severe multivessel coronary artery disease. Patient was then transferred to [facility] for CV surgery evaluation and need for CABG. Transferred to the ICU for nitroglycerin drip and preoperative workup. Also noted to have chest pain - which he states is better and related to when he coughs. Currently without any pain. History - Adult longitudinalPast medical history:Reports: COPD, Diabetes mellitus, Hypertension, BPH, Dyslipidemia. Past surgical history:Reports: Knee procedure, Lung surgery (collapsed lung). Alcohol use: Denies EtOH useDrug use: Denies recreational drugsSmoking status for patients 13 years old or older: Former SmokerPacks per day: 1Years smoked: 20Pack years: 20Allergies:Coded Allergies:Penicillins (USE COMMENT BUTTON 03/03/23) PT STATES THAT HE WAS JUST TOLD THAT HE'S ALLERGIC TO PENICILLIN AND ITS NOT GONNA WORK FOR HIM Review of Systems ROSConstitutional:Denies: chills, fatigue. ENT:Denies: ear drainage, ear ringing. Respiratory:Denies: [place] (dyspnea on exertion), SOB, wheezing. Cardiovascular:Reports: chest pain, [place] (dyspnea on exertion). Denies: edema. GI:Denies: abdominal pain, nausea, vomiting. All systems rev neg: except as marked Objective Physical ExamVS/I O:Last Documented: Result Date Time Pulse Ox 96 03/04 0202 O2 Delivery Nasal cannula 03/04 0202 O2 Flow Rate 4 03/04 0202 B/P 109/55 03/04 0145 B/P Mean 76 03/04 0145 Pulse 91 03/04 0145 Resp 20 03/04 0145 Temp 98.4 03/03 2308 24 hour I O ending at 0700: 03/04 0700 03/03 1900 Intake Total Output Total Balance Patient 83 kg Weight Weight Stated/Reported Measurement Method Patient Weight and BMI Weight (kg): 83.000 BMI: 28.7 Medications:Active Meds + DC'd Last 24 HrsClindamycin Phosphate (CLEOCIN 900 MG/NS 50 ML) 50 ML PREOP ONCALL IV (CKD) Metoprolol Tartrate (LOPRESSOR) 6.25 MG ONCE ONE PO Vancomycin HCl (Vancomycin 1,250 mg Inj (B2)) 1,250 MG PREOP ONCALL IV (CKD) Sodium Chloride (SODIUM CHLORIDE 0.9%) 250 MLVerapamil HCl (ISOPTIN) 16.6 MG .Q24H ONE IV (CKD) Heparin Sodium (Porcine) (HEPARIN SODIUM) 1,660 UNIT Sodium Bicarbonate (SODIUM BICARBONATE) 0.7 ML Nitroglycerin/Dextrose (NITROGLYCERIN 50MG/D5W 250ML) 8.3 MG Lactated Ringer's (LACTATED RINGERS) 949.5 MLIopamidol (ISOVUE-300 100ML) 100 ML .STK-MED ONE IV (DC) Budesonide (PULMICORT RESPULES) 0.5 MG RTBID INH Formoterol Fumarate (PERFOROMIST) 20 MCG RTBID NEB Doxycycline Hyclate (VIBRAMYCIN) 100 MG Q12HR IV Sodium Chloride (SODIUM CHLORIDE 0.9% 100 ML) 100 MLGuaifenesin (MUCINEX 600MG TAB SA) 600 MG Q12HR PO Ipratropium [place] (ATROVENT) 500 MCG RTQ6H INH Mupirocin (BACTROBAN 2% 22 GM OINTMENT) 1 APPLIC BID NASAL Methylprednisolone Sodium Succinate (Solu-Medrol 40 MG Vial) 40 MG Q8H IV Sterile Water (WATER FOR INJECTION) 1 ML ASDIR PRN IV Acetaminophen (TYLENOL EXTRA STRENGTH) 1,000 MG PREOP ONCALL PO (CKD) Albuterol Sulfate (ALBUTEROL SULFATE) 2.5 MG RTONCE ONE NEB (DC) Gabapentin (NEURONTIN) 200 MG PREOP ONCALL PO (CKD) Heparin Sodium (HEPARIN 5000 UNITS/ML) 0 ASDIR PRN IV Heparin Sodium (Porcine) (HEPARIN 25,000 UNITS/ 1/2NS 500ML) 500 ML ASDIR IV (CKD) Nitroglycerin/Dextrose (NITROGLYCERIN 50,000MCG/D5W 250ML) 250 ML ASDIR IV General appearance: alert, awake, orientedHead/Eyes: EOMI, PERRLACardiovascular: normal capillary refill, normal heart sounds, regular rate and rhythm, normal S1/F6Cdbhkrdyleo: aerating well, clear to auscultation, symmetric expansionAbdomen: soft, non-tenderExtremities: moves all ResultsFindings/Data:Laboratory Tests 03/03/232036:[Embedded Image Not Available]Laboratory Tests 03/03 Chemistry Sodium (134 - 147 mEq/L) 142 Potassium (3.4 - 5.0 mEq/L) 4.2 Chloride (100 - 108 mEq/L) 109 H Carbon Dioxide (21 - 33 mEq/l) 28 Anion Gap (0 - 20) 9 BUN (7 - 18 mg/dL) 24 H Creatinine (0.6 - 1.3 mg/dL) 1.2 Glomerular Filtr Rate (70 - 80) 64.7 L Glucose (70 - 110 mg/dL) 148 H Hemoglobin A1c (4.8 - 6.0 %A1C) 7.1 H Calcium (8.0 - 10.5 mg/dL) 8.5 Total Bilirubin (0.0 - 1.0 mg/dL) 0.50 AST (15 - 37 IUnit/L) 15 ALT (30 - 65 IUnit/L) < 7 L Total Alk Phosphatase (20 - 125 IUnit/L) 48 B-Natriuretic Peptide (0 - 100 PG/ML) 802.0 H Total Protein (6.4 - 8.2 g/dL) 6.4 Albumin (3.4 - 5.0 g/dL) 3.20 L Triglycerides (40 - 150 mg/dL) 170 H Cholesterol (<200 mg/dL) 100 LDL Cholesterol [place] (0 - 100 mg/dL) 53.0 HDL Cholesterol (32 - 72 mg/dL) 21.1 L Cholesterol/HDL Ratio (3.43 - 4.97 RATIO) 4.74 Laboratory Tests 03/03 2037 Coagulation INR (0.8 - 1.2) 1.3 H PTT ([place]) (25.0 - 39.5 Seconds) 39.0 PT Patient/Control Mix (9.3 - 12.9 SECONDS) 14.4 H Laboratory Tests 03/03 2037 Hematology WBC (4.5 - 11.0 x10 3/uL) 5.0 RBC (4.00 - 5.60 x10 6/uL) 3.45 L Hgb (12.5 - 16.9 g/dL) 10.6 L Hct (37.5 - 50.7 %) 32.5 L MCV (81.0 - 99.0 fL) 94.2 MCH (27.0 - 33.0 pg) 30.7 MCHC (33.0 - 37.0 g/dL) 32.6 L RDW (11.5 - 14.5 %) 14.3 Plt Count (150 - 400 x10 3/uL) 118 L MPV (7.0 - 9.0 fL) 11.2 H Neut % (Auto) (56.0 - 77.0 %) 84.2 H Lymph % (Auto) (14.0 - 32.0 %) 6.4 L [place] % (Auto) (4.8 - 9.0 %) 7.8 Eos % (Auto) (0.3 - 3.7 %) 1.0 Baso % (Auto) (0.0 - 2.0 %) 0.4 Neut # (Auto) (2.0 - 7.6 x10 3/uL) 4.18 Lymph # (Auto) (1.0 - 3.8 x10 3/uL) 0.32 L [place] # (Auto) (0.1 - 0.8 x10 3/uL) 0.39 Eos # (Auto) (0.0 - 0.2 x10 3/uL) 0.05 Baso # (Auto) (0.0 - 0.2 x10 3/uL) 0.02 Abs Immat Gran (auto) (0.00 - 0.03 x10 3/uL) 0.01 Add Manual Diff NO Immature Gran % (0.0 - 2.0 %) 0.2 Nucleated RBC % (0 - 0 %) 0.0 Nucleated RBCs # (Man) (0.0 - 0.1 x10 3/uL) 0.00 Microbiology:03/03 1952 NASAL: MSSA Surveillance Screen - ORD03/03 1952 NASAL: MRSA DNA Surveillance Screen - ORD Radiology data:Recent Impressions:CAT SCAN - CT ANGIO CHEST 03/03 2342 Report Impression - Status: SIGNED Entered: 03/04/2023 0150 IMPRESSION: 1. No evidence of acute pulmonary embolism. 2. Emphysematous changes within both lungs. 3. A 1.5 x 0.8 cm nodular opacity within the right lower lobe. This may represent neoplastic etiology or possible scarring. As per 2017 Fleischner criteria guidelines, in low and high risk patients, CT of the chest, PET/CT, or tissue sampling should be performed in 3 months. Impression By: [email or web address] Og Roman M.D.ULTRASOUND - DUP EXTRACRANIAL SCOTTY 03/03 4300 Report Impression - Status: SIGNED Entered: 03/04/20238 IMPRESSION: 1. Severe stenosis of the left proximal internal carotid artery by NASCET criteria. Consider CTA of the neck for complete assessment. 2. No significant stenosis within the proximal right internal carotid artery. REFERENCES: The degree of internal carotid artery stenosis is based on criteria defined by the IAC Vascular Testing criteria. Normal is no stenosis. Mild is less than 50% stenosis. Moderate is 50-69% stenosis. Severe is greater than 69% stenosis to near occlusion. Near occlusion is a markedly narrowed lumen. Total occlusion is no detectable patent lumen. Impression By: [email or web address] - Alvino Roman M.D.ULTRASOUND - DUP VEIN SCOTTY 03/04 0021 Report Impression - Status: SIGNED Entered: 03/04/2023 0206 IMPRESSION: Greater saphenous veins are patent. Vein mapping as described. Impression By: [email or web address] - Morales Villegas M.D. Diagnosis, Assessment Plan Diagnosis, Assessment PlanAdditional comments:72 M presented with chest pain to the ICU - placed on nitro drip. Pain improved. Also with h/o NSTEMI, CAD, hypertension, dyslipidemia, diabetes, and PE (November 2022 on eliquis). Eliquis on hold. CT chest shows no PE - however concerning for 1.5 x 0.8 cm nodule on right lower lobe. Neuro: pain controlled - monitorCV: Chest pain - on nitro gtt, pending eval for CABG procedure- continue hold eliquisResp: supplemental oxygen - h/o PE - CTA negativeGI: NPO for now- monitor glucose levelsGU: monitor UOP Heme: stable at 0248 RPT #:[id number] OF REPORTYLImwsvlmracmr1497-42-19A52:31:00G.PDOC2 [id number] for patient hgcaBFYTOSZBKAMCLJ8364-87-51J37:48:38 [facility] 2023-03-03 21:35:00 [id number] [id number] hFRgre2gOFDPqbmGOdKnqi+XJlo9327-28-04E26:35:00 [facility] ([facility])Cardiology ConsultationREPORT#:[id number] REPORT STATUS: SignedDATE:03/03/23 TIME: 2134 PATIENT: TEVIN NYE UNIT #: [id number]#: [id number] [address] [birth year] AGE: 72 SEX: M ATTEND: Luci Villeda [facility] AUTHOR: Anuj Sylvester MD * ALL edits or amendments must be made on the electronic/computer document * History - Adult longitudinalAllergies:Coded Allergies:Penicillins (USE COMMENT BUTTON 03/03/23) PT STATES THAT HE WAS JUST TOLD THAT HE'S ALLERGIC TO PENICILLIN AND ITS NOT GONNA WORK FOR HIM Diagnosis, Assessment Plan Free Text DxA P NotesFree Text DxA P Notes:CARDIOLOGY CONSULT DICTATED at 2136 RPT #:[id number] OF REPORTZFHeyjspzpfcnb4677-59-57K97:35:00G.PDOC2 [id number] for patient fpzaDBHGYQYXHARXMH5180-55-12U01:36:49 [facility] 2023-03-03 21:32:00 [id number] 9gSD0paW3nZ/6ZcawIBMh2NWhP10574-92-42E75:32:[address] -[address]00 [place] [id number] PATIENT NAME: TEVIN NYE ADMIT DATE: 03/03/23ACCOUNT NO: [id number] ROOM NO: [facility] AGE: 72 REPORT TYPE: CONSULTATION REPORT SEX: M ADMITTING PHYSICIAN:Luci Villeda MD ATTENDING PHYSICIAN:Luci Villeda MD CONSULTATION DATE: 03/03/2023 CARDIOLOGY CONSULTATION REQUESTING PHYSICIAN: Dr. Villeda. HISTORY OF PRESENT ILLNESS: Mr. Nye is a 72-year-old pleasant gentleman with a history of hypertension, diabetes mellitus, hypercholesterolemia, former smoker, prostate cancer, and COPD, who was consulted for 3-vessel disease, requiring bypass surgery. [facility]. [facility] is being done for non-STEMI. It revealed 3-vesseldisease and he is transferred to [facility] for bypass surgery. PAST MEDICAL HISTORY: Otherwise, as above. SOCIAL HISTORY: He was a chronic smoker. FAMILY HISTORY: Positive for premature coronary artery disease. MEDICATIONS: As charted. PHYSICAL EXAMINATION:VITAL SIGNS: Blood pressure is 138/78, heart rate is 78 beats per minute and regular, respiratory rate 18, and temperature 98.5.HEENT EXAMINATION: No jugular venous distention.CHEST: Bilateral rhonchi in all lung tidwell.CARDIOVASCULAR EXAMINATION: Apical impulse not palpable. S1, S2, soft.ABDOMEN: Benign.EXTREMITIES: No edema. DIAGNOSTIC DATA: EKG shows normal sinus, nonspecific ST changes. IMPRESSION:1. Non-ST elevation myocardial infarction with three-vessel disease, requiring bypass surgery.2. Chronic obstructive pulmonary disease.3. Hypertension.4. Hypercholesterolemia.5. Diabetes mellitus.6. History of pulmonary embolism, was on Eliquis. RECOMMENDATIONS:1. Agree with echocardiogram. PATIENT NAME: TEVIN NYE 2. Admit to CVICU.3. Initiate preoperative workup.4. Bypass surgery as per Dr. Villeda. Dictated By: Anuj Sylvester MD Date Dictated: 03/03/2023 21:32:47Date Transcribed: 03/03/2023 22:51:12GA/Mini #: [id number] ID: [id number] by Anuj Sylvester MD On 03/04/2023 09:01:13 PM at 0901 PATIENT NAME: TEVIN NYE :51:00G.MT [id number] for patient gvhoILEXQYKCAIHQEP9472-96-62M65:01:46 [facility] 2023-03-03 20:15:00 [id number]/vMD5v/zu20O94XsH +IBhSAXjBcaXRPL5FGSXx/qPZ7L5252-96-57G91:15:00 [facility] ([facility])Pulmonary Consultation NoteREPORT#:[id number] REPORT STATUS: SignedDATE:03/03/23 TIME: 2014 PATIENT: TEVIN NYE UNIT #: [id number]#: [id number] [address] [birth year] AGE: 72 SEX: M ATTEND: Luci Villeda [facility] AUTHOR: Sharmila Alan * ALL edits or amendments must be made on the electronic/computer document * History of Present Illness HPIRequesting clinician: Dr. Farrell for consult:Preop clearanceChief complaint:Chest painPCP:PCP: No Primary or Family Physician HPI:72 years old male with prolonged smoking history quit in 2019. He smoked 30+ years prior to that. History of COPD. History for pulmonary embolism 2 months ago on Eliquis. Maintained on Combivent inhaler at home. No home oxygen use. Has shortness of breath with minimal exertion. Chronic cough with clear phlegm. On and off wheezing. Can only walk 100 to 200 feet on level ground. Symptoms of claudication. Presented to an outside hospital with chest pain. Had positive enzymes. Left heart cath showed multivessel coronary artery disease and he was transferred here for CABG eval. Currently on nasal cannula. He appears dyspneic. Has persistent cough. Audible wheezing. History - Adult longitudinalPast medical history:Reports: COPD, Diabetes mellitus, Hypertension, BPH, Dyslipidemia. Past surgical history:Reports: Knee procedure, Lung surgery (collapsed lung). Alcohol use: Denies EtOH useDrug use: Denies recreational drugsSmoking status for patients 13 years old or older: Former SmokerPacks per day: 1Years smoked: 20Pack years: 20Medications:Home Medications:Medication Dose/Rte/Freq Days Qty Entered Last Max Daily Dose Reviewed OXYBUTYNIN (DITROPAN) 5 MG PO BID 03/03/23 03/03/23Strength: 5 MG TAB 1937 1948 TAMSULOSIN ER (FLOMAX) 0.8 MG PO DAILY 03/03/23 03/03/23Strength: 0.4 MG CAP.SR.24H 1938 1948 FLUoxetine (PROzac) 10 MG PO QAM 03/03/23 03/03/23Strength: 10 MG CAP 1938 1948 LATANOPROST 1 DROP EACH EYE 03/03/23 03/03/23 (XALATAN 0.005% OPHTH BEDTIME 1939 1948 SOLN)Strength: 0.005 % OPHTH.SOLN LISINOPRIL (ZESTRIL) 20 MG PO DAILY 03/03/23 03/03/23Strength: 20 MG TAB 1939 1948 METOPROLOL TARTRATE 25 MG PO BID 03/03/23 03/03/23 (LOPRESSOR) 1940 1948Strength: 50 MG TAB INSULIN LISPRO 6 03/03/23 03/03/23 (HumaLOG KWIKPEN (3mL)) 1942 1948Strength: 100 UNIT/MLINSULN.PEN INSULIN LISPRO (HumaLOG) 50 03/03/23 03/03/23Strength: 100 UNIT/ML VIAL 1943 1948 CALCIUM CARBONATE/VIT 2 TAB PO DAILY 03/03/23 03/03/23 D3 1944 1948 (CALCIUM CARB/VIT D3 500 MG/200 UNITS)Strength: 500 MG CALCIUM-5MCG (200 UNIT) TAB CYANOCOBALAMIN 100 MCG PO DAILY 03/03/23 03/03/23 (VITAMIN B-12) 1944 1948Strength: 100 MCG TAB HYDROCHLOROTHIAZIDE 25 MG PO DAILY 03/03/23 03/03/23 (HYDRODIURIL) 1945 1948Strength: 25 MG TAB APIXABAN (ELIQUIS) 5 MG PO BID 03/03/23 03/03/23Strength: 5 MG TAB 1946 1948 ASPIRIN 81 MG PO DAILY 03/03/23 03/03/23Strength: 81 MG TAB.CHEW 1946 1948 ATORVASTATIN (LIPITOR) 5 MG PO DAILY 03/03/23 03/03/23Strength: 10 MG TAB 1948 1949 Current Hospital Medications:Anti-Infective Agents Sig/Yas Start time Last Medication Dose Route Stop Time Status Admin Clindamycin Phosphate 50 ML PREOP ONCALL 03/04 050 CKD (CLEOCIN 900 MG/NS IV 03/04 2359 50 ML) Vancomycin HCl 1,245 MG PREOP ONCALL 03/04 050 PEND (VANCOMYCIN HCL) IV 03/04 2359 Sodium Chloride 250 ML (SODIUM CHLORIDE 0.9%) Doxycycline Hyclate 100 MG Q12HR 03/03 2100 AC (VIBRAMYCIN) IV 03/08 2059 Sodium Chloride 100 ML (SODIUM CHLORIDE 0.9% 100 ML) Autonomic Drugs Sig/Yas Start time Last Medication Dose Route Stop Time Status Admin Formoterol Fumarate 20 MCG RTBID 03/03 2200 AC (PERFOROMIST) NEB 04/02 2159 Ipratropium [place] 500 MCG RTQ6H 03/03 2100 AC (ATROVENT) INH 04/02 2059 Albuterol Sulfate 2.5 MG RTONCE ONE 03/03 2000 DC (ALBUTEROL SULFATE) NEB 03/03 2001 Blood Formation,Coagulation Sig/Yas Start time Last Medication Dose Route Stop Time Status Admin Heparin Sodium 0 ASDIR PRN 03/03 2000 UNV (HEPARIN 5000 UNITS/ IV 04/02 195 ML) Heparin Sodium 500 ML ASDIR 03/03 2000 UNV (Porcine) IV 04/02 1959 (HEPARIN 25,000 UNITS/ 1/2NS 500ML) Cardiovascular Drugs Sig/Yas Start time Last Medication Dose Route Stop Time Status Admin Metoprolol Tartrate 6.25 MG ONCE ONE 03/04 500 AC (LOPRESSOR) PO 03/04 050 Verapamil HCl 16.6 MG .Q24H ONE 03/04 500 CKD (ISOPTIN) IV 03/05 459 Heparin Sodium 1,660 UNIT (Porcine) (HEPARIN SODIUM) Sodium Bicarbonate 0.7 ML (SODIUM BICARBONATE) Nitroglycerin/ 8.3 MG Dextrose (NITROGLYCERIN 50MG/ D5W 250ML) Lactated Ringer's 949.5 ML (LACTATED RINGERS) Nitroglycerin/ 250 ML ASDIR 03/03 2000 AC Dextrose IV 04/02 1959 (NITROGLYCERIN 50,000MCG/D5W 250ML) Central Nervous System Agents Sig/Yas Start time Last Medication Dose Route Stop Time Status Admin Acetaminophen 1,000 MG PREOP ONCALL 03/03 2000 CKD (TYLENOL EXTRA PO 04/02 1959 STRENGTH) Gabapentin 200 MG PREOP ONCALL 03/03 2000 CKD (NEURONTIN) PO 04/02 2359 Eye, Ear, Nose And Throat (Een Sig/Yas Start time Last Medication Dose Route Stop Time Status Admin Budesonide 0.5 MG RTBID 03/03 2200 AC (PULMICORT RESPULES) INH 04/02 2159 Hormones And Synthetic Substit Sig/Yas Start time Last Medication Dose Route Stop Time Status Admin Methylprednisolone 40 MG Q8H 03/03 2015 AC Sodium Succinate IV 04/02 2014 (Solu-Medrol 40 MG Vial) Pharmaceutical Aids Sig/Yas Start time Last Medication Dose Route Stop Time Status Admin Sterile Water 1 ML ASDIR PRN 03/03 2015 AC (WATER FOR INJECTION) IV 04/02 2014 Respiratory Tract Agents Sig/Yas Start time Last Medication Dose Route Stop Time Status Admin Guaifenesin 600 MG Q12HR 03/03 2100 AC (MUCINEX 600MG TAB PO 04/02 2059 SA) Skin And Mucous Membrane Agent Sig/Yas Start time Last Medication Dose Route Stop Time Status Admin Mupirocin 1 APPLIC BID 03/03 2100 AC (BACTROBAN 2% 22 GM NASAL 03/08 09 OINTMENT) Allergies:Coded Allergies:Penicillins (USE COMMENT BUTTON 03/03/23) PT STATES THAT HE WAS JUST TOLD THAT HE'S ALLERGIC TO PENICILLIN AND ITS NOT GONNA WORK FOR HIM Review of SystemsAll systems rev neg: except as marked Objective Physical ExamVitals:Last Documented: Result Date Time Pulse Ox 96 03/03 1837 B/P 158/70 03/03 1837 B/P Mean 0.0 03/03 1837 O2 Delivery Nasal cannula 03/03 1837 Temp 36.8 03/03 1837 Pulse 79 03/03 1837 Resp 13 03/03 1837 General appearance: alert, awake, oriented, no acute distressHead/eyes: atraumatic, normocephalic, PERRLNeck: supple/no meningismus, no bruit/NL carotids, no JVD, no lymphadenopathyCardiovascular: normal S1/S2, no rub, no gallopRespiratory/chest: decreased breath sounds, prolonged exp phase, wheezing, symmetric expansionAbdomen: soft, normal bowel sounds, no distention, no guardingExtremities: no clubbing, no cyanosisNeuro/SALES ASSISTANT: alert, oriented X 3, no motor deficitsSkin: dry, normal colorPsychiatry: normal affect, no hallucinations Diagnosis, Assessment Plan Free Text DxA P NotesFree Text DxA P Notes:1- Acute COPD exacerbation2- Recent pulmonary embolism on Eliquis3- NSTEMI/Multivessel coronary artery disease5- Hypertension6- History of tobacco use7- Obesity - Continue nasal cannula O2, titrate to keep sats above 94%- IV Solu-Medrol 40 mg every 8 hours- IV Doxycycline- Pulmicort Perforomist and Atrovent nebulizers- Mucinex every 12 hours- Check CTA of the chest to ensure resolution of the PE, lower extremity Dopplerrule out DVT- Recommend to postpone surgery until COPD flareup is treated.- Patient has increased risk for postoperative pulmonary complications due to underlying COPD Thank you very much Dr. Villeda for giving me the opportunity to participate in this patient's care, I will follow the patient with you. at 2027 RPT #:[id number] OF REPORTTEJiurauyisjkl8944-46-73B20:15:00G.PDOC2 [id number] for patient hvbjHKBUXXIQCLALBG3924-19-08B90:29:21 [facility] 2023-03-03 19:54:00 [id number]+ jSZJwhMqLaCf8VyLthncDI+ypr55210-54-44R18:54:00 [facility] ([facility])History Physical - AdultREPORT#:[id number] REPORT STATUS: SignedDATE:03/03/23 TIME: 1953 PATIENT: TEVIN NYE UNIT #: [id number]#: [id number] ROOM[facility]BED[facility]-1DOB: [birth year] AGE: 73 SEX: M ATTEND: Luci Villeda MDADM AUTHOR: Luci Villeda MD * ALL edits or amendments must be made on the electronic/computer document * History of Present Illness HPIChief complaint:Chest painPCP:PCP: No Primary or Family Physician HPI:This is a pleasant 72 year old male with past medical history of hypertension, dyslipidemia, DM-2 (on insulin), former smoker (quit 2018), BPH, prostate CA s/pradiation, COPD (uses inhaler at home, no home oxygen), and PE (November 2022 on eliquis) who presented to [facility] with chest pain, dyspnea on exertion, and NSTEMI. Coronary angiogram was done and revealed severe multivessel coronary artery disease. Patient was then transferred to [facility] for CV surgery evaluation and need for CABG. HistoryPast medical history:Reports: COPD, Diabetes mellitus, Hypertension, BPH, Dyslipidemia. Past surgical history:Reports: Knee procedure, Lung surgery (collapsed lung). Alcohol use: Denies EtOH useDrug use: Denies recreational drugsSmoking status for patients 13 years old or older: Former SmokerPacks per day: 1Years smoked: 20Pack years: 20 Medication/Allergy-Vaccine HxMedications:Home Medications:Medication Dose/Rte/Freq Days Qty Entered Last Max Daily Dose Reviewed OXYBUTYNIN (DITROPAN) 5 MG PO BID 03/03/23 03/03/23Strength: 5 MG TAB 1937 1948 TAMSULOSIN ER (FLOMAX) 0.8 MG PO DAILY 03/03/23 03/03/23Strength: 0.4 MG CAP.SR.24H 1938 1948 FLUoxetine (PROzac) 10 MG PO QAM 03/03/23 03/03/23Strength: 10 MG CAP 1938 1948 LATANOPROST 1 DROP EACH EYE 03/03/23 03/03/23 (XALATAN 0.005% OPHTH BEDTIME 1939 1948 SOLN)Strength: 0.005 % OPHTH.SOLN LISINOPRIL (ZESTRIL) 20 MG PO DAILY 03/03/23 03/03/23Strength: 20 MG TAB 1939 1948 METOPROLOL TARTRATE 25 MG PO BID 03/03/23 03/03/23 (LOPRESSOR) 1940 1948Strength: 50 MG TAB INSULIN LISPRO 6 03/03/23 03/03/23 (HumaLOG KWIKPEN (3mL)) 1942 1948Strength: 100 UNIT/MLINSULN.PEN INSULIN LISPRO (HumaLOG) 50 03/03/23 03/03/23Strength: 100 UNIT/ML VIAL 1943 1948 CALCIUM CARBONATE/VIT 2 TAB PO DAILY 03/03/23 03/03/23 D3 1944 1948 (CALCIUM CARB/VIT D3 500 MG/200 UNITS)Strength: 500 MG CALCIUM-5MCG (200 UNIT) TAB CYANOCOBALAMIN 100 MCG PO DAILY 03/03/23 03/03/23 (VITAMIN B-12) 1944 1948Strength: 100 MCG TAB HYDROCHLOROTHIAZIDE 25 MG PO DAILY 03/03/23 03/03/23 (HYDRODIURIL) 1945 1948Strength: 25 MG TAB APIXABAN (ELIQUIS) 5 MG PO BID 03/03/23 03/03/23Strength: 5 MG TAB 1946 1948 ASPIRIN 81 MG PO DAILY 03/03/23 03/03/23Strength: 81 MG TAB.CHEW 1946 1948 ATORVASTATIN (LIPITOR) 5 MG PO DAILY 03/03/23 03/03/23Strength: 10 MG TAB 1947 1948 Current Hospital Medications:Anti-Infective Agents Sig/Yas Start time Last Medication Dose Route Stop Time Status Admin Clindamycin Phosphate 50 ML PREOP ONCALL 03/04 0500 CKD (CLEOCIN 900 MG/NS IV 03/049 50 ML) Vancomycin HCl 1,245 MG PREOP ONCALL 03/04 0500 PEND (VANCOMYCIN HCL) IV 03/04 2359 Sodium Chloride 250 ML (SODIUM CHLORIDE 0.9%) Autonomic Drugs Sig/Yas Start time Last Medication Dose Route Stop Time Status Admin Albuterol Sulfate 2.5 MG RTONCE ONE 03/03 2000 AC (ALBUTEROL SULFATE) NEB 03/03 2001 Blood Formation,Coagulation Sig/Yas Start time Last Medication Dose Route Stop Time Status Admin Heparin Sodium 0 ASDIR PRN 03/03 2000 UNV (HEPARIN 5000 UNITS/ IV 04/02 1959 ML) Heparin Sodium 500 ML ASDIR 03/03 2000 UNV (Porcine) IV 04/02 1959 (HEPARIN 25,000 UNITS/ 1/2NS 500ML) Cardiovascular Drugs Sig/Yas Start time Last Medication Dose Route Stop Time Status Admin Metoprolol Tartrate 6.25 MG ONCE ONE 03/04 0500 AC (LOPRESSOR) PO 03/04 0501 Verapamil HCl 16.6 MG .Q24H ONE 03/04 0500 CKD (ISOPTIN) IV 03/05 0459 Heparin Sodium 1,660 UNIT (Porcine) (HEPARIN SODIUM) Sodium Bicarbonate 0.7 ML (SODIUM BICARBONATE) Nitroglycerin/ 8.3 MG Dextrose (NITROGLYCERIN 50MG/ D5W 250ML) Lactated Ringer's 949.5 ML (LACTATED RINGERS) Nitroglycerin/ 250 ML ASDIR 03/03 2000 AC Dextrose IV 04/02 1959 (NITROGLYCERIN 50,000MCG/D5W 250ML) Central Nervous System Agents Sig/Yas Start time Last Medication Dose Route Stop Time Status Admin Acetaminophen 1,000 MG PREOP ONCALL 03/03 2000 CKD (TYLENOL EXTRA PO 04/02 1959 STRENGTH) Gabapentin 200 MG PREOP ONCALL 03/03 2000 CKD (NEURONTIN) PO 04/02 2359 Skin And Mucous Membrane Agent Sig/Yas Start time Last Medication Dose Route Stop Time Status Admin Mupirocin 1 APPLIC BID 03/03 2100 AC (BACTROBAN 2% 22 GM NASAL 03/08 09 OINTMENT) Allergies:Coded Allergies:Penicillins (USE COMMENT BUTTON 03/03/23) PT STATES THAT HE WAS JUST TOLD THAT HE'S ALLERGIC TO PENICILLIN AND ITS NOT GONNA WORK FOR HIM Review of SystemsConstitutional:Denies: chills, fatigue, fever. Skin:Denies: abrasion, bruising, ecchymosis. Allergy/Immun:Denies: allergic reaction, hives, itching. Eyes:Denies: redness, visual loss/blurred, diplopia. ENT:Denies: ear drainage, sore throat, throat pain, tongue pain, toothache. Respiratory:Denies: [place] (dyspnea on exertion), pneumonia, SOB. Cardiovascular:Reports: chest pain. Denies: palpitations. GI:Denies: abdominal pain, nausea, vomiting. :Denies: dysuria, flank pain. Heme:Denies: adenopathy, bleeding, petechiae. Endocrine:Denies: cold intolerance, polydipsia, weight gain. Neuro:Denies: confusion, seizure, syncope. All systems rev neg: except as marked Physical ExamVS/I OVital Signs: Date Time Temp Pulse Resp B/P B/P Pulse O2 O2 Flow FiO2 Mean Ox Delivery Rate 03/03 1837 36.8 79 13 158/70 0.0 96 Nasal cannula PATIENT WEIGHT: Weight (lb): 182Weight (oz): 15.74Weight (kg): 83.000 General appearance: alert, awake, orientedHead/Eyes: atraumatic, clear cornea, normocephalicENT: moist mucosal membranesNeck: full range of motion, non-tenderCardiovascular: normal capillary refill, regular rate rhythm, normal heart soundsRespiratory: no distress, aerating well, symmetric expansionAbdomen/GI: active bowel sounds, soft, non-tenderGenitourinary: no flank painExtremities: moves all, normal capillary refillNeuro/SALES ASSISTANT: alert, oriented X 3Skin: dry, intactPsychiatry: normal affect, normal judgment/insight, normal mood ResultsResults: labs reviewed, vital signs reviewed, vital signs stable, cath.personally reviewed, current med profile rev'd Diagnosis, Assessment Plan Free Text DxA P NotesFree Text DxA P Notes:This is a pleasant 72 year old male with past medical history of hypertension, dyslipidemia, DM-2 (on insulin), former smoker (quit 2018), BPH, prostate CA s/pradiation, COPD (uses inhaler at home, no home oxygen), and PE (November 2022 on eliquis) who presented to [facility] with chest pain, dyspnea on exertion, and NSTEMI. Coronary angiogram was done and revealed severe multivessel coronary artery disease. Patient was then transferred to [facility] for CV surgery evaluation and need for CABG. PLAN Admit patient to CVICUInitiate preop workupIncentive spirometer teachingCarotid ultrasoundBLE vein mappingCT chest non-contrastUA to r/o UTIEchocardiogramHeparin and Nitro dripConsult pulmonary, cardiology, and intensivistCoronary angiogram reviewed and patient will benefit from surgical revascularizaton. The surgery, risks involved, STS score, benefits, complications and alternatives were explained to the patient and his brother. He acknowledged understanding and is willing to proceed. We will tentatively schedule him for surgery tomorrow morning.Further recommendations to follow. at 1731 [facility] #:[id number] OF REPORTHPHistory and physical [id number] AVAvailable for patient [id number] HCACL
[2024-02-10 16:28] LABS: Absolute Basophils 0.1 K/uL (0-0.5); Absolute Eosinophils 0.1 K/uL (0-0.5); Absolute Lymphocytes (CBC) 0.6 K/uL (0.7-4.9); Absolute Monocytes 0.4 K/uL (0.1-1.3); Absolute Neutrophil 3.6 K/uL (1.8-8.0); Basophils % 1.2 % (0-1.3); Eosinophils % 2.7 % (0-4.4); Hematocrit 39.8 % (39.6-49.0); Hemoglobin 12.7 g/dL (13.6-17.9); MCH 29.5 pg (27.0-35.0); MCHC 31.8 g/dL (32.0-36.0); MCV 92.8 fL (80-100); MPV 8.3 fL (7.6-11.3); Neutrophils % 76.1 % (41.7-73.7); Platelets 180 thou/uL (152-406); RBC Red Blood Cell Count 4.29 M/uL (4.33-5.43); Red Cell Distribution Width 15.6 % (12.1-15.2)
[2024-02-10 16:36] LABS: PT Prothrombin Time 20.2 SECONDS (9.5-12.5); PTT, Activated Partial Thromb 40.8 SECONDS (24.3-36.9); Protime INR 1.87
[2024-02-10 16:42] LABS: Anion Gap 5.9 mEq/L (5.0-15.0); Potassium 3.9 mEq/L (3.5-5.1)
--- NOTE | 2024-02-10 17:30 | RAD REPORT ---
EXAM DESCRIPTION: USExtremity Venous Uni Ltd02/10/2024 5:04 pm CLINICAL HISTORY: Right leg pain COMPARISON: 2022 FINDINGS: Right common femoral, superficial femoral, greater saphenous, popliteal and right posterio r tibial veins are compressible and demonstrate augmentation. Doppler demonstrates good flow. 2.2 x 0.8 x 1.1 centimeter Randall's cyst Grayscale, color and spectral analysis performed on all vessels IMPRESSION: No evidence of deep venous thrombosis involving the right lower extremity. 2.2 centimeter Randall's cyst
--- NOTE | 2024-02-10 17:49 | EDPHYS ---
Physician Documentation [facility] Name: Sergey Nye Age: 73 yrs Sex: Male : 1950 Arrival Date: 02/10/2024 Time: 15:01 Bed 11 Private MD: ED Physician Taco Tsai HPI: 02/09 15:42 This 73 yrs old Male presents to ER via Ambulatory with complaints of Leg ec2 Swelling, Leg Pain. 15:42 Patient arrives today for evaluation of 1 week of symptoms. Patient reports he has been ec2 experiencing 1 week of right leg cramping and swelling. Patient reports a history of previous blood clots, on Eliquis. Patient reports medication compliance. Denies any redness to the area and, no fevers, no chills, no nausea or vomiting.. Historical: - Allergies: 15:35 PENICILLINS; mb9 - Home Meds: 15:35 Eliquis oral [Active]; mb9 - PMHx: 15:35 Anxiety; Atrial fibrillation; COPD; diabetes mellitus; Hypertensive disorder; Prostate mb9 Cancer; - PSHx: 15:35 None; mb9 - Immunization history:: Adult Immunizations up to date. - Infectious Disease History:: Denies. - Social history:: Smoking status: Patient denies any tobacco usage or history of. ROS: 15:42 Constitutional: as per hpi ec2 Exam: 15:42 Constitutional: GEN: NAD Head: atraumatic Eyes: EOMI Ears: External ears are ec2 normal. CV: regular rate LUNGS: no respiratory distress ABD: non-distended SKIN: no evidence of rashes MSK: no evidence of trauma, right calf with TTP, no significant swelling appreciated, no erythema, no warmth appreciated. NEURO: moves all extremities equally Vital Signs: 15:34 BP 122 / 59; Pulse 52; Resp 18; Temp 97.2; Pulse Ox 100% ; Weight 85.28 kg; Height 5 mb9 ft. 3 in. ; Pain 3/10; 18:30 BP 126 / 60; Pulse 55; Resp 18 S; Pulse Ox 98% on R/A; kc6 15:34 Body Mass Index 33.30 (85.28 kg, 160.02 cm) mb9 15:34 Pain Scale: Adult mb9 MDM: 15:42 Data reviewed: vital signs. ED course: Patient arrives today for evaluation of right ec2 lower extremity pain and cramping. Examination remarkable for MSK findings as above. Differential diagnosis include DVT, muscular strain, doubt cellulitis, doubt superficial thrombophlebitis. Will obtain lab work and ultrasound . 16:24 Patient medically screened. ec2 17:14 ED course: Reassuring lab work, metabolic profile does show renal dysfunction with a ec2 creatinine of 2.06 and GFR of 34. . 17:15 ED course: When compared to external records, patient has baseline renal dysfunction ec2 and this appears similar.. 17:49 ED course: Ultrasound shows Randall's cyst, no DVT. Will discharge home. Return ec2 precautions given. . 02/09 15:42 Order name: CBC with Diff; Complete Time: 17:13 ec2 02/09 15:42 Order name: BMP; Complete Time: 17:13 ec2 02/09 15:42 Order name: PT-INR; Complete Time: 17:13 ec2 02/09 15:42 Order name: Ptt, Activated; Complete Time: 17:13 ec2 02/09 15:42 Order name: Extremity Venous Uni Ltd US; Complete Time: 17:49 ec2 Administered Medications: No medications were administered Disposition Summary: 02/10/24 17:49 Discharge Ordered Notes: Location: Home ec2 Condition: Stable ec2 Diagnosis - Synovial cyst of popliteal space [Randall], right knee ec2 Followup: ec2 - With: Private Physician - When: - Reason: Re-evaluation by your physician Discharge Instructions: - Discharge Summary Sheet ec2 - Randall Cyst ec2 Forms: - Medication Reconciliation Form ec2 - Antibiotic Education ec2 - Prescription Opioid Use ec2 - Patient Portal Instructions ec2 - Leadership Thank You Letter ec2 Prescriptions: - methocarbamol 500 mg Oral tablet - take 1 tablet ORAL route 4 times per day for 2 days; 20 tablet; Refills: 0, ec2 Product Selection Permitted Signatures: Dispatcher [employer] Elaina Anderson RN RN mb9 Taco Tsai MD MD ec2 Corrections: (The following items were deleted from the chart) 15:42 15:42 Extremity Venous Uni Ltd+US.RAD.BRZ ordered. EDMS EDMS 15:42 15:42 CBC+H.LAB.BRZ ordered. EDMS EDMS 15:42 15:42 BASIC METABOLIC PANEL+C.LAB.BRZ ordered. EDMS EDMS 15:42 15:42 PROTIME (+INR)+COAG.LAB.BRZ ordered. EDMS EDMS 15:42 15:42 PTT, ACTIVATED+COAG.LAB.BRZ ordered. EDMS EDMS 17:49 17:49 Muscle spasm of calf ec2 ec2
--- NOTE | 2024-02-10 17:49 | ER ---
Nurse's Notes [facility] Name: Sergey Nye Age: 73 yrs Sex: Male : 1950 Arrival Date: 02/10/2024 Time: 15:01 Bed 11 Private MD: Diagnosis: Synovial cyst of popliteal space [Randall], right knee Presentation: 02/09 15:34 Chief complaint: Patient states: "For the past few weeks, I've been having right leg mb9 pain and swelling". Coronavirus screen: Vaccine status: Patient reports being unvaccinated. Ebola Screen: No symptoms or risks identified at this time. Initial Sepsis Screen: Does the patient meet any 2 criteria? No. Patient's initial sepsis screen is negative. Does the patient have a suspected source of infection? No. Patient's initial sepsis screen is negative. Risk Assessment: Do you want to hurt yourself or someone else? Patient reports no desire to harm self or others. Onset of symptoms was February 10, 2024. 15:34 Method Of Arrival: Ambulatory mb9 15:34 Acuity: RAYA 3 mb9 Triage Assessment: 15:35 General: Appears in no apparent distress. Behavior is calm, cooperative. Pain: mb9 Complains of pain in right leg Pain does not radiate. Pain currently is 3 out of 10 on a pain scale. Quality of pain is described as throbbing. EENT: No signs and/or symptoms were reported regarding the EENT system. Neuro: Level of Consciousness is awake, alert, obeys commands, Oriented to person, place, time, situation, Appropriate for age. Cardiovascular: Patient's skin is warm and dry. Respiratory: Airway is patent Respiratory effort is even, unlabored, Respiratory pattern is regular, symmetrical. GI: No signs and/or symptoms were reported involving the gastrointestinal system. : No signs and/or symptoms were reported regarding the genitourinary system. Derm: Skin is pink, warm \\T\\ dry. Musculoskeletal: Reports pain in right leg. Historical: - Allergies: 15:35 PENICILLINS; mb9 - Home Meds: 15:35 Eliquis oral [Active]; mb9 - PMHx: 15:35 Anxiety; Atrial fibrillation; COPD; diabetes mellitus; Hypertensive disorder; Prostate mb9 Cancer; - PSHx: 15:35 None; mb9 - Immunization history:: Adult Immunizations up to date. - Infectious Disease History:: Denies. - Social history:: Smoking status: Patient denies any tobacco usage or history of. Screenin:59 [facility] ED Fall Risk Assessment (Adult) History of falling in the last 3 months, mb9 including since admission No falls in past 3 months (0 pts) Confusion or Disorientation No (0 pts) Intoxicated or Sedated No (0 pts) Impaired Gait No (0 pts) Mobility Assist Device Used No (0 pt) Altered Elimination No (0 pt) Score/Fall Risk Level 0 - 2 = Low Risk Oriented to surroundings, Maintained a safe environment, Educated pt \\T\\ family on fall prevention, incl call for assistance when getting out of bed. Abuse screen: Denies threats or abuse. Nutritional screening: No deficits noted. Tuberculosis screening: No symptoms or risk factors identified. Assessment: 16:59 Reassessment: No changes from previously documented assessment. Patient and/or family mb9 updated on plan of care and expected duration. Pain level reassessed. Patient is alert, oriented x 3, equal unlabored respirations, skin warm/dry/pink. 17:30 General: Appears in no apparent distress. comfortable, well groomed, well developed, kc6 Behavior is calm, cooperative, appropriate for age. Pain: Complains of pain in right leg. Neuro: Level of Consciousness is awake, alert, obeys commands, Oriented to person, place, time, situation, Appropriate for age. Cardiovascular: Capillary refill < 3 seconds. Respiratory: Airway is patent Trachea midline Respiratory effort is even, unlabored, Respiratory pattern is regular, symmetrical. GI: No signs and/or symptoms were reported involving the gastrointestinal system. : No signs and/or symptoms were reported regarding the genitourinary system. EENT: No signs and/or symptoms were reported regarding the EENT system. Derm: No signs and/or symptoms reported regarding the dermatologic system. Skin is intact, is healthy with good turgor, Skin is pink, warm \\T\\ dry. Musculoskeletal: Circulation, motion, and sensation intact. Capillary refill < 3 seconds, Range of motion: intact in all extremities, Swelling present in right leg. 18:30 Reassessment: Patient appears in no apparent distress at this time. No changes from kc6 previously documented assessment. Patient and/or family updated on plan of care and expected duration. Pain level reassessed. Patient is alert, oriented x 3, equal unlabored respirations, skin warm/dry/pink. Vital Signs: 15:34 BP 122 / 59; Pulse 52; Resp 18; Temp 97.2; Pulse Ox 100% ; Weight 85.28 kg; Height 5 mb9 ft. 3 in. ; Pain 3/10; 18:30 BP 126 / 60; Pulse 55; Resp 18 S; Pulse Ox 98% on R/A; kc6 15:34 Body Mass Index 33.30 (85.28 kg, 160.02 cm) mb9 15:34 Pain Scale: Adult mb9 ED Course: 15:31 Patient arrived in ED. mr 15:31 Taco Tsai MD is Attending Physician. ec2 15:35 Triage completed. mb9 15:35 Arm band placed on. mb9 16:27 Initial lab(s) drawn, by ri, sent to lab. Inserted saline lock: 22 gauge in right jg11 antecubital area, using aseptic technique. Blood collected. 16:59 Patient has correct armband on for positive identification. Provided Education on: need mb9 for IV/blood work. 17:00 No provider procedures requiring assistance completed. mb9 17:05 Extremity Venous Uni Ltd US In Process Unspecified. EDCO 17:36 Zahra Kessler, RN is Primary Nurse. kc6 18:31 IV discontinued, intact, bleeding controlled, No redness/swelling at site. Pressure kc6 dressing applied. Administered Medications: No medications were administered Medication: 16:59 VIS not applicable for this client. mb9 Outcome: 17:49 Discharge ordered by . ec2 18:31 Discharged to home ambulatory, kc6 18:31 Condition: good 18:31 Discharge instructions given to patient, Instructed on discharge instructions, follow up and referral plans. medication usage, Demonstrated understanding of instructions, follow-up care, medications, Prescriptions given X 1, 18:31 Patient left the ED. kc6 Signatures: Dispatcher [employer] EDCO Elaina Zaidi, Reg Reg Zahra Kessler, RN RN [email or web address] Elaina Daugherty, RAJ RN mb9 Taco Tsai MD MD ec2 Jorge Michaels [email or web address]
[2024-02-10 19:43] VITALS: BP 126/60; TEMP 97.2; O2SAT 98
== END 2024-02-10 18:31 | disposition home or self-care (01) ==
LOC: ER 15:01
DX: M71.21 Synovial cyst of popliteal space [Baker], right knee (principal)
CPT/HCPCS: 36415; 80048; 85025; 85610; 85730; 93971; 99284

== ENCOUNTER 2024-12-17 11:18 | Emergency (ER) | payer OTHER ==
--- NOTE | 2024-12-17 11:29 | EDPHYS ---
Physician Documentation [facility] Name: Sergey Nye Age: 74 yrs Sex: Male : 1950 Arrival Date: 12/17/2024 Time: 11:18 Bed 19 Private MD: ED Physician Jonh Chan HPI: 12/17 11:26 Chief Complaint: Skin tear to the left elbow after a fall. History of Present Illness: jr11 The patient presented after experiencing a [place] at the [place]. While bent forward, the patient lost balance and fell, landing on their side, L elbow. The patient did not hit their head and experienced no loss of consciousness. There is a skin tear on the left elbow, which prompted the visit due to the patient being on blood thinners. The patient reports tenderness between the shoulder blades but confirms no direct impact to that area during the fall. The patient is unclear about the specific medication used for wound care but confirms it was [facility] prescribed. The patient is not particularly worried but sought evaluation to ensure everything is alright. Review of systems includes no headache or head pain. ROS otherwise negative. . Historical: - Allergies: 11:33 PENICILLINS; me1 - PMHx: 11:33 Anxiety; Atrial fibrillation; COPD; diabetes mellitus; Hypertensive disorder; Prostate me1 Cancer; - Immunization history:: Adult Immunizations up to date. - Infectious Disease History:: Denies. - Social history:: Smoking status: Patient/guardian denies using tobacco, but has a distant history of tobacco abuse. Exam: 11:26 Constitutional: This is a well developed, well nourished patient who is awake, alert, jr11 and in no acute distress. Head/Face: Normocephalic, atraumatic. ENT: Nares patent. No nasal discharge, no septal abnormalities noted. Oropharynx with no redness, swelling, or masses, exudates, or evidence of obstruction, uvula midline. Mucous membranes moist. Neck: Trachea midline, no thyromegaly or masses palpated, and no cervical lymphadenopathy. Supple, full range of motion without nuchal rigidity, or vertebral point tenderness. No Meningismus. Chest/axilla: Normal chest wall appearance and motion. Nontender with no deformity. No lesions are appreciated. Cardiovascular: Regular rate and rhythm with a normal S1 and S2. No gallops, murmurs, or rubs. Normal PMI, no JVD. No pulse deficits. Respiratory: Lungs have equal breath sounds bilaterally, clear to auscultation and percussion. No rales, rhonchi or wheezes noted. No increased work of breathing, no retractions or nasal flaring. Abdomen/GI: Soft, non-tender, with normal bowel sounds. No distension or tympany. No guarding or rebound. No evidence of tenderness throughout. Skin: C-shaped laceration 3 cm, superficial, skin tear, full range of motion otherwise neurovascular intact distally Vital Signs: 11:19 BP 142 / 100; Pulse 51; Resp 17; Temp 98.2; Pulse Ox 100% ; Weight 83.01 kg; Height 5 me1 ft. 8 in. ; Pain 0/10; 12:00 BP 121 / 54; Pulse 49; Resp 16; Temp 98.3; Pulse Ox 99% ; me1 11:19 Body Mass Index 27.82 (83.01 kg, 172.72 cm) me1 11:19 Pain Scale: Adult me1 MDM: 11:25 Medical Screening Exam initiated jr11 11:26 Differential diagnosis: Medical Decision Makin. Skin tear 2. Musculoskeletal pain jr11 (possible sprain or contusion) 3. Monitor for potential complications due to blood thinners 4. Less likely but life-threatening: intracranial hemorrhage (considered due to blood thinners, but no head impact or symptoms) - shared decision making, no CT, states no GARCIA, no significant coup counter coup concern Plan: - Apply non-stick dressing with Vaseline or prescribed antibiotic ointment for the skin tear. - Prescribe Tylenol for pain management. - Advise wound care at least once a day. - Ensure tetanus vaccination is up to date. - Monitor for any signs of complications due to blood thinners. Consider x-ray of the elbow however he has full range of motion states no concern that is broken consider CT of the head however he has had no head injury.. Administered Medications: 11:43 Drug: Acetaminophen PO 1000 mg PO once Route: PO; me1 12:12 Follow up: Response: No adverse reaction; Pain is decreased me1 Disposition Summary: 12/17/24 11:29 Discharge Ordered Notes: Location: Home [facility] Condition: Stable [facility] Diagnosis - Skin tear jr11 Discharge Instructions: - Discharge Summary Sheet jr11 - Skin Tear jr11 Forms: - Medication Reconciliation Form jr11 - Antibiotic Education jr11 - Prescription Opioid Use jr11 - Patient Portal Instructions jr11 - Leadership Thank You Letter jr11 Prescriptions: - mupirocin 2 % Topical ointment - apply 1 application TOPICAL route once; 30 gram tube; Refills: 0, Product jr11 Selection Permitted Signatures: Jonh Chan MD MD jr11 Génesis Rubio RN RN me1
[2024-12-17] MEDS ORDERED: ACETAMINOPHEN 500 MG TAB ONE (11:36)
--- OUTSIDE RECORDS SUMMARY | 2024-12-17 11:36 | XMS REPORT | Continuity of Care Document ---
Author Name Unknown Address [address] [facility] [place] [address] [facility] Address [address] 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 Attending Clinician + [phone] RYAN CHRISTIANSON K.HMurphy Attending Clinician Unavailbaldomero Jeff, [facility] Main Attending Clinician Neal Reid DO Attending Clinician [phone] Doctor Unassigned, [place] Attending Clinician U Perri Armenta MD Attending Clinician [phone] PERRI CALL Attending Clinician Unavailable Akash ANTHONY, Tony Thorpe Attending Clinician Unavail Reddy Richards MD Attending Clinician [phone] CHERYL HUGHES Attending Clinician Unavailable Cheryl Hughes MD Attending Clinician [phone] Elvie Gamboa Admitting Clinician Unavailable Samuel Mcguire Admitting Clinician Unavailable Luci Beyer Admitting Clinician Reddy Stephens MD Admitting Clinician [phone] REDDY SZYMANSKI Admitting Clinician Unavailable Payers Payer Name Policy Type Policy Number Effective Date Expirati on Date Source [employer] MED[employer]ARE ADVANTAGE [id number] 2020 00:00:[address] [facility] [id number] 1999 00:00:00 Problems Condition Name Condition Details Condition Category Status Onset Date Resolution Date Last Treatment Date Treating Clinician Comments Source Fall from ladder, initial encounter Fall from ladder, initial encounter Disease Active 02-13 00:00: 00 [facility] Traumatic fracture of ribs with pneumothor ax, right, closed, initial encounter Traumatic fracture of ribs with pneumothor ax, right, closed, initial encounter Disease Active 02-13 00:00: 00 [facility] JERAMY (acute kidney injury) JERAMY (acute kidney injury) Disease Active 02-13 00:00: 00 [facility] Trauma Trauma Disease Active 02-10 00:00: 00 [facility] Allergies, Adverse Reactions, Alerts Allergy Name Allergy Type Status Severity Reaction(s) Onset Date Inactive Date Treating Clinician Comments Source Penicill ins DA Active U USE COMMENT BUTTON 03-03 00:00: 00 [facility] PENICILL IN DRUG INGREDI Active Unknown-Cmnt 02-10 00:00: 00 [facility] Penicill in Propensi ty to adverse reaction s Active Unknown - See comments 02-10 00:00: 00 [facility] Penicill in Propensi ty to adverse reaction s Active Unknown - See comments 02-10 00:00: 00 [facility] TOMATO DRUG INGREDI Active Swelling 2006-09 00:00: 00 [facility] Tomato Propensi ty to adverse reaction s Active Swelling 2006-09 00:00: [address] [facility] NO KNOWN ALLERGIE S Drug Class Active [facility] Social History Social Habit Start Date Stop Date Quantity Comments Source Sexual orientation U [facility] History of tobacco use Cigarette Smoker [facility] Exposure to SARS-CoV-2 (event) 2021-02-05 00:00:00 2021-03-07 08:25:00 Not sure [facility] History of Social function 2020-12-05 00:00:00 2020-12-05 00:00:00 [facility] Tobacco use and exposure 2020-02-11 00:00:00 2020-02-11 00:00:00 Smokeless tobacco non-user [facility] Sex Assigned At 1950 00:00:00 1950 00:00:00 [facility] Smoking Status Start Date Stop Date Source Unknown if ever smoked [facility] Ex-smoker 2020-10-06 00:00:00 2020-10-06 00:00:00 [facility] Never smoked tobacco [facility] Medications Ordered Medication Name Filled Medication Name Start Date Stop Date Current Medication? Ordering Clinician Indication Dosage Frequency Signature (SIG) Comments Components Source tc 99m-tetrofo smin (MYOVIEW) injection 43.2 millicurie 12-14 15:45: 00 12-14 15:35 :00 No [id number] 43.2mCi 43.2 millicurie , Intravenou s, ONCE, 1 dose, Camilla 12/14/20 at 1045, Routine [facility] tc 99m-tetrofo smin (MYOVIEW) injection 16.3 millicurie 12-14 13:15: 00 12-14 13:07 :00 No [id number] 16.3mCi 16.3 millicurie , Intravenou s, ONCE, 1 dose, Camilla 12/14/20 at 0815, Routine [facility] lisinopriL 20 mg tablet 12-05 00:00: 00 Yes 20mg Take 1 tablet by mouth daily. [facility] magnesium chloride (SLOW-MAG) 71.5 mg tablet 12-05 00:00: 00 Yes [id number] 71.5mg Take 1 tablet by mouth daily. [facility] aspirin 81 mg chewable tablet 10-06 17:10: 53 Yes 81mg Take 81 mg by mouth daily. [facility] omeprazole 20 mg capsule 10-06 17:10: 53 Yes 20mg Take 20 mg by mouth daily. [facility] tamsulosin 0.4 mg 24 hr capsule 10-06 17:10: 53 Yes .4mg Take 0.4 mg by mouth daily. [facility] atorvastati n 10 mg tablet 10-06 17:10: 53 Yes 5mg Take 5 mg by mouth at bedtime. [facility] FLUoxetine 10 mg capsule 10-06 17:10: 53 Yes 10mg Take 10 mg by mouth daily. [facility] metFORMIN 500 mg 24 hr tablet 10-06 17:10: 40 10-06 00:00 :00 No 500mg Take 500 mg by mouth daily with breakfast. [facility] aspirin 81 mg chewable tablet 10-06 11:10: 53 Yes 81mg Take 81 mg by mouth daily. [facility] omeprazole 20 mg capsule 10-06 11:10: 53 Yes 20mg Take 20 mg by mouth daily. [facility] tamsulosin 0.4 mg 24 hr capsule 10-06 11:10: 53 Yes .4mg Take 0.4 mg by mouth daily. [facility] atorvastati n 10 mg tablet 10-06 11:10: 53 Yes 5mg Take 5 mg by mouth at bedtime. [facility] FLUoxetine 10 mg capsule 10-06 11:10: 53 Yes 10mg Take 10 mg by mouth daily. [facility] amLODIPine 10 mg tablet 09-26 00:00: 00 Yes [id number] 10mg Take 1 tablet by mouth daily. [facility] magnesium oxide (MAGOX) 400 mg (241.3 mg magnesium) tablet 1-19 00:00: 00 12-05 00:00 :00 No 400mg Take 1 tablet by mouth daily. [facility] metformin ER 500 mg 24 hr tablet 1-11 00:00: 00 03-07 00:00 :00 No TAKE TWO TABLETS BY MOUTH TWICE A DAY FOR DIABETES *DO NOT CRUSH* CHANGE IN FORMULATIO N [facility] AMLODIPINE 10 mg tablet 2019-09 2-08 00:00: 00 09-17 00:00 :00 No [id number] Take 1 tablet by mouth once daily [facility] magnesium oxide (MAGOX) 400 mg (241.3 mg magnesium) tablet 813 00:00: 00 09-17 00:00 :00 No 400mg Take 1 tablet by mouth daily. Call the office for more informatio n [facility] insulin aspart, niacinamide , 100 unit/mL (3 mL) InPn 04-13 00:00: 00 Yes INJECT 6 UNITS UNDER THE SKIN THREE TIMES A DAY 5 MINUTES BEFORE MEALS FOR DIABETES. DO NOT ADMINISTER IF A MEAL IS MISSED [facility] hydroCHLORO thiazide 25 mg tablet 03-24 00:00: 00 Yes [id number] 25mg Take 1 tablet by mouth daily. [facility] amLODIPine 10 mg tablet 03-24 00:00: 00 08-15 00:00 :00 No [id number] 10mg Take 1 tablet by mouth daily. [facility] docusate 100 mg capsule 02-17 00:00: 00 Yes [id number] 100mg Take 1 capsule by mouth daily. [facility] hydroCHLORO thiazide 12.5 mg capsule 02-17 00:00: 00 03-24 00:00 :00 No [id number] 12.5mg Take 1 capsule by mouth daily. [facility] amLODIPine 10 mg tablet 02-17 00:00: 00 03-23 00:00 :00 No [id number] 10mg Take 1 tablet by mouth daily. [facility] metFORMIN 500 mg 24 hr tablet 02-16 17:50: 22 Yes 500mg Take 500 mg by mouth daily with breakfast. [facility] aspirin 81 mg chewable tablet 02-16 17:50: 22 Yes 81mg Take 81 mg by mouth daily. [facility] omeprazole 20 mg capsule 02-16 17:50: 22 Yes 20mg Take 20 mg by mouth daily. [facility] tamsulosin 0.4 mg 24 hr capsule 02-16 17:50: 22 Yes .4mg Take 0.4 mg by mouth daily. [facility] atorvastati n 10 mg tablet 02-16 17:50: 22 Yes 5mg Take 5 mg by mouth at bedtime. [facility] FLUoxetine 10 mg capsule 02-16 17:50: 22 Yes 10mg Take 10 mg by mouth daily. [facility] hydroCHLORO thiazide 25 mg tablet 02-16 15:13: 33 02-16 00:00 :00 No 25mg Take 25 mg by mouth daily. [facility] lisinopril 20 mg tablet 02-16 15:13: 33 02-16 00:00 :00 No 20mg Take 20 mg by mouth daily. [facility] hydroCHLORO thiazide (ESIDRIX) capsule 12.5 mg 02-16 14:00: 00 Yes 12.5mg 12.5 mg, Oral, DAILY, First dose on [place] 02/17/20 at 0900, Until Discontinu ed, Routine [facility] amLODIPine (NORVASC) tablet 10 mg 02-16 14:00: 00 Yes 10mg 10 mg, Oral, DAILY, First dose on [place] 02/17/20 at 0900, Until Discontinu ed, Routine [facility] FLUoxetine (PROZAC) capsule 10 mg 02-16 14:00: 00 Yes 10mg 10 mg, Oral, DAILY, First dose on [place] 02/17/20 at 0900, Until Discontinu ed, Routine [facility] insulin detemir U-100 (LEVEMIR U-100 INSULIN) injection 45 Units 02-16 02:00: 00 Yes 45U 45 Units, Subcutaneo us, QHS, First dose on Fri02/16/20 at 2100, Until Discontinu ed, Routine [facility] Sliding Scale Insulin - Aspart (NOVOLOG) + Fsbg Testing 02-16 01:00: 00 Yes Subcutaneo us, Q4H, First dose on Fri02/16/20 at 2000, Until Discontinu ed, Routine [facility] acetaminoph en 500 mg tablet 02-16 00:00: 00 Yes [id number] 1000mg Take 2 tablets by mouth every 8 (eight) hours as needed for Pain. [facility] methocarbam ol 500 mg tablet 02-16 00:00: 00 03-08 00:00 :00 No [id number] 500mg Take 1 tablet by mouth 4 (four) times daily as needed (muscle spasms). [facility] magnesium hydroxide (MILK OF MAGNESIA) 400 mg/5 mL suspension 30 mL 02-15 23:00: 00 02-16 00:32 :00 No 30mL 30 mL, Oral, ONCE, 1 dose, Fri02/16/20 at 1800, Routine [facility] bisacodyL (DULCOLAX) suppository 10 mg 02-15 21:30: 00 Yes 10mg 10 mg, Rectal, BID, First dose on Fri02/16/20 at 1630, Until Discontinu ed, Routine [facility] Sliding Scale Insulin - Aspart (NOVOLOG) + Fsbg Testing 02-15 17:00: 00 02-15 21:27 :26 No Subcutaneo us, Q4H, First dose on Fri02/16/20 at 1200, Until Discontinu ed, Routine [facility] Polyethylen e Glycol 3350 (MIRALAX) powder 17 g 02-15 13:15: 00 Yes 17g 17 g, Oral, BID, First dose on Fri02/16/20 at 0815, Until Discontinu ed, Routine [facility] D5W 0.45% NaCl (1/2NS) 1 L + KCL 20 mEq 02-15 11:00: 00 02-15 12:13 :20 No IV Infusion, at 20 mL/hr, CONTINUOUS , Starting Fri02/16/20 at 0600, Until Fri02/16/20 at 0713, Routine [facility] amLODIPine (NORVASC) tablet 5 mg 02-14 14:00: 00 02-16 11:43 :37 No 5mg 5 mg, Oral, DAILY, First dose on Fri02/15/20 at 0900, Until Discontinu ed, Routine [facility] D5W 0.45% NaCl (1/2NS) 1 L + KCL 20 mEq 02-14 12:45: 00 02-15 10:48 :43 No IV Infusion, at 100 mL/hr, CONTINUOUS , Starting Fri02/15/20 at 0745, Until Fri02/16/20 at 0548, [facility] 500 mL 02-13 16:30: 00 02-13 16:08 :00 No 500mL at 999 mL/hr, 500 mL, Intravenou s, ONCE, 1 dose, Fri02/14/20 at 1130, [facility] tamsulosin (FLOMAX) capsule 0.4 mg 02-13 14:00: 00 Yes .4mg 0.4 mg, Oral, DAILY, First dose on Fri02/14/20 at 0900, Until Discontinu ed, Routine [facility] omeprazole (PRILOSEC) capsule 20 mg 02-13 14:00: 00 Yes 20mg 20 mg, Oral, DAILY, First dose on Fri02/14/20 at 0900, Until Discontinu ed, [facility] chewable tablet 81 mg 02-13 14:00: 00 Yes 81mg 81 mg, Oral, DAILY, First dose on Fri02/14/20 at 0900, Until Discontinu ed, [facility] 500 mL 02-13 03:15: 00 02-13 02:09 :00 No 500mL at 999 mL/hr, 500 mL, Intravenou s, ONCE, 1 dose, 02/13/20 at 2215, Routine [facility] atorvastati n (LIPITOR) tablet 5 mg 02-13 02:00: 00 Yes 5mg 5 mg, Oral, QHS, First dose on 02/13/20 at 2100, Until Discontinu ed, Routine [facility] lactated ringers IV infusion 1,000 mL 02-12 19:15: 00 02-12 18:24 :00 No 1000mL at 999 mL/hr, 1,000 mL, Intravenou s, ONCE, 1 dose, [place] 02/13/20 at 1415, Routine [facility] bisacodyL (DULCOLAX) suppository 10 mg 02-12 19:15: 00 02-12 19:44 :00 No 10mg 10 mg, Rectal, ONCE NOW, 1 dose, [place] 02/13/20 at 1415, [facility] ondans[facility] (ZOFRAN (PF)) injection 4 mg 02-12 15:36: 56 Yes 4mg 4 mg, Slow IV Push, Q6HPRN, Starting 02/13/20 at 1036, Until Discontinu ed, Routine, Nausea and Vomiting (N/V) [facility] docusate (COLACE) capsule 100 mg 02-11 14:00: 00 Yes 100mg 100 mg, Oral, DAILY, First dose on Fri02/12/20 at 0900, Until Discontinu ed, Routine [facility] methocarbam ol (ROBAXIN) tablet 500 mg 02-11 01:00: 00 Yes 500mg 500 mg, Oral, QID, First dose on Fri02/11/20 at 2000, Until Discontinu ed, Routine [facility] gabapentin (NEURONTIN) capsule 100 mg 02-11 01:00: 00 02-13 13:29 :41 No 100mg 100 mg, Oral, TID, First dose on Fri02/11/20 at 2000, Until Discontinu ed, Routine [facility] morpHINE 30 mg/30 mL (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 acetaminoph en (TYLENOL) tablet 1,000 mg 02-10 23:00: 00 Yes 1000mg 1,000 mg, Oral, Q6H, First dose on Fri02/11/20 at 1800, Until Discontinu ed, Routine [facility] Sliding Scale Insulin - Aspart (NOVOLOG) + Fsbg Testing 02-10 22:00: 00 02-15 13:15 :25 No Subcutaneo us, TID MEALS+HS, First dose on Fri02/11/20 at 1700, Until Discontinu ed, Routine [facility] celecoxib (CELEBREX) capsule 100 mg 02-10 22:00: 00 02-12 18:06 :55 No 100mg 100 mg, Oral, BID MEALS, First dose on Fri02/11/20 at 1700, Until Discontinu ed, Routine [facility] FENTanyl PF (SUBLIMAZE (PF)) injection 100 mcg 02-10 21:45: 00 02-10 20:31 :00 No 100ug 100 mcg, Slow IV Push, ONCE, 1 dose, Fri02/11/20 at 1645, STAT [facility] FENTanyl PF (SUBLIMAZE (PF)) injection 75 mcg 02-10 19:00: 00 02-10 17:52 :00 No 75ug 75 mcg, Slow IV Push, ONCE, 1 dose, Fri02/11/20 at 1400, STAT [facility] FENTanyl PF (SUBLIMAZE (PF)) injection 75 mcg 02-10 18:45: 00 02-10 17:37 :00 No 75ug 75 mcg, Slow IV Push, ONCE, 1 dose, Fri02/11/20 at 1345, STAT [facility] ceFAZolin (ANCEF) 1,000 mg in NaCl 0.9% (NS) 50 mL MINI-BAG 02-10 18:45: 00 02-10 18:06 :00 No 1000mg 1,000 mg, IV Piggyback, ONCE, 1 dose, 02/11/20 at 1345, 50 mL
Reas on for Anti-Infec tive: Surgical Prophylaxi s
Surgi arely Prophylaxi s: Cardiothor acic
Du ration of therapy: within [address] [facility] ondansetron (ZOFRAN (PF)) injection 4 mg 02-10 18:15: 00 02-10 17:05 :00 No 4mg 4 mg, Slow IV Push, ONCE, 1 dose, 02/11/20 at 1315, DANNY [facility] FENTanyl PF (SUBLIMAZE (PF)) injection 75 mcg 02-10 18:15: 00 02-10 17:04 :00 No 75ug 75 mcg, Slow IV Push, ONCE, 1 dose, 02/11/20 at 1315, Routine [facility] iohexol (OMNIPAQUE 350 BULK-150 mL) injection 120 mL 02-10 17:45: 00 02-10 17:32 :00 No 120mL 120 mL, Intravenou s, ONCE, 1 dose, 02/11/20 at 1245, Routine [facility] contrast previously administere d 0 mL 02-10 17:45: 00 02-10 17:32 :00 No Intravenou s, ONCE, 1 dose, 02/11/20 at 1245, Routine [facility] Immunizations Ordered Immunization Name Filled Immunization Name Date Status Comments Source SARS-COV-2 COVID-19 PFIZER VACCINE 2020-11-14 00:00:00 Completed [facility] SARS-COV-2 COVID-19 PFIZER VACCINE 2020-11-14 00:00:00 Completed [facility] SARS-COV-2 COVID-19 PFIZER VACCINE 2020-11-14 00:00:00 Completed [facility] SARS-COV-2 COVID-19 PFIZER VACCINE 2020-11-14 00:00:00 Completed [facility] SARS-COV-2 COVID-19 PFIZER VACCINE 2020-11-14 00:00:00 Completed [facility] SARS-COV-2 COVID-19 PFIZER VACCINE 2020-11-14 00:00:00 Completed [facility] SARS-COV-2 COVID-19 PFIZER VACCINE 2020-11-14 00:00:00 Completed [facility] SARS-COV-2 COVID-19 PFIZER VACCINE 2020-11-14 00:00:00 Completed [facility] SARS-COV-2 COVID-19 PFIZER VACCINE 2020-11-14 00:00:00 Completed [facility] SARS-COV-2 COVID-19 PFIZER VACCINE 2020-11-14 00:00:00 Completed [facility] Influenza High Dose 2020-06-22 00:00:00 Completed [facility] Influenza High Dose 2020-06-22 00:00:00 Completed [facility] Influenza High Dose 2020-06-22 00:00:00 Completed [facility] Influenza High Dose 2020-06-22 00:00:00 Completed [facility] Influenza High Dose 2020-06-22 00:00:00 Completed [facility] Influenza High Dose 2020-06-22 00:00:00 Completed [facility] Influenza High Dose 2020-06-22 00:00:00 Completed [facility] Influenza High Dose 2020-06-22 00:00:00 Completed [facility] Influenza High Dose 2020-06-22 00:00:00 Completed [facility] Influenza High Dose 2020-06-22 00:00:00 Completed [facility] Influenza High Dose 2020-06-22 00:00:00 Completed [facility] Influenza High Dose 2020-06-22 00:00:00 Completed [facility] Influenza High Dose 2020-06-22 00:00:00 Completed [facility] Influenza High Dose 2020-06-22 00:00:00 Completed [facility] Pneumococcal Polysaccharide, PPSV23 (PNEUMOVAX) 2019-03-17 00:00:00 Completed [facility] Pneumococcal Polysaccharide, PPSV23 (PNEUMOVAX) 2019-03-17 00:00:00 Completed [facility] Pneumococcal Polysaccharide, PPSV23 (PNEUMOVAX) 2019-03-17 00:00:00 Completed [facility] Pneumococcal Polysaccharide, PPSV23 (PNEUMOVAX) 2019-03-17 00:00:00 Completed [facility] Pneumococcal Polysaccharide, PPSV23 (PNEUMOVAX) 2019-03-17 00:00:00 Completed [facility] Pneumococcal Polysaccharide, PPSV23 (PNEUMOVAX) 2019-03-17 00:00:00 Completed [facility] Pneumococcal Polysaccharide, PPSV23 (PNEUMOVAX) 2019-03-17 00:00:00 Completed [facility] Pneumococcal Polysaccharide, PPSV23 (PNEUMOVAX) 2019-03-17 00:00:00 Completed [facility] Pneumococcal Polysaccharide, PPSV23 (PNEUMOVAX) 2019-03-17 00:00:00 Completed [facility] Pneumococcal Polysaccharide, PPSV23 (PNEUMOVAX) 2019-03-17 00:00:00 Completed [facility] Pneumococcal Polysaccharide, PPSV23 (PNEUMOVAX) 2019-03-17 00:00:00 Completed [facility] Pneumococcal Polysaccharide, PPSV23 (PNEUMOVAX) 2019-03-17 00:00:00 Completed [facility] Pneumococcal Polysaccharide, PPSV23 (PNEUMOVAX) 2019-03-17 00:00:00 Completed [facility] Pneumococcal Polysaccharide, PPSV23 (PNEUMOVAX) 2019-03-17 00:00:00 Completed [facility] Pneumococcal 13 Conjugate, PCV13 (Prevnar 13) 2017-11-18 00:00:00 Completed [facility] Pneumococcal 13 Conjugate, PCV13 (Prevnar 13) 2017-11-18 00:00:00 Completed [facility] Pneumococcal 13 Conjugate, PCV13 (Prevnar 13) 2017-11-18 00:00:00 Completed [facility] Pneumococcal 13 Conjugate, PCV13 (Prevnar 13) 2017-11-18 00:00:00 Completed [facility] Pneumococcal 13 Conjugate, PCV13 (Prevnar 13) 2017-11-18 00:00:00 Completed [facility] Pneumococcal 13 Conjugate, PCV13 (Prevnar 13) 2017-11-18 00:00:00 Completed [facility] Pneumococcal 13 Conjugate, PCV13 (Prevnar 13) 2017-11-18 00:00:00 Completed [facility] Pneumococcal 13 Conjugate, PCV13 (Prevnar 13) 2017-11-18 00:00:00 Completed [facility] Pneumococcal 13 Conjugate, PCV13 (Prevnar 13) 2017-11-18 00:00:00 Completed [facility] Pneumococcal 13 Conjugate, PCV13 (Prevnar 13) 2017-11-18 00:00:00 Completed [facility] Influenza High Dose 2017-06-27 00:00:00 Completed [facility] Influenza High Dose 2017-06-27 00:00:00 Completed [facility] Influenza High Dose 2017-06-27 00:00:00 Completed [facility] Influenza High Dose 2017-06-27 00:00:00 Completed [facility] Influenza High Dose 2017-06-27 00:00:00 Completed [facility] Influenza High Dose 2017-06-27 00:00:00 Completed [facility] Influenza High Dose 2017-06-27 00:00:00 Completed [facility] Influenza High Dose 2017-06-27 00:00:00 Completed [facility] Influenza High Dose 2017-06-27 00:00:00 Completed [facility] Influenza High Dose 2017-06-27 00:00:00 Completed [facility] Influenza Virus Vaccine 2015-06-28 00:00:00 Completed [facility] Influenza Virus Vaccine (3+ yrs) 2015-06-28 00:00:00 Completed [facility] Influenza Virus Vaccine 2015-06-28 00:00:00 Completed [facility] Influenza Virus Vaccine (3+ yrs) 2015-06-28 00:00:00 Completed [facility] Influenza Virus Vaccine 2015-06-28 00:00:00 Completed [facility] Influenza Virus Vaccine (3+ yrs) 2015-06-28 00:00:00 Completed [facility] Influenza Virus Vaccine 2015-06-28 00:00:00 Completed [facility] Influenza Virus Vaccine (3+ yrs) 2015-06-28 00:00:00 Completed [facility] Influenza Virus Vaccine 2015-06-28 00:00:00 Completed [facility] Influenza Virus Vaccine (3+ yrs) 2015-06-28 00:00:00 Completed [facility] Influenza Virus Vaccine 2015-06-28 00:00:00 Completed [facility] Influenza Virus Vaccine (3+ yrs) 2015-06-28 00:00:00 Completed [facility] Influenza Virus Vaccine 2015-06-28 00:00:00 Completed [facility] Influenza Virus Vaccine (3+ yrs) 2015-06-28 00:00:00 Completed [facility] Influenza Virus Vaccine 2015-06-28 00:00:00 Completed [facility] Influenza Virus Vaccine (3+ yrs) 2015-06-28 00:00:00 Completed [facility] Influenza Virus Vaccine 2015-06-28 00:00:00 Completed [facility] Influenza Virus Vaccine (3+ yrs) 2015-06-28 00:00:00 Completed [facility] Influenza Virus Vaccine 2015-06-28 00:00:00 Completed [facility] Influenza Virus Vaccine (3+ yrs) 2015-06-28 00:00:00 Completed [facility] TDAP 2013-06-23 00:00:00 Completed [facility] TDAP 2013-06-23 00:00:00 Completed [facility] TDAP 2013-06-23 00:00:00 Completed [facility] TDAP 2013-06-23 00:00:00 Completed [facility] TDAP 2013-06-23 00:00:00 Completed [facility] TDAP 2013-06-23 00:00:00 Completed [facility] TDAP 2013-06-23 00:00:00 Completed [facility] TDAP 2013-06-23 00:00:00 Completed [facility] TDAP 2013-06-23 00:00:00 Completed [facility] TDAP 2013-06-23 00:00:00 Completed [facility] Zoster(Zostavax)( ingles) 2012-06-03 00:00:00 Completed [facility] Zoster(Zostavax)( ingles) 2012-06-03 00:00:00 Completed [facility] Zoster(Zostavax)( ingles) 2012-06-03 00:00:00 Completed [facility] Zoster(Zostavax)( ingles) 2012-06-03 00:00:00 Completed [facility] Zoster(Zostavax)( ingles) 2012-06-03 00:00:00 Completed [facility] Zoster(Zostavax)( arash) 2012-06-03 00:00:00 Completed [facility] Zoster(Zostavax)( arash) 2012-06-03 00:00:00 Completed [facility] Zoster(Zostavax)( arash) 2012-06-03 00:00:00 Completed [facility] Zoster(Zostavax)( arash) 2012-06-03 00:00:00 Completed [facility] 2012-06-03 00:00:00 Completed [facility] Influenza Virus Vaccine 2005-06-26 00:00:00 Completed [facility] Influenza Virus Vaccine 2005-06-26 00:00:00 Completed [facility] Influenza Virus Vaccine 2005-06-26 00:00:00 Completed [facility] Influenza Virus Vaccine 2005-06-26 00:00:00 Completed [facility] Influenza Virus Vaccine 2005-06-26 00:00:00 Completed [facility] Influenza Virus Vaccine 2005-06-26 00:00:00 Completed [facility] Influenza Virus Vaccine 2005-06-26 00:00:00 Completed [facility] Influenza Virus Vaccine 2005-06-26 00:00:00 Completed [facility] Influenza Virus Vaccine 2005-06-26 00:00:00 Completed [facility] Influenza Virus Vaccine 2005-06-26 00:00:00 Completed [facility] Influenza Virus Vaccine - Whole 1999-07-10 00:00:00 Completed [facility] Influenza Virus Vaccine - Whole 1999-07-10 00:00:00 Completed [facility] Influenza Virus Vaccine - Whole 1999-07-10 00:00:00 Completed [facility] Influenza Virus Vaccine - Whole 1999-07-10 00:00:00 Completed [facility] Influenza Virus Vaccine - Whole 1999-07-10 00:00:00 Completed [facility] Influenza Virus Vaccine - Whole 1999-07-10 00:00:00 Completed [facility] Influenza Virus Vaccine - Whole 1999-07-10 00:00:00 Completed [facility] Influenza Virus Vaccine - Whole 1999-07-10 00:00:00 Completed [facility] Influenza Virus Vaccine - Whole 1999-07-10 00:00:00 Completed [facility] Influenza Virus Vaccine - Whole 1999-07-10 00:00:00 Completed [facility] Tetanus/Diptheria 1999-04-19 00:00:00 Completed [facility] DTP 1999-04-19 00:00:00 Completed [facility] Tetanus/Diptheria 1999-04-19 00:00:00 Completed [facility] DTP 1999-04-19 00:00:00 Completed [facility] Tetanus/Diptheria 1999-04-19 00:00:00 Completed [facility] DTP 1999-04-19 00:00:00 Completed [facility] Tetanus/Diptheria 1999-04-19 00:00:00 Completed [facility] DTP 1999-04-19 00:00:00 Completed [facility] Tetanus/Diptheria 1999-04-19 00:00:00 Completed [facility] DTP 1999-04-19 00:00:00 Completed [facility] Tetanus/Diptheria 1999-04-19 00:00:00 Completed [facility] DTP 1999-04-19 00:00:00 Completed [facility] Tetanus/Diptheria 1999-04-19 00:00:00 Completed [facility] DTP 1999-04-19 00:00:00 Completed [facility] Tetanus/Diptheria 1999-04-19 00:00:00 Completed [facility] DTP 1999-04-19 00:00:00 Completed [facility] Tetanus/Diptheria 1999-04-19 00:00:00 Completed [facility] DTP 1999-04-19 00:00:00 Completed [facility] Tetanus/Diptheria 1999-04-19 00:00:00 Completed [facility] DTP 1999-04-19 00:00:00 Completed [facility] Influenza Virus Vaccine Unknown Completed [facility] Influenza High Dose Unknown Completed [facility] Pneumococcal Polysaccharide, PPSV23 (PNEUMOVAX) Unknown Completed [facility] Zoster(Zostavax)(Sh ingles) Unknown Completed [facility] Tetanus/Diptheria Unknown Completed [facility] TDAP Unknown Completed [facility] Pneumococcal 13 Conjugate, PCV13 (Prevnar 13) Unknown Completed [facility] Influenza Virus Vaccine - Whole Unknown Completed [facility] acute [facility] SARS-COV-2 COVID-19 PFIZER VACCINE Unknown Completed [facility] DTP Unknown Completed [facility] Influenza Virus Vaccine Unknown Completed [facility] Influenza High Dose Unknown Completed [facility] Pneumococcal Polysaccharide, PPSV23 (PNEUMOVAX) Unknown Completed [facility] Zoster(Zostavax)(Sh ingles) Unknown Completed [facility] Tetanus/Diptheria Unknown Completed Un [facility] TDAP Unknown Completed [facility] Pneumococcal 13 Conjugate, PCV13 (Prevnar 13) Unknown Completed [facility] Influenza Virus Vaccine - Whole Unknown Completed [facility] acute [facility] DTP Unknown Completed [facility] Influenza Virus Vaccine Unknown Completed [facility] Influenza High Dose Unknown Completed [facility] Pneumococcal Polysaccharide, PPSV23 (PNEUMOVAX) Unknown Completed [facility] Zoster(Zostavax)(Sh ingles) Unknown Completed [facility] Tetanus/Diptheria Unknown Completed Un [facility] TDAP Unknown Completed [facility] Pneumococcal 13 Conjugate, PCV13 (Prevnar 13) Unknown Completed [facility] Influenza Virus Vaccine - Whole Unknown Completed [facility] acute [facility] SARS-COV-2 COVID-19 PFIZER VACCINE Unknown Completed [facility] DTP Unknown Completed [facility] Influenza Virus Vaccine Unknown Completed [facility] Influenza High Dose Unknown Completed [facility] Pneumococcal Polysaccharide, PPSV23 (PNEUMOVAX) Unknown Completed [facility] Zoster(Zostavax)(Sh ingles) Unknown Completed [facility] Tetanus/Diptheria Unknown [facility] Completed [facility] Pneumococcal 13 Conjugate, PCV13 (Prevnar 13) Unknown Completed [facility] Influenza Virus Vaccine - Whole Unknown Completed [facility] acute [facility] SARS-COV-2 COVID-19 PFIZER VACCINE Unknown Completed [facility] DTP Unknown Completed [facility] Vital Signs Vital Name Observation Time Observation Value Comments S ource Systolic blood pressure 2021-03-07 13:45:00 132 mm[Hg] General acute hospital Diastolic blood pressure 2021-03-07 13:45:00 73 mm[Hg] General acute hospital Heart rate 2021-03-07 13:45:00 54 /min [facility] Body temperature 2021-03-07 13:44:00 35.67 Suze [facility] Body height 2021-03-07 13:44:00 170.2 cm [facility] Body weight 2021-03-07 13:44:00 81.693 kg [facility] BMI 2021-03-07 13:44:00 28.21 kg/m2 [facility] Oxygen saturation in Arterial blood by Pulse oximetry 2021-03-07 13:44:00 97 /min General acute hospital Systolic blood pressure 2020-12-05 18:53:00 120 mm[Hg] General acute hospital Diastolic blood pressure 2020-12-05 18:53:00 72 mm[Hg] General acute hospital Heart rate 2020-12-05 18:53:00 67 /min [facility] Body temperature 2020-12-05 18:51:00 36.06 Suze [facility] Body height 2020-12-05 18:51:00 170.2 cm [facility] Body weight 2020-12-05 18:51:00 80.786 kg General acute hospital BMI 2020-12-05 18:51:00 27.89 kg/m2 [facility] Oxygen saturation in Arterial blood by Pulse oximetry 2020-12-05 18:51:00 96 /min General acute hospital Systolic blood pressure 2020-10-06 17:23:00 131 mm[Hg] General acute hospital Diastolic blood pressure 2020-10-06 17:23:00 72 mm[Hg] General acute hospital Heart rate 2020-10-06 17:23:00 62 /min [facility] Respiratory rate 2020-10-06 17:13:00 19 /min [facility] Body height 2020-10-06 17:13:00 170.2 cm [facility] Body weight 2020-10-06 17:13:00 82.872 kg General acute hospital BMI 2020-10-06 17:13:00 28.61 kg/m2 General acute hospital Oxygen saturation in Arterial blood by Pulse oximetry 2020-10-06 17:13:00 95 /min General acute hospital Systolic blood pressure 2020-02-29 20:25:00 178 mm[Hg] General acute hospital Diastolic blood pressure 2020-02-29 20:25:00 64 mm[Hg] General acute hospital Heart rate 2020-02-29 20:25:00 71 /min [facility] Body temperature 2020-02-29 20:25:00 36.83 Suze [facility] Respiratory rate 2020-02-29 20:25:00 18 /min [facility] Body weight 2020-02-29 20:25:00 81.375 kg General acute hospital BMI 2020-02-29 20:25:00 24.33 kg/m2 General acute hospital Systolic blood pressure 2020-02-17 12:41:00 181 mm[Hg] General acute hospital Diastolic blood pressure 2020-02-17 12:41:00 68 mm[Hg] General acute hospital Heart rate 2020-02-17 12:41:00 49 /min [facility] Body temperature 2020-02-17 12:41:00 36.17 Suze [facility] Respiratory rate 2020-02-17 12:41:00 16 /min [facility] Oxygen saturation in Arterial blood by Pulse oximetry 2020-02-17 12:41:00 94 /min General acute hospital Body height 2020-02-11 20:19:32 182.9 cm General acute hospital Body weight 2020-02-11 20:18:27 81.647 kg General acute hospital BMI 2020-02-11 20:18:27 24.41 kg/m2 General acute hospital Systolic blood pressure 2020-02-11 19:00:00 92 mm[Hg] General acute hospital Diastolic blood pressure 2020-02-11 19:00:00 55 mm[Hg] General acute hospital Heart rate 2020-02-11 19:00:00 78 [facility] 2020-02-11 19:00:00 36.17 Suze [facility] Respiratory rate 2020-02-11 19:00:00 19 /min [facility] Oxygen saturation in Arterial blood by Pulse oximetry 2020-02-11 19:00:00 95 /min [facility] Body weight 2020-02-11 16:55:35 81.647 kg General acute hospital BMI 2020-02-11 16:55:35 28.19 kg/m2 General acute hospital Body height 2020-02-11 06:55:00 170.2 cm General acute hospital Procedures Procedure Date / Time Performed Performing Clinician Source [id number] 2023-04-17 00:00:00 KYRPO [facility] [id number] 2023-04-17 00:00:00 KYRPO [facility] [id number] 2023-03-04 00:00:00 CHAAB.01 [facility] [id number] 2023-03-04 00:00:00 CHAAB.01 [facility] [id number] 2023-03-04 00:00:00 CHAAB.01 [facility] [id number] 2023-03-04 00:00:00 CHAAB.01 [facility] [id number] 2023-03-04 00:00:00 CHAAB.01 [facility] [id number] 2023-03-04 00:00:00 CHAAB.01 [facility] [id number] 2023-03-04 00:00:00 CHAAB.01 [facility] [id number] 2023-03-04 00:00:00 CHAAB.01 [facility] [id number] 2023-03-04 00:00:00 CHAAB.01 [facility] [id number] 2023-03-04 00:00:00 CHAAB.01 [facility] MO ELECTROCARDIOGRAM, COMPLETE 2020-10-06 17:23:45 Ryan Christianson [facility] ASSIGNMENT OF BENEFITS 2020-02-29 20:10:25 Docto r Unassigned, Bucklin [facility] POCT GLUCOSE (AUTOMATED) 2020-02-17 12:38:00 [facility] (NA, K, CL, CO2, GLUCOSE, BUN, CREATININE, CA) 2020-02-17 09:08:00 Sathya Cardoso [facility] CBC WITH DIFFERENTIAL 2020-02-17 09:08:00 Arely Cardoso [facility] POCT GLUCOSE (AUTOMATED) 2020-02-17 09:03:00 [facility]ST 1 VW 2020-02-17 08:38:31 Luís Tatum [facility] POCT GLUCOSE (AUTOMATED) 2020-02-17 05:33:00 Person, Omaira [facility] POCT GLUCOSE (AUTOMATED) 2020-02-17 01:55:00 Person, Omaira [facility] POCT GLUCOSE (AUTOMATED) 2020-02-17 01:04:00 Person, Omaira [facility] POCT GLUCOSE (AUTOMATED) 2020-02-16 21:06:00 Person, Omaira [facility] POCT GLUCOSE (AUTOMATED) 2020-02-16 16:40:00 Person, Omaira [facility] TROPONIN I 2020-02-16 12:17:00 Cole Rivas [facility] BASIC METABOLIC PANEL (NA, K, CL, CO2, GLUCOSE, BUN, CREATININE, CA) 2020-02-16 10:29:00 Sathya Cardoso [facility] CBC WITH DIFFERENTIAL 2020-02-16 10:29:00 Arely Cardoso [facility] GLYCOSYLATED HEMOGLOBIN (A1C) 2020-02-16 10:29:00 Luís Tatum [facility] XR CHEST 1 VW 2020-02-16 09:56:25 Mckenzie Zavala [facility] POCT GLUCOSE (AUTOMATED) 2020-02-16 05:03:00 [facility] ([facility]OMATED) 2020-02-16 02:07:00 Person, Omaira [facility] POCT GLUCOSE (AUTOMATED) 2020-02-15 22:35:00 Person, Omaira [facility] POCT GLUCOSE (AUTOMATED) 2020-02-15 13:12:00 [facility] US RETROPERITONEAL COMPLETE 2020-02-15 09:33:19 Benoit Laboy [facility] BASIC METABOLIC PANEL (NA, K, CL, CO2, GLUCOSE, BUN, CREATININE, CA) 2020-02-15 09:18:00 Sathya Cardoso [facility] CBC WITH DIFFERENTIAL 2020-02-15 09:18:00 Arely Cardoso [facility] XR CHEST 1 VW 2020-02-15 09:15:00 Jose [facility] SODIUM URINE 2020-02-15 05:02:00 German Ramírez [facility] POCT GLUCOSE (AUTOMATED) 2020-02-15 01:56:00 Person, Omaira [facility] URINALYSIS 2020-02-15 00:50:00 Jose [facility] POCT GLUCOSE (AUTOMATED) 2020-02-14 23:01:00 Person, Omaira [facility] POCT GLUCOSE (AUTOMATED) 2020-02-14 22:20:00 Person, Omaira [facility] XR CHEST 1 VW 2020-02-14 21:26:14 [facility] 2020-02-14 12:58:00 Person, Omaira [facility] BASIC METABOLIC PANEL (NA, K, CL, CO2, GLUCOSE, BUN, CREATININE, CA) 2020-02-14 08:59:00 Sathya Cardoso [facility] CBC WITH DIFFERENTIAL 2020-02-14 08:59:00 Arely Cardoso [facility] XR CHEST 1 VW 2020-02-14 08:01:53 Jose [facility] CREATININE, URINE RANDOM 2020-02-14 04:54:00 German Hood [facility] POTASSIUM, URINE RANDOM 2020-02-14 04:54:00 Trip [facility] SODIUM, URINE RANDOM 2020-02-14 04:54:00 Jose [facility] CHLORIDE, URINE RANDOM 2020-02-14 04:54:00 Bonnie [facility] POCT GLUCOSE (AUTOMATED) 2020-02-14 01:53:00 Person, Omaira [facility] BASIC METABOLIC PANEL (NA, K, CL, CO2, GLUCOSE, BUN, CREATININE, CA) 2020-02-14 00:32:00 Jose [facility] POCT GLUCOSE (AUTOMATED) 2020-02-13 22:31:00 Person, Omaira [facility] POCT GLUCOSE (AUTOMATED) 2020-02-13 17:48:00 [facility] BASIC MET[facility]OLIC PANEL (NA, K, CL, CO2, GLUCOSE, BUN, CREATININE, CA) 2020-02-13 15:29:00 Sathya Cardoso [facility] CBC WITH DIFFERENTIAL 2020-02-13 15:29:00 Arely Cardoso [facility] POCT GLUCOSE (AUTOMATED) 2020-02-13 14:46:00 Person, Omaira [facility] XR CHEST 1 VW 2020-02-13 08:43:00 Jose [facility] POCT GLUCOSE (AUTOMATED) 2020-02-13 02:39:00 Person, Omaira [facility] POCT GLUCOSE (AUTOMATED) 2020-02-12 18:52:00 Person, Omaira [facility] POCT GLUCOSE (AUTOMATED) 2020-02-12 13:35:00 [facility] PHOS[facility]US 2020-02-12 09:55:00 Sathya Cardoso [facility] BASIC METABOLIC PANEL (NA, K, CL, CO2, GLUCOSE, BUN, CREATININE, CA) 2020-02-12 09:55:00 Sathya Cardoso [facility] CBC WITH DIFFERENTIAL 2020-02-12 09:55:00 Arely Cardoso [facility] XR CHEST 1 VW 2020-02-12 08:51:55 Luís Tatum [facility] POCT GLUCOSE (AUTOMATED) 2020-02-12 03:54:00 PersonOmaira [facility] POCT GLUCOSE (AUTOMATED) 2020-02-12 02:32:00 Person, Omaira [facility] CRITICAL CARE 2020-02-11 21:34:22 Saul [facility] XR CHEST 1 VW 2020-02-11 20:55:40 Sathya Cardoso [facility] XR CHEST 1 VW 2020-02-11 18:24[facility] 2020-02-11 [facility] PELVIS W CONTRAST 2020-02-11 17:40[facility] [facility] [address] [facility] WO CONTRAST 2020-02-11 17:39:21 [facility] CT TRAUMA CERVICAL SPINE WO CONTRAST 2020-02-11 17:39[facility] THORACIC SPINE WO CONTRAST 2020-02-11 17:39:21 [facility] CT TRAUMA LUMBAR SPINE WO CONTRAST 2020-02-11 17:39:21 Saul [facility] XR CHEST 1 VW 2020-02-11 17:14:51 Saul Cheryl [facility] COVID-19 (ID NOW RAPID TESTING) 2020-02-11 17:08:00 Saul [facility] LIPASE 2020-02-11 17:01:00 Cheryl Hughes [facility] TROPONIN I 2020-02-11 17:01:00 Cheryl Hughes [facility] HEPATIC FUNCTION PANEL (31977) (ALB,T.PRO,BILI T,BU/BC,ALT,AST,ALK PHOS) 2020-02-11 17:01:00 Saul [facility] BASIC METABOLIC PANEL (NA, K, CL, CO2, GLUCOSE, BUN, CREATININE, CA) 2020-02-11 17:01:00 Cheryl Hughes [facility] CBC WITH DIFFERENTIAL 2020-02-11 17:01:00 Joni Hughes [facility] PROTHROMBIN TIME / INR 2020-02-11 17:01:00 Boyd Hughes [facility] ACTIVATED PARTIAL THRMPLAS SANJUANITA 2020-02-11 17:01:00 Cheryl Hughes [facility] EKG-12 LEAD 2020-02-11 16:57:27 Cheryl Hughes [facility] Encounters Start Date/Time End Date/Time Encounter Type Admission Type Attending Clinicians Care Facility Care Department Encounter ID Source 2023-04-08 10:53:00 Inpatient HCACL LA[facility]AN[id number] 2023-04-08 16:50:00 2023-04-19 16:02:00 Inpatient SHAGGY ConklinGómez Rojelio [facility] MEDI.01 [id number] [facility] 2023-03-19 14:09:00 2023-03-19 14:09:00 Outpatient Samuel Harp [facility] RADI [id number] [facility] 2023-03-03 18:32:00 2023-03-13 16:01:00 Inpatient Samia Beltran [facility] INTE [id number] [facility] 2021-06-07 08:30:00 2021-06-07 08:30:00 Outpatient AYSE RODRIGUEZ [facility] [id number] [facility] 2021-06-04 09:00:00 2021-06-04 09:00:00 Outpatient AYSE RODRIGUEZ [facility] [id number] [facility] 2021-03-16 00:00:00 2021-03-16 00:00:00 Telephone Ayse Gonzales [facility] [id number] [facility] 2021-03-16 00:00:00 2021-03-16 00:00:00 [facility] [id number] [facility] 2021-03-07 09:13:33 2021-03-07 09:28:33 Blood Bank Calendar Control Clerk Visit [facility] IAY [facility] [id number] [facility] 2021-03-07 08:27:54 2021-03-07 09:14:25 Office Visit [facility] IAY [facility] [id number] [facility] 2021-03-07 09:00:00 2021-03-07 09:00:00 Outpatient R [facility] [id number] [facility] 2021-03-02 08:00:00 2021-03-02 08:00:00 Outpatient R AYSE GONZALES [facility] [id number] [facility] 2021-02-28 00:00:00 2021-02-28 00:00:00 Telephone [facility] IALTY [facility] [id number] [facility] 2020-12-25 00:00:00 2020-12-25 00:00:00 [facility] [id number] [facility] 2020-12-20 00:00:00 2020-12-20 00:00:00 Patient Secure Msg [facility] 1.2.840.114 350.1.13.10 4.2.7.2.[id number] [facility] 2020-12-19 00:00:00 2020-12-19 00:00:00 [facility] 1.2.840.114 350.1.13.10 4.2.7.2.[id number] [facility] 2020-12-14 07:53:25 2020-12-14 23:59:00 Hospital Encounter Ryan Christianson [facility] 1.2.840.114 350.1.13.10 4.2.7.2.[id number] [facility] 2020-12-14 07:53:14 2020-12-14 23:59:00 Hospital Encounter Ryan Christianson [facility] 1.2.840.114 350.1.13.10 4.2.7.2.[id number] [facility] 2020-12-14 07:53:04 2020-12-14 23:59:00 Hospital Encounter Ryan Christianson [facility] 1.2.840.114 350.1.13.10 4.2.7.2.[id number] [facility] 2020-12-14 07:52:23 2020-12-14 07:52:23 Hospital Encounter Ryan Christianson [facility] 1.2.840.114 350.1.13.10 4.2.7.2.[id number] [facility] 2020-12-14 00:00:00 2020-12-14 00:00:00 Outpatient RYAN CHRISTIANSON [facility] [id number] [facility] 2020-12-05 13:35:35 2020-12-05 14:36:37 Office Visit Christian [facility] 1.114 350.1.13.10 4.2.7.2.[id number] [facility] 2020-12-05 14:00:00 2020-12-05 14:00:00 Outpatient R [facility]RISTIAN [facility] [id number] [facility] 2020-12-01 08:24:35 2020-12-01 08:39:35 Blood Bank Calendar Control Clerk Visit Pob, Adc Lab Main Christian [facility] 1.84.114 350.1.13.10 4.2.7.2.[id number] [facility] 2020-12-01 08:30:00 2020-12-01 08:30:00 Outpatient R CHRISTIAN AYSE [facility] [id number] [facility] 2020-11-28 00:00:00 2020-11-28 00:00:00 Telephone Christian [facility] 1..114 350.1.13.10 4.2.7.2.[id number] [facility] 2020-11-13 16:00:00 2020-11-13 16:00:00 Outpatient R RYAN CHRISTIANSON [facility] [id number] [facility] 2020-11-06 00:00:00 2020-11-06 00:00:00 Patient Outreach Neal Mars [facility] 1.84.114 350.1.13.10 4.2.7.2.[id number] [facility] 2020-10-06:53:30 2020-10-06 12:21:03 Office Visit Ryan Christianson [facility] 1.114 350.1.13.10 4.2.7.2.[id number] [facility] 2020-10-06 11:00:00 2020-10-06 11:00:00 Outpatient R RYAN CHRISTIANSON [facility] [id number] [facility] 2020-09-17 00:00:00 2020-09-17 00:00:00 Refill Doctor Unassigned, [place] [facility] 1. 350.1.13.10 4.2.7.2.[id number] [facility] 2020-09-05 11:00:00 2020-09-05 11:00:00 Outpatient R AYSE GONZALES [facility] [id number] [facility] 2020-09-05 07:24:28 2020-09-05 07:54:28 Telemedici ne Visit Ayse Gonzales [facility] 1.114 350.1.13.10 4.2.7.2.[id number] [facility] 2020-09-05 00:00:00 2020-09-05 00:00:00 Patient Secure Msg Doctor Unassigned, [place] [facility] 1.114 350.1.13.10 4.2.7.2.[id number] [facility] 2020-08-30 09:16:09 2020-08-30 09:31:09 Blood Bank Calendar Control Clerk Visit Pob, Adc Lab Main Christian Ayse [facility] 1.114 350.1.13.10 4.2.7.2.[id number] [facility] 2020-08-30 09:15:00 2020-08-30 09:15:00 Outpatient R CHRISTIAN AYSE [facility] [id number] [facility] 2020-08-29 00:00:00 2020-08-29 00:00:00 Telephone Christian [facility] 1.114 350.1.13.10 4.2.7.2.[id number] [facility] 2020-08-14 00:00:00 2020-08-14 00:00:00 [facility] 1.114 350.1.13.10 4.2.7.2.[id number] [facility] 2020-04-14 00:00:00 2020-04-14 00:00:00 Telephone Christian [facility] 1.114 350.1.13.10 4.2.7.2.[id number] [facility] 2020-03-23 13:00:00 2020-03-23 13:00:00 [id number] [facility] 2020-03-23 07:48:19 2020-03-23 08:48:19 Telemedici ne Visit Ayse [facility] 1.114 350.1.13.10 4.2.7.2.[id number] [facility] 2020-03-21 13:00:00 2020-03-21 13:00:00 Outpatient R AYSE GONZALES [facility] [id number] [facility] 2020-03-20 08:13:42 2020-03-20 08:28:42 Blood Bank Calendar Control Clerk Visit Pob, Adc Lab Main Christian Ayse [facility] 1.2.840.114 350.1.13.10 4.2.7.2.[id number] [facility] 2020-03-20 07:30:00 2020-03-20 07:30:00 Outpatient R AYSE GONZALES [facility] [id number] [facility] 2020-03-16 00:00:00 2020-03-16 00:00:00 Telephone Christian [facility] 1.0.114 350.1.13.10 4.2.7.2.[id number] [facility] 2020-03-14 00:00:00 2020-03-14 00:00:00 [facility] 1.0.114 350.1.13.10 4.2.7.2.[id number] [facility] 2020-02-29 15:10:36 2020-02-29 15:43:10 Office Visit Perri Call [facility] 1.0.114 350.1.13.10 4.2.7.2.[id number] [facility] 2020-02-29 15:15:00 2020-02-29 15:15:00 Outpatient R PERRI CALL [facility] [id number] [facility] 2020-02-29 00:00:00 2020-02-29 00:00:00 Orders Only Doctor Unassigned, [place] [facility] 1.0.114 350.1.13.10 4.2.7.2.[id number] [facility] 2020-02-18 00:00:00 2020-02-18 00:00:00 Transition of Care [address] 1.0.114 350.1.13.10 4.2.7.2.[id number] [facility] 2020-02-11 15:17:21 2020-02-17 11:50:00 Hospital Encounter Person, Reddy Cueto [facility] 1.2.840.114 350.1.13.10 4.2.7.2.[id number] [facility] 2020-02-11 11:54:46 2020-02-11 14:08:00 Emergency X [facility] [id number] [facility] 2020-02-11 11:54:46 2020-02-11 14:08:00 Emergency Cheryl Hughes [facility] 1..840.114 350.1.13.10 4.2.7.2.[id number] [facility] 2020-02-11 11:54:46 2020-02-11 11:54:46 Emergency X CHERYL HUGHES [facility] [id number] [facility] Results Test Description Test Time Test Comments Results Result Co mments Source FLUORESCENCE INSITU [id number] 09:49:00* Test Item Value Reference Range Interpretation Comme nts FLUORESCENCE INSITU HYBRID (test code = FISH) FISH Analysis - MDS Extended Results: Normal Interpretation: +19 Not Detected Chromosome 8 Not Detected Chromosome 20 Not Detected 5q-/-5/+5 tricolor Not Detected 7q-/-7 tri Not Detected p53 (17p13.1)/ NF1 (17q11) Not Detected ETV6 (12p13) Not MkmmeoosFHJ9F (MLL) (11q23) Not Detected RPN1/MECOM (3q) Not Detected There is no evidence of abnormalities. NOTE: The presence of other abnormalities, not detectable bythis FISH probe set, cannot be ruled out. RECOMMENDATION: These results should be interpreted inconjunction with clinical and other laboratory findings. Electronic Luna Beyer M.D., Hematopathologist See scanned copy for full report. CHROMOSOME CAROLINE BONE [id number] 09:49:00* Test Item Value Reference Range Interpretation [...] or present in low levels. Analysis Code: DC7C30E7D, QC (SF7X72Y2M) Test Detail:Metaphases Counted: 13Metaphases Analyzed: 13Metaphases Karyotyped: 4Culture Type: 24EB, 48EBBanding Technique: GTGBanding Resolution: 350 Electronic SignatureChpresbyterian medical center-rio ranchostephan Cheema M.D., Pathologist - [facility]. LEUK/LYMPHOMA [id number] 09:49:00* Test Item Value Reference Range Interpretation Comme nts LEUK/LYMPHOMA PANEL (test code = LEULYM) Flow Cytometry A nalysis Specimen Type: Bone MarrowBody Site: Left Iliac Crest Diagnosis:1) FINDINGS SUGGESTIVE OF IMMATURE MONOCYTES2) PLASMA CELL STUDIES ORDERED ADDENDUM ([id number]):- NO EVIDENCE FOR PLASMA CELL NEOPLASM DETECTED Comments:Phenotype: ?dim CD7 (subset), dim CD11c, CD13, CD33, CD34,CD38, CD64, CD117, HLA-DR; negative for CD10 and CD19 Monocytes demonstrate heterogeneous expression of PS81wxafiqlhok of monocyte immaturity. 0.9% myeloid blasts aredetected with equivocal expression of CD7 noted in a subset of blasts. These findings may sometimes be associated with a myeloid neoplasm. Eosinophils are 6%. Cytogenetic karyotyping, FISH and next gen sequencing studies are already in progress as requested. No evidence for acute leukemia, increased CD34/MJ113wdcishul blasts, lymphoproliferative disorder is detected. Clinical and morphologic correlation is recommended for fullinterpretation. ADDENDUM([id number]): Cytoplasmic light chain and CD138 studiesdemonstrate polytypic [...] CD45, CD56, CD64, CD117,CD138, cKappa, cLambda, HLA-DR, [place], Lambda (27 Markers ) Immunophenotyping:Analysis Code: 3-3903 ADDENDED: Diagnosis addended for plasma cell studies only Electronic Elvin Pryor M.D., Pathologist BONE [id number] 13:47:00* Test Item Value Reference Range Interpretation Comments BONE MARROW (test code = BR) RUN DATE: 04/30/23 [place] [employer] [facility] PAGE 1 RUN TIME: 1419 Specimen Inquiry RUN USER: INTERFACE PATIENT: TEVIN NYE LOC: ANAMIKA U #: [id number] AGE/SX: 73/M ROOM: [facility] RE04/08/23REG DR: Rojelio Magaña MD : 51 BED: 1 DIS: 04/19/23 STATUS: DIS IN TLOC: SPEC #: [id number] RECD: 04/17/23 STATUS: GILBERT REQ #: [id number] BHAVANI: 04/17/23- [facility] DR: Pablo Kumar MD ENTERED: 04/17/23 SP TYPE: BM OTHR DR: Self Referred Anibal Haynes MD, Majd Byrne, John G MD Chaugle, Abdul Hannan MD Gibberman,Davi Nj,Bryson Gamboa,Reyna Chahal MD DPEzra Arvizu,Dakota Butler,David Mcclelland,Atif Paz,Glendy Ceron MDORDERED: 42708, 55669/2, SPEC STAIN GR2/4, 45980, IHC ADD 78158/6, 80756, 77760, ANATOMIC SPEC COPIES TO: Self Referred Anibal Haynes MD [address] [place] [address] Sharmila Alan [address] [facility] [place] [address] Samuel Mcguire MD [address] [place] [address] [place] [address] Luci Beyer MD [address] [place] [address]. [address] [place] [address] Davi Hilton MD [address] [place] [address] CONTINUED ON NEXT PAGE RUN DATE: 04/30/23 [place] - LAB PAGE 2 RUN TIME: 1419 Specimen Inquiry RUN USER: INTERFACE SPEC #: [id number] PATIENT: TEVIN NYE #[id number] (Continued) COPIES TO: (Continued) Bryson Nj [address] [facility] [address] [place], [place] [id number] Elvie Gamboa MD [address] [place] [address] Reyna Washington DPM [address] [place] [address] Pablo Kumar MD [address] [place] [address] Dakota Arvizu MD [address] [place] [address] David Butler MD [address] [facility] [place] [address] Atif Mcclelland MD [facility] [address] [place] [address] Glendy Paz MD [address] [place] [address] PROCEDURES: 84610 (04/17/23) 17222 (04/17/23) SPEC STAIN GR2 (04/17/23) 91765 (04/21/23) IHC ADD 80396 (04/21/23) 42673 (04/21/23) 12068 (04/21/23) CONTINUED ON NEXT PAGE RUN DATE: 04/30/23 [place] - LAB PAGE 3 RUN TIME: 1419 Specimen Inquiry RUN USER: INTERFACE SPEC #: [id number] PATIENT: TEVIN NYE #[id number] (Continued) TISSUES: A. BONE MARROW BIOPSY/ BONE MARROW PARTICLE CLOT - LEFT ILIAC CREST ADDENDUM FINDINGS Addendum #3 Entered: 04/30/23 This addenum is issued to report the results of ancillary studies performed and interpretedat [facility] (see below). 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 DNMT3A mutations are found in 31% of acute myeloidleukemia (PMID: 26876345), 13% of myelodysplastic syndrome (PMID: 01252636), 13% ofrefractory anemia with ring sideroblasts associated with marked thrombocytosis (PMID:92178740), 8% of blastic plasmacytoid dendritic cell neoplasm (PMID: 19345283), 6% ofprimary myelofibrosis (PMID: 39775343), 6% of essential thrombocythemia, 2% of polycythemiavera (PMID: 34686965), and 4% of chronic myelomonocytic leukemia (PMID: 57472173). GFYJ7Kzauyygerk are associated with an unfavorable prognosis in myelodysplastic syndrome ynsnVU8Y7 is not mutated, and also unfavorable outcomes and shorter survival afterhematopoietic stem cell transplantation (PMID: 04322055). DNMT3A mutations are associatedwith an unfavorable prognosis in acute myeloid leukemia with FLT3-ITD mutation and normalkaryotype or intermediate-risk cytogenetic abnormalities, but improved outcome in patientstreated with high-dose induction chemotherapy compared with standard-dose inductionchemotherapy (PMID: 03045765). Somatic mutations in leukemia associated genes (particularlyASXL1, [...] allele frequency of 10% or more (PMID: 56068620). Somaticmutations in leukemia-associated genes are also commonly found in patients with unexplainedcytopenias who do not meet diagnostic criteria for myelodysplastic syndrome, a conditionknown as clonal cytopenias of undetermined significance (CCUS) (PMID: 74225833 and PMID:57870553). PLEASE SEE ORIGINAL REFERENCE LAB REPORT FOR DETAILS Addendum Signed SIGNATURE ON FILE Shun Vasquez Lindsay 04/30/23 1418 Addendum #2 Entered: 04/25/231238 This addenum is issued to report the results of ancillary studies performed and interpretedat [facility] (see below). CONTINUED ON NEXT PAGE RUN DATE: 04/30/23 [place] - LAB PAGE 4 RUN TIME: 1419 Specimen Inquiry RUN USER: INTERFACE SPEC #: [id number] PATIENT: TEVIN NYE #[id number] (Continued) ADDENDUM FINDINGS (Continued) Oncology chromosome analysis: [...] results of ancillary studies performed and interpretedat [facility] (see below). FISH MDS extended: Normal PLEASE [...] neutrophils present; thrombocytopenia. -Flow cytometry (performed at [employer]): Findings suggestive of immature monocytes. CONTINUED ON NEXT PAGE RUN DATE: 04/30/23 [facility] PAGE 5 RUN TIME: 1419 Specimen Inquiry RUN USER: INTERFACE SPEC #: [id number] PATIENT: TEVIN NYE #[id number] (Continued) FINAL DIAGNOSIS (Continued) Comment: The above [...] stained clot section. Technical component performed at [address], [place] [address] Unless gross only, the diagnosis is based [...] CONTINUED ON NEXT PAGE RUN DATE: 04/30/23 [place] - LAB PAGE 6 RUN TIME: 1419 Specimen Inquiry RUN USER: INTERFACE SPEC #: [id number] PATIENT: TEVIN NYE #[id number] (Continued) MICROSCOPIC DESCRIPTION (Continued) all cells. The [...] Signed SIGNATURE ON FILE Shun Vasquez 04/21/23 1487 END OF REPORT GLUCOSE [id number] 11:24:00* Test Item Value Reference Range Interpretation Comme [facility] GLUCOSE BEDSIDE (test code = GLUBED) 194 MG/DL 70-110 H Performed by wendy ferguson at [facility] CBC W/AUTO [id number] 08:08:00* Test Item Value Reference Range Interpretation Comme [facility] WHITE BLOOD CELL (test code = WBC) [...] (test c ode = MDIFF) NO GLUCOSE [id number] 07:41:00* Test Item Value Reference Range Interpretation Comme nts GLUCOSE BEDSIDE (test code = GLUBED) 186 MG/DL 70-110 H Performed by cer tified laser machine operator at [facility] BASIC METABOLIC [id number] 07:37:00* Test Item Value Reference Range Interpretation [...] = CA) 8.2 mg/dL 8.0-10.5 N GLUCOSE [id number] 20:52:00* Test Item Value Reference Range Interpretation Comme nts GLUCOSE BEDSIDE (test code = GLUBED) 203 MG/DL 70-110 H Performed by cer tified laser machine operator at [facility] GLUCOSE [id number] 16:19:00* Test Item Value Reference Range Interpretation Comme nts GLUCOSE BEDSIDE (test code = GLUBED) 195 MG/DL 70-110 H Performed by cer tified laser machine operator at [facility] GLUCOSE [id number] 11:32:00* Test Item Value Reference Range Interpretation Comme nts GLUCOSE BEDSIDE (test code = GLUBED) 247 MG/DL 70-110 H Performed by cer yun laser machine operator at [facility] BASIC METABOLIC [id number] 09:06:00* Test Item Value Reference Range Interpretation [...] CA) 8.3 mg/dL 8.0-10.5 N CBC W/AUTO [id number] 08:26:00* Test Item Value Reference Range Interpretation [...] (test c ode = MDIFF) NO GLUCOSE [id number] 08:19:00* Test Item Value Reference Range Interpretation Comme nts GLUCOSE BEDSIDE (test code = GLUBED) 196 MG/DL 70-110 H Performed by cer tified laser machine operator at [facility] GLUCOSE [id number] 19:34:00* Test Item Value Reference Range Interpretation Comme nts GLUCOSE BEDSIDE (test code = GLUBED) 203 MG/DL 70-110 H Performed by wendy malcolm laser machine operator at [facility] PROTEIN ELECTROPHORESIS [id number] 16:11:00* Test Item Value Reference Range Interpretation Comme nts TOTAL PROTEIN (test code = PROTE) 5.5 g/dL 6.0-8.5 L ALBUMIN (test code = ALBE) 2.6 g/dL 2.9-4.4 A SQJPO-5-CYJFKVEG (test code = A1G) 0.3 g/dL 0.0-0.4 XSSZE-1-XZKAXWVY (test code = A2G) 0.7 g/dL 0.4-1.0 [...] ofmonoclonal protein is not apparent.Performed At: [address] [id number] Veloz MD Ph:[phone] ed At: [address] [id number] CN MD Ph:[phone] SPE pattern reflects hypoalbuminemia. Evidence ofmonoclonal protein is not apparent.Performed At: [address] [id number] Veloz MD Ph:[phone] ed At: [address] [id number] CN MD Ph:[phone] [Automated message] The system which generated this result transmitted reference range: (). The reference range was not used to interpret this result as normal/abnormal. GLUCOSE [id number] 12:12:00* Test Item Value Reference Range Interpretation Comme nts GLUCOSE BEDSIDE (test code = GLUBED) 177 MG/DL 70-110 H Performed by cer yun laser machine operator at [facility] BASIC METABOLIC [id number] 08:24:00* Test Item Value Reference Range Interpretation [...] CA) 8.0 mg/dL 8.0-10.5 N CBC W/AUTO [id number] 08:09:00* Test Item Value Reference Range Interpretation [...] (test c ode = MDIFF) NO GLUCOSE [id number] 07:24:00* Test Item Value Reference Range Interpretation Comme nts GLUCOSE BEDSIDE (test code = GLUBED) 180 MG/DL 70-110 H Performed by wendy malcolm laser machine operator at [facility] - [facility] (Biopsy/Asp)2023-04-17 00:00:00 [facility] 1950 Sex: M Name: TEVIN NYE [facility] : 1950 Age/S: 73 / M [address] [place] [address] Blvd Unit #: [id number] Loc: [place] [address] Phys: Dakota Arvizu MD Acct: [id number] Dis Date: Status: ADM IN PHONE #: [phone] Exam Date: 04/17/2023 1035 FAX #: [phone] Reason: Anemia, leucopenia, evaluate for MDS EXAMS: CPT CODE: [id number] [facility] (Biopsy/Asp) 25580 PROCEDURE INFORMATION:Exam: IR Diagnostic Bone Marrow Biopsies And Aspirations [...] contrast: CT contrast route: Intra-venous; COMPARISON: USRETRPERITONEAL COM 11/13/2022 06:55 RADIATION DOSE METRICS: Reference [...] level of consciousness and physiological status throughout. Moderatesedation record is permanently stored in the hospital [...] 1 Signed Report (CONTINUED) Name: TEVIN NYE [facility] : 1950 Age/S: 73 / M [address] [place] [address] Unit #: [id number] Loc: [place] [address] Phys: Dakota Arvizu MD Acct: [id number] Dis Date: Status: ADM IN PHONE #: [phone] Exam Date: 06/2023 1035 FAX #: [phone] Reason: Anemia, leucopenia, evaluate for MDS EXAMS: CPT CODE: [id number] CT GUID NDL PLCMT (Biopsy/Asp) 37185 (Continued) was advanced into the posterior left iliac bone. CT imaging confirmed proper positioning of the needle with the tip in the medullary bone. Approximately 1 cc of bone marrow was initially aspirated and given to pathology. The presence of spiculeswas confirmed. Ten cc of bone marrow was aspirated and given to pathology. Two cm long core biopsy sample of bone marrow was obtained utilizing the guide needle. The core biopsy sample was placed in formalin container and appeared grossly adequate. Pressure was applied at the puncture site with adeq uate hemostasis. Procedural imaging: Post biopsy imaging demonstrates no hematoma. Complications: No immediate complications. IMPRESSION: CT-guided bone marrow aspiration and core biopsy. at 1128 Reported and signed by: Ashley Croft M.D. CC: Samuel Mcguire MD; Elvie Gamboa MD; Pablo Kumar MD; Dakota Arvizu Technologist:Magalie Michaels RT(R)(CT) CTDI: DLP: Trnscb Date/Time: 04/17/2023 (1127) [email or web address] Orig Print D/T: S: 04/17/2023 (1127) PAGE 2 Signed ReportGLUCOSE [id number] 21:24:00* Test Item Value Reference Range Interpretation Comme nts GLUCOSE BEDSIDE (test code = GLUBED) 186 MG/DL 70-110 H Performed by cer tified laser machine operator at [facility] GLUCOSE [id number] 17:00:00* Test Item Value Reference Range Interpretation Comme nts GLUCOSE BEDSIDE (test code = GLUBED) 180 MG/DL 70-110 H Performed by cer tified laser machine operator at [facility] [id number] 16:11:00* Test Item Value Reference Range Interpretation Comme nts HAPTOGLOBIN (test code = HAPT) 125 mg/dL 34-355 Performed At: [facility] [id number] [facility] [address] [place], [place] [id number] CN MD Ph:[phone] GLUCOSE [id number] 11:14:00* Test Item Value Reference Range Interpretation Comme nts GLUCOSE BEDSIDE (test code = GLUBED) 218 MG/DL 70-110 H Performed by cer tified laser machine operator at [facility] CBC W/AUTO [id number] 08:32:00* Test Item Value Reference Range Interpretation [...] c ode = MDIFF) NO BASIC METABOLIC [id number] 08:29:00* Test Item Value Reference Range Interpretation [...] = CA) 8.0 mg/dL 8.0-10.5 N GLUCOSE [id number] 07:54:00* Test Item Value Reference Range Interpretation Comme nts GLUCOSE BEDSIDE (test code = GLUBED) 193 MG/DL 70-110 H Performed by cer tified laser machine operator at [facility] GLUCOSE [id number] 23:55:00* Test Item Value Reference Range Interpretation Comme nts GLUCOSE BEDSIDE (test code = GLUBED) 173 MG/DL 70-110 H Performed by cer tified laser machine operator at [facility] GLUCOSE [id number] 15:45:00* Test Item Value Reference Range Interpretation Comme nts GLUCOSE BEDSIDE (test code = GLUBED) 184 MG/DL 70-110 H Performed by cer tified laser machine operator at [facility] GLUCOSE [id number] 10:59:00* Test Item Value Reference Range Interpretation Comme nts GLUCOSE BEDSIDE (test code = GLUBED) 202 MG/DL 70-110 H Performed by cer tified laser machine operator at [facility] VITAMIN [id number] 08:33:00* Test Item Value Reference Range Interpretation Comme nts VITAMIN B12 (test code = VITB12) 589 pg/mL 193-986 N FOLIC [id number] 08:33:00* Test Item Value Reference Range Interpretation Comme nts FOLIC ACID (test code = FOL) 14.0 ng/mL 3.1-17.5 N BASIC METABOLIC [id number] 08:06:00* Test Item Value Reference Range Interpretation [...] code = LDH) 191 IUnits/L 87-241 N [id number] 08:06:00* Test Item Value Reference Range Interpretation Comme nts MAGNESIUM (test code = MAG) 1.94 mg/dL 1.80-2.40 RETIC COUNT (AUTOMATED)2023-04-15 07:32:00* Test Item Value Reference Range Interpretation Comme nts RETIC COUNT (AUTOMATED) (jorge luis t code = RETICA) 5.9 % 0.3-2.3 H CBC W/AUTO [id number] 07:31:00* Test Item Value Reference Range Interpretation [...] (test c ode = MDIFF) NO GLUCOSE [id number] 07:05:00* Test Item Value Reference Range Interpretation Comme [facility] GLUCOSE BEDSIDE (test code = GLUBED) 207 MG/DL 70-110 H Performed by cer [employer] laser machine operator at [facility] GLUCOSE [id number] 20:41:00* Test Item Value Reference Range Interpretation Comme nts GLUCOSE BEDSIDE (test code = GLUBED) 204 MG/DL 70-110 H Performed by [employer] laser machine operator at [facility] GLUCOSE [id number] 16:37:00* Test Item Value Reference Range Interpretation Comme nts GLUCOSE BEDSIDE (test code = GLUBED) 215 MG/DL 70-110 H Performed by [employer] laser machine operator at [facility] LOW MOLECULAR WT [id number] 14:03:00* Test Item Value Reference Range Interpretation Comme [facility] LOW MOLECULAR WT HEPARIN (test code = LMWHEP) 0.96 IU/mL 0.60-1.00 N LMWH Therapeutic Ranges (target anti-Xa levels measured 3-5 hours after dose):Enoxaparin (Lovenox) - Twice daily dosin.6-1.0 IU/mL Once daily dosing: >1.0 IU/mLTinzaparin (lnnohep) - Once daily dosin.85 IU/mLDalteparin (FragMin) - Once daily dosin.05 IU/mL GLUCOSE [id number] 11:32:00* Test Item Value Reference Range Interpretation Comme nts GLUCOSE BEDSIDE (test code = GLUBED) 209 MG/DL 70-110 H Performed by cer yun laser machine operator at [facility] CBC W/AUTO [id number] 08:46:00* Test Item Value Reference Range Interpretation [...] (test c ode = MDIFF) NO GLUCOSE [id number] 07:31:00* Test Item Value Reference Range Interpretation Comme nts GLUCOSE BEDSIDE (test code = GLUBED) 200 MG/DL 70-110 H Performed by cer tified laser machine operator at [facility] COMPREHENSIVE METABOLIC [id number] 06:23:00* Test Item Value Reference Range Interpretation [...] code = ALKP) 80 IUnit/L 20-125 N [id number] 06:23:00* Test Item Value Reference Range Interpretation Comme nts MAGNESIUM (test code = MAG) 1.39 mg/dL 1.80-2.40 L CALCIUM [id number] 06:23:00* Test Item Value Reference Range Interpretation Comme nts CALCIUM IONIZED (test code = BIBIANA) 1.16 MMOL/L 1.09-1.30 N - XR CHEST 1 [id number] 00:00:00 [facility] : 1950 Sex: M FAX: Samuel Mcguire MD [place]: St: [facility] FAX: Elvie Gamboa MD [phone] Name: TEVIN NYE [facility] : 1950 Age/S: 73/M [address] [place] [address] Blvd Unit #: [id number] Loc: G.5517 [place] [address] Phys:Elvie Gamboa MD Acct: [id number] Dis Date: Status: ADM IN PHONE #: [phone] Exam Date: 04/13/2023 1720 FAX #: [phone] Reason: SHORTNESS OF BREADTH EXAMS: CPT CODE: [id number] XR CHEST 1 V 21530 PROCEDURE INFORMATION: Exam: XR Chest Exam date and time: 04/13/2023 4:56 PM Age: 73 years old Clinical indication: Shortness of breath; Additional info: Shortness of breadth TECHNIQUE: Imaging protocol: Radiologic exam of the chest. Views: 1 view. COMPARISON: 1. DX XR CHEST 2 V 04/08/2023 2:38 PM 2. CTA CHEST, CTA CHEST 03/03/2023 11:42 PM FINDINGS: Lungs: Nodular opacity in the right lowerlung is again seen. Otherwise, no focal airspace disease or evidence of pulmonary edema. Pleural spaces: No pleural effusion. No pneumothorax. Heart/Mediastinum: Unchanged cardiomediastinal silhouette. Bones/joints: Median sternotomy changes. IMPRESSION: No acute cardiopulmonary abnormality. at 0616 Reported and signed by: Margarito Borges M.D. CC: Samuel Mcguire MD; Elvie Gamboa MD Technologist: Keila Botello, RT(R); Rosetta Gil RT(R) Trnscrd Date/Time/By: 04/14/2023 (615) : By: BuckAM01 Orig Print D/T: S: 04/14/2023 (16)PAGE 1 Signed ReportGLUCOSE [id number] 21:51:00* Test Item Value Reference Range Interpretation Comme nts GLUCOSE BEDSIDE (test code = GLUBED) 223 MG/DL 70-110 H Performed by cer yun laser machine operator at [facility] GLUCOSE [id number] 16:31:00* Test Item Value Reference Range Interpretation Comme nts GLUCOSE BEDSIDE (test code = GLUBED) 135 MG/DL 70-110 H Performed by cer tified laser machine operator at [facility] GLUCOSE [id number] 12:11:00* Test Item Value Reference Range Interpretation Comme nts GLUCOSE BEDSIDE (test code = GLUBED) 211 MG/DL 70-110 H Performed by cer tified laser machine operator at [facility] GLUCOSE [id number] 08:31:00* Test Item Value Reference Range Interpretation Comme nts GLUCOSE BEDSIDE (test code = GLUBED) 170 MG/DL 70-110 H Performed by cer tified laser machine operator at [facility] BASIC METABOLIC [id number] 07:58:00* Test Item Value Reference Range Interpretation [...] 8.1 mg/dL 8.0-10.5 N LOW MOLECULAR WT [id number] 07:32:00* Test Item Value Reference Range Interpretation Comme nts LOW MOLECULAR WT HEPARIN (test code = LMWHEP) 0.56 IU/mL 0.60-1.00 L LMWH Therapeutic Ranges (target anti-Xa levels measured 3-5 hours after dose):Enoxaparin (Lovenox) - Twice daily dosin.6-1.0 IU/mL Once daily dosing: >1.0 IU/mLTinzaparin (lnnohep) - Once daily dosin.85 IU/mLDalteparin (FragMin) - Once daily dosin.05 IU/mL CBC W/AUTO [id number] 07:19:00* Test Item Value Reference Range Interpretation [...] (test c ode = MDIFF) NO GLUCOSE [id number] 16:46:00* Test Item Value Reference Range Interpretation Comme nts GLUCOSE BEDSIDE (test code = GLUBED) 172 MG/DL 70-110 H Performed by cer tified laser machine operator at [facility] GLUCOSE [id number] 11:02:00* Test Item Value Reference Range Interpretation Comme nts GLUCOSE BEDSIDE (test code = GLUBED) 139 MG/DL 70-110 H Performed by [employer] tified laser machine operator at [facility] COMPREHENSIVE METABOLIC [id number] 07:57:00* Test Item Value Reference Range Interpretation [...] ALKP) 102 IUnit/L 20-125 N CBC W/AUTO [id number] 07:54:00* Test Item Value Reference Range Interpretation [...] (test c ode = MDIFF) NO GLUCOSE [id number] 07:54:00* Test Item Value Reference Range Interpretation Comme nts GLUCOSE BEDSIDE (test code = GLUBED) 255 MG/DL 70-110 H Performed by cer tified laser machine operator at [facility] GLUCOSE [id number] 07:24:00* Test Item Value Reference Range Interpretation Comme nts GLUCOSE BEDSIDE (test code = GLUBED) 178 MG/DL 70-110 H Performed by cer tified laser machine operator at [facility] LOW MOLECULAR WT [id number] 23:57:00* Test Item Value Reference Range Interpretation Comme [facility] LOW MOLECULAR WT HEPARIN (test code = LMWHEP) 0.76 IU/mL 0.60-1.00 N LMWH Therapeutic Ranges (target anti-Xa levels measured 3-5 hours after dose):Enoxaparin (Lovenox) - Twice daily dosin.6-1.0 IU/mL Once daily dosing: >1.0 IU/mLTinzaparin (lnnohep) - Once daily dosin.85 IU/mLDalteparin (FragMin) - Once daily dosin.05 IU/mL COMMENTS: DRAW LEVEL 4 HOURS AFTER GIVING LOVENOX SHOTGLUCOSE [id number] 17:43:00* Test Item Value Reference Range Interpretation Comme [facility] GLUCOSE BEDSIDE (test code = GLUBED) 214 MG/DL 70-110 H Performed by cer tified laser machine operator at [facility] GLUCOSE [id number] 12:11:00* Test Item Value Reference Range Interpretation Comme [facility] GLUCOSE BEDSIDE (test code = GLUBED) 230 MG/DL 70-110 H Performed by [facility] tified laser machine operator at [facility] BASIC METABOLIC [id number] 08:42:00* Test Item Value Reference Range Interpretation Comme [facility] SODIUM (test code = NA) 140 mEq/L [...] CA) 7.9 mg/dL 8.0-10.5 L CBC W/AUTO [id number] 08:42:00* Test Item Value Reference Range Interpretation [...] (test c ode = MDIFF) NO GLUCOSE [id number] 08:32:00* Test Item Value Reference Range Interpretation Comme nts GLUCOSE BEDSIDE (test code = GLUBED) 199 MG/DL 70-110 H Performed by cer tified laser machine operator at [facility] UR SMEAR EOSINOPHIL [id number] 06:11:00* Test Item Value Reference Range Interpretation Comme nts UR SMEAR EOSINOPHIL COUNT (t est code = EOSCTU) NONE SEEN UR PROTEIN/CREATININE [id number] 06:11:00* Test Item Value Reference Range Interpretation Comme nts UR PROTEIN RANDOM (test code = PROTU) 40 mg/dL UR CREATININE RANDOM (test code = CREATU) 91.5 mg/dL The Reference Ra nge and Method Performance specificationshave not been established for this fluid. The test resultshould be correlated into the clinical context forinterpretation. PROTEIN/CREATININE RATIO (test code = P/CRATIO) 0.44 - RETROPERITONEAL [id number] 00:00:00 [facility] 1950 Sex: M Name: TEVIN NYE [facility] [place] : 1950 Age/S: 73 / M [address] [place] [address] Bl Unit #: [id number] Loc: [place] [address] Phys: Monserrat Bobo MD Acct: [id number] Dis Date: Status: ADM IN PHONE #: [phone] Exam Date: 04/10/2023 1127 FAX #: [phone] Reason: arf EXAMS: CPT CODE: [id number] US RETROPERITONEAL COM 55871 PROCEDURE INFORMATION: Exam: US Retroperitoneal; Complete; Kidneys [...] cortical thinning measuring 9.6 cm length. Trace riky nephric free fluid appears to be present. Aorta: Visualized portions of the abdominal aorta is normal in caliber with portions obscured by overlying gas including the bifurcation. Inferior vena cava: The IVC demonstrates color flow. Urinary bladder: Small amount of anechoic fluid is present in theurinary bladder. IMPRESSION: Trace left perinephric free fluid. Otherwise, normal renal ultrasound. at 0809 Reported and signedby: Ranjit Del Castillo M.D. CC: Samuel Mcguire MD; Elvie Gamboa MD; Monserrat Bobo MD Technologist: Jeremie Roman Trnscb Date/Time: 04/11/2023 (0809) Chang.SG9 Orig Print D/T: S: 04/11/2023 (0809) Probe: PAGE 1 Signed ReportGLUCOSE [id number] 22:02:00* Test Item Value Reference Range Interpretation Comme nts GLUCOSE BEDSIDE (test code = GLUBED) 198 MG/DL 70-110 H Performed by [facility] tified laser machine operator at [facility] TOTAL IRON BINDING [id number] 17:06:00* Test Item Value Reference Range Interpretation Comme nts SERUM IRON (test code = IRON) 47 mcg/dL 35-150 N TOTAL IRON BINDING CAPACITY (test code = TIBC) 204 mcg/dL 260-445 L UIBC (test code = UIBC) 157 mcg/dL IRON SATURATION (test code = FESAT) 23.0 % 14-34 N [id number] 17:06:00* Test Item Value Reference Range Interpretation Comme nts FERRITIN (test code = BRIAN) 255.2 ng/mL 23.9-336.2 N GLUCOSE [id number] 16:58:00* Test Item Value Reference Range Interpretation Comme nts GLUCOSE BEDSIDE (test code = GLUBED) 213 MG/DL 70-110 H Performed by cer tified laser machine operator at [facility] GLUCOSE [id number] 11:53:00* Test Item Value Reference Range Interpretation Comme nts GLUCOSE BEDSIDE (test code = GLUBED) 283 MG/DL 70-110 H Performed by [facility] laser machine operator at [facility] - XR FOOT 3 + V [id number] 11:15:00 [facility] : 1950 Sex: M FAX: Samuel Mcguire MD [place]: St: ADM FAX: Elvie Gamboa MD [phone] FAX: Reyna Bardales DPM [phone] Name: TEVIN NYE [facility] : 1950 Age/S: 73/M [address] [place] [address] Unit #: [id number]: G.5517 [place] [address] Phys: Reyna Washington DPM Acct: [id number] Dis Date: Status: ADM IN PHONE #: [phone] Exam Date: 04/09/2023 1501 FAX #: [phone] Reason: ULCER LEFT UPPER FOOT EXAMS: CPT CODE: [id number] XR FOOT 3 + V LT [address]381 EXAM: Left foot series, 3 views Dictation location:H10 INDICATION: Ulcer left upper foot COMPARISON: None. [...] Gamboa MD; Reyna Washington DPM Technologist: RT Aroldo(R) Trnscrd Date/Time/By: 04/10/2023 (1113) : By: [email or web address] Orig Print D/T: S: 04/10/2023 (5357) PAGE 1 Signed ReportBASIC METABOLIC [id number] 08:31:00* Test Item Value Reference Range Interpretation [...] CA) 8.6 mg/dL 8.0-10.5 N CBC W/AUTO [id number] 08:30:00* Test Item Value Reference Range Interpretation [...] (test c ode = MDIFF) NO GLUCOSE [id number] 07:33:00* Test Item Value Reference Range Interpretation Comme [facility] GLUCOSE BEDSIDE (test code = GLUBED) 180 MG/DL 70-110 H Performed by cer tified laser machine operator at [facility] GLUCOSE [id number] 19:15:00* Test Item Value Reference Range Interpretation Comme [facility] GLUCOSE BEDSIDE (test code = GLUBED) 281 MG/DL 70-110 H Performed by cer tified laser machine operator at [facility] GLUCOSE [id number] 13:10:00* Test Item Value Reference Range Interpretation Comme nts GLUCOSE BEDSIDE (test code = GLUBED) 162 MG/DL 70-110 H Performed by cer tified laser machine operator at [facility] [id number] 12:15:00* Test Item Value Reference Range Interpretation Comme nts MAGNESIUM (test code = MAG) 2.06 mg/dL 1.80-2.40 Comment: pls add to AM labsADD ON TEST? YesBASIC METABOLIC [id number] 08:26:00* Test Item Value Reference Range Interpretation [...] CA) 9.1 mg/dL 8.0-10.5 N CBC W/AUTO [id number] 08:17:00* Test Item Value Reference Range Interpretation [...] (test c ode = MDIFF) NO GLUCOSE [id number] 05:04:00* Test Item Value Reference Range Interpretation Comme nts GLUCOSE BEDSIDE (test code = GLUBED) 121 MG/DL 70-110 H Performed by wendy malcolm laser machine operator at [facility] - DUP VEIN [id number] 00:00:00 [facility] : 1950 Sex: M Name: TEVIN NYE [facility] : 1950 Age/S: 73 / M [address] [place] [address] Blvd Unit #: [id number] Loc: [place] [address] Phys: Daniela Mari AGACNP Acct: [id number] Dis Date: Status: ADM IN PHONE #: [phone] Exam Date: 04/09/2023 1659 FAX #: [phone] Reason: rule out DVT EXAMS: CPT CODE: [id number] [facility] VEIN SCOTTY 03967 PROCEDURE INFORMATION: Exam: US Duplex Lower ExtremityVeins, Bilateral Exam date and time: 04/09/2023 4:20 [...] MD; Daniela Mari Technologist: Claudia Woods RDMS(AB) TrnscbDate/Time: 04/09/2023 (1754) Chang.WH3 Orig Print D/T: S: 04/09/2023 (1755) Probe: PAGE 1 Signed Report- ENRRIQUE CEDILLO [id number] 00:00:00 [facility] ANELName: TEVIN NYE : 1950 Sex: M Name: TEVIN NYE [facility] [place] : 1950 Age/S: 73 / M [address] [place] [address] Unit #: [id number] Loc: [place] [address] Phys: Daniela Mari Acct: [id number] Dis Date: Status: ADM IN PHONE #: [phone] Exam Date: 04/09/2023 1659 FAX #: [phone] Reason: rule out PAD EXAMS: CPT CODE: [id number] DUP LE ART SCOTTY 75789 PROCEDURE INFORMATION: Exam: US Duplex Bilateral Lower Extremity Arteries Exam date and time: 04/09/2023 5:05 PM Age: 73 years old Clinical indication: Screening exam; Rule out pad TECHNIQUE: Imaging protocol: Real-time ultrasound scan of the arteries ofthe bilateral lower extremities with 2-D nj scale, color Doppler flow and spectral waveform analysis. Images documented and saved. COMPARISON: US DUP VEIN SCOTTY 04/09/2023 4:20 PM FINDINGS: Right common femoral artery: No occlusion or significant stenosis. Normal waveform. The peak systolic velocity is 94 cm/s Right superficial femoral artery: No [...] No occlusion or significant stenosis in the visualizedarteries. Normal waveforms. Dorsalis pedis artery is patent. Peak systolic velocity for the posterior tibial artery is 46 cm/s and is monophasic with slight systolic flow reversal, dorsalis pedis is52 cm/s and is monophasic with systolic flow reversal. The right ankle brachial index is 0.88 and the left ankle-brachial index could not be performed due to noncompressibility due to arterial sclerotic disease. IMPRESSION: PAGE 1 Signed Report (CONTINUED) Name: TEVIN NYE [facility] :1950 Age/S: 73 / M [address] [place] [address] Unit #: [id number] Loc: [place] [address] Phys: Daniela Mari Acct: [id number] Dis Date: Status: ADM IN PHONE #: [phone] Exam Date: 04/09/2023 1659 FAX #: [phone] Reason: rule out PAD EXAMS: CPT CODE: [id number] DUP LE ART SCOTTY 59919 (Continued) Suspicion of stenosis disc proximal to [...] signed by: Slava Tran M.D. CC: Samuel Mcguire MD; Elvie Gamboa MD; Daniela Mari Technologist: Beryl Hanson, (R)(CT); Claudia Woods RDMS(AB); ...Trnscb Date/Time: 04/09/2023 (1919) Chang.AB67 Orig Print D/T: S: 04/09/2023 (1919) Probe: PAGE 2 Signed Report- NM LUNG PERF [id number] 00:00:00 [facility] TEVIN NYE : 1950 Sex: M FAX: Samuel Mcguire MD [place]: [facility]: [facility] FAX: Elvie Gamboa MD [phone] FAX: Daniela Mari [phone] Name: TEVIN NYE [facility] : 1950 Age/S: 73/M [address] [place] [address] Unit #: [id number] Loc: G.5517 [place] [address] Phys: Daniela Mari AGACNP Acct: [id number] Dis Date: Status: ADM IN PHONE #: [phone] Exam Date: 04/09/2023 1210 FAX #: [phone] Reason: R/O PE, elevated D-dimer, SOB EXAMS: CPT CODE: [id number] NM LUNG PERF PARTICULATE 53704 PROCEDURE INFORMATION: Exam: NM Lung Perfusion Exam date and time: 04/09/2023 12:29 PM Age: 73 years old Clinical indication: Other: R/O pe, elevated d- dimer, SOB TECHNIQUE: Imaging protocol: Nuclear pulmonary perfusion imaging was performed. Views: Perfusion acquired with multiple projections. ADDITIONAL STUDY INFORMATION:Radiopharmaceutical: 5 mCi Tc-99m MAA (Macroaggregated Albumin), through the left antecubital IV. COMPARISON: DX XR CHEST 2 V 04/08/2023 2:38 PM FINDINGS: Perfusion: Decreased perfusion is seen to the upper lungs bilaterally. Moderate defect is seen to the lateral right upper lung. Mild decreased perfusion to the lateral left mid lung and [...] Samuel Mcguire MD; Elvie Gamboa MD; Daniela PIERCE [facility] Technologist: Yoanna Carrera ARRT (N)(CT) Trnscrd Date/Time/By: 04/09/2023 (1257) : By: BuckCS18 Orig Print D/T: S: 04/09/2023 (1257) PAGE 1 Signed ReportGLUCOSE BEDSIDE 2023-04-08 23:27:00* Test Item Value Reference Range Interpretation Comme nts GLUCOSE BEDSIDE (test code = GLUBED) 119 MG/DL 70-110 H Performed by cer yun laser machine operator at [facility] BASIC METABOLIC [id number] 22:19:00* Test Item Value Reference Range Interpretation [...] code = CA) 9.2 mg/dL 8.0-10.5 N [id number] 22:19:00* Test Item Value Reference Range Interpretation Comme nts MAGNESIUM (test code = MAG) 1.66 mg/dL 1.80-2.40 L CALCIUM [id number] 22:19:00* Test Item Value Reference Range Interpretation Comme nts CALCIUM IONIZED (test code = BIBIANA) 1.20 MMOL/L 1.09-1.30 N GLUCOSE [id number] 20:37:00* Test Item Value Reference Range Interpretation Comme nts GLUCOSE BEDSIDE (test code = GLUBED) 84 MG/DL 70-110 N Performed by cer tified laser machine operator at [facility] GLUCOSE [id number] 20:19:00* Test Item Value Reference Range Interpretation Comme [facility] GLUCOSE BEDSIDE (test code = GLUBED) 69 MG/DL 70-110 L Performed by cer tified laser machine operator at [facility] [id number] 17:06:00* Test Item Value Reference Range Interpretation Comme [facility] D-DIMER (test code = DDIMER) 1496 ng/mlFEU See_Comment HH Critical result called to Radha PEREZLAB.JJ1 at 1703 04/08/23Nurse read back result and tech confirmed it's correct? YESTHROMBOSIS AND/OR PULMONARY EMBOLISM AND THE CLINICAL CUT- OFF VALUE FOR EXCLUSION (500 ng/mL FEU) OF THESE CONDITIONSIS VALIDATED BY THE CLINICAL SPECIALIST VASCULAR OF THE METHOD. A NEGATIVE D-DIMER RESULT [...] as normal/abnormal. UA RFLX MICR CULT IF [id number] 15:41:00* Test Item Value Reference Range Interpretation [...] for culture: Dysuria/FrequencySpecimen Description: CLEAN CATCHB-TYPE NATRIURETIC [id number] 14:50:00* Test Item Value Reference Range Interpretation Comme nts B-TYPE NATRIURETIC PEPTIDE ( test code = BNP) 396.0 PG/ML 0-100 H COMPREHENSIVE METABOLIC [id number] 14:44:00* Test Item Value Reference Range Interpretation [...] ALKP) 89 IUnit/L 20-125 N TROP-I HIGH [id number] 14:44:00* Test Item Value Reference Range Interpretation [...] the URL. These results were obtained using [employer] IM TnIHreagent. Results from different methodologies should not becompared to one another as quantitative results and URLs mayvary by method. CBC W/AUTO [id number] 14:24:00* Test Item Value Reference Range Interpretation [...] 3/uL 0.0-0.1 N - XR CHEST 2 [id number] 00:00:00 [facility] : 1950 Sex: M FAX: Samuel Mcguire MD [place]: St: REG FAX: Paolo Arreola Name: CLEMENTTEVIN [facility] : 1950ge/S: 73/M [address] [place] [address] Unit #: [id number] Loc: [place] [address] Phys: Danny Arreola MD Acct: [id number] Dis Date: Status: REG ER PHONE #: [phone] Exam Date: 04/08/2023 [facility] FAX #: [phone] Reason: SOB, CHEST PAIN EXAMS: CPT CODE: [id number] XR CHEST 2 V 86009 PROCEDURE INFORMATION: Exam: XR Chest Exam date [...] in the right lower lung with prominent peribro nchiolar markings noted. at 1534 Reported and signed by: Karen Valentin M.D. CC: Samuel Mcguire MD; Paolo Arreola MD Technologist: RT Ofe(R) Trnscrd Date/Time/By: 04/08/2023 (1534) : By: BuckCER Orig Print D/T: S: 04/08/2023 (1530) PAGE 1 Signed Report- XR CHEST COMP [id number] 00:00:00 [facility]: TEVIN NYE : 1950 Sex: M FAX: Samuel Mcguire MD [place]: St: REG Name: TEVIN NYE [facility] [place] : 1950 Age/S: 72/M [address] [place] [address] Unit #: [id number] Loc: [place] [address] Phys: Samuel Mcguire MD Acct: [id number] DisDate: Status: REG CLI PHONE #: [phone] Exam Date: 03/19/20231510 FAX #: [phone] Reason: J44.9 EXAMS: CPT CODE: [id number] XR CHEST COMP 4+V 16889 PROCEDURE INFORMATION: Exam: XR Chest Examdate and time: 03/19/2023 2:37 PM Age: 72 [...] 1. Bilateral emphysema. 2. No acute changes. [id number] Reported and signed by: Lucille Mauricio M.D. CC: Samuel Mcguire MD Technologist: RT Stacia(R) Trnscrd Date/Time/By: 03/19/2023 (153) : By: BuckAB61 Raul Print D/T: S: 03/19/2023 (1539) PAGE 1 Signed ReportGLUCOSE BEDSIDE 2023-03-13 12:34:00* Test Item Value Reference Range Interpretation Comme nts GLUCOSE BEDSIDE (test code = GLUBED) 307 MG/DL 70-110 H Performed by cer tified laser machine operator at [facility] GLUCOSE [id number] 07:44:00* Test Item Value Reference Range Interpretation Comme nts GLUCOSE BEDSIDE (test code = GLUBED) 198 MG/DL 70-110 H Performed by cer tified laser machine operator at [facility] BASIC METABOLIC [id number] 05:21:00* Test Item Value Reference Range Interpretation [...] code = CA) 8.5 mg/dL 8.0-10.5 N [id number] 05:21:00* Test Item Value Reference Range Interpretation Comme nts MAGNESIUM (test code = MAG) 1.81 mg/dL 1.80-2.40 N CBC W/AUTO [id number] 05:05:00* Test Item Value Reference Range Interpretation [...] (test c ode = MDIFF) NO GLUCOSE [id number] 19:22:00* Test Item Value Reference Range Interpretation Comme nts GLUCOSE BEDSIDE (test code = GLUBED) 235 MG/DL 70-110 H Performed by cer tified laser machine operator at [facility] GLUCOSE [id number] 16:47:00* Test Item Value Reference Range Interpretation Comme nts GLUCOSE BEDSIDE (test code = GLUBED) 186 MG/DL 70-110 H Performed by cer tified laser machine operator at [facility] GLUCOSE [id number] 12:04:00* Test Item Value Reference Range Interpretation Comme nts GLUCOSE BEDSIDE (test code = GLUBED) 279 MG/DL 70-110 H Performed by cer tified laser machine operator at [facility] GLUCOSE [id number] 08:19:00* Test Item Value Reference Range Interpretation Comme nts GLUCOSE BEDSIDE (test code = GLUBED) 204 MG/DL 70-110 H Performed by cer tified laser machine operator at [facility] BASIC METABOLIC [id number] 04:59:00* Test Item Value Reference Range Interpretation [...] code = CA) 8.3 mg/dL 8.0-10.5 N [id number] 04:59:00* Test Item Value Reference Range Interpretation Comme nts MAGNESIUM (test code = MAG) 1.95 mg/dL 1.80-2.40 N CBC W/AUTO [id number] 04:48:00* Test Item Value Reference Range Interpretation [...] ode = MDIFF) NO - XR SWLW FUN W/C [id number] 00:00:00 [facility] : 1950 Sex: M FAX: Luci Wang [phone] [place]: GC St: [facility] FAX: Evon Garcia arnold [phone] - Name: TIGRE NYE : 1950 Age/S: 72/M [address] [place] [address] Unit #: [id number] Loc: Daniel3 [place] [address] Phys: Evon Andrew Acct: [id number] Dis Date: Status: ADM IN PHONE #: [phone] Exam Date: 03/12/2023 1352 FAX #: [phone] Reason: PROBLEMS SWALLOWING EXAMS: CPT CODE: [id number] XR SWLW FUNC W/C V 72229 PROCEDURE INFORMATION: Exam: FL Swallowing Function with Cine or Video Exam date and time: 03/12/2023 1:16 PM Age: 72 years old Clinical indication: Dysphagia (difficulty swallowing); Additional info: Problems swallowing TECHNIQUE: Imaging protocol: Swallowing function, with cineradiography/ videoradiograph. Guided with fluoroscopy. COMPARISON: CR XR CHEST 1V03/12/2023 5:54 AM RADIATION DOSE METRICS: Fluoroscopy time (seconds): seconds= 20 Number of fluoro spot images: images= 8 Reference air kerma (JUANCARLOS): 0.93 mGy FINDINGS: Assistants: See also separate speech pathology report. Sterile Instrument Technician: Mild multilevel cervical spondylosis. Procedure summary: Normal swallowing with solid and liquids. No aspiration. IMPRESSION: Unremarkable swallowing study. The reader is referred to dedicated speech therapy report for details. at 1425 Reported and signed by: Erlin Brown M.D. CC: Luci Beyer MD; Evon Andrew Technologist: RT Ofe(R) Trnscrd Date/Time/By: 03/12/2023 (1421) : By: Wilbert Orig Print D/T: S: 03/12/2023 (142) PAGE 1 Signed Report- ENRRIQUE ESCALERA [id number] 00:00:00 [facility] [place] [facility]: TEVIN NYE : 1950 Sex: M Name: TEVIN NYE [facility] Vidal Pope : 1950 Age/S: 72 / M [address] [place] [address] Blvd Unit #: [id number] Loc: TERESA Lerma [address] Phys: Evon Andrew Acct: [id number] Dis Date: Status: ADM IN PHONE #: [phone] Exam Date: 03/12/2023701 FAX #: [phone] Reason: R/O DVT EXAMS: CPT CODE: [id number] DUP VEIN SCOTTY 30906 PROCEDURE INFORMATION: Exam: US Duplex Lower Extremity Veins, Bilateral Exam date and time: 03/12/2023 6:29 AM Age: 72 years old Clinical indication: Screening exam; S/P cabg; Additional info: R/O dvt TECHNIQUE: Imaging protocol: Real-time duplex ultrasound of thebilateral extremities with 2-D nj scale, color Doppler flow and spectral waveform analysis including responses to compression and other maneuvers (when performed) with image documentation. Completeexam focused on the lower extremity veins. COMPARISON: US DUP VEIN SCOTTY 03/04/2023 4:44 AM FINDINGS:Right deep veins: Common femoral, superficial femoral, popliteal and posterior tibial veins are patent without thrombus. Normal Doppler waveforms. Normal compressibility and/or augmentation response.Right superficial veins: Saphenofemoral junction is patent without [...] and signed by: You Moore M.D. CC: Samia Carrillo MD; Evon Andrew Technologist: Nancy Márquez RDMS(AB)(OB) Trnscb Date/Time: 03/12/2023 (718) [email or web address] Orig Print D/T: S: 03/12/2023 (718) Probe: PAGE 1 Signed Report- XR CHEST 1 [id number] 00:00:00 [facility] 1950 Sex: M FAX: Luci Wang [phone] [place]: St: [facility] FAX: Evon Garcia y [phone] -- Name: REJI NYEMY [facility] : 1950 Age/S: 72/M [address] [place] [address] Unit #: [id number] Loc: TERESA Serrano [address] Phys: Evon Andrew Acct: [id number] Dis Date: Status: ADM IN PHONE #: [phone] Exam Date: 03/12/2023 06 FAX #: [phone] Reason: S/P CABG, R/O EFFUSION EXAMS: CPT CODE: [id number] XR CHEST 1 V 72570 PROCEDURE INFORMATION: Exam: XR Chest Exam date and time: 03/12/2023 5:54 AM Age: 72 years old Clinical indication: Other: S/P cabg, R/O effusion TECHNIQUE: Imaging protocol: Radiologic exam of the chest. Views: 1 view. COMPARISON: CR XR CHEST 1V 03/11/2023 5:41 AMFINDINGS: Tubes, catheters and devices: None. Lungs: Pcff-bz-vqmjgwsj bilateral perihilar and basilar interstitial lung opacities, suggesting pulmonary edema versus infiltrates. The peripheral lungs are otherwise clear. Bilateral pulmonary opacities are most prominent within the basilar lungs. The lung opacities appear stable to improved since previous imaging. Pleural spaces: Small volume bilateral pleural effusions. Heart/Mediastinum: Cardiac silhouette appears mildly enlarged. Vasculature: T ortuous and ectatic aorta is demonstrated. Mild atherosclerotic calcification demonstrated within the aorta. Bones/joints: Sternotomy wires, hardware is demonstrated. IMPRESSION: 1. Mild enlarged cardiac silhouette. 2. Small bilateral pleural effusions. 3. Dojl-gj-hnunaxsp pulmonary edema versus in filtrates. at 0733 Reported and signed by: David Espinal M.D. CC: Luci Beyer MD; Evon RamirezyerTechnologist: RT Perla(Karuna) Trnscrd Date/Time/By: 03/12/2023 (0733) : By: [email or web address] Orig Print D/T: S: 03/12/2023 (0733) PAGE 1 Signed ReportGLUCOSE [id number] 20:22:00* Test Item Value Reference Range Interpretation Comme nts GLUCOSE BEDSIDE (test code = GLUBED) 136 MG/DL 70-110 H Performed by cer tified laser machine operator at [facility] GLUCOSE [id number] 18:31:00* Test Item Value Reference Range Interpretation Comme nts GLUCOSE BEDSIDE (test code = GLUBED) 199 MG/DL 70-110 H Performed by [facility] tified laser machine operator at [facility] GLUCOSE [id number] 15:02:00* Test Item Value Reference Range Interpretation Comme nts GLUCOSE BEDSIDE (test code = GLUBED) 206 MG/DL 70-110 H Performed by cer tified laser machine operator at [facility] GLUCOSE [id number] 11:44:00* Test Item Value Reference Range Interpretation Comme nts GLUCOSE BEDSIDE (test code = GLUBED) 196 MG/DL 70-110 H Performed by cer tified laser machine operator at [facility] CBC W/AUTO [id number] 04:54:00* Test Item Value Reference Range Interpretation [...] c ode = MDIFF) NO BASIC METABOLIC [id number] 04:47:00* Test Item Value Reference Range Interpretation [...] code = CA) 8.7 mg/dL 8.0-10.5 N [id number] 04:47:00* Test Item Value Reference Range Interpretation Comme nts MAGNESIUM (test code = MAG) 2.13 mg/dL 1.80-2.40 - XR CHEST 1 [id number] 00:00:00 [facility] 1950 Sex: M FAX: Luci Wang [phone] [place]: St: ADM FAX: Evon Garcia [facility] [phone] -- Name: TEVIN NYE [facility] : 1950 Age/S: 72/M [address] [place] [address] Unit #: [id number] Loc: G.3343 [place] [address] Phys: Evon Andrew Physic Acct: [id number] Dis Date: Status: ADM IN PHONE #: [phone] Exam Date: 03/11/2023 0650 FAX #: [phone] Reason: S/P CABG, R/O EFFUSION EXAMS: CPTCODE: [id number] XR CHEST 1 V 39772 PROCEDURE INFORMATION: Exam: XR Chest Exam date [...] Small volume bilateral pleural effusions. No pneumothorax identi fied. Heart/Mediastinum: Cardiac silhouette appears mildly enlarged. Vasculature: Mild atherosclerotic calcification demonstrated within the aorta. Bones/joints: Sternotomy wires, hardware is demonstrated. Mild generalized bony degenerative changes. Bony structures appear otherwise unremarkable. IMPRESSION: 1. Moderate pulmonary edema versus infiltrates, pneumonia. 2. Small bilateral pleural effusions. 3. Mild enlarged cardiac silhouette. at 0730 Reported and signed by: David Espinal M.D. CC: Luci Beeyr MD; Evon Andrew Technologist: RT Perla(Karuna) Trnscrd Date/Time/By: 03/11/2023 (729) : By: [email or web address] Orig Print D/T: S: 03/11/2023 (729) PAGE 1 Signed ReportGLUCOSE [id number] 20:50:00* Test Item Value Reference Range Interpretation Comme nts GLUCOSE BEDSIDE (test code = GLUBED) 231 MG/DL 70-110 H Performed by cer tified laser machine operator at [facility] GLUCOSE [id number] 12:37:00* Test Item Value Reference Range Interpretation Comme nts GLUCOSE BEDSIDE (test code = GLUBED) 197 MG/DL 70-110 H Performed by cer tified laser machine operator at [facility] GLUCOSE [id number] 08:42:00* Test Item Value Reference Range Interpretation Comme nts GLUCOSE BEDSIDE (test code = GLUBED) 198 MG/DL 70-110 H Performed by [facility] tified laser machine operator at [facility] BASIC METABOLIC [id number] 03:47:00* Test Item Value Reference Range Interpretation [...] code = CA) 8.2 mg/dL 8.0-10.5 N [id number] 03:47:00* Test Item Value Reference Range Interpretation Comme nts MAGNESIUM (test code = MAG) 2.52 mg/dL 1.80-2.40 H CALCIUM [id number] 03:47:00* Test Item Value Reference Range Interpretation Comme nts CALCIUM IONIZED (test code = BIBIANA) 1.09 MMOL/L 1.09-1.30 N CBC W/AUTO [id number] 03:31:00* Test Item Value Reference Range Interpretation [...] ode = MDIFF) NO POC ARTERIAL BLOOD [id number] 03:20:00* Test Item Value Reference Range Interpretation Comme nts POC ARTERIAL BLOOD GAS PH (t est code = POCPHA) 7.438 7.35-7.45 N POC ARTERIAL BLOOD GAS PCO2 (test code = ONUDOE1Y) 39.5 mmHg 35.0-45 N POC TCO2 ARTERIAL (test code = POCTCO2) 28.2 POC ARTERIAL BLOOD GAS PO2 ( test code = OWRYQ8L) 93.2 mmHg 80-100.0 N POC HCO3 ARTERIAL (test code = FNIWOD6Y) 26.9 MMOL/L 22.0-26.0 H POC BASE EXCESS (test code = POCBEA) 2.5 MMOL/L -4.0-4.0 N POC O2 SATURATION (test code = POCO2S) 97.7 % 90-100 N ABG DELIVERY (test code = RACIEL) HFNC ABG TEMPERATURE (test code = TEMPA) 97.2 F ABG SITE (test code = SITEA) Art Line SHAYLA'S TEST (test code = ALLENS) Positive BASIC METABOLIC [id number] 03:20:00* Test Item Value Reference Range Interpretation [...] = POCGLU) 147 MG/DL 70-110 H HEMOGLOBIN [id number] 03:20:00* Test Item Value Reference Range Interpretation Comme nts HEMOGLOBIN ABG (test code = HGB/ABG) 11.0 G/DL 12.5-16.9 L [id number] 03:20:00* Test Item Value Reference Range Interpretation Comme nts HEMATOCRIT (test code = HCT/ABG) 32 % 37.5-50.7 L POC LACTIC [id number] 03:20:00* Test Item Value Reference Range Interpretation Comme nts POC LACTIC ACID (test code = POCLAC) 0.4 mmol/l 0.9-1.7 L - XR CHEST 1 [id number] 00:00:00 [facility] : 1950 Sex: M FAX: Luci Wang [phone] [place]: St: ADM FAX: Evon Garcia [facility] [phone] -- Name: TEVIN NYE [facility] : 1950 Age/S: 72/M [address] [place] [address] Unit #: [id number] Loc: G.[address] [place] [address] Phys: Evon Andrew Physic Acct: [id number] Dis Date: Status: ADM IN PHONE #: [phone] Exam Date: 03/10/2023513 FAX #: [phone] Reason: Cardiac Surgery Post Op EXAMS: CPT CODE: [id number] XR CHEST 1 V 91390 PROCEDURE INFORMATION: Exam: XR Chest Exam date [...] the right side. Heart/Mediastinum: Cardiac silhouette appears gdra-fu-ksyzqzausc enlarged. Vasculature: Mild atherosclerotic calcification demonstrated within the aorta. Bones/joints: Sternotomy wires, hardware is demonstrated. Mild generalized bony degenerative changes. Soft tissues: Right neck sheath tip is positioned over the upper chest region. This study is limited by patient's body habitus. IMPRESSION: 1. Small to moderate bilateral pleural effusions. 2. Moderate pulmonary edema versus infiltrates, pneumonia. 3. Iwry-dr-vvfjmljrfa enlarged cardiac silhouette. at 0734 Reported and signed by: David Espinal M.D. CC: Luci Beyer MD; Evon Andrew Technologist: RT Lelia(Karuna) Trnscrd Date/Time/By: 03/10/2023 (0734) : By: BuckMSR4 [facility] Print D/T:S: 03/10/2023 (0734) PAGE 1 Signed ReportGLUCOSE [id number] 19:50:00* Test Item Value Reference Range Interpretation Comme nts GLUCOSE BEDSIDE (test code = GLUBED) 173 MG/DL 70-110 H Performed by wendy ferguson at [facility] BASIC METABOLIC [id number] 16:06:00* Test Item Value Reference Range Interpretation [...] = CA) 8.7 mg/dL 8.0-10.5 N GLUCOSE [id number] 10:39:00* Test Item Value Reference Range Interpretation Comme nts GLUCOSE BEDSIDE (test code = GLUBED) 197 MG/DL 70-110 H Performed by cer tified laser machine operator at [facility] GLUCOSE [id number] 04:14:00* Test Item Value Reference Range Interpretation Comme nts GLUCOSE BEDSIDE (test code = GLUBED) 123 MG/DL 70-110 H Performed by [employer] laser machine operator at [facility] BASIC METABOLIC [id number] 02:38:00* Test Item Value Reference Range Interpretation [...] code = CA) 8.6 mg/dL 8.0-10.5 N [id number] 02:38:00* Test Item Value Reference Range Interpretation Comme nts MAGNESIUM (test code = MAG) 2.70 mg/dL 1.80-2.40 H CBC W/AUTO [id number] 02:35:00* Test Item Value Reference Range Interpretation [...] ode = MDIFF) NO POC ARTERIAL BLOOD [id number] 02:05:00* Test Item Value Reference Range Interpretation Comme nts POC ARTERIAL BLOOD GAS PH (t est code = POCPHA) 7.455 7.35-7.45 H POC ARTERIAL BLOOD GAS PCO2 (test code = SMCWAJ1M) 39.2 mmHg 35.0-45 N POC TCO2 ARTERIAL (test code = POCTCO2) 28.8 POC ARTERIAL BLOOD GAS PO2 ( test code = LVRVG5Q) 81.3 mmHg 80-100.0 N POC HCO3 ARTERIAL (test code = MLCERA7I) 27.6 MMOL/L 22.0-26.0 H POC BASE EXCESS (test code = POCBEA) 3.7 MMOL/L -4.0-4.0 N POC O2 SATURATION (test code = POCO2S) 96.6 % 90-100 N ABG DELIVERY (test code = RACIEL) HFNC ABG TEMPERATURE (test code = TEMPA) 98.3 F ABG SITE (test code = SITEA) Art Line SHAYLA'S TEST (test code = ALLENS) N/A BASIC METABOLIC [id number] 02:05:00* Test Item Value Reference Range Interpretation [...] = POCGLU) 212 MG/DL 70-110 H HEMOGLOBIN [id number] 02:05:00* Test Item Value Reference Range Interpretation Comme nts HEMOGLOBIN ABG (test code = HGB/ABG) 11.1 G/DL 12.5-16.9 L [id number] 02:05:00* Test Item Value Reference Range Interpretation Comme nts HEMATOCRIT (test code = HCT/ABG) 33 % 37.5-50.7 L POC LACTIC [id number] 02:05:00* Test Item Value Reference Range Interpretation Comme [facility] POC LACTIC ACID (test code = POCLAC) 0.6 mmol/l 0.9-1.7 L GLUCOSE [id number] 01:25:00* Test Item Value Reference Range Interpretation Comme [facility] GLUCOSE BEDSIDE (test code = GLUBED) 244 MG/DL 70-110 H Performed by cer tified laser machine operator at [facility] GLUCOSE [id number] 00:45:00* Test Item Value Reference Range Interpretation Comme [facility] GLUCOSE BEDSIDE (test code = GLUBED) 252 MG/DL 70-110 H Performed by [facility] tified laser machine operator at [facility] - XR CHEST 1 [id number] 00:00:00 [facility] 1950 Sex: M FAX: Luci Wang [phone] [place]: St: ADM FAX: Evon Garcia y [phone] - Name: TIGRE NYE : 1950 Age/S: 72/M [address] [place] [address] Unit #: [id number] Loc: [address] [place] [address] Phys: Evon Andrew Physic Acct: [id number] Dis Date: Status: ADM IN PHONE #: [phone] Exam Date: 03/09/2023 0802 FAX #: [phone] Reason: Cardiac Surgery Post Op EXAMS: CPT CODE: [id number] XR CHEST 1 V 67208 PROCEDURE INFORMATION: Exam: XR Chest Exam date [...] wires and surgical clips suggesting prior CABG. Sander janneth/joints: Stable. IMPRESSION: No significant change in the lungs. at 0817 Reported and signed by: Ezekiel Esteves M.D. CC: Samia Carrillo MD; Evon Andrew Technologist: SHONNA Kaufman) Trnscrd Date/Time/By: 03/09/2023 (816) : By: [email or web address] Orig Print D/T: S: 03/09/2023 (817) PAGE 1 Signed ReportGLUCOSE [id number] 23:42:00* Test Item Value Reference Range Interpretation Comme nts GLUCOSE BEDSIDE (test code = GLUBED) 215 MG/DL 70-110 H Performed by cer tified laser machine operator at [facility] GLUCOSE [id number] 21:41:00* Test Item Value Reference Range Interpretation Comme nts GLUCOSE BEDSIDE (test code = GLUBED) 193 MG/DL 70-110 H Performed by [facility] tified laser machine operator at [facility] GLUCOSE [id number] 19:45:00* Test Item Value Reference Range Interpretation Comme nts GLUCOSE BEDSIDE (test code = GLUBED) 234 MG/DL 70-110 H Performed by [facility] tified laser machine operator at [facility] BASIC METABOLIC [id number] 18:44:00* Test Item Value Reference Range Interpretation [...] = CA) 8.2 mg/dL 8.0-10.5 N GLUCOSE [id number] 15:57:00* Test Item Value Reference Range Interpretation Comme nts GLUCOSE BEDSIDE (test code = GLUBED) 218 MG/DL 70-110 H Performed by cer tified laser machine operator at [facility] GLUCOSE [id number] 10:10:00* Test Item Value Reference Range Interpretation Comme nts GLUCOSE BEDSIDE (test code = GLUBED) 229 MG/DL 70-110 H Performed by cer tified laser machine operator at [facility] GLUCOSE [id number] 08:16:00* Test Item Value Reference Range Interpretation Comme nts GLUCOSE BEDSIDE (test code = GLUBED) 136 MG/DL 70-110 H Performed by cer tified laser machine operator at [facility] GLUCOSE [id number] 06:37:00* Test Item Value Reference Range Interpretation Comme nts GLUCOSE BEDSIDE (test code = GLUBED) 132 MG/DL 70-110 H Performed by cer tified laser machine operator at [facility] BASIC METABOLIC [id number] 02:36:00* Test Item Value Reference Range Interpretation [...] code = CA) 7.9 mg/dL 8.0-10.5 L [id number] 02:36:00* Test Item Value Reference Range Interpretation Comme nts MAGNESIUM (test code = MAG) 2.83 mg/dL 1.80-2.40 H CBC W/AUTO [id number] 02:24:00* Test Item Value Reference Range Interpretation [...] (test c ode = MDIFF) NO GLUCOSE [id number] 02:23:00* Test Item Value Reference Range Interpretation Comme nts GLUCOSE BEDSIDE (test code = GLUBED) 121 MG/DL 70-110 H Performed by cer yun laser machine operator at [facility] POC ARTERIAL BLOOD [id number] 02:22:00* Test Item Value Reference Range Interpretation Comme nts POC ARTERIAL BLOOD GAS PH (t est code = POCPHA) 7.352 7.35-7.45 N POC ARTERIAL BLOOD GAS PCO2 (test code = VCBIHP8G) 52.2 mmHg 35.0-45 HH POC TCO2 ARTERIAL (test code = POCTCO2) 30.7 POC ARTERIAL BLOOD GAS PO2 ( test code = VHWVR3W) 156.1 mmHg 80-100.0 H POC HCO3 ARTERIAL (test code = AZDOCG6O) 29.0 MMOL/L 22.0-26.0 HH POC BASE EXCESS (test code = POCBEA) 3.4 MMOL/L -4.0-4.0 N POC O2 SATURATION (test code = POCO2S) 99.3 % 90-100 N ABG DELIVERY (test code = RACIEL) HFNC ABG TEMPERATURE (test code = TEMPA) 98.2 F ABG SITE (test code = SITEA) Art Line SHAYLA'S TEST (test code = ALLENS) N/A BASIC METABOLIC [id number] 02:22:00* Test Item Value Reference Range Interpretation [...] = POCGLU) 102 MG/DL 70-110 N HEMOGLOBIN [id number] 02:22:00* Test Item Value Reference Range Interpretation Comme nts HEMOGLOBIN ABG (test code = HGB/ABG) 9.5 G/DL 12.5-16.9 L [id number] 02:22:00* Test Item Value Reference Range Interpretation Comme nts HEMATOCRIT (test code = HCT/ABG) 28 % 37.5-50.7 L POC LACTIC [id number] 02:22:00* Test Item Value Reference Range Interpretation Comme [facility] POC LACTIC ACID (test code = POCLAC) < 0.3 mmol/l 0.9-1.7 L GLUCOSE [id number] 00:53:00* Test Item Value Reference Range Interpretation Comme [facility] GLUCOSE BEDSIDE (test code = GLUBED) 126 MG/DL 70-110 H Performed by cer janisied laser machine operator at [facility] - XR CHEST 1 [id number] 00:00:00 [facility] 1950 Sex: M FAX: Luci Wang [phone] [place]: St: ADM FAX: Evon Garcia Phy [phone] -- Name: TEVIN NYE [facility] : 1950 Age/S: 72/M [address] [place] [address] Unit #: [id number] Loc: G.[address] [place] [address] Phys: Evon Andrew Physic Acct: [id number] Dis Date: Status: ADM IN PHONE #: [phone] Exam Date: 03/08/2023818 FAX #: [phone] Reason: Cardiac Surgery Post Op EXAMS: CPT CODE: [id number] XR CHEST 1 V 02773 PROCEDURE INFORMATION: Exam: XR Chest Exam date [...] signed by: Ezekiel Esteves M.D. CC: Luci Beyer MD; Evon Veloz Physic Kamran Technologist: Vamsi Florez, RT(R); Keila Botello RT(R) Trnscrd Date/Time/By: 03/08/2023 (0835) : By: BuckAB53 PAGE 1 Signed ReportGLUCOSE [id number] 23:01:00* Test Item Value Reference Range Interpretation Comme nts GLUCOSE BEDSIDE (test code = GLUBED) 128 MG/DL 70-110 H Performed by cer tified laser machine operator at [facility] GLUCOSE [id number] 21:38:00* Test Item Value Reference Range Interpretation Comme nts GLUCOSE BEDSIDE (test code = GLUBED) 132 MG/DL 70-110 H Performed by cer tified laser machine operator at [facility] GLUCOSE [id number] 20:10:00* Test Item Value Reference Range Interpretation Comme nts GLUCOSE BEDSIDE (test code = GLUBED) 94 MG/DL 70-110 N Performed by cer tified laser machine operator at [facility] BASIC METABOLIC [id number] 18:01:00* Test Item Value Reference Range Interpretation [...] = CA) 8.2 mg/dL 8.0-10.5 N GLUCOSE [id number] 16:10:00* Test Item Value Reference Range Interpretation Comme nts GLUCOSE BEDSIDE (test code = GLUBED) 189 MG/DL 70-110 H Performed by cer tified laser machine operator at [facility] GLUCOSE [id number] 12:07:00* Test Item Value Reference Range Interpretation Comme nts GLUCOSE BEDSIDE (test code = GLUBED) 202 MG/DL 70-110 H Performed by cer tified laser machine operator at [facility] BASIC METABOLIC [id number] 09:31:00* Test Item Value Reference Range Interpretation [...] = CA) 8.3 mg/dL 8.0-10.5 N GLUCOSE [id number] 08:19:00* Test Item Value Reference Range Interpretation Comme nts GLUCOSE BEDSIDE (test code = GLUBED) 183 MG/DL 70-110 H Performed by cer tified laser machine operator at [facility] BASIC METABOLIC [id number] 03:33:00* Test Item Value Reference Range Interpretation [...] mg/dL 8.0-10.5 N COMMENTS: POD #1HEPATIC FUNCTION [id number] 03:33:00* Test Item Value Reference Range Interpretation [...] ALKP) 41 IUnit/L 20-125 N COMMENTS: POD #[id number] 03:33:00* Test Item Value Reference Range Interpretation Comme nts MAGNESIUM (test code = MAG) 2.71 mg/dL 1.80-2.40 H COMMENTS: POD #1CBC W/AUTO [id number] 03:29:00* Test Item Value Reference Range Interpretation [...] ode = MDIFF) NO POC ARTERIAL BLOOD [id number] 02:41:00* Test Item Value Reference Range Interpretation Comme nts POC ARTERIAL BLOOD GAS PH (t est code = POCPHA) 7.361 7.35-7.45 N POC ARTERIAL BLOOD GAS PCO2 (test code = VJACVL7O) 49.1 mmHg 35.0-45 H POC TCO2 ARTERIAL (test code = POCTCO2) 29.3 POC ARTERIAL BLOOD GAS PO2 ( test code = CMUKG4Q) 79.1 mmHg 80-100.0 L POC HCO3 ARTERIAL (test code = GTMLLJ0D) 27.8 MMOL/L 22.0-26.0 H POC BASE EXCESS (test code = POCBEA) 2.3 MMOL/L -4.0-4.0 N POC O2 SATURATION (test code = POCO2S) 94.9 % 90-100 N ABG DELIVERY (test code = RACIEL) HFNC ABG SITE (test code = SITEA) Art Line SHAYLA'S TEST (test code = ALLENS) Positive BASIC METABOLIC [id number] 02:41:00* Test Item Value Reference Range Interpretation [...] = POCGLU) 128 MG/DL 70-110 H HEMOGLOBIN [id number] 02:41:00* Test Item Value Reference Range Interpretation Comme nts HEMOGLOBIN ABG (test code = HGB/ABG) 10.7 G/DL 12.5-16.9 L [id number] 02:41:00* Test Item Value Reference Range Interpretation Comme nts HEMATOCRIT (test code = HCT/ABG) 32 % 37.5-50.7 L GLUCOSE [id number] 01:24:00* Test Item Value Reference Range Interpretation Comme nts GLUCOSE BEDSIDE (test code = GLUBED) 134 MG/DL 70-110 H Performed by wendy ferguson at [facility] - XR CHEST 1 [id number] 00:00:00 [facility] 1950 Sex: M FAX: Luci Wang [phone] [place]: St: [facility] FAX: Evon Garcia y [phone] - Name: TIGRE NYE [place] : 1950 Age/S: 72/M [address] [place] [address] Unit #: [id number] Loc: G2201 [place] [address] Phys: Evon Andrew Acct: [id number] Dis Date: Status: ADM IN PHONE #: [phone] Exam Date: 03/07/2023510 FAX #: [phone] Reason: Cardiac Surgery Post Op EXAMS: CPT CODE: [id number] XR CHEST 1 V 40014 PROCEDURE INFORMATION: Exam: XR Chest Exam date and time: 03/07/2023 5:09 AM Age: 72 years old Clinical indication: Other: Cardiac surgery post op TECHNIQUE: Imaging protocol: Radiologic exam of the chest. Views: 1 view. COMPARISON: 1. CR XR CHEST 1V 35:07 AM 2. CR XR CHEST 1V 03/05/2023 4:59 AM FINDINGS: Limitations: Suboptimal positioning with portions of the lung bases beyond the field of view. Tubes, catheters and devices: Isabella-Murray catheter sheath in place. Left thoracostomy drain in place. Lungs: Indistinct interstitial lines bilateral. Indistinct basilar opacities asymmetric on the right. The right hemidiaphragm is now obscured. The left remains partially visible. Pleural spaces: Small left pneumothorax with separation at the apex lessthan 1 cm, without significant change. The costophrenic angles are indistinct. Heart/Mediastinum: The cardiomediastinal silhouette is stable. Bones/joints: Sternotomy wires are intact. IMPRESSION: 1. Increased interstitial opacities compatible with edema. 2. Increased right pleural effusion with associated basilar atelectasis versus airspace disease. 3. Stable small volume left pneumothorax withthoracostomy tube in place. Stable left basilar pleuroparenchymal changes. at 0758 Reported and signed by: Erlin Brown M.D. CC: Luci Beyer MD; Evon Andrew Technologist: RT Lelia(R) Trnscrd Date/Time/By: 03/07/2023 (0758) : By: Wilbert Orig Print D/T: S: 03/07/2023 (0758) PAGE 1 Signed ReportGLUCOSE BEDSIDE 2023-03-06 23:17:00* Test Item Value Reference Range Interpretation Comme nts GLUCOSE BEDSIDE (test code = GLUBED) 181 MG/DL 70-110 H Performed by cer yun laser machine operator at [facility] POC ARTERIAL BLOOD [id number] 21:10:00* Test Item Value Reference Range Interpretation Comme nts POC ARTERIAL BLOOD GAS PH (t est code = POCPHA) 7.385 7.35-7.45 N POC ARTERIAL BLOOD GAS PCO2 (test code = VFIPFR3K) 44.2 mmHg 35.0-45 N POC TCO2 ARTERIAL (test code = POCTCO2) 27.7 POC ARTERIAL BLOOD GAS PO2 ( test code = TLXVW4D) 75.5 mmHg 80-100.0 L POC HCO3 ARTERIAL (test code = EBZRVF7R) 26.4 MMOL/L 22.0-26.0 H POC BASE EXCESS (test code = POCBEA) 1.4 MMOL/L -4.0-4.0 N POC O2 SATURATION (test code = POCO2S) 94.5 % 90-100 N ABG DELIVERY (test code = RACIEL) Cannula ABG TEMPERATURE (test code = TEMPA) 99 F ABG SITE (test code = SITEA) Art Line SHAYLA'S TEST (test code = ALLENS) Positive BASIC METABOLIC [id number] 21:10:00* Test Item Value Reference Range Interpretation [...] = POCGLU) 213 MG/DL 70-110 H HEMOGLOBIN [id number] 21:10:00* Test Item Value Reference Range Interpretation Comme nts HEMOGLOBIN ABG (test code = HGB/ABG) 10.5 G/DL 12.5-16.9 L [id number] 21:10:00* Test Item Value Reference Range Interpretation Comme nts HEMATOCRIT (test code = HCT/ABG) 31 % 37.5-50.7 L BASIC METABOLIC [id number] 20:32:00* Test Item Value Reference Range Interpretation [...] code = CA) 8.4 mg/dL 8.0-10.5 N [id number] 20:32:00* Test Item Value Reference Range Interpretation Comme nts MAGNESIUM (test code = MAG) 2.53 mg/dL 1.80-2.40 H CBC W/AUTO [id number] 16:47:00* Test Item Value Reference Range Interpretation [...] ode = MDIFF) NO POC ARTERIAL BLOOD [id number] 16:14:00* Test Item Value Reference Range Interpretation Comme nts POC ARTERIAL BLOOD GAS PH (t est code = POCPHA) 7.331 7.35-7.45 L POC ARTERIAL BLOOD GAS PCO2 (test code = SGEAMV0G) 51.3 mmHg 35.0-45 HH POC TCO2 ARTERIAL (test code = POCTCO2) 28.5 POC ARTERIAL BLOOD GAS PO2 ( test code = CEJAI3E) 112.0 mmHg 80-100.0 H POC HCO3 ARTERIAL (test code = FZGFRS2L) 27.0 MMOL/L 22.0-26.0 H POC BASE EXCESS (test code = POCBEA) 1.2 MMOL/L -4.0-4.0 N POC O2 SATURATION (test code = POCO2S) 97.8 % 90-100 N ABG DELIVERY (test code = RACIEL) Cannula ABG TEMPERATURE (test code = TEMPA) 99.3 F ABG SITE (test code = SITEA) Art Line BASIC METABOLIC [id number] 16:14:00* Test Item Value Reference Range Interpretation [...] = POCGLU) 131 MG/DL 70-110 H HEMOGLOBIN [id number] 16:14:00* Test Item Value Reference Range Interpretation Comme nts HEMOGLOBIN ABG (test code = HGB/ABG) 10.0 G/DL 12.5-16.9 L [id number] 16:14:00* Test Item Value Reference Range Interpretation Comme nts HEMATOCRIT (test code = HCT/ABG) 29 % 37.5-50.7 L POC LACTIC [id number] 16:14:00* Test Item Value Reference Range Interpretation Comme nts POC LACTIC ACID (test code = POCLAC) 0.4 mmol/l 0.9-1.7 L GLUCOSE [id number] 14:02:00* Test Item Value Reference Range Interpretation Fabiola catherine GLUCOSE BEDSIDE (test code = GLUBED) 176 MG/DL 70-110 H Performed by wendy ferguson at [facility] [id number] 13:38:00* Test Item Value Reference Range Interpretation Comments SURGICAL (test code = SR) RUN DATE: 03/06/23 [place] - LAB PAGE 1 RUN TIME: 1338 Specimen Inquiry RUN USER: INTERFACE PATIENT: TEVIN NYE LOC: CEDRICKU U #: [id number] AGE/SX: 72/M ROOM: [facility] RE03/03/23FERNIE DR: Luci Beyer : [birth year] BED: 1 DIS: STATUS: ADM IN TLOC: SPEC #: [id number] RECD: 03/05/23-1015 STATUS: GILBERT FORREST #: [id number] BHAVANI: 03/04/23- SUBM DR: Luci Beyer MD ENTERED: 03/05/23 SP TYPE: SURGICAL OTHR DR: No Primary or Family Physician Self Referred Noé Madrid MD, Molham MD Alnas, MajdORDERED: [id number], ANATOMIC SPEC COPIES TO: No Primary or Family Physician Self Referred Noé Madrid MD [address] [place] [address] Anibal Haynes MD [address] [place] [address] Sharmila Alan [address] [facility] [place] [address] [place] [address] Luci Beyer MD [address] [place] [address]. [address] [place] [address] PROCEDURES: 08799 (03/05/23) TISSUES: A. ATRIUM - LEFT ATRIAL APPENDAGE CLINICAL HISTORY SAME CONTINUED ON NEXT PAGE RUN DATE: 03/06/23 [place] - LAB PAGE 2 RUN TIME: 1338 Specimen Inquiry RUN USER: INTERFACE SPEC #: [id number] PATIENT: TEVIN NYE #[id number] (Continued) - FINAL DIAGNOSIS Heart, left atrial appendage, submitted: Cardiac muscle with some degenerative changes,consistent with atrial appendage. GROSS DESCRIPTION Received in formalin labeled left atrial appendage is a 3.5 x 2 x 1 cm portion of cysticmuscular tissue with attached adipose submitted (A). Technical component performed at [facility],[address] [place] [address] Unless gross only, the diagnosis is based [...] Su 03/06/23 1338 END OF REPORT GLUCOSE [id number] 12:19:00* Test Item Value Reference Range Interpretation Comme nts GLUCOSE BEDSIDE (test code = GLUBED) 152 MG/DL 70-110 H Performed by wendy malcolm laser machine operator at [facility] POC ARTERIAL BLOOD [id number] 10:46:00* Test Item Value Reference Range Interpretation Comme nts POC ARTERIAL BLOOD GAS PH (t est code = POCPHA) 7.320 7.35-7.45 L POC ARTERIAL BLOOD GAS PCO2 (test code = ANQYFS0S) 51.3 mmHg 35.0-45 HH POC TCO2 ARTERIAL (test code = POCTCO2) 27.9 POC ARTERIAL BLOOD GAS PO2 ( test code = JPBHE6S) 86.5 mmHg 80-100.0 N POC HCO3 ARTERIAL (test code = GMYPAF4F) 26.3 MMOL/L 22.0-26.0 H POC BASE EXCESS (test code = POCBEA) 0.3 MMOL/L -4.0-4.0 N POC O2 SATURATION (test code = POCO2S) 95.4 % 90-100 N ABG DELIVERY (test code = RACIEL) Cannula ABG TEMPERATURE (test code = TEMPA) 99.1 F ABG SITE (test code = SITEA) Art Line BASIC METABOLIC [id number] 10:46:00* Test Item Value Reference Range Interpretation [...] = POCGLU) 146 MG/DL 70-110 H HEMOGLOBIN [id number] 10:46:00* Test Item Value Reference Range Interpretation Comme nts HEMOGLOBIN ABG (test code = HGB/ABG) 8.6 G/DL 12.5-16.9 L [id number] 10:46:00* Test Item Value Reference Range Interpretation Comme nts HEMATOCRIT (test code = HCT/ABG) 25 % 37.5-50.7 L POC LACTIC [id number] 10:46:00* Test Item Value Reference Range Interpretation Comme nts POC LACTIC ACID (test code = POCLAC) 0.7 mmol/l 0.9-1.7 L GLUCOSE [id number] 08:47:00* Test Item Value Reference Range Interpretation Comme nts GLUCOSE BEDSIDE (test code = GLUBED) 130 MG/DL 70-110 H Performed by wendy malcolm laser machine operator at [facility] POC ARTERIAL BLOOD [id number] 05:54:00* Test Item Value Reference Range Interpretation Comme nts POC ARTERIAL BLOOD GAS PH (t est code = POCPHA) 7.318 7.35-7.45 L POC ARTERIAL BLOOD GAS PCO2 (test code = UARGWE7I) 52.4 mmHg 35.0-45 HH POC TCO2 ARTERIAL (test code = POCTCO2) 28.4 POC ARTERIAL BLOOD GAS PO2 ( test code = WIZJZ7J) 74.1 mmHg 80-100.0 L POC HCO3 ARTERIAL (test code = NCJCQW4M) 26.8 MMOL/L 22.0-26.0 H POC BASE EXCESS (test code = POCBEA) 0.7 MMOL/L -4.0-4.0 N POC O2 SATURATION (test code = POCO2S) 93.1 % 90-100 N ABG DELIVERY (test code = RACIEL) 2L HFNC ABG SITE (test code = SITEA) Art Line BASIC METABOLIC [id number] 05:54:00* Test Item Value Reference Range Interpretation [...] = POCGLU) 128 MG/DL 70-110 H HEMOGLOBIN [id number] 05:54:00* Test Item Value Reference Range Interpretation Comme nts HEMOGLOBIN ABG (test code = HGB/ABG) 7.0 G/DL 12.5-16.9 L [id number] 05:54:00* Test Item Value Reference Range Interpretation Comme nts HEMATOCRIT (test code = HCT/ABG) 21 % 37.5-50.7 L POC LACTIC [id number] 05:54:00* Test Item Value Reference Range Interpretation Comme nts POC LACTIC ACID (test code = POCLAC) 0.3 mmol/l 0.9-1.7 L BASIC METABOLIC [id number] 03:47:00* Test Item Value Reference Range Interpretation [...] mg/dL 8.0-10.5 N COMMENTS: POD #1HEPATIC FUNCTION [id number] 03:47:00* Test Item Value Reference Range Interpretation [...] ALKP) 30 IUnit/L 20-125 N COMMENTS: POD #[id number] 03:47:00* Test Item Value Reference Range Interpretation Comme nts MAGNESIUM (test code = MAG) 2.60 mg/dL 1.80-2.40 H COMMENTS: POD #1POC ARTERIAL BLOOD [id number] 01:35:00* Test Item Value Reference Range Interpretation Comme nts POC ARTERIAL BLOOD GAS PH (t est code = POCPHA) 7.318 7.35-7.45 L POC ARTERIAL BLOOD GAS PCO2 (test code = QMBNAV5C) 54.4 mmHg 35.0-45 HH POC TCO2 ARTERIAL (test code = POCTCO2) 29.5 POC ARTERIAL BLOOD GAS PO2 ( test code = DIZZI8J) 147.3 mmHg 80-100.0 H POC HCO3 ARTERIAL (test code = QTKJTE9O) 27.9 MMOL/L 22.0-26.0 H POC BASE EXCESS (test code = POCBEA) 1.7 MMOL/L -4.0-4.0 N POC O2 SATURATION (test code = POCO2S) 99.0 % 90-100 N ABG DELIVERY (test code = RACIEL) 4L HFNC ABG SITE (test code = SITEA) Art Line BASIC METABOLIC [id number] 01:35:00* Test Item Value Reference Range Interpretation [...] = POCGLU) 114 MG/DL 70-110 H HEMOGLOBIN [id number] 01:35:00* Test Item Value Reference Range Interpretation Comme nts HEMOGLOBIN ABG (test code = HGB/ABG) 6.2 G/DL 12.5-16.9 L [id number] 01:35:00* Test Item Value Reference Range Interpretation Comme nts HEMATOCRIT (test code = HCT/ABG) 18 % 37.5-50.7 L POC LACTIC [id number] 01:35:00* Test Item Value Reference Range Interpretation Comme nts POC LACTIC ACID (test code = POCLAC) < 0.3 mmol/l 0.9-1.7 L CBC W/AUTO [id number] 01:34:00* Test Item Value Reference Range Interpretation [...] = MDIFF) NO - XR CHEST 1 [id number] 00:00:00 [facility] : 1950 Sex: M FAX: Luci Wang [phone] [place]: St: [facility] FAX: Evon Garcia Phy [phone] -- Name: TEVIN NYE [facility] [place] : 1950 Age/S: 72/M [address] [place] [address] Blvd Unit #: [id number] Loc: [place] [address] Phys: Evon Andrew Acct: [id number] Dis Date: Status: ADM IN PHONE #: [phone] Exam Date: 03/06/2023 06 FAX #: [phone] Reason: Cardiac Surgery Post Op EXAMS: CPT CODE: [id number] XR CHEST 1 V 05104 PROCEDURE INFORMATION: Exam: XR Chest Exam date [...] signed by: Bon Spangler M.D. CC: Luci Beyer MD; Evon Andrew Technologist: RT Perla(R) Trnscrd Date/Time/By: 03/06/2023 (804) : By: [email or web address] Orig Print D/T: S: 03/06/2023 (804) PAGE 1 Signed ReportCBC W/AUTO [id number] 23:46:00* Test Item Value Reference Range Interpretation [...] c ode = MDIFF) NO BASIC METABOLIC [id number] 23:21:00* Test Item Value Reference Range Interpretation [...] code = CA) 8.8 mg/dL 8.0-10.5 N [id number] 23:21:00* Test Item Value Reference Range Interpretation Comme nts PHOSPHOROUS (test code = PHOS) 5.2 MG/DL 2.5-4.9 H [id number] 23:21:00* Test Item Value Reference Range Interpretation Comme nts MAGNESIUM (test code = MAG) 2.69 mg/dL 1.80-2.40 H POC ARTERIAL BLOOD [id number] 23:18:00* Test Item Value Reference Range Interpretation Comme nts POC ARTERIAL BLOOD GAS PH (t est code = POCPHA) 7.354 7.35-7.45 N POC ARTERIAL BLOOD GAS PCO2 (test code = KYWJND1O) 49.1 mmHg 35.0-45 H POC TCO2 ARTERIAL (test code = POCTCO2) 28.9 POC ARTERIAL BLOOD GAS PO2 ( test code = TJIGG7W) 94.7 mmHg 80-100.0 N POC HCO3 ARTERIAL (test code = BQEIIB0Q) 27.4 MMOL/L 22.0-26.0 H POC BASE EXCESS (test code = POCBEA) 1.8 MMOL/L -4.0-4.0 N POC O2 SATURATION (test code = POCO2S) 96.9 % 90-100 N ABG DELIVERY (test code = RACIEL) 4L HFNC ABG SITE (test code = SITEA) Art Line BASIC METABOLIC [id number] 23:18:00* Test Item Value Reference Range Interpretation [...] = POCGLU) 116 MG/DL 70-110 H HEMOGLOBIN [id number] 23:18:00* Test Item Value Reference Range Interpretation Comme nts HEMOGLOBIN ABG (test code = HGB/ABG) 6.8 G/DL 12.5-16.9 L [id number] 23:18:00* Test Item Value Reference Range Interpretation Comme nts HEMATOCRIT (test code = HCT/ABG) 20 % 37.5-50.7 L POC LACTIC [id number] 23:18:00* Test Item Value Reference Range Interpretation Comme nts POC LACTIC ACID (test code = POCLAC) 0.7 mmol/l 0.9-1.7 L POC ARTERIAL BLOOD [id number] 22:10:00* Test Item Value Reference Range Interpretation Comme nts POC ARTERIAL BLOOD GAS PH (t est code = POCPHA) 7.341 7.35-7.45 L POC ARTERIAL BLOOD GAS PCO2 (test code = GAAATT5I) 54.8 mmHg 35.0-45 HH POC TCO2 ARTERIAL (test code = POCTCO2) 31.3 POC ARTERIAL BLOOD GAS PO2 ( test code = BTOXO3F) 91.2 mmHg 80-100.0 N POC HCO3 ARTERIAL (test code = FHUISY3J) 29.6 MMOL/L 22.0-26.0 HH POC BASE EXCESS (test code = POCBEA) 3.9 MMOL/L -4.0-4.0 N POC O2 SATURATION (test code = POCO2S) 96.3 % 90-100 N BASIC METABOLIC [id number] 22:10:00* Test Item Value Reference Range Interpretation [...] = POCGLU) 104 MG/DL 70-110 N HEMOGLOBIN [id number] 22:10:00* Test Item Value Reference Range Interpretation Comme nts HEMOGLOBIN ABG (test code = HGB/ABG) 7.8 G/DL 12.5-16.9 L [id number] 22:10:00* Test Item Value Reference Range Interpretation Comme nts HEMATOCRIT (test code = HCT/ABG) 23 % 37.5-50.7 L POC LACTIC [id number] 22:10:00* Test Item Value Reference Range Interpretation Comme nts POC LACTIC ACID (test code = POCLAC) 0.4 mmol/l 0.9-1.7 L GLUCOSE [id number] 20:35:00* Test Item Value Reference Range Interpretation Comme nts GLUCOSE BEDSIDE (test code = GLUBED) 124 MG/DL 70-110 H Performed by cer tified laser machine operator at [facility] POC ARTERIAL BLOOD [id number] 20:23:00* Test Item Value Reference Range Interpretation Comme nts POC ARTERIAL BLOOD GAS PH (t est code = POCPHA) 7.342 7.35-7.45 L POC ARTERIAL BLOOD GAS PCO2 (test code = GBKZTN3G) 53.0 mmHg 35.0-45 HH POC TCO2 ARTERIAL (test code = POCTCO2) 30.4 POC ARTERIAL BLOOD GAS PO2 ( test code = OLSMI6S) 202.6 mmHg 80-100.0 HH POC HCO3 ARTERIAL (test code = JBYHGO0J) 28.7 MMOL/L 22.0-26.0 HH POC BASE EXCESS (test code = POCBEA) 3.0 MMOL/L -4.0-4.0 N POC O2 SATURATION (test code = POCO2S) 99.7 % 90-100 N FIO2 (test code = FIO2A) 60 % PaO2/FiO2 (test code = GBN4JZC3) 337.66 mm/Hg ABG DELIVERY (test code = RACIEL) AVAPS ABG SITE (test code = SITEA) Art Line BASIC METABOLIC [id number] 20:23:00* Test Item Value Reference Range Interpretation [...] = POCGLU) 116 MG/DL 70-110 H HEMOGLOBIN [id number] 20:23:00* Test Item Value Reference Range Interpretation Comme nts HEMOGLOBIN ABG (test code = HGB/ABG) 7.6 G/DL 12.5-16.9 L [id number] 20:23:00* Test Item Value Reference Range Interpretation Comme nts HEMATOCRIT (test code = HCT/ABG) 22 % 37.5-50.7 L POC LACTIC [id number] 20:23:00* Test Item Value Reference Range Interpretation Comme nts POC LACTIC ACID (test code = POCLAC) < 0.3 mmol/l 0.9-1.7 L UR SODIUM [id number] 19:27:00* Test Item Value Reference Range Interpretation Comme nts UR SODIUM RANDOM (test code = JERSON) 14 MEQ/L The Reference Range and Method Performance specificationshave not been established for this fluid. The test resultshould be correlated into the clinical context forinterpretation. UR CREATININE [id number] 19:27:00* Test Item Value Reference Range Interpretation Comme nts UR CREATININE RANDOM (test code = CREATU) 53.7 mg/dL The Reference Ra nge and Method Performance specificationshave not been established for this fluid. The test resultshould be correlated into the clinical context forinterpretation. POC ARTERIAL BLOOD [id number] 18:16:00* Test Item Value Reference Range Interpretation Comme nts POC ARTERIAL BLOOD GAS PH (t est code = POCPHA) 7.339 7.35-7.45 L POC ARTERIAL BLOOD GAS PCO2 (test code = QXHLYS6T) 55.2 mmHg 35.0-45 HH POC TCO2 ARTERIAL (test code = POCTCO2) 31.4 POC ARTERIAL BLOOD GAS PO2 ( test code = CMOTB4D) 85.1 mmHg 80-100.0 N POC HCO3 ARTERIAL (test code = DNJEGM6H) 29.7 MMOL/L 22.0-26.0 HH POC BASE EXCESS (test code = POCBEA) 4.0 MMOL/L -4.0-4.0 N POC O2 SATURATION (test code = POCO2S) 95.5 % 90-100 N FIO2 (test code = FIO2A) 60.0 % PaO2/FiO2 (test code = CAW6WWH4) 141.80 mm/Hg ABG DELIVERY (test code = RACIEL) BiPAP ABG SITE (test code = SITEA) Art Line SHAYLA'S TEST (test code = ALLENS) N/A BASIC METABOLIC [id number] 18:16:00* Test Item Value Reference Range Interpretation [...] = POCGLU) 186 MG/DL 70-110 H HEMOGLOBIN [id number] 18:16:00* Test Item Value Reference Range Interpretation Comme nts HEMOGLOBIN ABG (test code = HGB/ABG) 8.3 G/DL 12.5-16.9 L [id number] 18:16:00* Test Item Value Reference Range Interpretation Comme nts HEMATOCRIT (test code = HCT/ABG) 24 % 37.5-50.7 L POC LACTIC [id number] 18:16:00* Test Item Value Reference Range Interpretation Comme nts POC LACTIC ACID (test code = POCLAC) 0.8 mmol/l 0.9-1.7 L BASIC METABOLIC [id number] 17:33:00* Test Item Value Reference Range Interpretation [...] code = CA) 9.0 mg/dL 8.0-10.5 N [id number] 17:33:00* Test Item Value Reference Range Interpretation Comme nts MAGNESIUM (test code = MAG) 2.58 mg/dL 1.80-2.40 H CALCIUM [id number] 17:33:00* Test Item Value Reference Range Interpretation Comme nts CALCIUM IONIZED (test code = BIBIANA) 1.11 MMOL/L 1.09-1.30 N GLUCOSE [id number] 16:08:00* Test Item Value Reference Range Interpretation Comme nts GLUCOSE BEDSIDE (test code = GLUBED) 210 MG/DL 70-110 H Performed by cer yun laser machine operator at [facility] POC ARTERIAL BLOOD [id number] 15:47:00* Test Item Value Reference Range Interpretation Comme nts POC ARTERIAL BLOOD GAS PH (t est code = POCPHA) 7.275 7.35-7.45 LL POC ARTERIAL BLOOD GAS PCO2 (test code = WGQLFS9X) 62.7 mmHg 35.0-45 HH POC TCO2 ARTERIAL (test code = POCTCO2) 31.0 POC ARTERIAL BLOOD GAS PO2 ( test code = ZTSTG6W) 110.1 mmHg 80-100.0 H POC HCO3 ARTERIAL (test code = ORPUON0A) 29.1 MMOL/L 22.0-26.0 HH POC BASE EXCESS (test code = POCBEA) 2.3 MMOL/L -4.0-4.0 N POC O2 SATURATION (test code = POCO2S) 97.4 % 90-100 N ABG DELIVERY (test code = RACIEL) BiPAP ABG SITE (test code = SITEA) Art Line BASIC METABOLIC [id number] 15:47:00* Test Item Value Reference Range Interpretation [...] = POCGLU) 196 MG/DL 70-110 H HEMOGLOBIN [id number] 15:47:00* Test Item Value Reference Range Interpretation Comme nts HEMOGLOBIN ABG (test code = HGB/ABG) 8.4 G/DL 12.5-16.9 L [id number] 15:47:00* Test Item Value Reference Range Interpretation Comme nts HEMATOCRIT (test code = HCT/ABG) 25 % 37.5-50.7 L POC LACTIC [id number] 15:47:00* Test Item Value Reference Range Interpretation Comme nts POC LACTIC ACID (test code = POCLAC) 0.5 mmol/l 0.9-1.7 L POC ARTERIAL BLOOD [id number] 14:48:00* Test Item Value Reference Range Interpretation Comme nts POC ARTERIAL BLOOD GAS PH (t est code = POCPHA) 7.317 7.35-7.45 L POC ARTERIAL BLOOD GAS PCO2 (test code = ARGLQZ5V) 55.6 mmHg 35.0-45 HH POC TCO2 ARTERIAL (test code = POCTCO2) 30.1 POC ARTERIAL BLOOD GAS PO2 ( test code = SKDTT0T) 185.9 mmHg 80-100.0 H POC HCO3 ARTERIAL (test code = SFCIIK2J) 28.4 MMOL/L 22.0-26.0 HH POC BASE EXCESS (test code = POCBEA) 2.3 MMOL/L -4.0-4.0 N POC O2 SATURATION (test code = POCO2S) 99.5 % 90-100 N FIO2 (test code = FIO2A) 40 % PaO2/FiO2 (test code = OFS5GRY5) 464.75 mm/Hg ABG DELIVERY (test code = ARCIEL) BiPAP ABG VENT RESP RATE (test cod [...] (test code = ALLENS) N/A BASIC METABOLIC [id number] 14:48:00* Test Item Value Reference Range Interpretation [...] = POCGLU) 223 MG/DL 70-110 H HEMOGLOBIN [id number] 14:48:00* Test Item Value Reference Range Interpretation Comme nts HEMOGLOBIN ABG (test code = HGB/ABG) 7.9 G/DL 12.5-16.9 L [id number] 14:48:00* Test Item Value Reference Range Interpretation Comme nts HEMATOCRIT (test code = HCT/ABG) 23 % 37.5-50.7 L POC LACTIC [id number] 14:48:00* Test Item Value Reference Range Interpretation Comme nts POC LACTIC ACID (test code = POCLAC) 0.8 mmol/l 0.9-1.7 L CBC W/AUTO [id number] 11:05:00* Test Item Value Reference Range Interpretation [...] ode = MDIFF) NO POC ARTERIAL BLOOD [id number] 10:51:00* Test Item Value Reference Range Interpretation Comme nts POC ARTERIAL BLOOD GAS PH (t est code = POCPHA) 7.327 7.35-7.45 L POC ARTERIAL BLOOD GAS PCO2 (test code = [id number]) 63.4 mmHg 35.0-45 HH POC TCO2 ARTERIAL (test code = POCTCO2) 35.2 POC ARTERIAL BLOOD GAS PO2 ( test code = YBKUK6F) 108.3 mmHg 80-100.0 H POC HCO3 ARTERIAL (test code = VKRSQK7J) 33.2 MMOL/L 22.0-26.0 HH POC BASE EXCESS (test code = POCBEA) 7.2 MMOL/L -4.0-4.0 H POC O2 SATURATION (test code = POCO2S) 97.6 % 90-100 N FIO2 (test code = FIO2A) 30 % PaO2/FiO2 (test code = [id number]) 361.00 mm/Hg ABG DELIVERY (test code = RACIEL) BiPAP ABG VENT RESP RATE (test cod e = RRA) 24 /MIN ABG PEEP (test code = PEEPA) 7 cmH2O ABG PRESSURE SUPPORT (test c ode = PSABG) 15 cmH2O ABG TEMPERATURE (test code = TEMPA) 98.6 F ABG SITE (test code = SITEA) Art Line SHAYLA'S TEST (test code = ALLENS) N/A BASIC METABOLIC [id number] 10:51:00* Test Item Value Reference Range Interpretation [...] = POCGLU) 88 MG/DL 70-110 N HEMOGLOBIN [id number] 10:51:00* Test Item Value Reference Range Interpretation Comme nts HEMOGLOBIN ABG (test code = HGB/ABG) 8.0 G/DL 12.5-16.9 L [id number] 10:51:00* Test Item Value Reference Range Interpretation Comme nts HEMATOCRIT (test code = HCT/ABG) 24 % 37.5-50.7 L POC LACTIC [id number] 10:51:00* Test Item Value Reference Range Interpretation Comme nts POC LACTIC ACID (test code = POCLAC) 0.5 mmol/l 0.9-1.7 L GLUCOSE [id number] 10:17:00* Test Item Value Reference Range Interpretation Comme nts GLUCOSE BEDSIDE (test code = GLUBED) 110 MG/DL 70-110 N Performed by cer yun laser machine operator at [facility] BASIC METABOLIC [id number] 08:28:00* Test Item Value Reference Range Interpretation [...] code = CA) 8.7 mg/dL 8.0-10.5 N [id number] 08:28:00* Test Item Value Reference Range Interpretation Comme nts MAGNESIUM (test code = MAG) 2.35 mg/dL 1.80-2.40 N CALCIUM [id number] 08:28:00* Test Item Value Reference Range Interpretation Comme nts CALCIUM IONIZED (test code = BIBIANA) 1.14 MMOL/L 1.09-1.30 N POC ARTERIAL BLOOD [id number] 07:46:00* Test Item Value Reference Range Interpretation Comme nts POC ARTERIAL BLOOD GAS PH (t est code = POCPHA) 7.343 7.35-7.45 L POC ARTERIAL BLOOD GAS PCO2 (test code = ZIGKLO4R) 58.9 mmHg 35.0-45 HH POC TCO2 ARTERIAL (test code = POCTCO2) 33.8 POC ARTERIAL BLOOD GAS PO2 ( test code = BMSWP1B) 82.1 mmHg 80-100.0 N POC HCO3 ARTERIAL (test code = HOLXSQ7I) 32.0 MMOL/L 22.0-26.0 HH POC BASE EXCESS (test code = POCBEA) 6.3 MMOL/L -4.0-4.0 H POC O2 SATURATION (test code = POCO2S) 95.1 % 90-100 N FIO2 (test code = FIO2A) 30 % PaO2/FiO2 (test code = LQU8MQE4) 273.66 mm/Hg ABG DELIVERY (test code = RACIEL) Bagging ABG VENT MODE (test code = MODEA) CPAP/PS ABG TEMPERATURE (test code = TEMPA) 98.3 F ABG SITE (test code = SITEA) Art Line SHAYLA'S TEST (test code = ALLENS) N/A BASIC METABOLIC [id number] 07:46:00* Test Item Value Reference Range Interpretation [...] = POCGLU) 113 MG/DL 70-110 H HEMOGLOBIN [id number] 07:46:00* Test Item Value Reference Range Interpretation Comme nts HEMOGLOBIN ABG (test code = HGB/ABG) 7.8 G/DL 12.5-16.9 L [id number] 07:46:00* Test Item Value Reference Range Interpretation Comme nts HEMATOCRIT (test code = HCT/ABG) 23 % 37.5-50.7 L POC LACTIC [id number] 07:46:00* Test Item Value Reference Range Interpretation Comme nts POC LACTIC ACID (test code = POCLAC) 0.9 mmol/l 0.9-1.7 N POC ARTERIAL BLOOD [id number] 06:42:00* Test Item Value Reference Range Interpretation Comme nts POC ARTERIAL BLOOD GAS PH (t est code = POCPHA) 7.322 7.35-7.45 L POC ARTERIAL BLOOD GAS PCO2 (test code = MPWZKW6S) 58.5 mmHg 35.0-45 HH POC TCO2 ARTERIAL (test code = POCTCO2) 32.1 POC ARTERIAL BLOOD GAS PO2 ( test code = WCSUT2V) 105.9 mmHg 80-100.0 H POC HCO3 ARTERIAL (test code = BHIMUS1P) 30.3 MMOL/L 22.0-26.0 HH POC BASE EXCESS (test code = POCBEA) 4.2 MMOL/L -4.0-4.0 H POC O2 SATURATION (test code = POCO2S) 97.4 % 90-100 N FIO2 (test code = FIO2A) 35 % PaO2/FiO2 (test code = IEJ0KRC7) 302.57 mm/Hg ABG DELIVERY (test code = RACIEL) BiPAP ABG VENT MODE (test code = MODEA) 12/5 ABG SITE (test code = SITEA) Art Line BASIC METABOLIC [id number] 06:42:00* Test Item Value Reference Range Interpretation [...] = POCGLU) 126 MG/DL 70-110 H HEMOGLOBIN [id number] 06:42:00* Test Item Value Reference Range Interpretation Comme nts HEMOGLOBIN ABG (test code = HGB/ABG) 7.1 G/DL 12.5-16.9 L [id number] 06:42:00* Test Item Value Reference Range Interpretation Comme nts HEMATOCRIT (test code = HCT/ABG) 21 % 37.5-50.7 L POC LACTIC [id number] 06:42:00* Test Item Value Reference Range Interpretation Comme nts POC LACTIC ACID (test code = POCLAC) 1.0 mmol/l 0.9-1.7 N POC ARTERIAL BLOOD [id number] 05:35:00* Test Item Value Reference Range Interpretation Comme nts POC ARTERIAL BLOOD GAS PH (t est code = POCPHA) 7.259 7.35-7.45 LL POC ARTERIAL BLOOD GAS PCO2 (test code = EBMQCI8K) 66.1 mmHg 35.0-45 HH POC TCO2 ARTERIAL (test code = POCTCO2) 31.7 POC ARTERIAL BLOOD GAS PO2 ( test code = USGKV1G) 106.5 mmHg 80-100.0 H POC HCO3 ARTERIAL (test code = ABTYNX9U) 29.6 MMOL/L 22.0-26.0 HH POC BASE EXCESS (test code = POCBEA) 2.5 MMOL/L -4.0-4.0 N POC O2 SATURATION (test code = POCO2S) 96.9 % 90-100 N FIO2 (test code = FIO2A) 40 % PaO2/FiO2 (test code = OYT2SSO9) 266.25 mm/Hg ABG DELIVERY (test code = RACIEL) BiPAP ABG VENT MODE (test code = MODEA) 12/5 ABG SITE (test code = SITEA) Art Line BASIC METABOLIC [id number] 05:35:00* Test Item Value Reference Range Interpretation [...] = POCGLU) 146 MG/DL 70-110 H HEMOGLOBIN [id number] 05:35:00* Test Item Value Reference Range Interpretation Comme nts HEMOGLOBIN ABG (test code = HGB/ABG) 7.4 G/DL 12.5-16.9 L [id number] 05:35:00* Test Item Value Reference Range Interpretation Comme nts HEMATOCRIT (test code = HCT/ABG) 22 % 37.5-50.7 L POC LACTIC [id number] 05:35:00* Test Item Value Reference Range Interpretation Comme nts POC LACTIC ACID (test code = POCLAC) 1.7 mmol/l 0.9-1.7 N POC ARTERIAL BLOOD [id number] 04:59:00* Test Item Value Reference Range Interpretation Comme nts POC ARTERIAL BLOOD GAS PH (t est code = POCPHA) 7.218 7.35-7.45 LL POC ARTERIAL BLOOD GAS PCO2 (test code = JGJFKK9A) 77.2 mmHg 35.0-45 HH POC TCO2 ARTERIAL (test code = POCTCO2) 33.8 POC ARTERIAL BLOOD GAS PO2 ( test code = LECMP3F) 103.7 mmHg 80-100.0 H POC HCO3 ARTERIAL (test code = UDCDZU8G) 31.5 MMOL/L 22.0-26.0 HH POC BASE EXCESS (test code = POCBEA) 3.7 MMOL/L -4.0-4.0 N POC O2 SATURATION (test code = POCO2S) 96.2 % 90-100 N ABG VENT MODE (test code = MODEA) 4L HFNC ABG SITE (test code = SITEA) Art Line BASIC METABOLIC [id number] 04:59:00* Test Item Value Reference Range Interpretation [...] = POCGLU) 126 MG/DL 70-110 H HEMOGLOBIN [id number] 04:59:00* Test Item Value Reference Range Interpretation Comme nts HEMOGLOBIN ABG (test code = HGB/ABG) 8.0 G/DL 12.5-16.9 L [id number] 04:59:00* Test Item Value Reference Range Interpretation Comme nts HEMATOCRIT (test code = HCT/ABG) 24 % 37.5-50.7 L POC LACTIC [id number] 04:59:00* Test Item Value Reference Range Interpretation Comme nts POC LACTIC ACID (test code = POCLAC) 2.0 mmol/l 0.9-1.7 H BASIC METABOLIC [id number] 02:47:00* Test Item Value Reference Range Interpretation [...] mg/dL 8.0-10.5 N COMMENTS: POD #1HEPATIC FUNCTION [id number] 02:47:00* Test Item Value Reference Range Interpretation [...] ALKP) 26 IUnit/L 20-125 N COMMENTS: POD #[id number] 02:47:00* Test Item Value Reference Range Interpretation Comme nts MAGNESIUM (test code = MAG) 2.66 mg/dL 1.80-2.40 H COMMENTS: POD #1LACTIC ACID 2ND [id number] 02:43:00* Test Item Value Reference Range Interpretation Comme nts LACTIC ACID 2ND REPEAT (test code = LACT2) 2.4 mmol/L 0.4-1.9 H CBC W/AUTO [id number] 02:21:00* Test Item Value Reference Range Interpretation [...] ode = MDIFF) NO POC ARTERIAL BLOOD [id number] 02:16:00* Test Item Value Reference Range Interpretation Comme nts POC ARTERIAL BLOOD GAS PH (t est code = POCPHA) 7.312 7.35-7.45 L POC ARTERIAL BLOOD GAS PCO2 (test code = KJSCYH9F) 65.1 mmHg 35.0-45 HH POC TCO2 ARTERIAL (test code = POCTCO2) 35.0 POC ARTERIAL BLOOD GAS PO2 ( test code = YEOPP2X) 97.2 mmHg 80-100.0 N POC HCO3 ARTERIAL (test code = RHLXLK0Q) 33.0 MMOL/L 22.0-26.0 HH POC BASE EXCESS (test code = POCBEA) 6.7 MMOL/L -4.0-4.0 H POC O2 SATURATION (test code = POCO2S) 96.5 % 90-100 N ABG DELIVERY (test code = RACIEL) 4L HFNC ABG SITE (test code = SITEA) Art Line BASIC METABOLIC [id number] 02:16:00* Test Item Value Reference Range Interpretation [...] = POCGLU) 121 MG/DL 70-110 H HEMOGLOBIN [id number] 02:16:00* Test Item Value Reference Range Interpretation Comme nts HEMOGLOBIN ABG (test code = HGB/ABG) 7.2 G/DL 12.5-16.9 L [id number] 02:16:00* Test Item Value Reference Range Interpretation Comme nts HEMATOCRIT (test code = HCT/ABG) 21 % 37.5-50.7 L POC LACTIC [id number] 02:16:00* Test Item Value Reference Range Interpretation Comme nts POC LACTIC ACID (test code = POCLAC) 1.8 mmol/l 0.9-1.7 H LACTIC ACID [id number] 00:31:00* Test Item Value Reference Range Interpretation Comme nts LACTIC ACID REPEAT (test cod e = LACTR) 4.2 mmol/l 0.4-1.9 HH - XR ABDOMEN 1V (KUB)2023-03-05 00:00:00 [facility] 1950 Sex: M FAX: Luci Wang [phone] [place]: St: ADM FAX: Emery Sheehan Jr [phone] ---- Name: TEVIN NYE [facility] : 1950 Age/S: 72/M [address] [place] [address] Unit #: [id number] Loc: [address] [address] Phys: Emery Sheehan Jr, MD Acct: [id number] Dis Date: Status: ADM IN PHONE #: [phone] Exam Date: 03/05/2023 08 FAX #: [phone] Reason: ABD PAIN EXAMS: CPT CODE: [id number] XR ABDOMEN 1V (KUB) [id number] PROCEDURE INFORMATION: Exam: XR Abdomen Exam date and time: 03/05/2023 7:47AM Age: 72 years old Clinical indication: Abdominal [...] signed by: Davi Walton M.D. CC: Luci Beyer MD; Emery Sheehan Jr, MD Technologist: RT Thakur (R) Trnlora Date/Time/By: 03/05/2023 (0851) : By: [email or web address] Orig Print D/T: S: 03/05/2023 (0835) PAGE 1 Signed Report- XR CHEST 1 [id number] 00:00:00 [facility] 1950 Sex: M FAX: Luci Wang [phone] [place]: St: ADM FAX: Evon Garcia [facility] [phone] - Name: TIGRE NYE [place] : 1950 Age/S: 72/M [address] [place] [address] Unit #: [id number] Loc: G.[address] [place] [address] Phys: Evon Andrew Acct: [id number] Dis Date: Status: ADM IN PHONE #: [phone] Exam Date: 03/05/2023 0501 FAX #: [phone] Reason: Cardiac Surgery Post Op EXAMS: CPT CODE: [id number] XR CHEST 1 V 43297 PROCEDURE INFORMATION: Exam: XR Chest Exam date [...] 2. Lines and tubes, as above. at 08 Reported and signed by: Margarito Borges M.D. CC: Luci Beyer MD; Evon Andrew Technologist: RT Lelia(Karuna) Trnscrd Date/Time/By: 03/05/2023 (825) : By: BuckAM01 Orig Print D/T: S: 03/05/2023 (7141) PAGE 1 [facility] [id number] 23:12:00 * Test Item Value Reference Range Interpretation Comme nts POC ARTERIAL BLOOD GAS PH (t est code = POCPHA) 7.328 7.35-7.45 L POC ARTERIAL BLOOD GAS PCO2 (test code = EIHBEY7D) 53.9 mmHg 35.0-45 HH POC TCO2 ARTERIAL (test code = POCTCO2) 30.2 POC ARTERIAL BLOOD GAS PO2 ( test code = XPAOD9M) 72.6 mmHg 80-100.0 L POC HCO3 ARTERIAL (test code = BGNGOL6N) 28.5 MMOL/L 22.0-26.0 HH POC BASE EXCESS (test code = POCBEA) 2.4 MMOL/L -4.0-4.0 N POC O2 SATURATION (test code = POCO2S) 93.3 % 90-100 N ABG DELIVERY (test code = RACIEL) 4L HFNC ABG TEMPERATURE (test code = TEMPA) 97.7 F ABG SITE (test code = SITEA) Art Line [id number] 23:12:00* Test Item Value Reference Range Interpretation Comme nts SODIUM (test code = NA/ABG) 148 mmol/L 134-147 H [id number] 23:12:00* Test Item Value Reference Range Interpretation Comme nts POTASSIUM (test code = K/ABG) 3.9 mmol/L 3.4-5.0 N [id number] 23:12:00* Test Item Value Reference Range Interpretation Comme nts CHLORIDE (test code = CL/ABG) 108 mmol/L 100-108 N CREATININE [id number] 23:12:00* Test Item Value Reference Range Interpretation Comme nts CREATININE ABG (test code = CREAABG) 1.6 mg/dL 0.8-1.3 H HEMOGLOBIN [id number] 23:12:00* Test Item Value Reference Range Interpretation Comme nts HEMOGLOBIN ABG (test code = HGB/ABG) 7.4 G/DL 12.5-16.9 L [id number] 23:12:00* Test Item Value Reference Range Interpretation Comme nts HEMATOCRIT (test code = HCT/ABG) 22 % 37.5-50.7 L POC LACTIC [id number] 23:12:00* Test Item Value Reference Range Interpretation Comme nts POC LACTIC ACID (test code = POCLAC) 4.3 mmol/l 0.9-1.7 HH POC [id number] 23:12:00* Test Item Value Reference Range Interpretation Comme nts POC GLUCOSE (test code = POCGLU) 178 MG/DL 70-110 H CBC W/AUTO [id number] 22:39:00* Test Item Value Reference Range Interpretation [...] (test c ode = MDIFF) NO PLT [id number] 22:39:00* Test Item Value Reference Range Interpretation Comme nts PLATELET ESTIMATE (test code = PLTEST) 140-175 THOUSAND ADEQUATE PLATELET MORPHOLOGY (test code = PLTMORPH) NORMAL BASIC METABOLIC [id number] 22:10:00* Test Item Value Reference Range Interpretation [...] CA) 7.6 mg/dL 8.0-10.5 L HEPATIC FUNCTION [id number] 22:10:00* Test Item Value Reference Range Interpretation [...] cod e = BILIND) 0.30 MG/DL CALCIUM [id number] 22:10:00* Test Item Value Reference Range Interpretation Comme nts CALCIUM IONIZED (test code = BIBIANA) 0.95 MMOL/L 1.09-1.30 L LACTIC [id number] 22:03:00* Test Item Value Reference Range Interpretation Comme nts LACTIC ACID (test code = LACT) 8.6 mmol/L 0.4-1.9 HH Critical [place] [address]/04/23Nurse read back result and tech confirmed it's correct? Y POC ARTERIAL BLOOD [id number] 21:10:00* Test Item Value Reference Range Interpretation Comme nts POC ARTERIAL BLOOD GAS PH (t est code = POCPHA) 7.337 7.35-7.45 L POC ARTERIAL BLOOD GAS PCO2 (test code = PVSNZV4F) 49.8 mmHg 35.0-45 H POC TCO2 ARTERIAL (test code = POCTCO2) 28.7 POC ARTERIAL BLOOD GAS PO2 ( test code = NDWLH8F) 80.9 mmHg 80-100.0 N POC HCO3 ARTERIAL (test code = EBJCUT5F) 27.1 MMOL/L 22.0-26.0 H POC BASE EXCESS (test code = POCBEA) 1.0 MMOL/L -4.0-4.0 N POC O2 SATURATION (test code = POCO2S) 95.7 % 90-100 N FIO2 (test code = FIO2A) 40 % PaO2/FiO2 (test code = ONX8WTO8) 202.25 mm/Hg ABG DELIVERY (test code = RACIEL) Adult Vent ABG VENT MODE (test code = MODEA) SPONT ABG PEEP (test code = PEEPA) 5 cmH2O ABG PRESSURE SUPPORT (test c ode = PSABG) 20 cmH2O ABG TEMPERATURE (test code = TEMPA) 96.1 F ABG SITE (test code = SITEA) Art Line BASIC METABOLIC [id number] 21:10:00* Test Item Value Reference Range Interpretation [...] = POCGLU) 214 MG/DL 70-110 H HEMOGLOBIN [id number] 21:10:00* Test Item Value Reference Range Interpretation Comme nts HEMOGLOBIN ABG (test code = HGB/ABG) 7.9 G/DL 12.5-16.9 L [id number] 21:10:00* Test Item Value Reference Range Interpretation Comme nts HEMATOCRIT (test code = HCT/ABG) 23 % 37.5-50.7 L POC LACTIC [id number] 21:10:00* Test Item Value Reference Range Interpretation Comme nts POC LACTIC ACID (test code = POCLAC) 6.5 mmol/l 0.9-1.7 HH POC ARTERIAL BLOOD [id number] 20:29:00* Test Item Value Reference Range Interpretation Comme nts POC ARTERIAL BLOOD GAS PH (t est code = POCPHA) 7.342 7.35-7.45 L POC ARTERIAL BLOOD GAS PCO2 (test code = DCUERW7J) 50.2 mmHg 35.0-45 HH POC TCO2 ARTERIAL (test code = POCTCO2) 28.7 POC ARTERIAL BLOOD GAS PO2 ( test code = VRJDO2Q) 382.6 mmHg 80-100.0 HH POC HCO3 ARTERIAL (test code = SOBYAZ2S) 27.2 MMOL/L 22.0-26.0 H POC BASE EXCESS (test code = POCBEA) 1.5 MMOL/L -4.0-4.0 N POC O2 SATURATION (test code = POCO2S) 99.9 % 90-100 N FIO2 (test code = FIO2A) 100 % PaO2/FiO2 (test code = TGC9FZQ2) 382.60 mm/Hg ABG VENT MODE (test code = MODEA) AC ABG SITE (test code = SITEA) Art Line BASIC METABOLIC [id number] 20:29:00* Test Item Value Reference Range Interpretation [...] = POCGLU) 219 MG/DL 70-110 H HEMOGLOBIN [id number] 20:29:00* Test Item Value Reference Range Interpretation Comme nts HEMOGLOBIN ABG (test code = HGB/ABG) 7.7 G/DL 12.5-16.9 L [id number] 20:29:00* Test Item Value Reference Range Interpretation Comme nts HEMATOCRIT (test code = HCT/ABG) 23 % 37.5-50.7 L POC LACTIC [id number] 20:29:00* Test Item Value Reference Range Interpretation Comme nts POC LACTIC ACID (test code = POCLAC) 5.0 mmol/l 0.9-1.7 HH POC ARTERIAL BLOOD [id number] 19:38:00* Test Item Value Reference Range Interpretation Comme nts POC ARTERIAL BLOOD GAS PH (t est code = POCPHA) 7.204 7.35-7.45 LL POC ARTERIAL BLOOD GAS PCO2 (test code = WTNNNL6N) 50.2 mmHg 35.0-45 HH POC TCO2 ARTERIAL (test code = POCTCO2) 21.3 POC ARTERIAL BLOOD GAS PO2 ( test code = TRFBR6L) 125.4 mmHg 80-100.0 H POC HCO3 ARTERIAL (test code = MNJYLM2Z) 19.8 MMOL/L 22.0-26.0 L POC BASE EXCESS (test code = POCBEA) -8.2 MMOL/L -4.0-4.0 L POC O2 SATURATION (test code = POCO2S) 97.9 % 90-100 N FIO2 (test code = FIO2A) 40 % PaO2/FiO2 (test code = GJZ6DAK6) 313.50 mm/Hg ABG DELIVERY (test code = RACIEL) Adult Vent ABG VENT RESP RATE (test cod e = RRA) 18 /MIN ABG TIDAL VOLUME (test code = TVA) 480 ml ABG PEEP (test code = PEEPA) 5 cmH2O ABG SITE (test code = SITEA) Art Line BASIC METABOLIC [id number] 19:38:00* Test Item Value Reference Range Interpretation [...] = POCGLU) 223 MG/DL 70-110 H HEMOGLOBIN [id number] 19:38:00* Test Item Value Reference Range Interpretation Comme nts HEMOGLOBIN ABG (test code = HGB/ABG) 7.8 G/DL 12.5-16.9 L [id number] 19:38:00* Test Item Value Reference Range Interpretation Comme nts HEMATOCRIT (test code = HCT/ABG) 23 % 37.5-50.7 L POC LACTIC [id number] 19:38:00* Test Item Value Reference Range Interpretation Comme nts POC LACTIC ACID (test code = POCLAC) 3.9 mmol/l 0.9-1.7 H BASIC METABOLIC [id number] 18:27:00* Test Item Value Reference Range Interpretation [...] mg/dL 8.0-10.5 N COMMENTS: On arrivalComment: On [id number] 18:27:00* Test Item Value Reference Range Interpretation Comme nts MAGNESIUM (test code = MAG) 2.98 mg/dL 1.80-2.40 H COMMENTS: On arrivalComment: On arrivalPROTHROMBIN [id number] 18:19:00* Test Item Value Reference Range Interpretation [...] prevent recurrent infarct). COMMENTS: On arrivalTHROMBOPLASTIN TIME [id number] 18:19:00* Test Item Value Reference Range Interpretation Comme nts THROMBOPLASTIN TIME PARTIAL (test code = PTT) 30.8 Seconds 25.0-39.5 Therapeutic Rang e: 50.4 - 88.3 Seconds Effective 12/22/2018 COMMENTS: On arrivalCBC W/AUTO [id number] 18:18:00* Test Item Value Reference Range Interpretation [...] c ode = MDIFF) NO COMMENTS: [facility] [id number] 18:02:00* Test Item Value Reference Range Interpretation Comme nts POC ARTERIAL BLOOD GAS PH (t est code = POCPHA) 7.280 7.35-7.45 LL POC ARTERIAL BLOOD GAS PCO2 (test code = YRBJRQ4X) 43.0 mmHg 35.0-45 N POC TCO2 ARTERIAL (test code = POCTCO2) 21.5 POC ARTERIAL BLOOD GAS PO2 ( test code = VYUCN6P) 175.5 mmHg 80-100.0 H POC HCO3 ARTERIAL (test code = RWTXBW0Z) 20.2 MMOL/L 22.0-26.0 L POC BASE EXCESS (test code = POCBEA) -6.5 MMOL/L -4.0-4.0 L POC O2 SATURATION (test code = POCO2S) 99.4 % 90-100 N FIO2 (test code = FIO2A) 50 % PaO2/FiO2 (test code = NTJ9HEE8) 351.00 mm/Hg ABG DELIVERY (test code = RACIEL) Adult Vent ABG VENT MODE (test code = MODEA) AC ABG VENT RESP RATE (test cod e = RRA) 18 /MIN ABG TIDAL VOLUME (test code = TVA) 480 ml ABG PEEP (test code = PEEPA) 5 cmH2O ABG SITE (test code = SITEA) Art Line SHAYLA'S TEST (test code = ALLENS) N/A BASIC METABOLIC [id number] 18:02:00* Test Item Value Reference Range Interpretation [...] = POCGLU) 230 MG/DL 70-110 H HEMOGLOBIN [id number] 18:02:00* Test Item Value Reference Range Interpretation Comme nts HEMOGLOBIN ABG (test code = HGB/ABG) 6.9 G/DL 12.5-16.9 L [id number] 18:02:00* Test Item Value Reference Range Interpretation Comme nts HEMATOCRIT (test code = HCT/ABG) 20 % 37.5-50.7 L POC ARTERIAL BLOOD [id number] 17:38:00* Test Item Value Reference Range Interpretation Comme nts POC ARTERIAL BLOOD GAS PH (t est code = POCPHA) 7.323 7.35-7.45 L POC ARTERIAL BLOOD GAS PCO2 (test code = JLTOIO0K) 41.3 mmHg 35.0-45 N POC TCO2 ARTERIAL (test code = POCTCO2) 22.7 POC ARTERIAL BLOOD GAS PO2 ( test code = HCAJI1F) 402.1 mmHg 80-100.0 HH POC HCO3 ARTERIAL (test code = QZLCXT6N) 21.4 MMOL/L 22.0-26.0 L POC BASE EXCESS (test code = POCBEA) -4.4 MMOL/L -4.0-4.0 L POC O2 SATURATION (test code = POCO2S) 100.0 % 90-100 N BASIC METABOLIC [id number] 17:38:00* Test Item Value Reference Range Interpretation [...] = POCGLU) 196 MG/DL 70-110 H HEMOGLOBIN [id number] 17:38:00* Test Item Value Reference Range Interpretation Comme nts HEMOGLOBIN ABG (test code = HGB/ABG) 8.3 G/DL 12.5-16.9 L [id number] 17:38:00* Test Item Value Reference Range Interpretation Comme nts HEMATOCRIT (test code = HCT/ABG) 25 % 37.5-50.7 L POC LACTIC [id number] 17:38:00* Test Item Value Reference Range Interpretation Comme nts POC LACTIC ACID (test code = POCLAC) 3.2 mmol/l 0.9-1.7 H [id number] 17:35:00* Test Item Value Reference Range Interpretation Comme nts ACT-ISTAT (test code = ACTI) 149 SEC 74-137 H Performed by cer tified laser machine operator at [facility] WHV-[id number] 16:46:00* Test Item Value Reference Range Interpretation Comme [facility] ACT-ISTAT (test code = ACTI) 630 SEC 74-137 H Performed by cer tified laser machine operator at [facility] POC ARTERIAL BLOOD [id number] 16:38:00* Test Item Value Reference Range Interpretation Comme nts POC ARTERIAL BLOOD GAS PH (t est code = POCPHA) 7.383 7.35-7.45 N POC ARTERIAL BLOOD GAS PCO2 (test code = RVGFMD9N) 39.4 mmHg 35.0-45 N POC TCO2 ARTERIAL (test code = POCTCO2) 24.7 POC ARTERIAL BLOOD GAS PO2 ( test code = LGBJQ2V) 405.8 mmHg 80-100.0 HH POC HCO3 ARTERIAL (test code = YBOMPD1B) 23.5 MMOL/L 22.0-26.0 N POC BASE EXCESS (test code = POCBEA) -1.5 MMOL/L -4.0-4.0 N POC O2 SATURATION (test code = POCO2S) 100.0 % 90-100 N BASIC METABOLIC [id number] 16:38:00* Test Item Value Reference Range Interpretation [...] = POCGLU) 232 MG/DL 70-110 H HEMOGLOBIN [id number] 16:38:00* Test Item Value Reference Range Interpretation Comme nts HEMOGLOBIN ABG (test code = HGB/ABG) 6.2 G/DL 12.5-16.9 L [id number] 16:38:00* Test Item Value Reference Range Interpretation Comme nts HEMATOCRIT (test code = HCT/ABG) 18 % 37.5-50.7 L POC LACTIC [id number] 16:38:00* Test Item Value Reference Range Interpretation Comme nts POC LACTIC ACID (test code = POCLAC) 2.0 mmol/l 0.9-1.7 H [id number] 16:29:00* Test Item Value Reference Range Interpretation Comme nts ACT-ISTAT (test code = ACTI) 756 SEC 74-137 H Performed by cer tified laser machine operator at [facility] POC ARTERIAL BLOOD [id number] 16:13:00* Test Item Value Reference Range Interpretation Comme nts POC ARTERIAL BLOOD GAS PH (t est code = POCPHA) 7.382 7.35-7.45 N POC ARTERIAL BLOOD GAS PCO2 (test code = GZWAZF8Z) 40.6 mmHg 35.0-45 N POC TCO2 ARTERIAL (test code = POCTCO2) 25.3 POC ARTERIAL BLOOD GAS PO2 ( test code = MYAOI8B) 476.4 mmHg 80-100.0 HH POC HCO3 ARTERIAL (test code = OZTYJB2J) 24.1 MMOL/L 22.0-26.0 N POC BASE EXCESS (test code = POCBEA) -0.9 MMOL/L -4.0-4.0 N POC O2 SATURATION (test code = POCO2S) 100.0 % 90-100 N BASIC METABOLIC [id number] 16:13:00* Test Item Value Reference Range Interpretation [...] = POCGLU) 245 MG/DL 70-110 H HEMOGLOBIN [id number] 16:13:00* Test Item Value Reference Range Interpretation Comme nts HEMOGLOBIN ABG (test code = HGB/ABG) 6.7 G/DL 12.5-16.9 L [id number] 16:13:00* Test Item Value Reference Range Interpretation Comme nts HEMATOCRIT (test code = HCT/ABG) 20 % 37.5-50.7 L POC LACTIC [id number] 16:13:00* Test Item Value Reference Range Interpretation Comme nts POC LACTIC ACID (test code = POCLAC) 1.7 mmol/l 0.9-1.7 N [id number] 15:57:00* Test Item Value Reference Range Interpretation Comme nts ACT-ISTAT (test code = ACTI) 967 SEC 74-137 H Performed by cer tified laser machine operator at [facility] POC ARTERIAL BLOOD [id number] 15:39:00* Test Item Value Reference Range Interpretation Comme nts POC ARTERIAL BLOOD GAS PH (t est code = POCPHA) 7.367 7.35-7.45 N POC ARTERIAL BLOOD GAS PCO2 (test code = QRFJPG3G) 43.1 mmHg 35.0-45 N POC TCO2 ARTERIAL (test code = POCTCO2) 26.1 POC ARTERIAL BLOOD GAS PO2 ( test code = ZFIOS0R) 489.2 mmHg 80-100.0 HH POC HCO3 ARTERIAL (test code = PWDONP7C) 24.7 MMOL/L 22.0-26.0 N POC BASE EXCESS (test code = POCBEA) -0.6 MMOL/L -4.0-4.0 N POC O2 SATURATION (test code = POCO2S) 100.0 % 90-100 N BASIC METABOLIC [id number] 15:39:00* Test Item Value Reference Range Interpretation [...] = POCGLU) 241 MG/DL 70-110 H HEMOGLOBIN [id number] 15:39:00* Test Item Value Reference Range Interpretation Comme nts HEMOGLOBIN ABG (test code = HGB/ABG) 6.6 G/DL 12.5-16.9 L [id number] 15:39:00* Test Item Value Reference Range Interpretation Comme nts HEMATOCRIT (test code = HCT/ABG) 20 % 37.5-50.7 L POC LACTIC [id number] 15:39:00* Test Item Value Reference Range Interpretation Comme nts POC LACTIC ACID (test code = POCLAC) 0.6 mmol/l 0.9-1.7 L [id number] 15:19:00* Test Item Value Reference Range Interpretation Comme nts ACT-ISTAT (test code = ACTI) 834 SEC 74-137 H Performed by cer tified laser machine operator at [facility] POC ARTERIAL BLOOD [id number] 15:08:00* Test Item Value Reference Range Interpretation Comme nts POC ARTERIAL BLOOD GAS PH (t est code = POCPHA) 7.221 7.35-7.45 LL POC ARTERIAL BLOOD GAS PCO2 (test code = KRBKKO4M) 56.0 mmHg 35.0-45 HH POC TCO2 ARTERIAL (test code = POCTCO2) 24.7 POC ARTERIAL BLOOD GAS PO2 ( test code = YDUAB3A) 497.4 mmHg 80-100.0 HH POC HCO3 ARTERIAL (test code = PNUUBB9K) 23.0 MMOL/L 22.0-26.0 N POC BASE EXCESS (test code = POCBEA) -4.8 MMOL/L -4.0-4.0 L POC O2 SATURATION (test code = POCO2S) 100.0 % 90-100 N BASIC METABOLIC [id number] 15:08:00* Test Item Value Reference Range Interpretation [...] = POCGLU) 271 MG/DL 70-110 H HEMOGLOBIN [id number] 15:08:00* Test Item Value Reference Range Interpretation Comme nts HEMOGLOBIN ABG (test code = HGB/ABG) 8.8 G/DL 12.5-16.9 L [id number] 15:08:00* Test Item Value Reference Range Interpretation Comme nts HEMATOCRIT (test code = HCT/ABG) 26 % 37.5-50.7 L POC LACTIC [id number] 15:08:00* Test Item Value Reference Range Interpretation Comme nts POC LACTIC ACID (test code = POCLAC) < 0.3 mmol/l 0.9-1.7 L [id number] 12:33:00* Test Item Value Reference Range Interpretation Comme nts ACT-ISTAT (test code = ACTI) 179 SEC 74-137 H Performed by cer tified laser machine operator at [facility] POC ARTERIAL BLOOD [id number] 12:31:00* Test Item Value Reference Range Interpretation Comme nts POC ARTERIAL BLOOD GAS PH (t est code = POCPHA) 7.390 7.35-7.45 N POC ARTERIAL BLOOD GAS PCO2 (test code = LQQLKJ6C) 36.7 mmHg 35.0-45 N POC TCO2 ARTERIAL (test code = POCTCO2) 23.3 POC ARTERIAL BLOOD GAS PO2 ( test code = HUVWC0U) 449.5 mmHg 80-100.0 HH POC HCO3 ARTERIAL (test code = MABOID8H) 22.2 MMOL/L 22.0-26.0 N POC BASE EXCESS (test code = POCBEA) -2.4 MMOL/L -4.0-4.0 N POC O2 SATURATION (test code = POCO2S) 100.0 % 90-100 N BASIC METABOLIC [id number] 12:31:00* Test Item Value Reference Range Interpretation [...] = POCGLU) 399 MG/DL 70-110 H HEMOGLOBIN [id number] 12:31:00* Test Item Value Reference Range Interpretation Comme nts HEMOGLOBIN ABG (test code = HGB/ABG) 9.8 G/DL 12.5-16.9 L [id number] 12:31:00* Test Item Value Reference Range Interpretation Comme nts HEMATOCRIT (test code = HCT/ABG) 29 % 37.5-50.7 L POC LACTIC [id number] 12:31:00* Test Item Value Reference Range Interpretation Comme nts POC LACTIC ACID (test code = POCLAC) 0.7 mmol/l 0.9-1.7 L TROP-I HIGH [id number] 08:10:00* Test Item Value Reference Range Interpretation Comme nts TROP-I HIGH SENSITIVITY (test code = TROPIHS) 617 ng/L 0-54 HH Critical result called to Radha [facility] at 0810 03/04/23Nurse read back result and [...] URL. These results were obtained using Siemens AtellThe Filter IM TnIHreagent. Results from different methodologies should not becompared to one another as quantitative results and URLs mayvary by method. COMPREHENSIVE METABOLIC [id number] 04:55:00* Test Item Value Reference Range Interpretation [...] code = ALKP) 45 IUnit/L 20-125 N [id number] 04:55:00* Test Item Value Reference Range Interpretation Comme nts MAGNESIUM (test code = MAG) 1.76 mg/dL 1.80-2.40 L UA RFLX MICR CULT IF [id number] 04:55:00* Test Item Value Reference Range Interpretation [...] PainSpecimen Description: CLEAN CATCHCOVID 19 Asymptomatic IH [id number] 04:07:00* Test Item Value Reference Range Interpretation [...] moderate, high or waivedcomplexity tests. THROMBOPLASTIN TIME [id number] 03:44:00* Test Item Value Reference Range Interpretation Comme nts THROMBOPLASTIN TIME PARTIAL (test code = PTT) 80.6 Seconds 25.0-39.5 H Therapeutic Rang e: 50.4 - 88.3 Seconds Effective 12/22/2018 COMMENTS: DRAW PTT 6 HOURS AFTER INITIATION OF HEPARINCBC W/AUTO [id number] 03:27:00* Test Item Value Reference Range Interpretation [...] Daily while on Heparin- CT HEAD/BRAIN W/O [id number] 00:00:00 [facility] 1950 Sex: M Name: TEVIN NYE [facility] [place] : 1950 Age/S: 72 / M [address] [place] [address] Blvd Unit #: [id number] Loc: [place] [address] Phys: Noé Madrid MD Acct: [id number] Dis Date: Status: ADM IN PHONE #: [phone] Exam Date: 03/04/20231932 FAX #: [phone] Reason: MINIMAL NEURO ACTIVITY Report Has Been Amended EXAMS: CPT CODE: [id number] CT HEAD/BRAIN W/O CONT 49004 Addendum - 03/04/2023 SIGNED 03/04/2023 ADDENDUM: [id number] CT/CTHDBRWO Findings have been communicated by telephone to Vaishnavi, the nurse taking care of the patient, at 7:44 p.m. on 03/04/2023. at 1944 Reported and signed by: Carisa Schuler M.D. Report PROCEDURE INFORMATION: Exam: CT Head Without Contrast Exam date and time: 37:26 PM Age: 72 years old Clinical indication: Stroke-like symptoms; Other: Minimal neuro activity TECHNIQUE: Imaging protocol: Computed tomography of the head without contrast. Radiation optimization: All CT scans at this facility use at least one of these dose optimization techniques: automated e xposure control; mA and/or kV adjustment per patient size (includes targeted exams where dose is matched to clinical indication); or iterative reconstruction. Other technique: STROKE PROTOCOL was implemented. REPORTING DATA: Count of CT and Cardiac NM exams in prior 12 months: This patient has rece ived [address] and 0 known cardiac nuclear medicine studies in the 12 months prior to the current study. COMPARISON: US DUP EXTRACRANIAL SCOTTY 03/03/2023 11:54 PM FINDINGS: Brain: No hemorrhage, mass or mass effect is seen. The nj-white junction is intact. There is wcrx-gg-ojaseklq patchy low attenuation in the cerebral white matter, likely reflecting chronic small vessel ischemic disease. Small lacunar infarcts are present in the right caudate head and anterior limb left internal capsule. There are probably several old lacunar infarcts in the jose bilaterally. One on the left is small. PAGE 1 Signed Report (CONTINUED) Name: [facility] : 1950 Age/S: 72 / M [address] [place] [address] Blvd Unit #: [id number] Loc: [place] [address] Phys: Noé Madrid MD Acct: [id number] Dis Date: Status: ADM IN PHONE #: [phone] Exam Date: 03/04/20231932 FAX #: [phone] Reason: MINIMAL NEURO ACTIVITY Report Has Been Amended EXAMS: CPT CODE: [id number] CT HEAD/BRAIN W/O CONT 62404 (Continued) Another on the right is large. [...] and chronic paranasal sinus disease. ASSESSMENT: ASPECTS ([place] [facility] [place] Program Early CT Score) is 10. at 1940 Reported and signed by: Carisa Schuler M.D. CC: Noé Madrid MD; Luci Beyer MD Technologist:Nani Birmingham, RT(R)(CT) CTDI: DLP: Trnscb Date/Time: 03/04/2023 (1939) ShaYA Orig Print D/T: S: 03/04/2023 (1939) PAGE 2 Signed Report- XR CHEST 1 [id number] 00:00:00[facility] : 1950 Sex: M FAX: Luci Wang [phone] [place]: St: ADM FAX: Evon Garcia [facility] [phone] -- Name: TEVIN NYE [facility] [place] : 1950 Age/S: 72/M [address] [place] [address] Unit #: [id number] Loc: G[address] [place] [address] Phys: Evon Andrew Physic Acct: [id number] Dis Date: Status: ADM IN PHONE #: [phone] Exam Date: 03/04/20231821 FAX #: [phone] Reason: Cardiac Surgery Post Op EXAMS: CPT CODE: [id number] XR CHEST 1 V 36308 PROCEDURE INFORMATION: Exam: XR Chest Exam date and time: 03/04/2023 6:11 PM Age: 72 years old Clinical indication: Other: Cardiac surgery post op TECHNIQUE: Imaging protocol: Radiologic exam of the chest. Views: 1 view. COMPARISON: CR XR CHEST 1V 03/04/2023 5:06AM FINDINGS: Tubes, catheters and devices: ET tube noted with tip 1 cm above the cristian. A right IJCVC catheter is present with tip overlying the distal SVC. A left-sided basilar chest tube is present. A right-sided chest tube is noted with tip in the right hilar region. Lungs: Mild decreased lungvolumes. There is mild prominence of interstitial markings, [...] signed by: Carisa Schuler M.D. CC: Luci Beyer MD; Evon Andrew Technologist: SHONNA Bae) Trnscrd Date/Time/By: 03/04/2023 (1935) : By: Jose Juan Orig Print D/T: S: 03/04/2023 (1936) PAGE 1 Signed Report- XR CHEST 1 [id number] 00:00:00 [facility] : 1950 Sex: M FAX: Luci Wang [phone] [place]: St: [facility] FAX: Emery Sheehan Jr [phone] ---- Name: TEVIN NYE [facility] Vidal Pope : 1950 Age/S: 72/M [address] [place] [address] Blvd Unit #: [id number] Loc: [place] [address] Phys: Emery Sheehan Jr, MD Acct: [id number] Dis Date: Status: ADM IN PHONE #: [phone] Exam Date: 03/04/2023 0651 FAX #: [phone] Reason: DAILY IN CVICU EXAMS: CPT CODE: [id number] XR CHEST 1 V 24705 PROCEDURE INFORMATION: Exam: XR Chest Exam date and time: 03/04/2023 5:06 AMAge: 72 years old Clinical indication: Other: Daily in cvicu TECHNIQUE: Imaging protocol: Radiologic exam of the chest. Views: 1 view. COMPARISON: CTA CHEST, CTA CHEST 03/03/2023 11:42 PM FINDINGS: Lungs: Emphysema. Nonspecific bibasilar opacities. The upper and mid lung tidwell are clear. Pleural spaces: No large pleural effusion. No pneumothorax. Heart/Mediastinum: No cardiomegaly. Vasculature: Atherosclerotic calcifications. Bones/joints: No acute fracture. IMPRESSION: Mild bibasilar opacitieswhich may represent atelectasis or infiltrate. at 0806 Reported and signed by: Bon Spangler M.D. CC: Luci Beyer MD; Emery Sheehan Jr, MD Technologist: Artemio Downing, RT(R) Trnscrd Date/Time/By: 03/04/2023 (08) : By: [email or web address] Orig Print D/T: S: 03/04/2023 (07) PAGE 1 Signed Report- ENRRIQUE ESCALERA [id number] 00:00:00 [facility] 1950 Sex: M Name: TEVIN NYE [facility] : 1950 Age/S: 72 / M [address] [place] [address] Blvd Unit #: [id number] Loc: [place] [address] Phys: Sharmila Alan Acct: [id number] Dis Date: Status: ADM IN PHONE #: [phone] Exam Date: 03/04/2023712 FAX #: [phone] Reason: Swelling, R/O DVT EXAMS: CPT CODE: [id number] DUP VEIN SCOTTY 86391 PROCEDURE INFORMATION: Exam: US Duplex Lower Extremity [...] Ezekiel Esteves M.D. CC: Sharmila Alan; Luci Beyer MD Technologist: Nacny Márquez RDMS(AB)(OB) Trnscb Date/Time: 03/04/2023 (803) [email or web address] Orig Print D/T: S: 03/04/2023 (804) Probe: PAGE 1 Signed Report- CT ANGIO [id number] 00:00:00[facility] : 1950 Sex: M Name: TEVIN NYE [facility] : 1950 Age/S: 72 / M [address] [place] [address] Blvd Unit #: [id number] Loc: [place] [address] Phys: Sharmila Alan Acct: [id number] Dis Date: Status: ADM IN PHONE #: [phone] Exam Date: 03/03/2023 2342 FAX #: [phone] Reason: R/O PE EXAMS: CPT CODE: [id number] CT ANGIO CHEST 16966 PROCEDURE INFORMATION: Exam: CTA Chest With Contrast Exam date and time:03/03/2023 11:42 PM Age: 72 years old Clinical [...] exams where dose is matched to clinical indica tion); or iterative reconstruction. Contrast material: ISO 300; Contrast volume: 100 ml; Contrast route: INTRAVENOUS (IV); REPORTING DATA: Count of CT and Cardiac NM exams in prior 12 months: This patient has received 0 known CTs and 0 known cardiac nuclear medicine studies in the 12 months prior to the current study. COMPARISON: No relevant prior studies available. FINDINGS: Pulmonary arteries:No acute pulmonary emboli. Aorta: Atherosclerotic calcifications of the thoracic aorta and great vessel origins. Lungs: Emphysematous changes within both lungs. Subsegmental atelectasis at the lung bases. A 1.5 x 0.8 cm nodular opacity within the right lower lobe (axial series 2, image 79). Pleuralspaces: Trace bilateral pleural effusions. Heart: Trace pericardial [...] 1 Signed Report (CONTINUED) Name: TEVIN NYE [facility] :1950 Age/S: 72 / M [address] [place] [address] Unit #: [id number] Loc: [place] [address] Phys: Sharmila Blue Acct: [id number] Dis Date: Status: ADM IN PHONE #: [phone] Exam Date: 03/03/2023 2342 FAX #: [phone] Reason: R/O PE EXAMS: CPT CODE: [id number] CT ANGIO CHEST 24930 (Continued) at 0150 Reported and signed by: Alvino Roman M.D. CC: Sharmila Alan; Luci Beyer MD Technologist:Barbra Emmanuel, RT(R) CTDI: DLP: Trnscb Date/Time: 03/04/2023 (0150) [email or web address] Orig Print D/T: S: 03/04/2023 (0150) PAGE 2 Signed Report- DUP VEIN [id number] 00:00:00 [facility] : 1950 Sex: M Name: TEVIN NYE [facility] : 1950 Age/S: 72 / M [address] [place] [address] Unit #: [id number] Loc: [place] [address] Phys: Luci Beyer MD Acct: [id number] Dis Date: Status:ADM IN PHONE #: [phone] Exam Date: 03/04/202320 FAX #: [phone] Reason: Cardiac SurgeryPre Op EXAMS: CPT CODE: [id number] DUP VEIN SCOTTY 60753 PROCEDURE INFORMATION: Exam: US Duplex Lower Extremity [...] IMPRESSION: Greater saphenous veins are patent. Vein iván ing as described. at 0206 Reported and signed by: Morales Villegas M.D. CC: Luci Beyer MD Technologist: Arcelia Dawn RDMS(AB)(OB) Trnscb Date/Time: 03/04/2023 (205) [email or web address] Orig Print D/T: S: 03/04/2023 (020) Probe: PAGE 1 Signed Report- DUP EXTRACRANIAL [id number] 00:00:00 [facility] : 1950 Sex: M Name: TEVIN NYE [facility] Vidal Pope : 1950 Age/S: 72 / M [address] [place] [address] Unit #: [id number] Loc: [place] [address] Phys: Luci Beyer MD Acct: [id number] Dis Date: Status: ADM IN PHONE #: [phone] Exam Date: 03/03/2023 002 FAX #: [phone] Reason: Cardiac Surgery Pre Op EXAMS: CPT CODE: [id number] DUP EXTRACRANIAL SCOTTY 20826 PROCEDURE INFORMATION: Exam: US DuplexBilateral Extracranial Arteries; Complete; Carotid Arteries Exam date and time: 03/03/2023 11:54 PM Age: 72 years old Clinical indication: Screening exam; Cardiac surgery pre op TECHNIQUE: Imaging protocol: Real-time duplex ultrasound scan of the bilateral extracranial arteries combining nj scale,color Doppler and spectral waveform analysis with image [...] 1 Signed Report (CONTINUED) Name: TEVIN NYE [facility] : 1950 Age/S: 72 / M [address] [place] [address] Unit #: [id number] Loc: [place] [address] Phys: Luci Beyer MD Acct:[id number] Dis Date: Status: ADM IN PHONE #: [phone] Exam Date: 03/03/202320 FAX #: [phone] Reason: Cardiac Surgery Pre Op EXAMS: CPT CODE: [id number] DUP EXTRACRANIAL SCOTTY 93650 (Continued) at 0217 Reported and signed by: Alvino Roman M.D. CC: Luci Beyer MD Technologist: Arcelia Dawn RDMS(AB)(OB) Trnscb Date/Time: 03/04/2023 (216) [email or web address] Orig Print D/T: S: 03/04/2023 (217) Probe: PAGE 2 Signed ReportB-TYPE NATRIURETIC [id number] 22:13:00 * Test Item Value Reference Range Interpretation Comme nts B-TYPE NATRIURETIC PEPTIDE ( test code = BNP) 802.0 PG/ML 0-100 H HGBA1C%2023-03-03 21:50:00* Test Item Value Reference Range Interpretation Comme nts HGBA1C% (test code = HGBA1C%) 7.1 %A1C 4.8-6.0 H COMPREHENSIVE METABOLIC [id number] 21:43:00* Test Item Value Reference Range Interpretation [...] = LDL) 53.0 mg/dL 0-100 N <100 YMDYTUI07 0-129 NEAR OPTIMAL/ABOVE DHOPVPV779-161 ABFBEEHQPV314-222 HIGH>MY=685 VERY HIGH*Guidelines provided by the National Cholesterol EducationProgram Adult Treatment Panel III PROTHROMBIN [id number] 21:40:00* Test Item Value Reference Range Interpretation [...] ALREADY DONE WITHIN LAST 24 HOURSCBC W/AUTO [id number] 21:29:00* Test Item Value Reference Range Interpretation [...] DONE WITHIN LAST 24 HOURSXR CHEST 1 [id number] 13:08:01EXAM: XR CHEST 1 VW HISTORY: ct [...] right.[facility]2020-02-17 12:41:00* Test Item Value Reference Range Interpretation Comme [facility] POCT GLU (test code = 1433673003) 117 mg/dL 70-110 H Lab Interpretation (test cod e = 26386-5) Abnormal [facility] METABOLIC PANEL (NA, K, CL, CO2, GLUCOSE, BUN, CREATININE, CA)2020-02-17 09:49:00* Test Item Value Reference Range Interpretation Comme [facility] NA (test code = 8352307202) 138 mmol/L 135-145 K (test code = 3213155585) 4.9 mmol/L 3.5-5 CL (test code = 3306624214) 106 mmol/L 98-108 CO2 TOTAL (test code = 5494149474) 27 mmol/L 23-31 AGAP (test code = 9853203788) 2-16 BUN (test code = 4074549744) 38 mg/dL 7-23 H GLUCOSE (test code = 3524577459) 203 mg/dL 70-110 H CREATININE (test code = 0047994700) 1.44 mg/dL 0.6-1.25 H CALCIUM (test code = 0369082032) 8.7 mg/dL 8.6-10.6 eGFR Calculation (Non-) (test code = 0325286053) mL/min/1.73m2 eGFR Calculation () (test code = 3505404376) mL/min/1.73m2 LOREN (test code = LOREN) Association [...] imaging tests). Lab Interpretation (test code = 88540-1) Abnormal [facility] WITH CTKFIQCDBSCL1878-00-09 09:27:00* Test Item Value Reference Range Interpretation Comme nts WBC (test code = 6690-2) See_Comment [Teabox] The system which generated this result transmitted reference range: 4.20 - 10.70 10*3/?L. The reference range was not used to interpret this result as normal/abnormal. RBC (test code = 789-8) See_Comment L [Teabox] The system which generated this result transmitted [...] 33.7 g/dL 31.2-35 RDW-SD (test code = 13902-8) 46.7 fL 38.5-51.6 RDW-CV (test code = 788-0) 14.1 % 12.1-15.4 PLT (test code = 777-3) See_Comment [Automated messa ge] The system which generated this result transmitted reference range: 150 - 328 10*3/?L. The reference range was not used to interpret this result as normal/abnormal. MPV (test code = 73266-3) 10.3 fL 9.8-13 NRBC/100 WBC (test code = 1448651355) See_Comment [Automated me ssage] The system which generated this result transmitted reference range: 0.0 - 10.0 /100 WBCs. The reference range was not used to interpret this result as normal/abnormal. NRBC x10^3 (test code = 4686153034) <0.01 See_Comment [Automated messa ge] The system which generated this result transmitted reference range: 10*3/?L. The reference range was not used to interpret this result as normal/abnormal. GRAN MAT (NEUT) % (test code = 770-8) 79.4 % IMM GRAN % (test code = 5885197340) 0.20 % LYMPH % (test code = 736-9) 11.2 % MONO % (test code = 5905-5) 6.7 % EOS % (test code = 713-8) 1.9 % BASO % (test code = 706-2) 0.6 % GRAN MAT x10^3(ANC) (test code = 1906486479) 4.24 10*3/uL 1.99-6.95 IMM GRAN x10^3 (test code = 8666619498) <0.03 0-0.06 LYMPH x10^3 (test code = 731-0) 0.60 10*3/uL 1.09-3.23 L MONO x10^3 (test code = 742-7) 0.36 10*3/uL 0.36-1.02 EOS x10^3 (test code = 711-2) 0.10 10*3/uL 0.06-0.53 BASO x10^3 (test code = 704-7) 0.03 10*3/uL 0.01-0.09 Lab Interpretation (test code = 63231-2) Abnormal [facility] GLUCOSE (AUTOMATED)2020-02-17 09:04:00* Test Item Value Reference Range Interpretation Comme nts POCT GLU (test code = 7270712929) 210 mg/dL 70-110 H Lab Interpretation (test cod e = 53007-0) Abnormal [facility] GLUCOSE (AUTOMATED)2020-02-17 05:34:00* Test Item Value Reference Range Interpretation Comme nts POCT GLU (test code = 4143135439) 251 mg/dL 70-110 H Lab Interpretation (test cod e = 23211-9) Abnormal [facility] GLUCOSE (AUTOMATED)2020-02-17 01:56:00* Test Item Value Reference Range Interpretation Comme nts POCT GLU (test code = 3776872754) 190 mg/dL 70-110 H Lab Interpretation (test cod e = 88773-2) Abnormal [facility] GLUCOSE (AUTOMATED)2020-02-17 01:06:00* Test Item Value Reference Range Interpretation Comme nts POCT GLU (test code = 1469325386) 224 mg/dL 70-110 H Lab Interpretation (test cod e = 88914-9) Abnormal [facility] Temple[facility]YCOSYL[facility] HEMOGLOBIN (A1C)2020-02-17 00:01:00* Test Item Value Reference Range Interpretation Comme nts HGB A1C (test code = 4548-4) 6.8 % 4-6 H Lab Interpretation (test cod e = 73861-2) Abnormal [facility] GLUCOSE (AUTOMATED)2020-02-16 21:07:00* Test Item Value Reference Range Interpretation Comme nts POCT GLU (test code = 4231552733) 303 mg/dL 70-110 H Lab Interpretation (test cod e = 87120-4) Abnormal [facility] GLUCOSE (AUTOMATED)2020-02-16 16:42:00* Test Item Value Reference Range Interpretation Comme nts POCT GLU (test code = 0459735441) 282 mg/dL 70-110 H Lab Interpretation (test cod e = 59128-3) Abnormal [facility] Temple[facility] CHEST 1 [id number] 13:17:11EXAM: XR CHEST 1 VW HISTORY: ptx [...] persists.[facility] TempleTROPOMATILDEN [id number] 13:04:00* Test Item Value Reference Range Interpretation Comme nts TROPONIN I (test code = 2922804865) 0.003 ng/mL See_Comment [Automated message] The system [...] biotin. ? Lab Interpretation (test code = 22555-5) Normal [facility] Temple[facility] METABOLIC PANEL (NA, K, CL, CO2, GLUCOSE, BUN, CREATININE, CA)2020-02-16 11:11:00* Test Item Value Reference Range Interpretation Comme nts NA (test code = 7634543863) 135 mmol/L 135-145 K (test code = 2926443213) 4.4 mmol/L 3.5-5 CL (test code = 8712313286) 105 mmol/L 98-108 CO2 TOTAL (test code = 4109459950) 24 mmol/L 23-31 AGAP (test code = 2106473608) 2-16 BUN (test code = 1014807476) 58 mg/dL 7-23 H GLUCOSE (test code = 1853926043) 226 mg/dL 70-110 H CREATININE (test code = 2035207361) 1.96 mg/dL 0.6-1.25 H CALCIUM (test code = 4799889613) 8.2 mg/dL 8.6-10.6 L eGFR Calculation (Non-) (test code = 9208514083) mL/min/1.73m2 eGFR Calculation () (test code = 6211478366) mL/min/1.73m2 LOREN (test code = LOREN) Association [...] imaging tests). Lab Interpretation (test code = 63145-3) Abnormal [facility] WITH SCPPZSGPNYYZ4536-48-64 10:36:00* Test Item Value Reference Range Interpretation Comme nts WBC (test code = 6690-2) See_Comment [Automated messa ge] The system which [...] 33.9 g/dL 31.2-35 RDW-SD (test code = 57691-5) 45.3 fL 38.5-51.6 RDW-CV (test code = 788-0) 13.8 % 12.1-15.4 PLT (test code = 777-3) See_Comment L [Automated messa ge] The system which generated this result transmitted reference range: 150 - 328 10*3/?L. The reference range was not used to interpret this result as normal/abnormal. MPV (test code = 56302-5) 10.1 fL 9.8-13 NRBC/100 WBC (test code = 6749832434) See_Comment [Automated [employer] ssage] The system which generated this result transmitted reference range: 0.0 - 10.0 /100 WBCs. The reference range was not used to interpret this result as normal/abnormal. NRBC x10^3 (test code = 3362270515) <0.01 See_Comment [Automated messa ge] The system which generated this result transmitted reference range: 10*3/?L. The reference range was not used to interpret this result as normal/abnormal. GRAN MAT (NEUT) % (test code = 770-8) 70.2 % IMM GRAN % (test code = 2234342468) 0.50 % LYMPH % (test code = 736-9) 15.7 % MONO % (test code = 5905-5) 8.3 % EOS % (test code = 713-8) 4.8 % BASO % (test code = 706-2) 0.5 % GRAN MAT x10^3(ANC) (test code = 5053623962) 2.95 10*3/uL 1.99-6.95 IMM GRAN x10^3 (test code = 1119681011) <0.03 0-0.06 LYMPH x10^3 (test code = 731-0) 0.66 10*3/uL 1.09-3.23 L MONO x10^3 (test code = 742-7) 0.35 10*3/uL 0.36-1.02 L EOS x10^3 (test code = 711-2) 0.20 10*3/uL 0.06-0.53 BASO x10^3 (test code = 704-7) <0.03 0.01-0.09 Lab Interpretation (test code = 54614-9) Abnormal [facility] GLUCOSE (AUTOMATED)2020-02-16 05:14:00* Test Item Value Reference Range Interpretation Comme nts POCT GLU (test code = 3038193757) 272 mg/dL 70-110 H Notified Provide r Lab Interpretation (test code = 33648-8) Abnormal [facility] GLUCOSE (AUTOMATED)2020-02-16 02:08:00* Test Item Value Reference Range Interpretation Comme nts POCT GLU (test code = 1037279695) 302 mg/dL 70-110 H Lab Interpretation (test cod e = 25393-0) Abnormal [facility] GLUCOSE (AUTOMATED)2020-02-15 22:46:00* Test Item Value Reference Range Interpretation Comme nts POCT GLU (test code = 1161132111) 270 mg/dL 70-110 H Lab Interpretation (test cod e = 32132-5) [facility] [id number] 15:11:50 Somewhat limited examination due to patient [...] cm in length (119 ml). No hydronephrosis. [facility], Radiant Results Inft User - 02/15/2020 [...] [facility] 13:20:00* Test Item Value Reference Range Interpretation Comme nts POCT GLU (test code = 8996410775) 155 mg/dL 70-110 H Lab Interpretation (test cod e = 23448-4) [facility] [id number] 12:56:56EXAM: XR CHEST 1 VW HISTORY: MV [...] atelectasis in the right midlung laterally. Subcutaneousemphysema persists.[facility] METABOLIC PANEL (NA, K, CL, CO2, GLUCOSE, BUN, CREATININE, CA)2020-02-15 10:15:00* Test Item Value Reference Range Interpretation Comme nts NA (test code = 0188635457) 134 mmol/L 135-145 L K (test code = 9917976371) 4.6 mmol/L 3.5-5 CL (test code = 3458500179) 101 mmol/L 98-108 CO2 TOTAL (test code = 5532337906) 24 mmol/L 23-31 AGAP (test code = 3609075001) 2-16 BUN (test code = 0393315580) 76 mg/dL 7-23 H GLUCOSE (test code = 0292568209) 147 mg/dL 70-110 H CREATININE (test code = 1257020056) 3.26 mg/dL 0.6-1.25 H CALCIUM (test code = 2655982581) 8.1 mg/dL 8.6-10.6 L eGFR Calculation (Non-) (test code = 0185579442) mL/min/1.73m2 eGFR Calculation () (test code = 8079193127) mL/min/1.73m2 LOREN (test code = LOREN) Association [...] imaging tests). Lab Interpretation (test code = 29020-6) Abnormal [facility] WITH [id number] 09:36:00* Test Item Value Reference Range Interpretation Comme nts WBC (test code = 6690-2) See_Comment [Automated [employer]] The system which generated this result transmitted reference range: 4.20 - 10.70 10*3/?L. The reference range was not used to interpret this result as normal/abnormal. RBC (test code = 789-8) See_Comment L [Automated [employer]] The system which generated this result transmitted [...] 33.3 g/dL 31.2-35 RDW-SD (test code = 90051-9) 46.5 fL 38.5-51.6 RDW-CV (test code = 788-0) 14.0 % 12.1-15.4 PLT (test code = 777-3) See_Comment L [Automated messa ge] The system which generated this result transmitted reference range: 150 - 328 10*3/?L. The reference range was not used to interpret this result as normal/abnormal. MPV (test code = 27094-5) 10.9 fL 9.8-13 NRBC/100 WBC (test code = 1377352085) See_Comment [Automated me ssage] The system which generated this result transmitted reference range: 0.0 - 10.0 /100 WBCs. The reference range was not used to interpret this result as normal/abnormal. NRBC x10^3 (test code = 4107952768) <0.01 See_Comment [Automated messa ge] The system which generated this result transmitted reference range: 10*3/?L. The reference range was not used to interpret this result as normal/abnormal. GRAN MAT (NEUT) % (test code = 770-8) 78.7 % IMM GRAN % (test code = 1295125610) 0.50 % LYMPH % (test code = 736-9) 9.3 % MONO % (test code = 5905-5) 8.2 % EOS % (test code = 713-8) 2.9 % BASO % (test code = 706-2) 0.4 % GRAN MAT x10^3(ANC) (test code = 9831651809) 4.32 10*3/uL 1.99-6.95 IMM GRAN x10^3 (test code = 6086643677) 0.03 10*3/uL 0-0.06 LYMPH x10^3 (test code = 731-0) 0.51 10*3/uL 1.09-3.23 L MONO x10^3 (test code = 742-7) 0.45 10*3/uL 0.36-1.02 EOS x10^3 (test code = 711-2) 0.16 10*3/uL 0.06-0.53 BASO x10^3 (test code = 704-7) <0.03 0.01-0.09 Lab Interpretation (test code = 30250-6) Abnormal [facility] [id number] 05:53:00* Test Item Value Reference Range Interpretation Comme nts T. VOL U (test code = 0399596660) 700 mL HR COLLECT (test code = 2480481203) Hours NA URINE (test code = 8205038493) 22 mmol/L NA U/24H (test code = 2305400155) See_Comment L [Automated messa ge] The system which generated this result transmitted reference range: 40 - 220 mmol/24 hrs. The reference range was not used to interpret this result as normal/abnormal. Lab Interpretation (test code = 63525-7) [facility]2020-02-15 01:57:00* Test Item Value Reference Range Interpretation Comme nts POCT GLU (test code = 0823698461) 199 mg/dL 70-110 H Lab Interpretation (test cod e = 18009-7) [facility]normal [facility] TempleCHLORIDE, URINE [id number] 01:52:00* Test Item Value Reference Range Interpretation Comme nts CL URINE (test code = 1882552921) <15 30-260 L Lab Interpretation (test cod e = 73610-9) [facility]normal [facility] Temple[facility]OTASSIUM, URINE [id number] 01:39:00* Test Item Value Reference Range Interpretation Comme nts K URINE (test code = 2886038761) 60.5 mmol/L [facility]IN[facility]IS2020-06-09 01:10:00* Test Item Value Reference Range Interpretation Comme nts APPEARANCE (test code = 5029106789) Hazy Clear A COLOR (test code = 2516450316) Yellow Yellow PH (test code = 1385981228) 4.8-8.0 SP GRAVITY (test code = 2697589296) 1.003-1.030 GLU U QUAL (test code = 8807411410) Normal Normal BLOOD (test code = 0130236251) 2+ Negative A KETONES (test code = 0626667929) Negative Negative PROTEIN (test code = 2887-8) Negative Negative UROBILIN (test code = 3127050684) Normal Normal BILIRUBIN (test code = 8789570919) Negative Negative NITRITE (test code = 9580126625) Negative Negative LEUK RICHMOND (test code = 1706619362) Negative Negative RBC/HPF (test code = 5013534913) See_Comment H [Automated messa ge] The system which generated this result transmitted reference range: 0 - 3 HPF. The reference range was not used to interpret this result as normal/abnormal. WBC/HPF (test code = 9651520122) See_Comment [Automated messa ge] The system which generated this result transmitted reference range: 0 - 5 HPF. The reference range was not used to interpret this result as normal/abnormal. BACTERIA (test code = 9684554973) Negative Negative MUCOUS (test code = 1087333397) Slight Negative LPF A SQ EPITH (test code = 6391263527) <1 See_Comment [Automated messa ge] The system which generated this result transmitted reference range: <=2 HPF. The reference range was not used to interpret this result as normal/abnormal. Lab Interpretation (test code = 24503-1) [facility]normal [facility] Temple[facility]IUM, URINE [id number] 23:41:00* Test Item Value Reference Range Interpretation Comme nts NA URINE (test code = 1663574583) 20 mmol/L [facility] GLUCOSE (AUTOMATED)2020-02-14 23:12:00* Test Item Value Reference Range Interpretation Comme nts POCT GLU (test code = 4169618264) 115 mg/dL 70-110 H Lab Interpretation (test cod e = 29817-8) Abnormal [facility] GLUCOSE (AUTOMATED)2020-02-14 22:31:00* Test Item Value Reference Range Interpretation Comme nts POCT GLU (test code = 9438510388) 124 mg/dL 70-110 H Lab Interpretation (test cod e = 83233-3) [facility]normal [facility] 1 [id number] 21:47:22 FINDINGS/IMPRESSION: Right-sided chest tube has been [...] chest tube removed COMPARISON: X-ray dated 02/14/2020 [facility], Radiant Results Inft User - 02/14/2020 4:48 [...] abovereport.[facility] GL[facility] (AUTOMATED)2020-02-14 13:14:00* Test Item Value Reference Range Interpretation Comme nts POCT GLU (test code = 9414038526) 136 mg/dL 70-110 H Lab Interpretation (test cod e = 54054-5) Abnormal [facility] 1 [id number] 13:02:33EXAM: XR CHEST 1 VW HISTORY: CT [...] right.[facility] Temple[facility] METABOLIC PANEL (NA, K, CL, CO2, GLUCOSE, BUN, CREATININE, CA)2020-02-14 09:35:00* Test Item Value Reference Range Interpretation Comme nts NA (test code = 8033784475) 134 mmol/L 135-145 L K (test code = 1524311006) 4.4 mmol/L 3.5-5 CL (test code = 4342591356) 102 mmol/L 98-108 CO2 TOTAL (test code = 4566308760) 25 mmol/L 23-31 AGAP (test code = 1884545749) 2-16 BUN (test code = 3661381030) 65 mg/dL 7-23 H GLUCOSE (test code = 4268585381) 136 mg/dL 70-110 H CREATININE (test code = 7348719454) 4.32 mg/dL 0.6-1.25 H CALCIUM (test code = 6904697274) 7.8 mg/dL 8.6-10.6 L eGFR Calculation (Non-) (test code = 9808543061) mL/min/1.73m2 eGFR Calculation () (test code = 8611932176) mL/min/1.73m2 LOREN (test code = LOREN) Association [...] imaging tests). Lab Interpretation (test code = 58063-9) Abnormal [facility] WITH [id number] 09:15:00* Test Item Value Reference Range Interpretation Comme nts WBC (test code = 6690-2) See_Comment [Automated [employer]] The system which generated this result transmitted reference range: 4.20 - 10.70 10*3/?L. The reference range was not used to interpret this result as normal/abnormal. RBC (test code = 789-8) See_Comment L [Automated [employer]] The system which generated this result [...] 33.2 g/dL 31.2-35 RDW-SD (test code = 69250-0) 47.9 fL 38.5-51.6 RDW-CV (test code = 788-0) 14.0 % 12.1-15.4 PLT (test code = 777-3) See_Comment L [Automated [employer]] The system which generated this result transmitted reference range: 150 - 328 10*3/?L. The reference range was not used to interpret this result as normal/abnormal. MPV (test code = 69288-4) 10.5 fL 9.8-13 NRBC/100 WBC (test code = 5127959480) See_Comment [Automated [employer] ssage] The system which generated this result transmitted reference range: 0.0 - 10.0 /100 WBCs. The reference range was not used to interpret this result as normal/abnormal. NRBC x10^3 (test code = 0838458452) <0.01 See_Comment [Automated messa ge] The system which generated this result transmitted reference range: 10*3/?L. The reference range was not used to interpret this result as normal/abnormal. GRAN MAT (NEUT) % (test code = 770-8) 75.0 % IMM GRAN % (test code = 8247551063) 0.60 % LYMPH % (test code = 736-9) 13.3 % MONO % (test code = 5905-5) 7.7 % EOS % (test code = 713-8) 3.0 % BASO % (test code = 706-2) 0.4 % GRAN MAT x10^3(ANC) (test code = 4830352775) 4.02 10*3/uL 1.99-6.95 IMM GRAN x10^3 (test code = 1566409371) 0.03 10*3/uL 0-0.06 LYMPH x10^3 (test code = 731-0) 0.71 10*3/uL 1.09-3.23 L MONO x10^3 (test code = 742-7) 0.41 10*3/uL 0.36-1.02 EOS x10^3 (test code = 711-2) 0.16 10*3/uL 0.06-0.53 BASO x10^3 (test code = 704-7) <0.03 0.01-0.09 Lab Interpretation (test code = 72553-2) Abnormal [facility] TempleCREATININE, URINE [id number] 05:08:00* Test Item Value Reference Range Interpretation Comme nts CREAT U (test code = 4404476404) 226.2 mg/dL [facility] TempleP[facility]J GLU[facility]SE (AUTOMATED)2020-02-14 01:54:00* Test Item Value Reference Range Interpretation Comme nts POCT GLU (test code = 3898887827) 173 mg/dL 70-110 H Lab Interpretation (test cod e = 81038-8) Abnormal [facility] METABOLIC PANEL (NA, K, CL, CO2, GLUCOSE, BUN, CREATININE, CA)2020-02-14 00:55:00* Test Item Value Reference Range Interpretation Comme nts NA (test code = 9263137912) 136 mmol/L 135-145 K (test code = 5780427410) 4.8 mmol/L 3.5-5 CL (test code = 9359616640) 101 mmol/L 98-108 CO2 TOTAL (test code = 1872732069) 26 mmol/L 23-31 AGAP (test code = 7670207658) 2-16 BUN (test code = 6540705005) 64 mg/dL 7-23 H GLUCOSE (test code = 6151417050) 171 mg/dL 70-110 H CREATININE (test code = 8787127655) 4.30 mg/dL 0.6-1.25 H CALCIUM (test code = 3178368114) 8.5 mg/dL 8.6-10.6 L eGFR Calculation (Non-) (test code = 4636110473) mL/min/1.73m2 eGFR Calculation () (test code = 1059838104) mL/min/1.73m2 LOREN (test code = LOREN) Association [...] imaging tests). Lab Interpretation (test code = 05967-0) Abnormal [facility] GLUCOSE (AUTOMATED)2020-02-13 22:34:00* Test Item Value Reference Range Interpretation Comme nts POCT GLU (test code = 2987666526) 170 mg/dL 70-110 H Lab Interpretation (test cod e = 01682-1) [facility]normal [facility] 1 [id number] 21:02:13 FINDINGS/IMPRESSION: The right chest tube is [...] reviewed this study and agree with the abovereport.[facility] GLUCOSE (AUTOMATED) 2020-02-13 17:49:00* Test Item Value Reference Range Interpretation Comme nts POCT GLU (test code = 1407938683) 185 mg/dL 70-110 H Lab Interpretation (test cod e = 93836-1) [facility]normal [facility]OL[facility] (NA, K, CL, CO2, GLUCOSE, BUN, CREATININE, CA)2020-02-13 16:05:00* Test Item Value Reference Range Interpretation Comme nts NA (test code = 2267254483) 136 mmol/L 135-145 K (test code = 6769599172) 4.7 mmol/L 3.5-5 CL (test code = 3016392160) 102 mmol/L 98-108 CO2 TOTAL (test code = 7781812136) 26 mmol/L 23-31 AGAP (test code = 3323449750) 2-16 BUN (test code = 9788269170) 54 mg/dL 7-23 H GLUCOSE (test code = 7586868160) 181 mg/dL 70-110 H CREATININE (test code = 1168145488) 4.11 mg/dL 0.6-1.25 H CALCIUM (test code = 1574073377) 8.5 mg/dL 8.6-10.6 L eGFR Calculation (Non-) (test code = 5306510933) mL/min/1.73m2 eGFR Calculation () (test code = 4204534151) mL/min/1.73m2 LOREN (test code = LOREN) Association [...] imaging tests). Lab Interpretation (test code = 98071-7) Abnormal [facility] WITH [id number] 16:01:00* Test Item Value Reference Range Interpretation Comme nts WBC (test code = 6690-2) See_Comment [Automated messa ge] The system which [...] 33.5 g/dL 31.2-35 RDW-SD (test code = 37992-8) 48.3 fL 38.5-51.6 RDW-CV (test code = 788-0) 14.2 % 12.1-15.4 PLT (test code = 777-3) See_Comment [Automated messa ge] The system which generated this result transmitted reference range: 150 - 328 10*3/?L. The reference range was not used to interpret this result as normal/abnormal. MPV (test code = 82598-8) 11.1 fL 9.8-13 NRBC/100 WBC (test code = 9818667286) See_Comment [Automated [employer] ssage] The system which generated this result transmitted reference range: 0.0 - 10.0 /100 WBCs. The reference range was not used to interpret this result as normal/abnormal. NRBC x10^3 (test code = 0064063591) <0.01 See_Comment [Automated messa ge] The system which generated this result transmitted reference range: 10*3/?L. The reference range was not used to interpret this result as normal/abnormal. GRAN MAT (NEUT) % (test code = 770-8) 78.8 % IMM GRAN % (test code = 3553824003) 0.40 % LYMPH % (test code = 736-9) 12.4 % MONO % (test code = 5905-5) 6.5 % EOS % (test code = 713-8) 1.4 % BASO % (test code = 706-2) 0.5 % GRAN MAT x10^3(ANC) (test code = 3744977500) 6.28 10*3/uL 1.99-6.95 IMM GRAN x10^3 (test code = 5740892524) 0.03 10*3/uL 0-0.06 LYMPH x10^3 (test code = 731-0) 0.99 10*3/uL 1.09-3.23 L MONO x10^3 (test code = 742-7) 0.52 10*3/uL 0.36-1.02 EOS x10^3 (test code = 711-2) 0.11 10*3/uL 0.06-0.53 BASO x10^3 (test code = 704-7) 0.04 10*3/uL 0.01-0.09 Lab Interpretation (test code = 86150-2) Abnormal [facility] GLUCOSE (AUTOMATED)2020-02-13 14:49:00* Test Item Value Reference Range Interpretation Comme nts POCT GLU (test code = 0767692093) 188 mg/dL 70-110 H Lab Interpretation (test cod e = 56515-1) Abnormal [facility] GLUCOSE (AUTOMATED)2020-02-13 02:44:00* Test Item Value Reference Range Interpretation Comme nts POCT GLU (test code = 8043925273) 160 mg/dL 70-110 H Lab Interpretation (test cod e = 37763-5) Abnormal [facility] GLUCOSE (AUTOMATED)2020-02-12 18:57:00* Test Item Value Reference Range Interpretation Comme nts POCT GLU (test code = 5823275307) 172 mg/dL 70-110 H Lab Interpretation (test cod e = 76985-2) [facility]normal [facility] [id number] 17:57:29Unchanged right chest tube without residual pneumothorax [...] abovereport.[facility]2020-02-12 13:36:00* Test Item Value Reference Range Interpretation Comme nts POCT GLU (test code = 7369374503) 232 mg/dL 70-110 H Lab Interpretation (test cod e = 95536-7) [facility]normal [facility]OL[facility] (NA, K, CL, CO2, GLUCOSE, BUN, CREATININE, CA)2020-02-12 10:32:00* Test Item Value Reference Range Interpretation Comme nts NA (test code = 2826032349) 137 mmol/L 135-145 K (test code = 4927244278) 5.0 mmol/L 3.5-5 CL (test code = 4710600203) 104 mmol/L 98-108 CO2 TOTAL (test code = 1859798467) 25 mmol/L 23-31 AGAP (test code = 3431039821) 2-16 BUN (test code = 5926358102) 30 mg/dL 7-23 H GLUCOSE (test code = 5352672659) 178 mg/dL 70-110 H CREATININE (test code = 6830761425) 1.71 mg/dL 0.6-1.25 H CALCIUM (test code = 8542105574) 8.5 mg/dL 8.6-10.6 L eGFR Calculation (Non-) (test code = 5388827461) mL/min/1.73m2 eGFR Calculation () (test code = 8447471825) mL/min/1.73m2 LOREN (test code = LOREN) Association [...] imaging tests). Lab Interpretation (test code = 44561-1) [facility]normal [facility]2020-06-06 10:31:00* Test Item Value Reference Range Interpretation Comme nts PHOSPHORUS (test code = 3631114667) 5.4 mg/dL 2.5-5 H Lab Interpretation (test cod e = 62723-2) Abnormal [facility] Temple[facility] WITH [id number] 10:10:00* Test Item Value Reference Range Interpretation Comme nts WBC (test code = 6690-2) See_Comment [Automated messa ge] The system which [...] 33.7 g/dL 31.2-35 RDW-SD (test code = 27247-0) 47.4 fL 38.5-51.6 RDW-CV (test code = 788-0) 14.3 % 12.1-15.4 PLT (test code = 777-3) See_Comment [Automated messa ge] The system which generated this result transmitted reference range: 150 - 328 10*3/?L. The reference range was not used to interpret this result as normal/abnormal. MPV (test code = 22413-9) 10.8 fL 9.8-13 NRBC/100 WBC (test code = 5377324767) See_Comment [Automated me ssage] The system which generated this result transmitted reference range: 0.0 - 10.0 /100 WBCs. The reference range was not used to interpret this result as normal/abnormal. NRBC x10^3 (test code = 6819907144) <0.01 See_Comment [Automated messa ge] The system which generated this result transmitted reference range: 10*3/?L. The reference range was not used to interpret this result as normal/abnormal. GRAN MAT (NEUT) % (test code = 770-8) 79.1 % IMM GRAN % (test code = 2509397647) 0.40 % LYMPH % (test code = 736-9) 9.6 % MONO % (test code = 5905-5) 9.5 % EOS % (test code = 713-8) 0.9 % BASO % (test code = 706-2) 0.5 % GRAN MAT x10^3(ANC) (test code = 4508255905) 6.24 10*3/uL 1.99-6.95 IMM GRAN x10^3 (test code = 5584069035) 0.03 10*3/uL 0-0.06 LYMPH x10^3 (test code = 731-0) 0.76 10*3/uL 1.09-3.23 L MONO x10^3 (test code = 742-7) 0.75 10*3/uL 0.36-1.02 EOS x10^3 (test code = 711-2) 0.07 10*3/uL 0.06-0.53 BASO x10^3 (test code = 704-7) 0.04 10*3/uL 0.01-0.09 Lab Interpretation (test code = 96504-9) Abnormal [facility] GLUCOSE (AUTOMATED)2020-02-12 03:58:00* Test Item Value Reference Range Interpretation Comme nts POCT GLU (test code = 6579624231) 165 mg/dL 70-110 H Lab Interpretation (test cod e = 61018-4) Abnormal [facility] GLUCOSE (AUTOMATED)2020-02-12 02:33:00* Test Item Value Reference Range Interpretation Comme nts POCT GLU (test code = 0206071753) 170 mg/dL 70-110 H Notified Provide r Lab Interpretation (test code = 26192-7) Abnormal [facility] 1 [id number] 01:02:10Interval advancement of right chest tube with [...] fractures, better evaluated on the prior CT. [facility], Radiant Results Inft User - 02/11/2020 8:03 [...] reviewed this study and agree with theabove report.[facility] [id number] 21:34:22NeCheryl morales MD ? ? 02/11/2020 ?4:34 [...] studies and ordering and performing treatments and interventionsUnWise Health System East CampusCOVID- 19 (ID NOW RAPID TESTING)2020-02-11 18:06:00* Test Item Value Reference Range Interpretation Comme nts SARS-CoV-2 Rapid ID NOW (test code = 39339-9) Not Detected Not Detected LOREN (test code = LOREN) ID NOW COVID-19 As say is an isothermal nucleic acid amplification test intended for the qualitative detection of nucleic acid from SARS-CoV-2 viral RNA in nasopharyngeal (CRTT) specimens. It is used under Emergency Use [...] clinically indicated. Lab Interpretation (test code = 20053-3) Normal [facility] Temple[facility] TRAUMA THORACIC SPINE WO [id number] 18:01:27No acute intracranial abnormality. 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 Multilevel mild to moderate degenerative changes [...] made of developmental incomplete fusion of the S0ddlbshgwv arch.Multilevel mild to moderate degenerative changes are [...] treating team is aware of and treating thepneumothoraxUnWise Health System East CampusCT TRAUMA LUMBAR SPINE WO [id number] 18:01:27No acute intracranial abnormality. No fracture or [...] made of developmental incomplete fusion of the E1hhtzhqkon arch. 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 Multilevel mild to moderate degenerative changes [...] made of developmental incomplete fusion of the M6plyojslip arch.Multilevel mild to moderate degenerative changes are [...] treating team is aware of and treating thepneumothoraxUnWise Health System East CampusCT TRAUMA CERVICAL SPINE WO [id number] 18:01:27No acute intracranial abnormality. No fracture or [...] made of developmental incomplete fusion of the B7errzlpdvl arch. Multilevel mild to moderate degenerative changes [...] made of developmental incomplete fusion of the C1isglmoyar arch.Multilevel mild to moderate degenerative changes are [...] treating team is aware of and treating thepneumothoraxUnWise Health System East CampusCT TRAUMA THORAX W CONTRAST 2020-02-11 17:59:251. Large [...] vertebral bodies is seen. The sternum appears arsaeli normal. Nondisplaced fractures are seen involving fourth [...] There is no evidence of anacute fracture. [facility], Radiant Results Inft User - 02/11/2020 1:00 PM CDTEXAM: CT scan of the chest with contrastEXAM: CT scan of the abdomen and pelvis with contrastHISTORY: Chest trauma,blunt, high energy, initial examTECHNIQUE:2 mm axial images are obtained from lung apices to the leana phragmsand 3 mm axial images are obtained [...] Diffuse diverticulosis of the sigmoid and descending colonUnWise Health System East CampusCT TRAUMA ABDOMEN PELVIS W [id number] 17:59:251. Large right pneumothorax2. Nondisplaced fractures involving [...] are obtained from lung apices to the leana phragmsand 3 mm axial images are obtained [...] Diffuse diverticulosis of the sigmoid and descending colonUnWise Health System East CampusXR CHEST 1 [id number] 17:45:46CHEST PORTABLE ONE VIEW HISTORY:Dyspnea, pneumothorax TECHNIQUE: [...] Hughes at 12:45 PM by phone on 02/11/2020[facility], Radiant Results Inft User - 02/11/2020 12:46 [...] Hughes at 12:45 PM by phone on 02/11/2020UnW[facility] East CampusTroponin [id number] 17:32:00* Test Item Value Reference Range Interpretation Comme nts TROPONIN I (test code = 1941471556) <0.012 See_Comment [Automated message] The system which [...] biotin. ? Lab Interpretation (test code = 60603-0) Normal [facility] TempleBasi Metabolic Panel (NA, K, CL, CO2, GLUCOSE, BUN, CREATININE, CA)2020-02-11 17:21:00* Test Item Value Reference Range Interpretation Comme nts NA (test code = 4924639655) 139 mmol/L 135-145 K (test code = 0037246067) 4.6 mmol/L 3.5-5 CL (test code = 3086370280) 107 mmol/L 98-108 CO2 TOTAL (test code = 6148083426) 27 mmol/L 23-31 AGAP (test code = 1359520596) 2-16 BUN (test code = 2615628196) 22 mg/dL 7-23 GLUCOSE (test code = 7381060059) 166 mg/dL 70-110 H CREATININE (test code = 2854093440) 1.12 mg/dL 0.6-1.25 CALCIUM (test code = 1210948295) 9.4 mg/dL 8.6-10.6 eGFR Calculation (Non-) (test code = 1722083104) mL/min/1.73m2 eGFR Calculation () (test code = 2371526813) mL/min/1.73m2 LOREN (test code = LOREN) Association [...] imaging tests). Lab Interpretation (test code = 28024-3) Abnormal [facility] TempleHepatic Function Panel (ALB, T.PRO, BILI T, BU/BC, ALT, AST, ALK PHOS)2020-02-11 17:21:00* Test Item Value Reference Range Interpretation Comme nts TOTAL BILI (test code = 4666662600) 0.6 mg/dL 0.1-1.1 BILI UNCON (test code = 8247280034) 0.7 mg/dL 0.1-1.1 BILI CONJ (test code = 4854478026) 0.0 mg/dL 0-0.3 T PROTEIN (test code = 7527604074) 7.8 g/dL 6.3-8.2 ALBUMIN (test code = 6506072625) 4.4 g/dL 3.5-5 ALK PHOS (test code = 1209944868) 79 U/L 34-122 ALTv (test code = 1742-6) 43 U/L 5-50 AST(SGOT) (test code = 9189472868) 63 U/L 13-40 H Lab Interpretation (test cod e = 69886-5) Abnormal [facility] Temple[facility]throm[facility] Time (PT) / [id number] 17:21:00 * Test Item Value Reference Range Interpretation Comme [facility] PROTIME PATIENT (test code = 5964-2) See_Comment [Automated [employer]] The system which generated this result transmitted reference range: 12.0 - 14.7 Seconds. The reference range was not used to interpret this result as normal/abnormal. INR (test code = 6301-6) Normal INR <1.1; Warfarin Therapeutic range 2.0 to 3.0 or 2.5 to 3.5, depending upon the indications. Lab Interpretation (test code = 00125-7) Normal [facility] [id number] 17:20:00* Test Item Value Reference Range Interpretation Comme [facility] APTT Patient (test code = 3173-2) See_Comment [Automated message] The system which generated this result transmitted reference range: 23 - 38 Seconds. The reference range was not used to interpret this result as normal/abnormal. LOREN (test code = LOREN) The [facility] patient population mean normal value for aPTT is 30 seconds. Lab Interpretation (test code = 96768-7) Normal [facility] TempleLipase [id number] 17:20:00* Test Item Value Reference Range Interpretation Comme [facility] LIPASE (test code = 1789403729) 118 U/L 0-220 Lab Interpretation (test cod e = 09708-7) Normal [facility] TempleCBC WITH [id number] 17:07:00* Test Item Value Reference Range Interpretation Comme [facility] WBC (test code = 6690-2) See_Comment [Automated [employer]] The system which generated this result transmitted reference range: 4.20 - 10.70 10*3/?L. The reference range was not used to interpret this result as normal/abnormal. RBC (test code = 789-8) See_Comment [Automated [employer]] The system which generated this result [...] 34.0 g/dL 31.2-35 RDW-SD (test code = 41685-5) 45.1 fL 38.5-51.6 RDW-CV (test code = 788-0) 13.7 % 12.1-15.4 PLT (test code = 777-3) See_Comment [Automated messa ge] The system which generated this result transmitted reference range: 150 - 328 10*3/?L. The reference range was not used to interpret this result as normal/abnormal. MPV (test code = 71995-1) 10.5 fL 9.8-13 NRBC/100 WBC (test code = 9766821457) See_Comment [Automated me ssage] The system which generated this result transmitted reference range: 0.0 - 10.0 /100 WBCs. The reference range was not used to interpret this result as normal/abnormal. NRBC x10^3 (test code = 2686901046) <0.01 See_Comment [Automated me ssage] The system which generated this result transmitted reference range: 10*3/?L. The reference range was not used to interpret this result as normal/abnormal. GRAN MAT (NEUT) % (test code = 770-8) 73.2 % IMM GRAN % (test code = 4780646340) 0.90 % LYMPH % (test code = 736-9) 16.8 % MONO % (test code = 5905-5) 6.3 % EOS % (test code = 713-8) 2.1 % BASO % (test code = 706-2) 0.7 % GRAN MAT x10^3(ANC) (test code = 9889080213) 5.14 10*3/uL 1.99-6.95 IMM GRAN x10^3 (test code = 3857815683) 0.06 10*3/uL 0-0.06 LYMPH x10^3 (test code = 731-0) 1.18 10*3/uL 1.09-3.23 MONO x10^3 (test code = 742-7) 0.44 10*3/uL 0.36-1.02 EOS x10^3 (test code = 711-2) 0.15 10*3/uL 0.06-0.53 BASO x10^3 (test code = 704-7) 0.05 10*3/uL 0.01-0.09 [facility] Notes Date/Time Note Provider Source 2023-04-23 15:18:00 [id number] [address] PATIENT NAME: TEVIN NYE ADMIT DATE: 04/08/23 ACCOUNT NO: [id number] ROOM NO: 55 AGE: 73 REPORT TYPE: 360 - QUERY RESPONSE DOCUMENT SEX: M ADMITTING PHYSICIAN:Elvie Gamboa MD ATTENDING PHYSICIAN:Rojelio Magaña MD Provider Query QUERY TEXT: Condition General 360MD Query related questions should be directed to: [facility] Coding Query Helpline Based on your clincial judgment could you please confirm the etiology of SOB( Pulmonary Embolism, Acute on chronic hypoxemic respiratory failure, COPD No exacerbation.) The patient's Clinical Indicators include: ADT Medical Reason: SOB, CHEST PAIN. Pulmonology Progress Note 04/16/2023 (1) Free Text A P: COPD No exacerbation. Pulmonology Progress Note 04/19/2023 (1) Free Text A P: Acute on chronic hypoxemic respiratory failure. ECHOCARDIOGRAM 04/10/2023 (2) Findings: The estimated ejection fraction is 55-59%. Options provided: -- Respond - Create new note now -- Dismiss - Not applicable / Not valid -- Dismiss - Clinically unable to determine / Unknown -- Assign to another provider QUERY RESPONSE: Provider was clinically unable to determine a response for this query Query created by: CLARA KAHN on 04/23/2023 10:08 AM at 1518 PATIENT NAME: TEVIN NYE [facility] 2023-04-19 21:44:00 [facility] ([facility] Hospitalist Discharge Summary REPORT#:[id number] REPORT STATUS: Signed DATE:04/19/23 TIME: 2143 PATIENT: TEVIN NYE UNIT #: [id number] ROOM/BED: [place] [address] : 51 AGE: 73 SEX: M ATTEND: Rojelio Magaña MD ADM AUTHOR: Rojelio Magaña MD * ALL edits or amendments must be made on the electronic/computer document * General Information Date of admission: Observation Start Date: Date of admission: 04/08/23 Discharge date: 04/19/23 Admission diagnosis: SOB (presumed PE) anemia (pancytopenia) JERAMY COPD h/o CAD s/p CABG X4 on 03/04/2023 DM HTN HLD Prostate cancer pulmonary nodule Debility i Discharge diagnosis: SOB (presumed PE) anemia (pancytopenia) JERAMY COPD h/o CAD s/p CABG X4 on 03/04/2023 DM HTN HLD Prostate cancer pulmonary nodule Debility i Hospital course: SOB (presumed PE) cardiology and pulmonary seen on 2.5 to 3 liters of oxygen per n/c echo wnl will give lasix twenty mg one time dose check chest xray 04/14- CXR on 04/13 was negative. pulmonary following. elevated D-dimer (presumed PE) V-Q scan with intermediate probability on therapeutic lovenox renally dosed for now 04/14- pulmonary following...worsening anemia, but guiaiac negaive anemia (pancytopenia) 04/14- hgb dropped to 8 today (9.7 two days ago). ask heme to see. h/o cancer. guiaiac negative. 04/15- hgb stable at 8. 8/- hgb 7.3...bone marrow bx planned today? 04/17 - hgb 7.5. s/p BM bx today. results pending. JERAMY with CKD renal seen on IVF creat improving COPD on home oxygen h/o CAD s/p CABG X4 on 03/04/2023 CTS consulted and seen DM accuchecks and SSI prn check A1C BG controlled HTN bp controlled resumed home meds HLD on statin stable Prostate cancer s/p XRT pulmonary nodule 04/17 - need f/u in 3 months. Debility per PT/OT could be a post acute rehab candidate consulted rehab recommend IRF check labs in am f/up wiht DR. Rinaldi 04/14- awiaitng tranfer to rehab. folow h/h. ask heme to see. 04/15- h/h stable. cleared by GI to change lovenox to Eliquis if pulmonary wishes. 04/16- hgb 7.3. Bone marrow bx planned. 04/17 - s/p bm bx today. results pending. hgb 7.5. on full dose lovenox. change to Eliquis when ok with pulmonary. need outpt f/u for pulmonary nodule. Pt is contemplating going home if no approval for rehab. 04/18 - doing better, more likely too high level for rehab. Plan to d/c home tomorrow with HH if ok will all MD's. 04/19 - d/c home today Pt. condition on discharge: improved, stable Allergies: Allergies: Penicillins (Coded, USE COMMENT BUTTON, 03/03/23) Med Rec Med Rec Discharge meds: Stop taking the following medications: METOPROLOL TARTRATE (LOPRESSOR) 25 MG TAB 25 [...] 20 MILLIGRAM ORAL DAILY. Continue taking these medications: OXYBUTYNIN (DITROPAN) 5 MG TAB 5 MILLIGRAM ORAL [...] CARB/VIT D3 500 MG/200 UNITS) 500 MG CALCIUM-5 MCG (200 UNIT) TAB 2 TABLET ORAL DAILY. [...] TWICE DAILY. Start taking the following new medications: AMIODARONE (PACERONE) 200 MG TAB 200 MILLIGRAM ORAL DAILY. Qty = 30 No Refills METOPROLOL TARTRATE (LOPRESSOR) 50 MG TAB 50 MILLIGRAM ORAL TWICE DAILY. Qty = 60 Refills = 2 APIXABAN (ELIQUIS) 5 MG TAB 5 MILLIGRAM ORAL TWICE DAILY. Qty = 60 Refills = 4 Objective VS/I O Last Documented: Result Date Time Pulse Ox 94 04/19 1105 O2 Delivery Room air 04/19 1105 B/P 119/56 04/19 0937 B/P Mean 76.8 04/19 0937 Pulse 69 04/19 0937 O2 Flow Rate 2.5 04/19 0800 Temp 97.7 04/19 0727 Resp 15 04/19 0727 FiO2 28 04/18 1948 General appearance: alert, awake, oriented Head/Eyes: atraumatic, clear cornea, EOMI Neck: supple/no meningismus Cardiovascular: normal heart sounds, regular rate rhythm, no gallop, no murmur , no rub Respiratory: aerating well, clear to auscultation, symmetric expansion Abdomen: non-tender, normal bowel sounds, soft, no distention Extremities: no clubbing, no cyanosis, no edema Musculoskeletal: normal inspection, painless range of motion Neuro/STONE BREAKER: alert, oriented X 3, CNII-XII intact Skin: dry, intact Ulcer: Type/cause: scab left foot. Results Findings/Data: Laboratory Tests: 04/19 04/19 04/19 1111 0730 0330 [...] (Auto) (14.0 - 32.0 %) 12.6 L Grainger % (Auto) (4.8 - 9.0 %) 10.7 H Eos % (Auto) (0.3 - 3.7 %) 2.5 Baso % (Auto) (0.0 - 2.0 %) 0.6 Neut # (Auto) (2.0 - 7.6 x10 3/uL) 2.38 Lymph # (Auto) (1.0 - 3.8 x10 3/uL) 0.41 L Grainger # (Auto) (0.1 - 0.8 x10 3/uL) [...] - 0.1 x10 3/uL) 0.00 Discharge Instructions PCP PCP follow-up: PCP: Samuel Mcguire MD Discharge to: Home/Self Care Additional Discharge Routines: PCP Follow-Up, Management Trainee Marketing Follow-Up Diet: Diabetic Activity: As Tolerated Follow-up Appointments PCP follow-up: PCP: Samuel Mcguire MD PCP follow up timeframe: In 2-3 weeks Attending Physician: Attending Physician: Rojelio Magaña MD Consulting provider 1: Provider 1: Bienvenido Rinaldi MD Specialty: CardiologyInterventional Consult follow up timeframe: In 2-3 weeks Consulting provider 2: Provider 2: Dakota Arvizu MD Specialty: Hematology and Oncology Follow up timeframe: In 2-3 weeks Special instructions: f/u for anemia and bone avila biopsy Consulting provider 3: Provider 3: Sharmila Alan Specialty: Pulmonary Disease Follow up timeframe: In 4-5 weeks Special instructions: needs f/u for Pe and Pulmonary nodule Quality: Discharge Advanced Care Plan 65 or Older Discussed with: patient Discussion included: living will (yes), power of compliance attorney (yes), code status ( full code) Current Medications Current medication review: I attest that the foregoing medication list in the medical record is true, accurate, and complete to the best of my knowledge. at 2148 RPT #:[id number] END OF REPORT [facility] 2023-04-19 16:59:00 [facility] Podiatry Progress Note REPORT#:[id number] REPORT STATUS: Signed DATE:04/19/23 TIME: 1658 PATIENT: TVEIN NYE UNIT #: [id number] ROOM/BED: 5517-1 : 51 AGE: 73 SEX: M ATTEND: Rjoelio Magaña MD ADM AUTHOR: Andres Rachel DPM * ALL edits or amendments must be made on the electronic/computer document * Subjective Chief complaint: left foot ulcer Patient reports: no confusion, no dizziness, no fever, no heartburn Objective General VS: Last Documented: Result Date Time Pulse Ox 94 04/19 1105 O2 Delivery Room air 04/19 1105 B/P 119/56 04/19 0937 B/P Mean 76.8 04/19 937 Pulse 69 04/19 937 O2 Flow Rate 2.5 04/19 0800 Temp 36.5 04/19 727 Resp 15 04/19 727 FiO2 28 04/18 194 PATIENT WEIGHT: Weight (lb): Weight (oz): Weight (kg): 86.200 Medications: Active Meds + DC'd Last 24 Hrs Apixaban (ELIQUIS 5MG TABLET) 5 MG BID PO [...] Q4H PRN PRN IV (DCD) Dietitian nutrition assessment The data set between the solid lines has been imported from the dietitian's assessment. BMI Calculated: 29.8 Nutrition related diagnosis: Nutrition diagnosis details: Nutrition problem: Nutrition etiology: Nutrition signs and symptoms: Nutrition prescription: Dietitian name: Assessment completed: Physical Exam General appearance: alert, awake, oriented Wound/incision: Location: bilat foot Site condition: small pinpoint ulcer right foot. ulcer left forefoot dorsal. partial and full thickness. no erythema. no depth. LE vascular pulse assess: Nonpalpable R posterior tibialis, Nonpalpable L posterior tibialis, Nonpalpable R dorsalis pedis, Nonpalpable L dorsalis pedis Results Findings/Data: Laboratory Tests: 04/19 04/19 04/19 04/18 1111 0730 [...] (Auto) (14.0 - 32.0 %) 12.6 L Grainger % (Auto) (4.8 - 9.0 %) 10.7 H Eos % (Auto) (0.3 - 3.7 %) 2.5 Baso % (Auto) (0.0 - 2.0 %) 0.6 Neut # (Auto) (2.0 - 7.6 x10 3/uL) 2.38 Lymph # (Auto) (1.0 - 3.8 x10 3/uL) 0.41 L Grainger # (Auto) (0.1 - 0.8 x10 3/uL) [...] 3/uL) 0.00 Diagnosis, Assessment Plan Free Text A P: ulcer left foot. pain PVD ulcer is benign...starting to peel continue local wound care. no xray found. venous u/s neg NIAS: pvd as expected. rec'd to pt prevalon boots. pt to go home today covering for Dr. Washington at 1700 RPT #:[id number] END OF REPORT [facility] 2023-04-19 15:40:00 [facility] ([facility]) Pulmonology Progress Note REPORT#:[id number] REPORT STATUS: Signed DATE:04/19/23 TIME: 1540 PATIENT: TEVIN NYE UNIT #: [id number] ROOM/BED: [place] [address] : 51 AGE: 73 SEX: M ATTEND: Rojelio Magaña MD ADM AUTHOR: Sharmila Alan * ALL edits or amendments must be made on the electronic/computer document * Subjective Comments: On NC, no new complaints ROS All systems rev neg: except as marked Objective General VS/I O: Last Documented: Result Date Time Pulse Ox 94 04/19 1105 O2 Delivery Room air 04/19 1105 B/P 119/56 04/19 0937 B/P Mean 76.8 04/19 0937 Pulse 69 04/19 0937 O2 Flow Rate 2.5 04/19 0800 Temp 36.5 04/19 0727 Resp 15 04/19 07 FiO2 28 04/18 1948 PATIENT WEIGHT: Weight (lb): Weight (oz): Weight (kg): 86.200 Medications: Active Meds + DC'd Last 24 Hrs Apixaban (ELIQUIS 5MG TABLET) 5 MG BID PO [...] 4 MG Q4H PRN PRN IV Physical Exam General appearance: alert, awake, oriented, no acute distress Head/eyes: atraumatic, normocephalic, PERRL, EOMI Neck: no JVD, no lymphadenopathy Cardiovascular: normal heart sounds, normal S1/S2, regular rate rhythm Respiratory/chest: decreased breath sounds, on oxygen, aerating well, symmetric expansion Abdomen: soft, no guarding Extremities: moves all, no clubbing, no cyanosis, no edema Neuro/STONE BREAKER: CNII-XII intact Skin: dry, intact Ulcer: Type/cause: scab left foot. Psychiatry: normal affect, normal judgment/insight, normal mood Results Findings/Data: Laboratory Tests 04/19/23 0330: [Embedded Image Not Available] Laboratory Tests 04/19 04/19 04/19 04/18 1111 0730 [...] (Auto) (14.0 - 32.0 %) 12.6 L Grainger % (Auto) (4.8 - 9.0 %) 10.7 H Eos % (Auto) (0.3 - 3.7 %) 2.5 Baso % (Auto) (0.0 - 2.0 %) 0.6 Neut # (Auto) (2.0 - 7.6 x10 3/uL) 2.38 Lymph # (Auto) (1.0 - 3.8 x10 3/uL) 0.41 L Grainger # (Auto) (0.1 - 0.8 x10 3/uL) [...] 3/uL) 0.00 Diagnosis, Assessment Plan Free Text A P: Acute on chronic hypoxemic respiratory failure supplemental O2 as needed and wean as tolerated Pulmonary embolism Initially diagnosed in November 2022 at outside hospital; was on Eliquis from diagnosis through February. CTA chest 03/03/2023 was negative for pulmonary embolism. Patient was discharged home 03/13/2023 and told to discontinue taking Eliquis. -D-dimer 1496. -VQ scan with intermediate probability. 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 Check bilateral lower extremity Dopplers -> neg -Renally dose lovenox @ 1mg/kg once daily -d/w cardio. will ultimately AC with eliquis ASA. Off plavix. COPD No exacerbation. On Combivent and ipratropium nebs at home. -May need repeat pulmonary function test outpatient. 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 1.5 x 0.8 cm nodular opacity in RLL needs follow-up in 3 months CAD / PAD S/p CABG 03/04/2023 Cardiothoracic surgery following Echo noted JERAMY/CKD Nephrology consult Strict I O. Measure UOP. 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 S/P BMB per Heme PT/OT Rehab eval - Heme recs noted. Switched to Eliquis - F/U in office for repeat CT scan in 2-4 weeks at 1542 RPT #:[id number] END OF REPORT [facility] 2023-04-19 15:10:00 [facility] ([facility]) Avery/Oncology Progress Note REPORT#:[id number] REPORT STATUS: Signed DATE:04/19/23 TIME: 1510 PATIENT: TEVIN NYE UNIT #: [id number] ROOM/BED: [place] [address] : 51 AGE: 73 SEX: M ATTEND: Rojelio Magaña MD ADM AUTHOR: Dakota Arvizu MD * ALL edits or amendments must be made on the electronic/computer document * Subjective Chief Complaint: Doing better. Objective Physical Exam VS: Vital Signs Date Temp Pulse Resp B/P B/P Mean Pulse Ox FiO2 04/18-04/19 36.5-36.8 56-77 14-16 110-173/55-71 74.4-94.1 94-100 28 Last Documented: Result Date Time Pulse Ox 94 04/19 1105 O2 Delivery Room air 04/19 1105 B/P 119/56 04/19 0937 B/P Mean 76.8 04/19 0937 Pulse 69 / 0937 O2 Flow Rate 2 04/19 0800 Temp 36.5 04/19 0727 Resp 15 04/19 0727 FiO2 28 04/18 194 General appearance: alert, awake HEENT: atraumatic, normocephalic Neck: full range of motion, non-tender, supple/no meningismus, no JVD, no lymphadenopathy Cardiovascular: regular rate and rhythm Respiratory: clear to auscultation Abdomen: non-tender, normal bowel sounds, soft, no distention, no guarding, no mass/organomegaly, no rebound Extremities: moves all, normal capillary refill, no edema Musculoskeletal: full range of motion, normal inspection Neuro/STONE BREAKER: alert, oriented X 3 Ulcer: Type/cause: scab left foot. Results Findings/Data: Laboratory Tests 04/19/23 0330: [Embedded Image Not Available] Laboratory Tests 04/19 04/19 04/19 04/18 04/18 1111 [...] (Auto) (14.0 - 32.0 %) 12.6 L Grainger % (Auto) (4.8 - 9.0 %) 10.7 H Eos % (Auto) (0.3 - 3.7 %) 2.5 Baso % (Auto) (0.0 - 2.0 %) 0.6 Neut # (Auto) (2.0 - 7.6 x10 3/uL) 2.38 Lymph # (Auto) (1.0 - 3.8 x10 3/uL) 0.41 L Grainger # (Auto) (0.1 - 0.8 x10 3/uL) [...] (0.0 - 0.1 x10 3/uL) 0.00 Radiology data: Current Medications Sig/Yas Start time Last Medication Dose Route Stop Time Status Admin Apixaban 5 MG BID 04/18 2100 AC 04/19 PO 05/18 2059 0911 Metoprolol Tartrate 50 MG BID 04/18 2100 AC 04/19 PO 05/10 1359 0936 Amiodarone HCl 200 MG DAILY 04/14 09 AC 04/19 PO 05/14 0859 0911 Atorvastatin Calcium 40 MG 2100 04/09 2100 AC 04/18 PO 05/09 2059 2133 Lactulose 20 GM BID PRN PRN 04/09 [...] PRN PRN 04/08 1800 AC 04/13 PO 08/31 1759 2147 Ondansetron HCl 4 MG Q4H PRN PRN 04/08 1800 AC IV 05/08 1759 Dose Instructions: (1)Sterile Water: DRESSING CHANGE Results: labs reviewed, vital signs stable Diagnosis, Assessment Plan Free Text DxA P Notes Free Text DxA P Notes: ASSESSMENT: * Normocytic, hypochromic anemia. This seems to be an anemia of chronic disease. With iron panel being normal it is less likely to be GI blood loss. Considering his leukopenia I suspect that he may be developing underlying primary bone marrow disease such as MDS. * Recurrent pulmonary embolism based on intermediate probability VQ scan. * History of coronary artery disease, status post 2 coronary artery bypass graft surgery. PLAN: * Continues to have persistent normocytic, hypochromic anemia and leukopenia. Discussed with the patient that I am concerned that he may be developing any primary bone marrow disease such as MDS. Therefore have recommended a bone marrow aspiration and biopsy for further evaluation. He is agreeable to this plan. * Monitor CBC. * Patient may need to continue with anticoagulation considering benefits more than the risk. * Apparently his lower GI bleed is associated with constipation. * I will continue to follow. 04/16 Counts continue to be low. Bone marrow aspiration biopsy ordered, pending. Continue to follow. 04/17 Status post bone marrow aspiration and biopsy today. Counts remain low but stable. Await biopsy results. Continue with Eliquis for anticoagulation. Discussed with the patient that he needs to take that on a long-term basis. 04/18 Counts remain low but stable. Okay for discharge from hematology. Should continue with Eliquis for anticoagulation on a long-term basis. We will plan for outpatient follow-up in 1 week. 04/19 Has remained stable. Counts have remained stable as well. Okay for discharge from hematology. We will plan for outpatient follow-up. at 1511 RPT #:[id number] END OF REPORT [facility] 2023-04-19 08:50:00 [facility] Nephrology Progress Note REPORT#:[id number] REPORT STATUS: Signed DATE:04/19/23 TIME: 0850 PATIENT: TEVIN NYE UNIT #: [id number] ROOM[place]BED: [facility]17-1 : 51 AGE: 73 SEX: M ATTEND: Rojelio Magaña MD ADM AUTHOR: Monserrat Bobo MD * ALL edits or amendments must be made on the electronic/computer document * Subjective Chief complaint: Follow-up of acute renal failure, ATN/AIN Review of Systems Constitutional: Reports: generalized weakness. All systems rev neg: except as marked Objective General VS/I O: Vital Signs: Date Time Temp Pulse Resp [...] Weight (lb): Weight (oz): Weight (kg): 86.200 Medications Active Meds + DC'd Last 24 Hrs Apixaban (ELIQUIS 5MG TABLET) 5 MG BID PO Metoprolol Tartrate (LOPRESSOR) 50 MG BID PO Enoxaparin Sodium (lovENOX) 70 MG 0800,2000 SUBQ (DC) Amiodarone HCl (CORDARONE) 200 MG DAILY PO Metoprolol Tartrate (LOPRESSOR) 25 MG Q8HR PO (DC) Atorvastatin Calcium (LIPITOR) 40 MG 2100 PO Lactulose (LACTULOSE) 20 GM BID PRN PRN PO Miscellaneous Information ([facility] TO DOSE) 1 EACH ASDIR SUBQ ( DC) Sterile Water (WATER FOR IRRIGATION) DRESSING CHANGE [...] 4 MG Q4H PRN PRN IV Physical Exam General appearance: alert, awake, oriented Head/eyes: atraumatic, normocephalic ENT: moist mucous membranes Neck: supple/no meningismus, no JVD Cardiovascular: normal heart sounds, no rub Respiratory: aerating well, clear to auscultation, no distress Genitourinary: no bladder distention Extremities: no edema Ulcer: Type/cause: scab left foot. Results Findings/Data: Laboratory Tests 04/19 04/19 04/18 04/18 04/18 0730 [...] (Auto) (14.0 - 32.0 %) 12.6 L Grainger % (Auto) (4.8 - 9.0 %) 10.7 H Eos % (Auto) (0.3 - 3.7 %) 2.5 Baso % (Auto) (0.0 - 2.0 %) 0.6 Neut # (Auto) (2.0 - 7.6 x10 3/uL) 2.38 Lymph # (Auto) (1.0 - 3.8 x10 3/uL) 0.41 L Grainger # (Auto) (0.1 - 0.8 x10 3/uL) [...] 3/uL) 0.00 Diagnosis, Assessment Plan Free Text A P: Assessment/plan: 1. Acute renal failure most likely secondary to [...] occult blood-not sent yet, and iron studies reviewed- ok, transfuse as needed for hemoglobin less than 7. Hematology following, sp bone marrow biopsy at 9659 RPT #:[id number] END OF REPORT [facility] 2023-04-18 22:13:00 [facility]) Podiatry Progress Note REPORT#:[id number] REPORT STATUS: Signed DATE:04/18/23 TIME: 2213 PATIENT: TEVIN NYE UNIT #: [id number] ROOM/BED: [place] [address] : 52 AGE: 73 SEX: M ATTEND: Rojelio Magaña MD ADM AUTHOR: Andres Rachel DPM * ALL edits or amendments must be made on the electronic/computer document * Subjective Chief complaint: left foot ulcer Patient reports: no confusion, no diarrhea, no dizziness, no itching, no nausea Comments: pt very pleasant. doesnt have prevalon boots. is interested. dressing had fallen off of the foot. pt has pain. only takes tylenol. on exam: ulcer dorsal left forefoot with scabbing. dry peeling necrosis ulcer is getting smaller and smaller Objective General VS: Last Documented: Result Date Time Pulse Ox 96 04/18 1948 FiO2 28 04/18 1948 O2 Delivery Nasal cannula 04/18 1948 O2 Flow Rate 2 04/18 1948 B/P 173/55 04/18 1933 B/P Mean 94.1 04/18 1933 Temp 36.6 04/18 1933 Pulse 77 04/18 1933 Resp 16 04/18 1933 PATIENT WEIGHT: Weight (lb): Weight (oz): Weight (kg): 86.200 Medications: Active Meds + DC'd Last 24 Hrs Apixaban (ELIQUIS 5MG TABLET) 5 MG BID PO Metoprolol Tartrate (LOPRESSOR) 50 MG BID PO Enoxaparin Sodium (lovENOX) 70 MG 0800,2000 SUBQ (DC) Amiodarone HCl (CORDARONE) 200 MG DAILY PO Metoprolol Tartrate (LOPRESSOR) 25 MG Q8HR PO (DC) Atorvastatin Calcium (LIPITOR) 40 MG 2100 PO Lactulose (LACTULOSE) 20 GM BID PRN PRN PO Miscellaneous Information ([facility] 1 EACH ASDIR SUBQ ( DC) Sterile Water (WATER FOR IRRIGATION) DRESSING CHANGE [...] 4 MG Q4H PRN PRN IV I O: 24 hour I O ending at 0700: 04/18 0700 04/17 1900 Intake Total Output Total 200 Balance -200 Number Voids 1 Output, Urine 200 Dietitian nutrition assessment The data set between the solid lines has been imported from the dietitian's assessment. BMI Calculated: 29.8 Nutrition related diagnosis: Nutrition diagnosis details: Nutrition problem: Nutrition etiology: Nutrition signs and symptoms: Nutrition prescription: Dietitian name: Assessment completed: Physical Exam General appearance: alert, awake, oriented Wound/incision: Location: bilat foot Site condition: small pinpoint ulcer right foot. ulcer left forefoot dorsal. partial and full thickness. no erythema. no depth. LE vascular pulse assess: Nonpalpable R posterior tibialis, Nonpalpable L posterior tibialis, Nonpalpable R dorsalis pedis, Nonpalpable L dorsalis pedis Results Findings/Data: Laboratory Tests: 04/18 04/18 04/18 04/18 04/18 1931 1520 1051 0737 0731 Chemistry Sodium (134 - 147 mEq/L) 139 [...] (Auto) (14.0 - 32.0 %) 12.4 L Grainger % (Auto) (4.8 - 9.0 %) 9.7 H Eos % (Auto) (0.3 - 3.7 %) 1.9 Baso % (Auto) (0.0 - 2.0 %) 0.8 Neut # (Auto) (2.0 - 7.6 x10 3/uL) 2.75 Lymph # (Auto) (1.0 - 3.8 x10 3/uL) 0.46 L Grainger # (Auto) (0.1 - 0.8 x10 3/uL) 0.36 Eos # (Auto) (0.0 - 0.2 x10 3/uL) 0.07 Baso # (Auto) (0.0 - 0.2 x10 3/uL) 0.03 Abs Immat Gran (auto) (0.00 - 0.03 0.03 x10 3/uL) Add Manual Diff NO Immature Gran % (0.0 - 2.0 %) 0.8 Nucleated RBC % (0 - 0 %) 0.0 Nucleated RBCs # (Man) (0.0 - 0.1 0.00 x10 3/uL) Diagnosis, Assessment Plan Free Text A P: ulcer left foot. pain PVD ulcer is benign...starting to peel continue local wound care. no xray found. venous u/s neg NIAS: pvd as expected. rec'd to pt prevalon boots. covering for Dr. Washington at 2215 RPT #:[id number] END OF REPORT [facility] 2023-04-18 17:26:00 [facility] ([facility]) Avery/Oncology Progress Note REPORT#:[id number] REPORT STATUS: Signed DATE:04/18/23 TIME: 1726 PATIENT: TEVIN NYE UNIT #: [id number] ROOM/BED: [place] [address] : 51 AGE: 73 SEX: M ATTEND: Rojelio Magaña MD ADM AUTHOR: Dakota Arvizu MD * ALL edits or amendments must be made on the electronic/computer document * Subjective Chief Complaint: Doing better. Objective Physical Exam VS: Vital Signs Date Temp Pulse Resp B/P B/P [...] FiO2 28 04/17 2053 General appearance: alert, awake HEENT: atraumatic, normocephalic Neck: full range of motion, non-tender, supple/no meningismus, no JVD, no lymphadenopathy Cardiovascular: regular rate and rhythm Respiratory: clear to auscultation Abdomen: non-tender, normal bowel sounds, soft, no distention, no guarding, no mass/organomegaly, no rebound Extremities: moves all, normal capillary refill, no edema Musculoskeletal: full range of motion, normal inspection Neuro/STONE BREAKER: alert, oriented X 3 Ulcer: Type/cause: scab left foot. Results Findings/Data: Laboratory Tests 04/18/23 0737: [Embedded Image Not Available] Laboratory Tests 04/18 04/18 04/18 04/18 04/17 1520 1051 0737 0731 1922 Chemistry Sodium (134 [...] (Auto) (14.0 - 32.0 %) 12.4 L Grainger % (Auto) (4.8 - 9.0 %) 9.7 H Eos % (Auto) (0.3 - 3.7 %) 1.9 Baso % (Auto) (0.0 - 2.0 %) 0.8 Neut # (Auto) (2.0 - 7.6 x10 3/uL) 2.75 Lymph # (Auto) (1.0 - 3.8 x10 3/uL) 0.46 L Grainger # (Auto) (0.1 - 0.8 x10 3/uL) [...] (0.0 - 0.1 x10 3/uL) 0.00 Radiology data: Current Medications Sig/Yas Start time Last Medication Dose Route Stop Time Status Admin Apixaban 5 MG BID 04/18 2100 AC PO 05/18 2059 Metoprolol Tartrate 50 MG BID 04/18 2100 AC PO 05/10 1359 Enoxaparin Sodium 70 MG 799,04/15 DC 04/18 SUBQ 05/15 1959 1100 Amiodarone HCl 200 MG DAILY 04/14 09 AC 04/18 PO 05/14 0859 1045 Metoprolol Tartrate 25 MG Q8HR 04/10 1400 DC 04/18 PO 05/08 225 0514 Atorvastatin Calcium 40 MG 2100 04/09 2100 AC 04/17 PO 05/09 205 2212 Lactulose 20 GM BID PRN PRN [...] 04/08 1800 AC IV 05/08 175 Dose Instructions: (1)Sterile Water: DRESSING CHANGE Results: labs reviewed, vital signs stable Diagnosis, Assessment Plan Free Text DxA P Notes Free Text DxA P Notes: ASSESSMENT: * Normocytic, hypochromic anemia. This seems to be an anemia of chronic disease. With iron panel being normal it is less likely to be GI blood loss. Considering his leukopenia I suspect that he may be developing underlying primary bone marrow disease such as MDS. * Recurrent pulmonary embolism based on intermediate probability VQ scan. * History of coronary artery disease, status post 2 coronary artery bypass graft surgery. PLAN: * Continues to have persistent normocytic, hypochromic anemia and leukopenia. Discussed with the patient that I am concerned that he may be developing any primary bone marrow disease such as MDS. Therefore have recommended a bone marrow aspiration and biopsy for further evaluation. He is agreeable to this plan. * Monitor CBC. * Patient may need to continue with anticoagulation considering benefits more than the risk. * Apparently his lower GI bleed is associated with constipation. * I will continue to follow. 04/16 Counts continue to be low. Bone marrow aspiration biopsy ordered, pending. Continue to follow. 04/17 Status post bone marrow aspiration and biopsy today. Counts remain low but stable. Await biopsy results. Continue with Eliquis for anticoagulation. Discussed with the patient that he needs to take that on a long-term basis. 04/18 Counts remain low but stable. Okay for discharge from hematology. Should continue with Eliquis for anticoagulation on a long-term basis. We will plan for outpatient follow-up in 1 week. at 1727 RPT #:[id number] END OF REPORT [facility] 2023-04-18 14:43:00 [facility] Hospitalist Progress Note REPORT#:[id number] REPORT STATUS: Signed DATE:04/18/23 TIME: 1443 PATIENT: TEVIN NYE UNIT #: [id number] ROOM/BED: 55-1 : 51 AGE: 73 SEX: M ATTEND: Rojelio Magaña MD ADM AUTHOR: Rojelio Magaña MD * ALL edits or amendments must be made on the electronic/computer document * Subjective Chief complaint: No new complaints. ambulating Objective General VS/I O: Vital Signs: Date Time Temp Pulse Resp [...] (lb): Weight (oz): Weight (kg): 86.200 Physical Exam General appearance: alert, awake, oriented Head/Eyes: atraumatic, clear cornea, EOMI Neck: supple/no meningismus Cardiovascular: normal heart sounds, regular rate rhythm, no gallop, no murmur , no rub Respiratory: aerating well, clear to auscultation, symmetric expansion Abdomen: non-tender, normal bowel sounds, soft, no distention Extremities: no clubbing, no cyanosis, no edema Musculoskeletal: normal inspection, painless range of motion Neuro/STONE BREAKER: alert, oriented X 3, CNII-XII intact Skin: dry, intact Ulcer: Type/cause: scab left foot. Results Findings/Data: Laboratory Tests 04/18 04/18 04/18 04/17 1051 0737 [...] (Auto) (14.0 - 32.0 %) 12.4 L Grainger % (Auto) (4.8 - 9.0 %) 9.7 H Eos % (Auto) (0.3 - 3.7 %) 1.9 Baso % (Auto) (0.0 - 2.0 %) 0.8 Neut # (Auto) (2.0 - 7.6 x10 3/uL) 2.75 Lymph # (Auto) (1.0 - 3.8 x10 3/uL) 0.46 L Grainger # (Auto) (0.1 - 0.8 x10 3/uL) [...] Diagnosis, Assessment Plan Free Text DxA P Notes Free text DxA P notes: SOB (presumed PE) cardiology and pulmonary seen on 2.5 to 3 liters of oxygen per n/c echo wnl will give lasix twenty mg one time dose check chest xray 04/14- CXR on 04/13 was negative. pulmonary following. elevated D-dimer (presumed PE) V-Q scan with intermediate probability on therapeutic lovenox renally dosed for now 04/14- pulmonary following...worsening anemia, but guiaiac negaive anemia (pancytopenia) 04/14- hgb dropped to 8 today (9.7 two days ago). ask heme to see. h/o cancer. guiaiac negative. 04/15- hgb stable at 8. 04/16- hgb 7.3...bone marrow bx planned today? 04/17 - hgb 7.5. s/p BM bx today. results pending. JERAMY with CKD renal seen on IVF creat improving COPD on home oxygen h/o CAD s/p CABG X4 on 03/04/2023 CTS consulted and seen DM accuchecks and SSI prn check A1C BG controlled HTN bp controlled resumed home meds HLD on statin stable Prostate cancer s/p XRT pulmonary nodule 04/17 - need f/u in 3 months. Debility per PT/OT could be a post acute rehab candidate consulted rehab recommend IRF check labs in am f/up wiht DR. Rinaldi 04/14- awiaitng tranfer to rehab. folow h/h. ask heme to see. 04/15- h/h stable. cleared by GI to change lovenox to Eliquis if pulmonary wishes. 04/16- hgb 7.3. Bone marrow bx planned. 04/17 - s/p bm bx today. results pending. hgb 7.5. on full dose lovenox. change to Eliquis when ok with pulmonary. need outpt f/u for pulmonary nodule. Pt is contemplating going home if no approval for rehab. 04/18 - doing better, more likely too high level for rehab. Plan to d/c home tomorrow with HH if ok will all MD's. at 1445 RPT #:[id number] END OF REPORT [facility] 2023-04-18 14:38:00 [facility] ([facility] Cardiology Progress Note REPORT#:[id number] REPORT STATUS: Signed DATE:04/18/23 TIME: 1438 PATIENT: TEVIN NYE UNIT #: [id number] ROOM/BED: [place] [address] : 51 AGE: 73 SEX: M ATTEND: Rojelio Magaña MD ADM AUTHOR: Daniela Mari * ALL edits or amendments must be made on the electronic/computer document * Subjective Patient reports: No: complaints. Review of Systems Respiratory: Denies: SOB. Cardiovascular: Denies: chest pain, edema, orthopnea. Objective General VS/I O: 24 hour I O ending at 0700: 04/18 0700 04/17 1900 Intake Total Output Total 200 Balance -200 Number Voids 1 Output, Urine 200 Vital Signs: Date Time Temp Pulse Resp B/P B/P Pulse O2 O2 Flow FiO2 Mean Ox Delivery Rate 04/18 1050 36.7 76 15 147/55 85.9 97 Room air 04/18 0944 99 Nasal 2 cannula 04/18 0800 2 04/18 730 36.7 62 15 127/66 86.2 98 Room air 04/18 0401 36.5 85 16 116/63 80.6 97 04/18 0120 2 04/17 2246 36.4 78 14 109/52 70.7 98 04/173 95 Nasal 2 28 cannula 04/17 1924 36.7 74 14 119/59 79.1 97 04/17 1631 49 04/17 1600 36.8 37 15 136/52 80.1 96 Nasal cannula PATIENT WEIGHT: Weight (lb): Weight (oz): Weight (kg): 86.200 Medications: Active Meds + DC'd Last 24 Hrs Apixaban (ELIQUIS 5MG TABLET) 5 MG BID PO Enoxaparin Sodium (lovENOX) 70 MG 0800,2000 SUBQ (DC) Amiodarone HCl (CORDARONE) 200 MG DAILY PO Metoprolol Tartrate (LOPRESSOR) 25 MG Q8HR PO Atorvastatin Calcium (LIPITOR) 40 MG 2100 PO Lactulose (LACTULOSE) 20 GM BID PRN PRN PO Miscellaneous Information (LOVENOX PHARMACY TO DOSE) 1 EACH ASDIR SUBQ ( DC) Sterile Water (WATER FOR IRRIGATION) DRESSING CHANGE [...] 4 MG Q4H PRN PRN IV Physical Exam General appearance: alert, awake, oriented Neck: non-tender, no JVD Cardiovascular: CV assessment: ectopy, regular rate and rhythm Respiratory: decreased breath sounds, no distress Abdomen: soft, non-tender, normal bowel sounds, no distention Genitourinary: no flank pain, no urinary catheter Lower extremity: LE assessment: abnormal pedal pulse Musculoskeletal: normal inspection Neuro/STONE BREAKER: alert, oriented X 3, normal speech Skin: dry, intact Ulcer: Type/cause: scab left foot. Psychiatry: normal affect, normal judgment/insight, normal mood Results Findings/Data: Laboratory Tests 04/18 04/18 04/18 04/17 1051 0737 [...] (Auto) (14.0 - 32.0 %) 12.4 L Grainger % (Auto) (4.8 - 9.0 %) 9.7 H Eos % (Auto) (0.3 - 3.7 %) 1.9 Baso % (Auto) (0.0 - 2.0 %) 0.8 Neut # (Auto) (2.0 - 7.6 x10 3/uL) 2.75 Lymph # (Auto) (1.0 - 3.8 x10 3/uL) 0.46 L Grainger # (Auto) (0.1 - 0.8 x10 3/uL) [...] 3/uL) 0.00 Results: labs reviewed, vital signs reviewed Telemetry Interpretation: Sinus rhythm with PVCs Diagnosis, Assessment Plan Plan discussed with: patient, collaborating MD, nurse Free Text DxA P Notes Free Text DxA P Notes: 73 YO male with MHx of CAD s/p CABG less than 1 month ago, COPD, PE. He presents with generalized weakness and near syncope. Per family [...] d/t PE * Hx of PE, elevated D-dimer * Unable to CTA due to elevated creatinine * echocardiogram preserved LVEF * VQ suggestive of pulmonary embolism * On Eliquis 5 mg twice daily 2. CAD s/p CABG * stop Plavix, continue baby ASA plus AC of choice by pulmonology * continue BB and statin 3. JERAMY on CKD 2/2 volume depletion * creatinine trending down 3->2.9->2.4->1.9->1.3 * resume lisinopril when ok with nephrology * nephrology following 4. Left foot ulcer/abnormal arterial doppler * looks like the left foot wound is healing. In the event the left foot wound failed to heal then we will consider peripheral angiogram outpatient * podiatry following - wound benign per podiatry 5. Hx of COPD * pulmonary following 6. Acute Pulmonary embolism - recurrent * AC per pulmonology * LE venous doppler no DVT 7. PVCs * Multiple PVCs * continue amiodarone 200 mg daily and metoprolol * Replace low magnesium Overall doing well. Okay to discharge or transfer to rehab from cardiology standpoint Outpatient follow-up with Dr. Rinaldi MDM by Dr. Haynes. at 1443 at 1428 [facility] #:[id number] END OF REPORT [facility] 2023-04-18 14:19:00 [facility] Rehab Progress Note REPORT#:[id number] REPORT STATUS: Signed DATE:04/18/23 TIME: 1419 PATIENT: TEVIN NYE UNIT #: [id number] ROOM[place]BED: [facility] : 51 AGE: 73 SEX: M ATTEND: Rojelio Magaña MD ADM AUTHOR: Nicolasa Galeano PA-C * ALL edits or amendments must be made on the electronic/computer document * Subjective Chief complaint: S/P bone marrow Bx. He is up standing in his room IND brushing his teeth. Discussed DC home. He states he will think about it. Objective General VS: Vital Signs: Date Time Temp Pulse Resp [...] Weight (lb): Weight (oz): Weight (kg): 86.200 Medications: Active Meds + DC'd Last 24 Hrs Apixaban (ELIQUIS 5MG TABLET) 5 MG BID PO [...] 4 MG Q4H PRN PRN IV Functional Progress Functional progress: 1. One on one supervision with cueing [...] No Advanced Progression: No Effects of Treatment: Yoder of care decreased Circulation improved Gait quality improved Function Improved Post TX Precautions: FALL Review Plan of Care: Yes PT charges: Gait Training [id number] Gait Cmt: PATIENT WAS ABLE TO AMBULATE [...] Time: 1318 Stop Time: 1341 Treatment Time: ( minutes) 0:23 Completed by: Sebastian Harrison Conference/Supervising PT: Yes Supervising Therapist: [email or web address] Sebastian Harrison Reviewed and Approved By: SEBASTIAN HARRISON, PT . BED MOBILITY: Yes Rolling Right/Left: Independent Supine to Sit: Modified [place] Sit to Supine: Modified [place] Scooting in bed: Independent TRANSFERS: Yes Bed to/from chair: Supervision or Set-up Sit to/from stand: Supervision or Set-up CARDIO-RESPIRATORY IMPAIRMENT Items determined to be OUTSIDE the Functional Limits are as follows: Patient on Telemetry?: Yes Patient receiving Oxygen?: Yes Liters/min: 3 L Oxygen Saturation (%): 97 Post Treatment: 97 . Physical Exam General appearance: alert, awake Psych: alert, normal affect Neck: non-tender, supple Cardiovascular: regular rate rhythm, S1/S2 Respiratory: diminished breath sounds, aerating well Abdomen: bowel sounds present, soft, non-tender Ulcer: Type/cause: scab left foot. Musculoskeletal - general: Musculoskeletal - general: normal muscle mass Neuro/STONE BREAKER: alert, oriented X 3, CNII-XII intact, normal speech, no sensory deficits Results Findings/Data: Laboratory Tests: 04/18 04/18 04/18 04/17 1051 0737 [...] (Auto) (14.0 - 32.0 %) 12.4 L Grainger % (Auto) (4.8 - 9.0 %) 9.7 H Eos % (Auto) (0.3 - 3.7 %) 1.9 Baso % (Auto) (0.0 - 2.0 %) 0.8 Neut # (Auto) (2.0 - 7.6 x10 3/uL) 2.75 Lymph # (Auto) (1.0 - 3.8 x10 3/uL) 0.46 L Grainger # (Auto) (0.1 - 0.8 x10 3/uL) [...] 3/uL) 0.00 Diagnosis, Assessment Plan Free Text A P: 73 year old male with acute on chronic respiratory failure, elevated D-dimer, JERAMY on CKD, recent CABG and weakness. Continue with PT/OT. Recommend IRF placement for his ongoing medical and rehabilitation needs. He is willing to stay here at [facility]. 04/14: Continue with therapy as tolerated. Pending IRF transfer. Encouraged increased time EOB/OOB to build endurance, balance and strength. 04/15: Gi cleared to start on anticoagulation given PE carlosley. Cr stable and trending down. Hematology consulted due to leukopenia along with anemia. Pt noted with elevated retic count. ? may need bone marrow bx. PT/OT continued. OOB daily. 04/16: Planning for bone marrow bx. PT/OT. States improving gait. Hgb dropping. Today 7.3. Monitor when OOB. 04/17: Continue OOB daily and working with therapy. Hgb dropped. Bone marrow Bx today. Remains pancytopenic. 04/18: Making great progress. He is doing well up and moving. Discussed with him about DC home. Discussed with IM. OK to DC home with HH. Rehab attestation: Face to face exam completed. Treatment plan discussed with patient. at 1303 RPT #:[id number] END OF REPORT [facility] 2023-04-18 12:52:00 [facility] ([facility]) Pulmonology Progress Note REPORT#:[id number] REPORT STATUS: Signed DATE:04/18/23 TIME: 1252 PATIENT: TEVIN NYE UNIT #: [id number] ROOM/BED: [place] [address] : 51 AGE: 73 SEX: M ATTEND: Rojelio Magaña MD ADM AUTHOR: Sharmila Alan * ALL edits or amendments must be made on the electronic/computer document * Subjective Comments: On NC, no new complaints ROS All systems rev neg: except as marked Objective General VS/I O: Last Documented: Result Date Time Pulse Ox [...] Weight (lb): Weight (oz): Weight (kg): 86.200 Medications: Active Meds + DC'd Last 24 Hrs Apixaban (ELIQUIS 5MG TABLET) 5 MG BID PO (UNV) Enoxaparin Sodium (lovENOX) 70 MG 0800,2000 SUBQ (DCr) Amiodarone HCl (CORDARONE) 200 MG DAILY PO Metoprolol Tartrate (LOPRESSOR) 25 MG Q8HR PO Atorvastatin Calcium (LIPITOR) 40 MG 2100 PO Lactulose (LACTULOSE) 20 GM BID PRN PRN PO Miscellaneous Information (LOVENOX PHARMACY TO DOSE) 1 EACH ASDIR SUBQ ( DCr) Sterile Water (WATER FOR IRRIGATION) DRESSING CHANGE [...] 4 MG Q4H PRN PRN IV Physical Exam General appearance: alert, awake, oriented, no acute distress Head/eyes: atraumatic, normocephalic, PERRL, EOMI Neck: no JVD, no lymphadenopathy Cardiovascular: normal heart sounds, normal S1/S2, regular rate rhythm Respiratory/chest: decreased breath sounds, on oxygen, aerating well, symmetric expansion Abdomen: soft, no guarding Extremities: moves all, no clubbing, no cyanosis, no edema Neuro/STONE BREAKER: CNII-XII intact Skin: dry, intact Ulcer: Type/cause: scab left foot. Psychiatry: normal affect, normal judgment/insight, normal mood Results Findings/Data: Laboratory Tests 04/18/23 0737: [Embedded Image Not Available] Laboratory Tests 04/18 04/18 04/18 04/17 1051 0737 [...] (Auto) (14.0 - 32.0 %) 12.4 L Grainger % (Auto) (4.8 - 9.0 %) 9.7 H Eos % (Auto) (0.3 - 3.7 %) 1.9 Baso % (Auto) (0.0 - 2.0 %) 0.8 Neut # (Auto) (2.0 - 7.6 x10 3/uL) 2.75 Lymph # (Auto) (1.0 - 3.8 x10 3/uL) 0.46 L Grainger # (Auto) (0.1 - 0.8 x10 3/uL) [...] 3/uL) 0.00 Diagnosis, Assessment Plan Free Text A P: Acute on chronic hypoxemic respiratory failure supplemental O2 as needed and wean as tolerated Pulmonary embolism Initially diagnosed in November 2022 at outside hospital; was on Eliquis from diagnosis through February. CTA chest 03/03/2023 was negative for pulmonary embolism. Patient was discharged home 03/13/2023 and told to discontinue taking Eliquis. -D-dimer 1496. -VQ scan with intermediate probability. 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 Check bilateral lower extremity Dopplers -> neg -Renally dose lovenox @ 1mg/kg once daily -d/w cardio. will ultimately AC with eliquis ASA. Off plavix. COPD No exacerbation. On Combivent and ipratropium nebs at home. -May need repeat pulmonary function test outpatient. 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 1.5 x 0.8 cm nodular opacity in RLL needs follow-up in 3 months CAD / PAD S/p CABG 03/04/2023 Cardiothoracic surgery following Echo noted JERAMY/CKD Nephrology consult Strict I O. Measure UOP. 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 S/P BMB per Heme PT/OT Rehab eval - Heme recs noted. Switch to Eliquis at 1254 RPT #:[id number] END OF REPORT [facility] 2023-04-18 12:23:00 [facility] ([facility]) Gastroenterology Progress Note REPORT#:[id number] REPORT STATUS: Signed DATE:04/18/23 TIME: 1223 PATIENT: TEVIN NYE UNIT #: [id number] ROOM/BED: [place] [address] : 51 AGE: 73 SEX: M ATTEND: Rojelio Magaña MD ADM AUTHOR: Clint Roman * ALL edits or amendments must be made on the electronic/computer document * Clint Roamn 04/18/23 1223: Subjective Comments: tolerating po. no nausea, vomiting, or abdominal pain. denies rectal bleeding Review of Systems Additional notes: 10 point ros neg except hpi Objective General VS/I O: Last Documented: Result Date Time Pulse Ox [...] Weight (lb): Weight (oz): Weight (kg): 86.200 Medications: Active Meds + DC'd Last 24 Hrs Enoxaparin Sodium (lovENOX) 70 MG 0800,1999 SUBQ Amiodarone HCl (CORDARONE) 200 MG DAILY PO Metoprolol Tartrate (LOPRESSOR) 25 MG Q8HR PO Atorvastatin Calcium (LIPITOR) 40 MG 2100 PO Lactulose (LACTULOSE) 20 GM BID PRN PRN PO Miscellaneous Information (LOVENOX PHARMACY TO DOSE) 1 EACH ASDIR SUBQ ( CKD) Sterile Water (WATER FOR IRRIGATION) DRESSING CHANGE [...] 4 MG Q4H PRN PRN IV Physical Exam General appearance: alert, awake HEENT: atraumatic, normocephalic Neck: decreased range of motion Cardiovascular: normal capillary refill, regular rate rhythm Respiratory: no distress, on oxygen Abdomen: non-tender, soft, no distention Extremities: decreased range of motion Neuro/STONE BREAKER: alert, oriented X 3 Skin: dry, intact Ulcer: Type/cause: scab left foot. Psychiatry: normal affect, normal judgment/insight Results Findings/Data: Laboratory Tests 04/18/23 0737: [Embedded Image Not Available] Laboratory Tests 04/18 04/18 04/18 04/17 1051 0737 [...] (Auto) (14.0 - 32.0 %) 12.4 L Grainger % (Auto) (4.8 - 9.0 %) 9.7 H Eos % (Auto) (0.3 - 3.7 %) 1.9 Baso % (Auto) (0.0 - 2.0 %) 0.8 Neut # (Auto) (2.0 - 7.6 x10 3/uL) 2.75 Lymph # (Auto) (1.0 - 3.8 x10 3/uL) 0.46 L Grainger # (Auto) (0.1 - 0.8 x10 3/uL) [...] 3/uL) 0.00 Diagnosis, Assessment Plan Free Text A P: Assessment dyspnea on exertion PE, on lovenox hx of prostate cancer, s/p radiation therapy pancytopenia rectal bleeding, mild, resolved 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 Plan: - monitor h/h, transfuse as needed - monitor for further bleeding - diet as tolerated - bone marrow biopsy results pending - switched to eliquis for PE Roberto Galeano 04/18/23 1549: Attestations Physician Attestation Agree w/findings plan: Agree with the findings and plan as documented by Abel PRITCHARD; at 1415 at 1549 RPT #:[id number] END OF REPORT [facility] 2023-04-18 08:08:00 [facility] Nephrology Progress Note REPORT#:[id number] REPORT STATUS: Signed DATE:04/18/23 TIME: 807 PATIENT: TEVIN NYE UNIT #: [id number] ROOM/BED: [place] [address] : 51 AGE: 73 SEX: M ATTEND: Rojelio Magaña MD ADM AUTHOR: Glendy Paz MD * ALL edits or amendments must be made on the electronic/computer document * Subjective Chief complaint: Follow-up of acute renal failure, ATN/AIN Comments: Doing well, no complaint. Objective General VS/I O: Vital Signs: Date Time Temp Pulse Resp B/P B/P Pulse O2 O2 Flow FiO2 Mean Ox Delivery Rate 04/18 0730 98.1 62 15 127/66 86.2 [...] Weight (lb): Weight (oz): Weight (kg): 86.200 Medications Active Meds + DC'd Last 24 Hrs Fentanyl Citrate (SUBLIMAZE) 0 .STK-MED ONE IV [...] PHARMACY TO DOSE) 1 EACH ASDIR SUBQ ( CKD) Sterile Water (WATER FOR IRRIGATION) DRESSING CHANGE [...] 4 MG Q4H PRN PRN IV Physical Exam General appearance: alert, awake, oriented Head/eyes: atraumatic, normocephalic ENT: moist mucous membranes Neck: supple/no meningismus, no JVD Cardiovascular: normal heart sounds, no rub Respiratory: aerating well, clear to auscultation, no distress Genitourinary: no bladder distention Extremities: no edema Ulcer: Type/cause: scab left foot. Results Findings/Data: Laboratory Tests 04/17 04/17 04/17 1922 1150 1149 Chemistry POC Glucose (70 - 110 MG/DL) 203 H 175 H 177 H Radiology data: Recent Impressions: CAT SCAN - CT GUID NDL [facility] (Biopsy/Asp) 04/17 1035 Report Impression - Status: SIGNED Entered: 04/17/2023 1128 IMPRESSION: CT-guided bone marrow aspiration and core biopsy. Impression By: BuckPKCharles Croft M.D. Diagnosis, Assessment Plan Free Text A P: Assessment/plan: 1. Acute renal failure most likely secondary to [...] occult blood-not sent yet, and iron studies reviewed- ok, transfuse as needed for hemoglobin less than 7. Hematology following, sp bone marrow biopsy pending rehab. stable from nephrology for discharge. at 1039 RPT #:[id number] END OF REPORT [facility] 2023-04-17 23:01:00 [facility] Avery/Oncology Progress Note REPORT#:[id number] REPORT STATUS: Signed DATE:04/17/23 TIME: 2300 PATIENT: TEVIN NYE UNIT #: [id number] ROOM/BED: [place] [id number] : 51 AGE: 73 SEX: M ATTEND: Pablo Kumar MD ADM AUTHOR: Dakota Arvizu MD * ALL edits or amendments must be made on the electronic/computer document * Subjective Chief Complaint: Status post bone marrow aspiration and biopsy today. Objective Physical Exam VS: Vital Signs Date Temp Pulse Resp B/P B/P [...] Rate 2 04/17 2053 General appearance: alert, awake HEENT: atraumatic, normocephalic Neck: full range of motion, non-tender, supple/no meningismus, no JVD, no lymphadenopathy Cardiovascular: regular rate and rhythm Respiratory: clear to auscultation Abdomen: non-tender, normal bowel sounds, soft, no distention, no guarding, no mass/organomegaly, no rebound Extremities: moves all, normal capillary refill, no edema Musculoskeletal: full range of motion, normal inspection Neuro/STONE BREAKER: alert, oriented X 3 Ulcer: Type/cause: scab left foot. Results Findings/Data: Laboratory Tests 04/17/23721: [Embedded Image Not Available] Laboratory Tests 04/17 1150 1149 0722 0713 Chemistry [...] (Auto) (14.0 - 32.0 %) 12.8 L Grainger % (Auto) (4.8 - 9.0 %) 9.8 H Eos % (Auto) (0.3 - 3.7 %) 1.6 Baso % (Auto) (0.0 - 2.0 %) 1.0 Neut # (Auto) (2.0 - 7.6 x10 3/uL) 2.25 Lymph # (Auto) (1.0 - 3.8 x10 3/uL) 0.39 L Grainger # (Auto) (0.1 - 0.8 x10 3/uL) [...] (0.0 - 0.1 x10 3/uL) 0.00 Radiology data: Current Medications Sig/Yas Start time Last Medication [...] 2140 Amiodarone HCl 200 MG DAILY 04/14 0900 AC 04/16 PO 05/14 0859 0902 Metoprolol [...] 04/09 0000 AC 04/17 NEB 05/09 0000 2053 Tamsulosin HCl 0.8 MG BEDTIME 04/08 2300 AC 04/17 PO 05/08 2259 2212 Acetaminophen 650 MG Q4H PRN PRN 04/08 1800 AC 04/13 PO 05/08 1759 2147 Ondansetron HCl 4 MG Q4H PRN PRN / 1800 AC IV 05/08 1759 Dose Instructions: (1)Sterile Water: DRESSING CHANGE Recent Impressions: CAT SCAN - [facility] GUID [facility] (Biopsy/Asp) 04/17 1035 Report Impression - Status: SIGNED Entered: 04/17/2023 1128 IMPRESSION: CT-guided bone marrow aspiration and core biopsy. Impression By: BuckPKCharles Croft M.D. Results: labs reviewed, vital signs stable Diagnosis, Assessment Plan Free Text DxA P Notes Free Text DxA P Notes: ASSESSMENT: * Normocytic, hypochromic anemia. This seems to be an anemia of chronic disease. With iron panel being normal it is less likely to be GI blood loss. Considering his leukopenia I suspect that he may be developing underlying primary bone marrow disease such as MDS. * Recurrent pulmonary embolism based on intermediate probability VQ scan. * History of coronary artery disease, status post 2 coronary artery bypass graft surgery. PLAN: * Continues to have persistent normocytic, hypochromic anemia and leukopenia. Discussed with the patient that I am concerned that he may be developing any primary bone marrow disease such as MDS. Therefore have recommended a bone marrow aspiration and biopsy for further evaluation. He is agreeable to this plan. * Monitor CBC. * Patient may need to continue with anticoagulation considering benefits more than the risk. * Apparently his lower GI bleed is associated with constipation. * I will continue to follow. 04/16 Counts continue to be low. Bone marrow aspiration biopsy ordered, pending. Continue to follow. 04/17 Status post bone marrow aspiration and biopsy today. Counts remain low but stable. Await biopsy results. Continue with Eliquis for anticoagulation. Discussed with the patient that he needs to take that on a long-term basis. at 2305 RPT #:[id number] END OF REPORT [facility] 2023-04-17 22:52:00 [facility] Podiatry Progress Note REPORT#:[id number] REPORT STATUS: Signed DATE:04/17/23 TIME: 2251 PATIENT: TEVIN NYE UNIT #: [id number] ROOM/BED: [place] [id number] : 51 AGE: 73 SEX: M ATTEND: Pablo Kumar MD ADM AUTHOR: Andres Rachel DPM * ALL edits or amendments must be made on the electronic/computer document * Subjective Chief complaint: left foot ulcer Patient reports: no dizziness, no fatigue, no headache, no itching Comments: pt very pleasant. doesnt have prevalon boots. is interested. dressing had fallen off of the foot. pt has pain. only takes tylenol. on exam: ulcer dorsal left forefoot with scabbing. dry peeling necrosis Objective General VS: Last Documented: Result Date Time Pulse Ox 98 04/17 2246 B/P 109/52 04/17 2246 B/P Mean 70.7 04/17 2246 Temp 36.4 08/10 2246 Pulse 78 04/17 2246 Resp 14 04/17 2246 FiO2 28 04/17 2053 O2 Delivery Nasal cannula 04/17 2053 O2 Flow Rate 2 04/17 2053 PATIENT WEIGHT: Weight (lb): Weight (oz): Weight (kg): 86.200 Medications: Active Meds + DC'd Last 24 Hrs Fentanyl Citrate (SUBLIMAZE) 0 .STK-MED ONE IV [...] PHARMACY TO DOSE) 1 EACH ASDIR SUBQ ( CKD) Sterile Water (WATER FOR IRRIGATION) DRESSING CHANGE [...] 4 MG Q4H PRN PRN IV I O: 24 hour I O ending at 0700: 04/17 0700 04/16 1900 Intake Total Output Total 400 Balance -400 Output, Urine 400 Physical Exam General appearance: alert, awake, oriented Wound/incision: Location: bilat foot Site condition: small pinpoint ulcer right foot. ulcer left forefoot dorsal. partial and full thickness. no erythema. no depth. LE vascular pulse assess: Nonpalpable R posterior tibialis, Nonpalpable L posterior tibialis, Nonpalpable R dorsalis pedis, Nonpalpable L dorsalis pedis Results Findings/Data: Laboratory Tests: 04/17 04/17 04/17 04/17 1922 1150 1149 0722 Chemistry Sodium (134 - 147 mEq/L) 137 [...] 177 H Calcium (8.0 - 10.5 mg/dL) 8.0 Hematology WBC (4.5 - 11.0 x10 3/uL) [...] (Auto) (14.0 - 32.0 %) 12.8 L Grainger % (Auto) (4.8 - 9.0 %) 9.8 H Eos % (Auto) (0.3 - 3.7 %) 1.6 Baso % (Auto) (0.0 - 2.0 %) 1.0 Neut # (Auto) (2.0 - 7.6 x10 3/uL) 2.25 Lymph # (Auto) (1.0 - 3.8 x10 3/uL) 0.39 L Grainger # (Auto) (0.1 - 0.8 x10 3/uL) [...] (70 - 110 MG/DL) 180 H Recent Impressions: CAT SCAN - CT GUID NDL [facility] (Biopsy/Asp) 04/17 1035 Report Impression - Status: SIGNED Entered: 04/17/2023 1128 IMPRESSION: CT-guided bone marrow aspiration and core biopsy. Impression By: [email or web address] Og Croft M.D. Diagnosis, Assessment Plan Free Text A P: ulcer left foot. pain PVD ulcer is benign...starting to peel continue local wound care. no xray found. venous u/s neg NIAS: pvd as expected. rec'd to pt prevalon boots. covering for Dr. Washington at 2254 RPT #:[id number] END OF REPORT [facility] 2023-04-17 17:59:00 [facility]) Pulmonology Progress Note REPORT#:[id number] REPORT STATUS: Signed DATE:04/17/23 TIME: 175 PATIENT: TEVIN NYE UNIT #: [id number] ROOM/BED: [place] [id number] : [birth year] AGE: 73 SEX: M ATTEND: Pablo Kumar MD ADM AUTHOR: Sharmila Alan * ALL edits or amendments must be made on the electronic/computer document * Subjective Comments: On room air, feels better, no new complaints ROS All systems rev neg: except as marked Objective General VS/I O: Last Documented: Result Date Time Pulse 49 04/17 [...] Weight (lb): Weight (oz): Weight (kg): 86.200 Medications: Active Meds + DC'd Last 24 Hrs Fentanyl Citrate (SUBLIMAZE) 0 .STK-MED ONE IV [...] PHARMACY TO DOSE) 1 EACH ASDIR SUBQ ( CKD) Sterile Water (WATER FOR IRRIGATION) DRESSING CHANGE [...] 4 MG Q4H PRN PRN IV Physical Exam General appearance: alert, awake, oriented, no acute distress Head/eyes: atraumatic, normocephalic, PERRL, EOMI Neck: no JVD, no lymphadenopathy Cardiovascular: normal heart sounds, normal S1/S2, regular rate rhythm Respiratory/chest: decreased breath sounds, on oxygen, aerating well, symmetric expansion Abdomen: soft, no guarding Extremities: moves all, no clubbing, no cyanosis, no edema Neuro/STONE BREAKER: CNII-XII intact Skin: dry, intact Ulcer: Type/cause: scab left foot. Psychiatry: normal affect, normal judgment/insight, normal mood Results Findings/Data: Laboratory Tests 04/17/23721: [Embedded Image Not Available] Laboratory Tests 04/17 04/17 04/17 04/17 04/16 1150 1149 0722 0713 2028 Chemistry Sodium (134 - 147 mEq/L) 137 [...] (Auto) (14.0 - 32.0 %) 12.8 L Grainger % (Auto) (4.8 - 9.0 %) 9.8 H Eos % (Auto) (0.3 - 3.7 %) 1.6 Baso % (Auto) (0.0 - 2.0 %) 1.0 Neut # (Auto) (2.0 - 7.6 x10 3/uL) 2.25 Lymph # (Auto) (1.0 - 3.8 x10 3/uL) 0.39 L Grainger # (Auto) (0.1 - 0.8 x10 3/uL) [...] (0.0 - 0.1 x10 3/uL) 0.00 Radiology data: Recent Impressions: CAT SCAN - CT GUID NDL [facility] (Biopsy/Asp) 04/17 1035 Report Impression - Status: SIGNED Entered: 04/17/2023 1128 IMPRESSION: CT-guided bone marrow aspiration and core biopsy. Impression By: [email or web address] Og Croft M.D. Diagnosis, Assessment Plan Free Text A P: Acute on chronic hypoxemic respiratory failure supplemental O2 as needed and wean as tolerated Pulmonary embolism Initially diagnosed in November 2022 at outside hospital; was on Eliquis from diagnosis through February. CTA chest 03/03/2023 was negative for pulmonary embolism. Patient was discharged home 03/13/2023 and told to discontinue taking Eliquis. -D-dimer 1496. -VQ scan with intermediate probability. 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 Check bilateral lower extremity Dopplers -> neg -Renally dose lovenox @ 1mg/kg once daily -d/w cardio. will ultimately AC with eliquis ASA. Off plavix. Continue lovenox for now. COPD No exacerbation. On Combivent and ipratropium nebs at home. -May need repeat pulmonary function test outpatient. 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 1.5 x 0.8 cm nodular opacity in RLL needs follow-up in 3 months CAD / PAD S/p CABG 03/04/2023 Cardiothoracic surgery following Echo noted JERAMY/CKD Nephrology consult Strict I O. Measure UOP. 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 S/P BMB per Heme PT/OT Rehab eval at 1801 RPT #:[id number] END OF REPORT [facility] 2023-04-17 14:41:00 [facility] ([facility] Hospitalist Progress Note REPORT#:[id number] REPORT STATUS: Signed DATE:04/17/23 TIME: 1441 PATIENT: TEVIN NYE UNIT #: [id number] ROOM/BED: [place] [id number] : 51 AGE: 73 SEX: M ATTEND: Pablo Kumar MD ADM AUTHOR: Pablo Kumar MD * ALL edits or amendments must be made on the electronic/computer document * Subjective Chief complaint: s/p CT guided bm bx today. no major c/o. no cp. no sob. Objective General VS/I O: Vital Signs: Date Time Temp Pulse Resp [...] (lb): Weight (oz): Weight (kg): 86.200 Physical Exam General appearance: alert, awake Head/Eyes: atraumatic, clear cornea, EOMI Neck: supple/no meningismus Cardiovascular: normal heart sounds, regular rate rhythm, no gallop, no murmur , no rub Respiratory: aerating well, clear to auscultation, symmetric expansion Abdomen: non-tender, normal bowel sounds, soft, no distention Extremities: no clubbing, no cyanosis, no edema Musculoskeletal: normal inspection, painless range of motion Neuro/STONE BREAKER: alert, oriented X 3, CNII-XII intact Skin: dry, intact Ulcer: Type/cause: scab left foot. Results Radiology data: Laboratory Tests 04/17/23 0722: [Embedded Image Not Available] 04/16/23 0643: [Embedded Image Not Available] Current Medications Sig/Yas Start [...] 04/17 IV 1025 Enoxaparin Sodium 70 MG 799,04/15 AC 04/16 SUBQ 05/15 1959 2140 Amiodarone [...] 04/08 1800 AC IV 05/08 1759 Dose Instructions: (1)Sterile Water: DRESSING CHANGE Laboratory Tests: 04/17 04/17 04/17 04/17 04/16 1150 1149 0722 0713 2028 Chemistry Sodium (134 - 147 mEq/L) 137 [...] H Calcium (8.0 - 10.5 mg/dL) 8.0 Hematology WBC (4.5 - 11.0 x10 3/uL) [...] (Auto) (14.0 - 32.0 %) 12.8 L Grainger % (Auto) (4.8 - 9.0 %) 9.8 H Eos % (Auto) (0.3 - 3.7 %) 1.6 Baso % (Auto) (0.0 - 2.0 %) 1.0 Neut # (Auto) (2.0 - 7.6 x10 3/uL) 2.25 Lymph # (Auto) (1.0 - 3.8 x10 3/uL) 0.39 L Grainger # (Auto) (0.1 - 0.8 x10 3/uL) 0.30 Eos # (Auto) (0.0 - 0.2 x10 3/uL) 0.05 Baso # (Auto) (0.0 - 0.2 x10 3/uL) 0.03 Abs Immat Gran (auto) (0.00 - 0.03 0.03 x10 3/uL) Add Manual Diff NO Immature Gran % (0.0 - 2.0 %) 1.0 Nucleated RBC % (0 - 0 %) 0.0 Nucleated RBCs # (Man) (0.0 - 0.1 0.00 x10 3/uL) 04/16 1621 Chemistry POC Glucose (70 - 110 MG/DL) 180 H Recent Impressions: CAT SCAN - CT GUID NDL [facility] (Biopsy/Asp) 04/17 1035 Report Impression - Status: SIGNED Entered: 04/17/2023 1128 IMPRESSION: CT-guided bone marrow aspiration and core biopsy. Impression By: BuckPKCharles Croft M.D. Diagnosis, Assessment Plan Free Text DxA P Notes Free text DxA P notes: SOB (presumed PE) cardiology and pulmonary seen on 2.5 to 3 liters of oxygen per n/c echo wnl will give lasix twenty mg one time dose check chest xray 04/14- CXR on 04/13 was negative. pulmonary following. elevated D-dimer (presumed PE) V-Q scan with intermediate probability on therapeutic lovenox renally dosed for now 04/14- pulmonary following...worsening anemia, but guiaiac negaive anemia (pancytopenia) 04/14- hgb dropped to 8 today (9.7 two days ago). ask heme to see. h/o cancer. guiaiac negative. 04/15- hgb stable at 8. 04/16- hgb 7.3...bone marrow bx planned today? 04/17 - hgb 7.5. s/p BM bx today. results pending. JERAMY with CKD renal seen on IVF creat improving COPD on home oxygen h/o CAD s/p CABG X4 on 03/04/2023 CTS consulted and seen DM accuchecks and SSI prn check A1C BG controlled HTN bp controlled resumed home meds HLD on statin stable Prostate cancer s/p XRT pulmonary nodule 04/17 - need f/u in 3 months. Debility per PT/OT could be a post acute rehab candidate consulted rehab recommend IRF check labs in am f/up wiht DR. Rinaldi 04/14- awiaitng tranfer to rehab. folow h/h. ask heme to see. 04/15- h/h stable. cleared by GI to change lovenox to Eliquis if pulmonary wishes. 04/16- hgb 7.3. Bone marrow bx planned. 04/17 - s/p bm bx today. results pending. hgb 7.5. on full dose lovenox. change to Eliquis when ok with pulmonary. need outpt f/u for pulmonary nodule. Pt is contemplating going home if no approval for rehab. at 1446 RPT #:[id number] END OF REPORT [facility] 2023-04-17 11:38:00 [facility] ([facility] Nephrology Progress Note REPORT#:[id number] REPORT STATUS: Signed DATE:04/17/23 TIME: 1138 PATIENT: TEVIN NYE UNIT #: [id number] ROOM/BED: [place] [id number] : 51 AGE: 73 SEX: M ATTEND: Pablo Kumar MD ADM AUTHOR: Glendy Paz MD * ALL edits or amendments must be made on the electronic/computer document * Subjective Chief complaint: Follow-up of acute renal failure, ATN/AIN Comments: Status post bone marrow biopsy Objective General VS/I O: Vital Signs: Date Time Temp Pulse Resp [...] Weight (lb): Weight (oz): Weight (kg): 86.200 Medications Active Meds + DC'd Last 24 Hrs Fentanyl Citrate (SUBLIMAZE) 0 .STK-MED ONE .ROUTE [...] PHARMACY TO DOSE) 1 EACH ASDIR SUBQ ( CKD) Sterile Water (WATER FOR IRRIGATION) DRESSING CHANGE [...] 4 MG Q4H PRN PRN IV Physical Exam General appearance: sleeping comfortably Head/eyes: atraumatic, normocephalic ENT: moist mucous membranes Neck: supple/no meningismus, no JVD Cardiovascular: normal heart sounds, no rub Respiratory: aerating well, clear to auscultation, no distress Genitourinary: no bladder distention Extremities: no edema Ulcer: Type/cause: scab left foot. Results Findings/Data: Laboratory Tests 04/17 0713 2028 1621 Chemistry Sodium [...] (Auto) (14.0 - 32.0 %) 12.8 L Grainger % (Auto) (4.8 - 9.0 %) 9.8 H Eos % (Auto) (0.3 - 3.7 %) 1.6 Baso % (Auto) (0.0 - 2.0 %) 1.0 Neut # (Auto) (2.0 - 7.6 x10 3/uL) 2.25 Lymph # (Auto) (1.0 - 3.8 x10 3/uL) 0.39 L Grainger # (Auto) (0.1 - 0.8 x10 3/uL) [...] (0.0 - 0.1 x10 3/uL) 0.00 Radiology data: Recent Impressions: CAT SCAN - [facility] GUID [facility] (Biopsy/Asp) 04/17 1035 Report Impression - Status: SIGNED Entered: 04/17/2023 1128 IMPRESSION: CT-guided bone marrow aspiration and core biopsy. Impression By: BuckPKCharles Croft M.D. Diagnosis, Assessment Plan Free Text A P: Assessment/plan: 1. Acute renal failure most likely secondary to volume depletion, overdiuresis and ATN/AIN with Bactrim and lisinopril on board. Cr further better 2.9-2.4-1.9 > 1.2 >1.3>1.4, stable today, renal sono without hydronephrosis. Likely has underlying CKD. 2. Coronary artery disease: Status post CABG, continue home medications 3. COPD: Symptomatic treatment 4. History of prostate cancer, s/p radiation 2021 5. Anemia: Requested stool occult blood-not sent yet, and iron studies reviewed- ok, transfuse as needed for hemoglobin less than 7. Hematology following, sp bone marrow biopsy pending rehab. stable from nephrology for discharge. at 1421 RPT #:[id number] END OF REPORT [facility] 2023-04-17 11:27:00 [facility] ([facility]) Gastroenterology Progress Note REPORT#:[id number] REPORT STATUS: Signed DATE:04/17/23 TIME: 1127 PATIENT: TVEIN NYE UNIT #: [id number] ROOM/BED: [place] [id number] : [birth year] AGE: 73 SEX: M ATTEND: Pablo Kumar MD ADM AUTHOR: Roberto Galeano MD * ALL edits or amendments must be made on the electronic/computer document * Subjective Comments: no bleeding Review of Systems Additional notes: 10 point ros neg except hpi Objective General VS/I O: Last Documented: Result Date Time O2 Delivery Nasal cannula 04/17 1029 O2 Flow Rate 2 04/17 1029 Pulse Ox 94 04/17 0730 B/P 125/56 04/17 0712 B/P Mean 79.3 04/17 0712 Temp 36.5 04/17 0712 Pulse 52 04/17 0712 Resp 15 04/17 0712 FiO2 28 08/03 0800 24 hour I O ending at 0700: 04/17 0700 04/16 1900 Intake Total Output Total 400 Balance -400 Output, Urine 400 PATIENT WEIGHT: Weight (lb): Weight (oz): Weight (kg): 86.200 Medications: Active Meds + DC'd Last 24 Hrs Fentanyl Citrate (SUBLIMAZE) 0 .STK-MED ONE .ROUTE [...] GM BID PRN PRN PO Miscellaneous Information ([place] PHARMACY TO DOSE) 1 EACH ASDIR SUBQ ( CKD) Sterile Water (WATER FOR IRRIGATION) DRESSING CHANGE [...] 4 MG Q4H PRN PRN IV Physical Exam General appearance: alert, awake HEENT: atraumatic, normocephalic Neck: decreased range of motion Cardiovascular: normal capillary refill, regular rate rhythm Respiratory: no distress, on oxygen Abdomen: non-tender, soft, no distention Extremities: decreased range of motion Neuro/STONE BREAKER: alert, oriented X 3 Skin: dry, intact Ulcer: Type/cause: scab left foot. Psychiatry: normal affect, normal judgment/insight Results Findings/Data: Laboratory Tests 04/17/23 07: [Embedded Image Not Available] Laboratory Tests 04/17 0713 2029 1621 Chemistry Sodium (134 - [...] - 10.5 mg/dL) 8.0 Laboratory Tests 04/17 07 Hematology WBC (4.5 - 11.0 x10 3/uL) [...] (Auto) (14.0 - 32.0 %) 12.8 L Grainger % (Auto) (4.8 - 9.0 %) 9.8 H Eos % (Auto) (0.3 - 3.7 %) 1.6 Baso % (Auto) (0.0 - 2.0 %) 1.0 Neut # (Auto) (2.0 - 7.6 x10 3/uL) 2.25 Lymph # (Auto) (1.0 - 3.8 x10 3/uL) 0.39 L Grainger # (Auto) (0.1 - 0.8 x10 3/uL) [...] 3/uL) 0.00 Diagnosis, Assessment Plan Free Text A P: Assessment dyspnea on exertion PE, on lovenox hx of prostate cancer, s/p radiation therapy pancytopenia rectal bleeding, mild, resolved 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 No acute distress.He is bed. Today he is to get a bone marrow bx. States not sure what time. NPO. Objective General VS: Vital Signs: Date Time Temp Pulse Resp [...] Weight (lb): Weight (oz): Weight (kg): 86.200 Medications: Active Meds + DC'd Last 24 Hrs Enoxaparin Sodium (lovENOX) 70 MG 0800,2000 SUBQ Amiodarone HCl (CORDARONE) 200 MG DAILY PO Metoprolol Tartrate (LOPRESSOR) 25 MG Q8HR PO Atorvastatin Calcium (LIPITOR) 40 MG 2100 PO Lactulose (LACTULOSE) 20 GM BID PRN PRN PO Miscellaneous Information (LOVENOX PHARMACY TO DOSE) 1 EACH ASDIR SUBQ ( CKD) Sterile Water (WATER FOR IRRIGATION) DRESSING CHANGE [...] 4 MG Q4H PRN PRN IV Functional Progress Functional progress: GAIT TRAINING 1. Medical Record reviewed. [...] FORWARD Antalgic Gait Left Effects of Treatment: [place]oder of care decreased Circulation improved Gait quality improved Function Improved Post [place] Precautions: FALL WC TO FOLLOW Review Plan of Care: Yes PT charges: Gait Training [id number] Gait Cmt: Pt tolerated tx, very motivated to participate in gait training however distance limited today due to increased SOB on 3L. SpO2 94%. Pt left sitting up in chair, notified RN. 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 Goals TARGET DATE GOAL MET PRIOR TO [...] 20-30 minutes Document OT charges: SELF/HOME MGT/ADL [id number] If this is the patient's last treatment, this entry Start Time: 1001 Stop Time: 1027 Treatment time ( minutes): 0:26 Completed by: Elise Randhawa Conference/Supervising OT: Arnold Supervising Therapist: Alia Hassan - GROOMING/HYGIENE: ----- Safety awareness demonstrated ----- ----- ----- Lower Extremity Dressing: Maximal Assistance Increased time required: Yes Requires set up of supplies: Yes Requires physical assist to dress Lower Extremity: Don Clothing and Adjust Doff Clothing and Adjust Due to: Decrease mobility/balance Decreased Range of Motion ----- . 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 . Physical Exam General appearance: alert, awake Psych: alert, normal affect Neck: non-tender, supple Cardiovascular: regular rate rhythm, S1/S2 Respiratory: diminished breath sounds, aerating well Abdomen: bowel sounds present, soft, non-tender Ulcer: Type/cause: scab left foot. Musculoskeletal - general: Musculoskeletal - general: normal muscle mass Neuro/STONE BREAKER: alert, oriented X 3, CNII-XII intact, normal speech, no sensory deficits Results Findings/Data: Laboratory Tests: 04/17 04/17 04/16 04/16 04/16 0722 0013 2029 1621 1103 Chemistry Sodium (134 - 147 mEq/L) 137 [...] 218 H Calcium (8.0 - 10.5 mg/dL) 8.0 Hematology WBC (4.5 - 11.0 x10 3/uL) [...] (Auto) (14.0 - 32.0 %) 12.8 L Grainger % (Auto) (4.8 - 9.0 %) 9.8 H Eos % (Auto) (0.3 - 3.7 %) 1.6 Baso % (Auto) (0.0 - 2.0 %) 1.0 Neut # (Auto) (2.0 - 7.6 x10 3/uL) 2.25 Lymph # (Auto) (1.0 - 3.8 x10 3/uL) 0.39 L Grainger # (Auto) (0.1 - 0.8 x10 3/uL) 0.30 Eos # (Auto) (0.0 - 0.2 x10 3/uL) 0.05 Baso # (Auto) (0.0 - 0.2 x10 3/uL) 0.03 Abs Immat Gran (auto) (0.00 - 0.03 0.03 x10 3/uL) Add Manual Diff NO Immature Gran % (0.0 - 2.0 %) 1.0 Nucleated RBC % (0 - 0 %) 0.0 Nucleated RBCs # (Man) (0.0 - 0.1 0.00 x10 3/uL) Diagnosis, Assessment Plan Free Text A P: 73 year old male with acute on chronic respiratory failure, elevated D-dimer, JERAMY on CKD, recent CABG and weakness. Continue with PT/OT. Recommend IRF placement for his ongoing medical and rehabilitation needs. He is willing to stay here at [facility]. 04/14: Continue with therapy as tolerated. Pending IRF transfer. Encouraged increased time EOB/OOB to build endurance, balance and strength. 04/15: Gi cleared to start on anticoagulation given PE gareth. Cr stable and trending down. Hematology consulted due to leukopenia along with anemia. Pt noted with elevated retic count. ? may need bone marrow bx. PT/OT continued. OOB daily. 04/16: Planning for bone marrow bx. PT/OT. States improving gait. Hgb dropping. Today 7.3. Monitor when OOB. 04/17: Continue OOB daily and working with therapy. Hgb dropped. Bone marrow Bx today. Remains pancytopenic. Rehab attestation: Face to face exam completed. Treatment plan discussed with patient. Meets continued stay criteria. Agree with interdisciplinary treatment plan. at 1748 RPT #:[id number] END OF REPORT [facility] 2023-04-16 22:54:00 [facility] ([facility]) Avery/Oncology Progress Note REPORT#:[id number] REPORT STATUS: Signed DATE:04/16/23 TIME: 2253 PATIENT: TEVIN NYE UNIT #: [id number] ROOM/BED: 5517-1 : 51 AGE: 73 SEX: M ATTEND: Pablo Kumar MD ADM AUTHOR: Dakota Arvizu MD * ALL edits or amendments must be made on the electronic/computer document * Subjective Chief Complaint: Denies having any pain or other symptoms. Objective Physical Exam VS: Vital Signs Date Temp Pulse Resp B/P B/P Mean Pulse Ox FiO2 04/15-04/16 36.6-36.9 50-78 14-18 109-152/45-77 66.4-102.1 93-99 Last Documented: Result Date Time Pulse Ox 98 04/16 2146 O2 Delivery Nasal cannula 04/16 2146 O2 Flow Rate 3 04/16 2146 B/P 117/56 04/16 1912 B/P Mean 76.4 04/16 1912 Temp 36.7 04/16 1912 Pulse 59 04/16 1912 Resp 14 04/16 1912 FiO2 28 04/10 800 General appearance: alert, awake HEENT: atraumatic, normocephalic Neck: full range of motion, non-tender, supple/no meningismus, no JVD, no lymphadenopathy Cardiovascular: regular rate and rhythm Respiratory: clear to auscultation Abdomen: non-tender, normal bowel sounds, soft, no distention, no guarding, no mass/organomegaly, no rebound Extremities: moves all, normal capillary refill, no edema Musculoskeletal: full range of motion, normal inspection Neuro/STONE BREAKER: alert, oriented X 3 Ulcer: Type/cause: scab left foot. Results Findings/Data: Laboratory Tests 04/16/23 0643: [Embedded Image Not Available] Laboratory Tests 04/16 1621 1103 0744 0643 Chemistry [...] - 10.5 mg/dL) 8.0 Laboratory Tests 04/16 643 Hematology WBC (4.5 - 11.0 x10 3/uL) [...] (Auto) (14.0 - 32.0 %) 10.2 L Grainger % (Auto) (4.8 - 9.0 %) 10.5 H Eos % (Auto) (0.3 - 3.7 %) 2.4 Baso % (Auto) (0.0 - 2.0 %) 0.5 Neut # (Auto) (2.0 - 7.6 x10 3/uL) 2.80 Lymph # (Auto) (1.0 - 3.8 x10 3/uL) 0.38 L Grainger # (Auto) (0.1 - 0.8 x10 3/uL) [...] (0.0 - 0.1 x10 3/uL) 0.00 Radiology data: Current Medications Sig/Yas Start time Last Medication Dose Route Stop Time Status Admin Enoxaparin Sodium 70 MG 799,04/15 AC 04/16 SUBQ 05/15 Amiodarone HCl 200 MG DAILY 04/14 900 AC 04/16 PO 05/14 0859 0902 Metoprolol Tartrate 25 MG Q8HR 04/10 1400 AC 04/16 PO 05/08 2259 2140 Atorvastatin Calcium 40 MG 2100 04/09 2100 AC 04/16 PO 05/09 2059 2141 Lactulose 20 GM BID PRN PRN [...] 04/08 1800 AC IV 05/08 1759 Dose Instructions: (1)Sterile Water: DRESSING CHANGE Results: labs reviewed, vital signs stable Diagnosis, Assessment Plan Free Text DxA P Notes Free Text DxA P Notes: ASSESSMENT: * Normocytic, hypochromic anemia. This seems to be an anemia of chronic disease. With iron panel being normal it is less likely to be GI blood loss. Considering his leukopenia I suspect that he may be developing underlying primary bone marrow disease such as MDS. * Recurrent pulmonary embolism based on intermediate probability VQ scan. * History of coronary artery disease, status post 2 coronary artery bypass graft surgery. PLAN: * Continues to have persistent normocytic, hypochromic anemia and leukopenia. Discussed with the patient that I am concerned that he may be developing any primary bone marrow disease such as MDS. Therefore have recommended a bone marrow aspiration and biopsy for further evaluation. He is agreeable to this plan. * Monitor CBC. * Patient may need to continue with anticoagulation considering benefits more than the risk. * Apparently his lower GI bleed is associated with constipation. * I will continue to follow. 04/16 Counts continue to be low. Bone marrow aspiration biopsy ordered, pending. Continue to follow. at 2256 RPT #:[id number] END OF REPORT [facility] 2023-04-16 20:47:00 [facility]) Podiatry Progress Note REPORT#:[id number] REPORT STATUS: Signed DATE:04/16/23 TIME: 2046 PATIENT: TEVIN NYE UNIT #: [id number] ROOM/BED: [place] [address] : 51 AGE: 73 SEX: M ATTEND: Pablo Kumar MD ADM AUTHOR: Andres Rachel DPM * ALL edits or amendments must be made on the electronic/computer document * Subjective Chief complaint: left foot ulcer Patient reports: no confusion, no diarrhea, no headache Comments: pt very pleasant. dressing had fallen off of the foot. pt has pain. only takes tylenol. on exam: ulcer dorsal right forefoot with scabbing. dry peeling necrosis. slightly healthier. Objective General VS: Last Documented: Result Date Time Pulse Ox 97 04/16 1912 B/P 117/56 04/16 1912 B/P Mean 76.4 04/16 1912 Temp 36.7 04/16 1912 Pulse 59 04/16 1912 Resp 14 04/16 1912 O2 Delivery Room air 04/16 162 O2 Flow Rate 2 04/16 1553 FiO2 28 04/10 08 PATIENT WEIGHT: Weight (lb): Weight (oz): Weight (kg): 86.200 Medications: Active Meds + DC'd Last 24 Hrs Enoxaparin Sodium (lovENOX) 70 MG 799,1999 SUBQ Amiodarone HCl (CORDARONE) 200 MG DAILY PO Metoprolol Tartrate (LOPRESSOR) 25 MG Q8HR PO Atorvastatin Calcium (LIPITOR) 40 MG 2100 PO Lactulose (LACTULOSE) 20 GM BID PRN PRN PO Miscellaneous Information [facility] 1 EACH ASDIR SUBQ ( CKD) Sterile Water (WATER FOR IRRIGATION) DRESSING CHANGE [...] MG Q4H PRN PRN IV Dietitian nutrition assessment The data set between the solid lines has been imported from the dietitian's assessment. BMI Calculated: 29.8 Nutrition related diagnosis: Nutrition diagnosis details: Nutrition problem: Nutrition etiology: Nutrition signs and symptoms: Nutrition prescription: Dietitian name: Assessment completed: Physical Exam Wound/incision: Location: bilat foot Site condition: small pinpoint ulcer right foot. ulcer left forefoot dorsal. partial and full thickness. no erythema. no depth. LE vascular pulse assess: Nonpalpable R posterior tibialis, Nonpalpable L posterior tibialis, Nonpalpable R dorsalis pedis, Nonpalpable L dorsalis pedis Diagnosis, Assessment Plan Free Text A P: ulcer left foot. pain PVD ulcer is benign...starting to peel continue local wound care. no xray found. venous u/s neg NIAS: pvd as expected. rec'd to pt prevalon boots. covering for Dr. Washington at 0816 RPT #:[id number] END OF REPORT [facility] 2023-04-16 16:43:00 [facility] ([facility]) Cardiology Progress Note REPORT#:[id number] REPORT STATUS: Signed DATE:04/16/23 TIME: 3 PATIENT: TEVIN NYE UNIT #: [id number] ROOM/BED: 5517-1 : 51 AGE: 73 SEX: M ATTEND: Rojelio Magaña MD ADM AUTHOR: Daniela Mari * ALL edits or amendments must be made on the electronic/computer document * Subjective Patient reports: No: complaints, chest pain, palpitations. Review of Systems Respiratory: Reports: SOB. Cardiovascular: Denies: chest pain, palpitations. GI: Denies: abdominal pain, nausea, vomiting. Objective General VS/I O: Vital Signs: Date Time Temp Pulse Resp [...] Weight (lb): Weight (oz): Weight (kg): 86.200 Medications: Active Meds + DC'd Last 24 Hrs Enoxaparin Sodium (lovENOX) 70 MG 0800,2000 SUBQ Amiodarone HCl (CORDARONE) 200 MG DAILY PO Metoprolol Tartrate (LOPRESSOR) 25 MG Q8HR PO Atorvastatin Calcium (LIPITOR) 40 MG 2100 PO Lactulose (LACTULOSE) 20 GM BID PRN PRN PO Miscellaneous Information ([facility]ARM[facility]Y TO DOSE) 1 EACH ASDIR SUBQ ( CKD) Sterile Water (WATER FOR IRRIGATION) DRESSING CHANGE [...] 4 MG Q4H PRN PRN IV Physical Exam General appearance: alert, awake Neck: non-tender, no JVD Cardiovascular: CV assessment: ectopy, regular rate and rhythm Respiratory: decreased breath sounds, no distress Abdomen: soft, non-tender, normal bowel sounds, no distention Genitourinary: no flank pain, no urinary catheter Lower extremity: LE assessment: abnormal pedal pulse Musculoskeletal: normal inspection Neuro/STONE BREAKER: alert, oriented X 3, normal speech Skin: dry, intact Ulcer: Type/cause: scab left foot. Psychiatry: normal affect, normal judgment/insight, normal mood Results Findings/Data: Laboratory Tests 04/16 04/16 04/16 04/15 1103 0744 [...] (Auto) (14.0 - 32.0 %) 10.2 L Grainger % (Auto) (4.8 - 9.0 %) 10.5 H Eos % (Auto) (0.3 - 3.7 %) 2.4 Baso % (Auto) (0.0 - 2.0 %) 0.5 Neut # (Auto) (2.0 - 7.6 x10 3/uL) 2.80 Lymph # (Auto) (1.0 - 3.8 x10 3/uL) 0.38 L Grainger # (Auto) (0.1 - 0.8 x10 3/uL) [...] signs reviewed, rhythm personally rev'd Diagnosis, Assessment Plan Plan discussed with: patient, collaborating MD Free Text DxA P Notes Free Text DxA P Notes: 73 YO male with MHx of CAD s/p CABG less than 1 month ago, COPD, PE. He presents with generalized weakness and near syncope. Per family [...] d/t PE * Hx of PE, elevated D-dimer * Unable to CTA due to elevated creatinine * echocardiogram preserved LVEF * VQ suggestive of pulmonary embolism * On Lovenox full dose, transition to AC anytime 2. CAD s/p CABG * stop Plavix, continue baby ASA plus AC of choice by pulmonology * continue BB and statin 3. JERAMY on CKD 2/2 volume depletion * creatinine trending down 3->2.9->2.4->1.9->1.3->1.4 * resume lisinopril when ok with nephrology * nephrology following 4. Left foot ulcer/abnormal arterial doppler * looks like the left foot wound is healing. In the event the left foot wound failed to heal then we will consider peripheral angiogram outpatient * podiatry following - wound benign per podiatry 5. Hx of COPD * pulmonary following 6. Acute Pulmonary embolism - recurrent * AC per pulmonology * LE venous doppler no DVT 7. PVCs * Multiple PVCs * Add amiodarone 200 mg daily and continue metoprolol * Replace low magnesium Overall doing well. Rehab consulted Okay to transfer to rehab once bed available. MDM by Dr. Haynes. at 1645 at 1443 RPT #:[id number] END OF REPORT [facility] 2023-04-16 14:07:00 [facility] ([facility] Nephrology Progress Note REPORT#:[id number] REPORT STATUS: Signed DATE:04/16/23 TIME: 1407 PATIENT: TEVIN NYE UNIT #: [id number] ROOM/BED: [address] : 51 AGE: 73 SEX: M ATTEND: Pablo Kumar MD ADM AUTHOR: Glendy Paz MD * ALL edits or amendments must be made on the electronic/computer document * Subjective Chief complaint: Follow-up of acute renal failure, ATN/AIN Comments: Laying flat in bed, but complains of shortness of breath on exertion Objective General VS/I O: Vital Signs: Date Time Temp Pulse Resp [...] Weight (lb): Weight (oz): Weight (kg): 86.200 Medications Active Meds + DC'd Last 24 Hrs Enoxaparin Sodium (lovENOX) 70 MG 0800,1999 SUBQ Amiodarone HCl (CORDARONE) 200 MG DAILY PO Metoprolol Tartrate (LOPRESSOR) 25 MG Q8HR PO Atorvastatin Calcium (LIPITOR) 40 MG 2100 PO Lactulose (LACTULOSE) 20 GM BID PRN PRN PO Miscellaneous Information ([facility] PHARMACY TO DOSE) 1 EACH ASDIR SUBQ ( CKD) Sterile Water (WATER FOR IRRIGATION) DRESSING CHANGE [...] 4 MG Q4H PRN PRN IV Physical Exam General appearance: alert, awake, oriented Head/eyes: atraumatic, normocephalic ENT: moist mucous membranes Neck: supple/no meningismus, no JVD Cardiovascular: normal heart sounds, no rub Respiratory: aerating well, clear to auscultation, no distress Genitourinary: no bladder distention Extremities: no edema Neuro/STONE BREAKER: alert, oriented X 3 Ulcer: Type/cause: scab left foot. Results Findings/Data: Laboratory Tests 04/16 04/16 04/16 04/15 04/15 1103 [...] (Auto) (14.0 - 32.0 %) 10.2 L Grainger % (Auto) (4.8 - 9.0 %) 10.5 H Eos % (Auto) (0.3 - 3.7 %) 2.4 Baso % (Auto) (0.0 - 2.0 %) 0.5 Neut # (Auto) (2.0 - 7.6 x10 3/uL) 2.80 Lymph # (Auto) (1.0 - 3.8 x10 3/uL) 0.38 L Grainger # (Auto) (0.1 - 0.8 x10 3/uL) [...] 3/uL) 0.00 Diagnosis, Assessment Plan Free Text A P: Assessment/plan: 1. Acute renal failure most likely secondary to volume depletion, overdiuresis and ATN/AIN with Bactrim and lisinopril on board. Cr further better 2.9-2.4-1.9 > 1.2 >1.3>1.4, stable today, renal sono without hydronephrosis. Likely has underlying CKD. 2. Coronary artery disease: Status post CABG, continue home medications 3. COPD: Symptomatic treatment 4. History of prostate cancer, s/p radiation 2021 5. Anemia: Requested stool occult blood-not sent yet, and iron studies reviewed- ok, transfuse as needed for hemoglobin less than 7. Hematology following, bone marrow biopsy tomorrow pending rehab. stable from nephrology for discharge. at 1624 RPT #:[id number] END OF REPORT [facility] 2023-04-16 13:37:00 [facility] ([facility]) Pulmonology Progress Note REPORT#:[id number] REPORT STATUS: Signed DATE:04/16/23 TIME: 1337 PATIENT: TEVIN NYE UNIT #: [id number] ROOM/BED: 5517-1 : 51 AGE: 73 SEX: M ATTEND: Pablo Kumar MD ADM AUTHOR: Sharmila Alan * ALL edits or amendments must be made on the electronic/computer document * Subjective Comments: On NC, comfortable, no new complaints ROS All systems rev neg: except as marked Objective General VS/I O: Last Documented: Result Date Time O2 Delivery Nasal cannula 04/16 1221 O2 Flow Rate 2 04/16 1221 Pulse Ox 93 04/16 1101 B/P 135/71 04/16 1101 B/P Mean 92.0 04/16 1101 Temp 36.9 04/16 1101 Pulse 76 04/16 1101 Resp 18 04/16 1101 FiO2 28 04/10 0800 PATIENT WEIGHT: Weight (lb): Weight (oz): Weight (kg): 86.200 Medications: Active Meds + DC'd Last 24 Hrs Enoxaparin Sodium (lovENOX) 70 MG 0800,1999 SUBQ Amiodarone HCl (CORDARONE) 200 MG DAILY PO Metoprolol Tartrate (LOPRESSOR) 25 MG Q8HR PO Atorvastatin Calcium (LIPITOR) 40 MG 2100 PO Lactulose (LACTULOSE) 20 GM BID PRN PRN PO Miscellaneous Information ([facility]) 1 EACH ASDIR SUBQ ( CKD) Sterile Water (WATER FOR IRRIGATION) DRESSING CHANGE [...] 4 MG Q4H PRN PRN IV Physical Exam General appearance: alert, awake, oriented, no acute distress Head/eyes: atraumatic, normocephalic, PERRL, EOMI Neck: no JVD, no lymphadenopathy Cardiovascular: normal heart sounds, normal S1/S2, regular rate rhythm Respiratory/chest: decreased breath sounds, on oxygen, aerating well, symmetric expansion Abdomen: soft, no guarding Extremities: moves all, no clubbing, no cyanosis, no edema Neuro/STONE BREAKER: CNII-XII intact Skin: dry, intact Ulcer: Type/cause: scab left foot. Psychiatry: normal affect, normal judgment/insight, normal mood Results Findings/Data: Laboratory Tests 04/16/23 0643: [Embedded Image Not Available] Laboratory Tests 04/16 04/16 04/16 04/15 04/15 1103 0744 43 2006 1533 Chemistry Sodium (134 - 147 [...] - 10.5 mg/dL) 8.0 Laboratory Tests 04/16 643 Hematology WBC (4.5 - 11.0 x10 3/uL) [...] (Auto) (14.0 - 32.0 %) 10.2 L Grainger % (Auto) (4.8 - 9.0 %) 10.5 H Eos % (Auto) (0.3 - 3.7 %) 2.4 Baso % (Auto) (0.0 - 2.0 %) 0.5 Neut # (Auto) (2.0 - 7.6 x10 3/uL) 2.80 Lymph # (Auto) (1.0 - 3.8 x10 3/uL) 0.38 L Grainger # (Auto) (0.1 - 0.8 x10 3/uL) [...] 3/uL) 0.00 Diagnosis, Assessment Plan Free Text A P: Acute on chronic hypoxemic respiratory failure supplemental O2 as needed and wean as tolerated Pulmonary embolism Initially diagnosed in November 2022 at outside hospital; was on Eliquis from diagnosis through February. CTA chest 03/03/2023 was negative for pulmonary embolism. Patient was discharged home 03/13/2023 and told to discontinue taking Eliquis. -D-dimer 1496. -VQ scan with intermediate probability. 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 Check bilateral lower extremity Dopplers -> neg -Renally dose lovenox @ 1mg/kg once daily -d/w cardio. will ultimately AC with eliquis ASA. Off plavix. Continue lovenox for now. COPD No exacerbation. On Combivent and ipratropium nebs at home. -May need repeat pulmonary function test outpatient. 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 1.5 x 0.8 cm nodular opacity in RLL needs follow-up in 3 months CAD / PAD S/p CABG 03/04/2023 Cardiothoracic surgery following Pending echo - will need periph angio when cr improved JERAMY/CKD Nephrology consult Strict I O. Measure UOP. 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 Await BMB per Heme PT/OT Rehab eval at 1338 RPT #:[id number] END OF REPORT [facility] 2023-04-16 11:12:00 [facility] ([facility]) Gastroenterology Progress Note REPORT#:[id number] REPORT STATUS: Signed DATE:04/16/23 TIME: 111 PATIENT: TEVIN NYE UNIT #: [id number] ROOM/BED: [place] [address] : 51 AGE: 73 SEX: M ATTEND: Pablo Kumar MD ADM AUTHOR: Clint Roman * ALL edits or amendments must be made on the electronic/computer document * Clint Roman 04/16/23 1112: Subjective Comments: no nausea, vomiting, or abdominal pain. No overt gi bleeding Review of Systems Additional notes: 10 point ros neg except hpi Objective General VS/I O: Last Documented: Result Date Time Pulse Ox 93 04/16 1101 B/P 135/71 04/16 1101 B/P Mean 92.0 04/16 1101 O2 Delivery Room air 04/16 1101 Temp 98.4 04/16 1101 Pulse 76 / 1101 Resp 18 04/16 1101 O2 Flow Rate 3 04/16 0744 FiO2 28 04/10 0800 PATIENT WEIGHT: Weight (lb): Weight (oz): Weight (kg): 86.200 Medications: Active Meds + DC'd Last 24 Hrs Enoxaparin Sodium (lovENOX) 70 MG 0800,1999 SUBQ Amiodarone HCl (CORDARONE) 200 MG DAILY PO Metoprolol Tartrate (LOPRESSOR) 25 MG Q8HR PO Atorvastatin Calcium (LIPITOR) 40 MG 2100 PO Lactulose (LACTULOSE) 20 GM BID PRN PRN PO Miscellaneous Information ([facility]OV[facility]OX PHARM[facility]Y TO DOSE) 1 EACH ASDIR SUBQ ( CKD) Sterile Water (WATER FOR IRRIGATION) DRESSING CHANGE [...] 4 MG Q4H PRN PRN IV Physical Exam General appearance: alert, awake HEENT: atraumatic, normocephalic Neck: full range of motion Cardiovascular: normal heart sounds, regular rate rhythm Respiratory: no distress, on oxygen Abdomen: non-tender, normal bowel sounds, soft, no distention Extremities: decreased range of motion Neuro/STONE BREAKER: alert, oriented X 3 Skin: dry, intact Ulcer: Type/cause: scab left foot. Psychiatry: normal affect, normal judgment/insight Results Findings/Data: Laboratory Tests 04/16/23 0643: [Embedded Image Not Available] Laboratory Tests 04/16 04/16 04/15 04/15 0744 0643 2006 153 Chemistry Sodium (134 - 147 mEq/L) 137 [...] (Auto) (14.0 - 32.0 %) 10.2 L Grainger % (Auto) (4.8 - 9.0 %) 10.5 H Eos % (Auto) (0.3 - 3.7 %) 2.4 Baso % (Auto) (0.0 - 2.0 %) 0.5 Neut # (Auto) (2.0 - 7.6 x10 3/uL) 2.80 Lymph # (Auto) (1.0 - 3.8 x10 3/uL) 0.38 L Grainger # (Auto) (0.1 - 0.8 x10 3/uL) [...] 3/uL) 0.00 Diagnosis, Assessment Plan Free Text A P: Assessment dyspnea on exertion PE hx of prostate cancer, s/p radiation therapy anemia rectal bleeding, mild, resolved 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 leukopenia pancytopenia Plan: - monitor h/h, transfuse as needed - monitor for further bleeding - diet as tolerated - agree with pulm recs, ok from gi standpoint to eventually transition to eliquis when ok with hematology, benefits > risks - hematology following, appreciate input, plans for bone marrow biopsy Roberto Galeano 04/16/23 1653: Attestations Physician Attestation Agree w/findings plan: Agree with the findings and plan as documented by Abel PRITCHARD; at 1450 at 5826 RPT #:[id number] END OF REPORT [facility] 2023-04-16 10:13:00 [facility] Hospitalist Progress Note REPORT#:[id number] REPORT STATUS: Signed DATE:04/16/23 TIME: 1013 PATIENT: TEVIN NYE UNIT #: [id number] ROOM/BED: [place] [address] : 51 AGE: 73 SEX: M ATTEND: Pablo Kumar MD ADM AUTHOR: Pablo Kumar MD * ALL edits or amendments must be made on the electronic/computer document * Subjective Chief complaint: no sob. no cp. ambulating. awaitng BM bx. Objective General VS/I O: Vital Signs: Date Time Temp Pulse Resp [...] (lb): Weight (oz): Weight (kg): 86.200 Physical Exam General appearance: alert, awake Head/Eyes: atraumatic, clear cornea, EOMI Neck: supple/no meningismus Cardiovascular: normal heart sounds, regular rate rhythm, no gallop, no murmur , no rub Respiratory: aerating well, clear to auscultation, symmetric expansion Abdomen: non-tender, normal bowel sounds, soft, no distention Extremities: no clubbing, no cyanosis, no edema Musculoskeletal: normal inspection, painless range of motion Neuro/STONE BREAKER: alert, oriented X 3, CNII-XII intact Skin: dry, intact Ulcer: Type/cause: scab left foot. Results Radiology data: Laboratory Tests 04/16/23 0643: [Embedded Image Not Available] 04/15/23 0615: [Embedded Image Not Available] Current Medications Sig/Yas Start time Last Medication Dose Route Stop Time Status Admin Enoxaparin Sodium 70 MG 0800,04/15 AC 04/16 SUBQ 05/15 Furosemide 20 MG ONCE ONE 04/15 1100 DC 04/15 IV 04/15 1101 1229 Amiodarone HCl 200 MG DAILY 04/14 0900 AC 04/16 PO 05/14 0859 0902 Metoprolol Tartrate 25 MG Q8HR 04/10 1400 AC 04/16 PO 05/08 2259 0510 Atorvastatin Calcium 40 MG 2100 04/09 2100 AC 04/15 PO 05/09 2059 2107 Lactulose 20 GM BID PRN PRN 04/09 1900 AC 04/09 PO 05/09 1859 193 Miscellaneous 1 EACH ASDIR 04/09 1530 CKD [...] 04/08 1800 AC IV 05/08 175 Dose Instructions: (1)Sterile Water: DRESSING CHANGE Laboratory Tests: 04/16 04/16 04/15 04/15 04/15 0744 0643 2006 1533 1046 Chemistry Sodium (134 - 147 mEq/L) 137 [...] 202 H Calcium (8.0 - 10.5 mg/dL) 8.0 Hematology WBC (4.5 - 11.0 x10 3/uL) [...] (Auto) (14.0 - 32.0 %) 10.2 L Grainger % (Auto) (4.8 - 9.0 %) 10.5 H Eos % (Auto) (0.3 - 3.7 %) 2.4 Baso % (Auto) (0.0 - 2.0 %) 0.5 Neut # (Auto) (2.0 - 7.6 x10 3/uL) 2.80 Lymph # (Auto) (1.0 - 3.8 x10 3/uL) 0.38 L Grainger # (Auto) (0.1 - 0.8 x10 3/uL) 0.39 Eos # (Auto) (0.0 - 0.2 x10 3/uL) 0.09 Baso # (Auto) (0.0 - 0.2 x10 3/uL) 0.02 Abs Immat Gran (auto) (0.00 - 0.03 0.03 x10 3/uL) Add Manual Diff NO Immature Gran % (0.0 - 2.0 %) 0.8 Nucleated RBC % (0 - 0 %) 0.0 Nucleated RBCs # (Man) (0.0 - 0.1 0.00 x10 3/uL) Diagnosis, Assessment Plan Free Text DxA P Notes Free text DxA P notes: SOB cardiology and pulmonary seen on 2.5 to 3 liters of oxygen per n/c echo wnl will give lasix twenty mg one time dose check chest xray 04/14- CXR on 04/13 was negative. pulmonary following. elevated D-dimer V-Q scan with intermediate probability on therapeutic lovenox renally dosed for now 04/14- pulmonary following...worsening anemia, but guiaiac negaive anemia (pancytopenia) 04/14- hgb dropped to 8 today (9.7 two days ago). ask heme to see. h/o cancer. guiaiac negative. 8- hgb stable at 8. 8/9- hgb 7.3...bone marrow bx planned today? JERAMY with CKD renal seen on IVF creat improving COPD on home oxygen h/o CAD s/p CABG X4 on 03/04/2023 CTS consulted and seen DM accuchecks and SSI prn check A1C BG controlled HTN bp controlled resumed home meds HLD on statin stable Prostate cancer s/p XRT Debility per PT/OT could be a post acute rehab candidate consulted rehab recommend IRF check labs in am f/up wiht DR. Rinaldi 04/14- awiaitng tranfer to rehab. folow h/h. ask heme to see. 8- h/h stable. cleared by GI to change lovenox to Eliquis if pulmonary wishes. 8/9- hgb 7.3. Bone marrow bx planned. at 1014 RPT #:[id number] END OF REPORT [facility] 2023-04-16 09:22:00 [facility] ([facility]) Rehab Progress Note REPORT#:[id number] REPORT STATUS: Signed DATE:04/16/23 TIME: 921 PATIENT: TEVIN NYE UNIT #: [id number] ROOM/BED: [place] [address] : 51 AGE: 73 SEX: M ATTEND: Pablo Kumar MD ADM AUTHOR: Nicolasa Galeano PA-C * ALL edits or amendments must be made on the electronic/computer document * Subjective Chief complaint: Pt seen and examined. No acute distress. No complaints. Going for a bone marrow bx tomorrow. Objective General VS: Vital Signs: Date Time Temp Pulse Resp [...] Weight (lb): Weight (oz): Weight (kg): 86.200 Medications: Active Meds + DC'd Last 24 Hrs Enoxaparin Sodium (lovENOX) 70 MG 0800,2000 SUBQ Furosemide (LASIX 20MG INJ) 20 MG ONCE ONE IV (DC) Amiodarone HCl (CORDARONE) 200 MG DAILY PO Metoprolol Tartrate (LOPRESSOR) 25 MG Q8HR PO Atorvastatin Calcium (LIPITOR) 40 MG 2100 PO Lactulose (LACTULOSE) 20 GM BID PRN PRN PO Miscellaneous Information (LOVENOX PHARMACY TO DOSE) 1 EACH ASDIR SUBQ ( CKD) Sterile Water (WATER FOR IRRIGATION) DRESSING CHANGE [...] 4 MG Q4H PRN PRN IV Functional Progress Functional progress: GAIT TRAINING 1. Medical Record reviewed. [...] FORWARD Antalgic Gait Left Effects of Treatment: Yoder of care decreased Circulation improved Gait quality improved Function Improved Post [place] Precautions: FALL WC TO FOLLOW Review Plan of Care: Yes PT charges: Gait Training [id number] Gait Cmt: Pt tolerated tx well demo progress in gait distance. Pt SOB w/ amb on 2L O2 however SpO2 94 %. Pt left sitting EOB w/ call light all needs within reach. If this is the patient's last treatment, this entry Start Time: 942 Stop Time: 1014 Treatment Time: ( minutes) 0:31 Completed by: Kali Charles Conference/Supervising PT: [...] 200 FEET USING RW WITH : 04/16/23 ST GL2: Y SUPERVISION. Correction Goals TARGET DATE GOAL MET Physical Exam General appearance: alert, awake Psych: alert, normal affect Neck: non-tender, supple Cardiovascular: regular rate rhythm, S1/S2 Respiratory: diminished breath sounds, aerating well Abdomen: bowel sounds present, soft, non-tender Ulcer: Type/cause: scab left foot. Musculoskeletal - general: Musculoskeletal - general: normal muscle mass Neuro/STONE BREAKER: alert, oriented X 3, CNII-XII intact, normal speech, no sensory deficits Results Findings/Data: Laboratory Tests: 04/16 04/16 04/15 04/15 04/15 0744 0621 2006 3849 1046 Chemistry Sodium (134 - 147 mEq/L) 137 [...] 202 H Calcium (8.0 - 10.5 mg/dL) 8.0 Hematology WBC (4.5 - 11.0 x10 3/uL) [...] (Auto) (14.0 - 32.0 %) 10.2 L Grainger % (Auto) (4.8 - 9.0 %) 10.5 H Eos % (Auto) (0.3 - 3.7 %) 2.4 Baso % (Auto) (0.0 - 2.0 %) 0.5 Neut # (Auto) (2.0 - 7.6 x10 3/uL) 2.80 Lymph # (Auto) (1.0 - 3.8 x10 3/uL) 0.38 L Grainger # (Auto) (0.1 - 0.8 x10 3/uL) 0.39 Eos # (Auto) (0.0 - 0.2 x10 3/uL) 0.09 Baso # (Auto) (0.0 - 0.2 x10 3/uL) 0.02 Abs Immat Gran (auto) (0.00 - 0.03 0.03 x10 3/uL) Add Manual Diff NO Immature Gran % (0.0 - 2.0 %) 0.8 Nucleated RBC % (0 - 0 %) 0.0 Nucleated RBCs # (Man) (0.0 - 0.1 0.00 x10 3/uL) Diagnosis, Assessment Plan Free Text A P: 73 year old male with acute on chronic respiratory failure, elevated D-dimer, JERAMY on CKD, recent CABG and weakness. Continue with PT/OT. Recommend IRF placement for his ongoing medical and rehabilitation needs. He is willing to stay here at [facility]. 04/14: Continue with therapy as tolerated. Pending IRF transfer. Encouraged increased time EOB/OOB to build endurance, balance and strength. 04/15: Gi cleared to start on anticoagulation given PE gareth. Cr stable and trending down. Hematology consulted due to leukopenia along with anemia. Pt noted with elevated retic count. ? may need bone marrow bx. PT/OT continued. OOB daily. 04/16: Planning for bone marrow bx. PT/OT. States improving gait. Hgb dropping. Today 7.3. Monitor when OOB. Rehab attestation: Face to face exam completed. Treatment plan discussed with patient. Meets continued stay criteria. Agree with interdisciplinary treatment plan. at 2116 RPT #:[id number] END OF REPORT [facility] 2023-04-15 22:15:00 [facility] ([facility]) Avery/Oncology Progress Note REPORT#:[id number] REPORT STATUS: Signed DATE:04/15/23 TIME: 2214 PATIENT: TEVIN NYE UNIT #: [id number] ROOM/BED: 5517-1 : 51 AGE: 73 SEX: M ATTEND: Pablo Kumar MD ADM AUTHOR: Dakota Arvizu MD * ALL edits or amendments must be made on the electronic/computer document * Subjective Chief Complaint: Denies having any pain or other symptoms. Objective Physical Exam VS: Vital Signs Date Temp Pulse Resp B/P B/P Mean Pulse Ox FiO2 04/14-04/15 36.7-37.0 42-84 14-17 116-146/56-85 80.7-105.5 93-100 Last Documented: Result Date Time Pulse Ox 100 04/15 2015 O2 Delivery Room air 04/15 2015 B/P 127/60 04/15 2008 B/P Mean 82.3 04/15 2008 Temp 36.7 04/15 2008 Pulse 42 04/15 2008 Resp 16 04/15 2008 O2 Flow Rate 2 04/15 915 FiO2 28 04/10 0800 General appearance: alert, awake HEENT: atraumatic, normocephalic Neck: full range of motion, non-tender, supple/no meningismus, no JVD, no lymphadenopathy Cardiovascular: regular rate and rhythm Respiratory: clear to auscultation Abdomen: non-tender, normal bowel sounds, soft, no distention, no guarding, no mass/organomegaly, no rebound Extremities: moves all, normal capillary refill, no edema Musculoskeletal: full range of motion, normal inspection Neuro/STONE BREAKER: alert, oriented X 3 Ulcer: Type/cause: scab left foot. Results Findings/Data: Laboratory Tests 04/15/23 0615: [Embedded Image Not Available] Laboratory Tests 04/15 04/15 04/15 04/15 04/15 1533 1046 0651 0615 0615 Chemistry Sodium (134 - 147 mEq/L) [...] mg/dL) 1.94 Lactate Dehydrogenase (87 - 241 191 IUnits/L) Vitamin B12 (193 - 986 pg/mL) 589 [...] (Auto) (14.0 - 32.0 %) 7.3 L Grainger % (Auto) (4.8 - 9.0 %) 9.6 H Eos % (Auto) (0.3 - 3.7 %) 1.8 Baso % (Auto) (0.0 - 2.0 %) 0.5 Neut # (Auto) (2.0 - 7.6 x10 3/uL) 3.10 Lymph # (Auto) (1.0 - 3.8 x10 3/uL) 0.28 L Grainger # (Auto) (0.1 - 0.8 x10 3/uL) [...] (0.3 - 2.3 %) 5.9 H Radiology data: Current Medications Sig/Yas Start time Last Medication Dose Route Stop Time Status Admin Enoxaparin Sodium 70 MG 0800,04/15 AC 04/15 SUBQ 05/15 1959 2107 Furosemide 20 MG ONCE ONE 04/15 1100 DC 04/15 IV 04/15 1101 1229 Amiodarone HCl 200 MG DAILY 04/14 09 AC 04/15 PO 05/14 0859 0834 Enoxaparin [...] BEDTIME 04/08 2300 AC 04/15 PO 05/08 2259 2107 Acetaminophen 650 MG Q4H PRN PRN 04/08 1800 AC 04/13 PO 05/08 1759 2147 Ondansetron HCl 4 MG Q4H PRN PRN 04/08 1800 AC IV 05/08 1759 Dose Instructions: (1)Sterile Water: DRESSING CHANGE Results: labs reviewed, vital signs stable Diagnosis, Assessment Plan Free Text DxA P Notes Free Text DxA P Notes: ASSESSMENT: * Normocytic, hypochromic anemia. This seems to be an anemia of chronic disease. With iron panel being normal it is less likely to be GI blood loss. Considering his leukopenia I suspect that he may be developing underlying primary bone marrow disease such as MDS. * Recurrent pulmonary embolism based on intermediate probability VQ scan. * History of coronary artery disease, status post 2 coronary artery bypass graft surgery. PLAN: * Continues to have persistent normocytic, hypochromic anemia and leukopenia. Discussed with the patient that I am concerned that he may be developing any primary bone marrow disease such as MDS. Therefore have recommended a bone marrow aspiration and biopsy for further evaluation. He is agreeable to this plan. * Monitor CBC. * Patient may need to continue with anticoagulation considering benefits more than the risk. * Apparently his lower GI bleed is associated with constipation. * I will continue to follow. at 2219 RPT #:[id number] END OF REPORT [facility] 2023-04-15 20:52:00 [facility] Podiatry Progress Note REPORT#:[id number] REPORT STATUS: Signed DATE:04/15/23 TIME: 2051 PATIENT: TEVIN NYE UNIT #: [id number] ROOM/BED: [place] [address] : 51 AGE: 73 SEX: M ATTEND: Pablo Kumar MD ADM AUTHOR: Andres Rachel DPM * ALL edits or amendments must be made on the electronic/computer document * Subjective Chief complaint: left foot ulcer Patient reports: no confusion, no diarrhea, no fatigue, no fever, no heartburn, no nausea Comments: pt very pleasant. doesnt have prevalon boots. is interested. dressing had fallen off of the foot. pt has pain. only takes tylenol. on exam: ulcer dorsal right forefoot with scabbing. dry peeling necrosis Objective General VS: Last Documented: Result Date Time Pulse Ox 98 04/15 2008 B/P 127/60 04/15 2008 B/P Mean 82.3 04/15 2008 O2 Delivery Nasal cannula 04/15 2008 Temp 36.7 04/15 2008 Pulse 42 04/15 2008 Resp 16 04/15 2008 O2 Flow Rate 2 04/15 0915 FiO2 28 04/10 0800 PATIENT WEIGHT: Weight (lb): Weight (oz): Weight (kg): 86.200 Medications: Active Meds + DC'd Last 24 Hrs Enoxaparin Sodium (lovENOX) 70 MG 0800,2000 SUBQ Furosemide (LASIX 20MG INJ) 20 MG ONCE ONE IV (DC) Amiodarone HCl (CORDARONE) 200 MG DAILY PO Enoxaparin Sodium (lovENOX) 85 MG Q12H SUBQ (DC) Metoprolol Tartrate (LOPRESSOR) 25 MG Q8HR PO Atorvastatin Calcium (LIPITOR) 40 MG 2100 PO Lactulose (LACTULOSE) 20 GM BID PRN PRN PO Miscellaneous Information (LOVENOX PHARMACY TO DOSE) 1 EACH ASDIR SUBQ ( CKD) Sterile Water (WATER FOR IRRIGATION) DRESSING CHANGE [...] 4 MG Q4H PRN PRN IV I O: 24 hour I O ending at 0700: 08/08 0700 0807 1900 Intake Total Output Total 800 Balance -800 Output, Urine 800 Dietitian nutrition assessment The data set between the solid lines has been imported from the dietitian's assessment. BMI Calculated: 29.8 Nutrition related diagnosis: Nutrition diagnosis details: Nutrition problem: Nutrition etiology: Nutrition signs and symptoms: Nutrition prescription: Dietitian name: Assessment completed: Physical Exam General appearance: alert, awake, oriented Wound/incision: Location: bilat foot Site condition: small pinpoint ulcer right foot. ulcer left forefoot dorsal. partial and full thickness. no erythema. no depth. LE vascular pulse assess: Nonpalpable R posterior tibialis, Nonpalpable L posterior tibialis, Nonpalpable R dorsalis pedis, Nonpalpable L dorsalis pedis Results Findings/Data: Laboratory Tests: 04/15 04/15 04/15 04/15 1533 1046 0651 0615 Chemistry POC Glucose (70 - 110 MG/DL) 184 H 202 H 207 H Vitamin B12 (193 - 986 pg/mL) 589 Folate (3.1 - 17.5 ng/mL) 14.0 Hematology Retic Count (auto) (0.3 - 2.3 %) 5.9 H 04/15 0615 Chemistry Sodium (134 - 147 mEq/L) [...] (Auto) (14.0 - 32.0 %) 7.3 L Grainger % (Auto) (4.8 - 9.0 %) 9.6 H Eos % (Auto) (0.3 - 3.7 %) 1.8 Baso % (Auto) (0.0 - 2.0 %) 0.5 Neut # (Auto) (2.0 - 7.6 x10 3/uL) 3.10 Lymph # (Auto) (1.0 - 3.8 x10 3/uL) 0.28 L Grainger # (Auto) (0.1 - 0.8 x10 3/uL) [...] 3/uL) 0.00 Diagnosis, Assessment Plan Free Text A P: ulcer left foot. pain PVD ulcer is benign...starting to peel continue local wound care. no xray found. venous u/s neg NIAS: pvd as expected. rec'd to pt prevalon boots. covering for Dr. Washington at 2053 RPT #:[id number] END OF REPORT [facility] 2023-04-15 11:57:00 [facility]) Gastroenterology Progress Note REPORT#:[id number] REPORT STATUS: Signed DATE:04/15/23 TIME: 1156 PATIENT: TEVIN NYE UNIT #: [id number] ROOM/BED: [place] [address] : 51 AGE: 73 SEX: M ATTEND: Pablo Kumar MD ADM AUTHOR: Clint Roman * ALL edits or amendments must be made on the electronic/computer document * Clint Roman Karuna 04/15/23 1157: Subjective Comments: no further rectal bleeding reported. no nausea or vomiting. no abdominal pain Review of Systems Additional notes: 10 point ros neg except hpi Objective General VS/I O: Last Documented: Result Date Time Pulse Ox 99 04/15 1047 B/P 127/69 04/15 1047 B/P Mean 88.5 04/15 1047 Temp 98.2 04/15 104 Pulse 64 04/15 1047 Resp 17 04/15 1047 O2 Delivery Nasal cannula 04/15 915 O2 Flow Rate 2 04/15 0915 FiO2 28 04/10 0800 24 hour I O ending at 0700: 04/15 0700 04/14 1900 Intake Total Output Total 800 Balance -800 Output, Urine 800 PATIENT WEIGHT: Weight (lb): Weight (oz): Weight (kg): 86.200 Medications: Active Meds + DC'd Last 24 Hrs Enoxaparin Sodium (lovENOX) 70 MG 08,1999 SUBQ Furosemide (LASIX 20MG INJ) 20 MG [...] PHARMACY TO DOSE) 1 EACH ASDIR SUBQ ( CKD) Sterile Water (WATER FOR IRRIGATION) DRESSING CHANGE [...] 4 MG Q4H PRN PRN IV Physical Exam General appearance: alert, awake HEENT: atraumatic, normocephalic Neck: full range of motion Cardiovascular: normal heart sounds, regular rate rhythm Respiratory: no distress, on oxygen Abdomen: non-tender, normal bowel sounds, soft, no distention Extremities: decreased range of motion Neuro/STONE BREAKER: alert, oriented X 3 Skin: dry, intact Ulcer: Type/cause: scab left foot. Psychiatry: normal affect, normal judgment/insight Results Findings/Data: Laboratory Tests 04/15/23614: [Embedded Image Not Available] Laboratory Tests 04/15 04/15 04/15 04/15 04/14 1046 0651 0615 614 2028 Chemistry Sodium (134 - 147 mEq/L) 138 [...] - 110 MG/DL) 215 H Laboratory Tests 04/1515 15 Hematology WBC (4.5 - 11.0 x10 3/uL) [...] (Auto) (14.0 - 32.0 %) 7.3 L Grainger % (Auto) (4.8 - 9.0 %) 9.6 H Eos % (Auto) (0.3 - 3.7 %) 1.8 Baso % (Auto) (0.0 - 2.0 %) 0.5 Neut # (Auto) (2.0 - 7.6 x10 3/uL) 3.10 Lymph # (Auto) (1.0 - 3.8 x10 3/uL) 0.28 L Grainger # (Auto) (0.1 - 0.8 x10 3/uL) [...] - 2.3 %) 5.9 H Diagnosis, Assessment Plan Free Text A P: Assessment dyspnea on exertion PE hx of prostate cancer, s/p radiation therapy anemia rectal bleeding, mild, resolved 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 He denies any significant issues with gi bleeding when previously on eliquis for prior pulmonary embolism. He reports intermittent mild rectal bleeding and a history of prostate cancer with completion of radiation therapy. Currently, denies any further bleeding. Plan: - monitor h/h, transfuse as needed - monitor for further bleeding - diet as tolerated - agree with pulm recs, plans for eventual transition to eliquis - ok from gi standpoint to transition to eliquis, benefits > risks - hematology following, appreciate input Roberto Galeano 04/16/23 1653: Attestations Physician Attestation Agree w/findings plan: Agree with the findings and plan as documented by Abel PRITCHARD; at 1253 at 1653 RPT #:[id number] END OF REPORT [facility] 2023-04-15 10:44:00 [facility] ([facility]) Hospitalist Progress Note REPORT#:[id number] REPORT STATUS: Signed DATE:04/15/23 TIME: 1044 PATIENT: TEVIN NYE UNIT #: [id number] ROOM/BED: [place] [address] : 51 AGE: 73 SEX: M ATTEND: Pablo Kumar MD ADM AUTHOR: Pablo Kumar MD * ALL edits or amendments must be made on the electronic/computer document * Subjective Chief complaint: doing fine. no cp. no sob. Objective General VS/I O: Vital Signs: Date Time Temp Pulse Resp [...] (lb): Weight (oz): Weight (kg): 86.200 Physical Exam General appearance: alert, awake Head/Eyes: atraumatic, clear cornea, EOMI Neck: supple/no meningismus Cardiovascular: normal heart sounds, regular rate rhythm, no gallop, no murmur , no rub Respiratory: aerating well, clear to auscultation, symmetric expansion Abdomen: non-tender, normal bowel sounds, soft, no distention Extremities: no clubbing, no cyanosis, no edema Musculoskeletal: normal inspection, painless range of motion Neuro/STONE BREAKER: alert, oriented X 3, CNII-XII intact Skin: dry, intact Ulcer: Type/cause: scab left foot. Results Radiology data: Laboratory Tests 04/15/23 0615: [Embedded Image Not Available] 04/14/23 0454: [Embedded Image Not Available] Current Medications Sig/Yas Start time Last Medication Dose Route Stop Time Status Admin Enoxaparin Sodium 70 MG 799,04/15 AC SUBQ 05/15 195 Furosemide 20 MG ONCE ONE 04/14 1415 DC 04/14 IV 04/14 1416 1533 Amiodarone HCl 200 MG DAILY 04/14 900 AC 04/15 PO 05/14 0859 0834 Magnesium Sulfate 100 ML ONCE ONE 04/14 0745 DC 04/14 IV 04/14 1144 0919 Enoxaparin Sodium 85 MG Q12H 04/12 1800 DC 04/15 SUBQ 05/12 1759 0528 Metoprolol Tartrate 25 MG Q8HR 04/10 1400 AC 04/15 PO 05/08 2259 0527 Atorvastatin Calcium 40 MG 2100 04/09 [...] 0822 Tamsulosin HCl 0.8 MG BEDTIME 04/08 230 AC 04/14 PO 05/08 2259 224 Acetaminophen 650 MG Q4H PRN PRN 04/08 1800 AC 04/13 PO 05/08 175 214 Ondansetron HCl 4 MG Q4H PRN PRN 04/08 1800 AC IV 05/08 175 Dose Instructions: (1)Sterile Water: DRESSING CHANGE Laboratory Tests: 04/15 04/15 04/15 04/14 04/14 0651 0615 0615 2028 162 Chemistry Sodium (134 - 147 mEq/L) 138 [...] Folate (3.1 - 17.5 ng/mL) 14.0 Hematology WBC (4.5 - 11.0 x10 3/uL) [...] (Auto) (14.0 - 32.0 %) 7.3 L Grainger % (Auto) (4.8 - 9.0 %) 9.6 H Eos % (Auto) (0.3 - 3.7 %) 1.8 Baso % (Auto) (0.0 - 2.0 %) 0.5 Neut # (Auto) (2.0 - 7.6 x10 3/uL) 3.10 Lymph # (Auto) (1.0 - 3.8 x10 3/uL) 0.28 L Grainger # (Auto) (0.1 - 0.8 x10 3/uL) 0.37 Eos # (Auto) (0.0 - 0.2 x10 3/uL) 0.07 Baso # (Auto) (0.0 - 0.2 x10 3/uL) 0.02 Abs Immat Gran (auto) (0.00 - 0.03 0.02 x10 3/uL) Add Manual Diff NO Immature Gran % (0.0 - 2.0 %) 0.5 Nucleated RBC % (0 - 0 %) 0.0 Nucleated RBCs # (Man) (0.0 - 0.1 0.00 x10 3/uL) Retic Count (auto) (0.3 - 2.3 %) 5.9 H 04/14 1106 Chemistry POC Glucose (70 - 110 MG/DL) 209 H Diagnosis, Assessment Plan Free Text DxA P Notes Free text DxA P notes: SOB cardiology and pulmonary seen on 2.5 to 3 liters of oxygen per n/c echo wnl will give lasix twenty mg one time dose check chest xray 04/14- CXR on 04/13 was negative. pulmonary following. elevated D-dimer V-Q scan with intermediate probability on therapeutic lovenox renally dosed for now 04/14- pulmonary following...worsening anemia, but guiaiac negaive anemia 04/14- hgb dropped to 8 today (9.7 two days ago). ask heme to see. h/o cancer. guiaiac negative. 04/15- hgb stable at 8. JERAMY with CKD renal seen on IVF creat improving COPD on home oxygen h/o CAD s/p CABG X4 on 03/04/2023 CTS consulted and seen DM accuchecks and SSI prn check A1C BG controlled HTN bp controlled resumed home meds HLD on statin stable Prostate cancer s/p XRT Debility per PT/OT could be a post acute rehab candidate consulted rehab recommend IRF check labs in am f/up gricel Rinaldi 04/14- awiaitalfonzo tranfer to rehab. folow h/h. ask heme to see. 04/15- h/h stable. cleared by GI to change lovenox to Eliquis if pulmonary wishes. at 1046 RPT #:[id number] END OF REPORT [facility] 2023-04-15 10:25:00 [facility] Pulmonology Progress Note REPORT#:[id number] REPORT STATUS: Signed DATE:04/15/23 TIME: 1025 PATIENT: TEVIN NYE UNIT #: [id number] ROOM/BED: [place] [address] : 51 AGE: 73 SEX: M ATTEND: Pablo Kumar MD ADM AUTHOR: Sharmila Alan * ALL edits or amendments must be made on the electronic/computer document * Subjective Comments: On NC, comfortable, no new complaints ROS All systems rev neg: except as marked Objective General VS/I O: Last Documented: Result Date Time O2 Delivery Nasal cannula 04/15 09 O2 Flow Rate 2 04/15 0915 Pulse Ox 96 04/15 0824 B/P 120/63 04/15 06 B/P Mean 82.1 04/15 06 Temp 36.8 04/15 0652 Pulse 57 04/15 0652 Resp 17 04/15 0652 FiO2 28 04/10 0800 24 hour I O ending at 0700: 04/15 0700 04/14 1900 Intake Total Output Total 800 Balance -800 Output, Urine 800 PATIENT WEIGHT: Weight (lb): Weight (oz): Weight (kg): 86.200 Medications: Active Meds + DC'd Last 24 Hrs Enoxaparin Sodium (lovENOX) 70 MG 0800,1999 SUBQ Furosemide [...] PHARMACY TO DOSE) 1 EACH ASDIR SUBQ ( CKD) Sterile Water (WATER FOR IRRIGATION) DRESSING CHANGE [...] 4 MG Q4H PRN PRN IV Physical Exam General appearance: alert, awake, oriented, no acute distress Head/eyes: atraumatic, normocephalic, PERRL, EOMI Neck: no JVD, no lymphadenopathy Cardiovascular: normal heart sounds, normal S1/S2, regular rate rhythm Respiratory/chest: decreased breath sounds, on oxygen, aerating well, symmetric expansion Abdomen: soft, no guarding Extremities: moves all, no clubbing, no cyanosis, no edema Neuro/STONE BREAKER: CNII-XII intact Skin: dry, intact Ulcer: Type/cause: scab left foot. Psychiatry: normal affect, normal judgment/insight, normal mood Results Findings/Data: Laboratory Tests 04/15/23 0615: [Embedded Image Not Available] Laboratory Tests 04/15 04/15 04/15 04/14 04/14 0651 0615 0615 2029 1626 Chemistry Sodium (134 - 147 mEq/L) 138 [...] - 110 MG/DL) 209 H Laboratory Tests 04/15 04/15 0615 0615 [...] (Auto) (14.0 - 32.0 %) 7.3 L Grainger % (Auto) (4.8 - 9.0 %) 9.6 H Eos % (Auto) (0.3 - 3.7 %) 1.8 Baso % (Auto) (0.0 - 2.0 %) 0.5 Neut # (Auto) (2.0 - 7.6 x10 3/uL) 3.10 Lymph # (Auto) (1.0 - 3.8 x10 3/uL) 0.28 L Grainger # (Auto) (0.1 - 0.8 x10 3/uL) [...] - 2.3 %) 5.9 H Diagnosis, Assessment Plan Free Text A P: Acute on chronic hypoxemic respiratory failure supplemental O2 as needed and wean as tolerated Pulmonary embolism Initially diagnosed in November 2022 at outside hospital; was on Eliquis from diagnosis through February. CTA chest 03/03/2023 was negative for pulmonary embolism. Patient was discharged home 03/13/2023 and told to discontinue taking Eliquis. -D-dimer 1496. -VQ scan with intermediate probability. 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 Check bilateral lower extremity Dopplers -> neg -Renally dose lovenox @ 1mg/kg once daily -d/w cardio. will ultimately AC with eliquis asa and off plavix. Continue lovenox for now. COPD No exacerbation. On Combivent and ipratropium nebs at home. -May need repeat pulmonary function test outpatient. 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 1.5 x 0.8 cm nodular opacity in RLL needs follow-up in 3 months CAD / PAD S/p CABG 03/04/2023 Cardiothoracic surgery following Pending echo - will need periph angio when cr improved JERAMY/CKD Nephrology consult Strict I O. Measure UOP. 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 given history - GI clearance prior to transitioning to Eliquis PT/OT Rehab eval at 1026 RPT #:[id number] END OF REPORT [facility] 2023-04-15 09:34:00 [facility] ([facility]) Rehab Progress Note REPORT#:[id number] REPORT STATUS: Signed DATE:04/15/23 TIME: 09 PATIENT: TEVIN NYE UNIT #: [id number] ROOM/BED: [place] [address] : 51 AGE: 73 SEX: M ATTEND: Pablo Kumar MD ADM AUTHOR: Nicolasa Galeano PA-C * ALL edits or amendments must be made on the electronic/computer document * Subjective Chief complaint: Pt seen and examined in bed. No acute distress. States that his breathing is getting better. States that he is always taken off his Prac on admission which causes hightened anxiety. Objective General VS: Vital Signs: Date Time Temp Pulse Resp [...] Weight (lb): Weight (oz): Weight (kg): 86.200 Medications: Active Meds + DC'd Last 24 Hrs Enoxaparin Sodium (lovENOX) 70 MG 0800,1999 SUBQ Furosemide (LASIX 20MG INJ) 20 MG ONCE ONE IV (DC) Amiodarone HCl (CORDARONE) 200 MG DAILY PO Enoxaparin Sodium (lovENOX) 85 MG Q12H SUBQ (DC) Metoprolol Tartrate (LOPRESSOR) 25 MG Q8HR PO Atorvastatin Calcium (LIPITOR) 40 MG 2100 PO Lactulose (LACTULOSE) 20 GM BID PRN PRN PO Miscellaneous Information (LOVENOX PHARMACY TO DOSE) 1 EACH ASDIR SUBQ ( CKD) Sterile Water (WATER FOR IRRIGATION) DRESSING CHANGE [...] 4 MG Q4H PRN PRN IV Functional Progress Functional progress: PT: Precautions: Fall Pre- Gait Mobility Y/N: Yes Safety addressed through use of: Gait Belt Verbal Cues Tactile Cues Extra Personnel Gait Device RW Vital Signs/Oxygen: Yes Weightbearing: No Restriction Ambulation Distance: 100 FT 200 FT Progression: Forward Assistance Level: Minimal Assistance Gait Deviations: SHORT STEPS FLEXED FORWARD Antalgic Gait Left Document Pain/Education: No Advanced Progression: No Effects of Treatment: Yoder of care decreased Circulation improved Post TX Precautions: FALL WC TO FOLLOW Review Plan of Care: Yes PT charges: Gait Training [id number] Gait Cmt: PATIENT COULD AMBULATE FOR 100 FT AND 200 FT USING RW WITH MIN. ASSSIST, HAD TO REST MCFP DUE TO SHORTNESS OF BREATH , O2 STATE WAS 91 % ON ROOM AIR. WHEN OXYGEN WAS REPLACED AND O2 STAT INCREASED TO 97% PATIENT ANXIOUS AND EASILY GETS NERVOUS. If this is the patient's last treatment, this entry serves as the discharge summary: Y Start Time: 1435 Stop Time: 1450 Treatment Time: ( minutes) 0:15 Completed by: Sebastian Harrison Conference/Supervising PT: Yes Supervising Therapist: MONICARCSebastian Yanez Reviewed and Approved By: SEBASTIAN HARRISON, PT Physical Exam General appearance: alert, awake Psych: alert, normal affect Neck: non-tender, supple Cardiovascular: regular rate rhythm, S1/S2 Respiratory: diminished breath sounds, aerating well Abdomen: bowel sounds present, soft, non-tender Ulcer: Type/cause: scab left foot. Musculoskeletal - general: Musculoskeletal - general: normal muscle mass Neuro/STONE BREAKER: alert, oriented X 3, CNII-XII intact, normal speech, no sensory deficits Results Findings/Data: Laboratory Tests: 04/15 04/15 04/15 04/14 04/14 0651 0615 0615 2029 1626 Chemistry Sodium (134 - 147 mEq/L) 138 [...] Folate (3.1 - 17.5 ng/mL) 14.0 Hematology WBC (4.5 - 11.0 x10 3/uL) [...] (Auto) (14.0 - 32.0 %) 7.3 L Grainger % (Auto) (4.8 - 9.0 %) 9.6 H Eos % (Auto) (0.3 - 3.7 %) 1.8 Baso % (Auto) (0.0 - 2.0 %) 0.5 Neut # (Auto) (2.0 - 7.6 x10 3/uL) 3.10 Lymph # (Auto) (1.0 - 3.8 x10 3/uL) 0.28 L Grainger # (Auto) (0.1 - 0.8 x10 3/uL) 0.37 Eos # (Auto) (0.0 - 0.2 x10 3/uL) 0.07 Baso # (Auto) (0.0 - 0.2 x10 3/uL) 0.02 Abs Immat Gran (auto) (0.00 - 0.03 0.02 x10 3/uL) Add Manual Diff NO Immature Gran % (0.0 - 2.0 %) 0.5 Nucleated RBC % (0 - 0 %) 0.0 Nucleated RBCs # (Man) (0.0 - 0.1 0.00 x10 3/uL) Retic Count (auto) (0.3 - 2.3 %) 5.9 H 04/14 04/14 1106 1023 Chemistry POC Glucose (70 - 110 MG/DL) 209 H Coagulation Heparin Anti-Xa, LM Wt (0.60 - 1.00 IU/mL) 0.96 Diagnosis, Assessment Plan Free Text A P: 73 year old male with acute on chronic respiratory failure, elevated D-dimer, JERAMY on CKD, recent CABG and weakness. Continue with PT/OT. Recommend IRF placement for his ongoing medical and rehabilitation needs. He is willing to stay here at [facility]. 04/14: Continue with therapy as tolerated. Pending IRF transfer. Encouraged increased time EOB/OOB to build endurance, balance and strength. 04/15: Gi cleared to start on anticoagulation given LUIS servin. Cr stable and trending down. Hematology consulted due to leukopenia along with anemia. Pt noted with elevated retic count. ? may need bone marrow bx. PT/OT continued. OOB daily. Rehab attestation: Face to face exam completed. Treatment plan discussed with patient. at 2134 RPT #:[id number] END OF REPORT [facility] 2023-04-15 08:06:00 [facility] ([facility] Nephrology Progress Note REPORT#:[id number] REPORT STATUS: Signed DATE:04/15/23 TIME: 805 PATIENT: TEVIN NYE UNIT #: [id number] ROOM/BED: [place] [id number] : 51 AGE: 73 SEX: M ATTEND: Pablo Kumar MD ADM AUTHOR: Glendy Paz MD * ALL edits or amendments must be made on the electronic/computer document * Subjective Chief complaint: Follow-up of acute renal failure, ATN/AIN Comments: Breathing better Objective General VS/I O: Vital Signs: Date Time Temp Pulse Resp [...] 2 cannula 04/147 99 Nasal 2 cannula 04/14 203 98.2 39 16 126/51 76.2 92 Nasal cannula 04/14 2000 Nasal 2 cannula 04/14 1557 98.1 47 17 137/76 96.5 93 04/14 1107 98.1 69 17 153/70 97.5 98 04/14 0930 Nasal 2 cannula 04/14 0850 100 Nasal 3 cannula 24 hour I O ending at 0700: 08 0700 04/14 1900 Intake Total Output Total 800 Balance -800 Output, Urine 800 PATIENT WEIGHT: Weight (lb): Weight (oz): Weight (kg): 86.200 Medications Active Meds + DC'd Last 24 Hrs Furosemide (LASIX 20MG INJ) 20 MG ONCE [...] PHARMACY TO DOSE) 1 EACH ASDIR SUBQ ( CKD) Sterile Water (WATER FOR IRRIGATION) DRESSING CHANGE [...] 4 MG Q4H PRN PRN IV Physical Exam General appearance: alert, awake, oriented, no acute distress Head/eyes: atraumatic, normocephalic ENT: moist mucous membranes Neck: supple/no meningismus, no JVD Cardiovascular: normal heart sounds, no rub Respiratory: crackles (AT BASES) Genitourinary: no bladder distention Extremities: no edema Neuro/STONE BREAKER: alert, oriented X 3 Ulcer: Type/cause: scab left foot. Results Findings/Data: Laboratory Tests 04/15 04/14 04/14 04/14 0651 2029 1626 1106 Chemistry POC Glucose (70 - [...] (Auto) (14.0 - 32.0 %) 7.3 L Grainger % (Auto) (4.8 - 9.0 %) 9.6 H Eos % (Auto) (0.3 - 3.7 %) 1.8 Baso % (Auto) (0.0 - 2.0 %) 0.5 Neut # (Auto) (2.0 - 7.6 x10 3/uL) 3.10 Lymph # (Auto) (1.0 - 3.8 x10 3/uL) 0.28 L Grainger # (Auto) (0.1 - 0.8 x10 3/uL) [...] - 2.3 %) 5.9 H Diagnosis, Assessment Plan Free Text A P: Assessment/plan: 1. Acute renal failure most likely secondary to volume depletion, overdiuresis and ATN/AIN with Bactrim and lisinopril on board. Cr further better 2.9-2.4-1.9 > 1.2 >1.3, stable today, renal sono without hydronephrosis Lasix 20 mg IV x1 today 2. Coronary artery disease: Status post CABG, continue home medications 3. COPD: Symptomatic treatment 4. History of prostate cancer, s/p radiation 2021 5. Anemia: Requested stool occult blood-not sent yet, and iron studies reviewed- ok, transfuse as needed for hemoglobin less than 7. hgb 8.0 pending rehab. stable from nephrology for discharge. at 1624 RPT #:[id number] END OF REPORT [facility] 2023-04-14 23:05:00 [facility] ([facility]) Avery/Oncology Consult Note REPORT#:[id number] REPORT STATUS: Signed DATE:04/14/23 TIME: 2304 PATIENT: TEVIN NYE UNIT #: [id number] ROOM/BED: [facility] : 51 AGE: 73 SEX: M ATTEND: Pablo Kumar MD ADM AUTHOR: Dakota Arvizu MD * ALL edits or amendments must be made on the electronic/computer document * History of Present Illness Requesting clinician: Pablo Kumar MD Reason for consult: Severe anemia, patient on anti-coagulation. Chief complaint: SOB. HPI: This is a 73-year-old man with past medical history remarkable pulmonary embolism in November 2022 for which he was treated with Eliquis which she continued through February 2023 at which point a repeat CT of the chest that was negative and therefore Eliquis was discontinued, coronary artery disease, status post 2 coronary artery bypass graft surgery in February 2023. He also has a history of prostate cancer for which she underwent radiation in 2021, COPD with home oxygen. He presented to the hospital with complaints of progressively worsening shortness of breath. Patient was found to be [...] COPD. There is a right lower lobe nodule , 1.5 x [address] of [...] serum ferritin of 255.2. History - Adult longitudinal Past medical history: Reports: COPD, Diabetes mellitus, Hypertension, BPH, Dyslipidemia. Additional medical history: CAD s/p CABG 2022 Pulmonary embolism 2022 COPD Prostate cancer s/p radiation 2021 Hypertension Hyperlipidemia Diabetes Knee surgery Carotid artery stenosis CKD Past surgical history: Reports: Knee procedure, Lung surgery (collapsed lung). Additional surgical history: knee surgery Additional family history: none Alcohol use: Denies EtOH use Drug use: Denies recreational drugs Smoking status for patients 13 years old or older: Former Smoker Additional social history: LIVES AT HOME ALONE. HIS YOUNGER BROTHER LIVES ACROSS THE STREET. SSH. NO STAIRS. HE WAS IND PLOF. NO DME USED . OCCASSIONAL CANE USED. NO OXYGEN Medications: Home Medications: Medication Dose/Rte/Freq Days Qty Entered Last Max Daily Dose Reviewed OXYBUTYNIN (DITROPAN) 5 MG PO BID 03/03/23 04/08/23 Strength: 5 MG TAB 1937 1837 FLUoxetine (PROzac) 10 MG PO QAM 03/03/23 04/08/23 Strength: 10 MG CAP 1938 1842 LATANOPROST 1 DROP EACH EYE 03/03/23 04/08/23 (XALATAN 0.005% OPHTH BEDTIME 1939 1843 SOLN) Strength: 0.005 % OPHTH.SOLN INSULIN LISPRO 6 03/03/23 04/08/23 (HumaLOG KWIKPEN (3mL)) 1942 1844 Strength: 100 UNIT/ML INSULN.PEN CALCIUM CARBONATE/VIT 2 TAB PO DAILY 03/03/23 04/08/23 D3 1944 1836 (CALCIUM CARB/VIT D3 500 MG/200 UNITS) Strength: 500 MG CALCIUM-5 MCG (200 UNIT) TAB CYANOCOBALAMIN 100 MCG PO DAILY 03/03/23 04/08/23 (VITAMIN B-12) 1944 1843 Strength: 100 MCG TAB TAMSULOSIN ER (FLOMAX) 0.8 MG PO BEDTIME 2 03/03/23 04/08/23 Strength: 0.4 MG 1938 1838 CAP.SR.24H INSULIN LISPRO (HumaLOG) 30 03/03/23 04/08/23 Strength: 100 UNIT/ML 1943 1844 VIAL FUROSEMIDE (LASIX) 20 MG PO BID 04/08/23 04/08/23 Strength: 20 MG TAB 1840 1840 BRIMONIDINE 1 DROP EACH EYE BID 04/08/23 04/08/23 (ALPHAGAN 0.2% OPHTH 1845 1848 SOLN) Strength: 0.2 % OPHTH.SOLN SULFAMETHOXAZOLE/TMP 1 TAB PO BID 04/08/23 04/08/23 (BACTRIM DS 800/160 MG) 184 184 Strength: 800 MG-160 MG TAB HYDROCHLOROTHIAZIDE 25 MG PO DAILY 04/08/23 04/08/23 (HYDRODIURIL) 184 184 Strength: 25 MG TAB LISINOPRIL (ZESTRIL) 20 MG PO DAILY 04/08/23 04/08/23 Strength: 20 MG TAB 1849 184 ATORVASTATIN (LIPITOR) 40 MG PO 2100 30 30 03/13/23 04/08/23 Strength: 40 MG TAB 1446 1841 METOPROLOL TARTRATE 25 MG PO Q12HR 30 60 03/13/23 04/08/23 (LOPRESSOR) 1446 1842 Strength: 25 MG TAB amLODIPine (NORVASC) 10 MG PO DAILY 30 30 03/13/23 04/08/23 Strength: 10 MG TAB 1446 1842 ASPIRIN 81 MG PO DAILY 30 30 03/13/23 04/08/23 Strength: 81 MG TAB.CHEW 1447 1836 Current Hospital Medications: Autonomic Drugs Sig/Yas Start time Last Medication Dose Route Stop Time Status Admin Albuterol/Ipratropium 3 ML RTQ4H 04/09 0000 AC 04/14 (DUONEB) NEB 05/09 0000 2056 Tamsulosin HCl 0.8 MG BEDTIME 04/08 2300 AC 04/14 (Flomax 0.4 mg) PO 05/08 225 2247 Blood Formation,Coagulation Sig/Yas Start time Last Medication [...] 04/16 1529 ([facility] TO DOSE) Dose Instructions: (1)Sterile Water (WATER FOR IRRIGATION): DRESSING CHANGE Allergies: Coded Allergies: Penicillins (USE COMMENT BUTTON 03/03/23) PT STATES THAT HE WAS JUST TOLD THAT HE'S ALLERGIC TO PENICILLIN AND ITS NOT GONNA WORK FOR HIM Objective Physical Exam VS: Vital Signs Date Temp Pulse Resp B/P B/P Mean Pulse Ox FiO2 04/14 36.7-36.8 39-86 14-17 108-153/51-79 71.7-100.3 92-100 Last Documented: Result Date Time Pulse Ox 98 04/14 2250 B/P 134/72 04/14 2250 B/P Mean 92 04/14 2250 O2 Delivery Nasal cannula 04/14 2250 O2 Flow Rate 2 04/14 2250 Pulse 59 04/14 2250 Resp 14 04/14 2250 Temp 36.8 04/14 2031 FiO2 28 04/10 800 PATIENT WEIGHT: Weight (lb): Weight (oz): Weight (kg): 86.200 General appearance: alert, awake HEENT: normocephalic Neck: full range of motion, non-tender, supple/no meningismus, no JVD, no lymphadenopathy Cardiovascular: regular rate and rhythm Respiratory: decreased breath sounds Abdomen: non-tender, normal bowel sounds, soft, no distention, no guarding, no mass/organomegaly, no rebound Extremities: moves all, normal capillary refill, no edema Musculoskeletal: full range of motion, normal inspection Neuro/STONE BREAKER: alert, oriented X 3 Ulcer: Type/cause: scab left foot. Results Findings/Data: Laboratory Tests 04/14/23 0454: [Embedded Image Not Available] Laboratory Tests 04/14 1626 1106 0719 0454 Chemistry Sodium (134 - 147 mEq/L) [...] 8.3 Ionized Calcium Breana (1.09 - 1.30 1.16 MMOL/L) Magnesium (1.80 - 2.40 mg/dL) 1.39 L Total Bilirubin (0.0 - 1.0 mg/dL) 0.20 AST (15 - 37 IUnit/L) 17 ALT (30 - 65 IUnit/L) 19 L Total Alk Phosphatase (20 - 125 80 IUnit/L) Total Protein (6.4 - 8.2 g/dL) 5.6 [...] (Auto) (14.0 - 32.0 %) 9.7 L Grainger % (Auto) (4.8 - 9.0 %) 8.6 Eos % (Auto) (0.3 - 3.7 %) 1.4 Baso % (Auto) (0.0 - 2.0 %) 0.9 Neut # (Auto) (2.0 - 7.6 x10 3/uL) 2.74 Lymph # (Auto) (1.0 - 3.8 x10 3/uL) 0.34 L Grainger # (Auto) (0.1 - 0.8 x10 3/uL) [...] (0.0 - 0.1 x10 3/uL) 0.00 Radiology data: Current Medications Sig/Yas Start time Last Medication [...] 04/09 0000 AC 04/14 NEB 05/09 0000 2057 Tamsulosin HCl 0.8 MG BEDTIME 04/08 2300 AC 04/14 PO 05/08 2259 2247 Acetaminophen 650 MG Q4H PRN PRN 04/08 1800 AC 04/13 PO 05/08 1759 2147 Ondansetron HCl 4 MG Q4H PRN PRN 04/08 1800 AC IV 05/08 1759 Dose Instructions: (1)Sterile Water: DRESSING CHANGE Results: labs reviewed, vital signs reviewed Diagnosis, Assessment Plan Free Text A P: ASSESSMENT: * Normocytic, hypochromic anemia. This seems to be an anemia of chronic disease. With iron panel being normal it is less likely to be GI blood loss. Considering his leukopenia I suspect that he may be developing underlying primary bone marrow disease such as MDS. * Recurrent pulmonary embolism based on intermediate probability VQ scan. * History of coronary artery disease, status post 2 coronary artery bypass graft surgery. PLAN: * Complete anemia work-up by ordering reticulocyte count, haptoglobin, direct Ivet test, LDH, B12, serum folate and serum protein electrophoresis. * We will consider patient for a bone marrow aspiration and biopsy. * Monitor CBC. * Patient may need to continue with anticoagulation considering benefits more than the risk. * Apparently his lower GI bleed is associated with constipation. * I will continue to follow. * Thank you very much for this consultation. at 2327 RPT #:[id number] END OF REPORT [facility] 2023-04-14 21:57:00 [facility] ([facility]) Podiatry Progress Note REPORT#:[id number] REPORT STATUS: Signed DATE:04/14/23 TIME: 2156 PATIENT: TEVIN NYE UNIT #: [id number] ROOM/BED: [place] [id number] : 51 AGE: 73 SEX: M ATTEND: Pablo Kumar MD ADM AUTHOR: Andres Rachel DPM * ALL edits or amendments must be made on the electronic/computer document * Subjective Chief complaint: left foot ulcer Patient reports: no confusion, no dizziness, no headache, no heartburn Comments: pt very pleasant. doesnt have prevalon boots. is interested. dressing had fallen off of the foot. pt has pain. only takes tylenol. events notes. states PT done and went well Objective General VS: Last Documented: Result Date Time Pulse Ox 99 04/14 2057 O2 Delivery Nasal cannula 04/14 2057 O2 Flow Rate 2 04/14 2057 B/P 126/51 04/14 2031 B/P Mean 76.2 04/14 2031 Temp 36.8 04/14 2031 Pulse 39 04/14 2031 Resp 16 04/14 2031 FiO2 28 04/10 800 PATIENT WEIGHT: Weight (lb): Weight (oz): Weight (kg): 86.200 Medications: Active Meds + DC'd Last 24 Hrs Furosemide (LASIX 20MG INJ) 20 MG ONCE [...] PHARMACY TO DOSE) 1 EACH ASDIR SUBQ ( CKD) Sterile Water (WATER FOR IRRIGATION) DRESSING CHANGE [...] 4 MG Q4H PRN PRN IV I O: 24 hour I O ending at 0700: 08/07 0700 08/06 1900 Intake Total 75.00 Output Total 325 Balance -250.00 Intake, IV 75.00 Output, Urine 325 Dietitian nutrition assessment The data set between the solid lines has been imported from the dietitian's assessment. BMI Calculated: 29.8 Nutrition related diagnosis: Nutrition diagnosis details: Nutrition problem: Nutrition etiology: Nutrition signs and symptoms: Nutrition prescription: Dietitian name: Assessment completed: Physical Exam General appearance: alert, awake, oriented, conversational, mental status normal Wound/incision: Location: bilat foot Site condition: small pinpoint ulcer right foot. ulcer left forefoot dorsal. partial and full thickness. no erythema. no depth. LE vascular pulse assess: Nonpalpable R posterior tibialis, Nonpalpable L posterior tibialis, Nonpalpable R dorsalis pedis, Nonpalpable L dorsalis pedis Results Findings/Data: Laboratory Tests: 04/14 1626 1106 1023 0719 Chemistry POC Glucose (70 - 110 MG/DL) 204 H 215 H 209 H 200 H Coagulation Heparin Anti-Xa, LM Wt (0.60 [...] (Auto) (14.0 - 32.0 %) 9.7 L Grainger % (Auto) (4.8 - 9.0 %) 8.6 Eos % (Auto) (0.3 - 3.7 %) 1.4 Baso % (Auto) (0.0 - 2.0 %) 0.9 Neut # (Auto) (2.0 - 7.6 x10 3/uL) 2.74 Lymph # (Auto) (1.0 - 3.8 x10 3/uL) 0.34 L Grainger # (Auto) (0.1 - 0.8 x10 3/uL) [...] 3/uL) 0.00 Diagnosis, Assessment Plan Free Text A P: ulcer left foot. pain PVD ulcer is benign...starting to peel continue local wound care. no xray found. venous u/s neg NIAS: pvd as expected. rec'd to pt prevalon boots. covering for Dr. Washington at 6615 RPT #:[id number] END OF REPORT [facility] 2023-04-14 14:58:00 [facility] ([facility]) GE Consultation Note REPORT#:[id number] REPORT STATUS: Signed DATE:04/14/23 TIME: 1458 PATIENT: TEVIN NYE UNIT #: [id number] ROOM/BED: [place] [id number] : 51 AGE: 73 SEX: M ATTEND: Pablo Kumar MD ADM AUTHOR: Clint Roman * ALL edits or amendments must be made on the electronic/computer document * Clint Roman 04/14/23 1458: History of Present Illness HPI: Patient is a 73 year old male with [...] concerns for recurrent PE. GI consulted for clearance for anticoagulation with eliquis. Patient was initially found to have a PE in November 2022, he was on eliquis till about the end of February, he had a repeat CTA that was negative, and was told to discontinue anticoagulation. He states he did not have any signficant issues with bleeding while [...] surgery, but states he never had a gi bleed requiring transfusion. Last egd and colonoscopy were [...] pain, melena, or hematemesis. History - Adult longitudinal Past medical history: Reports: COPD, Diabetes mellitus, Hypertension, BPH, Dyslipidemia. Additional medical history: CAD s/p CABG 2022 Pulmonary embolism 2022 COPD Prostate cancer s/p radiation 2021 Hypertension Hyperlipidemia Diabetes Knee surgery Carotid artery stenosis CKD Past surgical history: Reports: Knee procedure, Lung surgery (collapsed lung). Additional surgical history: knee surgery Additional family history: none Alcohol use: Denies EtOH use Drug use: Denies recreational drugs Smoking status for patients 13 years old or older: Former Smoker Additional social history: LIVES AT HOME ALONE. HIS YOUNGER BROTHER LIVES ACROSS THE STREET. SSH. NO STAIRS. HE WAS IND PLOF. NO DME USED . OCCASSIONAL CANE USED. NO OXYGEN Medications: Home Medications: Medication Dose/Rte/Freq Days Qty Entered Last Max Daily Dose Reviewed OXYBUTYNIN (DITROPAN) 5 MG PO BID 03/03/23 04/08/23 Strength: 5 MG TAB 1937 1837 FLUoxetine (PROzac) 10 MG PO QAM 03/03/23 04/08/23 Strength: 10 MG CAP 1938 1842 LATANOPROST 1 DROP EACH EYE 03/03/23 04/08/23 (XALATAN 0.005% OPHTH BEDTIME 1939 1843 SOLN) Strength: 0.005 % OPHTH.SOLN INSULIN LISPRO 6 03/03/23 04/08/23 (HumaLOG KWIKPEN (3mL)) 1942 1844 Strength: 100 UNIT/ML INSULN.PEN CALCIUM CARBONATE/VIT 2 TAB PO DAILY 03/03/23 04/08/23 D3 1944 1836 (CALCIUM CARB/VIT D3 500 MG/200 UNITS) Strength: 500 MG CALCIUM-5 MCG (200 UNIT) TAB CYANOCOBALAMIN 100 MCG PO DAILY 03/03/23 04/08/23 (VITAMIN B-12) 1944 1843 Strength: 100 MCG TAB TAMSULOSIN ER (FLOMAX) 0.8 MG PO BEDTIME 2 03/03/23 04/08/23 Strength: 0.4 MG 1938 1838 CAP.SR.24H INSULIN LISPRO (HumaLOG) 30 03/03/23 04/08/23 Strength: 100 UNIT/ML 1943 1844 VIAL FUROSEMIDE (LASIX) 20 MG PO BID 04/08/23 04/08/23 Strength: 20 MG TAB 1840 1840 BRIMONIDINE 1 DROP EACH EYE BID 04/08/23 04/08/23 (ALPHAGAN 0.2% OPHTH 1845 1848 SOLN) Strength: 0.2 % OPHTH.SOLN SULFAMETHOXAZOLE/TMP 1 TAB PO BID 04/08/23 04/08/23 (BACTRIM DS 800/160 MG) 1847 1848 Strength: 800 MG-160 MG TAB HYDROCHLOROTHIAZIDE 25 MG PO DAILY 04/08/23 04/08/23 (HYDRODIURIL) 1847 1848 Strength: 25 MG TAB LISINOPRIL (ZESTRIL) 20 MG PO DAILY 04/08/23 04/08/23 Strength: 20 MG TAB 1841848 ATORVASTATIN (LIPITOR) 40 MG PO 2100 30 30 03/13/23 04/08/23 Strength: 40 MG TAB 1446 184 METOPROLOL TARTRATE 25 MG PO Q12HR 30 60 03/13/23 04/08/23 (LOPRESSOR) 1446 184 Strength: 25 MG TAB amLODIPine (NORVASC) 10 MG PO DAILY 30 30 03/13/23 04/08/23 Strength: 10 MG TAB 1446 184 ASPIRIN 81 MG PO DAILY 30 30 03/13/23 04/08/23 Strength: 81 MG TAB.CHEW 1447 1836 Allergies: Coded Allergies: Penicillins (USE COMMENT BUTTON 03/03/23) PT STATES THAT HE WAS JUST TOLD THAT HE'S ALLERGIC TO PENICILLIN AND ITS NOT GONNA WORK FOR HIM Review of Systems Additional notes: 10 point ros neg except hpi Objective Physical Exam VS/I O: Last Documented: Result Date Time Pulse Ox 98 04/14 1107 B/P 153/70 04/14 1107 B/P Mean 97.5 04/14 1107 Temp 98.1 04/14 1107 Pulse 69 04/14 1107 Resp 17 04/14 1107 O2 Delivery Nasal cannula 04/14 0850 O2 Flow Rate 3 04/14 0850 FiO2 28 04/10 0800 24 hour I O ending at 0700: 04/14 0700 04/13 1900 Intake Total 75.00 Output Total 325 Balance -250.00 Intake, IV 75.00 Output, Urine 325 PATIENT WEIGHT: Weight (lb): Weight (oz): Weight (kg): 86.200 Medications: Active Meds + DC'd Last 24 Hrs Furosemide (LASIX 20MG INJ) 20 MG ONCE ONE IV (DC) Amiodarone HCl (CORDARONE) 200 MG DAILY PO Magnesium Sulfate (MAGNESIUM SULFATE 4GM/SWFI 100ML) 100 ML ONCE ONE IV (DC) Enoxaparin Sodium (lovENOX) 85 MG Q12H SUBQ Metoprolol Tartrate (LOPRESSOR) 25 MG Q8HR PO Atorvastatin Calcium (LIPITOR) 40 MG 2100 PO Lactulose (LACTULOSE) 20 GM BID PRN PRN PO Miscellaneous Information ([facility] TO DOSE) 1 EACH ASDIR SUBQ ( CKD) Sterile Water (WATER FOR IRRIGATION) DRESSING CHANGE [...] PRN PRN IV General appearance: alert, awake, oriented HEENT: atraumatic, normocephalic Neck: full range of motion Cardiovascular: normal heart sounds, regular rate rhythm Respiratory: no distress, on oxygen Abdomen: non-tender, normal bowel sounds, soft, no distention Extremities: decreased range of motion Neuro/STONE BREAKER: alert, oriented X 3 Skin: dry, intact Ulcer: Type/cause: scab left foot. Psychiatry: normal affect, normal judgment/insight Results Findings/Data: Laboratory Tests 04/14/23 0454: [Embedded Image Not Available] Laboratory Tests 04/14 04/14 04/14 04/13 04/13 1106 0719 0454 2140 1619 Chemistry Sodium (134 - 147 mEq/L) 139 [...] 8.3 Ionized Calcium Breana (1.09 - 1.30 1.16 MMOL/L) Magnesium (1.80 - 2.40 mg/dL) 1.39 L Total Bilirubin (0.0 - 1.0 mg/dL) 0.20 AST (15 - 37 IUnit/L) 17 ALT (30 - 65 IUnit/L) 19 L Total Alk Phosphatase (20 - 125 80 IUnit/L) Total Protein (6.4 - 8.2 g/dL) 5.6 [...] (Auto) (14.0 - 32.0 %) 9.7 L Grainger % (Auto) (4.8 - 9.0 %) 8.6 Eos % (Auto) (0.3 - 3.7 %) 1.4 Baso % (Auto) (0.0 - 2.0 %) 0.9 Neut # (Auto) (2.0 - 7.6 x10 3/uL) 2.74 Lymph # (Auto) (1.0 - 3.8 x10 3/uL) 0.34 L Grainger # (Auto) (0.1 - 0.8 x10 3/uL) [...] 1640 Occult Blood - COMP STOOL Radiology data: Recent Impressions: RADIOLOGY - XR CHEST 1 V 04/13 1720 Report Impression - Status: SIGNED Entered: 04/14/2023 0616 IMPRESSION: No acute cardiopulmonary abnormality. Impression By: Erasmo - Margarito Borges M.D. Diagnosis, Assessment Plan Free Text DxA P Notes Free Text DxA P Notes: Assessment dyspnea on exertion PE hx of prostate cancer, s/p radiation therapy [...] radiation therapy. Currently, denies any further bleeding. Plan: - monitor h/h, transfuse as needed - monitor for further bleeding - diet as tolerated - agree with pulm recs, plans for eventual transition to eliquis - ok from gi standpoint to transition to eliquis, benefits > risks Roberto Galeano 04/16/23 1653: Attestations Physician Attestation Agree w/findings plan: Agree with the findings and plan as documented by Abel PRITCHARD; at 1704 at 1652 RPT #:[id number] END OF REPORT [facility] 2023-04-14 12:10:00 [facility] ([facility]) Pulmonology Progress Note REPORT#:[id number] REPORT STATUS: Signed DATE:04/14/23 TIME: 1210 PATIENT: TEVIN NYE UNIT #: [id number] ROOM/BED: [place] [id number] : 51 AGE: 73 SEX: M ATTEND: Pablo Kumar MD ADM AUTHOR: Sharmila Alan * ALL edits or amendments must be made on the electronic/computer document * Subjective Comments: On NC, feels better, no new complaints ROS All systems rev neg: except as marked Objective General VS/I O: Last Documented: Result Date Time Pulse Ox [...] Weight (lb): Weight (oz): Weight (kg): 86.200 Medications: Active Meds + DC'd Last 24 Hrs Amiodarone HCl (CORDARONE) 200 MG DAILY PO [...] PHARMACY TO DOSE) 1 EACH ASDIR SUBQ ( CKD) Sterile Water (WATER FOR IRRIGATION) DRESSING CHANGE [...] 4 MG Q4H PRN PRN IV Physical Exam General appearance: alert, awake, oriented, no acute distress Head/eyes: atraumatic, normocephalic, PERRL, EOMI Neck: no JVD, no lymphadenopathy Cardiovascular: normal heart sounds, normal S1/S2, regular rate rhythm Respiratory/chest: decreased breath sounds, on oxygen, aerating well, symmetric expansion Abdomen: soft, no guarding Extremities: moves all, no clubbing, no cyanosis, no edema Neuro/STONE BREAKER: CNII-XII intact Skin: dry, intact Ulcer: Type/cause: scab left foot. Psychiatry: normal affect, normal judgment/insight, normal mood Results Findings/Data: Laboratory Tests 04/14/23 0454: [Embedded Image Not Available] Laboratory Tests 04/14 04/14 04/14 04/13 04/13 1106 0719 0454 2140 1619 Chemistry Sodium (134 - 147 mEq/L) 139 [...] (Auto) (14.0 - 32.0 %) 9.7 L Grainger % (Auto) (4.8 - 9.0 %) 8.6 Eos % (Auto) (0.3 - 3.7 %) 1.4 Baso % (Auto) (0.0 - 2.0 %) 0.9 Neut # (Auto) (2.0 - 7.6 x10 3/uL) 2.74 Lymph # (Auto) (1.0 - 3.8 x10 3/uL) 0.34 L Grainger # (Auto) (0.1 - 0.8 x10 3/uL) [...] 1640 Occult Blood - COMP STOOL Radiology data: Recent Impressions: RADIOLOGY - XR CHEST 1 V 04/13 1720 Report Impression - Status: SIGNED Entered: 04/14/2023 0616 IMPRESSION: No acute cardiopulmonary abnormality. Impression By: Erasmo - Margarito Borges M.D. Results: x-ray personally reviewed Diagnosis, Assessment Plan Free Text A P: Acute on chronic hypoxemic respiratory failure supplemental O2 as needed and wean as tolerated Pulmonary embolism Initially diagnosed in November 2022 at outside hospital; was on Eliquis from diagnosis through February. CTA chest 03/03/2023 was negative for pulmonary embolism. Patient was discharged home 03/13/2023 and told to discontinue taking Eliquis. -D-dimer 1496. -VQ scan with intermediate probability. 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 Check bilateral lower extremity Dopplers -> neg -Renally dose lovenox @ 1mg/kg once daily -d/w cardio. will ultimately AC with eliquis asa and DC plavix. Continue lovenox for now. COPD No exacerbation. On Combivent and ipratropium nebs at home. -May need repeat pulmonary function test outpatient. 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 1.5 x 0.8 cm nodular opacity in RLL needs follow-up in 3 months CAD / PAD S/p CABG 03/04/2023 Cardiothoracic surgery following Pending echo - will need periph angio when cr improved JERAMY/CKD Nephrology consult Strict I O. Measure UOP. 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 given history - GI clearance prior to transitioning to Eliquis at 1213 RPT #:[id number] END OF REPORT [facility] 2023-04-14 11:26:00 [facility] ([facility] Nephrology Progress Note REPORT#:[id number] REPORT STATUS: Signed DATE:04/14/23 TIME: 1126 PATIENT: TEVIN NYE UNIT #: [id number] ROOM/BED: [place] [id number] : 51 AGE: 73 SEX: M ATTEND: Pablo Kumar MD ADM AUTHOR: Glendy Paz MD * ALL edits or amendments must be made on the electronic/computer document * Subjective Chief complaint: Follow-up of acute renal failure, ATN/AIN Comments: Breathing better Objective General VS/I O: Vital Signs: Date Time Temp Pulse Resp [...] Weight (lb): Weight (oz): Weight (kg): 86.200 Medications Active Meds + DC'd Last 24 Hrs Amiodarone HCl (CORDARONE) 200 MG DAILY PO [...] PHARMACY TO DOSE) 1 EACH ASDIR SUBQ ( CKD) Sterile Water (WATER FOR IRRIGATION) DRESSING CHANGE ASDIR PRN IRR Sodium Chloride (SODIUM CHLORIDE 0.9%) 1,000 ML .[id number] IV (DC) Aspirin (ASPIRIN) 81 MG DAILY [...] 4 MG Q4H PRN PRN IV Physical Exam General appearance: alert, awake Head/eyes: atraumatic, normocephalic ENT: moist mucous membranes Neck: supple/no meningismus, no JVD Cardiovascular: normal heart sounds, no rub Respiratory: crackles (AT BASES) Genitourinary: no bladder distention Extremities: no edema Neuro/STONE BREAKER: alert, oriented X 3 Ulcer: Type/cause: scab left foot. Results Findings/Data: Laboratory Tests 04/14 04/14 04/13 04/13 04/13 0719 0454 2140 1619 1159 Chemistry Sodium (134 - 147 mEq/L) 139 [...] 8.3 Ionized Calcium Breana (1.09 - 1.30 1.16 MMOL/L) Magnesium (1.80 - 2.40 mg/dL) 1.39 L Total Bilirubin (0.0 - 1.0 mg/dL) 0.20 AST (15 - 37 IUnit/L) 17 ALT (30 - 65 IUnit/L) 19 L Total Alk Phosphatase (20 - 125 80 IUnit/L) Total Protein (6.4 - 8.2 g/dL) 5.6 [...] (Auto) (14.0 - 32.0 %) 9.7 L Grainger % (Auto) (4.8 - 9.0 %) 8.6 Eos % (Auto) (0.3 - 3.7 %) 1.4 Baso % (Auto) (0.0 - 2.0 %) 0.9 Neut # (Auto) (2.0 - 7.6 x10 3/uL) 2.74 Lymph # (Auto) (1.0 - 3.8 x10 3/uL) 0.34 L Grainger # (Auto) (0.1 - 0.8 x10 3/uL) [...] 1640 Occult Blood - COMP STOOL Radiology data: Recent Impressions: RADIOLOGY - XR CHEST 1 V 04/13 1720 Report Impression - Status: SIGNED Entered: 04/14/2023 0616 IMPRESSION: No acute cardiopulmonary abnormality. Impression By: Erasmo - Margarito Borges M.D. Diagnosis, Assessment Plan Free Text A P: Assessment/plan: 1. Acute renal failure most likely secondary to volume depletion, overdiuresis and ATN/AIN with Bactrim and lisinopril on board. Cr further better 2.9-2.4-1.9 > 1.2 >1.3 today, renal sono reviewed, urine proten/cr ratio 0.4 Lasix 20 mg IV x1 today 2. Coronary artery disease: Status post CABG, continue home medications 3. COPD: Symptomatic treatment 4. History of prostate cancer, s/p radiation 2021 5. Anemia: Requested stool occult blood-not sent yet, and iron studies reviewed- ok, transfuse as needed for hemoglobin less than 7. pending rehab. stable from nephrology for discharge. at 1334 RPT #:[id number] END OF REPORT [facility] 2023-04-14 10:38:00 [facility] Cardiothoracic Surgery Prog REPORT#:[id number] REPORT STATUS: Signed DATE:04/14/23 TIME: 1038 PATIENT: TEVIN NYE UNIT #: [id number] ROOM/BED: [place] [id number] : 51 AGE: 73 SEX: M ATTEND: Rojelio Magaña MD ADM AUTHOR: Evon Andrew Physic * ALL edits or amendments must be made on the electronic/computer document * General Status post: 03/04/2023 CABG x 4 (MCCORMICK-LAD,SVG-Leana, SVG-OM, SVG-PDA Subjective Chief complaint: Resting comfortable. Denies complaint Feeling better Review of Systems Constitutional: Denies: fever, generalized weakness. Respiratory: Denies: SOB. Cardiovascular: Reports: JOHNSTON (dyspnea on exertion). Denies: chest pain, edema. GI: Denies: constipation, diarrhea. Musculoskeletal: Denies: joint pain, joint swelling. Heme: Denies: bleeding, bruising. Endocrine: Denies: polydipsia, polyuria. Neuro: Denies: dizziness. Psych: Denies: agitation, anxiety. All systems rev neg: except as marked Objective General VS/I O Last Documented: Result Date Time Pulse Ox 99 04/14 720 B/P 142/58 04/14 720 B/P Mean 86.1 04/14 720 Temp 98.1 04/14 720 Pulse 42 04/14 720 Resp 17 04/14 720 O2 Delivery Nasal cannula 04/14 518 O2 Flow Rate 3 04/13 09 FiO2 28 04/10 800 24 hour I O ending at 0700: 04/14 1900 Intake Total 75.00 Output Total 325 Balance -250.00 Intake, IV 75.00 Output, Urine 325 PATIENT WEIGHT: Weight (lb): Weight (oz): Weight (kg): 86.200 Physical Exam General appearance: alert, awake, oriented HEENT: mucosal membranes moist Cardiovascular: regular rate rhythm Respiratory: aerating well, clear to auscultation Abdomen: soft, non-tender Extremities: dry, moves all Musculoskeletal: full range of motion Neuro/STONE BREAKER: alert, oriented X 3 Skin: dry, intact Ulcer: Type/cause: scab left foot. Diagnosis, Assessment Plan Hospital course to date: This is a 73-year-old gentleman with past medical history of coronary artery disease status post coronary artery bypass graft surgery on 03/04/2023 CABG x 4 (MCCORMICK-LAD,SVG-Leana, SVG-OM, SVG-PDA) Patient was DC'd home on 03/13/2023. He was DC'd home on home oxygen for findings consistent with COPD. The patient reports over the past few weeks he has experienced increased shortness of breath with exertion. The patient denies any lower extremity edema and in fact reports his lower extremity edema has slightly improved since his hospital stay. The patient presented to hospital on [facility] for evaluation of shortness of breath. During his hospitalization for coronary bypass graft surgery the patient's creatinine wero to 3 and came down to baseline of 1.6. His admission creatinine today 2.9 The patient denies any chest pains, denies any palpitations. Assessment/plan 1. Coronary artery disease Status post coronary bypass graft surgery 03/04/2023 2. CKD Consult renal 3. COPD 4. Shortness of breath Sternal wound is clean and dry. There is no signs of infection. Sternum is stable. Left leg wound graft site also clean and dry no signs of infection We will obtain echocardiogram, cardiac consultation and renal consultation. Continue daily labs Daily chest x-ray We will continue to follow 04/09/23 Patient resting comfortable ON 2 L NC Labs reviewed Elevated Creatine. Nephrology consulted. Awaiting echo- Cardiology consulted. COPD, will consult pulmonary Patient was seen and examined by Dr. Beyer. Continue supportive care 04/10/23 Patient resting comfortable Denies complaints, feeling better Creatinine improving, renal following. Given IV fluids Restart back on Eliquis as per pulmonary recommendation due to history of PE, DC Plavix Echocardiogram completed showing EF 55-59%, Trivial pericardial effusion COPD, pulmonary following Continue supportive care. 04/11/23 Patient resting comfortable, denies chest pains, denies shortness of breath Creatinine improving, renal following Shortness of breath improved Restarted on patient's Eliquis. History of PEs followed by pulmonary Patient doing well. Discharge planning in progress as per multidisciplinary teams. No CV surgical indication Patient was seen and examined by Dr. Beyer 04/12/23 Patient resting comfortable. Denies complaints Feeling better on 2 L NC. Shortness of breath improved. Renal function improved. Disposisiton will be rehab. 04/13/23 Patient resting comfortable, denies complaints On 2 L nasal cannula, followed by pulmonary Renal function improved creatinine 1.3 Rehab following. Patient will benefit from inpatient rehab stay Labs reviewed, electrolytes replaced by cardiology Foot ulcer improving, followed by podiatry Overall making good progress. Disposition will be rehab at 1040 at 1227 RPT #:[id number] END OF REPORT [facility] 2023-04-14 10:34:00 [facility] ([facility]) Hospitalist Progress Note REPORT#:[id number] REPORT STATUS: Signed DATE:04/14/23 TIME: 1034 PATIENT: TEVIN NYE UNIT #: [id number] ROOM/BED: [place] [address] : 51 AGE: 73 SEX: M ATTEND: Pablo Kumar MD ADM AUTHOR: Pablo Kumar MD * ALL edits or amendments must be made on the electronic/computer document * Subjective Chief complaint: no c/o. no cp no sob. awaiitng transfer to rehab. Objective General VS/I O: Vital Signs: Date Time Temp Pulse Resp B/P B/P Pulse O2 O2 Flow FiO2 Mean Ox Delivery Rate 04/14 720 98.1 42 17 142/58 86.1 99 04/14 [...] (lb): Weight (oz): Weight (kg): 86.200 Physical Exam General appearance: alert, awake Head/Eyes: atraumatic, clear cornea, EOMI Neck: supple/no meningismus Cardiovascular: normal heart sounds, regular rate rhythm, no gallop, no murmur , no rub Respiratory: aerating well, clear to auscultation, symmetric expansion Abdomen: non-tender, normal bowel sounds, soft, no distention Extremities: no clubbing, no cyanosis, no edema Musculoskeletal: normal inspection, painless range of motion Neuro/STONE BREAKER: alert, oriented X 3, CNII-XII intact Skin: dry, intact Ulcer: Type/cause: scab left foot. Results Radiology data: Laboratory Tests 04/14/23 0454: [Embedded Image Not Available] 04/13/23 0620: [Embedded Image Not Available] Current Medications Sig/Yas Start [...] IRR 05/09 1229 Sodium Chloride 1,000 ML .[id number] 04/09 1145 DC 04/13 IV 05/09 1144 [...] Hydrocodone Bitart/ 1 TAB Q4H PRN PRN / 1800 DC Acetaminophen PO 04/13 1759 Morphine Sulfate 4 MG Q4H PRN PRN 04/08 1800 DC IV 04/13 1759 Ondansetron HCl 4 MG Q4H PRN PRN 04/08 1800 AC IV 05/08 7234 Dose Instructions: (1)Sterile Water: DRESSING CHANGE Laboratory Tests: 04/14 04/14 04/13 04/13 0719 4870 4100 1619 Chemistry Sodium (134 - 147 mEq/L) 139 [...] (Auto) (14.0 - 32.0 %) 9.7 L Grainger % (Auto) (4.8 - 9.0 %) 8.6 Eos % (Auto) (0.3 - 3.7 %) 1.4 Baso % (Auto) (0.0 - 2.0 %) 0.9 Neut # (Auto) (2.0 - 7.6 x10 3/uL) 2.74 Lymph # (Auto) (1.0 - 3.8 x10 3/uL) 0.34 L Grainger # (Auto) (0.1 - 0.8 x10 3/uL) [...] Glucose (70 - 110 MG/DL) 211 H Microbiology: 04/13 1640 STOOL: Occult Blood - COMP Recent Impressions: RADIOLOGY - XR CHEST 1 V 04/13 1720 Report Impression - Status: SIGNED Entered: 04/14/2023 0616 IMPRESSION: No acute cardiopulmonary abnormality. Impression By: [email or web address] - Margarito Borges M.D. Diagnosis, Assessment Plan Free Text DxA P Notes Free text DxA P notes: SOB cardiology and pulmonary seen on 2.5 to 3 liters of oxygen per n/c echo wnl will give lasix twenty mg one time dose check chest xray 04/14- CXR on 04/13 was negative. pulmonary following. elevated D-dimer V-Q scan with intermediate probability on therapeutic lovenox renally dosed for now 04/14- pulmonary following...worsening anemia, but guiaiac negaive anemia 05/16- hgb dropped to 8 today (9.7 two days ago). ask heme to see. h/o cancer. guiaiac negative. JERAMY with CKD renal seen on IVF creat improving COPD on home oxygen h/o CAD s/p CABG X4 on 03/04/2023 CTS consulted and seen DM accuchecks and SSI prn check A1C BG controlled HTN bp controlled resumed home meds HLD on statin stable Prostate cancer s/p XRT Debility per PT/OT could be a post acute rehab candidate consulted rehab recommend IRF check labs in am f/up wiht DR. Rinaldi 04/14- awiaitng tranfer to rehab. folow h/h. ask heme to see. at 1040 RPT #:[id number] END OF REPORT [facility] 2023-04-14 10:25:00 [facility] ([facility]) Rehab Progress Note REPORT#:[id number] REPORT STATUS: Signed DATE:04/14/23 TIME: 1025 PATIENT: TEVIN NYE UNIT #: [id number] ROOM/BED: [place] [id number] : 51 AGE: 73 SEX: M ATTEND: Pablo Kumar MD ADM AUTHOR: Kelsi Cornelius * ALL edits or amendments must be made on the electronic/computer document * Subjective Chief complaint: The patient was seen today for rehab follow up. He was sitting EOB for AM meal. Pending transfer to IRF. Objective General VS: Vital Signs: Date Time Temp Pulse Resp B/P B/P Pulse O2 O2 Flow FiO2 Mean Ox Delivery Rate 04/14 720 98.1 42 17 142/58 86.1 99 04/14 [...] (lb): Weight (oz): Weight (kg): 86.200 Functional Progress Functional progress: ACTIVITIES PERFORMED: Grooming and Hygiene: Yes Toileting: Yes [facility] Activity: No Precautions: Fall Requires verbal cues [...] EVAL NOTES. Document OT charges: SELF/HOME MGT/ADL [id number] Document Pain/Education: No Review OT Plan of Care: No If this is the patient's last treatment, this entry serves as the discharge summary: Y Start Time: 830 Stop Time: 845 Treatment time ( minutes): 0:15 Completed by: Alia Mak - GROOMING/HYGIENE: Washing hands/face: Supervision or Set-up Combing/brushing hair: Supervision or Set-up ----- Toileting: Supervision or Set-up Safety awareness demonstrated during completion of task: Yes Requires set up of supplies: Yes Comments: URINAL FOR TOILETING. Physical Exam General appearance: alert, no acute distress, conversational, mental status normal Psych: alert, normal affect Neck: non-tender, supple Cardiovascular: regular rate rhythm, S1/S2 Respiratory: diminished breath sounds, aerating well Abdomen: bowel sounds present, soft, non-tender Ulcer: Type/cause: scab left foot. Musculoskeletal - general: Musculoskeletal - general: normal muscle mass Neuro/STONE BREAKER: alert, oriented X 3, CNII-XII intact, normal speech, no sensory deficits Results Findings/Data: Laboratory Tests: 04/14 04/14 04/13 04/13 04/13 0719 0454 2140 1619 1159 Chemistry Sodium (134 - 147 mEq/L) 139 [...] (Auto) (14.0 - 32.0 %) 9.7 L Grainger % (Auto) (4.8 - 9.0 %) 8.6 Eos % (Auto) (0.3 - 3.7 %) 1.4 Baso % (Auto) (0.0 - 2.0 %) 0.9 Neut # (Auto) (2.0 - 7.6 x10 3/uL) 2.74 Lymph # (Auto) (1.0 - 3.8 x10 3/uL) 0.34 L Grainger # (Auto) (0.1 - 0.8 x10 3/uL) 0.30 Eos # (Auto) (0.0 - 0.2 x10 3/uL) 0.05 Baso # (Auto) (0.0 - 0.2 x10 3/uL) 0.03 Abs Immat Gran (auto) (0.00 - 0.03 0.03 x10 3/uL) Add Manual Diff NO Immature Gran % (0.0 - 2.0 %) 0.9 Nucleated RBC % (0 - 0 %) 0.0 Nucleated RBCs # (Man) (0.0 - 0.1 0.00 x10 3/uL) Microbiology: 04/13 1640 STOOL: Occult Blood - COMP Radiology data: Recent Impressions: RADIOLOGY - XR CHEST 1 V 04/13 1720 Report Impression - Status: SIGNED Entered: 04/14/2023 0616 IMPRESSION: No acute cardiopulmonary abnormality. Impression By: Erasmo - Margarito Borges M.D. Diagnosis, Assessment Plan Free Text A P: 73 year old male with acute on chronic respiratory failure, elevated D-dimer, JERAMY on CKD, recent CABG and weakness. Continue with PT/OT. Recommend IRF placement for his ongoing medical and rehabilitation needs. He is willing to stay here at [facility]. 04/14: Continue with therapy as tolerated. Pending IRF transfer. Encouraged increased time EOB/OOB to build endurance, balance and strength. Rehab attestation: Face to face exam completed. Treatment plan discussed with patient. at 1641 RPT #:[id number] END OF REPORT [facility] 2023-04-14 07:35:00 [facility] ([facility] Cardiology Progress Note REPORT#:[id number] REPORT STATUS: Signed DATE:04/14/23 TIME: 734 PATIENT: TEVIN NYE UNIT #: [id number] ROOM/BED: [place] [id number] : 51 AGE: 73 SEX: M ATTEND: Rojelio Magaña MD ADM AUTHOR: Daniela Mari AGACNP * ALL edits or amendments must be made on the electronic/computer document * Subjective Patient reports: No: complaints. Objective General VS/I O: 24 hour I O ending at 0700: [...] 2145 36.8 42 18 156/62 93.7 99 04/13 1927 93 Room air 04/13 1621 36.7 39 17 145/64 91.0 98 04/13 1204 36.7 83 17 157/65 95.5 99 04/13 0902 99 Nasal 3 cannula 04/13 0900 Nasal 2 cannula 04/13 0808 36.7 69 17 157/69 98.2 99 Nasal 3.50 cannula PATIENT WEIGHT: Weight (lb): Weight (oz): Weight (kg): 86.200 Medications: Active Meds + DC'd Last 24 Hrs Furosemide (LASIX 20MG INJ) 20 MG ONCE ONE IV (DC) Furosemide (LASIX 20MG INJ) 20 MG ONCE ONE IV (DC) Enoxaparin Sodium (lovENOX) 85 MG Q12H SUBQ Metoprolol Tartrate (LOPRESSOR) 25 MG Q8HR PO Atorvastatin Calcium (LIPITOR) 40 MG 2100 PO Lactulose (LACTULOSE) 20 GM BID PRN PRN PO Miscellaneous Information (LOVENOX PHARMACY TO DOSE) 1 EACH ASDIR SUBQ ( CKD) Sterile Water (WATER FOR IRRIGATION) DRESSING CHANGE ASDIR PRN IRR Sodium Chloride (SODIUM CHLORIDE 0.9%) 1,000 ML .[id number] IV (DC) Aspirin (ASPIRIN) 81 MG DAILY [...] 4 MG Q4H PRN PRN IV Physical Exam General appearance: alert, awake Neck: non-tender, no JVD Cardiovascular: CV assessment: ectopy, irregular rhythm Respiratory: decreased breath sounds, no distress Abdomen: soft, non-tender, normal bowel sounds, no distention Genitourinary: no flank pain, no urinary catheter Lower extremity: LE assessment: abnormal pedal pulse Musculoskeletal: normal inspection Neuro/STONE BREAKER: alert, oriented X 3, normal speech Skin: dry, intact Ulcer: Type/cause: scab left foot. Psychiatry: normal affect, normal judgment/insight, normal mood Results Findings/Data: Laboratory Tests 04/14 04/14 04/13 04/13 04/13 0719 0454 2140 1619 1159 Chemistry Sodium (134 - 147 mEq/L) 139 [...] (3.4 - 5.0 g/dL) 2.50 L 04/13 0803 Chemistry POC Glucose (70 - 110 MG/DL) 170 H Microbiology Date/Time Procedure - Status Source Growth 04/13 1640 Occult Blood - COMP STOOL Laboratory Tests 04/14 0454 Chemistry Magnesium (1.80 - 2.40 mg/dL) 1.39 L Radiology data: Recent Impressions: RADIOLOGY - XR CHEST 1 V 04/13 1720 Report Impression - Status: SIGNED Entered: 04/14/2023 0616 IMPRESSION: No acute cardiopulmonary abnormality. Impression By: BuckAMDiomedes - Margarito Borges M.D. Telemetry Interpretation: Sinus rhythm with frequent PVCs Diagnosis, Assessment Plan Plan discussed with: patient, collaborating MD Free Text DxA P Notes Free Text DxA P Notes: 73 YO male with MHx of CAD s/p CABG less than 1 month ago, COPD, PE. He presents with generalized weakness and near syncope. Per family [...] d/t PE * Hx of PE, elevated D-dimer * Unable to CTA due to elevated creatinine * echocardiogram preserved LVEF * VQ suggestive of pulmonary embolism * On Lovenox full dose, transition to AC anytime 2. CAD s/p CABG * stop Plavix, continue baby ASA plus AC of choice by pulmonology * continue BB and statin 3. JERAMY on CKD 2/2 volume depletion * creatinine trending down 3->2.9->2.4->1.9->1.3 * resume lisinopril when ok with nephrology * nephrology following 4. Left foot ulcer/abnormal arterial doppler * looks like the left foot wound is healing. In the event the left foot wound failed to heal then we will consider peripheral angiogram outpatient * podiatry following - wound benign per podiatry 5. Hx of COPD * pulmonary following 6. Acute Pulmonary embolism - recurrent * AC per pulmonology * LE venous doppler no DVT 7. PVCs * Multiple PVCs * Add amiodarone 200 mg daily and continue metoprolol * Replace low magnesium Overall doing well. Rehab consulted Okay to transfer to rehab once bed available. MDM by Dr. Haynes. at 1432 at 1243 RPT #:[id number] END OF REPORT [facility] 2023-04-13 23:58:00 [facility] Hospitalist Progress Note REPORT#:[id number] REPORT STATUS: Signed DATE:04/13/23 TIME: 8 PATIENT: TEVIN NYE UNIT #: [id number] ROOM/BED: [id number] : 51 AGE: 73 SEX: M ATTEND: Elvie Gamboa MD ADM AUTHOR: Elvie Gamboa MD * ALL edits or amendments must be made on the electronic/computer document * Subjective Chief complaint: more sob today HPI: Patient is a 73-year-old male with past medical history of CAD s/p CABG by Dr. Beyer 03/03/2028, pulmonary embolism in November 2022, prostate cancer s/p radiation 2021, former smoker with COPD on home oxygen. Patient presenting for shortness of breath. no fevers, chills or sweats. no other comPatient is a 73- year-old male with past medical history of CAD s/p CABG by Dr. Beyer 03/03/2028 , pulmonary embolism in November 2022, prostate cancer s/p radiation 2021, former smoker with COPD on home oxygen. Patient presenting for shortness of breath. Labs and imaging obtained have been personally reviewed. Objective General VS/I O: Vital Signs: Date Time Temp Pulse Resp B/P B/P Pulse O2 O2 Flow FiO2 Mean Ox Delivery Rate 04/137 98.1 41 16 147/56 86.4 98 Nasal [...] Weight (lb): Weight (oz): Weight (kg): 86.200 Medications: Active Meds + DC'd Last 24 Hrs Furosemide (LASIX 20MG INJ) 20 MG ONCE ONE IV (DC) Furosemide (LASIX 20MG INJ) 20 MG ONCE ONE IV (DC) Enoxaparin Sodium (lovENOX) 85 MG Q12H SUBQ Metoprolol Tartrate (LOPRESSOR) 25 MG Q8HR PO Atorvastatin Calcium (LIPITOR) 40 MG 2100 PO Lactulose (LACTULOSE) 20 GM BID PRN PRN PO Miscellaneous Information (LOVENOX PHARMACY TO DOSE) 1 EACH ASDIR SUBQ ( CKD) Sterile Water (WATER FOR IRRIGATION) DRESSING CHANGE ASDIR PRN IRR Sodium Chloride (SODIUM CHLORIDE 0.9%) 1,000 ML .[id number] IV (DC) Aspirin (ASPIRIN) 81 MG DAILY [...] 4 MG Q4H PRN PRN IV Physical Exam General appearance: no acute distress Head/Eyes: atraumatic, clear cornea, EOMI Neck: supple/no meningismus Cardiovascular: normal heart sounds, regular rate rhythm, no gallop, no murmur , no rub Respiratory: aerating well, clear to auscultation, symmetric expansion Abdomen: non-tender, normal bowel sounds, soft, no distention Extremities: no clubbing, no cyanosis, no edema Musculoskeletal: normal inspection, painless range of motion Neuro/STONE BREAKER: alert, oriented X 3, CNII-XII intact Skin: dry, intact Ulcer: Type/cause: scab left foot. Results Findings/Data: Laboratory Tests 04/13 04/13 04/13 04/13 04/13 2140 [...] (Auto) (14.0 - 32.0 %) 8.9 L Grainger % (Auto) (4.8 - 9.0 %) 6.7 Eos % (Auto) (0.3 - 3.7 %) 1.7 Baso % (Auto) (0.0 - 2.0 %) 0.8 Neut # (Auto) (2.0 - 7.6 x10 3/uL) 2.90 Lymph # (Auto) (1.0 - 3.8 x10 3/uL) 0.32 L Grainger # (Auto) (0.1 - 0.8 x10 3/uL) [...] Diagnosis, Assessment Plan Free Text DxA P Notes Free text DxA P notes: SOB cardiology and pulmonary seen on 2.5 to 3 liters of oxygen per n/c echo wnl will give lasix twenty mg one time dose check chest xray elevated D-dimer V-Q scan with intermediate probability on therapeutic lovenox renally dosed for now JERAMY with CKD renal seen on IVF creat improving COPD on home oxygen h/o CAD s/p CABG X4 on 03/04/2023 CTS consulted and seen DM accuchecks and SSI prn check A1C BG controlled HTN bp controlled resumed home meds HLD on statin stable Prostate cancer s/p XRT anemia hgb stable has been having blood in stool check FOBT Debility per PT/OT could be a post acute rehab candidate consulted rehab recommend IRF check labs in am f/up wiht DR. Rinaldi at 0022 RPT #:[id number] END OF REPORT [facility] 2023-04-13 14:27:00 [facility] ([facility]) Podiatry Progress Note REPORT#:[id number] REPORT STATUS: Signed DATE:04/13/23 TIME: 1427 PATIENT: TEVIN NYE UNIT #: [id number] ROOM/BED: [place] [id number] : 51 AGE: 73 SEX: M ATTEND: Rojelio Magaña MD ADM AUTHOR: Earle Og DPM * ALL edits or amendments must be made on the electronic/computer document * Subjective Chief complaint: left foot ulcer HPI: Patient seen at bedside this afternoon. No acute overnight events. No complaints Review of Systems Constitutional: Denies: chills, fatigue, fever, generalized weakness. Respiratory: Denies: JOHNSTON (dyspnea on exertion), non productive cough, productive cough ( sputum), wheezing. Cardiovascular: Denies: chest pain, JOHNSTON (dyspnea on exertion), palpitations. GI: Denies: abdominal pain, constipation, diarrhea, nausea, vomiting. Neuro: Denies: change in LOC, confusion, dizziness, headache, lightheaded. Objective General VS: Last Documented: Result Date Time Pulse Ox 99 04/13 1204 B/P 157/65 04/13 1204 B/P Mean 95.5 04/13 1204 Temp 98.1 04/13 1204 Pulse 83 04/13 1204 Resp 17 04/13 1204 O2 Delivery Nasal cannula 04/13 0902 O2 Flow Rate 3 04/13 0902 FiO2 28 04/10 0800 PATIENT WEIGHT: Weight (lb): Weight (oz): Weight (kg): 86.200 Medications: Active Meds + DC'd Last 24 Hrs Furosemide (LASIX 20MG INJ) 20 MG ONCE [...] PHARMACY TO DOSE) 1 EACH ASDIR SUBQ ( CKD) Sterile Water (WATER FOR IRRIGATION) DRESSING CHANGE ASDIR PRN IRR Sodium Chloride (SODIUM CHLORIDE 0.9%) 1,000 ML .[id number] IV (DC) Aspirin (ASPIRIN) 81 MG DAILY [...] 4 MG Q4H PRN PRN IV I O: 24 hour I O ending at 0700: 08/06 0700 08/05 1900 Intake Total 100 500 Output Total 500 Balance 100 0 Intake, Oral 100 500 Number Voids 1 Output, Urine 500 Dietitian nutrition assessment The data set between the solid lines has been imported from the dietitian's assessment. BMI Calculated: 29.8 Nutrition related diagnosis: Nutrition diagnosis details: Nutrition problem: Nutrition etiology: Nutrition signs and symptoms: Nutrition prescription: Dietitian name: Assessment completed: Physical Exam General appearance: no acute distress, no respiratory distress Wound/incision: Location: bilat foot Site condition: small pinpoint ulcer right foot. ulcer left forefoot dorsal. partial and full thickness. no erythema. no depth. LE vascular pulse assess: Nonpalpable R posterior tibialis, Nonpalpable L posterior tibialis, Nonpalpable R dorsalis pedis, Nonpalpable L dorsalis pedis Results Findings/Data: Laboratory Tests: 04/13 04/13 04/13 04/12 1159 0803 [...] H Calcium (8.0 - 10.5 mg/dL) 8.1 Coagulation Heparin Anti-Xa, LM Wt (0.60 - 1.00 IU/mL) 0.56 L Hematology WBC (4.5 - 11.0 x10 [...] (Auto) (14.0 - 32.0 %) 8.9 L Grainger % (Auto) (4.8 - 9.0 %) 6.7 Eos % (Auto) (0.3 - 3.7 %) 1.7 Baso % (Auto) (0.0 - 2.0 %) 0.8 Neut # (Auto) (2.0 - 7.6 x10 3/uL) 2.90 Lymph # (Auto) (1.0 - 3.8 x10 3/uL) 0.32 L Grainger # (Auto) (0.1 - 0.8 x10 3/uL) [...] 3/uL) 0.00 Diagnosis, Assessment Plan Free Text A P: ulcer left foot. pain PVD Labs reviewed ulcer is benign...starting to peel continue local wound care. no xray found. venous u/s neg NIAS: pvd as expected. covering for Dr. Washington at 1118 RPT #:[id number] END OF REPORT [facility] 2023-04-13 13:56:00 [facility] ([facility]) Pulmonology Progress Note REPORT#:[id number] REPORT STATUS: Signed DATE:04/13/23 TIME: 1355 PATIENT: TEVIN NYE UNIT #: [id number] ROOM/BED: [place] [address] : 51 AGE: 73 SEX: M ATTEND: Elvie Gamboa MD ADM AUTHOR: David Goodwin PA * ALL edits or amendments must be made on the electronic/computer document * David Goodwin 04/13/23 1356: Subjective Chief complaint: sob HPI: Coverage for Dr. Alan. Seen and examined, events noted. h/h slowly downtrending reports small amount of blood in stool on O2 via NC less sob ROS neg f/c, n/v, cp Patient reports: Yes: feeling better, resting comfortably. No: chest pain, congestion, cough, pain, shortness of breath, sputum. Comments: Seen and examined, events noted. Continues on 2 to 3 L/min supplemental oxygen via nasal cannula. Complains of blood in stool, worsening over the past 24 to 48 hours. ROS: Denies CP, SOB, cough, congestion, N/V/C/D, GARCIA, chills Objective General VS/I O: Last Documented: Result Date Time Pulse Ox 99 04/13 1204 B/P 157/65 04/13 1204 B/P Mean 95.5 04/13 1204 Temp 36.7 04/13 1204 Pulse 83 04/13 1204 Resp 17 04/13 1204 O2 Delivery Nasal cannula 04/13 0902 O2 Flow Rate 3 04/13 0902 FiO2 28 04/10 0800 24 hour I O ending at 0700: 06 0700 08/ 1900 Intake Total 100 500 Output Total 500 Balance 100 0 Intake, Oral 100 500 Number Voids 1 Output, Urine 500 PATIENT WEIGHT: Weight (lb): Weight (oz): Weight (kg): 86.200 Medications: Active Meds + DC'd Last 24 Hrs Furosemide (LASIX 20MG INJ) 20 MG ONCE [...] PHARMACY TO DOSE) 1 EACH ASDIR SUBQ ( CKD) Sterile Water (WATER FOR IRRIGATION) DRESSING CHANGE ASDIR PRN IRR Sodium Chloride (SODIUM CHLORIDE 0.9%) 1,000 ML .[id number] IV (DC) Aspirin (ASPIRIN) 81 MG DAILY [...] 4 MG Q4H PRN PRN IV Physical Exam General appearance: alert, awake, oriented, no acute distress, pleasant Head/eyes: atraumatic, normocephalic, PERRL, EOMI Neck: no JVD, no lymphadenopathy Cardiovascular: normal heart sounds, normal S1/S2, regular rate rhythm Respiratory/chest: decreased breath sounds, on oxygen, aerating well, symmetric expansion Abdomen: soft, no guarding Extremities: moves all, no clubbing, no cyanosis, no edema Neuro/STONE BREAKER: CNII-XII intact Skin: dry, intact Ulcer: Type/cause: scab left foot. Psychiatry: normal affect, normal judgment/insight, normal mood Results Findings/Data: Laboratory Tests 04/13/23 0620: [Embedded Image Not Available] Laboratory Tests 04/13 04/13 04/13 04/12 1159 0803 [...] - 10.5 mg/dL) 8.1 Laboratory Tests 04/13 0620 Coagulation Heparin Anti-Xa, LM Wt (0.60 - 1.00 IU/mL) 0.56 L Laboratory Tests 04/13 0620 Hematology WBC (4.5 - 11.0 x10 3/uL) [...] (Auto) (14.0 - 32.0 %) 8.9 L Grainger % (Auto) (4.8 - 9.0 %) 6.7 Eos % (Auto) (0.3 - 3.7 %) 1.7 Baso % (Auto) (0.0 - 2.0 %) 0.8 Neut # (Auto) (2.0 - 7.6 x10 3/uL) 2.90 Lymph # (Auto) (1.0 - 3.8 x10 3/uL) 0.32 L Grainger # (Auto) (0.1 - 0.8 x10 3/uL) [...] 3/uL) 0.00 Diagnosis, Assessment Plan Free Text A P: Acute on chronic hypoxemic respiratory failure supplemental O2 as needed and wean as tolerated Pulmonary embolism Initially diagnosed in November 2022 at outside hospital; was on Eliquis from diagnosis through February. CTA chest 03/03/2023 was negative for pulmonary embolism. Patient was discharged home 03/13/2023 and told to discontinue taking Eliquis. -D-dimer 1496. -VQ scan with intermediate probability. 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 Check bilateral lower extremity Dopplers -> neg -Renally dose lovenox @ 1mg/kg once daily -d/w cardio. will ultimately AC with eliquis asa and DC plavix. Continue lovenox for now. COPD No exacerbation. On Combivent and ipratropium nebs at home. -May need repeat pulmonary function test outpatient. 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 1.5 x 0.8 cm nodular opacity in RLL needs follow-up in 3 months CAD / PAD S/p CABG 03/04/2023 Cardiothoracic surgery following Pending echo - will need periph angio when cr improved JERAMY/CKD Nephrology consult Strict I O. Measure UOP. 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 I agree with the findings and plan as documented by Ezra Goodwin PA-C. at 1401 at 1744 RPT #:[id number] END OF REPORT [facility] 2023-04-13 11:45:00 [facility] ([facility]) Nephrology Progress Note REPORT#:[id number] REPORT STATUS: Signed DATE:04/13/23 TIME: 1145 PATIENT: TEVIN NYE UNIT #: [id number] ROOM/BED: [place] [address] : 51 AGE: 73 SEX: M ATTEND: Elvie Gamboa MD ADM AUTHOR: Sg More MD * ALL edits or amendments must be made on the electronic/computer document * Subjective Chief complaint: Follow-up of acute renal failure, ATN/AIN Objective General VS/I O: Vital Signs: Date Time Temp Pulse Resp B/P B/P Pulse O2 O2 Flow FiO2 Mean Ox Delivery Rate 04/13 0902 99 Nasal 3 cannula 04/13 0808 98.1 [...] Weight (lb): Weight (oz): Weight (kg): 86.200 Medications Active Meds + DC'd Last 24 Hrs Furosemide (LASIX 20MG INJ) 20 MG ONCE ONE IV (UNV) Enoxaparin Sodium (lovENOX) 95 MG Q24H SUBQ (CAN) Enoxaparin Sodium (lovENOX) 85 MG Q12H SUBQ Metoprolol Tartrate (LOPRESSOR) 25 MG Q8HR PO Atorvastatin Calcium (LIPITOR) 40 MG 2100 PO Lactulose (LACTULOSE) 20 GM BID PRN PRN PO Miscellaneous Information (LOVENOX PHARMACY TO DOSE) 1 EACH ASDIR SUBQ ( CKD) Sterile Water (WATER FOR IRRIGATION) DRESSING CHANGE ASDIR PRN IRR Sodium Chloride (SODIUM CHLORIDE 0.9%) 1,000 ML .[id number] IV (DCr) Aspirin (ASPIRIN) 81 MG DAILY [...] 4 MG Q4H PRN PRN IV Physical Exam General appearance: alert, awake Head/eyes: atraumatic, normocephalic ENT: moist mucous membranes Neck: supple/no meningismus, no JVD Cardiovascular: normal heart sounds, no rub Respiratory: aerating well, clear to auscultation Genitourinary: no bladder distention Extremities: no edema Neuro/STONE BREAKER: alert, oriented X 3 Ulcer: Type/cause: scab left foot. Results Findings/Data: Laboratory Tests 04/13 04/13 04/12 0803 0620 1635 [...] (Auto) (14.0 - 32.0 %) 8.9 L Grainger % (Auto) (4.8 - 9.0 %) 6.7 Eos % (Auto) (0.3 - 3.7 %) 1.7 Baso % (Auto) (0.0 - 2.0 %) 0.8 Neut # (Auto) (2.0 - 7.6 x10 3/uL) 2.90 Lymph # (Auto) (1.0 - 3.8 x10 3/uL) 0.32 L Grainger # (Auto) (0.1 - 0.8 x10 3/uL) [...] 3/uL) 0.00 Diagnosis, Assessment Plan Free Text A P: Assessment/plan: 1. Acute renal failure most likely secondary to volume depletion, overdiuresis and ATN/AIN with Bactrim and lisinopril on board. Cr further better 2.9-2.4-1.9 > 1.2 today, renal sono reviewed, urine proten/cr ratio 0.4 more SOB with exersion > DC IVF and gave laix 20 mg X 1 on 04/13. 2. Coronary artery disease: Status post CABG, continue home medications 3. COPD: Symptomatic treatment 4. History of prostate cancer, s/p radiation 2021 5. Anemia: Requested stool occult blood-not sent yet, and iron studies reviewed- ok, transfuse as needed for hemoglobin less than 7. pending rehab. stable from nephrology for discharge. at 1149 RPT #:[id number] END OF REPORT [facility] 2023-04-13 07:29:00 [facility] ([facility] Cardiothoracic Surgery Prog REPORT#:[id number] REPORT STATUS: Signed DATE:04/13/23 TIME: 728 PATIENT: TEVIN NYE UNIT #: [id number] ROOM/BED: [place] [address] : 51 AGE: 73 SEX: M ATTEND: Elvie Gamboa MD ADM AUTHOR: Evon Andrew Physic * ALL edits or amendments must be made on the electronic/computer document * General Status post: 03/04/2023 CABG x 4 (MCCORMICK-LAD,SVG-Leana, SVG-OM, SVG-PDA Subjective Chief complaint: Resting comfortable. Review of Systems Constitutional: Denies: fever, generalized weakness. Respiratory: Reports: SOB. Cardiovascular: Reports: [place] (dyspnea on exertion). Denies: chest pain, edema. GI: Denies: constipation, diarrhea. Musculoskeletal: Denies: joint pain, joint swelling. Heme: Denies: bleeding, bruising. Endocrine: Denies: polydipsia, polyuria. Neuro: Denies: dizziness. Psych: Denies: agitation, anxiety. All systems rev neg: except as marked Objective Physical Exam General appearance: alert, awake, oriented HEENT: mucosal membranes moist Cardiovascular: regular rate rhythm Respiratory: aerating well, clear to auscultation Abdomen: soft, non-tender Extremities: dry, moves all Musculoskeletal: full range of motion Neuro/STONE BREAKER: alert, oriented X 3 Skin: dry, intact Ulcer: Type/cause: scab left foot. Diagnosis, Assessment Plan Hospital course to date: This is a 73-year-old gentleman with past medical history of coronary artery disease status post coronary artery bypass graft surgery on 03/04/2023 CABG x 4 (MCCORMICK-LAD,SVG-Leana, SVG-OM, SVG-PDA) Patient was DC'd home on 03/13/2023. He was DC'd home on home oxygen for findings consistent with COPD. The patient reports over the past few weeks he has experienced increased shortness of breath with exertion. The patient denies any lower extremity edema and in fact reports his lower extremity edema has slightly improved since his hospital stay. The patient presented to hospital on [facility] for evaluation of shortness of breath. During his hospitalization for coronary bypass graft surgery the patient's creatinine wero to 3 and came down to baseline of 1.6. His admission creatinine today 2.9 The patient denies any chest pains, denies any palpitations. Assessment/plan 1. Coronary artery disease Status post coronary bypass graft surgery 03/04/2023 2. CKD Consult renal 3. COPD 4. Shortness of breath Sternal wound is clean and dry. There is no signs of infection. Sternum is stable. Left leg wound graft site also clean and dry no signs of infection We will obtain echocardiogram, cardiac consultation and renal consultation. Continue daily labs Daily chest x-ray We will continue to follow 04/09/23 Patient resting comfortable ON 2 L NC Labs reviewed Elevated Creatine. Nephrology consulted. Awaiting echo- Cardiology consulted. COPD, will consult pulmonary Patient was seen and examined by Dr. Beyer. Continue supportive care 04/10/23 Patient resting comfortable Denies complaints, feeling better Creatinine improving, renal following. Given IV fluids Restart back on Eliquis as per pulmonary recommendation due to history of PE, DC Plavix Echocardiogram completed showing EF 55-59%, Trivial pericardial effusion COPD, pulmonary following Continue supportive care. 04/11/23 Patient resting comfortable, denies chest pains, denies shortness of breath Creatinine improving, renal following Shortness of breath improved Restarted on patient's Eliquis. History of PEs followed by pulmonary Patient doing well. Discharge planning in progress as per multidisciplinary teams. No CV surgical indication Patient was seen and examined by Dr. Beyer 04/12/23 Patienr resting comfortable. Denies complaints Feeling better on 2 L NC. Shortness of breath improved. Renal function improved. Disposisiton will be rehab. at 4032 at 0789 RPT #:[id number] END OF REPORT [facility] 2023-04-12 15:35:00 [facility] ([facility]) Hospitalist Progress Note REPORT#:[id number] REPORT STATUS: Signed DATE:04/12/23 TIME: 1535 PATIENT: TEVIN NYE UNIT #: [id number] ROOM/BED: [place] [address] : 51 AGE: 73 SEX: M ATTEND: Elvie Gamboa MD ADM AUTHOR: Elvie Gamboa MD * ALL edits or amendments must be made on the electronic/computer document * Subjective Chief complaint: feeling better. back to home oxygen HPI: Patient is a 73-year-old male with past medical history of CAD s/p CABG by Dr. Beyer 03/03/2028, pulmonary embolism in November 2022, prostate cancer s/p radiation 2021, former smoker with COPD on home oxygen. Patient presenting for shortness of breath. no fevers, chills or sweats. no other comPatient is a 73- year-old male with past medical history of CAD s/p CABG by Dr. Beyer 03/03/2028 , pulmonary embolism in November 2022, prostate cancer s/p radiation 2021, former smoker with COPD on home oxygen. Patient presenting for shortness of breath. Labs and imaging obtained have been personally reviewed. Objective General VS/I O: Vital Signs: Date Time Temp Pulse Resp [...] Weight (lb): Weight (oz): Weight (kg): 86.200 Medications: Active Meds + DC'd Last 24 Hrs Enoxaparin Sodium (lovENOX) 95 MG Q24H SUBQ Metoprolol Tartrate (LOPRESSOR) 25 MG Q8HR PO Atorvastatin Calcium (LIPITOR) 40 MG 2100 PO Lactulose (LACTULOSE) 20 GM BID PRN PRN PO Enoxaparin Sodium (lovENOX) 86 MG Q24H SUBQ (DC) Miscellaneous Information (LOVENOX PHARMACY TO DOSE) 1 EACH ASDIR SUBQ ( CKD) Sterile Water (WATER FOR IRRIGATION) DRESSING CHANGE ASDIR PRN IRR Sodium Chloride (SODIUM CHLORIDE 0.9%) 1,000 ML .[id number] IV Aspirin (ASPIRIN) 81 MG DAILY PO [...] 4 MG Q4H PRN PRN IV Physical Exam General appearance: no acute distress Head/Eyes: atraumatic, clear cornea, EOMI Neck: supple/no meningismus Cardiovascular: normal heart sounds, regular rate rhythm, no gallop, no murmur , no rub Respiratory: aerating well, clear to auscultation, symmetric expansion Abdomen: non-tender, normal bowel sounds, soft, no distention Extremities: no clubbing, no cyanosis, no edema Musculoskeletal: normal inspection, painless range of motion Neuro/STONE BREAKER: alert, oriented X 3, CNII-XII intact Skin: dry, intact Ulcer: Type/cause: scab left foot. Results Findings/Data: Laboratory Tests 04/12 04/12 04/12 04/11 04/11 1050 [...] (Auto) (14.0 - 32.0 %) 8.1 L Grainger % (Auto) (4.8 - 9.0 %) 6.2 Eos % (Auto) (0.3 - 3.7 %) 2.4 Baso % (Auto) (0.0 - 2.0 %) 1.0 Neut # (Auto) (2.0 - 7.6 x10 3/uL) 3.40 Lymph # (Auto) (1.0 - 3.8 x10 3/uL) 0.34 L Grainger # (Auto) (0.1 - 0.8 x10 3/uL) [...] Diagnosis, Assessment Plan Free Text DxA P Notes Free text DxA P notes: SOB cardiology and pulmonary seen on 2 liters of oxygen per n/c echo wnl elevated D-dimer V-Q scan with intermediate probability on therapeutic lovenox renally dosed for now JERAMY with CKD renal seen on IVF creat improving COPD on home oxygen h/o CAD s/p CABG X4 on 03/04/2023 CTS consulted and seen DM accuchecks and SSI prn check A1C BG controlled HTN bp controlled resumed home meds HLD on statin stable Prostate cancer s/p XRT anemia hgb stable Debility per PT/OT could be a post acute rehab candidate consulted rehab recommend IRF follow labs f/up wiht DR. Rinaldi at 1538 RPT #:[id number] END OF REPORT [facility] 2023-04-12 15:01:00 [facility] ([facility]) Pulmonology Progress Note REPORT#:[id number] REPORT STATUS: Signed DATE:04/12/23 TIME: 1501 PATIENT: TEVIN NYE UNIT #: [id number] ROOM/BED: [place] [id number] : 51 AGE: 73 SEX: M ATTEND: Elvie Gamboa MD ADM AUTHOR: David Goodwin PA * ALL edits or amendments must be made on the electronic/computer document * David Goodwin 04/12/23 1501: Subjective Chief complaint: sob HPI: Coverage for Dr. Alan. Seen and examined, events noted. h/h slowly downtrending reports small amount of blood in stool on O2 via NC less sob ROS neg f/c, n/v, cp Patient reports: Yes: feeling better, resting comfortably. No: chest pain, congestion, cough, pain, shortness of breath, sputum. Comments: Seen and examined, events noted. Doing wel, no new issues or c/o. ROS: Denies CP, SOB, cough, congestion, N/V/C/D, GARCIA, chills Objective General VS/I O: Last Documented: Result Date Time Pulse Ox 99 04/12 1050 B/P 142/60 04/12 1050 B/P Mean 87.7 04/12 1050 Temp 36.6 04/12 1050 Pulse 71 / 1050 Resp 16 04/12 1050 O2 Delivery Nasal cannula 04/12 0900 O2 Flow Rate 2 04/12 0900 FiO2 28 04/10 0800 24 hour I O ending at 0700: 04/12 0700 04/11 1900 Intake Total 100 Output Total 830 600 Balance -730 -600 Intake, Oral 100 Output, Urine 830 600 PATIENT WEIGHT: Weight (lb): Weight (oz): Weight (kg): 86.200 Medications: Active Meds + DC'd Last 24 Hrs Enoxaparin Sodium (lovENOX) 95 MG Q24H SUBQ Metoprolol Tartrate (LOPRESSOR) 25 MG Q8HR PO Atorvastatin Calcium (LIPITOR) 40 MG 2100 PO Lactulose (LACTULOSE) 20 GM BID PRN PRN PO Enoxaparin Sodium (lovENOX) 86 MG Q24H SUBQ (DC) Miscellaneous Information (LOVENOX PHARMACY TO DOSE) 1 EACH ASDIR SUBQ ( CKD) Sterile Water (WATER FOR IRRIGATION) DRESSING CHANGE ASDIR PRN IRR Sodium Chloride (SODIUM CHLORIDE 0.9%) 1,000 ML .[id number] IV Aspirin (ASPIRIN) 81 MG DAILY PO [...] 4 MG Q4H PRN PRN IV Physical Exam General appearance: alert, awake, oriented, no acute distress Head/eyes: atraumatic, normocephalic, PERRL, EOMI Neck: no JVD, no lymphadenopathy Cardiovascular: normal heart sounds, normal S1/S2, regular rate rhythm Respiratory/chest: decreased breath sounds, on oxygen, aerating well, symmetric expansion Abdomen: soft, no guarding Extremities: moves all, no clubbing, no cyanosis, no edema Neuro/STONE BREAKER: CNII-XII intact Skin: dry, intact Ulcer: Type/cause: scab left foot. Psychiatry: normal affect, normal judgment/insight, normal mood Results Findings/Data: Laboratory Tests 04/12/23 0450: [Embedded Image Not Available] Laboratory Tests 04/12 04/12 04/12 04/11 04/11 1050 [...] (Auto) (14.0 - 32.0 %) 8.1 L Grainger % (Auto) (4.8 - 9.0 %) 6.2 Eos % (Auto) (0.3 - 3.7 %) 2.4 Baso % (Auto) (0.0 - 2.0 %) 1.0 Neut # (Auto) (2.0 - 7.6 x10 3/uL) 3.40 Lymph # (Auto) (1.0 - 3.8 x10 3/uL) 0.34 L Grainger # (Auto) (0.1 - 0.8 x10 3/uL) [...] 3/uL) 0.00 Diagnosis, Assessment Plan Free Text A P: Acute on chronic hypoxemic respiratory failure supplemental O2 as needed and wean as tolerated Pulmonary embolism Initially diagnosed in November 2022 at outside hospital; was on Eliquis from diagnosis through February. CTA chest 03/03/2023 was negative for pulmonary embolism. Patient was discharged home 03/13/2023 and told to discontinue taking Eliquis. -D-dimer 1496. -VQ scan with intermediate probability. 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 Check bilateral lower extremity Dopplers -> neg -Renally dose lovenox @ 1mg/kg once daily -d/w cardio. will ultimately AC with eliquis asa and DC plavix. Continue lovenox for now. COPD No exacerbation. On Combivent and ipratropium nebs at home. -May need repeat pulmonary function test outpatient. 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 1.5 x 0.8 cm nodular opacity in RLL needs follow-up in 3 months CAD / PAD S/p CABG 03/04/2023 Cardiothoracic surgery following Pending echo - will need periph angio when cr improved JERAMY/CKD Nephrology consult Strict I O. Measure UOP. - IVF Follow labs History of prostate cancer S/p radiation in 2021 Christiano Gutierrez 04/12/23 2156: Attestations Physician Attestation Agree w/findings plan: Seen and examined. I agree with the findings and plan as documented by Ezra Goodwin PA-C. at 1502 at 2159 RPT #:[id number] END OF REPORT [facility] 2023-04-12 09:09:00 [facility] ([facility]) Cardiology Progress Note REPORT#:[id number] REPORT STATUS: Signed DATE:04/12/23 TIME: 908 PATIENT: TEVIN NYE UNIT #: [id number] ROOM/BED: 5517-1 : 51 AGE: 73 SEX: M ATTEND: Elvie Gamboa MD ADM AUTHOR: Daniela MariP * ALL edits or amendments must be made on the electronic/computer document * Subjective Patient reports: No: complaints. Objective General VS/I O: 24 hour I O ending at 0700: [...] Weight (lb): Weight (oz): Weight (kg): 86.200 Medications: Active Meds + DC'd Last 24 Hrs Enoxaparin Sodium (lovENOX) 95 MG Q24H SUBQ Metoprolol Tartrate (LOPRESSOR) 25 MG Q8HR PO Atorvastatin Calcium (LIPITOR) 40 MG 2100 PO Lactulose (LACTULOSE) 20 GM BID PRN PRN PO Enoxaparin Sodium (lovENOX) 86 MG Q24H SUBQ (DC) Miscellaneous Information (LOVENOX PHARMACY TO DOSE) 1 EACH ASDIR SUBQ ( CKD) Sterile Water (WATER FOR IRRIGATION) DRESSING CHANGE ASDIR PRN IRR Sodium Chloride (SODIUM CHLORIDE 0.9%) 1,000 ML .[id number] IV Aspirin (ASPIRIN) 81 MG DAILY PO [...] 4 MG Q4H PRN PRN IV Physical Exam General appearance: alert, awake, oriented Neck: non-tender, no JVD Cardiovascular: CV assessment: ectopy, irregular rhythm Respiratory: decreased breath sounds, no distress Abdomen: soft, non-tender, normal bowel sounds, no distention Genitourinary: no flank pain, no urinary catheter Lower extremity: LE assessment: abnormal pedal pulse Musculoskeletal: normal inspection Neuro/STONE BREAKER: alert, oriented X 3, normal speech Skin: dry, intact Ulcer: Type/cause: scab left foot. Psychiatry: normal affect, normal judgment/insight, normal mood Results Findings/Data: Laboratory Tests 04/1213 0450 1940 1731 1200 Chemistry Sodium (134 [...] (Auto) (14.0 - 32.0 %) 8.1 L Grainger % (Auto) (4.8 - 9.0 %) 6.2 Eos % (Auto) (0.3 - 3.7 %) 2.4 Baso % (Auto) (0.0 - 2.0 %) 1.0 Neut # (Auto) (2.0 - 7.6 x10 3/uL) 3.40 Lymph # (Auto) (1.0 - 3.8 x10 3/uL) 0.34 L Grainger # (Auto) (0.1 - 0.8 x10 3/uL) [...] reviewed, vital signs reviewed, rhythm personally rev'd Telemetry Interpretation: sinus rhythtm Diagnosis, Assessment Plan Plan discussed with: patient, family, collaborating MD, nurse Free Text DxA P Notes Free Text DxA P Notes: 73 YO male with MHx of CAD s/p CABG less than 1 month ago, COPD, PE. He presents with generalized weakness and near syncope. Per family [...] d/t PE * Hx of PE, elevated D-dimer * Unable to CTA due to elevated creatinine * echocardiogram preserved LVEF * VQ suggestive of pulmonary embolism 2. CAD s/p CABG * stop Plavix, continue baby ASA plus AC of choice by pulmonology * continue BB and statin 3. JERAMY on CKD 2/2 volume depletion * creatinine trending down 3->2.9->2.4->1.9->1.3 * resume lisinopril when ok with nephrology * nephrology following 4. Left foot ulcer/abnormal arterial doppler * outpatient peripheral angiogram * podiatry following - wound benign per podiatry 5. Hx of COPD * pulmonary following 6. Acute Pulmonary embolism - recurrent * AC per pulmonology * LE venous doppler no DVT 7. PVCs * continue metoprolol for PVC and CAD Overall doing well. Rehab consulted Okay to transfer to rehab once bed available. MDM by Dr. Haynes. at 1448 at 1822 RPT #:[id number] END OF REPORT [facility] 2023-04-12 08:15:00 [facility] ([facility]) Acute Rehab Consult REPORT#:[id number] REPORT STATUS: Signed DATE:04/12/23 TIME: 814 PATIENT: TEVIN NYE UNIT #: [id number] ROOM/BED: 5517-1 : 51 AGE: 73 SEX: M ATTEND: Elvie Gamboa MD ADM AUTHOR: Kelsi Cornelius * ALL edits or amendments must be made on the electronic/computer document * History of Present Illness HPI Reason for consult: evaluation of Rehab needs HPI: This patient is a 73 year old male admitted wiht c/o weakness and near syncope. He recently underwent CABG on 03/04/2023. CABG x 4 (MCCORMICK-LAD,SVG-Leana, SVG-OM, SVG-PDA). He was discharged home 03/13/2023. He has been having increased weakness and shortness of breath with exertion. CXR showed emphysematous changes in the right lower lung with prominent peribronchiolar markings. Nuclear pulmonary perfusion imaging with intermediate likelihood ratio for pulmonary embolism. Pulmonary medicine team was consulted. The patient was found to have a pulmonary embolism back in November 2022 and placed on Eliquis. CTA of the chest was negative. BLE dopplers negative. He was renally dosed for Lovenox. He is now on his home oxygen dose. I have been consulted for input regarding his physical medicine and rehabilitation needs. Functional Status PT evaluation: Primary Diagnosis: CP; SOB; LIGHTHEADED, NEAR [...] history of CAD s/p CABG by Dr. Beyer 03/03/2023, pulmonary embolism in November 2022, prostate cancer s/p radiation 2021, former smoker with COPD on home oxygen. Information Provided By: Chart Patient Pertinent Surgical History: SEE SURGCAL HISTORY (CABG ON 03/05/2023) Precautions: Fall (In Addition to Standard) Cognitive Status: OX4 - P/PL/T/Situation Language Spoken: Slovak Manager Front provided: No Prior Level of Function: Independent [...] comply: Y Patient/Family Goals: RETURN HOME Modified [place] Score: No Rehabilitation Potential: Good Post [place] [...] Endurance PT charges: Eval PT High Comp [id number] If this is the patient's last treatment, this entry serves as the discharge summary: Y Start Time: 1038 Stop Time: 1057 Eval Time(min): 0:19 Completed by: Marialuisa Whalen Supervising Therapist: MONICARCSebastian Yanez Reviewed and Approved By: SEBASTIAN FLORES, PT [...] 3 To walk in hospital room? 3 [facility] Mobility Score: 17 FUNCTIONAL MOBILITY Items determined [...] our facility, COPD on 2 L home oxygen Past Medical History: Reports: COPD, Diabetes mellitus, Hypertension, BPH, Dyslipidemia. Past Surgical History: Reports: Knee procedure, Lung surgery ( collapsed lung). 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 Evaluation Type: High Complexity Reason for Eval Complexity: Multiple Comorbidities Document OT charges: EVAL OT HIGH COMP [id number] Comments: PT WOULD BENEFIT FROM SKILLED OT SERVICES TO ADDRESS THE NOTED PERF DEFICITS. If this is the patient's last treatment, this entry serves as the discharge summary: Y Start Time: 814 Stop Time: 822 Eval Time ( minutes): 0:08 Completed by: Alia Mak UPPER EXTREMETY [...] Normal Gross Motor Coordination: Normal Right Hand Proprietary Trader Strength: Fair Left Hand Proprietary Trader Strength: Fair FUNCTIONAL MOBILITY FUNCTIONAL MOBILITY Items [...] personal grooming, such as brushing teeth? 3 [facility] Activity Score: 9 ACTIVITIES OF DAILY LIVING Items determined to be outside Functional Limits are as follows: Upper Body Dressing: Moderate Assistance Lower Body Dressing: Dependent Hygiene/Grooming: Supervision or Set-up Toileting: Supervision or Set-up Comments: URINAL FOR TOILETING. History Past medical history: Reports: COPD, Diabetes mellitus, Hypertension, BPH, Dyslipidemia. Additional medical history: CAD s/p CABG 2022 Pulmonary embolism 2022 COPD Prostate cancer s/p radiation 2021 Hypertension Hyperlipidemia Diabetes Knee surgery Carotid artery stenosis CKD Past surgical history: Reports: Knee procedure, Lung surgery (collapsed lung). Additional surgical history: knee surgery Additional family history: none Alcohol use: Denies EtOH use Drug use: Denies recreational drugs Smoking status for patients 13 years old or older: Former Smoker Additional social history: LIVES AT HOME ALONE. HIS YOUNGER BROTHER LIVES ACROSS THE STREET. SSH. NO STAIRS. HE WAS IND PLOF. NO DME USED . OCCASSIONAL CANE USED. NO OXYGEN Medications: Home Medications: Medication Dose/Rte/Freq Days Qty Entered Last Max Daily Dose Reviewed OXYBUTYNIN (DITROPAN) 5 MG PO BID 03/03/23 04/08/23 Strength: 5 MG TAB 1937 1837 FLUoxetine (PROzac) 10 MG PO QAM 03/03/23 04/08/23 Strength: 10 MG CAP 1938 1842 LATANOPROST 1 DROP EACH EYE 03/03/23 04/08/23 (XALATAN 0.005% OPHTH BEDTIME 1939 1843 SOLN) Strength: 0.005 % OPHTH.SOLN INSULIN LISPRO 6 03/03/23 04/08/23 (HumaLOG KWIKPEN (3mL)) 1942 1844 Strength: 100 UNIT/ML INSULN.PEN CALCIUM CARBONATE/VIT 2 TAB PO DAILY 03/03/23 04/08/23 D3 1944 1836 (CALCIUM CARB/VIT D3 500 MG/200 UNITS) Strength: 500 MG CALCIUM-5 MCG (200 UNIT) TAB CYANOCOBALAMIN 100 MCG PO DAILY 03/03/23 04/08/23 (VITAMIN B-12) 1944 1843 Strength: 100 MCG TAB TAMSULOSIN ER (FLOMAX) 0.8 MG PO BEDTIME 2 03/03/23 04/08/23 Strength: 0.4 MG 1938 1838 CAP.SR.24H INSULIN LISPRO (HumaLOG) 30 03/03/23 04/08/23 Strength: 100 UNIT/ML 1943 1844 VIAL FUROSEMIDE (LASIX) 20 MG PO BID 04/08/23 04/08/23 Strength: 20 MG TAB 1840 1840 BRIMONIDINE 1 DROP EACH EYE BID 04/08/23 04/08/23 (ALPHAGAN 0.2% OPHTH 1845 1848 SOLN) Strength: 0.2 % OPHTH.SOLN SULFAMETHOXAZOLE/TMP 1 TAB PO BID 04/08/23 04/08/23 (BACTRIM DS 800/160 MG) 1847 1848 Strength: 800 MG-160 MG TAB HYDROCHLOROTHIAZIDE 25 MG PO DAILY 04/08/23 04/08/23 (HYDRODIURIL) 1847 1848 Strength: 25 MG TAB LISINOPRIL (ZESTRIL) 20 MG PO DAILY 04/08/23 04/08/23 Strength: 20 MG TAB 184 184 ATORVASTATIN (LIPITOR) 40 MG PO 2100 30 30 03/13/23 04/08/23 Strength: 40 MG TAB 144 184 METOPROLOL TARTRATE 25 MG PO Q12HR 30 60 03/13/23 04/08/23 (LOPRESSOR) 1445 184 Strength: 25 MG TAB amLODIPine (NORVASC) 10 MG PO DAILY 30 30 03/13/23 04/08/23 Strength: 10 MG TAB 144 184 ASPIRIN 81 MG PO DAILY 30 30 03/13/23 04/08/23 Strength: 81 MG TAB.CHEW 144 183 Current Hospital Medications: Autonomic Drugs Sig/Yas Start time Last Medication [...] 05/12 1829 Enoxaparin Sodium 86 MG Q24H / 1615 DC 04/11 (lovENOX) SUBQ 05/09 1614 [...] 04/08 1800 AC (morphine SULFATE) IV 04/13 1759 Electrolytic, Caloric, And Agata Sig/Yas Start time Last Medication Dose Route Stop Time Status Admin Lactulose 20 GM BID PRN PRN 04/09 1900 AC 04/09 (LACTULOSE) PO 05/09 1859 1933 Sterile Water See Dose ASDIR PRN 04/09 1230 AC (WATER FOR Insts (1) IRR 05/09 1229 IRRIGATION) Sodium Chloride 1,000 ML .[id number] 04/09 1145 AC 04/12 (SODIUM CHLORIDE IV [...] 04/16 1529 (LOVENOX PHARMACY TO DOSE) Dose Instructions: (1)Sterile Water (WATER FOR IRRIGATION): DRESSING CHANGE Allergies: Coded Allergies: Penicillins (USE COMMENT BUTTON 03/03/23) PT STATES THAT HE WAS JUST TOLD THAT HE'S ALLERGIC TO PENICILLIN AND ITS NOT GONNA WORK FOR HIM Review of Symptoms ROS ROS comments: C/o weakness. SOB improving since hospitalization. He is interested in staying for inpatient rehab. Objective Physical Exam VS: Last Documented: Result Date Time Pulse Ox 96 04/12 711 B/P 143/68 04/12 07 B/P Mean 93.1 04/12 07 Temp 97.7 04/12 07 Pulse 70 04/12 07 Resp 16 04/12 07 O2 Delivery Nasal cannula 04/12 034 O2 Flow Rate 2 04/12 034 FiO2 28 04/10 0800 PATIENT WEIGHT: Weight (lb): Weight (oz): Weight (kg): 86.200 General appearance: alert, oriented Psych: alert, normal affect Neck: non-tender, supple Cardiovascular: regular rate rhythm, S1/S2 Respiratory: diminished breath sounds, on oxygen, aerating well Abdomen: bowel sounds present, soft, non-tender Ulcer: Type/cause: scab left foot. Musculoskeletal - general: Musculoskeletal - general: normal muscle mass Neuro/STONE BREAKER: alert, oriented X 3, CNII-XII intact, normal speech, no sensory deficits Results Findings/Data: Recent Impressions: NUCLEAR MEDICINE - NM LUNG PERF PARTICULATE 04/09 1130 Report Impression - Status: SIGNED Entered: 04/09/2023 1257 IMPRESSION: 1. Intermediate likelihood ratio for pulmonary embolism. Recommend CTA chest with contrast using PE protocol for further evaluation. Normal: < 5% probability of pulmonary embolism. Low likelihood ratio: < 20 % probability of pulmonary embolism. Intermediate likelihood ratio: 20-80% probability of pulmonary embolism. High likelihood ratio: > 80% probability of pulmonary embolism. Impression By: [email or web address] - Manish Son M.D. RADIOLOGY - XR FOOT 3 + V LT 04/09 1501 Report Impression - Status: SIGNED Entered: 04/10/2023 1119 IMPRESSION: No acute bony abnormalities or evidence of osteomyelitis. Impression By: [email or web address] - Morales Reyna M.D. ULTRASOUND - DUP VEIN SCOTTY 04/09 165 Report Impression - Status: SIGNED Entered: 04/09/2023 1756 IMPRESSION: No evidence of deep vein thrombosis. Impression By: [email or web address] - Chilo Cabrera M.D. ULTRASOUND - DUP LE ART SCOTTY 04/09 1659 [...] runoffs may be useful, if clinically indicated. Impression By: [email or web address] - Slava Tran M.D. ULTRASOUND - US RETROPERITONEAL COM 04/10 1127 Report [...] (Auto) (14.0 - 32.0 %) 8.1 L Grainger % (Auto) (4.8 - 9.0 %) 6.2 Eos % (Auto) (0.3 - 3.7 %) 2.4 Baso % (Auto) (0.0 - 2.0 %) 1.0 Neut # (Auto) (2.0 - 7.6 x10 3/uL) 3.40 Lymph # (Auto) (1.0 - 3.8 x10 3/uL) 0.34 L Grainger # (Auto) (0.1 - 0.8 x10 3/uL) [...] - 110 MG/DL) 214 H 230 H Microbiology: 04/11 0945 NASAL: MRSA DNA Surveillance Screen - COMP Diagnosis, Assessment Plan Free Text A P: 73 year old male with acute on chronic respiratory failure, elevated D-dimer, JERAMY on CKD, recent CABG and weakness. Continue with PT/OT. Recommend IRF placement for his ongoing medical and rehabilitation needs. He is willing to stay here at [facility]. Thank you for this consult, we will follow along and make any further rehab recommendations based on his overall functional status/progress. at 1354 RPT #:[id number] END OF REPORT [facility] 2023-04-11 23:38:00 [facility] Hospitalist Progress Note REPORT#:[id number] REPORT STATUS: Signed DATE:04/11/23 TIME: 2337 PATIENT: TEVIN NYE UNIT #: [id number] ROOM/BED: [place] [id number] : 51 AGE: 73 SEX: M ATTEND: Elvie Gamboa MD ADM AUTHOR: Elvie Gamboa MD * ALL edits or amendments must be made on the electronic/computer document * Subjective Chief complaint: feeling better. back to home oxygen HPI: Patient is a 73-year-old male with past medical history of CAD s/p CABG by Dr. Beyer 03/03/2028, pulmonary embolism in November 2022, prostate cancer s/p radiation 2021, former smoker with COPD on home oxygen. Patient presenting for shortness of breath. no fevers, chills or sweats. no other comPatient is a 73- year-old male with past medical history of CAD s/p CABG by Dr. Beyer 03/03/2028 , pulmonary embolism in November 2022, prostate cancer s/p radiation 2021, former smoker with COPD on home oxygen. Patient presenting for shortness of breath. Labs and imaging obtained have been personally reviewed. Objective General VS/I O: Vital Signs: Date Time Temp Pulse Resp [...] Weight (lb): Weight (oz): Weight (kg): 86.200 Medications: Active Meds + DC'd Last 24 Hrs Metoprolol Tartrate (LOPRESSOR) 25 MG Q8HR PO Atorvastatin Calcium (LIPITOR) 40 MG 2100 PO Lactulose (LACTULOSE) 20 GM BID PRN PRN PO Enoxaparin Sodium (lovENOX) 86 MG Q24H SUBQ Miscellaneous Information (LOVENOX PHARMACY TO DOSE) 1 EACH ASDIR SUBQ ( CKD) Sterile Water (WATER FOR IRRIGATION) DRESSING CHANGE ASDIR PRN IRR Sodium Chloride (SODIUM CHLORIDE 0.9%) 1,000 ML .[id number] IV Aspirin (ASPIRIN) 81 MG DAILY PO [...] 4 MG Q4H PRN PRN IV Physical Exam General appearance: no acute distress Head/Eyes: atraumatic, clear cornea, EOMI Neck: supple/no meningismus Cardiovascular: normal heart sounds, regular rate rhythm, no gallop, no murmur , no rub Respiratory: aerating well, clear to auscultation, symmetric expansion Abdomen: non-tender, normal bowel sounds, soft, no distention Extremities: no clubbing, no cyanosis, no edema Musculoskeletal: normal inspection, painless range of motion Neuro/STONE BREAKER: alert, oriented X 3, CNII-XII intact Skin: dry, intact Ulcer: Type/cause: scab left foot. Results Findings/Data: Laboratory Tests 04/11 04/11 04/11 04/11 1731 1200 [...] (Auto) (14.0 - 32.0 %) 9.6 L Grainger % (Auto) (4.8 - 9.0 %) 6.6 Eos % (Auto) (0.3 - 3.7 %) 1.9 Baso % (Auto) (0.0 - 2.0 %) 0.5 Neut # (Auto) (2.0 - 7.6 x10 3/uL) 3.00 Lymph # (Auto) (1.0 - 3.8 x10 3/uL) 0.36 L Grainger # (Auto) (0.1 - 0.8 x10 3/uL) [...] Diagnosis, Assessment Plan Free Text DxA P Notes Free text DxA P notes: SOB cardiology and pulmonary seen on 2 liters of oxygen per n/c echo wnl elevated D-dimer V-Q scan with intermediate probability on therapeutic lovenox renally dosed for now JERAMY with CKD renal seen on IVF creat improving COPD on home oxygen h/o CAD s/p CABG X4 on 03/04/2023 CTS consulted and seen DM accuchecks and SSI prn check A1C BG controlled HTN bp controlled resumed home meds HLD on statin stable Prostate cancer s/p XRT anemia hgb stable Debility per PT/OT could be a post acute rehab candidate consult rehab consulted CM for possible transfer to IRF follow labs at 1113 RPT #:[id number] END OF REPORT [facility] 2023-04-11 15:27:00 [facility]) Podiatry Progress Note REPORT#:[id number] REPORT STATUS: Signed DATE:04/11/23 TIME: 1527 PATIENT: TEVIN NYE UNIT #: [id number] ROOM/BED: [place] [id number] : 51 AGE: 73 SEX: M ATTEND: Elvie Gamboa MD ADM AUTHOR: Andres Rachel DPM * ALL edits or amendments must be made on the electronic/computer document * Subjective Patient reports: no constipation, no diarrhea, no fatigue, no headache, no heartburn Comments: dressing had fallen off of the foot. pt has pain. only takes tylenol. events notes. states 1st PT done and wetn well Objective General VS: Last Documented: Result Date Time Pulse Ox 97 04/11 1202 B/P 106/48 04/11 1202 B/P Mean 67.0 04/11 1202 O2 Delivery Room air 04/11 1202 Temp 36.4 04/11 1202 Pulse 78 04/11 1202 Resp 14 04/11 1202 O2 Flow Rate 2 04/11 0900 FiO2 28 04/10 0800 PATIENT WEIGHT: Weight (lb): Weight (oz): Weight (kg): 86.200 Medications: Active Meds + DC'd Last 24 Hrs Metoprolol Tartrate (LOPRESSOR) 25 MG Q8HR PO Atorvastatin Calcium (LIPITOR) 40 MG 2100 PO Lactulose (LACTULOSE) 20 GM BID PRN PRN PO Enoxaparin Sodium (lovENOX) 86 MG Q24H SUBQ Miscellaneous Information (LOVENOX PHARMACY TO DOSE) 1 EACH ASDIR SUBQ ( CKD) Sterile Water (WATER FOR IRRIGATION) DRESSING CHANGE ASDIR PRN IRR Sodium Chloride (SODIUM CHLORIDE 0.9%) 1,000 ML .[id number] IV Aspirin (ASPIRIN) 81 MG DAILY PO [...] 4 MG Q4H PRN PRN IV I O: 24 hour I O ending at 0700: 04/11 0700 08 1900 Intake Total 900.00 Output Total 900 Balance 0 Intake, IV 900.00 Number 1 Bowel Movements Output, Urine 900 Dietitian nutrition assessment The data set between the solid lines has been imported from the dietitian's assessment. BMI Calculated: 29.8 Nutrition related diagnosis: Nutrition diagnosis details: Nutrition problem: Nutrition etiology: Nutrition signs and symptoms: Nutrition prescription: Dietitian name: Assessment completed: Physical Exam General appearance: alert, awake, oriented Wound/incision: Location: bilat foot Site condition: small pinpoint ulcer right foot. ulcer left forefoot dorsal. partial and full thickness. no erythema. no depth. LE vascular pulse assess: Nonpalpable R posterior tibialis, Nonpalpable L posterior tibialis, Nonpalpable R dorsalis pedis, Nonpalpable L dorsalis pedis Results Findings/Data: Laboratory Tests: 04/11 04/11 04/11 04/11 1200 0821 0559 0443 Chemistry Sodium (134 - 147 mEq/L) 140 [...] Calcium (8.0 - 10.5 mg/dL) 7.9 L Hematology WBC (4.5 - 11.0 x10 [...] (Auto) (14.0 - 32.0 %) 9.6 L Grainger % (Auto) (4.8 - 9.0 %) 6.6 Eos % (Auto) (0.3 - 3.7 %) 1.9 Baso % (Auto) (0.0 - 2.0 %) 0.5 Neut # (Auto) (2.0 - 7.6 x10 3/uL) 3.00 Lymph # (Auto) (1.0 - 3.8 x10 3/uL) 0.36 L Grainger # (Auto) (0.1 - 0.8 x10 3/uL) 0.25 Eos # (Auto) (0.0 - 0.2 x10 3/uL) 0.07 Baso # (Auto) (0.0 - 0.2 x10 3/uL) 0.02 Abs Immat Gran (auto) (0.00 - 0.03 0.06 H x10 3/uL) Add Manual Diff NO Immature Gran % (0.0 - 2.0 %) 1.6 Nucleated RBC % (0 - 0 %) 0.0 Nucleated RBCs # (Man) (0.0 - 0.1 0.00 x10 3/uL) Eos Smear Total Cells NONE SEEN Urines Ur Random Creatinine (mg/dL) 91.5 U Random Total Protein (mg/dL) 40 Protein/Creatinin Ratio 0.44 04/10 04/10 04/10 1955 1620 1613 Chemistry POC Glucose (70 - 110 MG/DL) 198 H 213 H Iron (35 - 150 mcg/dL) 47 TIBC (260 - 445 mcg/dL) 204 L % Saturation (14 - 34 %) 23.0 Unsat Iron Binding (mcg/dL) 157 Ferritin (23.9 - 336.2 ng/mL) 255.2 Diagnosis, Assessment Plan Free Text A P: ulcer left foot. pain PVD ulcer is benign...starting to peel continue local wound care. no xray found. venous u/s neg NIAS: pvd as expected. covering for Dr. Washington at 1529 RPT #:[id number] END OF REPORT [facility] 2023-04-11 14:53:00 [facility]) Pulmonology Progress Note REPORT#:[id number] REPORT STATUS: Signed DATE:04/11/23 TIME: 1452 PATIENT: TEVIN NYE UNIT #: [id number] ROOM/BED: [place] [id number] : 51 AGE: 73 SEX: M ATTEND: Elvie Gamboa MD ADM AUTHOR: Rose Canseco PA * ALL edits or amendments must be made on the electronic/computer document * Rose Canseco 04/11/23 1453: Subjective Chief complaint: sob HPI: Coverage for Dr. Alan. Seen and examined, events noted. h/h slowly downtrending reports small amount of blood in stool on O2 via NC less sob ROS neg f/c, n/v, cp Objective General VS/I O: Last Documented: Result Date Time Pulse Ox [...] (lb): Weight (oz): Weight (kg): 86.200 Physical Exam General appearance: alert, awake, oriented, no acute distress Head/eyes: atraumatic, normocephalic, PERRL, EOMI Neck: no JVD, no lymphadenopathy Cardiovascular: normal heart sounds, normal S1/S2, regular rate rhythm Respiratory/chest: decreased breath sounds, on oxygen, aerating well, symmetric expansion Abdomen: soft, no guarding Extremities: moves all, no clubbing, no cyanosis, no edema Neuro/STONE BREAKER: CNII-XII intact Skin: dry, intact Ulcer: Type/cause: scab left foot. Psychiatry: normal affect, normal judgment/insight, normal mood Results Findings/Data: Laboratory Tests 04/11/23 0559: [Embedded Image Not Available] Laboratory Tests 04/11 04/11 04/11 04/10 04/10 1200 [...] (Auto) (14.0 - 32.0 %) 9.6 L Grainger % (Auto) (4.8 - 9.0 %) 6.6 Eos % (Auto) (0.3 - 3.7 %) 1.9 Baso % (Auto) (0.0 - 2.0 %) 0.5 Neut # (Auto) (2.0 - 7.6 x10 3/uL) 3.00 Lymph # (Auto) (1.0 - 3.8 x10 3/uL) 0.36 L Grainger # (Auto) (0.1 - 0.8 x10 3/uL) [...] (mg/dL) 40 Protein/Creatinin Ratio 0.44 Diagnosis, Assessment Plan Free Text A P: Acute on chronic hypoxemic respiratory failure supplemental O2 as needed and wean as tolerated Pulmonary embolism Initially diagnosed in November 2022 at outside hospital; was on Eliquis from diagnosis through February. CTA chest 03/03/2023 was negative for pulmonary embolism. Patient was discharged home 03/13/2023 and told to discontinue taking Eliquis. -D-dimer 1496. -VQ scan with intermediate probability. 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 Check bilateral lower extremity Dopplers -> neg -Renally dose lovenox @ 1mg/kg once daily -d/w cardio. will ultimately AC with eliquis asa and DC plavix. Continue lovenox for now. COPD No exacerbation. On Combivent and ipratropium nebs at home. -May need repeat pulmonary function test outpatient. 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 1.5 x 0.8 cm nodular opacity in RLL needs follow-up in 3 months CAD / PAD S/p CABG 03/04/2023 Cardiothoracic surgery following Pending echo - will need periph angio when cr improved JERAMY/CKD Nephrology consult Strict I O. Measure UOP. - IVF Follow labs History of prostate cancer S/p radiation in 2021 Christiano Gutierrez 04/11/23 1847: Diagnosis, Assessment Plan Orders: Procedure Date/time Status CBC W/AUTO DIFF 04/12 0500 Active EVAL PT HIGH COMPLEX [id number] 04/11 1404 Active PT: POCC - PT STAFF ONLY 04/11 1404 Active ADL 15 MIN 04/11 1113 Active FUNCTIONAL TRAINING 04/11 1108 Active OT: POCC - OT STAFF ONLY 04/11 110 Active EVAL OT HIGH COMPLEX [id number] 04/11 1103 Active Attestations Physician Attestation Agree w/findings plan: Seen and examined. I agree with the findings and plan as documented by Carlos Canseco PA-C. at 1458 at 8502 RPT #:[id number] END OF REPORT [facility] 2023-04-11 12:37:00 [facility] Cardiology Progress Note REPORT#:[id number] REPORT STATUS: Signed DATE:04/11/23 TIME: 1237 PATIENT: TEVIN NYE UNIT #: [id number] ROOM/BED: [place] [id number] : 51 AGE: 73 SEX: M ATTEND: Elvie Gamboa MD ADM AUTHOR: Daniela Mari AGACNP * ALL edits or amendments must be made on the electronic/computer document * Objective General VS/I O: 24 hour I O ending at 0700: [...] Weight (lb): Weight (oz): Weight (kg): 86.200 Medications: Active Meds + DC'd Last 24 Hrs Metoprolol Tartrate (LOPRESSOR) 25 MG Q8HR PO Atorvastatin Calcium (LIPITOR) 40 MG 2100 PO Lactulose (LACTULOSE) 20 GM BID PRN PRN PO Enoxaparin Sodium (lovENOX) 86 MG Q24H SUBQ Miscellaneous Information (LOVENOX PHARMACY TO DOSE) 1 EACH ASDIR SUBQ ( CKD) Sterile Water (WATER FOR IRRIGATION) DRESSING CHANGE ASDIR PRN IRR Sodium Chloride (SODIUM CHLORIDE 0.9%) 1,000 ML .[id number] IV Aspirin (ASPIRIN) 81 MG DAILY PO [...] 4 MG Q4H PRN PRN IV Physical Exam General appearance: alert, awake, oriented Neck: non-tender, no JVD Cardiovascular: CV assessment: ectopy, irregular rhythm Respiratory: decreased breath sounds, no distress Abdomen: soft, non-tender, normal bowel sounds, no distention Genitourinary: no flank pain, no urinary catheter Lower extremity: LE assessment: abnormal pedal pulse Musculoskeletal: normal inspection Neuro/STONE BREAKER: alert, oriented X 3, normal speech Skin: dry, intact Ulcer: Type/cause: scab left foot. Psychiatry: normal affect, normal judgment/insight, normal mood Results Findings/Data: Laboratory Tests 04/11 04/11 04/11 04/10 04/10 1200 [...] (Auto) (14.0 - 32.0 %) 9.6 L Grainger % (Auto) (4.8 - 9.0 %) 6.6 Eos % (Auto) (0.3 - 3.7 %) 1.9 Baso % (Auto) (0.0 - 2.0 %) 0.5 Neut # (Auto) (2.0 - 7.6 x10 3/uL) 3.00 Lymph # (Auto) (1.0 - 3.8 x10 3/uL) 0.36 L Grainger # (Auto) (0.1 - 0.8 x10 3/uL) [...] reviewed, vital signs reviewed, rhythm personally rev'd Telemetry Interpretation: sinus with PVC Diagnosis, Assessment Plan Plan discussed with: patient, son, collaborating MD Free Text DxA P Notes Free Text DxA P Notes: 73 YO male with MHx of CAD s/p CABG less than 1 month ago, COPD, PE. He presents with generalized weakness and near syncope. Per family [...] d/t PE * Hx of PE, elevated D-dimer * Unable to CTA due to elevated creatinine * pulmonary is also consulted * echocardiogram preserved LVEF * VQ suggestive of pulmonary embolism 2. CAD s/p CABG * stop Plavix, continue baby ASA plus AC of choice by pulmonology * continue BB and statin 3. JERAMY on CKD 2/2 volume depletion * creatinine trending down 3->2.9->2.4->1.9 (creat 1.6 when he was discharge 2 weeks ago) * hold lisinopril * nephrology following * continue IVF 4. Left foot ulcer/abnormal arterial doppler * possible peripheral angiogram when kidney function stabilize * podiatry following 5. Hx of COPD * pulmonary following 6. Acute Pulmonary embolism - recurrent * AC per pulmonology * LE venous doppler no DVT 7. PVCs * Stop amlodipine as BP is soft * continue metoprolol for PVC and CAD Overall doing well. Stable CV status. mobilize OOB. PT/OT. MDM by Dr. Haynes. at 1240 at 1653 RPT #:[id number] END OF REPORT [facility] 2023-04-11 10:54:00 [facility] Cardiothoracic Surgery Prog REPORT#:[id number] REPORT STATUS: Signed DATE:04/11/23 TIME: 1054 PATIENT: TEVIN NYE UNIT #: [id number] ROOM/BED: [place] [id number] : 51 AGE: 73 SEX: M ATTEND: Elvie Gamboa MD ADM AUTHOR: Evon Andrew Physic * ALL edits or amendments must be made on the electronic/computer document * General Status post: 03/04/2023 CABG x 4 (MCCORMICK-LAD,SVG-Leana, SVG-OM, SVG-PDA Subjective Chief complaint: Resting comfortable. Review of Systems Constitutional: Denies: fever, generalized weakness. Respiratory: Reports: SOB. Cardiovascular: Reports: [place] (dyspnea on exertion). Denies: chest pain, edema. GI: Denies: constipation, diarrhea. Musculoskeletal: Denies: joint pain, joint swelling. Heme: Denies: bleeding, bruising. Endocrine: Denies: polydipsia, polyuria. Neuro: Denies: dizziness. Psych: Denies: agitation, anxiety. All systems rev neg: except as marked Objective General VS/I O Last Documented: Result Date Time Pulse Ox 99 04/11 851 O2 Delivery Nasal cannula 04/11 851 O2 Flow Rate 3 04/11 0851 B/P 107/60 04/11 822 B/P Mean 76.0 [...] (lb): Weight (oz): Weight (kg): 86.200 Physical Exam General appearance: alert, awake, oriented HEENT: mucosal membranes moist Cardiovascular: regular rate rhythm Respiratory: aerating well, clear to auscultation Abdomen: soft, non-tender Extremities: dry, moves all Musculoskeletal: full range of motion Neuro/STONE BREAKER: alert, oriented X 3 Skin: dry, intact Ulcer: Type/cause: scab left foot. Diagnosis, Assessment Plan Hospital course to date: This is a 73-year-old gentleman with past medical history of coronary artery disease status post coronary artery bypass graft surgery on 03/04/2023 CABG x 4 (MCCORMICK-LAD,SVG-Leana, SVG-OM, SVG-PDA) Patient was DC'd home on 03/13/2023. He was DC'd home on home oxygen for findings consistent with COPD. The patient reports over the past few weeks he has experienced increased shortness of breath with exertion. The patient denies any lower extremity edema and in fact reports his lower extremity edema has slightly improved since his hospital stay. The patient presented to hospital on [facility] for evaluation of shortness of breath. During his hospitalization for coronary bypass graft surgery the patient's creatinine wero to 3 and came down to baseline of 1.6. His admission creatinine today 2.9 The patient denies any chest pains, denies any palpitations. Assessment/plan 1. Coronary artery disease Status post coronary bypass graft surgery 03/04/2023 2. CKD Consult renal 3. COPD 4. Shortness of breath Sternal wound is clean and dry. There is no signs of infection. Sternum is stable. Left leg wound graft site also clean and dry no signs of infection We will obtain echocardiogram, cardiac consultation and renal consultation. Continue daily labs Daily chest x-ray We will continue to follow 04/09/23 Patient resting comfortable ON 2 L NC Labs reviewed Elevated Creatine. Nephrology consulted. Awaiting echo- Cardiology consulted. COPD, will consult pulmonary Patient was seen and examined by Dr. Beyer. Continue supportive care 04/10/23 Patient resting comfortable Denies complaints, feeling better Creatinine improving, renal following. Given IV fluids Restart back on Eliquis as per pulmonary recommendation due to history of PE, DC Plavix Echocardiogram completed showing EF 55-59%, Trivial pericardial effusion COPD, pulmonary following Continue supportive care. 04/11/23 Patient resting comfortable, denies chest pains, denies shortness of breath Creatinine improving, renal following Shortness of breath improved Restarted on patient's Eliquis. History of PEs followed by pulmonary Patient doing well. Discharge planning in progress as per multidisciplinary teams. No CV surgical indication Patient was seen and examined by Dr. Beyer at 1056 at 0731 RPT #:[id number] END OF REPORT [facility] 2023-04-11 09:10:00 [facility] ([facility] Nephrology Progress Note REPORT#:[id number] REPORT STATUS: Signed DATE:04/11/23 TIME: 909 PATIENT: TEVIN NYE UNIT #: [id number] ROOM/BED: [place] [id number] : 51 AGE: 73 SEX: M ATTEND: Elvie Gamboa MD ADM AUTHOR: Monserrat Bobo MD * ALL edits or amendments must be made on the electronic/computer document * Subjective Chief complaint: Follow-up of acute renal failure, ATN/AIN Review of Systems Constitutional: Reports: generalized weakness. All systems rev neg: except as marked Objective General VS/I O: Vital Signs: Date Time Temp Pulse Resp B/P B/P Pulse O2 O2 Flow FiO2 Mean Ox Delivery Rate 04/11 1202 97.5 78 14 106/48 67.0 97 Room air 04/11 0900 Nasal 2 cannula 04/11 0851 99 Nasal 3 cannula 04/11 822 97.5 61 14 107/60 76.0 97 Nasal [...] Weight (lb): Weight (oz): Weight (kg): 86.200 Medications Active Meds + DC'd Last 24 Hrs Metoprolol Tartrate (LOPRESSOR) 25 MG Q8HR PO Atorvastatin Calcium (LIPITOR) 40 MG 2100 PO Lactulose (LACTULOSE) 20 GM BID PRN PRN PO Enoxaparin Sodium (lovENOX) 86 MG Q24H SUBQ Miscellaneous Information (LOVENOX PHARMACY TO DOSE) 1 EACH ASDIR SUBQ ( CKD) Sterile Water (WATER FOR IRRIGATION) DRESSING CHANGE ASDIR PRN IRR Sodium Chloride (SODIUM CHLORIDE 0.9%) 1,000 ML .[id number] IV Aspirin (ASPIRIN) 81 MG DAILY PO [...] 4 MG Q4H PRN PRN IV Physical Exam General appearance: alert, awake, oriented Head/eyes: atraumatic, normocephalic ENT: moist mucous membranes Neck: supple/no meningismus, no JVD Cardiovascular: normal heart sounds, no rub Respiratory: aerating well, clear to auscultation Genitourinary: no bladder distention Extremities: no edema Neuro/STONE BREAKER: alert, oriented X 3 Ulcer: Type/cause: scab left foot. Results Findings/Data: Laboratory Tests 04/11 04/11 04/11 04/10 1200 0821 [...] (Auto) (14.0 - 32.0 %) 9.6 L Grainger % (Auto) (4.8 - 9.0 %) 6.6 Eos % (Auto) (0.3 - 3.7 %) 1.9 Baso % (Auto) (0.0 - 2.0 %) 0.5 Neut # (Auto) (2.0 - 7.6 x10 3/uL) 3.00 Lymph # (Auto) (1.0 - 3.8 x10 3/uL) 0.36 L Grainger # (Auto) (0.1 - 0.8 x10 3/uL) [...] Total Cells NONE SEEN Laboratory Tests 04/11 443 Urines Ur Random Creatinine (mg/dL) 91.5 U Random Total Protein (mg/dL) 40 Protein/Creatinin Ratio 0.44 Diagnosis, Assessment Plan Free Text A P: Assessment/plan: 1. Acute renal failure most likely secondary to volume depletion, overdiuresis and ATN/AIN with Bactrim and lisinopril on board, continue normal saline hydration, Cr further better 2.9-2.4-1.9 today, renal sono reviewed, urine eosinophils pending, urine proten/cr ratio 0.4 CKD baseline creatinine 1.6 back in March 2023 2. Coronary artery disease: Status post CABG, continue home medications 3. COPD: Symptomatic treatment 4. History of prostate cancer, s/p radiation 2021 5. Anemia: Requested stool occult blood-not sent yet, and iron studies reviewed- ok, transfuse as needed for hemoglobin less than 7. at 1652 RPT #:[id number] END OF REPORT [facility] 2023-04-11 01:48:00 [facility] Hospitalist Progress Note REPORT#:[id number] REPORT STATUS: Signed DATE:04/11/23 TIME: 8 PATIENT: TEVIN NYE UNIT #: [id number] ROOM/BED: [place] [address] : 51 AGE: 73 SEX: M ATTEND: Elvie Gamboa MD ADM AUTHOR: Elvie Gamboa MD * ALL edits or amendments must be made on the electronic/computer document * Subjective Chief complaint: late entry note for april 10 feeling better. back to home oxygen HPI: Patient is a 73-year-old male with past medical history of CAD s/p CABG by Dr. Beyer 03/03/2028, pulmonary embolism in November 2022, prostate cancer s/p radiation 2021, former smoker with COPD on home oxygen. Patient presenting for shortness of breath. no fevers, chills or sweats. no other comPatient is a 73- year-old male with past medical history of CAD s/p CABG by Dr. Beyer 03/03/2028 , pulmonary embolism in November 2022, prostate cancer s/p radiation 2021, former smoker with COPD on home oxygen. Patient presenting for shortness of breath. Labs and imaging obtained have been personally reviewed. Objective General VS/I O: Vital Signs: Date Time Temp Pulse Resp B/P B/P Pulse O2 O2 Flow FiO2 Mean Ox Delivery Rate 04/11 0001 98.1 74 14 110/54 72.6 97 / 2110 Nasal 2 cannula 04/10 203 98 Nasal 2 cannula / 1956 97.7 80 14 122/53 76.3 96 / 1645 98 Nasal 3 cannula 04/10 1614 97.3 42 14 117/51 72.5 94 Nasal cannula 04/10 1143 97.7 38 14 113/57 75.9 91 Room air 04/10 1032 Nasal 3 cannula 04/10 0800 98 Nasal 2 28 cannula 04/10 0729 97.9 68 16 103/51 68.2 99 Room air 04/10 0316 97.7 49 14 110/71 84.2 97 24 hour I O ending at 0700: 04/11 0700 04/10 1900 Intake Total Output Total Balance Number 1 Bowel Movements PATIENT WEIGHT: Weight (lb): Weight (oz): Weight (kg): 86.200 Medications: Active Meds + DC'd Last 24 Hrs Metoprolol Tartrate (LOPRESSOR) 25 MG Q8HR PO Atorvastatin Calcium (LIPITOR) 40 MG 2100 PO Lactulose (LACTULOSE) 20 GM BID PRN PRN PO Enoxaparin Sodium (lovENOX) 86 MG Q24H SUBQ Miscellaneous Information (LOVENOX PHARMACY TO DOSE) 1 EACH ASDIR SUBQ ( CKD) Sterile Water (WATER FOR IRRIGATION) DRESSING CHANGE ASDIR PRN IRR Sodium Chloride (SODIUM CHLORIDE 0.9%) 1,000 ML .[id number] IV Aspirin (ASPIRIN) 81 MG DAILY PO [...] 4 MG Q4H PRN PRN IV Physical Exam General appearance: no acute distress Head/Eyes: atraumatic, clear cornea, EOMI Neck: supple/no meningismus Cardiovascular: normal heart sounds, regular rate rhythm, no gallop, no murmur , no rub Respiratory: aerating well, clear to auscultation, symmetric expansion Abdomen: non-tender, normal bowel sounds, soft, no distention Extremities: no clubbing, no cyanosis, no edema Musculoskeletal: normal inspection, painless range of motion Neuro/STONE BREAKER: alert, oriented X 3, CNII-XII intact Skin: dry, intact Ulcer: Type/cause: scab left foot. Results Findings/Data: Laboratory Tests 04/10 1620 1613 1142 0722 Chemistry [...] - 10.5 mg/dL) 8.6 Laboratory Tests 04/10 06 Hematology WBC (4.5 - 11.0 x10 3/uL) [...] (Auto) (14.0 - 32.0 %) 8.6 L Grainger % (Auto) (4.8 - 9.0 %) 7.7 Eos % (Auto) (0.3 - 3.7 %) 0.7 Baso % (Auto) (0.0 - 2.0 %) 0.9 Neut # (Auto) (2.0 - 7.6 x10 3/uL) 3.58 Lymph # (Auto) (1.0 - 3.8 x10 3/uL) 0.38 L Grainger # (Auto) (0.1 - 0.8 x10 3/uL) [...] Diagnosis, Assessment Plan Free Text DxA P Notes Free text DxA P notes: SOB cardiology and pulmonary seen on 2 liters of oxygen per n/c echo wnl elevated D-dimer V-Q scan with intermediate probability on therapeutic lovenox renally dosed for now JERAMY with CKD renal seen on IVF creat improving COPD on home oxygen h/o CAD s/p CABG X4 on 03/04/2023 CTS consulted and seen DM accuchecks and SSI prn check A1C BG controlled HTN bp controlled resumed home meds HLD on statin stable Prostate cancer s/p XRT anemia hgb dropping could be dilutation no signs of active bleeding continue to monitor follow labs at 1112 RPT #:[id number] END OF REPORT [facility] 2023-04-10 14:17:00 [facility] ([facility]) Nephrology Progress Note REPORT#:[id number] REPORT STATUS: Signed DATE:04/10/23 TIME: 1417 PATIENT: TEVIN NYE UNIT #: [id number] ROOM/BED: [place] [address] : 51 AGE: 73 SEX: M ATTEND: Elvie Gamboa MD ADM AUTHOR: Monserrat Bobo MD * ALL edits or amendments must be made on the electronic/computer document * Subjective Chief complaint: Follow-up of acute renal failure, ATN/AIN Review of Systems Constitutional: Reports: generalized weakness. All systems rev neg: except as marked Objective General VS/I O: Vital Signs: Date Time Temp Pulse Resp [...] cannula 04/09 2013 Nasal 3 cannula 04/09 194 97 Nasal 2 cannula 04/09 190 97.7 73 14 121/64 83.3 100 PATIENT WEIGHT: Weight (lb): Weight (oz): Weight (kg): 86.200 Medications Active Meds + DC'd Last 24 Hrs Metoprolol Tartrate (LOPRESSOR) 25 MG Q8HR PO Atorvastatin Calcium (LIPITOR) 40 MG 2100 PO Lactulose (LACTULOSE) 20 GM BID PRN PRN PO Enoxaparin Sodium (lovENOX) 86 MG Q24H SUBQ Miscellaneous Information (LOVENOX PHARMACY TO DOSE) 1 EACH ASDIR SUBQ ( CKD) Sterile Water (WATER FOR IRRIGATION) DRESSING CHANGE ASDIR PRN IRR Sodium Chloride (SODIUM CHLORIDE 0.9%) 1,000 ML .[id number] IV Aspirin (ASPIRIN) 81 MG DAILY PO [...] 4 MG Q4H PRN PRN IV Physical Exam General appearance: alert, awake, oriented Head/eyes: atraumatic, normocephalic ENT: moist mucous membranes Neck: supple/no meningismus, no JVD Cardiovascular: normal heart sounds, no rub Respiratory: aerating well, clear to auscultation Genitourinary: no bladder distention Extremities: no edema Neuro/STONE BREAKER: alert, oriented X 3 Ulcer: Type/cause: scab left foot. Results Findings/Data: Laboratory Tests 04/10 04/10 04/10 04/09 1142 0722 [...] (Auto) (14.0 - 32.0 %) 8.6 L Grainger % (Auto) (4.8 - 9.0 %) 7.7 Eos % (Auto) (0.3 - 3.7 %) 0.7 Baso % (Auto) (0.0 - 2.0 %) 0.9 Neut # (Auto) (2.0 - 7.6 x10 3/uL) 3.58 Lymph # (Auto) (1.0 - 3.8 x10 3/uL) 0.38 L Grainger # (Auto) (0.1 - 0.8 x10 3/uL) [...] (0.0 - 0.1 x10 3/uL) 0.00 Radiology data: Recent Impressions: RADIOLOGY - XR FOOT 3 + V LT 04/09 1501 Report Impression - Status: SIGNED Entered: 04/10/2023 1119 IMPRESSION: No acute bony abnormalities or evidence of osteomyelitis. Impression By: [email or web address] - Morales Renya M.D. ULTRASOUND - DUP VEIN SCOTTY 04/09 1659 Report Impression - Status: SIGNED Entered: 04/09/2023 1756 IMPRESSION: No evidence of deep vein thrombosis. Impression By: [email or web address] - Chilo Cabrera M.D. ULTRASOUND - DUP LE ART SCOTTY 04/09 1659 [...] runoffs may be useful, if clinically indicated. Impression By: [email or web address] - Slava Tran M.D. Diagnosis, Assessment Plan Free Text A P: Assessment/plan: 1. Acute renal failure most likely secondary to volume depletion, overdiuresis and ATN/AIN with Bactrim and lisinopril on board, continue normal saline hydration, Cr litle better 2.9-2.4 today, renal sono pending, urine eosinophils pending, urine studies CKD baseline creatinine 1.6 back in March 2023 2. Coronary artery disease: Status post CABG, continue home medications 3. COPD: Symptomatic treatment 4. History of prostate cancer, s/p radiation 2021 5. anemia: Requested stool occult blood and iron studies, transfuse as needed for hemoglobin less than 7. at 1426 RPT #:[id number] END OF REPORT [facility] 2023-04-10 11:14:00 [facility] Cardiothoracic Surgery Prog REPORT#:[id number] REPORT STATUS: Signed DATE:04/10/23 TIME: 1114 PATIENT: TEVIN NYE UNIT #: [id number] ROOM/BED: [place] [address] : 51 AGE: 73 SEX: M ATTEND: Elvie Gamboa MD ADM AUTHOR: Evon Andrew Physic * ALL edits or amendments must be made on the electronic/computer document * General Status post: 03/04/2023 CABG x 4 (MCCORMICK-LAD,SVG-Leana, SVG-OM, SVG-PDA Subjective Chief complaint: Resting comfortable. Review of Systems Constitutional: Denies: fever, generalized weakness. Respiratory: Reports: SOB. Cardiovascular: Reports: [place] (dyspnea on exertion). Denies: chest pain, edema. GI: Denies: constipation, diarrhea. Musculoskeletal: Denies: joint pain, joint swelling. Heme: Denies: bleeding, bruising. Endocrine: Denies: polydipsia, polyuria. Neuro: Denies: dizziness. Psych: Denies: agitation, anxiety. Objective General VS/I O Last Documented: Result Date Time O2 Delivery Nasal cannula 04/10 103 O2 Flow Rate 3 04/10 103 Pulse Ox 99 04/10 729 B/P 103/51 04/10 729 B/P Mean 68.2 04/10 729 Temp 97.9 04/10 729 Pulse 68 04/10 729 Resp 16 04/10 729 PATIENT WEIGHT: Weight (lb): Weight (oz): Weight (kg): 86.200 Physical Exam General appearance: alert, awake, oriented HEENT: mucosal membranes moist Cardiovascular: regular rate rhythm Respiratory: aerating well, clear to auscultation Abdomen: soft, non-tender Extremities: dry, moves all Musculoskeletal: full range of motion Neuro/STONE BREAKER: alert, oriented X 3 Skin: dry, intact Diagnosis, Assessment Plan Hospital course to date: This is a 73-year-old gentleman with past medical history of coronary artery disease status post coronary artery bypass graft surgery on 03/04/2023 CABG x 4 (MCCORMICK-LAD,SVG-Leana, SVG-OM, SVG-PDA) Patient was DC'd home on 03/13/2023. He was DC'd home on home oxygen for findings consistent with COPD. The patient reports over the past few weeks he has experienced increased shortness of breath with exertion. The patient denies any lower extremity edema and in fact reports his lower extremity edema has slightly improved since his hospital stay. The patient presented to hospital on [facility] for evaluation of shortness of breath. During his hospitalization for coronary bypass graft surgery the patient's creatinine wero to 3 and came down to baseline of 1.6. His admission creatinine today 2.9 The patient denies any chest pains, denies any palpitations. Assessment/plan 1. Coronary artery disease Status post coronary bypass graft surgery 03/04/2023 2. CKD Consult renal 3. COPD 4. Shortness of breath Sternal wound is clean and dry. There is no signs of infection. Sternum is stable. Left leg wound graft site also clean and dry no signs of infection We will obtain echocardiogram, cardiac consultation and renal consultation. Continue daily labs Daily chest x-ray We will continue to follow 04/09/23 Patient resting comfortable ON 2 L NC Labs reviewed Elevated Creatine. Nephrology consulted. Awaiting echo- Cardiology consulted. COPD, will consult pulmonary Patient was seen and examined by Dr. Beyer. Continue supportive care 04/10/23 Patient resting comfortable Denies complaints, feeling better Creatinine improving, renal following. Given IV fluids Restart back on Eliquis as per pulmonary recommendation due to history of PE, DC Plavix Echocardiogram completed showing EF 55-59%, Trivial pericardial effusion COPD, pulmonary following Continue supportive care. at 1141 at 0731 [facility] #:[id number] END OF REPORT [facility] 2023-04-10 09:30:00 [id number] [address] PATIENT NAME: TEVIN NYE ADMIT DATE: 04/08/23 ACCOUNT NO: [id number] ROOM NO: [id number] AGE: 73 REPORT TYPE: eECHOCARDIOGRAM REPORT SEX: M ADMITTING PHYSICIAN:Elvie Gamboa MD ATTENDING PHYSICIAN:Elvie Gamboa MD *[address] [place] [address] Transthoracic Echocardiogram Patient: Tevin Nye Study Date: 04/09/2023 BP: 103 / 58 Location: LEFTY URN: [id number] : 1950 Age: 73 Height: 67 in / 170.2 cm Gender: M Weight: 189.6 lb / 86.2 kg BMI/BSA: 29.8 kg/m 2 / 1.98 m 2 *Ordering Physician: * Evon Andrew *Interpreting Physician: * Anibal Haynes MD *[employer] Applier: * Tori Gunn Indications: Shortness of Breath; S/P CABG. Study data: Transthoracic echocardiogram. Procedure: Transthoracic echocardiography was performed. Image quality was adequate. The study was technically limited due to body habitus. Complete 2D, complete spectral Doppler, and color Doppler. Location: Bedside. Patient status: Inpatient. Patient room number: 5517. Study status: Routine. Rhythm: Bradycardia. Findings Left ventricle: The cavity size is normal. Wall thickness is normal. Systolic function is normal. The estimated ejection fraction is 55-59%. Average global longitudinal strain is -10.6. The tissue Doppler parameters are abnormal. Right ventricle: Estimated TAPSE is 1.8 cm. The cavity size is normal. PATIENT NAME: TEVIN NYE Systolic function is normal. Systolic pressure is within the normal range. Left atrium: The atrium is normal in size. Right atrium: The atrium is normal in size. Aorta: Aortic root: The aortic root is normal in size. Aortic valve: The valve is structurally normal. The valve is trileaflet. There is no evidence of stenosis. There is no regurgitation. Mitral valve: The valve is structurally normal. There is no evidence of stenosis. There is mild regurgitation. Tricuspid valve: Estimated right ventricular systollic pressure is 25 mmHg. The valve is structurally normal. There is mild regurgitation. Pulmonic valve: Not visualized. There is no regurgitation. Pericardium: A trivial pericardial effusion is identified. Pulmonary arteries: Main pulmonary artery: The artery is of normal size. Systemic veins: Inferior vena cava: The vessel is normal in size. The respirophasic diameter changes are in the [...] A2C PW, ED 0.7 cm 0.9 0.6 - PATIENT NAME: TEVIN NYE 1.0 IVS/PW, ED 1.28 0.94 ---- EF 56 % 48 52 - 72 E', lat 13.6 cm/sec >=10 yoanna, TDI .0 E/e', lat 9 ---- yoanna, TDI E', med 7.3 cm/sec >=7. yoanna, TDI 0 E/e', med 16 ---- yoanna, TDI E', avg, 10.5 cm/sec ---- TDI [...] AP dim, ES 3.79 cm 3.00 - 4.00 PATIENT NAME: TEVIN NYE Vol/bsa, 19 ml/m 2 [...] m/sec ---- Mean v, D 0.62 m/sec ---- PATIENT NAME: TEVIN NYE VTI 37.1 cm ---- leaflet coapt Decel time 189 ms ---- PHT 75 ms ---- Mean grad, 1.9 mm Hg ---- D Peak grad, 5.6 mm Hg ---- D Peak E/A 1.6 ---- ratio MVA, PHT 2.9 cm 2 ---- MR peak v 2.57 m/sec ---- Pulmonic valve Value 03/11/2023 Ref MO v, ED 0.56 m/sec ---- Tricuspid valve Value 03/11/2023 Ref TR peak v 2.24 m/sec <=2. 8 Peak RV-RA 20 mm Hg ---- grad, S Aortic root Value 03/11/2023 Ref Root diam, 3.42 cm ---- ED MM Conclusions Summary: 1. Left ventricle: The cavity size is normal. Wall thickness is normal. Systolic function is normal. The estimated ejection fraction is 55-59%. 2. Mitral valve: There is mild regurgitation. 3. Tricuspid valve: Estimated right ventricular systollic pressure is 25 mmHg. There is mild regurgitation. 4. Pericardium, extracardiac: A trivial pericardial effusion is identified. Prepared and electronically signed by Anibal Haynes MD 04/10/2023 09:30 at 0930 PATIENT NAME: TEVIN NYE [facility] 2023-04-10 08:17:00 [facility]) Pulmonology Progress Note REPORT#:[id number] REPORT STATUS: Signed DATE:04/10/23 TIME: 816 PATIENT: TEVIN NYE UNIT #: [id number] ROOM/BED: [place] [address] : 51 AGE: 73 SEX: M ATTEND: Elvie Gamboa MD ADM AUTHOR: Rose Canseco PA * ALL edits or amendments must be made on the electronic/computer document * Rose Canseoc 04/10/23 0817: Subjective Chief complaint: sob HPI: Coverage for Dr. Alan. Seen and examined, events noted. BLE doppler neg DVT discussed anticoag with cardio to maximize therapy and limit bleed risk cardio okay with DC'ing plavix to initiate dual therapy with eliquis/asa will need periph angio when cr improved pt with no new c/o. discussed poc pt is agreeable. ROS neg f/c, n/v, cp Objective General VS/I O: Last Documented: Result Date Time Pulse Ox 99 04/10 729 B/P 103/51 04/10 729 B/P Mean 68.2 04/10 729 O2 Delivery Room air 04/10 729 Temp 97.9 04/10 729 Pulse 68 04/10 729 Resp 16 04/10 729 O2 Flow Rate 3 04/090 PATIENT WEIGHT: Weight (lb): Weight (oz): Weight (kg): 86.200 Physical Exam General appearance: alert, awake, oriented, no acute distress Head/eyes: atraumatic, normocephalic, PERRL, EOMI Neck: no JVD, no lymphadenopathy Cardiovascular: normal heart sounds, normal S1/S2, regular rate rhythm Respiratory/chest: decreased breath sounds, on oxygen, aerating well, symmetric expansion Abdomen: soft, no guarding Extremities: moves all, no clubbing, no cyanosis, no edema Neuro/STONE BREAKER: CNII-XII intact Skin: dry, intact Psychiatry: normal affect, normal judgment/insight, normal mood Results Findings/Data: Laboratory Tests 04/10/23 0615: [Embedded Image Not Available] 04/10/23 0614: [Embedded Image Not Available] Laboratory Tests 04/10 04/10 04/09 04/09 0722 0614 [...] (Auto) (14.0 - 32.0 %) 8.6 L Grainger % (Auto) (4.8 - 9.0 %) 7.7 Eos % (Auto) (0.3 - 3.7 %) 0.7 Baso % (Auto) (0.0 - 2.0 %) 0.9 Neut # (Auto) (2.0 - 7.6 x10 3/uL) 3.58 Lymph # (Auto) (1.0 - 3.8 x10 3/uL) 0.38 L Grainger # (Auto) (0.1 - 0.8 x10 3/uL) [...] (0.0 - 0.1 x10 3/uL) 0.00 Radiology data: Recent Impressions: NUCLEAR MEDICINE - NM LUNG PERF PARTICULATE 04/09 1130 Report Impression - Status: SIGNED Entered: 04/09/2023 1257 IMPRESSION: 1. Intermediate likelihood ratio for pulmonary embolism. Recommend CTA chest with contrast using PE protocol for further evaluation. Normal: < 5% probability of pulmonary embolism. Low likelihood ratio: < 20 % probability of pulmonary embolism. Intermediate likelihood ratio: 20-80% probability of pulmonary embolism. High likelihood ratio: > 80% probability of pulmonary embolism. Impression By: [email or web address] - Manish Son M.D. ULTRASOUND - DUP VEIN SCOTTY 04/09 1659 Report Impression - Status: SIGNED Entered: 04/09/2023 1756 IMPRESSION: No evidence of deep vein thrombosis. Impression By: [email or web address] - Chilo Cabrera M.D. ULTRASOUND - DUP LE ART SCOTTY 04/09 1659 [...] runoffs may be useful, if clinically indicated. Impression By: [email or web address] - Slava Tran M.D. Diagnosis, Assessment Plan Free Text A P: Acute on chronic hypoxemic respiratory failure supplemental O2 as needed and wean as tolerated Pulmonary embolism Initially diagnosed in November 2022 at outside hospital; was on Eliquis from diagnosis through February. CTA chest 03/03/2023 was negative for pulmonary embolism. Patient was discharged home 03/13/2023 and told to discontinue taking Eliquis. -D-dimer 1496. -VQ scan with intermediate probability. 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 Check bilateral lower extremity Dopplers -> neg -Renally dose lovenox @ 1mg/kg once daily -d/w cardio. will ultimately AC with eliquis asa and DC plavix. Continue lovenox for now. COPD No exacerbation. On Combivent and ipratropium nebs at home. -May need repeat pulmonary function test outpatient. 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 1.5 x 0.8 cm nodular opacity in RLL needs follow-up in 3 months CAD / PAD S/p CABG 03/04/2023 Cardiothoracic surgery following Pending echo - will need periph angio when cr improved JERAMY/CKD Nephrology consult Strict I O. Measure UOP. - IVF Follow labs History of prostate cancer S/p radiation in 2021 Christiano Gutierrez 04/10/23 1805: Attestations Physician Attestation Agree w/findings plan: Seen and examined. I agree with the findings and plan as documented by Carlos Canseco PA-C. at 1435 at 1813 RPT #:[id number] END OF REPORT [facility] 2023-04-10 06:34:00 [facility]) Podiatry Progress Note REPORT#:[id number] REPORT STATUS: Signed DATE:04/10/23 TIME: 633 PATIENT: TEVIN NYE UNIT #: [id number] ROOM/BED: [place] [address] : 51 AGE: 73 SEX: M ATTEND: Elvie Gamboa MD ADM AUTHOR: Andres Rachel DPM * ALL edits or amendments must be made on the electronic/computer document * Subjective Patient reports: no constipation, no diarrhea, no dizziness, no fatigue, no headache, no heartburn, no nausea Comments: dressing had fallen off of the foot. pt has pain. only takes tylenol. events notes. states xray done. Review of Systems Constitutional: Reports: generalized weakness, lethargy, malaise. Skin: Reports: abrasion, bruising, contusion. Neuro: Reports: numbness. Denies: seizure. Objective General VS: Last Documented: Result Date Time Pulse Ox 97 04/10 316 B/P 110/71 04/10 316 B/P Mean 84.2 04/10 316 Temp 36.5 04/10 316 Pulse 49 04/10 316 Resp 14 04/10 316 O2 Delivery Nasal cannula 04/09 2230 O2 Flow Rate 3 08/02 2230 PATIENT WEIGHT: Weight (lb): Weight (oz): Weight (kg): 86.200 Medications: Active Meds + DC'd Last 24 Hrs Atorvastatin Calcium (LIPITOR) 40 MG 2100 PO Lactulose (LACTULOSE) 20 GM BID PRN PRN PO Enoxaparin Sodium (lovENOX) 86 MG Q24H SUBQ Miscellaneous Information (LOVENOX PHARMACY TO DOSE) 1 EACH ASDIR SUBQ ( CKD) Sterile Water (WATER FOR IRRIGATION) DRESSING CHANGE ASDIR PRN IRR Sodium Chloride (SODIUM CHLORIDE 0.9%) 1,000 ML .[id number] IV Aspirin (ASPIRIN) 81 MG DAILY PO [...] MG Q4H PRN PRN IV Dietitian nutrition assessment The data set between the solid lines has been imported from the dietitian's assessment. BMI Calculated: 29.8 Nutrition related diagnosis: Nutrition diagnosis details: Nutrition problem: Nutrition etiology: Nutrition signs and symptoms: Nutrition prescription: Dietitian name: Assessment completed: Physical Exam General appearance: alert, awake, oriented, no acute distress, pleasant, conversational Wound/incision: Location: bilat foot Site condition: small pinpoint ulcer right foot. ulcer left forefoot dorsal. partial and full thickness. no erythema. no depth. LE vascular pulse assess: Nonpalpable R posterior tibialis, Nonpalpable L posterior tibialis, Nonpalpable R dorsalis pedis, Nonpalpable L dorsalis pedis Feet Top - Top View (L) [Embedded Image Not Available] 1) Results Findings/Data: Laboratory Tests: 04/09 1257 Chemistry POC Glucose (70 - 110 MG/DL) 281 H 162 H Recent Impressions: NUCLEAR MEDICINE - NM LUNG PERF PARTICULATE 04/09 1130 Report Impression - Status: SIGNED Entered: 04/09/2023 1257 IMPRESSION: 1. Intermediate likelihood ratio for pulmonary embolism. Recommend CTA chest with contrast using PE protocol for further evaluation. Normal: < 5% probability of pulmonary embolism. Low likelihood ratio: < 20 % probability of pulmonary embolism. Intermediate likelihood ratio: 20-80% probability of pulmonary embolism. High likelihood ratio: > 80% probability of pulmonary embolism. Impression By: [email or web address] Og Son M.D. ULTRASOUND - DUP VEIN SCOTTY 04/09 1659 Report Impression - Status: SIGNED Entered: 04/09/2023 1756 IMPRESSION: No evidence of deep vein thrombosis. Impression By: [email or web address] - Chilo Cabrera M.D. ULTRASOUND - DUP LE ART SCOTTY 04/09 1659 [...] runoffs may be useful, if clinically indicated. Impression By: [email or web address] - Slava Tran M.D. Allergies Allergy Severity Reaction Updated Coded Penicillins Unknown USE COMMENT BUTTON 03/03/23 Laboratory Tests 04/09/23 0502: [Embedded Image Not Available] 04/08/23 2030: [Embedded Image Not Available] 04/08/23 1307: [Embedded Image Not Available] Recent Impressions-Last 72 Hrs RADIOLOGY - XR CHEST 2 V 04/08 1445 Report Impression - Status: SIGNED Entered: 04/08/2023 1534 IMPRESSION: Emphysematous changes noted in the right lower lung with prominent peribronchiolar markings noted. Impression By: Amber Valentin M.D. NUCLEAR MEDICINE - NM LUNG PERF PARTICULATE 04/09 1130 Report Impression - Status: SIGNED Entered: 04/09/2023 1257 IMPRESSION: 1. Intermediate likelihood ratio for pulmonary embolism. Recommend CTA chest with contrast using PE protocol for further evaluation. Normal: < 5% probability of pulmonary embolism. Low likelihood ratio: < 20 % probability of pulmonary embolism. Intermediate likelihood ratio: 20-80% probability of pulmonary embolism. High likelihood ratio: > 80% probability of pulmonary embolism. Impression By: [email or web address] Og Son M.D. ULTRASOUND - DUP VEIN SCOTTY 04/09 165 Report Impression - Status: SIGNED Entered: 04/09/2023 1756 IMPRESSION: No evidence of deep vein thrombosis. Impression By: [email or web address] Og Cabrera M.D. ULTRASOUND - DUP LE ART SCOTTY 04/09 165 Report Impression - Status: SIGNED Entered: 04/09/2023 [...] runoffs may be useful, if clinically indicated. Impression By: [email or web address] Og Tran M.D. Diagnosis, Assessment Plan Free Text A P: ulcer left foot. pain PVD ulcer is benign...starting to peel continue local wound care. no xray found. venous u/s neg NIAS: pvd as expected. covering for Dr. Washington at 0639 RPT #:[id number] END OF REPORT [facility] 2023-04-10 06:33:00 [facility] ([facility]) Cardiology Progress Note REPORT#:[id number] REPORT STATUS: Signed DATE:04/10/23 TIME: 06 PATIENT: TEVIN NYE UNIT #: [id number] ROOM/BED: [place] [address] : 51 AGE: 73 SEX: M ATTEND: Elvie Gamboa MD ADM AUTHOR: Daniela Mari * ALL edits or amendments must be made on the electronic/computer document * Subjective Comments: States he feels better. No SOB and has more energy compared to yesterday. Objective General VS/I O: Vital Signs: Date Time Temp Pulse Resp B/P B/P Pulse O2 O2 Flow FiO2 Mean Ox Delivery Rate 04/10 0316 36.5 49 14 110/71 84.2 97 04/09 [...] Weight (lb): Weight (oz): Weight (kg): 86.200 Medications: Active Meds + DC'd Last 24 Hrs Atorvastatin Calcium (LIPITOR) 40 MG 2100 PO Lactulose (LACTULOSE) 20 GM BID PRN PRN PO Enoxaparin Sodium (lovENOX) 86 MG Q24H SUBQ Miscellaneous Information (LOVENOX PHARMACY TO DOSE) 1 EACH ASDIR SUBQ ( CKD) Sterile Water (WATER FOR IRRIGATION) DRESSING CHANGE ASDIR PRN IRR Sodium Chloride (SODIUM CHLORIDE 0.9%) 1,000 ML .[id number] IV Aspirin (ASPIRIN) 81 MG DAILY PO [...] 4 MG Q4H PRN PRN IV Physical Exam General appearance: alert, awake, oriented Neck: non-tender, no JVD Cardiovascular: CV assessment: ectopy, irregular rhythm Respiratory: decreased breath sounds, no distress Abdomen: soft, non-tender, normal bowel sounds, no distention Genitourinary: no flank pain, no urinary catheter Lower extremity: LE assessment: abnormal pedal pulse Musculoskeletal: normal inspection Neuro/STONE BREAKER: alert, oriented X 3, normal speech Skin: dry, intact Ulcer: Type/cause: scab left foot. Psychiatry: normal affect, normal judgment/insight, normal mood Results Findings/Data: Laboratory Tests 04/09 1257 Chemistry POC Glucose (70 - 110 MG/DL) 281 H 162 H Laboratory Tests 04/10/23 0615: [Embedded Image Not Available] 04/10/23 0614: [Embedded Image Not Available] 04/09/23 0502: [Embedded Image Not Available] 04/08/23 2030: [Embedded Image Not Available] 04/08/23 1307: [Embedded Image Not Available] Radiology data: Recent Impressions: NUCLEAR MEDICINE - NM LUNG PERF PARTICULATE 04/09 1130 Report Impression - Status: SIGNED Entered: 04/09/2023 1257 IMPRESSION: 1. Intermediate likelihood ratio for pulmonary embolism. Recommend CTA chest with contrast using PE protocol for further evaluation. Normal: < 5% probability of pulmonary embolism. Low likelihood ratio: < 20 % probability of pulmonary embolism. Intermediate likelihood ratio: 20-80% probability of pulmonary embolism. High likelihood ratio: > 80% probability of pulmonary embolism. Impression By: [email or web address] - Manish Son M.D. ULTRASOUND - DUP VEIN SOCTTY 04/09 1659 Report Impression - Status: SIGNED Entered: 04/09/2023 1756 IMPRESSION: No evidence of deep vein thrombosis. Impression By: [email or web address] - Chilo Cabrera M.D. ULTRASOUND - DUP LE ART SCOTTY 04/09 1659 [...] runoffs may be useful, if clinically indicated. Impression By: [email or web address] Og Tran M.D. Results: labs reviewed, vital signs reviewed, rhythm personally rev'd Telemetry Interpretation: sinus rhythm with frequent triplets PVCs and trigeminal PVCs Echo results: Summary: 1. Left ventricle: The cavity size is normal. Wall thickness is normal. Systolic function is normal. The estimated ejection fraction is 55-59%. 2. Mitral valve: There is mild regurgitation. 3. Tricuspid valve: Estimated right ventricular systollic pressure is 25 mmHg. There is mild regurgitation. 4. Pericardium, extracardiac: A trivial pericardial effusion is identified. Diagnosis, Assessment Plan Plan discussed with: patient, collaborating MD, consultants (puladalid PRITCHARD) Free Text DxA P Notes Free Text DxA P Notes: 73 YO male with MHx of CAD s/p CABG less than 1 month ago, COPD, PE. He presents with generalized weakness and near syncope. Per family [...] d/t PE * Hx of PE, elevated D-dimer * Unable to CTA due to elevated creatinine * pulmonary is also consulted * echocardiogram preserrved LVEF * VQ suggestive of pulmonary embolism 2. CAD s/p CABG * stop Plavix, continue baby ASA plus AC of choice by pulmonology * continue BB and statin 3. JERAMY on CKD 2/2 volume depletion * creatinine trending down 3->2.9->2.4, (creat 1.6 when he was discharge 2 weeks ago) * hold lisinopril * nephrology following * continue IVF 4. Left foot ulcer/abnormal arterial doppler * possible peripheral angiogram when kidney function stabilize * podiatry following 5. Hx of COPD * pulmonary following 6. Acute Pulmonary embolism - recurrent * AC per pulmonology * LE venous doppler no DVT 7. PVCs * Stop amlodipine as BP is soft * will go up on metoprolol to suppress frequent PVCs Stable CV status. mobilize OOB. PT/OT. MDM by Dr. Haynes. at 1133 at 1653 RPT #:[id number] END OF REPORT [facility] 2023-04-09 23:51:00 [facility] Hospitalist Progress Note REPORT#:[id number] REPORT STATUS: Signed DATE:04/09/23 TIME: 2351 PATIENT: TEVIN NYE UNIT #: [id number] ROOM/BED: [place] [address] : 51 AGE: 73 SEX: M ATTEND: Elvie Gamboa MD ADM AUTHOR: Elvie Gamboa MD * ALL edits or amendments must be made on the electronic/computer document * Subjective Chief complaint: feeling better. back to home oxygen HPI: Patient is a 73-year-old male with past medical history of CAD s/p CABG by Dr. Beyer 03/03/2028, pulmonary embolism in November 2022, prostate cancer s/p radiation 2021, former smoker with COPD on home oxygen. Patient presenting for shortness of breath. no fevers, chills or sweats. no other comPatient is a 73- year-old male with past medical history of CAD s/p CABG by Dr. Beyer 03/03/2028 , pulmonary embolism in November 2022, prostate cancer s/p radiation 2021, former smoker with COPD on home oxygen. Patient presenting for shortness of breath. Labs and imaging obtained have been personally reviewed. Objective General VS/I O: Vital Signs: Date Time Temp Pulse Resp [...] Weight (lb): Weight (oz): Weight (kg): 86.200 Medications: Active Meds + DC'd Last 24 Hrs Atorvastatin Calcium (LIPITOR) 40 MG 2100 PO Lactulose (LACTULOSE) 20 GM BID PRN PRN PO Enoxaparin Sodium (lovENOX) 86 MG Q24H SUBQ Miscellaneous Information (LOVENOX PHARMACY TO DOSE) 1 EACH ASDIR SUBQ ( CKD) Sterile Water (WATER FOR IRRIGATION) DRESSING CHANGE ASDIR PRN IRR Sodium Chloride (SODIUM CHLORIDE 0.9%) 1,000 ML .[id number] IV Aspirin (ASPIRIN) 81 MG DAILY PO [...] 2GM/SWFI 50ML) 50 ML ONCE ONE IV ( DC) Acetaminophen (TYLENOL) 650 MG Q4H PRN PRN PO Hydrocodone Bitart/Acetaminophen (NORCO 5/325) 1 TAB Q4H PRN PRN PO Morphine Sulfate (morphine SULFATE) 4 MG Q4H PRN PRN IV Ondansetron HCl (ZOFRAN) 4 MG Q4H PRN PRN IV Physical Exam General appearance: no acute distress Head/Eyes: atraumatic, clear cornea, EOMI Neck: supple/no meningismus Cardiovascular: normal heart sounds, regular rate rhythm, no gallop, no murmur , no rub Respiratory: aerating well, clear to auscultation, symmetric expansion Abdomen: non-tender, normal bowel sounds, soft, no distention Extremities: no clubbing, no cyanosis, no edema Musculoskeletal: normal inspection, painless range of motion Neuro/STONE BREAKER: alert, oriented X 3, CNII-XII intact Skin: dry, intact Results Findings/Data: Laboratory Tests 04/09 04/09 04/09 04/09 04/09 1903 [...] (Auto) (14.0 - 32.0 %) 7.1 L Grainger % (Auto) (4.8 - 9.0 %) 6.5 Eos % (Auto) (0.3 - 3.7 %) 1.5 Baso % (Auto) (0.0 - 2.0 %) 0.6 Neut # (Auto) (2.0 - 7.6 x10 3/uL) 3.96 Lymph # (Auto) (1.0 - 3.8 x10 3/uL) 0.34 L Grainger # (Auto) (0.1 - 0.8 x10 3/uL) [...] (0.0 - 0.1 x10 3/uL) 0.00 Radiology data: Recent Impressions: NUCLEAR MEDICINE - NM LUNG PERF PARTICULATE 04/09 1130 Report Impression - Status: SIGNED Entered: 04/09/2023 1257 IMPRESSION: 1. Intermediate likelihood ratio for pulmonary embolism. Recommend CTA chest with contrast using PE protocol for further evaluation. Normal: < 5% probability of pulmonary embolism. Low likelihood ratio: < 20 % probability of pulmonary embolism. Intermediate likelihood ratio: 20-80% probability of pulmonary embolism. High likelihood ratio: > 80% probability of pulmonary embolism. Impression By: [email or web address] - Manish Son M.D. ULTRASOUND - DUP VEIN SCOTTY 04/09 1659 Report Impression - Status: SIGNED Entered: 04/09/2023 1756 IMPRESSION: No evidence of deep vein thrombosis. Impression By: [email or web address] Og Cabrera M.D. ULTRASOUND - DUP LE ART SCOTTY 04/09 1659 [...] runoffs may be useful, if clinically indicated. Impression By: [email or web address] - Slava Tran M.D. Diagnosis, Assessment Plan Free Text DxA P Notes Free text DxA P notes: SOB cardiology and pulmonary seen on 2 liters of oxygen per n/c echo ordered elevated D-dimer V-Q scan with intermediate probability-defer to pulmonary JERAMY with CKD renal seen on IVF COPD on home oxygen h/o CAD s/p CABG X4 on 03/04/2023 CTS consulted and seen DM accuchecks and SSI prn check A1C BG controlled HTN bp controlled resumed home meds HLD on statin stable Prostate cancer s/p XRT follow labs at 1051 RPT #:[id number] END OF REPORT [facility] 2023-04-09 18:10:00 [facility] ([facility]) Nephrology Consultation Note REPORT#:[id number] REPORT STATUS: Signed DATE:04/09/23 TIME: 1809 PATIENT: TEVIN NYE UNIT #: [id number] ROOM/BED: [place] [id number] : 51 AGE: 73 SEX: M ATTEND: Elvie Gamboa MD ADM AUTHOR: Monserrat Bobo MD * ALL edits or amendments must be made on the electronic/computer document * See Addendum History of Present Illness Requesting clinician: Dr Gamboa Reason for consult: ARF Chief complaint: Shortness of breath PCP: PCP: Samuel Mcguire MD HPI: Patient is 73 years old man with past medical history of coronary artery disease , s/p CABG, pulmonary embolism, prostate cancer s/p radiation, former smoker, COPD presented to emergency department with shortness of breath. Patient has family member in the room who states that patient has been swollen mostly and he has been noticing that for the last few days he has not been swollen. Patient denies having any nausea vomiting diarrhea. He felt very lightheaded and almost fainted before coming to hospital. Nephrology was consulted for acute renal failure. Patient states he had kidney disease dating back in 2019, when he had a fall from the ladder and when he went to ER he was told to have kidney [...] Lasix 20 mg p.o. twice daily, patient is also on lisinopril and recently on 03/27/2023 he was started on Bactrim. Hx Obtained From Patient History - Adult longitudinal Past medical history: Reports: COPD, Diabetes mellitus, Hypertension, BPH, Dyslipidemia. Past surgical history: Reports: Knee procedure, Lung surgery (collapsed lung). Additional surgical history: CABG Additional family history: UTO Alcohol use: Denies EtOH use Drug use: Denies recreational drugs Smoking status for patients 13 years old or older: Former Smoker Additional social history: LIVES AT HOME ALONE. HIS YOUNGER BROTHER LIVES ACROSS THE STREET. SSH. NO STAIRS. HE WAS IND PLOF. NO DME USED . OCCASSIONAL CANE USED. NO OXYGEN Medications: Home Medications: Medication Dose/Rte/Freq Days Qty Entered Last Max Daily Dose Reviewed OXYBUTYNIN (DITROPAN) 5 MG PO BID 03/03/23 04/08/23 Strength: 5 MG TAB 1937 1837 FLUoxetine (PROzac) 10 MG PO QAM 03/03/23 04/08/23 Strength: 10 MG CAP 1938 1842 LATANOPROST 1 DROP EACH EYE 03/03/23 04/08/23 (XALATAN 0.005% OPHTH BEDTIME 1939 1843 SOLN) Strength: 0.005 % OPHTH.SOLN INSULIN LISPRO 6 03/03/23 04/08/23 (HumaLOG KWIKPEN (3mL)) 1942 1844 Strength: 100 UNIT/ML INSULN.PEN CALCIUM CARBONATE/VIT 2 TAB PO DAILY 03/03/23 04/08/23 D3 1944 1836 (CALCIUM CARB/VIT D3 500 MG/200 UNITS) Strength: 500 MG CALCIUM-5 MCG (200 UNIT) TAB CYANOCOBALAMIN 100 MCG PO DAILY 03/03/23 04/08/23 (VITAMIN B-12) 1944 1843 Strength: 100 MCG TAB TAMSULOSIN ER (FLOMAX) 0.8 MG PO BEDTIME 2 03/03/23 04/08/23 Strength: 0.4 MG 1938 1838 CAP.SR.24H INSULIN LISPRO (HumaLOG) 30 03/03/23 04/08/23 Strength: 100 UNIT/ML 1943 1844 VIAL FUROSEMIDE (LASIX) 20 MG PO BID 04/08/23 04/08/23 Strength: 20 MG TAB 1840 1840 BRIMONIDINE 1 DROP EACH EYE BID 04/08/23 04/08/23 (ALPHAGAN 0.2% OPHTH 1845 1848 SOLN) Strength: 0.2 % OPHTH.SOLN SULFAMETHOXAZOLE/TMP 1 TAB PO BID 04/08/23 04/08/23 (BACTRIM DS 800/160 MG) 1847 1848 Strength: 800 MG-160 MG TAB HYDROCHLOROTHIAZIDE 25 MG PO DAILY 04/08/23 04/08/23 (HYDRODIURIL) 1847 1848 Strength: 25 MG TAB LISINOPRIL (ZESTRIL) 20 MG PO DAILY 04/08/23 04/08/23 Strength: 20 MG TAB 1848 1848 ATORVASTATIN (LIPITOR) 40 MG PO 2100 30 30 03/13/23 04/08/23 Strength: 40 MG TAB 144 184 METOPROLOL TARTRATE 25 MG PO Q12HR 30 60 03/13/23 04/08/23 (LOPRESSOR) 1446 1842 Strength: 25 MG TAB amLODIPine (NORVASC) 10 MG PO DAILY 30 30 03/13/23 04/08/23 Strength: 10 MG TAB 1446 1842 ASPIRIN 81 MG PO DAILY 30 30 03/13/23 04/08/23 Strength: 81 MG TAB.CHEW 1445 1836 Current Hospital Medications: Autonomic Drugs Sig/Yas Start time Last Medication [...] 2100 04/09 2100 AC (LIPITOR) PO 05/09 205 Amlodipine Besylate 10 MG DAILY 04/09 09 AC (NORVASC) PO 05/09 0859 Metoprolol Tartrate 25 MG Q12HR 04/08 2300 AC 04/08 (LOPRESSOR) PO 05/08 2259 2308 Central Nervous System Agents Sig/Yas Start time Last Medication Dose Route Stop Time Status Admin Aspirin 81 MG DAILY 04/09 1015 AC 04/09 (ASPIRIN) PO 05/09 1014 1250 Fluoxetine HCl 10 MG QAM 04/09 09 AC 04/09 (PROzac) PO 05/09 0859 0915 Magnesium Sulfate 50 ML ONCE ONE 04/08 2245 DC 04/08 (MAGNESIUM SULFATE IV 04/09 0044 2307 2GM/SWFI 50ML) Acetaminophen 650 MG Q4H PRN PRN 04/08 1800 AC (TYLENOL) PO 05/08 1759 Hydrocodone Bitart/ 1 TAB Q4H PRN PRN 04/08 1800 AC Acetaminophen PO 04/13 1759 (NORCO 5/325) Morphine Sulfate 4 MG Q4H PRN PRN 04/08 1800 AC (morphine SULFATE) IV 04/13 1759 [...] 04/16 1529 (LOVENOX PHARMACY TO DOSE) Dose Instructions: (1)Sterile Water (WATER FOR IRRIGATION): DRESSING CHANGE Allergies: Coded Allergies: Penicillins (USE COMMENT BUTTON 03/03/23) PT STATES THAT HE WAS JUST TOLD THAT HE'S ALLERGIC TO PENICILLIN AND ITS NOT GONNA WORK FOR HIM Diagnosis, Assessment Plan Free Text DxA P Notes Free text DxA P notes: Assessment/plan: 1. Acute renal failure most likely secondary to volume depletion, overdiuresis and ATN/AIN with Bactrim and lisinopril on board, stop nephrotoxic medications, hold RAJ inhibitors, start normal saline hydration, renal sono requested, urine eosinophils, urine studies CKD baseline creatinine 1.6 back in March 2023 2. Coronary artery disease: Status post CABG, continue home medications 3. COPD: Symptomatic treatment 4. History of prostate cancer, s/p radiation 2021 Thank you very much for involving me in taking care of this patient, will follow closely. Covering for Dr. Paz at 1820 Addendum 1: 04/10/23 1426 by Monserrat Bobo MD Physical Exam General appearance: alert, awake, oriented Head/eyes: atraumatic, normocephalic ENT: moist mucous membranes Neck: supple/no meningismus, no JVD Cardiovascular: normal heart sounds, no rub Respiratory: aerating well, clear to auscultation Genitourinary: no bladder distention Extremities: no edema Neuro/STONE BREAKER: alert, oriented X 3 Ulcer: Type/cause: scab left foot. at 1427 RPT #:[id number] END OF REPORT [facility] 2023-04-09 12:16:00 [facility] ([facility] Pulmonary Consultation Note REPORT#:[id number] REPORT STATUS: Signed DATE:04/09/23 TIME: 1216 PATIENT: TEVIN NYE UNIT #: [id number] ROOM/BED: [place] [address] : 51 AGE: 73 SEX: M ATTEND: Elvie Gamboa MD ADM AUTHOR: Rose Canseco PA * ALL edits or amendments must be made on the electronic/computer document * Rose Canseco 04/09/23 1216: History of Present Illness HPI HPI: Patient is a 73-year-old male with past medical history of CAD s/p CABG by Dr. Beyer 03/03/2028, pulmonary embolism in November 2022, prostate [...] ox at home and recently he will have desaturations into the low 80s with exertion. Patient having dyspnea on exertion ambulating from bed to bathroom which is just a few feet away. Patient had near syncopal episode due to severe shortness of breath and patient's brother called ambulance for transport to hospital. Patient and brother report on EMS arrival patient noted to have an irregular heart rhythm and rate. EKG done in hospital showing normal sinus rhythm. Patient denies chest pain, nausea , vomiting, increased edema, cough, orthopnea, paroxysmal nocturnal dyspnea. Past medical history: CAD s/p CABG 2022 Pulmonary embolism 2022 COPD Prostate cancer s/p radiation 2021 Hypertension Hyperlipidemia Diabetes Knee surgery Carotid artery stenosis CKD Former smoker Review of systems: General: No current fevers or chills. Eyes: No recent visual change, redness, discharge. ENT: No recent hearing loss, nasal congestion, sinus problems, or sore throat. Respiratory: See HPI. Cardiovascular: No chest pain or leg edema. Gastrointestinal: No nausea vomiting or diarrhea. Genitourinary: No dysuria, urgency, or hematuria. Musculoskeletal: No arthralgias, myalgias, joint pain or swelling. Neurologic: No seizures, syncope, or focal weakness. Psychiatric: No anxiety, agitation, depression, or confusion. Skin: No rash, swelling, bruising. Physical examination: General: Awake, Alert, NAD. HEENT: NC/AT, PERRL, EOMI, No JVD, Trachea Midline. Respiratory: Diminished Breath Sounds. Symmetric to expansion. No distress. Cardiac: RRR, without murmur, rub, or gallop. Abdomen: Soft. + bowel sounds. No HSM or masses. Extremities :No Edema. No cyanosis, clubbing. Lymphatic: No palpable lymphadenopathy. Neurologic: Cranial nerves II through XII are grossly intact. Musculoskeletal: No deformity is apparent. Normal muscle bulk and tone. History - Adult longitudinal Past medical history: Reports: COPD, Diabetes mellitus, Hypertension, BPH, Dyslipidemia. Past surgical history: Reports: Knee procedure, Lung surgery (collapsed lung). Additional family history: UTO Alcohol use: Denies EtOH use Drug use: Denies recreational drugs Smoking status for patients 13 years old or older: Former Smoker Additional social history: LIVES AT HOME ALONE. HIS YOUNGER BROTHER LIVES ACROSS THE STREET. SSH. NO STAIRS. HE WAS IND PLOF. NO DME USED . OCCASSIONAL CANE USED. NO OXYGEN Allergies: Coded Allergies: Penicillins (USE COMMENT BUTTON 03/03/23) PT STATES THAT HE WAS JUST TOLD THAT HE'S ALLERGIC TO PENICILLIN AND ITS NOT GONNA WORK FOR HIM Objective Physical Exam Vitals: Last Documented: Result Date Time Pulse Ox 97 04/09 1150 B/P 99/54 04/09 1150 B/P Mean 69.0 04/09 1150 O2 Delivery Nasal cannula 04/09 115 Temp 98.1 04/09 1150 Pulse 65 04/09 1150 Resp 16 04/09 1150 O2 Flow Rate 3 04/08 2354 Results Findings/Data: Laboratory Tests 04/09/23 0502: [Embedded Image Not Available] 04/08/23 2030: [Embedded Image Not Available] 04/08/23 1307: [Embedded Image Not Available] Laboratory Tests 04/09 04/09 04/09 04/08 04/08 0502 0502 0453 2316 2029 Chemistry Sodium (134 - 147 mEq/L) 141 141 [...] - 32.0 %) 7.1 L 7.5 L Grainger % (Auto) (4.8 - 9.0 %) 6.5 5.6 Eos % (Auto) (0.3 - 3.7 %) 1.5 0.7 Baso % (Auto) (0.0 - 2.0 %) 0.6 0.7 Neut # (Auto) (2.0 - 7.6 x10 3/uL) 3.96 4.78 Lymph # (Auto) (1.0 - 3.8 x10 3/uL) 0.34 L 0.43 L Grainger # (Auto) (0.1 - 0.8 x10 3/uL) [...] pH (5.0 - 7.0) 5.0 Ur Specific [place] (1.005 - 1.030) 1.006 Urine Protein (NEGATIVE) [...] Urine Mucus (NONE SEEN /LPF) TRACE Radiology Data: Recent Impressions: RADIOLOGY - XR CHEST 2 V 04/08 1445 Report Impression - Status: SIGNED Entered: 04/08/2023 1534 IMPRESSION: Emphysematous changes noted in the right lower lung with prominent peribronchiolar markings noted. Impression By: Amber Valentin M.D. Diagnosis, Assessment Plan Free Text DxA P Notes Free Text DxA P Notes: Acute on chronic hypoxemic respiratory failure supplemental O2 as needed and wean as tolerated Pulmonary embolism Initially diagnosed in November 2022 at outside hospital; was on Eliquis from diagnosis through February. CTA chest 03/03/2023 was negative for pulmonary embolism. Patient was discharged home 03/13/2023 and told to discontinue taking Eliquis. -D-dimer 1496. -VQ scan with intermediate probability. 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 Check bilateral lower extremity Dopplers -Renally dose lovenox @ 1mg/kg once daily -Will likely need to be on lifelong AC COPD No exacerbation. On Combivent and ipratropium nebs at home. -May need repeat pulmonary function test outpatient. 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 1.5 x 0.8 cm nodular opacity in RLL needs follow-up in 3 months Coronary artery disease S/p CABG 03/04/2023 Cardiothoracic surgery following Pending echo JERAMY/CKD Nephrology consult Strict I O. Measure UOP. Follow labs History of prostate cancer S/p radiation in 2021 Thank you for the consult. Christiano Gutierrez 04/09/23 2224: Attestations Physician Attestation Agree w/findings plan: Seen and examined. I agree with the findings and plan as documented by Carlos Canseco PA-C. Discussed in depth with Carlos Canseco PA-C. at 1531 at 2230 RPT #:[id number] END OF REPORT [facility] 2023-04-09 11:56:00 [facility] ([facility] Podiatry Consult Note REPORT#:[id number] REPORT STATUS: Signed DATE:04/09/23 TIME: 1156 PATIENT: TEVIN NYE UNIT #: [id number] ROOM/BED: [place] [id number] : 51 AGE: 73 SEX: M ATTEND: Rojelio Magaña MD ADM AUTHOR: Reyna Washington DPEzra * ALL edits or amendments must be made on the electronic/computer document * History - Adult longitudinal Past medical history: Reports: COPD, Diabetes mellitus, Hypertension, BPH, Dyslipidemia. Past surgical history: Reports: Knee procedure, Lung surgery (collapsed lung). Additional family history: UTO Alcohol use: Denies EtOH use Drug use: Denies recreational drugs Smoking status for patients 13 years old or older: Former Smoker Additional social history: LIVES AT HOME ALONE. HIS YOUNGER BROTHER LIVES ACROSS THE STREET. SSH. NO STAIRS. HE WAS IND PLOF. NO DME USED . OCCASSIONAL CANE USED. NO OXYGEN Allergies: Coded Allergies: Penicillins (USE COMMENT BUTTON 03/03/23) PT STATES THAT HE WAS JUST TOLD THAT HE'S ALLERGIC TO PENICILLIN AND ITS NOT GONNA WORK FOR HIM Objective General VS: Last Documented: Result Date Time Pulse Ox 97 04/09 1150 B/P 99/54 04/09 1150 B/P Mean 69.0 04/09 1150 O2 Delivery Nasal cannula 04/09 1150 Temp 36.7 04/09 1150 Pulse 65 04/09 1150 Resp 16 04/09 1150 O2 Flow Rate 3 04/08 2354 PATIENT WEIGHT: Weight (lb): Weight (oz): Weight (kg): 86.200 Medications: Active Meds + DC'd Last 24 Hrs Atorvastatin Calcium (LIPITOR) 40 MG 2100 PO [...] 2GM/SWFI 50ML) 50 ML ONCE ONE IV ( DC) Acetaminophen (TYLENOL) 650 MG Q4H PRN PRN PO Hydrocodone Bitart/Acetaminophen (NORCO 5/325) 1 TAB Q4H PRN PRN PO Morphine Sulfate (morphine SULFATE) 4 MG Q4H PRN PRN IV Ondansetron HCl (ZOFRAN) 4 MG Q4H PRN PRN IV I O: 24 hour I O ending at 0700: /02 0700 04/08 1900 Intake Total 750.00 Output Total 1100 Balance -350.00 Intake, IV 50.00 Intake, Oral 700 Number 0 Bowel Movements Number Voids 1 Output, Urine 1100 Patient 86.2 kg Weight Weight Bed scale Measurement Method Dietitian nutrition assessment The data set between the solid lines has been imported from the dietitian's assessment. BMI Calculated: 29.8 Nutrition related diagnosis: Nutrition diagnosis details: Nutrition problem: Nutrition etiology: Nutrition signs and symptoms: Nutrition prescription: Dietitian name: Assessment completed: Results Findings/Data: Laboratory Tests: 04/09 04/09 04/08 04/08 04/08 0502 0453 2316 2030 2025 Chemistry Sodium (134 - 147 mEq/L) 141 141 [...] Magnesium (1.80 - 2.40 mg/dL) 1.66 L Hematology WBC (4.5 - 11.0 x10 [...] (Auto) (14.0 - 32.0 %) 7.1 L Grainger % (Auto) (4.8 - 9.0 %) 6.5 Eos % (Auto) (0.3 - 3.7 %) 1.5 Baso % (Auto) (0.0 - 2.0 %) 0.6 Neut # (Auto) (2.0 - 7.6 x10 3/uL) 3.96 Lymph # (Auto) (1.0 - 3.8 x10 3/uL) 0.34 L Grainger # (Auto) (0.1 - 0.8 x10 3/uL) 0.31 Eos # (Auto) (0.0 - 0.2 x10 3/uL) 0.07 Baso # (Auto) (0.0 - 0.2 x10 3/uL) 0.03 Abs Immat Gran (auto) (0.00 - 0.03 0.09 H x10 3/uL) Add Manual Diff NO Immature Gran % (0.0 - 2.0 %) 1.9 Nucleated RBC % (0 - 0 %) 0.0 Nucleated RBCs # (Man) (0.0 - 0.1 0.00 x10 3/uL) 04/08 1510 1307 1307 Chemistry Sodium (134 [...] (Auto) (14.0 - 32.0 %) 7.5 L Grainger % (Auto) (4.8 - 9.0 %) 5.6 Eos % (Auto) (0.3 - 3.7 %) 0.7 Baso % (Auto) (0.0 - 2.0 %) 0.7 Neut # (Auto) (2.0 - 7.6 x10 3/uL) 4.78 Lymph # (Auto) (1.0 - 3.8 x10 3/uL) 0.43 L Grainger # (Auto) (0.1 - 0.8 x10 3/uL) 0.32 Eos # (Auto) (0.0 - 0.2 x10 3/uL) 0.04 Baso # (Auto) (0.0 - 0.2 x10 3/uL) 0.04 Abs Immat Gran (auto) (0.00 - 0.03 0.09 H x10 3/uL) Add Manual Diff NO Immature Gran % (0.0 - 2.0 %) 1.6 Nucleated RBC % (0 - 0 %) 0.0 Nucleated RBCs # (Man) (0.0 - 0.1 0.00 x10 3/uL) Urines Urine Color (YEL/STRAW) STRAW Urine Appearance (CLEAR) CLEAR Urine pH (5.0 - 7.0) 5.0 Ur Specific [place] (1.005 - 1.030) 1.006 Urine Protein (NEGATIVE) [...] Urine Mucus (NONE SEEN /LPF) TRACE Recent Impressions: RADIOLOGY - XR CHEST 2 V 04/08 1445 Report Impression - Status: SIGNED Entered: 04/08/2023 1534 IMPRESSION: Emphysematous changes noted in the right lower lung with prominent peribronchiolar markings noted. Impression By: Amber Valentin M.D. Results: labs reviewed at 1034 RPT #:[id number] END OF REPORT [facility] 2023-04-09 10:02:00 [facility] ([facility] Cardiology Consultation REPORT#:[id number] REPORT STATUS: Signed DATE:04/09/23 TIME: 1002 PATIENT: TEVIN NYE UNIT #: [id number] ROOM/BED: [place] [address] : 51 AGE: 73 SEX: M ATTEND: Elvie Gamboa MD ADM AUTHOR: Daniela Mari * ALL edits or amendments must be made on the electronic/computer document * See Addendum History of Present Illness HPI Requesting Clinician: Dr. Beyer/Evon PRITCHARD Reason for consult: SOB Chief complaint: Weakness, diaphoresis, presyncope PCP: PCP: Samuel Mcguire MD HPI: 73 YO male with MHx of CAD s/p CABG less than 1 month ago, COPD, PE. He presents with generalized weakness and near syncope. Per family [...] 1. Dyspnea and presyncope - rule out PE * Hx of PE, elevated D-dimer * Unable to CTA due to elevated creatinine, will do VQ scan to rule out PE * pulmonary is also consulted * echocardiogram 2. CAD s/p CABG * start back on Plavix and ASA * continue BB if BP allows it * continue statin 3. JERAMY on CKD * appear volume depleted on exam * creatinine 3 down to 2.9, it was 1.6 when he was discharge 2 weeks ago * hold lisinopril * nephrology consultation * start IVF NS 50 ml/hr 4. Right foot ulcer/abnormal pedal pulses * arterial and venous doppler to R/O DVT and occlusive PAD * podiatry consultation 5. Hx of COPD * pulmonary consulted * pulmonary consultation Appreciate the referral. MDM by Dr. Haynes. History - Adult longitudinal Past medical history: Reports: COPD, Diabetes mellitus, Hypertension, BPH, Dyslipidemia. Past surgical history: Reports: Knee procedure, Lung surgery (collapsed lung). Additional family history: UTO Alcohol use: Denies EtOH use Drug use: Denies recreational drugs Smoking status for patients 13 years old or older: Former Smoker Additional social history: LIVES AT HOME ALONE. HIS YOUNGER BROTHER LIVES ACROSS THE STRE[address]. SSH. NO STAIRS. HE WAS IND PLOF. NO DME USED . OCCASSIONAL CANE USED. NO OXYGEN Allergies: Coded Allergies: Penicillins (USE COMMENT BUTTON 03/03/23) PT STATES THAT HE WAS JUST TOLD THAT HE'S ALLERGIC TO PENICILLIN AND ITS NOT GONNA WORK FOR HIM Objective General VS/I O: Vital Signs: Date Time Temp Pulse Resp [...] Weight (lb): Weight (oz): Weight (kg): 86.200 Medications: Active Meds + DC'd Last 24 Hrs Atorvastatin Calcium (LIPITOR) 40 MG 2100 PO Amlodipine Besylate (NORVASC) 10 MG DAILY PO Fluoxetine HCl (PROzac) 10 MG QAM PO Insulin Human Lispro (HUMALOG) 0 AC HS SUBQ Albuterol/Ipratropium (DUONEB) 3 ML RTQ4H NEB Metoprolol Tartrate (LOPRESSOR) 25 MG Q12HR PO Tamsulosin HCl (Flomax 0.4 mg) 0.8 MG BEDTIME PO Magnesium Sulfate (MAGNESIUM SULFATE 2GM/SWFI 50ML) 50 ML ONCE ONE IV ( DC) Acetaminophen (TYLENOL) 650 MG Q4H PRN PRN PO Hydrocodone Bitart/Acetaminophen (NORCO 5/325) 1 TAB Q4H PRN PRN PO Morphine Sulfate (morphine SULFATE) 4 MG Q4H PRN PRN IV Ondansetron HCl (ZOFRAN) 4 MG Q4H PRN PRN IV Results Findings/Data: Laboratory Tests 04/09 04/09 04/08 04/08 04/08 0502 0453 2316 2030 2025 Chemistry Sodium (134 - 147 mEq/L) 141 141 [...] - 32.0 %) 7.1 L 7.5 L Grainger % (Auto) (4.8 - 9.0 %) 6.5 5.6 Eos % (Auto) (0.3 - 3.7 %) 1.5 0.7 Baso % (Auto) (0.0 - 2.0 %) 0.6 0.7 Neut # (Auto) (2.0 - 7.6 x10 3/uL) 3.96 4.78 Lymph # (Auto) (1.0 - 3.8 x10 3/uL) 0.34 L 0.43 L Grainger # (Auto) (0.1 - 0.8 x10 3/uL) [...] pH (5.0 - 7.0) 5.0 Ur Specific [place] (1.005 - 1.030) 1.006 Urine Protein (NEGATIVE) [...] (0 - 100 PG/ML) 396.0 H Radiology Data: Recent Impressions: RADIOLOGY - XR CHEST 2 V 04/08 1445 Report Impression - Status: SIGNED Entered: 04/08/2023 1534 IMPRESSION: Emphysematous changes noted in the right lower lung with prominent peribronchiolar markings noted. Impression By: Amber Valentin M.D. at 1322 at 1653 Addendum 1: 04/10/23 1759 by Daniela Mari Correction, patient has left foot ulcer, not right foot ulcer. at 1800 RPT #:[id number] END OF REPORT [facility] 2023-04-09 05:32:00 [facility] Cardiothoracic Surgery Prog REPORT#:[id number] REPORT STATUS: Signed DATE:04/09/23 TIME: 05 PATIENT: TEVIN NYE UNIT #: [id number] ROOM/BED: [place] [address] : 51 AGE: 73 SEX: M ATTEND: Elvie Gamboa MD ADM AUTHOR: Evon Andrew Physic * ALL edits or amendments must be made on the electronic/computer document * General Status post: 03/04/2023 CABG x 4 (MCCORMICK-LAD,SVG-Leana, SVG-OM, SVG-PDA Subjective Chief complaint: Resting comfortable. Review of Systems Constitutional: Denies: fever, generalized weakness. Respiratory: Reports: SOB. Cardiovascular: Reports: [place] (dyspnea on exertion). Denies: chest pain, edema. GI: Denies: constipation, diarrhea. Musculoskeletal: Denies: joint pain, joint swelling. Heme: Denies: bleeding, bruising. Endocrine: Denies: polydipsia, polyuria. Neuro: Denies: dizziness. Psych: Denies: agitation, anxiety. Objective General VS/I O Last Documented: Result Date Time Pulse Ox 97 04/09 033 B/P 103/58 04/09 033 B/P Mean 73.1 04/09 033 Temp 98.1 04/09 033 Pulse 65 04/09 0330 Resp 18 04/09 330 O2 Delivery Nasal cannula 04/08 2354 O2 Flow Rate 3 04/08 2354 24 hour I O ending at 0700: 04/09 0700 04/08 1900 Intake Total 250 Output Total 500 Balance -250 Intake, Oral 250 Number Voids 1 Output, Urine 500 Patient 86.2 kg Weight Weight Bed scale Measurement Method PATIENT WEIGHT: Weight (lb): Weight (oz): Weight (kg): 86.200 Physical Exam General appearance: alert, awake, oriented HEENT: mucosal membranes moist Cardiovascular: regular rate rhythm Respiratory: aerating well, clear to auscultation Abdomen: soft, non-tender Extremities: dry, moves all Musculoskeletal: full range of motion Neuro/STONE BREAKER: alert, oriented X 3 Skin: dry, intact Diagnosis, Assessment Plan Hospital course to date: This is a 73-year-old gentleman with past medical history of coronary artery disease status post coronary artery bypass graft surgery on 03/04/2023 CABG x 4 (MCCORMICK-LAD,SVG-Leana, SVG-OM, SVG-PDA) Patient was DC'd home on 03/13/2023. He was DC'd home on home oxygen for findings consistent with COPD. The patient reports over the past few weeks he has experienced increased shortness of breath with exertion. The patient denies any lower extremity edema and in fact reports his lower extremity edema has slightly improved since his hospital stay. The patient presented to hospital on [facility] for evaluation of shortness of breath. During his hospitalization for coronary bypass graft surgery the patient's creatinine wero to 3 and came down to baseline of 1.6. His admission creatinine today 2.9 The patient denies any chest pains, denies any palpitations. Assessment/plan 1. Coronary artery disease Status post coronary bypass graft surgery 03/04/2023 2. CKD Consult renal 3. COPD 4. Shortness of breath Sternal wound is clean and dry. There is no signs of infection. Sternum is stable. Left leg wound graft site also clean and dry no signs of infection We will obtain echocardiogram, cardiac consultation and renal consultation. Continue daily labs Daily chest x-ray We will continue to follow 04/09/23 Patient resting comfortable ON 2 L NC Labs reviewed Elevated Creatine. Nephrology consulted. Awaiting echo- Cardiology consulted. COPD, will consult pulmonary Patient was seen and examined by Dr. Beyer. Continue supportive care at 0721 at 1005 [facility] #:[id number] END OF REPORT [facility] 2023-04-08 20:36:00 [id number] [address] PATIENT NAME: TEVIN NYE ADMIT DATE: 04/08/23 ACCOUNT NO: [id number] ROOM NO: 5517 AGE: 73 REPORT TYPE: eELECTROCARDIOGRAM REPORT SEX: M ADMITTING PHYSICIAN:Elvie Gamboa MD ATTENDING PHYSICIAN:Elvie Gamboa MD Order: [id number] Test Reason : RAPID Test Date/Time Stamp: FriApr 08 2023 20:36:36 Blood Pressure : / mmHG Vent. Rate : 086 BPM Atrial Rate : 086 BPM P-R Int : 154 ms QRS Dur : 090 ms QT Int : 396 ms P-R-T Axes : 065 -65 085 degrees QTc Int : 473 ms Sinus rhythm with frequent premature ventricular complexes Left axis deviation Septal infarct , age undetermined Abnormal ECG When compared with ECG of 06-MAR-2023 01:03, No changes Confirmed by MD SYLVESTER GERARD ([id number]) on 04/09/2023 7:03:25 AM Referred By: Self Referred Confirmed by:ANUJ SYLVESTER MD at 0703 PATIENT NAME: TEVIN NYE [facility] 2023-04-08 17:55:00 [facility] ([facility] Hospitalist History Physical REPORT#:[id number] REPORT STATUS: Signed DATE:04/08/23 TIME: 1755 PATIENT: TEVIN NYE UNIT #: [id number] ROOM/BED: 5517-1 : 51 AGE: 73 SEX: M ATTEND: Elvie Gamboa MD ADM AUTHOR: Elvie Gamboa MD * ALL edits or amendments must be made on the electronic/computer document * History of Present Illness HPI Chief complaint: SOB PCP: PCP: Samuel Mcguire MD HPI: Patient is a 73-year-old male with past medical history of CAD s/p CABG by Dr. Beyer 03/03/2028, pulmonary embolism in November 2022, prostate cancer s/p radiation 2021, former smoker with COPD on home oxygen. Patient presenting for shortness of breath. no fevers, chills or sweats. no other comPatient is a 73- year-old male with past medical history of CAD s/p CABG by Dr. Beyer 03/03/2028 , pulmonary embolism in November 2022, prostate cancer s/p radiation 2021, former smoker with COPD on home oxygen. Patient presenting for shortness of breath. No other complaints. History Past Medical Surgical Hx Additional medical history: CAD s/p CABG 2022 Pulmonary embolism 2022 COPD Prostate cancer s/p radiation 2021 Hypertension Hyperlipidemia Diabetes Knee surgery Carotid artery stenosis CKD Additional surgical history: knee surgery Family History Additional family history: none Social History Alcohol use: Denies EtOH use Drug use: Denies recreational drugs Smoking status for patients 13 years old or older: Former Smoker Additional social history: LIVES AT HOME ALONE. HIS YOUNGER BROTHER LIVES ACROSS THE STREET. SSH. NO STAIRS. HE WAS IND PLOF. NO DME USED . OCCASSIONAL CANE USED. NO OXYGEN Medication/Allergy-Vaccine Hx Allergies: Coded Allergies: Penicillins (USE COMMENT BUTTON 03/03/23) PT STATES THAT HE WAS JUST TOLD THAT HE'S ALLERGIC TO PENICILLIN AND ITS NOT GONNA WORK FOR HIM Review of Systems All systems rev neg: except as noted (in the history note) OBJECTIVE VS/I O: Vital Signs Date Temp Pulse Resp B/P B/P Mean Pulse Ox FiO2 04/08 97.7 71-77 15-19 106-134/54-62 76-89 96-100 Last Documented: Result Date Time O2 Delivery Nasal cannula 04/08 1706 Pulse Ox 96 04/08 1700 B/P 106/54 04/08 1700 B/P Mean 76 / 1700 Pulse 77 04/08 1700 Resp 16 04/08 1700 O2 Flow Rate 2 04/08 1515 Temp 97.7 04/08 1251 Patient Weight and BMI Weight (kg): 86.200 BMI: 29.8 Medications: Active Meds + DC'd Last 24 Hrs Acetaminophen (TYLENOL) 650 MG Q4H PRN PRN PO (UNV) Hydrocodone Bitart/Acetaminophen (NORCO 5/325) 1 TAB Q4H PRN PRN PO (UNV ) Morphine Sulfate (morphine SULFATE) 4 MG Q4H PRN PRN IV (UNV) Ondansetron HCl (ZOFRAN) 4 MG Q4H PRN PRN IV (UNV) General appearance: alert, awake, oriented Head/Eyes: atraumatic, clear cornea, EOMI Neck: supple/no meningismus Cardiovascular: normal heart sounds, regular rate rhythm, no gallop, no murmur , no rub Respiratory: aerating well, clear to auscultation, symmetric expansion Abdomen: non-tender, normal bowel sounds, soft, no distention Extremities: no clubbing, no cyanosis, no edema Musculoskeletal: normal inspection, painless range of motion Neuro/STONE BREAKER: alert, oriented X 3, CNII-XII intact Skin: dry, intact Results Findings/Data: Laboratory Tests: 04/08 04/08 04/08 1510 1307 1307 [...] (Auto) (14.0 - 32.0 %) 7.5 L Grainger % (Auto) (4.8 - 9.0 %) 5.6 Eos % (Auto) (0.3 - 3.7 %) 0.7 Baso % (Auto) (0.0 - 2.0 %) 0.7 Neut # (Auto) (2.0 - 7.6 x10 3/uL) 4.78 Lymph # (Auto) (1.0 - 3.8 x10 3/uL) 0.43 L Grainger # (Auto) (0.1 - 0.8 x10 3/uL) [...] pH (5.0 - 7.0) 5.0 Ur Specific [place] (1.005 - 1.030) 1.006 Urine Protein (NEGATIVE) [...] (NONE SEEN /LPF) TRACE Laboratory Tests 04/08/23 1307: [Embedded Image Not Available] Diagnosis, Assessment Plan Free Text A P: SOB consult cardiology and consult pulmonary on 5 liters of oxygen per n/c wean to home oxygen which is about 2-3 liters echo ordered elevated D-dimer cannot get CTA as elevated Creat will get V-Q scan JERAMY with CKD consult renal placed on IVF COPD on home oxygen h/o CAD s/p CABG X4 on 03/04/2023 CTS consulted DM accuchecks and SSI prn check A1C HTN bp controlled resumed home meds HLD on statin stable Prostate cancer s/p XRT follow labs at 1049 RPT #:[id number] END OF REPORT [facility] 2023-04-08 16:57:00 [facility] Cardiothoracic Surgery Consult REPORT#:[id number] REPORT STATUS: Signed DATE:04/08/23 TIME: 1656 PATIENT: TEVIN NYE UNIT #: [id number] ROOM/BED: [place] [address] : 51 AGE: 73 SEX: M ATTEND: Elvie Gamboa MD ADM AUTHOR: Evon Andrew Physic * ALL edits or amendments must be made on the electronic/computer document * Evon Andrew 04/08/23 1657: History of Present Illness HPI HPI: This is a 73-year-old gentleman with past medical history of coronary artery disease status post coronary artery bypass graft surgery on 03/04/2023 CABG x 4 (MCCORMICK-LAD,SVG-Leana, SVG-OM, SVG-PDA) Patient was DC'd home on 03/13/2023. He was DC'd home on home oxygen for findings consistent with COPD. The patient reports over the past few weeks he has experienced increased shortness of breath with exertion. The patient denies any lower extremity edema and in fact reports his lower extremity edema has slightly improved since his hospital stay. The patient presented to hospital on [facility] for evaluation of shortness of breath. During his hospitalization for coronary bypass graft surgery the patient's creatinine wero to 3 and came down to baseline of 1.6. His admission creatinine today 2.9 The patient denies any chest pains, denies any palpitations. History Past Medical History: Reports: COPD, Diabetes mellitus, Hypertension, BPH, Dyslipidemia. Past Surgical History: Reports: Knee procedure, Lung surgery (collapsed lung). Alcohol Use Denies EtOH use Drug Use Denies recreational drugs Smoking status for patients 13 years old or older: Former Smoker Additional Social History: LIVES AT HOME ALONE. HIS YOUNGER BROTHER LIVES ACROSS THE STREET. SSH. NO STAIRS. HE WAS IND PLOF. NO DME USED . OCCASSIONAL CANE USED. NO OXYGEN Allergies: Coded Allergies: Penicillins (USE COMMENT BUTTON 03/03/23) PT STATES THAT HE WAS JUST TOLD THAT HE'S ALLERGIC TO PENICILLIN AND ITS NOT GONNA WORK FOR HIM Review of Systems Free Text ROS Notes Free Text ROS Notes: Constitutional: Negative for fever, chills, weight loss Skin: Negative for rash, negative for swelling negative for any laceration HEENT: Denies hearing loss denies any ear ringing Respiratory: Dyspnea on exertion Cardiac: Denies chest pain, denies palpitations denies orthopnea GI: Denies constipation denies diarrhea : Denies hematuria denies dysuria denies flank pain Musculoskeletal: Denies any joint pain denies any joint swelling denies any myalgia Hematologic: Denies any easy bruising, denies any bleeding Endocrine: denies any night sweats, denies polyuria polydipsia Neurologic: Denies any lightheaded denies any headache denies any confusion denies any dizziness Objective Physical Exam VS/I O: Last Documented: Result Date Time O2 Delivery Nasal cannula 04/08 1515 O2 Flow Rate 2 04/08 1515 Pulse Ox 97 04/08 1501 B/P 129/60 04/08 1501 B/P Mean 86 04/08 1501 Pulse 72 04/08 1501 Resp 18 04/08 1501 Temp 97.7 04/08 1251 PATIENT WEIGHT: Weight (lb): Weight (oz): Weight (kg): 86.200 General appearance: alert, awake, oriented Free Text Obj Notes Free Text Obj Notes: General: well nourished, well groomed, no acute distress. [...] Psychiatric: affect and demeanor normal Diagnosis, Assessment Plan Additional comments: This is a 73-year-old gentleman with past medical history of coronary artery disease status post coronary artery bypass graft surgery on 03/04/2023 CABG x 4 (MCCORMICK-LAD,SVG-Leana, SVG-OM, SVG-PDA) Patient was DC'd home on 03/13/2023. He was DC'd home on home oxygen for findings consistent with COPD. The patient reports over the past few weeks he has experienced increased shortness of breath with exertion. The patient denies any lower extremity edema and in fact reports his lower extremity edema has slightly improved since his hospital stay. The patient presented to hospital on [facility] for evaluation of shortness of breath. During his hospitalization for coronary bypass graft surgery the patient's creatinine wero to 3 and came down to baseline of 1.6. His admission creatinine today 2.9 The patient denies any chest pains, denies any palpitations. Assessment/plan 1. Coronary artery disease Status post coronary bypass graft surgery 03/04/2023 2. CKD Consult renal 3. COPD 4. Shortness of breath Sternal wound is clean and dry. There is no signs of infection. Sternum is stable. Left leg wound graft site also clean and dry no signs of infection We will obtain echocardiogram, cardiac consultation and renal consultation. Continue daily labs Daily chest x-ray We will continue to follow at 1706 at 1005 RPT #:[id number] END OF REPORT [facility] 2023-04-08 13:58:00 [facility] ([facility] EMERGENCY PROVIDER REPORT REPORT#:[id number] REPORT STATUS: Signed DATE:04/08/23 TIME: 1358 PATIENT: TEVIN NYE UNIT #: [id number] ROOM/BED: [address] AGE: 73 SEX: M PCP PHYS: Samuel Mcguire MD SERVICE AUTHOR: Paolo Arreola MD * ALL edits or amendments must be made on the electronic/computer document * HPI-General Illness General Initial Greet Date/Time 04/08/23 1252 Presentation Chief Complaint Chest pain, Shortness of breath, LIGHTHEADED, NEAR SYNCOPE Free Text HPI Notes Free Text HPI Notes 73-year-old male with a past medical his hypertension, diabetes, hyperlipidemia, CAD status post CABG in March 2023 at our facility, COPD on 2 L home oxygen. Presents to the emergency department for increased SOB with exertion. Denied fever, chills, URI symptoms, abd pain, diarrhea, nausea and vomiting, dysuria, melena, hematochezia. Review of Systems ROS Statements All systems rev neg except as marked. Review of Systems Respiratory Reports: Shortness of breath. Cardiovascular Reports: Chest pain. Neurologic Reports: Syncope. Past Medical History - Adult Stated Complaint PNEUMONIA, HYPOTENSION, DIZZINESS, TRIGEMINY Allergies Coded Allergies: Penicillins (USE COMMENT BUTTON 03/03/23) PT STATES THAT HE WAS JUST TOLD THAT HE'S ALLERGIC TO PENICILLIN AND ITS NOT GONNA WORK FOR HIM Home Medications Active Scripts ATORVASTATIN (LIPITOR) 40 MG PO 2100 30 Days #30 TAB Prov: 03/13/23 ASPIRIN 81 MG PO DAILY 30 Days #30 TAB Prov: 03/13/23 Reported Medications OXYBUTYNIN (DITROPAN) 5 MG PO BID FLUoxetine (PROzac) [...] EYE BID Calculated Suicide Risk (nurs) No risk Past Medical History: Reports: COPD, Diabetes mellitus, Hypertension, BPH, Dyslipidemia. Past Surgical History: Reports: Knee procedure, Lung surgery (collapsed lung). Additional Family History UTO Alcohol Use Denies EtOH use Drug Use Denies recreational drugs Smoking status for patients 13 years old or older: Former Smoker Additional Social History LIVES AT HOME ALONE. HIS YOUNGER BROTHER LIVES ACROSS THE [address]. SSH. NO STAIRS. HE WAS IND PLOF. NO DME USED . OCCASSIONAL CANE USED. NO OXYGEN Physical Exam Vital Signs Vital Signs First Documented: Result Date Time Pulse Ox 97 04/08 1251 B/P 120/57 04/08 1251 B/P Mean 78 04/08 1251 O2 Delivery Nasal cannula 04/08 1251 O2 Flow Rate 2 04/08 1251 Temp 36.5 08 1251 Pulse 75 08 1251 Resp 17 04/08 1251 Last Documented: Result Date Time Pulse Ox 97 04/08 1600 B/P 134/62 04/08 1600 B/P Mean 89 04/08 1600 Pulse 72 04/08 1600 Resp 19 08 1600 O2 Delivery Nasal cannula 04/08 1515 O2 Flow Rate 2 04/08 1515 Temp 36.5 04/08 1251 Review of Vital Signs Reviewed, Vital signs normal Free Text PE Notes Free Text PE Notes General/Const Awake, Alert HENT Head atraumatic, normocephalic, ears/nose/throat airway patent, TMs clear bilaterally MS Neck Neck Supple, no swelling, no tenderness to palpation Resp/Chest CTAB, No respiratory distress, no rales, no rhonchi, no wheezing Cardiovascular Normal rate, regular rhythm, heart sounds. No rubs murmurs gallops Abdomen/GI Normal bowel sounds, soft, nontender, nondistended. No rebound or guarding MS 1+ pitting edema to the lower extremities, wound to the dorsum of the left foot healing appropriately with no surrounding cellulitis. Skin Skin Warm, Dry, no abrasions, rashes, lacerations Neurologic Neurologic Oriented X3, Speech NL, no focal neuro deficits, CN 2-12 intact, 5 /5 strength, sensation intact Interpretation Diagnostics Lab Results Interpretation Results Laboratory Tests 04/08/23 1307: [Embedded Image Not Available] Laboratory Tests: 04/08 04/08 04/08 1510 1307 1307 [...] (Auto) (14.0 - 32.0 %) 7.5 L Grainger % (Auto) (4.8 - 9.0 %) 5.6 Eos % (Auto) (0.3 - 3.7 %) 0.7 Baso % (Auto) (0.0 - 2.0 %) 0.7 Neut # (Auto) (2.0 - 7.6 x10 3/uL) 4.78 Lymph # (Auto) (1.0 - 3.8 x10 3/uL) 0.43 L Grainger # (Auto) (0.1 - 0.8 x10 3/uL) [...] pH (5.0 - 7.0) 5.0 Ur Specific [place] (1.005 - 1.030) 1.006 Urine Protein (NEGATIVE) [...] Urine Mucus (NONE SEEN /LPF) TRACE Recent Impressions: RADIOLOGY - XR CHEST 2 V 04/08 1445 Report Impression - Status: SIGNED Entered: 04/08/2023 1534 IMPRESSION: Emphysematous changes noted in the right lower lung with prominent peribronchiolar markings noted. Impression By: Amber Valentin M.D. Lab Imaging Statement Laboratory radiographic studies reviewed and considered in the medical decision-making. ECG #1 Interpretation Text/Dict Note 73 bpm normal sinus rhythm no ST elevation, ST depression or T wave inversions noted. Date 04/08/23 Time 1318 Interpreted by and reviewed by me, ED physician Free Text I D Notes Free Text I D Notes Recent Impressions: RADIOLOGY - XR CHEST 2 V 04/08 1445 Report Impression - Status: SIGNED Entered: 04/08/2023 1534 IMPRESSION: Emphysematous changes noted in the right lower lung with prominent peribronchiolar markings noted. Impression By: Amber Valentin M.D. Re-Evaluation MDM Consultation Consultation Referral/Consult Name Luci Beyer MD Call Returned Call returned Call Returned Time 1647 Call Returned Date 04/08/23 Free Text Consult Notes ADMIT TO MEDICINE, PLACE CONSULT. ORDER ECHO Free Text MDM Notes Free Text MDM Notes 73-year-old male with a past medical his [...] however patient will likely need VQ scan. Will admit to hospital medicine for further evaluation and treatment. Will place a consult for CT surgery. Patient Discharge Departure Vital Signs/Condition Vital Signs First Documented: Result Date Time Pulse Ox 97 04/08 1251 B/P 120/57 04/08 1251 B/P Mean 78 04/08 1251 O2 Delivery Nasal cannula 04/08 125 O2 Flow Rate 2 04/08 1251 Temp [...] entry have been reviewed. Condition Stable Clinical Impression Clinical Impression Primary Impression: Chest pain Secondary Impressions: Near syncope, SOB (shortness of breath) Disposition Decision Hospitalize Hosp Physician Name Elvie Gamboa MD )( Accepts Hospitalization Yes )( Reason for Hospitalization CHEST PAIN, SOB, NEAR SYNCOPE )( Accepted Time 1646 )( Accepted Date 04/08/23 Call Information will see patient Discharge/Care Plan Counseled Regarding Diagnosis, Lab results, Imaging studies, Need for admission (Auto) Prescriptions Current Visit Scripts METOPROLOL TARTRATE (LOPRESSOR) 50 MG PO BID METOPROLOL TARTRATE (LOPRESSOR) 50 MG PO BID #60 TAB Ref 2 AMIODARONE (PACERONE) 200 MG PO DAILY AMIODARONE (PACERONE) 200 MG PO DAILY #30 TAB APIXABAN (ELIQUIS) 5 MG PO BID APIXABAN (ELIQUIS) 5 MG PO BID #60 TAB Ref 4 Admit Note I have spoken with the patient and/or caregivers. I have explained the patient's condition, diagnoses and treatment plan based on the information available to me at this time. I have answered the patient's and/or caregiver's questions and addressed any concerns. The patient and/or caregivers have as good an understanding of the patient's diagnosis, condition and treatment plan as can be expected at this point. The patient has been stabilized within the capability of the emergency department. The patient will be transported for further care and management or will be moved to an observation or inpatient service. I have communicated with the staff or medical practitioner taking over this patient's care. at 12[address] [facility] #:[id number] END OF REPORT [facility] 2023-04-08 13:17:00 [id number] [address] PATIENT NAME: TEVIN NYE ADMIT DATE: 04/08/23 ACCOUNT NO: [id number] ROOM NO: [id number] AGE: 73 REPORT TYPE: eELECTROCARDIOGRAM REPORT SEX: M ADMITTING PHYSICIAN:Elvie Gamboa MD ATTENDING PHYSICIAN:Elvie Gamboa MD Order: [id number] Test Reason : DONE IN ER Test Date/Time Stamp: FriApr 08 2023 13:17:45 Blood Pressure : / mmHG Vent. Rate : 072 BPM Atrial Rate : 072 BPM P-R Int : 144 ms QRS Dur : 100 ms QT Int : 410 ms P-R-T Axes : 061 -69 091 degrees QTc Int : 448 ms Normal sinus rhythm Left axis deviation Nonspecific T wave abnormality Abnormal ECG When compared with ECG of 06-MAR-2023 01:03, Significant changes have occurred See Emergency Department physician record for final interpretation. Confirmed by JAYANT GROVER MD ([id number]), production editor KEZIA GROVES ([id number]) on 04/08/2023 8:48:43 PM Referred By: Elvie Gamboa Confirmed by:JAYANT GROVER MD at 2048 PATIENT NAME: TEVIN NYE [facility] 2023-04-04 09:07:00 [facility] ([facility] DT Operative Note REPORT#:[id number] REPORT STATUS: Signed DATE:04/04/23 TIME: 906 PATIENT: TEVIN NYE UNIT #: [id number] ROOM/BED: : 51 AGE: 73 SEX: M ATTEND: Samuel Mcguire MD ADM DT: AUTHOR: Samuel Mcguire MD * ALL edits or amendments must be made on the electronic/computer document * Operative Report Operative Note Note: On 03/04/[address] Beyer with the aparicio features of this operation incluidng CABGs and LAAA Samuel Mcguire MD at 0908 RPT #:[id number] END OF REPORT [facility] 2023-03-18 14:39:00 [id number] [place] [address] PATIENT NAME: TEVIN NYE ADMIT DATE: 03/03/23 ACCOUNT NO: [id number] ROOM NO: [id number] AGE: 72 REPORT TYPE: 360 - QUERY RESPONSE DOCUMENT SEX: M ADMITTING PHYSICIAN:Luci Beyer MD ATTENDING PHYSICIAN:Luci Beyer MD Provider Query QUERY TEXT: Stage CKD 360MD Query related questions should be directed to:[facility] Coding Query Helpline Based on your clinical judgment, can you further specify the stage of the chronic kidney disease located in [Critical Care Progress Note 03/10/2023.]? Pertinent lab findings are as follows: [Insert serum creatinine and/or glomerular filtration rate and date(s)] Stages of Kidney Damage according to the National Kidney Foundation are defined as follows: -- Stage 1 Kidney damage with normal kidney function (GFR > 90) -- Stage 2 Kidney damage with mildly decreased kidney function (GFR 60-89) -- Stage 3a Kidney damage with mildly to moderately decreased kidney function (GFR 45-59) -- Stage 3b Kidney damage with moderately to severely decreased kidney function (GFR 30-44) -- Stage 4 Kidney damage with severely decreased kidney function (GFR 15-29) -- Stage 5 Kidney failure (GFR <15 or on dialysis) -- End Stage Renal Disease (GFR <15 or on dialysis or transplant) The patient's Clinical Indicators include: Developed acute kidney injury on CKD-Critical Care Progress Note 03/10/2023. CREATININE (mg/dL) 1.6H 1.6H 1.6H 1.5H 1.8H 1.9H 2.0H 2.5H 2.7H 2.8H 2.9H 3.0H 3.1H 2.9H 2. GLOMERULAR FILTRATION RATE 45.8L 45.8L 45.8L 49.5L 39.7L 37.3L 35.0L 26.8L 24.4L 23.4L 22.4L 21.5L 20. BUN (7 - 18 mg/dL) 37 H-Nephrology Consultation Note 03/05/2023. NS 1,000 mL-MAR Options provided: -- Stage 1 -- Stage 2 -- Stage 3a -- Stage 3b -- Stage 3 -- Stage 4 -- Stage 5 -- End Stage -- Other - I will add my own diagnosis -- Dismiss - Not applicable / Not valid -- Dismiss - Clinically unable to determine / Unknown -- Assign to another provider QUERY RESPONSE: The patient has stage 3b chronic kidney disease. Query created by: Kolby Soriano on 03/16/2023 10:28 PM at 1439 PATIENT NAME: TEVIN NYE [facility] 2023-03-14 16:47:00 [facility] ([facility] Discharge Summary REPORT#:[id number] REPORT STATUS: Signed DATE:03/14/23 TIME: 1647 PATIENT: TEVIN NYE UNIT #: [id number] ROOM/BED: [place] [address] : 51 AGE: 72 SEX: M ATTEND: Luci Beyer MD ADM AUTHOR: Evon Andrew Physic * ALL edits or amendments must be made on the electronic/computer document * General Information Discharge date: 03/13/23 Discharge diagnosis: CAD, S/P CABG Hospital course: This is a pleasant 72 year old male with past medical history of hypertension, dyslipidemia, DM-2 (on insulin), former smoker (quit 2018), BPH, prostate CA s/p radiation, COPD (uses inhaler at home, no home oxygen), and PE (November 2022 on eliquis) who presented to [facility] with chest pain, dyspnea on exertion, and NSTEMI. Coronary angiogram was done and revealed severe multivessel coronary artery disease. Patient was then transferred to [facility] for CV surgery evaluation and need for CABG. 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 The surgery, risks involved, STS score, benefits, complications and alternatives were explained to the patient and his brother. He acknowledged understanding and is willing to proceed. We will tentatively schedule him for surgery tomorrow morning. Further recommendations to follow. 03/04/23 CABG x 4 (MCCORMICK-LAD,SVG-Leana, SVG-OM, SVG-PDA) ALAA EVH (LGSV) Posterior pericardiotomy 03/05/23 POD 1 Patient alert, awake, and oriented Labs and CXR reviewed On bipap 12/ 40%, wean off as tolerated Trend abgs Wean off levo as tolerated Keep both chest tubes Monitor strict I Os and renal function PT/OT, ambulate, OOB in chair DVT ppx with SCDs Monitor patient closely in CVICU 03/06/23 POD 2 Patient in stable condition CXR and labs reviewed HGB 6.6, transfuse 2 units PRBC Discontinue dopamine drip Echocardiogram Discontinue both chest tubes CR increasing, renal following, UOP 25 cc/hr OOB in chair Monitor closely in CVICU 03/07/23 POD 3 Patient alert, awake, and oriented, no complaints Labs and CXR reviewed On 2l nasal cannula, encourage I-S use Hgb stable 10.1 Discontinue left pleural chest tube On amio drip 0.5 Monitor renal function, Cr 2.9 Consult rehab Ambulate patient with PT/OT Keep patient in CVICU 03/08/23 POD 4 Patient recovering well CXR and labs reviewed Wean oxygen off as tolerated NSR, off amio drip, continue po Renal following, CR improving now 2.5 Encourage mobilization and I-S use Keep in CVICU 03/09/23 POD 5 Patient resting comfortable, out of bed in recliner On room air Encourage I-S use Diurese with lasix, CR 1.9 Monitor strict I Os Rehab consulted Keep central line and valencia PT/OT Monitor patient in CVICU 03/10/23 POD 6 AAOx3 Respiratory: On room air 97%, Encourage IS, Deep Breathing, CXR reviewed Cardiac: Remains sinus rhythm, pacing wires on standby GI: + BM, Continue Bowel regimen : DC Valencia today UO:1450, diuresing well. Continue PT/OT Disposition: Rehab versus home DVT prophylaxis Labs reveiwed- replace electrolytes as needed Patient seen and examined by Dr. Beyer. Plan of care discussed with multidisciplinary team DC neck line 03/11/23 POD 7 AAOx3 Complains of feeling anxious. Denies chest pains, denies shortness of breath Renal following started on Lasix 40 twice daily Cardiac: Remains sinus rhythm, pacing wires DC'd Will obtain echo Respiratory: On room air Patient declines inpatient rehab, patient states he will go home with his brother Will order home health with case management, patient states he will go home with his brother for support Patient was seen and examined by Dr. Beyer Restart home Prozac Continue PT OT, out of bed Needs more diuresing, renal following Home soon 03/12/23 POD 8 AAOx3 Patient resting comfortable. On 2 L nasal cannula Pacing wires DC'd yesterday. Echo shows no pericardial effusion DVT studies completed this morning. No evidence for DVT Chest x-ray reviewed Respiratory: Still requiring 2 L nasal cannula, Wean as tolerated. Cardiac: Remains sinus rhythm GI:+ BM. Eating well : Voiding well. 800 urine output Renal following- Recieving Lasix 40 mg IV twice daily monitor creatinine Labs reviewed. Patient continues diuresing. Pulmonary following Coutninue out of bed, walking twice daily today. discussed with nurse. 03/13/23 POD 9 AAOx3 Patient resting comfortable. On 2 L nasal cannula Pacing wires DC'd Echo shows no pericardial effusion DVT studies completed No evidence for DVT Chest x-ray reviewed Respiratory: Still requiring 2 L nasal cannula, Patient did walk test with nurse , Desat to 81%, averages 87-90% Cardiac: Remains sinus rhythm GI:+ BM. Eating well : Voiding well. 1850 urine output Renal following- Recieving Lasix 40 mg IV twice daily Creatine stable 1.6 Labs reviewed. Patient continues diuresing. Pulmonary following Home health ordered. - patient will need home O2 Patient DC'd home when home O2 arranged. Consultants: anesthesiology, cardiology, cardiovascular surgery, critical/ director of search engine marketing, hospitalist Med Rec PCP PCP: PCP: No Primary or Family Physician Med Rec Discharge meds: Stop taking the following medications: LISINOPRIL (ZESTRIL) 20 MG TAB 20 MILLIGRAM ORAL DAILY. METOPROLOL TARTRATE (LOPRESSOR) 50 MG TAB 25 MILLIGRAM ORAL TWICE DAILY. HYDROCHLOROTHIAZIDE (HYDRODIURIL) 25 MG TAB 25 MILLIGRAM ORAL DAILY. APIXABAN (ELIQUIS) 5 MG TAB 5 MILLIGRAM ORAL TWICE DAILY. ASPIRIN (ASPIRIN) 81 MG TAB.CHEW 81 MILLIGRAM ORAL DAILY. ATORVASTATIN (LIPITOR) 10 MG TAB 5 MILLIGRAM ORAL DAILY. Continue taking these medications: OXYBUTYNIN (DITROPAN) 5 MG TAB 5 MILLIGRAM ORAL [...] CARB/VIT D3 500 MG/200 UNITS) 500 MG CALCIUM-5 MCG (200 UNIT) TAB 2 TABLET ORAL DAILY. CYANOCOBALAMIN (VITAMIN B-12) 100 MCG TAB 100 MICROGRAM ORAL DAILY. Start taking the following new medications: CLOPIDOGREL (PLAVIX) 75 MG TAB 75 MILLIGRAM ORAL [...] = 30 Qty = 30 No Refills Objective VS/I O Last Documented: Result Date Time O2 Flow Rate 2 03/13 1230 Pulse Ox 96 03/13 1110 B/P 124/58 07/ 1110 B/P Mean 0.0 03/13 1110 O2 Delivery Room air 03/13 1110 Temp 98.2 03/13 1110 Pulse 63 03/13 1110 Resp 25 03/13 1110 FiO2 28 03/11 2131 24 hour I O ending at 0700: 07 0700 03/13 1900 Intake Total 500 Output Total Balance 500 Intake, Oral 500 Number Voids 3 PATIENT WEIGHT: Weight (lb): 184 Weight (oz): 8.43 Weight (kg): 83.700 General appearance: alert, awake, oriented Discharge Instructions PCP PCP: PCP: No Primary or Family Physician )( Discharge to: Home Health [facility] Discharge Instructions Additional Discharge Routines: Attending Follow-Up )( Diet: Cardiac Follow-up Appointments Attending Physician: Attending Physician: Luci Beyer MD Attending physician follow up timeframe: In 1-2 weeks at 1651 at 1835 RPT #:[id number] END OF REPORT [facility] 2023-03-13 13:19:00 [facility] Pulmonology Progress Note REPORT#:[id number] REPORT STATUS: Signed DATE:03/13/23 TIME: 1319 PATIENT: TEVIN NYE UNIT #: [id number] ROOM/BED: [place] [address] : 51 AGE: 72 SEX: M ATTEND: Luci Beyer MD ADM AUTHOR: Sharmila Alan * ALL edits or amendments must be made on the electronic/computer document * Subjective Comments: On room air, no new complaints ROS All systems rev neg: except as marked Objective General VS/I O: Last Documented: Result Date Time Pulse Ox 96 [...] scale Measurement Method PATIENT WEIGHT: Weight (lb): 184 Weight (oz): 8.43 Weight (kg): 83.700 Medications: Active Meds + DC'd Last 24 Hrs Furosemide (LASIX) 40 MG BID 9A 5P PO Furosemide (LASIX 40 mg/4 mL INJECTION) 40 MG BID 9A 5P IV (DC) Metoprolol Tartrate (LOPRESSOR) 25 MG Q12HR PO Amlodipine Besylate (NORVASC) 10 MG DAILY PO Fluoxetine HCl (PROzac) 10 MG DAILY PO Insulin Human Lispro (HUMALOG) 0 AC HS SUBQ Ipratropium Idabel (ATROVENT) 500 MCG RTQ2H PRN PRN INH [...] ASDIR IV (CKD) Dextrose/Water (D5%W NON-DEHP) 250 ML Pantoprazole (PROTONIX) 40 MG DAILY@0600 PO Aspirin [...] ASDIR IV Dextrose/Water (DEXTROSE 5% WATER) 246 ML Glucagon (GLUCAGON) 1 MG ASDIR PRN IM Magnesium [...] BICARBONATE) 50 MEQ ASDIR PRN IV Physical Exam General appearance: alert, awake, oriented, no acute distress Head/eyes: atraumatic, normocephalic, PERRL Neck: supple/no meningismus, no bruit/NL carotids, no JVD, no lymphadenopathy Cardiovascular: normal S1/S2, no rub, no gallop Respiratory/chest: decreased breath sounds, prolonged exp phase, wheezing, symmetric expansion Abdomen: soft, normal bowel sounds, no distention, no guarding Extremities: no clubbing, no cyanosis Neuro/STONE BREAKER: alert, oriented X 3, no motor deficits Skin: dry, normal color Psychiatry: normal affect, no hallucinations Results Findings/Data: Laboratory Tests 03/13/23 0454: [Embedded Image Not Available] Laboratory Tests 03/13 03/13 03/13 03/12 03/12 1104 [...] (Auto) (14.0 - 32.0 %) 4.6 L Grainger % (Auto) (4.8 - 9.0 %) 7.2 Eos % (Auto) (0.3 - 3.7 %) 1.8 Baso % (Auto) (0.0 - 2.0 %) 0.0 Neut # (Auto) (2.0 - 7.6 x10 3/uL) 5.33 Lymph # (Auto) (1.0 - 3.8 x10 3/uL) 0.29 L Grainger # (Auto) (0.1 - 0.8 x10 3/uL) [...] (0.0 - 0.1 x10 3/uL) 0.00 Radiology data: Recent Impressions: RADIOLOGY - XR SWLW FUNC W/C V 03/12 1356 Report Impression - Status: SIGNED Entered: 03/12/2023 1425 IMPRESSION: Unremarkable swallowing study. The reader is referred to dedicated speech therapy report for details. Impression By: Wilbert Brown M.D. Diagnosis, Assessment Plan Free Text A P: 1- Acute COPD exacerbation/postop respiratory insufficiency 2- Recent pulmonary embolism s/p Eliquis 3- NSTEMI/Multivessel coronary artery disease 5- Hypertension 6- History of tobacco use 7- Obesity 8- Acute renal failure 9- S/P CABG X4 03/04/23 - On room air - S/P IV Solu-Medrol - Continue Pulmicort Perforomist and Atrovent nebulizers - Mucomyst/Hypersal as needed - CTA chest reviewed, no PE, emphysema, small effusions, RLL 1.5 cm Nodule. Need repeat CT chest in 6-8 weeks. Patient informed - Renal function improving, nephrology following. On PO Lasix - CXR improving - PT/OT - Home with home O2 at 1320 RPT #:[id number] END OF REPORT [facility] 2023-03-13 10:12:00 [facility] Nephrology Progress Note REPORT#:[id number] REPORT STATUS: Signed DATE:03/13/23 TIME: 1012 PATIENT: TEVIN NYE UNIT #: [id number] ROOM/BED: [place] [address] : 51 AGE: 72 SEX: M ATTEND: Luci Beyer MD ADM AUTHOR: Glendy Paz MD * ALL edits or amendments must be made on the electronic/computer document * Subjective Comments: Doing well Objective General VS/I O: Vital Signs: Date Time Temp Pulse Resp B/P B/P Pulse O2 O2 Flow FiO2 Mean Ox Delivery Rate 03/13 0642 98.1 69 20 126/60 0.0 95 Room air 07/ 0352 98.2 63 13 135/63 0.0 97 Nasal cannula / 2320 97.9 65 13 151/70 0.0 97 Nasal cannula 03/12 2200 100 Nasal 2 cannula 03/12 1915 Nasal 2 cannula 03/12 1842 97.7 67 13 134/61 0.0 95 Room air / 1611 69 26 132/60 87 99 / 1611 97.7 70 24 132/60 0.0 97 / 1144 63 27 101/55 75 98 07/ 1144 97.7 63 22 101/55 0.0 98 24 hour I O ending at 0700: 03/13 0700 03/12 1900 Intake Total 1040 Output Total 2200 Balance -1160 Intake, Oral 1040 Number Voids 2 Output, Urine 2200 Patient 83.7 kg Weight Weight Standing scale Measurement Method PATIENT WEIGHT: Weight (lb): 184 Weight (oz): 8.43 Weight (kg): 83.700 Medications Active Meds + DC'd Last 24 Hrs Furosemide (LASIX 40 mg/4 mL INJECTION) 40 MG BID 9A 5P IV (DC) Metoprolol Tartrate (LOPRESSOR) 25 MG Q12HR PO Amlodipine Besylate (NORVASC) 10 MG DAILY PO Fluoxetine HCl (PROzac) 10 MG DAILY PO Insulin Human Lispro (HUMALOG) 0 AC HS SUBQ Ipratropium Idabel (ATROVENT) 500 MCG RTQ2H PRN PRN INH [...] ASDIR IV (CKD) Dextrose/Water (D5%W NON-DEHP) 250 ML Pantoprazole (PROTONIX) 40 MG DAILY@0600 PO Aspirin [...] ASDIR IV Dextrose/Water (DEXTROSE 5% WATER) 246 ML Glucagon (GLUCAGON) 1 MG ASDIR PRN IM Magnesium [...] BICARBONATE) 50 MEQ ASDIR PRN IV Physical Exam General appearance: alert, awake, oriented Head/eyes: atraumatic, normocephalic, PERRLA Neck: no JVD, no lymphadenopathy Cardiovascular: normal heart sounds, regular rate and rhythm, no rub Respiratory: decreased breath sounds, aerating well, no distress Abdomen: non-tender, normal bowel sounds, soft, no rebound Extremities: pitting edema, no gangrene Neuro/STONE BREAKER: alert, normal speech Results Findings/Data: Laboratory Tests 03/13 03/13 03/12 03/12 03/12 0639 0454 1837 1612 1145 Chemistry Sodium (134 [...] (Auto) (14.0 - 32.0 %) 4.6 L Grainger % (Auto) (4.8 - 9.0 %) 7.2 Eos % (Auto) (0.3 - 3.7 %) 1.8 Baso % (Auto) (0.0 - 2.0 %) 0.0 Neut # (Auto) (2.0 - 7.6 x10 3/uL) 5.33 Lymph # (Auto) (1.0 - 3.8 x10 3/uL) 0.29 L Grainger # (Auto) (0.1 - 0.8 x10 3/uL) [...] (0.0 - 0.1 x10 3/uL) 0.00 Radiology data: Recent Impressions: RADIOLOGY - XR SWLW FUNC W/C V 03/12 1356 Report Impression - Status: SIGNED Entered: 03/12/2023 0473 IMPRESSION: Unremarkable swallowing study. The reader is referred to dedicated speech therapy report for details. Impression By: Wilbert Brown M.D. Diagnosis, Assessment Plan Free Text A P: 1. JERAMY likely ATN secondary to IV contrast. [...] abnormal left ventricular relaxation (grade 1 diastolic dysfunction). 2. Regional wall motion abnormality: Severe hypokinesis of the apical anterior, apical septal, apical lateral, and apical myocardium; hypokinesis of the basal-mid anteroseptal myocardium. 3. Right ventricle: Systolic pressure is moderately increased. 4. Mitral valve: There is mild regurgitation. 5. Tricuspid valve: Estimated right ventricular systolic pressure is 46 mmHg. There is moderate regurgitation. 6. Pericardium, extracardiac: A trivial pericardial effusion is identified. 7. Inferior vena cava: The vessel is dilated. The respirophasic diameter changes are in the normal range (= 50%). Inferior vena cava diameter is 2.1 cm. on 03/04/23 at 1717 at 1157 RPT #:[id number] END OF REPORT [facility] 2023-03-13 09:50:00 [facility] ([facility] Rehab Progress Note REPORT#:[id number] REPORT STATUS: Signed DATE:03/13/23 TIME: 0950 PATIENT: TEVIN NYE UNIT #: [id number] ROOM/BED: [place] [address] : 51 AGE: 73 SEX: M ATTEND: Luci Beyer MD ADM AUTHOR: Nicolasa Galeano PA-C * ALL edits or amendments must be made on the electronic/computer document * Subjective Chief complaint: Pt seen and examined. He deneis acute complaints. Hoping to DC home today. Objective General VS: Vital Signs: Date Time Temp Pulse Resp B/P B/P Pulse O2 O2 Flow FiO2 Mean Ox Delivery Rate 03/13 0642 98.1 69 20 126/60 0.0 95 Room air 07/06 0352 98.2 63 13 135/63 0.0 97 Nasal cannula 07/05 2320 97.9 65 13 151/70 0.0 97 Nasal cannula 07/05 2200 100 Nasal 2 cannula 07/05 1915 Nasal 2 cannula 07/05 1842 97.7 67 13 134/61 0.0 95 Room air 07/05 1611 69 26 132/60 87 99 07/05 1611 97.7 70 24 132/60 0.0 97 07/05 1144 63 27 101/55 75 98 07/05 1144 97.7 63 22 101/55 0.0 98 07/05 1001 98 Nasal 2 cannula PATIENT WEIGHT: Weight (lb): 184 Weight (oz): 8.43 Weight (kg): 83.700 Medications: Active Meds + DC'd Last 24 Hrs Furosemide (LASIX 40 mg/4 mL INJECTION) 40 MG BID 9A 5P IV (DC) Metoprolol Tartrate (LOPRESSOR) 25 MG Q12HR PO Amlodipine Besylate (NORVASC) 10 MG DAILY PO Fluoxetine HCl (PROzac) 10 MG DAILY PO Insulin Human Lispro (HUMALOG) 0 AC HS SUBQ Ipratropium Idabel (ATROVENT) 500 MCG RTQ2H PRN PRN INH [...] ASDIR IV (CKD) Dextrose/Water (D5%W NON-DEHP) 250 ML Pantoprazole (PROTONIX) 40 MG DAILY@0600 PO Aspirin [...] ASDIR IV Dextrose/Water (DEXTROSE 5% WATER) 246 ML Glucagon (GLUCAGON) 1 MG ASDIR PRN IM Magnesium [...] BICARBONATE) 50 MEQ ASDIR PRN IV Functional Progress Functional progress: Primary Diagnosis: S/P CABG x 4 Past Medical Hx: This is a pleasant 72 year old male with past medical history of hypertension, dyslipidemia, DM-2 (on insulin), former smoker (quit 2018), BPH, prostate CA s/p radiation, COPD (uses inhaler at home, no home oxygen), and PE (November 2022 on eliquis) who presented to [facility] with chest pain, dyspnea on exertion, and NSTEMI. Coronary angiogram was done and revealed severe multivessel coronary artery disease. Patient was then transferred to [facility] for CV surgery evaluation and need for CABG. Hx of Present Illness: PT STATED HE HAD CHEST CONGESTION PRIOR TO BEING Swallow Etiology ADMITTED INTO THE HOSPITAL. Functional Treatment Diagnosis: DYSPHAGIA Radiologist Present: Erlin Mayfield Referring Physician: Nicolasa Arenas PA-C Language Spoken: Slovak Patient Consented to Treatment: Verbalized Subjective Evaluation: PT PLEASANT AND COOPERATIVE SITTING UPRIGHT IN CHAIR. RADIOLOGIST AND [employer] PRESENT. MBSS COMPLETED IN LATERAL VIEW. PT [...] Vocal Quality: Normal Viewing Planes: Lateral (Faces [employer]) Oral Motor Examination: Secretion Management: Within Functional [...] OBSERVED DURING MBSS PROCEDURE. PT'S SWALLOWING FUNCTION AND SAFETY IS WITHIN NORMAL LIMITS PER PROCEDURE. NO [...] Clarification Orders: Yes Document ST Charges: MBS/Fluoro Janiya Swa [id number] If this is the patient's last treatment, this entry Time Started: 1355 Time Finished: 1415 Total Time(min) : 0:20 Completed by: Delilah Franklin during evaluation: [...] SAFEST LEAST RESTRICTIVE DIET CONSISTENCY. . . Correction Goals TARGET DATE GOAL MET 1: PT WILL BE ABLE TO SAFELY SWALLOW A REGULAR DIET AND THIN LIQUIDS WITHOUT CLICNIAL S/S OF ASPIRATION/PENETRATION. Plan of care: Speech Therapy Planned Interventions: ST for Swallow Function Treatment Plan: NONE Discharge Recommendations: D/C FROM SERVICES Physical Exam HEENT: anicteric, mucosal membranes moist, sclera clear Neck: supple, no JVD Cardiovascular: regular rate rhythm, S1/S2 Respiratory: on oxygen (1 liter NC ), aerating well, clear bilaterally Abdomen: bowel sounds present, non-distended, soft, non-tender Skin: incision (C/D/I ), dry, intact, no rash Musculoskeletal - general: Musculoskeletal - general: swelling (ble), joints normal, normal muscle mass, range of motion normal, strength testing normal, no atrophy Neuro/STONE BREAKER: alert, oriented X 3, normal speech, no motor deficits, no sensory deficits Results Findings/Data: Laboratory Tests: 03/13 03/13 03/12 03/12 03/12 0639 0454 1837 1612 1145 Chemistry Sodium (134 [...] 8.5 Magnesium (1.80 - 2.40 mg/dL) 1.81 Hematology WBC (4.5 - 11.0 x10 3/uL) [...] (Auto) (14.0 - 32.0 %) 4.6 L Grainger % (Auto) (4.8 - 9.0 %) 7.2 Eos % (Auto) (0.3 - 3.7 %) 1.8 Baso % (Auto) (0.0 - 2.0 %) 0.0 Neut # (Auto) (2.0 - 7.6 x10 3/uL) 5.33 Lymph # (Auto) (1.0 - 3.8 x10 3/uL) 0.29 L Grainger # (Auto) (0.1 - 0.8 x10 3/uL) 0.45 Eos # (Auto) (0.0 - 0.2 x10 3/uL) 0.11 Baso # (Auto) (0.0 - 0.2 x10 3/uL) 0.00 Abs Immat Gran (auto) (0.00 - 0.03 0.06 H x10 3/uL) Add Manual Diff NO Immature Gran % (0.0 - 2.0 %) 1.0 Nucleated RBC % (0 - 0 %) 0.0 Nucleated RBCs # (Man) (0.0 - 0.1 0.00 x10 3/uL) Radiology data: Recent Impressions: RADIOLOGY - XR SWLW FUNC W/C V 03/12 1356 Report Impression - Status: SIGNED Entered: 03/12/2023 3128 IMPRESSION: Unremarkable swallowing study. The reader is referred to dedicated speech therapy report for details. Impression By: Wilbert Brown M.D. Diagnosis, Assessment Plan Free Text A P: Pt is a 72 yr old male admitted [...] you for allowing us to particapte in [facility] care of the pt. Will continue to [...] possible home O2. Home with HH planning. 03/13:Pt seen. No acute distress. He will be dc home with HH and with his brother staying with him. Encourage daily gait and mobility. Sternal precautions. Consultants: anesthesiology, cardiology, cardiovascular surgery, critical/ director of search engine marketing, hospitalist Rehab attestation: Face to face exam completed. Treatment plan discussed with patient. Meets continued stay criteria. Agree with interdisciplinary treatment plan. at 1839 RPT #:[id number] END OF REPORT [facility] 2023-03-13 07:21:00 [facility] ([facility] Cardiology Progress Note REPORT#:[id number] REPORT STATUS: Signed DATE:03/13/23 TIME: 720 PATIENT: TEVIN NYE UNIT #: [id number] [place] [facility] [place] AGE: 72 SEX: M ATTEND: Luci Beyer MD ADM AUTHOR: Anuj Sylvester MD * ALL edits or amendments must be made on the electronic/computer document * Subjective Chief complaint: Anxious but Better Objective General VS/I O: 24 hour I O ending at 0700: 0706 0700 07/ 1900 Intake Total 1040 Output Total 2200 Balance -1160 Intake, Oral 1040 Number Voids 2 Output, Urine 2200 Patient 83.7 kg Weight Weight Standing scale Measurement Method Vital Signs: Date Time Temp Pulse Resp B/P B/P Pulse O2 O2 Flow FiO2 Mean Ox Delivery Rate / 0642 98.1 69 20 126/60 0.0 95 Room air 07/06 0352 98.2 63 13 135/63 0.0 97 Nasal cannula 07/05 2320 97.9 65 13 151/70 0.0 97 Nasal cannula 07/05 2200 100 Nasal 2 cannula 07/05 1915 Nasal 2 cannula 07/05 1842 97.7 67 13 134/61 0.0 95 Room air 07/05 1611 69 26 132/60 87 99 07/05 1611 97.7 70 24 132/60 0.0 97 07/05 1144 63 27 101/55 75 98 07/05 1144 97.7 63 22 101/55 0.0 98 07/05 1001 98 Nasal 2 cannula 07/05 0832 69 132/60 86 93 07/05 0807 98.1 69 24 120/62 80.9 94 PATIENT WEIGHT: Weight (lb): 184 Weight (oz): 8.43 Weight (kg): 83.700 Medications: Active Meds + DC'd Last 24 Hrs Furosemide (LASIX 40 mg/4 mL INJECTION) 40 MG BID 9A 5P IV (DC) Metoprolol Tartrate (LOPRESSOR) 25 MG Q12HR PO Amlodipine Besylate (NORVASC) 10 MG DAILY PO Fluoxetine HCl (PROzac) 10 MG DAILY PO Insulin Human Lispro (HUMALOG) 0 AC HS SUBQ Ipratropium Idabel (ATROVENT) 500 MCG RTQ2H PRN PRN INH [...] ASDIR IV (CKD) Dextrose/Water (D5%W NON-DEHP) 250 ML Pantoprazole (PROTONIX) 40 MG DAILY@0600 PO Aspirin [...] ASDIR IV Dextrose/Water (DEXTROSE 5% WATER) 246 ML Glucagon (GLUCAGON) 1 MG ASDIR PRN IM Magnesium [...] BICARBONATE) 50 MEQ ASDIR PRN IV Physical Exam General appearance: alert, awake Neck: full range of motion, non-tender, normal thyroid, supple/no meningismus, no bruit/NL carotids, no JVD, no lymphadenopathy, no masses or swelling Cardiovascular: CV assessment: regular rate and rhythm Respiratory: decreased breath sounds, clear to auscultation Abdomen: non-tender, normal bowel sounds, no distention, no guarding, no mass/ organomegaly, no pulsatile mass, no rebound Upper extremity: UE assessment: normal capillary refill, no edema Lower extremity: LE assessment: normal capillary refill, no edema 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 Free Text DxA P Notes Free Text DxA P Notes: 1- Severe COPD with exacerbation: As per Pulm 2- Recent pulmonary embolism on Eliquis 3- NSTEMI/Multivessel coronary artery disease: S/P CBBG, on tele and doing fair 5- Hypertension" No wbetter conrol and on Norvasc 10mg and Metoprolol to 50 BID 6- History of tobacco use 7. Wide complex tachy: Was asymptomatic, no recurrence last night and suggests AFIB/SVT with aberrancy, now resolved. On po amio 8. Acute on chronic renal failure at 0722 RPT #:[id number] END OF REPORT [facility] 2023-03-13 05:16:00 [facility] Cardiothoracic Surgery Prog REPORT#:[id number] REPORT STATUS: Signed DATE:03/13/23 TIME: 05 PATIENT: TEVIN NYE UNIT #: [id number] ROOM/BED: [place] [address] : 51 AGE: 73 SEX: M ATTEND: Luci Beyer MD ADM AUTHOR: Evon Andrew Physic * ALL edits or amendments must be made on the electronic/computer document * General Post-op: day 9 Status post: 03/04/23 CABG x 4 (MCCORMICK-LAD,SVG-Leana, SVG-OM, SVG-PDA) ZANE PEREA (LGSV) Posterior pericardiotomy Subjective Chief complaint: chest pain Follow up CABG Review of Systems Constitutional: Denies: chills, fatigue, generalized weakness. Skin: Denies: abrasion, bruising, laceration. Allergy/Immun: Denies: allergic reaction, anaphylaxis, rhinorrhea. Eyes: Denies: redness, visual loss/blurred, eye pain. ENT: Denies: ear ringing, throat swelling, toothache. Respiratory: Denies: [place] (dyspnea on exertion), pneumonia, SOB. Cardiovascular: Denies: chest pain, edema, orthopnea. GI: Denies: abdominal pain, anorexia, melena, nausea. : Denies: dysuria, flank pain. Musculoskeletal: Denies: arthritis, extremity pain, lumbar pain. Heme: Denies: adenopathy, bleeding, petechiae. Endocrine: Denies: cold intolerance, polydipsia, weight gain. Neuro: Denies: confusion, dizziness, seizure, syncope. All systems rev neg: except as marked Objective General VS/I O Last Documented: Result Date Time Pulse Ox 97 03/13 352 B/P 135/63 03/13 0352 B/P Mean 0.0 03/13 352 O2 Delivery Nasal cannula 03/13 352 Temp 98.2 03/13 035 Pulse 63 03/13 0352 Resp 13 03/13 035 O2 Flow Rate 2 03/12 2200 FiO2 28 03/11 2131 24 hour I O ending at 0700: 03/13 0700 07/05 1900 Intake Total 800 Output Total 1850 Balance -1050 Intake, Oral 800 Number Voids 2 Output, Urine 1850 Patient 83.7 kg Weight Weight Standing scale Measurement Method PATIENT WEIGHT: Weight (lb): 184 Weight (oz): 8.43 Weight (kg): 83.700 Physical Exam General appearance: alert, awake, oriented Wound/incision: Location: sternal Site condition: edges approximated, incision intact HEENT: anicteric, mucosal membranes moist, pupils reactive to light Neck: full range of motion, non-tender Cardiovascular: irregular rhythm, normal heart sounds, regular rate rhythm Respiratory: decreased breath sounds, aerating well, symmetric expansion Abdomen: soft, non-tender Genitourinary: no bladder distention Extremities: dry, moves all Musculoskeletal: full range of motion Neuro/STONE BREAKER: alert, oriented X 3 Skin: dry, intact Psychiatry: normal affect, normal mood Current Medications Medications: Active Meds + DC'd Last 24 Hrs Furosemide (LASIX) 40 MG BID 9A 5P PO Furosemide (LASIX 40 mg/4 mL INJECTION) 40 MG BID 9A 5P IV (DC) Metoprolol Tartrate (LOPRESSOR) 25 MG Q12HR PO Amlodipine Besylate (NORVASC) 10 MG DAILY PO Fluoxetine HCl (PROzac) 10 MG DAILY PO Insulin Human Lispro (HUMALOG) 0 AC HS SUBQ Ipratropium Idabel (ATROVENT) 500 MCG RTQ2H PRN PRN INH [...] ASDIR IV (CKD) Dextrose/Water (D5%W NON-DEHP) 250 ML Pantoprazole (PROTONIX) 40 MG DAILY@0600 PO Aspirin [...] ASDIR IV Dextrose/Water (DEXTROSE 5% WATER) 246 ML Glucagon (GLUCAGON) 1 MG ASDIR PRN IM Magnesium [...] (SODIUM BICARBONATE) 50 MEQ ASDIR PRN IV Results Findings/Data: Laboratory Tests 03/13 03/13 03/13 03/12 03/12 1104 [...] (Auto) (14.0 - 32.0 %) 4.6 L Grainger % (Auto) (4.8 - 9.0 %) 7.2 Eos % (Auto) (0.3 - 3.7 %) 1.8 Baso % (Auto) (0.0 - 2.0 %) 0.0 Neut # (Auto) (2.0 - 7.6 x10 3/uL) 5.33 Lymph # (Auto) (1.0 - 3.8 x10 3/uL) 0.29 L Grainger # (Auto) (0.1 - 0.8 x10 3/uL) [...] (0.0 - 0.1 x10 3/uL) 0.00 Radiology data: Recent Impressions: RADIOLOGY - XR [facility] W/C V 03/12 0196 Report Impression - Status: SIGNED Entered: 03/12/2023 2828 IMPRESSION: Unremarkable swallowing study. The reader is referred to dedicated speech therapy report for details. Impression By: Wilbert Brown M.D. Results: labs reviewed, vital signs stable, rythm personally rev'd, x-ray personally reviewed, current med profile rev'd Diagnosis, Assessment Plan Hospital course to date: This is a pleasant 72 year old male with past medical history of hypertension, dyslipidemia, DM-2 (on insulin), former smoker (quit 2018), BPH, prostate CA s/p radiation, COPD (uses inhaler at home, no home oxygen), and PE (November 2022 on eliquis) who presented to [facility] with chest pain, dyspnea on exertion, and NSTEMI. Coronary angiogram was done and revealed severe multivessel coronary artery disease. Patient was then transferred to [facility] for CV surgery evaluation and need for CABG. 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 The surgery, risks involved, STS score, benefits, complications and alternatives were explained to the patient and his brother. He acknowledged understanding and is willing to proceed. We will tentatively schedule him for surgery tomorrow morning. Further recommendations to follow. 03/04/23 CABG x 4 (MCCORMICK-LAD,SVG-Leana, SVG-OM, SVG-PDA) ALAA EVH (LGSV) Posterior pericardiotomy 03/05/23 POD 1 Patient alert, awake, and oriented Labs and CXR reviewed On bipap 12/5 40%, wean off as tolerated Trend abgs Wean off levo as tolerated Keep both chest tubes Monitor strict I Os and renal function PT/OT, ambulate, OOB in chair DVT ppx with SCDs Monitor patient closely in CVICU 03/06/23 POD 2 Patient in stable condition CXR and labs reviewed HGB 6.6, transfuse 2 units PRBC Discontinue dopamine drip Echocardiogram Discontinue both chest tubes CR increasing, renal following, UOP 25 cc/hr OOB in chair Monitor closely in CVICU 03/07/23 POD 3 Patient alert, awake, and oriented, no complaints Labs and CXR reviewed On 2l nasal cannula, encourage I-S use Hgb stable 10.1 Discontinue left pleural chest tube On amio drip 0.5 Monitor renal function, Cr 2.9 Consult rehab Ambulate patient with PT/OT Keep patient in CVICU 03/08/23 POD 4 Patient recovering well CXR and labs reviewed Wean oxygen off as tolerated NSR, off amio drip, continue po Renal following, CR improving now 2.5 Encourage mobilization and I-S use Keep in CVICU 03/09/23 POD 5 Patient resting comfortable, out of bed in recliner On room air Encourage I-S use Diurese with lasix, CR 1.9 Monitor strict I Os Rehab consulted Keep central line and valencia PT/OT Monitor patient in CVICU 03/10/23 POD 6 AAOx3 Respiratory: On room air 97%, Encourage IS, Deep Breathing, CXR reviewed Cardiac: Remains sinus rhythm, pacing wires on standby GI: + BM, Continue Bowel regimen : DC Valencia today UO:1450, diuresing well. Continue PT/OT Disposition: Rehab versus home DVT prophylaxis Labs reveiwed- replace electrolytes as needed Patient seen and examined by Dr. Beyer. Plan of care discussed with multidisciplinary team DC neck line 03/11/23 POD 7 AAOx3 Complains of feeling anxious. Denies chest pains, denies shortness of breath Renal following started on Lasix 40 twice daily Cardiac: Remains sinus rhythm, pacing wires DC'd Will obtain echo Respiratory: On room air Patient declines inpatient rehab, patient states he will go home with his brother Will order home health with case management, patient states he will go home with his brother for support Patient was seen and examined by Dr. Beyer Restart home Prozac Continue PT OT, out of bed Needs more diuresing, renal following Home soon 03/12/23 POD 8 AAOx3 Patient resting comfortable. On 2 L nasal cannula Pacing wires DC'd yesterday. Echo shows no pericardial effusion DVT studies completed this morning. No evidence for DVT Chest x-ray reviewed Respiratory: Still requiring 2 L nasal cannula, Wean as tolerated. Cardiac: Remains sinus rhythm GI:+ BM. Eating well : Voiding well. 800 urine output Renal following- Recieving Lasix 40 mg IV twice daily monitor creatinine Labs reviewed. Patient continues diuresing. Pulmonary following Coutninue out of bed, walking twice daily today. discussed with nurse. 03/13/23 POD 9 AAOx3 Patient resting comfortable. On 2 L nasal cannula Pacing wires DC'd Echo shows no pericardial effusion DVT studies completed No evidence for DVT Chest x-ray reviewed Respiratory: Still requiring 2 L nasal cannula, Patient did walk test with nurse , Desat to 81%, averages 87-90% Cardiac: Remains sinus rhythm GI:+ BM. Eating well : Voiding well. 1850 urine output Renal following- Recieving Lasix 40 mg IV twice daily Creatine stable 1.6 Labs reviewed. Patient continues diuresing. Pulmonary following Home health ordered. - patient will need home O2 Consultants: anesthesiology, cardiology, cardiovascular surgery, critical/ director of search engine marketing, hospitalist at 1406 at 0636 [facility] #:[id number] END OF REPORT [facility] 2023-03-12 15:55:00 [facility] Nephrology Progress Note REPORT#:[id number] REPORT STATUS: Signed DATE:03/12/23 TIME: 1555 PATIENT: TEVIN NYE UNIT #: [id number] ROOM/BED: [place] [address] : 51 AGE: 72 SEX: M ATTEND: Luci Beyer MD ADM AUTHOR: Glendy Paz MD * ALL edits or amendments must be made on the electronic/computer document * Subjective Comments: Doing well Objective General VS/I O: Vital Signs: Date Time Temp Pulse Resp B/P B/P Pulse O2 O2 Flow FiO2 Mean Ox Delivery Rate 03/12 1144 97.7 63 22 101/55 0.0 98 / 1001 98 Nasal 2 cannula 03/12 0807 [...] 24 hour I O ending at 0700: 05 0700 07 1900 Intake Total 350 Output Total 2 800 Balance 348 -800 Intake, Oral 350 Number 2 2 Bowel Movements Output, Urine 800 Output, 2 Urine/Stool Mix Patient 84.8 kg Weight Weight Standing scale Measurement Method PATIENT WEIGHT: Weight (lb): 186 Weight (oz): 15.23 Weight (kg): 84.800 Medications Active Meds + DC'd Last 24 Hrs Haloperidol (HALDOL) 2.5 MG ONCE ONE PO (DC) Furosemide (LASIX 40 mg/4 mL INJECTION) 40 MG BID 9A 5P IV Metoprolol Tartrate (LOPRESSOR) 25 MG Q12HR PO Amlodipine Besylate (NORVASC) 10 MG DAILY PO Fluoxetine HCl (PROzac) 10 MG DAILY PO Insulin Human Lispro (HUMALOG) 0 AC HS SUBQ Ipratropium Idabel (ATROVENT) 500 MCG RTQ2H PRN PRN INH [...] ASDIR IV (CKD) Dextrose/Water (D5%W NON-DEHP) 250 ML Pantoprazole (PROTONIX) 40 MG DAILY@0600 PO Aspirin [...] ASDIR IV Dextrose/Water (DEXTROSE 5% WATER) 246 ML Glucagon (GLUCAGON) 1 MG ASDIR PRN IM Magnesium [...] BICARBONATE) 50 MEQ ASDIR PRN IV Physical Exam General appearance: alert, awake, oriented Head/eyes: atraumatic, normocephalic, PERRLA Neck: no JVD, no lymphadenopathy Cardiovascular: normal heart sounds, regular rate and rhythm, no rub Respiratory: decreased breath sounds, aerating well, no distress Abdomen: non-tender, normal bowel sounds, soft, no rebound Genitourinary: urinary catheter, urine Extremities: pitting edema, no gangrene Neuro/STONE BREAKER: alert, normal speech Results Findings/Data: Laboratory Tests 03/12 03/12 03/12 03/11 1145 0808 [...] (Auto) (14.0 - 32.0 %) 5.8 L Grainger % (Auto) (4.8 - 9.0 %) 9.3 H Eos % (Auto) (0.3 - 3.7 %) 1.7 Baso % (Auto) (0.0 - 2.0 %) 0.0 Neut # (Auto) (2.0 - 7.6 x10 3/uL) 4.78 Lymph # (Auto) (1.0 - 3.8 x10 3/uL) 0.34 L Grainger # (Auto) (0.1 - 0.8 x10 3/uL) [...] (0.0 - 0.1 x10 3/uL) 0.00 Radiology data: Recent Impressions: RADIOLOGY - XR CHEST 1 V 03/12 0640 Report Impression - Status: SIGNED Entered: 03/12/2023 0733 IMPRESSION: 1. Mild enlarged cardiac silhouette. 2. Small bilateral pleural effusions. 3. [id number] pulmonary edema versus infiltrates. Impression By: [email or web address] - David Espinal M.D. ULTRASOUND - DUP VEIN SCOTTY 03/12 0702 Report Impression - Status: SIGNED Entered: 03/12/2023 0719 IMPRESSION: No evidence of deep venous thrombosis in either lower extremity. Impression By: [email or web address] - You Moore M.D. [facility] - [facility] W/C V 03/12 1356 Report Impression - Status: SIGNED Entered: 03/12/2023 1425 IMPRESSION: Unremarkable swallowing study. The reader is referred to dedicated speech therapy report for details. Impression By: [email or web address] - Erlin Lutschg, M.D. Diagnosis, Assessment Plan Free Text A P: 1. JERAMY likely ATN secondary to IV contrast. [...] abnormal left ventricular relaxation (grade 1 diastolic dysfunction). 2. Regional wall motion abnormality: Severe hypokinesis of the apical anterior, apical septal, apical lateral, and apical myocardium; hypokinesis of the basal-mid anteroseptal myocardium. 3. Right ventricle: Systolic pressure is moderately increased. 4. Mitral valve: There is mild regurgitation. 5. Tricuspid valve: Estimated right ventricular systolic pressure is 46 mmHg. There is moderate regurgitation. 6. Pericardium, extracardiac: A trivial pericardial effusion is identified. 7. Inferior vena cava: The vessel is dilated. The respirophasic diameter changes are in the normal range (= 50%). Inferior vena cava diameter is 2.1 cm. on 03/04/23 at 1717 Consultants: anesthesiology, cardiology, cardiovascular surgery, critical/ director of search engine marketing, hospitalist at 1720 RPT #:[id number] END OF REPORT [facility] 2023-03-12 14:19:00 [facility]) Rehab Progress Note REPORT#:[id number] REPORT STATUS: Signed DATE:03/12/23 TIME: 1419 PATIENT: TEVIN NYE UNIT #: [id number] ROOM/BED: 3343-1 : 51 AGE: 72 SEX: M ATTEND: Luci Beyer MD ADM AUTHOR: Nicolasa Galeano PA-C * ALL edits or amendments must be made on the electronic/computer document * Subjective Chief complaint: Pt seen and examined. Seen sitting inthe bedside chair. No acute distress. Slept well. He has been up and ambulating in his room. Objective General VS: Vital Signs: Date Time Temp Pulse Resp B/P B/P Pulse O2 O2 Flow FiO2 Mean Ox Delivery Rate 03/12 1144 97.7 63 22 101/55 0.0 98 / 1001 98 Nasal 2 cannula 03/12 0807 98.1 69 24 120/62 80.9 94 07/05 0700 Nasal 2 cannula 03/12 0403 98.2 63 14 148/63 0.0 98 Nasal cannula 03/11 2334 97.3 61 14 129/61 0.0 98 Nasal cannula 03/11 2131 96 Nasal 2 28 cannula 03/11 2100 Nasal 2 cannula 03/11 1933 97.5 72 14 137/64 0.0 98 Nasal cannula PATIENT WEIGHT: Weight (lb): 186 Weight (oz): 15.23 Weight (kg): 84.800 Medications: Active Meds + DC'd Last 24 Hrs Haloperidol (HALDOL) 2.5 MG ONCE ONE PO (DC) Furosemide (LASIX 40 mg/4 mL INJECTION) 40 MG BID 9A 5P IV Metoprolol Tartrate (LOPRESSOR) 25 MG Q12HR PO Amlodipine Besylate (NORVASC) 10 MG DAILY PO Fluoxetine HCl (PROzac) 10 MG DAILY PO Insulin Human Lispro (HUMALOG) 0 AC HS SUBQ Ipratropium Idabel (ATROVENT) 500 MCG RTQ2H PRN PRN INH [...] ASDIR IV (CKD) Dextrose/Water (D5%W NON-DEHP) 250 ML Pantoprazole (PROTONIX) 40 MG DAILY@0600 PO Aspirin [...] ASDIR IV Dextrose/Water (DEXTROSE 5% WATER) 246 ML Glucagon (GLUCAGON) 1 MG ASDIR PRN IM Magnesium [...] BICARBONATE) 50 MEQ ASDIR PRN IV Functional Progress Functional progress: Viewing Planes: Lateral (Faces EVP OF [employer]ER) Oral Motor Examination: Secretion Management: Within Functional [...] OBSERVED DURING MBSS PROCEDURE. PT'S SWALLOWING FUNCTION AND SAFETY IS WITHIN NORMAL LIMITS PER PROCEDURE. NO [...] SELF-CARE ACTIVITIES. Document OT charges: SELF/HOME MGT/ADL [id number] Document Pain/Education: Yes Review OT Plan of Care: Yes If this is the patient's last treatment, this entry serves as the discharge summary: Y Start Time: 1038 Stop Time: 1048 Treatment time ( minutes): 0:10 Completed by: Samuel Hardin - GROOMING/HYGIENE: Washing hands/face: Supervision or Set-up ----- Toileting: Moderate Assistance Safety awareness demonstrated ----- ----- ----- ----- . Occupational Therapy: Plan of Care OT Problem List: 1 Impaired Strength/ROM 3 Impaired Balance 5 Impaired Functional Mobil CUSTODIAL GOALS TARGET DATE GOAL MET 1: PT WILL PERFORM LB DRESSING TO MOD I : 03/21/23 LT GL1: N SHORT TERM GOALS TARGET DATE GOAL MET Activity: How much help from another person does the patient currently need: . . Physical Exam General appearance: alert, awake HEENT: anicteric, mucosal membranes moist, sclera clear Neck: supple, no JVD Cardiovascular: regular rate rhythm, S1/S2 Respiratory: aerating well, clear bilaterally Abdomen: bowel sounds present, non-distended, soft, non-tender Skin: incision (C/D/I ), dry, intact, no rash Musculoskeletal - general: Musculoskeletal - general: swelling (ble), joints normal, normal muscle mass, range of motion normal, strength testing normal, no atrophy Neuro/STONE BREAKER: alert, oriented X 3, normal speech, no motor deficits, no sensory deficits Results Findings/Data: Laboratory Tests: 03/12 03/12 03/12 03/11 1145 0808 0312 [...] 8.3 Magnesium (1.80 - 2.40 mg/dL) 1.95 Hematology WBC (4.5 - 11.0 x10 3/uL) [...] (Auto) (14.0 - 32.0 %) 5.8 L Grainger % (Auto) (4.8 - 9.0 %) 9.3 H Eos % (Auto) (0.3 - 3.7 %) 1.7 Baso % (Auto) (0.0 - 2.0 %) 0.0 Neut # (Auto) (2.0 - 7.6 x10 3/uL) 4.78 Lymph # (Auto) (1.0 - 3.8 x10 3/uL) 0.34 L Grainger # (Auto) (0.1 - 0.8 x10 3/uL) [...] (Man) (0.0 - 0.1 x10 3/uL) 0.00 03/11 1540 Chemistry POC Glucose (70 - 110 MG/DL) 199 H Radiology data: Recent Impressions: RADIOLOGY - XR CHEST 1 V 03/12 0640 Report Impression - Status: SIGNED Entered: 03/12/2023 0733 IMPRESSION: 1. Mild enlarged cardiac silhouette. 2. Small bilateral pleural effusions. 3. [id number] pulmonary edema versus infiltrates. Impression By: [email or web address] - David Espinal M.D. ULTRASOUND - DUP VEIN SCOTTY 03/12 0702 Report Impression - Status: SIGNED Entered: 03/12/2023 0719 IMPRESSION: No evidence of deep venous thrombosis in either lower extremity. Impression By: [email or web address] - You Moore M.D. Diagnosis, Assessment Plan Free Text A P: Pt is a 72 yr old male admitted [...] you for allowing us to particapte in [facility] care of the pt. Will continue to [...] HH planning. Consultants: anesthesiology, cardiology, cardiovascular surgery, critical/ director of search engine marketing, hospitalist Rehab attestation: Face to face exam completed. Treatment plan discussed with patient. at 1230 RPT #:[id number] END OF REPORT [facility] 2023-03-12 12:58:00 [facility] Pulmonology Progress Note REPORT#:[id number] REPORT STATUS: Signed DATE:03/12/23 TIME: 1258 PATIENT: TEVIN NYE UNIT #: [id number] ROOM/BED: [place] [address] : 51 AGE: 72 SEX: M ATTEND: Luci Beyer MD ADM AUTHOR: Sharmila Alan * ALL edits or amendments must be made on the electronic/computer document * Subjective Comments: On room air, no new complaints ROS All systems rev neg: except as marked Objective General VS/I O: Last Documented: Result Date Time Pulse Ox [...] scale Measurement Method PATIENT WEIGHT: Weight (lb): 186 Weight (oz): 15.23 Weight (kg): 84.800 Medications: Active Meds + DC'd Last 24 Hrs Haloperidol (HALDOL) 2.5 MG ONCE ONE PO (DC) Furosemide (LASIX 40 mg/4 mL INJECTION) 40 MG BID 9A 5P IV Metoprolol Tartrate (LOPRESSOR) 25 MG Q12HR PO Amlodipine Besylate (NORVASC) 10 MG DAILY PO Fluoxetine HCl (PROzac) 10 MG DAILY PO Insulin Human Lispro (HUMALOG) 0 AC HS SUBQ Ipratropium Idabel (ATROVENT) 500 MCG RTQ2H PRN PRN INH [...] ASDIR IV (CKD) Dextrose/Water (D5%W NON-DEHP) 250 ML Pantoprazole (PROTONIX) 40 MG DAILY@0600 PO Aspirin [...] ASDIR IV Dextrose/Water (DEXTROSE 5% WATER) 246 ML Glucagon (GLUCAGON) 1 MG ASDIR PRN IM Magnesium [...] BICARBONATE) 50 MEQ ASDIR PRN IV Physical Exam General appearance: alert, awake, oriented, no acute distress Head/eyes: atraumatic, normocephalic, PERRL Neck: supple/no meningismus, no bruit/NL carotids, no JVD, no lymphadenopathy Cardiovascular: normal S1/S2, no rub, no gallop Respiratory/chest: decreased breath sounds, prolonged exp phase, wheezing, symmetric expansion Abdomen: soft, normal bowel sounds, no distention, no guarding Extremities: no clubbing, no cyanosis Neuro/STONE BREAKER: alert, oriented X 3, no motor deficits Skin: dry, normal color Psychiatry: normal affect, no hallucinations Results Findings/Data: Laboratory Tests 03/12/23 0312: [Embedded Image Not Available] Laboratory Tests 03/12 03/12 03/12 03/11 03/11 1145 [...] (Auto) (14.0 - 32.0 %) 5.8 L Grainger % (Auto) (4.8 - 9.0 %) 9.3 H Eos % (Auto) (0.3 - 3.7 %) 1.7 Baso % (Auto) (0.0 - 2.0 %) 0.0 Neut # (Auto) (2.0 - 7.6 x10 3/uL) 4.78 Lymph # (Auto) (1.0 - 3.8 x10 3/uL) 0.34 L Grainger # (Auto) (0.1 - 0.8 x10 3/uL) [...] (0.0 - 0.1 x10 3/uL) 0.00 Radiology data: Recent Impressions: RADIOLOGY - XR CHEST 1 V 03/12 640 Report Impression - Status: SIGNED Entered: 03/12/202333 IMPRESSION: 1. Mild enlarged cardiac silhouette. 2. Small bilateral pleural effusions. 3. [id number] pulmonary edema versus infiltrates. Impression By: [email or web address] - David Espinal M.D. ULTRASOUND - DUP VEIN SCOTTY 03/12 702 Report Impression - Status: SIGNED Entered: 03/12/2023718 IMPRESSION: No evidence of deep venous thrombosis in either lower extremity. Impression By: [email or web address] - You Moore M.D. 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 Need repeat CT chest in 6-8 weeks. Patient informed - Renal function improving, nephrology following. On IV Lasix - CXR improving - PT/OT at 1303 RPT #:[id number] END OF REPORT [facility] 2023-03-12 06:55:00 [facility] Cardiology Progress Note REPORT#:[id number] REPORT STATUS: Signed DATE:03/12/23 TIME: 0655 PATIENT: TEVIN NYE UNIT #: [id number] ROOM/BED: [place] [address] : 51 AGE: 72 SEX: M ATTEND: Luci Beyer MD ADM AUTHOR: Anuj Sylvester MD * ALL edits or amendments must be made on the electronic/computer document * Subjective Chief complaint: Anxious but Better Objective General VS/I O: 24 hour I O ending at 0700: 05 0700 03/11 1900 Intake Total 350 Output [...] 72 14 137/64 0.0 98 Nasal cannula 03/11 1221 97.9 63 14 134/62 0.0 03/11 0844 96 Room air 03/11 0830 Nasal 1 cannula 03/11 0723 97.9 73 14 140/62 0.0 95 Nasal cannula PATIENT WEIGHT: Weight (lb): 186 Weight (oz): 15.23 Weight (kg): 84.800 Medications: Active Meds + DC'd Last 24 Hrs Haloperidol (HALDOL) 2.5 MG ONCE ONE PO (DC) Furosemide (LASIX 40 mg/4 mL INJECTION) 40 MG BID 9A 5P IV Metoprolol Tartrate (LOPRESSOR) 25 MG Q12HR PO Amlodipine Besylate (NORVASC) 10 MG DAILY PO Fluoxetine HCl (PROzac) 10 MG DAILY PO Insulin Human Lispro (HUMALOG) 0 AC HS SUBQ Ipratropium Idabel (ATROVENT) 500 MCG RTQ2H PRN PRN INH [...] ASDIR IV (CKD) Dextrose/Water (D5%W NON-DEHP) 250 ML Pantoprazole (PROTONIX) 40 MG DAILY@0600 PO Aspirin [...] ASDIR IV Dextrose/Water (DEXTROSE 5% WATER) 246 ML Glucagon (GLUCAGON) 1 MG ASDIR PRN IM Magnesium [...] BICARBONATE) 50 MEQ ASDIR PRN IV Physical Exam General appearance: alert, awake Neck: full range of motion, non-tender, normal thyroid, supple/no meningismus, no bruit/NL carotids, no JVD, no lymphadenopathy, no masses or swelling Cardiovascular: CV assessment: regular rate and rhythm Respiratory: decreased breath sounds, clear to auscultation Abdomen: non-tender, normal bowel sounds, no distention, no guarding, no mass/ organomegaly, no pulsatile mass, no rebound Upper extremity: UE assessment: normal capillary refill, no edema Lower extremity: LE assessment: normal capillary refill, no edema Results Findings/Data: Laboratory Tests 03/12 1926 1540 1313 0703 Chemistry [...] (Auto) (14.0 - 32.0 %) 5.8 L Grainger % (Auto) (4.8 - 9.0 %) 9.3 H Eos % (Auto) (0.3 - 3.7 %) 1.7 Baso % (Auto) (0.0 - 2.0 %) 0.0 Neut # (Auto) (2.0 - 7.6 x10 3/uL) 4.78 Lymph # (Auto) (1.0 - 3.8 x10 3/uL) 0.34 L Grainger # (Auto) (0.1 - 0.8 x10 3/uL) [...] (1.80 - 2.40 mg/dL) 1.95 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 Free Text DxA P Notes Free Text DxA P Notes: 1- Severe COPD with exacerbation: As per Pulm 2- Recent pulmonary embolism on Eliquis 3- NSTEMI/Multivessel coronary artery disease: S/P CBBG, on tele and doing fair 5- Hypertension" No wbetter conrol and on Norvasc 10mg and Metoprolol to 50 BID 6- History of tobacco use 7. Wide complex tachy: Was asymptomatic, no recurrence last night and suggests AFIB/SVT with aberrancy, now resolved. On po amio 8. Acute on chronic renal failure at 0657 RPT #:[id number] END OF REPORT [facility] 2023-03-12 05:03:00 [facility] Cardiothoracic Surgery Prog REPORT#:[id number] REPORT STATUS: Signed DATE:03/12/23 TIME: 0503 PATIENT: TEVIN NYE UNIT #: [id number] ROOM/BED: [address] : [birth year] AGE: 72 SEX: M ATTEND: Luci Beyer MD ADM AUTHOR: Evon Andrew Physic * ALL edits or amendments must be made on the electronic/computer document * General Post-op: day 8 Status post: 03/04/23 CABG x 4 (MCCORMICK-LAD,SVG-Leana, SVG-OM, SVG-PDA) ALAA EVH (LGSV) Posterior pericardiotomy Subjective Chief complaint: chest pain Follow up CABG Review of Systems Constitutional: Denies: chills, fatigue, generalized weakness. Skin: Denies: abrasion, bruising, laceration. Allergy/Immun: Denies: allergic reaction, anaphylaxis, rhinorrhea. Eyes: Denies: redness, visual loss/blurred, eye pain. ENT: Denies: ear ringing, throat swelling, toothache. Respiratory: Denies: [place] (dyspnea on exertion), pneumonia, SOB. Cardiovascular: Denies: chest pain, edema, orthopnea. GI: Denies: abdominal pain, anorexia, melena, nausea. : Denies: dysuria, flank pain. Musculoskeletal: Denies: arthritis, extremity pain, lumbar pain. Heme: Denies: adenopathy, bleeding, petechiae. Endocrine: Denies: cold intolerance, polydipsia, weight gain. Neuro: Denies: confusion, dizziness, seizure, syncope. All systems rev neg: except as marked Objective General VS/I O Last Documented: Result Date Time Pulse Ox 98 03/12 040 B/P 148/63 03/12 0403 B/P Mean 0.0 03/12 0403 O2 Delivery Nasal cannula 03/12 040 Temp 98.2 03/12 0403 Pulse 63 03/12 0403 Resp 14 03/12 0403 FiO2 28 03/11 2131 O2 Flow Rate 2 03/111 24 hour I O ending at 0700: 03/12 0700 03/11 1900 Intake Total Output Total 800 Balance -800 Number 2 Bowel Movements Output, Urine 800 Patient 84.8 kg Weight Weight Standing scale Measurement Method PATIENT WEIGHT: Weight (lb): 186 Weight (oz): 15.23 Weight (kg): 84.800 Physical Exam General appearance: alert, awake, oriented Wound/incision: Location: sternal Site condition: edges approximated, incision intact HEENT: anicteric, mucosal membranes moist, pupils reactive to light Neck: full range of motion, non-tender Cardiovascular: irregular rhythm, normal heart sounds, regular rate rhythm Respiratory: decreased breath sounds, aerating well, symmetric expansion Abdomen: soft, non-tender Genitourinary: no bladder distention Extremities: dry, moves all Musculoskeletal: full range of motion Neuro/STONE BREAKER: alert, oriented X 3 Skin: dry, intact Psychiatry: normal affect, normal mood Diagnosis, Assessment Plan Hospital course to date: This is a pleasant 72 year old male with past medical history of hypertension, dyslipidemia, DM-2 (on insulin), former smoker (quit 2018), BPH, prostate CA s/p radiation, COPD (uses inhaler at home, no home oxygen), and PE (November 2022 on eliquis) who presented to [facility] with chest pain, dyspnea on exertion, and NSTEMI. Coronary angiogram was done and revealed severe multivessel coronary artery disease. Patient was then transferred to [facility] for CV surgery evaluation and need for CABG. 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 The surgery, risks involved, STS score, benefits, complications and alternatives were explained to the patient and his brother. He acknowledged understanding and is willing to proceed. We will tentatively schedule him for surgery tomorrow morning. Further recommendations to follow. 03/04/23 CABG x 4 (MCCORMICK-LAD,SVG-Leana, SVG-OM, SVG-PDA) ALAA EVH (LGSV) Posterior pericardiotomy 03/05/23 POD 1 Patient alert, awake, and oriented Labs and CXR reviewed On bipap 12/5 40%, wean off as tolerated Trend abgs Wean off levo as tolerated Keep both chest tubes Monitor strict I Os and renal function PT/OT, ambulate, OOB in chair DVT ppx with SCDs Monitor patient closely in CVICU 03/06/23 POD 2 Patient in stable condition CXR and labs reviewed HGB 6.6, transfuse 2 units PRBC Discontinue dopamine drip Echocardiogram Discontinue both chest tubes CR increasing, renal following, UOP 25 cc/hr OOB in chair Monitor closely in CVICU 03/07/23 POD 3 Patient alert, awake, and oriented, no complaints Labs and CXR reviewed On 2l nasal cannula, encourage I-S use Hgb stable 10.1 Discontinue left pleural chest tube On amio drip 0.5 Monitor renal function, Cr 2.9 Consult rehab Ambulate patient with PT/OT Keep patient in CVICU 03/08/23 POD 4 Patient recovering well CXR and labs reviewed Wean oxygen off as tolerated NSR, off amio drip, continue po Renal following, CR improving now 2.5 Encourage mobilization and I-S use Keep in CVICU 03/09/23 POD 5 Patient resting comfortable, out of bed in recliner On room air Encourage I-S use Diurese with lasix, CR 1.9 Monitor strict I Os Rehab consulted Keep central line and valencia PT/OT Monitor patient in CVICU 03/10/23 POD 6 AAOx3 Respiratory: On room air 97%, Encourage IS, Deep Breathing, CXR reviewed Cardiac: Remains sinus rhythm, pacing wires on standby GI: + BM, Continue Bowel regimen : DC Valencia today UO:1450, diuresing well. Continue PT/OT Disposition: Rehab versus home DVT prophylaxis Labs reveiwed- replace electrolytes as needed Patient seen and examined by Dr. Beyer. Plan of care discussed with multidisciplinary team DC neck line 03/11/23 POD 7 AAOx3 Complains of feeling anxious. Denies chest pains, denies shortness of breath Renal following started on Lasix 40 twice daily Cardiac: Remains sinus rhythm, pacing wires DC'd Will obtain echo Respiratory: On room air Patient declines inpatient rehab, patient states he will go home with his brother Will order home health with case management, patient states he will go home with his brother for support Patient was seen and examined by Dr. Beyer Restart home Prozac Continue PT OT, out of bed Needs more diuresing, renal following Home soon 03/12/23 POD 8 AAOx3 Patient resting comfortable. On 2 L nasal cannula Pacing wires DC'd yesterday. Echo shows no pericardial effusion DVT studies completed this morning. No evidence for DVT Chest x-ray reviewed Respiratory: Still requiring 2 L nasal cannula, Wean as tolerated. Cardiac: Remains sinus rhythm GI:+ BM. Eating well : Voiding well. 800 urine output Renal following- Recieving Lasix 40 mg IV twice daily monitor creatinine Labs reviewed. Patient continues diuresing. Pulmonary following Coutninue out of bed, walking twice daily today. discussed with nurse. Consultants: anesthesiology, cardiology, cardiovascular surgery, critical/ director of search engine marketing, hospitalist at 1546 at 1841 RPT #:[id number] END OF REPORT [facility] 2023-03-11 16:37:00 [id number] [place] [address] PATIENT NAME: TEVIN NYE ADMIT DATE: 03/03/23 ACCOUNT NO: [id number] ROOM NO: [facility] [place] AGE: 72 REPORT TYPE: eECHOCARDIOGRAM REPORT SEX: M ADMITTING PHYSICIAN:Luci Beyer MD ATTENDING PHYSICIAN:Luci Beyer MD *[place] [address] Limited Transthoracic Echocardiogram Patient: Tevin Nye Study Date: 03/11/2023 BP: 134 / 62 Location: [facility] URN: [id number] : 1950 Age: 72 Height: 67 in / 170.2 cm Gender: M Weight: 188.6 lb / 85.7 kg BMI/BSA: 29.6 kg/m 2 / 1.97 m 2 *Ordering Physician: * Evon Andrew *Interpreting Physician: * Anuj Sylvester MD *[employer] Applier: * GURPREET Adams Indications: PACING WIRES DC'D. R/O EFFUSION. Study data: Transthoracic echocardiogram, limited study. Procedure: Transthoracic echocardiography was performed. Images were obtained using a [employer] cardiac ultrasound machine. Image quality was good. Limited 2D and limited spectral Doppler. Location: Bedside. Patient status: Inpatient. Patient room number: 3343. Study status: DANNY. Findings Left ventricle: The cavity size is normal. Systolic function is normal. The estimated ejection fraction is 50-54%. Regional wall motion abnormalities: Hypokinesis; consistent with postoperative changes. Right ventricle: TAPSE is 1.9 cm. Pacer wire noted in the right ventricle. Systolic function is normal. Left atrium: The atrium is normal in size. PATIENT NAME: TEVIN NYE Right atrium: Pacer wire noted in right atrium. Pericardium: There is no pericardial effusion. Systemic veins: Inferior vena cava: The vessel is normal in size. The respirophasic diameter changes are in the [...] 2 21 16 - 34 ES, A/L Conclusions PATIENT NAME: TEVIN NYE Summary: 1. Left ventricle: The cavity size is normal. Systolic function is normal. The estimated ejection fraction is 50-54%. Hypokinesis; consistent with postoperative changes. 2. Pericardium, extracardiac: There is no pericardial effusion. Prepared and electronically signed by Anuj Sylvester MD 03/11/2023 16:37 at 1637 PATIENT NAME: TEVIN NYE [facility] 2023-03-11 11:09:00 [facility] Cardiology Progress Note REPORT#:[id number] REPORT STATUS: Signed DATE:03/11/23 TIME: 1109 PATIENT: TEVIN NYE UNIT #: [id number] ROOM/BED: [place] [address] : 51 AGE: 72 SEX: M ATTEND: Luci Beyer MD ADM AUTHOR: Anuj Sylvester MD * ALL edits or amendments must be made on the electronic/computer document * Subjective Chief complaint: Anxious but Better Objective General VS/I O: 24 hour I O ending at 0700: [...] air 03/11 0830 Nasal 1 cannula 03/11 07 97.9 73 14 140/62 0.0 95 Nasal cannula 03/11 0337 97.5 66 13 162/76 104.9 94 Room air 03/10 2242 98.1 70 13 145/69 94.3 94 Room air 03/10 2036 98 Room air 21 03/10 2027 98.1 74 13 144/71 95.3 91 Room air 03/10 1420 97.9 70 14 126/66 86.0 93 Room air 03/10 1300 66 26 142/68 98 96 / 1200 65 24 148/70 100 96 03/10 1110 99 High flow 2 nasal cannula PATIENT WEIGHT: Weight (lb): 189 Weight (oz): 13.09 Weight (kg): 86.100 Medications: Active Meds + DC'd Last 24 Hrs Furosemide (LASIX 40 mg/4 mL INJECTION) 40 [...] Vial) 20 MG DAILY IV (DC) Ipratropium Idabel (ATROVENT) 500 MCG RTQ2H PRN PRN INH [...] ASDIR IV (CKD) Dextrose/Water (D5%W NON-DEHP) 250 ML Pantoprazole (PROTONIX) 40 MG DAILY@0600 PO Aspirin [...] ASDIR IV Dextrose/Water (DEXTROSE 5% WATER) 246 ML Glucagon (GLUCAGON) 1 MG ASDIR PRN IM Magnesium [...] BICARBONATE) 50 MEQ ASDIR PRN IV Physical Exam General appearance: alert, awake Neck: full range of motion, non-tender, normal thyroid, supple/no meningismus, no bruit/NL carotids, no JVD, no lymphadenopathy, no masses or swelling Cardiovascular: CV assessment: regular rate and rhythm Respiratory: decreased breath sounds, clear to auscultation Abdomen: non-tender, normal bowel sounds, no distention, no guarding, no mass/ organomegaly, no pulsatile mass, no rebound Upper extremity: UE assessment: normal capillary refill, no edema Lower extremity: LE assessment: normal capillary refill, no edema Results Findings/Data: Laboratory Tests 03/118 2039 1226 Chemistry Sodium (134 - 147 [...] (Auto) (14.0 - 32.0 %) 5.5 L Grainger % (Auto) (4.8 - 9.0 %) 9.6 H Eos % (Auto) (0.3 - 3.7 %) 0.3 Baso % (Auto) (0.0 - 2.0 %) 0.4 Neut # (Auto) (2.0 - 7.6 x10 3/uL) 6.31 Lymph # (Auto) (1.0 - 3.8 x10 3/uL) 0.42 L Grainger # (Auto) (0.1 - 0.8 x10 3/uL) [...] Magnesium (1.80 - 2.40 mg/dL) 2.13 Radiology data: Recent Impressions: RADIOLOGY - XR CHEST 1 V 03/11 0650 Report Impression - Status: SIGNED Entered: 03/11/2023 0730 IMPRESSION: 1. Moderate pulmonary edema versus infiltrates, pneumonia. 2. Small bilateral pleural effusions. 3. Mild enlarged cardiac silhouette. Impression By: [email or web address] - David Espinal M.D. 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 Free Text DxA P Notes Free Text DxA P Notes: 1- Severe COPD with exacerbation: As per Pulm 2- Recent pulmonary embolism on Eliquis 3- NSTEMI/Multivessel coronary artery disease: S/P CBBG, extubated and doing fair 5- Hypertension" Will increase Norvasc 10mg and increase Metoprolol to 55 BID 6- History of tobacco use 7. Wide complex tachy: Asymptomatic and suggests AFIB/SVT with aberrancy, now resolved. On po amio 8. Acute on chronic renal failure at 1110 RPT #:[id number] END OF REPORT [facility] 2023-03-11 11:00:00 [facility] Pulmonology Progress Note REPORT#:[id number] REPORT STATUS: Signed DATE:03/11/23 TIME: 1100 PATIENT: TEVIN NYE UNIT #: [id number] ROOM/BED: [place] [address] : 51 AGE: 72 SEX: M ATTEND: Luci Beyer MD ADM AUTHOR: Jonh Velasquez MD * ALL edits or amendments must be made on the electronic/computer document * Subjective Chief complaint: Chest pain Comments: More short of breath today Concerned about Prozac ROS: no nausea/vomitting or chest pain Objective General VS/I O: Last Documented: Result Date Time Pulse Ox 96 03/11 844 O2 Delivery Room air 03/11 844 B/P 140/62 03/11 723 B/P Mean 0.0 03/11 723 Temp 97.9 03/11 723 Pulse 73 03/11 723 Resp 14 03/11 723 FiO2 21 03/106 O2 Flow Rate 2 03/10 1110 24 hour I O ending at 0700: 03/10 1900 03/11 0700 Intake Total 460 250 Output Total 1300 120 Balance -840 130 Intake, Oral 360 250 Intake, Oral 100 Supplement Number 2 Bowel Movements Number Voids 1 Output, Urine 1300 120 Patient 190 lb Weight Weight Standing scale Measurement Method PATIENT WEIGHT: Weight (lb): 189 Weight (oz): 13.09 Weight (kg): 86.100 Physical Exam General appearance: chronically ill appearing Head/eyes: atraumatic, normocephalic, PERRL Neck: supple/no meningismus, no bruit/NL carotids, no JVD, no lymphadenopathy Cardiovascular: normal S1/S2, no rub, no gallop Respiratory/chest: decreased breath sounds, prolonged exp phase, wheezing, symmetric expansion Abdomen: soft, normal bowel sounds, no distention, no guarding Extremities: no clubbing, no cyanosis Neuro/STONE BREAKER: alert, oriented X 3, no motor deficits Skin: dry, normal color Psychiatry: normal affect, no hallucinations Results Findings/Data: Laboratory Tests 03/11/23 0408: [Embedded Image Not Available] Laboratory Tests 03/10 03/10 03/11 1226 2039 0408 [...] (Auto) (14.0 - 32.0 %) 5.5 L Grainger % (Auto) (4.8 - 9.0 %) 9.6 H Eos % (Auto) (0.3 - 3.7 %) 0.3 Baso % (Auto) (0.0 - 2.0 %) 0.4 Neut # (Auto) (2.0 - 7.6 x10 3/uL) 6.31 Lymph # (Auto) (1.0 - 3.8 x10 3/uL) 0.42 L Grainger # (Auto) (0.1 - 0.8 x10 3/uL) [...] 3/uL) 0.00 Diagnosis, Assessment Plan Free Text A P: 1- Acute COPD exacerbation/postop respiratory insufficiency 2- Recent pulmonary embolism on Eliquis 3- NSTEMI/Multivessel coronary artery disease 5- Hypertension 6- History of tobacco use 7- Obesity 8- Acute renal failure 9- 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 Need repeat CT chest in 6-8 weeks. Patient informed - Monitor renal function, nephrology following. s/p Lasix 40 mg X1 - CXR noted with pulm edema-stable - PT/OT Overall improving at 1101 RPT #:[id number] END OF REPORT [facility] 2023-03-11 10:16:00 [facility] ([facility] Nephrology Progress Note REPORT#:[id number] REPORT STATUS: Signed DATE:03/11/23 TIME: 1016 PATIENT: TEVIN NYE UNIT #: [id number] ROOM/BED: [place] [address] : 51 AGE: 72 SEX: M ATTEND: Luci Beyer MD ADM AUTHOR: Glendy Paz MD * ALL edits or amendments must be made on the electronic/computer document * Subjective Comments: Out of ICU. Breathing okay. Still complaining of cough with productive sputum Objective General VS/I O: Vital Signs: Date Time Temp Pulse Resp B/P B/P Pulse O2 O2 Flow FiO2 Mean Ox Delivery Rate 03/11 0844 96 Room air 03/11 0723 97.9 73 14 140/62 0.0 95 Nasal cannula 03/11 0337 97.5 66 13 162/76 104.9 94 Room air 03/10 2242 98.1 70 13 145/69 94.3 94 Room air 03/10 2036 98 Room air 21 03/10 202 98.1 74 13 144/71 95.3 91 Room [...] scale Measurement Method PATIENT WEIGHT: Weight (lb): 189 Weight (oz): 13.09 Weight (kg): 86.100 Medications Active Meds + DC'd Last 24 Hrs Furosemide (LASIX 40 mg/4 mL INJECTION) 40 [...] Vial) 20 MG DAILY IV (DC) Ipratropium Idabel (ATROVENT) 500 MCG RTQ2H PRN PRN INH [...] ASDIR IV (CKD) Dextrose/Water (D5%W NON-DEHP) 250 ML Pantoprazole (PROTONIX) 40 MG DAILY@0600 PO Aspirin [...] ASDIR IV Dextrose/Water (DEXTROSE 5% WATER) 246 ML Glucagon (GLUCAGON) 1 MG ASDIR PRN IM Magnesium [...] BICARBONATE) 50 MEQ ASDIR PRN IV Physical Exam General appearance: alert, awake, oriented Head/eyes: atraumatic, normocephalic, PERRLA Neck: no JVD, no lymphadenopathy Cardiovascular: normal heart sounds, regular rate and rhythm, no rub Respiratory: decreased breath sounds, aerating well, no distress Abdomen: non-tender, normal bowel sounds, soft, no rebound Genitourinary: urinary catheter, urine Extremities: pitting edema, no gangrene Neuro/STONE BREAKER: alert, normal speech Results Findings/Data: Laboratory Tests 03/119 1226 Chemistry Sodium (134 - [...] (1.80 - 2.40 mg/dL) 2.13 Laboratory Tests 03/118 Hematology WBC (4.5 - 11.0 x10 3/uL) [...] (Auto) (14.0 - 32.0 %) 5.5 L Grainger % (Auto) (4.8 - 9.0 %) 9.6 H Eos % (Auto) (0.3 - 3.7 %) 0.3 Baso % (Auto) (0.0 - 2.0 %) 0.4 Neut # (Auto) (2.0 - 7.6 x10 3/uL) 6.31 Lymph # (Auto) (1.0 - 3.8 x10 3/uL) 0.42 L Grainger # (Auto) (0.1 - 0.8 x10 3/uL) [...] (0.0 - 0.1 x10 3/uL) 0.00 Radiology data: Recent Impressions: RADIOLOGY - XR CHEST 1 V 03/11 0650 Report Impression - Status: SIGNED Entered: 03/11/2023 4606 IMPRESSION: 1. Moderate pulmonary edema versus infiltrates, pneumonia. 2. Small bilateral pleural effusions. 3. Mild enlarged cardiac silhouette. Impression By: [email or web address] - David Espinal M.D. Diagnosis, Assessment Plan Free Text A P: 1. JERAMY likely ATN secondary to IV contrast. [...] abnormal left ventricular relaxation (grade 1 diastolic dysfunction). 2. Regional wall motion abnormality: Severe hypokinesis of the apical anterior, apical septal, apical lateral, and apical myocardium; hypokinesis of the basal-mid anteroseptal myocardium. 3. Right ventricle: Systolic pressure is moderately increased. 4. Mitral valve: There is mild regurgitation. 5. Tricuspid valve: Estimated right ventricular systolic pressure is 46 mmHg. There is moderate regurgitation. 6. Pericardium, extracardiac: A trivial pericardial effusion is identified. 7. Inferior vena cava: The vessel is dilated. The respirophasic diameter changes are in the normal range (= 50%). Inferior vena cava diameter is 2.1 cm. on 03/04/23 at 1717 at 1234 RPT #:[id number] END OF REPORT [facility] 2023-03-11 05:42:00 [facility] Cardiothoracic Surgery Prog REPORT#:[id number] REPORT STATUS: Signed DATE:03/11/23 TIME: 541 PATIENT: TEVIN NYE UNIT #: [id number] ROOM/BED: [address] : [address] AGE: 72 SEX: M ATTEND: Luci Beyer MD ADM AUTHOR: Evon Andrew Physic * ALL edits or amendments must be made on the electronic/computer document * General Post-op: day 7 Status post: 03/04/23 CABG x 4 (MCCORMICK-LAD,SVG-Leana, SVG-OM, SVG-PDA) ALAA EVH (LGSV) Posterior pericardiotomy Subjective Chief complaint: chest pain Follow up CABG Review of Systems Constitutional: Denies: chills, fatigue, generalized weakness. Skin: Denies: abrasion, bruising, laceration. Allergy/Immun: Denies: allergic reaction, anaphylaxis, rhinorrhea. Eyes: Denies: redness, visual loss/blurred, eye pain. ENT: Denies: ear ringing, throat swelling, toothache. Respiratory: Denies: [place] (dyspnea on exertion), pneumonia, SOB. Cardiovascular: Denies: chest pain, edema, orthopnea. GI: Denies: abdominal pain, anorexia, melena, nausea. : Denies: dysuria, flank pain. Musculoskeletal: Denies: arthritis, extremity pain, lumbar pain. Heme: Denies: adenopathy, bleeding, petechiae. Endocrine: Denies: cold intolerance, polydipsia, weight gain. Neuro: Denies: confusion, dizziness, seizure, syncope. All systems rev neg: except as marked Objective Physical Exam Wound/incision: Location: sternal Site condition: edges approximated, incision intact HEENT: anicteric, mucosal membranes moist, pupils reactive to light Neck: full range of motion, non-tender Cardiovascular: irregular rhythm, normal heart sounds, regular rate rhythm Respiratory: decreased breath sounds, aerating well, symmetric expansion Abdomen: soft, non-tender Genitourinary: no bladder distention Extremities: dry, moves all Musculoskeletal: full range of motion Neuro/STONE BREAKER: alert, oriented X 3 Skin: dry, intact Psychiatry: normal affect, normal mood Diagnosis, Assessment Plan Hospital course to date: This is a pleasant 72 year old male with past medical history of hypertension, dyslipidemia, DM-2 (on insulin), former smoker (quit 2018), BPH, prostate CA s/p radiation, COPD (uses inhaler at home, no home oxygen), and PE (November 2022 on eliquis) who presented to [facility] with chest pain, dyspnea on exertion, and NSTEMI. Coronary angiogram was done and revealed severe multivessel coronary artery disease. Patient was then transferred to [facility] for CV surgery evaluation and need for CABG. 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 The surgery, risks involved, STS score, benefits, complications and alternatives were explained to the patient and his brother. He acknowledged understanding and is willing to proceed. We will tentatively schedule him for surgery tomorrow morning. Further recommendations to follow. 03/04/23 CABG x 4 (MCCORMICK-LAD,SVG-Leana, SVG-OM, SVG-PDA) ALAA EVH (LGSV) Posterior pericardiotomy 03/05/23 POD 1 Patient alert, awake, and oriented Labs and CXR reviewed On bipap 12/ 40%, wean off as tolerated Trend abgs Wean off levo as tolerated Keep both chest tubes Monitor strict I Os and renal function PT/OT, ambulate, OOB in chair DVT ppx with SCDs Monitor patient closely in CVICU 03/06/23 POD 2 Patient in stable condition CXR and labs reviewed HGB 6.6, transfuse 2 units PRBC Discontinue dopamine drip Echocardiogram Discontinue both chest tubes CR increasing, renal following, UOP 25 cc/hr OOB in chair Monitor closely in CVICU 03/07/23 POD 3 Patient alert, awake, and oriented, no complaints Labs and CXR reviewed On 2l nasal cannula, encourage I-S use Hgb stable 10.1 Discontinue left pleural chest tube On amio drip 0.5 Monitor renal function, Cr 2.9 Consult rehab Ambulate patient with PT/OT Keep patient in CVICU 03/08/23 POD 4 Patient recovering well CXR and labs reviewed Wean oxygen off as tolerated NSR, off amio drip, continue po Renal following, CR improving now 2.5 Encourage mobilization and I-S use Keep in CVICU 03/09/23 POD 5 Patient resting comfortable, out of bed in recliner On room air Encourage I-S use Diurese with lasix, CR 1.9 Monitor strict I Os Rehab consulted Keep central line and valencia PT/OT Monitor patient in CVICU 03/10/23 POD 6 AAOx3 Respiratory: On room air 97%, Encourage IS, Deep Breathing, CXR reviewed Cardiac: Remains sinus rhythm, pacing wires on standby GI: + BM, Continue Bowel regimen : DC Valencia today UO:1450, diuresing well. Continue PT/OT Disposition: Rehab versus home DVT prophylaxis Labs reveiwed- replace electrolytes as needed Patient seen and examined by Dr. Beyer. Plan of care discussed with multidisciplinary team DC neck line 03/11/23 POD 7 AAOx3 Complains of feeling anxious. Denies chest pains, denies shortness of breath Renal following started on Lasix 40 twice daily Cardiac: Remains sinus rhythm, pacing wires DC'd Will obtain echo Respiratory: On room air Patient declines inpatient rehab, patient states he will go home with his brother Will order home health with case management, patient states he will go home with his brother for support Patient was seen and examined by Dr. Beyer Restart home Prozac Continue PT OT, out of bed Needs more diuresing, renal following Home soon Consultants: anesthesiology, cardiology, cardiovascular surgery, critical/ director of search engine marketing, hospitalist at 1133 at 1837 RPT #:[id number] END OF REPORT [facility] 2023-03-10 11:50:00 [facility] ([facility] Critical Care Progress Note REPORT#:[id number] REPORT STATUS: Signed DATE:03/10/23 TIME: 1150 PATIENT: TEVIN NYE UNIT #: [id number] ROOM/BED: [place] [address] : 51 AGE: 72 SEX: M ATTEND: Luci Beyer MD ADM AUTHOR: Dina Mccain MD * ALL edits or amendments must be made on the electronic/computer document * Subjective Chief complaint: Chest pain/Unstable angina Wheezing Dyspnea Multivessel coronary artery disease Non-ST elevation UT Status post CABG x5 and ILAA Elective ventilator dependence Acute pulmonary insufficiency following major cardiothoracic surgery Acute blood loss anemia Metabolic acidosis Lactic acidosis Hypokalemia Hyperglycemia Chronic steroid dependence Severe left carotid stenosis History of severe COPD Constipation HPI: Patient seen and examined in CVICU room #2201 this morning and discussed during CT surgery rounds. No acute events were reported overnight. Patient is postop day 5 after CABG x5 and isolation of left atrial appendage. Postop course was complicated with acute kidney injury with a creatinine of 1.9 mg/dL. Patient also had severe metabolic acidosis that responded to multiple intravenous bicarb infusions. Urine output is adequate. Patient is off [...] isolation of left atrial appendage. He came out of the OR with norepinephrine at 4 mcg [...] dose was at 3:15 PM. Patient was given hydrocortisone 100 mg IV at 2:45 PM for chronic steroid dependence. He is currently on assist-control at 18 tidal volume 480 PEEP of 5 and 50% FiO2 and is moving tidal volumes at 470+. Vital signs are stable with heart rate 82 sinus rhythm, blood pressure 95/41 mmHg, pulse ox 100% while on 50% FiO2 and respiratory rate is 14. Chest tube output is minimal at 3 mm each. Patient was ordered albumin 25% to 50 mL. Pupils are bilaterally symmetrical and reactive to light measuring 3 mm on each side. Lab work upon arrival in the CVICU room # 2201 revealed a potassium of 3.3, glucose 230, creatinine 1.46 mg/dL, hemoglobin of 6.9 g/dL and hematocrit of 20%. Tevin Gonzalez is a 72 y.o. male with PMH of hypertension, dyslipidemia, diabetes, former smoker (quit 2008), BPH, prostate CA s/p radiation, COPD (uses inhaler at home, no home oxygen), and PE (November 2022 on eliquis) who presented to [facility] with chest pain, dyspnea on exertion, and NSTEMI. Coronary angiogram was done and revealed severe multivessel coronary artery disease. Patient was then transferred to [facility] for CV surgery evaluation and need for [...] isolation of left atrial appendage on 03/04/2023. Comments: Interval history- Patient is on 2 L. Wean down as tolerated. Had a bowel movement. Objective General VS/I O Last Documented: Result Date Time Pulse Ox 96 03/10 1100 B/P 139/58 07/ 1100 B/P Mean 81 / 1100 Pulse 66 07/ 1100 Resp 33 07/ 1100 Temp 36.4 03/10 0800 O2 Delivery Room air 03/10 0400 O2 Flow Rate 2 / 0356 FiO2 21 / 1906 24 hour I O ending at 0700: 03/10 0700 07/ 1900 Intake Total 530.00 1700 Output Total 1100 1470 Balance -570.00 230 Intake, IV 50.00 Intake, Oral 480 980 Intake, Oral 720 Supplement Number 1 2 Bowel Movements Output, Urine 1100 1470 Patient 88.4 kg Weight Weight Standing scale Measurement Method PATIENT WEIGHT: Weight (lb): 194 Weight (oz): 14.22 Weight (kg): 88.400 Medications: Active Meds + DC'd Last 24 Hrs Metoprolol Tartrate (LOPRESSOR) 25 MG Q12HR PO Furosemide [...] (LOPRESSOR) 12.5 MG Q12HR PO (DC) Ipratropium Idabel (ATROVENT) 500 MCG RTQ2H PRN PRN INH [...] ASDIR IV (CKD) Dextrose/Water (D5%W NON-DEHP) 250 ML Pantoprazole (PROTONIX) 40 MG DAILY@0600 PO Aspirin [...] ASDIR IV Dextrose/Water (DEXTROSE 5% WATER) 246 ML Glucagon (GLUCAGON) 1 MG ASDIR PRN IM Magnesium [...] 50 MEQ ASDIR PRN IV Post-op: day 5 Status post: CABG times 5 and ILAA Physical Exam Head/eyes: EOMI, PERRL ENT: moist mucosal membranes Cardiovascular: normal capillary refill, normal heart sounds, regular rate and rhythm, normal S1/S2 Respiratory: aerating well, clear to auscultation, symmetric expansion Abdomen: soft, non-tender Genitourinary: urinary catheter, no bladder distention Extremities: no clubbing, no cyanosis, no edema Musculoskeletal normal inspection Neuro/STONE BREAKER: alert, oriented X 3, CNII-XII intact, normal speech, reflexes equal bilat, no motor deficits, no sensory deficits Skin: dry, normal color, normal temperature, no rash Psychiatry: normal affect, normal judgment/insight, normal mood, not homicidal, not suicidal, no hallucinations Results Findings/data: Laboratory Tests 03/10 0315 Blood Gas Puncture Site [...] L Temperature (F) 97.2 O2 Delivery Device [facility] Laboratory Tests 03/10 03/10 03/10 03/09 [...] (1.80 - 2.40 mg/dL) 2.52 H 03/09 1540 Chemistry Sodium (134 - 147 mEq/L) [...] (Auto) (14.0 - 32.0 %) 6.5 L Grainger % (Auto) (4.8 - 9.0 %) 9.5 H Eos % (Auto) (0.3 - 3.7 %) 0.4 Baso % (Auto) (0.0 - 2.0 %) 0.2 Neut # (Auto) (2.0 - 7.6 x10 3/uL) 4.33 Lymph # (Auto) (1.0 - 3.8 x10 3/uL) 0.34 L Grainger # (Auto) (0.1 - 0.8 x10 3/uL) [...] 0.1 x10 3/uL) 0.00 Laboratory Tests 03/10/23 0315: [Embedded Image Not Available] 03/09/23 1540: [Embedded Image Not Available] Radiology data Recent Impressions: RADIOLOGY - XR CHEST 1 V 03/10 0514 Report Impression - Status: SIGNED Entered: 03/10/2023 0756 IMPRESSION: 1. Small to moderate bilateral pleural effusions. 2. Moderate pulmonary edema versus infiltrates, pneumonia. 3. Uhtq-bc-[id number] enlarged cardiac silhouette. Impression By: [email or web address] - David Espinal M.D. Diagnosis, Assessment Plan Free text A P: Problem List: Chest pain Wheezing Dyspnea Multivessel coronary artery disease Non-ST elevation UT Status post CABG x5 and ILAA Elective ventilator dependence Acute pulmonary insufficiency following major cardiothoracic surgery Acute blood loss anemia Metabolic acidosis Lactic acidosis Hypokalemia Hyperglycemia Chronic steroid dependence Severe left carotid stenosis History of severe COPD Constipation Assessment and Plan: Tevin Nye is a [...] isolation of left atrial appendage. He came out of the OR with norepinephrine at 4 mcg [...] dose was at 3:15 PM. Patient was given hydrocortisone 100 mg IV at 2:45 PM for chronic steroid dependence. He is currently on assist-control at 18 tidal volume 480 PEEP of 5 and 50% FiO2 and is moving tidal volumes at 470+. Vital signs are stable with heart rate 82 sinus rhythm, blood pressure 95/41 mmHg, pulse ox 100% while on 50% FiO2 and respiratory rate is 14. Chest tube output is minimal at 3 mm each. Patient was ordered albumin 25% to 50 mL. Pupils are bilaterally symmetrical and reactive to light measuring 3 mm on each side. Lab work upon arrival in the CVICU room # 2201 revealed a potassium of 3.3, glucose 230, creatinine 1.46 mg/dL, hemoglobin of 6.9 g/dL and hematocrit of 20%. Tevin Gonzalez is a 72 y.o. male with PMH of hypertension, dyslipidemia, diabetes, former smoker (quit 2008), BPH, prostate CA s/p radiation, COPD (uses inhaler at home, no home oxygen), and PE (November 2022 on eliquis) who presented to [facility] with chest pain, dyspnea on exertion, and NSTEMI. Coronary angiogram was done and revealed severe multivessel coronary artery disease. Patient was then transferred to [facility] for CV surgery evaluation and need for [...] postop day 0 after CABG x5 and ILAA Has severe left carotid stenosis Optimize systolic blood pressure to greater than 130 mmHg Patient was on chronic steroid therapy with Solu-Medrol Adrenal cortical support with hydrocortisone 25 mg IV every 8 hours Has acute blood loss anemia with a hemoglobin of 6.9 g/dL Transfuse 2 units of packed red cells Patient received Hydrocortisone 100 mg IV at 2:45 PM Start on Hydrocortisone 25 mg every 8 hours Also received parasternal block Currently on assist-control at 18 tidal volume 480 PEEP of 5 and 50% FiO2 Latest blood gas shows a pH of 7.28, pCO2 of 43 mmHg, pO2 of 175 mmHg and bicarbonate of 20 mmol with base excess at -6.5 Patient has been ordered 1 amp of sodium bicarbonate Recheck ABGs in 1 hour Chest tube output is minimal at 3 mL in both left pleural and mediastinal chest tube Blood pressure is low upon arrival at 95/41 mm of Hg Optimize blood pressure with Norepinephrine, titrate to a map of 70 or greater Avoid sedation Monitor chest tube output Pupils are bilaterally symmetrical and reactive to light measuring 3 mm on each side Replete potassium, check magnesium and ionized calcium Follow BMP Glycemic control with insulin drip, latest blood glucose is 230 mg/dL SCDs for DVT prophylaxis No[facility]zach Madrid [facility] 03/04/2023 6.32 PM 03/07/2023 Neurologically patient is at baseline. Pain well controlled On NC 2 L during the day and BiPAP at night. ABG and CXR reviewed. small right pleural effusion seen Continue duonebs, wean steroids to daily, pulmonary following In SR, stop amiodarone drip, continue beta she 12.5 mg metoprolol and amidoarone 400 BID LFTs within normal limits. Continue aspirin and Plavix. PPI daily. Discontinue the left pleural chest tube. No bowel movement yet. Abdomen soft. Give milk of mag. Creatinine is downtrending and is now 2.8. Continue to monitor the urine output. Renal following. Hold nephrotoxic medications. On insulin drip since he is on steroids. Continue to monitor for now. SCDs for DVT prophylaxis. Rehab evaluation Total critical care time 45 minutes excluding procedures 03/08/2023 Patient seen and examined in CVICU room #2201 this morning. Patient is postop day 4 after CABG x5 and isolation of left atrial appendage. No acute events reported overnight. Kidney function is improving and the creatinine is 2.5 mg/ dL this morning. Urine output was 550 mL overnight. Patient is on 2 L nasal cannula oxygen. He has history of COPD. Tolerating oral diet and having bowel movement. Patient has been able to ambulate with physical therapy. All drips have been discontinued. Blood pressure stable. Vital signs stable. Patient is awake, interactive, following commands and [...] isolation of left atrial appendage. He came out of the OR with norepinephrine at 4 mcg [...] dose was at 3:15 PM. Patient was given hydrocortisone 100 mg IV at 2:45 PM for chronic steroid dependence. He is currently on assist-control at 18 tidal volume 480 PEEP of 5 and 50% FiO2 and is moving tidal volumes at 470+. Vital signs are stable with heart rate 82 sinus rhythm, blood pressure 95/41 mmHg, pulse ox 100% while on 50% FiO2 and respiratory rate is 14. Chest tube output is minimal at 3 mm each. Patient was ordered albumin 25% to 50 mL. Pupils are bilaterally symmetrical and reactive to light measuring 3 mm on each side. Lab work upon arrival in the CVICU room # 2201 revealed a potassium of 3.3, glucose 230, creatinine 1.46 mg/dL, hemoglobin of 6.9 g/dL and hematocrit of 20%. Tevin Gonzalez is a 72 y.o. male with PMH of hypertension, dyslipidemia, diabetes, former smoker (quit 2008), BPH, prostate CA s/p radiation, COPD (uses inhaler at home, no home oxygen), and PE (November 2022 on eliquis) who presented to [facility] with chest pain, dyspnea on exertion, and NSTEMI. Coronary angiogram was done and revealed severe multivessel coronary artery disease. Patient was then transferred to [facility] for CV surgery evaluation and need for [...] x5 and isolation of left atrial appendage Extubated now, tolerating oral diet and having bowel movement Patient was able to ambulate with physical therapy Immediate postop course was complicated with unresponsiveness and requiring reversal of anesthetic agents Pupils were blown and 5 mm unreactive to light bilaterally Emergent CT scan of the head was unremarkable in the immediate postoperative. Patient had profound acidosis that was reversed with multiple bicarb infusions Eventually neurological status was resolved Patient is awake, interactive, following commands and moving all 4 extremities All drips have been discontinued Has severe COPD Not home oxygen dependent Currently on 2 L nasal cannula oxygen Assess need for home O2 requirement Developed acute kidney injury on CKD Creatinine is 2.5 mg/dL slightly improved from 2.7 mg/dL yesterday Urine output was 550 mL overnight Follow urine output and BMP Patient is tolerating oral diet Both chest tubes have been removed SCDs for DVT prophylaxis Noé Madrid MD [facility] 03/08/2023 9.42 AM 03/09/2023 Patient seen and examined in CVICU room #2201 this morning and discussed during CT surgery rounds. No acute events were reported overnight. Patient is postop day 5 after CABG x5 and isolation of left atrial appendage. Postop course was complicated with acute kidney injury with a creatinine of 1.9 mg/dL. Patient also had severe metabolic acidosis that responded to multiple intravenous bicarb infusions. Urine output is adequate. Patient is off [...] isolation of left atrial appendage. He came out of the OR with norepinephrine at 4 mcg [...] dose was at 3:15 PM. Patient was given hydrocortisone 100 mg IV at 2:45 PM for chronic steroid dependence. He is currently on assist-control at 18 tidal volume 480 PEEP of 5 and 50% FiO2 and is moving tidal volumes at 470+. Vital signs are stable with heart rate 82 sinus rhythm, blood pressure 95/41 mmHg, pulse ox 100% while on 50% FiO2 and respiratory rate is 14. Chest tube output is minimal at 3 mm each. Patient was ordered albumin 25% to 50 mL. Pupils are bilaterally symmetrical and reactive to light measuring 3 mm on each side. Lab work upon arrival in the CVICU room # 2201 revealed a potassium of 3.3, glucose 230, creatinine 1.46 mg/dL, hemoglobin of 6.9 g/dL and hematocrit of 20%. Tevin Gonzalez is a 72 y.o. male with PMH of hypertension, dyslipidemia, diabetes, former smoker (quit 2008), BPH, prostate CA s/p radiation, COPD (uses inhaler at home, no home oxygen), and PE (November 2022 on eliquis) who presented to [facility] with chest pain, dyspnea on exertion, and NSTEMI. Coronary angiogram was done and revealed severe multivessel coronary artery disease. Patient was then transferred to [facility] for CV surgery evaluation and need for [...] x5 and isolation of left atrial appendage Imaging postop course was complicated with acute kidney injury and severe metabolic acidosis Patient had bilaterally dilated and fixed pupils for a while till acidosis was corrected with multiple bicarbonate infusions and pushes after which she was able to recover neurologically Immediate CT scan of the head without contrast was unremarkable Patient is extubated now, ambulating with physical therapy, tolerating oral diet awaiting bowel movement He is still 6 kg heavier than admission weight of 83 kg weighing 89 today Patient required oxygen because of prior history of pulmonary fibrosis and COVID infection He is on room air now with oxygen saturation 93% Adequate urine output overnight Creatinine improved from 2.5 to 2 mg/deciliter yesterday and today stands at 1.9 mg/dL Patient will receive another dose of 40 mg Lasix IV Follow urine output and BMP Blood pressure is mildly elevated at 157/84 mmHg Patient was on amlodipine in the past We will restart amlodipine 5 mg PO daily as tolerated DC Valencia catheter Leave central venous catheter and art line for now Milk of magnesia for bowel movement Has anemia of acute blood loss Does not meet transfusion threshold at this time Awaiting placement SCDs for DVT prophylaxis Noé Madrid MD [facility] 03/09/2023 12.13 PM 03/10/2023 Neurologically patient is intact. Patient is on 2 L nasal cannula wean down as tolerated. ABG and chest x-ray reviewed. Does have a right pleural effusion. Continue diuresis. Increase Lasix to 40 IV twice daily. Renal following. Creatinine improving. Continue DuoNebs. Patient having bowel movements. Discontinue IJ Valencia and A-line. Sugars are controlled. We will stop Solu-Medrol. SCDs for DVT prophylaxis. On aspirin and Plavix. PPI daily. Rehab following. Total critical care time 33 minutes excluding procedures Consultants: anesthesiology, cardiology, cardiovascular surgery, critical/ director of search engine marketing, hospitalist at 1159 RPT #:[id number] END OF REPORT [facility] 2023-03-10 10:13:00 [facility] Nephrology Progress Note REPORT#:[id number] REPORT STATUS: Signed DATE:03/10/23 TIME: 1013 PATIENT: TEVIN NYE UNIT #: [id number] ROOM/BED: [place] [address] : 51 AGE: 72 SEX: M ATTEND: Luci Beyer MD ADM AUTHOR: Glendy Paz MD * ALL edits or amendments must be made on the electronic/computer document * Subjective Comments: Doing okay. Walked around the nurses station. Objective General VS/I O: Vital Signs: Date Time Temp Pulse Resp B/P B/P Pulse O2 O2 Flow FiO2 Mean Ox Delivery Rate 07/03 0900 68 26 171/75 107 98 07/03 0800 171/78 112 07/03 0800 97.6 80 29 193/76 113 95 07/03 0730 [...] scale Measurement Method PATIENT WEIGHT: Weight (lb): 194 Weight (oz): 14.22 Weight (kg): 88.400 Medications Active Meds + DC'd Last 24 Hrs Metoprolol Tartrate (LOPRESSOR) 25 MG Q12HR PO Furosemide [...] (LOPRESSOR) 12.5 MG Q12HR PO (DC) Ipratropium Idabel (ATROVENT) 500 MCG RTQ2H PRN PRN INH [...] ASDIR IV (CKD) Dextrose/Water (D5%W NON-DEHP) 250 ML Pantoprazole (PROTONIX) 40 MG DAILY@0600 PO Aspirin [...] ASDIR IV Dextrose/Water (DEXTROSE 5% WATER) 246 ML Glucagon (GLUCAGON) 1 MG ASDIR PRN IM Magnesium [...] BICARBONATE) 50 MEQ ASDIR PRN IV Physical Exam General appearance: alert, awake, oriented Head/eyes: atraumatic, normocephalic, PERRLA Neck: no JVD, no lymphadenopathy Cardiovascular: normal heart sounds, regular rate and rhythm, no rub Respiratory: decreased breath sounds, aerating well, no distress Abdomen: non-tender, normal bowel sounds, soft, no rebound Genitourinary: urinary catheter, urine Extremities: pitting edema, no gangrene Neuro/STONE BREAKER: alert, normal speech Results Findings/Data: Laboratory Tests 03/10 0315 Blood Gas Puncture Site [...] L Temperature (F) 97.2 O2 Delivery Device [facility] Laboratory Tests 03/10 03/10 03/10 03/09 [...] (Auto) (14.0 - 32.0 %) 6.5 L Grainger % (Auto) (4.8 - 9.0 %) 9.5 H Eos % (Auto) (0.3 - 3.7 %) 0.4 Baso % (Auto) (0.0 - 2.0 %) 0.2 Neut # (Auto) (2.0 - 7.6 x10 3/uL) 4.33 Lymph # (Auto) (1.0 - 3.8 x10 3/uL) 0.34 L Grainger # (Auto) (0.1 - 0.8 x10 3/uL) [...] (0.0 - 0.1 x10 3/uL) 0.00 Radiology data: Recent Impressions: RADIOLOGY - XR CHEST 1 V 03/10 0514 Report Impression - Status: SIGNED Entered: 03/10/2023 0734 IMPRESSION: 1. Small to moderate bilateral pleural effusions. 2. Moderate pulmonary edema versus infiltrates, pneumonia. 3. Nipm-mt-[id number] enlarged cardiac silhouette. Impression By: [email or web address] - David Espinal M.D. Diagnosis, Assessment Plan Free Text A P: 1. JERAMY likely ATN secondary to IV contrast. [...] abnormal left ventricular relaxation (grade 1 diastolic dysfunction). 2. Regional wall motion abnormality: Severe hypokinesis of the apical anterior, apical septal, apical lateral, and apical myocardium; hypokinesis of the basal-mid anteroseptal myocardium. 3. Right ventricle: Systolic pressure is moderately increased. 4. Mitral valve: There is mild regurgitation. 5. Tricuspid valve: Estimated right ventricular systolic pressure is 46 mmHg. There is moderate regurgitation. 6. Pericardium, extracardiac: A trivial pericardial effusion is identified. 7. Inferior vena cava: The vessel is dilated. The respirophasic diameter changes are in the normal range (= 50%). Inferior vena cava diameter is 2.1 cm. on 03/04/23 at 1717 at 1233 RPT #:[id number] END OF REPORT [facility] 2023-03-10 09:28:00 [facility] Pulmonology Progress Note REPORT#:[id number] REPORT STATUS: Signed DATE:03/10/23 TIME: 927 PATIENT: TEVIN NYE UNIT #: [id number] ROOM/BED: [place] [address] : 51 AGE: 72 SEX: M ATTEND: Luci Beyer MD ADM AUTHOR: Jonh Velasquez MD * ALL edits or amendments must be made on the electronic/computer document * Subjective Chief complaint: Chest pain Comments: Doing about the same Oxygen wean IJ remains in place ROS: no nausea/vomitting or chest pain Objective General VS/I O: Last Documented: Result Date Time B/P 171/78 03/10 [...] scale Measurement Method PATIENT WEIGHT: Weight (lb): 194 Weight (oz): 14.22 Weight (kg): 88.400 Physical Exam General appearance: chronically ill appearing Head/eyes: atraumatic, normocephalic, PERRL Neck: supple/no meningismus, no bruit/NL carotids, no JVD, no lymphadenopathy Cardiovascular: normal S1/S2, no rub, no gallop Respiratory/chest: decreased breath sounds, prolonged exp phase, wheezing, symmetric expansion Abdomen: soft, normal bowel sounds, no distention, no guarding Extremities: no clubbing, no cyanosis Neuro/STONE BREAKER: alert, oriented X 3, no motor deficits Skin: dry, normal color Psychiatry: normal affect, no hallucinations Results Findings/Data: Laboratory Tests 03/09/23 1540: [Embedded Image Not Available] 03/10/23 0315: [Embedded Image Not Available] Laboratory Tests 03/10 315 Blood Gas Puncture Site [...] L Temperature (F) 97.2 O2 Delivery Device [facility] Laboratory Tests 03/09 03/09 03/09 03/10 03/10 1028 1540 1939 0315 0315 Chemistry Sodium (134 - 147 mEq/L) 142 143 [...] (Auto) (14.0 - 32.0 %) 6.5 L Grainger % (Auto) (4.8 - 9.0 %) 9.5 H Eos % (Auto) (0.3 - 3.7 %) 0.4 Baso % (Auto) (0.0 - 2.0 %) 0.2 Neut # (Auto) (2.0 - 7.6 x10 3/uL) 4.33 Lymph # (Auto) (1.0 - 3.8 x10 3/uL) 0.34 L Grainger # (Auto) (0.1 - 0.8 x10 3/uL) [...] 3/uL) 0.00 Diagnosis, Assessment Plan Free Text A P: 1- Acute COPD exacerbation/postop respiratory insufficiency 2- Recent pulmonary embolism on Eliquis 3- NSTEMI/Multivessel coronary artery disease 5- Hypertension 6- History of tobacco use 7- Obesity 8- Acute renal failure 9- 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 Need repeat CT chest in 6-8 weeks. Patient informed - Monitor renal function, nephrology following. s/p Lasix 40 mg X1 - CXR noted with pulm edema-stable - PT/OT Overall improving at 0928 RPT #:[id number] END OF REPORT [facility] 2023-03-10 09:00:00 [facility] Rehab Progress Note REPORT#:[id number] REPORT STATUS: Signed DATE:03/10/23 TIME: 899 PATIENT: TEVIN NYE UNIT #: [id number] ROOM/BED: [place] [address] : 51 AGE: 72 SEX: M ATTEND: Luci Beyer MD ADM AUTHOR: Nicolasa Galeano PA-C * ALL edits or amendments must be made on the electronic/computer document * Subjective Chief complaint: Pt seen and examined. He is sitting up in the bedside chair. No acute distress. States still with SOB and panic attacks. On 1 liters NC. Objective General VS: Vital Signs: Date Time Temp Pulse Resp B/P B/P Pulse O2 O2 Flow FiO2 Mean Ox Delivery Rate / 0800 171/78 112 07/03 0800 80 29 [...] 136/62 89 92 PATIENT WEIGHT: Weight (lb): 194 Weight (oz): 14.22 Weight (kg): 88.400 Medications: Active Meds + DC'd Last 24 Hrs Metoprolol Tartrate (LOPRESSOR) 25 MG Q12HR PO Furosemide [...] (LOPRESSOR) 12.5 MG Q12HR PO (DC) Ipratropium Idabel (ATROVENT) 500 MCG RTQ2H PRN PRN INH [...] ASDIR IV (CKD) Dextrose/Water (D5%W NON-DEHP) 250 ML Pantoprazole (PROTONIX) 40 MG DAILY@0600 PO Aspirin [...] ASDIR IV Dextrose/Water (DEXTROSE 5% WATER) 246 ML Glucagon (GLUCAGON) 1 MG ASDIR PRN IM Magnesium [...] BICARBONATE) 50 MEQ ASDIR PRN IV Functional Progress Functional progress: ctherapy evals pending. Physical Exam General appearance: alert, awake HEENT: anicteric, mucosal membranes moist, sclera clear Neck: supple, no JVD Cardiovascular: regular rate rhythm, S1/S2 Respiratory: on oxygen (1 liter NC ), aerating well, clear bilaterally Abdomen: bowel sounds present, non-distended, soft, non-tender Skin: incision (C/D/I ), dry, intact, no rash Musculoskeletal - general: Musculoskeletal - general: swelling (ble), joints normal, normal muscle mass, range of motion normal, strength testing normal, no atrophy Neuro/STONE BREAKER: alert, oriented X 3, normal speech, no motor deficits, no sensory deficits Results Findings/Data: Laboratory Tests: 03/10 03/10 03/10 03/09 0831 0315 4688 0522 Blood Gas Puncture Site Art Line O2 [...] (Auto) (14.0 - 32.0 %) 6.5 L Grainger % (Auto) (4.8 - 9.0 %) 9.5 H Eos % (Auto) (0.3 - 3.7 %) 0.4 Baso % (Auto) (0.0 - 2.0 %) 0.2 Neut # (Auto) (2.0 - 7.6 x10 3/uL) 4.33 Lymph # (Auto) (1.0 - 3.8 x10 3/uL) 0.34 L Grainger # (Auto) (0.1 - 0.8 x10 3/uL) [...] (Man) (0.0 - 0.1 x10 3/uL) 0.00 03/09 03/09 1540 1028 Chemistry Sodium (134 [...] Calcium (8.0 - 10.5 mg/dL) 8.7 Radiology data: Recent Impressions: RADIOLOGY - XR CHEST 1 V 03/10 0514 Report Impression - Status: SIGNED Entered: 03/10/2023 7645 IMPRESSION: 1. Small to moderate bilateral pleural effusions. 2. Moderate pulmonary edema versus infiltrates, pneumonia. 3. Ztvi-xe-kpacpaxasp enlarged cardiac silhouette. Impression By: [email or web address] - David Espinal M.D. Diagnosis, Assessment Plan Free Text A P: Pt is a 72 yr old male admitted [...] you for allowing us to particapte in [facility] care of the pt. Will continue to follow. 03/10:PT /OT to follow. Making progress. He is on 1 liter. Giving diuretics. Pt wanting to DC home with HH now. Consultants: anesthesiology, cardiology, cardiovascular surgery, critical/ director of search engine marketing, hospitalist Rehab attestation: Face to face exam completed. Treatment plan discussed with patient. Meets continued stay criteria. Agree with interdisciplinary treatment plan. at 1446 RPT #:[id number] END OF REPORT [facility] 2023-03-10 06:54:00 [facility] Cardiology Progress Note REPORT#:[id number] REPORT STATUS: Signed DATE:03/10/23 TIME: 06 PATIENT: TEVIN NYE UNIT #: [id number] ROOM/BED: [place] [address] : 51 AGE: 72 SEX: M ATTEND: Luci Beyer MD ADM AUTHOR: Anuj Sylvester MD * ALL edits or amendments must be made on the electronic/computer document * Subjective Chief complaint: Better Objective General VS/I O: 24 hour I O ending at 0700: [...] Flow FiO2 Mean Ox Delivery Rate 07/03 0433 97.5 63 23 155/56 89 [...] 101 07/02 0730 94 Room air 21 03/09 0730 97.9 67 29 158/57 89 93 03/09 0700 169/73 105 03/09 0700 62 23 166/58 92 92 PATIENT WEIGHT: Weight (lb): 194 Weight (oz): 14.22 Weight (kg): 88.400 Medications: Active Meds + DC'd Last 24 Hrs Calcium Gluconate (Calcium Gluconate 1 GM/NS 50 [...] Tartrate (LOPRESSOR) 12.5 MG Q12HR PO Ipratropium Idabel (ATROVENT) 500 MCG RTQ2H PRN PRN INH [...] ASDIR IV (CKD) Dextrose/Water (D5%W NON-DEHP) 250 ML Pantoprazole (PROTONIX) 40 MG DAILY@0600 PO Aspirin [...] ASDIR IV Dextrose/Water (DEXTROSE 5% WATER) 246 ML Glucagon (GLUCAGON) 1 MG ASDIR PRN IM Magnesium [...] BICARBONATE) 50 MEQ ASDIR PRN IV Physical Exam General appearance: alert, awake Neck: full range of motion, non-tender, normal thyroid, supple/no meningismus, no bruit/NL carotids, no JVD, no lymphadenopathy, no masses or swelling Cardiovascular: CV assessment: regular rate and rhythm Respiratory: decreased breath sounds, clear to auscultation Abdomen: non-tender, normal bowel sounds, no distention, no guarding, no mass/ organomegaly, no pulsatile mass, no rebound Upper extremity: UE assessment: normal capillary refill, no edema Lower extremity: LE assessment: normal capillary refill, no edema Results Findings/Data: Laboratory Tests 03/10 0315 Blood Gas Puncture Site [...] L Temperature (F) 97.2 O2 Delivery Device [facility] Laboratory Tests 03/10 0315 1939 1540 1028 Chemistry Sodium (134 - 147 mEq/L) 143 142 [...] (Auto) (14.0 - 32.0 %) 6.5 L Grainger % (Auto) (4.8 - 9.0 %) 9.5 H Eos % (Auto) (0.3 - 3.7 %) 0.4 Baso % (Auto) (0.0 - 2.0 %) 0.2 Neut # (Auto) (2.0 - 7.6 x10 3/uL) 4.33 Lymph # (Auto) (1.0 - 3.8 x10 3/uL) 0.34 L Grainger # (Auto) (0.1 - 0.8 x10 3/uL) [...] (1.80 - 2.40 mg/dL) 2.52 H Radiology data: Recent Impressions: RADIOLOGY - XR CHEST 1 V 03/09 08 Report Impression - Status: SIGNED Entered: 03/09/2023817 IMPRESSION: No significant change in the lungs. Impression By: [email or web address] - Ezekiel Esteves M.D. 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 Free Text DxA P Notes Free Text DxA P Notes: 1- Severe COPD with exacerbation: As per Pulm 2- Recent pulmonary embolism on Eliquis 3- NSTEMI/Multivessel coronary artery disease: S/P CBBG, extubated and doing fair 5- Hypertension" Will increase Norvasc 10mg and increase Metoprolol to 55 BID 6- History of tobacco use 7. Wide complex tachy: Asymptomatic and suggests AFIB/SVT with aberrancy, now resolved. On po amio 8. Acute on chronic renal failure at 0656 RPT #:[id number] END OF REPORT [facility] 2023-03-10 05:54:00 [facility]) Cardiothoracic Surgery Prog REPORT#:[id number] REPORT STATUS: Signed DATE:03/10/23 TIME: 0554 PATIENT: TEVIN NYE UNIT #: [id number] ROOM/BED: [place] [address] : 51 AGE: 72 SEX: M ATTEND: Luci Beyer MD ADM AUTHOR: Evon Andrew Physic * ALL edits or amendments must be made on the electronic/computer document * General Post-op: day 6 Status post: 03/04/23 CABG x 4 (MCCORMICK-LAD,SVG-Leana, SVG-OM, SVG-PDA) ALAA EVH (LGSV) Posterior pericardiotomy Subjective Chief complaint: chest pain Follow up CABG Review of Systems Constitutional: Denies: chills, fatigue, generalized weakness. Skin: Denies: abrasion, bruising, laceration. Allergy/Immun: Denies: allergic reaction, anaphylaxis, rhinorrhea. Eyes: Denies: redness, visual loss/blurred, eye pain. ENT: Denies: ear ringing, throat swelling, toothache. Respiratory: Denies: [place]STON (dyspnea on exertion), pneumonia, SOB. Cardiovascular: Denies: chest pain, edema, orthopnea. GI: Denies: abdominal pain, anorexia, melena, nausea. : Denies: dysuria, flank pain. Musculoskeletal: Denies: arthritis, extremity pain, lumbar pain. Heme: Denies: adenopathy, bleeding, petechiae. Endocrine: Denies: cold intolerance, polydipsia, weight gain. Neuro: Denies: confusion, dizziness, seizure, syncope. All systems rev neg: except as marked Objective Physical Exam Wound/incision: Location: sternal Site condition: edges approximated, incision intact HEENT: anicteric, mucosal membranes moist, pupils reactive to light Neck: full range of motion, non-tender Cardiovascular: irregular rhythm, normal heart sounds, regular rate rhythm Respiratory: decreased breath sounds, aerating well, symmetric expansion Abdomen: soft, non-tender Genitourinary: no bladder distention Extremities: dry, moves all Musculoskeletal: full range of motion Neuro/STONE BREAKER: alert, oriented X 3 Skin: dry, intact Psychiatry: normal affect, normal mood Diagnosis, Assessment Plan Hospital course to date: This is a pleasant 72 year old male with past medical history of hypertension, dyslipidemia, DM-2 (on insulin), former smoker (quit 2018), BPH, prostate CA s/p radiation, COPD (uses inhaler at home, no home oxygen), and PE (November 2022 on eliquis) who presented to [facility] with chest pain, dyspnea on exertion, and NSTEMI. Coronary angiogram was done and revealed severe multivessel coronary artery disease. Patient was then transferred to [facility] for CV surgery evaluation and need for CABG. 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 The surgery, risks involved, STS score, benefits, complications and alternatives were explained to the patient and his brother. He acknowledged understanding and is willing to proceed. We will tentatively schedule him for surgery tomorrow morning. Further recommendations to follow. 03/04/23 CABG x 4 (MCCORMICK-LAD,SVG-Leana, SVG-OM, SVG-PDA) ZANE PEREA (LGSV) Posterior pericardiotomy 03/05/23 POD 1 Patient alert, awake, and oriented Labs and CXR reviewed On bipap 12/5 40%, wean off as tolerated Trend abgs Wean off levo as tolerated Keep both chest tubes Monitor strict I Os and renal function PT/OT, ambulate, OOB in chair DVT ppx with SCDs Monitor patient closely in CVICU 03/06/23 POD 2 Patient in stable condition CXR and labs reviewed HGB 6.6, transfuse 2 units PRBC Discontinue dopamine drip Echocardiogram Discontinue both chest tubes CR increasing, renal following, UOP 25 cc/hr OOB in chair Monitor closely in CVICU 03/07/23 POD 3 Patient alert, awake, and oriented, no complaints Labs and CXR reviewed On 2l nasal cannula, encourage I-S use Hgb stable 10.1 Discontinue left pleural chest tube On amio drip 0.5 Monitor renal function, Cr 2.9 Consult rehab Ambulate patient with PT/OT Keep patient in CVICU 03/08/23 POD 4 Patient recovering well CXR and labs reviewed Wean oxygen off as tolerated NSR, off amio drip, continue po Renal following, CR improving now 2.5 Encourage mobilization and I-S use Keep in CVICU 03/09/23 POD 5 Patient resting comfortable, out of bed in recliner On room air Encourage I-S use Diurese with lasix, CR 1.9 Monitor strict I Os Rehab consulted Keep central line and valencia PT/OT Monitor patient in CVICU 03/10/23 POD 6 AAOx3 Respiratory: On room air 97%, Encourage IS, Deep Breathing, CXR reviewed Cardiac: Remains sinus rhythm, pacing wires on standby GI: + BM, Continue Bowel regimen : DC Valencia today UO:1450, diuresing well. Continue PT/OT Disposition: Rehab versus home DVT prophylaxis Labs reveiwed- replace electrolytes as needed Patient seen and examined by Dr. Beyer. Plan of care discussed with multidisciplinary team DC neck line Consultants: anesthesiology, cardiology, cardiovascular surgery, critical/ director of search engine marketing, hospitalist at 1643 at 1841 RPT #:[id number] END OF REPORT [facility] 2023-03-09 11:44:00 [facility] ([facility]) Cardiology Progress Note REPORT#:[id number] REPORT STATUS: Signed DATE:03/09/23 TIME: 1144 PATIENT: TEVIN NYE UNIT #: [id number] ROOM/BED: [place] [address] : 51 AGE: 72 SEX: M ATTEND: Luci Beyer MD ADM AUTHOR: Willie Lorenzana MD * ALL edits or amendments must be made on the electronic/computer document * Subjective Chief complaint: Better Objective General VS/I O: 24 hour I O ending at 0700: 03/09 0700 07/ 1900 Intake Total 400 1471.00 Output Total 800 1645 Balance -400 -174.00 Intake, IV 31.00 Intake, Oral 400 720 Intake, Oral 720 Supplement Number 1 Bowel Movements Output, Urine 800 1645 Patient 89.8 kg Weight Weight Standing scale Measurement Method Vital Signs: Date Time Temp Pulse Resp B/P B/P Pulse O2 O2 Flow FiO2 Mean Ox Delivery Rate 07/02 1000 135/54 80 07/02 1000 36.3 61 [...] 0730 94 Room air 21 07/02 0730 36.6 67 29 158/57 89 93 [...] 28 cannula 07/1999 161/55 88 07/01 1999 37.1 64 20 [...] 1446 98 High flow 4 nasal cannula 07/ 1446 37.1 68 29 147/65 94 98 [...] 133/65 89 100 PATIENT WEIGHT: Weight (lb): 197 Weight (oz): 15.6 Weight (kg): 89.800 Medications: Active Meds + DC'd Last 24 Hrs Furosemide (LASIX 40 mg/4 mL INJECTION) 40 [...] Tartrate (LOPRESSOR) 12.5 MG Q12HR PO Ipratropium Idabel (ATROVENT) 500 MCG RTQ2H PRN PRN INH [...] ASDIR IV (CKD) Dextrose/Water (D5%W NON-DEHP) 250 ML Pantoprazole (PROTONIX) 40 MG DAILY@0600 PO Aspirin [...] ASDIR IV Dextrose/Water (DEXTROSE 5% WATER) 246 ML Glucagon (GLUCAGON) 1 MG ASDIR PRN IM Magnesium [...] BICARBONATE) 50 MEQ ASDIR PRN IV Physical Exam General appearance: alert, awake Neck: full range of motion, non-tender, normal thyroid, supple/no meningismus, no bruit/NL carotids, no JVD, no lymphadenopathy, no masses or swelling Cardiovascular: CV assessment: regular rate and rhythm Respiratory: decreased breath sounds, clear to auscultation Abdomen: non-tender, normal bowel sounds, no distention, no guarding, no mass/ organomegaly, no pulsatile mass, no rebound Upper extremity: UE assessment: normal capillary refill, no edema Lower extremity: LE assessment: normal capillary refill, no edema Results Findings/Data: Laboratory Tests 03/09 0202 Blood Gas Puncture Site [...] L Temperature (F) 98.3 O2 Delivery Device [facility] Laboratory Tests 03/09 03/09 03/09 03/09 [...] (Auto) (14.0 - 32.0 %) 4.6 L Grainger % (Auto) (4.8 - 9.0 %) 9.1 H Eos % (Auto) (0.3 - 3.7 %) 0.0 L Baso % (Auto) (0.0 - 2.0 %) 0.0 Neut # (Auto) (2.0 - 7.6 x10 3/uL) 4.81 Lymph # (Auto) (1.0 - 3.8 x10 3/uL) 0.26 L Grainger # (Auto) (0.1 - 0.8 x10 3/uL) [...] (1.80 - 2.40 mg/dL) 2.70 H Radiology data: Recent Impressions: RADIOLOGY - XR CHEST 1 V 03/09 0802 Report Impression - Status: SIGNED Entered: 03/09/2023 0818 IMPRESSION: No significant change in the lungs. Impression By: [email or web address] - Ezekiel Esteves M.D. Diagnosis, Assessment Plan Free Text DxA P Notes Free Text DxA P Notes: 1- Severe COPD with exacerbation: As per Pulm 2- Recent pulmonary embolism on Eliquis 3- NSTEMI/Multivessel coronary artery disease: S/P CBBG, extubated and doing fair 5- Hypertension" Will add Norvasc 5mg and increase Metoprolol to 25 BID 6- History of tobacco use 7. Wide complex tachy: Asymptomatic and suggests AFIB/SVT with aberrancy. Respomded to bolus of IV Amio. will increase po amio 8. Acute on chronic renal failure pt is stable discussed with cvicu nurse and pt / stable stable hemodynamics continue above plan discussed with pt an d icu nurse at 1146 RPT #:[id number] END OF REPORT [facility] 2023-03-09 10:30:00 [facility]) Pulmonology Progress Note REPORT#:[id number] REPORT STATUS: Signed DATE:03/09/23 TIME: 1030 PATIENT: TEVIN NYE UNIT #: [id number] ROOM/BED: [place] [address] : 51 AGE: 72 SEX: M ATTEND: Luci Beyer MD ADM AUTHOR: Jonh Velasquez MD * ALL edits or amendments must be made on the electronic/computer document * Subjective Chief complaint: Chest pain Comments: Feels much better Oxygen wean Plan for A-line removal today ROS: no nausea/vomitting or chest pain Objective General VS/I O: Last Documented: Result Date Time B/P 135/54 03/09 1000 B/P Mean 80 03/09 1000 Pulse Ox 92 03/09 1000 Temp 97.3 03/09 1000 Pulse 61 / 1000 Resp 25 03/09 1000 FiO2 21 03/09 0730 O2 Delivery Room air 03/09 0730 O2 Flow Rate 2 03/09 0314 24 hour I O ending at 0700: 07/01 1900 03/09 0700 Intake Total 1471.00 400 Output Total 1645 800 Balance -174.00 -400 Intake, IV 31.00 Intake, Oral 720 400 Intake, Oral 720 Supplement Number 1 Bowel Movements Output, Urine 1645 800 Patient 198 lb Weight Weight Standing scale Measurement Method PATIENT WEIGHT: Weight (lb): 197 Weight (oz): 15.6 Weight (kg): 89.800 Physical Exam General appearance: chronically ill appearing Head/eyes: atraumatic, normocephalic, PERRL Neck: supple/no meningismus, no bruit/NL carotids, no JVD, no lymphadenopathy Cardiovascular: normal S1/S2, no rub, no gallop Respiratory/chest: decreased breath sounds, prolonged exp phase, wheezing, symmetric expansion Abdomen: soft, normal bowel sounds, no distention, no guarding Extremities: no clubbing, no cyanosis Neuro/STONE BREAKER: alert, oriented X 3, no motor deficits Skin: dry, normal color Psychiatry: normal affect, no hallucinations Results Findings/Data: Laboratory Tests 03/08/23 1818: [Embedded Image Not Available] 03/09/23 0156: [Embedded Image Not Available] Laboratory Tests 03/09 202 Blood Gas Puncture Site Art Line O2 [...] L Temperature (F) 98.3 O2 Delivery Device [facility] Laboratory Tests 03/08 03/08 03/08 03/08 [...] 03/09 03/09 03/09 0034 0114 0156 0202 0403 Chemistry Sodium (134 - 147 mEq/L) 144 [...] (Auto) (14.0 - 32.0 %) 4.6 L Grainger % (Auto) (4.8 - 9.0 %) 9.1 H Eos % (Auto) (0.3 - 3.7 %) 0.0 L Baso % (Auto) (0.0 - 2.0 %) 0.0 Neut # (Auto) (2.0 - 7.6 x10 3/uL) 4.81 Lymph # (Auto) (1.0 - 3.8 x10 3/uL) 0.26 L Grainger # (Auto) (0.1 - 0.8 x10 3/uL) [...] 3/uL) 0.00 Diagnosis, Assessment Plan Free Text A P: 1- Acute COPD exacerbation/postop respiratory insufficiency 2- Recent pulmonary embolism on Eliquis 3- NSTEMI/Multivessel coronary artery disease 5- Hypertension 6- History of tobacco use 7- Obesity 8- Acute renal failure 9- 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 Need repeat CT chest in 6-8 weeks. Patient informed - Monitor renal function, nephrology following. s/p Lasix 40 mg X1 - CXR noted with pulm edema-stable - PT/OT at 1031 RPT #:[id number] END OF REPORT [facility] 2023-03-09 10:14:00 [facility] ([facility]) Nephrology Progress Note REPORT#:[id number] REPORT STATUS: Signed DATE:03/09/23 TIME: 1014 PATIENT: TEVIN NYE UNIT #: [id number] ROOM/BED: [address] : [address] AGE: 72 SEX: M ATTEND: Luci Beyer MD ADM AUTHOR: Glendy Paz MD * ALL edits or amendments must be made on the electronic/computer document * Subjective Comments: Sitting up in the chair, on room air. Doing very well Objective General VS/I O: Vital Signs: Date Time Temp Pulse Resp B/P B/P Pulse O2 O2 Flow FiO2 Mean Ox Delivery Rate 07/02 1000 135/54 80 07/02 1000 97.3 [...] 07/01 2047 94 Nasal 2 28 cannula /1999 161/55 88 07/01 1999 98.8 64 20 152/74 107 98 07/01 1900 98.2 07/01 1900 High flow 4 nasal cannula 07/ 1900 158/53 84 07/01 1900 98.8 66 [...] 133/62 89 98 07/01 1332 158/66 96 07/ 1332 99.0 69 24 158/68 98 100 07/ 1215 133/55 78 07/ 1215 99.1 62 28 116/60 81 99 07/01 1200 137/53 75 07/01 1200 99.1 61 25 109/58 79 99 07/01 1145 155/60 89 07/01 1145 99.1 61 25 133/65 89 100 07/ 1130 150/58 84 07/ 1130 99.0 58 27 132/65 92 99 07/01 1115 140/54 81 07/01 1115 99.0 60 23 125/58 86 97 07/ 1101 143/62 87 07/ 1101 99.0 59 8 159/73 109 100 07/ 1059 96 High flow 4 nasal cannula 07/ 1046 150/57 84 07/01 1046 99.0 60 21 147/70 100 99 07/01 1030 135/55 78 07/01 1030 99.0 59 26 119/59 84 98 07/01 1015 137/54 76 07/01 1015 99.0 54 20 122/58 84 99 24 hour I O ending at 0700: 07/02 0700 07/01 1900 Intake Total 400 1471.00 Output Total 800 1645 Balance -400 -174.00 Intake, IV 31.00 Intake, Oral 400 720 Intake, Oral 720 Supplement Number 1 Bowel Movements Output, Urine 800 1645 Patient 89.8 kg Weight Weight Standing scale Measurement Method PATIENT WEIGHT: Weight (lb): 197 Weight (oz): 15.6 Weight (kg): 89.800 Medications Active Meds + DC'd Last 24 Hrs Amlodipine Besylate (NORVASC) 5 MG DAILY PO [...] Tartrate (LOPRESSOR) 12.5 MG Q12HR PO Ipratropium Idabel (ATROVENT) 500 MCG RTQ2H PRN PRN INH [...] ASDIR IV (CKD) Dextrose/Water (D5%W NON-DEHP) 250 ML Pantoprazole (PROTONIX) 40 MG DAILY@0600 PO Aspirin [...] ASDIR IV Dextrose/Water (DEXTROSE 5% WATER) 246 ML Glucagon (GLUCAGON) 1 MG ASDIR PRN IM Insulin Human Regular (HumuLIN R) 100 UNIT ASDIR IV (DC) Sodium Chloride (SODIUM CHLORIDE 0.9%) 99 ML Magnesium Sulfate (MAGNESIUM SULFATE 4GM/SWFI 100ML) 100 [...] BICARBONATE) 50 MEQ ASDIR PRN IV Physical Exam General appearance: alert, awake, oriented Head/eyes: atraumatic, normocephalic, PERRLA Neck: no JVD, no lymphadenopathy Cardiovascular: normal heart sounds, regular rate and rhythm, no rub Respiratory: decreased breath sounds, aerating well, no distress Abdomen: non-tender, normal bowel sounds, soft, no rebound Genitourinary: urinary catheter, urine Extremities: pitting edema, no gangrene Neuro/STONE BREAKER: alert, normal speech Results Findings/Data: Laboratory Tests 03/09 0202 Blood Gas Puncture Site [...] Hemoglobin (12.5 - 16.9 G/DL) 11.1 L Hsayla Test N/A Sodium (134 - 147 mmol/L) 143 Potassium (3.4 - 5.0 mmol/L) 3.9 Chloride (100 - 108 mmol/L) 106 Ionized Calcium (1.12 - 1.32 MMOL/L) 1.17 Lactic Acid (0.9 - 1.7 mmol/l) 0.6 L Temperature (F) 98.3 O2 Delivery Device [facility] Laboratory Tests 03/09 03/09 03/09 03/09 [...] (Auto) (14.0 - 32.0 %) 4.6 L Grainger % (Auto) (4.8 - 9.0 %) 9.1 H Eos % (Auto) (0.3 - 3.7 %) 0.0 L Baso % (Auto) (0.0 - 2.0 %) 0.0 Neut # (Auto) (2.0 - 7.6 x10 3/uL) 4.81 Lymph # (Auto) (1.0 - 3.8 x10 3/uL) 0.26 L Grainger # (Auto) (0.1 - 0.8 x10 3/uL) [...] (0.0 - 0.1 x10 3/uL) 0.00 Radiology data: Recent Impressions: RADIOLOGY - XR CHEST 1 V 03/09 0802 Report Impression - Status: SIGNED Entered: 03/09/2023 0818 IMPRESSION: No significant change in the lungs. Impression By: BuckABDavid - Ezekiel Esteves M.D. Diagnosis, Assessment Plan Free Text A P: 1. JERAMY likely ATN secondary to IV contrast. Urine output improving. Sp NS at 75 cc/h for 1 L. Monitor respiratory status closely. Avoid nephrotoxic medications.creatinine improving at 3.1> 2.8>2.5 >1.9 today. Will give Lasix 40 mg IV [...] abnormal left ventricular relaxation (grade 1 diastolic dysfunction). 2. Regional wall motion abnormality: Severe hypokinesis of the apical anterior, apical septal, apical lateral, and apical myocardium; hypokinesis of the basal-mid anteroseptal myocardium. 3. Right ventricle: Systolic pressure is moderately increased. 4. Mitral valve: There is mild regurgitation. 5. Tricuspid valve: Estimated right ventricular systolic pressure is 46 mmHg. There is moderate regurgitation. 6. Pericardium, extracardiac: A trivial pericardial effusion is identified. 7. Inferior vena cava: The vessel is dilated. The respirophasic diameter changes are in the normal range (= 50%). Inferior vena cava diameter is 2.1 cm. on 03/04/23 at 1717 at 1230 RPT #:[id number] END OF REPORT [facility] 2023-03-09 09:40:00 [facility] Cardiothoracic Surgery Prog REPORT#:[id number] REPORT STATUS: Signed DATE:03/09/23 TIME: 939 PATIENT: TEVIN NYE UNIT #: [id number] ROOM/BED: [place] [address] : 51 AGE: 72 SEX: M ATTEND: Luci Beyer MD ADM AUTHOR: Luci Beyer MD * ALL edits or amendments must be made on the electronic/computer document * General Post-op: day 5 Status post: 03/04/23 CABG x 4 (MCCORMICK-LAD,SVG-Leana, SVG-OM, SVG-PDA) ALAA EVH (LGSV) Posterior pericardiotomy Subjective Chief complaint: chest pain Follow up CABG Review of Systems Constitutional: Denies: chills, fatigue, generalized weakness. Skin: Denies: abrasion, bruising, laceration. Allergy/Immun: Denies: allergic reaction, anaphylaxis, rhinorrhea. Eyes: Denies: redness, visual loss/blurred, eye pain. ENT: Denies: ear ringing, throat swelling, toothache. Respiratory: Denies: JOHNSTON (dyspnea on exertion), pneumonia, SOB. Cardiovascular: Denies: chest pain, edema, orthopnea. GI: Denies: abdominal pain, anorexia, melena, nausea. : Denies: dysuria, flank pain. Musculoskeletal: Denies: arthritis, extremity pain, lumbar pain. Heme: Denies: adenopathy, bleeding, petechiae. Endocrine: Denies: cold intolerance, polydipsia, weight gain. Neuro: Denies: confusion, dizziness, seizure, syncope. All systems rev neg: except as marked Objective General VS/I O Last Documented: Result Date Time B/P 130/61 03/09 900 B/P Mean 87 03/09 09 Pulse Ox 90 03/09 900 Temp 36.4 03/09 900 Pulse 62 03/09 0900 Resp 18 03/09 0900 FiO2 21 03/09 0730 O2 Delivery Room air 03/09 730 O2 Flow Rate 2 03/09 0314 24 hour I O ending at 0700: 03/09 0700 07 1900 Intake Total 400 1471.00 Output Total 800 1645 Balance -400 -174.00 Intake, IV 31.00 Intake, Oral 400 720 Intake, Oral 720 Supplement Number 1 Bowel Movements Output, Urine 800 1645 Patient 89.8 kg Weight Weight Standing scale Measurement Method PATIENT WEIGHT: Weight (lb): 197 Weight (oz): 15.6 Weight (kg): 89.800 Physical Exam General appearance: alert, awake, oriented Wound/incision: Location: sternal Site condition: edges approximated, incision intact HEENT: anicteric, mucosal membranes moist, pupils reactive to light Neck: full range of motion, non-tender Cardiovascular: irregular rhythm, normal heart sounds, regular rate rhythm Respiratory: decreased breath sounds, aerating well, symmetric expansion Abdomen: soft, non-tender Genitourinary: no bladder distention Extremities: dry, moves all Musculoskeletal: full range of motion Neuro/STONE BREAKER: alert, oriented X 3 Skin: dry, intact Psychiatry: normal affect, normal mood Current Medications Medications: Active Meds + DC'd Last 24 Hrs Amlodipine Besylate (NORVASC) 5 MG DAILY PO [...] Tartrate (LOPRESSOR) 12.5 MG Q12HR PO Ipratropium Idabel (ATROVENT) 500 MCG RTQ2H PRN PRN INH [...] ASDIR IV (CKD) Dextrose/Water (D5%W NON-DEHP) 250 ML Pantoprazole (PROTONIX) 40 MG DAILY@0600 PO Aspirin [...] ASDIR IV Dextrose/Water (DEXTROSE 5% WATER) 246 ML Glucagon (GLUCAGON) 1 MG ASDIR PRN IM Insulin Human Regular (HumuLIN R) 100 UNIT ASDIR IV (DC) Sodium Chloride (SODIUM CHLORIDE 0.9%) 99 ML Magnesium Sulfate (MAGNESIUM SULFATE 4GM/SWFI 100ML) 100 [...] (SODIUM BICARBONATE) 50 MEQ ASDIR PRN IV Results Findings/Data: Laboratory Tests 03/09 0202 Blood Gas Puncture Site [...] L Temperature (F) 98.3 O2 Delivery Device [facility] Laboratory Tests 03/09 03/09 03/09 03/09 [...] (Auto) (14.0 - 32.0 %) 4.6 L Grainger % (Auto) (4.8 - 9.0 %) 9.1 H Eos % (Auto) (0.3 - 3.7 %) 0.0 L Baso % (Auto) (0.0 - 2.0 %) 0.0 Neut # (Auto) (2.0 - 7.6 x10 3/uL) 4.81 Lymph # (Auto) (1.0 - 3.8 x10 3/uL) 0.26 L Grainger # (Auto) (0.1 - 0.8 x10 3/uL) [...] (0.0 - 0.1 x10 3/uL) 0.00 Radiology data: Recent Impressions: RADIOLOGY - XR CHEST 1 V 03/09 0802 Report Impression - Status: SIGNED Entered: 03/09/2023 0818 IMPRESSION: No significant change in the lungs. Impression By: Herlinda - Ezekiel Esteves M.D. Results: labs reviewed, vital signs stable, rythm personally rev'd, x-ray personally reviewed, current med profile rev'd Diagnosis, Assessment Plan Hospital course to date: This is a pleasant 72 year old male with past medical history of hypertension, dyslipidemia, DM-2 (on insulin), former smoker (quit 2018), BPH, prostate CA s/p radiation, COPD (uses inhaler at home, no home oxygen), and PE (November 2022 on eliquis) who presented to [facility] with chest pain, dyspnea on exertion, and NSTEMI. Coronary angiogram was done and revealed severe multivessel coronary artery disease. Patient was then transferred to [facility] for CV surgery evaluation and need for CABG. 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 The surgery, risks involved, STS score, benefits, complications and alternatives were explained to the patient and his brother. He acknowledged understanding and is willing to proceed. We will tentatively schedule him for surgery tomorrow morning. Further recommendations to follow. 03/04/23 CABG x 4 (MCCORMICK-LAD,SVG-Leana, SVG-OM, SVG-PDA) ALAA EVH (LGSV) Posterior pericardiotomy 03/05/23 POD 1 Patient alert, awake, and oriented Labs and CXR reviewed On bipap 08/12 40%, wean off as tolerated Trend abgs Wean off levo as tolerated Keep both chest tubes Monitor strict I Os and renal function PT/OT, ambulate, OOB in chair DVT ppx with SCDs Monitor patient closely in CVICU 03/06/23 POD 2 Patient in stable condition CXR and labs reviewed HGB 6.6, transfuse 2 units PRBC Discontinue dopamine drip Echocardiogram Discontinue both chest tubes CR increasing, renal following, UOP 25 cc/hr OOB in chair Monitor closely in CVICU 03/07/23 POD 3 Patient alert, awake, and oriented, no complaints Labs and CXR reviewed On 2l nasal cannula, encourage I-S use Hgb stable 10.1 Discontinue left pleural chest tube On amio drip 0.5 Monitor renal function, Cr 2.9 Consult rehab Ambulate patient with PT/OT Keep patient in CVICU 03/08/23 POD 4 Patient recovering well CXR and labs reviewed Wean oxygen off as tolerated NSR, off amio drip, continue po Renal following, CR improving now 2.5 Encourage mobilization and I-S use Keep in CVICU 03/09/23 POD 5 Patient resting comfortable, out of bed in recliner On room air Encourage I-S use Diurese with lasix, CR 1.9 Monitor strict I Os Rehab consulted Keep central line and valencia PT/OT Monitor patient in CVICU Consultants: anesthesiology, cardiology, cardiovascular surgery, critical/ director of search engine marketing, hospitalist at [id number] RPT #:[id number] END OF REPORT [facility] 2023-03-09 08:59:00 [facility] ([facility]) Critical Care Progress Note REPORT#:[id number] REPORT STATUS: Signed DATE:03/09/23 TIME: 0859 PATIENT: TEVIN NYE UNIT #: [id number] ROOM/BED: [place] [address] : 51 AGE: 72 SEX: M ATTEND: Luci Beyer MD ADM AUTHOR: Noé Madrid MD * ALL edits or amendments must be made on the electronic/computer document * Subjective Chief complaint: Chest pain/Unstable angina Wheezing Dyspnea Multivessel coronary artery disease Non-ST elevation UT Status post CABG x5 and ILAA Elective ventilator dependence Acute pulmonary insufficiency following major cardiothoracic surgery Acute blood loss anemia Metabolic acidosis Lactic acidosis Hypokalemia Hyperglycemia Chronic steroid dependence Severe left carotid stenosis History of severe COPD Constipation HPI: Patient seen and examined in CVICU room #2201 this morning and discussed during CT surgery rounds. No acute events were reported overnight. Patient is postop day 5 after CABG x5 and isolation of left atrial appendage. Postop course was complicated with acute kidney injury with a creatinine of 1.9 mg/dL. Patient also had severe metabolic acidosis that responded to multiple intravenous bicarb infusions. Urine output is adequate. Patient is off [...] isolation of left atrial appendage. He came out of the OR with norepinephrine at 4 mcg [...] dose was at 3:15 PM. Patient was given hydrocortisone 100 mg IV at 2:45 PM for chronic steroid dependence. He is currently on assist-control at 18 tidal volume 480 PEEP of 5 and 50% FiO2 and is moving tidal volumes at 470+. Vital signs are stable with heart rate 82 sinus rhythm, blood pressure 95/41 mmHg, pulse ox 100% while on 50% FiO2 and respiratory rate is 14. Chest tube output is minimal at 3 mm each. Patient was ordered albumin 25% to 50 mL. Pupils are bilaterally symmetrical and reactive to light measuring 3 mm on each side. Lab work upon arrival in the CVICU room # 2201 revealed a potassium of 3.3, glucose 230, creatinine 1.46 mg/dL, hemoglobin of 6.9 g/dL and hematocrit of 20%. Tevin Gonzalez is a 72 y.o. male with PMH of hypertension, dyslipidemia, diabetes, former smoker (quit 2008), BPH, prostate CA s/p radiation, COPD (uses inhaler at home, no home oxygen), and PE (November 2022 on eliquis) who presented to [facility] with chest pain, dyspnea on exertion, and NSTEMI. Coronary angiogram was done and revealed severe multivessel coronary artery disease. Patient was then transferred to [facility] for CV surgery evaluation and need for [...] of left atrial appendage on 03/04/2023. Patient reports: No: abdominal pain, bowel movement, diarrhea, fever, headache, shortness of breath, vomiting. Nursing reports: Yes: constipation. No: abdominal pain, agitated, bowel movement, confusion, delirium, diarrhea, fever, headache, shortness of breath, vomiting. Review of Systems Constitutional: Denies: fatigue, fever. Skin: Denies: diaphoresis, ecchymosis, rash. Allergy/Immun: Denies: anaphylaxis, hives. Eyes: Denies: redness, discharge. ENT: Denies: nose bleeding, throat swelling, tongue swelling. Respiratory: Denies: JOHNSTON (dyspnea on exertion), hemoptysis, SOB, wheezing. Cardiovascular: Denies: JOHNSTON (dyspnea on exertion), edema. GI: Reports: constipation. Denies: abdominal pain, anorexia, dysphagia, hematemesis , hematochezia, hiatal hernia, nausea, vomiting. : Denies: hematuria, nocturia. Heme: Denies: bleeding, bruising. Endocrine: Denies: polydipsia, polyphagia. Neuro: Denies: confusion, dizziness, focal weakness, seizure. Psych: Denies: delusional, depression, insomnia. Objective General VS/I O Last Documented: Result Date Time B/P 130/61 03/09 0900 B/P Mean 87 03/09 0900 Pulse Ox 90 03/09 0900 Temp 36.4 03/09 0900 Pulse 62 03/09 0900 Resp 18 [...] scale Measurement Method PATIENT WEIGHT: Weight (lb): 197 Weight (oz): 15.6 Weight (kg): 89.800 Medications: Active Meds + DC'd Last 24 Hrs Amlodipine Besylate (NORVASC) 5 MG DAILY PO [...] Tartrate (LOPRESSOR) 12.5 MG Q12HR PO Ipratropium Idabel (ATROVENT) 500 MCG RTQ2H PRN PRN INH [...] ASDIR IV (CKD) Dextrose/Water (D5%W NON-DEHP) 250 ML Pantoprazole (PROTONIX) 40 MG DAILY@0600 PO Aspirin [...] ASDIR IV Dextrose/Water (DEXTROSE 5% WATER) 246 ML Glucagon (GLUCAGON) 1 MG ASDIR PRN IM Insulin Human Regular (HumuLIN R) 100 UNIT ASDIR IV (DC) Sodium Chloride (SODIUM CHLORIDE 0.9%) 99 ML Magnesium Sulfate (MAGNESIUM SULFATE 4GM/SWFI 100ML) 100 [...] 50 MEQ ASDIR PRN IV Post-op: day 5 Status post: CABG times 5 and ILAA Physical Exam General appearance: alert, awake, oriented, no acute distress, pleasant, conversational, mental status normal, no respiratory distress Head/eyes: EOMI, PERRL ENT: moist mucosal membranes Cardiovascular: normal capillary refill, normal heart sounds, regular rate and rhythm, normal S1/S2 Respiratory: aerating well, clear to auscultation, symmetric expansion Abdomen: soft, non-tender Genitourinary: urinary catheter, no bladder distention Extremities: no clubbing, no cyanosis, no edema Musculoskeletal normal inspection Neuro/STONE BREAKER: alert, oriented X 3, CNII-XII intact, normal speech, reflexes equal bilat, no motor deficits, no sensory deficits Skin: dry, normal color, normal temperature, no rash Psychiatry: normal affect, normal judgment/insight, normal mood, not homicidal, not suicidal, no hallucinations Results Findings/data: Laboratory Tests 03/09 202 Blood Gas Puncture Site Art Line O2 [...] L Temperature (F) 98.3 O2 Delivery Device [facility] Laboratory Tests 03/09 03/09 03/09 03/09 [...] (Auto) (14.0 - 32.0 %) 4.6 L Grainger % (Auto) (4.8 - 9.0 %) 9.1 H Eos % (Auto) (0.3 - 3.7 %) 0.0 L Baso % (Auto) (0.0 - 2.0 %) 0.0 Neut # (Auto) (2.0 - 7.6 x10 3/uL) 4.81 Lymph # (Auto) (1.0 - 3.8 x10 3/uL) 0.26 L Grainger # (Auto) (0.1 - 0.8 x10 3/uL) [...] 0.1 x10 3/uL) 0.00 Laboratory Tests 03/09/23 0156: [Embedded Image Not Available] 03/08/23 1818: [Embedded Image Not Available] Radiology data Recent Impressions: RADIOLOGY - XR CHEST 1 V 03/09 802 Report Impression - Status: SIGNED Entered: 03/09/2023 0818 IMPRESSION: No significant change in the lungs. Impression By: Herlinda Esteves M.D. Results: labs reviewed, vital signs reviewed, rhythm personally rev'd, current med profile rev'd Diagnosis, Assessment Plan Free text A P: Problem List: Chest pain Wheezing Dyspnea Multivessel coronary artery disease Non-ST elevation UT Status post CABG x5 and ILAA Elective ventilator dependence Acute pulmonary insufficiency following major cardiothoracic surgery Acute blood loss anemia Metabolic acidosis Lactic acidosis Hypokalemia Hyperglycemia Chronic steroid dependence Severe left carotid stenosis History of severe COPD Constipation Assessment and Plan: Tevin Nye is a [...] isolation of left atrial appendage. He came out of the OR with norepinephrine at 4 mcg [...] dose was at 3:15 PM. Patient was given hydrocortisone 100 mg IV at 2:45 PM for chronic steroid dependence. He is currently on assist-control at 18 tidal volume 480 PEEP of 5 and 50% FiO2 and is moving tidal volumes at 470+. Vital signs are stable with heart rate 82 sinus rhythm, blood pressure 95/41 mmHg, pulse ox 100% while on 50% FiO2 and respiratory rate is 14. Chest tube output is minimal at 3 mm each. Patient was ordered albumin 25% to 50 mL. Pupils are bilaterally symmetrical and reactive to light measuring 3 mm on each side. Lab work upon arrival in the CVICU room # 2201 revealed a potassium of 3.3, glucose 230, creatinine 1.46 mg/dL, hemoglobin of 6.9 g/dL and hematocrit of 20%. Tevin Gonzalez is a 72 y.o. male with PMH of hypertension, dyslipidemia, diabetes, former smoker (quit 2008), BPH, prostate CA s/p radiation, COPD (uses inhaler at home, no home oxygen), and PE (November 2022 on eliquis) who presented to [facility] with chest pain, dyspnea on exertion, and NSTEMI. Coronary angiogram was done and revealed severe multivessel coronary artery disease. Patient was then transferred to [facility] for CV surgery evaluation and need for [...] postop day 0 after CABG x5 and ILAA Has severe left carotid stenosis Optimize systolic blood pressure to greater than 130 mmHg Patient was on chronic steroid therapy with Solu-Medrol Adrenal cortical support with hydrocortisone 25 mg IV every 8 hours Has acute blood loss anemia with a hemoglobin of 6.9 g/dL Transfuse 2 units of packed red cells Patient received Hydrocortisone 100 mg IV at 2:45 PM Start on Hydrocortisone 25 mg every 8 hours Also received parasternal block Currently on assist-control at 18 tidal volume 480 PEEP of 5 and 50% FiO2 Latest blood gas shows a pH of 7.28, pCO2 of 43 mmHg, pO2 of 175 mmHg and bicarbonate of 20 mmol with base excess at -6.5 Patient has been ordered 1 amp of sodium bicarbonate Recheck ABGs in 1 hour Chest tube output is minimal at 3 mL in both left pleural and mediastinal chest tube Blood pressure is low upon arrival at 95/41 mm of Hg Optimize blood pressure with Norepinephrine, titrate to a map of 70 or greater Avoid sedation Monitor chest tube output Pupils are bilaterally symmetrical and reactive to light measuring 3 mm on each side Replete potassium, check magnesium and ionized calcium Follow BMP Glycemic control with insulin drip, latest blood glucose is 230 mg/dL SCDs for DVT prophylaxis Noé Madrid MD [facility] 03/04/2023 6.32 PM 03/07/2023 Neurologically patient is at baseline. Pain well controlled On NC 2 L during the day and BiPAP at night. ABG and CXR reviewed. small right pleural effusion seen Continue duonebs, wean steroids to daily, pulmonary following In SR, stop amiodarone drip, continue beta she 12.5 mg metoprolol and amidoarone 400 BID LFTs within normal limits. Continue aspirin and Plavix. PPI daily. Discontinue the left pleural chest tube. No bowel movement yet. Abdomen soft. Give milk of mag. Creatinine is downtrending and is now 2.8. Continue to monitor the urine output. Renal following. Hold nephrotoxic medications. On insulin drip since he is on steroids. Continue to monitor for now. SCDs for DVT prophylaxis. Rehab evaluation Total critical care time 45 minutes excluding procedures 03/08/2023 Patient seen and examined in CVICU room #2201 this morning. Patient is postop day 4 after CABG x5 and isolation of left atrial appendage. No acute events reported overnight. Kidney function is improving and the creatinine is 2.5 mg/ dL this morning. Urine output was 550 mL overnight. Patient is on 2 L nasal cannula oxygen. He has history of COPD. Tolerating oral diet and having bowel movement. Patient has been able to ambulate with physical therapy. All drips have been discontinued. Blood pressure stable. Vital signs stable. Patient is awake, interactive, following commands and [...] isolation of left atrial appendage. He came out of the OR with norepinephrine at 4 mcg [...] dose was at 3:15 PM. Patient was given hydrocortisone 100 mg IV at 2:45 PM for chronic steroid dependence. He is currently on assist-control at 18 tidal volume 480 PEEP of 5 and 50% FiO2 and is moving tidal volumes at 470+. Vital signs are stable with heart rate 82 sinus rhythm, blood pressure 95/41 mmHg, pulse ox 100% while on 50% FiO2 and respiratory rate is 14. Chest tube output is minimal at 3 mm each. Patient was ordered albumin 25% to 50 mL. Pupils are bilaterally symmetrical and reactive to light measuring 3 mm on each side. Lab work upon arrival in the CVICU room # 2201 revealed a potassium of 3.3, glucose 230, creatinine 1.46 mg/dL, hemoglobin of 6.9 g/dL and hematocrit of 20%. Tevin Gonzalez is a 72 y.o. male with PMH of hypertension, dyslipidemia, diabetes, former smoker (quit 2008), BPH, prostate CA s/p radiation, COPD (uses inhaler at home, no home oxygen), and PE (November 2022 on eliquis) who presented to [facility] with chest pain, dyspnea on exertion, and NSTEMI. Coronary angiogram was done and revealed severe multivessel coronary artery disease. Patient was then transferred to [facility] for CV surgery evaluation and need for [...] x5 and isolation of left atrial appendage Extubated now, tolerating oral diet and having bowel movement Patient was able to ambulate with physical therapy Immediate postop course was complicated with unresponsiveness and requiring reversal of anesthetic agents Pupils were blown and 5 mm unreactive to light bilaterally Emergent CT scan of the head was unremarkable in the immediate postoperative. Patient had profound acidosis that was reversed with multiple bicarb infusions Eventually neurological status was resolved Patient is awake, interactive, following commands and moving all 4 extremities All drips have been discontinued Has severe COPD Not home oxygen dependent Currently on 2 L nasal cannula oxygen Assess need for home O2 requirement Developed acute kidney injury on CKD Creatinine is 2.5 mg/dL slightly improved from 2.7 mg/dL yesterday Urine output was 550 mL overnight Follow urine output and BMP Patient is tolerating oral diet Both chest tubes have been removed SCDs for DVT prophylaxis Noé Madrid MD [facility] 03/08/2023 9.42 AM 03/09/2023 Patient seen and examined in CVICU room #2201 this morning and discussed during CT surgery rounds. No acute events were reported overnight. Patient is postop day 5 after CABG x5 and isolation of left atrial appendage. Postop course was complicated with acute kidney injury with a creatinine of 1.9 mg/dL. Patient also had severe metabolic acidosis that responded to multiple intravenous bicarb infusions. Urine output is adequate. Patient is off [...] isolation of left atrial appendage. He came out of the OR with norepinephrine at 4 mcg [...] dose was at 3:15 PM. Patient was given hydrocortisone 100 mg IV at 2:45 PM for chronic steroid dependence. He is currently on assist-control at 18 tidal volume 480 PEEP of 5 and 50% FiO2 and is moving tidal volumes at 470+. Vital signs are stable with heart rate 82 sinus rhythm, blood pressure 95/41 mmHg, pulse ox 100% while on 50% FiO2 and respiratory rate is 14. Chest tube output is minimal at 3 mm each. Patient was ordered albumin 25% to 50 mL. Pupils are bilaterally symmetrical and reactive to light measuring 3 mm on each side. Lab work upon arrival in the CVICU room # 2201 revealed a potassium of 3.3, glucose 230, creatinine 1.46 mg/dL, hemoglobin of 6.9 g/dL and hematocrit of 20%. Tevin Escobar Lisa is a 72 y.o. male with PMH of hypertension, dyslipidemia, diabetes, former smoker (quit 2008), BPH, prostate CA s/p radiation, COPD (uses inhaler at home, no home oxygen), and PE (November 2022 on eliquis) who presented to [facility] with chest pain, dyspnea on exertion, and NSTEMI. Coronary angiogram was done and revealed severe multivessel coronary artery disease. Patient was then transferred to [facility] for CV surgery evaluation and need for [...] x5 and isolation of left atrial appendage Imaging postop course was complicated with acute kidney injury and severe metabolic acidosis Patient had bilaterally dilated and fixed pupils for a while till acidosis was corrected with multiple bicarbonate infusions and pushes after which she was able to recover neurologically Immediate CT scan of the head without contrast was unremarkable Patient is extubated now, ambulating with physical therapy, tolerating oral diet awaiting bowel movement He is still 6 kg heavier than admission weight of 83 kg weighing 89 today Patient required oxygen because of prior history of pulmonary fibrosis and COVID infection He is on room air now with oxygen saturation 93% Adequate urine output overnight Creatinine improved from 2.5 to 2 mg/deciliter yesterday and today stands at 1.9 mg/dL Patient will receive another dose of 40 mg Lasix IV Follow urine output and BMP Blood pressure is mildly elevated at 157/84 mmHg Patient was on amlodipine in the past We will restart amlodipine 5 mg PO daily as tolerated DC Valencia catheter Leave central venous catheter and art line for now Milk of magnesia for bowel movement Has anemia of acute blood loss Does not meet transfusion threshold at this time Awaiting placement SCDs for DVT prophylaxis Noé Madrid MD [facility] 03/09/2023 12.13 PM Consultants: anesthesiology, cardiology, cardiovascular surgery, critical/ director of search engine marketing, hospitalist Code status: full code Plan discussed with: patient, consultants, nurse Critical care time: Minutes: 40 at 1424 RPT #:[id number] END OF REPORT [facility] 2023-03-08 15:31:00 [facility] Pulmonology Progress Note REPORT#:[id number] REPORT STATUS: Signed DATE:03/08/23 TIME: 1531 PATIENT: TEVIN NYE UNIT #: [id number] ROOM/BED: [place] [address] : 51 AGE: 72 SEX: M ATTEND: Luci Beyer MD ADM AUTHOR: Sharmila Alan * ALL edits or amendments must be made on the electronic/computer document * Subjective Comments: On NC, feels better, no new complaints ROS All systems rev neg: except as marked Objective General VS/I O: Last Documented: Result Date Time B/P 171/58 03/08 1500 B/P Mean 88 / 1500 Pulse Ox 95 / 1500 Temp 37.1 / 1500 Pulse 66 / 1500 Resp 23 03/08 1500 O2 Delivery High flow nasal cannula 03/08 1059 O2 Flow Rate 4 07/01 1059 FiO2 40 03/08 0358 24 hour I O ending at 0700: 03/08 0700 06 1900 Intake Total 214.00 1647.00 Output Total 550 760 Balance -336.00 887.00 Intake, IV 14.00 87.00 Intake, Oral 200 1560 Output, Chest 80 Tube Drainage Output, Urine 550 680 Patient 89.9 kg Weight Weight Bed scale Measurement Method PATIENT WEIGHT: Weight (lb): 198 Weight (oz): 3.13 Weight (kg): 89.900 Medications: Active Meds + DC'd Last 24 Hrs Insulin Human Lispro (HUMALOG) 0 AC HS SUBQ Furosemide (LASIX 40 mg/4 mL INJECTION) 40 MG ONCE ONE IV (DC) Methylprednisolone Sodium Succinate (Solu-Medrol 40 MG Vial) 20 MG DAILY IV Metoprolol Tartrate (LOPRESSOR) 12.5 MG Q12HR PO Ipratropium Idabel (ATROVENT) 500 MCG RTQ2H PRN PRN INH [...] ASDIR IV (CKD) Dextrose/Water (D5%W NON-DEHP) 250 ML Pantoprazole (PROTONIX) 40 MG DAILY@0600 PO Aspirin (ASPIRIN) 81 MG DAILY PO Docusate Sodium (COLACE) 100 MG BID PO Sennosides (Senna Lax 8.6 MG TABLET) 17.2 MG BEDTIME PO Ipratropium Idabel (ATROVENT) 500 MCG RTQ4H INH (DC) Acetaminophen [...] ASDIR IV Dextrose/Water (DEXTROSE 5% WATER) 246 ML Glucagon (GLUCAGON) 1 MG ASDIR PRN IM Insulin Human Regular (HumuLIN R) 100 UNIT ASDIR IV (DC) Sodium Chloride (SODIUM CHLORIDE 0.9%) 99 ML Magnesium Sulfate (MAGNESIUM SULFATE 4GM/SWFI 100ML) 100 [...] BICARBONATE) 50 MEQ ASDIR PRN IV Physical Exam General appearance: alert, awake, oriented, no acute distress Head/eyes: atraumatic, normocephalic, PERRL Neck: supple/no meningismus, no bruit/NL carotids, no JVD, no lymphadenopathy Cardiovascular: normal S1/S2, no rub, no gallop Respiratory/chest: decreased breath sounds, prolonged exp phase, wheezing, symmetric expansion Abdomen: soft, normal bowel sounds, no distention, no guarding Extremities: no clubbing, no cyanosis Neuro/STONE BREAKER: alert, oriented X 3, no motor deficits Skin: dry, normal color Psychiatry: normal affect, no hallucinations Results Findings/Data: Laboratory Tests 03/08/23 0203: [Embedded Image Not Available] 03/07/23 1736: [Embedded Image Not Available] Laboratory Tests 03/08 209 Blood Gas Puncture Site [...] L Temperature (F) 98.2 O2 Delivery Device [facility] Laboratory Tests 03/08 03/08 03/08 03/08 [...] (Auto) (14.0 - 32.0 %) 3.9 L Grainger % (Auto) (4.8 - 9.0 %) 8.6 Eos % (Auto) (0.3 - 3.7 %) 0.0 L Baso % (Auto) (0.0 - 2.0 %) 0.2 Neut # (Auto) (2.0 - 7.6 x10 3/uL) 5.39 Lymph # (Auto) (1.0 - 3.8 x10 3/uL) 0.24 L Grainger # (Auto) (0.1 - 0.8 x10 3/uL) [...] (0.0 - 0.1 x10 3/uL) 0.00 Radiology data: Recent Impressions: RADIOLOGY - XR CHEST 1 V 03/08 819 Report Impression - Status: SIGNED Entered: 03/08/2023835 IMPRESSION: Unchanged appearance of the lungs. Impression By: BuckABDavid - Ezekiel Esteves M.D. 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 Need repeat CT chest in 6-8 weeks. Patient informed - Monitor renal function, nephrology following. s/p Lasix 40 mg X1 - CXR noted with pulm edema-stable - PT/OT at 1533 RPT #:[id number] END OF REPORT [facility] 2023-03-08 15:11:00 [facility] Cardiothoracic Surgery Prog REPORT#:[id number] REPORT STATUS: Signed DATE:03/08/23 TIME: 1510 PATIENT: TEVIN NYE UNIT #: [id number] ROOM/BED: [place] [address] : 51 AGE: 72 SEX: M ATTEND: Luci Beyer MD ADM AUTHOR: Luci Beyer MD * ALL edits or amendments must be made on the electronic/computer document * General Post-op: day 4 Status post: 03/04/23 CABG x 4 (MCCORMICK-LAD,SVG-Leana, SVG-OM, SVG-PDA) ALAA EVH (LGSV) Posterior pericardiotomy Subjective Chief complaint: chest pain Follow up CABG Review of Systems Constitutional: Denies: chills, fatigue, generalized weakness. Skin: Denies: abrasion, bruising, laceration. Allergy/Immun: Denies: allergic reaction, anaphylaxis, rhinorrhea. Eyes: Denies: redness, visual loss/blurred, eye pain. ENT: Denies: ear ringing, throat swelling, toothache. Respiratory: Denies: [place] (dyspnea on exertion), pneumonia, SOB. Cardiovascular: Denies: chest pain, edema, orthopnea. GI: Denies: abdominal pain, anorexia, melena, nausea. : Denies: dysuria, flank pain. Musculoskeletal: Denies: arthritis, extremity pain, lumbar pain. Heme: Denies: adenopathy, bleeding, petechiae. Endocrine: Denies: cold intolerance, polydipsia, weight gain. Neuro: Denies: confusion, dizziness, seizure, syncope. All systems rev neg: except as marked Objective General VS/I O Last Documented: Result Date Time B/P 133/55 03/08 [...] scale Measurement Method PATIENT WEIGHT: Weight (lb): 198 Weight (oz): 3.13 Weight (kg): 89.900 Dietitian Nutrition assessment The data set between the solid lines has been imported from the dietitian's assessment. BMI Calculated: 31.0 Nutrition related diagnosis: Nutrition diagnosis details: Nutrition problem: Increased nutrient needs Nutrition etiology: Acute illness Nutrition signs and symptoms: ESTIMATED NEEDS S/P SURGERY Nutrition prescription: 1. RECOMMEND ADVANCE TO A CCD5 CARDIAC DIET APPROPRIATE. 2. PROVIDE GLUCERNA TID WITH MEALS. 3. HEALTHY HEART DIET EDUCATION PRIOR TO DISCHARGE. 4. MONITOR PO, WT, LABS, BM. Dietitian name: Purvi Garay, DIET Assessment completed: 03/05/23 Physical Exam General appearance: alert, awake, oriented Wound/incision: Location: sternal Site condition: dressing clean dry, dressing intact HEENT: anicteric, mucosal membranes moist, pupils reactive to light Neck: full range of motion, non-tender Cardiovascular: irregular rhythm, normal heart sounds, regular rate rhythm Respiratory: decreased breath sounds, aerating well, symmetric expansion Abdomen: soft, non-tender Genitourinary: no bladder distention Extremities: dry, moves all Musculoskeletal: full range of motion Neuro/STONE BREAKER: alert, oriented X 3 Skin: dry, intact Psychiatry: normal affect, normal mood Current Medications Medications: Active Meds + DC'd Last 24 Hrs Insulin Human Lispro (HUMALOG) 0 AC HS SUBQ Furosemide (LASIX 40 mg/4 mL INJECTION) 40 MG ONCE ONE IV (DC) Methylprednisolone Sodium Succinate (Solu-Medrol 40 MG Vial) 20 MG DAILY IV Metoprolol Tartrate (LOPRESSOR) 12.5 MG Q12HR PO Ipratropium Idabel (ATROVENT) 500 MCG RTQ2H PRN PRN INH [...] ASDIR IV (CKD) Dextrose/Water (D5%W NON-DEHP) 250 ML Pantoprazole (PROTONIX) 40 MG DAILY@0600 PO Aspirin (ASPIRIN) 81 MG DAILY PO Docusate Sodium (COLACE) 100 MG BID PO Sennosides (Senna Lax 8.6 MG TABLET) 17.2 MG BEDTIME PO Ipratropium Idabel (ATROVENT) 500 MCG RTQ4H INH (DC) Acetaminophen [...] ASDIR IV Dextrose/Water (DEXTROSE 5% WATER) 246 ML Glucagon (GLUCAGON) 1 MG ASDIR PRN IM Insulin Human Regular (HumuLIN R) 100 UNIT ASDIR IV (DC) Sodium Chloride (SODIUM CHLORIDE 0.9%) 99 ML Magnesium Sulfate (MAGNESIUM SULFATE 4GM/SWFI 100ML) 100 [...] (SODIUM BICARBONATE) 50 MEQ ASDIR PRN IV Results Findings/Data: Laboratory Tests 03/08 020 Blood Gas Puncture Site [...] L Temperature (F) 98.2 O2 Delivery Device [facility] Laboratory Tests 03/08 03/08 03/08 03/08 03/08 0959 0805 0625 0212 0209 Chemistry POC Creatinine (0.8 - 1.3 mg/dL) 2.4 H POC Glucose (70 - 110 MG/DL) 229 H 136 H 132 H 121 H POC Glucose (mg/dL) (70 - 110 MG/DL) 102 03/08 03/08 03/07 03/07 03/07 0203 0042 [id number] 1959 Chemistry Sodium (134 - 147 mEq/L) [...] (Auto) (14.0 - 32.0 %) 3.9 L Grainger % (Auto) (4.8 - 9.0 %) 8.6 Eos % (Auto) (0.3 - 3.7 %) 0.0 L Baso % (Auto) (0.0 - 2.0 %) 0.2 Neut # (Auto) (2.0 - 7.6 x10 3/uL) 5.39 Lymph # (Auto) (1.0 - 3.8 x10 3/uL) 0.24 L Grainger # (Auto) (0.1 - 0.8 x10 3/uL) [...] (0.0 - 0.1 x10 3/uL) 0.00 Radiology data: Recent Impressions: RADIOLOGY - XR CHEST 1 V 03/08 0819 Report Impression - Status: SIGNED Entered: 03/08/2023 0836 IMPRESSION: Unchanged appearance of the lungs. Impression By: BuckABDavid - Ezekiel Esteves M.D. Results: labs reviewed, vital signs stable, rythm personally rev'd, x-ray personally reviewed, current med profile rev'd Diagnosis, Assessment Plan Hospital course to date: This is a pleasant 72 year old male with past medical history of hypertension, dyslipidemia, DM-2 (on insulin), former smoker (quit 2018), BPH, prostate CA s/p radiation, COPD (uses inhaler at home, no home oxygen), and PE (November 2022 on eliquis) who presented to [facility] with chest pain, dyspnea on exertion, and NSTEMI. Coronary angiogram was done and revealed severe multivessel coronary artery disease. Patient was then transferred to [facility] for CV surgery evaluation and need for CABG. 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 The surgery, risks involved, STS score, benefits, complications and alternatives were explained to the patient and his brother. He acknowledged understanding and is willing to proceed. We will tentatively schedule him for surgery tomorrow morning. Further recommendations to follow. 03/04/23 CABG x 4 (MCCORMICK-LAD,SVG-Leana, SVG-OM, SVG-PDA) ALAA EVH (LGSV) Posterior pericardiotomy 03/05/23 POD 1 Patient alert, awake, and oriented Labs and CXR reviewed On bipap 12/5 40%, wean off as tolerated Trend abgs Wean off levo as tolerated Keep both chest tubes Monitor strict I Os and renal function PT/OT, ambulate, OOB in chair DVT ppx with SCDs Monitor patient closely in CVICU 03/06/23 POD 2 Patient in stable condition CXR and labs reviewed HGB 6.6, transfuse 2 units PRBC Discontinue dopamine drip Echocardiogram Discontinue both chest tubes CR increasing, renal following, UOP 25 cc/hr OOB in chair Monitor closely in CVICU 03/07/23 POD 3 Patient alert, awake, and oriented, no complaints Labs and CXR reviewed On 2l nasal cannula, encourage I-S use Hgb stable 10.1 Discontinue left pleural chest tube On amio drip 0.5 Monitor renal function, Cr 2.9 Consult rehab Ambulate patient with PT/OT Keep patient in CVICU 03/08/23 POD 4 Patient recovering well CXR and labs reviewed Wean oxygen off as tolerated NSR, off amio drip, continue po Renal following, CR improving now 2.5 Encourage mobilization and I-S use Keep in CVICU Consultants: anesthesiology, cardiology, cardiovascular surgery, critical/ director of search engine marketing, hospitalist at 1844 RPT #:[id number] END OF REPORT [facility] 2023-03-08 10:46:00 [facility] ([facility] Cardiology Progress Note REPORT#:[id number] REPORT STATUS: Signed DATE:03/08/23 TIME: 1046 PATIENT: TEVIN NYE UNIT #: [id number] ROOM/BED: [place] [address] : 51 AGE: 72 SEX: M ATTEND: Luci Beyer MD ADM AUTHOR: Willie Lorenzana MD * ALL edits or amendments must be made on the electronic/computer document * Subjective Chief complaint: Better Objective General VS/I O: 24 hour I O ending at 0700: [...] Flow FiO2 Mean Ox Delivery Rate 03/08 0815 157/58 87 07/ 0815 36.8 72 26 145/66 95 99 07/01 0800 159/57 86 07/01 0800 36.7 64 20 141/59 92 100 07/01 0746 165/59 90 07/01 0746 36.8 64 22 144/67 97 100 07/01 0730 127/52 76 07/01 0730 36.8 65 31 116/58 83 98 07/01 0716 140/53 79 07/01 0716 36.7 61 21 141/64 92 99 07/01 0713 99 High flow 4 nasal cannula 07/ 0700 Nasal 4 cannula / 0700 142/49 76 07/01 0700 36.7 61 [...] 98 06/30 2139 97 Nasal 4 cannula 06/30 2130 36.9 58 23 127/63 90 97 06/30 2100 36.8 68 21 141/65 94 98 06/30 2030 37.2 65 21 127/59 85 98 06/30 2000 37.3 71 23 136/63 93 97 06/30 1930 37.4 71 24 140/65 93 98 06/30 1900 36.8 06/30 1900 Nasal 4 cannula 06/30 1900 37.4 70 33 108/45 66 97 [...] 1527 99 High flow 4 nasal cannula 06/30 1515 119/46 68 06/30 1515 37.5 73 22 135/69 96 96 06/30 1500 148/52 79 06/30 1500 37.5 72 22 137/64 92 97 06/30 1446 117/47 69 06/30 1446 37.5 72 28 145/67 97 98 06/30 1431 135/47 72 06/30 1431 37.5 71 26 114/59 83 97 06/30 1415 149/50 77 06/30 1415 37.5 72 22 133/63 90 97 06/30 1400 151/51 79 06/30 1400 37.5 71 23 138/56 90 98 06/30 1345 157/53 82 06/30 1345 37.4 72 22 149/67 96 98 06/30 1330 114/41 65 06/30 1330 37.4 71 26 132/58 80 98 06/30 1315 146/49 76 06/30 1315 37.4 70 23 137/65 93 97 06/30 1300 144/48 76 06/30 1300 37.4 71 23 137/64 92 97 06/30 1245 142/47 73 06/30 1245 37.4 70 19 130/57 87 97 06/30 1230 149/49 76 06/30 1230 37.3 74 24 136/64 92 96 06/30 1215 149/50 77 06/30 1215 37.3 74 24 137/59 91 96 06/30 1200 153/50 79 06/30 1200 37.2 73 23 143/63 91 97 06/30 1145 146/52 80 03/07 1145 37.2 75 28 137/62 89 97 03/07 1130 122/47 72 03/07 1130 37.2 72 30 131/60 86 96 03/07 1115 140/48 73 03/07 1115 37.2 65 19 128/62 89 98 03/07 1100 121/43 66 03/07 1100 37.2 71 23 108/55 76 96 PATIENT WEIGHT: Weight (lb): 198 Weight (oz): 3.13 Weight (kg): 89.900 Medications: Active Meds + DC'd Last 24 Hrs Insulin Human Lispro (HUMALOG) 0 AC HS SUBQ Methylprednisolone Sodium Succinate (Solu-Medrol 40 MG Vial) 20 MG DAILY IV Metoprolol Tartrate (LOPRESSOR) 12.5 MG Q12HR PO Ipratropium Idabel (ATROVENT) 500 MCG RTQ2H PRN PRN INH [...] ASDIR IV (CKD) Dextrose/Water (D5%W NON-DEHP) 250 ML Pantoprazole (PROTONIX) 40 MG DAILY@0600 PO Aspirin (ASPIRIN) 81 MG DAILY PO Docusate Sodium (COLACE) 100 MG BID PO Sennosides (Senna Lax 8.6 MG TABLET) 17.2 MG BEDTIME PO Ipratropium Idabel (ATROVENT) 500 MCG RTQ4H INH (DC) Acetaminophen [...] ASDIR IV Dextrose/Water (DEXTROSE 5% WATER) 246 ML Glucagon (GLUCAGON) 1 MG ASDIR PRN IM Insulin Human Regular (HumuLIN R) 100 UNIT ASDIR IV (DC) Sodium Chloride (SODIUM CHLORIDE 0.9%) 99 ML Magnesium Sulfate (MAGNESIUM SULFATE 4GM/SWFI 100ML) 100 [...] BICARBONATE) 50 MEQ ASDIR PRN IV Physical Exam General appearance: alert, awake Neck: full range of motion, non-tender, normal thyroid, supple/no meningismus, no bruit/NL carotids, no JVD, no lymphadenopathy, no masses or swelling Cardiovascular: CV assessment: regular rate and rhythm Respiratory: decreased breath sounds, clear to auscultation Abdomen: non-tender, normal bowel sounds, no distention, no guarding, no mass/ organomegaly, no pulsatile mass, no rebound Upper extremity: UE assessment: normal capillary refill, no edema Lower extremity: LE assessment: normal capillary refill, no edema Results Findings/Data: Laboratory Tests 03/08 209 Blood Gas Puncture Site [...] L Temperature (F) 98.2 O2 Delivery Device [facility] Laboratory Tests 03/08 03/08 03/08 03/08 03/08 0959 0805 0625 0212 0209 Chemistry POC Creatinine (0.8 - 1.3 mg/dL) 2.4 H POC Glucose (70 - 110 MG/DL) 229 H 136 H 132 H 121 H POC Glucose (mg/dL) (70 - 110 MG/DL) 102 03/08 03/08 03/07 03/07 03/07 0203 0042 9677 4296 9352 Chemistry Sodium (134 - 147 mEq/L) 144 [...] (Auto) (14.0 - 32.0 %) 3.9 L Grainger % (Auto) (4.8 - 9.0 %) 8.6 Eos % (Auto) (0.3 - 3.7 %) 0.0 L Baso % (Auto) (0.0 - 2.0 %) 0.2 Neut # (Auto) (2.0 - 7.6 x10 3/uL) 5.39 Lymph # (Auto) (1.0 - 3.8 x10 3/uL) 0.24 L Grainger # (Auto) (0.1 - 0.8 x10 3/uL) [...] (1.80 - 2.40 mg/dL) 2.83 H Radiology data: Recent Impressions: RADIOLOGY - XR CHEST 1 V 03/08 819 Report Impression - Status: SIGNED Entered: 03/08/2023835 IMPRESSION: Unchanged appearance of the lungs. Impression By: Herlinda Esteves M.D. Diagnosis, Assessment Plan Free Text DxA P Notes Free Text DxA P Notes: 1- Severe COPD with exacerbation: As per Pulm 2- Recent pulmonary embolism on Eliquis 3- NSTEMI/Multivessel coronary artery disease: S/P CBBG, extubated and doing fair 5- Hypertension" Will add Norvasc 5mg and increase Metoprolol to 25 BID 6- History of tobacco use 7. Wide complex tachy: Asymptomatic and suggests AFIB/SVT with aberrancy. Respomded to bolus of IV Amio. will increase po amio 8. Acute on chronic renal failure pt is stable discussed with cvicu nurse and pt at 1048 RPT #:[id number] END OF REPORT [facility] 2023-03-08 10:13:00 [facility] ([facility]) Nephrology Progress Note REPORT#:[id number] REPORT STATUS: Signed DATE:03/08/23 TIME: 1013 PATIENT: TEVIN NYE UNIT #: [id number] ROOM/BED: [place] [address] : 51 AGE: 72 SEX: M ATTEND: Luci Beyer MD ADM AUTHOR: Glendy Paz MD * ALL edits or amendments must be made on the electronic/computer document * Subjective Comments: Sitting up in the chair, still coughing up brownish sputum. Objective General VS/I O: Vital Signs: Date Time Temp Pulse Resp B/P B/P Pulse O2 O2 Flow FiO2 Mean Ox Delivery Rate / 0815 157/58 87 07/ 0815 98.2 72 26 145/66 95 99 07/01 0800 159/57 86 07/01 0800 98.1 64 20 141/59 92 100 07/01 [...] 1900 98.2 06/30 1900 Nasal 4 cannula 30 1900 99.3 70 33 108/45 66 97 [...] 1527 99 High flow 4 nasal cannula 0630 1515 119/46 68 06/30 1515 99.5 73 [...] 138/56 90 98 06/30 1345 157/53 82 06/30 1345 99.3 72 22 149/67 96 98 06/30 1330 114/41 65 06/30 1330 99.3 71 26 132/58 80 98 06/30 1315 146/49 76 06/30 1315 99.3 70 23 137/65 93 97 06/30 1300 144/48 76 06/30 1300 99.3 71 23 137/64 92 97 06/30 1245 142/47 73 06/30 1245 99.3 70 19 130/57 87 97 06/30 1230 149/49 76 06/30 1230 99.1 74 24 136/64 92 96 06/30 1215 149/50 77 06/30 1215 99.1 74 24 137/59 91 96 06/30 1200 153/50 79 06/30 1200 99.0 73 23 143/63 91 97 06/30 1145 146/52 80 06/30 1145 99.0 75 28 137/62 89 97 06/30 1130 122/47 72 06/30 1130 99.0 72 30 131/60 86 96 06/30 1115 140/48 73 06/30 1115 99.0 65 19 128/62 89 98 06/30 1100 121/43 66 06/30 1100 99.0 71 23 108/55 76 96 03/07 1045 142/51 78 03/07 1045 95 High flow 4 nasal cannula 03/07 1045 99.0 71 21 130/57 87 95 03/07 1030 128/46 70 03/07 1030 99.0 67 30 118/59 85 98 03/07 1015 136/48 72 03/07 1015 99.0 72 23 129/60 86 95 24 hour I O ending at 0700: 03/08 0700 03/07 1900 Intake Total 214.00 1647.00 Output Total 550 760 Balance -336.00 887.00 Intake, IV 14.00 87.00 Intake, Oral 200 1560 Output, Chest 80 Tube Drainage Output, Urine 550 680 Patient 89.9 kg Weight Weight Bed scale Measurement Method PATIENT WEIGHT: Weight (lb): 198 Weight (oz): 3.13 Weight (kg): 89.900 Medications Active Meds + DC'd Last 24 Hrs Methylprednisolone Sodium Succinate (Solu-Medrol 40 MG Vial) 20 MG DAILY IV Metoprolol Tartrate (LOPRESSOR) 12.5 MG Q12HR PO Ipratropium Idabel (ATROVENT) 500 MCG RTQ2H PRN PRN INH [...] ASDIR IV (CKD) Dextrose/Water (D5%W NON-DEHP) 250 ML Pantoprazole (PROTONIX) 40 MG DAILY@0600 PO Aspirin (ASPIRIN) 81 MG DAILY PO Docusate Sodium (COLACE) 100 MG BID PO Sennosides (Senna Lax 8.6 MG TABLET) 17.2 MG BEDTIME PO Ipratropium Idabel (ATROVENT) 500 MCG RTQ4H INH (DC) Acetaminophen [...] ASDIR IV Dextrose/Water (DEXTROSE 5% WATER) 246 ML Glucagon (GLUCAGON) 1 MG ASDIR PRN IM Insulin Human Regular (HumuLIN R) 100 UNIT ASDIR IV (CKD) Sodium Chloride (SODIUM CHLORIDE 0.9%) 99 ML Magnesium Sulfate (MAGNESIUM SULFATE 4GM/SWFI 100ML) 100 [...] BICARBONATE) 50 MEQ ASDIR PRN IV Physical Exam General appearance: alert, awake, oriented Head/eyes: atraumatic, normocephalic, PERRLA Neck: no JVD, no lymphadenopathy Cardiovascular: normal heart sounds, regular rate and rhythm, no rub Respiratory: decreased breath sounds, aerating well, no distress Abdomen: non-tender, normal bowel sounds, soft, no rebound Genitourinary: urinary catheter, urine Extremities: pitting edema, no gangrene Neuro/STONE BREAKER: alert, normal speech Results Findings/Data: Laboratory Tests 03/08 020 Blood Gas Puncture Site [...] L Temperature (F) 98.2 O2 Delivery Device NC Laboratory Tests 03/08 03/08 03/08 03/08 03/08 0959 0805 0625 0212 0209 Chemistry POC Creatinine (0.8 - 1.3 mg/dL) 2.4 H POC Glucose (70 - 110 MG/DL) 229 H 136 H 132 H 121 H POC Glucose (mg/dL) (70 - 110 MG/DL) 102 03/08 03/08 03/07 03/07 03/07 0203 0042 [id number] 1959 Chemistry Sodium (134 - 147 mEq/L) [...] (Auto) (14.0 - 32.0 %) 3.9 L Grainger % (Auto) (4.8 - 9.0 %) 8.6 Eos % (Auto) (0.3 - 3.7 %) 0.0 L Baso % (Auto) (0.0 - 2.0 %) 0.2 Neut # (Auto) (2.0 - 7.6 x10 3/uL) 5.39 Lymph # (Auto) (1.0 - 3.8 x10 3/uL) 0.24 L Grainger # (Auto) (0.1 - 0.8 x10 3/uL) [...] (0.0 - 0.1 x10 3/uL) 0.00 Radiology data: Recent Impressions: RADIOLOGY - XR CHEST 1 V 03/08 819 Report Impression - Status: SIGNED Entered: 03/08/2023835 IMPRESSION: Unchanged appearance of the lungs. Impression By: Herlinda Esteves M.D. Diagnosis, Assessment Plan Free Text A P: 1. JERAMY likely ATN secondary to IV contrast. [...] abnormal left ventricular relaxation (grade 1 diastolic dysfunction). 2. Regional wall motion abnormality: Severe hypokinesis of the apical anterior, apical septal, apical lateral, and apical myocardium; hypokinesis of the basal-mid anteroseptal myocardium. 3. Right ventricle: Systolic pressure is moderately increased. 4. Mitral valve: There is mild regurgitation. 5. Tricuspid valve: Estimated right ventricular systolic pressure is 46 mmHg. There is moderate regurgitation. 6. Pericardium, extracardiac: A trivial pericardial effusion is identified. 7. Inferior vena cava: The vessel is dilated. The respirophasic diameter changes are in the normal range (= 50%). Inferior vena cava diameter is 2.1 cm. on 03/04/23 at 1717 at 1243 RPT #:[id number] END OF REPORT [facility] 2023-03-08 09:36:00 [facility] ([facility]) Critical Care Progress Note REPORT#:[id number] REPORT STATUS: Signed DATE:03/08/23 TIME: 935 PATIENT: TEVIN NYE UNIT #: [id number] ROOM/BED: [place] [id number] : 51 AGE: 72 SEX: M ATTEND: Luci Beyer MD ADM AUTHOR: Noé Madrid MD * ALL edits or amendments must be made on the electronic/computer document * Subjective Chief complaint: Chest pain/Unstable angina Wheezing Dyspnea Multivessel coronary artery disease Non-ST elevation UT Status post CABG x5 and ILAA Elective ventilator dependence Acute pulmonary insufficiency following major cardiothoracic surgery Acute blood loss anemia Metabolic acidosis Lactic acidosis Hypokalemia Hyperglycemia Chronic steroid dependence Severe left carotid stenosis History of severe COPD HPI: Patient seen and examined in CVICU room #2201 this morning. Patient is postop day 4 after CABG x5 and isolation of left atrial appendage. No acute events reported overnight. Kidney function is improving and the creatinine is 2.5 mg/ dL this morning. Urine output was 550 mL overnight. Patient is on 2 L nasal cannula oxygen. He has history of COPD. Tolerating oral diet and having bowel movement. Patient has been able to ambulate with physical therapy. All drips have been discontinued. Blood pressure stable. Vital signs stable. Patient is awake, interactive, following commands and [...] isolation of left atrial appendage. He came out of the OR with norepinephrine at 4 mcg [...] dose was at 3:15 PM. Patient was given hydrocortisone 100 mg IV at 2:45 PM for chronic steroid dependence. He is currently on assist-control at 18 tidal volume 480 PEEP of 5 and 50% FiO2 and is moving tidal volumes at 470+. Vital signs are stable with heart rate 82 sinus rhythm, blood pressure 95/41 mmHg, pulse ox 100% while on 50% FiO2 and respiratory rate is 14. Chest tube output is minimal at 3 mm each. Patient was ordered albumin 25% to 50 mL. Pupils are bilaterally symmetrical and reactive to light measuring 3 mm on each side. Lab work upon arrival in the CVICU room # 2201 revealed a potassium of 3.3, glucose 230, creatinine 1.46 mg/dL, hemoglobin of 6.9 g/dL and hematocrit of 20%. Tevin Gonzalez is a 72 y.o. male with PMH of hypertension, dyslipidemia, diabetes, former smoker (quit 2008), BPH, prostate CA s/p radiation, COPD (uses inhaler at home, no home oxygen), and PE (November 2022 on eliquis) who presented to [facility] with chest pain, dyspnea on exertion, and NSTEMI. Coronary angiogram was done and revealed severe multivessel coronary artery disease. Patient was then transferred to [facility] for CV surgery evaluation and need for [...] of left atrial appendage on 03/04/2023. Patient reports: No: abdominal pain, back pain, diarrhea, fever, shortness of breath, vomiting. Nursing reports: No: diarrhea, fever, shortness of breath, vomiting. Review of Systems Constitutional: Denies: fatigue, fever. Skin: Denies: diaphoresis, ecchymosis. Allergy/Immun: Denies: anaphylaxis, hives. Eyes: Denies: discharge, visual loss/blurred, itching, diplopia. ENT: Denies: nose bleeding, throat swelling, tongue swelling. Respiratory: Denies: [place] (dyspnea on exertion), hemoptysis, SOB, wheezing. Cardiovascular: Denies: [place] (dyspnea on exertion), edema. GI: Denies: hematemesis, hematochezia. : Denies: hematuria, nocturia. Heme: Denies: bleeding, bruising. Endocrine: Denies: polydipsia, polyphagia. Neuro: Denies: confusion, dizziness, seizure. Psych: Denies: agitation, anxiety, hostile, stress. Objective General VS/I O Last Documented: Result Date Time B/P 157/58 03/08 08 B/P Mean 87 03/08 0815 Pulse Ox 99 03/08 0815 Temp 36.8 03/08 08 Pulse 72 03/08 0815 Resp 26 03/08 0815 O2 Delivery Nasal cannula 03/08 07 O2 Flow Rate 4 03/08 07 FiO2 40 03/08 0358 24 hour I O ending at 0700: 03/08 0700 06 1900 Intake Total 214.00 1647.00 Output Total 550 760 Balance -336.00 887.00 Intake, IV 14.00 87.00 Intake, Oral 200 1560 Output, Chest 80 Tube Drainage Output, Urine 550 680 Patient 89.9 kg Weight Weight Bed scale Measurement Method PATIENT WEIGHT: Weight (lb): 198 Weight (oz): 3.13 Weight (kg): 89.900 Medications: Active Meds + DC'd Last 24 Hrs Methylprednisolone Sodium Succinate (Solu-Medrol 40 MG Vial) 20 MG DAILY IV Metoprolol Tartrate (LOPRESSOR) 12.5 MG Q12HR PO Ipratropium Idabel (ATROVENT) 500 MCG RTQ2H PRN PRN INH [...] ASDIR IV (CKD) Dextrose/Water (D5%W NON-DEHP) 250 ML Pantoprazole (PROTONIX) 40 MG DAILY@0600 PO Aspirin (ASPIRIN) 81 MG DAILY PO Docusate Sodium (COLACE) 100 MG BID PO Sennosides (Senna Lax 8.6 MG TABLET) 17.2 MG BEDTIME PO Ipratropium Idabel (ATROVENT) 500 MCG RTQ4H INH (DC) Acetaminophen [...] ASDIR IV Dextrose/Water (DEXTROSE 5% WATER) 246 ML Glucagon (GLUCAGON) 1 MG ASDIR PRN IM Insulin Human Regular (HumuLIN R) 100 UNIT ASDIR IV (CKD) Sodium Chloride (SODIUM CHLORIDE 0.9%) 99 ML Magnesium Sulfate (MAGNESIUM SULFATE 4GM/SWFI 100ML) 100 [...] 50 MEQ ASDIR PRN IV Post-op: day 4 Status post: CABG times 5 and ILAA Physical Exam General appearance: alert, awake, oriented, no acute distress, pleasant, conversational, mental status normal, no respiratory distress Head/eyes: EOMI, PERRL ENT: moist mucosal membranes Cardiovascular: normal capillary refill, normal heart sounds, regular rate and rhythm, normal S1/S2 Respiratory: aerating well, clear to auscultation, symmetric expansion Abdomen: soft, non-tender Genitourinary: urinary catheter, no bladder distention Extremities: no clubbing, no cyanosis, no edema Skin: abnormal temperature, dry, no rash Psychiatry: normal affect, normal judgment/insight, normal mood, not homicidal, not suicidal, no hallucinations Results Findings/data: Laboratory Tests 03/08 209 Blood Gas Puncture Site [...] 03/08 03/08 03/08 0805 0625 0212 0209 0203 Chemistry Sodium (134 - 147 mEq/L) 144 [...] (Auto) (14.0 - 32.0 %) 3.9 L Grainger % (Auto) (4.8 - 9.0 %) 8.6 Eos % (Auto) (0.3 - 3.7 %) 0.0 L Baso % (Auto) (0.0 - 2.0 %) 0.2 Neut # (Auto) (2.0 - 7.6 x10 3/uL) 5.39 Lymph # (Auto) (1.0 - 3.8 x10 3/uL) 0.24 L Grainger # (Auto) (0.1 - 0.8 x10 3/uL) [...] 0.1 x10 3/uL) 0.00 Laboratory Tests 03/08/23 0203: [Embedded Image Not Available] 03/07/23 1736: [Embedded Image Not Available] Radiology data Recent Impressions: RADIOLOGY - XR CHEST 1 V 03/08 819 Report Impression - Status: SIGNED Entered: 03/08/2023 0836 IMPRESSION: Unchanged appearance of the lungs. Impression By: Herlinda - Ezekiel Esteves M.D. Results: labs reviewed, vital signs reviewed, rhythm personally rev'd, current med profile rev'd Diagnosis, Assessment Plan Free text A P: Problem List: Chest pain Wheezing Dyspnea Multivessel coronary artery disease Non-ST elevation UT Status post CABG x5 and ILAA Elective ventilator dependence Acute pulmonary insufficiency following major cardiothoracic surgery Acute blood loss anemia Metabolic acidosis Lactic acidosis Hypokalemia Hyperglycemia Chronic steroid dependence Severe left carotid stenosis History of severe COPD Assessment and Plan: Tevin [...] isolation of left atrial appendage. He came out of the OR with norepinephrine at 4 mcg [...] dose was at 3:15 PM. Patient was given hydrocortisone 100 mg IV at 2:45 PM for chronic steroid dependence. He is currently on assist-control at 18 tidal volume 480 PEEP of 5 and 50% FiO2 and is moving tidal volumes at 470+. Vital signs are stable with heart rate 82 sinus rhythm, blood pressure 95/41 mmHg, pulse ox 100% while on 50% FiO2 and respiratory rate is 14. Chest tube output is minimal at 3 mm each. Patient was ordered albumin 25% to 50 mL. Pupils are bilaterally symmetrical and reactive to light measuring 3 mm on each side. Lab work upon arrival in the CVICU room # 2201 revealed a potassium of 3.3, glucose 230, creatinine 1.46 mg/dL, hemoglobin of 6.9 g/dL and hematocrit of 20%. Tevin Gonzalez is a 72 y.o. male with PMH of hypertension, dyslipidemia, diabetes, former smoker (quit 2008), BPH, prostate CA s/p radiation, COPD (uses inhaler at home, no home oxygen), and PE (November 2022 on eliquis) who presented to [facility] with chest pain, dyspnea on exertion, and NSTEMI. Coronary angiogram was done and revealed severe multivessel coronary artery disease. Patient was then transferred to [facility] for CV surgery evaluation and need for [...] postop day 0 after CABG x5 and ILAA Has severe left carotid stenosis Optimize systolic blood pressure to greater than 130 mmHg Patient was on chronic steroid therapy with Solu-Medrol Adrenal cortical support with hydrocortisone 25 mg IV every 8 hours Has acute blood loss anemia with a hemoglobin of 6.9 g/dL Transfuse 2 units of packed red cells Patient received Hydrocortisone 100 mg IV at 2:45 PM Start on Hydrocortisone 25 mg every 8 hours Also received parasternal block Currently on assist-control at 18 tidal volume 480 PEEP of 5 and 50% FiO2 Latest blood gas shows a pH of 7.28, pCO2 of 43 mmHg, pO2 of 175 mmHg and bicarbonate of 20 mmol with base excess at -6.5 Patient has been ordered 1 amp of sodium bicarbonate Recheck ABGs in 1 hour Chest tube output is minimal at 3 mL in both left pleural and mediastinal chest tube Blood pressure is low upon arrival at 95/41 mm of Hg Optimize blood pressure with Norepinephrine, titrate to a map of 70 or greater Avoid sedation Monitor chest tube output Pupils are bilaterally symmetrical and reactive to light measuring 3 mm on each side Replete potassium, check magnesium and ionized calcium Follow BMP Glycemic control with insulin drip, latest blood glucose is 230 mg/dL SCDs for DVT prophylaxis Noé Madrid MD [facility] 03/04/2023 6.32 PM 03/07/2023 Neurologically patient is at baseline. Pain well controlled On NC 2 L during the day and BiPAP at night. ABG and CXR reviewed. small right pleural effusion seen Continue duonebs, wean steroids to daily, pulmonary following In SR, stop amiodarone drip, continue beta she 12.5 mg metoprolol and amidoarone 400 BID LFTs within normal limits. Continue aspirin and Plavix. PPI daily. Discontinue the left pleural chest tube. No bowel movement yet. Abdomen soft. Give milk of mag. Creatinine is downtrending and is now 2.8. Continue to monitor the urine output. Renal following. Hold nephrotoxic medications. On insulin drip since he is on steroids. Continue to monitor for now. SCDs for DVT prophylaxis. Rehab evaluation Total critical care time 45 minutes excluding procedures 03/08/2023 Patient seen and examined in CVICU room #2201 this morning. Patient is postop day 4 after CABG x5 and isolation of left atrial appendage. No acute events reported overnight. Kidney function is improving and the creatinine is 2.5 mg/ dL this morning. Urine output was 550 mL overnight. Patient is on 2 L nasal cannula oxygen. He has history of COPD. Tolerating oral diet and having bowel movement. Patient has been able to ambulate with physical therapy. All drips have been discontinued. Blood pressure stable. Vital signs stable. Patient is awake, interactive, following commands and [...] isolation of left atrial appendage. He came out of the OR with norepinephrine at 4 mcg [...] dose was at 3:15 PM. Patient was given hydrocortisone 100 mg IV at 2:45 PM for chronic steroid dependence. He is currently on assist-control at 18 tidal volume 480 PEEP of 5 and 50% FiO2 and is moving tidal volumes at 470+. Vital signs are stable with heart rate 82 sinus rhythm, blood pressure 95/41 mmHg, pulse ox 100% while on 50% FiO2 and respiratory rate is 14. Chest tube output is minimal at 3 mm each. Patient was ordered albumin 25% to 50 mL. Pupils are bilaterally symmetrical and reactive to light measuring 3 mm on each side. Lab work upon arrival in the CVICU room # 2201 revealed a potassium of 3.3, glucose 230, creatinine 1.46 mg/dL, hemoglobin of 6.9 g/dL and hematocrit of 20%. Tevin Gonzalez is a 72 y.o. male with PMH of hypertension, dyslipidemia, diabetes, former smoker (quit 2008), BPH, prostate CA s/p radiation, COPD (uses inhaler at home, no home oxygen), and PE (November 2022 on eliquis) who presented to [facility] with chest pain, dyspnea on exertion, and NSTEMI. Coronary angiogram was done and revealed severe multivessel coronary artery disease. Patient was then transferred to [facility] for CV surgery evaluation and need for [...] x5 and isolation of left atrial appendage Extubated now, tolerating oral diet and having bowel movement Patient was able to ambulate with physical therapy Immediate postop course was complicated with unresponsiveness and requiring reversal of anesthetic agents Pupils were blown and 5 mm unreactive to light bilaterally Emergent CT scan of the head was unremarkable in the immediate postoperative. Patient had profound acidosis that was reversed with multiple bicarb infusions Eventually neurological status was resolved Patient is awake, interactive, following commands and moving all 4 extremities All drips have been discontinued Has severe COPD Not home oxygen dependent Currently on 2 L nasal cannula oxygen Assess need for home O2 requirement Developed acute kidney injury on CKD Creatinine is 2.5 mg/dL slightly improved from 2.7 mg/dL yesterday Urine output was 550 mL overnight Follow urine output and BMP Patient is tolerating oral diet Both chest tubes have been removed SCDs for DVT prophylaxis Noé Madrid MD [facility] 03/08/2023 9.42 AM Consultants: anesthesiology, cardiology, cardiovascular surgery, critical/ director of search engine marketing, hospitalist Code status: full code Plan discussed with: patient, consultants, nurse, interdisc care team Critical care time: Minutes: 35 at 0945 RPT #:[id number] END OF REPORT [facility] 2023-03-07 15:02:00 [facility] ([facility]) Nephrology Progress Note REPORT#:[id number] REPORT STATUS: Signed DATE:03/07/23 TIME: 1502 PATIENT: TEVIN NYE UNIT #: [id number] ROOM/BED: [place] [address] : 51 AGE: 72 SEX: M ATTEND: Luci Beyer MD ADM AUTHOR: Glendy Paz MD * ALL edits or amendments must be made on the electronic/computer document * Subjective Comments: Sitting up in the chair, coughing with brownish sputum. Objective General VS/I O: Vital Signs: Date Time Temp Pulse Resp [...] 1100 99.0 71 23 108/55 76 96 03/07 1045 142/51 78 03/07 1045 95 High flow 4 nasal cannula 03/07 1045 99.0 71 21 130/57 87 95 03/07 1030 128/46 70 03/07 1030 99.0 67 30 118/59 85 98 03/07 1015 136/48 72 06/30 1015 99.0 72 23 129/60 86 95 06/30 1000 99.0 72 20 153/67 96 97 06/30 0945 99.0 80 29 144/54 95 99 06/30 0942 85 26 154/67 97 98 06/30 0915 151/58 86 06/30 0915 99.0 72 22 162/72 104 100 06/30 0900 162/54 85 06/30 0900 98.8 72 24 162/72 103 99 06/30 0850 164/53 85 06/30 0850 75 32 155/65 94 100 06/30 0800 Nasal 2 cannula 06/30 0747 146/55 82 06/30 0747 71 26 190/78 112 92 06/30 0744 93 High flow 2 nasal cannula 06/30 0731 147/53 79 06/30 0731 67 23 [...] 06/29 2245 64 18 152/61 89 97 06/29 2230 142/70 98 06/29 2230 65 20 152/60 89 96 06/29 2215 141/69 99 06/29 2215 64 20 154/60 89 96 06/ 2200 140/67 97 03/06 2200 63 19 [...] scale Measurement Method PATIENT WEIGHT: Weight (lb): 200 Weight (oz): 6.4 Weight (kg): 90.900 Medications Active Meds + DC'd Last 24 Hrs Methylprednisolone Sodium Succinate (Solu-Medrol 40 MG Vial) 20 MG DAILY IV Metoprolol Tartrate (LOPRESSOR) 12.5 MG Q12HR PO Ipratropium Idabel (ATROVENT) 500 MCG RTQ2H PRN PRN INH [...] ASDIR IV (CKD) Dextrose/Water (D5%W NON-DEHP) 250 ML Pantoprazole (PROTONIX) 40 MG DAILY@0600 PO Aspirin (ASPIRIN) 81 MG DAILY PO Docusate Sodium (COLACE) 100 MG BID PO Metoprolol Tartrate (LOPRESSOR) 12.5 MG Q12HR PO (DC) Sennosides (Senna Lax 8.6 MG TABLET) 17.2 MG BEDTIME PO Ipratropium Idabel (ATROVENT) 500 MCG RTQ4H INH Acetaminophen (TYLENOL) [...] ASDIR IV Dextrose/Water (DEXTROSE 5% WATER) 246 ML Glucagon (GLUCAGON) 1 MG ASDIR PRN IM Insulin Human Regular (HumuLIN R) 100 UNIT ASDIR IV (CKD) Sodium Chloride (SODIUM CHLORIDE 0.9%) 99 ML Magnesium Sulfate (MAGNESIUM SULFATE 4GM/SWFI 100ML) 100 [...] BICARBONATE) 50 MEQ ASDIR PRN IV Physical Exam General appearance: alert, awake, oriented Head/eyes: atraumatic, normocephalic, PERRLA Neck: no JVD, no lymphadenopathy Cardiovascular: normal heart sounds, regular rate and rhythm, no rub Respiratory: decreased breath sounds, aerating well, no distress Abdomen: non-tender, normal bowel sounds, soft, no rebound Genitourinary: urinary catheter, urine Extremities: no edema, no gangrene Neuro/STONE BREAKER: alert, normal speech Results Findings/Data: Laboratory Tests 03/07 03/06 03/06 0236 2107 1607 [...] 03/07 03/07 03/07 1156 0856 0809 0236 0231 Chemistry Sodium (134 - 147 mEq/L) 144 144 [...] L Total Alk Phosphatase (20 - 125 41 IUnit/L) Total Protein (6.4 - 8.2 g/dL) 5.7 L Albumin (3.4 - 5.0 g/dL) 3.40 03/07 03/06 03/06 03/06 03/06 0114 2305 2107 1955 1607 Chemistry Sodium (134 - 147 mEq/L) 145 [...] - 32.0 %) 2.7 L 2.7 L Grainger % (Auto) (4.8 - 9.0 %) 6.7 5.2 Eos % (Auto) (0.3 - 3.7 %) 0.0 L 0.0 L Baso % (Auto) (0.0 - 2.0 %) 0.0 0.1 Neut # (Auto) (2.0 - 7.6 x10 3/uL) 6.96 7.00 Lymph # (Auto) (1.0 - 3.8 x10 3/uL) 0.21 L 0.21 L Grainger # (Auto) (0.1 - 0.8 x10 3/uL) [...] - 0.1 x10 3/uL) 0.00 0.00 Radiology data: Recent Impressions: RADIOLOGY - XR CHEST 1 V 03/07 2698 Report Impression - Status: SIGNED Entered: 03/07/2023 2732 IMPRESSION: 1. Increased interstitial opacities compatible with edema. 2. Increased right pleural effusion with associated basilar atelectasis versus airspace disease. 3. Stable small volume left pneumothorax with thoracostomy tube in place. Stable left basilar pleuroparenchymal changes. Impression By: Wilbert Brown M.D. Diagnosis, Assessment Plan Free Text A P: 1. JERAMY likely ATN secondary to IV contrast. Urine output improving. Sp NS at 75 cc/h for 1 L. Monitor respiratory status closely. Avoid nephrotoxic medications.creatinine improving at 3.1> 2.8 today. May give Lasix 40 mg IV tonight or in the morning if urine output does not apple picker or respiratory status worsens 2. Acute hypercapnic respiratory failure with COPD on BiPAP. Pulmonary following 3. Coronary disease status post CABG postop care per CT surgery 4. Left carotid artery stenosis 5. Anemia PRBC as needed Discussed with ICC 1. Left ventricle: The cavity size is normal. Wall thickness is normal. Systolic function is mildly reduced. The estimated ejection fraction is 40-44%. Doppler parameters are consistent with abnormal left ventricular relaxation (grade 1 diastolic dysfunction). 2. Regional wall motion abnormality: Severe hypokinesis of the apical anterior, apical septal, apical lateral, and apical myocardium; hypokinesis of the basal-mid anteroseptal myocardium. 3. Right ventricle: Systolic pressure is moderately increased. 4. Mitral valve: There is mild regurgitation. 5. Tricuspid valve: Estimated right ventricular systolic pressure is 46 mmHg. There is moderate regurgitation. 6. Pericardium, extracardiac: A trivial pericardial effusion is identified. 7. Inferior vena cava: The vessel is dilated. The respirophasic diameter changes are in the normal range (= 50%). Inferior vena cava diameter is 2.1 cm. on 03/04/23 at 1717 at 1749 RPT #:[id number] END OF REPORT [facility] 2023-03-07 14:15:00 [facility] ([facility] Acute Rehab Consult REPORT#:[id number] REPORT STATUS: Signed DATE:03/07/23 TIME: 1415 PATIENT: TEVIN NYE UNIT #: [id number] ROOM/BED: [place] [address] : 51 AGE: 72 SEX: M ATTEND: Luci Beyer MD ADM AUTHOR: Nicolasa Galeano PA-C * ALL edits or amendments must be made on the electronic/computer document * History of Present Illness HPI Reason for consult: evaluation of Rehab needs PCP: PCP: No Primary or Family Physician Requesting clinician: DR BEYER Etiologic diagnosis: CIM HPI: Tevin Nye is a 72-year-old gentleman [...] no hyperdense vessels noted. Repeat echo with EF 60-64% . He was extubated and now weaned to NC. His Cr climed to max of 3.1. [place] to be ATN secondary to contrast. Nephrology following. On NC 2 L during the day and BiPAP at night. ABG and CXR reviewed with intersistial edema and small right pleural effusion. Pulmonary recommending continue duonebs and wean steroids to daily. Currently in NSR and transitioned to PO 12.5 mg metoprolol and amidoarone 400 BID. Functional Status PT evaluation: SUPERVISION: 1. One on one supervision with cueing and assistance provided to ensure proper performance of all activities. Yes Precautions: STERNAL FALL CARDIAC Safety addressed through use of: Verbal Cues Tactile Cues Gait Device WC HANDLE WC FOLLOW Weightbearing: No Restriction Ambulation Distance: 200 FT Progression: Forward Assistance Level: Minimal Assistance Gait Deviations: SHORT STEP [facility] Mobility: No Document Pain/Education: No Advanced Progression: No Effects of Treatment: Tolerance increased Cardio tolerance improved Post [place] Precautions: In Chair Call Light in Reach Nursing Notified Review Plan of Care: Yes PT charges: Gait Training [id number] Gait Cmt: AMBULATED FAIR USING WC HANDLES FOR BALANCE. Pt ON 3L O2VIA NC BUT FELT SOB W SPO2 95+. Pt EDUCATED ON PLB AND RELAXATION. WILL PROGRESS TOLERATED. Pt WILL BENEFIT FROM IRF CONSULT. If this is the patient's last treatment, this entry serves as the discharge summary: Y Start Time: 909 Stop Time: 919 Treatment Time: ( minutes) 0:10 Completed by: Giuliano Mcwilliams OT evaluation: Therapist recommended discharge needs: PostAcute Rehabilitation Potential: Fair to Good Recommendations: PT Consult Modified Mary Score: No MR Screening Performed: Pre-Morbid Screening Document Pain/Education: Yes Post [place] Precautions: In Bed, rails Up Call Light in Reach Nursing Notified O2 on Post TX Comments: ALL NEEDS IN REACH Evaluation Type: Low Complexity Reason for Eval Complexity: Impaired balance Document OT charges: EVAL OT HIGH COMP [id number] Comments: PT DECREASE STRENGTH, ENDURANCE, STANDING BALANCE AND ADL SKILLS. PT WILL BENEFIT FROM SKILLED OT TO INCREASE STRENGTH, ENDURANCE, STANDING BALANCE FOR ADL. CO-TREAT W/P.T., PT AMBULATED 200FT HOLDING TRANSPORT CHAIR HANDLE W/ MIN A. If this is the patient's last treatment, this entry serves as the discharge summary: Y Start Time: 920 Stop Time: 944 Eval Time ( minutes): 0:24 Completed by: Flakita Wolfe UPPER EXTREMETY [...] Normal Gross Motor Coordination: Normal Right Hand Proprietary Trader Strength: Fair Left Hand Proprietary Trader Strength: Fair Comments: MMT NOT TEST D/T [...] as brushing teeth? 3 Eating meals? 3 [facility] Activity Score: 11 ACTIVITIES OF DAILY LIVING Items determined to be outside Functional Limits are as follows: Upper Body Dressing: Minimal Assistance Lower Body Dressing: Dependent Hygiene/Grooming: Supervision or Set-up Feeding: Supervision or Set-up Toileting: Dependent History Past medical history: Reports: COPD, Diabetes mellitus, Hypertension, BPH, Dyslipidemia. Past surgical history: Reports: Knee procedure, Lung surgery (collapsed lung). Additional family history: UTO Alcohol use: Denies EtOH use Drug use: Denies recreational drugs Smoking status for patients 13 years old or older: Former Smoker Packs per day: 1 Years smoked: 20 Pack years: 20 Additional social history: LIVES AT HOME ALONE. HIS YOUNGER BROTHER LIVES ACROSS THE STREET. [place]. NO STAIRS. HE WAS IND PLOF. NO DME USED . OCCASSIONAL CANE USED. NO OXYGEN Medications: Home Medications: Medication Dose/Rte/Freq Days Qty Entered Last Max Daily Dose Reviewed OXYBUTYNIN (DITROPAN) 5 MG PO BID 03/03/23 03/03/23 Strength: 5 MG TAB 1937 1948 TAMSULOSIN ER (FLOMAX) 0.8 MG PO DAILY 03/03/23 03/03/23 Strength: 0.4 MG CAP.SR.24H 1938 1948 FLUoxetine (PROzac) 10 MG PO QAM 03/03/23 03/03/23 Strength: 10 MG CAP 1938 1948 LATANOPROST 1 DROP EACH EYE 03/03/23 03/03/23 (XALATAN 0.005% OPHTH BEDTIME 1939 1948 SOLN) Strength: 0.005 % OPHTH.SOLN LISINOPRIL (ZESTRIL) 20 MG PO DAILY 03/03/23 03/03/23 Strength: 20 MG TAB 1939 1948 METOPROLOL TARTRATE 25 MG PO BID 03/03/23 03/03/23 (LOPRESSOR) 1940 1948 Strength: 50 MG TAB INSULIN LISPRO 6 03/03/23 03/03/23 (HumaLOG KWIKPEN (3mL)) 1942 1948 Strength: 100 UNIT/ML INSULN.PEN INSULIN LISPRO (HumaLOG) 50 03/03/23 03/03/23 Strength: 100 UNIT/ML VIAL 1943 1948 CALCIUM CARBONATE/VIT 2 TAB PO DAILY 03/03/23 03/03/23 D3 1944 1948 (CALCIUM CARB/VIT D3 500 MG/200 UNITS) Strength: 500 MG CALCIUM-5 MCG (200 UNIT) TAB CYANOCOBALAMIN 100 MCG PO DAILY 03/03/23 03/03/23 (VITAMIN B-12) 1944 1948 Strength: 100 MCG TAB HYDROCHLOROTHIAZIDE 25 MG PO DAILY 03/03/23 03/03/23 (HYDRODIURIL) 1945 1948 Strength: 25 MG TAB APIXABAN (ELIQUIS) 5 MG PO BID 03/03/23 03/03/23 Strength: 5 MG TAB 1946 1948 ASPIRIN 81 MG PO DAILY 03/03/23 03/03/23 Strength: 81 MG TAB.CHEW 1946 1948 ATORVASTATIN (LIPITOR) 5 MG PO DAILY 03/03/23 03/03/23 Strength: 10 MG TAB 1947 1948 Current Hospital Medications: Autonomic Drugs Sig/Yas Start time Last Medication Dose Route Stop Time Status Admin Ipratropium Idabel 500 MCG RTQ2H PRN PRN 03/07 1655 AC (ATROVENT) INH 04/06 165 Formoterol Fumarate 20 MCG RTBID 03/05 1315 AC 03/07 (PERFOROMIST) NEB 04/04 1314 0744 Tamsulosin HCl 0.8 MG PC BK 03/05 1115 AC 03/07 (Flomax 0.4 mg) PO 04/04 1114 0749 Ipratropium Idabel 500 MCG RTQ4H 03/04 2000 AC 03/07 (ATROVENT) INH 03/07 1655 1045 Epinephrine 4 MG ASDIR 03/04 1700 AC (ADRENALIN CHLORIDE) IV 04/03 1659 Dextrose/Water 246 ML (DEXTROSE 5% WATER) Norepinephrine 250 ML TITRATE 03/04 1700 AC Bitartrate IV 04/03 1659 (NOREPINEPHRINE 8 MG/ NS 250 ML) Blood Formation,Coagulation Sig/Yas Start time Last Medication Dose Route Stop Time Status Admin Ferrous Sulfate 325 MG DAILY 03/07 09 AC (FERROUS SULFATE) PO 04/06 0859 Clopidogrel Bisulfate 75 MG DAILY 03/05 09 AC 03/07 (Plavix) PO 04/04 0859 0746 [...] Q12HR 03/04 2100 DC (LOPRESSOR) PO 04/03 2059 Nitroglycerin/ 250 ML ASDIR 03/04 1700 AC Dextrose IV 04/03 1659 (NITROGLYCERIN 50,000MCG/D5W 250ML) Central Nervous System Agents Sig/Yas Start time Last Medication Dose Route Stop Time Status Admin Aspirin 81 MG DAILY 03/04 2255 AC 03/07 (ASPIRIN) PO 04/03 225 0748 Acetaminophen 650 MG Q4H PRN PRN 03/04 1700 AC 03/07 (TYLENOL) PO 04/03 165 0746 Acetaminophen 650 MG Q4H PRN PRN 03/04 1700 AC (TYLENOL) RECTAL 04/03 1659 Magnesium Sulfate 100 ML ASDIR PRN 03/04 1700 AC (MAGNESIUM SULFATE IV 04/03 1659 4GM/SWFI 100ML) Magnesium Sulfate 50 ML ASDIR PRN 03/04 1700 AC (MAGNESIUM SULFATE IV 04/03 1659 2GM/SWFI 50ML) Magnesium Sulfate/ 100 ML ASDIR PRN 03/04 170 AC Dextrose IV 04/03 165 (MAGNESIUM SULFATE 1GM/D5W 100ML) Electrolytic, Caloric, And Agata Sig/Yas Start time Last Medication Dose Route Stop Time Status Admin Calcium Carbonate 1,000 MG Q6H PRN PRN 03/06 1915 AC 03/06 (TUMS CHEW TAB) PO 04/05 1914 2046 Potassium Chloride 20 MEQ STAT STA 03/06 1802 DC 03/06 (POTASSIUM CHLORIDE PO 03/06 1803 1818 20MEQ TAB.ER) Calcium Chloride 1 GM ASDIR PRN 03/04 170 AC (CALCIUM CHLORIDE) IV 04/03 165 Dextrose/Water 125 ML ASDIR PRN 03/04 1700 CKD (DEXTROSE 10% IN IV 04/03 165 WATER) Dextrose/Water 250 ML ASDIR PRN 03/04 1700 CKD (DEXTROSE 10% IN IV 04/03 165 WATER) Potassium Chloride 100 ML ASDIR PRN 03/04 1700 AC 03/04 (KCL 20MEQ/SWFI IV 04/03 165 1900 100ML) Sodium Bicarbonate 50 MEQ ASDIR PRN 03/04 1700 AC 03/04 (SODIUM BICARBONATE) IV 04/03 1659 2130 Eye, Ear, Nose And Throat (Een [...] BID 03/04 2100 AC 03/07 (COLACE) PO 04/03 2059 0746 Sennosides 17.2 MG BEDTIME 03/04 2100 AC 03/06 (Senna Lax 8.6 MG PO 04/03 TABLET) Ondansetron HCl 4 MG Q6H PRN PRN 03/04 1700 AC 03/05 (ZOFRAN) IV 04/03 1659 1342 Hormones And Synthetic Substit Sig/Yas Start time Last Medication Dose Route Stop Time Status Admin Methylprednisolone 20 MG DAILY 03/08 0900 AC Sodium Succinate IV 04/07 0859 (Solu-Medrol [...] B-12 500 PO 04/06 0859 mcg tab) Allergies: Coded Allergies: Penicillins (USE COMMENT BUTTON 03/03/23) PT STATES THAT HE WAS JUST TOLD THAT HE'S ALLERGIC TO PENICILLIN AND ITS NOT GONNA WORK FOR HIM Review of Symptoms ROS ROS comments: 14 POINT ROS REVIEWED AND NEGATIVE EXCEPT STATED ABOVE. STATES SOB, FATIGUE WITH GAIT. NO CP, ABD PAIN. +BM. Objective Physical Exam VS: Last Documented: Result Date Time B/P 146/52 03/07 1145 B/P Mean 80 03/07 1145 Pulse Ox 97 03/07 1145 Temp 99.0 03/07 1145 Pulse 75 03/07 1145 Resp 28 03/07 1145 O2 Delivery High flow nasal cannula 03/07 1045 O2 Flow Rate 4 03/07 1045 FiO2 40 03/07 0125 PATIENT WEIGHT: Weight (lb): 200 Weight (oz): 6.4 Weight (kg): 90.900 General appearance: alert, awake HEENT: anicteric, mucosal membranes moist, sclera clear Neck: supple, no JVD Cardiovascular: regular rate rhythm, S1/S2 Respiratory: aerating well, clear bilaterally Abdomen: bowel sounds present, non-distended, soft, non-tender Skin: incision (C/D/I ), dry, intact, no rash Musculoskeletal - general: Musculoskeletal - general: swelling (ble), joints normal, normal muscle mass, range of motion normal, strength testing normal, no atrophy Neuro/STONE BREAKER: alert, oriented X 3, normal speech, no motor deficits, no sensory deficits Results Findings/Data: Laboratory Tests: 03/07 03/07 03/07 03/07 1156 0856 [...] 8.3 03/07 03/07 03/06 03/06 0231 0114 2300 2107 Blood Gas Puncture Site Art Line O2 [...] 1.18 Temperature (F) 99 O2 Delivery Device Cannula Chemistry Sodium (134 - 147 mEq/L) 144 [...] L Albumin (3.4 - 5.0 g/dL) 3.40 Hematology WBC (4.5 - 11.0 x10 3/uL) [...] (Auto) (14.0 - 32.0 %) 2.7 L Grainger % (Auto) (4.8 - 9.0 %) 6.7 Eos % (Auto) (0.3 - 3.7 %) 0.0 L Baso % (Auto) (0.0 - 2.0 %) 0.0 Neut # (Auto) (2.0 - 7.6 x10 3/uL) 6.96 Lymph # (Auto) (1.0 - 3.8 x10 3/uL) 0.21 L Grainger # (Auto) (0.1 - 0.8 x10 3/uL) 0.52 Eos # (Auto) (0.0 - 0.2 x10 3/uL) 0.00 Baso # (Auto) (0.0 - 0.2 x10 3/uL) 0.00 Abs Immat Gran (auto) (0.00 - 0.03 0.06 H x10 3/uL) Add Manual Diff NO Immature Gran [...] (Auto) (14.0 - 32.0 %) 2.7 L Grainger % (Auto) (4.8 - 9.0 %) 5.2 Eos % (Auto) (0.3 - 3.7 %) 0.0 L Baso % (Auto) (0.0 - 2.0 %) 0.1 Neut # (Auto) (2.0 - 7.6 x10 3/uL) 7.00 Lymph # (Auto) (1.0 - 3.8 x10 3/uL) 0.21 L Grainger # (Auto) (0.1 - 0.8 x10 3/uL) [...] (0.0 - 0.1 x10 3/uL) 0.00 Radiology data: Recent Impressions: RADIOLOGY - XR CHEST 1 V 03/07 0511 Report Impression - Status: SIGNED Entered: 03/07/2023 9390 IMPRESSION: 1. Increased interstitial opacities compatible with edema. 2. Increased right pleural effusion with associated basilar atelectasis versus airspace disease. 3. Stable small volume left pneumothorax with thoracostomy tube in place. Stable left basilar pleuroparenchymal changes. Impression By: Wilbert Brown M.D. Diagnosis, Assessment Plan Free Text A P: Pt is a 72 yr old male admitted [...] you for allowing us to particapte in [facility] care of the pt. Will continue to follow. at 9314 RPT #:[id number] END OF REPORT [facility] 2023-03-07 13:00:00 [facility] ([facility]) Pulmonology Progress Note REPORT#:[id number] REPORT STATUS: Signed DATE:03/07/23 TIME: 1300 PATIENT: TEVIN NYE UNIT #: [id number] ROOM/BED: [place] [id number] : 51 AGE: 72 SEX: M ATTEND: Luci Beyer MD ADM AUTHOR: Sharmila Alan * ALL edits or amendments must be made on the electronic/computer document * Subjective Comments: On NC, sitting in chair, feels better ROS All systems rev neg: except as marked Objective General VS/I O: Last Documented: Result Date Time B/P 146/52 03/07 [...] scale Measurement Method PATIENT WEIGHT: Weight (lb): 200 Weight (oz): 6.4 Weight (kg): 90.900 Medications: Active Meds + DC'd Last 24 Hrs Methylprednisolone Sodium Succinate (Solu-Medrol 40 MG Vial) 20 MG DAILY IV Metoprolol Tartrate (LOPRESSOR) 12.5 MG Q12HR PO Ipratropium Idabel (ATROVENT) 500 MCG RTQ2H PRN PRN INH [...] ASDIR IV (CKD) Dextrose/Water (D5%W NON-DEHP) 250 ML Pantoprazole (PROTONIX) 40 MG DAILY@0600 PO Aspirin (ASPIRIN) 81 MG DAILY PO Docusate Sodium (COLACE) 100 MG BID PO Metoprolol Tartrate (LOPRESSOR) 12.5 MG Q12HR PO (DC) Sennosides (Senna Lax 8.6 MG TABLET) 17.2 MG BEDTIME PO Ipratropium Idabel (ATROVENT) 500 MCG RTQ4H INH Acetaminophen (TYLENOL) [...] ASDIR IV Dextrose/Water (DEXTROSE 5% WATER) 246 ML Glucagon (GLUCAGON) 1 MG ASDIR PRN IM Insulin Human Regular (HumuLIN R) 100 UNIT ASDIR IV (CKD) Sodium Chloride (SODIUM CHLORIDE 0.9%) 99 ML Magnesium Sulfate (MAGNESIUM SULFATE 4GM/SWFI 100ML) 100 [...] BICARBONATE) 50 MEQ ASDIR PRN IV Physical Exam General appearance: alert, awake, oriented, no acute distress Head/eyes: atraumatic, normocephalic, PERRL Neck: supple/no meningismus, no bruit/NL carotids, no JVD, no lymphadenopathy Cardiovascular: normal S1/S2, no rub, no gallop Respiratory/chest: decreased breath sounds, prolonged exp phase, wheezing, symmetric expansion Abdomen: soft, normal bowel sounds, no distention, no guarding Extremities: no clubbing, no cyanosis Neuro/STONE BREAKER: alert, oriented X 3, no motor deficits Skin: dry, normal color Psychiatry: normal affect, no hallucinations Results Findings/Data: Laboratory Tests 03/07/23 0856: [Embedded Image Not Available] 03/07/23 0231: [Embedded Image Not Available] 03/06/23 1955: [Embedded Image Not Available] 03/06/23 1606: [Embedded Image Not Available] Laboratory Tests 03/07 03/06 03/06 0236 2107 1607 [...] 03/07 03/07 03/07 1156 0856 0809 0236 0231 Chemistry Sodium (134 - 147 mEq/L) 144 144 [...] L Total Alk Phosphatase (20 - 125 41 IUnit/L) Total Protein (6.4 - 8.2 g/dL) 5.7 L Albumin (3.4 - 5.0 g/dL) 3.40 03/07 03/06 03/06 03/06 03/06 0114 2305 2107 1955 1607 Chemistry Sodium (134 - 147 mEq/L) 145 [...] - 32.0 %) 2.7 L 2.7 L Grainger % (Auto) (4.8 - 9.0 %) 6.7 5.2 Eos % (Auto) (0.3 - 3.7 %) 0.0 L 0.0 L Baso % (Auto) (0.0 - 2.0 %) 0.0 0.1 Neut # (Auto) (2.0 - 7.6 x10 3/uL) 6.96 7.00 Lymph # (Auto) (1.0 - 3.8 x10 3/uL) 0.21 L 0.21 L Grainger # (Auto) (0.1 - 0.8 x10 3/uL) [...] - 0.1 x10 3/uL) 0.00 0.00 Radiology data: Recent Impressions: RADIOLOGY - XR CHEST 1 V 03/07 9759 Report Impression - Status: SIGNED Entered: 03/07/2023 7713 IMPRESSION: 1. Increased interstitial opacities compatible with edema. 2. Increased right pleural effusion with associated basilar atelectasis versus airspace disease. 3. Stable small volume left pneumothorax with thoracostomy tube in place. Stable left basilar pleuroparenchymal changes. Impression By: Wilbert Brown M.D. 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 Need repeat CT chest in 6-8 weeks. Patient informed - Monitor renal function, nephrology following. Need diuresis - CXR noted with pulm edema - PT/OT at 1303 RPT #:[id number] END OF REPORT [facility] 2023-03-07 12:02:00 [facility] Cardiothoracic Surgery Prog REPORT#:[id number] REPORT STATUS: Signed DATE:03/07/23 TIME: 1202 PATIENT: TEVIN NYE UNIT #: [id number] ROOM/BED: [place] [address] : 51 AGE: 73 SEX: M ATTEND: Luci Beyer MD ADM AUTHOR: Luci Beyer MD * ALL edits or amendments must be made on the electronic/computer document * General Post-op: day 3 Status post: 03/04/23 CABG x 4 (MCCORMICK-LAD,SVG-Leana, SVG-OM, SVG-PDA) ZANE PEREA (LGSV) Posterior pericardiotomy Subjective Chief complaint: chest pain Follow up CABG Review of Systems Constitutional: Denies: chills, fatigue, generalized weakness. Skin: Denies: abrasion, bruising, laceration. Allergy/Immun: Denies: allergic reaction, anaphylaxis, rhinorrhea. Eyes: Denies: redness, visual loss/blurred, eye pain. ENT: Denies: ear ringing, throat swelling, toothache. Respiratory: Denies: [place] (dyspnea on exertion), pneumonia, SOB. Cardiovascular: Denies: chest pain, edema, orthopnea. GI: Denies: abdominal pain, anorexia, melena, nausea. : Denies: dysuria, flank pain. Musculoskeletal: Denies: arthritis, extremity pain, lumbar pain. Heme: Denies: adenopathy, bleeding, petechiae. Endocrine: Denies: cold intolerance, polydipsia, weight gain. Neuro: Denies: confusion, dizziness, seizure, syncope. All systems rev neg: except as marked Objective General VS/I O Last Documented: Result Date Time B/P 146/52 03/07 [...] scale Measurement Method PATIENT WEIGHT: Weight (lb): 200 Weight (oz): 6.4 Weight (kg): 90.900 Dietitian Nutrition assessment The data set between the solid lines has been imported from the dietitian's assessment. BMI Calculated: 31.4 Nutrition related diagnosis: Nutrition diagnosis details: Nutrition problem: Increased nutrient needs Nutrition etiology: Acute illness Nutrition signs and symptoms: ESTIMATED NEEDS S/P SURGERY Nutrition prescription: 1. RECOMMEND ADVANCE TO A CCD5 CARDIAC DIET APPROPRIATE. 2. PROVIDE GLUCERNA TID WITH MEALS. 3. HEALTHY HEART DIET EDUCATION PRIOR TO DISCHARGE. 4. MONITOR PO, WT, LABS, BM. Dietitian name: Purvi Garay, DIET Assessment completed: 03/05/23 Physical Exam General appearance: alert, awake, oriented Wound/incision: Location: sternal Site condition: dressing clean dry, dressing intact HEENT: anicteric, mucosal membranes moist, pupils reactive to light Neck: full range of motion, non-tender Cardiovascular: irregular rhythm, normal heart sounds, regular rate rhythm Respiratory: decreased breath sounds, aerating well, symmetric expansion Abdomen: soft, non-tender Genitourinary: no bladder distention Extremities: dry, moves all Musculoskeletal: full range of motion Neuro/STONE BREAKER: alert, oriented X 3 Skin: dry, intact Psychiatry: normal affect, normal mood Current Medications Medications: Active Meds + DC'd Last 24 Hrs Methylprednisolone Sodium Succinate (Solu-Medrol 40 MG Vial) 20 MG DAILY IV (UNVr) Metoprolol Tartrate (LOPRESSOR) 12.5 MG Q12HR PO (UNV) Ipratropium Idabel (ATROVENT) 500 MCG RTQ2H PRN PRN INH [...] ASDIR IV (CKD) Dextrose/Water (D5%W NON-DEHP) 250 ML Pantoprazole (PROTONIX) 40 MG DAILY@0600 PO Aspirin (ASPIRIN) 81 MG DAILY PO Docusate Sodium (COLACE) 100 MG BID PO Metoprolol Tartrate (LOPRESSOR) 12.5 MG Q12HR PO (DC) Sennosides (Senna Lax 8.6 MG TABLET) 17.2 MG BEDTIME PO Ipratropium Idabel (ATROVENT) 500 MCG RTQ4H INH Acetaminophen (TYLENOL) [...] ASDIR IV Dextrose/Water (DEXTROSE 5% WATER) 246 ML Glucagon (GLUCAGON) 1 MG ASDIR PRN IM Insulin Human Regular (HumuLIN R) 100 UNIT ASDIR IV (CKD) Sodium Chloride (SODIUM CHLORIDE 0.9%) 99 ML Magnesium Sulfate (MAGNESIUM SULFATE 4GM/SWFI 100ML) 100 [...] CHLORIDE 0.9%) 250 ML Q24H IV (DC) Results Findings/Data: Laboratory Tests 03/07 03/06 03/06 0236 2103 1606 Blood Gas Puncture Site Art Line Art [...] 03/07 03/07 03/07 0856 0809 0236 0231 0114 Chemistry Sodium (134 - 147 mEq/L) 144 144 [...] - 32.0 %) 2.7 L 2.7 L Grainger % (Auto) (4.8 - 9.0 %) 6.7 5.2 Eos % (Auto) (0.3 - 3.7 %) 0.0 L 0.0 L Baso % (Auto) (0.0 - 2.0 %) 0.0 0.1 Neut # (Auto) (2.0 - 7.6 x10 3/uL) 6.96 7.00 Lymph # (Auto) (1.0 - 3.8 x10 3/uL) 0.21 L 0.21 L Grainger # (Auto) (0.1 - 0.8 x10 3/uL) [...] - 0.1 x10 3/uL) 0.00 0.00 Radiology data: Recent Impressions: RADIOLOGY - XR CHEST 1 V 03/07 0511 Report Impression - Status: SIGNED Entered: 03/07/2023 0758 IMPRESSION: 1. Increased interstitial opacities compatible with edema. 2. Increased right pleural effusion with associated basilar atelectasis versus airspace disease. 3. Stable small volume left pneumothorax with thoracostomy tube in place. Stable left basilar pleuroparenchymal changes. Impression By: Wilbert Brown M.D. Results: labs reviewed, vital signs stable, rythm personally rev'd, x-ray personally reviewed, current med profile rev'd Diagnosis, Assessment Plan Hospital course to date: This is a pleasant 72 year old male with past medical history of hypertension, dyslipidemia, DM-2 (on insulin), former smoker (quit 2018), BPH, prostate CA s/p radiation, COPD (uses inhaler at home, no home oxygen), and PE (November 2022 on eliquis) who presented to [facility] with chest pain, dyspnea on exertion, and NSTEMI. Coronary angiogram was done and revealed severe multivessel coronary artery disease. Patient was then transferred to [facility] for CV surgery evaluation and need for CABG. 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 The surgery, risks involved, STS score, benefits, complications and alternatives were explained to the patient and his brother. He acknowledged understanding and is willing to proceed. We will tentatively schedule him for surgery tomorrow morning. Further recommendations to follow. 03/04/23 CABG x 4 (MCCORMICK-LAD,SVG-Leana, SVG-OM, SVG-PDA) ALAA EVH (LGSV) Posterior pericardiotomy 03/05/23 POD 1 Patient alert, awake, and oriented Labs and CXR reviewed On bipap 12/5 40%, wean off as tolerated Trend abgs Wean off levo as tolerated Keep both chest tubes Monitor strict I Os and renal function PT/OT, ambulate, OOB in chair DVT ppx with SCDs Monitor patient closely in CVICU 03/06/23 POD 2 Patient in stable condition CXR and labs reviewed HGB 6.6, transfuse 2 units PRBC Discontinue dopamine drip Echocardiogram Discontinue both chest tubes CR increasing, renal following, UOP 25 cc/hr OOB in chair Monitor closely in CVICU 03/07/23 POD 3 Patient alert, awake, and oriented, no complaints Labs and CXR reviewed On 2l nasal cannula, encourage I-S use Hgb stable 10.1 Discontinue left pleural chest tube On amio drip 0.5 Monitor renal function, Cr 2.9 Consult rehab Ambulate patient with PT/OT Keep patient in CVICU Consultants: anesthesiology, cardiology, cardiovascular surgery, critical/ director of search engine marketing, hospitalist at 1732 RPT #:[id number] END OF REPORT [facility] 2023-03-07 11:25:00 [facility] Critical Care Progress Note REPORT#:[id number] REPORT STATUS: Signed DATE:03/07/23 TIME: 1125 PATIENT: TEVIN NYE UNIT #: [id number] ROOM/BED: [place] [id number] : 51 AGE: 72 SEX: M ATTEND: Luci Beyer MD ADM AUTHOR: Dina Mccain MD * ALL edits or amendments must be made on the electronic/computer document * Subjective Chief complaint: Dyspnea Wheezing Chest pain/Unstable angina HPI: Tevin Nye is a 72-year-old gentleman [...] isolation of left atrial appendage. He came out of the OR with norepinephrine at 4 mcg [...] dose was at 3:15 PM. Patient was given hydrocortisone 100 mg IV at 2:45 PM for chronic steroid dependence. He is currently on assist-control at 18 tidal volume 480 PEEP of 5 and 50% FiO2 and is moving tidal volumes at 470+. Vital signs are stable with heart rate 82 sinus rhythm, blood pressure 95/41 mmHg, pulse ox 100% while on 50% FiO2 and respiratory rate is 14. Chest tube output is minimal at 3 mm each. Patient was ordered albumin 25% to 50 mL. Pupils are bilaterally symmetrical and reactive to light measuring 3 mm on each side. Lab work upon arrival in the CVICU room # [id number] revealed a potassium of 3.3, glucose 230, creatinine 1.46 mg/dL, hemoglobin of 6.9 g/dL and hematocrit of 20%. Tevin Gonzalez is a 72 y.o. male with PMH of hypertension, dyslipidemia, diabetes, former smoker (quit 2008), BPH, prostate CA s/p radiation, COPD (uses inhaler at home, no home oxygen), and PE (November 2022 on eliquis) who presented to [facility] with chest pain, dyspnea on exertion, and NSTEMI. Coronary angiogram was done and revealed severe multivessel coronary artery disease. Patient was then transferred to [facility] for CV surgery evaluation and need for [...] isolation of left atrial appendage on 03/04/2023. Comments: Interval history- Patient is not on any pressors Will discontinue chest tube Making good urine Objective General VS/I O Last Documented: Result Date Time B/P 140/48 03/07 111 B/P Mean 73 03/07 1115 Pulse Ox 98 03/07 111 Temp 37.2 03/07 1115 Pulse 65 03/07 [...] scale Measurement Method PATIENT WEIGHT: Weight (lb): 200 Weight (oz): 6.4 Weight (kg): 90.900 Medications: Active Meds + DC'd Last 24 Hrs Ipratropium Idabel (ATROVENT) 500 MCG RTQ2H PRN PRN INH [...] ASDIR IV (CKD) Dextrose/Water (D5%W NON-DEHP) 250 ML Pantoprazole (PROTONIX) 40 MG DAILY@0600 PO Aspirin (ASPIRIN) 81 MG DAILY PO Docusate Sodium (COLACE) 100 MG BID PO Metoprolol Tartrate (LOPRESSOR) 12.5 MG Q12HR PO (DC) Sennosides (Senna Lax 8.6 MG TABLET) 17.2 MG BEDTIME PO Ipratropium Idabel (ATROVENT) 500 MCG RTQ4H INH Acetaminophen (TYLENOL) [...] ASDIR IV Dextrose/Water (DEXTROSE 5% WATER) 246 ML Glucagon (GLUCAGON) 1 MG ASDIR PRN IM Insulin Human Regular (HumuLIN R) 100 UNIT ASDIR IV (CKD) Sodium Chloride (SODIUM CHLORIDE 0.9%) 99 ML Magnesium Sulfate (MAGNESIUM SULFATE 4GM/SWFI 100ML) 100 [...] 0.9%) 250 ML Q24H IV (DC) Physical Exam Head/eyes: EOMI, PERRL Cardiovascular: normal capillary refill, normal heart sounds, regular rate and rhythm, normal S1/S2 Respiratory: aerating well, clear to auscultation, symmetric expansion Abdomen: soft, non-tender Genitourinary: urinary catheter, no bladder distention Extremities: no clubbing, no cyanosis, no edema Skin: abnormal temperature, dry, no rash Psychiatry: unable to evaluate Results Findings/data: Laboratory Tests 03/07 03/06 03/06 0236 2107 1607 [...] 03/07 03/07 03/07 0856 0809 0236 0231 0114 Chemistry Sodium (134 - 147 mEq/L) 144 144 [...] - 32.0 %) 2.7 L 2.7 L Grainger % (Auto) (4.8 - 9.0 %) 6.7 5.2 Eos % (Auto) (0.3 - 3.7 %) 0.0 L 0.0 L Baso % (Auto) (0.0 - 2.0 %) 0.0 0.1 Neut # (Auto) (2.0 - 7.6 x10 3/uL) 6.96 7.00 Lymph # (Auto) (1.0 - 3.8 x10 3/uL) 0.21 L 0.21 L Grainger # (Auto) (0.1 - 0.8 x10 3/uL) [...] x10 3/uL) 0.00 0.00 Laboratory Tests 03/07/23 0856: [Embedded Image Not Available] 03/07/23 0231: [Embedded Image Not Available] 03/06/23 1955: [Embedded Image Not Available] 03/06/23 1606: [Embedded Image Not Available] Radiology data Recent Impressions: RADIOLOGY - XR CHEST 1 V 03/07 0511 Report Impression - Status: SIGNED Entered: 03/07/2023 0758 IMPRESSION: 1. Increased interstitial opacities compatible with edema. 2. Increased right pleural effusion with associated basilar atelectasis versus airspace disease. 3. Stable small volume left pneumothorax with thoracostomy tube in place. Stable left basilar pleuroparenchymal changes. Impression By: Wilbert Brown M.D. Diagnosis, Assessment Plan Free text A P: Problem List: Chest pain Wheezing Dyspnea Multivessel coronary artery disease Non-ST elevation UT Status post CABG x5 and ILAA Elective ventilator dependence Acute pulmonary insufficiency following major cardiothoracic surgery Acute blood loss anemia Metabolic acidosis Lactic acidosis Hypokalemia Hyperglycemia Chronic steroid dependence Severe left carotid stenosis History of severe COPD Assessment and Plan: Tevin [...] isolation of left atrial appendage. He came out of the OR with norepinephrine at 4 mcg [...] dose was at 3:15 PM. Patient was given hydrocortisone 100 mg IV at 2:45 PM for chronic steroid dependence. He is currently on assist-control at 18 tidal volume 480 PEEP of 5 and 50% FiO2 and is moving tidal volumes at 470+. Vital signs are stable with heart rate 82 sinus rhythm, blood pressure 95/41 mmHg, pulse ox 100% while on 50% FiO2 and respiratory rate is 14. Chest tube output is minimal at 3 mm each. Patient was ordered albumin 25% to 50 mL. Pupils are bilaterally symmetrical and reactive to light measuring 3 mm on each side. Lab work upon arrival in the CVICU room # 2201 revealed a potassium of 3.3, glucose 230, creatinine 1.46 mg/dL, hemoglobin of 6.9 g/dL and hematocrit of 20%. Tevin Gonzalez is a 72 y.o. male with PMH of hypertension, dyslipidemia, diabetes, former smoker (quit 2008), BPH, prostate CA s/p radiation, COPD (uses inhaler at home, no home oxygen), and PE (November 2022 on eliquis) who presented to [facility] with chest pain, dyspnea on exertion, and NSTEMI. Coronary angiogram was done and revealed severe multivessel coronary artery disease. Patient was then transferred to [facility] for CV surgery evaluation and need for [...] postop day 0 after CABG x5 and ILAA Has severe left carotid stenosis Optimize systolic blood pressure to greater than 130 mmHg Patient was on chronic steroid therapy with Solu-Medrol Adrenal cortical support with hydrocortisone 25 mg IV every 8 hours Has acute blood loss anemia with a hemoglobin of 6.9 g/dL Transfuse 2 units of packed red cells Patient received Hydrocortisone 100 mg IV at 2:45 PM Start on Hydrocortisone 25 mg every 8 hours Also received parasternal block Currently on assist-control at 18 tidal volume 480 PEEP of 5 and 50% FiO2 Latest blood gas shows a pH of 7.28, pCO2 of 43 mmHg, pO2 of 175 mmHg and bicarbonate of 20 mmol with base excess at -6.5 Patient has been ordered 1 amp of sodium bicarbonate Recheck ABGs in 1 hour Chest tube output is minimal at 3 mL in both left pleural and mediastinal chest tube Blood pressure is low upon arrival at 95/41 mm of Hg Optimize blood pressure with Norepinephrine, titrate to a map of 70 or greater Avoid sedation Monitor chest tube output Pupils are bilaterally symmetrical and reactive to light measuring 3 mm on each side Replete potassium, check magnesium and ionized calcium Follow BMP Glycemic control with insulin drip, latest blood glucose is 230 mg/dL SCDs for DVT prophylaxis Noé Madrid MD [facility] 03/04/2023 6.32 PM 03/07/2023 Neurologically patient is at baseline. Pain well controlled On NC 2 L during the day and BiPAP at night. ABG and CXR reviewed. small right pleural effusion seen Continue duonebs, wean steroids to daily, pulmonary following In SR, stop amiodarone drip, continue beta she 12.5 mg metoprolol and amidoarone 400 BID LFTs within normal limits. Continue aspirin and Plavix. PPI daily. Discontinue the left pleural chest tube. No bowel movement yet. Abdomen soft. Give milk of mag. Creatinine is downtrending and is now 2.8. Continue to monitor the urine output. Renal following. Hold nephrotoxic medications. On insulin drip since he is on steroids. Continue to monitor for now. SCDs for DVT prophylaxis. Rehab evaluation Total critical care time 45 minutes excluding procedures Consultants: anesthesiology, cardiology, cardiovascular surgery, critical/ director of search engine marketing, hospitalist at 1139 RPT #:[id number] END OF REPORT [facility] 2023-03-07 06:50:00 [facility] ([facility] Cardiology Progress Note REPORT#:[id number] REPORT STATUS: Signed DATE:03/07/23 TIME: 0650 PATIENT: TEVIN NYE UNIT #: [id number] ROOM/BED: [place] [id number] : 51 AGE: 72 SEX: M ATTEND: Luci Beyer MD ADM AUTHOR: Anuj Sylvester MD * ALL edits or amendments must be made on the electronic/computer document * Subjective Chief complaint: Better Objective General VS/I O: 24 hour I O ending at 0700: [...] 03/07 0630 67 23 164/102 126 93 06/30 0615 150/62 88 06/30 0615 63 24 130/66 92 100 / 0600 131/66 93 / 0600 65 19 142/61 85 99 /30 0545 131/65 93 /30 0545 65 19 136/60 82 99 06/30 0530 141/65 93 /30 0530 63 20 149/118 121 100 / 0515 154/73 105 /30 0515 71 26 95 06/30 0513 154/68 98 06/30 0513 72 30 158/59 88 90 /30 0500 66 19 144/14 68 06/30 0445 158/74 107 06/30 0445 66 21 100 06/30 0430 156/72 103 06/30 0430 62 25 162/65 95 100 /30 0415 138/68 97 /30 0415 66 20 156/62 91 99 06/30 0400 140/65 97 06/30 0400 62 21 154/60 89 99 06/30 0353 62 21 153/60 89 99 /30 0345 151/70 101 06/30 0345 64 22 [...] 06/29 2245 64 18 152/61 89 97 06/29 2230 142/70 98 06/29 2230 65 20 152/60 89 96 06/29 2215 141/69 99 06/29 2215 64 20 154/60 89 96 06/29 2200 140/67 97 06/29 2200 63 19 155/60 89 96 06/29 2145 69 20 95 06/29 2130 147/70 100 06/29 2130 65 21 160/61 93 95 06/29 2115 160/75 108 06/29 2115 69 24 93 03/06 2100 70 25 93 03/06 2045 151/71 105 03/06 2045 66 20 163/64 95 96 03/06 2030 156/74 106 03/06 2030 66 20 166/64 96 95 03/06 2015 141/70 100 06 2015 66 19 160/62 92 95 061999 99.0 061999 Nasal 2 cannula 03/06 2000 144/68 98 [...] 152/55 84 99 03/06 1500 149/72 102 03/06 1500 99.5 75 24 160/58 88 96 [...] 1315 99.3 82 21 152/53 82 94 03/06 1300 131/63 91 03/06 1300 99.3 84 19 126/52 76 93 03/06 1245 141/69 95 03/06 1245 99.3 80 20 151/53 81 97 03/06 1230 137/65 93 03/06 1230 99.3 85 24 143/57 85 94 03/06 1215 148/70 101 03/06 1215 99.3 83 24 166/61 93 94 03/06 1200 152/66 95 03/06 1200 99.1 81 24 148/52 82 96 03/06 1145 124/59 85 03/06 1145 99.1 87 26 136/53 79 92 03/06 1130 126/58 83 03/06 1130 99.1 89 19 144/57 84 94 03/06 1128 94 High flow 3 nasal cannula 03/06 1115 135/65 93 03/06 1115 99.0 93 14 148/54 83 94 03/06 1100 132/60 87 03/06 1100 99.1 87 15 139/52 78 94 06 1046 100/53 74 03/06 1046 99.1 78 27 103/46 63 96 03/06 1030 106/51 74 03/06 1030 99.1 80 16 130/48 73 96 03/06 1015 132/60 87 03/06 1015 99.1 80 19 142/52 80 97 / 1000 118/59 80 03/06 1000 99.3 82 [...] 144/65 88 94 PATIENT WEIGHT: Weight (lb): 200 Weight (oz): 6.4 Weight (kg): 90.900 Medications: Active Meds + DC'd Last 24 Hrs Ipratropium Idabel (ATROVENT) 500 MCG RTQ2H PRN PRN INH [...] Sodium Chloride (SODIUM CHLORIDE 0.9%) 1,000 ML .[id number] IV (DC) Budesonide (PULMICORT RESPULES) 0.5 MG [...] ASDIR IV (CKD) Dextrose/Water (D5%W NON-DEHP) 250 ML Pantoprazole (PROTONIX) 40 MG DAILY@0600 PO Aspirin (ASPIRIN) 81 MG DAILY PO Amiodarone HCl (CORDARONE) 200 MG TID PO (DC) Docusate Sodium (COLACE) 100 MG BID PO Metoprolol Tartrate (LOPRESSOR) 12.5 MG Q12HR PO Sennosides (Senna Lax 8.6 MG TABLET) 17.2 MG BEDTIME PO Ipratropium Idabel (ATROVENT) 500 MCG RTQ4H INH Acetaminophen (TYLENOL) [...] ASDIR IV Dextrose/Water (DEXTROSE 5% WATER) 246 ML Glucagon (GLUCAGON) 1 MG ASDIR PRN IM Insulin Human Regular (HumuLIN R) 100 UNIT ASDIR IV (CKD) Sodium Chloride (SODIUM CHLORIDE 0.9%) 99 ML Magnesium Sulfate (MAGNESIUM SULFATE 4GM/SWFI 100ML) 100 [...] 0.9%) 250 ML Q24H IV (DC) Physical Exam General appearance: alert, awake Neck: full range of motion, non-tender, normal thyroid, supple/no meningismus, no bruit/NL carotids, no JVD, no lymphadenopathy, no masses or swelling Cardiovascular: CV assessment: regular rate and rhythm Respiratory: decreased breath sounds, clear to auscultation Abdomen: non-tender, normal bowel sounds, no distention, no guarding, no mass/ organomegaly, no pulsatile mass, no rebound Upper extremity: UE assessment: normal capillary refill, no edema Lower extremity: LE assessment: normal capillary refill, no edema Results Findings/Data: Laboratory Tests 03/07 03/06 03/06 03/06 0236 2107 [...] L Albumin (3.4 - 5.0 g/dL) 3.40 06/03/06 1607 1351 1205 1039 Chemistry Sodium (134 [...] - 32.0 %) 2.7 L 2.7 L Grainger % (Auto) (4.8 - 9.0 %) 6.7 5.2 Eos % (Auto) (0.3 - 3.7 %) 0.0 L 0.0 L Baso % (Auto) (0.0 - 2.0 %) 0.0 0.1 Neut # (Auto) (2.0 - 7.6 x10 3/uL) 6.96 7.00 Lymph # (Auto) (1.0 - 3.8 x10 3/uL) 0.21 L 0.21 L Grainger # (Auto) (0.1 - 0.8 x10 3/uL) [...] 3/uL) 0.00 0.00 Laboratory Tests 03/07 03/06 0231 1955 Chemistry Magnesium (1.80 - 2.40 mg/dL) 2.71 H 2.53 H 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 Free Text DxA P Notes Free Text DxA P Notes: 1- Severe COPD with exacerbation: As per Pulm 2- Recent pulmonary embolism on Eliquis 3- NSTEMI/Multivessel coronary artery disease: S/P CBBG, extubated and doing fair 5- Hypertension" Will add Norvasc 5mg and increase Metoprolol to 25 BID 6- History of tobacco use 7. Wide complex tachy: Asymptomatic and suggests AFIB/SVT with aberrancy. Respomded to bolus of IV Amio. will increase po amio 8. Acute on chronic renal failure at 0654 RPT #:[id number] END OF REPORT [facility] 2023-03-06 18:26:00 [facility] ([facility]) Pulmonology Progress Note REPORT#:[id number] REPORT STATUS: Signed DATE:03/06/23 TIME: 1825 PATIENT: TEVIN NYE UNIT #: [id number] ROOM/BED: [facility] : [facility] AGE: 72 SEX: M ATTEND: Luci Beyer MD ADM AUTHOR: Sharmila Alan * ALL edits or amendments must be made on the electronic/computer document * Subjective Comments: On NC, feels better, no distress ROS All systems rev neg: except as marked Objective General VS/I O: Last Documented: Result Date Time B/P 134/62 03/06 [...] scale Measurement Method PATIENT WEIGHT: Weight (lb): 198 Weight (oz): 3.13 Weight (kg): 89.811 Medications: Active Meds + DC'd Last 24 Hrs Ipratropium Idabel (ATROVENT) 500 MCG RTQ2H PRN PRN INH [...] Sodium Chloride (SODIUM CHLORIDE 0.9%) 1,000 ML .[id number] IV (DC) Budesonide (PULMICORT RESPULES) 0.5 MG [...] ASDIR IV (CKD) Dextrose/Water (D5%W NON-DEHP) 250 ML Pantoprazole (PROTONIX) 40 MG DAILY@0600 PO Aspirin (ASPIRIN) 81 MG DAILY PO Amiodarone HCl (CORDARONE) 200 MG TID PO (DC) Docusate Sodium (COLACE) 100 MG BID PO Metoprolol Tartrate (LOPRESSOR) 12.5 MG Q12HR PO Sennosides (Senna Lax 8.6 MG TABLET) 17.2 MG BEDTIME PO Ipratropium Idabel (ATROVENT) 500 MCG RTQ4H INH Acetaminophen (TYLENOL) [...] ASDIR IV Dextrose/Water (DEXTROSE 5% WATER) 246 ML Glucagon (GLUCAGON) 1 MG ASDIR PRN IM Insulin Human Regular (HumuLIN R) 100 UNIT ASDIR IV (CKD) Sodium Chloride (SODIUM CHLORIDE 0.9%) 99 ML Magnesium Sulfate (MAGNESIUM SULFATE 4GM/SWFI 100ML) 100 [...] 0.9%) 250 ML Q24H IV (DC) Physical Exam General appearance: alert, awake, oriented, no acute distress Head/eyes: atraumatic, normocephalic, PERRL Neck: supple/no meningismus, no bruit/NL carotids, no JVD, no lymphadenopathy Cardiovascular: normal S1/S2, no rub, no gallop Respiratory/chest: decreased breath sounds, prolonged exp phase, wheezing, symmetric expansion Abdomen: soft, normal bowel sounds, no distention, no guarding Extremities: no clubbing, no cyanosis Neuro/STONE BREAKER: alert, oriented X 3, no motor deficits Skin: dry, normal color Psychiatry: normal affect, no hallucinations Results Findings/Data: Laboratory Tests 03/06/23 1606: [Embedded Image Not Available] 03/06/23 0313: [Embedded Image Not Available] 03/06/23 0118: [Embedded Image Not Available] 03/05/23 2334: [Embedded Image Not Available] 03/05/23 2254: [Embedded Image Not Available] Laboratory Tests 03/06 03/06 03/06 03/06 1607 6459 0547 0111 Blood Gas Puncture Site Art [...] Device Cannula Cannula 2L HFNC 4L HFNC 03/058 2007 Blood Gas Puncture Site Art Line [...] 03/06 03/06 03/05 03/05 0547 0313 0111 5684 4506 Chemistry Sodium (134 - 147 mEq/L) 148 [...] Albumin (3.4 - 5.0 g/dL) 3.40 03/05 Chemistry POC Creatinine (0.8 - 1.3 mg/dL) [...] %) 2.7 L 4.2 L 3.2 L Grainger % (Auto) (4.8 - 9.0 %) 5.2 9.8 H 8.4 Eos % (Auto) (0.3 - 3.7 %) 0.0 L 0.0 L 0.0 L Baso % (Auto) (0.0 - 2.0 %) 0.1 0.0 0.0 Neut # (Auto) (2.0 - 7.6 x10 3/uL) 7.00 3.22 4.05 Lymph # (Auto) (1.0 - 3.8 x10 3/uL) 0.21 L 0.16 L 0.15 L Grainger # (Auto) (0.1 - 0.8 x10 3/uL) [...] 53.7 Ur Random Sodium (MEQ/L) 14 Radiology data: Recent Impressions: RADIOLOGY - XR CHEST 1 V 03/06 0639 Report Impression - Status: SIGNED Entered: 03/06/2023 0805 IMPRESSION: 1. Grossly stable exam. 2. Stable small left pneumothorax involving less than 10% volume. Stable left chest tube. Impression By: [email or web address] - Bon Spangler M.D. Results: x-ray personally reviewed Diagnosis, Assessment Plan Free Text A P: 1- Acute COPD exacerbation/postop respiratory insufficiency 2- Recent pulmonary embolism on Eliquis 3- NSTEMI/Multivessel coronary artery disease 5- Hypertension 6- History of tobacco use 7- Obesity 8- Acute renal failure 9- S/P CABG X4 03/04/23 - BIPAP support as needed, - Taper IV Solu-Medrol 20 mg every 12 hours - Continue Pulmicort Perforomist and Atrovent nebulizers - Chest tubes per CTS - Mucomyst/Hypersal as needed - CTA chest reviewed, no PE, emphysema, small effusions, RLL 1.5 cm Nodule. Need repeat CT chest in 6-8 weeks. Patient informed - Monitor renal function, nephrology following - D/W ICC at 1827 RPT #:[id number] END OF REPORT [facility] 2023-03-06 18:09:00 [facility] ([facility]) Cardiothoracic Surgery Prog REPORT#:[id number] REPORT STATUS: Signed DATE:03/06/23 TIME: 1809 PATIENT: TEVIN NYE UNIT #: [id number] ROOM/BED: [place] [address] : 51 AGE: 73 SEX: M ATTEND: Luci Beyer MD ADM AUTHOR: Luci Beyer MD * ALL edits or amendments must be made on the electronic/computer document * General Post-op: day 2 Status post: 03/04/23 CABG x 4 (MCCORMICK-LAD,SVG-Leana, SVG-OM, SVG-PDA) ZANE PEREA (LGSV) Posterior pericardiotomy Subjective Chief complaint: chest pain Follow up CABG Review of Systems Constitutional: Denies: chills, fatigue, generalized weakness. Skin: Denies: abrasion, bruising, laceration. Allergy/Immun: Denies: allergic reaction, anaphylaxis, rhinorrhea. Eyes: Denies: redness, visual loss/blurred, eye pain. ENT: Denies: ear ringing, throat swelling, toothache. Respiratory: Denies: [place] (dyspnea on exertion), pneumonia, SOB. Cardiovascular: Denies: chest pain, edema, orthopnea. GI: Denies: abdominal pain, anorexia, melena, nausea. : Denies: dysuria, flank pain. Musculoskeletal: Denies: arthritis, extremity pain, lumbar pain. Heme: Denies: adenopathy, bleeding, petechiae. Endocrine: Denies: cold intolerance, polydipsia, weight gain. Neuro: Denies: confusion, dizziness, seizure, syncope. All systems rev neg: except as marked Objective General VS/I O Last Documented: Result Date Time B/P 134/62 03/06 [...] scale Measurement Method PATIENT WEIGHT: Weight (lb): 198 Weight (oz): 3.13 Weight (kg): 89.811 Dietitian Nutrition assessment The data set between the solid lines has been imported from the dietitian's assessment. BMI Calculated: 31.0 Nutrition related diagnosis: Nutrition diagnosis details: Nutrition problem: Increased nutrient needs Nutrition etiology: Acute illness Nutrition signs and symptoms: ESTIMATED NEEDS S/P SURGERY Nutrition prescription: 1. RECOMMEND ADVANCE TO A CCD5 CARDIAC DIET APPROPRIATE. 2. PROVIDE GLUCERNA TID WITH MEALS. 3. HEALTHY HEART DIET EDUCATION PRIOR TO DISCHARGE. 4. MONITOR PO, WT, LABS, BM. Dietitian name: Purvi Garay, DIET Assessment completed: 03/05/23 Physical Exam General appearance: alert, awake, oriented Wound/incision: Location: sternal Site condition: dressing clean dry, dressing intact HEENT: anicteric, mucosal membranes moist, pupils reactive to light Neck: full range of motion, non-tender Cardiovascular: irregular rhythm, normal heart sounds, regular rate rhythm Respiratory: decreased breath sounds, aerating well, symmetric expansion Abdomen: soft, non-tender Genitourinary: no bladder distention Extremities: dry, moves all Musculoskeletal: full range of motion Neuro/STONE BREAKER: alert, oriented X 3 Skin: dry, intact Psychiatry: normal affect, normal mood Current Medications Medications: Active Meds + DC'd Last 24 Hrs Ipratropium Idabel (ATROVENT) 500 MCG RTQ2H PRN PRN INH [...] Sodium Chloride (SODIUM CHLORIDE 0.9%) 1,000 ML .[id number] IV (DC) Budesonide (PULMICORT RESPULES) 0.5 MG [...] ASDIR IV (CKD) Dextrose/Water (D5%W NON-DEHP) 250 ML Pantoprazole (PROTONIX) 40 MG DAILY@0600 PO Aspirin (ASPIRIN) 81 MG DAILY PO Amiodarone HCl (CORDARONE) 200 MG TID PO (DC) Docusate Sodium (COLACE) 100 MG BID PO Metoprolol Tartrate (LOPRESSOR) 12.5 MG Q12HR PO Sennosides (Senna Lax 8.6 MG TABLET) 17.2 MG BEDTIME PO Ipratropium Idabel (ATROVENT) 500 MCG RTQ4H INH Acetaminophen (TYLENOL) [...] ASDIR IV Dextrose/Water (DEXTROSE 5% WATER) 246 ML Glucagon (GLUCAGON) 1 MG ASDIR PRN IM Insulin Human Regular (HumuLIN R) 100 UNIT ASDIR IV (CKD) Sodium Chloride (SODIUM CHLORIDE 0.9%) 99 ML Magnesium Sulfate (MAGNESIUM SULFATE 4GM/SWFI 100ML) 100 [...] CHLORIDE 0.9%) 250 ML Q24H IV (DC) Results Findings/Data: Laboratory Tests 03/06 03/06 03/06 03/06 1607 1039 [...] 2L HFNC 4L HFNC 03/05 03/05 03/05 2312 0899 2007 Blood Gas Puncture Site Art Line [...] 03/06 03/06 03/05 03/05 0547 0313 0111 231 2254 Chemistry Sodium (134 - 147 mEq/L) 148 [...] %) 2.7 L 4.2 L 3.2 L Grainger % (Auto) (4.8 - 9.0 %) 5.2 9.8 H 8.4 Eos % (Auto) (0.3 - 3.7 %) 0.0 L 0.0 L 0.0 L Baso % (Auto) (0.0 - 2.0 %) 0.1 0.0 0.0 Neut # (Auto) (2.0 - 7.6 x10 3/uL) 7.00 3.22 4.05 Lymph # (Auto) (1.0 - 3.8 x10 3/uL) 0.21 L 0.16 L 0.15 L Grainger # (Auto) (0.1 - 0.8 x10 3/uL) [...] 53.7 Ur Random Sodium (MEQ/L) 14 Radiology data: Recent Impressions: RADIOLOGY - XR CHEST 1 V 03/06 0639 Report Impression - Status: SIGNED Entered: 03/06/2023 0805 IMPRESSION: 1. Grossly stable exam. 2. Stable small left pneumothorax involving less than 10% volume. Stable left chest tube. Impression By: [email or web address] - Bon Spangler M.D. Results: labs reviewed, vital signs stable, rythm personally rev'd, x-ray personally reviewed, current med profile rev'd Diagnosis, Assessment Plan Hospital course to date: This is a pleasant 72 year old male with past medical history of hypertension, dyslipidemia, DM-2 (on insulin), former smoker (quit 2018), BPH, prostate CA s/p radiation, COPD (uses inhaler at home, no home oxygen), and PE (November 2022 on eliquis) who presented to [facility] with chest pain, dyspnea on exertion, and NSTEMI. Coronary angiogram was done and revealed severe multivessel coronary artery disease. Patient was then transferred to [facility] for CV surgery evaluation and need for CABG. 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 The surgery, risks involved, STS score, benefits, complications and alternatives were explained to the patient and his brother. He acknowledged understanding and is willing to proceed. We will tentatively schedule him for surgery tomorrow morning. Further recommendations to follow. 03/04/23 CABG x 4 (MCCORMICK-LAD,SVG-Leana, SVG-OM, SVG-PDA) ALAA EVH (LGSV) Posterior pericardiotomy 03/05/23 POD 1 Patient alert, awake, and oriented Labs and CXR reviewed On bipap 12/ 40%, wean off as tolerated Trend abgs Wean off levo as tolerated Keep both chest tubes Monitor strict I Os and renal function PT/OT, ambulate, OOB in chair DVT ppx with SCDs Monitor patient closely in CVICU 03/06/23 POD 2 Patient in stable condition CXR and labs reviewed HGB 6.6, transfuse 2 units PRBC Discontinue dopamine drip Echocardiogram Discontinue both chest tubes CR increasing, renal following, UOP 25 cc/hr OOB in chair Monitor closely in CVICU Consultants: anesthesiology, cardiology, cardiovascular surgery, critical/ director of search engine marketing, hospitalist at 1731 RPT #:[id number] END OF REPORT [facility] 2023-03-06 17:47:00 [id number] [place] [address] PATIENT NAME: TEVIN NYE ADMIT DATE: 03/03/23 ACCOUNT NO: [id number] ROOM NO: [facility] AGE: 72 REPORT TYPE: eECHOCARDIOGRAM REPORT SEX: M ADMITTING PHYSICIAN:Luci Beyer MD ATTENDING PHYSICIAN:Luci Beyer MD *[place] [address] Transthoracic Echocardiogram Patient: Tevin Nye Study Date: 03/06/2023 BP: 162 / 58 Location: [facility] URN: [id number] : 1950 Age: 72 Height: 67 in / 170.2 cm Gender: M Weight: 197.6 lb / 89.8 kg BMI/BSA: 31 kg/m 2 / 2.01 m 2 *Ordering Physician: * Luci Beyer MD *Interpreting Physician: * Anuj Sylvester MD *[employer] Applier: * Tori Gunn Indications: Evaluation post CABG. Study data: Transthoracic echocardiogram. Procedure: Transthoracic echocardiography was performed. Image quality was adequate. Intravenous contrast (Optison) was administered. Complete 2D, complete spectral Doppler, and color Doppler. Location: CVICU. Patient status: Inpatient. Patient room number: 2201. Study status: Routine. Rhythm: Normal sinus rhythm. Findings Left ventricle: The cavity size is normal. Wall thickness is normal. Systolic function is normal. The estimated ejection fraction is 60-64%. The tissue Doppler parameters are abnormal. Left ventricular diastolic function parameters are indeterminate. Right ventricle: Estimated TAPSE is 2.2 cm. The cavity size is normal. PATIENT NAME: TEVIN NYE Systolic function is normal. Left atrium: The atrium is normal in size. Right atrium: The atrium is normal in size. Aorta: Aortic root: The aortic root is normal in size. Aortic valve: The valve is structurally normal. The valve is trileaflet. There is no evidence of stenosis. There is no regurgitation. Mitral valve: The valve is structurally normal. There is no evidence of stenosis. There is trivial regurgitation. Tricuspid valve: The valve is structurally normal. There is trivial regurgitation. Pulmonic valve: Not visualized. There is no regurgitation. Pericardium: A trivial pericardial effusion is identified anterior to the heart. Pulmonary arteries: Main pulmonary artery: The artery is of normal size. Systemic veins: Inferior vena cava: The vessel is dilated. The respirophasic diameter changes are in the normal range (= 50%). Inferior vena cava diameter is 2.1 cm. Measurements Left ventricle Value 03/04/2023 Ref [...] A2C PW, ED 0.8 cm 1.0 0.6 - PATIENT NAME: TEVIN NYE 1.0 IVS/PW, ED 0.57 1.01 ---- EF 60 % 63 52 - 72 E', lat 5.7 cm/sec 7.9 >=10 yoanna, TDI .0 E/e', lat 21 10 ---- yoanna, TDI E', med 6.7 cm/sec 6.9 >=7. yoanna, TDI 0 E/e', med 18 11 ---- yoanna, TDI E', avg, 6.2 cm/sec 7.4 ---- [...] ml/m 2 15 12 - ES, 1-p 37 PATIENT NAME: TEVIN NYE A4C Vol, ES, 50 [...] Peak grad, 5.9 mm Hg 6.1 ---- D PATIENT NAME: TEVIN YNE Peak E/A 1.84 0.64 ---- ratio MVA, PHT 2.7 cm 2 2.7 ---- MR peak v 1.94 m/sec ---- Pulmonic valve Value 03/04/2023 Ref MO v, ED 0.81 m/sec 0.8 ---- Tricuspid valve Value 03/04/2023 Ref TR peak v 1.5 m/sec 3.07 <=2. 8 Peak RV-RA 9 mm Hg 38 ---- grad, S Conclusions Summary: 1. Left ventricle: The cavity size is normal. Wall thickness is normal. Systolic function is normal. The estimated ejection fraction is 60-64%. Left ventricular diastolic function parameters are indeterminate. 2. Mitral valve: There is trivial regurgitation. 3. Tricuspid valve: There is trivial regurgitation. 4. Pericardium, extracardiac: A trivial pericardial effusion is identified anterior to the heart. 5. Inferior vena cava: The vessel is dilated. The respirophasic diameter changes are in the normal range (= 50%). Inferior vena cava diameter is 2.1 cm. Prepared and electronically signed by Anuj Sylvester MD 03/06/2023 17:47 at 1747 PATIENT NAME: TEVIN NYE [facility] 2023-03-06 13:27:00 [facility] Critical Care Progress Note REPORT#:[id number] REPORT STATUS: Signed DATE:03/06/23 TIME: 1327 PATIENT: TEVIN NYE UNIT #: [id number] ROOM/BED: [place] [address] : 51 AGE: 72 SEX: M ATTEND: Luci Beyer MD ADM AUTHOR: Dina Mccain MD * ALL edits or amendments must be made on the electronic/computer document * Subjective Chief complaint: Dyspnea Wheezing Chest pain/Unstable angina HPI: Tevin Nye is a 72-year-old gentleman [...] isolation of left atrial appendage. He came out of the OR with norepinephrine at 4 mcg [...] dose was at 3:15 PM. Patient was given hydrocortisone 100 mg IV at 2:45 PM for chronic steroid dependence. He is currently on assist-control at 18 tidal volume 480 PEEP of 5 and 50% FiO2 and is moving tidal volumes at 470+. Vital signs are stable with heart rate 82 sinus rhythm, blood pressure 95/41 mmHg, pulse ox 100% while on 50% FiO2 and respiratory rate is 14. Chest tube output is minimal at 3 mm each. Patient was ordered albumin 25% to 50 mL. Pupils are bilaterally symmetrical and reactive to light measuring 3 mm on each side. Lab work upon arrival in the CVICU room # 2201 revealed a potassium of 3.3, glucose 230, creatinine 1.46 mg/dL, hemoglobin of 6.9 g/dL and hematocrit of 20%. Tevin Gonzalez is a 72 y.o. male with PMH of hypertension, dyslipidemia, diabetes, former smoker (quit 2008), BPH, prostate CA s/p radiation, COPD (uses inhaler at home, no home oxygen), and PE (November 2022 on eliquis) who presented to [facility] with chest pain, dyspnea on exertion, and NSTEMI. Coronary angiogram was done and revealed severe multivessel coronary artery disease. Patient was then transferred to [facility] for CV surgery evaluation and need for [...] isolation of left atrial appendage on 03/04/2023. Comments: Interval history- Patient is on dopamine 3 mics. Creatinine continues to worsen. Making urine output about 30 cc/h. Objective General VS/I O Last Documented: Result Date Time B/P 135/65 03/06 [...] scale Measurement Method PATIENT WEIGHT: Weight (lb): 198 Weight (oz): 3.13 Weight (kg): 89.811 Medications: Active Meds + DC'd Last 24 Hrs Ipratropium Idabel (ATROVENT) 500 MCG RTQ2H PRN PRN INH [...] Sodium Chloride (SODIUM CHLORIDE 0.9%) 1,000 ML .[id number] IV (DC) Acetaminophen (OFIRMEV 10MG/ML) 100 ML [...] ASDIR IV (CKD) Dextrose/Water (D5%W NON-DEHP) 250 ML Pantoprazole (PROTONIX) 40 MG DAILY@0600 PO Aspirin (ASPIRIN) 81 MG DAILY PO Amiodarone HCl (CORDARONE) 200 MG TID PO (DC) Docusate Sodium (COLACE) 100 MG BID PO Metoprolol Tartrate (LOPRESSOR) 12.5 MG Q12HR PO Sennosides (Senna Lax 8.6 MG TABLET) 17.2 MG BEDTIME PO Ipratropium Idabel (ATROVENT) 500 MCG RTQ4H INH Acetaminophen (TYLENOL) [...] ASDIR IV Dextrose/Water (DEXTROSE 5% WATER) 246 ML Glucagon (GLUCAGON) 1 MG ASDIR PRN IM Insulin Human Regular (HumuLIN R) 100 UNIT ASDIR IV (CKD) Sodium Chloride (SODIUM CHLORIDE 0.9%) 99 ML Magnesium Sulfate (MAGNESIUM SULFATE 4GM/SWFI 100ML) 100 [...] 0.9%) 250 ML Q24H IV (DC) Physical Exam Head/eyes: EOMI, PERRL Cardiovascular: normal capillary refill, normal heart sounds, regular rate and rhythm, normal S1/S2 Respiratory: aerating well, clear to auscultation, symmetric expansion Abdomen: soft, non-tender Genitourinary: urinary catheter, no bladder distention Extremities: no clubbing, no cyanosis, no edema Skin: abnormal temperature, dry, no rash Psychiatry: unable to evaluate Results Findings/data: Laboratory Tests 03/06 03/06 03/06 03/05 1039 0547 0111 2312 Blood Gas Puncture Site Art [...] 2L HFNC 4L HFNC 4L HFNC 03/05 154 Blood Gas Puncture Site Art Line [...] 03/06 03/06 03/06 03/06 1205 1039 0836 0527 0313 Chemistry Sodium (134 - 147 mEq/L) [...] 03/05 03/05 03/05 03/05 0111 2312 2254 2205 2007 Chemistry Sodium (134 - 147 mEq/L) [...] mg/dL) 2.69 H 03/05 1750 1610 1556 1543 Chemistry Sodium (134 - 147 mEq/L) 148 [...] - 32.0 %) 4.2 L 3.2 L Grainger % (Auto) (4.8 - 9.0 %) 9.8 H 8.4 Eos % (Auto) (0.3 - 3.7 %) 0.0 L 0.0 L Baso % (Auto) (0.0 - 2.0 %) 0.0 0.0 Neut # (Auto) (2.0 - 7.6 x10 3/uL) 3.22 4.05 Lymph # (Auto) (1.0 - 3.8 x10 3/uL) 0.16 L 0.15 L Grainger # (Auto) (0.1 - 0.8 x10 3/uL) [...] Random Sodium (MEQ/L) 14 Laboratory Tests 03/06/23 0313: [Embedded Image Not Available] 03/06/23 0118: [Embedded Image Not Available] 03/05/23 2334: [Embedded Image Not Available] 03/05/23 2254: [Embedded Image Not Available] 03/05/23 1610: [Embedded Image Not Available] Microbiology: 03/03 1952 NASAL: MSSA Surveillance Screen - COMP 03/03 1952 NASAL: MRSA DNA Surveillance Screen - COMP Radiology data Recent Impressions: RADIOLOGY - XR CHEST 1 V 03/06 0639 Report Impression - Status: SIGNED Entered: 03/06/2023 0805 IMPRESSION: 1. Grossly stable exam. 2. Stable small left pneumothorax involving less than 10% volume. Stable left chest tube. Impression By: [email or web address] - Bon Spangler M.D. Diagnosis, Assessment Plan Free text A P: Problem List: Chest pain Wheezing Dyspnea Multivessel coronary artery disease Non-ST elevation UT Status post CABG x5 and ILAA Elective ventilator dependence Acute pulmonary insufficiency following major cardiothoracic surgery Acute blood loss anemia Metabolic acidosis Lactic acidosis Hypokalemia Hyperglycemia Chronic steroid dependence Severe left carotid stenosis History of severe COPD Assessment and Plan: Tevin [...] isolation of left atrial appendage. He came out of the OR with norepinephrine at 4 mcg [...] dose was at 3:15 PM. Patient was given hydrocortisone 100 mg IV at 2:45 PM for chronic steroid dependence. He is currently on assist-control at 18 tidal volume 480 PEEP of 5 and 50% FiO2 and is moving tidal volumes at 470+. Vital signs are stable with heart rate 82 sinus rhythm, blood pressure 95/41 mmHg, pulse ox 100% while on 50% FiO2 and respiratory rate is 14. Chest tube output is minimal at 3 mm each. Patient was ordered albumin 25% to 50 mL. Pupils are bilaterally symmetrical and reactive to light measuring 3 mm on each side. Lab work upon arrival in the CVICU room # 2201 revealed a potassium of 3.3, glucose 230, creatinine 1.46 mg/dL, hemoglobin of 6.9 g/dL and hematocrit of 20%. Tevin Gonzalez is a 72 y.o. male with PMH of hypertension, dyslipidemia, diabetes, former smoker (quit 2008), BPH, prostate CA s/p radiation, COPD (uses inhaler at home, no home oxygen), and PE (November 2022 on eliquis) who presented to [facility] with chest pain, dyspnea on exertion, and NSTEMI. Coronary angiogram was done and revealed severe multivessel coronary artery disease. Patient was then transferred to [facility] for CV surgery evaluation and need for [...] postop day 0 after CABG x5 and ILAA Has severe left carotid stenosis Optimize systolic blood pressure to greater than 130 mmHg Patient was on chronic steroid therapy with Solu-Medrol Adrenal cortical support with hydrocortisone 25 mg IV every 8 hours Has acute blood loss anemia with a hemoglobin of 6.9 g/dL Transfuse 2 units of packed red cells Patient received Hydrocortisone 100 mg IV at 2:45 PM Start on Hydrocortisone 25 mg every 8 hours Also received parasternal block Currently on assist-control at 18 tidal volume 480 PEEP of 5 and 50% FiO2 Latest blood gas shows a pH of 7.28, pCO2 of 43 mmHg, pO2 of 175 mmHg and bicarbonate of 20 mmol with base excess at -6.5 Patient has been ordered 1 amp of sodium bicarbonate Recheck ABGs in 1 hour Chest tube output is minimal at 3 mL in both left pleural and mediastinal chest tube Blood pressure is low upon arrival at 95/41 mm of Hg Optimize blood pressure with Norepinephrine, titrate to a map of 70 or greater Avoid sedation Monitor chest tube output Pupils are bilaterally symmetrical and reactive to light measuring 3 mm on each side Replete potassium, check magnesium and ionized calcium Follow BMP Glycemic control with insulin drip, latest blood glucose is 230 mg/dL SCDs for DVT prophylaxis Noézach Madrid MD [facility] 03/04/2023 6.32 PM 03/06/2023 Neurologically patient is at baseline. More awake today. Patient has been weaned off the BiPAP. He is on nasal cannula 4 L. Hypercapnia improving Continue DuoNebs. Will wean down the steroids to 40 daily. Chest x-ray and ABG reviewed. Patient went into A-fib with RVR. I received amiodarone bolus. Is in sinus rhythm. Will wean off the dopamine. If needed will use Levophed for blood pressure support to keep a MAP of more than 75. Continue to monitor the urine output. Patient currently making about 40 cc/h. Creatinine however worsening. Renal following. No IV fluids. Patient started to take oral intake. Patient's hemoglobin dropped to 6.6. Received 2 units of PRBC. No active bleeding on the chest tube. After walking we will reassess intake of the chest tube. Insulin drip for sugar control. Continue aspirin and Plavix. Platelets are down. Continue to monitor. Hypernatremia encourage oral intake. LFTs within normal. SCDs for DVT prophylaxis. PPI. Total critical care time 50 minutes excluding procedures Consultants: anesthesiology, cardiology, cardiovascular surgery, critical/ director of search engine marketing, hospitalist at 1336 RPT #:[id number] END OF REPORT [facility] 2023-03-06 12:11:00 [facility] ([facility]) Nephrology Progress Note REPORT#:[id number] REPORT STATUS: Signed DATE:03/06/23 TIME: 1211 PATIENT: TEVIN NYE UNIT #: [id number] ROOM/BED: [place] [address] : 51 AGE: 72 SEX: M ATTEND: Luci Beyer MD ADM AUTHOR: Glendy Paz MD * ALL edits or amendments must be made on the electronic/computer document * Subjective Comments: Getting 1 unit of PRBC, increasing urine output. Objective General VS/I O: Vital Signs: Date Time Temp Pulse Resp [...] 106/50 67 94 03/06 0830 132/62 89 06/29 0830 98.6 82 21 149/58 85 96 06/29 0815 118/56 81 06/29 0815 98.8 130 22 117/55 74 94 06/29 0801 122/66 84 / 0801 98.6 140 0 121/62 80 99 06/29 0752 96 Nasal 3 cannula 06/ 0730 119/57 82 06/29 0730 98.6 83 14 137/57 81 94 06/29 0700 123/62 86 /29 0700 98.6 131 27 144/65 88 94 /29 0619 98.6 80 24 162/58 88 94 06/29 0600 98.4 80 20 152/52 81 95 /29 0530 98.4 76 21 137/49 76 95 06/ 0500 98.6 75 9 140/54 81 98 06/ 0430 98.8 76 14 137/52 77 97 06/29 0400 98.8 85 30 133/49 80 91 06/ 0330 98.6 79 14 130/51 74 95 /29 0308 76 95 / 0300 98.6 77 12 133/50 74 93 / 0230 98.6 74 18 128/48 71 95 / 0200 98.8 72 13 121/45 68 97 / 0130 99.0 74 17 123/46 68 95 / 0030 99.3 73 12 123/46 68 100 / 0000 99.3 74 18 125/50 72 100 06/ 2330 99.5 75 16 126/47 70 100 06 2300 99.5 76 13 107/46 65 97 / 2300 74 100 03/05 2230 99.3 152 23 103/51 69 98 / 2200 99.3 92 13 146/58 84 100 06/ 2130 99.3 101 30 119/58 79 96 / 2100 99.5 75 13 110/45 63 100 03/05 2030 99.3 80 9 114/47 66 100 061999 BiPAP 60 03/05 2000 99.1 87 13 128/48 72 100 06/ 1930 99.3 84 10 128/48 72 100 06/28 1915 84 100 60 06/ 1915 100 BiPAP 60 03/05 1900 99.3 83 20 128/48 73 100 06/ 1800 99.1 95 18 147/56 84 100 [...] scale Measurement Method PATIENT WEIGHT: Weight (lb): 198 Weight (oz): 3.13 Weight (kg): 89.811 Medications Active Meds + DC'd Last 24 Hrs Ipratropium Idabel (ATROVENT) 500 MCG RTQ2H PRN PRN INH [...] Sodium Chloride (SODIUM CHLORIDE 0.9%) 1,000 ML .[id number] IV (DC) Acetaminophen (OFIRMEV 10MG/ML) 100 ML [...] ASDIR IV (CKD) Dextrose/Water (D5%W NON-DEHP) 250 ML Pantoprazole (PROTONIX) 40 MG DAILY@0600 PO Aspirin (ASPIRIN) 81 MG DAILY PO Amiodarone HCl (CORDARONE) 200 MG TID PO (DC) Docusate Sodium (COLACE) 100 MG BID PO Metoprolol Tartrate (LOPRESSOR) 12.5 MG Q12HR PO Sennosides (Senna Lax 8.6 MG TABLET) 17.2 MG BEDTIME PO Ipratropium Idabel (ATROVENT) 500 MCG RTQ4H INH Acetaminophen (TYLENOL) [...] ASDIR IV Dextrose/Water (DEXTROSE 5% WATER) 246 ML Glucagon (GLUCAGON) 1 MG ASDIR PRN IM Insulin Human Regular (HumuLIN R) 100 UNIT ASDIR IV (CKD) Sodium Chloride (SODIUM CHLORIDE 0.9%) 99 ML Magnesium Sulfate (MAGNESIUM SULFATE 4GM/SWFI 100ML) 100 [...] CHLORIDE 0.9%) 250 ML Q24H IV Physical Exam General appearance: alert, awake Head/eyes: atraumatic, normocephalic, PERRLA Neck: no JVD, no lymphadenopathy Cardiovascular: normal heart sounds, regular rate and rhythm, no rub Respiratory: decreased breath sounds, aerating well, no distress Abdomen: non-tender, normal bowel sounds, soft, no rebound Genitourinary: urinary catheter, urine Extremities: no edema, no gangrene Neuro/STONE BREAKER: alert, normal speech Results Findings/Data: Laboratory Tests 03/06 03/06 03/06 03/05 1039 0547 0111 2312 Blood Gas Puncture Site Art [...] 2L HFNC 4L HFNC 4L HFNC 03/05 1543 Blood Gas Puncture Site Art Line [...] 3.40 03/05 03/05 03/05 03/05 03/05 2312 7958 2940 2007 2006 Chemistry Sodium (134 - 147 [...] 03/05 03/05 03/05 1750 1610 1556 1543 1436 Chemistry Sodium (134 - 147 mEq/L) 148 [...] - 32.0 %) 4.2 L 3.2 L Grainger % (Auto) (4.8 - 9.0 %) 9.8 H 8.4 Eos % (Auto) (0.3 - 3.7 %) 0.0 L 0.0 L Baso % (Auto) (0.0 - 2.0 %) 0.0 0.0 Neut # (Auto) (2.0 - 7.6 x10 3/uL) 3.22 4.05 Lymph # (Auto) (1.0 - 3.8 x10 3/uL) 0.16 L 0.15 L Grainger # (Auto) (0.1 - 0.8 x10 3/uL) [...] 53.7 Ur Random Sodium (MEQ/L) 14 Radiology data: Recent Impressions: RADIOLOGY - XR CHEST 1 V 03/06 0639 Report Impression - Status: SIGNED Entered: 03/06/2023 0805 IMPRESSION: 1. Grossly stable exam. 2. Stable small left pneumothorax involving less than 10% volume. Stable left chest tube. Impression By: [email or web address] - Bon Spangler M.D. Diagnosis, Assessment Plan Free Text A P: 1. JERAMY likely ATN secondary to IV contrast. Urine output improving. Sp NS at 75 cc/h for 1 L. Monitor respiratory status closely. Avoid nephrotoxic medications.cr worse at 3.1 today. 2. Acute hypercapnic respiratory failure with COPD on BiPAP. Pulmonary following 3. Coronary disease status post CABG postop care per CT surgery 4. Left carotid artery stenosis 5. Anemia we will get 2 units of PRBC today Discussed with ICC 1. Left ventricle: The cavity size is normal. Wall thickness is normal. Systolic function is mildly reduced. The estimated ejection fraction is 40-44%. Doppler parameters are consistent with abnormal left ventricular relaxation (grade 1 diastolic dysfunction). 2. Regional wall motion abnormality: Severe hypokinesis of the apical anterior, apical septal, apical lateral, and apical myocardium; hypokinesis of the basal-mid anteroseptal myocardium. 3. Right ventricle: Systolic pressure is moderately increased. 4. Mitral valve: There is mild regurgitation. 5. Tricuspid valve: Estimated right ventricular systolic pressure is 46 mmHg. There is moderate regurgitation. 6. Pericardium, extracardiac: A trivial pericardial effusion is identified. 7. Inferior vena cava: The vessel is dilated. The respirophasic diameter changes are in the normal range (= 50%). Inferior vena cava diameter is 2.1 cm. on 03/04/23 at 1717 at 1501 RPT #:[id number] END OF REPORT [facility] 2023-03-06 06:55:00 [facility] Cardiology Progress Note REPORT#:[id number] REPORT STATUS: Signed DATE:03/06/23 TIME: 06 PATIENT: TEVIN NYE UNIT #: [id number] ROOM/BED: [place] [address] : 51 AGE: 72 SEX: M ATTEND: Luci Beyer MD ADM AUTHOR: Anuj Sylvester MD * ALL edits or amendments must be made on the electronic/computer document * Subjective Chief complaint: Weak Objective General VS/I O: 24 hour I O ending at 0700: [...] 1530 98.8 100 21 155/62 92 97 / 1500 98.8 91 10 154/64 93 100 [...] 0730 98.2 75 13 128/56 77 97 / 0708 98.2 82 17 119/57 77 97 PATIENT WEIGHT: Weight (lb): 198 Weight (oz): 3.13 Weight (kg): 89.900 Medications: Active Meds + DC'd Last 24 Hrs Ipratropium Idabel (ATROVENT) 500 MCG RTQ2H PRN PRN INH [...] Sodium Chloride (SODIUM CHLORIDE 0.9%) 1,000 ML .[id number] IV Acetaminophen (OFIRMEV 10MG/ML) 100 ML ONCE [...] ASDIR IV (CKD) Dextrose/Water (D5%W NON-DEHP) 250 ML Pantoprazole (PROTONIX) 40 MG DAILY@0600 PO Sodium [...] MG TABLET) 17.2 MG BEDTIME PO Ipratropium Idabel (ATROVENT) 500 MCG RTQ4H INH Acetaminophen (TYLENOL) [...] ASDIR IV Dextrose/Water (DEXTROSE 5% WATER) 246 ML Glucagon (GLUCAGON) 1 MG ASDIR PRN IM Insulin Human Regular (HumuLIN R) 100 UNIT ASDIR IV (CKD) Sodium Chloride (SODIUM CHLORIDE 0.9%) 99 ML Magnesium Sulfate (MAGNESIUM SULFATE 4GM/SWFI 100ML) 100 [...] CHLORIDE 0.9%) 250 ML Q24H IV Physical Exam General appearance: alert, awake Neck: full range of motion, non-tender, normal thyroid, supple/no meningismus, no bruit/NL carotids, no JVD, no lymphadenopathy, no masses or swelling Cardiovascular: CV assessment: regular rate and rhythm Respiratory: decreased breath sounds, clear to auscultation Abdomen: non-tender, normal bowel sounds, no distention, no guarding, no mass/ organomegaly, no pulsatile mass, no rebound Upper extremity: UE assessment: normal capillary refill, no edema Lower extremity: LE assessment: normal capillary refill, no edema Results Findings/Data: Laboratory Tests 03/06 03/06 03/05 03/05 0547 0111 [...] 03/06 03/05 03/05 0547 0313 0111 2312 2254 Chemistry Sodium (134 - 147 mEq/L) 148 [...] Albumin (3.4 - 5.0 g/dL) 3.40 03/05 1750 1610 Chemistry Sodium (134 - 147 mEq/L) 148 [...] %) 4.2 L 3.2 L 3.6 L Grainger % (Auto) (4.8 - 9.0 %) 9.8 H 8.4 10.3 H Eos % (Auto) (0.3 - 3.7 %) 0.0 L 0.0 L 0.0 L Baso % (Auto) (0.0 - 2.0 %) 0.0 0.0 0.0 Neut # (Auto) (2.0 - 7.6 x10 3/uL) 3.22 4.05 6.16 Lymph # (Auto) (1.0 - 3.8 x10 3/uL) 0.16 L 0.15 L 0.26 L Grainger # (Auto) (0.1 - 0.8 x10 3/uL) [...] H 2.69 H 2.58 H 2.35 Radiology data: Recent Impressions: RADIOLOGY - XR ABDOMEN 1V (KUB) 03/05 0838 Report Impression - Status: SIGNED Entered: 03/05/2023 0852 IMPRESSION: No pathologic bowel distention. Impression By: [email or web address] - Davi Walton M.D. 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 Free Text DxA P Notes Free Text DxA P Notes: 1- Severe COPD with exacerbation: As per Pulm 2- Recent pulmonary embolism on Eliquis 3- NSTEMI/Multivessel coronary artery disease: S/P CBBG, extubated and doing fair 5- Hypertension 6- History of tobacco use 7. Wide complex tachy: Asymptomatic and suggests AFIB/SVT with aberrancy. Respomded to bolus of IV Amio. will increase po amio at 0658 RPT #:[id number] END OF REPORT [facility] 2023-03-06 01:03:00 [id number] [address] PATIENT NAME: TEVIN NYE ADMIT DATE: 03/03/23 ACCOUNT NO: [id number] ROOM NO: G.2201 AGE: 72 REPORT TYPE: eELECTROCARDIOGRAM REPORT SEX: M ADMITTING PHYSICIAN:Luci Beyer MD ATTENDING PHYSICIAN:Luci Beyer MD Order: [id number] Test Reason : VTACH Test Date/Time Stamp: FriMar 06 2023 01:03:34 Blood Pressure : / mmHG Vent. Rate : 071 BPM Atrial Rate : 071 BPM P-R Int : 152 ms QRS Dur : 086 ms QT Int : 418 ms P-R-T Axes : 056 -43 045 degrees QTc Int : 454 ms Normal sinus rhythm Left axis deviation Low voltage QRS Abnormal ECG When compared with ECG of 05-MAR-2023 22:26, Significant changes have occurred Confirmed by MD HIGINIO, ANUJ ([id number]) on 03/06/2023 6:03:26 PM Referred By: Self Referred Confirmed by:ANUJ SYLVESTER MD at 1803 PATIENT NAME: TEVIN NYE [facility] 2023-03-05 22:26:00 [id number] [address] PATIENT NAME: TEVIN NYE ADMIT DATE: 03/03/23 ACCOUNT NO: [id number] ROOM NO: G.2201 AGE: 72 REPORT TYPE: eELECTROCARDIOGRAM REPORT SEX: M ADMITTING PHYSICIAN:Luci Beyer MD ATTENDING PHYSICIAN:Luci Beyer MD Order: [id number] Test Reason : VTACH Test Date/Time Stamp: FriMar 05 2023 22:26:16 Blood Pressure : / mmHG Vent. Rate : 120 BPM Atrial Rate : 120 BPM P-R Int : 132 ms QRS Dur : 092 ms QT Int : 338 ms P-R-T Axes : 066 -53 057 degrees QTc Int : 477 ms Sinus tachycardia Left axis deviation Low voltage QRS Septal infarct (cited on or before 04-MAR-2023) Possible Lateral infarct , age undetermined Abnormal ECG When compared with ECG of 05-MAR-2023 20:08, No significant change was found Confirmed by MD SYLVESTER GERARD ([id number]) on 03/06/2023 6:03:07 PM Referred By: Samia Beyer Confirmed by:ANUJ SYLVESTER MD at 1803 PATIENT NAME: TEVIN NYE [facility] 2023-03-05 20:08:00 [id number] [place] [address] PATIENT NAME: TEVIN NYE ADMIT DATE: 03/03/23 ACCOUNT NO: [id number] ROOM NO: [facility] AGE: 72 REPORT TYPE: eELECTROCARDIOGRAM REPORT SEX: M ADMITTING PHYSICIAN:Luci Beyer MD ATTENDING PHYSICIAN:Luci Beyer MD Order: [id number] Test Reason : VTACH Test Date/Time Stamp: FriMar 05 2023 20:08:38 Blood Pressure : / mmHG Vent. Rate : 096 BPM Atrial Rate : 096 BPM P-R Int : 122 ms QRS Dur : 086 ms QT Int : 356 ms P-R-T Axes : 056 -56 069 degrees QTc Int : 449 ms Normal sinus rhythm Left axis deviation Pulmonary disease pattern Septal infarct (cited on or before 04-MAR-2023) Abnormal ECG When compared with ECG of 05-MAR-2023 02:33, No changes Confirmed by MD SYLVESTER GERARD ([id number]) on 03/06/2023 6:02:59 PM Referred By: Samia Beyer Confirmed by:ANUJ SYLVESTER MD at 1802 PATIENT NAME: TEVIN NYE [facility] 2023-03-05 17:19:00 [facility] ([facility] Cardiothoracic Surgery Prog REPORT#:[id number] REPORT STATUS: Signed DATE:03/05/23 TIME: 1719 PATIENT: TEVIN NYE UNIT #: [id number] ROOM/BED: 3343-1 : 51 AGE: 73 SEX: M ATTEND: Luci Beyer MD ADM AUTHOR: Luci Beyer MD * ALL edits or amendments must be made on the electronic/computer document * General Post-op: day 1 Status post: 03/04/23 CABG x 4 (MCCORMICK-LAD,SVG-Leana, SVG-OM, SVG-PDA) ALAA EVH (LGSV) Posterior pericardiotomy Subjective Chief complaint: chest pain Follow up CABG Review of Systems Constitutional: Denies: chills, fatigue, generalized weakness. Skin: Denies: abrasion, bruising, laceration. Allergy/Immun: Denies: allergic reaction, anaphylaxis, rhinorrhea. Eyes: Denies: redness, visual loss/blurred, eye pain. ENT: Denies: ear ringing, throat swelling, toothache. Respiratory: Denies: [place] (dyspnea on exertion), pneumonia, SOB. Cardiovascular: Denies: chest pain, edema, orthopnea. GI: Denies: abdominal pain, anorexia, melena, nausea. : Denies: dysuria, flank pain. Musculoskeletal: Denies: arthritis, extremity pain, lumbar pain. Heme: Denies: adenopathy, bleeding, petechiae. Endocrine: Denies: cold intolerance, polydipsia, weight gain. Neuro: Denies: confusion, dizziness, seizure, syncope. All systems rev neg: except as marked Objective General VS/I O Last Documented: Result Date Time Pulse Ox [...] scale Measurement Method PATIENT WEIGHT: Weight (lb): 194 Weight (oz): 10.69 Weight (kg): 88.300 Dietitian Nutrition assessment The data set between the solid lines has been imported from the dietitian's assessment. BMI Calculated: 30.5 Nutrition related diagnosis: Nutrition diagnosis details: Nutrition problem: Increased nutrient needs Nutrition etiology: Acute illness Nutrition signs and symptoms: ESTIMATED NEEDS S/P SURGERY Nutrition prescription: 1. RECOMMEND ADVANCE TO A CCD5 CARDIAC DIET APPROPRIATE. 2. PROVIDE GLUCERNA TID WITH MEALS. 3. HEALTHY HEART DIET EDUCATION PRIOR TO DISCHARGE. 4. MONITOR PO, WT, LABS, BM. Dietitian name: Purvi Garay, DIET Assessment completed: 03/05/23 Physical Exam General appearance: alert, awake, oriented Wound/incision: Location: sternal Site condition: dressing clean dry, dressing intact HEENT: anicteric, mucosal membranes moist, pupils reactive to light Neck: full range of motion, non-tender Cardiovascular: normal heart sounds, regular rate rhythm Respiratory: decreased breath sounds, aerating well, symmetric expansion Abdomen: soft, non-tender Genitourinary: no bladder distention Extremities: dry, moves all Musculoskeletal: full range of motion Neuro/STONE BREAKER: alert, oriented X 3 Skin: dry, intact Psychiatry: normal affect, normal mood Current Medications Medications: Active Meds + DC'd Last 24 Hrs Ipratropium Idabel (ATROVENT) 500 MCG RTQ2H PRN PRN INH [...] ASDIR IV (CKD) Dextrose/Water (D5%W NON-DEHP) 250 ML Pantoprazole (PROTONIX) 40 MG DAILY@0600 PO Sodium Chloride (0.45% Sodium Chloride) 500 ML BOLUS ONCE ONE IV (DC) Vancomycin HCl (VANCOMYCIN HCL) 1,000 MG ONCE ONE IV (DC) Sodium Chloride (SODIUM CHLORIDE 0.9%) 250 ML Oxycodone HCl (ROXICODONE) 5 MG Q4H PRN PRN PO (DC) Aspirin (ASPIRIN) 81 MG DAILY PO Calcium Chloride (CALCIUM CHLORIDE) 2 GM ONCE ONE IV (DC) Sodium Chloride (SODIUM CHLORIDE 0.9%) 100 ML Albumin Human (ALBUMINAR 5% 12.5GM/250ML) 250 ML [...] (BRIDION) 0 .STK-MED ONE IV (DC) Ipratropium Idabel (ATROVENT) 500 MCG RTQ4H INH Sugammadex Sodium [...] ASDIR IV Dextrose/Water (DEXTROSE 5% WATER) 246 ML Glucagon (GLUCAGON) 1 MG ASDIR PRN IM Insulin Human Regular (HumuLIN R) 100 UNIT ASDIR IV (CKD) Sodium Chloride (SODIUM CHLORIDE 0.9%) 99 ML Magnesium Sulfate (MAGNESIUM SULFATE 4GM/SWFI 100ML) 100 [...] (CAN) Sodium Chloride (SODIUM CHLORIDE 0.9%) 250 ML Clindamycin Phosphate (CLEOCIN 900 MG/NS 50 ML) 50 ML PREOP ONCALL IV ( DC) Vancomycin HCl (Vancomycin 1,250 mg Inj (B2)) 1,250 MG PREOP ONCALL IV ( DC) Sodium Chloride (SODIUM CHLORIDE 0.9%) 250 ML Verapamil HCl (ISOPTIN) 16.6 MG .Q24H ONE IV (DC) Heparin Sodium (Porcine) (HEPARIN SODIUM) 1,660 UNIT Sodium Bicarbonate (SODIUM BICARBONATE) 0.7 ML Nitroglycerin/Dextrose (NITROGLYCERIN 50MG/D5W 250ML) 8.3 MG Lactated Ringer's (LACTATED RINGERS) 949.5 ML Budesonide (PULMICORT RESPULES) 0.5 MG RTBID INH (DC) Formoterol Fumarate (PERFOROMIST) 20 MCG RTBID NEB (DC) Doxycycline Hyclate (VIBRAMYCIN) 100 MG Q12HR IV (DC) Sodium Chloride (SODIUM CHLORIDE 0.9% 100 ML) 100 ML Guaifenesin (MUCINEX 600MG TAB SA) 600 MG Q12HR [...] 50,000MCG/D5W 250ML) 250 ML ASDIR IV (DC) Results Findings/Data: Laboratory Tests 03/05 03/05 03/05 03/05 1543 1436 1047 0742 Blood Gas Puncture Site Art Line Art [...] 4L HFNC FiO2 (%) 35 40 03/04 Blood Gas Puncture Site Art [...] (-4.0 - 4.0 2.4 1.0 1.5 -8.2 L MMOL/L) ABG Hematocrit (37.5 - 50.7 %) 22 [...] (1.12 - 1.32 1.10 L 1.10 L 1.21 MMOL/L) Lactic Acid (0.9 - 1.7 mmol/l) 4.3 [...] 03/05 03/05 03/05 1006 0748 0743 0635 0532 Chemistry Sodium (134 - 147 mEq/L) 148 [...] 8.7 Ionized Calcium Breana (1.09 - 1.30 1.14 MMOL/L) Magnesium (1.80 - 2.40 mg/dL) 2.35 03/05 03/05 03/05 03/05 03/04 0442 0209 0201 0201 2348 Chemistry Sodium (134 - 147 mEq/L) 150 [...] Total Alk Phosphatase (20 - 125 26 IUnit/L) Total Protein (6.4 - 8.2 g/dL) 5.1 L Albumin (3.4 - 5.0 g/dL) 3.40 03/04 03/04 03/04 03/04 03/04 2259 2 2131 2055 1941 Chemistry Sodium (134 - 147 mEq/L) 151 H [...] Ionized Calcium Breana (1.09 - 1.30 0.95 L MMOL/L) Total Bilirubin (0.0 - 1.0 mg/dL) 0.70 Direct Bilirubin (0.0 - 0.30 MG/DL) 0.40 H Indirect Bilirubin (MG/DL) 0.30 AST (15 - 37 IUnit/L) 40 H ALT (30 - 65 IUnit/L) 11 L Total Alk Phosphatase (20 - 125 28 IUnit/L) Total Protein (6.4 - 8.2 g/dL) 4.8 [...] INR (0.8 - 1.2) 1.5 H PTT (Perry) (25.0 - 39.5 Seconds) 30.8 PT Patient/Control Mix (9.3 - 12.9 SECONDS) 16.4 H Activated Coag Time (74 - 137 SEC) 149 H Laboratory Tests 03/05 03/05 03/04 03/04 1052 0201 2132 1743 Hematology WBC (4.5 - 11.0 x10 3/uL) 7.2 [...] L 3.1 L 3.3 L 6.5 L Grainger % (Auto) (4.8 - 9.0 %) 10.3 [...] L 0.12 L 0.17 L 0.59 L Grainger # (Auto) (0.1 - 0.8 x10 3/uL) 0.74 0.37 0.45 0.73 Eos # (Auto) (0.0 - 0.2 x10 3/uL) 0.00 0.00 0.00 0.02 Baso # (Auto) (0.0 - 0.2 x10 3/uL) 0.00 0.00 0.01 0.01 Abs Immat Gran (auto) (0.00 - 0.03 0.03 0.02 0.07 H 0.09 H x10 3/uL) Add Manual Diff NO NO NO NO Immature Gran % (0.0 - 2.0 %) 0.4 0.5 1.3 1.0 Nucleated RBC % (0 - 0 %) 0.0 0.0 0.0 0.0 Nucleated RBCs # (Man) (0.0 - 0.1 0.00 0.00 0.00 0.00 x10 3/uL) Platelet Estimate (ADEQUATE THOUSAND) 140-175 Plt Morphology Comment NORMAL Radiology data: Recent Impressions: RADIOLOGY - XR CHEST 1 V 03/04 182 Report Impression - Status: SIGNED Entered: 03/04/20231936 IMPRESSION: 1. Lines and tubes are in satisfactory position. 2. St. Mild bibasilar atelectasis. ernal wires are seen Impression By: Jose Juan Schuler M.D. CAT SCAN - CT HEAD/BRAIN W/O CONT 03/04 1933 Report Impression - Status: SIGNED Entered: 03/04/20231939 IMPRESSION: 1. No acute intracranial abnormality. 2. Chronic ischemic changes are present as described. 3. There is mild acute and chronic paranasal sinus disease. ASSESSMENT: ASPECTS ([place] Stroke Program Early CT Score) is 10. Impression By: Jose Juan Schuler M.D. RADIOLOGY - XR CHEST 1 V 03/05 0501 Report Impression - Status: SIGNED Entered: 03/05/2023 0827 IMPRESSION: 1. Unchanged mild bibasilar airspace disease. 2. Lines and tubes, as above. Impression By: [email or web address] - Margarito Borges M.D. RADIOLOGY - XR ABDOMEN 1V (KUB) 03/05 0838 Report Impression - Status: SIGNED Entered: 03/05/2023 0852 IMPRESSION: No pathologic bowel distention. Impression By: [email or web address] - Davi Walton M.D. Results: labs reviewed, vital signs stable, rythm personally rev'd, x-ray personally reviewed, current med profile rev'd Diagnosis, Assessment Plan Hospital course to date: This is a pleasant 72 year old male with past medical history of hypertension, dyslipidemia, DM-2 (on insulin), former smoker (quit 2018), BPH, prostate CA s/p radiation, COPD (uses inhaler at home, no home oxygen), and PE (November 2022 on eliquis) who presented to [facility] with chest pain, dyspnea on exertion, and NSTEMI. Coronary angiogram was done and revealed severe multivessel coronary artery disease. Patient was then transferred to [facility] for CV surgery evaluation and need for CABG. 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 The surgery, risks involved, STS score, benefits, complications and alternatives were explained to the patient and his brother. He acknowledged understanding and is willing to proceed. We will tentatively schedule him for surgery tomorrow morning. Further recommendations to follow. 03/04/23 CABG x 4 (MCCORMICK-LAD,SVG-Leana, SVG-OM, SVG-PDA) ZANE PEREA (LGSV) Posterior pericardiotomy 03/05/23 POD 1 Patient alert, awake, and oriented Labs and CXR reviewed On bipap 12/5 40%, wean off as tolerated Trend abgs Wean off levo as tolerated Keep both chest tubes Monitor strict I Os and renal function PT/OT, ambulate, OOB in chair DVT ppx with SCDs Monitor patient closely in CVICU Consultants: anesthesiology, cardiology, cardiovascular surgery, critical/ director of search engine marketing, hospitalist at 2030 RPT #:[id number] END OF REPORT [facility] 2023-03-05 16:57:00 [facility] ([facility]) Critical Care Progress Note REPORT#:[id number] REPORT STATUS: Signed DATE:03/05/23 TIME: 1656 PATIENT: TEVIN NYE UNIT #: [id number] ROOM/BED: [place] [id number] : 51 AGE: 72 SEX: M ATTEND: Luci Beyer MD ADM AUTHOR: Dina Mccain MD * ALL edits or amendments must be made on the electronic/computer document * Subjective Chief complaint: Dyspnea Wheezing Chest pain/Unstable angina HPI: Tevin Nye is a 72-year-old gentleman [...] isolation of left atrial appendage. He came out of the OR with norepinephrine at 4 mcg [...] dose was at 3:15 PM. Patient was given hydrocortisone 100 mg IV at 2:45 PM for chronic steroid dependence. He is currently on assist-control at 18 tidal volume 480 PEEP of 5 and 50% FiO2 and is moving tidal volumes at 470+. Vital signs are stable with heart rate 82 sinus rhythm, blood pressure 95/41 mmHg, pulse ox 100% while on 50% FiO2 and respiratory rate is 14. Chest tube output is minimal at 3 mm each. Patient was ordered albumin 25% to 50 mL. Pupils are bilaterally symmetrical and reactive to light measuring 3 mm on each side. Lab work upon arrival in the CVICU room # 2201 revealed a potassium of 3.3, glucose 230, creatinine 1.46 mg/dL, hemoglobin of 6.9 g/dL and hematocrit of 20%. Tevin Gonzalez is a 72 y.o. male with PMH of hypertension, dyslipidemia, diabetes, former smoker (quit 2008), BPH, prostate CA s/p radiation, COPD (uses inhaler at home, no home oxygen), and PE (November 2022 on eliquis) who presented to [facility] with chest pain, dyspnea on exertion, and NSTEMI. Coronary angiogram was done and revealed severe multivessel coronary artery disease. Patient was then transferred to [facility] for CV surgery evaluation and need for [...] isolation of left atrial appendage on 03/04/2023. Comments: Interval history- Patient was placed on BiPAP last night Urine output about 25 cc/h. Creatinine worsening. Objective General VS/I O Last Documented: Result Date Time Pulse Ox [...] scale Measurement Method PATIENT WEIGHT: Weight (lb): 194 Weight (oz): 10.69 Weight (kg): 88.300 Medications: Active Meds + DC'd Last 24 Hrs Ipratropium Idabel (ATROVENT) 500 MCG RTQ2H PRN PRN INH [...] ASDIR IV (CKD) Dextrose/Water (D5%W NON-DEHP) 250 ML Pantoprazole (PROTONIX) 40 MG DAILY@0600 PO Sodium Chloride (0.45% Sodium Chloride) 500 ML BOLUS ONCE ONE IV (DC) Vancomycin HCl (VANCOMYCIN HCL) 1,000 MG ONCE ONE IV (DC) Sodium Chloride (SODIUM CHLORIDE 0.9%) 250 ML Oxycodone HCl (ROXICODONE) 5 MG Q4H PRN PRN PO (DC) Aspirin (ASPIRIN) 81 MG DAILY PO Calcium Chloride (CALCIUM CHLORIDE) 2 GM ONCE ONE IV (DC) Sodium Chloride (SODIUM CHLORIDE 0.9%) 100 ML Albumin Human (ALBUMINAR 5% 12.5GM/250ML) 250 ML [...] (BRIDION) 0 .STK-MED ONE IV (DC) Ipratropium Idabel (ATROVENT) 500 MCG RTQ4H INH Sugammadex Sodium [...] ASDIR IV Dextrose/Water (DEXTROSE 5% WATER) 246 ML Glucagon (GLUCAGON) 1 MG ASDIR PRN IM Insulin Human Regular (HumuLIN R) 100 UNIT ASDIR IV (CKD) Sodium Chloride (SODIUM CHLORIDE 0.9%) 99 ML Magnesium Sulfate (MAGNESIUM SULFATE 4GM/SWFI 100ML) 100 [...] (CAN) Sodium Chloride (SODIUM CHLORIDE 0.9%) 250 ML Clindamycin Phosphate (CLEOCIN 900 MG/NS 50 ML) 50 ML PREOP ONCALL IV ( DC) Vancomycin HCl (Vancomycin 1,250 mg Inj (B2)) 1,250 MG PREOP ONCALL IV ( DC) Sodium Chloride (SODIUM CHLORIDE 0.9%) 250 ML Verapamil HCl (ISOPTIN) 16.6 MG .Q24H ONE IV (DC) Heparin Sodium (Porcine) (HEPARIN SODIUM) 1,660 UNIT Sodium Bicarbonate (SODIUM BICARBONATE) 0.7 ML Nitroglycerin/Dextrose (NITROGLYCERIN 50MG/D5W 250ML) 8.3 MG Lactated Ringer's (LACTATED RINGERS) 949.5 ML Budesonide (PULMICORT RESPULES) 0.5 MG RTBID INH (DC) Formoterol Fumarate (PERFOROMIST) 20 MCG RTBID NEB (DC) Doxycycline Hyclate (VIBRAMYCIN) 100 MG Q12HR IV (DC) Sodium Chloride (SODIUM CHLORIDE 0.9% 100 ML) 100 ML Guaifenesin (MUCINEX 600MG TAB SA) 600 MG Q12HR [...] 250ML) 250 ML ASDIR IV (DC) Physical Exam Head/eyes: EOMI, PERRL Cardiovascular: normal capillary refill, normal heart sounds, regular rate and rhythm, normal S1/S2 Respiratory: aerating well, clear to auscultation, symmetric expansion Abdomen: soft, non-tender Genitourinary: urinary catheter, no bladder distention Extremities: no clubbing, no cyanosis, no edema Skin: abnormal temperature, dry, no rash Psychiatry: unable to evaluate Results Findings/data: Laboratory Tests 03/05 03/05 03/05 03/05 1543 1436 [...] 25 15 03/05 03/05 03/05 03/05 0635 0564 0442 0209 Blood Gas Puncture Site Art [...] 4L HFNC FiO2 (%) 35 40 03/04 03/04 03/04 03/04 9787 1099 5200 0404 Blood Gas Puncture Site Art Line Art [...] (-4.0 - 4.0 2.4 1.0 1.5 -8.2 L MMOL/L) ABG Hematocrit (37.5 - 50.7 %) 22 [...] (1.12 - 1.32 1.10 L 1.10 L 1.21 MMOL/L) Lactic Acid (0.9 - 1.7 mmol/l) 4.3 *H 6.5 *H 5.0 *H 3.9 H Temperature (F) 97.7 96.1 O2 Delivery Device 4L HFNC Adult Vent Adult Vent Vent Mode SPONT AC Vent Rate (/MIN) 18 FiO2 (%) 40 100 40 Tidal Volume (ml) 480 PEEP (cmH2O) 5 5 Pressure Support (cmH2O) 03/04 1758 1733 Blood Gas Puncture Site [...] 03/05 03/05 03/05 03/05 1006 0748 0743 0693 0577 Chemistry Sodium (134 - 147 mEq/L) 148 [...] 03/05 03/05 03/04 0442 0209 0201 0201 2348 Chemistry Sodium (134 - 147 mEq/L) 150 [...] 3.40 03/04 03/04 03/04 03/04 03/04 2259 2 2131 2055 1941 Chemistry Sodium (134 - 147 mEq/L) 151 H [...] Albumin (3.4 - 5.0 g/dL) 2.80 L 03/047 1758 1743 1733 Chemistry Sodium (134 - [...] INR (0.8 - 1.2) 1.5 H PTT (Perry) (25.0 - 39.5 Seconds) 30.8 PT Patient/Control Mix (9.3 - 12.9 SECONDS) 16.4 H Activated Coag Time (74 - 137 SEC) 149 H Laboratory Tests 03/05 03/05 03/04 03/04 1052 0201 2132 1743 Hematology WBC (4.5 - 11.0 x10 3/uL) 7.2 [...] L 3.1 L 3.3 L 6.5 L Grainger % (Auto) (4.8 - 9.0 %) 10.3 [...] L 0.12 L 0.17 L 0.59 L Grainger # (Auto) (0.1 - 0.8 x10 3/uL) [...] Plt Morphology Comment NORMAL Laboratory Tests 03/05/23 1610: [Embedded Image Not Available] 03/05/23 1052: [Embedded Image Not Available] 03/05/23 0748: [Embedded Image Not Available] 03/05/23 0201: [Embedded Image Not Available] 03/04/23 2132: [Embedded Image Not Available] 03/04/23 1743: [Embedded Image Not Available] Microbiology: 03/03 1952 NASAL: MSSA Surveillance Screen - COMP 03/03 1952 NASAL: MRSA DNA Surveillance Screen - COMP Radiology data Recent Impressions: RADIOLOGY - XR CHEST 1 V 03/04 1822 Report Impression - Status: SIGNED Entered: 03/04/2023 193 IMPRESSION: 1. Lines and tubes are in satisfactory position. 2. St. Mild bibasilar atelectasis. ernal wires are seen Impression By: Jose Juan Schuler M.D. CAT SCAN - CT HEAD/BRAIN W/O CONT 03/04 1933 Report Impression - Status: SIGNED Entered: 03/04/20231939 IMPRESSION: 1. No acute intracranial abnormality. 2. Chronic ischemic changes are present as described. 3. There is mild acute and chronic paranasal sinus disease. ASSESSMENT: ASPECTS ([place] Stroke Program Early CT Score) is 10. Impression By: Jose Juan Schuler M.D. RADIOLOGY - XR CHEST 1 V 03/05 0501 Report Impression - Status: SIGNED Entered: 03/05/2023 0827 IMPRESSION: 1. Unchanged mild bibasilar airspace disease. 2. Lines and tubes, as above. Impression By: [email or web address] Og Borges M.D. RADIOLOGY - XR ABDOMEN 1V (KUB) 03/05 0838 Report Impression - Status: SIGNED Entered: 03/05/2023 0852 IMPRESSION: No pathologic bowel distention. Impression By: [email or web address] Og Walton M.D. Diagnosis, Assessment Plan Free text A P: Problem List: Chest pain Wheezing Dyspnea Multivessel coronary artery disease Non-ST elevation UT Status post CABG x5 and ILAA Elective ventilator dependence Acute pulmonary insufficiency following major cardiothoracic surgery Acute blood loss anemia Metabolic acidosis Lactic acidosis Hypokalemia Hyperglycemia Chronic steroid dependence Severe left carotid stenosis History of severe COPD Assessment and Plan: Tevin [...] isolation of left atrial appendage. He came out of the OR with norepinephrine at 4 mcg [...] dose was at 3:15 PM. Patient was given hydrocortisone 100 mg IV at 2:45 PM for chronic steroid dependence. He is currently on assist-control at 18 tidal volume 480 PEEP of 5 and 50% FiO2 and is moving tidal volumes at 470+. Vital signs are stable with heart rate 82 sinus rhythm, blood pressure 95/41 mmHg, pulse ox 100% while on 50% FiO2 and respiratory rate is 14. Chest tube output is minimal at 3 mm each. Patient was ordered albumin 25% to 50 mL. Pupils are bilaterally symmetrical and reactive to light measuring 3 mm on each side. Lab work upon arrival in the CVICU room # 2201 revealed a potassium of 3.3, glucose 230, creatinine 1.46 mg/dL, hemoglobin of 6.9 g/dL and hematocrit of 20%. Tevin Ryancarlos is a 72 y.o. male with PMH of hypertension, dyslipidemia, diabetes, former smoker (quit 2008), BPH, prostate CA s/p radiation, COPD (uses inhaler at home, no home oxygen), and PE (November 2022 on eliquis) who presented to [facility] with chest pain, dyspnea on exertion, and NSTEMI. Coronary angiogram was done and revealed severe multivessel coronary artery disease. Patient was then transferred to [facility] for CV surgery evaluation and need for [...] postop day 0 after CABG x5 and ILAA Has severe left carotid stenosis Optimize systolic blood pressure to greater than 130 mmHg Patient was on chronic steroid therapy with Solu-Medrol Adrenal cortical support with hydrocortisone 25 mg IV every 8 hours Has acute blood loss anemia with a hemoglobin of 6.9 g/dL Transfuse 2 units of packed red cells Patient received Hydrocortisone 100 mg IV at 2:45 PM Start on Hydrocortisone 25 mg every 8 hours Also received parasternal block Currently on assist-control at 18 tidal volume 480 PEEP of 5 and 50% FiO2 Latest blood gas shows a pH of 7.28, pCO2 of 43 mmHg, pO2 of 175 mmHg and bicarbonate of 20 mmol with base excess at -6.5 Patient has been ordered 1 amp of sodium bicarbonate Recheck ABGs in 1 hour Chest tube output is minimal at 3 mL in both left pleural and mediastinal chest tube Blood pressure is low upon arrival at 95/41 mm of Hg Optimize blood pressure with Norepinephrine, titrate to a map of 70 or greater Avoid sedation Monitor chest tube output Pupils are bilaterally symmetrical and reactive to light measuring 3 mm on each side Replete potassium, check magnesium and ionized calcium Follow BMP Glycemic control with insulin drip, latest blood glucose is 230 mg/dL SCDs for DVT prophylaxis Noé Madrid MD [facility] 03/04/2023 6.32 PM 03/05/2023 Neurologically patient is at baseline. Avoid all opioids. Continue with Tylenol IV. Patient is requiring BiPAP. Once taken on the BiPAP became hypercapnic. Continue with the AVAPS 450. ABG slowly improving. Pulmonary following. On IV steroids. On nebs. Patient has underlying emphysema. Chest x-ray and ABG reviewed. Patient blood pressures on the softer side. Continue keep higher perfusion pressure. Is on dopamine 3 mics. To help with the renal output. Creatinine has worsened to 2.7. Still making urine. Renal following. Minimize fluid intake. Insulin drip. Continue monitoring blood sugars. Continue aspirin and Plavix. Continue to monitor chest tube output. White count is stable. Hemoglobin stable. LFTs normal. SCDs for DVT prophylaxis. On PPI Total critical care time 60 minutes excluding procedures Consultants: anesthesiology, cardiology, cardiovascular surgery, critical/ director of search engine marketing, hospitalist at 1723 RPT #:[id number] END OF REPORT [facility] 2023-03-05 15:46:00 [facility] ([facility] Nephrology Consultation Note REPORT#:[id number] REPORT STATUS: Signed DATE:03/05/23 TIME: 154 PATIENT: TEVIN NYE UNIT #: [id number] ROOM/BED: [place] [id number] : 51 AGE: 72 SEX: M ATTEND: Luci Beyer MD ADM AUTHOR: Glendy Paz MD * ALL edits or amendments must be made on the electronic/computer document * History of Present Illness Reason for consult: JERAMY HPI: Patient is a 72 y.o. male with PMH of hypertension, dyslipidemia, diabetes, BPH, prostate CA s/p radiation, COPD, and history of PE on eliquis who was originally presented to [facility] with chest pain, dyspnea on exertion, and NSTEMI. Coronary angiogram showed severe multivessel coronary artery disease. Patient was then transferred to [facility] for CV surgery evaluation. Patient had CT with IV contrast as preop on March 03, 2023 and then underwent elective CABG x5 and isolation of left atrial appendage on . Currently in ICU, on BiPAP and n.p.o. He has worsening creatinine. Last night had 2 bouts of V. tach. Was on low-dose Levophed and now switched to dopamine. Urine output 25 to 30 cc/h. Nephrology was called. History - Adult longitudinal Past medical history: Reports: COPD, Diabetes mellitus, Hypertension, BPH, Dyslipidemia. Past surgical history: Reports: Knee procedure, Lung surgery (collapsed lung). Additional family history: UTO Alcohol use: Denies EtOH use Drug use: Denies recreational drugs Smoking status for patients 13 years old or older: Former Smoker Packs per day: 1 Years smoked: 20 Pack years: 20 Allergies: Coded Allergies: Penicillins (USE COMMENT BUTTON 03/03/23) PT STATES THAT HE WAS JUST TOLD THAT HE'S ALLERGIC TO PENICILLIN AND ITS NOT GONNA WORK FOR HIM Review of Systems Constitutional: Denies: chills, fatigue, fever, generalized weakness, lethargy, malaise, recent wt loss, other. Additional notes: Complains of pain at surgery site Objective General VS/I O: Vital Signs: Date Time Temp Pulse Resp B/P B/P Pulse O2 O2 Flow FiO2 Mean Ox Delivery Rate 03/05 1208 90 99 40 03/05 0830 74 100 40 03/05 0830 100 BiPAP 40 03/05 0800 BiPAP 40 03/05 0708 98.2 82 17 119/57 77 97 03/05 0630 98.1 79 14 131/58 84 100 03/05 0600 98.2 78 13 105/55 75 99 03/05 0530 98.2 83 17 107/53 76 98 03/05 0520 80 100 40 03/05 0520 100 BiPAP 40 03/05 0500 97.9 86 18 120/56 80 94 03/05 0433 96.1 92 22 117/53 77 98 03/05 0400 97.7 88 15 123/54 78 98 03/05 0330 97.9 80 14 82/45 61 95 03/05 0300 98.1 82 12 111/59 79 98 03/05 0300 98 High flow 3 nasal cannula 03/05 0230 98.1 85 17 109/55 79 98 03/05 0200 98.1 86 15 116/56 81 99 03/05 0130 98.1 92 23 126/56 84 95 03/05 0100 97.7 88 18 141/65 93 98 03/05 0044 100 High flow 3 nasal cannula 03/05 0030 97.5 87 15 128/60 87 100 03/05 0015 97.5 84 15 115/58 78 100 03/05 0000 97.5 84 14 114/55 77 100 03/04 2330 97.3 89 23 106/57 77 98 03/04 2300 97.7 87 21 111/48 70 98 03/04 2230 97.3 85 15 108/51 74 98 03/04 2200 Nasal 4 cannula 03/04 2200 113/50 71 03/04 2200 97.2 85 14 71 97 03/04 2138 98 High flow 4 nasal cannula [...] 99 03/04 1955 87 100 100 03/04 1945 95.5 95 21 187/72 118 100 03/04 [...] scale Measurement Method PATIENT WEIGHT: Weight (lb): 194 Weight (oz): 10.69 Weight (kg): 88.300 Medications: Active Meds + DC'd Last 24 Hrs Ipratropium Idabel (ATROVENT) 500 MCG RTQ2H PRN PRN INH [...] ASDIR IV (CKD) Dextrose/Water (D5%W NON-DEHP) 250 ML Pantoprazole (PROTONIX) 40 MG DAILY@0600 PO Sodium Chloride (0.45% Sodium Chloride) 500 ML BOLUS ONCE ONE IV (DC) Vancomycin HCl (VANCOMYCIN HCL) 1,000 MG ONCE ONE IV (DC) Sodium Chloride (SODIUM CHLORIDE 0.9%) 250 ML Oxycodone HCl (ROXICODONE) 5 MG Q4H PRN PRN PO (DC) Aspirin (ASPIRIN) 81 MG DAILY PO Calcium Chloride (CALCIUM CHLORIDE) 2 GM ONCE ONE IV (DC) Sodium Chloride (SODIUM CHLORIDE 0.9%) 100 ML Albumin Human (ALBUMINAR 5% 12.5GM/250ML) 250 ML [...] (BRIDION) 0 .STK-MED ONE IV (DC) Ipratropium [place]abel (ATROVENT) 500 MCG RTQ4H INH Sugammadex Sodium [...] ASDIR IV Dextrose/Water (DEXTROSE 5% WATER) 246 ML Glucagon (GLUCAGON) 1 MG ASDIR PRN IM Insulin Human Regular (HumuLIN R) 100 UNIT ASDIR IV (CKD) Sodium Chloride (SODIUM CHLORIDE 0.9%) 99 ML Magnesium Sulfate (MAGNESIUM SULFATE 4GM/SWFI 100ML) 100 [...] (CAN) Sodium Chloride (SODIUM CHLORIDE 0.9%) 250 ML Insulin Human Lispro (HUMALOG) 0 AC HS SUBQ (DC) Clindamycin Phosphate (CLEOCIN 900 MG/NS 50 ML) 50 ML PREOP ONCALL IV ( DC) Vancomycin HCl (Vancomycin 1,250 mg Inj (B2)) 1,250 MG PREOP ONCALL IV ( DC) Sodium Chloride (SODIUM CHLORIDE 0.9%) 250 ML Verapamil HCl (ISOPTIN) 16.6 MG .Q24H ONE IV (DC) Heparin Sodium (Porcine) (HEPARIN SODIUM) 1,660 UNIT Sodium Bicarbonate (SODIUM BICARBONATE) 0.7 ML Nitroglycerin/Dextrose (NITROGLYCERIN 50MG/D5W 250ML) 8.3 MG Lactated Ringer's (LACTATED RINGERS) 949.5 ML Budesonide (PULMICORT RESPULES) 0.5 MG RTBID INH (DC) Formoterol Fumarate (PERFOROMIST) 20 MCG RTBID NEB (DC) Doxycycline Hyclate (VIBRAMYCIN) 100 MG Q12HR IV (DC) Sodium Chloride (SODIUM CHLORIDE 0.9% 100 ML) 100 ML Guaifenesin (MUCINEX 600MG TAB SA) 600 MG Q12HR PO (DC) Ipratropium Idabel (ATROVENT) 500 MCG RTQ6H INH (DC) Mupirocin [...] 250ML) 250 ML ASDIR IV (DC) Physical Exam General appearance: respiratory support, awake, no respiratory distress Head/eyes: atraumatic, normocephalic, PERRLA Neck: no JVD, no lymphadenopathy Cardiovascular: normal heart sounds, regular rate and rhythm, no rub Respiratory: decreased breath sounds, aerating well, no distress Abdomen: non-tender, normal bowel sounds, soft, no rebound Genitourinary: urinary catheter, urine Extremities: no edema, no gangrene Neuro/STONE BREAKER: alert, normal speech Results Findings/Data: Laboratory Tests 03/05 03/05 03/05 03/05 1436 1047 [...] 25 15 03/05 03/05 03/05 03/04 0532 9344 5127 5376 Blood Gas Puncture Site Art Line Art [...] Pressure Support (cmH2O) 03/04 1758 1733 1636 1609 Blood Gas Puncture Site Art Line O2 [...] 03/05 03/05 03/05 1436 1047 1006 0748 0743 Chemistry Sodium (134 - 147 [...] 03/04 03/04 03/04 0201 2348 2259 2132 2132 Chemistry Sodium (134 - 147 mEq/L) [...] Ionized Calcium Breana (1.09 - 1.30 0.95 L MMOL/L) Magnesium (1.80 - 2.40 mg/dL) 2.66 H Total Bilirubin (0.0 - 1.0 mg/dL) 0.40 0.70 Direct Bilirubin (0.0 - 0.30 MG/DL) 0.20 0.40 H Indirect Bilirubin (MG/DL) 0.20 0.30 AST (15 - 37 IUnit/L) 40 H 40 H ALT (30 - 65 IUnit/L) 13 L 11 L Total Alk Phosphatase (20 - 125 26 28 IUnit/L) Total Protein (6.4 - 8.2 g/dL) 5.1 L 4.8 L Albumin (3.4 - 5.0 g/dL) 3.40 2.80 L 03/046 1942 1907 1758 1743 Chemistry Sodium (134 - [...] INR (0.8 - 1.2) 1.5 H PTT (Perry) (25.0 - 39.5 Seconds) 30.8 PT Patient/Control Mix (9.3 - 12.9 SECONDS) 16.4 H Activated Coag Time (74 - 137 SEC) 149 H 630 H 756 H Laboratory Tests 03/05 03/05 03/04 03/04 1052 0201 2132 1743 Hematology WBC (4.5 - 11.0 x10 3/uL) 7.2 [...] L 3.1 L 3.3 L 6.5 L Grainger % (Auto) (4.8 - 9.0 %) 10.3 [...] L 0.12 L 0.17 L 0.59 L Grainger # (Auto) (0.1 - 0.8 x10 3/uL) [...] THOUSAND) 140-175 Plt Morphology Comment NORMAL Radiology data: Recent Impressions: RADIOLOGY - XR CHEST 1 V 03/04 1822 Report Impression - Status: SIGNED Entered: 03/04/2023 193 IMPRESSION: 1. Lines and tubes are in satisfactory position. 2. St. Mild bibasilar atelectasis. ernal wires are seen Impression By: Jose Juan Schuler M.D. CAT SCAN - CT HEAD/BRAIN W/O CONT 03/04 1933 Report Impression - Status: SIGNED Entered: 03/04/2023 194 IMPRESSION: 1. No acute intracranial abnormality. 2. Chronic ischemic changes are present as described. 3. There is mild acute and chronic paranasal sinus disease. ASSESSMENT: ASPECTS ([place] Stroke Program Early CT Score) is 10. Impression By: Jose Juan Schuler M.D. RADIOLOGY - XR CHEST 1 V 03/05 0501 Report Impression - Status: SIGNED Entered: 03/05/2023 0827 IMPRESSION: 1. Unchanged mild bibasilar airspace disease. 2. Lines and tubes, as above. Impression By: [email or web address] Og Borges M.D. RADIOLOGY - XR ABDOMEN 1V (KUB) 03/05 0838 Report Impression - Status: SIGNED Entered: 03/05/2023 0852 IMPRESSION: No pathologic bowel distention. Impression By: [email or web address] - Davi Walton M.D. CT ANGIO CHEST 1. No [...] Diagnosis, Assessment Plan Free Text DxA P Notes Free text DxA P notes: 1. JERAMY likely ATN secondary to IV contrast. Marginal urine output. Patient is n.p.o. as currently on BiPAP. Start NS at 75 cc/h for 1 L. Monitor respiratory status closely. Avoid nephrotoxic medications. 2. Acute hypercapnic respiratory failure with COPD on BiPAP. Pulmonary following 3. Coronary disease status post CABG postop care per CT surgery 4. Left carotid artery stenosis Discussed with ICC Thank you for the consult 1. Left ventricle: The cavity size is normal. Wall thickness is normal. Systolic function is mildly reduced. The estimated ejection fraction is 40-44%. Doppler parameters are consistent with abnormal left ventricular relaxation (grade 1 diastolic dysfunction). 2. Regional wall motion abnormality: Severe hypokinesis of the apical anterior, apical septal, apical lateral, and apical myocardium; hypokinesis of the basal-mid anteroseptal myocardium. 3. Right ventricle: Systolic pressure is moderately increased. 4. Mitral valve: There is mild regurgitation. 5. Tricuspid valve: Estimated right ventricular systolic pressure is 46 mmHg. There is moderate regurgitation. 6. Pericardium, extracardiac: A trivial pericardial effusion is identified. 7. Inferior vena cava: The vessel is dilated. The respirophasic diameter changes are in the normal range (= 50%). Inferior vena cava diameter is 2.1 cm. on 03/04/23 at 1717 at 1342 RPT #:[id number] END OF REPORT [facility] 2023-03-05 13:33:00 [facility] Pulmonology Progress Note REPORT#:[id number] REPORT STATUS: Signed DATE:03/05/23 TIME: 1333 PATIENT: TEVIN NYE UNIT #: [id number] ROOM/BED: [place] [address] : 51 AGE: 72 SEX: M ATTEND: Luci Beyer MD ADM AUTHOR: Sharmila Alan * ALL edits or amendments must be made on the electronic/computer document * Subjective Comments: On BIPAP, post op, off pressors ROS Unable to obtain due to: On BIPAP Objective General VS/I O: Last Documented: Result Date Time Pulse Ox [...] scale Measurement Method PATIENT WEIGHT: Weight (lb): 194 Weight (oz): 10.69 Weight (kg): 88.300 Medications: Active Meds + DC'd Last 24 Hrs Ipratropium Idabel (ATROVENT) 500 MCG RTQ2H PRN PRN INH [...] ASDIR IV (CKD) Dextrose/Water (D5%W NON-DEHP) 250 ML Pantoprazole (PROTONIX) 40 MG DAILY@0600 PO Sodium Chloride (0.45% Sodium Chloride) 500 ML BOLUS ONCE ONE IV (DC) Vancomycin HCl (VANCOMYCIN HCL) 1,000 MG ONCE ONE IV (DC) Sodium Chloride (SODIUM CHLORIDE 0.9%) 250 ML Oxycodone HCl (ROXICODONE) 5 MG Q4H PRN PRN PO (DC) Aspirin (ASPIRIN) 81 MG DAILY PO Calcium Chloride (CALCIUM CHLORIDE) 2 GM ONCE ONE IV (DC) Sodium Chloride (SODIUM CHLORIDE 0.9%) 100 ML Albumin Human (ALBUMINAR 5% 12.5GM/250ML) 250 ML [...] (BRIDION) 0 .STK-MED ONE IV (DC) Ipratropium Idabel (ATROVENT) 500 MCG RTQ4H INH Sugammadex Sodium [...] ASDIR IV Dextrose/Water (DEXTROSE 5% WATER) 246 ML Glucagon (GLUCAGON) 1 MG ASDIR PRN IM Insulin Human Regular (HumuLIN R) 100 UNIT ASDIR IV (CKD) Sodium Chloride (SODIUM CHLORIDE 0.9%) 99 ML Magnesium Sulfate (MAGNESIUM SULFATE 4GM/SWFI 100ML) 100 [...] (CAN) Sodium Chloride (SODIUM CHLORIDE 0.9%) 250 ML Albuterol Sulfate (VENTOLIN HFA) 0 .STK-MED ONE INH (DC) Hydrocortisone Sodium Succinate (Solu-CORTEF) 100 MG ONCE ONE IV (DC) Protamine Sulfate (PROTAMINE SULFATE) 0 .STK-MED ONE IV (DC) Insulin Human Lispro (HUMALOG) 0 AC HS SUBQ (DC) Clindamycin Phosphate (CLEOCIN 900 MG/NS 50 ML) 50 ML PREOP ONCALL IV ( DC) Vancomycin HCl (Vancomycin 1,250 mg Inj (B2)) 1,250 MG PREOP ONCALL IV ( DC) Sodium Chloride (SODIUM CHLORIDE 0.9%) 250 ML Verapamil HCl (ISOPTIN) 16.6 MG .Q24H ONE IV (DC) Heparin Sodium (Porcine) (HEPARIN SODIUM) 1,660 UNIT Sodium Bicarbonate (SODIUM BICARBONATE) 0.7 ML Nitroglycerin/Dextrose (NITROGLYCERIN 50MG/D5W 250ML) 8.3 MG Lactated Ringer's (LACTATED RINGERS) 949.5 ML Budesonide (PULMICORT RESPULES) 0.5 MG RTBID INH (DC) Formoterol Fumarate (PERFOROMIST) 20 MCG RTBID NEB (DC) Doxycycline Hyclate (VIBRAMYCIN) 100 MG Q12HR IV (DC) Sodium Chloride (SODIUM CHLORIDE 0.9% 100 ML) 100 ML Guaifenesin (MUCINEX 600MG TAB SA) 600 MG Q12HR PO (DC) Ipratropium Idabel (ATROVENT) 500 MCG RTQ6H INH (DC) Mupirocin [...] 250ML) 250 ML ASDIR IV (DC) Physical Exam General appearance: respiratory support, sleeping comfortably Head/eyes: atraumatic, normocephalic, PERRL Neck: supple/no meningismus, no bruit/NL carotids, no JVD, no lymphadenopathy Cardiovascular: normal S1/S2, no rub, no gallop Respiratory/chest: decreased breath sounds, prolonged exp phase, wheezing, symmetric expansion Abdomen: soft, normal bowel sounds, no distention, no guarding Extremities: no clubbing, no cyanosis Neuro/STONE BREAKER: alert, oriented X 3, no motor deficits Skin: dry, normal color Psychiatry: normal affect, no hallucinations Results Findings/Data: Laboratory Tests 03/05/23 1052: [Embedded Image Not Available] 03/05/23 0748: [Embedded Image Not Available] 03/05/23 0201: [Embedded Image Not Available] 03/04/23 2132: [Embedded Image Not Available] 03/04/23 1743: [Embedded Image Not Available] Laboratory Tests 03/05 03/05 03/05 03/05 1047 0743 [...] BiPAP Bagging BiPAP BiPAP Vent Mode CPAP/PS 12/ 12/5 Vent Rate (/MIN) 24 FiO2 (%) 30 30 35 40 PEEP (cmH2O) 7 Pressure Support (cmH2O) 15 03/05 03/05 03/04 03/04 0442 1952 6117 2793 Blood Gas Puncture Site Art Line Art [...] (cmH2O) 5 Pressure Support (cmH2O) 20 03/04 1907 1758 1733 Blood Gas Puncture Site Art Line Art [...] 4.0 1.5 -8.2 L -6.5 L -4.4 L MMOL/L) ABG Hematocrit (37.5 - 50.7 %) 23 [...] (1.12 - 1.32 1.10 L 1.21 1.21 1.22 MMOL/L) Lactic Acid (0.9 - 1.7 mmol/l) 5.0 [...] 03/05 03/05 03/05 1047 1006 0748 0743 0635 Chemistry Sodium (134 - 147 mEq/L) 148 [...] 03/04 03/04 03/04 2348 2259 2132 2132 2056 Chemistry Sodium (134 - 147 mEq/L) 151 H [...] Ionized Calcium Breana (1.09 - 1.30 0.95 L MMOL/L) Total Bilirubin (0.0 - 1.0 mg/dL) 0.70 [...] 03/04 03/04 03/04 1743 1731 1637 1611 1539 Coagulation INR (0.8 - 1.2) 1.5 H PTT (Jarrtet) (25.0 - 39.5 Seconds) 30.8 PT Patient/Control Mix (9.3 - 12.9 16.4 H SECONDS) Activated Coag Time (74 - 137 SEC) 149 H 630 H 756 H 967 H 03/04 1508 Coagulation Activated Coag Time (74 - 137 SEC) 834 H Laboratory Tests 03/05 03/05 03/04 03/04 1052 0201 2132 1743 Hematology WBC (4.5 - 11.0 x10 3/uL) 7.2 [...] L 3.1 L 3.3 L 6.5 L Grainger % (Auto) (4.8 - 9.0 %) 10.3 [...] L 0.12 L 0.17 L 0.59 L Grainger # (Auto) (0.1 - 0.8 x10 3/uL) [...] THOUSAND) 140-175 Plt Morphology Comment NORMAL Radiology data: Recent Impressions: RADIOLOGY - XR CHEST 1 V 03/04 182 Report Impression - Status: SIGNED Entered: 03/04/20231936 IMPRESSION: 1. Lines and tubes are in satisfactory position. 2. St. Mild bibasilar atelectasis. ernal wires are seen Impression By: Jose Juan Schuler M.D. CAT SCAN - CT HEAD/BRAIN W/O CONT 03/04 1933 Report Impression - Status: SIGNED Entered: 03/04/2023 194 IMPRESSION: 1. No acute intracranial abnormality. 2. Chronic ischemic changes are present as described. 3. There is mild acute and chronic paranasal sinus disease. ASSESSMENT: ASPECTS ([place] Stroke Program Early CT Score) is 10. Impression By: Jose Juan Schuler M.D. RADIOLOGY - XR CHEST 1 V 03/05 0501 Report Impression - Status: SIGNED Entered: 03/05/202327 IMPRESSION: 1. Unchanged mild bibasilar airspace disease. 2. Lines and tubes, as above. Impression By: Erasmo Borges M.D. RADIOLOGY - XR ABDOMEN 1V (KUB) 03/05 0838 Report Impression - Status: SIGNED Entered: 03/05/2023 0852 IMPRESSION: No pathologic bowel distention. Impression By: [id number] - Davi Walton M.D. Results: x-ray personally reviewed Diagnosis, Assessment Plan Free Text A P: 1- Acute COPD exacerbation/postop respiratory insufficiency 2- Recent pulmonary embolism on Eliquis 3- NSTEMI/Multivessel coronary artery disease 5- Hypertension 6- History of tobacco use 7- Obesity 8- Acute renal failure 9- S/P CABG X4 03/04/23 - BIPAP support, AVAPS mode - IV Solu-Medrol 40 mg every 12 hours - Pulmicort Perforomist and Atrovent nebulizers - Chest tubes per CTS - Mucomyst/Hypersal as needed - CTA chest reviewed, no PE, emphysema, small effusions, RLL 1.5 cm Nodule. Need repeat CT chest in 6-8 weeks. Patient informed - Lower extremity Doppler negative for DVT - D/W ICC at 1337 RPT #:[id number] END OF REPORT [facility] 2023-03-05 10:01:00 [facility] Neurology Progress Note REPORT#:[id number] REPORT STATUS: Signed DATE:03/05/23 TIME: 1001 PATIENT: TEVIN NYE UNIT #: [id number] ROOM/BED: [place] [address] : 51 AGE: 72 SEX: M ATTEND: Luci Beyer MD ADM AUTHOR: Ko Kerr MD * ALL edits or amendments must be made on the electronic/computer document * Subjective Chief complaint: encephalopathy, non responsive HPI: Patient significantly improved today. Extubated. On BiPAP. Moves all extremities and follows commands. Review of Systems Free Text ROS Notes Free Text ROS Notes: A 12 point review of systems was reviewed with the patient and negative other than noted in HPI. Objective General VS: Last Documented: Result Date Time Pulse Ox 97 03/05 0708 B/P 119/57 03/05 0708 B/P Mean 77 03/05 0708 Temp 36.8 03/05 0708 Pulse 82 03/05 0708 Resp 17 03/05 0708 FiO2 40 03/05 0520 O2 Delivery BiPAP 03/05 0520 O2 Flow Rate 3 03/05 0300 PATIENT WEIGHT: Weight (lb): 194 Weight (oz): 10.69 Weight (kg): 88.300 Medications Current Home Medications OXYBUTYNIN (DITROPAN) 5 MG PO BID TAMSULOSIN ER [...] DAILY Active Meds + DC'd Last 24 Hrs Ipratropium Idabel (ATROVENT) 500 MCG RTQ2H PRN PRN INH [...] ASDIR IV (CKD) Dextrose/Water (D5%W NON-DEHP) 250 ML Pantoprazole (PROTONIX) 40 MG DAILY@0600 PO Sodium Chloride (0.45% Sodium Chloride) 500 ML BOLUS ONCE ONE IV (DC) Vancomycin HCl (VANCOMYCIN HCL) 1,000 MG ONCE ONE IV (DC) Sodium Chloride (SODIUM CHLORIDE 0.9%) 250 ML Oxycodone HCl (ROXICODONE) 5 MG Q4H PRN PRN PO Aspirin (ASPIRIN) 81 MG DAILY PO Calcium Chloride (CALCIUM CHLORIDE) 2 GM ONCE ONE IV (DC) Sodium Chloride (SODIUM CHLORIDE 0.9%) 100 ML Albumin Human (ALBUMINAR 5% 12.5GM/250ML) 250 ML [...] (BRIDION) 0 .STK-MED ONE IV (DC) Ipratropium Idabel (ATROVENT) 500 MCG RTQ4H INH Sugammadex Sodium [...] ASDIR IV Dextrose/Water (DEXTROSE 5% WATER) 246 ML Glucagon (GLUCAGON) 1 MG ASDIR PRN IM Insulin Human Regular (HumuLIN R) 100 UNIT ASDIR IV (CKD) Sodium Chloride (SODIUM CHLORIDE 0.9%) 99 ML Magnesium Sulfate (MAGNESIUM SULFATE 4GM/SWFI 100ML) 100 [...] (CAN) Sodium Chloride (SODIUM CHLORIDE 0.9%) 250 ML Albuterol Sulfate (VENTOLIN HFA) 0 .STK-MED ONE INH [...] 50 ML) 50 ML .STK-MED ONE IV ( DC) Sodium Chloride (SODIUM CHLORIDE 0.9%) 250 ML .STK-MED ONE IV (DC) Vancomycin HCl (Vancomycin 1,250 mg Inj (B2)) 0 .STK-MED ONE IV (DC) Insulin Human Lispro (HUMALOG) 0 AC HS SUBQ (DC) Rocuronium Idabel (ZEMURON) 0 .STK-MED ONE IV (DC) Clindamycin Phosphate (CLEOCIN 900 MG/NS 50 ML) 50 ML PREOP ONCALL IV ( DC) Vancomycin HCl (Vancomycin 1,250 mg Inj (B2)) 1,250 MG PREOP ONCALL IV ( DC) Sodium Chloride (SODIUM CHLORIDE 0.9%) 250 ML Verapamil HCl (ISOPTIN) 16.6 MG .Q24H ONE IV (DC) Heparin Sodium (Porcine) (HEPARIN SODIUM) 1,660 UNIT Sodium Bicarbonate (SODIUM BICARBONATE) 0.7 ML Nitroglycerin/Dextrose (NITROGLYCERIN 50MG/D5W 250ML) 8.3 MG Lactated Ringer's (LACTATED RINGERS) 949.5 ML Budesonide (PULMICORT RESPULES) 0.5 MG RTBID INH (DC) Formoterol Fumarate (PERFOROMIST) 20 MCG RTBID NEB (DC) Doxycycline Hyclate (VIBRAMYCIN) 100 MG Q12HR IV (DC) Sodium Chloride (SODIUM CHLORIDE 0.9% 100 ML) 100 ML Guaifenesin (MUCINEX 600MG TAB SA) 600 MG Q12HR PO (DC) Ipratropium Idabel (ATROVENT) 500 MCG RTQ6H INH (DC) Mupirocin [...] 250 ML ASDIR IV (DC) Dietitian nutrition assessment The data set between the solid lines has been imported from the dietitian's assessment. BMI Calculated: 30.5 Nutrition related diagnosis: Nutrition diagnosis details: Nutrition problem: Nutrition etiology: Nutrition signs and symptoms: Nutrition prescription: Dietitian name: Assessment completed: Physical Exam Neuro comment: GEN: NAD, pleasant, cooperative CVS: RRR, no carotid bruit CHEST: No signs of resp distress, on BiPAP ABD: Soft, NTTP NEURO MENTAL STATUS: AAOx3, memory intact, fund of knowledge appropriate LANG/SPEECH: Naming and repetition intact, fluent, follows 3-step commands CRANIAL NERVES: II: Pupils equal and reactive, no RAPD, no VF deficits, normal fundus III, IV, : EOM intact, no gaze preference or deviation, no nystagmus. V: normal sensation in V1, V2, and V3 segments bilaterally VII: no asymmetry, no nasolabial fold flattening VIII: normal hearing to speech IX, X: normal palatal elevation, no uvular deviation XI: 5/5 head turn and 5/5 shoulder shrug bilaterally XII: midline tongue protrusion MOTOR: 5/5 muscle power in Rt shoulder abductors/adductors, elbow flexors/extensors, wrist flexors/extensors, finger abductors/adductors. 5/5 in Rt hipflexors/ extensors, knee flexors/extensors, ankle dorsiflexors and planter flexors. 5/5 muscle power in Lt shoulder abductors/adductors, elbow flexors/extensors, wrist flexors/extensors, finger abductors/adductors. 5/5 in Lt hipflexors/ extensors, knee flexors/extensors, ankle dorsiflexors and planter flexors. REFLEXES: 2/4 throughout, bilateral flexor planter response, no Nelson's, no clonus SENSORY: Normal to touch No hemineglect, no extinction to double sided stimulation (visual tactile) COORD: Normal finger to nose and heel to xavier, no tremor, no dysmetria Diagnosis, Assessment Plan Free Text A P: Patient is a 72 yo male with CAD s/p CABG today as well as severe carotid artery stenosis on the left for whom a code stroke was called due to fixed pupils after receiving narcan. Ceribell shows diffuse slowing without epileptiform activity. CTH was grossly unremarkable with no ICH, early ischemic changes and there were no hyperdense vessels noted. Discussed with Dr. Sheehan after train of four was only 1 of 4 and suggamadex was given following which the patient began to follow commands. - Can continue every 2 hours neurochecks while in the ICU, once transferred out can go to every 4 neurochecks - given improvement you can defer CTA H N - maintain SBP 110-180mmHg from neuro standpoint but will defer to cv surgery and ICC. - exam improved with NM blockade reversal - ceribell reviewed at bedside and can be removed - Please contact neurology with any change in exam. Disposition: Patient close to baseline, on BiPAP but following all commands and moving all extremities. No need for further inpatient neurologic work-up at this time. Continue neurochecks while in house and call for any changes. at 1003 RPT #:[id number] END OF REPORT [facility] 2023-03-05 06:47:00 [facility] ([facility]) Cardiology Progress Note REPORT#:[id number] REPORT STATUS: Signed DATE:03/05/23 TIME: 646 PATIENT: TEVIN NYE UNIT #: [id number] ROOM/BED: [place] [address] : 51 AGE: 72 SEX: M ATTEND: Luci Beyer MD ADM AUTHOR: Anuj Sylvester MD * ALL edits or amendments must be made on the electronic/computer document * Subjective Chief complaint: Weak Objective General VS/I O: 24 hour I O ending at 0700: 03/05 0703/04 1900 Intake Total 3628.00 Output Total 1045 [...] 97.3 85 15 108/51 74 98 03/04 2200 Nasal 4 cannula 03/04 2200 113/50 71 03/04 2200 97.2 85 14 71 97 03/048 98 High flow 4 nasal cannula 03/040 96.6 90 20 119/58 82 100 03/04 2100 96.1 84 15 115/56 78 98 03/04 2045 95.9 85 21 128/54 76 97 03/04 2032 86 13 98 03/04 2030 95.9 83 18 120/57 82 100 03/04 2025 86 98 40 03/04 2000 Ventilator 40 03/04 2000 95.5 88 18 161/74 106 99 03/04 1955 87 100 100 03/04 1945 95.5 95 21 187/72 118 100 03/04 [...] 03/04 1100 86 26 124/62 87 89 03/04 1030 76 21 132/64 92 97 03/04 [...] 153/76 106 100 PATIENT WEIGHT: Weight (lb): 194 Weight (oz): 10.69 Weight (kg): 88.300 Medications: Active Meds + DC'd Last 24 Hrs Ipratropium Idabel (ATROVENT) 500 MCG RTQ2H PRN PRN INH [...] Sodium Chloride (SODIUM CHLORIDE 0.9%) 250 ML Oxycodone HCl (ROXICODONE) 5 MG Q4H PRN PRN PO Aspirin (ASPIRIN) 81 MG DAILY PO Calcium Chloride (CALCIUM CHLORIDE) 2 GM ONCE ONE IV (DC) Sodium Chloride (SODIUM CHLORIDE 0.9%) 100 ML Albumin Human (ALBUMINAR 5% 12.5GM/250ML) 250 ML [...] (BRIDION) 0 .STK-MED ONE IV (DC) Ipratropium Idabel (ATROVENT) 500 MCG RTQ4H INH Sugammadex Sodium [...] ASDIR IV Dextrose/Water (DEXTROSE 5% WATER) 246 ML Glucagon (GLUCAGON) 1 MG ASDIR PRN IM Insulin Human Regular (HumuLIN R) 100 UNIT ASDIR IV (CKD) Sodium Chloride (SODIUM CHLORIDE 0.9%) 99 ML Magnesium Sulfate (MAGNESIUM SULFATE 4GM/SWFI 100ML) 100 [...] (CAN) Sodium Chloride (SODIUM CHLORIDE 0.9%) 250 ML Albuterol Sulfate (VENTOLIN HFA) 0 .STK-MED ONE INH [...] 50 ML) 50 ML .STK-MED ONE IV ( DC) Sodium Chloride (SODIUM CHLORIDE 0.9%) 250 ML .STK-MED ONE IV (DC) Vancomycin HCl (Vancomycin 1,250 mg Inj (B2)) 0 .STK-MED ONE IV (DC) Insulin Human Lispro (HUMALOG) 0 AC HS SUBQ (DC) Rocuronium Idabel (ZEMURON) 0 .STK-MED ONE IV (DC) Fentanyl Citrate (SUBLIMAZE) 0 .STK-MED ONE .ROUTE (DC) Dexamethasone Sodium Phosphate (DECADRON) 0 .STK-MED ONE .ROUTE (DC) Heparin Sodium (HEPARIN SODIUM) 0 .STK-MED ONE .ROUTE (DC) Lidocaine HCl (XYLOCAINE) 0 .STK-MED ONE .ROUTE (DC) Ondansetron HCl (ZOFRAN) 0 .STK-MED ONE .ROUTE (DC) Rocuronium Idabel (ZEMURON) 0 .STK-MED ONE IV (DC) Fentanyl [...] (JESUS-SYNEPHRINE 10MG/ML AMP) 0 .STK-MED ONE .ROUTE (DC ) Sodium Bicarbonate (SODIUM BICARBONATE) 0 .STK-MED ONE IV (DC) Dexamethasone Sodium Phosphate (DECADRON) 0 .STK-MED ONE .ROUTE (DC) Etomidate (AMIDATE) 0 .STK-MED ONE IV (DC) Lidocaine HCl (XYLOCAINE) 0 .STK-MED ONE .ROUTE (DC) Ondansetron HCl (ZOFRAN) 0 .STK-MED ONE .ROUTE (DC) Rocuronium Idabel (ZEMURON) 0 .STK-MED ONE IV (DC) Succinylcholine Chloride (QUELICIN FLIPTOP) 0 .STK-MED ONE IV (DC) Epinephrine HCl (EPINEPHrine 4 mg/D5W 250 mL) 250 ML .STK-MED ONE IV (DC ) Heparin Sodium (HEPARIN SODIUM) 0 .STK-MED ONE [...] 50 ML) 50 ML PREOP ONCALL IV ( DC) Vancomycin HCl (Vancomycin 1,250 mg Inj (B2)) 1,250 MG PREOP ONCALL IV ( DC) Sodium Chloride (SODIUM CHLORIDE 0.9%) 250 ML Verapamil HCl (ISOPTIN) 16.6 MG .Q24H ONE IV (DC) Heparin Sodium (Porcine) (HEPARIN SODIUM) 1,660 UNIT Sodium Bicarbonate (SODIUM BICARBONATE) 0.7 ML Nitroglycerin/Dextrose (NITROGLYCERIN 50MG/D5W 250ML) 8.3 MG Lactated Ringer's (LACTATED RINGERS) 949.5 ML Budesonide (PULMICORT RESPULES) 0.5 MG RTBID INH (DC) Formoterol Fumarate (PERFOROMIST) 20 MCG RTBID NEB (DC) Doxycycline Hyclate (VIBRAMYCIN) 100 MG Q12HR IV (DC) Sodium Chloride (SODIUM CHLORIDE 0.9% 100 ML) 100 ML Guaifenesin (MUCINEX 600MG TAB SA) 600 MG Q12HR PO (DC) Ipratropium Idabel (ATROVENT) 500 MCG RTQ6H INH (DC) Mupirocin [...] 250ML) 250 ML ASDIR IV (DC) Physical Exam General appearance: respiratory support Neck: full range of motion, non-tender, normal thyroid, supple/no meningismus, no bruit/NL carotids, no JVD, no lymphadenopathy, no masses or swelling Cardiovascular: CV assessment: regular rate and rhythm Respiratory: decreased breath sounds, clear to auscultation Abdomen: non-tender, normal bowel sounds, no distention, no guarding, no mass/ organomegaly, no pulsatile mass, no rebound Upper extremity: UE assessment: normal capillary refill, no edema Lower extremity: LE assessment: normal capillary refill, no edema Results Findings/Data: Laboratory Tests 03/05 03/05 03/05 03/05 0635 0532 [...] 4L HFNC FiO2 (%) 35 40 03/04 03/04 03/04 03/04 2259 2056 194 1907 Blood Gas Puncture Site Art Line Art [...] (-4.0 - 4.0 2.4 1.0 1.5 -8.2 L MMOL/L) ABG Hematocrit (37.5 - 50.7 %) 22 [...] (1.12 - 1.32 1.10 L 1.10 L 1.21 MMOL/L) Lactic Acid (0.9 - 1.7 mmol/l) 4.3 *H 6.5 *H 5.0 *H 3.9 H Temperature (F) 97.7 96.1 O2 Delivery Device 4L HFNC Adult Vent Adult Vent Vent Mode SPONT AC Vent Rate (/MIN) 18 FiO2 (%) 40 100 40 Tidal Volume (ml) 480 PEEP (cmH2O) 5 5 Pressure Support (cmH2O) 20 03/04 03/04 03/04 03/04 1758 1733 1636 1609 Blood Gas Puncture Site Art Line O2 [...] H 03/05 03/04 03/04 03/04 0201 2348 1883 2132 Chemistry Sodium (134 - 147 mEq/L) [...] Albumin (3.4 - 5.0 g/dL) 3.40 03/04 1907 1758 Chemistry Sodium (134 - 147 mEq/L) 151 H [...] Ionized Calcium Breana (1.09 - 1.30 0.95 L MMOL/L) Total Bilirubin (0.0 - 1.0 mg/dL) 0.70 Direct Bilirubin (0.0 - 0.30 MG/DL) 0.40 H Indirect Bilirubin (MG/DL) 0.30 AST (15 - 37 IUnit/L) 40 H ALT (30 - 65 IUnit/L) 11 L Total Alk Phosphatase (20 - 125 28 IUnit/L) Total Protein (6.4 - 8.2 g/dL) 4.8 L Albumin (3.4 - 5.0 g/dL) 2.80 L 03/04 03/04 03/04 03/04 03/04 1743 1733 1636 1609 1537 Chemistry Sodium (134 - 147 mEq/L) 143 [...] %) 3.1 L 3.3 L 6.5 L Grainger % (Auto) (4.8 - 9.0 %) 9.5 H 8.7 8.1 Eos % (Auto) (0.3 - 3.7 %) 0.0 L 0.0 L 0.2 L Baso % (Auto) (0.0 - 2.0 %) 0.0 0.2 0.1 Neut # (Auto) (2.0 - 7.6 x10 3/uL) 3.39 4.49 7.61 H Lymph # (Auto) (1.0 - 3.8 x10 3/uL) 0.12 L 0.17 L 0.59 L Grainger # (Auto) (0.1 - 0.8 x10 3/uL) [...] 2.40 mg/dL) 2.66 H 2.98 H Radiology data: Recent Impressions: RADIOLOGY - XR CHEST 1 V 03/04 0651 Report Impression - Status: SIGNED Entered: 03/04/2023 0807 IMPRESSION: Mild bibasilar opacities which may represent atelectasis or infiltrate. Impression By: [email or web address] - Bon Spangler M.D. ULTRASOUND - DUP VEIN SCOTTY 03/04 0713 Report Impression - Status: SIGNED Entered: 03/04/2023 0805 IMPRESSION: No evidence of deep vein thrombosis. Impression By: [email or web address] - Ezekiel Esteves M.D. RADIOLOGY - XR CHEST 1 V 03/04 1822 Report Impression - Status: SIGNED Entered: 03/04/2023 193 IMPRESSION: 1. Lines and tubes are in satisfactory position. 2. St. Mild bibasilar atelectasis. ernal wires are seen Impression By: Jose Juan Schuler M.D. CAT SCAN - CT HEAD/BRAIN W/O CONT 03/04 1933 Report Impression - Status: SIGNED Entered: 03/04/2023 194 IMPRESSION: 1. No acute intracranial abnormality. 2. Chronic ischemic changes are present as described. 3. There is mild acute and chronic paranasal sinus disease. ASSESSMENT: ASPECTS ([place] Stroke Program Early CT Score) is 10. Impression By: Jose Juan Schuler M.D. 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 Free Text DxA P Notes Free Text DxA P Notes: 1- Severe COPD with exacerbation: As per Pulm 2- Recent pulmonary embolism on Eliquis 3- NSTEMI/Multivessel coronary artery disease: S/P CBBG, extubated and doing fair 5- Hypertension 6- History of tobacco use at 0649 RPT #:[id number] END OF REPORT [facility] 2023-03-05 02:33:00 [id number] [address] PATIENT NAME: TEVIN NYE ADMIT DATE: 03/03/23 ACCOUNT NO: [id number] ROOM NO: [facility] AGE: 72 REPORT TYPE: eELECTROCARDIOGRAM REPORT SEX: M ADMITTING PHYSICIAN:Luci Beyer MD ATTENDING PHYSICIAN:Luci Beyer MD Order: [id number] Test Reason : Cardiac Surgery Post Op Test Date/Time Stamp: FriMar 05 2023 02:33:51 Blood Pressure : / mmHG Vent. Rate : 086 BPM Atrial Rate : 086 BPM P-R Int : 144 ms QRS Dur : 090 ms QT Int : 356 ms P-R-T Axes : 056 -50 067 degrees QTc Int : 426 ms Normal sinus rhythm Left axis deviation Low voltage QRS Cannot rule out Anterior infarct (cited on or before 04-MAR-2023) Abnormal ECG When compared with ECG of 04-MAR-2023 18:25, Significant changes have occurred Confirmed by MD HIGINIO, ANUJ ([id number]) on 03/07/2023 1:32:56 PM Referred By: Self Referred Confirmed by:ANUJ SYLVESTER MD at 1332 PATIENT NAME: TEVIN NYE [facility] 2023-03-04 19:40:00 [facility] ([facility] Neurology Consultation Note REPORT#:[id number] REPORT STATUS: Signed DATE:03/04/23 TIME: 1939 PATIENT: TEVIN NYE UNIT #: [id number] ROOM/BED: 1 : 51 AGE: 72 SEX: M ATTEND: Luci Beyer MD ADM AUTHOR: Faraz Maldonado MD * ALL edits or amendments must be made on the electronic/computer document * See Addendum History of Present Illness HPI Requesting clinician: Dr. Beyer Reason for consult: code stroke Chief complaint: encephalopathy, non responsive PCP: PCP: No Primary or Family Physician HPI: Patient is a 72 yo male with HTN, DLD, DM, former smoker, prostate cancer s/p radiation, COPD, PE in November on eliqu who presented to an OSH with dyspnea on exertion and NSTEMI. Patient was vound to have multivessel CAD. Patient was transferred to [facility] for CABG evaluation. Preoperatively the patient was [...] been responsive post procedure. History - Adult longitudinal Past medical history: Reports: COPD, Diabetes mellitus, Hypertension, BPH, Dyslipidemia. Past surgical history: Reports: Knee procedure, Lung surgery (collapsed lung). Additional family history: UTO Alcohol use: Denies EtOH use Drug use: Denies recreational drugs Smoking status for patients 13 years old or older: Former Smoker Packs per day: 1 Years smoked: 20 Pack years: 20 Allergies: Coded Allergies: Penicillins (USE COMMENT BUTTON 03/03/23) PT STATES THAT HE WAS JUST TOLD THAT HE'S ALLERGIC TO PENICILLIN AND ITS NOT GONNA WORK FOR HIM Review of Systems Unable to obtain due to: intubated, comatose Objective General VS: Last Documented: Result Date Time FiO2 40 03/04 1801 Pulse Ox 100 03/04 1801 O2 Delivery Ventilator 03/04 1801 Pulse 82 03/04 1750 B/P 89/37 03/04 1750 Resp 18 03/04 1750 B/P Mean 81 03/04 1130 O2 Flow Rate 4 03/04 0836 Temp 36.3 03/04 0045 PATIENT WEIGHT: Weight (lb): 182 Weight (oz): 15.74 Weight (kg): 83.000 Medications Current Home Medications OXYBUTYNIN (DITROPAN) 5 MG PO BID TAMSULOSIN ER [...] DAILY Active Meds + DC'd Last 24 Hrs Ipratropium Idabel (ATROVENT) 500 MCG RTQ2H PRN PRN INH [...] Sodium Chloride (SODIUM CHLORIDE 0.9%) 250 ML Aspirin (ASPIRIN) 81 MG DAILY PO Hydrocortisone Sodium Succinate (Solu-CORTEF) 25 MG Q8HR IV (CAN) Amiodarone HCl (CORDARONE) 200 MG TID PO Docusate Sodium (COLACE) 100 MG BID PO Gabapentin (NEURONTIN) 200 MG BID PO Metoprolol Tartrate (LOPRESSOR) 12.5 MG Q12HR PO Sennosides (Senna Lax 8.6 MG TABLET) 17.2 MG BEDTIME PO Ipratropium Idabel (ATROVENT) 500 MCG RTQ4H INH Sugammadex Sodium [...] ASDIR IV Dextrose/Water (DEXTROSE 5% WATER) 246 ML Glucagon (GLUCAGON) 1 MG ASDIR PRN IM Insulin Human Regular (HumuLIN R) 100 UNIT ASDIR IV (CKD) Sodium Chloride (SODIUM CHLORIDE 0.9%) 99 ML Magnesium Sulfate (MAGNESIUM SULFATE 4GM/SWFI 100ML) 100 [...] (CAN) Sodium Chloride (SODIUM CHLORIDE 0.9%) 250 ML Albuterol Sulfate (VENTOLIN HFA) 0 .STK-MED ONE INH [...] 50 ML) 50 ML .STK-MED ONE IV ( DC) Sodium Chloride (SODIUM CHLORIDE 0.9%) 250 ML .STK-MED ONE IV (DC) Vancomycin HCl (Vancomycin 1,250 mg Inj (B2)) 0 .STK-MED ONE IV (DC) Insulin Human Lispro (HUMALOG) 0 AC HS SUBQ (DC) Rocuronium Idabel (ZEMURON) 0 .STK-MED ONE IV (DC) Fentanyl Citrate (SUBLIMAZE) 0 .STK-MED ONE .ROUTE (DC) Dexamethasone Sodium Phosphate (DECADRON) 0 .STK-MED ONE .ROUTE (DC) Heparin Sodium (HEPARIN SODIUM) 0 .STK-MED ONE .ROUTE (DC) Lidocaine HCl (XYLOCAINE) 0 .STK-MED ONE .ROUTE (DC) Ondansetron HCl (ZOFRAN) 0 .STK-MED ONE .ROUTE (DC) Rocuronium Idabel (ZEMURON) 0 .STK-MED ONE IV (DC) Fentanyl [...] (JESUS-SYNEPHRINE 10MG/ML AMP) 0 .STK-MED ONE .ROUTE (DC ) Sodium Bicarbonate (SODIUM BICARBONATE) 0 .STK-MED ONE IV (DC) Dexamethasone Sodium Phosphate (DECADRON) 0 .STK-MED ONE .ROUTE (DC) Etomidate (AMIDATE) 0 .STK-MED ONE IV (DC) Lidocaine HCl (XYLOCAINE) 0 .STK-MED ONE .ROUTE (DC) Ondansetron HCl (ZOFRAN) 0 .STK-MED ONE .ROUTE (DC) Rocuronium Idabel (ZEMURON) 0 .STK-MED ONE IV (DC) Succinylcholine Chloride (QUELICIN FLIPTOP) 0 .STK-MED ONE IV (DC) Epinephrine HCl (EPINEPHrine 4 mg/D5W 250 mL) 250 ML .STK-MED ONE IV (DC ) Heparin Sodium (HEPARIN SODIUM) 0 .STK-MED ONE [...] 50 ML) 50 ML PREOP ONCALL IV ( CKD) Metoprolol Tartrate (LOPRESSOR) 6.25 MG ONCE ONE PO (DC) Vancomycin HCl (Vancomycin 1,250 mg Inj (B2)) 1,250 MG PREOP ONCALL IV ( CKD) Sodium Chloride (SODIUM CHLORIDE 0.9%) 250 ML Verapamil HCl (ISOPTIN) 16.6 MG .Q24H ONE IV (CKD) Heparin Sodium (Porcine) (HEPARIN SODIUM) 1,660 UNIT Sodium Bicarbonate (SODIUM BICARBONATE) 0.7 ML Nitroglycerin/Dextrose (NITROGLYCERIN 50MG/D5W 250ML) 8.3 MG Lactated Ringer's (LACTATED RINGERS) 949.5 ML Iopamidol (ISOVUE-300 100ML) 100 ML .STK-MED ONE IV (DC) Budesonide (PULMICORT RESPULES) 0.5 MG RTBID INH Formoterol Fumarate (PERFOROMIST) 20 MCG RTBID NEB Doxycycline Hyclate (VIBRAMYCIN) 100 MG Q12HR IV Sodium Chloride (SODIUM CHLORIDE 0.9% 100 ML) 100 ML Guaifenesin (MUCINEX 600MG TAB SA) 600 MG Q12HR PO Ipratropium Idabel (ATROVENT) 500 MCG RTQ6H INH (DC) Mupirocin [...] 250ML) 250 ML ASDIR IV Dietitian nutrition assessment The data set between the solid lines has been imported from the dietitian's assessment. BMI Calculated: 28.7 Nutrition related diagnosis: Nutrition diagnosis details: Nutrition problem: Nutrition etiology: Nutrition signs and symptoms: Nutrition prescription: Dietitian name: Assessment completed: Results Findings/Data: Laboratory Tests 03/04 03/04 03/04 03/04 1907 1758 1733 1636 Blood Gas Puncture Site Art Line Art [...] 4.0 -8.2 L -6.5 L -4.4 L -1.5 MMOL/L) ABG Hematocrit (37.5 - 50.7 %) 23 [...] (1.12 - 1.32 1.21 1.21 1.22 1.08 L MMOL/L) Lactic Acid (0.9 - 1.7 mmol/l) 3.9 [...] 03/04 03/04 03/04 1907 1758 1743 1733 1636 Chemistry Sodium (134 - 147 mEq/L) 143 [...] 03/04 03/03 03/03 03/03 0354 2037 7 7 Chemistry Sodium (134 - 147 mEq/L) 140 [...] INR (0.8 - 1.2) 1.5 H PTT (Perry) (25.0 - 39.5 Seconds) 30.8 PT Patient/Control Mix (9.3 - 12.9 SECONDS) 16.4 H Activated Coag Time (74 - 137 SEC) 149 H 630 H 756 H 03/04 03/04 03/04 03/04 1539 1508 1230 0235 Coagulation PTT (Perry) (25.0 - 39.5 Seconds) 80.6 H Activated Coag Time (74 - 137 SEC) 967 H 834 H 179 H 03/037 Coagulation INR (0.8 - 1.2) 1.3 H PTT (Perry) (25.0 - 39.5 Seconds) 39.0 PT Patient/Control [...] %) 6.5 L 5.0 L 6.4 L Grainger % (Auto) (4.8 - 9.0 %) 8.1 2.8 L 7.8 Eos % (Auto) (0.3 - 3.7 %) 0.2 L 0.2 L 1.0 Baso % (Auto) (0.0 - 2.0 %) 0.1 0.2 0.4 Neut # (Auto) (2.0 - 7.6 x10 3/uL) 7.61 H 4.95 4.18 Lymph # (Auto) (1.0 - 3.8 x10 3/uL) 0.59 L 0.27 L 0.32 L Grainger # (Auto) (0.1 - 0.8 x10 3/uL) [...] pH (5.0 - 7.0) 5.0 Ur Specific [place] (1.005 - 1.030) 1.043 H Urine Protein [...] Urine Mucus (NONE SEEN /LPF) TRACE Radiology Data: Recent Impressions: CAT SCAN - CT ANGIO CHEST 03/03 2342 [...] in 3 months. Impression By: Ramón Roman M.D. ULTRASOUND - DUP EXTRACRANIAL SCOTTY 03/03 2350 Report [...] no detectable patent lumen. Impression By: [email or web address] Og Roman M.D. ULTRASOUND - DUP VEIN SCOTTY 03/04 0021 Report Impression - Status: SIGNED Entered: 03/04/2023 0206 IMPRESSION: Greater saphenous veins are patent. Vein mapping as described. Impression By: [email or web address] - Morales Villegas M.D. RADIOLOGY - XR CHEST 1 V 03/04 0651 Report Impression - Status: SIGNED Entered: 03/04/2023 0807 IMPRESSION: Mild bibasilar opacities which may represent atelectasis or infiltrate. Impression By: [email or web address] - Bon Spangler M.D. ULTRASOUND - DUP VEIN SCOTTY 03/04 0713 Report Impression - Status: SIGNED Entered: 03/04/2023 0805 IMPRESSION: No evidence of deep vein thrombosis. Impression By: [email or web address] - Ezekiel Esteves M.D. RADIOLOGY - XR CHEST 1 V 03/04 182 Report Impression - Status: SIGNED Entered: 03/04/2023 193 IMPRESSION: 1. Lines and tubes are in satisfactory position. 2. St. Mild bibasilar atelectasis. ernal wires are seen Impression By: Jose Juan Schuler M.D. CAT SCAN - CT HEAD/BRAIN W/O CONT 03/04 1933 Report Impression - Status: SIGNED Entered: 03/04/20231939 IMPRESSION: 1. No acute intracranial abnormality. 2. Chronic ischemic changes are present as described. 3. There is mild acute and chronic paranasal sinus disease. ASSESSMENT: ASPECTS ([place] Stroke Program Early CT Score) is 10. Impression By: Jose Juan Schuler M.D. Free Text Obj Notes Free Text Obj Notes: General: intubated HEENT: anicteric, NCAT, ETT in palce CV: RRR Pulm: symmetric expansion, mechanically ventilated Abdomen: distended, soft, no grimace to palpation Ext: no rash Neuro Mental status: E1M1V1 but improved to E4M6Vt Speech: initially non responsive to command ,later following midline and appendicular commands CN: Pupils 4mm and sluggish, improved to 3 and brisk. OCR very sluggish, restricted; later intact to command corneal - no blink but initiation of a Borges's phenomenon BL Cough absent initially, later present spontaneously Motor: initially without motor response to central or peripheral noxious stimulus later with at least 4/5 strength throughout all 4 ext Hyporeflexic Plantar response mute Train of four 1/4 on initial assessment Scores - Neuro NIH Stroke Scale NIHSS applicable: Yes NIHSS NIHSS Response Value Level of consciousness: Postures/unresponsive [...] Diagnosis, Assessment Plan Free Text DxA P Notes Free text DxA P notes: Patient is a 72 yo male with CAD s/p CABG today as well as severe carotid artery stenosis on the left for whom a code stroke was called due to fixed pupils after receiving narcan. Ceribell shows diffuse slowing without epileptiform activity. CTH was grossly unremarkable with no ICH, early ischemic changes and there were no hyperdense vessels noted. Discussed with Dr. Sheehan after train of four was only 1 of 4 and suggamadex was given following which the patient began to follow commands. - continue q1h neurochecks - given improvement you can defer CTA H N - maintain SBP 110-180mmHg from neuro standpoint but will defer to cv surgery and ICC. - exam improved with NM blockade reversal - ceribell reviewed at bedside and can be removed - Please contact neurology with any change in exam. at 0090 Addendum 1: 03/06/23 1020 by Faraz Maldonado MD Patient was not a TNK candidate given his major surgery within the last 2 weeks. at 1021 RPT #:[id number] END OF REPORT [facility] 2023-03-04 18:25:00 [id number] [address] PATIENT NAME: TEVIN NYE ADMIT DATE: 03/03/23 ACCOUNT NO: [id number] ROOM NO: [facility] AGE: 72 REPORT TYPE: eELECTROCARDIOGRAM REPORT SEX: M ADMITTING PHYSICIAN:Luci Beyer MD ATTENDING PHYSICIAN:Luci Beyer MD Order: [id number] Test Reason : Cardiac Surgery Post Op Test Date/Time Stamp: FriMar 04 2023 18:25:45 Blood Pressure : / mmHG Vent. Rate : 085 BPM Atrial Rate : 085 BPM P-R Int : 200 ms QRS Dur : 100 ms QT Int : 362 ms P-R-T Axes : 069 -69 106 degrees QTc Int : 430 ms Normal sinus rhythm Left axis deviation Low voltage QRS Abnormal ECG When compared with ECG of 04-MAR-2023 07:07, No changes Confirmed by MD SYLVESTER GERARD ([id number]) on 03/06/2023 6:01:53 PM Referred By: Self Referred Confirmed by:ANUJ SYLVESTER MD at 1801 PATIENT NAME: TEVIN NYE [facility] 2023-03-04 18:21:00 [facility]) Critical Care Consult Note REPORT#:[id number] REPORT STATUS: Signed DATE:03/04/23 TIME: 1820 PATIENT: TEVIN NYE UNIT #: [id number] ROOM/BED: [place] [address] : 51 AGE: 72 SEX: M ATTEND: Luci Beyer MD ADM AUTHOR: Noé Madrid MD * ALL edits or amendments must be made on the electronic/computer document * History of Present Illness HPI Requesting clinician: Dr Mars Beyer Reason for consult: Chest pain Wheezing Dyspnea Multivessel coronary artery disease Non-ST elevation UT Status post CABG x5 and ILAA Elective ventilator dependence Acute pulmonary insufficiency following major cardiothoracic surgery Acute blood loss anemia Metabolic acidosis Lactic acidosis Hypokalemia Hyperglycemia Chronic steroid dependence Severe left carotid stenosis History of severe COPD Chief complaint: Dyspnea Wheezing Chest pain/Unstable angina PCP: PCP: No Primary or Family Physician HPI: Tevin [...] isolation of left atrial appendage. He came out of the OR with norepinephrine at 4 mcg [...] dose was at 3:15 PM. Patient was given hydrocortisone 100 mg IV at 2:45 PM for chronic steroid dependence. He is currently on assist-control at 18 tidal volume 480 PEEP of 5 and 50% FiO2 and is moving tidal volumes at 470+. Vital signs are stable with heart rate 82 sinus rhythm, blood pressure 95/41 mmHg, pulse ox 100% while on 50% FiO2 and respiratory rate is 14. Chest tube output is minimal at 3 mm each. Patient was ordered albumin 25% to 50 mL. Pupils are bilaterally symmetrical and reactive to light measuring 3 mm on each side. Lab work upon arrival in the CVICU room # [id number] revealed a potassium of 3.3, glucose 230, creatinine 1.46 mg/dL, hemoglobin of 6.9 g/dL and hematocrit of 20%. Tevin Gonzalez is a 72 y.o. male with PMH of hypertension, dyslipidemia, diabetes, former smoker (quit 2008), BPH, prostate CA s/p radiation, COPD (uses inhaler at home, no home oxygen), and PE (November 2022 on eliquis) who presented to [facility] with chest pain, dyspnea on exertion, and NSTEMI. Coronary angiogram was done and revealed severe multivessel coronary artery disease. Patient was then transferred to [facility] for CV surgery evaluation and need for [...] atrial appendage on 03/04/2023. History - Adult longitudinal Past medical history: Reports: COPD, Diabetes mellitus, Hypertension, BPH, Dyslipidemia. Past surgical history: Reports: Knee procedure, Lung surgery (collapsed lung). Alcohol use: Denies EtOH use Drug use: Denies recreational drugs Smoking status for patients 13 years old or older: Former Smoker Packs per day: 1 Years smoked: 20 Pack years: 20 Medications: Home Medications: Medication Dose/Rte/Freq Days Qty Entered Last Max Daily Dose Reviewed OXYBUTYNIN (DITROPAN) 5 MG PO BID 03/03/23 03/03/23 Strength: 5 MG TAB 1937 1948 TAMSULOSIN ER (FLOMAX) 0.8 MG PO DAILY 03/03/23 03/03/23 Strength: 0.4 MG CAP.SR.24H 1938 1948 FLUoxetine (PROzac) 10 MG PO QAM 03/03/23 03/03/23 Strength: 10 MG CAP 1938 1948 LATANOPROST 1 DROP EACH EYE 03/03/23 03/03/23 (XALATAN 0.005% OPHTH BEDTIME 1939 1948 SOLN) Strength: 0.005 % OPHTH.SOLN LISINOPRIL (ZESTRIL) 20 MG PO DAILY 03/03/23 03/03/23 Strength: 20 MG TAB 1939 1948 METOPROLOL TARTRATE 25 MG PO BID 03/03/23 03/03/23 (LOPRESSOR) 1940 1948 Strength: 50 MG TAB INSULIN LISPRO 6 03/03/23 03/03/23 (HumaLOG KWIKPEN (3mL)) 1942 1948 Strength: 100 UNIT/ML INSULN.PEN INSULIN LISPRO (HumaLOG) 50 03/03/23 03/03/23 Strength: 100 UNIT/ML VIAL 1943 1948 CALCIUM CARBONATE/VIT 2 TAB PO DAILY 03/03/23 03/03/23 D3 1944 1948 (CALCIUM CARB/VIT D3 500 MG/200 UNITS) Strength: 500 MG CALCIUM-5 MCG (200 UNIT) TAB CYANOCOBALAMIN 100 MCG PO DAILY 03/03/23 03/03/23 (VITAMIN B-12) 1944 1948 Strength: 100 MCG TAB HYDROCHLOROTHIAZIDE 25 MG PO DAILY 03/03/23 03/03/23 (HYDRODIURIL) 1945 1948 Strength: 25 MG TAB APIXABAN (ELIQUIS) 5 MG PO BID 03/03/23 03/03/23 Strength: 5 MG TAB 1946 1948 ASPIRIN 81 MG PO DAILY 03/03/23 03/03/23 Strength: 81 MG TAB.CHEW 1946 1948 ATORVASTATIN (LIPITOR) 5 MG PO DAILY 03/03/23 03/03/23 Strength: 10 MG TAB 1947 1948 Current Hospital Medications: Anti-Infective Agents Sig/Yas Start time Last Medication Dose [...] 03/04 0500 CKD (Vancomycin 1,250 mg IV 03/049 Inj (B2)) Sodium Chloride 250 ML (SODIUM CHLORIDE 0.9%) Doxycycline Hyclate 100 MG Q12HR 03/03 2100 AC 03/04 (VIBRAMYCIN) IV 03/08 2059 0954 Sodium Chloride 100 ML (SODIUM CHLORIDE 0.9% 100 ML) Autonomic Drugs Sig/Yas Start time Last Medication Dose Route Stop Time Status Admin Ipratropium Idabel 500 MCG RTQ2H PRN PRN 03/07 1655 AC (ATROVENT) INH 04/06 1654 Ipratropium Idabel 500 MCG RTQ4H 03/04 2000 AC (ATROVENT) INH 03/07 1655 Epinephrine 4 MG ASDIR 03/04 1700 AC (ADRENALIN CHLORIDE) IV 04/03 165 Dextrose/Water 246 ML (DEXTROSE 5% WATER) Norepinephrine 250 ML TITRATE 03/04 1700 AC Bitartrate IV 04/03 1659 (NOREPINEPHRINE 8 MG/ NS 250 ML) Albuterol Sulfate 0 .STK-MED ONE 03/04 1511 DC (VENTOLIN HFA) INH Glycopyrrolate 0 .STK-MED ONE 03/04 1307 DC (GLYCOPYRROLATE) .ROUTE Neostigmine 0 .STK-MED ONE 03/04 1307 DC Methylsulfate .ROUTE (PROSTIGMIN) Rocuronium Idabel 0 .STK-MED ONE 03/04 1019 DC (ZEMURON) IV Rocuronium Idabel 0 .STK-MED ONE 03/04 0754 DC (ZEMURON) IV Phenylephrine HCl 0 .STK-MED ONE 03/04 0736 DC (JESUS-SYNEPHRINE 10MG/ .ROUTE ML AMP) Rocuronium Idabel 0 .STK-MED ONE 03/04 0731 DC (ZEMURON) IV Succinylcholine 0 .STK-MED ONE 03/04 0731 DC Chloride IV (QUELICIN FLIPTOP) Epinephrine HCl 250 ML .STK-MED ONE 03/04 0728 DC (EPINEPHrine 4 mg/ IV D5W 250 mL) Norepinephrine 250 ML .STK-MED ONE 03/04 0728 DC Bitartrate IV (NOREPINEPHRINE 8 MG/ NS 250 ML) Formoterol Fumarate 20 MCG RTBID 03/03 2200 AC 03/03 (PERFOROMIST) NEB 04/02 Ipratropium Idabel 500 MCG RTQ6H 03/03 2100 DC 03/04 (ATROVENT) INH 04/02 2059 0836 Albuterol Sulfate 2.5 MG RTONCE ONE 03/03 2000 DC 03/03 (ALBUTEROL SULFATE) NEB 03/03 Blood Derivatives Sig/Yas Start time Last Medication Dose Route Stop Time Status Admin Albumin Human 25 GM ASDIR PRN 03/04 1700 AC (ALBUMINAR 25%) IV 03/05 1655 Albumin Human 100 ML .STK-MED ONE 03/04 1211 DC (ALBUMINAR-25%) IV Albumin Human 50 ML .STK-MED ONE 03/04 0737 DC (ALBUMINAR-25%) IV Blood Formation,Coagulation Sig/Yas Start [...] .ROUTE Heparin Sodium 0 .STK-MED ONE 03/04 0737 DC (HEPARIN SODIUM) .ROUTE Heparin Sodium 0 .STK-MED ONE 03/04 0728 DC (HEPARIN SODIUM) .ROUTE Aminocaproic Acid [...] 04/03 2059 Nitroglycerin/ 250 ML ASDIR 03/04 1700 AC Dextrose IV 04/03 1659 (NITROGLYCERIN 50,000MCG/D5W 250ML) Papaverine HCl 0 .STK-MED ONE 03/04 1224 DC (PAPAVERINE HCL) IV Lidocaine HCl 0 .STK-MED ONE 03/04 0754 DC (XYLOCAINE) .ROUTE Lidocaine HCl 0 .STK-MED ONE 03/04 0736 DC (XYLOCAINE IV) IV Lidocaine HCl 0 .STK-MED ONE 03/04 0731 DC (XYLOCAINE) .ROUTE Nitroglycerin/ 250 ML .STK-MED ONE 03/04 0727 DC Dextrose IV (NITROGLYCERIN 50,000MCG/D5W 250ML) Metoprolol [...] PRN 03/04 1700 AC (TYLENOL) PO 04/03 1659 Acetaminophen 650 MG Q4H PRN PRN 03/04 [...] 03/03 2000 DC 03/04 (NEURONTIN) PO 04/02 2359 0434 Diagnostic Agents Sig/Yas Start time Last Medication Dose Route Stop Time Status Admin Iopamidol 100 ML .STK-MED ONE 03/03 2343 DC 03/03 (ISOVUE-300 100ML) IV 03/03 2344 2343 Electrolytic, Caloric, And Agata Sig/Yas Start time Last Medication Dose Route Stop Time Status Admin Calcium Chloride 1 GM ASDIR PRN 03/04 1700 AC (CALCIUM CHLORIDE) IV 04/03 1659 Dextrose/Water 125 ML ASDIR PRN 03/04 1700 CKD (DEXTROSE 10% IN IV 04/03 1659 WATER) Dextrose/Water 250 ML ASDIR PRN 03/04 1700 CKD (DEXTROSE 10% IN IV 04/03 1659 WATER) Potassium Chloride 100 ML ASDIR PRN 03/04 1700 AC (KCL 20MEQ/SWFI IV 04/03 1659 100ML) Sodium Bicarbonate 50 MEQ ASDIR PRN 03/04 1700 AC (SODIUM BICARBONATE) IV 04/03 1659 Sodium Chloride 1,000 ML .Q20H 03/04 1700 AC (SODIUM CHLORIDE IV 04/03 1659 0.9%) Sodium Chloride 250 ML Q24H 03/04 1700 AC (SODIUM CHLORIDE IV 04/03 1659 0.9%) Parenteral 1,000 ML .STK-MED ONE 03/04 1250 DC Electrolytes IV (PLASMA-LYTE [...] IV Calcium Chloride 0 .STK-MED ONE 03/04 727 DC (CALCIUM CHLORIDE) IV Sodium Chloride 100 ML .STK-MED ONE 03/04 727 DC (SODIUM CHLORIDE IV 0.9%) Eye, Ear, Nose And Throat (Een Sig/Yas Start time Last Medication Dose Route Stop Time Status Admin Dexamethasone Sodium 0 .STK-MED ONE 03/04 0754 DC Phosphate .ROUTE (DECADRON) Dexamethasone Sodium 0 .STK-MED ONE 03/04 07 DC Phosphate .ROUTE (DECADRON) Budesonide 0.5 MG [...] PRN 03/04 1700 AC (ZOFRAN) IV 04/03 165 Ondansetron HCl 0 .STK-MED ONE 03/04 0754 DC (ZOFRAN) .ROUTE Ondansetron HCl 0 .STK-MED ONE 03/04 07 DC (ZOFRAN) .ROUTE Hormones And Synthetic Substit Sig/Yas Start time Last Medication Dose Route Stop Time Status Admin Hydrocortisone 25 MG Q8HR 03/04 2200 PEND Sodium Succinate IV 04/03 2159 (Solu-CORTEF) Glucagon 1 MG ASDIR PRN 03/04 1700 AC (GLUCAGON) IM 04/03 1659 Insulin Human Regular 100 UNIT ASDIR 03/04 1700 CKD (HumuLIN R) IV 04/03 165 Sodium Chloride 99 ML (SODIUM CHLORIDE 0.9%) [...] (Solu-Medrol 40 MG Vial) Local Anesthetics (Parenteral) Sig/Yas Start time Last Medication Dose Route Stop Time Status Admin Ropivacaine 0 .STK-MED ONE 03/04 727 DC (NAROPIN 0.5% 150 MG/ .ROUTE 30mL) [...] (MUCINEX 600MG TAB PO 04/02 2059 0953 ) Skin And Mucous Membrane Agent Sig/Yas Start time Last Medication Dose Route Stop Time Status Admin Mupirocin 1 APPLIC BID 03/03 2100 AC 03/04 (BACTROBAN 2% 22 GM NASAL 03/08 0901 0953 OINTMENT) Vitamins Sig/Yas Start time Last Medication Dose Route Stop Time Status Admin Cyanocobalamin 500 MCG DAILY 03/07 0900 AC (Vitamin B-12 500 PO 04/06 0859 mcg tab) Allergies: Coded Allergies: Penicillins (USE COMMENT BUTTON 03/03/23) PT STATES THAT HE WAS JUST TOLD THAT HE'S ALLERGIC TO PENICILLIN AND ITS NOT GONNA WORK FOR HIM Review of Systems ROS Unable to obtain due to: Patient is orally intubated on the ventilator after major cardiothoracic surgery. He underwent CABG x5 along with isolation of left atrial appendage. Patient has been on chronic steroid therapy and required hydrocortisone 100 mg IV intraoperatively for a renal cortical support. Has acute blood loss anemia with hemoglobin of 6.9 g/dL and 2 units of packed red cells have been ordered. Objective Physical Exam VS/I O: Last Documented: Result Date Time FiO2 40 03/04 [...] and BMI Weight (kg): 83.000 BMI: 28.7 Medications: Active Meds + DC'd Last 24 Hrs Ipratropium Idabel (ATROVENT) 500 MCG RTQ2H PRN PRN INH [...] MG TABLET) 17.2 MG BEDTIME PO Ipratropium Idabel (ATROVENT) 500 MCG RTQ4H INH Perflutren Protein [...] ASDIR IV Dextrose/Water (DEXTROSE 5% WATER) 246 ML Glucagon (GLUCAGON) 1 MG ASDIR PRN IM Insulin Human Regular (HumuLIN R) 100 UNIT ASDIR IV (CKD) Sodium Chloride (SODIUM CHLORIDE 0.9%) 99 ML Magnesium Sulfate (MAGNESIUM SULFATE 4GM/SWFI 100ML) 100 [...] (PEND) Sodium Chloride (SODIUM CHLORIDE 0.9%) 250 ML Albuterol Sulfate (VENTOLIN HFA) 0 .STK-MED ONE INH [...] 50 ML) 50 ML .STK-MED ONE IV ( DC) Sodium Chloride (SODIUM CHLORIDE 0.9%) 250 ML .STK-MED ONE IV (DC) Vancomycin HCl (Vancomycin 1,250 mg Inj (B2)) 0 .STK-MED ONE IV (DC) Insulin Human Lispro (HUMALOG) 0 AC HS SUBQ (DC) Rocuronium Idabel (ZEMURON) 0 .STK-MED ONE IV (DC) Fentanyl Citrate (SUBLIMAZE) 0 .STK-MED ONE .ROUTE (DC) Dexamethasone Sodium Phosphate (DECADRON) 0 .STK-MED ONE .ROUTE (DC) Heparin Sodium (HEPARIN SODIUM) 0 .STK-MED ONE .ROUTE (DC) Lidocaine HCl (XYLOCAINE) 0 .STK-MED ONE .ROUTE (DC) Ondansetron HCl (ZOFRAN) 0 .STK-MED ONE .ROUTE (DC) Rocuronium Idabel (ZEMURON) 0 .STK-MED ONE IV (DC) Fentanyl [...] (JESUS-SYNEPHRINE 10MG/ML AMP) 0 .STK-MED ONE .ROUTE (DC ) Sodium Bicarbonate (SODIUM BICARBONATE) 0 .STK-MED ONE IV (DC) Dexamethasone Sodium Phosphate (DECADRON) 0 .STK-MED ONE .ROUTE (DC) Etomidate (AMIDATE) 0 .STK-MED ONE IV (DC) Lidocaine HCl (XYLOCAINE) 0 .STK-MED ONE .ROUTE (DC) Ondansetron HCl (ZOFRAN) 0 .STK-MED ONE .ROUTE (DC) Rocuronium Idabel (ZEMURON) 0 .STK-MED ONE IV (DC) Succinylcholine Chloride (QUELICIN FLIPTOP) 0 .STK-MED ONE IV (DC) Epinephrine HCl (EPINEPHrine 4 mg/D5W 250 mL) 250 ML .STK-MED ONE IV (DC ) Heparin Sodium (HEPARIN SODIUM) 0 .STK-MED ONE [...] 50 ML) 50 ML PREOP ONCALL IV ( CKD) Metoprolol Tartrate (LOPRESSOR) 6.25 MG ONCE ONE PO (DC) Vancomycin HCl (Vancomycin 1,250 mg Inj (B2)) 1,250 MG PREOP ONCALL IV ( CKD) Sodium Chloride (SODIUM CHLORIDE 0.9%) 250 ML Verapamil HCl (ISOPTIN) 16.6 MG .Q24H ONE IV (CKD) Heparin Sodium (Porcine) (HEPARIN SODIUM) 1,660 UNIT Sodium Bicarbonate (SODIUM BICARBONATE) 0.7 ML Nitroglycerin/Dextrose (NITROGLYCERIN 50MG/D5W 250ML) 8.3 MG Lactated Ringer's (LACTATED RINGERS) 949.5 ML Iopamidol (ISOVUE-300 100ML) 100 ML .STK-MED ONE IV (DC) Budesonide (PULMICORT RESPULES) 0.5 MG RTBID INH Formoterol Fumarate (PERFOROMIST) 20 MCG RTBID NEB Doxycycline Hyclate (VIBRAMYCIN) 100 MG Q12HR IV Sodium Chloride (SODIUM CHLORIDE 0.9% 100 ML) 100 ML Guaifenesin (MUCINEX 600MG TAB SA) 600 MG Q12HR PO Ipratropium Idabel (ATROVENT) 500 MCG RTQ6H INH (DC) Mupirocin [...] respiratory support, no acute distress, no respiratory distress Head/Eyes: EOMI, PERRL Cardiovascular: normal capillary refill, normal heart sounds, regular rate and rhythm, normal S1/S2 Respiratory: aerating well, clear to auscultation, symmetric expansion Abdomen: soft, non-tender Genitourinary: urinary catheter, no bladder distention Extremities: no clubbing, no cyanosis, no edema Skin: abnormal temperature, dry, no rash Psychiatry: unable to evaluate Results Findings/Data: Laboratory Tests 03/04/23 1743: [Embedded Image Not Available] 03/04/23 0354: [Embedded Image Not Available] 03/04/23 0235: [Embedded Image Not Available] 03/03/232036: [Embedded Image Not Available] Laboratory Tests 03/04 03/04 03/04 03/04 1758 1733 1636 1609 Blood Gas Puncture Site Art Line O2 [...] 03/04 03/04 03/04 1537 1506 1228 0726 0354 Chemistry Sodium (134 - 147 mEq/L) 140 [...] 03/04 03/04 03/04 1743 1731 1637 1611 1539 Coagulation INR (0.8 - 1.2) 1.5 H PTT (Jarrett) (25.0 - 39.5 Seconds) 30.8 PT Patient/Control Mix (9.3 - 12.9 16.4 H SECONDS) Activated Coag Time (74 - 137 SEC) 149 H 630 H 756 H 967 H 03/04 03/04 03/04 03/03 1508 1230 0235 2037 Coagulation INR (0.8 - 1.2) 1.3 H PTT (Perry) (25.0 - 39.5 Seconds) 80.6 H 39.0 [...] %) 6.5 L 5.0 L 6.4 L Grainger % (Auto) (4.8 - 9.0 %) 8.1 2.8 L 7.8 Eos % (Auto) (0.3 - 3.7 %) 0.2 L 0.2 L 1.0 Baso % (Auto) (0.0 - 2.0 %) 0.1 0.2 0.4 Neut # (Auto) (2.0 - 7.6 x10 3/uL) 7.61 H 4.95 4.18 Lymph # (Auto) (1.0 - 3.8 x10 3/uL) 0.59 L 0.27 L 0.32 L Grainger # (Auto) (0.1 - 0.8 x10 3/uL) [...] pH (5.0 - 7.0) 5.0 Ur Specific [place] (1.005 - 1.030) 1.043 H Urine Protein [...] SEEN Urine Mucus (NONE SEEN /LPF) TRACE Microbiology: 03/03 1952 NASAL: MSSA Surveillance Screen - COMP 03/03 1952 NASAL: MRSA DNA Surveillance Screen - COMP Radiology data: Recent Impressions: CAT SCAN - CT ANGIO CHEST 03/03 2342 [...] in 3 months. Impression By: Ramón Roman M.D. ULTRASOUND - DUP EXTRACRANIAL SCOTTY 03/03 2350 Report [...] detectable patent lumen. Impression By: Ramón Roman M.D. ULTRASOUND - DUP VEIN SCOTTY 03/04 0021 Report Impression - Status: SIGNED Entered: 03/04/2023 0206 IMPRESSION: Greater saphenous veins are patent. Vein mapping as described. Impression By: [email or web address] - Morales Villegas M.D. RADIOLOGY - XR CHEST 1 V 03/04 0651 Report Impression - Status: SIGNED Entered: 03/04/2023 0807 IMPRESSION: Mild bibasilar opacities which may represent atelectasis or infiltrate. Impression By: [email or web address] - Bon Spangler M.D. ULTRASOUND - DUP VEIN SCOTTY 03/04 0713 Report Impression - Status: SIGNED Entered: 03/04/2023 0805 IMPRESSION: No evidence of deep vein thrombosis. Impression By: [email or web address] - Ezekiel Esteves M.D. Results: labs reviewed, vital signs reviewed, rhythm personally rev'd, x-ray personally reviewed, current med profile rev'd Diagnosis, Assessment Plan 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 Plan discussed with: consultants, nurse, interdisc care team Critical care time: Minutes: 55 Code Status/Resusc. Discussion Resuscitation discussion: Discussed with: patient, family Code status: full code Free text DxA P: Problem List: Chest pain Wheezing Dyspnea Multivessel coronary artery disease Non-ST elevation UT Status post CABG x5 and ILAA Elective ventilator dependence Acute pulmonary insufficiency following major cardiothoracic surgery Acute blood loss anemia Metabolic acidosis Lactic acidosis Hypokalemia Hyperglycemia Chronic steroid dependence Severe left carotid stenosis History of severe COPD Assessment and Plan: Tevin [...] isolation of left atrial appendage. He came out of the OR with norepinephrine at 4 mcg [...] dose was at 3:15 PM. Patient was given hydrocortisone 100 mg IV at 2:45 PM for chronic steroid dependence. He is currently on assist-control at 18 tidal volume 480 PEEP of 5 and 50% FiO2 and is moving tidal volumes at 470+. Vital signs are stable with heart rate 82 sinus rhythm, blood pressure 95/41 mmHg, pulse ox 100% while on 50% FiO2 and respiratory rate is 14. Chest tube output is minimal at 3 mm each. Patient was ordered albumin 25% to 50 mL. Pupils are bilaterally symmetrical and reactive to light measuring 3 mm on each side. Lab work upon arrival in the CVICU room # 2201 revealed a potassium of 3.3, glucose 230, creatinine 1.46 mg/dL, hemoglobin of 6.9 g/dL and hematocrit of 20%. Tevin Gonzalez is a 72 y.o. male with PMH of hypertension, dyslipidemia, diabetes, former smoker (quit 2008), BPH, prostate CA s/p radiation, COPD (uses inhaler at home, no home oxygen), and PE (November 2022 on eliquis) who presented to [facility] with chest pain, dyspnea on exertion, and NSTEMI. Coronary angiogram was done and revealed severe multivessel coronary artery disease. Patient was then transferred to [facility] for CV surgery evaluation and need for [...] postop day 0 after CABG x5 and ILAA Has severe left carotid stenosis Optimize systolic blood pressure to greater than 130 mmHg Patient was on chronic steroid therapy with Solu-Medrol Adrenal cortical support with hydrocortisone 25 mg IV every 8 hours Has acute blood loss anemia with a hemoglobin of 6.9 g/dL Transfuse 2 units of packed red cells Patient received Hydrocortisone 100 mg IV at 2:45 PM Start on Hydrocortisone 25 mg every 8 hours Also received parasternal block Currently on assist-control at 18 tidal volume 480 PEEP of 5 and 50% FiO2 Latest blood gas shows a pH of 7.28, pCO2 of 43 mmHg, pO2 of 175 mmHg and bicarbonate of 20 mmol with base excess at -6.5 Patient has been ordered 1 amp of sodium bicarbonate Recheck ABGs in 1 hour Chest tube output is minimal at 3 mL in both left pleural and mediastinal chest tube Blood pressure is low upon arrival at 95/41 mm of Hg Optimize blood pressure with Norepinephrine, titrate to a map of 70 or greater Avoid sedation Monitor chest tube output Pupils are bilaterally symmetrical and reactive to light measuring 3 mm on each side Replete potassium, check magnesium and ionized calcium Follow BMP Glycemic control with insulin drip, latest blood glucose is 230 mg/dL SCDs for DVT prophylaxis Noé Madrid MD [facility] 03/04/2023 6.32 PM at 1836 RPT #:[id number] END OF REPORT [facility] 2023-03-04 17:30:00 [id number] [place] [address] PATIENT NAME: TEVIN NYE ADMIT DATE: 03/03/23 ACCOUNT NO: [id number] ROOM NO: [facility] AGE: 72 REPORT TYPE: OPERATIVE REPORT SEX: M ADMITTING PHYSICIAN:Luci Beyer MD ATTENDING PHYSICIAN:Luci Beyer MD OPERATION DATE: 03/04/2023 PREOPERATIVE DIAGNOSES: 1. Coronary artery disease. 2. Chronic obstructive pulmonary disease. POSTOPERATIVE DIAGNOSES: 1. Coronary artery disease. 2. Chronic obstructive pulmonary disease. PROCEDURES: 1. Coronary artery bypass graft surgery x4 (MCCORMICK to LAD, saphenous vein to diagonal, saphenous vein to marginal, saphenous vein to PDA). 2. Amputation of left atrial appendage. 3. Endoscopic vein harvest (right greater saphenous vein). 4. Posterior pericardiotomy. SURGEON: Luci Beyer M.D. CIRCUIT BOARD ASSEMBLER: Samuel Mcguire. ANESTHESIOLOGIST: Dr. Diallo. ANESTHESIA: General endotracheal anesthesia. ESTIMATED BLOOD LOSS: 100 mL INDICATIONS: Mr. Nye is a 72-year-old gentleman with severe triple-vessel coronary artery disease and pxdkkren-yb-[id number] COPD. After due preop counseling, he was brought to the operating room today for surgical revascularization. FINDINGS: 1. Vein was harvested from the left leg using endoscopic vein harvest technique. Vein was of marginal quality, measuring about 4-5 mm in size. 2. Osteoporotic sternum. 3. Good quality MCCORMICK measuring 2 mm in size with excellent flow. 4. Normal pericardium without any intrapericardial adhesion, minimal intrapericardial fluid. 5. LAD 2 mm, slightly diseased artery. 6. Diagonal 2 mm, good quality artery. 7. Marginal 2 mm, good quality artery. 8. PDA 2 mm, good quality artery. PATIENT NAME: TEVIN NYE 9. Left atrial appendage was amputated half a cm from the base. This was then repaired with two layers of running pledgeted 4-0 Prolene suture. 10. Posterior pericardiotomy was performed by excising 2 cm segment of the posterior pericardium. DESCRIPTION OF PROCEDURE: Mr. Nye was identified in the preoperative holding area and brought to the operating room and placed supine on the operating table. After induction of general endotracheal anesthesia, Valencia catheter, radial arterial line, antibiotics were placed. The patient's anterior torso and both legs were then prepped and draped in standard surgical fashion. Vein was harvested from the left leg using endoscopic vein harvest technique. Following harvesting of vein, subcutaneous tissue was closed with 2-0 Vicryl and skin with 4-0 Vicryl. Simultaneously, median sternotomy was performed. The left internal mammary artery was harvested. The patient was heparinized. Pericardium was opened longitudinally. Pericardial well was created. Cardiopulmonary bypass was instituted using ascending aorta and 3-stage cannula in the right atrium. The patient was cooled to 34 degrees centigrade. Crossclamp was applied and the heart was arrested with 1.5 liters antegrade cold blood cardioplegia. Cardioplegia was repeated at interval of 10 minutes all through the duration of crossclamp. We began by exploring the PDA. This was good quality artery measuring 2 mm in size. Arteriotomy was performed with [place] and extended with Ruiz scissors. A segment of previously harvested reverse saphenous vein was anastomosed in end-to-side manner using 7-0 Prolene suture. Vein graft to PDA was brought along the right side of the heart and sized. Aortotomy was performed on the right [...] mm in size. Arteriotomy was performed with [place] and extended with Ruiz scissors. A [...] mm in size. Arteriotomy was performed with [place] and extended with Ruiz scissors. A segment of previously harvested reverse saphenous vein was anastomosed in end-to-side manner using running 7-0 Prolene suture. Vein graft to diagonal was brought along the left side of the heart and sized. Aortotomy was performed on the left aspect of the aorta using 4 mm punch. Proximal anastomosis of the diagonal graft was then performed using running 6-0 Prolene suture. Finally, LAD was explored. This was diseased artery measuring 2 mm in size. Arteriotomy was performed with [place] and extended with Ruiz scissors. MCCORMICK was anastomosed in end-to-side manner using running 8-0 Prolene suture. MCCORMICK pedicle was tacked to epicardium using two interrupted 6-0 Prolene suture. A slit was made in the pericardium on the left aspect, so as to accommodate the MCCORMICK. Careful de-aeration was performed and the cross-clamp was released. One ventricular wire was placed. A 28-[place] chest tube was placed in the mediastinum, 28-angled chest tube was placed in the left pleural space. Once the patient had temperature, de-airing maneuvers were repeated and [...] intubated in stable condition. Dictated By: Luci Beyer MD Date Dictated: 03/04/2023 17:30:44 Date Transcribed: 03/04/2023 20:41:42 /PAP Receipt ID: [id number] Authenticated by Mars Beyer MD On 03/05/2023 02:30:07 PM at 0230 PATIENT NAME: TEVIN NYE [facility] 2023-03-04 17:30:00 [facility] ([facility]) Clinical Note REPORT#:[id number] REPORT STATUS: Signed DATE:03/04/23 TIME: 1729 PATIENT: TEVIN NYE UNIT #: [id number] ROOM/BED: [place] [address] : 51 AGE: 72 SEX: M ATTEND: Luci Beyer MD ADM AUTHOR: Samuel Mcguire MD * ALL edits or amendments must be made on the electronic/computer document * Clinical Note Note: STS RISK SCORES Procedure: Isolated CABG CALCULATE Risk of Mortality: 4.619% Renal Failure: 3.747% Permanent Stroke: 1.355% Prolonged Ventilation: 17.368% DSW Infection: 0.547% Reoperation: 2.463% Morbidity or Mortality: 24.062% Short Length of Stay: 18.785% Long Length of Stay: 13.176% at 1730 RPT #:[id number] END OF REPORT [facility] 2023-03-04 17:19:00 [facility] ([facility]) Brief Op Note REPORT#:[id number] REPORT STATUS: Signed DATE:03/04/23 TIME: 171 PATIENT: TEVIN NYE UNIT #: [id number] ROOM/BED: [address] : 51 AGE: 72 SEX: M ATTEND: Luci Beyer MD ADM AUTHOR: Luci Beyer MD * ALL edits or amendments must be made on the electronic/computer document * See Addendum Op/Inv Proc Note - Brief Pre-procedure diagnosis: CAD COPD Post-procedure diagnosis: same as pre procedure dx Procedures performed: CABG x 4 (MCCORMICK-LAD,SVG-Leana, SVG-OM, SVG-PDA) ALAA EVH (LGSV) Posterior pericardiotomy Primary Surgeon: Christiana Oceanographic Meteorologist(s): Maynor Findings: LAD-2mm diseased aretery Complications: none Estimated blood loss in ml's: 200 cc Specimens removed/altered: ELIAS at 1724 Addendum 1: 03/04/231728 by Samuel Mcguire MD I assisted Dr Beyer with the aparicio features of this operation including CABGs and LAAA Samuel Mcguire MD at 2421 RPT #:[id number] END OF REPORT [facility] 2023-03-04 17:17:00 [id number] [place] [address] PATIENT NAME: TEVIN NYE ADMIT DATE: 03/03/23 ACCOUNT NO: [id number] ROOM NO: [facility] AGE: 72 REPORT TYPE: eECHOCARDIOGRAM REPORT SEX: M ADMITTING PHYSICIAN:Luci Beyer MD ATTENDING PHYSICIAN:Luci Beyer MD *[place] [address] Transthoracic Echocardiogram Patient: Tevin Nye Study Date: 03/04/2023 BP: 109 / 55 Location: [facility] URN: [id number] : 1950 Age: 72 Height: 67 in / 170.2 cm Gender: M Weight: 181.6 lb / 82.6 kg BMI/BSA: 28.5 kg/m 2 / 1.94 m 2 *Ordering Physician: * Luci Beyer MD *Interpreting Physician: * Anuj Sylvester MD *Plastic Design Applier: * Tori Gunn Indications: Pre-Op CABG. Study data: Transthoracic echocardiogram. Procedure: Transthoracic echocardiography was performed. Image quality was adequate. Intravenous contrast (Optison) was administered. Complete 2D, complete spectral Doppler, and color Doppler. Location: CVU. Patient status: Inpatient. Patient room number: 2201. Study status: Routine. Rhythm: Normal sinus rhythm. Findings Left ventricle: The cavity size is normal. Wall thickness is normal. Systolic function is mildly reduced. The estimated ejection fraction is 40-44%. Regional wall motion abnormalities: Severe hypokinesis of the apical anterior, apical septal, apical lateral, and apical myocardium; hypokinesis of the basal-mid anteroseptal myocardium. Doppler parameters PATIENT NAME: TEVIN NYE are consistent with abnormal left ventricular relaxation (grade 1 diastolic dysfunction). Right ventricle: Estimated TAPSE is 2.8 cm. The cavity size is normal. Systolic function is normal. Systolic pressure is moderately increased. Left atrium: The atrium is normal in size. Right atrium: The atrium is normal in size. Aorta: Aortic root: The aortic root is normal in size. Aortic valve: The valve is structurally normal. The valve is trileaflet. There is no evidence of stenosis. There is no regurgitation. Mitral valve: The valve is structurally normal. There is no evidence of stenosis. There is mild regurgitation. Tricuspid valve: Estimated right ventricular systolic pressure is 46 mmHg. The valve is structurally normal. There is moderate regurgitation. Pulmonic valve: The valve is structurally normal. There is no regurgitation. Pericardium: A trivial pericardial effusion is identified. Pulmonary arteries: The main pulmonary artery is normal-sized. Systemic veins: Inferior vena cava: The vessel is dilated. The respirophasic diameter changes are in the normal range (= 50%). Inferior vena cava diameter is 2.1 cm. Measurements Left ventricle Value Ref PHIL, [...] 63 % 52 - 72 E', lat yoanna, TDI 7.9 cm/sec >=10.0 E/e', lat yoanna, 10 --------- TDI E', med yoanna, TDI 6.9 cm/sec >=7.0 E/e', med yoanna, 11 --------- TDI PATIENT NAME: TEVIN NYE E', avg, TDI 7.4 [...] m/sec --------- Mean v, S 0.84 m/sec --------- PATIENT NAME: TEVIN NYE VTI, S 24.2 cm [...] cm 2 --------- Pulmonic valve Value Ref MO v, ED 0.8 m/sec --------- Tricuspid valve [...] abnormal left ventricular relaxation (grade 1 diastolic dysfunction). 2. Regional wall motion abnormality: Severe hypokinesis of the apical anterior, apical septal, apical lateral, and apical myocardium; hypokinesis of the basal-mid anteroseptal myocardium. 3. Right ventricle: Systolic pressure is moderately increased. 4. Mitral valve: There is mild regurgitation. PATIENT NAME: TEVIN NYE 5. Tricuspid valve: Estimated right ventricular systolic pressure is 46 mmHg. There is moderate regurgitation. 6. Pericardium, extracardiac: A trivial pericardial effusion is identified. 7. Inferior vena cava: The vessel is dilated. The respirophasic diameter changes are in the normal range (= 50%). Inferior vena cava diameter is 2.1 cm. Prepared and electronically signed by Anuj Sylvester MD 03/04/2023 17:17 at 1717 PATIENT NAME: TEVIN NYE [facility] 2023-03-04 12:46:00 [facility] ([facility]) Pulmonology Progress Note REPORT#:[id number] REPORT STATUS: Signed DATE:03/04/23 TIME: 1246 PATIENT: TEVIN NYE UNIT #: [id number] ROOM/BED: [place] [address] : 51 AGE: 72 SEX: M ATTEND: Luci Beyer MD ADM AUTHOR: Sharmila Alan * ALL edits or amendments must be made on the electronic/computer document * Subjective Comments: On room air, feels better, chest pain resolved with higher NTG gtt dose, on heparin gtt ROS All systems rev neg: except as marked Objective General VS/I O: Last Documented: Result Date Time Pulse Ox 96 [...] Stated/Reported Measurement Method PATIENT WEIGHT: Weight (lb): 182 Weight (oz): 15.74 Weight (kg): 83.000 Medications: Active Meds + DC'd Last 24 Hrs Fentanyl Citrate (SUBLIMAZE) 0 .STK-MED ONE .ROUTE (DC) Papaverine HCl (PAPAVERINE HCL) 0 .STK-MED ONE IV (DC) Albumin Human (ALBUMINAR-25%) 100 ML .STK-MED ONE IV (DC) Fentanyl Citrate (SUBLIMAZE) 0 .STK-MED ONE IV (DC) Clindamycin Phosphate (CLEOCIN 900 MG/NS 50 ML) 50 ML .STK-MED ONE IV ( DC) Sodium Chloride (SODIUM CHLORIDE 0.9%) 250 ML .STK-MED ONE IV (DC) Vancomycin HCl (Vancomycin 1,250 mg Inj (B2)) 0 .STK-MED ONE IV (DC) Insulin Human Lispro (HUMALOG) 0 AC HS SUBQ Rocuronium Idabel (ZEMURON) 0 .STK-MED ONE IV (DC) Fentanyl Citrate (SUBLIMAZE) 0 .STK-MED ONE .ROUTE (DC) Dexamethasone Sodium Phosphate (DECADRON) 0 .STK-MED ONE .ROUTE (DC) Heparin Sodium (HEPARIN SODIUM) 0 .STK-MED ONE .ROUTE (DC) Lidocaine HCl (XYLOCAINE) 0 .STK-MED ONE .ROUTE (DC) Ondansetron HCl (ZOFRAN) 0 .STK-MED ONE .ROUTE (DC) Rocuronium Idabel (ZEMURON) 0 .STK-MED ONE IV (DC) Fentanyl [...] (JESUS-SYNEPHRINE 10MG/ML AMP) 0 .STK-MED ONE .ROUTE (DC ) Sodium Bicarbonate (SODIUM BICARBONATE) 0 .STK-MED ONE IV (DC) Dexamethasone Sodium Phosphate (DECADRON) 0 .STK-MED ONE .ROUTE (DC) Etomidate (AMIDATE) 0 .STK-MED ONE IV (DC) Lidocaine HCl (XYLOCAINE) 0 .STK-MED ONE .ROUTE (DC) Ondansetron HCl (ZOFRAN) 0 .STK-MED ONE .ROUTE (DC) Rocuronium Idabel (ZEMURON) 0 .STK-MED ONE IV (DC) Succinylcholine Chloride (QUELICIN FLIPTOP) 0 .STK-MED ONE IV (DC) Epinephrine HCl (EPINEPHrine 4 mg/D5W 250 mL) 250 ML .STK-MED ONE IV (DC ) Heparin Sodium (HEPARIN SODIUM) 0 .STK-MED ONE [...] 50 ML) 50 ML PREOP ONCALL IV ( CKD) Metoprolol Tartrate (LOPRESSOR) 6.25 MG ONCE ONE PO (DC) Vancomycin HCl (Vancomycin 1,250 mg Inj (B2)) 1,250 MG PREOP ONCALL IV ( CKD) Sodium Chloride (SODIUM CHLORIDE 0.9%) 250 ML Verapamil HCl (ISOPTIN) 16.6 MG .Q24H ONE IV (CKD) Heparin Sodium (Porcine) (HEPARIN SODIUM) 1,660 UNIT Sodium Bicarbonate (SODIUM BICARBONATE) 0.7 ML Nitroglycerin/Dextrose (NITROGLYCERIN 50MG/D5W 250ML) 8.3 MG Lactated Ringer's (LACTATED RINGERS) 949.5 ML Iopamidol (ISOVUE-300 100ML) 100 ML .STK-MED ONE IV (DC) Budesonide (PULMICORT RESPULES) 0.5 MG RTBID INH Formoterol Fumarate (PERFOROMIST) 20 MCG RTBID NEB Doxycycline Hyclate (VIBRAMYCIN) 100 MG Q12HR IV Sodium Chloride (SODIUM CHLORIDE 0.9% 100 ML) 100 ML Guaifenesin (MUCINEX 600MG TAB SA) 600 MG Q12HR PO Ipratropium Idabel (ATROVENT) 500 MCG RTQ6H INH Mupirocin (BACTROBAN [...] 50,000MCG/D5W 250ML) 250 ML ASDIR IV Physical Exam General appearance: alert, awake, oriented, no acute distress Head/eyes: atraumatic, normocephalic, PERRL Neck: supple/no meningismus, no bruit/NL carotids, no JVD, no lymphadenopathy Cardiovascular: normal S1/S2, no rub, no gallop Respiratory/chest: decreased breath sounds, prolonged exp phase, wheezing, symmetric expansion Abdomen: soft, normal bowel sounds, no distention, no guarding Extremities: no clubbing, no cyanosis Neuro/STONE BREAKER: alert, oriented X 3, no motor deficits Skin: dry, normal color Psychiatry: normal affect, no hallucinations Results Findings/Data: Laboratory Tests 03/04/23 0354: [Embedded Image Not Available] 03/04/23 0235: [Embedded Image Not Available] 03/03/232036: [Embedded Image Not Available] Laboratory Tests 03/04 1228 Blood Gas O2 Saturation [...] Laboratory Tests 03/04 03/04 03/04 03/03 1228 0783 6181 2036 Chemistry Sodium (134 - 147 mEq/L) [...] 4.97 RATIO) 4.74 Laboratory Tests 03/04 03/04 03/03 1230 0235 2036 Coagulation INR (0.8 - 1.2) 1.3 H PTT (Perry) (25.0 - 39.5 Seconds) 80.6 H 39.0 PT Patient/Control Mix (9.3 - 12.9 SECONDS) 14.4 H Activated Coag Time (74 - 137 SEC) 179 H Laboratory Tests 03/04 03/03 0235 2036 Hematology WBC (4.5 - 11.0 x10 3/uL) [...] - 32.0 %) 5.0 L 6.4 L Grainger % (Auto) (4.8 - 9.0 %) 2.8 L 7.8 Eos % (Auto) (0.3 - 3.7 %) 0.2 L 1.0 Baso % (Auto) (0.0 - 2.0 %) 0.2 0.4 Neut # (Auto) (2.0 - 7.6 x10 3/uL) 4.95 4.18 Lymph # (Auto) (1.0 - 3.8 x10 3/uL) 0.27 L 0.32 L Grainger # (Auto) (0.1 - 0.8 x10 3/uL) [...] pH (5.0 - 7.0) 5.0 Ur Specific Cummaquid (1.005 - 1.030) 1.043 H Urine Protein [...] DNA Surveillance Screen - COMP NASAL Radiology data: Recent Impressions: CAT SCAN - CT ANGIO CHEST 03/03 2342 [...] in 3 months. Impression By: Ramón Roman M.D. ULTRASOUND - DUP EXTRACRANIAL SCOTTY 03/03 2350 Report [...] detectable patent lumen. Impression By: BuckKPRich Roman M.D. ULTRASOUND - DUP VEIN SCOTTY 03/04 0021 Report Impression - Status: SIGNED Entered: 03/04/2023 0206 IMPRESSION: Greater saphenous veins are patent. Vein mapping as described. Impression By: [email or web address] - Morales Villegas M.D. RADIOLOGY - XR CHEST 1 V 03/04 0651 Report Impression - Status: SIGNED Entered: 03/04/2023 0807 IMPRESSION: Mild bibasilar opacities which may represent atelectasis or infiltrate. Impression By: [email or web address] - Bon Spangler M.D. ULTRASOUND - DUP VEIN SCOTTY 03/04 0713 Report Impression - Status: SIGNED Entered: 03/04/2023 0805 IMPRESSION: No evidence of deep vein thrombosis. Impression By: [email or web address] - Ezekiel Esteves M.D. Results: CT results reviewed, x-ray personally reviewed Diagnosis, Assessment Plan Free Text A P: 1- Acute COPD exacerbation 2- Recent pulmonary embolism on Eliquis 3- NSTEMI/Multivessel coronary artery disease 5- Hypertension 6- History of tobacco use 7- Obesity - Nasal cannula O2 as needed, titrate to keep sats above 94%. On room air - Continue IV Solu-Medrol 40 mg every 8 hours - IV Doxycycline - Pulmicort Perforomist and Atrovent nebulizers - Mucinex every 12 hours - CTA chest reviewed, no PE, emphysema, small effusions, RLL 1.5 cm Nodule. Need repeat CT chest in 6-8 weeks. Patient informed - Lower extremity Doppler negative for DVT - Patient has increased risk for postoperative pulmonary complications due to underlying COPD - Will follow perioperatively - D/W CTS at 1252 RPT #:[id number] END OF REPORT [facility] 2023-03-04 07:07:00 [id number] [place] [address] PATIENT NAME: TEVIN NYE ADMIT DATE: 03/03/23 ACCOUNT NO: [id number] ROOM NO: G.2201 AGE: 72 REPORT TYPE: eELECTROCARDIOGRAM REPORT SEX: M ADMITTING PHYSICIAN:Luci Beyer MD ATTENDING PHYSICIAN:Luci Beyer MD Order: [id number] Test Reason : chest pain Test Date/Time Stamp: FriMar 04 2023 07:07:35 Blood Pressure : / mmHG Vent. Rate : 083 BPM Atrial Rate : 083 BPM P-R Int : 182 ms QRS Dur : 090 ms QT Int : 366 ms P-R-T Axes : 064 -61 133 degrees QTc Int : 430 ms Normal sinus rhythm Left axis deviation Nonspecific ST and T wave abnormality Abnormal ECG No previous ECGs available Confirmed by MD SYLVESTER GERARD ([id number]) on 03/04/2023 5:14:35 PM Referred By: Self Referred Confirmed by:ANUJ SYLVESTER MD at 1714 PATIENT NAME: TEVIN NYE [facility] 2023-03-04 06:57:00 [facility] Cardiology Progress Note REPORT#:[id number] REPORT STATUS: Signed DATE:03/04/23 TIME: 656 PATIENT: TEVIN NYE UNIT #: [id number] ROOM/BED: [place] [address] : 51 AGE: 72 SEX: M ATTEND: Luci Beyer MD ADM AUTHOR: Anuj Sylvester MD * ALL edits or amendments must be made on the electronic/computer document * Subjective Chief complaint: No change Objective General VS/I O: 24 hour I O ending at 0700: [...] 98 03/04 0035 97 136/63 91 99 03/04 0030 95 13 139/63 92 98 03/04 0025 93 147/70 99 100 03/04 0020 96 157/73 105 99 06 0015 93 156/73 107 98 06 0011 92 156/74 107 97 03/04 0010 93 03/03 2320 99 27 142/65 97 100 03/03 2315 97 22 156/74 106 100 06/ 2310 100 22 139/69 98 100 06 2308 98.4 98 13 141/68 0.0 100 Nasal cannula 03/03 2305 99 30 141/68 97 100 06 2300 94 28 144/70 101 96 03/03 2255 91 21 102/53 76 91 03/03 2250 88 21 113/54 78 95 03/03 2245 91 22 124/57 84 91 03/03 2240 92 17 130/61 89 95 03/03 2235 93 21 145/69 99 97 03/03 2230 92 17 139/65 94 95 03/03 2225 92 13 148/69 99 96 03/03 2220 96 18 139/66 95 99 03/03 2215 93 27 145/69 99 97 03/03 2210 92 21 140/67 96 95 03/03 2205 93 21 137/65 94 94 03/03 2200 92 19 138/65 93 93 03/03 2155 94 17 107/57 76 93 03/03 2152 97 23 105/57 77 93 03/03 2150 97 27 131/58 84 93 03/03 2145 96 20 96 03/03 2140 98 22 161/76 109 97 03/03 2135 102 26 153/72 104 95 03/03 2130 Nasal 4 cannula 03/030 97 22 150/71 102 96 03/03 2120 92 10 141/65 93 98 03/03 2118 92 11 130/62 89 95 03/03 2115 91 19 134/62 89 92 03/03 2100 91 14 132/59 83 94 Nasal 4 cannula 03/03 2052 99 Nasal 3 cannula 03/03 2030 92 14 145/66 92 Nasal 4 cannula 03/03 2000 92 14 165/75 105 97 Nasal 4 cannula 03/037 98.2 79 13 158/70 0.0 96 Nasal cannula PATIENT WEIGHT: Weight (lb): 182 Weight (oz): 15.74 Weight (kg): 83.000 Medications: Active Meds + DC'd Last 24 Hrs Clindamycin Phosphate (CLEOCIN 900 MG/NS 50 ML) 50 ML PREOP ONCALL IV ( CKD) Metoprolol Tartrate (LOPRESSOR) 6.25 MG ONCE ONE PO (DC) Vancomycin HCl (Vancomycin 1,250 mg Inj (B2)) 1,250 MG PREOP ONCALL IV ( CKD) Sodium Chloride (SODIUM CHLORIDE 0.9%) 250 ML Verapamil HCl (ISOPTIN) 16.6 MG .Q24H ONE IV (CKD) Heparin Sodium (Porcine) (HEPARIN SODIUM) 1,660 UNIT Sodium Bicarbonate (SODIUM BICARBONATE) 0.7 ML Nitroglycerin/Dextrose (NITROGLYCERIN 50MG/D5W 250ML) 8.3 MG Lactated Ringer's (LACTATED RINGERS) 949.5 ML Iopamidol (ISOVUE-300 100ML) 100 ML .STK-MED ONE IV (DC) Budesonide (PULMICORT RESPULES) 0.5 MG RTBID INH Formoterol Fumarate (PERFOROMIST) 20 MCG RTBID NEB Doxycycline Hyclate (VIBRAMYCIN) 100 MG Q12HR IV Sodium Chloride (SODIUM CHLORIDE 0.9% 100 ML) 100 ML Guaifenesin (MUCINEX 600MG TAB SA) 600 MG Q12HR PO Ipratropium Idabel (ATROVENT) 500 MCG RTQ6H INH Mupirocin (BACTROBAN [...] 50,000MCG/D5W 250ML) 250 ML ASDIR IV Physical Exam General appearance: alert, awake Neck: full range of motion, non-tender, normal thyroid, supple/no meningismus, no bruit/NL carotids, no JVD, no lymphadenopathy, no masses or swelling Cardiovascular: CV assessment: regular rate and rhythm Respiratory: decreased breath sounds, clear to auscultation Abdomen: non-tender, normal bowel sounds, no distention, no guarding, no mass/ organomegaly, no pulsatile mass, no rebound Upper extremity: UE assessment: normal capillary refill, no edema Lower extremity: LE assessment: normal capillary refill, no edema Results Findings/Data: Laboratory Tests 03/04 Chemistry Sodium (134 - 147 mEq/L) 140 [...] - 12.9 SECONDS) 14.4 H Laboratory Tests 03/045 2036 Hematology WBC (4.5 - 11.0 x10 3/uL) [...] - 32.0 %) 5.0 L 6.4 L Grainger % (Auto) (4.8 - 9.0 %) 2.8 L 7.8 Eos % (Auto) (0.3 - 3.7 %) 0.2 L 1.0 Baso % (Auto) (0.0 - 2.0 %) 0.2 0.4 Neut # (Auto) (2.0 - 7.6 x10 3/uL) 4.95 4.18 Lymph # (Auto) (1.0 - 3.8 x10 3/uL) 0.27 L 0.32 L Grainger # (Auto) (0.1 - 0.8 x10 3/uL) [...] pH (5.0 - 7.0) 5.0 Ur Specific Cum[place] (1.005 - 1.030) 1.043 H Urine Protein [...] Mucus (NONE SEEN /LPF) TRACE Laboratory Tests 03/04 Chemistry Magnesium (1.80 - 2.40 mg/dL) 1.76 L B-Natriuretic Peptide (0 - 100 PG/ML) 802.0 H Radiology data: Recent Impressions: CAT SCAN - CT ANGIO CHEST 03/03 2342 [...] performed in 3 months. Impression By: [email or web address] - Alvino Roman M.D. ULTRASOUND - DUP EXTRACRANIAL SCOTTY 03/03 2630 Report Impression - Status: SIGNED Entered: 03/04/2023 [...] lumen. Impression By: [email or web address] - Alvino Roman M.D. ULTRASOUND - DUP VEIN SCOTTY 03/04 0021 Report Impression - Status: SIGNED Entered: 03/04/2023 0206 IMPRESSION: Greater saphenous veins are patent. Vein mapping as described. Impression By: [email or web address] - Morales Villegas M.D. Diagnosis, Assessment Plan Free Text DxA P Notes Free Text DxA P Notes: 1- Severe COPD with exacerbation: A per Pulm 2- Recent pulmonary embolism on Eliquis 3- NSTEMI/Multivessel coronary artery disease: Needs CBBG and is high risk 5- Hypertension 6- History of tobacco use 7- Obesity WILL DO ECHO TODAY at 0658 RPT #:[id number] END OF REPORT [facility] 2023-03-04 02:31:00 [facility] ([facility] Critical Care Consult Note REPORT#:[id number] REPORT STATUS: Signed DATE:03/04/23 TIME: 230 PATIENT: TEVIN NYE UNIT #: [id number] ROOM/BED: [place] [address] : 51 AGE: 72 SEX: M ATTEND: Luci Beyer MD ADM AUTHOR: Emery Sheehan Jr, MD * ALL edits or amendments must be made on the electronic/computer document * History of Present Illness HPI HPI: 72 y.o. male with PMH of hypertension, dyslipidemia, diabetes, former smoker ( quit 2008), BPH, prostate CA s/p radiation, COPD (uses inhaler at home, no home oxygen), and PE (November 2022 on eliquis) who presented to [facility] with chest pain, dyspnea on exertion, and NSTEMI. Coronary angiogram was done and revealed severe multivessel coronary artery disease. Patient was then transferred to [facility] for CV surgery evaluation and need for CABG. Transferred to the ICU for nitroglycerin drip and preoperative workup. Also noted to have chest pain - which he states is better and related to when he coughs. Currently without any pain. History - Adult longitudinal Past medical history: Reports: COPD, Diabetes mellitus, Hypertension, BPH, Dyslipidemia. Past surgical history: Reports: Knee procedure, Lung surgery (collapsed lung). Alcohol use: Denies EtOH use Drug use: Denies recreational drugs Smoking status for patients 13 years old or older: Former Smoker Packs per day: 1 Years smoked: 20 Pack years: 20 Allergies: Coded Allergies: Penicillins (USE COMMENT BUTTON 03/03/23) PT STATES THAT HE WAS JUST TOLD THAT HE'S ALLERGIC TO PENICILLIN AND ITS NOT GONNA WORK FOR HIM Review of Systems ROS Constitutional: Denies: chills, fatigue. ENT: Denies: ear drainage, ear ringing. Respiratory: Denies: [place] (dyspnea on exertion), SOB, wheezing. Cardiovascular: Reports: chest pain, [place] (dyspnea on exertion). Denies: edema. GI: Denies: abdominal pain, nausea, vomiting. All systems rev neg: except as marked Objective Physical Exam VS/I O: Last Documented: Result Date Time Pulse Ox 96 [...] and BMI Weight (kg): 83.000 BMI: 28.7 Medications: Active Meds + DC'd Last 24 Hrs Clindamycin Phosphate (CLEOCIN 900 MG/NS 50 ML) 50 ML PREOP ONCALL IV ( CKD) Metoprolol Tartrate (LOPRESSOR) 6.25 MG ONCE ONE PO Vancomycin HCl (Vancomycin 1,250 mg Inj (B2)) 1,250 MG PREOP ONCALL IV ( CKD) Sodium Chloride (SODIUM CHLORIDE 0.9%) 250 ML Verapamil HCl (ISOPTIN) 16.6 MG .Q24H ONE IV (CKD) Heparin Sodium (Porcine) (HEPARIN SODIUM) 1,660 UNIT Sodium Bicarbonate (SODIUM BICARBONATE) 0.7 ML Nitroglycerin/Dextrose (NITROGLYCERIN 50MG/D5W 250ML) 8.3 MG Lactated Ringer's (LACTATED RINGERS) 949.5 ML Iopamidol (ISOVUE-300 100ML) 100 ML .STK-MED ONE IV (DC) Budesonide (PULMICORT RESPULES) 0.5 MG RTBID INH Formoterol Fumarate (PERFOROMIST) 20 MCG RTBID NEB Doxycycline Hyclate (VIBRAMYCIN) 100 MG Q12HR IV Sodium Chloride (SODIUM CHLORIDE 0.9% 100 ML) 100 ML Guaifenesin (MUCINEX 600MG TAB SA) 600 MG Q12HR PO Ipratropium Idabel (ATROVENT) 500 MCG RTQ6H INH Mupirocin (BACTROBAN [...] ML ASDIR IV General appearance: alert, awake, oriented Head/Eyes: EOMI, PERRLA Cardiovascular: normal capillary refill, normal heart sounds, regular rate and rhythm, normal S1/S2 Respiratory: aerating well, clear to auscultation, symmetric expansion Abdomen: soft, non-tender Extremities: moves all Results Findings/Data: Laboratory Tests 03/03/232036: [Embedded Image Not Available] Laboratory Tests 03/03 Chemistry Sodium (134 - 147 [...] INR (0.8 - 1.2) 1.3 H PTT (Perry) (25.0 - 39.5 Seconds) 39.0 PT Patient/Control [...] (Auto) (14.0 - 32.0 %) 6.4 L Grainger % (Auto) (4.8 - 9.0 %) 7.8 Eos % (Auto) (0.3 - 3.7 %) 1.0 Baso % (Auto) (0.0 - 2.0 %) 0.4 Neut # (Auto) (2.0 - 7.6 x10 3/uL) 4.18 Lymph # (Auto) (1.0 - 3.8 x10 3/uL) 0.32 L Grainger # (Auto) (0.1 - 0.8 x10 3/uL) [...] (Man) (0.0 - 0.1 x10 3/uL) 0.00 Microbiology: 03/03 1952 NASAL: MSSA Surveillance Screen - ORD 03/03 1952 NASAL: MRSA DNA Surveillance Screen - ORD Radiology data: Recent Impressions: CAT SCAN - CT ANGIO CHEST 03/03 4582 Report Impression - Status: SIGNED Entered: 03/04/2023 [...] performed in 3 months. Impression By: Ramón Romna M.D. ULTRASOUND - DUP EXTRACRANIAL SCOTTY 03/03 2350 Report [...] detectable patent lumen. Impression By: Ramón Roman M.D. ULTRASOUND - DUP VEIN SCOTTY 03/04 0021 Report Impression - Status: SIGNED Entered: 03/04/2023 0206 IMPRESSION: Greater saphenous veins are patent. Vein mapping as described. Impression By: [email or web address] - Morales Villegas M.D. Diagnosis, Assessment Plan Diagnosis, Assessment Plan Additional comments: 72 M presented with chest pain to the ICU - placed on nitro drip. Pain improved. Also with h/o NSTEMI, CAD, hypertension, dyslipidemia, diabetes, and PE (November 2022 on eliquis). Eliquis on hold. CT chest shows no PE - however concerning for 1.5 x 0.8 cm nodule on right lower lobe. Neuro: pain controlled - monitor CV: Chest pain - on nitro gtt, pending eval for CABG procedure - continue hold eliquis Resp: supplemental oxygen - h/o PE - CTA negative GI: NPO for now - monitor glucose levels : monitor UOP Heme: stable at 0248 RPT #:[id number] END OF REPORT [facility] 2023-03-03 21:35:00 [facility] ([facility] Cardiology Consultation REPORT#:[id number] REPORT STATUS: Signed DATE:03/03/23 TIME: 2134 PATIENT: TEVIN NYE UNIT #: [id number] ROOM/BED: 3361-1 : 51 AGE: 72 SEX: M ATTEND: Luci Beyer MD ADM AUTHOR: Anuj Sylvester MD * ALL edits or amendments must be made on the electronic/computer document * History - Adult longitudinal Allergies: Coded Allergies: Penicillins (USE COMMENT BUTTON 03/03/23) PT STATES THAT HE WAS JUST TOLD THAT HE'S ALLERGIC TO PENICILLIN AND ITS NOT GONNA WORK FOR HIM Diagnosis, Assessment Plan Free Text DxA P Notes Free Text DxA P Notes: CARDIOLOGY CONSULT DICTATED at 2136 RPT #:[id number] END OF REPORT [facility] 2023-03-03 21:32:00 [id number] [place] [address] PATIENT NAME: TEVIN NYE ADMIT DATE: 03/03/23 ACCOUNT NO: [id number] ROOM NO: 2201 AGE: 72 REPORT TYPE: CONSULTATION REPORT SEX: M ADMITTING PHYSICIAN:Luci Beyer MD ATTENDING PHYSICIAN:Luci Beyer MD CONSULTATION DATE: 03/03/2023 CARDIOLOGY CONSULTATION REQUESTING PHYSICIAN: Dr. Beyer. HISTORY OF PRESENT ILLNESS: Mr. Nye is a 72-year-old pleasant gentleman with a history of hypertension, diabetes mellitus, hypercholesterolemia, former smoker, prostate cancer, and COPD, who was consulted for 3-vessel disease, requiring bypass surgery. [facility]. Cardiac cath is being done for non-STEMI. It revealed 3-vessel disease and he is transferred to [facility] for bypass surgery. PAST MEDICAL HISTORY: Otherwise, as above. SOCIAL HISTORY: He was a chronic smoker. FAMILY HISTORY: Positive for premature coronary artery disease. MEDICATIONS: As charted. PHYSICAL EXAMINATION: VITAL SIGNS: Blood pressure is 138/78, heart rate is 78 beats per minute and regular, respiratory rate 18, and temperature 98.5. HEENT EXAMINATION: No jugular venous distention. CHEST: Bilateral rhonchi in all lung tidwell. CARDIOVASCULAR EXAMINATION: Apical impulse not palpable. S1, S2, soft. ABDOMEN: Benign. EXTREMITIES: No edema. DIAGNOSTIC DATA: EKG shows normal sinus, nonspecific ST changes. IMPRESSION: 1. Non-ST elevation myocardial infarction with three-vessel disease, requiring bypass surgery. 2. Chronic obstructive pulmonary disease. 3. Hypertension. 4. Hypercholesterolemia. 5. Diabetes mellitus. 6. History of pulmonary embolism, was on Eliquis. RECOMMENDATIONS: 1. Agree with echocardiogram. PATIENT NAME: TEVIN NYE 2. Admit to CVICU. 3. Initiate preoperative workup. 4. Bypass surgery as per Dr. Beyer. Dictated By: Anuj Sylvester MD Date Dictated: 03/03/2023 21:32:47 Date Transcribed: 03/03/2023 22:51:12 KRISTOPHER/AUGUSTO Receipt ID: [id number] Authenticated by Anuj Sylvester MD On 03/04/2023 09:01:13 PM at 0901 PATIENT NAME: TEVIN NYE [facility] 2023-03-03 20:15:00 [facility] Pulmonary Consultation Note REPORT#:[id number] REPORT STATUS: Signed DATE:03/03/23 TIME: 2014 PATIENT: TEVIN NYE UNIT #: [id number] ROOM/BED: [place] [address] : 51 AGE: 72 SEX: M ATTEND: Luci Beyer MD ADM AUTHOR: Sharmila Alan * ALL edits or amendments must be made on the electronic/computer document * History of Present Illness HPI Requesting clinician: Dr. Beyer Reason for consult: Preop clearance Chief complaint: Chest pain PCP: PCP: No Primary or Family Physician HPI: 72 years old male with prolonged smoking history [...] persistent cough. Audible wheezing. History - Adult longitudinal Past medical history: Reports: COPD, Diabetes mellitus, Hypertension, BPH, Dyslipidemia. Past surgical history: Reports: Knee procedure, Lung surgery (collapsed lung). Alcohol use: Denies EtOH use Drug use: Denies recreational drugs Smoking status for patients 13 years old or older: Former Smoker Packs per day: 1 Years smoked: 20 Pack years: 20 Medications: Home Medications: Medication Dose/Rte/Freq Days Qty Entered Last Max Daily Dose Reviewed OXYBUTYNIN (DITROPAN) 5 MG PO BID 03/03/23 03/03/23 Strength: 5 MG TAB 1937 1948 TAMSULOSIN ER (FLOMAX) 0.8 MG PO DAILY 03/03/23 03/03/23 Strength: 0.4 MG CAP.SR.24H 1938 1948 FLUoxetine (PROzac) 10 MG PO QAM 03/03/23 03/03/23 Strength: 10 MG CAP 1938 1948 LATANOPROST 1 DROP EACH EYE 03/03/23 03/03/23 (XALATAN 0.005% OPHTH BEDTIME 1939 1948 SOLN) Strength: 0.005 % OPHTH.SOLN LISINOPRIL (ZESTRIL) 20 MG PO DAILY 03/03/23 03/03/23 Strength: 20 MG TAB 1939 1948 METOPROLOL TARTRATE 25 MG PO BID 03/03/23 03/03/23 (LOPRESSOR) 1940 1948 Strength: 50 MG TAB INSULIN LISPRO 6 03/03/23 03/03/23 (HumaLOG KWIKPEN (3mL)) 1942 1948 Strength: 100 UNIT/ML INSULN.PEN INSULIN LISPRO (HumaLOG) 50 03/03/23 03/03/23 Strength: 100 UNIT/ML VIAL 1943 1948 CALCIUM CARBONATE/VIT 2 TAB PO DAILY 03/03/23 03/03/23 D3 1944 1948 (CALCIUM CARB/VIT D3 500 MG/200 UNITS) Strength: 500 MG CALCIUM-5 MCG (200 UNIT) TAB CYANOCOBALAMIN 100 MCG PO DAILY 03/03/23 03/03/23 (VITAMIN B-12) 1944 1948 Strength: 100 MCG TAB HYDROCHLOROTHIAZIDE 25 MG PO DAILY 03/03/23 03/03/23 (HYDRODIURIL) 1945 1948 Strength: 25 MG TAB APIXABAN (ELIQUIS) 5 MG PO BID 03/03/23 03/03/23 Strength: 5 MG TAB 1946 1948 ASPIRIN 81 MG PO DAILY 03/03/23 03/03/23 Strength: 81 MG TAB.CHEW 1946 1948 ATORVASTATIN (LIPITOR) 5 MG PO DAILY 03/03/23 03/03/23 Strength: 10 MG TAB 1947 1948 Current Hospital Medications: Anti-Infective Agents Sig/Yas Start time Last Medication Dose Route Stop Time Status Admin Clindamycin Phosphate 50 ML PREOP ONCALL 03/04 500 CKD (CLEOCIN 900 MG/NS IV 03/04 2359 50 ML) Vancomycin HCl 1,245 MG PREOP ONCALL 03/04 500 PEND (VANCOMYCIN HCL) IV 03/04 2359 Sodium Chloride 250 ML (SODIUM CHLORIDE 0.9%) Doxycycline Hyclate 100 MG Q12HR 03/03 2100 AC (VIBRAMYCIN) IV 03/08 2059 Sodium Chloride 100 ML (SODIUM CHLORIDE 0.9% 100 ML) Autonomic Drugs Sig/Yas Start time Last Medication Dose Route Stop Time Status Admin Formoterol Fumarate 20 MCG RTBID 03/03 2200 AC (PERFOROMIST) NEB 04/02 2159 Ipratropium Idabel 500 MCG RTQ6H 03/03 2100 AC (ATROVENT) [...] ONE 03/04 0500 AC (LOPRESSOR) PO 03/04 050 Verapamil HCl [...] 03/03 2100 AC (MUCINEX 600MG TAB PO 04/02) Skin And Mucous Membrane Agent Sig/Yas Start time Last Medication Dose Route Stop Time Status Admin Mupirocin 1 APPLIC BID 03/03 2100 AC (BACTROBAN 2% 22 GM NASAL 03/08 901 OINTMENT) Allergies: Coded Allergies: Penicillins (USE COMMENT BUTTON 03/03/23) PT STATES THAT HE WAS JUST TOLD THAT HE'S ALLERGIC TO PENICILLIN AND ITS NOT GONNA WORK FOR HIM Review of Systems All systems rev neg: except as marked Objective Physical Exam Vitals: Last Documented: Result Date Time Pulse Ox 96 03/03 1837 B/P 158/70 03/03 1837 B/P Mean 0.0 03/03 1837 O2 Delivery Nasal cannula 03/03 1837 Temp 36.8 03/03 1837 Pulse 79 03/03 1837 Resp 13 03/03 1837 General appearance: alert, awake, oriented, no acute distress Head/eyes: atraumatic, normocephalic, PERRL Neck: supple/no meningismus, no bruit/NL carotids, no JVD, no lymphadenopathy Cardiovascular: normal S1/S2, no rub, no gallop Respiratory/chest: decreased breath sounds, prolonged exp phase, wheezing, symmetric expansion Abdomen: soft, normal bowel sounds, no distention, no guarding Extremities: no clubbing, no cyanosis Neuro/STONE BREAKER: alert, oriented X 3, no motor deficits Skin: dry, normal color Psychiatry: normal affect, no hallucinations Diagnosis, Assessment Plan Free Text DxA P Notes Free Text DxA P Notes: 1- Acute COPD exacerbation 2- Recent pulmonary embolism on Eliquis 3- NSTEMI/Multivessel coronary artery disease 5- Hypertension 6- History of tobacco use 7- Obesity - Continue nasal cannula O2, titrate to keep sats above 94% - IV Solu-Medrol 40 mg every 8 hours - IV Doxycycline - Pulmicort Perforomist and Atrovent nebulizers - Mucinex every 12 hours - Check CTA of the chest to ensure resolution of the PE, lower extremity Doppler rule out DVT - Recommend to postpone surgery until COPD flareup is treated. - Patient has increased risk for postoperative pulmonary complications due to underlying COPD Thank you very much Dr. Beyer for giving me the opportunity to participate in this patient's care, I will follow the patient with you. at 2027 RPT #:[id number] END OF REPORT [facility] 2023-03-03 19:54:00 [facility] ([facility] History Physical - Adult REPORT#:[id number] REPORT STATUS: Signed DATE:03/03/23 TIME: 1953 PATIENT: TEVIN NYE UNIT #: [id number] ROOM/BED: 3343-1 : 51 AGE: 73 SEX: M ATTEND: Luci Beyer MD ADM AUTHOR: Luci Beyer MD * ALL edits or amendments must be made on the electronic/computer document * History of Present Illness HPI Chief complaint: Chest pain PCP: PCP: No Primary or Family Physician HPI: This is a pleasant 72 year old male with past medical history of hypertension, dyslipidemia, DM-2 (on insulin), former smoker (quit 2018), BPH, prostate CA s/p radiation, COPD (uses inhaler at home, no home oxygen), and PE (November 2022 on eliquis) who presented to [facility] with chest pain, dyspnea on exertion, and NSTEMI. Coronary angiogram was done and revealed severe multivessel coronary artery disease. Patient was then transferred to [facility] for CV surgery evaluation and need for CABG. History Past medical history: Reports: COPD, Diabetes mellitus, Hypertension, BPH, Dyslipidemia. Past surgical history: Reports: Knee procedure, Lung surgery (collapsed lung). Alcohol use: Denies EtOH use Drug use: Denies recreational drugs Smoking status for patients 13 years old or older: Former Smoker Packs per day: 1 Years smoked: 20 Pack years: 20 Medication/Allergy-Vaccine Hx Medications: Home Medications: Medication Dose/Rte/Freq Days Qty Entered Last Max Daily Dose Reviewed OXYBUTYNIN (DITROPAN) 5 MG PO BID 03/03/23 03/03/23 Strength: 5 MG TAB 1937 1948 TAMSULOSIN ER (FLOMAX) 0.8 MG PO DAILY 03/03/23 03/03/23 Strength: 0.4 MG CAP.SR.24H 1938 1948 FLUoxetine (PROzac) 10 MG PO QAM 03/03/23 03/03/23 Strength: 10 MG CAP 1938 1948 LATANOPROST 1 DROP EACH EYE 03/03/23 03/03/23 (XALATAN 0.005% OPHTH BEDTIME 1939 1948 SOLN) Strength: 0.005 % OPHTH.SOLN LISINOPRIL (ZESTRIL) 20 MG PO DAILY 03/03/23 03/03/23 Strength: 20 MG TAB 1939 1948 METOPROLOL TARTRATE 25 MG PO BID 03/03/23 03/03/23 (LOPRESSOR) 1940 1948 Strength: 50 MG TAB INSULIN LISPRO 6 03/03/23 03/03/23 (HumaLOG KWIKPEN (3mL)) 1942 1948 Strength: 100 UNIT/ML INSULN.PEN INSULIN LISPRO (HumaLOG) 50 03/03/23 03/03/23 Strength: 100 UNIT/ML VIAL 1943 1948 CALCIUM CARBONATE/VIT 2 TAB PO DAILY 03/03/23 03/03/23 D3 1944 1948 (CALCIUM CARB/VIT D3 500 MG/200 UNITS) Strength: 500 MG CALCIUM-5 MCG (200 UNIT) TAB CYANOCOBALAMIN 100 MCG PO DAILY 03/03/23 03/03/23 (VITAMIN B-12) 1944 1948 Strength: 100 MCG TAB HYDROCHLOROTHIAZIDE 25 MG PO DAILY 03/03/23 03/03/23 (HYDRODIURIL) 1945 1948 Strength: 25 MG TAB APIXABAN (ELIQUIS) 5 MG PO BID 03/03/23 03/03/23 Strength: 5 MG TAB 1946 1948 ASPIRIN 81 MG PO DAILY 03/03/23 03/03/23 Strength: 81 MG TAB.CHEW 1946 1948 ATORVASTATIN (LIPITOR) 5 MG PO DAILY 03/03/23 03/03/23 Strength: 10 MG TAB 1947 1948 Current Hospital Medications: Anti-Infective Agents Sig/Yas Start time Last Medication Dose Route Stop Time Status Admin Clindamycin Phosphate 50 ML PREOP ONCALL 03/04 500 CKD (CLEOCIN 900 MG/NS IV 03/04 2359 50 ML) Vancomycin HCl 1,245 MG PREOP ONCALL 03/04 500 PEND (VANCOMYCIN HCL) IV 03/04 2359 Sodium [...] ONE 03/04 500 AC (LOPRESSOR) PO 03/04 501 Verapamil HCl 16.6 MG .Q24H ONE 03/04 [...] 2% 22 GM NASAL 03/08 09 OINTMENT) Allergies: Coded Allergies: Penicillins (USE COMMENT BUTTON 03/03/23) PT STATES THAT HE WAS JUST TOLD THAT HE'S ALLERGIC TO PENICILLIN AND ITS NOT GONNA WORK FOR HIM Review of Systems Constitutional: Denies: chills, fatigue, fever. Skin: Denies: abrasion, bruising, ecchymosis. Allergy/Immun: Denies: allergic reaction, hives, itching. Eyes: Denies: redness, visual loss/blurred, diplopia. ENT: Denies: ear drainage, sore throat, throat pain, tongue pain, toothache. Respiratory: Denies: [place] (dyspnea on exertion), pneumonia, SOB. Cardiovascular: Reports: chest pain. Denies: palpitations. GI: Denies: abdominal pain, nausea, vomiting. : Denies: dysuria, flank pain. Heme: Denies: adenopathy, bleeding, petechiae. Endocrine: Denies: cold intolerance, polydipsia, weight gain. Neuro: Denies: confusion, seizure, syncope. All systems rev neg: except as marked Physical Exam VS/I O Vital Signs: Date Time Temp Pulse Resp B/P B/P Pulse O2 O2 Flow FiO2 Mean Ox Delivery Rate 03/037 36.8 79 13 158/70 0.0 96 Nasal cannula PATIENT WEIGHT: Weight (lb): 182 Weight (oz): 15.74 Weight (kg): 83.000 General appearance: alert, awake, oriented Head/Eyes: atraumatic, clear cornea, normocephalic ENT: moist mucosal membranes Neck: full range of motion, non-tender Cardiovascular: normal capillary refill, regular rate rhythm, normal heart sounds Respiratory: no distress, aerating well, symmetric expansion Abdomen/GI: active bowel sounds, soft, non-tender Genitourinary: no flank pain Extremities: moves all, normal capillary refill Neuro/STONE BREAKER: alert, oriented X 3 Skin: dry, intact Psychiatry: normal affect, normal judgment/insight, normal mood Results Results: labs reviewed, vital signs reviewed, vital signs stable, cath.personally reviewed, current med profile rev'd Diagnosis, Assessment Plan Free Text DxA P Notes Free Text DxA P Notes: This is a pleasant 72 year old male with past medical history of hypertension, dyslipidemia, DM-2 (on insulin), former smoker (quit 2018), BPH, prostate CA s/p radiation, COPD (uses inhaler at home, no home oxygen), and PE (November 2022 on eliquis) who presented to [facility] with chest pain, dyspnea on exertion, and NSTEMI. Coronary angiogram was done and revealed severe multivessel coronary artery disease. Patient was then transferred to [facility] for CV surgery evaluation and need for CABG. 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 The surgery, risks involved, STS score, benefits, complications and alternatives were explained to the patient and his brother. He acknowledged understanding and is willing to proceed. We will tentatively schedule him for surgery tomorrow morning. Further recommendations to follow. at 1739 RPT #:[id number] END OF REPORT [facility]
--- NOTE | 2024-12-17 12:13 | ER ---
Nurse's Notes [facility] Name: Sergey Nye Age: 74 yrs Sex: Male : 1950 Arrival Date: 12/17/2024 Time: 11:18 Bed 19 Private MD: Diagnosis: Skin tear Presentation: 12/17 11:19 Chief complaint: EMS states: toned out to [facility] for s/p fall. No c/o pain. Patient me1 was bending over to pick something up, lost his balance and fell forward. ST to L elbow, Did not hit his head, No LOC. Denies pain. 20g RAC. Coronavirus screen: Vaccine status: At this time, the client does not indicate any symptoms associated with coronavirus-19. Ebola Screen: No symptoms or risks identified at this time. Initial Sepsis Screen: Does the patient meet any 2 criteria? No. Patient's initial sepsis screen is negative. Does the patient have a suspected source of infection? No. Patient's initial sepsis screen is negative. Risk Assessment: Do you want to hurt yourself or someone else? Patient reports no desire to harm self or others. Onset of symptoms was December 17, 2024 at 11:00. 11:19 Method Of Arrival: EMS: [facility] vt1 11:19 Acuity: RAYA 4 me1 Triage Assessment: 11:33 General: Appears in no apparent distress. well groomed, well developed, well nourished, me1 Behavior is calm, cooperative, appropriate for age, Reports s/p fall with skin tear to left elbow. no c/o pain. did not hit head, no LOC. + blood thinners. Pain: Denies pain. EENT: No signs and/or symptoms were reported regarding the EENT system. Neuro: Level of Consciousness is awake, alert, obeys commands, Oriented to person, place, time, situation, Appropriate for age. Cardiovascular: Patient's skin is warm and dry. Respiratory: Airway is patent Respiratory effort is even, unlabored, Respiratory pattern is regular, symmetrical. GI: No signs and/or symptoms were reported involving the gastrointestinal system. : No signs and/or symptoms were reported regarding the genitourinary system. Derm: Skin is healthy with good turgor, Skin is pink, warm \T\ dry. Derm: Wound noted left elbow Wound is skin tear. Musculoskeletal: No signs and/or symptoms reported regarding the musculoskeletal system. Injury Description: bent over and lost his balance falling forward. Historical: - Allergies: 11:33 PENICILLINS; me1 - PMHx: 11:33 Anxiety; Atrial fibrillation; COPD; diabetes mellitus; Hypertensive disorder; Prostate me1 Cancer; - Immunization history:: Adult Immunizations up to date. - Infectious Disease History:: Denies. - Social history:: Smoking status: Patient/guardian denies using tobacco, but has a distant history of tobacco abuse. Screenin:37 [facility] ED Fall Risk Assessment (Adult) History of falling in the last 3 months, vt1 including since admission Yes- single mechanical fall (1 pt) Confusion or Disorientation No (0 pts) Intoxicated or Sedated No (0 pts) Impaired Gait No (0 pts) Mobility Assist Device Used No (0 pt) Altered Elimination No (0 pt) Score/Fall Risk Level 0 - 2 = Low Risk Maintained a safe environment, Provided non-skid footwear, Hourly rounding (assess needs \T\ fall precautionary measures) done. Abuse screen: Denies threats or abuse. Nutritional screening: No deficits noted. Tuberculosis screening: No symptoms or risk factors identified. Assessment: 11:37 General: See triage assessment. . me1 Vital Signs: 11:19 BP 142 / 100; Pulse 51; Resp 17; Temp 98.2; Pulse Ox 100% ; Weight 83.01 kg; Height 5 me1 ft. 8 in. ; Pain 0/10; 12:00 BP 121 / 54; Pulse 49; Resp 16; Temp 98.3; Pulse Ox 99% ; me1 11:19 Body Mass Index 27.82 (83.01 kg, 172.72 cm) me1 11:19 Pain Scale: Adult vt1 ED Course: 11:18 Patient arrived in ED. me1 11:19 Jonh Chan MD is Attending Physician. [email or web address] 11:33 Triage completed. me1 11:33 Arm band placed on Patient placed in an exam room. me1 11:37 Patient has correct armband on for positive identification. Bed in low position. Call vt1 light in reach. Side rails up X2. Provided Education on: POC. Verbalized understanding.. Client placed on continuous cardiac and pulse oximetry monitoring. NIBP monitoring applied. Pulse ox on. NIBP on. 11:37 No provider procedures requiring assistance completed. Maintain EMS IV. Dressing me1 intact. Good blood return noted. Site clean \T\ dry. Gauge \T\ site: 20g RAC. Flushed with 10 mL NS. 12:05 Génesis Rubio, RN is Primary Nurse. me1 12:12 IV discontinued, intact, bleeding controlled, No redness/swelling at site. Pressure me1 dressing applied. Administered Medications: :43 Drug: Acetaminophen PO 1000 mg PO once Route: PO; me1 12:12 Follow up: Response: No adverse reaction; Pain is decreased me1 Medication: 11:37 VIS not applicable for this client. me1 Outcome: 11:29 Discharge ordered by . [email or web address] 12:12 Discharged to home ambulatory, me1 12:12 Condition: stable 12:12 Discharge instructions given to patient, Instructed on discharge instructions, follow up and referral plans. medication usage, Demonstrated understanding of instructions, follow-up care, medications, Prescriptions given X 1, 12:12 Patient left the ED. me1 Signatures: Jonh Chan MD MD [email or web address] Génesis Rubio, RN RN me1
[2024-12-17 12:22] VITALS: BP 121/54; TEMP 98.3; O2SAT 99
== END 2024-12-17 12:12 | disposition home or self-care (01) ==
LOC: ER 11:18
DX: S51.012A Laceration without foreign body of left elbow, initial encounter (principal); W18.30XA Fall on same level, unspecified, initial encounter; Z79.01 Long term (current) use of anticoagulants
CPT/HCPCS: 99284

== ENCOUNTER 2025-05-31 00:22 | Emergency (ER) | payer OTHER ==
[2025-05-31] MEDS ORDERED: DOXYCYCLINE 100 MG CAP PO ONE (00:43)
[2025-05-31] MEDS ORDERED: ALBUTEROL 2.5 MG/3 ML NEB SOL ONE (00:43)
[2025-05-31] MEDS ORDERED: IPRATROPIUM BROM 0.5MG/2.5ML ONE (00:43)
--- OUTSIDE RECORDS SUMMARY | 2025-05-31 00:51 | XMS REPORT | Continuity of Care Document ---
Author Name Unknown Address [address] [facility] [place] [address] Organization [facility] [place] Address [address] [facility] [place] [address] Care Team Providers Care Traffic Survey Technician Name Role Phone Giuliano Meyer MD Primary Care Physician + [phone] Rojelio Magaña Attending Clinician Unavailab Samuel Haywood Attending Clinician Unavailable Luci Beyer Attending Clinician AYSE Juan Attending Clinician UnavailAyse Jiménez Attending Clinician + [phone] [facility] Attending Clinician Unavailable Judah HERNANDEZ, Sendignacio K.H. Attending Clinician + [phone] RYAN CHRISTIANSON K.HMurphy Attending Clinician Unavailila Jeff, [facility] Main Attending Clinician Neal Reid DO Attending Clinician [phone] Doctor Unassigned, [place] Attending Clinician U Perri Armenta MD Attending Clinician [phone] PERRI CALL Attending Clinician Unavailable Akash ANTHONY, Tony Thorpe Attending Clinician Unavail Reddy Richards MD Attending Clinician [phone] CHERYL HUGHES Attending Clinician Unavailable Cheryl Hughes MD Attending Clinician [phone] Elvie Gamboa Admitting Clinician Unavailable Samuel Mcguire Admitting Clinician Unavailable Luci Beyer Admitting Clinician Reddy Stephens MD Admitting Clinician [phone] REDDY SZYMANSKI Admitting Clinician Unavailable Payers Payer Name Policy Type Policy Number Effective Date Expirati on Date Source [employer] MED[employer]ARE [employer]VANTAGE [id number] 2020 00:00:00 [facility] [id number] 1999 00:00:00 Problems Condition Name Condition Details Condition Category Status Onset Date Resolution Date Last Treatment Date Treating Clinician Comments Source Fall from ladder, initial encounter Fall from ladder, initial encounter Disease Active 02-13 00:00: 00 [facility] Traumatic fracture of ribs with pneumothor ax, right, closed, initial encounter Traumatic fracture of ribs with pneumothor ax, right, closed, initial encounter Disease Active 02-13 00:00: 00 [facility] JERAMY (acute kidney injury) JERAMY (acute kidney injury) Disease Active 02-13 00:00: 00 [facility] Trauma Trauma Disease Active 02-10 00:00: 00 [facility] Allergies, Adverse Reactions, Alerts Allergy Name Allergy Type Status Severity Reaction(s) Onset Date Inactive Date Treating Clinician Comments Source Penicill ins DA Active U USE COMMENT BUTTON 03-03 00:00: 00 [facility] PENICILL IN DRUG INGREDI Active Unknown-Cmnt 02-10 00:00: 00 [facility] Penicill in Propensi ty to adverse reaction s Active Unknown - See comments 02-10 00:00: 00 [facility] Penicill in Propensi ty to adverse reaction s Active Unknown - See comments 02-10 00:00: 00 [facility] TOMATO DRUG INGREDI Active Swelling 2006-09 00:00: 00 [facility] Tomato Propensi ty to adverse reaction s Active Swelling 2006-09 00:00: 00 Tongue [facility] NO KNOWN ALLERGIE S Drug Class Active [facility] Social History Social Habit Start Date Stop Date Quantity Comments Source Sexual orientation U [facility] History of tobacco use Cigarette Smoker [facility] Exposure to SARS-CoV-2 (event) 2021-02-05 00:00:00 2021-03-07 08:25:00 Not sure [facility] History of Social function 2020-12-05 00:00:00 2020-12-05 00:00:00 [facility] Tobacco use and exposure 2020-02-11 00:00:00 2020-02-11 00:00:00 Smokeless tobacco non-user [facility] Sex Assigned At 1950 00:00:00 1950 00:00:00 [facility] Smoking Status Start Date Stop Date Source Unknown if ever smoked [facility] Ex-smoker 2020-10-06 00:00:00 2020-10-06 00:00:00 U [facility] Never smoked tobacco [facility] Medications Ordered Medication Name Filled Medication Name Start Date Stop Date Current Medication? Ordering Clinician Indication Dosage Frequency Signature (SIG) Comments Components Source tc 99m-tetrofo smin (MYOVIEW) injection 43.2 millicurie 12-14 15:45: 00 12-14 15:35 :00 No [id number] 43.2mCi 43.2 millicurie , Intravenou s, ONCE, 1 dose, Camilla 12/14/20 at 1045, Routine [facility] tc 99m-tetrofo smin (MYOVIEW) injection 16.3 millicurie 12-14 13:15: 00 12-14 13:07 :00 No [id number] 16.3mCi 16.3 millicurie , Intravenou s, ONCE, 1 dose, Camilla 12/14/20 at 0815, Routine [facility] lisinopriL 20 mg tablet 12-05 00:00: 00 Yes 20mg Take 1 tablet by mouth daily. [facility] magnesium chloride (SLOW-MAG) 71.5 mg tablet 12-05 00:00: 00 Yes [id number] 71.5mg Take 1 tablet by mouth daily. [facility] aspirin 81 mg chewable tablet 10-06 17:10: 53 Yes 81mg Take 81 mg by mouth daily. [facility] omeprazole 20 mg capsule 10-06 17:10: 53 Yes 20mg Take 20 mg by mouth daily. [facility] tamsulosin 0.4 mg 24 hr capsule 10-06 17:10: 53 Yes .4mg Take 0.4 mg by mouth daily. [facility] atorvastati n 10 mg tablet 10-06 17:10: 53 Yes 5mg Take 5 mg by mouth at bedtime. [facility] FLUoxetine 10 mg capsule 10-06 17:10: 53 Yes 10mg Take 10 mg by mouth daily. [facility] metFORMIN 500 mg 24 hr tablet 10-06 17:10: 40 10-06 00:00 :00 No 500mg Take 500 mg by mouth daily with breakfast. [facility] aspirin 81 mg chewable tablet 10-06 11:10: 53 Yes 81mg Take 81 mg by mouth daily. [facility] omeprazole 20 mg capsule 10-06 11:10: 53 Yes 20mg Take 20 mg by mouth daily. [facility] tamsulosin 0.4 mg 24 hr capsule 10-06 11:10: 53 Yes .4mg Take 0.4 mg by mouth daily. [facility] atorvastati n 10 mg tablet 10-06 11:10: 53 Yes 5mg Take 5 mg by mouth at bedtime. [facility] FLUoxetine 10 mg capsule 10-06 11:10: 53 Yes 10mg Take 10 mg by mouth daily. [facility] amLODIPine 10 mg tablet 09-26 00:00: 00 Yes [id number] 10mg Take 1 tablet by mouth daily. [facility] magnesium oxide (MAGOX) 400 mg (241.3 mg magnesium) tablet 1-19 00:00: 00 12-05 00:00 :00 No 400mg Take 1 tablet by mouth daily. [facility] metformin ER 500 mg 24 hr tablet 1-11 00:00: 00 03-07 00:00 :00 No TAKE TWO TABLETS BY MOUTH TWICE A DAY FOR DIABETES *DO NOT CRUSH* CHANGE IN FORMULATIO N [facility] AMLODIPINE 10 mg tablet 2019-09 2-08 00:00: 00 09-17 00:00 :00 No [id number] Take 1 tablet by mouth once daily [facility] magnesium oxide (MAGOX) 400 mg (241.3 mg magnesium) tablet 813 00:00: 00 09-17 00:00 :00 No 400mg Take 1 tablet by mouth daily. Call the office for more informatio n [facility] insulin aspart, niacinamide , 100 unit/mL (3 mL) InPn 04-13 00:00: 00 Yes INJECT 6 UNITS UNDER THE SKIN THREE TIMES A DAY 5 MINUTES BEFORE MEALS FOR DIABETES. DO NOT ADMINISTER IF A MEAL IS MISSED [facility] hydroCHLORO thiazide 25 mg tablet 03-24 00:00: 00 Yes [id number] 25mg Take 1 tablet by mouth daily. [facility] amLODIPine 10 mg tablet 03-24 00:00: 00 08-15 00:00 :00 No [id number] 10mg Take 1 tablet by mouth daily. [facility] docusate 100 mg capsule 02-17 00:00: 00 Yes [id number] 100mg Take 1 capsule by mouth daily. [facility] hydroCHLORO thiazide 12.5 mg capsule 02-17 00:00: 00 03-24 00:00 :00 No [id number] 12.5mg Take 1 capsule by mouth daily. [facility] amLODIPine 10 mg tablet 02-17 00:00: 00 03-23 00:00 :00 No [id number] 10mg Take 1 tablet by mouth daily. [facility] metFORMIN 500 mg 24 hr tablet 02-16 17:50: 22 Yes 500mg Take 500 mg by mouth daily with breakfast. [facility] aspirin 81 mg chewable tablet 02-16 17:50: 22 Yes 81mg Take 81 mg by mouth daily. [facility] omeprazole 20 mg capsule 02-16 17:50: 22 Yes 20mg Take 20 mg by mouth daily. [facility] tamsulosin 0.4 mg 24 hr capsule 02-16 17:50: 22 Yes .4mg Take 0.4 mg by mouth daily. [facility] atorvastati n 10 mg tablet 02-16 17:50: 22 Yes 5mg Take 5 mg by mouth at bedtime. [facility] FLUoxetine 10 mg capsule 02-16 17:50: 22 Yes 10mg Take 10 mg by mouth daily. [facility] hydroCHLORO thiazide 25 mg tablet 02-16 15:13: 33 02-16 00:00 :00 No 25mg Take 25 mg by mouth daily. [facility] lisinopril 20 mg tablet 02-16 15:13: 33 02-16 00:00 :00 No 20mg Take 20 mg by mouth daily. [facility] hydroCHLORO thiazide (ESIDRIX) capsule 12.5 mg 02-16 14:00: 00 Yes 12.5mg 12.5 mg, Oral, DAILY, First dose on Camilla 02/17/20 at 0900, Until Discontinu ed, Routine [facility] amLODIPine (NORVASC) tablet 10 mg 02-16 14:00: 00 Yes 10mg 10 mg, Oral, DAILY, First dose on [place] 02/17/20 at 0900, Until Discontinu ed, Routine [facility] FLUoxetine (PROZAC) capsule 10 mg 02-16 14:00: 00 Yes 10mg 10 mg, Oral, DAILY, First dose on [place] 02/17/20 at 0900, Until Discontinu ed, Routine [facility] insulin detemir U-100 (LEVEMIR U-100 INSULIN) injection 45 Units 02-16 02:00: 00 Yes 45U 45 Units, Subcutaneo us, QHS, First dose on Fri02/16/20 at 2100, Until Discontinu ed, Routine [facility] Sliding Scale Insulin - Aspart (NOVOLOG) + Fsbg Testing 02-16 01:00: 00 Yes Subcutaneo us, Q4H, First dose on Fri02/16/20 at 2000, Until Discontinu ed, Routine [facility] acetaminoph en 500 mg tablet 02-16 00:00: 00 Yes [id number] 1000mg Take 2 tablets by mouth every 8 (eight) hours as needed for Pain. [facility] methocarbam ol 500 mg tablet 02-16 00:00: 00 03-08 00:00 :00 No [id number] 500mg Take 1 tablet by mouth 4 (four) times daily as needed (muscle spasms). [facility] magnesium hydroxide (MILK OF MAGNESIA) 400 mg/5 mL suspension 30 mL 02-15 23:00: 00 02-16 00:32 :00 No 30mL 30 mL, Oral, ONCE, 1 dose, Fri02/16/20 at 1800, Routine [facility] bisacodyL (DULCOLAX) suppository 10 mg 02-15 21:30: 00 Yes 10mg 10 mg, Rectal, BID, First dose on Fri02/16/20 at 1630, Until Discontinu ed, Routine [facility] Sliding Scale Insulin - Aspart (NOVOLOG) + Fsbg Testing 02-15 17:00: 00 02-15 21:27 :26 No Subcutaneo us, Q4H, First dose on Fri02/16/20 at 1200, Until Discontinu ed, Routine [facility] Polyethylen e Glycol 3350 (MIRALAX) powder 17 g 02-15 13:15: 00 Yes 17g 17 g, Oral, BID, First dose on Fri02/16/20 at 0815, Until Discontinu ed, [facility] D[facility] 0.[facility]% NaCl (1/2NS) 1 L + KCL 20 mEq 02-15 11:00: 00 02-15 12:13 :20 No IV Infusion, at 20 mL/hr, CONTINUOUS , Starting Fri02/16/20 at 0600, Until Fri02/16/20 at 0713, Routine [facility] amLODIPine (NORVASC) tablet 5 mg 02-14 14:00: 00 02-16 11:43 :37 No 5mg 5 mg, Oral, DAILY, First dose on Fri02/15/20 at 0900, Until Discontinu ed, Routine [facility] D5W 0.45% NaCl (1/2NS) 1 L + KCL 20 mEq 02-14 12:45: 00 02-15 10:48 :43 No IV Infusion, at 100 mL/hr, CONTINUOUS , Starting Fri02/15/20 at 0745, Until Fri02/16/20 at 0548, Routine [facility] lactated ringers IV infusion 500 mL 02-13 16:30: 00 02-13 16:08 :00 No 500mL at 999 mL/hr, 500 mL, Intravenou s, ONCE, 1 dose, Fri02/14/20 at 1130, Routine [facility] tamsulosin (FLOMAX) capsule 0.4 mg 02-13 14:00: 00 Yes .4mg 0.4 mg, Oral, DAILY, First dose on Fri02/14/20 at 0900, Until Discontinu ed, Routine [facility] omeprazole (PRILOSEC) capsule 20 mg 02-13 14:00: 00 Yes 20mg 20 mg, Oral, DAILY, First dose on Fri02/14/20 at 0900, Until Discontinu ed, Routine [facility] aspirin chewable tablet 81 mg 02-13 14:00: 00 Yes 81mg 81 mg, Oral, DAILY, First dose on Fri02/14/20 at 0900, Until Discontinu ed, Routine [facility] lactated ringers IV infusion 500 mL 02-13 03:15: 02-13 02:09 :00 No 500mL at 999 mL/hr, 500 mL, Intravenou s, ONCE, 1 dose, 02/13/20 at 2215, [facility] atorvastati n (LIPITOR) tablet 5 mg 02-13 02:00: 00 Yes 5mg 5 mg, Oral, QHS, First dose on 02/13/20 at 2100, Until Discontinu ed, Routine [facility] lactated ringers IV infusion 1,000 mL 02-12 19:15: 00 02-12 18:24 :00 No 1000mL at 999 mL/hr, 1,000 mL, Intravenou s, ONCE, 1 dose, [place] 02/13/20 at 1415, Routine [facility] bisacodyL (DULCOLAX) suppository 10 mg 02-12 19:15: 00 02-12 19:44 :00 No 10mg 10 mg, Rectal, ONCE NOW, 1 dose, [place] 02/13/20 at 1415, [facility] on[facility] (ZOFRAN (PF)) injection 4 mg 02-12 15:36: 56 Yes 4mg 4 mg, Slow IV Push, Q6HPRN, Starting 02/13/20 at 1036, Until Discontinu ed, Routine, Nausea and Vomiting (N/V) [facility] docusate (COLACE) capsule 100 mg 02-11 14:00: 00 Yes 100mg 100 mg, Oral, DAILY, First dose on Fri02/12/20 at 0900, Until Discontinu ed, Routine [facility] methocarbam ol (ROBAXIN) tablet 500 mg 02-11 01:00: 00 Yes 500mg 500 mg, Oral, QID, First dose on Fri02/11/20 at 2000, Until Discontinu ed, Routine [facility] gabapentin (NEURONTIN) capsule 100 mg 02-11 01:00: 00 02-13 13:29 :41 No 100mg 100 mg, Oral, TID, First dose on Fri02/11/20 at 2000, Until Discontinu ed, Routine [facility] morpHINE 30 mg/30 mL (fixed dose) [employer] injection 02-10 23:15: 00 02-12 18:59 :51 No [facility] acetaminoph en (TYLENOL) tablet 1,000 mg 02-10 23:00: 00 Yes 1000mg 1,000 mg, Oral, Q6H, First dose on Fri02/11/20 at 1800, Until Discontinu ed, Routine [facility] Sliding Scale Insulin - Aspart (NOVOLOG) + Fsbg Testing 02-10 22:00: 00 02-15 13:15 :25 No Subcutaneo us, TID MEALS+HS, First dose on Fri02/11/20 at 1700, Until Discontinu ed, Routine [facility] celecoxib (CELEBREX) capsule 100 mg 02-10 22:00: 00 02-12 18:06 :55 No 100mg 100 mg, Oral, BID MEALS, First dose on Fri02/11/20 at 1700, Until Discontinu ed, Routine [facility] FENTanyl PF (SUBLIMAZE (PF)) injection 100 mcg 02-10 21:45: 00 02-10 20:31 :00 No 100ug 100 mcg, Slow IV Push, ONCE, 1 dose, Fri02/11/20 at 1645, STAT [facility] FENTanyl PF (SUBLIMAZE (PF)) injection 75 mcg 02-10 19:00: 00 02-10 17:52 :00 No 75ug 75 mcg, Slow IV Push, ONCE, 1 dose, Fri02/11/20 at 1400, STAT [facility] FENTanyl PF (SUBLIMAZE (PF)) injection 75 mcg 02-10 18:45: 00 02-10 17:37 :00 No 75ug 75 mcg, Slow IV Push, ONCE, 1 dose, Fri02/11/20 at 1345, STAT [facility] ceFAZolin (ANCEF) 1,000 mg in NaCl 0.9% (NS) 50 mL MINI-BAG 02-10 18:45: 00 02-10 18:06 :00 No 1000mg 1,000 mg, IV Piggyback, ONCE, 1 dose, 02/11/20 at 1345, 50 mL
Reas on for Anti-Infec tive: Surgical Prophylaxi s
Surgi arely Prophylaxi s: Cardiothor acic
Du ration of therapy: within 24 hours of surgery [facility] ondansetron (ZOFRAN (PF)) injection 4 mg 02-10 18:15: 00 02-10 17:05 :00 No 4mg 4 mg, Slow IV Push, ONCE, 1 dose, 02/11/20 at 1315, DANNY [facility] FENTanyl PF (SUBLIMAZE (PF)) injection 75 mcg 02-10 18:15: 00 02-10 17:04 :00 No 75ug 75 mcg, Slow IV Push, ONCE, 1 dose, 02/11/20 at 1315, Routine [facility] iohexol (OMNIPAQUE 350 BULK-150 mL) injection 120 mL 02-10 17:45: 00 02-10 17:32 :00 No 120mL 120 mL, Intravenou s, ONCE, 1 dose, 02/11/20 at 1245, Routine [facility] contrast previously administere d 0 mL 02-10 17:45: 00 02-10 17:32 :00 No Intravenou s, ONCE, 1 dose, 02/11/20 at 1245, Routine [facility] Immunizations Ordered Immunization Name Filled Immunization Name Date Status Comments Source SARS-COV-2 COVID-19 PFIZER VACCINE 2020-11-14 00:00:00 Completed [facility] SARS-COV-2 COVID-19 PFIZER VACCINE 2020-11-14 00:00:00 Completed [facility] SARS-COV-2 COVID-19 PFIZER VACCINE 2020-11-14 00:00:00 Completed [facility] SARS-COV-2 COVID-19 PFIZER VACCINE 2020-11-14 00:00:00 Completed [facility] SARS-COV-2 COVID-19 PFIZER VACCINE 2020-11-14 00:00:00 Completed [facility] SARS-COV-2 COVID-19 PFIZER VACCINE 2020-11-14 00:00:00 Completed [facility] SARS-COV-2 COVID-19 PFIZER VACCINE 2020-11-14 00:00:00 Completed [facility] SARS-COV-2 COVID-19 PFIZER VACCINE 2020-11-14 00:00:00 Completed [facility] SARS-COV-2 COVID-19 PFIZER VACCINE 2020-11-14 00:00:00 Completed [facility] SARS-COV-2 COVID-19 PFIZER VACCINE 2020-11-14 00:00:00 Completed [facility] Influenza High Dose 2020-06-22 00:00:00 Completed [facility] Influenza High Dose 2020-06-22 00:00:00 Completed [facility] Influenza High Dose 2020-06-22 00:00:00 Completed [facility] Influenza High Dose 2020-06-22 00:00:00 Completed [facility] Influenza High Dose 2020-06-22 00:00:00 Completed [facility] Influenza High Dose 2020-06-22 00:00:00 Completed [facility] Influenza High Dose 2020-06-22 00:00:00 Completed [facility] Influenza High Dose 2020-06-22 00:00:00 Completed [facility] Influenza High Dose 2020-06-22 00:00:00 Completed [facility] Influenza High Dose 2020-06-22 00:00:00 Completed [facility] Influenza High Dose 2020-06-22 00:00:00 Completed [facility] Influenza High Dose 2020-06-22 00:00:00 Completed [facility] Influenza High Dose 2020-06-22 00:00:00 Completed [facility] Influenza High Dose 2020-06-22 00:00:00 Completed [facility] Pneumococcal Polysaccharide, PPSV23 (PNEUMOVAX) 2019-03-17 00:00:00 Completed [facility] Pneumococcal Polysaccharide, PPSV23 (PNEUMOVAX) 2019-03-17 00:00:00 Completed [facility] Pneumococcal Polysaccharide, PPSV23 (PNEUMOVAX) 2019-03-17 00:00:00 Completed [facility] Pneumococcal Polysaccharide, PPSV23 (PNEUMOVAX) 2019-03-17 00:00:00 Completed [facility] Pneumococcal Polysaccharide, PPSV23 (PNEUMOVAX) 2019-03-17 00:00:00 Completed [facility] Pneumococcal Polysaccharide, PPSV23 (PNEUMOVAX) 2019-03-17 00:00:00 Completed [facility] Pneumococcal Polysaccharide, PPSV23 (PNEUMOVAX) 2019-03-17 00:00:00 Completed [facility] Pneumococcal Polysaccharide, PPSV23 (PNEUMOVAX) 2019-03-17 00:00:00 Completed [facility] Pneumococcal Polysaccharide, PPSV23 (PNEUMOVAX) 2019-03-17 00:00:00 Completed [facility] Pneumococcal Polysaccharide, PPSV23 (PNEUMOVAX) 2019-03-17 00:00:00 Completed [facility] Pneumococcal Polysaccharide, PPSV23 (PNEUMOVAX) 2019-03-17 00:00:00 Completed [facility] Pneumococcal Polysaccharide, PPSV23 (PNEUMOVAX) 2019-03-17 00:00:00 Completed [facility] Pneumococcal Polysaccharide, PPSV23 (PNEUMOVAX) 2019-03-17 00:00:00 Completed [facility] Pneumococcal Polysaccharide, PPSV23 (PNEUMOVAX) 2019-03-17 00:00:00 Completed [facility] Pneumococcal 13 Conjugate, PCV13 (Prevnar 13) 2017-11-18 00:00:00 Completed [facility] Pneumococcal 13 Conjugate, PCV13 (Prevnar 13) 2017-11-18 00:00:00 Completed [facility] Pneumococcal 13 Conjugate, PCV13 (Prevnar 13) 2017-11-18 00:00:00 Completed [facility] Pneumococcal 13 Conjugate, PCV13 (Prevnar 13) 2017-11-18 00:00:00 Completed [facility] Pneumococcal 13 Conjugate, PCV13 (Prevnar 13) 2017-11-18 00:00:00 Completed [facility] Pneumococcal 13 Conjugate, PCV13 (Prevnar 13) 2017-11-18 00:00:00 Completed [facility] Pneumococcal 13 Conjugate, PCV13 (Prevnar 13) 2017-11-18 00:00:00 Completed [facility] Pneumococcal 13 Conjugate, PCV13 (Prevnar 13) 2017-11-18 00:00:00 Completed [facility] Pneumococcal 13 Conjugate, PCV13 (Prevnar 13) 2017-11-18 00:00:00 Completed [facility] Pneumococcal 13 Conjugate, PCV13 (Prevnar 13) 2017-11-18 00:00:00 Completed [facility] Influenza High Dose 2017-06-27 00:00:00 Completed [facility] Influenza High Dose 2017-06-27 00:00:00 Completed [facility] Influenza High Dose 2017-06-27 00:00:00 Completed [facility] Influenza High Dose 2017-06-27 00:00:00 Completed [facility] Influenza High Dose 2017-06-27 00:00:00 Completed [facility] Influenza High Dose 2017-06-27 00:00:00 Completed [facility] Influenza High Dose 2017-06-27 00:00:00 Completed [facility] Influenza High Dose 2017-06-27 00:00:00 Completed [facility] Influenza High Dose 2017-06-27 00:00:00 Completed [facility] Influenza High Dose 2017-06-27 00:00:00 Completed [facility] Influenza Virus Vaccine 2015-06-28 00:00:00 Completed [facility] Influenza Virus Vaccine (3+ yrs) 2015-06-28 00:00:00 Completed [facility] Influenza Virus Vaccine 2015-06-28 00:00:00 Completed [facility] Influenza Virus Vaccine (3+ yrs) 2015-06-28 00:00:00 Completed [facility] Influenza Virus Vaccine 2015-06-28 00:00:00 Completed [facility] Influenza Virus Vaccine (3+ yrs) 2015-06-28 00:00:00 Completed [facility] Influenza Virus Vaccine 2015-06-28 00:00:00 Completed [facility] Influenza Virus Vaccine (3+ yrs) 2015-06-28 00:00:00 Completed [facility] Influenza Virus Vaccine 2015-06-28 00:00:00 Completed [facility] Influenza Virus Vaccine (3+ yrs) 2015-06-28 00:00:00 Completed [facility] Influenza Virus Vaccine 2015-06-28 00:00:00 Completed [facility] Influenza Virus Vaccine (3+ yrs) 2015-06-28 00:00:00 Completed [facility] Influenza Virus Vaccine 2015-06-28 00:00:00 Completed [facility] Influenza Virus Vaccine (3+ yrs) 2015-06-28 00:00:00 Completed [facility] Influenza Virus Vaccine 2015-06-28 00:00:00 Completed [facility] Influenza Virus Vaccine (3+ yrs) 2015-06-28 00:00:00 Completed [facility] Influenza Virus Vaccine 2015-06-28 00:00:00 Completed [facility] Influenza Virus Vaccine (3+ yrs) 2015-06-28 00:00:00 Completed [facility] Influenza Virus Vaccine 2015-06-28 00:00:00 Completed [facility] Influenza Virus Vaccine (3+ yrs) 2015-06-28 00:00:00 Completed [facility] TDAP 2013-06-23 00:00:00 Completed [facility] TDAP 2013-06-23 00:00:00 Completed [facility] TDAP 2013-06-23 00:00:00 Completed [facility] TDAP 2013-06-23 00:00:00 Completed [facility] TDAP 2013-06-23 00:00:00 Completed [facility] TDAP 2013-06-23 00:00:00 Completed [facility] TDAP 2013-06-23 00:00:00 Completed [facility] TDAP 2013-06-23 00:00:00 Completed [facility] TDAP 2013-06-23 00:00:00 Completed [facility] TDAP 2013-06-23 00:00:00 Completed [facility] Zoster(Zostavax)( ingles) 2012-06-03 00:00:00 Completed [facility] Zoster(Zostavax)( ingles) 2012-06-03 00:00:00 Completed [facility] Zoster(Zostavax)( ingles) 2012-06-03 00:00:00 Completed [facility] Zoster(Zostavax)( ingles) 2012-06-03 00:00:00 Completed [facility] Zoster(Zostavax)( ingles) 2012-06-03 00:00:00 Completed [facility] Zoster(Zostavax)( arash) 2012-06-03 00:00:00 Completed [facility] Zoster(Zostavax)([facility]) 2012-06-03 00:00:00 Completed [facility] Zoster(Zostavax)([facility]) 2012-06-03 00:00:00 Completed [facility] Zoster(Zostavax)( arash) 2012-06-03 00:00:00 Completed [facility] Zoster(Zostavax)([facility]) 2012-06-03 00:00:00 Completed [facility] Influenza Virus Vaccine 2005-06-26 00:00:00 Completed [facility] Influenza Virus Vaccine 2005-06-26 00:00:00 Completed [facility] Influenza Virus Vaccine 2005-06-26 00:00:00 Completed [facility] Influenza Virus Vaccine 2005-06-26 00:00:00 Completed [facility] Influenza Virus Vaccine 2005-06-26 00:00:00 Completed [facility] Influenza Virus Vaccine 2005-06-26 00:00:00 Completed [facility] Influenza Virus Vaccine 2005-06-26 00:00:00 Completed [facility] Influenza Virus Vaccine 2005-06-26 00:00:00 Completed [facility] Influenza Virus Vaccine 2005-06-26 00:00:00 Completed [facility] Influenza Virus Vaccine 2005-06-26 00:00:00 Completed [facility] Influenza Virus Vaccine - Whole 1999-07-10 00:00:00 Completed [facility] Influenza Virus Vaccine - Whole 1999-07-10 00:00:00 Completed [facility] Influenza Virus Vaccine - Whole 1999-07-10 00:00:00 Completed [facility] Influenza Virus Vaccine - Whole 1999-07-10 00:00:00 Completed [facility] Influenza Virus Vaccine - Whole 1999-07-10 00:00:00 Completed [facility] Influenza Virus Vaccine - Whole 1999-07-10 00:00:00 Completed [facility] Influenza Virus Vaccine - Whole 1999-07-10 00:00:00 Completed [facility] Influenza Virus Vaccine - Whole 1999-07-10 00:00:00 Completed [facility] Influenza Virus Vaccine - Whole 1999-07-10 00:00:00 Completed [facility] Influenza Virus Vaccine - Whole 1999-07-10 00:00:00 Completed [facility] Tetanus/Diptheria 1999-04-19 00:00:00 Completed [facility] DTP 1999-04-19 00:00:00 Completed [facility] Tetanus/Diptheria 1999-04-19 00:00:00 Completed [facility] DTP 1999-04-19 00:00:00 Completed [facility] Tetanus/Diptheria 1999-04-19 00:00:00 Completed [facility] DTP 1999-04-19 00:00:00 Completed [facility] Tetanus/Diptheria 1999-04-19 00:00:00 Completed [facility] DTP 1999-04-19 00:00:00 Completed [facility] Tetanus/Diptheria 1999-04-19 00:00:00 Completed [facility] DTP 1999-04-19 00:00:00 Completed [facility] Tetanus/Diptheria 1999-04-19 00:00:00 Completed [facility] DTP 1999-04-19 00:00:00 Completed [facility] Tetanus/Diptheria 1999-04-19 00:00:00 Completed [facility] DTP 1999-04-19 00:00:00 Completed [facility] Tetanus/Diptheria 1999-04-19 00:00:00 Completed [facility] DTP 1999-04-19 00:00:00 Completed [facility] Tetanus/Diptheria 1999-04-19 00:00:00 Completed [facility] DTP 1999-04-19 00:00:00 Completed [facility] Tetanus/Diptheria 1999-04-19 00:00:00 Completed [facility] DTP 1999-04-19 00:00:00 Completed [facility] Influenza High Dose Unknown Completed [facility] Pneumococcal Polysaccharide, PPSV23 (PNEUMOVAX) Unknown Completed [facility] Zoster(Zostavax)(Sh ingles) Unknown Completed [facility] Tetanus/Diptheria Unknown Completed Un [facility] TDAP Unknown Completed [facility] Pneumococcal 13 Conjugate, PCV13 (Prevnar 13) Unknown Completed [facility] Influenza Virus Vaccine - Whole Unknown Completed [facility] SARS-COV-2 COVID-19 PFIZER VACCINE Unknown Completed [facility] DTP Unknown Completed [facility] Influenza Virus Vaccine Unknown Completed [facility] Influenza High Dose Unknown Completed [facility] Pneumococcal Polysaccharide, PPSV23 (PNEUMOVAX) Unknown Completed [facility] Zoster(Zostavax)(Sh ingles) Unknown Completed [facility]anus[facility]Diptheria Unknown [facility] Pneumococcal 13 Conjugate, PCV13 (Prevnar 13) Unknown Completed [facility] Influenza Virus Vaccine - Whole Unknown Completed [facility] SARS-COV-2 COVID-19 PFIZER VACCINE Unknown Completed [facility] DTP Unknown Completed [facility] Influenza Virus Vaccine Unknown Completed [facility] Influenza High Dose Unknown Completed [facility] Pneumococcal Polysaccharide, PPSV23 (PNEUMOVAX) Unknown Completed [facility] Zoster(Zostavax)(Sh ingles) Unknown Completed [facility] Tetanus/Diptheria Unknown [facility] Completed [facility] Pneumococcal 13 Conjugate, PCV13 (Prevnar 13) Unknown Completed [facility] Influenza Virus Vaccine - Whole Unknown Completed [facility] SARS-COV-2 COVID-19 PFIZER VACCINE Unknown Completed [facility] DTP Unknown Completed [facility] Influenza Virus Vaccine Unknown Completed [facility] Influenza High Dose Unknown Completed [facility] Pneumococcal Polysaccharide, PPSV23 (PNEUMOVAX) Unknown Completed [facility] Zoster(Zostavax)(Sh ingles) Unknown Completed [facility] Tetanus/Diptheria Unknown [facility] Completed [facility] Pneumococcal 13 Conjugate, PCV13 (Prevnar 13) Unknown Completed [facility] Influenza Virus Vaccine - Whole Unknown Completed [facility] DTP Unknown Completed [facility] Influenza Virus Vaccine Unknown Completed [facility] Vital Signs Vital Name Observation Time Observation Value Comments S ource Systolic blood pressure 2021-03-07 13:45:00 132 mm[Hg] [facility] Diastolic blood pressure 2021-03-07 13:45:00 73 mm[Hg] [facility] Heart rate 2021-03-07 13:45:00 54 /min Unive [facility] Body temperature 2021-03-07 13:44:00 35.67 Suze [facility] Body height 2021-03-07 13:44:00 170.2 cm [facility] weight 2021-03-07 13:44:00 81.693 kg Univ [facility] BMI 2021-03-07 13:44:00 28.21 kg/m2 Univ [facility] Oxygen saturation in Arterial blood by Pulse oximetry 2021-03-07 13:44:00 97 /min [facility] Systolic blood pressure 2020-12-05 18:53:00 120 mm[Hg] [facility] Diastolic blood pressure 2020-12-05 18:53:00 72 mm[Hg] [facility] Heart rate 2020-12-05 18:53:00 67 /min Unive [facility] Body temperature 2020-12-05 18:51:00 36.06 Suze [facility] Body height 2020-12-05 18:51:00 170.2 cm Univ [facility] Body weight 2020-12-05 18:51:00 80.786 kg [facility] BMI 2020-12-05 18:51:00 27.89 kg/m2 Univ [facility] Oxygen saturation in Arterial blood by Pulse oximetry 2020-12-05 18:51:00 96 /min [facility] Systolic blood pressure 2020-10-06 17:23:00 131 mm[Hg] [facility] Diastolic blood pressure 2020-10-06 17:23:00 72 mm[Hg] [facility] Heart rate 2020-10-06 17:23:00 62 /min Unive [facility] Respiratory rate 2020-10-06 17:13:00 19 /min [facility] Body height 2020-10-06 17:13:00 170.2 cm Univ [facility] Body weight 2020-10-06 17:13:00 82.872 kg [facility] BMI 2020-10-06 17:13:00 28.61 kg/m2 [facility] Oxygen saturation in Arterial blood by Pulse oximetry 2020-10-06 17:13:00 95 /min [facility] Systolic blood pressure 2020-02-29 20:25:00 178 mm[Hg] [facility] Diastolic blood pressure 2020-02-29 20:25:00 64 mm[Hg] [facility] Heart rate 2020-02-29 20:25:00 71 /min [facility] Body temperature 2020-02-29 20:25:00 36.83 Suze [facility] Respiratory rate 2020-02-29 20:25:00 18 /min [facility] Body weight 2020-02-29 20:25:00 81.375 kg [facility] BMI 2020-02-29 20:25:00 24.33 kg/m2 [facility] Systolic blood pressure 2020-02-17 12:41:00 181 mm[Hg] [facility] Diastolic blood pressure 2020-02-17 12:41:00 68 mm[Hg] [facility] Heart rate 2020-02-17 12:41:00 49 /min [facility] Body temperature 2020-02-17 12:41:00 36.17 Suze [facility] Respiratory rate 2020-02-17 12:41:00 16 /min [facility] Oxygen saturation in Arterial blood by Pulse oximetry 2020-02-17 12:41:00 94 /min [facility] Body height 2020-02-11 20:19:32 182.9 cm [facility] Body weight 2020-02-11 20:18:27 81.647 kg [facility] BMI 2020-02-11 20:18:27 24.41 kg/m2 [facility] Systolic blood pressure 2020-02-11 19:00:00 92 mm[Hg] [facility] Diastolic blood pressure 2020-02-11 19:00:00 55 mm[Hg] [facility] Heart rate 2020-02-11 19:00:00 78 /min [facility] Body temperature 2020-02-11 19:00:00 36.17 Suze [facility] Respiratory rate 2020-02-11 19:00:00 19 /min [facility] Oxygen saturation in Arterial blood by Pulse oximetry 2020-02-11 19:00:00 95 /min [facility] Body weight 2020-02-11 16:55:35 81.647 kg [facility] BMI 2020-02-11 16:55:35 28.19 kg/m2 [facility] Body height 2020-02-11 06:55:00 170.2 cm [facility] Procedures Procedure Date / Time Performed Performing Clinician Source [id number] 2023-04-17 00:00:00 KYRPO [facility] [id number] 2023-04-17 00:00:00 KYRPO [facility] [id number] 2023-03-04 00:00:00 CHAAB.01 [facility] [id number] 2023-03-04 00:00:00 CHAAB.01 [facility] [id number] 2023-03-04 00:00:00 CHAAB.01 [facility] [id number] 2023-03-04 00:00:00 CHAAB.01 [facility] [id number] 2023-03-04 00:00:00 CHAAB.01 [facility] [id number] 2023-03-04 00:00:00 CHAAB.01 [facility] [id number] 2023-03-04 00:00:00 CHAAB.01 [facility] [id number] 2023-03-04 00:00:00 CHAAB.01 [facility] [id number] 2023-03-04 00:00:00 CHAAB.01 [facility] [id number] 2023-03-04 00:00:00 CHAAB.01 [facility] FL ELECTROCARDIOGRAM, COMPLETE 2020-10-06 17:23:45 Ryan Christianson [facility] ASSIGNMENT OF BENEFITS 2020-02-29 20:10:25 Docto r Unassigned, [place] [facility] POCT GLUCOSE (AUTOMATED) 2020-02-17 12:38:00 [facility] BASIC METABOLIC PANEL (NA, K, CL, CO2, GLUCOSE, BUN, CREATININE, CA) 2020-02-17 09:08:00 Sathya Cardoso [facility] CBC WITH DIFFERENTIAL 2020-02-17 09:08:00 Arely Cardoso [facility] POCT GLUCOSE (AUTOMATED) 2020-02-17 09:03:00 [facility] CHEST 1 VW 2020-02-17 08:38:31 Luís Tatum [facility] POCT GLUCOSE (AUTOMATED) 2020-02-17 05:33:00 Person, Omaira [facility] POCT GLUCOSE (AUTOMATED) 2020-02-17 01:55:00 Person, Omaira [facility] POCT GLUCOSE (AUTOMATED) 2020-02-17 01:04:00 Person, Omaira [facility] POCT GLUCOSE (AUTOMATED) 2020-02-16 21:06:00 Person, Omaira [facility] POCT GLUCOSE (AUTOMATED) 2020-02-16 16:40:00 Person, Omaira [facility] TROPONIN I 2020-02-16 12:17:00 Cole Rivas [facility] BASIC METABOLIC PANEL (NA, K, CL, CO2, GLUCOSE, BUN, CREATININE, CA) 2020-02-16 10:29:00 Sathya Cardoso [facility] CBC WITH DIFFERENTIAL 2020-02-16 10:29:00 Arely Cardoso [facility] GLYCOSYLATED HEMOGLOBIN (A1C) 2020-02-16 10:29:00 Luís Tatum [facility] XR CHEST 1 VW 2020-02-16 09:56:25 Mckenzie Zavala [facility] POCT GLUCOSE (AUTOMATED) 2020-02-16 05:03:00 [facility]SE ([facility]OMATED) 2020-02-16 02:07:00 Person, Omaira [facility] POCT GLUCOSE (AUTOMATED) 2020-02-15 22:35:00 Person, Omaira [facility] POCT GLUCOSE (AUTOMATED) 2020-02-15 13:12:00 [facility], [facility] US RETROPERITONEAL COMPLETE 2020-02-15 09:33:19 Benoit Laboy [facility] BASIC METABOLIC PANEL (NA, K, CL, CO2, GLUCOSE, BUN, CREATININE, CA) 2020-02-15 09:18:00 Sathya Cardoso [facility] CBC WITH DIFFERENTIAL 2020-02-15 09:18:00 Arely Cardoso [facility] XR CHEST 1 VW 2020-02-15 09:15:00 Jose Brantley Luís [facility] SODIUM URINE 2020-02-15 05:02:00 German Ramírez [facility] POCT GLUCOSE (AUTOMATED) 2020-02-15 01:56:00 Person, Omaira [facility] URINALYSIS 2020-02-15 00:50:00 Jose Brantley [facility] POCT GLUCOSE (AUTOMATED) 2020-02-14 23:01:00 Person, Omaira [facility] POCT GLUCOSE (AUTOMATED) 2020-02-14 22:20:00 Person, mOaira [facility] XR CHEST 1 VW 2020-02-14 21:26:14 Magalis [facility] POCT GLUCOSE (AUTOMATED) 2020-02-14 12:58:00 Person, Omaira [facility] BASIC METABOLIC PANEL (NA, K, CL, CO2, GLUCOSE, BUN, CREATININE, CA) 2020-02-14 08:59:00 Sathya Cardoso [facility] CBC WITH DIFFERENTIAL 2020-02-14 08:59:00 Arely Cardoso [facility] XR CHEST 1 VW 2020-02-14 08:01:53 Jose Brantley [facility] CREATININE, URINE RANDOM 2020-02-14 04:54:00 German Hood [facility] POTASSIUM, URINE RANDOM 2020-02-14 04:54:00 Trip Brantley [facility] SODIUM, URINE RANDOM 2020-02-14 04:54:00 Jose Brantley [facility] CHLORIDE, URINE RANDOM 2020-02-14 04:54:00 Bonnie Brantley [facility] POCT GLUCOSE (AUTOMATED) 2020-02-14 01:53:00 Person, Omaira [facility] BASIC METABOLIC PANEL (NA, K, CL, CO2, GLUCOSE, BUN, CREATININE, CA) 2020-02-14 00:32:00 Jose Brantley [facility] POCT GLUCOSE (AUTOMATED) 2020-02-13 22:31:00 Person, Omaira [facility] POCT GLUCOSE (AUTOMATED) 2020-02-13 17:48:00 Person, Omaira [facility] BASIC METABOLIC PANEL (NA, K, CL, CO2, GLUCOSE, BUN, CREATININE, CA) 2020-02-13 15:29:00 Sathya Cardoso [facility] CBC WITH DIFFERENTIAL 2020-02-13 15:29:00 [facility] nba [facility] POCT GLUCOSE (AUTOMATED) 2020-02-13 14:46:00 Person, Omaira [facility] XR CHEST 1 VW 2020-02-13 08:43:00 Jose Brantley [facility] POCT GLUCOSE (AUTOMATED) 2020-02-13 02:39:00 Person, Omaira [facility] POCT GLUCOSE (AUTOMATED) 2020-02-12 18:52:00 Person, Omaira [facility] POCT GLUCOSE (AUTOMATED) 2020-02-12 13:35:00 [facility] PHOSPHORUS 2020-02-12 09:55:00 Sathya Cardoso [facility] BASIC METABOLIC PANEL (NA, K, CL, CO2, GLUCOSE, BUN, CREATININE, CA) 2020-02-12 09:55:00 Sathya Cardoso [facility] CBC WITH DIFFERENTIAL 2020-02-12 09:55:00 Arely Cardoso [facility] XR CHEST 1 VW 2020-02-12 08:51:55 Luís Tatum [facility] POCT GLUCOSE (AUTOMATED) 2020-02-12 03:54:00 PersonOmaira [facility] POCT GLUCOSE (AUTOMATED) 2020-02-12 02:32:00 Person, Omaira [facility] CRITICAL CARE 2020-02-11 21:34:22 Saul [facility] XR CHEST 1 VW 2020-02-11 20:55:40 Sathya Cardoso [facility] XR CHEST 1 VW 2020-02-11 [facility]:24[facility] 2020-02-11 [facility]40[facility] ABDOMEN PELVIS W CONTRAST 2020-02-11 17:40:51 [facility] HEAD WO CONTRAST 2020-02-11 17:39:21 [facility] CT TRAUMA CERVICAL SPINE WO CONTRAST 2020-02-11 17:39:21 [facility] CT TRAUMA THORACIC SPINE WO CONTRAST 2020-02-11 17:39:21 [facility] CT TRAUMA LUMBAR SPINE WO CONTRAST 2020-02-11 17:39:21 [facility] 1 VW 2020-02-11 17:14:51 Saul [facility] COVID-19 (ID NOW RAPID TESTING) 2020-02-11 17:08:00 Saul [facility] LIPASE 2020-02-11 17:01:00 Cheryl Hughes [facility] TROPONIN I 2020-02-11 17:01:00 Cheryl Hughes [facility] HEPATIC FUNCTION PANEL (21994) (ALB,T.PRO,BILI T,BU/BC,ALT,AST,ALK PHOS) 2020-02-11 17:01:00 [facility] BASIC METABOLIC PANEL (NA, K, CL, CO2, GLUCOSE, BUN, CREATININE, CA) 2020-02-11 17:01:00 Cheryl Hughes [facility] CBC WITH DIFFERENTIAL 2020-02-11 17:01:00 Jnoi Hughes [facility] PROTHROMBIN TIME / INR 2020-02-11 17:01:00 Boyd Hughes [facility] ACTIVATED PARTIAL THRMPLAS SANJUANITA 2020-02-11 17:01:00 Cheryl Hughes [facility] EKG-12 LEAD 2020-02-11 16:57:27 Cheryl Hughes [facility] Encounters Start Date/Time End Date/Time Encounter Type Admission Type Attending Clinicians Care Facility Care Department Encounter ID Source 2023-04-08 10:53:00 Inpatient HCACL LAUREANO [id number] 2023-04-08 16:50:00 2023-04-19 16:02:00 Inpatient SHAGGY Magaña Rojeilo [facility] MEDI.01 [id number] 97 [facility] 2023-03-19 14:09:00 2023-03-19 14:09:00 Outpatient Samuel Harp [facility] RADI [id number] 70 [facility] 2023-03-03 18:32:00 2023-03-13 16:01:00 Inpatient Samia Beltran [facility] INTE [id number] [facility] 2021-06-07 08:30:00 2021-06-07 08:30:00 Outpatient AYSE RODRIGUEZ [facility] [id number] [facility] 2021-06-04 09:00:00 2021-06-04 09:00:00 Outpatient AYSE RODRIGUEZ [facility] [id number] [facility] 2021-03-16 00:00:00 2021-03-16 00:00:00 Telephone Ayse Gonzales [facility] [id number] 350.1.13.10 [id number] [id number] [facility] 2021-03-16 00:00:00 2021-03-16 00:00:00 Patient Secure [facility] [id number] 350.1.13.10 4.2.7.2.686 [id number] [facility] 2021-03-07 09:13:33 2021-03-07 09:28:33 Ion Exchange Operator Visit Vtc[facility] 1.840.114 350.1.13.10 4.2.7.2.686 [id number] [facility] 2021-03-07 08:27:54 2021-03-07 09:14:25 Office Visit [facility] 1.840.114 350.1.13.10 4.2.7.2.686 [id number] [facility] 2021-03-07 09:00:00 2021-03-07 09:00:00 Outpatient R CHRISTIAN AYSE [facility] [id number] [facility] 2021-03-02 08:00:00 2021-03-02 08:00:00 Outpatient R CHRISTIAN AYSE [facility] [id number] [facility] 2021-02-28 00:00:00 2021-02-28 00:00:00 Telephone [facility] 1.0.114 350.1.13.10 4.2.7.2.686 [id number] [facility] 2020-12-25 00:00:00 2020-12-25 00:00:00 Patient Secure [facility] 1.2840.114 350.1.13.10 4.2.7.2.686 [id number] [facility] 2020-12-20 00:00:00 2020-12-20 00:00:00 Patient Secure Msg [facility] 1.2.840.114 350.1.13.10 4.2.7.2.686 [id number] [facility] 2020-12-19 00:00:00 2020-12-19 00:00:[address] [facility] 1.2.840.114 350.1.13.10 4.2.7.2.686 [id number] [facility] 2020-12-14 07:53:25 2020-12-14 23:59:00 Hospital Encounter Ryan Christianson [facility] 1.2.840.114 350.1.13.10 4.2.7.2.686 [id number] [facility] 2020-12-14 07:53:14 2020-12-14 23:59:00 Hospital Encounter Ryan Christianson [facility] 1.2.840.114 350.1.13.10 4.2.7.2.686 [id number] [facility] 2020-12-14 07:53:04 2020-12-14 23:59:00 Hospital Encounter Ryan Christianson [facility] 1.2.840.114 350.1.13.10 4.2.7.2.686 [id number] [facility] 2020-12-14 07:52:23 2020-12-14 07:52:23 Hospital Encounter Ryan Christianson [facility] 1.2.840.114 350.1.13.10 4.2.7.2.686 [id number] [facility] 2020-12-14 00:00:00 2020-12-14 00:00:00 Outpatient RYAN [facility]IAN[facility] [id number] [facility] 2020-12-05 13:35:35 2020-12-05 14:36:37 Office Visit [facility] [place] [facility] 1.114 350.1.13.10 4.2.7.2.686 [id number] [facility] 2020-12-05 14:00:00 2020-12-05 14:00:00 Outpatient R [facility] [id number] [facility] 2020-12-01 08:24:35 2020-12-01 08:39:35 Ion Exchange Operator Visit Pob, Adc Lab Main [facility] 1.84.114 350.1.13.10 4.2.7.2.686 [id number] [facility] 2020-12-01 08:30:00 2020-12-01 08:30:00 Outpatient R [facility]RISTIAN AYSE [facility] [id number] [facility] 2020-11-28 00:00:00 2020-11-28 00:00:00 Telephone [facility] [place] [facility] 1..114 350.1.13.10 4.2.7.2.686 [id number] [facility] 2020-11-13 16:00:00 2020-11-13 16:00:00 Outpatient R RYAN [facility] [id number] [facility] 2020-11-06 00:00:00 2020-11-06 00:00:00 Patient Outreach Neal Mars [facility] 1.84.114 350.1.13.10 4.2.7.2.686 [id number] [facility] 2020-10-06 10:53:30 2020-10-06 12:21:03 Office Visit Ryan Christianson [facility] Building 1.114 350.1.13.10 4.2.7.2.686 [id number] [facility] 2020-10-06 11:00:00 2020-10-06 11:00:00 Outpatient R RYAN [facility] [id number] [facility] 2020-09-17 00:00:00 2020-09-17 00:00:00 Refill Doctor Unassigned, [place] [facility] 1. 350.1.13.10 4.2.7.2.686 [id number] [facility] 2020-09-05 11:00:00 2020-09-05 11:00:00 Outpatient R CHRISTIAN AYSE [facility] [id number] [facility] 2020-09-05 07:24:28 2020-09-05 07:54:28 Telemedici ne Visit Christian Ayse [facility] 1.114 350.1.13.10 4.2.7.2.686 [id number] [facility] 2020-09-05 00:00:00 2020-09-05 00:00:00 Patient Secure Msg Doctor Unassigned, [place] [facility] 1.114 350.1.13.10 4.2.7.2.686 [id number] [facility] 2020-08-30 09:16:09 2020-08-30 09:31:09 Ion Exchange Operator Visit Pob, Adc Lab Main [facility] Building 1.114 350.1.13.10 4.2.7.2.686 [id number] [facility] 2020-08-30 09:15:00 2020-08-30 09:15:00 Outpatient R CHRISTIAN AYSE [facility] [id number] [facility] 2020-08-29 00:00:00 2020-08-29 00:00:00 Telephone Christian [facility] 1.114 350.1.13.10 4.2.7.2.686 [id number] [facility] 2020-08-14 00:00:00 2020-08-14 00:00:[address] [facility] 1.114 350.1.13.10 4.2.7.2.686 [id number] [facility] 2020-04-14 00:00:00 2020-04-14 00:00:00 Telephone Christian [facility] 1.114 350.1.13.10 4.2.7.2.686 [id number] [facility] 2020-03-23 13:00:00 2020-03-23 13:00:00 Outpatient R CHRISTIAN AYSE [facility] [id number] [facility] 2020-03-23 07:48:19 2020-03-23 08:48:19 [facility]medici ne [facility] 1.114 350.1.13.10 4.2.7.2.686 [id number] [facility] 2020-03-21 13:00:00 2020-03-21 13:00:00 Outpatient R AYSE GONZALES [facility] [id number] [facility] 2020-03-20 08:13:42 2020-03-20 08:28:42 Ion Exchange Operator Visit Pob, Adc Lab Main Christian Ayse [facility] 1.2.840.114 350.1.13.10 4.2.7.2.686 [id number] [facility] 2020-03-20 07:30:00 2020-03-20 07:30:00 Outpatient R AYSE GONZALES [facility] [id number] [facility] 2020-03-16 00:00:00 2020-03-16 00:00:00 Telephone Christian [facility] 1.0.114 350.1.13.10 4.2.7.2.686 [id number] [facility] 2020-03-14 00:00:00 2020-03-14 00:00:[address] [facility] [place] [facility] 1..114 350.1.13.10 4.2.7.2.686 [id number] [facility] 2020-02-29 15:10:36 2020-02-29 15:43:10 Office Visit Perri Call [facility] 1.0.114 350.1.13.10 4.2.7.2.686 [id number] [facility] 2020-02-29 15:15:00 2020-02-29 15:15:00 Outpatient R PERRI CALL [facility] [id number] [facility] 2020-02-29 00:00:00 2020-02-29 00:00:00 Orders Only Doctor Unassigned, [place] [facility] 1..114 350.1.13.10 4.2.7.2.686 [id number] [facility] 2020-02-18 00:00:00 2020-02-18 00:00:00 Transition of Care [facility] [address] 1.0.114 350.1.13.10 4.2.7.2.686 [id number] [facility] 2020-02-11 15:17:21 2020-02-17 11:50:00 Hospital Encounter Person, [facility] 1.2840.114 350.1.13.10 4.2.7.2.686 [id number] [facility] 2020-02-11 11:54:46 2020-02-11 14:08:00 Emergency X CHERYL HUGHES [facility] ERT [id number] [facility] 2020-02-11 11:54:46 2020-02-11 14:08:00 Emergency Cheryl Hughes [facility] 1..840.114 350.1.13.10 4.2.7.2.686 [id number] [facility] 2020-02-11 11:54:46 2020-02-11 11:54:46 Emergency X CHERYL HUGHES [facility] ERT [id number] [facility] Results Test Description Test Time Test Comments Results Result Co mments Source FLUORESCENCE INSITU [id number] 09:49:00* Test Item Value Reference Range Interpretation Comme nts FLUORESCENCE INSITU HYBRID (test code = FISH) FISH Analysis - MDS Extended Results: Normal Interpretation: +19 Not Detected Chromosome 8 Not Detected Chromosome 20 Not Detected 5q-/-5/+5 tricolor Not Detected 7q-/-7 tri Not Detected p53 (17p13.1)/ NF1 (17q11) Not Detected ETV6 (12p13) Not JqajzugyKFD0Q (MLL) (11q23) Not Detected RPN1/MECOM (3q) Not Detected There is no evidence of abnormalities. NOTE: The presence of other abnormalities, not detectable bythis FISH probe set, cannot be ruled out. RECOMMENDATION: These results should be interpreted inconjunction with clinical and other laboratory findings. Electronic Luna Beyer M.D., Hematopathologist See scanned copy for full report. CHROMOSOME CAROLINE BONE [id number] 09:49:00* Test Item Value Reference Range Interpretation [...] or present in low levels. Analysis Code: DQ8H71A8Q, QC ([id number]) Test Detail:Metaphases Counted: 13Metaphases Analyzed: 13Metaphases Karyotyped: 4Culture Type: 24EB, 48EBBanding Technique: GTGBanding Resolution: 350 Electronic SignatureChpancho Cheema M.D., Pathologist - [facility]. LEUK/LYMPHOMA [id number] 09:49:00* Test Item Value Reference Range Interpretation Comme nts LEUK/LYMPHOMA PANEL (test code = LEULYM) Flow Cytometry A nalysis Specimen Type: Bone MarrowBody Site: Left Iliac Crest Diagnosis:1) FINDINGS SUGGESTIVE OF IMMATURE MONOCYTES2) PLASMA CELL STUDIES ORDERED ADDENDUM ([id number]):- NO EVIDENCE FOR PLASMA CELL NEOPLASM DETECTED Comments:Phenotype: ?dim CD7 (subset), dim CD11c, CD13, CD33, CD34,CD38, CD64, CD117, HLA-DR; negative for CD10 and CD19 Monocytes demonstrate heterogeneous expression of TY26pivbnejoyh of monocyte immaturity. 0.9% myeloid blasts aredetected with equivocal expression of CD7 noted in a subset of blasts. These findings may sometimes be associated with a myeloid neoplasm. Eosinophils are 6%. Cytogenetic karyotyping, FISH and next gen sequencing studies are already in progress as requested. No evidence for acute leukemia, increased CD34/BZ794qqjxjjhn blasts, lymphoproliferative disorder is detected. Clinical and morphologic correlation is recommended for fullinterpretation. ADDENDUM([id number]): Cytoplasmic light chain and CD138 studiesdemonstrate polytypic [...] CD45, CD56, CD64, CD117,CD138, cKappa, cLambda, HLA-DR, De Graff, Lambda (27 Markers ) Immunophenotyping:Analysis Code: 3-3903 ADDENDED: Diagnosis addended for plasma cell studies only Electronic Elvin Pryor M.D., Pathologist BONE [id number] 13:47:00* Test Item Value Reference Range Interpretation Comments BONE MARROW (test code = BR) RUN DATE: 04/30/23 [place] [employer] [facility] PAGE 1 RUN TIME: 1419 Specimen Inquiry RUN USER: INTERFACE PATIENT: TEVIN NYE LOC: ANAMIKA U #: [id number] AGE/SX: 73/M ROOM: [facility] RE04/08/23REG DR: Rojelio Magaña MD : 51 BED: 1 DIS: 04/19/23 STATUS: DIS IN TLOC: SPEC #: [id number] RECD: 04/17/23 STATUS: GILBERT RE #: [id number] BHAVANI: 04/17/23- [facility] DR: Pablo Kumar MD ENTERED: 04/17/23 SP TYPE: BM OTHR DR: Self Referred Anibal Haynes MD, Majd Byrne, John G MD Chaugle, Abdul Hannan MD Gibberman, Jeffrey B MD Gray, Nicholas J PA Gupta, Kalpana J MD Hafez, Jawdat DPEzra Arvizu,Dakota Butler,Atif Deluna MD, MD,Glendy Ceron MDORDERED: 44424, 50683/2, SPEC STAIN GR2/4, 30358, IHC ADD 26494/6, 30269, 80061, ANATOMIC SPEC COPIES TO: Self Referred Anibal Haynes MD [address] [place] [address] Sharmila Alan [address] [place] [address] [place] [address] Samuel Mcguire MD [address] [place] [address] [place] [address] Luci Beyer MD [address] [place] [address]. [address] [place] [address] Davi Hilton MD [address] [place] [address] CONTINUED ON NEXT PAGE RUN DATE: 04/30/23 [place] - LAB PAGE 2 RUN TIME: 1419 Specimen Inquiry RUN USER: INTERFACE SPEC #: [id number] PATIENT: TEVIN NYE #[id number] (Continued) COPIES TO: (Continued) [place] [address] [facility] [address] [place], [place] [id number] Elvie Gamboa MD [address] [place] [address] Reyna Washington DPEzra [address] [place] [address] Pablo Kumar MD [address] [place] [address] Dakota Arvizu MD [address] [place] [address] David Butler MD [address] [place] [address] Atif Mcclelland MD [facility] [place] [address] Glendy Paz MD [address] [place] [address] PROCEDURES: 55641 (04/17/23) 85280 (04/17/23) SPEC STAIN GR2 (04/17/23) 41250 (04/21/23) IHC ADD 71218 (04/21/23) 07298 (04/21/23) 93004 (04/21/23) CONTINUED ON NEXT PAGE RUN DATE: 04/30/23 [place] - LAB PAGE 3 RUN TIME: 1419 Specimen Inquiry RUN USER: INTERFACE SPEC #: [id number] PATIENT: CLEMENTTVEIN #[id number] (Continued) TISSUES: A. BONE MARROW BIOPSY/ BONE MARROW PARTICLE CLOT - LEFT ILIAC CREST ADDENDUM FINDINGS Addendum #3 Entered: 04/30/23 This addenum is issued to report the results of ancillary studies performed and interpretedat [facility] (see below). 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 DNMT3A mutations are found in 31% of acute myeloidleukemia (PMID: 08281173), 13% of myelodysplastic syndrome (PMID: 22868372), 13% ofrefractory anemia with ring sideroblasts associated with marked thrombocytosis (PMID:40906952), 8% of blastic plasmacytoid dendritic cell neoplasm (PMID: 38205450), 6% ofprimary myelofibrosis (PMID: 88533832), 6% of essential thrombocythemia, 2% of polycythemiavera (PMID: 07437057), and 4% of chronic myelomonocytic leukemia (PMID: 11665184). XKTC3Ckxvnuireo are associated with an unfavorable prognosis in myelodysplastic syndrome iwdlCE4K2 is not mutated, and also unfavorable outcomes and shorter survival afterhematopoietic stem cell transplantation (PMID: 43646296). DNMT3A mutations are associatedwith an unfavorable prognosis in acute myeloid leukemia with FLT3-ITD mutation and normalkaryotype or intermediate-risk cytogenetic abnormalities, but improved outcome in patientstreated with high-dose induction chemotherapy compared with standard-dose inductionchemotherapy (PMID: 78606145). Somatic mutations in leukemia associated genes (particularlyASXL1, [...] allele frequency of 10% or more (PMID: 20907392). Somaticmutations in leukemia-associated genes are also commonly found in patients with unexplainedcytopenias who do not meet diagnostic criteria for myelodysplastic syndrome, a conditionknown as clonal cytopenias of undetermined significance (CCUS) (PMID: 91666739 and PMID:23233557). PLEASE SEE ORIGINAL REFERENCE LAB REPORT FOR DETAILS Addendum Signed SIGNATURE ON FILE Shun Vasquez Lindsay 04/30/23 1418 Addendum #2 Entered: 04/25/23621 This addenum is issued to report the results of ancillary studies performed and interpretedat [facility] (see below). CONTINUED ON NEXT PAGE RUN DATE: 04/30/23 [place] - [facility] PAGE 4 RUN TIME: 1419 Specimen Inquiry RUN USER: INTERFACE SPEC #: [id number] PATIENT: TEVIN NYE #[id number] (Continued) ADDENDUM FINDINGS (Continued) Oncology chromosome analysis: [...] results of ancillary studies performed and interpretedat [facility] (see below). FISH MDS extended: Normal PLEASE [...] neutrophils present; thrombocytopenia. -Flow cytometry (performed at [facility]): Findings suggestive of immature monocytes. CONTINUED ON NEXT PAGE RUN DATE: 04/30/23 [facility] PAGE 5 RUN TIME: 1419 Specimen Inquiry RUN USER: INTERFACE SPEC #: [id number] PATIENT: TEVIN NYE #[id number] (Continued) FINAL DIAGNOSIS (Continued) Comment: The above [...] stained clot section. Technical component performed at [address], [place] [address] Unless gross only, the diagnosis is based [...] CONTINUED ON NEXT PAGE RUN DATE: 04/30/23 [place] - LAB PAGE 6 RUN TIME: 1419 Specimen Inquiry RUN USER: INTERFACE SPEC #: [id number] PATIENT: TEVIN NYE #[id number] (Continued) MICROSCOPIC DESCRIPTION (Continued) all cells. The [...] Signed SIGNATURE ON FILE Shun Vasquez 04/21/23 0717 END OF REPORT GLUCOSE [id number] 11:24:00* Test Item Value Reference Range Interpretation Comme nts GLUCOSE BEDSIDE (test code = GLUBED) 194 MG/DL 70-110 H Performed by wendy ferguson at [facility] CBC W/AUTO [id number] 08:08:00* Test Item Value Reference Range Interpretation Comme [facility] WHITE BLOOD CELL (test code = [...] (test c ode = MDIFF) NO GLUCOSE [id number] 07:41:00* Test Item Value Reference Range Interpretation Comme nts GLUCOSE BEDSIDE (test code = GLUBED) 186 MG/DL 70-110 H Performed by cer tified operator prefinish at [facility] BASIC METABOLIC [id number] 07:37:00* Test Item Value Reference Range Interpretation [...] = CA) 8.2 mg/dL 8.0-10.5 N GLUCOSE [id number] 20:52:00* Test Item Value Reference Range Interpretation Comme nts GLUCOSE BEDSIDE (test code = GLUBED) 203 MG/DL 70-110 H Performed by cer tified operator prefinish at [facility] GLUCOSE [id number] 16:19:00* Test Item Value Reference Range Interpretation Comme nts GLUCOSE BEDSIDE (test code = GLUBED) 195 MG/DL 70-110 H Performed by cer tified operator prefinish at [facility] GLUCOSE [id number] 11:32:00* Test Item Value Reference Range Interpretation Comme nts GLUCOSE BEDSIDE (test code = GLUBED) 247 MG/DL 70-110 H Performed by cer yun operator prefinish at [facility] BASIC METABOLIC [id number] 09:06:00* Test Item Value Reference Range Interpretation [...] CA) 8.3 mg/dL 8.0-10.5 N CBC W/AUTO [id number] 08:26:00* Test Item Value Reference Range Interpretation [...] (test c ode = MDIFF) NO GLUCOSE [id number] 08:19:00* Test Item Value Reference Range Interpretation Comme nts GLUCOSE BEDSIDE (test code = GLUBED) 196 MG/DL 70-110 H Performed by cer tified operator prefinish at [facility] GLUCOSE [id number] 19:34:00* Test Item Value Reference Range Interpretation Comme nts GLUCOSE BEDSIDE (test code = GLUBED) 203 MG/DL 70-110 H Performed by wendy malcolm operator prefinish at [facility] PROTEIN ELECTROPHORESIS [id number] 16:11:00* Test Item Value Reference Range Interpretation Comme nts TOTAL PROTEIN (test code = PROTE) 5.5 g/dL 6.0-8.5 L ALBUMIN (test code = ALBE) 2.6 g/dL 2.9-4.4 A EZJXU-7-LAXSXLIC (test code = A1G) 0.3 g/dL 0.0-0.4 MDDSK-0-UVVHMPLM (test code = A2G) 0.7 g/dL 0.4-1.0 [...] Evidence ofmonoclonal protein is not apparent.Performed At: [address] [id number] Veloz MD Ph:[phone] ed At: [address] [id number] CN MD Ph:[phone] SPE pattern reflects hypoalbuminemia. Evidence ofmonoclonal protein is not apparent.Performed At: [address] [id number] Veloz MD Ph:[phone] ed At: [address] [id number] CN MD Ph:[phone] [Automated message] The system which generated this result transmitted reference range: (). The reference range was not used to interpret this result as normal/abnormal. GLUCOSE [id number] 12:12:00* Test Item Value Reference Range Interpretation Comme nts GLUCOSE BEDSIDE (test code = GLUBED) 177 MG/DL 70-110 H Performed by cer yun operator prefinish at [facility] BASIC METABOLIC [id number] 08:24:00* Test Item Value Reference Range Interpretation [...] CA) 8.0 mg/dL 8.0-10.5 N CBC W/AUTO [id number] 08:09:00* Test Item Value Reference Range Interpretation [...] (test c ode = MDIFF) NO GLUCOSE [id number] 07:24:00* Test Item Value Reference Range Interpretation Comme nts GLUCOSE BEDSIDE (test code = GLUBED) 180 MG/DL 70-110 H Performed by wendy malcolm operator prefinish at [facility] - CT [facility] (Biopsy/Asp)2023-04-17 00:00[facility]00 [facility] 1950 Sex: M Name: TEVIN NYE [facility] : 1950 Age/S: 73 / M [address] [place] [address] Blvd Unit #: [id number] Loc: [place] [address] Phys: Dakota Arvizu MD Acct: [id number] Dis Date: Status: ADM IN PHONE #: [phone] Exam Date: 04/17/2023 1035 FAX #: [phone] Reason: Anemia, leucopenia, evaluate for MDS EXAMS: CPT CODE: [id number] CT [facility] (Biopsy/Asp) [address] PROCEDURE INFORMATION: Exam: IR Diagnostic Bone Marrow Biopsies And Aspirations Exam date and time: 04/17/2023 10:19 AM Age: 73 years old Clinical indication: Other: Anemia, leucopenia, evaluate for mds TECHNIQUE: Imagingprotocol: Diagnostic bone marrow biopsies and aspirations. The [...] the procedure were discussed prior to the procedure.Informed consent was obtained. Time out: Timeout was [...] 1 Signed Report (CONTINUED) [facility]: 1950 Age/S: 73 / M [address] [place] [address] Unit #: [id number] Loc: [place] [address] Phys: Dakota Arvizu MD Acct: [id number] Dis Date: Status: ADM IN PHONE #: [phone] Exam Date: 06/2023 1035 FAX #: [phone] Reason: Anemia, leucopenia, evaluate for MDS EXAMS: CPT CODE: [id number] CT [facility] N[facility] (Biopsy/Asp) 85785 (Continued) was advanced into the posterior left [...] Michaels RT(R)(CT) CTDI: DLP: Trnscb Date/Time: 04/17/2023 (112) t.SDR.PK16 Orig Print D/T: S: 04/17/2023 (1127) PAGE 2 Signed ReportGLUCOSE [id number] 21:24:00* Test Item Value Reference Range Interpretation Comme nts GLUCOSE BEDSIDE (test code = GLUBED) 186 MG/DL 70-110 H Performed by cer tified operator prefinish at [facility] GLUCOSE [id number] 17:00:00* Test Item Value Reference Range Interpretation Comme nts GLUCOSE BEDSIDE (test code = GLUBED) 180 MG/DL 70-110 H Performed by cer tified operator prefinish at [facility] [id number] 16:11:00* Test Item Value Reference Range Interpretation Comme nts HAPTOGLOBIN (test code = HAPT) 125 mg/dL 34-355 Performed At: DA [facility] [facility] [address] [place], [place] [id number] CN MD Ph:[phone] GLUCOSE [id number] 11:14:00* Test Item Value Reference Range Interpretation Comme nts GLUCOSE BEDSIDE (test code = GLUBED) 218 MG/DL 70-110 H Performed by cer tified operator prefinish at [facility] CBC W/AUTO [id number] 08:32:00* Test Item Value Reference Range Interpretation [...] c ode = MDIFF) NO BASIC METABOLIC [id number] 08:29:00* Test Item Value Reference Range Interpretation [...] = CA) 8.0 mg/dL 8.0-10.5 N GLUCOSE [id number] 07:54:00* Test Item Value Reference Range Interpretation Comme nts GLUCOSE BEDSIDE (test code = GLUBED) 193 MG/DL 70-110 H Performed by cer tified operator prefinish at [facility] GLUCOSE [id number] 23:55:00* Test Item Value Reference Range Interpretation Comme nts GLUCOSE BEDSIDE (test code = GLUBED) 173 MG/DL 70-110 H Performed by cer tified operator prefinish at [facility] GLUCOSE [id number] 15:45:00* Test Item Value Reference Range Interpretation Comme nts GLUCOSE BEDSIDE (test code = GLUBED) 184 MG/DL 70-110 H Performed by cer tified operator prefinish at [facility] GLUCOSE [id number] 10:59:00* Test Item Value Reference Range Interpretation Comme nts GLUCOSE BEDSIDE (test code = GLUBED) 202 MG/DL 70-110 H Performed by cer tified operator prefinish at [facility] VITAMIN [id number] 08:33:00* Test Item Value Reference Range Interpretation Comme nts VITAMIN B12 (test code = VITB12) 589 pg/mL 193-986 N FOLIC [id number] 08:33:00* Test Item Value Reference Range Interpretation Comme nts FOLIC ACID (test code = FOL) 14.0 ng/mL 3.1-17.5 N BASIC METABOLIC [id number] 08:06:00* Test Item Value Reference Range Interpretation [...] code = LDH) 191 IUnits/L 87-241 N [id number] 08:06:00* Test Item Value Reference Range Interpretation Comme nts MAGNESIUM (test code = MAG) 1.94 mg/dL 1.80-2.40 RETIC COUNT (AUTOMATED)2023-04-15 07:32:00* Test Item Value Reference Range Interpretation Comme nts RETIC COUNT (AUTOMATED) (jorge luis t code = RETICA) 5.9 % 0.3-2.3 H CBC W/AUTO [id number] 07:31:00* Test Item Value Reference Range Interpretation [...] (test c ode = MDIFF) NO GLUCOSE [id number] 07:05:00* Test Item Value Reference Range Interpretation Comme [facility] GLUCOSE BEDSIDE (test code = GLUBED) 207 MG/DL 70-110 H Performed by [employer] operator prefinish at [facility] GLUCOSE [id number] 20:41:00* Test Item Value Reference Range Interpretation Comme [facility] GLUCOSE BEDSIDE (test code = GLUBED) 204 MG/DL 70-110 H Performed by [employer] operator prefinish at [facility] GLUCOSE [id number] 16:37:00* Test Item Value Reference Range Interpretation Comme [facility] GLUCOSE BEDSIDE (test code = GLUBED) 215 MG/DL 70-110 H Performed by [employer] operator prefinish at [facility] LOW MOLECULAR WT [id number] 14:03:00* Test Item Value Reference Range Interpretation Comme [facility] LOW MOLECULAR WT HEPARIN (test code = LMWHEP) 0.96 IU/mL 0.60-1.00 N LMWH Therapeutic Ranges (target anti-Xa levels measured 3-5 hours after dose):Enoxaparin (Lovenox) - Twice daily dosin.6-1.0 IU/mL Once daily dosing: >1.0 IU/mLTinzaparin (lnnohep) - Once daily dosin.85 IU/mLDalteparin (FragMin) - Once daily dosin.05 IU/mL GLUCOSE [id number] 11:32:00* Test Item Value Reference Range Interpretation Comme nts GLUCOSE BEDSIDE (test code = GLUBED) 209 MG/DL 70-110 H Performed by wendy malcolm operator prefinish at [facility] CBC W/AUTO [id number] 08:46:00* Test Item Value Reference Range Interpretation [...] (test c ode = MDIFF) NO GLUCOSE [id number] 07:31:00* Test Item Value Reference Range Interpretation Comme nts GLUCOSE BEDSIDE (test code = GLUBED) 200 MG/DL 70-110 H Performed by cer tified operator prefinish at [facility] [place] COMPREHENSIVE METABOLIC [id number] 06:23:00* Test Item Value Reference Range Interpretation [...] code = ALKP) 80 IUnit/L 20-125 N [id number] 06:23:00* Test Item Value Reference Range Interpretation Comme nts MAGNESIUM (test code = MAG) 1.39 mg/dL 1.80-2.40 L CALCIUM [id number] 06:23:00* Test Item Value Reference Range Interpretation Comme nts CALCIUM IONIZED (test code = BIBIANA) 1.16 MMOL/L 1.09-1.30 N - XR CHEST 1 [id number] 00:00:00 [facility] 1950 Sex: M FAX: Samuel Mcguire MD [place]: GC St: [facility] FAX: Elvie Gamboa MD [phone] Name: TEVIN NYE [facility] : 1950 Age/S: 73/M [address] [place] [address] Unit #: [id number] Loc: G.5517 [place] [address] Phys:Elvie Gamboa MD Acct: [id number] Dis Date: Status: ADM IN PHONE #: [phone] Exam Date: 04/13/2023 1720 FAX #: [phone] Reason: SHORTNESS OF BREADTH EXAMS: CPT CODE: [id number] XR CHEST 1 V 68552 PROCEDURE INFORMATION: Exam: XR Chest Exam date [...] By: [email or web address] Orig Print D/T: S: 04/14/2023 (615)PAGE 1 Signed ReportGLUCOSE [id number] 21:51:00* Test Item Value Reference Range Interpretation Comme nts GLUCOSE BEDSIDE (test code = GLUBED) 223 MG/DL 70-110 H Performed by cer tified operator prefinish at [facility] GLUCOSE [id number] 16:31:00* Test Item Value Reference Range Interpretation Comme nts GLUCOSE BEDSIDE (test code = GLUBED) 135 MG/DL 70-110 H Performed by cer tified operator prefinish at [facility] [place] GLUCOSE [id number] 12:11:00* Test Item Value Reference Range Interpretation Comme nts GLUCOSE BEDSIDE (test code = GLUBED) 211 MG/DL 70-110 H Performed by cer tified operator prefinish at [facility] [place] GLUCOSE [id number] 08:31:00* Test Item Value Reference Range Interpretation Comme nts GLUCOSE BEDSIDE (test code = GLUBED) 170 MG/DL 70-110 H Performed by cer tified operator prefinish at [facility] [place] BASIC METABOLIC [id number] 07:58:00* Test Item Value Reference Range Interpretation [...] 8.1 mg/dL 8.0-10.5 N LOW MOLECULAR WT [id number] 07:32:00* Test Item Value Reference Range Interpretation Comme nts LOW MOLECULAR WT HEPARIN (test code = LMWHEP) 0.56 IU/mL 0.60-1.00 L LMWH Therapeutic Ranges (target anti-Xa levels measured 3-5 hours after dose):Enoxaparin (Lovenox) - Twice daily dosin.6-1.0 IU/mL Once daily dosing: >1.0 IU/mLTinzaparin (lnnohep) - Once daily dosin.85 IU/mLDalteparin (FragMin) - Once daily dosin.05 IU/mL CBC W/AUTO [id number] 07:19:00* Test Item Value Reference Range Interpretation [...] (test c ode = MDIFF) NO GLUCOSE [id number] 16:46:00* Test Item Value Reference Range Interpretation Comme [facility] GLUCOSE BEDSIDE (test code = GLUBED) 172 MG/DL 70-110 H Performed by cer tified operator prefinish at [facility] [place] GLUCOSE [id number] 11:02:00* Test Item Value Reference Range Interpretation Comme [facility] GLUCOSE BEDSIDE (test code = GLUBED) 139 MG/DL 70-110 H Performed by cer tified operator prefinish at [facility] [place] COMPREHENSIVE METABOLIC [id number] 07:57:00* Test Item Value Reference Range Interpretation [...] ALKP) 102 IUnit/L 20-125 N CBC W/AUTO [id number] 07:54:00* Test Item Value Reference Range Interpretation [...] (test c ode = MDIFF) NO GLUCOSE [id number] 07:54:00* Test Item Value Reference Range Interpretation Comme [facility] GLUCOSE BEDSIDE (test code = GLUBED) 255 MG/DL 70-110 H Performed by cer tified operator prefinish at [facility] [place] GLUCOSE [id number] 07:24:00* Test Item Value Reference Range Interpretation Comme [facility] GLUCOSE BEDSIDE (test code = GLUBED) 178 MG/DL 70-110 H Performed by cer tified operator prefinish at [facility] [place] LOW MOLECULAR WT [id number] 23:57:00* Test Item Value Reference Range Interpretation Comme [facility] LOW MOLECULAR WT HEPARIN (test code = LMWHEP) 0.76 IU/mL 0.60-1.00 N LMWH Therapeutic Ranges (target anti-Xa levels measured 3-5 hours after dose):Enoxaparin (Lovenox) - Twice daily dosin.6-1.0 IU/mL Once daily dosing: >1.0 IU/mLTinzaparin (lnnohep) - Once daily dosin.85 IU/mLDalteparin (FragMin) - Once daily dosin.05 IU/mL COMMENTS: DRAW LEVEL 4 HOURS AFTER GIVING LOVENOX SHOTGLUCOSE [id number] 17:43:00* Test Item Value Reference Range Interpretation Comme [facility] GLUCOSE BEDSIDE (test code = GLUBED) 214 MG/DL 70-110 H Performed by cer tified operator prefinish at [facility] GLUCOSE [id number] 12:11:00* Test Item Value Reference Range Interpretation Comme [facility] GLUCOSE BEDSIDE (test code = GLUBED) 230 MG/DL 70-110 H Performed by cer tified operator prefinish at [facility] [place] BASIC METABOLIC [id number] 08:42:00* Test Item Value Reference Range Interpretation Comme [facility] SODIUM (test code = NA) 140 [...] CA) 7.9 mg/dL 8.0-10.5 L CBC W/AUTO [id number] 08:42:00* Test Item Value Reference Range Interpretation [...] (test c ode = MDIFF) NO GLUCOSE [id number] 08:32:00* Test Item Value Reference Range Interpretation Comme nts GLUCOSE BEDSIDE (test code = GLUBED) 199 MG/DL 70-110 H Performed by cer yun operator prefinish at [facility] UR SMEAR EOSINOPHIL [id number] 06:11:00* Test Item Value Reference Range Interpretation Comme nts UR SMEAR EOSINOPHIL COUNT (t est code = EOSCTU) NONE SEEN UR PROTEIN/CREATININE [id number] 06:11:00* Test Item Value Reference Range Interpretation Comme nts UR PROTEIN RANDOM (test code = PROTU) 40 mg/dL UR CREATININE RANDOM (test code = CREATU) 91.5 mg/dL The Reference Ra nge and Method Performance specificationshave not been established for this fluid. The test resultshould be correlated into the clinical context forinterpretation. PROTEIN/CREATININE RATIO (test code = P/CRATIO) 0.44 - US RETROPERITONEAL [id number] 00:00[facility]00 [facility] 1950 Sex: M Name: TEVIN NYE [facility] : 1950 Age/S: 73 / M [address] [place] [address] Bl Unit #: [id number] Loc: [place] [address] Phys: Monserrat Bobo MD Acct: [id number] Dis Date: Status: ADM IN PHONE #: [phone] Exam Date: 04/10/2023 1127 FAX #: [phone] Reason: arf EXAMS: CPT CODE: [id number] US RETROPERITONEAL COM 85282 PROCEDURE INFORMATION: Exam: US Retroperitoneal; Complete; Kidneys [...] Technologist: Jeremie Roman Trnscb Date/Time: 04/11/2023 (0809) BuckSG9 Orig Print D/T: S: 04/11/2023 (0809) Probe: PAGE 1 Signed ReportGLUCOSE [id number] 22:02:00* Test Item Value Reference Range Interpretation Comme nts GLUCOSE BEDSIDE (test code = GLUBED) 198 MG/DL 70-110 H Performed by [facility] tifShijiebang operator prefinish at [facility] TOTAL IRON BINDING [id number] 17:06:00* Test Item Value Reference Range Interpretation Comme nts SERUM IRON (test code = IRON) 47 mcg/dL 35-150 N TOTAL IRON BINDING CAPACITY (test code = TIBC) 204 mcg/dL 260-445 L UIBC (test code = UIBC) 157 mcg/dL IRON SATURATION (test code = FESAT) 23.0 % 14-34 N [id number] 17:06:00* Test Item Value Reference Range Interpretation Comme nts FERRITIN (test code = BRIAN) 255.2 ng/mL 23.9-336.2 N GLUCOSE [id number] 16:58:00* Test Item Value Reference Range Interpretation Comme nts GLUCOSE BEDSIDE (test code = GLUBED) 213 MG/DL 70-110 H Performed by cer tified operator prefinish at [facility] GLUCOSE [id number] 11:53:00* Test Item Value Reference Range Interpretation Comme nts GLUCOSE BEDSIDE (test code = GLUBED) 283 MG/DL 70-110 H Performed by cox branson operator prefinish at [facility] - XR FOOT 3 + V [id number] 11:15:00 [facility] : 1950 Sex: M FAX: Samuel Mcguire MD [place]: St: ADM FAX: Elvie Gamboa MD [phone] FAX: Reyna Bardales DPM [phone] Name: TEVIN NYE [facility] : 1950 Age/S: 73/M [address] [place] [address] Bl Unit #: [id number]: G.5517 [place] [address] Phys: Reyna Washington DPM Acct: [id number] Dis Date: Status: ADM IN PHONE #: [phone] Exam Date: 04/09/2023 1501 FAX #: [phone] Reason: ULCER LEFT UPPER FOOT EXAMS: CPT CODE: [id number] XR FOOT 3 + V LT [address]111 EXAM: Left foot series, 3 views Dictation [...] DPM Technologist: RT Aroldo(Karuna) Trnscrd Date/Time/By: 04/10/2023 (1114) : By: BuckBC0 Orig Print D/T: S: 04/10/2023 (4213) PAGE 1 Signed ReportBASIC METABOLIC [id number] 08:31:00* Test Item Value Reference Range Interpretation [...] CA) 8.6 mg/dL 8.0-10.5 N CBC W/AUTO [id number] 08:30:00* Test Item Value Reference Range Interpretation [...] (test c ode = MDIFF) NO GLUCOSE [id number] 07:33:00* Test Item Value Reference Range Interpretation Comme [facility] GLUCOSE BEDSIDE (test code = GLUBED) 180 MG/DL 70-110 H Performed by cer tified operator prefinish at [facility] GLUCOSE [id number] 19:15:00* Test Item Value Reference Range Interpretation Comme nts GLUCOSE BEDSIDE (test code = GLUBED) 281 MG/DL 70-110 H Performed by cer tified operator prefinish at [facility] GLUCOSE [id number] 13:10:00* Test Item Value Reference Range Interpretation Comme nts GLUCOSE BEDSIDE (test code = GLUBED) 162 MG/DL 70-110 H Performed by cer yun operator prefinish at [facility] [id number] 12:15:00* Test Item Value Reference Range Interpretation Comme nts MAGNESIUM (test code = MAG) 2.06 mg/dL 1.80-2.40 Comment: pls add to AM labsADD ON TEST? YesBASIC METABOLIC [id number] 08:26:00* Test Item Value Reference Range Interpretation [...] CA) 9.1 mg/dL 8.0-10.5 N CBC W/AUTO [id number] 08:17:00* Test Item Value Reference Range Interpretation [...] (test c ode = MDIFF) NO GLUCOSE [id number] 05:04:00* Test Item Value Reference Range Interpretation Comme nts GLUCOSE BEDSIDE (test code = GLUBED) 121 MG/DL 70-110 H Performed by wendy malcolm operator prefinish at [facility] - DUP VEIN [id number] 00:00:00 [facility] : 1950 Sex: M Name: TEVIN NYE [facility] : 1950 Age/S: 73 / M [address] [place] [address] Blvd Unit #: [id number] Loc: [place] [address] Phys: Daniela Mari AGACNP Acct: [id number] Dis Date: Status: ADM IN PHONE #: [phone] Exam Date: 04/09/2023 1659 FAX #: [phone] Reason: rule out DVT EXAMS: CPT CODE: [id number] [facility] VEIN SCOTTY 10189 PROCEDURE INFORMATION: Exam: US Duplex Lower ExtremityVeins, [...] Normal Doppler waveforms. Normal compressibility and/or augmentation response.Left deep veins: Unremarkable. The common femoral, femoral, proximal profunda femoral and poplitealveins are patent without thrombus. Normal Doppler waveforms. Normal compressibility and/or augmentation response. Superficial veins: Bilateral saphenofemoral junctions are patent without thrombus. Soft tissues: Unremarkable. IMPRESSION: No evidence of deep vein thrombosis. at 1755 Reported and signed by: Chilo Cabrera M.D. CC: Samuel Mcguire MD; Elvie Gamboa MD; Daniela Mari Technologist: Claudia Woods RDMS(AB) Trnscb Date/Time: 04/09/2023 (1754) Chang.[email or web address] Orig Print D/T: S: 04/09/2023 (1755) Probe: PAGE 1 Signed Report- DUP LE ART [id number] 00:00:00 [facility] : 1950 Sex: M Name: TEVIN NYE [facility] : 1950 Age/S: 73 / M [address] [place] [address] Unit #: [id number] Loc: [place] [address] Phys: Daniela Mari Acct: [id number] Dis Date: Status: ADM IN PHONE #: [phone] Exam Date: 04/09/2023 1653 FAX #: [phone] Reason: rule out PAD EXAMS: CPT CODE: [id number] DUP LE ART SCOTTY 39151 PROCEDURE INFORMATION: Exam: US Duplex Bilateral Lower [...] 1 Signed Report (CONTINUED) Name: TEVIN NYE [facility] :1950 Age/S: 73 / M [address] [place] [address] Unit #: [id number] Loc: [place] [address] Phys: Daniela Mari Acct: [id number] Dis Date: Status: ADM IN PHONE #: [phone] Exam Date: 04/09/2023 1659 FAX #: [phone] Reason: rule out PAD EXAMS: CPT CODE: [id number] DUP LE ART SCOTTY 24270 (Continued) Suspicion of stenosis disc proximal to [...] Claudia Woods RDMS(AB); ...Trnscb Date/Time: 04/09/2023 (1919) [email or web address] Orig Print D/T: S: 04/09/2023 (1919) Probe: PAGE 2 Signed Report- NM LUNG PERF [id number] 00:00:00 [facility] : 1950 Sex: M FAX: Samuel Mcguire MD [place]: St: ADM FAX: Elvie Gamboa MD [phone] FAX: Daniela Mari [phone] Name: TEVIN NYE [facility] : 1950 Age/S: 73/M [address] [place] [address] Unit #: [id number] Loc: G.5517 [place] [address] Phys: Daniela Mari AGACNP Acct: [id number] Dis Date: Status: ADM IN PHONE #: [phone] Exam Date: 04/09/2023 1210 FAX #: [phone] Reason: R/O PE, elevated D-dimer, SOB EXAMS: CPT CODE: [id number] NM LUNG PERF PARTICULATE 83266 PROCEDURE INFORMATION: Exam: NM Lung Perfusion Exam [...] Mcguire MD; Elvie Gamboa MD; Daniela PIERCE [facility] Technologist: Yoanna Carrera ARRT (N)(CT) Trnscrd Date/Time/By: 04/09/2023(1257) : By: BuckCS18 Orig Print D/T: S: 04/09/2023 (1257) PAGE 1 Signed ReportGLUCOSE [id number] 23:27:00* Test Item Value Reference Range Interpretation Comme nts GLUCOSE BEDSIDE (test code = GLUBED) 119 MG/DL 70-110 H Performed by cer yun operator prefinish at [facility] BASIC METABOLIC [id number] 22:19:00* Test Item Value Reference Range Interpretation [...] code = CA) 9.2 mg/dL 8.0-10.5 N [id number] 22:19:00* Test Item Value Reference Range Interpretation Comme nts MAGNESIUM (test code = MAG) 1.66 mg/dL 1.80-2.40 L CALCIUM [id number] 22:19:00* Test Item Value Reference Range Interpretation Comme nts CALCIUM IONIZED (test code = BIBIANA) 1.20 MMOL/L 1.09-1.30 N GLUCOSE [id number] 20:37:00* Test Item Value Reference Range Interpretation Comme nts GLUCOSE BEDSIDE (test code = GLUBED) 84 MG/DL 70-110 N Performed by cer tified operator prefinish at [facility] GLUCOSE [id number] 20:19:00* Test Item Value Reference Range Interpretation Comme [facility] GLUCOSE BEDSIDE (test code = GLUBED) 69 MG/DL 70-110 L Performed by cer tified operator prefinish at [facility] [id number] 17:06:00* Test Item Value Reference Range Interpretation Comme [facility] D-DIMER (test code = DDIMER) 1496 ng/mlFEU See_Comment HH Critical result called to Radha PEREZLAB.JJ1 at 1703 04/08/23Nurse read back result and tech confirmed it's correct? YESTHROMBOSIS AND/OR PULMONARY EMBOLISM AND THE CLINICAL CUT- OFF VALUE FOR EXCLUSION (500 ng/mL FEU) OF THESE CONDITIONSIS VALIDATED BY THE BUSINESS CASE ANALYST OF THE METHOD. A NEGATIVE D-DIMER RESULT [...] as normal/abnormal. UA RFLX MICR CULT IF [id number] 15:41:00* Test Item Value Reference Range Interpretation [...] for culture: Dysuria/FrequencySpecimen Description: CLEAN CATCHB-TYPE NATRIURETIC [id number] 14:50:00* Test Item Value Reference Range Interpretation Comme nts B-TYPE NATRIURETIC PEPTIDE ( test code = BNP) 396.0 PG/ML 0-100 H COMPREHENSIVE METABOLIC [id number] 14:44:00* Test Item Value Reference Range Interpretation [...] ALKP) 89 IUnit/L 20-125 N TROP-I HIGH [id number] 14:44:00* Test Item Value Reference Range Interpretation [...] the URL. These results were obtained using [employer] TnIHreagent. Results from different methodologies should not becompared to one another as quantitative results and URLs mayvary by method. CBC W/AUTO [id number] 14:24:00* Test Item Value Reference Range Interpretation [...] 3/uL 0.0-0.1 N - XR CHEST 2 [id number] 00:00:00 [facility] : 1950 Sex: M FAX: Samuel Mcguire MD [place]: St: [facility] FAX: Paolo Arreola Name: CLEMENTTEVIN [facility] : 1950ge/S: 73/M [address] [place] [address] Unit #: [id number] Loc: [place] [address] Phys: Danny Arreola MD Acct: [id number] Dis Date: Status: REG ER PHONE #: [phone] Exam Date: 04/08/2023 [facility] FAX #: [phone] Reason: SOB, CHEST PAIN EXAMS: CPT CODE: [id number] XR CHEST 2 V 02260 PROCEDURE INFORMATION: Exam: XR Chest Exam date [...] Samuel Mcguire MD; Paolo Arreola MD Technologist: Mela Acevedo RT(R) Trnscrd Date/Time/By: 04/08/2023 (1531) : By: Amber Orig Print D/T: S: 04/08/2023 (3081) PAGE 1 Signed Report- XR CHEST COMP [id number] 00:00:00 [facility] : 1950 Sex: M FAX: Samuel Mcguire MD [place]: St: REG Name: TEVIN NYE [facility] : 1950 Age/S: 72/M [address] [place] [address] Unit #: [id number] Loc: [place] [address] Phys: Samuel Mcguire MD Acct: [id number] Dis Date: Status: REG CLI PHONE #: [phone] Exam Date: 03/19/2023 151 FAX #: [phone] Reason: J44.9 EXAMS: CPT CODE: [id number] XR CHEST COMP 4+V 09715 PROCEDURE INFORMATION: Exam: XR Chest Exam date [...] Mauricio M.D. CC: Samuel Mcguire MD Technologist: Holden Bobby RT(R) Trnscrd Date/Time/By: 03/19/2023 (1532) : By: BuckAB61 Raul Print D/T: S: 03/19/2023 (153) PAGE 1 Signed ReportGLUCOSE BEDSIDE 2023-03-13 12:34:00* Test Item Value Reference Range Interpretation Comme nts GLUCOSE BEDSIDE (test code = GLUBED) 307 MG/DL 70-110 H Performed by [facility] tified operator prefinish at [facility] GLUCOSE [id number] 07:44:00* Test Item Value Reference Range Interpretation Comme nts GLUCOSE BEDSIDE (test code = GLUBED) 198 MG/DL 70-110 H Performed by cer tified operator prefinish at [facility] BASIC METABOLIC [id number] 05:21:00* Test Item Value Reference Range Interpretation [...] code = CA) 8.5 mg/dL 8.0-10.5 N [id number] 05:21:00* Test Item Value Reference Range Interpretation Comme nts MAGNESIUM (test code = MAG) 1.81 mg/dL 1.80-2.40 N CBC W/AUTO [id number] 05:05:00* Test Item Value Reference Range Interpretation [...] (test c ode = MDIFF) NO GLUCOSE [id number] 19:22:00* Test Item Value Reference Range Interpretation Comme nts GLUCOSE BEDSIDE (test code = GLUBED) 235 MG/DL 70-110 H Performed by cer tified operator prefinish at [facility] GLUCOSE [id number] 16:47:00* Test Item Value Reference Range Interpretation Comme nts GLUCOSE BEDSIDE (test code = GLUBED) 186 MG/DL 70-110 H Performed by [facility] tified operator prefinish at [facility] GLUCOSE [id number] 12:04:00* Test Item Value Reference Range Interpretation Comme nts GLUCOSE BEDSIDE (test code = GLUBED) 279 MG/DL 70-110 H Performed by [facility] tified operator prefinish at [facility] GLUCOSE [id number] 08:19:00* Test Item Value Reference Range Interpretation Comme nts GLUCOSE BEDSIDE (test code = GLUBED) 204 MG/DL 70-110 H Performed by cer tified operator prefinish at [facility] BASIC METABOLIC [id number] 04:59:00* Test Item Value Reference Range Interpretation [...] code = CA) 8.3 mg/dL 8.0-10.5 N [id number] 04:59:00* Test Item Value Reference Range Interpretation Comme nts MAGNESIUM (test code = MAG) 1.95 mg/dL 1.80-2.40 N CBC W/AUTO [id number] 04:48:00* Test Item Value Reference Range Interpretation [...] MDIFF) NO - XR SWLW FUNC W/C [id number] 00:00:00 [facility] 1950 Sex: M FAX: Luci Wang [phone] [place]: St: ADM FAX: Evon Garcia [facility] [phone] - Name: TIGRE NYE : 1950 Age/S: 72/M [address] [place] [address] Unit #: [id number] Loc: [place] [address] Phys: Evon Andrew Acct: [id number] Dis Date: Status: ADM IN PHONE #: [phone] Exam Date: 03/12/2023 1356 FAX #: [phone] Reason: PROBLEMS SWALLOWING EXAMS: CPT CODE: [id number] XR SWLW FUNC W/C V 18512 PROCEDURE INFORMATION: Exam: FL Swallowing Function with [...] Assistants: See also separate speech pathology report. Log Grader: Mild multilevel cervical spondylosis. Procedure summary: Normal swallowing with solid and liquids. No aspiration. IMPRESSION: Unremarkable swallowing study. The reader is referred to dedicated speech therapy report for details. at 1425 Reported and signed by: Erlin Brown M.D. CC: Luci Beyer MD; Evon Andrew Technologist: RT Ofe(Karuna) Trnscrd Date/Time/By: 03/12/2023 (8774) : By: Wilbert Orig Print D/T: S: 03/12/2023 (9998) PAGE 1 Signed Report- [facility] [id number] 00:00:00 [facility] 1950 Sex: M Name: TEVIN NYE [facility] : 1950 Age/S: 72 / M [address] [place] [address] Blvd Unit #: [id number] Loc: [place] [address] Phys: Evon Andrew Acct: [id number] Dis Date: Status: ADM IN PHONE #: [phone] Exam Date: 03/12/2023701 FAX #: [phone] Reason: R/O DVT EXAMS: CPT CODE: [id number] DUP VEIN SCOTTY 76684 PROCEDURE INFORMATION: Exam: US Duplex Lower Extremity [...] Nancy Márquez RDMS(AB)(OB) Trnscb Date/Time: 03/12/2023 (718) Chang.AC53 Orig Print D/T: S: 03/12/2023 (718) Probe: PAGE 1 Signed Report- XR CHEST 1 [id number] 00:00:00 [facility] 1950 Sex: M FAX: Luci Wang [phone] [place]: St: [facility] FAX: Evon Garcia [facility] [phone] -- Name: REJI NYEMY [facility] : 1950 Age/S: 72/M [address] [place] [address] Unit #: [id number] Loc: [place] [address] Phys: Evon Andrew Acct: [id number] Dis Date: Status: ADM IN PHONE #: [phone] Exam Date: 03/12/2023 0640 FAX #: [phone] Reason: S/P CABG, R/O EFFUSION EXAMS: CPT CODE: [id number] XR CHEST 1 V 08627 PROCEDURE INFORMATION: Exam: XR Chest Exam date and time: 03/12/2023 5:54 AM Age: 72 years old Clinical indication: Other: S/P cabg, R/O effusion TECHNIQUE: Imaging protocol: Radiologic exam of the chest. Views: 1 view. COMPARISON: CR XR CHEST 1V 03/11/2023 5:41 AMFINDINGS: Tubes, catheters and devices: None. Lungs: Mlxk-ur-edfeuwff bilateral perihilar and basilar interstitial lung opacities, [...] silhouette. 2. Small bilateral pleural effusions. 3. Hnxj-da-janeemhm pulmonary edema versus inf iltrates. at 0733 Reported and signed by: David Espinal M.D. CC: Luci Beyer MD; Evon Andrew Technologist: RT Perla(Karuna) Trnscrd Date/Time/By: 03/12/2023 (0733) : By: BuckMSR4 [facility] Print D/T: S: 03/12/2023 (0733) PAGE 1 Signed ReportGLUCOSE [id number] 20:22:00* Test Item Value Reference Range Interpretation Comme nts GLUCOSE BEDSIDE (test code = GLUBED) 136 MG/DL 70-110 H Performed by cer tified operator prefinish at [facility] [place] GLUCOSE [id number] 18:31:00* Test Item Value Reference Range Interpretation Comme nts GLUCOSE BEDSIDE (test code = GLUBED) 199 MG/DL 70-110 H Performed by [facility] tified operator prefinish at [facility] [place] GLUCOSE [id number] 15:02:00* Test Item Value Reference Range Interpretation Comme nts GLUCOSE BEDSIDE (test code = GLUBED) 206 MG/DL 70-110 H Performed by cer tified operator prefinish at [facility], [place] GLUCOSE [id number] 11:44:00* Test Item Value Reference Range Interpretation Comme nts GLUCOSE BEDSIDE (test code = GLUBED) 196 MG/DL 70-110 H Performed by cer tified operator prefinish at [facility] [place] CBC W/AUTO [id number] 04:54:00* Test Item Value Reference Range Interpretation [...] c ode = MDIFF) NO BASIC METABOLIC [id number] 04:47:00* Test Item Value Reference Range Interpretation [...] code = CA) 8.7 mg/dL 8.0-10.5 N [id number] 04:47:00* Test Item Value Reference Range Interpretation Comme nts MAGNESIUM (test code = MAG) 2.13 mg/dL 1.80-2.40 - XR CHEST 1 [id number] 00:00:00 [facility] 1950 Sex: M FAX: Luci Wang [phone] [place]: St: ADM FAX: Evon Garcia [facility] [phone] -- Name: TEVNI NYE [facility] : 1950 Age/S: 72/M [address] [place] [address] Unit #: [id number] Loc: G.3343 [place] [address] Phys: Evon Andrew Physic Acct: [id number] Dis Date: Status: ADM IN PHONE #: [phone] Exam Date: 03/11/2023 0650 FAX #: [phone] Reason: S/P CABG, R/O EFFUSION EXAMS: CPT CODE: [id number] XR CHEST 1 V 36343 PROCEDURE INFORMATION: Exam: XR Chest Exam date and time: 03/11/2023 5:41 AM Age: 72 years old Clinical indication: Other: S/P cabg, R/O effusion TECHNIQUE: Imagingprotocol: Radiologic exam of the chest. Views: 1 view. COMPARISON: CR XR CHEST 1V 03/10/2023 5:13 AM FINDINGS: Tubes, catheters and devices: None. Lungs: Moderate degree bilateral perihilar and basilarinterstitial alveolar pulmonary edema versus infiltrates, pneumonia within the lungs. The pulmonaryopacities are most prominent within the lower right lung. Progression of bilateral lower lung opacities is demonstrated. Pleural spaces: Small volume bilateral pleural effusions. No pneumothorax ident ified. Heart/Mediastinum: Cardiac silhouette appears mildly enlarged. Vasculature: [...] Luci Beyer MD; Evon Andrew Technologist: SHONNA Duncan) Trnscrd Date/Time/By: 03/11/2023 (729) : By: BuckMSR4 Orig Print D/T: S: 03/11/2023 (729) PAGE 1 Signed ReportGLUCOSE [id number] 20:50:00* Test Item Value Reference Range Interpretation Comme nts GLUCOSE BEDSIDE (test code = GLUBED) 231 MG/DL 70-110 H Performed by cer tified operator prefinish at [facility] [place] GLUCOSE [id number] 12:37:00* Test Item Value Reference Range Interpretation Comme nts GLUCOSE BEDSIDE (test code = GLUBED) 197 MG/DL 70-110 H Performed by cer tified operator prefinish at [facility] [place] GLUCOSE [id number] 08:42:00* Test Item Value Reference Range Interpretation Comme nts GLUCOSE BEDSIDE (test code = GLUBED) 198 MG/DL 70-110 H Performed by [facility] tified operator prefinish at [facility] [place] BASIC METABOLIC [id number] 03:47:00* Test Item Value Reference Range Interpretation [...] code = CA) 8.2 mg/dL 8.0-10.5 N [id number] 03:47:00* Test Item Value Reference Range Interpretation Comme nts MAGNESIUM (test code = MAG) 2.52 mg/dL 1.80-2.40 H CALCIUM [id number] 03:47:00* Test Item Value Reference Range Interpretation Comme nts CALCIUM IONIZED (test code = BIBIANA) 1.09 MMOL/L 1.09-1.30 N CBC W/AUTO [id number] 03:31:00* Test Item Value Reference Range Interpretation [...] ode = MDIFF) NO POC ARTERIAL BLOOD [id number] 03:20:00* Test Item Value Reference Range Interpretation Comme nts POC ARTERIAL BLOOD GAS PH (t est code = POCPHA) 7.438 7.35-7.45 N POC ARTERIAL BLOOD GAS PCO2 (test code = YEHOST5N) 39.5 mmHg 35.0-45 N POC TCO2 ARTERIAL (test code = POCTCO2) 28.2 POC ARTERIAL BLOOD GAS PO2 ( test code = LYHLV8I) 93.2 mmHg 80-100.0 N POC HCO3 ARTERIAL (test code = WEBHDV8I) 26.9 MMOL/L 22.0-26.0 H POC BASE EXCESS (test code = POCBEA) 2.5 MMOL/L -4.0-4.0 N POC O2 SATURATION (test code = POCO2S) 97.7 % 90-100 N ABG DELIVERY (test code = RACIEL) HFNC ABG TEMPERATURE (test code = TEMPA) 97.2 F ABG SITE (test code = SITEA) Art Line SHAYLA'S TEST (test code = ALLENS) Positive BASIC METABOLIC [id number] 03:20:00* Test Item Value Reference Range Interpretation [...] = POCGLU) 147 MG/DL 70-110 H HEMOGLOBIN [id number] 03:20:00* Test Item Value Reference Range Interpretation Comme nts HEMOGLOBIN ABG (test code = HGB/ABG) 11.0 G/DL 12.5-16.9 L [id number] 03:20:00* Test Item Value Reference Range Interpretation Comme nts HEMATOCRIT (test code = HCT/ABG) 32 % 37.5-50.7 L POC LACTIC [id number] 03:20:00* Test Item Value Reference Range Interpretation Comme nts POC LACTIC ACID (test code = POCLAC) 0.4 mmol/l 0.9-1.7 L - XR CHEST 1 [id number] 00:00:00 [facility] : 1950 Sex: M FAX: Luci Wang [phone] [place]: St: ADM FAX: Evon Garcia y [phone] -- Name: TEVIN NYE [facility] : 1950 Age/S: 72/M [address] [place] [address] Unit #: [id number] Loc: G.[address] [place] [address] Phys: Evon Andrew Physic Acct: [id number] Dis Date: Status: ADM IN PHONE #: [phone] Exam Date: 03/10/2023513 FAX #: [phone] Reason: Cardiac Surgery Post Op EXAMS: CPT CODE: [id number] XR CHEST 1 V 12866 PROCEDURE INFORMATION: Exam: XR Chest Exam date [...] the right side. Heart/Mediastinum: Cardiac silhouette appears cviw-fp-dwbhvobzez enlarged. Vasculature: Mild atherosclerotic calcification demonstrated within the aorta. Bones/joints: Sternotomy wires, hardware is demonstrated. Mild generalized bony degenerative changes. Soft tissues: Right neck sheath tip is positioned over the upper chest region. This study is limited by patient's body habitus. IMPRESSION: 1. Small to moderate bilateral pleural effusions. 2. Moderate pulmonary edema versus infiltrates, pneumonia. 3. Ouow-kx-akvixlrpkp enlarged cardiac silhouette. at 0734 Reported and signed by: David Espinal M.D. CC: Luci Beyer MD; Evon Andrew Technologist: RT Lelia(Karuna) Trnscrd Date/Time/By: 03/10/2023 (0734) : By: [email or web address] [facility] Print D/T:S: 03/10/2023 (0734) PAGE 1 Signed ReportGLUCOSE [id number] 19:50:00* Test Item Value Reference Range Interpretation Comme nts GLUCOSE BEDSIDE (test code = GLUBED) 173 MG/DL 70-110 H Performed by wendy ferguson at [facility] BASIC METABOLIC [id number] 16:06:00* Test Item Value Reference Range Interpretation [...] = CA) 8.7 mg/dL 8.0-10.5 N GLUCOSE [id number] 10:39:00* Test Item Value Reference Range Interpretation Comme nts GLUCOSE BEDSIDE (test code = GLUBED) 197 MG/DL 70-110 H Performed by cer tified operator prefinish at [facility] [place] GLUCOSE [id number] 04:14:00* Test Item Value Reference Range Interpretation Comme nts GLUCOSE BEDSIDE (test code = GLUBED) 123 MG/DL 70-110 H Performed by [employer] tifShijiebang operator prefinish at [facility] [place] BASIC METABOLIC [id number] 02:38:00* Test Item Value Reference Range Interpretation [...] code = CA) 8.6 mg/dL 8.0-10.5 N [id number] 02:38:00* Test Item Value Reference Range Interpretation Comme nts MAGNESIUM (test code = MAG) 2.70 mg/dL 1.80-2.40 H CBC W/AUTO [id number] 02:35:00* Test Item Value Reference Range Interpretation [...] ode = MDIFF) NO POC ARTERIAL BLOOD [id number] 02:05:00* Test Item Value Reference Range Interpretation Comme nts POC ARTERIAL BLOOD GAS PH (t est code = POCPHA) 7.455 7.35-7.45 H POC ARTERIAL BLOOD GAS PCO2 (test code = ETGZAB9P) 39.2 mmHg 35.0-45 N POC TCO2 ARTERIAL (test code = POCTCO2) 28.8 POC ARTERIAL BLOOD GAS PO2 ( test code = ZRMGS0D) 81.3 mmHg 80-100.0 N POC HCO3 ARTERIAL (test code = UEIYJU1T) 27.6 MMOL/L 22.0-26.0 H POC BASE EXCESS (test code = POCBEA) 3.7 MMOL/L -4.0-4.0 N POC O2 SATURATION (test code = POCO2S) 96.6 % 90-100 N ABG DELIVERY (test code = RACIEL) HFNC ABG TEMPERATURE (test code = TEMPA) 98.3 F ABG SITE (test code = SITEA) Art Line SHAYLA'S TEST (test code = ALLENS) N/A BASIC METABOLIC [id number] 02:05:00* Test Item Value Reference Range Interpretation [...] = POCGLU) 212 MG/DL 70-110 H HEMOGLOBIN [id number] 02:05:00* Test Item Value Reference Range Interpretation Comme nts HEMOGLOBIN ABG (test code = HGB/ABG) 11.1 G/DL 12.5-16.9 L [id number] 02:05:00* Test Item Value Reference Range Interpretation Comme nts HEMATOCRIT (test code = HCT/ABG) 33 % 37.5-50.7 L POC LACTIC [id number] 02:05:00* Test Item Value Reference Range Interpretation Comme [facility] POC LACTIC ACID (test code = POCLAC) 0.6 mmol/l 0.9-1.7 L GLUCOSE [id number] 01:25:00* Test Item Value Reference Range Interpretation Comme [facility] GLUCOSE BEDSIDE (test code = GLUBED) 244 MG/DL 70-110 H Performed by cer tified operator prefinish at [facility] GLUCOSE [id number] 00:45:00* Test Item Value Reference Range Interpretation Comme [facility] GLUCOSE BEDSIDE (test code = GLUBED) 252 MG/DL 70-110 H Performed by cer tified operator prefinish at [facility] - XR CHEST 1 [id number] 00:00:00 [facility] 1950 Sex: M FAX: Luci Wang [phone] [place]: St: ADM FAX: Evon Garcia [facility] [phone] - Name: TIGRE NYE : 1950 Age/S: 72/M [address] [place] [address] Unit #: [id number] Loc: [address] [address] Phys: Evon Andrew Physic Acct: [id number] Dis Date: Status: ADM IN PHONE #:[phone] Exam Date: 03/09/2023 0802 FAX #: [phone] Reason: Cardiac Surgery Post Op EXAMS: CPT CODE: [id number] XR CHEST 1 V 99942 PROCEDURE INFORMATION: Exam: XR Chest Exam date and time: 03/09/2023 6:24 AM Age: 72 years old Clinical indication: Other: Cardiac surgery post op TECHNIQUE: Imaging protocol: Radiologic exam of the chest. Views: 1 view. COMPARISON: CR XR CHEST 1V 03/08/2023 6:12 AM FINDINGS: Tubes, catheters and devices: Vascular sheath in the right side of the neck with tip projecting over upper aspect of the SVC. Lungs: Bilateral lung opacities have not significantly changed. Pleural spaces: No pneumothorax. Likely right pleural effusion. Heart/Mediastinum: The heart size is stable. 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 Bon es/joints: Stable. IMPRESSION: No significant change in the lungs. at 0817 Reported and signed by: Ezekiel Esteves M.D. CC: Luci Beyer MD; Evon Andrew Technologist: SHONNA Kaufman) Trnscrd Date/Time/By: 03/09/2023 (816) : By: BuckAB53 Orig Print D/T: S: 03/09/2023 (817) PAGE 1 Signed ReportGLUCOSE [id number] 23:42:00* Test Item Value Reference Range Interpretation Comme nts GLUCOSE BEDSIDE (test code = GLUBED) 215 MG/DL 70-110 H Performed by cer tified operator prefinish at [facility] [place] GLUCOSE [id number] 21:41:00* Test Item Value Reference Range Interpretation Comme nts GLUCOSE BEDSIDE (test code = GLUBED) 193 MG/DL 70-110 H Performed by [facility] tified operator prefinish at [facility] [place] GLUCOSE [id number] 19:45:00* Test Item Value Reference Range Interpretation Comme nts GLUCOSE BEDSIDE (test code = GLUBED) 234 MG/DL 70-110 H Performed by [facility] tified operator prefinish at [facility] [place] BASIC METABOLIC [id number] 18:44:00* Test Item Value Reference Range Interpretation [...] = CA) 8.2 mg/dL 8.0-10.5 N GLUCOSE [id number] 15:57:00* Test Item Value Reference Range Interpretation Comme nts GLUCOSE BEDSIDE (test code = GLUBED) 218 MG/DL 70-110 H Performed by cer tified operator prefinish at [facility] [place] GLUCOSE [id number] 10:10:00* Test Item Value Reference Range Interpretation Comme nts GLUCOSE BEDSIDE (test code = GLUBED) 229 MG/DL 70-110 H Performed by cer tified operator prefinish at [facility] [place] GLUCOSE [id number] 08:16:00* Test Item Value Reference Range Interpretation Comme nts GLUCOSE BEDSIDE (test code = GLUBED) 136 MG/DL 70-110 H Performed by cer tified operator prefinish at [facility] [place] GLUCOSE [id number] 06:37:00* Test Item Value Reference Range Interpretation Comme nts GLUCOSE BEDSIDE (test code = GLUBED) 132 MG/DL 70-110 H Performed by cer tified operator prefinish at [facility] [place] BASIC METABOLIC [id number] 02:36:00* Test Item Value Reference Range Interpretation [...] code = CA) 7.9 mg/dL 8.0-10.5 L [id number] 02:36:00* Test Item Value Reference Range Interpretation Comme nts MAGNESIUM (test code = MAG) 2.83 mg/dL 1.80-2.40 H CBC W/AUTO [id number] 02:24:00* Test Item Value Reference Range Interpretation [...] (test c ode = MDIFF) NO GLUCOSE [id number] 02:23:00* Test Item Value Reference Range Interpretation Comme nts GLUCOSE BEDSIDE (test code = GLUBED) 121 MG/DL 70-110 H Performed by cer yun operator prefinish at [facility] [place] POC ARTERIAL BLOOD [id number] 02:22:00* Test Item Value Reference Range Interpretation Comme nts POC ARTERIAL BLOOD GAS PH (t est code = POCPHA) 7.352 7.35-7.45 N POC ARTERIAL BLOOD GAS PCO2 (test code = XTXZNP1W) 52.2 mmHg 35.0-45 HH POC TCO2 ARTERIAL (test code = POCTCO2) 30.7 POC ARTERIAL BLOOD GAS PO2 ( test code = EDQWH0R) 156.1 mmHg 80-100.0 H POC HCO3 ARTERIAL (test code = ACIFLI0P) 29.0 MMOL/L 22.0-26.0 HH POC BASE EXCESS (test code = POCBEA) 3.4 MMOL/L -4.0-4.0 N POC O2 SATURATION (test code = POCO2S) 99.3 % 90-100 N ABG DELIVERY (test code = RACIEL) HFNC ABG TEMPERATURE (test code = TEMPA) 98.2 F ABG SITE (test code = SITEA) Art Line SHAYLA'S TEST (test code = ALLENS) N/A BASIC METABOLIC [id number] 02:22:00* Test Item Value Reference Range Interpretation [...] = POCGLU) 102 MG/DL 70-110 N HEMOGLOBIN [id number] 02:22:00* Test Item Value Reference Range Interpretation Comme nts HEMOGLOBIN ABG (test code = HGB/ABG) 9.5 G/DL 12.5-16.9 L [id number] 02:22:00* Test Item Value Reference Range Interpretation Comme nts HEMATOCRIT (test code = HCT/ABG) 28 % 37.5-50.7 L POC LACTIC [id number] 02:22:00* Test Item Value Reference Range Interpretation Comme [facility] POC LACTIC ACID (test code = POCLAC) < 0.3 mmol/l 0.9-1.7 L GLUCOSE [id number] 00:53:00* Test Item Value Reference Range Interpretation Comme [facility] GLUCOSE BEDSIDE (test code = GLUBED) 126 MG/DL 70-110 H Performed by cer tified operator prefinish at [facility] - XR CHEST 1 [id number] 00:00:00 [facility] 1950 Sex: M FAX: Luci Wang [phone] [place]: St: [facility] FAX: Evon Garcia [phone] -- Name: TEVIN NYE [facility] : 1950 Age/S: 72/M [address] [place] [address] Unit #: [id number] Loc: G.2201 [place] [address] Phys: Evon Andrew Physic Acct: [id number] Dis Date: Status: ADM IN PHONE #: [phone] Exam Date: 03/08/2023818 FAX #: [phone] Reason: Cardiac Surgery Post Op EXAMS: CPT CODE: [id number] XR CHEST 1 V 73355 PROCEDURE INFORMATION: Exam: XR Chest Exam date [...] Stable. IMPRESSION: Unchanged appearance of the lungs. Electronically Signed by Clarissa Esteves on03/08/2023 at 0835 Reported and signed by: Ezekiel Esteves M.D. CC: Luci Beyer MD; Evon Veloz Physic Kamran Technologist: Vamsi Florez, RT(R); Keila Botello RT(R) Trnscrd Date/Time/By: 03/08/2023 (0835) : By: BukcAB53 PAGE 1 Signed ReportGLUCOSE [id number] 23:01:00* Test Item Value Reference Range Interpretation Comme nts GLUCOSE BEDSIDE (test code = GLUBED) 128 MG/DL 70-110 H Performed by cer tified operator prefinish at [facility] [place] GLUCOSE [id number] 21:38:00* Test Item Value Reference Range Interpretation Comme nts GLUCOSE BEDSIDE (test code = GLUBED) 132 MG/DL 70-110 H Performed by cer tified operator prefinish at [facility] [place] GLUCOSE [id number] 20:10:00* Test Item Value Reference Range Interpretation Comme nts GLUCOSE BEDSIDE (test code = GLUBED) 94 MG/DL 70-110 N Performed by [facility] tified operator prefinish at [facility] [place] BASIC METABOLIC [id number] 18:01:00* Test Item Value Reference Range Interpretation [...] = CA) 8.2 mg/dL 8.0-10.5 N GLUCOSE [id number] 16:10:00* Test Item Value Reference Range Interpretation Comme nts GLUCOSE BEDSIDE (test code = GLUBED) 189 MG/DL 70-110 H Performed by cer tified operator prefinish at [facility] [place] GLUCOSE [id number] 12:07:00* Test Item Value Reference Range Interpretation Comme nts GLUCOSE BEDSIDE (test code = GLUBED) 202 MG/DL 70-110 H Performed by cer tified operator prefinish at [facility] [place] BASIC METABOLIC [id number] 09:31:00* Test Item Value Reference Range Interpretation [...] = CA) 8.3 mg/dL 8.0-10.5 N GLUCOSE [id number] 08:19:00* Test Item Value Reference Range Interpretation Comme nts GLUCOSE BEDSIDE (test code = GLUBED) 183 MG/DL 70-110 H Performed by cer tified operator prefinish at [facility] [place] BASIC METABOLIC [id number] 03:33:00* Test Item Value Reference Range Interpretation [...] mg/dL 8.0-10.5 N COMMENTS: POD #1HEPATIC FUNCTION [id number] 03:33:00* Test Item Value Reference Range Interpretation [...] ALKP) 41 IUnit/L 20-125 N COMMENTS: POD #[id number] 03:33:00* Test Item Value Reference Range Interpretation Comme nts MAGNESIUM (test code = MAG) 2.71 mg/dL 1.80-2.40 H COMMENTS: POD #1CBC W/AUTO [id number] 03:29:00* Test Item Value Reference Range Interpretation [...] ode = MDIFF) NO POC ARTERIAL BLOOD [id number] 02:41:00* Test Item Value Reference Range Interpretation Comme nts POC ARTERIAL BLOOD GAS PH (t est code = POCPHA) 7.361 7.35-7.45 N POC ARTERIAL BLOOD GAS PCO2 (test code = PUQZWD7R) 49.1 mmHg 35.0-45 H POC TCO2 ARTERIAL (test code = POCTCO2) 29.3 POC ARTERIAL BLOOD GAS PO2 ( test code = JHUOT5E) 79.1 mmHg 80-100.0 L POC HCO3 ARTERIAL (test code = BLODUZ1Y) 27.8 MMOL/L 22.0-26.0 H POC BASE EXCESS (test code = POCBEA) 2.3 MMOL/L -4.0-4.0 N POC O2 SATURATION (test code = POCO2S) 94.9 % 90-100 N ABG DELIVERY (test code = RACIEL) HFNC ABG SITE (test code = SITEA) Art Line SHAYLA'S TEST (test code = ALLENS) Positive BASIC METABOLIC [id number] 02:41:00* Test Item Value Reference Range Interpretation [...] = POCGLU) 128 MG/DL 70-110 H HEMOGLOBIN [id number] 02:41:00* Test Item Value Reference Range Interpretation Comme nts HEMOGLOBIN ABG (test code = HGB/ABG) 10.7 G/DL 12.5-16.9 L [id number] 02:41:00* Test Item Value Reference Range Interpretation Comme nts HEMATOCRIT (test code = HCT/ABG) 32 % 37.5-50.7 L GLUCOSE [id number] 01:24:00* Test Item Value Reference Range Interpretation Comme nts GLUCOSE BEDSIDE (test code = GLUBED) 134 MG/DL 70-110 H Performed by wendy ferguson at [facility] - XR CHEST 1 [id number] 00:00:00 [facility] 1950 Sex: M FAX: Luci Wang [phone] [place]: St: [facility] FAX: Evon Garcia y [phone] - Name: TIGRE NYE [place] : 1950 Age/S: 72/M [address] [place] [address] Unit #: [id number] Loc: [place] [address] Phys: Evon Andrew Acct: [id number] Dis Date: Status: ADM IN PHONE #: [phone] Exam Date: 03/07/2023510 FAX #: [phone] Reason: Cardiac Surgery Post Op EXAMS: CPT CODE: [id number] XR CHEST 1 V 37015 PROCEDURE INFORMATION: Exam: XR Chest Exam date [...] field of view. Tubes, catheters and devices: [place] catheter sheath in place. Left thoracostomy drain [...] MG/DL 70-110 H Performed by wendy malcolm operator prefinish at [facility] [place] POC ARTERIAL BLOOD [id number] 21:10:00* Test Item Value Reference Range Interpretation Comme nts POC ARTERIAL BLOOD GAS PH (t est code = POCPHA) 7.385 7.35-7.45 N POC ARTERIAL BLOOD GAS PCO2 (test code = RIOQGJ3Q) 44.2 mmHg 35.0-45 N POC TCO2 ARTERIAL (test code = POCTCO2) 27.7 POC ARTERIAL BLOOD GAS PO2 ( test code = DDNPD5T) 75.5 mmHg 80-100.0 L POC HCO3 ARTERIAL (test code = WOLCXB0Z) 26.4 MMOL/L 22.0-26.0 H POC BASE EXCESS (test code = POCBEA) 1.4 MMOL/L -4.0-4.0 N POC O2 SATURATION (test code = POCO2S) 94.5 % 90-100 N ABG DELIVERY (test code = RACIEL) Cannula ABG TEMPERATURE (test code = TEMPA) 99 F ABG SITE (test code = SITEA) Art Line SHAYLA'S TEST (test code = ALLENS) Positive BASIC METABOLIC [id number] 21:10:00* Test Item Value Reference Range Interpretation [...] = POCGLU) 213 MG/DL 70-110 H HEMOGLOBIN [id number] 21:10:00* Test Item Value Reference Range Interpretation Comme nts HEMOGLOBIN ABG (test code = HGB/ABG) 10.5 G/DL 12.5-16.9 L [id number] 21:10:00* Test Item Value Reference Range Interpretation Comme nts HEMATOCRIT (test code = HCT/ABG) 31 % 37.5-50.7 L BASIC METABOLIC [id number] 20:32:00* Test Item Value Reference Range Interpretation [...] code = CA) 8.4 mg/dL 8.0-10.5 N [id number] 20:32:00* Test Item Value Reference Range Interpretation Comme nts MAGNESIUM (test code = MAG) 2.53 mg/dL 1.80-2.40 H CBC W/AUTO [id number] 16:47:00* Test Item Value Reference Range Interpretation [...] ode = MDIFF) NO POC ARTERIAL BLOOD [id number] 16:14:00* Test Item Value Reference Range Interpretation Comme nts POC ARTERIAL BLOOD GAS PH (t est code = POCPHA) 7.331 7.35-7.45 L POC ARTERIAL BLOOD GAS PCO2 (test code = BLYNXW8G) 51.3 mmHg 35.0-45 HH POC TCO2 ARTERIAL (test code = POCTCO2) 28.5 POC ARTERIAL BLOOD GAS PO2 ( test code = MKKKU2J) 112.0 mmHg 80-100.0 H POC HCO3 ARTERIAL (test code = BFPKYT4Y) 27.0 MMOL/L 22.0-26.0 H POC BASE EXCESS (test code = POCBEA) 1.2 MMOL/L -4.0-4.0 N POC O2 SATURATION (test code = POCO2S) 97.8 % 90-100 N ABG DELIVERY (test code = RACIEL) Cannula ABG TEMPERATURE (test code = TEMPA) 99.3 F ABG SITE (test code = SITEA) Art Line BASIC METABOLIC [id number] 16:14:00* Test Item Value Reference Range Interpretation [...] = POCGLU) 131 MG/DL 70-110 H HEMOGLOBIN [id number] 16:14:00* Test Item Value Reference Range Interpretation Comme nts HEMOGLOBIN ABG (test code = HGB/ABG) 10.0 G/DL 12.5-16.9 L [id number] 16:14:00* Test Item Value Reference Range Interpretation Comme nts HEMATOCRIT (test code = HCT/ABG) 29 % 37.5-50.7 L POC LACTIC [id number] 16:14:00* Test Item Value Reference Range Interpretation Comme nts POC LACTIC ACID (test code = POCLAC) 0.4 mmol/l 0.9-1.7 L GLUCOSE [id number] 14:02:00* Test Item Value Reference Range Interpretation Fabiola catherine GLUCOSE BEDSIDE (test code = GLUBED) 176 MG/DL 70-110 H Performed by wendy ferguson at [facility] [id number] 13:38:00* Test Item Value Reference Range Interpretation Comments SURGICAL (test code = SR) RUN DATE: 03/06/23 [place] - LAB PAGE 1 RUN TIME: 1338 Specimen Inquiry RUN USER: INTERFACE PATIENT: TEVIN NYE LOC: [facility] U #: [id number] AGE/SX: 72/M ROOM: [facility]23[facility]: Luci Beyer : 52 BED: 1 DIS: STATUS: ADM IN TLOC: SPEC #: [id number] RECD: 03/05/23-1015 STATUS: GILBERT FORREST #: [id number] BHAVANI: 03/04/23- SUBM DR: Luci Beyer MD ENTERED: 03/05/23-1015 SP TYPE: SURGICAL OTHR DR: No Primary or Family Physician Self Referred Noé Madrid MD, Molham MD Alnas, MajdORDERED: [id number], ANATOMIC SPEC COPIES TO: No Primary or Family Physician Self Referred Noé Madrid MD [address] [place] [address] Anibal Haynes MD [address] [place] [address] Sharmila Alan [address] [place] [address] [place] [address] Luci Beyer MD [address] [facility]. [address] [place] [address] PROCEDURES: [id number] (03/05/23-1015) TISSUES: A. ATRIUM - LEFT ATRIAL APPENDAGE CLINICAL HISTORY SAME CONTINUED ON NEXT PAGE RUN DATE: 03/06/23 [place] - LAB PAGE 2 RUN TIME: 1338 Specimen Inquiry RUN USER: INTERFACE SPEC #: [id number] PATIENT: TEVIN NYE #[id number] (Continued) - FINAL DIAGNOSIS Heart, left atrial appendage, submitted: Cardiac muscle with some degenerative changes,consistent with atrial appendage. GROSS DESCRIPTION Received in formalin labeled left atrial appendage is a 3.5 x 2 x 1 cm portion of cysticmuscular tissue with attached adipose submitted (A). Technical component performed at [facility],[address] [place] [address] Unless gross only, the diagnosis is based [...] Su 03/06/23 1338 END OF REPORT GLUCOSE [id number] 12:19:00* Test Item Value Reference Range Interpretation Comme nts GLUCOSE BEDSIDE (test code = GLUBED) 152 MG/DL 70-110 H Performed by wendy malcolm operator prefinish at [facility] [place] POC ARTERIAL BLOOD [id number] 10:46:00* Test Item Value Reference Range Interpretation Comme nts POC ARTERIAL BLOOD GAS PH (t est code = POCPHA) 7.320 7.35-7.45 L POC ARTERIAL BLOOD GAS PCO2 (test code = MOXSKF4W) 51.3 mmHg 35.0-45 HH POC TCO2 ARTERIAL (test code = POCTCO2) 27.9 POC ARTERIAL BLOOD GAS PO2 ( test code = VKTIR2R) 86.5 mmHg 80-100.0 N POC HCO3 ARTERIAL (test code = QWJIDQ5V) 26.3 MMOL/L 22.0-26.0 H POC BASE EXCESS (test code = POCBEA) 0.3 MMOL/L -4.0-4.0 N POC O2 SATURATION (test code = POCO2S) 95.4 % 90-100 N ABG DELIVERY (test code = RACIEL) Cannula ABG TEMPERATURE (test code = TEMPA) 99.1 F ABG SITE (test code = SITEA) Art Line BASIC METABOLIC [id number] 10:46:00* Test Item Value Reference Range Interpretation [...] = POCGLU) 146 MG/DL 70-110 H HEMOGLOBIN [id number] 10:46:00* Test Item Value Reference Range Interpretation Comme nts HEMOGLOBIN ABG (test code = HGB/ABG) 8.6 G/DL 12.5-16.9 L [id number] 10:46:00* Test Item Value Reference Range Interpretation Comme nts HEMATOCRIT (test code = HCT/ABG) 25 % 37.5-50.7 L POC LACTIC [id number] 10:46:00* Test Item Value Reference Range Interpretation Comme nts POC LACTIC ACID (test code = POCLAC) 0.7 mmol/l 0.9-1.7 L GLUCOSE [id number] 08:47:00* Test Item Value Reference Range Interpretation Comme nts GLUCOSE BEDSIDE (test code = GLUBED) 130 MG/DL 70-110 H Performed by cer yun operator prefinish at [facility] [place] POC ARTERIAL BLOOD [id number] 05:54:00* Test Item Value Reference Range Interpretation Comme nts POC ARTERIAL BLOOD GAS PH (t est code = POCPHA) 7.318 7.35-7.45 L POC ARTERIAL BLOOD GAS PCO2 (test code = CAFWRV9M) 52.4 mmHg 35.0-45 HH POC TCO2 ARTERIAL (test code = POCTCO2) 28.4 POC ARTERIAL BLOOD GAS PO2 ( test code = OOABX2X) 74.1 mmHg 80-100.0 L POC HCO3 ARTERIAL (test code = GAXSAW6M) 26.8 MMOL/L 22.0-26.0 H POC BASE EXCESS (test code = POCBEA) 0.7 MMOL/L -4.0-4.0 N POC O2 SATURATION (test code = POCO2S) 93.1 % 90-100 N ABG DELIVERY (test code = RACIEL) 2L HFNC ABG SITE (test code = SITEA) Art Line BASIC METABOLIC [id number] 05:54:00* Test Item Value Reference Range Interpretation [...] = POCGLU) 128 MG/DL 70-110 H HEMOGLOBIN [id number] 05:54:00* Test Item Value Reference Range Interpretation Comme nts HEMOGLOBIN ABG (test code = HGB/ABG) 7.0 G/DL 12.5-16.9 L [id number] 05:54:00* Test Item Value Reference Range Interpretation Comme nts HEMATOCRIT (test code = HCT/ABG) 21 % 37.5-50.7 L POC LACTIC [id number] 05:54:00* Test Item Value Reference Range Interpretation Comme nts POC LACTIC ACID (test code = POCLAC) 0.3 mmol/l 0.9-1.7 L BASIC METABOLIC [id number] 03:47:00* Test Item Value Reference Range Interpretation [...] mg/dL 8.0-10.5 N COMMENTS: POD #1HEPATIC FUNCTION [id number] 03:47:00* Test Item Value Reference Range Interpretation [...] ALKP) 30 IUnit/L 20-125 N COMMENTS: POD #[id number] 03:47:00* Test Item Value Reference Range Interpretation Comme nts MAGNESIUM (test code = MAG) 2.60 mg/dL 1.80-2.40 H COMMENTS: POD #1POC ARTERIAL BLOOD [id number] 01:35:00* Test Item Value Reference Range Interpretation Comme nts POC ARTERIAL BLOOD GAS PH (t est code = POCPHA) 7.318 7.35-7.45 L POC ARTERIAL BLOOD GAS PCO2 (test code = QGZMXV9X) 54.4 mmHg 35.0-45 HH POC TCO2 ARTERIAL (test code = POCTCO2) 29.5 POC ARTERIAL BLOOD GAS PO2 ( test code = QYKXV1Y) 147.3 mmHg 80-100.0 H POC HCO3 ARTERIAL (test code = BPZFHE8F) 27.9 MMOL/L 22.0-26.0 H POC BASE EXCESS (test code = POCBEA) 1.7 MMOL/L -4.0-4.0 N POC O2 SATURATION (test code = POCO2S) 99.0 % 90-100 N ABG DELIVERY (test code = RACIEL) 4L HFNC ABG SITE (test code = SITEA) Art Line BASIC METABOLIC [id number] 01:35:00* Test Item Value Reference Range Interpretation [...] = POCGLU) 114 MG/DL 70-110 H HEMOGLOBIN [id number] 01:35:00* Test Item Value Reference Range Interpretation Comme nts HEMOGLOBIN ABG (test code = HGB/ABG) 6.2 G/DL 12.5-16.9 L [id number] 01:35:00* Test Item Value Reference Range Interpretation Comme nts HEMATOCRIT (test code = HCT/ABG) 18 % 37.5-50.7 L POC LACTIC [id number] 01:35:00* Test Item Value Reference Range Interpretation Comme nts POC LACTIC ACID (test code = POCLAC) < 0.3 mmol/l 0.9-1.7 L CBC W/AUTO [id number] 01:34:00* Test Item Value Reference Range Interpretation [...] = MDIFF) NO - XR CHEST 1 [id number] 00:00:00 [facility] 1950 Sex: M FAX: Luci Wang [phone] [place]: St: [facility] FAX: Evon Garcia Phy [phone] -- Name: TEVIN NYE [facility] : 1950 Age/S: 72/M [address] [place], [place] [address]vd Unit #: [id number] Loc: [place] [address] Phys: Evon Andrew Acct: [id number] Dis Date: Status: ADM IN PHONE #: [phone] Exam Date: 03/06/2023 06 FAX #: [phone] Reason: Cardiac Surgery Post Op EXAMS: CPT CODE: [id number] XR CHEST 1 V 06086 PROCEDURE INFORMATION: Exam: XR Chest Exam date [...] 03/06/2023 (804) PAGE 1 Signed ReportCBC W/AUTO [id number] 23:46:00* Test Item Value Reference Range Interpretation [...] c ode = MDIFF) NO BASIC METABOLIC [id number] 23:21:00* Test Item Value Reference Range Interpretation [...] code = CA) 8.8 mg/dL 8.0-10.5 N [id number] 23:21:00* Test Item Value Reference Range Interpretation Comme nts PHOSPHOROUS (test code = PHOS) 5.2 MG/DL 2.5-4.9 H [id number] 23:21:00* Test Item Value Reference Range Interpretation Comme nts MAGNESIUM (test code = MAG) 2.69 mg/dL 1.80-2.40 H POC ARTERIAL BLOOD [id number] 23:18:00* Test Item Value Reference Range Interpretation Comme nts POC ARTERIAL BLOOD GAS PH (t est code = POCPHA) 7.354 7.35-7.45 N POC ARTERIAL BLOOD GAS PCO2 (test code = YOZHCH6Y) 49.1 mmHg 35.0-45 H POC TCO2 ARTERIAL (test code = POCTCO2) 28.9 POC ARTERIAL BLOOD GAS PO2 ( test code = ELLGX3Q) 94.7 mmHg 80-100.0 N POC HCO3 ARTERIAL (test code = INOXWW1Z) 27.4 MMOL/L 22.0-26.0 H POC BASE EXCESS (test code = POCBEA) 1.8 MMOL/L -4.0-4.0 N POC O2 SATURATION (test code = POCO2S) 96.9 % 90-100 N ABG DELIVERY (test code = RACIEL) 4L HFNC ABG SITE (test code = SITEA) Art Line BASIC METABOLIC [id number] 23:18:00* Test Item Value Reference Range Interpretation [...] = POCGLU) 116 MG/DL 70-110 H HEMOGLOBIN [id number] 23:18:00* Test Item Value Reference Range Interpretation Comme nts HEMOGLOBIN ABG (test code = HGB/ABG) 6.8 G/DL 12.5-16.9 L [id number] 23:18:00* Test Item Value Reference Range Interpretation Comme nts HEMATOCRIT (test code = HCT/ABG) 20 % 37.5-50.7 L POC LACTIC [id number] 23:18:00* Test Item Value Reference Range Interpretation Comme nts POC LACTIC ACID (test code = POCLAC) 0.7 mmol/l 0.9-1.7 L POC ARTERIAL BLOOD [id number] 22:10:00* Test Item Value Reference Range Interpretation Comme nts POC ARTERIAL BLOOD GAS PH (t est code = POCPHA) 7.341 7.35-7.45 L POC ARTERIAL BLOOD GAS PCO2 (test code = QXCBBQ4I) 54.8 mmHg 35.0-45 HH POC TCO2 ARTERIAL (test code = POCTCO2) 31.3 POC ARTERIAL BLOOD GAS PO2 ( test code = HOHNW1Q) 91.2 mmHg 80-100.0 N POC HCO3 ARTERIAL (test code = FRKGRT4G) 29.6 MMOL/L 22.0-26.0 HH POC BASE EXCESS (test code = POCBEA) 3.9 MMOL/L -4.0-4.0 N POC O2 SATURATION (test code = POCO2S) 96.3 % 90-100 N BASIC METABOLIC [id number] 22:10:00* Test Item Value Reference Range Interpretation [...] = POCGLU) 104 MG/DL 70-110 N HEMOGLOBIN [id number] 22:10:00* Test Item Value Reference Range Interpretation Comme nts HEMOGLOBIN ABG (test code = HGB/ABG) 7.8 G/DL 12.5-16.9 L [id number] 22:10:00* Test Item Value Reference Range Interpretation Comme nts HEMATOCRIT (test code = HCT/ABG) 23 % 37.5-50.7 L POC LACTIC [id number] 22:10:00* Test Item Value Reference Range Interpretation Comme nts POC LACTIC ACID (test code = POCLAC) 0.4 mmol/l 0.9-1.7 L GLUCOSE [id number] 20:35:00* Test Item Value Reference Range Interpretation Comme nts GLUCOSE BEDSIDE (test code = GLUBED) 124 MG/DL 70-110 H Performed by cer tified operator prefinish at [facility] [place] POC ARTERIAL BLOOD [id number] 20:23:00* Test Item Value Reference Range Interpretation Comme nts POC ARTERIAL BLOOD GAS PH (t est code = POCPHA) 7.342 7.35-7.45 L POC ARTERIAL BLOOD GAS PCO2 (test code = FTKXDG7E) 53.0 mmHg 35.0-45 HH POC TCO2 ARTERIAL (test code = POCTCO2) 30.4 POC ARTERIAL BLOOD GAS PO2 ( test code = HJBWV2I) 202.6 mmHg 80-100.0 HH POC HCO3 ARTERIAL (test code = WVAOSC1B) 28.7 MMOL/L 22.0-26.0 HH POC BASE EXCESS (test code = POCBEA) 3.0 MMOL/L -4.0-4.0 N POC O2 SATURATION (test code = POCO2S) 99.7 % 90-100 N FIO2 (test code = FIO2A) 60 % PaO2/FiO2 (test code = UNJ6SWF7) 337.66 mm/Hg ABG DELIVERY (test code = RACIEL) AVAPS ABG SITE (test code = SITEA) Art Line BASIC METABOLIC [id number] 20:23:00* Test Item Value Reference Range Interpretation [...] = POCGLU) 116 MG/DL 70-110 H HEMOGLOBIN [id number] 20:23:00* Test Item Value Reference Range Interpretation Comme nts HEMOGLOBIN ABG (test code = HGB/ABG) 7.6 G/DL 12.5-16.9 L [id number] 20:23:00* Test Item Value Reference Range Interpretation Comme nts HEMATOCRIT (test code = HCT/ABG) 22 % 37.5-50.7 L POC LACTIC [id number] 20:23:00* Test Item Value Reference Range Interpretation Comme nts POC LACTIC ACID (test code = POCLAC) < 0.3 mmol/l 0.9-1.7 L UR SODIUM [id number] 19:27:00* Test Item Value Reference Range Interpretation Comme nts UR SODIUM RANDOM (test code = JERSON) 14 MEQ/L The Reference Range and Method Performance specificationshave not been established for this fluid. The test resultshould be correlated into the clinical context forinterpretation. UR CREATININE [id number] 19:27:00* Test Item Value Reference Range Interpretation Comme nts UR CREATININE RANDOM (test code = CREATU) 53.7 mg/dL The Reference Ra nge and Method Performance specificationshave not been established for this fluid. The test resultshould be correlated into the clinical context forinterpretation. POC ARTERIAL BLOOD [id number] 18:16:00* Test Item Value Reference Range Interpretation Comme nts POC ARTERIAL BLOOD GAS PH (t est code = POCPHA) 7.339 7.35-7.45 L POC ARTERIAL BLOOD GAS PCO2 (test code = LHSHTQ1H) 55.2 mmHg 35.0-45 HH POC TCO2 ARTERIAL (test code = POCTCO2) 31.4 POC ARTERIAL BLOOD GAS PO2 ( test code = UDIOF6S) 85.1 mmHg 80-100.0 N POC HCO3 ARTERIAL (test code = WHPQDQ1C) 29.7 MMOL/L 22.0-26.0 HH POC BASE EXCESS (test code = POCBEA) 4.0 MMOL/L -4.0-4.0 N POC O2 SATURATION (test code = POCO2S) 95.5 % 90-100 N FIO2 (test code = FIO2A) 60.0 % PaO2/FiO2 (test code = VYM0IMC5) 141.80 mm/Hg ABG DELIVERY (test code = RACIEL) BiPAP ABG SITE (test code = SITEA) Art Line SHAYLA'S TEST (test code = ALLENS) N/A BASIC METABOLIC [id number] 18:16:00* Test Item Value Reference Range Interpretation [...] = POCGLU) 186 MG/DL 70-110 H HEMOGLOBIN [id number] 18:16:00* Test Item Value Reference Range Interpretation Comme nts HEMOGLOBIN ABG (test code = HGB/ABG) 8.3 G/DL 12.5-16.9 L [id number] 18:16:00* Test Item Value Reference Range Interpretation Comme nts HEMATOCRIT (test code = HCT/ABG) 24 % 37.5-50.7 L POC LACTIC [id number] 18:16:00* Test Item Value Reference Range Interpretation Comme nts POC LACTIC ACID (test code = POCLAC) 0.8 mmol/l 0.9-1.7 L BASIC METABOLIC [id number] 17:33:00* Test Item Value Reference Range Interpretation [...] code = CA) 9.0 mg/dL 8.0-10.5 N [id number] 17:33:00* Test Item Value Reference Range Interpretation Comme nts MAGNESIUM (test code = MAG) 2.58 mg/dL 1.80-2.40 H CALCIUM [id number] 17:33:00* Test Item Value Reference Range Interpretation Comme nts CALCIUM IONIZED (test code = BIBIANA) 1.11 MMOL/L 1.09-1.30 N GLUCOSE [id number] 16:08:00* Test Item Value Reference Range Interpretation Comme nts GLUCOSE BEDSIDE (test code = GLUBED) 210 MG/DL 70-110 H Performed by cer yun operator prefinish at [facility] [place] POC ARTERIAL BLOOD [id number] 15:47:00* Test Item Value Reference Range Interpretation Comme nts POC ARTERIAL BLOOD GAS PH (t est code = POCPHA) 7.275 7.35-7.45 LL POC ARTERIAL BLOOD GAS PCO2 (test code = GJWJGB0F) 62.7 mmHg 35.0-45 HH POC TCO2 ARTERIAL (test code = POCTCO2) 31.0 POC ARTERIAL BLOOD GAS PO2 ( test code = CFLRA4E) 110.1 mmHg 80-100.0 H POC HCO3 ARTERIAL (test code = ABPCPA7D) 29.1 MMOL/L 22.0-26.0 HH POC BASE EXCESS (test code = POCBEA) 2.3 MMOL/L -4.0-4.0 N POC O2 SATURATION (test code = POCO2S) 97.4 % 90-100 N ABG DELIVERY (test code = RACIEL) BiPAP ABG SITE (test code = SITEA) Art Line BASIC METABOLIC [id number] 15:47:00* Test Item Value Reference Range Interpretation [...] = POCGLU) 196 MG/DL 70-110 H HEMOGLOBIN [id number] 15:47:00* Test Item Value Reference Range Interpretation Comme nts HEMOGLOBIN ABG (test code = HGB/ABG) 8.4 G/DL 12.5-16.9 L [id number] 15:47:00* Test Item Value Reference Range Interpretation Comme nts HEMATOCRIT (test code = HCT/ABG) 25 % 37.5-50.7 L POC LACTIC [id number] 15:47:00* Test Item Value Reference Range Interpretation Comme nts POC LACTIC ACID (test code = POCLAC) 0.5 mmol/l 0.9-1.7 L POC ARTERIAL BLOOD [id number] 14:48:00* Test Item Value Reference Range Interpretation Comme nts POC ARTERIAL BLOOD GAS PH (t est code = POCPHA) 7.317 7.35-7.45 L POC ARTERIAL BLOOD GAS PCO2 (test code = POUWES5P) 55.6 mmHg 35.0-45 HH POC TCO2 ARTERIAL (test code = POCTCO2) 30.1 POC ARTERIAL BLOOD GAS PO2 ( test code = UKVBB9Y) 185.9 mmHg 80-100.0 H POC HCO3 ARTERIAL (test code = FOHVVK5K) 28.4 MMOL/L 22.0-26.0 HH POC BASE EXCESS (test code = POCBEA) 2.3 MMOL/L -4.0-4.0 N POC O2 SATURATION (test code = POCO2S) 99.5 % 90-100 N FIO2 (test code = FIO2A) 40 % PaO2/FiO2 (test code = SGE9BIV8) 464.75 mm/Hg ABG DELIVERY (test code = [...] (test code = ALLENS) N/A BASIC METABOLIC [id number] 14:48:00* Test Item Value Reference Range Interpretation [...] = POCGLU) 223 MG/DL 70-110 H HEMOGLOBIN [id number] 14:48:00* Test Item Value Reference Range Interpretation Comme nts HEMOGLOBIN ABG (test code = HGB/ABG) 7.9 G/DL 12.5-16.9 L [id number] 14:48:00* Test Item Value Reference Range Interpretation Comme nts HEMATOCRIT (test code = HCT/ABG) 23 % 37.5-50.7 L POC LACTIC [id number] 14:48:00* Test Item Value Reference Range Interpretation Comme nts POC LACTIC ACID (test code = POCLAC) 0.8 mmol/l 0.9-1.7 L CBC W/AUTO [id number] 11:05:00* Test Item Value Reference Range Interpretation [...] ode = MDIFF) NO POC ARTERIAL BLOOD [id number] 10:51:00* Test Item Value Reference Range Interpretation Comme nts POC ARTERIAL BLOOD GAS PH (t est code = POCPHA) 7.327 7.35-7.45 L POC ARTERIAL BLOOD GAS PCO2 (test code = CZZPEY4N) 63.4 mmHg 35.0-45 HH POC TCO2 ARTERIAL (test code = POCTCO2) 35.2 POC ARTERIAL BLOOD GAS PO2 ( test code = ZNSRU9Q) 108.3 mmHg 80-100.0 H POC HCO3 ARTERIAL (test code = CROWUL8G) 33.2 MMOL/L 22.0-26.0 HH POC BASE EXCESS (test code = POCBEA) 7.2 MMOL/L -4.0-4.0 H POC O2 SATURATION (test code = POCO2S) 97.6 % 90-100 N FIO2 (test code = FIO2A) 30 % PaO2/FiO2 (test code = QUU3XTK7) 361.00 mm/Hg ABG DELIVERY (test code = RACIEL) BiPAP ABG VENT RESP RATE (test cod e = RRA) 24 /MIN ABG PEEP (test code = PEEPA) 7 cmH2O ABG PRESSURE SUPPORT (test c ode = PSABG) 15 cmH2O ABG TEMPERATURE (test code = TEMPA) 98.6 F ABG SITE (test code = SITEA) Art Line SHAYLA'S TEST (test code = ALLENS) N/A BASIC METABOLIC [id number] 10:51:00* Test Item Value Reference Range Interpretation [...] = POCGLU) 88 MG/DL 70-110 N HEMOGLOBIN [id number] 10:51:00* Test Item Value Reference Range Interpretation Comme nts HEMOGLOBIN ABG (test code = HGB/ABG) 8.0 G/DL 12.5-16.9 L [id number] 10:51:00* Test Item Value Reference Range Interpretation Comme nts HEMATOCRIT (test code = HCT/ABG) 24 % 37.5-50.7 L POC LACTIC [id number] 10:51:00* Test Item Value Reference Range Interpretation Comme nts POC LACTIC ACID (test code = POCLAC) 0.5 mmol/l 0.9-1.7 L GLUCOSE [id number] 10:17:00* Test Item Value Reference Range Interpretation Comme nts GLUCOSE BEDSIDE (test code = GLUBED) 110 MG/DL 70-110 N Performed by cer yun operator prefinish at [facility] [place] BASIC METABOLIC [id number] 08:28:00* Test Item Value Reference Range Interpretation [...] code = CA) 8.7 mg/dL 8.0-10.5 N [id number] 08:28:00* Test Item Value Reference Range Interpretation Comme nts MAGNESIUM (test code = MAG) 2.35 mg/dL 1.80-2.40 N CALCIUM [id number] 08:28:00* Test Item Value Reference Range Interpretation Comme nts CALCIUM IONIZED (test code = BIBIANA) 1.14 MMOL/L 1.09-1.30 N POC ARTERIAL BLOOD [id number] 07:46:00* Test Item Value Reference Range Interpretation Comme nts POC ARTERIAL BLOOD GAS PH (t est code = POCPHA) 7.343 7.35-7.45 L POC ARTERIAL BLOOD GAS PCO2 (test code = SGAQIG1D) 58.9 mmHg 35.0-45 HH POC TCO2 ARTERIAL (test code = POCTCO2) 33.8 POC ARTERIAL BLOOD GAS PO2 ( test code = IEWVK1L) 82.1 mmHg 80-100.0 N POC HCO3 ARTERIAL (test code = DNJTSX4V) 32.0 MMOL/L 22.0-26.0 HH POC BASE EXCESS (test code = POCBEA) 6.3 MMOL/L -4.0-4.0 H POC O2 SATURATION (test code = POCO2S) 95.1 % 90-100 N FIO2 (test code = FIO2A) 30 % PaO2/FiO2 (test code = OEY2HDT8) 273.66 mm/Hg ABG DELIVERY (test code = RACIEL) Bagging ABG VENT MODE (test code = MODEA) CPAP/PS ABG TEMPERATURE (test code = TEMPA) 98.3 F ABG SITE (test code = SITEA) Art Line SHAYLA'S TEST (test code = ALLENS) N/A BASIC METABOLIC [id number] 07:46:00* Test Item Value Reference Range Interpretation [...] = POCGLU) 113 MG/DL 70-110 H HEMOGLOBIN [id number] 07:46:00* Test Item Value Reference Range Interpretation Comme nts HEMOGLOBIN ABG (test code = HGB/ABG) 7.8 G/DL 12.5-16.9 L [id number] 07:46:00* Test Item Value Reference Range Interpretation Comme nts HEMATOCRIT (test code = HCT/ABG) 23 % 37.5-50.7 L POC LACTIC [id number] 07:46:00* Test Item Value Reference Range Interpretation Comme nts POC LACTIC ACID (test code = POCLAC) 0.9 mmol/l 0.9-1.7 N POC ARTERIAL BLOOD [id number] 06:42:00* Test Item Value Reference Range Interpretation Comme nts POC ARTERIAL BLOOD GAS PH (t est code = POCPHA) 7.322 7.35-7.45 L POC ARTERIAL BLOOD GAS PCO2 (test code = MQZFYT9N) 58.5 mmHg 35.0-45 HH POC TCO2 ARTERIAL (test code = POCTCO2) 32.1 POC ARTERIAL BLOOD GAS PO2 ( test code = RPUGK5Q) 105.9 mmHg 80-100.0 H POC HCO3 ARTERIAL (test code = BTGEJT3T) 30.3 MMOL/L 22.0-26.0 HH POC BASE EXCESS (test code = POCBEA) 4.2 MMOL/L -4.0-4.0 H POC O2 SATURATION (test code = POCO2S) 97.4 % 90-100 N FIO2 (test code = FIO2A) 35 % PaO2/FiO2 (test code = AMW6SVX3) 302.57 mm/Hg ABG DELIVERY (test code = RACIEL) BiPAP ABG VENT MODE (test code = MODEA) 12/5 ABG SITE (test code = SITEA) Art Line BASIC METABOLIC [id number] 06:42:00* Test Item Value Reference Range Interpretation [...] = POCGLU) 126 MG/DL 70-110 H HEMOGLOBIN [id number] 06:42:00* Test Item Value Reference Range Interpretation Comme nts HEMOGLOBIN ABG (test code = HGB/ABG) 7.1 G/DL 12.5-16.9 L [id number] 06:42:00* Test Item Value Reference Range Interpretation Comme nts HEMATOCRIT (test code = HCT/ABG) 21 % 37.5-50.7 L POC LACTIC [id number] 06:42:00* Test Item Value Reference Range Interpretation Comme nts POC LACTIC ACID (test code = POCLAC) 1.0 mmol/l 0.9-1.7 N POC ARTERIAL BLOOD [id number] 05:35:00* Test Item Value Reference Range Interpretation Comme nts POC ARTERIAL BLOOD GAS PH (t est code = POCPHA) 7.259 7.35-7.45 LL POC ARTERIAL BLOOD GAS PCO2 (test code = HGBVRD1W) 66.1 mmHg 35.0-45 HH POC TCO2 ARTERIAL (test code = POCTCO2) 31.7 POC ARTERIAL BLOOD GAS PO2 ( test code = JASUV1P) 106.5 mmHg 80-100.0 H POC HCO3 ARTERIAL (test code = XRNUFL4B) 29.6 MMOL/L 22.0-26.0 HH POC BASE EXCESS (test code = POCBEA) 2.5 MMOL/L -4.0-4.0 N POC O2 SATURATION (test code = POCO2S) 96.9 % 90-100 N FIO2 (test code = FIO2A) 40 % PaO2/FiO2 (test code = KXR9OFC9) 266.25 mm/Hg ABG DELIVERY (test code = RACIEL) BiPAP ABG VENT MODE (test code = MODEA) 12/5 ABG SITE (test code = SITEA) Art Line BASIC METABOLIC [id number] 05:35:00* Test Item Value Reference Range Interpretation [...] = POCGLU) 146 MG/DL 70-110 H HEMOGLOBIN [id number] 05:35:00* Test Item Value Reference Range Interpretation Comme nts HEMOGLOBIN ABG (test code = HGB/ABG) 7.4 G/DL 12.5-16.9 L [id number] 05:35:00* Test Item Value Reference Range Interpretation Comme nts HEMATOCRIT (test code = HCT/ABG) 22 % 37.5-50.7 L POC LACTIC [id number] 05:35:00* Test Item Value Reference Range Interpretation Comme nts POC LACTIC ACID (test code = POCLAC) 1.7 mmol/l 0.9-1.7 N POC ARTERIAL BLOOD [id number] 04:59:00* Test Item Value Reference Range Interpretation Comme nts POC ARTERIAL BLOOD GAS PH (t est code = POCPHA) 7.218 7.35-7.45 LL POC ARTERIAL BLOOD GAS PCO2 (test code = XYZHND4P) 77.2 mmHg 35.0-45 HH POC TCO2 ARTERIAL (test code = POCTCO2) 33.8 POC ARTERIAL BLOOD GAS PO2 ( test code = NARBL1B) 103.7 mmHg 80-100.0 H POC HCO3 ARTERIAL (test code = LDQFJB5V) 31.5 MMOL/L 22.0-26.0 HH POC BASE EXCESS (test code = POCBEA) 3.7 MMOL/L -4.0-4.0 N POC O2 SATURATION (test code = POCO2S) 96.2 % 90-100 N ABG VENT MODE (test code = MODEA) 4L HFNC ABG SITE (test code = SITEA) Art Line BASIC METABOLIC [id number] 04:59:00* Test Item Value Reference Range Interpretation [...] = POCGLU) 126 MG/DL 70-110 H HEMOGLOBIN [id number] 04:59:00* Test Item Value Reference Range Interpretation Comme nts HEMOGLOBIN ABG (test code = HGB/ABG) 8.0 G/DL 12.5-16.9 L [id number] 04:59:00* Test Item Value Reference Range Interpretation Comme nts HEMATOCRIT (test code = HCT/ABG) 24 % 37.5-50.7 L POC LACTIC [id number] 04:59:00* Test Item Value Reference Range Interpretation Comme nts POC LACTIC ACID (test code = POCLAC) 2.0 mmol/l 0.9-1.7 H BASIC METABOLIC [id number] 02:47:00* Test Item Value Reference Range Interpretation [...] mg/dL 8.0-10.5 N COMMENTS: POD #1HEPATIC FUNCTION [id number] 02:47:00* Test Item Value Reference Range Interpretation [...] ALKP) 26 IUnit/L 20-125 N COMMENTS: POD #[id number] 02:47:00* Test Item Value Reference Range Interpretation Comme nts MAGNESIUM (test code = MAG) 2.66 mg/dL 1.80-2.40 H COMMENTS: POD #1LACTIC ACID 2ND [id number] 02:43:00* Test Item Value Reference Range Interpretation Comme nts LACTIC ACID 2ND REPEAT (test code = LACT2) 2.4 mmol/L 0.4-1.9 H CBC W/AUTO [id number] 02:21:00* Test Item Value Reference Range Interpretation [...] ode = MDIFF) NO POC ARTERIAL BLOOD [id number] 02:16:00* Test Item Value Reference Range Interpretation Comme nts POC ARTERIAL BLOOD GAS PH (t est code = POCPHA) 7.312 7.35-7.45 L POC ARTERIAL BLOOD GAS PCO2 (test code = PYNDAU3M) 65.1 mmHg 35.0-45 HH POC TCO2 ARTERIAL (test code = POCTCO2) 35.0 POC ARTERIAL BLOOD GAS PO2 ( test code = DOOZZ6M) 97.2 mmHg 80-100.0 N POC HCO3 ARTERIAL (test code = QGNSHH8R) 33.0 MMOL/L 22.0-26.0 HH POC BASE EXCESS (test code = POCBEA) 6.7 MMOL/L -4.0-4.0 H POC O2 SATURATION (test code = POCO2S) 96.5 % 90-100 N ABG DELIVERY (test code = RACIEL) 4L HFNC ABG SITE (test code = SITEA) Art Line BASIC METABOLIC [id number] 02:16:00* Test Item Value Reference Range Interpretation [...] = POCGLU) 121 MG/DL 70-110 H HEMOGLOBIN [id number] 02:16:00* Test Item Value Reference Range Interpretation Comme nts HEMOGLOBIN ABG (test code = HGB/ABG) 7.2 G/DL 12.5-16.9 L [id number] 02:16:00* Test Item Value Reference Range Interpretation Comme nts HEMATOCRIT (test code = HCT/ABG) 21 % 37.5-50.7 L POC LACTIC [id number] 02:16:00* Test Item Value Reference Range Interpretation Comme nts POC LACTIC ACID (test code = POCLAC) 1.8 mmol/l 0.9-1.7 H LACTIC ACID [id number] 00:31:00* Test Item Value Reference Range Interpretation Comme nts LACTIC ACID REPEAT (test cod e = LACTR) 4.2 mmol/l 0.4-1.9 HH - XR ABDOMEN 1V (KUB)2023-03-05 00:00:00 [facility] : 1950 Sex: M FAX: Luci Wang [phone] [place]: St: ADM FAX: Emery Sheehan Jr [phone] ---- Name: TEVIN NYE [facility] : 1950 Age/S: 72/M [address] [place] [address] Unit #: [id number] Loc: [address] [address] Phys: Emery Sheehan Jr, MD Acct: [id number] Dis Date: Status: ADM IN PHONE #: [phone] Exam Date: 03/05/2023 08 FAX #: [phone] Reason: ABD PAIN EXAMS: CPT CODE: [id number] XR ABDOMEN 1V (KUB) [id number] PROCEDURE INFORMATION: Exam: XR Abdomen Exam date [...] Beyer MD; Emery Sheehan Jr, MD Technologist: SHONNA Thakur) Trnlora Date/Time/By: 03/05/2023 (0851) : By: [email or web address] Orig Print D/T: S: 03/05/2023 (0848) PAGE 1 Signed Report- XR CHEST 1 [id number] 00:00:00 [facility] VIDAL BATCHELORName: TEVIN NYE : 1950 Sex: M FAX: Luci Wang [phone] [place]: St: [facility] FAX: Evon Garcia [facility] [phone] - Name: TIGRE NYE [place] : 1950 Age/S: 72/M [address] [place] [address] Unit #: [id number] Loc: G.[address] [place] [address] Phys: Evon Andrew Physic Acct: [id number] Dis Date: Status: ADM IN PHONE #: [phone] Exam Date: 03/05/2023 0501 FAX #: [phone] Reason: Cardiac Surgery Post Op EXAMS: CPT CODE: [id number] XR CHEST 1 V 43830 PROCEDURE INFORMATION: Exam: XR Chest Exam date [...] Andrew Technologist: RT Lelia(R) Trnscrd Date/Time/By: 03/05/2023 (825) : By: [email or web address] Orig Print D/T: S: 03/05/2023 (3351) PAGE 1 Signed ReportPO ARTERIAL BLOOD [id number] 23:12:00 * Test Item Value Reference Range Interpretation Comme nts POC ARTERIAL BLOOD GAS PH (t est code = POCPHA) 7.328 7.35-7.45 L POC ARTERIAL BLOOD GAS PCO2 (test code = PHONJV7G) 53.9 mmHg 35.0-45 HH POC TCO2 ARTERIAL (test code = POCTCO2) 30.2 POC ARTERIAL BLOOD GAS PO2 ( test code = NMHQO7G) 72.6 mmHg 80-100.0 L POC HCO3 ARTERIAL (test code = GKCSHL3A) 28.5 MMOL/L 22.0-26.0 HH POC BASE EXCESS (test code = POCBEA) 2.4 MMOL/L -4.0-4.0 N POC O2 SATURATION (test code = POCO2S) 93.3 % 90-100 N ABG DELIVERY (test code = RACIEL) 4L HFNC ABG TEMPERATURE (test code = TEMPA) 97.7 F ABG SITE (test code = SITEA) Art Line [id number] 23:12:00* Test Item Value Reference Range Interpretation Comme nts SODIUM (test code = NA/ABG) 148 mmol/L 134-147 H [id number] 23:12:00* Test Item Value Reference Range Interpretation Comme nts POTASSIUM (test code = K/ABG) 3.9 mmol/L 3.4-5.0 N [id number] 23:12:00* Test Item Value Reference Range Interpretation Comme nts CHLORIDE (test code = CL/ABG) 108 mmol/L 100-108 N CREATININE [id number] 23:12:00* Test Item Value Reference Range Interpretation Comme nts CREATININE ABG (test code = CREAABG) 1.6 mg/dL 0.8-1.3 H HEMOGLOBIN [id number] 23:12:00* Test Item Value Reference Range Interpretation Comme nts HEMOGLOBIN ABG (test code = HGB/ABG) 7.4 G/DL 12.5-16.9 L [id number] 23:12:00* Test Item Value Reference Range Interpretation Comme nts HEMATOCRIT (test code = HCT/ABG) 22 % 37.5-50.7 L POC LACTIC [id number] 23:12:00* Test Item Value Reference Range Interpretation Comme nts POC LACTIC ACID (test code = POCLAC) 4.3 mmol/l 0.9-1.7 HH POC [id number] 23:12:00* Test Item Value Reference Range Interpretation Comme nts POC GLUCOSE (test code = POCGLU) 178 MG/DL 70-110 H CBC W/AUTO [id number] 22:39:00* Test Item Value Reference Range Interpretation [...] (test c ode = MDIFF) NO PLT [id number] 22:39:00* Test Item Value Reference Range Interpretation Comme nts PLATELET ESTIMATE (test code = PLTEST) 140-175 THOUSAND ADEQUATE PLATELET MORPHOLOGY (test code = PLTMORPH) NORMAL BASIC METABOLIC [id number] 22:10:00* Test Item Value Reference Range Interpretation [...] CA) 7.6 mg/dL 8.0-10.5 L HEPATIC FUNCTION [id number] 22:10:00* Test Item Value Reference Range Interpretation [...] cod e = BILIND) 0.30 MG/DL CALCIUM [id number] 22:10:00* Test Item Value Reference Range Interpretation Comme nts CALCIUM IONIZED (test code = BIBIANA) 0.95 MMOL/L 1.09-1.30 L LACTIC [id number] 22:03:00* Test Item Value Reference Range Interpretation Comme nts LACTIC ACID (test code = LACT) 8.6 mmol/L 0.4-1.9 HH Critical result called to RAJ FordLAB.JN1 at 220103/04/23Nurse read back result and tech confirmed it's correct? Y POC ARTERIAL BLOOD [id number] 21:10:00* Test Item Value Reference Range Interpretation Comme nts POC ARTERIAL BLOOD GAS PH (t est code = POCPHA) 7.337 7.35-7.45 L POC ARTERIAL BLOOD GAS PCO2 (test code = ALWBSH8T) 49.8 mmHg 35.0-45 H POC TCO2 ARTERIAL (test code = POCTCO2) 28.7 POC ARTERIAL BLOOD GAS PO2 ( test code = BHYGB0E) 80.9 mmHg 80-100.0 N POC HCO3 ARTERIAL (test code = XVUCRT3E) 27.1 MMOL/L 22.0-26.0 H POC BASE EXCESS (test code = POCBEA) 1.0 MMOL/L -4.0-4.0 N POC O2 SATURATION (test code = POCO2S) 95.7 % 90-100 N FIO2 (test code = FIO2A) 40 % PaO2/FiO2 (test code = HIM7TZH7) 202.25 mm/Hg ABG DELIVERY (test code = RACIEL) Adult Vent ABG VENT MODE (test code = MODEA) SPONT ABG PEEP (test code = PEEPA) 5 cmH2O ABG PRESSURE SUPPORT (test c ode = PSABG) 20 cmH2O ABG TEMPERATURE (test code = TEMPA) 96.1 F ABG SITE (test code = SITEA) Art Line BASIC METABOLIC [id number] 21:10:00* Test Item Value Reference Range Interpretation [...] = POCGLU) 214 MG/DL 70-110 H HEMOGLOBIN [id number] 21:10:00* Test Item Value Reference Range Interpretation Comme nts HEMOGLOBIN ABG (test code = HGB/ABG) 7.9 G/DL 12.5-16.9 L [id number] 21:10:00* Test Item Value Reference Range Interpretation Comme nts HEMATOCRIT (test code = HCT/ABG) 23 % 37.5-50.7 L POC LACTIC [id number] 21:10:00* Test Item Value Reference Range Interpretation Comme nts POC LACTIC ACID (test code = POCLAC) 6.5 mmol/l 0.9-1.7 HH POC ARTERIAL BLOOD [id number] 20:29:00* Test Item Value Reference Range Interpretation Comme nts POC ARTERIAL BLOOD GAS PH (t est code = POCPHA) 7.342 7.35-7.45 L POC ARTERIAL BLOOD GAS PCO2 (test code = DTNROQ8C) 50.2 mmHg 35.0-45 HH POC TCO2 ARTERIAL (test code = POCTCO2) 28.7 POC ARTERIAL BLOOD GAS PO2 ( test code = ZIRPA7W) 382.6 mmHg 80-100.0 HH POC HCO3 ARTERIAL (test code = MSCCRZ2S) 27.2 MMOL/L 22.0-26.0 H POC BASE EXCESS (test code = POCBEA) 1.5 MMOL/L -4.0-4.0 N POC O2 SATURATION (test code = POCO2S) 99.9 % 90-100 N FIO2 (test code = FIO2A) 100 % PaO2/FiO2 (test code = BEK7DHS1) 382.60 mm/Hg ABG VENT MODE (test code = MODEA) AC ABG SITE (test code = SITEA) Art Line BASIC METABOLIC [id number] 20:29:00* Test Item Value Reference Range Interpretation [...] = POCGLU) 219 MG/DL 70-110 H HEMOGLOBIN [id number] 20:29:00* Test Item Value Reference Range Interpretation Comme nts HEMOGLOBIN ABG (test code = HGB/ABG) 7.7 G/DL 12.5-16.9 L [id number] 20:29:00* Test Item Value Reference Range Interpretation Comme nts HEMATOCRIT (test code = HCT/ABG) 23 % 37.5-50.7 L POC LACTIC [id number] 20:29:00* Test Item Value Reference Range Interpretation Comme nts POC LACTIC ACID (test code = POCLAC) 5.0 mmol/l 0.9-1.7 HH POC ARTERIAL BLOOD [id number] 19:38:00* Test Item Value Reference Range Interpretation Comme nts POC ARTERIAL BLOOD GAS PH (t est code = POCPHA) 7.204 7.35-7.45 LL POC ARTERIAL BLOOD GAS PCO2 (test code = ZABVWN5D) 50.2 mmHg 35.0-45 HH POC TCO2 ARTERIAL (test code = POCTCO2) 21.3 POC ARTERIAL BLOOD GAS PO2 ( test code = ZNJZJ3B) 125.4 mmHg 80-100.0 H POC HCO3 ARTERIAL (test code = WMZRMM7R) 19.8 MMOL/L 22.0-26.0 L POC BASE EXCESS (test code = POCBEA) -8.2 MMOL/L -4.0-4.0 L POC O2 SATURATION (test code = POCO2S) 97.9 % 90-100 N FIO2 (test code = FIO2A) 40 % PaO2/FiO2 (test code = UNR4EGZ1) 313.50 mm/Hg ABG DELIVERY (test code = RACIEL) Adult Vent ABG VENT RESP RATE (test cod e = RRA) 18 /MIN ABG TIDAL VOLUME (test code = TVA) 480 ml ABG PEEP (test code = PEEPA) 5 cmH2O ABG SITE (test code = SITEA) Art Line BASIC METABOLIC [id number] 19:38:00* Test Item Value Reference Range Interpretation [...] = POCGLU) 223 MG/DL 70-110 H HEMOGLOBIN [id number] 19:38:00* Test Item Value Reference Range Interpretation Comme nts HEMOGLOBIN ABG (test code = HGB/ABG) 7.8 G/DL 12.5-16.9 L [id number] 19:38:00* Test Item Value Reference Range Interpretation Comme nts HEMATOCRIT (test code = HCT/ABG) 23 % 37.5-50.7 L POC LACTIC [id number] 19:38:00* Test Item Value Reference Range Interpretation Comme nts POC LACTIC ACID (test code = POCLAC) 3.9 mmol/l 0.9-1.7 H BASIC METABOLIC [id number] 18:27:00* Test Item Value Reference Range Interpretation [...] mg/dL 8.0-10.5 N COMMENTS: On arrivalComment: On [id number] 18:27:00* Test Item Value Reference Range Interpretation Comme nts MAGNESIUM (test code = MAG) 2.98 mg/dL 1.80-2.40 H COMMENTS: On arrivalComment: On arrivalPROTHROMBIN [id number] 18:19:00* Test Item Value Reference Range Interpretation [...] prevent recurrent infarct). COMMENTS: On arrivalTHROMBOPLASTIN TIME [id number] 18:19:00* Test Item Value Reference Range Interpretation Comme nts THROMBOPLASTIN TIME PARTIAL (test code = PTT) 30.8 Seconds 25.0-39.5 Therapeutic Rang e: 50.4 - 88.3 Seconds Effective 12/22/2018 COMMENTS: On arrivalCBC W/AUTO [id number] 18:18:00* Test Item Value Reference Range Interpretation [...] c ode = MDIFF) NO COMMENTS: [facility] [id number] 18:02:00* Test Item Value Reference Range Interpretation Comme nts POC ARTERIAL BLOOD GAS PH (t est code = POCPHA) 7.280 7.35-7.45 LL POC ARTERIAL BLOOD GAS PCO2 (test code = OOYANV6C) 43.0 mmHg 35.0-45 N POC TCO2 ARTERIAL (test code = POCTCO2) 21.5 POC ARTERIAL BLOOD GAS PO2 ( test code = YXRFY1K) 175.5 mmHg 80-100.0 H POC HCO3 ARTERIAL (test code = JIXXBE2Q) 20.2 MMOL/L 22.0-26.0 L POC BASE EXCESS (test code = POCBEA) -6.5 MMOL/L -4.0-4.0 L POC O2 SATURATION (test code = POCO2S) 99.4 % 90-100 N FIO2 (test code = FIO2A) 50 % PaO2/FiO2 (test code = WYJ6JPF2) 351.00 mm/Hg ABG DELIVERY (test code = RACIEL) Adult Vent ABG VENT MODE (test code = MODEA) AC ABG VENT RESP RATE (test cod e = RRA) 18 /MIN ABG TIDAL VOLUME (test code = TVA) 480 ml ABG PEEP (test code = PEEPA) 5 cmH2O ABG SITE (test code = SITEA) Art Line SHAYLA'S TEST (test code = ALLENS) N/A BASIC METABOLIC [id number] 18:02:00* Test Item Value Reference Range Interpretation [...] = POCGLU) 230 MG/DL 70-110 H HEMOGLOBIN [id number] 18:02:00* Test Item Value Reference Range Interpretation Comme nts HEMOGLOBIN ABG (test code = HGB/ABG) 6.9 G/DL 12.5-16.9 L [id number] 18:02:00* Test Item Value Reference Range Interpretation Comme nts HEMATOCRIT (test code = HCT/ABG) 20 % 37.5-50.7 L POC ARTERIAL BLOOD [id number] 17:38:00* Test Item Value Reference Range Interpretation Comme nts POC ARTERIAL BLOOD GAS PH (t est code = POCPHA) 7.323 7.35-7.45 L POC ARTERIAL BLOOD GAS PCO2 (test code = ZBGTDE6E) 41.3 mmHg 35.0-45 N POC TCO2 ARTERIAL (test code = POCTCO2) 22.7 POC ARTERIAL BLOOD GAS PO2 ( test code = JVVXA9Z) 402.1 mmHg 80-100.0 HH POC HCO3 ARTERIAL (test code = UTAVFK3X) 21.4 MMOL/L 22.0-26.0 L POC BASE EXCESS (test code = POCBEA) -4.4 MMOL/L -4.0-4.0 L POC O2 SATURATION (test code = POCO2S) 100.0 % 90-100 N BASIC METABOLIC [id number] 17:38:00* Test Item Value Reference Range Interpretation [...] = POCGLU) 196 MG/DL 70-110 H HEMOGLOBIN [id number] 17:38:00* Test Item Value Reference Range Interpretation Comme nts HEMOGLOBIN ABG (test code = HGB/ABG) 8.3 G/DL 12.5-16.9 L [id number] 17:38:00* Test Item Value Reference Range Interpretation Comme nts HEMATOCRIT (test code = HCT/ABG) 25 % 37.5-50.7 L POC LACTIC [id number] 17:38:00* Test Item Value Reference Range Interpretation Comme nts POC LACTIC ACID (test code = POCLAC) 3.2 mmol/l 0.9-1.7 H [id number]-[id number] 17:35:00* Test Item Value Reference Range Interpretation Comme nts ACT-ISTAT (test code = ACTI) 149 SEC 74-137 H Performed by cer tified operator prefinish at [facility] [place] [id number] 16:46:00* Test Item Value Reference Range Interpretation Comme [facility] ACT-ISTAT (test code = ACTI) 630 SEC 74-137 H Performed by cer tified operator prefinish at [facility] [place] POC ARTERIAL BLOOD [id number] 16:38:00* Test Item Value Reference Range Interpretation Comme nts POC ARTERIAL BLOOD GAS PH (t est code = POCPHA) 7.383 7.35-7.45 N POC ARTERIAL BLOOD GAS PCO2 (test code = VRDEKC9C) 39.4 mmHg 35.0-45 N POC TCO2 ARTERIAL (test code = POCTCO2) 24.7 POC ARTERIAL BLOOD GAS PO2 ( test code = SYTNQ0R) 405.8 mmHg 80-100.0 HH POC HCO3 ARTERIAL (test code = ECJRUC1D) 23.5 MMOL/L 22.0-26.0 N POC BASE EXCESS (test code = POCBEA) -1.5 MMOL/L -4.0-4.0 N POC O2 SATURATION (test code = POCO2S) 100.0 % 90-100 N BASIC METABOLIC [id number] 16:38:00* Test Item Value Reference Range Interpretation [...] = POCGLU) 232 MG/DL 70-110 H HEMOGLOBIN [id number] 16:38:00* Test Item Value Reference Range Interpretation Comme nts HEMOGLOBIN ABG (test code = HGB/ABG) 6.2 G/DL 12.5-16.9 L [id number] 16:38:00* Test Item Value Reference Range Interpretation Comme nts HEMATOCRIT (test code = HCT/ABG) 18 % 37.5-50.7 L POC LACTIC [id number] 16:38:00* Test Item Value Reference Range Interpretation Comme nts POC LACTIC ACID (test code = POCLAC) 2.0 mmol/l 0.9-1.7 H [id number] 16:29:00* Test Item Value Reference Range Interpretation Comme nts ACT-ISTAT (test code = ACTI) 756 SEC 74-137 H Performed by cer tified operator prefinish at [facility] [place] POC ARTERIAL BLOOD [id number] 16:13:00* Test Item Value Reference Range Interpretation Comme nts POC ARTERIAL BLOOD GAS PH (t est code = POCPHA) 7.382 7.35-7.45 N POC ARTERIAL BLOOD GAS PCO2 (test code = LWZFZC1E) 40.6 mmHg 35.0-45 N POC TCO2 ARTERIAL (test code = POCTCO2) 25.3 POC ARTERIAL BLOOD GAS PO2 ( test code = APAAI2X) 476.4 mmHg 80-100.0 HH POC HCO3 ARTERIAL (test code = GSATKV6L) 24.1 MMOL/L 22.0-26.0 N POC BASE EXCESS (test code = POCBEA) -0.9 MMOL/L -4.0-4.0 N POC O2 SATURATION (test code = POCO2S) 100.0 % 90-100 N BASIC METABOLIC [id number] 16:13:00* Test Item Value Reference Range Interpretation [...] = POCGLU) 245 MG/DL 70-110 H HEMOGLOBIN [id number] 16:13:00* Test Item Value Reference Range Interpretation Comme nts HEMOGLOBIN ABG (test code = HGB/ABG) 6.7 G/DL 12.5-16.9 L [id number] 16:13:00* Test Item Value Reference Range Interpretation Comme nts HEMATOCRIT (test code = HCT/ABG) 20 % 37.5-50.7 L POC LACTIC [id number] 16:13:00* Test Item Value Reference Range Interpretation Comme nts POC LACTIC ACID (test code = POCLAC) 1.7 mmol/l 0.9-1.7 N [id number] 15:57:00* Test Item Value Reference Range Interpretation Comme nts ACT-ISTAT (test code = ACTI) 967 SEC 74-137 H Performed by cer tified operator prefinish at [facility] [place] POC ARTERIAL BLOOD [id number] 15:39:00* Test Item Value Reference Range Interpretation Comme nts POC ARTERIAL BLOOD GAS PH (t est code = POCPHA) 7.367 7.35-7.45 N POC ARTERIAL BLOOD GAS PCO2 (test code = KLMYAZ3A) 43.1 mmHg 35.0-45 N POC TCO2 ARTERIAL (test code = POCTCO2) 26.1 POC ARTERIAL BLOOD GAS PO2 ( test code = WDRTO6N) 489.2 mmHg 80-100.0 HH POC HCO3 ARTERIAL (test code = PABEXN3W) 24.7 MMOL/L 22.0-26.0 N POC BASE EXCESS (test code = POCBEA) -0.6 MMOL/L -4.0-4.0 N POC O2 SATURATION (test code = POCO2S) 100.0 % 90-100 N BASIC METABOLIC [id number] 15:39:00* Test Item Value Reference Range Interpretation [...] = POCGLU) 241 MG/DL 70-110 H HEMOGLOBIN [id number] 15:39:00* Test Item Value Reference Range Interpretation Comme nts HEMOGLOBIN ABG (test code = HGB/ABG) 6.6 G/DL 12.5-16.9 L [id number] 15:39:00* Test Item Value Reference Range Interpretation Comme nts HEMATOCRIT (test code = HCT/ABG) 20 % 37.5-50.7 L POC LACTIC [id number] 15:39:00* Test Item Value Reference Range Interpretation Comme nts POC LACTIC ACID (test code = POCLAC) 0.6 mmol/l 0.9-1.7 L [id number] 15:19:00* Test Item Value Reference Range Interpretation Comme nts ACT-ISTAT (test code = ACTI) 834 SEC 74-137 H Performed by cer tified operator prefinish at [facility] [place] POC ARTERIAL BLOOD [id number] 15:08:00* Test Item Value Reference Range Interpretation Comme nts POC ARTERIAL BLOOD GAS PH (t est code = POCPHA) 7.221 7.35-7.45 LL POC ARTERIAL BLOOD GAS PCO2 (test code = IHRUTX2B) 56.0 mmHg 35.0-45 HH POC TCO2 ARTERIAL (test code = POCTCO2) 24.7 POC ARTERIAL BLOOD GAS PO2 ( test code = JJQST0N) 497.4 mmHg 80-100.0 HH POC HCO3 ARTERIAL (test code = ADFBGX7O) 23.0 MMOL/L 22.0-26.0 N POC BASE EXCESS (test code = POCBEA) -4.8 MMOL/L -4.0-4.0 L POC O2 SATURATION (test code = POCO2S) 100.0 % 90-100 N BASIC METABOLIC [id number] 15:08:00* Test Item Value Reference Range Interpretation [...] = POCGLU) 271 MG/DL 70-110 H HEMOGLOBIN [id number] 15:08:00* Test Item Value Reference Range Interpretation Comme nts HEMOGLOBIN ABG (test code = HGB/ABG) 8.8 G/DL 12.5-16.9 L [id number] 15:08:00* Test Item Value Reference Range Interpretation Comme nts HEMATOCRIT (test code = HCT/ABG) 26 % 37.5-50.7 L POC LACTIC [id number] 15:08:00* Test Item Value Reference Range Interpretation Comme nts POC LACTIC ACID (test code = POCLAC) < 0.3 mmol/l 0.9-1.7 L [id number] 12:33:00* Test Item Value Reference Range Interpretation Comme nts ACT-ISTAT (test code = ACTI) 179 SEC 74-137 H Performed by cer tified operator prefinish at [facility] [place] POC ARTERIAL BLOOD [id number] 12:31:00* Test Item Value Reference Range Interpretation Comme nts POC ARTERIAL BLOOD GAS PH (t est code = POCPHA) 7.390 7.35-7.45 N POC ARTERIAL BLOOD GAS PCO2 (test code = WZHXCM8V) 36.7 mmHg 35.0-45 N POC TCO2 ARTERIAL (test code = POCTCO2) 23.3 POC ARTERIAL BLOOD GAS PO2 ( test code = JKVIQ2X) 449.5 mmHg 80-100.0 HH POC HCO3 ARTERIAL (test code = ZBXAGZ4C) 22.2 MMOL/L 22.0-26.0 N POC BASE EXCESS (test code = POCBEA) -2.4 MMOL/L -4.0-4.0 N POC O2 SATURATION (test code = POCO2S) 100.0 % 90-100 N BASIC METABOLIC [id number] 12:31:00* Test Item Value Reference Range Interpretation [...] = POCGLU) 399 MG/DL 70-110 H HEMOGLOBIN [id number] 12:31:00* Test Item Value Reference Range Interpretation Comme nts HEMOGLOBIN ABG (test code = HGB/ABG) 9.8 G/DL 12.5-16.9 L [id number] 12:31:00* Test Item Value Reference Range Interpretation Comme nts HEMATOCRIT (test code = HCT/ABG) 29 % 37.5-50.7 L POC LACTIC [id number] 12:31:00* Test Item Value Reference Range Interpretation Comme nts POC LACTIC ACID (test code = POCLAC) 0.7 mmol/l 0.9-1.7 L TROP-I HIGH [id number] 08:10:00* Test Item Value Reference Range Interpretation [...] URL. These results were obtained using [employer] IM TnIHreagent. Results from different methodologies should not becompared to one another as quantitative results and URLs mayvary by method. COMPREHENSIVE METABOLIC [id number] 04:55:00* Test Item Value Reference Range Interpretation [...] code = ALKP) 45 IUnit/L 20-125 N [id number] 04:55:00* Test Item Value Reference Range Interpretation Comme nts MAGNESIUM (test code = MAG) 1.76 mg/dL 1.80-2.40 L UA RFLX MICR CULT IF [id number] 04:55:00* Test Item Value Reference Range Interpretation [...] PainSpecimen Description: CLEAN CATCHCOVID 19 Asymptomatic IH [id number] 04:07:00* Test Item Value Reference Range Interpretation [...] moderate, high or waivedcomplexity tests. THROMBOPLASTIN TIME [id number] 03:44:00* Test Item Value Reference Range Interpretation Comme nts THROMBOPLASTIN TIME PARTIAL (test code = PTT) 80.6 Seconds 25.0-39.5 H Therapeutic Rang e: 50.4 - 88.3 Seconds Effective 12/22/2018 COMMENTS: DRAW PTT 6 HOURS AFTER INITIATION OF HEPARINCBC W/AUTO [id number] 03:27:00* Test Item Value Reference Range Interpretation [...] Daily while on Heparin- CT HEAD/BRAIN W/O [id number] 00:00:00 [facility] 1950 Sex: M Name: TEVIN NYE [facility] V[facility] Pope : 1950 Age/S: 72 / M [address] [place] [address] Blvd Unit #: [id number] Loc: [place] [address] Phys: Noé Madrid MD Acct: [id number] Dis Date: Status: ADM IN PHONE #: [phone] Exam Date: 03/04/20231932 FAX #: [phone] Reason: MINIMAL NEURO ACTIVITY Report Has Been Amended EXAMS: CPT CODE: [id number] CT HEAD/BRAIN W/O CONT [id number] Addendum - 03/04/2023 SIGNED 03/04/2023 ADDENDUM: [id number] CT/CTHDBRWO Findings have been communicated by telephone [...] one of these dose optimization techniques: automated ex posure control; mA and/or kV adjustment per patient [...] nj- white junction is intact. There is uimr-gn-rdkqdqyk patchy low attenuation in the cerebral white matter, likely reflecting chronic small vessel ischemic disease. Small lacunar infarcts are present in the right caudate head and anterior limb left internal capsule. Thereare probably several old lacunar infarcts in the jose bilaterally. One on the left is small. PAGE 1Signed Report (CONTINUED) Name[facility] : 1950 Age/S: 72 / M [address] [place] [address] Blvd Unit #: [id number] Loc: [place] [address] Phys: Noé Madrid MD Acct: [id number] Dis Date: Status: ADM IN PHONE #: [phone] Exam Date: 03/04/20231932 FAX #: [phone] Reason: MINIMAL NEURO ACTIVITY Report Has Been Amended EXAMS: CPT CODE: [id number] CT HEAD/BRAINW/O CONT 01240 (Continued) Another on the right is large. [...] and chronic paranasal sinus disease. ASSESSMENT: ASPECTS ([place] Stroke Program Early CT Score) is 10. at 1940 Reported and signed by: Carisa Schuler M.D. CC: Noé Madrid MD; Luci Beyer MD Technologist:Nani Birmingham, RT(R)(CT) CTDI: DLP: Trnscb Date/Time: 03/04/2023 (1939) Jose Juan Carter Print D/T: S: 03/04/2023 (1939) PAGE 2 Signed Report- XR CHEST 1 [id number] 00:00:00 [facility] 1950 Sex: M FAX: Luci Wang [phone] [place]: St: ADM FAX: Evon Garcia [facility] [phone] -- Name: TEVIN NYE [facility] : 1950 Age/S: 72/M [address] [place] [address] Unit #: [id number] Loc: [address] [place] [address] Phys: Evon Andrew Physic Acct: [id number] Dis Date: Status: ADM IN PHONE #: [phone] Exam Date: 03/04/20231821 FAX #: [phone] Reason: Cardiac Surgery Post Op EXAMS: CPT CODE: [id number] XR CHEST 1 V 52134 PROCEDURE INFORMATION: Exam: XR Chest Exam date [...] PAGE 1 Signed Report- XR CHEST 1 [id number] 00:00:00 [facility] : 1950 Sex: M FAX: Luci Wang [phone] [place]: St: [facility] FAX: Emery Sheehan Jr [phone] ---- Name: TEVIN NYE [facility] : 1950 Age/S: 72/M [address] [place] [address] Blvd Unit #: [id number] Loc: [place] [address] Phys: Emery Sheehan Jr, MD Acct: [id number] Dis Date: Status: ADM IN PHONE #: [phone] Exam Date: 03/04/2023 0651 FAX #: [phone] Reason: DAILY IN CVICU EXAMS: CPT CODE: [id number] XR CHEST 1 V 41588 PROCEDURE INFORMATION: Exam: XR Chest Exam date [...] MD Technologist: RT Perla(R) Trnscrd Date/Time/By: 03/04/2023 (08) : By: [email or web address] Orig Print D/T: S: 03/04/2023 (07) PAGE 1 Signed Report- ENRRIQUE ESCALERA [id number] 00:00:00 [facility] : 1950 Sex: M Name: TEVIN NYE [facility] : 1950 Age/S: 72 / M [address] [place] [address] Blvd Unit #: [id number] Loc: [place] [address] Phys: Sharmila Alan Acct: [id number] Dis Date: Status: ADM IN PHONE #: [phone] Exam Date: 03/04/2023712 FAX #: [phone] Reason: Swelling, R/O DVT EXAMS: CPT CODE: [id number] DUP VEIN SCOTTY 24128 PROCEDURE INFORMATION: Exam: US Duplex Lower Extremity [...] CC: Sharmila Alan; Luci Beyer MD Technologist: Nancy Márquez RDMS(AB)(OB) Trnscb Date/Time: 03/04/2023 (803) [id number] Orig Print D/T: S: 03/04/2023 (804) Probe: PAGE 1 Signed Report- CT ANGIO [id number] 00:00[facility]00[facility] : 1950 Sex: M Name: TEVIN NYE [facility] [place] : 1950 Age/S: 72 / M [address] [place] [address] Bl Unit #: [id number] Loc: [place] [address] Phys: Sharmila Alan Acct: [id number] Dis Date: Status: ADM IN PHONE #: [phone] Exam Date: 03/03/2023 2342 FAX #: [phone] Reason: R/O PE EXAMS: CPT CODE: [id number] CT ANGIO CHEST 56244 PROCEDURE INFORMATION: Exam: CTA Chest With Contrast [...] x 0.8 cm nodular opacity within the rightlower lobe. This may represent neoplastic etiology or possible scarring. As per 2017 Fleischner criteria guidelines, in low and high risk patients, CT of the chest, PET/CT, or tissue sampling should be performed in 3 months. PAGE 1 Signed Report (CONTINUED) Name: TEVIN NYE [facility] [place] : 1950 Age/S: 72 / M [address] [place] [address] Unit #: [id number] Loc: [place] [address] Phys: Sharmila Baig Acct: [id number] Dis Date: Status: ADM IN PHONE #: [phone] Exam Date: 03/03/2023 2342 FAX #: [phone] Reason: R/O PE EXAMS: CPT CODE: [id number] CT ANGIO CHEST 03386 (Continued) at 0150 Reported and signed by: Clarissa Lea CC: Sharmila Alan; Luci Beyer MD Technologist:Barbra Emmanuel, RT(R) CTDI: DLP: Trnscb Date/Time: 03/04/2023 (0150) [email or web address] Orig Print D/T: S: 03/04/2023 (0150) PAGE 2 Signed Report- DUP VEIN [id number] 00:00:00 [facility] 1950 Sex: M Name: TEVIN NYE [facility] [place] : 1950 Age/S: 72 / M [address] [place] [address] Unit #: [id number] Loc: [place] [address] Phys: Luci Beyer MD Acct: [id number] Dis Date: Status:ADM IN PHONE #: [phone] Exam Date: 03/04/202320 FAX #: [phone] Reason: Cardiac SurgeryPre Op EXAMS: CPT CODE: [id number] DUP VEIN SCOTTY 84910 PROCEDURE INFORMATION: Exam: US Duplex Lower Extremity [...] Left superficial veins: Normal Doppler waveforms. Normal c ompressibility. Greater saphenous vein is patent. Left great saphenous vein- upper thigh: 2.5 mm Left great saphenous vein-mid [...] Arcelia Dawn RDMS(AB)(OB) Trnscb Date/Time: 03/04/2023 (205) [id number] Orig Print D/T: S: 03/04/2023 (205) Probe: PAGE 1 Signed Report- DUP EXTRACRANIAL [id number] 00:00:00 [facility] : 1950 Sex: M Name: TEVIN NYE [facility] : 1950 Age/S: 72 / M [address] [place] [address] Unit #: [id number] Loc: [place] [address] Phys: Luci Beyer MD Acct: [id number] Dis Date: Status: ADM IN PHONE #: [phone] Exam Date: 03/03/2023 002 FAX #: [phone] Reason: Cardiac Surgery Pre Op EXAMS: CPT CODE: [id number] DUP EXTRACRANIAL SCOTTY 32897 PROCEDURE INFORMATION: Exam: US Duplex Bilateral Extracranial [...] stenosis. Waveforms are normal. Right ICA/CCA ratio: Withinnormal limits. 1.1 Right external carotid artery: No [...] PAGE1 Signed Report (CONTINUED) Name: TEVIN NYE [facility] [place] : 1950 Age/S: 72 / M [address] [place] [address] Unit #: [id number] Loc: [place] [address] Phys: Luci Beyer MD Acct: [id number] Dis Date: Status: ADM IN PHONE #: [phone] Exam Date: 03/03/202320 FAX #: [phone] Reason: Cardiac Surgery Pre Op EXAMS: CPT CODE: [id number] DUP EXTRACRANIAL SCOTTY 09786 (Continued) at 021 Reported and signed by: Alvino Roman M.D. CC: Luci Beyer MD Technologist: Arcelia Dawn RDMS(AB)(OB) Trnscb Date/Time: 03/04/2023 (216) [email or web address] Orig Print D/T: S: 03/04/2023 (217) Probe: PAGE 2 Signed ReportB-TYPE NATRIURETIC [id number] 22:13:00 * Test Item Value Reference Range Interpretation Comme nts B-TYPE NATRIURETIC PEPTIDE ( test code = BNP) 802.0 PG/ML 0-100 H HGBA1C%2023-03-03 21:50:00* Test Item Value Reference Range Interpretation Comme nts HGBA1C% (test code = HGBA1C%) 7.1 %A1C 4.8-6.0 H COMPREHENSIVE METABOLIC [id number] 21:43:00* Test Item Value Reference Range Interpretation [...] = LDL) 53.0 mg/dL 0-100 N <100 JNKCFNG26 0-129 NEAR OPTIMAL/ABOVE [id number] WGZMHQIGGR242-038 HIGH>US=434 VERY HIGH*Guidelines provided by the National Cholesterol EducationProgram Adult Treatment Panel III PROTHROMBIN [id number] 21:40:00* Test Item Value Reference Range Interpretation [...] ALREADY DONE WITHIN LAST 24 HOURSCBC W/AUTO [id number] 21:29:00* Test Item Value Reference Range Interpretation [...] DONE WITHIN LAST 24 HOURSXR CHEST 1 [id number] 13:08:01EXAM: XR CHEST 1 VW HISTORY: ct [...] slightlyelevated. Subcutaneous emphysema is diminishing on the right.[facility] Antonio[facility]OW[facility] GLU[facility] (AUTOMATED)2020-02-17 12:41:00* Test Item Value Reference Range Interpretation Comme [facility] POCT GLU (test code = 5782507491) 117 mg/dL 70-110 H Lab Interpretation (test cod e = 73593-7) Abnormal [facility] AntonioBAC METABOLIC PANEL (NA, K, CL, CO2, GLUCOSE, BUN, CREATININE, CA)2020-02-17 09:49:00* Test Item Value Reference Range Interpretation Comme nts NA (test code = 0370630559) 138 mmol/L 135-145 K (test code = 5489769751) 4.9 mmol/L 3.5-5 CL (test code = 6678959813) 106 mmol/L 98-108 CO2 TOTAL (test code = 9278655632) 27 mmol/L 23-31 AGAP (test code = 3789937691) 2-16 BUN (test code = 9257579605) 38 mg/dL 7-23 H GLUCOSE (test code = 7924981280) 203 mg/dL 70-110 H CREATININE (test code = 0863637187) 1.44 mg/dL 0.6-1.25 H CALCIUM (test code = 7448345446) 8.7 mg/dL 8.6-10.6 eGFR Calculation (Non-) (test code = 6289228814) mL/min/1.73m2 eGFR Calculation () (test code = 5680795650) mL/min/1.73m2 LOREN (test code = LOREN) Association [...] imaging tests). Lab Interpretation (test code = 79678-3) Abnormal [facility] WITH [id number] 09:27:00* Test Item Value Reference Range Interpretation Comme nts WBC (test code = 6690-2) See_Comment [[employer]] The system which generated this result transmitted reference range: 4.20 - 10.70 10*3/?L. The reference range was not used to interpret this result as normal/abnormal. RBC (test code = 789-8) See_Comment L [[employer]] The system which generated this result transmitted [...] 33.7 g/dL 31.2-35 RDW-SD (test code = 33885-3) 46.7 fL 38.5-51.6 RDW-CV (test code = 788-0) 14.1 % 12.1-15.4 PLT (test code = 777-3) See_Comment [Automated messa ge] The system which generated this result transmitted reference range: 150 - 328 10*3/?L. The reference range was not used to interpret this result as normal/abnormal. MPV (test code = 44109-0) 10.3 fL 9.8-13 NRBC/100 WBC (test code = 5188753103) See_Comment [Automated me ssage] The system which generated this result transmitted reference range: 0.0 - 10.0 /100 WBCs. The reference range was not used to interpret this result as normal/abnormal. NRBC x10^3 (test code = 0843046887) <0.01 See_Comment [Automated messa ge] The system which generated this result transmitted reference range: 10*3/?L. The reference range was not used to interpret this result as normal/abnormal. GRAN MAT (NEUT) % (test code = 770-8) 79.4 % IMM GRAN % (test code = 9906267541) 0.20 % LYMPH % (test code = 736-9) 11.2 % MONO % (test code = 5905-5) 6.7 % EOS % (test code = 713-8) 1.9 % BASO % (test code = 706-2) 0.6 % GRAN MAT x10^3(ANC) (test code = 4874392511) 4.24 10*3/uL 1.99-6.95 IMM GRAN x10^3 (test code = 2246237068) <0.03 0-0.06 LYMPH x10^3 (test code = 731-0) 0.60 10*3/uL 1.09-3.23 L MONO x10^3 (test code = 742-7) 0.36 10*3/uL 0.36-1.02 EOS x10^3 (test code = 711-2) 0.10 10*3/uL 0.06-0.53 BASO x10^3 (test code = 704-7) 0.03 10*3/uL 0.01-0.09 Lab Interpretation (test code = 46253-4) Abnormal [facility] GLUCOSE (AUTOMATED)2020-02-17 09:04:00* Test Item Value Reference Range Interpretation Comme nts POCT GLU (test code = 9855782211) 210 mg/dL 70-110 H Lab Interpretation (test cod e = 95959-7) Abnormal [facility] GLUCOSE (AUTOMATED)2020-02-17 05:34:00* Test Item Value Reference Range Interpretation Comme nts POCT GLU (test code = 2445718657) 251 mg/dL 70-110 H Lab Interpretation (test cod e = 37703-3) Abnormal [facility] GLUCOSE (AUTOMATED)2020-02-17 01:56:00* Test Item Value Reference Range Interpretation Comme nts POCT GLU (test code = 6987916557) 190 mg/dL 70-110 H Lab Interpretation (test cod e = 45346-4) Abnormal [facility] GLUCOSE (AUTOMATED)2020-02-17 01:06:00* Test Item Value Reference Range Interpretation Comme nts POCT GLU (test code = 2132383867) 224 mg/dL 70-110 H Lab Interpretation (test cod e = 24639-5) Abnormal [facility] AntonioGLYCOSYLATED HEMOGLOBIN (A1C)2020-02-17 00:01:00* Test Item Value Reference Range Interpretation Comme nts HGB A1C (test code = 4548-4) 6.8 % 4-6 H Lab Interpretation (test cod e = 56681-0) Abnormal [facility] GLUCOSE (AUTOMATED)2020-02-16 21:07:00* Test Item Value Reference Range Interpretation Comme nts POCT GLU (test code = 5649268069) 303 mg/dL 70-110 H Lab Interpretation (test cod e = 73188-7) Abnormal [facility] GLUCOSE (AUTOMATED)2020-02-16 16:42:00* Test Item Value Reference Range Interpretation Comme nts POCT GLU (test code = 6035167682) 282 mg/dL 70-110 H Lab Interpretation (test cod e = 74136-6) Abnormal [facility] AntonioXR CHEST 1 [id number] 13:17:11EXAM: XR CHEST 1 VW HISTORY: ptx [...] certainly due to pectoral muscles. Subcutaneous emphysema persists.[facility] AntonioHEBERTJ LUIS [id number] 13:04:00* Test Item Value Reference Range Interpretation Comme nts TROPONIN I (test code = 7236948002) 0.003 ng/mL See_Comment [Automated message] The system [...] biotin. ? Lab Interpretation (test code = 68081-3) Normal [facility] AntonioBASI METABOLIC PANEL (NA, K, CL, CO2, GLUCOSE, BUN, CREATININE, CA)2020-02-16 11:11:00* Test Item Value Reference Range Interpretation Comme nts NA (test code = 0483737852) 135 mmol/L 135-145 K (test code = 8421514896) 4.4 mmol/L 3.5-5 CL (test code = 4702968726) 105 mmol/L 98-108 CO2 TOTAL (test code = 8657493110) 24 mmol/L 23-31 AGAP (test code = 4709359200) 2-16 BUN (test code = 4169597862) 58 mg/dL 7-23 H GLUCOSE (test code = 4467699721) 226 mg/dL 70-110 H CREATININE (test code = 5012324468) 1.96 mg/dL 0.6-1.25 H CALCIUM (test code = 8518449315) 8.2 mg/dL 8.6-10.6 L eGFR Calculation (Non-) (test code = 0418793199) mL/min/1.73m2 eGFR Calculation () (test code = 6711766402) mL/min/1.73m2 LOREN (test code = LOREN) Association [...] imaging tests). Lab Interpretation (test code = 38691-5) Abnormal [facility] WITH [id number] 10:36:00* Test Item Value Reference Range Interpretation [...] 33.9 g/dL 31.2-35 RDW-SD (test code = 71056-9) 45.3 fL 38.5-51.6 RDW-CV (test code = 788-0) 13.8 % 12.1-15.4 PLT (test code = 777-3) See_Comment L [Automated messa ge] The system which generated this result transmitted reference range: 150 - 328 10*3/?L. The reference range was not used to interpret this result as normal/abnormal. MPV (test code = 58429-5) 10.1 fL 9.8-13 NRBC/100 WBC (test code = 9622920344) See_Comment [[employer] ssage] The system which generated this result transmitted reference range: 0.0 - 10.0 /100 WBCs. The reference range was not used to interpret this result as normal/abnormal. NRBC x10^3 (test code = 4359461646) <0.01 See_Comment [Automated messa ge] The system which generated this result transmitted reference range: 10*3/?L. The reference range was not used to interpret this result as normal/abnormal. GRAN MAT (NEUT) % (test code = 770-8) 70.2 % IMM GRAN % (test code = 3304274306) 0.50 % LYMPH % (test code = 736-9) 15.7 % MONO % (test code = 5905-5) 8.3 % EOS % (test code = 713-8) 4.8 % BASO % (test code = 706-2) 0.5 % GRAN MAT x10^3(ANC) (test code = 7143859030) 2.95 10*3/uL 1.99-6.95 IMM GRAN x10^3 (test code = 9218296291) <0.03 0-0.06 LYMPH x10^3 (test code = 731-0) 0.66 10*3/uL 1.09-3.23 L MONO x10^3 (test code = 742-7) 0.35 10*3/uL 0.36-1.02 L EOS x10^3 (test code = 711-2) 0.20 10*3/uL 0.06-0.53 BASO x10^3 (test code = 704-7) <0.03 0.01-0.09 Lab Interpretation (test code = 01069-4) Abnormal [facility] GLUCOSE (AUTOMATED)2020-02-16 05:14:00* Test Item Value Reference Range Interpretation Comme nts POCT GLU (test code = 5161458503) 272 mg/dL 70-110 H Notified Provide r Lab Interpretation (test code = 75280-5) Abnormal [facility] GLUCOSE (AUTOMATED)2020-02-16 02:08:00* Test Item Value Reference Range Interpretation Comme nts POCT GLU (test code = 8704318603) 302 mg/dL 70-110 H Lab Interpretation (test cod e = 91708-9) Abnormal [facility] GLUCOSE (AUTOMATED)2020-02-15 22:46:00* Test Item Value Reference Range Interpretation Comme nts POCT GLU (test code = 2998899625) 270 mg/dL 70-110 H Lab Interpretation (test cod e = 82206-6) [facility] [id number] 15:11:50 Somewhat limited examination due to patient [...] cm in length (119 ml). No hydronephrosis. Mem[facility], Radiant Results Inft User - 02/15/2020 10:12 [...] this study and agree with the abovereport. [facility] AntonioPOCT GLUCOSE (AUTOMATED)2020-02-15 13:20:00* Test Item Value Reference Range Interpretation Comme nts POCT GLU (test code = 3721496708) 155 mg/dL 70-110 H Lab Interpretation (test cod e = 57914-5) Abnormal [facility] AntonioXR CHEST 1 [id number] 12:56:56EXAM: XR CHEST 1 VW HISTORY: MV COMPARISON: None. FINDINGS: The heart and great vessels are normal and the lungs remain clear exceptfor a streak of atelectasis in the right midlung laterally. Subcutaneousemphysema persists. ? [facility], Radiant Results Inft User - 02/15/2020 7:58 AM CDTEXAM: XR CHEST 1 VWHISTORY: MV COMPARISON: None.FINDINGS:The heart and great vessels are normal and the lungs remain clear exceptfor a streak of atelectasis in the right midlung laterally. Subcutaneousemphysema persists.[facility] METABOLIC PANEL (NA, K, CL, CO2, GLUCOSE, BUN, CREATININE, CA)2020-02-15 10:15:00* Test Item Value Reference Range Interpretation Comme nts NA (test code = 6468931433) 134 mmol/L 135-145 L K (test code = 9075648001) 4.6 mmol/L 3.5-5 CL (test code = 8047812675) 101 mmol/L 98-108 CO2 TOTAL (test code = 5987879411) 24 mmol/L 23-31 AGAP (test code = 1278796877) 2-16 BUN (test code = 8722534706) 76 mg/dL 7-23 H GLUCOSE (test code = 4502494449) 147 mg/dL 70-110 H CREATININE (test code = 2700952022) 3.26 mg/dL 0.6-1.25 H CALCIUM (test code = 8985258092) 8.1 mg/dL 8.6-10.6 L eGFR Calculation (Non-) (test code = 7711080880) mL/min/1.73m2 eGFR Calculation () (test code = 7486674537) mL/min/1.73m2 LOREN (test code = LOREN) Association [...] imaging tests). Lab Interpretation (test code = 22627-0) Abnormal [facility] WITH [id number] 09:36:00* Test Item Value Reference Range Interpretation Comme nts WBC (test code = 6690-2) See_Comment [[employer]] The system which generated this result transmitted reference range: 4.20 - 10.70 10*3/?L. The reference range was not used to interpret this result as normal/abnormal. RBC (test code = 789-8) See_Comment L [[employer]] The system which generated this result transmitted [...] 33.3 g/dL 31.2-35 RDW-SD (test code = 02492-0) 46.5 fL 38.5-51.6 RDW-CV (test code = 788-0) 14.0 % 12.1-15.4 PLT (test code = 777-3) See_Comment L [Automated messa ge] The system which generated this result transmitted reference range: 150 - 328 10*3/?L. The reference range was not used to interpret this result as normal/abnormal. MPV (test code = 18458-1) 10.9 fL 9.8-13 NRBC/100 WBC (test code = 9021193871) See_Comment [Automated me ssage] The system which generated this result transmitted reference range: 0.0 - 10.0 /100 WBCs. The reference range was not used to interpret this result as normal/abnormal. NRBC x10^3 (test code = 6331625293) <0.01 See_Comment [Automated messa ge] The system which generated this result transmitted reference range: 10*3/?L. The reference range was not used to interpret this result as normal/abnormal. GRAN MAT (NEUT) % (test code = 770-8) 78.7 % IMM GRAN % (test code = 2086882459) 0.50 % LYMPH % (test code = 736-9) 9.3 % MONO % (test code = 5905-5) 8.2 % EOS % (test code = 713-8) 2.9 % BASO % (test code = 706-2) 0.4 % GRAN MAT x10^3(ANC) (test code = 8532140754) 4.32 10*3/uL 1.99-6.95 IMM GRAN x10^3 (test code = 6846179709) 0.03 10*3/uL 0-0.06 LYMPH x10^3 (test code = 731-0) 0.51 10*3/uL 1.09-3.23 L MONO x10^3 (test code = 742-7) 0.45 10*3/uL 0.36-1.02 EOS x10^3 (test code = 711-2) 0.16 10*3/uL 0.06-0.53 BASO x10^3 (test code = 704-7) <0.03 0.01-0.09 Lab Interpretation (test code = 30841-3) Abnormal [facility] [id number] 05:53:00* Test Item Value Reference Range Interpretation Comme nts T. VOL U (test code = 9130057123) 700 mL HR COLLECT (test code = 2212653983) Hours NA URINE (test code = 8768466391) 22 mmol/L NA U/24H (test code = 0574782772) See_Comment L [Automated messa ge] The system which generated this result transmitted reference range: 40 - 220 mmol/24 hrs. The reference range was not used to interpret this result as normal/abnormal. Lab Interpretation (test code = 20699-3) Abnormal [facility] GLU[facility] (AUTOMATED)2020-02-15 01:57:00* Test Item Value Reference Range Interpretation Comme nts POCT GLU (test code = 4996339787) 199 mg/dL 70-110 H Lab Interpretation (test cod e = 59529-8) Abnormal [facility] AntonioCHLORIDE, URINE [id number] 01:52:00* Test Item Value Reference Range Interpretation Comme nts CL URINE (test code = 7932012491) <15 30-260 L Lab Interpretation (test cod e = 24847-5) Abnormal [facility] AntonioPOTASSIUM, URINE [id number] 01:39:00* Test Item Value Reference Range Interpretation Comme nts K URINE (test code = 9662485782) 60.5 mmol/L [facility] AntonioURINALYSIS2020-06-09 01:10:00* Test Item Value Reference Range Interpretation Comme nts APPEARANCE (test code = 8929715466) Hazy Clear A COLOR (test code = 5837184481) Yellow Yellow PH (test code = 6679167073) 4.8-8.0 SP GRAVITY (test code = 9025859697) 1.003-1.030 GLU U QUAL (test code = 1812092791) Normal Normal BLOOD (test code = 7023252762) 2+ Negative A KETONES (test code = 3603335664) Negative Negative PROTEIN (test code = 2887-8) Negative Negative UROBILIN (test code = 5037092352) Normal Normal BILIRUBIN (test code = 7905555913) Negative Negative NITRITE (test code = 8482594765) Negative Negative LEUK RICHMOND (test code = 2114905017) Negative Negative RBC/HPF (test code = 6493546927) See_Comment H [Automated messa ge] The system which generated this result transmitted reference range: 0 - 3 HPF. The reference range was not used to interpret this result as normal/abnormal. WBC/HPF (test code = 7428600022) See_Comment [Automated messa ge] The system which generated this result transmitted reference range: 0 - 5 HPF. The reference range was not used to interpret this result as normal/abnormal. BACTERIA (test code = 2742478384) Negative Negative MUCOUS (test code = 3955290441) Slight Negative LPF A SQ EPITH (test code = 5944793143) <1 See_Comment [Automated messa ge] The system which generated this result transmitted reference range: <=2 HPF. The reference range was not used to interpret this result as normal/abnormal. Lab Interpretation (test code = 66706-1) Abnormal [facility] AntonioSODIUM, URINE [id number] 23:41:00* Test Item Value Reference Range Interpretation Comme nts NA URINE (test code = 4098723449) 20 mmol/L [facility] GLUCOSE (AUTOMATED)2020-02-14 23:12:00* Test Item Value Reference Range Interpretation Comme nts POCT GLU (test code = 1084348653) 115 mg/dL 70-110 H Lab Interpretation (test cod e = 78503-8) Abnormal [facility] GLUCOSE (AUTOMATED)2020-02-14 22:31:00* Test Item Value Reference Range Interpretation Comme nts POCT GLU (test code = 4439636480) 124 mg/dL 70-110 H Lab Interpretation (test cod e = 01695-8) Abnormal [facility] AntonioXR CHEST 1 [id number] 21:47:22 FINDINGS/IMPRESSION: Right-sided chest tube has been [...] chest tube removed COMPARISON: X-ray dated 02/14/2020 [facility], Radiant Results Inft User - 02/14/2020 [...] reviewed this study and agree with the abovereport.[facility] AntonioPOWV GLUCOSE (AUTOMATED)2020-02-14 13:14:00* Test Item Value Reference Range Interpretation Comme [facility] POCT GLU (test code = 5353601319) 136 mg/dL 70-110 H Lab Interpretation (test cod e = 04671-2) [facility] [id number] 13:02:33EXAM: XR CHEST 1 VW HISTORY: CT COMPARISON: None. FINDINGS: The chest tube draining the pleural space on the right has been slightlyretracted. The lungs are well expanded and clear except for the tiniestapical pneumothorax on the right. The left hemidiaphragm is slightlyelevated. The heart and great vessels are normal. Subcutaneous emphysemapersists on the right. ? [facility], Radiant Results Inft User- 02/14/2020 8:03 AM CDTEXAM: XR CHEST 1 VWHISTORY: CT COMPARISON: None.FINDINGS:The chest tube draining the pleural space on the right has been slightlyretracted. The lungs are well expanded and clear except for the tiniestapical pneumothorax on the right. The left hemidiaphragm is slightlyelevated. The heart and great vessels are normal. Subcutaneous emphysemapersists on the right.[facility] AntonioBASIC METABOLIC PANEL (NA, K, CL, CO2, GLUCOSE, BUN, CREATININE, CA)2020-02-14 09:35:00* Test Item Value Reference Range Interpretation Comme nts NA (test code = 0655962175) 134 mmol/L 135-145 L K (test code = 1170920062) 4.4 mmol/L 3.5-5 CL (test code = 3560095728) 102 mmol/L 98-108 CO2 TOTAL (test code = 0085463057) 25 mmol/L 23-31 AGAP (test code = 5741025093) 2-16 BUN (test code = 1482367356) 65 mg/dL 7-23 H GLUCOSE (test code = 8246519862) 136 mg/dL 70-110 H CREATININE (test code = 2146514474) 4.32 mg/dL 0.6-1.25 H CALCIUM (test code = 8875899651) 7.8 mg/dL 8.6-10.6 L eGFR Calculation (Non-) (test code = 3565408525) mL/min/1.73m2 eGFR Calculation () (test code = 5322624519) mL/min/1.73m2 LOREN (test code = LOREN) Association [...] imaging tests). Lab Interpretation (test code = 44862-5) Abnormal [facility] WITH [id number] 09:15:00* Test Item Value Reference Range Interpretation Comme nts WBC (test code = 6690-2) See_Comment [[employer]] The system which generated this result transmitted reference range: 4.20 - 10.70 10*3/?L. The reference range was not used to interpret this result as normal/abnormal. RBC (test code = 789-8) See_Comment L [[employer]] The system which generated this result [...] 33.2 g/dL 31.2-35 RDW-SD (test code = 97347-7) 47.9 fL 38.5-51.6 RDW-CV (test code = 788-0) 14.0 % 12.1-15.4 PLT (test code = 777-3) See_Comment L [Automated messa ge] The system which generated this result transmitted reference range: 150 - 328 10*3/?L. The reference range was not used to interpret this result as normal/abnormal. MPV (test code = 00801-4) 10.5 fL 9.8-13 NRBC/100 WBC (test code = 4744785848) See_Comment [[employer] ssage] The system which generated this result transmitted reference range: 0.0 - 10.0 /100 WBCs. The reference range was not used to interpret this result as normal/abnormal. NRBC x10^3 (test code = 1964332379) <0.01 See_Comment [Automated messa ge] The system which generated this result transmitted reference range: 10*3/?L. The reference range was not used to interpret this result as normal/abnormal. GRAN MAT (NEUT) % (test code = 770-8) 75.0 % IMM GRAN % (test code = 0475151792) 0.60 % LYMPH % (test code = 736-9) 13.3 % MONO % (test code = 5905-5) 7.7 % EOS % (test code = 713-8) 3.0 % BASO % (test code = 706-2) 0.4 % GRAN MAT x10^3(ANC) (test code = 5760974496) 4.02 10*3/uL 1.99-6.95 IMM GRAN x10^3 (test code = 1996617201) 0.03 10*3/uL 0-0.06 LYMPH x10^3 (test code = 731-0) 0.71 10*3/uL 1.09-3.23 L MONO x10^3 (test code = 742-7) 0.41 10*3/uL 0.36-1.02 EOS x10^3 (test code = 711-2) 0.16 10*3/uL 0.06-0.53 BASO x10^3 (test code = 704-7) <0.03 0.01-0.09 Lab Interpretation (test code = 66448-8) Abnormal [facility] AntonioCREST. JOHN'S HOSPITALINE, URINE [id number] 05:08:00* Test Item Value Reference Range Interpretation Comme nts CREAT U (test code = 3812509173) 226.2 mg/dL [facility] AntonioPOWV GLUCOSE (AUTOMATED)2020-02-14 01:54:00* Test Item Value Reference Range Interpretation Comme nts POCT GLU (test code = 7214271889) 173 mg/dL 70-110 H Lab Interpretation (test cod e = 44584-9) Abnormal [facility] METABOLIC PANEL (NA, K, CL, CO2, GLUCOSE, BUN, CREATININE, CA)2020-02-14 00:55:00* Test Item Value Reference Range Interpretation Comme nts NA (test code = 6355857904) 136 mmol/L 135-145 K (test code = 5723086712) 4.8 mmol/L 3.5-5 CL (test code = 0318028396) 101 mmol/L 98-108 CO2 TOTAL (test code = 3340027416) 26 mmol/L 23-31 AGAP (test code = 2238574065) 2-16 BUN (test code = 6287083236) 64 mg/dL 7-23 H GLUCOSE (test code = 3010073851) 171 mg/dL 70-110 H CREATININE (test code = 9567566578) 4.30 mg/dL 0.6-1.25 H CALCIUM (test code = 2098454697) 8.5 mg/dL 8.6-10.6 L eGFR Calculation (Non-) (test code = 1716528658) mL/min/1.73m2 eGFR Calculation () (test code = 1601278963) mL/min/1.73m2 LOREN (test code = LOREN) Association [...] imaging tests). Lab Interpretation (test code = 09884-9) Abnormal [facility] GLUCOSE (AUTOMATED)2020-02-13 22:34:00* Test Item Value Reference Range Interpretation Comme nts POCT GLU (test code = 6710315682) 170 mg/dL 70-110 H Lab Interpretation (test cod e = 33927-0) Abnormal [facility] AntonioXR CHEST 1 [id number] 21:02:13 FINDINGS/IMPRESSION: The right chest tube is [...] rib fx COMPARISON: Chest x-ray dated 02/12/2020. [facility], Radiant Results Inft User - 02/13/2020 [...] reviewed this study and agree with the abovereport.[facility] GLUCOSE (AUTOMATED) 2020-02-13 17:49:00* Test Item Value Reference Range Interpretation Comme nts POCT GLU (test code = 9311946099) 185 mg/dL 70-110 H Lab Interpretation (test cod e = 26432-2) Abnormal [facility] Antonio[facility] METABOLIC PANEL (NA, K, CL, CO2, GLUCOSE, BUN, CREATININE, CA)2020-02-13 16:05:00* Test Item Value Reference Range Interpretation Comme nts NA (test code = 7671404811) 136 mmol/L 135-145 K (test code = 2422403895) 4.7 mmol/L 3.5-5 CL (test code = 4210174413) 102 mmol/L 98-108 CO2 TOTAL (test code = 3544397647) 26 mmol/L 23-31 AGAP (test code = 4671265567) 2-16 BUN (test code = 0478894583) 54 mg/dL 7-23 H GLUCOSE (test code = 4712529929) 181 mg/dL 70-110 H CREATININE (test code = 5570318940) 4.11 mg/dL 0.6-1.25 H CALCIUM (test code = 0549752411) 8.5 mg/dL 8.6-10.6 L eGFR Calculation (Non-) (test code = 7682798031) mL/min/1.73m2 eGFR Calculation () (test code = 9879136930) mL/min/1.73m2 LOREN (test code = LOREN) Association [...] imaging tests). Lab Interpretation (test code = 80830-6) Abnormal [facility] WITH [id number] 16:01:00* Test Item Value Reference Range Interpretation [...] 33.5 g/dL 31.2-35 RDW-SD (test code = 94071-9) 48.3 fL 38.5-51.6 RDW-CV (test code = 788-0) 14.2 % 12.1-15.4 PLT (test code = 777-3) See_Comment [Automated [employer] Girl[employer] ge] The system which generated this result transmitted reference range: 150 - 328 10*3/?L. The reference range was not used to interpret this result as normal/abnormal. MPV (test code = 21269-4) 11.1 fL 9.8-13 NRBC/100 WBC (test code = 5276223228) See_Comment [Automated [employer] ssage] The system which generated this result transmitted reference range: 0.0 - 10.0 /100 WBCs. The reference range was not used to interpret this result as normal/abnormal. NRBC x10^3 (test code = 5871964086) <0.01 See_Comment [Automated messa ge] The system which generated this result transmitted reference range: 10*3/?L. The reference range was not used to interpret this result as normal/abnormal. GRAN MAT (NEUT) % (test code = 770-8) 78.8 % IMM GRAN % (test code = 2051913093) 0.40 % LYMPH % (test code = 736-9) 12.4 % MONO % (test code = 5905-5) 6.5 % EOS % (test code = 713-8) 1.4 % BASO % (test code = 706-2) 0.5 % GRAN MAT x10^3(ANC) (test code = 7691464184) 6.28 10*3/uL 1.99-6.95 IMM GRAN x10^3 (test code = 4659316566) 0.03 10*3/uL 0-0.06 LYMPH x10^3 (test code = 731-0) 0.99 10*3/uL 1.09-3.23 L MONO x10^3 (test code = 742-7) 0.52 10*3/uL 0.36-1.02 EOS x10^3 (test code = 711-2) 0.11 10*3/uL 0.06-0.53 BASO x10^3 (test code = 704-7) 0.04 10*3/uL 0.01-0.09 Lab Interpretation (test code = 97479-2) Abnormal [facility] GLUCOSE (AUTOMATED)2020-02-13 14:49:00* Test Item Value Reference Range Interpretation Comme nts POCT GLU (test code = 8608649440) 188 mg/dL 70-110 H Lab Interpretation (test cod e = 22870-9) Abnormal [facility] GLUCOSE (AUTOMATED)2020-02-13 02:44:00* Test Item Value Reference Range Interpretation Comme nts POCT GLU (test code = 4704709775) 160 mg/dL 70-110 H Lab Interpretation (test cod e = 07344-0) Abnormal [facility] GLUCOSE (AUTOMATED)2020-02-12 18:57:00* Test Item Value Reference Range Interpretation Comme nts POCT GLU (test code = 8030880609) 172 mg/dL 70-110 H Lab Interpretation (test cod e = 63490-1) [facility] CHEST 1 [id number] 17:57:29Unchanged right chest tube without residual pneumothorax [...] reviewed this study and agree with the abovereport.[facility] AntonioPOCT GLUCOSE (AUTOMATED)2020-02-12 13:36:00* Test Item Value Reference Range Interpretation Comme nts POCT GLU (test code = 3622917841) 232 mg/dL 70-110 H Lab Interpretation (test cod e = 43196-6) Abnormal [facility] Antonio[facility] METABOLIC PANEL (NA, K, CL, CO2, GLUCOSE, BUN, CREATININE, CA)2020-02-12 10:32:00* Test Item Value Reference Range Interpretation Comme nts NA (test code = 8690847263) 137 mmol/L 135-145 K (test code = 3060493262) 5.0 mmol/L 3.5-5 CL (test code = 3820020272) 104 mmol/L 98-108 CO2 TOTAL (test code = 2945043015) 25 mmol/L 23-31 AGAP (test code = 7964914765) 2-16 BUN (test code = 6096699589) 30 mg/dL 7-23 H GLUCOSE (test code = 2798652212) 178 mg/dL 70-110 H CREATININE (test code = 6080403258) 1.71 mg/dL 0.6-1.25 H CALCIUM (test code = 6190692007) 8.5 mg/dL 8.6-10.6 L eGFR Calculation (Non-) (test code = 4783951137) mL/min/1.73m2 eGFR Calculation () (test code = 8812076000) mL/min/1.73m2 LOREN (test code = LOREN) Association [...] imaging tests). Lab Interpretation (test code = 90228-1) Abnormal [facility] AntonioPHOSPHORUS2020-06-06 10:31:00* Test Item Value Reference Range Interpretation Comme nts PHOSPHORUS (test code = 4342436368) 5.4 mg/dL 2.5-5 H Lab Interpretation (test cod e = 20173-6) Abnormal [facility] AntonioCBC WITH [id number] 10:10:00* Test Item Value Reference Range Interpretation [...] 33.7 g/dL 31.2-35 RDW-SD (test code = 44628-5) 47.4 fL 38.5-51.6 RDW-CV (test code = 788-0) 14.3 % 12.1-15.4 PLT (test code = 777-3) See_Comment [Automated messa ge] The system which generated this result transmitted reference range: 150 - 328 10*3/?L. The reference range was not used to interpret this result as normal/abnormal. MPV (test code = 12456-6) 10.8 fL 9.8-13 NRBC/100 WBC (test code = 8755679637) See_Comment [Automated me ssage] The system which generated this result transmitted reference range: 0.0 - 10.0 /100 WBCs. The reference range was not used to interpret this result as normal/abnormal. NRBC x10^3 (test code = 5762312900) <0.01 See_Comment [Automated French Girlsa ge] The system which generated this result transmitted reference range: 10*3/?L. The reference range was not used to interpret this result as normal/abnormal. GRAN MAT (NEUT) % (test code = 770-8) 79.1 % IMM GRAN % (test code = 9248652981) 0.40 % LYMPH % (test code = 736-9) 9.6 % MONO % (test code = 5905-5) 9.5 % EOS % (test code = 713-8) 0.9 % BASO % (test code = 706-2) 0.5 % GRAN MAT x10^3(ANC) (test code = 5060339673) 6.24 10*3/uL 1.99-6.95 IMM GRAN x10^3 (test code = 6554673762) 0.03 10*3/uL 0-0.06 LYMPH x10^3 (test code = 731-0) 0.76 10*3/uL 1.09-3.23 L MONO x10^3 (test code = 742-7) 0.75 10*3/uL 0.36-1.02 EOS x10^3 (test code = 711-2) 0.07 10*3/uL 0.06-0.53 BASO x10^3 (test code = 704-7) 0.04 10*3/uL 0.01-0.09 Lab Interpretation (test code = 57662-9) Abnormal [facility] GLUCOSE (AUTOMATED)2020-02-12 03:58:00* Test Item Value Reference Range Interpretation Comme nts POCT GLU (test code = 8377119590) 165 mg/dL 70-110 H Lab Interpretation (test cod e = 89075-1) Abnormal [facility] GLUCOSE (AUTOMATED)2020-02-12 02:33:00* Test Item Value Reference Range Interpretation Comme nts POCT GLU (test code = 5165944620) 170 mg/dL 70-110 H Notified Provide r Lab Interpretation (test code = 13568-7) Abnormal [facility] 1 [id number] 01:02:10Interval advancement of right chest tube with [...] reviewed this study and agree with theabove report.[facility] AntonioCritical [id number] 21:34:22NeCheryl morales MD ? ? 02/11/2020 ?4:34 [...] studies and ordering and performing treatments and interventionsUnQuail Creek Surgical HospitalCOVID- 19 (ID NOW RAPID TESTING)2020-02-11 18:06:00* Test Item Value Reference Range Interpretation Comme nts SARS-CoV-2 Rapid ID NOW (test code = 07421-1) Not Detected Not Detected LOREN (test code = LOREN) ID NOW COVID-19 As say is an isothermal nucleic acid amplification test intended for the qualitative detection of nucleic acid from SARS-CoV-2 viral RNA in nasopharyngeal (CORPORATE SAFETY COORDINATOR) specimens. It is used under Emergency Use [...] clinically indicated. Lab Interpretation (test code = 36180-0) Normal [facility] AntonioCT TRAUMA THORACIC SPINE WO [id number] 18:01:27No acute intracranial abnormality. 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 Multilevel mild to moderate degenerative changes [...] made of developmental incomplete fusion of the I7rwgfclbgx arch.Multilevel mild to moderate degenerative changes are [...] treating team is aware of and treating thepneumothoraxUnQuail Creek Surgical HospitalCT TRAUMA LUMBAR SPINE WO [id number] 18:01:27No acute intracranial abnormality. No fracture or [...] hemorrhage or mass effect is present. The jn-whitematter differentiation is preserved. A small, remote lacunar [...] made of developmental incomplete fusion of the C7pmcuphvjk arch. Multilevel mild to moderate degenerative changes [...] made of developmental incomplete fusion of the S2vgawodsww arch.Multilevel mild to moderate degenerative changes are [...] treating team is aware of and treating thepneumothoraxChildren's Hospital of San AntonioCT TRAUMA HEAD WO CONTRAST 2020-02-11 18:01:27No acute [...] made of developmental incomplete fusion of the Q3rsvdeytky arch. Multilevel mild to moderate degenerative changes [...] made of developmental incomplete fusion of the N2pbdgnpdpk arch.Multilevel mild to moderate degenerative changes are [...] treating team is aware of and treating thepneumothoraxUnQuail Creek Surgical HospitalCT TRAUMA CERVICAL SPINE WO [id number] 18:01:27No acute intracranial abnormality. No fracture or [...] made of developmental incomplete fusion of the T5rozotymzo arch. Multilevel mild to moderate degenerative changes [...] made of developmental incomplete fusion of the E6yddvysvum arch.Multilevel mild to moderate degenerative changes are [...] treating team is aware of and treating thepneumothoraxUnQuail Creek Surgical HospitalCT TRAUMA THORAX W CONTRAST 2020-02-11 17:59:251. [...] Diffuse diverticulosis of the sigmoid and descending colonUnQuail Creek Surgical HospitalCT TRAUMA ABDOMEN PELVIS W [id number] 17:59:251. Large right pneumothorax2. Nondisplaced fractures involving [...] Diffuse diverticulosis of the sigmoid and descending colonUnQuail Creek Surgical HospitalXR CHEST 1 [id number] 17:45:46CHEST PORTABLE ONE VIEW HISTORY:Dyspnea, pneumothorax TECHNIQUE: [...] Hughes at 12:45 PM by phone on 02/11/2020UnQuail Creek Surgical HospitalTroponin [id number] 17:32:00* Test Item Value Reference Range Interpretation Comme nts TROPONIN I (test code = 1885862834) <0.012 See_Comment [Automated message] The system which [...] biotin. ? Lab Interpretation (test code = 19404-7) Normal [facility] (NA, K, CL, CO2, GLUCOSE, BUN, CREATININE, CA)2020-02-11 17:21:00* Test Item Value Reference Range Interpretation Comme nts NA (test code = 6624088525) 139 mmol/L 135-145 K (test code = 0390923975) 4.6 mmol/L 3.5-5 CL (test code = 8709982608) 107 mmol/L 98-108 CO2 TOTAL (test code = 7330269338) 27 mmol/L 23-31 AGAP (test code = 3827267289) 2-16 BUN (test code = 6120486215) 22 mg/dL 7-23 GLUCOSE (test code = 3057376024) 166 mg/dL 70-110 H CREATININE (test code = 3210196026) 1.12 mg/dL 0.6-1.25 CALCIUM (test code = 5727073555) 9.4 mg/dL 8.6-10.6 eGFR Calculation (Non-) (test code = 2900140798) mL/min/1.73m2 eGFR Calculation () (test code = 8567404803) mL/min/1.73m2 LOREN (test code = LOREN) Association [...] imaging tests). Lab Interpretation (test code = 55818-9) Abnormal [facility] AntonioHepatic Function Panel (ALB, T.PRO, BILI T, BU/BC, ALT, AST, ALK PHOS)2020-02-11 17:21:00* Test Item Value Reference Range Interpretation Comme nts TOTAL BILI (test code = 0377157078) 0.6 mg/dL 0.1-1.1 BILI UNCON (test code = 3899548847) 0.7 mg/dL 0.1-1.1 BILI CONJ (test code = 9259363323) 0.0 mg/dL 0-0.3 T PROTEIN (test code = 2287098901) 7.8 g/dL 6.3-8.2 ALBUMIN (test code = 1796175552) 4.4 g/dL 3.5-5 ALK PHOS (test code = 6905674945) 79 U/L 34-122 ALTv (test code = 1742-6) 43 U/L 5-50 AST(SGOT) (test code = 3484742271) 63 U/L 13-40 H Lab Interpretation (test cod e = 55179-2) Abnormal [facility] AntonioProthrombin Time (PT) / [id number] 17:21:00 * Test Item Value Reference Range Interpretation Comme [facility] PROTIME PATIENT (test code = 5964-2) See_Comment [Automated [employer] ge] The system which generated this result transmitted reference range: 12.0 - 14.7 Seconds. The reference range was not used to interpret this result as normal/abnormal. INR (test code = 6301-6) Normal INR <1.1; Warfarin Therapeutic range 2.0 to 3.0 or 2.5 to 3.5, depending upon the indications. Lab Interpretation (test code = 52504-3) Normal [facility] AntonioaPTT2020-06-05 17:20:00* Test Item Value Reference Range Interpretation Comme [facility] APTT Patient (test code = 3173-2) See_Comment [Automated message] The system which generated this result transmitted reference range: 23 - 38 Seconds. The reference range was not used to interpret this result as normal/abnormal. LOREN (test code = LOREN) The [facility] patient population mean normal value for aPTT is 30 seconds. Lab Interpretation (test code = 92616-2) Normal [facility] AntonioLipase Eshap6373-73-13 17:20:00* Test Item Value Reference Range Interpretation Comme [facility] LIPASE (test code = 6888048316) 118 U/L 0-220 Lab Interpretation (test cod e = 23286-4) Normal [facility] AntonioCBC WITH [id number] 17:07:00* Test Item Value Reference Range Interpretation Comme [facility] WBC (test code = 6690-2) See_Comment [Automated [employer] ge] The system which generated this result transmitted reference range: 4.20 - 10.70 10*3/?L. The reference range was not used to interpret this result as normal/abnormal. RBC (test code = 789-8) See_Comment [Automated [employer] Girl[employer] ge] The system which generated this result [...] 34.0 g/dL 31.2-35 RDW-SD (test code = 33830-1) 45.1 fL 38.5-51.6 RDW-CV (test code = 788-0) 13.7 % 12.1-15.4 PLT (test code = 777-3) See_Comment [Automated messa ge] The system which generated this result transmitted reference range: 150 - 328 10*3/?L. The reference range was not used to interpret this result as normal/abnormal. MPV (test code = 66103-7) 10.5 fL 9.8-13 NRBC/100 WBC (test code = 1110863100) See_Comment [Automated me ssage] The system which generated this result transmitted reference range: 0.0 - 10.0 /100 WBCs. The reference range was not used to interpret this result as normal/abnormal. NRBC x10^3 (test code = 1617010295) <0.01 See_Comment [Automated me ssage] The system which generated this result transmitted reference range: 10*3/?L. The reference range was not used to interpret this result as normal/abnormal. GRAN MAT (NEUT) % (test code = 770-8) 73.2 % IMM GRAN % (test code = 3682595322) 0.90 % LYMPH % (test code = 736-9) 16.8 % MONO % (test code = 5905-5) 6.3 % EOS % (test code = 713-8) 2.1 % BASO % (test code = 706-2) 0.7 % GRAN MAT x10^3(ANC) (test code = 5660443636) 5.14 10*3/uL 1.99-6.95 IMM GRAN x10^3 (test code = 5865880508) 0.06 10*3/uL 0-0.06 LYMPH x10^3 (test code = 731-0) 1.18 10*3/uL 1.09-3.23 MONO x10^3 (test code = 742-7) 0.44 10*3/uL 0.36-1.02 EOS x10^3 (test code = 711-2) 0.15 10*3/uL 0.06-0.53 BASO x10^3 (test code = 704-7) 0.05 10*3/uL 0.01-0.09 [facility] Notes Date/Time Note Provider Source 2023-04-23 15:18:00 [id number] [place] [address] PATIENT NAME: TEVIN NYE ADMIT DATE: 04/08/23 ACCOUNT NO: [id number] ROOM NO: G.[id number] AGE: 73 REPORT TYPE: 360 - QUERY RESPONSE DOCUMENT SEX: M ADMITTING PHYSICIAN:Elvie Gamboa MD ATTENDING PHYSICIAN:Rojelio Magaña MD Provider Query QUERY TEXT: Condition General 360MD Query related questions should be directed to: [facility] Coding Query Helpline Based on [...] AM at 1518 PATIENT NAME: TEVIN NYE [facility] 2023-04-19 21:44:00 [facility] ([facility] Hospitalist Discharge Summary REPORT#:[id number] REPORT STATUS: Signed DATE:04/19/23 TIME: 2143 PATIENT: TEVIN NYE UNIT #: [id number] ROOM/BED: [place] [address] : 51 AGE: 73 SEX: M ATTEND: [...] 8/9- hgb 7.3...bone marrow bx planned today? 04/17 [...] Musculoskeletal: normal inspection, painless range of motion Neuro/EXPENSE ANALYST: alert, oriented X 3, CNII-XII intact Skin: dry, intact Ulcer: Type/cause: scab left foot. Results Findings/Data: Laboratory Tests: 04/19 04/19 04/19 [facility] 0730 0330 Chemistry Sodium (134 - 147 [...] (Auto) (14.0 - 32.0 %) 12.6 L [place] % (Auto) (4.8 - 9.0 %) 10.7 H Eos % (Auto) (0.3 - 3.7 %) 2.5 Baso % (Auto) (0.0 - 2.0 %) 0.6 Neut # (Auto) (2.0 - 7.6 x10 3/uL) 2.38 Lymph # (Auto) (1.0 - 3.8 x10 3/uL) 0.41 L [place] # (Auto) (0.1 - 0.8 x10 3/uL) [...] Home/Self Care Additional Discharge Routines: PCP Follow-Up, Administration Manager Follow-Up Diet: Diabetic Activity: As Tolerated Follow-up [...] Discussion included: living will (yes), power of prosecuting attorney (yes), code status ( full code) Current Medications Current medication review: I attest that the foregoing medication list in the medical record is true, accurate, and complete to the best of my knowledge. at 2148 RPT #:[id number] [facility] 2023-04-19 16:59:00 [facility] Podiatry Progress Note REPORT#:[id number] REPORT STATUS: Signed DATE:04/19/23 TIME: 1658 PATIENT: TEVIN NYE UNIT #: [id number] ROOM/BED: 5517-1 : 51 AGE: 73 SEX: [...] Mean 76.8 04/19 937 Pulse 69 04/19 0937 O2 Flow Rate [...] (Auto) (14.0 - 32.0 %) 12.6 L [place] % (Auto) (4.8 - 9.0 %) 10.7 H Eos % (Auto) (0.3 - 3.7 %) 2.5 Baso % (Auto) (0.0 - 2.0 %) 0.6 Neut # (Auto) (2.0 - 7.6 x10 3/uL) 2.38 Lymph # (Auto) (1.0 - 3.8 x10 3/uL) 0.41 L [place] # (Auto) (0.1 - 0.8 x10 3/uL) [...] covering for Dr. Washington at 1700 RPT #:[id number] [facility] 2023-04-19 15:40:00 [facility] ([facility]) Pulmonology Progress Note REPORT#:[id number] REPORT STATUS: Signed DATE:04/19/23 TIME: 1540 PATIENT: TEVIN NYE UNIT #: [id number] ROOM/BED: [place] [address] : 51 AGE: 73 SEX: M ATTEND: [...] 15 04/19 0727 FiO2 28 04/18 194 PATIENT WEIGHT: Weight [...] all, no clubbing, no cyanosis, no edema Neuro/EXPENSE ANALYST: CNII-XII intact Skin: dry, intact Ulcer: Type/cause: [...] (Auto) (14.0 - 32.0 %) 12.6 L [place] % (Auto) (4.8 - 9.0 %) 10.7 H Eos % (Auto) (0.3 - 3.7 %) 2.5 Baso % (Auto) (0.0 - 2.0 %) 0.6 Neut # (Auto) (2.0 - 7.6 x10 3/uL) 2.38 Lymph # (Auto) (1.0 - 3.8 x10 3/uL) 0.41 L [place] # (Auto) (0.1 - 0.8 x10 3/uL) [...] pulmonary function test outpatient. Follows with the ID but looking for civilian offal worker due to issues with the [facility] [...] scan in 2-4 weeks at 1542 RPT #:[id number] END OF REPORT [facility] 2023-04-19 15:10:00 [facility] ([facility]) Avery/Oncology Progress Note REPORT#:[id number] REPORT STATUS: Signed DATE:04/19/23 TIME: 1510 PATIENT: TEVIN NYE UNIT #: [id number] ROOM/BED: [place] [address] : 51 AGE: 73 SEX: M ATTEND: [...] FiO2 28 04/18 1948 General appearance: alert, awake HEENT: atraumatic, normocephalic Neck: full range of motion, non-tender, supple/no meningismus, no JVD, no lymphadenopathy Cardiovascular: regular rate and rhythm Respiratory: clear to auscultation Abdomen: non-tender, normal bowel sounds, soft, no distention, no guarding, no mass/organomegaly, no rebound Extremities: moves all, normal capillary refill, no edema Musculoskeletal: full range of motion, normal inspection Neuro/EXPENSE ANALYST: alert, oriented X 3 Ulcer: Type/cause: scab [...] (Auto) (14.0 - 32.0 %) 12.6 L [place] % (Auto) (4.8 - 9.0 %) 10.7 H Eos % (Auto) (0.3 - 3.7 %) 2.5 Baso % (Auto) (0.0 - 2.0 %) 0.6 Neut # (Auto) (2.0 - 7.6 x10 3/uL) 2.38 Lymph # (Auto) (1.0 - 3.8 x10 3/uL) 0.41 L [place] # (Auto) (0.1 - 0.8 x10 3/uL) [...] PRN PRN 04/08 1800 AC IV 05/08 5532 Dose Instructions: (1)Sterile Water: DRESSING CHANGE Results: [...] plan for outpatient follow-up. at 1511 RPT #:[id number] [facility] 2023-04-19 08:50:00 [facility] ([facility] Nephrology Progress Note REPORT#:[id number] REPORT STATUS: Signed DATE:04/19/23 TIME: 0850 PATIENT: TEVIN NYE UNIT #: [id number] [address] AGE: 73 SEX: M ATTEND: Rojelio [...] (Auto) (14.0 - 32.0 %) 12.6 L [place] % (Auto) (4.8 - 9.0 %) 10.7 H Eos % (Auto) (0.3 - 3.7 %) 2.5 Baso % (Auto) (0.0 - 2.0 %) 0.6 Neut # (Auto) (2.0 - 7.6 x10 3/uL) 2.38 Lymph # (Auto) (1.0 - 3.8 x10 3/uL) 0.41 L [place] # (Auto) (0.1 - 0.8 x10 3/uL) [...] sp bone marrow biopsy at 1453 RPT #:[id number] [facility] 2023-04-18 22:13:00 [facility] Podiatry Progress Note REPORT#:[id number] REPORT STATUS: Signed DATE:04/18/23 TIME: 2212 PATIENT: TEVIN NYE UNIT #: [id number] ROOM/BED: [place] [address] : [birth year] AGE: 73 SEX: M ATTEND: Rojelio Magaña MD ADM AUTHOR: Andres RachelM * ALL edits or amendments must be [...] (Auto) (14.0 - 32.0 %) 12.4 L [place] % (Auto) (4.8 - 9.0 %) 9.7 H Eos % (Auto) (0.3 - 3.7 %) 1.9 Baso % (Auto) (0.0 - 2.0 %) 0.8 Neut # (Auto) (2.0 - 7.6 x10 3/uL) 2.75 Lymph # (Auto) (1.0 - 3.8 x10 3/uL) 0.46 L [place] # (Auto) (0.1 - 0.8 x10 3/uL) [...] covering for Dr. Washington at 2215 RPT #:[id number] [facility] 2023-04-18 17:26:00 [facility] ([facility] Avery/Oncology Progress Note REPORT#:[id number] REPORT STATUS: Signed DATE:04/18/23 TIME: 1726 PATIENT: TEVIN NYE UNIT #: [id number] ROOM/BED: [place] [address] : [birth year] AGE: 73 SEX: M ATTEND: [...] Musculoskeletal: full range of motion, normal inspection Neuro/EXPENSE ANALYST: alert, oriented X 3 Ulcer: Type/cause: scab [...] (Auto) (14.0 - 32.0 %) 12.4 L [place] % (Auto) (4.8 - 9.0 %) 9.7 H Eos % (Auto) (0.3 - 3.7 %) 1.9 Baso % (Auto) (0.0 - 2.0 %) 0.8 Neut # (Auto) (2.0 - 7.6 x10 3/uL) 2.75 Lymph # (Auto) (1.0 - 3.8 x10 3/uL) 0.46 L [place] # (Auto) (0.1 - 0.8 x10 3/uL) [...] 70 MG 08,04/15 DC 04/18 SUBQ 05/15 195 1100 Amiodarone HCl 200 MG DAILY 04/14 900 AC 04/18 PO 05/14 0859 1045 Metoprolol [...] constipation. * I will continue to follow. 8 Counts continue to be low. Bone marrow aspiration biopsy ordered, pending. Continue to follow. 8 Status post bone marrow aspiration and biopsy [...] follow-up in 1 week. at 1727 RPT #:[id number] [facility] 2023-04-18 14:43:00 [facility] [facility] Hospital[facility] Note REPORT#:[id number] REPORT STATUS: Signed DATE:04/18/23 TIME: 1443 PATIENT: TEVIN NYE UNIT #: [id number] ROOM/BED: 5517-1 : 51 AGE: 73 SEX: [...] Musculoskeletal: normal inspection, painless range of motion Neuro/EXPENSE ANALYST: alert, oriented X 3, CNII-XII intact Skin: [...] (Auto) (14.0 - 32.0 %) 12.4 L [place] % (Auto) (4.8 - 9.0 %) 9.7 H Eos % (Auto) (0.3 - 3.7 %) 1.9 Baso % (Auto) (0.0 - 2.0 %) 0.8 Neut # (Auto) (2.0 - 7.6 x10 3/uL) 2.75 Lymph # (Auto) (1.0 - 3.8 x10 3/uL) 0.46 L [place] # (Auto) (0.1 - 0.8 x10 3/uL) [...] recommend IRF check labs in am f/up evelyneht DR. Rinaldi 04/14- awiaitng tranfer to rehab. [...] ok will all MD's. at 1445 RPT #:[id number] [facility] 2023-04-18 14:38:00 [facility] ([facility]) Cardiology Progress Note REPORT#:[id number] REPORT STATUS: Signed DATE:04/18/23 TIME: 1438 PATIENT: TEVIN NYE UNIT #: [id number] ROOM/BED: [place] [address] : [birth year] AGE: 73 SEX: M ATTEND: [...] assessment: abnormal pedal pulse Musculoskeletal: normal inspection Neuro/EXPENSE ANALYST: alert, oriented X 3, normal speech Skin: [...] (Auto) (14.0 - 32.0 %) 12.4 L [place] % (Auto) (4.8 - 9.0 %) 9.7 H Eos % (Auto) (0.3 - 3.7 %) 1.9 Baso % (Auto) (0.0 - 2.0 %) 0.8 Neut # (Auto) (2.0 - 7.6 x10 3/uL) 2.75 Lymph # (Auto) (1.0 - 3.8 x10 3/uL) 0.46 L [place] # (Auto) (0.1 - 0.8 x10 3/uL) [...] MDM by Dr. Haynes. at 1443 at 1427 RPT #:[id number] [facility] 2023-04-18 14:19:00 [facility] Rehab Progress Note REPORT#:[id number] REPORT STATUS: Signed DATE:04/18/23 TIME: 1419 PATIENT: TEVIN NYE UNIT #: [id number] ROOM/BED: [address] : [birth year] AGE: 73 SEX: M [...] No Advanced Progression: No Effects of Treatment: [place] of care decreased Circulation improved Gait quality improved Function Improved Post [place] Precautions: FALL Review Plan of Care: Yes PT charges: Gait Training 77465 Gait Cmt: PATIENT WAS ABLE TO AMBULATE [...] Rolling Right/Left: Independent Supine to Sit: Modified [place] Sit to Supine: Modified [place] Scooting in bed: Independent TRANSFERS: Yes Bed [...] general: Musculoskeletal - general: normal muscle mass Neuro/EXPENSE ANALYST: alert, oriented X 3, CNII-XII intact, normal speech, no sensory deficits Results Findings/Data: Laboratory Tests: 04/18 04/18 04/18 04/17 1051 0742 6710 1922 Chemistry Sodium (134 - 147 mEq/L) [...] (Auto) (14.0 - 32.0 %) 12.4 L [place] % (Auto) (4.8 - 9.0 %) 9.7 H Eos % (Auto) (0.3 - 3.7 %) 1.9 Baso % (Auto) (0.0 - 2.0 %) 0.8 Neut # (Auto) (2.0 - 7.6 x10 3/uL) 2.75 Lymph # (Auto) (1.0 - 3.8 x10 3/uL) 0.46 L [place] # (Auto) (0.1 - 0.8 x10 3/uL) [...] He is willing to stay here at [facility]. 04/14: Continue with therapy as tolerated. Pending [...] plan discussed with patient. at 1303 RPT #:[id number] [facility] 2023-04-18 12:52:00 [facility] Pulmonology Progress Note REPORT#:[id number] REPORT STATUS: Signed DATE:04/18/23 TIME: 1252 PATIENT: TEVIN NYE UNIT #: [id number] ROOM/BED: [place] [address] : 51 AGE: 73 SEX: M ATTEND: [...] GM BID PRN PRN PO Miscellaneous Information [facility] 1 EACH ASDIR [...] all, no clubbing, no cyanosis, no edema Neuro/EXPENSE ANALYST: CNII-XII intact Skin: dry, intact Ulcer: Type/cause: [...] (Auto) (14.0 - 32.0 %) 12.4 L [place] % (Auto) (4.8 - 9.0 %) 9.7 H Eos % (Auto) (0.3 - 3.7 %) 1.9 Baso % (Auto) (0.0 - 2.0 %) 0.8 Neut # (Auto) (2.0 - 7.6 x10 3/uL) 2.75 Lymph # (Auto) (1.0 - 3.8 x10 3/uL) 0.46 L [place] # (Auto) (0.1 - 0.8 x10 3/uL) [...] pulmonary function test outpatient. Follows with the ID but looking for civilian offal worker due to issues with the [facility] care [...] noted. Switch to Eliquis at 1254 RPT #:[id number] END OF REPORT [facility] 2023-04-18 12:23:00 [facility] ([facility]) Gastroenterology Progress Note REPORT#:[id number] REPORT STATUS: Signed DATE:04/18/23 TIME: 1223 PATIENT: TEVIN NYE UNIT #: [id number] ROOM/BED: [place] [address] : 51 AGE: 73 SEX: M ATTEND: Rojelio Magaña MD ADM AUTHOR: Clint Roman * ALL edits or amendments must be made on the electronic/computer document * Clint Roman 04/18/23 1223: Subjective Comments: tolerating po. no [...] GM BID PRN PRN PO Miscellaneous Information ([facility] TO DOSE) 1 EACH ASDIR SUBQ [...] no distention Extremities: decreased range of motion Neuro/EXPENSE ANALYST: alert, oriented X 3 Skin: dry, intact [...] (Auto) (14.0 - 32.0 %) 12.4 L [place] % (Auto) (4.8 - 9.0 %) 9.7 H Eos % (Auto) (0.3 - 3.7 %) 1.9 Baso % (Auto) (0.0 - 2.0 %) 0.8 Neut # (Auto) (2.0 - 7.6 x10 3/uL) 2.75 Lymph # (Auto) (1.0 - 3.8 x10 3/uL) 0.46 L [place] # (Auto) (0.1 - 0.8 x10 3/uL) [...] results pending - switched to eliquis for Roberto Glaser 04/18/23 1549: Attestations Physician Attestation Agree w/findings plan: Agree with the findings and plan as documented by Abel PRITCHARD; at 1415 at 1549 RPT #:[id number] [facility] 2023-04-18 08:08:00 [facility] ([facility]) Nephrology Progress Note REPORT#:[id number] REPORT STATUS: Signed DATE:04/18/23 TIME: 807 PATIENT: TEVIN NYE UNIT #: [id number] ROOM/BED: [place] [address] : 51 AGE: 73 SEX: M ATTEND: [...] 14 119/59 79.1 97 / 1631 49 04/17 1600 98.2 37 15 [...] Impressions: CAT SCAN - CT GUID NDL [facility] (Biopsy/Asp) 04/17 1035 Report Impression - Status: [...] from nephrology for discharge. at 1039 RPT #:[id number] [facility] 2023-04-17 23:01:00 [facility] Avery/Oncology Progress Note REPORT#:[id number] REPORT STATUS: Signed DATE:04/17/23 TIME: 230 PATIENT: TEVIN NYE UNIT #: [id number] ROOM/BED: [place] [address] : 51 AGE: 73 SEX: M ATTEND: [...] Musculoskeletal: full range of motion, normal inspection Neuro/EXPENSE ANALYST: alert, oriented X 3 Ulcer: Type/cause: scab [...] (Auto) (14.0 - 32.0 %) 12.8 L [place] % (Auto) (4.8 - 9.0 %) 9.8 H Eos % (Auto) (0.3 - 3.7 %) 1.6 Baso % (Auto) (0.0 - 2.0 %) 1.0 Neut # (Auto) (2.0 - 7.6 x10 3/uL) 2.25 Lymph # (Auto) (1.0 - 3.8 x10 3/uL) 0.39 L [place] # (Auto) (0.1 - 0.8 x10 3/uL) [...] Recent Impressions: CAT SCAN - CT GUID [facility] (Biopsy/Asp) 04/17 1035 Report Impression - Status: SIGNED Entered: 04/17/2023 1128 IMPRESSION: CT-guided bone marrow aspiration and core biopsy. Impression By: [email or web address] Og Croft M.D. Results: labs reviewed, vital signs [...] on a long-term basis. at 2305 RPT #:[id number] [facility] 2023-04-17 22:52:00 [facility] Podiatry Progress Note REPORT#:[id number] REPORT STATUS: Signed DATE:04/17/23 TIME: 2251 PATIENT: TEVIN NYE UNIT #: [id number] ROOM/BED: [place] [address] : 51 AGE: 73 SEX: M ATTEND: [...] (Auto) (14.0 - 32.0 %) 12.8 L [place] % (Auto) (4.8 - 9.0 %) 9.8 H Eos % (Auto) (0.3 - 3.7 %) 1.6 Baso % (Auto) (0.0 - 2.0 %) 1.0 Neut # (Auto) (2.0 - 7.6 x10 3/uL) 2.25 Lymph # (Auto) (1.0 - 3.8 x10 3/uL) 0.39 L [place] # (Auto) (0.1 - 0.8 x10 3/uL) [...] Impressions: CAT SCAN - CT GUID NDL [facility] (Biopsy/Asp) 04/17 1035 Report Impression - Status: [...] covering for Dr. Washington at 2254 RPT #:[id number] [facility] 2023-04-17 17:59:00 [facility] ([facility]) Pulmonology Progress Note REPORT#:[id number] REPORT STATUS: Signed DATE:04/17/23 TIME: 1758 PATIENT: TEVIN NYE UNIT #: [id number] ROOM/BED: [place] [address] : 51 AGE: 73 SEX: M ATTEND: [...] all, no clubbing, no cyanosis, no edema Neuro/EXPENSE ANALYST: CNII-XII intact Skin: dry, intact Ulcer: Type/cause: scab left foot. Psychiatry: normal affect, normal judgment/insight, normal mood Results Findings/Data: Laboratory Tests 04/17/23 0722: [Embedded Image Not Available] Laboratory Tests 04/17 04/17 04/17 04/17 04/16 1150 1149 0722 0713 9 Chemistry Sodium (134 - 147 mEq/L) 137 [...] (Auto) (14.0 - 32.0 %) 12.8 L [place] % (Auto) (4.8 - 9.0 %) 9.8 H Eos % (Auto) (0.3 - 3.7 %) 1.6 Baso % (Auto) (0.0 - 2.0 %) 1.0 Neut # (Auto) (2.0 - 7.6 x10 3/uL) 2.25 Lymph # (Auto) (1.0 - 3.8 x10 3/uL) 0.39 L [place] # (Auto) (0.1 - 0.8 x10 3/uL) [...] Impressions: CAT SCAN - CT GUID NDL [facility] (Biopsy/Asp) 04/17 1035 Report Impression - Status: [...] pulmonary function test outpatient. Follows with the ID but looking for civilian offal worker due to issues with the [facility] care [...] Heme PT/OT Rehab eval at 1801 RPT #:[id number] [facility] 2023-04-17 14:41:00 [facility] Hospitalist Progress Note REPORT#:[id number] REPORT STATUS: Signed DATE:04/17/23 TIME: 1441 PATIENT: TEVIN NYE UNIT #: [id number] ROOM/BED: [place] [address] : 51 AGE: 73 SEX: M ATTEND: [...] Musculoskeletal: normal inspection, painless range of motion Neuro/EXPENSE ANALYST: alert, oriented X 3, CNII-XII intact Skin: [...] IV 1025 Enoxaparin Sodium 70 MG 799,04/15 2000 AC 04/16 SUBQ 05/15 1959 2140 Amiodarone HCl 200 MG DAILY 04/14 900 AC 04/16 PO 05/14 0859 0902 Metoprolol Tartrate 25 MG Q8HR 04/10 1400 AC 04/17 PO 05/08 2259 0507 Atorvastatin Calcium 40 MG 2100 04/09 2100 AC 04/16 PO 05/09 205 214 Lactulose 20 GM BID PRN PRN 04/09 [...] (Auto) (14.0 - 32.0 %) 12.8 L [place] % (Auto) (4.8 - 9.0 %) 9.8 H Eos % (Auto) (0.3 - 3.7 %) 1.6 Baso % (Auto) (0.0 - 2.0 %) 1.0 Neut # (Auto) (2.0 - 7.6 x10 3/uL) 2.25 Lymph # (Auto) (1.0 - 3.8 x10 3/uL) 0.39 L [place] # (Auto) (0.1 - 0.8 x10 3/uL) [...] Impressions: CAT SCAN - CT GUID NDL [facility] (Biopsy/Asp) 04/17 1035 Report Impression - Status: [...] no approval for rehab. at 1446 RPT #:[id number] [facility] 2023-04-17 11:38:00 [facility] Nephrology Progress Note REPORT#:[id number] REPORT STATUS: Signed DATE:04/17/23 TIME: 1138 PATIENT: TEVIN NYE UNIT #: [id number] ROOM/BED: [place] [address] : 51 AGE: 73 SEX: M ATTEND: [...] scab left foot. Results Findings/Data: Laboratory Tests 04/1722 0713 2028 1621 Chemistry Sodium (134 - [...] (Auto) (14.0 - 32.0 %) 12.8 L [place] % (Auto) (4.8 - 9.0 %) 9.8 H Eos % (Auto) (0.3 - 3.7 %) 1.6 Baso % (Auto) (0.0 - 2.0 %) 1.0 Neut # (Auto) (2.0 - 7.6 x10 3/uL) 2.25 Lymph # (Auto) (1.0 - 3.8 x10 3/uL) 0.39 L [place] # (Auto) (0.1 - 0.8 x10 3/uL) [...] Recent Impressions: CAT SCAN - CT GUID [facility] (Biopsy/Asp) 04/17 1035 Report Impression - Status: SIGNED Entered: 04/17/2023 9615 IMPRESSION: CT-guided bone marrow aspiration and core [...] from nephrology for discharge. at 1421 RPT #:[id number] [facility] 2023-04-17 11:27:00 [facility]) Gastroenterology Progress Note REPORT#:[id number] REPORT STATUS: Signed DATE:04/17/23 TIME: 1127 PATIENT: TEVIN NYE UNIT #: [id number] ROOM/BED: [place] [address] : 51 AGE: 73 SEX: M ATTEND: [...] 0712 Resp 15 04/17 0712 FiO2 28 /03 0800 24 hour I O ending at 0700: 08 0700 04/16 1900 Intake Total Output Total [...] GM BID PRN PRN PO Miscellaneous Information ([facility] TO DOSE) 1 EACH ASDIR SUBQ [...] no distention Extremities: decreased range of motion Neuro/EXPENSE ANALYST: alert, oriented X 3 Skin: dry, intact Ulcer: Type/cause: scab left foot. Psychiatry: normal affect, normal judgment/insight Results Findings/Data: Laboratory Tests 04/17/23721: [Embedded Image Not Available] Laboratory Tests 04/1722 0713 2028 1621 Chemistry Sodium (134 - [...] (Auto) (14.0 - 32.0 %) 12.8 L [place] % (Auto) (4.8 - 9.0 %) 9.8 H Eos % (Auto) (0.3 - 3.7 %) 1.6 Baso % (Auto) (0.0 - 2.0 %) 1.0 Neut # (Auto) (2.0 - 7.6 x10 3/uL) 2.25 Lymph # (Auto) (1.0 - 3.8 x10 3/uL) 0.39 L [place] # (Auto) (0.1 - 0.8 x10 3/uL) [...] - diet as tolerated at 1131 RPT #:[id number] [facility] 2023-04-17 09:02:00 [facility] Rehab Progress Note REPORT#:[id number] REPORT STATUS: Signed DATE:04/17/23 TIME: 901 PATIENT: TEVIN NYE UNIT #: [id number] ROOM/BED: [place] [address] : 51 AGE: 73 SEX: M ATTEND: [...] FORWARD Antalgic Gait Left Effects of Treatment: [place] of care decreased Circulation improved Gait quality improved Function Improved Post [place] Precautions: FALL WC TO FOLLOW Review Plan of Care: Yes PT charges: Gait Training 21027 Gait Cmt: Pt tolerated tx, very motivated [...] BED MOBILITY: Yes Supine to Sit: Modified [place] TRANSFERS: Yes Sit to/from stand: Supervision or [...] RW WITH : 04/16/23 GL2: Y SUPERVISION. Prison Goals TARGET DATE GOAL MET PRIOR TO [...] 20-30 minutes Document OT charges: SELF/HOME MGT/ADL [id number] If this is the patient's last treatment, this entry Start Time: 1001 Stop Time: 1027 Treatment time ( minutes): 0:26 Completed by: Elise Randhawa Conference/Supervising OT: Shirley Supervising Therapist: Alia Hassan - GROOMING/HYGIENE: ----- Safety awareness demonstrated ----- ----- ----- Lower Extremity Dressing: Maximal Assistance Increased time required: Yes Requires set up of supplies: Yes Requires physical assist to dress Lower Extremity: Don Clothing and Adjust Doff Clothing and Adjust Due to: Decrease mobility/balance Decreased Range of Motion ----- . 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 [...] general: Musculoskeletal - general: normal muscle mass Neuro/EXPENSE ANALYST: alert, oriented X 3, CNII-XII intact, normal speech, no sensory deficits Results Findings/Data: Laboratory Tests: 04/17 04/17 04/16 04/16 04/16 0722 0785 5323 1051 1103 Chemistry Sodium (134 - 147 mEq/L) [...] (Auto) (14.0 - 32.0 %) 12.8 L [place] % (Auto) (4.8 - 9.0 %) 9.8 H Eos % (Auto) (0.3 - 3.7 %) 1.6 Baso % (Auto) (0.0 - 2.0 %) 1.0 Neut # (Auto) (2.0 - 7.6 x10 3/uL) 2.25 Lymph # (Auto) (1.0 - 3.8 x10 3/uL) 0.39 L [place] # (Auto) (0.1 - 0.8 x10 3/uL) [...] He is willing to stay here at [facility]. 04/14: Continue with therapy as tolerated. Pending IRF transfer. Encouraged increased time EOB/OOB to build endurance, balance and strength. 04/15: Gi cleared to start on anticoagulation given PE likley. Cr stable and trending down. Hematology consulted [...] with interdisciplinary treatment plan. at 1748 RPT #:[id number] [facility] 2023-04-16 22:54:00 [facility] ([facility]) Avery/Oncology Progress Note REPORT#:[id number] REPORT STATUS: Signed DATE:04/16/23 TIME: 2253 PATIENT: TEVIN NYE UNIT #: [id number] ROOM/BED: 5517-1 : 51 AGE: 73 SEX: [...] Musculoskeletal: full range of motion, normal inspection Neuro/EXPENSE ANALYST: alert, oriented X 3 Ulcer: Type/cause: scab left foot. Results Findings/Data: Laboratory Tests 04/16/2343: [Embedded Image Not Available] Laboratory Tests 04/16 [...] (Auto) (14.0 - 32.0 %) 10.2 L [place] % (Auto) (4.8 - 9.0 %) 10.5 H Eos % (Auto) (0.3 - 3.7 %) 2.4 Baso % (Auto) (0.0 - 2.0 %) 0.5 Neut # (Auto) (2.0 - 7.6 x10 3/uL) 2.80 Lymph # (Auto) (1.0 - 3.8 x10 3/uL) 0.38 L [place] # (Auto) (0.1 - 0.8 x10 3/uL) [...] MG DAILY 04/14 900 AC 04/16 PO 09/06 0859 0902 Metoprolol Tartrate 25 MG Q8HR [...] pending. Continue to follow. at 2256 RPT #:[id number] [facility] 2023-04-16 20:47:00 [facility]) Podiatry Progress Note REPORT#:[id number] REPORT STATUS: Signed DATE:04/16/23 TIME: 2046 PATIENT: TEVIN NYE UNIT #: [id number] ROOM/BED: [place] [address] : 51 AGE: 73 SEX: M ATTEND: Pablo Kumar MD ADM AUTHOR: Andres RachelM * ALL edits or amendments must be [...] Rate 2 04/16 1553 FiO2 28 04/10 0800 PATIENT WEIGHT: Weight [...] prevalon boots. covering for Dr. Washington at 6283 RPT #:[id number] [facility] 2023-04-16 16:43:00 [facility] ([facility]) Cardiology Progress Note REPORT#:[id number] REPORT STATUS: Signed DATE:04/16/23 TIME: 1643 PATIENT: TEVIN NYE UNIT #: [id number] ROOM/BED: 5517-1 : 51 AGE: 73 SEX: [...] assessment: abnormal pedal pulse Musculoskeletal: normal inspection Neuro/EXPENSE ANALYST: alert, oriented X 3, normal speech Skin: [...] - 10.5 mg/dL) 8.0 Laboratory Tests 04/16 06 Hematology WBC (4.5 - 11.0 x10 [...] (Auto) (14.0 - 32.0 %) 10.2 L [place] % (Auto) (4.8 - 9.0 %) 10.5 H Eos % (Auto) (0.3 - 3.7 %) 2.4 Baso % (Auto) (0.0 - 2.0 %) 0.5 Neut # (Auto) (2.0 - 7.6 x10 3/uL) 2.80 Lymph # (Auto) (1.0 - 3.8 x10 3/uL) 0.38 L [place] # (Auto) (0.1 - 0.8 x10 3/uL) [...] Dr. Haynes. at 1645 at 1443 RPT #:[id number] [facility] 2023-04-16 14:07:00 [facility] ([facility] Nephrology Progress Note REPORT#:[id number] REPORT STATUS: Signed DATE:04/16/23 TIME: 1407 PATIENT: TVEIN NYE UNIT #: [id number] [address]BED: [address] : [birth year] AGE: 73 SEX: M [...] Genitourinary: no bladder distention Extremities: no edema Neuro/EXPENSE ANALYST: alert, oriented X 3 Ulcer: Type/cause: scab [...] (Auto) (14.0 - 32.0 %) 10.2 L [place] % (Auto) (4.8 - 9.0 %) 10.5 H Eos % (Auto) (0.3 - 3.7 %) 2.4 Baso % (Auto) (0.0 - 2.0 %) 0.5 Neut # (Auto) (2.0 - 7.6 x10 3/uL) 2.80 Lymph # (Auto) (1.0 - 3.8 x10 3/uL) 0.38 L [place] # (Auto) (0.1 - 0.8 x10 3/uL) [...] from nephrology for discharge. at 1624 RPT #:[id number] [facility] 2023-04-16 13:37:00 [facility] ([facility]) Pulmonology Progress Note REPORT#:[id number] REPORT STATUS: Signed DATE:04/16/23 TIME: 1337 PATIENT: TEVIN NYE UNIT #: [id number] ROOM/BED: 5517-1 : 51 AGE: 73 SEX: [...] all, no clubbing, no cyanosis, no edema Neuro/EXPENSE ANALYST: CNII-XII intact Skin: dry, intact Ulcer: Type/cause: scab left foot. Psychiatry: normal affect, normal judgment/insight, normal mood Results Findings/Data: Laboratory Tests 04/16/2343: [Embedded Image Not Available] Laboratory Tests 04/16 04/16 04/16 04/15 04/15 1103 8098 0643 2006 153 Chemistry Sodium (134 - [...] (Auto) (14.0 - 32.0 %) 10.2 L [place] % (Auto) (4.8 - 9.0 %) 10.5 H Eos % (Auto) (0.3 - 3.7 %) 2.4 Baso % (Auto) (0.0 - 2.0 %) 0.5 Neut # (Auto) (2.0 - 7.6 x10 3/uL) 2.80 Lymph # (Auto) (1.0 - 3.8 x10 3/uL) 0.38 L [place] # (Auto) (0.1 - 0.8 x10 3/uL) [...] [facility] offal worker due to issues with the [facility] care [...] Heme PT/OT Rehab eval at 1338 RPT #:[id number] END OF REPORT [facility] 2023-04-16 11:12:00 [facility] ([facility]) Gastroenterology Progress Note REPORT#:[id number] REPORT STATUS: Signed DATE:04/16/23 TIME: 111 PATIENT: TEVIN NYE UNIT #: [id number] ROOM/BED: [place] [address] : 51 AGE: 73 SEX: M ATTEND: [...] Flow Rate 3 04/16 0744 FiO2 28 / 0800 PATIENT WEIGHT: Weight [...] no distention Extremities: decreased range of motion Neuro/EXPENSE ANALYST: alert, oriented X 3 Skin: dry, intact [...] (Auto) (14.0 - 32.0 %) 10.2 L [place] % (Auto) (4.8 - 9.0 %) 10.5 H Eos % (Auto) (0.3 - 3.7 %) 2.4 Baso % (Auto) (0.0 - 2.0 %) 0.5 Neut # (Auto) (2.0 - 7.6 x10 3/uL) 2.80 Lymph # (Auto) (1.0 - 3.8 x10 3/uL) 0.38 L [place] # (Auto) (0.1 - 0.8 x10 3/uL) [...] documented by Abel PRITCHARD; at 1450 at 165 RPT #:[id number] [facility] 2023-04-16 10:13:00 [facility] ([facility]) Hospitalist Progress Note REPORT#:[id number] REPORT STATUS: Signed DATE:04/16/23 TIME: 1013 PATIENT: TEVIN NYE UNIT #: [id number] ROOM/BED: [place] [address] : 51 AGE: 73 SEX: M ATTEND: [...] Musculoskeletal: normal inspection, painless range of motion Neuro/EXPENSE ANALYST: alert, oriented X 3, CNII-XII intact Skin: dry, intact Ulcer: Type/cause: scab left foot. Results Radiology data: Laboratory Tests 04/16/23 0643: [Embedded Image Not Available] 04/15/23 0615: [Embedded Image Not Available] Current Medications Sig/Yas Start time Last Medication Dose Route Stop Time Status Admin Enoxaparin Sodium 70 MG 799,04/15 AC 04/16 SUBQ 05/15 Furosemide 20 MG [...] 04/08 2300 AC 04/15 PO 05/08 225 2107 Acetaminophen 650 MG Q4H PRN PRN [...] (Auto) (14.0 - 32.0 %) 10.2 L [place] % (Auto) (4.8 - 9.0 %) 10.5 H Eos % (Auto) (0.3 - 3.7 %) 2.4 Baso % (Auto) (0.0 - 2.0 %) 0.5 Neut # (Auto) (2.0 - 7.6 x10 3/uL) 2.80 Lymph # (Auto) (1.0 - 3.8 x10 3/uL) 0.38 L [place] # (Auto) (0.1 - 0.8 x10 3/uL) [...] recommend IRF check labs in am f/up wijose Rinaldi 04/14- awiaitng tranfer to rehab. folow h/h. ask heme to see. 8- h/h stable. cleared by GI to change lovenox to Eliquis if pulmonary wishes. 8/9- hgb 7.3. Bone marrow bx planned. at 1014 RPT #:[id number] [facility] 2023-04-16 09:22:00 [facility] ([facility]) Rehab Progress Note REPORT#:[id number] REPORT STATUS: Signed DATE:04/16/23 TIME: 921 PATIENT: TEVIN NYE UNIT #: [id number] ROOM/BED: [place] [address] : 52 AGE: 73 SEX: M ATTEND: [...] FORWARD Antalgic Gait Left Effects of Treatment: [place] of care decreased Circulation improved Gait quality improved Function Improved Post [place] Precautions: FALL WC TO FOLLOW Review Plan of Care: Yes PT charges: Gait Training 62284 Gait Cmt: Pt tolerated tx well demo [...] WITH : 04/16/23 ST GL2: Y SUPERVISION. Prison Goals TARGET DATE GOAL MET Physical Exam General appearance: alert, awake Psych: alert, normal affect Neck: non-tender, supple Cardiovascular: regular rate rhythm, S1/S2 Respiratory: diminished breath sounds, aerating well Abdomen: bowel sounds present, soft, non-tender Ulcer: Type/cause: scab left foot. Musculoskeletal - general: Musculoskeletal - general: normal muscle mass Neuro/EXPENSE ANALYST: alert, oriented X 3, CNII-XII intact, normal [...] (Auto) (14.0 - 32.0 %) 10.2 L [place] % (Auto) (4.8 - 9.0 %) 10.5 H Eos % (Auto) (0.3 - 3.7 %) 2.4 Baso % (Auto) (0.0 - 2.0 %) 0.5 Neut # (Auto) (2.0 - 7.6 x10 3/uL) 2.80 Lymph # (Auto) (1.0 - 3.8 x10 3/uL) 0.38 L [place] # (Auto) (0.1 - 0.8 x10 3/uL) [...] He is willing to stay here at [facility]. 04/14: Continue with therapy as tolerated. Pending [...] with interdisciplinary treatment plan. at 2116 RPT #:[id number] [facility] 2023-04-15 22:15:00 [facility] Avery/Oncology Progress Note REPORT#:[id number] REPORT STATUS: Signed DATE:04/15/23 TIME: 2214 PATIENT: TEVIN NYE UNIT #: [id number] ROOM/BED: 55[facility] : 51 AGE: 73 SEX: M ATTEND: [...] Musculoskeletal: full range of motion, normal inspection Neuro/EXPENSE ANALYST: alert, oriented X 3 Ulcer: Type/cause: scab [...] (Auto) (14.0 - 32.0 %) 7.3 L [place] % (Auto) (4.8 - 9.0 %) 9.6 H Eos % (Auto) (0.3 - 3.7 %) 1.8 Baso % (Auto) (0.0 - 2.0 %) 0.5 Neut # (Auto) (2.0 - 7.6 x10 3/uL) 3.10 Lymph # (Auto) (1.0 - 3.8 x10 3/uL) 0.28 L [place] # (Auto) (0.1 - 0.8 x10 3/uL) [...] Status Admin Enoxaparin Sodium 70 MG 0800,04/15 2000 AC 04/15 SUBQ 05/15 1959 2107 [...] will continue to follow. at 2219 RPT #:[id number] [facility] 2023-04-15 20:52:00 [facility] Podiatry Progress Note REPORT#:[id number] REPORT STATUS: Signed DATE:04/15/23 TIME: 2051 PATIENT: TEVIN NYE UNIT #: [id number] ROOM/BED: [place] [address] : 51 AGE: 73 SEX: M ATTEND: [...] I O ending at 0700: 08/08 0700 08/07 1900 Intake Total Output Total 800 Balance [...] (Auto) (14.0 - 32.0 %) 7.3 L [place] % (Auto) (4.8 - 9.0 %) 9.6 H Eos % (Auto) (0.3 - 3.7 %) 1.8 Baso % (Auto) (0.0 - 2.0 %) 0.5 Neut # (Auto) (2.0 - 7.6 x10 3/uL) 3.10 Lymph # (Auto) (1.0 - 3.8 x10 3/uL) 0.28 L [place] # (Auto) (0.1 - 0.8 x10 3/uL) [...] covering for Dr. [place] at 2053 RPT #:[id number] [facility] 2023-04-15 11:57:00 [facility] ([facility]) Gastroenterology Progress Note REPORT#:[id number] REPORT STATUS: Signed DATE:04/15/23 TIME: 1157 PATIENT: TEVIN NYE UNIT #: [id number] ROOM/BED: [place] [address] : 51 AGE: 73 SEX: M ATTEND: Pablo Kumar MD ADM AUTHOR: Clint Roman * ALL edits or amendments must be made on the electronic/computer document * Clint Roman 04/15/23 1157: Subjective Comments: no further rectal bleeding reported. no nausea or vomiting. no abdominal pain Review of Systems Additional notes: 10 point ros neg except hpi Objective General VS/I O: Last Documented: Result Date Time Pulse Ox 99 04/15 1047 B/P 127/69 04/15 1047 B/P Mean 88.5 04/15 1047 Temp 98.2 04/15 1047 Pulse 64 04/15 1047 Resp 17 04/15 1047 O2 Delivery Nasal cannula 04/15 09 O2 Flow Rate 2 04/15 0915 FiO2 [...] no distention Extremities: decreased range of motion Neuro/EXPENSE ANALYST: alert, oriented X 3 Skin: dry, intact Ulcer: Type/cause: scab left foot. Psychiatry: normal affect, normal judgment/insight Results Findings/Data: Laboratory Tests 04/15/23614: [Embedded Image Not Available] Laboratory Tests 04/15 04/15 04/15 04/15 04/14 1046 0651 0615 15 2028 Chemistry Sodium (134 - 147 mEq/L) [...] 110 MG/DL) 215 H Laboratory Tests 04/1515 0615 Hematology WBC [...] (Auto) (14.0 - 32.0 %) 7.3 L [place] % (Auto) (4.8 - 9.0 %) 9.6 H Eos % (Auto) (0.3 - 3.7 %) 1.8 Baso % (Auto) (0.0 - 2.0 %) 0.5 Neut # (Auto) (2.0 - 7.6 x10 3/uL) 3.10 Lymph # (Auto) (1.0 - 3.8 x10 3/uL) 0.28 L [place] # (Auto) (0.1 - 0.8 x10 3/uL) [...] hematology following, appreciate input Roberto Galeano 04/16/23 9273: Attestations Physician Attestation Agree w/findings plan: Agree with the findings and plan as documented by Abel PRITCHARD; at 1253 at 1653 [facility] #:[id number] END OF REPORT [facility] 2023-04-15 10:44:00 [facility] ([facility]) Hospitalist Progress Note REPORT#:[id number] REPORT STATUS: Signed DATE:04/15/23 TIME: 1044 PATIENT: TEVIN NYE UNIT #: [id number] ROOM/BED: [place] [address] : [birth year] AGE: 73 SEX: M ATTEND: Palbo Kumar MD ADM AUTHOR: Pablo Kumar MD [...] Musculoskeletal: normal inspection, painless range of motion Neuro/EXPENSE ANALYST: alert, oriented X 3, CNII-XII intact Skin: [...] (Auto) (14.0 - 32.0 %) 7.3 L [place] % (Auto) (4.8 - 9.0 %) 9.6 H Eos % (Auto) (0.3 - 3.7 %) 1.8 Baso % (Auto) (0.0 - 2.0 %) 0.5 Neut # (Auto) (2.0 - 7.6 x10 3/uL) 3.10 Lymph # (Auto) (1.0 - 3.8 x10 3/uL) 0.28 L [place] # (Auto) (0.1 - 0.8 x10 3/uL) [...] labs in am f/up gricel Rinaldi 04/14- otoniel tranfer to rehab. folow h/h. ask heme to see. 04/15- h/h stable. cleared by GI to change lovenox to Eliquis if pulmonary wishes. at 1046 RPT #:[id number] [facility] 2023-04-15 10:25:00 [facility] Pulmonology Progress Note REPORT#:[id number] REPORT STATUS: Signed DATE:04/15/23 TIME: 1025 PATIENT: TEVIN NYE UNIT #: [id number] ROOM/BED: [place] [address] : 51 AGE: 73 SEX: M ATTEND: [...] Ox 96 04/15 0824 B/P 120/63 04/15 0652 B/P Mean 82.1 04/15 06 Temp 36.8 [...] all, no clubbing, no cyanosis, no edema Neuro/EXPENSE ANALYST: CNII-XII intact Skin: dry, intact Ulcer: Type/cause: [...] (Auto) (14.0 - 32.0 %) 7.3 L [place] % (Auto) (4.8 - 9.0 %) 9.6 H Eos % (Auto) (0.3 - 3.7 %) 1.8 Baso % (Auto) (0.0 - 2.0 %) 0.5 Neut # (Auto) (2.0 - 7.6 x10 3/uL) 3.10 Lymph # (Auto) (1.0 - 3.8 x10 3/uL) 0.28 L [place] # (Auto) (0.1 - 0.8 x10 3/uL) [...] pulmonary function test outpatient. Follows with the ID but looking for civilian offal worker due to issues with the [facility] care [...] Eliquis PT/OT Rehab eval at 1026 RPT #:[id number] [facility] 2023-04-15 09:34:00 [facility] ([facility]) Rehab Progress Note REPORT#:[id number] REPORT STATUS: Signed DATE:04/15/23 TIME: 933 PATIENT: TEVIN NYE UNIT #: [id number] ROOM/BED: [place] [address] : [birth year] AGE: 73 SEX: M ATTEND: [...] No Advanced Progression: No Effects of Treatment: [place] of care decreased Circulation improved [place] Precautions: FALL WC TO FOLLOW Review Plan of Care: Yes PT charges: Gait Training 48551 Gait Cmt: PATIENT COULD AMBULATE FOR 100 FT AND 200 FT USING RW WITH MIN. ASSSIST, HAD TO REST PENITENTIARY DUE TO SHORTNESS OF BREATH , O2 [...] general: Musculoskeletal - general: normal muscle mass Neuro/EXPENSE ANALYST: alert, oriented X 3, CNII-XII intact, normal [...] (Auto) (14.0 - 32.0 %) 7.3 L [place] % (Auto) (4.8 - 9.0 %) 9.6 H Eos % (Auto) (0.3 - 3.7 %) 1.8 Baso % (Auto) (0.0 - 2.0 %) 0.5 Neut # (Auto) (2.0 - 7.6 x10 3/uL) 3.10 Lymph # (Auto) (1.0 - 3.8 x10 3/uL) 0.28 L [place] # (Auto) (0.1 - 0.8 x10 3/uL) [...] He is willing to stay here at [facility]. 04/14: Continue with therapy as tolerated. Pending [...] plan discussed with patient. at 2134 RPT #:[id number] [facility] 2023-04-15 08:06:00 [facility] ([facility] Nephrology Progress Note REPORT#:[id number] REPORT STATUS: Signed DATE:04/15/23 TIME: 805 PATIENT: TEVIN NYE UNIT #: [id number] ROOM/BED: [place] [address] : [birth year] AGE: 73 SEX: M ATTEND: [...] cannula 04/147 99 Nasal 2 cannula 04/14 2031 98.2 [...] Genitourinary: no bladder distention Extremities: no edema Neuro/EXPENSE ANALYST: alert, oriented X 3 Ulcer: Type/cause: scab [...] (Auto) (14.0 - 32.0 %) 7.3 L [place] % (Auto) (4.8 - 9.0 %) 9.6 H Eos % (Auto) (0.3 - 3.7 %) 1.8 Baso % (Auto) (0.0 - 2.0 %) 0.5 Neut # (Auto) (2.0 - 7.6 x10 3/uL) 3.10 Lymph # (Auto) (1.0 - 3.8 x10 3/uL) 0.28 L [place] # (Auto) (0.1 - 0.8 x10 3/uL) [...] from nephrology for discharge. at 1624 RPT #:[id number] [facility] 2023-04-14 23:05:00 [facility] ([facility]) Avery/Oncology Consult Note REPORT#:[id number] REPORT STATUS: Signed DATE:04/14/23 TIME: 2305 PATIENT: TEVIN NYE UNIT #: [id number] ROOM/BED: [address]: [birth year] AGE: 73 SEX: M ATTEND: Pablo [...] 0000 AC 04/14 (DUONEB) NEB 05/09 0000 2057 Tamsulosin HCl 0.8 [...] cannula 04/14 2250 O2 Flow Rate 2 08/07 2250 Pulse 59 04/140 Resp 14 04/14 2250 Temp 36.8 04/14 [...] Musculoskeletal: full range of motion, normal inspection Neuro/EXPENSE ANALYST: alert, oriented X 3 Ulcer: Type/cause: scab [...] (Auto) (14.0 - 32.0 %) 9.7 L [place] % (Auto) (4.8 - 9.0 %) 8.6 Eos % (Auto) (0.3 - 3.7 %) 1.4 Baso % (Auto) (0.0 - 2.0 %) 0.9 Neut # (Auto) (2.0 - 7.6 x10 3/uL) 2.74 Lymph # (Auto) (1.0 - 3.8 x10 3/uL) 0.34 L [place] # (Auto) (0.1 - 0.8 x10 3/uL) [...] 1144 0919 Enoxaparin Sodium 85 MG Q12H / 1800 AC 04/14 SUBQ 05/12 1759 1733 [...] much for this consultation. at 2327 RPT #:[id number] END OF REPORT [facility] 2023-04-14 21:57:00 [facility] ([facility]) Podiatry Progress Note REPORT#:[id number] REPORT STATUS: Signed DATE:04/14/23 TIME: 2156 PATIENT: TEVIN NYE UNIT #: [id number] ROOM/BED: [place] [address] : [birth year] AGE: 73 SEX: M ATTEND: [...] (Auto) (14.0 - 32.0 %) 9.7 L [place] % (Auto) (4.8 - 9.0 %) 8.6 Eos % (Auto) (0.3 - 3.7 %) 1.4 Baso % (Auto) (0.0 - 2.0 %) 0.9 Neut # (Auto) (2.0 - 7.6 x10 3/uL) 2.74 Lymph # (Auto) (1.0 - 3.8 x10 3/uL) 0.34 L [place] # (Auto) (0.1 - 0.8 x10 3/uL) [...] prevalon boots. covering for Dr. Washington at 3097 RPT #:[id number] [facility] 2023-04-14 14:58:00 [facility] ([facility] Consult[place] REPORT#:[id number] REPORT STATUS: Signed DATE:04/14/23 TIME: 7078 PATIENT: TEVIN NYE UNIT #: [id number] ROOM/BED: [place] [address] : [birth year] AGE: 73 SEX: M ATTEND: [...] 03/13/23 04/08/23 Strength: 81 MG TAB.CHEW 1447 183 Allergies: Coded Allergies: Penicillins (USE COMMENT BUTTON [...] GM BID PRN PRN PO Miscellaneous Information ([facility] TO DOSE) 1 EACH ASDIR SUBQ [...] no distention Extremities: decreased range of motion Neuro/EXPENSE ANALYST: alert, oriented X 3 Skin: dry, intact [...] (Auto) (14.0 - 32.0 %) 9.7 L [place] % (Auto) (4.8 - 9.0 %) 8.6 Eos % (Auto) (0.3 - 3.7 %) 1.4 Baso % (Auto) (0.0 - 2.0 %) 0.9 Neut # (Auto) (2.0 - 7.6 x10 3/uL) 2.74 Lymph # (Auto) (1.0 - 3.8 x10 3/uL) 0.34 L [place] # (Auto) (0.1 - 0.8 x10 3/uL) [...] documented by Abel PRITCHARD; at 1704 at 1654 RPT #:[id number] [facility] 2023-04-14 12:10:00 [facility] ([facility]) Pulmonology Progress Note REPORT#:[id number] REPORT STATUS: Signed DATE:04/14/23 TIME: 1210 PATIENT: TEVIN NYE UNIT #: [id number] ROOM/BED: [place] [address] : 51 AGE: 73 SEX: M ATTEND: [...] all, no clubbing, no cyanosis, no edema Neuro/EXPENSE ANALYST: CNII-XII intact Skin: dry, intact Ulcer: Type/cause: [...] (Auto) (14.0 - 32.0 %) 9.7 L [place] % (Auto) (4.8 - 9.0 %) 8.6 Eos % (Auto) (0.3 - 3.7 %) 1.4 Baso % (Auto) (0.0 - 2.0 %) 0.9 Neut # (Auto) (2.0 - 7.6 x10 3/uL) 2.74 Lymph # (Auto) (1.0 - 3.8 x10 3/uL) 0.34 L [place] # (Auto) (0.1 - 0.8 x10 3/uL) [...] Impression By: BuckAMDiomedes - Margarito Borges M.D. Results: x-ray personally [...] pulmonary function test outpatient. Follows with the ID but looking for civilian offal worker due to issues with the ID care RLL nodule CT chest 03/03/2023. 1.5 [...] to transitioning to Eliquis at 1213 RPT #:[id number] [facility] 2023-04-14 11:26:00 [facility] ([facility] Nephrology Progress Note REPORT#:[id number] REPORT STATUS: Signed DATE:04/14/23 TIME: 1126 PATIENT: TEVIN NYE UNIT #: [id number] ROOM/BED: [place] [address] : [birth year] AGE: 73 SEX: M ATTEND: [...] Sodium Chloride (SODIUM CHLORIDE 0.9%) 1,000 ML .[id number] IV (DC) Aspirin (ASPIRIN) 81 MG DAILY [...] Genitourinary: no bladder distention Extremities: no edema Neuro/EXPENSE ANALYST: alert, oriented X 3 Ulcer: Type/cause: scab [...] (Auto) (14.0 - 32.0 %) 9.7 L [place] % (Auto) (4.8 - 9.0 %) 8.6 Eos % (Auto) (0.3 - 3.7 %) 1.4 Baso % (Auto) (0.0 - 2.0 %) 0.9 Neut # (Auto) (2.0 - 7.6 x10 3/uL) 2.74 Lymph # (Auto) (1.0 - 3.8 x10 3/uL) 0.34 L [place] # (Auto) (0.1 - 0.8 x10 3/uL) [...] from nephrology for discharge. at 1334 RPT #:[id number] [facility] 2023-04-14 10:38:00 [facility] Cardiothoracic Surgery Prog REPORT#:[id number] REPORT STATUS: Signed DATE:04/14/23 TIME: 1038 PATIENT: TEVIN NYE UNIT #: [id number] ROOM/BED: [place] [address] : [birth year] AGE: 73 SEX: M ATTEND: [...] moves all Musculoskeletal: full range of motion Neuro/EXPENSE ANALYST: alert, oriented X 3 Skin: dry, intact [...] stay. The patient presented to hospital on [facility] for evaluation of shortness of breath. During [...] will be rehab at 1040 at 1227 [facility] #:[id number] [facility] 2023-04-14 10:34:00 [facility] ([facility]) Hospitalist Progress Note REPORT#:[id number] REPORT STATUS: Signed DATE:04/14/23 TIME: 1034 PATIENT: TEVIN NYE UNIT #: [id number] ROOM/BED: [place] [address] : [birth year] AGE: 73 SEX: M ATTEND: [...] Musculoskeletal: normal inspection, painless range of motion Neuro/EXPENSE ANALYST: alert, oriented X 3, CNII-XII intact Skin: [...] 20 MG ONCE ONE 04/13 1400 DC 08 IV 04/13 1401 1637 Furosemide 20 MG [...] IRR 05/09 1229 Sodium Chloride 1,000 ML .[id number] 04/09 1145 DC 04/13 IV 05/09 1144 [...] Laboratory Tests: 04/14 04/14 04/13 04/13 0719 4582 0657 1619 Chemistry Sodium (134 - 147 mEq/L) [...] (Auto) (14.0 - 32.0 %) 9.7 L [place] % (Auto) (4.8 - 9.0 %) 8.6 Eos % (Auto) (0.3 - 3.7 %) 1.4 Baso % (Auto) (0.0 - 2.0 %) 0.9 Neut # (Auto) (2.0 - 7.6 x10 3/uL) 2.74 Lymph # (Auto) (1.0 - 3.8 x10 3/uL) 0.34 L [place] # (Auto) (0.1 - 0.8 x10 3/uL) [...] labs in am f/up gricel Rinaldi 04/14- awiaitng tranfer to rehab. folow h/h. ask heme to see. at 1040 RPT #:[id number] [facility] 2023-04-14 10:25:00 [facility] ([facility]) Rehab Progress Note REPORT#:[id number] REPORT STATUS: Signed DATE:04/14/23 TIME: 1025 PATIENT: TEVIN NYE UNIT #: [id number] ROOM/BED: [place] [address] : 51 AGE: 73 SEX: M ATTEND: [...] 86 16 108/53 71.7 99 Nasal cannula 04/137 98.1 41 16 147/56 86.4 98 Nasal cannula 04/135 98.2 42 18 156/62 93.7 99 04/13 1927 93 Room air 04/13 1621 98.1 39 17 145/64 91.0 98 04/13 1204 98.1 83 17 157/65 95.5 99 PATIENT WEIGHT: Weight (lb): Weight (oz): Weight (kg): 86.200 Functional Progress Functional progress: ACTIVITIES PERFORMED: Grooming and Hygiene: Yes Toileting: Yes [facility] Activity: No Precautions: Fall Requires verbal [...] EVAL NOTES. Document OT charges: SELF/HOME MGT/ADL [id number] Document Pain/Education: No Review OT Plan of [...] general: Musculoskeletal - general: normal muscle mass Neuro/EXPENSE ANALYST: alert, oriented X 3, CNII-XII intact, normal [...] (Auto) (14.0 - 32.0 %) 9.7 L [place] % (Auto) (4.8 - 9.0 %) 8.6 Eos % (Auto) (0.3 - 3.7 %) 1.4 Baso % (Auto) (0.0 - 2.0 %) 0.9 Neut # (Auto) (2.0 - 7.6 x10 3/uL) 2.74 Lymph # (Auto) (1.0 - 3.8 x10 3/uL) 0.34 L [place] # (Auto) (0.1 - 0.8 x10 3/uL) [...] He is willing to stay here at [facility]. 04/14: Continue with therapy as tolerated. Pending IRF transfer. Encouraged increased time EOB/OOB to build endurance, balance and strength. Rehab attestation: Face to face exam completed. Treatment plan discussed with patient. at 1641 RPT #:[id number] [facility] 2023-04-14 07:35:00 [facility] ([facility] Cardiology Progress Note REPORT#:[id number] REPORT STATUS: Signed DATE:04/14/23 TIME: 734 PATIENT: TEVIN NYE UNIT #: [id number] ROOM/BED: [place] [address] : [birth year] AGE: 73 SEX: M ATTEND: [...] 1204 36.7 83 17 157/65 95.5 99 / 0902 99 Nasal 3 cannula 04/13 0900 [...] Sodium Chloride (SODIUM CHLORIDE 0.9%) 1,000 ML .[id number] IV (DC) Aspirin (ASPIRIN) 81 MG DAILY [...] assessment: abnormal pedal pulse Musculoskeletal: normal inspection Neuro/EXPENSE ANALYST: alert, oriented X 3, normal speech Skin: [...] Dr. Haynes. at 1432 at 1243 RPT #:[id number] [facility] 2023-04-13 23:58:00 [facility] Hospitalist Progress Note REPORT#:[id number] REPORT STATUS: Signed DATE:04/13/23 TIME: 8 PATIENT: TEVIN NYE UNIT #: [id number] ROOM/BED: [place] [address] : [birth year] AGE: 73 SEX: M ATTEND: [...] Sodium Chloride (SODIUM CHLORIDE 0.9%) 1,000 ML .[id number] IV (DC) Aspirin (ASPIRIN) 81 MG DAILY [...] Musculoskeletal: normal inspection, painless range of motion Neuro/EXPENSE ANALYST: alert, oriented X 3, CNII-XII intact Skin: [...] (Auto) (14.0 - 32.0 %) 8.9 L [place] % (Auto) (4.8 - 9.0 %) 6.7 Eos % (Auto) (0.3 - 3.7 %) 1.7 Baso % (Auto) (0.0 - 2.0 %) 0.8 Neut # (Auto) (2.0 - 7.6 x10 3/uL) 2.90 Lymph # (Auto) (1.0 - 3.8 x10 3/uL) 0.32 L [place] # (Auto) (0.1 - 0.8 x10 3/uL) [...] f/up wiht DR. Rinaldi at 0022 RPT #:[id number] [facility] 2023-04-13 14:27:00 [facility] ([facility]) Podiatry Progress Note REPORT#:[id number] REPORT STATUS: Signed DATE:04/13/23 TIME: 1427 PATIENT: TEVIN NYE UNIT #: [id number] ROOM/BED: [place] [address] : [birth year] AGE: 73 SEX: M ATTEND: [...] Sodium Chloride (SODIUM CHLORIDE 0.9%) 1,000 ML .[id number] IV (DC) Aspirin (ASPIRIN) 81 MG DAILY [...] (Auto) (14.0 - 32.0 %) 8.9 L [place] % (Auto) (4.8 - 9.0 %) 6.7 Eos % (Auto) (0.3 - 3.7 %) 1.7 Baso % (Auto) (0.0 - 2.0 %) 0.8 Neut # (Auto) (2.0 - 7.6 x10 3/uL) 2.90 Lymph # (Auto) (1.0 - 3.8 x10 3/uL) 0.32 L [place] # (Auto) (0.1 - 0.8 x10 3/uL) [...] covering for Dr. Washington at 1118 RPT #:[id number] [facility] 2023-04-13 13:56:00 [facility] ([facility]) Pulmonology Progress Note REPORT#:[id number] REPORT STATUS: Signed DATE:04/13/23 TIME: 1355 PATIENT: TEVIN NYE UNIT #: [id number] ROOM/BED: [place] [address] : [birth year] AGE: 73 SEX: M ATTEND: Elvie Gamboa MD ADM AUTHOR: David Goodwin * ALL edits or amendments must be [...] Flow Rate 3 04/13 0902 FiO2 28 / 0800 24 hour I [...] Sodium Chloride (SODIUM CHLORIDE 0.9%) 1,000 ML .[id number] IV (DC) Aspirin (ASPIRIN) 81 MG DAILY [...] all, no clubbing, no cyanosis, no edema Neuro/EXPENSE ANALYST: CNII-XII intact Skin: dry, intact Ulcer: Type/cause: scab left foot. Psychiatry: normal affect, normal judgment/insight, normal mood Results Findings/Data: Laboratory Tests 04/13/23619: [Embedded Image Not Available] Laboratory Tests 04/13 [...] - 1.00 IU/mL) 0.56 L Laboratory Tests 08/06 0620 Hematology WBC (4.5 - 11.0 x10 [...] (Auto) (14.0 - 32.0 %) 8.9 L [place] % (Auto) (4.8 - 9.0 %) 6.7 Eos % (Auto) (0.3 - 3.7 %) 1.7 Baso % (Auto) (0.0 - 2.0 %) 0.8 Neut # (Auto) (2.0 - 7.6 x10 3/uL) 2.90 Lymph # (Auto) (1.0 - 3.8 x10 3/uL) 0.32 L [place] # (Auto) (0.1 - 0.8 x10 3/uL) [...] pulmonary function test outpatient. Follows with the ID but looking for civilian offal worker due to issues with the ID care RLL nodule CT chest 03/03/2023. 1.5 [...] transitioning to longer term anticoagulation such as EliquChristiano Diehl 04/13/23 1740: Attestations Physician Attestation Agree w/findings plan: Seen and examined. I agree with the findings and plan as documented by Ezra Goodwin PA-C. at 1401 at 1744 RPT #:[id number] [facility] 2023-04-13 11:45:00 [facility] ([facility]) Nephrology Progress Note REPORT#:[id number] REPORT STATUS: Signed DATE:04/13/23 TIME: 1145 PATIENT: TEVIN NYE UNIT #: [id number] ROOM/BED: [place] [address] : [birth year] AGE: 73 SEX: M ATTEND: [...] GM BID PRN PRN PO Miscellaneous Information ([facility] TO DOSE) 1 EACH ASDIR SUBQ ( CKD) Sterile Water (WATER FOR IRRIGATION) DRESSING CHANGE ASDIR PRN IRR Sodium Chloride (SODIUM CHLORIDE 0.9%) 1,000 ML .[id number] IV (DCr) Aspirin (ASPIRIN) 81 MG DAILY [...] Genitourinary: no bladder distention Extremities: no edema Neuro/EXPENSE ANALYST: alert, oriented X 3 Ulcer: Type/cause: scab [...] (Auto) (14.0 - 32.0 %) 8.9 L [place] % (Auto) (4.8 - 9.0 %) 6.7 Eos % (Auto) (0.3 - 3.7 %) 1.7 Baso % (Auto) (0.0 - 2.0 %) 0.8 Neut # (Auto) (2.0 - 7.6 x10 3/uL) 2.90 Lymph # (Auto) (1.0 - 3.8 x10 3/uL) 0.32 L [place] # (Auto) (0.1 - 0.8 x10 3/uL) [...] from nephrology for discharge. at 1149 RPT #:[id number] [facility] 2023-04-13 07:29:00 [facility] ([facility]) Cardiothoracic Surgery Prog REPORT#:[id number] REPORT STATUS: Signed DATE:04/13/23 TIME: 728 PATIENT: TEVIN NYE UNIT #: [id number] ROOM/BED: [place] [address] : [birth year] AGE: 73 SEX: M ATTEND: [...] moves all Musculoskeletal: full range of motion Neuro/EXPENSE ANALYST: alert, oriented X 3 Skin: dry, intact [...] stay. The patient presented to hospital on [facility] for evaluation of shortness of breath. During [...] function improved. Disposisiton will be rehab. at 6632 at 0717 [facility] #:[id number] [facility] 2023-04-12 15:35:00 [facility] ([facility]) Hospitalist Progress Note REPORT#:[id number] REPORT STATUS: Signed DATE:04/12/23 TIME: 1535 PATIENT: TEVIN NYE UNIT #: [id number] ROOM/BED: [place] [address] : [birth year] AGE: 73 SEX: M ATTEND: [...] 96 04/12 0349 96 Nasal 2 cannula / 0000 97.9 68 14 143/64 90.1 95 04/118 98 Nasal 2 cannula 04/11 1947 98.1 [...] Sodium Chloride (SODIUM CHLORIDE 0.9%) 1,000 ML .[id number] IV Aspirin (ASPIRIN) 81 MG DAILY PO [...] Musculoskeletal: normal inspection, painless range of motion Neuro/EXPENSE ANALYST: alert, oriented X 3, CNII-XII intact Skin: [...] (Auto) (14.0 - 32.0 %) 8.1 L [place] % (Auto) (4.8 - 9.0 %) 6.2 Eos % (Auto) (0.3 - 3.7 %) 2.4 Baso % (Auto) (0.0 - 2.0 %) 1.0 Neut # (Auto) (2.0 - 7.6 x10 3/uL) 3.40 Lymph # (Auto) (1.0 - 3.8 x10 3/uL) 0.34 L [place] # (Auto) (0.1 - 0.8 x10 3/uL) [...] f/up wiht DR. Rinaldi at 1538 RPT #:[id number] [facility] 2023-04-12 15:01:00 [facility]) Pulmonology Progress Note REPORT#:[id number] REPORT STATUS: Signed DATE:04/12/23 TIME: 150 PATIENT: TEVIN NYE UNIT #: [id number] ROOM/BED: [address] : [birth year] AGE: 73 SEX: M [...] 86 MG Q24H SUBQ (DC) Miscellaneous Information ([facility] TO [facility]) 1 EACH ASDIR SUBQ ( CKD) Sterile Water (WATER FOR IRRIGATION) DRESSING CHANGE ASDIR PRN IRR Sodium Chloride (SODIUM CHLORIDE 0.9%) 1,000 ML .[id number] IV Aspirin (ASPIRIN) 81 MG DAILY PO [...] all, no clubbing, no cyanosis, no edema Neuro/EXPENSE ANALYST: CNII-XII intact Skin: dry, intact Ulcer: Type/cause: [...] (Auto) (14.0 - 32.0 %) 8.1 L [place] % (Auto) (4.8 - 9.0 %) 6.2 Eos % (Auto) (0.3 - 3.7 %) 2.4 Baso % (Auto) (0.0 - 2.0 %) 1.0 Neut # (Auto) (2.0 - 7.6 x10 3/uL) 3.40 Lymph # (Auto) (1.0 - 3.8 x10 3/uL) 0.34 L [place] # (Auto) (0.1 - 0.8 x10 3/uL) [...] pulmonary function test outpatient. Follows with the ID but looking for civilian offal worker due to issues with the ID care RLL nodule CT chest 03/03/2023. 1.5 [...] Goodwin PA-C. at 1502 at 2159 RPT #:[id number] [facility] 2023-04-12 09:09:00 [facility] ([facility]) Cardiology Progress Note REPORT#:[id number] REPORT STATUS: Signed DATE:04/12/23 TIME: 908 PATIENT: TEVIN NYE UNIT #: [id number] ROOM/BED: 5517[address]1 : 52 AGE: 73 SEX: [...] Sodium Chloride (SODIUM CHLORIDE 0.9%) 1,000 ML .[id number] IV Aspirin (ASPIRIN) 81 MG DAILY PO [...] assessment: abnormal pedal pulse Musculoskeletal: normal inspection Neuro/EXPENSE ANALYST: alert, oriented X 3, normal speech Skin: dry, intact Ulcer: Type/cause: scab left foot. Psychiatry: normal affect, normal judgment/insight, normal mood Results Findings/Data: Laboratory Tests 04/12 04/12 04/11 04/11 04/11 0713 [...] (Auto) (14.0 - 32.0 %) 8.1 L [place] % (Auto) (4.8 - 9.0 %) 6.2 Eos % (Auto) (0.3 - 3.7 %) 2.4 Baso % (Auto) (0.0 - 2.0 %) 1.0 Neut # (Auto) (2.0 - 7.6 x10 3/uL) 3.40 Lymph # (Auto) (1.0 - 3.8 x10 3/uL) 0.34 L [place] # (Auto) (0.1 - 0.8 x10 3/uL) [...] Dr. Haynes. at 1448 at 1822 RPT #:[id number] [facility] 2023-04-12 08:15:00 [facility] (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 3 [facility] Mobility Score: 17 FUNCTIONAL MOBILITY Items [...] Lung surgery ( collapsed lung). Language Spoken: Barb[place] Pump Servicer Helper Provided: No Hand Preference: Right Hand Prior [...] Fair Recommendations: Case Management PT Consult Modified [place] Score: No MR Screening Performed: Discharge Screening Document Pain/Education: No Post [place] Precautions: In Bed, rails Up Bed Alarm Office Clerk Routine Light in Reach Nursing Notified O2 on Post [place] Comments: PT EDU ON SAFETY/ SELF CARE. Evaluation Type: High Complexity Reason for Eval Complexity: Multiple Comorbidities Document OT charges: EVAL OT HIGH COMP [id number] Comments: PT WOULD BENEFIT FROM SKILLED OT [...] Normal Gross Motor Coordination: Normal Right Hand Marine Pilot Strength: Fair Left Hand Marine Pilot Strength: Fair FUNCTIONAL MOBILITY FUNCTIONAL MOBILITY Items [...] personal grooming, such as brushing teeth? 3 [facility] Activity Score: 9 ACTIVITIES OF DAILY [...] Status Admin Enoxaparin Sodium 95 MG Q24H 04/12 1830 AC (lovENOX) SUBQ 05/12 1829 Enoxaparin [...] 05/09 1229 IRRIGATION) Sodium Chloride 1,000 ML .[id number] 04/09 1145 AC 04/12 (SODIUM CHLORIDE IV [...] Ox 96 04/12 711 B/P 143/68 04/12 711 B/P Mean 93.1 04/12 07 Temp 97.7 [...] general: Musculoskeletal - general: normal muscle mass Neuro/EXPENSE ANALYST: alert, oriented X 3, CNII-XII intact, normal [...] (Auto) (14.0 - 32.0 %) 8.1 L [place] % (Auto) (4.8 - 9.0 %) 6.2 Eos % (Auto) (0.3 - 3.7 %) 2.4 Baso % (Auto) (0.0 - 2.0 %) 1.0 Neut # (Auto) (2.0 - 7.6 x10 3/uL) 3.40 Lymph # (Auto) (1.0 - 3.8 x10 3/uL) 0.34 L [place] # (Auto) (0.1 - 0.8 x10 3/uL) [...] He is willing to stay here at [facility]. Thank you for this consult, we will follow along and make any further rehab recommendations based on his overall functional status/progress. at 1354 RPT #:[id number] [facility] 2023-04-11 23:38:00 [facility] ([facility] Hospitalist Progress Note REPORT#:[id number] REPORT STATUS: Signed DATE:04/11/23 TIME: 2337 PATIENT: TEVIN NYE UNIT #: [id number] ROOM/BED: [place] [address] : 51 AGE: 73 SEX: M ATTEND: [...] Sodium Chloride (SODIUM CHLORIDE 0.9%) 1,000 ML .[id number] IV Aspirin (ASPIRIN) 81 MG DAILY PO [...] Musculoskeletal: normal inspection, painless range of motion Neuro/EXPENSE ANALYST: alert, oriented X 3, CNII-XII intact Skin: [...] (Auto) (14.0 - 32.0 %) 9.6 L [place] % (Auto) (4.8 - 9.0 %) 6.6 Eos % (Auto) (0.3 - 3.7 %) 1.9 Baso % (Auto) (0.0 - 2.0 %) 0.5 Neut # (Auto) (2.0 - 7.6 x10 3/uL) 3.00 Lymph # (Auto) (1.0 - 3.8 x10 3/uL) 0.36 L [place] # (Auto) (0.1 - 0.8 x10 3/uL) [...] to IRF follow labs at 1113 RPT #:[id number] [facility] 2023-04-11 15:27:00 [facility] [place] [facility] ([facility]) Podiatry Progress Note REPORT#:[id number] REPORT STATUS: Signed DATE:04/11/23 TIME: 152 PATIENT: TEVIN NYE UNIT #: [id number] ROOM/BED: [place] [address] : 51 AGE: 73 SEX: M ATTEND: [...] Sodium Chloride (SODIUM CHLORIDE 0.9%) 1,000 ML .[id number] IV Aspirin (ASPIRIN) 81 MG DAILY PO [...] L dorsalis pedis Results Findings/Data: Laboratory Tests: 04/1104 1200 3857 0559 0443 Chemistry Sodium (134 - 147 [...] (Auto) (14.0 - 32.0 %) 9.6 L [place] % (Auto) (4.8 - 9.0 %) 6.6 Eos % (Auto) (0.3 - 3.7 %) 1.9 Baso % (Auto) (0.0 - 2.0 %) 0.5 Neut # (Auto) (2.0 - 7.6 x10 3/uL) 3.00 Lymph # (Auto) (1.0 - 3.8 x10 3/uL) 0.36 L [place] # (Auto) (0.1 - 0.8 x10 3/uL) [...] covering for Dr. Washington at 1529 RPT #:[id number] [facility] 2023-04-11 14:53:00 [facility]) Pulmonology Progress Note REPORT#:[id number] REPORT STATUS: Signed DATE:04/11/23 TIME: 1452 PATIENT: TEVIN NYE UNIT #: [id number] ROOM/BED: [place] [address] : 51 AGE: 73 SEX: M ATTEND: Elvie Gamboa MD ADM AUTHOR: Rose Canseco * ALL edits or [...] all, no clubbing, no cyanosis, no edema Neuro/EXPENSE ANALYST: CNII-XII intact Skin: dry, intact Ulcer: Type/cause: [...] (Auto) (14.0 - 32.0 %) 9.6 L [place] % (Auto) (4.8 - 9.0 %) 6.6 Eos % (Auto) (0.3 - 3.7 %) 1.9 Baso % (Auto) (0.0 - 2.0 %) 0.5 Neut # (Auto) (2.0 - 7.6 x10 3/uL) 3.00 Lymph # (Auto) (1.0 - 3.8 x10 3/uL) 0.36 L [place] # (Auto) (0.1 - 0.8 x10 3/uL) [...] [facility] offal worker due to issues with the [facility] care [...] cancer S/p radiation in 2021 Christiano Gutierrez [place] 04/11/23 1847: Diagnosis, Assessment Plan Orders: Procedure Date/time Status CBC W/AUTO DIFF 04/12 0500 Active EVAL PT HIGH COMPLEX [id number] 04/11 1404 Active PT: POCC - PT STAFF ONLY 04/11 1404 Active ADL 15 MIN 04/11 1113 Active FUNCTIONAL TRAINING 04/11 1108 Active OT: POCC - OT STAFF ONLY 04/11 1103 Active EVAL OT HIGH COMPLEX [id number] 04/11 1103 Active Attestations Physician Attestation Agree w/findings plan: Seen and examined. I agree with the findings and plan as documented by Carlos Canseco PA-C. at 1458 at 7957 RPT #:[id number] [facility] 2023-04-11 12:37:00 [facility] [place] [facility] ([facility]) Cardiology Progress Note REPORT#:[id number] REPORT STATUS: Signed DATE:04/11/23 TIME: 1237 PATIENT: TEVIN NYE UNIT #: [id number] ROOM/BED: [place] [address] : 51 AGE: 73 SEX: M ATTEND: [...] 72.6 97 04/10 2110 Nasal 2 cannula 04/104 98 Nasal 2 cannula 04/10 1956 36.5 [...] Sodium Chloride (SODIUM CHLORIDE 0.9%) 1,000 ML .[id number] IV Aspirin (ASPIRIN) 81 MG DAILY PO [...] assessment: abnormal pedal pulse Musculoskeletal: normal inspection Neuro/EXPENSE ANALYST: alert, oriented X 3, normal speech Skin: [...] (Auto) (14.0 - 32.0 %) 9.6 L [place] % (Auto) (4.8 - 9.0 %) 6.6 Eos % (Auto) (0.3 - 3.7 %) 1.9 Baso % (Auto) (0.0 - 2.0 %) 0.5 Neut # (Auto) (2.0 - 7.6 x10 3/uL) 3.00 Lymph # (Auto) (1.0 - 3.8 x10 3/uL) 0.36 L [place] # (Auto) (0.1 - 0.8 x10 3/uL) [...] Dr. Haynes. at 1240 at 1653 RPT #:[id number] [facility] 2023-04-11 10:54:00 [facility] Cardiothoracic Surgery Prog REPORT#:[id number] REPORT STATUS: Signed DATE:04/11/23 TIME: 1054 PATIENT: TEVIN NYE UNIT #: [id number] ROOM/BED: [place] [address] : 51 AGE: 73 SEX: M ATTEND: [...] Pulse 61 04/11 822 Resp 14 04/11 08 FiO2 28 04/10 0800 24 hour I [...] moves all Musculoskeletal: full range of motion Neuro/EXPENSE ANALYST: alert, oriented X 3 Skin: dry, intact [...] stay. The patient presented to hospital on [facility] for evaluation of shortness of breath. During [...] Dr. Beyer at 1056 at 0731 RPT #:[id number] [facility] 2023-04-11 09:10:00 [facility] [place] [facility] ([facility]) Nephrology Progress Note REPORT#:[id number] REPORT STATUS: Signed DATE:04/11/23 TIME: 909 PATIENT: TEVIN NYE UNIT #: [id number] ROOM/BED: [place] [address] : 51 AGE: 73 SEX: M ATTEND: [...] 14 106/48 67.0 97 Room air 04/11 09 Nasal 2 cannula 04/11 0851 99 Nasal [...] Sodium Chloride (SODIUM CHLORIDE 0.9%) 1,000 ML .[id number] IV Aspirin (ASPIRIN) 81 MG DAILY PO [...] Genitourinary: no bladder distention Extremities: no edema Neuro/EXPENSE ANALYST: alert, oriented X 3 Ulcer: Type/cause: scab [...] (Auto) (14.0 - 32.0 %) 9.6 L [place] % (Auto) (4.8 - 9.0 %) 6.6 Eos % (Auto) (0.3 - 3.7 %) 1.9 Baso % (Auto) (0.0 - 2.0 %) 0.5 Neut # (Auto) (2.0 - 7.6 x10 3/uL) 3.00 Lymph # (Auto) (1.0 - 3.8 x10 3/uL) 0.36 L [place] # (Auto) (0.1 - 0.8 x10 3/uL) [...] hemoglobin less than 7. at 1652 RPT #:[id number] [facility] 2023-04-11 01:48:00 [facility] Hospitalist Progress Note REPORT#:[id number] REPORT STATUS: Signed DATE:04/11/23 TIME: 0148 PATIENT: TEVIN NYE UNIT #: [id number] ROOM/BED: [place] [address] : 51 AGE: 73 SEX: M ATTEND: [...] 1956 97.7 80 14 122/53 76.3 96 04/10 1645 [...] Sodium Chloride (SODIUM CHLORIDE 0.9%) 1,000 ML .[id number] IV Aspirin (ASPIRIN) 81 MG DAILY PO [...] Musculoskeletal: normal inspection, painless range of motion Neuro/EXPENSE ANALYST: alert, oriented X 3, CNII-XII intact Skin: dry, intact Ulcer: Type/cause: scab left foot. Results Findings/Data: Laboratory Tests 04/10 04/10 04/10 04/10 04/10 195 1620 1613 1142 0722 Chemistry POC Glucose [...] (Auto) (14.0 - 32.0 %) 8.6 L [place] % (Auto) (4.8 - 9.0 %) 7.7 Eos % (Auto) (0.3 - 3.7 %) 0.7 Baso % (Auto) (0.0 - 2.0 %) 0.9 Neut # (Auto) (2.0 - 7.6 x10 3/uL) 3.58 Lymph # (Auto) (1.0 - 3.8 x10 3/uL) 0.38 L [place] # (Auto) (0.1 - 0.8 x10 3/uL) [...] to monitor follow labs at 1112 RPT #:[id number] END OF REPORT [facility] 2023-04-10 14:17:00 [facility] ([facility]) Nephrology Progress Note REPORT#:[id number] REPORT STATUS: Signed DATE:04/10/23 TIME: 1417 PATIENT: TEVIN NYE UNIT #: [id number] ROOM/BED: [place] [address] : 51 AGE: 73 SEX: M ATTEND: [...] 04/09 1947 97 Nasal 2 cannula 04/09 190 97.7 [...] Sodium Chloride (SODIUM CHLORIDE 0.9%) 1,000 ML .[id number] IV Aspirin (ASPIRIN) 81 MG DAILY PO [...] Genitourinary: no bladder distention Extremities: no edema Neuro/EXPENSE ANALYST: alert, oriented X 3 Ulcer: Type/cause: scab [...] (Auto) (14.0 - 32.0 %) 8.6 L [place] % (Auto) (4.8 - 9.0 %) 7.7 Eos % (Auto) (0.3 - 3.7 %) 0.7 Baso % (Auto) (0.0 - 2.0 %) 0.9 Neut # (Auto) (2.0 - 7.6 x10 3/uL) 3.58 Lymph # (Auto) (1.0 - 3.8 x10 3/uL) 0.38 L [place] # (Auto) (0.1 - 0.8 x10 3/uL) [...] hemoglobin less than 7. at 1426 RPT #:[id number] [facility] 2023-04-10 11:14:00 [facility] Cardiothoracic Surgery Prog REPORT#:[id number] REPORT STATUS: Signed DATE:04/10/23 TIME: 1114 PATIENT: TEVIN NYE UNIT #: [id number] ROOM/BED: [place] [address] : 51 AGE: 73 SEX: M ATTEND: [...] moves all Musculoskeletal: full range of motion Neuro/EXPENSE ANALYST: alert, oriented X 3 Skin: dry, intact [...] stay. The patient presented to hospital on [facility] for evaluation of shortness of breath. During [...] Continue supportive care. at 1141 at 0731 [facility] #:[id number] [facility] 2023-04-10 09:30:00 [id number] [place], [place] [address] PATIENT NAME: TEVIN NYE ADMIT DATE: 04/08/23 ACCOUNT NO: [id number] ROOM NO: G.5517 AGE: 73 REPORT TYPE: eECHOCARDIOGRAM REPORT SEX: M ADMITTING PHYSICIAN:Elvie Gamboa MD ATTENDING PHYSICIAN:Elvie Gamboa MD *[facility] [address] [address] Transthoracic Echocardiogram Patient: Tevin Nye Study Date: 04/09/2023 BP: 103 / 58 Location: LEFTY URN: [id number] : 1950 Age: 73 Height: 67 in / 170.2 cm Gender: M Weight: 189.6 lb / 86.2 kg BMI/BSA: 29.8 kg/m 2 / 1.98 m 2 *Ordering Physician: * Evon Andrew Physic *Interpreting Physician: * Anibal Haynes MD *Vice President Corporate Communications: * Tori Gunn Indications: Shortness of Breath; [...] m/sec ---- Pulmonic valve Value 03/11/2023 Ref FL v, ED 0.56 m/sec ---- Tricuspid valve [...] 09:30 at 0930 PATIENT NAME: TEVIN NYE [facility] 2023-04-10 08:17:00 [facility]) Pulmonology Progress Note REPORT#:[id number] REPORT STATUS: Signed DATE:04/10/23 TIME: 816 PATIENT: TEVIN NYE UNIT #: [id number] ROOM/BED: [place] [address] : 51 AGE: 73 SEX: M ATTEND: Elvie Gamboa MD [facility] AUTHOR: Roes Canseco PA * ALL edits or amendments must be made on the electronic/computer document * Rose Canseco 04/10/23 0817: Subjective Chief complaint: sob HPI: [...] all, no clubbing, no cyanosis, no edema Neuro/EXPENSE ANALYST: CNII-XII intact Skin: dry, intact Psychiatry: normal [...] (Auto) (14.0 - 32.0 %) 8.6 L [place] % (Auto) (4.8 - 9.0 %) 7.7 Eos % (Auto) (0.3 - 3.7 %) 0.7 Baso % (Auto) (0.0 - 2.0 %) 0.9 Neut # (Auto) (2.0 - 7.6 x10 3/uL) 3.58 Lymph # (Auto) (1.0 - 3.8 x10 3/uL) 0.38 L [place] # (Auto) (0.1 - 0.8 x10 3/uL) [...] with [facility] but looking for civilian offal worker due to issues with the [facility] care [...] Canseco PA-C. at 1435 at 1813 RPT #:[id number] [facility] 2023-04-10 06:34:00 [facility]) Podiatry Progress Note REPORT#:[id number] REPORT STATUS: Signed DATE:04/10/23 TIME: 633 PATIENT: TEVIN NYE UNIT #: [id number] ROOM/BED: [place] [address] : 51 AGE: 73 SEX: M ATTEND: [...] Sodium Chloride (SODIUM CHLORIDE 0.9%) 1,000 ML .[id number] IV Aspirin (ASPIRIN) 81 MG DAILY PO [...] indicated. Impression By: [id number] Og Tran M.D. Allergies Allergy [...] covering for Dr. Washington at 0639 RPT #:[id number] [facility] 2023-04-10 06:33:00 [facility] ([facility] Cardiology Progress Note REPORT#:[id number] REPORT STATUS: Signed DATE:04/10/23 TIME: 0633 PATIENT: TEVIN NYE UNIT #: [id number] ROOM/BED: [place] [address] : 51 AGE: 73 SEX: M ATTEND: [...] Sodium Chloride (SODIUM CHLORIDE 0.9%) 1,000 ML .[id number] IV Aspirin (ASPIRIN) 81 MG DAILY PO [...] assessment: abnormal pedal pulse Musculoskeletal: normal inspection Neuro/EXPENSE ANALYST: alert, oriented X 3, normal speech Skin: [...] Plan discussed with: patient, collaborating MD, consultants (henok PRITCHARD) Free Text DxA P Notes Free [...] Dr. Haynes. at 1133 at 1653 RPT #:[id number] [facility] 2023-04-09 23:51:00 [facility] Hospitalist Progress Note REPORT#:[id number] REPORT STATUS: Signed DATE:04/09/23 TIME: 2351 PATIENT: TEVIN NYE UNIT #: [id number] ROOM/BED: [address] : [birth year] AGE: 73 SEX: M [...] Sodium Chloride (SODIUM CHLORIDE 0.9%) 1,000 ML .[id number] IV Aspirin (ASPIRIN) 81 MG DAILY PO [...] Musculoskeletal: normal inspection, painless range of motion Neuro/EXPENSE ANALYST: alert, oriented X 3, CNII-XII intact Skin: [...] (Auto) (14.0 - 32.0 %) 7.1 L [place] % (Auto) (4.8 - 9.0 %) 6.5 Eos % (Auto) (0.3 - 3.7 %) 1.5 Baso % (Auto) (0.0 - 2.0 %) 0.6 Neut # (Auto) (2.0 - 7.6 x10 3/uL) 3.96 Lymph # (Auto) (1.0 - 3.8 x10 3/uL) 0.34 L [place] # (Auto) (0.1 - 0.8 x10 3/uL) [...] s/p XRT follow labs at 1051 RPT #:[id number] [facility] 2023-04-09 18:10:00 [facility] ([facility]) Nephrology Consultation Note REPORT#:[id number] REPORT STATUS: Signed DATE:04/09/23 TIME: 1809 PATIENT: TEVIN NYE UNIT #: [id number] ROOM/BED: [place] [address] : 51 AGE: 73 SEX: M ATTEND: [...] (LIPITOR) 40 MG PO 2100 30 30 /02/2804/08/23 Strength: 40 MG TAB 1445 1840 METOPROLOL TARTRATE 25 MG PO Q12HR 30 60 03/13/23 04/08/23 (LOPRESSOR) 1446 1842 Strength: 25 MG TAB amLODIPine (NORVASC) 10 MG PO DAILY 30 30 03/13/23 04/08/23 Strength: 10 MG TAB 1446 1842 ASPIRIN 81 MG PO DAILY 30 30 03/13/23 04/08/23 Strength: 81 MG TAB.CHEW 1440 1836 Current Hospital Medications: Autonomic Drugs Sig/Yas [...] 2059 Amlodipine Besylate 10 MG DAILY 04/09 09 [...] Genitourinary: no bladder distention Extremities: no edema Neuro/EXPENSE ANALYST: alert, oriented X 3 Ulcer: Type/cause: scab left foot. at 1427 RPT #:[id number] [facility] 2023-04-09 12:16:00 [facility] [place] [facility] ([facility]) Pulmonary Consultation Note REPORT#:[id number] REPORT STATUS: Signed DATE:04/09/23 TIME: 1216 PATIENT: TEVIN NYE UNIT #: [id number] ROOM/BED: [place] [address] : 51 AGE: 73 SEX: M ATTEND: [...] 04/09 1150 O2 Flow Rate 3 04/08 5974 Results Findings/Data: Laboratory Tests 04/09/23 0502: [Embedded [...] - 32.0 %) 7.1 L 7.5 L [place] % (Auto) (4.8 - 9.0 %) 6.5 5.6 Eos % (Auto) (0.3 - 3.7 %) 1.5 0.7 Baso % (Auto) (0.0 - 2.0 %) 0.6 0.7 Neut # (Auto) (2.0 - 7.6 x10 3/uL) 3.96 4.78 Lymph # (Auto) (1.0 - 3.8 x10 3/uL) 0.34 L 0.43 L [place] # (Auto) (0.1 - 0.8 x10 3/uL) [...] pH (5.0 - 7.0) 5.0 Ur Specific [place] (1.005 - 1.030) 1.006 Urine Protein (NEGATIVE) [...] pulmonary function test outpatient. Follows with the ID but looking for civilian offal worker due to issues with the ID care RLL nodule CT chest 03/03/2023. 1.5 [...] Canseco PA-C. at 1531 at 2230 RPT #:[id number] [facility] 2023-04-09 11:56:00 [facility]) Podiatry Consult Note REPORT#:[id number] REPORT STATUS: Signed DATE:04/09/23 TIME: 1156 PATIENT: TEVIN NYE UNIT #: [id number] ROOM/BED: 5517-1 : 51 AGE: 73 SEX: M ATTEND: Rojelio Magaña MD ADM AUTHOR: Reyna Washington DPM * ALL edits [...] 04/09 04/08 04/08 04/08 0502 0453 2316 2029 2025 Chemistry Sodium (134 - 147 mEq/L) [...] (Auto) (14.0 - 32.0 %) 7.1 L [place] % (Auto) (4.8 - 9.0 %) 6.5 Eos % (Auto) (0.3 - 3.7 %) 1.5 Baso % (Auto) (0.0 - 2.0 %) 0.6 Neut # (Auto) (2.0 - 7.6 x10 3/uL) 3.96 Lymph # (Auto) (1.0 - 3.8 x10 3/uL) 0.34 L [place] # (Auto) (0.1 - 0.8 x10 3/uL) [...] (Auto) (14.0 - 32.0 %) 7.5 L [place] % (Auto) (4.8 - 9.0 %) 5.6 Eos % (Auto) (0.3 - 3.7 %) 0.7 Baso % (Auto) (0.0 - 2.0 %) 0.7 Neut # (Auto) (2.0 - 7.6 x10 3/uL) 4.78 Lymph # (Auto) (1.0 - 3.8 x10 3/uL) 0.43 L [place] # (Auto) (0.1 - 0.8 x10 3/uL) [...] pH (5.0 - 7.0) 5.0 Ur Specific [place] (1.005 - 1.030) 1.006 Urine Protein (NEGATIVE) [...] M.D. Results: labs reviewed at 1034 RPT #:[id number] [facility] 2023-04-09 10:02:00 [facility] [place] [facility] ([facility]) Cardiology Consultation REPORT#:[id number] REPORT STATUS: Signed DATE:04/09/23 TIME: 1002 PATIENT: TEVIN NYE UNIT #: [id number] ROOM/BED: [place] [address] : 51 AGE: 73 SEX: M ATTEND: [...] Tests 04/09 04/09 04/08 04/08 04/08 0502 8843 0226 2029 2025 Chemistry Sodium (134 - 147 mEq/L) [...] - 32.0 %) 7.1 L 7.5 L [place] % (Auto) (4.8 - 9.0 %) 6.5 5.6 Eos % (Auto) (0.3 - 3.7 %) 1.5 0.7 Baso % (Auto) (0.0 - 2.0 %) 0.6 0.7 Neut # (Auto) (2.0 - 7.6 x10 3/uL) 3.96 4.78 Lymph # (Auto) (1.0 - 3.8 x10 3/uL) 0.34 L 0.43 L [place] # (Auto) (0.1 - 0.8 x10 3/uL) [...] pH (5.0 - 7.0) 5.0 Ur Specific [place] (1.005 - 1.030) 1.006 Urine Protein (NEGATIVE) [...] not right foot ulcer. at 1800 RPT #:[id number] [facility] 2023-04-09 05:32:00 [facility]) Cardiothoracic Surgery Prog REPORT#:[id number] REPORT STATUS: Signed DATE:04/09/23 TIME: 531 PATIENT: TEVIN NYE UNIT #: [id number] ROOM/BED: [place] [address] : 51 AGE: 73 SEX: M ATTEND: [...] Mean 73.1 04/09 033 Temp 98.1 04/09 0330 Pulse 65 04/09 0330 Resp 18 04/09 033 O2 Delivery Nasal cannula 04/08 2354 O2 [...] moves all Musculoskeletal: full range of motion Neuro/EXPENSE ANALYST: alert, oriented X 3 Skin: dry, intact [...] stay. The patient presented to hospital on [facility] for evaluation of shortness of breath. During [...] 04/09/23 Patient resting comfortable ON 2 L SC Labs reviewed Elevated Creatine. Nephrology consulted. Awaiting echo- Cardiology consulted. COPD, will consult pulmonary Patient was seen and examined by Dr. Beyer. Continue supportive care at 0721 at 1005 [facility] #:[id number] [facility] 2023-04-08 20:36:00 [id number] [facility] [address] [address] PATIENT NAME: TEVIN NYE ADMIT DATE: 04/08/23 ACCOUNT NO: [id number] ROOM NO: [facility] AGE: 73 REPORT TYPE: eELECTROCARDIOGRAM REPORT SEX: M ADMITTING PHYSICIAN:Elvie Gamboa MD ATTENDING PHYSICIAN:Elvie Gamboa MD Order: [id number] Test Reason : RAPID Test Date/Time Stamp: [...] MD at 0703 PATIENT NAME: TEVIN NYE [facility] 2023-04-08 17:55:00 [facility] ([facility] REPORT#:[id number] REPORT STATUS: Signed DATE:04/08/23 TIME: 1755 PATIENT: TEVIN NYE UNIT #: [id number] ROOM/BED: 5517-1 : 51 AGE: 73 SEX: [...] Musculoskeletal: normal inspection, painless range of motion Neuro/EXPENSE ANALYST: alert, oriented X 3, CNII-XII intact Skin: [...] (Auto) (14.0 - 32.0 %) 7.5 L [place] % (Auto) (4.8 - 9.0 %) 5.6 Eos % (Auto) (0.3 - 3.7 %) 0.7 Baso % (Auto) (0.0 - 2.0 %) 0.7 Neut # (Auto) (2.0 - 7.6 x10 3/uL) 4.78 Lymph # (Auto) (1.0 - 3.8 x10 3/uL) 0.43 L [place] # (Auto) (0.1 - 0.8 x10 3/uL) [...] pH (5.0 - 7.0) 5.0 Ur Specific [place] (1.005 - 1.030) 1.006 Urine Protein (NEGATIVE) [...] s/p XRT follow labs at 1049 RPT #:[id number] [facility] 2023-04-08 16:57:00 [facility]) Cardiothoracic Surgery Consult REPORT#:[id number] REPORT STATUS: Signed DATE:04/08/23 TIME: 1656 PATIENT: TEVIN NYE UNIT #: [id number] ROOM/BED: [address] : 51 AGE: 73 SEX: [...] stay. The patient presented to hospital on [facility] for evaluation of shortness of breath. During [...] stay. The patient presented to hospital on [facility] for evaluation of shortness of breath. During [...] to follow at 1706 at 1005 RPT #:[id number] [facility] 2023-04-08 13:58:00 [facility] [place] [facility] ([facility]) EMERGENCY PROVIDER REPORT REPORT#:[id number] REPORT STATUS: Signed DATE:04/08/23 TIME: 1358 PATIENT: TEVIN NYE UNIT #: [id number] ROOM/BED: [place] [address] AGE: 73 SEX: M PCP PHYS: Samuel [...] (Auto) (14.0 - 32.0 %) 7.5 L [place] % (Auto) (4.8 - 9.0 %) 5.6 Eos % (Auto) (0.3 - 3.7 %) 0.7 Baso % (Auto) (0.0 - 2.0 %) 0.7 Neut # (Auto) (2.0 - 7.6 x10 3/uL) 4.78 Lymph # (Auto) (1.0 - 3.8 x10 3/uL) 0.43 L [place] # (Auto) (0.1 - 0.8 x10 3/uL) [...] pH (5.0 - 7.0) 5.0 Ur Specific [place] (1.005 - 1.030) 1.006 Urine Protein (NEGATIVE) [...] Report Impression - Status: SIGNED Entered: 04/08/2023 4964 IMPRESSION: Emphysematous changes noted in the right [...] taking over this patient's care. at 1226 [facility] #:[id number] [facility] 2023-04-08 13:17:00 [id number] [address] PATIENT NAME: TEVIN NYE ADMIT DATE: 04/08/23 ACCOUNT NO: [id number] ROOM NO: G.5517 AGE: 73 REPORT TYPE: eELECTROCARDIOGRAM REPORT SEX: M ADMITTING PHYSICIAN:Elvie Gamboa MD ATTENDING PHYSICIAN:Elvie Gamboa MD Order: [id number] Test Reason : DONE IN ER Test [...] interpretation. Confirmed by JAYANT GROVER MD ([id number]), image editor KEZIA GROVES ([id number]) on 04/08/2023 8:48:43 PM Referred By: Elvie Gamboa Confirmed by:JAYANT GROVER MD at 2048 PATIENT NAME: TEVIN NYE [facility] 2023-04-04 09:07:00 [facility] [place] [facility] ([facility]) DT Operative Note REPORT#:[id number] REPORT STATUS: Signed DATE:04/04/23 TIME: 906 PATIENT: TEVIN NYE UNIT #: [id number] ROOM/BED: : 51 AGE: 73 SEX: M ATTEND: Samuel Mcguire MD ADM DT: AUTHOR: Samuel Mcguire MD * ALL edits or amendments must be made on the electronic/computer document * Operative Report Operative Note Note: On 03/04/[address] Beyer with the aparicio features of this operation incluidng CABGs and LAAA Samuel Mcguire MD at 0908 RPT #:[id number] [facility] 2023-03-18 14:39:00 [id number] [address] PATIENT NAME: TEVIN NYE ADMIT DATE: 03/03/23 ACCOUNT NO: [id number] ROOM NO: G.3343 AGE: 72 REPORT TYPE: 360 - QUERY RESPONSE DOCUMENT SEX: M ADMITTING PHYSICIAN:Luci Byeer MD ATTENDING PHYSICIAN:Luci Beyer MD Provider Query QUERY TEXT: Stage CKD 360MD Query related questions should be directed to:[facility] Coding Query Helpline Based on your clinical [...] PM at 1439 PATIENT NAME: TEVIN NYE [facility] 2023-03-14 16:47:00 [facility] ([facility]) Discharge Summary REPORT#:[id number] REPORT STATUS: Signed DATE:03/14/23 TIME: 164 PATIENT: TEVIN NYE UNIT #: [id number] ROOM/BED: [place] [address] : 51 AGE: 72 SEX: M ATTEND: [...] (November 2022 on eliquis) who presented to [facility] with chest pain, dyspnea on exertion, and NSTEMI. Coronary angiogram was done and revealed severe multivessel coronary artery disease. Patient was then transferred to [facility] for CV surgery evaluation and need for CABG. PLAN Admit patient to CVICU Initiate preop workup Incentive spirometer teaching Carotid ultrasound BLE vein mapping CT chest non-contrast UA to r/o UTI Echocardiogram Heparin and Nitro drip Consult pulmonary, cardiology, and robotic technician Coronary angiogram reviewed and patient will benefit from surgical revascularizaton. The surgery, risks involved, STS score, benefits, complications and alternatives were explained to the patient and his brother. He acknowledged understanding and is willing to proceed. We will tentatively schedule him for surgery tomorrow morning. Further recommendations to follow. 03/04/23 CABG x 4 (MCCORMICK-LAD,SVG-Leana, SVG-OM, SVG-PDA) MARGARITOA EVH (LGSV) Posterior pericardiotomy 03/05/23 POD 1 [...] arranged. Consultants: anesthesiology, cardiology, cardiovascular surgery, critical/ robotic technician, hospitalist Med Rec PCP PCP: PCP: No [...] B/P 124/58 07/ 1110 B/P Mean 0.0 07/06 1110 O2 Delivery Room air 03/13 1110 [...] Family Physician )( Discharge to: Home Health [facility] Discharge Instructions Additional Discharge Routines: Attending Follow-Up )( Diet: Cardiac Follow-up Appointments Attending Physician: Attending Physician: Luci Beyer MD Attending physician follow up timeframe: In 1-2 weeks at 1651 at 1838 RPT #:[id number] [facility] 2023-03-13 13:19:00 [facility]) Pulmonology Progress Note REPORT#:[id number] REPORT STATUS: Signed DATE:03/13/23 TIME: 1319 PATIENT: TEVIN NYE UNIT #: [id number] ROOM/BED: [place] [id number] : [birth year] AGE: 72 SEX: M ATTEND: [...] Delivery Room air 03/13 1110 Temp 36.8 / 1110 Pulse 63 03/13 1110 Resp 25 03/13 1110 O2 Flow Rate 2 07/05 2200 FiO2 28 07/04 2131 24 hour I O ending at 0700: 06 0700 03/12 1900 Intake Total 1040 Output [...] Lispro (HUMALOG) 0 AC HS SUBQ Ipratropium [place] (ATROVENT) 500 MCG RTQ2H PRN PRN INH [...] no guarding Extremities: no clubbing, no cyanosis Neuro/EXPENSE ANALYST: alert, oriented X 3, no motor deficits [...] (Auto) (14.0 - 32.0 %) 4.6 L [place] % (Auto) (4.8 - 9.0 %) 7.2 Eos % (Auto) (0.3 - 3.7 %) 1.8 Baso % (Auto) (0.0 - 2.0 %) 0.0 Neut # (Auto) (2.0 - 7.6 x10 3/uL) 5.33 Lymph # (Auto) (1.0 - 3.8 x10 3/uL) 0.29 L [place] # (Auto) (0.1 - 0.8 x10 3/uL) [...] Home with home O2 at 1320 RPT #:[id number] [facility] 2023-03-13 10:12:00 [facility] ([facility]) Nephrology Progress Note REPORT#:[id number] REPORT STATUS: Signed DATE:03/13/23 TIME: 1012 PATIENT: TEVIN NYE UNIT #: [id number] ROOM/BED: [facility]-1 : 52 AGE: 72 SEX: M ATTEND: Luci Beyer MD ADM AUTHOR: Glendy Paz MD * ALL edits or amendments must be made on the electronic/computer document * Subjective Comments: Doing well Objective General VS/I O: Vital Signs: Date Time Temp Pulse Resp B/P B/P Pulse O2 O2 Flow FiO2 Mean Ox Delivery Rate 03/13 642 98.1 69 20 126/60 0.0 95 Room [...] Lispro (HUMALOG) 0 AC HS SUBQ Ipratropium [place] (ATROVENT) 500 MCG RTQ2H PRN PRN INH [...] no rebound Extremities: pitting edema, no gangrene Neuro/EXPENSE ANALYST: alert, normal speech Results Findings/Data: Laboratory Tests [...] (Auto) (14.0 - 32.0 %) 4.6 L [place] % (Auto) (4.8 - 9.0 %) 7.2 Eos % (Auto) (0.3 - 3.7 %) 1.8 Baso % (Auto) (0.0 - 2.0 %) 0.0 Neut # (Auto) (2.0 - 7.6 x10 3/uL) 5.33 Lymph # (Auto) (1.0 - 3.8 x10 3/uL) 0.29 L [place] # (Auto) (0.1 - 0.8 x10 3/uL) [...] Report Impression - Status: SIGNED Entered: 03/12/2023 4285 IMPRESSION: Unremarkable swallowing study. The reader is [...] vena cava diameter is 2.1 cm. on 06/27/23 at 1717 at 1157 RPT #:[id number] [facility] 2023-03-13 09:50:00 [facility] Rehab Progress Note REPORT#:[id number] REPORT STATUS: Signed DATE:03/13/23 TIME: 0950 PATIENT: TEVIN NYE UNIT #: [id number] ROOM/BED: [place] [address] : [birth year] AGE: 73 SEX: M ATTEND: [...] Lispro (HUMALOG) 0 AC HS SUBQ Ipratropium [place] (ATROVENT) 500 MCG RTQ2H PRN PRN INH [...] (November 2022 on eliquis) who presented to [facility] with chest pain, dyspnea on exertion, and NSTEMI. Coronary angiogram was done and revealed severe multivessel coronary artery disease. Patient was then transferred to [facility] for CV surgery evaluation and need for CABG. Hx of Present Illness: PT STATED HE HAD CHEST CONGESTION PRIOR TO BEING Swallow Etiology ADMITTED INTO THE HOSPITAL. Functional Treatment Diagnosis: DYSPHAGIA Radiologist Present: Erlin Mayfield Referring Physician: Nicolasa Arenas PA-C Language Spoken: Barbadian Patient Consented to Treatment: Verbalized Subjective Evaluation: PT PLEASANT AND COOPERATIVE SITTING UPRIGHT IN CHAIR. RADIOLOGIST AND TIN ROOFER PRESENT. MBSS COMPLETED IN LATERAL VIEW. PT [...] Vocal Quality: Normal Viewing Planes: Lateral (Faces TIN ROOFER) Oral Motor Examination: Secretion Management: Within Functional [...] Yes Document ST Charges: MBS/Fluoro Eval Swa 15624 If this is the patient's last treatment, [...] SAFEST LEAST RESTRICTIVE DIET CONSISTENCY. . . Prison Goals TARGET DATE GOAL MET 1: PT WILL BE ABLE TO SAFELY SWALLOW A REGULAR DIET AND THIN LIQUIDS WITHOUT CLICNIAL S/S OF ASPIRATION/PENETRATION. Plan of care: Speech Therapy Planned Interventions: for Swallow Function Treatment Plan: NONE Discharge [...] motion normal, strength testing normal, no atrophy Neuro/EXPENSE ANALYST: alert, oriented X 3, normal speech, no [...] (Auto) (14.0 - 32.0 %) 4.6 L [place] % (Auto) (4.8 - 9.0 %) 7.2 Eos % (Auto) (0.3 - 3.7 %) 1.8 Baso % (Auto) (0.0 - 2.0 %) 0.0 Neut # (Auto) (2.0 - 7.6 x10 3/uL) 5.33 Lymph # (Auto) (1.0 - 3.8 x10 3/uL) 0.29 L [place] # (Auto) (0.1 - 0.8 x10 3/uL) [...] - XR SWLW FUNC W/C V 03/12 3516 Report Impression - Status: SIGNED Entered: 03/12/2023 8842 IMPRESSION: Unremarkable swallowing study. The reader is [...] you for allowing us to particapte in [facility] care of the pt. Will [...] precautions. Consultants: anesthesiology, cardiology, cardiovascular surgery, critical/ robotic technician, hospitalist Rehab attestation: Face to face exam completed. Treatment plan discussed with patient. Meets continued stay criteria. Agree with interdisciplinary treatment plan. at 1839 RPT #:[id number] [facility] 2023-03-13 07:21:00 [facility] Cardiology Progress Note REPORT#:[id number] REPORT STATUS: Signed DATE:03/13/23 TIME: 720 PATIENT: TEVIN NYE UNIT #: [id number] [place] [facility] [place] AGE: 72 SEX: M ATTEND: Luci Beyer MD ADM AUTHOR: Anuj Sylvester MD * ALL edits or amendments must be made on the electronic/computer document * Subjective Chief complaint: Anxious but Better Objective General VS/I O: 24 hour I O ending at 0700: 0706 0700 07/05 1900 Intake Total 1040 Output Total 2200 Balance -1160 Intake, Oral 1040 Number Voids 2 Output, Urine 2200 Patient 83.7 kg Weight Weight Standing scale Measurement Method Vital Signs: Date Time Temp Pulse Resp B/P B/P Pulse O2 O2 Flow FiO2 Mean Ox Delivery Rate 07/ 0642 98.1 69 20 126/60 0.0 95 [...] Lispro (HUMALOG) 0 AC HS SUBQ Ipratropium [place] (ATROVENT) 500 MCG RTQ2H PRN PRN INH [...] Plan Consultants: anesthesiology, cardiology, cardiovascular surgery, critical/ robotic technician, hospitalist Free Text DxA P Notes Free [...] on chronic renal failure at 0722 RPT #:[id number] [facility] 2023-03-13 05:16:00 [facility] Cardiothoracic Surgery Prog REPORT#:[id number] REPORT STATUS: Signed DATE:03/13/23 TIME: 05 PATIENT: TEVIN NYE UNIT #: [id number] ROOM/BED: [place] [address] : 51 AGE: 73 SEX: M ATTEND: [...] Ox 97 03/13 352 B/P 135/63 03/13 035 B/P Mean 0.0 03/13 352 O2 Delivery Nasal cannula 03/13 352 Temp 98.2 03/13 352 Pulse 63 03/13 035 Resp 13 03/13 352 O2 Flow Rate [...] moves all Musculoskeletal: full range of motion Neuro/EXPENSE ANALYST: alert, oriented X 3 Skin: dry, intact [...] Lispro (HUMALOG) 0 AC HS SUBQ Ipratropium [place] (ATROVENT) 500 MCG RTQ2H PRN PRN INH [...] (Auto) (14.0 - 32.0 %) 4.6 L [place] % (Auto) (4.8 - 9.0 %) 7.2 Eos % (Auto) (0.3 - 3.7 %) 1.8 Baso % (Auto) (0.0 - 2.0 %) 0.0 Neut # (Auto) (2.0 - 7.6 x10 3/uL) 5.33 Lymph # (Auto) (1.0 - 3.8 x10 3/uL) 0.29 L [place] # (Auto) (0.1 - 0.8 x10 3/uL) [...] Radiology data: Recent Impressions: RADIOLOGY - XR [facility] W/C V 03/12 2806 Report Impression - Status: SIGNED Entered: 03/12/2023 2056 IMPRESSION: Unremarkable swallowing study. The reader is [...] (November 2022 on eliquis) who presented to [facility] with chest pain, dyspnea on exertion, and NSTEMI. Coronary angiogram was done and revealed severe multivessel coronary artery disease. Patient was then transferred to [facility] for CV surgery evaluation and need for CABG. PLAN Admit patient to CVICU Initiate preop workup Incentive spirometer teaching Carotid ultrasound BLE vein mapping CT chest non-contrast UA to r/o UTI Echocardiogram Heparin and Nitro drip Consult pulmonary, cardiology, and robotic technician Coronary angiogram reviewed and patient will benefit [...] O2 Consultants: anesthesiology, cardiology, cardiovascular surgery, critical/ robotic technician, hospitalist at 1406 at 0634 RPT #:[id number] END OF REPORT [facility] 2023-03-12 15:55:00 [facility] ([facility]) Nephrology Progress Note REPORT#:[id number] REPORT STATUS: Signed DATE:03/12/23 TIME: 1555 PATIENT: TEVIN NYE UNIT #: [id number] ROOM/BED: [place] [address] : 51 AGE: 72 SEX: M ATTEND: [...] Lispro (HUMALOG) 0 AC HS SUBQ Ipratropium [place] (ATROVENT) 500 MCG RTQ2H PRN PRN INH [...] catheter, urine Extremities: pitting edema, no gangrene Neuro/EXPENSE ANALYST: alert, normal speech Results Findings/Data: Laboratory Tests [...] (Auto) (14.0 - 32.0 %) 5.8 L [place] % (Auto) (4.8 - 9.0 %) 9.3 H Eos % (Auto) (0.3 - 3.7 %) 1.7 Baso % (Auto) (0.0 - 2.0 %) 0.0 Neut # (Auto) (2.0 - 7.6 x10 3/uL) 4.78 Lymph # (Auto) (1.0 - 3.8 x10 3/uL) 0.34 L [place] # (Auto) (0.1 - 0.8 x10 3/uL) [...] silhouette. 2. Small bilateral pleural effusions. 3. Ifkb-kv-encbuvdv pulmonary edema versus infiltrates. Impression By: [email or web address] - David Espinal M.D. ULTRASOUND - DUP VEIN SCOTTY 03/12 0702 Report Impression - Status: SIGNED Entered: 03/12/2023 0719 IMPRESSION: No evidence of deep venous thrombosis in either lower extremity. Impression By: [email or web address] - You Moore M.D. RADIOLOGY - XR [facility] W/C V 03/12 1356 Report [...] 1717 Consultants: anesthesiology, cardiology, cardiovascular surgery, critical/ robotic technician, hospitalist at 1720 RPT #:[id number] [facility] 2023-03-12 14:19:00 [facility] ([facility]) Rehab Progress Note REPORT#:[id number] REPORT STATUS: Signed DATE:03/12/23 TIME: 1419 PATIENT: TEVIN NYE UNIT #: [id number] ROOM/BED: [address] : 51 AGE: 72 SEX: M ATTEND: Luci Beyer MD ADM AUTHOR: Froylan,Nicolasa PA-C * ALL edits or amendments must [...] Lispro (HUMALOG) 0 AC HS SUBQ Ipratropium [place] (ATROVENT) 500 MCG RTQ2H PRN PRN INH [...] Progress Functional progress: Viewing Planes: Lateral (Faces TIN ROOFER) Oral Motor Examination: Secretion Management: Within Functional [...] SELF-CARE ACTIVITIES. Document OT charges: SELF/HOME MGT/ADL [id number] Document Pain/Education: Yes Review OT Plan of [...] 3 Impaired Balance 5 Impaired Functional Mobil PENITENTIARY GOALS TARGET DATE GOAL MET 1: PT [...] motion normal, strength testing normal, no atrophy Neuro/EXPENSE ANALYST: alert, oriented X 3, normal speech, no [...] (Auto) (14.0 - 32.0 %) 5.8 L [place] % (Auto) (4.8 - 9.0 %) 9.3 H Eos % (Auto) (0.3 - 3.7 %) 1.7 Baso % (Auto) (0.0 - 2.0 %) 0.0 Neut # (Auto) (2.0 - 7.6 x10 3/uL) 4.78 Lymph # (Auto) (1.0 - 3.8 x10 3/uL) 0.34 L [place] # (Auto) (0.1 - 0.8 x10 3/uL) [...] silhouette. 2. Small bilateral pleural effusions. 3. Czkg-ho-mgvbfuqg pulmonary edema versus infiltrates. Impression By: [email or web address] [...] you for allowing us to particapte in [facility] care of the pt. Will [...] planning. Consultants: anesthesiology, cardiology, cardiovascular surgery, critical/ robotic technician, hospitalist Rehab attestation: Face to face exam completed. Treatment plan discussed with patient. at 1230 RPT #:[id number] [facility] 2023-03-12 12:58:00 [facility] Pulmonology Progress Note REPORT#:[id number] REPORT STATUS: Signed DATE:03/12/23 TIME: 1258 PATIENT: TEVIN NYE UNIT #: [id number] ROOM/BED: [place] [address] : 51 AGE: 72 SEX: M ATTEND: [...] 22 03/12 1144 O2 Delivery Nasal cannula 07/05 1001 O2 Flow Rate 2 03/12 1001 [...] Lispro (HUMALOG) 0 AC HS SUBQ Ipratropium [place] (ATROVENT) 500 MCG RTQ2H PRN PRN INH [...] no guarding Extremities: no clubbing, no cyanosis Neuro/EXPENSE ANALYST: alert, oriented X 3, no motor deficits [...] (Auto) (14.0 - 32.0 %) 5.8 L [place] % (Auto) (4.8 - 9.0 %) 9.3 H Eos % (Auto) (0.3 - 3.7 %) 1.7 Baso % (Auto) (0.0 - 2.0 %) 0.0 Neut # (Auto) (2.0 - 7.6 x10 3/uL) 4.78 Lymph # (Auto) (1.0 - 3.8 x10 3/uL) 0.34 L [place] # (Auto) (0.1 - 0.8 x10 3/uL) [...] 640 Report Impression - Status: SIGNED Entered: 03/12/2023732 IMPRESSION: 1. Mild enlarged cardiac silhouette. 2. Small bilateral pleural effusions. 3. Evkm-cu-cueqwfgt pulmonary edema versus infiltrates. Impression By: [email or web address] [...] CXR improving - PT/OT at 1303 RPT #:[id number] [facility] 2023-03-12 06:55:00 [facility] ([facility] Cardiology Progress Note REPORT#:[id number] REPORT STATUS: Signed DATE:03/12/23 TIME: 06 PATIENT: TEVIN NYE UNIT #: [id number] ROOM/BED: [place] [address] : 51 AGE: 72 SEX: M ATTEND: [...] Lispro (HUMALOG) 0 AC HS SUBQ Ipratropium [place] (ATROVENT) 500 MCG RTQ2H PRN PRN INH [...] (Auto) (14.0 - 32.0 %) 5.8 L [place] % (Auto) (4.8 - 9.0 %) 9.3 H Eos % (Auto) (0.3 - 3.7 %) 1.7 Baso % (Auto) (0.0 - 2.0 %) 0.0 Neut # (Auto) (2.0 - 7.6 x10 3/uL) 4.78 Lymph # (Auto) (1.0 - 3.8 x10 3/uL) 0.34 L [place] # (Auto) (0.1 - 0.8 x10 3/uL) [...] Plan Consultants: anesthesiology, cardiology, cardiovascular surgery, critical/ robotic technician, hospitalist Free Text DxA P Notes Free [...] on chronic renal failure at 0657 RPT #:[id number] [facility] 2023-03-12 05:03:00 [facility] Cardiothoracic Surgery Prog REPORT#:[id number] REPORT STATUS: Signed DATE:03/12/23 TIME: 0503 PATIENT: TEVIN NYE UNIT #: [id number] ROOM/BED: [place] [address] : 51 AGE: 72 SEX: M ATTEND: [...] Result Date Time Pulse Ox 98 03/12 0403 B/P 148/63 03/12 0403 B/P Mean 0.0 03/12 0403 O2 Delivery Nasal cannula 03/12 0403 Temp 98.2 03/12 0403 Pulse 63 03/12 [...] moves all Musculoskeletal: full range of motion Neuro/EXPENSE ANALYST: alert, oriented X 3 Skin: dry, intact Psychiatry: normal affect, normal mood Diagnosis, Assessment Plan Hospital course to date: This is a pleasant 72 year old male with past medical history of hypertension, dyslipidemia, DM-2 (on insulin), former smoker (quit 2018), BPH, prostate CA s/p radiation, COPD (uses inhaler at home, no home oxygen), and PE (November 2022 on eliquis) who presented to [facility] with chest pain, dyspnea on exertion, and NSTEMI. Coronary angiogram was done and revealed severe multivessel coronary artery disease. Patient was then transferred to [facility] for CV surgery evaluation and need for CABG. PLAN Admit patient to CVICU Initiate preop workup Incentive spirometer teaching Carotid ultrasound BLE vein mapping CT chest non-contrast UA to r/o UTI Echocardiogram Heparin and Nitro drip Consult pulmonary, cardiology, and robotic technician Coronary angiogram reviewed and patient will benefit from surgical revascularizaton. The surgery, risks involved, STS score, benefits, complications and alternatives were explained to the patient and his brother. He acknowledged understanding and is willing to proceed. We will tentatively schedule him for surgery tomorrow morning. Further recommendations to follow. 03/04/23 CABG x 4 (MCCORMICK-LAD,SVG-Leana, SVG-OM, SVG-PDA) ALAA GENAROH (LGSV) Posterior pericardiotomy 03/05/23 POD 1 Patient alert, awake, and oriented Labs and CXR reviewed On bipap / 40%, wean off as tolerated Trend abgs [...] nurse. Consultants: anesthesiology, cardiology, cardiovascular surgery, critical/ robotic technician, hospitalist at 1546 at 1841 RPT #:[id number] [facility] 2023-03-11 16:37:00 [id number] [place] [address] PATIENT NAME: TEVIN NYE ADMIT DATE: 03/03/23 ACCOUNT NO: [id number] [place] [facility] [place]GE: 72 REPORT TYPE: eECHOCARDIOGRAM REPORT SEX: M ADMITTING PHYSICIAN:Luci Beyer MD ATTENDING PHYSICIAN:Luci Beyer MD *[place] [address] Limited Transthoracic Echocardiogram Patient: Tevin Nye Study Date: 03/11/2023 BP: 134 / 62 Location: [facility] URN: [id number] : 1950 Age: 72 Height: 67 in / 170.2 cm Gender: M Weight: 188.6 lb / 85.7 kg BMI/BSA: 29.6 kg/m 2 / 1.97 m 2 *Ordering Physician: * Evon Andrew *Interpreting Physician: * Anuj Sylvester MD *Vice President Corporate Communications: * GURPREET Adams Indications: PACING WIRES DC'D. R/O EFFUSION. Study data: Transthoracic echocardiogram, limited study. Procedure: Transthoracic echocardiography was performed. Images were obtained using a Optify cardiac ultrasound machine. Image quality was good. [...] 16:37 at 1637 PATIENT NAME: TEVIN NYE [facility] 2023-03-11 11:09:00 [facility] Cardiology Progress Note REPORT#:[id number] REPORT STATUS: Signed DATE:03/11/23 TIME: 1109 PATIENT: TEVIN NYE UNIT #: [id number] ROOM/BED: [place] [address] : 51 AGE: 72 SEX: M ATTEND: [...] 70 14 126/66 86.0 93 Room air / 1300 66 26 142/68 98 96 07/ 1200 65 24 148/70 100 96 03/10 [...] Vial) 20 MG DAILY IV (DC) Ipratropium [place] (ATROVENT) 500 MCG RTQ2H PRN PRN INH [...] refill, no edema Results Findings/Data: Laboratory Tests 03/11 2039 1226 Chemistry Sodium (134 - 147 [...] (Auto) (14.0 - 32.0 %) 5.5 L [place] % (Auto) (4.8 - 9.0 %) 9.6 H Eos % (Auto) (0.3 - 3.7 %) 0.3 Baso % (Auto) (0.0 - 2.0 %) 0.4 Neut # (Auto) (2.0 - 7.6 x10 3/uL) 6.31 Lymph # (Auto) (1.0 - 3.8 x10 3/uL) 0.42 L [place] # (Auto) (0.1 - 0.8 x10 3/uL) [...] Report Impression - Status: SIGNED Entered: 03/11/2023 7945 IMPRESSION: 1. Moderate pulmonary edema versus infiltrates, pneumonia. 2. Small bilateral pleural effusions. 3. Mild enlarged cardiac silhouette. Impression By: [email or web address] - David Espinal M.D. Diagnosis, Assessment Plan Consultants: anesthesiology, cardiology, cardiovascular surgery, critical/ robotic technician, hospitalist Free Text DxA P Notes Free [...] on chronic renal failure at 1110 RPT #:[id number] [facility] 2023-03-11 11:00:00 [facility]) Pulmonology Progress Note REPORT#:[id number] REPORT STATUS: Signed DATE:03/11/23 TIME: 1100 PATIENT: TEVIN NYE UNIT #: [id number] ROOM/BED: [place] [address] : 51 AGE: 72 SEX: M ATTEND: Luci Beyer MD ADM AUTHOR: Jonh Velasquez MD * ALL edits or amendments must be made on the electronic/computer document * Subjective Chief complaint: Chest pain Comments: More short of breath today Concerned about Prozac ROS: no nausea/vomitting or chest pain Objective General VS/I O: Last Documented: Result Date Time Pulse Ox 96 03/11 08 O2 Delivery Room air 03/11 844 B/P [...] no guarding Extremities: no clubbing, no cyanosis Neuro/EXPENSE ANALYST: alert, oriented X 3, no motor deficits [...] (Auto) (14.0 - 32.0 %) 5.5 L [place] % (Auto) (4.8 - 9.0 %) 9.6 H Eos % (Auto) (0.3 - 3.7 %) 0.3 Baso % (Auto) (0.0 - 2.0 %) 0.4 Neut # (Auto) (2.0 - 7.6 x10 3/uL) 6.31 Lymph # (Auto) (1.0 - 3.8 x10 3/uL) 0.42 L [place] # (Auto) (0.1 - 0.8 x10 3/uL) [...] - PT/OT Overall improving at 1101 RPT #:[id number] [facility] 2023-03-11 10:16:00 [facility] Nephrology Progress Note REPORT#:[id number] REPORT STATUS: Signed DATE:03/11/23 TIME: 1016 PATIENT: TEVIN NYE UNIT #: [id number] ROOM/BED: [place] [address] : 51 AGE: 72 SEX: M ATTEND: [...] Vial) 20 MG DAILY IV (DC) Ipratropium [place] (ATROVENT) 500 MCG RTQ2H PRN PRN INH [...] catheter, urine Extremities: pitting edema, no gangrene Neuro/EXPENSE ANALYST: alert, normal speech Results Findings/Data: Laboratory Tests 03/11 1226 Chemistry Sodium (134 - 147 mEq/L) [...] (Auto) (14.0 - 32.0 %) 5.5 L [place] % (Auto) (4.8 - 9.0 %) 9.6 H Eos % (Auto) (0.3 - 3.7 %) 0.3 Baso % (Auto) (0.0 - 2.0 %) 0.4 Neut # (Auto) (2.0 - 7.6 x10 3/uL) 6.31 Lymph # (Auto) (1.0 - 3.8 x10 3/uL) 0.42 L [place] # (Auto) (0.1 - 0.8 x10 3/uL) [...] Report Impression - Status: SIGNED Entered: 03/11/2023 5433 IMPRESSION: 1. Moderate pulmonary edema versus infiltrates, [...] cm. on 03/04/23 at 1717 at 1234 [facility] #:[id number] [facility] 2023-03-11 05:42:00 [facility] Cardiothoracic Surgery Prog REPORT#:[id number] REPORT STATUS: Signed DATE:03/11/23 TIME: 541 PATIENT: TEVIN NYE UNIT #: [id number] ROOM/BED: [place] [address] : 51 AGE: 72 SEX: M ATTEND: [...] moves all Musculoskeletal: full range of motion Neuro/EXPENSE ANALYST: alert, oriented X 3 Skin: dry, intact Psychiatry: normal affect, normal mood Diagnosis, Assessment Plan Hospital course to date: This is a pleasant 72 year old male with past medical history of hypertension, dyslipidemia, DM-2 (on insulin), former smoker (quit 2018), BPH, prostate CA s/p radiation, COPD (uses inhaler at home, no home oxygen), and PE (November 2022 on eliquis) who presented to [facility] with chest pain, dyspnea on exertion, and NSTEMI. Coronary angiogram was done and revealed severe multivessel coronary artery disease. Patient was then transferred to [facility] for CV surgery evaluation and need for CABG. PLAN Admit patient to CVICU Initiate preop workup Incentive spirometer teaching Carotid ultrasound BLE vein mapping CT chest non-contrast UA to r/o UTI Echocardiogram Heparin and Nitro drip Consult pulmonary, cardiology, and robotic technician Coronary angiogram reviewed and patient will benefit [...] soon Consultants: anesthesiology, cardiology, cardiovascular surgery, critical/ robotic technician, hospitalist at 1133 at 1837 RPT #:[id number] [facility] 2023-03-10 11:50:00 [facility] ([facility] Critical Care Progress Note REPORT#:[id number] REPORT STATUS: Signed DATE:03/10/23 TIME: 1150 PATIENT: TEVIN NYE UNIT #: [id number] ROOM/BED: [place] [address] : 51 AGE: 72 SEX: M ATTEND: Luci Beyer MD ADM AUTHOR: Dina Mccain MD * ALL edits or amendments must be made on the electronic/computer document * Subjective Chief complaint: Chest pain/Unstable angina Wheezing Dyspnea Multivessel coronary artery disease Non-ST elevation MT Status post CABG x5 and ILAA Elective [...] (November 2022 on eliquis) who presented to [facility] with chest pain, dyspnea on exertion, and NSTEMI. Coronary angiogram was done and revealed severe multivessel coronary artery disease. Patient was then transferred to [facility] for CV surgery evaluation and need [...] B/P Mean 81 / 1100 Pulse 66 / 1100 Resp 33 03/10 1100 Temp 36.4 03/10 0800 O2 Delivery Room air 03/10 0400 O2 Flow Rate 2 / 0356 FiO2 21 03/09 1906 24 hour I O ending at 0700: 03/10 0700 03/09 1900 Intake Total 530.00 1700 Output Total [...] (LOPRESSOR) 12.5 MG Q12HR PO (DC) Ipratropium [place] (ATROVENT) 500 MCG RTQ2H PRN PRN INH [...] no cyanosis, no edema Musculoskeletal normal inspection Neuro/EXPENSE ANALYST: alert, oriented X 3, CNII-XII intact, normal [...] Temperature (F) 97.2 O2 Delivery Device [facility] Laboratory Tests 03/1031 5 0315 1939 Chemistry Sodium (134 - 147 [...] (Auto) (14.0 - 32.0 %) 6.5 L [place] % (Auto) (4.8 - 9.0 %) 9.5 H Eos % (Auto) (0.3 - 3.7 %) 0.4 Baso % (Auto) (0.0 - 2.0 %) 0.2 Neut # (Auto) (2.0 - 7.6 x10 3/uL) 4.33 Lymph # (Auto) (1.0 - 3.8 x10 3/uL) 0.34 L [place] # (Auto) (0.1 - 0.8 x10 3/uL) [...] 0514 Report Impression - Status: SIGNED Entered: 03/10/202351 IMPRESSION: 1. Small to moderate bilateral pleural effusions. 2. Moderate pulmonary edema versus infiltrates, pneumonia. 3. Cvvo-rh-mjnsskfyba enlarged cardiac silhouette. Impression By: [email or web address] - David Espinal M.D. Diagnosis, Assessment Plan Free text A P: Problem List: Chest pain Wheezing Dyspnea Multivessel coronary artery disease Non-ST elevation MT Status post CABG x5 and ILAA Elective [...] (November 2022 on eliquis) who presented to [facility] with chest pain, dyspnea on exertion, and NSTEMI. Coronary angiogram was done and revealed severe multivessel coronary artery disease. Patient was then transferred to [facility] for CV surgery evaluation and need [...] for DVT prophylaxis Noé Madrid MD FACP [facility] 03/04/2023 6.32 PM 03/07/2023 Neurologically patient [...] (November 2022 on eliquis) who presented to [facility] with chest pain, dyspnea on exertion, and NSTEMI. Coronary angiogram was done and revealed severe multivessel coronary artery disease. Patient was then transferred to [facility] for CV surgery evaluation and need [...] SCDs for DVT prophylaxis Noé Madrid MD [facility] 03/08/2023 9.42 AM 03/09/2023 Patient seen and [...] (November 2022 on eliquis) who presented to [facility] with chest pain, dyspnea on exertion, and NSTEMI. Coronary angiogram was done and revealed severe multivessel coronary artery disease. Patient was then transferred to [facility] for CV surgery evaluation and need [...] SCDs for DVT prophylaxis Noé Madrid [facility] 03/09/2023 12.13 PM 03/10/2023 Neurologically patient [...] procedures Consultants: anesthesiology, cardiology, cardiovascular surgery, critical/ robotic technician, hospitalist at 1159 RPT #:[id number] [facility] 2023-03-10 10:13:00 [facility] Nephrology Progress Note REPORT#:[id number] REPORT STATUS: Signed DATE:03/10/23 TIME: 1013 PATIENT: TEVIN NYE UNIT #: [id number] ROOM/BED: [address] : [birth year] AGE: 72 SEX: M [...] 98.1 67 34 164/70 102 94 07/02 2029 161/77 110 07/02 1999 97.3 Nasal 3 [...] (LOPRESSOR) 12.5 MG Q12HR PO (DC) Ipratropium [place] (ATROVENT) 500 MCG RTQ2H PRN PRN INH [...] catheter, urine Extremities: pitting edema, no gangrene Neuro/EXPENSE ANALYST: alert, normal speech Results Findings/Data: Laboratory Tests [...] L Temperature (F) 97.2 O2 Delivery Device [facility] Laboratory Tests 03/10 03/10 03/10 03/09 0831 [...] (Auto) (14.0 - 32.0 %) 6.5 L [place] % (Auto) (4.8 - 9.0 %) 9.5 H Eos % (Auto) (0.3 - 3.7 %) 0.4 Baso % (Auto) (0.0 - 2.0 %) 0.2 Neut # (Auto) (2.0 - 7.6 x10 3/uL) 4.33 Lymph # (Auto) (1.0 - 3.8 x10 3/uL) 0.34 L [place] # (Auto) (0.1 - 0.8 x10 3/uL) [...] Report Impression - Status: SIGNED Entered: 03/10/2023 0726 IMPRESSION: 1. Small to moderate bilateral pleural effusions. 2. Moderate pulmonary edema versus infiltrates, pneumonia. 3. Ooyy-zj-cfreovdspv enlarged cardiac silhouette. Impression By: [email or web address] - [...] on 03/04/23 at 1717 at 1233 RPT #:[id number] [facility] 2023-03-10 09:28:00 [facility]) Pulmonology Progress Note REPORT#:[id number] REPORT STATUS: Signed DATE:03/10/23 TIME: 927 PATIENT: TEVIN NYE UNIT #: [id number] ROOM/BED: [place] [address] : 51 AGE: 72 SEX: M ATTEND: [...] no guarding Extremities: no clubbing, no cyanosis Neuro/EXPENSE ANALYST: alert, oriented X 3, no motor deficits [...] L Temperature (F) 97.2 O2 Delivery Device [facility] Laboratory Tests 03/09 03/09 03/09 03/10 03/10 [...] (Auto) (14.0 - 32.0 %) 6.5 L [place] % (Auto) (4.8 - 9.0 %) 9.5 H Eos % (Auto) (0.3 - 3.7 %) 0.4 Baso % (Auto) (0.0 - 2.0 %) 0.2 Neut # (Auto) (2.0 - 7.6 x10 3/uL) 4.33 Lymph # (Auto) (1.0 - 3.8 x10 3/uL) 0.34 L [place] # (Auto) (0.1 - 0.8 x10 3/uL) [...] - PT/OT Overall improving at 0928 RPT #:[id number] [facility] 2023-03-10 09:00:00 [facility] ([facility] Rehab Progress Note REPORT#:[id number] REPORT STATUS: Signed DATE:03/10/23 TIME: 09 PATIENT: TEVIN NYE UNIT #: [id number] ROOM/BED: [place] [address] : 51 AGE: 72 SEX: M ATTEND: [...] 0433 97.5 63 23 155/56 89 97 07/ 0430 97.3 64 24 166/60 98 98 07/03 0401 97.3 65 11 162/63 97 96 07/ 0400 98.0 Room air 07/03 0400 97.3 [...] (LOPRESSOR) 12.5 MG Q12HR PO (DC) Ipratropium [place] (ATROVENT) 500 MCG RTQ2H PRN PRN INH [...] motion normal, strength testing normal, no atrophy Neuro/EXPENSE ANALYST: alert, oriented X 3, normal speech, no motor deficits, no sensory deficits Results Findings/Data: Laboratory Tests: 03/10 03/10 03/10 03/09 0831 0316 4454 5743 Blood Gas Puncture Site Art Line O2 [...] (Auto) (14.0 - 32.0 %) 6.5 L [place] % (Auto) (4.8 - 9.0 %) 9.5 H Eos % (Auto) (0.3 - 3.7 %) 0.4 Baso % (Auto) (0.0 - 2.0 %) 0.2 Neut # (Auto) (2.0 - 7.6 x10 3/uL) 4.33 Lymph # (Auto) (1.0 - 3.8 x10 3/uL) 0.34 L [place] # (Auto) (0.1 - 0.8 x10 3/uL) [...] Report Impression - Status: SIGNED Entered: 03/10/2023 6847 IMPRESSION: 1. Small to moderate bilateral pleural effusions. 2. Moderate pulmonary edema versus infiltrates, pneumonia. 3. Ymxt-at-irsedwolrj enlarged cardiac silhouette. Impression By: [email or web address] - [...] you for allowing us to particapte in [facility] care of the pt. Will continue to follow. 03/10:PT /OT to follow. Making progress. He is on 1 liter. Giving diuretics. Pt wanting to DC home with HH now. Consultants: anesthesiology, cardiology, cardiovascular surgery, critical/ robotic technician, hospitalist Rehab attestation: Face to face exam completed. Treatment plan discussed with patient. Meets continued stay criteria. Agree with interdisciplinary treatment plan. at 1446 RPT #:[id number] [facility] 2023-03-10 06:54:00 [facility] ([facility] Cardiology Progress Note REPORT#:[id number] REPORT STATUS: Signed DATE:03/10/23 TIME: 0654 PATIENT: TEVIN NYE UNIT #: [id number] ROOM/BED: [place] [address] : 51 AGE: 72 SEX: M ATTEND: [...] 97.9 67 29 158/57 89 93 03/09 07 169/73 105 03/09 0700 62 23 166/58 [...] Tartrate (LOPRESSOR) 12.5 MG Q12HR PO Ipratropium [place] (ATROVENT) 500 MCG RTQ2H PRN PRN INH [...] L Temperature (F) 97.2 O2 Delivery Device [facility] Laboratory Tests 03/105 0315 1939 1540 1028 Chemistry Sodium (134 [...] (Auto) (14.0 - 32.0 %) 6.5 L [place] % (Auto) (4.8 - 9.0 %) 9.5 H Eos % (Auto) (0.3 - 3.7 %) 0.4 Baso % (Auto) (0.0 - 2.0 %) 0.2 Neut # (Auto) (2.0 - 7.6 x10 3/uL) 4.33 Lymph # (Auto) (1.0 - 3.8 x10 3/uL) 0.34 L [place] # (Auto) (0.1 - 0.8 x10 3/uL) [...] 0802 Report Impression - Status: SIGNED Entered: 03/09/2023817 IMPRESSION: No significant change in the lungs. Impression By: Herlinda - Ezekiel Esteves M.D. Diagnosis, Assessment Plan Consultants: anesthesiology, cardiology, cardiovascular surgery, critical/ robotic technician, hospitalist Free Text DxA P Notes Free [...] on chronic renal failure at 0656 RPT #:[id number] [facility] 2023-03-10 05:54:00 [facility] ([facility]) Cardiothoracic Surgery Prog REPORT#:[id number] REPORT STATUS: Signed DATE:03/10/23 TIME: 05 PATIENT: TEVIN NYE UNIT #: [id number] ROOM/BED: [place] [address] : 51 AGE: 72 SEX: M ATTEND: Luci Beyer MD ADM AUTHOR: Evon Andrew Physic * ALL edits or amendments must be made on the electronic/computer document * General Post-op: day 6 Status post: 03/04/23 CABG x 4 (MCCORMICK-LAD,SVG-Leana, SVG-OM, SVG-PDA) ALAA GENAROH (LGSV) Posterior pericardiotomy Subjective Chief complaint: chest [...] moves all Musculoskeletal: full range of motion Neuro/EXPENSE ANALYST: alert, oriented X 3 Skin: dry, intact Psychiatry: normal affect, normal mood Diagnosis, Assessment Plan Hospital course to date: This is a pleasant 72 year old male with past medical history of hypertension, dyslipidemia, DM-2 (on insulin), former smoker (quit 2018), BPH, prostate CA s/p radiation, COPD (uses inhaler at home, no home oxygen), and PE (November 2022 on eliquis) who presented to [facility] with chest pain, dyspnea on exertion, and NSTEMI. Coronary angiogram was done and revealed severe multivessel coronary artery disease. Patient was then transferred to [facility] for CV surgery evaluation and need for CABG. PLAN Admit patient to CVICU Initiate preop workup Incentive spirometer teaching Carotid ultrasound BLE vein mapping CT chest non-contrast UA to r/o UTI Echocardiogram Heparin and Nitro drip Consult pulmonary, cardiology, and robotic technician Coronary angiogram reviewed and patient will benefit from surgical revascularizaton. The surgery, risks involved, STS score, benefits, complications and alternatives were explained to the patient and his brother. He acknowledged understanding and is willing to proceed. We will tentatively schedule him for surgery tomorrow morning. Further recommendations to follow. 03/04/23 CABG x 4 (MCCORMICK-LAD,SVG-Leaan, SVG-OM, SVG-PDA) ZANE PEREA (LGSV) Posterior pericardiotomy [...] line Consultants: anesthesiology, cardiology, cardiovascular surgery, critical/ robotic technician, hospitalist at 1643 at 6059 RPT #:[id number] END OF REPORT [facility] 2023-03-09 11:44:00 [facility] ([facility]) Cardiology Progress Note REPORT#:[id number] REPORT STATUS: Signed DATE:03/09/23 TIME: 1144 PATIENT: TEVIN NYE UNIT #: [id number] ROOM/BED: [place] [address] : 51 AGE: 72 SEX: M ATTEND: Luci Beyer MD ADM AUTHOR: Willie Lorenzana MD * ALL edits or amendments must be made on the electronic/computer document * Subjective Chief complaint: Better Objective General VS/I O: 24 hour I O ending at 0700: 07/ 0700 07/ 1900 Intake Total 400 1471.00 Output Total 800 1645 Balance -400 -174.00 Intake, IV 31.00 Intake, Oral 400 720 Intake, Oral 720 Supplement Number 1 Bowel Movements Output, Urine 800 1645 Patient 89.8 kg Weight Weight Standing scale Measurement Method Vital Signs: Date Time Temp Pulse Resp B/P B/P Pulse O2 O2 Flow FiO2 Mean Ox Delivery Rate 07/ 1000 135/54 80 07/02 1000 36.3 61 [...] Tartrate (LOPRESSOR) 12.5 MG Q12HR PO Ipratropium [place] (ATROVENT) 500 MCG RTQ2H PRN PRN INH [...] L Temperature (F) 98.3 O2 Delivery Device [facility] Laboratory Tests 03/09 03/09 03/09 03/09 03/09 [...] (Auto) (14.0 - 32.0 %) 4.6 L [place] % (Auto) (4.8 - 9.0 %) 9.1 H Eos % (Auto) (0.3 - 3.7 %) 0.0 L Baso % (Auto) (0.0 - 2.0 %) 0.0 Neut # (Auto) (2.0 - 7.6 x10 3/uL) 4.81 Lymph # (Auto) (1.0 - 3.8 x10 3/uL) 0.26 L [place] # (Auto) (0.1 - 0.8 x10 3/uL) [...] an d icu nurse at 1146 RPT #:[id number] END OF REPORT [facility] 2023-03-09 10:30:00 [facility] ([facility]) Pulmonology Progress Note REPORT#:[id number] REPORT STATUS: Signed DATE:03/09/23 TIME: 1030 PATIENT: TEVIN NYE UNIT #: [id number] ROOM/BED: [place] [address] : 51 AGE: 72 SEX: M ATTEND: Luci Beeyr MD ADM AUTHOR: Jonh Velasquez MD * [...] 1000 Temp 97.3 03/09 1000 Pulse 61 03/09 1000 Resp 25 03/09 1000 FiO2 21 03/09 0730 O2 Delivery Room air 03/09 0730 O2 Flow Rate 2 03/09 0314 24 hour I O ending at 0700: 07/01 1900 02 0700 Intake Total 1471.00 400 Output Total [...] no guarding Extremities: no clubbing, no cyanosis Neuro/EXPENSE ANALYST: alert, oriented X 3, no motor deficits Skin: dry, normal color Psychiatry: normal affect, no hallucinations Results Findings/Data: Laboratory Tests 03/08/23 1818: [Embedded Image Not Available] 03/09/23 0156: [Embedded Image Not Available] Laboratory Tests 03/09 0202 Blood Gas Puncture [...] L Temperature (F) 98.3 O2 Delivery Device [facility] Laboratory Tests 03/08 03/08 03/08 03/08 03/08 [...] (Auto) (14.0 - 32.0 %) 4.6 L [place] % (Auto) (4.8 - 9.0 %) 9.1 H Eos % (Auto) (0.3 - 3.7 %) 0.0 L Baso % (Auto) (0.0 - 2.0 %) 0.0 Neut # (Auto) (2.0 - 7.6 x10 3/uL) 4.81 Lymph # (Auto) (1.0 - 3.8 x10 3/uL) 0.26 L [place] # (Auto) (0.1 - 0.8 x10 3/uL) [...] pulm edema-stable - PT/OT at 1031 RPT #:[id number] [facility] 2023-03-09 10:14:00 [facility] ([facility]) Nephrology Progress Note REPORT#:[id number] REPORT STATUS: Signed DATE:03/09/23 TIME: 1014 PATIENT: TEVIN NYE UNIT #: [id number] ROOM/BED: [place] [address] : 51 AGE: 72 SEX: M ATTEND: [...] 109/58 79 99 07/01 1145 155/60 89 07/ 1145 99.1 61 25 133/65 89 100 07/ 1130 150/58 84 07/ 1130 99.0 58 27 132/65 92 99 07/01 1115 140/54 81 07/ 1115 99.0 60 23 125/58 86 97 07/ 1101 143/62 87 07/ 1101 99.0 59 8 159/73 109 100 07/ 1059 96 High flow 4 nasal cannula 07 1046 150/57 84 07/ 1046 99.0 60 21 147/70 100 99 07/01 1030 135/55 78 07/01 1030 99.0 59 26 119/59 84 98 07/01 1015 137/54 76 07/01 1015 99.0 54 20 122/58 84 99 24 hour I O ending at 0700: 07/02 0700 07 1900 Intake Total 400 1471.00 [...] Tartrate (LOPRESSOR) 12.5 MG Q12HR PO Ipratropium [place] (ATROVENT) 500 MCG RTQ2H PRN PRN INH [...] catheter, urine Extremities: pitting edema, no gangrene Neuro/EXPENSE ANALYST: alert, normal speech Results Findings/Data: Laboratory Tests [...] L Temperature (F) 98.3 O2 Delivery Device [facility] Laboratory Tests 03/09 03/09 03/09 03/09 03/09 [...] (Auto) (14.0 - 32.0 %) 4.6 L [place] % (Auto) (4.8 - 9.0 %) 9.1 H Eos % (Auto) (0.3 - 3.7 %) 0.0 L Baso % (Auto) (0.0 - 2.0 %) 0.0 Neut # (Auto) (2.0 - 7.6 x10 3/uL) 4.81 Lymph # (Auto) (1.0 - 3.8 x10 3/uL) 0.26 L [place] # (Auto) (0.1 - 0.8 x10 3/uL) [...] 0802 Report Impression - Status: SIGNED Entered: 03/09/2023817 [...] on 03/04/23 at 1717 at 1230 RPT #:[id number] [facility] 2023-03-09 09:40:00 [facility] Cardiothoracic Surgery Prog REPORT#:[id number] REPORT STATUS: Signed DATE:03/09/23 TIME: 939 PATIENT: TEVIN NYE UNIT #: [id number] ROOM/BED: [place] [address] : 51 AGE: 72 SEX: M ATTEND: [...] Pulse 62 03/09 0900 Resp 18 03/09 09 FiO2 21 03/09 0730 O2 Delivery Room [...] moves all Musculoskeletal: full range of motion Neuro/EXPENSE ANALYST: alert, oriented X 3 Skin: dry, intact [...] Tartrate (LOPRESSOR) 12.5 MG Q12HR PO Ipratropium [place] (ATROVENT) 500 MCG RTQ2H PRN PRN INH [...] L Temperature (F) 98.3 O2 Delivery Device [facility] Laboratory Tests 03/09 03/09 03/09 03/09 03/09 [...] (Auto) (14.0 - 32.0 %) 4.6 L [place] % (Auto) (4.8 - 9.0 %) 9.1 H Eos % (Auto) (0.3 - 3.7 %) 0.0 L Baso % (Auto) (0.0 - 2.0 %) 0.0 Neut # (Auto) (2.0 - 7.6 x10 3/uL) 4.81 Lymph # (Auto) (1.0 - 3.8 x10 3/uL) 0.26 L [place] # (Auto) (0.1 - 0.8 x10 3/uL) [...] (November 2022 on eliquis) who presented to [facility] with chest pain, dyspnea on exertion, and NSTEMI. Coronary angiogram was done and revealed severe multivessel coronary artery disease. Patient was then transferred to [facility] for CV surgery evaluation and need for CABG. PLAN Admit patient to CVICU Initiate preop workup Incentive spirometer teaching Carotid ultrasound BLE vein mapping CT chest non-contrast UA to r/o UTI Echocardiogram Heparin and Nitro drip Consult pulmonary, cardiology, and robotic technician Coronary angiogram reviewed and patient will benefit [...] CVICU Consultants: anesthesiology, cardiology, cardiovascular surgery, critical/ robotic technician, hospitalist at 4064 RPT #:[id number] [facility] 2023-03-09 08:59:00 [facility] ([facility]) Critical Care Progress Note REPORT#:[id number] REPORT STATUS: Signed DATE:03/09/23 TIME: 858 PATIENT: TEVIN NYE UNIT #: [id number] ROOM/BED: [place] [address] : 51 AGE: 72 SEX: M ATTEND: Luci Beyer MD ADM AUTHOR: Noé Madrid MD * ALL edits or amendments must be made on the electronic/computer document * Subjective Chief complaint: Chest pain/Unstable angina Wheezing Dyspnea Multivessel coronary artery disease Non-ST elevation MT Status post CABG x5 and ILAA Elective [...] (November 2022 on eliquis) who presented to [facility] with chest pain, dyspnea on exertion, and NSTEMI. Coronary angiogram was done and revealed severe multivessel coronary artery disease. Patient was then transferred to [facility] for CV surgery evaluation and need [...] Tartrate (LOPRESSOR) 12.5 MG Q12HR PO Ipratropium [place] (ATROVENT) 500 MCG RTQ2H PRN PRN INH [...] no cyanosis, no edema Musculoskeletal normal inspection Neuro/EXPENSE ANALYST: alert, oriented X 3, CNII-XII intact, normal speech, reflexes equal bilat, no motor deficits, no sensory deficits Skin: dry, normal color, normal temperature, no rash Psychiatry: normal affect, normal judgment/insight, normal mood, not homicidal, not suicidal, no hallucinations Results Findings/data: Laboratory Tests 03/09 020 Blood Gas Puncture Site Art Line [...] L Temperature (F) 98.3 O2 Delivery Device [facility] Laboratory Tests 03/09 03/09 03/09 03/09 03/09 [...] (Auto) (14.0 - 32.0 %) 4.6 L [place] % (Auto) (4.8 - 9.0 %) 9.1 H Eos % (Auto) (0.3 - 3.7 %) 0.0 L Baso % (Auto) (0.0 - 2.0 %) 0.0 Neut # (Auto) (2.0 - 7.6 x10 3/uL) 4.81 Lymph # (Auto) (1.0 - 3.8 x10 3/uL) 0.26 L [place] # (Auto) (0.1 - 0.8 x10 3/uL) [...] Dyspnea Multivessel coronary artery disease Non-ST elevation MT Status post CABG x5 and ILAA Elective [...] (November 2022 on eliquis) who presented to [facility] with chest pain, dyspnea on exertion, and NSTEMI. Coronary angiogram was done and revealed severe multivessel coronary artery disease. Patient was then transferred to [facility] for CV surgery evaluation and need [...] SCDs for DVT prophylaxis Noé Madrid MD [facility] 03/04/2023 6.32 PM 03/07/2023 Neurologically patient is [...] (November 2022 on eliquis) who presented to [facility] with chest pain, dyspnea on exertion, and NSTEMI. Coronary angiogram was done and revealed severe multivessel coronary artery disease. Patient was then transferred to [facility] for CV surgery evaluation and need [...] SCDs for DVT prophylaxis Noé Madrid MD [facility] 03/08/2023 9.42 AM 03/09/2023 Patient seen and [...] (November 2022 on eliquis) who presented to [facility] with chest pain, dyspnea on exertion, and NSTEMI. Coronary angiogram was done and revealed severe multivessel coronary artery disease. Patient was then transferred to [facility] for CV surgery evaluation and need [...] SCDs for DVT prophylaxis Noé Madrid MD [facility] 03/09/2023 12.13 PM Consultants: anesthesiology, cardiology, cardiovascular surgery, critical/ robotic technician, hospitalist Code status: full code Plan discussed with: patient, consultants, nurse Critical care time: Minutes: 40 at 1424 RPT #:[id number] [facility] 2023-03-08 15:31:00 [facility] Pulmonology Progress Note REPORT#:[id number] REPORT STATUS: Signed DATE:03/08/23 TIME: 1531 PATIENT: TEVIN NYE UNIT #: [id number] ROOM/BED: [place] [address] : 51 AGE: 72 SEX: M ATTEND: [...] Mean 88 03/08 1500 Pulse Ox 95 / 1500 Temp 37.1 / 1500 Pulse 66 07/ 1500 Resp 23 03/08 1500 O2 Delivery [...] Tartrate (LOPRESSOR) 12.5 MG Q12HR PO Ipratropium [place] (ATROVENT) 500 MCG RTQ2H PRN PRN INH [...] MG TABLET) 17.2 MG BEDTIME PO Ipratropium [place] (ATROVENT) 500 MCG RTQ4H INH (DC) Acetaminophen [...] no guarding Extremities: no clubbing, no cyanosis Neuro/EXPENSE ANALYST: alert, oriented X 3, no motor deficits [...] L Temperature (F) 98.2 O2 Delivery Device [facility] Laboratory Tests 03/08 03/08 03/08 03/08 03/08 [...] (Auto) (14.0 - 32.0 %) 3.9 L [place] % (Auto) (4.8 - 9.0 %) 8.6 Eos % (Auto) (0.3 - 3.7 %) 0.0 L Baso % (Auto) (0.0 - 2.0 %) 0.2 Neut # (Auto) (2.0 - 7.6 x10 3/uL) 5.39 Lymph # (Auto) (1.0 - 3.8 x10 3/uL) 0.24 L [place] # (Auto) (0.1 - 0.8 x10 3/uL) [...] Report Impression - Status: SIGNED Entered: 03/08/2023 08 IMPRESSION: Unchanged appearance of the lungs. Impression [...] pulm edema-stable - PT/OT at 1533 RPT #:[id number] [facility] 2023-03-08 15:11:00 [facility] ([facility]) Cardiothoracic Surgery Prog REPORT#:[id number] REPORT STATUS: Signed DATE:03/08/23 TIME: 151 PATIENT: TEVIN NYE UNIT #: [id number] ROOM/BED: 3343-1 : 51 AGE: 72 SEX: [...] moves all Musculoskeletal: full range of motion Neuro/EXPENSE ANALYST: alert, oriented X 3 Skin: dry, intact Psychiatry: normal affect, normal mood Current Medications Medications: Active Meds + DC'd Last 24 Hrs Insulin Human Lispro (HUMALOG) 0 AC HS SUBQ Furosemide (LASIX 40 mg/4 mL INJECTION) 40 MG ONCE ONE IV (DC) Methylprednisolone Sodium Succinate (Solu-Medrol 40 MG Vial) 20 MG DAILY IV Metoprolol Tartrate (LOPRESSOR) 12.5 MG Q12HR PO Ipratropium [place] (ATROVENT) 500 MCG RTQ2H PRN PRN INH [...] MG TABLET) 17.2 MG BEDTIME PO Ipratropium [place] (ATROVENT) 500 MCG RTQ4H INH (DC) Acetaminophen [...] L Temperature (F) 98.2 O2 Delivery Device [facility] Laboratory Tests 03/08 03/08 03/08 03/08 03/08 0959 0805 0625 0212 0209 Chemistry POC Creatinine (0.8 - 1.3 mg/dL) 2.4 H POC Glucose (70 - 110 MG/DL) 229 H 136 H 132 H 121 H POC Glucose (mg/dL) (70 - 110 MG/DL) 102 03/08 03/08 03/07 03/07 03/07 0203 0042 4722 4000 3402 Chemistry Sodium (134 - 147 mEq/L) 144 [...] (Auto) (14.0 - 32.0 %) 3.9 L [place] % (Auto) (4.8 - 9.0 %) 8.6 Eos % (Auto) (0.3 - 3.7 %) 0.0 L Baso % (Auto) (0.0 - 2.0 %) 0.2 Neut # (Auto) (2.0 - 7.6 x10 3/uL) 5.39 Lymph # (Auto) (1.0 - 3.8 x10 3/uL) 0.24 L [place] # (Auto) (0.1 - 0.8 x10 3/uL) [...] (November 2022 on eliquis) who presented to [facility] with chest pain, dyspnea on exertion, and NSTEMI. Coronary angiogram was done and revealed severe multivessel coronary artery disease. Patient was then transferred to [facility] for CV surgery evaluation and need for CABG. PLAN Admit patient to CVICU Initiate preop workup Incentive spirometer teaching Carotid ultrasound BLE vein mapping CT chest non-contrast UA to r/o UTI Echocardiogram Heparin and Nitro drip Consult pulmonary, cardiology, and robotic technician Coronary angiogram reviewed and patient will benefit [...] CVICU Consultants: anesthesiology, cardiology, cardiovascular surgery, critical/ robotic technician, hospitalist at 1844 RPT #:[id number] [facility] 2023-03-08 10:46:00 [facility] Cardiology Progress Note REPORT#:[id number] REPORT STATUS: Signed DATE:03/08/23 TIME: 1045 PATIENT: TEVIN NYE UNIT #: [id number] ROOM/BED: [place] [address] : 51 AGE: 72 SEX: M ATTEND: [...] O2 Flow FiO2 Mean Ox Delivery Rate 07/ 0815 157/58 87 07/ 0815 36.8 72 [...] nasal cannula 07/ 0700 Nasal 4 cannula 07/ 0700 142/49 76 07/01 0700 36.7 61 [...] 98 06/30 2139 97 Nasal 4 cannula /30 2130 36.9 58 23 127/63 90 97 06/30 2100 36.8 68 21 141/65 94 98 06/30 2030 37.2 65 21 127/59 85 98 06/30 2000 37.3 71 23 136/63 93 97 06/30 1930 37.4 71 24 140/65 93 98 06/30 1900 36.8 06/30 1900 Nasal 4 cannula /30 1900 37.4 70 33 108/45 66 97 [...] Tartrate (LOPRESSOR) 12.5 MG Q12HR PO Ipratropium [place] (ATROVENT) 500 MCG RTQ2H PRN PRN INH [...] MG TABLET) 17.2 MG BEDTIME PO Ipratropium [place] (ATROVENT) 500 MCG RTQ4H INH (DC) Acetaminophen [...] refill, no edema Results Findings/Data: Laboratory Tests 07/01 0209 Blood Gas Puncture Site Art Line O2 [...] L Temperature (F) 98.2 O2 Delivery Device [facility] Laboratory Tests 03/08 03/08 03/08 03/08 03/08 0959 0805 0625 0212 0209 Chemistry POC Creatinine (0.8 - 1.3 mg/dL) 2.4 H POC Glucose (70 - 110 MG/DL) 229 H 136 H 132 H 121 H POC Glucose (mg/dL) (70 - 110 MG/DL) 102 03/08 03/08 03/07 03/07 03/07 0203 0042 7430 2083 3301 Chemistry Sodium (134 - 147 mEq/L) 144 [...] (Auto) (14.0 - 32.0 %) 3.9 L [place] % (Auto) (4.8 - 9.0 %) 8.6 Eos % (Auto) (0.3 - 3.7 %) 0.0 L Baso % (Auto) (0.0 - 2.0 %) 0.2 Neut # (Auto) (2.0 - 7.6 x10 3/uL) 5.39 Lymph # (Auto) (1.0 - 3.8 x10 3/uL) 0.24 L [place] # (Auto) (0.1 - 0.8 x10 3/uL) [...] RADIOLOGY - XR CHEST 1 V 03/08 08 Report Impression - Status: SIGNED Entered: 03/08/2023835 IMPRESSION: Unchanged appearance of the lungs. Impression By: Herlinda - Ezekiel Esteves M.D. Diagnosis, Assessment Plan [...] cvicu nurse and pt at 1048 RPT #:[id number] [facility] 2023-03-08 10:13:00 [facility] ([facility]) Nephrology Progress Note REPORT#:[id number] REPORT STATUS: Signed DATE:03/08/23 TIME: 1013 PATIENT: TEVIN NYE UNIT #: [id number] ROOM/BED: 2201 : 51 AGE: 72 SEX: M ATTEND: Luci Beyer MD ADM AUTHOR: Glendy Paz MD * ALL edits or amendments must be made on the electronic/computer document * Subjective Comments: Sitting up in the chair, still coughing up brownish sputum. Objective General VS/I O: Vital Signs: Date Time Temp Pulse Resp B/P B/P Pulse O2 O2 Flow FiO2 Mean Ox Delivery Rate 07/ 0815 157/58 87 07/01 0815 98.2 72 26 145/66 95 99 [...] 99.0 65 21 127/59 85 98 06/30 1999 99.1 71 23 136/63 93 97 06/30 [...] cannula 06/30 1515 119/46 68 06/30 1515 99.5 73 [...] Tartrate (LOPRESSOR) 12.5 MG Q12HR PO Ipratropium [place] (ATROVENT) 500 MCG RTQ2H PRN PRN INH [...] MG TABLET) 17.2 MG BEDTIME PO Ipratropium [place] (ATROVENT) 500 MCG RTQ4H INH (DC) Acetaminophen [...] catheter, urine Extremities: pitting edema, no gangrene Neuro/EXPENSE ANALYST: alert, normal speech Results Findings/Data: Laboratory Tests [...] L Temperature (F) 98.2 O2 Delivery Device [facility] Laboratory Tests 03/08 03/08 03/08 03/08 03/08 0959 0805 0625 0212 0209 Chemistry POC Creatinine (0.8 - 1.3 mg/dL) 2.4 H POC Glucose (70 - 110 MG/DL) 229 H 136 H 132 H 121 H POC Glucose (mg/dL) (70 - 110 MG/DL) 102 03/08 03/08 03/07 03/07 03/07 0203 0042 2612 6042 1958 Chemistry Sodium (134 - 147 mEq/L) 144 [...] (Auto) (14.0 - 32.0 %) 3.9 L [place] % (Auto) (4.8 - 9.0 %) 8.6 Eos % (Auto) (0.3 - 3.7 %) 0.0 L Baso % (Auto) (0.0 - 2.0 %) 0.2 Neut # (Auto) (2.0 - 7.6 x10 3/uL) 5.39 Lymph # (Auto) (1.0 - 3.8 x10 3/uL) 0.24 L [place] # (Auto) (0.1 - 0.8 x10 3/uL) [...] appearance of the lungs. Impression By: BuckABDavid Esteves M.D. Diagnosis, Assessment Plan Free Text [...] on 03/04/23 at 1717 at 1243 RPT #:[id number] END OF REPORT [facility] 2023-03-08 09:36:00 [facility] ([facility]) Critical Care Progress Note REPORT#:[id number] REPORT STATUS: Signed DATE:03/08/23 TIME: 935 PATIENT: TEVIN NYE UNIT #: [id number] ROOM/BED: [place] [id number] : 51 AGE: 72 SEX: M ATTEND: Luci Beyer MD ADM AUTHOR: Noé Madrid MD * ALL edits or amendments must be made on the electronic/computer document * Subjective Chief complaint: Chest pain/Unstable angina Wheezing Dyspnea Multivessel coronary artery disease Non-ST elevation MT Status post CABG x5 and ILAA Elective [...] (November 2022 on eliquis) who presented to [facility] [place] with chest pain, dyspnea on exertion, and NSTEMI. Coronary angiogram was done and revealed severe multivessel coronary artery disease. Patient was then transferred to [facility] for CV surgery evaluation and need [...] Tartrate (LOPRESSOR) 12.5 MG Q12HR PO Ipratropium [place] (ATROVENT) 500 MCG RTQ2H PRN PRN INH [...] MG TABLET) 17.2 MG BEDTIME PO Ipratropium [place] (ATROVENT) 500 MCG RTQ4H INH (DC) Acetaminophen [...] (Auto) (14.0 - 32.0 %) 3.9 L [place] % (Auto) (4.8 - 9.0 %) 8.6 Eos % (Auto) (0.3 - 3.7 %) 0.0 L Baso % (Auto) (0.0 - 2.0 %) 0.2 Neut # (Auto) (2.0 - 7.6 x10 3/uL) 5.39 Lymph # (Auto) (1.0 - 3.8 x10 3/uL) 0.24 L [place] # (Auto) (0.1 - 0.8 x10 3/uL) [...] Entered: 03/08/202336 IMPRESSION: Unchanged appearance of the lungs. Impression By: BuckABDavid - Ezekiel Esteves M.D. Results: labs reviewed, vital signs reviewed, rhythm personally rev'd, current med profile rev'd Diagnosis, Assessment Plan Free text A P: Problem List: Chest pain Wheezing Dyspnea Multivessel coronary artery disease Non-ST elevation MT Status post CABG x5 and ILAA Elective [...] (November 2022 on eliquis) who presented to [facility] [place] with chest pain, dyspnea on exertion, and NSTEMI. Coronary angiogram was done and revealed severe multivessel coronary artery disease. Patient was then transferred to [facility] for CV surgery evaluation and need [...] for DVT prophylaxis Noé Madrid MD FACP [facility] 03/04/2023 6.32 PM 03/07/2023 Neurologically patient [...] (November 2022 on eliquis) who presented to [facility] with chest pain, dyspnea on exertion, and NSTEMI. Coronary angiogram was done and revealed severe multivessel coronary artery disease. Patient was then transferred to [facility] for CV surgery evaluation and need [...] SCDs for DVT prophylaxis Noé Madrid MD [facility] 03/08/2023 9.42 AM Consultants: anesthesiology, cardiology, cardiovascular surgery, critical/ robotic technician, hospitalist Code status: full code Plan discussed with: patient, consultants, nurse, interdisc care team Critical care time: Minutes: 35 at 0945 RPT #:[id number] END OF REPORT [facility] 2023-03-07 15:02:00 [facility] ([facility]) Nephrology Progress Note REPORT#:[id number] REPORT STATUS: Signed DATE:03/07/23 TIME: 1502 PATIENT: TEVIN NYE UNIT #: [id number] ROOM/BED: [place] [address] : 51 AGE: 72 SEX: M ATTEND: [...] 154/60 89 96 06/29 2200 140/67 97 03/06 2200 63 19 [...] Tartrate (LOPRESSOR) 12.5 MG Q12HR PO Ipratropium [place] (ATROVENT) 500 MCG RTQ2H PRN PRN INH [...] MG TABLET) 17.2 MG BEDTIME PO Ipratropium [place] (ATROVENT) 500 MCG RTQ4H INH Acetaminophen (TYLENOL) [...] catheter, urine Extremities: no edema, no gangrene Neuro/EXPENSE ANALYST: alert, normal speech Results Findings/Data: Laboratory Tests [...] - 32.0 %) 2.7 L 2.7 L [place] % (Auto) (4.8 - 9.0 %) 6.7 5.2 Eos % (Auto) (0.3 - 3.7 %) 0.0 L 0.0 L Baso % (Auto) (0.0 - 2.0 %) 0.0 0.1 Neut # (Auto) (2.0 - 7.6 x10 3/uL) 6.96 7.00 Lymph # (Auto) (1.0 - 3.8 x10 3/uL) 0.21 L 0.21 L [place] # (Auto) (0.1 - 0.8 x10 3/uL) [...] RADIOLOGY - XR CHEST 1 V 03/07 9293 Report Impression - Status: SIGNED Entered: 03/07/2023 3807 IMPRESSION: 1. Increased interstitial opacities compatible with [...] the morning if urine output does not pick pulling machine tender or respiratory status worsens 2. Acute hypercapnic [...] on 03/04/23 at 1717 at 1749 RPT #:[id number] [facility] 2023-03-07 14:15:00 [facility] ([facility]) Acute Rehab Consult REPORT#:[id number] REPORT STATUS: Signed DATE:03/07/23 TIME: 1415 PATIENT: TEVIN NYE UNIT #: [id number] ROOM/BED: [place] [address] : 51 AGE: 72 SEX: M ATTEND: [...] His Cr climed to max of 3.1. [place] to be ATN secondary to contrast. Nephrology [...] Level: Minimal Assistance Gait Deviations: SHORT STEP [facility] Mobility: No Document Pain/Education: No Advanced Progression: No Effects of Treatment: Tolerance increased Cardio tolerance improved Post [place] Precautions: In Chair Call Light in Reach Nursing Notified Review Plan of Care: Yes PT charges: Gait Training [id number] Gait Cmt: AMBULATED FAIR USING WC HANDLES [...] Fair to Good Recommendations: PT Consult Modified [place] Score: No MR Screening Performed: Pre-Morbid Screening Document Pain/Education: Yes Post [place] Precautions: In Bed, rails Up Call Light in Reach Nursing Notified O2 on Post [place] Comments: ALL NEEDS IN REACH Evaluation Type: Low Complexity Reason for Eval Complexity: Impaired balance Document OT charges: EVAL OT HIGH COMP [id number] Comments: PT DECREASE STRENGTH, ENDURANCE, STANDING BALANCE [...] Normal Gross Motor Coordination: Normal Right Hand Marine Pilot Strength: Fair Left Hand Marine Pilot Strength: Fair Comments: MMT NOT TEST D/T [...] as brushing teeth? 3 Eating meals? 3 [facility] Activity Score: 11 ACTIVITIES OF DAILY [...] Dose Route Stop Time Status Admin Ipratropium [place] 500 MCG RTQ2H PRN PRN 03/07 1655 AC (ATROVENT) INH 04/06 1654 Formoterol Fumarate 20 MCG RTBID 03/05 1315 AC 03/07 (PERFOROMIST) NEB 04/04 1314 0744 Tamsulosin HCl 0.8 MG PC BK 03/05 1115 AC 03/07 (Flomax 0.4 mg) PO 04/04 1114 0749 Ipratropium [place] 500 MCG RTQ4H 03/04 2000 AC 03/07 [...] 0748 Metoprolol Tartrate 25 MG Q12HR 03/07 09 DC 03/07 (LOPRESSOR) PO 04/06 0859 0746 [...] PRN 03/04 170 AC Dextrose IV 04/03 1659 (MAGNESIUM SULFATE 1GM/D5W 100ML) Electrolytic, Caloric, And [...] WATER) Dextrose/Water 250 ML ASDIR PRN 03/04 170 CKD (DEXTROSE 10% IN IV 04/03 165 [...] PO 04/04 0859 0748 Pantoprazole 40 MG DAILY@00 03/05 0600 AC 03/07 (PROTONIX) PO 04/04 [...] (BACTROBAN 2% 22 GM NASAL 03/09 2101 8727 OINTMENT) Vitamins Sig/Yas Start time Last Medication [...] motion normal, strength testing normal, no atrophy Neuro/EXPENSE ANALYST: alert, oriented X 3, normal speech, no [...] 03/07 03/07 03/06 03/06 0231 0114 2305 2107 Blood Gas Puncture Site Art Line [...] (Auto) (14.0 - 32.0 %) 2.7 L [place] % (Auto) (4.8 - 9.0 %) 6.7 Eos % (Auto) (0.3 - 3.7 %) 0.0 L Baso % (Auto) (0.0 - 2.0 %) 0.0 Neut # (Auto) (2.0 - 7.6 x10 3/uL) 6.96 Lymph # (Auto) (1.0 - 3.8 x10 3/uL) 0.21 L [place] # (Auto) (0.1 - 0.8 x10 3/uL) [...] (Auto) (14.0 - 32.0 %) 2.7 L [place] % (Auto) (4.8 - 9.0 %) 5.2 Eos % (Auto) (0.3 - 3.7 %) 0.0 L Baso % (Auto) (0.0 - 2.0 %) 0.1 Neut # (Auto) (2.0 - 7.6 x10 3/uL) 7.00 Lymph # (Auto) (1.0 - 3.8 x10 3/uL) 0.21 L [place] # (Auto) (0.1 - 0.8 x10 3/uL) [...] Report Impression - Status: SIGNED Entered: 03/07/2023 5367 IMPRESSION: 1. Increased interstitial opacities compatible with [...] you for allowing us to particapte in [facility] care of the pt. Will continue to follow. at 2279 RPT #:[id number] [facility] 2023-03-07 13:00:00 [facility] ([facility]) Pulmonology Progress Note REPORT#:[id number] REPORT STATUS: Signed DATE:03/07/23 TIME: 1300 PATIENT: TEVIN NYE UNIT #: [id number] ROOM/BED: [place] [address] : 51 AGE: 72 SEX: M ATTEND: [...] Tartrate (LOPRESSOR) 12.5 MG Q12HR PO Ipratropium [place] (ATROVENT) 500 MCG RTQ2H PRN PRN INH [...] MG TABLET) 17.2 MG BEDTIME PO Ipratropium [place] (ATROVENT) 500 MCG RTQ4H INH Acetaminophen (TYLENOL) [...] no guarding Extremities: no clubbing, no cyanosis Neuro/EXPENSE ANALYST: alert, oriented X 3, no motor deficits [...] 3.40 03/07 03/06 03/06 03/06 03/06 0114 5 7 1955 1607 Chemistry Sodium (134 - 147 [...] - 32.0 %) 2.7 L 2.7 L [place] % (Auto) (4.8 - 9.0 %) 6.7 5.2 Eos % (Auto) (0.3 - 3.7 %) 0.0 L 0.0 L Baso % (Auto) (0.0 - 2.0 %) 0.0 0.1 Neut # (Auto) (2.0 - 7.6 x10 3/uL) 6.96 7.00 Lymph # (Auto) (1.0 - 3.8 x10 3/uL) 0.21 L 0.21 L [place] # (Auto) (0.1 - 0.8 x10 3/uL) [...] RADIOLOGY - XR CHEST 1 V 03/07 6950 Report Impression - Status: SIGNED Entered: 03/07/2023 2546 IMPRESSION: 1. Increased interstitial opacities compatible with [...] pulm edema - PT/OT at 1303 RPT #:[id number] [facility] 2023-03-07 12:02:00 [facility] Cardiothoracic Surgery Prog REPORT#:[id number] REPORT STATUS: Signed DATE:03/07/23 TIME: 1202 PATIENT: TEVIN NYE UNIT #: [id number] ROOM/BED: [place] [address] : [birth year] AGE: 73 SEX: M ATTEND: Luci Beyer MD ADM AUTHOR: Luci Beyer MD * ALL edits or amendments must be made on the electronic/computer document * General Post-op: day 3 Status post: 03/04/23 CABG x 4 (MCCORMICK-LAD,SVG-Leana, SVG-OM, SVG-PDA) ALAIla LAMH (LGSV) Posterior pericardiotomy Subjective Chief complaint: chest [...] moves all Musculoskeletal: full range of motion Neuro/EXPENSE ANALYST: alert, oriented X 3 Skin: dry, intact Psychiatry: normal affect, normal mood Current Medications Medications: Active Meds + DC'd Last 24 Hrs Methylprednisolone Sodium Succinate (Solu-Medrol 40 MG Vial) 20 MG DAILY IV (UNVr) Metoprolol Tartrate (LOPRESSOR) 12.5 MG Q12HR PO (UNV) Ipratropium [place] (ATROVENT) 500 MCG RTQ2H PRN PRN INH [...] MG TABLET) 17.2 MG BEDTIME PO Ipratropium [place] (ATROVENT) 500 MCG RTQ4H INH Acetaminophen (TYLENOL) [...] - 32.0 %) 2.7 L 2.7 L [place] % (Auto) (4.8 - 9.0 %) 6.7 5.2 Eos % (Auto) (0.3 - 3.7 %) 0.0 L 0.0 L Baso % (Auto) (0.0 - 2.0 %) 0.0 0.1 Neut # (Auto) (2.0 - 7.6 x10 3/uL) 6.96 7.00 Lymph # (Auto) (1.0 - 3.8 x10 3/uL) 0.21 L 0.21 L [place] # (Auto) (0.1 - 0.8 x10 3/uL) [...] (November 2022 on eliquis) who presented to [facility] [place] with chest pain, dyspnea on exertion, and NSTEMI. Coronary angiogram was done and revealed severe multivessel coronary artery disease. Patient was then transferred to [facility] for CV surgery evaluation and need for CABG. PLAN Admit patient to CVICU Initiate preop workup Incentive spirometer teaching Carotid ultrasound BLE vein mapping CT chest non-contrast UA to r/o UTI Echocardiogram Heparin and Nitro drip Consult pulmonary, cardiology, and robotic technician Coronary angiogram reviewed and patient will benefit [...] CVICU Consultants: anesthesiology, cardiology, cardiovascular surgery, critical/ robotic technician, hospitalist at 1732 RPT #:[id number] [facility] 2023-03-07 11:25:00 [facility] Critical Care Progress Note REPORT#:[id number] REPORT STATUS: Signed DATE:03/07/23 TIME: 1125 PATIENT: TEVIN NYE UNIT #: [id number] ROOM/BED: [place] [address] : 51 AGE: 72 SEX: M ATTEND: [...] (November 2022 on eliquis) who presented to [facility] [place] with chest pain, dyspnea on exertion, and NSTEMI. Coronary angiogram was done and revealed severe multivessel coronary artery disease. Patient was then transferred to [facility] for CV surgery evaluation and need [...] Meds + DC'd Last 24 Hrs Ipratropium [place] (ATROVENT) 500 MCG RTQ2H PRN PRN INH [...] MG TABLET) 17.2 MG BEDTIME PO Ipratropium [place] (ATROVENT) 500 MCG RTQ4H INH Acetaminophen (TYLENOL) [...] - 32.0 %) 2.7 L 2.7 L [place] % (Auto) (4.8 - 9.0 %) 6.7 5.2 Eos % (Auto) (0.3 - 3.7 %) 0.0 L 0.0 L Baso % (Auto) (0.0 - 2.0 %) 0.0 0.1 Neut # (Auto) (2.0 - 7.6 x10 3/uL) 6.96 7.00 Lymph # (Auto) (1.0 - 3.8 x10 3/uL) 0.21 L 0.21 L [place] # (Auto) (0.1 - 0.8 x10 3/uL) [...] Dyspnea Multivessel coronary artery disease Non-ST elevation MT Status post CABG x5 and ILAA Elective [...] (November 2022 on eliquis) who presented to [facility] [place] with chest pain, dyspnea on exertion, and NSTEMI. Coronary angiogram was done and revealed severe multivessel coronary artery disease. Patient was then transferred to [facility] for CV surgery evaluation and need [...] SCDs for DVT prophylaxis Noé Madrid MD [facility] 03/04/2023 6.32 PM 03/07/2023 Neurologically patient is [...] procedures Consultants: anesthesiology, cardiology, cardiovascular surgery, critical/ robotic technician, hospitalist at 1139 RPT #:[id number] [facility] 2023-03-07 06:50:00 [facility] ([facility]) Cardiology Progress Note REPORT#:[id number] REPORT STATUS: Signed DATE:03/07/23 TIME: 06 PATIENT: TEVIN NYE UNIT #: [id number] ROOM/BED: [place] [address] : 51 AGE: 72 SEX: M ATTEND: [...] 168/61 94 94 03/07 0636 167/60 92 / 0636 67 25 92 03/07 0630 67 23 164/102 126 93 06/30 0615 150/62 88 06/30 0615 63 24 130/66 92 100 /30 0600 131/66 93 /30 0600 65 19 142/61 85 99 06/30 [...] 160/75 108 06/29 2115 69 24 93 06/29 2100 70 25 93 03/06 2045 151/71 105 03/06 2045 66 20 163/64 95 96 03/06 2030 156/74 106 03/06 2030 66 20 166/64 96 95 03/06 2015 141/70 100 06 2015 66 19 160/62 92 95 03/06 2000 99.0 061999 Nasal 2 cannula 03/06 2000 144/68 98 061999 67 22 167/64 145 97 03/06 1945 [...] 162/58 89 98 03/06 1530 152/72 103 06/ 1530 99.5 71 16 162/58 88 99 [...] 1100 99.1 87 15 139/52 78 94 06/ 1046 100/53 74 03/06 1046 99.1 78 [...] Meds + DC'd Last 24 Hrs Ipratropium [place] (ATROVENT) 500 MCG RTQ2H PRN PRN INH [...] Sodium Chloride (SODIUM CHLORIDE 0.9%) 1,000 ML .[id number] IV (DC) Budesonide (PULMICORT RESPULES) 0.5 MG [...] MG TABLET) 17.2 MG BEDTIME PO Ipratropium [place] (ATROVENT) 500 MCG RTQ4H INH Acetaminophen (TYLENOL) [...] g/dL) 3.40 03/06 03/06 03/06 03/06 03/06 1955 1607 1351 1205 1039 Chemistry Sodium (134 [...] - 32.0 %) 2.7 L 2.7 L [place] % (Auto) (4.8 - 9.0 %) 6.7 5.2 Eos % (Auto) (0.3 - 3.7 %) 0.0 L 0.0 L Baso % (Auto) (0.0 - 2.0 %) 0.0 0.1 Neut # (Auto) (2.0 - 7.6 x10 3/uL) 6.96 7.00 Lymph # (Auto) (1.0 - 3.8 x10 3/uL) 0.21 L 0.21 L [place] # (Auto) (0.1 - 0.8 x10 3/uL) [...] Plan Consultants: anesthesiology, cardiology, cardiovascular surgery, critical/ robotic technician, hospitalist Free Text DxA P Notes Free [...] on chronic renal failure at 0654 RPT #:[id number] [facility] 2023-03-06 18:26:00 [facility] ([facility]) Pulmonology Progress Note REPORT#:[id number] REPORT STATUS: Signed DATE:03/06/23 TIME: 1825 PATIENT: TEVIN NYE UNIT #: [id number] ROOM/BED: [facility] : 51 AGE: 72 SEX: M ATTEND: [...] Meds + DC'd Last 24 Hrs Ipratropium [place] (ATROVENT) 500 MCG RTQ2H PRN PRN INH [...] Sodium Chloride (SODIUM CHLORIDE 0.9%) 1,000 ML .[id number] IV (DC) Budesonide (PULMICORT RESPULES) 0.5 MG [...] MG TABLET) 17.2 MG BEDTIME PO Ipratropium [place] (ATROVENT) 500 MCG RTQ4H INH Acetaminophen (TYLENOL) [...] no guarding Extremities: no clubbing, no cyanosis Neuro/EXPENSE ANALYST: alert, oriented X 3, no motor deficits [...] Device Cannula Cannula 2L HFNC 4L HFNC 03/051 2007 Blood Gas Puncture Site Art Line [...] %) 2.7 L 4.2 L 3.2 L [place] % (Auto) (4.8 - 9.0 %) 5.2 9.8 H 8.4 Eos % (Auto) (0.3 - 3.7 %) 0.0 L 0.0 L 0.0 L Baso % (Auto) (0.0 - 2.0 %) 0.1 0.0 0.0 Neut # (Auto) (2.0 - 7.6 x10 3/uL) 7.00 3.22 4.05 Lymph # (Auto) (1.0 - 3.8 x10 3/uL) 0.21 L 0.16 L 0.15 L [place] # (Auto) (0.1 - 0.8 x10 3/uL) [...] following - D/W ICC at 1827 RPT #:[id number] [facility] 2023-03-06 18:09:00 [facility]) Cardiothoracic Surgery Prog REPORT#:[id number] REPORT STATUS: Signed DATE:03/06/23 TIME: 1809 PATIENT: TEVIN NYE UNIT #: [id number] ROOM/BED: [place] [address] : 52 AGE: 73 SEX: M ATTEND: [...] moves all Musculoskeletal: full range of motion Neuro/EXPENSE ANALYST: alert, oriented X 3 Skin: dry, intact Psychiatry: normal affect, normal mood Current Medications Medications: Active Meds + DC'd Last 24 Hrs Ipratropium [place] (ATROVENT) 500 MCG RTQ2H PRN PRN INH [...] Sodium Chloride (SODIUM CHLORIDE 0.9%) 1,000 ML .[id number] IV (DC) Budesonide (PULMICORT RESPULES) 0.5 MG [...] MG TABLET) 17.2 MG BEDTIME PO Ipratropium [place] (ATROVENT) 500 MCG RTQ4H INH Acetaminophen (TYLENOL) [...] HFNC 4L HFNC 03/05 03/05 03/05 2312 2202 2007 Blood Gas Puncture Site Art Line [...] - 110 MG/DL) 131 H 146 H 06/03/06 0547 0313 0111 2312 2254 Chemistry Sodium [...] H Laboratory Tests 03/06 03/06 03/05 1606 0116 4949 Hematology WBC (4.5 - 11.0 x10 3/uL) [...] %) 2.7 L 4.2 L 3.2 L [place] % (Auto) (4.8 - 9.0 %) 5.2 9.8 H 8.4 Eos % (Auto) (0.3 - 3.7 %) 0.0 L 0.0 L 0.0 L Baso % (Auto) (0.0 - 2.0 %) 0.1 0.0 0.0 Neut # (Auto) (2.0 - 7.6 x10 3/uL) 7.00 3.22 4.05 Lymph # (Auto) (1.0 - 3.8 x10 3/uL) 0.21 L 0.16 L 0.15 L [place] # (Auto) (0.1 - 0.8 x10 3/uL) [...] (November 2022 on eliquis) who presented to [facility] with chest pain, dyspnea on exertion, and NSTEMI. Coronary angiogram was done and revealed severe multivessel coronary artery disease. Patient was then transferred to [facility] for CV surgery evaluation and need for CABG. PLAN Admit patient to CVICU Initiate preop workup Incentive spirometer teaching Carotid ultrasound BLE vein mapping CT chest non-contrast UA to r/o UTI Echocardiogram Heparin and Nitro drip Consult pulmonary, cardiology, and robotic technician Coronary angiogram reviewed and patient will benefit [...] CVICU Consultants: anesthesiology, cardiology, cardiovascular surgery, critical/ robotic technician, hospitalist at 1731 RPT #:[id number] [facility] 2023-03-06 17:47:00 [id number] [place] [address] PATIENT NAME: TEVIN NYE ADMIT DATE: 03/03/23 ACCOUNT NO: [id number] ROOM NO: [facility] AGE: 72 REPORT TYPE: eECHOCARDIOGRAM REPORT SEX: M ADMITTING PHYSICIAN:Luci Beyer MD ATTENDING PHYSICIAN:Luci Beyer MD *[place] [address] Transthoracic Echocardiogram Patient: Tevin Nye Study Date: 03/06/2023 BP: 162 / 58 Location: [facility] URN: [id number] : 1950 Age: 72 Height: 67 in / 170.2 cm Gender: M Weight: 197.6 lb / 89.8 kg BMI/BSA: 31 kg/m 2 / 2.01 m 2 *Ordering Physician: * Luci Beyer MD *Interpreting Physician: * Anuj Sylvester MD *Vice President Corporate Communications: * Velia, Tori Indications: Evaluation post CABG. Study data: Transthoracic [...] Hg 6.1 ---- D PATIENT NAME: TEVIN NYE Peak E/A 1.84 0.64 ---- ratio MVA, PHT 2.7 cm 2 2.7 ---- MR peak v 1.94 m/sec ---- Pulmonic valve Value 03/04/2023 Ref FL v, ED 0.81 m/sec 0.8 ---- Tricuspid [...] 17:47 at 1747 PATIENT NAME: TEVIN NYE [facility] 2023-03-06 13:27:00 [facility] Critical Care Progress Note REPORT#:[id number] REPORT STATUS: Signed DATE:03/06/23 TIME: 1327 PATIENT: TEVIN NYE UNIT #: [id number] ROOM/BED: [place] [address] : [birth year] AGE: 72 SEX: M ATTEND: [...] (November 2022 on eliquis) who presented to [facility] with chest pain, dyspnea on exertion, and NSTEMI. Coronary angiogram was done and revealed severe multivessel coronary artery disease. Patient was then transferred to [facility] for CV surgery evaluation and need [...] Meds + DC'd Last 24 Hrs Ipratropium [place] (ATROVENT) 500 MCG RTQ2H PRN PRN INH [...] Sodium Chloride (SODIUM CHLORIDE 0.9%) 1,000 ML .[id number] IV (DC) Acetaminophen (OFIRMEV 10MG/ML) 100 ML [...] MG TABLET) 17.2 MG BEDTIME PO Ipratropium [place] (ATROVENT) 500 MCG RTQ4H INH Acetaminophen (TYLENOL) [...] Laboratory Tests 03/06 03/06 03/06 03/05 1039 0571 0111 2312 Blood Gas Puncture Site Art [...] - 32.0 %) 4.2 L 3.2 L [place] % (Auto) (4.8 - 9.0 %) 9.8 H 8.4 Eos % (Auto) (0.3 - 3.7 %) 0.0 L 0.0 L Baso % (Auto) (0.0 - 2.0 %) 0.0 0.0 Neut # (Auto) (2.0 - 7.6 x10 3/uL) 3.22 4.05 Lymph # (Auto) (1.0 - 3.8 x10 3/uL) 0.16 L 0.15 L [place] # (Auto) (0.1 - 0.8 x10 3/uL) [...] Dyspnea Multivessel coronary artery disease Non-ST elevation MT Status post CABG x5 and ILAA Elective [...] (November 2022 on eliquis) who presented to [facility] with chest pain, dyspnea on exertion, and NSTEMI. Coronary angiogram was done and revealed severe multivessel coronary artery disease. Patient was then transferred to [facility] for CV surgery evaluation and need [...] SCDs for DVT prophylaxis Noé Madrid MD [facility] 03/04/2023 6.32 PM 03/06/2023 Neurologically patient is [...] procedures Consultants: anesthesiology, cardiology, cardiovascular surgery, critical/ robotic technician, hospitalist at 1336 RPT #:[id number] END OF REPORT [facility] 2023-03-06 12:11:00 [facility] ([facility]) Nephrology Progress Note REPORT#:[id number] REPORT STATUS: Signed DATE:03/06/23 TIME: 1211 PATIENT: TEVIN NYE UNIT #: [id number] ROOM/BED: [place] [address] : 52 AGE: 72 SEX: M ATTEND: [...] 117/55 74 94 06/29 0801 122/66 84 06/ 0801 98.6 140 0 121/62 80 99 06/29 0752 96 Nasal 3 cannula 06/ 0730 119/57 82 06/29 0730 98.6 83 14 137/57 81 94 06/29 0700 123/62 86 06/29 0700 98.6 131 27 144/65 88 94 06/29 0619 98.6 80 24 162/58 88 94 06/29 0600 98.4 80 20 152/52 81 95 /29 0530 98.4 76 21 137/49 76 95 06/ 0500 98.6 75 9 140/54 81 98 / 0430 98.8 76 14 137/52 77 97 06/29 0400 98.8 85 30 133/49 80 91 06/ 0330 98.6 79 14 130/51 74 95 / 0308 76 95 / 0300 98.6 77 [...] 2200 99.3 92 13 146/58 84 100 / 2130 99.3 101 30 119/58 79 96 / 2100 99.5 75 13 110/45 63 100 03/05 2030 99.3 80 9 114/47 66 100 03/05 2000 BiPAP 60 03/05 2000 99.1 87 13 128/48 72 100 06/ 1930 99.3 84 10 128/48 72 100 06/ 1915 84 100 60 06/ 1915 100 [...] Meds + DC'd Last 24 Hrs Ipratropium [place] (ATROVENT) 500 MCG RTQ2H PRN PRN INH [...] Sodium Chloride (SODIUM CHLORIDE 0.9%) 1,000 ML .[id number] IV (DC) Acetaminophen (OFIRMEV 10MG/ML) 100 ML [...] MG TABLET) 17.2 MG BEDTIME PO Ipratropium [place] (ATROVENT) 500 MCG RTQ4H INH Acetaminophen (TYLENOL) [...] catheter, urine Extremities: no edema, no gangrene Neuro/EXPENSE ANALYST: alert, normal speech Results Findings/Data: Laboratory Tests 03/06 03/06 03/06 03/05 1039 0541 0111 2319 Blood Gas Puncture Site Art Line Art [...] 3.40 03/05 03/05 03/05 03/05 03/05 2312 3996 2208 2007 2006 Chemistry Sodium (134 - 147 [...] - 32.0 %) 4.2 L 3.2 L [place] % (Auto) (4.8 - 9.0 %) 9.8 H 8.4 Eos % (Auto) (0.3 - 3.7 %) 0.0 L 0.0 L Baso % (Auto) (0.0 - 2.0 %) 0.0 0.0 Neut # (Auto) (2.0 - 7.6 x10 3/uL) 3.22 4.05 Lymph # (Auto) (1.0 - 3.8 x10 3/uL) 0.16 L 0.15 L [place] # (Auto) (0.1 - 0.8 x10 3/uL) [...] volume. Stable left chest tube. Impression By: Darleen - Bon Spangler M.D. Diagnosis, Assessment Plan [...] on 03/04/23 at 1717 at 1501 RPT #:[id number] [facility] 2023-03-06 06:55:00 [facility] ([facility] Cardiology Progress Note REPORT#:[id number] REPORT STATUS: Signed DATE:03/06/23 TIME: 654 PATIENT: TEVIN NYE UNIT #: [id number] ROOM/BED: [place] [address] : 52 AGE: 72 SEX: M ATTEND: [...] Meds + DC'd Last 24 Hrs Ipratropium [place] (ATROVENT) 500 MCG RTQ2H PRN PRN INH [...] Sodium Chloride (SODIUM CHLORIDE 0.9%) 1,000 ML .[id number] IV Acetaminophen (OFIRMEV 10MG/ML) 100 ML ONCE [...] MG TABLET) 17.2 MG BEDTIME PO Ipratropium [place] (ATROVENT) 500 MCG RTQ4H INH Acetaminophen (TYLENOL) [...] - 5.0 g/dL) 3.40 03/055 2007 2006 1750 1610 Chemistry Sodium (134 - 147 [...] %) 4.2 L 3.2 L 3.6 L [place] % (Auto) (4.8 - 9.0 %) 9.8 H 8.4 10.3 H Eos % (Auto) (0.3 - 3.7 %) 0.0 L 0.0 L 0.0 L Baso % (Auto) (0.0 - 2.0 %) 0.0 0.0 0.0 Neut # (Auto) (2.0 - 7.6 x10 3/uL) 3.22 4.05 6.16 Lymph # (Auto) (1.0 - 3.8 x10 3/uL) 0.16 L 0.15 L 0.26 L [place] # (Auto) (0.1 - 0.8 x10 3/uL) [...] pathologic bowel distention. Impression By: [email or web address] - Daiv Walton M.D. Diagnosis, Assessment Plan Consultants: anesthesiology, cardiology, cardiovascular surgery, critical/ robotic technician, hospitalist Free Text DxA P Notes Free [...] will increase po amio at 0658 RPT #:[id number] END OF REPORT [facility] 2023-03-06 01:03:00 [id number] [place] [id number] PATIENT NAME: TEVIN YNE ADMIT DATE: 03/03/23 ACCOUNT NO: [id number] ROOM NO: [id number] AGE: 72 REPORT TYPE: eELECTROCARDIOGRAM REPORT SEX: M ADMITTING PHYSICIAN:Luci Beyer MD ATTENDING PHYSICIAN:Luci Beyer MD Order: [id number] Test Reason : VTACH Test Date/Time Stamp: [...] Significant changes have occurred Confirmed by MD SYLVESTER GERARD ([id number]) on 03/06/2023 6:03:26 PM Referred By: Self Referred Confirmed by:ANUJ SYLVESTER MD at 1803 PATIENT NAME: TEVIN NYE [facility] 2023-03-05 22:26:00 [id number] [place] [id number] PATIENT NAME: TEVIN NYE ADMIT DATE: 03/03/23 ACCOUNT NO: [id number] ROOM NO: G.[id number] AGE: 72 REPORT TYPE: eELECTROCARDIOGRAM REPORT SEX: M ADMITTING PHYSICIAN:Luci Beyer MD ATTENDING PHYSICIAN:Luci Beyer MD Order: [id number] Test Reason : VTACH Test Date/Time Stamp: [...] MD at 1803 PATIENT NAME: TEVIN NYE [facility] 2023-03-05 20:08:00 [id number] [place] [address] PATIENT NAME: TEVIN NYE ADMIT DATE: 03/03/23 ACCOUNT NO: [id number] ROOM NO: [facility] AGE: 72 REPORT TYPE: eELECTROCARDIOGRAM REPORT SEX: M ADMITTING PHYSICIAN:Luci Beyer MD ATTENDING PHYSICIAN:Luci Beyer MD Order: [id number] Test Reason : VTACH Test Date/Time Stamp: [...] MD at 1802 PATIENT NAME: TEVIN NYE 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5 H PTT ([place]) (25.0 - 39.5 Seconds) 30.8 PT Patient/Control [...] L 3.1 L 3.3 L 6.5 L [place] % (Auto) (4.8 - 9.0 %) 10.3 [...] L 0.12 L 0.17 L 0.59 L [place] # (Auto) (0.1 - 0.8 x10 3/uL) [...] and chronic paranasal sinus disease. ASSESSMENT: ASPECTS ([place] Stroke Program Early CT Score) is 10. Impression By: Jose Juan Scuhler M.D. RADIOLOGY - XR CHEST 1 V 03/05 0501 Report Impression - Status: SIGNED Entered: 03/05/2023826 IMPRESSION: 1. Unchanged mild bibasilar airspace disease. 2. Lines and tubes, as above. Impression By: [email or web address] - Margarito Borges M.D. RADIOLOGY - XR ABDOMEN 1V (KU) 03/05 0838 Report Impression - Status: SIGNED [...] (November 2022 on eliquis) who presented to [facility] with chest pain, dyspnea on exertion, and NSTEMI. Coronary angiogram was done and revealed severe multivessel coronary artery disease. Patient was then transferred to [facility] for CV surgery evaluation and need for CABG. PLAN Admit patient to CVICU Initiate preop workup Incentive spirometer teaching Carotid ultrasound BLE vein mapping CT chest non-contrast UA to r/o UTI Echocardiogram Heparin and Nitro drip Consult pulmonary, cardiology, and robotic technician Coronary angiogram reviewed and patient will benefit [...] CVICU Consultants: anesthesiology, cardiology, cardiovascular surgery, critical/ robotic technician, hospitalist at 2030 RPT #:[id number] [facility] 2023-03-05 16:57:00 [facility] ([facility]) Critical Care Progress Note REPORT#:[id number] REPORT STATUS: Signed DATE:03/05/23 TIME: 1656 PATIENT: TEVIN NYE UNIT #: [id number] ROOM/BED: [place] [address] : 51 AGE: 72 SEX: M ATTEND: [...] (November 2022 on eliquis) who presented to [facility] with chest pain, dyspnea on exertion, and NSTEMI. Coronary angiogram was done and revealed severe multivessel coronary artery disease. Patient was then transferred to [facility] for CV surgery evaluation and need [...] Meds + DC'd Last 24 Hrs Ipratropium [place] (ATROVENT) 500 MCG RTQ2H PRN PRN INH [...] (BRIDION) 0 .STK-MED ONE IV (DC) Ipratropium [place] (ATROVENT) 500 MCG RTQ4H INH Sugammadex Sodium [...] (%) 35 40 03/04 03/04 03/04 03/04 5846 2056 1942 1907 Blood Gas Puncture Site Art Line [...] 5 Pressure Support (cmH2O) 20 03/04 03/04 4246 1733 Blood Gas Puncture Site Art Line [...] L Albumin (3.4 - 5.0 g/dL) 3.40 03/049 2131 2131 2055 1941 Chemistry Sodium (134 - [...] L 3.1 L 3.3 L 6.5 L [place] % (Auto) (4.8 - 9.0 %) 10.3 [...] L 0.12 L 0.17 L 0.59 L [place] # (Auto) (0.1 - 0.8 x10 3/uL) [...] and chronic paranasal sinus disease. ASSESSMENT: ASPECTS ([place] Stroke Program Early CT Score) is 10. [...] - Davi Walton M.D. Diagnosis, Assessment Plan Free text A P: Problem List: Chest pain Wheezing Dyspnea Multivessel coronary artery disease Non-ST elevation MT Status post CABG x5 and ILAA Elective [...] (November 2022 on eliquis) who presented to [facility] with chest pain, dyspnea on exertion, and NSTEMI. Coronary angiogram was done and revealed severe multivessel coronary artery disease. Patient was then transferred to [facility] for CV surgery evaluation and need [...] SCDs for DVT prophylaxis Noé Madrid MD [facility] 03/04/2023 6.32 PM 03/05/2023 Neurologically patient is [...] procedures Consultants: anesthesiology, cardiology, cardiovascular surgery, critical/ robotic technician, hospitalist at 1723 RPT #:[id number] [facility] 2023-03-05 15:46:00 [facility] ([facility]) Nephrology Consultation Note REPORT#:[id number] REPORT STATUS: Signed DATE:03/05/23 TIME: 1546 PATIENT: TEVIN NYE UNIT #: [id number] ROOM/BED: [place] [address] : 51 AGE: 72 SEX: M ATTEND: [...] on eliquis who was originally presented to [facility] with chest pain, dyspnea on exertion, and NSTEMI. Coronary angiogram showed severe multivessel coronary artery disease. Patient was then transferred to [facility] for CV surgery evaluation. Patient had [...] Allergies: Coded Allergies: Penicillins (USE COMMENT [place]TON 06/26/23) PT STATES THAT HE WAS JUST TOLD [...] Nasal 4 cannula 03/04 2200 113/50 71 03/040 97.2 85 14 71 97 03/048 98 [...] Meds + DC'd Last 24 Hrs Ipratropium [place] (ATROVENT) 500 MCG RTQ2H PRN PRN INH [...] (BRIDION) 0 .STK-MED ONE IV (DC) Ipratropium [place] (ATROVENT) 500 MCG RTQ4H INH Sugammadex Sodium [...] SA) 600 MG Q12HR PO (DC) Ipratropium [place] (ATROVENT) 500 MCG RTQ6H INH (DC) Mupirocin [...] catheter, urine Extremities: no edema, no gangrene Neuro/EXPENSE ANALYST: alert, normal speech Results Findings/Data: Laboratory Tests [...] 25 15 03/05 03/05 03/05 03/04 0532 7517 5170 9304 Blood Gas Puncture Site Art Line Art [...] L 3.1 L 3.3 L 6.5 L [place] % (Auto) (4.8 - 9.0 %) 10.3 [...] L 0.12 L 0.17 L 0.59 L [place] # (Auto) (0.1 - 0.8 x10 3/uL) [...] and chronic paranasal sinus disease. ASSESSMENT: ASPECTS ([place] Stroke Program Early CT Score) is 10. [...] on 03/04/23 at 1717 at 1342 RPT #:[id number] [facility] 2023-03-05 13:33:00 [facility]) Pulmonology Progress Note REPORT#:[id number] REPORT STATUS: Signed DATE:03/05/23 TIME: 1333 PATIENT: TEVIN NYE UNIT #: [id number] ROOM/BED: [place] [address] : 51 AGE: 72 SEX: M ATTEND: [...] Meds + DC'd Last 24 Hrs Ipratropium [place] (ATROVENT) 500 MCG RTQ2H PRN PRN INH [...] (BRIDION) 0 .STK-MED ONE IV (DC) Ipratropium [place] (ATROVENT) 500 MCG RTQ4H INH Sugammadex Sodium [...] SA) 600 MG Q12HR PO (DC) Ipratropium [place] (ATROVENT) 500 MCG RTQ6H INH (DC) Mupirocin [...] no guarding Extremities: no clubbing, no cyanosis Neuro/EXPENSE ANALYST: alert, oriented X 3, no motor deficits [...] BiPAP Bagging BiPAP BiPAP Vent Mode CPAP/PS 12/5 12/5 Vent Rate (/MIN) 24 FiO2 (%) 30 30 35 40 PEEP (cmH2O) 7 Pressure Support (cmH2O) 15 03/05 03/05 03/04 03/04 3152 4331 5426 1639 Blood Gas Puncture Site Art Line Art [...] INR (0.8 - 1.2) 1.5 H PTT ([place]) (25.0 - 39.5 Seconds) 30.8 PT Patient/Control [...] L 3.1 L 3.3 L 6.5 L [place] % (Auto) (4.8 - 9.0 %) 10.3 [...] L 0.12 L 0.17 L 0.59 L [place] # (Auto) (0.1 - 0.8 x10 3/uL) [...] and chronic paranasal sinus disease. ASSESSMENT: ASPECTS ([place] Stroke Program Early CT Score) is 10. [...] IMPRESSION: No pathologic bowel distention. Impression By: [email or web address] - Davi Walton M.D. Results: x-ray personally [...] DVT - D/W ICC at 1337 RPT #:[id number] [facility] 2023-03-05 10:01:00 [facility] Neurology Progress Note REPORT#:[id number] REPORT STATUS: Signed DATE:03/05/23 TIME: 1001 PATIENT: TEVIN NYE UNIT #: [id number] ROOM/BED: [place] [address] : 51 AGE: 72 SEX: M ATTEND: [...] Mean 77 03/05 0708 Temp 36.8 03/05 07 Pulse 82 03/05 0708 Resp 17 03/05 [...] Meds + DC'd Last 24 Hrs Ipratropium [place] (ATROVENT) 500 MCG RTQ2H PRN PRN INH [...] (BRIDION) 0 .STK-MED ONE IV (DC) Ipratropium [place] (ATROVENT) 500 MCG RTQ4H INH Sugammadex Sodium [...] (HUMALOG) 0 AC HS SUBQ (DC) Rocuronium [place] (ZEMURON) 0 .STK-MED ONE IV (DC) Clindamycin [...] SA) 600 MG Q12HR PO (DC) Ipratropium [place] (ATROVENT) 500 MCG RTQ6H INH (DC) Mupirocin [...] call for any changes. at 1003 RPT #:[id number] [facility] 2023-03-05 06:47:00 [facility] ([facility]) Cardiology Progress Note REPORT#:[id number] REPORT STATUS: Signed DATE:03/05/23 TIME: 646 PATIENT: TEVNI NYE UNIT #: [id number] ROOM/BED: [place] [address] : 51 AGE: 72 SEX: M ATTEND: [...] 2045 95.9 85 21 128/54 76 97 03/042 86 13 98 03/04 2030 95.9 83 [...] Meds + DC'd Last 24 Hrs Ipratropium [place] (ATROVENT) 500 MCG RTQ2H PRN PRN INH [...] (BRIDION) 0 .STK-MED ONE IV (DC) Ipratropium [place] (ATROVENT) 500 MCG RTQ4H INH Sugammadex Sodium [...] (HUMALOG) 0 AC HS SUBQ (DC) Rocuronium [place] (ZEMURON) 0 .STK-MED ONE IV (DC) Fentanyl Citrate (SUBLIMAZE) 0 .STK-MED ONE .ROUTE (DC) Dexamethasone Sodium Phosphate (DECADRON) 0 .STK-MED ONE .ROUTE (DC) Heparin Sodium (HEPARIN SODIUM) 0 .STK-MED ONE .ROUTE (DC) Lidocaine HCl (XYLOCAINE) 0 .STK-MED ONE .ROUTE (DC) Ondansetron HCl (ZOFRAN) 0 .STK-MED ONE .ROUTE (DC) Rocuronium [place] (ZEMURON) 0 .STK-MED ONE IV (DC) Fentanyl [...] (ZOFRAN) 0 .STK-MED ONE .ROUTE (DC) Rocuronium [place] (ZEMURON) 0 .STK-MED ONE IV (DC) Succinylcholine [...] SA) 600 MG Q12HR PO (DC) Ipratropium [place] (ATROVENT) 500 MCG RTQ6H INH (DC) Mupirocin [...] Device BiPAP BiPAP 4L HFNC Vent Mode 12/5 12/5 4L HFNC FiO2 (%) 35 40 03/04 03/04 03/04 03/04 2259 6 194 1907 Blood Gas Puncture Site Art [...] H 03/05 03/04 03/04 03/04 0201 2348 8983 2132 Chemistry Sodium (134 - 147 mEq/L) [...] Albumin (3.4 - 5.0 g/dL) 3.40 03/042 20552 1907 1758 Chemistry Sodium (134 - 147 [...] %) 3.1 L 3.3 L 6.5 L [place] % (Auto) (4.8 - 9.0 %) 9.5 H 8.7 8.1 Eos % (Auto) (0.3 - 3.7 %) 0.0 L 0.0 L 0.2 L Baso % (Auto) (0.0 - 2.0 %) 0.0 0.2 0.1 Neut # (Auto) (2.0 - 7.6 x10 3/uL) 3.39 4.49 7.61 H Lymph # (Auto) (1.0 - 3.8 x10 3/uL) 0.12 L 0.17 L 0.59 L [place] # (Auto) (0.1 - 0.8 x10 3/uL) [...] Report Impression - Status: SIGNED Entered: 03/04/2023 1937 IMPRESSION: 1. Lines and tubes are in [...] and chronic paranasal sinus disease. ASSESSMENT: ASPECTS ([place] Stroke Program Early CT Score) is 10. Impression By: Jose Juan Schuler M.D. Diagnosis, Assessment Plan Consultants: anesthesiology, cardiology, cardiovascular surgery, critical/ robotic technician, hospitalist Free Text DxA P Notes Free Text DxA P Notes: 1- Severe COPD with exacerbation: As per Pulm 2- Recent pulmonary embolism on Eliquis 3- NSTEMI/Multivessel coronary artery disease: S/P CBBG, extubated and doing fair 5- Hypertension 6- History of tobacco use at 0649 RPT #:[id number] [facility] 2023-03-05 02:33:00 [id number] [address] PATIENT NAME: TEVIN NYE ADMIT DATE: 03/03/23 ACCOUNT NO: [id number] ROOM NO: [facility] AGE: 72 REPORT TYPE: eELECTROCARDIOGRAM REPORT SEX: M ADMITTING PHYSICIAN:Luci Beyer MD ATTENDING PHYSICIAN:Luci Beyer MD Order: [id number] Test Reason : Cardiac Surgery Post Op [...] MD at 1332 PATIENT NAME: TEVIN NYE [facility] 2023-03-04 19:40:00 [facility] ([facility]) Neurology Consultation Note REPORT#:[id number] REPORT STATUS: Signed DATE:03/04/23 TIME: 1939 PATIENT: TEVIN NYE UNIT #: [id number] ROOM/BED: : 51 AGE: 72 SEX: M ATTEND: [...] cancer s/p radiation, COPD, PE in November who presented to an OSH with dyspnea on exertion and NSTEMI. Patient was vound to have multivessel CAD. Patient was transferred to [facility] for CABG evaluation. Preoperatively the patient was [...] Meds + DC'd Last 24 Hrs Ipratropium [place] (ATROVENT) 500 MCG RTQ2H PRN PRN INH [...] MG TABLET) 17.2 MG BEDTIME PO Ipratropium [place] (ATROVENT) 500 MCG RTQ4H INH Sugammadex Sodium [...] (HUMALOG) 0 AC HS SUBQ (DC) Rocuronium [place] (ZEMURON) 0 .STK-MED ONE IV (DC) Fentanyl Citrate (SUBLIMAZE) 0 .STK-MED ONE .ROUTE (DC) Dexamethasone Sodium Phosphate (DECADRON) 0 .STK-MED ONE .ROUTE (DC) Heparin Sodium (HEPARIN SODIUM) 0 .STK-MED ONE .ROUTE (DC) Lidocaine HCl (XYLOCAINE) 0 .STK-MED ONE .ROUTE (DC) Ondansetron HCl (ZOFRAN) 0 .STK-MED ONE .ROUTE (DC) Rocuronium [place] (ZEMURON) 0 .STK-MED ONE IV (DC) Fentanyl [...] (ZOFRAN) 0 .STK-MED ONE .ROUTE (DC) Rocuronium [place] (ZEMURON) 0 .STK-MED ONE IV (DC) Succinylcholine [...] TAB SA) 600 MG Q12HR PO Ipratropium [place] (ATROVENT) 500 MCG RTQ6H INH (DC) Mupirocin [...] 617 *H 03/04 03/03 03/03 03/03 0354 7 2036 2036 Chemistry Sodium (134 - 147 [...] 03/04 1539 1508 1230 0235 Coagulation PTT ([place]) (25.0 - 39.5 Seconds) 80.6 H Activated Coag Time (74 - 137 SEC) 967 H 834 H 179 H 03/037 Coagulation INR (0.8 - 1.2) 1.3 H PTT ([place]) (25.0 - 39.5 Seconds) 39.0 PT Patient/Control [...] %) 6.5 L 5.0 L 6.4 L [place] % (Auto) (4.8 - 9.0 %) 8.1 2.8 L 7.8 Eos % (Auto) (0.3 - 3.7 %) 0.2 L 0.2 L 1.0 Baso % (Auto) (0.0 - 2.0 %) 0.1 0.2 0.4 Neut # (Auto) (2.0 - 7.6 x10 3/uL) 7.61 H 4.95 4.18 Lymph # (Auto) (1.0 - 3.8 x10 3/uL) 0.59 L 0.27 L 0.32 L [place] # (Auto) (0.1 - 0.8 x10 3/uL) [...] pH (5.0 - 7.0) 5.0 Ur Specific [place] (1.005 - 1.030) 1.043 H Urine Protein [...] and chronic paranasal sinus disease. ASSESSMENT: ASPECTS ([place] Stroke Program Early CT Score) is 10. [...] neurology with any change in exam. at 8817 Addendum 1: 03/06/23 1020 by Faraz Maldonado MD Patient was not a TNK candidate given his major surgery within the last 2 weeks. at 1021 [facility] #:[id number] [facility] 2023-03-04 18:25:00 [id number] [address] PATIENT NAME: TEVIN NYE ADMIT DATE: 03/03/23 ACCOUNT NO: [id number] ROOM NO: 220 AGE: 72 REPORT TYPE: eELECTROCARDIOGRAM REPORT SEX: M ADMITTING PHYSICIAN:Luci Beyer MD ATTENDING PHYSICIAN:Luci Beyer MD Order: [id number] Test Reason : Cardiac Surgery Post Op [...] MD at 1801 PATIENT NAME: TEVIN NYE [facility] 2023-03-04 18:21:00 [facility] ([facility]) Critical Care Consult Note REPORT#:[id number] REPORT STATUS: Signed DATE:03/04/23 TIME: 1820 PATIENT: TEVIN NYE UNIT #: [id number] ROOM/BED: [place] [address] : 51 AGE: 72 SEX: M ATTEND: Luci Beyer MD ADM AUTHOR: Noé Madrid MD * ALL edits or amendments must be made on the electronic/computer document * History of Present Illness HPI Requesting clinician: Dr Mars Beyer Reason for consult: Chest pain Wheezing Dyspnea Multivessel coronary artery disease Non-ST elevation MT Status post CABG x5 and ILAA Elective [...] (November 2022 on eliquis) who presented to [facility] with chest pain, dyspnea on exertion, and NSTEMI. Coronary angiogram was done and revealed severe multivessel coronary artery disease. Patient was then transferred to [facility] for CV surgery evaluation and need [...] Dose Route Stop Time Status Admin Ipratropium [place] 500 MCG RTQ2H PRN PRN 03/07 1655 AC (ATROVENT) INH 04/06 165 Ipratropium [place] 500 MCG RTQ4H 03/04 2000 AC (ATROVENT) [...] 03/04 1307 DC Methylsulfate .ROUTE (PROSTIGMIN) Rocuronium [place] 0 .STK-MED ONE 03/04 1019 DC (ZEMURON) IV Rocuronium [place] 0 .STK-MED ONE 03/04 0754 DC (ZEMURON) IV Phenylephrine HCl 0 .STK-MED ONE 03/04 0736 DC (JESUS-SYNEPHRINE 10MG/ .ROUTE ML AMP) Rocuronium [place] 0 .STK-MED ONE 03/04 0731 DC (ZEMURON) [...] 2200 AC 03/03 (PERFOROMIST) NEB 04/02 Ipratropium [place] 500 MCG RTQ6H 03/03 2100 DC 03/04 [...] Status Admin Atorvastatin Calcium 40 MG 2100 03/05 2100 AC (LIPITOR) PO 04/04 2059 Amiodarone HCl [...] Status Admin Aspirin 81 MG DAILY 03/04 225 AC (ASPIRIN) PO 04/03 225 Gabapentin 200 [...] IV Magnesium Sulfate 0 .STK-MED ONE 03/04 727 DC (MAGNESIUM SULFATE) .ROUTE Morphine Sulfate 1 MG ONCE ONE 03/04 0700 DC 03/04 (morphine SULFATE) IV 03/04 0701 0704 Acetaminophen 1,000 MG PREOP ONCALL 03/03 2000 DC 03/04 (TYLENOL EXTRA PO 04/02 195 0434 STRENGTH) Gabapentin 200 MG PREOP ONCALL [...] Sodium Chloride 100 ML .STK-MED ONE 03/04 07 DC (SODIUM CHLORIDE IV 0.9%) Eye, Ear, [...] Meds + DC'd Last 24 Hrs Ipratropium [place] (ATROVENT) 500 MCG RTQ2H PRN PRN INH [...] MG TABLET) 17.2 MG BEDTIME PO Ipratropium [place] (ATROVENT) 500 MCG RTQ4H INH Perflutren Protein [...] (HUMALOG) 0 AC HS SUBQ (DC) Rocuronium [place] (ZEMURON) 0 .STK-MED ONE IV (DC) Fentanyl Citrate (SUBLIMAZE) 0 .STK-MED ONE .ROUTE (DC) Dexamethasone Sodium Phosphate (DECADRON) 0 .STK-MED ONE .ROUTE (DC) Heparin Sodium (HEPARIN SODIUM) 0 .STK-MED ONE .ROUTE (DC) Lidocaine HCl (XYLOCAINE) 0 .STK-MED ONE .ROUTE (DC) Ondansetron HCl (ZOFRAN) 0 .STK-MED ONE .ROUTE (DC) Rocuronium [place] (ZEMURON) 0 .STK-MED ONE IV (DC) Fentanyl [...] (ZOFRAN) 0 .STK-MED ONE .ROUTE (DC) Rocuronium [place] (ZEMURON) 0 .STK-MED ONE IV (DC) Succinylcholine [...] TAB SA) 600 MG Q12HR PO Ipratropium [place] (ATROVENT) 500 MCG RTQ6H INH (DC) Mupirocin [...] %) 6.5 L 5.0 L 6.4 L [place] % (Auto) (4.8 - 9.0 %) 8.1 2.8 L 7.8 Eos % (Auto) (0.3 - 3.7 %) 0.2 L 0.2 L 1.0 Baso % (Auto) (0.0 - 2.0 %) 0.1 0.2 0.4 Neut # (Auto) (2.0 - 7.6 x10 3/uL) 7.61 H 4.95 4.18 Lymph # (Auto) (1.0 - 3.8 x10 3/uL) 0.59 L 0.27 L 0.32 L [place] # (Auto) (0.1 - 0.8 x10 3/uL) [...] pH (5.0 - 7.0) 5.0 Ur Specific [place] (1.005 - 1.030) 1.043 H Urine Protein [...] Plan Consultants: anesthesiology, cardiology, cardiovascular surgery, critical/ robotic technician, hospitalist Plan discussed with: consultants, nurse, interdisc care team Critical care time: Minutes: 55 Code Status/Resusc. Discussion Resuscitation discussion: Discussed with: patient, family Code status: full code Free text DxA P: Problem List: Chest pain Wheezing Dyspnea Multivessel coronary artery disease Non-ST elevation MT Status post CABG x5 and ILAA Elective [...] (November 2022 on eliquis) who presented to [facility] with chest pain, dyspnea on exertion, and NSTEMI. Coronary angiogram was done and revealed severe multivessel coronary artery disease. Patient was then transferred to [facility] for CV surgery evaluation and need [...] SCDs for DVT prophylaxis Noé Madrid MD [facility] 03/04/2023 6.32 PM at 1836 RPT #:[id number] [facility] 2023-03-04 17:30:00 [id number] [place] [address] PATIENT NAME: TEVIN NYE ADMIT DATE: 03/03/23 ACCOUNT NO: [id number] ROOM NO: [facility] AGE: 72 REPORT TYPE: OPERATIVE REPORT [...] 4. Posterior pericardiotomy. SURGEON: Luci Beyer M.D. BOTTOM POUNDER CEMENT SHOES: Samuel Mcguire. ANESTHESIOLOGIST: Dr. Diallo. ANESTHESIA: General endotracheal anesthesia. ESTIMATED BLOOD LOSS: 100 mL INDICATIONS: Mr. Nye is a 72-year-old gentleman with severe triple-vessel coronary artery disease and casyjsxx-ol-xfnyuw COPD. After due preop counseling, he was [...] mm in size. Arteriotomy was performed with [place] and extended with Ruiz scissors. A [...] mm in size. Arteriotomy was performed with [place] and extended with Ruiz scissors. A [...] mm in size. Arteriotomy was performed with [place] and extended with Ruiz scissors. A [...] mm in size. Arteriotomy was performed with [place] and extended with Ruiz scissors. MCCORMICK was anastomosed in end-to-side manner using running 8-0 Prolene suture. MCCORMICK pedicle was tacked to epicardium using two interrupted 6-0 Prolene suture. A slit was made in the pericardium on the left aspect, so as to accommodate the MCCORMICK. Careful de-aeration was performed and the cross-clamp was released. One ventricular wire was placed. A 28-Albanian chest tube was placed in the mediastinum, [...] Dictated: 03/04/2023 17:30:44 Date Transcribed: 03/04/2023 20:41:42 AC/PAP Receipt ID: [id number] Authenticated by Mars Beyer MD On 03/05/2023 02:30:07 PM at 0230 PATIENT NAME: TEVIN NYE [facility] 2023-03-04 17:30:00 [facility] ([facility]) Clinical Note REPORT#:[id number] REPORT STATUS: Signed DATE:03/04/23 TIME: 1729 PATIENT: TEVIN NYE UNIT #: [id number] ROOM/BED: [place] [address] : 51 AGE: 72 SEX: M ATTEND: [...] Length of Stay: 13.176% at 1730 RPT #:[id number] [facility] 2023-03-04 17:19:00 [facility] ([facility]) Brief Op Note REPORT#:[id number] REPORT STATUS: Signed DATE:03/04/23 TIME: 171 PATIENT: TEVIN NYE UNIT #: [id number] ROOM/BED: [facility]-1 : 51 AGE: 72 SEX: M ATTEND: Luci Beyer MD ADM AUTHOR: Luci Beyer MD * ALL edits or amendments must be made on the electronic/computer document * See Addendum Op/Inv Proc Note - Brief Pre-procedure diagnosis: CAD COPD Post-procedure diagnosis: same as pre procedure dx Procedures performed: CABG x 4 (MCCORMICK-LAD,SVG-Leana, SVG-OM, SVG-PDA) ALAA EVH (LGSV) Posterior pericardiotomy Primary Surgeon: Christiana Phone Screener(s): Maynor Findings: LAD-2mm diseased aretery Complications: none Estimated blood loss in ml's: 200 cc Specimens removed/altered: ELIAS at 1726 Addendum 1: 03/04/231728 by Samuel Mcguire MD I assisted Dr Beyer with the aparicio features of this operation including CABGs and LAAA Samuel Mcguire MD at 1820 RPT #:[id number] [facility] 2023-03-04 17:17:00 [id number] [place] [address] PATIENT NAME: TEVIN NYE ADMIT DATE: 03/03/23 ACCOUNT NO: [id number] ROOM NO: [facility] AGE: 72 REPORT TYPE: eECHOCARDIOGRAM REPORT SEX: M ADMITTING PHYSICIAN:Luci Beyer MD ATTENDING PHYSICIAN:Luci Beyer MD *[place] [address] Transthoracic Echocardiogram Patient: Tevin Nye Study Date: 03/04/2023 BP: 109 / 55 Location: [facility] URN: [id number] : 1950 Age: 72 Height: 67 in / 170.2 cm Gender: M Weight: 181.6 lb / 82.6 kg BMI/BSA: 28.5 kg/m 2 / 1.94 m 2 *Ordering Physician: * Luci Beyer MD *Interpreting Physician: * Anuj Sylvester MD *Vice President Corporate Communications: * Tori Gunn Indications: Pre-Op CABG. Study [...] cm 2 --------- Pulmonic valve Value Ref FL v, ED 0.8 m/sec --------- Tricuspid valve [...] 17:17 at 1717 PATIENT NAME: TEVIN NYE [facility] 2023-03-04 12:46:00 [facility] ([facility] Pulmonology Progress Note REPORT#:[id number] REPORT STATUS: Signed DATE:03/04/23 TIME: 1246 PATIENT: TEVIN NYE UNIT #: [id number] ROOM/BED: [place] [id number] : [birth year] AGE: 72 SEX: M ATTEND: [...] Lispro (HUMALOG) 0 AC HS SUBQ Rocuronium [place] (ZEMURON) 0 .STK-MED ONE IV (DC) Fentanyl Citrate (SUBLIMAZE) 0 .STK-MED ONE .ROUTE (DC) Dexamethasone Sodium Phosphate (DECADRON) 0 .STK-MED ONE .ROUTE (DC) Heparin Sodium (HEPARIN SODIUM) 0 .STK-MED ONE .ROUTE (DC) Lidocaine HCl (XYLOCAINE) 0 .STK-MED ONE .ROUTE (DC) Ondansetron HCl (ZOFRAN) 0 .STK-MED ONE .ROUTE (DC) Rocuronium [place] (ZEMURON) 0 .STK-MED ONE IV (DC) Fentanyl [...] (ZOFRAN) 0 .STK-MED ONE .ROUTE (DC) Rocuronium [place] (ZEMURON) 0 .STK-MED ONE IV (DC) Succinylcholine [...] TAB SA) 600 MG Q12HR PO Ipratropium [place] (ATROVENT) 500 MCG RTQ6H INH Mupirocin (BACTROBAN [...] no guarding Extremities: no clubbing, no cyanosis Neuro/EXPENSE ANALYST: alert, oriented X 3, no motor deficits [...] Tests 03/04 03/04 03/04 03/03 1228 0726 0354 2036 Chemistry Sodium (134 - 147 mEq/L) [...] INR (0.8 - 1.2) 1.3 H PTT ([place]) (25.0 - 39.5 Seconds) 80.6 H 39.0 [...] - 32.0 %) 5.0 L 6.4 L [place] % (Auto) (4.8 - 9.0 %) 2.8 L 7.8 Eos % (Auto) (0.3 - 3.7 %) 0.2 L 1.0 Baso % (Auto) (0.0 - 2.0 %) 0.2 0.4 Neut # (Auto) (2.0 - 7.6 x10 3/uL) 4.95 4.18 Lymph # (Auto) (1.0 - 3.8 x10 3/uL) 0.27 L 0.32 L [place] # (Auto) (0.1 - 0.8 x10 3/uL) [...] pH (5.0 - 7.0) 5.0 Ur Specific [place] (1.005 - 1.030) 1.043 H Urine Protein [...] Impressions: CAT SCAN - CT ANGIO CHEST 03/032 Report Impression - Status: SIGNED Entered: 03/04/2023 [...] perioperatively - D/W CTS at 1252 RPT #:[id number] [facility] 2023-03-04 07:07:00 [id number] [place] [address] PATIENT NAME: TEVIN NYE ADMIT DATE: 03/03/23 ACCOUNT NO: [id number] ROOM NO: [facility] AGE: 72 REPORT TYPE: eELECTROCARDIOGRAM REPORT SEX: M ADMITTING PHYSICIAN:Luci Beyer MD ATTENDING PHYSICIAN:Luci Beyer MD Order: [id number] Test Reason : chest pain Test Date/Time [...] MD at 1714 PATIENT NAME: TEVIN NYE [facility] 2023-03-04 06:57:00 [facility] Cardiology Progress Note REPORT#:[id number] REPORT STATUS: Signed DATE:03/04/23 TIME: 656 PATIENT: TEVIN NYE UNIT #: [id number] ROOM/BED: [place] [address] : 51 AGE: 72 SEX: M ATTEND: [...] 99 03/04 0015 93 156/73 107 98 06 0011 92 156/74 107 97 03/04 0010 93 06 2320 99 27 142/65 97 100 03/03 2315 97 22 156/74 106 100 06 2310 100 22 139/69 98 100 06 [...] 03/03 2120 92 10 141/65 93 98 03/038 92 11 130/62 89 95 03/03 2115 [...] TAB SA) 600 MG Q12HR PO Ipratropium [place] (ATROVENT) 500 MCG RTQ6H INH Mupirocin (BACTROBAN [...] INR (0.8 - 1.2) 1.3 H PTT ([place]) (25.0 - 39.5 Seconds) 80.6 H 39.0 PT Patient/Control Mix (9.3 - 12.9 SECONDS) 14.4 H Laboratory Tests 03/04 03/03 0235 2037 Hematology WBC (4.5 - 11.0 [...] - 32.0 %) 5.0 L 6.4 L [place] % (Auto) (4.8 - 9.0 %) 2.8 L 7.8 Eos % (Auto) (0.3 - 3.7 %) 0.2 L 1.0 Baso % (Auto) (0.0 - 2.0 %) 0.2 0.4 Neut # (Auto) (2.0 - 7.6 x10 3/uL) 4.95 4.18 Lymph # (Auto) (1.0 - 3.8 x10 3/uL) 0.27 L 0.32 L [place] # (Auto) (0.1 - 0.8 x10 3/uL) [...] pH (5.0 - 7.0) 5.0 Ur Specific [place] (1.005 - 1.030) 1.043 H Urine Protein [...] M.D. ULTRASOUND - DUP EXTRACRANIAL SCOTTY 03/03 0580 Report Impression - Status: SIGNED Entered: 03/04/2023 [...] WILL DO ECHO TODAY at 0658 RPT #:[id number] [facility] 2023-03-04 02:31:00 [facility] ([facility]) Critical Care Consult Note REPORT#:[id number] REPORT STATUS: Signed DATE:03/04/23 TIME: 230 PATIENT: TEVIN NYE UNIT #: [id number] ROOM/BED: [place] [address] : 51 AGE: 72 SEX: M ATTEND: [...] (November 2022 on eliquis) who presented to [facility] with chest pain, dyspnea on exertion, and NSTEMI. Coronary angiogram was done and revealed severe multivessel coronary artery disease. Patient was then transferred to [facility] for CV surgery evaluation and need [...] TAB SA) 600 MG Q12HR PO Ipratropium [place] (ATROVENT) 500 MCG RTQ6H INH Mupirocin (BACTROBAN [...] Extremities: moves all Results Findings/Data: Laboratory Tests 06/26/23 2037: [Embedded Image Not Available] Laboratory Tests 03/03 [...] INR (0.8 - 1.2) 1.3 H PTT ([place]) (25.0 - 39.5 Seconds) 39.0 PT Patient/Control [...] (Auto) (14.0 - 32.0 %) 6.4 L [place] % (Auto) (4.8 - 9.0 %) 7.8 Eos % (Auto) (0.3 - 3.7 %) 1.0 Baso % (Auto) (0.0 - 2.0 %) 0.4 Neut # (Auto) (2.0 - 7.6 x10 3/uL) 4.18 Lymph # (Auto) (1.0 - 3.8 x10 3/uL) 0.32 L [place] # (Auto) (0.1 - 0.8 x10 3/uL) [...] CAT SCAN - CT ANGIO CHEST 03/03 3282 Report Impression - Status: SIGNED Entered: 03/04/2023 [...] monitor UOP Heme: stable at 0248 RPT #:[id number] [facility] 2023-03-03 21:35:00 [facility] ([facility]) Cardiology Consultation REPORT#:[id number] REPORT STATUS: Signed DATE:03/03/23 TIME: 2134 PATIENT: TEVIN NYE UNIT #: [id number] ROOM/BED: [facility]-1 : 51 AGE: 72 SEX: M ATTEND: [...] Notes: CARDIOLOGY CONSULT DICTATED at 2136 RPT #:[id number] [facility] 2023-03-03 21:32:00 [id number] [place] [address] PATIENT NAME: TEVIN NYE ADMIT DATE: 03/03/23 ACCOUNT NO: [id number] ROOM NO: G.[id number] AGE: 72 REPORT TYPE: CONSULTATION REPORT SEX: [...] bypass surgery. The patient was admitted to [facility] for chest pain. Cardiac cath is being done for non-STEMI. It revealed 3-vessel disease and he is transferred to [facility] for bypass surgery. PAST MEDICAL HISTORY: Otherwise, [...] Date Transcribed: 03/03/2023 22:51:12 KRISTOPHER/AUGUSTO Receipt ID: [id number] Authenticated by Anuj Sylvester MD On 03/04/2023 09:01:13 PM at 0901 PATIENT NAME: TEVIN NYE [facility] 2023-03-03 20:15:00 [facility] ([facility]) Pulmonary Consultation Note REPORT#:[id number] REPORT STATUS: Signed DATE:03/03/23 TIME: 2014 PATIENT: TEVIN NYE UNIT #: [id number] ROOM/BED: [place] [address] : 51 AGE: 72 SEX: M ATTEND: [...] 2200 AC (PERFOROMIST) NEB 04/02 2159 Ipratropium [place] 500 MCG RTQ6H 03/03 2100 AC ([place]ROVENT) [...] no guarding Extremities: no clubbing, no cyanosis Neuro/EXPENSE ANALYST: alert, oriented X 3, no motor deficits [...] the patient with you. at 2027 RPT #:[id number] [facility] 2023-03-03 19:54:00 [facility] ([facility]) History Physical - Adult REPORT#:[id number] REPORT STATUS: Signed DATE:03/03/23 TIME: 1953 PATIENT: TEVIN NYE UNIT #: [id number] ROOM/BED: 3343-1 : 51 AGE: 73 SEX: [...] (November 2022 on eliquis) who presented to [facility] with chest pain, dyspnea on exertion, and NSTEMI. Coronary angiogram was done and revealed severe multivessel coronary artery disease. Patient was then transferred to [facility] for CV surgery evaluation and need [...] pain Extremities: moves all, normal capillary refill Neuro/EXPENSE ANALYST: alert, oriented X 3 Skin: dry, intact [...] (November 2022 on eliquis) who presented to [facility] with chest pain, dyspnea on exertion, and NSTEMI. Coronary angiogram was done and revealed severe multivessel coronary artery disease. Patient was then transferred to [facility] for CV surgery evaluation and need for CABG. PLAN Admit patient to CVICU Initiate preop workup Incentive spirometer teaching Carotid ultrasound BLE vein mapping CT chest non-contrast UA to r/o UTI Echocardiogram Heparin and Nitro drip Consult pulmonary, cardiology, and robotic technician Coronary angiogram reviewed and patient will benefit from surgical revascularizaton. The surgery, risks involved, STS score, benefits, complications and alternatives were explained to the patient and his brother. He acknowledged understanding and is willing to proceed. We will tentatively schedule him for surgery tomorrow morning. Further recommendations to follow. at 5888 RPT #:[id number] [facility]
[2025-05-31 00:58] LABS: Absolute Lymphocytes (CBC) 0.7 K/uL (0.7-4.9); Hematocrit 47.4 % (39.6-49.0); Hemoglobin 15.6 g/dL (13.6-17.9); MCH 30.6 pg (27.0-35.0); MCHC 32.9 g/dL (32.0-36.0); MCV 92.9 fL (80-100); MPV 8.4 fL (7.6-11.3); Nucleated RBC Absolute Count 0.0 (0-0); Nucleated Red Blood Cells % 0.5 % (0-0); RBC Red Blood Cell Count 5.11 M/uL (4.33-5.43); White Blood Count 5.00 thou/uL (4.3-10.9)
[2025-05-31 01:03] LABS: Anion Gap 7.7 mEq/L (5.0-15.0); BUN Blood Urea Nitrogen 32.0 mg/dL (7-18); Glucose Level 174.0 mg/dL (74-106); Potassium 3.7 mEq/L (3.5-5.1)
[2025-05-31 01:23] LABS: Influenza A Ag Negative; Influenza B Ag Negative; SARS-CoV-2 Antigen Rapid Res Negative (Negative)
--- NOTE | 2025-05-31 02:40 | EDPHYS ---
[facility] Name: Sergey Nye Age: 75 yrs Sex: Male : 1950 Arrival Date: 05/31/2025 Time: 00:20 Bed IW10 Private MD: ED Physician Kolton Loya HPI: 05/31 00:31 This 75 yrs old Male presents to ER via EMS with complaints of Shortness Of Breath. tt7 00:31 Patient was doing some breathing exercises over the phone with therapy for his COPD tt7 when he became short of breath and had a coughing fit. He states he then heard a rattling noise in his chest whenever he was breathing. He felt like he had phlegm stuck in his lungs. He denies fever or chest pain. He denies sick contacts. History includes COPD not requiring supplemental oxygen, coronary artery disease status post remote CABG, diabetes. Historical: - Allergies: 01:05 PENICILLINS; ha1 - Home Meds: 01:05 Eliquis oral [Active]; ha1 - PMHx: 01:05 Anxiety; Atrial fibrillation; COPD; diabetes mellitus; Hypertensive disorder; Prostate ha1 Cancer; - Immunization history:: Adult Immunizations up to date. - Infectious Disease History:: Denies. - Social history:: Smoking status: Patient/guardian denies using tobacco, the patient reports quitting approximately 16 years ago. ROS: 00:32 Constitutional: negative for fever. Cardiovascular: negative for chest pain. tt7 Abdomen/GI: negative for abdominal pain, nausea, vomiting, diarrhea. MS/Extremity: negative for injury and deformity. Skin: negative for rash. Neuro: negative for focal weakness. 00:32 Respiratory: Positive for cough, shortness of breath, Negative for hemoptysis, orthopnea, Exam: 00:33 Constitutional: vital signs reviewed, well appearing. Head/Face: normocephalic, tt7 atraumatic. Eyes: no conjunctival injection, anicteric sclerae. ENT: mucus membranes moist. Neck: trachea midline, no JVD, no meningismus. Chest/axilla: normal chest wall appearance and motion, nontender, no crepitus. Cardiovascular: regular rate and rhythm, no murmurs, no rubs, no lower extremity edema. Respiratory: normal respiratory effort, no accessory muscle use, mild expiratory wheezing in bilateral upper lung tidwell, moderate crackles in the left sided lung tidwell Abdomen/GI: soft, nondistended, nontender, no guarding or rebound, negative Florez's sign, no McBurney point tenderness. Back: normal ROM. Skin: warm, dry, intact, normal turgor, normal color, no rash. MS/ Extremity: normal ROM of extremities, no gross deformities. Neuro: alert and oriented with appropriate mental status, normal speech, follows commands, no focal neurologic deficits. Psych: appropriate mood and affect. Vital Signs: 00:20 BP 180 / 71; Pulse 62; Resp 20 S; Temp 97.6; Pulse Ox 97% on 2 lpm NC; Weight 87.09 kg; ha1 Height 5 ft. 7 in. ; 01:09 BP 147 / 70; Pulse 61; Resp 18 S; Pulse Ox 100% on 8 lpm Nebulizer Mask; ha1 02:00 BP 164 / 71; Pulse 63; Resp 18 S; Pulse Ox 94% on R/A; ha1 03:07 BP 155 / 75; Pulse 65; Resp 18 S; Pulse Ox 94% on R/A; ha1 00:20 Body Mass Index 30.07 (87.09 kg, 170.18 cm) ha1 MDM: 00:22 Medical Screening Exam initiated tt7 00:34 Differential diagnosis: Chronic Obstructive Pulmonary Disease pneumonia, Pneumothorax tt7 COVID-19 infection, influenza infection, anemia. Historians other than the Patient: EMS: Obtained on scene history and history of care and route to the hospital from EMS. Care significantly affected by the following chronic conditions: Chronic Obstructive Pulmonary Disease. ED course: Patient with shortness of breath and rattling lung sound, his vital signs are stable, not in respiratory distress and not hypoxic on room air, the patient has some wheezing and crackles on physical exam, will treat the patient for COPD exacerbation given his history with intravenous steroid and oral doxycycline, will provide him with a DuoNeb treatment to help with his breathing, workup initiated to include CBC, metabolic panel, flu and COVID antigens, and a chest x-ray.. 01:16 Data reviewed: vital signs, nurses notes, old medical records, lab test result(s), CBC, tt7 electrolytes. ED course: Patient's laboratory studies show an elevated creatinine of 2.01, I reviewed patient's past medical records including ED visit from 03/01 which showed that at that time patient had a creatinine of 2.06, this supports that patient's elevated creatinine as a result of stable chronic kidney disease and not acute kidney injury. 02:32 Data reviewed: radiologic studies, plain films. ED course: I independently interpreted tt7 the patient's chest x-ray. On my interpretation, chest x-ray demonstrates no radiographic evidence of acute cardiopulmonary disease. 02:38 ED course: I reassessed the patient after emergency department interventions, he is tt7 resting comfortably and in no acute respiratory distress, saturating 94% on room air, his lung sounds have improved, his wheezes have resolved and there are only very faint crackles, given the results of his evaluation I believe the patient to be having a COPD exacerbation, he is already received systemic steroids and first dose of doxycycline, I will discharge the patient on short course of doxycycline and have him follow-up with his primary care physician. After completion of the patient's emergency department evaluation, I do not suspect a life-threatening or disabling process. Patient is medically stable and not in need of emergent medical intervention. I had a detailed discussion with the patient regarding the historical points, exam findings, emergency department evaluation, diagnostic results, and the discharge diagnosis. I instructed the patient on outpatient management of their condition. I discussed the need for outpatient follow-up with a primary care physician. I informed the patient on return precautions, including the need to return to the ED if symptoms do not improve, worsen, or if there are any questions or concerns that arise at home. The patient was discharged in stable condition. 05/31 00: Order name: Basic Metabolic Panel; Complete Time: :05/31: Order name: CBC with Diff; Complete Time: 05/31: Order name: COVID-19 Ag + Flu A+B Ag; Complete Time: 05/31:29 Order name: XRAY Chest (1 view) 05/31: Order name: IV Saline Lock; Complete Time: 00:55 05/31:29 Order name: Labs collected and sent; Complete Time: 00:55 05/31:29 Order name: O2 Per Protocol; Complete Time: 00:05/31: Order name: O2 Sat Monitoring; Complete Time: 00:55 tt7 Administered Medications: 00:55 Drug: Doxycycline PO 100 mg PO once Route: PO; ha1 01:20 Follow up: Response: No adverse reaction; Marked relief of symptoms ha1 00:55 Drug: Decadron - Dexamethasone IVP 10 mg IVP once Route: IVP; Site: left antecubital; ha1 01:20 Follow up: Response: No adverse reaction; Marked relief of symptoms ha1 00:55 Drug: DuoNeb Nebulize (3:1) (2.5 mg - 0.5 mg) 3 ml Nebulizer once Route: Nebulizer; ha1 01:20 Follow up: Response: No adverse reaction; Marked relief of symptoms ha1 Disposition Summary: 05/31/25 02:40 Discharge Ordered Notes: Location: Home tt7 Problem: an acute exacerbation tt7 Symptoms: have improved tt7 Condition: Stable tt7 Diagnosis - COPD/ Chronic obstructive pulmonary disease with (acute) exacerbation tt7 Followup: tt7 - With: Emergency Department - When: As needed - Reason: Followup: tt7 - With: Private Physician - When: 1 - 2 days - Reason: Recheck today's complaints, Re-evaluation by your physician Discharge Instructions: - Discharge Summary Sheet tt7 - Chronic Obstructive Pulmonary Disease Exacerbation tt7 Forms: - Medication Reconciliation Form tt7 - Antibiotic Education tt7 - Prescription Opioid Use tt7 - Patient Portal Instructions tt7 - Leadership Thank You Letter tt7 Prescriptions: - Doxycycline Hyclate 100 mg Oral tablet - take 1 tablet ORAL route every 12 hours for 5 days; 10 tablet; Refills: 0, tt7 Product Selection Permitted Signatures: Dispatcher [employer] Danita Garcia RN RN ha1 Kolton Loya DO DO tt7
--- NOTE | 2025-05-31 02:40 | ER ---
Nurse's Notes [facility] Name: Sergey Nye Age: 75 yrs Sex: Male : 1950 Arrival Date: 05/31/2025 Time: 00:20 Bed IW10 Private MD: Diagnosis: COPD/ Chronic obstructive pulmonary disease with (acute) exacerbation Presentation: 05/31 00:20 Chief complaint: EMS states: SHORTNESS OF BREATH, COUGH. BREATHING TREATMENT GIVEN AND ha1 125 mg OF SOLU-MEDROL GIVEN. 00:20 Coronavirus screen: Client denies travel out of the [place] in the last 14 days. Ebola ha1 Screen: No symptoms or risks identified at this time. 00:20 Method Of Arrival: EMS: [facility] ha1 00:20 Initial Sepsis Screen: Does the patient meet any 2 criteria? No. Patient's initial ha1 sepsis screen is negative. Does the patient have a suspected source of infection? No. Patient's initial sepsis screen is negative. Risk Assessment: Do you want to hurt yourself or someone else? Patient reports no desire to harm self or others. Onset of symptoms was May 31, 2025. 00:20 Acuity: RAYA 3 ha1 Triage Assessment: 00:20 General: Appears uncomfortable, Behavior is cooperative. Pain: Denies pain. Neuro: ha1 Level of Consciousness is awake, alert, obeys commands, Oriented to person, place, time, situation. Cardiovascular: Reports shortness of breath, Capillary refill < 3 seconds Patient's skin is warm and dry. Respiratory: Reports shortness of breath at rest on exertion cough that is productive, Airway is patent Respiratory effort is even, unlabored, Respiratory pattern is regular, symmetrical, Breath sounds with crackles bilaterally. Onset: The symptoms/episode began/occurred this morning, the patient has moderate shortness of breath. GI: No signs and/or symptoms were reported involving the gastrointestinal system. Abdomen is round obese. : No signs and/or symptoms were reported regarding the genitourinary system. Derm: Skin is pink, warm \T\ dry. Musculoskeletal: Circulation, motion, and sensation intact. Range of motion: intact in all extremities. Historical: - Allergies: 01:05 PENICILLINS; ha1 - Home Meds: 01:05 Eliquis oral [Active]; ha1 - PMHx: 01:05 Anxiety; Atrial fibrillation; COPD; diabetes mellitus; Hypertensive disorder; Prostate ha1 Cancer; - Immunization history:: Adult Immunizations up to date. - Infectious Disease History:: Denies. - Social history:: Smoking status: Patient/guardian denies using tobacco, the patient reports quitting approximately 16 years ago. Screenin:10 [facility] ED Fall Risk Assessment (Adult) History of falling in the last 3 months, ha1 including since admission No falls in past 3 months (0 pts) Confusion or Disorientation No (0 pts) Intoxicated or Sedated No (0 pts) Impaired Gait Yes (1 pt) Mobility Assist Device Used Yes (1 pt) Altered Elimination No (0 pt) Score/Fall Risk Level 3 or more points = High Risk Oriented to surroundings, Maintained a safe environment, Educated pt \T\ family on fall prevention, incl call for assistance when getting out of bed, Hourly rounding (assess needs \T\ fall precautionary measures) done. Abuse screen: Denies threats or abuse. Denies injuries from another. Nutritional screening: No deficits noted. Tuberculosis screening: No symptoms or risk factors identified. Assessment: 00:20 General: SEE TRIAGE ASSESSMENT . ha1 00:20 Cardiovascular: Reports shortness of breath, Rhythm is regular. ha1 01:08 Reassessment: Patient and/or family updated on plan of care and expected duration. Pain ha1 level reassessed. Patient is alert, oriented x 3, equal unlabored respirations, skin warm/dry/pink. Patient states feeling better. Patient states symptoms have improved. 02:00 Reassessment: Patient and/or family updated on plan of care and expected duration. Pain ha1 level reassessed. Patient is alert, oriented x 3, equal unlabored respirations, skin warm/dry/pink. Patient states feeling better. Patient states symptoms have improved. 03:06 Reassessment: Patient and/or family updated on plan of care and expected duration. Pain ha1 level reassessed. Patient is alert, oriented x 3, equal unlabored respirations, skin warm/dry/pink. Patient states feeling better. Patient states symptoms have improved. Vital Signs: 00:20 BP 180 / 71; Pulse 62; Resp 20 S; Temp 97.6; Pulse Ox 97% on 2 lpm NC; Weight 87.09 kg; ha1 Height 5 ft. 7 in. ; 01:09 BP 147 / 70; Pulse 61; Resp 18 S; Pulse Ox 100% on 8 lpm Nebulizer Mask; ha1 02:00 BP 164 / 71; Pulse 63; Resp 18 S; Pulse Ox 94% on R/A; ha1 03:07 BP 155 / 75; Pulse 65; Resp 18 S; Pulse Ox 94% on R/A; ha1 00:20 Body Mass Index 30.07 (87.09 kg, 170.18 cm) ha1 ED Course: 00:20 Patient arrived in ED. rv1 00:20 Maintain EMS IV. Dressing intact. Good blood return noted. Site clean \T\ dry. Gauge \T\ white 1 site: 20 G LAC. Flushed with 10 mL NS. 00:20 Patient has correct armband on for positive identification. Bed in low position. Call ha1 light in reach. Side rails up X 1. Adult w/ patient. 00:21 Kolton Loya DO is Attending Physician. tt7 00:34 Danita Wallace, RN is Primary Nurse. ha1 00:55 COVID-19 Ag + Flu A+B Ag Sent. ha1 00:55 Basic Metabolic Panel Sent. ha1 00:55 CBC with Diff Sent. ha1 01:04 Triage completed. ha1 01:12 Client placed on continuous cardiac and pulse oximetry monitoring. NIBP monitoring ha1 applied. playground monitor on. 01:20 Door closed. Noise minimized. Warm blanket given. Pillow given. ha1 01:28 XRAY Chest (1 view) In Process Unspecified. EDMS 03:15 No provider procedures requiring assistance completed. IV discontinued, intact, ha1 bleeding controlled, No redness/swelling at site. Pressure dressing applied. 03:17 Arm band placed on right wrist. ha1 03:18 Provided Education on: FOLLOW UPS . ha1 Administered Medications: 00:55 Drug: Doxycycline PO 100 mg PO once Route: PO; ha1 01:20 Follow up: Response: No adverse reaction; Marked relief of symptoms ha1 00:55 Drug: Decadron - Dexamethasone IVP 10 mg IVP once Route: IVP; Site: left antecubital; ha1 01:20 Follow up: Response: No adverse reaction; Marked relief of symptoms ha1 00:55 Drug: DuoNeb Nebulize (3:1) (2.5 mg - 0.5 mg) 3 ml Nebulizer once Route: Nebulizer; ha1 01:20 Follow up: Response: No adverse reaction; Marked relief of symptoms ha1 Medication: 01:11 VIS not applicable for this client. ha1 Outcome: 02:40 Discharge ordered by . tt7 03:17 Discharged to home via wheelchair, ha1 03:17 Condition: stable 03:17 Discharge instructions given to patient, Instructed on discharge instructions, follow up and referral plans. medication usage, Demonstrated understanding of instructions, follow-up care, medications, Prescriptions given X 1, 03:20 Patient left the ED. ha1 Signatures: Dispatcher [employer] Danita Garcia RN RN ha1 Vaishnavi Larios rv1 Kolton Loya DO DO tt7 Corrections: (The following items were deleted from the chart) 01:04 00:20 BP 180 / 71; Pulse 62bpm; Resp 20bpm; Spontaneous; Pulse Ox 97% 2 lpm Nasal ha1 Cannula; Temp 97.6F; ha1
[2025-05-31 03:28] VITALS: O2SAT 94
[2025-05-31 03:29] VITALS: BP 155/75
--- NOTE | 2025-05-31 06:06 | RAD REPORT ---
CLINICAL HISTORY: COPD. COMPARISON: XR Chest 12/10/2023. TECHNIQUE: XR CHEST 1 VIEW 05/31/2025 12:29 AM CDT FINDINGS: The heart is normal in size following sternotomy. Lungs are clear without consolidation, atelectasis, mass or edema. There is no pleural effusion. There is no pneumothorax. There are several old posterior lower right rib fractures. IMPRESSION: Clear lungs. Electronically signed by: Fernando Ochoa MD 05/31/2025 02:28 AM CDT RP Due to temporary technical issues with the PACS/Time Warden reporting system, reports are being shelby d by the in-house radiologist without review as a courtesy to ensure prompt reporting the interpreting radiologist is fully responsible for the content of the report. Transcribed Date/Time: 05/31/2025 6:06 AM
== END 2025-05-31 03:20 | disposition home or self-care (01) ==
LOC: ER 00:22
DX: J44.1 Chronic obstructive pulmonary disease with (acute) exacerbation (principal); I48.91 Unspecified atrial fibrillation; Z79.01 Long term (current) use of anticoagulants; I10 Essential (primary) hypertension; Z95.1 Presence of aortocoronary bypass graft; Z11.52 Encounter for screening for COVID-19
CPT/HCPCS: 85025; 80048; 36415; 71045; 96374; 99285; 87428; J7613; J7644; J1100